=== PATIENT | female | born 1950 | race Caucasian/White ===

== ENCOUNTER → 2018-05-30 14:26 | Outpatient (CLI) | payer MEDICARE, SELFPAY ==
[2016-12-11 09:04] VITALS: BMI 28.8
[2018-05-30 16:33] LABS: AST(SGOT) 27 U/L (15-37); Alanine Aminotransfer ALT/SGPT 48 U/L (13-56); Albumin, Serum 4.3 g/dL (3.2-5.0); Alkaline Phosphatase 61 U/L (45-117); Anion Gap 8 (5-15); BUN 30 mg/dL (7-18); BUN/Creat Ratio 18.9 RATIO (10-20); Bilirubin, Direct 0.14 mg/dL (0.00-0.30); Calcium,Total 9.2 mg/dL (8.5-10.1); Chloride 102 mmol/L (98-107); Cholesterol 240 mg/dL (200); Creatinine, Serum 1.59 mg/dL (0.55-1.02); EST Glomerular Filtration Rate 34 mL/min (>60); Est Glom Filt Rate - Afr Amer 42 mL/min (>60); Globulin 3.6 g/dL (2.2-4.2); Glucose 151 mg/dL (74-106); High Density Lipoprotein 45 mg/dL; Microalbumin:Creatinine Ratio 52.9 mg/g CRE (<30 mg/g CRE); Potassium 4.3 mmol/L (3.5-5.1); Protein, Total 7.9 g/dL (6.4-8.2); Sodium Level 138 mmol/L (136-145); Thyroid Stim Hormone (TSH) 1.03 uIU/mL (0.358-3.74); Triglycerides 389 mg/dL; Very Low Density Lipoprotein 78 mg/dL (5-40)
== END ==
PROVIDERS: Family Provider Family Medicine; PCP Family Medicine; Visit Provider Family Medicine
DX: E11.9 Type 2 diabetes mellitus without complications (principal)
CPT/HCPCS: 36415; 80048; 80061; 80076; 82043; 82570; 84443

== ENCOUNTER → 2018-08-19 | Outpatient (CLI) | payer MEDICARE, SELFPAY ==
--- NOTE | 2018-08-19 09:41 | RAD_ITS ---
STUDY: X-RAY - PELVIS AND RIGHT HIP REASON FOR EXAM: Female, 68 years old. Right hip pain TECHNIQUE: 3 views of the pelvis and hip. COMPARISON: 12/10/2015 FINDINGS: There is a non-specific bowel gas pattern. Normal visualized soft tissue structures. There is narrowing with cortical sclerosis and osteophyte formation of the sacroiliac joint consistent with degenerative osteoarthritic changes. Normal bilateral superior and inferior pubic rami. There are degenerative changes of the pubic symphysis with articular narrowing and sclerosis. Normal bilateral ischial tuberosities. Degenerative changes of the left hip also demonstrated. There are osteoarthritic changes of the femoral head with marginal osteophyte formation. There is osteoarthritic spur formation of the acetabular rim. There is mild articular joint space narrowing of the hip. RAD/HIP, UNI W/ Pelvis 2-3 Views IMPRESSION: Mild osteoarthrosis of the right hip. Degenerative changes of the bilateral sacroiliac joints, pubic symphysis and left hip. Stable exam. Electronically Signed: Dejan Davis MD at 7:28 EDT , Service support ,
== END | disposition home or self-care (01) ==
LOC: MTRAD 09:39
PROVIDERS: Family Provider Family Medicine; PCP Family Medicine; Referring Provider Family Medicine; Visit Provider Family Medicine
DX: M79.604 Pain in right leg (principal)
CPT/HCPCS: 73502

== ENCOUNTER → 2018-10-21 | Outpatient (CLI) | payer MEDICARE, SELFPAY ==
--- NOTE | 2018-10-21 07:02 | BI_ITS ---
MAMMOGRAPHY - BILATERAL SCREENING REASON FOR EXAM: Female, 68 years old. Routine annual screening examination. PERTINENT HISTORY: Non-contributory. Remote right stereotactic breast biopsy. TECHNIQUE: Digital bilateral breast lavon (3D mammographic acquisition) in the CC and MLO projections. 2-D mediolateral oblique (MLO) and craniocaudad (CC) views of both breasts were obtained. CAD: Full Field Digital Mammography with Computer Added Detection was performed. COMPARISON: Comparison is made with prior study dated July 03, 2015 and December 04, 2010. FINDINGS: Breast Composition: The breasts are almost entirely fatty. There are no dominant masses or suspicious calcifications. Once again, a tissue clip marker is seen in the upper midportion of the right breast. Stable appearance of the bilateral axillary lymph nodes. No other significant abnormalities are identified. There has been no significant change since the prior study. BI/SCREEN MAMM (CAD) W/LAVON BILAT IMPRESSION: Stable bilateral screening mammogram. Yearly follow-up mammogram recommended. (A) ASSESSMENT CATEGORY: BIRADS Category 2: Benign. A letter regarding these results will be sent to the patient by the facility within 30 days. Approximately 10% of breast cancers are not detected by mammography. A normal mammogram should not delay biopsy of a clinically suspicious abnormality. [id number] Electronically Signed: Demarcus Reese, at 8:57 EDT , Service support ,
== END | disposition home or self-care (01) ==
LOC: OPBI 07:00
PROVIDERS: Family Provider Family Medicine; PCP Family Medicine; Referring Provider Family Medicine; Visit Provider Family Medicine
DX: Z12.31 Encounter for screening mammogram for malignant neoplasm of breast (principal)
CPT/HCPCS: 77063; 77067

== ENCOUNTER 2019-02-20 10:23 | Observation (INO) | payer MEDICARE, SELFPAY ==
[2019-02-20] VITALS (11 sets, daily range): BP systolic 120–139; BP diastolic 65–111; PULSE 71–105; RESP 14–21; TEMP 36.6–36.8; O2SAT 94–98; BMI 31.4; BMI 32.9
--- NOTE | 2019-02-20 10:41 | RAD_ITS ---
STUDY: X-RAY CHEST REASON FOR EXAM: Female, 69 years old. Chest pain and shortness of breath TECHNIQUE: PA and lateral views of the chest. COMPARISON: None. FINDINGS: The lungs are clear and expanded. There is no demonstrated pleural abnormality. Normal size heart. Normal mediastinum and bryan. Normal visualized pulmonary arteries. Normal visualized aortic arch and descending thoracic aorta. There are diffuse degenerative changes of the visualized thoracic spine. Normal visualized ribs, clavicles, and shoulders. RAD/Chest PA and Lateral IMPRESSION: No visualized acute process Electronically Signed: Tomer Roman MD at 12:44 EST , Service support ,
--- NOTE | 2019-02-20 10:41 | EKG12_ITS ---
Test Reason : CP Blood Pressure : / mmHG Vent. Rate : 084 BPM Atrial Rate : 084 BPM P-R Int : 136 ms QRS Dur : 082 ms QT Int : 358 ms P-R-T Axes : 064 -16 101 degrees QTc Int : 423 ms Normal sinus rhythm Nonspecific T wave abnormality Poor R-Wave Progression Abnormal ECG Confirmed by ALECIA ROMERO, LUANNE ([id number]), video tape editor TRENTON MORALES ([id number]) on 02/22/2019 11:02:19 AM Referred By: Evan Love Confirmed By:LUANNE ALSTON MD
[2019-02-20 11:00] LABS: Absolute Lymphocyte Count 2.38 X10^3/uL (0.83-4.51); Absolute Neutrophil Count 6.9 X10^3/uL (2.0-7.7); Basophil# 0.08 X10^3/uL; Basophil% 0.8 % (0-1); Eosinophil# 0.28 X10^3/uL; Eosinophils% 2.7 % (0-5); Hemoglobin 14.6 g/dL (12.0-15.0); Lymphocyte # 2.38 X10^3/ul (4.0); Lymphocyte % 22.9 % (19-41); Mean Corp Hgb Conc 33.2 g/dL (32-36); Mean Corpuscular Hgb 30.5 pg (27.0-32.0); Mean Corpuscular Volume 92.1 fL (81-99); Mean Platelet Vol. 11.1 fl (6.2-12.0); Monocyte# 0.67 X10^3/uL; Monocyte% 6.4 % (0-10); NRBC Flagged by Analyzer 0 % (0-5); Neutrophil # 6.94 X10^3/uL (2.7-7.7); Neutrophil % 66.8 % (47-70); Platelet Count 236 K/mm3 (150-450); RBC Distribution Width CV 12.3 % (11.6-14.6); RBC Distribution Width SD 42.1 fl (35.1-43.9); Red Blood Count 4.78 M/mm3 (4.2-5.4); White Blood Count 10.4 K/mm3 (4.4-11.0)
[2019-02-20 11:15] LABS: Anion Gap 7 (5-15); BUN 23 mg/dL (7-18); Calcium,Total 9.1 mg/dL (8.5-10.1); Chloride 104 mmol/L (98-107); Creatinine, Serum 1.28 mg/dL (0.55-1.02); EST Glomerular Filtration Rate 44 mL/min (>60); Est Glom Filt Rate - Afr Amer 53 mL/min (>60); Estimated Creatinine Clearance 32.81 ml/min; Glucose 248 mg/dL (74-106); Potassium 4.5 mmol/L (3.5-5.1); Sodium Level 135 mmol/L (136-145)
--- NOTE | 2019-02-20 11:26 | ED.VIS.GEN ---
History of Present Illness Chief Complaint: Chest Pain Informant: Patient Onset: Days Context: Sudden Onset Timing: Intermittent Current Severity: Mild Maximum Severity: Severe Narrative: Patient is a 69-year-old female presenting with a sudden onset of shortness of breath and chest pain. Patient states she was walking to take a shower when she suddenly felt tightness and heaviness in her chest and felt she could not catch her breath. She states symptoms lasted for about 20 minutes. She did have some radiation of pain down her left arm. She states that she only has a mild heaviness in her chest now. She states she used her CPAP with his oxygen for shortness of breath but did help her symptoms. She notes she is never had anything like this before. She did have a cardiac catheterization about 20 years ago and was told that it was normal. She has a history of diabetes and hypertension. She denies any other complaints at this time. She notes yesterday as she was having chills but that is not occurring today. She did have some mild nausea when the episode happened. She denies any swelling of her extremities or history of blood clots. Past Medical History - Allergies and Home Meds Allergies/Adverse Reactions: Allergies cefazolin Allergy (Verified 02/20/19 10:27) Shortness of breath codeine Allergy (Verified 02/20/19 10:27) Shortness of breath morphine Allergy (Verified 02/20/19 10:27) Other naloxone [Naloxone] Allergy (Verified 02/20/19 10:27) Shortness of breath pentazocine Allergy (Verified 02/20/19 10:27) Shortness of breath pentazocine lactate [From Talwin] Allergy (Verified 02/20/19 10:27) Shortness of breath acetaminophen [From Tylenol] Adverse Reaction (Verified 02/20/19 10:27) Nausea Primary Care Physician: Lianet Peters MD [Primary Care Provider] - Past Medical History: - - HTN, DM Surgical History: total knee arthroplasty Smoking Status: Current every day smoker Review of Systems All systems negative except as indicated Cardiovascular: Reports: Chest pain Respiratory: Reports: Dyspnea Physical Exam Vital Signs/Narrative: Vital Signs Temp Pulse Resp BP Pulse Ox 02/20/19 10:24 98 F 91 18 124/111 H 98 Inital Vital Signs reviewed: Yes General: Well nourished, Well developed, No Acute Distress Head: Normocephalic, Atraumatic Eyes: Perrl, EOMI ENT: Moist mucous membranes, No rhinorrhea Neck: Supple, Nontender Cardiovascular: Regular rate, Regular rhythm, No murmurs Respiratory: No distress, CTA bilaterally, Chest nontender. Negative for: Wheezing Abdomen: Soft, Nontender, Nondistended, Normal bowel sounds Back: Nontender, Normal Inspection Extremities: Nontender, No edema Skin: Normal color, No rash Neurological: Alert, Oriented x3, Cranial nerves II-XII grossly intact, Normal Strength, Normal Sensation Psychological: Normal affect, Normal Mood Diagnostic/Tx/Re-eval Chest X-Ray - ED: 2 View, Read by ED Physician, No Acute Disease Laboratory Data 02/20/19 02/20/19 10:30 10:30 WBC 10.4 RBC 4.78 Hgb 14.6 Hct 44.0 MCV 92.1 MCH 30.5 MCHC 33.2 RDW Std Deviation 42.1 RDW Coeff of Dede 12.3 Plt Count 236 MPV 11.1 Immature Gran % (Auto) 0.400 Neut % (Auto) 66.8 Lymph % (Auto) 22.9 [place] % (Auto) 6.4 Eos % (Auto) 2.7 Baso % (Auto) 0.8 Absolute Neuts (auto) 6.9 Absolute Lymphs (auto) 2.38 Nucleated RBC % 0 Sodium 135 L Potassium 4.5 Chloride 104 Carbon Dioxide 24.0 Anion Gap 7 BUN 23 H Creatinine 1.28 H Estim Creat Clear Calc 32.81 Est GFR (MDRD) Af Amer 53 L Est GFR (MDRD) Non-Af 44 L BUN/Creatinine Ratio 18.0 Glucose 248 H Calcium 9.1 Troponin I 0.034 - Rhythm Strip Rhythm Strip: Sinus Rhythm Rate: 84 Ectopy: None - EKG Initial EKG Interpretation: Sinus Rhythm, - - Sinus rhythm at a rate of 84 Normal axis Normal intervals Nonspecific T wave inversion in aVL Compared to prior EKG on 12/09/2016 T wave inversion is new but no other dynamic changes - Medical Decision Making Patient is evaluated for an episode of chest pain and shortness of breath. She does have some cardiac risk factors including age and hypertension as well as nonspecific repolarization in her EKG. Troponin is normal. Patient is given 1 of oral nitroglycerin and does have improvement of her pain. She is given a full dose aspirin in the emergency room. She will be admitted for further cardiac evaluation and likely stress test. She is agreeable to this plan. Discussed with Dr. Love who is agreeable with plan. Patient stable for the PCU at time of disposition. ED Disposition - Plan for ED Patient: Disposition: Home or Assisted Living Diagnosis: Chest pain Referrals: Lianet Peters MD [Primary Care Provider] -
[2019-02-20] MEDS: Aspirin 81 MG TAB.CHEW 324 MG PO (11:50)
[2019-02-20] MEDS: Nitroglycerin SL (ED/IMG/CATH) 0.4 MG TABLET SUBLINGUAL (12:02)
--- NOTE | 2019-02-20 12:20 | NURSING ---
PCU OBS KIEL MENDEZ
--- NOTE | 2019-02-20 12:55 | HP.PCM_ITS ---
History of Present Illness Date of Admission: 02/20/19 Chief Complaint: CP and SOB The patient is a 69 year old F with PMH as below who presents with about a 1 year history of intermittent chest pain. There was really no association with activity over the last year with this chest pain, however today she had a recurrence of this sharp chest pain in the middle of her chest that would radiate down her left arm and it became worse with exertion as she was climbing up the stairs. She thought about using her 's CPAP to see if that would help and it did not really relieve the pain. She presented to the ER where she had a normal EKG and a troponin of 0.034. She has not had this chest pain prior to a year ago but there is been significant stress in her life with health issues in her . She denies any lightheadedness or dizziness but does have significant shortness of breath with these episodes. She states that the chest pain is better but still not gone and she still has some pain going down her left arm. She has had a cardiac cath and stress test years ago and does not remember why. Past Medical History Past Medical History (Chronic Problems): Chronic Problems CAD (coronary artery disease) (Chronic) HTN (hypertension) (Chronic) HLD (hyperlipidemia) (Chronic) GERD (gastroesophageal reflux disease) (Chronic) Type II diabetes mellitus (Chronic) Allergies cefazolin Allergy (Verified 02/20/19 10:27) Shortness of breath codeine Allergy (Verified 02/20/19 10:27) Shortness of breath morphine Allergy (Verified 02/20/19 10:27) Other naloxone [Naloxone] Allergy (Verified 02/20/19 10:27) Shortness of breath pentazocine Allergy (Verified 02/20/19 10:27) Shortness of breath pentazocine lactate [From Talwin] Allergy (Verified 02/20/19 10:27) Shortness of breath acetaminophen [From Tylenol] Adverse Reaction (Verified 02/20/19 10:27) Nausea Home Medications: Ambulatory Orders Medication Instructions Recorded Aspirin E.C. [Ecotrin] 81 mg PO DAILY 12/15/13 Escitalopram Oxalate [Lexapro] 10 mg PO DAILY 02/20/19 Glimepiride 4 mg PO DAILY 02/20/19 Metformin HCl 1,000 mg PO QHS 02/20/19 Quinapril HCl 20 mg PO DAILY 02/20/19 Surgical History: cholecystectomy, total knee arthroplasty, - - Carpal tunnel Lives: Spouse/ Significant Other Smoking Status: Current every day smoker Tobacco Use: Cigarettes Alcohol: None Drugs: None - *Family History Maternal History Items: Dementia Paternal History Items: Cancer Review of Systems Constitutional: Denies: Chills, Fever, Weight Change HEENT: Denies: Head Aches, Sinus Congestion, Sinus Drainage Cardiovascular: Reports: Chest Pain. Denies: Palpitations Respiratory: Reports: Shortness of Breath. Denies: Cough, Shortness of breath at rest, Sputum production Gastrointestinal: Denies: Abdominal Pain, Nausea, Vomiting Genitourinary: Denies: Dysuria Musculoskeletal: Denies: Joint Pain, Joint Tenderness Skin: Denies: Rash, Wounds Neurological: Denies: Numbness, Tingling, Focal weakness Psychiatric: Denies: Anxiety, Depression Hematologic/ Lymphatic: Denies: Easy Bruising, Easy Bleeding VTE Information - Inpt Only VTE Present on Admission: No Patient Problems: Active and Suspected Problems Chest pain (Acute) - Physical Exam Vitals/I&O's: Vital Signs Temp Pulse Resp BP Pulse Ox 98 F 78 21 H 131/73 H 95 02/20/19 10:24 02/20/19 12:08 02/20/19 12:08 02/20/19 12:08 02/20/19 12:08 Oxygen Delivery Method Room Air Weight: 172 lb Body Mass Index (BMI) 31.4 Finger Stick Blood Glucose 275 General: Alert, Oriented x3, Cooperative, No apparent distress HEENT: Atraumatic, PERRLA, EOMI, Normocephalic Oral: Moist Mucosa Neck: Supple, No JVD Lungs: Clear to auscultation, Normal air movement, No rhonchi, No wheeze, No rales Cardiovascular: Regular rate, Regular Rhythm, Normal S1, Normal S2, No murmurs Abdomen: Soft, Non Tender, Non-Distended, No Hepato-splenomegaly Extremities: No edema, Capillary Refill Less than 3 Seconds Skin: No rashes, No breakdown Neurological: Neuro grossly intact, Sensory exam intact to light touch and pain Psych/Mental Status: Normal Affect, Appropriate Laboratory Results 02/20/19 10:30: WBC 10.4, RBC 4.78, Hgb 14.6, Hct 44.0, MCV 92.1, MCH 30.5, MCHC 33.2, RDW Std Deviation 42.1, RDW Coeff of Dede 12.3, Plt Count 236, MPV 11.1, Immature Gran % (Auto) 0.400, Neut % (Auto) 66.8, Lymph % (Auto) 22.9, [place] % (Auto) 6.4, Eos % (Auto) 2.7, Baso % (Auto) 0.8, Absolute Neuts (auto) 6.9, Absolute Lymphs (auto) 2.38, Nucleated RBC % 0 02/20/19 10:30: Sodium 135 L, Potassium 4.5, Chloride 104, Carbon Dioxide 24.0, Anion Gap 7, BUN 23 H, Creatinine 1.28 H, Estim Creat Clear Calc 32.81, Est GFR (MDRD) Af Amer 53 L, Est GFR (MDRD) Non-Af 44 L, BUN/Creatinine Ratio 18.0, Glucose 248 H, Calcium 9.1, Troponin I 0.034 Current Medications Nitroglycerin (Nitrostat) 0.4 mg SUBLINGUAL Q5M PRN PRN Reason: Chest pain Last Admin: 02/20/19 12:02 Dose: 0.4 mg Documented by: Assessment/Plan All Active Problems Chest pain (Acute) 1. Chest pain with shortness of breath/HTN -This is been going on intermittently for a year. Episodes usually last just a few minutes -Initial troponin is 0.034, we will serialized -Obtain a lipid profile in the morning -EKG was unremarkable -Nuclear exercise stress test in the morning -We will continue with quinapril 2. DM 2 -She is on metformin as an outpatient, will hold and start her on sliding scale insulin -Accu-Cheks AC at bedtime 3. Anxiety/depression -Stable, she does have significant stress at home with her 's health issues -Continue with Lexapro DVT: Ambulation since she is an observation status patient Code Visit OBSV E&M: 48659 Initial observation care L2
--- NOTE | 2019-02-20 13:47 | EKG12_ITS ---
Test Reason : Blood Pressure : / mmHG Vent. Rate : 075 BPM Atrial Rate : 075 BPM P-R Int : 140 ms QRS Dur : 080 ms QT Int : 386 ms P-R-T Axes : 059 -15 108 degrees QTc Int : 431 ms Normal sinus rhythm with sinus arrhythmia Nonspecific T wave abnormality Poor R-Wave Progression Abnormal ECG Confirmed by ALECIA ROMERO, LUANNE ([id number]), image editor TRENTON MORALES ([id number]) on 02/22/2019 11:18:02 AM Referred By: Evan Love Confirmed By:LUANNE ALSTON MD
[2019-02-20 14:31] LABS: Bedside Glucose 125 mg/dL (70-110)
[2019-02-20] MEDS: Nitroglycerin (INPATIENT USE) 0.4 MG TAB.SUBL SUBLINGUAL (16:56)
[2019-02-20] MEDS: Insulin Lispro 100 UNIT/ML INSULN.PEN SC ×2 (16:56→22:06)
[2019-02-20 17:00] LABS: Bedside Glucose 261 mg/dL (70-110)
[2019-02-20 23:21] LABS: Bedside Glucose 155 mg/dL (70-110)
[2019-02-21] VITALS (12 sets, daily range): BP systolic 103–161; BP diastolic 64–73; PULSE 81–106; RESP 16–20; TEMP 36.6–36.7; O2SAT 93–97
[2019-02-21] MEDS: Aspirin E.C. 81 MG Tablet PO (05:14)
[2019-02-21] MEDS: Lisinopril 20 MG Tablet PO (05:14)
[2019-02-21] MEDS: 0.9% Saline Lock 10 ML Syringe IV (05:19)
--- NOTE | 2019-02-21 05:55 | EKG12_ITS ---
Test Reason : AM EKG Blood Pressure : / mmHG Vent. Rate : 084 BPM Atrial Rate : 084 BPM P-R Int : 140 ms QRS Dur : 080 ms QT Int : 354 ms P-R-T Axes : 066 -17 107 degrees QTc Int : 418 ms Normal sinus rhythm Possible Left atrial enlargement Nonspecific T wave abnormality Abnormal ECG When compared with ECG of 20-FEB-2019 12:41, MANUAL COMPARISON REQUIRED, DATA IS UNCONFIRMED Confirmed by FELIPE ROMERO, ANTONIO ([id number]), fashion editor SHANNON SOTELO ([id number]) on 02/28/2019 3:13:12 PM Referred By: Evan Love Confirmed By:ANTONIO WANG MD
[2019-02-21 06:12] LABS: Cholesterol 238 mg/dL (200); High Density Lipoprotein 45 mg/dL; Triglycerides 298 mg/dL; Very Low Density Lipoprotein 60 mg/dL (5-40)
[2019-02-21 06:50] LABS: Bedside Glucose 252 mg/dL (70-110)
[2019-02-21] MEDS: Escitalopram Oxalate 10 MG Tablet PO (12:13)
[2019-02-21] MEDS: Insulin Lispro 100 UNIT/ML INSULN.PEN SC ×3 (12:13→21:56)
--- NOTE | 2019-02-21 12:18 | STRESSREP ---
Stress Test Report Date: 02-21-19 Procedure: Pharmacologic stress nuclear imaging study Indications: Pain Consent: Per the patient Procedure: The patient underwent pharmacologic (Regadenoson) evaluation with a peak heart rate of 114 beats per minute (75 %predicted maximal heart rate) and a peak blood pressure of 130/80 mmHg. The baseline ECG demonstrated normal sinus rhythm; poor R wave progression; nonspecific T wave abnormality. The peak pharmacologic ECG demonstrated no obvious ECG changes. There were no cardiac dysrhythmias pretest, during pharmacologic infusion, or recovery. There was no complaint of chest discomfort during pharmacologic infusion or recovery. The examination was discontinued secondary to completion of protocol. Impression: 1. Pharmacologic (Regadenoson) evaluation 2. Peak pharmacologic ECG with no obvious ECG changes. 3. There were no cardiac dysrhythmias pretest, during pharmacologic infusion, or recovery. 4. Nuclear images pending Myocardial perfusion imaging study: Technique: The patient was injected with 12.0 millicuries of technetium 99m Cardiolite and subsequently rest SPECT Cardiolite nuclear imaging was obtained in the horizontal long, vertical long, and short axis views. The patient underwent pharmacologic (Regadenoson) evaluation with a peak heart rate of 114 beats per minute (75 % percent predicted maximal heart rate) and a peak blood pressure of 130/80 mmHg. The patient was injected with 36.0 millicuries of technetium 99m Cardiolite and subsequently stress SPECT Cardiolite nuclear imaging was obtained in the horizontal long, vertical long, and short axis views. A gated Cardiolite study at peak stress was obtained. Interpretation: Rest and stress SPECT Cardiolite nuclear imaging status post realignment, normalization, and attenuation correction demonstrate the appearance of diminished tracer uptake in portions of the distal anterior, anteroseptal, and anterior apical segments which appear to be somewhat more prominent following stress as opposed to rest. There is end systolic thickening and brightening. The gated Cardiolite study demonstrates myocardial thickening and inward wall motion. The reported LVEF is 38 %. Impression: 1. Rest and stress SPECT currently clear imaging demonstrate myocardial perfusion changes potentially compatible with the effects of shifting soft tissue attenuation/artifact although an area of stress-induced myocardial ischemia involving portions of the distal anterior, anteroseptal, anteroapical segments cannot necessarily be excluded. 2. The gated Cardiolite study reports an LVEF of 38 %. This note was generated with Dragon dictation software. It may contain incorrect words, spelling, and punctuation that were not noted in checking the note before signing.
[2019-02-21 12:20] LABS: Bedside Glucose 288 mg/dL (70-110)
--- NOTE | 2019-02-21 12:41 | PN_ITS ---
Patient Problems: Active and Suspected Problems Chest pain (Acute) Subjective: Patient seen and examined. She was admitted with a complaint of chest pain. Troponins x3 were negative. Patient due for stress test today. Vitals/I&O's: Vital Signs Temp Pulse Resp BP Pulse Ox 97.8 F 84 20 H 126/71 H 95 02/21/19 12:26 02/21/19 12:26 02/21/19 12:26 02/21/19 12:26 02/21/19 12:26 Oxygen Delivery Method Room Air Weight: 180 lb 1.883 oz Body Mass Index (BMI) 32.9 Finger Stick Blood Glucose 275 Intake and Output for Last 24 Hours 02/19/19 02/20/19 02/21/19 23:59 23:59 23:59 Intake Total 480 / 880 640 / 640 Balance 480 / 880 640 / 640 General: Alert, Oriented x3, Cooperative, No apparent distress HEENT: Atraumatic, PERRLA, EOMI, Normocephalic Oral: Moist Mucosa Neck: Supple, No JVD, Negative Carotid Bruits Lungs: Clear to auscultation, Normal air movement, No rhonchi, No wheeze, No rales Cardiovascular: Regular rate, Regular Rhythm, Normal S1, Normal S2, No murmurs Abdomen: Bowel Sounds Present, Soft, Non Tender, Non-Distended, No Hepato- splenomegaly Extremities: No clubbing, No cyanosis, No edema, Capillary Refill Less than 3 Seconds Skin: No rashes, No breakdown Musculoskeletal: No Tenderness to Palpation of Joints or Extremities Lymphatic: No Cervical, Supraclavicular, or Inguinal Adenopathy Neurological: Cranial nerves II-XII grossly intact, Neuro grossly intact, Motor Exam 5/5 strength throughout Psych/Mental Status: Normal Affect, Appropriate, Alert and oriented to time, place, person, mood and affect Laboratory Results 02/20/19 13:30: Troponin I 0.044 02/20/19 14:24: POC Glucose 125 H 02/20/19 16:46: Troponin I 0.034 02/20/19 16:49: POC Glucose 261 H 02/20/19 22:05: POC Glucose 155 H 02/21/19 05:25: Triglycerides 298 H, Cholesterol 238 H, LDL Cholesterol 133 H, VLDL Cholesterol 60 H, HDL Cholesterol 45 02/21/19 06:44: POC Glucose 252 H 02/21/19 12:08: POC Glucose 288 H Current [facility]ations [facility] [facility] Admin: 02/21/19 05:14 Dose: 81 mg Documented by: Dextrose (D50w Syringe) 0 gm IV X1 PRN; Protocol PRN Reason: Hypoglycemia Escitalopram Oxalate (Lexapro) 10 mg PO DAILY [facility] Last Admin: 02/21/19 12:13 Dose: 10 mg Documented by: Glucagon () 1 mg IM .X1 PRN PRN Reason: Hypoglycemia Sodium Chloride () 250 mls @ 15 mls/hr IV .[id number] PRN PRN Reason: Saline Flush Insulin Human Lispro (Humalog Kwikpen (Bkc)) 0 unit SC ACHS [facility]; Protocol Last Admin: 02/21/19 12:13 Dose: 6 units Documented by: Lisinopril (Zestril) 20 mg PO DAILY [facility] Last Admin: 02/21/19 05:14 Dose: 20 mg Documented by: Nitroglycerin (Nitrostat) 0.4 mg SUBLINGUAL Q5M PRN PRN Reason: CARDIAC/CHEST PAIN Last Admin: 02/20/19 16:56 Dose: 0.4 mg Documented by: Sodium Chloride () 10 - 40 ml IV UD PRN PRN Reason: SALINE FLUSH Last Admin: 02/21/19 05:19 Dose: 10 ml Documented by: STROKE Vital Signs/Narrative: Vital Signs Temp Pulse Resp BP Pulse Ox 02/21/19 12:26 97.8 F 84 20 H 126/71 H 95 Medical Necessity - Tobacco Use Smoking Status: Current every day smoker Tobacco Use: Cigarettes Assessment/Plan All Active Problems Chest pain (Acute) 1. Chest pain * admitted with a complaint of chest pain; troponin was 0.034, and remained around the same after trending * had stress test today which was abnormal. * cardiology consulted; will await rec's * 2D echo ordered * lipid panel showed cholesterol of 238, triglycerides of 298 and LDL of 133. * will start high intensity statin. * 2. Type 2 diabetes mellitus: metformin on hold. ISS> Accuchecks ACHS 3. Hypertension: on lisinopril 20mg daily. 4. Anxiety and depression: on lexapro DVT prophylaxis: start therapeutic lovenox Code Visit OBSV E&M: 31501 Subsequent observation care L2
--- NOTE | 2019-02-21 12:41 | ECHOCS_ITS ---
Reason For Study: CHEST PAIN Procedure This was a 2D Doppler, Color Flow transthoracic echocardiogram. The study was technically difficult. Contrast injection was performed. Exam performed portable in patient room. Left Ventricle Normal LV size. Mild segmental systolic dysfunction (see wall motion). The estimated ejection fraction is 45 %. Diastolic function is indeterminate. Mid-Anterior : Hypokinetic. Mid- anteroseptal : Hypokinetic. Anterior [place] : Hypokinetic. Right Ventricle Normal RV size. Normal systolic function. Atria Normal left atrium. Normal right atrium. No doppler evidence for ASD. Mitral Valve There is mild mitral annular calcification. Extension of the mitral annular calcification onto the base of the posterior mitral valve leaflet. The mitral valve chordae are thickened and/or calcified. Mild (1+) mitral valve insufficiency. Tricuspid Valve Normal tricuspid valve. Trivial tricuspid valve insufficiency. Right ventricular systolic pressure estimated to be 19 mmHg. Aortic Valve Trisinus/trileaflet aortic valve. Normal aortic valve. Trivial aortic valve insufficiency. Pulmonic Valve The pulmonic valve is not well visualized. Great Vessels Normal sized aortic root. Pericardium/Pleural No pericardial effusion. Medication Diluted definity 2.0ml given slow IV push to enhance endocardial definition. MMode/2D Measurements & Calculations LVIDd: 5.2 cm IVSd: 0.91 cm Ao root diam: 3.4 cm LVIDs: 3.7 cm LVPWd: 0.86 cm RVDd: 2.7 cm FS: 29.6 % LAV(MOD-bp): 37.4 ml EDV(MOD-sp4): 117.7 ml SV(MOD-sp4): 42.8 ml LAV(MOD-bp) Indexed: 20.4 ml/m2 ESV(MOD-sp4): 74.9 ml LAV(MOD-sp2): 41.1 ml EF(MOD-sp4): 36.4 % LAV(MOD-sp4): 32.7 ml LA dimension(2D): 4.0 cm LA A4 area: 13.7 cm2 RA A4 area: 9.3 cm2 Time Measurements MV dec time: 0.25 sec Doppler Measurements & Calculations MV E max wild: 66.5 cm/sec Lat Peak E' Wild: 4.7 cm/sec Med Peak E' Iwld: 5.4 cm/sec MV A max wild: 111.0 cm/sec E/E' lat: 14.1 E/E' med: 12.4 MV E/A: 0.60 Ao V2 max: 141.3 cm/sec LV V1 max: 92.9 cm/sec PA V2 max: 104.7 cm/sec Ao max P.0 mmHg LV V1 max P.5 mmHg TR max wild: 200.4 cm/sec TR max P.1 mmHg Interpretation Summary The study was technically difficult. Contrast injection was performed. Mild segmental systolic dysfunction (see wall motion). The estimated ejection fraction is 45 %. There is mild mitral annular calcification. Extension of the mitral annular calcification onto the base of the posterior mitral valve leaflet. The mitral valve chordae are thickened and/or calcified. Mild (1+) mitral valve insufficiency. Trivial tricuspid valve insufficiency. Trivial aortic valve insufficiency. Right ventricular systolic pressure estimated to be 19 mmHg. Diastolic function is indeterminate. Ordering Physician: Maritza Suresh Referring Physician: BRIANA IBRAHIM Performed By: Didi Burrows, MAKENNA, RVT
[2019-02-21] MEDS: Atorvastatin Calcium 40 MG Tablet PO (15:26)
[2019-02-21 16:45] LABS: Bedside Glucose 298 mg/dL (70-110)
[2019-02-21 18:06] LABS: Bedside Glucose 320 mg/dL (70-110)
--- NOTE | 2019-02-21 18:49 | CON.PCM_ITS ---
Problem List (1) Chest pain Status: Acute (2) Abnormal cardiovascular stress test Status: Acute (3) HLD (hyperlipidemia) Status: Chronic (4) HTN (hypertension) Status: Chronic (5) Type II diabetes mellitus Status: Chronic (6) GERD (gastroesophageal reflux disease) Status: Chronic (7) PAD (peripheral artery disease) Status: Chronic Reason for Consult Date of Consultation: 02/21/19 History of Present Illness: The patient is a 69 year [id number] white female who is referred for evaluation of chest pain and an abnormal stress nuclear imaging study. She states for over a year she has been having episodes of chest pain that lasts for several minutes. She notes she gets a combination of heaviness in her chest as well as sharp discomfort in her chest. It can radiate to her back and her shoulder area. With her chest discomfort she becomes short of breath and dyspneic. This can occur at rest but also with exertion. She does not recall having ongoing nausea, emesis, or diaphoresis. There is been no report of near syncope or syncope. She states she has not undergone cardiovascular testing recently. Based upon her ongoing symptoms she presented to the hospital for further evaluation and care. She had troponin I levels performed which were negative. She had ECGs performed which demonstrated sinus rhythm with nonspecific T wave abnormalities which based on her most recent ECG appeared to be somewhat more prominent in the lateral limb leads. She had a chest x-ray performed which suggested no acute disease process per radiology. She has subsequent undergone evaluation with an exercise tolerance test/imaging study. The results are as noted below. Of note in 2012 she had a transthoracic echocardiogram performed which demonstrated her left ventricle be normal with an LVEF reported 55% and an exercise tolerance test/stress nuclear imaging study which based upon myocardial perfusion was considered to be negative. She states she has never undergone diagnostic cardiac catheterization. However she states she has undergone evaluation of her lower extremities with arterial studies and percutaneous intervention per peripheral vascular surgery. She denies any ongoing symptoms of acute orthopnea or PND. She has not had near syncope or syncope. There is been no ongoing lower extremity peripheral pitting edema. [] Past Medical History Allergies/Adverse Reactions: Allergies cefazolin Allergy (Verified 02/20/19 10:27) Shortness of breath codeine Allergy (Verified 02/20/19 10:27) Shortness of breath morphine Allergy (Verified 02/20/19 10:27) Other naloxone [Naloxone] Allergy (Verified 02/20/19 10:27) Shortness of breath pentazocine Allergy (Verified 02/20/19 10:27) Shortness of breath pentazocine lactate [From Talwin] Allergy (Verified 02/20/19 10:27) Shortness of breath acetaminophen [From Tylenol] Adverse Reaction (Verified 02/20/19 10:27) Nausea Home Medications: Ambulatory Orders Medication Instructions Recorded Aspirin E.C. [Ecotrin] 81 mg PO DAILY 12/15/13 Escitalopram Oxalate [Lexapro] 10 mg PO QHS 02/20/19 Glimepiride 4 mg PO DAILY 02/20/19 Metformin HCl 1,000 mg PO QHS 02/20/19 Quinapril HCl 20 mg PO DAILY 02/20/19 Past Medical History (Chronic Problems): Chronic Problems PAD (peripheral artery disease) (Chronic) CAD (coronary artery disease) (Chronic) HTN (hypertension) (Chronic) HLD (hyperlipidemia) (Chronic) GERD (gastroesophageal reflux disease) (Chronic) Type II diabetes mellitus (Chronic) Surgical History: cholecystectomy, total knee arthroplasty, - - Carpal tunnel - *Family History Maternal History Items: Dementia Paternal History Items: Cancer Lives: Spouse/ Significant Other Smoking Status: Current every day smoker Tobacco Use: Cigarettes Alcohol: None Drugs: None Review of Systems - Review of Systems General: Denies: Fever, Night Sweats, Fatigue Cardiovascular: Reports: Chest Discomfort, Chest Discomfort at Rest, Chest Discomfort with Exertion. Denies: Shortness of Breath, Orthopnea, PND, Peripheral Edema, Palpitations, Lightheadedness, Dizziness, Near Syncope, Syncope Respiratory: Denies: Cough, Sputum Production, Hemoptysis Gastrointestinal: Denies: Hematemesis, Hematochezia, Melena Genitourinary: Denies: Dysuria, Hematuria Skin: Denies: Rash Subjectve: This is a 69-year-old white female who appears to be resting comfortably at the moment in no acute distress. Objective: Vital Signs Temp Pulse Resp BP Pulse Ox 97.8 F 94 20 H 103/69 94 02/21/19 18:26 02/21/19 18:26 02/21/19 18:26 02/21/19 18:26 02/21/19 18:26 Oxygen Delivery Method Room Air Weight: 180 lb 1.883 oz Body Mass Index (BMI) 32.9 Finger Stick Blood Glucose 275 Intake and Output for Last 24 Hours 02/19/19 02/20/19 02/21/19 23:59 23:59 23:59 Intake Total 480 / 880 1000 / 1000 Balance 480 / 880 1000 / 1000 General: Awake, Alert, Oriented x 3, Cooperative, No Acute Distress HEENT: Atraumatic, Normocephalic, PERRL, EOMI, Sclera Non Icteric Oral: Moist Mucosa Neck: Supple, Good ROM, No JVD Lungs: Clear to auscultation Cardiovascular: Regular Rhythm, Normal S1, Normal S2 Vascular: No Carotid Bruits Abdomen: Bowel Sounds Present, Soft, Non Tender Extremities: No edema Neurological: No Focal Motor or Sensory Deficit Psych/Mental Status: Appropriate 02/21/19 05:25: Triglycerides 298 H, Cholesterol 238 H, LDL Cholesterol 133 H, VLDL Cholesterol 60 H, HDL Cholesterol 45 Rhythm: Sinus rhythm EKG: As noted above ECHO: As noted above Stress Test: Stress Test Report Date: 02-21-19 Procedure: Pharmacologic stress nuclear imaging study Indications: Pain Consent: Per the patient Procedure: The patient underwent pharmacologic (Regadenoson) evaluation with a peak heart rate of 114 beats per minute (75 %predicted maximal heart rate) and a peak blood pressure of 130/80 mmHg. The baseline ECG demonstrated normal sinus rhythm; poor R wave progression; nonspecific T wave abnormality. The peak pharmacologic ECG demonstrated no obvious ECG changes. There were no cardiac dysrhythmias pretest, during pharmacologic infusion, or recovery. There was no complaint of chest discomfort during pharmacologic infusion or recovery. The examination was discontinued secondary to completion of protocol. Impression: 1. Pharmacologic (Regadenoson) evaluation 2. Peak pharmacologic ECG with no obvious ECG changes. 3. There were no cardiac dysrhythmias pretest, during pharmacologic infusion, or recovery. 4. Nuclear images pending Myocardial perfusion imaging study: Technique: The patient was injected with 12.0 millicuries of technetium 99m Cardiolite and subsequently rest SPECT Cardiolite nuclear imaging was obtained in the horizontal long, vertical long, and short axis views. The patient underwent pharmacologic (Regadenoson) evaluation with a peak heart rate of 114 beats per minute (75 % percent predicted maximal heart rate) and a peak blood pressure of 130/80 mmHg. The patient was injected with 36.0 millicuries of technetium 99m Cardiolite and subsequently stress SPECT Cardiolite nuclear imaging was obtained in the horizontal long, vertical long, and short axis views. A gated Cardiolite study at peak stress was obtained. Interpretation: Rest and stress SPECT Cardiolite nuclear imaging status post realignment, normalization, and attenuation correction demonstrate the appearance of diminished tracer uptake in portions of the distal anterior, anteroseptal, and anterior apical segments which appear to be somewhat more prominent following stress as opposed to rest. There is end systolic thickening and brightening. The gated Cardiolite study demonstrates myocardial thickening and inward wall motion. The reported LVEF is 38 %. Impression: 1. Rest and stress SPECT currently clear imaging demonstrate myocardial perfusi on changes potentially compatible with the effects of shifting soft tissue attenuation/artifact although an area of stress-induced myocardial ischemia involving portions of the distal anterior, anteroseptal, anteroapical segments cannot necessarily be excluded. 2. The gated Cardiolite study reports an LVEF of 38 %. Peripheral arterial study: 12-14-16 Impression Successfully treated left posterior tibial proximal occlusion with diffuse disease involving the tibioperoneal trunk. I elected not to treat the proximal left superficial femoral artery irregular disease as it appeared to be the infrageniculate disease was flow-limiting. The left anterior tibial cannot be addressed. Attempts to engage the left peroneal were not successful. The right lower extremity demonstrates disease involving the superficial femoral as well as the proximal portion of the right anterior tibial peroneal and posterior tibial. CXR: As noted above Assessment/Plan 1. Chest pain The patient presents with chest pain. She has features that are concerning for angina pectoris and some features that are considered atypical. She is undergone a rule out a protocol which is been negative. She is undergone a pharmacologic stress nuclear imaging study which is raised concerns about the possibility of underlying myocardial ischemia. Thus, at the present time she will continue to be monitored, she will continue medical management deemed appropriate, and she will be referred for further evaluation with diagnostic cardiac catheterization. The procedure and risks were discussed with her. She was agreeable to this approach. 2. Abnormal stress nuclear imaging study She does have an abnormal stress nuclear imaging study as described above. Again it raises concern about the possibility of stress-induced myocardial ischemia. Thus she will continue evaluation care as noted above. 3. Hyperlipidemia Her lipids were evaluated. There are noted to be elevated. She has been placed on lipid-lowering therapy. 4. Hypertension Her blood pressure will be followed. She will continue medical management. 5. Diabetes mellitus She will continue evaluation care per internal medicine. 6. GERD If her cardiovascular evaluation is remarkable and consideration to be given as to whether or not her underlying gastrointestinal disease process is contributing to her symptoms and that she may need further GI evaluation. 7. Peripheral artery disease She has been diagnosed with peripheral artery disease. This increases her risk of having coronary artery disease. She will continue evaluation care as noted above. This note was generated using a voice recognition system and there may be incorrect words, spelling or punctuation that were not noted when reviewing the office note prior to saving.
[2019-02-21] MEDS: TICAGRELOR 90 MG TABLET 180 MG PO (19:46)
[2019-02-21 22:10] LABS: Bedside Glucose 334 mg/dL (70-110)
[2019-02-21] MEDS: Nitroglycerin (INPATIENT USE) 0.4 MG TAB.SUBL SUBLINGUAL ×2 (23:20→23:28)
[2019-02-22] VITALS (10 sets, daily range): BP systolic 121–156; BP diastolic 63–101; PULSE 79–95; RESP 16–18; TEMP 36.4–37; O2SAT 95–97
--- NOTE | 2019-02-22 00:37 | EKG12_ITS ---
Test Reason : CP Blood Pressure : / mmHG Vent. Rate : 090 BPM Atrial Rate : 090 BPM P-R Int : 142 ms QRS Dur : 076 ms QT Int : 376 ms P-R-T Axes : 066 -17 117 degrees QTc Int : 459 ms Normal sinus rhythm Right atrial enlargement T wave abnormality, consider lateral ischemia Abnormal ECG When compared with ECG of 21-FEB-2019 04:06, MANUAL COMPARISON REQUIRED, DATA IS UNCONFIRMED Confirmed by FELIPE ROMERO, ANTONIO ([id number]), publication editor SHANNON SOTELO ([id number]) on 02/28/2019 3:16:17 PM Referred By: Evan Love Confirmed By:ANTONIO WANG MD
[2019-02-22 05:18] LABS: Absolute Lymphocyte Count 1.95 X10^3/uL (0.83-4.51); Absolute Neutrophil Count 5.7 X10^3/uL (2.0-7.7); Basophil# 0.08 X10^3/uL; Basophil% 0.9 % (0-1); Eosinophil# 0.49 X10^3/uL; Eosinophils% 5.4 % (0-5); Hemoglobin 14.5 g/dL (12.0-15.0); Lymphocyte # 1.95 X10^3/ul (4.0); Lymphocyte % 21.6 % (19-41); Mean Corpuscular Volume 90.9 fL (81-99); Mean Platelet Vol. 11.4 fl (6.2-12.0); Monocyte# 0.83 X10^3/uL; Monocyte% 9.2 % (0-10); NRBC Flagged by Analyzer 0 % (0-5); Neutrophil # 5.65 X10^3/uL (2.7-7.7); Neutrophil % 62.6 % (47-70); Platelet Count 230 K/mm3 (150-450); RBC Distribution Width CV 12.5 % (11.6-14.6); RBC Distribution Width SD 41.1 fl (35.1-43.9); Red Blood Count 4.84 M/mm3 (4.2-5.4)
[2019-02-22] MEDS: 0.9% Saline Lock 10 ML Syringe IV (05:19)
[2019-02-22 05:34] LABS: Anion Gap 9 (5-15); BUN 28 mg/dL (7-18); BUN/Creat Ratio 21.1 RATIO (10-20); Calcium,Total 8.8 mg/dL (8.5-10.1); Chloride 105 mmol/L (98-107); Creatinine, Serum 1.33 mg/dL (0.55-1.02); EST Glomerular Filtration Rate 42 mL/min (>60); Est Glom Filt Rate - Afr Amer 51 mL/min (>60); Estimated Creatinine Clearance 31.57 ml/min; Glucose 260 mg/dL (74-106); Potassium 4.2 mmol/L (3.5-5.1); Sodium Level 138 mmol/L (136-145)
[2019-02-22] MEDS: Lisinopril 20 MG Tablet PO (05:47)
[2019-02-22] MEDS: Aspirin E.C. 81 MG Tablet PO (05:47)
[2019-02-22] MEDS: TICAGRELOR 90 MG TABLET PO (05:47)
--- NOTE | 2019-02-22 05:55 | EKG12_ITS ---
Test Reason : AM EKG Blood Pressure : / mmHG Vent. Rate : 076 BPM Atrial Rate : 076 BPM P-R Int : 136 ms QRS Dur : 080 ms QT Int : 394 ms P-R-T Axes : 035 -21 092 degrees QTc Int : 443 ms Normal sinus rhythm Nonspecific T wave abnormality Abnormal ECG When compared with ECG of 21-FEB-2019 22:33, MANUAL COMPARISON REQUIRED, DATA IS UNCONFIRMED Confirmed by FELIPE ROMERO, ANTONIO ([id number]), editorial specialist SHANNON SOTELO ([id number]) on 02/28/2019 3:20:06 PM Referred By: Evan Love Confirmed By:ANTONIO WANG MD
[2019-02-22 06:31] LABS: Bedside Glucose 282 mg/dL (70-110)
--- NOTE | 2019-02-22 08:39 | CASEMGMT ---
According to [facility] website, the following are in-network tertiary facilities: [facility], [place], [facility], [facility], [facility], [facility], [place], [facility], and . Stephen TURNER CM
--- NOTE | 2019-02-22 08:55 | CL.D_ITS ---
Patient Name: KINGSLEY GURROLA Study Date: 02/22/2019 Performing: Gregorio hCeng MD Ht: 62 inches 157 cm : 1950 Wt: 181 lbs 82 kg Age: 69 Gender: female BSA: 1.83 PROCEDURE(S) PERFORMED [id number]/LV CLINICAL PROFILE AND INDICATIONS Indications: Worsening Angina, Suspected CAD Heart Failure: None Stress/Imaging Date: 02/21/2019Stress Test with SPECT MPI: Positive Angina Classification Anginal Classification w/in 2 Weeks: CCS III CAD Presentations: Unstable angina. CONCLUSIONS Elevated Left Ventricular End Diastolic Pressure (mild) Segmented LV systolic dysfunction- Mild LVEF: by LV gram 40 % [place] Multivessel CAD RECOMMENDATIONS Risk factor modification Medical therapy Surgery consult for coronary revascularization DESCRIPTION OF PROCEDURE The patient arrived to the procedure lab. The risks and benefits of the procedure as well as a full d escription of our services here and current unavailability of surgical backup were fully explained to the patient and/or their significant other prior to the catheterization. The Timeout was completed, verifying the correct patient and procedure. The patient's procedural site was prepped and draped in the usual fashion. Local anesthetic was given subcutaneously to right radial region with Lidocaine 2% . Using a modified Seldinger technique, arterial access was obtained via the right radial artery, a 6 Fr sheath was inserted. Left Coronary Artery selective angiography was performed in multiple views u sing a 5 Fr. 4.0 [place] catheter. Right Coronary Artery selective angiography was then performed in mu ltiple views using a 5 Fr. JR 4 catheter. Left Ventriculography was performed in OCONNOR projection using a 5 Fr. Pigtail catheter. LV to AO pullback pressures were then recorded.The arterial sheath was pulled and a TR Band was applied for hemostasis 15cc air inserted CORONARY ANGIOGRAPHY DOMINANCE: Right Dominant LEFT HEART ASSESSMENT Left Ventricular Ejection Fraction: by LV Gram 40 % Anterior Hypokinesis. Apical Hypokinesis Elevated Left Ventricular End Diastolic Pressure LVEDP: 14 mmHg LEFT MAIN: Catherter engagement: arterial wave form: ventricularization, proximal: 50 % Stenosis LEFT ANTERIOR DESCENDING ARTERY: OSTIAL LAD: 90 % Stenosis PROX LAD: 85 % serial Stenosis MID LAD: Mild luminal irregularities, 25 - 50 % Stenosis DIAGONAL 1: Proximal - long: diffuse: 90 % Stenosis CIRCUMFLEX ARTERY: PROX CIRC: hazy: 75 % Stenosis MID CIRC: Mild luminal irregularities RIGHT CORONARY ARTERY: Mild luminal irregularities MID RCA: 50 % Stenosis RT PDA: Ostial - 85 % Stenosis AORTIC ROOT: Angiographically normal COMPLICATIONS No Complications PROCEDURE MEDICATIONS Versed 1 mg IV Versed 1 mg IV Oxygen: 2 L/min via nasal cannula SUMMARY OF HEMODYNAMIC DATA Time AIR REST ECG 07:33:35 AO 113/65 (84) SA 07:53:56 LV 148/-1, 15 08:15:29 LV 141/-1, 14 08:15:35 LV 147/-2, 15 08:16:47 LV 142/0, 12 08:16:53 LVp 144/-2, 14 08:17:00 AOp 145/61 (96) 08:17:05 Signed By Gregorio Cheng MD On 02/22/2019 08:54:53 Gregorio Cheng MD
--- NOTE | 2019-02-22 08:57 | PCM.PN.CARD ---
Subjectve: The patient states that she has had no ongoing chest discomfort at rest throughout the night. Objective: Vital Signs Temp Pulse Resp BP Pulse Ox 97.6 F L 94 18 156/79 H 97 02/22/19 08:45 02/22/19 08:45 02/22/19 08:45 02/22/19 08:45 02/22/19 08:45 Oxygen Delivery Method Room Air Weight: 180 lb 1.883 oz Body Mass Index (BMI) 32.9 Finger Stick Blood Glucose 275 Intake and Output for Last 24 Hours 02/20/19 02/21/19 02/22/19 23:59 23:59 23:59 Intake Total 480 / 880 1240 / 1240 Balance 480 / 880 1240 / 1240 General: Awake, Alert, Oriented x 3, Cooperative, No Acute Distress HEENT: Atraumatic, Normocephalic, PERRL, EOMI, Sclera Non Icteric Oral: Moist Mucosa Neck: Supple, Good ROM, No JVD Lungs: Clear to auscultation Cardiovascular: Regular Rhythm, Normal S1, Normal S2 Vascular: Normal Radial Pulses Abdomen: Bowel Sounds Present, Soft, Non Tender Extremities: No edema Neurological: No Focal Motor or Sensory Deficit Psych/Mental Status: Appropriate 02/22/19 04:50: WBC 9.0, RBC 4.84, Hgb 14.5, Hct 44.0, MCV 90.9, MCH 30.0, MCHC 33.0, Plt Count 230, MPV 11.4, Immature Gran % (Auto) 0.300, Neut % (Auto) 62.6, Lymph % (Auto) 21.6, [place] % (Auto) 9.2, Eos % (Auto) 5.4 H, Baso % (Auto) 0.9, Absolute Neuts (auto) 5.7, Nucleated RBC % 0 02/22/19 04:50: Sodium 138, Potassium 4.2, Chloride 105, Carbon Dioxide 24.0, Anion Gap 9, BUN 28 H, Creatinine 1.33 H, Est GFR (MDRD) Af Amer 51 L, Est GFR (MDRD) Non-Af 42 L, BUN/Creatinine Ratio 21.1 H, Glucose 260 H, Calcium 8.8 Rhythm: Sinus rhythm Medical Necessity - Tobacco Use Smoking Status: Current every day smoker Tobacco Use: Cigarettes Assessment/Plan 1. CAD The patient has undergone further evaluation with diagnostic cardiac catheterization. She has been diagnosed with multivessel CAD. Her left ventricular wall motion/overall function appears to be mildly diminished with an estimated LVEF of 40%. She will need to continue medical therapy. The recommendation has been made for transfer to a tertiary care center for consideration for CABG. 2. Hyperlipidemia Her lipids were evaluated. There are noted to be elevated. She has been placed on lipid-lowering therapy. 3. Hypertension Her blood pressure will be followed. She will continue medical management. 4. Diabetes mellitus She will continue evaluation care per internal medicine. 7. GERD She will need continued evaluation care as deemed appropriate. 7. Peripheral artery disease She has been diagnosed with peripheral artery disease. She will need to continue to follow with her peripheral vascular surgeons as deemed appropriate. This note was generated using a voice recognition system and there may be incorrect words, spelling or punctuation that were not noted when reviewing the office note prior to saving.
[2019-02-22] MEDS: Metoprolol Tartrate 25 MG Tablet PO (09:20)
[2019-02-22] MEDS: Escitalopram Oxalate 10 MG Tablet PO (09:21)
[2019-02-22] MEDS: 0.9% Normal Saline 1,000 ML 75 ML IV (09:30)
--- NOTE | 2019-02-22 10:34 | DS.PCM_ITS ---
Discharge Date and Diagnosis Date of Admission: 02/20/19 Date of Discharge: 02/22/19 - Primary Discharge Diagnosis Active and Suspected Problems Chest pain (Acute) Abnormal cardiovascular stress test (Acute) - Secondary Discharge Diagnosis Chronic Problems PAD (peripheral artery disease) (Chronic) CAD (coronary artery disease) (Chronic) HTN (hypertension) (Chronic) HLD (hyperlipidemia) (Chronic) GERD (gastroesophageal reflux disease) (Chronic) Type II diabetes mellitus (Chronic) Hospital Course and Treatment Imaging Results: Diagnostic Data Chest X-Ray 02/20/19 10:41 IMPRESSION: No visualized acute process Electronically Signed: Tomer Roman MD at 12:44 EST , Service support , cardiology- Dr Cheng Operations: None Procedures: Cardiac catheterization, Stress test Summary of Care Provided: The patient is a 69 year old F with a past medical history as listed. She was admitted through the ED 02/20/2019 with a complaint of chest pain which have been going on for about a year. Chest pain recurred the day before admission and was sharp and retrosternal and worsened with exertion. She came into the ED where EKG was normal but initial troponin was 0.034. Troponins remained around the same level and did not go up after trending. Lipid panel done was abnormal and showed elevated triglycerides, LDL and cholesterol. She was therefore started on high intensity statin. She had a stress test on 02/21/2019 which showed EF of 38% and an area of stress-induced myocardial ischemia involving portions of the distal anterior, anteroseptal and anteroapical segments. Cardiology was consulted and patient had a cardiac cath on 02/22/2019 which showed [place] multivessel CAD and LVEF by LV, 40% as well as elevated left ventricular end- diastolic pressure. Patient would require CABG so decision was made to transfer patient to [facility] for further management. She was transferred to the service of Dr. Esequiel Pettit, hospitalist at [facility] on 02/22/2019. Patient seen and examined prior to discharge, after she had a cardiac cath. She had no complaints and felt well. Review systems otherwise negative. Labs and vitals reviewed. Home medication reviewed and reconciled. o/e: Vital Signs Height 5 ft 2 in Weight: 180 lb 1.883 oz Weight in Pounds 180.1 lbs Pulse Ox 96 Temperature 98.0 F Pulse Rate 85 Respiratory Rate 18 Blood Pressure 135/78 Blood Pressure Position Sitting [] General: Alert, Oriented x3, Cooperative, No apparent distress HEENT: Atraumatic, PERRLA, EOMI, Normocephalic Oral: Moist Mucosa Neck: Supple, No JVD, Negative Carotid Bruits Lungs: Clear to auscultation, Normal air movement, No rhonchi, No wheeze, No rales Cardiovascular: Regular rate, Regular Rhythm, Normal S1, Normal S2, No murmurs Abdomen: Bowel Sounds Present, Soft, Non Tender, Non-Distended, No Hepato- splenomegaly Extremities: No clubbing, No cyanosis, No edema, Capillary Refill Less than 3 Seconds Skin: No rashes, No breakdown Musculoskeletal: No Tenderness to Palpation of Joints or Extremities Lymphatic: No Cervical, Supraclavicular, or Inguinal Adenopathy Neurological: Cranial nerves II-XII grossly intact, Neuro grossly intact, Motor Exam 5/5 strength throughout Psych/Mental Status: Normal Affect, Appropriate, Alert and oriented to time, place, person, mood and affect plan is for transfer to [facility] for CABG. - Physical Exam Vitals/I&O's: Vital Signs Temp Pulse Resp BP Pulse Ox 98.3 F 82 18 121/88 H 97 02/22/19 10:27 02/22/19 10:27 02/22/19 10:27 02/22/19 10:27 02/22/19 10:27 Oxygen Delivery Method Room Air Weight: 180 lb 1.883 oz Body Mass Index (BMI) 32.9 Finger Stick Blood Glucose 275 Intake and Output for Last 24 Hours 02/20/19 02/21/19 02/22/19 23:59 23:59 23:59 Intake Total 480 / 880 1240 / 1240 Balance 480 / 880 1240 / 1240 Laboratory Results 02/21/19 12:08: POC Glucose 288 H 02/21/19 16:41: POC Glucose 298 H 02/21/19 17:54: POC Glucose 320 H 02/21/19 21:54: POC Glucose 334 H 02/22/19 04:50: WBC 9.0, RBC 4.84, Hgb 14.5, Hct 44.0, MCV 90.9, MCH 30.0, MCHC 33.0, RDW Std Deviation 41.1, RDW Coeff of Dede 12.5, Plt Count 230, MPV 11.4, Immature Gran % (Auto) 0.300, Neut % (Auto) 62.6, Lymph % (Auto) 21.6, Fisher % (Auto) 9.2, Eos % (Auto) 5.4 H, Baso % (Auto) 0.9, Absolute Neuts (auto) 5.7, Absolute Lymphs (auto) 1.95, Nucleated RBC % 0 02/22/19 04:50: Sodium 138, Potassium 4.2, Chloride 105, Carbon Dioxide 24.0, Anion Gap 9, BUN 28 H, Creatinine 1.33 H, Estim Creat Clear Calc 31.57, Est GFR (MDRD) Af Amer 51 L, Est GFR (MDRD) Non-Af 42 L, BUN/Creatinine Ratio 21.1 H, Glucose 260 H, Calcium 8.8 02/22/19 06:12: POC Glucose 282 H Current Medications Aspirin (Ecotrin) 81 mg PO DAILYCM [facility] Last Admin: 02/22/19 05:47 Dose: 81 mg Documented by: Atorvastatin Calcium (Lipitor) 40 mg PO QHS [facility] Last Admin: 02/21/19 15:26 Dose: 40 mg Documented by: Dextrose (D50w Syringe) 0 gm IV X1 PRN; Protocol PRN Reason: Hypoglycemia Escitalopram Oxalate (Lexapro) 10 mg PO DAILY [facility] Last Admin: 02/22/19 09:21 Dose: 10 mg Documented by: Glucagon () 1 mg IM .X1 PRN PRN Reason: Hypoglycemia Sodium Chloride () 250 mls @ 15 mls/hr IV .[id number] PRN PRN Reason: Saline Flush Sodium Chloride () 1,000 mls @ 0 mls/hr IV .Q0M GASPER Sodium Chloride () 1,000 mls @ 75 mls/hr IV .[id number] [facility] Stop: 02/22/19 12:39 Last Admin: 02/22/19 09:30 Dose: 75 mls/hr Documented by: Insulin Human Lispro (Humalog Kwikpen (Bkc)) 0 unit SC ACHS [facility]; Protocol Last Admin: 02/22/19 06:51 Dose: Not Given Documented by: Lisinopril (Zestril) 20 mg PO DAILY [facility] Last Admin: 02/22/19 05:47 Dose: 20 mg Documented by: Metoprolol Tartrate (Lopressor (Beta Channing)) 25 mg PO BID [facility] Last Admin: 02/22/19 09:20 Dose: 25 mg Documented by: Nitroglycerin (Nitrostat) 0.4 mg SUBLINGUAL Q5M PRN PRN Reason: CARDIAC/CHEST PAIN Last Admin: 02/21/19 23:28 Dose: 0.4 mg Documented by: Sodium Chloride () 10 - 40 ml IV UD PRN PRN Reason: SALINE FLUSH Last Admin: 02/22/19 05:19 Dose: 10 ml Documented by: Discharge Diet: Low fat/ Low Cholesterol Home Medications: Medications to take at Discharge Aspirin E.C. [Ecotrin] 81 mg PO DAILY 12/15/13 Escitalopram Oxalate [Lexapro] 10 mg PO QHS 02/20/19 Glimepiride 4 mg PO DAILY 02/20/19 Metformin HCl 1,000 mg PO QHS 02/20/19 Quinapril HCl 20 mg PO DAILY 02/20/19 Primary Care Physician: Lianet Peters MD [Primary Care Provider] - Please follow up with your Primary Care Physician in: one week Disposition: Acute care Hospital - [facility] Minutes spent on discharge:: 50 Patient Condition:: Stable Medical Necessity - Tobacco Use Smoking Status: Current every day smoker Tobacco Use: Cigarettes Meaningful Use Info Meaningful Use Diagnoses (Choose all that apply): None applicable Code Visit Inpatient E&M: 44467 Disch Hosp
--- NOTE | 2019-02-22 11:04 | PHA.DC.MR ---
Pharmacy Service has performed discharge medication reconciliation for this patient. Home Medications Aspirin E.C. [Ecotrin] 81 mg PO DAILY 12/15/13 Escitalopram Oxalate [Lexapro] 10 mg PO QHS 02/20/19 Glimepiride 4 mg PO DAILY 02/20/19 Metformin HCl 1,000 mg PO QHS 02/20/19 Quinapril HCl 20 mg PO DAILY 02/20/19 The patient's discharge medication list was reviewed for discrepancies and discrepancies were resolved.
[2019-02-22] MEDS: Insulin Lispro 100 UNIT/ML INSULN.PEN SC (11:36)
[2019-02-22 11:46] LABS: Bedside Glucose 329 mg/dL (70-110)
== END 2019-02-22 10:34 | disposition short-term general hospital (02) ==
LOC: ED 12:22 → PCU 12:33
PROVIDERS: Admitting Provider Family Medicine; Emergency Provider Emergency Medicine; Family Provider Family Medicine; PCP Family Medicine; Referring Provider Family Medicine; Visit Provider Student in an Organized Health Care Education/Training Program
DX: I25.110 Atherosclerotic heart disease of native coronary artery with unstable angina pectoris (principal); R94.39 Abnormal result of other cardiovascular function study; I10 Essential (primary) hypertension; F17.210 Nicotine dependence, cigarettes, uncomplicated; E11.51 Type 2 diabetes mellitus with diabetic peripheral angiopathy without gangrene; E78.5 Hyperlipidemia, unspecified; I08.3 Combined rheumatic disorders of mitral, aortic and tricuspid valves; K21.9 Gastro-esophageal reflux disease without esophagitis; F41.9 Anxiety disorder, unspecified; F32.9 Major depressive disorder, single episode, unspecified; Z79.899 Other long term (current) drug therapy; Z79.84 Long term (current) use of oral hypoglycemic drugs; Z79.82 Long term (current) use of aspirin
CPT/HCPCS: 36415; 71046; 78452; 80048; 80061; 82962; 84484; 85025; 93005; 93017; 93306; 93458; 96360; 96361; 99152; 99153; 99218; 99285; 99406; A9500; J7030; Q9957; Q9967; A4216; C1769; C1894; C8929; G0378; J2785

== ENCOUNTER → 2019-03-28 11:04 | Outpatient (CLI) | payer MEDICARE, SELFPAY ==
[2019-02-20 13:02] VITALS: BMI 32.9
[2019-03-28 13:20] LABS: Anion Gap 5 (5-15); BUN 30 mg/dL (7-18); BUN/Creat Ratio 23.3 RATIO (10-20); Calcium,Total 9.1 mg/dL (8.5-10.1); Chloride 104 mmol/L (98-107); Creatinine, Serum 1.29 mg/dL (0.55-1.02); EST Glomerular Filtration Rate 44 mL/min (>60); Est Glom Filt Rate - Afr Amer 53 mL/min (>60); Glucose 162 mg/dL (74-106); Potassium 3.8 mmol/L (3.5-5.1); Sodium Level 139 mmol/L (136-145)
== END ==
PROVIDERS: Family Provider Family Medicine; PCP Family Medicine; Referring Provider Nurse Practitioner Family; Visit Provider Nurse Practitioner Family
DX: I10 Essential (primary) hypertension (principal); I25.10 Atherosclerotic heart disease of native coronary artery without angina pectoris; R07.9 Chest pain, unspecified
CPT/HCPCS: 36415; 80048

== ENCOUNTER → 2019-04-18 13:33 | Outpatient (CLI) | payer MEDICARE, SELFPAY ==
[2019-03-28 13:37] VITALS: BMI 30.1
--- NOTE | 2019-04-18 13:34 | ECHOCS_ITS ---
Reason For Study: S/P CABG` Procedure This was a 2D Doppler, Color Flow transthoracic echocardiogram. The study was technically difficult. Contrast injection was performed. Exam performed in department. Left Ventricle Normal LV size. Mild segmental systolic dysfunction (see wall motion). The estimated ejection fraction is 50 %. No evidence for diastolic dysfunction. Mid-Anterior : Mildly hypokinetic. Mid- anteroseptal : Mildly hypokinetic. Anterior [place] : Mildly hypokinetic. Right Ventricle Normal RV size. Normal systolic function. Atria Normal left atrium. Normal right atrium. No doppler evidence for ASD. Mitral Valve There is mild mitral annular calcification. Extension of the mitral annular calcification onto the base of the posterior mitral valve leaflet. The mitral valve chordae are thickened and/or calcified. Mild (1+) eccentric mitral valve insufficiency. Tricuspid Valve Normal tricuspid valve. Mild tricuspid valve insufficiency. Right ventricular systolic pressure estimated to be 23 mmHg. Aortic Valve Trisinus/trileaflet aortic valve. Normal aortic valve. Pulmonic Valve The pulmonic valve is not well visualized. Great Vessels Normal sized aortic root. Pericardium/Pleural No pericardial effusion. Medication 22 gauge I.V. with prn adaptor inserted into right arm. Diluted definity 3.0ml given slow IV push to enhance endocardial definition. MMode/2D Measurements & Calculations LVIDd: 4.7 cm IVSd: 1.3 cm Ao root diam: 3.3 cm LVIDs: 3.6 cm LVPWd: 1.2 cm RVDd: 2.4 cm FS: 23.6 % LAV(MOD-bp): 45.8 ml LVAd ap4: 36.1 cm2 SV(MOD-sp4): 59.5 ml LAV(MOD-bp) Indexed: 25.4 ml/m2 EDV(MOD-sp4): 131.4 ml LAV(MOD-sp2): 44.5 ml EDV(sp4-el): 134.3 ml LAV(MOD-sp4): 46.5 ml LVAs ap4: 24.2 cm2 ESV(MOD-sp4): 71.9 ml ESV(sp4-el): 71.0 ml EF(MOD-sp4): 45.3 % EF(sp4-el): 47.2 % SV(sp4-el): 63.3 ml LA A4 area: 16.9 cm2 LA dimension(2D): 3.4 cm RA A4 area: 9.0 cm2 Time Measurements MV dec time: 0.30 sec Doppler Measurements & Calculations MV E max wild: 71.8 cm/sec Lat Peak E' Wild: 8.6 cm/sec Med Peak E' Wild: 6.2 cm/sec MV A max wild: 102.0 cm/sec E/E' lat: 8.4 E/E' med: 11.6 MV E/A: 0.70 Ao V2 max: 133.8 cm/sec LV V1 max: 91.2 cm/sec PA V2 max: 113.0 cm/sec Ao max P.2 mmHg LV V1 max P.3 mmHg TR max wild: 221.1 cm/sec TR max P.6 mmHg Interpretation Summary The study was technically difficult. Contrast injection was performed. Mild segmental systolic dysfunction (see wall motion). The estimated ejection fraction is 50 %. There is mild mitral annular calcification. Extension of the mitral annular calcification onto the base of the posterior mitral valve leaflet. The mitral valve chordae are thickened and/or calcified. Mild (1+) eccentric mitral valve insufficiency. Mild tricuspid valve insufficiency. Right ventricular systolic pressure estimated to be 23 mmHg. No evidence for diastolic dysfunction. Ordering Physician: Gregorio Cheng Referring Physician: BRIANA IBRAHIM Performed By: Didi Burrows RDCS, RVT
== END ==
PROVIDERS: Family Provider Family Medicine; PCP Family Medicine; Referring Provider Internal Medicine Cardiovascular Disease; Visit Provider Internal Medicine Cardiovascular Disease
DX: I25.10 Atherosclerotic heart disease of native coronary artery without angina pectoris (principal); Z95.1 Presence of aortocoronary bypass graft
CPT/HCPCS: 93306; Q9957; A4216; C8929

== ENCOUNTER → 2019-04-25 07:37 | Outpatient (CLI) | payer MEDICARE, SELFPAY ==
[2019-03-28 13:37] VITALS: BMI 30.1
--- NOTE | 2019-04-25 08:15 | CR.HP_ITS ---
CR - History & Physical - General Arrival date:: 04/25/19 Arrival time:: 08:40 Date of Referral:: 02/27/19 Date of CR Evaluation:: 04/25/19 Referring Physician: DR ALSTON Primary Diagnosis: CABG X3 - History of Present Cardiac Event Onset Date: Enter Onset Date of cardiac illnesses in Comment field below Current stable Angina Pectoris:: No Acute Myocardial Infarction within 12 months:: Yes Coronary Artery Bypass Graft:: Yes - CABG X3 Heart valve replacement or repair:: No PTCA or coronary stenting:: No Heart or Heart-Lung Transplant:: No Heart Failure EF <35%:: No - EF 45% Type of Symptoms:: SOB,FEW CHEST PAINS Interventions with present event:: CABG X3 Were there any complications?: NONE - Medications Home Medications: Ambulatory Orders Medication Instructions Recorded Aspirin E.C. [Ecotrin] 81 mg PO DAILY 12/15/13 atorvastatin 80 mg tablet 80 mg PO .every other day tab 03/28/19 escitalopram oxalate 10 mg tablet 10 mg PO DAILY 03/28/19 glimepiride 4 mg tablet 4 mg PO QAM 03/28/19 insulin regular human 100 unit/mL 30 unit SC BID ml 03/28/19 injection solution metoprolol tartrate 25 mg tablet 25 mg PO BID 03/28/19 multivitamin 1 cap PO DAILY 03/28/19 potassium chloride 10 mEq 10 meq PO DAILY PRN #30 tab 03/28/19 tablet,extended release sennosides 8.6 mg tablet 8.6 mg PO BID 03/28/19 furosemide 40 mg tablet 40 mg PO 2XW #30 tab 04/21/19 - Allergies Allergies/Adverse Reactions: Allergies cefazolin Allergy (Verified 02/20/19 10:27) Shortness of breath codeine Allergy (Verified 02/20/19 10:27) Shortness of breath morphine Allergy (Verified 02/20/19 10:27) Other naloxone [Naloxone] Allergy (Verified 02/20/19 10:27) Shortness of breath pentazocine Allergy (Verified 02/20/19 10:27) Shortness of breath pentazocine lactate [From Talwin] Allergy (Verified 02/20/19 10:27) Shortness of breath acetaminophen [From Tylenol] Adverse Reaction (Verified 02/20/19 10:27) Nausea - Sleep Disorder Evaluation Hx of Sleep Apnea: No Do you snore loudly (louder than talking or can be heard through closed doors)?: No Do you often feel tired/ fatigued/ sleepy during daytime?: No Has anyone observed you stop breathing during sleep?: No History of Hypertension (for STOP score): Yes STOP Results: Negative Advanced Directives - Advanced Directives Power of Drapery Supervisor: Yes - I HAVE THEM, JUST NOT ON FILE HERE ASKED TO BRING COPY TO [facility] MED RECORDS Living Will: Yes Advance Directives Information Provided: Yes Advance Directives on File: No DNR Order?:: No Past Medical History - Past Medical Illness Medical History: Past Medical History (Last Updated 03/28/19 @ 12:29 by Lobito Johnson DELIVERY DIRECTOR-C) Atherosclerosis of [place] coronary artery of [place] heart without angina pectoris (Chronic) I25.10 CABG x3 with GIRALDO to LAD, SVG to OM 2, and SVG to PDA of RCA on 02/27/[address] 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 Taylor at [facility]; Status post left heart catheterization (LHC) Onset Date: ~02/22/19 Z98.890 LEFT MAIN: Catherter engagement: arterial wave form: ventricularization, proximal: 50 % Stenosis; LEFT ANTERIOR DESCENDING ARTERY: OSTIAL LAD: 90 % Stenosis, PROX LAD: 85 % serial Stenosis, MID LAD: Mild luminal irregularities, 25 - 50 % Stenosis; DIAGONAL 1: Proximal - long: diffuse: 90 % Stenosis; CIRCUMFLEX ARTERY: PROX CIRC: hazy: 75 % Stenosis, MID CIRC: Mild luminal irregularities; RIGHT CORONARY ARTERY: Mild luminal irregularities, MID RCA: 50 % Stenosis; RT PDA: Ostial - 85 % Stenosis; AORTIC ROOT: Angiographically normal per cath 02/22/19 Surgical History: cholecystectomy, total knee arthroplasty, - - Carpal tunnel Social History - Smoking History Smoking Status: Former smoker Years Smokin Packs Smoked per Day: 1 Hx Smoking Cessation Date: 02/20/18 Hx Tobacco Use: Yes - Alcohol Use Alcohol Usage: Yes - RARE - Substance Abuse Hx Substance Use: No - Occupation Occupation (List type of work in comments):: Retired - Hobbies, Recreation, Social Activities Hobbies: Other - GOES [employer] Recreational Activities: I am able to engage in most, but not all activities Social Environment - Status Marital Status: - Current Living Arrangements Living Environment:: Alone - Children How many children do you have?: 2 Do any of your children live nearby?: Yes - Safety Do you feel safe in your surroundings?: Yes - Assistance Do you need any assistance at home?: NONE Review of Systems - Review of Systems Hints: Right click = Denies (Slash). Left click = Reports ([place]) Review of Present Symptoms: Reports: PVD, Operative Discomfort - SLIGHT POST-OP HEALING DISCOMFORT, Wound Healing - WOUND EDGES WELL APPROXIMATED WITHOUT REDNESS, EDEMA OR DRAINAGE., Fatigue, Appetite - Normal, Sleep - Normal. Denies: Shortness of Breath at Rest, Shortness of Breath with Exertion - NOTICES COMING, Angina, Dizziness/Lightheadedness, Heart Arrhythmia/Irregularities, Appetite - Special Diet - Pain Is Patient Pain Free?: Yes Risk Factor Assessment - Chief Complaint Chief Complaint: CURRENT POST CABG PT HER TODAY FOR CR EVALUATION - Vital Signs Temperature: 98.6 F Respiratory Rate: 16 Pulse Ox: 96 Blood Pressure: 124/70 Nailbeds:: PINK - Pulse Pulse Rate: 85 Pulse Rhythm: Regular - Hypertension How long have you been treated?: SEVERAL YEARS OFF AND ON On medication(s)?: YES Blood Pressure Sitting - Left Arm: 124/70 - Stress Stress: Recent, Long-standing, Home/Family - Diabetes Diabetic History: Type II Nutrition Referral for Diabetes: No - Obesity Height: 5 ft 3 in Weight:: 170 lb Weight in Pounds: 170.0 lbs Weight Source: Stated by Patient Body Mass Index (BMI): 30.1 Nutritional Referral for Obesity: No - Physical Inactivity Physical Inactivity: Recreational activity - Risk Stratification Risk Guidelines: Lowest Risk: Risk Factor for Dyslipidemia, Risk Factor for Depression, Moderate Risk: Risk Factor for Smoking, Risk Factor for Diabetes, Risk Factor for Obesity, Risk Factor for Hypertension, Risk Factor for Sedentary Lifestyle - For Smoking Smoking Risk Guidelines: Smoking Low Risk: None or quit greater than 6 months ago. Smoking Moderate Risk: Smoker or quit 6 months or less ago. Smoking High Risk: Smoker - For Dyslipidemia Dyslipidemia Risk Guidelines: Low Risk: Moderate Risk: High Risk: 15-25% fat 25.1-29% fat >/= 30% fat. <7% sat fat 7-9% sat fat >9% sat fat. <150 mg chol 150-299 mg chol >/= 300 mg chol. LDL <100 LDL 100-129 LDL >/= 130. Chol/HDL ratio <5.0 Chol/HDL ratio 5.0-6.0 Chol/HDL ratio >6.0. Triglycerides <100 Triglycerides 100-149 Triglycerides >/= 150 - For Diabetes Mellitus Diabetes Risk Guidelines: Diabetes Low Risk: HgA1c <6.5% and/or FBG <120. Diabetes Moderate Risk: HgA1c 6.6-7.9% and/or FBG 120-180. Diabetes High Risk: HgA1c >/= 8% and/or FBG >180 - For Obesity/Overweight Obesity/Overweight Risk Guidelines: Obesity Low Risk: BMI <25.0. Obesity Moderate Risk: BMI 25-29.9. Obesity High Risk: BMI >/= 30.0 - For Hypertension Hypertension Risk Guidelines: Hypertension Low Risk: Systolic <120 and Diastolic <80. Hypertension Moderate Risk: Systolic 120-139 and Diastolic 80-89. Hypertension High Risk: Systolic >/= 140 and Diastolic >/= 90 - For Sedentary Lifestyle Sedentary Lifestyle Risk Guidelines: Sedentary Lifestyle Low Risk: >/= 1,500 kcal/week. Sedentary Lifestyle Moderate Risk: 700-1,499 kcal/week. Sedentary Lifestyle High Risk: < 700 kcal/week - For Depression Depression Risk Guidelines: Depression Low Risk: Not clinically depressed. Depression Moderate Risk: Mildly depressed. Depression High Risk: Clinically depressed Motivation - Motivation to Participate On a scale of 1 to 10, how prepared are you to commit to attending program?: 10 What do you see as barriers to successfully being able to complete the program?: [facility], POSSIBLE NEEDS What do you see as the benefits of succesfully completing the program? In other words, what do you hope to get out of participating in the program?: GET BACKTO MY NORMAL Are there issues you are dealing with that will interfere with completing the program?: SP[facility]SE IN CARE CENTER Do you have a spouse or signficant other, family or friends who will help support you to complete the program?: SUPPORTIVE FAMILY
--- NOTE | 2019-04-25 08:15 | PCM.CR.ITP ---
General Information - General Information Admitting Diagnosis: CABG X3 - Education/Goals Barriers to Learning: None Individual Counseling: Initial Assessment: Nicotine/Smoking, High Blood Pressure, Overweight/Obesity, Diabetes, Hypertension, Stress Cardiac Rehabilitation Goals: 1. Maintain the individual as the primary focus of care. 2. To improve the patient's quality of life. 3. Identification of cardiac risk factors and provide cardiac risk factor management. 4. Enhance the psychosocial status of the patient. 5. Reconditioning enough to allow the patient to resume customary activities. 6. Control symptoms of cardiac disease Scale for measuring improvement of personal goals: Enter appropriate number in Comments. 2 = Unchanged. 3 = Slightly Better. 4 = Moderate Improvement. 5 = Met my Goal Personal Goals: Initial Assessment: Improve management of stress and emotions, Improve energy level, Participate in home exercise program, Get back to work, or to resume activities faster, Improve knowledge of cardiac disease, Improve muscle strength and endurance, Improve diet and eating habits (eat healthier), Control risk factors (learn risk factor modification) Exercise - Initial Assessment - Visit Date of Eval: 04/25/19 - Stages of Change Stages of Change:: Action - Stress Test Date: 02/21/19 HR (bpm):: 82 EKG: SINUS RHYTHM Blood Pressure: 130/80 - Physician Prescribed Exercise Modalities: Treadmill, Biodyne, Airdyne, NuStep, SciFit Frequency (days/week): 3x/week for 12 weeks [36 sessions] Intensity: 60-80% age predicted maximum heart rate reserve Target Heart Rate:: 98-128 - Hypertension Do any of the following apply?: Yes, Medication Resting Blood Pressure:: 124/70 - Intervention Home Exercise/Activity Goal:: Sitting Time <3 hrs/day - Education Goals:: Warm-up, RPE WILBERT Scale, S/S, Safe Exercise, Self-Monitoring - Exercise Program Goals Exercise Program Goals: Aerobic Activity >30 min, B/P <130/80 Nutrition - Initial Assessment - Program Goals Nutrition Program Goals: LDL <70. Total Cholesterol <200. HDL >45. Triglycerides <150. HgbA1C <7%. BMI <25 - Visit Date of Assessment:: 04/25/19 - Stages of Change Stages of Change:: Action - Lipids Total Cholesterol (mg/dL) Goal = less than 200 mg/dL: 150 HDL Cholesterol (mg/dL) Goal = less than 45 mg/dL: 45 LDL Cholesterol (mg/dL) Goal = less than 70 mg/dL: 133 Triglycerides (mg/dL) Goal = less than 150 mg/dL: 298 Lipid Medication: ATORVASTATIN - Diabetes Diabetes:: Yes Fasting blood glucose:: 162 Insulin: Yes Do you monitor your blood sugar at home?: Yes - ENCOURAGED TO BRING MONITOR TO CLASS - Weight Management Height: 5 ft 3 in Weight:: 170 lb - Intervention Referral to dietitian:: No - PT WAS OFFERED DIAB CLINIC, WHY WT AND DECLINED AT THIS TIME Referral to Diabetic Clinic:: No Will attend diet classes:: Yes - CR CLASSES - Education Gave educational materials for:: Signs & symptoms of hypoglycemia, Signs & symptoms of hyperglycemia, Relate diabetes to coronary artery disease, Healthy eating Tobacco - Initial Assessment - Program Goals Tobacco Program Goals: Complete smoking cessation. Attend education classes. Improve Knowledge Test score - Stage of Change Stages of Change:: Action - Learning Barriers Learning Barriers: Ready to Learn - Family Support Do you have family support?: Yes - SUPPORTIVE FAMILY - Tobacco Use Tobacco Use: Non-smoker How long ago did you quit using tobacco products?: Less than 6 months ago Years Smokin Do you use smokeless tobacco?: No - Intervention Smoking Cessation Referral:: No Individual Education/Counseling:: No Education Schedule Given:: Yes - CR CLASSES - Education Attended class for:: Treating Heart Disease, How The Heart Works, What it means to have Heart Disease, How Coronary Artery Disease is Diagnosed, Heart Procedures, What Heart Medications Do, Risk Factors & Modifications, Living an Active Life, Nutrition, Emotions & Heart Disease, Stress Management & Relaxation, Sleep Disorders & Heart Disease - PT. WILL ATTED CLASSES PER SCHEDULE Psychosocial - Initial Assess - Target Goals Target Goals: Assess presence or absence of depression. Using a valid screening tool, maximizes coping skills. Positive support system - Stages of Change Stages of Change:: Action - Psychosocial Test Tool Used:: HANDS Depression Questionnaire - Intervention PS - Interventions: Yes Attend Stress Management Classes - CR CLASSES, Yes Uses Stress Management Skills - CR CLASSES, No Referral to Mental Health, No Referral to [facility] Case Management, No Referral to Physician - Education Gave educational materials for:: Coping techniques, Signs & symptoms of depression, Stress management, Relaxation techniques - Patient/Program Goal Preventative Medication(s):: Aspirin, Beta jessica, Statin/lipid - Assistive Devices Assistive Devices:: None Fall Risk Assessed:: Yes Patient Health Questionnaire Initial Assessment 1. Little interest or pleasure in doing things: Several days 2. Feeling down, depressed, or hopeless: Not at all 3. Trouble falling or staying asleep, or sleeping too much: Not at all 4. Feeling tired or having little energy: More than half the days 5. Poor appetite or overeating: Nearly every day 6. Feeling bad about yourself -- or that you are a failure or have let yourself or your family down: More than half the days 7. Trouble concentrating on things, such as reading the newspaper or watching television: Several days 8. Moving or speaking so slowly that other people could have noticed. Or the opposite - being so fidgety or restless that you have been moving around a lot more than usual: Several days 9. Thoughts that you would be better off , or of hurting yourself in some way: Not at all How difficult have these problems made it for you to do your work, take care of things at home, or get along with other people?: Somewhat difficult Total Score: 10 ROSS-Q SV Test - Statements CAD is a disease of the arteries in the heart: False Examples of risk factors for heart disease: True Angina is chest pain or discomfort: False The benefits of resistance training include: False Eating more meat and dairy products: False Anti-platelet medications such as aspirin are important: True The only effective way to manage stress: False An exercise warm-up slowly increases heart rate: False Prepared, processed foods usually have high sodium: True Depression is common after a heart attack: False The statin medications lower cholesterol: True To control blood pressure, lower the amount of sodium: True If someone gets chest discomfort during walking: False Transfats are partially hydrogenated vegetable oils: False Sleep apnea that is not treated increases the risk: False To control cholesterol, one should become a vegetarian: False Someone knows if he/she is exercising at the right level: True Diabetes cannot be prevented with exercise & health eating: False Stress is a large risk for heart attack: True A diet that can help lower blood pressure is rich in: True - Total Score Total Correct Responses: 15 Self-Efficacy Initial Assessment We would like to know how confident you are in doing certain activities. Please select your confidence level for:: Select your confidence level for the following using the scale 1-10 where 1 is not at all confident and 10 is totally confident. Your score is the average of all 6 responses. Fatigue: How confident are you that you can keep the fatigue caused by your disease from interfering with the things you want to do? Select Number: 4 Physical Discomfort or Pain: How confident are you that you can keep the physical discomfort or pain of your disease from interfering with the things you want to do? Select Number: 4 Emotional Distress: How confident are you that you can keep the emotional distress caused by your disease from interfering with the things you want to do? Select Number: 4 Other Symptoms or Health Problems: How confident are you that you can keep other symptoms or health problems from interfering with the things you want to do? Select Number: 5 Different Tasks and Activities: How confident are you that you can do the different tasks and activities needed to manage your health condition so as to reduce your need to see a doctor? Select Number: 6 Medication: How confident are you that you can do things other than just taking medication to reduce how much your illness affects your everyday life? Select Number: 4 Total Score:: 4 Nutrition Survey - Nutrition Survey Instructions Scoring Instructions: Scoring is as follows: Yes = 1 points. No = 0 point. Patient score that is >/=12 is considered to be at potential nutritional risk and could benefit from a referral to a registered dietitian. - Nutrition Survey Initial Have you lost >10 lbs over the past 2 months without trying?: No Are you following a special diet at home for diabetes, low fat, or low salt?: No Are you interested in meeting with a dietitian for help understanding your diet?: No Do you eat less than 3 meals a day?: No Do you eat fatty meats (moeller, sausage, ribs, etc), fried foods, desserts, large amounts of salad dressings, margarine, butter, or cheese most days?: Yes Do you have food allergies? [Enter types in comment field]: No Do you eat in restaurants more than 3 times a week?: No Do you season food with salt, seasoning salt, or garlic salt?: No Do you used canned, boxed, frozen meals, or soups, seasoning packets?: No Total Score:: 1
--- NOTE | 2019-04-25 08:37 | PCM.CR.HP2 ---
CR - History & Physical - History of Present Cardiac Event Onset Date: Enter Onset Date of cardiac illnesses in Comment field below - Medications Home Medications: Ambulatory Orders Medication Instructions Recorded Aspirin E.C. [Ecotrin] 81 mg PO DAILY 12/15/13 atorvastatin 80 mg tablet 80 mg PO .every other day tab 03/28/19 escitalopram oxalate 10 mg tablet 10 mg PO DAILY 03/28/19 glimepiride 4 mg tablet 4 mg PO QAM 03/28/19 insulin regular human 100 unit/mL 30 unit SC BID ml 03/28/19 injection solution metoprolol tartrate 25 mg tablet 25 mg PO BID 03/28/19 multivitamin 1 cap PO DAILY 03/28/19 potassium chloride 10 mEq 10 meq PO DAILY PRN #30 tab 03/28/19 tablet,extended release sennosides 8.6 mg tablet 8.6 mg PO BID 03/28/19 furosemide 40 mg tablet 40 mg PO 2XW #30 tab 04/21/19 - Allergies Allergies/Adverse Reactions: Allergies cefazolin Allergy (Verified 02/20/19 10:27) Shortness of breath codeine Allergy (Verified 02/20/19 10:27) Shortness of breath morphine Allergy (Verified 02/20/19 10:27) Other naloxone [Naloxone] Allergy (Verified 02/20/19 10:27) Shortness of breath pentazocine Allergy (Verified 02/20/19 10:27) Shortness of breath pentazocine lactate [From Talwin] Allergy (Verified 02/20/19 10:27) Shortness of breath acetaminophen [From Tylenol] Adverse Reaction (Verified 02/20/19 10:27) Nausea Past Medical History - Past Medical Illness Medical History: Past Medical History (Last Updated 03/28/19 @ 12:29 by Lobito Johnson [employer]IST[employer]ODUCER-[employer]) Atherosclerosis of [place] coronary artery of [place] heart without angina pectoris (Chronic) I25.10 CABG x3 with GIRALDO to LAD, SVG to OM 2, and SVG to PDA of RCA on 02/27/[address] Taylor at 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 Taylor at [facility]; Status post left heart catheterization (LHC) Onset Date: ~02/22/19 Z98.890 LEFT MAIN: Catherter engagement: arterial wave form: ventricularization, proximal: 50 % Stenosis; LEFT ANTERIOR DESCENDING ARTERY: OSTIAL LAD: 90 % Stenosis, PROX LAD: 85 % serial Stenosis, MID LAD: Mild luminal irregularities, 25 - 50 % Stenosis; DIAGONAL 1: Proximal - long: diffuse: 90 % Stenosis; CIRCUMFLEX ARTERY: PROX CIRC: hazy: 75 % Stenosis, MID CIRC: Mild luminal irregularities; RIGHT CORONARY ARTERY: Mild luminal irregularities, MID RCA: 50 % Stenosis; RT PDA: Ostial - 85 % Stenosis; AORTIC ROOT: Angiographically normal per cath 02/22/19 Surgical History: cholecystectomy, total knee arthroplasty, - - Carpal tunnel
[2019-04-25 08:49] VITALS: BP 124/70; PULSE 85; RESP 16; TEMP 37; O2SAT 96; BMI 30.1
[2019-04-25 09:17] VITALS: BP 124/70; BP 130/80
== END ==
PROVIDERS: Family Provider Family Medicine; PCP Family Medicine; Referring Provider Internal Medicine Cardiovascular Disease; Visit Provider Internal Medicine Cardiovascular Disease
DX: I25.10 Atherosclerotic heart disease of native coronary artery without angina pectoris (principal); I73.9 Peripheral vascular disease, unspecified; I10 Essential (primary) hypertension; E78.5 Hyperlipidemia, unspecified; E11.9 Type 2 diabetes mellitus without complications; Z79.4 Long term (current) use of insulin; Z79.82 Long term (current) use of aspirin; Z79.84 Long term (current) use of oral hypoglycemic drugs; Z79.899 Other long term (current) drug therapy; Z87.891 Personal history of nicotine dependence

== ENCOUNTER → 2019-04-25 09:05 | Outpatient (CLI) | payer MEDICARE, SELFPAY ==
[2019-04-25 08:49] VITALS: BMI 30.1
[2019-04-25 10:08] LABS: AST(SGOT) 23 U/L (15-37); Alanine Aminotransfer ALT/SGPT 34 U/L (13-56); Albumin, Serum 3.8 g/dL (3.2-5.0); Alkaline Phosphatase 79 U/L (45-117); Bilirubin, Direct 0.08 mg/dL (0.00-0.30); Cholesterol 153 mg/dL (200); Globulin 4.7 g/dL (2.2-4.2); High Density Lipoprotein 48 mg/dL; Protein, Total 8.5 g/dL (6.4-8.2); Triglycerides 205 mg/dL; Very Low Density Lipoprotein 41 mg/dL (5-40)
== END ==
PROVIDERS: Family Provider Family Medicine; PCP Family Medicine; Referring Provider Nurse Practitioner Family; Visit Provider Nurse Practitioner Family
DX: I10 Essential (primary) hypertension (principal); E78.5 Hyperlipidemia, unspecified; I25.10 Atherosclerotic heart disease of native coronary artery without angina pectoris
CPT/HCPCS: 36415; 80061; 80076

== ENCOUNTER → 2019-05-16 09:38 | Outpatient (CLI) | payer MEDICARE, SELFPAY ==
[2019-04-25 08:49] VITALS: BMI 30.1
--- NOTE | 2019-05-16 09:42 | ART_ITS ---
Reason For Study: Claudication Procedure A bilateral lower extremity continuous wave Doppler with analog waveform analysis,segmental pressures,and ankle brachial indexes without exercise. Left Segmental Pressures Left brachial= 154mmHg. Left thigh = 134mmHg. Left calf = 79mmHg. Left posterior tibial artery = 71mmHg. Left dorsalis pedis artery = 75mmHg. Left digit = 44 mmHg. The left dorsalis pedis waveforms are monophasic. The left posterior tibial artery waveforms are monophasic. Right Segmental Pressures Right brachial= 147mmHg. Right thigh = >254mmHg. Right calf = 142mmHg. Right posterior tibial artery = 126mmHg. Right dorsalis pedis artery = 119mmHg. Right digit = 75 mmHg. The right dorsalis pedis waveforms are biphasic. The right posterior tibial artery waveforms are biphasic. Indices The right ankle brachial index by the dorsalis pedis is 0.77. The right ankle brachial index by the posterior tibial artery is 0.82. The right digital-brachial index is 0.49. The left ankle brachial index by the dorsalis pedis is 0.49. The left ankle brachial index by the posterior tibial artery is 0.46. The left digital-brachial index is 0.29. Interpretation Summary Moderately severe right lower extremity arterial occlusive disease. Biphasic right posterior tibial and dorsalis pedis Doppler waveforms Abnormal right digital brachial indices Severe or multi segmental disease left lower extremity. Monophasic left posterior tibial and dorsalis pedis Doppler waveforms Significantly abnormal left digital brachial indices Ordering Physician: Marielos Perla Referring Physician: Marielos Perla Performed By: Precious Orozco RVT
== END ==
PROVIDERS: PCP Family Medicine; Referring Provider Family Medicine; Visit Provider Family Medicine
DX: I73.9 Peripheral vascular disease, unspecified (principal); Z98.62 Peripheral vascular angioplasty status
CPT/HCPCS: 93923

== ENCOUNTER 2019-05-19 13:00 | Outpatient (RCR) | payer MEDICARE, SELFPAY ==
[2019-04-25 08:49] VITALS: BMI 30.1
== END 2019-05-19 23:59 ==
LOC: CR 13:00
PROVIDERS: Family Provider Family Medicine; PCP Family Medicine; Referring Provider Internal Medicine Cardiovascular Disease; Visit Provider Internal Medicine Cardiovascular Disease
DX: I25.10 Atherosclerotic heart disease of native coronary artery without angina pectoris (principal); Z95.1 Presence of aortocoronary bypass graft
CPT/HCPCS: 93798

== ENCOUNTER → 2019-06-07 09:04 | Outpatient (CLI) | payer MEDICARE, SELFPAY ==
[2019-05-26 09:36] VITALS: BMI 26.2
[2019-06-05 11:17] VITALS: BMI 26.4
[2019-06-07 10:12] LABS: Anion Gap 7 (5-15); BUN 46 mg/dL (7-18); BUN/Creat Ratio 29.3 RATIO (10-20); Calcium,Total 9.6 mg/dL (8.5-10.1); Chloride 105 mmol/L (98-107); Creatinine, Serum 1.57 mg/dL (0.55-1.02); EST Glomerular Filtration Rate 35 mL/min (>60); Est Glom Filt Rate - Afr Amer 42 mL/min (>60); Glucose 180 mg/dL (74-106); Potassium 4.2 mmol/L (3.5-5.1); Sodium Level 138 mmol/L (136-145)
== END ==
PROVIDERS: PCP Family Medicine; Referring Provider Nurse Practitioner Family; Visit Provider Nurse Practitioner Family
DX: I25.10 Atherosclerotic heart disease of native coronary artery without angina pectoris (principal); Z95.1 Presence of aortocoronary bypass graft; E78.5 Hyperlipidemia, unspecified; I10 Essential (primary) hypertension
CPT/HCPCS: 36415; 80048

== ENCOUNTER → 2019-06-14 11:39 | Outpatient (CLI) | payer MEDICARE, SELFPAY ==
[2019-05-26 09:36] VITALS: BMI 26.2
[2019-06-05 11:17] VITALS: BMI 26.4
[2019-06-14 12:45] LABS: Anion Gap 6 (5-15); BUN 36 mg/dL (7-18); BUN/Creat Ratio 27.1 RATIO (10-20); Calcium,Total 9.7 mg/dL (8.5-10.1); Chloride 105 mmol/L (98-107); Creatinine, Serum 1.33 mg/dL (0.55-1.02); EST Glomerular Filtration Rate 42 mL/min (>60); Est Glom Filt Rate - Afr Amer 51 mL/min (>60); Glucose 145 mg/dL (74-106); Potassium 3.6 mmol/L (3.5-5.1); Sodium Level 138 mmol/L (136-145)
== END ==
PROVIDERS: PCP Family Medicine; Referring Provider Nurse Practitioner Family; Visit Provider Nurse Practitioner Family
DX: I25.10 Atherosclerotic heart disease of native coronary artery without angina pectoris (principal); Z95.1 Presence of aortocoronary bypass graft; I73.9 Peripheral vascular disease, unspecified; I10 Essential (primary) hypertension; E11.9 Type 2 diabetes mellitus without complications; E78.5 Hyperlipidemia, unspecified
CPT/HCPCS: 80048

== ENCOUNTER 2019-06-16 13:00 | Outpatient (RCR) | payer MEDICARE, SELFPAY ==
[2019-04-25 08:49] VITALS: BMI 30.1
--- NOTE | 2019-05-26 09:13 | PCM.CR.ITP ---
Diagnosis - General Information Admitting Diagnosis: S/P CABG Personal Learning Style:: Audio/Visual, Written Barriers to Learning: No Barriers Stage of change r/t lifestyle modifications:: Action Gave educational material for:: Treating Heart Disease, Emotions & Heart Disease, Stress Management & Relaxation, Sleep Disorders & Heart Disease, How The Heart Works, What it means to have Heart Disease, How Coronary Artery Disease is Diagnosed, Heart Procedures, What Heart Medications Do, Risk Factors & Modifications, Living an Active Life, Nutrition - Education/Goals Individual Counseling: Initial Assessment: Abnormal Cholesterol Levels, High Blood Pressure, Overweight/Obesity Cardiac Rehabilitation Goals: 1. Maintain the individual as the primary focus of care. 2. To improve the patient's quality of life. 3. Identification of cardiac risk factors and provide cardiac risk factor management. 4. Enhance the psychosocial status of the patient. 5. Reconditioning enough to allow the patient to resume customary activities. 6. Control symptoms of cardiac disease Personal Goals: Initial Assessment: Improve management of stress and emotions, Improve energy level, Get back to work, or to resume activities faster, Improve knowledge of cardiac disease, Improve diet and eating habits (eat healthier), Control risk factors (learn risk factor modification) Scale for measuring improvement of personal goals: Enter appropriate number in Comments. 2 = Unchanged. 3 = Slightly Better. 4 = Moderate Improvement. 5 = Met my Goal - Diagnosis & Disease Process Outcomes/Goals: Pt IDs own risk factors & lifestyle modifications by Session 10, Verbalizes symptoms of angina & response by session 3., Pt independently manages Plan/Interventions: Assist Pt to ID & engage in lifestyle modification to reduce CVD risk, Instruct on individual risk factors, Review symptoms of angina & emergency actions, Review secondary diagnosis & identify educational needs. 30 day Reassessments:: Progressing Exercise - 30-day Assessment - Visit Date of Eval: 05/26/19 Session #:: 11 - Physician Prescribed Exercise Modalities: Treadmill, Airdyne, NuStep Frequency: 3x/week for 12 weeks [36 sessions] Intensity: 60-80% of age predicted maximum heart rate reserve Current METSs:: 3.5 Target Heart Rate:: 98-128 Current RPE:: 12-13 Maximum Excercise HR:: 106 Resting Blood Pressure: 106/64 Maximum Exercise Blood Pressure: 140/72 EKG Type: NSR TO SINUS TACHYCARDIA WITH OCCAS. PACs Current Physical Activity or Exercising minutes: 30 MIN TWICE DAILY - Outcomes & Goals Goals:: Verbalizes understanding of THR, RPE & goal METS by session 6, Documents in home exercise log/reports 30 min aerobic 5 day/wk by DC, Demonstrates accurate pulse taking by DC - Intervention & Plan Exercise Program Goals: Instruct on personal THR & RPE, Instruct on MET level & personal MET goal, Show patient to take own pulse /validate performance until accurate, Instruct on home exercise - 30-day Reassessments 30 day Reassessments:: Progressing - Physical Activity Home Exercise Physical Activity - Home Exercise: Safe Exercise, Warm-up, Self-monitoring, Cool-Down, Home Exercise > 30 min Daily, Sitting Time <3 hours/daily - Outcomes & Goals Outcomes/Goals: Demonstrates correct Warm-up/exercise Cool-Down (S3) if = 2.5 METs, Verbalizes symptoms of exercise intolerance by Session 3 (S3), Demonstrate safe equipment use (S3) & follows exercise prescrition (6) - Intervention & Plan Plan/Intervention: Instruct warm-up & cool-down if exercising at > 2 METs, Instruct on symptoms of exercise intolerance & actions to take, Instruct & monitor on saf, Assess intial functional capacity & safety risk - 30-day Reassessments 30 day Reassessments:: Progressing Nutrition - 30-Day Assessment - Program Goals Nutrition Program Goals: LDL <100 optimal. 100 - 129 Near optimal. 130 - 159 Borderline High. 160 - 189 High. Total Cholesterol <200 desirable. 200 - 239 Borderline High. >/= 240 High. HDL < 40 Low >/=60 High. Triglycerides <150 desirable. <199 optimal. VlDL 5 - 40. HgbA1C <7%. BMI <25 Patient has diagnosis of Hyperlipidemia (ICD E78)?: Yes - Visit Date of Assessment:: 05/26/19 Session #:: 11 - Cholesterol/Lipids Triglycerides (mg/dL): 298 - 02/21/2019 Total Cholesterol (mg/dL): 238 LDL Cholesterol (mg/dL): 133 HDL Cholesterol (mg/dL): 45 Determine presence & major risk factors that modify LDL goal: Hypertension or hypertensive medication, Age men > 45 years; women >/= 55 years Outcomes/Goals: Pt IDs own risk factors & lifestyle modifications by Session 10, Verbalizes symptoms of angina & response by session 3., Pt independently manages Intervention/Plan: Instruct on personal lipid levels & lipid goals/NCEP guidelines, Instruct on cholesterol Referral to dietitian:: Yes 30-day Reassessments:: Progressing - Diabetes (Other Core Measures) Diabetes Type: Diagnosis Type II ICD-10 E11 Insulin dependent injection/pump?: Yes - REGULAR INSULIN Non-Insulin Dependent?: Yes - GLIMEPIRIDE Referral to Diabetic Clinic:: Yes Outcomes/Goals:: Able to state symptoms of, Able to state, Able to state Intervention/Plan:: Instruct on, Refer to, Instruct on 30-day Reassessments:: Progressing - Weight Mgt (Other Care) Not Applicable: No Height: 5 ft 9 in Weight:: 177 lb 8 oz BMI: 26.2 Diagnosis Overweight/Obesity BMI> 30% ICD-10 E66: No Diagnosis High BMI/Morbid Obesity BMI> 35% ICD-10 Z68: No Outcomes/Goals: Pt sets, maintains & shows weight loss goal & trend during rehab Intervention/Plan: Instruct on ideal BMI & set weight loss goal w/patient, Assist pt to ID & incorporate diet changes for weight loss by S9, Encourage goal of using 250-300dcal per session for weight loss 30 day Reassessments:: Met - Healthy Eating Habits Will attend diet classes:: Yes Outcomes/Goals:: Consume diet rich in vegs,fruits,whole grain/high fiber,fish,lean meat, Limit sat/trans fats,cholesterol & added salts & sugars Intervention/Plan:: Assess current eating habits 30-day Reassessments:: Progressing - Education Gave educational materials for:: Healthy eating Medical- 30-Day Assessment - Visit Date of Eval: 05/26/19 - Medication Compliance Preventative Medication(s):: Aspirin, Statin/lipid, Beta jessica H/O mental health issues: depression, anxiety, or addiction?: No Doesn?t believe in the benefits of treatment?: No Believes medications are unnecessary or harmful?: No Has a concern about medication side effects?: No Expresses concern over the cost of medications?: No Outcomes/Goals: Verbalizes medications,desired effect & common side effects @ DC, Pt self-reports following medication regimen, Keeps card in wallet w/medications listed by DC Interventions/plans: Instruct on medication effects & side effects, Review medication list w/patient every two weeks, Instruct importance of taking meds as ordered & assist problem solving 30-day Reassessments:: Progressing - Tobacco Use Tobacco Use: Non-smoker - Hypertension Resting Blood Pressure:: 106/64 [place] [employer] Hypertension Guidelines: [place] [employer] Hypertension Guidelines. Normal BP Less than 120/80. Elevated BP 120/80. Hypertension Stage 1: BP 130-139/80-89. Hypertesnion Stage 2: BP 140 or higher/90 or higher. Hypertension Crisis: BP higher than 180/120 Peak Exercise Blood Pressure:: 140/72 Outcomes/Goals: Able to verbalize/achieve optimal blood pressure <130/80, Incorporates diet changes & exercise for blood pressure control by DC Interventions/plan: Instruct on optimal blood pressure, hypertension & medications, Instruct on effects of sodium, alcohol, stress, exercise &hypertension 30 day Reassessments:: Progressing - Tobacco Cessation Referral Smoking Cessation Referral:: No Individual Education/Counseling:: No Education Schedule Given:: Yes Psychosocial - 30-Day Assess - VIsit Date of Eval: 05/26/19 Session #:: 11 Not Applicable: No History of previous Mental disease:: No - Target Goals Target Goals: Assess presence or absence of depression. Using a valid screening tool, maximizes coping skills. Positive support system - Psychosocial Test Tool Used:: [employer] Interactive QOL Cardiac, PHQ-9 Questionnaire phq-9 Severity: Severity. 1-4 Minimal Depression. 5-9 Mild Depression. 10-14 Moderate Depression. 15-19 Moderately Sever Depression. 20-27 Severe Depression. Rule: Total Score:: 10 - MODERATE DEPRESSION PER PHQ-9 SCORE - Referral to Behavioral Health PS - Interventions: Yes Referral to Behavioral Health if PHQ-9 score >9:, Yes Referral to Physician if PHQ-9 if score is 5-9: - PATIENT COULD BENEFIT FROM COUNSELING, Yes Attend Stress Management Classes, No Referral to [facility] - Outcomes/Goals: See list Psychosocial Outcomes/Goals:: ID's personal stressors & 2 strategies to manage stress by discharge - Intervention/Plan: See List Interventions/Plan:: Assess stressors,coping strategies & signs of derpression on admission, Instruct/assist pt to develop coping & personal stress Mgt strategies, Instruct patient to recognize signs & symptoms of depression, Instruct patient to recog - 30-day Reassessments: 30 day Reassessments:: Progressing Patient Health Questionnaire 30-Day Re-eval Assessment 1. Little interest or pleasure in doing things: Several days 2. Feeling down, depressed, or hopeless: Not at all 3. Trouble falling or staying asleep, or sleeping too much: Not at all 4. Feeling tired or having little energy: More than half the days 5. Poor appetite or overeating: Nearly every day 6. Feeling bad about yourself -- or that you are a failure or have let yourself or your family down: More than half the days 7. Trouble concentrating on things, such as reading the newspaper or watching television: Several days 8. Moving or speaking so slowly that other people could have noticed. Or the opposite - being so fidgety or restless that you have been moving around a lot more than usual: Several days 9. Thoughts that you would be better off , or of hurting yourself in some way: Not at all How difficult have these problems made it for you to do your work, take care of things at home, or get along with other people?: Somewhat difficult Total Score: 10 Self-Efficacy 30-Day Re-eval Assessment We would like to know how confident you are in doing certain activities. Please select your confidence level for:: Select your confidence level for the following using the scale 1-10 where 1 is not at all confident and 10 is totally confident. Your score is the average of all 6 responses. Fatigue: How confident are you that you can keep the fatigue caused by your disease from interfering with the things you want to do? Select Number: 4 Physical Discomfort or Pain: How confident are you that you can keep the physical discomfort or pain of your disease from interfering with the things you want to do? Select Number: 4 Emotional Distress: How confident are you that you can keep the emotional distress caused by your disease from interfering with the things you want to do? Select Number: 4 Other Symptoms or Health Problems: How confident are you that you can keep other symptoms or health problems from interfering with the things you want to do? Select Number: 5 Different Tasks and Activities: How confident are you that you can do the different tasks and activities needed to manage your health condition so as to reduce your need to see a doctor? Select Number: 6 Medication: How confident are you that you can do things other than just taking medication to reduce how much your illness affects your everyday life? Select Number: 4 - VERY DOWN AND DEPRESSED, POOR POSITIVE OUTLOOK Total Score:: 4
[2019-05-26 09:36] VITALS: BP 106/64; BP 140/72; BMI 26.2
== END 2019-06-17 23:59 ==
LOC: CR 13:00
PROVIDERS: Family Provider Family Medicine; PCP Family Medicine; Referring Provider Internal Medicine Cardiovascular Disease; Visit Provider Internal Medicine Cardiovascular Disease
DX: I25.10 Atherosclerotic heart disease of native coronary artery without angina pectoris (principal); Z95.1 Presence of aortocoronary bypass graft
CPT/HCPCS: 93798

== ENCOUNTER → 2019-06-20 08:29 | Outpatient (CLI) | payer MEDICARE, SELFPAY ==
[2019-05-26 09:36] VITALS: BMI 26.2
[2019-06-05 11:17] VITALS: BMI 26.4
--- NOTE | 2019-06-20 08:30 | AAVD_ITS ---
Reason For Study: aortic atherosclerosis, iliac stenosis Aorta Measurements Aorta Doppler Measurements Proximal aorta measures.9 x 1.02cm. in cross- Peak systolic flow velocities within the proximal sectional axis. aorta measure 68.8 cm/sec. Proximal aorta measures1.0cm. in longitudinal Peak systolic flow velocities within the mid aorta axis. measure 77.8 cm/sec. Mid aorta measures.97 x .94cm. in cross-sectional Peak systolic flow velocities within the distal axis. aorta measure 72.3 cm/sec. Mid aorta measures1.01cm. in longitudinal axis. Distal aorta measures1.08 x 1.06cm. in cross- sectional axis. Distal aorta measures1.08cm. in longitudinal axis. Left Iliac Artery Left iliac artery measures .74 x .83 cm. in the cross-sectional axis. Left iliac artery measures .72 cm. in the longitudinal axis. Peak systolic velocity in the left iliac artery measures 97.9 cm/sec. Right Iliac Artery Right iliac artery measures .63 x .83 cm. in the cross-sectional axis. Right iliac artery measures .76 cm. in the longitudinal axis. Peak systolic velocity in the right iliac artery measures 107 cm/sec. Procedure The exam was diagnostic. Exam performed in department. Interpretation Summary 1. no aortoiliac stenosis or aneurysm seen. Ordering Physician: Moose Singh Performed By: Suresh Arredondo RVT
--- NOTE | 2019-06-20 08:31 | ART_ITS ---
Reason For Study: atherosclerosis with claudication Procedure A bilateral lower extremity continuous wave Doppler with analog waveform analysis and ankle brachial indexes. Left Segmental Pressures Left brachial= 169mmHg. Left posterior tibial artery = 98mmHg. Left dorsalis pedis artery = 96mmHg. Left digit = 52 mmHg. The left dorsalis pedis waveforms are monophasic. The left posterior tibial artery waveforms are monophasic. Right Segmental Pressures Right brachial= 166mmHg. Right posterior tibial artery = 146mmHg. Right dorsalis pedis artery = 156mmHg. Right digit = 103 mmHg. The right dorsalis pedis waveforms are biphasic. The right posterior tibial artery waveforms are biphasic. Indices The right ankle brachial index by the dorsalis pedis is .92. The right ankle brachial index by the posterior tibial artery is .86. The right digital-brachial index is .61. The left ankle brachial index by the dorsalis pedis is .57. The left ankle brachial index by the posterior tibial artery is .58. The left digital-brachial index is .31. Interpretation Summary 1. righ normal at rest with triphasic flow and ISIDRO 0.92 2. Left moderate occlussive disease and ISIDRO 0.58. Ordering Physician: Moose Singh Performed By: KAYDEN MARCOS Santos
--- NOTE | 2019-06-20 08:31 | ADU_ITS ---
Reason For Study: atherosclerosis with claudication Right Velocities Left Velocities Ext. Iliac Artery, dist = 130.8 cm./sec. Ext Iliac Artery, dist = 113.4 cm./sec. Common Femoral Artery, mid = 108.8 cm./sec. Common Femoral Artery, mid = 99.8 cm./sec. Supf Femoral Artery, prox = 441.6 cm./sec. Supf. Femoral Artery, prox = 351.4 cm./sec. Supf Femoral Artery, mid = 144.1 cm./sec. Flow could not be demonstrated in the Prox/Mid to Supf Femoral Artery, dist. = 92.3 cm./sec. Mid SFA. Profunda Femoral Artery = 59.7 cm./sec. Supf. Femoral Artery, dist = 86.9 cm./sec. Popliteal Artery, prox. = 81.9 cm./sec. Profunda Femoral Artery = 163.7 cm./sec. Popliteal Artery, mid = 52.4 cm./sec. Popliteal Artery, proximal, = 46.2 cm./sec. Popliteal Artery, dist = 67.1 cm./sec. Popliteal Artery, mid = 52.3 cm./sec. Post. Tibial Artery, prox = 59.8 cm./sec. Popliteal Artery, distal = 31.4 cm./sec. Post. Tibial Artery, mid = 61.0 cm./sec. Post. Tibial Artery, prox = 35.1 cm./sec. Post. Tibial Artery, dist = 63.4 cm./sec. Post Tibial Artery, mid = 38.8 cm./sec. Peroneal Artery, prox = 24.1 cm./sec. Post Tibial Artery, dist. = 38.8 cm./sec. Peroneal Artery, mid = 31.5 cm./sec. Peroneal Artery, prox = 23.2 cm./sec. Peroneal Artery,dist = 19.2 cm./sec. Peroneal Artery, mid = 23.2 cm./sec. Ant. Tibial Artery, prox = 57.3 cm./sec. Peroneal Artery,dist. = 23.2 cm./sec. Ant. Tibial Artery, mid = 52.3 cm./sec. Ant.Tibial Artery, prox = 66.6 cm./sec. Ant. Tibial Artery, dist = 70.7 cm./sec. Ant Tibial Artery, mid = 24.8 cm./sec. Ant. Tibial Artery, distal = 15.4 cm./sec. Interpretation Summary 1. right leg severe SFa stenosis and triphasic flow through anterior tibial. 2. Left SFA occluded. Ordering Physician: Moose Singh Performed By: Suresh Arredondo RVT
== END ==
PROVIDERS: PCP Family Medicine; Referring Provider Surgery Vascular Surgery; Visit Provider Surgery Vascular Surgery
DX: I70.0 Atherosclerosis of aorta (principal); I77.1 Stricture of artery; I70.213 Atherosclerosis of native arteries of extremities with intermittent claudication, bilateral legs
CPT/HCPCS: 93922; 93925; 93978

== ENCOUNTER 2019-07-03 13:00 | Outpatient (RCR) | payer MEDICARE, SELFPAY ==
[2019-05-26 09:36] VITALS: BMI 26.2
[2019-06-05 11:17] VITALS: BMI 26.4
[2019-06-18 00:48] VITALS: BP 106/64; BP 140/72
--- NOTE | 2019-06-23 10:34 | CR.ITP_ITS ---
Diagnosis - General Information Admitting Diagnosis: S/P CABG Personal Learning Style:: Audio/Visual, Written Barriers to Learning: No Barriers Stage of change r/t lifestyle modifications:: Action Gave educational material for:: Treating Heart Disease, Emotions & Heart Disease, Stress Management & Relaxation, Sleep Disorders & Heart Disease, How The Heart Works, What it means to have Heart Disease, How Coronary Artery Disease is Diagnosed, Heart Procedures, What Heart Medications Do, Risk Factors & Modifications, Living an Active Life, Nutrition - Education/Goals Individual Counseling: Initial Assessment: Abnormal Cholesterol Levels, High Blood Pressure, Overweight/Obesity Cardiac Rehabilitation Goals: 1. Maintain the individual as the primary focus of care. 2. To improve the patient's quality of life. 3. Identification of cardiac risk factors and provide cardiac risk factor management. 4. Enhance the psychosocial status of the patient. 5. Reconditioning enough to allow the patient to resume customary activities. 6. Control symptoms of cardiac disease Personal Goals: Initial Assessment: Improve management of stress and emotions - 4, Improve energy level - 4, Get back to work, or to resume activities faster - 4, Improve knowledge of cardiac disease, Improve diet and eating habits (eat healthier) - 4, Control risk factors (learn risk factor modification) Scale for measuring improvement of personal goals: Enter appropriate number in Comments. 2 = Unchanged. 3 = Slightly Better. 4 = Moderate Improvement. 5 = Met my Goal - Diagnosis & Disease Process Outcomes/Goals: Pt IDs own risk factors & lifestyle modifications by Session 10, Verbalizes symptoms of angina & response by session 3., Pt independently manages Plan/Interventions: Assist Pt to ID & engage in lifestyle modification to reduce CVD risk, Instruct on individual risk factors, Review symptoms of angina & emergency actions, Review secondary diagnosis & identify educational needs. 30 day Reassessments:: Progressing 30 day Reassessments:: Progressing - Safety Referral to Physical Therapy: No Referral to [facility] Case Management: No Fall Risk Assessed:: Yes Assistive Devices:: None Exercise - 60-day Assessment - Visit Date of Eval: 06/23/19 Session #:: 22 - Physician Prescribed Exercise Modalities: Treadmill - No incline per Dr. Singh.Yogi NuStep Frequency: 3x/week for 12 weeks [36 sessions] Intensity: 60-80% of age predicted maximum heart rate reserve Current METSs:: 3.5 Target Heart Rate:: 98-128 Current RPE:: 12-13 Maximum Excercise HR:: 111 Resting Blood Pressure: 114/78 Maximum Exercise Blood Pressure: 162/82 EKG Type: SR/T-wave inversion to sinus tachycardia with rare PACs. - Outcomes & Goals Goals:: Verbalizes understanding of THR, RPE & goal METS by session 6, Documents in home exercise log/reports 30 min aerobic 5 day/wk by DC, Demonstrates accurate pulse taking by DC - Intervention & Plan Exercise Program Goals: Instruct on personal THR & RPE, Instruct on MET level & personal MET goal, Show patient to take own pulse /validate performance until accurate, Instruct on home exercise - 30-day Reassessments 30 day Reassessments:: Progressing - Physical Activity Home Exercise Physical Activity - Home Exercise: Safe Exercise, Warm-up, Self-monitoring, Cool-Down, Home Exercise > 30 min Daily, Sitting Time <3 hours/daily - Outcomes & Goals Outcomes/Goals: Demonstrates correct Warm-up/exercise Cool-Down (S3) if = 2.5 METs, Verbalizes symptoms of exercise intolerance by Session 3 (S3), Demonstrate safe equipment use (S3) & follows exercise prescrition (6) - Intervention & Plan Plan/Intervention: Instruct warm-up & cool-down if exercising at > 2 METs, Instruct on symptoms of exercise intolerance & actions to take, Instruct & monitor on saf - 30-day Reassessments 30 day Reassessments:: Progressing Nutrition - 60-Day Assessment - Program Goals Nutrition Program Goals: LDL <100 optimal. 100 - 129 Near optimal. 130 - 159 Borderline High. 160 - 189 High. Total Cholesterol <200 desirable. 200 - 239 Borderline High. >/= 240 High. HDL < 40 Low >/=60 High. Triglycerides <150 desirable. <199 optimal. VlDL 5 - 40. HgbA1C <7%. BMI <25 Patient has diagnosis of Hyperlipidemia (ICD E78)?: Yes - Visit Date of Assessment:: 06/23/19 Session #:: 22 - Cholesterol/Lipids Triglycerides (mg/dL): 298 - 02/21/2019 Total Cholesterol (mg/dL): 238 LDL Cholesterol (mg/dL): 133 HDL Cholesterol (mg/dL): 45 Lipid Medication: yes Determine presence & major risk factors that modify LDL goal: Hypertension or hy pertensive medication, Low HDL cholesterol <40 mg/dL*, Age men > 45 years; women >/= 55 years Outcomes/Goals: Pt IDs own risk factors & lifestyle modifications by Session 10, Verbalizes symptoms of angina & response by session 3., Pt independently manages Intervention/Plan: Instruct on personal lipid levels & lipid goals/NCEP guidelines, Instruct on cholesterol Referral to dietitian:: Yes - Medical Nutrition therapy 30-day Reassessments:: Progressing - Diabetes (Other Core Measures) Diabetes Type: Diagnosis Type II ICD-10 E11 Insulin dependent injection/pump?: Yes Non-Insulin Dependent?: Yes Do you monitor your blood sugar at home?: Yes Referral to Diabetic Clinic:: Yes Outcomes/Goals:: Able to state symptoms of, Able to state, Able to state Intervention/Plan:: Instruct on, Refer to, Instruct on 30-day Reassessments:: Progressing - Weight Mgt (Other Care) Not Applicable: No Height: 5 ft 3 in Weight:: 179 lb BMI: 31.6 Diagnosis Overweight/Obesity BMI> 30% ICD-10 E66: Yes Diagnosis High BMI/Morbid Obesity BMI> 35% ICD-10 Z68: No Outcomes/Goals: Pt sets, maintains & shows weight loss goal & trend during rehab Intervention/Plan: Instruct on ideal BMI & set weight loss goal w/patient, Assist pt to ID & incorporate diet changes for weight loss by S9, Refer to Structured Weight Loss program as appropriate, Encourage goal of using 250- 300dcal per session for weight loss 30 day Reassessments:: Progressing - Healthy Eating Habits Will attend diet classes:: Yes Outcomes/Goals:: Consume diet rich in vegs,fruits,whole grain/high fiber,fish,lean meat, Limit sat/trans fats,cholesterol & added salts & sugars Intervention/Plan:: Assess current eating habits 30-day Reassessments:: Progressing - Education Gave educational materials for:: Signs & symptoms of hypoglycemia, Signs & symptoms of hyperglycemia, Relate diabetes to coronary artery disease, Healthy eating Medical- 60-Day Assessment - Visit Date of Eval: 06/23/19 Session #:: 22 - Medication Compliance Preventative Medication(s):: Aspirin H/O mental health issues: depression, anxiety, or addiction?: No Doesn?t believe in the benefits of treatment?: No Believes medications are unnecessary or harmful?: No Has a concern about medication side effects?: No Expresses concern over the cost of medications?: No Outcomes/Goals: Verbalizes medications,desired effect & common side effects @ DC, Pt self-reports following medication regimen, Keeps card in wallet w/medications listed by DC Interventions/plans: Instruct on medication effects & side effects, Review medication list w/patient every two weeks, Instruct importance of taking meds as ordered & assist problem solving 30-day Reassessments:: Progressing - Tobacco Use Tobacco Use: Cigarettes How many cigarettes do you smoke per day?: 20 Do you use smokeless tobacco?: No Outcomes/Goals: Smoking cessation achieved or maintained by discharge, Identify aids/strategies for achieving smoking cessation by session 6 Interventions/plan: Instruct on effects of smoking & provide smoking cessation resource, Assist pt to set quit date & provide encouragement, Assist pt to develop strategies to achieve/maintain quit date, Assist pt w/nicotine replacement & medication for cessation success 30-day Reassessments:: Not Met - Hypertension Hypertension Diagnosis:: Hypertension ICD-10 I10 Resting Blood Pressure:: 114/78 [place] [employer] Hypertension Guidelines: [place] [employer] Hypertension Guidelines. Normal BP Less than 120/80. Elevated BP 120/80. Hypertension Stage 1: BP 130-139/80-89. Hypertesnion Stage 2: BP 140 or higher/90 or higher. Hypertension Crisis: BP higher than 180/120 Peak Exercise Blood Pressure:: 162/82 Outcomes/Goals: Able to verbalize/achieve optimal blood pressure <130/80, Incorporates diet changes & exercise for blood pressure control by DC Interventions/plan: Instruct on optimal blood pressure, hypertension & medications, Instruct on effects of sodium, alcohol, stress, exercise &hypertension 30 day Reassessments:: Progressing - Tobacco Cessation Referral Smoking Cessation Referral:: Yes Individual Education/Counseling:: Yes Education Schedule Given:: Yes Psychosocial - 60-Day Assess - VIsit Date of Eval: 06/23/19 Session #:: 22 Not Applicable: Yes History of previous Mental disease:: No - Target Goals Target Goals: Assess presence or absence of depression. Using a valid screening tool, maximizes coping skills. Positive support system - Psychosocial Test Tool Used:: [place] Treadwell QOL Cardiac, PHQ-9 Questionnaire phq-9 Severity: Severity. 1-4 Minimal Depression. 5-9 Mild Depression. 10-14 Moderate Depression. 15-19 Moderately Sever Depression. 20-27 Severe Depression. Rule: - Intervention/Plan: See List Interventions/Plan:: Assess stressors,coping strategies & signs of derpression on admission, Instruct/assist pt to develop coping & personal stress Mgt strategies, Instruct patient to recognize signs & symptoms of depression, Instruct patient to recog - 30-day Reassessments: 30 day Reassessments:: Progressing Patient Health Questionnaire 60-Day Re-eval Assessment 1. Little interest or pleasure in doing things: Several days 2. Feeling down, depressed, or hopeless: Not at all 3. Trouble falling or staying asleep, or sleeping too much: Not at all 4. Feeling tired or having little energy: Several days 5. Poor appetite or overeating: More than half the days 6. Feeling bad about yourself -- or that you are a failure or have let yourself or your family down: Several days 7. Trouble concentrating on things, such as reading the newspaper or watching television: Not at all 8. Moving or speaking so slowly that other people could have noticed. Or the opposite - being so fidgety or restless that you have been moving around a lot more than usual: Not at all 9. Thoughts that you would be better off , or of hurting yourself in some way: Not at all How difficult have these problems made it for you to do your work, take care of things at home, or get along with other people?: Somewhat difficult Total Score: 5 Self-Efficacy 60-Day Re-eval Assessment We would like to know how confident you are in doing certain activities. Please select your confidence level for:: Select your confidence level for the following using the scale 1-10 where 1 is not at all confident and 10 is totally confident. Your score is the average of all 6 responses. Fatigue: How confident are you that you can keep the fatigue caused by your disease from interfering with the things you want to do? Select Number: 5 Physical Discomfort or Pain: How confident are you that you can keep the physical discomfort or pain of your disease from interfering with the things you want to do? Select Number: 5 Emotional Distress: How confident are you that you can keep the emotional distress caused by your disease from interfering with the things you want to do? Select Number: 5 Other Symptoms or Health Problems: How confident are you that you can keep other symptoms or health problems from interfering with the things you want to do? Select Number: 6 Different Tasks and Activities: How confident are you that you can do the different tasks and activities needed to manage your health condition so as to reduce your need to see a doctor? Select Number: 7 Medication: How confident are you that you can do things other than just taking medication to reduce how much your illness affects your everyday life? Select Number: 5 Total Score:: 5
[2019-06-23 10:52] VITALS: BP 114/78; BP 162/82; BMI 31.6
== END 2019-07-18 23:59 ==
LOC: CR 13:00
PROVIDERS: Family Provider Family Medicine; PCP Family Medicine; Referring Provider Internal Medicine Cardiovascular Disease; Visit Provider Internal Medicine Cardiovascular Disease
DX: I25.10 Atherosclerotic heart disease of native coronary artery without angina pectoris (principal); Z95.1 Presence of aortocoronary bypass graft
CPT/HCPCS: 93798

== ENCOUNTER → 2019-10-03 08:44 | Outpatient (CLI) | payer MEDICARE, SELFPAY ==
[2019-06-23 10:52] VITALS: BMI 31.6
[2019-08-03 11:03] VITALS: BMI 26.4
[2019-10-03 09:26] LABS: Hematocrit 43.1 % (37-47); Hemoglobin 13.7 g/dL (12.0-15.0); Mean Corp Hgb Conc 31.8 g/dL (32-36); Mean Corpuscular Volume 94.5 fL (81-99); Mean Platelet Vol. 10.8 fl (6.2-12.0); Platelet Count 239 K/mm3 (150-450); RBC Distribution Width CV 13.3 % (11.6-14.6); RBC Distribution Width SD 45.4 fl (35.1-43.9); Red Blood Count 4.56 M/mm3 (4.2-5.4); White Blood Count 8.6 K/mm3 (4.4-11.0)
[2019-10-03 10:09] LABS: AST(SGOT) 29 U/L (15-37); Alanine Aminotransfer ALT/SGPT 31 U/L (13-56); Albumin, Serum 3.5 g/dL (3.2-5.0); Alkaline Phosphatase 63 U/L (45-117); Anion Gap 10 (5-15); BUN 33 mg/dL (7-18); BUN/Creat Ratio 22.8 RATIO (10-20); Bilirubin, Direct 0.13 mg/dL (0.00-0.30); Chloride 101 mmol/L (98-107); Cholesterol 139 mg/dL (200); Creatinine, Serum 1.45 mg/dL (0.55-1.02); EST Glomerular Filtration Rate 38 mL/min (>60); Est Glom Filt Rate - Afr Amer 46 mL/min (>60); Globulin 4.1 g/dL (2.2-4.2); Glucose 275 mg/dL (74-106); High Density Lipoprotein 41 mg/dL; Potassium 4.6 mmol/L (3.5-5.1); Protein, Total 7.6 g/dL (6.4-8.2); Sodium Level 136 mmol/L (136-145); T4 Total, Thyroxin 7.7 ug/dL (4.8-13.9); Triglycerides 245 mg/dL; Very Low Density Lipoprotein 49 mg/dL (5-40)
== END ==
PROVIDERS: PCP Family Medicine; Referring Provider Nurse Practitioner Family; Visit Provider Nurse Practitioner Family
DX: I10 Essential (primary) hypertension (principal); I25.10 Atherosclerotic heart disease of native coronary artery without angina pectoris; E11.9 Type 2 diabetes mellitus without complications; E78.5 Hyperlipidemia, unspecified; I73.9 Peripheral vascular disease, unspecified; R53.83 Other fatigue; Z95.1 Presence of aortocoronary bypass graft
CPT/HCPCS: 36415; 80048; 80061; 80076; 84436; 84443; 85027

== ENCOUNTER → 2019-11-24 08:12 | Outpatient (CLI) | payer MEDICARE, SELFPAY ==
[2019-11-14 08:38] VITALS: BMI 31.6
[2019-11-24 08:11] VITALS: BMI 26.4
--- NOTE | 2019-11-24 08:12 | RAD_ITS ---
STUDY: X-RAY - LEFT KNEE REASON FOR EXAM: Female, 69 years old. knee pain TECHNIQUE: 4 view(s) of the knee. COMPARISON: None. FINDINGS: Normal visualized distal femur. Normal visualized proximal tibia and fibula. Normal proximal tibiofibular articulation. Status post medial compartment arthroplasty. Normal lateral femorotibial compartment. Normal patellofemoral articulation. There is a soft tissue prominence in the suprapatellar region suggesting a small volume joint effusion. The soft tissue structures are unremarkable. RAD/Knee 4 or More Views IMPRESSION: Effusion, as described above. Electronically Signed: Raghav Arciniega MD at 7:20 EDT Tel , Service support ,
== END ==
PROVIDERS: PCP Family Medicine; Referring Provider Orthopaedic Surgery; Visit Provider Orthopaedic Surgery
DX: M25.562 Pain in left knee (principal); Z96.659 Presence of unspecified artificial knee joint
CPT/HCPCS: 73564

== ENCOUNTER → 2019-12-04 09:54 | Outpatient (CLI) | payer MEDICARE, SELFPAY ==
[2019-11-14 08:38] VITALS: BMI 31.6
[2019-11-24 08:11] VITALS: BMI 26.4
--- NOTE | 2019-12-04 09:56 | NM_ITS ---
CLINICAL: 69-year-old female with reported history of painful partial left knee arthroplasty operated approximately 10 years previous. LIMITED 99m Tc MDP THREE PHASE BONE SCINTIGRAPHY COMPARISON: Plain film radiograph report left knee 11/24/2019 FINDINGS: Following the intravenous administration of 26.0 mCi of 99m Tc MDP, three-phase bone acquisitions of the knee articulations reveal: 1. The flow and immediate static blood pool acquisitions demonstrate symmetric-normal arterial phase distribution of the radiopharmaceutical to the bilateral visualized lower extremities. There is venous hyperemia defined in the region of the medial compartment of the left knee to include the anatomic distributions of the femoral and tibial components of the left knee hemiarthroplasty. 2. Delayed images depict persistent relatively intense increased tracer uptake noted in the femoral and tibial components of the symptomatic left knee tip-prosthesis. 3. Facilitated uptake is noted in the patellofemoral compartments of both knees, medial tibial compartment of the right knee. 4. The remaining limited skeletal structures are scintigraphically unremarkable. NM/Bone Scan Three Phase IMPRESSION: 1. The increase in radiopharmaceutical concentration identified in the femoral-tibial components of the symptomatic left knee hemiarthroplasty is consistent with a high likelihood of loosening in the setting of operative intervention > 2 years prior to the current presentation. If an infectious etiology is a diagnostic consideration correlation with labeled leukocyte imaging is recommended. 2. Degenerative arthritis appears expressed in the patellofemoral compartments of the bilateral knees and medial tibial compartment of the right knee. Electronically Signed: Raghav Grider DO at 22:48 EDT Tel , Service support ,
== END ==
PROVIDERS: PCP Family Medicine; Referring Provider Orthopaedic Surgery; Visit Provider Orthopaedic Surgery
DX: Z96.659 Presence of unspecified artificial knee joint (principal)
CPT/HCPCS: 78315

== ENCOUNTER → 2019-12-06 09:24 | Outpatient (CLI) | payer MEDICARE, SELFPAY ==
[2019-11-14 08:38] VITALS: BMI 31.6
[2019-12-06 07:54] VITALS: BMI 26.4
[2019-12-06 10:18] LABS: Erythrocyte Sedimentation Rate 21 mm/hr (0-30)
[2019-12-06 10:20] LABS: Absolute Lymphocyte Count 1.86 X10^3/uL (0.83-4.51); Absolute Neutrophil Count 7.4 X10^3/uL (2.0-7.7); Basophil# 0.05 X10^3/uL; Basophil% 0.5 % (0-1); Eosinophil# 0.32 X10^3/uL; Eosinophils% 3.1 % (0-5); Hematocrit 44.6 % (37-47); Hemoglobin 14.4 g/dL (12.0-15.0); Lymphocyte # 1.86 X10^3/ul (4.0); Lymphocyte % 17.8 % (19-41); Mean Corp Hgb Conc 32.3 g/dL (32-36); Mean Corpuscular Hgb 30.1 pg (27.0-32.0); Mean Corpuscular Volume 93.3 fL (81-99); Mean Platelet Vol. 10.8 fl (6.2-12.0); Monocyte# 0.84 X10^3/uL; NRBC Flagged by Analyzer 0 % (0-5); Neutrophil # 7.35 X10^3/uL (2.7-7.7); Neutrophil % 70.1 % (47-70); Platelet Count 278 K/mm3 (150-450); RBC Distribution Width CV 12.1 % (11.6-14.6); RBC Distribution Width SD 42.1 fl (35.1-43.9); Red Blood Count 4.78 M/mm3 (4.2-5.4); White Blood Count 10.5 K/mm3 (4.4-11.0)
== END ==
PROVIDERS: PCP Family Medicine; Referring Provider Orthopaedic Surgery; Visit Provider Orthopaedic Surgery
DX: I25.10 Atherosclerotic heart disease of native coronary artery without angina pectoris (principal); M13.162 Monoarthritis, not elsewhere classified, left knee
CPT/HCPCS: 36415; 85025; 85652; 86140; 87070; 87205

== ENCOUNTER → 2020-01-29 10:44 | Outpatient (CLI) | payer MEDICARE, SELFPAY ==
[2019-11-14 08:38] VITALS: BMI 31.6
[2020-01-08 11:21] VITALS: BMI 33.9
--- NOTE | 2020-01-29 10:47 | ART_ITS ---
Reason For Study: Atherosclerosis w/ claudication Procedure A bilateral lower extremity continuous wave Doppler with analog waveform analysis and ankle brachial indexes. Left Segmental Pressures Left brachial= 158mmHg. Left posterior tibial artery = 83mmHg. Left dorsalis pedis artery = 83mmHg. Left digit = 55 mmHg. The left dorsalis pedis waveforms are monophasic. The left posterior tibial artery waveforms are monophasic. Right Segmental Pressures Right brachial= 161mmHg. Right posterior tibial artery = 122mmHg. Right dorsalis pedis artery = 146mmHg. Right digit = 75 mmHg. The right dorsalis pedis waveforms are biphasic. The right posterior tibial artery waveforms are monophasic. Indices The right ankle brachial index by the dorsalis pedis is 0.91. The right ankle brachial index by the posterior tibial artery is 0.76. The right digital-brachial index is 0.47. The left ankle brachial index by the dorsalis pedis is 0.52. The left ankle brachial index by the posterior tibial artery is 0.52. The left digital-brachial index is 0.34. Interpretation Summary Right leg mild occlussive disease with biphasic flow and ISIDRO 0.91. Left leg moderate disease with more monophasic flow and ISIDRO 0.52. DBI 0.47 and 0.34. Ordering Physician: Moose Singh Referring Physician: Marielos Perla Performed By: Precious Orozco RVT and Student
== END ==
PROVIDERS: PCP Family Medicine; Referring Provider Surgery Vascular Surgery; Visit Provider Surgery Vascular Surgery
DX: I70.213 Atherosclerosis of native arteries of extremities with intermittent claudication, bilateral legs (principal)
CPT/HCPCS: 93922

== ENCOUNTER 2020-06-20 16:33 | Outpatient (RCR) | payer MEDICARE, SELFPAY ==
[2019-11-14 08:38] VITALS: BMI 31.6
[2020-05-08 09:43] VITALS: BMI 34.7
[2020-06-20] MEDS: COVID-19 VACC, MRNA(PFIZER)/PF 30 MCG/0.3 ML SYRINGE IM (11:08)
[2020-07-11] MEDS: COVID-19 VACC, MRNA(PFIZER)/PF 30 MCG/0.3 ML SYRINGE IM (10:31)
== END 2020-06-20 23:59 ==
LOC: IMMUN 16:33
PROVIDERS: PCP Family Medicine; Visit Provider Family Medicine
DX: Z23 Encounter for immunization (principal)
CPT/HCPCS: 0001A; 0002A

== ENCOUNTER → 2020-07-02 10:05 | Outpatient (CLI) | payer MEDICARE, SELFPAY ==
[2019-11-14 08:38] VITALS: BMI 31.6
[2020-05-08 09:43] VITALS: BMI 34.7
[2020-07-02 12:39] LABS: Erythrocyte Sedimentation Rate 8 mm/hr (0-30)
[2020-07-02 12:48] LABS: Absolute Lymphocyte Count 1.74 X10^3/uL (0.83-4.51); Absolute Neutrophil Count 5.8 X10^3/uL (2.0-7.7); Basophil# 0.07 X10^3/uL; Basophil% 0.8 % (0-1); Eosinophil# 0.47 X10^3/uL; Eosinophils% 5.4 % (0-5); Hematocrit 46.5 % (37-47); Lymphocyte # 1.74 X10^3/ul (4.0); Lymphocyte % 19.9 % (19-41); Mean Corp Hgb Conc 32.3 g/dL (32-36); Mean Corpuscular Hgb 30.2 pg (27.0-32.0); Mean Corpuscular Volume 93.6 fL (81-99); Mean Platelet Vol. 11.4 fl (6.2-12.0); NRBC Flagged by Analyzer 0 % (0-5); Neutrophil # 5.75 X10^3/uL (2.7-7.7); Neutrophil % 65.6 % (47-70); Platelet Count 236 K/mm3 (150-450); Red Blood Count 4.97 M/mm3 (4.2-5.4); White Blood Count 8.8 K/mm3 (4.4-11.0)
[2020-07-02 13:33] LABS: ALB/GLOB Ratio 0.9 RATIO (0.9-2.4); AST(SGOT) 33 U/L (15-37); Alanine Aminotransfer ALT/SGPT 30 U/L (13-56); Albumin, Serum 3.7 g/dL (3.2-5.0); Alkaline Phosphatase 62 U/L (45-117); Anion Gap 6 (5-15); BUN 32 mg/dL (7-18); BUN/Creat Ratio 22.5 RATIO (10-20); Bilirubin, Direct 0.09 mg/dL (0.00-0.30); CRP 6.03 mg/L (0.0-3.0); Calcium,Total 9.1 mg/dL (8.5-10.1); Chloride 101 mmol/L (98-107); Cholesterol 154 mg/dL (200); Creatinine, Serum 1.42 mg/dL (0.55-1.02); EST Glomerular Filtration Rate 39 mL/min (>60); Est Glom Filt Rate - Afr Amer 47 mL/min (>60); Globulin 4.2 g/dL (2.2-4.2); Glucose 307 mg/dL (74-106); High Density Lipoprotein 44 mg/dL; Potassium 4.9 mmol/L (3.5-5.1); Protein, Total 7.9 g/dL (6.4-8.2); Sodium Level 133 mmol/L (136-145); Thyroid Stim Hormone (TSH) 1.03 uIU/mL (0.358-3.74); Triglycerides 359 mg/dL; Very Low Density Lipoprotein 72 mg/dL (5-40)
[2020-07-02 13:54] LABS: Microalbumin:Creatinine Ratio 136.5 mg/g CRE (<30 mg/g CRE)
== END ==
PROVIDERS: PCP Family Medicine; Referring Provider Nurse Practitioner Family; Visit Provider Nurse Practitioner Family
DX: E78.5 Hyperlipidemia, unspecified (principal); I25.10 Atherosclerotic heart disease of native coronary artery without angina pectoris; E11.9 Type 2 diabetes mellitus without complications
CPT/HCPCS: 36415; 80053; 80061; 82043; 82248; 82570; 84443; 85025; 85652; 86140

== ENCOUNTER 2020-07-09 14:35 | Emergency (ER) | payer MEDICARE, SELFPAY ==
[2019-11-14 08:38] VITALS: BMI 31.6
[2020-05-08 09:43] VITALS: BMI 34.7
[2020-07-09 14:36] VITALS: BP 190/92; PULSE 89; RESP 18; TEMP 36.1; O2SAT 98; BMI 34.7
--- NOTE | 2020-07-09 14:50 | RAD_ITS ---
STUDY: X-RAY - LEFT WRIST REASON FOR EXAM: Female, 70 years old. Pain. TECHNIQUE: 300 view(s) of the wrist were obtained. COMPARISON: None. FINDINGS: Mild spurring of the distal radius. There is cyst of the ulnar styloid. Normal radiocarpal articulation. Normal distal radioulnar articulation. Normal carpal bones. There is degenerative arthrosis of the carpal articulations. There is degenerative arthrosis of the carpometacarpal articulation of the thumb. Normal second through fifth carpometacarpal articulations. Normal visualized metacarpal bones. There is soft tissue swelling on the ulnar aspect. There is no demonstrated acute fracture. RAD/Wrist min 3 Views IMPRESSION: Arthritic change. Soft tissue swelling. Electronically Signed: Hosea Blackburn MD at 15:42 EDT , Service support ,
--- NOTE | 2020-07-09 14:50 | RAD_ITS ---
STUDY: X-RAY - LEFT SHOULDER REASON FOR EXAM: Female, 70 years old. Pain, fall TECHNIQUE: 4 view(s) of the shoulder. COMPARISON: None. FINDINGS: There is mild degenerative arthrosis of the glenohumeral articulation. There is degenerative arthrosis of the acromioclavicular joint without inferior osseous spur formation. Normal acromion. There is demineralization of the humerus and visualized osseous structures. The soft tissue structures are unremarkable. There is no demonstrated fracture. Normal visualized pulmonary apex. RAD/Shoulder min 2 Views IMPRESSION: Degenerative change. No fracture. Electronically Signed: Hosea Blackburn MD at 15:43 EDT , Service support ,
--- NOTE | 2020-07-09 14:54 | ED.DCSUM_ITS ---
- ER Visit Summary Date of Service: 07/09/20 Chief Complaint: [Fall] History of Present Illness: The patient is a 70 F [presents to the emergency department after sustaining a fall this afternoon approximately 2:20 PM. Patient states that she was going to her doctor's appointment and realize she had forgotten her mask in her vehicle and she got in a hurry and tripped over the curb injuring her left wrist and left shoulder and left chest. Patient denies striking her head or loss of consciousness. She is not anticoagulated. She denies any neck pain. She denies any dyspnea. She denies abdominal pain. She has been ambulatory and drove her self to the ER today. Patient unsure of her last tetanus. She is right-hand dominant.] Physical Examination: [HEENT-PERRLA, EOMI. Cranial nerves II through XII grossly intact. TMs clear. Mucous membranes moist. No adenopathy. Cardiovascular-regular rate and rhythm without murmur or ectopy. Chest wall- patient does have tenderness palpation over the left breast and left anterior chest wall that seems to reproduce her pain. There is no crepitus or subcu emphysema noted. Lungs-clear to auscultation, chest wall stable without crepitus or subcu emphysema Abdomen-normoactive bowel sounds, soft, nontender, no rebound or rigidity, no peritoneal signs. Extremities-intact ?4, normal range of motion, normal pulses. Left knee-patient has superficial abrasions to the knee without any bony tenderness on exam. She is a normal range of motion is painless. Left shoulder-no obvious deformity. She does have tenderness palpation over the proximal humerus and pain with range of motion. Left wrist-patient has some diffuse tenderness over the radial aspect of the wrist without obvious deformity noted. She is neurovascular intact distally with normal range of motion of all digits.] Test Results: [4 view x-rays of the left shoulder obtained interpreted by myself as no acute fractures or dislocations. Patient was noted to have some degenerative changes. X-rays 3 views of the left wrist obtained showed no fractures or dislocations as interpreted by myself. Patient also had 4 view x- ray of left ribs and chest which showed no evidence of rib fractures and no evidence of pneumothorax as interpreted by myself. Patient was noted to have prior thoracostomy/CABG wires in place.] Emergency Department Course and Treatment: [Patient was given a left wrist s plint and was ordered a sling. Patient received Adacel tetanus booster.] Treatment Plan: [Patient to follow-up with her primary care physician in 5 to 7 days.] Disposition: [Discharged home in stable condition] Impression: [Mechanical fall Chest contusion Abrasions-superficial Contusion/sprain left shoulder Left wrist sprain] This note was generated with [employer] dictation software. It may contain incorrect words, spelling, and punctuation that were not noted in review of the chart prior to signing ED Disposition - Plan for ED Patient: Referrals: Marielos Perla DO [Primary Care Provider] -
--- NOTE | 2020-07-09 15:10 | RAD_ITS ---
STUDY: X-RAY - UNILATERAL RIBS ( LEFT ) WITH CHEST REASON FOR EXAM: Female, 70 years old. Pain, fall TECHNIQUE - RIBS: 4 view(s) of the ribs. TECHNIQUE - CHEST: Single frontal view of the chest. COMPARISON: None. FINDINGS - RIBS: Normal visualized ribs without a demonstrated fracture. FINDINGS - CHEST: The lungs are clear and expanded. There is no demonstrated pleural abnormality. Sternal cerclage wires are present from a prior sternotomy. Normal mediastinum and bryan. Normal visualized pulmonary arteries. Normal visualized aortic arch and descending thoracic aorta. There are diffuse degenerative changes of the visualized thoracic spine. Normal visualized ribs, clavicles, and shoulders. There is no demonstrated abnormality of the visualized soft tissue structures of the upper abdomen. RAD/Ribs Uni Min 3V w/PA Chest IMPRESSION: RIBS: Normal x-ray examination of the ribs. CHEST: Degenerative changes, as described above. No demonstrated acute cardiopulmonary process. Electronically Signed: Hosea Blackburn MD at 15:46 EDT , Service support ,
--- NOTE | 2020-07-09 15:38 | ED.DEP ---
ED Disposition - Plan for ED Patient: Instructions: ED Mechanical Fall, ED Wrist Sprain, ED Shoulder Sprain, ED Chest Wall Contusion Referrals: Marielos Perla DO [Primary Care Provider] - 5-7 Days
[2020-07-09] MEDS: Diphth,Pertuss(Acell),Tet Vac 0.5 ML Vial IM (15:48)
== END 2020-07-09 16:06 | disposition home or self-care (01) ==
LOC: ED 15:36
PROVIDERS: Emergency Provider Emergency Medicine; PCP Family Medicine
DX: S43.402A Unspecified sprain of left shoulder joint, initial encounter (principal); S63.502A Unspecified sprain of left wrist, initial encounter; S20.219A Contusion of unspecified front wall of thorax, initial encounter; S80.212A Abrasion, left knee, initial encounter; W18.09XA Striking against other object with subsequent fall, initial encounter; Y93.9 Activity, unspecified; Y92.9 Unspecified place or not applicable; Y99.9 Unspecified external cause status; I25.10 Atherosclerotic heart disease of native coronary artery without angina pectoris; E11.9 Type 2 diabetes mellitus without complications; I10 Essential (primary) hypertension; I73.9 Peripheral vascular disease, unspecified; K21.9 Gastro-esophageal reflux disease without esophagitis; Z72.0 Tobacco use
CPT/HCPCS: 71101; 73030; 73110; 90715; 99282

== ENCOUNTER → 2021-01-15 10:09 | Outpatient (CLI) | payer MEDICARE, SELFPAY ==
[2019-11-14 08:38] VITALS: BMI 31.6
[2021-01-15 12:30] LABS: Absolute Lymphocyte Count 2.23 X10^3/uL (0.83-4.51); Absolute Neutrophil Count 6.2 X10^3/uL (2.0-7.7); Basophil# 0.07 X10^3/uL; Basophil% 0.7 % (0-1); Eosinophil# 0.48 X10^3/uL; Hematocrit 48.6 % (37-47); Hemoglobin 15.8 g/dL (12.0-15.0); Lymphocyte # 2.23 X10^3/ul (0.83-4.51); Lymphocyte % 23.1 % (19-41); Mean Corp Hgb Conc 32.5 g/dL (32-36); Mean Corpuscular Hgb 30.2 pg (27.0-32.0); Mean Corpuscular Volume 92.9 fL (81-99); Mean Platelet Vol. 11.3 fl (6.2-12.0); Monocyte# 0.67 X10^3/uL; Monocyte% 6.9 % (0-10); NRBC Flagged by Analyzer 0 % (0-5); Neutrophil # 6.18 X10^3/uL (2.7-7.7); Neutrophil % 63.9 % (47-70); Platelet Count 249 K/mm3 (150-450); RBC Distribution Width CV 12.9 % (11.6-14.6); RBC Distribution Width SD 44.2 fl (35.1-43.9); Red Blood Count 5.23 M/mm3 (4.2-5.4); White Blood Count 9.7 K/mm3 (4.4-11.0)
[2021-01-15 12:51] LABS: ALB/GLOB Ratio 0.8 RATIO (0.9-2.4); AST(SGOT) 33 U/L (15-37); Alanine Aminotransfer ALT/SGPT 32 U/L (13-56); Albumin, Serum 3.6 g/dL (3.2-5.0); Alkaline Phosphatase 59 U/L (45-117); Anion Gap 8 (5-15); BUN 31 mg/dL (7-18); Calcium,Total 9.4 mg/dL (8.5-10.1); Chloride 100 mmol/L (98-107); Creatinine, Serum 1.41 mg/dL (0.55-1.02); EST Glomerular Filtration Rate 39 mL/min (>60); Est Glom Filt Rate - Afr Amer 47 mL/min (>60); Globulin 4.4 g/dL (2.2-4.2); Glucose 157 mg/dL (74-106); Potassium 4.8 mmol/L (3.5-5.1); Sodium Level 136 mmol/L (136-145); Troponin-I HS 14 pg/mL (3.0-54.0)
== END ==
PROVIDERS: PCP Family Medicine; Referring Provider Family Medicine; Visit Provider Family Medicine
DX: I25.10 Atherosclerotic heart disease of native coronary artery without angina pectoris (principal); R06.00 Dyspnea, unspecified
CPT/HCPCS: 36415; 80053; 84484; 85025

== ENCOUNTER → 2021-02-12 06:18 | Outpatient (CLI) | payer MEDICARE, SELFPAY ==
[2019-11-14 08:38] VITALS: BMI 31.6
--- NOTE | 2021-02-12 06:20 | CDU_ITS ---
Reason For Study: dizziness Rt. Velocities/BP Lt. Velocities/BP Prox CCA 116.4/14.7 cm/sec. Prox CCA 107.3/17.3 cm/sec. Mid CCA 112.5/14.7 cm/sec. Mid CCA 93.0/13.4 cm/sec. Dist CCA 87.8/14.7 cm/sec. Dist CCA 95.6/14.7 cm/sec. Prox ICA 96.9/13.4 cm/sec. Prox ICA 98.6/18.8 cm/sec. Mid ICA 96.9/20.0 cm/sec. Mid ICA 94.9/12.6 cm/sec. Dist ICA 83.8/14.7 cm/sec. Dist ICA 90.0/24.9 cm/sec. Rt. ICA/CCA = .9. Lt. ICA/CCA = 1.1. Prox ECA 119.1/6.9 cm/sec. Prox ECA 112.0/13.3 cm/sec. Rt. Vert. 53.9/6.9 cm/sec. Lt. Vert. 87.6/15.1 cm/sec. Right Extracranial There is intimal thickening but no significant atherosclerotic plaque noted in the right common carotid artery. There is heterogeneous, irregular atherosclerotic plaque noted in the right internal carotid artery. The right internal carotid artery is not well visualized. There is intimal thickening but no significant atherosclerotic plaque noted in the right external carotid artery. The right external carotid artery is not well visualized. Antegrade flow is noted in the right vertebral artery. Left Extracranial There is intimal thickening but no significant atherosclerotic plaque noted in the left common carotid artery. There is homogeneous, smooth atherosclerotic plaque noted in the left internal carotid artery. There is intimal thickening but no significant atherosclerotic plaque noted in the left external carotid artery. Antegrade flow is noted in the left vertebral artery. Procedure Carotid Duplex 35368. This is a Carotid Duplex examination using B-mode, color flow and specral Doppler. The exam was diagnostic. Exam performed in department. VL/Carotid Duplex Ultrasound Interpretation Summary Irregular plaque at the proximal right internal carotid artery with a poorly vi sualized vessel though less than 50% stenosis based upon velocity evaluation Less than 50% stenosis right external carotid artery Homogeneous partially calcific smooth plaque at the origin of left internal car otid artery with less than 50% stenosis Less than 50% stenosis left external carotid artery Patent and antegrade vertebral arteries bilaterally Ordering Physician: Lobito Johnson Performed By: Suresh Arredondo RVSantos
--- NOTE | 2021-02-12 09:52 | STRESSREP ---
Stress Test Report Date: 02-12-2021 Procedure: Pharmacologic stress nuclear imaging study Indications: Chest pain; CAD; CABG Consent: Per the patient Procedure: The patient underwent pharmacologic (Regadenoson 0.4mg ) evaluation with a peak heart rate of 112 beats per minute (80%predicted maximal heart rate) and a peak blood pressure of 152/84 mmHg. The baseline ECG demonstrated sinus rhythm; nonspecific ST/T wave abnormality. The peak pharmacologic ECG demonstrated no obvious ECG changes. There were no cardiac dysrhythmias pretest, during pharmacologic infusion, or recovery. There was no complaint of chest discomfort during pharmacologic infusion or recovery. The examination was discontinued secondary to completion of protocol. Impression: 1. Pharmacologic (Regadenoson) evaluation 2. Peak pharmacologic ECG with continued nonspecific ST/T wave abnormality. 3. There were no cardiac dysrhythmias pretest, during pharmacologic infusion, or recovery. 4. Nuclear images pending Myocardial perfusion imaging study: Technique: The patient was injected with 11.3 millicuries of technetium 99m Cardiolite and subsequently rest SPECT Cardiolite nuclear imaging was obtained in the horizontal long, vertical long, and short axis views. The patient underwent pharmacologic (Regadenoson) evaluation with a peak heart rate of 112 beats per minute (80% percent predicted maximal heart rate) and a peak blood pressure of 152/84 mmHg. The patient was injected with 33.3 millicuries of technetium 99m Cardiolite and subsequently stress SPECT Cardiolite nuclear imaging was obtained in the horizontal long, vertical long, and short axis views. A gated Cardiolite study at peak stress was obtained. Interpretation: Rest and stress SPECT Cardiolite nuclear imaging status post realignment, normalization, and attenuation correction demonstrate relative uniform tracer uptake and myocardial perfusion appearing within normal limits. There is end systolic thickening and brightening. The gated Cardiolite study demonstrates myocardial thickening and inward wall motion. The reported LVEF is 49%. Impression: 1. Rest and stress SPECT Cardiolite nuclear imaging demonstrate relative uniform tracer uptake and myocardial perfusion appearing within normal limits. 2. The gated Cardiolite study reports an LVEF of 49%. This note was generated with [employer] software. It may contain incorrect words, spelling, and punctuation that were not noted in checking the note before signing.
== END ==
PROVIDERS: PCP Family Medicine; Referring Provider Nurse Practitioner Family; Visit Provider Nurse Practitioner Family
DX: R07.9 Chest pain, unspecified (principal); I65.22 Occlusion and stenosis of left carotid artery; I25.10 Atherosclerotic heart disease of native coronary artery without angina pectoris; E11.9 Type 2 diabetes mellitus without complications; I10 Essential (primary) hypertension; E78.5 Hyperlipidemia, unspecified; R42 Dizziness and giddiness; Z95.1 Presence of aortocoronary bypass graft
CPT/HCPCS: 78452; 93017; 93880; A9500; A4216; J2785

== ENCOUNTER → 2021-03-06 11:05 | Outpatient (CLI) | payer MEDICARE, SELFPAY ==
[2019-11-14 08:38] VITALS: BMI 31.6
--- NOTE | 2021-03-06 11:15 | RAD_ITS ---
STUDY: X-RAY CHEST REASON FOR EXAM: Female, 71 years old. Worsening shortness of breath TECHNIQUE: PA and lateral views of the chest. COMPARISON: None. FINDINGS: The lungs are clear and expanded. There is no demonstrated pleural abnormality. Sternal cerclage wires and vascular clips are present from a prior sternotomy and coronary artery bypass graft procedure (CABG). Normal mediastinum and bryan. Normal visualized pulmonary arteries. Normal visualized aortic arch and descending thoracic aorta. There are diffuse degenerative changes of the visualized thoracic spine. Normal visualized ribs, clavicles, and shoulders. There is no demonstrated abnormality of the visualized soft tissue structures of the upper abdomen. RAD/Chest PA and Lateral IMPRESSION: No acute pulmonary process Electronically Signed: Davey Stone MD at 16:54 EST , Service support ,
[2021-03-06 12:44] LABS: Anion Gap 5 (5-15); BNP,B-Type NATRIURETIC PEPTIDE 72.9 pg/mL (0-100); BUN 39 mg/dL (7-18); BUN/Creat Ratio 26.5 RATIO (10-20); Calcium,Total 10.2 mg/dL (8.5-10.1); Chloride 104 mmol/L (98-107); Creatinine, Serum 1.47 mg/dL (0.55-1.02); EST Glomerular Filtration Rate 37 mL/min (>60); Est Glom Filt Rate - Afr Amer 45 mL/min (>60); Glucose 231 mg/dL (74-106); Potassium 4.9 mmol/L (3.5-5.1); Sodium Level 135 mmol/L (136-145)
== END ==
PROVIDERS: PCP Family Medicine; Referring Provider Nurse Practitioner Family; Visit Provider Nurse Practitioner Family
DX: R06.00 Dyspnea, unspecified (principal); I25.10 Atherosclerotic heart disease of native coronary artery without angina pectoris; E11.9 Type 2 diabetes mellitus without complications; Z95.1 Presence of aortocoronary bypass graft
CPT/HCPCS: 36415; 71046; 80048; 83880

== ENCOUNTER → 2021-04-08 | Outpatient (CLI) | payer MEDICARE, SELFPAY ==
[2019-11-14 08:38] VITALS: BMI 31.6
== END | disposition home or self-care (01) ==
LOC: LABSPEC 13:45
PROVIDERS: PCP Family Medicine; Visit Provider Family Medicine
DX: Z20.828 Contact with and (suspected) exposure to other viral communicable diseases (principal)
CPT/HCPCS: 87633; 87635; U0005; U0003

== ENCOUNTER 2021-06-03 08:10 | Day surgery (SDC) | payer MEDICARE, SELFPAY ==
[2019-11-14 08:38] VITALS: BMI 31.6
--- NOTE | 2021-05-27 09:13 | RAD_ITS ---
STUDY: X-RAY CHEST REASON FOR EXAM: Female, 71 years old. Chest pain TECHNIQUE: PA and lateral views of the chest. COMPARISON: No prior studies available for comparison at this time. FINDINGS: The lungs are clear and expanded. There is no demonstrated pleural abnormality. Sternal cerclage wires and vascular clips are present from a prior sternotomy and coronary artery bypass graft procedure (CABG). Normal mediastinum and bryan. Normal visualized pulmonary arteries. Normal visualized aortic arch and descending thoracic aorta. There are diffuse degenerative changes of the visualized thoracic spine. Normal visualized ribs, clavicles, and shoulders. There is no demonstrated abnormality of the visualized soft tissue structures of the upper abdomen. RAD/Chest PA and Lateral IMPRESSION: No acute abnormality is seen. Electronically Signed: Demarcus Reese MD at 9:29 EST ,
[2021-05-27 09:18] LABS: Absolute Lymphocyte Count 2.21 X10^3/uL (0.83-4.51); Absolute Neutrophil Count 6.3 X10^3/uL (2.0-7.7); Basophil# 0.07 X10^3/uL; Basophil% 0.7 % (0-1); Eosinophil# 0.46 X10^3/uL; Eosinophils% 4.7 % (0-5); Hemoglobin 15.3 g/dL (12.0-15.0); Lymphocyte # 2.21 X10^3/ul (0.83-4.51); Lymphocyte % 22.4 % (19-41); Mean Corp Hgb Conc 31.9 g/dL (32-36); Mean Corpuscular Hgb 29.8 pg (27.0-32.0); Mean Corpuscular Volume 93.4 fL (81-99); Mean Platelet Vol. 10.7 fl (6.2-12.0); Monocyte# 0.74 X10^3/uL; Monocyte% 7.5 % (0-10); NRBC Flagged by Analyzer 0 % (0-5); Neutrophil # 6.33 X10^3/uL (2.7-7.7); Neutrophil % 64.3 % (47-70); Platelet Count 240 K/mm3 (150-450); RBC Distribution Width CV 13.1 % (11.6-14.6); RBC Distribution Width SD 44.8 fl (35.1-43.9); Red Blood Count 5.14 M/mm3 (4.2-5.4); White Blood Count 9.9 K/mm3 (4.4-11.0)
[2021-05-27 09:43] LABS: Anion Gap 9 (5-15); BUN 45 mg/dL (7-18); BUN/Creat Ratio 27.6 RATIO (10-20); Calcium,Total 9.1 mg/dL (8.5-10.1); Chloride 100 mmol/L (98-107); Creatinine, Serum 1.63 mg/dL (0.55-1.02); EST Glomerular Filtration Rate 33 mL/min (>60); Est Glom Filt Rate - Afr Amer 40 mL/min (>60); Glucose 285 mg/dL (74-106); Potassium 4.6 mmol/L (3.5-5.1); Sodium Level 135 mmol/L (136-145)
[2021-06-02 08:09] VITALS: BMI 36.0
--- NOTE | 2021-06-02 17:05 | HP.PCM_ITS ---
History and Physical Date of Admission: 06/03/21 [facility] [id number] [place], [place] [id number] OFFICE VISITDate of Service: 05/26/21 MR#:[id number]:[id number]: KINGSLEY GURROLA [facility] #:[id number]:1950 Provider:Dr. Gregorio Cheng, MDAge/Sex: 71/F [facility] HPI HPI History of Present Illness Surgical H&P: Yes Details: This is a 71-year-old white female who presents today for outpatient cardiovascular follow-up with history of underlying CAD status post CABG ([facility]: 02-27-2019: GIRALDO to the LAD, SVG to OM 2, and SVG to RCA/PDA), ischemic mediated cardiomyopathy, hyperlipidemia, hypertension, and peripheral arterial occlusive disease (especially lower extremities for which she follows with Dr. Singh of peripheral vascular surgery). The patient continues with concerns of chest discomfort. She states she will have left-sided chest heaviness/pressure that will then radiate to her back/left shoulder. Also at times she feels a knifelike sensation in her chest. She notes that being on isosorbide/Imdur therapy has helped but she continues with her discomfort. She notes this can occur approximately 3 times a week. She will have to stop and rest. She also notes that she feels short of breath and dyspneic with exertional activity. She denies orthopnea or PND or peripheral pitting edema. There is been no ongoing palpitation or rapid heart rate. There is been no near-syncope or syncope. She had an ECG in the office today. She was noted to be in sinus rhythm with no acute ECG changes. She has undergone previous noninvasive and invasive studies. Her study results are noted below. Intake Vital Signs 05/26/21 13:55 Height 5 ft 2 in Weight: 197 lb 9 oz BP 116/68 Blood Pressure Location Lt brachial Position Sitting Respiration 18 Pulse 76 Pulse Source Auscultation Intake Visit Reasons: 10 MO F/U Deputy K 9 Required: No Accompanied by: Self Allergies cefazolin Allergy (Verified 05/26/21 13:59) Shortness of breath codeine Allergy (Verified 05/26/21 13:59) Shortness of breath morphine Allergy (Verified 05/26/21 13:59) Other naloxone [Naloxone] Allergy (Verified 05/26/21 13:59) Shortness of breath pentazocine Allergy (Verified 05/26/21 13:59) Shortness of breath pentazocine lactate [From Talwin] Allergy (Verified 05/26/21 13:59) Shortness of breath atorvastatin Adverse Reaction (Severe, Verified 05/26/21 13:59) Severe myalgias acetaminophen [From Tylenol] Adverse Reaction (Verified 05/26/21 13:59) Nausea Medications aspirin 81 mg PO DAILY 12/15/13 [History Confirmed 05/26/21] escitalopram oxalate 10 mg tablet 10 mg PO DAILY 03/28/19 [History Confirmed 05/26/21] multivitamin 1 cap PO DAILY 03/28/19 [History Confirmed 05/26/21] glimepiride 4 mg tablet 8 mg PO QAM tablet 07/15/20 [History Confirmed 05/26/21] metoprolol tartrate 25 mg tablet 25 mg PO BID #180 tablet 07/29/20 [Rx Confirmed 05/26/21] potassium chloride 10 mEq tablet,extended release 20 meq PO DAILY #180 tab 12/09/20 [Rx Confirmed 05/26/21] insulin regular human 100 unit/mL injection solution 32 unit SC BID ml 01/16/21 [History Confirmed 05/26/21] furosemide 40 mg tablet 40 mg PO Q OTHER DAY #45 tablet 02/20/21 [Rx Confirmed 05/26/21] isosorbide mononitrate 30 mg tablet,extended release 24 hr 30 mg PO BID #60 tab 03/19/21 [Rx Confirmed 05/26/21] rosuvastatin 10 mg tablet See Rx Instructions .ROUTE .COMPLEX #90 tablet 05/08/21 [Rx Confirmed 05/26/21] nitroglycerin 0.4 mg sublingual tablet 0.4 mg SUBLINGUAL Q5-15M PRN #90 tab 05/26/21 [Rx Confirmed 05/26/21] [facility] Medical History Atherosclerosis of [place] coronary artery of [place] heart without angina pectoris Essential hypertension HLD (hyperlipidemia) Mechanical loosening of prosthetic knee PAD (peripheral artery disease) Type II diabetes mellitus Surgical History History of coronary artery bypass graft x 3 (~02/27/19) History of prosthetic unicompartmental arthroplasty of left knee Status post left heart catheterization (LHC) (~02/22/19) Family History Mother Heart disease Social History Smoking Status: Former smoker how long ago did patient quit smokin years ago alcohol intake: current alcohol intake frequency: holidays/special occasions only substance use type: does not use caffeine: Yes Type: coffee Number of servings: 2 ROS Const Const: Positive for fatigue (increased); Negative for weakness, frequent falls, excessive sweating, weight gain or weight loss Eyes Eyes: Negative for transient loss of vision, blurry vision or change in vision ENT ENT: Negative for dizziness or balance problems Cardio Chest Pain: Yes Character: other (heaviness ltside with sharp radiating pain into back) Onset: at rest and exercise Location: left chest Duration: minutes and brief Relieving: rest Palpitations: Yes (occasional) feels like its: fast Edema: None Muscle aches with walking: None Resp Respiratory: Positive for SOB with activity (slightly increased); Negative for SOB at rest GI GI: Negative vomiting or vomiting blood/hematemesis : Negative for hematuria Musc Musc: Negative for muscle aches/ myalgia, muscle weakness, joint pain or balance problems Skin Skin: Negative non-healing lesions or rash Neuro Neuro: Negative for dizziness, lightheadedness, orthostatic symptoms, frequent f alls, weakness or blurry vision Pravin Hematologic/Lymphatic: Negative for easy bleeding Endo Endo: Positive for fatigue (increased); Negative for excessive sweating Psych Psych: Negative for anxiety or depression Allergy Allergy/Immunology: Negative for hives and Negative for rash Cardiology Exam Const Appearance: cooperative, healthy appearing, comfortable and no acute distress Nutritional Appearance: well nourished and obese Orientation: alert, awake and oriented x3 Head Head: normal to inspection Ears: hearing grossly normal bilaterally Nose: external nose normal Face and Sinus: face symmetric Mouth: oral mucosae normal Eyes General: appearance normal, both eyes and all related structures Eyelids: eyelids normal EOM: EOM intact bilaterally Neck Neck: normal visual inspection and no JVD Carotids: normal carotid upstroke Chest Chest inspection: normal inspection of the chest, symmetric chest movement and normal respiratory effort; Negative cough Auscultation: Bilateral: Diminished Lung Sounds and Inspiratory Wheezes Cardio Rate: regular rate Rhythm: regular rhythm Heart sounds: S1 normal and S2 normal; Negative rub, gallop or murmur GI GI: normal to inspection and obese Neuro General: patient alert, patient awake, patient oriented x3 and CN's II-XI intact bilaterally Skin Skin: no rashes or lesions noted Extremities Pulses: Normal: Right Posterior Tibial Pulse, Left Posterior Tibial Pulse, Right Radial Pulse and Left Radial Pulse Lower Extremity Edema: None: Bilateral Psych Psychological: normal affect Supplemental Info Supplemental Information Echocardiogram from 04/18/2019: Interpretation Summary The study was technically difficult. Contrast injection was performed. Mild segmental systolic dysfunction (see wall motion). The estimated ejection fraction is 50 %. There is mild mitral annular calcification. Extension of the mitral annular calcification onto the base of the posterior mitral valve leaflet. The mitral valve chordae are thickened and/or calcified. Mild (1+) eccentric mitral valve insufficiency. Mild tricuspid valve insufficiency. Right ventricular systolic pressure estimated to be 23 mmHg. No evidence for diastolic dysfunction. Stress Test Report Date: 02-12-2021 Procedure: Pharmacologic stress nuclear imaging study Indications: Chest pain; CAD; CABG Consent: Per the patient Procedure: The patient underwent pharmacologic (Regadenoson 0.4mg ) evaluation with a peak heart rate of 112 beats per minute (80%predicted maximal heart rate) and a peak blood pressure of 152/84 mmHg. The baseline ECG demonstrated sinus rhythm; nonspecific ST/T wave abnormality. The peak pharmacologic ECG demonstrated no obvious ECG changes. There were no cardiac dysrhythmias pretest, during pharmacologic infusion, or recovery. There was no complaint of chest discomfort during pharmacologic infusion or recovery. The examination was discontinued secondary to completion of protocol. Impression: 1. Pharmacologic (Regadenoson) evaluation 2. Peak pharmacologic ECG with continued nonspecific ST/T wave abnormality. 3. There were no cardiac dysrhythmias pretest, during pharmacologic infusion, or recovery. 4. Nuclear images pending Myocardial perfusion imaging study: Technique: The patient was injected with 11.3 millicuries of technetium 99m Cardiolite and subsequently rest SPECT Cardiolite nuclear imaging was obtained in the horizontal long, vertical long, and short axis views. The patient underwent pharmacologic (Regadenoson) evaluation with a peak heart rate of 112 beats per minute (80% percent predicted maximal heart rate) and a peak blood pressure of 152/84 mmHg. The patient was injected with 33.3 millicuries of technetium 99m Cardiolite and subsequently stress SPECT Cardiolite nuclear imaging was obtained in the horizontal long, vertical long, and short axis views. A gated Cardiolite study at peak stress was obtained. Interpretation: Rest and stress SPECT Cardiolite nuclear imaging status post realignment, normalization, and attenuation correction demonstrate relative uniform tracer uptake and myocardial perfusion appearing within normal limits. There is end systolic thickening and brightening. The gated Cardiolite study demonstrates myocardial thickening and inward wall motion. The reported LVEF is 49%. Impression: 1. Rest and stress SPECT Cardiolite nuclear imaging demonstrate relative uniform tracer uptake and myocardial perfusion appearing within normal limits. 2. The gated Cardiolite study reports an LVEF of 49%. Heart catheterization 02/22/2019: CONCLUSIONS Elevated Left Ventricular End Diastolic Pressure (mild) Segmented LV systolic dysfunction- Mild LVEF: by LV gram 40 % [facility] Multivessel CAD RECOMMENDATIONS Risk factor modification Medical therapy Surgery consult for coronary revascularization CORONARY ANGIOGRAPHY DOMINANCE: Right Dominant LEFT HEART ASSESSMENT Left Ventricular Ejection Fraction: by LV Gram 40 % Anterior Hypokinesis. Apical Hypokinesis Elevated Left Ventricular End Diastolic Pressure LVEDP: 14 mmHg LEFT MAIN: Catheter engagement: arterial wave form: ventricularization, proximal: 50 % Stenosis LEFT ANTERIOR DESCENDING ARTERY: OSTIAL LAD: 90 % Stenosis PROX LAD: 85 % serial Stenosis MID LAD: Mild luminal irregularities, 25 - 50 % Stenosis DIAGONAL 1: Proximal - long: diffuse: 90 % Stenosis CIRCUMFLEX ARTERY: PROX CIRC: hazy: 75 % Stenosis MID CIRC: Mild luminal irregularities RIGHT CORONARY ARTERY: Mild luminal irregularities MID RCA: 50 % Stenosis RT PDA: Ostial - 85 % Stenosis AORTIC ROOT: Angiographically normal CT surgery: 02-27-19: [facility]: GIRALDO to the LAD, SVG to the OM, SVG to the PDA Carotid duplex ultrasound from 2021-02-12: Interpretation Summary Irregular plaque at the proximal right internal carotid artery with a poorly visualized vessel though less than 50% stenosis based upon velocity evaluation Less than 50% stenosis right external carotid artery Homogeneous partially calcific smooth plaque at the origin of left internal carotid artery with less than 50% stenosis Less than 50% stenosis left external carotid artery Patent and antegrade vertebral arteries bilaterally Abdominal aorta ultrasound: 06-20-2019: Negative for abdominal aortic aneurysm. Extremity arterial study: 05-16-2019 Interpretation Summary Moderately severe right lower extremity arterial occlusive disease. Biphasic right posterior tibial and dorsalis pedis Doppler waveforms Abnormal right digital brachial indices Severe or multi segmental disease left lower extremity. Monophasic left posterior tibial and dorsalis pedis Doppler waveforms Significantly abnormal left digital brachial indices Vascular Study: 06/21/2019 Interpretation Summary 1. right leg severe SFa stenosis and triphasic flow through anterior tibial. 2. Left SFA occluded. Ankle-brachial index: 01-29-2020 Interpretation Summary Right leg mild occlussive disease with biphasic flow and ISIDRO 0.91. Left leg moderate disease with more monophasic flow and ISIDRO 0.52. DBI 0.47 and 0.34. Labs: LDL Cholesterol 38 mg/dL (0-130) HDL Cholesterol 44 mg/dL (40-) Triglycerides 359 mg/dL (-199) H VLDL Cholesterol 72 mg/dL (5-40) H Diagnostics: Electrocardiogram Echocardiogram Stress Test NM Stress Test Cardiac Catheterization Abdomen US Chest X-Ray Pulmonary: No Data to Display Assessment and Plan Assessment and Plan (1) Atherosclerosis of [place] coronary artery of [place] heart without angina pectoris: Status: Chronic Comment: CABG x3 with GIRALDO to LAD, SVG to OM 2, and SVG to PDA of RCA on 02/27/[address] Taylor at [facility]; Orders: Orders: 12 Lead EKG performed by BMS Today Left Heart Cath w/Grafts Today Basic Metabolic Profile (BMP) Today Partial Thromboplast Time Today Prothrombin Time w/INR Today Echo Complete Today CBC W/Diff, Automated Today Chest PA and Lateral Today Plan - Dr. Gregorio Cheng MD: She does have a history of CAD. She has undergone CABG. She continues with symptoms that are concerning for angina pectoris. At the present time since she has been on multiple medications, has undergone noninvasive studies, and continues with her symptoms, it was felt reasonable that she be considered for repeat diagnostic cardiac catheterization to look for progression of disease including graft vessel disease that may require not only medical therapy but percutaneous intervention. Based upon her history of CABG and her of her history of peripheral arterial occlusive disease especially in the lower extremities this procedure may have to be attempted via a left radial artery approach. The above was discussed with her including the procedure and risks. She was agreeable to this approach. (2) History of coronary artery bypass graft x 3: Status: Acute Comment: CABG x3 with GIRALDO to LAD, SVG to OM 2, and SVG to PDA of RCA on 02/27/[address] Taylor at [facility]; Orders: Orders: 12 Lead EKG performed by BMS Today Left Heart Cath w/Grafts Today Basic Metabolic Profile (BMP) Today Partial Thromboplast Time Today Prothrombin Time w/INR Today Echo Complete Today CBC W/Diff, Automated Today Chest PA and Lateral Today Plan - Dr. Gregorio Cheng MD: As noted above, she has undergone CABG. She continues with symptoms concerning for angina pectoris. She will continue medical therapy and further evaluation as described. (3) Chest pain: Status: Acute Orders: Orders: Left Heart Cath w/Grafts Today Basic Metabolic Profile (BMP) Today Partial Thromboplast Time Today Prothrombin Time w/INR Today Echo Complete Today CBC W/Diff, Automated Today Chest PA and Lateral Today Plan - Dr. Gregorio Cheng MD: She has chest pain which appears to be compatible with angina pectoris as well as her shortness of breath and dyspnea on exertion being compatible with angina pectoris. She will continue medical management and follow-up. (4) HLD (hyperlipidemia): Status: Chronic Qualifiers: Hyperlipidemia type: unspecified Qualified Code(s): E78.5 - Hyperlipidemia, unspecified Orders: Orders: Basic Metabolic Profile (BMP) Today Partial Thromboplast Time Today Prothrombin Time w/INR Today Echo Complete Today CBC W/Diff, Automated Today Chest PA and Lateral Today Plan - Dr. Gregorio Cheng MD: She will continue risk factor evaluation and care/medical therapy. (5) Essential hypertension: Status: Acute Orders: Orders: Basic Metabolic Profile (BMP) Today Partial Thromboplast Time Today Prothrombin Time w/INR Today Echo Complete Today CBC W/Diff, Automated Today Chest PA and Lateral Today Plan - Dr. Gregorio Cheng MD: Her blood pressures can be followed with adjustment of medications as deemed accordingly. (6) PAD (peripheral artery disease): Status: Chronic Comment: Right lower extremity arterial occlusive disease consistent with right superficial femoral artery 01/09/2017; Orders: Orders: Basic Metabolic Profile (BMP) Today Partial Thromboplast Time Today Prothrombin Time w/INR Today Echo Complete Today CBC W/Diff, Automated Today Chest PA and Lateral Today Plan - Dr. Gregorio Cheng MD: She does have a history of PAD for which she follows with Dr. Singh peripheral vascular surgery. Her peripheral vascular reports involving her lower extremity vasculature is noted. This may be challenging to perform a cardiac catheterization via the lower extremity approach. Thus an attempt will be made from the left upper ex tremity approach. This was discussed with the patient. Plan Details Other Medications: New: nitroglycerin do not exceed 3 doses per episode 0.4 mg sublingual Q5-15M PRN 90 tabs 6RF chest pain Additional Comments: Thank you for allowing me to participate in the care of your patient. Please don't hesitate to call if any issues arise. This note was generated using a voice recognition system and there may be incorrect words, spelling or punctuation that were not noted when reviewing the office note prior to saving. Follow Up: 3 Months (PFM ) COVID (Procedure Consent) Procedure Criteria Procedure Criteria: Yes Elective The surgeon/proceduralist and patient have discussed in detail the risk of exposure to and/or potential harm posed by the COVID-19 virus with having a surgery/procedure at this time versus the risk of delaying the surgery/procedure. It is not possible to know either the risk of delaying the surgery or procedure or chance of getting an infection with perfect accuracy, but a joint decision was made between the patient and the surgeon/proceduralist to proceed at this time with the scheduled surgery/procedure as indicated on the consent form. Coding Level of Care Code Off vis,est,level 5 Diagnoses Atherosclerosis of [place] coronary artery of [place] heart without angina pectoris I25.10 History of coronary artery bypass graft x 3 Z95.1 Chest pain R07.9 HLD (hyperlipidemia) E78.5 Hyperlipidemia type: unspecified Essential hypertension I10 PAD (peripheral artery disease) I73.9 Coding Level of Care Code Off vis,est,level 5 Diagnoses Atherosclerosis of [place] coronary artery of [place] heart without angina pectoris I25.10 History of coronary artery bypass graft x 3 Z95.1 Chest pain R07.9 HLD (hyperlipidemia) E78.5 Hyperlipidemia type: unspecified Essential hypertension I10 PAD (peripheral artery disease) I73.9 05/26/21 1447<Electronically signed by Gregorio Cheng MD>Date Gregorio Benjamin Signature:Date (if applicable) CC: Dr. Marielos Perla, DO ~ Assessment & Plan Addt'l Comments I have re-examined the patient. There are no clinical changes since date of exam
--- NOTE | 2021-06-03 15:53 | CL.D_ITS ---
Patient Name: KINGSLEY GURROLA Study Date: 06/03/2021 Performing: Gregorio Cheng MD Ht: 62 inches 157 cm : 1950 Wt: 196.5 lbs 89 kg Age: 71 Gender: female BSA: 1.89 PROCEDURE(S) PERFORMED DC03-(43814)LHC/COR/LV/CABG DC11-([id number])AO ROOT ANGIO WITH HEART CATH CLINICAL PROFILE AND INDICATIONS Indications: Worsening Angina, Suspected CAD Heart Failure: None Stress/Imaging Date: 02/12/2022tress Test with SPECT MPI: Negative Angina Classification Anginal Classification w/in 2 Weeks: CCS III CAD Presentations: Other: worsening angina CONCLUSIONS Elevated Left Ventricular End Diastolic Pressure Segmented LV systolic dysfunction- Mild LVEF: by LV gram 50 % [place] Multivessel CAD GIRALDO to LAD: patent SVG to OM2: occluded SVG to RPDA: patent Left to Left Collateral Flow RECOMMENDATIONS Risk factor modification Medical therapy DESCRIPTION OF PROCEDURE The patient arrived to the procedure lab. The risks and benefits of the procedure as well as a full d escription of our services here and current unavailability of surgical backup were fully explained to the patient and/or their significant other prior to the catheterization. The Timeout was completed, verifying the correct patient and procedure. The patient's procedural site was prepped and draped in the usual fashion. Local anesthetic was given subcutaneously to left radial region with Lidocaine 2%. Using a modified Seldinger technique, arterial access was obtained via the left radial artery, a 6Fr sheath was inserted. Left Coronary Artery selective angiography was performed in multiple views usi ng a 5 Fr. JL3.5 catheter. Saphenous Vein graft to the RPDA selective angiography was performed in mu ltiple views using a 5 Fr. JR 4 catheter. Left Ventriculography was performed in OCONNOR projection using a 5 Fr. Pigtail catheter. LV to AO pullback pressures were then recorded. Left internal mammary artery graft to the LAD selective angiography was performed in multiple views using a 5 Fr. I M catheter.The arterial sheath was pulled and a TR Band was applied for hemostasis-14 cc air CORONARY ANGIOGRAPHY DOMINANCE: Right Dominant LEFT HEART ASSESSMENT Left Ventricular Ejection Fraction: by LV Gram 50 % Inferior Mid Hypokinesis Elevated Left Ventricular End Diastolic Pressure LVEDP: 25 mmHg LEFT MAIN: Mild luminal irregularities LEFT ANTERIOR DESCENDING ARTERY: PROX LAD: Mild calcification, long: diffuse: 90 % Stenosis DIAGONAL 1: Proximal - small caliber vessel: long: diffuse: 90 % Stenosis CIRCUMFLEX ARTERY: PROX CIRC: long: diffuse: 25 % Stenosis MID CIRC: Mild luminal irregularities OM 2: Distal - is occluded and fills partially from left to left collateral flow RIGHT CORONARY ARTERY: Unable to be selectively engaged and injection despite attempts with multiple coronary catheters GRAFTS: GIRALDO graft to the Mid LAD is patent with no angiographically significant disease distal to the graft attachment Saphenous Vein graft to the 2nd OM is totally occluded Saphenous Vein graft to the RPDA is patent with no angiographically significant disease distal to the graft attachment COLLATERAL FLOW: Collateral flow from Left to Left AORTIC ROOT: Angiographically normal COMPLICATIONS No Complications PROCEDURE MEDICATIONS Versed 1 mg IV Fentanyl 50 mcg IV Oxygen: 2 L/min via nasal cannula Heparin given IA 06/03/2021 11:30:25 Verapamil 2.5mg, Ntg 100mcgs, 3000 units of Heparin given IA 06/03/2021 11:30:25 SUMMARY OF HEMODYNAMIC DATA Time AIR REST ECG 08:24:24 AO 152/64 (96) SA 11:42:02 LV 164/-4, 0 12:09:08 LV 177/-9, 25 12:09:17 LV 165/-9, 23 12:10:26 LVp 177/-10, 32 12:10:35 AOp 165/67 (106) 12:10:41 AO 155/75 (107) 12:28:35 ECG 13:25:27 Signed By Gregorio Cheng MD On 06/03/2021 3:52:40 PM Gregorio Cheng MD
== END 2021-06-03 23:59 | disposition home or self-care (01) ==
LOC: CLSP 08:12
PROVIDERS: PCP Family Medicine; Referring Provider Internal Medicine Cardiovascular Disease; Visit Provider Internal Medicine Cardiovascular Disease
DX: I25.119 Atherosclerotic heart disease of native coronary artery with unspecified angina pectoris (principal); E11.51 Type 2 diabetes mellitus with diabetic peripheral angiopathy without gangrene; Z79.4 Long term (current) use of insulin; I25.5 Ischemic cardiomyopathy; Z87.891 Personal history of nicotine dependence; R00.2 Palpitations; I10 Essential (primary) hypertension; E78.5 Hyperlipidemia, unspecified; Z95.1 Presence of aortocoronary bypass graft
CPT/HCPCS: 36415; 71046; 80048; 85025; 85610; 85730; 93459; 93567; 99152; 99153; C1894; J7040; Q9967; C1769

== ENCOUNTER 2021-06-11 13:39 | Outpatient (CLI) | payer MEDICARE, SELFPAY ==
[2019-11-14 08:38] VITALS: BMI 31.6
--- NOTE | 2021-06-11 13:51 | ECHOCS_ITS ---
Reason For Study: s/p CABG Procedure This was a 2D Doppler, Color Flow transthoracic echocardiogram. The study was technically difficult. Contrast injection was performed. Exam performed in department. Left Ventricle Based upon the 2D echocardiographic and contrast enhanced images obtained there appears to be grossly normal left ventricular size, wall motion, and systolic function. The estimated ejection fraction is 55 %. Diastolic function is indeterminate. Right Ventricle Normal RV size. Normal systolic function. Atria Normal left atrium. Normal right atrium. No doppler evidence for ASD. Mitral Valve There is mild mitral annular calcification. Extension the mitral annular calcification on the base of the posterior mitral leaflet. Mild (1+) mitral valve insufficiency. Tricuspid Valve Normal tricuspid valve. Trivial tricuspid valve insufficiency. Right ventricular systolic pressure estimated to be 25 mmHg. Aortic Valve Trisinus/trileaflet aortic valve. Normal aortic valve. Mild (1+) aortic valve insufficiency. Pulmonic Valve The pulmonic valve is not well visualized. Great Vessels Normal sized aortic root. Pericardium/Pleural No pericardial effusion. Medication Diluted definity 2ml given slow IV push to enhance endocardial definition. MMode/2D Measurements & Calculations LVIDd: 4.7 cm IVSd: 1.1 cm Ao root diam: 3.2 cm LVIDs: 3.1 cm LVPWd: 1.2 cm RVDd: 2.8 cm FS: 32.7 % LAV(MOD-bp): 42.0 ml LA A4 area: 15.2 cm2 LA dimension(2D): 4.3 cm LAV(MOD-bp) Indexed: 22.3 ml/m2 LAV(MOD-sp2): 47.9 ml LAV(MOD-sp4): 37.0 ml RA A4 area: 8.9 cm2 Doppler Measurements & Calculations MV E max wild: 67.6 cm/sec Lat Peak E' Wild: 6.5 cm/sec Med Peak E' Wild: 4.7 cm/sec MV A max wild: 97.3 cm/sec E/E' lat: 10.5 E/E' med: 14.3 MV E/A: 0.69 Ao V2 max: 144.3 cm/sec LV V1 max: 113.6 cm/sec PA V2 max: 113.9 cm/sec Ao max P.3 mmHg LV V1 max P.2 mmHg Ao V2 mean: 103.3 cm/sec Ao mean P.6 mmHg Ao V2 VTI: 25.8 cm TR max wild: 232.4 cm/sec TR max P.6 mmHg ECHO/Echo Complete W/ Contrast Interpretation Summary The study was technically difficult. Contrast injection was performed. Based upon the 2D echocardiographic and contrast enhanced images obtained there appears to be grossly normal left ventricular size, wall motion, and systolic function. The estimated ejection fraction is 55 %. There is mild mitral annular calcification. Extension the mitral annular calcification on the base of the posterior mitral leaflet. Mild (1+) mitral valve insufficiency. Trivial tricuspid valve insufficiency. Mild (1+) aortic valve insufficiency. Right ventricular systolic pressure estimated to be 25 mmHg. Diastolic function is indeterminate. Ordering Physician: Gregorio Cheng Referring Physician: Marielos Perla Performed By: Rand Johnson, MAKENNA, RVT
== END 2021-06-11 23:59 | disposition home or self-care (01) ==
LOC: CVS 13:40
PROVIDERS: PCP Family Medicine; Referring Provider Internal Medicine Cardiovascular Disease; Visit Provider Internal Medicine Cardiovascular Disease
DX: R07.9 Chest pain, unspecified (principal); I73.9 Peripheral vascular disease, unspecified; I25.10 Atherosclerotic heart disease of native coronary artery without angina pectoris; E78.5 Hyperlipidemia, unspecified; I10 Essential (primary) hypertension; Z95.1 Presence of aortocoronary bypass graft
CPT/HCPCS: 93306; Q9957; A4216; C8929

== ENCOUNTER 2021-06-19 13:37 | Outpatient (CLI) | payer MEDICARE, SELFPAY ==
[2019-11-14 08:38] VITALS: BMI 31.6
--- NOTE | 2021-06-19 13:47 | ART_ITS ---
Reason For Study: Atherosclerosis Procedure A bilateral lower extremity continuous wave Doppler with analog waveform analysis and ankle brachial indexes. Left Segmental Pressures Left brachial= 154mmHg. Left posterior tibial artery = 96mmHg. Left dorsalis pedis artery = 84mmHg. Left digit = 58 mmHg. The left dorsalis pedis waveforms are monophasic. The left posterior tibial artery waveforms are monophasic. Right Segmental Pressures Right brachial= 145mmHg. Right posterior tibial artery = 116mmHg. Right dorsalis pedis artery = 124mmHg. Right digit = 71 mmHg. The right dorsalis pedis waveforms are biphasic. The right posterior tibial artery waveforms are biphasic. Indices The right ankle brachial index by the dorsalis pedis is 0.81. The right ankle brachial index by the posterior tibial artery is 0.75. The right digital-brachial index is 0.46. The left ankle brachial index by the dorsalis pedis is 0.55. The left ankle brachial index by the posterior tibial artery is 0.62. The left digital-brachial index is 0.38. VL/Ankle Brachial Index Interpretation Summary Right lower extremity biphasic flow and mild occlusive disease with an ISIDRO 0.81 . Left lower extremity with moderate occlusive disease and monophasic flow and an ISIDRO 0.62. Digit brachial index of 0.46 and 0.38. Ordering Physician: Moose Singh Referring Physician: Marielos Perla Performed By: Precious Orozco RVT
== END 2021-06-19 23:59 | disposition home or self-care (01) ==
LOC: CVS 13:38
PROVIDERS: PCP Family Medicine; Referring Provider Surgery Vascular Surgery; Visit Provider Surgery Vascular Surgery
DX: I70.213 Atherosclerosis of native arteries of extremities with intermittent claudication, bilateral legs (principal); E11.51 Type 2 diabetes mellitus with diabetic peripheral angiopathy without gangrene; F32.9 Major depressive disorder, single episode, unspecified; E78.70 Disorder of bile acid and cholesterol metabolism, unspecified; I11.9 Hypertensive heart disease without heart failure
CPT/HCPCS: 93922

== ENCOUNTER → 2021-09-29 | Outpatient (CLI) | payer MEDICARE, SELFPAY ==
[2019-11-14 08:38] VITALS: BMI 31.6
[2021-09-29 09:11] LABS: AST(SGOT) 20 U/L (15-37); Alanine Aminotransfer ALT/SGPT 22 U/L (13-56); Albumin, Serum 3.4 g/dL (3.2-5.0); Alkaline Phosphatase 79 U/L (45-117); Bilirubin, Direct 0.07 mg/dL (0.00-0.30); Cholesterol 151 mg/dL (200); Globulin 4.2 g/dL (2.2-4.2); High Density Lipoprotein 47 mg/dL; Protein, Total 7.6 g/dL (6.4-8.2); Triglycerides 233 mg/dL; Very Low Density Lipoprotein 47 mg/dL (5-40)
== END | disposition home or self-care (01) ==
LOC: LAB 08:24
PROVIDERS: PCP Family Medicine; Referring Provider Nurse Practitioner Family; Visit Provider Nurse Practitioner Family
DX: E78.5 Hyperlipidemia, unspecified (principal)
CPT/HCPCS: 36415; 80061; 80076

== ENCOUNTER → 2022-02-25 | Outpatient (CLI) | payer MEDICARE, SELFPAY ==
[2019-11-14 08:38] VITALS: BMI 31.6
[2022-02-25 11:00] LABS: AST(SGOT) 18 U/L (15-37); Alanine Aminotransfer ALT/SGPT 26 U/L (13-56); Albumin, Serum 3.2 g/dL (3.2-5.0); Alkaline Phosphatase 57 U/L (45-117); Bilirubin, Direct 0.11 mg/dL (0.00-0.30); Cholesterol 156 mg/dL (200); Globulin 3.5 g/dL (2.2-4.2); High Density Lipoprotein 50 mg/dL; Protein, Total 6.7 g/dL (6.4-8.2); Triglycerides 213 mg/dL; Very Low Density Lipoprotein 43 mg/dL (5-40)
== END | disposition home or self-care (01) ==
LOC: LAB 09:48
PROVIDERS: PCP Family Medicine; Referring Provider Nurse Practitioner Family; Visit Provider Nurse Practitioner Family
DX: E78.5 Hyperlipidemia, unspecified (principal)
CPT/HCPCS: 36415; 80061; 80076

== ENCOUNTER 2022-03-29 17:27 | Emergency (ER) | payer MEDICARE, SELFPAY ==
[2019-11-14 08:38] VITALS: BMI 31.6
[2022-03-29 17:27] VITALS: PULSE 120; RESP 16; TEMP 36.4; O2SAT 98; BMI 33.8
--- NOTE | 2022-03-29 17:34 | EDS_ITS ---
HPI <SKYLER Klein - Last Filed: 03/29/22 18:50> HPI - Fall History of Present Illness Chief Complaint: Fall Narrative Narrative: Prior to arrival patient was taking out the trash and slipped on the wet grass causing her to fall. She hit her left knee and then fell onto her right side striking her shoulder. No head injury or LOC. She was able to stand and ambulate but presents for evaluation of the right shoulder and left knee pain. [facility] <SKYLER Klein - Last Filed: 03/29/22 18:50> [facility] Medical History (Updated 03/29/22 @ 18:32 by SKYLER Klein) Atherosclerosis of [place] coronary artery of [place] heart without angina pectoris Carpal tunnel syndrome on both sides Essential hypertension FHx: cholecystectomy History of left heart catheterization (LHC) (~06/03/21) HLD (hyperlipidemia) Mechanical loosening of prosthetic knee PAD (peripheral artery disease) Trigger finger of both hands Type II diabetes mellitus Home Medications aspirin 81 mg tablet,delayed release 81 mg PO DAILY heart health 12/15/13 [History Last Taken 06/03/21] multivitamin 1 cap PO DAILY 03/28/19 [History Last Taken Unknown] glimepiride 4 mg tablet 8 mg PO QAM 07/15/20 [History Last Taken Unknown] potassium chloride 10 mEq tablet,extended release 20 meq PO DAILY When taking Lasix #180 tabs 12/09/20 [Rx Last Taken Unknown] insulin regular human 100 unit/mL injection solution 32 unit subcut BID 01/16/21 [History Last Taken Unknown] nitroglycerin 0.4 mg sublingual tablet 0.4 mg sublingual Q5-15M PRN chest pain #90 tabs 05/26/21 [Rx Last Taken Unknown] isosorbide mononitrate 60 mg tablet,extended release 24 hr 60 mg PO BID #60 tabs 06/04/21 [Rx Last Taken Unknown] metoprolol tartrate 25 mg tablet 25 mg PO BID #180 tabs 08/05/21 [Rx Last Taken Unknown] cilostazol 100 mg tablet 100 mg PO BID #60 tabs 09/25/21 [Rx Last Taken Unknown] duloxetine 20 mg capsule,delayed release 20 mg PO BID 09/25/21 [History Last Taken Unknown] furosemide 40 mg tablet (Lasix) 40 mg PO Q OTHER DAY PRN edema 03/29/22 [History Last Taken Unknown] oxycodone-acetaminophen 5 mg-325 mg tablet (Percocet) 1 tab PO Q8H PRN pain 3 days #9 tabs 03/29/22 [Rx Last Taken Unknown] rosuvastatin 10 mg tablet 10 mg PO DAILY 03/29/22 [History Last Taken Unknown] Allergy/AdvReac Type Severity Reaction Status Date / Time cefazolin Allergy Shortness Verified 03/29/22 17:30 of breath codeine Allergy Shortness Verified 03/29/22 17:30 of breath morphine Allergy Other Verified 03/29/22 17:30 naloxone [Naloxone] Allergy Shortness Verified 03/29/22 17:30 of breath pentazocine Allergy Shortness Verified 03/29/22 17:30 of breath pentazocine lactate Allergy Shortness Verified 03/29/22 17:30 [From Talwin] of breath atorvastatin AdvReac Severe Severe Verified 03/29/22 17:30 myalgias acetaminophen [From Tylenol] AdvReac Nausea Verified 03/29/22 17:30 Family History (Reviewed 09/25/21 @ 13:48 by Lobito Johnson AIRLINE MANAGERIAL SUPERVISOR, AIRLINE MANAGERIAL SUPERVISOR-C) Mother Heart disease Surgical History History of coronary artery bypass graft x 3 (~02/27/19) History of prosthetic unicompartmental arthroplasty of left knee Status post left heart catheterization (LHC) (~02/22/19) Social History Smoking Status: Former smoker how long ago did patient quit smokin years ago alcohol intake: current alcohol intake frequency: holidays/special occasions only substance use type: does not use caffeine: Yes Type: coffee Number of servings: 2 ROS <SKYLER Klein - Last Filed: 03/29/22 18:50> ROS ED ROS Narrative Constitutional: Negative for fever, chills, malaise. Eyes: Negative for visual change. ENT: Negative for sore throat, ear pain, rhinorrhea. CVS: Negative for palpitations, chest pain, syncope. Respiratory: Negative for shortness of breath, cough, orthopnea. GI: Negative for abdominal pain, nausea, vomiting. : Negative for dysuria, hematuria or frequency. Neuro: Negative for headache, motor/sensory dysfunction. Skin: Negative for rash, abscess, or wound. Musc: Positive for right shoulder and left knee for pain, swelling, trauma. Heme: Negative for easy bruising, bleeding, lymphadenopathy. EXAM <SKYLER Klein - Last Filed: 03/29/22 18:50> Physical Exam Narrative Exam Narrative: CONST: Patient sitting in no acute distress. EYES: Normal inspection. ENT: Normal inspection, moist mucous membranes. NECK: Normal inspection. No midline spinal tenderness, no step off or crepitus. RESP: No respiratory distress, CTAB. No chest wall tenderness. CVS: Regular rate and rhythm, no murmur, no gallop. ABD: Soft and nontender, no guarding or rebound, nondistended. Back: Normal inspection, no midline spinal tenderness, no step off or crepitus. SKIN: Color normal, no rash, warm, dry, intact. EXTREMITIES: Normal appearance, tenderness over anterior shoulder and proximal humerus, no deformity or crepitus. Limited shoulder ROM secondary to pain. No tenderness of the elbow forearm or hand. No tenderness of left arm NEURO: Oriented x4. Tender PSYCH: Normal affect. Const Vital Signs: 03/29/22 17:27 03/29/22 17:47 Temperature 97.5 F L Temperature Source Temporal Pulse Rate 120 H Respiratory Rate 16 Respiratory Effort Normal Non-Labored Respiratory Depth Normal Respiratory Pattern Normal Pulse Ox 98 Oxygen Delivery Method Room Air Room Air <Dr. Keith Varner MD - Last Filed: 03/29/22 17:53> Physical Exam Const Vital Signs: 03/29/22 17:27 03/29/22 17:47 Temperature 97.5 F L Temperature Source Temporal Pulse Rate 120 H Respiratory Rate 16 Respiratory Effort Normal Non-Labored Respiratory Depth Normal Respiratory Pattern Normal Pulse Ox 98 Oxygen Delivery Method Room Air Room Air MDM <SKYLER Klein - Last Filed: 03/29/22 18:50> [facility] MDM Narrative Medical decision making narrative: Patient had a mechanical fall on wet grass injuring her right shoulder and left knee. There was no head injury. She is able to stand and ambulate. She has tenderness of her right anterior shoulder and limited range of motion due to pain. Distally neurovascularly intact. She also has left knee abrasions with no significant bony tenderness. Normal extension. Exam otherwise negative for traumatic injuries. X-rays of right shoulder and left knee are negative. I prescribed Percocet for pain and left knee abrasions were cleansed and dressed with bacitracin and a bandage. I discussed if her shoulder is not improving after 1 week to follow-up with her primary care doctor and she was discharged in stable condition. Radiography Diagnostic Testing: Clinical Impression(s) from Imaging Studies Knee X-Ray 03/29/22 18:00 IMPRESSION: 1. No acute fracture or dislocation. 2. Status post medial compartment arthroplasty. 3. Small joint effusion. Electronically Signed: Raghav Arciniega MD at 18:19 EST , Shoulder X-Ray 03/29/22 18:00 IMPRESSION: 1. No acute fracture or dislocation. 2. Mild acromioclavicular joint arthrosis. Electronically Signed: Raghav Arciniega MD at 18:17 EST , ED attending interpretation of right shoulder shows no acute fracture dislocation, significant arthritic changes. ED attending interpretation of left knee shows arthroplasty intact, no acute fracture or dislocation. <Dr. Keith Varner MD - Last Filed: 03/29/22 17:53> MDM Radiography Diagnostic Testing: Clinical Impression(s) from Imaging Studies Knee X-Ray 03/29/22 18:00 IMPRESSION: 1. No acute fracture or dislocation. 2. Status post medial compartment arthroplasty. 3. Small joint effusion. Electronically Signed: Raghav Arciniega MD at 18:19 EST , Shoulder X-Ray 03/29/22 18:00 IMPRESSION: 1. No acute fracture or dislocation. 2. Mild acromioclavicular joint arthrosis. Electronically Signed: Raghav Arciniega MD at 18:17 EST , Treatment and Re-Evaluation Narrative: I have personally performed a face to face assessment of the patient and have reviewed the ALEJANDRA Note. I performed a substantive portion of the visit including all aspects of the following. My leblanc findings include: History: Patient was taking out the garbage by dragging it through the grass. She slipped in the grass. Her shoe came off. This caused her to fall to the ground. She landed on her left knee and her right shoulder. She states she never hit her head or lost consciousness. This was mechanical fall and not syncope. She needs a little help getting up but after that she has been able to walk and bear weight. The left knee is a little sore but not much. She mostly has pain in the anterior portion of the right shoulder. Not short of breath. Does not hurt to breathe. It does hurt to lift her right arm. She is on aspirin but no other anticoagulation. She is acting normally per family. Exam: Patient awake alert no acute distress. No sign of head trauma. There is some tenderness really to the anterior portion of her right shoulder. Clavicle does not seem tender. I do not see any bruising or contusion or abrasion developing there at this time. No tenderness further down the humerus elbow forearm or hand. Left arm is not involved. I am not getting chest wall tenderness. Breath sounds are equal bilaterally and no indication of discomfort with breathing. There is no cervical thoracic or lumbar spine tenderness. No pain with motion of her hips. She does have some abrasion on the anterior lateral aspect of her left knee and left upper leg/tib-fib area. No real swelling. No deformity. Extensor mechanism is intact. No laceration. Distal pulses are normal x4. Medical Decision Making: We will start with x-rays of her shoulder and knee. If there is new areas that develop of discomfort we will expand work-up at that point. Discharge Plan Triage Chief Complaint: Fall ED Midlevel Provider: Marielos Davenport ED Provider: Keith Varner Dx/Rx/DC Orders Clinical Impression: Contusion of right shoulder, Abrasion of knee, left Instructions: Bruises (Contusions), ED Abrasion Prescriptions: New oxycodone-acetaminophen [Percocet] 5-325 mg tablet 1 tab PO Q8H PRN (Reason: pain) 3 Days Qty: 9 0RF No Action multivitamin capsule capsule 1 cap PO DAILY glimepiride 4 mg tablet 8 mg PO QAM Rx Instructions: 2 tabs qAM insulin regular human 100 unit/mL solution 32 unit SC BID Rx Instructions: 70/30 46 units and 48 qpm nitroglycerin 0.4 mg tablet, sublingual 0.4 mg sublingual Q5-15M PRN (Reason: chest pain) Qty: 90 6RF Rx Instructions: do not exceed 3 doses per episode duloxetine 20 mg capsule,delayed release(DR/EC) 20 mg PO BID cilostazol 100 mg tablet 100 mg PO BID Qty: 60 11RF aspirin 81 MG tablet 81 mg PO DAILY furosemide [Lasix] 40 mg tablet 40 mg PO Q OTHER DAY PRN (Reason: edema) rosuvastatin 10 mg tablet 10 mg PO DAILY Rx Instructions: TAKE 1 TABLET BY MOUTH EVERY DAY potassium chloride 10 mEq tablet extended release 20 meq PO DAILY Qty: 180 3RF Rx Instructions: Take when taking Lasix. isosorbide mononitrate 60 mg tablet extended release 24 hr 60 mg PO BID Qty: 60 12RF metoprolol tartrate 25 mg tablet 25 mg PO BID Qty: 180 4RF Primary Care Provider: Marielos Perla Referrals: Marielos Perla DO [Primary Care Provider] - Activity Restrictions/Additional Instructions: X-rays of your shoulder knee showed no broken bones. Rest, ice, and use the Percocet as needed. After that you can take Tylenol or Motrin. If symptoms are not improving in 1 week please see your primary care doctor for reevaluation. Disposition Disposition: Home, Self Care
--- NOTE | 2022-03-29 18:00 | RAD_ITS ---
STUDY: X-RAY - RIGHT SHOULDER REASON FOR EXAM: Female, 72 years old. Injury/Pain TECHNIQUE: 2 view(s) of the shoulder. COMPARISON: None. FINDINGS: Normal glenohumeral articulation. There is degenerative arthrosis of the acromioclavicular joint without inferior osseous spur formation. Normal acromion. Normal humeral head and visualized proximal humerus. The soft tissue structures are unremarkable. Normal visualized pulmonary apex. RAD/Shoulder min 2 Views IMPRESSION: 1. No acute fracture or dislocation. 2. Mild acromioclavicular joint arthrosis. Electronically Signed: Raghav Arciniega MD at 18:17 EST ,
--- NOTE | 2022-03-29 18:00 | RAD_ITS ---
STUDY: X-RAY - LEFT KNEE REASON FOR EXAM: Female, 72 years old. Injury/Pain TECHNIQUE: 2 view(s) of the knee. COMPARISON: 11/24/2019 FINDINGS: Normal visualized distal femur. Normal visualized proximal tibia and fibula. Normal proximal tibiofibular articulation. Status post medial compartment arthroplasty. There is mild degenerative arthrosis of the lateral femorotibial compartment. There is mild degenerative arthrosis of the patellofemoral articulation. There is a soft tissue prominence in the suprapatellar region suggesting a small volume joint effusion. The soft tissue structures are unremarkable. RAD/Knee 1 or 2 Views IMPRESSION: 1. No acute fracture or dislocation. 2. Status post medial compartment arthroplasty. 3. Small joint effusion. Electronically Signed: Raghav Arciniega MD at 18:19 EST ,
[2022-03-29] MEDS: oxyCODONE 5 MG Tablet PO (18:05)
[2022-03-29 18:34] VITALS: BP 125/85; PULSE 74; RESP 18; TEMP 36.8; O2SAT 99
== END 2022-03-29 18:57 | disposition home or self-care (01) ==
PROVIDERS: Emergency Provider Emergency Medicine; PCP Family Medicine; Visit Provider Emergency Medicine
DX: S40.011A Contusion of right shoulder, initial encounter (principal); Z79.4 Long term (current) use of insulin; E11.9 Type 2 diabetes mellitus without complications; S80.212A Abrasion, left knee, initial encounter; I10 Essential (primary) hypertension; I25.10 Atherosclerotic heart disease of native coronary artery without angina pectoris; E78.5 Hyperlipidemia, unspecified; Z95.1 Presence of aortocoronary bypass graft; Z79.82 Long term (current) use of aspirin; Z79.899 Other long term (current) drug therapy; Z79.84 Long term (current) use of oral hypoglycemic drugs; W01.0XXA Fall on same level from slipping, tripping and stumbling without subsequent striking against object, initial encounter; Z87.891 Personal history of nicotine dependence
CPT/HCPCS: 73030; 73560; 99283

== ENCOUNTER → 2022-05-23 | Outpatient (CLI) | payer MEDICARE, SELFPAY ==
[2019-11-14 08:38] VITALS: BMI 31.6
--- NOTE | 2022-05-23 13:55 | MRI_ITS ---
EXAM: MR RIGHT UPPER EXTREMITY WITHOUT INTRAVENOUS CONTRAST, SHOULDER CLINICAL INDICATION: RT SHOULDER RCT TECHNIQUE: Multiplanar and multisequence MR images of the right shoulder without intravenous contrast. This report was created using [employer] report [employer] technology. COMPARISON: None. FINDINGS: TENDONS: SUPRASPINATUS: Full-thickness fullwidth tearing of the supraspinatus tendon with medial retraction of torn tendon fibers to the joint line. INFRASPINATUS: Full-thickness fullwidth tearing of the infraspinatus tendon with medial retraction of the torn tendon fibers to the joint line. SUBSCAPULARIS: Full-thickness partial width tearing of the subscapularis tendon involving the superior to middle fibers with medial retraction of the torn tendon fibers to the joint line. TERES MINOR: Unremarkable. Intact. BICEPS BRACHII, LONG HEAD: Tearing and retraction of the long head of the biceps tendon which is not seen within the bicipital groove. LIGAMENTS: GLENOHUMERAL: Unremarkable. Intact. MUSCLES: Moderate feathery edema involving the infraspinatus musculotendinous junction indicating a moderate grade strain injury. No rotator cuff muscle atrophy. FLUID: Large glenohumeral joint effusion with synovitis. This extends across the full thickness rotator cuff defects into the subacromial/subdeltoid bursa. CARTILAGE: Unremarkable. Articular cartilage intact. GLENOID LABRUM: Unremarkable. Normal variant absence of the anterior superior labrum with thickening of the middle glenohumeral ligament (Roger complex). No definite superior labral tear. BONES/JOINTS: Moderate hypertrophic degenerative changes acromioclavicular joint. Type I acromion with flat undersurface. No subacromial enthesophyte or os acromiale. OTHER SOFT TISSUES: Unremarkable. No rotator interval edema. MRI/Upper Ext Joint Only(Routine) IMPRESSION: 1. Full-thickness fullwidth tearing of the supraspinatus tendon with medial retraction of torn tendon fibers to the joint line. 2. Full-thickness fullwidth tearing of the infraspinatus tendon with medial retraction of the torn tendon fibers to the joint line. 3. Full-thickness partial width tearing of the subscapularis tendon involving the superior to middle fibers with medial retraction of the torn tendon fibers to the joint line. 4. Moderate feathery edema involving the infraspinatus musculotendinous junction indicating a moderate grade strain injury. 5. Tearing and retraction of the long head of the biceps tendon which is not seen within the bicipital groove. Electronically Signed: Timmy Woo MD at 1:25 EST ,
== END | disposition home or self-care (01) ==
LOC: MRI 05-26 09:12
PROVIDERS: PCP Family Medicine; Referring Provider Family Medicine; Visit Provider Family Medicine
DX: M75.101 Unspecified rotator cuff tear or rupture of right shoulder, not specified as traumatic (principal); M12.811 Other specific arthropathies, not elsewhere classified, right shoulder
CPT/HCPCS: 73221

== ENCOUNTER 2022-06-16 10:10 | Outpatient (RCR) | payer MEDICARE, SELFPAY ==
[2019-11-14 08:38] VITALS: BMI 31.6
--- NOTE | 2022-06-16 11:46 | HP.PTEVAL ---
Patient's Visit Information KINGSLEY GURROLA is a 72 year old F referred to Physical Therapy by Dr. Bruce Dubon MD with a diagnosis of Right Shoulder Pain. Date of Evaluation: 06/16/22 Physical Therapist: Nakia De La Garza DPT - Visit Plan Frequency: 2x /Week Duration: 4 Weeks Plan: Focus on UE ROM and scapular s/s. HEP Given IE: Posture, 6 way isometric, shoulder flexion and abduction with lift off wall wash - Subjective Right shoulder for about 2 months- she fell and now has tears in the shoulder. She has no issues with the shoulder before the fall- she landed on that side. Dr. Dubon who reported she needed therapy- she would need a complete replacement. She has had both an x-ray and MRI. No injection-her PCP put her on oxycodone-acetaminophen to control the pain but she doesn't take it unless she needs. Dull all the time- but is having soreness in the forearm. Worst: 3/10 Agg: raising the arm Eases: heat Best: 1/10. Pain is located in the anterior shoulder and grinds. Today was the first day she was able to curl her hair but she had to rest in-between curls. She is right hand dominate. Sleep: not disturbed. She is not very active- she has PAD in her legs and can only walk so far- she has also had open heart surgery- spends most of her day sitting at the shelter with her . 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 No neck pain, blurred vision or dizziness. PMHx/Meds: no changes since ortho - Objective Posture: FH, RS- can correct with tactile cues but does not maintain. Gait: fair arm swing and trunk rotation. Palpation: tender along bicipital groove and deltoid. ROM: Cervical: WFL, Shoulder: 160 degrees with discomfort, Abd: 150 degrees, IR: to belt line, ER: 40 degrees, Elbow/Wrist/Hand: WFL. 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, Scap: poor - Special Tests R Shoulder Lift Off Test - Subscapular Tear: Positive R Shoulder Drop Sign - IS Test: Positive R Shoulder Empty Can - SS: Positive R Shoulder Belly Press - SupScap: Positive R Shoulder Neer - Impingement: Positive R Shoulder Melgar Morro - Impingement: Positive - Balance/Special Test Scores Quick DASH Score: 38.6350 - Goals Goal 1:: Patient will be I with HEP and progression Goal Time Frame: 4-6 Weeks Goal 2:: Patient will demo full AROM of the right shoulder Goal Time Frame: 4-6 Weeks Goal 3:: Patient will maintain proper posture to demo increased scap s/s Goal Time Frame: 4-6 Weeks Goal 4:: Patient will report 80% improvement Goal Time Frame: 4-6 Weeks - Rehabilitation Potential Physical Therapy Diagnosis: Patient presents with hypomobility- she has decreased UE and scapular s/s, ROM and muscular endurance leading to poor posture and increased pain with ADL's Rehabilitation Potential: Fair - Anticipated Interventions Patient/Client Instruction: Educate patient on: Benefits of Fitness Program Therapeutic Exercise to Include: Strength training, Endurance training, Balance training, Body mechanics, Postural training, Flexibilty training, Neuromotor development, Passive ROM, Active ROM, Dynamic Lumbar Stabilization, Scapular Strength/Stabilization For the Purpose of:: To improve muscle performance and motor function TENS: Yes Cryotherapy (ice pack, ice massage): Yes Thermo therapy (hot pack): Yes Ultrasound (thermal/non thermal): Yes Thank you for the opportunity to evaluate your patient. For Medicare and Medicare HMO plans, please review the plan of care and approve it. It will need to be FAXED BACK to us at [phone] for Medicare purposes. For Medicare only, by signing this I certify the plan of care. Please let me know if there are questions or concerns regarding this plan of care. Physician Signature: Date:
--- NOTE | 2022-11-02 12:42 | HP.PT.NRP ---
Patient Information Patient Information: KINGSLEY GURROLA was seen in my office for initial evaluation on 06/16/22. The following Plan of Care was established for this patient: POC Established Initial Frequency: 2x /Week Initial Duration: 4 Weeks Anticipated Interventions Patient/Client Instruction: Educate patient on: Benefits of Fitness Program Therapeutic Exercise to Include: Strength training, Endurance training, Balance training, Body mechanics, Postural training, Flexibilty training, Neuromotor development, Passive ROM, Active ROM, Dynamic Lumbar Stabilization and Scapular Strength/Stabilization For the Purpose of:: To improve muscle performance and motor function TENS: Yes Cryotherapy (ice pack, ice massage): Yes Thermo therapy (hot pack): Yes Ultrasound (thermal/non thermal): Yes Last Seen Last Seen: This patient was last seen in our office . Pertinent comments regarding their Physical therapy will appear below: Patient has not returned to PT since IE- appropriate to return to MD for further evaluation. At this point I will be discontinuing this patient from physical therapy. I would be happy to see this patient again in the future if found appropriate by the physician. Thank you! Nakia De La Garza DPT Balance/Gait/Functional tests Balance/Special Test Scores Quick DASH Score: [phone]
== END 2022-06-16 19:00 | disposition home or self-care (01) ==
LOC: PT 10:10
PROVIDERS: PCP Family Medicine; Referring Provider Orthopaedic Surgery Sports Medicine; Visit Provider Orthopaedic Surgery Sports Medicine
DX: M75.101 Unspecified rotator cuff tear or rupture of right shoulder, not specified as traumatic (principal)
CPT/HCPCS: 97110; 97162

== ENCOUNTER → 2022-07-08 | Outpatient (CLI) | payer MEDICARE, SELFPAY ==
[2019-11-14 08:38] VITALS: BMI 31.6
--- NOTE | 2022-07-08 13:57 | ART_ITS ---
Reason For Study: PVD Procedure A bilateral lower extremity continuous wave Doppler with analog waveform analysis and ankle brachial indexes. Left Segmental Pressures Left brachial= 126mmHg. Left posterior tibial artery = 55mmHg. Left dorsalis pedis artery = 73mmHg. Left digit = 37 mmHg. The left dorsalis pedis waveforms are monophasic. The left posterior tibial artery waveforms are monophasic. Right Segmental Pressures Right brachial= 126mmHg. Right posterior tibial artery = 108mmHg. Right dorsalis pedis artery = 133mmHg. The right dorsalis pedis waveforms are biphasic. The right posterior tibial artery waveforms are biphasic. Indices The right ankle brachial index by the dorsalis pedis is 1.06. The right ankle brachial index by the posterior tibial artery is 0.86. The right digital-brachial index is 0.58. The left ankle brachial index by the dorsalis pedis is 0.58. The left ankle brachial index by the posterior tibial artery is 0.44. The left digital-brachial index is 0.29. VL/Ankle Brachial Index Interpretation Summary Right biphasic no ISIDRO 1.06. Left moderate disease with monophasic and ISIDRO 0.58. DBI 0.58/0.44. Ordering Physician: Moose Singh Referring Physician: Marielos Perla Performed By: Precious Orozco RVT
== END | disposition home or self-care (01) ==
LOC: CVS 13:56
PROVIDERS: PCP Family Medicine; Visit Provider Surgery Vascular Surgery
DX: I73.9 Peripheral vascular disease, unspecified (principal)
CPT/HCPCS: 93922

== ENCOUNTER → 2022-08-14 | Outpatient (CLI) | payer MEDICARE, SELFPAY ==
[2019-11-14 08:38] VITALS: BMI 31.6
[2022-08-14 14:03] LABS: Hematocrit 49.8 % (37-47); Hemoglobin 15.9 g/dL (12.0-15.0); Mean Corp Hgb Conc 31.9 g/dL (32-36); Mean Corpuscular Hgb 30.4 pg (27.0-32.0); Mean Corpuscular Volume 95.2 fL (81-99); Mean Platelet Vol. 10.5 fl (6.2-12.0); Platelet Count 309 K/mm3 (150-450); RBC Distribution Width CV 13.8 % (11.6-14.6); RBC Distribution Width SD 48.3 fl (35.1-43.9); Red Blood Count 5.23 M/mm3 (4.2-5.4)
[2022-08-14 14:27] LABS: BNP,B-Type NATRIURETIC PEPTIDE 336.8 pg/mL (0-100)
[2022-08-14 14:32] LABS: AST(SGOT) 24 U/L (15-37); Alanine Aminotransfer ALT/SGPT 25 U/L (13-56); Albumin, Serum 3.3 g/dL (3.2-5.0); Alkaline Phosphatase 68 U/L (45-117); Anion Gap 4 (5-15); BUN 26 mg/dL (7-18); Bilirubin, Direct 0.08 mg/dL (0.00-0.30); Calcium,Total 9.3 mg/dL (8.5-10.1); Chloride 109 mmol/L (98-107); Cholesterol 185 mg/dL (200); Creatinine, Serum 1.37 mg/dL (0.55-1.02); EST Glomerular Filtration Rate 40 mL/min (>60); Est Glom Filt Rate - Afr Amer 49 mL/min (>60); Glucose 70 mg/dL (74-106); High Density Lipoprotein 48 mg/dL; Potassium 4.2 mmol/L (3.5-5.1); Protein, Total 7.3 g/dL (6.4-8.2); Sodium Level 141 mmol/L (136-145); Triglycerides 360 mg/dL; Very Low Density Lipoprotein 72 mg/dL (5-40)
== END | disposition home or self-care (01) ==
LOC: LAB 13:17
PROVIDERS: PCP Family Medicine; Referring Provider Nurse Practitioner Family; Visit Provider Nurse Practitioner Family
DX: R06.02 Shortness of breath (principal); I25.10 Atherosclerotic heart disease of native coronary artery without angina pectoris; E78.00 Pure hypercholesterolemia, unspecified
CPT/HCPCS: 36415; 80048; 80061; 80076; 83880; 85027

== ENCOUNTER → 2022-11-23 | Outpatient (CLI) | payer MEDICARE, SELFPAY ==
[2019-11-14 08:38] VITALS: BMI 31.6
[2022-11-23 12:13] LABS: Absolute Lymphocyte Count 2.13 X10^3/uL (0.83-4.51); Absolute Neutrophil Count 4.6 X10^3/uL (2.0-7.7); Basophil# 0.07 X10^3/uL; Basophil% 0.9 % (0-1); Eosinophil# 0.62 X10^3/uL; Eosinophils% 7.6 % (0-5); Hemoglobin 15.5 g/dL (12.0-15.0); Lymphocyte # 2.13 X10^3/ul (0.83-4.51); Lymphocyte % 26.2 % (19-41); Mean Corp Hgb Conc 33.7 g/dL (32-36); Mean Corpuscular Hgb 31.2 pg (27.0-32.0); Mean Corpuscular Volume 92.6 fL (81-99); Mean Platelet Vol. 11.1 fl (6.2-12.0); Monocyte# 0.73 X10^3/uL; NRBC Flagged by Analyzer 0 % (0-5); Neutrophil # 4.56 X10^3/uL (2.7-7.7); Neutrophil % 55.9 % (47-70); Platelet Count 228 K/mm3 (150-450); RBC Distribution Width CV 13.5 % (11.6-14.6); RBC Distribution Width SD 45.6 fl (35.1-43.9); Red Blood Count 4.97 M/mm3 (4.2-5.4); White Blood Count 8.1 K/mm3 (4.4-11.0)
[2022-11-23 13:09] LABS: ALB/GLOB Ratio 0.9 RATIO (0.9-2.4); AST(SGOT) 24 U/L (15-37); Alanine Aminotransfer ALT/SGPT 29 U/L (13-56); Albumin, Serum 3.6 g/dL (3.2-5.0); Alkaline Phosphatase 65 U/L (45-117); Anion Gap 5 (5-15); BUN 27 mg/dL (7-18); Calcium,Total 9.1 mg/dL (8.5-10.1); Chloride 106 mmol/L (98-107); Cholesterol 165 mg/dL (200); EST Glomerular Filtration Rate 36 mL/min (>60); Est Glom Filt Rate - Afr Amer 44 mL/min (>60); Globulin 3.9 g/dL (2.2-4.2); Glucose 183 mg/dL (74-106); High Density Lipoprotein 51 mg/dL; Potassium 4.3 mmol/L (3.5-5.1); Protein, Total 7.5 g/dL (6.4-8.2); Sodium Level 138 mmol/L (136-145); Triglycerides 241 mg/dL; Very Low Density Lipoprotein 48 mg/dL (5-40)
[2022-11-23 13:22] LABS: Microalbumin:Creatinine Ratio 1038.3 mg/g CRE (<30 mg/g CRE)
== END | disposition home or self-care (01) ==
LOC: BFHLAB 09:15
PROVIDERS: PCP Family Medicine; Referring Provider Family Medicine; Visit Provider Family Medicine
DX: E11.65 Type 2 diabetes mellitus with hyperglycemia (principal); E78.1 Pure hyperglyceridemia; Z51.81 Encounter for therapeutic drug level monitoring
CPT/HCPCS: 36415; 80053; 80061; 82043; 82570; 85025

== ENCOUNTER → 2022-11-25 | Outpatient (CLI) | payer MEDICARE, SELFPAY ==
[2019-11-14 08:38] VITALS: BMI 31.6
== END | disposition home or self-care (01) ==
LOC: PSN 12:19
PROVIDERS: PCP Family Medicine; Referring Provider Physician Assistant Medical; Visit Provider Physician Assistant Medical
DX: I10 Essential (primary) hypertension (principal); I73.9 Peripheral vascular disease, unspecified; E78.5 Hyperlipidemia, unspecified; R00.2 Palpitations; Z95.1 Presence of aortocoronary bypass graft
CPT/HCPCS: 93225; 93226

== ENCOUNTER → 2023-06-14 | Outpatient (CLI) | payer MEDICARE, SELFPAY ==
[2019-11-14 08:38] VITALS: BMI 31.6
--- NOTE | 2023-06-14 15:50 | CT_ITS ---
EXAM: CT ANGIOGRAPHY HEAD AND NECK WITH INTRAVENOUS CONTRAST, WITHOUT AND WITH INTRA-ARTICULAR CONTRAST CLINICAL INDICATION: HEADACHES TECHNIQUE: [facility] [place] [facility] [place]/head and neck CT angiography protocol performed with intravenous contrast, without and with intra-articular contrast. This CT exam was performed using one or more of the following dose reduction techniques: automated exposure control, adjustment of the mA and/or kV according to patient size, and/or use of iterative reconstruction technique. MIP reconstructed images were created and reviewed. CONTRAST: IV 100mL [id number] COMPARISON: No relevant prior studies available. FINDINGS: HEAD: RIGHT ANTERIOR CEREBRAL ARTERY: No significant abnormality. No occlusion or significant stenosis. Anterior communicating artery is present. No aneurysm. RIGHT MIDDLE CEREBRAL ARTERY: No significant abnormality. No occlusion or significant stenosis. No aneurysm. RIGHT POSTERIOR CEREBRAL ARTERY: There is a small right posterior communicating artery. No occlusion or significant stenosis. No aneurysm. RIGHT INTRACRANIAL INTERNAL CAROTID ARTERY: Arteriosclerosis of the cavernous and supracavernous right internal carotid artery with at least mild stenosis. No dissection or occlusion. RIGHT INTRACRANIAL VERTEBRAL ARTERY: No significant abnormality. No significant stenosis. No dissection or occlusion. LEFT ANTERIOR CEREBRAL ARTERY: No significant abnormality. No occlusion or significant stenosis. No aneurysm. LEFT MIDDLE CEREBRAL ARTERY: No significant abnormality. No occlusion or significant stenosis. No aneurysm. LEFT POSTERIOR CEREBRAL ARTERY: No significant abnormality. No occlusion or significant stenosis. No aneurysm. LEFT INTRACRANIAL INTERNAL CAROTID ARTERY: Arteriosclerosis of the cavernous and supracavernous left internal carotid artery with at least mild stenosis. No dissection or occlusion. LEFT INTRACRANIAL VERTEBRAL ARTERY: Arteriosclerosis of the V4 intradural segment of the left vertebral artery with at least mild stenosis. No dissection or occlusion. BASILAR ARTERY: No significant abnormality. No occlusion or significant stenosis. No aneurysm. OTHER VASCULATURE: No vascular malformation. BRAIN AND EXTRA-AXIAL SPACES: There is non-specific periventricular hypoattenuation which is most commonly related to chronic microvascular ischemic disease in a patient of this age. There is no mass, mass-effect, or shift of the midline structures. No evidence of acute infarct or acute intracranial hemorrhage. There is no evidence of pathologic extra-axial fluid. There is no hydrocephalus. Patent basal cisterns. Posterior fossa structures are unremarkable. SINUSES: Normal as visualized. Clear. MASTOID AIR CELLS: Normal as visualized. Clear. ORBITS: Visualized globes, extraocular muscles, optic nerves and retrobulbar fat appear unremarkable. NECK: RIGHT COMMON CAROTID ARTERY: No significant abnormality. No significant stenosis. No dissection or occlusion. RIGHT EXTRACRANIAL INTERNAL CAROTID ARTERY: Atherosclerosis of the right carotid bifurcation and carotid bulb with less than 50% stenosis of the right internal carotid artery by NASCET criteria. No dissection or occlusion. RIGHT EXTERNAL CAROTID ARTERY: No significant abnormality. No occlusion. RIGHT EXTRACRANIAL VERTEBRAL ARTERY: No significant abnormality. No significant stenosis. No dissection or occlusion. LEFT COMMON CAROTID ARTERY: No significant abnormality. No significant stenosis. No dissection or occlusion. LEFT EXTRACRANIAL INTERNAL CAROTID ARTERY: Atherosclerosis of the left carotid bifurcation and carotid bulb with less than 50% stenosis of the left internal carotid artery by NASCET criteria. No dissection or occlusion. LEFT EXTERNAL CAROTID ARTERY: No significant abnormality. No occlusion. LEFT EXTRACRANIAL VERTEBRAL ARTERY: No significant abnormality. No significant stenosis. No dissection or occlusion. THYROID: Multinodular thyroid goiter with largest nodule measuring approximately 1.4 cm. BRACHIOCEPHALIC AND SUBCLAVIAN ARTERIES: Left subclavian artery atheroma at its origin without significant stenosis. AORTA: Mild atherosclerosis of the aorta without dissection or aneurysm identified. LUNG APICES: Normal as visualized. HEART: Likely status post CABG. HEAD and NECK: BONES/JOINTS: Median sternotomy. Bilateral TMJ arthrosis. Degenerative changes in the cervical spine. No discrete lytic or blastic abnormalities. SOFT TISSUES: No significant abnormality. CAROTID STENOSIS REFERENCE USING NASCET CRITERIA: % ICA stenosis = (1 - narrowest ICA diameter/diameter of distal cervical ICA) x 100. Mild - <50% stenosis. Moderate - 50-69% stenosis. Severe - 70-94% stenosis. Near occlusion - 95-99% stenosis. Occluded - 100% stenosis. CT/CTA Head AND Neck W/ Contrast IMPRESSION: 1. Multinodular thyroid goiter with largest nodule measuring approximately 1.4 cm. ACR White Paper guidelines (Birch JK, et al. JACR 2015;12(2):143-50) suggest no follow-up is necessary. 2. No large vessel occlusion or critical intracranial arterial stenosis. Arteriosclerosis of the cavernous and supracavernous internal carotid arteries with at least mild stenosis. 3. No critical arterial stenosis in the neck. Electronically Signed: Anthony Campuzano DO at 0:08 EST ,
[2023-06-14 16:16] LABS: CREATININE FINGERSTICK 1.4 mg/dL (0.55-1.02)
--- OUTSIDE RECORDS SUMMARY | 2023-06-14 23:54 | XMS RPT_ITS | CCD ---
Author Name Unknown Address [address] [place] [address] [address] [place] [id number] Organization [facility] Care Team Providers Care Log Yard Manager Name Role Phone Lianet Peters Primary Care Provider [phone] Allergies Allergy Classification Reported Allergen(s) Allergy Type Date of Onset Reaction(s) Facility (1 source) ceFAZolin Drug Allergy 02-22-2019 Hives, [facility]ness [facility] Breath [facility] [place] (1 source) Codeine Drug Allergy 02-22-2019 Hives, Shortness Of Breath [facility], [place] (1 source) Morphine Drug Allergy 02-22-2019 Hives, Shortness Of Breath [facility], [place] (1 source) Naloxone Drug Allergy 02-22-2019 Hives, [facility]ness [facility] Breath [facility] [place] ([facility] source) Pentazocine Drug Allergy 02-22-2019 Hives, Shortness Of Breath [facility] [place] Medications Current Medications Medication Drug Class(es) Dates Sig (Normalized) Sig (Original) acetaminophen 500 mg oral tablet (1 source) Start: 02-27-2019 take 500 mg by mouth every four hours as needed for pain, then take 4000 mg by mouth every twenty-four hours as needed for pain 500 mg, Oral, EVERY 4 HOURS PRN, Pain Mild (1-3), Fever, Fever >100.5 F (38 C), Starting 02/27/19 at 1635 Maximum dose of acetaminophen is 4000 mg from all sources in 24 hours. Post-op acetaminophen 325 mg / oxyCODONE hydrochloride 5 mg oral tablet (2 sources) Opioid Agonist Start: 03-03-2019 End: 03-10-2019 take 1 tablet by mouth every six hours as needed for pain oxyCODONE-acetamino phen (PERCOCET) 5-325 MG per tablet Indications: CAD in [place] artery , S/P CABG x 3 Take 1 tablet by mouth every 6 hours as needed for Pain for up to 7 days. 28 tablet 0 03/03/2019 03/10/2019 Active Completed/Discontinued Medications Medication Drug Class(es) Dates Sig (Normalized) Sig (Original) albuterol 1 mg/ml inhalant solution (1 source) beta2-Adrenergic Agonist Start: 02-28-2019 End: 02-28-2019 albuterol (PROVENTIL) nebulizer solution 10 mg calcium gluconate 2 g in sodium chloride 0.9 % 100 mL IVPB (1 source) Start: 02-27-2019 2 g, Intravenous, PRN, Starting Wed02/27/19 at 1635, Until Discontinued Via central line. Repeat serum ionized calcium 2 hours after infusion completed. Post-op chlorhexidine gluconate 1.2 mg/ml mouthwash (2 sources) Start: 02-27-2019 End: 03-01-2019 take 15 mL by mouth twice daily 15 mL, Mouth/Throat, 2 TIMES DAILY, First dose on Wed02/27/19 at 2100, For 7 days Rinse and spit. Do not swallow. Post-op Problems Problem Classification Problem Date Documented Date Episodic/Chronic Congestive heart failure; nonhypertensive (2 sources) Systolic heart failure; Translations: [HFrEF (heart failure with reduced ejection fraction)] 02-23-2019 Chronic Coronary atherosclerosis and other heart disease (2 sources) Coronary arteriosclerosis in [place] artery; Translations: [CAD in [place] artery] Onset: 02-22-2019 03-03-2019 Chronic Coronary atherosclerosis and other heart disease (2 sources) History of coronary artery bypass grafting; Translations: [S/P CABG x 3] Onset: 03-03-2019 03-03-2019 Episodic Diabetes mellitus without complication (3 sources) Type 2 diabetes mellitus; Translations: [Diabetes mellitus] 02-23-2019 Chronic Essential hypertension (2 sources) Hypertensive disorder; Translations: [Hypertension] 02-23-2019 Chronic Fluid and electrolyte disorders (2 sources) Hyperkalemia; Translations: [Hyperkalemia] 03-03-2019 Episodic Results Test Name Value Interpretation Reference Range Facil ity Vital Signs Date Time Vital Sign Value Performing Clinician Porter troncoso 03-03-2019 15:30-0500 BP Diastolic 55 mm[Hg] [facility] [place] 03-03-2019 15:30-0500 BP Systolic 124 mm[Hg] Mil Ashley [facility] , [facility] 03-03-2019 15:30-0500 Pulse (Heart Rate) 83 /min [facility] 03-03-2019 15:30-0500 Pulse Oximetry 96 % Mil Ashley [facility] 03-03-2019 15:30-0500 Respiratory Rate 18 /min Mil Ashley [facility], [facility] 03-03-2019 11:51-0500 Body Temperature 97.81 [degF] Mil Ashley [facility], [facility] 03-03-2019 00:00-0500 BMI (Body Mass Index) 34.14 kg/m2 Mil Ashley [facility], [facility] 03-03-2019 00:00-0500 Body weight 81.97 kg Mil Ashley [facility] 02-28-2019 12:00-0500 Height 154.9 cm Mil Ashley [place], [place] Encounters Encounter Date Encounter Type Care Provider Facility Start: 02-22-2019 End: 03-03-2019 Evaluation and management of inpatient Mil Pettit Work Phone: [facility] Procedures Date Procedure Procedure Detail Performing Clinician Start: 03-03-2019 End: 03-03-2019 Gluc bld gluc mntr dev cleared fda spec home use Grant A Taylor Work Phone: Start: 03-03-2019 Radiologic exam ches t single view Grant A Taylor Work Phone: Start: 03-03-2019 Basic metabolic pane l calcium total Grant A Taylor Work Phone: Start: 03-03-2019 Blood count complete automated Grant A Taylor Work Phone: Start: 03-02-2019 Gluc bld gluc mntr d ev cleared fda spec home use Grant A Taylor Work Phone: Start: 03-02-2019 Gluc bld gluc mntr d ev cleared fda spec home use Grant A Taylor Work Phone: Start: 03-02-2019 Gluc bld gluc mntr d ev cleared fda spec home use Grant A Taylor Work Phone: Start: 03-02-2019 Gluc bld gluc mntr d ev cleared fda spec home use Grant A Taylor Work Phone: Start: 03-02-2019 Radiologic exam ches t single view Grant A Taylor Work Phone: Start: 03-02-2019 Basic metabolic pane l calcium total Grant A Taylor Work Phone: Start: 03-02-2019 Blood count complete automated Grant A Taylor Work Phone: Start: 03-01-2019 Gluc bld gluc mntr d ev cleared fda spec home use Grant A Taylor Work Phone: Start: 03-01-2019 Gluc bld gluc mntr d ev cleared fda spec home use Grant A Taylor Work Phone: Start: 03-01-2019 Basic metabolic pane l calcium total Oren SparksAvatrip Work Phone: Start: 03-01-2019 Gluc bld gluc mntr d ev cleared fda spec home use Grant A Taylor Work Phone: Start: 03-01-2019 End: 03-01-2019 Gluc bld gluc mntr dev cleared fda spec home use Grant A Taylor Work Phone: Start: 03-01-2019 End: 03-01-2019 Gluc bld gluc mntr dev cleared fda spec home use Grant A Taylor Work Phone: Start: 03-01-2019 Ecg routine ecg w/le ast 12 lds w/i&r Grant A Taylor Work Phone: Start: 03-01-2019 Radiologic exam ches t single view Grant A Taylor Work Phone: Start: 03-01-2019 End: 03-01-2019 Gluc bld gluc mntr dev cleared fda spec home use Mil Pettit Work Phone: Start: 03-01-2019 Potassium serum plas ma/whole blood Michael Enrique Work Phone: Start: 03-01-2019 End: 03-01-2019 Gluc bld gluc mntr dev cleared fda spec home use Grant A Taylor Work Phone: Start: 03-01-2019 End: 03-01-2019 Gluc bld gluc mntr dev cleared fda spec home use Grant A Taylor Work Phone: Start: 03-01-2019 Assay of magnesium Grant A Taylor Work Phone: Start: 03-01-2019 Blood count complete automated Grant A Taylor Work Phone: Start: 02-28-2019 Gluc bld gluc mntr d ev cleared fda spec home use Grant A Taylor Work Phone: Start: 02-28-2019 End: 02-28-2019 Gluc bld gluc mntr dev cleared fda spec home use Grant A Taylor Work Phone: Start: 02-28-2019 Gluc bld gluc mntr d ev cleared fda spec home use Grant A Taylor Work Phone: Start: 02-28-2019 End: 02-28-2019 Gluc bld gluc mntr dev cleared fda spec home use Mil Pettit Work Phone: Start: 02-28-2019 Gluc bld gluc mntr d ev cleared fda spec home use Grant A Taylor Work Phone: Start: 02-28-2019 Gluc bld gluc mntr d ev cleared fda spec home use Grant A Taylor Work Phone: Start: 02-28-2019 End: 02-28-2019 Gluc bld gluc mntr dev cleared fda spec home use Grant A Taylor Work Phone: Start: 02-28-2019 Gluc bld gluc mntr d ev cleared fda spec home use Grant A Taylor Work Phone: Start: 02-28-2019 End: 02-28-2019 Gluc bld gluc mntr dev cleared fda spec home use Grant A Taylor Work Phone: Start: 02-28-2019 OPERATIVE REPORT 3m Sca nning Start: 02-28-2019 End: 02-28-2019 Gluc bld gluc mntr dev cleared fda spec home use Grant A Taylor Work Phone: Start: 02-28-2019 Gluc bld gluc mntr d ev cleared fda spec home use Grant A Taylor Work Phone: Start: 02-28-2019 Potassium serum plas ma/whole blood Lukas Jose Maria Work Phone: Start: 02-28-2019 End: 02-28-2019 Gluc bld gluc mntr dev cleared fda spec home use Grant A Taylor Work Phone: Start: 02-28-2019 Ecg routine ecg w/le ast 12 lds w/i&r Grant A Taylor Work Phone: Start: 02-28-2019 Radiologic exam ches t single view Grant A Taylor Work Phone: Start: 02-28-2019 End: 03-01-2019 Basic metabolic panel calcium total Grant A Taylor Work Phone: Start: 02-28-2019 Blood count complete automated Grant A Taylor Work Phone: Start: 02-28-2019 End: 02-28-2019 Gluc bld gluc mntr dev cleared fda spec home use Grant A Taylor Work Phone: Start: 02-28-2019 End: 03-01-2019 Gluc bld gluc mntr dev cleared fda spec home use Grant A Taylor Work Phone: Start: 02-27-2019 End: 02-27-2019 Gluc bld gluc mntr dev cleared fda spec home use Grant A Taylor Work Phone: Start: 02-27-2019 Gluc bld gluc mntr d ev cleared fda spec home use Grant A Taylor Work Phone: Start: 02-27-2019 End: 02-27-2019 Gluc bld gluc mntr dev cleared fda spec home use Grant A Taylor Work Phone: Start: 02-27-2019 End: 02-27-2019 Gluc bld gluc mntr dev cleared fda spec home use Mil Pettit Work Phone: Start: 02-27-2019 SPEAKING VALVE Chantell pastor Work Phone: Start: 02-27-2019 Radiologic exam ches t single view Grant A Taylor Work Phone: Start: 02-27-2019 Gluc bld gluc mntr d ev cleared fda spec home use Mil Pettit Work Phone: Start: 02-27-2019 End: 02-27-2019 Assay of magnesium Mil Pettit Work Phone: Start: 02-27-2019 Assay of phosphorus inorganic Mil Pettit Work Phone: Start: 02-27-2019 End: 02-27-2019 Basic metabolic panel calcium total Mil Pettit Work Phone: Start: 02-27-2019 End: 02-27-2019 Blood count complete automated Mil Pettit Work Phone: Start: 02-27-2019 BLOOD GAS, ARTERIAL Allan jose Pettit Work Phone: Start: 02-27-2019 Calcium ionized Mil Pettit Work Phone: Start: 02-27-2019 PROTIME/INR & PTT Jean-Claude Pettit Work Phone: Start: 02-27-2019 ECHOCARDIOGRAM TRANSESOPHAGEAL Ronda Mcdonald Work Phone: Start: 02-27-2019 Gluc bld gluc mntr d ev cleared fda spec home use Mil Pettit Work Phone: Start: 02-27-2019 End: 02-28-2019 Gluc bld gluc mntr dev cleared fda spec home use Mil Pettit Work Phone: Start: 02-27-2019 BASIC METABOLIC PANE L W/ REFLEX TO MG FOR LOW K Jayson Metzger Work Phone: Start: 02-26-2019 Gluc bld gluc mntr d ev cleared fda spec home use Mil Pettit Work Phone: Start: 02-26-2019 Gluc bld gluc mntr d ev cleared fda spec home use Mil Pettit Work Phone: Start: 02-26-2019 Urnls dip stick/tabl et rgnt auto w/o microscopy Ronda Dalalrell Work Phone: Start: 02-26-2019 Blood typing serologic abo Ronda E Harry Work Phone: Start: 02-26-2019 Prothrombin time Ronda E Harry Work Phone: Start: 02-26-2019 Gluc bld gluc mntr d ev cleared fda spec home use Mil Pettit Work Phone: Start: 02-26-2019 Gluc bld gluc mntr d ev cleared fda spec home use Mil Pettit Work Phone: Start: 02-26-2019 BASIC METABOLIC PANE L W/ REFLEX TO MG FOR LOW K Jayson Rina Metzger Work Phone: Start: 02-26-2019 Blood count complete automated Jayson Lordaniel Work Phone: Start: 02-25-2019 Gluc bld gluc mntr d ev cleared fda spec home use Mil Pettit Work Phone: Start: 02-25-2019 Gluc bld gluc mntr d ev cleared fda spec home use Mil Pettit Work Phone: Start: 02-25-2019 Gluc bld gluc mntr d ev cleared fda spec home use Mil Pettit Work Phone: Start: 02-25-2019 Non-invasive physiol ogic study extremity 3 cecilia Basilio Work Phone: Start: 02-25-2019 Dup-scan xtr veins unilateral/limited study Mauricio Encinas Work Phone: Start: 02-25-2019 Duplex scan extracra nial art compl bi study Mauricio Encinas Work Phone: Start: 02-25-2019 Cul prsmptv pthgnc o rganism scrn w/[place] estimj Jess Karlene Start: 02-25-2019 Ecg routine ecg w/le ast 12 lds w/i&r Lukas Jose Maria Work Phone: Start: 02-25-2019 Gluc bld gluc mntr d ev cleared fda spec home use Mil Pettit Work Phone: Start: 02-25-2019 Urnls dip stick/tabl et rgnt auto w/o microscopy Lukas Moise Work Phone: Start: 02-25-2019 Hemoglobin glycosylated a1c Lukas Moise Work Phone: Start: 02-24-2019 Gluc bld gluc mntr d ev cleared fda spec home use Mil Pettit Work Phone: Start: 02-24-2019 Gluc bld gluc mntr d ev cleared fda spec home use Mil Pettit Work Phone: Start: 02-24-2019 Gluc bld gluc mntr d ev cleared fda spec home use Mil Pettit Work Phone: Start: 02-24-2019 Gluc bld gluc mntr d ev cleared fda spec home use Mil Pettit Work Phone: Start: 02-23-2019 Gluc bld gluc mntr d ev cleared fda spec home use Mil Pettit Work Phone: Start: 02-23-2019 Radiologic exam ches t single view Mauricio Huang Work Phone: Start: 02-23-2019 BEDSIDE SPIROMETRY Andr kaylee Huang Work Phone: Start: 02-23-2019 Gluc bld gluc mntr d ev cleared fda spec home use Mil Pettit Work Phone: Start: 02-23-2019 End: 02-23-2019 Gluc bld gluc mntr dev cleared fda spec home use Mil Pettit Work Phone: Start: 02-23-2019 Blood count complete auto&auto difrntl wbc Hazeldaya Conrad Work Phone: Start: 02-23-2019 Blood count complete automated Brigido Conrad Work Phone: Start: 02-22-2019 Gluc bld gluc mntr d ev cleared fda spec home use Mil Pettit Work Phone: Start: 02-22-2019 Gluc bld gluc mntr d ev cleared fda spec home use Mil Pettit Work Phone: Plan of Treatment Date Care Activity Detail Author Start: 02-24-2020 Creatinine monitoring Creatinine monitoring [place], [place] Start: 02-24-2020 Potassium monitoring Potassium monitoring [place], [place] Start: 03-14-2019 End: 03-14-2019 Office Visit 03/14/2019 Office Visit Cardiothoracic Surgery Ronda Mcdonald, ADMISSION NURSE - DESIGN/ANIMATION INSTRUCTOR [address] [place] [address] [phone] [facility] Start: 02-24-2019 Annual Wellness Visit (AWV) Annual Wellness Visit (AWV) [place], [place] Start: 12-18-2018 Influenza vaccination Flu vaccine (#1) [place], [place] Start: 2015 DEXA (modify frequency per FRAX score) DEXA (modify frequency per FRAX score) [place], [place] Start: 2015 Pneumococcal 65+ years Vaccine (1 of 1 - PPSV23) Pneumococcal 65+ years Vaccine (1 of 1 - PPSV23) [place], [place] Start: 01-31-2000 Breast cancer screen Breast cancer screen [place], [place] Start: 01-31-2000 Colon cancer screen colonoscopy Colon cancer screen colonoscopy [place], [place] Start: 01-31-2000 Shingles Vaccine (1 of 2) Shingles Vaccine (1 of 2) [place], [place] Start: 01-31-1968 Diabetic microalbuminuria test Diabetic microalbuminuria test [place], [place] Start: 1961 DTaP/Tdap/Td vaccine (1 - Tdap) DTaP/Tdap/Td vaccine (1 - Tdap) [place], [place] Start: 01-31-1960 [object Object] Diabetic foot exam [place], [place] Start: 01-31-1960 A1C test (Diabetic or Prediabetic) A1C test (Diabetic or Prediabetic) [place], [place] Start: 01-31-1960 Diabetic retinal exam Diabetic retinal exam [place], [place] Start: 01-31-1960 Lipid screen Lipid screen [place], [place] Start: 1950 Hepatitis C screen Hepatitis C screen Gabi [facility] Acapella Acapella Respira tory Care Routine Every 2hr while awake until discontinued starting 02/27/2019 [facility] Payers Date Payer Category Payer Medicare HUMANA MEDICARE HUMANA CHOICE-PPO MEDICARE xxxxxxxxx 2018-Present [address] [address] [place] [address] xxxxxxxxx [id number] Social History Date Type Detail Facility Start: 02-23-2019 Tobacco smoking stat us IDIS Unknown if ever smoked [facility] Sex Assigned At Not on file [facility] Medical Equipment Procedure Code Equipment Code Equipment Origin al Text Equipment Identifier Dates Test three times a day & as needed for symptoms of irregular blood glucose. [id number] Start: 03-03-2019 Discharge Instructions * Discharge Instr - Lab* Yamilet Nogueira RN - 03/02/2019 3:13 PM EST Your physician has ordered skilled home care services for you. Your home care will be provided by: [facility] [phone] * Additional Instructions* Lukas Moise, ADMISSION NURSE - DESIGN/ANIMATION INSTRUCTOR - 03/03/2019 When to call the surgeon: If any symptoms concern you, call us: -Dr. Taylor/Dr. Medina's office -Phone number [phone] [address] [place] Notify us if the following occur: -Increased tenderness,redness, or swelling of your incisions. -Any drainage from the chest incision (clear or pink drainage from the leg incision or chest tube site is common). -Angina symptoms like those you had before surgery -Sharp pain in chest, neck or shoulder that is worse when taking a deep breath -Persistent fever greater than 100 degrees F or 38 degrees C -Flu-like symptoms-chills, aches, fever, increased fatigue -Heart rate faster than 150 beats/minute with shortness of breath or new irregular heart rate. -Any unusual bleeding -Shortness of breath not relieved by rest -Weight gain of three pounds in one day or five pounds over one week Activity Instructions: -Sternal Precautions for 6 weeks -Do not lift,push, or pull anything heavier than 10 pounds for 6 weeks( a gallon of milk weighs 8 pounds) -Do not drive for 3-4 weeks, until permission by your surgeon and until you are off pain medication -It is ok to sleep on your side if you prop pillows to support your back. Do not sleep on your stomach. -Walk at least 4 times a day, start with 5 minute intervals, increase minutes walked each day. Do not walk on a treadmill -Balance rest and activity during your recovery -Use the stairs,but go slowly,Use the handrail for balance but do not pull yourself up with your arms. -Shower daily. Do not take your heart medication right before you shower. You could become lightheaded from your blood pressure and heart medication. Always have someone near by to assist you when you shower for the first week you are home. -Do not take a tub bath or use a hot tub until all incision are completely healed (no scab). -Put akil hose on in AM and remove at bedtime. Elevate your feet above level of heart when you are sitting. -Cough and deep breath and use incentive spirometer every hour(10x/hour while awake for two weeks. Other Instructions: -Weigh yourself daily at the same time (after you urinate but before breakfast) -Keep a record of your daily weight, and bring to your first post op office visit -Take all medications as prescribed. Bring all your medication bottles to the first post op office visit Incision Care -Wash your sternal incision with mild soap and warm water. Pat dry, and leave open to air. Do not use any lotions, or powders, or ointments. * Attachments The following attachments cannot be sent through Care Everywhere. * Coronary Artery Bypass Graft: Post-op (Chinese) documented in this encounter History of Present Illness * Lukas Moise APRN - CNS - 03/03/2019 12:45 PM EST Cardiothoracic Interval Progress Note 1. Talked with patient and her daughter in law and reviewed discharge education 2. Epicardial wires discontinued (cut) after skin retracted. Tolerated well 3. Will use meds to beds for pt to see what cost of medications would be and if reasonable with [facility] if not then will redo med/rec for discharge to pt's home pharmacy * Lukas Moise APRN - CNS - 03/03/2019 6:33 AM EST Cardiothoracic Surgery Progress Note 03/03/2019 Subjective: Admit Date: 02/22/2019 Interval History: S/P CABG x3 on 02/27/19 POD#4- no issues over night Subjective: Resting in bed. No complaints. States yes when asked if ready to go home today Objective: Vitals: Temp (24hrs), Av.8 F (36.6 C), Min:97.3 F (36.3 C), Max:98.2 F (36.8 C) BP 135/60 Pulse 87 Temp 97.8 F (36.6 C) (Oral) Resp 18 Ht 5' 1 (1.549 m) Wt 180 lb 11.2 oz (82 kg) SpO2 94% BMI 34.14 kg/m I/O: Date 03/03/19 0000 - 03/03/19 2359 Shift 2134-8303 8118-1945 1745-1944 24 Hour Total INTAKE P.O. 120 120 Shift Total(mL/kg) 120(1.5) 120(1.5) OUTPUT Urine(mL/kg/hr) 600(0.9) 600 Shift Total(mL/kg) 600(7.3) 600(7.3) Weight (kg) 82 82 82 82 Weights: Patient Vitals for the past 96 hrs (Last 3 readings): Weight 03/03/19 0000 180 lb 11.2 oz (82 kg) 03/02/19 0415 181 lb 8 oz (82.3 kg) 03/01/19 0600 182 lb 11.2 oz (82.9 kg) Labs: BMP: Recent Labs 03/01/19 1621 03/02/19 0105 03/03/19 0020 NA 132* 135 138 K 5.5* 5.0 4.6 CL 102 104 102 CO2 20* 22 25 BUN 33* 32* 28* CREATININE 1.40* 1.24 1.21 GLUCOSE 293* 253* 170* . CBC: Recent Labs 03/02/19 0105 03/03/19 0020 WBC 18.8* 16.2* HGB 11.0* 10.6* PLT 169 201 Hepatic: No results for input(s): AST, ALT, ALB, BILITOT, ALKPHOS in the last 72 hours. INR: Lab Results Component Value Date PROTIME 13.5 02/27/2019 INR 1.3 02/27/2019 Films: CXR portable: Reviewed Physical Exam: Physical Exam Constitutional: General: She is not in acute distress. Appearance: She is well-developed and well-nourished. She is not diaphoretic. HENT: Head: Normocephalic and atraumatic. Eyes: Pupils: Pupils are equal, round, and reactive to light. Neck: Musculoskeletal: Normal range of motion and neck supple. Vascular: No JVD. Cardiovascular: Rate and Rhythm: Normal rate and regular rhythm. Pulses: Intact distal pulses. Pulses are palpable. Heart sounds: Normal heart sounds, S1 normal and S2 normal. No murmur. No friction rub. No gallop. Pulmonary: Effort: Pulmonary effort is normal. No respiratory distress. Breath sounds: Normal breath sounds. No stridor. Abdominal: General: Bowel sounds are normal. There is no distension. Palpations: Abdomen is soft. Tenderness: There is no tenderness. Musculoskeletal: Normal range of motion. General: No tenderness or edema. Skin: General: Skin is warm and dry. Capillary Refill: Capillary refill takes less than 2 seconds. Comments: Mid sternal chest incision intact with no signs of infection. . Neurological: Mental Status: She is alert and oriented to person, place, and time. Cranial Nerves: No cranial nerve deficit. Psychiatric: Mood and Affect: Mood and affect normal. Behavior: Behavior normal. Thought Content: Thought content normal. Judgment: Judgment normal. Medications: Scheduled Meds: ipratropium-albuterol 1 ampule Inhalation Q4H insulin lispro 10 Units Subcutaneous TID WC insulin glargine 60 Units Subcutaneous Daily heparin (porcine) 5,000 Units Subcutaneous BID insulin lispro 0-12 Units Subcutaneous TID WC metoprolol tartrate 25 mg Oral BID pantoprazole 40 mg Oral QAM AC FLUoxetine 20 mg Oral Daily sodium chloride flush 10 mL Intravenous 2 times per day sennosides-docusate sodium 1 tablet Oral BID polyethylene glycol 17 g Oral Daily mupirocin Nasal BID atorvastatin 80 mg Oral Nightly aspirin 81 mg Oral Daily Continuous Infusions: dextrose Home Meds: Prior to Admission medications Medication Sig Start Date End Date Taking? Authorizing Provider aspirin 81 MG tablet Take 1 tablet by mouth daily 02/16/06 Yes Historical Provider, quinapril (ACCUPRIL) 20 MG tablet Take 1 tablet by mouth daily 06/15/06 Yes Historical Provider, FLUoxetine (PROZAC) 20 MG capsule Take 1 capsule by mouth daily 02/16/06 Historical Provider, metFORMIN (GLUCOPHAGE) 500 MG tablet Take 1 tablet by mouth nightly 06/30/06 Historical Provider, Diet: Dietary Nutrition Supplements: Diabetic Oral Supplement DIET CARDIAC; Carb Control: 4 carb choices (60 gms)/meal Problem List: Principal Problem: CAD in [place] artery Active Problems: S/P CABG x 3 Hyperkalemia Diabetes mellitus (HCC) Hypertension HFrEF (heart failure with reduced ejection fraction) ([facility]) Resolved Problems: * No resolved hospital problems. * Assessment and Plan: 1. Multivessel CAD: Status post CABG x 3: GIRALDO to LAD, V to OM2, V to PDA of RCA; EVH; DONNELL on 02/27/19 -EF 35-40% % on DONNELL -Core Medication: [x]ASA [x]BB [x] Statin [] ACEi/ARB no r/t WILLARD -Anticoagulation: n/a 2. Resp Insufficiency: (normal post operative course) On RA-. CXR: Reviewed by Dr. Medina who is covering for Dr. Taylor during rounds today. Continue C&DB, Enc use of IS. 3. Hypertension: SBP 110-140's. Controlled on BB. 4. WILLARD: Creatinine 1.21 today. Resolved. 5. Blood loss Anemia: Hgb: 10.4 Stable. No s/s bleeding. 6. Leukocytosis: WBC:16.2 trending down Probable reactive. Afebrile. 7. DM/Stress Hyperglycemia: Insulin per endocrine will need recommendations for home prior to discharge. If new to insulin will need diabetic insulin education 8. HxDepression: Home prozac 9. Post op pain: Continue prn's with relief 10. GI/DVT prophylaxis: PPI/Teds 11. Disposition: Plan discharge home later today with follow up in [place] office in 7-10 days Blood Conservation Initiative Log: - none to date * Clint Gresham - 03/02/2019 3:28 PM EST Physical Therapy Facility/Department: [facility] Daily Treatment Note NAME: Christy Gurrola : 1950 Date of Service: 03/02/2019 Discharge Recommendations: Home independently Assessment Body structures, Functions, Activity limitations: Decreased functional mobility ;Decreased strength;Decreased endurance;Decreased balance Assessment: pt was able to perform ex's with no increase pain but fatiuged quickly during ex's. pt needed extended breaks at a shorter amount of time. pt should progress to Home post Disch Specific instructions for Next Treatment: functional strength/endurance training. Prognosis: Good Decision Making: Medium Complexity PT Education: PT Role;Plan of Care;Home Exercise Program;Goals REQUIRES PT FOLLOW UP: Yes Activity Tolerance Activity Tolerance: Patient limited by fatigue;Patient limited by endurance Activity Tolerance: pt rated exertion at 13/20 post gait. Patient Diagnosis(es): There were no encounter diagnoses. has a past medical history of Arthritis, Blood circulation, collateral, CAD in [place] artery, Diabetes mellitus (HCC), HFrEF (heart failure with reduced ejection fraction) ([facility]LY [facility]), and Hypertension. has a past surgical history that includes joint replacement and Cholecystectomy. Restrictions Restrictions/Precautions Restrictions/Precautions: Fall Risk Required Braces or Orthoses?: No Position Activity Restriction Sternal Precautions: No Pushing, No Pulling, 10# Lifting Restrictions Sternal Precautions: yes Other position/activity restrictions: telemetry; 2LO2 NC Subjective General Chart Reviewed: Yes Response To Previous Treatment: Patient with no complaints from previous session. Family / Caregiver Present: No Subjective Subjective: pt in chair, agreeable to PT. nsg cleared pt for PT. Pain Screening Patient Currently in Pain: No Pain Assessment Clinical Progression: Not changed POSS Score (Patient Ctrl Analgesia): 1 Vital Signs Patient Currently in Pain: No Orientation Orientation Overall Orientation Status: Within Normal Limits Cognition Objective Transfers Sit to Stand: Minimal Assistance(x2 ) Stand to sit: Contact guard assistance Comment: x1 from chair; x1 from toilet; good compliance w/ sternal precautions. Ambulation Ambulation?: Yes WB Status: sternal precautions. More Ambulation?: Yes Ambulation 1 Surface: level tile Device: Rollator Other Apparatus: O2 Assistance: Stand by assistance Quality of Gait: slow but steady bonnie. Gait Deviations: Slow Bonnie;Decreased step length Distance: 100' x4 Comments: x4 standing rest breaks d/t fatigue Ambulation 2 Surface - 2: level tile Device 2: No device Assistance 2: Stand by assistance Quality of Gait 2: decrease weight shifting, decrease step length and height. Distance: 14' + 10' Comments: seated break on toilet Balance Posture: Good Sitting - Static: Good Sitting - Dynamic: Fair Standing - Static: Fair Standing - Dynamic: Fair Exercises Upper Extremity: P&C Ex x 10 reps each Comments: Patient fatigued during P&C ex's needing verbal cues from PT to complete ex's. G-Code OutComes Score AM-PAC Score Goals Short term goals Time Frame for Short term goals: 2 weeks Short term goal 1: Ambulate 200 feet x1 independently; PROGRESSING Short term goal 2: Transfers independently ; PROGRESSING Short term goal 3: Ascend/descend 2 steps independently ; PROGRESSING Short term goal 4: Perform walking program and P&C exercises independently ; PROGRESSING Patient Goals Patient goals : to get home Plan Plan Times per week: 5-7 Plan weeks: 2 weeks Specific instructions for Next Treatment: functional strength/endurance training. Current Treatment Recommendations: Strengthening, Transfer Training, Endurance Training, Patient/Caregiver Education & Training, Equipment Evaluation, Education, & procurement, Home Exercise Program, Functional Mobility Training, Balance Training, ROM, Safety Education & Training Plan Comment: Cont PT POC Safety Devices Type of devices: All fall risk precautions in place, Call light within reach, Gait belt, Left in chair Therapy Time Individual Concurrent Group Co-treatment Time In 1406 Time Out 1433 Minutes 27 Timed Code Treatment Minutes: 27 Minutes(FAx1, GA x1 ) DIEGO Gutierres PTA * Oren Adams MD - 03/02/2019 9:21 AM EST Critical Care Progress Note 03/02/2019 9:21 AM Subjective: Admit Date: 02/22/2019 PCP: LIANET PETERS No chief complaint on file. Interval History: 69 yo f with CAD s/p 3-CABG, hyperkalemia, DM2, anemia, leukocytosis, CKD3, HFrEF. Extubated 02/27 uneventfully, on 2 LPM O2 03/01, recovering well. Review of Systems Pain well controlled, is OOB to chair, eating, able to stand, walked in HLU today. No dyspnea, minimal cough productive of clear sputum, extubation 02/27, is on 2 LPM O2. No h/o COPD at baseline, but is an active smoker and requesting something for congestion. Cough is weak due to pain. Adding nebulized bronchodilators today. Diet:Dietary Nutrition Supplements: Diabetic Oral Supplement DIET CARDIAC; Medications: Scheduled Meds: ipratropium-albuterol 1 ampule Inhalation Q4H heparin (porcine) 5,000 Units Subcutaneous BID insulin glargine 45 Units Subcutaneous Daily insulin lispro 6 Units Subcutaneous TID WC insulin lispro 0-12 Units Subcutaneous TID WC metoprolol tartrate 25 mg Oral BID pantoprazole 40 mg Oral QAM AC FLUoxetine 20 mg Oral Daily sodium chloride flush 10 mL Intravenous 2 times per day sennosides-docusate sodium 1 tablet Oral BID polyethylene glycol 17 g Oral Daily mupirocin Nasal BID atorvastatin 80 mg Oral Nightly aspirin 81 mg Oral Daily Continuous Infusions: dextrose is on metformin alone at home for her diabetes. Objective: Vitals: Temp (24hrs), Av F (36.7 C), Min:97.6 F (36.4 C), Max:98.5 F (36.9 C) BP 132/68 Pulse 101 Temp 97.6 F (36.4 C) (Oral) Resp 16 Ht 5' 1 (1.549 m) Wt 181 lb 8 oz(82.3 kg) SpO2 94% BMI 34.29 kg/m I/O: 03/01 0701 - 03/02 0700 In: - Out: 1500 [Urine:1500] CVP: CVP (Mean): 10 mmHg Invasive Lines: RIJ swan introducer (swan out), last readings 02/27; 2 mediastinal and L chest tubes drained 257cc total past 24h Ventilator Settings: on 02/27, extubated 02/28, now on 2 LPM O2. Physical Exam General Appearance: []WDWN [x]Obese []Cachectic []Thin []ill Skin: Temperature [x]Warm []Cool / Rash []Yes []No / Tattoo(s) []Yes []No Heent: Pupils round and react [x]Yes []No Sclera []Icteric []Non-Icteric Conjunctiva []Injected [x]Non-Injected / Pinnae []Normal []Other/ Dentitian []Anvik Teeth []Dentures Oral Mucosa []Davie [x]Moist []Dry/ Oral ETT []Present [x]Absent Neck: Trachea midline [x]Yes []No/ Thyromegaly []Yes [x]No/ Crepitus []Present [x]Absent /Jvd []Present [x]Absent Lungs: []Clear []Crackles [x]Wheezes []Rhonchi / Respiratory effort []Labored [x]Non-Labored Heart: [x]RRR []Irregularly Irregular []murmur present []murmur absent/ Peripheral Edema [x]Absent []Present Abdomen: []Soft Bowel Sounds [x]Present []Absent []Diminished []Hyperactive []Hypoactive []Tender []Non-Tender []Distended [x]Non-distended / Hernia []Present []Absent / Organomegaly [x]Absent []Present/ []Scar Extremities: Cyanosis []Present [x]Absent/ FERGUSON ([]RUE []RLE []LUE []LLE) Neurologic: [place] []Yes [x]No Corneal reflexes []Present []Absent / Plantar reflexes []Up [x]Down []Absent / Withdraws to tactile [x]Yes []No/ Follows Commands [x]Yes []No []Unresponsive to verbal Psych: Alert [x]yes []no Oriented []x0 []x1 []x2 [x]x3 / Affect []Normal []Flat []Agitated [x]Calm []Sedated [x]NAD BMP: Recent Labs 02/27/19 1545 03/01/19 0015 03/01/19 1621 03/02/19 0105 NA 140 < > 140 -- 132* 135 K 4.2 < > 5.7* < > 5.5* 5.0 CL 110* < > 108* -- 102 104 CO2 19* < > 22 -- 20* 22 BUN 25* < > 32* -- 33* 32* CREATININE 1.17 < > 1.63* -- 1.40* 1.24 GLUCOSE 160* < > 90 -- 293* 253* PHOS 3.3 -- -- -- -- -- < > = values in this interval not displayed. . Ionized Calcium: Lab Results Component Value Date IONCA 5.50 02/27/2019 Hepatic: No results for input(s): AST, ALT, ALB, BILITOT, ALKPHOS in the last 72 hours. Troponin: No results for input(s): TROPONINI in the last 72 hours. Lactate: No results found for: LACTA ABG: Recent Labs 02/27/19 1545 PHART 7.274* [id number] 46.0* PO2ART 270.6* [id number] 98.8 CBC: Recent Labs 03/01/19 0015 03/02/19 0105 WBC 17.8* 18.8* HGB 11.1* 11.0* PLT 151 169 CK: No results for input(s): CKTOTAL in the last 72 hours. BNP: No results for input(s): NTPROBNP in the last 72 hours. INR: Recent Labs 02/27/19 1545 INR 1.3* CORTISOL: No results for input(s): CORTISOL in the last 72 hours. TSH: No results for input(s): TSH in the last 72 hours. PROCALCITONIN: No results for input(s): PROCAL in the last 72 hours. LIPIDS: No results for input(s): CHOL, HDL in the last 72 hours. Invalid input(s): LDLCALCU UA: No results for input(s): NITRITE, COLORU, PHUR, LABCAST, WBCUA, RBCUA, MUCUS, TRICHOMONAS, YEAST, BACTERIA, CLARITYU, SPECGRAV, LEUKOCYTESUR, UROBILINOGEN, BILIRUBINUR, BLOODU, GLUCOSEU, AMORPHOUS inthe last 72 hours. Invalid input(s): KETONESU Cultures: No results for input(s): LABURIN in the last 72 hours. No results for input(s): BC in the last 72 hours. No results for input(s): BLOODCULT2 in the last 72 hours. No results for input(s): CULTRESP in the last 72 hours. No results for input(s): CXCATHTIP in the last 72 hours. No results for input(s): LEGUR in the last 72 hours. Invalid input(s): STREPPNEUMAGU No results for input(s): LABGRAM in the last 72 hours. Films: CXR portable: Results for orders placed during the hospital encounter of 02/22/19 XR CHEST PORTABLE Narrative Patient Name: CHRISTY GURROLA ---Diagnostic Radiology--- Exam Date/Time 03/01/2019 07:10:13 EST Exam CR Chest Portable Ordering Physician GRANT TAYLOR Accession Number [id number] CPT4 Codes 19316 () Reason For Exam sob Report CLINICAL INFORMATION: Shortness of breath. Status post open heart surgery. CHEST X-RAY, PORTABLE, 0537 hours: An AP portable view is compared to the prior examination of previous day. There is no change in the mediastinal or left lower hemithorax chest tubes or right internal jugular Milliken-Jose introducer sheath. There is stable slightly limited lung volumes. No pneumothorax or other acute process or interval change identified. Report Dictated on --- Final --- Dictated: 03/01/2019 7:23 am Dictating Physician: MD JIMENEZ HARLAN Signed Date and Time: 03/01/2019 7:25 am Signed by: MD JIMENEZ HARLAN Transcribed Date and Time: 03/01/2019 7:23 Assessment and Plan: 1. S/P CABG X 3, doing well, ASA, statin, Metoprolol. 1. Chest tube mgmt per CTS 2. Respiratory: off vent 02/27, complains of chest congestion, was actively smoking prior to admission. CXR is stable. Cough is non-productive, patient actively ambulating moderate distances. 1. Add Duoneb QID 2. Continue ambulation, activity, IS. 3. Bronchopulmonary hygiene. 3. Hyperkalemia improved 1. Monitor; give kayexelate if increased later today due to rising BUN/cr 2. Alberts out 3. DM2: glucoses are higher (300s) 4. Mgmt per endocrinology, insulin drip is off now 4. Anemia: acute blood loss 1. H/h stable 5. Leukocytosis: stress response, would recommend hematology consult if no improvement in next few days - surveillance cultures recommended if temp > 100.4F. 6. CKD stage 3, Cr has normalized 1. Monitor, maintain MAP >65-70, avoid intravascular fluid depletion Case discussed with CLINICAL DATA SPECIALIST from [facility], (Mauricio) Critical care will sign off for now. Patient is telemetry status. Pls call if additional input is needed; thanks for the consult. Prophylaxis: Stress ulcer: [x] PPI Agent [] H2RA [] Sucralfate [] Other: VTE: [] Enoxaparin [x] SC Heparin [] SCD Full Code Excluding procedures, the total critical care time caring for this patient with lifethreatening, unstable organ failure, including direct patient contact, review of medical record, management of lifesupport systems, review of data including imaging and labs, discussions with other team members, patient'sfamily and physicians at least 35 minutes so far today. * Mauricio Encinas, ADMISSION NURSE - ANALYTICS DIRECTOR - 03/02/2019 4:05 AM EST Cardiothoracic Surgery Progress Note 03/02/2019 Subjective: Admit Date: 02/22/2019 PCP: LIANET PETERS Interval History: Hyperkalemia improved: 5.0 today; still with leukocytosis afebrile-no signs of infections noted. 02/27-CABGx3 Subjective: Up in chair. Had a good night. No BM today but feels as though she is going to go. POD 3 today. SCr decreasing. Breathing better since chest tubes are out. Concerned about SOB she has been having with walking. Currently of O2. Just returned from walking and is sating 93%. Will review CXR this morning. Objective: Vitals: Temp (24hrs), Av.3 F (36.8 C), Min:97.7 F (36.5 C), Max:98.8 F (37.1 C) BP (!) 136/121 Pulse 110 Temp 97.7 F (36.5 C) (Oral) Resp 18 Ht 5' 1 (1.549 m) Wt 182 lb11.2 oz (82.9 kg) SpO2 97% BMI 34.52 kg/m I/O: Patient Vitals for the past 96 hrs (Last 3 readings): Weight 03/01/19 0600 182 lb 11.2 oz (82.9 kg) 02/27/19 0610 176 lb (79.8 kg) Labs: BMP: Recent Labs 03/01/19 0015 03/01/19 1621 03/02/19 0105 NA 140 -- 132* 135 K 5.7* < > 5.5* 5.0 CL 108* -- 102 104 CO2 22 -- 20* 22 BUN 32* -- 33* 32* CREATININE 1.63* -- 1.40* 1.24 GLUCOSE 90 -- 293* 253* < > = values in this interval not displayed. CBC: Recent Labs 03/01/19 0015 03/02/19 0105 WBC 17.8* 18.8* HGB 11.1* 11.0* PLT 151 169 Physical Exam Vitals signs and nursing note reviewed. Constitutional: Appearance: Normal appearance. She is not diaphoretic. Interventions: Nasal cannula in place. HENT: Head: Normocephalic and atraumatic. Eyes: Pupils: Pupils are equal, round, and reactive to light. Cardiovascular: Rate and Rhythm: Normal rate and regular rhythm. Pulses: Radial pulses are 2+ on the right side and 2+ on the left side. Dorsalis pedis pulses are 2+ on the right side and 2+ on the left side. Heart sounds: Normal heart sounds, S1 normal and S2 normal. No murmur. No S3 or S4 sounds. Pulmonary: Effort: Pulmonary effort is normal. Breath sounds: Decreased breath sounds present. No wheezing, rhonchi or rales. Comments: Coarse breath sounds clears with coughing Chest: Chest wall: No tenderness. Abdominal: General: Bowel sounds are normal. There is no distension. Palpations: Abdomen is soft. Abdomen is not rigid. There is no shifting dullness or mass. Tenderness: There is no tenderness. There is no guarding or rebound. Skin: General: Skin is warm and dry. Capillary Refill: Capillary refill takes less than 2 seconds. Coloration: Skin is not pale. Findings: No erythema or rash. Comments: Midsternal Incision: surgical dressing clean dry with no drainage noted. Surrounding skinno redness, warmth, or signs of infection noted. Chest Tube Sites: dry occlusive dressing in place, no warmth, redness, or signs of infection noted. Neurological: Mental Status: She is alert. Psychiatric: Behavior: Behavior is cooperative. Medications: Scheduled Meds: heparin (porcine) 5,000 Units Subcutaneous BID insulin glargine 45 Units Subcutaneous Daily insulin lispro 6 Units Subcutaneous TID WC insulin lispro 0-12 Units Subcutaneous TID WC metoprolol tartrate 25 mg Oral BID pantoprazole 40 mg Oral QAM AC FLUoxetine 20 mg Oral Daily sodium chloride flush 10 mL Intravenous 2 times per day sennosides-docusate sodium 1 tablet Oral BID polyethylene glycol 17 g Oral Daily mupirocin Nasal BID atorvastatin 80 mg Oral Nightly aspirin 81 mg Oral Daily Continuous Infusions: dextrose sodium chloride 20 mL/hr at 02/28/19 0730 Home Meds: Prior to Admission medications Medication Sig Start Date End Date Taking? Authorizing Provider aspirin 81 MG tablet Take 1 tablet by mouth daily 02/16/06 Yes Historical Provider, quinapril (ACCUPRIL) 20 MG tablet Take 1 tablet by mouth daily 06/15/06 Yes Historical Provider, FLUoxetine (PROZAC) 20 MG capsule Take 1 capsule by mouth daily 02/16/06 Historical Provider, metFORMIN (GLUCOPHAGE) 500 MG tablet Take 1 tablet by mouth nightly 06/30/06 Historical Provider, Diet: Dietary Nutrition Supplements: Diabetic Oral Supplement DIET CARDIAC; Assessment and Plan: CAD/HTN-S/P CABGx3 (GIRALDO to LAD, V to OM2, V to PDA of RCA) EVH and DONNELL on 02/27/19: Negative fluid balance for stay weight up 6lbs- await CXR may add gentle diuresis; WILLARD improving; no BM discussed MOM/mag citrate will hold off for now. EF: 45% [facility]; intraop DONNELL pending-02/27 POD # 3 Core Medication: ASA, statin, BB, no ACEi currently WILLARD Invasive Lines: Central Line: Day #3 DVT prohy: SCDs/TEDs heparin sq Acute Post-operative Pulmonary Management: [x] Normal Post-operative course: Increase activity, Encourage pulmonary hygiene: Acapella,IS, C&DB. WILLARD: Scr baseline ~1.05 from labs-1.24 today down from high of 1.63; avoid nephrotoxic agents. UO last 24hrs-->800 + unmeasured void; Continue to monitor avoid hypotensive events. DM type II/Stress hyperglycemia: HgA1C 10.3: Insulin management per Endocrinology Current inpatient regimen: subcutaneous insulin Current discharge recommendations: TBD: likely home on insulin pens Depression: on prozac; continue to monitor. Discharge planning: telemetry status PT/OT recs: home with home health Planned Disposition: patient from [facility]; home when medically stable [x] Home with home health Initial Post op RBC Transfusion (Blood conservation log): none noted to date DIANA Dial CNP * Heather Zhang, OT - 03/01/2019 3:07 PM EST Occupational Therapy Occupational Therapy Initial Assessment Date: 03/01/2019 Patient Name: Christy Gurrola : 1950 Date of Service: 03/01/2019 Discharge Recommendations: Home with assist PRN Assessment Performance deficits / Impairments: Decreased functional mobility ;Decreased balance;Decreased ADL status;Decreased strength;Decreased endurance Assessment: OT eval completed. Pt currently requires min assist for sit to stand transitions, but supv for ambulation. Pt reports that she has a lift chair, hospital bed, and toilet riser at home. She will also have family assist as needed. Recommend discharge home with family assist as needed at discharge. Prognosis: Good Decision Making: Low Complexity REQUIRES OT FOLLOW UP: Yes Activity Tolerance Activity Tolerance: Patient Tolerated treatment well Safety Devices Safety Devices in place: Yes Type of devices: All fall risk precautions in place Restraints Initially in place: No Patient Diagnosis(es): There were no encounter diagnoses. has a past medical history of Arthritis, Blood circulation, collateral, CAD in [place] artery, Diabetes mellitus (HCC), HFrEF (heart failure with reduced ejection fraction) ([facility]LY [facility]), and Hypertension. has a past surgical history that includes joint replacement and Cholecystectomy. Restrictions Restrictions/Precautions Restrictions/Precautions: ( (3 chest tubes, catheter, IV, telemetry )) Required Braces or Orthoses?: No Position Activity Restriction Sternal Precautions: No Pushing, No Pulling, 10# Lifting Restrictions Sternal Precautions: yes Other position/activity restrictions: telemetry; 2LO2 NC Subjective General Chart Reviewed: Yes Patient assessed for rehabilitation services?: Yes Family / Caregiver Present: No Diagnosis: Pt admitted with CAD; now s/p CABG X 3 Subjective Subjective: Pt sitting up in bedside chair; agreeable to OT. Reports feeling a bit better today. Patient Currently in Pain: No(Pt did not complain of pain during session) Social/Functional History Social/Functional History Lives With: Spouse Type of Home: House Home Layout: One level Home Access: Stairs to enter with rails Entrance Stairs - Number of Steps: 2 Entrance Stairs - Rails: Both Bathroom Shower/Tub: Tub/Shower unit Bathroom Toilet: Standard Bathroom Equipment: Grab bars in shower, Shower chair, Grab bars around toilet Bathroom Accessibility: Accessible Receives Help From: Family ADL Assistance: Independent Homemaking Assistance: Independent Homemaking Responsibilities: Yes Ambulation Assistance: Independent Transfer Assistance: Independent Active Chief Growth Officer: Yes Mode of Transportation: Car 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 [employer] Leisure & Hobbies: making candies, breads Objective Vision: Within Functional Limits Hearing: Within functional limits Orientation Overall Orientation Status: Within Normal Limits Observation/Palpation Posture: Fair Balance Standing Balance: Supervision Functional Mobility Activity: To/from bathroom Assist Level: Supervision Toilet Transfers Equipment Used: Standard toilet Toilet Transfer: Supervision ADL LE Dressing: Minimal assistance Toileting: Supervision Tone RUE RUE Tone: Normotonic Tone LUE LUE Tone: Normotonic Coordination Movements Are Fluid And Coordinated: Yes Transfers Sit to stand: Minimal assistance Stand to sit: Minimal assistance Cognition Overall Cognitive Status: WNL Sensation Overall Sensation Status: WNL LUE AROM (degrees) LUE AROM : WFL LUE General AROM: within sternal precautions RUE AROM (degrees) RUE AROM : WFL RUE General AROM: within sternal precautions LUE Strength LUE Strength Comment: good hand molder strength RUE Strength RUE Strength Comment: good hand molder strength Plan Plan Times per week: 3-5 times per week Plan weeks: 2 weeks Current Treatment Recommendations: Strengthening, Endurance Training, Patient/Caregiver Education & Training, Self-Care / ADL, Equipment Evaluation, Education, & procurement, Balance Training, Functional Mobility Training, Safety Education & Training Plan Comment: Pt follows sternal precautions without reminders. AM-PAC Score AM-PAC Inpatient Daily Activity Raw Score: 21 (03/01/19 144) AM-PAC Inpatient ADL T-Scale Score : 44.27 (03/01/19 144) ADL Inpatient CMS 0-100% Score: 32.79 (03/01/19 144) ADL Inpatient CMS G-Code Modifier : CJ (03/01/191444) Goals Short term goals Time Frame for Short term goals: 2 weeks Short term goal 1: Toilet transfer modified indep Short term goal 2: Toileting modified indep Short term goal 3: Upper and lower body ADLs at modified indep level Short term goal 4: Dynamic standing balance X 2-3 mins during functional task at modified indep level Patient Goals Patient goals : to return home at discharge Therapy Time Individual Concurrent Group Co-treatment Time In 1420 Time Out 1435 Minutes 15 Patient's Occupational Therapy Plan of Care supervision is transferred to [facility] Occupational Therapist. Goals and/or treatment plan was established in collaboration with patient/family/other representatives. Heather Zhang, OTR/L * Jos Baker, FUEL TANK SEALER AND TESTER - 03/01/2019 1:48 PM EST Physical Therapy Facility/Department: [facility] Daily Treatment Note NAME: Christy Gurrola : 1950 Date of Service: 03/01/2019 Discharge Recommendations: Home independently PT Equipment Recommendations Other: tbd Assessment Body structures, Functions, Activity limitations: Decreased functional mobility ;Decreased strength;Decreased endurance;Decreased balance Assessment: pt limited by decreased functional strength/endurance and impaired dynamic balance w/o device. pt able to perform ther ex w/ no c/o increased pain today. pt able to increase overall gait distance using rollator today; x4 stand rest breaks d/t fatigue. pt should progress to Home post Disch. Specific instructions for Next Treatment: functional strength/endurance training. Prognosis: Good Decision Making: Medium Complexity REQUIRES PT FOLLOW UP: Yes Activity Tolerance Activity Tolerance: Patient limited by fatigue;Patient limited by endurance Activity Tolerance: pt rated exertion at 16/20 post gait/stair trial. Patient Diagnosis(es): There were no encounter diagnoses. has a past medical history of Arthritis, Blood circulation, collateral, CAD in [place] [place] artery, Diabetes mellitus (HCC), HFrEF (heart failure with reduced ejection fraction) ([facility]), and Hypertension. has a past surgical history that includes joint replacement and Cholecystectomy. Restrictions Restrictions/Precautions Restrictions/Precautions: (3 chest tubes, catheter, IV, telemetry ) Required Braces or Orthoses?: No Position Activity Restriction Sternal Precautions: No Pushing, No Pulling, 10# Lifting Restrictions Sternal Precautions: yes Other position/activity restrictions: telemetry; 2LO2 NC Subjective General Chart Reviewed: Yes Response To Previous Treatment: Patient with no complaints from previous session. Family / Caregiver Present: Yes Subjective Subjective: pt in chair, agreeable to PT. nsg cleared pt for PT. Pain Screening Patient Currently in Pain: No(pt had no c/o pain pre or post Rx. ) Pain Assessment Clinical Progression: Not changed Vital Signs Patient Currently in Pain: No(pt had no c/o pain pre or post Rx. ) Orientation Orientation Overall Orientation Status: Within Normal Limits Cognition Objective Transfers Sit to Stand: Minimal Assistance Stand to sit: Contact guard assistance Comment: x1 from chair; good compliance w/ sternal precautions. Ambulation Ambulation?: Yes WB Status: sternal precautions. More Ambulation?: No Ambulation 1 Surface: level tile Device: Rollator Other Apparatus: O2 Assistance: Stand by assistance Quality of Gait: slow but steady bonnie. Gait Deviations: Slow Bonnie;Decreased step length Distance: 120' x4 Comments: x4 stand rest break d/t fatigue. Stairs/Curb Stairs?: Yes Stairs # Steps : 4 Stairs Height: 6 Rails: Left ascending Device: No Device Assistance: Contact guard assistance Comment: step-to gait pattern ascend/descend Exercises Knee Long Arc Quad: x5 rep ea LE Ankle Pumps: x15 rep BLE Upper Extremity: P&C Ex #1-9 x5 rep ea Comments: pt encoruaged to perform Ex on own throughout day. G-Code OutComes Score AM-[facility] Score [facility] Inpatient Mobility Raw Score : 15 (03/01/191346) [facility] Inpatient T-Scale Score : 39.45 (03/01/191346) Mobility Inpatient CMS 0-100% Score: 57.7 (03/01/191346) Mobility Inpatient [facility] G-Code Modifier : CK (03/01/191346) Goals Short term goals Time Frame for Short term goals: 2 weeks Short term goal 1: Ambulate 200 feet x1 independently; PROGRESSING Short term goal 2: Transfers independently ; PROGRESSING Short term goal 3: Ascend/descend 2 steps independently ; PROGRESSING Short term goal 4: Perform walking program and P&C exercises independently ; PROGRESSING Patient Goals Patient goals : to get home Plan Plan Times per week: 5-7 Plan weeks: 2 weeks Specific instructions for Next Treatment: functional strength/endurance training. Current Treatment Recommendations: Strengthening, Transfer Training, Endurance Training, Patient/Caregiver Education & Training, Equipment Evaluation, Education, & procurement, Home Exercise Program, Functional Mobility Training, Balance Training, ROM, Safety Education & Training Plan Comment: Cont PT POC Safety Devices Type of devices: All fall risk precautions in place, Call light within reach, Gait belt, Left in chair, Nurse notified Therapy Time Individual Concurrent Group Co-treatment Time In 1158 Time Out 1222 Minutes 24 Timed Code Treatment Minutes: 24 Minutes(FA x1; GT x1) Jos Baker PTA * Chantell Conrad MD - 03/01/2019 10:53 AM EST [facility] [address] [id number] Dept: [phone] Loc: [phone] Visit Date: 03/01/2019 HPI: Christy Gurrola is a 69 y.o. female who presents today for: No chief complaint on file. HPI: Chief complaint: cp reason for consult: dm Poor appetite No sob No chest pain Soreness post surgery No nausea No abd pain Took metformin at home but does know how to give insulin injections via pen Past Medical History: Diagnosis Date Arthritis Blood circulation, collateral CAD in [place] artery 02/22/2019 Diabetes mellitus (HCC) HFrEF (heart failure with reduced ejection fraction) (HCC) Hypertension Past Surgical History: Procedure Laterality Date CHOLECYSTECTOMY JOINT REPLACEMENT Current Facility-Administered Medications Medication Dose Route Frequency Provider Last Rate Last Dose heparin (porcine) injection 5,000 Units 5,000 Units Subcutaneous BID DIANA Dial ANALYTICS DIRECTOR 5,000 Units at 03/01/19 0856 metoprolol tartrate (LOPRESSOR) tablet 25 mg 25 mg Oral BID Lukas DIANA Moise DESIGN/ANIMATION INSTRUCTOR 25 mg at 856 pantoprazole (PROTONIX) tablet 40 mg 40 mg Oral QAM AC DIANA Moore DESIGN/ANIMATION INSTRUCTOR 40 mg at 03/01/19 0709 FLUoxetine (PROZAC) capsule 20 mg 20 mg Oral Daily Lukas DIANA Moise 20 mg at 03/01/19 0856 0.45 % sodium chloride infusion Intravenous Continuous Grant Taylor MD 20 mL/hr at 02/28/19 0730 sodium chloride flush 0.9 % injection 10 mL 10 mL Intravenous 2 times per day Grant Taylor MD 10mL at 03/01/19 0856 sodium chloride flush 0.9 % injection 10 mL 10 mL Intravenous PRN Grant Taylor MD magnesium sulfate 2 g in 50 mL IVPB premix 2 g Intravenous PRN Grant Taylor MD calcium gluconate 2 g in sodium chloride 0.9 % 100 mL IVPB 2 g Intravenous PRN Grant Taylor MD acetaminophen (TYLENOL) tablet 500 mg 500 mg Oral Q4H PRN Grant Taylor MD 500 mg at 02/28/19 1521 oxyCODONE-acetaminophen (PERCOCET) 5-325 MG per tablet 1 tablet 1 tablet Oral Q6H PRN Grant Taylor MD 1 tablet at 02/28/19 1104 Or oxyCODONE-acetaminophen (PERCOCET) 5-325 MG per tablet 2 tablet 2 tablet Oral Q6H PRN Grant Taylor MD 2 tablet at 03/01/19 0856 sennosides-docusate sodium (SENOKOT-S) 8.6-50 MG tablet 1 tablet 1 tablet Oral BID Grant Taylor MD 1 tablet at 03/01/19 0856 polyethylene glycol (GLYCOLAX) packet 17 g 17 g Oral Daily Grant Taylor MD 17 g at 03/01/19 0856 bisacodyl (DULCOLAX) suppository 10 mg 10 mg Rectal Daily PRN Grant Taylor MD ondansetron (ZOFRAN) injection 4 mg 4 mg Intravenous Q8H PRN Grant Taylor MD mupirocin (BACTROBAN) 2 % ointment Nasal BID Grant Taylor MD atorvastatin (LIPITOR) tablet 80 mg 80 mg Oral Nightly Grant Taylor MD 80 mg at 02/28/19 2018 aspirin EC tablet 81 mg 81 mg Oral Daily Grant Taylor MD 81 mg at 03/01/19 0856 insulin regular (HUMULIN R;NOVOLIN R) 100 Units in sodium chloride 0.9 % 100 mL infusion 1 Units/hrIntravenous Continuous Grant Taylor MD 4.5 mL/hr at 03/01/19 1005 4.5 Units/hr at 03/01/19 1005 glucose (GLUTOSE) 40 % oral gel 15 g 15 g Oral PRN Grant Taylor MD dextrose 50 % IV solution 12.5 g Intravenous PRN Grant Taylor MD glucagon (rDNA) injection 1 mg 1 mg Intramuscular PRN Grant Taylor MD dextrose 5 % solution 100 mL/hr Intravenous PRN Grant Taylor MD HYDROmorphone (DILAUDID) injection 0.5 mg 0.5 mg Intravenous Q4H PRN Grant Taylor MD 0.5 mg at 02/28/19 1315 insulin regular (HUMULIN R;NOVOLIN R) injection 4 Units 4 Units Subcutaneous PRN Grant Taylor MD4 Units at 02/28/197 propylene glycol-glycerin (artificial tears) 1-0.3 % ophthalmic solution SOLN 1 drop 1 drop Both Eyes Q2H PRN Grant Taylor MD 1 drop at 02/27/19 2348 Allergies Allergen Reactions Cefazolin Hives and Shortness Of Breath Codeine Hives and Shortness Of Breath Morphine Hives and Shortness Of Breath Naloxone Hives and Shortness Of Breath Talwin [Pentazocine] Hives and Shortness Of Breath No family history on file. Social History Tobacco Use Smoking status: Not on file Substance Use Topics Alcohol use: Not on file Subjective: Review of Systems Constitutional: Positive for activity change (improving), appetite change (poor) and fatigue. Respiratory: Negative for cough, shortness of breath and wheezing. Cardiovascular: Negative for palpitations. Gastrointestinal: Negative for abdominal pain, nausea and vomiting. Objective: BP 123/63 Pulse 97 Temp 98.8 F (37.1 C) (Oral) Resp 19 Ht 5' 1 (1.549 m) Wt 182 lb 11.2 oz (82.9 kg) SpO2 94% BMI 34.52 kg/m Physical Exam Constitutional: Appearance: She is well-developed and well-nourished. HENT: Head: Normocephalic and atraumatic. Cardiovascular: Rate and Rhythm: Normal rate and regular rhythm. Heart sounds: S1 normal and S2 normal. No murmur. No friction rub. Pulmonary: Effort: Pulmonary effort is normal. No respiratory distress. Breath sounds: Normal breath sounds. No stridor. No wheezing or rales. Diagnostic Workup: Results for CHRISTY GURROLA ( ) as of 03/01/2019 10:54 Ref. Range 03/01/2019 06:02 03/01/2019 07:12 03/01/2019 07:38 03/01/2019 09:05 03/01/2019 10:01 POC Glucose Latest Ref Range: 70 - 100 mg/dL 165 (H) 153 (H) 149 (H) 111 (H) 95 Results for CHRITSY GURROLA ( ) as of 03/01/2019 10:54 Ref. Range 03/01/2019 00:15 Creatinine Latest Ref Range: 0.52 - 1.25 mg/dL 1.63 (H) Results for CHRISTY GURROLA ( ) as of 03/01/2019 10:54 Ref. Range 02/25/2019 06:03 Hemoglobin A1C Latest Ref Range: 4.0 - 5.7 % 10.3 (H) Assessment: Type 2 DM with hyperglycemia with fci insulin use s/p cabg 02/27 Will likely need insulin therapy for home given current needs elevvated creatinine and A1c Plan: Explained all of recommendations below to patient/care team, reviewed all of labs above with them as well: Discussed with patient sources of variability in blood glucose levels Discussed with patient detection, monitoring, management, and prevention of hypoglycemia Discussed with patient diet modification and approach to diabetes management Encourage intake Discussed with patient challenges of inpatient care of diabetes Discussed with patient inpatient guidelines and goals for diabetes treatment Discussed with patient potential side effects metformin Switch to subcutaneous insulin now, anticipate home on insulin pens Time spent with patient 30 minutes with more than 51% of that time in direct face to face counseling as documented in note. I have reviewed previous notes, referral note, andprevious workup. No follow-ups on file. Chantell Conrad MD * Mauricio Encinas, ADMISSION NURSE - ANALYTICS DIRECTOR - 03/01/2019 9:51 AM EST Cardiothoracic Surgery Interval Note 03/01/2019 9:51 AM Intervention Significant Event Patient:Christy Gurrola/1950,(69 y.o.), female Vitals: Pulse: 97 Pulse: [89-98] BP: 123/63 Temp: 98.8 F (37.1 C) Resp: 19 SpO2: 94 % Intervention/Significant Event -Chest tubes assessed: no air leak, subcutaneous air noted. Chest tubes removed without difficulty and dressing applied. Patient tolerated well. Patient and nurse educated on possible complications to observe for. Will continue to monitor. * Oren Adams MD - 03/01/2019 8:56 AM EST Critical Care Progress Note 03/01/2019 8:57 AM Subjective: Admit Date: 02/22/2019 PCP: LIANET PETERS No chief complaint on file. Interval History: 69 yo f with CAD s/p 3-CABG, hyperkalemia, DM2, anemia, leukocytosis, CKD3, HFrEF. Extubated 02/27 uneventfully, on 2 LPM O2 03/01, recovering well. Review of Systems Pain well controlled, is OOB to chair, eating, able to stand, walked 2 laps in [facility] yesterday. No dyspnea, minimal cough productive of clear sputum, voice is recovering after extubation 02/27, is on 2 LPM O2. No h/o COPD at baseline. Diet:DIET FULL LIQUID; Dietary Nutrition Supplements: Diabetic Oral Supplement Medications: Scheduled Meds: heparin (porcine) 5,000 Units Subcutaneous BID metoprolol tartrate 25 mg Oral BID pantoprazole 40 mg Oral QAM AC FLUoxetine 20 mg Oral Daily sodium chloride flush 10 mL Intravenous 2 times per day sennosides-docusate sodium 1 tablet Oral BID polyethylene glycol 17 g Oral Daily mupirocin Nasal BID atorvastatin 80 mg Oral Nightly aspirin 81 mg Oral Daily Continuous Infusions: sodium chloride 20 mL/hr at 02/28/19 0730 insulin 5.5 Units/hr (03/01/19 0713) dextrose is on metformin alone at home for her diabetes. Objective: Vitals: Temp (24hrs), Av.1 F (36.7 C), Min:97.5 F (36.4 C), Max:98.8 F (37.1 C) BP 123/63 Pulse 97 Temp 98.8 F (37.1 C) (Oral) Resp 19 Ht 5' 1 (1.549 m) Wt 182 lb 11.2 oz (82.9 kg) SpO2 94% BMI 34.52 kg/m I/O: 02/28 0701 - 03/01 0700 In: 1352 [I.V.:1352] Out: 2167 [Urine:1910] CVP: CVP (Mean): 10 mmHg Invasive Lines: RIJ swan introducer (swan out), last readings 02/27; 2 mediastinal and L chest tubes drained 257cc total past 24h Ventilator Settings: on 02/27, extubated 02/28, now on 2 LPM O2. Vent Mode: PS Rate Set: 14 bmp Vt Ordered: 500 mL Pressure Support: 0 cmH20 PEEP/CPAP: 8 FiO2 : 50 % Physical Exam General Appearance: []WDWN [x]Obese []Cachectic []Thin []ill Skin: Temperature [x]Warm []Cool / Rash []Yes []No / Tattoo(s) []Yes []No Heent: Pupils round and react [x]Yes []No Sclera []Icteric []Non-Icteric Conjunctiva []Injected [x]Non-Injected / Pinnae []Normal []Other/ Dentitian []Anvik Teeth []Dentures Oral Mucosa []Davie [x]Moist []Dry/ Oral ETT []Present [x]Absent Neck: Trachea midline [x]Yes []No/ Thyromegaly []Yes [x]No/ Crepitus []Present [x]Absent /Jvd []Present [x]Absent Lungs: []Clear [x]Crackles few, R base; IS 500cc []Wheezes []Rhonchi / Respiratory effort []Labored [x]Non-Labored Heart: [x]RRR []Irregularly Irregular []murmur present []murmur absent/ Peripheral Edema [x]Absent []Present Abdomen: [x]Soft Bowel Sounds [x]Present []Absent []Diminished []Hyperactive []Hypoactive []Tender [x]Non-Tender []Distended [x]Non-distended / Hernia []Present []Absent / Organomegaly [x]Absent []Present/ []Scar Extremities: Cyanosis []Present [x]Absent/ FERG[place] ([]RUE []RLE []LUE []LLE) Neurologic: [place] []Yes [x]No Corneal reflexes []Present []Absent / Plantar reflexes []Up [x]Down []Absent / Withdraws to tactile [x]Yes []No/ Follows Commands [x]Yes []No []Unresponsive to verbal Psych: Alert [x]yes []no Oriented []x0 []x1 []x2 [x]x3 / Affect []Normal []Flat []Aggitated [x]Calm []Sedated [x]NAD BMP: Recent Labs 02/27/19 1545 02/28/19 0500 02/28/19 1207 03/01/19 0015 03/01/19 0437 NA 140 < > 139 -- 141 140 -- K 4.2 < > 7.0* < > 4.7 5.7* 5.4* CL 110* < > 110* -- 109* 108* -- CO2 19* < > 21* -- 18* 22 -- BUN 25* < > 25* -- 25* 32* -- CREATININE 1.17 < > 1.18 -- 1.35* 1.63* -- GLUCOSE 160* < > 115* -- 127* 90 -- PHOS 3.3 -- -- -- -- -- -- < > = values in this interval not displayed. . Ionized Calcium: Lab Results Component Value Date IONCA 5.50 02/27/2019 Hepatic: No results for input(s): AST, ALT, ALB, BILITOT, ALKPHOS in the last 72 hours. Troponin: No results for input(s): TROPONINI in the last 72 hours. Lactate: No results found for: LACTA ABG: Recent Labs 02/27/19 1545 PHART 7.274* UGO7ZUN 46.0* PO2ART 270.6* T1ATYXWS 98.8 CBC: Recent Labs 02/28/19 0404 03/01/19 0015 WBC 18.8* 17.8* HGB 11.4* 11.1* PLT 160 151 CK: No results for input(s): CKTOTAL in the last 72 hours. BNP: No results for input(s): NTPROBNP in the last 72 hours. INR: Recent Labs 02/26/19 1242 02/27/19 1545 INR 1.0 1.3* CORTISOL: No results for input(s): CORTISOL in the last 72 hours. TSH: No results for input(s): TSH in the last 72 hours. PROCALCITONIN: No results for input(s): PROCAL in the last 72 hours. LIPIDS: No results for input(s): CHOL, HDL in the last 72 hours. Invalid input(s): LDLCALCU UA: Recent Labs 02/26/19 1251 COLORU Light-Yellow WBCUA 0-2 RBCUA 0-2 BACTERIA Negative LEUKOCYTESUR 25 UROBILINOGEN Normal BILIRUBINUR Negative GLUCOSEU 300 Cultures: No results for input(s): LABURIN in the last 72 hours. No results for input(s): BC in the last 72 hours. No results for input(s): BLOODCULT2 in the last 72 hours. No results for input(s): CULTRESP in the last 72 hours. No results for input(s): CXCATHTIP in the last 72 hours. No results for input(s): LEGUR in the last 72 hours. Invalid input(s): STREPPNEUMAGU No results for input(s): LABGRAM in the last 72 hours. Films: CXR portable: Results for orders placed during the hospital encounter of 02/22/19 XR CHEST PORTABLE Narrative Patient Name: CHRISTY GURROLA ---Diagnostic Radiology--- Exam Date/Time 03/01/2019 07:10:13 EST Exam CR Chest Portable Ordering Physician GRANT TAYLOR Accession Number [id number] CPT4 Codes 81528 () Reason For Exam sob Report CLINICAL INFORMATION: Shortness of breath. Status post open heart surgery. CHEST X-RAY, PORTABLE, 0537 hours: An AP portable view is compared to the prior examination of previous day. There is no change in the mediastinal or left lower hemithorax chest tubes or right internal jugular Milliken-Jose introducer sheath. There is stable slightly limited lung volumes. No pneumothorax or other acute process or interval change identified. Report Dictated on --- Final --- Dictated: 03/01/2019 7:23 am Dictating Physician: MD JIMENEZ HARLAN Signed Date and Time: 03/01/2019 7:25 am Signed by: MD JIMENEZ HARLAN Transcribed Date and Time: 03/01/2019 7:23 Assessment and Plan: 1. S/P CABG X 3, doing well, ASA, statin, Metoprolol. 1. Chest tube mgmt per CTS 2. Respiratory: off vent 02/27, now on 2 LPM nasal O2, doing well, slightly low lung volumes on CXR 1. increase activity, IS. 3. Hyperkalemia improved 1. Monitor; give kayexelate if increased later today due to rising BUN/cr 2. Alberts out 4. DMII: insulin dose decreasing 1. Mgmt per endocrinology, now at 5 U/hr 5. Anemia: acute blood loss 1. H/h stable 6. Leukocytosis: stress response, improving, now 17 7. CKD stage 3, BUN/cr rising 1. Monitor, maintain MAP >65-70, avoid intravascular fluid depletion Critical care will sign off for now. Patient is telemetry status. Pls call if additional input is needed; thanks for the consult. Prophylaxis: Stress ulcer: [x] PPI Agent [] H2RA [] Sucralfate [] Other: VTE: [] Enoxaparin [x] SC Heparin [] SCD Full Code Excluding procedures, the total critical care time caring for this patient with lifethreatening, unstable organ failure, including direct patient contact, review of medical record, management of lifesupport systems, review of data including imaging and labs, discussions with other team members, patient'sfamily and physicians at least 35 minutes so far today. * Mauricio Encinas, ADMISSION NURSE - ANALYTICS DIRECTOR - 03/01/2019 4:54 AM EST Cardiothoracic Surgery Progress Note 03/01/2019 Subjective: Admit Date: 02/22/2019 PCP: LIANET PETERS Interval History: adequate UO->30cc/40cc an hour per nsg. Hyperkalemia-->treated with D5 and insulin. Repeat lab sent awaiting results. No ectopy; VSS. On 2LNC. 02/27-CABGx3 Subjective: Overall doing good denies any chest pain currently. Up in bed alert oriented. Throat is a little itchy and sore and she is having a productive cough with sputum production (patient has been swallowing). No issues or concerns at this time. Tolerating liquids; no appetite just yet. Objective: Vitals: Temp (24hrs), Av.9 F (36.6 C), Min:97.5 F (36.4 C), Max:98.2 F (36.8 C) BP 112/67 Pulse 93 Temp 98 F (36.7 C) (Oral) Resp 19 Ht 5' 1 (1.549 m) Wt 176 lb (79.8 kg) SpO2 97% BMI 33.25 kg/m I/O: Date 03/01/19 0000 - 03/01/19 2359 Shift 0498-8075 3836-0767 0967-5290 24 Hour Total INTAKE Shift Total(mL/kg) OUTPUT Urine(mL/kg/hr) 210 210 Chest Tube 12 12 Shift Total(mL/kg) 222(2.8) 222(2.8) Weight (kg) 79.8 79.8 79.8 79.8 Patient Vitals for the past 96 hrs (Last 3 readings): Weight 02/27/19 0610 176 lb (79.8 kg) 02/26/19 0322 177 lb 1.6 oz (80.3 kg) 02/25/19 0609 176 lb 1.6 oz (79.9 kg) Labs: BMP: Recent Labs 02/28/19 0500 02/28/19 1207 03/01/19 0015 NA 139 -- 141 140 K 7.0* < > 4.7 5.7* CL 110* -- 109* 108* CO2 21* -- 18* 22 BUN 25* -- 25* 32* CREATININE 1.18 -- 1.35* 1.63* GLUCOSE 115* -- 127* 90 < > = values in this interval not displayed. CBC: Recent Labs 02/28/19 0404 03/01/19 0015 WBC 18.8* 17.8* HGB 11.4* 11.1* PLT 160 151 INR: Lab Results Component Value Date PROTIME 13.5 02/27/2019 INR 1.3 02/27/2019 Physical Exam Vitals signs and nursing note reviewed. Constitutional: Appearance: Normal appearance. She is not diaphoretic. Interventions: Nasal cannula in place. HENT: Head: Normocephalic and atraumatic. Eyes: Pupils: Pupils are equal, round, and reactive to light. Cardiovascular: Rate and Rhythm: Normal rate and regular rhythm. Pulses: Radial pulses are 2+ on the right side and 2+ on the left side. Dorsalis pedis pulses are 2+ on the right side and 2+ on the left side. Heart sounds: Normal heart sounds, S1 normal and S2 normal. No murmur. No S3 or S4 sounds. Pulmonary: Effort: Pulmonary effort is normal. Breath sounds: Examination of the left-upper field reveals wheezing. Examination of the left-middlefield reveals wheezing. Examination of the right-lower field reveals decreased breath sounds. Examination of the left-lower field reveals decreased breath sounds. Decreased breath sounds, wheezing (expiratory) and rhonchi present. No rales. Chest: Chest wall: No tenderness. Abdominal: General: Bowel sounds are decreased. There is no distension. Palpations: Abdomen is soft. Abdomen is not rigid. There is no shifting dullness or mass. Tenderness: There is no tenderness. There is no guarding or rebound. Genitourinary: Comments: Alberts to straight drain Skin: General: Skin is warm and dry. Capillary Refill: Capillary refill takes less than 2 seconds. Coloration: Skin is not pale. Findings: No erythema or rash. Comments: Midsternal Incision: surgical dressing clean dry with no drainage noted. Surrounding skinno redness, warmth, or signs of infection noted. Chest Tube Sites: dry occlusive dressing in place, no warmth, redness, or signs of infection noted. Neurological: Mental Status: She is alert. Psychiatric: Behavior: Behavior is cooperative. Medications: Scheduled Meds: metoprolol tartrate 25 mg Oral BID pantoprazole 40 mg Oral QAM AC FLUoxetine 20 mg Oral Daily sodium chloride flush 10 mL Intravenous 2 times per day sennosides-docusate sodium 1 tablet Oral BID polyethylene glycol 17 g Oral Daily mupirocin Nasal BID atorvastatin 80 mg Oral Nightly aspirin 81 mg Oral Daily Continuous Infusions: sodium chloride 20 mL/hr at 02/28/19 0730 insulin 2.5 Units/hr (03/01/19 0309) dextrose Home Meds: Prior to Admission medications Medication Sig Start Date End Date Taking? Authorizing Provider aspirin 81 MG tablet Take 1 tablet by mouth daily 02/16/06 Yes Historical Provider, quinapril (ACCUPRIL) 20 MG tablet Take 1 tablet by mouth daily 06/15/06 Yes Historical Provider, FLUoxetine (PROZAC) 20 MG capsule Take 1 capsule by mouth daily 02/16/06 Historical Provider, metFORMIN (GLUCOPHAGE) 500 MG tablet Take 1 tablet by mouth nightly 06/30/06 Historical Provider, Diet: DIET FULL LIQUID; Dietary Nutrition Supplements: Diabetic Oral Supplement Assessment and Plan: CAD/HTN-S/P CABGx3 (GIRALDO to LAD, V to OM2, V to PDA of RCA) EVH and DONNELL on 02/27/19: -hemodynamically stable on current medications. Hyperkalemia-->f/u repeat lab this am. -4L for stay; 1.8L UO/24hrs; diuresised yesterday morning x2 dose of lasix 40mg in am. Bump in SCr noted. Reviewed meds. Slightly higher HR 90's. Likely some pain component. SBP range 112-130; monitor this morning may increase BB. EF: 45% [facility]; intraop DONNELL pending-02/27 POD # 2 Chest Tubes: waterseal: 1-60cc 2-102cc 3-79cc/24hrs: no air leak or fluctuation noted. Likely d/c today. Core Medication: ASA, statin, BB, no ACEi currently WILLARD Invasive Lines: Central Line: Day #2 Alberts: Day #2 DVT prohy: SCDs/TEDs heparin sq Acute Post-operative Pulmonary Management: [x] Normal Post-operative course: Increase activity, Encourage pulmonary hygiene: Acapella,IS, C&DB. On 2LNC continue to wean as able. WILLARD: Scr baseline ~1.05 from labs-1.63 today; avoid nephrotoxic agents. UO last 24hrs-->Continueto monitor avoid hypotensive events. DM type II/Stress hyperglycemia: HgA1C 10.3: Insulin management per Endocrinology Current inpatient regimen: insulin gtt Current discharge recommendations: TBD Depression: on prozac; continue to monitor. Discharge planning: PT/OT recs: home with home health Planned Disposition: patient from [facility]; home when medically stable [x] Home with home health Initial Post op RBC Transfusion (Blood conservation log): none noted to date DIANA Dial CNP * Padma Webster, DIANA Stokes CNP - 02/28/2019 2:12 PM EST INTERVENTIONAL CARDIOLOGY PROGRESS NOTE Chart and interval events reviewed. Reason for Visit CAD s/p CABG SUBJECTIVE: Christy Gurrola states her midsternal CP is improving. States pain meds working. Denies SOB, PND, orthopnea, palpitations, dizziness, bleeding, or edema. Sitting up in chair. SCHEDULEDMEDICATIONS: metoprolol tartrate 25 mg Oral BID [START ON 03/01/2019] pantoprazole 40 mg Oral QAM AC FLUoxetine 20 mg Oral Daily chlorhexidine Topical See Admin Instructions sodium chloride flush 10 mL Intravenous 2 times per day sennosides-docusate sodium 1 tablet Oral BID polyethylene glycol 17 g Oral Daily chlorhexidine 15 mL Mouth/Throat BID mupirocin Nasal BID atorvastatin 80 mg Oral Nightly aspirin 81 mg Oral Daily Active Problems: CAD in [place] artery Diabetes mellitus (HCC) Hypertension HFrEF (heart failure with reduced ejection fraction) ([facility]LY [facility]) Resolved Problems: * No resolved hospital problems. * Review of Systems: Review of Systems Constitutional: Negative for chills, diaphoresis and fever. HENT: Negative for nosebleeds. Eyes: Negative for visual disturbance. Respiratory: Negative for cough, shortness of breath and wheezing. Cardiovascular: Positive for chest pain (midsternal improving with meds). Negative for palpitationsand leg swelling. Gastrointestinal: Negative for abdominal pain, blood in stool, constipation, diarrhea, nausea and vomiting. Genitourinary: Negative for hematuria. Musculoskeletal: Negative for myalgias. Skin: Negative for rash. Neurological: Negative for dizziness and syncope. Hematological: Does not bruise/bleed easily. Psychiatric/Behavioral: Negative for dysphoric mood and suicidal ideas. Denies Depression SIGNS: Vitals: 02/28/19 1000 02/28/19 1100 02/28/19 1200 02/28/19 1300 BP: (!) 144/60 134/65 129/63 104/61 Pulse: 119 114 104 91 Resp: 30 24 23 Temp: 97.9 F (36.6 C) TempSrc: Oral SpO2: 98% 95% 97% 97% Weight: Height: 5' 1 (1.549 m) Intake/Output Summary (Last 24 hours) at 02/28/2019 1412 Last data filed at 02/28/2019 1100 Gross per 24 hour Intake 2220 ml Output 2594 ml Net -374 ml Patient Vitals for the past 96 hrs (Last 3 readings): Weight 02/27/19 0610 176 lb (79.8 kg) 02/26/19 0322 177 lb 1.6 oz (80.3 kg) 02/25/19 0609 176 lb 1.6 oz (79.9 kg) Physical Exam: Physical Exam Constitutional: General: She is not in acute distress. Appearance: Normal appearance. She is well-developed and well-nourished. She is not diaphoretic. HENT: Mouth/Throat: Pharynx: No oropharyngeal exudate. Eyes: General: No scleral icterus. Right eye: No discharge. Left eye: No discharge. Neck: Thyroid: No thyromegaly. Vascular: No JVD. Cardiovascular: Rate and Rhythm: Normal rate and regular rhythm. Chest Wall: PMI is not displaced. Pulses: Normal pulses. Heart sounds: Normal heart sounds. No murmur. No gallop. Pulmonary: Effort: No accessory muscle usage or respiratory distress. Breath sounds: Normal breath sounds. Comments: Midsternal incision D&I CT sites D&I Abdominal: General: Bowel sounds are normal. There is no distension or abdominal bruit. Palpations: Abdomen is soft. There is no shifting dullness or hepatomegaly. Tenderness: There is no tenderness. Musculoskeletal: Normal range of motion. General: No edema. Skin: General: Skin is warm, dry and intact. Neurological: Mental Status: She is alert and oriented to person, place, and time. Data: Scheduled Meds:Reviewed Continuous Infusions: sodium chloride 20 mL/hr at 02/28/19 0730 propofol Stopped (02/27/19 181) phenylephrine (AL-SYNEPHRINE) 50mg/250mL infusion nitroprusside (NIPRIDE) 50 mg in D5W infusion Stopped (02/28/19 0145) insulin 8.5 Units/hr (02/28/19 1107) dextrose CBC: Recent Labs 02/27/19 2100 02/28/19 0404 WBC 16.7* 18.8* HGB 11.2* 11.4* HCT 34.0* 34.8* PLT 143 160 BMP: Recent Labs 02/28/19 0500 02/28/19 0734 02/28/19 1207 NA 139 -- 141 K 7.0* 6.7* 4.7 CL 110* -- 109* CO2 21* -- 18* BUN 25* -- 25* CREATININE 1.18 -- 1.35* INR: Recent Labs 02/26/19 1242 02/27/19 1545 INR 1.0 1.3* EKG: See Report Telemetry Reviewed: SR-ST 90-120s DONNELL: In process Last Echo: [facility] LVEF 45%. Mild MAC with mild MR Last stress test: [facility] NST Stress Induced Ischemia involving portions of the distal anterior, anteroseptal, anteroapical segments Last cardiac catheterization: Multivessel CAD involving prox LAD/LCX and PDA IMPRESSIONS/RECOMMENDATIONS: 1. CAD s/p CABG x 3: GIRALDO to LAD, V to OM2, V to PDA of RCA on 02/27/19 - Stable. Denies angina. Reports midsternal CP improved with prn pain meds. CT in place. Continue ASA, statin, BB, and PPI. Wason ACEi at home, consider add prior to discharge if stable. 2. HTN - BP stable. BB added today per CTS. 3. Hyperkalemia - K+ 7, received lasix, repeat was 6.7, received albuterol and lasix, repeat was 4.7. Per CTS and CCM. 4. Resp insufficiency - Stable. Encourage IS. Chest tube to waterseal per CTS. 5. LV dysfunction/EF 45% - Stable. Denies SOB. Received lasix x 1 today. Continue BB. Recommend resume home ACEi prior to discharge if stable. 6. Tobacco use - Recommend cessation. 7. PAD - PVRs showed mod arterial insufficiency on left. 8. Dispo - Pt lives in [place] and states she intends to follow up with Dr. Anderson or Dr. Cheng upon discharge. Will d/w Dr. Basilio. * Rosanne Wilson RD, LD - 02/28/2019 1:16 PM EST Nutrition Assessment Type and Reason for Visit: Initial, Consult(post open heart failure) Nutrition Recommendations: 1. Advance diet as tolerated. Recommend goal of Cardiac, CHO Control diet. If po intake is >50% at meals consider further restricted CHO Control-3 choices (45g/meal) diet for more appropriate kcal/CHO allotment 2. Per MNT protocol, will provide Ensure HP BID to promote po intake (160kcal and 16g protein per 8oz servign) 3. RD provided education materials on heart healthy diet and diabetes diet and explained contents of each. RD contact information was also provided. Will assess for further education needs at follow up prior to discharge 4. RD will continue to monitor and follow up weekly Nutrition Assessment: Pt presents from [place] for evaluation for PCI vs CABG after presenting to [place] ED with chest pressure and having abnormal stress test and LHC showing severe MV CAD. PMH of DM, HFrEF, HTN, CAD. Now POD #1 CABG x3, extubated without event, full liquid diet ordered. Pt reports poor appetite, has had only orange juice yet, denies N/V. She is receptive to ONS. Prior to admission, pt follows a general diet and admits to poor understanding of diabetes diet and is receptive to education. Heart healthy diet and diabetes diet handouts were provided for review. Malnutrition Assessment: Malnutrition Status: At risk for malnutrition Context: Acute illness or injury Nutrition Risk Level: High Nutrient Needs: Estimated Daily Total Kcal: 6192-0000 Estimated Daily Protein (g): 48-57 Estimated Daily Total Fluid (ml/day): 1190ml or per MD Nutrition Diagnosis: Problem: Food and nutrition-related knowledge deficit, Predicted suboptimal energy intake Etiology: related to Lack of prior nutrition-related education(poor appetite) ? Signs and symptoms: as evidenced by (pt statements of poor diet understanding and report of poor appetite) Objective Information: Nutrition-Focused Physical Findings: -I/O. No edema. Hypoactive bowel sounds. Asaf=19. Chest tubex3. Labs noted: ^BUN-25, ^potassium-7.0-->6.7, [id number], HgA1C on 02/25-10.3% Wound Type: Surgical Wound Current Nutrition Therapies: Oral Diet Orders: Full Liquid Oral Diet intake: Unable to assess(reports poor appetite, has had only OJ) Oral Nutrition Supplement (ONS) Orders: None Anthropometric Measures: Ht: 5' 1 (154.9 cm) Current Body Wt: 176 lb (79.8 kg)(standing scale) Usual Body Wt: 160 lb (72.6 kg) % Weight Change: , Weight is increased from pt's reported UBW, no weight hx per EPIC to confirm weight change, will continue to monitor [place] Body Wt: 105 lb (47.6 kg), % [place] Body 168% BMI Classification: BMI 30.0 - 34.9 Obese Class I Nutrition Interventions: Continue current diet, Start ONS Continued Inpatient Monitoring, Education Initiated Nutrition Evaluation: Evaluation: Goals set Goals: Pt to consume ONS and demonstrate understanding of recommended diet through dietary choices Monitoring: Nutrition Progression, Meal Intake, Supplement Intake, Diet Tolerance, Skin Integrity, Wound Healing, I&O, Weight, Pertinent Labs, Patient/Family Education, Monitor Hemodynamic Status, Monitor Bowel Function Contact Number: pager [phone] * Mil Reddy, PT - 02/28/2019 12:03 PM EST Physical Therapy Facility/Department: [facility] Initial Assessment NAME: Christy Gurrola : 1950 Date of Service: 02/28/2019 Discharge Recommendations: Home independently Assessment Body structures, Functions, Activity limitations: Decreased strength;Decreased endurance;Decreased functional mobility ;Decreased safe awareness;Decreased balance Assessment: Pt admitted for Pod#1 CABG x 3. Pt [employer] TE[employer] was living alone independently. Pt this date wasbetween SBA x1-min assist x1 for sit to stand transfers. Will recommend home independently Prognosis: Good Decision Making: Medium Complexity PT Education: PT Role;Plan of Care;Home Exercise Program;Goals REQUIRES PT FOLLOW UP: Yes Activity Tolerance Activity Tolerance: Patient limited by fatigue Patient Diagnosis(es): There were no encounter diagnoses. has a past medical history of Arthritis, Blood circulation, collateral, CAD in [place] artery, Diabetes mellitus (HCC), HFrEF (heart failure with reduced ejection fraction) ([facility]LY [facility]), and Hypertension. has a past surgical history that includes joint replacement and Cholecystectomy. Restrictions Restrictions/Precautions Restrictions/Precautions: (3 chest tubes, catheter, IV, telemetry ) Position Activity Restriction Sternal Precautions: No Pushing, No Pulling, 10# Lifting Restrictions Vision/Hearing Vision: Within Functional Limits Hearing: Within functional limits Subjective General Chart Reviewed: Yes Patient assessed for rehabilitation services?: Yes Family / Caregiver Present: No Diagnosis: CABG x 3: 02/27 Follows Commands: Within Functional Limits Other (Comment): RN (miracle) ok'd evaluation Subjective Subjective: Pt agreeable for therapy. Pt reports feeling shaky but overall good (noted mild shakiness) Pain Screening Patient Currently in Pain: Denies Vital Signs Patient Currently in Pain: Denies Orientation Orientation Overall Orientation Status: Within Normal Limits Social/Functional History Social/Functional History Lives With: Spouse Type of Home: House Home Layout: One level Home Access: Stairs to enter with rails Entrance Stairs - Number of Steps: 2 Entrance Stairs - Rails: Both Bathroom Shower/Tub: Tub/Shower unit Bathroom Toilet: Standard Bathroom Equipment: Grab bars in shower, Shower chair, Grab bars around toilet Bathroom Accessibility: Accessible Receives Help From: Family ADL Assistance: Independent Homemaking Assistance: Independent Homemaking Responsibilities: Yes Ambulation Assistance: Independent Transfer Assistance: Independent Active Chief Growth Officer: Yes Mode of Transportation: Car 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 [employer] Leisure & Hobbies: making candies, breads Cognition Cognition Overall Cognitive Status: WFL Objective Observation/Palpation Observation: sternal incision intact AROM RLE (degrees) RLE AROM: WFL AROM LLE (degrees) LLE AROM : WFL AROM RUE (degrees) RUE AROM : WFL AROM LUE (degrees) LUE AROM : WFL Strength RLE Comment: 4/5 Strength LLE Comment: 4/5 Tone RLE RLE Tone: Normotonic Tone LLE LLE Tone: Normotonic Motor Control Gross Motor?: WNL Sensation Overall Sensation Status: (Denies N/Ting) Transfers Stand to sit: Minimal Assistance Bed to Chair: Stand by assistance Ambulation Ambulation?: Yes Ambulation 1 Surface: level tile Device: (nezzie) Assistance: Stand by assistance Quality of Gait: slow bonnie Gait Deviations: Decreased step length Distance: 125 feet x1 Stairs/Curb Stairs?: No Balance Sitting - Static: Good Sitting - Dynamic: Fair Standing - Static: Fair Standing - Dynamic: Fair Exercises Comments: Performed P&C exercises for 1 set of 10 reps; encouraged to perform 3- 4x per day Plan Plan Times per week: 5-7 Plan weeks: 2 weeks Current Treatment Recommendations: Strengthening, Transfer Training, Endurance Training, Patient/Caregiver Education & Training, Equipment Evaluation, Education, & procurement, Home Exercise Program, Functional Mobility Training, Balance Training, ROM, Safety Education & Training Plan Comment: Chest PT Safety Devices Type of devices: Call light within reach, Patient at risk for falls, All fall risk precautions in place, Gait belt, Left in chair G-Code OutComes Score [facility] Score [facility] Inpatient Mobility Raw Score : 15 (02/28/19 115) [facility] Inpatient T-Scale Score : 39.45 (02/28/19 1155) Mobility Inpatient CMS 0-100% Score: 57.7 (02/28/19 1155) Mobility Inpatient CMS G-Code Modifier : CK (02/28/19 115) Goals Short term goals Time Frame for Short term goals: 2 weeks Short term goal 1: Ambulate 200 feet x1 independently Short term goal 2: Transfers independently Short term goal 3: Ascend/descend 2 steps independently Short term goal 4: Perform walking program and P&C exercises independently Patient Goals Patient goals : to get home Therapy Time Individual Concurrent Group Co-treatment Time In 1101 Time Out 1135 Minutes 34 Timed Code Treatment Minutes: 11 Minutes(1 unit of TP) Transfer Plan of care over to [facility] Physical Therapy staff. Goals and/or treatment plan was established in collaboration with patient/family/other (specify). Mil Reddy PT * Liz Diaz, ADMISSION NURSE - ANALYTICS DIRECTOR - 02/28/2019 11:20 AM EST ENDOCRINOLOGY PROGRESS NOTE Patient: Christy Gurrola Unit/Bed:[id number] Date of : 1950 Admit date: 02/22/2019 Subjective: The patient is being followed for: type 2 DM Duration: diagnosed with DM around age 59 yo Course since yesterday: patient feels fine s/p CABG. Walking unit today with PT. She is tolerating meals. BG readings improving mid to low 100s. No hypoglycemia. Insulin gtt is currently at 8.5 cc/hr. Discussed with patient having Denisse Rodriguez come and see her to teach her about using the insulin pens at home. Severity: uncontrolled Associated with: CAD, HFrEF, HTN Aggravated by: lack of exercise as outpatient; stress from cardiac problems Relieved by: insulin given by nurses as inpatient; administered insulin doses are reviewed Patient is tolerating meals: [x] Yes [] No Diet: DIET FULL LIQUID; Review of Systems: Chest pain [] Yes [x] No Shortness of breath [] Yes [x] No Nausea [] Yes [x] No Vomiting [] Yes [x] No Past Medical/Surgical, Family, and Social History are reviewed and unchanged from current admission. Medications: Scheduled Meds: metoprolol tartrate 25 mg Oral BID [START ON 03/01/2019] pantoprazole 40 mg Oral QAM AC FLUoxetine 20 mg Oral Daily chlorhexidine Topical See Admin Instructions sodium chloride flush 10 mL Intravenous 2 times per day sennosides-docusate sodium 1 tablet Oral BID polyethylene glycol 17 g Oral Daily chlorhexidine 15 mL Mouth/Throat BID mupirocin Nasal BID atorvastatin 80 mg Oral Nightly aspirin 81 mg Oral Daily Continuous Infusions: sodium chloride 20 mL/hr at 02/28/19 0730 propofol Stopped (02/27/19 181) phenylephrine (AL-SYNEPHRINE) 50mg/250mL infusion nitroprusside (NIPRIDE) 50 mg in D5W infusion Stopped (02/28/19 0145) insulin 7.5 Units/hr (02/28/19 1027) dextrose PRN Meds:sodium chloride flush, potassium chloride, magnesium sulfate, calcium gluconate IVPB, acetaminophen, oxyCODONE-acetaminophen OR oxyCODONE- acetaminophen, bisacodyl, ondansetron, potassiumchloride, albumin human, sodium chloride, phenylephrine (AL-SYNEPHRINE) 50mg/250mL infusion, nitroprusside (NIPRIDE) 50 mg in D5W infusion, glucose, dextrose, glucagon (rDNA), dextrose, HYDROmorphone OR HYDROmorphone, insulin regular, propylene glycol-glycerin Objective: HgbA1C: No results for input(s): LABA1C in the last 72 hours. BMP: Recent Labs 02/27/19 1545 02/27/19 2100 02/28/19 0500 02/28/19 0734 NA 140 141 139 -- K 4.2 4.0 7.0* 6.7* CL 110* 110* 110* -- CO2 19* 18* 21* -- BUN 25* 24* 25* -- CREATININE 1.17 1.13 1.18 -- GLUCOSE 160* 164* 115* -- Glucose: Recent Labs 02/28/19 0413 02/28/19 0500 02/28/19 0620 02/28/19 0658 02/28/19 0804 02/28/19 0907 02/28/19 1004 02/28/19 1107 POCGLU 104* 110* 143* 155* 134* 135* 115* 133* Physical Exam: Vitals: BP (!) 144/60 Pulse 119 Temp 97.8 F (36.6 C) (Oral) Resp 30 Ht 5' 1 (1.549 m) Wt176 lb (79.8 kg) SpO2 98% BMI 33.25 kg/m 24hour intake/output: Intake/Output Summary (Last 24 hours) at 02/28/2019 1121 Last data filed at 02/28/2019 1000 Gross per 24 hour Intake 2220 ml Output 2277 ml Net -57 ml Physical Exam Vitals signs reviewed. Constitutional: Well developed. Up in chair. 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 Lab Results Component Value Date LABA1C 10.3 (H) 02/25/2019 Multivessel CAD with Angina - LHC on 02/22 concerning for multivessel disease - S/p CABG yesterday Plan: As outpatient prior to this admission: Stem Sizer: None Diabetes Medications/regimen: Metformin 500 mg daily Recommendations/Changes As inpatient now: Continue insulin gtt per protocol for now Home going Diabetes regimen: (if there are any concerns regarding this plan please call Endocrinology team to discuss): Unless otherwise indicated in this note, then when patient is ready for discharge, please dischargepatient on the same insulin types and doses patient is on as inpatient at time of discharge Counseling: Patient is counseled about symptoms of hypoglycemia and about importance of informing the RN if patient starts having such symptoms as inpatient Patient is counseled about plan Patient is counseled about blood sugar target Patient is counseled about effects of stress on blood sugar She is counseled about need for insulin drip after open heart surgery Follow up as outpatient after discharge: With ALBA Stewart in 2-4 weeks after discharge Time spent with patient 25 minutes with more than 51% of that time spent in direct face to face counseling as documented in note. I have reviewed previous note, referral note and previous work up. Associated attestation - Chantell Conrad MD - 02/28/2019 3:31 PM EST Attending Supervising Physician s Attestation Statement I saw and evaluated the patient. I discussed the findings and plans with nurse practitioner and agree as documented in her note Time spent with patient 25 minutes with more than 51% of that time spent in direct face to face counseling as documented in note. I have reviewed previous note, referral note and previous work up. Discussed with patient detection, monitoring, management, and prevention of hypoglycemia Discussed with patient sources of variability in blood glucose levels Discussed with patient diet modification and approach to diabetes management Discussed with patient illness and elevation of blood glucose levels, etiology and approach Discussed with patient challenges of inpatient care of diabetes Discussed with patient inpatient guidelines and goals for diabetes treatment Continue current insulin drip given very high rate Adjust to subcutaneous insulin when rate lower * Chantell Jones MD - 02/28/2019 11:11 AM EST ICU Progress Note 02/28/2019 11:11 AM Subjective: Admit Date: 02/22/2019 PCP: LIANET PETERS Interval History: Pt doing well post op. Extubated without event last evening. Reports adequate pain control. Potassium elevated this AM but no EKG changes noted. Diet: DIET FULL LIQUID; Medications: Scheduled Meds: metoprolol tartrate 25 mg Oral BID [START ON 03/01/2019] pantoprazole 40 mg Oral QAM AC FLUoxetine 20 mg Oral Daily chlorhexidine Topical See Admin Instructions sodium chloride flush 10 mL Intravenous 2 times per day sennosides-docusate sodium 1 tablet Oral BID polyethylene glycol 17 g Oral Daily chlorhexidine 15 mL Mouth/Throat BID mupirocin Nasal BID atorvastatin 80 mg Oral Nightly aspirin 81 mg Oral Daily Continuous Infusions: sodium chloride 20 mL/hr at 02/28/19 0730 propofol Stopped (02/27/19 1814) phenylephrine (AL-SYNEPHRINE) 50mg/250mL infusion nitroprusside (NIPRIDE) 50 mg in D5W infusion Stopped (02/28/19 0145) insulin 7.5 Units/hr (02/28/19 1027) dextrose CBC: Recent Labs 02/27/19 1545 02/27/19 2100 02/28/19 0404 WBC 16.4* 16.7* 18.8* HGB 9.8* 11.2* 11.4* PLT 144 143 160 BMP: Recent Labs 02/27/19 1545 02/27/19 2100 02/28/19 0500 02/28/19 0734 NA 140 141 139 -- K 4.2 4.0 7.0* 6.7* CL 110* 110* 110* -- CO2 19* 18* 21* -- BUN 25* 24* 25* -- CREATININE 1.17 1.13 1.18 -- GLUCOSE 160* 164* 115* -- INR: Recent Labs 02/26/19 1242 02/27/19 1545 INR 1.0 1.3* Objective: Vitals: BP (!) 144/60 Pulse 119 Temp 97.8 F (36.6 C) (Oral) Resp 30 Ht 5' 1 (1.549 m) Wt176 lb (79.8 kg) SpO2 98% BMI 33.25 kg/m Physical Exam: General Appearance: []WDWN [x]Obese []Cachectic []Thin []ill Skin: Temperature [x]Warm []Cool Rash []Yes [x]No Tattoo(s) []Yes []No HEENT: Pupils round and react [x]Yes []No Sclera []Icteric [x]Non-Icteric Conjunctiva []Injected [x]Non-Injected Pinnae [x]Normal []Other Oral Mucosa [x][place]ie [x]Moist []Dry Oral ETT []Present [x]Absent Neck: Trachea midline [x]Yes []No Thyromegaly []Yes [x]No Crepitus []Present [x]Absent Jvd []Present [x]Absent Lungs: [x]Clear []Crackles []Wheezes []Rhonchi Respiratory effort []Labored [x]Non-Labored Heart: Rate []Regular []Irregular [x]Tachycardia []Bradycardia Rhythm [x]Regular []Irregular Murmur []Present [x]Absent Peripheral Edema [x]Present []Absent Abdomen: [x]Soft Bowel Sounds [x]Present []Absent []Diminished []Tender [x]Non-Tender []Distended [x]Non-distended Hernia []Present []Absent Organomegaly []Present []Absent []Unable to assess due to size []Scar Extremities: Cyanosis []Present [x]Absent [place] ([x]RUE [x]RLE [x]LUE [x]LLE) Neurologic: [place] []Yes [x]No Corneal reflexes []Present []Absent Plantar reflexes []Up []Down []Absent Withdraws to tactile []Yes []No Follows Commands [x]Yes []No []Unresponsive to verbal [x]Cranial nerves grossly intact [x]Sensation grossly intact Psych: Alert [x]yes []no Oriented []x0 []x1 []x2 [x]x3 Affect []Normal []Flat []Agitated []Anxious []Calm []Sedated [x]NAD Assessment and Plan: 1. S/P CABG X 3, doing well with good cardiac output, ASA, statin, Metoprolol. 2. Post op ventilatory management; extubated, increase activity, IS. 3. Hyperkalemia: will give albuterol high dose to treat, pt also received lasix 4. DMII: on insulin per endocrinology 5. Anemia: acute blood loss 6. Leukocytosis: stress response 7. CKD stage 3, Cr about at baseline 8. DVT/GI prophylaxis Patient Active Problem List: CAD in [place] artery Diabetes mellitus (HCC) Hypertension HFrEF (heart failure with reduced ejection fraction) ([facility]) CHANTELL JONES MD * Lukas Moise APRN - CNS - 02/28/2019 9:15 AM EST Cardiothoracic Interval Progress Note 1. Repeat K+ level 6.7. 2. D/w Dr. Jones will add albuterol aerosol for hyperkalemia protocol 3. Lasix 40 mg IVP x1 4. Repeat BMP at noon today * Lukas Moise APRN - CNS - 02/28/2019 6:15 AM EST Cardiothoracic Surgery Progress Note 02/28/2019 Subjective: Admit Date: 02/22/2019 Interval History: S/P CABG x3 on 02/27/19 POD#1 potassium level 7.0 early am. Getting I Subjective: Resting in bed. States pain medication working doing okay Objective: Vitals: Temp (24hrs), Av.8 F (36.6 C), Min:97.3 F (36.3 C), Max:98.2 F (36.8 C) BP (!) 144/60 Pulse 119 Temp 97.8 F (36.6 C) (Oral) Resp 30 Ht 5' 1 (1.549 m) Wt 176 lb (79.8 kg) SpO2 98% BMI 33.25 kg/m I/O: Date 02/28/19 - 02/28/19 2359 Shift 4607-7022 8293-9270 6482-7800 24 Hour Total INTAKE I.V.(mL/kg/hr) 2220(3.5) 2220 Shift Total(mL/kg) 2220(27.8) 2220(27.8) OUTPUT Urine(mL/kg/hr) 455(0.7) 960 1415 Chest Tube 195 137 332 Shift Total(mL/kg) 650(8.1) 1097(13.7) 1747(21.9) Weight (kg) 79.8 79.8 79.8 79.8 Weights: Patient Vitals for the past 96 hrs (Last 3 readings): Weight 02/27/19 0610 176 lb (79.8 kg) 02/26/19 0322 177 lb 1.6 oz (80.3 kg) 02/25/19 0609 176 lb 1.6 oz (79.9 kg) Labs: BMP: Recent Labs 02/27/19 1545 02/27/19 2100 02/28/19 0500 02/28/19 0734 NA 140 141 139 -- K 4.2 4.0 7.0* 6.7* CL 110* 110* 110* -- CO2 19* 18* 21* -- BUN 25* 24* 25* -- CREATININE 1.17 1.13 1.18 -- GLUCOSE 160* 164* 115* -- . CBC: Recent Labs 02/27/19 2100 02/28/19 0404 WBC 16.7* 18.8* HGB 11.2* 11.4* PLT 143 160 Hepatic: No results for input(s): AST, ALT, ALB, BILITOT, ALKPHOS in the last 72 hours. INR: Lab Results Component Value Date PROTIME 13.5 02/27/2019 INR 1.3 02/27/2019 Films: CXR portable: Reviewed Physical Exam: Physical Exam Constitutional: General: She is not in acute distress. Appearance: She is well-developed and well-nourished. She is not diaphoretic. HENT: Head: Normocephalic and atraumatic. Eyes: Pupils: Pupils are equal, round, and reactive to light. Neck: Musculoskeletal: Normal range of motion and neck supple. Vascular: No JVD. Cardiovascular: Rate and Rhythm: Normal rate and regular rhythm. Pulses: Intact distal pulses. Pulses are palpable. Heart sounds: Normal heart sounds, S1 normal and S2 normal. No murmur. No friction rub. No gallop. Pulmonary: Effort: Pulmonary effort is normal. No respiratory distress. Breath sounds: Normal breath sounds. No stridor. Abdominal: General: Bowel sounds are normal. There is no distension. Palpations: Abdomen is soft. Tenderness: There is no tenderness. Musculoskeletal: Normal range of motion. General: No tenderness or edema. Skin: General: Skin is warm and dry. Capillary Refill: Capillary refill takes less than 2 seconds. Comments: Mid sternal chest incision intact with no signs of infection. Epicardial wires to temp pacer (off) Chest tube to -20 cm suction, serosang drainage. No air leaks. Alberts to SD with clear brett urine. Neurological: Mental Status: She is alert and oriented to person, place, and time. Cranial Nerves: No cranial nerve deficit. Psychiatric: Mood and Affect: Mood and affect normal. Behavior: Behavior normal. Thought Content: Thought content normal. Judgment: Judgment normal. Medications: Scheduled Meds: chlorhexidine Topical See Admin Instructions sodium chloride flush 10 mL Intravenous 2 times per day sennosides-docusate sodium 1 tablet Oral BID polyethylene glycol 17 g Oral Daily pantoprazole 40 mg Intravenous Daily And sodium chloride (PF) 10 mL Intravenous Daily chlorhexidine 15 mL Mouth/Throat BID mupirocin Nasal BID atorvastatin 80 mg Oral Nightly aspirin 81 mg Oral Daily Continuous Infusions: sodium chloride 20 mL/hr at 02/28/19 0730 propofol Stopped (02/27/19 1814) phenylephrine (AL-SYNEPHRINE) 50mg/250mL infusion nitroprusside (NIPRIDE) 50 mg in D5W infusion Stopped (02/28/19 0145) insulin 7.5 Units/hr (02/28/19 1027) dextrose Home Meds: Prior to Admission medications Medication Sig Start Date End Date Taking? Authorizing Provider aspirin 81 MG tablet Take 1 tablet by mouth daily 02/16/06 Yes Historical Provider, quinapril (ACCUPRIL) 20 MG tablet Take 1 tablet by mouth daily 06/15/06 Yes Historical Provider, FLUoxetine (PROZAC) 20 MG capsule Take 1 capsule by mouth daily 02/16/06 Historical Provider, metFORMIN (GLUCOPHAGE) 500 MG tablet Take 1 tablet by mouth nightly 06/30/06 Historical Provider, Diet: DIET FULL LIQUID; Problem List: Active Problems: CAD in [place] artery Diabetes mellitus (HCC) Hypertension HFrEF (heart failure with reduced ejection fraction) ([facility]LY [facility]) Resolved Problems: * No resolved hospital problems. * Assessment and Plan: 1. Multivessel CAD: Status post CABG x 3: GIRALDO to LAD, V to OM2, V to PDA of RCA; EVH; DONNELL on 02/27/19 -EF ? % on (DONNELL in process) -Core Medication: [x]ASA [x]BB added today [x] Statin [] ACEi/ARB (off home accupril) -Anticoagulation: n/a -Invasive Lines:Central Line: Day #1 -Alberts: Day# 1 2. Resp Insufficiency: (normal post operative course) On . CXR: Reviewed by Dr. Taylor during rounds today. Continue C&DB, Enc use of IS. CT output 225ml /last shift 295 ml last 24 hours. Maintain chest tubes to waterseal today 3. Hyperkalemia: K+7.0 getting IV lasix, will repeat level today. No ectopy. Continue to monitor tel. Plan to give additional lasix if still elevated and albuterol aerosol then repeat BMP later today 4. Hypertension: SBP 120-140's. Off nipride. BB added today. Art line out already 5. Hemodynamics: CO/CI 5.9/3.3 swan and art line out already per nsg protocol 6. Blood loss Anemia: Hgb: 11.4 Stable. No s/s bleeding. Continue to monitor CBC 7. Leukocytosis: WBC:18.3 Probable reactive. Afebrile. Continue to monitor labs 8. DM/Stress Hyperglycemia: Insulin per endocrine 9. HxDepression: Home prozac restarted 10. Post op pain: Continue prn's with relief 11. GI/DVT prophylaxis: PPI/SCD/Teds 12. Disposition: Continue progressive care in [facility] Blood Conservation Initiative Log: - none to date * Alma Lepe RCP - 02/27/2019 10:06 PM EST The patient is now extubated and on a 4L nasal cannula and breathing well. Alma Hernandez [employer]ICAL RECORD [employer] TEACHER - 02/27/2019 9:44 PM EST Patient stayed on SBT for 55 minutes with weaning parameters done before placing her back on previous settings. Pt with a VC of 856/ NIF of -21/ VT of 509/ MV of 8.7/ RR 20/ RSBI 77. * Steven Vidal MD - 02/27/2019 10:49 AM EST Hospitalist Progress Note 02/27/2019 10:49 AM [phone]: Please page me for patient care issues. [phone]: Please page [facility] night Hospitalist for any issues. Subjective: Admit Date: 02/22/2019 PCP: LIANET PETERS Room#: 1522/1522A Interval History: Patient waiting to go down for surgery. No chest pain or sob currently. No new complaints and denies any needs. Family at bedside. Diet NPO Time Specified Patient Vitals for the past 96 hrs (Last 3 readings): Weight 02/27/19 0610 176 lb (79.8 kg) 02/26/19 0322 177 lb 1.6 oz (80.3 kg) 02/25/19 0609 176 lb 1.6 oz (79.9 kg) Medications: dextrose insulin glargine 35 Units Subcutaneous Nightly insulin lispro 0-12 Units Subcutaneous TID WC atorvastatin 80 mg Oral Nightly sodium chloride flush 10 mL Intravenous 2 times per day escitalopram 10 mg Oral Daily LABS: CBC: Recent Labs 02/26/19 0613 WBC 8.3 RBC 4.88 HGB 14.9 HCT 44.0 MCV 90.3 RDW 13.1 PLT 205 BMP: Recent Labs 02/26/19 0613 02/27/19 0018 NA 136 138 K 5.1 4.7 CL 105 103 CO2 21* 24 BUN 30* 32* CREATININE 1.14 1.05 GLUCOSE 317* 233* CALCIUM 9.2 9.6 ANIONGAP 10 12 LIVER PROFILE:No results for input(s): AST, ALT, BILITOT, ALKPHOS, LABALBU, PROT in the last 72 hours. PT/INR: Recent Labs 02/26/19 1242 PROTIME 10.9 INR 1.0 CARDIAC ENZYMES: No results for input(s): TROPONINI in the last 72 hours. Procalcitonin: No results found for: PROCAL Objective: Vitals: BP 114/71 Pulse 65 Temp 97.3 F (36.3 C) (Temporal) Resp 16 Ht 5' 1 (1.549 m) Wt 176 lb (79.8 kg) SpO2 94% BMI 33.25 kg/m Pulse Ox: SpO2 Av.5 % Min: 92 % Max: 96 % Supplemental O2: General appearance: No apparent distress, appears stated age and cooperative with exam HEENT: Eyes: No scleral icterus Oral: Tongue is semi-moist Cardiovascular: S1S2 heard, RRR Respiratory: Clear to auscultation bilaterally Abdomen: Soft, non-tender, non-distended with normal bowel sounds. Musculoskeletal: No obvious deformities seen Skin: No visible rashes or lesions. Assessment Multivessel CAD with stable symptoms now - plan is for CABG today at noon -Hold ACEI and LMWH per CTS Diabetes still not controlled - insulin adjustment per endocrinology Dyslipidemia - continue statin therapy Hypertension overall controlled - continue current regimen except hold ACEI per CTS COPD - Final read on bedside spirometry pending, preliminary reading looks like moderate disease with FEV1 63% Plan For CABG at noon. Advance Directive: Full Code Discharge planning: PRISCILLA VIDAL DO Division of Hospitalist Medicine Inpatient Medical Services PAGER: [phone] * Sixto Salamanca MD - 02/26/2019 1:31 PM EST ENDOCRINOLOGY PROGRESS NOTE Patient: Christy Gurrola Unit/Bed:1522/1522A Date of : 1950 Admit date: 02/22/2019 Subjective: The patient is being followed for: type 2 DM Duration: diagnosed with DM around age 59 yo Course since yesterday: patient feels ok and she reports plan for CABG tomorrow. She is tolerating meals. BS readings improving but still in 200s-300s despite titrating insulin doses up. No hypoglycemia Severity: uncontrolled Associated with: CAD, HFrEF, HTN Aggravated by: lack of exercise as outpatient; stress from cardiac problems Relieved by: insulin given by nurses as inpatient; administered insulin doses are reviewed Patient is tolerating meals: [x] Yes [] No Diet: DIET CARB CONTROL; Diet NPO Time Specified Review of Systems: Chest pain [] Yes [x] No Shortness of breath [] Yes [x] No Nausea [] Yes [x] No Vomiting [] Yes [x] No Past Medical/Surgical, Family, and Social History are reviewed and unchanged from current admission. Medications: Scheduled Meds: mupirocin Nasal BID chlorhexidine 15 mL Mouth/Throat BID insulin glargine 25 Units Subcutaneous Nightly insulin lispro 10 Units Subcutaneous TID WC insulin lispro 0-12 Units Subcutaneous TID WC atorvastatin 80 mg Oral Nightly sodium chloride flush 10 mL Intravenous 2 times per day escitalopram 10 mg Oral Daily metoprolol tartrate 25 mg Oral BID Continuous Infusions: dextrose PRN Meds:dextromethorphan-guaiFENesin, sodium chloride flush, magnesium hydroxide, ondansetron, nitroGLYCERIN, glucose, dextrose, glucagon (rDNA), dextrose Objective: HgbA1C: Recent Labs 02/25/19 0603 LABA1C 10.3* BMP: Recent Labs 02/26/19 0613 NA 136 K 5.1 CL 105 CO2 21* BUN 30* CREATININE 1.14 GLUCOSE 317* Glucose: Recent Labs 02/24/19 1738 02/24/19 2212 02/25/19 0655 02/25/19 1405 02/25/19 1713 02/25/19 2118 02/26/19 0704 02/26/19 1122 POCGLU 285* 272* 338* 219* 266* 280* 316* 245* Physical Exam: Vitals: BP 121/69 Pulse 66 Temp 97.1 F (36.2 C) (Temporal) Resp 16 Ht 5' 1 (1.549 m) Wt 177 lb 1.6 oz (80.3 kg) SpO2 93% BMI 33.46 kg/m 24hour intake/output: Intake/Output Summary (Last 24 hours) at 02/26/2019 1331 Last data filed at 02/26/2019 1247 Gross per 24 hour Intake 2200 ml Output 2500 ml Net -300 ml Physical Exam Vitals signs reviewed. Constitutional: Well developed. 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 Lab Results Component Value Date LABA1C 10.3 (H) 02/25/2019 Multivessel CAD with Angina - [facility] on 02/22 concerning for multivessel disease - Planning for possible CABG on Wednesday Plan: As outpatient prior to this admission: Stem Sizer: None Diabetes Medications/regimen: Metformin 500 mg daily Recommendations/Changes As inpatient now: Increase Lantus dose from 25units to 35 units at bedtime Increase Humalog dose from 10 units to 16 units AC meals Continue Humalog medium dose SSI Home going Diabetes regimen: (if there are any concerns regarding this plan please call Endocrinology team to discuss): Unless otherwise indicated in this note, then when patient is ready for discharge, please dischargepatient on the same insulin types and doses patient is on as inpatient at time of discharge Patient is counseled that she needs insulin after discharge and thus needs DM ed and insulin pen teaching after surgery Counseling: Patient is counseled about symptoms of hypoglycemia and about importance of informing the RN if patient starts having such symptoms as inpatient Patient is counseled about plan Patient is counseled about blood sugar target Patient is counseled about effects of stress on blood sugar She is counseled about need for insulin drip after open heart surgery Follow up as outpatient after discharge: With ALBA Stewart in 2-4 weeks after discharge * Ronda Mcdonald, ADMISSION NURSE - DESIGN/ANIMATION INSTRUCTOR - 02/26/2019 11:23 AM EST Cardiothoracic Surgery Progress Note 02/26/2019 Subjective: Admit Date: 02/22/2019 Interval History: Transferred from [place](see consult note) Multivessel CAD plan for CABG surgery Wednesday-> second case with Dr Taylor Subjective: Resting in bed sleeping when undisturbed. Denies chest pain, shortness of breath and palpitations Objective: Vitals: Temp (24hrs), Av.1 F (36.7 C), Min:97 F (36.1 C), Max:99.2 F (37.3 C) BP 107/64 Pulse 76 Temp 97.3 F (36.3 C) (Temporal) Resp 16 Ht 5' 1 (1.549 m) Wt 177 lb 1.6 oz (80.3 kg) SpO2 92% BMI 33.46 kg/m I/O: Date 02/26/19 0000 - 02/26/19 2359 Shift 6644-5857 9324-3736 1616-1924 24 Hour Total INTAKE P.O. 240 240 Shift Total(mL/kg) 240(3) 240(3) OUTPUT Urine(mL/kg/hr) 900(1.4) 800 1700 Shift Total(mL/kg) 900(11.2) 800(10) 1700(21.2) Weight (kg) 80.3 80.3 80.3 80.3 Weights: Patient Vitals for the past 96 hrs (Last 3 readings): Weight 02/26/19 0322 177 lb 1.6 oz (80.3 kg) 02/25/19 0609 176 lb 1.6 oz (79.9 kg) 02/24/19 0512 176 lb 8 oz (80.1 kg) Labs: BMP: Recent Labs 02/26/19 0613 NA 136 K 5.1 CL 105 CO2 21* BUN 30* CREATININE 1.14 GLUCOSE 317* . CBC: Recent Labs 02/26/19 0613 WBC 8.3 HGB 14.9 PLT 205 Hepatic: No results for input(s): AST, ALT, ALB, BILITOT, ALKPHOS in the last 72 hours. INR: No results found for: PROTIME, INR Films: CXR portable: Reviewed Physical Exam: Medications: Scheduled Meds: mupirocin Nasal BID chlorhexidine 15 mL Mouth/Throat BID insulin glargine 25 Units Subcutaneous Nightly insulin lispro 10 Units Subcutaneous TID WC insulin lispro 0-12 Units Subcutaneous TID WC atorvastatin 80 mg Oral Nightly sodium chloride flush 10 mL Intravenous 2 times per day escitalopram 10 mg Oral Daily metoprolol tartrate 25 mg Oral BID Continuous Infusions: dextrose Home Meds: Prior to Admission medications Medication Sig Start Date End Date Taking? Authorizing Provider aspirin 81 MG tablet Take 1 tablet by mouth daily 02/16/06 Yes Historical Provider, quinapril (ACCUPRIL) 20 MG tablet Take 1 tablet by mouth daily 06/15/06 Yes Historical Provider, FLUoxetine (PROZAC) 20 MG capsule Take 1 capsule by mouth daily 02/16/06 Historical Provider, metFORMIN (GLUCOPHAGE) 500 MG tablet Take 1 tablet by mouth nightly 06/30/06 Historical Provider, Diet: DIET CARB CONTROL; Diet NPO Time Specified Problem List: Active Problems: CAD in [place] artery Diabetes mellitus (HCC) Hypertension HFrEF (heart failure with reduced ejection fraction) ([facility]) Resolved Problems: * No resolved hospital problems. * Assessment and Plan: 1. Multivessel CAD: Plan for CABG surgery this Wednesday02/27/[address] Taylor. HoldingASA and BB after today's dose 2. HxHypertension: SBP 120-140's. Controlled. metoprolol 25 mg BID. REESE D/c'd today 3. DM: off home metformin. On schedule insulin and SSI, Hgb A!C 10.3 4. On prophylaxis DVT lovenox dced today. 5. U/a results reviewed within normal limits, Hgb A1C+ 10.3. Vein mapping and carotids done and Dr Taylor has reviewed 6. Pre op orders placed, d/w nurse, answered all patient's questions and concerns. * Jayson Metzger MD - 02/26/2019 10:14 AM EST Hospitalist Progress Note 02/26/2019 10:14 AM Subjective: Admit Date: 02/22/2019 PCP: LIANET PETERS Advance Directive: Full Code Interval History: Feels same, twinges of chest discomfort no better/no worse, no new symptoms DIET CARB CONTROL; Intake/Output Summary (Last 24 hours) at 02/26/2019 1014 Last data filed at 02/26/2019 0855 Gross per 24 hour Intake 1240 ml Output 2100 ml Net -860 ml Medications: Cefazolin; Codeine; Morphine; Naloxone; and Talwin [pentazocine] Current Facility-Administered Medications: dextromethorphan-guaiFENesin (MUCINEX DM) 30-600 MG per extended release tablet 1 tablet, 1 tablet,Oral, Q12H PRN, Ronda Mcdonald, ADMISSION NURSE - DESIGN/ANIMATION INSTRUCTOR, 1 tablet at 02/25/19 1613 insulin glargine (LANTUS) injection vial 25 Units, 25 Units, Subcutaneous, Nightly, Sixto Salamanca MD, 25 Units at 02/25/19 2120 insulin lispro (HUMALOG) injection vial 10 Units, 10 Units, Subcutaneous, TID , Sixto Salamanca MD, 10 Units at 02/26/19 0721 insulin lispro (HUMALOG) injection vial 0-12 Units, 0-12 Units, Subcutaneous, TID WC, Mil Pettit MD, 8 Units at 02/26/19 07 atorvastatin (LIPITOR) tablet 80 mg, 80 mg, Oral, Nightly, Timmy Basilio MD, 80 mg at 02/25/19 211 sodium chloride flush 0.9 % injection 10 mL, 10 mL, Intravenous, 2 times per day, Brigido Conrad MD, 10 mL at 02/26/19 0809 sodium chloride flush 0.9 % injection 10 mL, 10 mL, Intravenous, PRN, Brigido Conrad MD magnesium hydroxide (MILK OF MAGNESIA) 400 MG/5ML suspension 30 mL, 30 mL, Oral, Daily PRN, Brigido Conrad MD ondansetron (ZOFRAN) injection 4 mg, 4 mg, Intravenous, Q6H PRN, Brigido Conrad MD [Held by provider] enoxaparin (LOVENOX) injection 40 mg, 40 mg, Subcutaneous, Daily, Brigido Conard MD, Stopped at 02/26/19 0730 aspirin chewable tablet 81 mg, 81 mg, Oral, Daily, Brigido Conrad MD, 81 mg at 02/26/19 08 escitalopram (LEXAPRO) tablet 10 mg, 10 mg, Oral, Daily, Brigido Conrad MD, 10 mg at 02/26/19 08 metoprolol tartrate (LOPRESSOR) tablet 25 mg, 25 mg, Oral, BID, Brigido Conrad MD, 25 mg at 02/26/19 0801 [Held by provider] lisinopril (PRINIVIL;ZESTRIL) tablet 10 mg, 10 mg, Oral, Daily, Brigido Conrad MD, Stopped at 02/26/19 0729 nitroGLYCERIN (NITROSTAT) SL tablet 0.4 mg, 0.4 mg, Sublingual, Q5 Min PRN, Brigido Conrad MD glucose (GLUTOSE) 40 % oral gel 15 g, 15 g, Oral, PRN, Brigido Conrad MD dextrose 50 % IV solution, 12.5 g, Intravenous, PRN, Brigido Conrad MD glucagon (rDNA) injection 1 mg, 1 mg, Intramuscular, PRN, Brigido Conrad MD dextrose 5 % solution, 100 mL/hr, Intravenous, PRN, Brigido Conrad MD LABS: Recent Labs 02/26/19 0613 WBC 8.3 HGB 14.9 PLT 205 Recent Labs 02/26/19 0613 NA 136 K 5.1 CL 105 CO2 21* BUN 30* CREATININE 1.14 GLUCOSE 317* No results for input(s): INR in the last 72 hours. Invalid input(s): PT No results for input(s): TROPONINI in the last 72 hours. Objective: Vitals: BP 107/64 Pulse 76 Temp 97.3 F (36.3 C) (Temporal) Resp 16 Ht 5' 1 (1.549 m) Wt 177 lb 1.6 oz (80.3 kg) SpO2 92% BMI 33.46 kg/m General appearance: alert and cooperative with exam HEENT: mucous membranes are moist, neck supple Lungs: clear today with good air exchange bilaterally, no wheezing currently Heart:: Regular rate and rhythm with no murmurs or gallops Abdomen: Soft, non-tender with no guarding or rebound, no palpable masses Extremities: Good ROM all 4 extremities, no edema, distal pulses intact Neurologic: No obvious focal neurologic deficits. Psychologic: Alert and Oriented to Person, Place, and Time Skin: No rashes Assessment/Plan: Multivessel CAD with stable symptoms now - plan is for CABG Wednesday -Hold ACEI and LMWH per CTS Diabetes still not controlled - insulin adjustment per endocrinology Dyslipidemia - continue statin therapy Hypertension overall controlled - continue current regimen except hold ACEI per CTS COPD - Final read on bedside spirometry pending, preliminary reading looks like moderate disease with FEV1 63% Discharge planning: TBD Jayson Metzger MD * Sixto Salamanca MD - 02/25/2019 4:29 PM EST ENDOCRINOLOGY PROGRESS NOTE Patient: Christy Gurrola Unit/Bed:1522/1522A Date of : 1950 Admit date: 02/22/2019 Subjective: The patient is being followed for: type 2 DM Duration: diagnosed with DM around age 59 yo Course since yesterday: patient feels ok and she reports plan for CABG the day after tomorrow. She is tolerating meals. BS readings improving but still in 200s. No hypoglycemia Severity: uncontrolled Associated with: CAD, HFrEF, HTN Aggravated by: lack of exercise as outpatient; stress from cardiac problems Relieved by: insulin given by nurses as inpatient; administered insulin doses are reviewed Patient is tolerating meals: [x] Yes [] No Diet: DIET CARB CONTROL; Review of Systems: Chest pain [] Yes [x] No Shortness of breath [] Yes [x] No Nausea [] Yes [x] No Vomiting [] Yes [x] No Past Medical/Surgical, Family, and Social History are reviewed and unchanged from current admission. Medications: Scheduled Meds: insulin lispro 0.08 Units/kg Subcutaneous TID WC insulin glargine 16 Units Subcutaneous Nightly insulin lispro 0-12 Units Subcutaneous TID WC atorvastatin 80 mg Oral Nightly sodium chloride flush 10 mL Intravenous 2 times per day enoxaparin 40 mg Subcutaneous Daily aspirin 81 mg Oral Daily escitalopram 10 mg Oral Daily metoprolol tartrate 25 mg Oral BID lisinopril 10 mg Oral Daily Continuous Infusions: dextrose PRN Meds:dextromethorphan-guaiFENesin, sodium chloride flush, magnesium hydroxide, ondansetron, nitroGLYCERIN, glucose, dextrose, glucagon (rDNA), dextrose Objective: HgbA1C: Recent Labs 02/25/19 0603 LABA1C 10.3* BMP: Recent Labs 02/23/19 0625 NA 136 K 4.8 CL 106 CO2 21* BUN 24* CREATININE 1.03 GLUCOSE 288* Glucose: Recent Labs 02/23/19 1705 02/23/19 2100 02/24/19 0804 02/24/19 1141 02/24/19 1738 02/24/19 2212 02/25/19 0655 02/25/19 1405 POCGLU 328* 296* 302* 290* 285* 272* 338* 219* Physical Exam: Vitals: BP (!) 110/54 Pulse 82 Temp 98 F (36.7 C) (Temporal) Resp 18 Ht 5' 1 (1.549 m) Wt 176 lb 1.6 oz (79.9 kg) SpO2 95% BMI 33.27 kg/m 24hour intake/output: Intake/Output Summary (Last 24 hours) at 02/25/2019 1633 Last data filed at 02/25/2019 1624 Gross per 24 hour Intake 1450 ml Output 3100 ml Net -1650 ml Physical Exam Vitals signs reviewed. Constitutional: Well developed Eyes: Conjunctiva clear, Pupils equal Neck: Nomasses, No thyromegaly Respiratory: No respiratory distress, Chest Clear to auscultation, symmetrical expansion, No deformity Cardiovascular System: Regular rate and rhythm, No murmurs, No rubs, No lower extremity edema Abdomen: soft, lax, non-tender, bowel sounds positive Psychiatric: Conscious, alert, oriented to time, place and person Assessment: Type 2 DM with hyperglycemia with fci insulin use Lab Results Component Value Date LABA1C 10.3 (H) 02/25/2019 Multivessel CAD with Angina - [facility] on 02/22 concerning for multivessel disease - Planning for possible CABG on Wednesday Plan: As outpatient prior to this admission: Stem Sizer: None Diabetes Medications/regimen: Metformin 500 mg daily Recommendations/Changes As inpatient now: Increase Lantus dose from 16 units to 25 units at bedtime Increase Humalog dose from 6 units to 10 units AC meals Continue Humalog medium dose SSI Home going Diabetes regimen: (if there are any concerns regarding this plan please call Endocrinology team to discuss): Unless otherwise indicated in this note, then when patient is ready for discharge, please dischargepatient on the same insulin types and doses patient is on as inpatient at time of discharge Patient is counseled that she needs insulin after discharge and thus needs DM ed and insulin pen teaching after surgery Counseling: Patient is counseled about symptoms of hypoglycemia and about importance of informing the RN if patient starts having such symptoms as inpatient Patient is counseled about plan Patient is counseled about blood sugar target Patient is counseled about effects of stress on blood sugar She is counseled about need for insulin drip after open heart surgery Follow up as outpatient after discharge: With ANALYTICS DIRECTOR Jolynn Stewart in 2-4 weeks after discharge * Harry Ronda E, ADMISSION NURSE - DESIGN/ANIMATION INSTRUCTOR - 02/25/2019 10:52 AM EST Cardiothoracic Surgery Progress Note 02/25/2019 Subjective: Admit Date: 02/22/2019 Interval History: Transferred from [place](see consult note) Multivessel CAD plan for CABG surgery Wednesday-> second case with Dr Taylor Subjective: Resting in bed sleeping when undisturbed. Denies chest pain, shortness of breath and palpitations Objective: Vitals: Temp (24hrs), Av.8 F (36.6 C), Min:97 F (36.1 C), Max:98.7 F (37.1 C) BP (!) 142/74 Pulse 76 Temp 97 F (36.1 C) (Temporal) Resp 18 Ht 5' 1 (1.549 m) Wt 176 lb1.6 oz (79.9 kg) SpO2 94% BMI 33.27 kg/m I/O: Date 02/25/19 - 02/25/192358 Shift 1404-2710 8275-4119 7123-2173 24 Hour Total INTAKE P.O. 200 300 500 Shift Total(mL/kg) 200(2.5) 300(3.8) 500(6.3) OUTPUT Urine(mL/kg/hr) 1000(1.6) 400 1400 Shift Total(mL/kg) 1000(12.5) 400(5) 1400(17.5) Weight (kg) 79.9 79.9 79.9 79.9 Weights: Patient Vitals for the past 96 hrs (Last 3 readings): Weight 02/25/19 0609 176 lb 1.6 oz (79.9 kg) 02/24/19 0512 176 lb 8 oz (80.1 kg) 02/23/19 0625 175 lb 5 oz (79.5 kg) Labs: BMP: Recent Labs 02/23/19 0625 NA 136 K 4.8 CL 106 CO2 21* BUN 24* CREATININE 1.03 GLUCOSE 288* . CBC: Recent Labs 02/23/19 0625 WBC 8.6 HGB 15.1 PLT 212 Hepatic: Recent Labs 02/23/19 0625 AST 49* ALT 53 BILITOT 0.5 ALKPHOS 57 INR: No results found for: PROTIME, INR Films: CXR portable: Reviewed Physical Exam: Medications: Scheduled Meds: insulin lispro 0.08 Units/kg Subcutaneous TID WC insulin glargine 16 Units Subcutaneous Nightly insulin lispro 0-12 Units Subcutaneous TID WC atorvastatin 80 mg Oral Nightly sodium chloride flush 10 mL Intravenous 2 times per day enoxaparin 40 mg Subcutaneous Daily aspirin 81 mg Oral Daily escitalopram 10 mg Oral Daily metoprolol tartrate 25 mg Oral BID lisinopril 10 mg Oral Daily Continuous Infusions: dextrose Home Meds: Prior to Admission medications Medication Sig Start Date End Date Taking? Authorizing Provider aspirin 81 MG tablet Take 1 tablet by mouth daily 02/16/06 Yes Historical Provider, quinapril (ACCUPRIL) 20 MG tablet Take 1 tablet by mouth daily 06/15/06 Yes Historical Provider, FLUoxetine (PROZAC) 20 MG capsule Take 1 capsule by mouth daily 02/16/06 Historical Provider, metFORMIN (GLUCOPHAGE) 500 MG tablet Take 1 tablet by mouth nightly 06/30/06 Historical Provider, Diet: DIET CARB CONTROL; Problem List: Active Problems: CAD in [place] artery Diabetes mellitus (HCC) Hypertension HFrEF (heart failure with reduced ejection fraction) ([facility]) Resolved Problems: * No resolved hospital problems. * Assessment and Plan: 1. Multivessel CAD: Plan for CABG surgery this Wednesday02/27/[address] Taylor. Continue ASA, BB, Statin 2. HxHypertension: SBP 120-140's. Controlled. On lisinopril 10 mg daily, metoprolol 25 mg BID. REESE will need d/c'd on Wednesday. 3. DM: off home metformin. On schedule insulin and SSI, Hgb A!C 10.3 4. On prophylaxis DVT lovenox. Needs discontinued on Wednesday. 5. U/a results reviewed within normal limits, Hgb A1C+ 10.3. Vein mapping and carotids ordered on 02/23/19 but still not obtained, d/w nurse and she will call to department and f/u. * Jayson Metzger MD - 02/25/2019 10:30 AM EST Hospitalist Progress Note 02/25/2019 10:30 AM Subjective: Admit Date: 02/22/2019 PCP: LIANET PETERS Advance Directive: Full Code Interval History: She states gets occasional twinge of chest pain no change DIET CARB CONTROL; Intake/Output Summary (Last 24 hours) at 02/25/2019 1030 Last data filed at 02/25/2019 0852 Gross per 24 hour Intake 1010 ml Output 3300 ml Net -2290 ml Medications: Cefazolin; Codeine; Morphine; Naloxone; and Talwin [pentazocine] Current Facility-Administered Medications: insulin lispro (HUMALOG) injection vial 6 Units, 0.08 Units/kg, Subcutaneous, TID Mil DRAKE MD, 6 Units at 02/24/19 1746 insulin glargine (LANTUS) injection vial 16 Units, 16 Units, Subcutaneous, Nightly, Shreyas Shaw DO, 16 Units at 02/24/19 2213 insulin lispro (HUMALOG) injection vial 0-12 Units, 0-12 Units, Subcutaneous, TID Mil DRAKE MD, 6 Units at 02/24/19 1748 atorvastatin (LIPITOR) tablet 80 mg, 80 mg, Oral, Nightly, Timmy Basilio MD, 80 mg at 02/24/191958 sodium chloride flush 0.9 % injection 10 mL, 10 mL, Intravenous, 2 times per day, Brigido Conrad MD, 10 mL at 02/25/19 0844 sodium chloride flush 0.9 % injection 10 mL, 10 mL, Intravenous, PRN, Brigido Conrad MD magnesium hydroxide (MILK OF MAGNESIA) 400 MG/5ML suspension 30 mL, 30 mL, Oral, Daily PRN, Brigido Conrad MD ondansetron (ZOFRAN) injection 4 mg, 4 mg, Intravenous, Q6H PRN, Brigido Conrad MD enoxaparin (LOVENOX) injection 40 mg, 40 mg, Subcutaneous, Daily, Brigido Conrad MD, 40 mg at 02/25/19 0843 aspirin chewable tablet 81 mg, 81 mg, Oral, Daily, Brigido Conrad MD, 81 mg at 02/25/19 0842 escitalopram (LEXAPRO) tablet 10 mg, 10 mg, Oral, Daily, Brigido Conrad MD, 10 mg at 02/25/19 0842 metoprolol tartrate (LOPRESSOR) tablet 25 mg, 25 mg, Oral, BID, Brigido Conrad MD, 25 mg at 02/25/19 0842 lisinopril (PRINIVIL;ZESTRIL) tablet 10 mg, 10 mg, Oral, Daily, Brigido Conrad MD, 10 mg at 02/25/19 0842 nitroGLYCERIN (NITROSTAT) SL tablet 0.4 mg, 0.4 mg, Sublingual, Q5 Min PRN, Brigido Conrad MD glucose (GLUTOSE) 40 % oral gel 15 g, 15 g, Oral, PRN, Brigido Conrad MD dextrose 50 % IV solution, 12.5 g, Intravenous, PRN, Brigido Conrad MD glucagon (rDNA) injection 1 mg, 1 mg, Intramuscular, PRN, Brigido Conrad MD dextrose 5 % solution, 100 mL/hr, Intravenous, PRN, Brigido Conrad MD LABS: Recent Labs 02/23/19 0625 WBC 8.6 HGB 15.1 PLT 212 Recent Labs 02/23/19 0625 NA 136 K 4.8 CL 106 CO2 21* BUN 24* CREATININE 1.03 GLUCOSE 288* No results for input(s): INR in the last 72 hours. Invalid input(s): PT No results for input(s): TROPONINI in the last 72 hours. Objective: Vitals: BP (!) 142/74 Pulse 76 Temp 97 F (36.1 C) (Temporal) Resp 18 Ht 5' 1 (1.549 m) Wt 176 lb 1.6 oz (79.9 kg) SpO2 94% BMI 33.27 kg/m General appearance: alert and cooperative with exam HEENT: mucous membranes are moist, neck supple Lungs: Occasional wheeze, otherwise clear Heart:: Regular rate and rhythm with no murmurs or gallops Abdomen: Soft, non-tender with no guarding or rebound, no palpable masses Extremities: Good ROM all 4 extremities, no edema, distal pulses intact Neurologic: No obvious focal neurologic deficits. Psychologic: Alert and Oriented to Person, Place, and Time Skin: No rashes Assessment/Plan: Multivessel CAD with stable symptoms now - plan is for CABG Wednesday Diabetes not controlled - insulin adjustment per endocrinology Dyslipidemia - continue statin therapy Hypertension overall controlled - continue current regimen; to hold ACEI tomorrow per CTS COPD - Final read on bedside spirometry pending, preliminary reading looks like moderate disease with FEV1 63% Discharge planning: TBD Jayson Metzger MD * Lukas Moise APRN - DESIGN/ANIMATION INSTRUCTOR - 02/24/2019 2:54 PM EST Cardiothoracic Surgery Progress Note 02/24/2019 Subjective: Admit Date: 02/22/2019 Interval History: Transferred from [place](see consult note) Multivessel CAD plan for CABG surgery Wednesday Subjective: Resting in bed sleeping when undisturbed. Denies chest pain, shortness of breath and palpitations Objective: Vitals: Temp (24hrs), Av.1 F (36.7 C), Min:97.5 F (36.4 C), Max:98.5 F (36.9 C) BP 127/64 Pulse 77 Temp 98 F (36.7 C) (Temporal) Resp 18 Ht 5' 1 (1.549 m) Wt 176 lb 8 oz (80.1 kg) SpO2 94% BMI 33.35 kg/m I/O: Date 02/24/19 - 02/24/19 235 Shift 9402-3398 4890-2602 6117-3614 24 Hour Total INTAKE P.O. 763 681 8671 Shift Total(mL/kg) 400(5) 720(9) 1120(14) OUTPUT Urine(mL/kg/hr) 900(1.4) 900 Shift Total(mL/kg) 900(11.2) 900(11.2) Weight (kg) 80.1 80.1 80.1 80.1 Weights: Patient Vitals for the past 96 hrs (Last 3 readings): Weight 02/24/19 0512 176 lb 8 oz (80.1 kg) 02/23/19 0625 175 lb 5 oz (79.5 kg) 02/22/19 1300 176 lb 4.8 oz (80 kg) Labs: BMP: Recent Labs 02/23/19 0625 NA 136 K 4.8 CL 106 CO2 21* BUN 24* CREATININE 1.03 GLUCOSE 288* . CBC: Recent Labs 02/23/19624 WBC 8.6 HGB 15.1 PLT 212 Hepatic: Recent Labs 02/23/19624 AST 49* ALT 53 BILITOT 0.5 ALKPHOS 57 INR: No results found for: PROTIME, INR Films: CXR portable: Reviewed Physical Exam: Physical Exam Constitutional: She is oriented to person, place, and time. She appears well- developed and well-nourished. No distress. HENT: Head: Normocephalic and atraumatic. Eyes: Pupils are equal, round, and reactive to light. Neck: Normal range of motion. Neck supple. No JVD present. Cardiovascular: Normal rate, regular rhythm, normal heart sounds and intact distal pulses. Exam reveals no gallop and no friction rub. No murmur heard. Pulmonary/Chest: Effort normal and breath sounds normal. No stridor. No respiratory distress. Abdominal: Soft. Bowel sounds are normal. She exhibits no distension. There is no tenderness. Musculoskeletal: Normal range of motion. She exhibits no edema or tenderness. Neurological: She is alert and oriented to person, place, and time. Skin: Skin is warm and dry. She is not diaphoretic. Psychiatric: She has a normal mood and affect. Her behavior is normal. Judgment and thought contentnormal. Medications: Scheduled Meds: insulin glargine 0.25 Units/kg Subcutaneous Nightly insulin lispro 0.08 Units/kg Subcutaneous TID WC insulin lispro 0-12 Units Subcutaneous TID WC insulin lispro 0-6 Units Subcutaneous Nightly atorvastatin 80 mg Oral Nightly sodium chloride flush 10 mL Intravenous 2 times per day enoxaparin 40 mg Subcutaneous Daily aspirin 81 mg Oral Daily escitalopram 10 mg Oral Daily metoprolol tartrate 25 mg Oral BID lisinopril 10 mg Oral Daily Continuous Infusions: dextrose Home Meds: Prior to Admission medications Medication Sig Start Date End Date Taking? Authorizing Provider aspirin 81 MG tablet Take 1 tablet by mouth daily 02/16/06 Yes Historical Provider, quinapril (ACCUPRIL) 20 MG tablet Take 1 tablet by mouth daily 06/15/06 Yes Historical Provider, FLUoxetine (PROZAC) 20 MG capsule Take 1 capsule by mouth daily 02/16/06 Historical Provider, metFORMIN (GLUCOPHAGE) 500 MG tablet Take 1 tablet by mouth nightly 06/30/06 Historical Provider, Diet: DIET CARB CONTROL; Problem List: Active Problems: CAD in [place] artery Diabetes mellitus (HCC) Hypertension HFrEF (heart failure with reduced ejection fraction) ([facility]) Resolved Problems: * No resolved hospital problems. * Assessment and Plan: 1. Multivessel CAD: Plan for CABG surgery this Wednesday02/27/19 at [address] Taylor. Continue ASA, BB, Statin 2. Reviewed heart surgery education with patient 3. HxHypertension: SBP 120-130's. Controlled. On lisinopril 10 mg daily, metoprolol 25 mg BID. REESE will need d/c'd on Wednesday. 4. DM: off home metformin. On schedule insulin and SSI 5. On prophylaxis DVT lovenox. Needs discontinued on Wednesday. 6. Will order nasal culture, bedside spirometry and u/a, A1C. Vein mapping and carotids already ordered. * Mil Pettit MD - 02/24/2019 10:54 AM EST Hospitalist Progress Note 02/24/2019 10:54 AM Subjective: Admit Date: 02/22/2019 PCP: LIANET PETERS Interval History: pt feels ok Some sore throat No overnight issues. Deniesabdominal pain, nausea, vomiting, diarrhea, constipation, fevers, or chills. DIET CARB CONTROL; Date 02/24/19 0000 - 02/24/19 2359 Shift [id number] 7308-9762 7513-7157 24 Hour Total INTAKE P.O.(mL/kg/hr) 400(0.6) 400 Shift Total(mL/kg) 400(5) 400(5) OUTPUT Urine(mL/kg/hr) 900(1.4) 900 Shift Total(mL/kg) 900(11.2) 900(11.2) Weight (kg) 80.1 80.1 80.1 80.1 Patient Vitals for the past 96 hrs (Last 3 readings): Weight 02/24/19 0512 176 lb 8 oz (80.1 kg) 02/23/19 0625 175 lb 5 oz (79.5 kg) 02/22/19 1300 176 lb 4.8 oz (80 kg) Medications: dextrose insulin lispro 0-12 Units Subcutaneous TID WC insulin lispro 0-6 Units Subcutaneous Nightly atorvastatin 80 mg Oral Nightly sodium chloride flush 10 mL Intravenous 2 times per day enoxaparin 40 mg Subcutaneous Daily aspirin 81 mg Oral Daily escitalopram 10 mg Oral Daily metoprolol tartrate 25 mg Oral BID lisinopril 10 mg Oral Daily Recent Labs 02/23/19 0625 WBC 8.6 HGB 15.1 PLT 212 Recent Labs 02/23/19 0625 NA 136 K 4.8 CL 106 CO2 21* BUN 24* CREATININE 1.03 GLUCOSE 288* Recent Labs 02/23/19 0625 AST 49* ALT 53 BILITOT 0.5 ALKPHOS 57 No results found for: TRIG, HDL, LDLCALC, CHOL No results for input(s): INR in the last 72 hours. No results for input(s): CKTOTAL, CKMB, TROPONINI in the last 72 hours. Objective: Vitals: BP 112/73 Pulse 90 Temp 97.7 F (36.5 C) (Temporal) Resp 18 Ht 5' 1 (1.549 m) Wt 176 lb 8 oz (80.1 kg) SpO2 94% BMI 33.35 kg/m Pulse Ox: SpO2 Av % Min: 92 % Max: 99 % Supplemental O2: General appearance: Alert and cooperative with exam Lungs: clear to auscultation bilaterally Heart: regular rate and rhythm, S1, S2 normal, no murmur, click, rub or gallop Abdomen: soft, non-tender; bowel sounds normal; no masses, no organomegaly Extremities: extremities normal, atraumatic, no cyanosis or edema Neurologic: No obvious focal neurologic deficits. Assessment Active Problems: CAD in [place] artery Diabetes mellitus (HCC) Hypertension HFrEF (heart failure with reduced ejection fraction) ([facility]) Resolved Problems: * No resolved hospital problems. * Await CTS and cards review of images, surgical planning--tentative Wednesday CABG PFT read P Increase insulin--her glucose readings seem too high to just be on metformin at home. Will ask endoto see, start scheduled insulin Check A1c Supportive care otherwise See orders, continue POC Advance Directive: Full Code Suzan Trevino Hospitalist * Keren Banks - 02/24/2019 8:47 AM EST Nutrition rescreen completed. Chart reviewed. Patient to be monitored and followed by the diet pathological technician. Keren Banks DT * Mil Pettit MD - 02/23/2019 9:52 AM EST Hospitalist Progress Note 02/23/2019 9:52 AM Subjective: Admit Date: 02/22/2019 PCP: LIANET PETERS Interval History: pt feels ok Some sore throat No overnight issues. Deniesabdominal pain, nausea, vomiting, diarrhea, constipation, fevers, or chills. DIET CARB CONTROL; Date 02/23/19 0000 - 02/23/19 2359 Shift [id number] 7926-5539 1573-5443 24 Hour Total INTAKE Shift Total(mL/kg) OUTPUT Urine(mL/kg/hr) 600(0.9) 600 Shift Total(mL/kg) 600(7.5) 600(7.5) Weight (kg) 79.5 79.5 79.5 79.5 Patient Vitals for the past 96 hrs (Last 3 readings): Weight 02/23/19 0625 175 lb 5 oz (79.5 kg) 02/22/19 1300 176 lb 4.8 oz (80 kg) Medications: dextrose sodium chloride flush 10 mL Intravenous 2 times per day enoxaparin 40 mg Subcutaneous Daily aspirin 81 mg Oral Daily [Held by provider] clopidogrel 75 mg Oral Daily insulin lispro 0-6 Units Subcutaneous TID WC insulin lispro 0-3 Units Subcutaneous Nightly escitalopram 10 mg Oral Daily atorvastatin 40 mg Oral Nightly metoprolol tartrate 25 mg Oral BID lisinopril 10 mg Oral Daily Recent Labs 02/23/19 0625 WBC 8.6 HGB 15.1 PLT 212 Recent Labs 02/23/19 0625 NA 136 K 4.8 CL 106 CO2 21* BUN 24* CREATININE 1.03 GLUCOSE 288* Recent Labs 02/23/19 0625 AST 49* ALT 53 BILITOT 0.5 ALKPHOS 57 No results found for: TRIG, HDL, LDLCALC, CHOL No results for input(s): INR in the last 72 hours. No results for input(s): CKTOTAL, CKMB, TROPONINI in the last 72 hours. Objective: Vitals: BP 126/67 Pulse 82 Temp 97.9 F (36.6 C) (Temporal) Resp 16 Ht 5' 1 (1.549 m) Wt 175 lb 5 oz (79.5 kg) SpO2 92% BMI 33.13 kg/m Pulse Ox: SpO2 Av % Min: 92 % Max: 96 % Supplemental O2: General appearance: Alert and cooperative with exam Lungs: clear to auscultation bilaterally Heart: regular rate and rhythm, S1, S2 normal, no murmur, click, rub or gallop Abdomen: soft, non-tender; bowel sounds normal; no masses, no organomegaly Extremities: extremities normal, atraumatic, no cyanosis or edema Neurologic: No obvious focal neurologic deficits. Assessment Active Problems: CAD in [place] artery Diabetes mellitus (HCC) Hypertension HFrEF (heart failure with reduced ejection fraction) ([facility]) Resolved Problems: * No resolved hospital problems. 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, with long-term current use of insulin ([facility]) Diabetes mellitus ([facility]) Type II or unspecified type diabetes mellitus without mention of complication, not stated as uncontrolled Hypertension Unspecified essential hypertension HFrEF (heart failure with reduced ejection fraction) (HCC) Hyperkalemia Hyperpotassemia Advance Directives No Advanced Directives Records FoundDocuments on File Type Date Recorded 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 This clinical summary was aggregated from multiple sources. Caution should be exercised in using it in the provision of clinical care. This summary normalizes information from multiple sources, and as a consequence, information in this document may materially change the coding, format and clinical context of patient data. In addition, data may be omitted in some cases. CLINICAL DECISIONS SHOULD BE BASED ON THE PRIMARY CLINICAL RECORDS. [employer] provides no warranty or guarantee of the accuracy or completeness of information in this document.
== END | disposition home or self-care (01) ==
LOC: CT 15:46
PROVIDERS: PCP Family Medicine; Referring Provider Family Medicine; Visit Provider Family Medicine
DX: I99.9 Unspecified disorder of circulatory system (principal); E11.9 Type 2 diabetes mellitus without complications; R20.0 Anesthesia of skin; R26.81 Unsteadiness on feet; R51.9 Headache, unspecified; I10 Essential (primary) hypertension; Z79.84 Long term (current) use of oral hypoglycemic drugs
CPT/HCPCS: 70496; 70498; Q9967

== ENCOUNTER → 2023-07-19 | Outpatient (CLI) | payer MEDICARE, SELFPAY ==
[2019-11-14 08:38] VITALS: BMI 31.6
--- NOTE | 2023-07-19 11:17 | RAD_ITS ---
INDICATION: LOW BACK PAIN EXAMINATION/TECHNIQUE: X-RAY - XR Spine Lumbar Min 4 Views COMPARISON: No relevant prior comparison study available FINDINGS: VERTEBRAE: Preserved vertebral body height. No fracture. Minimal anterolisthesis of L4 over L5. Preservation of the normal lumbar lordosis. No substantial scoliosis. DISCS: Vacuum disc at the level of L2-L3. The disc spaces are within normal limits. Endplate spondylosis at multiple levels largest on the right side of the level of L2-L3. INCLUDED ABDOMEN: Atherosclerotic calcifications of the abdominal aorta. RAD/L/S Spine Min 4 Views IMPRESSION: Degenerative changes of the lumbar spine as described above Electronically Signed: Liborio Hook MD at 12:48 EDT ,
--- NOTE | 2023-07-19 11:20 | RAD_ITS ---
STUDY: X-RAY - PELVIS AND RIGHT HIP REASON FOR EXAM: Female, 73 years old. Pain. TECHNIQUE: 3 views of the pelvis and right hip. COMPARISON: None. FINDINGS: There is a non-specific bowel gas pattern. There are atherosclerotic vascular calcifications of the pelvic and femoral arteries. Normal bilateral iliac wings, sacroiliac joints and visualized sacrum. Normal bilateral superior and inferior pubic rami. Normal pubic symphysis. Normal bilateral ischial tuberosities. There are mild osteoarthritic changes of the femoral head with marginal osteophyte formation. There is mild osteoarthritic spur formation of the acetabular rim. Intact hip joints, with no acute fracture. RAD/HIP, UNI W/ Pelvis 2-3 Views IMPRESSION: Mild degenerative arthrosis of the hip joints bilaterally. No acute fracture. Electronically Signed: Benitez Lott MD at 13:51 EDT ,
== END | disposition home or self-care (01) ==
PROVIDERS: PCP Family Medicine; Referring Provider Nurse Practitioner Family; Visit Provider Nurse Practitioner Family
DX: M54.50 Low back pain, unspecified (principal); M25.551 Pain in right hip
CPT/HCPCS: 72110; 73502

== ENCOUNTER 2023-10-01 14:43 | Emergency (ER) | payer MEDICARE, SELFPAY ==
[2019-11-14 08:38] VITALS: BMI 31.6
[2023-10-01 14:45] VITALS: BP 131/85; PULSE 109; RESP 18; TEMP 35.6; O2SAT 97; BMI 34.4
--- NOTE | 2023-10-01 15:11 | EX.ED.DYSGE1 ---
HPI History of Present Illness Chief Complaint: Lower Extremity Injury Informant: patient Onset/Context/Timing Onset: Days (4 days) Context: Gradual Onset Narrative Narrative: Patient presents secondary to right knee pain for the past 4 to 5 days. She has been fighting bronchitis and was recently prescribed her third round of Zithromax along with prednisone. She started that late last week and by Wednesday noted what she thought was a gout flare causing pain to her right knee and right ankle. She was seen by her doctor on Wednesday and told to stop the prednisone. She was seen by her vascular doctor today who recommended she be seen by a doctor because she had redness over her anterior right knee. She has not had any significant swelling. She has had no fever or chills. She has had left knee surgery but no prior surgery or injections on the right knee. [facility] Medical History Palpitations Right rotator cuff tear Trigger finger of both hands Carpal tunnel syndrome on both sides FHx: cholecystectomy History of left heart catheterization (LHC) (~06/03/21) Essential hypertension Mechanical loosening of prosthetic knee Atherosclerosis of [place] coronary artery of [place] heart without angina pectoris PAD (peripheral artery disease) HLD (hyperlipidemia) Type II diabetes mellitus Home Medications ?Medication ?Instructions ?Recorded ?Last Taken ?Type aspirin 81 mg tablet,delayed 81 mg PO DAILY heart health 12/15/13 06/03/21 History release potassium chloride 10 mEq 20 meq (2 x 10 mEq) PO DAILY When 12/09/20 Unknown Rx tablet,extended release taking Lasix #180 tabs nitroglycerin 0.4 mg sublingual 0.4 mg sublingual Q5-15M PRN chest 05/26/21 Unknown Rx tablet pain #90 tabs oxycodone-acetaminophen 5 mg-325 1 tab PO Q8H PRN pain 3 days #9 03/29/22 Unknown Rx mg tablet (Percocet) tabs colchicine 0.6 mg tablet 0.6 mg PO DAILY 08/20/22 Unknown History duloxetine 60 mg capsule,delayed 60 mg PO DAILY 08/20/22 Unknown History release glimepiride 4 mg tablet 4 mg PO BID 08/20/22 Unknown History insulin aspar prot-insulin aspart 60 unit subcut QAM 08/20/22 Unknown History 100 unit/mL (70-30) subcutaneous pen (Novolog Mix 70-30FlexPen U-100) insulin aspar prt-insulin aspart 65 unit subcut QPM 08/20/22 Unknown History 100 unit/mL (70-30) subcutaneous soln (Novolog Mix 70-30 U-100 Insuln) metoprolol tartrate 50 mg tablet 50 mg PO BID This is a dose 12/03/22 Unknown Rx increase #180 tabs rosuvastatin 10 mg tablet See Rx Instructions .Route 04/06/23 Unknown Rx .COMPLEX #90 TABLETS furosemide 40 mg tablet 40 mg PO DAILY #90 TABLETS 08/02/23 Unknown Rx isosorbide mononitrate 60 mg 60 mg PO BID #180 TABLETS 09/22/23 Unknown Rx tablet,extended release 24 hr doxycycline monohydrate 100 mg 100 mg PO BID #20 CAPSULES 10/01/23 Unknown Rx capsule Allergy/AdvReac Type Severity Reaction Status Date / Time cefazolin Allergy Shortness Verified 10/01/23 14:44 of breath codeine Allergy Shortness Verified 10/01/23 14:44 of breath morphine Allergy Other Verified 10/01/23 14:44 naloxone (Naloxone) Allergy Shortness Verified 10/01/23 14:44 of breath pentazocine Allergy Shortness Verified 10/01/23 14:44 of breath pentazocine lactate (From Allergy Shortness Verified 10/01/23 14:44 Tal[place]) of breath atorvastatin AdvReac Severe Severe Verified 10/01/23 14:44 myalgias acetaminophen (From Tylenol) AdvReac Nausea Verified 10/01/23 14:44 Family History Mother Heart disease Surgical History History of coronary artery bypass graft x 3 (~02/27/19) History of prosthetic unicompartmental arthroplasty of left knee Status post left heart catheterization (LHC) (~02/22/19) Social History Smoking Status: Former smoker how long ago did patient quit smokin years ago alcohol intake: current alcohol intake frequency: holidays/special occasions only substance use type: does not use caffeine: Yes Type: coffee Number of servings: 2 ROS ROS ED Constitutional Constitutional ED: Denies chills or fever(s) ENT ENT ED: Denies rhinorrhea or sore throat Cardiovascular Cardiovascular: Denies chest pain Respiratory/Chest Respiratory/Chest: Reports cough; Denies dyspnea Gastrointestinal Gastrointestinal: Denies abdominal pain, nausea or vomiting Musculoskeletal Musculoskeletal: Reports extremity pain; Denies back pain Integumentary Reports rash; Denies Abrasions Neurologic Neurologic: Denies headache(s) or weakness Psychiatric Psychiatric: Denies anxiety or depression Allergic/Immunologic Allergic/Immunologic ED: Denies lip swelling or urticaria EXAM Physical Exam Const Vital Signs: 10/01/23 14:45 Temperature 96.1 F L Temperature Source Temporal Pulse Rate 109 H Respiratory Rate 18 Blood Pressure 131/85 H Blood Pressure Mean 100 Pulse Ox 97 Oxygen Delivery Method Room Air Positive well nourished and well developed General Appearance ED: well developed HEENT Reports moist mucous membranes Eyes EOMs intact bilaterally Chest Wall inspection of chest normal and palpation of chest normal Resp normal respiratory effort and clear to auscultation bilaterally Cardio regular rate and regular rhythm GI non-tender Palpation: soft Extremity Extremity Narrative: Round area of erythema measuring approximately 6 cm in diameter over the anterior right knee. Skin is slightly warm to the touch. Knee is not edematous. She is able to flex her knee to sit her heel on the bed without difficulty. Ligaments are tight on testing. Neuro oriented x3 and no sensory deficits noted Motor Exam: strength 5/5 throughout Psych mental status grossly normal MDM MDM MDM Narrative Medical decision making narrative: Right knee x-rays obtained to evaluate for any acute bony destruction or injury. Radiography Diagnostic Testing: Clinical Impression(s) from Imaging Studies Knee X-Ray 10/01/23 15:15 IMPRESSION: No fracture or dislocation in the right knee. Mild degenerative change. Electronically Signed: Mil Castañeda MD at 15:46 EDT , Treatment and Re-Evaluation :: Right knee x-rays per my interpretation reveal no acute bony changes. Radiology interpretation reviewed and agrees. Test results discussed with the patient. I do feel that she has a focal cellulitis over the skin on the anterior knee. She does not have evidence of a joint infection. I will switch her antibiotics to doxycycline which will cover both the bronchitis as well as the skin infection. She does have an allergy listed to cephalosporins. Area of erythema is outlined with a surgical marker for her to monitor at home. Return instructions provided. Discharge Plan Triage Chief Complaint: Lower Extremity Injury ED Provider: Keren Cordova Dx/Rx/DC Orders Clinical Impression: Cellulitis, Bronchitis Instructions: ED Upper Resp Infec Abx Tx, ED Cellulitis Prescriptions: New doxycycline monohydrate 100 mg capsule 100 mg PO BID Qty: 20 0RF No Action glimepiride 4 mg tablet 4 mg PO BID nitroglycerin 0.4 mg tablet, sublingual 0.4 mg sublingual Q5-15M PRN (Reason: chest pain) Qty: 90 6RF Rx Instructions: do not exceed 3 doses per episode colchicine 0.6 mg tablet 0.6 mg PO DAILY insulin asp prt-insulin aspart [Novolog Mix 70-30FlexPen U-100] 100 unit/mL (70-30) insulin pen 60 unit subcut QAM insulin asp prt-insulin aspart [Novolog Mix 70-30 U-100 Insuln] 100 unit/mL (70-30) solution 65 unit subcut QPM duloxetine 60 mg capsule,delayed release(DR/EC) 60 mg PO DAILY aspirin 81 MG tablet 81 mg PO DAILY oxycodone-acetaminophen [Percocet] 5-325 mg tablet 1 tab PO Q8H PRN (Reason: pain) 3 Days Qty: 9 0RF potassium chloride 10 mEq tablet extended release 20 meq PO DAILY Qty: 180 3RF Rx Instructions: Take when taking Lasix. metoprolol tartrate 50 mg tablet 50 mg PO BID Qty: 180 3RF rosuvastatin 10 mg tablet See Rx Instructions .ROUTE .COMPLEX Qty: 90 3RF Dose Instruction: TAKE 1 TABLET BY MOUTH EVERY DAY Rx Instructions: TAKE 1 TABLET BY MOUTH EVERY DAY furosemide 40 mg tablet 40 mg PO DAILY Qty: 90 3RF isosorbide mononitrate 60 mg tablet extended release 24 hr 60 mg PO BID Qty: 180 3RF Primary Care Provider: Marielos Perla Referrals: Marielos Perla DO [Primary Care Provider] - 1-2 Weeks Print Language: Sami Disposition Disposition: Home, Self Care
--- NOTE | 2023-10-01 15:15 | RAD_ITS ---
STUDY: X-RAY - RIGHT KNEE REASON FOR EXAM: Female, 73 years old. Pain TECHNIQUE: 4 view(s) of the knee. COMPARISON: None. FINDINGS: There is no evidence of fracture or dislocation. There are mild degenerative changes. There are vascular calcifications noted. There are no radiodense foreign bodies. RAD/Knee 4 or More Views IMPRESSION: No fracture or dislocation in the right knee. Mild degenerative change. Electronically Signed: Mil Castañeda MD at 15:46 EDT ,
[2023-10-01 15:59] VITALS: BP 129/66; PULSE 89; RESP 16; TEMP 36.1; O2SAT 97
[2023-10-01] MEDS: Doxycycline 100 MG CAPSULE PO (15:59)
== END 2023-10-01 16:00 | disposition home or self-care (01) ==
PROVIDERS: Emergency Provider Emergency Medicine; PCP Family Medicine; Visit Provider Emergency Medicine
DX: L03.115 Cellulitis of right lower limb (principal); E11.51 Type 2 diabetes mellitus with diabetic peripheral angiopathy without gangrene; J40 Bronchitis, not specified as acute or chronic; I10 Essential (primary) hypertension; I25.10 Atherosclerotic heart disease of native coronary artery without angina pectoris; E78.5 Hyperlipidemia, unspecified; Z79.82 Long term (current) use of aspirin; Z79.84 Long term (current) use of oral hypoglycemic drugs; Z79.899 Other long term (current) drug therapy; Z87.891 Personal history of nicotine dependence; Z88.1 Allergy status to other antibiotic agents
CPT/HCPCS: 73564; 99282

== ENCOUNTER → 2023-10-01 | Outpatient (CLI) | payer MEDICARE, SELFPAY ==
[2019-11-14 08:38] VITALS: BMI 31.6
--- NOTE | 2023-10-01 13:44 | ART_ITS ---
Reason For Study: PVD Procedure A bilateral lower extremity continuous wave Doppler with analog waveform analysis and ankle brachial indexes. Left Segmental Pressures Left brachial= 143mmHg. Left posterior tibial artery = 80mmHg. Left dorsalis pedis artery = 65mmHg. Left digit = 41 mmHg. The left posterior tibial artery waveforms are monophasic. The left dorsalis pedis waveforms are biphasic. Right Segmental Pressures Right brachial= 137mmHg. Right posterior tibial artery = 79mmHg. Right dorsalis pedis artery = 102mmHg. Right digit = 57 mmHg. The right posterior tibial artery waveforms are monophasic. The right dorsalis pedis waveforms are monophasic. Indices The right resting ankle brachial index is 0.71. The right ankle brachial index by the posterior tibial artery is 0.55. The right ankle brachial index by the dorsalis pedis is 0.71. The right digital-brachial index is 0.40. The left resting ankle brachial index is 0.56. The left ankle brachial index by the posterior tibial artery is 0.56. The left ankle brachial index by the dorsalis pedis is 0.45. The left digital-brachial index is 0.29. VL/Ankle Brachial Index Interpretation Summary The right resting ankle-brachial index appears mildly abnormal. The left restin g ankle-brachial index appears moderately abnormal. Ordering Physician: Moose Singh Referring Physician: Marielos Perla Performed By: Sylvia Gutierrez RVT, RDCS and Student
== END | disposition home or self-care (01) ==
LOC: CVS 13:42
PROVIDERS: PCP Family Medicine; Referring Provider Surgery Vascular Surgery; Visit Provider Surgery Vascular Surgery
DX: I73.9 Peripheral vascular disease, unspecified (principal)
CPT/HCPCS: 93922

== ENCOUNTER → 2023-10-11 | Outpatient (CLI) | payer MEDICARE, SELFPAY ==
[2019-11-14 08:38] VITALS: BMI 31.6
== END | disposition home or self-care (01) ==
LOC: BFHLAB 13:40
PROVIDERS: PCP Family Medicine; Referring Provider Family Medicine; Visit Provider Family Medicine
DX: Z51.81 Encounter for therapeutic drug level monitoring (principal); M10.9 Gout, unspecified
CPT/HCPCS: 36415; 80053; 84550

== ENCOUNTER → 2023-10-12 | Outpatient (CLI) | payer MEDICARE, SELFPAY ==
[2019-11-14 08:38] VITALS: BMI 31.6
[2023-10-12 12:43] LABS: ALB/GLOB Ratio 0.7 RATIO (0.9-2.4); AST(SGOT) 15 U/L (15-37); Alanine Aminotransfer ALT/SGPT 22 U/L (13-56); Alkaline Phosphatase 88 U/L (45-117); Anion Gap 6 (5-15); BUN 36 mg/dL (7-18); BUN/Creat Ratio 23.7 RATIO (10-20); Calcium,Total 9.5 mg/dL (8.5-10.1); Chloride 105 mmol/L (98-107); Creatinine, Serum 1.52 mg/dL (0.55-1.02); EST Glomerular Filtration Rate 36 mL/min (>60); Est Glom Filt Rate - Afr Amer 43 mL/min (>60); Globulin 4.5 g/dL (2.2-4.2); Glucose 148 mg/dL (74-106); Potassium 3.5 mmol/L (3.5-5.1); Protein, Total 7.5 g/dL (6.4-8.2); Sodium Level 139 mmol/L (136-145)
== END | disposition home or self-care (01) ==
LOC: BFHLAB 10:59
PROVIDERS: PCP Family Medicine; Referring Provider Family Medicine; Visit Provider Family Medicine
DX: Z51.81 Encounter for therapeutic drug level monitoring (principal); M10.9 Gout, unspecified
CPT/HCPCS: 36415; 80053

== ENCOUNTER → 2023-11-15 | Outpatient (CLI) | payer MEDICARE, SELFPAY ==
[2019-11-14 08:38] VITALS: BMI 31.6
--- NOTE | 2023-11-15 14:14 | RAD_ITS ---
INDICATION: PAIN EXAMINATION/TECHNIQUE: X-RAY - RIGHT XR Foot Min 3 Views 3 VIEWS COMPARISON: No relevant prior comparison study available FINDINGS: SOFT TISSUES: No soft tissue swelling or gas. No radiopaque foreign body. BONES/JOINTS: No acute fracture or subluxation.. Posterior and plantar calcaneal spurs. Mild narrowing with marginal degenerative spurs of the first metatarsophalangeal joint. No sclerotic or destructive changes observed. 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 Calcaneal spurs. Electronically Signed: Liborio Hook MD at 9:33 EDT ,
--- NOTE | 2023-11-15 14:14 | RAD_ITS ---
INDICATION: PAIN EXAMINATION/TECHNIQUE: X-RAY - LEFT XR Foot Min 3 Views 3 VIEWS COMPARISON: Prior study dated: 01/23/2008 FINDINGS: SOFT TISSUES: No soft tissue swelling or gas. No radiopaque foreign body. BONES/JOINTS: No acute fracture or subluxation.. Plantar and posterior calcaneal spurs. Moderate degenerative arthrosis of the first metatarsophalangeal joint with marginal degenerative spurs. No sclerotic or destructive changes observed. RAD/Foot min 3 Views IMPRESSION: Degenerative arthrosis. Electronically Signed: Liborio Hook MD at 9:32 EDT ,
--- NOTE | 2023-11-15 14:14 | RAD_ITS ---
INDICATION: PAIN EXAMINATION/TECHNIQUE: X-RAY - RIGHT XR Ankle Min 3 Views 3 VIEWS COMPARISON: No relevant prior comparison study available FINDINGS: SOFT TISSUES: Soft tissue swelling of the lateral aspect of the ankle. No radiopaque foreign body. BONES/JOINTS: No acute fracture or subluxation.. Posterior calcaneal spur. Mild cystic changes of the navicular bone. No sclerotic or destructive changes observed. RAD/Ankle min 3 Views IMPRESSION: Mild degenerative changes Electronically Signed: Liborio Hook MD at 9:36 EDT ,
--- NOTE | 2023-11-15 14:15 | RAD_ITS ---
INDICATION: PAIN EXAMINATION/TECHNIQUE: X-RAY - LEFT XR Ankle Min 3 Views 3 VIEWS COMPARISON: No relevant prior comparison study available FINDINGS: SOFT TISSUES: No soft tissue swelling or gas. No radiopaque foreign body. BONES/JOINTS: No acute fracture or subluxation.. Plantar posterior calcaneal spurs. Preservation of the joint space.. No sclerotic or destructive changes observed. RAD/Ankle min 3 Views IMPRESSION: Calcaneal spurs. Electronically Signed: Liborio Hook MD at 9:34 EDT ,
[2023-11-15 18:11] LABS: ALB/GLOB Ratio 0.6 RATIO (0.9-2.4); AST(SGOT) 19 U/L (15-37); Alanine Aminotransfer ALT/SGPT 21 U/L (13-56); Albumin, Serum 3.1 g/dL (3.2-5.0); Alkaline Phosphatase 94 U/L (45-117); Anion Gap 6 (5-15); BUN 19 mg/dL (7-18); BUN/Creat Ratio 15.3 RATIO (10-20); Calcium,Total 9.8 mg/dL (8.5-10.1); Chloride 99 mmol/L (98-107); Creatinine, Serum 1.24 mg/dL (0.55-1.02); EST Glomerular Filtration Rate 45 mL/min (>60); Est Glom Filt Rate - Afr Amer 54 mL/min (>60); Glucose 177 mg/dL (74-106); Potassium 3.5 mmol/L (3.5-5.1); Protein, Total 8.1 g/dL (6.4-8.2); Sodium Level 134 mmol/L (136-145); Uric Acid 2.8 mg/dL (2.6-6.0)
== END | disposition home or self-care (01) ==
PROVIDERS: PCP Family Medicine; Referring Provider Family Medicine; Visit Provider Family Medicine
DX: M10.9 Gout, unspecified (principal); M25.579 Pain in unspecified ankle and joints of unspecified foot; M79.671 Pain in right foot; M79.672 Pain in left foot; Z51.81 Encounter for therapeutic drug level monitoring
CPT/HCPCS: 36415; 73610; 73630; 80053; 84550

== ENCOUNTER → 2024-01-27 | Outpatient (CLI) | payer MEDICARE, SELFPAY ==
[2019-11-14 08:38] VITALS: BMI 31.6
[2024-01-27 12:19] LABS: Absolute Lymphocyte Count 1.72 X10^3/uL (0.83-4.51); Basophil# 0.05 X10^3/uL; Basophil% 0.6 % (0-1); Eosinophil# 1.08 X10^3/uL; Eosinophils% 12.8 % (0-5); Hematocrit 43.8 % (37-47); Hemoglobin 13.8 g/dL (12.0-15.0); Lymphocyte # 1.72 X10^3/ul (0.83-4.51); Lymphocyte % 20.3 % (19-41); Mean Corp Hgb Conc 31.5 g/dL (32-36); Mean Corpuscular Hgb 29.7 pg (27.0-32.0); Mean Corpuscular Volume 94.4 fL (81-99); Mean Platelet Vol. 11.1 fl (6.2-12.0); Monocyte% 7.1 % (0-10); NRBC Flagged by Analyzer 0 % (0-5); Neutrophil # 4.97 X10^3/uL (2.7-7.7); Neutrophil % 58.7 % (47-70); Platelet Count 296 K/mm3 (150-450); RBC Distribution Width CV 15.8 % (11.6-14.6); RBC Distribution Width SD 54.3 fl (35.1-43.9); Red Blood Count 4.64 M/mm3 (4.2-5.4); White Blood Count 8.5 K/mm3 (4.4-11.0)
[2024-01-27 13:01] LABS: ALB/GLOB Ratio 0.8 RATIO (0.9-2.4); AST(SGOT) 20 U/L (15-37); Alanine Aminotransfer ALT/SGPT 18 U/L (13-56); Albumin, Serum 3.2 g/dL (3.2-5.0); Alkaline Phosphatase 84 U/L (45-117); Anion Gap 6 (5-15); BUN 33 mg/dL (7-18); BUN/Creat Ratio 23.6 RATIO (10-20); Calcium,Total 9.3 mg/dL (8.5-10.1); Chloride 106 mmol/L (98-107); Cholesterol 135 mg/dL (200); EST Glomerular Filtration Rate 39 mL/min (>60); Est Glom Filt Rate - Afr Amer 47 mL/min (>60); Globulin 4.1 g/dL (2.2-4.2); Glucose 168 mg/dL (74-106); High Density Lipoprotein 48 mg/dL; Potassium 3.4 mmol/L (3.5-5.1); Protein, Total 7.3 g/dL (6.4-8.2); Sodium Level 139 mmol/L (136-145); Triglycerides 180 mg/dL; Very Low Density Lipoprotein 36 mg/dL (5-40)
[2024-01-27 13:16] LABS: Microalbumin:Creatinine Ratio 901.9 mg/g CRE (<30 mg/g CRE)
== END | disposition home or self-care (01) ==
LOC: BFHLAB 09:42
PROVIDERS: PCP Family Medicine; Referring Provider Family Medicine; Visit Provider Family Medicine
DX: E11.65 Type 2 diabetes mellitus with hyperglycemia (principal); Z51.81 Encounter for therapeutic drug level monitoring; Z78.1 Physical restraint status
CPT/HCPCS: 36415; 80053; 80061; 82043; 82570; 85025

== ENCOUNTER 2024-02-19 14:06 | Observation (INO) | payer MEDICARE, SELFPAY ==
[2019-11-14 08:38] VITALS: BMI 31.6
[2024-02-19] VITALS (10 sets, daily range): BP systolic 123–151; BP diastolic 54–128; PULSE 91–106; RESP 18–23; TEMP 36.4–36.8; O2SAT 92–96; BMI 34.5; BMI 34.7
--- NOTE | 2024-02-19 14:16 | EKG12_ITS ---
Test Reason : CP Blood Pressure : */* mmHG Vent. Rate : 111 BPM Atrial Rate : 111 BPM P-R Int : 142 ms QRS Dur : 74 ms QT Int : 350 ms P-R-T Axes : 50 23 95 degrees QTcB Int : 476 ms Sinus tachycardia Nonspecific ST and T wave abnormality Abnormal ECG Confirmed by FELIPE ROMERO, ANTONIO ([id number]), mapping editor SHILPA VALENZUELA ([id number]) on 02/21/2024 9:44:03 AM Referred By: Confirmed By: ANTONIO WANG MD
--- NOTE | 2024-02-19 14:20 | RAD_ITS ---
EXAM: XR CHEST, 1 VIEW CLINICAL INDICATION: chest pain TECHNIQUE: Frontal view of the chest. COMPARISON: XR Chest dated 05/27/2021 FINDINGS: LUNGS AND PLEURAL SPACES: Normal. No consolidation or edema. No pneumothorax. No effusion. HEART: Surgical changes of coronary artery bypass graft (CABG). Normal heart size. MEDIASTINUM: No mediastinal or hilar mass. BONES/JOINTS: No acute abnormality. RAD/Chest 1 View (Portable) IMPRESSION: No acute cardiopulmonary abnormality. No interval change. Electronically Signed: Cirilo Ybarra MD at 15:14 EDT ,
[2024-02-19 14:26] LABS: Absolute Lymphocyte Count 1.79 X10^3/uL (0.83-4.51); Absolute Neutrophil Count 7.8 X10^3/uL (2.0-7.7); Basophil# 0.07 X10^3/uL; Basophil% 0.6 % (0-1); Eosinophil# 0.88 X10^3/uL; Eosinophils% 7.8 % (0-5); Hematocrit 44.1 % (37-47); Hemoglobin 14.8 g/dL (12.0-15.0); Lymphocyte # 1.79 X10^3/ul (0.83-4.51); Lymphocyte % 15.8 % (19-41); Mean Corp Hgb Conc 33.6 g/dL (32-36); Mean Corpuscular Hgb 30.6 pg (27.0-32.0); Mean Corpuscular Volume 91.3 fL (81-99); Monocyte# 0.77 X10^3/uL; Monocyte% 6.8 % (0-10); NRBC Flagged by Analyzer 0 % (0-5); Neutrophil # 7.77 X10^3/uL (2.7-7.7); Neutrophil % 68.6 % (47-70); Platelet Count 276 K/mm3 (150-450); RBC Distribution Width CV 15.4 % (11.6-14.6); RBC Distribution Width SD 51.3 fl (35.1-43.9); Red Blood Count 4.83 M/mm3 (4.2-5.4); White Blood Count 11.3 K/mm3 (4.4-11.0)
[2024-02-19 14:43] LABS: Anion Gap 7 (5-15); BUN 19 mg/dL (7-18); BUN/Creat Ratio 11.9 RATIO (10-20); Calcium,Total 9.2 mg/dL (8.5-10.1); Chloride 104 mmol/L (98-107); EST Glomerular Filtration Rate 34 mL/min (>60); Est Glom Filt Rate - Afr Amer 41 mL/min (>60); Estimated Creatinine Clearance 31.34 ml/min; Glucose 203 mg/dL (74-106); Potassium 3.8 mmol/L (3.5-5.1); Sodium Level 139 mmol/L (136-145); Troponin-I HS (w/2H Reflex) 19 pg/mL (3.0-54.0)
[2024-02-19 14:47] LABS: International Normalized Ratio 1.1
--- NOTE | 2024-02-19 15:15 | EDS_ITS ---
HPI History of Present Illness Chief Complaint: Chest Pain Informant: patient Onset/Context/Timing Onset: Today, Yesterday and Hours Activity at onset: gradual Timing: Continuous Quality: Positive for Aching and Heaviness Location: Left Chest Current Severity: Mild Maximum Severity: Mild Worsened By: Exertion Relieved By: Nothing Associated Symptoms: Positive for Nausea and Dyspnea Narrative Narrative: 74-year-old female history of CAD, PAD, diabetes and prior triple bypass in 2019 5 years ago. States she has had chest discomfort since yesterday. Left side of her chest radiates to her left arm feels like a heaviness. Associated shortness of breath. No history of DVT or PE risk factors. She is having exertional dyspnea. Denies any leg swelling or hemoptysis. Prior Similar Symptoms: No Recent Illness/Hospitalization: No CVD Risk Factors: Positive for Diabetes PE Risk Factors: Negative for Recent Travel/Surgery, Recent Immobilization, Prior DVT or PE, Cancer or OCP + Smoking + >/=35 TAD Risk Factors: Positive for Marfan's Syndrome PFSH PFS Medical History Palpitations Right rotator cuff tear Trigger finger of both hands Carpal tunnel syndrome on both sides FHx: cholecystectomy History of left heart catheterization (LHC) (~06/03/21) Essential hypertension Mechanical loosening of prosthetic knee Atherosclerosis of [place] coronary artery of [place] heart without angina pectoris PAD (peripheral artery disease) HLD (hyperlipidemia) Type II diabetes mellitus Home Medications ?Medication ?Instructions ?Recorded ?Last Taken ?Type aspirin 81 mg tablet,delayed 81 mg PO DAILY heart health 12/15/13 06/03/21 History release nitroglycerin 0.4 mg sublingual 0.4 mg sublingual Q5-15M PRN chest 05/26/21 Unknown Rx tablet pain #90 tabs oxycodone-acetaminophen 5 mg-325 1 tab PO Q8H PRN pain 3 days #9 03/29/22 Unknown Rx mg tablet (Percocet) tabs duloxetine 60 mg capsule,delayed 60 mg PO DAILY 08/20/22 Unknown History release glimepiride 4 mg tablet 4 mg PO BID 08/20/22 Unknown History insulin aspar prot-insulin aspart 60 unit subcut QAM 08/20/22 Unknown History 100 unit/mL (70-30) subcutaneous pen (Novolog Mix 70-30FlexPen U-100) insulin aspar prt-insulin aspart 65 unit subcut QPM 08/20/22 Unknown History 100 unit/mL (70-30) subcutaneous soln (Novolog Mix 70-30 U-100 Insuln) rosuvastatin 10 mg tablet See Rx Instructions .Route 04/06/23 Unknown Rx .COMPLEX #90 TABLETS furosemide 40 mg tablet 40 mg PO DAILY #90 TABLETS 08/02/23 Unknown Rx isosorbide mononitrate 60 mg 60 mg PO BID #180 TABLETS 09/22/23 Unknown Rx tablet,extended release 24 hr allopurinol 300 mg tablet 300 mg PO BID 11/05/23 Unknown History cilostazol 100 mg tablet 100 mg PO BID 11/05/23 Unknown History metoprolol tartrate 50 mg tablet 50 mg PO BID This is a dose 12/13/23 Unknown Rx increase #180 tabs Allergy/AdvReac Type Severity Reaction Status Date / Time cefazolin Allergy Shortness Verified 11/05/23 11:31 of breath codeine Allergy Shortness Verified 11/05/23 11:31 of breath morphine Allergy Other Verified 11/05/23 11:31 naloxone (Naloxone) Allergy Shortness Verified 11/05/23 11:31 of breath pentazocine Allergy Shortness Verified 11/05/23 11:31 of breath pentazocine lactate (From Allergy Shortness Verified 11/05/23 11:31 [place]) of breath atorvastatin AdvReac Severe Severe Verified 11/05/23 11:31 myalgias acetaminophen (From Tylenol) AdvReac Nausea Verified 11/05/23 11:31 Family History Mother Heart disease Surgical History History of coronary artery bypass graft x 3 (~02/27/19) History of prosthetic unicompartmental arthroplasty of left knee Status post left heart catheterization (LHC) (~02/22/19) Social History Smoking Status: Former smoker how long ago did patient quit smokin years ago alcohol intake: current alcohol intake frequency: holidays/special occasions only substance use type: does not use caffeine: Yes Type: coffee Number of servings: 2 ROS ROS ED ROS Narrative Chest pain. Exertional dyspnea. Constitutional Constitutional ED: Denies chills or fever(s) Eyes Eyes: Reports none ENT ENT ED: Denies ear pain Cardiovascular Cardiovascular: Reports as per HPI and chest pain Respiratory/Chest Respiratory/Chest: Reports dyspnea and dyspnea on exertion; Denies cough Gastrointestinal Gastrointestinal: Denies abdominal pain Genitourinary Genitourinary ED: Denies dysuria or hematuria Musculoskeletal Musculoskeletal: Denies arthralgias Integumentary Denies abscess or Abrasions Neurologic Neurologic: Denies headache(s) Psychiatric Psychiatric: Denies anxiety or depression Hematologic/Lymphatic Hematologic/Lymphatic: Denies easy bleeding or easy bruising Allergic/Immunologic Allergic/Immunologic ED: Denies mouth swelling, tongue swelling or urticaria EXAM Physical Exam Narrative Exam Narrative: Well-appearing 74-year-old female para vital signs are stable. She is afebrile. She does not look septic or toxic. Pulse ox 95% room air no hypoxia. H EENT exam unremarkable. Neck nontender. No JVD. Lungs clear to auscultation bilaterally. Heart regular rhythm rate about 105 no murmur. Chest wall has mild tenderness and not the same pain she is discussing. Prior sternotomy. Well-healed. Abdomen soft, nontender, nondistended normal bowel sounds without peritoneal signs. Moving all 4 extremities. Equal symmetrical radial pulses. Calves are nontender without edema or cords. Neurologically she is awake and alert no focal motor deficits. Answer questions following commands Const Vital Signs: 02/19/24 14:07 02/19/24 14:17 02/19/24 15:08 Temperature 98.3 F Temperature Source Oral Pulse Rate 106 H 97 Respiratory Rate 18 19 H Blood Pressure 129/54 H Blood Pressure Mean 79 Pulse Ox 95 96 Oxygen Delivery Method Room Air Room Air 02/19/24 16:26 02/19/24 17:02 Temperature Temperature Source Pulse Rate 97 92 Respiratory Rate 18 22 H Blood Pressure 132/62 H 147/71 H Blood Pressure Mean 85 96 Pulse Ox 95 95 Oxygen Delivery Method Positive well nourished and well developed; Negative for cachectic, contractures or unkempt General Appearance ED: well developed and NAD; Negative for unkempt, cachectic, contractures or pallor Nutritional Appearance: Negative for cachectic HEENT Reports moist mucous membranes normocephalic and atraumatic; Negative for trauma or tenderness Eyes PERRL and EOMs intact bilaterally General Eye ED: Negative for pale conjunctiva or scleral icterus Neck no lymphadenopathy, supple and no JVD General: Negative for tenderness Chest Wall inspection of chest normal and palpation of chest normal Chest: Negative for tenderness Resp normal respiratory effort and clear to auscultation bilaterally Effort and Inspection: Negative for respiratory distress Auscultation: Negative for rales, rhonchi or diminished lung sounds Cardio regular rhythm, S1 normal heart sound, S2 normal heart sound and no murmurs; Negative for regular rate Rate: tachycardic GI normal to inspection, nondistended, normoactive bowel sounds, soft to palpation, non-tender, non-distended and no masses Back/Spine no CVA tenderness and no thoracic nor lumbar tenderness General Back: Negative for CVA tenderness Cervical Spine: Negative for cervical spine tenderness Extremity normal to inspection General Extremety ED: Negative for edema, pulses abnormal or tenderness General Extremity: Negative for edema or pulses abnormal Neuro oriented x3 and CN's II-XII intact bilaterally Sensorium / Orientation: awake, alert, oriented to person, oriented to place and oriented to time; Negative for confused, lethargic or stuporous Motor Exam: strength 5/5 throughout Psych mental status grossly normal Appearance: Negative for unkempt Attitude: No agitated Mood & Affect: Negative for depressed, anxious or tearful Skin no rashes or lesions noted and no wounds General Skin Exam: Negative for jaundice or pallor Rashes: No rashes noted Trauma: Negative for abrasion, laceration or puncture Heart Score History: Moderately Suspicious ECG: Normal Age: >/= 65 years Risk Factors: >/= 3 Risk Factors or History of CAD Troponin: </= Normal Limit Score: 5 MDM MDM MDM Narrative Medical decision making narrative: 74-year-old female with prior CABG 5 years ago. No heart cath the last several years. Planing of chest pain with exertional dyspnea. Exam benign. Repeat exam unchanged. With her exertional symptoms and her cardiac history and last heart cath I spoke to the hospitalist she will be admitted for further evaluation workup. History & Record Review Discussion w/independent historian: Patient and Family Additional record(s) reviewed:: Prior inpatient record, Prior outpatient record, Prior ED visit and Prior labs Lab Data Attestation: I reviewed the patient's lab results. Lab results narrative: CBC white count 11.3. H&H 14 and 44. Platelets 276. PT/INR 14 1. Electrolytes show gap 7. BUN and creatinine 19 and 1.6 she has a history of renal insufficiency. Glucose 203. Initial troponin 19. 2-hour troponin is 20. Labs: Laboratory Results - last 24 hr 02/19/24 02/19/24 14:13 16:19 WBC 11.3 H RBC 4.83 Hgb 14.8 Hct 44.1 MCV 91.3 MCH 30.6 MCHC 33.6 RDW Std Deviation 51.3 H RDW Coeff of Dede 15.4 H Plt Count 276 MPV 11.0 Immature Gran % (Auto) 0.400 Neut % (Auto) 68.6 Lymph % (Auto) 15.8 L [place] % (Auto) 6.8 Eos % (Auto) 7.8 H Baso % (Auto) 0.6 Absolute Neuts (auto) 7.8 H Absolute Lymphs (auto) 1.79 Nucleated RBC % 0 PT 14.0 INR 1.1 Sodium 139 Potassium 3.8 Chloride 104 Carbon Dioxide 28.0 Anion Gap 7 BUN 19 H Creatinine 1.60 H Estim Creat Clear Calc 31.34 Est GFR (MDRD) Af Amer 41 L Est GFR (MDRD) Non-Af 34 L BUN/Creatinine Ratio 11.9 Glucose 203 H Calcium 9.2 Troponin I High Sens 19 20 Radiography Chest X-Ray - ED: 1 View, Read by ED Physician, Heart, Lungs, Mediastinum, Bony Structures, No Acute Disease and Chronic Changes Diagnostic Testing: Clinical Impression(s) from Imaging Studies Chest X-Ray 02/19/24 14:20 IMPRESSION: No acute cardiopulmonary abnormality. No interval change. Electronically Signed: Cirilo Ybarra MD at 15:14 EDT , Chest x-ray, portable, single view interpreted by myself shows normal cardiac silhouette. Prior sternotomy. No acute findings. Lungs are unremarkable. Chronic changes. Rhythm Strip Rhythm Strip: Sinus Tach Rate: 111 Ectopy: None EKG Initial EKG: Attestation: I personally reviewed and interpreted this EKG as follows: Interpretation: No Acute Injury Pattern and Sinus Tachycardia Comments: Sinus tachycardia rate of 111 no acute signs of UT or ischemia. Nonspecific ST-T wave changes laterally. Discharge Plan Triage Chief Complaint: Chest Pain ED Provider: Moris Watson Dx/Rx/DC Orders Clinical Impression: Chest pain, Type II diabetes mellitus, Exertional dyspnea, Hx of CABG Prescriptions: No Action glimepiride 4 mg tablet 4 mg PO BID nitroglycerin 0.4 mg tablet, sublingual 0.4 mg sublingual Q5-15M PRN (Reason: chest pain) Qty: 90 6RF Rx Instructions: do not exceed 3 doses per episode insulin asp prt-insulin aspart [Novolog Mix 70-30FlexPen U-100] 100 unit/mL (70-30) insulin pen 60 unit subcut QAM insulin asp prt-insulin aspart [Novolog Mix 70-30 U-100 Insuln] 100 unit/mL (70-30) solution 65 unit subcut QPM duloxetine 60 mg capsule,delayed release(DR/EC) 60 mg PO DAILY cilostazol 100 mg tablet 100 mg PO BID allopurinol 300 mg tablet 300 mg PO BID aspirin 81 MG tablet 81 mg PO DAILY oxycodone-acetaminophen [Percocet] 5-325 mg tablet 1 tab PO Q8H PRN (Reason: pain) 3 Days Qty: 9 0RF rosuvastatin 10 mg tablet See Rx Instructions .ROUTE .COMPLEX Qty: 90 3RF Dose Instruction: TAKE 1 TABLET BY MOUTH EVERY DAY Rx Instructions: TAKE 1 TABLET BY MOUTH EVERY DAY furosemide 40 mg tablet 40 mg PO DAILY Qty: 90 3RF isosorbide mononitrate 60 mg tablet extended release 24 hr 60 mg PO BID Qty: 180 3RF metoprolol tartrate 50 mg tablet 50 mg PO BID Qty: 180 3RF Primary Care Provider: Marielos Perla Referrals: Marielos Perla DO [Primary Care Provider] - Print Language: Pashto Disposition Disposition: Acute Care Hospital [facility]
[2024-02-19 16:23] LABS: Reflex Troponin-HS? (from REC) Y
[2024-02-19 16:46] LABS: Troponin-I HS 20 pg/mL (3.0-54.0)
--- NOTE | 2024-02-19 17:32 | PCM.HP.STD ---
HPI - General General Date of Service: 02/19/24 Chief Complaint: chest pain HPI Narrative KINGSLEY GURROLA, is a 74 F with history of coronary artery disease and peripheral arterial disease who presents with 2-day history of chest pain as left-sided, radiating to her left arm as well as exertional chest pain. Was rather mild yesterday but increased intensity today. Symptoms nahed when she stops. Patient's [id number] is in the room and states the patient has been short of breath for quite some time. Patient does have a history of a CABG but was not having chest pain at that time just dyspnea. So she presented to the emergency room and her workup here in the hospital was unremarkable, however, patient's story is very concerning for this being cardiac in the hospital service was contacted. FORMERLY [facility], [facility] Medical History Palpitations Right rotator cuff tear Trigger finger of both hands Carpal tunnel syndrome on both sides FHx: cholecystectomy History of left heart catheterization (LHC) (~06/03/21) Essential hypertension Mechanical loosening of prosthetic knee Atherosclerosis of [place] coronary artery of [place] heart without angina pectoris PAD (peripheral artery disease) HLD (hyperlipidemia) Type II diabetes mellitus Home Medications ?Medication ?Instructions ?Recorded ?Last Taken ?Type aspirin 81 mg tablet,delayed 81 mg PO DAILY heart health 12/15/13 06/03/21 History release nitroglycerin 0.4 mg sublingual 0.4 mg sublingual Q5-15M PRN chest 05/26/21 Unknown Rx tablet pain #90 tabs oxycodone-acetaminophen 5 mg-325 1 tab PO Q8H PRN pain 3 days #9 03/29/22 Unknown Rx mg tablet (Percocet) tabs duloxetine 60 mg capsule,delayed 60 mg PO DAILY 08/20/22 Unknown History release glimepiride 4 mg tablet 4 mg PO BID 08/20/22 Unknown History insulin aspar prot-insulin aspart 60 unit subcut QAM 08/20/22 Unknown History 100 unit/mL (70-30) subcutaneous pen (Novolog Mix 70-30FlexPen U-100) insulin aspar prt-insulin aspart 65 unit subcut QPM 08/20/22 Unknown History 100 unit/mL (70-30) subcutaneous soln (Novolog Mix 70-30 U-100 Insuln) rosuvastatin 10 mg tablet See Rx Instructions .Route 04/06/23 Unknown Rx .COMPLEX #90 TABLETS furosemide 40 mg tablet 40 mg PO DAILY #90 TABLETS 08/02/23 Unknown Rx isosorbide mononitrate 60 mg 60 mg PO BID #180 TABLETS 09/22/23 Unknown Rx tablet,extended release 24 hr allopurinol 300 mg tablet 300 mg PO BID 11/05/23 Unknown History cilostazol 100 mg tablet 100 mg PO BID 11/05/23 Unknown History metoprolol tartrate 50 mg tablet 50 mg PO BID This is a dose 12/13/23 Unknown Rx increase #180 tabs Allergy/AdvReac Type Severity Reaction Status Date / Time cefazolin Allergy Shortness Verified 11/05/23 11:31 of breath codeine Allergy Shortness Verified 11/05/23 11:31 of breath morphine Allergy Other Verified 11/05/23 11:31 naloxone (Naloxone) Allergy Shortness Verified 11/05/23 11:31 of breath pentazocine Allergy Shortness Verified 11/05/23 11:31 of breath pentazocine lactate (From Allergy Shortness Verified 11/05/23 11:31 Flakita) of breath atorvastatin AdvReac Severe Severe Verified 11/05/23 11:31 myalgias acetaminophen (From Tylenol) AdvReac Nausea Verified 11/05/23 11:31 Family History Mother Heart disease Surgical History History of coronary artery bypass graft x 3 (~02/27/19) History of prosthetic unicompartmental arthroplasty of left knee Status post left heart catheterization (LHC) (~02/22/19) Social History Smoking Status: Former smoker how long ago did patient quit smokin years ago alcohol intake: current alcohol intake frequency: holidays/special occasions only substance use type: does not use caffeine: Yes Type: coffee Number of servings: 2 ROS ROS Narrative States that she did have some nausea and has been diaphoretic with these episodes. All review of systems were negative except as mentioned above in the history of present illness and the other review of systems. Vital Signs Vital Signs Vital Signs: 02/19/24 14:07 02/19/24 14:17 02/19/24 15:08 Temperature 36.8 C Temperature Source Oral Pulse Rate 106 H 97 Respiratory Rate 18 19 H Blood Pressure 129/54 H Blood Pressure Mean 79 Pulse Ox 95 96 Oxygen Delivery Method Room Air Room Air 02/19/24 16:26 02/19/24 17:02 Temperature Temperature Source Pulse Rate 97 92 Respiratory Rate 18 22 H Blood Pressure 132/62 H 147/71 H Blood Pressure Mean 85 96 Pulse Ox 95 95 Oxygen Delivery Method Weight Weight: 85.729 kg Body Mass Index (BMI) 34.5 Physical Exam Const alert and no apparent distress HEENT normocephalic and head/scalp atraumatic Resp normal respiratory effort, no retractions, no use of accessory muscles and clear to auscultation bilaterally Cardio regular rate, regular rhythm, S1 normal heart sound and S2 normal heart sound GI normal to inspection, nondistended, normoactive bowel sounds, soft to palpation, non-tender and non-distended Extremity normal to inspection and full ROM Neuro Sensorium / Orientation: awake and alert Psych affect normal Results Lab / Micro Data Attestation: I reviewed the patient's lab results. 02/19/24 14:13 02/19/24 14:13 Labs: Laboratory Results - last 24 hr 02/19/24 14:13: WBC 11.3 H, RBC 4.83, Hgb 14.8, Hct 44.1, MCV 91.3, MCH 30.6, MCHC 33.6, RDW Std Deviation 51.3 H, RDW Coeff of Dede 15.4 H, Plt Count 276, MPV 11.0, Immature Gran % (Auto) 0.400, Neut % (Auto) 68.6, Lymph % (Auto) 15.8 L, [place] % (Auto) 6.8, Eos % (Auto) 7.8 H, Baso % (Auto) 0.6, Absolute Neuts (auto) 7.8 H, Absolute Lymphs (auto) 1.79, Nucleated RBC % 0, PT 14.0, INR 1.1, Sodium 139, Potassium 3.8, Chloride 104, Carbon Dioxide 28.0, Anion Gap 7, BUN 19 H, Creatinine 1.60 H, Estim Creat Clear Calc 31.34, Est GFR (MDRD) Af Amer 41 L, Est GFR (MDRD) Non-Af 34 L, BUN/Creatinine Ratio 11.9, Glucose 203 H, Calcium 9.2, Troponin I High Sens 19 02/19/24 16:19: Troponin I High Sens 20 Rhythm Strip Rhythm Strip: Sinus Tach Rate: 111 Ectopy: None EKG Initial EKG: Attestation: I personally reviewed and interpreted this EKG as follows: Prior EKG tracings: available for review EKG Rhythm Intrepretation: Sinus Tachycardia Imaging Radiology Impression Chest X-Ray 02/19/24 14:20 IMPRESSION: No acute cardiopulmonary abnormality. No interval change. Electronically Signed: Cirilo Ybarra MD at 15:14 EDT , Assessment & Plan Assessment/Plan (1) Chest pain: PLAN: Concern for worsening stable angina. Workup here is thus far unremarkable. Plan is to continue with her statin, aspirin. Will check a stress test. Additionally though the patient does not have any risk factors for DVT, will check a D-dimer. If D-dimer is abnormal for her age, check a CT angiogram of the chest. If patient does require having a CTA of the chest, would advise giving her a liter of fluids because she does have chronic kidney disease. PLAN: Plan Chronic conditions Diabetes mellitus type 2: Insulin-dependent. Continue with her 7030 dosing. Add sliding scale. Check an A1c Depression: Continue duloxetine Gout: Not in exacerbation at this time. Continue with allopurinol VTE prophylaxis: Low risk given observation status currently. CODE STATUS: Addressed with the patient. Patient wishes to be full code. Patient advised that a stress test would not be able to be performed until this coming Wednesday. I strongly advised the patient, given her symptoms, to stay until that could be done. Discussed with the patient's [id number] at bedside. Charges/Coding Visit Charges Inpatient E&M: 97189 Init Hosp L2
[2024-02-19 18:09] LABS: D-Dimer Quantitative (DVT/PE) 1.08 FEU/ug/m (0.27-0.49)
[2024-02-19 19:51] LABS: Troponin-I HS 19 pg/mL (3.0-54.0)
--- NOTE | 2024-02-19 20:06 | CT_ITS ---
STUDY: CTA CHEST REASON FOR EXAM: Female, 74 years old. Chest Pain RADIATION DOSAGE (If Supplied By Facility): CTDIvol = ( 13.80 ) mGy, DLP = ( 503.00 ) mGycm TECHNIQUE: The examination was performed with the intravenous administration of 100mL Isovue-370. Post-processing of the angiographic images was performed, with multiplanar reformation and 3D reconstruction. Individualized dose optimization techniques were used for this CT. COMPARISON: None. FINDINGS: Normal enhancement of the main pulmonary artery and right and left pulmonary arteries. Normal enhancement of the bilateral peripheral pulmonary arteries. There is no demonstrated pulmonary embolism. Normal thoracic aorta and visualized great vessels. There is no demonstrated aortic dissection. Normal heart and pericardium. CABG. Normal mediastinum. Normal hilar regions. There are no pulmonary infiltrates. There are no pleural effusions. Multinodular goiter. No acute or aggressive abnormality. No acute findings in the upper abdomen. CT/CTA Chest W/WO Contrast IMPRESSION: Normal CTA chest examination, without a demonstrated pulmonary embolism or arterial dissection. No acute pulmonary findings. Multinodular goiter. If not previously evaluated, consider routine follow-up thyroid ultrasound. Electronically Signed: Stoney Gatica MD at 22:28 EDT ,
--- NOTE | 2024-02-19 20:28 | EKG12_ITS ---
Test Reason : AM EKG Blood Pressure : */* mmHG Vent. Rate : 88 BPM Atrial Rate : 88 BPM P-R Int : 152 ms QRS Dur : 80 ms QT Int : 386 ms P-R-T Axes : 65 -1 90 degrees QTcB Int : 467 ms Normal sinus rhythm Nonspecific T wave abnormality Abnormal ECG Confirmed by Jos Chandra [id number]), editorial project manager SHILPA VALENZUELA ([id number]) on 02/22/2024 9:25:47 AM Referred By: Confirmed By: Jos Chandra
[2024-02-19] MEDS: 0.9% Normal Saline (1000mL) 1,000 ML 150 ML IV (21:05)
[2024-02-19] MEDS: Cilostazol 50 MG Tablet 100 MG PO (21:12)
[2024-02-19] MEDS: Glimepiride 4 MG Tablet PO (21:12)
[2024-02-19] MEDS: Insulin Lispro 100 UNIT/ML INSULN.PEN SC (21:12)
[2024-02-19] MEDS: Metoprolol Tartrate 50 MG Tablet PO (21:13)
[2024-02-19] MEDS: Isosorbide Mononitrate 60 MG Tablet PO (21:13)
[2024-02-19] MEDS: Rosuvastatin Calcium 5 MG Tablet 10 MG PO (21:14)
[2024-02-19 22:12] LABS: Bedside Glucose 309 mg/dL (74-106)
[2024-02-20] VITALS (8 sets, daily range): BP systolic 142–165; BP diastolic 55–79; PULSE 69–98; RESP 18; TEMP 36.2–36.6; O2SAT 90–95
[2024-02-20 06:23] LABS: Anion Gap 6 (5-15); BUN 22 mg/dL (7-18); BUN/Creat Ratio 16.1 RATIO (10-20); Calcium,Total 8.4 mg/dL (8.5-10.1); Chloride 107 mmol/L (98-107); Creatinine, Serum 1.37 mg/dL (0.55-1.02); EST Glomerular Filtration Rate 40 mL/min (>60); Est Glom Filt Rate - Afr Amer 49 mL/min (>60); Estimated Creatinine Clearance 36.71 ml/min; Glucose 358 mg/dL (74-106); Potassium 3.9 mmol/L (3.5-5.1); Sodium Level 136 mmol/L (136-145); Thyroid Stim Hormone (TSH) 0.994 uIU/mL (0.358-3.740)
[2024-02-20 08:06] LABS: Hemoglobin A1c 9.8 % (3.8-5.6)
[2024-02-20 08:13] LABS: Bedside Glucose 391 mg/dL (74-106)
[2024-02-20] MEDS: Insulin Human 75/25 Kwickpen 60 UNIT SC (08:23)
[2024-02-20] MEDS: Insulin Lispro 100 UNIT/ML INSULN.PEN SC ×3 (08:25→17:05)
--- NOTE | 2024-02-20 08:28 | PCM.PN.HOSP ---
Reason for Visit Reason for Visit: Diagnoses Chest pain, unspecified (02/19/24) Subjective Subjective Patient is a 74-year-old lady with significant past cardiac history presenting with chest pain Objective Data Objective Data Vital Signs: Vital Signs Temp Pulse Resp BP Pulse Ox O2 Del Method O2 Flow Rate 97.1 F L 98 18 156/77 H 94 Nasal Cannula 2 02/20/24 03:10 02/20/24 03:10 02/20/24 03:10 02/20/24 03:10 02/20/24 03:10 02/20/24 07:48 02/20/24 07:48 Oxygen Flow Rate (L/min) 2 Oxygen Delivery Method Nasal Cannula Weight: 86.2 kg Body Mass Index (BMI) 34.7 Intake & Output: Intake and Output for Last 24 Hours 02/18/24 02/19/24 02/20/24 23:59 23:59 22:59 Intake Total 982.5 / 982.5 Balance 982.5 / 982.5 Lab / Micro Data 02/19/24 14:13 02/20/24 05:20 Labs: Laboratory Results - last 24 hr 02/19/24 14:13: WBC 11.3 H, RBC 4.83, Hgb 14.8, Hct 44.1, MCV 91.3, MCH 30.6, MCHC 33.6, RDW Std Deviation 51.3 H, RDW Coeff of Dede 15.4 H, Plt Count 276, MPV 11.0, Immature Gran % (Auto) 0.400, Neut % (Auto) 68.6, Lymph % (Auto) 15.8 L, [place] % (Auto) 6.8, Eos % (Auto) 7.8 H, Baso % (Auto) 0.6, Absolute Neuts (auto) 7.8 H, Absolute Lymphs (auto) 1.79, Nucleated RBC % 0, PT 14.0, INR 1.1, D-Dimer Quant (PE/DVT) 1.08 H*, Sodium 139, Potassium 3.8, Chloride 104, Carbon Dioxide 28.0, Anion Gap 7, BUN 19 H, Creatinine 1.60 H, Estim Creat Clear Calc 31.34, Est GFR (MDRD) Af Amer 41 L, Est GFR (MDRD) Non-Af 34 L, BUN/Creatinine Ratio 11.9, Glucose 203 H, Calcium 9.2, Troponin I High Sens 19 02/19/24 16:19: Troponin I High Sens 20 02/19/24 19:10: Troponin I High Sens 19 02/19/24 21:01: POC Glucose 309 H 02/20/24 05:20: Sodium 136, Potassium 3.9, Chloride 107, Carbon Dioxide 24.0, Anion Gap 6, BUN 22 H, Creatinine 1.37 H, Estim Creat Clear Calc 36.71, Est GFR (MDRD) Af Amer 49 L, Est GFR (MDRD) Non-Af 40 L, BUN/Creatinine Ratio 16.1, Glucose 358 H, Hemoglobin A1c 9.8 H, Calcium 8.4 L, TSH 0.994 02/20/24 07:54: POC Glucose 391 H Radiography Diagnostic Testing: Radiology Impression Chest X-Ray 02/19/24 14:20 IMPRESSION: No acute cardiopulmonary abnormality. No interval change. Electronically Signed: Cirilo Ybarra MD at 15:14 EDT , Chest CTA 02/19/24 20:06 IMPRESSION: Normal CTA chest examination, without a demonstrated pulmonary embolism or arterial dissection. No acute pulmonary findings. Multinodular goiter. If not previously evaluated, consider routine follow-up thyroid ultrasound. Electronically Signed: Stoney Gatica MD at 22:28 EDT , Rhythm Strip Rhythm Strip: Sinus Tach Rate: 111 Ectopy: None Physical Exam Narrative GENERAL: cooperative HEENT: Atraumatic; normocephalic EYES; Anicteric, Normal Conjunctiva NECK; supple, normal thyroid, RESPIRATORY: Diminished to auscultation CARDIOVASCULAR: Regular S1 S2, GI: soft, normoactive bowel sounds, : No Renal angle tenderness; EXTREMITIES: No edema, no clubbing, MUSCULOSKELETAL: no muscle wasting NEURO: Awake; no lateralizing signs. SKIN: No Rash PSYCH; Flat affect Assessment & Plan Assessment/Plan (1) Chest pain: PLAN: Plan Patient is a 74-year-old lady with significant past cardiac history presenting with chest pain 1. Chest Pain: Patient placed on a monitored bed [place] had so far been ruled out with serial cardiac enzymes. Nuclear stress test has been ordered for 02/21/2024. Patient has significant cardiac history including previous CABG and is seen by Dr. Anderson. Patient requested a consultation, consult subsequently placed 2. Coronary artery disease ? Status post CABG x3 with GIRALDO to LAD, SVG to OM 2, and SVG to PDA of RCA on 02/27/2019. Patient is on guideline directed medical therapy did continue 3. Diabetes mellitus type II -Patient blood glucose control not optimal glucose level this a.m. 391. Patient's oral hypoglycemics held. Adjusted patient's long acting insulin, also placed Accu-Cheks a.c. and at bedtime and covered with sliding scale insulin 4. Dyslipidemia ?Patient is on statin therapy, continued at home dose 5. Peripheral arterial disease ? With known history of occlusive disease involving the right SFA patient is on statin therapy, cilostazol as well as aspirin 6. Hypertension ? Blood pressure controlled, home medications continued with dose adjustment as needed 7. Class I obesity with BMI of 34.8 ? Complicating care weight loss advised 8. Gout ? Patient is on allopurinol did continue 9. Depression ? Patient is on duloxetine did continue 10. Chronic kidney disease stage III ? Kidney function at baseline 11. DVT prophylaxis ? On enoxaparin Time spent in the patient's overall evaluation,decision-making process, review of diagnostic data, adjustment of management, discussion with other providers, nursing nursing and ancillary staff involved in patient's care documentation, 50 Minutes Charges/Coding Visit Charges Inpatient E&M: 27725 [facility] Hosp L3
[2024-02-20] MEDS: Glimepiride 4 MG Tablet PO (08:29)
[2024-02-20] MEDS: Furosemide 40 MG Tablet PO (08:29)
[2024-02-20] MEDS: Aspirin E.C. 81 MG Tablet PO (08:30)
[2024-02-20] MEDS: Cilostazol 50 MG Tablet 100 MG PO ×2 (08:30→22:58)
[2024-02-20] MEDS: DULoxetine Hcl 60 MG Capsule PO (08:30)
[2024-02-20] MEDS: Allopurinol 300 MG Tablet PO ×2 (08:30→17:06)
[2024-02-20] MEDS: Metoprolol Tartrate 50 MG Tablet PO ×2 (08:30→22:58)
[2024-02-20] MEDS: Isosorbide Mononitrate 60 MG Tablet PO ×2 (08:31→22:58)
--- NOTE | 2024-02-20 10:12 | CON.PCM.CA_ITS ---
Assessment & Plan Assessment/Plan (1) Exertional dyspnea: PLAN: She does have some exertional dyspnea the etiology is unclear I would recommend that we obtain a pharmacologic myocardial perfusion stress test and depending on the findings further recommendations will be made. I would also recommend that we obtain a natruretic peptide level. The addition of an ROSY inhibitor may not be a bad idea especially as she has diabetes mellitus. (2) Hx of CABG: PLAN: She is status post coronary bypass surgery. She had a cardiac catheterization 2 years ago which demonstrated occlusion of one of her grafts. This will be reevaluated with a myocardial perfusion scan. I will have her evaluated to see whether she is a candidate for the precedent D trial (3) HLD (hyperlipidemia): QUALIFIERS: Hyperlipidemia type: unspecified Qualified Code(s): E 78.5 - Hyperlipidemia, unspecified PLAN: She does have a history of hyperlipidemia and she should continue with her aggressive risk factor modification. (4) PAD (peripheral artery disease): PLAN: She does have peripheral vascular disease which does not appear to be worse at this particular time we will continue with the current medical therapy. (5) Essential hypertension: PLAN: Her blood pressure appears to be under fair control we will reevaluate the above and also look for any diastolic dysfunction on her echocardiogram. HPI Consult Data Date of Consult: 02/20/24 HPI Narrative HPI Narrative: KINGSLEY GURROLA, is a 74 F who presents to the emergency room with left shoulder discomfort as well as shortness of breath with activity. She was concerned about this because it had been going on for few days and so presented to the emergency room. In the emergency room she was evaluated EKG was noted to be normal and cardiac enzymes were noted to be normal.. She has a history of underlying CAD status post CABG ([facility]: 02-27-2019: GIRALDO to the LAD, SVG to OM 2, and SVG to RCA/PDA), hyperlipidemia, hypertension, and peripheral arterial occlusive disease (especially lower extremities for which she follows with Dr. Singh of peripheral vascular surgery). She had undergone a cardiac catheterization 2 years ago which demonstrated a patent GIRALDO to the LAD, and occluded saphenous vein graft to the obtuse marginal branch and a patent saphenous vein graft to the right coronary artery. Collateral circulation was also noted. It was felt that cardiology should see during this admission. [facility] Medical History Palpitations Right rotator cuff tear Trigger finger of both hands Carpal tunnel syndrome on both sides FHx: cholecystectomy History of left heart catheterization (LHC) (~06/03/21) Essential hypertension Mechanical loosening of prosthetic knee Atherosclerosis of seminole coronary artery of seminole heart without angina pectoris PAD (peripheral artery disease) HLD (hyperlipidemia) Type II diabetes mellitus Home Medications ?Medication ?Instructions ?Recorded ?Last Taken ?Type aspirin 81 mg tablet,delayed 81 mg PO DAILY heart health 12/15/13 06/03/21 History release nitroglycerin 0.4 mg sublingual 0.4 mg sublingual Q5-15M PRN chest 05/26/21 Unknown Rx tablet pain #90 tabs duloxetine 60 mg capsule,delayed 60 mg PO DAILY 08/20/22 Unknown History release glimepiride 4 mg tablet 4 mg PO BID 08/20/22 Unknown History insulin aspar prot-insulin aspart 60 unit subcut QAM 08/20/22 Unknown History 100 unit/mL (70-30) subcutaneous pen (Novolog Mix 70-30FlexPen U-100) insulin aspar prt-insulin aspart 65 unit subcut QPM 08/20/22 Unknown History 100 unit/mL (70-30) subcutaneous soln (Novolog Mix 70-30 U-100 Insuln) rosuvastatin 10 mg tablet See Rx Instructions .Route 04/06/23 Unknown Rx .COMPLEX #90 TABLETS furosemide 40 mg tablet 40 mg PO DAILY #90 TABLETS 08/02/23 Unknown Rx isosorbide mononitrate 60 mg 60 mg PO BID #180 TABLETS 09/22/23 Unknown Rx tablet,extended release 24 hr allopurinol 300 mg tablet 300 mg PO BID 11/05/23 Unknown History cilostazol 100 mg tablet 100 mg PO BID 11/05/23 Unknown History metoprolol tartrate 50 mg tablet 50 mg PO BID This is a dose 12/13/23 Unknown Rx increase #180 tabs oxycodone-acetaminophen 5 mg-325 1 tab PO TID PRN PRN pain 02/19/24 02/03/24 History mg tablet Allergy/AdvReac Type Severity Reaction Status Date / Time cefazolin Allergy Shortness Verified 11/05/23 11:31 of breath codeine Allergy Shortness Verified 11/05/23 11:31 of breath morphine Allergy Other Verified 11/05/23 11:31 naloxone (Naloxone) Allergy Shortness Verified 11/05/23 11:31 of breath pentazocine Allergy Shortness Verified 11/05/23 11:31 of breath pentazocine lactate (From Allergy Shortness Verified 11/05/23 11:31 Flakita) of breath atorvastatin AdvReac Severe Severe Verified 11/05/23 11:31 myalgias acetaminophen (From Tylenol) AdvReac Nausea Verified 11/05/23 11:31 Family History Mother Heart disease Surgical History History of coronary artery bypass graft x 3 (~02/27/19) History of prosthetic unicompartmental arthroplasty of left knee Status post left heart catheterization (LHC) (~02/22/19) Social History Smoking Status: Light Smoker (<10/day) how long ago did patient quit smokin years ago alcohol intake: current alcohol intake frequency: holidays/special occasions only substance use type: does not use caffeine: Yes Type: coffee Number of servings: 2 ROS Constitutional Constitutional: Denies fever(s) or weight loss Eyes Eyes: Reports systems reviewed and no addt'l complaints, except as documented ENT HEENT: Reports systems reviewed and no addt'l complaints, except as documented Cardiovascular Cardiovascular: Denies chest pain at rest, chest pain with activity, dyspnea at rest, dyspnea on exertion, edema, palpitations or paroxysmal nocturnal dyspnea Respiratory/Chest Respiratory/Chest: Denies dyspnea on exertion, productive cough, shortness of breath at rest or shortness of breath with exertion Gastrointestinal Gastrointestinal: Denies change in bowel habits, nausea, vomiting or weight changes Genitourinary Genitourinary: Denies difficulty urinating Musculoskeletal Musculoskeletal: Denies joint stiffness or muscle weakness Integumentary Integumentary: Denies lesions Neurologic Neurologic: Denies dizziness or syncope Psychiatric Psychiatric: Denies anxiety Endocrine Endocrinology: Denies excessive sweating or fatigue Hematologic/Lymphatic Hematologic/Lymphatic: Denies anemia Allergic/Immunologic Allergic/Immunologic: Denies seasonal rhinorrhea Physical Exam Const alert, oriented x3 and no apparent distress General Appearance: cooperative HEENT hearing grossly normal bilaterally Head and Scalp: atraumatic Eyes EOMs intact bilaterally Neck General: normal visual inspection Chest inspection of chest normal and palpation of chest normal Resp normal respiratory effort Auscultation: clear to auscultation bilaterally Cardio regular rate, regular rhythm, S1 normal heart sound and S2 normal heart sound Jugular Venous Distention: JVD GI normal to inspection, nondistended, normoactive bowel sounds Extremity normal capillary refill and no pedal edema Peripheral Pulses: Yes pulses 2+ throughout and femoral pulses present Skin no rashes or lesions noted Neuro oriented x3 and CN's II-XII intact bilaterally Psych Appearance: grossly normal and appropriate Risk Stratification Risk Stratification Applicable: Yes Age >/= 65: Yes >/= 3 CAD Risk Factors (HTN, HLD, DM, family hx of CAD, or current smoker): Yes Aspirin Use in the Past 7 Days: Yes Severe Angina (>/= episodes in 24 hours): No EKG ST Changes >/= 0.5mm: No Positive Cardiac Marker: No LINK Risk Stratification Score: 3 LINK % Risk: 13% Risk Objective Data Vital Signs: Vital Signs Temp Pulse Resp BP Pulse Ox O2 Del Method O2 Flow Rate 97.9 F 74 18 142/55 H 94 Nasal Cannula 2 02/20/24 09:10 02/20/24 09:10 02/20/24 09:10 02/20/24 09:10 02/20/24 09:10 02/20/24 09:10 02/20/24 09:10 Oxygen Flow Rate (L/min) 2 Oxygen Delivery Method Nasal Cannula Weight: 190 lb 0.615 oz Body Mass Index (BMI) 34.7 Intake & Output: Intake and Output for Last 24 Hours 02/18/24 02/19/24 02/20/24 23:59 23:59 22:59 Intake Total 982.5 / 982.5 Balance 982.5 / 982.5 Lab / Micro Data 02/19/24 14:13 02/20/24 05:20 Labs: Laboratory Results - last 24 hr 02/19/24 14:13: WBC 11.3 H, RBC 4.83, Hgb 14.8, Hct 44.1, MCV 91.3, MCH 30.6, MCHC 33.6, RDW Std Deviation 51.3 H, RDW Coeff of Dede 15.4 H, Plt Count 276, MPV 11.0, Immature Gran % (Auto) 0.400, Neut % (Auto) 68.6, Lymph % (Auto) 15.8 L, [place] % (Auto) 6.8, Eos % (Auto) 7.8 H, Baso % (Auto) 0.6, Absolute Neuts (auto) 7.8 H, Absolute Lymphs (auto) 1.79, Nucleated RBC % 0, PT 14.0, INR 1.1, D-Dimer Quant (PE/DVT) 1.08 H*, Sodium 139, Potassium 3.8, Chloride 104, Carbon Dioxide 28.0, Anion Gap 7, BUN 19 H, Creatinine 1.60 H, Estim Creat Clear Calc 31.34, E st GFR (MDRD) Af Amer 41 L, Est GFR (MDRD) Non-Af 34 L, BUN/Creatinine Ratio 11.9, Glucose 203 H, Calcium 9.2, Troponin I High Sens 19 02/19/24 16:19: Troponin I High Sens 20 02/19/24 19:10: Troponin I High Sens 19 02/19/24 21:01: POC Glucose 309 H 02/20/24 05:20: Sodium 136, Potassium 3.9, Chloride 107, Carbon Dioxide 24.0, Anion Gap 6, BUN 22 H, Creatinine 1.37 H, Estim Creat Clear Calc 36.71, Est GFR (MDRD) Af Amer 49 L, Est GFR (MDRD) Non-Af 40 L, BUN/Creatinine Ratio 16.1, G lucose 358 H, Hemoglobin A1c 9.8 H, Calcium 8.4 L, TSH 0.994 02/20/24 07:54: POC Glucose 391 H Rhythm Strip Rhythm Strip: Sinus Tach Rate: 111 Ectopy: None Cardiology Labs/Tests 02/19/24 14:13: WBC 11.3 H, RBC 4.83, Hgb 14.8, Hct 44.1, MCV 91.3, MCH 30.6, MCHC 33.6, Plt Count 276, MPV 11.0, Immature Gran % (Auto) 0.400, Neut % (Auto) 68.6, Lymph % (Auto) 15.[address] L, [place] % (Auto) 6.8, Eos % (Auto) 7.8 H, Baso % (Auto) 0.6, Absolute Neuts (auto) 7.8 H, Nucleated RBC % 0, PT 14.0, INR 1.1, D- Dimer Quant (PE/DVT) 1.08 H*, Sodium 139, Potassium 3.8, Chloride 104, Carbon Dioxide 28.0, Anion Gap 7, BUN 19 H, Creatinine 1.60 H, Est GFR (MDRD) Af Amer 41 L, Est GFR (MDRD) Non-Af 34 L, BUN/Creatinine Ratio 11.9, Glucose 203 H, Calcium 9.2 02/20/24 05:20: Sodium 136, Potassium 3.9, Chloride 107, Carbon Dioxide 24.0, Anion Gap 6, BUN 22 H, Creatinine 1.37 H, Est GFR (MDRD) Af Amer 49 L, Est GFR (MDRD) Non-Af 40 L, BUN/Creatinine Ratio 16.1, Glucose 358 H, Hemoglobin A1c 9.8 H, Calcium 8.4 L Rhythm: EKG: ECHO: Stress Test: Cardiac Cath: PCI: CT Surgery: Holter monitor: EPS: PPM: CXR: Chest CT Scan: Radiography Diagnostic Testing: Radiology Impression Chest X-Ray 02/19/24 14:20 IMPRESSION: No acute cardiopulmonary abnormality. No interval change. Electronically Signed: Cirilo Ybarra MD at 15:14 EDT , Chest CTA 02/19/24 20:06 IMPRESSION: Normal CTA chest examination, without a demonstrated pulmonary embolism or arterial dissection. No acute pulmonary findings. Multinodular goiter. If not previously evaluated, consider routine follow-up thyroid ultrasound. Electronically Signed: Stoney Gatica MD at 22:28 EDT ,
[2024-02-20] MEDS: Enoxaparin 40 MG/0.4 ML Syringe SC (10:21)
[2024-02-20 11:57] LABS: Bedside Glucose 366 mg/dL (74-106)
--- NOTE | 2024-02-20 12:39 | ECHOD_ITS ---
Reason For Study: DYSPNEA Procedure This was a 2D Doppler, Color Flow transthoracic echocardiogram. Exam performed in department. Left Ventricle Normal LV size. Severe concentric left ventricular hypertrophy. The left ventricular ejection fraction is 60 %. Stage 1 diastolic dysfunction. No regional wall motion abnormalities noted. Right Ventricle Normal RV size. Normal systolic function. Atria Normal left atrium. Normal right atrium. Mitral Valve Normal mitral valve. Tricuspid Valve Normal tricuspid valve. Aortic Valve Trisinus/trileaflet aortic valve. Pulmonic Valve Normal pulmonic valve. Great Vessels Normal aortic root. The pulmonary artery is normal size. Inferior vena cava collapse with respiration. Pericardium/Pleural No pericardial effusion. MMode/2D Measurements & Calculations LVIDd: 3.9 cm IVSd: 1.8 cm Ao root diam: 3.2 cm LVIDs: 2.6 cm LVPWd: 1.5 cm FS: 33.1 % LAV(MOD-bp): 28.5 ml LVAd ap4: 19.7 cm2 SV(MOD-sp4): 26.7 ml LAV(MOD-bp) Indexed: 15.3 ml/m2 LVLd ap4: 7.0 cm SI(MOD-sp4): 14.3 ml/m2 LAV(MOD-sp2): 17.0 ml EDV(MOD-sp4): 48.6 ml LAV(MOD-sp4): 30.7 ml EDV(sp4-el): 47.2 ml LVAs ap4: 11.7 cm2 LVLs ap4: 6.0 cm ESV(MOD-sp4): 21.8 ml ESV(sp4-el): 19.5 ml EF(MOD-sp4): 55.1 % EF(sp4-el): 58.7 % SV(sp4-el): 27.7 ml LA A4 area: 13.3 cm2 LA dimension(2D): 3.5 cm RA A4 area: 8.2 cm2 Time Measurements MV dec time: 0.17 sec Doppler Measurements & Calculations MV E max wild: 63.8 cm/sec Lat Peak E' Wild: 7.2 cm/sec Med Peak E' Wild: 5.0 cm/sec MV A max wild: 90.3 cm/sec E/E' lat: 8.9 E/E' med: 12.7 MV E/A: 0.71 MV V2 max: 88.5 cm/sec Ao V2 max: 137.7 cm/sec MV max P.1 mmHg MV dec slope: 370.7 cm/sec2 Ao max P.6 mmHg MV V2 mean: 55.5 cm/sec Ao V2 mean: 90.3 cm/sec MV mean P.4 mmHg Ao mean P.8 mmHg MV V2 VTI: 20.2 cm Ao V2 VTI: 22.4 cm AV (velocity ratio): 0.84 LV V1 max: 105.6 cm/sec PA V2 max: 128.2 cm/sec LV V1 max P.5 mmHg PA V2 mean: 82.6 cm/sec LV V1 mean P.1 mmHg LV V1 mean: 66.1 cm/sec LV V1 VTI: 18.9 cm ECHO/Echo Complete Interpretation Summary Normal LV size. Severe concentric left ventricular hypertrophy. The left ventricular ejection fraction is 60 %. Stage 1 diastolic dysfunction. Ordering Physician: Jorge Anderson Referring Physician: SHELLEY GALDAMEZ Performed By: Crystal Kaplan RCS
[2024-02-20 13:09] LABS: BNP,B-Type NATRIURETIC PEPTIDE 20.3 pg/mL (0-100)
[2024-02-20 16:52] LABS: Bedside Glucose 178 mg/dL (74-106)
[2024-02-20] MEDS: Insulin Human 75/25 Kwickpen 80 UNIT SC (17:02)
[2024-02-20] MEDS: Rosuvastatin Calcium 5 MG Tablet 10 MG PO (22:58)
[2024-02-20 23:22] LABS: Bedside Glucose 129 mg/dL (74-106)
[2024-02-21 04:40] VITALS: BP 172/78; PULSE 91; RESP 18; TEMP 36.7; O2SAT 96
[2024-02-21 05:22] VITALS: BP 172/78; PULSE 91
[2024-02-21] MEDS: hydrALAZINE 20 MG/ML Vial 10 MG IV (05:22)
--- NOTE | 2024-02-21 05:55 | EKG12_ITS ---
Test Reason : CP Blood Pressure : */* mmHG Vent. Rate : 105 BPM Atrial Rate : 105 BPM P-R Int : 150 ms QRS Dur : 76 ms QT Int : 398 ms P-R-T Axes : 41 9 93 degrees QTcB Int : 526 ms Sinus tachycardia with occasional Premature ventricular complexes Nonspecific T wave abnormality Abnormal ECG When compared with ECG of 19-Feb-2024 14:12, MANUAL COMPARISON REQUIRED DATA IS UNCONFIRMED Confirmed by Jos Chandra ([id number]), manuscript editor SHILPA VALENZUELA ([id number]) on 02/22/2024 9:27:09 AM Referred By: Confirmed By: Jos Chandra
[2024-02-21 06:07] LABS: Absolute Lymphocyte Count 1.89 X10^3/uL (0.83-4.51); Absolute Neutrophil Count 5.7 X10^3/uL (2.0-7.7); Basophil# 0.07 X10^3/uL; Basophil% 0.7 % (0-1); Eosinophil# 1.45 X10^3/uL; Eosinophils% 14.5 % (0-5); Hematocrit 42.2 % (37-47); Hemoglobin 13.8 g/dL (12.0-15.0); Lymphocyte # 1.89 X10^3/ul (0.83-4.51); Lymphocyte % 18.9 % (19-41); Mean Corp Hgb Conc 32.7 g/dL (32-36); Mean Corpuscular Hgb 30.1 pg (27.0-32.0); Mean Corpuscular Volume 91.9 fL (81-99); Mean Platelet Vol. 11.1 fl (6.2-12.0); Monocyte# 0.84 X10^3/uL; Monocyte% 8.4 % (0-10); NRBC Flagged by Analyzer 0 % (0-5); Neutrophil # 5.71 X10^3/uL (2.7-7.7); Neutrophil % 57.2 % (47-70); Platelet Count 260 K/mm3 (150-450); RBC Distribution Width CV 15.1 % (11.6-14.6); RBC Distribution Width SD 50.9 fl (35.1-43.9); Red Blood Count 4.59 M/mm3 (4.2-5.4)
[2024-02-21 06:15] VITALS: BP 144/71; PULSE 87; RESP 18; TEMP 36.6; O2SAT 95
[2024-02-21] MEDS: Aspirin E.C. 81 MG Tablet PO (06:22)
[2024-02-21] MEDS: Losartan Potassium 25 MG Tablet PO (06:23)
[2024-02-21 06:42] LABS: Bedside Glucose 180 mg/dL (74-106)
[2024-02-21 06:48] LABS: Anion Gap 7 (5-15); BUN 21 mg/dL (7-18); BUN/Creat Ratio 17.9 RATIO (10-20); Calcium,Total 8.9 mg/dL (8.5-10.1); Chloride 107 mmol/L (98-107); Creatinine, Serum 1.17 mg/dL (0.55-1.02); EST Glomerular Filtration Rate 48 mL/min (>60); Est Glom Filt Rate - Afr Amer 58 mL/min (>60); Estimated Creatinine Clearance 42.98 ml/min; Glucose 131 mg/dL (74-106); Phosphorus 4.4 mg/dL (2.5-4.9); Potassium 3.6 mmol/L (3.5-5.1); Sodium Level 138 mmol/L (136-145)
--- NOTE | 2024-02-21 07:34 | PCM.PN.HOSP ---
Reason for Visit Reason for Visit: Diagnoses Hyperlipidemia, unspecified (02/19/24) Essential (primary) hypertension (02/19/24) Peripheral vascular disease, unspecified (02/19/24) Other forms of dyspnea (02/19/24) Chest pain, unspecified (02/19/24) Presence of aortocoronary bypass graft (02/19/24) Subjective Subjective Patient cardiac enzymes so far negative to date. Scheduled to undergo nuclear stress test this a.m. Objective Data Objective Data Vital Signs: Vital Signs Temp Pulse Resp BP Pulse Ox O2 Del Method O2 Flow Rate 97.8 F 87 18 144/71 H 95 Room Air 2 02/21/24 06:15 02/21/24 06:15 02/21/24 06:15 02/21/24 06:15 02/21/24 06:15 02/21/24 06:15 02/20/24 15:11 Oxygen Flow Rate (L/min) 2 Oxygen Delivery Method Room Air Weight: 86.2 kg Body Mass Index (BMI) 34.7 Intake & Output: Intake and Output for Last 24 Hours 02/19/24 02/20/24 02/21/24 23:59 22:59 23:59 Intake Total 1702.5 / 1702.5 Balance 1702.5 / 1702.5 Lab / Micro Data 02/21/24 05:20 02/21/24 05:20 Labs: Laboratory Results - last 24 hr 02/20/24 05:20: Hemoglobin A1c 9.8 H, B-Natriuretic Peptide 20.3 02/20/24 07:54: POC Glucose 391 H 02/20/24 11:25: POC Glucose 366 H 02/20/24 16:31: POC Glucose 178 H 02/20/24 22:54: POC Glucose 129 H 02/21/24 05:20: WBC 10.0, RBC 4.59, Hgb 13.8, Hct 42.2, MCV 91.9, MCH 30.1, MCHC 32.7, RDW Std Deviation 50.9 H, RDW Coeff of Dede 15.1 H, Plt Count 260, MPV 11.1, Immature Gran % (Auto) 0.300, Neut % (Auto) 57.2, Lymph % (Auto) 18.9 L, Esmeralda % (Auto) 8.4, Eos % (Auto) 14.5 H, Baso % (Auto) 0.7, Absolute Neuts (auto) 5.7, Absolute Lymphs (auto) 1.89, Nucleated RBC % 0, Sodium 138, Potassium 3.6, Chloride 107, Carbon Dioxide 25.0, Anion Gap 7, BUN 21 H, Creatinine 1.17 H, Estim Creat Clear Calc 42.98, Est GFR (MDRD) Af Amer 58 L, Est GFR (MDRD) Non-Af 48 L, BUN/Creatinine Ratio 17.9, Glucose 131 H, Calcium 8.9, Phosphorus 4.4, Magnesium 2.0 02/21/24 06:20: POC Glucose 180 H Rhythm Strip Rhythm Strip: Sinus Tach Rate: 111 Ectopy: None Physical Exam Narrative GENERAL: cooperative HEENT: Atraumatic; normocephalic EYES; Anicteric, Normal Conjunctiva NECK; supple, normal thyroid, RESPIRATORY: Diminished to auscultation CARDIOVASCULAR: Regular S1 S2, GI: soft, normoactive bowel sounds, : No Renal angle tenderness; EXTREMITIES: No edema, no clubbing, MUSCULOSKELETAL: no muscle wasting NEURO: Awake; no lateralizing signs. SKIN: No Rash PSYCH; Flat affect Assessment & Plan Assessment/Plan (1) Chest pain: PLAN: Plan Patient is a 74-year-old lady with significant past cardiac history presenting with chest pain 1. Chest Pain: Patient placed on a monitored bed PR had so far been ruled out with serial cardiac enzymes. Nuclear stress test has been ordered for 02/21/2024. Patient has significant cardiac history including previous CABG and is seen by Dr. Anderson. Patient requested a consultation, consult subsequently placed ? 02/21/2024; scheduled to undergo nuclear stress test 2. Coronary artery disease ? Status post CABG x3 with GIRALDO to LAD, SVG to OM 2, and SVG to PDA of RCA on 02/27/2019. Patient is on guideline directed medical therapy did continue 3. Diabetes mellitus type II -Patient blood glucose control not optimal glucose level this a.m. 391. Patient's oral hypoglycemics held. Adjusted patient's long acting insulin, also placed Accu-Cheks a.c. and at bedtime and covered with sliding scale insulin 4. Dyslipidemia ?Patient is on statin therapy, continued at home dose 5. Peripheral arterial disease ? With known history of occlusive disease involving the right SFA patient is on statin therapy, cilostazol as well as aspirin 6. Hypertension ? Blood pressure controlled, home medications continued with dose adjustment as needed 7. Class I obesity with BMI of 34.8 ? Complicating care weight loss advised 8. Gout ? Patient is on allopurinol did continue 9. Depression ? Patient is on duloxetine did continue 10. Chronic kidney disease stage III ? Kidney function at baseline 11. DVT prophylaxis ? On enoxaparin Time spent in the patient's overall evaluation,decision-making process, review of diagnostic data, adjustment of management, discussion with other providers, nursing nursing and ancillary staff involved in patient's care documentation, 36 minutes
--- NOTE | 2024-02-21 10:42 | STRESSREP ---
Stress Test Report Pharmacologic myocardial perfusion stress test. 74-year-old lady with a history of chest pain and previous coronary bypass surgery. Resting EKG demonstrates sinus rhythm with a rate of 88 bpm. Resting blood pressure is 122/84 mmHg. 0.4 mg of regadenoson was infused per usual protocol followed by rapid intravenous saline flush injection. Continuous EKG monitoring was performed. The maximum heart rate was 104 bpm which was 71% of max impacted heart rate the maximum workload was 1 metabolic equivalent. At rest there were no ST or T wave changes noted to suggest ischemia and at peak infusion nonspecific ST changes were noted which did not meet the criteria for ischemia. No clinical angina is noted. The final blood pressure was 124/80 mmHg. Myocardial perfusion protocol. 8.0 mCi of technetium 99m sestamibi was injected at rest. 0.4 mg of regadenoson was infused per usual protocol. At peak infusion 26.1 mCi of technetium 99m sestamibi was injected stress images were obtained stress and rest images were reconstructed and compared in the short axis vertical long and horizontal long axis. Gated images were also obtained. Perfusion SPECT analysis: Review of the stress images demonstrate normal uptake of tracer noted in all areas of the myocardium. The resting images similar demonstrated normal uptake of tracer noted in all areas of the myocardium. No areas of reversibility are noted to suggest ischemia and no previous infarct is noted. Gated SPECT analysis: The gated ejection fraction is 68%. Conclusion: Normal pharmacologic myocardial perfusion stress test. Preserved ejection fraction.
[2024-02-21 10:58] VITALS: BP 134/73; PULSE 93; RESP 18; TEMP 36.6; O2SAT 95
[2024-02-21] MEDS: Cilostazol 50 MG Tablet 100 MG PO (11:01)
[2024-02-21] MEDS: Isosorbide Mononitrate 60 MG Tablet PO (11:01)
[2024-02-21] MEDS: DULoxetine Hcl 60 MG Capsule PO (11:01)
[2024-02-21 11:02] VITALS: BP 134/73; PULSE 93
[2024-02-21] MEDS: Metoprolol Tartrate 50 MG Tablet PO (11:02)
[2024-02-21] MEDS: Furosemide 40 MG Tablet PO (11:02)
[2024-02-21] MEDS: Insulin Lispro 100 UNIT/ML INSULN.PEN SC (11:11)
--- NOTE | 2024-02-21 11:31 | PN.CARD_ITS ---
Subjective Subjective Patient seen and evaluated. Appears to be doing well this morning. Objective Data Vital Signs: Vital Signs Temp Pulse Resp BP Pulse Ox O2 Del Method O2 Flow Rate 97.9 F 93 18 134/73 H 95 Room Air 2 02/21/24 10:58 02/21/24 11:02 02/21/24 10:58 02/21/24 11:02 02/21/24 10:58 02/21/24 10:58 02/20/24 15:11 Oxygen Flow Rate (L/min) 2 Oxygen Delivery Method Room Air Weight: 190 lb 0.615 oz Body Mass Index (BMI) 34.7 Intake & Output: Intake and Output for Last 24 Hours 02/19/24 02/20/24 02/21/24 23:59 22:59 23:59 Intake Total 1702.5 / 1702.5 Balance 1702.5 / 1702.5 Lab / Micro Data 02/21/24 05:20 02/21/24 05:20 Labs: Laboratory Results - last 24 hr 02/20/24 05:20: B-Natriuretic Peptide 20.3 02/20/24 11:25: POC Glucose 366 H 02/20/24 16:31: POC Glucose 178 H 02/20/24 22:54: POC Glucose 129 H 02/21/24 05:20: WBC 10.0, RBC 4.59, Hgb 13.8, Hct 42.2, MCV 91.9, MCH 30.1, MCHC 32.7, RDW Std Deviation 50.9 H, RDW Coeff of Dede 15.1 H, Plt Count 260, MPV 11.1, Immature Gran % (Auto) 0.300, Neut % (Auto) 57.2, Lymph % (Auto) 18.9 L, [place] % (Auto) 8.4, Eos % (Auto) 14.5 H, Baso % (Auto) 0.7, Absolute Neuts (auto) 5.7, Absolute Lymphs (auto) 1.89, Nucleated RBC % 0, Sodium 138, Potassium 3.6, Chloride 107, Carbon Dioxide 25.0, Anion Gap 7, BUN 21 H, Creatinine 1.17 H, Estim Creat Clear Calc 42.98, Est GFR (MDRD) Af Amer 58 L, Est GFR (MDRD) Non-Af 48 L, BUN/Creatinine Ratio 17.9, Glucose 131 H, Calcium 8.9, Phosphorus 4.4, Magnesium 2.0 02/21/24 06:20: POC Glucose 180 H Rhythm Strip Rhythm Strip: Sinus Tach Rate: 111 Ectopy: None Cardiology Labs/Tests 02/20/24 05:20: B-Natriuretic Peptide 20.3 02/21/24 05:20: WBC 10.0, RBC 4.59, Hgb 13.8, Hct 42.2, MCV 91.9, MCH 30.1, MCHC 32.7, Plt Count 260, MPV 11.1, Immature Gran % (Auto) 0.300, Neut % (Auto) 57.2, Lymph % (Auto) 18.9 L, [place] % (Auto) 8.4, Eos % (Auto) 14.5 H, Baso % (Auto) 0.7, Absolute Neuts (auto) 5.7, Nucleated RBC % 0, Sodium 138, Potassium 3.6, Chloride 107, Carbon Dioxide 25.0, Anion Gap 7, BUN 21 H, Creatinine 1.17 H, Est GFR (MDRD) Af Amer 58 L, Est GFR (MDRD) Non-Af 48 L, BUN/Creatinine Ratio 17.9, Glucose 131 H, Calcium 8.9, Phosphorus 4.4, Magnesium 2.0 Rhythm: EKG: ECHO: Stress Test: Cardiac Cath: PCI: CT Surgery: Holter monitor: EPS: PPM: CXR: Chest CT Scan: Physical Exam Const alert, oriented x3 and no apparent distress General Appearance: cooperative HEENT hearing grossly normal bilaterally Head and Scalp: atraumatic Eyes EOMs intact bilaterally Neck General: normal visual inspection Chest inspection of chest normal and palpation of chest normal Resp normal respiratory effort Auscultation: clear to auscultation bilaterally Cardio regular rate, regular rhythm, S1 normal heart sound and S2 normal heart sound Jugular Venous Distention: JVD GI normal to inspection, nondistended, normoactive bowel sounds Extremity normal capillary refill and no pedal edema Peripheral Pulses: Yes pulses 2+ throughout and femoral pulses present Skin no rashes or lesions noted Neuro oriented x3 and CN's II-XII intact bilaterally Psych Appearance: grossly normal and appropriate Assessment & Plan Assessment/Plan (1) Exertional dyspnea: PLAN: She does have some exertional dyspnea. I suspect the above is on the basis of diastolic dysfunction. Echocardiogram performed today demonstrates preserved ejection fraction with severe concentric left ventricular hypertrophy present. * Myocardial perfusion stress test demonstrated no evidence of ischemia * Will recommend addition of ROSY inhibitor * Outpatient cardiovascular follow-up (2) Hx of CABG: PLAN: She is status post coronary bypass surgery. She had a cardiac catheterization 2 years ago which demonstrated occlusion of one of her grafts. This was reevaluated with a myocardial perfusion scan and demonstrates no evidence of ischemia. I will have her evaluated to see whether she is a candidate for the precedent D trial (3) HLD (hyperlipidemia): QUALIFIERS: Hyperlipidemia type: unspecified Qualified Code(s): E 78.5 - Hyperlipidemia, unspecified PLAN: She does have a history of hyperlipidemia and she should continue with her aggressive risk factor modification. (4) PAD (peripheral artery disease): PLAN: She does have peripheral vascular disease which does not appear to be worse at this particular time we will continue with the current medical therapy. (5) Essential hypertension: PLAN: Her blood pressure appears to be under fair control we will reevaluate the above and also look for any diastolic dysfunction on her echocardiogram.
[2024-02-21 11:34] LABS: Bedside Glucose 204 mg/dL (74-106)
--- NOTE | 2024-02-21 11:53 | DS.PCM_ITS ---
Providers Date of Admission: 02/19/24 Date of Discharge: 02/21/24 Primary Care Physician: Dr. Marielos Galdamez, DO Consultations 02/20/24 08:50 Consult: Cardiology Routine Consulting Provider: Jorge Anderson Reason for Consult: Chest Pain EMERGENT Consult: No MD Notified: Yes Date Notified: 02/20/24 Time Notified: 08:50 Method of Notification: Text Reason For Visit: CHEST PAIN Diagnosis Discharge Diagnosis (1) Chest pain: Status: Acute Code(s): R07.9 - Chest pain, unspecified Plan Patient is a 74-year-old lady with significant past cardiac history presenting with chest pain 1. Chest Pain: Patient placed on a monitored bed [place] had so far been ruled out with serial cardiac enzymes. Nuclear stress test has been ordered for 02/21/2024. Patient has significant cardiac history including previous CABG and is seen by Dr. Anderson. Patient requested a consultation, consult subsequently placed ? 02/21/2024; scheduled to undergo nuclear stress test ? Patient nuclear stress test was negative for stress-induced ischemia discharged with plans for patient to follow-up with cardiology as outpatient 2. Coronary artery disease ? Status post CABG x3 with GIRALDO to LAD, SVG to OM 2, and SVG to PDA of RCA on 02/27/2019. Patient is on guideline directed medical therapy did continue 3. Diabetes mellitus type II -Patient blood glucose control not optimal glucose level this a.m. 391. Patient's oral hypoglycemics held. Adjusted patient's long acting insulin, also placed Accu-Cheks a.c. and at bedtime and covered with sliding scale insulin 4. Dyslipidemia ?Patient is on statin therapy, continued at home dose 5. Peripheral arterial disease ? With known history of occlusive disease involving the right SFA patient is on statin therapy, cilostazol as well as aspirin 6. Hypertension ? Blood pressure controlled, home medications continued with dose adjustment as needed ? Losartan added to patient medication regimen 7. Class I obesity with BMI of 34.8 ? Complicating care weight loss advised 8. Gout ? Patient is on allopurinol did continue 9. Depression ? Patient is on duloxetine did continue 10. Chronic kidney disease stage III ? Kidney function at baseline 11. DVT prophylaxis ? On enoxaparin Time spent in the patient's overall evaluation,decision-making process, review of diagnostic data, adjustment of management, discussion with other providers, nursing nursing and ancillary staff involved in patient's care documentation, 36 minutes Medications at Discharge Home Medications aspirin 81 mg tablet,delayed release 81 mg PO DAILY heart health 12/15/13 nitroglycerin 0.4 mg sublingual tablet 0.4 mg sublingual Q5-15M PRN chest pain #90 tabs 05/26/21 duloxetine 60 mg capsule,delayed release 60 mg PO DAILY 08/20/22 insulin aspar prot-insulin aspart 100 unit/mL (70-30) subcutaneous pen (Novolog Mix 70-30FlexPen U-100) 60 unit subcut QAM 08/20/22 insulin aspar prt-insulin aspart 100 unit/mL (70-30) subcutaneous soln (Novolog Mix 70-30 U-100 Insuln) 65 unit subcut QPM 08/20/22 rosuvastatin 10 mg tablet See Rx Instructions .Route .COMPLEX #90 TABLETS 04/06/23 furosemide 40 mg tablet 40 mg PO DAILY #90 TABLETS 08/02/23 isosorbide mononitrate 60 mg tablet,extended release 24 hr 60 mg PO BID #180 TABLETS 09/22/23 allopurinol 300 mg tablet 300 mg PO BID 11/05/23 cilostazol 100 mg tablet 100 mg PO BID 11/05/23 metoprolol tartrate 50 mg tablet 50 mg PO BID This is a dose increase #180 tabs 12/13/23 oxycodone-acetaminophen 5 mg-325 mg tablet 1 tab PO TID PRN PRN pain 02/19/24 losartan 25 mg tablet 25 mg PO DAILY #90 tabs 02/21/24 Physical Exam Narrative GENERAL: cooperative HEENT: Atraumatic; normocephalic EYES; Anicteric, Normal Conjunctiva NECK; supple, normal thyroid, RESPIRATORY: Diminished to auscultation CARDIOVASCULAR: Regular S1 S2, GI: soft, normoactive bowel sounds, : No Renal angle tenderness; EXTREMITIES: No edema, no clubbing, MUSCULOSKELETAL: no muscle wasting NEURO: Awake; no lateralizing signs. SKIN: No Rash PSYCH; Flat affect Weight / BMI Weight Weight: 86.2 kg Body Mass Index (BMI) 34.7 ABG / Lab / Microbiology Data 02/21/24 05:20 02/21/24 05:20 Laboratory: Laboratory Results - last 24 hr 02/20/24 05:20: B-Natriuretic Peptide 20.3 02/20/24 11:25: POC Glucose 366 H 02/20/24 16:31: POC Glucose 178 H 02/20/24 22:54: POC Glucose 129 H 02/21/24 05:20: WBC 10.0, RBC 4.59, Hgb 13.8, Hct 42.2, MCV 91.9, MCH 30.1, MCHC 32.7, RDW Std Deviation 50.9 H, RDW Coeff of Dede 15.1 H, Plt Count 260, MPV 11.1, Immature Gran % (Auto) 0.300, Neut % (Auto) 57.2, Lymph % (Auto) 18.9 L, [place] % (Auto) 8.4, Eos % (Auto) 14.5 H, Baso % (Auto) 0.7, Absolute Neuts (auto) 5.7, Absolute Lymphs (auto) 1.89, Nucleated RBC % 0, Sodium 138, Potassium 3.6, Chloride 107, Carbon Dioxide 25.0, Anion Gap 7, BUN 21 H, Creatinine 1.17 H, Estim Creat Clear Calc 42.98, Est GFR (MDRD) Af Amer 58 L, Est GFR (MDRD) Non-Af 48 L, BUN/Creatinine Ratio 17.9, Glucose 131 H, Calcium 8.9, Phosphorus 4.4, Magnesium 2.0 02/21/24 06:20: POC Glucose 180 H 02/21/24 11:10: POC Glucose 204 H Radiography Diagnostic Testing: Radiology Impression Echocardiogram 02/20/24 12:39 Interpretation Summary Normal LV size. Severe concentric left ventricular hypertrophy. The left ventricular ejection fraction is 60 %. Stage 1 diastolic dysfunction. Ordering Physician: Jorge Anderson Referring Physician: MARIELOS GALDAMEZ Performed By: Crystal Kaplan RCS D/C Instructions Discharge Diet: Low fat / Low cholesterol and 1800 Calorie Control Diet Discharge Activity: Return to Normal Activity Call your doctor if you observe: Fever of 101 or Higher, Shortness of breath, Fainting spells and Chest pain Meaningful Use Info Meaningful Use Meaningful Use Diagnoses (Choose all that apply): None applicable Ischemic Stroke Statin Dosing Therapy Reference: STATIN DOSE THERAPY REFERENCE: * Patients > 75 years receive moderate or high dose statin therapy. * Patients 75 years or YOUNGER should receive HIGH intensity statin dose unless contraindicated. You will be required to document reason for non-treatment if statin daily dose does not meet guidelines. HIGH DOSE STATIN THERAPY DAILY Atorvastatin > than or = to 40 mg Rosuvastatin > than or = to 20 mg Amlodipine + Atorvastatin > than or = to 2.5/40 mg Ezetimibe + Simvastatin 10/80 mg Simvastatin 80mg Discharge Plan Admission Admit Date/Time: 02/19/24 17:24 Attending Provider: Kaushik Castro Primary Care Provider: Marielos Galdamez Consulting Providers: Galo Castelan; Jorge Anderson Discharge Orders/Prescriptions Prescriptions: New losartan 25 mg Tablet 25 mg PO DAILY Qty: 90 0RF Continued nitroglycerin 0.4 mg tablet, sublingual 0.4 mg sublingual Q5-15M PRN (Reason: chest pain) Qty: 90 6RF Rx Instructions: do not exceed 3 doses per episode insulin asp prt-insulin aspart [Novolog Mix 70-30FlexPen U-100] 100 unit/mL (70-30) insulin pen 60 unit subcut QAM insulin asp prt-insulin aspart [Novolog Mix 70-30 U-100 Insuln] 100 unit/mL (70-30) solution 65 unit subcut QPM duloxetine 60 mg capsule,delayed release(DR/EC) 60 mg PO DAILY cilostazol 100 mg tablet 100 mg PO BID allopurinol 300 mg tablet 300 mg PO BID aspirin 81 MG tablet 81 mg PO DAILY oxycodone-acetaminophen 5-325 mg tablet 1 tab PO TID PRN PRN (Reason: pain) rosuvastatin 10 mg tablet See Rx Instructions .ROUTE .COMPLEX Qty: 90 3RF Dose Instruction: TAKE 1 TABLET BY MOUTH EVERY DAY Rx Instructions: TAKE 1 TABLET BY MOUTH EVERY DAY furosemide 40 mg tablet 40 mg PO DAILY Qty: 90 3RF isosorbide mononitrate 60 mg tablet extended release 24 hr 60 mg PO BID Qty: 180 3RF metoprolol tartrate 50 mg tablet 50 mg PO BID Qty: 180 3RF Discontinued glimepiride 4 mg tablet 4 mg PO BID Referrals / Follow Up: Jorge Anderson MD [Med Staff - Active Staff] - Within 2 Weeks Marielos Galdamez DO [Primary Care Provider] - Within 2 Weeks Disposition Disposition (needs filled in before D/C Order can be placed): Home, Self Care Charges/Coding Visit Charges Inpatient E&M: 12015 Disch Hosp >30min
[2024-02-21] MEDS: Insulin Human 75/25 Kwickpen 80 UNIT SC (12:07)
--- NOTE | 2024-02-21 12:25 | CASEMGMT ---
Met with patient to complete BALTAZAR form. BALTAZAR form explained to patient who voiced understanding and signed form. Original form placed in pt?s chart and copy provided to patient. Sima Dhillon, Discharge Planning Asst
--- NOTE | 2024-02-21 13:23 | CASEMGMT ---
Patient has order for discharge. RN CM in to discuss needs at discharge, daughter in law at bedside. Patient denies needs or help at discharge. Patient had no further questions or concerns.
== END 2024-02-21 12:00 | disposition home or self-care (01) ==
LOC: ED 17:14 → PCU 17:34
PROVIDERS: Internal Medicine Cardiovascular Disease; Emergency Provider Emergency Medicine; PCP Family Medicine; Visit Provider Internal Medicine
DX: R07.89 Other chest pain (principal); E11.51 Type 2 diabetes mellitus with diabetic peripheral angiopathy without gangrene; Z79.4 Long term (current) use of insulin; N18.30 Chronic kidney disease, stage 3 unspecified; R06.02 Shortness of breath; Z87.891 Personal history of nicotine dependence; Q87.40 Marfan syndrome, unspecified; I12.9 Hypertensive chronic kidney disease with stage 1 through stage 4 chronic kidney disease, or unspecified chronic kidney disease; Z79.84 Long term (current) use of oral hypoglycemic drugs; I25.10 Atherosclerotic heart disease of native coronary artery without angina pectoris; Z95.1 Presence of aortocoronary bypass graft; Z98.2 Presence of cerebrospinal fluid drainage device; Z79.899 Other long term (current) drug therapy; M10.9 Gout, unspecified; E66.811 Obesity, class 1; Z68.34 Body mass index [BMI] 34.0-34.9, adult; F32.A Depression, unspecified
CPT/HCPCS: 36415; 71045; 71275; 78452; 80048; 82962; 83036; 83735; 83880; 84100; 84443; 84484; 85025; 85379; 85610; 93005; 93017; 93306; 96361; 96372; 96374; 99221; 99285; 99406; A9500; J7030; Q9967; A4216; G0378; J2785

== ENCOUNTER → 2024-09-18 | Outpatient (CLI) | payer MEDICARE, SELFPAY ==
[2019-11-14 08:38] VITALS: BMI 31.6
--- NOTE | 2024-09-18 12:33 | RAD_ITS ---
PROCEDURE: L/S SPINE MIN 4 VIEWS 09/18/2024 REASON FOR EXAM: PAIN, SCIATICA TECHNIQUE: Four views of the lumbar spine COMPARISON: None FINDINGS: There are 5 [id number] lumbar-type vertebral bodies. The pars are not well visualized due to patient positioning. There is no definite evidence of a pars defect. Grade 1 anterolisthesis of L4 on L5. Vertebral body heights are maintained. Prominent lateral osteophyte formation at L2-3. Multilevel disc height loss with facet arthrosis which is worst at L5-S1. Dense aortic atherosclerosis. RAD/L/S Spine Min 4 Views IMPRESSION: Moderate multilevel degenerative changes of the lumbar spine, worst at L5-S1. Grade 1 anterolisthesis of L4 on L5 is likely degenerative. Reading Location: [facility]
== END | disposition home or self-care (01) ==
LOC: MTRAD 12:31
PROVIDERS: PCP Family Medicine; Referring Provider Nurse Practitioner Family; Visit Provider Nurse Practitioner Family
DX: M54.41 Lumbago with sciatica, right side (principal)
CPT/HCPCS: 72110

== ENCOUNTER → 2024-11-02 | Outpatient (CLI) | payer MEDICARE, SELFPAY ==
[2019-11-14 08:38] VITALS: BMI 31.6
[2024-11-02 12:28] LABS: Anion Gap 15 (5-15); BUN 36 mg/dL (4-19); BUN/Creat Ratio 20.1 RATIO (10-20); Calcium,Total 9.9 mg/dL (7.6-11.0); Carbon Dioxide 23.7 mmol/L (21.0-32.0); Chloride 98 mmol/L (98-108); Glucose 127 mg/dL (70-99); Potassium 4.8 mmol/L (3.3-5.1)
--- OUTSIDE RECORDS SUMMARY | 2024-11-02 19:19 | XMS RPT_ITS | CCD ---
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 Marielos Perla Primary Care Provider Dr. Marielos Perla Referring Provider MD Bruce Dubon Attending Provider [phone] Dr. Marielos Perla Primary Care Provider Dr. Marielos Perla Referring Provider Huy TECHNICAL MARKETING CONSULTANT, TECHNICAL MARKETING CONSULTANT-C Kaley Attending Provider Lynn HOLLAND, [place] Jennifer Wright Attending Provider Dr. Marielos Perla DO Primary Care Provider Dr. Marielos Perla DO Referring Provider Elizabeth TECHNICAL MARKETING CONSULTANT-CCharlie Attending Provider [phone] Mike TECHNICAL MARKETING CONSULTANT-CRand Attending Provider Mike TECHNICAL MARKETING CONSULTANT-CRand Referring Provider Malys, Marielos Attending Unavailable Malys, Marielos Primary Care Unavailable Malys, Marielos Referring Unavailable Malys, Marielos Primary Care Unavailable Malys, Marielos Referring Unavailable Malys, Marielos Attending Unavailable Jopperi, Grant Attending Unavailable Jopperi, Grant Consulting Unavailable Malys, Marielos Primary Care Unavailable Joppgeovanna, Grant Admitting Unavailable Kaushik Castro Attending Unavailable Monica, [place] Consulting Unavailable Kaushik Castro Consulting Unavailable Monica, [place] Attending Unavailable Roof TECHNICAL MARKETING CONSULTANT, Charlie Cobos Attending Unavailable Malys, Marielos Referring Unavailable Malys, Marielos Primary Care Unavailable Roof TECHNICAL MARKETING CONSULTANT, Charlie Cobos Attending Unavailable Malys, Marielos Primary Care Unavailable Malys, Marielos Referring Unavailable Malys, Marielos Primary Care Unavailable Malys, Marielos Referring Unavailable Monica, Jorge Attending Unavailable Malys, Marielos Primary Care Unavailable Malys, Marielos Referring Unavailable Monica, [place] Attending Unavailable Malys, Marielos Attending Unavailable Malys, Marielos Primary Care Unavailable Malys, Marielos Referring Unavailable Malys, Marielos Primary Care Unavailable Keren Cordova Attending Unavailable Malys, Marielos Primary Care Unavailable Singh, Moose A Referring Unavailable Singh, Moose A Attending Unavailable Mike, Rand Referring Unavailable Mike, Rand Attending Unavailable Malys, Marielos Primary Care Unavailable Jopperi, Grant Consulting Unavailable Malys, Marielos Primary Care Unavailable Kaushik Castro Attending Unavailable Jopperi, Grant Admitting Unavailable Monica, [place] Consulting Unavailable Malys, Marielos Primary Care Unavailable Malys, Marielos Referring Unavailable Malys, Marielos Attending Unavailable Malys , Dr. Arceo Primary Care Provider [phone]. Marielos Perla DO Referring Provider Jennifer Thakkar Attending Provider [phone] Allergies Allergy Classification Reported Allergen(s) Allergy Type Date of Onset Reaction(s) Facility (13 sources) ceFAZolin Drug Allergy 9 Hives, Shortness Of Breath [place] (13 sources) Codeine Drug Allergy 9 Hives, Shortness Of Breath [place] (13 sources) Morphine Drug Allergy 9 Hives, Shortness Of Breath [place] (13 sources) Naloxone Drug Allergy 9 Hives, Shortness Of Breath [place] (13 sources) Pentazocine Drug Allergy 9 Hives, Shortness Of Breath [place] (12 sources) Acetaminophen Drug Allergy 2 Nausea [facility] (12 sources) atorvastatin Drug Allergy 2 Severe myalgias [facility] (13 sources) Pentazocine; Translations: [pentazocine lactate] Drug Allergy 2 Shortness of breath [facility] (1 source) Acetaminophen Drug Allergy 5 [facility] (1 source) atorvastatin Drug Allergy 5 [facility] (1 source) ceFAZolin Drug Allergy 5 [facility] (1 source) Codeine Drug Allergy 5 [facility] (1 source) Morphine Drug Allergy 5 [facility] (1 source) Naloxone Drug Allergy 5 [facility] (1 source) Pentazocine Drug Allergy 5 [facility] Medications Current Medications Medication Drug Class(es) Dates [...] / oxyCODONE hydrochloride 5 mg oral tablet (20 sources) Opioid Agonist Start: 02-19-2024 Oxycodone-Acetamino phen 5-325 mg tablet Active 1 {tbl} PO 3 TIMES DAILY NEEDED as needed for pain February 19, 2024 12:00am Start: 03-29-2022 End: 02-19-2024 Oxycodone-Acetaminophen (Per cocet) 5-325 mg tablet Discontinued 1 {tbl} PO Q8H as needed for pain 9 3 0 March 29, 2022 February 19, 2024 6:02pm Contusion of right shoulder Contusion of right shoulder, initial encounter Start: 03-28-2019 End: 03-28-2019 Oxycodone-Acetaminophen (Per cocet) 5-325 mg tablet Discontinued 1 {tbl} PO EVERY 6 HOURS as needed for pain 0 March 28, 2019 1:00am March 28, 2019 2:40pm Start: 03-03-2019 End: 03-10-2019 take 1 tablet by mouth every six hours as needed for pain oxyCODONE-acetaminophen (PERCOCET) 5-325 MG per tablet Indications: 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 28 tablet 0 03/03/2019 03/10/2019 Active Start: 02-27-2019 oxyCODONE-acet aminophen (PERCOCET) 5-325 MG per tablet 1 tablet albuterol 0.833 mg/ml / ipratropium bromide 0.167 mg/ml inhalant solution (2 sources) Anticholinergic, beta2-Adrenergic Agonist Start: 03-02-2019 ipratropium-albuterol (DUONEB) nebulizer solution 1 ampule Start: 02-27-2019 End: 02-28-2019 1 ampule, Inhalation, EVERY 4 HOURS WHILE AWAKE, First dose on 02/27/19 at 2000 allopurinol 300 mg oral tablet (2 sources) Xanthine Oxidase Inhibitor Start: 11-05-2023 take 1 tablet by mouth twice daily Allopurinol 300 mg tablet Active 300 mg PO TWICE A DAY November 05, 2023 12:00am gout aspirin 81 mg delayed release oral tablet (15 sources) Platelet Aggregation Inhibitor, Nonsteroidal Anti-inflammatory Drug Start: 02-22-2019 End: 02-26-2019 aspirin chewable tablet 81 mg Start: 12-15-2013 take 1 tablet by mouth once da rupert Aspirin 81 MG tablet Active 81 mg PO DAILY December 15, 2013 12:00am heart [employer] Start: 02-16-2006 take 1 tablet by mouth once da rupert aspirin 81 MG tablet Take 1 tablet by mouth daily 0 02/16/2006 Active bisacodyl 10 mg rectal suppository (1 source) Stimulant Laxative Start: 02-27-2019 take 10 mg rectal route once daily as needed for constipation 10 mg, Rectal, DAILY PRN, Constipation, Starting Wed02/27/19 at 1635 Second line therapy for constipation, After 24 hours, if no result from first line PRN therapy, give second line therapy in combination with first line therapy. Post-op cilostazol 100 mg oral tablet (14 sources) Phosphodiesterase 3 Inhibitor Start: 11-05-2023 take 1 tablet by mouth twice daily Cilostazol 100 mg tablet Active 100 mg PO TWICE A DAY November 05, 2023 12:00am anti platelet Start: 09-25-2021 End: 08-20-2022 take 1 tablet by mouth twice daily Cilostazol 100 mg tablet Discontinued 100 mg PO TWICE A DAY September 25, 2021 12:00am August 20, 2022 10:00am docusate sodium 50 mg / sennosides, nursing home 8.6 mg oral tablet (2 sources) Start: 02-27-2019 take 1 tablet by mouth twice daily sennosides-docusate sodium (SENOKOT-S) 8.6-50 MG tablet Take 1 tablet by mouth 2 times daily For stool softener 0 03/03/2019 Active DULoxetine 60 mg delayed release oral capsule (19 sources) Serotonin and Norepinephrine Reuptake Inhibitor Start: 08-20-2022 take 1 capsule by mouth once daily Duloxetine 60 mg capsule,delayed release(DR/EC) Active 60 mg PO DAILY August 20, 2022 12:00am mental health Start: 09-25-2021 End: 08-20-2022 take 1 capsule by mouth twice daily Duloxetine 20 mg capsule,delayed release(DR/EC) Discontinued 20 mg PO TWICE A DAY September 25, 2021 12:00am August 20, 2022 9:56am FLUoxetine 20 mg oral capsule (2 sources) Serotonin Reuptake Inhibitor Start: 02-16-2006 FLUoxetine (PROZAC) capsule 20 mg glimepiride 4 mg oral tablet (20 sources) Sulfonylurea Start: 11-02-2024 take 1 tablet by mouth twice daily Glimepiride 4 mg tablet Active 4 mg PO TWICE A DAY November 02, 2024 12:00am Start: 08-20-2022 End: 02-21-2024 take 1 tablet by mouth twice daily Glimepiride 4 mg tablet Discontinued 4 mg PO TWICE A DAY August 20, 2022 9:55am February 21, 2024 12:59pm Start: 07-15-2020 End: 08-20-2022 take 2 tablets by mouth once daily in the morning Glimepiride Discontinued 8 MG PO EVERY MORNING July 15, 2020 10:03am August 20, 2022 10:00am 2 tabs qAM Start: 06-05-2019 End: 08-20-2022 take 2 tablets by mouth once daily in the morning Glimepiride 4 mg tablet Discontinued 8 mg PO EVERY MORNING July 15, 2020 10:03am August 20, 2022 10:00am 2 tabs qAM Start: 02-20-2019 End: 06-05-2019 take 1 tablet by mouth once daily in the morning Glimepiride 4 mg tablet Discontinued 4 mg PO EVERY MORNING March 28, 2019 1:00am June 05, 2019 12:22pm glucagon (rdna) 1 mg injection (1 source) Antihypoglycemic Agent Start: 03-01-2019 glucago n (rDNA) injection 1 mg 150 ml glucose 50 mg/ml injection (4 sources) Start: 03-01-2019 dextrose 5 % s olution Start: 03-01-2019 glucose (GLUTO SE) 40 % oral gel 15 g Start: 03-01-2019 End: 03-01-2019 dextrose 50 % IV solution glucose monitoring kit (FREESTYLE) monitoring kit (1 source) Start: 03-03-2019 glucose monito ring kit (FREESTYLE) monitoring kit 1 kit by Does not apply route daily 1 kit 0 03/03/2019 Active glycerin 3 mg/ml / propylene glycol 10 mg/ml ophthalmic solution (1 source) Non-Standardized Chemical Allergen Start: 02-27-2019 propylene glycol-glycerin (artificial tears) 1-0.3 % ophthalmic solution SOLN 1 drop 1 ml heparin sodium, porcine 5000 unt/ml prefilled syringe (1 source) Unfractionated Heparin, Anti-coagulant Start: 03-01-2019 heparin (porcine) injection 5,000 Units insulin aspart protamine, human 70 unt/ml / insulin aspart, human 30 unt/ml injectable suspension (19 sources) Insulin Analog Start: 11-02-2024 Insulin Asp Prt-Insulin Aspart (Novolog Mix 70-30 U-100 Insuln) 100 unit/mL (70-30) solution Active 20 U SC EVERY MORNING November 02, 2024 10:21am diabetes Start: 03-09-2024 End: 11-02-2024 Insulin Asp Prt-Insulin Aspa rt (Novolog Mix 70-30 U-100 Insuln) 100 unit/mL (70-30) solution Discontinued 70 U SC EVERY EVENING March 09, 2024 2:19pm November 02, 2024 10:25am diabetes Start: 03-09-2024 End: 11-02-2024 Insulin Asp Prt-Insulin Aspa rt (Novolog Mix 70-30flexpen U-100) 100 unit/mL (70-30) insulin pen Discontinued 70 U SC EVERY MORNING March 09, 2024 2:18pm November 02, 2024 10:23am diabetes Start: 08-20-2022 End: 03-09-2024 Insulin Asp Prt-Insulin Aspa rt (Novolog Mix 70-30 U-100 Insuln) 100 unit/mL (70-30) solution Discontinued 65 U SC EVERY EVENING August 20, 2022 12:00am March 09, 2024 2:21pm diabetes Start: 08-20-2022 End: 03-09-2024 Insulin Asp Prt-Insulin Aspa rt (Novolog Mix 70-30flexpen U-100) 100 unit/mL (70-30) insulin pen Discontinued 60 U SC EVERY MORNING August 20, 2022 12:00am March 09, 2024 2:21pm diabetes insulin glargine 100 unt/ml injectable solution (6 sources) Insulin Analog Start: 03-03-2019 insulin glargi ne (LANTUS) injection vial 60 Units Start: 03-02-2019 End: 03-02-2019 insulin glargine (LANTUS) in jection vial 15 Units Start: 03-01-2019 End: 03-02-2019 insulin glargine (LANTUS) in jection vial 45 Units Start: 02-26-2019 End: 02-27-2019 insulin glargine (LANTUS) in jection vial 35 Units Start: 02-25-2019 End: 02-26-2019 insulin glargine (LANTUS) in jection vial 25 Units Start: 02-24-2019 End: 02-25-2019 insulin glargine (LANTUS) in jection vial 16 Units insulin lispro 100 unt/ml injectable solution (11 sources) Insulin Analog Start: 03-03-2019 insulin lispro (HUMALOG) injection vial 12 Units Start: 03-02-2019 End: 03-03-2019 insulin lispro (HUMALOG) inj ection vial 10 Units Start: 03-01-2019 insulin lispro (HUMALOG) injection vial 0-12 Units Start: 03-01-2019 End: 03-02-2019 insulin lispro (HUMALOG) inj ection vial 6 Units Start: 02-26-2019 End: 02-26-2019 insulin lispro (HUMALOG) inj ection vial 16 Units Start: 02-25-2019 End: 02-26-2019 insulin lispro (HUMALOG) inj ection vial 10 Units Start: 02-24-2019 End: 02-25-2019 insulin lispro (HUMALOG) inj ection vial 6 Units Start: 02-22-2019 End: 02-27-2019 insulin lispro (HUMALOG) inj ection vial 0-6 Units insulin, isophane (2 sources) Start: 03-03-2019 insulin NPH (N OVOLIN N) 100 UNIT/ML injection vial Inject 30 Units into the skin 2 times daily (before meals) 1 vial 3 03/03/2019 Active Start: 03-03-2019 End: 03-03-2019 insulin NPH (NOVOLIN N) 100 UNIT/ML injection vial Inject 30 Units into the skin 2 times daily (before meals) 1 vial 3 03/03/2019 03/03/2019 Discontinued (REORDER) 50 ml magnesium sulfate 40 mg/ml injection (1 source) Start: 02-27-2019 2 g, Intravenous, at 25 mL/h r, Administer over 2 Hours, PRN, Other, hypomagnesemia, Starting 02/27/19 at 1635 Via central line - If patient has acute/chronic renal failure do not initiate protocol, call MD for management. Mag level Dose Less than or equal to 1.0 Give 2 grams at 1 gm/hr. Call MD. Monitor BP and EKG. Repeat Magnesium level 60 minutes post infusion. 1.1 - 1.5 &nbsp ; & nbsp; &nb sp; Give 2 grams at 1 gm/hr. Repeat Magnesium level 60 minutes post infusion 1.6 - 1.9 & nbsp; &nb sp; &nb sp; Give 2 grams at 1 gm/hr. Repeat Magnesium level 60 minutes post infusion Greater than 1.9 &nbsp ; No coverage Post-op metoprolol tartrate 50 mg oral tablet (20 sources) b e t a - A d r e n e r g i c B l o c k e r Start: 12-03-2022 End: 12-13-2023 t rina k e 1 t a b l e t b y m o u t h t w i c e d a i l y Metoprolol Tartrate 50 mg tablet Active 50 mg PO TWICE A DAY 180 3 December 13, 2023 9:03am blood pressure Start: 03-28-2019 End: 12-03-2022 take 1 tablet by mouth twice daily Metoprolol Tartrate 25 mg tablet Discontinued 25 mg PO TWICE A DAY 180 4 August 20, 2022 3:00pm December 03, 2022 2:10pm Start: 02-22-2019 metoprolol tar trate (LOPRESSOR) tablet 25 mg mupirocin 0.02 mg/mg topical ointment (2 sources) RNA Synthetase Inhibitor Antibacterial Start: 02-26-2019 End: 03-03-2019 Nasal, 2 TIMES DAILY, First dose on Wed02/27/19 at 2100, For 4 days, Post-op nitroglycerin 0.4 mg sublingual tablet (13 sources) Nitrate Vasodilator Start: 05-26-2021 End: 11-02-2024 Nitroglycerin 0.4 mg tablet, sublingual Active 0.4 mg SL every 5 to 15 minutes as needed for chest pain 25 November 02, 2024 10:53am do not exceed 3 doses per episode Start: 05-26-2021 Nitroglycerin Active 0.4 MG SL every 5 to 15 minutes May 26, 2021 1:00am do not exceed 3 doses per episode 2 ml ondansetron 2 mg/ml injection (1 source) Serotonin-3 Receptor Antagonist Start: 02-27-2019 4 mg, Intravenous, EVERY 8 HOURS PRN, Nausea, Starting Wed02/27/19 at 1635, Post-op Tirzepatide (Mounjaro) 10 mg/0.5 mL pen injector (1 source) Start: 11-02-2024 Tirzepatide (M ounjaro) 10 mg/0.5 mL pen injector Active 10 mg SC .every week November 02, 2024 12:00am Completed/Discontinued Medications Medication Drug Class(es) Dates Sig (Normalized) Sig (Original) albuterol 1 mg/ml inhalant solution (1 source) beta2-Adrenergic Agonist Start: 02-28-2019 End: 02-28-2019 albuterol (PROVENTIL) nebulizer solution 10 mg atorvastatin 80 mg oral tablet (20 sources) HMG-CoA Reductase Inhibitor Start: 03-28-2019 End: 07-06-2019 take 1 tablet by mouth every other day Atorvastatin (Lipitor) 80 mg tablet Discontinued 80 mg PO .every other day March 28, 2019 2:52pm July 06, 2019 11:49am Start: 02-28-2019 take 1 tablet by kenrick th once daily atorvastatin (LIPITOR) 80 MG tablet Take 1 tablet by mouth nightly 30 tablet 3 03/03/2019 Active Start: 02-23-2019 End: 02-27-2019 atorvastatin (LIPITOR) table t 80 mg Start: 02-22-2019 End: 02-23-2019 atorvastatin (LIPITOR) table t 40 mg calcium gluconate 2 g in sodium chloride 0.9 % 100 mL IVPB (1 source) Start: 02-27-2019 2 g, Intraveno us, PRN, Starting Wed02/27/19 at 1635, Until Discontinued Via central line. Repeat serum ionized calcium 2 hours after infusion completed. Post-op chlorhexidine gluconate 1.2 mg/ml mouthwash (2 sources) Start: 02-27-2019 End: 03-01-2019 take 15 mL by mouth twice daily 15 mL, Mouth/Throat, 2 TIMES DAILY, First dose on Wed02/27/19 at 2100, For 7 days Rinse and spit. Do not swallow. Post-op Start: 02-26-2019 End: 02-27-2019 chlorhexidine (PERIDEX) 0.12 % solution 15 mL clopidogrel 75 mg oral tablet (1 source) P2Y12 Platelet Inhibitor Start: 02-22-2019 End: 02-23-2019 clopidogrel (PLAVIX) tablet 75 mg colchicine 0.6 mg oral tablet (7 sources) Start: 08-20-2022 End: 11-05-2023 take 1 tablet by mouth once daily Colchicine 0.6 mg tablet Discontinued 0.6 mg PO DAILY August 20, 2022 12:00am November 05, 2023 11:35am 12 hr dextromethorphan hydrobromide 30 mg / guaiFENesin 600 mg extended release oral tablet (1 source) Uncompetitive O-bvbmzf-I-asparta te Receptor Antagonist, Sigma-1 Agonist Start: 02-25-2019 End: 02-27-2019 dextromethorphan -guaiFENesin (MUCINEX DM) 30-600 MG per extended release tablet 1 tablet doxycycline monohydrate 100 mg oral capsule (2 sources) Tetracycline-class Drug Start: 10-01-2023 End: 11-05-2023 take 1 capsule by mouth twice daily Doxycycline Monohydrate 100 mg capsule Discontinued 100 mg PO TWICE A DAY October 01, 2023 12:00am November 05, 2023 11:35am 0.4 ml enoxaparin sodium 100 mg/ml prefilled syringe (1 source) Low Molecular Weight Heparin Start: 02-22-2019 End: 02-26-2019 inject 40 mg by subcutaneous injection once daily 40 mg, Subcutaneous, DAILY, First dose on Wed02/22/19 at 1530 escitalopram 10 mg oral tablet (20 sources) Serotonin Reuptake Inhibitor Start: 02-20-2019 End: 09-25-2021 take 1 tablet by mouth once daily Escitalopram Oxalate (Lexapro) 10 mg tablet Discontinued 10 mg PO DAILY March 28, 2019 1:00am September 25, 2021 1:00pm furosemide 40 mg oral tablet (20 sources) Loop Diuretic Start: 08-20-2022 End: 06-19-2024 take 1 tablet by mouth once daily Furosemide 40 mg tablet Discontinued 40 mg PO DAILY 90 3 August 02, 2023 11:27am June 19, 2024 11:48am diuretic Start: 07-15-2020 End: 08-20-2022 take 1 tablet by mouth every other day Furosemide 40 mg tablet Discontinued 0 .ROUTE .COMPLEX 45 4 July 02, 2022 11:08am August 20, 2022 10:02am TAKE 1 TABLET BY MOUTH EVERY OTHER DAY FOR SHORTNESS OF BREATH Start: 12-05-2019 End: 07-15-2020 take 1 tablet by mouth once daily Furosemide (Lasix) 40 mg tablet Discontinued 40 mg PO DAILY 45 4 December 05, 2019 11:02am July 15, 2020 10:18am SOB Start: 08-03-2019 End: 12-05-2019 take 1 tablet by mouth every other day Furosemide (Lasix) 40 mg tablet Discontinued 40 mg PO .every other day 45 4 August 03, 2019 10:24am December 05, 2019 11:02am SOB Start: 06-05-2019 End: 08-03-2019 take 1 tablet by mouth once daily Furosemide (Lasix) 40 mg tablet Discontinued 40 mg PO DAILY 90 4 June 27, 2019 8:52am August 03, 2019 10:27am SOB Start: 06-05-2019 End: 06-05-2019 take 1 tablet by mouth twice daily Furosemide (Lasix) 40 mg tablet Discontinued 40 mg PO TWICE A DAY June 05, 2019 12:21pm June 05, 2019 12:49pm SOB Start: 04-21-2019 End: 06-05-2019 take 1 tablet by mouth two times weekly Furosemide (Lasix) 40 mg tablet Discontinued 40 mg PO TWICE A WEEK 30 April 21, 2019 6:16pm June 05, 2019 12:22pm SOB Start: 03-28-2019 End: 04-21-2019 take 1 tablet by mouth once daily as needed Furosemide (Lasix) 40 mg tablet Discontinued 40 mg PO DAILY as needed for SOB 30 2 March 28, 2019 1:00am April 21, 2019 6:17pm Start: 02-28-2019 End: 02-28-2019 furosemide (LASIX) injection 40 mg Start: 02-28-2019 End: 02-28-2019 furosemide (LASIX) injection 40 mg Start: 02-28-2019 End: 02-28-2019 furosemide (LASIX) 10 MG/ML injection insulin regular (HUMULIN R;NOVOLIN R) 100 Units in sodium chloride 0.9 % 100 mL infusion (1 source) Start: 02-27-2019 End: 03-01-2019 take 1 [IU] intravenous route every hour 1 Units/hr (1 mL/hr), Intravenous, at 1 mL/hr, CONTINUOUS, Starting Wed02/27/19 at 1700 Target glucose 90-120mg/dl; if glucose <40 or >500 draw confirmation and send to lab; While on insulin drip follow hypoglycemic orders as outlined below. o Blood Glucose Initial Administration Rate/Additional IV Insulin Bolus protocol > 90-120mg/dl - 1 unit/hr 121-150mg/dl - 2 units/hr 150-180mg/dl - 2.5 units/hr 181- 240mg/dl - 3.5 units/hr + 4 unit bolus 241-300mg/dl - 5 units/hr + 6 unit bolus 301-360mg/dl - 6.5 units/hr + 8 unit bolus > 360mg/dl - 8 units/hr + 10 unit bolus o Glucose by finger stick 30 minutes after infusion has started, then per Floor Blood Glucose guidelines below o When BGT is between 90-120mg/dl with < 15mg/dl change and insulin rate remains unchanged x 3 hours, then may test every 2 hours. o Adjust insulin infusion rate in response to blood glucose levels as follows: o < 60mg/dl: BGT check in 30 minutes: 1. Stop infusion. 2. Give 25ml dextrose 50% IVP, recheck BG in 30 mins When BG is > 80 and < 120mg/dl, restart drip at 50% of the previous rate, recheck in 30 minutes. If BG > 120, restart drip at 75% of the previous rate, recheck in 30 minutes o 60-69mg/dl: BGT check in 30 minutes: 1. Stop infusion. If previous BG > 100mg/dl give 25ml dextrose 50% IVP, recheck BG in 30 minutes. When BG > 80 and < 120mg/dl, restart drip at 50% of previous rate, recheck BG in 30 minutes. If BG > 120mg/dl or more restart drip at 75% of the previous rate, recheck BG in 30 minutes. o 70-89mg/dl: BGT check every 1 hour. Has BG dropped > 10mg/dl from the last BG? Yes: Decrease rate by 50% Has BG dropped from the last BG < 10mg/dl or = to 10mg/dl? Yes: decrease the rate by 0.5units/hr. If BG greater than or equal to the last test, maintain same rate. o 90-120mg/dl: BGT check in 1 hour. TITRATE DRIP RATE TO MAINTAIN THIS RANGE Has BG increased > 10mg/dl from the last BG? Yes: increase rate by 0.5units/hr. Has BG dropped from the last BG by more than 10mg/dl? Yes: decrease the rate by 0.5 units/hr: No: Same rate. o 121-150mg/dl: BGT check in 1 hour Has BG dropped 20-50mg/dl from last BG? Yes: Same rate. Has BG increased from last BG by > 20mg/dl? Yes: increase rate by 1.5 units/hr. Has BG dropped by more than 50mg/dl? Yes: decrease rate by 50%. Is BG within 20mg/dl of the last test? Yes: increase rate by 1 unit/hr. o 151-180mg/dl: BGT check every 1 hour Has BG dropped > 30mg/dl? Yes: same rate Has BG dropped from last BG by < 30 mg/dl OR is BG higher than the last test? Yes: increase rate by 1.5 units/hr. o 181-240mg/dl: BGT check in 1 hour Is BG 50-100mg/dl lower from the last BG? Yes: continue at the same rate. Is BG lower than the last BG by >100mg/dl? Yes: decrease rate by 25%. Is BG lower than the last BG by < 50mg/dl OR higher than the last test? Yes: bolus with 4 units insulin IV and increase rate by 2 units/hr. Note: If BG 181-240mg/dl and has not dropped after 3 consecutive increases in insulin, then bolus with 4 units and double the insulin rate. o > 240mg/dl: BGT check in 30 minutes Has BG dropped > 100mg/dl from last BG? Yes: same rate Is BG lower than the last test by < 100mg/dl OR higher than the last test? Yes: IV Bolus with regular insulin as per IV infusion Bolus dosage scale and double insulin drip rate. o > 300mg/dl: Continue to follow the appropriate interventions based on BGT and call the Provider Relations Manager. o Maximum insulin infusion drip rate may not exceed 30 units/hr; Insulin drip may NOT be discontinued unless approved by Provider Relations Manager. Discontinue all subcutaneous Insulin orders (if patient is on subcutaneous insulin). Post-op 24 hr isosorbide mononitrate 60 mg extended release oral tablet (20 sources) Nitrate Vasodilator Start: 06-04-2021 End: 11-02-2024 take 1 tablet by mouth twice daily, then take 1 tablet by mouth every twenty-four hours Isosorbide Mononitrate 60 mg tablet extended release 24 hr Discontinued 60 mg PO TWICE A DAY 180 3 September 25, 2024 8:42am November 02, 2024 10:23am heart Start: 03-19-2021 End: 06-04-2021 take 1 tablet by mouth twice daily, then take 1 tablet by mouth every twenty-four hours Isosorbide Mononitrate 30 mg tablet extended release 24 hr Discontinued 30 mg PO TWICE A DAY 60 March 19, 2021 6:27pm June 04, 2021 9:40am this is a dose increase Start: 03-06-2021 End: 03-19-2021 take 1 tablet by mouth once daily, then take 1 tablet by mouth every twenty-four hours Isosorbide Mononitrate 30 mg tablet extended release 24 hr Discontinued 30 mg PO DAILY 30 March 06, 2021 1:00am March 19, 2021 6:28pm linagliptin 5 mg oral tablet (12 sources) Dipeptidyl Peptidase 4 Inhibitor Start: 07-15-2020 End: 01-16-2021 take 1 tablet by mouth once daily Linagliptin 5 mg tablet Discontinued 5 mg PO DAILY July 15, 2020 12:00am January 16, 2021 10:25am lisinopril 5 mg oral tablet (1 source) Angiotensin Converting Enzyme Inhibitor Start: 02-22-2019 End: 02-26-2019 lisinopril (PRINIVIL;ZESTRIL) tablet 10 mg losartan potassium 25 mg oral tablet (4 sources) Angiotensin 2 Receptor [place] Start: 02-21-2024 End: 11-02-2024 take 1 tablet by mouth once daily Losartan 25 mg tablet Discontinued 25 mg PO DAILY 90 May 15, 2024 11:17am November 02, 2024 10:23am metFORMIN hydrochloride 1000 mg oral tablet (13 sources) Biguanide Start: 02-20-2019 End: 03-28-2019 take 1 tablet by mouth at bedtime Metformin 1000 MG tablet Discontinued 1000 mg PO AT BEDTIME February 20, 2019 1:00am March 28, 2019 1:35pm Diabetes Start: 06-30-2006 End: 03-03-2019 take 1 tablet by mouth once daily metFORMIN (GLUCOPHAGE) 500 MG tablet Take 1 tablet by mouth nightly 0 06/30/2006 03/03/2019 Discontinued (Stop Taking at Discharge) multivitamin capsule (10 sources) Start: 03-28-2019 End: 08-20-2022 take 1 capsule by mouth once daily multivitamin capsule Discontinued 1 CAP PO DAILY March 28, 2019 12:00am August 20, 2022 9:00am Start: 03-28-2019 End: 08-20-2022 take 1 capsule by mouth once daily multivitamin capsule Discontinued 1 CAP PO DAILY March 28, 2019 1:00am August 20, 2022 10:00am Start: 03-28-2019 take 1 capsule by [facility] once daily multivitamin capsule Active 1 CAP PO DAILY March 28, 2019 1:00am Start: 03-28-2019 take 1 capsule by mo [facility] once daily multivitamin capsule Active 1 CAP PO DAILY March 28, 2019 12:00am Multivitamin capsule (2 sources) Start: 03-28-2019 End: 08-20-2022 Multivitamin capsule Discontinued 1 NMA PO DAILY March 28, 2019 1:00am August 20, 2022 10:00am nitroPRUSSide (NIPRIDE) 50 mg in dextrose 5 % 250 mL infusion (1 source) Start: 02-27-2019 End: 03-01-2019 0.1 mcg/kg/min 79.8 kg (2.394 mL/hr, rounded to 2.4 mL/hr), Intravenous, at 2.4 mL/hr, CONTINUOUS PRN, Initiate if SBP greater 130 mmHg, Starting Wed02/27/19 at 1635 Initial rate: 0.1 mcg/kg/min Ma x rate: 2 mcg/kg/min Ti trate by 0.25 mcg/kg/min no faster than 15 minutes to maintain goal SBP less than 130 mmHg but greater than 90 mmHg Infusion Titrations: If SBP falls below 90 mmHg, wean drip by 0.25 mcg/kg/min no faster than 15 minutes to achieve hemodynamic goals (SBP greater than 90 but less than 130). May titrate outside of defined titration parameters (increments and frequency) under direction of provider. If hemodynamic goal unattained at instructed max dose, notify provider. Post-op pantoprazole 40 mg delayed release oral tablet (14 sources) Proton Pump Inhibitor Start: 03-01-2019 End: 04-03-2019 take 1 tablet by mouth once daily Pantoprazole (Protonix) 40 mg tablet,delayed release (DR/EC) Discontinued 40 mg PO DAILY March 28, 2019 1:00am March 28, 2019 2:41pm polyethylene glycol 3350 37199 mg powder for oral solution (14 sources) Osmotic Laxative Start: 02-27-2019 End: 04-03-2019 Polyethylene Glycol 3350 (Glycolax) 17 gram/dose powder Discontinued 17 g PO DAILY as needed for constipation March 28, 2019 1:00am March 28, 2019 2:41pm potassium chloride 10 meq extended release oral tablet (20 sources) Start: 06-20-2019 End: 11-05-2023 take 2 tablets by mouth once daily Potassium Chloride 10 mEq tablet extended release Discontinued 20 meq PO DAILY 180 3 December 09, 2020 11:24am November 05, 2023 11:35am When taking Lasix Take when taking Lasix. Start: 06-20-2019 End: 12-09-2020 take 20 mEq by mouth once daily Potassium Chloride Dis continued 20 MEQ PO DAILY 180 June 27, 2019 8:52am January 08, 2020 11:25am Take when taking Lasix. Start: 06-05-2019 End: 06-05-2019 take 1 tablet by mouth twice daily Potassium Chloride 10 mEq tablet extended release Discontinued 10 meq PO TWICE A DAY June 05, 2019 12:21pm June 05, 2019 12:49pm When taking Lasix Take when taking Lasix. Start: 03-28-2019 End: 06-20-2019 take 1 tablet by mouth once daily Potassium Chloride 10 mEq tablet extended release Discontinued 10 meq PO DAILY 90 3 June 05, 2019 12:48pm June 20, 2019 4:23pm When taking Lasix Take when taking Lasix. Start: 02-27-2019 End: 02-28-2019 20 mEq, Intravenous, at 50 m L/hr, Administer over 60 Minutes, PRN, Other, hypokalemia, Starting Wed02/27/19 at 1635 Via central line - do not use if urine output below 30 mL/hr or if patient is on peritoneal or hemodialysis. Potassium level Dose Less than or equal to 3.5 &nb sp; &nb sp; &nb sp; &nb sp; &nb sp; &nb sp; &nb sp; &nb sp; Give 20mEq x 3 doses 3.6 - 4.0 &nb sp; &nb sp; &nb sp; &nb sp; &nb sp; &nb sp; &nb sp; &nb sp; &nb sp; &nb sp; &nb sp; &nb sp; &nb sp;Give 20 mEq x 2 doses 4.1 - 4.5 &nb sp; &nb sp; &nb sp; &nb sp; &nb sp; &nb sp; &nb sp; &nb sp; &nb sp; &nb sp; &nb sp; &nb sp; &nb sp;Give 20mEq x 1 dose 4.6 - 5.9 &nb sp; &nb sp; &nb sp; &nb sp; &nb sp; &nb sp; &nb sp; &nb sp; &nb sp; &nb sp; &nb sp; &nb sp; &nb sp;No coverage Less than or equal to 2 or Greater than or equal to 6 &nbsp ; Call surgeon. Repeat potassium level 1 hour post-infusion and follow protocol as indicated. Post-op 100 ml propofol 10 mg/ml injection (1 source) General Anesthetic Start: 02-27-2019 End: 03-01-2019 10 mcg/kg/min 79.8 kg (4.788 mL/hr, rounded to 4.8 mL/hr), Intravenous, at 4.8 mL/hr, CONTINUOUS, Starting Wed02/27/19 at 1700 For sedation, titrate to RASS +1 to -1 Dose Range: 5 to 50 mcg/kg/min Max dose: 50 mcg/kg/min Contact physician if max dose does not achieve desired response If RASS 1 point below goal - decrease rate by 5mcg/kg/min no faster than every 5 min If RASS 2 points below goal- decrease rate by 10mcg/kg/min no faster than every 5 min If RASS at goal, continue current rate If RASS 2 or more points above goal - increase rate by 10mcg/kg/min no faster than every 5 min If RASS 1 point above goal - increase rate by 5mcg/kg/min no faster than every 5 min If after titration rate change patient exhibits adverse hemodynamic response, next titration rate change may be adjusted by one-half of the previous rate change If patient fails sedation interruption, resume propofol titration at 50% of previous rate Do not administer through the same I.V. catheter with blood or plasma. Tubing and any unused portions of propofol vials should be discarded after 12 hours. Post-op quinapril 20 mg oral tablet (13 sources) Angiotensin Converting Enzyme Inhibitor Start: 06-15-2006 End: 03-28-2019 take 1 tablet by mouth once daily Quinapril 20 MG tablet Discontinued 20 mg PO DAILY February 20, 2019 1:00am March 28, 2019 1:35pm blood pressure insulin, regular, human 100 unt/ml injectable solution (20 sources) Insulin Start: 01-16-2021 End: 08-20-2022 Insulin Regular Human 100 unit/mL solution Discontinued 32 U SC TWICE A DAY January 16, 2021 10:25am August 20, 2022 9:59am 70/30 46 units and 48 qpm Start: 07-15-2020 End: 01-16-2021 Insulin Regular Human 100 un it/mL solution Discontinued 32 U SC TWICE A DAY July 15, 2020 12:00am January 16, 2021 10:26am Start: 06-05-2019 End: 05-08-2020 Insulin Regular Human (Novol in R Regular U-100 Insuln) 100 unit/mL solution Discontinued 20 U SC TWICE A DAY June 05, 2019 12:22pm May 08, 2020 10:46am Start: 03-28-2019 End: 06-05-2019 Insulin Regular Human (Novol in R Regular U-100 Insuln) 100 unit/mL solution Discontinued 30 U SC TWICE A DAY March 28, 2019 1:00am June 05, 2019 12:22pm Start: 03-28-2019 End: 03-28-2019 Insulin Regular Human (Novol in R Regular U-100 Insuln) 100 unit/mL solution Discontinued 12 U SC THREE TIMES A DAY March 28, 2019 1:00am March 28, 2019 2:40pm Start: 03-03-2019 End: 03-03-2019 insulin regular (NOVOLIN R) 100 UNIT/ML injection Inject 12 Units into the skin 3 times daily (before meals) 1 vial 3 03/03/2019 Active Start: 03-01-2019 insulin regula r (HUMULIN R;NOVOLIN R) injection 10 Units Start: 02-27-2019 insulin regula r (HUMULIN R;NOVOLIN R) injection 4 Units Start: 02-27-2019 End: 03-02-2019 inject 2 [IU] by subcutaneous injection once as needed 4 Units, Subcutaneous, PRN, High Blood Sugar, Insulin Bolus per Post op Open Heart Insulin drip, Starting 02/27/19 at 1635 Post Open Heart Insulin Drip To be used as outlined in protocol for Blood Sugar Range between 181-240: If patient's blood sugar is 50-100 mg/dl lower from previous blood sugar then continue same rate. If blood sugar is lower than last blood sugar by greater than 100 then decrease rate by 25%; if blood sugar is lower than previous blood sugar by less than 50 mg/dl or higher than last blood sugar then initiate PRN bolus and bolus with 4 units IV and increase rate by 2 units/hr. Intervention to be used only when patient is on insulin drip for post op open heart surgery. When insulin drip discontinued, order no longer valid. rosuvastatin calcium 10 mg oral tablet (20 sources) HMG-CoA Reductase Inhibitor Start: 07-06-2019 End: 04-17-2024 take 1 tablet by mouth once daily Rosuvastatin 10 mg tablet Discontinued 0 .ROUTE .COMPLEX 90 3 April 06, 2023 12:31pm April 17, 2024 1:14pm cholesterol TAKE 1 TABLET BY MOUTH EVERY DAY sennosides, nursing home 8.6 mg oral tablet (20 sources) Start: 07-09-2020 End: 05-26-2021 take 1 tablet by mouth twice daily Sennosides 8.6 MG tablet Discontinued 8.6 mg PO TWICE A DAY July 09, 2020 12:00am May 26, 2021 2:59pm Start: 03-28-2019 End: 05-08-2020 take 1 tablet by mouth twice daily Sennosides (Senokot) 8.6 mg tablet Discontinued 8.6 mg PO TWICE A DAY March 28, 2019 1:00am May 08, 2020 10:46am SITagliptin 50 mg oral tablet (12 sources) Dipeptidyl Peptidase 4 Inhibitor Start: 01-08-2020 End: 05-08-2020 take 1 tablet by mouth once daily Sitagliptin Phosphate (Januvia) 50 mg tablet Discontinued 50 mg PO DAILY January 08, 2020 12:00am May 08, 2020 10:46am 50 ml sodium chloride 9 mg/ml injection (5 sources) Start: 02-28-2019 End: 02-28-2019 0.9 % sodium chloride bolus Start: 02-27-2019 take 10 mL intravenous route o nce 10 mL, Intravenous, PRN, Line Care, Starting Wed02/27/19 at 1635 After every IV line use Post-op Start: 02-27-2019 End: 03-02-2019 Intravenous, at 20 mL/hr, CONTINUOUS, Starting Wed02/27/19 at 1700 20 ml/hr to SP(introducer) and WT on Wetmore Jose Catheter; once [place] discontinued run at 20 ml/hr through SP(introducer) Post-op Start: 02-22-2019 End: 02-27-2019 10 mL, Intravenous, EVERY 12 HOURS SCHEDULED (2 times per day), First dose on Wed02/27/19 at 2100, Post-op Tirzepatide (Mounjaro) 2.5 mg/0.5 mL pen injector (2 sources) Start: 06-05-2024 End: 11-02-2024 Tirzepatide (Mounjaro) 2.5 mg/0.5 mL pen injector Discontinued 2.5 mg SC EVERY WEEK June 05, 2024 1:00am November 02, 2024 10:24am Start: 06-05-2024 Tirzepatide (M ounjaro) 2.5 mg/0.5 mL pen injector Active 2.5 mg SC EVERY WEEK June 05, 2024 1:00am 200 ml vancomycin 5 mg/ml injection (1 source) Glycopeptide Antibacterial Start: 02-27-2019 End: 02-28-2019 1,000 mg (12.5 mg/kg), Intravenous, at 200 mL/hr, Administer over 60 Minutes, EVERY 12 HOURS, First dose on Wed02/27/19 at 1700, For 2 doses Problems Active Problems Problem Classification Problem Date Documented Date Episodic/Chronic Cardiac dysrhythmias (8 sources) Palpitations; Translations: [Palpitations] 11-18-2022 Episodic Chronic obstructive pulmonary disease and bronchiectasis (2 sources) Bronchitis; Translations: [Bronchitis, not specified as acute or chronic] 10-09-2023 Episodic Complication of device; implant or graft (12 sources) Loosening of knee joint prosthesis; Translations: [Mechanical loosening of other internal prosthetic joint, initial encounter] 05-19-2021 Episodic Conditions associated with dizziness or vertigo (12 sources) Dizziness; Translations: [Dizziness and giddiness] 01-16-2021 Episodic Congestive heart failure; nonhypertensive (2 sources) Systolic heart failure; Translations: [HFrEF (heart failure with reduced ejection fraction)] 02-23-2019 Chronic Coronary atherosclerosis and other heart disease (14 sources) Coronary arteriosclerosis in knik artery; Translations: [Coronary atherosclerosis] Onset: 02-22-2019 03-03-2019 Chronic Comment on above: CABG x3 with GIRALDO to LAD, SVG to OM 2, and SVG to PDA of RCA on 02/27/[address] Taylor at [facility]; Diabetes mellitus with complications (1 source) Type 2 diabetes mellitus with hyperglycemia; Translations: [Type 2 diabetes mellitus with hyperglycemia] Onset: 02-20-2024 Chronic Diabetes mellitus without complication (15 sources) Type 2 diabetes mellitus; Translations: [Diabetes mellitus] 02-23-2019 Chronic Disorders of lipid metabolism (20 sources) Hyperlipidemia; Translations: [Hyperlipidemia, unspecified] Onset: 03-02-2024 03-28-2019 Chronic Esophageal disorders (12 sources) Gastroesophageal reflux disease; Translations: [Gastro-esophageal reflux disease without esophagitis] 02-21-2019 Chronic Essential hypertension (20 sources) Hypertensive disorder; Translations: [Essential hypertension] Onset: 03-02-2024 02-23-2019 Chronic Fluid and electrolyte disorders (2 sources) Hyperkalemia; Translations: [Hyperkalemia] 03-03-2019 Episodic Gout and other crystal arthropathies (1 source) Gout, unspecified; Translations: [Gout, unspecified] Onset: 12-07-2023 Chronic Nonspecific chest pain (19 sources) Chest pain; Translations: [Chest pain, unspecified] Onset: 03-02-2024 02-21-2019 Episodic Other and ill-defined heart disease (2 sources) Left ventricular systolic dysfunction; Translations: [Other ill-defined heart diseases] 11-02-2024 Chronic Other connective tissue disease (12 sources) History of prosthetic unicompartmental arthroplasty of left knee; Translations: [Presence of left artificial knee joint] 05-19-2021 Chronic Other connective tissue disease (7 sources) Unspecified rotator cuff tear or rupture of right shoulder, not specified as traumatic; Translations: [Tear of right rotator cuff] 06-09-2022 Episodic Other connective tissue disease (4 sources) Tear of right rotator cuff; Translations: [Unspecified rotator cuff tear or rupture of right shoulder, not specified as traumatic] 06-09-2022 Episodic Other lower respiratory disease (14 sources) Dyspnea on exertion; Translations: [Other forms of dyspnea] 01-16-2021 Episodic Other lower respiratory disease (9 sources) Dyspnea; Translations: [Shortness of breath] 08-14-2022 Episodic Other screening for suspected conditions (not mental disorders or infectious disease) (12 sources) Cardiovascular stress test abnormal; Translations: [Abnormal result of other cardiovascular function study] 02-21-2019 Episodic Peripheral and visceral atherosclerosis (20 sources) Peripheral vascular disease, unspecified; Translations: [Peripheral arterial disease] Onset: 10-11-2023 03-28-2019 Chronic Comment on above: Right lower extremit y arterial occlusive disease consistent with right superficial femoral artery 01/09/2017; Skin and subcutaneous tissue infections (2 sources) Cellulitis; Translations: [Cellulitis, unspecified] 10-09-2023 Episodic Spondylosis; intervertebral disc disorders; other back problems (1 source) Lumbago with sciatica, right side; Translations: [Lumbago with sciatica, right side] Onset: 09-23-2024 Episodic Superficial injury; contusion (20 sources) Contusion of shoulder region; Translations: [Contusion of right shoulder, initial encounter] 04-06-2022 Episodic Past or Other Problems Problem Classification Problem Date Documented Date Episodic/Chronic Coronary atherosclerosis and other heart disease (8 sources) History of coronary artery bypass grafting; Translations: [Presence of aortocoronary bypass graft] Onset: 02-17-2019 03-03-2019 Episodic Other aftercare (1 source) Encounter for therapeutic drug level monitoring; Translations: [Encounter for therapeutic drug level monitoring] Onset: 10-18-2023 Episodic Other lower respiratory disease (1 source) Other forms of dyspnea; Translations: [Other forms of dyspnea] Onset: 03-02-2024 Episodic Other non-traumatic joint disorders (1 source) Pain in right knee; Translations: [Pain in right knee] Onset: 10-04-2023 Episodic Residual codes; unclassified (12 sources) History of cardiac catheterization; Translations: [Other specified postprocedural states] Onset: 05-20-2021 06-03-2021 Episodic Comment on above: LEFT MAIN: Mild laurence nal irregularities; LEFT ANTERIOR DESCENDING ARTERY:PROX LAD: Mild calcification, long: diffuse: 90 % Stenosis; DIAGONAL 1: Proximal - small caliber vessel: long: diffuse: 90 % Stenosis; CIRCUMFLEX ARTERY: PROX CIRC: long: diffuse: 25 % Stenosis; MID CIRC: Mild luminal irregularities; OM 2: Distal - is occluded and fills partially from left to left collateral flow; RIGHT CORONARY ARTERY: Unable to be selectively engaged and injection despite attempts with multiple coronary catheters; GRAFTS: GIRALDO graft to the Mid LAD is patent with no angiographically significant disease distal to the graft attachment; Saphenous Vein graft to the 2nd OM is totally occluded; Saphenous Vein graft to the RPDA is patent with no angiographically significant disease distal to the graft attachment; COLLATERAL FLOW: Collateral flow from Left to Left; AORTIC ROOT: Angiographically normal per cardiac cath 06/03/21; LEFT MAIN: Catherter engagement: arterial wave form: ventricularization, proximal: 50 % Stenosis; LEFT ANTERIOR DESCENDING ARTERY: OSTIAL LAD: 90 % Stenosis, PROX LAD: 85 % serial Stenosis, MID LAD: Mild luminal irregularities, 25 - 50 % Stenosis; DIAGONAL 1: Proximal - long: diffuse: 90 % Stenosis; CIRCUMFLEX ARTERY: PROX CIRC: hazy: 75 % Stenosis, MID CIRC: Mild luminal irregularities; RIGHT CORONARY ARTERY: Mild luminal irregularities, MID RCA: 50 % Stenosis; RT PDA: Ostial - 85 % Stenosis; AORTIC ROOT: Angiographically normal per cath 02/22/19 Results Test Name Value Interpretation Reference Range Facility L/S Spine Min 4 Viewson 06-0 -2024 L/S Spine Min 4 Views [facility] Imaging Services [address] [place] [address] (378) L/S Spine Min 4 Views MR#: [id number] Acct: [id number] Name: CHRISTY FRANCIS Rep #: [id number] : 1950 F 74 From: Bryce Serrano MD PCP: Dr. Marielos Perla, DO Status: REG CLI Study: L/S Spine Min 4 Views Date of Exam: 09/18/24 Exam# [id number] Ordering Dr: Rand Mckeon PROCEDURE: L/S SPINE MIN 4 VIEWS 09/18/2024 REASON FOR EXAM: PAIN, SCIATICA TECHNIQUE: Four views of the lumbar spine COMPARISON: None FINDINGS: There are 5 [id number] lumbar-type vertebral bodies. The pars are not well visualized due to patient positioning. There is no definite evidence of a pars defect. Grade 1 anterolisthesis of L4 on L5. Vertebral body heights are maintained. Prominent lateral osteophyte formation at L2-3. Multilevel disc height loss with facet arthrosis which is worst at L5-S1. Dense aortic atherosclerosis. RAD/L/S Spine Min 4 Views IMPRESSION: Moderate multilevel degenerative changes of the lumbar spine, worst at L5-S1. Grade 1 anterolisthesis of L4 on L5 is likely degenerative. Reading Location: [facility] CC: JOHNATHON Mckeon; Dr. 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 [place] [address] OFFICE VISIT Date of Service: 06/05/24 MR#: [id number] Acct: [id number] Name: CHRISTY FRANCIS Rep #: [id number] : 1950 Provider: JOHNATHON olivas Age/Sex: 74/F Location[place] [facility] [place] Status: Signed HPI HPI History of Present Illness Details: This is a 74-year-old white female who presents today for outpatient cardiovascular follow-up visit. She has a history of underlying CAD status post CABG ([facility]: 02-27-2019: GIRALDO to the LAD, SVG to OM 2, and SVG to RCA/PDA), ischemic mediated cardiomyopathy, hyperlipidemia, hypertension, and peripheral arterial occlusive disease (especially lower extremities for which she follows with Dr. Singh of peripheral vascular surgery). She denies chest, arm, jaw, or neck discomfort. She denies palpitations. She denies bilateral lower extremity edema. She denies claudication. She states shortness of breath with activity such as going up steps. She denies shortness of breath at rest, orthopnea, or PND. She denies chronic cough. She denies significant, sudden weight gain. She denies lightheadedness, dizziness, near- syncope, or syncope. She denies blood in urine, blood in stool, or epistaxis. He denies fever with chills. She denies myalgia. She denies fatigue. Her exercise level has remained stable. 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: No Is patient in pain?: No Allergies cefazolin Allergy (Verified 06/05/24 10:59) Shortness of breath codeine Allergy (Verified 06/05/24 10:59) Shortness of breath morphine Allergy (Verified 06/05/24 10:59) Other naloxone (Naloxone) Allergy (Verified 06/05/24 10:59) Shortness of breath pentazocine Allergy (Verified 06/05/24 10:59) Shortness of breath pentazocine lactate (From Talwin) Allergy (Verified 03/09/24 13:16) Shortness of breath atorvastatin Adverse Reaction (Severe, Verified 06/05/24 10:59) Severe myalgias acetaminophen (From Tylenol) Adverse Reaction (Verified 06/05/24 10:59) Nausea Medications ???Medication ???Instructions ???Recorded ???Confirmed ???Type aspirin 81 mg tablet,delayed 81 mg PO DAILY heart health 06/05/24 History release nitroglycerin 0.4 mg sublingual 0.4 mg sublingual Q5-15M PRN chest 05/26/21 06/05/24 Rx tablet pain #90 tabs duloxetine 60 mg capsule,delayed 60 mg PO DAILY mental health 08/2006/05/24 History release furosemide 40 mg tablet 40 mg PO DAILY diuretic #90 TABLET S 08/02/23 06/05/24 Rx isosorbide mononitrate 60 mg 60 mg PO BID heart #180 TABLETS 06/05/24 Rx tablet,extended release 24 hr allopurinol 300 mg tablet 300 mg PO BID gout 11/05/23 History cilostazol 100 mg tablet 100 mg PO BID anti platelet 06/05/24 History metoprolol tartrate 50 mg tablet 50 mg PO BID blood pressure #180 0 12/13/23 06/05/24 Rx tabs oxycodone-acetaminophen 5 mg-325 1 tab PO TID PRN PRN pain 02/19/24 06/05/24 History mg tablet insulin aspar prot-insulin aspart 70 unit subcut QAM diabetes 03/0906/05/24 History 100 unit/mL (70-30) subcutaneous pen (Novolog Mix 70-30FlexPen U-100) insulin aspar prt-insulin aspart 70 unit subcut QPM diabetes 06/05/24 History 100 unit/mL (70-30) subcutaneous soln (Novolog Mix 70-30 U-100 Insuln) rosuvastatin 10 mg tablet See Rx Instructions .Route 4 06/05/24 Rx .COMPLEX cholesterol #90 TABLETS losartan 25 mg tablet 25 mg PO DAILY #90 tabs 05/15/24 0 06/05/24 Rx tirzepatide 2.5 mg/0.5 mL 2.5 mg subcut QWEEK 06/05/2406/05 History subcutaneous pen injector (May) Ejection fraction %: 60 Have you fallen in the past year?: No PFSH Medical History Palpitations Right rotator cuff tear Trigger finger of both hands Carpal tunnel syndrome on both sides FHx: cholecystectomy History of left heart catheterization (LHC) ( 06/03/21) Essential hypertension Mechanical loosening of prosthetic knee Atherosclerosis of knik coronary artery of knik heart without angina pectoris PAD (peripheral artery disease) HLD (hyperlipidemia) Type II diabetes mellitus Surgical History (Updated 06/05/24 @ 11:25 by Charlie Johnson TECHNICAL MARKETING CONSULTANT, TECHNICAL MARKETING CONSULTANT-C) History of coronary artery bypass graft x 3 ( 02/27/19) History of prosthetic unicompartmental arthroplasty of left knee Family History Mother Heart disease So (more content not included)... Normal [facility] Cardiology Visit Reporton Cardiology Visit Report [facility] [address] [place] [address] OFFICE VISIT Date of Service: 03/09/24 MR#: [id number] Acct: [id number] Name: CHRISTY FRANCIS Rep #: [id number] : 1950 Provider: JOHNATHON olivas Age/Sex: 74/F Location: [facility] [place] Status: Signed HPI HPI History of Present Illness Details: This is a 74-year-old white female who presents today for outpatient cardiovascular follow-up visit. She has a history of underlying CAD status post CABG ([facility]: 02-27-2019: GIRALDO to the LAD, SVG to OM 2, and SVG to RCA/PDA), ischemic mediated cardiomyopathy, hyperlipidemia, hypertension, and peripheral arterial occlusive disease (especially lower extremities for which she follows with Dr. Singh of peripheral vascular surgery). She denies chest, arm, jaw, or neck discomfort. She denies palpitations. She denies bilateral lower extremity edema. She denies claudication. She states shortness of breath with activity such as going up steps. She denies shortness of breath at rest, orthopnea, or PND. She denies chronic cough. She denies significant, sudden weight gain. She denies lightheadedness, dizziness, near- syncope, or syncope. She denies blood in urine, blood in stool, or epistaxis. He denies fever with chills. She denies myalgia. She denies fatigue. Her exercise level has remained stable. Intake Vital Signs 02/19/24 18:05 03/09/24 13:11 Height 5 ft 2 in 5 ft 2 in Weight: 188 lb BMI 34.4 BP 104/66 Blood Pressure Location Lt brachial Position Sitting Respiration 16 Pulse 89 Pulse Source NIBP Intake Visit Reasons: S/P 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 Is patient in pain?: No Allergies cefazolin Allergy (Verified 03/09/24 13:16) Shortness of breath codeine Allergy (Verified 03/09/24 13:16) Shortness of breath morphine Allergy (Verified 03/09/24 13:16) Other naloxone (Naloxone) Allergy (Verified 03/09/24 13:16) Shortness of breath pentazocine Allergy (Verified 03/09/24 13:16) Shortness of breath pentazocine lactate (From Talwin) Allergy (Verified 03/09/24 13:16) Shortness of breath atorvastatin Adverse Reaction (Severe, Verified 03/09/24 13:16) Severe myalgias acetaminophen (From Tylenol) Adverse Reaction (Verified 03/09/24 13:16) Nausea Medications ???Medication ???Instructions ???Recorded ???Confirmed ???Type aspirin 81 mg tablet,delayed 81 mg PO DAILY heart health 12/15/13 03/09/24 History release nitroglycerin 0.4 mg sublingual 0.4 mg sublingual Q5-15M PRN chest 05/26/21 03/09/24 Rx tablet pain #90 tabs duloxetine 60 mg capsule,delayed 60 mg PO DAILY mental health 08/20/22 03/09/24 History release rosuvastatin 10 mg tablet See Rx Instructions .Route 04/06/23 03/09/24 Rx .COMPLEX cholesterol #90 TABLETS furosemide 40 mg tablet 40 mg PO DAILY diuretic #90 TABLETS 08/02/23 03/09/24 Rx isosorbide mononitrate 60 mg 60 mg PO BID heart #180 TABLETS 09/22/23 03/09/24 Rx tablet,extended release 24 hr allopurinol 300 mg tablet 300 mg PO BID gout 11/05/23 03/09/24 History cilostazol 100 mg tablet 100 mg PO BID anti platelet 11/05/23 03/09/24 History metoprolol tartrate 50 mg tablet 50 mg PO BID blood pressure #180 12/13/23 03/09/24 Rx tabs oxycodone-acetaminophen 5 mg-325 1 tab PO TID PRN PRN pain 02/19/24 03/09/24 History mg tablet losartan 25 mg tablet 25 mg PO DAILY #90 tabs 02/21/24 03/09/24 Rx insulin aspar prot-insulin aspart 70 unit subcut QAM diabetes 03/09/24 03/09/24 History 100 unit/mL (70-30) subcutaneous pen (Novolog Mix 70-30FlexPen U-100) insulin aspar prt-insulin aspart 70 unit subcut QPM diabetes 03/09/24 03/09/24 History 100 unit/mL (70-30) subcutaneous soln (Novolog Mix 70-30 U-100 Insuln) Ejection fraction %: 60 Have you fallen in the past year?: No PFSH Medical History Palpitations Right rotator cuff tear Trigger finger of both hands Carpal tunnel syndrome on both sides FHx: cholecystectomy History of left heart catheterization (LHC) ( 06/03/21) Essential hypertension Mechanical loosening of prosthetic knee Atherosclerosis of knik coronary artery of knik heart without angina pectoris PAD (peripheral artery disease) HLD (hyperlipidemia) Type II diabetes mellitus Surgical History History of coronary artery bypass graft x 3 ( 02/27/19) History of prosthetic unicompartmental arthroplasty of left knee Status post left heart catheterization (LHC) ( 02/22/19) Family History Mother Heart disease Social History (Updated 03/09/24 @ 13:23 by Minoo Ramos) Smoking Status: Light Smoker (<10/day) alcohol intake: current alcohol intake frequency: holidays/ (more content not included)... Normal [facility] Basic Metabolic Profile (BMP )on 02-23-2024 BUN Normal 7-18 [facility] Comment on above: Result Comment: Canc elled via OM: Order cancelled - Patient discharged Performed By: #### L 500.4050 #### [facility] [address] [place], [address] BUN/CRE Normal 10-20 [facility] Comment on above: Result Comment: Canc elled via OM: Order cancelled - Patient discharged Performed By: #### L 500.4050 #### [facility] [address] [place], [address] CA,Total Normal 8.5-10.1 [facility] Comment on above: Result Comment: Canc elled via OM: Order cancelled - Patient discharged Performed By: #### L 500.4050 #### [facility] [address] [place], [address] CL Normal 98-107 [facility] Comment on above: Result Comment: Canc elled via OM: Order cancelled - Patient discharged Performed By: #### L 500.4050 #### [facility] [address] [place], [address] CO2 Normal 21.0-32.0 [facility] Comment on above: Result Comment: Canc elled via OM: Order cancelled - Patient discharged Performed By: #### L 500.4050 #### [facility] [address] [place], [address] CREAT,SERUM Normal 0.55-1.02 [facility] Comment on above: Result Comment: Canc elled via OM: Order cancelled - Patient discharged Performed By: #### L 500.4050 #### [facility] [address] [place], [address] EST GFR Normal >60 [facility] Comment on above: Result Comment: Canc elled via OM: Order cancelled - Patient discharged Performed By: #### L 500.4050 #### [facility] [address] [place], [address] EST GFR - AA Normal >60 [facility] Comment on above: Result Comment: Canc elled via OM: Order cancelled - Patient discharged Performed By: #### L 500.4050 #### [facility] [address] [place], [address] GAP Normal 5-15 [facility] Comment on above: Result Comment: Canc elled via OM: Order cancelled - Patient discharged Performed By: #### L 500.4050 #### [facility] [address] [place], [address] GLU Normal 74-106 [facility] Comment on above: Result Comment: Canc elled via OM: Order cancelled - Patient discharged Performed By: #### L 500.4050 #### [facility] [address] [place], [address] Potassium Normal 3.5-5.1 [facility] Comment on above: Result Comment: Canc elled via OM: Order cancelled - Patient discharged Performed By: #### L 500.4050 #### [facility] [address] [place], [address] Basic Metabolic Profile (BMP) Normal 136-145 [facility] Comment on above: Result Comment: Canc elled via OM: Order cancelled - Patient discharged Performed By: #### L 500.4050 #### [facility] [address] [place], [address] CBC W/Diff, Automatedon 11-0 -2023 Absolute Neut Normal 2.0-7.7 [facility] Comment on above: Result Comment: Canc elled via OM: Order cancelled - Patient discharged Performed By: #### L 500.4050 #### [facility] [address] [place], [address] HCT Normal 37-47 [facility] Comment on above: Result Comment: Canc elled via OM: Order cancelled - Patient discharged Performed By: #### L 500.4050 #### [facility] [address] [place], [address] HGB Normal 12.0-15.0 [facility] Comment on above: Result Comment: Canc elled via OM: Order cancelled - Patient discharged Performed By: #### L 500.4050 #### [facility] [address] [place], [address] MCH Normal 27.0-32.0 [facility] Comment on above: Result Comment: Canc elled via OM: Order cancelled - Patient discharged Performed By: #### L 500.4050 #### [facility] [address] [place], [address] MCHC Normal 32-36 [facility] Comment on above: Result Comment: Canc elled via OM: Order cancelled - Patient discharged Performed By: #### L 500.4050 #### [facility] [address] [place], [address] MCV Normal 81-99 [facility] Comment on above: Result Comment: Canc elled via OM: Order cancelled - Patient discharged Performed By: #### L 500.4050 #### [facility] [address] [place], [address] NEUT% Normal 47-70 [facility] Comment on above: Result Comment: Canc elled via OM: Order cancelled - Patient discharged Performed By: #### L 500.4050 #### [facility] [address] [place], [address] PLT Normal 150-450 [facility] Comment on above: Result Comment: Canc elled via OM: Order cancelled - Patient discharged Performed By: #### L 500.4050 #### [facility] [address] [place], [address] RBC Normal 4.2-5.4 [facility] Comment on above: Result Comment: Canc elled via OM: Order cancelled - Patient discharged Performed By: #### L 500.4050 #### [facility] [address] [place], [address] RDW CV Normal 11.6-14.6 [facility] Comment on above: Result Comment: Canc elled via OM: Order cancelled - Patient discharged Performed By: #### L 500.4050 #### [facility] [address] [place], [address] RDW SD Normal 35.1-43.9 [facility] Comment on above: Result Comment: Canc elled via OM: Order cancelled - Patient discharged Performed By: #### L 500.4050 #### [facility] [address] [place], [address] WBC Normal 4.4-11.0 [facility] Comment on above: Result Comment: Canc elled via OM: Order cancelled - Patient discharged Performed By: #### L 500.4050 #### [facility] [address] [place], [address] Basic Metabolic Profile (BMP )on 02-22-2024 BUN Normal 7-18 [facility] Comment on above: Result Comment: Canc elled via OM: Order cancelled - Patient discharged Performed By: #### L 500.2500, L100.0100 ####[facility] [address] [place], [address] BUN/CRE Normal 10-20 [facility] Comment on above: Result Comment: Canc elled via OM: Order cancelled - Patient discharged Performed By: #### L 500.2500, L100.0100 ####[facility] [address] [place], [address] CA,Total Normal 8.5-10.1 [facility] Comment on above: Result Comment: Canc elled via OM: Order cancelled - Patient discharged Performed By: #### L 500.2500, L100.0100 ####[facility] [address] [place], [address] CL Normal 98-107 [facility] Comment on above: Result Comment: Canc elled via OM: Order cancelled - Patient discharged Performed By: #### L 500.2500, L100.0100 ####[facility] [address] [place], [address] CO2 Normal 21.0-32.0 [facility] Comment on above: Result Comment: Canc elled via OM: Order cancelled - Patient discharged Performed By: #### L 500.2500, L100.0100 ####[facility] [address] [place], [address] CREAT,SERUM Normal 0.55-1.02 [facility] Comment on above: Result Comment: Canc elled via OM: Order cancelled - Patient discharged Performed By: #### L 500.2500, L100.0100 ####[facility] [address] [place], [address] EST GFR Normal >60 [facility] Comment on above: Result Comment: Canc elled via OM: Order cancelled - Patient discharged Performed By: #### L 500.2500, L100.0100 ####[facility] [address] [place], [address] EST GFR - AA Normal >60 [facility] Comment on above: Result Comment: Canc elled via OM: Order cancelled - Patient discharged Performed By: #### L 500.2500, L100.0100 ####[facility] [address] [place], [address] GAP Normal 5-15 [facility] Comment on above: Result Comment: Canc elled via OM: Order cancelled - Patient discharged Performed By: #### L 500.2500, L100.0100 ####[facility] [address] [place], [address] GLU Normal 74-106 [facility] Comment on above: Result Comment: Canc elled via OM: Order cancelled - Patient discharged Performed By: #### L 500.2500, L100.0100 ####[facility] [address] [place], [address] Potassium Normal 3.5-5.1 [facility] Comment on above: Result Comment: Canc elled via OM: Order cancelled - Patient discharged Performed By: #### L 500.2500, L100.0100 ####[facility] [address] [place], [address] Basic Metabolic Profile (BMP) Normal 136-145 [facility] Comment on above: Result Comment: Canc elled via OM: Order cancelled - Patient discharged Performed By: #### L 500.2500, L100.0100 ####[facility] [address] [place], [address] CBC W/Diff, Automatedon 11-0 -2023 Absolute Neut Normal 2.0-7.7 [facility] Comment on above: Result Comment: Canc elled via OM: Order cancelled - Patient discharged Performed By: #### L 500.2500, L100.0100 ####[facility] [address] [place], [address] HCT Normal 37-47 [facility] Comment on above: Result Comment: Canc elled via OM: Order cancelled - Patient discharged Performed By: #### L 500.2500, L100.0100 ####[facility] [address] [place], [address] HGB Normal 12.0-15.0 [facility] Comment on above: Result Comment: Canc elled via OM: Order cancelled - Patient discharged Performed By: #### L 500.2500, L100.0100 ####[facility] [address] [place], [address] MCH Normal 27.0-32.0 [facility] Comment on above: Result Comment: Canc elled via OM: Order cancelled - Patient discharged Performed By: #### L 500.2500, L100.0100 ####[facility] [address] [place], [address] MCHC Normal 32-36 [facility] Comment on above: Result Comment: Canc elled via OM: Order cancelled - Patient discharged Performed By: #### L 500.2500, L100.0100 ####[facility] [address] [place], [address] MCV Normal 81-99 [facility] Comment on above: Result Comment: Canc elled via OM: Order cancelled - Patient discharged Performed By: #### L 500.2500, L100.0100 ####[facility] [address] [place], [address] NEUT% Normal 47-70 [facility] Comment on above: Result Comment: Canc elled via OM: Order cancelled - Patient discharged Performed By: #### L 500.2500, L100.0100 ####[facility] [address] [place], [address] PLT Normal 150-450 [facility] Comment on above: Result Comment: Canc elled via OM: Order cancelled - Patient discharged Performed By: #### L 500.2500, L100.0100 ####[facility] [address] [place], [address] RBC Normal 4.2-5.4 [facility] Comment on above: Result Comment: Canc elled via OM: Order cancelled - Patient discharged Performed By: #### L 500.2500, L100.0100 ####[facility] [address] [place], [address] RDW CV Normal 11.6-14.6 [facility] Comment on above: Result Comment: Canc elled via OM: Order cancelled - Patient discharged Performed By: #### L 500.2500, L100.0100 ####[facility] [address] [place], [address] RDW SD Normal 35.1-43.9 [facility] Comment on above: Result Comment: Canc elled via OM: Order cancelled - Patient discharged Performed By: #### L 500.2500, L100.0100 ####[facility] [address] [place], [address] WBC Normal 4.4-11.0 [facility] Comment on above: Result Comment: Canc elled via OM: Order cancelled - Patient discharged Performed By: #### L 500.2500, L100.0100 ####[facility] [address] [place], [place], [address] 12 Lead EKGon 02-21-2024 12 Lead EKG [facility] Cardiovascular Services [address] [place] [address] 12 Lead EKG 02/19/242009 MR#: [id number] Acct: [id number] Name: CHRISTY FRANCIS Rep #: [id number] : 1950 74 From: Jos Chandra MD Attending Dr: Dr. Kaushik Castro MD Status: DIS BRIAN Ordering Dr: Grant Castelan DO Date: 02/21/24 Location: [facility] Sex: F C Admitted: 02/19/24 Test Reason : CP Blood Pressure : */* mmHG Vent. Rate : 105 BPM Atrial Rate : 105 BPM P-R Int : 150 ms QRS Dur : 76 ms QT Int : 398 ms P-R-T Axes : 41 9 93 degrees QTcB Int : 526 ms Sinus tachycardia with occasional Premature ventricular complexes Nonspecific T wave abnormality Abnormal ECG When compared with ECG of 19-Feb-2024 14:12, MANUAL COMPARISON REQUIRED DATA IS UNCONFIRMED Confirmed by Jos Chandra ([id number]), editorial director SHILPA VALENZUELA ([id number]) on 02/22/2024 9:27:09 AM Referred By: Confirmed By: Jos Chandra 02/22/24 0927 Date Jos Chandra MD CC: Dr. Kaushik Castro MD; Dr. Grant Castelan DO; Dr. Marielso Perla DO Signed Normal [facility] Basic Metabolic Profile (BMP )on 02-21-2024 BUN/CRE 17.9 RATIO Normal - [facility] Comment on above: Performed By: #### L 501.080 #### [facility] [address] [place], [address] CA,Total 8.9 mg/dL Normal 8.5-10.1 [facility] Comment on above: Performed By: #### L 501.080 #### [facility] [address] [place], [address] Chloride [Moles/Vol] 107 mmol/L Normal 98-107 [facility] Comment on above: Performed By: #### L 501.080 #### [facility] [address] [place], [address] CO2 [Moles/Vol] 25.0 mmol/L Normal 21.0-32.0 [facility] Comment on above: Performed By: #### L 501.080 #### [facility] [address] [place], [address] Creatinine [Mass/Vol] 1.17 mg/dL High 0.55-1.02 [facility] Comment on above: Result Comment: The validity of the calculated GFR GFRAA in patients over 70 years has not been determined. Clinical correlation is essential. Performed By: #### L 501.080 #### [facility] [address] [place], [address] ECRCL 42.98 ml/min Normal [facility] Comment on above: Performed By: #### L 501.080 #### [facility] [address] [place], [address] EST GFR - AA 58 mL/min Low >60 [facility] Comment on above: Result Comment: Afri can [place] GFR Calc Performed By: #### L 501.080 #### [facility] [address] [place], [address] GAP 7 Normal 5-15 [facility] Comment on above: Performed By: #### L 501.080 #### [facility] [address] [place], [address] GFR/1.73 sq M.predicted among non-blacks MDRD (S/P/Bld) [Vol rate/Area] 48 mL/min/{1.73_m2} Low >60 [facility] Comment on above: Result Comment: Non- GFR Calc Performed By: #### L 501.080 #### [facility] [address] [place], [address] Glucose [Mass/Vol] 131 mg/dL High 74-106 [facility] Comment on above: Result Comment: Fast ing Glucose result greater than or equal to 126 mg/dL suggests DIABETES MELLITUS per A.D.A. criteria. Performed By: #### L 501.080 #### [facility] [address] [place], [address] Potassium [Moles/Vol] 3.6 mmol/L Normal 3.5-5.1 [facility] Comment on above: Performed By: #### L 501.080 #### [facility] [address] [place], [address] Sodium [Moles/Vol] 138 mmol/L Normal 136-145 [facility] Comment on above: Performed By: #### L 501.080 #### [facility] [address] [place], [address] Urea nitrogen [Mass/Vol] 21 mg/dL High 7-18 [facility] Comment on above: Performed By: #### L 501.080 #### [facility] [address] [place], [address] Bedside Glucoseon 02-21-2024 FINGERSTICK GLU 204 mg/dL High 74-106 [facility] Comment on above: Result Comment: GENARO DANG OF PATIENT CARE PER NURSING PROTOCOL Performed By: #### L 500.4050 #### [facility] [address] [place], [address] FINGERSTICK GLU 180 mg/dL High 74-106 [facility] Comment on above: Result Comment: GENARO DANG OF PATIENT CARE PER NURSING PROTOCOL Performed By: #### L 501.080 #### [facility] [address] [place], [address] CBC W/Diff, Automatedon 11-0 -2023 Absolute Lymph 1.89 X10 3/uL Normal 0.83-4.51 [facility] Comment on above: Performed By: #### L 500.4050 #### [facility] [address] [place], [address] Absolute Neut 5.7 X10 3/uL Normal 2.0-7.7 [facility] Comment on above: Performed By: #### L 500.4050 #### [facility] [address] [place], [address] Basophils/100 WBC (Bld) 0.7 % Normal 0-1 [facility] Comment on above: Performed By: #### L 500.4050 #### [facility] [address] [place], [address] Eosinophils/100 WBC (Bld) 14.5 % High 0-5 [facility] Comment on above: Performed By: #### L 500.4050 #### [facility] [address] [place], [address] Erythrocyte distribution width (RBC) [Ratio] 15.1 % High 11.6-14.6 [facility] Comment on above: Performed By: #### L 500.4050 #### [facility] [address] [place], [address] Hematocrit (Bld) [Volume fraction] 42.2 % Normal 37-47 [facility] Comment on above: Performed By: #### L 500.4050 #### [facility] [address] [place], [address] Hemoglobin (Bld) [Mass/Vol] 13.8 g/dL Normal 12.0-15.0 [facility] Comment on above: Performed By: #### L 500.4050 #### [facility] [address] [place], [address] IG% 0.300 Normal 0.0-0.9 [facility] Comment on above: Result Comment: IG% - Immature Granulocytes (promyelocytes, myelocytes and metamyelocytes) > 1% indicates that a LEFT SHIFT is Present. Performed By: #### L 500.4050 #### [facility] [address] [place], [address] Lymphocytes/100 WBC (Bld) 18.9 % Low 19-41 [facility] Comment on above: Performed By: #### L 500.4050 #### [facility] [address] [place], [address] MCH (RBC) [Entitic mass] 30.1 pg Normal 27.0-32.0 [facility] Comment on above: Performed By: #### L 500.4050 #### [facility] [address] [place], [address] MCHC (RBC) [Mass/Vol] 32.7 g/dL Normal 32-36 [facility] Comment on above: Performed By: #### L [id number] #### [facility] [address] [place], [address] MCV (RBC) [Entitic vol] 91.9 fL Normal 81-99 [facility] Comment on above: Performed By: #### L [id number] #### [facility] [address] [place], [address] Monocytes/100 WBC (Bld) 8.4 % Normal 0-10 [facility] Comment on above: Performed By: #### L [id number] #### [facility] [address] [place], [address] Neutrophils/100 WBC (Bld) 57.2 % Normal 47-70 [facility] Comment on above: Performed By: #### L [id number] #### [facility] [address] [place], [address] Nucleated RBC (Bld) [#/Vol] 0 10*3/uL Normal 0-5 [facility] Comment on above: Performed By: #### [id number] #### [facility] [address] [place], [address] Platelet mean volume (Bld) [Entitic vol] 11.1 fL Normal 6.2-12.0 [facility] Comment on above: Performed By: #### [id number] #### [facility] [address] [place], [address] Platelets (Bld) [#/Vol] 260 10*3/uL Normal 150-450 [facility] Comment on above: Performed By: #### [id number] #### [facility] [address] [place], [address] RBC (Bld) [#/Vol] 4.59 10*6/uL Normal 4.2-5.4 [facility] Comment on above: Performed By: #### L [id number] #### [facility] [address] [place], [address] RDW SD 50.9 fl High 35.1-43.9 [facility] Comment on above: Performed By: #### L [id number] #### [facility] [address] [place], [address] WBC (Bld) [#/Vol] 10.0 10*3/uL Normal 4.4-11.0 [facility] Comment on above: Performed By: #### L [id number] #### [facility] [address] [place], [address] Magnesiumon 02-21-2024 Magnesium [Mass/Vol] 2.0 mg/dL Normal 1.6-2.6 [facility] Comment on above: Performed By: #### L 501.080 #### [facility] [address] [place], [place], [address] Phosphoruson 02-21-2024 Phosphate [Mass/Vol] 4.4 mg/dL Normal 2.5-4.9 [facility] Comment on above: Performed By: #### L 501.080 #### [facility] [address] [place], [place], [address] Stress Reporton 02-21-2024 Stress Report [facility] Cardiovascular Services [address] [place] [address] MR#: [id number] Acct: [id number] Name: CHRISTY FRANCIS Rep #: [id number] : 1950 74 From: Jorge Anderson MD Primary Care: Dr. Marielos Perla, DO Status: A DM BRIAN Referring Dr: Sex: F C Stress Test Report Pharmacologic myocardial perfusion stress test. 74-year-old lady with a history of chest pain and previous coronary bypass surgery. Resting EKG demonstrates sinus rhythm with a rate of 88 bpm. Resting blood pressure is 122/84 mmHg. 0.4 mg of regadenoson was infused per usual protocol followed by rapid intravenous saline flush injection. Continuous EKG monitoring was performed. The maximum heart rate was 104 bpm which was 71% of max impacted heart rate the maximum workload was 1 metabolic equivalent. At rest there were no ST or T wave changes noted to suggest ischemia and at peak infusion nonspecific ST changes were noted which did not meet the criteria for ischemia. No clinical angina is noted. The final blood pressure was 124/80 mmHg. Myocardial perfusion protocol. 8.0 mCi of technetium 99m sestamibi was injected at rest. 0.4 mg of regadenoson was infused per usual protocol. At peak infusion 26.1 mCi of technetium 99m sestamibi was injected stress images were obtained stress and rest images were reconstructed and compared in the short axis vertical long and horizontal long axis. Gated images were also obtained. Perfusion SPECT analysis: Review of the stress images demonstrate normal uptake of tracer noted in all areas of the myocardium. The resting images similar demonstrated normal uptake of tracer noted in all areas of the myocardium. No areas of reversibility are noted to suggest ischemia and no previous infarct is noted. Gated SPECT analysis: The gated ejection fraction is 68%. Conclusion: Normal pharmacologic myocardial perfusion stress test. Preserved ejection fraction. 02/21/241042 Date Jorge Anderson MD CC: Dr. Kaushik Castro MD; Dr. Grant Castelan DO; Dr. Moris Watson MD; Dr. Marielos Perla DO Date Dictated: 02/21/241041 Date Transcribed: 02/21/241041 Motor Runner: CO Signed Normal [facility] BNP,B-Type NATRIURETIC PEPTI Regino 02-20-2024 Natriuretic peptide B (Bld) [Mass/Vol] 20.3 pg/mL Normal 0-100 [facility] Comment on above: Performed By: #### L 503.6620 #### [facility] [address] [place], [place], [address] Basic Metabolic Profile (BMP )on 02-20-2024 BUN/CRE 16.1 RATIO Normal 10-20 [facility] Comment on above: Performed By: #### L [id number] #### [facility] [address] [place], [place], [address] CA,Total 8.4 mg/dL Low 8.5-10.1 [facility] Comment on above: Performed By: #### L [id number] #### [facility] [address] [place], [place], [address] Chloride [Moles/Vol] 107 mmol/L Normal 98-107 [facility] Comment on above: Performed By: #### L [id number] #### [facility] [address] [place], [address] CO2 [Moles/Vol] 24.0 mmol/L Normal 21.0-32.0 [facility] Comment on above: Performed By: #### L 500.4050 #### [facility] [address] [place], [address] Creatinine [Mass/Vol] 1.37 mg/dL High 0.55-1.02 [facility] Comment on above: Result Comment: The validity of the calculated GFR GFRAA in patients over 70 years has not been determined. Clinical correlation is essential. Performed By: #### L 500.4050 #### [facility] [address] [place], [address] ECRCL 36.71 ml/min Normal [facility] Comment on above: Performed By: #### L 500.4050 #### [facility] [address] [place], [address] EST GFR - AA 49 mL/min Low >60 [facility] Comment on above: Result Comment: Afri can Comoran GFR Calc Performed By: #### L 500.4050 #### [facility] [address] [place], [address] GAP 6 Normal 5-15 [facility] Comment on above: Performed By: #### L [id number] #### [facility] [address] [place], [address] GFR/1.73 sq M.predicted among non-blacks MDRD (S/P/Bld) [Vol rate/Area] 40 mL/min/{1.73_m2} Low >60 [facility] Comment on above: Result Comment: Non- GFR Calc Performed By: #### L 500.4050 #### [facility] [address] [place], [address] Glucose [Mass/Vol] 358 mg/dL High 74-106 [facility] Comment on above: Result Comment: Gluc ose result greater than or equal to 200 mg/dL suggests DIABETES MELLITUS per A.D.A. criteria. Performed By: #### L 500.4050 #### [facility] [address] [place], [address] Potassium [Moles/Vol] 3.9 mmol/L Normal 3.5-5.1 [facility] Comment on above: Performed By: #### L 500.4050 #### [facility] [address] [place], [address] Sodium [Moles/Vol] 136 mmol/L Normal 136-145 [facility] Comment on above: Performed By: #### L [id number] #### [facility] [address] [place], [address] Urea nitrogen [Mass/Vol] 22 mg/dL High 7-18 [facility] Comment on above: Performed By: #### L [id number] #### [facility] [address] [place], [address] Bedside Glucoseon 02-20-2024 FINGERSTICK GLU 129 mg/dL High 74-106 [facility] Comment on above: Result Comment: GENARO GEMENT OF PATIENT CARE PER NURSING PROTOCOL Performed By: #### L 501.080 #### [facility] [address] [place], [address] FINGERSTICK GLU 178 mg/dL High 74-106 [facility] Comment on above: Result Comment: GENARO GEMENT OF PATIENT CARE PER NURSING PROTOCOL Performed By: #### L 501.080 ####[facility] [address] [place], [address] FINGERSTICK GLU 366 mg/dL High 74-106 [facility] Comment on above: Result Comment: GENARO GEMENT OF PATIENT CARE PER NURSING PROTOCOL Performed By: #### L 501.080 #### [facility] [address] [place], [address] FINGERSTICK GLU 391 mg/dL High 74-106 [facility] Comment on above: Result Comment: GENARO DANG OF PATIENT CARE PER NURSING PROTOCOL Performed By: #### L 501.080 ####[facility] [address] [place], [address] Consultation - Cardiologyon 02-20-2024 Consultation - Cardiology [facility] Medical Records Department [address] [place] [address] Consultation - Cardiology 02/20/24 1012 MR#: [id number] Acct: [id number] Name: CHRISTY FRANCIS Rep #: [id number] : 1950 74 From: Jorge Anderson MD PCP: Dr. Marielos Perla, DO Status:ADM BRIAN Location: [place] [address] Assessment Plan Assessment/Plan (1) Exertional dyspnea: PLAN: She does have some exertional dyspnea the etiology is unclear I would recommend that we obtain a pharmacologic myocardial perfusion stress test and depending on the findings further recommendations will be made. I would also recommend that we obtain a natruretic peptide level. The addition of an ROSY inhibitor may not be a bad idea especially as she has diabetes mellitus. (2) Hx of CABG: PLAN: She is status post coronary bypass surgery. She had a cardiac catheterization 2 years ago which demonstrated occlusion of one of her grafts. This will be reevaluated with a myocardial perfusion scan. I will have her evaluated to see whether she is a candidate for the precedent D trial (3) HLD (hyperlipidemia): QUALIFIERS: Hyperlipidemia type: unspecified Qualified Code(s): E78.5 - Hyperlipidemia, unspecified PLAN: She does have a history of hyperlipidemia and she should continue with her aggressive risk factor modification. (4) PAD (peripheral artery disease): PLAN: She does have peripheral vascular disease which does not appear to be worse at this particular time we will continue with the current medical therapy. (5) Essential hypertension: PLAN: Her blood pressure appears to be under fair control we will reevaluate the above and also look for any diastolic dysfunction on her echocardiogram. HPI Consult Data Date of Consult: 02/20/24 HPI Narrative HPI Narrative: CHRISTY FRANCIS, is a 74 F who presents to the emergency room with left shoulder discomfort as well as shortness of breath with activity. She was concerned about this because it had been going on for few days and so presented to the emergency room. In the emergency room she was evaluated EKG was noted to be normal and cardiac enzymes were noted to be normal.. She has a history of underlying CAD status post CABG ([facility]: 02-27-2019: GIRALDO to the LAD, SVG to OM 2, and SVG to RCA/PDA), hyperlipidemia, hypertension, and peripheral arterial occlusive disease (especially lower extremities for which she follows with Dr. Singh of peripheral vascular surgery). She had undergone a cardiac catheterization 2 years ago which demonstrated a patent GIRALDO to the LAD, and occluded saphenous vein graft to the obtuse marginal branch and a patent saphenous vein graft to the right coronary artery. Collateral circulation was also noted. It was felt that cardiology should see during this admission. [facility] Medical History Palpitations Right rotator cuff tear Trigger finger of both hands Carpal tunnel syndrome on both sides FHx: cholecystectomy History of left heart catheterization (LHC) ( 06/03/21) Essential hypertension Mechanical loosening of prosthetic knee Atherosclerosis of knik coronary artery of knik heart without angina pectoris PAD (peripheral artery disease) HLD (hyperlipidemia) Type II diabetes mellitus Home Medications ???Medication ???Instructions ???Recorded ???Last Taken ???Type aspirin 81 mg tablet,delayed 81 mg PO DAILY heart health 12/15/13 06/03/21 History release nitroglycerin 0.4 mg sublingual 0.4 mg sublingual Q5-15M PRN chest 05/26/21 Unknown Rx tablet pain #90 tabs duloxetine 60 mg capsule,delayed 60 mg PO DAILY 08/20/22 Unknown History release glimepiride 4 mg tablet 4 mg PO BID 08/20/22 Unknown History insulin aspar prot-insulin aspart 60 unit subcut QAM 08/20/22 Unknown History 100 unit/mL (70-30) subcutaneous pen (Novolog Mix 70-30FlexPen U-100) insulin aspar prt-insulin aspart 65 unit subcut QPM 08/20/22 Unknown History 100 unit/mL (70-30) subcutaneous soln (Novolog Mix 70-30 U-100 Insuln) rosuvastatin 10 mg tablet See Rx Instructions .Route 04/06/23 Unknown Rx .COMPLEX #90 TABLETS furosemide 40 mg tablet 40 mg PO DAILY #90 TABLETS 08/02/23 Unknown Rx isosorbide mononitrate 60 mg 60 mg PO BID #180 TABLETS 09/22/23 Unknown Rx tablet,extended release 24 hr allopurinol 300 mg tablet 300 mg PO BID 11/05/23 Unknown History cilostazol 100 mg tablet 100 mg PO BID 11/05/23 Unknown History metoprolol tartrate 50 mg tablet 50 mg PO BID This is a dose 12/13/23 Unknown Rx increase #180 tabs oxycodone-acetaminophen 5 mg-325 1 tab PO TID PRN PRN pain 02/19/24 02/03/24 History mg tablet Allergy/AdvReac Type Severity Reaction Status Date / Time cefazolin Allergy Shortness Verified 11/05/23 11:31 of breath codeine Allergy Shortness Verified 11/05/23 11:3 (more content not included)... Normal [facility] Echo Completeon 02-20-2024 Echo Complete [facility] [address] [place] [address] Echo Complete 02/21/24 1022 MR#: [id number] Acct: [id number] Name: CHRISTY FRANCIS Rep #: [id number] : 1950 74 From: Jorge Anderson MD Attending Dr: Dr. Kaushik Castro MD Status: ADM BRIAN Ordering Dr: Jorge Anderson MD Date: 02/20/24 Location: U Sex: F C Admitted: 02/19/24 Reason For Study: DYSPNEA Procedure This was a 2D Doppler, Color Flow transthoracic echocardiogram. Exam performed in department. Left Ventricle Normal LV size. Severe concentric left ventricular hypertrophy. The left ventricular ejection fraction is 60 %. Stage 1 diastolic dysfunction. No regional wall motion abnormalities noted. Right Ventricle Normal RV size. Normal systolic function. Atria Normal left atrium. Normal right atrium. Mitral Valve Normal mitral valve. Tricuspid Valve Normal tricuspid valve. Aortic Valve Trisinus/trileaflet aortic valve. Pulmonic Valve Normal pulmonic valve. Great Vessels Normal aortic root. The pulmonary artery is normal size. Inferior vena cava collapse with respiration. Pericardium/Pleural No pericardial effusion. MMode/2D Measurements Calculations LVIDd: 3.9 cm IVSd: 1.8 cm Ao root diam: 3.2 cm LVIDs: 2.6 cm LVPWd: 1.5 cm FS: 33.1 % LAV(MOD-bp): 28.5 ml LVAd ap4: 19.7 cm2 SV(MOD-sp4): 26.7 ml LAV(MOD-bp) Indexed: 15.3 ml/m2 LVLd ap4: 7.0 cm SI(MOD-sp4): 14.3 ml/m2 LAV(MOD-sp2): 17.0 ml EDV(MOD-sp4): 48.6 ml LAV(MOD-sp4): 30.7 ml EDV(sp4-el): 47.2 ml LVAs ap4: 11.7 cm2 LVLs ap4: 6.0 cm ESV(MOD-sp4): 21.8 ml ESV(sp4-el): 19.5 ml EF(MOD-sp4): 55.1 % EF(sp4-el): 58.7 % SV(sp4-el): 27.7 ml LA A4 area: 13.3 cm2 LA dimension(2D): 3.5 cm RA A4 area: 8.2 cm2 Time Measurements MV dec time: 0.17 sec Doppler Measurements Calculations MV E max butch: 63.8 cm/sec Lat Peak E' Butch: 7.2 cm/sec Med Peak E' Butch: 5.0 cm/sec MV A max butch: 90.3 cm/sec E/E' lat: 8.9 E/E' med: 12.7 MV E/A: 0.71 MV V2 max: 88.5 cm/sec Ao V2 max: 137.7 cm/sec MV max P.1 mmHg MV dec slope: 370.7 cm/sec2 Ao max P.6 mmHg MV V2 mean: 55.5 cm/sec Ao V2 mean: 90.3 cm/sec MV mean P.4 mmHg Ao mean P.8 mmHg MV V2 VTI: 20.2 cm Ao V2 VTI: 22.4 cm AV (velocity ratio): 0.84 LV V1 max: 105.6 cm/sec PA V2 max: 128.2 cm/sec LV V1 max P.5 mmHg PA V2 mean: 82.6 cm/sec LV V1 mean P.1 mmHg LV V1 mean: 66.1 cm/sec LV V1 VTI: 18.9 cm ECHO/Echo Complete Interpretation Summary Normal LV size. Severe concentric left ventricular hypertrophy. The left ventricular ejection fraction is 60 %. Stage 1 diastolic dysfunction. ___ Ordering Physician: Jorge Anderson Referring Physician: MARIELOS PERLA Performed By: Crystal Kaplan RCS 02/21/24 1131 Date Jorge Anderson MD CC: Dr. Jorge Anderson MD; Dr. Kaushik Castro MD; Dr. Marielos Perla, Date Dictated: 02/21/24 1022 Date Transcribed: 02/21/24 1131 Motor Runner: Signed Normal [facility] Hemoglobin A1con 02-20-2024 HbA1c (Bld) [Mass fraction] 9.8 % High 3.8-5.6 [facility] Comment on above: Result Comment: Norm al < 5.7 % Prediabetic 5.7 - 6.4 % Diabetic >or= 6.5 % Please note range changes. Performed By: #### L 500.4050 #### [facility] [address] [facility] [place], [place], [address] Thyroid Stim Hormone (TSH)on 02-20-2024 TSH 0.994 uIU/mL Normal 0.358-3.740 [facility] Comment on above: Performed By: #### L 500.4050 #### [facility] [address] [place], [place], [address] 12 Lead EKGon 02-19-2024 12 Lead EKG [facility] Cardiovascular Services [address] [place] [address] 12 Lead EKG 02/21/24 0552 MR#: [id number] Acct: [id number] Name: CHRISTY FRANCIS Charis Rep #: [id number] : 1950 74 From: Jos Chandra MD Attending Dr: Dr. Kaushik Castro MD Status: DIS BRIAN Ordering Dr: Grant Castelan DO Date: 02/19/24 Location: [facility] Sex: F C Admitted: 02/19/24 Test Reason : AM EKG Blood Pressure : */* mmHG Vent. Rate : 88 BPM Atrial Rate : 88 BPM P-R Int : 152 ms QRS Dur : 80 ms QT Int : 386 ms P-R-T Axes : 65 -1 90 degrees QTcB Int : 467 ms Normal sinus rhythm Nonspecific T wave abnormality Abnormal ECG Confirmed by Jos Chandra ([id number]), editorial director SHILPA VALENZUELA ([id number]) on 02/22/2024 9:25:47 AM Referred By: Confirmed By: Jos Chandra 02/22/24924 Date Jos Chandra MD CC: Dr. Kaushik Castro MD; Dr. Grant Castelan DO; Dr. Marielos Perla DO Signed Normal [facility] 12 Lead EKG [facility] Cardiovascular Services [address] [place] [address] 12 Lead EKG 02/19/24 1412 MR#: [id number] Acct: [id number] Name: CHRISTY FRANCIS Rep #: [id number] : 1950 74 From: Jorge Anderson MD Attending Dr: Dr. Kaushik Castro MD Status: ADM BRIAN Ordering Dr: Moris Watson MD Date: 02/19/24 Location: [facility] Sex: F C Admitted: 02/19/24 Test Reason : CP Blood Pressure : */* mmHG Vent. Rate : 111 BPM Atrial Rate : 111 BPM P-R Int : 142 ms QRS Dur : 74 ms QT Int : 350 ms P-R-T Axes : 50 23 95 degrees QTcB Int : 476 ms Sinus tachycardia Nonspecific ST and T wave abnormality Abnormal ECG Confirmed by MONIAC ROMERO, JORGE ([id number]), editorial director SHILPA VALENZUELA ([id number]) on 02/21/2024 9:44:03 AM Referred By: Confirmed By: JORGE ANDERSON MD 02/21/24 0944 Date Jorge Anderson MD CC: Dr. Kaushik Castro MD; Dr. Moris Watson MD; Dr. Marielos Perla DO Signed Normal [facility] Basic Metabolic Profile (BMP )on 02-19-2024 BUN/CRE 11.9 RATIO Normal 10-20 [facility] Comment on above: Order Comment: 1Y Performed By: #### L 501.080 #### [facility] [address] [place], [address] CA,Total 9.2 mg/dL Normal 8.5-10.1 [facility] Comment on above: Order Comment: 1Y Performed By: #### L 501.080 #### [facility] [address] [place], [address] Chloride [Moles/Vol] 104 mmol/L Normal 98-107 [facility] Comment on above: Order Comment: 1Y Performed By: #### L 501.080 #### [facility] [address] [place], [address] CO2 [Moles/Vol] 28.0 mmol/L Normal 21.0-32.0 [facility] Comment on above: Order Comment: 1Y Performed By: #### L 501.080 #### [facility] [address] [place], [address] Creatinine [Mass/Vol] 1.60 mg/dL High 0.55-1.02 [facility] Comment on above: Order Comment: 1Y Result Comment: The validity of the calculated GFR GFRAA in patients over 70 years has not been determined. Clinical correlation is essential. Performed By: #### L 501.080 #### [facility] [address] [place], [address] ECRCL 31.34 ml/min Normal [facility] Comment on above: Order Comment: 1Y Performed By: #### L 501.080 #### [facility] [address] [place], [address] EST GFR - AA 41 mL/min Low >60 [facility] Comment on above: Order Comment: 1Y Result Comment: Afri can [place]an GFR Calc Performed By: #### L 501.080 #### [facility] [address] [place], [address] GAP 7 Normal 5-15 [facility] Comment on above: Order Comment: 1Y Performed By: #### L 501.080 #### [facility] [address] [place], [address] GFR/1.73 sq M.predicted among non-blacks MDRD (S/P/Bld) [Vol rate/Area] 34 mL/min/{1.73_m2} Low >60 [facility] Comment on above: Order Comment: 1Y Result Comment: Non- GFR Calc Performed By: #### L 501.080 #### [facility] [address] [place], [address] Glucose [Mass/Vol] 203 mg/dL High 74-106 [facility] Comment on above: Order Comment: 1Y Result Comment: Gluc ose result greater than or equal to 200 mg/dL suggests DIABETES MELLITUS per A.D.A. criteria. Performed By: #### L 501.080 #### [facility] [address] [place], [address] Potassium [Moles/Vol] 3.8 mmol/L Normal 3.5-5.1 [facility] Comment on above: Order Comment: 1Y Performed By: #### L 501.080 #### [facility] [address] [place], [address] Sodium [Moles/Vol] 139 mmol/L Normal 136-145 [facility] Comment on above: Order Comment: 1Y Performed By: #### L 501.080 #### [facility] [address] [place], [address] Urea nitrogen [Mass/Vol] 19 mg/dL High 7-18 [facility] Comment on above: Order Comment: 1Y Performed By: #### L 501.080 #### [facility] [address] [place], [address] Bedside Glucoseon 02-19-2024 FINGERSTICK GLU 309 mg/dL High 74-106 [facility] Comment on above: Result Comment: GENARO DANG OF PATIENT CARE PER NURSING PROTOCOL Performed By: #### L 500.4050 #### [facility] [address] [place], [address] CBC W/Diff, Automatedon 11- Absolute Lymph 1.79 X10 3/uL Normal 0.83-4.51 [facility] Comment on above: Performed By: #### L 501.080 #### [facility] [address] [place], [address] Absolute Neut 7.8 X10 3/uL High 2.0-7.7 [facility] Comment on above: Performed By: #### L 501.080 #### [facility] [address] [place], [address] Basophils/100 WBC (Bld) 0.6 % Normal 0-1 [facility] Comment on above: Performed By: #### L 501.080 #### [facility] [address] [place], [address] Eosinophils/100 WBC (Bld) 7.8 % High 0-5 [facility] [facility] Comment on above: Performed By: #### L 501.080 #### [facility] [address] [place], [address] Erythrocyte distribution width (RBC) [Ratio] 15.4 % High 11.6-14.6 [facility] Comment on above: Performed By: #### L 501.080 #### [facility] [address] [place], [address] Hematocrit (Bld) [Volume fraction] 44.1 % Normal 37-47 [facility] Comment on above: Performed By: #### L 501.080 #### [facility] [address] [place], [address] Hemoglobin (Bld) [Mass/Vol] 14.8 g/dL Normal 12.0-15.0 [facility] Comment on above: Performed By: #### L 501.080 #### [facility] [address] [place], [address] IG% 0.400 Normal 0.0-0.9 [facility] Comment on above: Result Comment: IG% - Immature Granulocytes (promyelocytes, myelocytes and metamyelocytes) > 1% indicates that a LEFT SHIFT is Present. Performed By: #### L 501.080 #### [facility] [address] [place], [address] Lymphocytes/100 WBC (Bld) 15.8 % Low 19-41 [facility] Comment on above: Performed By: #### L 501.080 #### [facility] [address] [place], [address] MCH (RBC) [Entitic mass] 30.6 pg Normal 27.0-32.0 [facility] Comment on above: Performed By: #### L 501.080 #### [facility] [address] [place], [address] MCHC (RBC) [Mass/Vol] 33.6 g/dL Normal 32-36 [facility] Comment on above: Performed By: #### L 501.080 #### [facility] [address] [place], [address] MCV (RBC) [Entitic vol] 91.3 fL Normal 81-99 [facility] Comment on above: Performed By: #### L 501.080 #### [facility] [address] [place], [address] Monocytes/100 WBC (Bld) 6.8 % Normal 0-10 [facility] Comment on above: Performed By: #### L 501.080 #### [facility] [address] [place], [address] Neutrophils/100 WBC (Bld) 68.6 % Normal 47-70 [facility] Comment on above: Performed By: #### L 501.080 #### [facility] [address] [place], [address] Nucleated RBC (Bld) [#/Vol] 0 10*3/uL Normal 0-5 [facility] Comment on above: Performed By: #### L 501.080 #### [facility] [address] [place], [address] Platelet mean volume (Bld) [Entitic vol] 11.0 fL Normal 6.2-12.0 [facility] Comment on above: Performed By: #### L 501.080 #### [facility] [address] [place], [address] Platelets (Bld) [#/Vol] 276 10*3/uL Normal 150-450 [facility] Comment on above: Performed By: #### L 501.080 #### [facility] [address] [place], [address] RBC (Bld) [#/Vol] 4.83 10*6/uL Normal 4.2-5.4 [facility] Comment on above: Performed By: #### L 501.080 #### [facility] [address] [place], [address] RDW SD 51.3 fl High 35.1-43.9 [facility] Comment on above: Performed By: #### L 501.080 #### [facility] [address] [place], [address] WBC (Bld) [#/Vol] 11.3 10*3/uL High 4.4-11.0 [facility] Comment on above: Performed By: #### L 501.080 #### [facility] [address] [place], [address] CTA Chest W/WO Contraston CTA Chest W/WO Contrast [facility] Imaging Services [address] [place] [address] CTA Chest W/WO Contrast MR#: [id number] Acct: [id number] Name: CHRISTY FRANCIS Rep #: [id number] : 1950 F 74 From: Stoney Gatica MD PCP: Dr. Marielos Perla DO Status: ADM BRIAN Study: CTA Chest W/WO Contrast Date of Exam: 02/19/24 Exam# [id number] Ordering Dr: Grant Castelan DO [id number] STUDY: CTA CHEST REASON FOR EXAM: Female, 74 years old. Chest Pain RADIATION DOSAGE (If Supplied By Facility): CTDIvol = ( 13.80 ) mGy, DLP = ( 503.00 ) mGycm TECHNIQUE: The examination was performed with the intravenous administration of 100mL Isovue-370. Post-processing of the angiographic images was performed, with multiplanar reformation and 3D reconstruction. Individualized dose optimization techniques were used for this CT. COMPARISON: None. FINDINGS: Normal enhancement of the main pulmonary artery and right and left pulmonary arteries. Normal enhancement of the bilateral peripheral pulmonary arteries. There is no demonstrated pulmonary embolism. Normal thoracic aorta and visualized great vessels. There is no demonstrated aortic dissection. Normal heart and pericardium. CABG. Normal mediastinum. Normal hilar regions. There are no pulmonary infiltrates. There are no pleural effusions. Multinodular goiter. No acute or aggressive abnormality. No acute findings in the upper abdomen. CT/CTA Chest W/WO Contrast IMPRESSION: Normal CTA chest examination, without a demonstrated pulmonary embolism or arterial dissection. No acute pulmonary findings. Multinodular goiter. If not previously evaluated, consider routine follow-up thyroid ultrasound. Electronically Signed: Stoney Gatica MD at 22:28 EDT Reading Location ID and State: [facility] [place] Tel , Service support , CC: Dr. Grant Castelan DO; Dr. Marielos Perla DO Motor Runner: Signed Normal [facility] Chest 1 View (Portable)on Chest 1 View (Portable) [facility] Imaging Services [address] [place] [address] Chest 1 View (Portable) MR#: [id number] Acct: [id number] Name: CHRISTY FRANCIS Rep #: [id number] : 1950 F 74 From: Cirilo Ybarra MD PCP: Dr. Marielos Perla DO Status: PRE ER Study: Chest 1 View (Portable) Date of Exam: 02/19/24 Exam# [id number] Ordering Dr: Moris Watson MD [id number] EXAM: XR CHEST, 1 VIEW CLINICAL INDICATION: chest pain TECHNIQUE: Frontal view of the chest. COMPARISON: XR Chest dated 05/27/2021 FINDINGS: LUNGS AND PLEURAL SPACES: Normal. No consolidation or edema. No pneumothorax. No effusion. HEART: Surgical changes of coronary artery bypass graft (CABG). Normal heart size. MEDIASTINUM: No mediastinal or hilar mass. BONES/JOINTS: No acute abnormality. RAD/Chest 1 View (Portable) IMPRESSION: No acute cardiopulmonary abnormality. No interval change. Electronically Signed: Cirilo Ybarra MD at 15:14 EDT , CC: Dr. Moris Watson MD; Dr. Marielos Perla DO Motor Runner: Signed Normal [facility] D-Dimer Quantitative (DVT/PE )on 02-19-2024 D-DIMER QUANT 1.08 FEU/ug/m Invalid Interpretation Code 0.27-0.49 [facility] Comment on above: Result Comment: D-Di concepción ELEVATED (>0.49): Additional studies and clinical assessments are indicated to conclude diagnosis of: Deep Vein Thrombosis (DVT) or Pulmonary Embolism (PE) CRITICAL VALUE CALLED TO PILY 02/19/24 1809 Michelle Tovar. RESULTS READ BACK BY SAME. Performed By: #### L 500.4050 #### [facility] [address] [facility] [place], [address] Emergency Department Summary on 02-19-2024 Emergency Department Summary [facility] Medical Records Department [address] [place] [address] Emergency Department Summary 02/19/24 MR#: [id number] Acct: [id number] Name: CHRISTY FRANCIS Rep #: [id number] : 1950 74 From: Moris Watson MD PCP: Dr. Marielos Perla DO Status:REG ER Location: ED HPI History of Present Illness Chief Complaint: Chest Pain Informant: patient Onset/Context/Timing Onset: Today, Yesterday and Hours Activity at onset: gradual Timing: Continuous Quality: Positive for Aching and Heaviness Location: Left Chest Current Severity: Mild Maximum Severity: Mild Worsened By: Exertion Relieved By: Nothing Associated Symptoms: Positive for Nausea and Dyspnea Narrative Narrative: 74-year-old female history of CAD, PAD, diabetes and prior triple bypass in 2019 5 years ago. States she has had chest discomfort since yesterday. Left side of her chest radiates to her left arm feels like a heaviness. Associated shortness of breath. No history of DVT or PE risk factors. She is having exertional dyspnea. Denies any leg swelling or hemoptysis. Prior Similar Symptoms: No Recent Illness/Hospitalization: No CVD Risk Factors: Positive for Diabetes PE Risk Factors: Negative for Recent Travel/Surgery, Recent Immobilization, Prior DVT or PE, Cancer or OCP + Smoking + >/=35 TAD Risk Factors: Positive for Marfan's Syndrome PFSH PFS Medical History Palpitations Right rotator cuff tear Trigger finger of both hands Carpal tunnel syndrome on both sides FHx: cholecystectomy History of left heart catheterization (LHC) ( 06/03/21) Essential hypertension Mechanical loosening of prosthetic knee Atherosclerosis of knik coronary artery of knik heart without angina pectoris PAD (peripheral artery disease) HLD (hyperlipidemia) Type II diabetes mellitus Home Medications ???Medication ???Instructions ???Recorded ???Last Taken ???Type aspirin 81 mg tablet,delayed 81 mg PO DAILY heart health 12/15/13 06/03/21 History release nitroglycerin 0.4 mg sublingual 0.4 mg sublingual Q5-15M PRN chest 05/26/21 Unknown Rx tablet pain #90 tabs oxycodone-acetaminophen 5 mg-325 1 tab PO Q8H PRN pain 3 days #9 03/29/22 Unknown Rx mg tablet (Percocet) tabs duloxetine 60 mg capsule,delayed 60 mg PO DAILY 08/20/22 Unknown History release glimepiride 4 mg tablet 4 mg PO BID 08/20/22 Unknown History insulin aspar prot-insulin aspart 60 unit subcut QAM 08/20/22 Unknown History 100 unit/mL (70-30) subcutaneous pen (Novolog Mix 70-30FlexPen U-100) insulin aspar prt-insulin aspart 65 unit subcut QPM 08/20/22 Unknown History 100 unit/mL (70-30) subcutaneous soln (Novolog Mix 70-30 U-100 Insuln) rosuvastatin 10 mg tablet See Rx Instructions .Route 04/06/23 Unknown Rx .COMPLEX #90 TABLETS furosemide 40 mg tablet 40 mg PO DAILY #90 TABLETS 08/02/23 Unknown Rx isosorbide mononitrate 60 mg 60 mg PO BID #180 TABLETS 09/22/23 Unknown Rx tablet,extended release 24 hr allopurinol 300 mg tablet 300 mg PO BID 11/05/23 Unknown History cilostazol 100 mg tablet 100 mg PO BID 11/05/23 Unknown History metoprolol tartrate 50 mg tablet 50 mg PO BID This is a dose 12/13/23 Unknown Rx increase #180 tabs Allergy/AdvReac Type Severity Reaction Status Date / Time cefazolin Allergy Shortness Verified 11/05/23 11:31 of breath codeine Allergy Shortness Verified 11/05/23 11:31 of breath morphine Allergy Other Verified 11/05/23 11:31 naloxone (Naloxone) Allergy Shortness Verified 11/05/23 11:31 of breath pentazocine Allergy Shortness Verified 11/05/23 11:31 of breath pentazocine lactate (From Allergy Shortness Verified 11/05/23 11:31 Talwin) of breath atorvastatin AdvReac Severe Severe Verified 11/05/23 11:31 myalgias acetaminophen (From Tylenol) AdvReac Nausea Verified 11/05/23 11:31 Family History Mother Heart disease Surgical History History of coronary artery bypass graft x 3 ( 02/27/19) History of prosthetic unicompartmental arthroplasty of left knee Status post left heart catheterization (LHC) ( 02/22/19) Social History Smoking Status: Former smoker how long ago did patient quit smokin years ago alcohol intake: current alcohol intake frequency: holidays/special occasions only substance use type: does not use caffeine: Yes Type: coffee Number of servings: 2 ROS ROS ED ROS Narrative Chest pain. Exertional dyspnea. Constitutional Constitutional ED: Denies chills or fever(s) Eyes Eyes: Reports none ENT ENT ED: Denies ear pain Cardiovascular Cardiovascular: Reports as per HPI and chest (more content not included)... Normal [facility] H AND P Exam - Hospitaliston 02-19-2024 H&P Exam - Hospitalist [facility] Medical Records Department [address] [place] [address] H P Exam - Hospitalist 02/19/24 1732 MR#: [id number] Acct: [id number] Name: CHRISTY FRANCIS Rep #: [id number] : 1950 74 From: Grant Castelan DO PCP: Dr. Marielos Perla DO Status:ADM BRIAN Location: [place] [address] HPI - General General Date of Service: 02/19/24 Chief Complaint: chest pain HPI Narrative CHRISTY FRANCIS, is a 74 F with history of coronary artery disease and peripheral arterial disease who presents with 2-day history of chest pain as left-sided, radiating to her left arm as well as exertional chest pain. Was rather mild yesterday but increased intensity today. Symptoms nahed when she stops. Patient's [id number] is in the room and states the patient has been short of breath for quite some time. Patient does have a history of a CABG but was not having chest pain at that time just dyspnea. So she presented to the emergency room and her workup here in the hospital was unremarkable, however, patient's story is very concerning for this being cardiac in the hospital service was contacted. [facility] Medical History Palpitations Right rotator cuff tear Trigger finger of both hands Carpal tunnel syndrome on both sides FHx: cholecystectomy History of left heart catheterization (LHC) ( 06/03/21) Essential hypertension Mechanical loosening of prosthetic knee Atherosclerosis of knik coronary artery of knik heart without angina pectoris PAD (peripheral artery disease) HLD (hyperlipidemia) Type II diabetes mellitus Home Medications ???Medication ???Instructions ???Recorded ???Last Taken ???Type aspirin 81 mg tablet,delayed 81 mg PO DAILY heart health 12/15/13 06/03/21 History release nitroglycerin 0.4 mg sublingual 0.4 mg sublingual Q5-15M PRN chest 05/26/21 Unknown Rx tablet pain #90 tabs oxycodone-acetaminophen 5 mg-325 1 tab PO Q8H PRN pain 3 days #9 03/29/22 Unknown Rx mg tablet (Percocet) tabs duloxetine 60 mg capsule,delayed 60 mg PO DAILY 08/20/22 Unknown History release glimepiride 4 mg tablet 4 mg PO BID 08/20/22 Unknown History insulin aspar prot-insulin aspart 60 unit subcut QAM 08/20/22 Unknown History 100 unit/mL (70-30) subcutaneous pen (Novolog Mix 70-30FlexPen U-100) insulin aspar prt-insulin aspart 65 unit subcut QPM 08/20/22 Unknown History 100 unit/mL (70-30) subcutaneous soln (Novolog Mix 70-30 U-100 Insuln) rosuvastatin 10 mg tablet See Rx Instructions .Route 04/06/23 Unknown Rx .COMPLEX #90 TABLETS furosemide 40 mg tablet 40 mg PO DAILY #90 TABLETS 08/02/23 Unknown Rx isosorbide mononitrate 60 mg 60 mg PO BID #180 TABLETS 09/22/23 Unknown Rx tablet,extended release 24 hr allopurinol 300 mg tablet 300 mg PO BID 11/05/23 Unknown History cilostazol 100 mg tablet 100 mg PO BID 11/05/23 Unknown History metoprolol tartrate 50 mg tablet 50 mg PO BID This is a dose 12/13/23 Unknown Rx increase #180 tabs Allergy/AdvReac Type Severity Reaction Status Date / Time cefazolin Allergy Shortness Verified 11/05/23 11:31 of breath codeine Allergy Shortness Verified 11/05/23 11:31 of breath morphine Allergy Other Verified 11/05/23 11:31 naloxone (Naloxone) Allergy Shortness Verified 11/05/23 11:31 of breath pentazocine Allergy Shortness Verified 11/05/23 11:31 of breath pentazocine lactate (From Allergy Shortness Verified 11/05/23 11:31 Flakita) of breath atorvastatin AdvReac Severe Severe Verified 11/05/23 11:31 myalgias acetaminophen (From Tylenol) AdvReac Nausea Verified 11/05/23 11:31 Family History Mother Heart disease Surgical History History of coronary artery bypass graft x 3 ( 02/27/19) History of prosthetic unicompartmental arthroplasty of left knee Status post left heart catheterization (LHC) ( 02/22/19) Social History Smoking Status: Former smoker how long ago did patient quit smokin years ago alcohol intake: current alcohol intake frequency: holidays/special occasions only substance use type: does not use caffeine: Yes Type: coffee Number of servings: 2 ROS RANJITH Garcia States that she did have some nausea and has been diaphoretic with these episodes. All review of systems were negative except as mentioned above in the history of present illness and the other review of systems. Vital Signs Vital Signs Vital Signs: 02/19/24 14:07 02/19/24 14:17 02/19/24 15:08 Temperature 36.8 C Temperature Source Oral Pulse Rate 106 H 97 Respiratory Rate 18 19 H Blood Pressure 129/54 H Blood Pressure Mean 79 Pulse O (more content not included)... Normal [facility] L501.4020on 02-19-2024 TROPONIN-I HS 19 pg/mL Normal 3.0-54.0 [facility] Comment on above: Order Comment: Comme nts: SPECIMEN #3'TROP' Serial specimen #1, #2 or #3: 3 Result Comment: Dajuan sood Note: New Test Units and Gender Specific Reference Ranges. For more information see Policy Stat Procedure [place] High Sensitivity Troponin (TNIH) and attachments. Performed By: #### L 501.080 #### [facility] [address] [facility]. [place], [place], [address] TROPONIN-I HS 20 pg/mL Normal 3.0-54.0 [facility] Comment on above: Result Comment: Plerina sood Note: New Test Units and Gender Specific Reference Ranges. For more information see Policy Stat Procedure [place] High Sensitivity Troponin (TNIH) and attachments. Performed By: #### L 501.080 #### [facility] [address] [facility] [place], [address] L501.5425on 02-19-2024 TROPONIN-I HS 19 pg/mL Normal 3.0-54.0 [facility] Comment on above: Order Comment: 1Y Result Comment: Plerina se Note: New Test Units and Gender Specific Reference Ranges. For more information see Policy Stat Procedure [place] High Sensitivity Troponin (TNIH) and attachments. Performed By: #### L 501.080 #### [facility] [address] [place], [address] Prothrombin Time w/INRon INR Coag (PPP) [Relative time] 1.1 {INR} Normal [facility] Comment on above: Performed By: #### L 501.080 #### [facility] [address] [place], [address] PT Coag (PPP) [Time] 14.0 s Normal 11.7-14.9 [facility] Comment on above: Performed By: #### L 501.080 #### [facility] [address] [place], [address] CBC W/Diff, Automatedon 01-17 Absolute Lymph 1.72 X10 3/uL Normal 0.83-4.51 [facility] Comment on above: Performed By: #### L 503.6620 #### [facility] [address] [place], [address] Absolute Neut 5.0 X10 3/uL Normal 2.0-7.7 [facility] Comment on above: Performed By: #### L 503.6620 #### [facility] [address] [place], [address] Basophils/100 WBC (Bld) 0.6 % Normal 0-1 [facility] Comment on above: Performed By: #### L 503.6620 #### [facility] [address] [place], [address] Eosinophils/100 WBC (Bld) 12.8 % High 0-5 [facility] Comment on above: Performed By: #### L 503.6620 #### [facility] [address] [place], [address] Erythrocyte distribution width (RBC) [Ratio] 15.8 % High 11.6-14.6 [facility] Comment on above: Performed By: #### L 503.6620 #### [facility] [address] [place], [address] Hematocrit (Bld) [Volume fraction] 43.8 % Normal 37-47 [facility] Comment on above: Performed By: #### L 503.6620 #### [facility] [address] [place], [address] Hemoglobin (Bld) [Mass/Vol] 13.8 g/dL Normal 12.0-15.0 [facility] Comment on above: Performed By: #### L 503.6620 #### [facility] [address] [place], [address] IG% 0.500 Normal 0.0-0.9 [facility] Comment on above: Result Comment: IG% - Immature Granulocytes (promyelocytes, myelocytes and metamyelocytes) > 1% indicates that a LEFT SHIFT is Present. Performed By: #### L 503.20 #### [facility] [address] [place], [address] Lymphocytes/100 WBC (Bld) 20.3 % Normal 19-41 [facility] Comment on above: Performed By: #### L 503.20 #### [facility] [address] [place], [address] MCH (RBC) [Entitic mass] 29.7 pg Normal 27.0-32.0 [facility] Comment on above: Performed By: #### L 503.6620 #### [facility] [address] [place], [address] MCHC (RBC) [Mass/Vol] 31.5 g/dL Low 32-36 [facility] Comment on above: Performed By: #### L 503.6620 #### [facility] [address] [place], [address] MCV (RBC) [Entitic vol] 94.4 fL Normal 81-99 [facility] Comment on above: Performed By: #### L 503 #### [facility] [address] [place], [address] Monocytes/100 WBC (Bld) 7.1 % Normal 0-10 [facility] Comment on above: Performed By: #### L 503.6619 #### [facility] [address] [place], [address] Neutrophils/100 WBC (Bld) 58.7 % Normal 47-70 [facility] Comment on above: Performed By: #### L 503 #### [facility] [address] [place], [address] Nucleated RBC (Bld) [#/Vol] 0 10*3/uL Normal 0-5 [facility] Comment on above: Performed By: #### L 503 #### [facility] [address] [place], [address] Platelet mean volume (Bld) [Entitic vol] 11.1 fL Normal 6.2-12.0 [facility] Comment on above: Performed By: #### L 50320 #### [facility] [address] [place], [address] Platelets (Bld) [#/Vol] 296 10*3/uL Normal 150-450 [facility] Comment on above: Performed By: #### L 503.20 #### [facility] [address] [place], [address] RBC (Bld) [#/Vol] 4.64 10*6/uL Normal 4.2-5.4 [facility] Comment on above: Performed By: #### L 503 #### [facility] [address] [place], [address] RDW SD 54.3 fl High 35.1-43.9 [facility] Comment on above: Performed By: #### L 503.6620 #### [facility] [address] [place], [address] WBC (Bld) [#/Vol] 8.5 10*3/uL Normal 4.4-11.0 [facility] Comment on above: Performed By: #### L 503.20 #### [facility] [address] [place], [address] Comprehensive Metabolic Prof ilon 01-27-2024 Albumin [Mass/Vol] 3.2 g/dL Normal 3.2-5.0 [facility] Comment on above: Performed By: #### L 503.20 #### [facility] [address] [place], [address] Albumin/Globulin [Mass ratio] 0.8 {ratio} Low 0.9-2.4 [facility] Comment on above: Performed By: #### L 503.20 #### [facility] [address] [place], [address] ALK P 84 U/L Normal 45-117 [facility] Comment on above: Performed By: #### L 503.20 #### [facility] [address] [place], [address] ALT [Catalytic activity/Vol] 18 U/L Normal 13-56 [facility] Comment on above: Performed By: #### L 503.20 #### [facility] [address] [place], [address] AST [Catalytic activity/Vol] 20 U/L Normal 15-37 [facility] Comment on above: Performed By: #### L 503.20 #### [facility] [address] [place], [address] Bilirubin [Mass/Vol] 0.30 mg/dL Normal 0.20-1.00 [facility] Comment on above: Result Comment: For patients on eltrombopag therapy, use of Dimension [place] TBIL is not recommended. Performed By: #### L 503.20 #### [facility] [address] [place], [address] BUN/CRE 23.6 RATIO High 10-20 [facility] Comment on above: Performed By: #### L 456.20 #### [facility] Laboratory [address] [place], [address] CA,Total 9.3 mg/dL Normal 8.5-10.1 [facility] Comment on above: Performed By: #### L 749.20 #### [facility] Laboratory [address] [place], [address] Chloride [Moles/Vol] 106 mmol/L Normal 98-107 [facility] Comment on above: Performed By: #### L 922.20 #### [facility] Laboratory [address] [place], [address] CO2 [Moles/Vol] 27.0 mmol/L Normal 21.0-32.0 [facility] Comment on above: Performed By: #### L 821.20 #### [facility] Laboratory [address] [place], [address] Creatinine [Mass/Vol] 1.40 mg/dL High 0.55-1.02 [facility] Comment on above: Result Comment: The validity of the calculated GFR GFRAA in patients over 70 years has not been determined. Clinical correlation is essential. Performed By: #### L 311.20 #### [facility] Laboratory [address] [place], [address] EST GFR - AA 47 mL/min Low >60 [facility] Comment on above: Result Comment: Afri can [place] GFR Calc Performed By: #### L 563.20 #### [facility] Laboratory [address] [place], [address] GAP 6 Normal 5-15 [facility] Comment on above: Performed By: #### L 503.6620 #### [facility] Laboratory [address] [place], [address] GFR/1.73 sq M.predicted among non-blacks MDRD (S/P/Bld) [Vol rate/Area] 39 mL/min/{1.73_m2} Low >60 [facility] Comment on above: Result Comment: Non- GFR Calc Performed By: #### L 503.20 #### [facility] Laboratory [address] [place], [address] Globulin (S) [Mass/Vol] 4.1 g/dL Normal 2.2-4.2 [facility] Comment on above: Performed By: #### L 503.20 #### [facility] Laboratory [address] [place], [address] Glucose [Mass/Vol] 168 mg/dL High 74-106 [facility] Comment on above: Result Comment: Fast ing Glucose result greater than or equal to 126 mg/dL suggests DIABETES MELLITUS per A.D.A. criteria. Performed By: #### L 503.6620 #### [facility] Laboratory [address] [place], [address] Potassium [Moles/Vol] 3.4 mmol/L Low 3.5-5.1 [facility] Comment on above: Performed By: #### L 503.20 #### [facility] Laboratory [address] [place], [address] Sodium [Moles/Vol] 139 mmol/L Normal 136-145 [facility] Comment on above: Performed By: #### L 503.20 #### [facility] Laboratory [address] [place], [address] T PROT 7.3 g/dL Normal 6.4-8.2 [facility] Comment on above: Performed By: #### L 503.6620 #### [facility] Laboratory [address] [place], [address] Urea nitrogen [Mass/Vol] 33 mg/dL High 7-18 [facility] Comment on above: Performed By: #### L 503.6620 #### [facility] Laboratory [address] [place], [address] Lipid Profileon 01-27-2024 Cholesterol [Mass/Vol] 135 mg/dL Normal 200 [facility] Comment on above: Result Comment: <200 mg/dL Desirable 200-240 mg/dL Borderline >240 mg/dL High Risk Performed By: #### L 503.6620 #### [facility] Laboratory [address] [place], [address] Cholesterol in HDL [Mass/Vol] 48 mg/dL Normal [facility] Comment on above: Result Comment: The drugs N-Acetylcysteine and Metamizole may falsely depress this assay. Reference Range HDL <40 mg/dL Low HDL Cholesterol HDL >or= 60 mg/dL High HDL Cholesterol Performed By: #### L 503.6620 #### [facility] Laboratory [address] [place], [address] Cholesterol in LDL [Mass/Vol] 51 mg/dL Normal 0-130 [facility] Comment on above: Performed By: #### L 503.6620 #### [facility] Laboratory [address] [place], [address] Cholesterol in VLDL [Mass/Vol] 36 mg/dL Normal 5-40 [facility] Comment on above: Performed By: #### L 503.6620 #### [facility] Laboratory [address] [place], [address] Triglyceride [Mass/Vol] 180 mg/dL Normal [facility] Comment on above: Result Comment: The drugs N-Acetylcysteine and Metamizole may falsely depress this assay. Serum Triglycerides Reference Interval Normal <150 mg/dL Borderline high 150 - 199 mg/dL High 200 - 499 mg/dL Very High > or = 500 mg/dL Performed By: #### L 503.6620 #### [facility] Laboratory [address] [place], [address] Microalb:Creat Ratio,Random URon 01-27-2024 Creatinine [Mass/Vol] 104.00 mg/dL Normal NO RAN GE EST. [facility] Comment on above: Performed By: #### L 503.6620 #### [facility] Laboratory [address] [place], [address] MALB:CRE 901.9 mg/g CRE High <30 mg/g CRE [facility] Comment on above: Performed By: #### L 503.6620 #### [facility] Laboratory [address] [place], [address] MICROALBUMIN,UR 938.0 mg/L Normal NO RANGE EST. [facility] Comment on above: Performed By: #### L 503.6620 #### [facility] Laboratory [address] [place], [address] Ankle min 3 Viewson 11-15-19 Ankle min 3 Views [facility] Imaging Services [address] [place] [address] Ankle min 3 Views MR#: [id number] Acct: [id number] Name: CHRISTY FRANCIS Rep #: [id number] : 1950 F 73 From: Liborio Mendez PCP: Dr. Marielos Perla DO Status: REG CLI Study: Ankle min 3 Views Date of Exam: 11/15/23 Exam# [id number] Ordering Dr: Marielos Perla DO [id number] INDICATION: PAIN EXAMINATION/TECHNIQUE: X-RAY - LEFT XR Ankle Min 3 Views 3 VIEWS COMPARISON: No relevant prior comparison study available FINDINGS: SOFT TISSUES: No soft tissue swelling or gas. No radiopaque foreign body. BONES/JOINTS: No acute fracture or subluxation.. Plantar posterior calcaneal spurs. Preservation of the joint space.. No sclerotic or destructive changes observed. RAD/Ankle min 3 Views IMPRESSION: Calcaneal spurs. Electronically Signed: Liborio Hook MD at 9:34 EDT , CC: Dr. Marielos Perla DO Motor Runner: Signed Normal [facility] Ankle min 3 Views [facility] Imaging Services [address] [place] [address] Ankle min 3 Views MR#: [id number] Acct: [id number] Name: CHRISTY FRANCIS Rep #: [id number] : 1950 F 73 From: Liborio Mendez PCP: Dr. Marielos Perla DO Status: REG CLI Study: Ankle min 3 Views Date of Exam: 11/15/23 Exam# [id number] Ordering Dr: Marielos Perla DO [id number] INDICATION: PAIN EXAMINATION/TECHNIQUE: X-RAY - RIGHT XR Ankle Min 3 Views 3 VIEWS COMPARISON: No relevant prior comparison study available FINDINGS: SOFT TISSUES: Soft tissue swelling of the lateral aspect of the ankle. No radiopaque foreign body. BONES/JOINTS: No acute fracture or subluxation.. Posterior calcaneal spur. Mild cystic changes of the navicular bone. No sclerotic or destructive changes observed. RAD/Ankle min 3 Views IMPRESSION: Mild degenerative changes Electronically Signed: Liborio Hook MD at 9:36 EDT , CC: Dr. Marielos Perla, Motor Runner: Signed Normal [facility] Comprehensive Metabolic Prof ilon 11-15-2023 Albumin [Mass/Vol] 3.1 g/dL Low 3.2-5.0 [facility] Comment on above: Performed By: #### L 501.1400, L500.4050 #### [facility] Laboratory [address] [place], [address] Albumin/Globulin [Mass ratio] 0.6 {ratio} Low 0.9-2.4 [facility] Comment on above: Performed By: #### L 501.1400, L500.4050 #### [facility] Laboratory [address] [place], [address] ALK P 94 U/L Normal 45-117 [facility] Comment on above: Performed By: #### L 501.1400, L500.4050 #### [facility] Laboratory [address] [place], [address] ALT [Catalytic activity/Vol] 21 U/L Normal 13-56 [facility] Comment on above: Performed By: #### L 501.1400, L500.4050 #### [facility] Laboratory [address] [place], [address] AST [Catalytic activity/Vol] 19 U/L Normal 15-37 [facility] Comment on above: Performed By: #### L 501.1400, L500.4050 #### [facility] Laboratory [address] [place], [address] Bilirubin [Mass/Vol] 0.40 mg/dL Normal 0.20-1.00 [facility] Comment on above: Result Comment: For patients on eltrombopag therapy, use of Dimension [place] TBIL is not recommended. Performed By: #### L 501.1400, L500.4050 #### [facility] Laboratory [address] [place], [address] BUN/CRE 15.3 RATIO Normal 10-20 [facility] Comment on above: Performed By: #### L 501.1400, L500.4050 #### [facility] Laboratory [address] [place], [address] CA,Total 9.8 mg/dL Normal 8.5-10.1 [facility] Comment on above: Performed By: #### L 501.1400, L500.4050 #### [facility] Laboratory [address] [place], [address] Chloride [Moles/Vol] 99 mmol/L Normal 98-107 [facility] Comment on above: Performed By: #### L 501.1400, L500.4050 #### [facility] Laboratory [address] [place], [address] CO2 [Moles/Vol] 29.0 mmol/L Normal 21.0-32.0 [facility] Comment on above: Performed By: #### L 501.1400, L500.4050 #### [facility] Laboratory [address] [place], [address] Creatinine [Mass/Vol] 1.24 mg/dL High 0.55-1.02 [facility] Comment on above: Result Comment: The validity of the calculated GFR GFRAA in patients over 70 years has not been determined. Clinical correlation is essential. Performed By: #### L 501.1400, L500.4050 #### [facility] Laboratory [address] [place], [address] EST GFR - AA 54 mL/min Low >60 [facility] Comment on above: Result Comment: Afri can [place] GFR Calc Performed By: #### L 501.1400, L500.4050 #### [facility] Laboratory [address] [place], [address] GAP 6 Normal 5-15 [facility] Comment on above: Performed By: #### L 501.1400, L500.4050 #### [facility] Laboratory [address] [place], [address] GFR/1.73 sq M.predicted among non-blacks MDRD (S/P/Bld) [Vol rate/Area] 45 mL/min/{1.73_m2} Low >60 [facility] Comment on above: Result Comment: Non- GFR Calc Performed By: #### L 501.1400, L500.4050 #### [facility] Laboratory [address] [place], [address] Globulin (S) [Mass/Vol] 5.0 g/dL High 2.2-4.2 [facility] Comment on above: Performed By: #### L 501.1400, L500.4050 #### [facility] Laboratory [address] [place], [address] Glucose [Mass/Vol] 177 mg/dL High 74-106 [facility] Comment on above: Result Comment: Fast ing Glucose result greater than or equal to 126 mg/dL suggests DIABETES MELLITUS per A.D.A. criteria. Performed By: #### L 501.1400, L500.4050 #### [facility] Laboratory [address] [place], [address] Potassium [Moles/Vol] 3.5 mmol/L Normal 3.5-5.1 [facility] Comment on above: Performed By: #### L 501.1400, L500.4050 #### [facility] Laboratory [address] [place], [address] Sodium [Moles/Vol] 134 mmol/L Low 136-145 [facility] Comment on above: Performed By: #### L 501.1400, L500.4050 #### [facility] Laboratory [address] [place], [address] T PROT 8.1 g/dL Normal 6.4-8.2 [facility] Comment on above: Performed By: #### L 501.1400, L500.4050 #### [facility] Laboratory [address] [place], [address] Urea nitrogen [Mass/Vol] 19 mg/dL High 7-18 [facility] Comment on above: Performed By: #### L 501.1400, L500.4050 #### [facility] Laboratory [address] [place], [address] Foot min 3 Viewson 4 Foot min 3 Views [facility] Imaging Services [address] [place] [address] Foot min 3 Views MR#: [id number] Acct: [id number] Name: CHRISTY FRANCIS Rep #: [id number] : 1950 F 73 From: Liborio Mendez PCP: Dr. Marielos Perla DO Status: REG CLI Study: Foot min 3 Views Date of Exam: 11/15/23 Exam# [id number] Ordering Dr: Marielos Perla DO [id number] INDICATION: PAIN EXAMINATION/TECHNIQUE: X-RAY - RIGHT XR Foot Min 3 Views 3 VIEWS COMPARISON: No relevant prior comparison study available FINDINGS: SOFT TISSUES: No soft tissue swelling or gas. No radiopaque foreign body. BONES/JOINTS: No acute fracture or subluxation.. Posterior and plantar calcaneal spurs. Mild narrowing with marginal degenerative spurs of the first metatarsophalangeal joint. No sclerotic or destructive changes observed. 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 Calcaneal spurs. Electronically Signed: Liborio Hook MD at 9:33 EDT , CC: Dr. Marielos Perla DO Motor Runner: Signed Normal [facility] Foot min 3 Views [facility] Imaging Services [address], [place] [address] Foot min 3 Views MR#: [id number] Acct: [id number] Name: CHRISTY FRANCIS Rep #: [id number] : 1950 F 73 From: Liborio Mendez PCP: Dr. Marielos Perla DO Status: REG CLI Study: Foot min 3 Views Date of Exam: 11/15/23 Exam# [id number] Ordering Dr: Marielos Perla DO [id number] INDICATION: PAIN EXAMINATION/TECHNIQUE: X-RAY - LEFT XR Foot Min 3 Views 3 VIEWS COMPARISON: Prior study dated: 01/23/2008 FINDINGS: SOFT TISSUES: No soft tissue swelling or gas. No radiopaque foreign body. BONES/JOINTS: No acute fracture or subluxation.. Plantar and posterior calcaneal spurs. Moderate degenerative arthrosis of the first metatarsophalangeal joint with marginal degenerative spurs. No sclerotic or destructive changes observed. RAD/Foot min 3 Views IMPRESSION: Degenerative arthrosis. Electronically Signed: Liborio Hook MD at 9:32 EDT , CC: Dr. Marielos Perla DO Motor Runner: Signed Normal [facility] Uric Acidon 11-15-2023 URIC 2.8 mg/dL Normal 2.6-6.0 [facility] Comment on above: Result Comment: The drugs N-Acetylcysteine and Metamizole may falsely depress this assay. Performed By: #### L 501.1400, L500.4050 #### [facility] Laboratory [address] [place], [address] Cardiology Visit Reporton Cardiology Visit Report [facility] [address] [place] [address] OFFICE VISIT Date of Service: 11/05/23 MR#: [id number] Acct: [id number] Name: CHRISTY FRANCIS Rep #: [id number] : 1950 Provider: Dr. Jorge Anderson MD Age/Sex: 73/F Location[place] [facility] [place] Status: Signed HPI HPI History of Present Illness Details: This is a 73-year-old white female who presents today for outpatient cardiovascular follow-up visit. She has a history of underlying CAD status post CABG ([facility]: 02-27-2019: GIRALDO to the LAD, SVG to OM 2, and SVG to RCA/PDA), ischemic mediated cardiomyopathy, hyperlipidemia, hypertension, and peripheral arterial occlusive disease (especially lower extremities for which she follows with Dr. Singh of peripheral vascular surgery). She does feel that her HR is beating faster than it should be. This occurs a few times a week. It can last a up to a minute. She is also more tired. She does not have any chest pain but still does have discomfort around her GIRADLO graft. She does not have any worsening SOB. She does follow with Dr. Singh. She does have symptoms of claudication, this is similar. 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 Required: No Accompanied by: Self Is patient in pain?: No Allergies cefazolin Allergy (Verified 11/05/23 11:31) Shortness of breath codeine Allergy (Verified 11/05/23 11:31) Shortness of breath morphine Allergy (Verified 11/05/23 11:31) Other naloxone (Naloxone) Allergy (Verified 11/05/23 11:31) Shortness of breath pentazocine Allergy (Verified 11/05/23 11:31) Shortness of breath pentazocine lactate (From Talwin) Allergy (Verified 11/05/23 11:31) Shortness of breath atorvastatin Adverse Reaction (Severe, Verified 11/05/23 11:31) Severe myalgias acetaminophen (From Tylenol) Adverse Reaction (Verified 11/05/23 11:31) Nausea Medications ???Medication ???Instructions ???Recorded ???Confirmed ???Type aspirin 81 mg tablet,delayed 81 mg PO DAILY heart health 12/15/13 11/05/23 History release nitroglycerin 0.4 mg sublingual 0.4 mg sublingual Q5-15M PRN chest 05/26/21 11/05/23 Rx tablet pain #90 tabs oxycodone-acetaminophen 5 mg-325 1 tab PO Q8H PRN pain 3 days #9 03/29/22 11/05/23 Rx mg tablet (Percocet) tabs duloxetine 60 mg capsule,delayed 60 mg PO DAILY 08/20/22 11/05/23 History release glimepiride 4 mg tablet 4 mg PO BID 08/20/22 11/05/23 History insulin aspar prot-insulin aspart 60 unit subcut QAM 08/20/22 11/05/23 History 100 unit/mL (70-30) subcutaneous pen (Novolog Mix 70-30FlexPen U-100) insulin aspar prt-insulin aspart 65 unit subcut QPM 08/20/22 11/05/23 History 100 unit/mL (70-30) subcutaneous soln (Novolog Mix 70-30 U-100 Insuln) metoprolol tartrate 50 mg tablet 50 mg PO BID This is a dose 12/03/22 11/05/23 Rx increase #180 tabs rosuvastatin 10 mg tablet See Rx Instructions .Route 04/06/23 11/05/23 Rx .COMPLEX #90 TABLETS furosemide 40 mg tablet 40 mg PO DAILY #90 TABLETS 08/02/23 11/05/23 Rx isosorbide mononitrate 60 mg 60 mg PO BID #180 TABLETS 06/05/24 07/19/24 Rx tablet,extended release 24 hr allopurinol 300 mg tablet 300 mg PO BID 11/05/23 11/05/23 History cilostazol 100 mg tablet 100 mg PO BID 11/05/23 11/05/23 History Have you fallen in the past year?: No PFSH Medical History Palpitations Right rotator cuff tear Trigger finger of both hands Carpal tunnel syndrome on both sides FHx: cholecystectomy History of left heart catheterization (LHC) ( 06/03/21) Essential hypertension Mechanical loosening of prosthetic knee Atherosclerosis of knik coronary artery of knik heart without angina pectoris PAD (peripheral artery disease) HLD (hyperlipidemia) Type II diabetes mellitus Surgical History History of coronary artery bypass graft x 3 ( 02/27/19) History of prosthetic unicompartmental arthroplasty of left knee Status post left heart catheterization (LHC) ( 02/22/19) Family History Mother Heart disease Social History Smoking Status: Former smoker how long ago did patient quit smokin years ago alcohol intake: current alcohol intake frequency: holidays/special occasions only substance use type: does not use caffeine: Yes Type: coffee Number of servings: 2 ROS Const Const: Positive for fatigue and daytime sleepiness; Neg (more content not included)... Normal [facility] Comprehensive Metabolic Prof uton 10-12-2023 Albumin [Mass/Vol] 3.0 g/dL Low 3.2-5.0 [facility] Comment on above: Performed By: #### L 500.8650 #### [facility] Laboratory [address] [place], [place], [address] Albumin/Globulin [Mass ratio] 0.7 {ratio} Low 0.9-2.4 [facility] Comment on above: Performed By: #### L 500.3580 #### [facility] Laboratory [address] [place], [address] ALK P 88 U/L Normal 45-117 [facility] Comment on above: Performed By: #### L 500.4050 #### [facility] Laboratory [address] [place], [address] ALT [Catalytic activity/Vol] 22 U/L Normal 13-56 [facility] Comment on above: Performed By: #### L 500.4050 #### [facility] Laboratory [address] [place], [address] AST [Catalytic activity/Vol] 15 U/L Normal 15-37 [facility] Comment on above: Performed By: #### L 500.4050 #### [facility] Laboratory [address] [place], [address] Bilirubin [Mass/Vol] 0.30 mg/dL Normal 0.20-1.00 [facility] Comment on above: Result Comment: For patients on eltrombopag therapy, use of Dimension [place] TBIL is not recommended. Performed By: #### L 500.4050 #### [facility] Laboratory [address] [place], [address] BUN/CRE 23.7 RATIO High 10-20 [facility] Comment on above: Performed By: #### L 500.4050 #### [facility] Laboratory [address] [place], [address] CA,Total 9.5 mg/dL Normal 8.5-10.1 [facility] Comment on above: Performed By: #### L 500.4050 #### [facility] Laboratory [address] [place], [address] Chloride [Moles/Vol] 105 mmol/L Normal 98-107 [facility] Comment on above: Performed By: #### L 500.4050 #### [facility] Laboratory [address] [place], [address] CO2 [Moles/Vol] 28.0 mmol/L Normal 21.0-32.0 [facility] Comment on above: Performed By: #### L 500.4050 #### [facility] Laboratory [address] [place], [address] Creatinine [Mass/Vol] 1.52 mg/dL High 0.55-1.02 [facility] Comment on above: Result Comment: The validity of the calculated GFR GFRAA in patients over 70 years has not been determined. Clinical correlation is essential. Performed By: #### L 500.4050 #### [facility] Laboratory [address] [place], [address] EST GFR - AA 43 mL/min Low >60 [facility] Comment on above: Result Comment: Afri can [place] GFR Calc Performed By: #### L 500.4050 #### [facility] Laboratory [address] [place], [address] GAP 6 Normal 5-15 [facility] Comment on above: Performed By: #### L 500.4050 #### [facility] Laboratory [address] [place], [address] GFR/1.73 sq M.predicted among non-blacks MDRD (S/P/Bld) [Vol rate/Area] 36 mL/min/{1.73_m2} Low >60 [facility] Comment on above: Result Comment: Non- GFR Calc Performed By: #### L 500.4050 #### [facility] Laboratory [address] [place], [address] Globulin (S) [Mass/Vol] 4.5 g/dL High 2.2-4.2 [facility] Comment on above: Performed By: #### L 500.4050 #### [facility] Laboratory [address] [place], [address] Glucose [Mass/Vol] 148 mg/dL High 74-106 [facility] Comment on above: Result Comment: Fast ing Glucose result greater than or equal to 126 mg/dL suggests DIABETES MELLITUS per A.D.A. criteria. Performed By: #### L 500.4050 #### [facility] Laboratory [address] [place], [address] Potassium [Moles/Vol] 3.5 mmol/L Normal 3.5-5.1 [facility] Comment on above: Performed By: #### L 500.4050 #### [facility] Laboratory [address] [place], [address] Sodium [Moles/Vol] 139 mmol/L Normal 136-145 [facility] Comment on above: Performed By: #### L 500.4050 #### [facility] Laboratory [address] [place], [address] T PROT 7.5 g/dL Normal 6.4-8.2 [facility] Comment on above: Performed By: #### L 500.4050 #### [facility] Laboratory [address] [place], [address] Urea nitrogen [Mass/Vol] 36 mg/dL High 7-18 [facility] Comment on above: Performed By: #### L 500.4050 #### [facility] Laboratory [address] [place], [address] Comprehensive Metabolic Prof ilon 10-11-2023 ALB Normal 3.2-5.0 [facility] Comment on above: Result Comment: This specimen has been REJECTED due to Laboratory criteria: MisHandled. LAB has been notified of need of recollection. 10/11/23 1801 Aida Meng Performed By: #### L 500.4050 #### [facility] [address] [place], [address] ALK P Normal 45-117 [facility] Comment on above: Result Comment: This specimen has been REJECTED due to Laboratory criteria: MisHandled. LAB has been notified of need of recollection. 10/11/231800 Aida Clapper Performed By: #### L 500.4050 #### [facility] [address] [place], [address] ALT Normal 13-56 [facility] Comment on above: Result Comment: This specimen has been REJECTED due to Laboratory criteria: MisHandled. LAB has been notified of need of recollection. 10/11/231800 Aida Clapper Performed By: #### L 500.4050 #### [facility] [address] [place], [address] AST Normal 15-37 [facility] Comment on above: Result Comment: This specimen has been REJECTED due to Laboratory criteria: MisHandled. LAB has been notified of need of recollection. 10/11/231800 Aida Clapper Performed By: #### L 500.4050 #### [facility] [address] [place], [address] BUN Normal 7-18 [facility] Comment on above: Result Comment: This specimen has been REJECTED due to Laboratory criteria: MisHandled. LAB has been notified of need of recollection. 10/11/231800 Aida Clapper Performed By: #### L [id number] #### [facility] [address] [place], [address] BUN/CRE Normal 10-20 [facility] Comment on above: Result Comment: This specimen has been REJECTED due to Laboratory criteria: MisHandled. LAB has been notified of need of recollection. 10/11/231800 Aida Clapper Performed By: #### L [id number] #### [facility] [address] [place], [address] CA,Total Normal 8.5-10.1 [facility] Comment on above: Result Comment: This specimen has been REJECTED due to Laboratory criteria: MisHandled. LAB has been notified of need of recollection. 10/11/231800 Aida Clapper Performed By: #### L 500.4050 #### [facility] [address] [place], [address] CL Normal 98-107 [facility] Comment on above: Result Comment: This specimen has been REJECTED due to Laboratory criteria: MisHandled. LAB has been notified of need of recollection. 10/11/23 180 Aida Clapper Performed By: #### L [id number] #### [facility] [address] [place], [address] CO2 Normal 21.0-32.0 [facility] Comment on above: Result Comment: This specimen has been REJECTED due to Laboratory criteria: MisHandled. LAB has been notified of need of recollection. 10/11/231800 Aida Clapper Performed By: #### L [id number] #### [facility] [address] [place], [address] CREAT,SERUM Normal 0.55-1.02 [facility] Comment on above: Result Comment: This specimen has been REJECTED due to Laboratory criteria: MisHandled. LAB has been notified of need of recollection. 10/11/231800 Aida Clapper Performed By: #### L 500.4050 #### [facility] [address] [place], [address] EST GFR Normal >60 [facility] Comment on above: Result Comment: This specimen has been REJECTED due to Laboratory criteria: MisHandled. LAB has been notified of need of recollection. 10/11/23 180 Aida Clapper Performed By: #### L [id number] #### [facility] [address] [place], [address] EST GFR - AA Normal >60 [facility] Comment on above: Result Comment: This specimen has been REJECTED due to Laboratory criteria: MisHandled. LAB has been notified of need of recollection. 10/11/23 180 Aida Clapper Performed By: #### L [id number] #### [facility] [address] [place], [address] GAP Normal 5-15 [facility] Comment on above: Result Comment: This specimen has been REJECTED due to Laboratory criteria: MisHandled. LAB has been notified of need of recollection. 10/11/23 180 Aida Clapper Performed By: #### L [id number] #### [facility] [address] [place], [address] GLU Normal 74-106 [facility] Comment on above: Result Comment: This specimen has been REJECTED due to Laboratory criteria: MisHandled. LAB has been notified of need of recollection. 10/11/231800 Aida Clapper Performed By: #### L [id number] #### [facility] [address] [facility] [address] Potassium Normal 3.5-5.1 [facility] Comment on above: Result Comment: This specimen has been REJECTED due to Laboratory criteria: MisHandled. LAB has been notified of need of recollection. 10/11/231800 Aida Clapper Performed By: #### L [id number] #### [facility] [address] [place], [address] T BILI Normal 0.20-1.00 [facility] Comment on above: Result Comment: This specimen has been REJECTED due to Laboratory criteria: MisHandled. LAB has been notified of need of recollection. 10/11/231800 Aida Clapper Performed By: #### L 500.4050 #### [facility] [address] [place], [address] T PROT Normal 6.4-8.2 [facility] Comment on above: Result Comment: This specimen has been REJECTED due to Laboratory criteria: MisHandled. LAB has been notified of need of recollection. 10/11/23 1801 Aida Clapper Performed By: #### L [id number] #### [facility] [address] [place], [address] Comprehensive Metabolic Profil Normal 136-145 [facility] Comment on above: Result Comment: This specimen has been REJECTED due to Laboratory criteria: MisHandled. LAB has been notified of need of recollection. 10/11/23 1801 Aida Clapper Performed By: #### L [id number] #### [facility] [address] [place], [address] Ankle Brachial Indexon 09-30 Ankle Brachial Index [facility] Cardiovascular Services [address] [place] [address] Ankle Brachial Index 10/01/23 1356 MR#: [id number] Acct: [id number] Name: CHRISTY FRANCIS Rep #: [id number] : 1950 73 From: Moose Singh MD Attending Dr: Dr. Moose Singh MD Status: DE P CLI Ordering Dr: Moose Singh MD Date: 10/01/23 Location: [facility] Sex: F C Admitted: Reason For Study: PVD Procedure A bilateral lower extremity continuous wave Doppler with analog waveform analysis and ankle brachial indexes. Left Segmental Pressures Left brachial= 143mmHg. Left posterior tibial artery = 80mmHg. Left dorsalis pedis artery = 65mmHg. Left digit = 41 mmHg. The left posterior tibial artery waveforms are monophasic. The left dorsalis pedis waveforms are biphasic. Right Segmental Pressures Right brachial= 137mmHg. Right posterior tibial artery = 79mmHg. Right dorsalis pedis artery = 102mmHg. Right digit = 57 mmHg. The right posterior tibial artery waveforms are monophasic. The right dorsalis pedis waveforms are monophasic. Indices The right resting ankle brachial index is 0.71. The right ankle brachial index by the posterior tibial artery is 0.55. The right ankle brachial index by the dorsalis pedis is 0.71. The right digital-brachial index is 0.40. The left resting ankle brachial index is 0.56. The left ankle brachial index by the posterior tibial artery is 0.56. The left ankle brachial index by the dorsalis pedis is 0.45. The left digital-brachial index is 0.29. VL/Ankle Brachial Index Interpretation Summary The right resting ankle-brachial index appears mildly abnormal. The left resting ankle-brachial index appears moderately abnormal. ___ Ordering Physician: Moose Singh Referring Physician: Marielos Perla Performed By: Sylvia Gutierrez RVT, RDCS and Student 11/10/231957 Date Moose Singh MD CC: Dr. Moose Singh MD; Dr. Marielos Perla DO Date Dictated: 10/01/23 1356 Date Transcribed: 11/10/231957 Motor Runner: Signed Trey [facility] Emergency Department Summary on 10-01-2023 Emergency Department Summary [facility] Medical Records Department [address] [place] [id number] Emergency Department Summary 10/01/23 MR#: [id number] Acct: [id number] Name: CHRISTY FRANCIS Rep #: [id number] : 1950 73 From: Keren Cordova MD PCP: Dr. Marielos Perla DO Status:[facility] ER Location: ED HPI History of Present Illness Chief Complaint: Lower Extremity Injury Informant: patient Onset/Context/Timing Onset: Days (4 days) Context: Gradual Onset Narrative Narrative: Patient presents secondary to right knee pain for the past 4 to 5 days. She has been fighting bronchitis and was recently prescribed her third round of Zithromax along with prednisone. She started that late last week and by Wednesday noted what she thought was a gout flare causing pain to her right knee and right ankle. She was seen by her doctor on Wednesday and told to stop the prednisone. She was seen by her vascular doctor today who recommended she be seen by a doctor because she had redness over her anterior right knee. She has not had any significant swelling. She has had no fever or chills. She has had left knee surgery but no prior surgery or injections on the right knee. [facility] Medical History Palpitations Right rotator cuff tear Trigger finger of both hands Carpal tunnel syndrome on both sides FHx: cholecystectomy History of left heart catheterization (LHC) ( 06/03/21) Essential hypertension Mechanical loosening of prosthetic knee Atherosclerosis of knik coronary artery of knik heart without angina pectoris PAD (peripheral artery disease) HLD (hyperlipidemia) Type II diabetes mellitus Home Medications ???Medication ???Instructions ???Recorded ???Last Taken ???Type aspirin 81 mg tablet,delayed 81 mg PO DAILY heart health 12/15/13 06/03/21 History release potassium chloride 10 mEq 20 meq (2 x 10 mEq) PO DAILY When 12/09/20 Unknown Rx tablet,extended release taking Lasix #180 tabs nitroglycerin 0.4 mg sublingual 0.4 mg sublingual Q5-15M PRN chest 05/26/21 Unknown Rx tablet pain #90 tabs oxycodone-acetaminophen 5 mg-325 1 tab PO Q8H PRN pain 3 days #9 03/29/22 Unknown Rx mg tablet (Percocet) tabs colchicine 0.6 mg tablet 0.6 mg PO DAILY 08/20/22 Unknown History duloxetine 60 mg capsule,delayed 60 mg PO DAILY 08/20/22 Unknown History release glimepiride 4 mg tablet 4 mg PO BID 08/20/22 Unknown History insulin aspar prot-insulin aspart 60 unit subcut QAM 08/20/22 Unknown History 100 unit/mL (70-30) subcutaneous pen (Novolog Mix 70-30FlexPen U-100) insulin aspar prt-insulin aspart 65 unit subcut QPM 08/20/22 Unknown History 100 unit/mL (70-30) subcutaneous soln (Novolog Mix 70-30 U-100 Insuln) metoprolol tartrate 50 mg tablet 50 mg PO BID This is a dose 12/03/22 Unknown Rx increase #180 tabs rosuvastatin 10 mg tablet See Rx Instructions .Route 04/06/23 Unknown Rx .COMPLEX #90 TABLETS furosemide 40 mg tablet 40 mg PO DAILY #90 TABLETS 08/02/23 Unknown Rx isosorbide mononitrate 60 mg 60 mg PO BID #180 TABLETS 09/22/23 Unknown Rx tablet,extended release 24 hr doxycycline monohydrate 100 mg 100 mg PO BID #20 CAPSULES 10/01/23 Unknown Rx capsule Allergy/AdvReac Type Severity Reaction Status Date / Time cefazolin Allergy Shortness Verified 10/01/23 14:44 of breath codeine Allergy Shortness Verified 10/01/23 14:44 of breath morphine Allergy Other Verified 10/01/23 14:44 naloxone (Naloxone) Allergy Shortness Verified 10/01/23 14:44 of breath pentazocine Allergy Shortness Verified 10/01/23 14:44 of breath pentazocine lactate (From Allergy Shortness Verified 10/01/23 14:44 Talwin) of breath atorvastatin AdvReac Severe Severe Verified 10/01/23 14:44 myalgias acetaminophen (From Tylenol) AdvReac Nausea Verified 10/01/23 14:44 Family History Mother Heart disease Surgical History History of coronary artery bypass graft x 3 ( 02/27/19) History of prosthetic unicompartmental arthroplasty of left knee Status post left heart catheterization (LHC) ( 02/22/19) Social History Smoking Status: Former smoker how long ago did patient quit smokin years ago alcohol intake: current alcohol intake frequency: holidays/special occasions only substance use type: does not use caffeine: Yes Type: coffee Number of servings: 2 ROS ROS ED Constitutional Constitutional ED: Denies chills or fever(s) ENT ENT ED: Denies rhinorrhea or sore throat Cardiovascular Cardiovascular: Denies chest pain Respiratory/Chest Respiratory/Chest: Reports cough; Denies dyspnea Gastrointestinal Ga (more content not included)... Normal [facility] Knee 4 or More Viewson 09-30 Knee 4 or More Views [facility] Imaging Services [address] [place], [place] [address] Knee 4 or More Views MR#: [id number] Acct: [id number] Name: CHRISTY FRANCIS Rep #: [id number] : 1950 F 73 From: Mil Castañeda MD PCP: Dr. Marielos Perla DO Status: REG ER Study: Knee 4 or More Views Date of Exam: 10/01/23 Exam# [id number] Ordering Dr: Keren Cordova MD [id number] STUDY: X-RAY - RIGHT KNEE REASON FOR EXAM: Female, 73 years old. Pain TECHNIQUE: 4 view(s) of the knee. COMPARISON: None. FINDINGS: There is no evidence of fracture or dislocation. There are mild degenerative changes. There are vascular calcifications noted. There are no radiodense foreign bodies. RAD/Knee 4 or More Views IMPRESSION: No fracture or dislocation in the right knee. Mild degenerative change. Electronically Signed: Mil Castañeda MD at 15:46 EDT , CC: Dr. Keren Cordova MD; Dr. Marielos Perla DO Motor Runner: Signed Normal [facility] Basophil percentageOrdered B y: Marielos Perla on 06-14-2023 Creatinine [Mass/Vol] 1.4 mg/dL 0.55-1.02 [facility] Laboratory - Chemistry and C hemistry - challengeOrdered By: Marielos Perla on 06-14-2023 GFR/1.73 sq M.predicted among non-blacks MDRD (S/P/Bld) [Vol rate/Area] 40.0000 mL/min/{1.73_m2} >60 [facility] Absolute lymphocyte countOrd ered By: Marielos Perla on 11-23-2022 Lymphocytes Auto (Unsp spec) [#/Vol] 2.13 10*3/uL 0.83-4.51 [facility] Basophil percentageOrdered B y: Marielos Perla on 11-23-2022 Basophils/100 WBC (Bld) 0.9 % 0-1 [facility] Bilirubin [Mass/Vol] 0.40 mg/dL 0.20-1.00 [facility] Comment on above: For patients on eltr ombopag therapy, use of Dimension [place] TBIL is not recommended. Chloride [Moles/Vol] 106 mmol/L 98-107 [facility] Cholesterol [Mass/Vol] 165 mg/dL <200 [facility] Comment on above: <200 mg/dL Desirable 200-240 mg/dL Borderline >240 mg/dL High Risk Eosinophils/100 WBC (Bld) 7.6 % 0-5 [facility] Glucose [Mass/Vol] 183 mg/dL 74-106 [facility] Comment on above: Fasting Glucose resu lt greater than or equal to 126 mg/dL suggests DIABETES MELLITUS per A.D.A. criteria. Neutrophils (Bld) [#/Vol] 4.6 10*3/uL 2.0-7.7 [facility] Neutrophils/100 WBC (Bld) 55.9 % 47-70 [facility] Potassium [Moles/Vol] 4.3 mmol/L 3.5-5.1 [facility] Protein [Mass/Vol] 7.5 g/dL 6.4-8.2 [facility] Sodium [Moles/Vol] 138 mmol/L 136-145 [facility] Triglyceride [Mass/Vol] 241 mg/dL <199 [facility] Comment on above: The drugs N-Acetylcy steine and Metamizole may falsely depress this assay.Serum Triglycerides Reference Interval Normal <150 mg/dL Borderline high 150 - 199 mg/dL High 200 - 499 mg/dL Very High > or = 500 mg/dL WBC (Bld) [#/Vol] 8.1 10*3/uL 4.4-11.0 [facility] Blood erythrocytes count (nu mber/volume)Ordered By: Marielos Perla on 11-23-2022 RBC (Bld) [#/Vol] 4.97 10*6/uL 4.2-5.4 [facility] Blood hemoglobin measurement (mass/volume)Ordered By: Marielos Perla on 11-23-2022 Hemoglobin (Bld) [Mass/Vol] 15.5 g/dL 12.0-15.0 [facility] Blood lymphocytes/100 leukoc ytesOrdered By: Marielos Perla on 11-23-2022 Lymphocytes/100 WBC (Bld) 26.2 % 19-41 [facility] Blood monocytes/100 leukocyt esOrdered By: Marielos Perla on 11-23-2022 Monocytes/100 WBC (Bld) 9.0 % 0-10 [facility] Blood platelet mean volumeOr dered By: Marielos Perla on 11-23-2022 Platelet mean volume (Bld) [Entitic vol] 11.1 fL 6.2-12.0 [facility] Determination of erythrocyte mean corpuscular volume (MCV)Ordered By: Marielos Perla on 11-23-2022 MCV (RBC) [Entitic vol] 92.6 fL 81-99 [facility] Hematocrit Auto (Bld) [Volum e fraction]Ordered By: Marielos Perla on 11-23-2022 Hematocrit (Bld) [Volume fraction] 46.0 % 37-47 [facility] Laboratory - Chemistry and C hemistry - challengeOrdered By: Marielos Perla on 11-23-2022 ALP [Catalytic activity/Vol] 65 U/L 45-117 [facility] ALT [Catalytic activity/Vol] 29 U/L 13-56 [facility] CO2 [Moles/Vol] 27.0 mmol/L 21.0-32.0 [facility] Globulin (S) [Mass/Vol] 3.9 g/dL 2.2-4.2 [facility] Urea nitrogen/Creatinine [Mass ratio] 18.0 mg/mg 10-20 [facility] Laboratory - Hematology and Cell countsOrdered By: Marielos Perla on 11-23-2022 Erythrocyte distribution width (RBC) [Entitic vol] 45.6 fL 35.1-43.9 [facility] Erythrocyte distribution width (RBC) [Ratio] 13.5 % 11.6-14.6 [facility] Immature granulocytes/100 WBC (Bld) 0.400 % 0.0-0.9 [facility] Comment on above: IG% - Immature Granu locytes (promyelocytes, myelocytes and metamyelocytes) > 1% indicates that a LEFT SHIFT is Present. MCH (RBC) [Entitic mass] 31.2 pg 27.0-32.0 [facility] Nucleated RBC/100 WBC (Bld) [Ratio] 0 % 0-5 [facility] MCHC Auto (RBC) [Mass/Vol]Or dered By: Marielos Perla on 11-23-2022 MCHC (RBC) [Mass/Vol] 33.7 g/dL 32-36 [facility] No Panel InformationOrdered By: Marielos Perla on 11-23-2022 Estimated GFR (MDRD) Amer 44 mL/min >60 [facility] Comment on above: GFR Calc Estimated GFR (MDRD) Non-Af Amer 36 mL/min >60 [facility] Comment on above: Non- GFR Calc Urine Microalbumin/Creatini ne Ratio 1038.3 mg/g CRE <30 [facility] Platelets bldOrdered By: Mariposa Perla on 11-23-2022 Platelets (Bld) [#/Vol] 228 10*3/uL 150-450 [facility] Serum or plasma albumin shannon urement (mass/volume)Ordered By: Marielos Perla on 11-23-2022 Albumin [Mass/Vol] 3.6 g/dL 3.2-5.0 [facility] Serum or plasma albumin/glob ulin mass ratioOrdered By: Marielos Perla on 11-23-2022 Albumin/Globulin [Mass ratio] 0.9 {ratio} 0.9-2.4 [facility] Serum or plasma calcium shannon urement (mass/volume)Ordered By: Marielos Perla on 11-23-2022 Calcium [Mass/Vol] 9.1 mg/dL 8.5-10.1 [facility] Serum or plasma cholesterol in HDL measurement (mass/volume)Ordered By: Marielos Perla on 11-23-2022 Cholesterol in HDL [Mass/Vol] 51 mg/dL >40 [facility] Comment on above: The drugs N-Acetylcy steine and Metamizole may falsely depress this assay. Reference Range HDL <40 mg/dL Low HDL Cholesterol HDL >or= 60 mg/dL High HDL Cholesterol Serum or plasma cholesterol in VLDL measurement (mass/volume)Ordered By: Marielos Perla on 11-23-2022 Cholesterol in VLDL [Mass/Vol] 48 mg/dL 5-40 [facility] Serum or plasma creatinine m easurement (mass/volume)Ordered By: Marielos Perla on 11-23-2022 Creatinine [Mass/Vol] 1.50 mg/dL 0.55-1.02 [facility] Comment on above: The validity of the calculated GFR & GFRAA in patients over 70 years has not been determined. Clinical correlation is essential. Serum or plasma low density lipoprotein (LDL) cholesterol measurement (mass/volume)Ordered By: Marielos Perla on 11-23-2022 Cholesterol in LDL [Mass/Vol] 66 mg/dL 0-130 [facility] Serum or plasma urea nitroge n measurement (mass/volume)Ordered By: Marielos Perla on 11-23-2022 Urea nitrogen [Mass/Vol] 27 mg/dL 7-18 [facility] Thin prep Papanicolaou smear with manual screeningOrdered By: Marielos Perla on 11-23-2022 Thin prep Papanicolaou smear with manual screening 24 U/L 15-37 [facility] Thin prep Papanicolaou smear with manual screening 5 5-15 [facility] Thin prep Papanicolaou smear with manual screening 325.0 mg/L NO RANGE EST. [facility] Urine creatinine measurement (mass/volume)Ordered By: Marielos Perla on 11-23-2022 Creatinine (U) [Mass/Vol] 31.30 mg/dL NO RANGE EST. [facility] Basophil percentageOrdered B y: Charlie Johnson on 08-14-2022 Bilirubin [Mass/Vol] 0.30 mg/dL 0.20-1.00 [facility] Comment on above: For patients on eltr ombopag therapy, use of Dimension [place] TBIL is not recommended. Chloride [Moles/Vol] 109 mmol/L 98-107 [facility] Cholesterol [Mass/Vol] 185 mg/dL <200 [facility] Comment on above: <200 mg/dL Desirable 200-240 mg/dL Borderline >240 mg/dL High Risk Glucose [Mass/Vol] 70 mg/dL 74-106 [facility] Potassium [Moles/Vol] 4.2 mmol/L 3.5-5.1 [facility] Protein [Mass/Vol] 7.3 g/dL 6.4-8.2 [facility] Sodium [Moles/Vol] 141 mmol/L 136-145 [facility] Triglyceride [Mass/Vol] 360 mg/dL <199 [facility] Comment on above: The drugs N-Acetylcy steine and Metamizole may falsely depress this assay.Serum Triglycerides Reference Interval Normal <150 mg/dL Borderline high 150 - 199 mg/dL High 200 - 499 mg/dL Very High > or = 500 mg/dL WBC (Bld) [#/Vol] 10.0 10*3/uL 4.4-11.0 [facility] Blood erythrocytes count (nu mber/volume)Ordered By: Charlie Johnson on 08-14-2022 RBC (Bld) [#/Vol] 5.23 10*6/uL 4.2-5.4 [facility] Blood hemoglobin measurement (mass/volume)Ordered By: Charlie Johnson on 08-14-2022 Hemoglobin (Bld) [Mass/Vol] 15.9 g/dL 12.0-15.0 [facility] Blood platelet mean volumeOr dered By: Charlie Johnson on 08-14-2022 Platelet mean volume (Bld) [Entitic vol] 10.5 fL 6.2-12.0 [facility] Determination of erythrocyte mean corpuscular volume (MCV)Ordered By: Charlie Johnson on 08-14-2022 MCV (RBC) [Entitic vol] 95.2 fL 81-99 [facility] Direct bilirubinOrdered By: Charlie Johnson on 08-14-2022 Bilirubin.direct [Mass/Vol] 0.08 mg/dL 0.00-0.30 [facility] Hematocrit Auto (Bld) [Volum e fraction]Ordered By: Charlie Johnson on 08-14-2022 Hematocrit (Bld) [Volume fraction] 49.8 % 37-47 [facility] Laboratory - Chemistry and C hemistry - challengeOrdered By: Charlie Johnson on 08-14-2022 ALP [Catalytic activity/Vol] 68 U/L 45-117 [facility] ALT [Catalytic activity/Vol] 25 U/L 13-56 [facility] CO2 [Moles/Vol] 28.0 mmol/L 21.0-32.0 [facility] Globulin (S) [Mass/Vol] 4.0 g/dL 2.2-4.2 [facility] Natriuretic peptide B (Bld) [Mass/Vol] 336.8 pg/mL 0-100 [facility] Urea nitrogen/Creatinine [Mass ratio] 19.0 mg/mg 10-20 [facility] Laboratory - Hematology and Cell countsOrdered By: Charlie Johnson on 08-14-2022 Erythrocyte distribution width (RBC) [Entitic vol] 48.3 fL 35.1-43.9 [facility] Erythrocyte distribution width (RBC) [Ratio] 13.8 % 11.6-14.6 [facility] MCH (RBC) [Entitic mass] 30.4 pg 27.0-32.0 [facility] MCHC Auto (RBC) [Mass/Vol]Or dered By: Charlie Johnson on 08-14-2022 MCHC (RBC) [Mass/Vol] 31.9 g/dL 32-36 [facility] No Panel InformationOrdered By: Charlie Johnson on 08-14-2022 Estimated GFR (MDRD) Amer 49 mL/min >60 [facility] Comment on above: GFR Calc Estimated GFR (MDRD) Non-Af Amer 40 mL/min >60 [facility] Comment on above: Non- GFR Calc Platelets bldOrdered By: Liban Johnson on 08-14-2022 Platelets (Bld) [#/Vol] 309 10*3/uL 150-450 [facility] Serum or plasma albumin shannon urement (mass/volume)Ordered By: Charlie Johnson on 08-14-2022 Albumin [Mass/Vol] 3.3 g/dL 3.2-5.0 [facility] Serum or plasma calcium shannon urement (mass/volume)Ordered By: Charlie Johnson on 08-14-2022 Calcium [Mass/Vol] 9.3 mg/dL 8.5-10.1 [facility] Serum or plasma cholesterol in HDL measurement (mass/volume)Ordered By: Charlie Johnson on 08-14-2022 Cholesterol in HDL [Mass/Vol] 48 mg/dL >40 [facility] Comment on above: The drugs N-Acetylcy steine and Metamizole may falsely depress this assay. Reference Range HDL <40 mg/dL Low HDL Cholesterol HDL >or= 60 mg/dL High HDL Cholesterol Serum or plasma cholesterol in VLDL measurement (mass/volume)Ordered By: Charlie Johnson on 08-14-2022 Cholesterol in VLDL [Mass/Vol] 72 mg/dL 5-40 [facility] Serum or plasma creatinine m easurement (mass/volume)Ordered By: Charlie Johnson on 08-14-2022 Creatinine [Mass/Vol] 1.37 mg/dL 0.55-1.02 [facility] Comment on above: The validity of the calculated GFR & GFRAA in patients over 70 years has not been determined. Clinical correlation is essential. Serum or plasma low density lipoprotein (LDL) cholesterol measurement (mass/volume)Ordered By: Charlie Johnson on 08-14-2022 Cholesterol in LDL [Mass/Vol] 65 mg/dL 0-130 [facility] Serum or plasma urea nitroge n measurement (mass/volume)Ordered By: Charlie Johnson on 08-14-2022 Urea nitrogen [Mass/Vol] 26 mg/dL 7-18 [facility] Thin prep Papanicolaou smear with manual screeningOrdered By: Charlie Johnson on 08-14-2022 Thin prep Papanicolaou smear with manual screening 24 U/L 15-37 [facility] Thin prep Papanicolaou smear with manual screening 4 5-15 [facility] Basophil percentageOrdered B y: Charlie Johnson on 02-25-2022 Bilirubin [Mass/Vol] 0.30 mg/dL 0.20-1.00 [facility] Comment on above: For patients on eltr ombopag therapy, use of Dimension [place] TBIL is not recommended. Cholesterol [Mass/Vol] 156 mg/dL <200 [facility] Comment on above: <200 mg/dL Desirable 200-240 mg/dL Borderline >240 mg/dL High Risk Protein [Mass/Vol] 6.7 g/dL 6.4-8.2 [facility] Triglyceride [Mass/Vol] 213 mg/dL <199 [facility] Comment on above: The drugs N-Acetylcy steine and Metamizole may falsely depress this assay.Serum Triglycerides Reference Interval Normal <150 mg/dL Borderline high 150 - 199 mg/dL High 200 - 499 mg/dL Very High > or = 500 mg/dL Direct bilirubinOrdered By: Charlie Johnson on 02-25-2022 Bilirubin.direct [Mass/Vol] 0.11 mg/dL 0.00-0.30 [facility] Laboratory - Chemistry and C hemistry - challengeOrdered By: Charlie Johnson on 02-25-2022 ALP [Catalytic activity/Vol] 57 U/L 45-117 [facility] ALT [Catalytic activity/Vol] 26 U/L 13-56 [facility] Globulin (S) [Mass/Vol] 3.5 g/dL 2.2-4.2 [facility] Serum or plasma albumin shannon urement (mass/volume)Ordered By: Charlie Johnson on 02-25-2022 Albumin [Mass/Vol] 3.2 g/dL 3.2-5.0 [facility] Serum or plasma cholesterol in HDL measurement (mass/volume)Ordered By: Charlie Johnson on 02-25-2022 Cholesterol in HDL [Mass/Vol] 50 mg/dL >40 [facility] Comment on above: The drugs N-Acetylcy steine and Metamizole may falsely depress this assay. Reference Range HDL <40 mg/dL Low HDL Cholesterol HDL >or= 60 mg/dL High HDL Cholesterol Serum or plasma cholesterol in VLDL measurement (mass/volume)Ordered By: Charlie Johnson on 02-25-2022 Cholesterol in VLDL [Mass/Vol] 43 mg/dL 5-40 [facility] Serum or plasma low density lipoprotein (LDL) cholesterol measurement (mass/volume)Ordered By: Charlie Johnson on 02-25-2022 Cholesterol in LDL [Mass/Vol] 63 mg/dL 0-130 [facility] Thin prep Papanicolaou smear with manual screeningOrdered By: Charlie Johnson on 02-25-2022 Thin prep Papanicolaou smear with manual screening 18 U/L 15-37 [facility] Basic Metabolic Panelon 02-17 Calcium [Mass/Vol] 9.2 mg/dL Normal 8.4-10.4 [facility] Comment on above: Performed By: #### B GLU #### [facility] [address] [place], [place] Glucose [Mass/Vol] 170 mg/dL High 70-100 [facility] Comment on above: Performed By: #### B GLU #### [facility] [address] [place], [place] Anion gap [Moles/Vol] 11 Normal [facility] Comment on above: Performed By: #### B GLU #### [facility] [address] [place], [place] CO2 [Moles/Vol] 25 mmol/L Normal 22-30 [facility] Comment on above: Performed By: #### B GLU #### [place] [address] [place], [place] Creatinine [Mass/Vol] 1.21 mg/dL Normal 0.52-1.25 [facility] Comment on above: Performed By: #### B GLU #### [place] [address] [place], [place] GFR/1.73 sq M predicted among blacks MDRD (S/P/Bld) [Vol rate/Area] 53.5 mL/min/{1.73_m2} Normal >60 [facility] Comment on above: Performed By: #### B GLU #### [place] [address] [place], [place] GFR/1.73 sq M predicted among non-blacks MDRD (S/P/Bld) [Vol rate/Area] 44.1 mL/min/{1.73_m2} Normal >60 [facility] Comment on above: Result Comment: Sour ce- MDRD equation with creatinine calibration to IDMS(NKDEP) eGFR not recommended for drug dose adjustment Performed By: #### B GLU #### [facility] [address] [place], [place] Urea nitrogen [Mass/Vol] 28 mg/dL High 7-20 [facility] Comment on above: Performed By: #### B GLU #### [place] [address] [place] [address] Chloride [Moles/Vol] 102 mmol/L Normal 98-107 [facility] Comment on above: Performed By: #### B GLU #### [place] [address] [place], [place] Potassium [Moles/Vol] 4.6 mmol/L Normal 3.5-5.1 [facility] Comment on above: Performed By: #### B GLU #### [place] [address] [place], [place] Sodium [Moles/Vol] 138 mmol/L Normal 135-145 [facility] Comment on above: Performed By: #### B GLU #### [place] [address] [place], [place] Anion gap [Moles/Vol] 11 mmol/L [place], [place] Calcium [Mass/Vol] 9.2 mg/dL 8.4 - 10. 4 mg/dL [place] Chloride [Moles/Vol] 102 mmol/L 98 - 10 7 mmol/L [place] CO2 [Moles/Vol] 25 mmol/L 22 - 30 mmol/L [place] Creatinine [Mass/Vol] 1.21 mg/dL 0.52 - 1.25 mg/dL [place] EGFR IF NonAfrican [place] 44.1 mL/min >60 [place] Comment on above: Source- MDRD equatio n with creatinine calibration to IDMS(NKDEP) eGFR not recommended for drug dose adjustment GFR/1.73 sq M predicted among blacks MDRD (S/P/Bld) [Vol rate/Area] 53.5 mL/min/{1.73_m2} >60 [place] Glucose [Mass/Vol] 170 mg/dL High 70 - 100 mg/dL [place] Interpretation and review of laboratory results Abnormal [place] Potassium [Moles/Vol] 4.6 mmol/L 3.5 - 5.1 mmol/L [place] Sodium [Moles/Vol] 138 mmol/L 135 - 145 mmol/L [place] Urea nitrogen [Mass/Vol] 28 mg/dL High 7 - 20 mg/dL [place] Test Performed by [facility], [address] [place] [id number] [place], [place] CBCon 03-03-2019 Erythrocyte distribution width (RBC) [Ratio] 13.1 % 11.5 - 14.5 % [place] Hematocrit (Bld) [Volume fraction] 32.0 % Low 35 - 47 % [place] Hemoglobin (Bld) [Mass/Vol] 10.6 g/dL Low 11.7 - 16 g/dL [place] Interpretation and review of laboratory results Abnormal [place] MCH (RBC) [Entitic mass] 30.4 pg 26 - 34 pg [place] MCHC (RBC) [Mass/Vol] 33.1 % 32 - 36 % [place] MCV (RBC) [Entitic vol] 91.7 fL 79 - 98 fL [place] Platelet mean volume (Bld) [Entitic vol] 9.4 fL 7.4 - 10.4 fL [place] Platelets (Bld) [#/Vol] 201 10*3/uL 140 - 440 10*3/uL [place] RBC (Bld) [#/Vol] 3.49 10*6/uL Low 3.8 - 5.2 10*6/uL [place] WBC (Bld) [#/Vol] 16.2 10*3/uL High 3.6 - 10.7 10*3/uL [place] Test Performed by [facility], [address] [place] [address] [place] CR Chest Portableon 03-03-20 19 CR Chest Portable Patient Name: CHRISTY FRANCIS Diagnostic Radiology Exam Date/Time 03/03/2019 05:56:23 EST Exam CR Chest Portable Ordering Physician GRANT TAYLOR Accession Number [id number] CPT4 Codes 97104 () Reason For Exam POST OP OPEN HEART SOB Report CHEST - PORTABLE: CLINICAL INDICATION: Follow-up for surgery TECHNIQUE: Portable AP COMPARISON: One day ago FINDINGS: Life support devices: Endotracheal tube, nasogastric tube and right central venous catheter in adequate position Heart/Mediastinum: Unchanged Lungs/Pleura: Atelectasis is noted at the left lung base. There is no other consolidation or pneumothorax. Costophrenic angles are sharp. IMPRESSION: Atelectasis of left lung base. No new abnormality. Report Dictated on Workstation: [id number] Final Dictated: 03/03/2019 6:46 am Dictating Physician: MD SOLORZANO JEFFREY Signed Date and Time: 03/03/2019 6:46 am Signed by: MD SOLORZANO JEFFREY Transcribed Date and Time: 03/03/2019 6:46 Normal [facility] Glucose,Bedsideon 03-03-2019 Glucose [Mass/Vol] 220 mg/dL High 70-100 [facility] Comment on above: Result Comment: Test performed by glucose meter. Results may be 10%-15% lower than serum/plasma values. (CLIA ID [id number]) Performed By: #### B GLU #### [facility] [address] [place], [place] Glucose [Mass/Vol] 224 mg/dL High 70-100 [facility] Comment on above: Result Comment: Test performed by glucose meter. Results may be 10%-15% lower than serum/plasma values. (CLIA ID [id number]) Performed By: #### B GLU #### [facility] [address] [place], [place] Hemogramon 03-03-2019 Erythrocyte distribution width (RBC) [Ratio] 13.1 % Normal 11.5-14.5 [facility] Comment on above: Performed By: #### B GLU #### [facility] [address] [place], [place] Hematocrit (Bld) [Volume fraction] 32.0 % Low 35.0-47.0 [facility] Comment on above: Performed By: #### B GLU #### [place] [address] [place], [place] Hemoglobin (Bld) [Mass/Vol] 10.6 g/dL Low 11.7-16.0 [facility] Comment on above: Performed By: #### B GLU #### [facility] [address] [place], [place] MCH (RBC) [Entitic mass] 30.4 pg Normal 26.0-34.0 [facility] Comment on above: Performed By: #### B GLU #### [facility] [address] [place], [place] MCHC (RBC) [Mass/Vol] 33.1 % Normal 32.0-36.0 [facility] Comment on above: Performed By: #### B GLU #### [facility] [address] [place], [place] MCV (RBC) [Entitic vol] 91.7 fL Normal 79.0-98.0 [facility] Comment on above: Performed By: #### B GLU #### [place] [address] [place], [place] Platelet mean volume (Bld) [Entitic vol] 9.4 fL Normal 7.4-10.4 [facility] Comment on above: Performed By: #### B GLU #### [facility] [address] [place], [place] Platelets (Bld) [#/Vol] 201 10*3/uL Normal 140-440 [facility] Comment on above: Performed By: #### B GLU #### [facility] [address] [place], [place] RBC (Bld) [#/Vol] 3.49 10*6/uL Low 3.80-5.20 [facility] Comment on above: Performed By: #### B GLU #### [facility] [address] [place], [place] WBC (Bld) [#/Vol] 16.2 10*3/uL High 3.6-10.7 [facility] Comment on above: Performed By: #### B GLU #### [facility] [address] [place], [place] POCT Glucoseon 03-03-2019 Glucose [Mass/Vol] 220 mg/dL High 70 - 100 mg/dL [facility] Comment on above: Test performed by gl ucose meter. Results may be 10%-15% lower than serum/plasma values. (CLIA ID [id number]) Interpretation and review of laboratory results Abnormal [facility] [employer] [place], [facility] Test Performed by [facility], [address], [place] [address] [facility] Glucose [Mass/Vol] 224 mg/dL High 70 - 100 mg/dL [facility] Comment on above: Test performed by gl ucose meter. Results may be 10%-15% lower than serum/plasma values. (CLIA ID [id number]) Interpretation and review of laboratory results Abnormal [facility] Test Performed by [facility], [address] [place] [address] [place], [place] XR CHEST PORTABLEon 03-03-20 [facility], [facility] Incoming Radiology Results From [facility] - 03/03/2019 6:48 AM EST Patient Name: CHRISTY FRANCIS ---Diagnostic Radiology--- Exam Date/Time 03/03/2019 05:56:23 EST Exam CR Chest Portable Ordering Physician GRANT TAYLOR Accession Number [id number] CPT4 Codes 57377 () Reason For Exam POST OP OPEN HEART SOB Report CHEST - PORTABLE: CLINICAL INDICATION: Follow-up for surgery TECHNIQUE: Portable AP COMPARISON: One day ago FINDINGS: Life support devices: Endotracheal tube, nasogastric tube and right central venous catheter in adequate position Heart/Mediastinum: Unchanged Lungs/Pleura: Atelectasis is noted at the left lung base. There is no other consolidation or pneumothorax. Costophrenic angles are sharp. IMPRESSION: Atelectasis of left lung base. No new abnormality. Report Dictated on Workstation: [id number] --- Final --- Dictated: 03/03/2019 6:46 am Dictating Physician: MD SOLORZANO JEFFREY Signed Date and Time: 03/03/2019 6:46 am Signed by: MD SOLORZANO JEFFREY Transcribed Date and Time: 03/03/2019 6:46 [facility] Patient Name: CHRISTY FRANCIS ---Diagnostic Radiology--- Exam Date/Time 03/03/2019 05:56:23 EST Exam CR Chest Portable Ordering Physician GRANT TAYLOR Accession Number [id number] CPT4 Codes 36118 () Reason For Exam POST OP OPEN HEART SOB Report CHEST - PORTABLE: CLINICAL INDICATION: Follow-up for surgery TECHNIQUE: Portable AP COMPARISON: One day ago FINDINGS: Life support devices: Endotracheal tube, nasogastric tube and right central venous catheter in adequate position Heart/Mediastinum: Unchanged Lungs/Pleura: Atelectasis is noted at the left lung base. There is no other consolidation or pneumothorax. Costophrenic angles are sharp. IMPRESSION: Atelectasis of left lung base. No new abnormality. Report Dictated on Workstation: [id number] --- Final --- Dictated: 03/03/2019 6:46 am Dictating Physician: MD SOLORZANO JEFFREY Signed Date and Time: 03/03/2019 6:46 am Signed by: MD SOLORZANO JEFFREY Transcribed Date and Time: 03/03/2019 6:46 [place] Basic Metabolic Panelon 02-17 Calcium [Mass/Vol] 9.3 mg/dL Normal 8.4-10.4 [facility] Comment on above: Performed By: #### B GLU #### [address] [place], [place] Anion gap [Moles/Vol] 10 Normal [facility] Comment on above: Performed By: #### B GLU #### [facility] [address] [place], [place] CO2 [Moles/Vol] 22 mmol/L Normal 22-30 [facility] Comment on above: Performed By: #### B GLU #### [facility] [address] [place], [place] Creatinine [Mass/Vol] 1.24 mg/dL Normal 0.52-1.25 [facility] Comment on above: Performed By: #### B GLU #### [facility] [address] [place], [place] GFR/1.73 sq M predicted among blacks MDRD (S/P/Bld) [Vol rate/Area] 52.0 mL/min/{1.73_m2} Normal >60 [facility] Comment on above: Performed By: #### B GLU #### [facility] [address] [place] [address] GFR/1.73 sq M predicted among non-blacks MDRD (S/P/Bld) [Vol rate/Area] 42.9 mL/min/{1.73_m2} Normal >60 [facility] Comment on above: Result Comment: Sour ce- MDRD equation with creatinine calibration to IDMS(NKDEP) eGFR not recommended for drug dose adjustment Performed By: #### B GLU #### [place] [address] [place], [place] Glucose [Mass/Vol] 253 mg/dL High 70-100 [facility] Comment on above: Performed By: #### B GLU #### [place] [address] [place], [place] Urea nitrogen [Mass/Vol] 32 mg/dL High 7-20 [facility] Comment on above: Performed By: #### B GLU #### [place] [address] [place], [place] Chloride [Moles/Vol] 104 mmol/L Normal 98-107 [facility] Comment on above: Performed By: #### B GLU #### [place] [address] [place] [address] Potassium [Moles/Vol] 5.0 mmol/L Normal 3.5-5.1 [facility] Comment on above: Performed By: #### B GLU #### [place] [address] [place], [place] Sodium [Moles/Vol] 135 mmol/L Normal 135-145 [facility] Comment on above: Performed By: #### B GLU #### [place] [address] [place], [place] Anion gap [Moles/Vol] 10 mmol/L [facility] [place], [place] Calcium [Mass/Vol] 9.3 mg/dL 8.4 - 10. 4 mg/dL [facility], [place] Chloride [Moles/Vol] 104 mmol/L 98 - 10 7 mmol/L [place] CO2 [Moles/Vol] 22 mmol/L 22 - 30 mmol/L [place] Creatinine [Mass/Vol] 1.24 mg/dL 0.52 - 1.25 mg/dL [place] EGFR IF NonAfrican [place] 42.9 mL/min >60 [place] Comment on above: Source- MDRD equatio n with creatinine calibration to IDMS(NKDEP) eGFR not recommended for drug dose adjustment GFR/1.73 sq M predicted among blacks MDRD (S/P/Bld) [Vol rate/Area] 52.0 mL/min/{1.73_m2} >60 [place] Glucose [Mass/Vol] 253 mg/dL High 70 - 100 mg/dL [place] Interpretation and review of laboratory results Abnormal [place] Potassium [Moles/Vol] 5.0 mmol/L 3.5 - 5.1 mmol/L [place] Sodium [Moles/Vol] 135 mmol/L 135 - 145 mmol/L [place] Urea nitrogen [Mass/Vol] 32 mg/dL High 7 - 20 mg/dL [place] Test Performed by [facility], [address] [place] [id number] [place] [address] CBCon 03-02-2019 Erythrocyte distribution width (RBC) [Ratio] 13.2 % 11.5 - 14.5 % [place] Hematocrit (Bld) [Volume fraction] 33.8 % Low 35 - 47 % [place] Hemoglobin (Bld) [Mass/Vol] 11.0 g/dL Low 11.7 - 16 g/dL [place] Interpretation and review of laboratory results Abnormal [place] MCH (RBC) [Entitic mass] 30.3 pg 26 - 34 pg [place] MCHC (RBC) [Mass/Vol] 32.6 % 32 - 36 % [place] MCV (RBC) [Entitic vol] 92.7 fL 79 - 98 fL [place] Platelet mean volume (Bld) [Entitic vol] 10.7 fL High 7.4 - 10.4 fL [place] Platelets (Bld) [#/Vol] 169 10*3/uL 140 - 440 10*3/uL [place] RBC (Bld) [#/Vol] 3.65 10*6/uL Low 3.8 - 5.2 10*6/uL [place] WBC (Bld) [#/Vol] 18.8 10*3/uL High 3.6 - 10.7 10*3/uL [place] Test Performed by [facility], [address] [place] [address] [place] CR Chest Portableon 03-02-20 19 CR Chest Portable Patient Name: CHRISTY FRANCIS Diagnostic Radiology Exam Date/Time 03/02/2019 06:07:22 EST Exam CR Chest Portable Ordering Physician GRANT TAYLOR Accession Number [id number] CPT4 Codes 66734 () Reason For Exam POST OP OPEN HEART SOB Report CHEST - PORTABLE: CLINICAL INDICATION: Respiratory distress for follow up TECHNIQUE: Portable AP COMPARISON: One day ago FINDINGS: Life support devices: Right jugular venous sheath is again noted. Left chest tube has been removed and mediastinal drains have been removed Heart/Mediastinum: Unchanged Lungs/Pleura: No new consolidation identified. Left basilar atelectasis is noted. Costophrenic angles are sharp. IMPRESSION: Atelectasis at the left lung base. Report Dictated on Workstation: [id number] Final Dictated: 03/02/2019 6:14 am Dictating Physician: MD SOLORZANO JEFFREY Signed Date and Time: 03/02/2019 6:16 am Signed by: MD SOLORZANO JEFFREY Transcribed Date and Time: 03/02/2019 6:14 Normal [facility] Echocardiogram transesophage pedro pablo 03-02-2019 Brian, [facility] Incoming Cardiology Results From [facility] - 03/02/2019 8:47 AM EST TRANSESOPHAGEAL ECHOCARDIOGRAM Intraoperative-Pre Pump Only PATIENT: Christy Francis STUDY DATE: 02/27/2019 : 1950 AGE: 69 HT/WT: 154.9 cm (61 80 kg in) (176 lb) GENDER: F BP: 98 / 57 LOCATION: [facility] PATIENT Inpatient [facility] STATUS: *ORDERING PHYSICIAN: * Ronda Carmona *READING PHYSICIAN: * Michi Dewitt, *CANVAS CUTTER: * Janice Trivedi MD [facility] INDICATIONS: CABG. CONCLUSIONS SUMMARY: 1. Left ventricle: Systolic function is moderately decreased. The estimated ejection fraction is 35-40%. 2. No significant valvular abnormalities. STUDY DATA: Operative transesophageal echocardiogram. Procedure: The procedure was performed with the patient intubated under general anesthesia on the operating table. A complete pre-operative DONNELL was performed. Image quality was good. A transesophageal probe was inserted by the anesthesiologistwithout difficulty. Complete 2D, complete spectral Doppler, and color flow Doppler images were acquired and archived for permanent storage and are available for subsequent review. Study status: Routine. Patient status: Inpatient. Location: Procedure room. Administered medications: General anesthesia given with Isoflurane. FINDINGS LEFT VENTRICLE: The cavity size is normal. Wall thickness is moderately increased. Systolic function is moderately decreased. The estimated ejection fraction is 35-40%. RIGHT VENTRICLE: The cavity size is normal. Systolic function is normal. VENTRICULAR SEPTUM: There is no evidence of a ventricular septal defect. LEFT ATRIUM: The atrium is normal in size. There is no evidence of a thrombus in the atrial cavity or appendage. No spontaneous echo contrast is observed. The appendage is of normal size. Emptying velocity is normal. RIGHT ATRIUM: The atrium is normal in size. ATRIAL SEPTUM: No evidence of patent foramen ovale or atrial septal defect by color flow doppler. MITRAL VALVE: Mildly thickened leaflets. Leaflet separation is normal. Doppler: There is mild, 1+ regurgitation. AORTIC VALVE: Structurally normal valve. Trileaflet. Cusp separation is normal. Doppler: There is no stenosis. There is no significant regurgitation. TRICUSPID VALVE: Structurally normal valve. Leaflet separation is normal. Doppler: There is trivial, less than 1+ regurgitation. PULMONIC VALVE: No thickening. Cusp separation is normal. Doppler: There is no regurgitation. AORTA: The aortic root and ascending aorta are normal in size. The visualized portions of the arch and descending aorta are normal in size. The aorta is moderately diseased. There is no evidence for aneurysm. There is no evidence for dissection. Aortic root: The aortic root is not dilated. PULMONARY ARTERY: The main pulmonary artery is normal in size. PERICARDIUM: There is no pericardial effusion. Electronically signed by Michi Dewitt MD 03/02/2019 08:46 Prior Signatures: [facility], [place] TRANSESOPHAGEAL ECHOCARDIOGRAM Intraoperative-Pre Pump Only PATIENT: Christy Francis STUDY DATE: 02/27/2019 : 1950 AGE: 69 HT/WT: 154.9 cm (61 80 kg in) (176 lb) GENDER: F BP: 98 / 57 LOCATION: [facility] PATIENT Inpatient [facility] STATUS: *ORDERING PHYSICIAN: * Ronda Carmona *READING PHYSICIAN: * Michi Dewitt, *CANVAS CUTTER: * Janice Trivedi MD [facility] INDICATIONS: CABG. CONCLUSIONS SUMMARY: 1. Left ventricle: Systolic function is moderately decreased. The estimated ejection fraction is 35-40%. 2. No significant valvular abnormalities. STUDY DATA: Operative transesophageal echocardiogram. Procedure: The procedure was performed with the patient intubated under general anesthesia on the operating table. A complete pre-operative DONNELL was performed. Image quality was good. A transesophageal probe was inserted by the anesthesiologistwithout difficulty. Complete 2D, complete spectral Doppler, and color flow Doppler images were acquired and archived for permanent storage and are available for subsequent review. Study status: Routine. Patient status: Inpatient. Location: Procedure room. Administered medications: General anesthesia given with Isoflurane. FINDINGS LEFT VENTRICLE: The cavity size is normal. Wall thickness is moderately increased. Systolic function is moderately decreased. The estimated ejection fraction is 35-40%. RIGHT VENTRICLE: The cavity size is normal. Systolic function is normal. VENTRICULAR SEPTUM: There is no evidence of a ventricular septal defect. LEFT ATRIUM: The atrium is normal in size. There is no evidence of a thrombus in the atrial cavity or appendage. No spontaneous echo contrast is observed. The appendage is of normal size. Emptying velocity is normal. RIGHT ATRIUM: The atrium is normal in size. ATRIAL SEPTUM: No evidence of patent foramen ovale or atrial septal defect by color flow doppler. MITRAL VALVE: Mildly thickened leaflets. Leaflet separation is normal. Doppler: There is mild, 1+ regurgitation. AORTIC VALVE: Structurally normal valve. Trileaflet. Cusp separation is normal. Doppler: There is no stenosis. There is no significant regurgitation. TRICUSPID VALVE: Structurally normal valve. Leaflet separation is normal. Doppler: There is trivial, less than 1+ regurgitation. PULMONIC VALVE: No thickening. Cusp separation is normal. Doppler: There is no regurgitation. AORTA: The aortic root and ascending aorta are normal in size. The visualized portions of the arch and descending aorta are normal in size. The aorta is moderately diseased. There is no evidence for aneurysm. There is no evidence for dissection. Aortic root: The aortic root is not dilated. PULMONARY ARTERY: The main pulmonary artery is normal in size. PERICARDIUM: There is no pericardial effusion. Electronically signed by Michi Dewitt MD 03/02/2019 08:46 Prior Signatures: [place], [place] Glucose,Bedsideon 03-02-2019 Glucose [Mass/Vol] 168 mg/dL High 70-100 [facility] Comment on above: Result Comment: Test performed by glucose meter. Results may be 10%-15% lower than serum/plasma values. (CLIA ID [id number]) Performed By: #### B GLU #### [address] [place] [address] Glucose [Mass/Vol] 249 mg/dL High 70-100 [facility] Comment on above: Result Comment: Test performed by glucose meter. Results may be 10%-15% lower than serum/plasma values. (CLIA ID [id number]) Performed By: #### B GLU #### [address] [place] [address] Glucose [Mass/Vol] 324 mg/dL High 70-100 [facility] Comment on above: Result Comment: Test performed by glucose meter. Results may be 10%-15% lower than serum/plasma values. (CLIA ID [id number]) Performed By: #### B GLU #### [facility] [address] [place], [place] Glucose [Mass/Vol] 347 mg/dL High 70-100 [facility] Comment on above: Result Comment: Test performed by glucose meter. Results may be 10%-15% lower than serum/plasma values. (CLIA ID [id number]) Performed By: #### B GLU #### [address] [place], [place] Hemogramon 03-02-2019 Erythrocyte distribution width (RBC) [Ratio] 13.2 % Normal 11.5-14.5 [facility] Comment on above: Performed By: #### B GLU #### [address] [place], [place] Hematocrit (Bld) [Volume fraction] 33.8 % Low 35.0-47.0 [facility] Comment on above: Performed By: #### B GLU #### [address] [place], [place] Hemoglobin (Bld) [Mass/Vol] 11.0 g/dL Low 11.7-16.0 [facility] Comment on above: Performed By: #### B GLU #### [address] [place], [place] MCH (RBC) [Entitic mass] 30.3 pg Normal 26.0-34.0 [facility] Comment on above: Performed By: #### B GLU #### [address] [place], [place] MCHC (RBC) [Mass/Vol] 32.6 % Normal 32.0-36.0 [facility] Comment on above: Performed By: #### B GLU #### [address] MCV (RBC) [Entitic vol] 92.7 fL Normal 79.0-98.0 [facility] Comment on above: Performed By: #### B GLU #### [address] [place], [place] Platelet mean volume (Bld) [Entitic vol] 10.7 fL High 7.4-10.4 [facility] Comment on above: Performed By: #### B GLU #### [facility] [address] [place], [place] Platelets (Bld) [#/Vol] 169 10*3/uL Normal 140-440 [facility] Comment on above: Performed By: #### B GLU #### [facility] [address] [place], [place] RBC (Bld) [#/Vol] 3.65 10*6/uL Low 3.80-5.20 [facility] Comment on above: Performed By: #### B GLU #### [facility] [address] [place], [place] WBC (Bld) [#/Vol] 18.8 10*3/uL High 3.6-10.7 [facility] Comment on above: Performed By: #### B GLU #### [facility] [address] [place], [place] POCT Glucoseon 03-02-2019 Glucose [Mass/Vol] 168 mg/dL High 70 - 100 mg/dL [place] Comment on above: Test performed by gl ucose meter. Results may be 10%-15% lower than serum/plasma values. (CLIA ID [id number]) Interpretation and review of laboratory results Abnormal [facility] [place] [place] Test Performed by [facility], [place] [address] [place], [place] Glucose [Mass/Vol] 249 mg/dL High 70 - 100 mg/dL [place] Comment on above: Test performed by gl ucose meter. Results may be 10%-15% lower than serum/plasma values. (CLIA ID [id number]) Interpretation and review of laboratory results Abnormal [facility] [place] Test Performed by [facility], [place] [address] [place] Glucose [Mass/Vol] 324 mg/dL High 70 - 100 mg/dL [place] Comment on above: Test performed by gl ucose meter. Results may be 10%-15% lower than serum/plasma values. (CLIA ID [id number]) Interpretation and review of laboratory results Abnormal [facility] Test Performed by [employer] [facility], [address] [place] [facility] [place] [address] [facility] Glucose [Mass/Vol] 347 mg/dL High 70 - 100 mg/dL [facility] Comment on above: Test performed by gl ucose meter. Results may be 10%-15% lower than serum/plasma values. (CLIA ID [id number]) Interpretation and review of laboratory results Abnormal [facility] [employer], CEM Test Performed by [facility], [address] [place] [address] [place] XR CHEST PORTABLEon 03-02-20 [facility] Incoming Radiology Results From [facility] - 03/02/2019 6:17 AM EST Patient Name: CHRISTY FRANCIS ---Diagnostic Radiology--- Exam Date/Time 03/02/2019 06:07:22 EST Exam CR Chest Portable Ordering Physician GRANT TAYLOR Accession Number [id number] CPT4 Codes 36491 () Reason For Exam POST OP OPEN HEART SOB Report CHEST - PORTABLE: CLINICAL INDICATION: Respiratory distress for follow up TECHNIQUE: Portable AP COMPARISON: One day ago FINDINGS: Life support devices: Right jugular venous sheath is again noted. Left chest tube has been removed and mediastinal drains have been removed Heart/Mediastinum: Unchanged Lungs/Pleura: No new consolidation identified. Left basilar atelectasis is noted. Costophrenic angles are sharp. IMPRESSION: Atelectasis at the left lung base. Report Dictated on Workstation: [id number] --- Final --- Dictated: 03/02/2019 6:14 am Dictating Physician: MD SOLORZANO JEFFREY Signed Date and Time: 03/02/2019 6:16 am Signed by: MD SOLORZANO JEFFREY Transcribed Date and Time: 03/02/2019 6:14 [facility] CEM Patient Name: CHRISTY FRANCIS ---Diagnostic Radiology--- Exam Date/Time 03/02/2019 06:07:22 EST Exam CR Chest Portable Ordering Physician TAYLORMARY ANNE POZOIC Accession Number [id number] CPT4 Codes 13344 () Reason For Exam POST OP OPEN HEART SOB Report CHEST - PORTABLE: CLINICAL INDICATION: Respiratory distress for follow up TECHNIQUE: Portable AP COMPARISON: One day ago FINDINGS: Life support devices: Right jugular venous sheath is again noted. Left chest tube has been removed and mediastinal drains have been removed Heart/Mediastinum: Unchanged Lungs/Pleura: No new consolidation identified. Left basilar atelectasis is noted. Costophrenic angles are sharp. IMPRESSION: Atelectasis at the left lung base. Report Dictated on Workstation: [id number] --- Final --- Dictated: 03/02/2019 6:14 am Dictating Physician: MD SOLORZANO JEFFREY Signed Date and Time: 03/02/2019 6:16 am Signed by: MD SOLORZANO JEFFREY Transcribed Date and Time: 03/02/2019 6:14 [place], [place] Basic Metabolic Panelon 11- Calcium [Mass/Vol] 8.9 mg/dL Normal 8.4-10.4 [facility] Comment on above: Performed By: #### B GLU #### [address] [place], [place] Glucose [Mass/Vol] 293 mg/dL High 70-100 [facility] Comment on above: Performed By: #### B GLU #### [address] [place], [place] Anion gap [Moles/Vol] 11 Normal [facility] Comment on above: Performed By: #### B GLU #### [facility] [address] [place], [place] CO2 [Moles/Vol] 20 mmol/L Low 22-30 [facility] Comment on above: Performed By: #### B GLU #### [address] [place], [place] Creatinine [Mass/Vol] 1.40 mg/dL High 0.52-1.25 [facility] Comment on above: Performed By: #### B GLU #### [address] [place], [place] GFR/1.73 sq M predicted among blacks MDRD (S/P/Bld) [Vol rate/Area] 45.2 mL/min/{1.73_m2} Normal >60 [facility] Comment on above: Performed By: #### B GLU #### [address] [place], [place] GFR/1.73 sq M predicted among non-blacks MDRD (S/P/Bld) [Vol rate/Area] 37.3 mL/min/{1.73_m2} Normal >60 [facility] Comment on above: Result Comment: Sour ce- MDRD equation with creatinine calibration to IDMS(NKDEP) eGFR not recommended for drug dose adjustment Performed By: #### B GLU #### [address] [place], [place] Urea nitrogen [Mass/Vol] 33 mg/dL High 7-20 [facility] Comment on above: Performed By: #### B GLU #### [address] [place], [place] Chloride [Moles/Vol] 102 mmol/L Normal 98-107 [facility] Comment on above: Performed By: #### B GLU #### [address] [place], [place] Potassium [Moles/Vol] 5.5 mmol/L High 3.5-5.1 [facility] Comment on above: Performed By: #### B GLU #### [address] [place], [place] Sodium [Moles/Vol] 132 mmol/L Low 135-145 [facility] Comment on above: Performed By: #### B GLU #### [address] [place], [place] Anion gap [Moles/Vol] 11 mmol/L [facility], [place] Calcium [Mass/Vol] 8.9 mg/dL 8.4 - 10. 4 mg/dL [facility], [place] Chloride [Moles/Vol] 102 mmol/L 98 - 10 7 mmol/L [facility], [place] CO2 [Moles/Vol] 20 mmol/L Low 22 - 30 mmol/L [place] Creatinine [Mass/Vol] 1.4 mg/dL High 0.52 - 1.25 mg/dL [place] EGFR IF NonAfrican [place] 37.3 mL/min >60 [place] Comment on above: Source- MDRD equatio n with creatinine calibration to IDMS(NKDEP) eGFR not recommended for drug dose adjustment GFR/1.73 sq M predicted among blacks MDRD (S/P/Bld) [Vol rate/Area] 45.2 mL/min/{1.73_m2} >60 [place] Glucose [Mass/Vol] 293 mg/dL High 70 - 100 mg/dL [place] Interpretation and review of laboratory results Abnormal [place] Potassium [Moles/Vol] 5.5 mmol/L High 3.5 - 5.1 mmol/L [place] Sodium [Moles/Vol] 132 mmol/L Low 135 - 145 mmol/L [place] Urea nitrogen [Mass/Vol] 33 mg/dL High 7 - 20 mg/dL [place] Test Performed by [facility], [address] [place] [address] [place] Calcium [Mass/Vol] 9.1 mg/dL Normal 8.4-10.4 [facility] Comment on above: Performed By: #### H EMONicole, BMP3, MG3 ####[facility] [place] [address] Anion gap [Moles/Vol] 10 Normal [facility] Comment on above: Performed By: #### H EMOG, BMP3, MG3 ####[address] [place] [address] CO2 [Moles/Vol] 22 mmol/L Normal 22-30 [facility] Comment on above: Performed By: #### H EMOG, BMP3, MG3 ####[address] [place] [address] Creatinine [Mass/Vol] 1.63 mg/dL High 0.52-1.25 [facility] Comment on above: Performed By: #### H AUSTIN BMP3, MG3 ####[address] [place] [address] GFR/1.73 sq M predicted among blacks MDRD (S/P/Bld) [Vol rate/Area] 37.9 mL/min/{1.73_m2} Normal >60 [facility] Comment on above: Performed By: #### H AUSTIN BMP3, MG3 ####[address] [place] [address] GFR/1.73 sq M predicted among non-blacks MDRD (S/P/Bld) [Vol rate/Area] 31.3 mL/min/{1.73_m2} Normal >60 [facility] Comment on above: Result Comment: Sour ce- MDRD equation with creatinine calibration to IDMS(NKDEP) eGFR not recommended for drug dose adjustment Performed By: #### H AUSTIN BMP3, MG3 ####[address] [place], [place] Glucose [Mass/Vol] 90 mg/dL Normal 70-100 [facility] Comment on above: Performed By: #### Papito AVILA BMP3, MG3 ####[address] [place] [address] Urea nitrogen [Mass/Vol] 32 mg/dL High 7-20 [facility] Comment on above: Performed By: #### Papito AVILA BMP3, MG3 ####[facility] [address] [place] [address] Chloride [Moles/Vol] 108 mmol/L High 98-107 [facility] Comment on above: Performed By: #### H AUSTIN BMP3, MG3 ####[address] [place] [address] Potassium [Moles/Vol] 5.7 mmol/L High 3.5-5.1 [facility] Comment on above: Performed By: #### Papito AVILA BMP3, MG3 ####[address] [place] [address] Sodium [Moles/Vol] 140 mmol/L Normal 135-145 [facility] Comment on above: Performed By: #### H SANGEETA AVILA3, MG3 ####[facility] [place] [address] Anion gap [Moles/Vol] 10 mmol/L [place] Calcium [Mass/Vol] 9.1 mg/dL 8.4 - 10. 4 mg/dL [place] Chloride [Moles/Vol] 108 mmol/L High 98 - 10 7 mmol/L [place] CO2 [Moles/Vol] 22 mmol/L 22 - 30 mmol/L [place] Creatinine [Mass/Vol] 1.63 mg/dL High 0.52 - 1.25 mg/dL [place] EGFR IF NonAfrican [place] 31.3 mL/min >60 [place] Comment on above: Source- MDRD equatio n with creatinine calibration to IDMS(NKDEP) eGFR not recommended for drug dose adjustment GFR/1.73 sq M predicted among blacks MDRD (S/P/Bld) [Vol rate/Area] 37.9 mL/min/{1.73_m2} >60 [place] Glucose [Mass/Vol] 90 mg/dL 70 - 100 mg/dL [place] Interpretation and review of laboratory results Abnormal [place] Potassium [Moles/Vol] 5.7 mmol/L High 3.5 - 5.1 mmol/L [place] Sodium [Moles/Vol] 140 mmol/L 135 - 145 mmol/L [place] Urea nitrogen [Mass/Vol] 32 mg/dL High 7 - 20 mg/dL [place] CBCon 03-01-2019 Erythrocyte distribution width (RBC) [Ratio] 13.5 % 11.5 - 14.5 % [place] Hematocrit (Bld) [Volume fraction] 34.2 % Low 35 - 47 % [place] Hemoglobin (Bld) [Mass/Vol] 11.1 g/dL Low 11.7 - 16 g/dL [place] Interpretation and review of laboratory results Abnormal [place] MCH (RBC) [Entitic mass] 30.1 pg 26 - 34 pg [place] MCHC (RBC) [Mass/Vol] 32.4 % 32 - 36 % [place] MCV (RBC) [Entitic vol] 92.9 fL 79 - 98 fL [place] Platelet mean volume (Bld) [Entitic vol] 9.8 fL 7.4 - 10.4 fL [place] Platelets (Bld) [#/Vol] 151 10*3/uL 140 - 440 10*3/uL [place] RBC (Bld) [#/Vol] 3.68 10*6/uL Low 3.8 - 5.2 10*6/uL [place] WBC (Bld) [#/Vol] 17.8 10*3/uL High 3.6 - 10.7 10*3/uL [place] CR Chest Portableon 03-01-20 19 CR Chest Portable Patient Name: CHRISTY FRANCIS Diagnostic Radiology Exam Date/Time 03/01/2019 07:10:13 EST Exam CR Chest Portable Ordering Physician GRANT TAYLOR Accession Number [id number] CPT4 Codes 11977 () Reason For Exam sob Report CLINICAL INFORMATION: Shortness of breath. Status post open heart surgery. CHEST X-RAY, PORTABLE, 0537 hours: An AP portable view is compared to the prior examination of previous day. There is no change in the mediastinal or left lower hemithorax chest tubes or right internal jugular [place] introducer sheath. There is stable slightly limited lung volumes. No pneumothorax or other acute process or interval change identified. Report Dictated on Final Dictated: 03/01/2019 7:23 am Dictating Physician: MD JIMENEZ HARLAN Signed Date and Time: 03/01/2019 7:25 am Signed by: MD JIMENEZ HARLAN Transcribed Date and Time: 03/01/2019 7:23 Normal [facility] EKG 12 leadon 03-01-2019 [facility] Test Date: 2019-03-01 Pat Name: Christy Francis Department: 1[facility] Gender: F Chief Crna: MISAEL : 1950 Requested By: GRANT TAYLOR Order Number: [id number] Reading MD: Saray Yates Measurements Intervals [place] Rate: 97 P: 62 TN: 139 QRS: 28 QRSD: 67 T: 83 QT: 327 QTc: 416 Interpretive Statements Sinus rhythm Inferior infarct, acute Electronically Signed On 03-01-2019 9:20:04 EST by [facility], CEM Brian, [facility] Incoming Cardiology Results From [facility] - 03/01/2019 9:21 AM EST [facility] Test Date: 2019-03-01 Pat Name: Christy Francis Department: 1[facility] Room: [facility] Gender: F Chief Crna: MISAEL : 1950 Requested By: GRANT TAYLOR Order Number: [id number] Reading MD: Saray Yates Measurements Intervals [place] Rate: 97 P: 62 TN: 139 QRS: 28 QRSD: 67 T: 83 QT: 327 QTc: 416 Interpretive Statements Sinus rhythm Inferior infarct, acute Electronically Signed On 03-01-2019 9:20:04 EST [facility] Glucose,Bedsideon 03-01-2019 Glucose [Mass/Vol] 334 mg/dL High 70-100 [facility] Comment on above: Result Comment: Test performed by glucose meter. Results may be 10%-15% lower than serum/plasma values. (CLIA ID [id number]) Performed By: #### B GLU #### [facility] [address] [place] [address] Glucose [Mass/Vol] 357 mg/dL High 70-100 [facility] Comment on above: Result Comment: Test performed by glucose meter. Results may be 10%-15% lower than serum/plasma values. (CLIA ID [id number]) Performed By: #### B GLU #### [employer] [address] [place] [address] Glucose [Mass/Vol] 92 mg/dL Normal 70-100 [facility] Comment on above: Result Comment: Test performed by glucose meter. Results may be 10%-15% lower than serum/plasma values. (CLIA ID [id number]) Performed By: #### B GLU ####[address] [place] [address] Glucose [Mass/Vol] 85 mg/dL Normal 70-100 [facility] Comment on above: Result Comment: Test performed by glucose meter. Results may be 10%-15% lower than serum/plasma values. (CLIA ID [id number]) Performed By: #### B GLU #### [facility] [address] [place] [address] Glucose [Mass/Vol] 95 mg/dL Normal 70-100 [facility] Comment on above: Result Comment: Test performed by glucose meter. Results may be 10%-15% lower than serum/plasma values. (CLIA ID [id number]) Performed By: #### B GLU #### [facility] [address] [facility] [place] [address] Glucose [Mass/Vol] 111 mg/dL High 70-100 [facility] Comment on above: Result Comment: Test performed by glucose meter. Results may be 10%-15% lower than serum/plasma values. (CLIA ID [id number]) Performed By: #### B GLU #### [facility] [address] [place] [address] Glucose [Mass/Vol] 149 mg/dL High 70-100 [facility] Comment on above: Result Comment: Test performed by glucose meter. Results may be 10%-15% lower than serum/plasma values. (CLIA ID [id number]) Performed By: #### B GLU #### [facility] [address] [facility] [place] [address] Glucose [Mass/Vol] 153 mg/dL High 70-100 [facility] Comment on above: Result Comment: Test performed by glucose meter. Results may be 10%-15% lower than serum/plasma values. (CLIA ID [id number]) Performed By: #### B GLU #### [facility] [address] [facility] [place] [address] Glucose [Mass/Vol] 165 mg/dL High 70-100 [facility] Comment on above: Result Comment: Test performed by glucose meter. Results may be 10%-15% lower than serum/plasma values. (CLIA ID [id number]) Performed By: #### B GLU #### [facility] [address] [facility] [place] [address] Glucose [Mass/Vol] 150 mg/dL High 70-100 [facility] Comment on above: Result Comment: Test performed by glucose meter. Results may be 10%-15% lower than serum/plasma values. (CLIA ID [id number]) Performed By: #### B GLU #### [facility] [address] [facility] [place] [address] Glucose [Mass/Vol] 172 mg/dL High 70-100 [facility] Comment on above: Result Comment: Test performed by glucose meter. Results may be 10%-15% lower than serum/plasma values. (CLIA ID [id number]) Performed By: #### B GLU #### [facility] [address] [facility] [place] [address] Glucose [Mass/Vol] 112 mg/dL High 70-100 [facility] Comment on above: Result Comment: Test performed by glucose meter. Results may be 10%-15% lower than serum/plasma values. (CLIA ID [id number]) Performed By: #### B GLU ####[facility] [id number] [place] [address] Glucose [Mass/Vol] 96 mg/dL Normal 70-100 [facility] Comment on above: Result Comment: Test performed by glucose meter. Results may be 10%-15% lower than serum/plasma values. (CLIA ID [id number]) Performed By: #### B GLU ####[address] [facility] [address] Glucose [Mass/Vol] 95 mg/dL Normal 70-100 [facility] Comment on above: Result Comment: Test performed by glucose meter. Results may be 10%-15% lower than serum/plasma values. (CLIA ID [id number]) Performed By: #### B GLU ####[facility] [address] [place], [place] Glucose [Mass/Vol] 136 mg/dL High 70-100 [facility] Comment on above: Result Comment: Test performed by glucose meter. Results may be 10%-15% lower than serum/plasma values. (CLIA ID [id number]) Performed By: #### B GLU ####[facility] [address] [place], [place] Glucose [Mass/Vol] 162 mg/dL High 70-100 [facility] Comment on above: Result Comment: Test performed by glucose meter. Results may be 10%-15% lower than serum/plasma values. (CLIA ID [id number]) Performed By: #### B GLU ####[facility] [address] [place], [place] Hematologyon 03-01-2019 ABO and Rh group Nom (Bld) 6200 [place], [place] Hemogramon 03-01-2019 Erythrocyte distribution width (RBC) [Ratio] 13.5 % Normal 11.5-14.5 [facility] Comment on above: Performed By: #### H EMOG, BMP3, MG3 ####[facility] [id number] [place], [place] Hematocrit (Bld) [Volume fraction] 34.2 % Low 35.0-47.0 [facility] Comment on above: Performed By: #### H EMOG, BMP3, MG3 ####[employer] [place], [place] Hemoglobin (Bld) [Mass/Vol] 11.1 g/dL Low 11.7-16.0 [facility] Comment on above: Performed By: #### H EMOG, BMP3, MG3 ####[facility] [id number] [place], [place] MCH (RBC) [Entitic mass] 30.1 pg Normal 26.0-34.0 [facility] Comment on above: Performed By: #### H AUSTIN BMP3, MG3 ####[address] MCHC (RBC) [Mass/Vol] 32.4 % Normal 32.0-36.0 [facility] Comment on above: Performed By: #### Papito AVILA BMP3, MG3 ####[address] MCV (RBC) [Entitic vol] 92.9 fL Normal 79.0-98.0 [facility] Comment on above: Performed By: #### H AUSTIN BMP3, MG3 ####[address] Platelet mean volume (Bld) [Entitic vol] 9.8 fL Normal 7.4-10.4 [facility] Comment on above: Performed By: #### Papito AVILA BMP3, MG3 ####[address] Platelets (Bld) [#/Vol] 151 10*3/uL Normal 140-440 [facility] Comment on above: Performed By: #### Papito AVILA BMP3, MG3 ####[address] RBC (Bld) [#/Vol] 3.68 10*6/uL Low 3.80-5.20 [facility] Comment on above: Performed By: #### H AUSTIN BMP3, MG3 ####[address] [address] WBC (Bld) [#/Vol] 17.8 10*3/uL High 3.6-10.7 [facility] Comment on above: Performed By: #### Papito EMONicole, BMP3, MG3 ####[address] Leukodepleted Red Cellson Leukodepleted Red Cells Leukodepleted Red Cells: [id number] released 03/01/19 07:45 JMV Unit Blood Type: A Unit Blood Rh: POS Blood Product Code: AS1 Unit Number: [id number] Unit Status: released Barcoded Unit Number: =[id number] Barcoded Product Code: = Barcoded ABO/Rh: =%6200 Unit Expiration: Leukodepleted Red Cells: [id number] released 03/01/19 07:45 JMV Unit Blood Type: A Unit Blood Rh: POS Blood Product Code: AS1 Unit Number: [id number] Unit Status: released Barcoded Unit Number: =[id number] Barcoded Product Code: = Barcoded ABO/Rh: =%6200 Unit Expiration: Normal [facility] Comment on above: Performed By: #### H EMOG, CMP3M #### [facility] [address] [place] [address] Magnesiumon 03-01-2019 Magnesium [Mass/Vol] 2.1 mg/dL Normal 1.6-2.3 [facility] Comment on above: Performed By: #### H EMOG, BMP3, MG3 ####[facility] [place] [address] Magnesium [Mass/Vol] 2.1 mg/dL 1.6 - 2 .3 mg/dL [place] Metabolic Panelon 03-01-2019 Sodium [Moles/Vol] [id number] [place] Sodium [Moles/Vol] [id number] mmol/L [place] Sodium [Moles/Vol] released [place] Otheron 03-01-2019 Test Performed by [id number] [place] [address] Test Performed by [id number] [place] [address] POCT Glucoseon 03-01-2019 Glucose [Mass/Vol] 334 mg/dL High 70 - 100 mg/dL [place] Comment on above: Test performed by ucose meter. Results may be 10%-15% lower than serum/plasma values. (CLIA ID [id number]) Interpretation and review of laboratory results Abnormal [facility] Test Performed by [facility], [address] [place] [address] [facility] Glucose [Mass/Vol] 357 mg/dL High 70 - 100 mg/dL [facility] [place] Comment on above: Test performed by gl ucose meter. Results may be 10%-15% lower than serum/plasma values. (CLIA ID [id number]) Interpretation and review of laboratory results Abnormal [facility] Test Performed by [facility], [address] [place] [address] [facility] Glucose [Mass/Vol] 85 mg/dL 70 - 100 mg/dL [facility] Comment on above: Test performed by gl ucose meter. Results may be 10%-15% lower than serum/plasma values. (CLIA ID [id number]) Test Performed by [employer] [facility], [address] [place] [address] [facility] Glucose [Mass/Vol] 95 mg/dL 70 - 100 mg/dL [facility] [place] Comment on above: Test performed by gl ucose meter. Results may be 10%-15% lower than serum/plasma values. (CLIA ID [id number]) Test Performed by [employer] [facility], [address] [place] [place] [address] [facility] Glucose [Mass/Vol] 111 mg/dL High 70 - 100 mg/dL [facility] Comment on above: Test performed by gl ucose meter. Results may be 10%-15% lower than serum/plasma values. (CLIA ID [id number]) Interpretation and review of laboratory results Abnormal [facility] Test Performed by [employer] [facility], [address] [place] [address] [facility] [place] Glucose [Mass/Vol] 149 mg/dL High 70 - 100 mg/dL [facility] [place] Comment on above: Test performed by gl ucose meter. Results may be 10%-15% lower than serum/plasma values. (CLIA ID [id number]) Interpretation and review of laboratory results Abnormal [facility] [place] Test Performed by [employer] [facility], [address] [place] [address] [facility] [place] Glucose [Mass/Vol] 153 mg/dL High 70 - 100 mg/dL [facility] [place] Comment on above: Test performed by gl ucose meter. Results may be 10%-15% lower than serum/plasma values. (CLIA ID [id number]) Interpretation and review of laboratory results Abnormal [facility] [place] Test Performed by [employer] [facility], [address] [place] [place] [address] [facility] [place] Glucose [Mass/Vol] 165 mg/dL High 70 - 100 mg/dL [facility] [place] Comment on above: Test performed by gl ucose meter. Results may be 10%-15% lower than serum/plasma values. (CLIA ID [id number]) Interpretation and review of laboratory results Abnormal [facility] Test Performed by [facility] [facility], [address] [place] [place] [address] [facility] [place] Glucose [Mass/Vol] 150 mg/dL High 70 - 100 mg/dL [facility] [place] Comment on above: Test performed by gl ucose meter. Results may be 10%-15% lower than serum/plasma values. (CLIA ID [id number]) Interpretation and review of laboratory results Abnormal [facility] [place] Test Performed by [employer] [facility], [address] [place] [place] [address] [facility] [place] Glucose [Mass/Vol] 172 mg/dL High 70 - 100 mg/dL [facility] [place] Comment on above: Test performed by gl ucose meter. Results may be 10%-15% lower than serum/plasma values. (CLIA ID [id number]) Interpretation and review of laboratory results Abnormal [facility] [place] Test Performed by [employer] [facility], [address] [place] [address] [facility] [place] Glucose [Mass/Vol] 112 mg/dL High 70 - 100 mg/dL [facility] [place] Comment on above: Test performed by gl ucose meter. Results may be 10%-15% lower than serum/plasma values. (CLIA ID [id number]) Interpretation and review of laboratory results Abnormal [place] Test Performed by [facility], [facility] [place], [place] [id number] [place] [address] Glucose [Mass/Vol] 96 mg/dL 70 - 100 mg/dL [place] Comment on above: Test performed by gl ucose meter. Results may be 10%-15% lower than serum/plasma values. (CLIA ID [id number]) Test Performed by [facility], [facility] [address] Glucose [Mass/Vol] 95 mg/dL 70 - 100 mg/dL [place] Comment on above: Test performed by gl ucose meter. Results may be 10%-15% lower than serum/plasma values. (CLIA ID [id number]) Test Performed by [facility], [address] [place] [address] PREPARE RBC (CROSSMATCH), 2 Unitson 03-01-2019 Blood product unit ID (Dose) [#] [id number] [place] Blood product unit ID (Dose) [#] [id number] [place] Potassiumon 03-01-2019 Potassium [Moles/Vol] 5.4 mmol/L High 3.5-5.1 [facility] Comment on above: Performed By: #### B GLU #### [address] [place] [address] Interpretation and review of laboratory results Abnormal [place] Potassium [Moles/Vol] 5.4 mmol/L High 3.5 - 5.1 mmol/L [place] Test Performed by [facility], [facility] [place], [place] [address] [place] [address] XR CHEST PORTABLEon 03-01-20 Patient Name: CHRISTY FRANCIS [facility]: [id number] ---Diagnostic Radiology--- Exam Date/Time 03/01/2019 07:10:13 EST Exam CR Chest Portable Ordering Physician GRANT TAYLOR Accession Number [id number] CPT4 Codes 91110 () Reason For Exam sob Report CLINICAL INFORMATION: Shortness of breath. Status post open heart surgery. CHEST X-RAY, PORTABLE, 0537 hours: An AP portable view is compared to the prior examination of previous day. There is no change in the mediastinal or left lower hemithorax chest tubes or right internal jugular Wetmore-Jose introducer sheath. There is stable slightly limited lung volumes. No pneumothorax or other acute process or interval change identified. Report Dictated on --- Final --- Dictated: 03/01/2019 7:23 am Dictating Physician: MD JIMENEZ HARLAN Signed Date and Time: 03/01/2019 7:25 am Signed by: MD JIMENEZ HARLAN Transcribed Date and Time: 03/01/2019 7:23 [place], [place], [facility] Incoming Radiology Results From [facility] - 03/01/2019 7:26 AM EST Patient Name: CHRISTY FRANCIS ---Diagnostic Radiology--- Exam Date/Time 03/01/2019 07:10:13 EST Exam CR Chest Portable Ordering Physician GRANT TAYLOR Accession Number [id number] CPT4 Codes 53519 () Reason For Exam sob Report CLINICAL INFORMATION: Shortness of breath. Status post open heart surgery. CHEST X-RAY, PORTABLE, 0537 hours: An AP portable view is compared to the prior examination of previous day. There is no change in the mediastinal or left lower hemithorax chest tubes or right internal jugular Wetmore-Jose introducer sheath. There is stable slightly limited lung volumes. No pneumothorax or other acute process or interval change identified. Report Dictated on --- Final --- Dictated: 03/01/2019 7:23 am Dictating Physician: MD JIMENEZ HARLAN Signed Date and Time: 03/01/2019 7:25 am Signed by: MD JIMENEZ HARLAN Transcribed Date and Time: 03/01/2019 7:23 [facility], [place] Basic Metabolic Panelon 11- Calcium [Mass/Vol] 9.3 mg/dL Normal 8.4-10.4 [facility] Comment on above: Performed By: #### B GLU #### [facility] [address] [place], [place] Anion gap [Moles/Vol] 14 Normal [facility] Comment on above: Performed By: #### B GLU #### [facility] [address] [place], [place] CO2 [Moles/Vol] 18 mmol/L Low 22-30 [facility] Comment on above: Performed By: #### B GLU #### [address] [place], [place] Creatinine [Mass/Vol] 1.35 mg/dL High 0.52-1.25 [facility] Comment on above: Performed By: #### B GLU #### [facility] [address] [place], [place] GFR/1.73 sq M predicted among blacks MDRD (S/P/Bld) [Vol rate/Area] 47.1 mL/min/{1.73_m2} Normal >60 [facility] Comment on above: Performed By: #### B GLU #### [facility] [address] [place], [place] GFR/1.73 sq M predicted among non-blacks MDRD (S/P/Bld) [Vol rate/Area] 38.9 mL/min/{1.73_m2} Normal >60 [facility] Comment on above: Result Comment: Sour ce- MDRD equation with creatinine calibration to IDMS(NKDEP) eGFR not recommended for drug dose adjustment Performed By: #### B GLU #### [facility] [address] [place], [place] Glucose [Mass/Vol] 127 mg/dL High 70-100 [facility] Comment on above: Performed By: #### B GLU #### [facility] [address] [place], [place] Urea nitrogen [Mass/Vol] 25 mg/dL High 7-20 [facility] Comment on above: Performed By: #### B GLU #### [facility] [address] [place] [address] Chloride [Moles/Vol] 109 mmol/L High 98-107 [facility] Comment on above: Performed By: #### B GLU #### [facility] [address] [place] [address] Potassium [Moles/Vol] 4.7 mmol/L Normal 3.5-5.1 [facility] Comment on above: Performed By: #### B GLU #### [facility] [address] [place] [address] Sodium [Moles/Vol] 141 mmol/L Normal 135-145 [facility] Comment on above: Performed By: #### B GLU #### [facility] [address] [place] [address] Anion gap [Moles/Vol] 14 mmol/L [place] Calcium [Mass/Vol] 9.3 mg/dL 8.4 - 10. 4 mg/dL [place] Chloride [Moles/Vol] 109 mmol/L High 98 - 10 7 mmol/L [place] CO2 [Moles/Vol] 18 mmol/L Low 22 - 30 mmol/L [place] Creatinine [Mass/Vol] 1.35 mg/dL High 0.52 - 1.25 mg/dL [place] EGFR IF NonAfrican [place] 38.9 mL/min >60 [place] Comment on above: Source- MDRD equatio n with creatinine calibration to IDMS(NKDEP) eGFR not recommended for drug dose adjustment GFR/1.73 sq M predicted among blacks MDRD (S/P/Bld) [Vol rate/Area] 47.1 mL/min/{1.73_m2} >60 [place] Glucose [Mass/Vol] 127 mg/dL High 70 - 100 mg/dL [place] Potassium [Moles/Vol] 4.7 mmol/L 3.5 - 5.1 mmol/L [place] Sodium [Moles/Vol] 141 mmol/L 135 - 145 mmol/L [facility] [place] Urea nitrogen [Mass/Vol] 25 mg/dL High 7 - 20 mg/dL [place] Test Performed by [facility], [address], [place] [address] [place] Potassium [Moles/Vol] 7.0 mmol/L Critically high 3.5-5.1 [facility] Comment on above: Result Comment: repe ated Performed By: #### B GLU #### [facility] [address] [place] [address] Calcium [Mass/Vol] 9.2 mg/dL Normal 8.4-10.4 [facility] Comment on above: Performed By: #### B GLU #### [address] [place], [place] Glucose [Mass/Vol] 115 mg/dL High 70-100 [facility] Comment on above: Performed By: #### B GLU #### [address] [place] [address] Anion gap [Moles/Vol] 9 Normal [facility] Comment on above: Performed By: #### B GLU #### [address] [place], [place] CO2 [Moles/Vol] 21 mmol/L Low 22-30 [facility] Comment on above: Performed By: #### B GLU #### [address] [place] [address] Creatinine [Mass/Vol] 1.18 mg/dL Normal 0.52-1.25 [facility] Comment on above: Performed By: #### B GLU #### [address] [place] [address] GFR/1.73 sq M predicted among blacks MDRD (S/P/Bld) [Vol rate/Area] 55.0 mL/min/{1.73_m2} Normal >60 [facility] Comment on above: Performed By: #### B GLU #### [facility] [address] [place] [address] GFR/1.73 sq M predicted among non-blacks MDRD (S/P/Bld) [Vol rate/Area] 45.4 mL/min/{1.73_m2} Normal >60 [facility] Comment on above: Result Comment: Sour ce- MDRD equation with creatinine calibration to IDMS(NKDEP) eGFR not recommended for drug dose adjustment Performed By: #### B GLU #### [facility] [address] [place] [address] Urea nitrogen [Mass/Vol] 25 mg/dL High 7-20 [facility] Comment on above: Performed By: #### B GLU #### [facility] [address] [place] [address] Chloride [Moles/Vol] 110 mmol/L High 98-107 [facility] Comment on above: Performed By: #### B GLU #### [facility] [address] [place] [address] Sodium [Moles/Vol] 139 mmol/L Normal 135-145 [facility] Comment on above: Performed By: #### B GLU #### [facility] [address] [place] [address] Anion gap [Moles/Vol] 9 mmol/L [facility], [place] Calcium [Mass/Vol] 9.2 mg/dL 8.4 - 10. 4 mg/dL [place] Chloride [Moles/Vol] 110 mmol/L High 98 - 10 7 mmol/L [place] CO2 [Moles/Vol] 21 mmol/L Low 22 - 30 mmol/L [place] Creatinine [Mass/Vol] 1.18 mg/dL 0.52 - 1.25 mg/dL [place] EGFR IF NonAfrican [place] 45.4 mL/min >60 [place] Comment on above: Source- MDRD equatio n with creatinine calibration to IDMS(NKDEP) eGFR not recommended for drug dose adjustment GFR/1.73 sq M predicted among blacks MDRD (S/P/Bld) [Vol rate/Area] 55.0 mL/min/{1.73_m2} >60 [facility], [place] Glucose [Mass/Vol] 115 mg/dL High 70 - 100 mg/dL [place] Interpretation and review of laboratory results Abnormal [place] Potassium [Moles/Vol] 7.0 mmol/L Critically high 3.5 - 5.1 mmol/L [place] Comment on above: repeated Sodium [Moles/Vol] 139 mmol/L 135 - 145 mmol/L [place] Urea nitrogen [Mass/Vol] 25 mg/dL High 7 - 20 mg/dL [place] Test Performed by [facility], [facility] [place] [place] [address] [place], [place] CBCon 02-28-2019 Erythrocyte distribution width (RBC) [Ratio] 13.1 % 11.5 - 14.5 % [place] Hematocrit (Bld) [Volume fraction] 34.8 % Low 35 - 47 % [place] Hemoglobin (Bld) [Mass/Vol] 11.4 g/dL Low 11.7 - 16 g/dL [place] Interpretation and review of laboratory results Abnormal [place] MCH (RBC) [Entitic mass] 30.3 pg 26 - 34 pg [place] MCHC (RBC) [Mass/Vol] 32.8 % 32 - 36 % [place] MCV (RBC) [Entitic vol] 92.3 fL 79 - 98 fL [place] Platelet mean volume (Bld) [Entitic vol] 10.1 fL 7.4 - 10.4 fL [place] Platelets (Bld) [#/Vol] 160 10*3/uL 140 - 440 10*3/uL [place] RBC (Bld) [#/Vol] 3.78 10*6/uL Low 3.8 - 5.2 10*6/uL [place] WBC (Bld) [#/Vol] 18.8 10*3/uL High 3.6 - 10.7 10*3/uL [place] Test Performed by [facility], [facility] [place] [place] [address] [place], [place] CR Chest Portableon 02-29-20 19 CR Chest Portable Patient Name: CHRSITY FRANCIS Diagnostic Radiology Exam Date/Time 02/28/2019 07:24:40 EST Exam CR Chest Portable Ordering Physician GRANT TAYLOR Accession Number [id number] CPT4 Codes 83301 () Reason For Exam POST OPEN HEART Report CHEST - PORTABLE: CLINICAL INDICATION: Respiratory distress for follow up TECHNIQUE: Portable AP COMPARISON: One day ago FINDINGS: Life support devices: Right jugular venous sheath is noted. The Wetmore-Jose catheter has been removed. Endotracheal tube and nasogastric tube have been removed. Mediastinal drain remains in place along with left chest tube Heart/Mediastinum: Unchanged Lungs/Pleura: Previously noted atelectasis in the right upper lobe identified on the examination from one day ago is resolved. There is no other consolidation. Right costophrenic angle is sharp. IMPRESSION: Resolved atelectasis in the right upper lobe. No other consolidation. Report Dictated on Workstation: [id number] Final Dictated: 02/28/2019 6:53 am Dictating Physician: MD SOLORZANO JEFFREY Signed Date and Time: 02/28/2019 6:54 am Signed by: MD SOLORZANO JEFFREY Transcribed Date and Time: 02/28/2019 6:53 Normal [facility] EKG 12 leadon 02-28-2019 [facility] Test Date: 2019-02-28 Pat Name: Christy Francis Department: [facility] Room: [facility] Gender: F Chief Crna: SIAN : 1950 Requested By: Order Number: [id number] Reading MD: Bryce Hayden Measurements Intervals [place] Rate: 95 P: 61 TN: 146 QRS: 11 QRSD: 85 T: 93 QT: 321 QTc: 404 Interpretive Statements Sinus rhythm Left atrial enlargement Nonspecific T abnormalities, lateral leads Electronically Signed On 02-28-2019 12:56:39 EST by Bryce Hayden [facility], [facility] Incoming Cardiology Results From [facility] - 02/28/2019 12:57 PM EST [facility] Test Date: 2019-02-28 Pat Name: Christy Franics Department: [facility] Room: [facility] Gender: F Chief Crna: SINA : 1950 Requested By: Order Number: [id number] Reading MD: Bryce Hayden Measurements Intervals [place] Rate: 95 P: 61 TN: 146 QRS: 11 QRSD: 85 T: 93 QT: 321 QTc: 404 Interpretive Statements Sinus rhythm Left atrial enlargement Nonspecific T abnormalities, lateral leads Electronically Signed On 02-28-2019 12:56:39 EST by Bryce Hayden [facility], [place] Glucose,Bedsideon 02-28-2019 Glucose [Mass/Vol] 214 mg/dL High [address] Comment on above: Result Comment: Test performed by glucose meter. Results may be 10%-15% lower than serum/plasma values. (CLIA ID [id number]) Performed By: #### B GLU ####[address] [place] [address] Glucose [Mass/Vol] 196 mg/dL High [address] Comment on above: Result Comment: Test performed by glucose meter. Results may be 10%-15% lower than serum/plasma values. (CLIA ID [id number]) Performed By: #### B GLU #### [address] [place] [address] Glucose [Mass/Vol] 135 mg/dL High [address] Comment on above: Result Comment: Test performed by glucose meter. Results may be 10%-15% lower than serum/plasma values. (CLIA ID [id number]) Performed By: #### B GLU #### [address] [place] [address] Glucose [Mass/Vol] 121 mg/dL High [address] Comment on above: Result Comment: Test performed by glucose meter. Results may be 10%-15% lower than serum/plasma values. (CLIA ID [id number]) Performed By: #### B GLU #### [address] [place] [address] Glucose [Mass/Vol] 76 mg/dL Normal [address] [place] [address] Comment on above: Result Comment: Test performed by glucose meter. Results may be 10%-15% lower than serum/plasma values. (CLIA ID [id number]) Performed By: #### B GLU #### [facility] [address] [facility] [place] [address] Glucose [Mass/Vol] 76 mg/dL Normal 70-100 [facility] Comment on above: Result Comment: Test performed by glucose meter. Results may be 10%-15% lower than serum/plasma values. (CLIA ID [id number]) Performed By: #### B GLU #### [facility] [address] [facility] [place] [address] Glucose [Mass/Vol] 90 mg/dL Normal 70-100 [facility] Comment on above: Result Comment: Test performed by glucose meter. Results may be 10%-15% lower than serum/plasma values. (CLIA ID [id number]) Performed By: #### B GLU #### [facility] [address] [facility] [place] [address] Glucose [Mass/Vol] 97 mg/dL Normal 70-100 [facility] Comment on above: Result Comment: Test performed by glucose meter. Results may be 10%-15% lower than serum/plasma values. (CLIA ID [id number]) Performed By: #### B GLU #### [facility] [address] [facility] [place] [address] Glucose [Mass/Vol] 123 mg/dL High 70-100 [facility] Comment on above: Result Comment: Test performed by glucose meter. Results may be 10%-15% lower than serum/plasma values. (CLIA ID [id number]) Performed By: #### B GLU #### [facility] [address] [facility] [place] [address] Glucose [Mass/Vol] 133 mg/dL High 70-100 [facility] Comment on above: Result Comment: Test performed by glucose meter. Results may be 10%-15% lower than serum/plasma values. (CLIA ID [id number]) Performed By: #### B GLU #### [facility] [address] [facility] [place] [address] Glucose [Mass/Vol] 115 mg/dL High 70-100 [facility] Comment on above: Result Comment: Test performed by glucose meter. Results may be 10%-15% lower than serum/plasma values. (CLIA ID [id number]) Performed By: #### B GLU #### [facility] [address] [place] [address] Glucose [Mass/Vol] 138 mg/dL High 70-100 [place] Comment on above: Test performed by gl ucose meter. Results may be 10%-15% lower than serum/plasma values. (CLIA ID [id number]) Result Comment: Test performed by glucose meter. Results may be 10%-15% lower than serum/plasma values. (CLIA ID [id number]) Performed By: #### B GLU #### [facility] [address] [place] [address] Glucose [Mass/Vol] 135 mg/dL High 70-100 [facility] Comment on above: Result Comment: Test performed by glucose meter. Results may be 10%-15% lower than serum/plasma values. (CLIA ID [id number]) Performed By: #### B GLU #### [facility] [address] [place] [address] Glucose [Mass/Vol] 134 mg/dL High 70-100 [facility] Comment on above: Result Comment: Test performed by glucose meter. Results may be 10%-15% lower than serum/plasma values. (CLIA ID [id number]) Performed By: #### B GLU #### [facility] [address] [place] [address] Glucose [Mass/Vol] 143 mg/dL High 70-100 [facility] Comment on above: Result Comment: Test performed by glucose meter. Results may be 10%-15% lower than serum/plasma values. (CLIA ID [id number]) Performed By: #### B GLU #### [facility] [address] [place] [address] Glucose [Mass/Vol] 110 mg/dL High 70-100 [facility] Comment on above: Result Comment: Test performed by glucose meter. Results may be 10%-15% lower than serum/plasma values. (CLIA ID [id number]) Performed By: #### B GLU #### [address] [place] [address] Glucose [Mass/Vol] 155 mg/dL High 70-100 [facility], [place] Comment on above: Test performed by gl ucose meter. Results may be 10%-15% lower than serum/plasma values. (CLIA ID [id number]) Result Comment: Test performed by glucose meter. Results may be 10%-15% lower than serum/plasma values. (CLIA ID [id number]) Performed By: #### B GLU #### [facility] [address] [place] [address] Glucose [Mass/Vol] 104 mg/dL High 70-100 [facility] Comment on above: Result Comment: Test performed by glucose meter. Results may be 10%-15% lower than serum/plasma values. (CLIA ID [id number]) Performed By: #### B GLU #### [address] [place] [address] Glucose [Mass/Vol] 82 mg/dL Normal 70-100 [facility] Comment on above: Result Comment: Test performed by glucose meter. Results may be 10%-15% lower than serum/plasma values. (CLIA ID [id number]) Performed By: #### B GLU #### [address] [place] [address] Glucose [Mass/Vol] 92 mg/dL Normal 70-100 [place] Comment on above: Test performed by gl ucose meter. Results may be 10%-15% lower than serum/plasma values. (CLIA ID [id number]) Result Comment: Test performed by glucose meter. Results may be 10%-15% lower than serum/plasma values. (CLIA ID [id number]) Performed By: #### B GLU #### [address] [facility] [address] [place] [address] Glucose [Mass/Vol] 110 mg/dL High 70-100 [facility] Comment on above: Result Comment: Test performed by glucose meter. Results may be 10%-15% lower than serum/plasma values. (CLIA ID [id number]) Performed By: #### B GLU #### [place] [address] [place], [place] Glucose [Mass/Vol] 122 mg/dL High 70-100 [facility] Comment on above: Result Comment: Test performed by glucose meter. Results may be 10%-15% lower than serum/plasma values. (CLIA ID [id number]) Performed By: #### B GLU #### [place] [address] [place], [place] Glucose [Mass/Vol] 152 mg/dL High 70-100 [facility] Comment on above: Result Comment: Test performed by glucose meter. Results may be 10%-15% lower than serum/plasma values. (CLIA ID [id number]) Performed By: #### B GLU #### [place] [address] [place], [place] Glucose [Mass/Vol] 156 mg/dL High 70-100 [facility] Comment on above: Result Comment: Test performed by glucose meter. Results may be 10%-15% lower than serum/plasma values. (CLIA ID [id number]) Performed By: #### B GLU #### [place] [address] [place], [place] Hemogramon 02-28-2019 Erythrocyte distribution width (RBC) [Ratio] 13.1 % Normal 11.5-14.5 [facility] Comment on above: Performed By: #### B GLU #### [place] [address] [place], [place] Hematocrit (Bld) [Volume fraction] 34.8 % Low 35.0-47.0 [facility] Comment on above: Performed By: #### B GLU #### [place] [address] [place], [place] Hemoglobin (Bld) [Mass/Vol] 11.4 g/dL Low 11.7-16.0 [facility] Comment on above: Performed By: #### B GLU #### [place] [address] [place], [place] MCH (RBC) [Entitic mass] 30.3 pg Normal 26.0-34.0 [facility] Comment on above: Performed By: #### B GLU #### [facility] [address] [place], [place] MCHC (RBC) [Mass/Vol] 32.8 % Normal 32.0-36.0 [facility] Comment on above: Performed By: #### B GLU #### [place] [address] [place], [place] MCV (RBC) [Entitic vol] 92.3 fL Normal 79.0-98.0 [facility] Comment on above: Performed By: #### B GLU #### [place] [address] [place], [place] Platelet mean volume (Bld) [Entitic vol] 10.1 fL Normal 7.4-10.4 [facility] Comment on above: Performed By: #### B GLU #### [place] [address] [place], [place] Platelets (Bld) [#/Vol] 160 10*3/uL Normal 140-440 [facility] Comment on above: Performed By: #### B GLU #### [place] [address] [place], [place] RBC (Bld) [#/Vol] 3.78 10*6/uL Low 3.80-5.20 [facility] Comment on above: Performed By: #### B GLU #### [place] [address] [place], [place] WBC (Bld) [#/Vol] 18.8 10*3/uL High 3.6-10.7 [facility] Comment on above: Performed By: #### B GLU #### [place] [address] [place], [place] Otheron 02-28-2019 Interpretation and review of laboratory results Abnormal [place] POCT Glucoseon 02-28-2019 Glucose [Mass/Vol] 136 mg/dL High 70 - 100 mg/dL [facility] [place] Comment on above: Test performed by gl ucose meter. Results may be 10%-15% lower than serum/plasma values. (CLIA ID [id number]) Interpretation and review of laboratory results Abnormal [facility] [place] Test Performed by [employer] [facility], [address] [place] [address] [facility] [place] Glucose [Mass/Vol] 162 mg/dL High 70 - 100 mg/dL [facility] [place] Comment on above: Test performed by gl ucose meter. Results may be 10%-15% lower than serum/plasma values. (CLIA ID [id number]) Interpretation and review of laboratory results Abnormal [facility] [place] Test Performed by [employer] [facility], [address] [place] [address] [facility] [place] Glucose [Mass/Vol] 214 mg/dL High 70 - 100 mg/dL [facility] [place] Comment on above: Test performed by gl ucose meter. Results may be 10%-15% lower than serum/plasma values. (CLIA ID [id number]) Interpretation and review of laboratory results Abnormal [facility] [place] Test Performed by [employer] [facility], [address] [place] [address] [facility] [place] Glucose [Mass/Vol] 196 mg/dL High 70 - 100 mg/dL [facility] [place] Comment on above: Test performed by gl ucose meter. Results may be 10%-15% lower than serum/plasma values. (CLIA ID [id number]) Interpretation and review of laboratory results Abnormal [facility] [place] Test Performed by [facility] [facility], [address] [place] [address] [facility] [place] Glucose [Mass/Vol] 135 mg/dL High 70 - 100 mg/dL [facility] [place] Comment on above: Test performed by gl ucose meter. Results may be 10%-15% lower than serum/plasma values. (CLIA ID [id number]) Interpretation and review of laboratory results Abnormal [facility] [place] Test Performed by [facility], [address] [place] [address] [facility] [place] Glucose [Mass/Vol] 121 mg/dL High 70 - 100 mg/dL [facility], [place] Comment on above: Test performed by gl ucose meter. Results may be 10%-15% lower than serum/plasma values. (CLIA ID [id number]) Interpretation and review of laboratory results Abnormal [place] Test Performed by [facility], [address] [place] [address] [facility], [place] Glucose [Mass/Vol] 76 mg/dL 70 - 100 mg/dL [facility], [place] Comment on above: Test performed by gl ucose meter. Results may be 10%-15% lower than serum/plasma values. (CLIA ID [id number]) Test Performed by [facility], [address] [place] [address] [facility], [place] Glucose [Mass/Vol] 76 mg/dL 70 - 100 mg/dL [facility], [place] Comment on above: Test performed by gl ucose meter. Results may be 10%-15% lower than serum/plasma values. (CLIA ID [id number]) Test Performed by [facility], [address] [place] [address] [facility], [place] Glucose [Mass/Vol] 90 mg/dL 70 - 100 mg/dL [facility], [place] Comment on above: Test performed by gl ucose meter. Results may be 10%-15% lower than serum/plasma values. (CLIA ID [id number]) Test Performed by [facility], [address] [place] [address] [facility], [place] Glucose [Mass/Vol] 97 mg/dL 70 - 100 mg/dL [facility], [place] Comment on above: Test performed by gl ucose meter. Results may be 10%-15% lower than serum/plasma values. (CLIA ID [id number]) Test Performed by [facility], [address] [place] [address] [facility], [place] Glucose [Mass/Vol] 123 mg/dL High 70 - 100 mg/dL [facility], [place] Comment on above: Test performed by gl ucose meter. Results may be 10%-15% lower than serum/plasma values. (CLIA ID [id number]) Interpretation and review of laboratory results Abnormal [facility] [place] Test Performed by [employer] [facility], [address], [place] [address] [facility] [place] Glucose [Mass/Vol] 133 mg/dL High 70 - 100 mg/dL [facility] [place] Comment on above: Test performed by gl ucose meter. Results may be 10%-15% lower than serum/plasma values. (CLIA ID [id number]) Interpretation and review of laboratory results Abnormal [facility] [place] Test Performed by [employer] [facility], [address], [place] [address] [facility] [place] Glucose [Mass/Vol] 115 mg/dL High 70 - 100 mg/dL [facility] [place] Comment on above: Test performed by gl ucose meter. Results may be 10%-15% lower than serum/plasma values. (CLIA ID [id number]) Interpretation and review of laboratory results Abnormal [facility] [place] Test Performed by [facility], [address], [place] [address] [facility] [place] Glucose [Mass/Vol] 135 mg/dL High 70 - 100 mg/dL [facility] [place] Comment on above: Test performed by gl ucose meter. Results may be 10%-15% lower than serum/plasma values. (CLIA ID [id number]) Interpretation and review of laboratory results Abnormal [facility] [place] Test Performed by [facility], [address] [place] [address] [facility] [place] Glucose [Mass/Vol] 134 mg/dL High 70 - 100 mg/dL [facility] [place] Comment on above: Test performed by gl ucose meter. Results may be 10%-15% lower than serum/plasma values. (CLIA ID [id number]) Interpretation and review of laboratory results Abnormal [facility] [place] Test Performed by [employer] [facility], [address] [place] [address] [facility] [place] Glucose [Mass/Vol] 143 mg/dL High 70 - 100 mg/dL [facility] [place] Comment on above: Test performed by gl ucose meter. Results may be 10%-15% lower than serum/plasma values. (CLIA ID [id number]) Interpretation and review of laboratory results Abnormal [facility] [place] Test Performed by [facility], [address] [place] [address] [facility] [place] Glucose [Mass/Vol] 110 mg/dL High 70 - 100 mg/dL [facility] [place] Comment on above: Test performed by gl ucose meter. Results may be 10%-15% lower than serum/plasma values. (CLIA ID [id number]) Interpretation and review of laboratory results Abnormal [facility] [place] Test Performed by [facility], [address] [place] [address] [facility] [place] Glucose [Mass/Vol] 104 mg/dL High 70 - 100 mg/dL [facility] [place] Comment on above: Test performed by gl ucose meter. Results may be 10%-15% lower than serum/plasma values. (CLIA ID [id number]) Interpretation and review of laboratory results Abnormal [facility] [place] Test Performed by [facility], [address] [place] [address] [facility] [place] Glucose [Mass/Vol] 82 mg/dL 70 - 100 mg/dL [facility] [place] Comment on above: Test performed by gl ucose meter. Results may be 10%-15% lower than serum/plasma values. (CLIA ID [id number]) Test Performed by [facility], [address] [place] [address] [facility] [place] Test Performed by [facility], [address] [place] [address] [facility] [place] Glucose [Mass/Vol] 110 mg/dL High 70 - 100 mg/dL [facility] [place] Comment on above: Test performed by gl ucose meter. Results may be 10%-15% lower than serum/plasma values. (CLIA ID [id number]) Interpretation and review of laboratory results Abnormal [facility] [place] Test Performed by [facility], [address] [place] [address] [facility] [place] Glucose [Mass/Vol] 122 mg/dL High 70 - 100 mg/dL [place] Comment on above: Test performed by gl ucose meter. Results may be 10%-15% lower than serum/plasma values. (CLIA ID [id number]) Interpretation and review of laboratory results Abnormal [place] Test Performed by [facility], [address] [place] [id number] [place] [address] Potassiumon 02-28-2019 Potassium [Moles/Vol] 6.7 mmol/L Critically high 3.5-5.1 [facility] Comment on above: Result Comment: Repe ated Performed By: #### B GLU #### [address] [address] Interpretation and review of laboratory results Abnormal [place] Potassium [Moles/Vol] 6.7 mmol/L Critically high 3.5 - 5.1 mmol/L [place] Comment on above: Repeated Test Performed by [facility], [address] [place] [id number] [place] [address] XR CHEST PORTABLEon 02-29-20 Patient Name: CHRISTY FRANCIS ---Diagnostic Radiology--- Exam Date/Time 02/28/2019 07:24:40 EST Exam CR Chest Portable Ordering Physician GRANT TAYLOR Accession Number [id number] CPT4 Codes 94942 () Reason For Exam POST OPEN HEART Report CHEST - PORTABLE: CLINICAL INDICATION: Respiratory distress for follow up TECHNIQUE: Portable AP COMPARISON: One day ago FINDINGS: Life support devices: Right jugular venous sheath is noted. The [place]-Jose catheter has been removed. Endotracheal tube and nasogastric tube have been removed. Mediastinal drain remains in place along with left chest tube Heart/Mediastinum: Unchanged Lungs/Pleura: Previously noted atelectasis in the right upper lobe identified on the examination from one day ago is resolved. There is no other consolidation. Right costophrenic angle is sharp. IMPRESSION: Resolved atelectasis in the right upper lobe. No other consolidation. Report Dictated on Workstation: [id number] --- Final --- Dictated: 02/28/2019 6:53 am Dictating Physician: MD SOLORZANO JEFFREY Signed Date and Time: 02/28/2019 6:54 am Signed by: MD SOLORZANO JEFFREY Transcribed Date and Time: 02/28/2019 6:53 [place], [place] Kathie Torres Incoming Radiology Results From [facility] - 02/28/2019 7:25 AM EST Patient Name: CHRISTY FRANCIS ---Diagnostic Radiology--- Exam Date/Time 02/28/2019 07:24:40 EST Exam CR Chest Portable Ordering Physician GRANT TAYLOR Accession Number [id number] CPT4 Codes 82167 () Reason For Exam POST OPEN HEART Report CHEST - PORTABLE: CLINICAL INDICATION: Respiratory distress for follow up TECHNIQUE: Portable AP COMPARISON: One day ago FINDINGS: Life support devices: Right jugular venous sheath is noted. The [place] catheter has been removed. Endotracheal tube and nasogastric tube have been removed. Mediastinal drain remains in place along with left chest tube Heart/Mediastinum: Unchanged Lungs/Pleura: Previously noted atelectasis in the right upper lobe identified on the examination from one day ago is resolved. There is no other consolidation. Right costophrenic angle is sharp. IMPRESSION: Resolved atelectasis in the right upper lobe. No other consolidation. Report Dictated on Workstation: [id number] --- Final --- Dictated: 02/28/2019 6:53 am Dictating Physician: MD SOLORZANO JEFFREY Signed Date and Time: 02/28/2019 6:54 am Signed by: MD SOLORZANO JEFFREY Transcribed Date and Time: 02/28/2019 6:53 [facility] CEM Arterial Blood Gaseson 02-27 CO2 [Moles/Vol] 22.3 mmol/L Low 23.0-27.0 [facility] Comment on above: Performed By: #### H BHARGAVI AVILAM #### [facility] [address] [address] HCO3 (Bld) [Moles/Vol] 20.8 mmol/L Low 21.0-25.0 [facility] Comment on above: Performed By: #### H EMOG, CMP3M #### [facility] [address] [place], [place] Hemoglobin (Bld) [Mass/Vol] 10.4 g/dL Normal ScreenOnly [facility] Comment on above: Performed By: #### H AUSTIN CMP3M #### [place] [address] [place], [place] Oxygen (Bld) [Partial pressure] 270.6 mm[Hg] High 80.0-100.0 [facility] Comment on above: Performed By: #### H AUSTIN CMP3M #### [place] [address] [place], [place] Oxygen saturation in Blood 98.8 % Normal 95.0-100.0 [facility] Comment on above: Performed By: #### H AUSTIN CMP3M #### [place] [address] [place], [place] pCO2 46.0 mm[Hg] High 35.0-45.0 [facility] Comment on above: Performed By: #### H AUSTIN CMP3M #### [facility] [address] [place], [place] pH (Bld) 7.274 Low 7.350-7.450 [facility] Comment on above: Performed By: #### H AUSTIN CMP3M #### [place] [address] [place], [place] Std Base Excess -5.8 mmol/L Low -3.0-3.0 [facility] Comment on above: Performed By: #### H AUSTIN CMP3M #### [facility] [place] [address] [place], [place] FIO2 100% Normal [facility] Comment on above: Performed By: #### H EMONicole CMP3M #### [facility] [address] Basic Metabolic Panelon 02-17 Calcium [Mass/Vol] 9.7 mg/dL Normal 8.4-10.4 [facility] Comment on above: Performed By: #### B GLU #### [facility] [address] [place], [place] Glucose [Mass/Vol] 164 mg/dL High 70-100 [facility] Comment on above: Performed By: #### B GLU #### [facility] [address] [place], [place] Anion gap [Moles/Vol] 13 Normal [facility] Comment on above: Performed By: #### B GLU #### [facility] [address] [place], [place] CO2 [Moles/Vol] 18 mmol/L Low 22-30 [facility] Comment on above: Performed By: #### B GLU #### [place] [address] [place], [place] Creatinine [Mass/Vol] 1.13 mg/dL Normal 0.52-1.25 [facility] Comment on above: Performed By: #### B GLU #### [facility] [address] [place], [place] GFR/1.73 sq M predicted among blacks MDRD (S/P/Bld) [Vol rate/Area] 57.9 mL/min/{1.73_m2} Normal >60 [facility] Comment on above: Performed By: #### B GLU #### [facility] [address] [place], [place] GFR/1.73 sq M predicted among non-blacks MDRD (S/P/Bld) [Vol rate/Area] 47.7 mL/min/{1.73_m2} Normal >60 [facility] Comment on above: Result Comment: Sour ce- MDRD equation with creatinine calibration to IDMS(NKDEP) eGFR not recommended for drug dose adjustment Performed By: #### B GLU #### [facility] [address] [place], [place] Urea nitrogen [Mass/Vol] 24 mg/dL High 7-20 [facility] Comment on above: Performed By: #### B GLU #### [facility] [address] [place], [place] Chloride [Moles/Vol] 110 mmol/L High 98-107 [facility] Comment on above: Performed By: #### B GLU #### [facility] [address] [place] [address] Potassium [Moles/Vol] 4.0 mmol/L Normal 3.5-5.1 [facility] Comment on above: Performed By: #### B GLU #### [facility] [address] [place] [address] Sodium [Moles/Vol] 141 mmol/L Normal 135-145 [facility] Comment on above: Performed By: #### B GLU #### [facility] [address] [place] [address] Anion gap [Moles/Vol] 13 mmol/L [place], [place] Calcium [Mass/Vol] 9.7 mg/dL 8.4 - 10. 4 mg/dL [place] Chloride [Moles/Vol] 110 mmol/L High 98 - 10 7 mmol/L [place] CO2 [Moles/Vol] 18 mmol/L Low 22 - 30 mmol/L [place] Creatinine [Mass/Vol] 1.13 mg/dL 0.52 - 1.25 mg/dL [place] EGFR IF NonAfrican [place] 47.7 mL/min >60 [place] Comment on above: Source- MDRD equatio n with creatinine calibration to IDMS(NKDEP) eGFR not recommended for drug dose adjustment GFR/1.73 sq M predicted among blacks MDRD (S/P/Bld) [Vol rate/Area] 57.9 mL/min/{1.73_m2} >60 [place] Glucose [Mass/Vol] 164 mg/dL High 70 - 100 mg/dL [place] Potassium [Moles/Vol] 4.0 mmol/L 3.5 - 5.1 mmol/L [place] Sodium [Moles/Vol] 141 mmol/L 135 - 145 mmol/L [place] Urea nitrogen [Mass/Vol] 24 mg/dL High 7 - 20 mg/dL [place] Calcium [Mass/Vol] 10.7 mg/dL High 8.4-10.4 [facility] Comment on above: Performed By: #### B GLU #### [facility] [address] [place], [place] Glucose [Mass/Vol] 160 mg/dL High 70-100 [facility] Comment on above: Performed By: #### B GLU #### [facility] [address] [place], [place] Urea nitrogen [Mass/Vol] 25 mg/dL High 7-20 [facility] Comment on above: Performed By: #### B GLU #### [place] [address] [place], [place] Anion gap [Moles/Vol] 12 Normal [facility] Comment on above: Performed By: #### B GLU #### [place] [address] [place], [place] CO2 [Moles/Vol] 19 mmol/L Low 22-30 [facility] Comment on above: Performed By: #### B GLU #### [place] [address] [place], [place] Creatinine [Mass/Vol] 1.17 mg/dL Normal 0.52-1.25 [facility] Comment on above: Performed By: #### B GLU #### [place] [address] [place], [place] GFR/1.73 sq M predicted among blacks MDRD (S/P/Bld) [Vol rate/Area] 55.6 mL/min/{1.73_m2} Normal >60 [facility] Comment on above: Performed By: #### B GLU #### [facility] [address] [place], [place] GFR/1.73 sq M predicted among non-blacks MDRD (S/P/Bld) [Vol rate/Area] 45.9 mL/min/{1.73_m2} Normal >60 [facility] Comment on above: Result Comment: Sour ce- MDRD equation with creatinine calibration to IDMS(NKDEP) eGFR not recommended for drug dose adjustment Performed By: #### B GLU #### [place] [address] [place], [place] Chloride [Moles/Vol] 110 mmol/L High 98-107 [facility] Comment on above: Performed By: #### B GLU #### [facility] [address] [place], [place] Potassium [Moles/Vol] 4.2 mmol/L Normal 3.5-5.1 [facility] Comment on above: Performed By: #### B GLU #### [facility] [address] [place], [place] Sodium [Moles/Vol] 140 mmol/L Normal 135-145 [facility] Comment on above: Performed By: #### B GLU #### [facility] [address] [place], [place] Anion gap [Moles/Vol] 12 mmol/L [place] Calcium [Mass/Vol] 10.7 mg/dL High 8.4 - 10. 4 mg/dL [place] Chloride [Moles/Vol] 110 mmol/L High 98 - 10 7 mmol/L [place] CO2 [Moles/Vol] 19 mmol/L Low 22 - 30 mmol/L [place] Creatinine [Mass/Vol] 1.17 mg/dL 0.52 - 1.25 mg/dL [place] EGFR IF NonAfrican [place] 45.9 mL/min >60 [place] Comment on above: Source- MDRD equatio n with creatinine calibration to IDMS(NKDEP) eGFR not recommended for drug dose adjustment GFR/1.73 sq M predicted among blacks MDRD (S/P/Bld) [Vol rate/Area] 55.6 mL/min/{1.73_m2} >60 [place] Glucose [Mass/Vol] 160 mg/dL High 70 - 100 mg/dL [place] Potassium [Moles/Vol] 4.2 mmol/L 3.5 - 5.1 mmol/L [place] Sodium [Moles/Vol] 140 mmol/L 135 - 145 mmol/L [place] Urea nitrogen [Mass/Vol] 25 mg/dL High 7 - 20 mg/dL [place] Calcium [Mass/Vol] 9.6 mg/dL Normal 8.4-10.4 [facility] Comment on above: Performed By: #### Papito AVILA CMP3M #### [facility] [address] [place], [place] Glucose [Mass/Vol] 233 mg/dL High 70-100 [facility] Comment on above: Performed By: #### Papito AVILA CMP3M #### [facility] [address] [place], [place] Urea nitrogen [Mass/Vol] 32 mg/dL High 7-20 [facility] Comment on above: Performed By: #### Papito AVILA CMP3M #### [place] [address] [place], [place] Anion gap [Moles/Vol] 12 Normal [facility] Comment on above: Performed By: #### Papito AVILA CMP3M #### [facility] [address] [place], [place] CO2 [Moles/Vol] 24 mmol/L Normal 22-30 [facility] Comment on above: Performed By: #### Papito AVILA CMP3M #### [facility] [address] [place], [place] Creatinine [Mass/Vol] 1.05 mg/dL Normal 0.52-1.25 [facility] Comment on above: Performed By: #### Papito AVILA CMP3M #### [facility] [address] [place], [place] GFR/1.73 sq M predicted among blacks MDRD (S/P/Bld) [Vol rate/Area] mL/min/{1.73_m2} Normal >60 [facility] Comment on above: Performed By: #### Papito AVILA CMP3M #### [facility] [address] [place], [place] GFR/1.73 sq M predicted among non-blacks MDRD (S/P/Bld) [Vol rate/Area] 52.0 mL/min/{1.73_m2} Normal >60 [facility] Comment on above: Result Comment: Sour ce- MDRD equation with creatinine calibration to IDMS(NKDEP) eGFR not recommended for drug dose adjustment Performed By: #### H MEGHNA AVILA3M #### [facility] [address] [place] [address] Chloride [Moles/Vol] 103 mmol/L Normal 98-107 [facility] Comment on above: Performed By: #### H MEGHNA AVILA3M #### [facility] [address] [place] [address] Potassium [Moles/Vol] 4.7 mmol/L Normal 3.5-5.1 [facility] Comment on above: Performed By: #### H MEGHNA AVILA3M #### [facility] [address] [place] [address] Sodium [Moles/Vol] 138 mmol/L Normal 135-145 [facility] Comment on above: Performed By: #### Papito AVILA CMP3M #### [facility] [address] [place] [address] Basic Metabolic Panel w/ Ref oneil to MGon 02-27-2019 Anion gap [Moles/Vol] 12 mmol/L [place], [place] Calcium [Mass/Vol] 9.6 mg/dL 8.4 - 10. 4 mg/dL [place] Chloride [Moles/Vol] 103 mmol/L 98 - 10 7 mmol/L [place] CO2 [Moles/Vol] 24 mmol/L 22 - 30 mmol/L [place] Creatinine [Mass/Vol] 1.05 mg/dL 0.52 - 1.25 mg/dL [place] EGFR IF NonAfrican [place] 52.0 mL/min >60 [place] Comment on above: Source- MDRD equatio n with creatinine calibration to IDMS(NKDEP) eGFR not recommended for drug dose adjustment GFR/1.73 sq M predicted among blacks MDRD (S/P/Bld) [Vol rate/Area] mL/min/{1.73_m2} >60 mL/min [place] Glucose [Mass/Vol] 233 mg/dL High 70 - 100 mg/dL [place] Interpretation and review of laboratory results Abnormal [place] Potassium [Moles/Vol] 4.7 mmol/L 3.5 - 5.1 mmol/L [place] Sodium [Moles/Vol] 138 mmol/L 135 - 145 mmol/L [place] Urea nitrogen [Mass/Vol] 32 mg/dL High 7 - 20 mg/dL [place] Test Performed by [address] [place] [address] [place] Blood Gas, Arterialon 2018 Base Excess, Arterial -5.8 mmol/L Low -3 - 3 mmol/L [place] HCO3, Arterial 20.8 mmol/L Low 21 - 25 mmol/L [place] Hemoglobin (Bld) [Mass/Vol] 10.4 g/dL ScreenOnly [place] Oxygen saturation in Blood 98.8 % 95 - 100 % [place] pCO2, Arterial 46.0 mm[Hg] High 35 - 45 mm[Hg] [place] pH, Arterial 7.274 Low [place] pO2, Arterial 270.6 mm[Hg] High 80 - 100 mm[Hg] [place] Sodium [Moles/Vol] 100% [place] TCO2, Arterial 22.3 mmol/L Low 23 - 27 mmol/L [place] CBCon 02-27-2019 Erythrocyte distribution width (RBC) [Ratio] 13.0 % 11.5 - 14.5 % [place] Hematocrit (Bld) [Volume fraction] 34.0 % Low 35 - 47 % [place] Hemoglobin (Bld) [Mass/Vol] 11.2 g/dL Low 11.7 - 16 g/dL [place] Interpretation and review of laboratory results Abnormal [place] MCH (RBC) [Entitic mass] 30.3 pg 26 - 34 pg [place] MCHC (RBC) [Mass/Vol] 32.9 % 32 - 36 % [place] MCV (RBC) [Entitic vol] 92.1 fL 79 - 98 fL [place] Platelet mean volume (Bld) [Entitic vol] 9.9 fL 7.4 - 10.4 fL [place] Platelets (Bld) [#/Vol] 143 10*3/uL 140 - 440 10*3/uL [place] RBC (Bld) [#/Vol] 3.69 10*6/uL Low 3.8 - 5.2 10*6/uL [place] WBC (Bld) [#/Vol] 16.7 10*3/uL High 3.6 - 10.7 10*3/uL [place] Test Performed by [address] [address] [place] Erythrocyte distribution width (RBC) [Ratio] 12.9 % 11.5 - 14.5 % [place] Hematocrit (Bld) [Volume fraction] 29.0 % Low 35 - 47 % [place] Hemoglobin (Bld) [Mass/Vol] 9.8 g/dL Low 11.7 - 16 g/dL [place] Interpretation and review of laboratory results Abnormal [place] MCH (RBC) [Entitic mass] 31.1 pg 26 - 34 pg [place] MCHC (RBC) [Mass/Vol] 33.8 % 32 - 36 % [place] MCV (RBC) [Entitic vol] 91.9 fL 79 - 98 fL [place] Platelet mean volume (Bld) [Entitic vol] 9.7 fL 7.4 - 10.4 fL [place] Platelets (Bld) [#/Vol] 144 10*3/uL 140 - 440 10*3/uL [place] RBC (Bld) [#/Vol] 3.15 10*6/uL Low 3.8 - 5.2 10*6/uL [place] WBC (Bld) [#/Vol] 16.4 10*3/uL High 3.6 - 10.7 10*3/uL [place] Test Performed by [facility], [address] [place] [address] [facility], [place] CR Chest Portableon 02-28-20 19 CR Chest Portable Patient Name: CHRISTY FRANCIS Diagnostic Radiology Exam Date/Time 02/27/2019 16:56:34 EST Exam CR Chest Portable Ordering Physician GRANT TAYLOR Accession Number [id number] CPT4 Codes 79953 () Reason For Exam ETT placement Report CHEST PORTABLE: Indication: Inpatient; endotracheal tube placement Views: Portable frontal Comparison: 02/23/2019 Time: 16:42 on 02/27/2019 FINDINGS: Interval intubation with the endotracheal tube at the az, recommend repositioning and retraction. New right upper lung atelectasis/collapse. An enteric tube is in place with distal tip below the hemidiaphragm but excluded from [id number]. Interval placement of a right internal jugular Wetmore-Jose catheter with tip overlying the right main pulmonary artery. There are new median sternotomy wires and clips with a left chest tube and mediastinal drains. The costophrenic angles are sharp. There is no sizable pneumothorax or pleural effusion. IMPRESSION: The endotracheal tube is at the az with new right upper lung atelectasis/collapse. Recommend repositioning. Support devices, as above. CTR: I discussed the findings with the patient's nurse Bruce around 17:59 on 02/27/2019. Bruce states the endotracheal tube has been retracted. Report Dictated on Final Dictated: 02/27/2019 5:56 pm Dictating Physician: MD BURDICK JENNIFER R Signed Date and Time: 02/27/2019 6:02 pm Signed by: MD BURDICK JENNIFER R Transcribed Date and Time: 02/27/2019 5:56 Normal [facility] CULTURE STAPH AUREUSon 02-27 CULTURE STAPH AUREUS CULTURE STAPH AUREU S --> Status: F No Staphylococcus aureus isolated. Normal [facility] Comment on above: Order Comment: Speci men Source Comment:Nasal Performed By: #### H MEGHNA AVILA3M #### [address] [address] CULTURE, STAPH AUREUSon 02-17 CULTURE, STAPHYLOCOCCUS SCREEN No Staphylococcus aureus isolated. [facility] Test Performed by [facility], [address] [place] [id number] Specimen Source Comment:Nasal [facility] Calcium, Ionizedon 9 Ionized Ca 5.50 mg/dL High 4.3 - 5.2 mg/dL [facility] CEM pH (Bld) 7.27 [pH] Low [facility] Calcium,Ionizedon 02-27-2019 Ionized Ca,Measured 5.50 mg/dL High 4.30-5.20 [facility] Comment on above: Performed By: #### H MEGHNA AVILA3M #### [address] pH, Ionized Calcium 7.27 Low 7.31-7.46 [facility] Comment on above: Performed By: #### H MEGHNA AVILA3M #### [address] Echo 2D/3D DONNELL w/wo Contrast on 02-27-2019 Echo 2D/3D DONNELL w/wo Contrast Patient Name: CHRISTY FRANCIS Ultrasound Exam Date/Time 02/27/2019 13:12:30 EST Exam Echo 2D/3D DONNELL w/wo Contrast Ordering Physician CITLALY CARMONA ELLEN E Accession Number [id number] Reason For Exam Surgery Report TRANSESOPHAGEAL ECHOCARDIOGRAM Intraoperative-Pre Pump Only PATIENT: Christy Francis STUDY DATE: 02/27/2019 : 1950 AGE: 69 HT/WT: 154.9 cm (61 80 kg in) (176 lb) GENDER: F BP: 98 / 57 LOCATION: [facility] PATIENT Inpatient [facility] STATUS: *ORDERING PHYSICIAN: * Ronda Carmona *READING PHYSICIAN: * Michi Dewitt, *CANVAS CUTTER: * Janice Trivedi MD [facility] INDICATIONS: CABG. CONCLUSIONS SUMMARY: 1. Left ventricle: Systolic function is moderately decreased. The estimated ejection fraction is 35-40%. 2. No significant valvular abnormalities. STUDY DATA: Operative transesophageal echocardiogram. Procedure: The procedure was performed with the patient intubated under general anesthesia on the operating table. A complete pre-operative DONNELL was performed. Image quality was good. A transesophageal probe was inserted by the anesthesiologistwithout difficulty. Complete 2D, complete spectral Doppler, and color flow Doppler images were acquired and archived for permanent storage and are available for subsequent review. Study status: Routine. Patient status: Inpatient. Location: Procedure room. Administered medications: General anesthesia given with Isoflurane. FINDINGS LEFT VENTRICLE: The cavity size is normal. Wall thickness is moderately increased. Systolic function is moderately decreased. The estimated ejection fraction is 35-40%. RIGHT VENTRICLE: The cavity size is normal. Systolic function is normal. VENTRICULAR SEPTUM: There is no evidence of a ventricular septal defect. LEFT ATRIUM: The atrium is normal in size. There is no evidence of a thrombus in the atrial cavity or appendage. No spontaneous echo contrast is observed. The appendage is of normal size. Emptying velocity is normal. RIGHT ATRIUM: The atrium is normal in size. ATRIAL SEPTUM: No evidence of patent foramen ovale or atrial septal defect by color flow doppler. MITRAL VALVE: Mildly thickened leaflets. Leaflet separation is normal. Doppler: There is mild, 1+ regurgitation. AORTIC VALVE: Structurally normal valve. Trileaflet. Cusp separation is normal. Doppler: There is no stenosis. There is no significant regurgitation. TRICUSPID VALVE: Structurally normal valve. Leaflet separation is normal. Doppler: There is trivial, less than 1+ regurgitation. PULMONIC VALVE: No thickening. Cusp separation is normal. Doppler: There is no regurgitation. AORTA: The aortic root and ascending aorta are normal in size. The visualized portions of the arch and descending aorta are normal in size. The aorta is moderately diseased. There is no evidence for aneurysm. There is no evidence for dissection. Aortic root: The aortic root is not dilated. PULMONARY ARTERY: The main pulmonary artery is normal in size. PERICARDIUM: There is no pericardial effusion. Electronically signed by Michi Dewitt MD 03/02/2019 08:46 Prior Signatures: Final Dictated: 03/02/2019 8:47 am Dictating Physician: MICHI DEWITT Signed Date and Time: 03/02/2019 8:47 am Signed by: MICHI DEWITT Normal [facility] Glucose,Bedsideon 02-27-2019 Glucose [Mass/Vol] 180 mg/dL High 70-100 [facility] Comment on above: Result Comment: Test performed by glucose meter. Results may be 10%-15% lower than serum/plasma values. (CLIA ID [id number]) Performed By: #### B GLU #### [address] [address] Glucose [Mass/Vol] 181 mg/dL High 70-100 [facility] Comment on above: Result Comment: Test performed by glucose meter. Results may be 10%-15% lower than serum/plasma values. (CLIA ID [id number]) Performed By: #### B GLU #### [facility] [address] [place] [address] Glucose [Mass/Vol] 179 mg/dL High 70-100 [facility] Comment on above: Result Comment: Test performed by glucose meter. Results may be 10%-15% lower than serum/plasma values. (CLIA ID [id number]) Performed By: #### B GLU #### [facility] [address] [place] [address] Glucose [Mass/Vol] 148 mg/dL High 70-100 [facility] Comment on above: Result Comment: Test performed by glucose meter. Results may be 10%-15% lower than serum/plasma values. (CLIA ID [id number]) Performed By: #### B GLU #### [employer] [facility] [address] [place] [address] Glucose [Mass/Vol] 139 mg/dL High 70-100 [facility] Comment on above: Result Comment: Test performed by glucose meter. Results may be 10%-15% lower than serum/plasma values. (CLIA ID [id number]) Performed By: #### B GLU #### [facility] [place] [address] [place] [address] Glucose [Mass/Vol] 233 mg/dL High 70-100 [facility] Comment on above: Result Comment: Test performed by glucose meter. Results may be 10%-15% lower than serum/plasma values. (CLIA ID [id number]) Performed By: #### H AUSTIN CMP3M #### [address] [place] [address] Glucose [Mass/Vol] 299 mg/dL High 70-100 [facility] Comment on above: Result Comment: Test performed by glucose meter. Results may be 10%-15% lower than serum/plasma values. (CLIA ID [id number]) Performed By: #### H AUSTIN CMP3M #### [address] [facility] [address] [place] [address] Hemogramon 02-27-2019 Erythrocyte distribution width (RBC) [Ratio] 13.0 % Normal 11.5-14.5 [facility] Comment on above: Performed By: #### B GLU #### [facility] [address] [place] [address] Hematocrit (Bld) [Volume fraction] 34.0 % Low 35.0-47.0 [facility] Comment on above: Performed By: #### B GLU #### [facility] [address], [place] Hemoglobin (Bld) [Mass/Vol] 11.2 g/dL Low 11.7-16.0 [facility] Comment on above: Performed By: #### B GLU #### [facility] [address], [place] MCH (RBC) [Entitic mass] 30.3 pg Normal 26.0-34.0 [facility] Comment on above: Performed By: #### B GLU #### [facility] [address], [place] MCHC (RBC) [Mass/Vol] 32.9 % Normal 32.0-36.0 [facility] Comment on above: Performed By: #### B GLU #### [facility] [address], [place] MCV (RBC) [Entitic vol] 92.1 fL Normal 79.0-98.0 [facility] Comment on above: Performed By: #### B GLU #### [facility] [address], [place] Platelet mean volume (Bld) [Entitic vol] 9.9 fL Normal 7.4-10.4 [facility] Comment on above: Performed By: #### B GLU #### [facility] [address], [place] Platelets (Bld) [#/Vol] 143 10*3/uL Normal 140-440 [facility] Comment on above: Performed By: #### B GLU #### [facility] [address], [place] RBC (Bld) [#/Vol] 3.69 10*6/uL Low 3.80-5.20 [facility] Comment on above: Performed By: #### B GLU #### [facility] [address], [place] WBC (Bld) [#/Vol] 16.7 10*3/uL High 3.6-10.7 [facility] Comment on above: Performed By: #### B GLU #### [address] Erythrocyte distribution width (RBC) [Ratio] 12.9 % Normal 11.5-14.5 [facility] Comment on above: Performed By: #### H AUSTIN CMP3M #### [address] [address] [place], [place] Hematocrit (Bld) [Volume fraction] 29.0 % Low 35.0-47.0 [facility] Comment on above: Performed By: #### H AUSTIN CMP3M #### [address] Hemoglobin (Bld) [Mass/Vol] 9.8 g/dL Low 11.7-16.0 [facility] Comment on above: Performed By: #### Papito AVILA CMP3M #### [address] MCH (RBC) [Entitic mass] 31.1 pg Normal 26.0-34.0 [facility] Comment on above: Performed By: #### H AUSTIN CMP3M #### [address] MCHC (RBC) [Mass/Vol] 33.8 % Normal 32.0-36.0 [facility] Comment on above: Performed By: #### H AUSTIN CMP3M #### [address] MCV (RBC) [Entitic vol] 91.9 fL Normal 79.0-98.0 [facility] Comment on above: Performed By: #### H AUSTIN CMP3M #### [address] Platelet mean volume (Bld) [Entitic vol] 9.7 fL Normal 7.4-10.4 [facility] Comment on above: Performed By: #### Papito AVILA CMP3M #### [address] Platelets (Bld) [#/Vol] 144 10*3/uL Normal 140-440 [facility] Comment on above: Performed By: #### H MEGHNA AVILA3M #### [facility] [address], [place] RBC (Bld) [#/Vol] 3.15 10*6/uL Low 3.80-5.20 [facility] Comment on above: Performed By: #### H MEGHNA AVILA3M #### [facility] [address], [place] WBC (Bld) [#/Vol] 16.4 10*3/uL High 3.6-10.7 [facility] Comment on above: Performed By: #### Papito AVILA CMP3M #### [place] [address], [place] Magnesiumon 02-27-2019 Magnesium [Mass/Vol] 2.4 mg/dL High 1.6-2.3 [facility] Comment on above: Performed By: #### B GLU #### [place] [place], [place] Magnesium [Mass/Vol] 2.4 mg/dL High 1.6 - 2 .3 mg/dL [facility], [place] Magnesium [Mass/Vol] 3.2 mg/dL High 1.6-2.3 [facility] Comment on above: Performed By: #### B GLU #### [place] [place], [place] Magnesium [Mass/Vol] 3.2 mg/dL High 1.6 - 2 .3 mg/dL [facility], [place] Otheron 02-27-2019 Interpretation and review of laboratory results Abnormal [facility] [place] Test Performed by [address] [address] [place] [address] [facility] [place] Interpretation and review of laboratory results Abnormal [facility] [place] Test Performed by [address] [address] [place] [facility] [place] [address] [facility] [place] Interpretation and review of laboratory results Abnormal [facility] [place] Test Performed by [facility], [address] [place] [address] [facility] [place] POCT Glucoseon 02-27-2019 Glucose [Mass/Vol] 152 mg/dL High 70 - 100 mg/dL [facility] [place] Comment on above: Test performed by gl ucose meter. Results may be 10%-15% lower than serum/plasma values. (CLIA ID [id number]) Interpretation and review of laboratory results Abnormal [facility] [place] Test Performed by [facility], [address] [place] [address] [facility] [place] Glucose [Mass/Vol] 156 mg/dL High 70 - 100 mg/dL [facility] [place] Comment on above: Test performed by gl ucose meter. Results may be 10%-15% lower than serum/plasma values. (CLIA ID [id number]) Interpretation and review of laboratory results Abnormal [facility] [place] Test Performed by [facility], [address] [place] [address] [facility] [place] Glucose [Mass/Vol] 180 mg/dL High 70 - 100 mg/dL [facility] [place] Comment on above: Test performed by gl ucose meter. Results may be 10%-15% lower than serum/plasma values. (CLIA ID [id number]) Interpretation and review of laboratory results Abnormal [facility] [place] Test Performed by [facility], [address] [place] [address] [facility] [place] Glucose [Mass/Vol] 181 mg/dL High 70 - 100 mg/dL [facility] [place] Comment on above: Test performed by gl ucose meter. Results may be 10%-15% lower than serum/plasma values. (CLIA ID [id number]) Interpretation and review of laboratory results Abnormal [facility] [place] Test Performed by [employer] [facility], [address] [place] [address] [facility] [place] Glucose [Mass/Vol] 179 mg/dL High 70 - 100 mg/dL [facility] [place] Comment on above: Test performed by gl ucose meter. Results may be 10%-15% lower than serum/plasma values. (CLIA ID [id number]) Interpretation and review of laboratory results Abnormal [facility] [place] Test Performed by [facility], [address] [place] [address] [facility] [place] Glucose [Mass/Vol] 148 mg/dL High 70 - 100 mg/dL [facility] [place] Comment on above: Test performed by gl ucose meter. Results may be 10%-15% lower than serum/plasma values. (CLIA ID [id number]) Interpretation and review of laboratory results Abnormal [facility] [place] Test Performed by [facility], [address] [place] [address] [facility] [place] Glucose [Mass/Vol] 139 mg/dL High 70 - 100 mg/dL [facility] [place] Comment on above: Test performed by gl ucose meter. Results may be 10%-15% lower than serum/plasma values. (CLIA ID [id number]) Interpretation and review of laboratory results Abnormal [facility] [place] Test Performed by [employer], [address] [place] [address] [facility] [place] Glucose [Mass/Vol] 233 mg/dL High 70 - 100 mg/dL [facility] [place] Comment on above: Test performed by gl ucose meter. Results may be 10%-15% lower than serum/plasma values. (CLIA ID [id number]) Interpretation and review of laboratory results Abnormal [facility] [place] Test Performed by [employer], [address] [place] [address] [facility] [place] Glucose [Mass/Vol] 299 mg/dL High 70 - 100 mg/dL [facility] [place] Comment on above: Test performed by gl ucose meter. Results may be 10%-15% lower than serum/plasma values. (CLIA ID [id number]) Interpretation and review of laboratory results Abnormal [facility] [place] Test Performed by [facility], [address] [place] [address] [facility] [place] Phosphoruson 02-27-2019 Phosphate [Mass/Vol] 3.3 mg/dL Normal 2.5-4.5 [facility] Comment on above: Performed By: #### B GLU #### [place] [place], [place] Phosphate [Mass/Vol] 3.3 mg/dL 2.5 - 4 .5 mg/dL [place] Protime AND APTTon 9 INR Coag (PPP) [Relative time] 1.3 High 0.9-1.1 [facility] Comment on above: Result Comment: Gael mmended Anticoagulant Therapy: SEE BELOW ----- INR of 2.0 - 3.0 : - Prophylaxis of Venous Thrombosis (high-risk surgery) - Treatment of Venous Thrombosis - Treatment of Pulmonary Embolism (Includes tissue heart valves, Acute Myocardial Infarction to prevent systemic embolism, Valvular Heart Disease, and Atrial Fibrillation) ----- INR of 2.5 - 3.5 : - Mechanical Prosthetic Valves (high risk) - If oral anticoagulant therapy is used to prevent Myocardial Infarction Performed By: #### Papito AVILA CMP3M #### [address] [place] [place], [place] PT Coag (PPP) [Time] 13.5 s High 9.0-12.0 [facility] Comment on above: Result Comment: . Performed By: #### Papito AVILA CMP3M #### [facility] [address], [place] aPTT Coag (Bld) [Time] 21.2 s Normal 20.0-30.5 [facility] Comment on above: Result Comment: NOTE : The therapeutic time for Heparin anticoagulation, based on Xa activity inhibition, is an APTT of 46-80 seconds. Performed By: #### Papito AVILA CMP3M #### [facility] [address], [place] Protime/INR & PTTon 02-28-20 19 aPTT Coag (Bld) [Time] 21.2 s 20 - 30.5 s [place] Comment on above: NOTE: The therapeuti c time for Heparin anticoagulation, based on Xa activity inhibition, is an APTT of 46-80 seconds. INR Coag (PPP) [Relative time] 1.3 {INR} High [place] Comment on above: Recommended Anticoag ulant Therapy: SEE BELOW ----- INR of 2.0 - 3.0 : - Prophylaxis of Venous Thrombosis (high-risk surgery) - Treatment of Venous Thrombosis - Treatment of Pulmonary Embolism (Includes tissue heart valves, Acute Myocardial Infarction to prevent systemic embolism, Valvular Heart Disease, and Atrial Fibrillation) ----- INR of 2.5 - 3.5 : - Mechanical Prosthetic Valves (high risk) - If oral anticoagulant therapy is used to prevent Myocardial Infarction Interpretation and review of laboratory results Abnormal [place] PT Coag (PPP) [Time] 13.5 s High 9 - 12 s [place] Comment on above: . Test Performed by [address] [address] [place] XR CHEST PORTABLEon 02-28-20 Patient Name: CHRISTY FRANCIS ---Diagnostic Radiology--- Exam Date/Time 02/27/2019 16:56:34 EST Exam CR Chest Portable Ordering Physician GRANT TAYLOR Accession Number [id number] CPT4 Codes 91154 () Reason For Exam ETT placement Report CHEST PORTABLE: Indication: Inpatient; endotracheal tube placement Views: Portable frontal Comparison: 02/23/2019 Time: 16:42 on 02/27/2019 FINDINGS: Interval intubation with the endotracheal tube at the az, recommend repositioning and retraction. New right upper lung atelectasis/collapse. An enteric tube is in place with distal tip below the hemidiaphragm but excluded from [id number]. Interval placement of a right internal jugular Wet[place]-Jose catheter with tip overlying the right main pulmonary artery. There are new median sternotomy wires and clips with a left chest tube and mediastinal drains. The costophrenic angles are sharp. There is no sizable pneumothorax or pleural effusion. IMPRESSION: The endotracheal tube is at the az with new right upper lung atelectasis/collapse. Recommend repositioning. Support devices, as above. CTR: I discussed the findings with the patient's nurse Bruce around 17:59 on 02/27/2019. Bruce states the endotracheal tube has been retracted. Report Dictated on --- Final --- Dictated: 02/27/2019 5:56 pm Dictating Physician: MD BURDICK JENNIFER R Signed Date and Time: 02/27/2019 6:02 pm Signed by: MD BURDICK JENNIFER R Transcribed Date and Time: 02/27/2019 5:56 [facility], [place] Brian, [facility] Incoming Radiology Results From [facility] - 02/27/2019 6:03 PM EST Patient Name: CHRISTY FRANCIS ---Diagnostic Radiology--- Exam Date/Time 02/27/2019 16:56:34 EST Exam CR Chest Portable Ordering Physician GRANT TAYLOR Accession Number [id number] CPT4 Codes 28448 () Reason For Exam ETT placement Report CHEST PORTABLE: Indication: Inpatient; endotracheal tube placement Views: Portable frontal Comparison: 02/23/2019 Time: 16:42 on 02/27/2019 FINDINGS: Interval intubation with the endotracheal tube at the az, recommend repositioning and retraction. New right upper lung atelectasis/collapse. An enteric tube is in place with distal tip below the hemidiaphragm but excluded from [id number]. Interval placement of a right internal jugular Wetmore-Jose catheter with tip overlying the right main pulmonary artery. There are new median sternotomy wires and clips with a left chest tube and mediastinal drains. The costophrenic angles are sharp. There is no sizable pneumothorax or pleural effusion. IMPRESSION: The endotracheal tube is at the az with new right upper lung atelectasis/collapse. Recommend repositioning. Support devices, as above. CTR: I discussed the findings with the patient's nurse Bruce around 17:59 on 02/27/2019. Bruce states the endotracheal tube has been retracted. Report Dictated on --- Final --- Dictated: 02/27/2019 5:56 pm Dictating Physician: MD BURDICK JENNIFER R Signed Date and Time: 02/27/2019 6:02 pm Signed by: MD BURDICK JENNIFER R Transcribed Date and Time: 02/27/2019 5:56 [facility], [place] Basic Metabolic Panelon 02-17 Calcium [Mass/Vol] 9.2 mg/dL Normal 8.4-10.4 [facility] Comment on above: Performed By: #### Papito AVILA CMP3M #### [facility] [address], [place] Glucose [Mass/Vol] 317 mg/dL High 70-100 [facility] Comment on above: Performed By: #### H AUSTIN CMP3M #### [facility] [address], [place] Anion gap [Moles/Vol] 10 Normal [facility] Comment on above: Performed By: #### H AUSTIN CMP3M #### [facility] [address], [place] CO2 [Moles/Vol] 21 mmol/L Low 22-30 [facility] Comment on above: Performed By: #### Papito AVILA CMP3M #### [place] [address], [place] Creatinine [Mass/Vol] 1.14 mg/dL Normal 0.52-1.25 [facility] Comment on above: Performed By: #### Papito AVILA CMP3M #### [place] [address], [place] GFR/1.73 sq M predicted among blacks MDRD (S/P/Bld) [Vol rate/Area] 57.3 mL/min/{1.73_m2} Normal >60 [facility] Comment on above: Performed By: #### H AUSTIN CMP3M #### [facility] [address], [place] GFR/1.73 sq M predicted among non-blacks MDRD (S/P/Bld) [Vol rate/Area] 47.2 mL/min/{1.73_m2} Normal >60 [facility] Comment on above: Result Comment: Sour ce- MDRD equation with creatinine calibration to IDMS(NKDEP) eGFR not recommended for drug dose adjustment Performed By: #### H AUSTIN CMP3M #### [facility] [address], [place] Urea nitrogen [Mass/Vol] 30 mg/dL High 7-20 [facility] Comment on above: Performed By: #### H AUSTIN CMP3M #### [facility] [address], [place] Chloride [Moles/Vol] 105 mmol/L Normal 98-107 [facility] Comment on above: Performed By: #### H AUSTIN CMP3M #### [facility] [address], [place] Potassium [Moles/Vol] 5.1 mmol/L Normal 3.5-5.1 [facility] Comment on above: Performed By: #### H AUSTIN CMP3M #### [facility] [address], [place] Sodium [Moles/Vol] 136 mmol/L Normal 135-145 [facility] Comment on above: Performed By: #### H AUSTIN CMP3M #### [facility] [address], [place] Basic Metabolic Panel w/ Ref oneil to MGon 02-26-2019 Anion gap [Moles/Vol] 10 mmol/L [place], [place] Calcium [Mass/Vol] 9.2 mg/dL 8.4 - 10. 4 mg/dL [place] Chloride [Moles/Vol] 105 mmol/L 98 - 10 7 mmol/L [place] CO2 [Moles/Vol] 21 mmol/L Low 22 - 30 mmol/L [place] Creatinine [Mass/Vol] 1.14 mg/dL 0.52 - 1.25 mg/dL [place] EGFR IF NonAfrican [place] 47.2 mL/min >60 [place] Comment on above: Source- MDRD equatio n with creatinine calibration to IDMS(NKDEP) eGFR not recommended for drug dose adjustment GFR/1.73 sq M predicted among blacks MDRD (S/P/Bld) [Vol rate/Area] 57.3 mL/min/{1.73_m2} >60 [place] Glucose [Mass/Vol] 317 mg/dL High 70 - 100 mg/dL [place] Interpretation and review of laboratory results Abnormal [place] Potassium [Moles/Vol] 5.1 mmol/L 3.5 - 5.1 mmol/L [place] Sodium [Moles/Vol] 136 mmol/L 135 - 145 mmol/L [place] Urea nitrogen [Mass/Vol] 30 mg/dL High 7 - 20 mg/dL [place] Test Performed by [facility], [address] [place] [id number] [place], [place] CBCon 02-26-2019 Erythrocyte distribution width (RBC) [Ratio] 13.1 % 11.5 - 14.5 % [place] Hematocrit (Bld) [Volume fraction] 44.0 % 35 - 47 % [place] Hemoglobin (Bld) [Mass/Vol] 14.9 g/dL 11.7 - 16 g/dL [place] MCH (RBC) [Entitic mass] 30.6 pg 26 - 34 pg [place] MCHC (RBC) [Mass/Vol] 33.9 % 32 - 36 % [place], [place] MCV (RBC) [Entitic vol] 90.3 fL 79 - 98 fL [place] Platelet mean volume (Bld) [Entitic vol] 9.9 fL 7.4 - 10.4 fL [place] Platelets (Bld) [#/Vol] 205 10*3/uL 140 - 440 10*3/uL [place] RBC (Bld) [#/Vol] 4.88 10*6/uL 3.8 - 5.2 10*6/uL [place] WBC (Bld) [#/Vol] 8.3 10*3/uL 3.6 - 10.7 10*3/uL [place] Test Performed by [facility], [address] [place] [id number] [place] [address] Complete Urinalysison 2018 Appearance (U) Clear Normal Clear [facility] Comment on above: Performed By: #### H MEGHNA AVILA3 #### [place] [id number] Bacteria LM.HPF (Urine sed) [#/Area] Negative Normal Negative [facility] Comment on above: Performed By: #### Papito AVILA CMP3M #### [facility] [address], [place] Bilirubin,Urine Negative Normal Negative [facility] Comment on above: Performed By: #### H AUSTIN CMP3M #### [place] [address], [place] Cast, Hyaline Negative Normal Negative [facility] Comment on above: Performed By: #### H AUSTIN CMP3M #### [place] [address], [place] Color (U) Light-Yellow Normal Lt. Yellow [facility] Comment on above: Performed By: #### Papito AVILA CMP3M #### [place] [address], [place] Glucose Ql (U) 300 mg/dL Normal Normal (<70) [facility] Comment on above: Performed By: #### H AUSTIN CMP3M #### [place] [address], [place] Ketone,Urine Negative Normal Negative [facility] Comment on above: Performed By: #### H AUSTIN CMP3M #### [place] [address], [place] Leukocytes,Urine 25 Michael/uL Normal Negative [facility] Comment on above: Performed By: #### Papito AVILA CMP3M #### [facility] [address], [place] Mucous Threads Few Normal Negative [facility] Comment on above: Performed By: #### H AUSTIN CMP3M #### [place] [address], [place] Nitrites,Urine Negative Normal Negative [facility] Comment on above: Performed By: #### H AUSTIN CMP3M #### [place] [address], [place] Occult Blood,Urine 0.03 mg/dL Normal Negative [facility] Comment on above: Performed By: #### Papito AVILA CMP3M #### [facility] [address], [place] pH (U) 5.0 Normal 5.0-8.0 [facility] Comment on above: Performed By: #### H AUSTIN CMP3M #### [facility] [address], [place] Protein (U) [Mass/Vol] Negative Normal Negative [facility] Comment on above: Performed By: #### H AUSTIN CMP3M #### [facility] [address], [place] RBC LM.HPF (Urine sed) [#/Area] 0 - 2 Normal 0-2 [facility] Comment on above: Performed By: #### Papito AVILA CMP3M #### [facility] [address], [place] Specific Cross,Urine 1.015 Normal 1.005-1.030 [facility] Comment on above: Performed By: #### Papito AVILA CMP3M #### [facility] [address], [place] Squamous Epithelial 0 - 2 Normal 3-5 [facility] Comment on above: Performed By: #### Papito AVILA CMP3M #### [facility] [address], [place] Urobilinogen,Urine Normal Normal Normal (0-1) [facility] Comment on above: Performed By: #### Papito AVILA CMP3M #### [facility] [address], [place] WBC LM.HPF (Urine sed) [#/Area] 0 - 2 Normal 0-5 [facility] Comment on above: Performed By: #### Papito AVILA CMP3M #### [facility] [address], [place] EKG 12 Leadon 02-26-2019 [facility] Incoming Cardiology Results From Merge/Epiphany - 02/26/2019 9:23 AM EST [facility] Test Date: 2019-02-25 Pat Name: Christy Francis Department: 1A5W Room: 1522 Gender: F Chief Crna: MARIE : 1950 Requested By: Order Number: [id number] Reading MD: Keith Ngo Measurements Intervals [place] Rate: 78 P: 52 TN: 150 QRS: -10 QRSD: 86 T: 122 QT: 386 QTc: 440 Interpretive Statements Sinus rhythm LAE, consider biatrial enlargement LVH with secondary repolarization abnormality Electronically Signed On 02-26-2019 9:22:41 EST by Keith [facility] Test Date: 2019-02-25 Pat Name: Christy Francis Department: 1A5W Room: 1522 Gender: F Chief Crna: MARIE : 1950 Requested By: Order Number: [id number] Reading MD: Keith Ngo Measurements Intervals [place] Rate: 78 P: 52 TN: 150 QRS: -10 QRSD: 86 T: 122 QT: 386 QTc: 440 Interpretive Statements Sinus rhythm LAE, consider biatrial enlargement LVH with secondary repolarization abnormality Electronically Signed On 02-26-2019 9:22:41 EST by Keith [employer] [facility], [place] Glucose,Bedsideon 02-26-2019 Glucose [Mass/Vol] 257 mg/dL [address] Comment on above: Result Comment: Test performed by glucose meter. Results may be 10%-15% lower than serum/plasma values. (CLIA ID [id number]) Performed By: #### Papito AVILA CMP3M #### [address] [place] [address] Glucose [Mass/Vol] 270 mg/dL [address] Comment on above: Result Comment: Test performed by glucose meter. Results may be 10%-15% lower than serum/plasma values. (CLIA ID [id number]) Performed By: #### H AUSTIN CMP3M #### [address] [place] [address] Glucose [Mass/Vol] 245 mg/dL [address] Comment on above: Result Comment: Test performed by glucose meter. Results may be 10%-15% lower than serum/plasma values. (CLIA ID [id number]) Performed By: #### H MEGHNA AVILA3M #### [facility] [address], [place] Glucose [Mass/Vol] 316 mg/dL High 70-100 [facility] Comment on above: Result Comment: Test performed by glucose meter. Results may be 10%-15% lower than serum/plasma values. (CLIA ID [id number]) Performed By: #### H MEGHNA AVILA3M #### [facility] [address], [place] Hemogramon 02-26-2019 Erythrocyte distribution width (RBC) [Ratio] 13.1 % Normal 11.5-14.5 [facility] Comment on above: Performed By: #### B GLU #### [place] [address], [place] Hematocrit (Bld) [Volume fraction] 44.0 % Normal 35.0-47.0 [facility] Comment on above: Performed By: #### B GLU #### [place] [address], [place] Hemoglobin (Bld) [Mass/Vol] 14.9 g/dL Normal 11.7-16.0 [facility] Comment on above: Performed By: #### B GLU #### [place] [address], [place] MCH (RBC) [Entitic mass] 30.6 pg Normal 26.0-34.0 [facility] Comment on above: Performed By: #### B GLU #### [facility] [address], [place] MCHC (RBC) [Mass/Vol] 33.9 % Normal 32.0-36.0 [facility] Comment on above: Performed By: #### B GLU #### [facility] [address], [place] MCV (RBC) [Entitic vol] 90.3 fL Normal 79.0-98.0 [facility] Comment on above: Performed By: #### B GLU #### [facility] [address] [place] [address] Platelet mean volume (Bld) [Entitic vol] 9.9 fL Normal 7.4-10.4 [facility] Comment on above: Performed By: #### B GLU #### [facility] [address] [place] [address] Platelets (Bld) [#/Vol] 205 10*3/uL Normal 140-440 [facility] Comment on above: Performed By: #### B GLU #### [facility] [address] [place] [address] RBC (Bld) [#/Vol] 4.88 10*6/uL Normal 3.80-5.20 [facility] Comment on above: Performed By: #### B GLU #### [facility] [address] [place] [address] WBC (Bld) [#/Vol] 8.3 10*3/uL Normal 3.6-10.7 [facility] Comment on above: Performed By: #### B GLU #### [facility] [address] [place] [address] POCT Glucoseon 02-26-2019 Glucose [Mass/Vol] 257 mg/dL High 70 - 100 mg/dL [place] Comment on above: Test performed by gl ucose meter. Results may be 10%-15% lower than serum/plasma values. (CLIA ID [id number]) Interpretation and review of laboratory results Abnormal [facility] [place], [place] Test Performed by [facility], [place] [address] [facility], [place] Glucose [Mass/Vol] 270 mg/dL High 70 - 100 mg/dL [facility] [place], [place] Comment on above: Test performed by gl ucose meter. Results may be 10%-15% lower than serum/plasma values. (CLIA ID [id number]) Interpretation and review of laboratory results Abnormal [facility] [place], [place] Test Performed by [facility], [place] [address] [facility], [place] Glucose [Mass/Vol] 245 mg/dL High 70 - 100 mg/dL [place] Comment on above: Test performed by gl ucose meter. Results may be 10%-15% lower than serum/plasma values. (CLIA ID [id number]) Interpretation and review of laboratory results Abnormal [place] Test Performed by [facility], [facility] [place], [place] [id number] [place] [address] Glucose [Mass/Vol] 316 mg/dL High 70 - 100 mg/dL [place] Comment on above: Test performed by gl ucose meter. Results may be 10%-15% lower than serum/plasma values. (CLIA ID [id number]) Interpretation and review of laboratory results Abnormal [place] Test Performed by [facility], [address] [place] [id number] [place] [address] Prothrombin Timeon 9 INR Coag (PPP) [Relative time] 1.0 Normal 0.9-1.1 [facility] Comment on above: Result Comment: Gael mmended Anticoagulant Therapy: SEE BELOW ----- INR of 2.0 - 3.0 : - Prophylaxis of Venous Thrombosis (high-risk surgery) - Treatment of Venous Thrombosis - Treatment of Pulmonary Embolism (Includes tissue heart valves, Acute Myocardial Infarction to prevent systemic embolism, Valvular Heart Disease, and Atrial Fibrillation) ----- INR of 2.5 - 3.5 : - Mechanical Prosthetic Valves (high risk) - If oral anticoagulant therapy is used to prevent Myocardial Infarction Performed By: #### H MEGHNA AVILA3Adriana #### [facility] [address] [place] [address] PT Coag (PPP) [Time] 10.9 s Normal 9.0-12.0 [facility] [facility] Comment on above: Result Comment: . Performed By: #### H MEGHNA AVILA3M #### [facility] [address] [place] [address] Protime-INRon 02-26-2019 INR Coag (PPP) [Relative time] 1.0 {INR} [place], [place] Comment on above: Recommended Anticoag ulant Therapy: SEE BELOW ----- INR of 2.0 - 3.0 : - Prophylaxis of Venous Thrombosis (high-risk surgery) - Treatment of Venous Thrombosis - Treatment of Pulmonary Embolism (Includes tissue heart valves, Acute Myocardial Infarction to prevent systemic embolism, Valvular Heart Disease, and Atrial Fibrillation) ----- INR of 2.5 - 3.5 : - Mechanical Prosthetic Valves (high risk) - If oral anticoagulant therapy is used to prevent Myocardial Infarction PT Coag (PPP) [Time] 10.9 s 9 - 12 s [place], [place] Comment on above: . Test Performed by [facility], [address] [place] [id number] [place] TS GELon 02-26-2019 TS GEL ABO Group: A Rh, Gel: POS Antibody Screen Gel: NEG Normal [facility] Comment on above: Performed By: #### H [facility]ES [facility] #### [address] [address] TYPE AND SCREENon 02-26-2019 Sodium [Moles/Vol] Positive [place] Comment on above: Test Performed by [facility], [address] [place] [address] Sodium [Moles/Vol] A [place] Sodium [Moles/Vol] Negative [place] Comment on above: Test Performed by [facility], [address] [place] [id number] Test Performed by [facility], [address] [place] [address] [place] Urinalysison 02-26-2019 Appearance (U) Clear Clear NA [place] Bacteria, UA Negative Negative /[HPF] [place] Bilirubin Urine Negative Negative mg/dL [place] Color (U) Light-Yellow Lt. Yellow NA [place] Glucose, Ur 300 mg/dL Normal (<70) [place] Hyaline Casts, UA Negative Negative /[LPF] [place] Ketones Ql (U) Negative Negative mg/dL [place] LEUKOCYTES, UA 25 Negative Michael/uL [place] Mucous Threads Few Negative /[LPF] [facility] [place], [place] Nitrite, Urine Negative Negative NA [facility] [place] Occult Blood,Urine 0.03 mg/dL Negative [facility] [place] pH (U) 5.0 [pH] [facility] [place], [place] Protein (U) [Mass/Vol] Negative Negative mg/dL [facility], [place] RBC (U) [#/Vol] 0-2 0 - 2 /[HPF] [facility] [place], [place] Specific Cross, Urine 1.015 [facility], [place] Squam Epithel, UA 0-2 3 - 5 /[HPF] [facility], [place] Urobilinogen, Urine Normal Normal ( 0-1) mg/dL [facility], [place] WBC, UA 0-2 0 - 5 /[HPF] [facility], [place] Test Performed by [facility], [address] [place] [id number] [facility], [place] VL ARTERIAL PVR LOWER WO EXE RCISEon 02-26-2019 [facility] Multilevel Lower Extremity Arterial Evaluation Report Ordering Physician: Timmy Basilio MD Director Supplier Quality: Yamilet Cortes RVT Interpreting Physician: Charlie Solano MD Location: [facility] Indications: PVD. Conclusions 1. Left resting ISIDRO is 0.64. These findings show moderate arterial insufficiency. Segmental pressures and waveforms show moderate arterial insufficiency due to femoralpopliteal disease. PVR waveforms appear diminished in the left ankle, left 1st toe, left 2nd toe, left 3rd toe, left 4th toe, and left 5th toe. 2. There appears to be a abnormal toe index involving the left great toe. 3. PVR waveforms of the left ankle appear diminished. 4. Normal flow to the ankle with small vessel disease present on the right. 5. There appears to be a abnormal toe index involving the right great toe. 6. Right resting ISIDRO is 0.93. This is within the normal range. 7. PVR waveforms of the right leg appear normal at rest. History: Risk factors: Current tobacco use. Hypertension. Diabetes mellitus. Obese. Hyperlipidemia. Study data: Lower extremity multilevel physiologic evaluation. Pressure measurement and pulse volume recording. Location: Vascular laboratory. Procedure: A vascular evaluation was performed with the patient in the supine position. Images were obtained using a [employer] 2100 vascular ultrasound machine. Arterial pressure indices: + + -----+ + +Location +Pressure (REST)*+Index (REST)+ + + -----+ + +R brachial +120 + + + + -----+ + +R high thigh+142 +1.18 + + + -----+ + +R low thigh +145 +1.21 + + + -----+ + +R calf +136 +1.13 + + + -----+ + +R DP +107 +0.89 + + + -----+ + +R PT +112 +0.93 + + + -----+ + +R great toe +67 +0.56 + + + -----+ + +L high thigh+151 +1.26 + + + -----+ + +L low thigh +113 +0.94 + + + -----+ + +L calf +78 +0.65 + + + -----+ + +L DP +77 +0.64 + + + -----+ + +L PT +65 +0.54 + + + -----+ + +L great toe +40 +0.33 + + + -----+ + Prepared and electronically signed by Charlie Solano MD 02/26/2019 09:13 [facility] [place], [place] [facility] Incoming Cardiology Results From Vera/Brooke - 02/26/2019 9:13 AM EST [facility] Multilevel Lower Extremity Arterial Evaluation Report Ordering Physician: Timmy Basilio MD Director Supplier Quality: Yamilet Cortes RVT Interpreting Physician: Charlie Solano MD Location: [facility] Indications: PVD. Conclusions 1. Left resting ISIDRO is 0.64. These findings show moderate arterial insufficiency. Segmental pressures and waveforms show moderate arterial insufficiency due to femoralpopliteal disease. PVR waveforms appear diminished in the left ankle, left 1st toe, left 2nd toe, left 3rd toe, left 4th toe, and left 5th toe. 2. There appears to be a abnormal toe index involving the left great toe. 3. PVR waveforms of the left ankle appear diminished. 4. Normal flow to the ankle with small vessel disease present on the right. 5. There appears to be a abnormal toe index involving the right great toe. 6. Right resting ISIDRO is 0.93. This is within the normal range. 7. PVR waveforms of the right leg appear normal at rest. History: Risk factors: Current tobacco use. Hypertension. Diabetes mellitus. Obese. Hyperlipidemia. Study data: Lower extremity multilevel physiologic evaluation. Pressure measurement and pulse volume recording. Location: Vascular laboratory. Procedure: A vascular evaluation was performed with the patient in the supine position. Images were obtained using a [employer] 2100 vascular ultrasound machine. Arterial pressure indices: + + -----+ + +Location +Pressure (REST)*+Index (REST)+ + + -----+ + +R brachial +120 + + + + -----+ + +R high thigh+142 +1.18 + + + -----+ + +R low thigh +145 +1.21 + + + -----+ + +R calf +136 +1.13 + + + -----+ + +R DP +107 +0.89 + + + -----+ + +R PT +112 +0.93 + + + -----+ + +R great toe +67 +0.56 + + + -----+ + +L high thigh+151 +1.26 + + + -----+ + +L low thigh +113 +0.94 + + + -----+ + +L calf +78 +0.65 + + + -----+ + +L DP +77 +0.64 + + + -----+ + +L PT +65 +0.54 + + + -----+ + +L great toe +40 +0.33 + + + -----+ + Prepared and electronically signed by Charlie Solano MD 02/26/2019 09:13 [facility] [place], [place] LYON DUP CAROTID BILATERALon 1 1-10-2019 [facility] Cardiology Results From Vera/Brooke - 02/26/2019 9:08 AM EST [facility] Carotid Duplex Report Ordering Physician: Minoo Encinas Director Supplier Quality: Yamilet Cortes Santos Interpreting Physician: Charlie Solano MD Location: [facility] Indications: Carotid stenosis. Conclusions 1. Mild carotid disease present with less than 50% stenosis involving the left internal carotid artery. 2. Normal study involving the left internal carotid artery. 3. Antegrade flow noted in the left vertebral artery. 4. Normal antegrade flow involving the right vertebral artery. History: Risk factors: Hypertension. Diabetes mellitus. Study data: Complete carotid duplex study. Grayscale 2D imaging, color Doppler imaging, and spectral Doppler analysis. Location: Vascular laboratory. Findings Carotid/vertebral arteries: Right common carotid: The vessel is normal; it has no evidence of disease. Right internal carotid: The vessel has minimalmixed plaque. Right external carotid: The vessel is normal; it has no evidence of disease. Right vertebral: The arterial flow direction is antegrade. Left vertebral: The arterial flow direction is antegrade. Left common carotid: The vessel is normal; it has no evidence of disease. Left internal carotid: The vessel is normal; it has no evidence of disease. Left external carotid: The vessel is normal; it has no evidence of disease. Arterial flow: + +--------- --+ + +Location +PSV(cm/sec)+EDV(cm/sec)+ + +--------- --+ + +R CCA , prox +72 +12 + + +--------- --+ + +R CCA , mid +43 +12 + + +--------- --+ + +R ICA , prox +65 +18 + + +--------- --+ + +R ICA , mid +66 +18 + + +--------- --+ + +R ICA , distal+42 +11 + + +--------- --+ + +R ECA +78 +9 + + +--------- --+ + +R vertebral +38 +9 + + +--------- --+ + +L CCA , prox +87 +20 + + +--------- --+ + +L CCA , mid +55 +15 + + +--------- --+ + +L ICA , prox +75 +22 + + +--------- --+ + +L ICA , mid +66 +23 + + +--------- --+ + +L ICA , distal+56 +22 + + +--------- --+ + +L ECA +57 +9 + + +--------- --+ + +L vertebral +54 +16 + + +--------- --+ + Velocity ratios: + + -------+------+ + +Right .+Left .+ + + -------+------+ +Max ICA / Mid CCA Ratio+1.54 +1.37 + + + -------+------+ Prepared and electronically signed by Charlie Solano MD 02/26/2019 09:08 [facility], [facility] Carotid Duplex Report Ordering Physician: Minoo Encinas Director Supplier Quality: Yamilet Cortes RVT Interpreting Physician: Charlie Solano MD Location: [facility] Indications: Carotid stenosis. Conclusions 1. Mild carotid disease present with less than 50% stenosis involving the left internal carotid artery. 2. Normal study involving the left internal carotid artery. 3. Antegrade flow noted in the left vertebral artery. 4. Normal antegrade flow involving the right vertebral artery. History: Risk factors: Hypertension. Diabetes mellitus. Study data: Complete carotid duplex study. Grayscale 2D imaging, color Doppler imaging, and spectral Doppler analysis. Location: Vascular laboratory. Findings Carotid/vertebral arteries: Right common carotid: The vessel is normal; it has no evidence of disease. Right internal carotid: The vessel has minimalmixed plaque. Right external carotid: The vessel is normal; it has no evidence of disease. Right vertebral: The arterial flow direction is antegrade. Left vertebral: The arterial flow direction is antegrade. Left common carotid: The vessel is normal; it has no evidence of disease. Left internal carotid: The vessel is normal; it has no evidence of disease. Left external carotid: The vessel is normal; it has no evidence of disease. Arterial flow: + +--------- --+ + +Location +PSV(cm/sec)+EDV(cm/sec)+ + +--------- --+ + +R CCA , prox +72 +12 + + +--------- --+ + +R CCA , mid +43 +12 + + +--------- --+ + +R ICA , prox +65 +18 + + +--------- --+ + +R ICA , mid +66 +18 + + +--------- --+ + +R ICA , distal+42 +11 + + +--------- --+ + +R ECA +78 +9 + + +--------- --+ + +R vertebral +38 +9 + + +--------- --+ + +L CCA , prox +87 +20 + + +--------- --+ + +L CCA , mid +55 +15 + + +--------- --+ + +L ICA , prox +75 +22 + + +--------- --+ + +L ICA , mid +66 +23 + + +--------- --+ + +L ICA , distal+56 +22 + + +--------- --+ + +L ECA +57 +9 + + +--------- --+ + +L vertebral +54 +16 + + +--------- --+ + Velocity ratios: + + -------+------+ + +Right .+Left .+ + + -------+------+ +Max ICA / Mid CCA Ratio+1.54 +1.37 + + + -------+------+ Prepared and electronically signed by Charlie Solano MD 02/26/2019 09:08 [facility]- [place], [place] VL Pre Op Vein Mappingon [facility] Bilateral LE Vein Mapping For Bypass Report Ordering Physician: Minoo Encinas Director Supplier Quality: Yamilet Cortes RVT Interpreting Physician: Charlie Solano MD Location: [facility] Indications: Pre-op bypass. Conclusions 1. The right great saphenous vein and left great saphenous veinappears patent. 2. Vein sizes as noted below. Study data: Bilateral lower extremity vein mapping. Grayscale 2D imaging. Location: Vascular laboratory. Procedure: A vascular evaluation was performed with the patient in the supine position. Images were obtained using a [email or web address] E9 vascular ultrasound machine. Vein mapping: + +--------- ---+ +Location +Diameter AP*+ + +--------- ---+ +R saph-femoral junction - prox. (thigh)+2.78 mm + + +--------- ---+ +L saph-femoral junction - prox. (thigh)+3.95 mm + + +--------- ---+ +R GSV - distal (thigh) +3.26 mm + + +--------- ---+ +R GSV - mid (thigh) +2.86 mm + + +--------- ---+ +R GSV - prox. (thigh) +3.22 mm + + +--------- ---+ +R GSV - distal (knee) +4.55 mm + + +--------- ---+ +R GSV - distal (calf) +1.90 mm + + +--------- ---+ +R GSV - mid (calf) +2.31 mm + + +--------- ---+ +R GSV - prox. (calf) +3.33 mm + + +--------- ---+ +L GSV - distal (thigh) +3.08 mm + + +--------- ---+ +L GSV - mid (thigh) +3.74 mm + + +--------- ---+ +L GSV - prox. (thigh) +3.59 mm + + +--------- ---+ +L GSV - distal (knee) +1.91 mm + + +--------- ---+ +L GSV - distal (calf) +1.83 mm + + +--------- ---+ +L GSV - mid (calf) +2.38 mm + + +--------- ---+ +L GSV - prox. (calf) +2.79 mm + + +--------- ---+ *Length measurements, e.g. diameters, are expressed in mm Prepared and electronically signed by Charlie Solano MD 02/26/2019 09:10 [facility], Kathie Mathis Incoming Cardiology Results From [facility] - 02/26/2019 9:10 AM EST [facility] Bilateral LE Vein Mapping For Bypass Report Ordering Physician: Minoo Encinas Director Supplier Quality: Yamilet Cortes RVT Interpreting Physician: Charlie Solano MD Location: [facility] Indications: Pre-op bypass. Conclusions 1. The right great saphenous vein and left great saphenous veinappears patent. 2. Vein sizes as noted below. Study data: Bilateral lower extremity vein mapping. Grayscale 2D imaging. Location: Vascular laboratory. Procedure: A vascular evaluation was performed with the patient in the supine position. Images were obtained using a [email or web address] E9 vascular ultrasound machine. Vein mapping: + +--------- ---+ +Location +Diameter AP*+ + +--------- ---+ +R saph-femoral junction - prox. (thigh)+2.78 mm + + +--------- ---+ +L saph-femoral junction - prox. (thigh)+3.95 mm + + +--------- ---+ +R GSV - distal (thigh) +3.26 mm + + +--------- ---+ +R GSV - mid (thigh) +2.86 mm + + +--------- ---+ +R GSV - prox. (thigh) +3.22 mm + + +--------- ---+ +R GSV - distal (knee) +4.55 mm + + +--------- ---+ +R GSV - distal (calf) +1.90 mm + + +--------- ---+ +R GSV - mid (calf) +2.31 mm + + +--------- ---+ +R GSV - prox. (calf) +3.33 mm + + +--------- ---+ +L GSV - distal (thigh) +3.08 mm + + +--------- ---+ +L GSV - mid (thigh) +3.74 mm + + +--------- ---+ +L GSV - prox. (thigh) +3.59 mm + + +--------- ---+ +L GSV - distal (knee) +1.91 mm + + +--------- ---+ +L GSV - distal (calf) +1.83 mm + + +--------- ---+ +L GSV - mid (calf) +2.38 mm + + +--------- ---+ +L GSV - prox. (calf) +2.79 mm + + +--------- ---+ *Length measurements, e.g. diameters, are expressed in mm Prepared and electronically signed by Charlie Solano MD 02/26/2019 09:10 [facility], [place] Complete Urinalysison 2018 Appearance (U) Clear Normal Clear [facility] Comment on above: Performed By: #### B GLU #### [facility] [address], [place] Bacteria LM.HPF (Urine sed) [#/Area] Few Normal Negative [facility] Comment on above: Performed By: #### B GLU #### [facility] [address], [place] Bilirubin,Urine Negative Normal Negative [facility] Comment on above: Performed By: #### B GLU #### [facility] [address] [place] [address] Color (U) Colorless Normal Lt. Yellow [facility] Comment on above: Performed By: #### B GLU #### [facility] [address], [place] Glucose Ql (U) 300 mg/dL Normal Normal (<70) [facility] Comment on above: Performed By: #### B GLU #### [place] [address], [place] Ketone,Urine Negative Normal Negative [facility] Comment on above: Performed By: #### B GLU #### [place] [address] [place], [place] Leukocytes,Urine 75 Michael/uL Normal Negative [facility] Comment on above: Performed By: #### B GLU #### [place] [address] [place], [place] Nitrites,Urine Negative Normal Negative [facility] Comment on above: Performed By: #### B GLU #### [place] [address] [place], [place] Occult Blood,Urine Negative Normal Negative [facility] Comment on above: Performed By: #### B GLU #### [place] [address] [place], [place] pH (U) 5.0 Normal 5.0-8.0 [facility] Comment on above: Performed By: #### B GLU #### [place] [address] [place], [place] Protein (U) [Mass/Vol] Negative Normal Negative [facility] Comment on above: Performed By: #### B GLU #### [place] [address] [place], [place] Specific Cross,Urine 1.009 Normal 1.005-1.030 [facility] Comment on above: Performed By: #### B GLU #### [place] [address] [place], [place] Squamous Epithelial 0 - 2 Normal 3-5 [facility] Comment on above: Performed By: #### B GLU #### [place] [address] [place], [place] Urobilinogen,Urine Normal Normal Normal (0-1) [facility] Comment on above: Performed By: #### B GLU #### [facility] [address] [place] [address] WBC LM.HPF (Urine sed) [#/Area] 6 - 10 Normal 0-5 [facility] Comment on above: Performed By: #### B GLU #### [facility] [address] [place] [address] Glucose,Bedsideon 02-25-2019 Glucose [Mass/Vol] 280 mg/dL High 70-100 [facility] Comment on above: Result Comment: Test performed by glucose meter. Results may be 10%-15% lower than serum/plasma values. (CLIA ID [id number]) Performed By: #### B GLU #### [facility] [address] [place] [address] Glucose [Mass/Vol] 266 mg/dL High 70-100 [facility] Comment on above: Result Comment: Test performed by glucose meter. Results may be 10%-15% lower than serum/plasma values. (CLIA ID [id number]) Performed By: #### B GLU #### [facility] [address] [place] [address] Glucose [Mass/Vol] 219 mg/dL High 70-100 [facility] Comment on above: Result Comment: Test performed by glucose meter. Results may be 10%-15% lower than serum/plasma values. (CLIA ID [id number]) Performed By: #### B GLU #### [facility] [address] [place] [address] Glucose [Mass/Vol] 338 mg/dL High 70-100 [facility] Comment on above: Result Comment: Test performed by glucose meter. Results may be 10%-15% lower than serum/plasma values. (CLIA ID [id number]) Performed By: #### B GLU #### [facility] [address] [place] [address] Glucose [Mass/Vol] 272 mg/dL High 70-100 [facility] Comment on above: Result Comment: Test performed by glucose meter. Results may be 10%-15% lower than serum/plasma values. (CLIA ID [id number]) Performed By: #### B GLU #### [facility] [address] [place] [address] Hemoglobin A1Con 02-25-2019 HbA1c (Bld) [Mass fraction] 249 mg/dL Normal [facility] Comment on above: Performed By: #### B GLU #### [facility] [address] [place] [address] HbA1c (Bld) [Mass fraction] 10.3 % High 4.0-5.7 [facility] Comment on above: Result Comment: --Hg bA1C levels may not be accurate in patients who have renal disease, received recent blood transfusions, are anemic, or who have dyshemoglobinemia. Performed By: #### B GLU #### [facility] [address] [place] [address] Hemoglobin A1con 02-25-2019 eAG 249 mg/dL [place], [place] HbA1c (Bld) [Mass fraction] 10.3 % High 4 - 5.7 % [place], [place] Comment on above: --HgbA1C levels may not be accurate in patients who have renal disease, received recent blood transfusions, are anemic, or who have dyshemoglobinemia. Interpretation and review of laboratory results Abnormal [facility] Test Performed by [address] [address] [place], [place] POCT Glucoseon 02-25-2019 Glucose [Mass/Vol] 280 mg/dL High 70 - 100 mg/dL [place] Comment on above: Test performed by gl ucose meter. Results may be 10%-15% lower than serum/plasma values. (CLIA ID [id number]) Interpretation and review of laboratory results Abnormal [facility] Test Performed by [facility], [place] [address] [place], [place] Glucose [Mass/Vol] 266 mg/dL High 70 - 100 mg/dL [place] Comment on above: Test performed by gl ucose meter. Results may be 10%-15% lower than serum/plasma values. (CLIA ID [id number]) Interpretation and review of laboratory results Abnormal [facility] Test Performed by [facility], [place] [address] [facility], [place] Glucose [Mass/Vol] 219 mg/dL High 70 - 100 mg/dL [facility], [place] Comment on above: Test performed by gl ucose meter. Results may be 10%-15% lower than serum/plasma values. (CLIA ID [id number]) Interpretation and review of laboratory results Abnormal [facility] [employer] [place] Test Performed by [facility], [place] [address] [facility], [place] Glucose [Mass/Vol] 338 mg/dL High 70 - 100 mg/dL [facility], [place] Comment on above: Test performed by gl ucose meter. Results may be 10%-15% lower than serum/plasma values. (CLIA ID [id number]) Interpretation and review of laboratory results Abnormal [facility] [employer] [place] Test Performed by [facility], [place] [address] [facility], [place] Urinalysison 02-25-2019 Appearance (U) Clear Clear NA [place], [place] Bacteria, UA Few Negative /[HPF] [place] Bilirubin Urine Negative Negative mg/dL [place] Color (U) Colorless Lt. Yellow NA [place] Glucose, Ur 300 mg/dL Normal (<70) [place] Ketones Ql (U) Negative Negative mg/dL [facility], [place] LEUKOCYTES, UA 75 Negative Michael/uL [place] Nitrite, Urine Negative Negative NA [place] Occult Blood,Urine Negative Negative mg/dL [facility], [place] pH (U) 5.0 [pH] [facility], [place] Protein (U) [Mass/Vol] Negative Negative mg/dL [place], [place] Specific Cross, Urine 1.009 [facility], [place] Squam Epithel, UA 0-2 3 - 5 /[HPF] [facility], [place] Urobilinogen, Urine Normal Normal ( 0-1) mg/dL [facility], [place] WBC, UA 6-10 0 - 5 /[HPF] [place], [place] Test Performed by [facility], [address] [place] [id number] [facility] Carotid Duplex Ultrasound Completeon 02-25-2019 VL Carotid Duplex Ultrasound Complete Patient Name: CRHISTY FRANCIS Ultrasound Exam Date/Time 02/25/2019 13:56:07 EST Exam VL Carotid Duplex Ultrasound Complete Ordering Physician RICHY ENCINAS, MINOO Rivera Accession Number [id number] CPT4 Codes 83638 () Reason For Exam preop CABG Report [facility] Carotid Duplex Report Ordering Physician: Minoo Encinas Director Supplier Quality: Yamilet Cortes RVT Interpreting Physician: Charlie Solano MD Location: [facility] Indications: Carotid stenosis. Conclusions 1. Mild carotid disease present with less than 50% stenosis involving the left internal carotid artery. 2. Normal study involving the left internal carotid artery. 3. Antegrade flow noted in the left vertebral artery. 4. Normal antegrade flow involving the right vertebral artery. History: Risk factors: Hypertension. Diabetes mellitus. Study data: Complete carotid duplex study. Grayscale 2D imaging, color Doppler imaging, and spectral Doppler analysis. Location: Vascular laboratory. Findings Carotid/vertebral arteries: Right common carotid: The vessel is normal; it has no evidence of disease. Right internal carotid: The vessel has minimalmixed plaque. Right external carotid: The vessel is normal; it has no evidence of disease. Right vertebral: The arterial flow direction is antegrade. Left vertebral: The arterial flow direction is antegrade. Left common carotid: The vessel is normal; it has no evidence of disease. Left internal carotid: The vessel is normal; it has no evidence of disease. Left external carotid: The vessel is normal; it has no evidence of disease. Arterial flow: + +--------- --+ + +Location +PSV(cm/sec)+EDV(cm/sec)+ + +--------- --+ + +R CCA , prox +72 +12 + + +--------- --+ + +R CCA , mid +43 +12 + + +--------- --+ + +R ICA , prox +65 +18 + + +--------- --+ + +R ICA , mid +66 +18 + + +--------- --+ + +R ICA , distal+42 +11 + + +--------- --+ + +R ECA +78 +9 + + +--------- --+ + +R vertebral +38 +9 + + +--------- --+ + +L CCA , prox +87 +20 + + +--------- --+ + +L CCA , mid +55 +15 + + +--------- --+ + +L ICA , prox +75 +22 + + +--------- --+ + +L ICA , mid +66 +23 + + +--------- --+ + +L ICA , distal+56 +22 + + +--------- --+ + +L ECA +57 +9 + + +--------- --+ + +L vertebral +54 +16 + + +--------- --+ + Velocity ratios: + + -------+------+ + +Right .+Left .+ + + -------+------+ +Max ICA / Mid CCA Ratio+1.54 +1.37 + + + -------+------+ Prepared and electronically signed by Charlie Solano MD 02/26/2019 09:08 Final Dictated: 02/26/2019 9:08 am Dictating Physician: CHARLIE SOLANO Signed Date and Time: 02/26/2019 9:08 am Signed by: CHARLIE SOLANO Normal [facility] VL PVR Arterial Doppler Lwr w/o Exerciseon 02-25-2019 VL PVR Arterial Doppler Lwr w/o Exercise Patient Name: CHRISTY FRANCIS Ultrasound Exam Date/Time 02/25/2019 13:56:47 EST Exam VL PVR Arterial Doppler Lwr w/o Exercise Ordering Physician MD BASILIO JUSTIN Accession Number [id number] CPT4 Codes 10305 () Reason For Exam PVD preop CABG Report [facility] Multilevel Lower Extremity Arterial Evaluation Report Ordering Physician: iTmmy Basilio MD Director Supplier Quality: Yamilet Cortes RVT Interpreting Physician: Charlie Solano MD Location: [facility] Indications: PVD. Conclusions 1. Left resting ISIDRO is 0.64. These findings show moderate arterial insufficiency. Segmental pressures and waveforms show moderate arterial insufficiency due to femoralpopliteal disease. PVR waveforms appear diminished in the left ankle, left 1st toe, left 2nd toe, left 3rd toe, left 4th toe, and left 5th toe. 2. There appears to be a abnormal toe index involving the left great toe. 3. PVR waveforms of the left ankle appear diminished. 4. Normal flow to the ankle with small vessel disease present on the right. 5. There appears to be a abnormal toe index involving the right great toe. 6. Right resting ISIDRO is 0.93. This is within the normal range. 7. PVR waveforms of the right leg appear normal at rest. History: Risk factors: Current tobacco use. Hypertension. Diabetes mellitus. Obese. Hyperlipidemia. Study data: Lower extremity multilevel physiologic evaluation. Pressure measurement and pulse volume recording. Location: Vascular laboratory. Procedure: A vascular evaluation was performed with the patient in the supine position. Images were obtained using a [employer] 2100 vascular ultrasound machine. Arterial pressure indices: + + -----+ + +Location +Pressure (REST)*+Index (REST)+ + + -----+ + +R brachial +120 + + + + -----+ + +R high thigh+142 +1.18 + + + -----+ + +R low thigh +145 +1.21 + + + -----+ + +R calf +136 +1.13 + + + -----+ + +R DP +107 +0.89 + + + -----+ + +R PT +112 +0.93 + + + -----+ + +R great toe +67 +0.56 + + + -----+ + +L high thigh+151 +1.26 + + + -----+ + +L low thigh +113 +0.94 + + + -----+ + +L calf +78 +0.65 + + + -----+ + +L DP +77 +0.64 + + + -----+ + +L PT +65 +0.54 + + + -----+ + +L great toe +40 +0.33 + + + -----+ + Prepared and electronically signed by Charlie Solano MD 02/26/2019 09:13 Final Dictated: 02/26/2019 9:13 am Dictating Physician: CHARLIE SOLANO Signed Date and Time: 02/26/2019 9:13 am Signed by: CHARLIE SOLANO [facility] VL Vein Map for Preop Bypass [place] 02-25-2019 VL Vein Map for Preop Bypass Lower Ext Patient Name: CHRISTY FRANCIS Ultrasound Exam Date/Time 02/25/2019 13:56:27 EST Exam VL Vein Map for Preop Bypass Lower Ext Ordering Physician RICHY ENCINAS, MINOO Rivera Accession Number [id number] CPT4 Codes 63239 () Reason For Exam pre op CABG please mauricio legs Report [facility] Bilateral LE Vein Mapping For Bypass Report Ordering Physician: Minoo Encinas Director Supplier Quality: Yamilet Cortes RVT Interpreting Physician: Charlie Solano MD Location: [facility] Indications: Pre-op bypass. Conclusions 1. The right great saphenous vein and left great saphenous veinappears patent. 2. Vein sizes as noted below. Study data: Bilateral lower extremity vein mapping. Grayscale 2D imaging. Location: Vascular laboratory. Procedure: A vascular evaluation was performed with the patient in the supine position. Images were obtained using a [email or web address] E9 vascular ultrasound machine. Vein mapping: + +--------- ---+ +Location +Diameter AP*+ + +--------- ---+ +R saph-femoral junction - prox. (thigh)+2.78 mm + + +--------- ---+ +L saph-femoral junction - prox. (thigh)+3.95 mm + + +--------- ---+ +R GSV - distal (thigh) +3.26 mm + + +--------- ---+ +R GSV - mid (thigh) +2.86 mm + + +--------- ---+ +R GSV - prox. (thigh) +3.22 mm + + +--------- ---+ +R GSV - distal (knee) +4.55 mm + + +--------- ---+ +R GSV - distal (calf) +1.90 mm + + +--------- ---+ +R GSV - mid (calf) +2.31 mm + + +--------- ---+ +R GSV - prox. (calf) +3.33 mm + + +--------- ---+ +L GSV - distal (thigh) +3.08 mm + + +--------- ---+ +L GSV - mid (thigh) +3.74 mm + + +--------- ---+ +L GSV - prox. (thigh) +3.59 mm + + +--------- ---+ +L GSV - distal (knee) +1.91 mm + + +--------- ---+ +L GSV - distal (calf) +1.83 mm + + +--------- ---+ +L GSV - mid (calf) +2.38 mm + + +--------- ---+ +L GSV - prox. (calf) +2.79 mm + + +--------- ---+ *Length measurements, e.g. diameters, are expressed in mm Prepared and electronically signed by Charlie Solano MD 02/26/2019 09:10 Final Dictated: 02/26/2019 9:10 am Dictating Physician: CHARLIE SOLANO Signed Date and Time: 02/26/2019 9:10 am Signed by: CHARLIE SOLANO Normal [facility] Glucose,Bedsideon 02-24-2019 Glucose [Mass/Vol] 285 mg/dL [facility] [address] Comment on above: Result Comment: Test performed by glucose meter. Results may be 10%-15% lower than serum/plasma values. (CLIA ID [id number]) Performed By: #### B GLU #### [address] [place] [address] Glucose [Mass/Vol] 290 mg/dL High 70-100 [facility] Comment on above: Result Comment: Test performed by glucose meter. Results may be 10%-15% lower than serum/plasma values. (CLIA ID [id number]) Performed By: #### B GLU #### [address] [place] [address] Glucose [Mass/Vol] 302 mg/dL High 70-100 [facility] Comment on above: Result Comment: Test performed by glucose meter. Results may be 10%-15% lower than serum/plasma values. (CLIA ID [id number]) Performed By: #### B GLU #### [facility] [address] [place] [address] POCT Glucoseon 02-24-2019 Glucose [Mass/Vol] 272 mg/dL High 70 - 100 mg/dL [facility] [place], [place] Comment on above: Test performed by gl ucose meter. Results may be 10%-15% lower than serum/plasma values. (CLIA ID [id number]) Interpretation and review of laboratory results Abnormal [facility] [place] Test Performed by [facility], [address] [place] [address] [facility] [place], [place] Glucose [Mass/Vol] 285 mg/dL High 70 - 100 mg/dL [facility] [place] Comment on above: Test performed by gl ucose meter. Results may be 10%-15% lower than serum/plasma values. (CLIA ID [id number]) Interpretation and review of laboratory results Abnormal [facility] Test Performed by [facility], [address] [facility] [place] [address] [facility] [place] Glucose [Mass/Vol] 290 mg/dL High 70 - 100 mg/dL [facility] [place] Comment on above: Test performed by gl ucose meter. Results may be 10%-15% lower than serum/plasma values. (CLIA ID [id number]) Interpretation and review of laboratory results Abnormal [facility]- [place], [place] Test Performed by [facility], [address] [place] [address] [facility] [place], [place] Glucose [Mass/Vol] 302 mg/dL High 70 - 100 mg/dL [facility] [place], [place] Comment on above: Test performed by gl ucose meter. Results may be 10%-15% lower than serum/plasma values. (CLIA ID [id number]) Interpretation and review of laboratory results Abnormal [facility] [place], [place] Test Performed by [facility], [address] [place] [address] [facility]- [place], [place] Bedside spirometryon [address] [facility] Incoming Cardiology Results From Vera/Brooke - 02/28/2019 12:48 PM EST Name: CHRISTY FRANCIS PatientID: [id number] Gender: Female Birthdate: 1950 Study Date: 02/23/2019 3:15:42 P Age: 69 Race: Other Race Height: 62.0 in, 157.5 cm Weight: 176.0 lbs, 80.0 kg Smoke Status: Smokes Pack Years: 26.Tbco Prod: Cigarettes Ordering Physician: [id number] Interpreting Physician: [id number] Chief Crna: Jennifer Testing Location: [facility] Diagnosis: CAD, HFrEF, pre-surgical values Spirometry Units Pred PreDrug Pre%Pred Post Post%Pred %Change FVC L,btps 2.79 1.80 64. FEV1 L,btps 2.11 1.33 63. FEV1/FVC (%) % 76. 74. 97. MME05-78% L/s 1.83 1.01 55. FEFmax L/s 5.42 2.87 53. MVV in,btps 80.45 Lung Volumes (Body Box) Units Pred PreDrug Pre%Pred TLC L,btps 4.74 VC L,btps 2.79 IC L,btps 2.15 FRC L,btps 2.60 ERV L,btps 0.64 RV L,btps 1.95 RV/TLC (%) % 41. VTG L,btps RAW H2O/L/s 1.48 SGaw cmH2O/L 0.26 Diffusion (DLCO) Units Pred PreDrug Pre%Pred DLCO ml/min/mmHg,stpd 21.06 DLCOHb ml/min/mmHg,stpd 21.06 VAsb L,btps 4.62 D/VAsb ml/min/mmHg/L,stpd 4.56 D/VAsbHb ml/min/mmHg/L,stpd 4.56 VInsp L Hgb g/dl COHb % Lung Mechanics Units Pred PreDrug Pre%Pred PImax /MIP cmH2O -68.81 PEmax /MEP cmH2O 90.11 HIRED HELP NOTES Calibration check passed with acceptable system performance. Spirometry best effort, met acceptability and repeatability guidelines. Pt sitting upright in bedside chair with both feet on ground. [address]- WILBER Tests to perform: RT17 - BEDSIDE SPIROMETRY PHYSICIAN INTERPRETATION Forced expiration spirometry demonstrates no large airways obstructive ventilatory defect. Spirograms are good quality plateau gradually at a forced vital capacity of 64% of predicted. This suggests restriction. Lung jessica are necessary to confirm restriction. The flow volume loop reveals decreased FEF 25?75 at 55% predicted and concave sloping of the terminal portion of flow volume loop consistent with small airways obstruction. The FEV1 is 1.33 L or 63% of predicted. FEV1 to FVC ratio 74. The FEF 25?75 is 55% of predicted. Impression: #1. Possible moderate restriction #2. Small airways obstruction [place], [place] Name: CHRISTY FRANCIS PatientID: [id number] Gender: Female Birthdate: 1950 Study Date: 02/23/2019 3:15:42 P Age: 69 Race: Other Race Height: 62.0 in, 157.5 cm Weight: 176.0 lbs, 80.0 kg Smoke Status: Smokes Pack Years: 26.Tbco Prod: Cigarettes Ordering Physician: [id number] Interpreting Physician: [id number] Chief Crna: Jennifer Testing Location: [facility] Diagnosis: CAD, HFrEF, pre-surgical values Spirometry Units Pred PreDrug Pre%Pred Post Post%Pred %Change FVC L,btps 2.79 1.80 64. FEV1 L,btps 2.11 1.33 63. FEV1/FVC (%) % 76. 74. 97. MSR42-00% L/s 1.83 1.01 55. FEFmax L/s 5.42 2.87 53. MVV in,btps 80.45 Lung Volumes (Body Box) Units Pred PreDrug Pre%Pred TLC L,btps 4.74 VC L,btps 2.79 IC L,btps 2.15 FRC L,btps 2.60 ERV L,btps 0.64 RV L,btps 1.95 RV/TLC (%) % 41. VTG L,btps RAW H2O/L/s 1.48 SGaw cmH2O/L 0.26 Diffusion (DLCO) Units Pred PreDrug Pre%Pred DLCO ml/min/mmHg,stpd 21.06 DLCOHb ml/min/mmHg,stpd 21.06 VAsb L,btps 4.62 D/VAsb ml/min/mmHg/L,stpd 4.56 D/VAsbHb ml/min/mmHg/L,stpd 4.56 VInsp L Hgb g/dl COHb % Lung Mechanics Units Pred PreDrug Pre%Pred PImax /MIP cmH2O -68.81 PEmax /MEP cmH2O 90.11 HIRED HELP NOTES Calibration check passed with acceptable system performance. Spirometry best effort, met acceptability and repeatability guidelines. Pt sitting upright in bedside chair with both feet on ground. [address]- WILBER Tests to perform: RT17 - BEDSIDE SPIROMETRY PHYSICIAN INTERPRETATION Forced expiration spirometry demonstrates no large airways obstructive ventilatory defect. Spirograms are good quality plateau gradually at a forced vital capacity of 64% of predicted. This suggests restriction. Lung jessica are necessary to confirm restriction. The flow volume loop reveals decreased FEF 25?75 at 55% predicted and concave sloping of the terminal portion of flow volume loop consistent with small airways obstruction. The FEV1 is 1.33 L or 63% of predicted. FEV1 to FVC ratio 74. The FEF 25?75 is 55% of predicted. Impression: #1. Possible moderate restriction #2. Small airways obstruction [place], [place] CBCon 02-23-2019 Erythrocyte distribution width (RBC) [Ratio] 13.1 % 11.5 - 14.5 % [place] Hematocrit (Bld) [Volume fraction] 44.3 % 35 - 47 % [place] Hemoglobin (Bld) [Mass/Vol] 15.1 g/dL 11.7 - 16 g/dL [place] MCH (RBC) [Entitic mass] 30.8 pg 26 - 34 pg [place] MCHC (RBC) [Mass/Vol] 34.0 % 32 - 36 % [place] MCV (RBC) [Entitic vol] 90.3 fL 79 - 98 fL [place] Platelet mean volume (Bld) [Entitic vol] 9.4 fL 7.4 - 10.4 fL [place] Platelets (Bld) [#/Vol] 212 10*3/uL 140 - 440 10*3/uL [place] RBC (Bld) [#/Vol] 4.90 10*6/uL 3.8 - 5.2 10*6/uL [place] WBC (Bld) [#/Vol] 8.6 10*3/uL 3.6 - 10.7 10*3/uL [facility] Test Performed by [facility], [address] [place] [address] [facility] CR Chest Portableon 02-24-20 19 CR Chest Portable Patient Name: CHRISTY FRANCIS Diagnostic Radiology Exam Date/Time 02/23/2019 17:30:22 EST Exam CR Chest Portable Ordering Physician RICHY ENCINAS, MINOO Rivera Accession Number [id number] CPT4 Codes 14295 () Reason For Exam preop CABG Report PORTABLE CHEST: INDICATION: Preop COMPARISON: No previous studies are available for comparison. Obtained at 1635 hours. A single portable AP radiograph of the chest was obtained. The heart is normal in size. The mediastinal silhouette is normal. The lungs are clear. There are no effusions or infiltrates. There is no pleural thickening. Arthritic changes of the spine and shoulders are present. IMPRESSION: Chronic interstitial changes are present. Report Dictated on Final Dictated: 02/23/2019 9:18 pm Dictating Physician: DO MAN ALFRED Signed Date and Time: 02/23/2019 9:18 pm Signed by: DO MAN ALFRED Transcribed Date and Time: 02/23/2019 9:18 Normal [facility] Comp Panel with Mg Reflexon 02-23-2019 Calcium [Mass/Vol] 9.1 mg/dL Normal 8.4-10.4 [facility] Comment on above: Performed By: #### H AUSTIN CMP3M #### [facility] [address], [place] ALP [Catalytic activity/Vol] 57 U/L Normal 38-126 [facility] Comment on above: Performed By: #### H AUSTIN CMP3M #### [facility] [address], [place] ALT [Catalytic activity/Vol] 53 U/L Normal 13-69 [facility] Comment on above: Performed By: #### Papito AVILA CMP3M #### [facility] [address], [place] Anion gap [Moles/Vol] 8 Normal [facility] Comment on above: Performed By: #### H AUSTIN CMP3M #### [facility] [address], [place] AST [Catalytic activity/Vol] 49 U/L High 15-46 [facility] Comment on above: Performed By: #### H AUSTIN CMP3M #### [facility] [address], [place] Bilirubin [Mass/Vol] 0.5 mg/dL Normal 0.2-1.3 [facility] Comment on above: Performed By: #### Papito AVILA CMP3M #### [facility] [address], [place] CO2 [Moles/Vol] 21 mmol/L Low 22-30 [facility] Comment on above: Performed By: #### Papito AVILA CMP3M #### [facility] [address], [place] Glucose [Mass/Vol] 288 mg/dL High 70-100 [facility] Comment on above: Performed By: #### Papito AVILA CMP3M #### [facility] [address], [place] Protein [Mass/Vol] 7.0 g/dL Normal 6.3-8.2 [facility] Comment on above: Performed By: #### Papito AVILA CMP3M #### [facility] [address], [place] Urea nitrogen [Mass/Vol] 24 mg/dL High 7-20 [facility] Comment on above: Performed By: #### Papito AVLIA CMP3M #### [facility] [address], [place] Creatinine [Mass/Vol] 1.03 mg/dL Normal 0.52-1.25 [facility] Comment on above: Performed By: #### H EMOG, CMP3M #### [facility] [address], [place] GFR/1.73 sq M predicted among blacks MDRD (S/P/Bld) [Vol rate/Area] mL/min/{1.73_m2} Normal >60 [facility] Comment on above: Performed By: #### Papito AVILA CMP3M #### [facility] [address], [place] GFR/1.73 sq M predicted among non-blacks MDRD (S/P/Bld) [Vol rate/Area] 53.1 mL/min/{1.73_m2} Normal >60 [facility] Comment on above: Result Comment: Sour ce- MDRD equation with creatinine calibration to IDMS(NKDEP) eGFR not recommended for drug dose adjustment Performed By: #### Papito AVILA CMP3M #### [place] [address], [place] Albumin [Mass/Vol] 3.9 g/dL Normal 3.5-5.0 [facility] Comment on above: Performed By: #### Papito AVILA CMP3M #### [place] [address], [place] Chloride [Moles/Vol] 106 mmol/L Normal 98-107 [facility] Comment on above: Performed By: #### Papito AVILA CMP3M #### [place] [address], [place] Potassium [Moles/Vol] 4.8 mmol/L Normal 3.5-5.1 [facility] Comment on above: Performed By: #### Papito AVILA CMP3M #### [facility] [address], [place] Sodium [Moles/Vol] 136 mmol/L Normal 135-145 [facility] Comment on above: Performed By: #### Papito AVILA CMP3M #### [facility] [address], [place] Comprehensive Metabolic Pane l w/ Reflex to MGon 02-23-2019 Albumin [Mass/Vol] 3.9 g/dL 3.5 - 5 g/dL [place] ALP [Catalytic activity/Vol] 57 U/L 38 - 126 U/L [place] ALT [Catalytic activity/Vol] 53 U/L 13 - 69 U/L [place] Anion gap [Moles/Vol] 8 mmol/L [place], [place] AST [Catalytic activity/Vol] 49 U/L High 15 - 46 U/L [place] Bilirubin Ql (U) 0.5 mg/dL 0.2 - 1.3 mg/dL [place] Calcium [Mass/Vol] 9.1 mg/dL 8.4 - 10. 4 mg/dL [place] Chloride [Moles/Vol] 106 mmol/L 98 - 10 7 mmol/L [place] CO2 [Moles/Vol] 21 mmol/L Low 22 - 30 mmol/L [place] Creatinine [Mass/Vol] 1.03 mg/dL 0.52 - 1.25 mg/dL [place] EGFR IF NonAfrican [place] 53.1 mL/min >60 [place] Comment on above: Source- MDRD equatio n with creatinine calibration to IDMS(NKDEP) eGFR not recommended for drug dose adjustment GFR/1.73 sq M predicted among blacks MDRD (S/P/Bld) [Vol rate/Area] mL/min/{1.73_m2} >60 mL/min [place] Glucose [Mass/Vol] 288 mg/dL High 70 - 100 mg/dL [place] Interpretation and review of laboratory results Abnormal [place] Potassium [Moles/Vol] 4.8 mmol/L 3.5 - 5.1 mmol/L [place] Protein [Mass/Vol] 7.0 g/dL 6.3 - 8.2 g/dL [place] Sodium [Moles/Vol] 136 mmol/L 135 - 145 mmol/L [place] Urea nitrogen [Mass/Vol] 24 mg/dL High 7 - 20 mg/dL [place] Test Performed by [address] [place] [address] [place] Glucose,Bedsideon 02-23-2019 Glucose [Mass/Vol] 296 mg/dL High 70-100 [place] Comment on above: Test performed by gl ucose meter. Results may be 10%-15% lower than serum/plasma values. (CLIA ID [id number]) Result Comment: Test performed by glucose meter. Results may be 10%-15% lower than serum/plasma values. (CLIA ID [id number]) Performed By: #### B GLU #### [place] [address] [place] [address] Glucose [Mass/Vol] 328 mg/dL High 70-100 [facility] Comment on above: Result Comment: Test performed by glucose meter. Results may be 10%-15% lower than serum/plasma values. (CLIA ID [id number]) Performed By: #### B GLU #### [place] [address] [place] [address] Glucose [Mass/Vol] 348 mg/dL High 70-100 [facility] Comment on above: Result Comment: Test performed by glucose meter. Results may be 10%-15% lower than serum/plasma values. (CLIA ID [id number]) Performed By: #### B GLU #### [place] [address] [place] [address] Glucose [Mass/Vol] 315 mg/dL High 70-100 [facility] Comment on above: Result Comment: Test performed by glucose meter. Results may be 10%-15% lower than serum/plasma values. (CLIA ID [id number]) Performed By: #### B GLU #### [place] [address] [place] [address] Hemogramon 02-23-2019 Erythrocyte distribution width (RBC) [Ratio] 13.1 % Normal 11.5-14.5 [facility] Comment on above: Performed By: #### H EMOG, CMP3M #### [place] [address] [place] [address] Hematocrit (Bld) [Volume fraction] 44.3 % Normal 35.0-47.0 [facility] Comment on above: Performed By: #### Papito AVILA CMP3M #### [place] [address], [place] Hemoglobin (Bld) [Mass/Vol] 15.1 g/dL Normal 11.7-16.0 [facility] Comment on above: Performed By: #### Papito AVILA CMP3M #### [place] [address], [place] MCH (RBC) [Entitic mass] 30.8 pg Normal 26.0-34.0 [facility] Comment on above: Performed By: #### Papito AVILA CMP3M #### [place] [address], [place] MCHC (RBC) [Mass/Vol] 34.0 % Normal 32.0-36.0 [facility] Comment on above: Performed By: #### Papito AVILA CMP3M #### [place] [address], [place] MCV (RBC) [Entitic vol] 90.3 fL Normal 79.0-98.0 [facility] Comment on above: Performed By: #### Papito AVILA CMP3M #### [place] [address], [place] Platelet mean volume (Bld) [Entitic vol] 9.4 fL Normal 7.4-10.4 [facility] Comment on above: Performed By: #### Papito AVILA CMP3M #### [place] [address], [place] Platelets (Bld) [#/Vol] 212 10*3/uL Normal 140-440 [facility] Comment on above: Performed By: #### Papito AVILA CMP3M #### [place] [address] [place], [place] RBC (Bld) [#/Vol] 4.90 10*6/uL Normal 3.80-5.20 [facility] Comment on above: Performed By: #### Papito AVILA CMP3M #### [place] [address] [place] [address] WBC (Bld) [#/Vol] 8.6 10*3/uL Normal 3.6-10.7 [facility] Comment on above: Performed By: #### H AUSTIN CMP3M #### [facility] [address] [place] [address] POCT Glucoseon 02-23-2019 Interpretation and review of laboratory results Abnormal [facility] Test Performed by [facility], [place] [address] [facility] Glucose [Mass/Vol] 328 mg/dL High 70 - 100 mg/dL [facility] Comment on above: Test performed by gl ucose meter. Results may be 10%-15% lower than serum/plasma values. (CLIA ID [id number]) Interpretation and review of laboratory results Abnormal [facility] Test Performed by [facility], [place] [address] [facility] Glucose [Mass/Vol] 348 mg/dL High 70 - 100 mg/dL [facility] Comment on above: Test performed by gl ucose meter. Results may be 10%-15% lower than serum/plasma values. (CLIA ID [id number]) Interpretation and review of laboratory results Abnormal [facility] Test Performed by [facility], [place] [address] [facility] Glucose [Mass/Vol] 315 mg/dL High 70 - 100 mg/dL [facility] Comment on above: Test performed by gl ucose meter. Results may be 10%-15% lower than serum/plasma values. (CLIA ID [id number]) Interpretation and review of laboratory results Abnormal [facility] Test Performed by [facility], [place] [address] [facility] XR CHEST PORTABLEon 02-24-20 19 Patient Name: CHRISTY FRANCIS ---Diagnostic Radiology--- Exam Date/Time 02/23/2019 17:30:22 EST Exam CR Chest Portable Ordering Physician RICHY ENCINAS ANDREW G Accession Number [id number] CPT4 Codes 26824 () Reason For Exam preop CABG Report PORTABLE CHEST: INDICATION: Preop COMPARISON: No previous studies are available for comparison. Obtained at 1635 hours. A single portable AP radiograph of the chest was obtained. The heart is normal in size. The mediastinal silhouette is normal. The lungs are clear. There are no effusions or infiltrates. There is no pleural thickening. Arthritic changes of the spine and shoulders are present. IMPRESSION: Chronic interstitial changes are present. Report Dictated on --- Final --- Dictated: 02/23/2019 9:18 pm Dictating Physician: DO MAN ALFRED Signed Date and Time: 02/23/2019 9:18 pm Signed by: DO MAN ALFRED Transcribed Date and Time: 02/23/2019 9:18 [facility], [place] [facility] Incoming Radiology Results From [facility] - 02/23/2019 9:20 PM EST Patient Name: CHRISTY FRANCIS ---Diagnostic Radiology--- Exam Date/Time 02/23/2019 17:30:22 EST Exam CR Chest Portable Ordering Physician RICHY ENCINAS ANDREW G Accession Number [id number] CPT4 Codes 71698 () Reason For Exam preop CABG Report PORTABLE CHEST: INDICATION: Preop COMPARISON: No previous studies are available for comparison. Obtained at 1635 hours. A single portable AP radiograph of the chest was obtained. The heart is normal in size. The mediastinal silhouette is normal. The lungs are clear. There are no effusions or infiltrates. There is no pleural thickening. Arthritic changes of the spine and shoulders are present. IMPRESSION: Chronic interstitial changes are present. Report Dictated on --- Final --- Dictated: 02/23/2019 9:18 pm Dictating Physician: DO MAN ALFRED Signed Date and Time: 02/23/2019 9:18 pm Signed by: DO MAN ALFRED Transcribed Date and Time: 02/23/2019 9:18 [facility] Glucose,Bedsideon 02-22-2019 Glucose [Mass/Vol] 283 mg/dL High 70-100 [facility] Comment on above: Result Comment: Test performed by glucose meter. Results may be 10%-15% lower than serum/plasma values. (CLIA ID [id number]) Performed By: #### B GLU #### [facility] [address] [place] [address] Glucose [Mass/Vol] 200 mg/dL High 70-100 [facility] Comment on above: Result Comment: Test performed by glucose meter. Results may be 10%-15% lower than serum/plasma values. (CLIA ID [id number]) Performed By: #### B GLU #### [facility] [address] [place] [address] POCT Glucoseon 02-22-2019 Glucose [Mass/Vol] 283 mg/dL High 70 - 100 mg/dL [place] Comment on above: Test performed by gl ucose meter. Results may be 10%-15% lower than serum/plasma values. (CLIA ID [id number]) Interpretation and review of laboratory results Abnormal [facility] Test Performed by [facility] [place] [address] [place] Glucose [Mass/Vol] 200 mg/dL High 70 - 100 mg/dL [place] Comment on above: Test performed by gl ucose meter. Results may be 10%-15% lower than serum/plasma values. (CLIA ID [id number]) Interpretation and review of laboratory results Abnormal [facility] Test Performed by [facility] [place] [address] [place] Vital Signs Date Time Vital Sign Value Performing Clinician Facility 11-02-2024 10:040 Body height 157.[address] Marielos Perla DO Work Phone: [facility] 11-02-2024 10:17-0400 Body mass index (BMI) [Ratio] 30.5 kg/m2 Dr. Marielos Perla DO Work Phone: [facility] 11-02-2024 10:17-0400 Body weight 75.[address] Marielos Perla DO Work Phone: [facility] 11-02-2024 10:17-0400 Diastolic blood pressure 65 mm[Hg] Dr. Marielos Perla DO Work Phone: [facility] 11-02-2024 10:17-0400 Respiratory rate 18 /min Dr. Marielos Perla DO Work Phone: [facility] 11-02-2024 10:17-0400 Systolic blood pressure 112 mm[Hg] Dr. Marielos Perla DO Work Phone: [facility] 06-05-2024 10:52-0500 Body height 157.[address] Marielos Perla DO Work Phone: [facility] 06-05-2024 10:52-0500 Body mass index (BMI) [Ratio] 34.2 kg/m2 Dr. Marielos Perla DO Work Phone: [facility] 06-05-2024 10:52-0500 Body weight 84.[address] Marielos Perla DO Work Phone: [facility] 06-05-2024 10:52-0500 Diastolic blood pressure 73 mm[Hg] Dr. Marielos Perla DO Work Phone: [facility] 06-05-2024 10:52-0500 Heart rate 98 /min Dr. Marielos Perla DO Work Phone: [facility] 06-05-2024 10:52-0500 Respiratory rate 18 /min Dr. Marielos Perla DO Work Phone: [facility] 06-05-2024 10:52-0500 Systolic blood pressure 119 mm[Hg] Dr. Marielos Perla DO Work Phone: [facility] 11-18-2022 13:38-0400 Body height 157.[address] Marielos Perla Work Phone: [facility] 11-18-2022 13:38-0400 Body mass index (BMI) [Ratio] 35.8 kg/m2 Dr. Marielos Perla Work Phone: [facility] 11-18-2022 13:38-0400 Body weight 88.[address] Marielos Perla Work Phone: [facility] 11-18-2022 13:38-0400 Diastolic blood pressure 80 mm[Hg] Dr. Marielos Perla Work Phone: [facility] 11-18-2022 13:38-0400 Heart rate 93 /min Dr. Marielos Perla Work Phone: [facility] 11-18-2022 13:38-0400 Respiratory rate 18 /min Dr. Marielos Perla Work Phone: [facility] 11-18-2022 13:38-0400 SaO2% (BldA) [Mass fraction] 95 % Dr. Marielos Perla Work Phone: [facility] 11-18-2022 13:38-0400 Systolic blood pressure 146 mm[Hg] Dr. Marielos Perla Work Phone: [facility] 08-20-2022 09:54-0400 Body height 157.[address] Marielos Perla Work Phone: [facility] 08-20-2022 09:54-0400 Body mass index (BMI) [Ratio] 35.3 kg/m2 Dr. Marielos Perla Work Phone: [facility] 08-20-2022 09:54-0400 Body weight 87.[address] Marielos Perla Work Phone: [facility] 08-20-2022 09:54-0400 Diastolic blood pressure 79 mm[Hg] Dr. Marielos Perla Work Phone: [facility] 08-20-2022 09:54-0400 Heart rate 76 /min Dr. Marielos Perla Work Phone: [facility] 08-20-2022 09:54-0400 Respiratory rate 18 /min Dr. Marielos Perla Work Phone: [facility] 08-20-2022 09:54-0400 Systolic blood pressure 139 mm[Hg] Dr. Marielos Perla Work Phone: [facility] 03-29-2022 18:34-0500 Body temperature 98.3 [degF] [facility] 03-29-2022 18:34-0500 Diastolic blood pressure 85 mm[Hg] [facility] 03-29-2022 18:34-0500 Heart rate 74 /min [facility] 03-29-2022 18:34-0500 Respiratory rate 18 /min [facility] 03-29-2022 18:34-0500 SaO2% (BldA) [Mass fraction] 99 % [facility] 03-29-2022 18:34-0500 Systolic blood pressure 125 mm[Hg] [facility] 03-29-2022 17:27-0500 Body height 157.48 cm [facility] 03-29-2022 17:27-0500 Body mass index (BMI) [Ratio] 33.8 kg/m2 [facility] 03-29-2022 17:27-0500 Body weight 83.91 kg [facility] 03-03-2019 15:30-0500 BP Diastolic 55 mm[Hg] [place] 03-03-2019 15:30-0500 BP Systolic 124 mm[Hg] [place] 03-03-2019 15:30-0500 Pulse (Heart Rate) 83 /min [place], [place] 03-03-2019 15:30-0500 Pulse Oximetry 96 % [place] 03-03-2019 15:30-0500 Respiratory Rate 18 /min [place] 03-03-2019 11:51-0500 Body Temperature 97.81 [degF] [place] 03-03-2019 00:00-0500 BMI (Body Mass Index) 34.14 kg/m2 Mil Pettit [facility], [place] 03-03-2019 00:00-0500 Body weight 81.97 kg Mil Pettit [facility] , [place] 02-28-2019 12:00-0500 Height 154.9 cm Mil Pettit [facility] , [place] Encounters Encounter Date Encounter Type Care Provider Facility Start: 11-02-2024 End: 11-02-[address] Marielos Perla DO Work Phone: -[facility] Start: 11-02-2024 End: 11-02-2024 Patient encounter procedure Jennifer HOLLAND -[facility] Work Phone: Start: 09-18-2024 End: 09-18-[address] Marielos Perla DO Work Phone: [facility] Work Phone: Start: 09-18-2024 End: 09-18-2024 Patient encounter procedure Rand Mckeon TECHNICAL MARKETING CONSULTANT-C -[facility] Work Phone: Start: 09-18-2024 End: 09-18-2024 ambulatory Rand Mckeon Facility:[facility] Start: 06-05-2024 End: 06-05-2024 Patient encounter procedure Charlie Johnson TECHNICAL MARKETING CONSULTANT-C -[facility] Work Phone: Start: 06-05-2024 End: 06-05-2024 ambulatory Charlie Johnson TECHNICAL MARKETING CONSULTANT Facility:[facility] Start: 03-09-2024 End: 03-09-2024 ambulatory Charlie Johnson NP Facility:[facility] Start: 02-19-2024 End: 02-21-2024 ambulatory Grant Castelan Facility:[facility] Start: 01-27-2024 End: 01-27-2024 [facility] Start: 11-15-2023 End: 11-15-2023 ambulatory Marielos Malys Facility:[facility] Start: 11-05-2023 End: 11-05-2023 ambulatory Marielos Malys Facility:[facility] Start: 10-28-2023 ambulatory Marielos Malys Facility:[facility] Start: 10-12-2023 End: 10-12-2023 ambulatory Marielos Perla Facility:[facility] Start: 10-11-2023 End: 10-11-2023 [facility] Start: 10-01-2023 End: 10-01-2023 Emergency department patient visit Marielos Perla Facility:[facility] Start: 10-01-2023 End: 10-01-2023 ambulatory Marielos Perla Facility:[facility] Start: 07-19-2023 End: 07-19-2023 ambulatory [facility] Work Phone: Start: 07-19-2023 End: 07-19-2023 Patient encounter procedure [facility]-Radiology, [place] Work Phone: Start: 06-14-2023 End: 06-14-2023 ambulatory [facility] Work Phone: Start: 06-14-2023 End: 06-14-2023 Patient encounter procedure [facility]-Cat Scan, [facility] Work Phone: Start: 11-25-2022 End: 11-25-[address] Marielos Perla Work Phone: [facility] Work Phone: Start: 11-25-2022 End: 11-25-[address] Marielos Perla Work Phone: [facility]-Pulmonary Services/Neurology Work Phone: Start: 11-23-2022 End: 11-23-[address] Marielos Perla Work Phone: [facility] Work Phone: Start: 11-23-2022 End: 11-23-[address] Marielos Perla Work Phone: [facility] Start: 11-18-2022 End: 11-18-[address] Marielos Perla Work Phone: [facility] Work Phone: Start: 08-20-2022 End: 08-20-[address] Marielos Perla Work Phone: [facility] Work Phone: Start: 08-14-2022 End: 08-14-[address] Marielos Perla Work Phone: [facility] Work Phone: Start: 08-14-2022 End: 08-14-[address] Marielos Perla Work Phone: [facility]-Laboratory Start: 07-08-2022 End: 07-08-[address] Marielos Perla Work Phone: [facility] Work Phone: Start: 07-08-2022 End: 07-08-[address] Marielos Perla Work Phone: [facility]-Cardiovascular Services Start: 06-16-[address] Marielos Perla Work Phone: [facility]-Physical Therapy Start: 06-09-2022 End: 06-09-[address] Marielos Perla Work Phone: [facility] Start: 05-23-2022 End: 05-23-2022 ambulatory [facility] Work Phone: Start: 05-23-2022 End: 05-23-2022 Patient encounter procedure [facility] Start: 03-29-2022 End: 03-29-2022 Emergency department patient visit [facility]-Emergency Department Start: 02-25-2022 End: 02-25-2022 ambulatory [facility] Work Phone: Start: 02-25-2022 End: 02-25-2022 Patient encounter procedure [facility]-Laboratory Start: 02-22-2019 End: 03-03-2019 Evaluation and management of inpatient Mil Pettit Work Phone: [facility] Comment on above: CAD in knik artery (Primary Dx); S/P CABG x 3; Type 2 diabetes mellitus with other circulatory complication, with long-term current use of insulin (HCC) Procedures Date Procedure Procedure Detail Performing Clinician Start: 09-18-2024 X-ray of lumbosacral spine Dr. Marielos Perla DO Work Phone: Start: 07-19-2023 Plain x-ray of pelvi s and lower extremity Start: 07-19-2023 X-ray of lumbosacral spine Start: 06-14-2023 CT angiography of he ad and neck Start: 05-23-2022 MRI of joint of lowe r extremity Start: 03-29-2022 Plain X-ray of shoulder Start: 03-29-2022 Radiologic examinati on of knee Start: 03-03-2019 End: 03-03-2019 Gluc bld gluc [...] Basic metabolic pane l calcium total Oren Adams Work Phone: Start: 03-01-2019 Gluc bld gluc [...] Pettit Work Phone: Start: 03-01-2019 Potassium serum plasma/whole blood Michael Enrique Work Phone: Start: 03-01-2019 [...] mntr dev cleared fda spec home use iMl Pettit Work Phone: Start: 02-28-2019 Gluc bld [...] Taylor Work Phone: Start: 02-28-2019 Potassium serum plasma/whole blood Lukas Moise Work Phone: Start: 02-28-2019 End: 02-28-2019 Gluc [...] Phone: Start: 02-27-2019 BLOOD GAS, ARTERIAL Allan Pettit Work Phone: Start: 02-27-2019 Calcium ionized Mil Pettit Work Phone: Start: 02-27-2019 PROTIME/INR & PTT Jean-Claude Pettit Work Phone: Start: 02-27-2019 ECHOCARDIOGRAM TRANSESOPHAGEAL Ronda Carmona Work Phone: Start: 02-27-2019 Gluc bld gluc [...] stick/tabl et rgnt auto w/o microscopy Ronda Carmona Work Phone: Start: 02-26-2019 Blood typing serologic abo Ronda Mia Carmona Work Phone: Start: 02-26-2019 Prothrombin time Ronda Carmona Work Phone: Start: 02-26-2019 Gluc bld gluc mntr d ev cleared fda spec home use Mil Pettit Work Phone: Start: 02-26-2019 Gluc bld gluc mntr d ev cleared fda spec home use Mil Pettit Work Phone: Start: 02-26-2019 BASIC METABOLIC PANE L W/ REFLEX TO MG FOR LOW K Jayson Rina Metzger Work Phone: Start: 02-26-2019 Blood count complete automated Jayson Flynn Domenica Work Phone: Start: 02-25-2019 Gluc bld gluc [...] Start: 02-25-2019 Dup-scan xtr veins unilateral/limited study Minoo Encinas Work Phone: Start: 02-25-2019 Duplex scan extracra nial art compl bi study Minoo Encinas Work Phone: Start: 02-25-2019 Cul prsmptv pthgnc organism scrn w/colony estimj Jess Karlene Start: 02-25-2019 Ecg routine ecg w/le ast 12 lds w/i&r Lukas Moise Work Phone: Start: 02-25-2019 Gluc bld gluc mntr d ev cleared fda spec home use Mil Pettit Work Phone: Start: 02-25-2019 Urnls dip stick/tabl et rgnt auto w/o microscopy Lkuas Moise Work Phone: Start: 02-25-2019 Hemoglobin glycosyla akil a1c Lukas Mosie Work Phone: Start: 02-24-2019 Gluc bld gluc [...] 02-23-2019 Radiologic exam ches t single view Minoo Encinas Work Phone: Start: 02-23-2019 BEDSIDE SPIROMETRY Andr kaylee Encinas Work Phone: Start: 02-23-2019 Gluc bld gluc mntr d ev cleared fda spec home use Mil Pettit Work Phone: Start: 02-23-2019 End: 02-23-2019 Gluc bld gluc mntr dev cleared fda spec home use Mil Pettit Work Phone: Start: 02-23-2019 Blood count complete auto&auto difrntl wbc Brigido Conrad Work Phone: Start: 02-23-2019 Blood count complete automated Brigido Conrad Work Phone: Start: 02-22-2019 Gluc bld gluc mntr d ev cleared fda spec home use Mil Pettit Work Phone: Start: 02-22-2019 Gluc bld gluc mntr d ev cleared fda spec home use Mil Pettit Work Phone: Start: 02-17-2019 History of coronary artery bypass grafting History of coronary artery bypass graft x 3 Charlie Johnson TECHNICAL MARKETING CONSULTANT-C Comment on above: CABG x3 with GIRALDO to LAD, SVG to OM 2, and SVG to PDA of RCA on 02/27/[address] Taylor at [facility]; Plan of Treatment Date Care Activity Detail Author Start: 06-09-2022 Patient referral [facility] Work Phone: Start: 02-24-2020 Creatinine monitoring Creatinine mon itoring [place] Start: 02-24-2020 Potassium monitoring Potassium monit [place]ing [place] Start: 03-14-2019 End: 03-14-2019 Office Visit 03/14/2019 Office Visit Cardiothoracic Surgery Ronda Carmona, FUEL ISLAND ATTENDANT - DIGITAL ACCOUNT DIRECTOR [address] [place], [place] [id number] [facility] Start: 02-24-2019 Annual Wellness Visi t (AWV) Annual Wellness Visit (AWV) [place] Start: 12-18-2018 Influenza vaccination Flu vaccine (# 1) [place] Start: 2015 DEXA (modify frequen cy per FRAX score) DEXA (modify frequency per FRAX score) [place] Start: 2015 Pneumococcal 65+ yea rs Vaccine (1 of 1 - PPSV23) Pneumococcal 65+ years Vaccine (1 of 1 - PPSV23) [place] Start: 01-31-2000 Breast cancer screen Breast cancer s creen [place] Start: 01-31-2000 Colon cancer screen colonoscopy Colon cancer screen colonoscopy [place] Start: 01-31-2000 Shingles Vaccine (1 of 2) Shingles V accine (1 of 2) [place] Start: 01-31-1968 Diabetic microalbumi ximena test Diabetic microalbuminuria test [place] Start: 1961 DTaP/Tdap/Td vaccine (1 - Tdap) DTaP/Tdap/Td vaccine (1 - Tdap) [place] Start: 01-31-1960 [object Object] Diabetic foot exam [place] Start: 01-31-1960 A1C test (Diabetic o r Prediabetic) A1C test (Diabetic or Prediabetic) [place] Start: 01-31-1960 Diabetic retinal exam Diabetic retin al exam [place] Start: 01-31-1960 Lipid screen Lipid screen [place], [place] Start: 1950 Hepatitis C screen Hepatitis C scree n [place] Acapella Acapella Respira tory Care Routine Every 2hr while awake until discontinued starting 02/27/2019 [place] Comment on above: Every 2hr while awak e until discontinued starting 02/27/2019 Basic metabolic 2000 panel Basic Metabolic Panel Lab Routine Daily until discontinued starting 02/27/2019, 4 completed [place] Comment on above: Daily until disconti nued starting 02/27/2019, 4 completed Basic metabolic 2008 panel with ionized calcium - Serum or Plasma [facility] Blood chemistry [facility] CBC CBC Lab Routine Daily until discontinued starting 02/27/2019, 5 completed [place] Comment on above: Daily until disconti nued starting 02/27/2019, 5 completed HHN Treatment [place] Comment on above: 0800, 1200, 1600, 20 00 (respiratory use only) until discontinued starting 02/27/2019 Every 4hr until disc ontinued starting 03/02/2019 Incentive spirometry Incentive s pirometry Respiratory Care Routine Every 1hr while awake until discontinued starting 02/27/2019 [place] Comment on above: Every 1hr while awak e until discontinued starting 02/27/2019 Initiate Oxygen Ther apy Protocol Initiate Oxygen Therapy Protocol Respiratory Care Routine Daily until discontinued starting 02/27/2019 [place] Comment on above: Daily until disconti nued starting 02/27/2019 Patient Education Bruises (Contu sions) ED Abrasion [facility] Work Phone: [facility] referral [facility] Work Phone: [facility] Comment on above: 4X Daily (AC & HS) u ntil discontinued starting 03/01/2019 As Needed until disc ontinued starting 03/01/2019 End: 02-23-2019 Urinalysis Urinalysis Lab Routine One Time for 1 Occurrences starting 02/23/2019 until 02/23/2019 [place] Comment on above: One Time for 1 Occur rences starting 02/23/2019 until 02/23/2019 Urinalysis Urinalysis Lab R outine 02/23/2019 6:49 PM EST [facility] XR CHEST PORTABLE XR CHEST MIHIR BLE Imaging Routine Daily until discontinued starting 02/28/2019, 4 completed [place] Comment on above: Daily until disconti nued starting 02/28/2019, 4 completed Immunizations Immunization Date Immunization Notes Care Provider Fa hanna 01-18-2024 influenza, high dose seasonal, preservative-free Dr. Marielos Perla DO Work Phone: [facility] 07-11-2020 Covid (Pfizer) [facility] 07-09-2020 tetanus toxoid, redu deejay diphtheria toxoid, and acellular pertussis vaccine, adsorbed [facility] 06-20-2020 Covid (Pfizer) [facility] 02-01-2019 Influenza virus vaccine [facility] Payers Date Payer Category Payer Medicare [id number] 2022 Self-pay [id number] 2022 Unknown [id number] 2018 Medicare HUMANA MEDICARE HUMANA CHOICE-PPO MEDICARE xxxxxxxxx 2018-Present [address] [address] [place] [address] xxxxxxxxx [id number] Medicare [id number] Medicare MEDICARE PART A B [id number] Unknown [id number] Unknown [id number] Unknown [id number] Unknown [id number] Unknown [id number] [id number] Unknown [id number] [id number] Unknown [id number] [id number] Unknown [id number] [id number] Unknown [id number] [id number] Unknown [id number] [id number] Unknown [id number] [id number] Unknown [id number] [id number] Unknown [id number] [id number] Unknown [id number] [id number] Unknown [id number] [id number] Unknown [id number] [id number] Unknown [id number] Social History Date Type Detail Facility Start: 02-23-2019 End: 11-18-2022 Tobacco smoking status TNIS Unknown if ever smoked [facility] Sex Assigned At Not on file [place] Start: 01-15-2021 None [facility] Start: 01-15-2021 Homeless [facility] Start: 01-15-2021 Cigarettes [facility] Start: 1950 Sex Assigned At Female W [facility] Start: 03-09-2024 Tobacco smoking stat us NHIS Current Light tobacco smoker [facility] Medical Equipment Procedure Code Equipment Code Equipment Origin al Text Equipment Identifier Dates Test three times a day & as needed for symptoms of irregular blood glucose. [id number] Start: 03-03-2019 Radiology Diagnostic study note 09-18-2024 Note Date & Type Note Facility 09-18-2024 Radiology Diagnostic study note [facility] Imaging Services [address], [place] [address] L/S Spine Min 4 Views MR#: [id number] Acct: [id number] Name: CHRISTY FRANCIS Rep #: [id number] : 1950 F 74 From: Adrianna Serrano MD PCP: Dr. Marielos Perla DO Status: REG CLI Study:L/S Spine Min 4 Views Date of Exam: 09/18/24 Exam# [id number] Ordering Dr: Ra javier Mckeon NP-Sweetie PROCEDURE: L/S SPINE MIN 4 VIEWS 09/18/2024 REASON FOR EXAM: PAIN, SCIATICA TECHNIQUE: Four views of the lumbar spine COMPARISON: None FINDINGS: There are 5 [id number] lumbar-type vertebral bodies. The pars are not wellvisualized due to patient positioning. There is no definite evidence of a pars defect. Grade 1 anterolisthesis of L4 on L5. Vertebral body heights are maintained. Prominent lateral osteophyte formation at L2-3. Multilevel disc height loss with facet arthrosis which is worst at L5-S1. Dense aortic atherosclerosis. RAD/L/S Spine Min 4 Views IMPRESSION: Moderate multilevel degenerative changes of the lumbar spine, worst at L5-S1. Grade 1 anterolisthesis of L4 on L5 is likely degenerative. Reading Location: [id number] CC: TECHNICAL MARKETING CONSULTANT-C Rand Mckeon; Dr. Marielos Perla DO ~ Motor Runner: Signed [facility] Evaluation note 06-05-2024 Note Date & Type Note Facility 06-05-2024 Evaluation note Diagnosis Onset Date Resolution Essential hypertension chronic June 05, 2024 10:41am History of coronary artery bypass graft x 3 February, chronic June 05, 2024 10:41am HLD (hyperlipidemia) chronic June 05, 2024 10:41am PAD (peripheral artery disease) chronic June 05, 2024 10:41am Shortness of breath chronic Febru kristine 2024 10:41am [facility] Work Phone: Discharge summary note 02-21-2024 Note Date & Type Note Facility 02-21-2024 Note [facility] Medical Records Department [address] [place] [address] Discharge Summary 02/21/24 1153 MR#: [id number] Acct: [id number] Name: CHRISTY FRANCIS Rep #: [id number] : 1950 74 From: Kaushik Castro MD PCP: Dr. Marielos Perla, Status:ADM BRIAN [id number] Providers Date of Admission: 02/19/24 Date of Discharge: 02/21/24 Primary Care Physician: Dr. Marielos Perla DO Consultations 02/20/24 08:50 Consult: Cardiology Routine Consulting Provider: Jorge Anderson Reason for Consult: Chest Pain EMERGENT Consult: No MD Notified: Yes Date Notified: 02/20/24 Time Notified: 08:50 Method of Notification: Text Reason For Visit: CHEST PAIN Diagnosis Discharge Diagnosis (1) Chest pain: Status: Acute Code(s): R07.9 - Chest pain, unspecified Plan Patient is a 74-year-old lady with significant past cardiac history presenting with chest pain 1. Chest Pain: Patient placed on a monitored bed ME had so far been ruled out with serial cardiac enzymes. Nuclear stress test has been ordered for 02/21/2024. Patient has significant cardiac history including previous CABG and is seen by Dr. Anderson. Patient requested a consultation, consult subsequently placed ??? 02/21/2024; scheduled to undergo nuclear stress test ??? Patient nuclear stress test was negative for stress-induced ischemia discharged with plans for patient to follow-up with cardiology as outpatient 2. Coronary artery disease ??? Status post CABG x3 with GIRALDO to LAD, SVG to OM 2, and SVG to PDA of RCA on 02/27/2019. Patient is on guideline directed medical therapy did continue 3. Diabetes mellitus type II -Patient blood glucose control not optimal glucose level this a.m. 391. Patient's oral hypoglycemics held. Adjusted patient's long acting insulin, also placed Accu-Cheks a.c. and at bedtime and covered with sliding scale insulin 4. Dyslipidemia ???Patient is on statin therapy, continued at home dose 5. Peripheral arterial disease ??? With known history of occlusive disease involving the right SFA patient is on statin therapy, cilostazol as well as aspirin 6. Hypertension ??? Blood pressure controlled, home medications continued with dose adjustment as needed ??? Losartan added to patient medication regimen 7. Class I obesity with BMI of 34.8 ??? Complicating care weight loss advised 8. Gout ??? Patient is on allopurinol did continue 9. Depression ??? Patient is on duloxetine did continue 10. Chronic kidney disease stage III ??? Kidney function at baseline 11. DVT prophylaxis ??? On enoxaparin Time spent in the patient's overall evaluation,decision-making process, review of diagnostic data, adjustment of management, discussion with other providers, nursing nursing and ancillary staff involved in patient's care documentation, 36 minutes Medications at Discharge Home Medications aspirin 81 mg tablet,delayed release 81 mg PO DAILY heart [facility] 12/15/13 nitroglycerin 0.4 mg sublingual tablet 0.4 mg sublingual Q5-15M PRN chest pain #90 tabs 05/26/21 duloxetine 60 mg capsule,delayed release 60 mg PO DAILY 08/20/22 insulin aspar prot-insulin aspart 100 unit/mL (70-30) subcutaneous pen (Novolog Mix 70-30FlexPen U- 100) 60 unit subcut QAM 08/20/22 insulin aspar prt-insulin aspart 100 unit/mL (70-30) subcutaneous soln (Novolog Mix 70-30 U-100 Insuln) 65 unit subcut QPM 08/20/22 rosuvastatin 10 mg tablet See Rx Instructions .Route .COMPLEX #90 TABLETS 04/06/23 furosemide 40 mg tablet 40 mg PO DAILY #90 TABLETS 08/02/23 isosorbide mononitrate 60 mg tablet,extended release 24 hr 60 mg PO BID #180 TABLETS 09/22/23 allopurinol 300 mg tablet 300 mg PO BID 11/05/23 cilostazol 100 mg tablet 100 mg PO BID 11/05/23 metoprolol tartrate 50 mg tablet 50 mg PO BID This is a dose increase #180 tabs 12/13/23 oxycodone-acetaminophen 5 mg-325 mg tablet 1 tab PO TID PRN PRN pain 02/19/24 losartan 25 mg tablet 25 mg PO DAILY #90 tabs 02/21/24 Physical Exam Narrative GENERAL: cooperative HEENT: Atraumatic; normocephalic EYES; Anicteric, Normal Conjunctiva NECK; supple, normal thyroid, RESPIRATORY: Diminished to auscultation CARDIOVASCULAR: Regular S1 S2, GI: soft, normoactive bowel sounds, : No Renal angle tenderness; EXTREMITIES: No edema, no clubbing, MUSCULOSKELETAL: no muscle wasting NEURO: Awake; no lateralizing signs. SKIN: No Rash PSYCH; Flat affect Weight / BMI Weight Weight: 86.2 kg Body Mass Index (BMI) 34.7 ABG / Lab / Microbiology Data 02/21/24 05:20 02/21/24 05:20 Laboratory: Laboratory Results - last 24 hr 02/20/24 05:20: B-Natriuretic Peptide 20.3 02/20/24 11:25: POC Glucose 366 H 02/20/24 16:31: POC Glucose 178 H 02/20/24 22:54: POC Glucose 129 H 02/21/24 05:20: WBC 10.0, RBC 4.59, Hgb 13.8, Hct 42.2, MCV 91.9, MCH 30.1, MCHC 32.7, RDW (more content not included)... [facility] Evaluation note 02-17-2019 Note Date & Type Note Facility 02-17-2019 Evaluation note Diagnosis Onset Date Chest pain acute Essential hypertension acute History of coronary artery bypass graft x February, acute HLD (hyperlipidemia) chronic PAD (peripheral artery disease) chronic [facility] Work Phone: Evaluation note 02-17-2019 Note Date & Type Note Facility 02-17-2019 Evaluation note Diagnosis Onset Date Chest pain acute Essential hypertension acute History of coronary artery bypass graft x February, acute HLD (hyperlipidemia) chronic PAD (peripheral artery disease) chronic Essential hypertension acute History of coronary artery bypass graft x February, acute Palpitations acute HLD (hyperlipidemia) chronic PAD (peripheral artery disease) chronic [facility] Work Phone: Evaluation note 02-17-2019 Note Date & Type Note Facility 02-17-2019 Evaluation note Diagnosis Onset Date Resolution Severe left ventricular systolic dysfunction (LVSD) acute November 02 10:11am Essential hypertension chronic November 02, 2024 10:11am History of coronary artery bypass graft x February, chronic November 02, 2024 10:11am HLD (hyperlipidemia) chronic November 02, 2024 10:11am PAD (peripheral artery disease) chronic November 02, 2024 10:11am [facility] Work Phone: Evaluation note Note Date & Type Note Facility Evaluation note No assessment information availa ble [facility] Work Phone: Evaluation note Note Date & Type Note Facility Evaluation note Diagnosis Onset Date Right rotator cuff tear acut e [facility] Work Phone: Hospital Discharge instructions Note Date & Type Note Facility Hospital Discharge instructions Additional Instructions X-rays of your shoulder knee showed no broken bones. Rest, ice, and use the Percocet as needed. After that you can take Tylenol or Motrin. If symptoms are not improving in 1 week please see your primary care doctor for reevaluation. [facility] Work Phone: Reason for referral (narrative) Note Date & Type Note Facility Reason for referral (narrative) No reason for referral information available [facility] Work Phone: Discharge Instructions * Discharge Instr - Lab* Yamilet Nogueira RN - 03/02/2019 3:13 PM EST Your physician has ordered skilled home care services for you. Your home care will be provided by: [facility] [phone] * Additional Instructions* Lukas Moise, FUEL ISLAND ATTENDANT - DIGITAL ACCOUNT DIRECTOR - 03/03/2019 When to call the surgeon: If any symptoms concern you, call us: -Dr. Taylor/Dr. Medina's office -Phone number [phone] Notify us if the following occur: -Increased [...] Everywhere. * Coronary Artery Bypass Graft: Post-op ([place]) documented in this encounter History of Present [...] medications would be and if reasonable with [facility] if not then will redo med/rec for discharge to pt's home pharmacy * Lukas Moise APRN - DIGITAL ACCOUNT DIRECTOR - 03/03/2019 6:33 AM EST Cardiothoracic Surgery [...] Date 03/03/19 0000 - 03/03/19 2359 Shift [id number] 24 Hour Total INTAKE P.O. 120 120 [...] gms)/meal Problem List: Principal Problem: CAD in knik artery Active Problems: S/P CABG x 3 Hyperkalemia Diabetes mellitus (HCC) Hypertension HFrEF (heart failure with reduced ejection fraction) ([facility]) Resolved Problems: * No resolved hospital problems. [...] 03/02/2019 3:28 PM EST Physical Therapy Facility/Department: [facility] HEART [facility] LUNG Daily Treatment Note NAME: Christy Francis : 1950 Date of Service: 03/02/2019 Discharge [...] of Arthritis, Blood circulation, collateral, CAD in knik artery, Diabetes mellitus ([facility]), HFrEF (heart failure with reduced ejection fraction) ([facility]), and Hypertension. has a past surgical history [...] []Injected [x]Non-Injected / Pinnae []Normal []Other/ Dentitian []Upper [place] Teeth []Dentures Oral Mucosa []Pala [x]Moist []Dry/ Oral ETT []Present [x]Absent Neck: [...] [x]Absent/ FERGUSON ([]RUE []RLE []LUE []LLE) Neurologic: JACKSON []Yes [x]No Corneal reflexes []Present []Absent / [...] ABG: Recent Labs 02/27/19 1545 PHART 7.274* PPT4EBF 46.0* PO2ART 270.6* [id number] 98.8 CBC: Recent Labs 03/01/19 0015 03/02/19 [...] XR CHEST PORTABLE Narrative Patient Name: CHRISTY FRANCIS ---Diagnostic Radiology--- Exam Date/Time 03/01/2019 07:10:13 EST Exam CR Chest Portable Ordering Physician GRANT TAYLOR Accession Number [id number] CPT4 Codes 18437 () Reason For Exam sob Report CLINICAL INFORMATION: Shortness of breath. Status post open heart surgery. CHEST X-RAY, PORTABLE, 0537 hours: An AP portable view is compared to the prior examination of previous day. There is no change in the mediastinal or left lower hemithorax chest tubes or right internal jugular [place]-Jose introducer sheath. There is stable slightly limited [...] avoid intravascular fluid depletion Case discussed with TECHNICAL MARKETING CONSULTANT from [facility], ([place]) Critical care will sign off for now. [...] least 35 minutes so far today. * Minoo Encinas, [place] ATTENDANT - MORPHOLOGY TEACHER - 03/02/2019 4:05 AM EST Cardiothoracic Surgery [...] will hold off for now. [facility]op DONNELL pending-02/27 POD # 3 [...] with home health Planned Disposition: patient from [facility]; home when medically stable [x] Home with home health Initial Post op RBC Transfusion (Blood conservation log): none noted to date DIANA Dial CNP * Heather Zhang, OT - 03/01/2019 3:07 PM EST Occupational Therapy Occupational Therapy Initial Assessment Date: 03/01/2019 Patient Name: Christy Francis : 1950 Date of Service: 03/01/2019 Discharge [...] of Arthritis, Blood circulation, collateral, CAD in knik artery, Diabetes mellitus (HCC), HFrEF (heart failure with reduced ejection fraction) ([facility]), and Hypertension. 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 [employer] Leisure & Hobbies: making candies, breads Objective [...] precautions LUE Strength LUE Strength Comment: good credit and collections analyst strength RUE Strength RUE Strength Comment: good credit and collections analyst strength Plan Plan Times per week: 3-5 times per week Plan weeks: 2 weeks Current Treatment Recommendations: Strengthening, Endurance Training, Patient/Caregiver Education & Training, Self-Care / ADL, Equipment Evaluation, Education, & procurement, Balance Training, Functional Mobility Training, Safety Education & Training Plan Comment: Pt follows sternal precautions without reminders. AM-PAC Score AM-PAC Inpatient Daily Activity Raw Score: 21 (03/01/19 1445) AM-PAC Inpatient ADL T-Scale Score : 44.27 (03/01/19 1445) ADL Inpatient CMS 0-100% Score: 32.79 (03/01/19 1445) ADL Inpatient [facility] G-Code Modifier : CJ (03/01/191444) Goals Short [...] Plan of Care supervision is transferred to [facility] Occupational Therapist. Goals and/or treatment plan was established in collaboration with patient/family/other representatives. Heather Zhang OTR/L * Jos Baker, AUTO DISMANTLER - 03/01/2019 1:48 PM EST Physical Therapy Facility/Department: [facility] Daily Treatment Note NAME: Christy Francis : 1950 Date of Service: 03/01/2019 Discharge [...] of Arthritis, Blood circulation, collateral, CAD in knik artery, Diabetes mellitus (HCC), HFrEF (heart failure with reduced ejection fraction) ([facility]), and Hypertension. has a past surgical history [...] on own throughout day. G-Code OutComes Score AM-PAC Score AM-PAC Inpatient Mobility Raw Score : 15 (03/01/191346) AM-PAC Inpatient T-Scale Score : 39.45 (03/01/191346) Mobility Inpatient CMS 0-100% Score: 57.7 (03/01/191346) Mobility Inpatient CMS G-Code Modifier : CK (11/13/19 1347) Goals Short term goals Time Frame for [...] Conrad MD - 03/01/2019 10:53 AM EST [facility] [address] [place] [address] Dept: [phone] Loc: [phone] Visit Date: 03/01/2019 HPI: Christy Francis is a 69 y.o. female who presents today for: No chief complaint on file. HPI: Chief complaint: cp reason for consult: dm Poor appetite No sob No chest pain Soreness post surgery No nausea No abd pain Took metformin at home but does know how to give insulin injections via pen Past Medical History: Diagnosis Date Arthritis Blood circulation, collateral CAD in knik artery 02/22/2019 Diabetes mellitus (HCC) HFrEF (heart failure with reduced ejection fraction) (HCC) Hypertension Past Surgical History: Procedure Laterality Date CHOLECYSTECTOMY JOINT REPLACEMENT Current Facility-Administered Medications Medication Dose Route Frequency Provider Last Rate Last Dose heparin (porcine) injection 5,000 Units 5,000 Units Subcutaneous BID DIANA Dial MORPHOLOGY TEACHER 5,000 Units at 03/01/19 0856 metoprolol tartrate (LOPRESSOR) tablet 25 mg 25 mg Oral BID DIANA Moore DIGITAL ACCOUNT DIRECTOR 25 mg at 856 pantoprazole (PROTONIX) tablet 40 mg 40 mg Oral QAM AC Lukas DIANA Moise DIGITAL ACCOUNT DIRECTOR 40 mg at 03/01/19 0709 FLUoxetine (PROZAC) capsule 20 mg 20 mg Oral Daily Lukas MoiseDIANA DIGITAL ACCOUNT DIRECTOR 20 mg at 03/01/19 0856 0.45 % [...] Nightly Grant Taylor MD 80 mg at 02/28/192017 aspirin EC tablet 81 mg 81 mg [...] Subcutaneous PRN Grant Taylor MD4 Units at 02/28/19 2117 propylene glycol-glycerin (artificial tears) 1-0.3 % ophthalmic [...] or rales. Diagnostic Workup: Results for CHRISTY FRANCIS ( ) as of 03/01/2019 10:54 Ref. Range 03/01/2019 06:02 03/01/2019 07:12 03/01/2019 07:38 03/01/2019 09:05 03/01/2019 10:01 POC Glucose Latest Ref Range: 70 - 100 mg/dL 165 (H) 153 (H) 149 (H) 111 (H) 95 Results for CHRISTY FRANCIS ( ) as of 03/01/2019 10:54 Ref. Range 03/01/2019 00:15 Creatinine Latest Ref Range: 0.52 - 1.25 mg/dL 1.63 (H) Results for CHRISTY FRANCIS ( ) as of 03/01/2019 10:54 Ref. 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 Chantell Conrad MD * Minoo Encinas APRN - CNP - 03/01/2019 9:51 AM EST Cardiothoracic Surgery Interval Note 03/01/2019 9:51 AM Intervention Significant Event Patient:Christy Francis/1950,(69 y.o.), female Vitals: Pulse: 97 Pulse: [89-98] [...] at 02/28/19 0730 insulin 5.5 Units/hr (03/01/19 07) dextrose is on metformin alone at home [...] []Injected [x]Non-Injected / Pinnae []Normal []Other/ Dentitian []Upper [place] Teeth []Dentures Oral Mucosa []Pala [x]Moist []Dry/ Oral ETT []Present [x]Absent Neck: [...] [x]Absent/ FERGUSON ([]RUE []RLE []LUE []LLE) Neurologic: JACKSON []Yes [x]No Corneal reflexes []Present []Absent / [...] ABG: Recent Labs 02/27/19 1545 PHART 7.274* ICC6NHH 46.0* PO2ART 270.6* C3IAYLRD 98.8 CBC: Recent Labs 02/28/19 0404 03/01/19 [...] XR CHEST PORTABLE Narrative Patient Name: CHRISTY FRANCIS ---Diagnostic Radiology--- Exam Date/Time 03/01/2019 07:10:13 EST Exam CR Chest Portable Ordering Physician GRANT TAYLOR Accession Number [id number] CPT4 Codes 73769 () Reason For Exam sob Report CLINICAL INFORMATION: Shortness of breath. Status post open heart surgery. CHEST X-RAY, PORTABLE, 0537 hours: An AP portable view is compared to the prior examination of previous day. There is no change in the mediastinal or left lower hemithorax chest tubes or right internal jugular Wetmore-Jose introducer sheath. There is stable slightly limited [...] least 35 minutes so far today. * Minoo Encinas, [place] ATTENDANT - MORPHOLOGY TEACHER - 03/01/2019 4:54 AM EST Cardiothoracic Surgery [...] Date 03/01/19 0000 - 03/01/19 2359 Shift 9127-6423 5300-0380 3457-9224 24 Hour Total INTAKE Shift Total(mL/kg) OUTPUT [...] this morning may increase BB. [facility]; intraop DONNELL pending-02/27 POD # 2 [...] with home health Planned Disposition: patient from [facility]; home when medically stable [x] Home with home health Initial Post op RBC Transfusion (Blood conservation log): none noted to date DIANA Dial CNP * Padma Webster APRN - CNP - 02/28/2019 2:12 PM EST INTERVENTIONAL CARDIOLOGY PROGRESS NOTE Chart and interval events reviewed. Reason for Visit CAD s/p CABG SUBJECTIVE: Christy Francis states her midsternal CP is improving. States [...] mg Oral Daily Active Problems: CAD in knik artery Diabetes mellitus (HCC) Hypertension HFrEF (heart failure with reduced ejection fraction) ([facility]) Resolved Problems: * No resolved hospital problems. [...] SR-ST 90-120s DONNELL: In process Last Echo: [facility] LVEF 45%. Mild MAC with mild MR Last stress test: [facility] NST Stress Induced Ischemia involving portions [...] left. 8. Dispo - Pt lives in [place] and states she intends to follow up [...] up weekly Nutrition Assessment: Pt presents from [place] for evaluation for PCI vs CABG after presenting to [place] ED with chest pressure and having abnormal [...] High Nutrient Needs: Estimated Daily Total Kcal: 4561-1640 Estimated Daily Protein (g): 48-57 Estimated Daily [...] Asaf=19. Chest tubex3. Labs noted: ^BUN-25, ^potassium-7.0-->6.7, mhtzrhl-[id number], HgA1C on 02/25-10.3% Wound Type: Surgical Wound [...] confirm weight change, will continue to monitor [place] Body Wt: 105 lb (47.6 kg), % [place] Body 168% BMI Classification: BMI 30.0 - [...] 02/28/2019 12:03 PM EST Physical Therapy Facility/Department: [facility] HE[facility]UNG Initial Assessment NAME: Christy Francis : 1950 Date of Service: 02/28/2019 Discharge Recommendations: Home independently Assessment Body structures, Functions, Activity limitations: Decreased strength;Decreased endurance;Decreased functional mobility ;Decreased safe awareness;Decreased balance Assessment: Pt admitted for Pod#1 CABG x 3. Pt AUTO DISMANTLER was living alone independently. Pt this date [...] of Arthritis, Blood circulation, collateral, CAD in knik artery, Diabetes mellitus (HCC), HFrEF (heart failure with reduced ejection fraction) ([facility]), and Hypertension. 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 Goals and/or treatment plan was established in collaboration with patient/family/other (specify). Mil Reddy, PT * Liz Diaz, [place] ATTENDANT - MORPHOLOGY TEACHER - 02/28/2019 11:20 AM EST ENDOCRINOLOGY PROGRESS NOTE Patient: Christy Francis Unit/Bed:[id number] Date of : 1950 Admit date: 02/22/2019 [...] Assessment: Type 2 DM with hyperglycemia with mcc insulin use Lab Results Component Value Date LABA1C 10.3 (H) 02/25/2019 Multivessel CAD with Angina - [facility] on 02/22 concerning for multivessel disease - S/p CABG yesterday Plan: As outpatient prior to this admission: Provider Relations Manager: None Diabetes Medications/regimen: Metformin 500 mg daily [...] subcutaneous insulin when rate lower * Chantell Álvarez MD - 02/28/2019 11:11 AM EST ICU [...] []Injected [x]Non-Injected Pinnae [x]Normal []Other Oral Mucosa [x]Pala [x]Moist []Dry Oral ETT []Present [x]Absent Neck: [...] [x]Absent FERGUSON ([x]RUE [x]RLE [x]LUE [x]LLE) Neurologic: JACKSON []Yes [x]No Corneal reflexes []Present []Absent Plantar [...] prophylaxis Patient Active Problem List: CAD in knik artery Diabetes mellitus ([facility]) Hypertension HFrEF (heart failure with reduced ejection fraction) ([facility]) CHANTELL ÁLVAREZ MD * Lukas Moise APRN - CNS - 02/28/2019 9:15 AM EST Cardiothoracic Interval Progress Note 1. Repeat K+ level 6.7. 2. D/w Dr. Álvarez will add albuterol aerosol for hyperkalemia protocol 3. Lasix 40 mg IVP x1 4. Repeat BMP at noon today Lukas Chandler APRN - CNS - 02/28/2019 6:15 AM [...] 98% BMI 33.25 kg/m I/O: Date 02/28/19 0000 - 02/28/19 2359 Shift 0049-3890 4866-3877 7134-8589 24 Hour Total INTAKE I.V.(mL/kg/hr) 2220(3.5) 2220 [...] 20 mL/hr at 02/28/19 0730 propofol Stopped (02/27/191813) phenylephrine (AL-SYNEPHRINE) 50mg/250mL infusion nitroprusside (NIPRIDE) 50 [...] LIQUID; Problem List: Active Problems: CAD in knik artery Diabetes mellitus (HCC) Hypertension HFrEF (heart failure with reduced ejection fraction) ([facility]) Resolved Problems: * No resolved hospital problems. [...] PPI/SCD/Teds 12. Disposition: Continue progressive care in U Blood Conservation Initiative Log: - none to date * Alma Lepe RCP - 02/27/2019 10:06 PM EST The patient is now extubated and on a 4L nasal cannula and breathing well. * Alma Lepe RCP - 02/27/2019 9:44 PM EST Patient stayed on SBT for 55 minutes with weaning parameters done before placing her back on previous settings. Pt with a VC of 856/ NIF of -21/ VT of 509/ MV of 8.7/ RR 20/ RSBI 77. * Steven Vidal MD - 02/27/2019 10:49 AM EST Hospitalist Progress Note 02/27/2019 10:49 AM [phone]: Please page me for patient care issues. [phone]: Please page [facility] Hospitalist for any issues. 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 Lab Results Component Value Date LABA1C 10.3 (H) 02/25/2019 Multivessel CAD with Angina - [facility] on 02/22 concerning for multivessel disease - Planning for possible CABG on Wednesday Plan: As outpatient prior to this admission: Provider Relations Manager: None Diabetes Medications/regimen: Metformin 500 mg daily [...] in 2-4 weeks after discharge * Ronda Carmona, [place] ATTENDANT - DIGITAL ACCOUNT DIRECTOR - 02/26/2019 11:23 AM EST Cardiothoracic Surgery Progress Note 02/26/2019 Subjective: Admit Date: 02/22/2019 Interval History: Transferred from [place](see consult note) Multivessel CAD plan for CABG [...] Date 02/26/19 0000 - 02/26/19 2359 Shift 4390-4951 3144-9674 5287-6283 24 Hour Total INTAKE P.O. 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 * Assessment and Plan: 1. Multivessel CAD: Plan for CABG surgery this Wednesday02/27/[address] Taylor. HoldingASA and BB after today's dose 2. HxHypertension: SBP 120-140's. Controlled. metoprolol 25 mg BID. ROSY D/c'd today 3. DM: off home metformin. [...] 1 tablet, 1 tablet,Oral, Q12H PRN, Ronda Carmona, [place] ATTENDANT - DIGITAL ACCOUNT DIRECTOR, 1 tablet at 02/25/19 1613 insulin glargine (LANTUS) injection vial 25 Units, 25 Units, Subcutaneous, Nightly, Sixto Salamanca MD, 25 Units at 02/25/19 2120 insulin lispro (HUMALOG) injection vial 10 Units, 10 Units, Subcutaneous, TID , Sixto Salamanca MD, 10 Units at 02/26/19 0721 insulin lispro (HUMALOG) injection vial 0-12 Units, 0-12 Units, Subcutaneous, TID , Mil Pettit MD, 8 Units at 02/26/19 0722 atorvastatin (LIPITOR) tablet 80 mg, 80 mg, Oral, Nightly, Timmy Basilio MD, 80 mg at 02/25/19 2119 sodium chloride flush 0.9 % injection 10 [...] 40 mg, Subcutaneous, Daily, Brigido Conrad MD, Stopped at 02/26/19 0730 aspirin chewable tablet 81 mg, 81 mg, Oral, Daily, Brigido Conrad MD, 81 mg at 02/26/19 08 escitalopram (LEXAPRO) tablet 10 mg, 10 mg, Oral, Daily, Brigido Conrad MD, 10 mg at 02/26/19 08 metoprolol tartrate (LOPRESSOR) tablet 25 mg, 25 mg, Oral, BID, Brigido Conrad MD, 25 mg at 02/26/19 08 [Held by provider] lisinopril (PRINIVIL;ZESTRIL) tablet 10 [...] PM EST ENDOCRINOLOGY PROGRESS NOTE Patient: Christy Francis Unit/Bed:1522/1522A Date of : 1950 Admit date: [...] Assessment: 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 Lab Results Component Value Date LABA1C 10.3 (H) 02/25/2019 Multivessel CAD with Angina - [facility] on 02/22 concerning for multivessel disease - Planning for possible CABG on Wednesday Plan: As outpatient prior to this admission: Provider Relations Manager: None Diabetes Medications/regimen: Metformin 500 mg daily [...] in 2-4 weeks after discharge * Ronda Carmona, [place] ATTENDANT - DIGITAL ACCOUNT DIRECTOR - 02/25/2019 10:52 AM EST Cardiothoracic Surgery Progress Note 02/25/2019 Subjective: Admit Date: 02/22/2019 Interval History: Transferred from [place](see consult note) Multivessel CAD plan for CABG [...] 94% BMI 33.27 kg/m I/O: Date 02/25/19 0000 - 02/25/19 2359 Shift 2083-0622 8849-9142 7387-5070 24 Hour Total INTAKE P.O. 200 300 [...] GLUCOSE 288* . 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 * Assessment and Plan: 1. Multivessel CAD: Plan for CABG surgery this Wednesday02/27/[address] at [address] Taylor. Continue ASA, BB, Statin 2. HxHypertension: SBP 120-140's. Controlled. On lisinopril 10 mg daily, metoprolol 25 mg BID. ROSY will need d/c'd on Wednesday. 3. DM: [...] vial 6 Units, 0.08 Units/kg, Subcutaneous, TID WC, Mil Pettit MD, 6 Units at 02/24/19 1746 insulin glargine (LANTUS) injection vial 16 Units, 16 Units, Subcutaneous, Nightly, Shreyas Shaw DO, 16 Units at 02/24/19 2213 insulin lispro (HUMALOG) injection vial 0-12 Units, 0-12 Units, Subcutaneous, TID WC, Mil Pettit MD, 6 Units at 02/24/19 174 atorvastatin (LIPITOR) tablet 80 mg, 80 mg, Oral, Nightly, Timmy Basilio MD, 80 mg at 02/24/191958 sodium chloride flush 0.9 % injection 10 mL, 10 mL, Intravenous, 2 times per day, Brigido Conrad MD, 10 mL at 02/25/19 08 sodium chloride flush 0.9 % injection 10 [...] Metzger MD * Lukas Moise APRN - DIGITAL ACCOUNT DIRECTOR - 02/24/2019 2:54 PM EST Cardiothoracic Surgery Progress Note 02/24/2019 Subjective: Admit Date: 02/22/2019 Interval History: Transferred from [place](see consult note) Multivessel CAD plan for CABG [...] 94% BMI 33.35 kg/m I/O: Date 02/24/19 0000 - 02/24/19 2359 Shift 0670-8555 5065-1238 5443-3978 24 Hour Total INTAKE P.O. 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 * Assessment and Plan: 1. Multivessel CAD: Plan for CABG surgery this Wednesday02/27/[address] Taylor. Continue ASA, BB, Statin 2. Reviewed heart surgery education with patient 3. HxHypertension: SBP 120-130's. Controlled. On lisinopril 10 mg daily, metoprolol 25 mg BID. ROSY will need d/c'd on Wednesday. 4. DM: [...] Date 02/24/19 0000 - 02/24/19 2359 Shift 7658-9522 6363-3169 8860-2293 24 Hour Total INTAKE P.O.(mL/kg/hr) 400(0.6) 400 [...] neurologic deficits. 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 [...] be monitored and followed by the diet helicopter technician. Keren Banks DT * Mil Pettit MD - 02/23/2019 9:52 AM EST Hospitalist Progress Note 02/23/2019 9:52 AM Subjective: Admit Date: 02/22/2019 PCP: LIANET PETERS Interval History: pt feels ok Some sore throat No overnight issues. Deniesabdominal pain, nausea, vomiting, diarrhea, constipation, fevers, or chills. DIET CARB CONTROL; Date 02/23/19 0000 - 02/23/19 2359 Shift 9563-7969 6223-7746 8053-3343 24 Hour Total INTAKE Shift Total(mL/kg) OUTPUT [...] neurologic deficits. 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 * Await CTS and cards review of images, surgical planning Increase insulin Supportive care otherwise See orders, continue POC Advance Directive: Full Code Suzan Trevino Hospitalist documented in this encounter Assessments Diagnosis CAD in knik artery- Primary Coronary atherosclerosis of knik coronary artery S/P CABG x 3 Postsurgical aortocoronary bypass status Type 2 diabetes mellitus with other circulatory complication, with long-term current use of insulin (HCC) Diabetes mellitus (HCC) Type II or unspecified type diabetes mellitus without mention of complication, not stated as uncontrolled Hypertension Unspecified essential hypertension HFrEF (heart failure with reduced ejection fraction) (HCC) Hyperkalemia Hyperpotassemia Advance Directives Documents on File Type Date Recorded 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 Advance Directives and Living Will Power of Body Trimmer Upholsterer Latest Code Status on File Code Status Date Activated Date Inactivated Comments Full Code 02/27/2019 4:35 PM Full Code 02/22/2019 3:10 PM 02/27/2019 4:35 PM Advance Directive Response Recorded Date/ Time Advance Directives Yes May 8:25am Living Will Yes June 03 8:25am Power of Body Trimmer Upholsterer Yes June 03, 2021 8:25am Advance Directive Response Recorded Date/ Time Advance Directives Yes May 8:25am Living Will No March 29 5:45pm Power of Body Trimmer Upholsterer No March 29, 2022 5:45pm Advance Directive Response Recorded Date/ Time Advance Directives Yes May 9:25am Living Will No March 29 6:45pm Power of Body Trimmer Upholsterer No March 29, 2022 6:45pm Advance Directive Response Recorded Date/ Time Advance Directives Yes May 9:25am Advance Directive Response Recorded Date/ Time Living Will No October 01, 2023 2:53pm Do you have a Healthcare Power of Body Trimmer Upholsterer? No October 01, 2023 2:53pm Advance Directives Yes May 9:25am Summary Purpose Family History Relationship Condition Age at Onset Recorded Date/T desiree mother Cardiac disease Unknown Chief Complaint and Reason for Visit Chief Complaint E ORDERS Chief Complaint E ORDERS FALL Chief Complaint E ORDERS FALL RIGHT SHOULDER TEAR Chief Complaint FALL RIGHT SHOULDER TEAR RIGHT SHOULDER RT SHOULDER. RX HERE Peripheral vascular disease, unspecified Reason for Visit Right rotator cuff t ear Chief Complaint RIGHT SHOULDER TEAR RIGHT SHOULDER RT SHOULDER. RX HERE Peripheral vascular disease, unspecified E ORDER Reason for Visit Right rotator cuff t ear Chief Complaint E ORDER CHF: see clinical note 08/14/22 L.L. Reason for Visit Chest pain Essential hypertension History of coronary artery bypass graft x 3 HLD (hyperlipidemia) PAD (peripheral artery disease) Chief Complaint E ORDER CHF: see clinical note 08/14/22 L.L. 1 Y FU PALP Reason for Visit Chest pain Essential hypertension History of coronary artery bypass graft x 3 HLD (hyperlipidemia) PAD (peripheral artery disease) Essential hypertension History of coronary artery bypass graft x 3 Palpitations HLD (hyperlipidemia) PAD (peripheral artery disease) Chief Complaint HEADACHES Chief Complaint Admit Date 3 M FU June 05, 2024 10:41am BACK PAIN September 18, 2024 12:30 pm Reason for Visit Admit Date Essential hypertension June 05 10:41am History of coronary artery bypass graft x 3 June 05, 2024 10:41am HLD (hyperlipidemia) June 05, 2024 10:41am PAD (peripheral artery disease) June 05, 2024 10:41am Shortness of breath June 05, 2024 10:41am Chief Complaint Admit Date BACK PAIN September 18, 2024 12:30 pm 1 Y FU November 02, 2024 10:1 1am Reason for Visit Admit Date Severe left ventricular systolic dysfunc tion (LVSD) November 02, 2024 10:11am Essential hypertension November 02, 2024 1 0:11am History of coronary artery bypass graft x 3 November 02, 2024 10:11am HLD (hyperlipidemia) November 02, 2024 10: 11am PAD (peripheral artery disease) October 10:11am Additional Source Comments INFORMATION SOURCE (unrecogn ized section and content) DATE CREATED AUTHOR 05/04/2019 [facility] DATE CREATED AUTHOR AUTHOR'S KADY ATION 09/24/2024 [facility] Goals (unrecognized section and content) Goals may be documented in a n alternate sectionGoals may be documented in an alternate sectionGoals may be documented in an alternate sectionGoals may be documented in an alternate sectionGoals may be documented in an alternate sectionGoals may be documented in an alternate sectionGoals may be documented in an alternate sectionGoals may be documented in an alternate sectionGoals may be documented in an alternate sectionGoals may be documented in an alternate sectionGoals may be documented in an alternate sectionGoals may be documented in an alternate section Care Teams (unrecognized sec tion and content) Team Status: Active Member Role Status Dates Dr. Lianet Peters MD Family Provider Active Dr. Marielos Perla DO Primary Care Provider Active Team Status: Inactive Member Role Status Dates Dr. Marielos Perla DO Primary Care Provider Active Charlie Johnson TECHNICAL MARKETING CONSULTANT, TECHNICAL MARKETING CONSULTANT-C Attending Provider, Referring Pro vider Active Team Status: Inactive Member Role Status Dates Dr. Marielos Perla DO Primary Care Provider Active Dr. Keith Varner MD Attending Provider, Emergency Provider Active Team Status: Inactive Member Role Status Dates Dr. Marielos Perla DO Primary Care Provide r, Attending Provider, Referring Provider Active Team Status: Inactive Member Role Status Dates Dr. Marielos Perla DO Primary Care Provider, Referring P rovider Active Bruce Dubon MD Attending Provider Active Team Status: Active Member Role Status Dates Dr. Marielos Perla DO Primary Care Provider Active Bruce Dubon MD Attending Provider, Referring Prov ider Active Team Status: Inactive Member Role Status Dates Dr. Marielos Perla DO Primary Care Provider Active Dr. Moose Singh MD Attending Provider Active Team Status: Inactive Member Role Status Dates Dr. Marielos Perla DO Primary Care Provider, Referring P rovider Active Kaley Son TECHNICAL MARKETING CONSULTANT, TECHNICAL MARKETING CONSULTANT-C Attending Provider Active Team Status: Inactive Member Role Status Dates Dr. Marielos Perla DO Primary Care Provider, Referring P rovider Active Jennifer Bailey PA, PA Attending Provider Active Team Status: Active Member Role Status Dates Dr. Marielos Perla DO Primary Care Provider Active Jennifer Bailey PA, PA Attending Provider, Referr ing Provider Active Team Status: Inactive Member Role Status Dates Dr. Marielos Perla DO Primary Care Provider Active Jennifer Bailey PA, PA Attending Provider, Referr ing Provider Active Team Status: Inactive Member Role Status Dates Dr. Marielos Perla DO Primary Care Provider Active Rand Mckeon NP-C Attending Provider, Referring Prov ider Active Team Status: Inactive Member Role Status Dates Dr. Marielos Perla DO Primary Care Provider Active Start: June 05, 2024 End: June 05, 2024 Dr. Marielos Perla DO Referring Provider Active St art: June 05, 2024 End: June 05, 2024 Charlie Johnson NP, TECHNICAL MARKETING CONSULTANT-C Attending Provider Active S tart: June 05, 2024 End: June 05, 2024 Team Status: Inactive Member Role Status Dates Dr. Marielos Perla DO Primary Care Provider Active Start: September 18, 2024 End: September 18, 2024 Rand Mckeon TECHNICAL MARKETING CONSULTANT-C Attending Provider Active St art: September 18, 2024 End: September 18, 2024 Rand Mckeon TECHNICAL MARKETING CONSULTANT-C Referring Provider Active St art: September 18, 2024 End: September 18, 2024 Team Status: Active Member Role/Relationship Status Dates Dr. Marielos Perla DO Primary Care Provider Active Team Status: Inactive Member Role/Relationship Status Dates Dr. Marielos Prela DO Primary Care Provider Active Start: September 18, 2024 End: September 18, 2024 Rand Mckeon TECHNICAL MARKETING CONSULTANT-C Attending Provider Active St art: September 18, 2024 End: September 18, 2024 Rand Mckeon TECHNICAL MARKETING CONSULTANT-C Referring Provider Active St art: September 18, 2024 End: September 18, 2024 Team Status: Inactive Member Role/Relationship Status Dates Dr. Marielos Perla DO Primary Care Provider Active Start: November 02, 2024 End: November 02, 2024 Dr. Marielos Perla DO Referring Provider Active St art: November 02, 2024 End: November 02, 2024 Jennifer HOLLAND, PA Attending Provider Active Start: November 02, 2024 End: November 02, 2024 FOR RECORDS PERTAINING TO PATIENTS WHO ARE [...] BE BASED ON THE PRIMARY CLINICAL RECORDS. [facility] [employer] provides no warranty or guarantee of the accuracy or completeness of information in this document.
== END | disposition home or self-care (01) ==
PROVIDERS: PCP Family Medicine; Referring Provider Physician Assistant Medical; Visit Provider Physician Assistant Medical
DX: I51.89 Other ill-defined heart diseases (principal); Z95.1 Presence of aortocoronary bypass graft
CPT/HCPCS: 36415; 80048

== ENCOUNTER → 2024-11-29 | Outpatient (CLI) | payer MEDICARE, SELFPAY ==
[2019-11-14 08:38] VITALS: BMI 31.6
--- NOTE | 2024-11-29 08:41 | US_ITS ---
PROCEDURE: PELVIC W/ TRANSVAGINAL REASON FOR EXAM: PAIN RLQ TECHNIQUE: PELVIC W/ TRANSVAGINAL COMPARISON: None FINDINGS: Measurements: Uterus: 8.1 cm x 5.2 cm x 3.6 cm with a volume of 77.26 mL Endometrial Thickness: 6.6 mm. This is thickened for the patient's postmenopausal state. Right Ovary: Nonvisualized. Left Ovary: Nonvisualized. TRANSABDOMINAL: Uterus: There is a 1.4 cm 1.6 cm 1.6 cm fundal fibroid. Endometrium: Endometrium is thickened measuring 6.6 mm for the patient's postmenopausal phase. Clinical correlation recommended. Right ovary: Not visualized. Left ovary: Not visualized. Other: No large pelvic mass identified. Transvaginal sonography was performed to better visualize the endometrium. TRANSVAGINAL: Uterus: Anteverted. 1.4 cm x 1.6 cm 1.6 cm fundal fibroid. Endometrium: Endometrium is thickened measuring 6.6 mm. Further evaluation recommended. Right ovary: Not visualized. Left ovary: Not visualized. Other adnexal findings: Cul-de-sac: No free intraperitoneal fluid identified. Tenderness: No tenderness US/Pelvic w/ Transvaginal IMPRESSION: Endometrial thickening. Clinical correlation recommended. Reading Location: [facility]
== END | disposition home or self-care (01) ==
PROVIDERS: PCP Family Medicine; Referring Provider Family Medicine; Visit Provider Family Medicine
DX: R10.2 Pelvic and perineal pain (principal); R10.31 Right lower quadrant pain
CPT/HCPCS: 76830; 76856

== ENCOUNTER → 2024-12-06 | Outpatient (CLI) | payer MEDICARE, SELFPAY ==
[2019-11-14 08:38] VITALS: BMI 31.6
[2024-12-06 11:05] LABS: Anion Gap 14 (5-15); BUN 32 mg/dL (4-19); BUN/Creat Ratio 22.5 RATIO (10-20); Calcium,Total 9.5 mg/dL (7.6-11.0); Carbon Dioxide 26.5 mmol/L (21.0-32.0); Chloride 98 mmol/L (98-108); Glucose 169 mg/dL (70-99); Potassium 4.2 mmol/L (3.3-5.1)
== END | disposition home or self-care (01) ==
LOC: MTLAB 09:06
PROVIDERS: PCP Family Medicine; Referring Provider Physician Assistant Medical; Visit Provider Physician Assistant Medical
DX: I51.89 Other ill-defined heart diseases (principal)
CPT/HCPCS: 36415; 80048

== ENCOUNTER → 2024-12-22 | Outpatient (CLI) | payer MEDICARE, SELFPAY ==
[2019-11-14 08:38] VITALS: BMI 31.6
--- NOTE | 2024-12-22 09:30 | RAD_ITS ---
EXAM: XR Lumbosacral Spine, 2 or 3 Views CLINICAL INDICATION: LLE WEAKNESS, NEUROPATHY TECHNIQUE: Frontal and lateral views of the lumbar spine and sacrum. COMPARISON: No relevant prior studies available. FINDINGS: VERTEBRAE: Degenerative facet arthropathy throughout the lumbar spine, most prominent in the lower lumbar spine. Normal alignment. No acute fracture. SACRUM/COCCYX: Unremarkable as visualized. No acute fracture. DISC SPACES: Degenerative disc disease throughout the lumbar spine. SOFT TISSUES: Unremarkable. VASCULATURE: Scattered calcified atherosclerotic disease of aorta. RAD/Lumbar Spine 2 or 3 Views IMPRESSION: 1. No acute fracture. 2. If symptoms persist, further evaluation with MRI is recommended. 3. Degenerative changes lumbar spine as described. Reading Location: [id number]
--- NOTE | 2024-12-22 09:30 | ART_ITS ---
Reason For Study Reason For Study: Claudication Procedure A bilateral lower extremity continuous wave Doppler with analog waveform analysis,segmental pressures,and ankle brachial indexes with exercise. Left Segmental Pressures Left brachial= 138mmHg. Left high thigh = 144mmHg. Left low thigh = 134mmHg. Left calf = 84mmHg. Left posterior tibial artery = 85mmHg. Left dorsalis pedis artery = 82mmHg. Left digit = 52 mmHg. Right Segmental Pressures Right brachial= 136mmHg. Right high thigh = 181mmHg. Right low thigh = 187mmHg. Right calf = 181mmHg. Right posterior tibial artery = 99mmHg. Right dorsalis pedis artery = 106mmHg. Right digit = 55 mmHg. Indices The right ankle brachial index by the posterior tibial artery is 0.72. The right ankle brachial index by the dorsalis pedis is 0.77. The right digital-brachial index is 0.40. The right post exercise ankle brachial index is 0.64. The left ankle brachial index by the posterior tibial artery is 0.62. The left ankle brachial index by the dorsalis pedis is 0.59. The left digital-brachial index is 0.38. The left post exercise ankle brachial index is 0.30. VL/Lower Ext Art Exam w/ Exercise Interpretation Summary Right ISIDRO 0.77, moderate arterial insufficiency. Doppler/PVR waveforms and segm ental pressures reveal infrapoplital disease. Right lower extremity exhibits no change response to exercise Left ISIDRO 0.62, moderate arterial insufficiency. Doppler/PVR waveforms and segme ntal pressures reveal distal SFA/popliteal disease. Left lower extremity with abnormal response to exercise and post exercise ISIDRO i n the severe category. Ordering Physician: Ava Young Referring Physician: Marielos Perla Performed By: Rand Johnson RDCS/RVT
== END | disposition home or self-care (01) ==
LOC: CVS 09:27
PROVIDERS: PCP Family Medicine; Referring Provider Physician Assistant; Visit Provider Physician Assistant
DX: I73.9 Peripheral vascular disease, unspecified (principal); G62.9 Polyneuropathy, unspecified; R29.898 Other symptoms and signs involving the musculoskeletal system
CPT/HCPCS: 72100; 93924

== ENCOUNTER 2025-01-07 12:22 | Observation (INO) | payer MEDICARE, SELFPAY ==
[2019-11-14 08:38] VITALS: BMI 31.6
[2025-01-07] VITALS (9 sets, daily range): BP systolic 103–129; BP diastolic 55–98; PULSE 87–106; RESP 16–24; TEMP 36.3–36.9; O2SAT 93–98; BMI 30.6; BMI 30.2
--- NOTE | 2025-01-07 12:40 | RAD_ITS ---
PROCEDURE: CHEST PA AND LATERAL 01/07/2025 REASON FOR EXAM: CHEST PAIN TECHNIQUE: Procedure Code: RADCXR Modality: DX Procedure: CHEST PA AND LATERAL COMPARISON: 02/19/2024 FINDINGS: LUNGS AND PLEURA: The lungs are clear. No pleural effusion or pneumothorax. HEART AND MEDIASTINUM: The cardiac silhouette is mildly enlarged. The mediastinal contour is normal. Evidence of prior CABG with sternal wires in place. AORTA: Calcified thoracic aorta. BONES: No acute osseous abnormality. RAD/Chest PA and Lateral IMPRESSION: NO ACUTE FINDINGS. Reading Location: [id number]
--- NOTE | 2025-01-07 12:41 | ED.VIS.CHEST ---
HPI History of Present Illness Chief Complaint: Chest Pain Narrative Narrative: Patient is a 74-year-old female presenting to the emergency department for chest pain that started around 9 AM this morning. Patient has a past medical history of a CABG in 2019 at [facility], palpitations, hypertension, hyperlipidemia, type 2 diabetes and peripheral artery disease. Patient states that she has been having indigestion for the past few weeks. States that today at 9 AM she developed left-sided chest pressure and a sharp pain in her left shoulder blade. She states the pain goes down her left arm. She endorses some mild shortness of breath and nausea associated with it. Denies any diaphoresis. Denies any fever, chills, cough, abdominal pain, vomiting. Denies any history of PE or DVT. Denies any recent travel, hospitalizations or surgeries. She is not on any oral anticoagulation. She did take her baby aspirin this morning prior to coming. [facility] Medical History Severe left ventricular systolic dysfunction (LVSD) Palpitations Right rotator cuff tear Trigger finger of both hands Carpal tunnel syndrome on both sides FHx: cholecystectomy History of left heart catheterization (LHC) (~06/03/21) Essential hypertension Mechanical loosening of prosthetic knee Atherosclerosis of [place] coronary artery of [place] heart without angina pectoris PAD (peripheral artery disease) HLD (hyperlipidemia) Type II diabetes mellitus Home Medications ?Medication ?Instructions ?Recorded ?Last Taken ?Type aspirin 81 mg tablet,delayed 81 mg PO DAILY heart health 12/15/13 06/03/21 History release duloxetine 60 mg capsule,delayed 60 mg PO DAILY mental health 08/20/22 Unknown History release allopurinol 300 mg tablet 300 mg PO BID gout 11/05/23 Unknown History cilostazol 100 mg tablet 100 mg PO BID anti platelet 11/05/23 Unknown History oxycodone-acetaminophen 5 mg-325 1 tab PO TID PRN PRN pain 02/19/24 02/03/24 History mg tablet rosuvastatin 10 mg tablet See Rx Instructions .Route 04/17/24 Unknown Rx .COMPLEX cholesterol #90 TABLETS furosemide 40 mg tablet 40 mg PO DAILY diuretic #90 TABLETS 06/19/24 Unknown Rx glimepiride 4 mg tablet 4 mg PO BID 11/02/24 Unknown History insulin aspar prt-insulin aspart 20 unit subcut QAM diabetes 11/02/24 Unknown History 100 unit/mL (70-30) subcutaneous soln (Novolog Mix 70-30 U-100 Insuln) nitroglycerin 0.4 mg sublingual 0.4 mg sublingual Q5-15M PRN chest 11/02/24 Unknown Rx tablet pain #25 tabs tirzepatide 10 mg/0.5 mL 10 mg subcut .every week 11/02/24 Unknown History subcutaneous pen injector (Mounjasonro) metoprolol tartrate 50 mg tablet 50 mg PO BID blood pressure #180 12/11/24 Unknown Rx tabs Allergy/AdvReac Type Severity Reaction Status Date / Time cefazolin Allergy Shortness Verified 01/07/25 12:23 of breath codeine Allergy Shortness Verified 01/07/25 12:23 of breath morphine Allergy Other Verified 01/07/25 12:23 naloxone (Naloxone) Allergy Shortness Verified 01/07/25 12:23 of breath pentazocine Allergy Shortness Verified 01/07/25 12:23 of breath pentazocine lactate (From Allergy Shortness Verified 01/07/25 12:23 Talwin) of breath atorvastatin AdvReac Severe Severe Verified 01/07/25 12:23 myalgias acetaminophen (From Tylenol) AdvReac Nausea Verified 01/07/25 12:23 Family History Mother Heart disease Surgical History History of cholecystectomy History of coronary artery bypass graft x 3 (~02/27/19) History of prosthetic unicompartmental arthroplasty of left knee Social History Smoking Status: Light Smoker (<10/day) alcohol intake: current alcohol intake frequency: holidays/special occasions only substance use type: does not use caffeine: Yes Type: coffee Number of servings: 3 ROS ROS ED ROS Narrative see HPI EXAM Physical Exam Narrative Exam Narrative: Vital signs: Reviewed General: Alert and oriented x 3. No acute distress HEENT: Head is normocephalic and atraumatic, sinuses nontender, pupils equal round and reactive. Nares are patent. Oropharynx and throat exams normal. Neck: Supple without lymphadenopathy nontender Cardiovascular: Regular rate and rhythm, no murmurs. No rubs or gallops. Normal S1 and S2. Equal and symmetric 2+ pulses radial and DP PT Respiratory: Clear to auscultation bilaterally. No wheezes, rales, rhonchi Abdominal: Soft and nontender. Normal bowel sounds. No guarding or rebound. Nonsurgical abdomen Extremities: No tenderness. No bruising. Normal range of motion. Normal sensation. Skin: No rash or redness. Neurological: Cranial nerves II through XII are grossly intact. Normal strength and sensation. Normal cerebellar function The rest of the physical exam is unremarkable Const Vital Signs: 01/07/25 12:23 01/07/25 13:04 01/07/25 13:06 Temperature 97.3 F L Temperature Source Temporal Pulse Rate 106 H 100 Respiratory Rate 18 21 H Respiratory Effort Short of Breath Blood Pressure 128/98 H 121/57 H Blood Pressure Mean 108 76 Pulse Ox 98 96 Oxygen Delivery Method Room Air 01/07/25 14:00 Temperature Temperature Source Pulse Rate 97 Respiratory Rate 24 H Respiratory Effort Blood Pressure 116/61 Blood Pressure Mean 78 Pulse Ox 98 Oxygen Delivery Method MDM MDM MDM Narrative Medical decision making narrative: Patient is a 74-year-old female presenting to the emergency department for chest pain that started at 9 AM this morning. Patient was seen and examined. Vitals are stable. Patient resting in bed comfortably in no acute distress. Last stress test was in 03/12 and was normal with preserved EF. Last ECHO was 03/12 and shows severe concentric left ventricular hypertrophy with EF of 60%. With normal LV size and stage 1 diastolic dysfunction. Differential includes but is not limited to: ACS, pneumonia, less likely aortic pathology or PE EKG shows normal sinus rhythm with no ischemic changes. No dysrhythmia. 243 mg aspirin given here. She took 1 baby aspirin this morning. Nitro ordered however patient's diastolic blood pressure was slightly low and nurse did not feel comfortable giving at that time. CBC with mild leukocytosis of 11.9 and normal hemoglobin. BMP with baseline mild CKD otherwise no significant abnormalities. D-dimer elevated at 0.83, CT of the chest ordered to rule out pulmonary embolism. CT shows no significant abnormality. Initial troponin elevated at 27. Reflex pending. Discussed patient with Dr. Anderson who states if I am concerned about cardiac cause of the patients chest pain to start on heparin drip and admit to hospitalist for ECHO. Discussed with patient. She has no contraindications for heparin. Heparin drip started. Patient admitted to Dr. Suresh for further management. Clinical impression NSTEMI History & Record Review Discussion w/independent historian: Patient and Family Lab Data Attestation: I reviewed the patient's lab results. Labs: Laboratory Results - last 24 hr 01/07/25 12:32 WBC 11.9 H RBC 4.22 Hgb 13.4 Hct 40.1 MCV 95.0 MCH 31.8 MCHC 33.4 RDW Std Deviation 53.1 H RDW Coeff of Dede 15.2 H Plt Count 312 MPV 11.0 Immature Gran % (Auto) 0.300 Neut % (Auto) 70.0 Lymph % (Auto) 14.8 L Harnett % (Auto) 9.1 Eos % (Auto) 5.2 H Baso % (Auto) 0.6 Absolute Neuts (auto) 8.4 H Absolute Lymphs (auto) 1.76 Nucleated RBC % 0 D-Dimer Quant (PE/DVT) 0.83 H* Sodium 138 Potassium 4.0 Chloride 99 Carbon Dioxide 25.3 Anion Gap 13 BUN 29 H Creatinine 1.26 H Estim Creat Clear Calc 37.37 L Est GFR (MDRD) Non-Af 45 L BUN/Creatinine Ratio 22.7 H Glucose 186 H Calcium 9.5 Troponin T High Sens 27 H Radiography Diagnostic Testing: Clinical Impression(s) from Imaging Studies Chest X-Ray 01/07/25 12:40 IMPRESSION: NO ACUTE FINDINGS. Reading Location: [facility] Chest CTA 01/07/25 13:24 IMPRESSION: No significant abnormality Reading [facility] Discharge Plan Triage Chief Complaint: Chest Pain ED Provider: Elena Bill Dx/Rx/DC Orders Prescriptions: No Action duloxetine 60 mg capsule,delayed release(DR/EC) 60 mg PO DAILY insulin asp prt-insulin aspart [Novolog Mix 70-30 U-100 Insuln] 100 unit/mL (70-30) solution 20 unit subcut QAM Patient Comments: 20-25 cilostazol 100 mg tablet 100 mg PO BID allopurinol 300 mg tablet 300 mg PO BID glimepiride 4 mg tablet 4 mg PO BID Mounjaro 10 mg/0.5 mL pen injector 10 mg subcut .every week Patient Comments: [NO ORIGINAL SIG] nitroglycerin 0.4 mg tablet, sublingual 0.4 mg sublingual Q5-15M PRN (Reason: chest pain) Qty: 25 3RF Rx Instructions: do not exceed 3 doses per episode aspirin 81 MG tablet 81 mg PO DAILY oxycodone-acetaminophen 5-325 mg tablet 1 tab PO TID PRN PRN (Reason: pain) rosuvastatin 10 mg tablet See Rx Instructions .ROUTE .COMPLEX Qty: 90 3RF Dose Instruction: TAKE 1 TABLET BY MOUTH EVERY DAY Rx Instructions: TAKE 1 TABLET BY MOUTH EVERY DAY furosemide 40 mg tablet 40 mg PO DAILY Qty: 90 3RF metoprolol tartrate 50 mg tablet 50 mg PO BID Qty: 180 3RF Primary Care Provider: Marielos Perla Referrals: Marielos Perla DO [Primary Care Provider, Family Practice] Print Language: Romanian
--- NOTE | 2025-01-07 12:45 | EKG12_ITS ---
Test Reason : AR/ER Blood Pressure : */* mmHG Vent. Rate : 99 BPM Atrial Rate : 99 BPM P-R Int : 152 ms QRS Dur : 72 ms QT Int : 332 ms P-R-T Axes : 59 -4 83 degrees QTcB Int : 426 ms Normal sinus rhythm Normal ECG Confirmed by ANTONIO WANG MD ([id number]), supervising editor trailer SHILPA VALENZUELA ([id number]) on 01/08/2025 7:56:38 AM Referred By: Confirmed By: ANTONIO WANG MD
--- OUTSIDE RECORDS SUMMARY | 2025-01-07 12:57 | XMS RPT_ITS | CCD ---
Author Organization [facility] CliniSynj Care Team Providers Care Patient Resource Specialist Name Role Phone Lianet Peters Primary Care Provider Dr. Marielos Perla Primary Care Provider Dr. Marielos Perla Referring Provider MD Bruce Dubon Attending Provider [phone] Marielos Perla Primary Care Provider Dr. Marielos Perla Referring Provider Huy ADJUNCT FACULTY FOR MEDICAL TERMINOLOGY, ADJUNCT FACULTY FOR MEDICAL TERMINOLOGY-C Kaley Attending Provider SKYLER Thakkar Attending Provider Dr. Marielos Perla DO Primary Care Provider Dr. Marielos Perla DO Referring Provider [phone] Elizabeth LOCKHART-CCharlie Attending Provider Mike ADJUNCT FACULTY FOR MEDICAL TERMINOLOGY-CRand Attending Provider Mike ADJUNCT FACULTY FOR MEDICAL TERMINOLOGY-CRand Referring Provider [phone] Marielos Perla DO Primary Care Provider Dr. Marielos Perla DO Referring Provider [phone] Jennifer Thakkar Attending Provider Jennifer Thakkar Referring Provider Dr. Marielos Perla DO Attending Provider [phone] Ava Walker Attending Provider Ava Walker Referring Provider Brian ROMERO, Dr. Rosenthal Attending Provider [phone] Marielos Perla DO Primary Care Physician Mike ADJUNCT FACULTY FOR MEDICAL TERMINOLOGY-C, Rand Attending Physician Jennifer Thakkar Attending Physician Pan LYLE, Dr. Arceo Attending Physician Ava Walker Attending Physician Brian ROMERO, Dr. Rosenthal Attending Physician Malys, Marielos Referring Unavailable Malys, Marielos Primary Care Unavailable Jarod ADJUNCT FACULTY FOR MEDICAL TERMINOLOGYLamar Attending Unavailable Jopperi, Grant Admitting Unavailable Jopperi, Grant Attending Unavailable Jopperi, Grant Consulting Unavailable Malys, Marielos Primary Care Unavailable Grant Torres Attending Unavailable Malys, Marielos Primary Care Unavailable Malys, Marielos Attending Unavailable Malys, Marielos Primary Care Unavailable Malys, Marielos Referring Unavailable Kaushik Castro Attending Unavailable Monica, Jorge Consulting Unavailable Kaushik Castro Consulting Unavailable Monica, Jorge Attending Unavailable Malys, Marielos Primary Care Unavailable Young, Ava Referring Unavailable Young, Ava Attending Unavailable Mike, Rand Referring Unavailable Mike, Rand Attending Unavailable Malys, Marielos Primary Care Unavailable Malys, Marielos Primary Care Unavailable Jennifer Thakkar Referring Unavail able Jennifer Thakkar Attending Unavail able Malys, Marielos Primary Care Unavailable Malys, Amrielos Referring Unavailable Jennifer Thakkar Attending Unavail able Jopperi, Gratn Admitting Unavailable Jopperi, Grant Consulting Unavailable Malys, Marielos Primary Care Unavailable Kaushik Castro Attending Unavailable Monica, Jorge Consulting Unavailable Malys, Marielos Primary Care Unavailable Malys, Marielos Attending Unavailable Malys, Marielos Referring Unavailable Malys, Marielos Primary Care Unavailable Jennifer Thakkar Referring Unavail able Jennifer Thakkar Attending Unavail able Malys, Marielos Primary Care Unavailable Young, Ava Referring Unavailable Young, Ava Attending Unavailable Malys, Marielos Primary Care Unavailable Malys, Marielos Referring Unavailable Young, Ava Attending Unavailable Malys, Marielos Primary Care Unavailable Malys, Marielos Referring Unavailable Young, Ava Attending Unavailable Charlie Johnson Attending Unavailable Malys, Marielos Primary Care Unavailable Malys, Marielos Referring Unavailable Charlie Johnson Attending Unavailable Marielos Perla Primary Care Unavailable Marielos Perla Referring Unavailable Allergies Allergy Classification Reported Allergen(s) Allergy Type Date of Onset Reaction(s) Facility (19 sources) ceFAZolin Drug Allergy 9 Hives, Shortness Of Breath [place] (19 sources) Codeine Drug Allergy 9 Hives, Shortness Of Breath [place] (19 sources) Morphine Drug Allergy 9 Hives, Shortness Of Breath [place] (19 sources) Naloxone Drug Allergy 9 Hives, Shortness Of Breath [place] (19 sources) Pentazocine Drug Allergy 9 Hives, Shortness Of Breath [place] (18 sources) Acetaminophen Drug Allergy 2 Nausea [facility] (18 sources) atorvastatin Drug Allergy 2 Severe myalgias [facility] (19 sources) Pentazocine; Translations: [pentazocine lactate] Drug Allergy 2 Shortness of breath [facility] (1 source) Acetaminophen Drug Allergy 5 [facility] (1 source) atorvastatin Drug Allergy 5 [facility] (1 source) ceFAZolin Drug Allergy 5 [facility] (1 source) Codeine Drug Allergy 5 [facility] (1 source) Morphine Drug Allergy 5 [facility] (1 source) Naloxone Drug Allergy 5 [facility] (1 source) Pentazocine Drug Allergy 5 [facility] Medications Current Medications Medication Drug [...] needed for pain February 19, 2024 12:00am Complies with drug therapy Start: 03-29-2022 End: 02-19-2024 Oxycodone-Acetaminophen (Per cocet) [...] 5-325 MG per tablet Indications: CAD in [place] artery , S/P CABG x 3 Take [...] at 2000 allopurinol 300 mg oral tablet (8 sources) Xanthine Oxidase Inhibitor Start: 11-05-2023 take 1 tablet by mouth twice daily Allopurinol 300 mg tablet Active 300 mg PO TWICE A DAY November 05, 2023 12:00am gout Complies with drug therapy aspirin 81 mg delayed release oral tablet (20 sources) Platelet Aggregation Inhibitor, Nonsteroidal Anti-inflammatory Drug Start: 02-22-2019 End: 02-26-2019 aspirin chewable tablet 81 mg Start: 12-15-2013 take 1 tablet by mouth once da rupert Aspirin 81 MG tablet Active 81 mg PO DAILY December 15, 2013 12:00am [facility] Complies with drug therapy Start: 02-16-2006 take 1 tablet by mouth once da rupert aspirin 81 MG tablet Take 1 tablet by mouth daily 0 02/16/2006 Active bisacodyl 10 mg rectal suppository (1 source) Stimulant Laxative Start: 02-27-2019 take 10 mg rectal route once daily as needed for constipation 10 mg, Rectal, DAILY PRN, Constipation, Starting 02/27/19 at 1635 Second line therapy for constipation, After 24 hours, if no result from first line PRN therapy, give second line therapy in combination with first line therapy. Post-op cilostazol 100 mg oral tablet (20 sources) Phosphodiesterase 3 Inhibitor Start: 11-05-2023 take 1 tablet by mouth twice daily Cilostazol 100 mg tablet Active 100 mg PO TWICE A DAY November 05, 2023 12:00am anti platelet Complies with drug therapy Start: 09-25-2021 End: 08-20-2022 take 1 tablet by mouth twice daily Cilostazol 100 mg tablet Discontinued 100 mg PO TWICE A DAY 60 September 25, 2021 12:00am August 20, 2022 10:00am docusate sodium 50 mg / sennosides, group home 8.6 mg oral tablet (2 sources) Start: 02-27-2019 take 1 tablet by mouth twice daily sennosides-docusate sodium (SENOKOT-S) 8.6-50 MG tablet Take 1 tablet by mouth 2 times daily For stool softener 0 03/03/2019 Active DULoxetine 60 mg delayed release oral capsule (20 sources) Serotonin and Norepinephrine Reuptake Inhibitor Start: 08-20-2022 take 1 capsule by mouth once daily Duloxetine 60 mg capsule,delayed release(DR/EC) Active 60 mg PO DAILY August 20, 2022 12:00am [facility] Complies with drug therapy Start: 09-25-2021 End: 08-20-2022 take 1 capsule [...] TWICE A DAY November 02, 2024 12:00am Complies with drug therapy Start: 08-20-2022 End: 02-21-2024 take 1 tablet [...] insulin aspart, human 30 unt/ml injectable suspension (20 sources) Insulin Analog Start: 11-02-2024 Insulin Asp Prt-Insulin Aspart (Novolog Mix 70-30 U-100 Insuln) 100 unit/mL (70-30) solution Active 20 U SC EVERY MORNING November 02, 2024 10:21am diabetes Complies with drug therapy Start: 03-09-2024 End: 11-02-2024 Insulin Asp Prt-Insulin [...] than 1.9 &nbsp ; No coverage Post-op mupirocin 0.02 mg/mg topical ointment (2 sources) R N A S y n t h e t a s e I n h i b i t o r A n t i b a c t e r i a l Start: 02-26-2019 End: 03-03-2019 Nasal, 2 TIMES DAILY, First dose on Wed02/27/19 at 2100, For 4 days, Post-op nitroglyce rin 0.4 mg sublingual tablet (20 sources) N i t r a t e V a s o d i l a t o r Start: 05-26-2021 End: 11-02-2024 Nitroglycerin 0.4 mg tablet, sublingual Active 0.4 mg SL every 5 to 15 minutes as needed for chest pain 25 3 November 02, 2024 10:53am do not exceed 3 doses per episode Complies with drug therapy Start: 05-26-2021 Nitroglycerin Active 0.4 MG SL every 5 to 15 minutes 90 May 26, 2021 1:00am do not exceed 3 doses per episode 2 ml ondansetron 2 mg/ml injection (1 source) Serotonin-3 Receptor Antagonist Start: 02-27-2019 4 mg, Intravenous, EVERY 8 HOURS PRN, Nausea, Starting Wed02/27/19 at 1635, Post-op Tirzepatide (1 source) Start: 11-02-2024 Tirzepatide (Adriana ervin) 10 mg/0.5 mL pen injector Active 10 mg SC .every week November 02, 2024 12:00am Complies with drug therapy Tirzepatide (May) 10 mg/0.5 mL pen injector (6 sources) Start: 11-02-2024 Tirzepatide (M aziza) 10 mg/0.5 mL pen injector Active 10 [...] 75 mg colchicine 0.6 mg oral tablet (13 sources) Start: 08-20-2022 End: 11-05-2023 take 1 tablet by mouth once daily Colchicine 0.6 mg tablet Discontinued 0.6 mg PO DAILY August 20, 2022 12:00am November 05, 2023 11:35am 12 hr dextromethorphan hydrobromide 30 mg / guaiFENesin 600 mg extended release oral tablet (1 source) Uncompetitive I-xpjspz-J-asparta te Receptor Antagonist, Sigma-1 Agonist Start: 02-25-2019 End: 02-27-2019 dextromethorphan -guaiFENesin (MUCINEX DM) 30-600 MG per extended release tablet 1 tablet doxycycline monohydrate 100 mg oral capsule (8 sources) Tetracycline-class Drug Start: 10-01-2023 End: 11-05-2023 take 1 capsule by mouth twice daily Doxycycline Monohydrate 100 mg capsule Discontinued 100 mg PO TWICE A DAY 20 October 01, 2023 12:00am November 05, 2023 [...] tablet Discontinued 40 mg PO DAILY 90 June 27, 2019 8:52am August 03, 2019 [...] PO DAILY as needed for SOB 30 March 28, 2019 1:00am April 21, 2019 [...] mL/hr), Intravenous, at 1 mL/hr, CONTINUOUS, Starting 02/27/19 at 1700 Target glucose 90-120mg/dl; if glucose [...] interventions based on BGT and call the Temporary Staff Accountant. o Maximum insulin infusion drip rate may not exceed 30 units/hr; Insulin drip may NOT be discontinued unless approved by Temporary Staff Accountant. Discontinue all subcutaneous Insulin orders (if patient is on subcutaneous insulin). Post-op 24 hr isosorbide mononitrate 60 mg extended release oral tablet (20 sources) Nitrate Vasodilator Start: 06-04-2021 End: 11-02-2024 take 1 tablet by mouth twice daily, then take 1 tablet by mouth every twenty-four hours Isosorbide Mononitrate 60 mg tablet extended release 24 hr Discontinued 60 mg PO TWICE A DAY 180 September 25, 2024 8:42am November 02, 2024 [...] 2021 6:28pm linagliptin 5 mg oral tablet (18 sources) Dipeptidyl Peptidase 4 Inhibitor Start: 07-15-2020 End: 01-16-2021 take 1 tablet by mouth once daily Linagliptin 5 mg tablet Discontinued 5 mg PO DAILY July 15, 2020 12:00am January 16, 2021 10:25am lisinopril 5 mg oral tablet (1 source) Angiotensin Converting Enzyme Inhibitor Start: 02-22-2019 End: 02-26-2019 lisinopril (PRINIVIL;ZESTRIL) tablet 10 mg losartan potassium 25 mg oral tablet (16 sources) Angiotensin 2 Receptor Channing Start: 02-21-2024 End: 11-02-2024 take 1 tablet by mouth once daily Losartan 25 mg tablet Discontinued 25 mg PO DAILY 90 3 May 15, 2024 11:17am November 02, 2024 10:23am metFORMIN hydrochloride 1000 mg oral tablet (19 sources) Biguanide Start: 02-20-2019 End: 03-28-2019 take 1 tablet by mouth at bedtime Metformin 1000 MG tablet Discontinued 1000 mg PO AT BEDTIME February 20, 2019 1:00am March 28, 2019 1:35pm Diabetes Start: 06-30-2006 End: 03-03-2019 take 1 tablet by mouth once daily metFORMIN (GLUCOPHAGE) 500 MG tablet Take 1 tablet by mouth nightly 0 06/30/2006 03/03/2019 Discontinued (Stop Taking at Discharge) metoprolol tartrate 50 mg oral tablet (20 sources) beta-Adrenergic Channing Start: 12-03-2022 End: 12-11-2024 take 1 tablet by mouth twice daily Metoprolol Tartrate 50 mg tablet Discontinued 50 mg PO TWICE A DAY 180 3 December 13, 2023 9:03am December 11, 2024 3:04pm blood pressure Start: 03-28-2019 End: 12-03-2022 take 1 tablet by mouth twice daily Metoprolol Tartrate 25 mg tablet Discontinued 25 mg PO TWICE A DAY 180 August 20, 2022 3:00pm December 03, 2022 2:10pm Start: 02-22-2019 metoprolol tar trate (LOPRESSOR) tablet 25 mg multivitamin capsule (10 sources) Start: 03-28-2019 End: 08-20-2022 take 1 capsule by mouth once daily multivitamin capsule Discontinued 1 CAP PO DAILY March 28, 2019 12:00am August 20, 2022 9:00am Start: 03-28-2019 End: 08-20-2022 take 1 capsule by mouth once daily multivitamin capsule Discontinued 1 CAP PO DAILY March 28, 2019 1:00am August 20, 2022 10:00am Start: 03-28-2019 take 1 capsule by mo ut once daily multivitamin capsule Active 1 CAP PO DAILY March 28, 2019 1:00am Start: 03-28-2019 take 1 capsule by mo ut once daily multivitamin capsule Active 1 CAP PO DAILY March 28, 2019 12:00am Multivitamin capsule (8 sources) Start: 03-28-2019 End: 08-20-2022 Multivitamin capsule [...] pantoprazole 40 mg delayed release oral tablet (20 sources) Proton Pump Inhibitor Start: 03-01-2019 End: 04-03-2019 take 1 tablet by mouth once daily Pantoprazole (Protonix) 40 mg tablet,delayed release (DR/EC) Discontinued 40 mg PO DAILY March 28, 2019 1:00am March 28, 2019 2:41pm polyethylene glycol 3350 32163 mg powder for oral solution (20 sources) Osmotic Laxative Start: 02-27-2019 End: 04-03-2019 [...] hours. Post-op quinapril 20 mg oral tablet (19 sources) Angiotensin Converting Enzyme Inhibitor Start: 06-15-2006 [...] 1 TABLET BY MOUTH EVERY DAY sennosides, group home 8.6 mg oral tablet (20 sources) [...] 2020 10:46am SITagliptin 50 mg oral tablet (18 sources) Dipeptidyl Peptidase 4 Inhibitor Start: 01-08-2020 [...] 10 mL, Intravenous, PRN, Line Care, Starting 02/27/19 at 1635 After every IV line use Post-op Start: 02-27-2019 End: 03-02-2019 Intravenous, at 20 mL/hr, CONTINUOUS, Starting Wed02/27/19 at 1700 20 ml/hr to SP(introducer) and WT on [place] Jose Catheter; once [place] discontinued run at 20 ml/hr through SP(introducer) Post-op Start: 02-22-2019 End: 02-27-2019 10 mL, Intravenous, EVERY 12 HOURS SCHEDULED (2 times per day), First dose on Wed02/27/19 at 2100, Post-op Tirzepatide (1 source) Start: 06-05-2024 End: 11-02-2024 Tirzepatide (Mounjaro) 2.5 mg/0.5 mL pen injector Discontinued 2.5 mg SC EVERY WEEK June 05, 2024 1:00am November 02, 2024 10:24am Tirzepatide (Mounjaro) 2.5 mg/0.5 mL pen injector (7 sources) Start: 06-05-2024 End: 11-02-2024 Tirzepatide (Mounjaro) [...] Problem Classification Problem Date Documented Date Episodic/Chronic Abdominal pain (1 source) Pelvic and perineal pain; Translations: [Pelvic and perineal pain] Onset: 12-05-2024 Episodic Cardiac dysrhythmias (14 sources) Palpitations; Translations: [Palpitations] 11-18-2022 Episodic Chronic obstructive pulmonary disease and bronchiectasis (8 sources) Bronchitis; Translations: [Bronchitis, not specified as acute or chronic] 10-09-2023 Episodic Complication of device; implant or graft (18 sources) Loosening of knee joint prosthesis; Translations: [Mechanical loosening of other internal prosthetic joint, initial encounter] 05-19-2021 Episodic Conditions associated with dizziness or vertigo (18 sources) Dizziness; Translations: [Dizziness and giddiness] 01-16-2021 Episodic Congestive heart failure; nonhypertensive (2 sources) Systolic heart failure; Translations: [HFrEF (heart failure with reduced ejection fraction)] 02-23-2019 Chronic Coronary atherosclerosis and other heart disease (20 sources) Coronary arteriosclerosis in [place] artery; Translations: [Coronary atherosclerosis] Onset: 02-22-2019 03-03-2019 Chronic Comment on above: CABG x3 with GIRALDO to LAD, SVG to OM 2, and SVG to PDA of RCA on 02/27/[address] Taylor at [facility]; Coronary atherosclerosis and other heart disease (9 sources) History of coronary artery bypass grafting; Translations: [Presence of aortocoronary bypass graft] Onset: 02-17-2019 03-03-2019 Episodic Diabetes mellitus with complications (1 source) Type 2 diabetes mellitus with hyperglycemia; Translations: [Type 2 diabetes mellitus with hyperglycemia] Onset: 02-20-2024 Chronic Diabetes mellitus without complication (20 sources) Type 2 diabetes mellitus; Translations: [Diabetes mellitus] 02-23-2019 Chronic Disorders of lipid metabolism (20 sources) Hyperlipidemia; Translations: [Hyperlipidemia, unspecified] Onset: 03-02-2024 03-28-2019 Chronic Esophageal disorders (18 sources) Gastroesophageal reflux disease; Translations: [Gastro-esophageal reflux disease without esophagitis] 02-21-2019 Chronic Essential hypertension (20 sources) Hypertensive disorder; Translations: [Essential hypertension] Onset: 03-02-2024 02-23-2019 Chronic Fluid and electrolyte disorders (2 sources) Hyperkalemia; Translations: [Hyperkalemia] 03-03-2019 Episodic Other and ill-defined heart disease (12 sources) Left ventricular systolic dysfunction; Translations: [Other ill-defined heart diseases] 11-02-2024 Chronic Other and ill-defined heart disease (2 sources) Severe left ventricular systolic dysfunction; Translations: [Other ill-defined heart diseases] 11-02-2024 Chronic Other and ill-defined heart disease (1 source) Other ill-defined heart diseases; Translations: [Other ill-defined heart diseases] Onset: 12-13-2024 Chronic Other connective tissue disease (18 sources) History of prosthetic unicompartmental arthroplasty of left knee; Translations: [Presence of left artificial knee joint] 05-19-2021 Chronic Other connective tissue disease (7 sources) Unspecified rotator cuff tear or rupture of right shoulder, not specified as traumatic; Translations: [Tear of right rotator cuff] 06-09-2022 Episodic Other connective tissue disease (10 sources) Tear of right rotator cuff; Translations: [Unspecified rotator cuff tear or rupture of right shoulder, not specified as traumatic] 06-09-2022 Episodic Other lower respiratory disease (20 sources) Dyspnea on exertion; Translations: [Other forms of dyspnea] 01-16-2021 Episodic Other lower respiratory disease (15 sources) Dyspnea; Translations: [Shortness of breath] 08-14-2022 Episodic Other nervous system disorders (6 sources) Neuropathy of lower limb; Translations: [Unspecified mononeuropathy of unspecified lower limb] 12-12-2024 Chronic Other screening for suspected conditions (not mental disorders or infectious disease) (18 sources) Cardiovascular stress test abnormal; Translations: [Abnormal result of other cardiovascular function study] 02-21-2019 Episodic Peripheral and visceral atherosclerosis (20 sources) Peripheral vascular disease, unspecified; Translations: [Peripheral arterial disease] Onset: 01-02-2025 03-28-2019 Chronic Comment on above: Right lower extremit y arterial occlusive disease consistent with right superficial femoral artery 01/09/2017; Skin and subcutaneous tissue infections (8 sources) Cellulitis; Translations: [Cellulitis, unspecified] 10-09-2023 Episodic Superficial injury; contusion (20 sources) Contusion of shoulder region; Translations: [Contusion of right shoulder, initial encounter] 04-06-2022 Episodic Past or Other Problems Problem Classification Problem Date Documented Date Episodic/Chronic Nonspecific chest pain (20 sources) Chest pain; Translations: [Chest pain, unspecified] Onset: 03-02-2024 02-21-2019 Episodic Other lower respiratory disease (1 source) Other forms of dyspnea; Translations: [Other forms of dyspnea] Onset: 03-02-2024 Episodic Residual codes; unclassified (18 sources) History of cardiac catheterization; Translations: [Other [...] AORTIC ROOT: Angiographically normal per cath 02/22/19 Spondylosis; intervertebral disc disorders; other back problems (1 source) Lumbago with sciatica, right side; Translations: [Lumbago with sciatica, right side] Onset: 09-23-2024 Episodic Results Test Name Value Interpretation Reference Range Facility Arterial study reportOrdered By: Grant Torres on 12-25-2024 Noninvasive arteriosclerosis study report [facility] [address] [place] [address] Lower Ext Art Exam w/ Exercise 12/22/24 0956 MR#: [id number] Acct: [id number] Name: CHRISTY FRANCIS Rep #:[id number] : 1950 74 From: Grant Mendez Attending Dr: SKYLER Watson Stat us: REG CLI Ordering Dr: Ava Young Date: Location: [facility] Sex: F C Admitted: Reason For Study Reason For Study: Claudication Procedure A bilateral lower extremity continuous wave Doppler with analog waveform analysis,segmental pressures,and ankle brachial indexes with exercise. Left Segmental Pressures Left brachial= 138mmHg. Left high thigh = 144mmHg. Left low thigh = 134mmHg. Left calf = 84mmHg. Left posterior tibial artery = 85mmHg. Left dorsalis pedis artery = 82mmHg. Left digit = 52 mmHg. Right Segmental Pressures Right brachial= 136mmHg. Right high thigh = 181mmHg. Right low thigh = 187mmHg. Right calf = 181mmHg. Right posterior tibial artery = 99mmHg. Right dorsalis pedis artery = 106mmHg. Right digit = 55 mmHg. Indices The right ankle brachial index by the posterior tibial artery is 0.72. The rightankle brachial index by the dorsalis pedis is 0.77. The right digital-brachial index is 0.40. The right post exerciseankle brachial index is 0.64. The left ankle brachial index by the posterior tibial artery is 0.62. The left ankle brachial index by the dorsalis pedis is 0.59. The left digital-brachial index is 0.38. The left post exercise ankle brachial index is 0.30. VL/Lower Ext Art Exam w/ Exercise Interpretation Summary Right ISIDRO 0.77, moderate arterial insufficiency. Doppler/PVR waveforms and segmental pressures reveal infrapoplital disease. Right lower extremity exhibits no change response to exercise Left ISIDRO 0.62, moderate arterial insufficiency. Doppler/PVR waveforms and segmental pressures reveal distal SFA/popliteal disease. Left lower extremity with abnormal response to exercise and post exercise ISIDRO inthe severe category. ___ Ordering Physician: Ava Young Referring Physician: Marielos Perla Performed By: Rand Johnson RDCS/RVT 12/25/24 1238 Date _ Grant Torres MD CC: SKYLER Watson; Dr. Marielos Perla DO ~ Date Dictated: 12/22/24955 Date Transcribed: 12/25/24 1238 Hay Sorter: Signed [facility] Work Phone: Lower Ext Art Exam w/ Exerci mai 12-22-2024 Lower Ext Art Exam w/ Exercise [facility] [address] [place] [address] Lower Ext Art Exam w/ Exercise 12/22/24955 MR#: [id number] Acct: [id number] Name: CHRISTY FRANCIS Rep #: [id number] : 1950 74 From: Grant Torres MD Attending Dr: SKYLER Watson Status: REG CLI Ordering Dr: Ava Young Date: 12/22/24 Location: [facility] Sex: F C Admitted: Reason For Study Reason For Study: Claudication Procedure A bilateral lower extremity continuous wave Doppler with analog waveform analysis,segmental pressures,and ankle brachial indexes with exercise. Left Segmental Pressures Left brachial= 138mmHg. Left high thigh = 144mmHg. Left low thigh = 134mmHg. Left calf = 84mmHg. Left posterior tibial artery = 85mmHg. Left dorsalis pedis artery = 82mmHg. Left digit = 52 mmHg. Right Segmental Pressures Right brachial= 136mmHg. Right high thigh = 181mmHg. Right low thigh = 187mmHg. Right calf = 181mmHg. Right posterior tibial artery = 99mmHg. Right dorsalis pedis artery = 106mmHg. Right digit = 55 mmHg. Indices The right ankle brachial index by the posterior tibial artery is 0.72. The right ankle brachial index by the dorsalis pedis is 0.77. The right digital-brachial index is 0.40. The right post exercise ankle brachial index is 0.64. The left ankle brachial index by the posterior tibial artery is 0.62. The left ankle brachial index by the dorsalis pedis is 0.59. The left digital-brachial index is 0.38. The left post exercise ankle brachial index is 0.30. VL/Lower Ext Art Exam w/ Exercise Interpretation Summary Right ISIDRO 0.77, moderate arterial insufficiency. Doppler/PVR waveforms and segmental pressures reveal infrapoplital disease. Right lower extremity exhibits no change response to exercise Left ISIDRO 0.62, moderate arterial insufficiency. Doppler/PVR waveforms and segmental pressures reveal distal SFA/popliteal disease. Left lower extremity with abnormal response to exercise and post exercise ISIDRO in the severe category. ___ Ordering Physician: Ava Young Referring Physician: Marielos Perla Performed By: Rand Johnson RDCS/RVT 12/25/24 1238 Date Grant Torres MD CC: SKYLER Watson; Dr. Marielos Perla, Date Dictated: 12/22/2456 Date Transcribed: 12/25/24 1238 Hay Sorter: Signed [facility] Lumbar Spine 2 or 3 Viewson 12-22-2024 Lumbar Spine 2 or 3 Views [facility] Imaging Services [address] [place] [address] Lumbar Spine 2 or 3 Views MR#: [id number] Acct: [id number] Name: CHRISTY FRANCIS Rep #: [id number] : 1950 F 74 From: Ted Bullock MD PCP: Dr. Marielos Perla, Status: REG CLI Study: Lumbar Spine 2 or 3 Views Date of Exam: Exam# [id number] Ordering Dr: Ava Young EXAM: XR Lumbosacral Spine, 2 or 3 Views CLINICAL INDICATION: LLE WEAKNESS, NEUROPATHY TECHNIQUE: Frontal and lateral views of the lumbar spine and sacrum. COMPARISON: No relevant prior studies available. FINDINGS: VERTEBRAE: Degenerative facet arthropathy throughout the lumbar spine, most prominent in the lower lumbar spine. Normal alignment. No acute fracture. SACRUM/COCCYX: Unremarkable as visualized. No acute fracture. DISC SPACES: Degenerative disc disease throughout the lumbar spine. SOFT TISSUES: Unremarkable. VASCULATURE: Scattered calcified atherosclerotic disease of aorta. RAD/Lumbar Spine 2 or 3 Views IMPRESSION: 1. No acute fracture. 2. If symptoms persist, further evaluation with MRI is recommended. 3. Degenerative changes lumbar spine as described. Reading Location: [id number] CC: SKYLER Watson; Dr. Marielos Perla DO Hay Sorter: Signed [facility] MR/BMS.BVSon 12-12-2024 MR/BMS.BVS [facility] Vascular Surgery [address] [place] [address] OFFICE VISIT Date of Service: 12/12/24 MR#: [id number] Acct: [id number] Name: CHRISTY FRANCIS Rep #: [id number] : 1950 Provider: SKYLER Watson Age/Sex: 74/F Location: [facility] Status: Signed Intake Vital Signs 11/02/24 10:17 12/12/24 10:53 Height 5 ft 2 in Weight: 168 lb BP 126/78 H Blood Pressure Location Rt brachial Position Sitting Respiration 18 Pulse 112 H Pulse Source Monitor Temp 97.7 F L Temp Source Temporal Pulse Oximetry (%) 98 Oxygen Delivery Method room air Intake Visit Reasons: PAD Chief Complaint: right shoulder Is patient in pain?: Yes Allergies cefazolin Allergy (Verified 12/12/24 10:41) Shortness of breath codeine Allergy (Verified 12/12/24 10:41) Shortness of breath morphine Allergy (Verified 12/12/24 10:41) Other naloxone (Naloxone) Allergy (Verified 12/12/24 10:41) Shortness of breath pentazocine Allergy (Verified 12/12/24 10:41) Shortness of breath pentazocine lactate (From Talwin) Allergy (Verified 12/12/24 10:41) Shortness of breath atorvastatin Adverse Reaction (Severe, Verified 12/12/24 10:41) Severe myalgias acetaminophen (From Tylenol) Adverse Reaction (Verified 12/12/24 10:41) Nausea Medications ???Medication ???Instructions ???Recorded ???Confirmed ???Type aspirin 81 mg tablet,delayed 81 mg PO DAILY heart health 12/12/24 History release duloxetine 60 mg capsule,delayed 60 mg PO DAILY mental health 08/2012/12/24 History release allopurinol 300 mg tablet 300 mg PO BID gout 11/05/23 History cilostazol 100 mg tablet 100 mg PO BID anti platelet 12/12/24 History oxycodone-acetaminophen 5 mg-325 1 tab PO TID PRN PRN pain 02/19/24 12/12/24 History mg tablet rosuvastatin 10 mg tablet See Rx Instructions .Route 4 12/12/24 Rx .COMPLEX cholesterol #90 TABLETS furosemide 40 mg tablet 40 mg PO DAILY diuretic #90 TABLET S 06/19/24 12/12/24 Rx glimepiride 4 mg tablet 4 mg PO BID 11/02/24 12/12/24 Hist ory insulin aspar prt-insulin aspart 20 unit subcut QAM diabetes 12/12/24 History 100 unit/mL (70-30) subcutaneous soln (Novolog Mix 70-30 U-100 Insuln) nitroglycerin 0.4 mg sublingual 0.4 mg sublingual Q5-15M PRN chest 11/02/24 12/12/24 Rx tablet pain #25 tabs tirzepatide 10 mg/0.5 mL 10 mg subcut .every week 11/02/24 12/12/24 History subcutaneous pen injector (May) metoprolol tartrate 50 mg tablet 50 mg PO BID blood pressure #180 0 12/11/24 12/12/24 Rx tabs Is last menstrual period known: No Post menopausal: Yes Patient : No Have you fallen in the past year?: No PFSH Medical History Severe left ventricular systolic dysfunction (LVSD) Palpitations Right rotator cuff tear Trigger finger of both hands Carpal tunnel syndrome on both sides FHx: cholecystectomy History of left heart catheterization (LHC) ( 06/03/21) Essential hypertension Mechanical loosening of prosthetic knee Atherosclerosis of [place] coronary artery of [place] heart without angina pectoris PAD (peripheral artery disease) HLD (hyperlipidemia) Type II diabetes mellitus Surgical History History of cholecystectomy History of coronary artery bypass graft x 3 ( 02/27/19) History of prosthetic unicompartmental arthroplasty of left knee Family History Mother Heart disease Social History Smoking Status: Light Smoker (<10/day) alcohol intake: current alcohol intake frequency: holidays/special occasions only substance use type: does not use caffeine: Yes Type: coffee Number of servings: 3 HPI HPI HPI: CHRISTY FRANCIS, is a 74 F who presents to the office today to establish ongoing care for her PAD for which she has previously followed with Dr. Singh. She is accompanied to her appointment today by her qhibtjyr-op-wlc Lynda who is an RN and helps with her medical care. Her most recent arterial testing here was 10/01/23 showing R ISIDRO 0.71 with monophasic waveforms and L ISIDRO 0.56 with mono/biphasic waveforms. In review of studies dating back to 2019 this has been fairly stable, slow downward trend. Arterial duplex in 2020 suggested L SFA occlusion and severe R SFA stenosis. She reports no lower extremity revascularization procedures. She is diabetic. She does smoke; she has quit before but restarted when her and a niece passed recently. Her primary complaint is numbness and progressive weakness in her left leg. She reports numbness from her toes up to just below her k (more content not included)... [facility] Anion gap in Serum or Plasma Ordered By: Jennifer Bailey on 12-06-2024 Anion gap [Moles/Vol] 14 mmol/L 08-31 [facility] BUN/creatinine ratioOrdered By: Jennifer Bailey on 12-06-2024 Urea nitrogen/Creatinine [Mass ratio] 22.5 mg/mg High 02-05 [facility] Basic Metabolic Profile (BMP )on 12-06-2024 BUN/CRE 22.5 RATIO High 02-05 [facility] Comment on above: Performed By: #### L 501.080 #### [facility] [address] [place], [address] Calcium [Mass/Vol] 9.5 mg/dL Normal 7.6-11.0 [facility] Comment on above: Performed By: #### L 501.080 #### [facility] [address] [place], [address] Chloride [Moles/Vol] 98 mmol/L Normal 98-108 [facility] Comment on above: Performed By: #### L 501.080 #### [facility] [address] [place], [address] CO2 [Moles/Vol] 26.5 mmol/L Normal 21.0-32.0 [facility] Comment on above: Performed By: #### L 501.080 #### [facility] [address] [place], [address] Creatinine [Mass/Vol] 1.42 mg/dL High 0.70-1.20 [facility] Comment on above: Performed By: #### L 501.080 #### [facility] [address] [place], [address] GAP 14 Normal 5-15 [facility] Comment on above: Performed By: #### L 501.080 #### [facility] [address] [place], [address] GFR/1.73 sq M.predicted among non-blacks MDRD (S/P/Bld) [Vol rate/Area] 39 mL/min/{1.73_m2} Low >60 [facility] Comment on above: Result Comment: mL/m in/1.73m2 CKD-EPI Creatinine Equation (2020) Performed By: #### L 501.080 #### [facility] [address] [place], [id number] Glucose [Mass/Vol] 169 mg/dL High 70-99 [facility] Comment on above: Performed By: #### L 501.080 #### [facility] [address] [place], [id number] Potassium [Moles/Vol] 4.2 mmol/L Normal 3.3-5.1 [facility] Comment on above: Performed By: #### L 501.080 #### [facility] [address] [place], [id number] Sodium [Moles/Vol] 138 mmol/L Normal 133-145 [facility] Comment on above: Performed By: #### L 501.080 #### [facility] [address] [place], [id number] Urea nitrogen [Mass/Vol] 32 mg/dL High 4-19 [facility] Comment on above: Performed By: #### L 501.080 #### [facility] [address] [place], [id number] Carbon dioxide, total [Moles /volume] in Central venous bloodOrdered By: Jennifer Bailey on 12-06-2024 CO2 [Moles/Vol] 26.5 mmol/L 21.0-32.0 [facility] Chloride assayOrdered By: Shantell Bailey on 12-06-2024 Chloride [Moles/Vol] 98 mmol/L 98-108 [facility] Glomerular filtration rate ( GFR) estimation/1.73 sq m using serum, plasma, or whole bOrdered By: Jennifer Bailey on 12-06-2024 GFR/1.73 sq M.predicted among non-blacks MDRD (S/P/Bld) [Vol rate/Area] 39 mL/min/{1.73_m2} Low >60 [facility] Comment on above: mL/min/1.73m2 CKD-EP I Creatinine Equation (2020) Potassium measurement (mass/ volume)Ordered By: Jennifer Bailey on 12-06-2024 Potassium (Unsp spec) [Mass/Vol] 4.2 mmol/L 3.3-5.1 [facility] Serum creatinine measurement (mass/volume)Ordered By: Jennifer Bailey on 12-06-2024 Creatinine [Mass/Vol] 1.42 mg/dL High 0.70-1.20 [facility] Serum glucose measurement (m ass/volume)Ordered By: Jennifer Bailey on 12-06-2024 Glucose [Mass/Vol] 169 mg/dL High 70-99 [facility] Serum or plasma calcium shannon urement (mass/volume)Ordered By: Jennifer Bailey on 12-06-2024 Calcium [Mass/Vol] 9.5 mg/dL 7.6-11.0 [facility] Serum or plasma urea nitroge n measurement (mass/volume)Ordered By: Jennifer Bailey on 12-06-2024 Urea nitrogen [Mass/Vol] 32 mg/dL High 4-19 [facility] Sodium levelOrdered By: Estiven Bailey on 12-06-2024 Sodium [Moles/Vol] 138 mmol/L 133-145 [facility] Pelvic w/ Transvaginalon Pelvic w/ Transvaginal [facility] Imaging Services [address] [place], [place] [address] Pelvic w/ Transvaginal MR#: [id number] Acct: [id number] Name: CHRISTY FRANCIS Rep #: [id number] : 1950 F 74 From: Demarcus dominguez MD PCP: Dr. Marielos Perla DO Status: REG CLI Study: Pelvic w/ Transvaginal Date of Exam: 11/29/24 Exam# [id number] Ordering Dr: Marielos Perla DO PROCEDURE: PELVIC W/ TRANSVAGINAL REASON FOR EXAM: PAIN RLQ TECHNIQUE: PELVIC W/ TRANSVAGINAL COMPARISON: None FINDINGS: Measurements: Uterus: 8.1 cm x 5.2 cm x 3.6 cm with a volume of 77.26 mL Endometrial Thickness: 6.6 mm. This is thickened for the patient's postmenopausal state. Right Ovary: Nonvisualized. Left Ovary: Nonvisualized. TRANSABDOMINAL: Uterus: There is a 1.4 cm 1.6 cm 1.6 cm fundal fibroid. Endometrium: Endometrium is thickened measuring 6.6 mm for the patient's postmenopausal phase. Clinical correlation recommended. Right ovary: Not visualized. Left ovary: Not visualized. Other: No large pelvic mass identified. Transvaginal sonography was performed to better visualize the endometrium. TRANSVAGINAL: Uterus: Anteverted. 1.4 cm x 1.6 cm 1.6 cm fundal fibroid. Endometrium: Endometrium is thickened measuring 6.6 mm. Further evaluation recommended. Right ovary: Not visualized. Left ovary: Not visualized. Other adnexal findings: Cul-de-sac: No free intraperitoneal fluid identified. Tenderness: No tenderness US/Pelvic w/ Transvaginal IMPRESSION: Endometrial thickening. Clinical correlation recommended. Reading Location: [id number] CC: Dr. Marielos Perla DO Hay Sorter: Signed [facility] Anion gap in Serum or Plasma Ordered By: Jennifer Bailey on 11-02-2024 Anion gap [Moles/Vol] 15 mmol/L - [facility] BUN/creatinine ratioOrdered By: Jennifer Bailey on 11-02-2024 Urea nitrogen/Creatinine [Mass ratio] 20.1 mg/mg High - [facility] Basic Metabolic Profile (BMP )on 11-02-2024 BUN/CRE 20.1 RATIO High 02-05 [facility] Comment on above: Performed By: #### L 502.0250, L500.4100, L500.4050, L100.0100 #### [facility] [address] [place], [address] Calcium [Mass/Vol] 9.9 mg/dL Normal 7.6-11.0 [facility] Comment on above: Performed By: #### L 502.0250, L500.4100, L500.4050, L100.0100 #### [facility] [address] [place], [address] Chloride [Moles/Vol] 98 mmol/L Normal 98-108 [facility] Comment on above: Performed By: #### L 502.0250, L500.4100, L500.4050, L100.0100 #### [facility] [address] [place], [address] CO2 [Moles/Vol] 23.7 mmol/L Normal 21.0-32.0 [facility] Comment on above: Performed By: #### L 502.0250, L500.4100, L500.4050, L100.0100 #### [facility] [address] [place], [address] Creatinine [Mass/Vol] 1.77 mg/dL High 0.70-1.20 [facility] Comment on above: Performed By: #### L 502.0250, L500.4100, L500.4050, L100.0100 #### [facility] [address] [place], [address] GAP 15 Normal 5-15 [facility] Comment on above: Performed By: #### L 502.0250, L500.4100, L500.4050, L100.0100 #### [facility] [address] [place], [address] GFR/1.73 sq M.predicted among non-blacks MDRD (S/P/Bld) [Vol rate/Area] 30 mL/min/{1.73_m2} Low >60 [facility] Comment on above: Result Comment: mL/m in/1.73m2 CKD-EPI Creatinine Equation (2020) Performed By: #### L 502.0250, L500.4100, L500.4050, L100.0100 #### [facility] [address] [place], [address] Glucose [Mass/Vol] 127 mg/dL High 70-99 [facility] Comment on above: Performed By: #### L 502.0250, L500.4100, L500.4050, L100.0100 #### [facility] [address] [place], [address] Potassium [Moles/Vol] 4.8 mmol/L Normal 3.3-5.1 [facility] Comment on above: Performed By: #### L 502.0250, L500.4100, L500.4050, L100.0100 #### [facility] [address] [place], [address] Sodium [Moles/Vol] 137 mmol/L Normal 133-145 [facility] Comment on above: Performed By: #### L 502.0250, L500.4100, L500.4050, L100.0100 #### [facility] [address] [place], [address] Urea nitrogen [Mass/Vol] 36 mg/dL High 4-19 [facility] Comment on above: Performed By: #### L 502.0250, L500.4100, L500.4050, L100.0100 #### [facility] [address] [place], [address] Carbon dioxide, total [Moles /volume] in Central venous bloodOrdered By: Jennifer Bailey on 11-02-2024 CO2 [Moles/Vol] 23.7 mmol/L 21.0-32.0 [facility] Cardiology Visit Reporton Cardiology Visit Report [facility] [address] [place] [address] OFFICE VISIT Date of Service: 11/02/24 MR#: [id number] Acct: [id number] Name: CHRISTY FRANCIS Rep #: [id number] : 1950 Provider: SKYLER Low Age/Sex: 74/F Location: [facility] Status: Signed HPI HPI History of Present [...] with Dr. Singh of peripheral vascular surgery). Echocardiogram from 02/26/2024 demonstrated an ejection fraction of 60%, severe LVH, stage I diastolic dysfunction. LVH is a newer finding. Stress test at that time was negative for ischemia. This was a pharmacologic stress test. She does still occasionally have chest heaviness. This comes and goes. It is not concerning for her. She does not have any worsening SOB. She does need to take an extra lasix every 2-3 days. She does this when her legs are swollen. This has been going on over the last 3 months. She has lost 20 lbs. She is changing her diet. She is exercising routinely. She is on a GLP1. Intake Vital Signs 11/05/23 11:29 06/05/24 10:52 11/02/24 10:17 Height 5 ft 2.5 in 5 ft 2 in 5 ft 2 in Weight: 167 lb BMI 30.5 BP 112/65 Blood Pressure Location Rt brachial Position Sitting Respiration 18 Pulse Source Monitor Intake Visit Reasons: 1 Y FU Boat Officer Required: No Accompanied by: Self Is patient in pain?: No Allergies cefazolin Allergy (Verified 11/02/24 10:20) Shortness of breath codeine Allergy (Verified 11/02/24 10:20) Shortness of breath morphine Allergy (Verified 11/02/24 10:20) Other naloxone (Naloxone) Allergy (Verified 11/02/24 10:20) Shortness of breath pentazocine Allergy (Verified 11/02/24 10:20) Shortness of breath pentazocine lactate (From Talwin) Allergy (Verified 11/02/24 10:20) Shortness of breath atorvastatin Adverse Reaction (Severe, Verified 11/02/24 10:20) Severe myalgias acetaminophen (From Tylenol) Adverse Reaction (Verified 11/02/24 10:20) Nausea Medications ???Medication ???Instructions ???Recorded ???Confirmed ???Type aspirin 81 mg tablet,delayed 81 mg PO DAILY heart health 11/02/24 History release duloxetine 60 mg capsule,delayed 60 mg PO DAILY mental health 08/2011/02/24 History release allopurinol 300 mg tablet 300 mg PO BID gout 11/05/23 History cilostazol 100 mg tablet 100 mg PO BID anti platelet 11/02/24 History metoprolol tartrate 50 mg tablet 50 mg PO BID blood pressure #180 0 12/13/23 11/02/24 Rx tabs oxycodone-acetaminophen 5 mg-325 1 tab PO TID PRN PRN pain 02/19/24 11/02/24 History mg tablet rosuvastatin 10 mg tablet See Rx Instructions .Route 4 11/02/24 Rx .COMPLEX cholesterol #90 TABLETS furosemide 40 mg tablet 40 mg PO DAILY diuretic #90 TABLET S 06/19/24 11/02/24 Rx glimepiride 4 mg tablet 4 mg PO BID 11/02/24 11/02/24 Hist ory insulin aspar prt-insulin aspart 20 unit subcut QAM diabetes 11/02/24 History 100 unit/mL (70-30) subcutaneous soln (Novolog Mix 70-30 U-100 Insuln) nitroglycerin 0.4 mg sublingual 0.4 mg sublingual Q5-15M PRN chest 11/02/24 11/02/24 Rx tablet pain #25 tabs tirzepatide 10 mg/0.5 mL 10 mg subcut .every week 11/02/24 11/02/24 History subcutaneous pen injector (Mounjasonro) Ejection fraction %: 60 Have you fallen in the past year?: Yes (stumbled on treadmill) [facility] Medical History (Updated 11/02/24 @ 10:44 by Jennifer Bailey PA, PA) Severe left ventricular systolic dysfunction (LVSD) Palpitations Right rotator cuff tear Trigger finger of both hands Carpal tunnel syndrome on both sides FHx: cholecystectomy History of left heart catheterization (LHC) ( 06/03/21) Essential hypertension Mechanical loosening of prosthetic knee Atherosclerosis of [place] coronary artery of [place] heart without angina pectoris PAD (peripheral artery disease) HLD (hyperlipidemia) Type II diabetes mellitus Surgical History History of coronary artery bypass graft x 3 ( 02/27/19) History of prosthetic unicompartmental arthroplasty of left knee Family History Mother Heart disease Social History Smoking Status: Light Smoker (<10/day) alcohol intake: current alcohol intake frequency: ho (more content not included)... [facility] Chloride assayOrdered By: Shantell Bailey on 11-02-2024 Chloride [Moles/Vol] 98 mmol/L 98-108 [facility] Glomerular filtration rate ( GFR) estimation/1.73 sq m using serum, plasma, or whole bOrdered By: Jennifer Bailey on 11-02-2024 GFR/1.73 sq M.predicted among non-blacks MDRD (S/P/Bld) [Vol rate/Area] 30 mL/min/{1.73_m2} Low >60 [facility] Comment on above: mL/min/1.73m2 CKD-EP I Creatinine Equation (2020) Potassium measurement (mass/ volume)Ordered By: Jennifer Bailey on 11-02-2024 Potassium (Unsp spec) [Mass/Vol] 4.8 mmol/L 3.3-5.1 [facility] Serum creatinine measurement (mass/volume)Ordered By: Jennifer Bailey on 11-02-2024 Creatinine [Mass/Vol] 1.77 mg/dL High 0.70-1.20 [facility] Serum glucose measurement (m ass/volume)Ordered By: Jennifer Bailey on 11-02-2024 Glucose [Mass/Vol] 127 mg/dL High 70-99 [facility] Serum or plasma calcium shannon urement (mass/volume)Ordered By: Jennifer Bailey on 11-02-2024 Calcium [Mass/Vol] 9.9 mg/dL 7.6-11.0 [facility] Serum or plasma urea nitroge n measurement (mass/volume)Ordered By: Jennifer Bailey on 11-02-2024 Urea nitrogen [Mass/Vol] 36 mg/dL High 4-19 [facility] Sodium levelOrdered By: Estiven Bailey on 11-02-2024 Sodium [Moles/Vol] 137 mmol/L 133-145 [facility] L/S Spine Min 4 Viewson L/S Spine Min 4 Views [facility] Imaging Services [address] [place] [address] L/S Spine Min 4 Views MR#: [id number] Acct: [id number] Name: CHRISTY FRANCIS Rep #: [id number] : 1950 F 74 From: Bryce Serrano MD PCP: Dr. Marielos Perla DO Status: REG CLI Study: L/S Spine Min 4 Views Date of Exam: 09/18/24 Exam# [id number] Ordering Dr: Rand Mckeon PROCEDURE: L/S SPINE MIN 4 VIEWS 09/18/2024 REASON FOR EXAM: PAIN, SCIATICA TECHNIQUE: Four views of the lumbar spine COMPARISON: None FINDINGS: There are 5 sax-flq-vlukvnv lumbar-type vertebral bodies. The pars are not [...] is likely degenerative. Reading Location: [facility] CC: [facility] [employer]-Sweetie Mckeon; Dr. Marielos Perla DO Hay Sorter: Signed [facility] Cardiology Visit Reporton Cardiology Visit Report [facility] [address] [place] [address] OFFICE VISIT Date of Service: 06/05/24 MR#: [id number] Acct: [id number] Name: CHRISTY FRANCIS Rep #: [id number] : 1950 Provider: JOHNATHON olivas Age/Sex: 74/F Location: [facility] Status: Signed HPI HPI History of Present [...] NIBP Intake Visit Reasons: 3 M FU Boat Officer Required: No Is patient in pain?: No [...] 10 mg tablet See Rx Instructions .Route 04/17/ 4 06/05/24 Rx .COMPLEX cholesterol #90 TABLETS [...] Mechanical loosening of prosthetic knee Atherosclerosis of [place] coronary artery of [place] heart without angina pectoris PAD (peripheral artery disease) HLD (hyperlipidemia) Type II diabetes mellitus Surgical History (Updated 06/05/24 @ 11:25 by Charlie Johnson NP, JOHNATHON) History of coronary artery bypass graft x 3 ( 02/27/19) History of prosthetic unicompartmental arthroplasty of left knee Family History Mother Heart disease So (more content not included)... [facility] Cardiology Visit Reporton Cardiology Visit Report [facility] [place] [address] OFFICE VISIT Date of Service: 03/09/24 MR#: [id number] Acct: [id number] Name: CHRISTY FRANCIS Rep #: [id number] : 1950 Provider: JOHNATHON loivas Age/Sex: 74/F Location: [facility] Status: Signed HPI HPI History of Present [...] Pulse Source NIBP Intake Visit Reasons: S/P [facility] 02/20 Boat Officer Required: No Is patient in pain?: No [...] Mechanical loosening of prosthetic knee Atherosclerosis of [place] coronary artery of [place] heart without angina pectoris PAD (peripheral artery [...] frequency: holidays/ (more content not included)... [facility] Basic Metabolic Profile (BMP )on 02-23-2024 BUN Normal 7-18 [facility] Comment on above: Result Comment: Canc elled via OM: Order cancelled - Patient discharged Performed By: #### L 501.080 #### [facility] [address] [place], [address] BUN/CRE Normal 10-20 [facility] Comment on above: Result Comment: Canc elled via OM: Order cancelled - Patient discharged Performed By: #### L 501.080 #### [facility] [address] [place], [address] CA,Total Normal 8.5-10.1 [facility] Comment on above: Result Comment: Canc elled via OM: Order cancelled - Patient discharged Performed By: #### L 501.080 #### [facility] [address] [place], [address] CL Normal 98-107 [facility] Comment on above: Result Comment: Canc elled via OM: Order cancelled - Patient discharged Performed By: #### L 501.080 #### [facility] [address] [place], [address] CO2 Normal 21.0-32.0 [facility] Comment on above: Result Comment: Canc elled via OM: Order cancelled - Patient discharged Performed By: #### L 501.080 #### [facility] [address] [place], [address] CREAT,SERUM Normal 0.55-1.02 [facility] Comment on above: Result Comment: Canc elled via OM: Order cancelled - Patient discharged Performed By: #### L 501.080 #### [facility] [address] [place], [address] EST GFR Normal >60 [facility] Comment on above: Result Comment: Canc elled via OM: Order cancelled - Patient discharged Performed By: #### L 501.080 #### [facility] [address] [place], [address] EST GFR - AA Normal >60 [facility] Comment on above: Result Comment: Canc elled via OM: Order cancelled - Patient discharged Performed By: #### L 501.080 #### [facility] [address] [place], [address] GAP Normal 5-15 [facility] Comment on above: Result Comment: Canc elled via OM: Order cancelled - Patient discharged Performed By: #### L 501.080 #### [facility] [address] [place], [address] GLU Normal 74-106 [facility] Comment on above: Result Comment: Canc elled via OM: Order cancelled - Patient discharged Performed By: #### L 501.080 #### [facility] [address] [place], [address] Potassium Normal 3.5-5.1 [facility] Comment on above: Result Comment: Canc elled via OM: Order cancelled - Patient discharged Performed By: #### L 501.080 #### [facility] [address] [place], [address] Basic Metabolic Profile (BMP) Normal 136-145 [facility] Comment on above: Result Comment: Canc elled via OM: Order cancelled - Patient discharged Performed By: #### L 501.080 #### [facility] [address] [place], [address] CBC W/Diff, Automatedon 11-0 Absolute Neut Normal 2.0-7.7 [facility] Comment on above: Result Comment: Canc elled via OM: Order cancelled - Patient discharged Performed By: #### L 501.080 #### [facility] [address] [place], [address] HCT Normal 37-47 [facility] Comment on above: Result Comment: Canc elled via OM: Order cancelled - Patient discharged Performed By: #### L 501.080 #### [facility] [address] [place], [address] HGB Normal 12.0-15.0 [facility] Comment on above: Result Comment: Canc elled via OM: Order cancelled - Patient discharged Performed By: #### L 501.080 #### [facility] [address] [place], [address] MCH Normal 27.0-32.0 [facility] Comment on above: Result Comment: Canc elled via OM: Order cancelled - Patient discharged Performed By: #### L 501.080 #### [facility] [address] [place], [address] MCHC Normal 32-36 [facility] Comment on above: Result Comment: Canc elled via OM: Order cancelled - Patient discharged Performed By: #### L 501.080 #### [facility] [address] [place], [address] MCV Normal 81-99 [facility] Comment on above: Result Comment: Canc elled via OM: Order cancelled - Patient discharged Performed By: #### L 501.080 #### [facility] [address] [place], [address] NEUT% Normal 47-70 [facility] Comment on above: Result Comment: Canc elled via OM: Order cancelled - Patient discharged Performed By: #### L 501.080 #### [facility] [address] [place], [address] PLT Normal 150-450 [facility] Comment on above: Result Comment: Canc elled via OM: Order cancelled - Patient discharged Performed By: #### L 501.080 #### [facility] [address] [place], [address] RBC Normal 4.2-5.4 [facility] Comment on above: Result Comment: Canc elled via OM: Order cancelled - Patient discharged Performed By: #### L 501.080 #### [facility] [address] [place], [address] RDW CV Normal 11.6-14.6 [facility] Comment on above: Result Comment: Canc elled via OM: Order cancelled - Patient discharged Performed By: #### L 501.080 #### [facility] [address] [place], [address] RDW SD Normal 35.1-43.9 [facility] Comment on above: Result Comment: Canc elled via OM: Order cancelled - Patient discharged Performed By: #### L 501.080 #### [facility] [address] [place], [address] WBC Normal 4.4-11.0 [facility] Comment on above: Result Comment: Canc elled via OM: Order cancelled - Patient discharged Performed By: #### L 501.080 #### [facility] [address] [place], [address] Basic Metabolic Profile (BMP )on 02-22-2024 BUN Normal 7-18 [facility] Comment on above: Result Comment: Canc elled via OM: Order cancelled - Patient discharged Performed By: #### L 502.0250, L500.4100, L500.4050, L100.0100 #### [facility] [address] [place], [address] BUN/CRE Normal 10-20 [facility] Comment on above: Result Comment: Canc elled via OM: Order cancelled - Patient discharged Performed By: #### L 502.0250, L500.4100, L500.4050, L100.0100 #### [facility] [address] [place], [address] CA,Total Normal 8.5-10.1 [facility] Comment on above: Result Comment: Canc elled via OM: Order cancelled - Patient discharged Performed By: #### L 502.0250, L500.4100, L500.4050, L100.0100 #### [facility] [address] [place], [address] CL Normal 98-107 [facility] Comment on above: Result Comment: Canc elled via OM: Order cancelled - Patient discharged Performed By: #### L 502.0250, L500.4100, L500.4050, L100.0100 #### [facility] [address] [place], [address] CO2 Normal 21.0-32.0 [facility] Comment on above: Result Comment: Canc elled via OM: Order cancelled - Patient discharged Performed By: #### L 502.0250, L500.4100, L500.4050, L100.0100 #### [facility] [address] [place], [address] CREAT,SERUM Normal 0.55-1.02 [facility] Comment on above: Result Comment: Canc elled via OM: Order cancelled - Patient discharged Performed By: #### L 502.0250, L500.4100, L500.4050, L100.0100 #### [facility] [address] [place], [address] EST GFR Normal >60 [facility] Comment on above: Result Comment: Canc elled via OM: Order cancelled - Patient discharged Performed By: #### L 502.0250, L500.4100, L500.4050, L100.0100 #### [facility] [address] [place], [address] EST GFR - AA Normal >60 [facility] Comment on above: Result Comment: Canc elled via OM: Order cancelled - Patient discharged Performed By: #### L 502.0250, L500.4100, L500.4050, L100.0100 #### [facility] [address] [place], [address] GAP Normal 5-15 [facility] Comment on above: Result Comment: Canc elled via OM: Order cancelled - Patient discharged Performed By: #### L 502.0250, L500.4100, L500.4050, L100.0100 #### [facility] [address] [place], [address] GLU Normal 74-106 [facility] Comment on above: Result Comment: Canc elled via OM: Order cancelled - Patient discharged Performed By: #### L 502.0250, L500.4100, L500.4050, L100.0100 #### [facility] [address] [place], [address] Potassium Normal 3.5-5.1 [facility] Comment on above: Result Comment: Canc elled via OM: Order cancelled - Patient discharged Performed By: #### L 502.0250, L500.4100, L500.4050, L100.0100 #### [facility] [address] [place], [address] Basic Metabolic Profile (BMP) Normal 136-145 [facility] Comment on above: Result Comment: Canc elled via OM: Order cancelled - Patient discharged Performed By: #### L 502.0250, L500.4100, L500.4050, L100.0100 #### [facility] [address] [place], [address] CBC W/Diff, Automatedon 11-0 Absolute Neut Normal 2.0-7.7 [facility] Comment on above: Result Comment: Canc elled via OM: Order cancelled - Patient discharged Performed By: #### L 502.0250, L500.4100, L500.4050, L100.0100 #### [facility] [address] [place], [address] HCT Normal 37-47 [facility] Comment on above: Result Comment: Canc elled via OM: Order cancelled - Patient discharged Performed By: #### L 502.0250, L500.4100, L500.4050, L100.0100 #### [facility] [address] [place], [address] HGB Normal 12.0-15.0 [facility] Comment on above: Result Comment: Canc elled via OM: Order cancelled - Patient discharged Performed By: #### L 502.0250, L500.4100, L500.4050, L100.0100 #### [facility] [address] [place], [address] MCH Normal 27.0-32.0 [facility] Comment on above: Result Comment: Canc elled via OM: Order cancelled - Patient discharged Performed By: #### L 502.0250, L500.4100, L500.4050, L100.0100 #### [facility] [address] [place], [address] MCHC Normal 32-36 [facility] Comment on above: Result Comment: Canc elled via OM: Order cancelled - Patient discharged Performed By: #### L 502.0250, L500.4100, L500.4050, L100.0100 #### [facility] [address] [place], [address] MCV Normal 81-99 [facility] Comment on above: Result Comment: Canc elled via OM: Order cancelled - Patient discharged Performed By: #### L 502.0250, L500.4100, L500.4050, L100.0100 #### [facility] [address] [place], [address] NEUT% Normal 47-70 [facility] Comment on above: Result Comment: Canc elled via OM: Order cancelled - Patient discharged Performed By: #### L 502.0250, L500.4100, L500.4050, L100.0100 #### [facility] [address] [place], [address] PLT Normal 150-450 [facility] Comment on above: Result Comment: Canc elled via OM: Order cancelled - Patient discharged Performed By: #### L 502.0250, L500.4100, L500.4050, L100.0100 #### [facility] [address] [place], [address] RBC Normal 4.2-5.4 [facility] Comment on above: Result Comment: Canc elled via OM: Order cancelled - Patient discharged Performed By: #### L 502.0250, L500.4100, L500.4050, L100.0100 #### [facility] [address] [place], [address] RDW CV Normal 11.6-14.6 [facility] Comment on above: Result Comment: Canc elled via OM: Order cancelled - Patient discharged Performed By: #### L 502.0250, L500.4100, L500.4050, L100.0100 #### [facility] [address] [place], [address] RDW SD Normal 35.1-43.9 [facility] Comment on above: Result Comment: Canc elled via OM: Order cancelled - Patient discharged Performed By: #### L 502.0250, L500.4100, L500.4050, L100.0100 #### [facility] [address] [place], [address] WBC Normal 4.4-11.0 [facility] Comment on above: Result Comment: Canc elled via OM: Order cancelled - Patient discharged Performed By: #### L 502.0250, L500.4100, L500.4050, L100.0100 #### [facility] [address] [place], [address] 12 Lead EKGon 02-21-2024 12 Lead EKG [facility] [address] [place] [address] 12 Lead EKG 02/19/242009 MR#: [id number] Acct: [id number] Name: CHRISTY FRANCIS Rep #: [id number] : 1950 74 From: Jos Chandra MD Attending Dr: Dr. Kaushik Castro MD Status: DIS BRIAN Ordering Dr: Grant Castelan DO Date: 02/21/24 Location: [facility] Sex: F C Admitted: 02/19/24 Test Reason [...] DATA IS UNCONFIRMED Confirmed by Jos Chandra ([id number]), production editor SHILPA VALENZUELA ([id number]) on 02/22/2024 9:27:09 AM Referred By: Confirmed By: Jos Chandra 02/22/24 0927 Date Jos Chandra MD CC: Dr. Kaushik Castro MD; Dr. Grant Castelan DO; Dr. Marielos Perla DO Signed Normal [facility] Basic Metabolic Profile (BMP )on 02-21-2024 BUN/CRE 17.9 RATIO Normal 02-05 [facility] Comment on above: Performed By: #### L 502.0250, L500.4100, L500.4050, L100.0100 #### [facility] [address] [place], [address] CA,Total 8.9 mg/dL Normal 8.5-10.1 [facility] Comment on above: Performed By: #### L 502.0250, L500.4100, L500.4050, L100.0100 #### [facility] [address] [place], [address] Chloride [Moles/Vol] 107 mmol/L Normal 98-107 [facility] Comment on above: Performed By: #### L 502.0250, L500.4100, L500.4050, L100.0100 #### [facility] [address] [place], [address] CO2 [Moles/Vol] 25.0 mmol/L Normal 21.0-32.0 [facility] Comment on above: Performed By: #### L 502.0250, L500.4100, L500.4050, L100.0100 #### [facility] [address] [place], [address] Creatinine [Mass/Vol] 1.17 mg/dL High 0.55-1.02 [facility] Comment on above: Result Comment: The validity of the calculated GFR GFRAA in patients over 70 years has not been determined. Clinical correlation is essential. Performed By: #### L 502.0250, L500.4100, L500.4050, L100.0100 #### [facility] [address] [place], [address] ECRCL 42.98 ml/min Normal [facility] Comment on above: Performed By: #### L 502.0250, L500.4100, L500.4050, L100.0100 #### [facility] [address] [place], [address] EST GFR - AA 58 mL/min Low >60 [facility] Comment on above: Result Comment: Afri can Argentine GFR Calc Performed By: #### L 502.0250, L500.4100, L500.4050, L100.0100 #### [facility] [address] [place], [address] GAP 7 Normal 5-15 [facility] Comment on above: Performed By: #### L 502.0250, L500.4100, L500.4050, L100.0100 #### [facility] [address] [place], [address] GFR/1.73 sq M.predicted among non-blacks MDRD (S/P/Bld) [Vol rate/Area] 48 mL/min/{1.73_m2} Low >60 [facility] Comment on above: Result Comment: Non- GFR Calc Performed By: #### L 502.0250, L500.4100, L500.4050, L100.0100 #### [facility] [address] [place], [address] Glucose [Mass/Vol] 131 mg/dL High 74-106 [facility] Comment on above: Result Comment: Fast ing Glucose result greater than or equal to 126 mg/dL suggests DIABETES MELLITUS per A.D.A. criteria. Performed By: #### L 502.0250, L500.4100, L500.4050, L100.0100 #### [facility] [address] [place], [address] Potassium [Moles/Vol] 3.6 mmol/L Normal 3.5-5.1 [facility] Comment on above: Performed By: #### L 502.0250, L500.4100, L500.4050, L100.0100 #### [facility] [address] [place], [address] Sodium [Moles/Vol] 138 mmol/L Normal 136-145 [facility] Comment on above: Performed By: #### L 502.0250, L500.4100, L500.4050, L100.0100 #### [facility] [address] [place], [address] Urea nitrogen [Mass/Vol] 21 mg/dL High 7-18 [facility] Comment on above: Performed By: #### L 502.0250, L500.4100, L500.4050, L100.0100 #### [facility] [address] [place], [address] Bedside Glucoseon 02-21-2024 FINGERSTICK GLU 204 mg/dL High 74-106 [facility] Comment on above: Result Comment: GENARO GEMENT OF PATIENT CARE PER NURSING PROTOCOL Performed By: #### L 501.080 #### [facility] [address] [place], [address] FINGERSTICK GLU 180 mg/dL High 74-106 [facility] Comment on above: Result Comment: GENARO GEMENT OF PATIENT CARE PER NURSING PROTOCOL Performed By: #### L 501.080 #### [facility] [address] [place], [address] CBC W/Diff, Automatedon 11- Absolute Lymph 1.89 X10 3/uL Normal 0.83-4.51 [facility] Comment on above: Performed By: #### L 100.0100, L501.5200, L500.2500, L501.2300 #### [facility] [address] [place], [address] Absolute Neut 5.7 X10 3/uL Normal 2.0-7.7 [facility] Comment on above: Performed By: #### L 100.0100, L501.5200, L500.2500, L501.2300 #### [facility] [address] [place], [address] Basophils/100 WBC (Bld) 0.7 % Normal 0-1 [facility] Comment on above: Performed By: #### L 100.0100, L501.5200, L500.2500, L501.2300 #### [facility] [address] [place], [address] Eosinophils/100 WBC (Bld) 14.5 % High 0-5 [facility] Comment on above: Performed By: #### L 100.0100, L501.5200, L500.2500, L501.2300 #### [facility] [address] [place], [address] Erythrocyte distribution width (RBC) [Ratio] 15.1 % High 11.6-14.6 [facility] Comment on above: Performed By: #### L 100.0100, L501.5200, L500.2500, L501.2300 #### [facility] [address] [place], [address] Hematocrit (Bld) [Volume fraction] 42.2 % Normal 37-47 [facility] Comment on above: Performed By: #### L 100.0100, L501.5200, L500.2500, L501.2300 #### [facility] [address] [place], [address] Hemoglobin (Bld) [Mass/Vol] 13.8 g/dL Normal 12.0-15.0 [facility] Comment on above: Performed By: #### L 100.0100, L501.5200, L500.2500, L501.2300 #### [facility] [address] [place], [address] IG% 0.300 Normal 0.0-0.9 [facility] Comment on above: Result Comment: IG% - Immature Granulocytes (promyelocytes, myelocytes and metamyelocytes) > 1% indicates that a LEFT SHIFT is Present. Performed By: #### L 100.0100, L501.5200, L500.2500, L501.2300 #### [facility] [address] [place], [address] Lymphocytes/100 WBC (Bld) 18.9 % Low 19-41 [facility] Comment on above: Performed By: #### L 100.0100, L501.5200, L500.2500, L501.2300 #### [facility] [address] [place], [address] MCH (RBC) [Entitic mass] 30.1 pg Normal 27.0-32.0 [facility] Comment on above: Performed By: #### L 100.0100, L501.5200, L500.2500, L501.2300 #### [facility] [address] [place], [address] MCHC (RBC) [Mass/Vol] 32.7 g/dL Normal 32-36 [facility] Comment on above: Performed By: #### L 100.0100, L501.5200, L500.2500, L501.2300 #### [facility] [address] [place], [address] MCV (RBC) [Entitic vol] 91.9 fL Normal 81-99 [facility] Comment on above: Performed By: #### L 100.0100, L501.5200, L500.2500, L501.2300 #### [facility] [address] [place], [address] Monocytes/100 WBC (Bld) 8.4 % Normal 0-10 [facility] Comment on above: Performed By: #### L 100.0100, L501.5200, L500.2500, L501.2300 #### [facility] [address] [place], [address] Neutrophils/100 WBC (Bld) 57.2 % Normal 47-70 [facility] Comment on above: Performed By: #### L 100.0100, L501.5200, L500.2500, L501.2300 #### [facility] [address] [place], [address] Nucleated RBC (Bld) [#/Vol] 0 10*3/uL Normal 0-5 [facility] Comment on above: Performed By: #### L 100.0100, L501.5200, L500.2500, L501.2300 #### [facility] [address] [place], [address] Platelet mean volume (Bld) [Entitic vol] 11.1 fL Normal 6.2-12.0 [facility] Comment on above: Performed By: #### L 100.0100, L501.5200, L500.2500, L501.2300 #### [facility] [address] [place], [address] Platelets (Bld) [#/Vol] 260 10*3/uL Normal 150-450 [facility] Comment on above: Performed By: #### L 100.0100, L501.5200, L500.2500, L501.2300 #### [facility] [address] [place], [address] RBC (Bld) [#/Vol] 4.59 10*6/uL Normal 4.2-5.4 [facility] Comment on above: Performed By: #### L 100.0100, L501.5200, L500.2500, L501.2300 #### [facility] [address] [place], [address] RDW SD 50.9 fl High 35.1-43.9 [facility] Comment on above: Performed By: #### L 100.0100, L501.5200, L500.2500, L501.2300 #### [facility] [address] [place], [address] WBC (Bld) [#/Vol] 10.0 10*3/uL Normal 4.4-11.0 [facility] Comment on above: Performed By: #### L 100.0100, L501.5200, L500.2500, L501.2300 #### [facility] [address] [place], [address] Magnesiumon 02-21-2024 Magnesium [Mass/Vol] 2.0 mg/dL Normal 1.6-2.6 [facility] Comment on above: Performed By: #### L 502.0250, L500.4100, L500.4050, L100.0100 #### [facility] [address] [place], [address] Phosphoruson 02-21-2024 Phosphate [Mass/Vol] 4.4 mg/dL Normal 2.5-4.9 [facility] Comment on above: Performed By: #### L 502.0250, L500.4100, L500.4050, L100.0100 #### [facility] [address] [place] [place], [address] Stress Reporton 02-21-2024 Stress Report [facility] [address] [place] [address] MR#: [id number] Acct: [id number] Name: CHRISTY FRANCIS Rep #: [id number] : 1950 74 From: Jorge Anderson MD [...] DO Date Dictated: 02/21/241041 Date Transcribed: 02/21/241041 Hay Sorter: [place] Signed Normal [facility] BNP,B-Type NATRIURETIC PEPTI Regino 02-20-2024 Natriuretic peptide B (Bld) [Mass/Vol] 20.3 pg/mL Normal 0-100 [facility] Comment on above: Performed By: #### L 503.6620 #### [facility] [address] [place], [address] Basic Metabolic Profile (BMP )on 02-20-2024 BUN/CRE 16.1 RATIO Normal 10-20 [facility] Comment on above: Performed By: #### L 501.080 #### [facility] [address] [place], [address] CA,Total 8.4 mg/dL Low 8.5-10.1 [facility] Comment on above: Performed By: #### L 501.080 #### [facility] [address] [place], [address] Chloride [Moles/Vol] 107 mmol/L Normal 98-107 [facility] Comment on above: Performed By: #### L 501.080 #### [facility] [address] [place], [address] CO2 [Moles/Vol] 24.0 mmol/L Normal 21.0-32.0 [facility] Comment on above: Performed By: #### L 501.080 #### [facility] [address] [place], [address] Creatinine [Mass/Vol] 1.37 mg/dL High 0.55-1.02 [facility] Comment on above: Result Comment: The validity of the calculated GFR GFRAA in patients over 70 years has not been determined. Clinical correlation is essential. Performed By: #### L 501.080 #### [facility] [address] [place], [address] ECRCL 36.71 ml/min Normal [facility] Comment on above: Performed By: #### L 501.080 #### [facility] [address] [place], [address] EST GFR - AA 49 mL/min Low >60 [facility] Comment on above: Result Comment: Afri can Argentine GFR Calc Performed By: #### L 501.080 #### [facility] [address] [place], [address] GAP 6 Normal 5-15 [facility] Comment on above: Performed By: #### L 501.080 #### [facility] [address] [place], [address] GFR/1.73 sq M.predicted among non-blacks MDRD (S/P/Bld) [Vol rate/Area] 40 mL/min/{1.73_m2} Low >60 [facility] Comment on above: Result Comment: Non- GFR Calc Performed By: #### L 501.080 #### [facility] [address] [place], [address] Glucose [Mass/Vol] 358 mg/dL High 74-106 [facility] Comment on above: Result Comment: Gluc ose result greater than or equal to 200 mg/dL suggests DIABETES MELLITUS per A.D.A. criteria. Performed By: #### L 501.080 #### [facility] [address] [place], [address] Potassium [Moles/Vol] 3.9 mmol/L Normal 3.5-5.1 [facility] Comment on above: Performed By: #### L 501.080 #### [facility] [address] [place], [address] Sodium [Moles/Vol] 136 mmol/L Normal 136-145 [facility] Comment on above: Performed By: #### L 501.080 #### [facility] [address] [place], [address] Urea nitrogen [Mass/Vol] 22 mg/dL High 7-18 [facility] Comment on above: Performed By: #### L 501.080 #### [facility] [address] [place], [address] Bedside Glucoseon 02-20-2024 FINGERSTICK GLU 129 mg/dL High 74-106 [facility] Comment on above: Result Comment: GENARO ALTON OF PATIENT CARE PER NURSING PROTOCOL Performed By: #### L 501.080 #### [facility] [address] [place], [address] FINGERSTICK GLU 178 mg/dL High 74-106 [facility] Comment on above: Result Comment: GENARO GEMENT OF PATIENT CARE PER NURSING PROTOCOL Performed By: #### L 502.0250, L500.4100, L500.4050, L100.0100 #### [facility] [address] [place], [address] FINGERSTICK GLU 366 mg/dL High 74-106 [facility] Comment on above: Result Comment: GENARO GEMENT OF PATIENT CARE PER NURSING PROTOCOL Performed By: #### L 501.080 #### [facility] [address] [place], [address] FINGERSTICK GLU 391 mg/dL High 74-106 [facility] Comment on above: Result Comment: GENARO GEMENT OF PATIENT CARE PER NURSING PROTOCOL Performed By: #### L 501.080 #### [facility] [address] [place], [address] Consultation - Cardiologyon 02-20-2024 Consultation - Cardiology [facility] Medical Records Department [address] [place] [address] Consultation - Cardiology 02/20/24 1012 MR#: [id number] Acct: [id number] Name: CHRISTY FRANCIS Rep #: [id number] : 1950 74 From: Jorge Anderson MD PCP: Dr. Marielos Perla, DO Status:ADM BRIAN Location: [place] [address] Assessment Plan Assessment/Plan (1) Exertional dyspnea: PLAN: [...] that cardiology should see during this admission. [facility] Medical History Palpitations Right rotator cuff tear Trigger finger of both hands Carpal tunnel syndrome on both sides FHx: cholecystectomy History of left heart catheterization (LHC) ( 06/03/21) Essential hypertension Mechanical loosening of prosthetic knee Atherosclerosis of [place] coronary artery of [place] heart without angina pectoris PAD (peripheral artery disease) HLD (hyperlipidemia) Type II diabetes mellitus Home Medications ???Medication ???Instructions ???Recorded ???Last Taken ???Type aspirin 81 mg tablet,delayed 81 mg PO DAILY [facility] 12/15/13 06/03/21 History release nitroglycerin 0.4 mg [...] 11/05/23 11:3 (more content not included)... [facility] Echo Completeon 02-20-2024 Echo Complete [facility] Cardi[facility] Services [address] [place] [address] Echo Complete 02/21/24 1022 MR#: [id number] Acct: [id number] Name: CHRISTY FRANCIS Rep #: [id number] : 1950 74 From: Jorge Anderson MD Attending Dr: Dr. Kaushik Castro MD Status: ADM BRIAN Ordering Dr: Jorge Anderson MD Date: 02/20/24 Location: [facility] Sex: F C Admitted: 02/19/24 Reason For [...] MD; Dr. Kaushik Castro MD; Dr. Marielos Perla DO Date Dictated: 02/21/24 1022 Date Transcribed: 02/21/24 1131 Hay Sorter: Signed Normal [facility] Hemoglobin A1con 02-20-2024 HbA1c (Bld) [Mass fraction] 9.8 % High 3.8-5.6 [facility] Comment on above: Result Comment: Norm al < 5.7 % Prediabetic 5.7 - 6.4 % Diabetic >or= 6.5 % Please note range changes. Performed By: #### L 501.080 #### [facility] [address] [place], [place], [address] Thyroid Stim Hormone (TSH)on 02-20-2024 TSH 0.994 uIU/mL Normal 0.358-3.740 [facility] Comment on above: Performed By: #### L 501.080 #### [facility] [address] [place], [id number] 12 Lead EKGon 02-19-2024 12 Lead EKG [facility] Cardiovascular Services [address] [place] [id number] 12 Lead EKG 02/21/24 0552 MR#: [id number] Acct: [id number] Name: CHRISTY FRANCIS Rep #: [id number] : 1950 74 From: Jos Chandra MD Attending Dr: Dr. Kaushik Castro MD Status: DIS BRIAN Ordering Dr: Grant Castelan DO Date: 02/19/24 Location: [facility] Sex: F C Admitted: 02/19/24 Test Reason [...] abnormality Abnormal ECG Confirmed by Jos Chandra ([id number]), production editor SHILPA VALENZUELA ([id number]) on 02/22/2024 9:25:47 AM Referred By: Confirmed By: Jos Chandra 02/22/24924 Date Jos Chandra MD CC: Dr. Kaushik Castro MD; Dr. Grant Castelan DO; Dr. Marielos Perla DO Signed Normal [facility] 12 Lead EKG [facility] Cardiovascular Services [address] [place] [address] 12 Lead EKG 02/19/24 1412 MR#: [id number] Acct: [id number] Name: GALILEOCHRISTY S Rep #: [id number] : 1950 74 From: Jorge Anderson MD Attending Dr: Dr. Kaushik Castro MD Status: ADM BRIAN Ordering Dr: Moris Watson MD Date: 02/19/24 Location: [facility] Sex: F C Admitted: 02/19/24 Test Reason : CP Blood Pressure : */* mmHG Vent. Rate : 111 BPM Atrial Rate : 111 BPM P-R Int : 142 ms QRS Dur : 74 ms QT Int : 350 ms P-R-T Axes : 50 23 95 degrees QTcB Int : 476 ms Sinus tachycardia Nonspecific ST and T wave abnormality Abnormal ECG Confirmed by MONICA ROMERO, JORGE ([id number]), production editor SHILPA VALENZUELA ([id number]) on 02/21/2024 9:44:03 AM Referred By: Confirmed By: JORGE ANDERSON MD 02/21/24 0944 Date Jorge Anderson MD CC: Dr. Kaushik Castro MD; Dr. Moris Watson MD; Dr. Marielos Perla, Signed Normal [facility] Basic Metabolic Profile (BMP )on 02-19-2024 BUN/CRE 11.9 RATIO Normal 10-20 [facility] Comment on above: Order Comment: 1Y Performed By: #### L 502.0250, L500.4100, L500.4050, L100.0100 #### [facility] [address] [place], [address] CA,Total 9.2 mg/dL Normal 8.5-10.1 [facility] Comment on above: Order Comment: 1Y Performed By: #### L 502.0250, L500.4100, L500.4050, L100.0100 #### [facility] [address] [place], [address] Chloride [Moles/Vol] 104 mmol/L Normal 98-107 [facility] Comment on above: Order Comment: 1Y Performed By: #### L 502.0250, L500.4100, L500.4050, L100.0100 #### [facility] [address] [place], [address] CO2 [Moles/Vol] 28.0 mmol/L Normal 21.0-32.0 [facility] Comment on above: Order Comment: 1Y Performed By: #### L 502.0250, L500.4100, L500.4050, L100.0100 #### [facility] [address] [place], [address] Creatinine [Mass/Vol] 1.60 mg/dL High 0.55-1.02 [facility] Comment on above: Order Comment: 1Y Result Comment: The validity of the calculated GFR GFRAA in patients over 70 years has not been determined. Clinical correlation is essential. Performed By: #### L 502.0250, L500.4100, L500.4050, L100.0100 #### [facility] [address] [place], [address] ECRCL 31.34 ml/min Normal [facility] Comment on above: Order Comment: 1Y Performed By: #### L 502.0250, L500.4100, L500.4050, L100.0100 #### [facility] [address] [place], [address] EST GFR - AA 41 mL/min Low >60 [facility] Comment on above: Order Comment: 1Y Result Comment: Afri can Argentine GFR Calc Performed By: #### L 502.0250, L500.4100, L500.4050, L100.0100 #### [facility] [address] [place], [address] GAP 7 Normal 5-15 [facility] Comment on above: Order Comment: 1Y Performed By: #### L 502.0250, L500.4100, L500.4050, L100.0100 #### [facility] [address] [place], [address] GFR/1.73 sq M.predicted among non-blacks MDRD (S/P/Bld) [Vol rate/Area] 34 mL/min/{1.73_m2} Low >60 [facility] Comment on above: Order Comment: 1Y Result Comment: Non- GFR Calc Performed By: #### L 502.0250, L500.4100, L500.4050, L100.0100 #### [facility] [address] [place], [address] Glucose [Mass/Vol] 203 mg/dL High 74-106 [facility] Comment on above: Order Comment: 1Y Result Comment: Gluc ose result greater than or equal to 200 mg/dL suggests DIABETES MELLITUS per A.D.A. criteria. Performed By: #### L 502.0250, L500.4100, L500.4050, L100.0100 #### [facility] [address] [place], [address] Potassium [Moles/Vol] 3.8 mmol/L Normal 3.5-5.1 [facility] Comment on above: Order Comment: 1Y Performed By: #### L 502.0250, L500.4100, L500.4050, L100.0100 #### [facility] [address] [place], [address] Sodium [Moles/Vol] 139 mmol/L Normal 136-145 [facility] Comment on above: Order Comment: 1Y Performed By: #### L 502.0250, L500.4100, L500.4050, L100.0100 #### [facility] [address] [place], [address] Urea nitrogen [Mass/Vol] 19 mg/dL High 7-18 [facility] Comment on above: Order Comment: 1Y Performed By: #### L 502.0250, L500.4100, L500.4050, L100.0100 #### [facility] [address] [place], [address] Bedside Glucoseon 02-19-2024 FINGERSTICK GLU 309 mg/dL High 74-106 [facility] Comment on above: Result Comment: GENARO DANG OF PATIENT CARE PER NURSING PROTOCOL Performed By: #### L 501.080 #### [facility] [address] [place], [address] CBC W/Diff, Automatedon 11- Absolute Lymph 1.79 X10 3/uL Normal 0.83-4.51 [facility] Comment on above: Performed By: #### L 502.0250, L500.4100, L500.4050, L100.0100 #### [facility] [address] [place], [address] Absolute Neut 7.8 X10 3/uL High 2.0-7.7 [facility] Comment on above: Performed By: #### L 502.0250, L500.4100, L500.4050, L100.0100 #### [facility] [address] [place], [address] Basophils/100 WBC (Bld) 0.6 % Normal 0-1 [facility] Comment on above: Performed By: #### L 502.0250, L500.4100, L500.4050, L100.0100 #### [facility] [address] [place], [address] Eosinophils/100 WBC (Bld) 7.8 % High 0-5 [facility] Comment on above: Performed By: #### L 502.0250, L500.4100, L500.4050, L100.0100 #### [facility] [address] [place], [address] Erythrocyte distribution width (RBC) [Ratio] 15.4 % High 11.6-14.6 [facility] Comment on above: Performed By: #### L 502.0250, L500.4100, L500.4050, L100.0100 #### [facility] [address] [place], [address] Hematocrit (Bld) [Volume fraction] 44.1 % Normal 37-47 [facility] Comment on above: Performed By: #### L 502.0250, L500.4100, L500.4050, L100.0100 #### [facility] [address], [address] Hemoglobin (Bld) [Mass/Vol] 14.8 g/dL Normal 12.0-15.0 [facility] Comment on above: Performed By: #### L 502.0250, L500.4100, L500.4050, L100.0100 #### [facility] [address], [address] IG% 0.400 Normal 0.0-0.9 [facility] Comment on above: Result Comment: IG% - Immature Granulocytes (promyelocytes, myelocytes and metamyelocytes) > 1% indicates that a LEFT SHIFT is Present. Performed By: #### L 502.0250, L500.4100, L500.4050, L100.0100 #### [facility] [address] [place], [address] Lymphocytes/100 WBC (Bld) 15.8 % Low 19-41 [facility] Comment on above: Performed By: #### L 502.0250, L500.4100, L500.4050, L100.0100 #### [facility] [address] [place], [address] MCH (RBC) [Entitic mass] 30.6 pg Normal 27.0-32.0 [facility] Comment on above: Performed By: #### L 502.0250, L500.4100, L500.4050, L100.0100 #### [facility] [address] [place], [address] MCHC (RBC) [Mass/Vol] 33.6 g/dL Normal 32-36 [facility] Comment on above: Performed By: #### L 502.0250, L500.4100, L500.4050, L100.0100 #### [facility] [address] [place], [address] MCV (RBC) [Entitic vol] 91.3 fL Normal 81-99 [facility] Comment on above: Performed By: #### L 502.0250, L500.4100, L500.4050, L100.0100 #### [facility] [address] [place], [address] Monocytes/100 WBC (Bld) 6.8 % Normal 0-10 [facility] Comment on above: Performed By: #### L 502.0250, L500.4100, L500.4050, L100.0100 #### [facility] [address] [place], [address] Neutrophils/100 WBC (Bld) 68.6 % Normal 47-70 [facility] Comment on above: Performed By: #### L 502.0250, L500.4100, L500.4050, L100.0100 #### [facility] [address] [place], [address] Nucleated RBC (Bld) [#/Vol] 0 10*3/uL Normal 0-5 [facility] Comment on above: Performed By: #### L 502.0250, L500.4100, L500.4050, L100.0100 #### [facility] [address] [place], [address] Platelet mean volume (Bld) [Entitic vol] 11.0 fL Normal 6.2-12.0 [facility] Comment on above: Performed By: #### L 502.0250, L500.4100, L500.4050, L100.0100 #### [facility] [address] [place], [address] Platelets (Bld) [#/Vol] 276 10*3/uL Normal 150-450 [facility] Comment on above: Performed By: #### L 502.0250, L500.4100, L500.4050, L100.0100 #### [facility] [address] [place], [address] RBC (Bld) [#/Vol] 4.83 10*6/uL Normal 4.2-5.4 [facility] Comment on above: Performed By: #### L 502.0250, L500.4100, L500.4050, L100.0100 #### [facility] [address] [place], [address] RDW SD 51.3 fl High 35.1-43.9 [facility] Comment on above: Performed By: #### L 502.0250, L500.4100, L500.4050, L100.0100 #### [facility] [address] [place], [address] WBC (Bld) [#/Vol] 11.3 10*3/uL High 4.4-11.0 [facility] Comment on above: Performed By: #### L 502.0250, L500.4100, L500.4050, L100.0100 #### [facility] [address] [place], [address] CTA Chest W/WO Contraston CTA Chest W/WO Contrast [facility] Imaging Services [address] [place] [address] CTA Chest W/WO Contrast MR#: [id number] Acct: [id number] Name: CHRISTY FRANCIS Rep #: [id number] : 1950 F 74 From: Stoney Gatica MD PCP: Dr. Marielos Perla DO Status: ADM BRIAN Study: CTA Chest W/WO Contrast Date of Exam: 02/19/24 Exam# [id number] Ordering Dr: Grant Castelan DO [id number] STUDY: CTA CHEST REASON FOR EXAM: Female, [...] Signed: Stoney Gatica MD at 22:28 EDT , CC: Dr. Grant Castelan DO; Dr. Marielos Perla DO Hay Sorter: Signed Normal [facility] Chest 1 View (Portable)on Chest 1 View (Portable) [facility] Imaging Services [address] [place] [address] Chest 1 View (Portable) MR#: [id number] Acct: [id number] Name: CHRISTY FRANCIS Rep #: [id number] : 1950 F 74 From: Cirilo Ybarra MD PCP: Dr. Marielos Perla DO Status: PRE ER Study: Chest 1 View (Portable) Date of Exam: 02/19/24 Exam# [id number] Ordering Dr: Moris Watson MD [id number] EXAM: XR CHEST, 1 VIEW CLINICAL INDICATION: [...] Signed: Cirilo Ybarra MD at 15:14 EDT Reading Location ID and State: [facility] Tel , Service support , CC: Dr. Moris Watson MD; Dr. Marielos Perla DO Hay Sorter: Signed Normal [facility] D-Dimer Quantitative (DVT/PE )on 02-19-2024 D-DIMER QUANT 1.08 FEU/ug/m Invalid Interpretation Code 0.27-0.49 [facility] Comment on above: Result Comment: D-Di nubia ELEVATED (>0.49): Additional studies and clinical assessments are indicated to conclude diagnosis of: Deep Vein Thrombosis (DVT) or Pulmonary Embolism (PE) CRITICAL VALUE CALLED TO PILY 02/19/24 1809 Michelle Tovar. RESULTS READ BACK BY SAME. Performed By: #### L 501.080 #### [facility] [address] [place], [address] Emergency Department Summary on 02-19-2024 Emergency Department Summary [facility] Medical Records Department [address] [place] [address] Emergency Department Summary 02/19/24 MR#: [id number] Acct: [id number] Name: CHRISTY FRANCIS Rep #: [id number] : 1950 74 From: Moris Watson MD PCP: Dr. Marielos Perla, DO Status:REG ER Location: ED HPI History [...] Mechanical loosening of prosthetic knee Atherosclerosis of [place] coronary artery of [place] heart without angina pectoris PAD (peripheral artery [...] and chest (more content not included)... [facility] H AND P Exam - Hospital[place] 02-19-2024 H&P Exam - Hospitalist [facility] Medical Records Department [address] [place] [address] H P Exam - Hospitalist 02/19/24 1732 MR#: [id number] Acct: [id number] Name: CHRISTY FRANCIS Rep #: [id number] : 1950 74 From: Grant Castelan DO PCP: Dr. Marielos Perla DO Status:ADM BRIAN Location: [place] [address] HPI - General General Date of Service: [...] today. Symptoms nahed when she stops. Patient's bnkcrhrx-eo-sov is in the room and states the [...] cardiac in the hospital service was contacted. [facility] Medical History Palpitations Right rotator cuff tear Trigger finger of both hands Carpal tunnel syndrome on both sides FHx: cholecystectomy History of left heart catheterization (LHC) ( 06/03/21) Essential hypertension Mechanical loosening of prosthetic knee Atherosclerosis of [place] coronary artery of [place] heart without angina pectoris PAD (peripheral artery [...] coffee Number of servings: 2 ROS ROS Narrative States that she did have some nausea [...] Pulse O (more content not included)... [facility] L501.4020on 02-19-2024 TROPONIN-I HS 19 pg/mL Normal 3.0-54.0 [facility] Comment on above: Order Comment: Comme nts: SPECIMEN #3'TROP' Serial specimen #1, #2 or #3: 3 Result Comment: Plea se Note: New Test Units and Gender Specific Reference Ranges. For more information see Policy Stat Procedure [place] High Sensitivity Troponin (TNIH) and attachments. Performed By: #### L 502.0250, L500.4100, L500.4050, L100.0100 #### [facility] [address] [place], [address] TROPONIN-I HS 20 pg/mL Normal 3.0-54.0 [facility] Comment on above: Result Comment: Plea se Note: New Test Units and Gender Specific Reference Ranges. For more information see Policy Stat Procedure [place] High Sensitivity Troponin (TNIH) and attachments. Performed By: #### L 501.4020 ####[facility] [address] [place], [address] L501.5425on 02-19-2024 TROPONIN-I HS 19 pg/mL Normal 3.0-54.0 [facility] Comment on above: Order Comment: 1Y Result Comment: Plea se Note: New Test Units and Gender Specific Reference Ranges. For more information see Policy Stat Procedure [place] High Sensitivity Troponin (TNIH) and attachments. Performed By: #### L 502.0250, L500.4100, L500.4050, L100.0100 #### [facility] [address] [place], [address] Prothrombin Time w/INRon INR Coag (PPP) [Relative time] 1.1 {INR} Normal [facility] Comment on above: Performed By: #### L 502.0250, L500.4100, L500.4050, L100.0100 #### [facility] [address] [place], [address] PT Coag (PPP) [Time] 14.0 s Normal 11.7-14.9 [facility] Comment on above: Performed By: #### L 502.0250, L500.4100, L500.4050, L100.0100 #### [facility] [address] [place], [address] CBC W/Diff, Automatedon 10-1 0-4 Absolute Lymph 1.72 X10 3/uL Normal 0.83-4.51 [facility] Comment on above: Performed By: #### L 502.0250, L500.4100, L500.4050, L100.0100 #### [facility] [address] [place], [address] Absolute Neut 5.0 X10 3/uL Normal 2.0-7.7 [facility] Comment on above: Performed By: #### L 502.0250, L500.4100, L500.4050, L100.0100 #### [facility] [address] [place], [address] Basophils/100 WBC (Bld) 0.6 % Normal 0-1 [facility] Comment on above: Performed By: #### L 502.0250, L500.4100, L500.4050, L100.0100 #### [facility] [address] [place], [address] Eosinophils/100 WBC (Bld) 12.8 % High 0-5 [facility] Comment on above: Performed By: #### L 502.0250, L500.4100, L500.4050, L100.0100 #### [facility] [address] [place], [address] Erythrocyte distribution width (RBC) [Ratio] 15.8 % High 11.6-14.6 [facility] Comment on above: Performed By: #### L 502.0250, L500.4100, L500.4050, L100.0100 #### [facility] [address] [place], [address] Hematocrit (Bld) [Volume fraction] 43.8 % Normal 37-47 [facility] Comment on above: Performed By: #### L 502.0250, L500.4100, L500.4050, L100.0100 #### [facility] [address] [place], [address] Hemoglobin (Bld) [Mass/Vol] 13.8 g/dL Normal 12.0-15.0 [facility] Comment on above: Performed By: #### L 502.0250, L500.4100, L500.4050, L100.0100 #### [facility] [address], [address] IG% 0.500 Normal 0.0-0.9 [facility] Comment on above: Result Comment: IG% - Immature Granulocytes (promyelocytes, myelocytes and metamyelocytes) > 1% indicates that a LEFT SHIFT is Present. Performed By: #### L 502.0250, L500.4100, L500.4050, L100.0100 #### [facility] [address] [place], [address] Lymphocytes/100 WBC (Bld) 20.3 % Normal 19-41 [facility] Comment on above: Performed By: #### L 502.0250, L500.4100, L500.4050, L100.0100 #### [facility] [address] [place], [address] MCH (RBC) [Entitic mass] 29.7 pg Normal 27.0-32.0 [facility] Comment on above: Performed By: #### L 502.0250, L500.4100, L500.4050, L100.0100 #### [facility] [address] [place], [address] MCHC (RBC) [Mass/Vol] 31.5 g/dL Low 32-36 [facility] Comment on above: Performed By: #### L 502.0250, L500.4100, L500.4050, L100.0100 #### [facility] [address] [place], [address] MCV (RBC) [Entitic vol] 94.4 fL Normal 81-99 [facility] Comment on above: Performed By: #### L 502.0250, L500.4100, L500.4050, L100.0100 #### [facility] [address] [place], [address] Monocytes/100 WBC (Bld) 7.1 % Normal 0-10 [facility] Comment on above: Performed By: #### L 502.0250, L500.4100, L500.4050, L100.0100 #### [facility] [address] [place], [address] Neutrophils/100 WBC (Bld) 58.7 % Normal 47-70 [facility] Comment on above: Performed By: #### L 502.0250, L500.4100, L500.4050, L100.0100 #### [facility] [address] [place], [address] Nucleated RBC (Bld) [#/Vol] 0 10*3/uL Normal 0-5 [facility] Comment on above: Performed By: #### L 502.0250, L500.4100, L500.4050, L100.0100 #### [facility] [address] [place], [address] Platelet mean volume (Bld) [Entitic vol] 11.1 fL Normal 6.2-12.0 [facility] Comment on above: Performed By: #### L 502.0250, L500.4100, L500.4050, L100.0100 #### [facility] [address] [place], [address] Platelets (Bld) [#/Vol] 296 10*3/uL Normal 150-450 [facility] Comment on above: Performed By: #### L 502.0250, L500.4100, L500.4050, L100.0100 #### [facility] [address] [place], [address] RBC (Bld) [#/Vol] 4.64 10*6/uL Normal 4.2-5.4 [facility] Comment on above: Performed By: #### L 502.0250, L500.4100, L500.4050, L100.0100 #### [facility] [address] [place], [address] RDW SD 54.3 fl High 35.1-43.9 [facility] Comment on above: Performed By: #### L 502.0250, L500.4100, L500.4050, L100.0100 #### [facility] [address] [place], [address] WBC (Bld) [#/Vol] 8.5 10*3/uL Normal 4.4-11.0 [facility] Comment on above: Performed By: #### L 502.0250, L500.4100, L500.4050, L100.0100 #### [facility] [address] [place], [address] Comprehensive Metabolic [facility] 01-27-2024 Albumin [Mass/Vol] 3.2 g/dL Normal 3.2-5.0 [facility] Comment on above: Performed By: #### L 502.0250, L500.4100, L500.4050, L100.0100 #### [facility] [address] [place], [address] Albumin/Globulin [Mass ratio] 0.8 {ratio} Low 0.9-2.4 [facility] Comment on above: Performed By: #### L 502.0250, L500.4100, L500.4050, L100.0100 #### [facility] [address] [place], [address] ALK P 84 U/L Normal 45-117 [facility] Comment on above: Performed By: #### L 502.0250, L500.4100, L500.4050, L100.0100 #### [facility] [address] [place], [address] ALT [Catalytic activity/Vol] 18 U/L Normal 13-56 [facility] Comment on above: Performed By: #### L 502.0250, L500.4100, L500.4050, L100.0100 #### [facility] [address] [place], [address] AST [Catalytic activity/Vol] 20 U/L Normal 15-37 [facility] Comment on above: Performed By: #### L 502.0250, L500.4100, L500.4050, L100.0100 #### [facility] [address] [place], [address] Bilirubin [Mass/Vol] 0.30 mg/dL Normal 0.20-1.00 [facility] Comment on above: Result Comment: For patients on eltrombopag therapy, use of Dimension [place] TBIL is not recommended. Performed By: #### L 502.0250, L500.4100, L500.4050, L100.0100 #### [facility] [address] [place], [address] BUN/CRE 23.6 RATIO High 10-20 [facility] Comment on above: Performed By: #### L 502.0250, L500.4100, L500.4050, L100.0100 #### [facility] [address] [place], [address] CA,Total 9.3 mg/dL Normal 8.5-10.1 [facility] Comment on above: Performed By: #### L 502.0250, L500.4100, L500.4050, L100.0100 #### [facility] [address] [place], [address] Chloride [Moles/Vol] 106 mmol/L Normal 98-107 [facility] Comment on above: Performed By: #### L 502.0250, L500.4100, L500.4050, L100.0100 #### [facility] [address] [place], [address] CO2 [Moles/Vol] 27.0 mmol/L Normal 21.0-32.0 [facility] Comment on above: Performed By: #### L 502.0250, L500.4100, L500.4050, L100.0100 #### [facility] [address] [place], [address] Creatinine [Mass/Vol] 1.40 mg/dL High 0.55-1.02 [facility] Comment on above: Result Comment: The validity of the calculated GFR GFRAA in patients over 70 years has not been determined. Clinical correlation is essential. Performed By: #### L 502.0250, L500.4100, L500.4050, L100.0100 #### [facility] [address] [place], [address] EST GFR - AA 47 mL/min Low >60 [facility] Comment on above: Result Comment: Afri can [place] GFR Calc Performed By: #### L 502.0250, L500.4100, L500.4050, L100.0100 #### [facility] [address] [place], [address] GAP 6 Normal 5-15 [facility] Comment on above: Performed By: #### L 502.0250, L500.4100, L500.4050, L100.0100 #### [facility] [address] [place], [address] GFR/1.73 sq M.predicted among non-blacks MDRD (S/P/Bld) [Vol rate/Area] 39 mL/min/{1.73_m2} Low >60 [facility] Comment on above: Result Comment: Non- GFR Calc Performed By: #### L 502.0250, L500.4100, L500.4050, L100.0100 #### [facility] [address] [place], [address] Globulin (S) [Mass/Vol] 4.1 g/dL Normal 2.2-4.2 [facility] Comment on above: Performed By: #### L 502.0250, L500.4100, L500.4050, L100.0100 #### [facility] [address] [place], [address] Glucose [Mass/Vol] 168 mg/dL High 74-106 [facility] Comment on above: Result Comment: Fast ing Glucose result greater than or equal to 126 mg/dL suggests DIABETES MELLITUS per A.D.A. criteria. Performed By: #### L 502.0250, L500.4100, L500.4050, L100.0100 #### [facility] [address] [place], [address] Potassium [Moles/Vol] 3.4 mmol/L Low 3.5-5.1 [facility] Comment on above: Performed By: #### L 502.0250, L500.4100, L500.4050, L100.0100 #### [facility] [address] [place], [address] Sodium [Moles/Vol] 139 mmol/L Normal 136-145 [facility] Comment on above: Performed By: #### L 502.0250, L500.4100, L500.4050, L100.0100 #### [facility] [address] [place], [address] T PROT 7.3 g/dL Normal 6.4-8.2 [facility] Comment on above: Performed By: #### L 502.0250, L500.4100, L500.4050, L100.0100 #### [facility] [address] [place], [address] Urea nitrogen [Mass/Vol] 33 mg/dL High 7-18 [facility] Comment on above: Performed By: #### L 502.0250, L500.4100, L500.4050, L100.0100 #### [facility] [address] [place], [address] Lipid Profileon 01-27-2024 Cholesterol [Mass/Vol] 135 mg/dL Normal 200 [facility] Comment on above: Result Comment: <200 mg/dL Desirable 200-240 mg/dL Borderline >240 mg/dL High Risk Performed By: #### L 502.0250, L500.4100, L500.4050, L100.0100 #### [facility] [address] [place], [address] Cholesterol in HDL [Mass/Vol] 48 mg/dL Normal [facility] Comment on above: Result Comment: The drugs N-Acetylcysteine and Metamizole may falsely depress this assay. Reference Range HDL <40 mg/dL Low HDL Cholesterol HDL >or= 60 mg/dL High HDL Cholesterol Performed By: #### L 502.0250, L500.4100, L500.4050, L100.0100 #### [facility] [address] [place], [address] Cholesterol in LDL [Mass/Vol] 51 mg/dL Normal 0-130 [facility] Comment on above: Performed By: #### L 502.0250, L500.4100, L500.4050, L100.0100 #### [facility] [address] [place], [address] Cholesterol in VLDL [Mass/Vol] 36 mg/dL Normal 5-40 [facility] Comment on above: Performed By: #### L 502.0250, L500.4100, L500.4050, L100.0100 #### [facility] [address] [place], [address] Triglyceride [Mass/Vol] 180 mg/dL Normal [facility] Comment on above: Result Comment: The drugs N-Acetylcysteine and Metamizole may falsely depress this assay. Serum Triglycerides Reference Interval Normal <150 mg/dL Borderline high 150 - 199 mg/dL High 200 - 499 mg/dL Very High > or = 500 mg/dL Performed By: #### L 502.0250, L500.4100, L500.4050, L100.0100 #### [facility] [address] [place], [address] Microalb:Creat Ratio,Random URon 01-27-2024 Creatinine [Mass/Vol] 104.00 mg/dL Normal NO RAN GE EST. [facility] Comment on above: Performed By: #### L 502.0250, L500.4100, L500.4050, L100.0100 #### [facility] [address] [place], [address] MALB:CRE 901.9 mg/g CRE High <30 mg/g CRE [facility] Comment on above: Performed By: #### L 502.0250, L500.4100, L500.4050, L100.0100 #### [facility] [address] [place], [address] MICROALBUMIN,UR 938.0 mg/L Normal NO RANGE EST. [facility] Comment on above: Performed By: #### L 502.0250, L500.4100, L500.4050, L100.0100 #### [facility] [address] [place], [address] Basophil percentageOrdered B y: Marielos Perla on 06-14-2023 Creatinine [Mass/Vol] 1.4 mg/dL 0.55-1.02 [facility] - Chemistry and C hemistry - challengeOrdered By: Marielos Perla on 06-14-2023 GFR/1.73 sq M.predicted among non-blacks MDRD (S/P/Bld) [Vol rate/Area] 40.0000 mL/min/{1.73_m2} >60 [facility] Absolute lymphocyte countOrd ered By: Marielos Perla on 11-23-2022 Lymphocytes Auto (Unsp spec) [#/Vol] 2.13 10*3/uL 0.83-4.51 [facility] Basophil percentageOrdered B y: Marielos Perla on 11-23-2022 Basophils/100 WBC (Bld) 0.9 % 0-1 [facility] Bilirubin [Mass/Vol] 0.40 mg/dL 0.20-1.00 [facility] Comment on above: For patients on eltr ombopag therapy, use of Dimension [place] TBIL is not recommended. Chloride [Moles/Vol] 106 mmol/L 98-107 [facility] Cholesterol [Mass/Vol] 165 mg/dL <200 [facility] Comment on above: <200 mg/dL Desirable 200-240 mg/dL Borderline >240 mg/dL High Risk Eosinophils/100 WBC (Bld) 7.6 % 0-5 [facility] Glucose [Mass/Vol] 183 mg/dL 74-106 [facility] Comment on above: Fasting Glucose resu lt greater than or equal to 126 mg/dL suggests DIABETES MELLITUS per A.D.A. criteria. Neutrophils (Bld) [#/Vol] 4.6 10*3/uL 2.0-7.7 [facility] Neutrophils/100 WBC (Bld) 55.9 % 47-70 [facility] Potassium [Moles/Vol] 4.3 mmol/L 3.5-5.1 [facility] Protein [Mass/Vol] 7.5 g/dL 6.4-8.2 [facility] Sodium [Moles/Vol] 138 mmol/L 136-145 [facility] Triglyceride [Mass/Vol] 241 mg/dL <199 [facility] Comment on above: The drugs N-Acetylcy steine and Metamizole may falsely depress this assay.Serum Triglycerides Reference Interval Normal <150 mg/dL Borderline high 150 - 199 mg/dL High 200 - 499 mg/dL Very High > or = 500 mg/dL WBC (Bld) [#/Vol] 8.1 10*3/uL 4.4-11.0 [facility] Blood erythrocytes count (nu mber/volume)Ordered By: Marielos Perla on 11-23-2022 RBC (Bld) [#/Vol] 4.97 10*6/uL 4.2-5.4 [facility] Blood hemoglobin measurement (mass/volume)Ordered By: Marielos Perla on 11-23-2022 Hemoglobin (Bld) [Mass/Vol] 15.5 g/dL 12.0-15.0 [facility] Blood lymphocytes/100 leukoc ytesOrdered By: Marielos Perla on 11-23-2022 Lymphocytes/100 WBC (Bld) 26.2 % 19-41 [facility] Blood monocytes/100 leukocyt esOrdered By: Marielos Perla on 11-23-2022 Monocytes/100 WBC (Bld) 9.0 % 0-10 [facility] Blood platelet mean volumeOr dered By: Marielos Perla on 11-23-2022 Platelet mean volume (Bld) [Entitic vol] 11.1 fL 6.2-12.0 [facility] Determination of erythrocyte mean corpuscular volume (MCV)Ordered By: Marielos Perla on 11-23-2022 MCV (RBC) [Entitic vol] 92.6 fL 81-99 [facility] Hematocrit Auto (Bld) [Volum e fraction]Ordered By: Marielos Perla on 11-23-2022 Hematocrit (Bld) [Volume fraction] 46.0 % 37-47 [facility] - Chemistry and C hemistry - challengeOrdered By: Marielos Perla on 11-23-2022 ALP [Catalytic activity/Vol] 65 U/L 45-117 [facility] ALT [Catalytic activity/Vol] 29 U/L 13-56 [facility] CO2 [Moles/Vol] 27.0 mmol/L 21.0-32.0 [facility] Globulin (S) [Mass/Vol] 3.9 g/dL 2.2-4.2 [facility] Urea nitrogen/Creatinine [Mass ratio] 18.0 mg/mg 10-20 [facility] - Hematology and Cell countsOrdered By: Marielos Perla on 11-23-2022 Erythrocyte distribution width (RBC) [Entitic vol] 45.6 fL 35.1-43.9 [facility] Erythrocyte distribution width (RBC) [Ratio] 13.5 % 11.6-14.6 [facility] Immature granulocytes/100 WBC (Bld) 0.400 % 0.0-0.9 [facility] Comment on above: IG% - Immature Granu locytes (promyelocytes, myelocytes and metamyelocytes) > 1% indicates that a LEFT SHIFT is Present. MCH (RBC) [Entitic mass] 31.2 pg 27.0-32.0 [facility] Nucleated RBC/100 WBC (Bld) [Ratio] 0 % 0-5 [facility] MCHC Auto (RBC) [Mass/Vol]Or dered By: Marielos Perla on 11-23-2022 MCHC (RBC) [Mass/Vol] 33.7 g/dL 32-36 [facility] No Panel InformationOrdered By: Marielos Perla on 11-23-2022 Estimated GFR (MDRD) Amer 44 mL/min >60 [facility] Comment on above: GFR Calc Estimated GFR (MDRD) Non-Af Amer 36 mL/min >60 [facility] Comment on above: Non- GFR Calc Urine Microalbumin/Creatini ne Ratio 1038.3 mg/g CRE <30 [facility] Platelets bldOrdered By: Mariposa Perla on 11-23-2022 Platelets (Bld) [#/Vol] 228 10*3/uL 150-450 [facility] Serum or plasma albumin shannon urement (mass/volume)Ordered By: Marielos Perla on 11-23-2022 Albumin [Mass/Vol] 3.6 g/dL 3.2-5.0 [facility] Serum or plasma albumin/glob ulin mass ratioOrdered By: Marielos Perla on 11-23-2022 Albumin/Globulin [Mass ratio] 0.9 {ratio} 0.9-2.4 [facility] Serum or plasma calcium shannon urement (mass/volume)Ordered By: Marielos Perla on 11-23-2022 Calcium [Mass/Vol] 9.1 mg/dL 8.5-10.1 [facility] Serum or plasma cholesterol in HDL measurement (mass/volume)Ordered By: Marielos Perla on 11-23-2022 Cholesterol in HDL [Mass/Vol] 51 mg/dL >40 [facility] Comment on above: The drugs N-Acetylcy steine and Metamizole may falsely depress this assay. Reference Range HDL <40 mg/dL Low HDL Cholesterol HDL >or= 60 mg/dL High HDL Cholesterol Serum or plasma cholesterol in VLDL measurement (mass/volume)Ordered By: Marielos Perla on 11-23-2022 Cholesterol in VLDL [Mass/Vol] 48 mg/dL 5-40 [facility] Serum or plasma creatinine m easurement (mass/volume)Ordered By: Marielos Perla on 11-23-2022 Creatinine [Mass/Vol] 1.50 mg/dL 0.55-1.02 [facility] Comment on above: The validity of the calculated GFR & GFRAA in patients over 70 years has not been determined. Clinical correlation is essential. Serum or plasma low density lipoprotein (LDL) cholesterol measurement (mass/volume)Ordered By: Marielos Perla on 11-23-2022 Cholesterol in LDL [Mass/Vol] 66 mg/dL 0-130 [facility] Serum or plasma urea nitroge n measurement (mass/volume)Ordered By: Marielos Perla on 11-23-2022 Urea nitrogen [Mass/Vol] 27 mg/dL 7-18 [facility] Thin prep Papanicolaou smear with manual screeningOrdered By: Marielos Perla on 11-23-2022 Thin prep Papanicolaou smear with manual screening 24 U/L 15-37 [facility] Thin prep Papanicolaou smear with manual screening 5 5-15 [facility] Thin prep Papanicolaou smear with manual screening 325.0 mg/L NO RANGE EST. [facility] Urine creatinine measurement (mass/volume)Ordered By: Marielos Perla on 11-23-2022 Creatinine (U) [Mass/Vol] 31.30 mg/dL NO RANGE EST. [facility] Basophil percentageOrdered B y: Charlie Johnson on 08-14-2022 Bilirubin [Mass/Vol] 0.30 mg/dL 0.20-1.00 [facility] Comment on above: For patients on eltr ombopag therapy, use of Dimension [place] TBIL is not recommended. Chloride [Moles/Vol] 109 mmol/L 98-107 [facility] Cholesterol [Mass/Vol] 185 mg/dL <200 [facility] Comment on above: <200 mg/dL Desirable 200-240 mg/dL Borderline >240 mg/dL High Risk Glucose [Mass/Vol] 70 mg/dL 74-106 [facility] Potassium [Moles/Vol] 4.2 mmol/L 3.5-5.1 [facility] Protein [Mass/Vol] 7.3 g/dL 6.4-8.2 [facility] Sodium [Moles/Vol] 141 mmol/L 136-145 [facility] Triglyceride [Mass/Vol] 360 mg/dL <199 [facility] Comment on above: The drugs N-Acetylcy steine and Metamizole may falsely depress this assay.Serum Triglycerides Reference Interval Normal <150 mg/dL Borderline high 150 - 199 mg/dL High 200 - 499 mg/dL Very High > or = 500 mg/dL WBC (Bld) [#/Vol] 10.0 10*3/uL 4.4-11.0 [facility] Blood erythrocytes count (nu mber/volume)Ordered By: Charlie Johnson on 08-14-2022 RBC (Bld) [#/Vol] 5.23 10*6/uL 4.2-5.4 [facility] Blood hemoglobin measurement (mass/volume)Ordered By: Charlie Johnson on 08-14-2022 Hemoglobin (Bld) [Mass/Vol] 15.9 g/dL 12.0-15.0 [facility] Blood platelet mean volumeOr dered By: Charlie Johnson on 08-14-2022 Platelet mean volume (Bld) [Entitic vol] 10.5 fL 6.2-12.0 [facility] Determination of erythrocyte mean corpuscular volume (MCV)Ordered By: Charlie Johnson on 08-14-2022 MCV (RBC) [Entitic vol] 95.2 fL 81-99 [facility] Direct bilirubinOrdered By: Charlie Johnson on 08-14-2022 Bilirubin.direct [Mass/Vol] 0.08 mg/dL 0.00-0.30 [facility] Hematocrit Auto (Bld) [Volum e fraction]Ordered By: Charlie Johnson on 08-14-2022 Hematocrit (Bld) [Volume fraction] 49.8 % 37-47 [facility] - Chemistry and C hemistry - challengeOrdered By: Charlie Johnson on 08-14-2022 ALP [Catalytic activity/Vol] 68 U/L 45-117 [facility] ALT [Catalytic activity/Vol] 25 U/L 13-56 [facility] CO2 [Moles/Vol] 28.0 mmol/L 21.0-32.0 [facility] Globulin (S) [Mass/Vol] 4.0 g/dL 2.2-4.2 [facility] Natriuretic peptide B (Bld) [Mass/Vol] 336.8 pg/mL 0-100 [facility] Urea nitrogen/Creatinine [Mass ratio] 19.0 mg/mg 10-20 [facility] - Hematology and Cell countsOrdered By: Charlie Johnson on 08-14-2022 Erythrocyte distribution width (RBC) [Entitic vol] 48.3 fL 35.1-43.9 [facility] Erythrocyte distribution width (RBC) [Ratio] 13.8 % 11.6-14.6 [facility] MCH (RBC) [Entitic mass] 30.4 pg 27.0-32.0 [facility] MCHC Auto (RBC) [Mass/Vol]Or dered By: Charlie Johnson on 08-14-2022 MCHC (RBC) [Mass/Vol] 31.9 g/dL 32-36 [facility] No Panel InformationOrdered By: Charlie Johnson on 08-14-2022 Estimated GFR (MDRD) Amer 49 mL/min >60 [facility] Comment on above: GFR Calc Estimated GFR (MDRD) Non-Af Amer 40 mL/min >60 [facility] Comment on above: Non- GFR Calc Platelets bldOrdered By: Liban Johnson on 08-14-2022 Platelets (Bld) [#/Vol] 309 10*3/uL 150-450 [facility] Serum or plasma albumin shannon urement (mass/volume)Ordered By: Charlie Johnson on 08-14-2022 Albumin [Mass/Vol] 3.3 g/dL 3.2-5.0 [facility] Serum or plasma calcium shannon urement (mass/volume)Ordered By: Charlie Johnson on 08-14-2022 Calcium [Mass/Vol] 9.3 mg/dL 8.5-10.1 [facility] Serum or plasma cholesterol in HDL measurement (mass/volume)Ordered By: Charlie Johnson on 08-14-2022 Cholesterol in HDL [Mass/Vol] 48 mg/dL >40 [facility] Comment on above: The drugs N-Acetylcy steine and Metamizole may falsely depress this assay. Reference Range HDL <40 mg/dL Low HDL Cholesterol HDL >or= 60 mg/dL High HDL Cholesterol Serum or plasma cholesterol in VLDL measurement (mass/volume)Ordered By: Charlie Johnson on 08-14-2022 Cholesterol in VLDL [Mass/Vol] 72 mg/dL 5-40 [facility] Serum or plasma creatinine m easurement (mass/volume)Ordered By: Charlie Johnson on 08-14-2022 Creatinine [Mass/Vol] 1.37 mg/dL 0.55-1.02 [facility] Comment on above: The validity of the calculated GFR & GFRAA in patients over 70 years has not been determined. Clinical correlation is essential. Serum or plasma low density lipoprotein (LDL) cholesterol measurement (mass/volume)Ordered By: Charlie Johnson on 08-14-2022 Cholesterol in LDL [Mass/Vol] 65 mg/dL 0-130 [facility] Serum or plasma urea nitroge n measurement (mass/volume)Ordered By: Charlie Johnson on 08-14-2022 Urea nitrogen [Mass/Vol] 26 mg/dL 7-18 [facility] Thin prep Papanicolaou smear with manual screeningOrdered By: Charlie Johnson on 08-14-2022 Thin prep Papanicolaou smear with manual screening 24 U/L 15-37 [facility] Thin prep Papanicolaou smear with manual screening 4 5-15 [facility] Basophil percentageOrdered B y: Charlie Johnson on 02-25-2022 Bilirubin [Mass/Vol] 0.30 mg/dL 0.20-1.00 [facility] Comment on above: For patients on eltr ombopag therapy, use of Dimension [place] TBIL is not recommended. Cholesterol [Mass/Vol] 156 mg/dL <200 [facility] Comment on above: <200 mg/dL Desirable 200-240 mg/dL Borderline >240 mg/dL High Risk Protein [Mass/Vol] 6.7 g/dL 6.4-8.2 [facility] Triglyceride [Mass/Vol] 213 mg/dL <199 [facility] Comment on above: The drugs N-Acetylcy steine and Metamizole may falsely depress this assay.Serum Triglycerides Reference Interval Normal <150 mg/dL Borderline high 150 - 199 mg/dL High 200 - 499 mg/dL Very High > or = 500 mg/dL Direct bilirubinOrdered By: Charlie Johnson on 02-25-2022 Bilirubin.direct [Mass/Vol] 0.11 mg/dL 0.00-0.30 [facility] - Chemistry and C hemistry - challengeOrdered By: Charlie Johnson on 02-25-2022 ALP [Catalytic activity/Vol] 57 U/L 45-117 [facility] ALT [Catalytic activity/Vol] 26 U/L 13-56 [facility] Globulin (S) [Mass/Vol] 3.5 g/dL 2.2-4.2 [facility] Serum or plasma albumin shannon urement (mass/volume)Ordered By: Charlie Johnson on 02-25-2022 Albumin [Mass/Vol] 3.2 g/dL 3.2-5.0 [facility] Serum or plasma cholesterol in HDL measurement (mass/volume)Ordered By: Charlie Johnson on 02-25-2022 Cholesterol in HDL [Mass/Vol] 50 mg/dL >40 [facility] Comment on above: The drugs N-Acetylcy steine and Metamizole may falsely depress this assay. Reference Range HDL <40 mg/dL Low HDL Cholesterol HDL >or= 60 mg/dL High HDL Cholesterol Serum or plasma cholesterol in VLDL measurement (mass/volume)Ordered By: Charlie Johnson on 02-25-2022 Cholesterol in VLDL [Mass/Vol] 43 mg/dL 5-40 [facility] Serum or plasma low density lipoprotein (LDL) cholesterol measurement (mass/volume)Ordered By: Charlie Johnson on 11-09-2022 Cholesterol in LDL [Mass/Vol] 63 mg/dL 0-130 [facility] Thin prep Papanicolaou smear with manual screeningOrdered By: Charlie Johnson on 02-25-2022 Thin prep Papanicolaou smear with manual screening 18 U/L 15-37 [facility] Basic Metabolic Panelon 02-17 Calcium [Mass/Vol] 9.2 mg/dL Normal 8.4-10.4 [facility] Comment on above: Performed By: #### B GLU #### [facility] [address] [place], [place] Glucose [Mass/Vol] 170 mg/dL High 70-100 [facility] Comment on above: Performed By: #### B GLU #### [facility] [address] [place], [place] Anion gap [Moles/Vol] 11 Normal [facility] Comment on above: Performed By: #### B GLU #### [facility] [address] [place], [place] CO2 [Moles/Vol] 25 mmol/L Normal 22-30 [facility] Comment on above: Performed By: #### B GLU #### [facility] [address] [place], [place] Creatinine [Mass/Vol] 1.21 mg/dL Normal 0.52-1.25 [facility] Comment on above: Performed By: #### B GLU #### [facility] [address] [place], [place] GFR/1.73 sq M predicted among blacks MDRD (S/P/Bld) [Vol rate/Area] 53.5 mL/min/{1.73_m2} Normal >60 [facility] Comment on above: Performed By: #### B GLU #### [facility] [address] [place], [place] GFR/1.73 sq M predicted among non-blacks MDRD (S/P/Bld) [Vol rate/Area] 44.1 mL/min/{1.73_m2} Normal >60 [facility] Comment on above: Result Comment: Sour ce- MDRD equation with creatinine calibration to IDMS(NKDEP) eGFR not recommended for drug dose adjustment Performed By: #### B GLU #### [facility] [address] [place] [address] Urea nitrogen [Mass/Vol] 28 mg/dL High 7-20 [facility] Comment on above: Performed By: #### B GLU #### [facility] [address] [place] [address] Chloride [Moles/Vol] 102 mmol/L Normal 98-107 [facility] Comment on above: Performed By: #### B GLU #### [facility] [address] [place] [address] Potassium [Moles/Vol] 4.6 mmol/L Normal 3.5-5.1 [facility] Comment on above: Performed By: #### B GLU #### [facility] [address] [place] [address] Sodium [Moles/Vol] 138 mmol/L Normal 135-145 [facility] Comment on above: Performed By: #### B GLU #### [facility] [address] [place] [address] Anion gap [Moles/Vol] 11 mmol/L [place], [place] Calcium [Mass/Vol] 9.2 mg/dL 8.4 - 10. 4 mg/dL [place], [place] Chloride [Moles/Vol] 102 mmol/L 98 - 10 7 mmol/L [place] CO2 [Moles/Vol] 25 mmol/L 22 - 30 mmol/L [place] Creatinine [Mass/Vol] 1.21 mg/dL 0.52 - 1.25 mg/dL [place], [place] EGFR IF NonAfrican Argentine 44.1 mL/min >60 [place], [place] Comment on above: Source- MDRD equatio n with creatinine calibration to IDMS(NKDEP) eGFR not recommended for drug dose adjustment GFR/1.73 sq M predicted among blacks MDRD (S/P/Bld) [Vol rate/Area] 53.5 mL/min/{1.73_m2} >60 [place], [place] Glucose [Mass/Vol] 170 mg/dL High 70 - 100 mg/dL [place] Interpretation and review of laboratory results Abnormal [place] Potassium [Moles/Vol] 4.6 mmol/L 3.5 - 5.1 mmol/L [place] Sodium [Moles/Vol] 138 mmol/L 135 - 145 mmol/L [place] Urea nitrogen [Mass/Vol] 28 mg/dL High 7 - 20 mg/dL [place] Test Performed by [facility], [address] [place] [address] [place], [place] CBCon 03-03-2019 Erythrocyte distribution width (RBC) [Ratio] 13.1 % 11.5 - 14.5 % [place] Hematocrit (Bld) [Volume fraction] 32.0 % Low 35 - 47 % [place] Hemoglobin (Bld) [Mass/Vol] 10.6 g/dL Low 11.7 - 16 g/dL [place] Interpretation and review of laboratory results Abnormal [place] MCH (RBC) [Entitic mass] 30.4 pg 26 - 34 pg [place] MCHC (RBC) [Mass/Vol] 33.1 % 32 - 36 % [place] MCV (RBC) [Entitic vol] 91.7 fL 79 - 98 fL [place] Platelet mean volume (Bld) [Entitic vol] 9.4 fL 7.4 - 10.4 fL [place] Platelets (Bld) [#/Vol] 201 10*3/uL 140 - 440 10*3/uL [place] RBC (Bld) [#/Vol] 3.49 10*6/uL Low 3.8 - 5.2 10*6/uL [place] WBC (Bld) [#/Vol] 16.2 10*3/uL High 3.6 - 10.7 10*3/uL [place] Test Performed by [facility], [address] [place] [address] [place], [place] CR Chest Portableon 03-03-20 19 CR Chest Portable Patient Name: CHRISTY FRANCIS Diagnostic Radiology Exam Date/Time 03/03/2019 05:56:23 EST Exam CR Chest Portable Ordering Physician TAYLOR GRANT Accession Number [id number] CPT4 Codes 97944 () Reason For Exam POST OP OPEN [...] Transcribed Date and Time: 03/03/2019 6:46 Normal [facility] Glucose,Bedsideon 03-03-2019 Glucose [Mass/Vol] 220 mg/dL High 70-100 [facility] Comment on above: Result Comment: Test performed by glucose meter. Results may be 10%-15% lower than serum/plasma values. (CLIA ID [id number]) Performed By: #### B GLU #### [address] Glucose [Mass/Vol] 224 mg/dL High 70-100 [facility] Comment on above: Result Comment: Test performed by glucose meter. Results may be 10%-15% lower than serum/plasma values. (CLIA ID [id number]) Performed By: #### B GLU #### [facility] [address] [place], [place] Hemogramon 03-03-2019 Erythrocyte distribution width (RBC) [Ratio] 13.1 % Normal 11.5-14.5 [facility] Comment on above: Performed By: #### B GLU #### [facility] [address] [place], [place] Hematocrit (Bld) [Volume fraction] 32.0 % Low 35.0-47.0 [facility] Comment on above: Performed By: #### B GLU #### [facility] [address], [place] Hemoglobin (Bld) [Mass/Vol] 10.6 g/dL Low 11.7-16.0 [facility] Comment on above: Performed By: #### B GLU #### [facility] [address] [place], [place] MCH (RBC) [Entitic mass] 30.4 pg Normal 26.0-34.0 [facility] Comment on above: Performed By: #### B GLU #### [address] [place], [place] MCHC (RBC) [Mass/Vol] 33.1 % Normal 32.0-36.0 [facility] Comment on above: Performed By: #### B GLU #### [address] [place], [place] MCV (RBC) [Entitic vol] 91.7 fL Normal 79.0-98.0 [facility] Comment on above: Performed By: #### B GLU #### [address] [place] Platelet mean volume (Bld) [Entitic vol] 9.4 fL Normal 7.4-10.4 [facility] Comment on above: Performed By: #### B GLU #### [address] [place], [place] Platelets (Bld) [#/Vol] 201 10*3/uL Normal 140-440 [facility] Comment on above: Performed By: #### B GLU #### [address] [place], [place] RBC (Bld) [#/Vol] 3.49 10*6/uL Low 3.80-5.20 [facility] Comment on above: Performed By: #### B GLU #### [address] [place], [place] WBC (Bld) [#/Vol] 16.2 10*3/uL High 3.6-10.7 [facility] Comment on above: Performed By: #### B GLU #### [address] [address] [place] [address] POCT Glucoseon 03-03-2019 Glucose [Mass/Vol] 220 mg/dL High 70 - 100 mg/dL [facility] [place] Comment on above: Test performed by gl ucose meter. Results may be 10%-15% lower than serum/plasma values. (CLIA ID [id number]) Interpretation and review of laboratory results Abnormal [address] [place], [place] Test Performed by [facility], [address] [place] [address] [facility], [place] Glucose [Mass/Vol] 224 mg/dL High 70 - 100 mg/dL [facility] [place] Comment on above: Test performed by gl ucose meter. Results may be 10%-15% lower than serum/plasma values. (CLIA ID [id number]) Interpretation and review of laboratory results Abnormal [employer], [place] Test Performed by [facility], [address] [place] [address] [facility], [place] XR CHEST PORTABLEon 03-03-20 19 [facility] Incoming Radiology Results From [facility] - 03/03/2019 6:48 AM EST Patient Name: CHRISTY FRANCIS ---Diagnostic Radiology--- Exam Date/Time 03/03/2019 05:56:23 EST Exam CR Chest Portable Ordering Physician GRANT TAYLOR Accession Number [id number] CPT4 Codes 32115 () Reason For Exam POST OP OPEN [...] No new abnormality. Report Dictated on Workstation: [id number] --- Final --- Dictated: 03/03/2019 6:46 am Dictating Physician: MD SOLORZANO JEFFREY Signed Date and Time: 03/03/2019 6:46 am Signed by: MD SOLORZANO JEFFREY Transcribed Date and Time: 03/03/2019 6:46 [place] Patient Name: CHRISTY FRANCIS ---Diagnostic Radiology--- Exam Date/Time 03/03/2019 05:56:23 EST Exam CR Chest Portable Ordering Physician GRANT TAYLOR Accession Number [id number] CPT4 Codes 71352 () Reason For Exam POST OP OPEN [...] JEFFREY Transcribed Date and Time: 03/03/2019 6:46 [place], [place] Basic Metabolic Panelon 11- Calcium [Mass/Vol] 9.3 mg/dL Normal 8.4-10.4 [facility] Comment on above: Performed By: #### B GLU #### [facility] [address], [place] Anion gap [Moles/Vol] 10 Normal [facility] Comment on above: Performed By: #### B GLU #### [facility] [address], [place] CO2 [Moles/Vol] 22 mmol/L Normal 22-30 [facility] Comment on above: Performed By: #### B GLU #### [facility] [address], [place] Creatinine [Mass/Vol] 1.24 mg/dL Normal 0.52-1.25 [facility] Comment on above: Performed By: #### B GLU #### [address] [place] [address] GFR/1.73 sq M predicted among blacks MDRD (S/P/Bld) [Vol rate/Area] 52.0 mL/min/{1.73_m2} Normal >60 [facility] Comment on above: Performed By: #### B GLU #### [address] [place] GFR/1.73 sq M predicted among non-blacks MDRD (S/P/Bld) [Vol rate/Area] 42.9 mL/min/{1.73_m2} Normal >60 [facility] Comment on above: Result Comment: Sour ce- MDRD equation with creatinine calibration to IDMS(NKDEP) eGFR not recommended for drug dose adjustment Performed By: #### B GLU #### [address] [place] Glucose [Mass/Vol] 253 mg/dL High 70-100 [facility] Comment on above: Performed By: #### B GLU #### [address] [place] Urea nitrogen [Mass/Vol] 32 mg/dL High 7-20 [facility] Comment on above: Performed By: #### B GLU #### [address] [place] Chloride [Moles/Vol] 104 mmol/L Normal 98-107 [facility] Comment on above: Performed By: #### B GLU #### [address] [place] Potassium [Moles/Vol] 5.0 mmol/L Normal 3.5-5.1 [facility] Comment on above: Performed By: #### B GLU #### [address] [place] Sodium [Moles/Vol] 135 mmol/L Normal 135-145 [facility] Comment on above: Performed By: #### B GLU #### [address] [address] Anion gap [Moles/Vol] 10 mmol/L [place] Calcium [Mass/Vol] 9.3 mg/dL 8.4 - 10. 4 mg/dL [place] Chloride [Moles/Vol] 104 mmol/L 98 - 10 7 mmol/L [place] CO2 [Moles/Vol] 22 mmol/L 22 - 30 mmol/L [place] Creatinine [Mass/Vol] 1.24 mg/dL 0.52 - 1.25 mg/dL [place] EGFR IF NonAfrican [place] 42.9 mL/min >60 [place] Comment on above: Source- MDRD equatio n with creatinine calibration to IDMS(NKDEP) eGFR not recommended for drug dose adjustment GFR/1.73 sq M predicted among blacks MDRD (S/P/Bld) [Vol rate/Area] 52.0 mL/min/{1.73_m2} >60 [place] Glucose [Mass/Vol] 253 mg/dL High 70 - 100 mg/dL [place] Interpretation and review of laboratory results Abnormal [place] Potassium [Moles/Vol] 5.0 mmol/L 3.5 - 5.1 mmol/L [place] Sodium [Moles/Vol] 135 mmol/L 135 - 145 mmol/L [place] Urea nitrogen [Mass/Vol] 32 mg/dL High 7 - 20 mg/dL [place] Test Performed by [facility], [address] [place] [address] [place] CBCon 03-02-2019 Erythrocyte distribution width (RBC) [Ratio] 13.2 % 11.5 - 14.5 % [place] Hematocrit (Bld) [Volume fraction] 33.8 % Low 35 - 47 % [place] Hemoglobin (Bld) [Mass/Vol] 11.0 g/dL Low 11.7 - 16 g/dL [place] Interpretation and review of laboratory results Abnormal [place] MCH (RBC) [Entitic mass] 30.3 pg 26 - 34 pg [place] MCHC (RBC) [Mass/Vol] 32.6 % 32 - 36 % [place] MCV (RBC) [Entitic vol] 92.7 fL 79 - 98 fL [place] Platelet mean volume (Bld) [Entitic vol] 10.7 fL High 7.4 - 10.4 fL [place] Platelets (Bld) [#/Vol] 169 10*3/uL 140 - 440 10*3/uL [place] RBC (Bld) [#/Vol] 3.65 10*6/uL Low 3.8 - 5.2 10*6/uL [place] WBC (Bld) [#/Vol] 18.8 10*3/uL High 3.6 - 10.7 10*3/uL [place] Test Performed by [id number] [place] [address] CR Chest Portableon 03-02-20 19 CR Chest Portable Patient Name: CHRISTY FRANCIS Diagnostic Radiology Exam Date/Time 03/02/2019 06:07:22 EST Exam CR Chest Portable Ordering Physician GRANT TAYLOR Accession Number [id number] CPT4 Codes 01699 () Reason For Exam POST OP OPEN [...] lung base. Report Dictated on Workstation: [id number] Final Dictated: 03/02/2019 6:14 am Dictating Physician: MD SOLORZANO JEFFREY Signed Date and Time: 03/02/2019 6:16 am Signed by: MD SOLORZANO JEFFREY Transcribed Date and Time: 03/02/2019 6:14 Normal [facility] Echocardiogram transesophage pedro pablo 03-02-2019 Brian, [facility] Incoming Cardiology Results From [facility] - 03/02/2019 8:47 AM EST TRANSESOPHAGEAL ECHOCARDIOGRAM Intraoperative-Pre Pump Only PATIENT: Christy Francis STUDY DATE: 02/27/2019 : 1950 AGE: 69 HT/WT: 154.9 cm (61 80 kg in) (176 lb) GENDER: F BP: 98 / 57 LOCATION: [facility] PATIENT Inpatient [facility] STATUS: *ORDERING PHYSICIAN: * Ronda Carmona *READING PHYSICIAN: * Michi Dewitt, *BUSINESS PLANNING MANAGER: * Janice Trivedi MD [facility] INDICATIONS: CABG. CONCLUSIONS SUMMARY: 1. Left [...] Michi Dewitt MD 03/02/2019 08:46 Prior Signatures: [facility] [place] TRANSESOPHAGEAL ECHOCARDIOGRAM Intraoperative-Pre Pump Only PATIENT: Christy Francis STUDY DATE: 02/27/2019 : 1950 AGE: 69 HT/WT: 154.9 cm (61 80 kg in) (176 lb) GENDER: F BP: 98 / 57 LOCATION: [facility] PATIENT Inpatient [facility] STATUS: *ORDERING PHYSICIAN: * Ronda Carmona *READING PHYSICIAN: * Michi Dewitt, *BUSINESS PLANNING MANAGER: * Janice Trivedi MD [facility] INDICATIONS: CABG. CONCLUSIONS SUMMARY: 1. Left [...] Michi Dewitt MD 03/02/2019 08:46 Prior Signatures: [place] Glucose,Bedsideon 03-02-2019 Glucose [Mass/Vol] 168 mg/dL High 70-100 [facility] [place] Comment on above: Result Comment: Test performed by glucose meter. Results may be 10%-15% lower than serum/plasma values. (CLIA ID [id number]) Performed By: #### B GLU #### [facility] [address] [place] [address] Glucose [Mass/Vol] 249 mg/dL High 70-100 [facility] Comment on above: Result Comment: Test performed by glucose meter. Results may be 10%-15% lower than serum/plasma values. (CLIA ID [id number]) Performed By: #### B GLU #### [facility] [address] [place], [place] Glucose [Mass/Vol] 324 mg/dL High 70-100 [facility] Comment on above: Result Comment: Test performed by glucose meter. Results may be 10%-15% lower than serum/plasma values. (CLIA ID [id number]) Performed By: #### B GLU #### [facility] [address] [place], [place] Glucose [Mass/Vol] 347 mg/dL High 70-100 [facility] Comment on above: Result Comment: Test performed by glucose meter. Results may be 10%-15% lower than serum/plasma values. (CLIA ID [id number]) Performed By: #### B GLU #### [address] [place], [place] Hemogramon 03-02-2019 Erythrocyte distribution width (RBC) [Ratio] 13.2 % Normal 11.5-14.5 [facility] Comment on above: Performed By: #### B GLU #### [address] [place] Hematocrit (Bld) [Volume fraction] 33.8 % Low 35.0-47.0 [facility] Comment on above: Performed By: #### B GLU #### [address] [place] Hemoglobin (Bld) [Mass/Vol] 11.0 g/dL Low 11.7-16.0 [facility] Comment on above: Performed By: #### B GLU #### [address] [place], [place] MCH (RBC) [Entitic mass] 30.3 pg Normal 26.0-34.0 [facility] Comment on above: Performed By: #### B GLU #### [facility] [address] [place], [place] MCHC (RBC) [Mass/Vol] 32.6 % Normal 32.0-36.0 [facility] Comment on above: Performed By: #### B GLU #### [address] [place] MCV (RBC) [Entitic vol] 92.7 fL Normal 79.0-98.0 [facility] Comment on above: Performed By: #### B GLU #### [facility] [address] [place], [place] Platelet mean volume (Bld) [Entitic vol] 10.7 fL High 7.4-10.4 [facility] Comment on above: Performed By: #### B GLU #### [address] [place], [place] Platelets (Bld) [#/Vol] 169 10*3/uL Normal 140-440 [facility] Comment on above: Performed By: #### B GLU #### [address] [address] [place], [place] RBC (Bld) [#/Vol] 3.65 10*6/uL Low 3.80-5.20 [facility] Comment on above: Performed By: #### B GLU #### [address] [place] WBC (Bld) [#/Vol] 18.8 10*3/uL High 3.6-10.7 [facility] Comment on above: Performed By: #### B GLU #### [address] [place], [place] POCT Glucoseon 03-02-2019 Glucose [Mass/Vol] 168 mg/dL High 70 - 100 mg/dL [place] Comment on above: Test performed by gl ucose meter. Results may be 10%-15% lower than serum/plasma values. (CLIA ID [id number]) Interpretation and review of laboratory results Abnormal [place] Test Performed by [facility], [address] [place], [place] Glucose [Mass/Vol] 249 mg/dL High 70 - 100 mg/dL [place] Comment on above: Test performed by gl ucose meter. Results may be 10%-15% lower than serum/plasma values. (CLIA ID [id number]) Interpretation and review of laboratory results Abnormal [facility] [place] Test Performed by [facility], [address] [place] [address] [employer]- [place], [place] Glucose [Mass/Vol] 324 mg/dL High 70 - 100 mg/dL [facility] [place], [place] Comment on above: Test performed by gl ucose meter. Results may be 10%-15% lower than serum/plasma values. (CLIA ID [id number]) Interpretation and review of laboratory results Abnormal [facility] [place], [place] Test Performed by [facility], [address] [place] [address] [facility] [place] Glucose [Mass/Vol] 347 mg/dL High 70 - 100 mg/dL [facility] [place] Comment on above: Test performed by gl ucose meter. Results may be 10%-15% lower than serum/plasma values. (CLIA ID [id number]) Interpretation and review of laboratory results Abnormal [employer] Test Performed by [facility], [address] [place] [address] [facility], [place] XR CHEST PORTABLEon 03-02-20 19 Brian, [facility] Incoming Radiology Results From [facility] - 03/02/2019 6:17 AM EST Patient Name: CHRISTY FRANCIS ---Diagnostic Radiology--- Exam Date/Time 03/02/2019 06:07:22 EST Exam CR Chest Portable Ordering Physician GRANT TAYLOR Accession Number [id number] CPT4 Codes 06149 () Reason For Exam POST OP OPEN [...] JEFFREY Transcribed Date and Time: 03/02/2019 6:14 [place] Patient Name: CHRISTY FRANCIS ---Diagnostic Radiology--- Exam Date/Time 03/02/2019 06:07:22 EST Exam CR Chest Portable Ordering Physician GRANT TAYLOR Accession Number [id number] CPT4 Codes 71981 () Reason For Exam POST OP OPEN [...] JEFFREY Transcribed Date and Time: 03/02/2019 6:14 [place] Basic Metabolic Panelon 11- Calcium [Mass/Vol] 8.9 mg/dL Normal 8.4-10.4 [facility] Comment on above: Performed By: #### B GLU #### [facility] [address] [place], [place] Glucose [Mass/Vol] 293 mg/dL High 70-100 [facility] Comment on above: Performed By: #### B GLU #### [facility] [address] [place], [place] Anion gap [Moles/Vol] 11 Normal [facility] Comment on above: Performed By: #### B GLU #### [facility] [address] [place], [place] CO2 [Moles/Vol] 20 mmol/L Low 22-30 [facility] Comment on above: Performed By: #### B GLU #### [facility] [address] [place], [place] Creatinine [Mass/Vol] 1.40 mg/dL High 0.52-1.25 [facility] Comment on above: Performed By: #### B GLU #### [facility] [address] [place] [address] GFR/1.73 sq M predicted among blacks MDRD (S/P/Bld) [Vol rate/Area] 45.2 mL/min/{1.73_m2} Normal >60 [facility] Comment on above: Performed By: #### B GLU #### [address] [place] GFR/1.73 sq M predicted among non-blacks MDRD (S/P/Bld) [Vol rate/Area] 37.3 mL/min/{1.73_m2} Normal >60 [facility] Comment on above: Result Comment: Sour ce- MDRD equation with creatinine calibration to IDMS(NKDEP) eGFR not recommended for drug dose adjustment Performed By: #### B GLU #### [address] [place] Urea nitrogen [Mass/Vol] 33 mg/dL High 7-20 [facility] Comment on above: Performed By: #### B GLU #### [address] [place] Chloride [Moles/Vol] 102 mmol/L Normal 98-107 [facility] Comment on above: Performed By: #### B GLU #### [address] [place] Potassium [Moles/Vol] 5.5 mmol/L High 3.5-5.1 [facility] Comment on above: Performed By: #### B GLU #### [address] [place] Sodium [Moles/Vol] 132 mmol/L Low 135-145 [facility] Comment on above: Performed By: #### B GLU #### [address] [place] [address] Anion gap [Moles/Vol] 11 mmol/L [place] Calcium [Mass/Vol] 8.9 mg/dL 8.4 - 10. 4 mg/dL [place] Chloride [Moles/Vol] 102 mmol/L 98 - 10 7 mmol/L [place] CO2 [Moles/Vol] 20 mmol/L Low 22 - 30 mmol/L [place] Creatinine [Mass/Vol] 1.4 mg/dL High 0.52 - 1.25 mg/dL [place] EGFR IF NonAfrican [place] 37.3 mL/min >60 [place] Comment on above: Source- MDRD equatio n with creatinine calibration to IDMS(NKDEP) eGFR not recommended for drug dose adjustment GFR/1.73 sq M predicted among blacks MDRD (S/P/Bld) [Vol rate/Area] 45.2 mL/min/{1.73_m2} >60 [place] Glucose [Mass/Vol] 293 mg/dL High 70 - 100 mg/dL [place] Interpretation and review of laboratory results Abnormal [place] Potassium [Moles/Vol] 5.5 mmol/L High 3.5 - 5.1 mmol/L [place] Sodium [Moles/Vol] 132 mmol/L Low 135 - 145 mmol/L [place] Urea nitrogen [Mass/Vol] 33 mg/dL High 7 - 20 mg/dL [place] Test Performed by [facility], [facility] [place] [address] [place] Calcium [Mass/Vol] 9.1 mg/dL Normal 8.4-10.4 [facility] Comment on above: Performed By: #### H CHASTITY AVILA MG3 ####[id number] [place] [address] Anion gap [Moles/Vol] 10 Normal [facility] Comment on above: Performed By: #### H SANGEETA AVILA3, MG3 ####[address] [place] [address] CO2 [Moles/Vol] 22 mmol/L Normal 22-30 [facility] Comment on above: Performed By: #### H SANGEETA AVILA3, MG3 ####[facility] [id number] [place] [address] Creatinine [Mass/Vol] 1.63 mg/dL High 0.52-1.25 [facility] Comment on above: Performed By: #### H SANGEETA AVILA3, MG3 ####[facility] [id number] [place] [address] GFR/1.73 sq M predicted among blacks MDRD (S/P/Bld) [Vol rate/Area] 37.9 mL/min/{1.73_m2} Normal >60 [facility] Comment on above: Performed By: #### H SANGEETA AVILA3, MG3 ####[facility] [id number] [place] [address] GFR/1.73 sq M predicted among non-blacks MDRD (S/P/Bld) [Vol rate/Area] 31.3 mL/min/{1.73_m2} Normal >60 [facility] Comment on above: Result Comment: Sour ce- MDRD equation with creatinine calibration to IDMS(NKDEP) eGFR not recommended for drug dose adjustment Performed By: #### H SANGEETA AVILA3, MG3 ####[facility] [id number] [place] [address] Glucose [Mass/Vol] 90 mg/dL Normal 70-100 [facility] Comment on above: Performed By: #### H SANGEETA AVILA3, MG3 ####[facility] [id number] [place] [address] Urea nitrogen [Mass/Vol] 32 mg/dL High 7-20 [facility] Comment on above: Performed By: #### H SANGEETA AVILA3, MG3 ####[facility] [id number] [place] [address] Chloride [Moles/Vol] 108 mmol/L High 98-107 [facility] Comment on above: Performed By: #### H SANGEETA AVILA3, MG3 ####[facility] [place] [address] Potassium [Moles/Vol] 5.7 mmol/L High 3.5-5.1 [facility] Comment on above: Performed By: #### H EMOG, BMP3, MG3 ####[facility] [place] [address] Sodium [Moles/Vol] 140 mmol/L Normal 135-145 [facility] Comment on above: Performed By: #### H EMOG, BMP3, MG3 ####[facility] [id number] [place] [address] Anion gap [Moles/Vol] 10 mmol/L [place] Calcium [Mass/Vol] 9.1 mg/dL 8.4 - 10. 4 mg/dL [place] Chloride [Moles/Vol] 108 mmol/L High 98 - 10 7 mmol/L [place] CO2 [Moles/Vol] 22 mmol/L 22 - 30 mmol/L [place] Creatinine [Mass/Vol] 1.63 mg/dL High 0.52 - 1.25 mg/dL [place] EGFR IF NonAfrican [place] 31.3 mL/min >60 [place] Comment on above: Source- MDRD equatio n with creatinine calibration to IDMS(NKDEP) eGFR not recommended for drug dose adjustment GFR/1.73 sq M predicted among blacks MDRD (S/P/Bld) [Vol rate/Area] 37.9 mL/min/{1.73_m2} >60 [place] Glucose [Mass/Vol] 90 mg/dL 70 - 100 mg/dL [place] Interpretation and review of laboratory results Abnormal [place] Potassium [Moles/Vol] 5.7 mmol/L High 3.5 - 5.1 mmol/L [place] Sodium [Moles/Vol] 140 mmol/L 135 - 145 mmol/L [place] Urea nitrogen [Mass/Vol] 32 mg/dL High 7 - 20 mg/dL [place] CBCon 03-01-2019 Erythrocyte distribution width (RBC) [Ratio] 13.5 % 11.5 - 14.5 % [place] Hematocrit (Bld) [Volume fraction] 34.2 % Low 35 - 47 % [place] Hemoglobin (Bld) [Mass/Vol] 11.1 g/dL Low 11.7 - 16 g/dL [place] Interpretation and review of laboratory results Abnormal [place] MCH (RBC) [Entitic mass] 30.1 pg 26 - 34 pg [place] MCHC (RBC) [Mass/Vol] 32.4 % 32 - 36 % [place] MCV (RBC) [Entitic vol] 92.9 fL 79 - 98 fL [place] Platelet mean volume (Bld) [Entitic vol] 9.8 fL 7.4 - 10.4 fL [place] Platelets (Bld) [#/Vol] 151 10*3/uL 140 - 440 10*3/uL [place] RBC (Bld) [#/Vol] 3.68 10*6/uL Low 3.8 - 5.2 10*6/uL [place] WBC (Bld) [#/Vol] 17.8 10*3/uL High 3.6 - 10.7 10*3/uL [place] CR Chest Portableon 03-01-20 19 CR Chest Portable Patient Name: CHRISTY FRANCIS Diagnostic Radiology Exam Date/Time 03/01/2019 07:10:13 EST Exam CR Chest Portable Ordering Physician GRANT TAYLOR Accession Number [id number] CPT4 Codes 21655 () Reason For Exam sob Report CLINICAL INFORMATION: Shortness of breath. Status post open heart surgery. CHEST X-RAY, PORTABLE, 0537 hours: An AP portable view is compared to the prior examination of previous day. There is no change in the mediastinal or left lower hemithorax chest tubes or right internal jugular [place]-Jose introducer sheath. There is stable slightly limited lung volumes. No pneumothorax or other acute process or interval change identified. Report Dictated on Final Dictated: 03/01/2019 7:23 am Dictating Physician: MD JIMENEZ HARLAN Signed Date and Time: 03/01/2019 7:25 am Signed by: MD JIMENEZ HARLAN Transcribed Date and Time: 03/01/2019 7:23 Normal [facility] EKG 12 leadon 03-01-2019 [facility] Test Date: 2019-03-01 Pat Name: Christy Francis Department: 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 Results may be 10%-15% lower than serum/plasma values. (CLIA ID [id number]) Performed By: #### B GLU #### [address] [address] Glucose [Mass/Vol] 357 mg/dL High 70-100 [facility] Comment on above: Result Comment: Test performed by glucose meter. Results may be 10%-15% lower than serum/plasma values. (CLIA ID [id number]) Performed By: #### B GLU #### [facility] [address] [place] [address] Glucose [Mass/Vol] 92 mg/dL Normal 70-100 [facility] Comment on above: Result Comment: Test performed by glucose meter. Results may be 10%-15% lower than serum/plasma values. (CLIA ID [id number]) Performed By: #### B GLU ####[facility] [address] [place] [address] Glucose [Mass/Vol] 85 mg/dL Normal 70-100 [facility] Comment on above: Result Comment: Test performed by glucose meter. Results may be 10%-15% lower than serum/plasma values. (CLIA ID [id number]) Performed By: #### B GLU #### [facility] [address] [place] [address] Glucose [Mass/Vol] 95 mg/dL Normal 70-100 [facility] Comment on above: Result Comment: Test performed by glucose meter. Results may be 10%-15% lower than serum/plasma values. (CLIA ID [id number]) Performed By: #### B GLU #### [facility] [address] [place] [address] Glucose [Mass/Vol] 111 mg/dL High 70-100 [facility] Comment on above: Result Comment: Test performed by glucose meter. Results may be 10%-15% lower than serum/plasma values. (CLIA ID [id number]) Performed By: #### B GLU #### [facility] [address] [place] [address] Glucose [Mass/Vol] 149 mg/dL High 70-100 [facility] Comment on above: Result Comment: Test performed by glucose meter. Results may be 10%-15% lower than serum/plasma values. (CLIA ID [id number]) Performed By: #### B GLU #### [facility] [address] [place] [address] Glucose [Mass/Vol] 153 mg/dL High 70-100 [facility] Comment on above: Result Comment: Test performed by glucose meter. Results may be 10%-15% lower than serum/plasma values. (CLIA ID [id number]) Performed By: #### B GLU #### [facility] [address] [place] [place] [address] Glucose [Mass/Vol] 165 mg/dL High 70-100 [facility] Comment on above: Result Comment: Test performed by glucose meter. Results may be 10%-15% lower than serum/plasma values. (CLIA ID [id number]) Performed By: #### B GLU #### [facility] [address] [place] [address] Glucose [Mass/Vol] 150 mg/dL High 70-100 [facility] Comment on above: Result Comment: Test performed by glucose meter. Results may be 10%-15% lower than serum/plasma values. (CLIA ID [id number]) Performed By: #### B GLU #### [facility] [address] [place] [address] Glucose [Mass/Vol] 172 mg/dL High 70-100 [facility] Comment on above: Result Comment: Test performed by glucose meter. Results may be 10%-15% lower than serum/plasma values. (CLIA ID [id number]) Performed By: #### B GLU #### [facility] [address] [place] [place] [address] Glucose [Mass/Vol] 112 mg/dL High 70-100 [facility] Comment on above: Result Comment: Test performed by glucose meter. Results may be 10%-15% lower than serum/plasma values. (CLIA ID [id number]) Performed By: #### B GLU ####[facility] [address] [place] [address] Glucose [Mass/Vol] 96 mg/dL Normal 70-100 [facility] Comment on above: Result Comment: Test performed by glucose meter. Results may be 10%-15% lower than serum/plasma values. (CLIA ID [id number]) Performed By: #### B GLU ####[facility] [address] [place], [place] Glucose [Mass/Vol] 95 mg/dL Normal 70-100 [facility] Comment on above: Result Comment: Test performed by glucose meter. Results may be 10%-15% lower than serum/plasma values. (CLIA ID [id number]) Performed By: #### B GLU ####[facility] [address] [place], [place] Glucose [Mass/Vol] 136 mg/dL High 70-100 [facility] Comment on above: Result Comment: Test performed by glucose meter. Results may be 10%-15% lower than serum/plasma values. (CLIA ID [id number]) Performed By: #### B GLU ####[address] [place], [place] Glucose [Mass/Vol] 162 mg/dL High 70-100 [facility] Comment on above: Result Comment: Test performed by glucose meter. Results may be 10%-15% lower than serum/plasma values. (CLIA ID [id number]) Performed By: #### B GLU ####[facility] [address] [place], [place] Hematologyon 03-01-2019 ABO and Rh group Nom (Bld) [address] [place], [place] Hemogramon 03-01-2019 Erythrocyte distribution width (RBC) [Ratio] 13.5 % Normal 11.5-14.5 [facility] Comment on above: Performed By: #### H EMOG, BMP3, MG3 ####[facility] [address] [place], [place] Hematocrit (Bld) [Volume fraction] 34.2 % Low 35.0-47.0 [facility] Comment on above: Performed By: #### H EMOG, BMP3, MG3 ####[facility] [address] [place], [place] Hemoglobin (Bld) [Mass/Vol] 11.1 g/dL Low 11.7-16.0 [facility] Comment on above: Performed By: #### H EMONicole, BMP3, MG3 ####[address] MCH (RBC) [Entitic mass] 30.1 pg Normal 26.0-34.0 [facility] Comment on above: Performed By: #### H EMONicole, BMP3, MG3 ####[address] MCHC (RBC) [Mass/Vol] 32.4 % Normal 32.0-36.0 [facility] Comment on above: Performed By: #### H EMONicole, BMP3, MG3 ####[address] MCV (RBC) [Entitic vol] 92.9 fL Normal 79.0-98.0 [facility] Comment on above: Performed By: #### H EMOG, BMP3, MG3 ####[address] Platelet mean volume (Bld) [Entitic vol] 9.8 fL Normal 7.4-10.4 [facility] Comment on above: Performed By: #### H EMOG, BMP3, MG3 ####[address] Platelets (Bld) [#/Vol] 151 10*3/uL Normal 140-440 [facility] Comment on above: Performed By: #### H EMOG, BMP3, MG3 ####[address] RBC (Bld) [#/Vol] 3.68 10*6/uL Low 3.80-5.20 [facility] Comment on above: Performed By: #### H EMOG, BMP3, MG3 ####[address] WBC (Bld) [#/Vol] 17.8 10*3/uL High 3.6-10.7 [facility] Comment on above: Performed By: #### H AUSTIN BMP3, MG3 ####[address] [place] [address] Leukodepleted Red Cellson Leukodepleted Red Cells Leukodepleted Red Cells: [id number] released 03/01/19 07:45 JMV Unit Blood Type: A Unit Blood Rh: POS Blood Product Code: AS1 Unit Number: [id number] Unit Status: released Barcoded Unit Number: =[id number] Barcoded Product Code: = Barcoded ABO/Rh: =%6200 Unit Expiration: [id number] Leukodepleted Red Cells: [id number] released 03/01/19 07:45 JMV Unit Blood Type: A Unit Blood Rh: POS Blood Product Code: AS1 Unit Number: [id number] Unit Status: released Barcoded Unit Number: =[id number] Barcoded Product Code: = Barcoded ABO/Rh: =%6200 Unit Expiration: [id number] Normal [facility] Comment on above: Performed By: #### H AUSTIN CMP3M #### [address] [address] Magnesiumon 03-01-2019 Magnesium [Mass/Vol] 2.1 mg/dL Normal 1.6-2.3 [facility] Comment on above: Performed By: #### H AUSTIN BMP3, MG3 ####[address] [place] [address] Magnesium [Mass/Vol] 2.1 mg/dL 1.6 - 2 .3 mg/dL [place], [place] Metabolic Panelon 03-01-2019 Sodium [Moles/Vol] [id number] [place], [place] Sodium [Moles/Vol] [id number] mmol/L [place] Sodium [Moles/Vol] released [place] Otheron 03-01-2019 Test Performed by [address] [address] [facility] [place] Test Performed by [facility], [address] [place] [address] [facility] [place] POCT Glucoseon 03-01-2019 Glucose [Mass/Vol] 334 mg/dL High 70 - 100 mg/dL [facility] [place] Comment on above: Test performed by gl ucose meter. Results may be 10%-15% lower than serum/plasma values. (CLIA ID [id number]) Interpretation and review of laboratory results Abnormal [facility] [place] Test Performed by [facility], [address] [place] [address] [facility] [place] Glucose [Mass/Vol] 357 mg/dL High 70 - 100 mg/dL [facility] [place] Comment on above: Test performed by gl ucose meter. Results may be 10%-15% lower than serum/plasma values. (CLIA ID [id number]) Interpretation and review of laboratory results Abnormal [facility] [place] Test Performed by [facility], [address] [place] [address] [facility] [place] Glucose [Mass/Vol] 85 mg/dL 70 - 100 mg/dL [facility] [place] Comment on above: Test performed by gl ucose meter. Results may be 10%-15% lower than serum/plasma values. (CLIA ID [id number]) Test Performed by [facility], [address] [place] [address] [facility] [place] Glucose [Mass/Vol] 95 mg/dL 70 - 100 mg/dL [facility], [place] Comment on above: Test performed by gl ucose meter. Results may be 10%-15% lower than serum/plasma values. (CLIA ID [id number]) Test Performed by [facility], [address] [place] [address] [facility] [place] Glucose [Mass/Vol] 111 mg/dL High 70 - 100 mg/dL [facility] [place] Comment on above: Test performed by gl ucose meter. Results may be 10%-15% lower than serum/plasma values. (CLIA ID [id number]) Interpretation and review of laboratory results Abnormal [facility] [place] Test Performed by [facility], [address] [place] [address] [facility] [place] Glucose [Mass/Vol] 149 mg/dL High 70 - 100 mg/dL [facility] [place] Comment on above: Test performed by gl ucose meter. Results may be 10%-15% lower than serum/plasma values. (CLIA ID [id number]) Interpretation and review of laboratory results Abnormal [facility] [place] Test Performed by [facility], [address] [place] [address] [facility] [place] Glucose [Mass/Vol] 153 mg/dL High 70 - 100 mg/dL [facility] [place] Comment on above: Test performed by gl ucose meter. Results may be 10%-15% lower than serum/plasma values. (CLIA ID [id number]) Interpretation and review of laboratory results Abnormal [facility] [place] Test Performed by [facility], [address] [place] [address] [facility] [place] Glucose [Mass/Vol] 165 mg/dL High 70 - 100 mg/dL [facility] [place] Comment on above: Test performed by gl ucose meter. Results may be 10%-15% lower than serum/plasma values. (CLIA ID [id number]) Interpretation and review of laboratory results Abnormal [facility] [place] Test Performed by [facility], [address] [place] [address] [facility] [place] Glucose [Mass/Vol] 150 mg/dL High 70 - 100 mg/dL [facility] [place] Comment on above: Test performed by gl ucose meter. Results may be 10%-15% lower than serum/plasma values. (CLIA ID [id number]) Interpretation and review of laboratory results Abnormal [facility] [place] Test Performed by [facility], [address] [place] [address] [facility] [place] Glucose [Mass/Vol] 172 mg/dL High 70 - 100 mg/dL [facility] [place] Comment on above: Test performed by gl ucose meter. Results may be 10%-15% lower than serum/plasma values. (CLIA ID [id number]) Interpretation and review of laboratory results Abnormal [facility], [place] Test Performed by [facility], [address] [place] [address] [place], [place] Glucose [Mass/Vol] 112 mg/dL High 70 - 100 mg/dL [place] Comment on above: Test performed by gl ucose meter. Results may be 10%-15% lower than serum/plasma values. (CLIA ID [id number]) Interpretation and review of laboratory results Abnormal [facility], [place] Test Performed by [facility], [address] [place] [address] [place], [place] Glucose [Mass/Vol] 96 mg/dL 70 - 100 mg/dL [place] Comment on above: Test performed by gl ucose meter. Results may be 10%-15% lower than serum/plasma values. (CLIA ID [id number]) Test Performed by [facility], [facility] [address] [place] [id number] [place] [address] Glucose [Mass/Vol] 95 mg/dL 70 - 100 mg/dL [place] Comment on above: Test performed by gl ucose meter. Results may be 10%-15% lower than serum/plasma values. (CLIA ID [id number]) Test Performed by [facility], [address] [place] [address] [place] PREPARE RBC (CROSSMATCH), 2 Unitson 03-01-2019 Blood product unit ID (Dose) [#] [id number] [place], [place] Blood product unit ID (Dose) [#] [id number] [facility], [place] Potassiumon 03-01-2019 Potassium [Moles/Vol] 5.4 mmol/L High 3.5-5.1 [facility] Comment on above: Performed By: #### B GLU #### [facility] [address] [place] [address] Interpretation and review of laboratory results Abnormal [place], [place] Potassium [Moles/Vol] 5.4 mmol/L High 3.5 - 5.1 mmol/L [place] Test Performed by [facility], [address] [place] [address] [place], [place] XR CHEST PORTABLEon 03-01-20 Patient Name: CHRISTY FRANCIS ---Diagnostic Radiology--- Exam Date/Time 03/01/2019 07:10:13 EST Exam CR Chest Portable Ordering Physician GRANT TAYLOR Accession Number [id number] CPT4 Codes 07720 () Reason For Exam sob Report CLINICAL INFORMATION: Shortness of breath. Status post open heart surgery. CHEST X-RAY, PORTABLE, 0537 hours: An AP portable view is compared to the prior examination of previous day. There is no change in the mediastinal or left lower hemithorax chest tubes or right internal jugular [place]-Jose introducer sheath. There is stable slightly limited lung volumes. No pneumothorax or other acute process or interval change identified. Report Dictated on --- Final --- Dictated: 03/01/2019 7:23 am Dictating Physician: MD JIMENEZ HARLAN Signed Date and Time: 03/01/2019 7:25 am Signed by: MD JIMENEZ HARLAN Transcribed Date and Time: 03/01/2019 7:23 [place], [place] Kathie Torres Incoming Radiology Results From [facility] - 03/01/2019 7:26 AM EST Patient Name: CHRISTY FRANCIS ---Diagnostic Radiology--- Exam Date/Time 03/01/2019 07:10:13 EST Exam CR Chest Portable Ordering Physician GRANT TAYLOR Accession Number [id number] CPT4 Codes 12186 () Reason For Exam sob Report CLINICAL INFORMATION: Shortness of breath. Status post open heart surgery. CHEST X-RAY, PORTABLE, 0537 hours: An AP portable view is compared to the prior examination of previous day. There is no change in the mediastinal or left lower hemithorax chest tubes or right internal jugular [place]-Jose introducer sheath. There is stable slightly limited lung volumes. No pneumothorax or other acute process or interval change identified. Report Dictated on --- Final --- Dictated: 03/01/2019 7:23 am Dictating Physician: MD JIMENEZ HARLAN Signed Date and Time: 03/01/2019 7:25 am Signed by: MD JIMENEZ HARLAN Transcribed Date and Time: 03/01/2019 7:23 [facility], [place] Basic Metabolic Panelon 11 Calcium [Mass/Vol] 9.3 mg/dL Normal 8.4-10.4 [facility] Comment on above: Performed By: #### B GLU #### [address] [place], [place] Anion gap [Moles/Vol] 14 Normal [facility] Comment on above: Performed By: #### B GLU #### [address] [place], [place] CO2 [Moles/Vol] 18 mmol/L Low 22-30 [facility] Comment on above: Performed By: #### B GLU #### [address] [place] Creatinine [Mass/Vol] 1.35 mg/dL High 0.52-1.25 [facility] Comment on above: Performed By: #### B GLU #### [address] [place], [place] GFR/1.73 sq M predicted among blacks MDRD (S/P/Bld) [Vol rate/Area] 47.1 mL/min/{1.73_m2} Normal >60 [facility] Comment on above: Performed By: #### B GLU #### [address] [place] GFR/1.73 sq M predicted among non-blacks MDRD (S/P/Bld) [Vol rate/Area] 38.9 mL/min/{1.73_m2} Normal >60 [facility] Comment on above: Result Comment: Sour ce- MDRD equation with creatinine calibration to IDMS(NKDEP) eGFR not recommended for drug dose adjustment Performed By: #### B GLU #### [address] [place] [address] Glucose [Mass/Vol] 127 mg/dL High 70-100 [facility] Comment on above: Performed By: #### B GLU #### [facility] [address] [place] [address] Urea nitrogen [Mass/Vol] 25 mg/dL High 7-20 [facility] Comment on above: Performed By: #### B GLU #### [facility] [address] [place] [address] Chloride [Moles/Vol] 109 mmol/L High 98-107 [facility] Comment on above: Performed By: #### B GLU #### [facility] [address] [place] [address] Potassium [Moles/Vol] 4.7 mmol/L Normal 3.5-5.1 [facility] Comment on above: Performed By: #### B GLU #### [facility] [address] [place], [place] Sodium [Moles/Vol] 141 mmol/L Normal 135-145 [facility] Comment on above: Performed By: #### B GLU #### [facility] [address] [place], [place] Anion gap [Moles/Vol] 14 mmol/L [place], [place] Calcium [Mass/Vol] 9.3 mg/dL 8.4 - 10. 4 mg/dL [place], [place] Chloride [Moles/Vol] 109 mmol/L High 98 - 10 7 mmol/L [place] CO2 [Moles/Vol] 18 mmol/L Low 22 - 30 mmol/L [place] Creatinine [Mass/Vol] 1.35 mg/dL High 0.52 - 1.25 mg/dL [place], [place] EGFR IF NonAfrican [place] 38.9 mL/min >60 [place] Comment on above: Source- MDRD equatio n with creatinine calibration to IDMS(NKDEP) eGFR not recommended for drug dose adjustment GFR/1.73 sq M predicted among blacks MDRD (S/P/Bld) [Vol rate/Area] 47.1 mL/min/{1.73_m2} >60 [place], [place] Glucose [Mass/Vol] 127 mg/dL High 70 - 100 mg/dL [place] Potassium [Moles/Vol] 4.7 mmol/L 3.5 - 5.1 mmol/L [place] Sodium [Moles/Vol] 141 mmol/L 135 - 145 mmol/L [place] Urea nitrogen [Mass/Vol] 25 mg/dL High 7 - 20 mg/dL [place] Test Performed by [facility], [address], [place] Potassium [Moles/Vol] 7.0 mmol/L Critically high 3.5-5.1 [facility] Comment on above: Result Comment: repe ated Performed By: #### B GLU #### [address] [place], [place] Calcium [Mass/Vol] 9.2 mg/dL Normal 8.4-10.4 [facility] Comment on above: Performed By: #### B GLU #### [address] [place] Glucose [Mass/Vol] 115 mg/dL High 70-100 [facility] Comment on above: Performed By: #### B GLU #### [address] [place], [place] Anion gap [Moles/Vol] 9 Normal [facility] Comment on above: Performed By: #### B GLU #### [address] [place], [place] CO2 [Moles/Vol] 21 mmol/L Low 22-30 [facility] Comment on above: Performed By: #### B GLU #### [address] [place], [place] Creatinine [Mass/Vol] 1.18 mg/dL Normal 0.52-1.25 [facility] Comment on above: Performed By: #### B GLU #### [address] [place] GFR/1.73 sq M predicted among blacks MDRD (S/P/Bld) [Vol rate/Area] 55.0 mL/min/{1.73_m2} Normal >60 [facility] Comment on above: Performed By: #### B GLU #### [facility] [address] [place] [address] GFR/1.73 sq M predicted among non-blacks MDRD (S/P/Bld) [Vol rate/Area] 45.4 mL/min/{1.73_m2} Normal >60 [facility] Comment on above: Result Comment: Sour ce- MDRD equation with creatinine calibration to IDMS(NKDEP) eGFR not recommended for drug dose adjustment Performed By: #### B GLU #### [address] [place] [address] Urea nitrogen [Mass/Vol] 25 mg/dL High 7-20 [facility] Comment on above: Performed By: #### B GLU #### [address] [place] [address] Chloride [Moles/Vol] 110 mmol/L High 98-107 [facility] Comment on above: Performed By: #### B GLU #### [address] [place] [address] Sodium [Moles/Vol] 139 mmol/L Normal 135-145 [facility] Comment on above: Performed By: #### B GLU #### [address] [place] [address] Anion gap [Moles/Vol] 9 mmol/L [place] Calcium [Mass/Vol] 9.2 mg/dL 8.4 - 10. 4 mg/dL [place] Chloride [Moles/Vol] 110 mmol/L High 98 - 10 7 mmol/L [place] CO2 [Moles/Vol] 21 mmol/L Low 22 - 30 mmol/L [place] Creatinine [Mass/Vol] 1.18 mg/dL 0.52 - 1.25 mg/dL [place] EGFR IF NonAfrican [place] 45.4 mL/min >60 [place] Comment on above: Source- MDRD equatio n with creatinine calibration to IDMS(NKDEP) eGFR not recommended for drug dose adjustment GFR/1.73 sq M predicted among blacks MDRD (S/P/Bld) [Vol rate/Area] 55.0 mL/min/{1.73_m2} >60 [place] Glucose [Mass/Vol] 115 mg/dL High 70 - 100 mg/dL [place] Interpretation and review of laboratory results Abnormal [place] Potassium [Moles/Vol] 7.0 mmol/L Critically high 3.5 - 5.1 mmol/L [place] Comment on above: repeated Sodium [Moles/Vol] 139 mmol/L 135 - 145 mmol/L [place] Urea nitrogen [Mass/Vol] 25 mg/dL High 7 - 20 mg/dL [place] Test Performed by [facility], [address] [place] [address] [place], [place] CBCon 02-28-2019 Erythrocyte distribution width (RBC) [Ratio] 13.1 % 11.5 - 14.5 % [place] Hematocrit (Bld) [Volume fraction] 34.8 % Low 35 - 47 % [place] Hemoglobin (Bld) [Mass/Vol] 11.4 g/dL Low 11.7 - 16 g/dL [place] Interpretation and review of laboratory results Abnormal [place] MCH (RBC) [Entitic mass] 30.3 pg 26 - 34 pg [place] MCHC (RBC) [Mass/Vol] 32.8 % 32 - 36 % [place] MCV (RBC) [Entitic vol] 92.3 fL 79 - 98 fL [place] Platelet mean volume (Bld) [Entitic vol] 10.1 fL 7.4 - 10.4 fL [place] Platelets (Bld) [#/Vol] 160 10*3/uL 140 - 440 10*3/uL [place] RBC (Bld) [#/Vol] 3.78 10*6/uL Low 3.8 - 5.2 10*6/uL [place] WBC (Bld) [#/Vol] 18.8 10*3/uL High 3.6 - 10.7 10*3/uL [place] Test Performed by [facility], [address] [place] [address] [place], [place] CR Chest Portableon 02-29-20 19 CR Chest Portable Patient Name: CHRISTY FRANCIS Diagnostic Radiology Exam Date/Time 02/28/2019 07:24:40 EST Exam CR Chest Portable Ordering Physician GRANT TAYLOR Accession Number [id number] CPT4 Codes 03637 () Reason For Exam POST OPEN HEART Report CHEST - PORTABLE: CLINICAL INDICATION: Respiratory distress for follow up TECHNIQUE: Portable AP COMPARISON: One day ago FINDINGS: Life support devices: Right jugular venous sheath is noted. The [place]-Jose catheter has been removed. 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1950 Requested By: Order Number: [id number] Reading MD: Bryce Hayden Measurements Intervals [place] Rate: 95 P: 61 FL: 146 QRS: 11 QRSD: 85 T: 93 QT: 321 QTc: 404 Interpretive Statements Sinus rhythm Left atrial enlargement Nonspecific T abnormalities, lateral leads Electronically Signed On 02-28-2019 12:56:39 EST by Bryce Hayden [place], [place] Brian, [facility] Incoming Cardiology Results From [facility] - 02/28/2019 12:57 PM EST [facility] Test Date: 2019-02-28 Pat Name: Christy Francis Department: 1[facility] Room: [facility] 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 Results may be 10%-15% lower than serum/plasma values. (CLIA ID [id number]) Performed By: #### B GLU ####[facility] [address] [place] [address] Glucose [Mass/Vol] 196 mg/dL High [address] Comment on above: Result Comment: Test performed by glucose meter. Results may be 10%-15% lower than serum/plasma values. (CLIA ID [id number]) Performed By: #### B GLU #### [facility] [address] [place] [address] Glucose [Mass/Vol] 135 mg/dL High 70-100 [facility] Comment on above: Result Comment: Test performed by glucose meter. Results may be 10%-15% lower than serum/plasma values. (CLIA ID [id number]) Performed By: #### B GLU #### [facility] [address] [place] [address] Glucose [Mass/Vol] 121 mg/dL High [address] [facility] Comment on above: Result Comment: Test performed by glucose meter. Results may be 10%-15% lower than serum/plasma values. (CLIA ID [id number]) Performed By: #### B GLU #### [facility] [address] [place] [place] [address] Glucose [Mass/Vol] 76 mg/dL Normal 70-100 [facility] Comment on above: Result Comment: Test performed by glucose meter. Results may be 10%-15% lower than serum/plasma values. (CLIA ID [id number]) Performed By: #### B GLU #### [facility] [address] [place] [facility] [address] Glucose [Mass/Vol] 76 mg/dL Normal 70-100 [facility] Comment on above: Result Comment: Test performed by glucose meter. Results may be 10%-15% lower than serum/plasma values. (CLIA ID [id number]) Performed By: #### B GLU #### [facility] [address] [place] [place] [place] [address] Glucose [Mass/Vol] 90 mg/dL Normal 70-100 [facility] Comment on above: Result Comment: Test performed by glucose meter. Results may be 10%-15% lower than serum/plasma values. (CLIA ID [id number]) Performed By: #### B GLU #### [facility] [address] [place] [place] [address] Glucose [Mass/Vol] 97 mg/dL Normal 70-100 [facility] Comment on above: Result Comment: Test performed by glucose meter. Results may be 10%-15% lower than serum/plasma values. (CLIA ID [id number]) Performed By: #### B GLU #### [facility] [address] [place] [place] [address] Glucose [Mass/Vol] 123 mg/dL High 70-100 [facility] Comment on above: Result Comment: Test performed by glucose meter. Results may be 10%-15% lower than serum/plasma values. (CLIA ID [id number]) Performed By: #### B GLU #### [facility] [address] [place] [place] [address] Glucose [Mass/Vol] 133 mg/dL High 70-100 [facility] Comment on above: Result Comment: Test performed by glucose meter. Results may be 10%-15% lower than serum/plasma values. (CLIA ID [id number]) Performed By: #### B GLU #### [facility] [address] [place] [address] Glucose [Mass/Vol] 115 mg/dL High 70-100 [facility] Comment on above: Result Comment: Test performed by glucose meter. Results may be 10%-15% lower than serum/plasma values. (CLIA ID [id number]) Performed By: #### B GLU #### [facility] [address] [place] [address] Glucose [Mass/Vol] 138 mg/dL High 70-100 [place] Comment on above: Test performed by gl ucose meter. Results may be 10%-15% lower than serum/plasma values. (CLIA ID [id number]) Result Comment: Test performed by glucose meter. Results may be 10%-15% lower than serum/plasma values. (CLIA ID [id number]) Performed By: #### B GLU #### [facility] [address] [place] [address] Glucose [Mass/Vol] 135 mg/dL High 70-100 [facility] Comment on above: Result Comment: Test performed by glucose meter. Results may be 10%-15% lower than serum/plasma values. (CLIA ID [id number]) Performed By: #### B GLU #### [facility] [address] [place] [address] Glucose [Mass/Vol] 134 mg/dL High 70-100 [facility] Comment on above: Result Comment: Test performed by glucose meter. Results may be 10%-15% lower than serum/plasma values. (CLIA ID [id number]) Performed By: #### B GLU #### [facility] [address] [place] [address] Glucose [Mass/Vol] 143 mg/dL High 70-100 [facility] Comment on above: Result Comment: Test performed by glucose meter. Results may be 10%-15% lower than serum/plasma values. (CLIA ID [id number]) Performed By: #### B GLU #### [facility] [address] [place] [address] Glucose [Mass/Vol] 110 mg/dL High 70-100 [facility] Comment on above: Result Comment: Test performed by glucose meter. Results may be 10%-15% lower than serum/plasma values. (CLIA ID [id number]) Performed By: #### B GLU #### [facility] [address] [place] [address] Glucose [Mass/Vol] 155 mg/dL High 70-100 [facility] [place] Comment on above: Test performed by gl ucose meter. Results may be 10%-15% lower than serum/plasma values. (CLIA ID [id number]) Result Comment: Test performed by glucose meter. Results may be 10%-15% lower than serum/plasma values. (CLIA ID [id number]) Performed By: #### B GLU #### [facility] [address] [place] [address] Glucose [Mass/Vol] 104 mg/dL High 70-100 [facility] Comment on above: Result Comment: Test performed by glucose meter. Results may be 10%-15% lower than serum/plasma values. (CLIA ID [id number]) Performed By: #### B GLU #### [facility] [address] [place] [address] Glucose [Mass/Vol] 82 mg/dL Normal 70-100 [facility] Comment on above: Result Comment: Test performed by glucose meter. Results may be 10%-15% lower than serum/plasma values. (CLIA ID [id number]) Performed By: #### B GLU #### [facility] [address] [place] [address] Glucose [Mass/Vol] 92 mg/dL Normal 70-100 [facility], [place] Comment on above: Test performed by gl ucose meter. Results may be 10%-15% lower than serum/plasma values. (CLIA ID [id number]) Result Comment: Test performed by glucose meter. Results may be 10%-15% lower than serum/plasma values. (CLIA ID [id number]) Performed By: #### B GLU #### [facility] [address] [place] [address] Glucose [Mass/Vol] 110 mg/dL High 70-100 [facility] Comment on above: Result Comment: Test performed by glucose meter. Results may be 10%-15% lower than serum/plasma values. (CLIA ID [id number]) Performed By: #### B GLU #### [facility] [address] [place] [address] Glucose [Mass/Vol] 122 mg/dL High 70-100 [facility] Comment on above: Result Comment: Test performed by glucose meter. Results may be 10%-15% lower than serum/plasma values. (CLIA ID [id number]) Performed By: #### B GLU #### [facility] [address] [place] [address] Glucose [Mass/Vol] 152 mg/dL High 70-100 [facility] Comment on above: Result Comment: Test performed by glucose meter. Results may be 10%-15% lower than serum/plasma values. (CLIA ID [id number]) Performed By: #### B GLU #### [address] [place] [place] Glucose [Mass/Vol] 156 mg/dL High 70-100 [facility] Comment on above: Result Comment: Test performed by glucose meter. Results may be 10%-15% lower than serum/plasma values. (CLIA ID [id number]) Performed By: #### B GLU #### [facility] [address] [place] [address] Hemogramon 02-28-2019 Erythrocyte distribution width (RBC) [Ratio] 13.1 % Normal 11.5-14.5 [facility] Comment on above: Performed By: #### B GLU #### [facility] [address] [place] [address] Hematocrit (Bld) [Volume fraction] 34.8 % Low 35.0-47.0 [facility] Comment on above: Performed By: #### B GLU #### [facility] [address] [place], [place] Hemoglobin (Bld) [Mass/Vol] 11.4 g/dL Low 11.7-16.0 [facility] Comment on above: Performed By: #### B GLU #### [facility] [address] [place], [place] MCH (RBC) [Entitic mass] 30.3 pg Normal 26.0-34.0 [facility] Comment on above: Performed By: #### B GLU #### [address] [place] MCHC (RBC) [Mass/Vol] 32.8 % Normal 32.0-36.0 [facility] Comment on above: Performed By: #### B GLU #### [address] [place] MCV (RBC) [Entitic vol] 92.3 fL Normal 79.0-98.0 [facility] Comment on above: Performed By: #### B GLU #### [address] [place] Platelet mean volume (Bld) [Entitic vol] 10.1 fL Normal 7.4-10.4 [facility] Comment on above: Performed By: #### B GLU #### [address] [place] Platelets (Bld) [#/Vol] 160 10*3/uL Normal 140-440 [facility] Comment on above: Performed By: #### B GLU #### [address] [place] RBC (Bld) [#/Vol] 3.78 10*6/uL Low 3.80-5.20 [facility] Comment on above: Performed By: #### B GLU #### [address] [place], [place] WBC (Bld) [#/Vol] 18.8 10*3/uL High 3.6-10.7 [facility] Comment on above: Performed By: #### B GLU #### [facility] [address] [place] [address] Otheron 02-28-2019 Interpretation and review of laboratory results Abnormal [facility] [place] POCT Glucoseon 02-28-2019 Glucose [Mass/Vol] 136 mg/dL High 70 - 100 mg/dL [facility] [place] Comment on above: Test performed by gl ucose meter. Results may be 10%-15% lower than serum/plasma values. (CLIA ID [id number]) Interpretation and review of laboratory results Abnormal [facility] [place] Test Performed by [facility], [address] [place] [address] [facility] [place] Glucose [Mass/Vol] 162 mg/dL High 70 - 100 mg/dL [facility] [place] Comment on above: Test performed by gl ucose meter. Results may be 10%-15% lower than serum/plasma values. (CLIA ID [id number]) Interpretation and review of laboratory results Abnormal [facility] [place] Test Performed by [facility], [facility] [place] [address] [facility] [place] Glucose [Mass/Vol] 214 mg/dL High 70 - 100 mg/dL [facility] [place] Comment on above: Test performed by gl ucose meter. Results may be 10%-15% lower than serum/plasma values. (CLIA ID [id number]) Interpretation and review of laboratory results Abnormal [facility] [place] Test Performed by [facility], [facility] [place] [address] [facility] [place] Glucose [Mass/Vol] 196 mg/dL High 70 - 100 mg/dL [facility] [place] Comment on above: Test performed by gl ucose meter. Results may be 10%-15% lower than serum/plasma values. (CLIA ID [id number]) Interpretation and review of laboratory results Abnormal [facility] [place] Test Performed by [facility], [address] [place] [address] [facility] [place] Glucose [Mass/Vol] 135 mg/dL High 70 - 100 mg/dL [facility] [place] Comment on above: Test performed by gl ucose meter. Results may be 10%-15% lower than serum/plasma values. (CLIA ID [id number]) Interpretation and review of laboratory results Abnormal [facility] [place] Test Performed by [facility], [address] [place] [address] [facility], [place] Glucose [Mass/Vol] 121 mg/dL High 70 - 100 mg/dL [facility], [place] Comment on above: Test performed by gl ucose meter. Results may be 10%-15% lower than serum/plasma values. (CLIA ID [id number]) Interpretation and review of laboratory results Abnormal [facility] [place] Test Performed by [facility], [address] [place] [address] [facility] [place] Glucose [Mass/Vol] 76 mg/dL 70 - 100 mg/dL [facility], [place] Comment on above: Test performed by gl ucose meter. Results may be 10%-15% lower than serum/plasma values. (CLIA ID [id number]) Test Performed by [facility], [address] [place] [address] [facility], [place] Glucose [Mass/Vol] 76 mg/dL 70 - 100 mg/dL [place] Comment on above: Test performed by gl ucose meter. Results may be 10%-15% lower than serum/plasma values. (CLIA ID [id number]) Test Performed by [facility], [address] [place] [address] [facility], [place] Glucose [Mass/Vol] 90 mg/dL 70 - 100 mg/dL [facility], [place] Comment on above: Test performed by gl ucose meter. Results may be 10%-15% lower than serum/plasma values. (CLIA ID [id number]) Test Performed by [facility], [address] [place] [address] [facility] [place] Glucose [Mass/Vol] 97 mg/dL 70 - 100 mg/dL [facility], [place] Comment on above: Test performed by gl ucose meter. Results may be 10%-15% lower than serum/plasma values. (CLIA ID [id number]) Test Performed by [facility], [address] [place] [address] [facility] [place] Glucose [Mass/Vol] 123 mg/dL High 70 - 100 mg/dL [facility] [place] Comment on above: Test performed by gl ucose meter. Results may be 10%-15% lower than serum/plasma values. (CLIA ID [id number]) Interpretation and review of laboratory results Abnormal [facility] [place] Test Performed by [facility], [address] [place] [address] [facility] [place] Glucose [Mass/Vol] 133 mg/dL High 70 - 100 mg/dL [facility] [place] Comment on above: Test performed by gl ucose meter. Results may be 10%-15% lower than serum/plasma values. (CLIA ID [id number]) Interpretation and review of laboratory results Abnormal [facility] [place] Test Performed by [facility], [address] [place] [address] [facility] [place] Glucose [Mass/Vol] 115 mg/dL High 70 - 100 mg/dL [facility] [place] Comment on above: Test performed by gl ucose meter. Results may be 10%-15% lower than serum/plasma values. (CLIA ID [id number]) Interpretation and review of laboratory results Abnormal [facility] [place] Test Performed by [facility], [address] [place] [address] [facility] [place] Glucose [Mass/Vol] 135 mg/dL High 70 - 100 mg/dL [facility] [place] Comment on above: Test performed by gl ucose meter. Results may be 10%-15% lower than serum/plasma values. (CLIA ID [id number]) Interpretation and review of laboratory results Abnormal [facility] [place] Test Performed by [facility], [address] [place] [address] [facility] [place] Glucose [Mass/Vol] 134 mg/dL High 70 - 100 mg/dL [facility] [place] Comment on above: Test performed by gl ucose meter. Results may be 10%-15% lower than serum/plasma values. (CLIA ID [id number]) Interpretation and review of laboratory results Abnormal [facility] [place] Test Performed by [facility], [address] [place] [address] [facility] [place] Glucose [Mass/Vol] 143 mg/dL High 70 - 100 mg/dL [facility] [place] Comment on above: Test performed by gl ucose meter. Results may be 10%-15% lower than serum/plasma values. (CLIA ID [id number]) Interpretation and review of laboratory results Abnormal [facility] [place] Test Performed by [facility], [address] [place] [address] [facility] [place] Glucose [Mass/Vol] 110 mg/dL High 70 - 100 mg/dL [facility] [place] Comment on above: Test performed by gl ucose meter. Results may be 10%-15% lower than serum/plasma values. (CLIA ID [id number]) Interpretation and review of laboratory results Abnormal [facility] [place] Test Performed by [facility], [address], [place] [address] [facility] [place] Glucose [Mass/Vol] 104 mg/dL High 70 - 100 mg/dL [facility] [place] Comment on above: Test performed by gl ucose meter. Results may be 10%-15% lower than serum/plasma values. (CLIA ID [id number]) Interpretation and review of laboratory results Abnormal [facility] [place] Test Performed by [facility], [address] [place] [address] [facility] [place] Glucose [Mass/Vol] 82 mg/dL 70 - 100 mg/dL [facility] [place] Comment on above: Test performed by gl ucose meter. Results may be 10%-15% lower than serum/plasma values. (CLIA ID [id number]) Test Performed by [facility], [address] [place] [address] [facility] [place] Test Performed by [facility], [address] [place] [address] [facility] [place] Glucose [Mass/Vol] 110 mg/dL High 70 - 100 mg/dL [facility] [place] Comment on above: Test performed by gl ucose meter. Results may be 10%-15% lower than serum/plasma values. (CLIA ID [id number]) Interpretation and review of laboratory results Abnormal [place] Test Performed by [facility], [address] [place] [address] [place] Glucose [Mass/Vol] 122 mg/dL High 70 - 100 mg/dL [place] Comment on above: Test performed by gl ucose meter. Results may be 10%-15% lower than serum/plasma values. (CLIA ID [id number]) Interpretation and review of laboratory results Abnormal [place] Test Performed by [facility], [facility] [place], [place] [address] [place] [address] Potassiumon 02-28-2019 Potassium [Moles/Vol] 6.7 mmol/L Critically high 3.5-5.1 [facility] Comment on above: Result Comment: Repe ated Performed By: #### B GLU #### [address] [address] [place] [address] Interpretation and review of laboratory results Abnormal [place] Potassium [Moles/Vol] 6.7 mmol/L Critically high 3.5 - 5.1 mmol/L [place] Comment on above: Repeated Test Performed by [facility], [facility] [place] [address] [place] XR CHEST PORTABLEon 02-29-20 19 Patient Name: CHRISTY FRANCIS ---Diagnostic Radiology--- Exam Date/Time 02/28/2019 07:24:40 EST Exam CR Chest Portable Ordering Physician GRANT TAYLOR Accession Number [id number] CPT4 Codes 25619 () Reason For Exam POST OPEN HEART Report CHEST - PORTABLE: CLINICAL INDICATION: Respiratory distress for follow up TECHNIQUE: Portable AP COMPARISON: One day ago FINDINGS: Life support devices: Right jugular venous sheath is noted. The [place]-Jose catheter has been removed. Endotracheal tube and [...] JEFFREY Transcribed Date and Time: 02/28/2019 6:53 [facility] Incoming Radiology Results From [facility] - 02/28/2019 7:25 AM EST Patient Name: CHRISTY FRANCIS ---Diagnostic Radiology--- Exam Date/Time 02/28/2019 07:24:40 EST Exam CR Chest Portable Ordering Physician GRANT TAYLOR Accession Number [id number] CPT4 Codes 37648 () Reason For Exam POST OPEN HEART Report CHEST - PORTABLE: CLINICAL INDICATION: Respiratory distress for follow up TECHNIQUE: Portable AP COMPARISON: One day ago FINDINGS: Life support devices: Right jugular venous sheath is noted. The [place]-Jose catheter has been removed. Endotracheal tube and [...] JEFFREY Transcribed Date and Time: 02/28/2019 6:53 [facility], [facility] Arterial Blood Gaseson 02-27 CO2 [Moles/Vol] 22.3 mmol/L Low 23.0-27.0 [facility] Comment on above: Performed By: #### H AUSTIN CMP3M #### [facility] [address] [place], [place] HCO3 (Bld) [Moles/Vol] 20.8 mmol/L Low 21.0-25.0 [facility] Comment on above: Performed By: #### H AUSTIN CMP3M #### [address] [place] Hemoglobin (Bld) [Mass/Vol] 10.4 g/dL Normal ScreenOnly [facility] Comment on above: Performed By: #### H AUSTIN CMP3M #### [address] [place] Oxygen (Bld) [Partial pressure] 270.6 mm[Hg] High 80.0-100.0 [facility] Comment on above: Performed By: #### Papito AVILA CMP3M #### [address] [place] Oxygen saturation in Blood 98.8 % Normal 95.0-100.0 [facility] Comment on above: Performed By: #### [place] [place] CMP3M #### [address] [place], [place] pCO2 46.0 mm[Hg] High 35.0-45.0 [facility] Comment on above: Performed By: #### Papito AV[place] CMP3M #### [place] [address] [place], [place] pH (Bld) 7.274 Low 7.350-7.450 [facility] Comment on above: Performed By: #### H AUSTIN CMP3M #### [place] [address] [place], [place] Std Base Excess -5.8 mmol/L Low -3.0-3.0 [facility] Comment on above: Performed By: #### Papito AVILA CMP3M #### [address] [address] [place], [place] FIO2 100% Normal [facility] Comment on above: Performed By: #### Papito AVILA CMP3M #### [facility] [address] [place], [place] Basic Metabolic Panelon 11- Calcium [Mass/Vol] 9.7 mg/dL Normal 8.4-10.4 [facility] Comment on above: Performed By: #### B GLU #### [address] [place] Glucose [Mass/Vol] 164 mg/dL High 70-100 [facility] Comment on above: Performed By: #### B GLU #### [address] [place], [place] Anion gap [Moles/Vol] 13 Normal [facility] Comment on above: Performed By: #### B GLU #### [address] [address] [place], [place] CO2 [Moles/Vol] 18 mmol/L Low 22-30 [facility] Comment on above: Performed By: #### B GLU #### [address] [place] Creatinine [Mass/Vol] 1.13 mg/dL Normal 0.52-1.25 [facility] Comment on above: Performed By: #### B GLU #### [address] [place], [place] GFR/1.73 sq M predicted among blacks MDRD (S/P/Bld) [Vol rate/Area] 57.9 mL/min/{1.73_m2} Normal >60 [facility] [facility] Comment on above: Performed By: #### B GLU #### [address] [place], [place] GFR/1.73 sq M predicted among non-blacks MDRD (S/P/Bld) [Vol rate/Area] 47.7 mL/min/{1.73_m2} Normal >60 [facility] Comment on above: Result Comment: Sour ce- MDRD equation with creatinine calibration to IDMS(NKDEP) eGFR not recommended for drug dose adjustment Performed By: #### B GLU #### [address] [address], [place] Urea nitrogen [Mass/Vol] 24 mg/dL High 7-20 [facility] Comment on above: Performed By: #### B GLU #### [facility] [address] [place], [place] Chloride [Moles/Vol] 110 mmol/L High 98-107 [facility] Comment on above: Performed By: #### B GLU #### [facility] [address] [place], [place] Potassium [Moles/Vol] 4.0 mmol/L Normal 3.5-5.1 [facility] Comment on above: Performed By: #### B GLU #### [facility] [address] [place], [place] Sodium [Moles/Vol] 141 mmol/L Normal 135-145 [facility] Comment on above: Performed By: #### B GLU #### [facility] [address] [place], [place] Anion gap [Moles/Vol] 13 mmol/L [place], [place] Calcium [Mass/Vol] 9.7 mg/dL 8.4 - 10. 4 mg/dL [place], [place] Chloride [Moles/Vol] 110 mmol/L High 98 - 10 7 mmol/L [place] CO2 [Moles/Vol] 18 mmol/L Low 22 - 30 mmol/L [place] Creatinine [Mass/Vol] 1.13 mg/dL 0.52 - 1.25 mg/dL [place] EGFR IF NonAfrican [place] 47.7 mL/min >60 [place] Comment on above: Source- MDRD equatio n with creatinine calibration to IDMS(NKDEP) eGFR not recommended for drug dose adjustment GFR/1.73 sq M predicted among blacks MDRD (S/P/Bld) [Vol rate/Area] 57.9 mL/min/{1.73_m2} >60 [place] Glucose [Mass/Vol] 164 mg/dL High 70 - 100 mg/dL [place] Potassium [Moles/Vol] 4.0 mmol/L 3.5 - 5.1 mmol/L [facility], [place] Sodium [Moles/Vol] 141 mmol/L 135 - 145 mmol/L [facility], [place] Urea nitrogen [Mass/Vol] 24 mg/dL High 7 - 20 mg/dL [facility], [place] Calcium [Mass/Vol] 10.7 mg/dL High 8.4-10.4 [facility] Comment on above: Performed By: #### B GLU #### [facility] [address] [place], [place] Glucose [Mass/Vol] 160 mg/dL High 70-100 [facility] Comment on above: Performed By: #### B GLU #### [address] [address] [place], [place] Urea nitrogen [Mass/Vol] 25 mg/dL High 7-20 [facility] Comment on above: Performed By: #### B GLU #### [address] [place], [place] Anion gap [Moles/Vol] 12 Normal [facility] Comment on above: Performed By: #### B GLU #### [place] [address] [place] CO2 [Moles/Vol] 19 mmol/L Low 22-30 [facility] Comment on above: Performed By: #### B GLU #### [address] [place] Creatinine [Mass/Vol] 1.17 mg/dL Normal 0.52-1.25 [facility] Comment on above: Performed By: #### B GLU #### [facility] [address] [place], [place] GFR/1.73 sq M predicted among blacks MDRD (S/P/Bld) [Vol rate/Area] 55.6 mL/min/{1.73_m2} Normal >60 [facility] Comment on above: Performed By: #### B GLU #### [address] [place] [address] GFR/1.73 sq M predicted among non-blacks MDRD (S/P/Bld) [Vol rate/Area] 45.9 mL/min/{1.73_m2} Normal >60 [facility] Comment on above: Result Comment: Sour ce- MDRD equation with creatinine calibration to IDMS(NKDEP) eGFR not recommended for drug dose adjustment Performed By: #### B GLU #### [facility] [address] [place] [address] Chloride [Moles/Vol] 110 mmol/L High 98-107 [facility] Comment on above: Performed By: #### B GLU #### [facility] [address], [place] Potassium [Moles/Vol] 4.2 mmol/L Normal 3.5-5.1 [facility] Comment on above: Performed By: #### B GLU #### [facility] [address] [place], [place] Sodium [Moles/Vol] 140 mmol/L Normal 135-145 [facility] Comment on above: Performed By: #### B GLU #### [facility] [address] [place], [place] Anion gap [Moles/Vol] 12 mmol/L [facility] [place] Calcium [Mass/Vol] 10.7 mg/dL High 8.4 - 10. 4 mg/dL [facility], [place] Chloride [Moles/Vol] 110 mmol/L High 98 - 10 7 mmol/L [facility], [place] CO2 [Moles/Vol] 19 mmol/L Low 22 - 30 mmol/L [place] Creatinine [Mass/Vol] 1.17 mg/dL 0.52 - 1.25 mg/dL [facility], [place] EGFR IF NonAfrican [place] 45.9 mL/min >60 [place] Comment on above: Source- MDRD equatio n with creatinine calibration to IDMS(NKDEP) eGFR not recommended for drug dose adjustment GFR/1.73 sq M predicted among blacks MDRD (S/P/Bld) [Vol rate/Area] 55.6 mL/min/{1.73_m2} >60 [facility], [place] Glucose [Mass/Vol] 160 mg/dL High 70 - 100 mg/dL [facility], [place] Potassium [Moles/Vol] 4.2 mmol/L 3.5 - 5.1 mmol/L [place] Sodium [Moles/Vol] 140 mmol/L 135 - 145 mmol/L [place] Urea nitrogen [Mass/Vol] 25 mg/dL High 7 - 20 mg/dL [place] Calcium [Mass/Vol] 9.6 mg/dL Normal 8.4-10.4 [facility] Comment on above: Performed By: #### Papito AVILA CMP3M #### [facility] [address] [place], [place] Glucose [Mass/Vol] 233 mg/dL High 70-100 [facility] Comment on above: Performed By: #### Papito AVILA CMP3M #### [address] [address] [place], [place] Urea nitrogen [Mass/Vol] 32 mg/dL High 7-20 [facility] Comment on above: Performed By: #### Papito AVILA CMP3M #### [place] [address] Anion gap [Moles/Vol] 12 Normal [facility] Comment on above: Performed By: #### Papiot AVILA CMP3M #### [place] CO2 [Moles/Vol] 24 mmol/L Normal 22-30 [facility] Comment on above: Performed By: #### Papito AVILA CMP3M #### [place] [address] [place] Creatinine [Mass/Vol] 1.05 mg/dL Normal 0.52-1.25 [facility] Comment on above: Performed By: #### Papito AVILA CMP3M #### [place] [address] [place] GFR/1.73 sq M predicted among blacks MDRD (S/P/Bld) [Vol rate/Area] mL/min/{1.73_m2} Normal >60 [facility] Comment on above: Performed By: #### Papito AVILA CMP3M #### [facility] [address] [place] [address] GFR/1.73 sq M predicted among non-blacks MDRD (S/P/Bld) [Vol rate/Area] 52.0 mL/min/{1.73_m2} Normal >60 [facility] Comment on above: Result Comment: Sour ce- MDRD equation with creatinine calibration to IDMS(NKDEP) eGFR not recommended for drug dose adjustment Performed By: #### Papito AVILA CMP3M #### [facility] [address] [place] [address] Chloride [Moles/Vol] 103 mmol/L Normal 98-107 [facility] Comment on above: Performed By: #### Papito AVILA CMP3M #### [address] [place] [address] Potassium [Moles/Vol] 4.7 mmol/L Normal 3.5-5.1 [facility] Comment on above: Performed By: #### Papito AVILA CMP3M #### [address] [place] [address] Sodium [Moles/Vol] 138 mmol/L Normal 135-145 [facility] Comment on above: Performed By: #### Papito AVILA CMP3M #### [address] [address] [place] [address] Basic Metabolic Panel w/ Ref oneil to MGon 02-27-2019 Anion gap [Moles/Vol] 12 mmol/L [place] Calcium [Mass/Vol] 9.6 mg/dL 8.4 - 10. 4 mg/dL [place] Chloride [Moles/Vol] 103 mmol/L 98 - 10 7 mmol/L [place] CO2 [Moles/Vol] 24 mmol/L 22 - 30 mmol/L [place] Creatinine [Mass/Vol] 1.05 mg/dL 0.52 - 1.25 mg/dL [place] EGFR IF NonAfrican [place] 52.0 mL/min >60 [place] Comment on above: Source- MDRD equatio n with creatinine calibration to IDMS(NKDEP) eGFR not recommended for drug dose adjustment GFR/1.73 sq M predicted among blacks MDRD (S/P/Bld) [Vol rate/Area] mL/min/{1.73_m2} >60 mL/min [place] Glucose [Mass/Vol] 233 mg/dL High 70 - 100 mg/dL [place] Interpretation and review of laboratory results Abnormal [place] Potassium [Moles/Vol] 4.7 mmol/L 3.5 - 5.1 mmol/L [place] Sodium [Moles/Vol] 138 mmol/L 135 - 145 mmol/L [place] Urea nitrogen [Mass/Vol] 32 mg/dL High 7 - 20 mg/dL [place] Test Performed by [address] [address] [place] Blood Gas, Arterialon 2018 Base Excess, Arterial -5.8 mmol/L Low -3 - 3 mmol/L [place] HCO3, Arterial 20.8 mmol/L Low 21 - 25 mmol/L [place] Hemoglobin (Bld) [Mass/Vol] 10.4 g/dL ScreenOnly [place] Oxygen saturation in Blood 98.8 % 95 - 100 % [place] pCO2, Arterial 46.0 mm[Hg] High 35 - 45 mm[Hg] [place] pH, Arterial 7.274 Low [place] pO2, Arterial 270.6 mm[Hg] High 80 - 100 mm[Hg] [place] Sodium [Moles/Vol] 100% [place] TCO2, Arterial 22.3 mmol/L Low 23 - 27 mmol/L [place] CBCon 02-27-2019 Erythrocyte distribution width (RBC) [Ratio] 13.0 % 11.5 - 14.5 % [place] Hematocrit (Bld) [Volume fraction] 34.0 % Low 35 - 47 % [place] Hemoglobin (Bld) [Mass/Vol] 11.2 g/dL Low 11.7 - 16 g/dL [place] Interpretation and review of laboratory results Abnormal [place] MCH (RBC) [Entitic mass] 30.3 pg 26 - 34 pg [place] MCHC (RBC) [Mass/Vol] 32.9 % 32 - 36 % [place] MCV (RBC) [Entitic vol] 92.1 fL 79 - 98 fL [place] Platelet mean volume (Bld) [Entitic vol] 9.9 fL 7.4 - 10.4 fL [place] Platelets (Bld) [#/Vol] 143 10*3/uL 140 - 440 10*3/uL [place] RBC (Bld) [#/Vol] 3.69 10*6/uL Low 3.8 - 5.2 10*6/uL [place] WBC (Bld) [#/Vol] 16.7 10*3/uL High 3.6 - 10.7 10*3/uL [place] Test Performed by [facility], [address] [place] [address] [place] Erythrocyte distribution width (RBC) [Ratio] 12.9 % 11.5 - 14.5 % [place] Hematocrit (Bld) [Volume fraction] 29.0 % Low 35 - 47 % [place] Hemoglobin (Bld) [Mass/Vol] 9.8 g/dL Low 11.7 - 16 g/dL [place] Interpretation and review of laboratory results Abnormal [place] MCH (RBC) [Entitic mass] 31.1 pg 26 - 34 pg [place] MCHC (RBC) [Mass/Vol] 33.8 % 32 - 36 % [place] MCV (RBC) [Entitic vol] 91.9 fL 79 - 98 fL [place] Platelet mean volume (Bld) [Entitic vol] 9.7 fL 7.4 - 10.4 fL [place] Platelets (Bld) [#/Vol] 144 10*3/uL 140 - 440 10*3/uL [facility] [place] RBC (Bld) [#/Vol] 3.15 10*6/uL Low 3.8 - 5.2 10*6/uL [facility], [place] WBC (Bld) [#/Vol] 16.4 10*3/uL High 3.6 - 10.7 10*3/uL [facility], [place] Test Performed by [facility], [address] [place] [address] [facility], [place] CR Chest Portableon 02-28-20 19 CR Chest Portable Patient Name: CHRISTY FRANCIS Diagnostic Radiology Exam Date/Time 02/27/2019 16:56:34 EST Exam CR Chest Portable Ordering Physician GRANT TAYLOR Accession Number [id number] CPT4 Codes 94391 () Reason For Exam ETT placement Report CHEST PORTABLE: Indication: Inpatient; endotracheal tube placement Views: Portable frontal Comparison: 02/23/2019 Time: 16:42 on 02/27/2019 FINDINGS: Interval intubation with the endotracheal tube at the az, recommend repositioning and retraction. New right upper lung atelectasis/collapse. An enteric tube is in place with distal tip below the hemidiaphragm but excluded from [id number]. Interval placement of a right internal jugular [place]-Jose catheter with tip overlying the right main [...] Transcribed Date and Time: 02/27/2019 5:56 Normal [facility] CULTURE STAPH AUREUSon 02-27 CULTURE STAPH AUREUS CULTURE STAPH AUREU S --> Status: F No Staphylococcus aureus isolated. Normal [facility] Comment on above: Order Comment: Speci men Source Comment:Nasal Performed By: #### H MEGHNA AVILA3M #### [facility] [address] [place] [address] CULTURE, STAPH AUREUSon 02-17 CULTURE, STAPHYLOCOCCUS SCREEN No Staphylococcus aureus isolated. [facility] Test Performed by [facility], [address] [place] [address] Specimen Source Comment:Nasal [facility], [facility] Calcium, Ionizedon 9 Ionized Ca 5.50 mg/dL High 4.3 - 5.2 mg/dL [email or web address] [place] pH (Bld) 7.27 [pH] Low [email or web address] [place] Calcium,Ionizedon 02-27-2019 Ionized Ca,Measured 5.50 mg/dL High 4.30-5.20 [facility] Comment on above: Performed By: #### H MEGHNA AVILA3M #### [facility] [address] [place] [address] pH, Ionized Calcium 7.27 Low 7.31-7.46 [facility] Comment on above: Performed By: #### H MEGHNA AVILA3M #### [address] [address] Echo 2D/3D DONNELL w/wo Contrast on 02-27-2019 Echo 2D/3D DONNELL w/wo Contrast Patient Name: CHRISTY FRANCIS Ultrasound Exam Date/Time 02/27/2019 13:12:30 EST Exam Echo 2D/3D DONNELL w/wo Contrast Ordering Physician CITLALY CARMONA ELLEN E Accession Number [id number] Reason For Exam Surgery Report TRANSESOPHAGEAL ECHOCARDIOGRAM Intraoperative-Pre Pump Only PATIENT: Christy Francis STUDY DATE: 02/27/2019 : 1950 AGE: 69 HT/WT: 154.9 cm (61 80 kg in) (176 lb) GENDER: F BP: 98 / 57 LOCATION: [facility] PATIENT Inpatient [facility] STATUS: *ORDERING PHYSICIAN: * Ronda Carmona *READING PHYSICIAN: * Michi Dewitt, *BUSINESS PLANNING MANAGER: * Janice Trivedi MD [facility] INDICATIONS: CABG. CONCLUSIONS SUMMARY: 1. Left [...] 8:47 am Signed by: MICHI DEWITT Normal [facility] Glucose,Bedsideon 02-27-2019 Glucose [Mass/Vol] 180 mg/dL High 70-100 [facility] Comment on above: Result Comment: Test performed by glucose meter. Results may be 10%-15% lower than serum/plasma values. (CLIA ID [id number]) Performed By: #### B GLU #### [address] [address] Glucose [Mass/Vol] 181 mg/dL High 70-100 [facility] Comment on above: Result Comment: Test performed by glucose meter. Results may be 10%-15% lower than serum/plasma values. (CLIA ID [id number]) Performed By: #### B GLU #### [facility] [address] [place] [address] Glucose [Mass/Vol] 179 mg/dL High [address] Comment on above: Result Comment: Test performed by glucose meter. Results may be 10%-15% lower than serum/plasma values. (CLIA ID [id number]) Performed By: #### B GLU #### [address] [address] [place] [address] Glucose [Mass/Vol] 148 mg/dL High 70-100 [facility] Comment on above: Result Comment: Test performed by glucose meter. Results may be 10%-15% lower than serum/plasma values. (CLIA ID [id number]) Performed By: #### B GLU #### [address] [place] [address] Glucose [Mass/Vol] 139 mg/dL High [address] Comment on above: Result Comment: Test performed by glucose meter. Results may be 10%-15% lower than serum/plasma values. (CLIA ID [id number]) Performed By: #### B GLU #### [facility] [place] [address] [place] [address] Glucose [Mass/Vol] 233 mg/dL High [address] Comment on above: Result Comment: Test performed by glucose meter. Results may be 10%-15% lower than serum/plasma values. (CLIA ID [id number]) Performed By: #### H EMOG CMP3M #### [facility] [place] [address] [place] [address] Glucose [Mass/Vol] 299 mg/dL High [address] Comment on above: Result Comment: Test performed by glucose meter. Results may be 10%-15% lower than serum/plasma values. (CLIA ID [id number]) Performed By: #### H EMOG CMP3M #### [facility] [place] [address] [place] [address] Hemogramon 02-27-2019 Erythrocyte distribution width (RBC) [Ratio] 13.0 % Normal 11.5-14.5 [facility] Comment on above: Performed By: #### B GLU #### [facility] [address], [place] Hematocrit (Bld) [Volume fraction] 34.0 % Low 35.0-47.0 [facility] Comment on above: Performed By: #### B GLU #### [place] [place] Hemoglobin (Bld) [Mass/Vol] 11.2 g/dL Low 11.7-16.0 [facility] Comment on above: Performed By: #### B GLU #### [place] [address] [place] MCH (RBC) [Entitic mass] 30.3 pg Normal 26.0-34.0 [facility] Comment on above: Performed By: #### B GLU #### [place] [place] MCHC (RBC) [Mass/Vol] 32.9 % Normal 32.0-36.0 [facility] Comment on above: Performed By: #### B GLU #### [place] [place] MCV (RBC) [Entitic vol] 92.1 fL Normal 79.0-98.0 [facility] Comment on above: Performed By: #### B GLU #### [place] [address] [place] Platelet mean volume (Bld) [Entitic vol] 9.9 fL Normal 7.4-10.4 [facility] Comment on above: Performed By: #### B GLU #### [place] [place] Platelets (Bld) [#/Vol] 143 10*3/uL Normal 140-440 [facility] Comment on above: Performed By: #### B GLU #### [place] [address] [place] RBC (Bld) [#/Vol] 3.69 10*6/uL Low 3.80-5.20 [facility] Comment on above: Performed By: #### B GLU #### [address] WBC (Bld) [#/Vol] 16.7 10*3/uL High 3.6-10.7 [facility] Comment on above: Performed By: #### B GLU #### [address] [address] [place] Erythrocyte distribution width (RBC) [Ratio] 12.9 % Normal 11.5-14.5 [facility] Comment on above: Performed By: #### Papito AVILA CMP3M #### [address] Hematocrit (Bld) [Volume fraction] 29.0 % Low 35.0-47.0 [facility] Comment on above: Performed By: #### Papito AVILA CMP3M #### [address] [address] [address] [place], [place] Hemoglobin (Bld) [Mass/Vol] 9.8 g/dL Low 11.7-16.0 [facility] Comment on above: Performed By: #### Papito AVILA CMP3M #### [address] MCH (RBC) [Entitic mass] 31.1 pg Normal 26.0-34.0 [facility] Comment on above: Performed By: #### Papito AVILA CMP3M #### [place] [address] [place] MCHC (RBC) [Mass/Vol] 33.8 % Normal 32.0-36.0 [facility] Comment on above: Performed By: #### Papito AVILA CMP3M #### [address] MCV (RBC) [Entitic vol] 91.9 fL Normal 79.0-98.0 [facility] Comment on above: Performed By: #### Papito AVILA CMP3M #### [place] [place] Platelet mean volume (Bld) [Entitic vol] 9.7 fL Normal 7.4-10.4 [facility] Comment on above: Performed By: #### H AUSTIN CMP3M #### [place] [place] Platelets (Bld) [#/Vol] 144 10*3/uL Normal 140-440 [facility] Comment on above: Performed By: #### H AUSTIN CMP3M #### [place] [address] [place] RBC (Bld) [#/Vol] 3.15 10*6/uL Low 3.80-5.20 [facility] Comment on above: Performed By: #### H AUSTIN CMP3M #### [place] [place] WBC (Bld) [#/Vol] 16.4 10*3/uL High 3.6-10.7 [facility] Comment on above: Performed By: #### Papito AVILA CMP3M #### [place] [place] Magnesiumon 02-27-2019 Magnesium [Mass/Vol] 2.4 mg/dL High 1.6-2.3 [facility] Comment on above: Performed By: #### B GLU #### [place] [address] [place] Magnesium [Mass/Vol] 2.4 mg/dL High 1.6 - 2 .3 mg/dL [place] Magnesium [Mass/Vol] 3.2 mg/dL High 1.6-2.3 [facility] Comment on above: Performed By: #### B GLU #### [place] [place] Magnesium [Mass/Vol] 3.2 mg/dL High 1.6 - 2 .3 mg/dL [place] Otheron 02-27-2019 Interpretation and review of laboratory results Abnormal [place] Test Performed by [place] [address] [place] [address] [facility] Interpretation and review of laboratory results Abnormal [facility] [place] Test Performed by [facility], [address] [place] [address] [facility] Interpretation and review of laboratory results Abnormal [facility] [place] Test Performed by [facility], [address] [place] [address] [facility] [place] POCT Glucoseon 02-27-2019 Glucose [Mass/Vol] 152 mg/dL High 70 - 100 mg/dL [facility] [place] Comment on above: Test performed by gl ucose meter. Results may be 10%-15% lower than serum/plasma values. (CLIA ID [id number]) Interpretation and review of laboratory results Abnormal [facility] [place] Test Performed by [facility], [address] [place] [address] [facility] [place] Glucose [Mass/Vol] 156 mg/dL High 70 - 100 mg/dL [facility] [place] Comment on above: Test performed by gl ucose meter. Results may be 10%-15% lower than serum/plasma values. (CLIA ID [id number]) Interpretation and review of laboratory results Abnormal [facility] [place] Test Performed by [facility], [address] [place] [address] [facility] [place] Glucose [Mass/Vol] 180 mg/dL High 70 - 100 mg/dL [facility] [place] Comment on above: Test performed by gl ucose meter. Results may be 10%-15% lower than serum/plasma values. (CLIA ID [id number]) Interpretation and review of laboratory results Abnormal [facility] [place] Test Performed by [facility], [address] [place] [address] [facility] Glucose [Mass/Vol] 181 mg/dL High 70 - 100 mg/dL [facility] [place] Comment on above: Test performed by gl ucose meter. Results may be 10%-15% lower than serum/plasma values. (CLIA ID [id number]) Interpretation and review of laboratory results Abnormal [facility] [place] Test Performed by [facility], [address] [place] [address] [facility] [place] Glucose [Mass/Vol] 179 mg/dL High 70 - 100 mg/dL [facility] [place] Comment on above: Test performed by gl ucose meter. Results may be 10%-15% lower than serum/plasma values. (CLIA ID [id number]) Interpretation and review of laboratory results Abnormal [facility] [place] Test Performed by [facility], [address] [place] [address] [facility] [place] Glucose [Mass/Vol] 148 mg/dL High 70 - 100 mg/dL [facility] [place] Comment on above: Test performed by gl ucose meter. Results may be 10%-15% lower than serum/plasma values. (CLIA ID [id number]) Interpretation and review of laboratory results Abnormal [facility] [place] Test Performed by [facility], [address] [place] [address] [facility] [place] Glucose [Mass/Vol] 139 mg/dL High 70 - 100 mg/dL [facility] [place] Comment on above: Test performed by gl ucose meter. Results may be 10%-15% lower than serum/plasma values. (CLIA ID [id number]) Interpretation and review of laboratory results Abnormal [facility] [place] Test Performed by [facility], [address] [place] [address] [facility] [place] Glucose [Mass/Vol] 233 mg/dL High 70 - 100 mg/dL [facility] [place] Comment on above: Test performed by gl ucose meter. Results may be 10%-15% lower than serum/plasma values. (CLIA ID [id number]) Interpretation and review of laboratory results Abnormal [facility] [place] Test Performed by [facility], [address] [place] [address] [facility] [place] Glucose [Mass/Vol] 299 mg/dL High 70 - 100 mg/dL [facility] [place] Comment on above: Test performed by gl ucose meter. Results may be 10%-15% lower than serum/plasma values. (CLIA ID [id number]) Interpretation and review of laboratory results Abnormal [place] Test Performed by [facility], [address] [place] [address] [place] Phosphoruson 02-27-2019 Phosphate [Mass/Vol] 3.3 mg/dL Normal 2.5-4.5 [facility] Comment on above: Performed By: #### B GLU #### [address] [address] Phosphate [Mass/Vol] 3.3 mg/dL 2.5 - 4 .5 mg/dL [place] Protime AND APTTon 9 INR Coag (PPP) [Relative time] 1.3 High 0.9-1.1 [facility] Comment on above: Result Comment: Gael mmended [...] Performed By: #### Papito AVILA CMP3M #### [address] [address] PT Coag (PPP) [Time] 13.5 s High 9.0-12.0 [facility] Comment on above: Result Comment: . Performed By: #### Papito AVILA CMP3M #### [address] [address] aPTT Coag (Bld) [Time] 21.2 s Normal 20.0-30.5 [facility] Comment on above: Result Comment: NOTE : The therapeutic time for Heparin anticoagulation, based on Xa activity inhibition, is an APTT of 46-80 seconds. Performed By: #### Papito AVILA CMP3M #### [place] [address] [place] [address] Protime/INR & PTTon 02-28-20 aPTT Coag (Bld) [Time] 21.2 s 20 - 30.5 s [place], [place] Comment on above: NOTE: The therapeuti c time for Heparin anticoagulation, based on Xa activity inhibition, is an APTT of 46-80 seconds. INR Coag (PPP) [Relative time] 1.3 {INR} [place], [place] Comment on above: Recommended Anticoag ulant [...] Interpretation and review of laboratory results Abnormal [place], [place] PT Coag (PPP) [Time] 13.5 s High 9 - 12 s [place], [place] Comment on above: . Test Performed by [address] [address] [place], [place] XR CHEST PORTABLEon 02-28-20 Patient Name: CHRISTY FRANCIS ---Diagnostic Radiology--- Exam Date/Time 02/27/2019 16:56:34 EST Exam CR Chest Portable Ordering Physician GRANT TAYLOR Accession Number [id number] CPT4 Codes 64132 () Reason For Exam ETT placement Report CHEST PORTABLE: Indication: Inpatient; endotracheal tube placement Views: Portable frontal Comparison: 02/23/2019 Time: 16:42 on 02/27/2019 FINDINGS: Interval intubation with the endotracheal tube at the az, recommend repositioning and retraction. New right upper lung atelectasis/collapse. An enteric tube is in place with distal tip below the hemidiaphragm but excluded from heljy-jo-tarm. Interval placement of a right internal jugular Vancouver-Jose catheter with tip overlying the right main [...] Dictated: 02/27/2019 5:56 pm Dictating Physician: MD BURIDCK JENNIFER R Signed Date and Time: 02/27/2019 6:02 pm Signed by: MD BURDICK JENNIFER R Transcribed Date and Time: 02/27/2019 5:56 [facility], [place], [facility] Incoming Radiology Results From [facility] - 02/27/2019 6:03 PM EST Patient Name: CHRISTY FRANCIS ---Diagnostic Radiology--- Exam Date/Time 02/27/2019 16:56:34 EST Exam CR Chest Portable Ordering Physician GRANT TAYLOR Accession Number [id number] CPT4 Codes 35978 () Reason For Exam ETT placement Report CHEST PORTABLE: Indication: Inpatient; endotracheal tube placement Views: Portable frontal Comparison: 02/23/2019 Time: 16:42 on 02/27/2019 FINDINGS: Interval intubation with the endotracheal tube at the az, recommend repositioning and retraction. New right upper lung atelectasis/collapse. An enteric tube is in place with distal tip below the hemidiaphragm but excluded from zxhee-ep-ihac. Interval placement of a right internal jugular Vancouver-Jose catheter with tip overlying the right main [...] R Transcribed Date and Time: 02/27/2019 5:56 [facility], [place] Basic Metabolic Panelon 02-17 Calcium [Mass/Vol] 9.2 mg/dL Normal 8.4-10.4 [facility] Comment on above: Performed By: #### Papito AVILA CMP3M #### [facility] [address], [place] Glucose [Mass/Vol] 317 mg/dL High 70-100 [facility] Comment on above: Performed By: #### H AUSTIN CMP3M #### [facility] [address], [place] Anion gap [Moles/Vol] 10 Normal [facility] Comment on above: Performed By: #### Papito AVILA CMP3M #### [facility] [address], [place] CO2 [Moles/Vol] 21 mmol/L Low 22-30 [facility] Comment on above: Performed By: #### H AUSTIN CMP3M #### [facility] [address], [place] Creatinine [Mass/Vol] 1.14 mg/dL Normal 0.52-1.25 [facility] Comment on above: Performed By: #### Papito AVILA CMP3M #### [facility] [address] [place], [place] GFR/1.73 sq M predicted among blacks MDRD (S/P/Bld) [Vol rate/Area] 57.3 mL/min/{1.73_m2} Normal >60 [facility] Comment on above: Performed By: #### H AUSTIN CMP3M #### [facility] [address], [place] GFR/1.73 sq M predicted among non-blacks MDRD (S/P/Bld) [Vol rate/Area] 47.2 mL/min/{1.73_m2} Normal >60 [facility] Comment on above: Result Comment: Sour ce- MDRD equation with creatinine calibration to IDMS(NKDEP) eGFR not recommended for drug dose adjustment Performed By: #### Papito AVILA CMP3M #### [facility] [address] [place] [address] Urea nitrogen [Mass/Vol] 30 mg/dL High 7-20 [facility] Comment on above: Performed By: #### Papito AVILA CMP3M #### [facility] [address] [place] [address] Chloride [Moles/Vol] 105 mmol/L Normal 98-107 [facility] Comment on above: Performed By: #### Papito AVILA CMP3M #### [place] [address] [place] [address] Potassium [Moles/Vol] 5.1 mmol/L Normal 3.5-5.1 [facility] Comment on above: Performed By: #### Papito AVILA CMP3M #### [facility] [address] [place] [address] Sodium [Moles/Vol] 136 mmol/L Normal 135-145 [facility] Comment on above: Performed By: #### Papito AVILA CMP3M #### [address] [place] [address] Basic Metabolic Panel w/ Ref oneil to MGon 02-26-2019 Anion gap [Moles/Vol] 10 mmol/L [place], [place] Calcium [Mass/Vol] 9.2 mg/dL 8.4 - 10. 4 mg/dL [place] Chloride [Moles/Vol] 105 mmol/L 98 - 10 7 mmol/L [place] CO2 [Moles/Vol] 21 mmol/L Low 22 - 30 mmol/L [place] Creatinine [Mass/Vol] 1.14 mg/dL 0.52 - 1.25 mg/dL [place] EGFR IF NonAfrican Argentine 47.2 mL/min >60 [place] Comment on above: Source- MDRD equatio n with creatinine calibration to IDMS(NKDEP) eGFR not recommended for drug dose adjustment GFR/1.73 sq M predicted among blacks MDRD (S/P/Bld) [Vol rate/Area] 57.3 mL/min/{1.73_m2} >60 [place] Glucose [Mass/Vol] 317 mg/dL High 70 - 100 mg/dL [place] Interpretation and review of laboratory results Abnormal [place] Potassium [Moles/Vol] 5.1 mmol/L 3.5 - 5.1 mmol/L [place] Sodium [Moles/Vol] 136 mmol/L 135 - 145 mmol/L [place] Urea nitrogen [Mass/Vol] 30 mg/dL High 7 - 20 mg/dL [place] Test Performed by [facility], [address] [place] [address] [place], [place] CBCon 02-26-2019 Erythrocyte distribution width (RBC) [Ratio] 13.1 % 11.5 - 14.5 % [place] Hematocrit (Bld) [Volume fraction] 44.0 % 35 - 47 % [place] Hemoglobin (Bld) [Mass/Vol] 14.9 g/dL 11.7 - 16 g/dL [place] MCH (RBC) [Entitic mass] 30.6 pg 26 - 34 pg [place] MCHC (RBC) [Mass/Vol] 33.9 % 32 - 36 % [place] MCV (RBC) [Entitic vol] 90.3 fL 79 - 98 fL [place], [place] Platelet mean volume (Bld) [Entitic vol] 9.9 fL 7.4 - 10.4 fL [place] Platelets (Bld) [#/Vol] 205 10*3/uL 140 - 440 10*3/uL [place] RBC (Bld) [#/Vol] 4.88 10*6/uL 3.8 - 5.2 10*6/uL [place] WBC (Bld) [#/Vol] 8.3 10*3/uL 3.6 - 10.7 10*3/uL [facility] [place], [place] Test Performed by [facility], [address] [facility] [place] [address] [facility] [place], [place] Complete Urinalysison 2018 Appearance (U) Clear Normal Clear [facility] Comment on above: Performed By: #### Papito AVILA CMP3M #### [address] Bacteria LM.HPF (Urine sed) [#/Area] Negative Normal Negative [facility] Comment on above: Performed By: #### Papito AVILA CMP3M #### [address] [address] [place], [place] Bilirubin,Urine Negative Normal Negative [facility] Comment on above: Performed By: #### Papito AVILA CMP3M #### [address] Cast, Hyaline Negative Normal Negative [facility] Comment on above: Performed By: #### Papito AVILA CMP3M #### [address] Color (U) Light-Yellow Normal Lt. Yellow [facility] Comment on above: Performed By: #### Papito AVILA CMP3M #### [address] Glucose Ql (U) 300 mg/dL Normal Normal (<70) [facility] Comment on above: Performed By: #### Papito AVILA CMP3M #### [address] [address] [place], [place] Ketone,Urine Negative Normal Negative [facility] Comment on above: Performed By: #### H AUSTIN CMP3M #### [address] Leukocytes,Urine 25 Michael/uL Normal Negative [facility] Comment on above: Performed By: #### Papito AVILA CMP3M #### [address] Mucous Threads Few Normal Negative [facility] Comment on above: Performed By: #### Papito AVILA CMP3M #### [address] [address] [place] Nitrites,Urine Negative Normal Negative [facility] Comment on above: Performed By: #### Papito AVILA CMP3M #### [address] [place] Occult Blood,Urine 0.03 mg/dL Normal Negative [facility] Comment on above: Performed By: #### Papito AVILA CMP3M #### [address] [address], [place] pH (U) 5.0 Normal 5.0-8.0 [facility] Comment on above: Performed By: #### H AUSTIN CMP3M #### [address] [address] [place], [place] Protein (U) [Mass/Vol] Negative Normal Negative [facility] Comment on above: Performed By: #### Papito AVILA CMP3M #### [place] [address] [place], [place] RBC LM.HPF (Urine sed) [#/Area] 0 - 2 Normal 0-2 [facility] Comment on above: Performed By: #### H AUSTIN CMP3M #### [address] [address] [place], [place] Specific Cameron,Urine 1.015 Normal 1.005-1.030 [facility] Comment on above: Performed By: #### H AUSTIN CMP3M #### [address] [address] [place], [place] Squamous Epithelial 0 - 2 Normal 3-5 [facility] Comment on above: Performed By: #### H AUSTIN CMP3M #### [address] Urobilinogen,Urine Normal Normal Normal (0-1) [facility] Comment on above: Performed By: #### H EMONicole CMP3M #### [address] [address] [place], [place] WBC LM.HPF (Urine sed) [#/Area] 0 - 2 Normal 0-5 [facility] Comment on above: Performed By: #### H MEGHNA AVILA3Adriana #### [facility] [address] [place] [address] EKG 12 Leadon 02-26-2019 [facility] Incoming Cardiology Results From [facility] - 02/26/2019 9:23 AM EST [facility] Test Date: 2019-02-25 Pat Name: Christy Francis Department: 1A5 Room: [facility] 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1950 Requested By: Order Number: [id number] Reading MD: Keith Ngo Measurements Intervals [place] Rate: 78 P: 52 FL: 150 QRS: -10 QRSD: 86 T: 122 QT: 386 QTc: 440 Interpretive Statements Sinus rhythm LAE, consider biatrial enlargement LVH with secondary repolarization abnormality Electronically Signed On 02-26-2019 9:22:41 EST by Keith Ngo [facility] Test Date: 2019-02-25 Pat Name: Christy Francis Department: 1A5 Room: 1522 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1950 Requested By: Order Number: [id number] Reading MD: Keith Ngo Measurements Intervals [place] Rate: 78 P: 52 FL: 150 QRS: -10 QRSD: 86 T: 122 QT: 386 QTc: 440 Interpretive Statements Sinus rhythm LAE, consider biatrial enlargement LVH with secondary repolarization abnormality Electronically Signed On 02-26-2019 9:22:41 EST by Keith MahanMusic [facility] [place], [place] Glucose,Bedsideon 02-26-2019 Glucose [Mass/Vol] 257 mg/dL High 70-100 [facility] Comment on above: Result Comment: Test performed by glucose meter. Results may be 10%-15% lower than serum/plasma values. (CLIA ID [id number]) Performed By: #### H ANGELY AVILA #### [facility] [address] [place] [address] Glucose [Mass/Vol] 270 mg/dL High 70-100 [facility] Comment on above: Result Comment: Test performed by glucose meter. Results may be 10%-15% lower than serum/plasma values. (CLIA ID [id number]) Performed By: #### H MEGHNA AVILA3M #### [address] Glucose [Mass/Vol] 245 mg/dL High 70-100 [facility] Comment on above: Result Comment: Test performed by glucose meter. Results may be 10%-15% lower than serum/plasma values. (CLIA ID [id number]) Performed By: #### H MEGHNA AVILA3M #### [address] Glucose [Mass/Vol] 316 mg/dL High 70-100 [facility] Comment on above: Result Comment: Test performed by glucose meter. Results may be 10%-15% lower than serum/plasma values. (CLIA ID [id number]) Performed By: #### H MEGHNA AVILA3M #### [address], [place] Hemogramon 02-26-2019 Erythrocyte distribution width (RBC) [Ratio] 13.1 % Normal 11.5-14.5 [facility] Comment on above: Performed By: #### B GLU #### [address] [address] [place] Hematocrit (Bld) [Volume fraction] 44.0 % Normal 35.0-47.0 [facility] Comment on above: Performed By: #### B GLU #### [address] Hemoglobin (Bld) [Mass/Vol] 14.9 g/dL Normal 11.7-16.0 [facility] Comment on above: Performed By: #### B GLU #### [address] [place] MCH (RBC) [Entitic mass] 30.6 pg Normal 26.0-34.0 [facility] Comment on above: Performed By: #### B GLU #### [address] [place] MCHC (RBC) [Mass/Vol] 33.9 % Normal 32.0-36.0 [facility] Comment on above: Performed By: #### B GLU #### [facility] [address], [place] MCV (RBC) [Entitic vol] 90.3 fL Normal 79.0-98.0 [facility] Comment on above: Performed By: #### B GLU #### [facility] [address], [place] Platelet mean volume (Bld) [Entitic vol] 9.9 fL Normal 7.4-10.4 [facility] Comment on above: Performed By: #### B GLU #### [address] [address] [place], [place] Platelets (Bld) [#/Vol] 205 10*3/uL Normal 140-440 [facility] Comment on above: Performed By: #### B GLU #### [address] [address], [place] RBC (Bld) [#/Vol] 4.88 10*6/uL Normal 3.80-5.20 [facility] Comment on above: Performed By: #### B GLU #### [address], [place] WBC (Bld) [#/Vol] 8.3 10*3/uL Normal 3.6-10.7 [facility] Comment on above: Performed By: #### B GLU #### [address], [place] POCT Glucoseon 02-26-2019 Glucose [Mass/Vol] 257 mg/dL High 70 - 100 mg/dL [place] Comment on above: Test performed by ucose meter. Results may be 10%-15% lower than serum/plasma values. (CLIA ID [id number]) Interpretation and review of laboratory results Abnormal [facility], [place] Test Performed by [facility], [address] [place] [address] [facility], [place] Glucose [Mass/Vol] 270 mg/dL High 70 - 100 mg/dL [place], [place] Comment on above: Test performed by gl ucose meter. Results may be 10%-15% lower than serum/plasma values. (CLIA ID [id number]) Interpretation and review of laboratory results Abnormal [employer] [place] Test Performed by [facility], [facility] [place] [address] [facility] [place], [place] Glucose [Mass/Vol] 245 mg/dL High 70 - 100 mg/dL [facility], [place] Comment on above: Test performed by gl ucose meter. Results may be 10%-15% lower than serum/plasma values. (CLIA ID [id number]) Interpretation and review of laboratory results Abnormal [facility] [place], [place] Test Performed by [facility], [facility] [place] [address] [facility] [place], [place] Glucose [Mass/Vol] 316 mg/dL High 70 - 100 mg/dL [facility], [place] Comment on above: Test performed by gl ucose meter. Results may be 10%-15% lower than serum/plasma values. (CLIA ID [id number]) Interpretation and review of laboratory results Abnormal [employer] [place] Test Performed by [facility], [facility] [place] [address] [facility], [place] Prothrombin Timeon 02-26- 9 INR Coag (PPP) [Relative time] 1.0 Normal 0.9-1.1 [facility] Comment on above: Result Comment: Gael mmended [...] prevent Myocardial Infarction Performed By: #### H AUSTIN, CMP3M #### [facility] [address] [place] [address] PT Coag (PPP) [Time] 10.9 s Normal 9.0-12.0 [facility] Comment on above: Result Comment: . Performed By: #### H AUSTIN CMP3M #### [address] [address] Protime-INRon 02-26-2019 INR Coag (PPP) [Relative time] 1.0 {INR} [place] Comment on above: Recommended Anticoag ulant [...] [Time] 10.9 s 9 - 12 s [place] Comment on above: . Test Performed by [facility], [address] [place] [address] TS GELon 02-26-2019 TS GEL ABO Group: A Rh, Gel: POS Antibody Screen Gel: NEG Normal [facility] Comment on above: Performed By: #### H AUSTIN [facility] #### [address] [address] TYPE AND SCREENon 02-26-2019 Sodium [Moles/Vol] Positive [place] Comment on above: Test Performed by [facility], [address] [place] [address] Sodium [Moles/Vol] A [place] Sodium [Moles/Vol] Negative [place] Comment on above: Test Performed by [facility], [address] [place] [address] Test Performed by [id number] [place] [address] Urinalysison 02-26-2019 Appearance (U) Clear Clear NA [place] Bacteria, UA Negative Negative /[HPF] [place] Bilirubin Urine Negative Negative mg/dL [place] Color (U) Light-Yellow Lt. Yellow NA [place] Glucose, Ur 300 mg/dL Normal (<70) [place] Hyaline Casts, UA Negative Negative /[LPF] [place] Ketones Ql (U) Negative Negative mg/dL [place] LEUKOCYTES, UA 25 Negative Michael/uL [place] Mucous Threads Few Negative /[LPF] [place] Nitrite, Urine Negative Negative NA [place] Occult Blood,Urine 0.03 mg/dL Negative [place] pH (U) 5.0 [pH] [place] Protein (U) [Mass/Vol] Negative Negative mg/dL [place] RBC (U) [#/Vol] 0-2 0 - 2 /[HPF] [place] Specific Cameron, Urine 1.015 [place] Squam Epithel, UA 0-2 3 - 5 /[HPF] [place] Urobilinogen, Urine Normal Normal ( 0-1) mg/dL [place] WBC, UA 0-2 0 - 5 /[HPF] [place] Test Performed by [facility], [address] [place] [address] [place] VL ARTERIAL PVR LOWER WO EXE RCISEon 02-26-2019 [facility] Multilevel Lower Extremity Arterial Evaluation Report Ordering Physician: Timmy Basilio MD Technology Administrator: Yamilet Cortes RVT Interpreting Physician: Charlie Solano MD Location: [facility] Indications: PVD. Conclusions 1. Left resting ISIDRO [...] supine position. Images were obtained using a [employer] 2100 vascular ultrasound machine. Arterial pressure indices: [...] signed by Charlie Solano MD 02/26/2019 09:13 [facility]- GABRIEL, Kathie Mathis Incoming Cardiology Results From Vera/Brooke - 02/26/2019 9:13 AM EST [facility] Multilevel Lower Extremity Arterial Evaluation Report Ordering Physician: Timmy Basilio MD Technology Administrator: Yamilet Cortes RVT Interpreting Physician: Charlie Solano MD Location: [facility] Indications: PVD. Conclusions 1. Left resting ISIDRO [...] supine position. Images were obtained using a [employer] 2100 vascular ultrasound machine. Arterial pressure indices: [...] signed by Charlie Solano MD 02/26/2019 09:13 [facility] VL DUP CAROTID BILATERALon 1 04-28-2018 [facility] Cardiology Results From Vera/Brooke - 02/26/2019 9:08 AM EST [facility] Carotid Duplex Report Ordering Physician: Minoo Encinas Technology Administrator: Yamilet Cortes RVT Interpreting Physician: Charlie Solano MD Location: [facility] Indications: Carotid stenosis. Conclusions 1. Mild carotid [...] signed by Charlie Solano MD 02/26/2019 09:08 [employer] [facility]- [place], [facility] Carotid Duplex Report Ordering Physician: Minoo Encinasographer: Yamilet Cortes RVT Interpreting Physician: Charlie Solano MD Location: [facility] Indications: Carotid stenosis. Conclusions 1. Mild carotid [...] signed by Charlie Solano MD 02/26/2019 09:08 [facility] [place], [facility] Pre Op Vein Mappingon [facility] [place] [facility] Bilateral LE Vein Mapping For Bypass Report Ordering Physician: Minoo En[employer] Technology Administrator: Yamilet Cortes RVT Interpreting Physician: Charlie Solano MD Location: [facility] Indications: Pre-op bypass. Conclusions 1. The right great saphenous vein and left great saphenous veinappears patent. 2. Vein sizes as noted below. Study data: Bilateral lower extremity vein mapping. [employer] 2D imaging. Location: Vascular laboratory. Procedure: A vascular evaluation was performed with the patient in the supine position. Images were obtained using a [employer] E9 vascular ultrasound machine. Vein mapping: + [...] signed by Charlie Solano MD 02/26/2019 09:10 [facility], [facility] Incoming Cardiology Results From [facility] - 02/26/2019 9:10 AM EST [facility] Bilateral LE Vein Mapping For Bypass Report Ordering Physician: Minoo En[employer] Technology Administrator: Yamilet Cortes RVT Interpreting Physician: Charlie Solano MD Location: [facility] Indications: Pre-op bypass. Conclusions 1. The right great saphenous vein and left great saphenous veinappears patent. 2. Vein sizes as noted below. Study data: Bilateral lower extremity vein mapping. [employer] 2D imaging. Location: Vascular laboratory. Procedure: A vascular evaluation was performed with the patient in the supine position. Images were obtained using a [employer] E9 vascular ultrasound machine. Vein mapping: + [...] signed by Charlie Solano MD 02/26/2019 09:10 [facility] [place], [place] Complete Urinalysison 2018 Appearance (U) Clear Normal Clear [facility] Comment on above: Performed By: #### B GLU #### [facility] [address] [place] [address] Bacteria LM.HPF (Urine sed) [#/Area] Few Normal Negative [facility] Comment on above: Performed By: #### B GLU #### [facility] [address], [place] Bilirubin,Urine Negative Normal Negative [facility] Comment on above: Performed By: #### B GLU #### [facility] [address], [place] Color (U) Colorless Normal Lt. Yellow [facility] Comment on above: Performed By: #### B GLU #### [facility] [address], [place] Glucose Ql (U) 300 mg/dL Normal Normal (<70) [facility] Comment on above: Performed By: #### B GLU #### [address] [address] [address] [place], [place] Ketone,Urine Negative Normal Negative [facility] Comment on above: Performed By: #### B GLU #### [address] [address] [address] [place], [place] Leukocytes,Urine 75 Michael/uL Normal Negative [facility] Comment on above: Performed By: #### B GLU #### [address] [address] [address] [place], [place] Nitrites,Urine Negative Normal Negative [facility] Comment on above: Performed By: #### B GLU #### [address] [address] [address] [place] Occult Blood,Urine Negative Normal Negative [facility] Comment on above: Performed By: #### B GLU #### [address] [address] [address] [place], [place] pH (U) 5.0 Normal 5.0-8.0 [facility] Comment on above: Performed By: #### B GLU #### [address] [address] [address] [place], [place] Protein (U) [Mass/Vol] Negative Normal Negative [facility] Comment on above: Performed By: #### B GLU #### [address] [address] [address] [place], [place] Specific Cameron,Urine 1.009 Normal 1.005-1.030 [facility] Comment on above: Performed By: #### B GLU #### [facility] [address] [place], [place] Squamous Epithelial 0 - 2 Normal 3-5 [facility] Comment on above: Performed By: #### B GLU #### [facility] [address] [place] [address] Urobilinogen,Urine Normal Normal Normal (0-1) [facility] Comment on above: Performed By: #### B GLU #### [facility] [address] [place], [place] WBC LM.HPF (Urine sed) [#/Area] 6 - 10 Normal 0-5 [facility] Comment on above: Performed By: #### B GLU #### [facility] [address] [place], [place] Glucose,Bedsideon 02-25-2019 Glucose [Mass/Vol] 280 mg/dL High 70-100 [facility] Comment on above: Result Comment: Test performed by glucose meter. Results may be 10%-15% lower than serum/plasma values. (CLIA ID [id number]) Performed By: #### B GLU #### [facility] [address] [place], [place] Glucose [Mass/Vol] 266 mg/dL High 70-100 [facility] Comment on above: Result Comment: Test performed by glucose meter. Results may be 10%-15% lower than serum/plasma values. (CLIA ID [id number]) Performed By: #### B GLU #### [facility] [address], [place] Glucose [Mass/Vol] 219 mg/dL High 70-100 [facility] Comment on above: Result Comment: Test performed by glucose meter. Results may be 10%-15% lower than serum/plasma values. (CLIA ID [id number]) Performed By: #### B GLU #### [facility] [address] [place] [address] Glucose [Mass/Vol] 338 mg/dL High 70-100 [facility] Comment on above: Result Comment: Test performed by glucose meter. Results may be 10%-15% lower than serum/plasma values. (CLIA ID [id number]) Performed By: #### B GLU #### [facility] [address] [place] [address] Glucose [Mass/Vol] 272 mg/dL High 70-100 [facility] Comment on above: Result Comment: Test performed by glucose meter. Results may be 10%-15% lower than serum/plasma values. (CLIA ID [id number]) Performed By: #### B GLU #### [facility] [address] [place] [address] Hemoglobin A1Con 02-25-2019 HbA1c (Bld) [Mass fraction] 249 mg/dL Normal [facility] Comment on above: Performed By: #### B GLU #### [address] [address] [place] [address] HbA1c (Bld) [Mass fraction] 10.3 % High 4.0-5.7 [facility] Comment on above: Result Comment: --Hg bA1C levels may not be accurate in patients who have renal disease, received recent blood transfusions, are anemic, or who have dyshemoglobinemia. Performed By: #### B GLU #### [facility] [address] [address] [place] [address] Hemoglobin A1con 02-25-2019 eAG 249 mg/dL [facility] HbA1c (Bld) [Mass fraction] 10.3 % High 4 - 5.7 % [facility] Comment on above: --HgbA1C levels may not be accurate in patients who have renal disease, received recent blood transfusions, are anemic, or who have dyshemoglobinemia. Interpretation and review of laboratory results Abnormal [email or web address] Test Performed by [facility], [facility] [place] [address] [facility] POCT Glucoseon 02-25-2019 Glucose [Mass/Vol] 280 mg/dL High 70 - 100 mg/dL [facility] Comment on above: Test performed by gl ucose meter. Results may be 10%-15% lower than serum/plasma values. (CLIA ID [id number]) Interpretation and review of laboratory results Abnormal [facility] [place] Test Performed by [facility], [facility] [place] [address] [facility] [place] Glucose [Mass/Vol] 266 mg/dL High 70 - 100 mg/dL [facility] [place] Comment on above: Test performed by gl ucose meter. Results may be 10%-15% lower than serum/plasma values. (CLIA ID [id number]) Interpretation and review of laboratory results Abnormal [facility] [place] Test Performed by [facility], [facility] [place] [address] [facility] [place], [place] Glucose [Mass/Vol] 219 mg/dL High 70 - 100 mg/dL [facility] [place] Comment on above: Test performed by gl ucose meter. Results may be 10%-15% lower than serum/plasma values. (CLIA ID [id number]) Interpretation and review of laboratory results Abnormal [facility] [place] Test Performed by [facility], [facility] [place] [address] [facility], [place] Glucose [Mass/Vol] 338 mg/dL High 70 - 100 mg/dL [facility] [place] Comment on above: Test performed by gl ucose meter. Results may be 10%-15% lower than serum/plasma values. (CLIA ID [id number]) Interpretation and review of laboratory results Abnormal [facility] [place] Test Performed by [facility], [place] [address] [facility], [place] Urinalysison 02-25-2019 Appearance (U) Clear Clear NA [facility] [place] Bacteria, UA Few Negative /[HPF] [facility] [place] Bilirubin Urine Negative Negative mg/dL [facility] [place] Color (U) Colorless Lt. Yellow NA [facility] [place] Glucose, Ur 300 mg/dL Normal (<70) [facility] [place] Ketones Ql (U) Negative Negative mg/dL [facility] [place] LEUKOCYTES, UA 75 Negative Michael/uL [facility], [place] Nitrite, Urine Negative Negative NA [facility] [place] Occult Blood,Urine Negative Negative mg/dL [facility] [place] pH (U) 5.0 [pH] [place], [place] Protein (U) [Mass/Vol] Negative Negative mg/dL [place] Specific Cameron, Urine 1.009 [place] Squam Epithel, UA 0-2 3 - 5 /[HPF] [place] Urobilinogen, Urine Normal Normal ( 0-1) mg/dL [place] WBC, UA 6-10 0 - 5 /[HPF] [place] Test Performed by [address] [address] [place] VL Carotid Duplex Ultrasound Completeon 02-25-2019 VL Carotid Duplex Ultrasound Complete Patient Name: CHRISTY FRANCIS Ultrasound Exam Date/Time 02/25/2019 13:56:07 EST Exam VL Carotid Duplex Ultrasound Complete Ordering Physician RICHY ENCINAS, MINOO Rivera Accession Number [id number] CPT4 Codes 33149 () Reason For Exam preop CABG Report [facility] Carotid Duplex Report Ordering Physician: Minoo [employer] Administrator: Yamilet Cortes RVT Interpreting Physician: Charlie Solano MD Location: [facility] Indications: Carotid stenosis. Conclusions 1. Mild carotid [...] 02/26/2019 9:08 am Signed by: CHARLIE SOLANO [facility] VL PVR Arterial Doppler Lwr w/o Exerciseon 02-25-2019 VL PVR Arterial Doppler Lwr w/o Exercise Patient Name: CHRISTY FRANCIS Ultrasound Exam Date/Time 02/25/2019 13:56:47 EST Exam VL PVR Arterial Doppler Lwr w/o Exercise Ordering Physician MD CIRILO, TIMMY Accession Number [id number] CPT4 Codes 39613 () Reason For Exam PVD preop CABG Report [facility] Multilevel Lower Extremity Arterial Evaluation Report Ordering Physician: Timmy Basilio MD Technology Administrator: Yamilet Cortes Santos Interpreting Physician: Charlie Solano MD Location: [facility] Indications: PVD. Conclusions 1. Left resting ISIDRO [...] supine position. Images were obtained using a [employer] 2100 vascular ultrasound machine. Arterial pressure indices: [...] 02/26/2019 9:13 am Signed by: CHARLIE SOLANO [facility] VL Vein Map for Preop Bypass [place] 02-25-2019 VL Vein Map for Preop Bypass Lower Ext Patient Name: CHRISTY FRANCIS Ultrasound Exam Date/Time 02/25/2019 13:56:27 EST Exam VL Vein Map for Preop Bypass Lower Ext Ordering Physician RICHY ENCINAS, MINOO Rivera Accession Number [id number] CPT4 Codes 70170 () Reason For Exam pre op CABG please ted legs Report [facility] Bilateral LE Vein Mapping For Bypass Report Ordering Physician: Minoo [employer] Administrator: Yamilet Cortes RVT Interpreting Physician: Charlie Solano MD Location: [facility] Indications: Pre-op bypass. Conclusions 1. The right great saphenous vein and left great saphenous veinappears patent. 2. Vein sizes as noted below. Study data: Bilateral lower extremity vein mapping. Grayscale 2D imaging. Location: Vascular laboratory. Procedure: A vascular evaluation was performed with the patient in the supine position. Images were obtained using a [employer] E9 vascular ultrasound machine. Vein mapping: + [...] 9:10 am Signed by: CHARLIE SOLANO [facility] Glucose,Bedsideon 02-24-2019 Glucose [Mass/Vol] 285 mg/dL High 70-100 [facility] Comment on above: Result Comment: Test performed by glucose meter. Results may be 10%-15% lower than serum/plasma values. (CLIA ID [id number]) Performed By: #### B GLU #### [facility] [address] [place] [address] Glucose [Mass/Vol] 290 mg/dL High 70-100 [facility] Comment on above: Result Comment: Test performed by glucose meter. Results may be 10%-15% lower than serum/plasma values. (CLIA ID [id number]) Performed By: #### B GLU #### [facility] [address] [place] [address] Glucose [Mass/Vol] 302 mg/dL High 70-100 [facility] Comment on above: Result Comment: Test performed by glucose meter. Results may be 10%-15% lower than serum/plasma values. (CLIA ID [id number]) Performed By: #### B GLU #### [facility] [address] [place] [address] POCT Glucoseon 02-24-2019 Glucose [Mass/Vol] 272 mg/dL High 70 - 100 mg/dL [facility] Comment on above: Test performed by gl ucose meter. Results may be 10%-15% lower than serum/plasma values. (CLIA ID [id number]) Interpretation and review of laboratory results Abnormal [facility] Test Performed by [facility], [place] [address] [facility] Glucose [Mass/Vol] 285 mg/dL High 70 - 100 mg/dL [facility] Comment on above: Test performed by gl ucose meter. Results may be 10%-15% lower than serum/plasma values. (CLIA ID [id number]) Interpretation and review of laboratory results Abnormal [facility] Test Performed by [facility], [address] [place] [address] [facility] Glucose [Mass/Vol] 290 mg/dL High 70 - 100 mg/dL [facility] [place] Comment on above: Test performed by gl ucose meter. Results may be 10%-15% lower than serum/plasma values. (CLIA ID [id number]) Interpretation and review of laboratory results Abnormal [facility] [place] Test Performed by [facility], [address] [place] [address] [facility] [place] Glucose [Mass/Vol] 302 mg/dL High 70 - 100 mg/dL [facility] [place] Comment on above: Test performed by gl ucose meter. Results may be 10%-15% lower than serum/plasma values. (CLIA ID [id number]) Interpretation and review of laboratory results Abnormal [place] Test Performed by [facility], [address] [place] [address] [place] Bedside spirometryon [address] [place] [address] Cardiology Results From [facility] - 02/28/2019 12:48 PM EST Name: CHRISTY FRANCIS PatientID: [id number] Gender: Female Birthdate: 1950 Study Date: 02/23/2019 3:15:42 P Age: 69 Race: Other Race Height: 62.0 in, 157.5 cm Weight: 176.0 lbs, 80.0 kg Smoke Status: Smokes Pack Years: 26.Tbco Prod: Cigarettes Ordering Physician: [id number] Interpreting Physician: [id number] Contour Band Saw Operator Vertical: Jennifer Testing Location: [facility] Diagnosis: CAD, HFrEF, pre-surgical values Spirometry Units Pred PreDrug Pre%Pred Post Post%Pred %Change FVC L,btps 2.79 1.80 64. FEV1 L,btps 2.11 1.33 63. FEV1/FVC (%) % 76. 74. 97. GHR20-50% L/s 1.83 1.01 55. FEFmax L/s 5.42 [...] /MIP cmH2O -68.81 PEmax /MEP cmH2O 90.11 NURSES AIDE NOTES Calibration check passed with acceptable system performance. Spirometry best effort, met acceptability and repeatability guidelines. Pt sitting upright in bedside chair with both feet on ground. [address] [place] Tests to perform: RT17 - BEDSIDE [...] Possible moderate restriction #2. Small airways obstruction [place] Name: CHRISTY FRANCIS PatientID: [id number] Gender: Female Birthdate: 1950 Study Date: 02/23/2019 3:15:42 P Age: 69 Race: Other Race Height: 62.0 in, 157.5 cm Weight: 176.0 lbs, 80.0 kg Smoke Status: Smokes Pack Years: 26.Tbco Prod: Cigarettes Ordering Physician: [id number] Interpreting Physician: [id number] Contour Band Saw Operator Vertical: Jennifer Testing Location: [facility] Diagnosis: CAD, HFrEF, pre-surgical values Spirometry Units Pred PreDrug Pre%Pred Post Post%Pred %Change FVC L,btps 2.79 1.80 64. FEV1 L,btps 2.11 1.33 63. FEV1/FVC (%) % 76. 74. 97. UXC08-15% L/s 1.83 1.01 55. FEFmax L/s 5.42 [...] /MIP cmH2O -68.81 PEmax /MEP cmH2O 90.11 NURSES AIDE NOTES Calibration check passed with acceptable system performance. Spirometry best effort, met acceptability and repeatability guidelines. Pt sitting upright in bedside chair with both feet on ground. [address]- [place] Tests to perform: RT17 - BEDSIDE [...] Possible moderate restriction #2. Small airways obstruction [place], [place] CBCon 02-23-2019 Erythrocyte distribution width (RBC) [Ratio] 13.1 % 11.5 - 14.5 % [place] Hematocrit (Bld) [Volume fraction] 44.3 % 35 - 47 % [place] Hemoglobin (Bld) [Mass/Vol] 15.1 g/dL 11.7 - 16 g/dL [place] MCH (RBC) [Entitic mass] 30.8 pg 26 - 34 pg [place] MCHC (RBC) [Mass/Vol] 34.0 % 32 - 36 % [place] MCV (RBC) [Entitic vol] 90.3 fL 79 - 98 fL [place] Platelet mean volume (Bld) [Entitic vol] 9.4 fL 7.4 - 10.4 fL [place] Platelets (Bld) [#/Vol] 212 10*3/uL 140 - 440 10*3/uL [place] RBC (Bld) [#/Vol] 4.90 10*6/uL 3.8 - 5.2 10*6/uL [place] WBC (Bld) [#/Vol] 8.6 10*3/uL 3.6 - 10.7 10*3/uL [place] Test Performed by [facility], [address] [place] [id number] [place] [address] CR Chest Portableon 02-24-20 19 CR Chest Portable Patient Name: CHRISTY FRANCIS Diagnostic Radiology Exam Date/Time 02/23/2019 17:30:22 EST Exam CR Chest Portable Ordering Physician RICHY ENCINAS, MINOO Rivera Accession Number [id number] CPT4 Codes 33403 () Reason For Exam preop CABG Report [...] Transcribed Date and Time: 02/23/2019 9:18 Normal [facility] Comp Panel with Mg Reflexon 02-23-2019 Calcium [Mass/Vol] 9.1 mg/dL Normal 8.4-10.4 [facility] Comment on above: Performed By: #### H MEGHNA AVILA3M #### [address] [address] [place], [place] ALP [Catalytic activity/Vol] 57 U/L Normal 38-126 [facility] Comment on above: Performed By: #### H AUSTIN CMP3M #### [facility] [address] [place], [place] ALT [Catalytic activity/Vol] 53 U/L Normal 13-69 [facility] Comment on above: Performed By: #### H AUSTIN CMP3M #### [facility] [address] [place], [place] Anion gap [Moles/Vol] 8 Normal [facility] Comment on above: Performed By: #### H AUSTIN CMP3M #### [facility] [address] [place], [place] AST [Catalytic activity/Vol] 49 U/L High 15-46 [facility] Comment on above: Performed By: #### H AUSTIN CMP3M #### [facility] [address] [place], [place] Bilirubin [Mass/Vol] 0.5 mg/dL Normal 0.2-1.3 [facility] Comment on above: Performed By: #### H AUSTIN CMP3M #### [facility] [address] [place], [place] CO2 [Moles/Vol] 21 mmol/L Low 22-30 [facility] Comment on above: Performed By: #### H AUSTIN CMP3M #### [facility] [address] [place], [place] Glucose [Mass/Vol] 288 mg/dL High 70-100 [facility] Comment on above: Performed By: #### H AUSTIN CMP3M #### [facility] [address] [place], [place] Protein [Mass/Vol] 7.0 g/dL Normal 6.3-8.2 [facility] Comment on above: Performed By: #### H AUSTIN CMP3M #### [facility] [address] [place], [place] Urea nitrogen [Mass/Vol] 24 mg/dL High 7-20 [facility] Comment on above: Performed By: #### Papito AVILA CMP3M #### [facility] [address] [place], [place] Creatinine [Mass/Vol] 1.03 mg/dL Normal 0.52-1.25 [facility] Comment on above: Performed By: #### Papito AVILA CMP3M #### [facility] [address] [place] [address] GFR/1.73 sq M predicted among blacks MDRD (S/P/Bld) [Vol rate/Area] mL/min/{1.73_m2} Normal >60 [facility] Comment on above: Performed By: #### Papito AVILA CMP3M #### [address] [address] [address] GFR/1.73 sq M predicted among non-blacks MDRD (S/P/Bld) [Vol rate/Area] 53.1 mL/min/{1.73_m2} Normal >60 [facility] Comment on above: Result Comment: Sour ce- MDRD equation with creatinine calibration to IDMS(NKDEP) eGFR not recommended for drug dose adjustment Performed By: #### Papito AVILA CMP3M #### [address] [address] [address], [place] Albumin [Mass/Vol] 3.9 g/dL Normal 3.5-5.0 [facility] Comment on above: Performed By: #### Papito AVILA CMP3M #### [address] [address] Chloride [Moles/Vol] 106 mmol/L Normal 98-107 [facility] Comment on above: Performed By: #### Papito VAILA CMP3M #### [address] [address] [address], [place] Potassium [Moles/Vol] 4.8 mmol/L Normal 3.5-5.1 [facility] Comment on above: Performed By: #### Papito AVILA CMP3M #### [address] [address] Sodium [Moles/Vol] 136 mmol/L Normal 135-145 [facility] Comment on above: Performed By: #### H [facility], CMP3M #### [facility] [address] [place] [address] Comprehensive Metabolic Pane l w/ Reflex to MGon 02-23-2019 Albumin [Mass/Vol] 3.9 g/dL 3.5 - 5 g/dL [place] ALP [Catalytic activity/Vol] 57 U/L 38 - 126 U/L [place] ALT [Catalytic activity/Vol] 53 U/L 13 - 69 U/L [place] Anion gap [Moles/Vol] 8 mmol/L [place] AST [Catalytic activity/Vol] 49 U/L High 15 - 46 U/L [place] Bilirubin Ql (U) 0.5 mg/dL 0.2 - 1.3 mg/dL [place] Calcium [Mass/Vol] 9.1 mg/dL 8.4 - 10. 4 mg/dL [place] Chloride [Moles/Vol] 106 mmol/L 98 - 10 7 mmol/L [place] CO2 [Moles/Vol] 21 mmol/L Low 22 - 30 mmol/L [place] Creatinine [Mass/Vol] 1.03 mg/dL 0.52 - 1.25 mg/dL [place] EGFR IF NonAfrican [place] 53.1 mL/min >60 [place] Comment on above: Source- MDRD equatio n with creatinine calibration to IDVT(NKDEP) eGFR not recommended for drug dose adjustment GFR/1.73 sq M predicted among blacks MDRD (S/P/Bld) [Vol rate/Area] mL/min/{1.73_m2} >60 mL/min [place] Glucose [Mass/Vol] 288 mg/dL High 70 - 100 mg/dL [place] Interpretation and review of laboratory results Abnormal [place] Potassium [Moles/Vol] 4.8 mmol/L 3.5 - 5.1 mmol/L [place] Protein [Mass/Vol] 7.0 g/dL 6.3 - 8.2 g/dL [place] Sodium [Moles/Vol] 136 mmol/L 135 - 145 mmol/L [place] Urea nitrogen [Mass/Vol] 24 mg/dL High 7 - 20 mg/dL [place] Test Performed by [facility], [address] [place] [address] [place], [place] Glucose,Bedsideon 02-23-2019 Glucose [Mass/Vol] 296 mg/dL High 70-100 [place] Comment on above: Test performed by gl ucose meter. Results may be 10%-15% lower than serum/plasma values. (CLIA ID [id number]) Result Comment: Test performed by glucose meter. Results may be 10%-15% lower than serum/plasma values. (CLIA ID [id number]) Performed By: #### B GLU #### [address] [address] [place] [address] Glucose [Mass/Vol] 328 mg/dL [facility] [address] Comment on above: Result Comment: Test performed by glucose meter. Results may be 10%-15% lower than serum/plasma values. (CLIA ID [id number]) Performed By: #### B GLU #### [address] [place] [address] Glucose [Mass/Vol] 348 mg/dL [address] Comment on above: Result Comment: Test performed by glucose meter. Results may be 10%-15% lower than serum/plasma values. (CLIA ID [id number]) Performed By: #### B GLU #### [facility] [address] [place] [address] Glucose [Mass/Vol] 315 mg/dL [facility] [address] Comment on above: Result Comment: Test performed by glucose meter. Results may be 10%-15% lower than serum/plasma values. (CLIA ID [id number]) Performed By: #### B GLU #### [facility] [address] [place] [address] Hemogramon 02-23-2019 Erythrocyte distribution width (RBC) [Ratio] 13.1 % Normal 11.5-14.5 [facility] Comment on above: Performed By: #### Papito AVILA CMP3M #### [address] [address] [place] [place] Hematocrit (Bld) [Volume fraction] 44.3 % Normal 35.0-47.0 [facility] Comment on above: Performed By: #### Papito AVILA CMP3M #### [address] [address] [address] [place] Hemoglobin (Bld) [Mass/Vol] 15.1 g/dL Normal 11.7-16.0 [facility] Comment on above: Performed By: #### Papito AVILA CMP3M #### [address] [address] [address] [place] MCH (RBC) [Entitic mass] 30.8 pg Normal 26.0-34.0 [facility] Comment on above: Performed By: #### Papito AVILA CMP3M #### [address] [address] [address] [place] MCHC (RBC) [Mass/Vol] 34.0 % Normal 32.0-36.0 [facility] Comment on above: Performed By: #### Papito AVILA CMP3M #### [address] [address] [address] [place] MCV (RBC) [Entitic vol] 90.3 fL Normal 79.0-98.0 [facility] Comment on above: Performed By: #### Papito AVILA CMP3M #### [address] [address] [place] Platelet mean volume (Bld) [Entitic vol] 9.4 fL Normal 7.4-10.4 [facility] Comment on above: Performed By: #### Papito AVILA CMP3M #### [address] [address] [place], [place] Platelets (Bld) [#/Vol] 212 10*3/uL Normal 140-440 [facility] Comment on above: Performed By: #### Papito AVILA CMP3M #### [facility] [address] [place] [address] RBC (Bld) [#/Vol] 4.90 10*6/uL Normal 3.80-5.20 [facility] Comment on above: Performed By: #### H EMOG, CMP3M #### [facility] [address] [place] [address] WBC (Bld) [#/Vol] 8.6 10*3/uL Normal 3.6-10.7 [facility] Comment on above: Performed By: #### H EMOG, CMP3M #### [facility] [address] [place] [address] POCT Glucoseon 02-23-2019 Interpretation and review of laboratory results Abnormal [facility] Test Performed by [facility], [place] [address] [facility] [place] Glucose [Mass/Vol] 328 mg/dL High 70 - 100 mg/dL [facility] [place] Comment on above: Test performed by gl ucose meter. Results may be 10%-15% lower than serum/plasma values. (CLIA ID [id number]) Interpretation and review of laboratory results Abnormal [facility] [place] Test Performed by [facility], [facility] [place] [address] [facility] [place] Glucose [Mass/Vol] 348 mg/dL High 70 - 100 mg/dL [facility] [place] Comment on above: Test performed by gl ucose meter. Results may be 10%-15% lower than serum/plasma values. (CLIA ID [id number]) Interpretation and review of laboratory results Abnormal [facility] Test Performed by [facility], [place] [address] [facility] Glucose [Mass/Vol] 315 mg/dL High 70 - 100 mg/dL [facility] [place] Comment on above: Test performed by gl ucose meter. Results may be 10%-15% lower than serum/plasma values. (CLIA ID [id number]) Interpretation and review of laboratory results Abnormal [facility] [place] Test Performed by [facility], [address] [place] [address] [place] XR CHEST PORTABLEon 02-24-20 Patient Name: CHRISTY FRANCIS ---Diagnostic Radiology--- Exam Date/Time 02/23/2019 17:30:22 EST Exam CR Chest Portable Ordering Physician RICHY ENCINAS ANDREW G Accession Number [id number] CPT4 Codes 67262 () Reason For Exam preop CABG Report [...] ALFRED Transcribed Date and Time: 02/23/2019 9:18 [place], [place] Kathie Torres Incoming Radiology Results From [facility] - 02/23/2019 9:20 PM EST Patient Name: CHRISTY FRANCIS ---Diagnostic Radiology--- Exam Date/Time 02/23/2019 17:30:22 EST Exam CR Chest Portable Ordering Physician RICHY ENCINAS, MINOO Rivera Accession Number [id number] CPT4 Codes 14451 () Reason For Exam preop CABG Report [...] ALFRED Transcribed Date and Time: 02/23/2019 9:18 [facility], [place] Glucose,Bedsideon 02-22-2019 Glucose [Mass/Vol] 283 mg/dL High 70-100 [facility] Comment on above: Result Comment: Test performed by glucose meter. Results may be 10%-15% lower than serum/plasma values. (CLIA ID [id number]) Performed By: #### B GLU #### [facility] [address] [place] [address] Glucose [Mass/Vol] 200 mg/dL High 70-100 [facility] Comment on above: Result Comment: Test performed by glucose meter. Results may be 10%-15% lower than serum/plasma values. (CLIA ID [id number]) Performed By: #### B GLU #### [facility] [address] [place] [address] POCT Glucoseon 02-22-2019 Glucose [Mass/Vol] 283 mg/dL High 70 - 100 mg/dL [place], [place] Comment on above: Test performed by gl ucose meter. Results may be 10%-15% lower than serum/plasma values. (CLIA ID [id number]) Interpretation and review of laboratory results Abnormal [employer], [place] Test Performed by [facility] Diplopia [facility], [facility] [place] [address] [facility], [place] Glucose [Mass/Vol] 200 mg/dL High 70 - 100 mg/dL [facility], [place] Comment on above: Test performed by gl ucose meter. Results may be 10%-15% lower than serum/plasma values. (CLIA ID [id number]) Interpretation and review of laboratory results Abnormal [facility] [place], [place] Test Performed by [facility], [facility] [place] [address] [facility], [place] Vital Signs Date Time Vital Sign Value Performing Clinician Facility 01-03-2025 09:30-0400 Body temperature 97.7 [degF] Dr. Marielos Perla DO Work Phone: [facility] 01-03-2025 09:30-0400 Body weight 74.[address] Marielos Perla DO Work Phone: [facility] 01-03-2025 09:30-0400 Diastolic blood pressure 64 mm[Hg] Dr. Marielos Perla DO Work Phone: [facility] 01-03-2025 09:30-0400 Heart rate 106 /min Dr. Marielos Perla DO Work Phone: [facility] 01-03-2025 09:30-0400 Respiratory rate 16 /min Dr. Marielos Perla DO Work Phone: [facility] 01-03-2025 09:30-0400 SaO2% (BldA) [Mass fraction] 97 % Dr. Marielos Perla DO Work Phone: [facility] 01-03-2025 09:30-0400 Systolic blood pressure 108 mm[Hg] Dr. Marielos Perla DO Work Phone: [facility] 12-12-2024 10:53-0400 Body temperature 97.7 [degF] Dr. Marielos Perla DO Work Phone: [facility] 12-12-2024 10:53-0400 Body weight 76.[address] Marielos Perla DO Work Phone: [facility] 12-12-2024 10:53-0400 Diastolic blood pressure 78 mm[Hg] Dr. Marielos Perla DO Work Phone: [facility] 12-12-2024 10:53-0400 Heart rate 112 /min Dr. Marielos Perla DO Work Phone: [facility] 12-12-2024 10:53-0400 Respiratory rate 18 /min Dr. Marielos Perla DO Work Phone: [facility] 12-12-2024 10:53-0400 SaO2% (BldA) [Mass fraction] 98 % Dr. Marielos Perla DO Work Phone: [facility] 12-12-2024 10:53-0400 Systolic blood pressure 126 mm[Hg] Dr. Marielos Perla DO Work Phone: [facility] 11-02-2024 10:17-0400 Body height 157.[address] Marielos Perla DO Work Phone: [facility] 11-02-2024 10:17-0400 Body mass index (BMI) [Ratio] 30.5 kg/m2 Dr. Marielos Perla DO Work Phone: [facility] 11-02-2024 10:17-0400 Body weight 75.[address] Marielos Perla DO Work Phone: [facility] 11-02-2024 10:17-0400 Diastolic blood pressure 65 mm[Hg] Dr. Marielos Perla DO Work Phone: [facility] 11-02-2024 10:17-0400 Respiratory rate 18 /min Dr. Marielos Perla DO Work Phone: [facility] 11-02-2024 10:17-0400 Systolic blood pressure 112 mm[Hg] Dr. Marielos Perla DO Work Phone: [facility] 06-05-2024 10:52-0500 Body height 157.[address] Marielos Perla DO Work Phone: [facility] 06-05-2024 10:52-0500 Body mass index (BMI) [Ratio] 34.2 kg/m2 Dr. Marielos Perla DO Work Phone: [facility] 06-05-2024 10:52-0500 Body weight 84.[address] Marielos Perla DO Work Phone: [facility] 06-05-2024 10:52-0500 Diastolic blood pressure 73 mm[Hg] Dr. Marielos Perla DO Work Phone: [facility] 06-05-2024 10:52-0500 Heart rate 98 /min Dr. Marielos Perla DO Work Phone: [facility] 06-05-2024 10:52-0500 Respiratory rate 18 /min Dr. Marieols Perla DO Work Phone: [facility] 06-05-2024 10:52-0500 Systolic blood pressure 119 mm[Hg] Dr. Marielos Perla DO Work Phone: [facility] 11-18-2022 13:38-0400 Body height 157.[address] Marielos Perla Work Phone: [facility] 11-18-2022 13:38-0400 Body mass index (BMI) [Ratio] 35.8 kg/m2 Dr. Marielos Perla Work Phone: [facility] 11-18-2022 13:38-0400 Body weight 88.[address] Marielos Perla Work Phone: [facility] 11-18-2022 13:38-0400 Diastolic blood pressure 80 mm[Hg] Dr. Marielos Perla Work Phone: [facility] 11-18-2022 13:38-0400 Heart rate 93 /min Dr. Marielos Perla Work Phone: [facility] 11-18-2022 13:38-0400 Respiratory rate 18 /min Dr. Marielos Perla Work Phone: [facility] 11-18-2022 13:38-0400 SaO2% (BldA) [Mass fraction] 95 % Dr. Marielos Perla Work Phone: [facility] 11-18-2022 13:38-0400 Systolic blood pressure 146 mm[Hg] Dr. Marielos Perla Work Phone: [facility] 08-20-2022 09:54-0400 Body height 157.[address] Marielos Perla Work Phone: [facility] 08-20-2022 09:54-0400 Body mass index (BMI) [Ratio] 35.3 kg/m2 Dr. Marielos Perla Work Phone: [facility] 08-20-2022 09:54-0400 Body weight 87.[address] Marielos Perla Work Phone: [facility] 08-20-2022 09:54-0400 Diastolic blood pressure 79 mm[Hg] Dr. Marielos Perla Work Phone: [facility] 08-20-2022 09:54-0400 Heart rate 76 /min Dr. Marielos Perla Work Phone: [facility] 08-20-2022 09:54-0400 Respiratory rate 18 /min Dr. Marielos Perla Work Phone: [facility] 08-20-2022 09:54-0400 Systolic blood pressure 139 mm[Hg] Dr. Marielos Perla Work Phone: [facility] 03-29-2022 18:34-0500 Body temperature 98.3 [degF] [facility] 03-29-2022 18:34-0500 Diastolic blood pressure 85 mm[Hg] [facility] 03-29-2022 18:34-0500 Heart rate 74 /min [facility] 03-29-2022 18:34-0500 Respiratory rate 18 /min [facility] 03-29-2022 18:34-0500 SaO2% (BldA) [Mass fraction] 99 % [facility] 03-29-2022 18:34-0500 Systolic blood pressure 125 mm[Hg] [facility] 03-29-2022 17:27-0500 Body height 157.48 cm [facility] 03-29-2022 17:27-0500 Body mass index (BMI) [Ratio] 33.8 kg/m2 [facility] 03-29-2022 17:27-0500 Body weight 83.91 kg [facility] 03-03-2019 15:30-0500 BP Diastolic 55 mm[Hg] Mil Pettit [facility] , [place] 03-03-2019 15:30-0500 BP Systolic 124 mm[Hg] Mil Pettit [facility] , [place] 03-03-2019 15:30-0500 Pulse (Heart Rate) 83 /min Mil Pettit [facility] 03-03-2019 15:30-0500 Pulse Oximetry 96 % Mil [facility] , [place] 03-03-2019 15:30-0500 Respiratory Rate 18 /min Mil Pettit [facility] 03-03-2019 11:51-0500 Body Temperature 97.81 [degF] Mil [facility] 03-03-2019 00:00-0500 BMI (Body Mass Index) 34.14 kg/m2 Mil Ashley [facility] 03-03-2019 00:00-0500 Body weight 81.[address] [facility] [place] 02-28-2019 12:00-0500 Height 154.[address] [facility] , [place] Encounters Encounter Date Encounter Type Care Provider Facility Start: 01-18-2025 ambulatory Marielos Perla Facility:[facility] Start: 01-10-2025 ambulatory Marielos Perla Facility:[facility] Start: 01-03-2025 End: 01-03-2025 Patient encounter procedure Ava HOLLAND -[facility] Work Phone: Start: 01-03-2025 End: 01-03-[address] Marielos Perla DO Work Phone: -[facility] Start: 12-22-2024 Non-patient / Non-visit Dr. Grant coburn MD -[facility] Start: 12-22-2024 End: 12-22-[address] Marielos Perla DO Work Phone: -Cardiovascular Services Start: 12-22-2024 End: 12-22-2024 Patient encounter procedure Ava HOLLAND -Card[facility] Services Work Phone: Start: 12-22-2024 End: 12-22-2024 ambulatory Marielos Perla Facility:[facility] Start: 12-12-2024 End: 12-12-2024 Patient encounter procedure Ava HOLLAND -[facility] Work Phone: Start: 12-12-2024 End: 12-12-[address] Marielos Perla DO Work Phone: -[facility] Start: 12-06-2024 End: 12-06-[address] Marielos Perla DO Work Phone: -[facility] Start: 12-06-2024 End: 12-06-2024 Patient encounter procedure Jennifer HOLLAND -[facility] Work Phone: Start: 12-06-2024 End: 12-06-2024 ambulatory [facility] Facility:[facility] Start: 11-29-2024 End: 11-29-[address] Marielos Perla DO Work Phone: -[facility] Start: 11-29-2024 End: 11-29-[address] Marielos Perla DO -[facility] Work Phone: Start: 11-29-2024 End: 11-29-2024 ambulatory Marielos Perla Facility:[facility] Start: 11-02-2024 End: 11-02-2024 Patient encounter procedure Jennifer HOLLAND -[facility] Work Phone: Start: 11-02-2024 End: 11-02-[address] Marielos Perla DO Work Phone: -[facility] Start: 11-02-2024 End: 11-02-2024 ambulatory [facility] Facility:[facility] Start: 09-18-2024 End: 09-18-[address] Marielos Perla DO Work Phone: [facility] Work Phone: Start: 09-18-2024 End: 09-18-2024 Patient encounter procedure Rand Mckeon [employer] [facility] -[facility] [place] Work Phone: Start: 09-18-2024 End: 09-18-2024 ambulatory Rand Mckeon Facility:[facility] Start: 06-05-2024 End: 06-05-2024 Patient encounter procedure Charlie Johnson [employer]AC[employer] FOR MEDICAL TERMINOLOGY-C -[facility] Work Phone: Start: 06-05-2024 End: 06-05-2024 ambulatory Charlie Johnson Facility:[facility] Start: 03-09-2024 End: 03-09-2024 ambulatory Charlie Johnson Facility:[facility] Start: 02-19-2024 End: 02-21-2024 ambulatory Grant Castelan Facility:[facility] Start: 01-27-2024 End: 01-27-2024 ambulatory Marielos Perla Facility:[facility] Start: 07-19-2023 End: 07-19-2023 ambulatory [facility] Work Phone: Start: 07-19-2023 End: 07-19-2023 Patient encounter procedure [facility]-Radiology, [place] Work Phone: Start: 06-14-2023 End: 06-14-2023 ambulatory [facility] Work Phone: Start: 06-14-2023 End: 06-14-2023 Patient encounter procedure [facility]-Cat Scan, [facility] Work Phone: Start: 11-25-2022 End: 11-25-[address] Marielos Perla Work Phone: [facility] Work Phone: Start: 11-25-2022 End: 11-25-[address] Marielos Perla Work Phone: [facility]-Pulmonary Services/Neurology Work Phone: Start: 11-23-2022 End: 11-23-[address] Marielos Perla Work Phone: [facility] Work Phone: Start: 11-23-2022 End: 11-23-[address] Marielos Perla Work Phone: [facility]-Laboratory, [facility] Start: 11-18-2022 End: 11-18-[address] Marielos Perla Work Phone: [facility] Work Phone: Start: 08-20-2022 End: 08-20-[address] Marielos Perla Work Phone: [facility] Work Phone: Start: 08-14-2022 End: 08-14-[address] Marielos Perla Work Phone: [facility] Work Phone: Start: 08-14-2022 End: 08-14-[address] Marielos Perla Work Phone: [facility]-Laboratory Start: 07-08-2022 End: 07-08-[address] Marielos Perla Work Phone: [facility] Work Phone: Start: 07-08-2022 End: 07-08-[address] Marielos Perla Work Phone: [facility]-Cardiovascular Services Start: 06-16-[address] Marielos Perla Work Phone: [facility]-Physical Therapy Start: 06-09-2022 End: 06-09-[address] Marielos Perla Work Phone: [facility] Start: 05-23-2022 End: 05-23-2022 ambulatory [facility] Work Phone: Start: 05-23-2022 End: 05-23-2022 Patient encounter procedure [facility] Start: 03-29-2022 End: 03-29-2022 Emergency department patient visit [facility]-Emergency Department Start: 02-25-2022 End: 02-25-2022 ambulatory [facility] Work Phone: Start: 02-25-2022 End: 02-25-2022 Patient encounter procedure [facility]-Laboratory Start: 02-22-2019 End: 03-03-2019 Evaluation and management of inpatient Mil Pettit Work Phone: [facility] Comment on above: CAD in [place] artery (Primary Dx); S/P CABG x 3; Type 2 diabetes mellitus with other circulatory complication, with long-term current use of insulin (HCC) Procedures Date Procedure Procedure Detail Performing Clinician Start: 12-22-2024 X-ray of lumbar spin e, two or three views Dr. Marielos Perla DO Work Phone: Start: 11-29-[address] Darcie Perla DO Work Phone: Start: 09-18-2024 X-ray of lumbosacral spine Dr. [...] Basic metabolic pane l calcium total Oren Joel Plored Work Phone: Start: 03-01-2019 Gluc bld gluc [...] Start: 03-01-2019 Potassium serum plasma/whole blood Michael Nunez Work Phone: Start: 03-01-2019 End: 03-01-2019 Gluc [...] Start: 02-26-2019 Blood typing serologic abo Ronda Carmona Work Phone: Start: 02-26-2019 Prothrombin time [...] K Jayson Metzger Work Phone: Start: 02-26-2019 Blood count complete automated Jayson Metzger Work Phone: Start: 02-25-2019 Gluc bld gluc [...] ecg w/le ast 12 lds w/i&r [facility] [employer] Work Phone: Start: 02-25-2019 Gluc bld gluc mntr d ev cleared fda spec home use [employer] Work Phone: Start: 02-25-2019 Urnls dip stick/tabl et rgnt auto w/o microscopy [employer] Work Phone: Start: 02-25-2019 Hemoglobin glycosyla akil a1c [facility] [employer] Work Phone: Start: 02-24-2019 Gluc bld gluc mntr d ev cleared fda spec home use [employer] Work Phone: Start: 02-24-2019 Gluc bld gluc mntr d ev cleared fda spec home use [employer] Work Phone: Start: 02-24-2019 Gluc bld gluc mntr d ev cleared fda spec home use [employer] Work Phone: Start: 02-24-2019 Gluc bld gluc mntr d ev cleared fda spec home use [employer] Work Phone: Start: 02-23-2019 Gluc bld gluc mntr d ev cleared fda spec home use [employer] Work Phone: Start: 02-23-2019 Radiologic exam ches t single view Minoo Encinas Work Phone: Start: 02-23-2019 BEDSIDE SPIROMETRY Andr kaylee Encinas Work Phone: Start: 02-23-2019 Gluc bld gluc mntr d ev cleared fda spec home use [employer] Work Phone: Start: 02-23-2019 End: 02-23-2019 Gluc bld gluc mntr dev cleared fda spec home use [employer] Work Phone: Start: 02-23-2019 Blood count complete [...] artery bypass graft x 3 Charlie Johnson [employer] [facility] [facility]MINOLOGY-[facility] Comment on above: CABG x3 with GIRALDO to LAD, SVG to OM 2, and SVG to PDA of RCA on 02/27/[address] Taylor at [facility]; Plan of Treatment Date Care Activity Detail Author Start: 06-09-2022 Patient referral [facility] Work Phone: Start: 02-24-2020 Creatinine monitoring Creatinine mon itoring [place], [place] Start: 02-24-2020 Potassium monitoring Potassium monit [place]ing [place] Start: 03-14-2019 End: 03-14-2019 Office Visit 03/14/2019 Office Visit Cardiothoracic Surgery Ronda Carmona, CELL REPAIRER - [employer] SUPERVISOR [address] [place] [address] [phone] CT [facility] Start: 02-24-2019 Annual Wellness Visi t (AWV) Annual Wellness Visit (AWV) [place], [place] Start: 12-18-2018 Influenza vaccination Flu vaccine (# 1) [place] Start: 2015 DEXA (modify frequen cy per FRAX score) DEXA (modify frequency per FRAX score) [place] Start: 2015 Pneumococcal 65+ yea rs Vaccine (1 of 1 - PPSV23) Pneumococcal 65+ years Vaccine (1 of 1 - PPSV23) [place] Start: 01-31-2000 Breast cancer screen Breast cancer s [place], [place] Start: 01-31-2000 Colon cancer screen colonoscopy Colon cancer screen colonoscopy [place], [place] Start: 01-31-2000 Shingles Vaccine (1 of 2) Shingles V accine (1 of 2) [place] Start: 01-31-1968 Diabetic microalbumi ximena test Diabetic microalbuminuria test [place] Start: 1961 DTaP/Tdap/Td vaccine (1 - Tdap) DTaP/Tdap/Td vaccine (1 - Tdap) [place] Start: 01-31-1960 [object Object] Diabetic foot exam [place], [place] Start: 01-31-1960 A1C test (Diabetic o r Prediabetic) A1C test (Diabetic or Prediabetic) [place] Start: 01-31-1960 Diabetic retinal exam Diabetic retin al exam [place] Start: 01-31-1960 Lipid screen Lipid screen [place], [place] Start: 1950 Hepatitis C screen Hepatitis C scree n [place] Acapella Acapella Respira tory Care Routine Every 2hr while awake until discontinued starting 02/27/2019 [place] Comment on above: Every 2hr while awak e until discontinued starting 02/27/2019 Ankle brachial press ure index [facility] Basic metabolic 2000 panel Basic Metabolic Panel Lab Routine Daily until discontinued starting 02/27/2019, 4 completed [place] Comment on above: Daily until disconti nued starting 02/27/2019, 4 completed Basic metabolic 2008 panel with ionized calcium - Serum or Plasma [facility] Blood chemistry [facility] CBC CBC Lab Routine Daily until discontinued starting 02/27/2019, 5 completed [place] Comment on above: Daily until disconti nued starting 02/27/2019, 5 completed [facility] Treatment [place] Comment on above: 0800, 1200, 1600, 20 00 (respiratory use only) until discontinued starting 02/27/2019 Every 4hr until disc ontinued starting 03/02/2019 Incentive spirometry Incentive s pirometry Respiratory Care Routine Every 1hr while awake until discontinued starting 02/27/2019 [place] Comment on above: Every 1hr while awak e until discontinued starting 02/27/2019 Initiate Oxygen Ther apy Protocol Initiate Oxygen Therapy Protocol Respiratory Care Routine Daily until discontinued starting 02/27/2019 [place] Comment on above: Daily until disconti nued starting 02/27/2019 Patient Education Bruises (Contu sions) ED Abrasion [facility] Work Phone: Patient referral [facility] Work Phone: POCT glucose [facility] [employer] Comment on above: 4X Daily (AC & HS) u ntil discontinued starting 03/01/2019 As Needed until disc ontinued starting 03/01/2019 End: 02-23-2019 Urinalysis Urinalysis Lab Routine One Time for 1 Occurrences starting 02/23/2019 until 02/23/2019 [place] Comment on above: One Time for 1 Occur rences starting 02/23/2019 until 02/23/2019 Urinalysis Urinalysis Lab R outine 02/23/2019 6:49 PM EST [place] US Heart [facility] XR CHEST PORTABLE XR CHEST MIHIR BLE Imaging Routine Daily until discontinued starting 02/28/2019, 4 completed [place] Comment on above: Daily until disconti nued starting 02/28/2019, 4 completed XR Lumbar spine 2 or 3 Views [facility] Immunizations Immunization Date Immunization Notes Care Provider Sher ferreira 01-18-2024 influenza, high dose seasonal, preservative-free Dr. Marielos Perla DO Work Phone: [facility] 07-11-2020 Covid (Pfizer) [facility] 07-09-2020 tetanus toxoid, redu deejay diphtheria toxoid, and acellular pertussis vaccine, adsorbed [facility] 06-20-2020 Covid (Pfizer) [facility] 02-01-2019 Influenza virus vaccine [facility] Payers Date Payer Category Payer Medicare [id number] 2023 Self-pay [id number] 2023 Unknown [id number] 2018 Medicare HUMANA MEDICARE HUMANA CHOICE-PPO MEDICARE xxxxxxxxx 2018-Present [address] [address] [place] [address] xxxxxxxxx [id number] Medicare [id number] Medicare MEDICARE PART A B [id number] Unknown [id number] Unknown [id number] [id number] Unknown [id number] 2.16.840.1.511136.3.579.2.462 Unknown [id number] 2.16.840.1.795551.3.579.2.462 Unknown [id number] 2.16.840.1.148294.3.579.2.462 Unknown [id number] 2.16.840.1.200840.3.579.2.462 Unknown [id number] 2.16.840.1.981950.3.579.2.462 Unknown [id number] 2.16.840.1.581552.3.579.2.462 Unknown [id number] 2.16.840.1.405245.3.579.2.462 Unknown [id number] 2.16.840.1.110320.3.579.2.462 Unknown [id number] 2.16.840.1.115542.3.579.2.462 Unknown [id number] 2.16.840.1.951886.3.579.2.462 Unknown [id number] 2.16.840.1.048215.3.579.2.462 Unknown [id number] 2.16.840.1.496903.3.579.2.462 Unknown [id number] 2.16.840.1.386382.3.579.2.462 Unknown [id number] 2.16.840.1.279149.3.579.2.462 Unknown [id number] 2.16.840.1.832527.3.579.2.462 Unknown [id number] 2.16.840.1.972405.3.579.2.462 Unknown [id number] 2.16.840.1.156392.3.579.2.462 Unknown [id number] [id number]2 Social History Date Type Detail Facility Start: 02-23-2019 End: 11-18-2022 Tobacco smoking status NHIS Unknown if ever smoked [facility] Sex Assigned At Not on file [place] Start: 01-15-2021 None [facility] Start: 01-15-2021 Homeless [facility] Start: 01-15-2021 Cigarettes [facility] Start: 1950 Sex Assigned At Female [facility] Start: 03-09-2024 Tobacco smoking stat RUSTIS Current Light tobacco smoker [facility] Sex Female [facility] Medical Equipment Procedure Code Equipment Code Equipment Origin al Text Equipment Identifier Dates Test three times a day & as needed for symptoms of irregular blood glucose. [id number] Start: 03-03-2019 Clinical Notes 02-17-2019 to 12-23-2024 Note Date & Type Note Facility 12-23-2024 Radiology Diagnostic study note [facility] Imaging Services [address] [place], [place] [address] Lumbar Spine 2 or 3 Views MR#: [id number] Acct: [id number] Name: CHRISTY FRANCIS Rep #: [id number] : 1950 F 74 From: Pamela Bullock MD PCP: Dr. Marielos Perla, DO Status: REG CLI Study:Lumbar Spine 2 or 3 Views Date of Exam: 12/22/24 Exam# [id number] Ordering Dr: Rio Young EXAM: XR Lumbosacral Spine, 2 or 3 Views CLINICAL INDICATION: LLE WEAKNESS, NEUROPATHY TECHNIQUE: Frontal and lateral views of the lumbar spine and sacrum. COMPARISON: No relevant prior studies available. FINDINGS: VERTEBRAE: Degenerative facet arthropathy throughout the lumbar spine, most prominent in the lower lumbar spine. Normal alignment. No acute fracture. SACRUM/COCCYX: Unremarkable as visualized. No acute fracture. DISC SPACES: Degenerative disc disease throughout the lumbar spine. SOFT TISSUES: Unremarkable. VASCULATURE: Scattered calcified atherosclerotic disease of aorta. RAD/Lumbar Spine 2 or 3 Views IMPRESSION: 1. No acute fracture. 2. If symptoms persist, further evaluation with MRI is recommended. 3. Degenerative changes lumbar spine as described. Reading Location: [facility] CC: SKYLER Watson; Dr. Marielos Perla DO ~ Hay Sorter: Signed [facility] 11-29-2024 Radiology Diagnostic study note [facility] Imaging Services [address] [place] [address] [id number] Pelvic w/ Transvaginal MR#: [id number] Acct: [id number] Name: CHRISTY FRANCIS Rep #: [id number] : 1950 F 74 From: Randy Reese MD PCP: Dr. Marielos Perla DO Status: REG CLI Study:Pelvic w/ Transvaginal Date of Exam: 11/29/24 Exam# [id number] Ordering Dr: Tresa Perla sa, DO PROCEDURE: PELVIC W/ TRANSVAGINAL REASON FOR EXAM: PAIN RLQ TECHNIQUE: PELVIC W/ TRANSVAGINAL COMPARISON: None FINDINGS: Measurements: Uterus: 8.1 cm x 5.2 cm x 3.6 cm with a volume of 77.26 mL Endometrial Thickness: 6.6 mm. This is thickened for the patient's postmenopausal state. Right Ovary: Nonvisualized. Left Ovary: Nonvisualized. TRANSABDOMINAL: Uterus: There is a 1.4 cm 1.6 cm 1.6 cm fundal fibroid. Endometrium: Endometrium is thickened measuring 6.6 mm for the patient's postmenopausal phase. Clinical correlation recommended. Right ovary: Not visualized. Left ovary: Not visualized. Other: No large pelvic mass identified. Transvaginal sonography was performed to better visualize the endometrium. TRANSVAGINAL: Uterus: Anteverted. 1.4 cm x 1.6 cm 1.6 cm fundal fibroid. Endometrium: Endometrium is thickened measuring 6.6 mm. Further evaluation recommended. Right ovary: Not visualized. Left ovary: Not visualized. Other adnexal findings: Cul-de-sac: No free intraperitoneal fluid identified. Tenderness: No tenderness US/Pelvic w/ Transvaginal IMPRESSION: Endometrial thickening. Clinical correlation recommended. Reading Location: [id number] CC: Dr. Marielos Perla, DO ~ Hay Sorter: Signed [facility] 11-02-2024 Evaluation note Diagnosis Onset Date Resolution Severe left ventricular systolic dysfunction (LVSD) acute November 02 10:11am Essential hypertension chronic November 02, 2024 10:11am History of coronary artery bypass graft x February, chronic November 02, 2024 10:11am HLD (hyperlipidemia) chronic November 02, 2024 10:11am PAD (peripheral artery disease) chronic November 02, 2024 10:11am [facility] Work Phone: 1(958) 907-166407-17-2025 Evaluation note* Diagnosis Onset Date Resolution Status Admit Date Severe left ventricular systolic dysfunction (LVSD) acute November 02, 2024 10:11am Essential hypertension chronic 2024 10:11am History of coronary artery bypass graft x February, chronic November 02, 2024 10:11am HLD (hyperlipidemia) chronic November 02, 2024 10:11am PAD (peripheral artery disease) chronic November 02, 2024 10:11am Lower extremity neuropathy acute December 12, 2024 10:37am PAD (peripheral artery disease) chronic December 12 10:37am [facility] Work Phone: 1(489) 250-319006-02-2025 Radiology Diagnostic study note [facility] Imaging Services [address] [place] [address] L/S Spine Min 4 Views MR#: [id number] Acct: [id number] Name: CHRISTY FRANCIS Rep #: [id number] : 1950 F 74 From: Adrianna Serrano MD PCP: Dr. Marielos Perla DO Status: REG CLI Study:L/S Spine Min 4 Views Date of Exam: 09/18/24 Exam# [id number] Ordering Dr: Ra javier Mckeon PROCEDURE: L/S SPINE MIN 4 VIEWS 09/18/2024 REASON FOR EXAM: PAIN, SCIATICA TECHNIQUE: Four views of the lumbar spine COMPARISON: None FINDINGS: There are 5 vkb-lct-asfmwji lumbar-type vertebral bodies. The pars are not [...] on L5 is likely degenerative. Reading Location: [id number] CC: JOHNATHON Mckeon; Dr. Marielos Perla DO ~ Hay Sorter: Signed [facility]02-17-2025 Evaluation note* Diagnosis Onset Date Resolution Status Admit Date Essential hypertension chronic Fe bruary 2024 10:41am History of coronary artery bypass graft x 3 February, chronic June 05, 2024 10:41am HLD (hyperlipidemia) chronic Febr uary 2024 10:41am PAD (peripheral artery disease) chronic June 05, 025 10:41am Shortness of breath chronic Febru kristine 2024 10:41am [facility] Work Phone: 1(466) 529-912411-04-[address] [facility] Medical Records Department [address] [place] [address] Discharge Summary 02/21/24 1153 MR#: [id number] Acct: [id number] Name: CHRISTY FRANCIS Rep #: [id number] : 1950 74 From: Kaushik Castro MD PCP: Dr. Marielos Perla, DO Status:ADM BRIAN Location: [place] [address] Providers Date of Admission: 02/19/24 Date of Discharge: 02/21/24 Primary Care Physician: Dr. Marielos Perla, DO Consultations 02/20/24 08:50 Consult: Cardiology Routine [...] Pain: Patient placed on a monitored bed [place] had so far been ruled out with serial cardiac enzymes. Nuclear stress test has been ordered for 02/21/2024. Patient has significant cardiac history including previous CABG and is seen by Dr. Anedrson. Patient requested a consultation, consult subsequently placed [...] Adjusted patient's long acting insulin, also placed Accu- Cheks a.c. and at bedtime and covered with [...] tablet,delayed release 81 mg PO DAILY heart health 12/15/13 nitroglycerin 0.4 mg sublingual tablet 0.4 [...] 30.1, MCHC 32.7, RDW (more content not included)...[facility]11-01-2019 Evaluation note* Diagnosis Onset Date Resolution Status Chest pain acute Essential hypertension acute History of coronary artery bypass graft x February, acute HLD (hyperlipidemia) chronic PAD (peripheral artery disease) chronic [facility] Work Phone: 1(811) 871-841011-01-2019 Evaluation note* Diagnosis Onset Date Resolution Status Chest pain acute Essential hypertension acute History of coronary artery bypass graft x February, acute HLD (hyperlipidemia) chronic PAD (peripheral artery disease) chronic Essential hypertension acute History of coronary artery bypass graft x February, acute Palpitations acute HLD (hyperlipidemia) chronic PAD (peripheral artery disease) [facility] Work Phone: 1(932) 384-513611-01-2019 Evaluation note* Diagnosis Onset Date Resolution Status Admit Date Severe left ventricular systolic dysfunction (LVSD) acute November 02, 2024 10:11am Essential hypertension chronic Ju 2024 10:11am History of coronary artery bypass graft x February, chronic November 02, 2024 10:11am HLD (hyperlipidemia) chronic November 02, 2024 10:11am PAD (peripheral artery disease) chronic November 02, 2024 10:11am [facility] Work Phone: Evaluation noteNo assessment information available [facility] Work Phone: Evaluation note* Diagnosis Onset Date Resolution Status Right rotator cuff tear acut e [facility] Work Phone: Hospital Discharge instructions Additional Instructions X-rays of your shoulder knee showed no broken bones. Rest, ice, and use the Percocet as needed. After that you can take Tylenol or Motrin. If symptoms are not improving in 1 week please see your primary care doctor for reevaluation.[facility] Work Phone: Reason for referral (narrative)No reason for referral information available[facility] Work Phone: Discharge Instructions * Discharge Instr - Lab* Yamilet Nogueira RN - 03/02/2019 3:13 PM EST Your physician has ordered skilled home care services for you. Your home care will be provided by: [facility] [phone] * Additional Instructions* Lukas Moise, CELL REPAIRER - MOLD MAKING PLASTICS SHEETS SUPERVISOR - 03/03/2019 When to call the surgeon: If any symptoms concern you, call us: -Dr. Taylor/Dr. Medina's office -Phone number [phone] -[address] [address] [place] Notify us if the following occur: [...] Everywhere. * Coronary Artery Bypass Graft: Post-op (Serbian) documented in this encounter History of Present [...] medications would be and if reasonable with [facility] if not then will redo [...] Date 03/03/19 0000 - 03/03/19 2359 Shift 0374-7089 0340-6117 2892-1064 24 Hour Total INTAKE P.O. 120 120 [...] gms)/meal Problem List: Principal Problem: CAD in [place] artery Active Problems: S/P CABG x 3 Hyperkalemia Diabetes mellitus (HCC) Hypertension HFrEF (heart failure with reduced ejection fraction) ([facility]) Resolved Problems: * No resolved hospital problems. [...] 03/02/2019 3:28 PM EST Physical Therapy Facility/Department: [facility] Daily Treatment Note [...] of Arthritis, Blood circulation, collateral, CAD in [place] artery, Diabetes mellitus (HCC), HFrEF (heart failure with reduced ejection fraction) ([facility]), and Hypertension. has a past surgical history [...] Treatment Minutes: 27 Minutes(FAx1, GA x1 ) Clint Gresham, SPTA Seun Baker, FELTING MACHINE OPERATOR * Oren Adams MD - 03/02/2019 9:21 [...] []Injected [x]Non-Injected / Pinnae []Normal []Other/ Dentitian [][place] Teeth []Dentures Oral Mucosa [][place] [x]Moist []Dry/ Oral ETT []Present [x]Absent Neck: [...] [x]Absent/ [place] ([]RUE []RLE []LUE []LLE) Neurologic: RUBY []Yes [x]No Corneal reflexes []Present []Absent / [...] ABG: Recent Labs 02/27/19 1545 PHART 7.274* [id number] 46.0* PO2ART 270.6* [id number] 98.8 CBC: Recent Labs 03/01/19 0015 03/02/19 [...] Portable Ordering Physician GRANT TAYLOR Accession Number [id number] CPT4 Codes 04028 () Reason For Exam sob Report CLINICAL INFORMATION: Shortness of breath. Status post open heart surgery. CHEST X-RAY, PORTABLE, 0537 hours: An AP portable view is compared to the prior examination of previous day. There is no change in the mediastinal or left lower hemithorax chest tubes or right internal jugular [place] introducer sheath. There is stable slightly limited [...] avoid intravascular fluid depletion Case discussed with [employer] [facility]MINOLOG[facility] from [facility], ([place]) Critical care will sign off for [...] minutes so far today. * Minoo Encinas, CELL REPAIRER - SUPERVISOR CONTINUOUS WELD PIPE MILL - 03/02/2019 4:05 AM EST Cardiothoracic Surgery [...] Daily insulin lispro 6 Units Subcutaneous TID insulin lispro 0-12 Units Subcutaneous TID metoprolol tartrate 25 mg Oral BID pantoprazole [...] will hold off for now. EF: 45% [facility]; intraop DONNELL pending-02/27 POD # 3 Core [...] with home health Planned Disposition: patient from [facility]; home when medically stable [x] Home with [...] of Arthritis, Blood circulation, collateral, CAD in [place] artery, Diabetes mellitus (HCC), HFrEF (heart failure with reduced ejection fraction) ([facility]), and Hypertension. 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 AM-PAC Score [facility] Inpatient Daily Activity Raw Score: 21 (03/01/19 1445) [facility] Inpatient ADL T-Scale Score : 44.27 (03/01/19 1445) ADL Inpatient [facility] 0-100% Score: 32.79 (03/01/19 1445) ADL Inpatient [facility] G-Code Modifier : CJ (03/01/191444) Goals Short [...] Plan of Care supervision is transferred to [facility] Occupational Therapist. Goals and/or treatment plan was established in collaboration with patient/family/other representatives. Heather Zhang OTR/L * Jos Baker, FELTING MACHINE OPERATOR - 03/01/2019 1:48 PM EST Physical Therapy Facility/Department: [facility] Daily Treatment Note [...] of Arthritis, Blood circulation, collateral, CAD in [place] artery, Diabetes mellitus (HCC), HFrEF (heart failure with reduced ejection fraction) ([facility]), and Hypertension. has a past surgical history [...] on own throughout day. G-Code OutComes Score [facility] Score [facility] Inpatient Mobility Raw Score : 15 (03/01/191346) [facility] Inpatient T-Scale Score : 39.45 (03/01/191346) Mobility Inpatient CMS 0-100% Score: 57.7 (03/01/191346) Mobility Inpatient CMS G-Code Modifier : CK (03/01/191346) Goals Short [...] Conrad MD - 03/01/2019 10:53 AM EST [facility] [address] [address] Dept: [phone] Loc: [phone] Visit Date: 03/01/2019 HPI: Christy Francis is [...] Date Arthritis Blood circulation, collateral CAD in [place] artery 02/22/2019 Diabetes mellitus (HCC) HFrEF (heart failure with reduced ejection fraction) (HCC) Hypertension Past Surgical History: Procedure Laterality Date CHOLECYSTECTOMY JOINT REPLACEMENT Current Facility-Administered Medications Medication Dose Route Frequency Provider Last Rate Last Dose heparin (porcine) injection 5,000 Units 5,000 Units Subcutaneous BID DIANA Dial SUPERVISOR CONTINUOUS WELD PIPE MILL 5,000 Units at 03/01/19 0856 metoprolol tartrate (LOPRESSOR) tablet 25 mg 25 mg Oral BID Lukas DIANA Moise - MOLD MAKING PLASTICS SHEETS SUPERVISOR 25 mg at 856 pantoprazole (PROTONIX) tablet 40 mg 40 mg Oral QAM AC Lukas Moise APRN - MOLD MAKING PLASTICS SHEETS SUPERVISOR 40 mg at 03/01/19 0709 FLUoxetine (PROZAC) capsule 20 mg 20 mg Oral Daily DIANA Moore MOLD MAKING PLASTICS SHEETS SUPERVISOR 20 mg at 03/01/19 0856 0.45 % [...] Grant Taylor MD 1 drop at 02/27/19 3263 Allergies Allergen Reactions Cefazolin Hives and Shortness [...] Assessment: Type 2 DM with hyperglycemia with retirement insulin use s/p cabg 02/27 Will likely [...] []Injected [x]Non-Injected / Pinnae []Normal []Other/ Dentitian [][place] Teeth []Dentures Oral Mucosa [][place] [x]Moist []Dry/ Oral ETT []Present [x]Absent Neck: [...] [x]Absent/ [place] ([]RUE []RLE []LUE []LLE) Neurologic: RUBY []Yes [x]No Corneal reflexes []Present []Absent / [...] ABG: Recent Labs 02/27/19 1545 PHART 7.274* [id number] 46.0* PO2ART 270.6* T9SDNEVP 98.8 CBC: Recent Labs 02/28/19 0404 03/01/19 [...] Portable Ordering Physician GRANT TAYLOR Accession Number [id number] CPT4 Codes 50802 () Reason For Exam sob Report CLINICAL INFORMATION: Shortness of breath. Status post open heart surgery. CHEST X-RAY, PORTABLE, 0537 hours: An AP portable view is compared to the prior examination of previous day. There is no change in the mediastinal or left lower hemithorax chest tubes or right internal jugular [place] introducer sheath. There is stable slightly limited [...] minutes so far today. * Minoo Encinas, CELL REPAIRER - SUPERVISOR CONTINUOUS WELD PIPE MILL - 03/01/2019 4:54 AM EST Cardiothoracic Surgery [...] kg/m I/O: Date 03/01/19 0000 - 03/01/19 235 Shift 2603-0400 5458-6973 9567-7423 24 Hour Total INTAKE Shift Total(mL/kg) OUTPUT [...] this morning may increase BB. EF: 45% [facility]; intraop DONNELL pending-02/27 POD # 2 Chest [...] with home health Planned Disposition: patient from [facility]; home when medically stable [x] Home with [...] mg Oral Daily Active Problems: CAD in [place] artery Diabetes mellitus (HCC) Hypertension HFrEF (heart failure with reduced ejection fraction) ([facility]) Resolved Problems: * No resolved hospital problems. [...] SR-ST 90-120s DONNELL: In process Last Echo: [facility] LVEF 45%. Mild MAC with mild MR Last stress test: [facility] NST Stress Induced Ischemia involving portions of [...] left. 8. Dispo - Pt lives in [place] and states she intends to follow up [...] up weekly Nutrition Assessment: Pt presents from [place] for evaluation for PCI vs CABG after presenting to [place] ED with chest pressure and having abnormal [...] High Nutrient Needs: Estimated Daily Total Kcal: 7631-8056 Estimated Daily Protein (g): 48-57 Estimated Daily [...] Asaf=19. Chest tubex3. Labs noted: ^BUN-25, ^potassium-7.0-->6.7, wohnqfi-12-537, HgA1C on 02/25-10.3% Wound Type: Surgical Wound [...] confirm weight change, will continue to monitor [place] Body Wt: 105 lb (47.6 kg), % [place] Body 168% BMI Classification: BMI 30.0 - [...] 02/28/2019 12:03 PM EST Physical Therapy Facility/Department: [facility] Initial Assessment NAME: Christy Francis : 1950 Date of Service: 02/28/2019 Discharge Recommendations: Home independently Assessment Body structures, Functions, Activity limitations: Decreased strength;Decreased endurance;Decreased functional mobility ;Decreased safe awareness;Decreased balance Assessment: Pt admitted for Pod#1 CABG x 3. 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 Pt this date [...] of Arthritis, Blood circulation, collateral, CAD in [place] artery, Diabetes mellitus (HCC), HFrEF (heart failure with reduced ejection fraction) ([facility]), and Hypertension. 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 Goals and/or treatment plan was established in collaboration with patient/family/other (specify). Mil Reddy PT * Liz Diaz, CELL REPAIRER - SUPERVISOR CONTINUOUS WELD PIPE MILL - 02/28/2019 11:20 AM EST ENDOCRINOLOGY PROGRESS NOTE Patient: Christy Francis Unit/Bed:[id number]/1HLU04 Date of : 1950 Admit date: 02/22/2019 [...] Assessment: Type 2 DM with hyperglycemia with manager long term care insulin use Lab Results Component Value Date LABA1C 10.3 (H) 02/25/2019 Multivessel CAD with Angina - [facility] on 02/22 concerning for multivessel disease - S/p CABG yesterday Plan: As outpatient prior to this admission: Temporary Staff Accountant: None Diabetes Medications/regimen: Metformin 500 mg daily [...] to subcutaneous insulin when rate lower * Chantlel Álvarez MD - 02/28/2019 11:11 AM EST [...] []Injected [x]Non-Injected Pinnae [x]Normal []Other Oral Mucosa [x][place] [x]Moist []Dry Oral ETT []Present [x]Absent Neck: [...] [x]Absent [place] ([x]RUE [x]RLE [x]LUE [x]LLE) Neurologic: RUBY []Yes [x]No Corneal reflexes []Present []Absent Plantar [...] prophylaxis Patient Active Problem List: CAD in [place] artery Diabetes mellitus (HCC) Hypertension HFrEF (heart failure with reduced ejection fraction) ([facility]) CHANTELL ÁLVAREZ MD * Lukas Moise APRN [...] Date 02/28/19 0000 - 02/28/19 2359 Shift 5705-4503 9486-4282 0248-3083 24 Hour Total INTAKE I.V.(mL/kg/hr) 2220(3.5) 2220 [...] LIQUID; Problem List: Active Problems: CAD in [place] artery Diabetes mellitus (HCC) Hypertension HFrEF (heart failure with reduced ejection fraction) ([facility]) Resolved Problems: * No resolved hospital problems. [...] EST Hospitalist Progress Note 02/27/2019 10:49 AM [phone]: Please page me for patient care issues. [phone]: Please page IMS night Hospitalist for any issues. Subjective: Admit [...] of Hospitalist Medicine Inpatient Medical Services PAGER: [phone] * Sixto Salamanca MD - 02/26/2019 1:31 [...] Assessment: Type 2 DM with hyperglycemia with retirement insulin use Lab Results Component Value Date LABA1C 10.3 (H) 02/25/2019 Multivessel CAD with Angina - [facility] on 02/22 concerning for multivessel disease - Planning for possible CABG on Wednesday Plan: As outpatient prior to this admission: Temporary Staff Accountant: None Diabetes Medications/regimen: Metformin 500 mg daily [...] 2-4 weeks after discharge * Ronda Carmona, CELL REPAIRER - MOLD MAKING PLASTICS SHEETS SUPERVISOR - 02/26/2019 11:23 AM EST Cardiothoracic Surgery Progress Note 02/26/2019 Subjective: Admit Date: 02/22/2019 Interval History: Transferred from [place](see consult note) Multivessel CAD plan for CABG [...] Date 02/26/19 0000 - 02/26/19 2359 Shift 8738-6853 1643-2631 7012-1033 24 Hour Total INTAKE P.O. 240 240 [...] WC insulin lispro 0-12 Units Subcutaneous TID atorvastatin 80 mg Oral Nightly sodium chloride [...] Specified Problem List: Active Problems: CAD in [place] artery Diabetes mellitus (HCC) Hypertension HFrEF (heart failure with reduced ejection fraction) ([facility]) Resolved Problems: * No resolved hospital problems. [...] tablet 1 tablet, 1 tablet,Oral, Q12H PRN, DIANA Terrell, 1 tablet at 02/25/19 1613 insulin glargine (LANTUS) injection vial 25 Units, 25 Units, Subcutaneous, Nightly, Sixto Salamanca MD, 25 Units at 02/25/192119 insulin lispro (HUMALOG) injection vial 10 Units, 10 Units, Subcutaneous, TID , Sixto Salamanca MD, 10 Units at 02/26/19 0721 insulin lispro (HUMALOG) injection vial 0-12 Units, 0-12 Units, Subcutaneous, TID , Mil Pettit MD, 8 Units at 02/26/19 07 atorvastatin (LIPITOR) tablet 80 mg, 80 mg, Oral, Nightly, Timmy Basilio MD, 80 mg at 02/25/192118 sodium chloride flush 0.9 % injection 10 mL, 10 mL, Intravenous, 2 times per day, Brigido Conrad MD, 10 mL at 02/26/19 08 sodium chloride flush 0.9 % injection [...] Assessment: Type 2 DM with hyperglycemia with manager long term care insulin use Lab Results Component Value Date LABA1C 10.3 (H) 02/25/2019 Multivessel CAD with Angina - [facility] on 02/22 concerning for multivessel disease - Planning for possible CABG on Wednesday Plan: As outpatient prior to this admission: Temporary Staff Accountant: None Diabetes Medications/regimen: Metformin 500 mg daily [...] 2-4 weeks after discharge * Harry Ronda Mia, CELL REPAIRER - MOLD MAKING PLASTICS SHEETS SUPERVISOR - 02/25/2019 10:52 AM EST Cardiothoracic Surgery Progress Note 02/25/2019 Subjective: Admit Date: 02/22/2019 Interval History: Transferred from [place](see consult note) Multivessel CAD plan for CABG [...] Date 02/25/19 0000 - 02/25/19 2359 Shift 2354-7410 8529-4197 0267-9689 24 Hour Total INTAKE P.O. 200 300 [...] CONTROL; Problem List: Active Problems: CAD in [place] artery Diabetes mellitus (HCC) Hypertension HFrEF (heart failure with reduced ejection fraction) ([facility]) Resolved Problems: * No resolved hospital problems. [...] AM Subjective: Admit Date: 02/22/2019 PCP: LIANET PEETRS Advance Directive: Full Code Interval History: She [...] vial 6 Units, 0.08 Units/kg, Subcutaneous, TID , Mil Pettit MD, 6 Units at 02/24/19 1746 insulin glargine (LANTUS) injection vial 16 Units, 16 Units, Subcutaneous, Nightly, Shreyas Shaw DO, 16 Units at 02/24/19 2213 insulin lispro (HUMALOG) injection vial 0-12 Units, 0-12 Units, Subcutaneous, TID , Mil Pettit MD, 6 Units at 02/24/19 1748 atorvastatin (LIPITOR) tablet 80 mg, 80 mg, Oral, Nightly, Timmy Basilio MD, 80 mg at 02/24/19 1959 sodium chloride flush 0.9 % injection 10 [...] planning: TBD Jayson Metzger MD * Lukas Moise, CELL REPAIRER - MOLD MAKING PLASTICS SHEETS SUPERVISOR - 02/24/2019 2:54 PM EST Cardiothoracic Surgery Progress Note 02/24/2019 Subjective: Admit Date: 02/22/2019 Interval History: Transferred from [place](see consult note) Multivessel CAD plan for CABG [...] BMI 33.35 kg/m I/O: Date 02/24/19 - 02/24/192358 Shift 2615-0545 8561-8999 8544-8953 24 Hour Total INTAKE P.O. 720 783 0379 Shift Total(mL/kg) 400(5) 720(9) 1120(14) OUTPUT Urine(mL/kg/hr) [...] CONTROL; Problem List: Active Problems: CAD in [place] artery Diabetes mellitus (HCC) Hypertension HFrEF (heart failure with reduced ejection fraction) ([facility]) Resolved Problems: * No resolved hospital problems. [...] Date 02/24/19 0000 - 02/24/19 2359 Shift [id number] 24 Hour Total INTAKE P.O.(mL/kg/hr) 400(0.6) 400 [...] 10 mg Oral Daily Recent Labs 02/23/19 06 WBC 8.6 HGB 15.1 PLT 212 Recent Labs 02/23/19 06 NA 136 K 4.8 CL 106 CO2 21* BUN 24* CREATININE 1.03 GLUCOSE 288* Recent Labs 02/23/19624 AST 49* ALT 53 [...] neurologic deficits. Assessment Active Problems: CAD in [place] artery Diabetes mellitus (HCC) Hypertension HFrEF (heart failure with reduced ejection fraction) ([facility]) Resolved Problems: * No resolved hospital problems. [...] be monitored and followed by the diet x ray service technician. Keren Banks DT * Mil Pettit MD - 02/23/2019 9:52 AM EST Hospitalist Progress Note 02/23/2019 9:52 AM Subjective: Admit Date: 02/22/2019 PCP: LIANET PETERS Interval History: pt feels ok Some sore throat No overnight issues. Deniesabdominal pain, nausea, vomiting, diarrhea, constipation, fevers, or chills. DIET CARB CONTROL; Date 02/23/19 0000 - 02/23/19 2359 Shift [id number] [id number] [id number] 24 Hour Total INTAKE Shift Total(mL/kg) OUTPUT [...] HGB 15.1 PLT 212 Recent Labs 02/23/19 06 NA 136 K 4.8 CL 106 CO2 [...] neurologic deficits. Assessment Active Problems: CAD in [place] artery Diabetes mellitus ([facility]) Hypertension HFrEF (heart failure with reduced ejection fraction) ([facility]) Resolved Problems: * No resolved hospital problems. * Await CTS and cards review of images, surgical planning Increase insulin Supportive care otherwise See orders, continue POC Advance Directive: Full Code Suzan Trevino Hospitalist documented in this encounter Assessments Diagnosis CAD in [place] artery- Primary Coronary atherosclerosis of [place] coronary artery S/P CABG x 3 Postsurgical aortocoronary bypass status Type 2 diabetes mellitus with other circulatory complication, with long-term current use of insulin ([facility]) Diabetes mellitus ([facility]) Type II or unspecified type diabetes mellitus without mention of complication, not stated as uncontrolled Hypertension Unspecified essential hypertension HFrEF (heart failure with reduced ejection fraction) ([facility]) Hyperkalemia Hyperpotassemia Advance Directives No Advanced Directives Records FoundDocuments on File Type Date Recorded Patient Glove Examiner Expl anation Advance Directives and Living Will Power of Operations Superintendent Latest Code Status on File Code Status Date Activated Date Inactivated Comments Full Code 02/27/2019 4:35 PM Full Code 02/22/2019 3:10 PM 02/27/2019 4:35 PM Advance Directive Response Recorded Date/ Time Advance Directives Yes May 8:25am Living Will Yes June 03 8:25am Power of Operations Superintendent Yes June 03, 2021 8:25am Advance Directive Response Recorded Date/ Time Advance Directives Yes May 8:25am Living Will No March 29 5:45pm Power of Operations Superintendent No March 29, 2022 5:45pm Advance Directive Response Recorded Date/ Time Advance Directives Yes May 9:25am Living Will No March 29 6:45pm Power of Operations Superintendent No March 29, 2022 6:45pm Advance Directive Response Recorded Date/ Time Advance Directives Yes May 9:25am Advance Directive Response Recorded Date/ Time Living Will No October 01, 2023 2:53pm Do you have a Healthcare Power of Operations Superintendent? No October 01, 2023 2:53pm Advance Directives Yes May 9:25am Summary Purpose Family History No Family History Records Found Relationship Condition Age at Onset Recorded Date/T [...] Reason for Visit Admit Date Essential hypertension February 17th, 20 25 10:41am History of coronary artery bypass graft [...] 11am PAD (peripheral artery disease) October 10:11am Chief Complaint Admit Date BACK PAIN September 18, 2024 12:30 pm 1 Y FU November 02, 2024 10:1 1am PELVIC PAIN, RLQ November 29, 2024 8: 38am Chief Complaint Admit Date BACK PAIN September 18, 2024 12:30 pm 1 Y FU November 02, 2024 10:1 1am PELVIC PAIN, RLQ November 29, 2024 8: 38am EORDER December 06, 2024 9: 05am PAD December 12, 2024 10 :37am Reason for Visit Admit Date Severe left ventricular systolic dysfunc tion (LVSD) November 02, 2024 10:11am Essential hypertension November 02, 2024 1 0:11am History of coronary artery bypass graft x 3 November 02, 2024 10:11am HLD (hyperlipidemia) November 02, 2024 10: 11am PAD (peripheral artery disease) October 10:11am Lower extremity neuropathy December 12, 2024 10:37am PAD (peripheral artery disease) November 182024 10:37am Chief Complaint Admit Date BACK PAIN September 18, 2024 12:30 pm 1 Y FU November 02, 2024 10:1 1am PELVIC PAIN, RLQ November 29, 2024 8: 38am EORDER December 06, 2024 9: 05am PAD December 12, 2024 10 :37am CLAUDICATION December 22, 2024 9:26am Chief Complaint Admit Date BACK PAIN September 18, 2024 12:30 pm 1 Y FU November 02, 2024 10:1 1am PELVIC PAIN, RLQ November 29, 2024 8: 38am EORDER December 06, 2024 9: 05am PAD December 12, 2024 10 :37am CLAUDICATION December 22, 2024 9:26am Discuss Results January 03, 2025 9:20am Additional Source Comments INFORMATION SOURCE (unrecogn ized section and content) DATE CREATED AUTHOR 05/04/2019 [employer] DATE CREATED AUTHOR AUTHOR'S ORGANIZ ATION 01/06/2025 [facility] Goals (unrecognized section and content) Goals [...] DO Primary Care Provider Active Charlie Johnson [employer], [employer]-C Attending Provider, Referring Pro vider Active Team [...] Perla DO Primary Care Provider, Referring P cayetano Active Bruce Dubon MD Attending Provider Active Team Status: Active Member Role Status Dates Dr. Marielos Perla , DO Primary Care Provider Active Bruce Dubon MD Attending Provider, Referring Prov ider Active Team Status: Inactive Member Role Status Dates Dr. Marielos Perla DO Primary Care Provider Active Dr. Moose Singh MD Attending Provider Active Team Status: Inactive Member Role Status Dates Dr. Marielos Perla DO Primary Care Provider, Referring P rovider Active Kaley Son [employer], [employer]MIN[employer]-C Attending Provider Active Team Status: Inactive Member [...] Marielos Perla DO Primary Care Provider Active JOHNATHON Jordan Attending Provider, Referring Prov ider Active Team Status: Inactive Member Role Status Dates Dr. Marielos Perla DO Primary Care Provider Active Start: June 05, 2024 End: June 05, 2024 Dr. Marielos Perla DO Referring Provider Active St art: June 05, 2024 End: June 05, 2024 Charlie Johnson [employer], [employer]MIN[employer]Y-C Attending Provider Active S tart: June 05, 2024 End: June 05, 2024 Team Status: Inactive Member Role Status Dates Dr. Marielos Perla DO Primary Care Provider Active Start: September 18, 2024 End: September 18, 2024 JOHNATHON Jordan Attending Provider Active St art: September 18, 2024 End: September 18, 2024 JOHNATHON Jordan Referring Provider Active St art: September 18, 2024 End: September 18, 2024 Team Status: Active Member Role/Relationship Status Dates Dr. Marielos Perla DO Primary Care Provider Active Team Status: Inactive Member Role/Relationship Status Dates Dr. Marielos Perla DO Primary Care Provider Active Start: September 18, 2024 End: September 18, 2024 JOHNATHON Jordan Attending Provider Active St art: September 18, 2024 End: September 18, 2024 Rand Mike , [employer]-C Referring Provider Active St art: September 18, [...] November 02, 2024 End: November 02, 2024 Team Status: Inactive Member Role/Relationship Status Dates Dr. Marielos Perla DO Primary Care Provider Active Start: November 02, 2024 End: November 02, 2024 Jennifer HOLLAND, PA Attending Provider Active Start: November 02, 2024 End: November 02, 2024 Jennifer HOLLAND, PA Referring Provider Active Start: November 02, 2024 End: November 02, 2024 Team Status: Inactive Member Role/Relationship Status Dates Dr. Marielos Perla DO Primary Care Provider Active Start: November 29, 2024 End: November 29, 2024 Dr. Marielos Perla DO Attending Provider Active St art: November 29, 2024 End: November 29, 2024 Dr. Marielos ePrla DO Referring Provider Active St art: November 29, 2024 End: November 29, 2024 Team Status: Active Member Role/Relationship Status Dates Dr. Marielos Perla DO Primary Care Provider Active Start: December 06, 2024 Jennifer HOLLAND, PA Attending Provider Active Start: December 06, 2024 Jennifer HOLLAND, PA Referring Provider Active Start: December 06, 2024 Team Status: Inactive Member Role/Relationship Status Dates Dr. Marielos Perla DO Primary Care Provider Active Start: December 12, 2024 End: December 12, 2024 Dr. Marielos Perla DO Referring Provider Active St art: December 12, 2024 End: December 12, 2024 SKYLER Watson Attending Provider Active Star t: December 12, 2024 End: December 12, 2024 Team Status: Inactive Member Role/Relationship Status Dates Dr. Marielos Perla DO Primary Care Provider Active Start: December 06, 2024 End: December 06, 2024 SKYLER Clarke Attending Provider Active Start: December 06, 2024 End: December 06, 2024 SKYLER Clarke Referring Provider Active Start: December 06, 2024 End: December 06, 2024 Team Status: Inactive Member Role/Relationship Status Dates Dr. Marielos Perla DO Primary Care Provider Active Start: December 22, 2024 End: December 22, 2024 SKYLER Watson Attending Provider Active Star t: December 22, 2024 End: December 22, 2024 SKYLER Watson Referring Provider Active Star t: December 22, 2024 End: December 22, 2024 Team Status: Active Member Role/Relationship Status Dates Dr. Marielos Perla DO Primary Care Provider Active Start: December 22, 2024 Dr. Grant Torres MD Attending Provider Active S tart: December 22, 2024 Team Status: Active Member Role/Relationship Status Dates Dr. Marielos Peral DO Primary care physician Active Team Status: Inactive Member Role/Relationship Status Dates Dr. Marielos Perla DO Primary care physician Active Start: September 18, 2024 End: September 18, 2024 JOHNATHON Jordan Attending physician Active S tart: September 18, 2024 End: September 18, 2024 JOHNATHON Jordan Referring Provider Active St art: September 18, 2024 End: September 18, 2024 Team Status: Inactive Member Role/Relationship Status Dates Dr. Marielos Perla DO Primary care physician Active Start: November 02, 2024 End: November 02, 2024 Dr. Marielos Perla DO Referring Provider Active St art: November 02, 2024 End: November 02, 2024 SKYLER Clarke Attending physician Active Start: November 02, 2024 End: November 02, 2024 Team Status: Inactive Member Role/Relationship Status Dates Dr. Marielos Perla DO Primary care physician Active Start: November 02, 2024 End: November 02, 2024 SKYLER Clarke Attending physician Active Start: November 02, 2024 End: November 02, 2024 Jennifer HOLLAND PA Referring Provider Active Start: November 02, 2024 End: November 02, 2024 Team Status: Inactive Member Role/Relationship Status Dates Dr. Marielos Perla DO Primary care physician Active Start: November 29, 2024 End: November 29, 2024 Dr. Marielos Perla DO Attending physician Active S tart: November 29, 2024 End: November 29, 2024 Dr. Marielos Perla DO Referring Provider Active St art: November 29, 2024 End: November 29, 2024 Team Status: Inactive Member Role/Relationship Status Dates Dr. Marielos Perla DO Primary care physician Active Start: December 06, 2024 End: December 06, 2024 Jennifer HOLLAND PA Attending physician Active Start: December 06, 2024 End: December 06, 2024 Jennifer HOLLAND, PA Referring Provider Active Start: December 06, 2024 End: December 06, 2024 Team Status: Inactive Member Role/Relationship Status Dates Dr. Marielos Perla DO Primary care physician Active Start: December 12, 2024 End: December 12, 2024 Dr. Marielos Perla DO Referring Provider Active St art: December 12, 2024 End: December 12, 2024 SKYLER Watson Attending physician Active Sta rt: December 12, 2024 End: December 12, 2024 Team Status: Inactive Member Role/Relationship Status Dates Dr. Marielos Perla DO Primary care physician Active Start: December 22, 2024 End: December 22, 2024 SKYLER Watson Attending physician Active Sta rt: December 22, 2024 End: December 22, 2024 SKYLER Watson Referring Provider Active Star t: December 22, 2024 End: December 22, 2024 Team Status: Active Member Role/Relationship Status Dates Dr. Marielos Perla DO Primary care physician Active Start: December 22, 2024 Dr. Grant Torres MD Attending physician Active Start: December 22, 2024 Team Status: Inactive Member Role/Relationship Status Dates Dr. Marielos Perla DO Primary care physician Active Start: January 03, 2025 End: January 03, 2025 Dr. Marielos Perla DO Referring Provider Active St art: January 03, 2025 End: January 03, 2025 SKYLER Watson Attending physician Active Sta rt: January 03, 2025 End: January 03, 2025 FOR RECORDS PERTAINING TO PATIENTS WHO ARE [...] BE BASED ON THE PRIMARY CLINICAL RECORDS. [facility]. provides no warranty or guarantee of the accuracy or completeness of information in this document.
[2025-01-07 12:58] LABS: Hematocrit 40.1 % (37-47); Hemoglobin 13.4 g/dL (12.0-15.0); Immature Granulocytes Count 0.040 X10^3/uL (0.0-0.0); Mean Corp Hgb Conc 33.4 g/dL (32-36); Mean Corpuscular Volume 95.0 fL (81-99); Mean Platelet Vol. 11.0 fl (6.2-12.0); NRBC Flagged by Analyzer 0 % (0-5); Platelet Count 312 K/mm3 (150-450); RBC Distribution Width CV 15.2 % (11.6-14.6); RBC Distribution Width SD 53.1 fl (35.1-43.9); Red Blood Count 4.22 M/mm3 (4.2-5.4); White Blood Count 11.9 K/mm3 (4.4-11.0)
[2025-01-07 13:22] LABS: Anion Gap 13 (5-15); BUN 29 mg/dL (4-19); BUN/Creat Ratio 22.7 RATIO (10-20); Calcium,Total 9.5 mg/dL (7.6-11.0); Carbon Dioxide 25.3 mmol/L (21.0-32.0); Chloride 99 mmol/L (98-108); D-Dimer Quantitative (DVT/PE) 0.83 FEU/ug/m (0.27-0.49); Estimated Creatinine Clearance 37.37 ml/min (50-250); Glucose 186 mg/dL (70-99); Potassium 4.0 mmol/L (3.3-5.1); Troponin T High Sensitivity 27 ng/L (<=14)
--- NOTE | 2025-01-07 13:24 | CT_ITS ---
PROCEDURE: CTA CHEST W/WO CONTRAST 01/07/2025 REASON FOR EXAM: ELEVATED DDIMER, CP, SOB TECHNIQUE: Procedure Code: [id number] Modality: CT Procedure: CTA CHEST W/WO CONTRAST Multiplanar Sagittal and Coronal images were obtained. 3D reconstructions CONTRAST: Isovue 370 VOLUME: 100 mL One or more dose reduction techniques were used (e.g., Automated exposure control, adjustment of the mA and/or kV according to patient size, use of iterative reconstruction technique). RADIATION DOSE SUMMARY: CTDlvol: 20 mGy DLP: 415 mGycm FINDINGS: Normal aortic arch. No filling defects in the pulmonary arterial tree. Images of the upper abdomen unremarkable. No pericardial fluid. No thoracic aneurysm. Mild coronary artery calcification. No dissection. Although lung windows were not supplied, no masses or consolidation are noted. CT/CTA Chest W/WO Contrast IMPRESSION: No significant abnormality Reading Location[facility]
--- NOTE | 2025-01-07 14:36 | PCM.HP.STD ---
HPI - General General Date of Admission: 01/07/25 Date of Service: 01/07/25 Chief Complaint: chest pain HPI Narrative KINGSLEY GURROLA, is a 74 F with an extensive PMH as outlined who presents via the ED on 01/07/2025 with a complaint of chest pain. The chest pain started at around 9 AM on the morning of admission. Her past medical history includes a history of CABG in 2019 at [facility] as well as peripheral artery disease, hyperlipidemia and type 2 diabetes mellitus. She also admitted to [facility] for several weeks prior to admission. She denied shortness of breath, nausea, vomiting or any other symptoms. Review of systems otherwise negative. She is on baby aspirin and took it on the day of admission. Vitals in the ED were blood pressure 116/61, pulse rate of 97, respiratory rate of 14 and she was saturating at 98% on room air. CBC showed hemoglobin of 13.4, WBC of 11.9 and platelets of 312. D-dimer was elevated at 0.83. Chemistry showed sodium of 138 with potassium of 4 and bicarb of 25.3. Anion gap was 13. Creatinine was 1.26. EKG showed no acute ST changes. CTA of the chest showed no evidence of PE. Chest x-ray showed no acute cardiopulmonary findings. Initial troponin was 27. She has been admitted to be managed for chest pain rule out ACS. [facility] Medical History Severe left ventricular systolic dysfunction (LVSD) Palpitations Right rotator cuff tear Trigger finger of both hands Carpal tunnel syndrome on both sides FHx: cholecystectomy History of left heart catheterization (LHC) (~06/03/21) Essential hypertension Mechanical loosening of prosthetic knee Atherosclerosis of [place] coronary artery of [place] heart without angina pectoris PAD (peripheral artery disease) HLD (hyperlipidemia) Type II diabetes mellitus Home Medications ?Medication ?Instructions ?Recorded ?Last Taken ?Type aspirin 81 mg tablet,delayed 81 mg PO DAILY heart health 12/15/13 06/03/21 History release duloxetine 60 mg capsule,delayed 60 mg PO DAILY mental health 08/20/22 Unknown History release allopurinol 300 mg tablet 300 mg PO BID gout 11/05/23 Unknown History cilostazol 100 mg tablet 100 mg PO BID anti platelet 11/05/23 Unknown History oxycodone-acetaminophen 5 mg-325 1 tab PO TID PRN PRN pain 02/19/24 02/03/24 History mg tablet rosuvastatin 10 mg tablet See Rx Instructions .Route 04/17/24 Unknown Rx .COMPLEX cholesterol #90 TABLETS furosemide 40 mg tablet 40 mg PO DAILY diuretic #90 TABLETS 06/19/24 Unknown Rx glimepiride 4 mg tablet 4 mg PO BID 11/02/24 Unknown History insulin aspar prt-insulin aspart 20 unit subcut QAM diabetes 11/02/24 Unknown History 100 unit/mL (70-30) subcutaneous soln (Novolog Mix 70-30 U-100 Insuln) nitroglycerin 0.4 mg sublingual 0.4 mg sublingual Q5-15M PRN chest 11/02/24 Unknown Rx tablet pain #25 tabs tirzepatide 10 mg/0.5 mL 10 mg subcut .every week 11/02/24 Unknown History subcutaneous pen injector (May) metoprolol tartrate 50 mg tablet 50 mg PO BID blood pressure #180 12/11/24 Unknown Rx tabs isosorbide mononitrate 60 mg 60 mg PO BID 01/07/25 Unknown History tablet,extended release 24 hr losartan 25 mg tablet 25 mg PO DAILY 01/07/25 Unknown History omeprazole 20 mg capsule,delayed 20 mg PO DAILY 01/07/25 Unknown History release Allergy/AdvReac Type Severity Reaction Status Date / Time cefazolin Allergy Shortness Verified 01/07/25 12:23 of breath codeine Allergy Shortness Verified 01/07/25 12:23 of breath morphine Allergy Other Verified 01/07/25 12:23 naloxone (Naloxone) Allergy Shortness Verified 01/07/25 12:23 of breath pentazocine Allergy Shortness Verified 01/07/25 12:23 of breath pentazocine lactate (From Allergy Shortness Verified 01/07/25 12:23 Tal[place]) of breath atorvastatin AdvReac Severe Severe Verified 01/07/25 12:23 myalgias acetaminophen (From Tylenol) AdvReac Nausea Verified 01/07/25 12:23 Family History Mother Heart disease Surgical History History of cholecystectomy History of coronary artery bypass graft x 3 (~02/27/19) History of prosthetic unicompartmental arthroplasty of left knee Social History Smoking Status: Light Smoker (<10/day) alcohol intake: current alcohol intake frequency: holidays/special occasions only substance use type: does not use caffeine: Yes Type: coffee Number of servings: 3 ROS Constitutional Constitutional: Reports fatigue, malaise and weakness; Denies anorexia, chills or fever(s) Eyes Eyes: Denies change in vision ENT HEENT: Denies dysphagia or headache(s) Cardiovascular Cardiovascular: Reports chest pain; Denies claudication, dyspnea on exertion, edema, lightheadedness, orthopnea, palpitations, paroxysmal nocturnal dyspnea, rapid heart rate or syncope Respiratory/Chest Respiratory/Chest: Denies cough, excessive phlegm production, productive cough, shortness of breath at rest or shortness of breath with exertion Gastrointestinal Gastrointestinal: Denies abdominal pain, diarrhea, nausea or vomiting Genitourinary Genitourinary: Denies difficulty urinating Neurologic Neurologic: Denies confusion, dizziness, focal weakness, headache(s), numbness, seizures or syncope Psychiatric Psychiatric: Denies anxiety or depression Vital Signs Vital Signs Vital Signs: 01/07/25 12:23 01/07/25 13:04 01/07/25 13:06 Temperature 97.3 F L Temperature Source Temporal Pulse Rate 106 H 100 Respiratory Rate 18 21 H Respiratory Effort Short of Breath Blood Pressure 128/98 H 121/57 H Blood Pressure Mean 108 76 Pulse Ox 98 96 Oxygen Delivery Method Room Air 01/07/25 14:00 Temperature Temperature Source Pulse Rate 97 Respiratory Rate 24 H Respiratory Effort Blood Pressure 116/61 Blood Pressure Mean 78 Pulse Ox 98 Oxygen Delivery Method Weight Weight: 167 lb 6.4 oz Body Mass Index (BMI) 30.6 Physical Exam Const alert, oriented x3 and no apparent distress General Appearance: cooperative HEENT normocephalic, head/scalp atraumatic, moist oral mucous membranes and oropharynx normal Mouth: oral and palatal mucosa normal Neck No supple Resp Resp Narrative: mildly diminished breath sounds bibasally, no wheezes or crackles. On room air. Cardio regular rate, regular rhythm, S1 normal heart sound, S2 normal heart sound and no murmurs GI normal to inspection, nondistended, normoactive bowel sounds, soft to palpation, non-tender and non-distended Extremity normal to inspection, full ROM and no clubbing, cyanosis or edema Neuro oriented x3, CN's II-XII intact bilaterally, moves all extremities and no focal motor deficits Sensorium / Orientation: awake and alert Motor Exam: strength 5/5 throughout Psych affect normal Results Lab / Micro Data 01/07/25 12:32 01/07/25 12:32 Labs: Laboratory Results - last 24 hr 01/07/25 12:32: WBC 11.9 H, RBC 4.22, Hgb 13.4, Hct 40.1, MCV 95.0, MCH 31.8, MCHC 33.4, RDW Std Deviation 53.1 H, RDW Coeff of Dede 15.2 H, Plt Count 312, MPV 11.0, Immature Gran % (Auto) 0.300, Neut % (Auto) 70.0, Lymph % (Auto) 14.8 L, [place] % (Auto) 9.1, Eos % (Auto) 5.2 H, Baso % (Auto) 0.6, Absolute Neuts (auto) 8.4 H, Absolute Lymphs (auto) 1.76, Nucleated RBC % 0, D-Dimer Quant (PE/DVT) 0.83 H*, Sodium 138, Potassium 4.0, Chloride 99, Carbon Dioxide 25.3, Anion Gap 13, BUN 29 H, Creatinine 1.26 H, Estim Creat Clear Calc 37.37 L, Est GFR (MDRD) Non-Af 45 L, BUN/Creatinine Ratio 22.7 H, Glucose 186 H, Calcium 9.5, Troponin T High Sens 27 H Imaging Radiology Impression Chest X-Ray 01/07/25 12:40 IMPRESSION: NO ACUTE FINDINGS. Reading Location: [id number] Assessment & Plan Assessment/Plan (1) Chest pain: PLAN: Plan #Chest pain to rule out ACS admit to PCU with telemetry admitted with a complaint of chest pain. Initial troponin was 2026. Repeat is pending. EKG showed no acute ST changes. She does have a history of CAD s/p CABG back in 2019 On aspirin and high intensity statin. Started on heparin drip per cardiology. For stress test tomorrow per cardiology. #CAD s/p CABG x 3: On aspirin and high intensity statin. Also on Imdur and metoprolol as well as cilostazol #GERD: On PPI #Benign essential hypertension: On metoprolol #Hyperlipidemia: On statin #Type 2 diabetes mellitus: Hold oral meds. Insulin sliding scale. Accu-Cheks ACHS. Also on tirzepatide. I will hold. Nicotine dependence: Patient says she quit smoking but recently had a in the family and active tobacco smoking. She smokes about 5 cigarettes a day. Counseled to quit. Nicotine patch 14 g daily as needed DVT prophylaxis: lovenox Code status: full code Patient counseled extensively about different types of CODE STATUS including full code, DNR CCA and DNR CCA. She initial did not want to have CPR or intubation but after she was counseled that it did not mean she would be kept on machines forever, she was finally agreeable to being full code. This was all done in presence of her [id number] Lynda Gurrola who is a nurse in the hospital. Patient elects to be full code. Total [id number] time 16 minutes. Charges/Coding Visit Charges Inpatient E&M: 49241 Init Hosp L3 Procedures Hospitalists Procedures: 54694 Advncd Care Plan 30 Min
[2025-01-07] MEDS: Heparin Injection (Vial) 5,000 UNIT/ML VIAL 4000 UNIT IV (14:40)
[2025-01-07] MEDS: HEPARIN/D5w 25,000 UNITS 25,000 UNITS/250 ML IV.SOLN. 9.1 UNITS CONT INF (14:43)
--- NOTE | 2025-01-07 15:28 | CASEMGMT ---
Care Management Face to Face with patient for initial transition planning/care coordination assessment in the ED.? This medical underwriter introduced self and role at [facility]. Patient alert and oriented. Patient willing to participate in assessment and is able to answer all questions appropriately.? Care providers, pharmacy, and demographics verified. Patient?s [id number], Lynda, was also present which patient provided consent for and was also the identified individual patient expressed a preference for communication to go through. Admitting Diagnosis: Chest pain Other diagnosis history: Including but not limited to: Severe left ventricular systolic dysfunction, palpitations, right rotator cuff tear, carpal tunnel syndrome on both sides, history of heart catheterization, essential hypertension, mechanical loosening of prosthetic knee, peripheral artery disease, hyperlipidemia, type 2 diabetes mellitus and atherosclerosis of [place] coronary artery of [place] heart without angina pectoris. PCP: Dr. Marielos Perla Specialists: Cardio: Dr. Anderson and Vascular: Dr. Torres Preferred Pharmacy: [facility] Insurance: Medicare Prescription Benefit: No however patient gets $80 on an [id number] card once every 3 months. Patient may benefit from a prescription discount drug card. Living Will/HPOA: ?Patient indicated she has advanced care directives and stated they should be in [facility]?s medical records, however none is currently showing. Please request. LNOK: Patient is a and has 2 living sons; Matias, of [place] and Jean-Claude, of [place]. Living Arrangements: Patient lives alone in a one-story home with a basement. Patient stated there are 4 steps total leading in/out of her house with a handrail and 12-13 from the first floor to the basement, also with a handrail. Washer and dryer are located in the basement. Patient denied any difficulty ambulating the stairs and also denied any overall environmental barriers. Transportation: Patient drives. DME: Shower chair, grab bars in the shower, grab bars by the toilet, HHS, 2 lift chairs, and the following which member stated she has that used to belong to her but doesn?t use: rollator, manual wheelchair, standard cane, and a lead press operator. HHC: Patient stated she has received PT and OT before through [facility]. SNF/Rehab: Denied. Community Resources: Denied. Behavioral Health History: Denied. Patient goals: Patient wishes to discharge home, denies need for home health care at this time. Patient denies any further needs or concerns at this time. Disposition Plan: admission to acute; RN CM/SW to follow for discharge planning needs that may arise. Keren Myles, DATA TRANSCRIBER, GARMENT FORM ASSEMBLER
[2025-01-07 15:38] LABS: Troponin T High Sens 2 HR 28 ng/L (<=14)
[2025-01-07 16:48] LABS: Troponin T High Sens 4 HR 27 ng/L (<=14)
--- OUTSIDE RECORDS SUMMARY | 2025-01-07 16:56 | XMS RPT_ITS | CCD ---
Author Organization [facility] CliniSyin Care Team Providers Care Conservation Enforcement Officer Name Role Phone Lianet Peters Primary Care Provider Dr. Marielos Perla Primary Care Provider Dr. Marielos Perla Referring Provider MD Bruce Dubon Attending Provider [phone] Marielos Perla Primary Care Provider Dr. Marielos Perla Referring Provider Huy MEDICAL GENETICIST, MEDICAL GENETICIST-C Kaley Attending Provider SKYLER Thakkar Attending Provider Dr. Marielos Perla DO Primary Care Provider Dr. Marielos Perla DO Referring Provider [phone] Elizabeth LOCKHART-CCharlie Attending Provider Mike MEDICAL GENETICIST-CRand Attending Provider Mike MEDICAL GENETICIST-CRand Referring Provider [phone] Marielos Perla DO Primary Care Provider Dr. Marielos Perla DO Referring Provider [phone] Jennifer Thakkar Attending Provider Jennifer Thakkar Referring Provider Dr. Marielos Perla DO Attending Provider [phone] Ava Walker Attending Provider Ava Walker Referring Provider Brian ROMERO, Dr. Rosenthal Attending Provider [phone] Marielos Perla DO Primary Care Physician Mike MEDICAL GENETICIST-C, Rand Attending Physician Jennifer Thakkar Attending Physician [phone] Pan LYLE, Dr. Arceo Attending Physician Ava Walker Attending Physician Brian ROMERO, Dr. Rosenthal Attending Physician Malys, Marielos Referring Unavailable Malys, Marielos Primary Care Unavailable Jarod MEDICAL GENETICISTLamar Attending Unavailable Jopperi, Grant Admitting Unavailable Jopperi, [...] able Malys, Marielos Primary Care Unavailable Malys, Marielos Referring Unavailable Jennifer Thakkar Attending Unavail able Jopperi, Grant Admitting Unavailable Jopperi, Grant Consulting Unavailable Malys, [...] Drug Allergy 9 Hives, Shortness Of Breath [place], [place] (19 sources) Codeine Drug Allergy 9 Hives, Shortness Of Breath [place] (19 sources) Morphine Drug Allergy 9 Hives, Shortness Of Breath [place] (19 sources) Naloxone Drug Allergy 9 Hives, Shortness Of Breath [place] (19 sources) Pentazocine Drug Allergy 9 Hives, Shortness Of Breath [place] (18 sources) Acetaminophen Drug Allergy 2 Nausea [facility] (18 sources) atorvastatin Drug Allergy 2 Severe myalgias [facility] (19 sources) Pentazocine; Translations: [pentazocine lactate] Drug Allergy 2 Shortness of breath [facility] (1 source) Acetaminophen Drug Allergy 5 [facility]ository (1 source) atorvastatin Drug Allergy 5 [facility] (1 source) ceFAZolin Drug Allergy 5 [facility] (1 source) Codeine Drug Allergy 5 [facility] (1 source) Morphine Drug Allergy 5 [facility] (1 source) Naloxone Drug Allergy 5 [facility] (1 source) Pentazocine Drug Allergy 5 [facility]ository Medications Current Medications Medication Drug [...] 5-325 MG per tablet Indications: CAD in [place] artery , S/P CABG x 3 Take [...] mg PO DAILY December 15, 2013 12:00am [facility] Complies with drug therapy Start: 02-16-2006 take [...] 10:00am docusate sodium 50 mg / sennosides, skilled nursing 8.6 mg oral tablet (2 sources) Start: [...] mg PO DAILY August 20, 2022 12:00am [facility] Complies with drug therapy Start: 09-25-2021 End: [...] extended release oral tablet (1 source) Uncompetitive V-vpdulk-V-asparta te Receptor Antagonist, Sigma-1 Agonist Start: 02-25-2019 [...] interventions based on BGT and call the Manager Of Change. o Maximum insulin infusion drip rate may not exceed 30 units/hr; Insulin drip may NOT be discontinued unless approved by Manager Of Change. Discontinue all subcutaneous Insulin orders (if patient [...] March 28, 2019 2:41pm polyethylene glycol 3350 18897 mg powder for oral solution (20 sources) [...] 1 TABLET BY MOUTH EVERY DAY sennosides, skilled nursing 8.6 mg oral tablet (20 sources) Start: [...] 20 ml/hr to SP(introducer) and WT on Pitcairn Jose Catheter; once [place] discontinued run at 20 ml/hr through SP(introducer) [...] heart disease (20 sources) Coronary arteriosclerosis in [place] artery; Translations: [Coronary atherosclerosis] Onset: 02-22-2019 03-03-2019 Chronic Comment on above: CABG x3 with GIRALDO to LAD, SVG to OM 2, and SVG to PDA of RCA on 02/27/[address] Taylor at [facility]; Coronary atherosclerosis and other heart disease [...] Torres on 12-25-2024 Noninvasive arteriosclerosis study report [facility] [address] [place] [address] Lower Ext Art Exam w/ Exercise 12/22/24 0956 MR#: [id number] Acct: [id number] Name: CHRISTY FRANCIS Rep #:[id number] : 1950 74 From: Grant Mendez Attending Dr: SKYLER Watson Stat us: REG CLI Ordering Dr: Ava Young Date: Location: [facility] Sex: F C Admitted: Reason For Study [...] Date Dictated: 12/22/24955 Date Transcribed: 12/25/24 1238 Plane Captain: Signed [facility] Work Phone: Lower Ext Art Exam w/ Exerci mai 12-22-2024 Lower Ext Art Exam w/ Exercise [facility] [address] [place] [address] Lower Ext Art Exam w/ Exercise 12/22/24955 MR#: [id number] Acct: [id number] Name: CHRISTY FRANCIS Rep #: [id number] : 1950 74 From: Grant Torres MD Attending Dr: SKYLER Watson Status: REG CLI Ordering Dr: Ava Young Date: 12/22/24 Location: [facility] Sex: F C Admitted: Reason For Study [...] Date Dictated: 12/22/2456 Date Transcribed: 12/25/24 1238 Plane Captain: Signed Normal [facility] Lumbar Spine 2 or 3 Viewson 12-22-2024 Lumbar Spine 2 or 3 Views [facility] Imaging Services [address] [place] [address] Lumbar Spine 2 or 3 Views MR#: [id number] Acct: [id number] Name: CHRISTY FRANCIS Rep #: [id number] : 1950 F 74 From: Ted Bullock MD PCP: Dr. Marielos Perla, Status: REG CLI Study: Lumbar Spine 2 or 3 Views Date of Exam: Exam# [id number] Ordering Dr: Ava Young EXAM: XR Lumbosacral [...] changes lumbar spine as described. Reading Location: [facility] CC: SKYLER Watson; Dr. Marielos Perla DO Plane Captain: Signed Normal [facility] MR/BMS.BVSon 12-12-2024 MR/BMS.BVS [facility] [address] [place] [address] OFFICE VISIT Date of Service: 12/12/24 MR#: [id number] Acct: [id number] Name: CHRISTY FRANCIS Rep #: [id number] : 1950 Provider: SKYLER Watson Age/Sex: 74/F Location: [facility] Status: Signed Intake Vital Signs 11/02/24 10:17 [...] Mechanical loosening of prosthetic knee Atherosclerosis of [place] coronary artery of [place] heart without angina pectoris PAD (peripheral artery [...] accompanied to her appointment today by her ucegnphy-rb-kxy Lynda who is an RN and helps [...] her k (more content not included)... Normal [facility] Anion gap in Serum or Plasma Ordered By: Jennifer Bailey on 12-06-2024 Anion gap [Moles/Vol] 14 mmol/L 08-31 [facility] BUN/creatinine ratioOrdered By: Jennifer Bailey on 12-06-2024 Urea nitrogen/Creatinine [Mass ratio] 22.5 mg/mg High 02-05 [facility] Basic Metabolic Profile (BMP )on 12-06-2024 BUN/CRE 22.5 RATIO High 02-05 [facility] Comment on above: Performed By: #### L 501.080 #### [facility] [address] [place], [address] Calcium [Mass/Vol] 9.5 mg/dL Normal 7.6-11.0 [facility] Comment on above: Performed By: #### L 501.080 #### [facility] [address] [place], [address] Chloride [Moles/Vol] 98 mmol/L Normal 98-108 [facility] Comment on above: Performed By: #### L 501.080 #### [facility] [address] [place], [address] CO2 [Moles/Vol] 26.5 mmol/L Normal 21.0-32.0 [facility] Comment on above: Performed By: #### L 501.080 #### [facility] [address] [place], [address] Creatinine [Mass/Vol] 1.42 mg/dL High 0.70-1.20 [facility] Comment on above: Performed By: #### L 501.080 #### [facility] [address] [place], [address] GAP 14 Normal 5-15 [facility] Comment on above: Performed By: #### L 501.080 #### [facility] [address] [place], [address] GFR/1.73 sq M.predicted among non-blacks MDRD (S/P/Bld) [Vol rate/Area] 39 mL/min/{1.73_m2} Low >60 [facility] Comment on above: Result Comment: mL/m in/1.73m2 CKD-EPI Creatinine Equation (2020) Performed By: #### L 501.080 #### [facility] [address] [place], [address] Glucose [Mass/Vol] 169 mg/dL High 70-99 [facility] Comment on above: Performed By: #### L 501.080 #### [facility] [address] [place], [address] Potassium [Moles/Vol] 4.2 mmol/L Normal 3.3-5.1 [facility] Comment on above: Performed By: #### L 501.080 #### [facility] [address] [place], [address] Sodium [Moles/Vol] 138 mmol/L Normal 133-145 [facility] Comment on above: Performed By: #### L 501.080 #### [facility] [address] [place], [address] Urea nitrogen [Mass/Vol] 32 mg/dL High 4-19 [facility] Comment on above: Performed By: #### L 501.080 #### [facility] [address] [place], [address] Carbon dioxide, total [Moles /volume] in Central venous bloodOrdered By: Jennifer Bailey on 12-06-2024 CO2 [Moles/Vol] 26.5 mmol/L 21.0-32.0 [facility] Chloride assayOrdered By: Shantell Bailey on 12-06-2024 Chloride [Moles/Vol] 98 mmol/L 98-108 [facility] Glomerular filtration rate ( GFR) estimation/1.73 sq m using serum, plasma, or whole bOrdered By: Jennifer Bailey on 12-06-2024 GFR/1.73 sq M.predicted among non-blacks MDRD (S/P/Bld) [Vol rate/Area] 39 mL/min/{1.73_m2} Low >60 [facility] Comment on above: mL/min/1.73m2 CKD-EP I Creatinine Equation (2020) Potassium measurement (mass/ volume)Ordered By: Jennifer Bailey on 12-06-2024 Potassium (Unsp spec) [Mass/Vol] 4.2 mmol/L 3.3-5.1 [facility] Serum creatinine measurement (mass/volume)Ordered By: Jennifer Bailey on 12-06-2024 Creatinine [Mass/Vol] 1.42 mg/dL High 0.70-1.20 [facility] Serum glucose measurement (m ass/volume)Ordered By: Jennifer Bailey on 12-06-2024 Glucose [Mass/Vol] 169 mg/dL High 70-99 [facility] Serum or plasma calcium shannon urement (mass/volume)Ordered By: Jennifer Bailey on 12-06-2024 Calcium [Mass/Vol] 9.5 mg/dL 7.6-11.0 [facility] Serum or plasma urea nitroge n measurement (mass/volume)Ordered By: Jennifer Bailey on 12-06-2024 Urea nitrogen [Mass/Vol] 32 mg/dL High 4-19 [facility] Sodium levelOrdered By: Estiven Bailey on 12-06-2024 Sodium [Moles/Vol] 138 mmol/L 133-145 [facility] Pelvic w/ Transvaginalon Pelvic w/ Transvaginal [facility] Imaging Services [address] [place], [place] [address] Pelvic w/ Transvaginal MR#: [id number] Acct: [id number] Name: CHRISTY FRANCIS Rep #: [id number] : 1950 F 74 From: Demarcus dominguez MD PCP: Dr. Marielos Perla DO Status: REG CLI Study: Pelvic w/ Transvaginal Date of Exam: 11/29/24 Exam# [id number] Ordering Dr: Marielos Perla DO PROCEDURE: PELVIC [...] Endometrial thickening. Clinical correlation recommended. Reading Location: [id number] CC: Dr. Marielos Perla DO Plane Captain: Signed Normal [facility] Anion gap in Serum or Plasma Ordered By: Jennifer Bailey on 11-02-2024 Anion gap [Moles/Vol] 15 mmol/L - [facility] BUN/creatinine ratioOrdered By: Jennifer Bailey on 11-02-2024 Urea nitrogen/Creatinine [Mass ratio] 20.1 mg/mg High - [facility] Basic Metabolic Profile (BMP )on 11-02-2024 BUN/CRE 20.1 RATIO High 02-05 [facility] Comment on above: Performed By: #### L 502.0250, L500.4100, L500.4050, L100.0100 #### [facility] [address] [place], [address] Calcium [Mass/Vol] 9.9 mg/dL Normal 7.6-11.0 [facility] Comment on above: Performed By: #### L 502.0250, L500.4100, L500.4050, L100.0100 #### [facility] [address] [place], [address] Chloride [Moles/Vol] 98 mmol/L Normal 98-108 [facility] Comment on above: Performed By: #### L 502.0250, L500.4100, L500.4050, L100.0100 #### [facility] [address] [place], [address] CO2 [Moles/Vol] 23.7 mmol/L Normal 21.0-32.0 [facility] Comment on above: Performed By: #### L 502.0250, L500.4100, L500.4050, L100.0100 #### [facility] [address] [place], [address] Creatinine [Mass/Vol] 1.77 mg/dL High 0.70-1.20 [facility] Comment on above: Performed By: #### L 502.0250, L500.4100, L500.4050, L100.0100 #### [facility] [address] [place], [address] GAP 15 Normal 5-15 [facility] Comment on above: Performed By: #### L 502.0250, L500.4100, L500.4050, L100.0100 #### [facility] [address] [place], [address] GFR/1.73 sq M.predicted among non-blacks MDRD (S/P/Bld) [Vol rate/Area] 30 mL/min/{1.73_m2} Low >60 [facility] Comment on above: Result Comment: mL/m in/1.73m2 CKD-EPI Creatinine Equation (2020) Performed By: #### L 502.0250, L500.4100, L500.4050, L100.0100 #### [facility] [address] [place], [address] Glucose [Mass/Vol] 127 mg/dL High 70-99 [facility] Comment on above: Performed By: #### L 502.0250, L500.4100, L500.4050, L100.0100 #### [facility] [address] [place], [address] Potassium [Moles/Vol] 4.8 mmol/L Normal 3.3-5.1 [facility] Comment on above: Performed By: #### L 502.0250, L500.4100, L500.4050, L100.0100 #### [facility] [address] [place], [address] Sodium [Moles/Vol] 137 mmol/L Normal 133-145 [facility] Comment on above: Performed By: #### L 502.0250, L500.4100, L500.4050, L100.0100 #### [facility] [address] [place], [address] Urea nitrogen [Mass/Vol] 36 mg/dL High 4-19 [facility] Comment on above: Performed By: #### L 502.0250, L500.4100, L500.4050, L100.0100 #### [facility] [address] [place], [address] Carbon dioxide, total [Moles /volume] in Central venous bloodOrdered By: Jennifer Bailey on 11-02-2024 CO2 [Moles/Vol] 23.7 mmol/L 21.0-32.0 [facility] Cardiology Visit Reporton Cardiology Visit Report [facility] [address] [place] [address] OFFICE VISIT Date of Service: 11/02/24 MR#: [id number] Acct: [id number] Name: CHRISTY FRANCIS Rep #: [id number] : 1950 Provider: SKYLER Low Age/Sex: 74/F Location: [facility] Status: Signed HPI HPI History of Present Illness Details: This is a 74-year-old white female who presents today for outpatient cardiovascular follow-up visit. She has a history of underlying CAD status post CABG ([facility]: 02-27-2019: GIRALDO to the LAD, SVG [...] Monitor Intake Visit Reasons: 1 Y FU Program Support Clerk Required: No Accompanied by: Self Is patient [...] the past year?: Yes (stumbled on treadmill) [facility] Medical History (Updated 11/02/24 @ 10:44 by Jennifer Bailey PA, PA) Severe left ventricular systolic dysfunction (LVSD) Palpitations Right rotator cuff tear Trigger finger of both hands Carpal tunnel syndrome on both sides FHx: cholecystectomy History of left heart catheterization (LHC) ( 06/03/21) Essential hypertension Mechanical loosening of prosthetic knee Atherosclerosis of [place] coronary artery of [place] heart without angina pectoris PAD (peripheral artery disease) HLD (hyperlipidemia) Type II diabetes mellitus Surgical History History of coronary artery bypass graft x 3 ( 02/27/19) History of prosthetic unicompartmental arthroplasty of left knee Family History Mother Heart disease Social History Smoking Status: Light Smoker (<10/day) alcohol intake: current alcohol intake frequency: ho (more content not included)... Normal [facility] Chloride assayOrdered By: Shantell Bailey on 11-02-2024 Chloride [Moles/Vol] 98 mmol/L 98-108 [facility] Glomerular filtration rate ( GFR) estimation/1.73 sq m using serum, plasma, or whole bOrdered By: Jennifer Bailey on 11-02-2024 GFR/1.73 sq M.predicted among non-blacks MDRD (S/P/Bld) [Vol rate/Area] 30 mL/min/{1.73_m2} Low >60 [facility] Comment on above: mL/min/1.73m2 CKD-EP I Creatinine Equation (2020) Potassium measurement (mass/ volume)Ordered By: Jennifer Bailey on 11-02-2024 Potassium (Unsp spec) [Mass/Vol] 4.8 mmol/L 3.3-5.1 [facility] Serum creatinine measurement (mass/volume)Ordered By: Jennifer Bailey on 11-02-2024 Creatinine [Mass/Vol] 1.77 mg/dL High 0.70-1.20 [facility] Serum glucose measurement (m ass/volume)Ordered By: Jennifer Bailey on 11-02-2024 Glucose [Mass/Vol] 127 mg/dL High 70-99 [facility] Serum or plasma calcium shannon urement (mass/volume)Ordered By: Jennifer Bailey on 11-02-2024 Calcium [Mass/Vol] 9.9 mg/dL 7.6-11.0 [facility] Serum or plasma urea nitroge n measurement (mass/volume)Ordered By: Jennifer Bailey on 11-02-2024 Urea nitrogen [Mass/Vol] 36 mg/dL High 4-19 [facility] Sodium levelOrdered By: Estiven Bailey on 11-02-2024 Sodium [Moles/Vol] 137 mmol/L 133-145 [facility] L/S Spine Min 4 Viewson L/S Spine Min 4 Views [facility] Imaging Services [address] [place] [address] L/S Spine Min 4 Views MR#: [id number] Acct: [id number] Name: CHRISTY FRANCIS Rep #: [id number] : 1950 F 74 From: Bryce Serrano MD PCP: Dr. Marielos Perla DO Status: REG CLI Study: L/S Spine Min 4 Views Date of Exam: 09/18/24 Exam# [id number] Ordering Dr: Rand Mckeon PROCEDURE: L/S SPINE MIN 4 VIEWS 09/18/2024 REASON FOR EXAM: PAIN, SCIATICA TECHNIQUE: Four views of the lumbar spine COMPARISON: None FINDINGS: There are 5 ula-nwj-kkrnzla lumbar-type vertebral bodies. The pars are not [...] is likely degenerative. Reading Location: [facility] CC: MEDICAL GENETICIST-Sweetie Mckeon; Dr. Marielos Perla DO Plane Captain: Signed Normal [facility] Cardiology Visit Reporton Cardiology Visit Report [facility] [address] [place] [address] OFFICE VISIT Date of Service: 06/05/24 MR#: [id number] Acct: [id number] Name: CHRISTY FRANCIS Rep #: [id number] : 1950 Provider: JOHNATHON olivas Age/Sex: 74/F Location: [facility] Status: Signed HPI HPI History of Present Illness Details: This is a 74-year-old white female who presents today for outpatient cardiovascular follow-up visit. She has a history of underlying CAD status post CABG ([facility]: 02-27-2019: GIRALDO to the LAD, SVG [...] NIBP Intake Visit Reasons: 3 M FU Program Support Clerk Required: No Is patient in pain?: No [...] Mechanical loosening of prosthetic knee Atherosclerosis of [place] coronary artery of [place] heart without angina pectoris PAD (peripheral artery disease) HLD (hyperlipidemia) Type II diabetes mellitus Surgical History (Updated 06/05/24 @ 11:25 by Charlie Johnson NP, JOHNATHON) History of coronary artery bypass graft x 3 ( 02/27/19) History of prosthetic unicompartmental arthroplasty of left knee Family History Mother Heart disease So (more content not included)... Normal [facility] Cardiology Visit Reporton Cardiology Visit Report [facility] [place] [address] OFFICE VISIT Date of Service: 03/09/24 MR#: [id number] Acct: [id number] Name: CHRISTY FRANCIS Rep #: [id number] : 1950 Provider: JOHNATHON olivas Age/Sex: 74/F Location: [facility] Status: Signed HPI HPI History of Present Illness Details: This is a 74-year-old white female who presents today for outpatient cardiovascular follow-up visit. She has a history of underlying CAD status post CABG ([facility]: 02-27-2019: GIRALDO to the LAD, SVG [...] Pulse Source NIBP Intake Visit Reasons: S/P [facility] 02/20 Program Support Clerk Required: No Is patient in pain?: No [...] Mechanical loosening of prosthetic knee Atherosclerosis of [place] coronary artery of [place] heart without angina pectoris PAD (peripheral artery [...] frequency: holidays/ (more content not included)... Normal [facility] Basic Metabolic Profile (BMP )on 02-23-2024 BUN Normal 7-18 [facility] Comment on above: Result Comment: Canc elled via OM: Order cancelled - Patient discharged Performed By: #### L 501.080 #### [facility] [address] [place], [address] BUN/CRE Normal 10-20 [facility] Comment on above: Result Comment: Canc elled via OM: Order cancelled - Patient discharged Performed By: #### L 501.080 #### [facility] [address] [place], [address] CA,Total Normal 8.5-10.1 [facility] Comment on above: Result Comment: Canc elled via OM: Order cancelled - Patient discharged Performed By: #### L 501.080 #### [facility] [address] [place], [address] CL Normal 98-107 [facility] Comment on above: Result Comment: Canc elled via OM: Order cancelled - Patient discharged Performed By: #### L 501.080 #### [facility] [address] [place], [address] CO2 Normal 21.0-32.0 [facility] Comment on above: Result Comment: Canc elled via OM: Order cancelled - Patient discharged Performed By: #### L 501.080 #### [facility] [address] [place], [address] CREAT,SERUM Normal 0.55-1.02 [facility] Comment on above: Result Comment: Canc elled via OM: Order cancelled - Patient discharged Performed By: #### L 501.080 #### [facility] [address] [place], [address] EST GFR Normal >60 [facility] Comment on above: Result Comment: Canc elled via OM: Order cancelled - Patient discharged Performed By: #### L 501.080 #### [facility] [address] [place], [address] EST GFR - AA Normal >60 [facility] Comment on above: Result Comment: Canc elled via OM: Order cancelled - Patient discharged Performed By: #### L 501.080 #### [facility] [address] [place], [address] GAP Normal 5-15 [facility] Comment on above: Result Comment: Canc elled via OM: Order cancelled - Patient discharged Performed By: #### L 501.080 #### [facility] [address] [place], [address] GLU Normal 74-106 [facility] Comment on above: Result Comment: Canc elled via OM: Order cancelled - Patient discharged Performed By: #### L 501.080 #### [facility] [address] [place], [address] Potassium Normal 3.5-5.1 [facility] Comment on above: Result Comment: Canc elled via OM: Order cancelled - Patient discharged Performed By: #### L 501.080 #### [facility] [address] [place], [address] Basic Metabolic Profile (BMP) Normal 136-145 [facility] Comment on above: Result Comment: Canc elled via OM: Order cancelled - Patient discharged Performed By: #### L 501.080 #### [facility] [address] [place], [address] CBC W/Diff, Automatedon 11-0 Absolute Neut Normal 2.0-7.7 [facility] [facility] Comment on above: Result Comment: Canc elled via OM: Order cancelled - Patient discharged Performed By: #### L 501.080 #### [facility] [address] [place], [address] HCT Normal 37-47 [facility] Comment on above: Result Comment: Canc elled via OM: Order cancelled - Patient discharged Performed By: #### L 501.080 #### [facility] [address] [place], [address] HGB Normal 12.0-15.0 [facility] Comment on above: Result Comment: Canc elled via OM: Order cancelled - Patient discharged Performed By: #### L 501.080 #### [facility] [address] [place], [address] MCH Normal 27.0-32.0 [facility] Comment on above: Result Comment: Canc elled via OM: Order cancelled - Patient discharged Performed By: #### L 501.080 #### [facility] [address] [place], [address] MCHC Normal 32-36 [facility] Comment on above: Result Comment: Canc elled via OM: Order cancelled - Patient discharged Performed By: #### L 501.080 #### [facility] [address] [place], [address] MCV Normal 81-99 [facility] Comment on above: Result Comment: Canc elled via OM: Order cancelled - Patient discharged Performed By: #### L 501.080 #### [facility] [address] [place], [address] NEUT% Normal 47-70 [facility] Comment on above: Result Comment: Canc elled via OM: Order cancelled - Patient discharged Performed By: #### L 501.080 #### [facility] [address] [place], [address] PLT Normal 150-450 [facility] Comment on above: Result Comment: Canc elled via OM: Order cancelled - Patient discharged Performed By: #### L 501.080 #### [facility] [address] [place], [address] RBC Normal 4.2-5.4 [facility] Comment on above: Result Comment: Canc elled via OM: Order cancelled - Patient discharged Performed By: #### L 501.080 #### [facility] [address] [place], [address] RDW CV Normal 11.6-14.6 [facility] Comment on above: Result Comment: Canc elled via OM: Order cancelled - Patient discharged Performed By: #### L 501.080 #### [facility] [address] [place], [address] RDW SD Normal 35.1-43.9 [facility] Comment on above: Result Comment: Canc elled via OM: Order cancelled - Patient discharged Performed By: #### L 501.080 #### [facility] [address] [place], [address] WBC Normal 4.4-11.0 [facility] Comment on above: Result Comment: Canc elled via OM: Order cancelled - Patient discharged Performed By: #### L 501.080 #### [facility] [address] [place], [address] Basic Metabolic Profile (BMP )on 02-22-2024 BUN Normal 7-18 [facility] Comment on above: Result Comment: Canc elled via OM: Order cancelled - Patient discharged Performed By: #### L 502.0250, L500.4100, L500.4050, L100.0100 #### [facility] [address] [place], [address] BUN/CRE Normal 10-20 [facility] Comment on above: Result Comment: Canc elled via OM: Order cancelled - Patient discharged Performed By: #### L 502.0250, L500.4100, L500.4050, L100.0100 #### [facility] [address] [place], [address] CA,Total Normal 8.5-10.1 [facility] Comment on above: Result Comment: Canc elled via OM: Order cancelled - Patient discharged Performed By: #### L 502.0250, L500.4100, L500.4050, L100.0100 #### [facility] [address] [place], [address] CL Normal 98-107 [facility] Comment on above: Result Comment: Canc elled via OM: Order cancelled - Patient discharged Performed By: #### L 502.0250, L500.4100, L500.4050, L100.0100 #### [facility] [address] [place], [address] CO2 Normal 21.0-32.0 [facility] Comment on above: Result Comment: Canc elled via OM: Order cancelled - Patient discharged Performed By: #### L 502.0250, L500.4100, L500.4050, L100.0100 #### [facility] [address] [place], [address] CREAT,SERUM Normal 0.55-1.02 [facility] Comment on above: Result Comment: Canc elled via OM: Order cancelled - Patient discharged Performed By: #### L 502.0250, L500.4100, L500.4050, L100.0100 #### [facility] [address] [place], [address] EST GFR Normal >60 [facility] Comment on above: Result Comment: Canc elled via OM: Order cancelled - Patient discharged Performed By: #### L 502.0250, L500.4100, L500.4050, L100.0100 #### [facility] [address] [place], [address] EST GFR - AA Normal >60 [facility] Comment on above: Result Comment: Canc elled via OM: Order cancelled - Patient discharged Performed By: #### L 502.0250, L500.4100, L500.4050, L100.0100 #### [facility] [address] [place], [address] GAP Normal 5-15 [facility] Comment on above: Result Comment: Canc elled via OM: Order cancelled - Patient discharged Performed By: #### L 502.0250, L500.4100, L500.4050, L100.0100 #### [facility] [address] [place], [address] GLU Normal 74-106 [facility] Comment on above: Result Comment: Canc elled via OM: Order cancelled - Patient discharged Performed By: #### L 502.0250, L500.4100, L500.4050, L100.0100 #### [facility] [address] [place], [address] Potassium Normal 3.5-5.1 [facility] Comment on above: Result Comment: Canc elled via OM: Order cancelled - Patient discharged Performed By: #### L 502.0250, L500.4100, L500.4050, L100.0100 #### [facility] [address] [place], [address] Basic Metabolic Profile (BMP) Normal 136-145 [facility] Comment on above: Result Comment: Canc elled via OM: Order cancelled - Patient discharged Performed By: #### L 502.0250, L500.4100, L500.4050, L100.0100 #### [facility] [address] [place], [address] CBC W/Diff, Automatedon 11-0 Absolute Neut Normal 2.0-7.7 [facility] Comment on above: Result Comment: Canc elled via OM: Order cancelled - Patient discharged Performed By: #### L 502.0250, L500.4100, L500.4050, L100.0100 #### [facility] [address] [place], [address] HCT Normal 37-47 [facility] Comment on above: Result Comment: Canc elled via OM: Order cancelled - Patient discharged Performed By: #### L 502.0250, L500.4100, L500.4050, L100.0100 #### [facility] [address] [place], [address] HGB Normal 12.0-15.0 [facility] Comment on above: Result Comment: Canc elled via OM: Order cancelled - Patient discharged Performed By: #### L 502.0250, L500.4100, L500.4050, L100.0100 #### [facility] [address] [place], [address] MCH Normal 27.0-32.0 [facility] Comment on above: Result Comment: Canc elled via OM: Order cancelled - Patient discharged Performed By: #### L 502.0250, L500.4100, L500.4050, L100.0100 #### [facility] [address] [place], [address] MCHC Normal 32-36 [facility] Comment on above: Result Comment: Canc elled via OM: Order cancelled - Patient discharged Performed By: #### L 502.0250, L500.4100, L500.4050, L100.0100 #### [facility] [address] [place], [address] MCV Normal 81-99 [facility] Comment on above: Result Comment: Canc elled via OM: Order cancelled - Patient discharged Performed By: #### L 502.0250, L500.4100, L500.4050, L100.0100 #### [facility] [address] [place], [address] NEUT% Normal 47-70 [facility] Comment on above: Result Comment: Canc elled via OM: Order cancelled - Patient discharged Performed By: #### L 502.0250, L500.4100, L500.4050, L100.0100 #### [facility] [address] [place], [address] PLT Normal 150-450 [facility] Comment on above: Result Comment: Canc elled via OM: Order cancelled - Patient discharged Performed By: #### L 502.0250, L500.4100, L500.4050, L100.0100 #### [facility] [address] [place], [address] RBC Normal 4.2-5.4 [facility] Comment on above: Result Comment: Canc elled via OM: Order cancelled - Patient discharged Performed By: #### L 502.0250, L500.4100, L500.4050, L100.0100 #### [facility] [address] [place], [address] RDW CV Normal 11.6-14.6 [facility] Comment on above: Result Comment: Canc elled via OM: Order cancelled - Patient discharged Performed By: #### L 502.0250, L500.4100, L500.4050, L100.0100 #### [facility] [address] [place], [address] RDW SD Normal 35.1-43.9 [facility] Comment on above: Result Comment: Canc elled via OM: Order cancelled - Patient discharged Performed By: #### L 502.0250, L500.4100, L500.4050, L100.0100 #### [facility] [address] [place], [address] WBC Normal 4.4-11.0 [facility] Comment on above: Result Comment: Canc elled via OM: Order cancelled - Patient discharged Performed By: #### L 502.0250, L500.4100, L500.4050, L100.0100 #### [facility] [address] [place], [address] 12 Lead EKGon 02-21-2024 12 Lead EKG [facility] [address] [place] [address] 12 Lead EKG 02/19/242009 MR#: [id number] Acct: [id number] Name: CHRISTY FRANCIS Rep #: [id number] : 1950 74 From: Jos Chandra MD Attending Dr: Dr. Kaushik Castro MD Status: DIS BRIAN Ordering Dr: Grant Castelan DO Date: 02/21/24 Location: [facility] Sex: F C Admitted: 02/19/24 Test Reason [...] DATA IS UNCONFIRMED Confirmed by Jos Chandra ([id number]), society editor SHILPA VALENZUELA ([id number]) on 02/22/2024 9:27:09 AM Referred By: Confirmed By: Jos Chandra 02/22/24 0927 Date Jos Chandra MD CC: Dr. Kaushik Castro MD; Dr. Grant Castelan DO; Dr. Marielos Perla DO Signed Normal [facility] Basic Metabolic Profile (BMP )on 02-21-2024 BUN/CRE 17.9 RATIO Normal 02-05 [facility] Comment on above: Performed By: #### L 502.0250, L500.4100, L500.4050, L100.0100 #### [facility] [address] [place], [address] CA,Total 8.9 mg/dL Normal 8.5-10.1 [facility] Comment on above: Performed By: #### L 502.0250, L500.4100, L500.4050, L100.0100 #### [facility] [address] [place], [address] Chloride [Moles/Vol] 107 mmol/L Normal 98-107 [facility] Comment on above: Performed By: #### L 502.0250, L500.4100, L500.4050, L100.0100 #### [facility] [address] [place], [address] CO2 [Moles/Vol] 25.0 mmol/L Normal 21.0-32.0 [facility] Comment on above: Performed By: #### L 502.0250, L500.4100, L500.4050, L100.0100 #### [facility] [address] [place], [address] Creatinine [Mass/Vol] 1.17 mg/dL High 0.55-1.02 [facility] Comment on above: Result Comment: The validity of the calculated GFR GFRAA in patients over 70 years has not been determined. Clinical correlation is essential. Performed By: #### L 502.0250, L500.4100, L500.4050, L100.0100 #### [facility] [address] [place], [address] ECRCL 42.98 ml/min Normal [facility] Comment on above: Performed By: #### L 502.0250, L500.4100, L500.4050, L100.0100 #### [facility] [address] [place], [address] EST GFR - AA 58 mL/min Low >60 [facility] Comment on above: Result Comment: Afri can Bruneian GFR Calc Performed By: #### L 502.0250, L500.4100, L500.4050, L100.0100 #### [facility] [address] [place], [address] GAP 7 Normal 5-15 [facility] Comment on above: Performed By: #### L 502.0250, L500.4100, L500.4050, L100.0100 #### [facility] [address] [place], [address] GFR/1.73 sq M.predicted among non-blacks MDRD (S/P/Bld) [Vol rate/Area] 48 mL/min/{1.73_m2} Low >60 [facility] Comment on above: Result Comment: Non- GFR Calc Performed By: #### L 502.0250, L500.4100, L500.4050, L100.0100 #### [facility] [address] [place], [address] Glucose [Mass/Vol] 131 mg/dL High 74-106 [facility] Comment on above: Result Comment: Fast ing Glucose result greater than or equal to 126 mg/dL suggests DIABETES MELLITUS per A.D.A. criteria. Performed By: #### L 502.0250, L500.4100, L500.4050, L100.0100 #### [facility] [address] [place], [address] Potassium [Moles/Vol] 3.6 mmol/L Normal 3.5-5.1 [facility] Comment on above: Performed By: #### L 502.0250, L500.4100, L500.4050, L100.0100 #### [facility] [address] [place], [address] Sodium [Moles/Vol] 138 mmol/L Normal 136-145 [facility] Comment on above: Performed By: #### L 502.0250, L500.4100, L500.4050, L100.0100 #### [facility] [address] [place], [address] Urea nitrogen [Mass/Vol] 21 mg/dL High 7-18 [facility] Comment on above: Performed By: #### L 502.0250, L500.4100, L500.4050, L100.0100 #### [facility] [address] [place], [address] Bedside Glucoseon 02-21-2024 FINGERSTICK GLU 204 mg/dL High 74-106 [facility] Comment on above: Result Comment: GENARO GEMENT OF PATIENT CARE PER NURSING PROTOCOL Performed By: #### L 501.080 #### [facility] [address] [place], [address] FINGERSTICK GLU 180 mg/dL High 74-106 [facility] Comment on above: Result Comment: GENARO GEMENT OF PATIENT CARE PER NURSING PROTOCOL Performed By: #### L 501.080 #### [facility] [address] [place], [address] CBC W/Diff, Automatedon 11- Absolute Lymph 1.89 X10 3/uL Normal 0.83-4.51 [facility] Comment on above: Performed By: #### L 100.0100, L501.5200, L500.2500, L501.2300 #### [facility] [address] [place], [address] Absolute Neut 5.7 X10 3/uL Normal 2.0-7.7 [facility] Comment on above: Performed By: #### L 100.0100, L501.5200, L500.2500, L501.2300 #### [facility] [address] [place], [address] Basophils/100 WBC (Bld) 0.7 % Normal 0-1 [facility] Comment on above: Performed By: #### L 100.0100, L501.5200, L500.2500, L501.2300 #### [facility] [address] [place], [address] Eosinophils/100 WBC (Bld) 14.5 % High 0-5 [facility] Comment on above: Performed By: #### L 100.0100, L501.5200, L500.2500, L501.2300 #### [facility] [address] [place], [address] Erythrocyte distribution width (RBC) [Ratio] 15.1 % High 11.6-14.6 [facility] Comment on above: Performed By: #### L 100.0100, L501.5200, L500.2500, L501.2300 #### [facility] [address] [place], [address] Hematocrit (Bld) [Volume fraction] 42.2 % Normal 37-47 [facility] Comment on above: Performed By: #### L 100.0100, L501.5200, L500.2500, L501.2300 #### [facility] [address] [place], [address] Hemoglobin (Bld) [Mass/Vol] 13.8 g/dL Normal 12.0-15.0 [facility] Comment on above: Performed By: #### L 100.0100, L501.5200, L500.2500, L501.2300 #### [facility] [address] [place], [address] IG% 0.300 Normal 0.0-0.9 [facility] Comment on above: Result Comment: IG% - Immature Granulocytes (promyelocytes, myelocytes and metamyelocytes) > 1% indicates that a LEFT SHIFT is Present. Performed By: #### L 100.0100, L501.5200, L500.2500, L501.2300 #### [facility] [address] [place], [address] Lymphocytes/100 WBC (Bld) 18.9 % Low 19-41 [facility] Comment on above: Performed By: #### L 100.0100, L501.5200, L500.2500, L501.2300 #### [facility] [address] [place], [address] MCH (RBC) [Entitic mass] 30.1 pg Normal 27.0-32.0 [facility] Comment on above: Performed By: #### L 100.0100, L501.5200, L500.2500, L501.2300 #### [facility] [address] [place], [address] MCHC (RBC) [Mass/Vol] 32.7 g/dL Normal 32-36 [facility] Comment on above: Performed By: #### L 100.0100, L501.5200, L500.2500, L501.2300 #### [facility] [address] [place], [address] MCV (RBC) [Entitic vol] 91.9 fL Normal 81-99 [facility] Comment on above: Performed By: #### L 100.0100, L501.5200, L500.2500, L501.2300 #### [facility] [address] [place], [address] Monocytes/100 WBC (Bld) 8.4 % Normal 0-10 [facility] Comment on above: Performed By: #### L 100.0100, L501.5200, L500.2500, L501.2300 #### [facility] [address] [place], [address] Neutrophils/100 WBC (Bld) 57.2 % Normal 47-70 [facility] Comment on above: Performed By: #### L 100.0100, L501.5200, L500.2500, L501.2300 #### [facility] [address] [place], [address] Nucleated RBC (Bld) [#/Vol] 0 10*3/uL Normal 0-5 [facility] Comment on above: Performed By: #### L 100.0100, L501.5200, L500.2500, L501.2300 #### [facility] [address] [place], [address] Platelet mean volume (Bld) [Entitic vol] 11.1 fL Normal 6.2-12.0 [facility] Comment on above: Performed By: #### L 100.0100, L501.5200, L500.2500, L501.2300 #### [facility] [address] [place], [address] Platelets (Bld) [#/Vol] 260 10*3/uL Normal 150-450 [facility] Comment on above: Performed By: #### L 100.0100, L501.5200, L500.2500, L501.2300 #### [facility] [address] [place], [address] RBC (Bld) [#/Vol] 4.59 10*6/uL Normal 4.2-5.4 [facility] Comment on above: Performed By: #### L 100.0100, L501.5200, L500.2500, L501.2300 #### [facility] [address] [place], [address] RDW SD 50.9 fl High 35.1-43.9 [facility] Comment on above: Performed By: #### L 100.0100, L501.5200, L500.2500, L501.2300 #### [facility] [address] [place], [address] WBC (Bld) [#/Vol] 10.0 10*3/uL Normal 4.4-11.0 [facility] Comment on above: Performed By: #### L 100.0100, L501.5200, L500.2500, L501.2300 #### [facility] [address] [place], [address] Magnesiumon 02-21-2024 Magnesium [Mass/Vol] 2.0 mg/dL Normal 1.6-2.6 [facility] Comment on above: Performed By: #### L 502.0250, L500.4100, L500.4050, L100.0100 #### [facility] [address] [place], [address] Phosphoruson 02-21-2024 Phosphate [Mass/Vol] 4.4 mg/dL Normal 2.5-4.9 [facility] Comment on above: Performed By: #### L 502.0250, L500.4100, L500.4050, L100.0100 #### [facility] [address] [place], [address] Stress Reporton 02-21-2024 Stress Report [facility] [address] [place] [address] MR#: [id number] Acct: [id number] Name: CHRISTY FRANCIS Rep #: [id number] : 1950 74 From: Jorge Anderson MD [...] DO Date Dictated: 02/21/241041 Date Transcribed: 02/21/241041 Plane Captain: [place] Signed Normal [facility] BNP,B-Type NATRIURETIC PEPTI Regino 02-20-2024 Natriuretic peptide B (Bld) [Mass/Vol] 20.3 pg/mL Normal 0-100 [facility] Comment on above: Performed By: #### L 503.6620 #### [facility] [address] [place], [address] Basic Metabolic Profile (BMP )on 02-20-2024 BUN/CRE 16.1 RATIO Normal 10-20 [facility] Comment on above: Performed By: #### L 501.080 #### [facility] [address] [place], [address] CA,Total 8.4 mg/dL Low 8.5-10.1 [facility] Comment on above: Performed By: #### L 501.080 #### [facility] [address] [place], [address] Chloride [Moles/Vol] 107 mmol/L Normal 98-107 [facility] Comment on above: Performed By: #### L 501.080 #### [facility] [address] [place], [address] CO2 [Moles/Vol] 24.0 mmol/L Normal 21.0-32.0 [facility] Comment on above: Performed By: #### L 501.080 #### [facility] [address] [place], [address] Creatinine [Mass/Vol] 1.37 mg/dL High 0.55-1.02 [facility] Comment on above: Result Comment: The validity of the calculated GFR GFRAA in patients over 70 years has not been determined. Clinical correlation is essential. Performed By: #### L 501.080 #### [facility] [address] [place], [address] ECRCL 36.71 ml/min Normal [facility] Comment on above: Performed By: #### L 501.080 #### [facility] [address] [place], [address] EST GFR - AA 49 mL/min Low >60 [facility] Comment on above: Result Comment: Afri can Br[place]ian GFR Calc Performed By: #### L 501.080 #### [facility] [address] [place], [address] GAP 6 Normal 5-15 [facility] Comment on above: Performed By: #### L 501.080 #### [facility] [address] [place], [address] GFR/1.73 sq M.predicted among non-blacks MDRD (S/P/Bld) [Vol rate/Area] 40 mL/min/{1.73_m2} Low >60 [facility] Comment on above: Result Comment: Non- GFR Calc Performed By: #### L 501.080 #### [facility] [address] [place], [address] Glucose [Mass/Vol] 358 mg/dL High 74-106 [facility] Comment on above: Result Comment: Gluc ose result greater than or equal to 200 mg/dL suggests DIABETES MELLITUS per A.D.A. criteria. Performed By: #### L 501.080 #### [facility] [address] [place], [address] Potassium [Moles/Vol] 3.9 mmol/L Normal 3.5-5.1 [facility] Comment on above: Performed By: #### L 501.080 #### [facility] [address] [place], [address] Sodium [Moles/Vol] 136 mmol/L Normal 136-145 [facility] Comment on above: Performed By: #### L 501.080 #### [facility] [address] [place], [address] Urea nitrogen [Mass/Vol] 22 mg/dL High 7-18 [facility] Comment on above: Performed By: #### L 501.080 #### [facility] [address] [place], [address] Bedside Glucoseon 02-20-2024 FINGERSTICK GLU 129 mg/dL High 74-106 [facility] Comment on above: Result Comment: GENARO ALTON OF PATIENT CARE PER NURSING PROTOCOL Performed By: #### L 501.080 #### [facility] [address] [place], [address] FINGERSTICK GLU 178 mg/dL High 74-106 [facility] Comment on above: Result Comment: GENARO GEMENT OF PATIENT CARE PER NURSING PROTOCOL Performed By: #### L 502.0250, L500.4100, L500.4050, L100.0100 #### [facility] [address] [place], [address] FINGERSTICK GLU 366 mg/dL High 74-106 [facility] Comment on above: Result Comment: GENARO GEMENT OF PATIENT CARE PER NURSING PROTOCOL Performed By: #### L 501.080 #### [facility] [address] [place] [place], [address] FINGERSTICK GLU 391 mg/dL High 74-106 [facility] Comment on above: Result Comment: GENARO GEMENT OF PATIENT CARE PER NURSING PROTOCOL Performed By: #### L 501.080 #### [facility] [address] [place], [address] Consultation - Cardiologyon 02-20-2024 Consultation - Cardiology [facility] Medical Records Department [address] [place] [address] Consultation - Cardiology 02/20/24 1012 MR#: [id number] Acct: [id number] Name: CHRISTY FRANCIS Rep #: [id number] : 1950 74 From: Jorge Anderson MD PCP: Dr. Marielos Perla, DO Status:ADM BRIAN Location: [place] [address] Assessment Plan Assessment/Plan (1) Exertional dyspnea: PLAN: [...] history of underlying CAD status post CABG ([facility]: 02-27-2019: GIRALDO to the LAD, SVG [...] that cardiology should see during this admission. [facility] Medical History Palpitations Right rotator cuff tear Trigger finger of both hands Carpal tunnel syndrome on both sides FHx: cholecystectomy History of left heart catheterization (LHC) ( 06/03/21) Essential hypertension Mechanical loosening of prosthetic knee Atherosclerosis of [place] coronary artery of [place] heart without angina pectoris PAD (peripheral artery disease) HLD (hyperlipidemia) Type II diabetes mellitus Home Medications ???Medication ???Instructions ???Recorded ???Last Taken ???Type aspirin 81 mg tablet,delayed 81 mg PO DAILY [facility] 12/15/13 06/03/21 History release nitroglycerin 0.4 mg [...] 11/05/23 11:3 (more content not included)... Normal [facility] Echo Completeon 02-20-2024 Echo Complete [facility] [address] [place] [address] Echo Complete 02/21/24 1022 MR#: [id number] Acct: [id number] Name: CHRISTY FRANCIS Rep #: [id number] : 1950 74 From: Jorge Anderson MD Attending Dr: Dr. Kaushik Castro MD Status: ADM BRIAN Ordering Dr: Jorge Anderson MD Date: 02/20/24 Location: [facility] Sex: F C Admitted: 02/19/24 Reason For [...] Dictated: 02/21/24 1022 Date Transcribed: 02/21/24 1131 Plane Captain: Signed Normal [facility] Hemoglobin A1con 02-20-2024 HbA1c (Bld) [Mass fraction] 9.8 % High 3.8-5.6 [facility] Comment on above: Result Comment: Norm al < 5.7 % Prediabetic 5.7 - 6.4 % Diabetic >or= 6.5 % Please note range changes. Performed By: #### L 501.080 #### [facility] [address] [place], [place], [address] Thyroid Stim Hormone (TSH)on 02-20-2024 TSH 0.994 uIU/mL Normal 0.358-3.740 [facility] Comment on above: Performed By: #### L 501.080 #### [facility] [address] [place], [address] 12 Lead EKGon 02-19-2024 12 Lead EKG [facility] Cardiovascular Services [address] [place] [address] 12 Lead EKG 02/21/24 0552 MR#: [id number] Acct: [id number] Name: CHRISTY FRANCIS Rep #: [id number] : 1950 74 From: Jos Chandra MD Attending Dr: Dr. Kaushik Castro MD Status: DIS BRIAN Ordering Dr: Grant Castelan DO Date: 02/19/24 Location: [facility] Sex: F C Admitted: 02/19/24 Test Reason [...] abnormality Abnormal ECG Confirmed by Jos Chandra ([id number]), society editor SHILPA VALENZUELA ([id number]) on 02/22/2024 9:25:47 AM Referred By: Confirmed By: Jos Chandra 02/22/24924 Date Jos Chandra MD CC: Dr. Kaushik Castro MD; Dr. Grant Castelan DO; Dr. Marielos Perla DO Signed Normal [facility] 12 Lead EKG [facility] Cardiovascular Services [address] [place] [address] 12 Lead EKG 02/19/24 1412 MR#: [id number] Acct: [id number] Name: GALILEOCHRISTY S Rep #: [id number] : 1950 74 From: Jorge Anderson MD Attending Dr: Dr. Kaushik Castro MD Status: ADM BRIAN Ordering Dr: Moris Watson MD Date: 02/19/24 Location: [facility] Sex: F C Admitted: 02/19/24 Test Reason [...] ECG Confirmed by MONICA ROMERO, JORGE ([id number]), society editor SHILPA VALENZUELA ([id number]) on 02/21/2024 9:44:03 AM Referred By: Confirmed By: JORGE ANDERSON MD 02/21/24 0944 Date Jorge Anderson MD CC: Dr. Kaushik Castro MD; Dr. Moris Watson MD; Dr. Marielos Perla, Signed Normal [facility] Basic Metabolic Profile (BMP )on 02-19-2024 BUN/CRE 11.9 RATIO Normal 10-20 [facility] Comment on above: Order Comment: 1Y Performed By: #### L 502.0250, L500.4100, L500.4050, L100.0100 #### [facility] [address] [place], [address] CA,Total 9.2 mg/dL Normal 8.5-10.1 [facility] Comment on above: Order Comment: 1Y Performed By: #### L 502.0250, L500.4100, L500.4050, L100.0100 #### [facility] [address] [place], [address] Chloride [Moles/Vol] 104 mmol/L Normal 98-107 [facility] Comment on above: Order Comment: 1Y Performed By: #### L 502.0250, L500.4100, L500.4050, L100.0100 #### [facility] [address] [place], [address] CO2 [Moles/Vol] 28.0 mmol/L Normal 21.0-32.0 [facility] Comment on above: Order Comment: 1Y Performed By: #### L 502.0250, L500.4100, L500.4050, L100.0100 #### [facility] [address] [place], [address] Creatinine [Mass/Vol] 1.60 mg/dL High 0.55-1.02 [facility] Comment on above: Order Comment: 1Y Result Comment: The validity of the calculated GFR GFRAA in patients over 70 years has not been determined. Clinical correlation is essential. Performed By: #### L 502.0250, L500.4100, L500.4050, L100.0100 #### [facility] [address] [place], [address] ECRCL 31.34 ml/min Normal [facility] Comment on above: Order Comment: 1Y Performed By: #### L 502.0250, L500.4100, L500.4050, L100.0100 #### [facility] [address] [place], [address] EST GFR - AA 41 mL/min Low >60 [facility] Comment on above: Order Comment: 1Y Result Comment: Afri can Bruneian GFR Calc Performed By: #### L 502.0250, L500.4100, L500.4050, L100.0100 #### [facility] [address] [place], [address] GAP 7 Normal 5-15 [facility] Comment on above: Order Comment: 1Y Performed By: #### L 502.0250, L500.4100, L500.4050, L100.0100 #### [facility] [address] [place], [address] GFR/1.73 sq M.predicted among non-blacks MDRD (S/P/Bld) [Vol rate/Area] 34 mL/min/{1.73_m2} Low >60 [facility] Comment on above: Order Comment: 1Y Result Comment: Non- GFR Calc Performed By: #### L 502.0250, L500.4100, L500.4050, L100.0100 #### [facility] [address] [place], [address] Glucose [Mass/Vol] 203 mg/dL High 74-106 [facility] Comment on above: Order Comment: 1Y Result Comment: Gluc ose result greater than or equal to 200 mg/dL suggests DIABETES MELLITUS per A.D.A. criteria. Performed By: #### L 502.0250, L500.4100, L500.4050, L100.0100 #### [facility] [address] [place], [address] Potassium [Moles/Vol] 3.8 mmol/L Normal 3.5-5.1 [facility] Comment on above: Order Comment: 1Y Performed By: #### L 502.0250, L500.4100, L500.4050, L100.0100 #### [facility] [address] [place], [address] Sodium [Moles/Vol] 139 mmol/L Normal 136-145 [facility] Comment on above: Order Comment: 1Y Performed By: #### L 502.0250, L500.4100, L500.4050, L100.0100 #### [facility] [address] [place], [address] Urea nitrogen [Mass/Vol] 19 mg/dL High 7-18 [facility] Comment on above: Order Comment: 1Y Performed By: #### L 502.0250, L500.4100, L500.4050, L100.0100 #### [facility] [address] [place], [address] Bedside Glucoseon 02-19-2024 FINGERSTICK GLU 309 mg/dL High 74-106 [facility] Comment on above: Result Comment: GENARO DANG OF PATIENT CARE PER NURSING PROTOCOL Performed By: #### L 501.080 #### [facility] [address] [place], [address] CBC W/Diff, Automatedon 11- Absolute Lymph 1.79 X10 3/uL Normal 0.83-4.51 [facility] Comment on above: Performed By: #### L 502.0250, L500.4100, L500.4050, L100.0100 #### [facility] [address] [place], [address] Absolute Neut 7.8 X10 3/uL High 2.0-7.7 [facility] Comment on above: Performed By: #### L 502.0250, L500.4100, L500.4050, L100.0100 #### [facility] [address] [place], [address] Basophils/100 WBC (Bld) 0.6 % Normal 0-1 [facility] Comment on above: Performed By: #### L 502.0250, L500.4100, L500.4050, L100.0100 #### [facility] [address] [place], [address] Eosinophils/100 WBC (Bld) 7.8 % High 0-5 [facility] Comment on above: Performed By: #### L 502.0250, L500.4100, L500.4050, L100.0100 #### [facility] [address] [place], [address] Erythrocyte distribution width (RBC) [Ratio] 15.4 % High 11.6-14.6 [facility] Comment on above: Performed By: #### L 502.0250, L500.4100, L500.4050, L100.0100 #### [facility] [address] [place], [address] Hematocrit (Bld) [Volume fraction] 44.1 % Normal 37-47 [facility] Comment on above: Performed By: #### L 502.0250, L500.4100, L500.4050, L100.0100 #### [facility] [address], [address] Hemoglobin (Bld) [Mass/Vol] 14.8 g/dL Normal 12.0-15.0 [facility] Comment on above: Performed By: #### L 502.0250, L500.4100, L500.4050, L100.0100 #### [facility] [address], [address] IG% 0.400 Normal 0.0-0.9 [facility] Comment on above: Result Comment: IG% - Immature Granulocytes (promyelocytes, myelocytes and metamyelocytes) > 1% indicates that a LEFT SHIFT is Present. Performed By: #### L 502.0250, L500.4100, L500.4050, L100.0100 #### [facility] [address] [place], [address] Lymphocytes/100 WBC (Bld) 15.8 % Low 19-41 [facility] Comment on above: Performed By: #### L 502.0250, L500.4100, L500.4050, L100.0100 #### [facility] [address] [place], [address] MCH (RBC) [Entitic mass] 30.6 pg Normal 27.0-32.0 [facility] Comment on above: Performed By: #### L 502.0250, L500.4100, L500.4050, L100.0100 #### [facility] [address] [place], [address] MCHC (RBC) [Mass/Vol] 33.6 g/dL Normal 32-36 [facility] Comment on above: Performed By: #### L 502.0250, L500.4100, L500.4050, L100.0100 #### [facility] [address] [place], [address] MCV (RBC) [Entitic vol] 91.3 fL Normal 81-99 [facility] Comment on above: Performed By: #### L 502.0250, L500.4100, L500.4050, L100.0100 #### [facility] [address] [place], [address] Monocytes/100 WBC (Bld) 6.8 % Normal 0-10 [facility] Comment on above: Performed By: #### L 502.0250, L500.4100, L500.4050, L100.0100 #### [facility] [address] [place], [address] Neutrophils/100 WBC (Bld) 68.6 % Normal 47-70 [facility] Comment on above: Performed By: #### L 502.0250, L500.4100, L500.4050, L100.0100 #### [facility] [address] [place], [address] Nucleated RBC (Bld) [#/Vol] 0 10*3/uL Normal 0-5 [facility] Comment on above: Performed By: #### L 502.0250, L500.4100, L500.4050, L100.0100 #### [facility] [address] [place], [address] Platelet mean volume (Bld) [Entitic vol] 11.0 fL Normal 6.2-12.0 [facility] Comment on above: Performed By: #### L 502.0250, L500.4100, L500.4050, L100.0100 #### [facility] [address] [place], [address] Platelets (Bld) [#/Vol] 276 10*3/uL Normal 150-450 [facility] Comment on above: Performed By: #### L 502.0250, L500.4100, L500.4050, L100.0100 #### [facility] [address] [place], [address] RBC (Bld) [#/Vol] 4.83 10*6/uL Normal 4.2-5.4 [facility] Comment on above: Performed By: #### L 502.0250, L500.4100, L500.4050, L100.0100 #### [facility] [address] [place], [address] RDW SD 51.3 fl High 35.1-43.9 [facility] Comment on above: Performed By: #### L 502.0250, L500.4100, L500.4050, L100.0100 #### [facility] [address] [place], [address] WBC (Bld) [#/Vol] 11.3 10*3/uL High 4.4-11.0 [facility] Comment on above: Performed By: #### L 502.0250, L500.4100, L500.4050, L100.0100 #### [facility] [address] [place], [address] CTA Chest W/WO Contraston CTA Chest W/WO Contrast [facility] Imaging Services [address] [place] [address] CTA Chest W/WO Contrast MR#: [id number] Acct: [id number] Name: CHRISTY FRANCIS Rep #: [id number] : 1950 F 74 From: Stoney Gatica MD PCP: Dr. Marielos Perla DO Status: ADM BRIAN Study: CTA Chest W/WO Contrast Date of Exam: 02/19/24 Exam# [id number] Ordering Dr: Grant Castelan DO [id number] STUDY: CTA CHEST REASON FOR EXAM: Female, [...] Grant Castelan DO; Dr. Marielos Perla DO Plane Captain: Signed Normal [facility] Chest 1 View (Portable)on Chest 1 View (Portable) [facility] Imaging Services [address] [place] [address] Chest 1 View (Portable) MR#: [id number] Acct: [id number] Name: CHRISTY FRANCIS Rep #: [id number] : 1950 F 74 From: Cirilo Ybarra MD PCP: Dr. Marielos Perla DO Status: PRE ER Study: Chest 1 View (Portable) Date of Exam: 02/19/24 Exam# [id number] Ordering Dr: Moris Watson MD [id number] EXAM: XR CHEST, 1 VIEW CLINICAL INDICATION: [...] 15:14 EDT Reading Location ID and State: [facility] / [place] Tel , Service support , CC: Dr. Moris Watson MD; Dr. Marielos Perla DO Plane Captain: Signed Normal [facility] D-Dimer Quantitative (DVT/PE )on 02-19-2024 D-DIMER QUANT 1.08 FEU/ug/m Invalid Interpretation Code 0.27-0.49 [facility] Comment on above: Result Comment: D-Di nubia ELEVATED (>0.49): Additional studies and clinical assessments are indicated to conclude diagnosis of: Deep Vein Thrombosis (DVT) or Pulmonary Embolism (PE) CRITICAL VALUE CALLED TO PILY 02/19/24 1809 Michelle Tovar. RESULTS READ BACK BY SAME. Performed By: #### L 501.080 #### [facility] [address] [place], [address] Emergency Department Summary on 02-19-2024 Emergency Department Summary [facility] Medical Records Department [address] [place] [address] Emergency Department Summary 02/19/24 MR#: [id number] Acct: [id number] Name: CHRISTY FRANCIS Rep #: [id number] : 1950 74 From: Moris Watson MD [...] Mechanical loosening of prosthetic knee Atherosclerosis of [place] coronary artery of [place] heart without angina pectoris PAD (peripheral artery [...] and chest (more content not included)... Normal [facility] H AND P Exam - Hospitaliston 02-19-2024 H&P Exam - Hospitalist [facility] Medical Records Department [address] [place] [address] H P Exam - Hospitalist 02/19/24 1732 MR#: [id number] Acct: [id number] Name: CHRISTY FRANCIS Rep #: [id number] : 1950 74 From: Grant Castelan DO PCP: Dr. Marielos Perla DO Status:ADM BRIAN Location: [place] [address] HPI - General General Date of Service: 02/19/24 Chief Complaint: chest pain HPI Narrative CHRISTY FRANCIS, is a 74 F with history of coronary artery disease and peripheral arterial disease who presents with 2-day history of chest pain as left-sided, radiating to her left arm as well as exertional chest pain. Was rather mild yesterday but increased intensity today. Symptoms naehd when she stops. Patient's phosxull-rl-zab is in the room and states the [...] cardiac in the hospital service was contacted. [facility] Medical History Palpitations Right rotator cuff tear Trigger finger of both hands Carpal tunnel syndrome on both sides FHx: cholecystectomy History of left heart catheterization (LHC) ( 06/03/21) Essential hypertension Mechanical loosening of prosthetic knee Atherosclerosis of [place] coronary artery of [place] heart without angina pectoris PAD (peripheral artery [...] Pulse O (more content not included)... Normal [facility] L501.4020on 02-19-2024 TROPONIN-I HS 19 pg/mL Normal 3.0-54.0 [facility] Comment on above: Order Comment: Comme nts: SPECIMEN #3'TROP' Serial specimen #1, #2 or #3: 3 Result Comment: Plea se Note: New Test Units and Gender Specific Reference Ranges. For more information see Policy Stat Procedure [place] High Sensitivity Troponin (TNIH) and attachments. Performed By: #### L 502.0250, L500.4100, L500.4050, L100.0100 #### [facility] [address] [place], [address] TROPONIN-I HS 20 pg/mL Normal 3.0-54.0 [facility] Comment on above: Result Comment: Plea se Note: New Test Units and Gender Specific Reference Ranges. For more information see Policy Stat Procedure [place] High Sensitivity Troponin (TNIH) and attachments. Performed By: #### L 501.4020 ####[facility] [address] [place], [address] L501.5425on 02-19-2024 TROPONIN-I HS 19 pg/mL Normal 3.0-54.0 [facility] Comment on above: Order Comment: 1Y Result Comment: Plea se Note: New Test Units and Gender Specific Reference Ranges. For more information see Policy Stat Procedure [place] High Sensitivity Troponin (TNIH) and attachments. Performed By: #### L 502.0250, L500.4100, L500.4050, L100.0100 #### [facility] [address] [place], [address] Prothrombin Time w/INRon INR Coag (PPP) [Relative time] 1.1 {INR} Normal [facility] Comment on above: Performed By: #### L 502.0250, L500.4100, L500.4050, L100.0100 #### [facility] [address] [place], [address] PT Coag (PPP) [Time] 14.0 s Normal 11.7-14.9 [facility] Comment on above: Performed By: #### L 502.0250, L500.4100, L500.4050, L100.0100 #### [facility] [address] [place], [address] CBC W/Diff, Automatedon 10-1 0-4 Absolute Lymph 1.72 X10 3/uL Normal 0.83-4.51 [facility] Comment on above: Performed By: #### L 502.0250, L500.4100, L500.4050, L100.0100 #### [facility] [address] [place], [address] Absolute Neut 5.0 X10 3/uL Normal 2.0-7.7 [facility] Comment on above: Performed By: #### L 502.0250, L500.4100, L500.4050, L100.0100 #### [facility] [address] [place], [address] Basophils/100 WBC (Bld) 0.6 % Normal 0-1 [facility] Comment on above: Performed By: #### L 502.0250, L500.4100, L500.4050, L100.0100 #### [facility] [address] [place], [address] Eosinophils/100 WBC (Bld) 12.8 % High 0-5 [facility] Comment on above: Performed By: #### L 502.0250, L500.4100, L500.4050, L100.0100 #### [facility] [address] [place], [address] Erythrocyte distribution width (RBC) [Ratio] 15.8 % High 11.6-14.6 [facility] Comment on above: Performed By: #### L 502.0250, L500.4100, L500.4050, L100.0100 #### [facility] [address] [place], [address] Hematocrit (Bld) [Volume fraction] 43.8 % Normal 37-47 [facility] Comment on above: Performed By: #### L 502.0250, L500.4100, L500.4050, L100.0100 #### [facility] [address] [place], [address] Hemoglobin (Bld) [Mass/Vol] 13.8 g/dL Normal 12.0-15.0 [facility] Comment on above: Performed By: #### L 502.0250, L500.4100, L500.4050, L100.0100 #### [facility] [address] [place], [address] IG% 0.500 Normal 0.0-0.9 [facility] Comment on above: Result Comment: IG% - Immature Granulocytes (promyelocytes, myelocytes and metamyelocytes) > 1% indicates that a LEFT SHIFT is Present. Performed By: #### L 502.0250, L500.4100, L500.4050, L100.0100 #### [facility] [address] [place], [address] Lymphocytes/100 WBC (Bld) 20.3 % Normal 19-41 [facility] Comment on above: Performed By: #### L 502.0250, L500.4100, L500.4050, L100.0100 #### [facility] [address], [address] MCH (RBC) [Entitic mass] 29.7 pg Normal 27.0-32.0 [facility] Comment on above: Performed By: #### L 502.0250, L500.4100, L500.4050, L100.0100 #### [facility] [address] [place], [address] MCHC (RBC) [Mass/Vol] 31.5 g/dL Low 32-36 [facility] Comment on above: Performed By: #### L 502.0250, L500.4100, L500.4050, L100.0100 #### [facility] [address] [place], [address] MCV (RBC) [Entitic vol] 94.4 fL Normal 81-99 [facility] Comment on above: Performed By: #### L 502.0250, L500.4100, L500.4050, L100.0100 #### [facility] [address] [place], [address] Monocytes/100 WBC (Bld) 7.1 % Normal 0-10 [facility] Comment on above: Performed By: #### L 502.0250, L500.4100, L500.4050, L100.0100 #### [facility] [address] [place], [address] Neutrophils/100 WBC (Bld) 58.7 % Normal 47-70 [facility] Comment on above: Performed By: #### L 502.0250, L500.4100, L500.4050, L100.0100 #### [facility] [address] [place], [address] Nucleated RBC (Bld) [#/Vol] 0 10*3/uL Normal 0-5 [facility] Comment on above: Performed By: #### L 502.0250, L500.4100, L500.4050, L100.0100 #### [facility] [address] [place], [address] Platelet mean volume (Bld) [Entitic vol] 11.1 fL Normal 6.2-12.0 [facility] Comment on above: Performed By: #### L 502.0250, L500.4100, L500.4050, L100.0100 #### [facility] [address] [place], [address] Platelets (Bld) [#/Vol] 296 10*3/uL Normal 150-450 [facility] Comment on above: Performed By: #### L 502.0250, L500.4100, L500.4050, L100.0100 #### [facility] [address] [place], [address] RBC (Bld) [#/Vol] 4.64 10*6/uL Normal 4.2-5.4 [facility] Comment on above: Performed By: #### L 502.0250, L500.4100, L500.4050, L100.0100 #### [facility] [address] [place], [address] RDW SD 54.3 fl High 35.1-43.9 [facility] Comment on above: Performed By: #### L 502.0250, L500.4100, L500.4050, L100.0100 #### [facility] [address] [place], [address] WBC (Bld) [#/Vol] 8.5 10*3/uL Normal 4.4-11.0 [facility] Comment on above: Performed By: #### L 502.0250, L500.4100, L500.4050, L100.0100 #### [facility] [address] [place], [address] Comprehensive Metabolic [facility] 01-27-2024 Albumin [Mass/Vol] 3.2 g/dL Normal 3.2-5.0 [facility] Comment on above: Performed By: #### L 502.0250, L500.4100, L500.4050, L100.0100 #### [facility] [address] [place], [address] Albumin/Globulin [Mass ratio] 0.8 {ratio} Low 0.9-2.4 [facility] Comment on above: Performed By: #### L 502.0250, L500.4100, L500.4050, L100.0100 #### [facility] [address] [place], [address] ALK P 84 U/L Normal 45-117 [facility] Comment on above: Performed By: #### L 502.0250, L500.4100, L500.4050, L100.0100 #### [facility] [address] [place], [address] ALT [Catalytic activity/Vol] 18 U/L Normal 13-56 [facility] Comment on above: Performed By: #### L 502.0250, L500.4100, L500.4050, L100.0100 #### [facility] [address] [place], [address] AST [Catalytic activity/Vol] 20 U/L Normal 15-37 [facility] Comment on above: Performed By: #### L 502.0250, L500.4100, L500.4050, L100.0100 #### [facility] [address] [place], [address] Bilirubin [Mass/Vol] 0.30 mg/dL Normal 0.20-1.00 [facility] Comment on above: Result Comment: For patients on eltrombopag therapy, use of Dimension Climax TBIL is not recommended. Performed By: #### L 502.0250, L500.4100, L500.4050, L100.0100 #### [facility] [address] [place], [address] BUN/CRE 23.6 RATIO High 10-20 [facility] Comment on above: Performed By: #### L 502.0250, L500.4100, L500.4050, L100.0100 #### [facility] [address] [place], [address] CA,Total 9.3 mg/dL Normal 8.5-10.1 [facility] Comment on above: Performed By: #### L 502.0250, L500.4100, L500.4050, L100.0100 #### [facility] [address] [place], [address] Chloride [Moles/Vol] 106 mmol/L Normal 98-107 [facility] Comment on above: Performed By: #### L 502.0250, L500.4100, L500.4050, L100.0100 #### [facility] [address] [place], [address] CO2 [Moles/Vol] 27.0 mmol/L Normal 21.0-32.0 [facility] Comment on above: Performed By: #### L 502.0250, L500.4100, L500.4050, L100.0100 #### [facility] [address] [place], [address] Creatinine [Mass/Vol] 1.40 mg/dL High 0.55-1.02 [facility] Comment on above: Result Comment: The validity of the calculated GFR GFRAA in patients over 70 years has not been determined. Clinical correlation is essential. Performed By: #### L 502.0250, L500.4100, L500.4050, L100.0100 #### [facility] [address] [place], [address] EST GFR - AA 47 mL/min Low >60 [facility] Comment on above: Result Comment: Afri can Brune[place] GFR Calc Performed By: #### L 502.0250, L500.4100, L500.4050, L100.0100 #### [facility] [address] [place], [address] GAP 6 Normal 5-15 [facility] Comment on above: Performed By: #### L 502.0250, L500.4100, L500.4050, L100.0100 #### [facility] [address] [place], [address] GFR/1.73 sq M.predicted among non-blacks MDRD (S/P/Bld) [Vol rate/Area] 39 mL/min/{1.73_m2} Low >60 [facility] Comment on above: Result Comment: Non- GFR Calc Performed By: #### L 502.0250, L500.4100, L500.4050, L100.0100 #### [facility] [address] [place], [address] Globulin (S) [Mass/Vol] 4.1 g/dL Normal 2.2-4.2 [facility] Comment on above: Performed By: #### L 502.0250, L500.4100, L500.4050, L100.0100 #### [facility] [address], [address] Glucose [Mass/Vol] 168 mg/dL High 74-106 [facility] Comment on above: Result Comment: Fast ing Glucose result greater than or equal to 126 mg/dL suggests DIABETES MELLITUS per A.D.A. criteria. Performed By: #### L 502.0250, L500.4100, L500.4050, L100.0100 #### [facility] [address] [place], [address] Potassium [Moles/Vol] 3.4 mmol/L Low 3.5-5.1 [facility] Comment on above: Performed By: #### L 502.0250, L500.4100, L500.4050, L100.0100 #### [facility] [address] [place], [address] Sodium [Moles/Vol] 139 mmol/L Normal 136-145 [facility] Comment on above: Performed By: #### L 502.0250, L500.4100, L500.4050, L100.0100 #### [facility] [address] [place], [address] T PROT 7.3 g/dL Normal 6.4-8.2 [facility] Comment on above: Performed By: #### L 502.0250, L500.4100, L500.4050, L100.0100 #### [facility] [address] [place], [address] Urea nitrogen [Mass/Vol] 33 mg/dL High 7-18 [facility] Comment on above: Performed By: #### L 502.0250, L500.4100, L500.4050, L100.0100 #### [facility] [address] [place], [address] Lipid Profileon 01-27-2024 Cholesterol [Mass/Vol] 135 mg/dL Normal 200 [facility] Comment on above: Result Comment: <200 mg/dL Desirable 200-240 mg/dL Borderline >240 mg/dL High Risk Performed By: #### L 502.0250, L500.4100, L500.4050, L100.0100 #### [facility] [address] [place], [address] Cholesterol in HDL [Mass/Vol] 48 mg/dL Normal [facility] Comment on above: Result Comment: The drugs N-Acetylcysteine and Metamizole may falsely depress this assay. Reference Range HDL <40 mg/dL Low HDL Cholesterol HDL >or= 60 mg/dL High HDL Cholesterol Performed By: #### L 502.0250, L500.4100, L500.4050, L100.0100 #### [facility] [address] [place], [address] Cholesterol in LDL [Mass/Vol] 51 mg/dL Normal 0-130 [facility] Comment on above: Performed By: #### L 502.0250, L500.4100, L500.4050, L100.0100 #### [facility] [address] [place], [address] Cholesterol in VLDL [Mass/Vol] 36 mg/dL Normal 5-40 [facility] Comment on above: Performed By: #### L 502.0250, L500.4100, L500.4050, L100.0100 #### [facility] [address] [place], [address] Triglyceride [Mass/Vol] 180 mg/dL Normal [facility] Comment on above: Result Comment: The drugs N-Acetylcysteine and Metamizole may falsely depress this assay. Serum Triglycerides Reference Interval Normal <150 mg/dL Borderline high 150 - 199 mg/dL High 200 - 499 mg/dL Very High > or = 500 mg/dL Performed By: #### L 502.0250, L500.4100, L500.4050, L100.0100 #### [facility] [address] [place], [address] Microalb:Creat Ratio,Random URon 01-27-2024 Creatinine [Mass/Vol] 104.00 mg/dL Normal NO RAN GE EST. [facility] Comment on above: Performed By: #### L 502.0250, L500.4100, L500.4050, L100.0100 #### [facility] [address] [place], [address] MALB:CRE 901.9 mg/g CRE High <30 mg/g CRE [facility] Comment on above: Performed By: #### L 502.0250, L500.4100, L500.4050, L100.0100 #### [facility] [address] [place], [address] MICROALBUMIN,UR 938.0 mg/L Normal NO RANGE EST. [facility] Comment on above: Performed By: #### L 502.0250, L500.4100, L500.4050, L100.0100 #### [facility] [address] [place], [address] Basophil percentageOrdered B y: Marielos Perla on 06-14-2023 Creatinine [Mass/Vol] 1.4 mg/dL 0.55-1.02 [facility] - Chemistry and C hemistry - challengeOrdered By: Marielos Perla on 06-14-2023 GFR/1.73 sq M.predicted among non-blacks MDRD (S/P/Bld) [Vol rate/Area] 40.0000 mL/min/{1.73_m2} >60 [facility] Absolute lymphocyte countOrd ered By: Marielos Perla on 11-23-2022 Lymphocytes Auto (Unsp spec) [#/Vol] 2.13 10*3/uL 0.83-4.51 [facility] Basophil percentageOrdered B y: Marielos Perla on 11-23-2022 Basophils/100 WBC (Bld) 0.9 % 0-1 [facility] Bilirubin [Mass/Vol] 0.40 mg/dL 0.20-1.00 [facility] Comment on above: For patients on eltr ombopag therapy, use of Dimension Climax TBIL is not recommended. Chloride [Moles/Vol] 106 mmol/L 98-107 [facility] Cholesterol [Mass/Vol] 165 mg/dL <200 [facility] Comment on above: <200 mg/dL Desirable 200-240 mg/dL Borderline >240 mg/dL High Risk Eosinophils/100 WBC (Bld) 7.6 % 0-5 [facility] Glucose [Mass/Vol] 183 mg/dL 74-106 [facility] Comment on above: Fasting Glucose resu lt greater than or equal to 126 mg/dL suggests DIABETES MELLITUS per A.D.A. criteria. Neutrophils (Bld) [#/Vol] 4.6 10*3/uL 2.0-7.7 [facility] Neutrophils/100 WBC (Bld) 55.9 % 47-70 [facility] Potassium [Moles/Vol] 4.3 mmol/L 3.5-5.1 [facility] Protein [Mass/Vol] 7.5 g/dL 6.4-8.2 [facility] Sodium [Moles/Vol] 138 mmol/L 136-145 [facility] Triglyceride [Mass/Vol] 241 mg/dL <199 [facility] Comment on above: The drugs N-Acetylcy steine and Metamizole may falsely depress this assay.Serum Triglycerides Reference Interval Normal <150 mg/dL Borderline high 150 - 199 mg/dL High 200 - 499 mg/dL Very High > or = 500 mg/dL WBC (Bld) [#/Vol] 8.1 10*3/uL 4.4-11.0 [facility] Blood erythrocytes count (nu mber/volume)Ordered By: Marielos Perla on 11-23-2022 RBC (Bld) [#/Vol] 4.97 10*6/uL 4.2-5.4 [facility] Blood hemoglobin measurement (mass/volume)Ordered By: Marielos Perla on 11-23-2022 Hemoglobin (Bld) [Mass/Vol] 15.5 g/dL 12.0-15.0 [facility] Blood lymphocytes/100 leukoc ytesOrdered By: Marielos Perla on 11-23-2022 Lymphocytes/100 WBC (Bld) 26.2 % 19-41 [facility] Blood monocytes/100 leukocyt esOrdered By: Marielos Perla on 11-23-2022 Monocytes/100 WBC (Bld) 9.0 % 0-10 [facility] Blood platelet mean volumeOr dered By: Marielos Perla on 11-23-2022 Platelet mean volume (Bld) [Entitic vol] 11.1 fL 6.2-12.0 [facility] Determination of erythrocyte mean corpuscular volume (MCV)Ordered By: Marielos Perla on 11-23-2022 MCV (RBC) [Entitic vol] 92.6 fL 81-99 [facility] Hematocrit Auto (Bld) [Volum e fraction]Ordered By: Marielos Perla on 11-23-2022 Hematocrit (Bld) [Volume fraction] 46.0 % 37-47 [facility] - Chemistry and C hemistry - challengeOrdered By: Marielos Perla on 11-23-2022 ALP [Catalytic activity/Vol] 65 U/L 45-117 [facility] ALT [Catalytic activity/Vol] 29 U/L 13-56 [facility] CO2 [Moles/Vol] 27.0 mmol/L 21.0-32.0 [facility] Globulin (S) [Mass/Vol] 3.9 g/dL 2.2-4.2 [facility] Urea nitrogen/Creatinine [Mass ratio] 18.0 mg/mg 10-20 [facility] - Hematology and Cell countsOrdered By: Marielos Perla on 11-23-2022 Erythrocyte distribution width (RBC) [Entitic vol] 45.6 fL 35.1-43.9 [facility] Erythrocyte distribution width (RBC) [Ratio] 13.5 % 11.6-14.6 [facility] Immature granulocytes/100 WBC (Bld) 0.400 % 0.0-0.9 [facility] Comment on above: IG% - Immature Granu locytes (promyelocytes, myelocytes and metamyelocytes) > 1% indicates that a LEFT SHIFT is Present. MCH (RBC) [Entitic mass] 31.2 pg 27.0-32.0 [facility] Nucleated RBC/100 WBC (Bld) [Ratio] 0 % 0-5 [facility] MCHC Auto (RBC) [Mass/Vol]Or dered By: Marielos Perla on 11-23-2022 MCHC (RBC) [Mass/Vol] 33.7 g/dL 32-36 [facility] No Panel InformationOrdered By: Marielos Perla on 11-23-2022 Estimated GFR (MDRD) Amer 44 mL/min >60 [facility] Comment on above: GFR Calc Estimated GFR (MDRD) Non-Af Amer 36 mL/min >60 [facility] Comment on above: Non- GFR Calc Urine Microalbumin/Creatini ne Ratio 1038.3 mg/g CRE <30 [facility] Platelets bldOrdered By: Mariposa Perla on 11-23-2022 Platelets (Bld) [#/Vol] 228 10*3/uL 150-450 [facility] Serum or plasma albumin shannon urement (mass/volume)Ordered By: Marielos Perla on 11-23-2022 Albumin [Mass/Vol] 3.6 g/dL 3.2-5.0 [facility] Serum or plasma albumin/glob ulin mass ratioOrdered By: Marielos Perla on 11-23-2022 Albumin/Globulin [Mass ratio] 0.9 {ratio} 0.9-2.4 [facility] Serum or plasma calcium shannon urement (mass/volume)Ordered By: Marielos Perla on 11-23-2022 Calcium [Mass/Vol] 9.1 mg/dL 8.5-10.1 [facility] Serum or plasma cholesterol in HDL measurement (mass/volume)Ordered By: Marielos Perla on 11-23-2022 Cholesterol in HDL [Mass/Vol] 51 mg/dL >40 [facility] Comment on above: The drugs N-Acetylcy steine and Metamizole may falsely depress this assay. Reference Range HDL <40 mg/dL Low HDL Cholesterol HDL >or= 60 mg/dL High HDL Cholesterol Serum or plasma cholesterol in VLDL measurement (mass/volume)Ordered By: Marielos Perla on 11-23-2022 Cholesterol in VLDL [Mass/Vol] 48 mg/dL 5-40 [facility] Serum or plasma creatinine m easurement (mass/volume)Ordered By: Marielos Perla on 11-23-2022 Creatinine [Mass/Vol] 1.50 mg/dL 0.55-1.02 [facility] Comment on above: The validity of the calculated GFR & GFRAA in patients over 70 years has not been determined. Clinical correlation is essential. Serum or plasma low density lipoprotein (LDL) cholesterol measurement (mass/volume)Ordered By: Marielos Perla on 11-23-2022 Cholesterol in LDL [Mass/Vol] 66 mg/dL 0-130 [facility] Serum or plasma urea nitroge n measurement (mass/volume)Ordered By: Marielos Perla on 11-23-2022 Urea nitrogen [Mass/Vol] 27 mg/dL 7-18 [facility] Thin prep Papanicolaou smear with manual screeningOrdered By: Marielos Perla on 11-23-2022 Thin prep Papanicolaou smear with manual screening 24 U/L 15-37 [facility] Thin prep Papanicolaou smear with manual screening 5 5-15 [facility] Thin prep Papanicolaou smear with manual screening 325.0 mg/L NO RANGE EST. [facility] Urine creatinine measurement (mass/volume)Ordered By: Marielos Perla on 11-23-2022 Creatinine (U) [Mass/Vol] 31.30 mg/dL NO RANGE EST. [facility] Basophil percentageOrdered B y: Charlie Johnson on 08-14-2022 Bilirubin [Mass/Vol] 0.30 mg/dL 0.20-1.00 [facility] Comment on above: For patients on eltr ombopag therapy, use of Dimension Climax TBIL is not recommended. Chloride [Moles/Vol] 109 mmol/L 98-107 [facility] Cholesterol [Mass/Vol] 185 mg/dL <200 [facility] Comment on above: <200 mg/dL Desirable 200-240 mg/dL Borderline >240 mg/dL High Risk Glucose [Mass/Vol] 70 mg/dL 74-106 [facility] Potassium [Moles/Vol] 4.2 mmol/L 3.5-5.1 [facility] Protein [Mass/Vol] 7.3 g/dL 6.4-8.2 [facility] Sodium [Moles/Vol] 141 mmol/L 136-145 [facility] Triglyceride [Mass/Vol] 360 mg/dL <199 [facility] Comment on above: The drugs N-Acetylcy steine and Metamizole may falsely depress this assay.Serum Triglycerides Reference Interval Normal <150 mg/dL Borderline high 150 - 199 mg/dL High 200 - 499 mg/dL Very High > or = 500 mg/dL WBC (Bld) [#/Vol] 10.0 10*3/uL 4.4-11.0 [facility] Blood erythrocytes count (nu mber/volume)Ordered By: Charlie Johnson on 08-14-2022 RBC (Bld) [#/Vol] 5.23 10*6/uL 4.2-5.4 [facility] Blood hemoglobin measurement (mass/volume)Ordered By: Charlie Johnson on 08-14-2022 Hemoglobin (Bld) [Mass/Vol] 15.9 g/dL 12.0-15.0 [facility] Blood platelet mean volumeOr dered By: Charlie Johnson on 08-14-2022 Platelet mean volume (Bld) [Entitic vol] 10.5 fL 6.2-12.0 [facility] Determination of erythrocyte mean corpuscular volume (MCV)Ordered By: Charlie Johnson on 08-14-2022 MCV (RBC) [Entitic vol] 95.2 fL 81-99 [facility] Direct bilirubinOrdered By: Charlie Johnson on 08-14-2022 Bilirubin.direct [Mass/Vol] 0.08 mg/dL 0.00-0.30 [facility] Hematocrit Auto (Bld) [Volum e fraction]Ordered By: Charlie Johnson on 08-14-2022 Hematocrit (Bld) [Volume fraction] 49.8 % 37-47 [facility] - Chemistry and C hemistry - challengeOrdered By: Charlie Johnson on 08-14-2022 ALP [Catalytic activity/Vol] 68 U/L 45-117 [facility] ALT [Catalytic activity/Vol] 25 U/L 13-56 [facility] CO2 [Moles/Vol] 28.0 mmol/L 21.0-32.0 [facility] Globulin (S) [Mass/Vol] 4.0 g/dL 2.2-4.2 [facility] Natriuretic peptide B (Bld) [Mass/Vol] 336.8 pg/mL 0-100 [facility] Urea nitrogen/Creatinine [Mass ratio] 19.0 mg/mg 10-20 [facility] - Hematology and Cell countsOrdered By: Charlie Johnson on 08-14-2022 Erythrocyte distribution width (RBC) [Entitic vol] 48.3 fL 35.1-43.9 [facility] Erythrocyte distribution width (RBC) [Ratio] 13.8 % 11.6-14.6 [facility] MCH (RBC) [Entitic mass] 30.4 pg 27.0-32.0 [facility] MCHC Auto (RBC) [Mass/Vol]Or dered By: Charlie Johnson on 08-14-2022 MCHC (RBC) [Mass/Vol] 31.9 g/dL 32-36 [facility] No Panel InformationOrdered By: Charlie Johnson on 08-14-2022 Estimated GFR (MDRD) Amer 49 mL/min >60 [facility] Comment on above: GFR Calc Estimated GFR (MDRD) Non-Af Amer 40 mL/min >60 [facility] Comment on above: Non- GFR Calc Platelets bldOrdered By: Liban Johnson on 08-14-2022 Platelets (Bld) [#/Vol] 309 10*3/uL 150-450 [facility] Serum or plasma albumin shannon urement (mass/volume)Ordered By: Charlie Johnson on 08-14-2022 Albumin [Mass/Vol] 3.3 g/dL 3.2-5.0 [facility] Serum or plasma calcium shannon urement (mass/volume)Ordered By: Charlie Johnson on 08-14-2022 Calcium [Mass/Vol] 9.3 mg/dL 8.5-10.1 [facility] Serum or plasma cholesterol in HDL measurement (mass/volume)Ordered By: Charlie Johnson on 08-14-2022 Cholesterol in HDL [Mass/Vol] 48 mg/dL >40 [facility] Comment on above: The drugs N-Acetylcy steine and Metamizole may falsely depress this assay. Reference Range HDL <40 mg/dL Low HDL Cholesterol HDL >or= 60 mg/dL High HDL Cholesterol Serum or plasma cholesterol in VLDL measurement (mass/volume)Ordered By: Charlie Johnson on 08-14-2022 Cholesterol in VLDL [Mass/Vol] 72 mg/dL 5-40 [facility] Serum or plasma creatinine m easurement (mass/volume)Ordered By: Charlie Johnson on 08-14-2022 Creatinine [Mass/Vol] 1.37 mg/dL 0.55-1.02 [facility] Comment on above: The validity of the calculated GFR & GFRAA in patients over 70 years has not been determined. Clinical correlation is essential. Serum or plasma low density lipoprotein (LDL) cholesterol measurement (mass/volume)Ordered By: Charlie Johnson on 08-14-2022 Cholesterol in LDL [Mass/Vol] 65 mg/dL 0-130 [facility] Serum or plasma urea nitroge n measurement (mass/volume)Ordered By: Charlie Johnson on 08-14-2022 Urea nitrogen [Mass/Vol] 26 mg/dL 7-18 [facility] Thin prep Papanicolaou smear with manual screeningOrdered By: Charlie Johnson on 08-14-2022 Thin prep Papanicolaou smear with manual screening 24 U/L 15-37 [facility] Thin prep Papanicolaou smear with manual screening 4 5-15 [facility] Basophil percentageOrdered B y: Charlie Johnson on 02-25-2022 Bilirubin [Mass/Vol] 0.30 mg/dL 0.20-1.00 [facility] Comment on above: For patients on eltr ombopag therapy, use of Dimension Climax TBIL is not recommended. Cholesterol [Mass/Vol] 156 mg/dL <200 [facility] Comment on above: <200 mg/dL Desirable 200-240 mg/dL Borderline >240 mg/dL High Risk Protein [Mass/Vol] 6.7 g/dL 6.4-8.2 [facility] Triglyceride [Mass/Vol] 213 mg/dL <199 [facility] Comment on above: The drugs N-Acetylcy steine and Metamizole may falsely depress this assay.Serum Triglycerides Reference Interval Normal <150 mg/dL Borderline high 150 - 199 mg/dL High 200 - 499 mg/dL Very High > or = 500 mg/dL Direct bilirubinOrdered By: Charlie Johnson on 02-25-2022 Bilirubin.direct [Mass/Vol] 0.11 mg/dL 0.00-0.30 [facility] - Chemistry and C hemistry - challengeOrdered By: Charlie Johnson on 02-25-2022 ALP [Catalytic activity/Vol] 57 U/L 45-117 [facility] ALT [Catalytic activity/Vol] 26 U/L 13-56 [facility] Globulin (S) [Mass/Vol] 3.5 g/dL 2.2-4.2 [facility] Serum or plasma albumin hsannon urement (mass/volume)Ordered By: Charlie Johnson on 02-25-2022 Albumin [Mass/Vol] 3.2 g/dL 3.2-5.0 [facility] Serum or plasma cholesterol in HDL measurement (mass/volume)Ordered By: Charlie Johnson on 02-25-2022 Cholesterol in HDL [Mass/Vol] 50 mg/dL >40 [facility] Comment on above: The drugs N-Acetylcy steine and Metamizole may falsely depress this assay. Reference Range HDL <40 mg/dL Low HDL Cholesterol HDL >or= 60 mg/dL High HDL Cholesterol Serum or plasma cholesterol in VLDL measurement (mass/volume)Ordered By: hCarlie Johnson on 02-25-2022 Cholesterol in VLDL [Mass/Vol] 43 mg/dL 5-40 [facility] Serum or plasma low density lipoprotein (LDL) cholesterol measurement (mass/volume)Ordered By: Charlie Johnson on 11-09-2022 Cholesterol in LDL [Mass/Vol] 63 mg/dL 0-130 [facility] Thin prep Papanicolaou smear with manual screeningOrdered By: Charlie Johnson on 02-25-2022 Thin prep Papanicolaou smear with manual screening 18 U/L 15-37 [facility] Basic Metabolic Panelon 02-17 Calcium [Mass/Vol] 9.2 mg/dL Normal 8.4-10.4 [facility] Comment on above: Performed By: #### B GLU #### [facility] [address], [place] Glucose [Mass/Vol] 170 mg/dL High 70-100 [facility] Comment on above: Performed By: #### B GLU #### [facility] [address], [place] Anion gap [Moles/Vol] 11 Normal [facility] Comment on above: Performed By: #### B GLU #### [facility] [address], [place] CO2 [Moles/Vol] 25 mmol/L Normal 22-30 [facility] Comment on above: Performed By: #### B GLU #### [facility] [address], [place] Creatinine [Mass/Vol] 1.21 mg/dL Normal 0.52-1.25 [facility] Comment on above: Performed By: #### B GLU #### [facility] [address], [place] GFR/1.73 sq M predicted among blacks MDRD (S/P/Bld) [Vol rate/Area] 53.5 mL/min/{1.73_m2} Normal >60 [facility] Comment on above: Performed By: #### B GLU #### [facility] [address], [place] GFR/1.73 sq M predicted among non-blacks MDRD (S/P/Bld) [Vol rate/Area] 44.1 mL/min/{1.73_m2} Normal >60 [facility] Comment on above: Result Comment: Sour ce- MDRD equation with creatinine calibration to IDMS(NKDEP) eGFR not recommended for drug dose adjustment Performed By: #### B GLU #### [facility] [address] [place] [address] Urea nitrogen [Mass/Vol] 28 mg/dL High 7-20 [facility] Comment on above: Performed By: #### B GLU #### [facility] [address] [place] [address] Chloride [Moles/Vol] 102 mmol/L Normal 98-107 [facility] Comment on above: Performed By: #### B GLU #### [facility] [address] [place] [address] Potassium [Moles/Vol] 4.6 mmol/L Normal 3.5-5.1 [facility] Comment on above: Performed By: #### B GLU #### [facility] [address] [place] [address] Sodium [Moles/Vol] 138 mmol/L Normal 135-145 [facility] Comment on above: Performed By: #### B GLU #### [facility] [address] [place] [address] Anion gap [Moles/Vol] 11 mmol/L [place], [place] Calcium [Mass/Vol] 9.2 mg/dL 8.4 - 10. 4 mg/dL [place] Chloride [Moles/Vol] 102 mmol/L 98 - 10 7 mmol/L [place] CO2 [Moles/Vol] 25 mmol/L 22 - 30 mmol/L [place] Creatinine [Mass/Vol] 1.21 mg/dL 0.52 - 1.25 mg/dL [place] EGFR IF NonAfrican [place] 44.1 mL/min >60 [place] Comment on above: Source- MDRD equatio n with creatinine calibration to IDMS(NKDEP) eGFR not recommended for drug dose adjustment GFR/1.73 sq M predicted among blacks MDRD (S/P/Bld) [Vol rate/Area] 53.5 mL/min/{1.73_m2} >60 [place] Glucose [Mass/Vol] 170 mg/dL High 70 - 100 mg/dL [place] Interpretation and review of laboratory results Abnormal [place] Potassium [Moles/Vol] 4.6 mmol/L 3.5 - 5.1 mmol/L [place] Sodium [Moles/Vol] 138 mmol/L 135 - 145 mmol/L [place] Urea nitrogen [Mass/Vol] 28 mg/dL High 7 - 20 mg/dL [place] Test Performed by [facility], [address] [place] [id number] [place], [place] [facility]Con 03-03-2019 Erythrocyte distribution width (RBC) [Ratio] 13.1 % 11.5 - 14.5 % [place] Hematocrit (Bld) [Volume fraction] 32.0 % Low 35 - 47 % [place] Hemoglobin (Bld) [Mass/Vol] 10.6 g/dL Low 11.7 - 16 g/dL [place] Interpretation and review of laboratory results Abnormal [place] MCH (RBC) [Entitic mass] 30.4 pg 26 - 34 pg [place] MCHC (RBC) [Mass/Vol] 33.1 % 32 - 36 % [place] MCV (RBC) [Entitic vol] 91.7 fL 79 - 98 fL [place] Platelet mean volume (Bld) [Entitic vol] 9.4 fL 7.4 - 10.4 fL [place] Platelets (Bld) [#/Vol] 201 10*3/uL 140 - 440 10*3/uL [place] RBC (Bld) [#/Vol] 3.49 10*6/uL Low 3.8 - 5.2 10*6/uL [place] WBC (Bld) [#/Vol] 16.2 10*3/uL High 3.6 - 10.7 10*3/uL [place], [place] Test Performed by [facility], [address] [place] [address] [place], [place] CR Chest Portableon 03-03-20 19 CR Chest Portable Patient Name: CHRISTY FRANCIS Diagnostic Radiology Exam Date/Time 03/03/2019 05:56:23 EST Exam CR Chest Portable Ordering Physician TAYLOR GRANT Accession Number [id number] CPT4 Codes 53037 () Reason For Exam POST OP OPEN [...] Transcribed Date and Time: 03/03/2019 6:46 Normal [facility] Glucose,Bedsideon 03-03-2019 Glucose [Mass/Vol] 220 mg/dL High 70-100 [facility] Comment on above: Result Comment: Test performed by glucose meter. Results may be 10%-15% lower than serum/plasma values. (CLIA ID [id number]) Performed By: #### B GLU #### [address] Glucose [Mass/Vol] 224 mg/dL High 70-100 [facility] Comment on above: Result Comment: Test performed by glucose meter. Results may be 10%-15% lower than serum/plasma values. (CLIA ID [id number]) Performed By: #### B GLU #### [facility] [address], [place] Hemogramon 03-03-2019 Erythrocyte distribution width (RBC) [Ratio] 13.1 % Normal 11.5-14.5 [facility] Comment on above: Performed By: #### B GLU #### [facility] [address] [place], [place] Hematocrit (Bld) [Volume fraction] 32.0 % Low 35.0-47.0 [facility] Comment on above: Performed By: #### B GLU #### [facility] [address], [place] Hemoglobin (Bld) [Mass/Vol] 10.6 g/dL Low 11.7-16.0 [facility] Comment on above: Performed By: #### B GLU #### [facility] [address] [place], [place] MCH (RBC) [Entitic mass] 30.4 pg Normal 26.0-34.0 [facility] Comment on above: Performed By: #### B GLU #### [address] [place], [place] MCHC (RBC) [Mass/Vol] 33.1 % Normal 32.0-36.0 [facility] Comment on above: Performed By: #### B GLU #### [address] [place], [place] MCV (RBC) [Entitic vol] 91.7 fL Normal 79.0-98.0 [facility] Comment on above: Performed By: #### B GLU #### [address] [place], [place] Platelet mean volume (Bld) [Entitic vol] 9.4 fL Normal 7.4-10.4 [facility] Comment on above: Performed By: #### B GLU #### [address] [place], [place] Platelets (Bld) [#/Vol] 201 10*3/uL Normal 140-440 [facility] Comment on above: Performed By: #### B GLU #### [address] [place], [place] RBC (Bld) [#/Vol] 3.49 10*6/uL Low 3.80-5.20 [facility] Comment on above: Performed By: #### B GLU #### [address] [place], [place] WBC (Bld) [#/Vol] 16.2 10*3/uL High 3.6-10.7 [facility] Comment on above: Performed By: #### B GLU #### [address] [place] [address] POCT Glucoseon 03-03-2019 Glucose [Mass/Vol] 220 mg/dL High 70 - 100 mg/dL [facility] [place] Comment on above: Test performed by gl ucose meter. Results may be 10%-15% lower than serum/plasma values. (CLIA ID [id number]) Interpretation and review of laboratory results Abnormal [place], [place] Test Performed by [facility], [address] [place] [address] [facility] [place] Glucose [Mass/Vol] 224 mg/dL High 70 - 100 mg/dL [facility] [place] Comment on above: Test performed by gl ucose meter. Results may be 10%-15% lower than serum/plasma values. (CLIA ID [id number]) Interpretation and review of laboratory results Abnormal [place], [place] Test Performed by [facility], [address] [place] [address] [facility] [place] XR CHEST PORTABLEon 03-03-20 19 [facility] Incoming Radiology [facility] - 03/03/2019 6:48 AM EST Patient Name: CHRISTY FRANCIS ---Diagnostic Radiology--- Exam Date/Time 03/03/2019 05:56:23 EST Exam CR Chest Portable Ordering Physician GRANT TAYLOR Accession Number [id number] CPT4 Codes 75482 () Reason For Exam POST OP OPEN [...] JEFFREY Transcribed Date and Time: 03/03/2019 6:46 [place], [place] Patient Name: CHRISTY FRANCIS ---Diagnostic Radiology--- Exam Date/Time 03/03/2019 05:56:23 EST Exam CR Chest Portable Ordering Physician GRANT TAYLOR Accession Number [id number] CPT4 Codes 85953 () Reason For Exam POST OP OPEN [...] JEFFREY Transcribed Date and Time: 03/03/2019 6:46 [place], [place] Basic Metabolic Panelon 11- Calcium [Mass/Vol] 9.3 mg/dL Normal 8.4-10.4 [facility] Comment on above: Performed By: #### B GLU #### [facility] [address], [place] Anion gap [Moles/Vol] 10 Normal [facility] Comment on above: Performed By: #### B GLU #### [facility] [address], [place] CO2 [Moles/Vol] 22 mmol/L Normal 22-30 [facility] Comment on above: Performed By: #### B GLU #### [facility] [address], [place] Creatinine [Mass/Vol] 1.24 mg/dL Normal 0.52-1.25 [facility] Comment on above: Performed By: #### B GLU #### [address] [place] [address] GFR/1.73 sq M predicted among blacks MDRD (S/P/Bld) [Vol rate/Area] 52.0 mL/min/{1.73_m2} Normal >60 [facility] Comment on above: Performed By: #### B GLU #### [address] [place], [place] GFR/1.73 sq M predicted among non-blacks MDRD (S/P/Bld) [Vol rate/Area] 42.9 mL/min/{1.73_m2} Normal >60 [facility] Comment on above: Result Comment: Sour ce- MDRD equation with creatinine calibration to IDMS(NKDEP) eGFR not recommended for drug dose adjustment Performed By: #### B GLU #### [address] [place], [place] Glucose [Mass/Vol] 253 mg/dL High 70-100 [facility] Comment on above: Performed By: #### B GLU #### [address] [place], [place] Urea nitrogen [Mass/Vol] 32 mg/dL High 7-20 [facility] Comment on above: Performed By: #### B GLU #### [address] [place], [place] Chloride [Moles/Vol] 104 mmol/L Normal 98-107 [facility] Comment on above: Performed By: #### B GLU #### [address] [place], [place] Potassium [Moles/Vol] 5.0 mmol/L Normal 3.5-5.1 [facility] Comment on above: Performed By: #### B GLU #### [address] [place] [place], [place] Sodium [Moles/Vol] 135 mmol/L Normal 135-145 [facility] Comment on above: Performed By: #### B GLU #### [address] [address] Anion gap [Moles/Vol] 10 mmol/L [place], [place] Calcium [Mass/Vol] 9.3 mg/dL 8.4 - 10. 4 mg/dL [place], [place] Chloride [Moles/Vol] 104 mmol/L 98 - 10 7 mmol/L [place], [place] CO2 [Moles/Vol] 22 mmol/L 22 - 30 mmol/L [place], [place] Creatinine [Mass/Vol] 1.24 mg/dL 0.52 - 1.25 mg/dL [place], [place] EGFR IF NonAfrican [place] 42.9 mL/min >60 [place], [place] Comment on above: Source- MDRD equatio n with creatinine calibration to IDMS(NKDEP) eGFR not recommended for drug dose adjustment GFR/1.73 sq M predicted among blacks MDRD (S/P/Bld) [Vol rate/Area] 52.0 mL/min/{1.73_m2} >60 [place], [place] Glucose [Mass/Vol] 253 mg/dL High 70 - 100 mg/dL [place], [place] Interpretation and review of laboratory results Abnormal [place], [place] Potassium [Moles/Vol] 5.0 mmol/L 3.5 - 5.1 mmol/L [place], [place] Sodium [Moles/Vol] 135 mmol/L 135 - 145 mmol/L [place], [place] Urea nitrogen [Mass/Vol] 32 mg/dL High 7 - 20 mg/dL [place], [place] Test Performed by [facility], [address] [place] [address] [place], [place] CBCon 03-02-2019 Erythrocyte distribution width (RBC) [Ratio] 13.2 % 11.5 - 14.5 % [place] Hematocrit (Bld) [Volume fraction] 33.8 % Low 35 - 47 % [place] Hemoglobin (Bld) [Mass/Vol] 11.0 g/dL Low 11.7 - 16 g/dL [place], [place] Interpretation and review of laboratory results Abnormal [place], [place] MCH (RBC) [Entitic mass] 30.3 pg 26 - 34 pg [place] MCHC (RBC) [Mass/Vol] 32.6 % 32 - 36 % [place] MCV (RBC) [Entitic vol] 92.7 fL 79 - 98 fL [place], [place] Platelet mean volume (Bld) [Entitic vol] 10.7 fL High 7.4 - 10.4 fL [place], [place] Platelets (Bld) [#/Vol] 169 10*3/uL 140 - 440 10*3/uL [place] RBC (Bld) [#/Vol] 3.65 10*6/uL Low 3.8 - 5.2 10*6/uL [place], [place] WBC (Bld) [#/Vol] 18.8 10*3/uL High 3.6 - 10.7 10*3/uL [place], [place] Test Performed by [id number] [place] [address] CR Chest Portableon 03-02-20 19 CR Chest Portable Patient Name: CHRISTY FRANCIS Diagnostic Radiology Exam Date/Time 03/02/2019 06:07:22 EST Exam CR Chest Portable Ordering Physician GRANT TAYLOR Accession Number [id number] CPT4 Codes 54516 () Reason For Exam POST OP OPEN [...] Transcribed Date and Time: 03/02/2019 6:14 Normal [facility] Echocardiogram transesophage pedro pablo 03-02-2019 Brian, [facility] Incoming Cardiology Results From [facility] - 03/02/2019 8:47 AM EST TRANSESOPHAGEAL ECHOCARDIOGRAM Intraoperative-Pre Pump Only PATIENT: Christy Francis STUDY DATE: 02/27/2019 : 1950 AGE: 69 HT/WT: 154.9 cm (61 80 kg in) (176 lb) GENDER: F BP: 98 / 57 LOCATION: [facility] PATIENT Inpatient [facility] STATUS: *ORDERING PHYSICIAN: * Ronda Carmona *READING PHYSICIAN: * Michi Dewitt, *ASSISTANT TRACK AND FIELD COACH: * Janice Trivedi MD [facility] INDICATIONS: CABG. CONCLUSIONS SUMMARY: 1. Left ventricle: [...] Michi Dewitt MD 03/02/2019 08:46 Prior Signatures: [facility] [place] TRANSESOPHAGEAL ECHOCARDIOGRAM Intraoperative-Pre Pump Only PATIENT: Christy Francis STUDY DATE: 02/27/2019 : 1950 AGE: 69 HT/WT: 154.9 cm (61 80 kg in) (176 lb) GENDER: F BP: 98 / 57 LOCATION: [facility] PATIENT Inpatient [facility] STATUS: *ORDERING PHYSICIAN: * Ronda Carmona *READING PHYSICIAN: * Michi Dewitt, *ASSISTANT TRACK AND FIELD COACH: * Janice Trivedi MD [facility] INDICATIONS: CABG. CONCLUSIONS SUMMARY: 1. Left ventricle: [...] Michi Dewitt MD 03/02/2019 08:46 Prior Signatures: [place], [place] Glucose,Bedsideon 03-02-2019 Glucose [Mass/Vol] 168 mg/dL High 70-100 [email or web address] Comment on above: Result Comment: Test performed by glucose meter. Results may be 10%-15% lower than serum/plasma values. (CLIA ID [id number]) Performed By: #### B GLU #### [employer] [address] [place] [address] Glucose [Mass/Vol] 249 mg/dL High 70-100 [email or web address] Comment on above: Result Comment: Test performed by glucose meter. Results may be 10%-15% lower than serum/plasma values. (CLIA ID [id number]) Performed By: #### B GLU #### [facility] [address], [place] Glucose [Mass/Vol] 324 mg/dL High 70-100 [facility] Comment on above: Result Comment: Test performed by glucose meter. Results may be 10%-15% lower than serum/plasma values. (CLIA ID [id number]) Performed By: #### B GLU #### [facility] [address], [place] Glucose [Mass/Vol] 347 mg/dL High 70-100 [facility] Comment on above: Result Comment: Test performed by glucose meter. Results may be 10%-15% lower than serum/plasma values. (CLIA ID [id number]) Performed By: #### B GLU #### [address] [place], [place] Hemogramon 03-02-2019 Erythrocyte distribution width (RBC) [Ratio] 13.2 % Normal 11.5-14.5 [facility] Comment on above: Performed By: #### B GLU #### [address] [place], [place] Hematocrit (Bld) [Volume fraction] 33.8 % Low 35.0-47.0 [facility] Comment on above: Performed By: #### B GLU #### [address] [place] [place], [place] Hemoglobin (Bld) [Mass/Vol] 11.0 g/dL Low 11.7-16.0 [facility] Comment on above: Performed By: #### B GLU #### [address] [place], [place] MCH (RBC) [Entitic mass] 30.3 pg Normal 26.0-34.0 [facility] Comment on above: Performed By: #### B GLU #### [facility] [address], [place] MCHC (RBC) [Mass/Vol] 32.6 % Normal 32.0-36.0 [facility] Comment on above: Performed By: #### B GLU #### [address] [place], [place] MCV (RBC) [Entitic vol] 92.7 fL Normal 79.0-98.0 [facility] Comment on above: Performed By: #### B GLU #### [facility] [address], [place] Platelet mean volume (Bld) [Entitic vol] 10.7 fL High 7.4-10.4 [facility] Comment on above: Performed By: #### B GLU #### [address] [place], [place] Platelets (Bld) [#/Vol] 169 10*3/uL Normal 140-440 [facility] Comment on above: Performed By: #### B GLU #### [address] [place], [place] RBC (Bld) [#/Vol] 3.65 10*6/uL Low 3.80-5.20 [facility] Comment on above: Performed By: #### B GLU #### [address] [place] [place], [place] WBC (Bld) [#/Vol] 18.8 10*3/uL High 3.6-10.7 [facility] Comment on above: Performed By: #### B GLU #### [address] [place], [place] POCT Glucoseon 03-02-2019 Glucose [Mass/Vol] 168 mg/dL High 70 - 100 mg/dL [place] Comment on above: Test performed by gl ucose meter. Results may be 10%-15% lower than serum/plasma values. (CLIA ID [id number]) Interpretation and review of laboratory results Abnormal [place], [place] Test Performed by [facility], [address] [place] Glucose [Mass/Vol] 249 mg/dL High 70 - 100 mg/dL [place] Comment on above: Test performed by gl ucose meter. Results may be 10%-15% lower than serum/plasma values. (CLIA ID [id number]) Interpretation and review of laboratory results Abnormal [facility] [place] Test Performed by [facility], [address] [place] [address] [employer] [place], [place] Glucose [Mass/Vol] 324 mg/dL High 70 - 100 mg/dL [facility] [place] Comment on above: Test performed by gl ucose meter. Results may be 10%-15% lower than serum/plasma values. (CLIA ID [id number]) Interpretation and review of laboratory results Abnormal [facility] [place], [place] Test Performed by [employer] [facility], [address] [place] [address] [facility] [place] [place] Glucose [Mass/Vol] 347 mg/dL High 70 - 100 mg/dL [facility] [place] Comment on above: Test performed by gl ucose meter. Results may be 10%-15% lower than serum/plasma values. (CLIA ID [id number]) Interpretation and review of laboratory results Abnormal [employer] [place] Test Performed by [employer] [facility], [address] [place] [address] [facility] [place] XR CHEST PORTABLEon 03-02-20 19 Brian, [facility] Incoming Radiology [facility] - 03/02/2019 6:17 AM EST Patient Name: CHRISTY FRANCIS ---Diagnostic Radiology--- Exam Date/Time 03/02/2019 06:07:22 EST Exam CR Chest Portable Ordering Physician GRANT TAYLOR Accession Number [id number] CPT4 Codes 09200 () Reason For Exam POST OP OPEN [...] JEFFREY Transcribed Date and Time: 03/02/2019 6:14 [place], [place] Patient Name: CHRISTY FRANCIS ---Diagnostic Radiology--- Exam Date/Time 03/02/2019 06:07:22 EST Exam CR Chest Portable Ordering Physician GRANT TAYLOR Accession Number [id number] CPT4 Codes 63445 () Reason For Exam POST OP OPEN [...] JEFFREY Transcribed Date and Time: 03/02/2019 6:14 [place], [place] Basic Metabolic Panelon 11- Calcium [Mass/Vol] 8.9 mg/dL Normal 8.4-10.4 [facility] Comment on above: Performed By: #### B GLU #### [facility] [address], [place] Glucose [Mass/Vol] 293 mg/dL High 70-100 [facility] Comment on above: Performed By: #### B GLU #### [facility] [address], [place] Anion gap [Moles/Vol] 11 Normal [facility] Comment on above: Performed By: #### B GLU #### [facility] [address], [place] CO2 [Moles/Vol] 20 mmol/L Low 22-30 [facility] Comment on above: Performed By: #### B GLU #### [facility] [address], [place] Creatinine [Mass/Vol] 1.40 mg/dL High 0.52-1.25 [facility] Comment on above: Performed By: #### B GLU #### [facility] [address] [place] [address] GFR/1.73 sq M predicted among blacks MDRD (S/P/Bld) [Vol rate/Area] 45.2 mL/min/{1.73_m2} Normal >60 [facility] Comment on above: Performed By: #### B GLU #### [address] [place], [place] GFR/1.73 sq M predicted among non-blacks MDRD (S/P/Bld) [Vol rate/Area] 37.3 mL/min/{1.73_m2} Normal >60 [facility] Comment on above: Result Comment: Sour ce- MDRD equation with creatinine calibration to IDMS(NKDEP) eGFR not recommended for drug dose adjustment Performed By: #### B GLU #### [address] [place], [place] Urea nitrogen [Mass/Vol] 33 mg/dL High 7-20 [facility] Comment on above: Performed By: #### B GLU #### [address] [place], [place] Chloride [Moles/Vol] 102 mmol/L Normal 98-107 [facility] Comment on above: Performed By: #### B GLU #### [address] [place], [place] Potassium [Moles/Vol] 5.5 mmol/L High 3.5-5.1 [facility] Comment on above: Performed By: #### B GLU #### [address] [place], [place] Sodium [Moles/Vol] 132 mmol/L Low 135-145 [facility] Comment on above: Performed By: #### B GLU #### [address] [place] [address] Anion gap [Moles/Vol] 11 mmol/L [place], [place] Calcium [Mass/Vol] 8.9 mg/dL 8.4 - 10. 4 mg/dL [place], [place] Chloride [Moles/Vol] 102 mmol/L 98 - 10 7 mmol/L [place] CO2 [Moles/Vol] 20 mmol/L Low 22 - 30 mmol/L [place] Creatinine [Mass/Vol] 1.4 mg/dL High 0.52 - 1.25 mg/dL [place], [place] EGFR IF NonAfrican [place] 37.3 mL/min >60 [place] Comment on above: Source- MDRD equatio n with creatinine calibration to IDMS(NKDEP) eGFR not recommended for drug dose adjustment GFR/1.73 sq M predicted among blacks MDRD (S/P/Bld) [Vol rate/Area] 45.2 mL/min/{1.73_m2} >60 [place], [place] Glucose [Mass/Vol] 293 mg/dL High 70 - 100 mg/dL [place], [place] Interpretation and review of laboratory results Abnormal [place], [place] Potassium [Moles/Vol] 5.5 mmol/L High 3.5 - 5.1 mmol/L [place] Sodium [Moles/Vol] 132 mmol/L Low 135 - 145 mmol/L [place] Urea nitrogen [Mass/Vol] 33 mg/dL High 7 - 20 mg/dL [place], [place] Test Performed by [facility], [facility] [place] [address] [place], [place] Calcium [Mass/Vol] 9.1 mg/dL Normal 8.4-10.4 [facility] Comment on above: Performed By: #### H CHASTITY AVILA MG3 ####[id number] [place] [address] Anion gap [Moles/Vol] 10 Normal [facility] Comment on above: Performed By: #### H SANGEETA AVILA3, MG3 ####[address] [place] [address] CO2 [Moles/Vol] 22 mmol/L Normal 22-30 [facility] Comment on above: Performed By: #### H SANGEETA AVILA3, MG3 ####[facility] [email or web address] [id number] [place] [address] Creatinine [Mass/Vol] 1.63 mg/dL High 0.52-1.25 [facility] Comment on above: Performed By: #### H SANGEETA AVILA3, MG3 ####[facility] [email or web address] [id number] [place] [address] GFR/1.73 sq M predicted among blacks MDRD (S/P/Bld) [Vol rate/Area] 37.9 mL/min/{1.73_m2} Normal >60 [facility] Comment on above: Performed By: #### H SANGEETA AVILA3, MG3 ####[facility] [email or web address] [id number] [place] [address] GFR/1.73 sq M predicted among non-blacks MDRD (S/P/Bld) [Vol rate/Area] 31.3 mL/min/{1.73_m2} Normal >60 [facility] Comment on above: Result Comment: Sour ce- MDRD equation with creatinine calibration to IDMS(NKDEP) eGFR not recommended for drug dose adjustment Performed By: #### H SANGEETA AVILA3, MG3 ####[facility] [email or web address] [id number] [place] [address] Glucose [Mass/Vol] 90 mg/dL Normal 70-100 [facility] Comment on above: Performed By: #### H SANGEETA AVILA3, MG3 ####[facility] [email or web address] [id number] [place] [address] Urea nitrogen [Mass/Vol] 32 mg/dL High 7-20 [facility] Comment on above: Performed By: #### H SANGEETA AVILA3, MG3 ####[facility] [email or web address] [id number] [place] [address] Chloride [Moles/Vol] 108 mmol/L High 98-107 [facility] Comment on above: Performed By: #### H SANGEETA AVILA3, MG3 ####[facility] [facility] [place] [address] Potassium [Moles/Vol] 5.7 mmol/L High 3.5-5.1 [facility] Comment on above: Performed By: #### H EMOG, BMP3, MG3 ####[facility] [place] [address] Sodium [Moles/Vol] 140 mmol/L Normal 135-145 [facility] Comment on above: Performed By: #### H EMOG, BMP3, MG3 ####[facility] [email or web address] [id number] [place] [address] Anion gap [Moles/Vol] 10 mmol/L [place] Calcium [Mass/Vol] 9.1 mg/dL 8.4 - 10. 4 mg/dL [place] Chloride [Moles/Vol] 108 mmol/L High 98 - 10 7 mmol/L [place] CO2 [Moles/Vol] 22 mmol/L 22 - 30 mmol/L [place] Creatinine [Mass/Vol] 1.63 mg/dL High 0.52 - 1.25 mg/dL [place] EGFR IF NonAfrican [place] 31.3 mL/min >60 [place] Comment on above: Source- MDRD equatio n with creatinine calibration to IDMS(NKDEP) eGFR not recommended for drug dose adjustment GFR/1.73 sq M predicted among blacks MDRD (S/P/Bld) [Vol rate/Area] 37.9 mL/min/{1.73_m2} >60 [place] Glucose [Mass/Vol] 90 mg/dL 70 - 100 mg/dL [place] Interpretation and review of laboratory results Abnormal [place] Potassium [Moles/Vol] 5.7 mmol/L High 3.5 - 5.1 mmol/L [place] Sodium [Moles/Vol] 140 mmol/L 135 - 145 mmol/L [place] Urea nitrogen [Mass/Vol] 32 mg/dL High 7 - 20 mg/dL [place] CBCon 03-01-2019 Erythrocyte distribution width (RBC) [Ratio] 13.5 % 11.5 - 14.5 % [place] Hematocrit (Bld) [Volume fraction] 34.2 % Low 35 - 47 % [place] Hemoglobin (Bld) [Mass/Vol] 11.1 g/dL Low 11.7 - 16 g/dL [place] Interpretation and review of laboratory results Abnormal [place] MCH (RBC) [Entitic mass] 30.1 pg 26 - 34 pg [place] MCHC (RBC) [Mass/Vol] 32.4 % 32 - 36 % [place] MCV (RBC) [Entitic vol] 92.9 fL 79 - 98 fL [place] Platelet mean volume (Bld) [Entitic vol] 9.8 fL 7.4 - 10.4 fL [place] Platelets (Bld) [#/Vol] 151 10*3/uL 140 - 440 10*3/uL [place] RBC (Bld) [#/Vol] 3.68 10*6/uL Low 3.8 - 5.2 10*6/uL [place] WBC (Bld) [#/Vol] 17.8 10*3/uL High 3.6 - 10.7 10*3/uL [place] CR Chest Portableon 03-01-20 19 CR Chest Portable Patient Name: CHRISTY FRANCIS Diagnostic Radiology Exam Date/Time 03/01/2019 07:10:13 EST Exam CR Chest Portable Ordering Physician GRANT TAYLOR Accession Number [id number] CPT4 Codes 32426 () Reason For Exam sob Report CLINICAL INFORMATION: Shortness of breath. Status post open heart surgery. CHEST X-RAY, PORTABLE, 0537 hours: An AP portable view is compared to the prior examination of previous day. There is no change in the mediastinal or left lower hemithorax chest tubes or right internal jugular [place] introducer sheath. There is stable slightly limited lung volumes. No pneumothorax or other acute process or interval change identified. 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: MISAEL : 1950 Requested By: GRANT TAYLOR A Order Number: [id number] Reading MD: Saray Yates Measurements Intervals [place] Rate: 97 P: 62 LA: 139 QRS: 28 QRSD: 67 T: 83 QT: 327 QTc: 416 Interpretive Statements Sinus rhythm Inferior infarct, acute Electronically Signed On 03-01-2019 9:20:04 EST by [facility] [place] Brian, [facility] Incoming Cardiology Results From [facility] - 03/01/2019 9:21 AM EST [facility] Test Date: 2019-03-01 Pat Name: Christy Francis Department: [facility] Room: [facility] Gender: F 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 Results may be 10%-15% lower than serum/plasma values. (CLIA ID [id number]) Performed By: #### B GLU #### [address] [address] Glucose [Mass/Vol] 357 mg/dL High 70-100 [facility] Comment on above: Result Comment: Test performed by glucose meter. Results may be 10%-15% lower than serum/plasma values. (CLIA ID [id number]) Performed By: #### B GLU #### [facility] [address] [place] [address] Glucose [Mass/Vol] 92 mg/dL Normal 70-100 [facility] Comment on above: Result Comment: Test performed by glucose meter. Results may be 10%-15% lower than serum/plasma values. (CLIA ID [id number]) Performed By: #### B GLU ####[facility] [address] [place] [address] Glucose [Mass/Vol] 85 mg/dL Normal 70-100 [facility] Comment on above: Result Comment: Test performed by glucose meter. Results may be 10%-15% lower than serum/plasma values. (CLIA ID [id number]) Performed By: #### B GLU #### [facility] [email or web address] [address] [place] [address] Glucose [Mass/Vol] 95 mg/dL Normal 70-100 [facility] Comment on above: Result Comment: Test performed by glucose meter. Results may be 10%-15% lower than serum/plasma values. (CLIA ID [id number]) Performed By: #### B GLU #### [email or web address] [address] [place] [address] Glucose [Mass/Vol] 111 mg/dL High 70-100 [facility] Comment on above: Result Comment: Test performed by glucose meter. Results may be 10%-15% lower than serum/plasma values. (CLIA ID [id number]) Performed By: #### B GLU #### [facility] [address] [place] [address] Glucose [Mass/Vol] 149 mg/dL High 70-100 [facility] Comment on above: Result Comment: Test performed by glucose meter. Results may be 10%-15% lower than serum/plasma values. (CLIA ID [id number]) Performed By: #### B GLU #### [email or web address] [address] [place] [address] Glucose [Mass/Vol] 153 mg/dL High 70-100 [facility] Comment on above: Result Comment: Test performed by glucose meter. Results may be 10%-15% lower than serum/plasma values. (CLIA ID [id number]) Performed By: #### B GLU #### [facility] [email or web address] [facility] [address] [place] [facility] [place] [address] Glucose [Mass/Vol] 165 mg/dL High 70-100 [facility] Comment on above: Result Comment: Test performed by glucose meter. Results may be 10%-15% lower than serum/plasma values. (CLIA ID [id number]) Performed By: #### B GLU #### [facility] [address] [place] [address] Glucose [Mass/Vol] 150 mg/dL High 70-100 [facility] Comment on above: Result Comment: Test performed by glucose meter. Results may be 10%-15% lower than serum/plasma values. (CLIA ID [id number]) Performed By: #### B GLU #### [facility] [email or web address] [facility] [address] [place] [address] Glucose [Mass/Vol] 172 mg/dL High 70-100 [facility] Comment on above: Result Comment: Test performed by glucose meter. Results may be 10%-15% lower than serum/plasma values. (CLIA ID [id number]) Performed By: #### B GLU #### [email or web address] [email or web address] [facility] [address] [place] [facility] [place] [address] Glucose [Mass/Vol] 112 mg/dL High 70-100 [facility] Comment on above: Result Comment: Test performed by glucose meter. Results may be 10%-15% lower than serum/plasma values. (CLIA ID [id number]) Performed By: #### B GLU ####[facility] [address] [place] [address] Glucose [Mass/Vol] 96 mg/dL Normal 70-100 [facility] Comment on above: Result Comment: Test performed by glucose meter. Results may be 10%-15% lower than serum/plasma values. (CLIA ID [id number]) Performed By: #### B GLU ####[facility] [email or web address] [id number] [place], [place] Glucose [Mass/Vol] 95 mg/dL Normal 70-100 [facility] Comment on above: Result Comment: Test performed by glucose meter. Results may be 10%-15% lower than serum/plasma values. (CLIA ID [id number]) Performed By: #### B GLU ####[facility] [email or web address] [id number] [place], [place] Glucose [Mass/Vol] 136 mg/dL High 70-100 [facility] Comment on above: Result Comment: Test performed by glucose meter. Results may be 10%-15% lower than serum/plasma values. (CLIA ID [id number]) Performed By: #### B GLU ####[address] [place], [place] Glucose [Mass/Vol] 162 mg/dL High 70-100 [facility] Comment on above: Result Comment: Test performed by glucose meter. Results may be 10%-15% lower than serum/plasma values. (CLIA ID [id number]) Performed By: #### B GLU ####[facility] [email or web address] [id number] [place], [place] Hematologyon 03-01-2019 ABO and Rh group Nom (Bld) 6200 [place], [place] Hemogramon 03-01-2019 Erythrocyte distribution width (RBC) [Ratio] 13.5 % Normal 11.5-14.5 [facility] Comment on above: Performed By: #### H EMOG, BMP3, MG3 ####[facility] [email or web address] [id number] [place], [place] Hematocrit (Bld) [Volume fraction] 34.2 % Low 35.0-47.0 [facility] Comment on above: Performed By: #### H EMOG, BMP3, MG3 ####[facility] [email or web address] [id number] [place], [place] Hemoglobin (Bld) [Mass/Vol] 11.1 g/dL Low 11.7-16.0 [facility] Comment on above: Performed By: #### H EMONicole, BMP3, MG3 ####[address] MCH (RBC) [Entitic mass] 30.1 pg Normal 26.0-34.0 [facility] Comment on above: Performed By: #### H EMONicole, BMP3, MG3 ####[address] MCHC (RBC) [Mass/Vol] 32.4 % Normal 32.0-36.0 [facility] Comment on above: Performed By: #### H EMONicole, BMP3, MG3 ####[address] MCV (RBC) [Entitic vol] 92.9 fL Normal 79.0-98.0 [facility] Comment on above: Performed By: #### H EMOG, BMP3, MG3 ####[address] Platelet mean volume (Bld) [Entitic vol] 9.8 fL Normal 7.4-10.4 [facility] Comment on above: Performed By: #### H EMOG, BMP3, MG3 ####[address] Platelets (Bld) [#/Vol] 151 10*3/uL Normal 140-440 [facility] Comment on above: Performed By: #### H EMOG, BMP3, MG3 ####[address] RBC (Bld) [#/Vol] 3.68 10*6/uL Low 3.80-5.20 [facility] Comment on above: Performed By: #### H EMOG, BMP3, MG3 ####[address] WBC (Bld) [#/Vol] 17.8 10*3/uL High 3.6-10.7 [facility] Comment on above: Performed By: #### H AUSTIN BMP3, MG3 ####[address] [place] [address] Leukodepleted Red Cellson Leukodepleted Red Cells Leukodepleted Red Cells: [id number] released 03/01/19 07:45 JMV Unit Blood Type: A Unit Blood Rh: POS Blood Product Code: AS1 Unit Number: [id number] Unit Status: released Barcoded Unit Number: =[id number] Barcoded Product Code: = Barcoded ABO/Rh: =%6200 Unit Expiration: [id number] Leukodepleted Red Cells: [id number] released 03/01/19 07:45 JMV Unit Blood Type: A Unit Blood Rh: POS Blood Product Code: AS1 Unit Number: [id number] Unit Status: released Barcoded Unit Number: =[id number] Barcoded Product Code: = Barcoded ABO/Rh: =%6200 Unit Expiration: [id number] Normal [facility] Comment on above: Performed By: #### H AUSTIN CMP3M #### [address] [address] Magnesiumon 03-01-2019 Magnesium [Mass/Vol] 2.1 mg/dL Normal 1.6-2.3 [facility] Comment on above: Performed By: #### H AUSTIN BMP3, MG3 ####[address] [place] [address] Magnesium [Mass/Vol] 2.1 mg/dL 1.6 - 2 .3 mg/dL [place], [place] Metabolic Panelon 03-01-2019 Sodium [Moles/Vol] [id number] [place], [place] Sodium [Moles/Vol] [id number] mmol/L [place] Sodium [Moles/Vol] released [place], [place] Otheron 03-01-2019 Test Performed by [address] [address] [facility] [place] Test Performed by [facility], [address] [place] [address] [facility] [place], [place] POCT Glucoseon 03-01-2019 Glucose [Mass/Vol] 334 mg/dL High 70 - 100 mg/dL [facility] [place] Comment on above: Test performed by gl ucose meter. Results may be 10%-15% lower than serum/plasma values. (CLIA ID [id number]) Interpretation and review of laboratory results Abnormal [facility] [place] Test Performed by [facility], [address] [place] [address] [facility] [place], [place] Glucose [Mass/Vol] 357 mg/dL High 70 - 100 mg/dL [facility] [place] Comment on above: Test performed by gl ucose meter. Results may be 10%-15% lower than serum/plasma values. (CLIA ID [id number]) Interpretation and review of laboratory results Abnormal [facility] [place] Test Performed by [facility], [address] [place] [address] [facility] [place] Glucose [Mass/Vol] 85 mg/dL 70 - 100 mg/dL [facility] [place] Comment on above: Test performed by gl ucose meter. Results may be 10%-15% lower than serum/plasma values. (CLIA ID [id number]) Test Performed by [facility], [address] [place] [address] [facility] [place] Glucose [Mass/Vol] 95 mg/dL 70 - 100 mg/dL [facility], [place] Comment on above: Test performed by gl ucose meter. Results may be 10%-15% lower than serum/plasma values. (CLIA ID [id number]) Test Performed by [facility], [address] [place] [address] [facility] Glucose [Mass/Vol] 111 mg/dL High 70 - 100 mg/dL [facility] [place] Comment on above: Test performed by gl ucose meter. Results may be 10%-15% lower than serum/plasma values. (CLIA ID [id number]) Interpretation and review of laboratory results Abnormal [facility] [place] Test Performed by [facility], [address] [place] [address] [facility] [place] Glucose [Mass/Vol] 149 mg/dL High 70 - 100 mg/dL [facility] [place] Comment on above: Test performed by gl ucose meter. Results may be 10%-15% lower than serum/plasma values. (CLIA ID [id number]) Interpretation and review of laboratory results Abnormal [facility] [place] Test Performed by [facility], [address] [place] [address] [facility] [place] Glucose [Mass/Vol] 153 mg/dL High 70 - 100 mg/dL [facility] [place] Comment on above: Test performed by gl ucose meter. Results may be 10%-15% lower than serum/plasma values. (CLIA ID [id number]) Interpretation and review of laboratory results Abnormal [facility] [place] Test Performed by [facility], [address] [place] [address] [facility] [place] Glucose [Mass/Vol] 165 mg/dL High 70 - 100 mg/dL [facility] [place] Comment on above: Test performed by gl ucose meter. Results may be 10%-15% lower than serum/plasma values. (CLIA ID [id number]) Interpretation and review of laboratory results Abnormal [facility] [place] Test Performed by [facility], [address] [place] [address] [facility] [place] Glucose [Mass/Vol] 150 mg/dL High 70 - 100 mg/dL [facility] [place] Comment on above: Test performed by gl ucose meter. Results may be 10%-15% lower than serum/plasma values. (CLIA ID [id number]) Interpretation and review of laboratory results Abnormal [facility] [place] Test Performed by [facility], [address] [place] [address] [facility] [place] Glucose [Mass/Vol] 172 mg/dL High 70 - 100 mg/dL [facility] [place] Comment on above: Test performed by gl ucose meter. Results may be 10%-15% lower than serum/plasma values. (CLIA ID [id number]) Interpretation and review of laboratory results Abnormal [facility], [place] Test Performed by [facility], [address] [place] [address] [place], [place] Glucose [Mass/Vol] 112 mg/dL High 70 - 100 mg/dL [place], [place] Comment on above: Test performed by gl ucose meter. Results may be 10%-15% lower than serum/plasma values. (CLIA ID [id number]) Interpretation and review of laboratory results Abnormal [facility], [place] Test Performed by [facility], [address] [place] [address] [place], [place] Glucose [Mass/Vol] 96 mg/dL 70 - 100 mg/dL [place], [place] Comment on above: Test performed by gl ucose meter. Results may be 10%-15% lower than serum/plasma values. (CLIA ID [id number]) Test Performed by [facility], [facility] [address], [place] [address] [place] [address] Glucose [Mass/Vol] 95 mg/dL 70 - 100 mg/dL [place], [place] Comment on above: Test performed by gl ucose meter. Results may be 10%-15% lower than serum/plasma values. (CLIA ID [id number]) Test Performed by [facility], [address] [place] [address] [place], [place] PREPARE RBC (CROSSMATCH), 2 Unitson 03-01-2019 Blood product unit ID (Dose) [#] [id number] [place], [place] Blood product unit ID (Dose) [#] [id number] [facility], [place], [place] Potassiumon 03-01-2019 Potassium [Moles/Vol] 5.4 mmol/L High 3.5-5.1 [facility] Comment on above: Performed By: #### B GLU #### [facility] [address] [place] [address] Interpretation and review of laboratory results Abnormal [place], [place] Potassium [Moles/Vol] 5.4 mmol/L High 3.5 - 5.1 mmol/L [place] Test Performed by [facility], [address] [place] [address] [place], [place] XR CHEST PORTABLEon 03-01-20 Patient Name: CHRISTY FRANCIS ---Diagnostic Radiology--- Exam Date/Time 03/01/2019 07:10:13 EST Exam CR Chest Portable Ordering Physician GRANT TAYLOR Accession Number [id number] CPT4 Codes 99735 () Reason For Exam sob Report CLINICAL INFORMATION: Shortness of breath. Status post open heart surgery. CHEST X-RAY, PORTABLE, 0537 hours: An AP portable view is compared to the prior examination of previous day. There is no change in the mediastinal or left lower hemithorax chest tubes or right internal jugular Pitcairn-Jose introducer sheath. There is stable slightly limited lung volumes. No pneumothorax or other acute process or interval change identified. Report Dictated on --- Final --- Dictated: 03/01/2019 7:23 am Dictating Physician: MD JIMENEZ HARLAN Signed Date and Time: 03/01/2019 7:25 am Signed by: MD JIMENEZ HARLAN Transcribed Date and Time: 03/01/2019 7:23 [place], [place] Kathie Torres Incoming Radiology Results From [facility] - 03/01/2019 7:26 AM EST Patient Name: CHRISTY FRANCIS ---Diagnostic Radiology--- Exam Date/Time 03/01/2019 07:10:13 EST Exam CR Chest Portable Ordering Physician GRANT TAYLOR Accession Number [id number] CPT4 Codes 37404 () Reason For Exam sob Report CLINICAL INFORMATION: Shortness of breath. Status post open heart surgery. CHEST X-RAY, PORTABLE, 0537 hours: An AP portable view is compared to the prior examination of previous day. There is no change in the mediastinal or left lower hemithorax chest tubes or right internal jugular Pitcairn-Jose introducer sheath. There is stable slightly limited lung volumes. No pneumothorax or other acute process or interval change identified. Report Dictated on --- Final --- Dictated: 03/01/2019 7:23 am Dictating Physician: MD JIMENEZ HARLAN Signed Date and Time: 03/01/2019 7:25 am Signed by: MD JIMENEZ HARLAN Transcribed Date and Time: 03/01/2019 7:23 [facility], [place] Basic Metabolic Panelon 11 Calcium [Mass/Vol] 9.3 mg/dL Normal 8.4-10.4 [facility] Comment on above: Performed By: #### B GLU #### [address] [place], [place] Anion gap [Moles/Vol] 14 Normal [facility] Comment on above: Performed By: #### B GLU #### [address] [place], [place] CO2 [Moles/Vol] 18 mmol/L Low 22-30 [facility] Comment on above: Performed By: #### B GLU #### [address] [place], [place] Creatinine [Mass/Vol] 1.35 mg/dL High 0.52-1.25 [facility] Comment on above: Performed By: #### B GLU #### [address] [place], [place] GFR/1.73 sq M predicted among blacks MDRD (S/P/Bld) [Vol rate/Area] 47.1 mL/min/{1.73_m2} Normal >60 [facility] Comment on above: Performed By: #### B GLU #### [address] [place], [place] GFR/1.73 sq M predicted among non-blacks MDRD (S/P/Bld) [Vol rate/Area] 38.9 mL/min/{1.73_m2} Normal >60 [facility] Comment on above: Result Comment: Sour ce- MDRD equation with creatinine calibration to IDMS(NKDEP) eGFR not recommended for drug dose adjustment Performed By: #### B GLU #### [address] [place] [address] Glucose [Mass/Vol] 127 mg/dL High 70-100 [facility] Comment on above: Performed By: #### B GLU #### [facility] [address] [place] [address] Urea nitrogen [Mass/Vol] 25 mg/dL High 7-20 [facility] Comment on above: Performed By: #### B GLU #### [facility] [address] [place] [address] Chloride [Moles/Vol] 109 mmol/L High 98-107 [facility] Comment on above: Performed By: #### B GLU #### [facility] [address] [place] [address] Potassium [Moles/Vol] 4.7 mmol/L Normal 3.5-5.1 [facility] Comment on above: Performed By: #### B GLU #### [facility] [address] [place], [place] Sodium [Moles/Vol] 141 mmol/L Normal 135-145 [facility] Comment on above: Performed By: #### B GLU #### [facility] [address] [place], [place] Anion gap [Moles/Vol] 14 mmol/L [place], [place] Calcium [Mass/Vol] 9.3 mg/dL 8.4 - 10. 4 mg/dL [place], [place] Chloride [Moles/Vol] 109 mmol/L High 98 - 10 7 mmol/L [place], [place] CO2 [Moles/Vol] 18 mmol/L Low 22 - 30 mmol/L [place] Creatinine [Mass/Vol] 1.35 mg/dL High 0.52 - 1.25 mg/dL [place], [place] EGFR IF NonAfrican [place]ian 38.9 mL/min >60 [place], [place] Comment on above: Source- MDRD equatio n with creatinine calibration to IDMS(NKDEP) eGFR not recommended for drug dose adjustment GFR/1.73 sq M predicted among blacks MDRD (S/P/Bld) [Vol rate/Area] 47.1 mL/min/{1.73_m2} >60 [place], [place] Glucose [Mass/Vol] 127 mg/dL High 70 - 100 mg/dL [place], [place] Potassium [Moles/Vol] 4.7 mmol/L 3.5 - 5.1 mmol/L [place], [place] Sodium [Moles/Vol] 141 mmol/L 135 - 145 mmol/L [place], [place] Urea nitrogen [Mass/Vol] 25 mg/dL High 7 - 20 mg/dL [place] Test Performed by [facility], [address], [place] Potassium [Moles/Vol] 7.0 mmol/L Critically high 3.5-5.1 [facility] Comment on above: Result Comment: repe ated Performed By: #### B GLU #### [address] [place] Calcium [Mass/Vol] 9.2 mg/dL Normal 8.4-10.4 [facility] Comment on above: Performed By: #### B GLU #### [address] [place], [place] Glucose [Mass/Vol] 115 mg/dL High 70-100 [facility] Comment on above: Performed By: #### B GLU #### [address] [place] Anion gap [Moles/Vol] 9 Normal [facility] Comment on above: Performed By: #### B GLU #### [address] [place] CO2 [Moles/Vol] 21 mmol/L Low 22-30 [facility] Comment on above: Performed By: #### B GLU #### [address] [place] Creatinine [Mass/Vol] 1.18 mg/dL Normal 0.52-1.25 [facility] Comment on above: Performed By: #### B GLU #### [address] [place], [place] GFR/1.73 sq M predicted among blacks MDRD (S/P/Bld) [Vol rate/Area] 55.0 mL/min/{1.73_m2} Normal >60 [facility] Comment on above: Performed By: #### B GLU #### [facility] [address] [place] [address] GFR/1.73 sq M predicted among non-blacks MDRD (S/P/Bld) [Vol rate/Area] 45.4 mL/min/{1.73_m2} Normal >60 [facility] Comment on above: Result Comment: Sour ce- MDRD equation with creatinine calibration to IDMS(NKDEP) eGFR not recommended for drug dose adjustment Performed By: #### B GLU #### [address] [place] [address] Urea nitrogen [Mass/Vol] 25 mg/dL High 7-20 [facility] Comment on above: Performed By: #### B GLU #### [address] [place] [address] Chloride [Moles/Vol] 110 mmol/L High 98-107 [facility] Comment on above: Performed By: #### B GLU #### [address] [place] [address] Sodium [Moles/Vol] 139 mmol/L Normal 135-145 [facility] Comment on above: Performed By: #### B GLU #### [address] [place] [address] Anion gap [Moles/Vol] 9 mmol/L [place], [place] Calcium [Mass/Vol] 9.2 mg/dL 8.4 - 10. 4 mg/dL [place] Chloride [Moles/Vol] 110 mmol/L High 98 - 10 7 mmol/L [place] CO2 [Moles/Vol] 21 mmol/L Low 22 - 30 mmol/L [place] Creatinine [Mass/Vol] 1.18 mg/dL 0.52 - 1.25 mg/dL [place], [place] EGFR IF NonAfrican [place]uneian 45.4 mL/min >60 [place] Comment on above: Source- MDRD equatio n with creatinine calibration to IDMS(NKDEP) eGFR not recommended for drug dose adjustment GFR/1.73 sq M predicted among blacks MDRD (S/P/Bld) [Vol rate/Area] 55.0 mL/min/{1.73_m2} >60 [place], [place] Glucose [Mass/Vol] 115 mg/dL High 70 - 100 mg/dL [place] Interpretation and review of laboratory results Abnormal [place], [place] Potassium [Moles/Vol] 7.0 mmol/L Critically high 3.5 - 5.1 mmol/L [place], [place] Comment on above: repeated Sodium [Moles/Vol] 139 mmol/L 135 - 145 mmol/L [place], [place] Urea nitrogen [Mass/Vol] 25 mg/dL High 7 - 20 mg/dL [place] Test Performed by [facility], [address] [place] [address] [place], [place] CBCon 02-28-2019 Erythrocyte distribution width (RBC) [Ratio] 13.1 % 11.5 - 14.5 % [place] Hematocrit (Bld) [Volume fraction] 34.8 % Low 35 - 47 % [place] Hemoglobin (Bld) [Mass/Vol] 11.4 g/dL Low 11.7 - 16 g/dL [place], [place] Interpretation and review of laboratory results Abnormal [place], [place] MCH (RBC) [Entitic mass] 30.3 pg 26 - 34 pg [place] MCHC (RBC) [Mass/Vol] 32.8 % 32 - 36 % [place] MCV (RBC) [Entitic vol] 92.3 fL 79 - 98 fL [place], [place] Platelet mean volume (Bld) [Entitic vol] 10.1 fL 7.4 - 10.4 fL [place] Platelets (Bld) [#/Vol] 160 10*3/uL 140 - 440 10*3/uL [place] RBC (Bld) [#/Vol] 3.78 10*6/uL Low 3.8 - 5.2 10*6/uL [place] WBC (Bld) [#/Vol] 18.8 10*3/uL High 3.6 - 10.7 10*3/uL [place] Test Performed by [facility], [address] [place] [address] [place], [place] CR Chest Portableon 02-29-20 19 CR Chest Portable Patient Name: CHRISTY FRANCIS Diagnostic Radiology Exam Date/Time 02/28/2019 07:24:40 EST Exam CR Chest Portable Ordering Physician GRANT TAYLOR Accession Number [id number] CPT4 Codes 57533 () Reason For Exam POST OPEN HEART Report CHEST - PORTABLE: CLINICAL INDICATION: Respiratory distress for follow up TECHNIQUE: Portable AP COMPARISON: One day ago FINDINGS: Life support devices: Right jugular venous sheath is noted. The Pitcairn-Jose catheter has been removed. 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 : 1950 Requested By: Order Number: [id number] Reading MD: Bryce Hayden Measurements Intervals [place] Rate: 95 P: 61 LA: 146 QRS: 11 QRSD: 85 T: 93 QT: 321 QTc: 404 Interpretive Statements Sinus rhythm Left atrial enlargement Nonspecific T abnormalities, lateral leads Electronically Signed On 02-28-2019 12:56:39 EST by Bryce Hayden [place], [place] Brian, [facility] Incoming Cardiology Results From Merge[facility]Ep[facility]any - 02/28/2019 12:57 PM EST [facility] Test Date: 2019-02-28 Pat Name: Christy Francis Department: 1AHLU Room: [facility] Gender: F 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100 [facility] Comment on above: Result Comment: Test performed by glucose meter. Results may be 10%-15% lower than serum/plasma values. (CLIA ID [id number]) Performed By: #### B GLU ####[facility] [address] [place] [address] Glucose [Mass/Vol] 196 mg/dL High [address] Comment on above: Result Comment: Test performed by glucose meter. Results may be 10%-15% lower than serum/plasma values. (CLIA ID [id number]) Performed By: #### B GLU #### [facility] [address] [place] [address] Glucose [Mass/Vol] 135 mg/dL High 70-100 [facility] Comment on above: Result Comment: Test performed by glucose meter. Results may be 10%-15% lower than serum/plasma values. (CLIA ID [id number]) Performed By: #### B GLU #### [facility] [address] [place] [address] Glucose [Mass/Vol] 121 mg/dL High [address] [facility] Comment on above: Result Comment: Test performed by glucose meter. Results may be 10%-15% lower than serum/plasma values. (CLIA ID [id number]) Performed By: #### B GLU #### [email or web address] [facility] [address] [place] [place] [address] Glucose [Mass/Vol] 76 mg/dL Normal 70-100 [facility] Comment on above: Result Comment: Test performed by glucose meter. Results may be 10%-15% lower than serum/plasma values. (CLIA ID [id number]) Performed By: #### B GLU #### [facility] [address] [place] [place] [address] Glucose [Mass/Vol] 76 mg/dL Normal 70-100 [facility] Comment on above: Result Comment: Test performed by glucose meter. Results may be 10%-15% lower than serum/plasma values. (CLIA ID [id number]) Performed By: #### B GLU #### [facility] [address] [place] [place] [address] Glucose [Mass/Vol] 90 mg/dL Normal 70-100 [facility] Comment on above: Result Comment: Test performed by glucose meter. Results may be 10%-15% lower than serum/plasma values. (CLIA ID [id number]) Performed By: #### B GLU #### [facility] [email or web address] [address] [place] [place] [address] Glucose [Mass/Vol] 97 mg/dL Normal 70-100 [facility] Comment on above: Result Comment: Test performed by glucose meter. Results may be 10%-15% lower than serum/plasma values. (CLIA ID [id number]) Performed By: #### B GLU #### [email or web address] [address] [place] [place] [address] Glucose [Mass/Vol] 123 mg/dL High 70-100 [facility] Comment on above: Result Comment: Test performed by glucose meter. Results may be 10%-15% lower than serum/plasma values. (CLIA ID [id number]) Performed By: #### B GLU #### [facility] [address] [place] [place] [address] Glucose [Mass/Vol] 133 mg/dL High 70-100 [facility] Comment on above: Result Comment: Test performed by glucose meter. Results may be 10%-15% lower than serum/plasma values. (CLIA ID [id number]) Performed By: #### B GLU #### [facility] [address] [place] [address] Glucose [Mass/Vol] 115 mg/dL High 70-100 [facility] Comment on above: Result Comment: Test performed by glucose meter. Results may be 10%-15% lower than serum/plasma values. (CLIA ID [id number]) Performed By: #### B GLU #### [facility] [address] [place] [address] Glucose [Mass/Vol] 138 mg/dL High 70-100 [place] Comment on above: Test performed by gl ucose meter. Results may be 10%-15% lower than serum/plasma values. (CLIA ID [id number]) Result Comment: Test performed by glucose meter. Results may be 10%-15% lower than serum/plasma values. (CLIA ID [id number]) Performed By: #### B GLU #### [facility] [address] [place] [address] Glucose [Mass/Vol] 135 mg/dL High 70-100 [facility] Comment on above: Result Comment: Test performed by glucose meter. Results may be 10%-15% lower than serum/plasma values. (CLIA ID [id number]) Performed By: #### B GLU #### [facility] [address] [place] [address] Glucose [Mass/Vol] 134 mg/dL High 70-100 [facility] Comment on above: Result Comment: Test performed by glucose meter. Results may be 10%-15% lower than serum/plasma values. (CLIA ID [id number]) Performed By: #### B GLU #### [facility] [address] [place] [address] Glucose [Mass/Vol] 143 mg/dL High 70-100 [facility] Comment on above: Result Comment: Test performed by glucose meter. Results may be 10%-15% lower than serum/plasma values. (CLIA ID [id number]) Performed By: #### B GLU #### [facility] [address] [place] [address] Glucose [Mass/Vol] 110 mg/dL High 70-100 [facility] Comment on above: Result Comment: Test performed by glucose meter. Results may be 10%-15% lower than serum/plasma values. (CLIA ID [id number]) Performed By: #### B GLU #### [facility] [address] [place] [address] Glucose [Mass/Vol] 155 mg/dL High 70-100 [facility], [place] Comment on above: Test performed by gl ucose meter. Results may be 10%-15% lower than serum/plasma values. (CLIA ID [id number]) Result Comment: Test performed by glucose meter. Results may be 10%-15% lower than serum/plasma values. (CLIA ID [id number]) Performed By: #### B GLU #### [facility] [address] [place] [address] Glucose [Mass/Vol] 104 mg/dL High 70-100 [facility] Comment on above: Result Comment: Test performed by glucose meter. Results may be 10%-15% lower than serum/plasma values. (CLIA ID [id number]) Performed By: #### B GLU #### [facility] [address] [place] [address] Glucose [Mass/Vol] 82 mg/dL Normal 70-100 [facility] Comment on above: Result Comment: Test performed by glucose meter. Results may be 10%-15% lower than serum/plasma values. (CLIA ID [id number]) Performed By: #### B GLU #### [facility] [address] [place] [address] Glucose [Mass/Vol] 92 mg/dL Normal 70-100 [facility], [place] Comment on above: Test performed by gl ucose meter. Results may be 10%-15% lower than serum/plasma values. (CLIA ID [id number]) Result Comment: Test performed by glucose meter. Results may be 10%-15% lower than serum/plasma values. (CLIA ID [id number]) Performed By: #### B GLU #### [email or web address] [address] [place] [address] Glucose [Mass/Vol] 110 mg/dL High 70-100 [facility] Comment on above: Result Comment: Test performed by glucose meter. Results may be 10%-15% lower than serum/plasma values. (CLIA ID [id number]) Performed By: #### B GLU #### [facility] [address] [place] [address] Glucose [Mass/Vol] 122 mg/dL High 70-100 [facility] Comment on above: Result Comment: Test performed by glucose meter. Results may be 10%-15% lower than serum/plasma values. (CLIA ID [id number]) Performed By: #### B GLU #### [facility] [address] [place] [address] Glucose [Mass/Vol] 152 mg/dL High 70-100 [facility] Comment on above: Result Comment: Test performed by glucose meter. Results may be 10%-15% lower than serum/plasma values. (CLIA ID [id number]) Performed By: #### B GLU #### [facility] [address] [place], [place] Glucose [Mass/Vol] 156 mg/dL High 70-100 [facility] Comment on above: Result Comment: Test performed by glucose meter. Results may be 10%-15% lower than serum/plasma values. (CLIA ID [id number]) Performed By: #### B GLU #### [email or web address] [address] [place] [address] Hemogramon 02-28-2019 Erythrocyte distribution width (RBC) [Ratio] 13.1 % Normal 11.5-14.5 [facility] Comment on above: Performed By: #### B GLU #### [facility] [address] [place] [address] Hematocrit (Bld) [Volume fraction] 34.8 % Low 35.0-47.0 [facility] Comment on above: Performed By: #### B GLU #### [facility] [address] [place], [place] Hemoglobin (Bld) [Mass/Vol] 11.4 g/dL Low 11.7-16.0 [facility] Comment on above: Performed By: #### B GLU #### [facility] [address] [place], [place] MCH (RBC) [Entitic mass] 30.3 pg Normal 26.0-34.0 [facility] Comment on above: Performed By: #### B GLU #### [facility] [address] [place], [place] MCHC (RBC) [Mass/Vol] 32.8 % Normal 32.0-36.0 [facility] Comment on above: Performed By: #### B GLU #### [facility] [address] [place], [place] MCV (RBC) [Entitic vol] 92.3 fL Normal 79.0-98.0 [facility] Comment on above: Performed By: #### B GLU #### [facility] [address] [address] [place], [place] Platelet mean volume (Bld) [Entitic vol] 10.1 fL Normal 7.4-10.4 [facility] Comment on above: Performed By: #### B GLU #### [facility] [address] [place], [place] Platelets (Bld) [#/Vol] 160 10*3/uL Normal 140-440 [facility] Comment on above: Performed By: #### B GLU #### [facility] [address] [address] [place], [place] RBC (Bld) [#/Vol] 3.78 10*6/uL Low 3.80-5.20 [facility] Comment on above: Performed By: #### B GLU #### [facility] [address] [address] [place], [place] WBC (Bld) [#/Vol] 18.8 10*3/uL High 3.6-10.7 [facility] Comment on above: Performed By: #### B GLU #### [facility] [address] [place] [address] Otheron 02-28-2019 Interpretation and review of laboratory results Abnormal [facility] [place] POCT Glucoseon 02-28-2019 Glucose [Mass/Vol] 136 mg/dL High 70 - 100 mg/dL [facility] [place] Comment on above: Test performed by gl ucose meter. Results may be 10%-15% lower than serum/plasma values. (CLIA ID [id number]) Interpretation and review of laboratory results Abnormal [facility] [place] Test Performed by [facility], [address] [place] [address] [facility] [place] Glucose [Mass/Vol] 162 mg/dL High 70 - 100 mg/dL [facility] [place] Comment on above: Test performed by gl ucose meter. Results may be 10%-15% lower than serum/plasma values. (CLIA ID [id number]) Interpretation and review of laboratory results Abnormal [facility] [place] Test Performed by [facility], [facility] [place] [place] [address] [facility] [place] Glucose [Mass/Vol] 214 mg/dL High 70 - 100 mg/dL [facility] [place] Comment on above: Test performed by gl ucose meter. Results may be 10%-15% lower than serum/plasma values. (CLIA ID [id number]) Interpretation and review of laboratory results Abnormal [facility] [place] Test Performed by [employer] [facility], [facility] [place] [facility] [place] [address] [facility] [place] Glucose [Mass/Vol] 196 mg/dL High 70 - 100 mg/dL [facility] [place] Comment on above: Test performed by gl ucose meter. Results may be 10%-15% lower than serum/plasma values. (CLIA ID [id number]) Interpretation and review of laboratory results Abnormal [facility] [place] Test Performed by [employer] [facility], [address] [place] [address] [facility] [place] Glucose [Mass/Vol] 135 mg/dL High 70 - 100 mg/dL [facility] [place] Comment on above: Test performed by gl ucose meter. Results may be 10%-15% lower than serum/plasma values. (CLIA ID [id number]) Interpretation and review of laboratory results Abnormal [facility] [place] Test Performed by [facility], [address] [place] [address] [facility], [place] Glucose [Mass/Vol] 121 mg/dL High 70 - 100 mg/dL [facility], [place] Comment on above: Test performed by gl ucose meter. Results may be 10%-15% lower than serum/plasma values. (CLIA ID [id number]) Interpretation and review of laboratory results Abnormal [facility] [place] Test Performed by [facility], [address] [place] [address] [facility] [place] Glucose [Mass/Vol] 76 mg/dL 70 - 100 mg/dL [facility], [place] Comment on above: Test performed by gl ucose meter. Results may be 10%-15% lower than serum/plasma values. (CLIA ID [id number]) Test Performed by [facility], [address] [place] [address] [facility], [place] Glucose [Mass/Vol] 76 mg/dL 70 - 100 mg/dL [place] Comment on above: Test performed by gl ucose meter. Results may be 10%-15% lower than serum/plasma values. (CLIA ID [id number]) Test Performed by [facility], [address] [place] [place] [address] [facility], [place] Glucose [Mass/Vol] 90 mg/dL 70 - 100 mg/dL [facility], [place] Comment on above: Test performed by gl ucose meter. Results may be 10%-15% lower than serum/plasma values. (CLIA ID [id number]) Test Performed by [facility], [address] [place] [address] [facility] [place] Glucose [Mass/Vol] 97 mg/dL 70 - 100 mg/dL [facility], [place] Comment on above: Test performed by gl ucose meter. Results may be 10%-15% lower than serum/plasma values. (CLIA ID [id number]) Test Performed by [facility], [address] [place] [address] [facility] [place] Glucose [Mass/Vol] 123 mg/dL High 70 - 100 mg/dL [facility] [place] Comment on above: Test performed by gl ucose meter. Results may be 10%-15% lower than serum/plasma values. (CLIA ID [id number]) Interpretation and review of laboratory results Abnormal [facility] [place] Test Performed by [facility], [address] [place] [address] [facility] [place] Glucose [Mass/Vol] 133 mg/dL High 70 - 100 mg/dL [facility] [place] Comment on above: Test performed by gl ucose meter. Results may be 10%-15% lower than serum/plasma values. (CLIA ID [id number]) Interpretation and review of laboratory results Abnormal [facility] [place] Test Performed by [facility], [address] [place] [address] [facility] [place] Glucose [Mass/Vol] 115 mg/dL High 70 - 100 mg/dL [facility] [place] Comment on above: Test performed by gl ucose meter. Results may be 10%-15% lower than serum/plasma values. (CLIA ID [id number]) Interpretation and review of laboratory results Abnormal [facility] [place] Test Performed by [facility], [address] [place] [address] [facility] [place] Glucose [Mass/Vol] 135 mg/dL High 70 - 100 mg/dL [facility] [place] Comment on above: Test performed by gl ucose meter. Results may be 10%-15% lower than serum/plasma values. (CLIA ID [id number]) Interpretation and review of laboratory results Abnormal [facility] [place] Test Performed by [facility], [address] [place] [address] [facility] [place] Glucose [Mass/Vol] 134 mg/dL High 70 - 100 mg/dL [facility] [place] Comment on above: Test performed by gl ucose meter. Results may be 10%-15% lower than serum/plasma values. (CLIA ID [id number]) Interpretation and review of laboratory results Abnormal [facility] [place] Test Performed by [facility], [address] [place] [address] [facility] [place] Glucose [Mass/Vol] 143 mg/dL High 70 - 100 mg/dL [facility] [place] Comment on above: Test performed by gl ucose meter. Results may be 10%-15% lower than serum/plasma values. (CLIA ID [id number]) Interpretation and review of laboratory results Abnormal [facility] [place] Test Performed by [facility], [address] [place] [address] [facility] [place] Glucose [Mass/Vol] 110 mg/dL High 70 - 100 mg/dL [facility] [place] Comment on above: Test performed by gl ucose meter. Results may be 10%-15% lower than serum/plasma values. (CLIA ID [id number]) Interpretation and review of laboratory results Abnormal [facility] [place] Test Performed by [employer] [facility], [address], [place] [address] [facility] [place] Glucose [Mass/Vol] 104 mg/dL High 70 - 100 mg/dL [facility] [place] Comment on above: Test performed by gl ucose meter. Results may be 10%-15% lower than serum/plasma values. (CLIA ID [id number]) Interpretation and review of laboratory results Abnormal [facility] [place] Test Performed by [employer] [facility], [address] [place] [address] [facility] [place] Glucose [Mass/Vol] 82 mg/dL 70 - 100 mg/dL [facility] [place] Comment on above: Test performed by gl ucose meter. Results may be 10%-15% lower than serum/plasma values. (CLIA ID [id number]) Test Performed by [employer] [facility], [address] [place] [address] [facility] [place] Test Performed by [facility], [address] [place] [address] [facility] [place] Glucose [Mass/Vol] 110 mg/dL High 70 - 100 mg/dL [facility] [place] Comment on above: Test performed by gl ucose meter. Results may be 10%-15% lower than serum/plasma values. (CLIA ID [id number]) Interpretation and review of laboratory results Abnormal [place] Test Performed by [facility], [address] [place] [address] [place] Glucose [Mass/Vol] 122 mg/dL High 70 - 100 mg/dL [place] Comment on above: Test performed by gl ucose meter. Results may be 10%-15% lower than serum/plasma values. (CLIA ID [id number]) Interpretation and review of laboratory results Abnormal [place] Test Performed by [facility], [facility] [place], [place] [address] [place] [address] Potassiumon 02-28-2019 Potassium [Moles/Vol] 6.7 mmol/L Critically high 3.5-5.1 [facility] Comment on above: Result Comment: Repe ated Performed By: #### B GLU #### [address] [place] [address] Interpretation and review of laboratory results Abnormal [place] Potassium [Moles/Vol] 6.7 mmol/L Critically high 3.5 - 5.1 mmol/L [place] Comment on above: Repeated Test Performed by [facility], [facility] [place] [address] [place] XR CHEST PORTABLEon 02-29-20 19 Patient Name: CHRISTY FRANCIS ---Diagnostic Radiology--- Exam Date/Time 02/28/2019 07:24:40 EST Exam CR Chest Portable Ordering Physician GRANT TAYLOR Accession Number [id number] CPT4 Codes 47613 () Reason For Exam POST OPEN HEART Report CHEST - PORTABLE: CLINICAL INDICATION: Respiratory distress for follow up TECHNIQUE: Portable AP COMPARISON: One day ago FINDINGS: Life support devices: Right jugular venous sheath is noted. The [place] catheter has been removed. Endotracheal tube and [...] JEFFREY Transcribed Date and Time: 02/28/2019 6:53 [facility] - 02/28/2019 7:25 AM EST Patient Name: CHRISTY FRANCIS ---Diagnostic Radiology--- Exam Date/Time 02/28/2019 07:24:40 EST Exam CR Chest Portable Ordering Physician GRANT TAYLOR Accession Number [id number] CPT4 Codes 70937 () Reason For Exam POST OPEN HEART Report CHEST - PORTABLE: CLINICAL INDICATION: Respiratory distress for follow up TECHNIQUE: Portable AP COMPARISON: One day ago FINDINGS: Life support devices: Right jugular venous sheath is noted. The [place] catheter has been removed. Endotracheal tube and [...] JEFFREY Transcribed Date and Time: 02/28/2019 6:53 GERS [facility], [place] Arterial Blood Gaseson 02-27 CO2 [Moles/Vol] 22.3 mmol/L Low 23.0-27.0 [facility] Comment on above: Performed By: #### H AUSTIN CMP3M #### [facility] [address] [place], [place] HCO3 (Bld) [Moles/Vol] 20.8 mmol/L Low 21.0-25.0 [facility] Comment on above: Performed By: #### H [place] CMP3M #### [address] [place], [place] Hemoglobin (Bld) [Mass/Vol] 10.4 g/dL Normal ScreenOnly [facility] Comment on above: Performed By: #### H [place]UST[place] CMP3M #### [address] [place], [place] Oxygen (Bld) [Partial pressure] 270.6 mm[Hg] High 80.0-100.0 [facility] Comment on above: Performed By: #### Pap[place] AVILA CMP3M #### [address] [place], [place] Oxygen saturation in Blood 98.8 % Normal 95.0-100.0 [facility] Comment on above: Performed By: #### Papito AVILA CMP3M #### [address] [place], [place] pCO2 46.0 mm[Hg] High 35.0-45.0 [facility] Comment on above: Performed By: #### Papito AVILA CMP3M #### [address] [place], [place] pH (Bld) 7.274 Low 7.350-7.450 [facility] Comment on above: Performed By: #### H AUST[place] CMP3M #### [address] [place], [place] Std Base Excess -5.8 mmol/L Low -3.0-3.0 [facility] Comment on above: Performed By: #### Papito AVILA CMP3M #### [address] [place], [place] FIO2 100% Normal [facility] Comment on above: Performed By: #### Papito AVILA CMP3M #### [facility] [address] [place], [place] Basic Metabolic Panelon 11- Calcium [Mass/Vol] 9.7 mg/dL Normal 8.4-10.4 [facility] Comment on above: Performed By: #### B GLU #### [address] [place], [place] Glucose [Mass/Vol] 164 mg/dL High 70-100 [facility] Comment on above: Performed By: #### B GLU #### [address] [place], [place] Anion gap [Moles/Vol] 13 Normal [facility] Comment on above: Performed By: #### B GLU #### [address] [place], [place] CO2 [Moles/Vol] 18 mmol/L Low 22-30 [facility] Comment on above: Performed By: #### B GLU #### [address] [place], [place] Creatinine [Mass/Vol] 1.13 mg/dL Normal 0.52-1.25 [facility] Comment on above: Performed By: #### B GLU #### [address] [place], [place] GFR/1.73 sq M predicted among blacks MDRD (S/P/Bld) [Vol rate/Area] 57.9 mL/min/{1.73_m2} Normal >60 [facility] Comment on above: Performed By: #### B GLU #### [address] [place], [place] GFR/1.73 sq M predicted among non-blacks MDRD (S/P/Bld) [Vol rate/Area] 47.7 mL/min/{1.73_m2} Normal >60 [facility] Comment on above: Result Comment: Sour ce- MDRD equation with creatinine calibration to IDMS(NKDEP) eGFR not recommended for drug dose adjustment Performed By: #### B GLU #### [address] [place], [place] Urea nitrogen [Mass/Vol] 24 mg/dL High 7-20 [facility] Comment on above: Performed By: #### B GLU #### [facility] [address] [place], [place] Chloride [Moles/Vol] 110 mmol/L High 98-107 [facility] [facility] Comment on above: Performed By: #### B GLU #### [facility] [address], [place] Potassium [Moles/Vol] 4.0 mmol/L Normal 3.5-5.1 [facility] Comment on above: Performed By: #### B GLU #### [facility] [address], [place] Sodium [Moles/Vol] 141 mmol/L Normal 135-145 [facility] Comment on above: Performed By: #### B GLU #### [facility] [address], [place] Anion gap [Moles/Vol] 13 mmol/L [place], [place] Calcium [Mass/Vol] 9.7 mg/dL 8.4 - 10. 4 mg/dL [place] Chloride [Moles/Vol] 110 mmol/L High 98 - 10 7 mmol/L [place] CO2 [Moles/Vol] 18 mmol/L Low 22 - 30 mmol/L [place] Creatinine [Mass/Vol] 1.13 mg/dL 0.52 - 1.25 mg/dL [place] EGFR IF NonAfrican [place] 47.7 mL/min >60 [place] Comment on above: Source- MDRD equatio n with creatinine calibration to IDMS(NKDEP) eGFR not recommended for drug dose adjustment GFR/1.73 sq M predicted among blacks MDRD (S/P/Bld) [Vol rate/Area] 57.9 mL/min/{1.73_m2} >60 [place] Glucose [Mass/Vol] 164 mg/dL High 70 - 100 mg/dL [place] Potassium [Moles/Vol] 4.0 mmol/L 3.5 - 5.1 mmol/L [facility], [place] Sodium [Moles/Vol] 141 mmol/L 135 - 145 mmol/L [facility], [place] Urea nitrogen [Mass/Vol] 24 mg/dL High 7 - 20 mg/dL [facility], [place] Calcium [Mass/Vol] 10.7 mg/dL High 8.4-10.4 [facility] Comment on above: Performed By: #### B GLU #### [facility] [address], [place] Glucose [Mass/Vol] 160 mg/dL High 70-100 [facility] Comment on above: Performed By: #### B GLU #### [place] [address], [place] Urea nitrogen [Mass/Vol] 25 mg/dL High 7-20 [facility] Comment on above: Performed By: #### B GLU #### [place] [address], [place] Anion gap [Moles/Vol] 12 Normal [facility] Comment on above: Performed By: #### B GLU #### [place] [address], [place] CO2 [Moles/Vol] 19 mmol/L Low 22-30 [facility] Comment on above: Performed By: #### B GLU #### [place] [address], [place] Creatinine [Mass/Vol] 1.17 mg/dL Normal 0.52-1.25 [facility] Comment on above: Performed By: #### B GLU #### [facility] [address], [place] GFR/1.73 sq M predicted among blacks MDRD (S/P/Bld) [Vol rate/Area] 55.6 mL/min/{1.73_m2} Normal >60 [facility] Comment on above: Performed By: #### B GLU #### [place] [address] [place] [address] GFR/1.73 sq M predicted among non-blacks MDRD (S/P/Bld) [Vol rate/Area] 45.9 mL/min/{1.73_m2} Normal >60 [facility] Comment on above: Result Comment: Sour ce- MDRD equation with creatinine calibration to IDMS(NKDEP) eGFR not recommended for drug dose adjustment Performed By: #### B GLU #### [facility] [address] [place] [address] Chloride [Moles/Vol] 110 mmol/L High 98-107 [facility] Comment on above: Performed By: #### B GLU #### [facility] [address], [place] Potassium [Moles/Vol] 4.2 mmol/L Normal 3.5-5.1 [facility] Comment on above: Performed By: #### B GLU #### [facility] [address], [place] Sodium [Moles/Vol] 140 mmol/L Normal 135-145 [facility] Comment on above: Performed By: #### B GLU #### [facility] [address], [place] Anion gap [Moles/Vol] 12 mmol/L [email or web address] [place] Calcium [Mass/Vol] 10.7 mg/dL High 8.4 - 10. 4 mg/dL [facility], [place] Chloride [Moles/Vol] 110 mmol/L High 98 - 10 7 mmol/L [facility], [place] CO2 [Moles/Vol] 19 mmol/L Low 22 - 30 mmol/L [place] Creatinine [Mass/Vol] 1.17 mg/dL 0.52 - 1.25 mg/dL [facility], [place] EGFR IF NonAfrican [place]ian 45.9 mL/min >60 [place] Comment on above: Source- MDRD equatio n with creatinine calibration to IDMS(NKDEP) eGFR not recommended for drug dose adjustment GFR/1.73 sq M predicted among blacks MDRD (S/P/Bld) [Vol rate/Area] 55.6 mL/min/{1.73_m2} >60 [email or web address] [place] Glucose [Mass/Vol] 160 mg/dL High 70 - 100 mg/dL [facility], [place] Potassium [Moles/Vol] 4.2 mmol/L 3.5 - 5.1 mmol/L [place] Sodium [Moles/Vol] 140 mmol/L 135 - 145 mmol/L [place] Urea nitrogen [Mass/Vol] 25 mg/dL High 7 - 20 mg/dL [place] Calcium [Mass/Vol] 9.6 mg/dL Normal 8.4-10.4 [facility] Comment on above: Performed By: #### Papito AVILA CMP3M #### [facility] [address], [place] Glucose [Mass/Vol] 233 mg/dL High 70-100 [facility] Comment on above: Performed By: #### Papito AVILA CMP3M #### [place] [address] [place], [place] Urea nitrogen [Mass/Vol] 32 mg/dL High 7-20 [facility] Comment on above: Performed By: #### Papito AVILA CMP3M #### [place] [address], [place] Anion gap [Moles/Vol] 12 Normal [facility] Comment on above: Performed By: #### Papito AVILA CMP3M #### [place] [address], [place] CO2 [Moles/Vol] 24 mmol/L Normal 22-30 [facility] Comment on above: Performed By: #### Papito AVILA CMP3M #### [place] [address], [place] Creatinine [Mass/Vol] 1.05 mg/dL Normal 0.52-1.25 [facility] Comment on above: Performed By: #### Papito AVILA CMP3M #### [place] [address], [place] GFR/1.73 sq M predicted among blacks MDRD (S/P/Bld) [Vol rate/Area] mL/min/{1.73_m2} Normal >60 [facility] Comment on above: Performed By: #### Papito AVILA CMP3M #### [facility] [address] [place] [address] GFR/1.73 sq M predicted among non-blacks MDRD (S/P/Bld) [Vol rate/Area] 52.0 mL/min/{1.73_m2} Normal >60 [facility] Comment on above: Result Comment: Sour ce- MDRD equation with creatinine calibration to IDMS(NKDEP) eGFR not recommended for drug dose adjustment Performed By: #### Papito AVILA CMP3M #### [facility] [address] [place] [address] Chloride [Moles/Vol] 103 mmol/L Normal 98-107 [facility] Comment on above: Performed By: #### Papito AVILA CMP3M #### [place] [address] [place] [address] Potassium [Moles/Vol] 4.7 mmol/L Normal 3.5-5.1 [facility] Comment on above: Performed By: #### Papito AVILA CMP3M #### [place] [address] [place] [address] Sodium [Moles/Vol] 138 mmol/L Normal 135-145 [facility] Comment on above: Performed By: #### Papito AVILA CMP3M #### [place] [address] [place] [address] Basic Metabolic Panel w/ Ref oneil to MGon 02-27-2019 Anion gap [Moles/Vol] 12 mmol/L [place] Calcium [Mass/Vol] 9.6 mg/dL 8.4 - 10. 4 mg/dL [place] Chloride [Moles/Vol] 103 mmol/L 98 - 10 7 mmol/L [place] CO2 [Moles/Vol] 24 mmol/L 22 - 30 mmol/L [place] Creatinine [Mass/Vol] 1.05 mg/dL 0.52 - 1.25 mg/dL [place] EGFR IF NonAfrican [place] 52.0 mL/min >60 [place] Comment on above: Source- MDRD equatio n with creatinine calibration to IDMS(NKDEP) eGFR not recommended for drug dose adjustment GFR/1.73 sq M predicted among blacks MDRD (S/P/Bld) [Vol rate/Area] mL/min/{1.73_m2} >60 mL/min [place] Glucose [Mass/Vol] 233 mg/dL High 70 - 100 mg/dL [place] Interpretation and review of laboratory results Abnormal [place] Potassium [Moles/Vol] 4.7 mmol/L 3.5 - 5.1 mmol/L [place] Sodium [Moles/Vol] 138 mmol/L 135 - 145 mmol/L [place] Urea nitrogen [Mass/Vol] 32 mg/dL High 7 - 20 mg/dL [place] Test Performed by [address] [address] [place] Blood Gas, Arterialon 2018 Base Excess, Arterial -5.8 mmol/L Low -3 - 3 mmol/L [place] HCO3, Arterial 20.8 mmol/L Low 21 - 25 mmol/L [place] Hemoglobin (Bld) [Mass/Vol] 10.4 g/dL [facility] [place], [place] Oxygen saturation in Blood 98.8 % 95 - 100 % [place] pCO2, Arterial 46.0 mm[Hg] High 35 - 45 mm[Hg] [place] pH, Arterial 7.274 Low [place] pO2, Arterial 270.6 mm[Hg] High 80 - 100 mm[Hg] [place] Sodium [Moles/Vol] 100% [place] TCO2, Arterial 22.3 mmol/L Low 23 - 27 mmol/L [place] CBCon 02-27-2019 Erythrocyte distribution width (RBC) [Ratio] 13.0 % 11.5 - 14.5 % [place] Hematocrit (Bld) [Volume fraction] 34.0 % Low 35 - 47 % [place] Hemoglobin (Bld) [Mass/Vol] 11.2 g/dL Low 11.7 - 16 g/dL [place] Interpretation and review of laboratory results Abnormal [place] MCH (RBC) [Entitic mass] 30.3 pg 26 - 34 pg [place] MCHC (RBC) [Mass/Vol] 32.9 % 32 - 36 % [place] MCV (RBC) [Entitic vol] 92.1 fL 79 - 98 fL [place] Platelet mean volume (Bld) [Entitic vol] 9.9 fL 7.4 - 10.4 fL [place] Platelets (Bld) [#/Vol] 143 10*3/uL 140 - 440 10*3/uL [place] RBC (Bld) [#/Vol] 3.69 10*6/uL Low 3.8 - 5.2 10*6/uL [place] WBC (Bld) [#/Vol] 16.7 10*3/uL High 3.6 - 10.7 10*3/uL [place] Test Performed by [facility], [address] [place] [address] [place] Erythrocyte distribution width (RBC) [Ratio] 12.9 % 11.5 - 14.5 % [place] Hematocrit (Bld) [Volume fraction] 29.0 % Low 35 - 47 % [place] Hemoglobin (Bld) [Mass/Vol] 9.8 g/dL Low 11.7 - 16 g/dL [place] Interpretation and review of laboratory results Abnormal [place] MCH (RBC) [Entitic mass] 31.1 pg 26 - 34 pg [place] MCHC (RBC) [Mass/Vol] 33.8 % 32 - 36 % [place] MCV (RBC) [Entitic vol] 91.9 fL 79 - 98 fL [place] Platelet mean volume (Bld) [Entitic vol] 9.7 fL 7.4 - 10.4 fL [place] Platelets (Bld) [#/Vol] 144 10*3/uL 140 - 440 10*3/uL [facility] [place] RBC (Bld) [#/Vol] 3.15 10*6/uL Low 3.8 - 5.2 10*6/uL [facility], [place] WBC (Bld) [#/Vol] 16.4 10*3/uL High 3.6 - 10.7 10*3/uL [facility], [place] Test Performed by [facility], [address] [place] [address] [facility], [place] CR Chest Portableon 02-28-20 19 CR Chest Portable Patient Name: CHRISTY FRANCIS Diagnostic Radiology Exam Date/Time 02/27/2019 16:56:34 EST Exam CR Chest Portable Ordering Physician GRANT TAYLOR Accession Number [id number] CPT4 Codes 36057 () Reason For Exam ETT placement Report CHEST PORTABLE: Indication: Inpatient; endotracheal tube placement Views: Portable frontal Comparison: 02/23/2019 Time: 16:42 on 02/27/2019 FINDINGS: Interval intubation with the endotracheal tube at the az, recommend repositioning and retraction. New right upper lung atelectasis/collapse. An enteric tube is in place with distal tip below the hemidiaphragm but excluded from [id number]. Interval placement of a right internal jugular [place]-Jose catheter with tip overlying the right main [...] Transcribed Date and Time: 02/27/2019 5:56 Normal [facility] CULTURE STAPH AUREUSon 02-27 CULTURE STAPH AUREUS CULTURE STAPH AUREU S --> Status: F No Staphylococcus aureus isolated. Normal [facility] Comment on above: Order Comment: Speci men Source Comment:Nasal Performed By: #### H MEGHNA AVILA3M #### [facility] [address] [place] [address] CULTURE, STAPH AUREUSon 02-17 CULTURE, STAPHYLOCOCCUS SCREEN No Staphylococcus aureus isolated. [email or web address] Test Performed by [facility], [address] [place] [address] Specimen Source Comment:Nasal [facility] [employer], [facility] Calcium, Ionizedon 9 Ionized Ca 5.50 mg/dL High 4.3 - 5.2 mg/dL [email or web address] [place] pH (Bld) 7.27 [pH] Low [facility] [place] Calcium,Ionizedon 02-27-2019 Ionized Ca,Measured 5.50 mg/dL High 4.30-5.20 [facility] Comment on above: Performed By: #### H MEGHNA AVILA3M #### [facility] [address] [place] [address] pH, Ionized Calcium 7.27 Low 7.31-7.46 [facility] Comment on above: Performed By: #### H MEGHNA AVILA3M #### [address] [address] Echo 2D/3D DONNELL w/wo Contrast on 02-27-2019 Echo 2D/3D DONNELL w/wo Contrast Patient Name: CHRISTY FRANCIS Ultrasound Exam Date/Time 02/27/2019 13:12:30 EST Exam Echo 2D/3D DONNELL w/wo Contrast Ordering Physician CITLALY CARMONA ELLEN E Accession Number [id number] Reason For Exam Surgery Report TRANSESOPHAGEAL ECHOCARDIOGRAM Intraoperative-Pre Pump Only PATIENT: Christy Francis STUDY DATE: 02/27/2019 : 1950 AGE: 69 HT/WT: 154.9 cm (61 80 kg in) (176 lb) GENDER: F BP: 98 / 57 LOCATION: [facility] PATIENT Inpatient [facility] STATUS: *ORDERING PHYSICIAN: * Ronda Carmona *READING PHYSICIAN: * Michi Dewitt, *ASSISTANT TRACK AND FIELD COACH: * Janice Trivedi MD [facility] INDICATIONS: CABG. CONCLUSIONS SUMMARY: 1. Left ventricle: [...] 8:47 am Signed by: MICHI DEWITT Normal [facility] Glucose,Bedsideon 02-27-2019 Glucose [Mass/Vol] 180 mg/dL High 70-100 [facility] Comment on above: Result Comment: Test performed by glucose meter. Results may be 10%-15% lower than serum/plasma values. (CLIA ID [id number]) Performed By: #### B GLU #### [address] [address] Glucose [Mass/Vol] 181 mg/dL High 70-100 [facility] Comment on above: Result Comment: Test performed by glucose meter. Results may be 10%-15% lower than serum/plasma values. (CLIA ID [id number]) Performed By: #### B GLU #### [facility] [email or web address] [facility] [address] [place] [address] Glucose [Mass/Vol] 179 mg/dL High [address] Comment on above: Result Comment: Test performed by glucose meter. Results may be 10%-15% lower than serum/plasma values. (CLIA ID [id number]) Performed By: #### B GLU #### [place] [address] [place] [address] Glucose [Mass/Vol] 148 mg/dL High 70-100 [facility] Comment on above: Result Comment: Test performed by glucose meter. Results may be 10%-15% lower than serum/plasma values. (CLIA ID [id number]) Performed By: #### B GLU #### [place] [address] [place] [address] Glucose [Mass/Vol] 139 mg/dL High [address] Comment on above: Result Comment: Test performed by glucose meter. Results may be 10%-15% lower than serum/plasma values. (CLIA ID [id number]) Performed By: #### B GLU #### [facility] [email or web address] [place] [address] [place] [address] Glucose [Mass/Vol] 233 mg/dL High [address] Comment on above: Result Comment: Test performed by glucose meter. Results may be 10%-15% lower than serum/plasma values. (CLIA ID [id number]) Performed By: #### H EMOG CMP3M #### [place] [address] [place] [address] Glucose [Mass/Vol] 299 mg/dL High [address] Comment on above: Result Comment: Test performed by glucose meter. Results may be 10%-15% lower than serum/plasma values. (CLIA ID [id number]) Performed By: #### H EMOG CMP3M #### [facility] [place] [address] [place] [address] Hemogramon 02-27-2019 Erythrocyte distribution width (RBC) [Ratio] 13.0 % Normal 11.5-14.5 [facility] Comment on above: Performed By: #### B GLU #### [facility] [address], [place] Hematocrit (Bld) [Volume fraction] 34.0 % Low 35.0-47.0 [facility] Comment on above: Performed By: #### B GLU #### [place] [address], [place] Hemoglobin (Bld) [Mass/Vol] 11.2 g/dL Low 11.7-16.0 [facility] Comment on above: Performed By: #### B GLU #### [place] [address], [place] MCH (RBC) [Entitic mass] 30.3 pg Normal 26.0-34.0 [facility] Comment on above: Performed By: #### B GLU #### [place] [address], [place] MCHC (RBC) [Mass/Vol] 32.9 % Normal 32.0-36.0 [facility] Comment on above: Performed By: #### B GLU #### [place] [address], [place] MCV (RBC) [Entitic vol] 92.1 fL Normal 79.0-98.0 [facility] Comment on above: Performed By: #### B GLU #### [place] [address], [place] Platelet mean volume (Bld) [Entitic vol] 9.9 fL Normal 7.4-10.4 [facility] Comment on above: Performed By: #### B GLU #### [place] [address], [place] Platelets (Bld) [#/Vol] 143 10*3/uL Normal 140-440 [facility] Comment on above: Performed By: #### B GLU #### [place] [address], [place] RBC (Bld) [#/Vol] 3.69 10*6/uL Low 3.80-5.20 [facility] Comment on above: Performed By: #### B GLU #### [address] WBC (Bld) [#/Vol] 16.7 10*3/uL High 3.6-10.7 [facility] Comment on above: Performed By: #### B GLU #### [place] [address] [place] Erythrocyte distribution width (RBC) [Ratio] 12.9 % Normal 11.5-14.5 [facility] Comment on above: Performed By: #### Papito AVILA CMP3M #### [address] Hematocrit (Bld) [Volume fraction] 29.0 % Low 35.0-47.0 [facility] Comment on above: Performed By: #### Papito AVILA CMP3M #### [place] [address] [place], [place] Hemoglobin (Bld) [Mass/Vol] 9.8 g/dL Low 11.7-16.0 [facility] Comment on above: Performed By: #### Papito AVILA CMP3M #### [address] MCH (RBC) [Entitic mass] 31.1 pg Normal 26.0-34.0 [facility] Comment on above: Performed By: #### Papito AVILA CMP3M #### [place] [address] [place] MCHC (RBC) [Mass/Vol] 33.8 % Normal 32.0-36.0 [facility] Comment on above: Performed By: #### Papito AVILA CMP3M #### [address] MCV (RBC) [Entitic vol] 91.9 fL Normal 79.0-98.0 [facility] Comment on above: Performed By: #### Papito AVILA CMP3M #### [place] [address] [place], [place] Platelet mean volume (Bld) [Entitic vol] 9.7 fL Normal 7.4-10.4 [facility] Comment on above: Performed By: #### H AUSTIN CMP3M #### [place] [address], [place] Platelets (Bld) [#/Vol] 144 10*3/uL Normal 140-440 [facility] Comment on above: Performed By: #### H AUSTIN CMP3M #### [place] [address] [place], [place] RBC (Bld) [#/Vol] 3.15 10*6/uL Low 3.80-5.20 [facility] Comment on above: Performed By: #### H AUSTIN CMP3M #### [place] [address] [place], [place] WBC (Bld) [#/Vol] 16.4 10*3/uL High 3.6-10.7 [facility] Comment on above: Performed By: #### Papito AVILA CMP3M #### [place] [address], [place] Magnesiumon 02-27-2019 Magnesium [Mass/Vol] 2.4 mg/dL High 1.6-2.3 [facility] Comment on above: Performed By: #### B GLU #### [place] [address] [place], [place] Magnesium [Mass/Vol] 2.4 mg/dL High 1.6 - 2 .3 mg/dL [place] Magnesium [Mass/Vol] 3.2 mg/dL High 1.6-2.3 [facility] Comment on above: Performed By: #### B GLU #### [place] [address] [place], [place] Magnesium [Mass/Vol] 3.2 mg/dL High 1.6 - 2 .3 mg/dL [place] Otheron 02-27-2019 Interpretation and review of laboratory results Abnormal [place] Test Performed by [place] [address] [place] [address] [facility] [place] Interpretation and review of laboratory results Abnormal [facility] [place] Test Performed by [facility], [address] [place] [address] [facility] [place] Interpretation and review of laboratory results Abnormal [facility] [place] Test Performed by [facility], [address] [place] [address] [facility] [place] POCT Glucoseon 02-27-2019 Glucose [Mass/Vol] 152 mg/dL High 70 - 100 mg/dL [facility] [place] Comment on above: Test performed by gl ucose meter. Results may be 10%-15% lower than serum/plasma values. (CLIA ID [id number]) Interpretation and review of laboratory results Abnormal [facility] [place] Test Performed by [facility], [address] [place] [address] [facility] [place] Glucose [Mass/Vol] 156 mg/dL High 70 - 100 mg/dL [facility] [place] Comment on above: Test performed by gl ucose meter. Results may be 10%-15% lower than serum/plasma values. (CLIA ID [id number]) Interpretation and review of laboratory results Abnormal [facility] [place] Test Performed by [facility], [address] [place] [address] [facility] [place] Glucose [Mass/Vol] 180 mg/dL High 70 - 100 mg/dL [facility] [place] Comment on above: Test performed by gl ucose meter. Results may be 10%-15% lower than serum/plasma values. (CLIA ID [id number]) Interpretation and review of laboratory results Abnormal [facility] [place] Test Performed by [facility], [address] [place] [address] [facility] [place] Glucose [Mass/Vol] 181 mg/dL High 70 - 100 mg/dL [facility] [place] Comment on above: Test performed by gl ucose meter. Results may be 10%-15% lower than serum/plasma values. (CLIA ID [id number]) Interpretation and review of laboratory results Abnormal [facility] [place] Test Performed by [facility], [address] [place] [address] [facility] [place] Glucose [Mass/Vol] 179 mg/dL High 70 - 100 mg/dL [facility] [place] Comment on above: Test performed by gl ucose meter. Results may be 10%-15% lower than serum/plasma values. (CLIA ID [id number]) Interpretation and review of laboratory results Abnormal [facility] [place] Test Performed by [facility], [address] [place] [address] [facility] [place] Glucose [Mass/Vol] 148 mg/dL High 70 - 100 mg/dL [facility] [place] Comment on above: Test performed by gl ucose meter. Results may be 10%-15% lower than serum/plasma values. (CLIA ID [id number]) Interpretation and review of laboratory results Abnormal [facility] [place] Test Performed by [facility], [address] [place] [address] [facility] [place] Glucose [Mass/Vol] 139 mg/dL High 70 - 100 mg/dL [facility] [place] Comment on above: Test performed by gl ucose meter. Results may be 10%-15% lower than serum/plasma values. (CLIA ID [id number]) Interpretation and review of laboratory results Abnormal [facility] [place] Test Performed by [facility], [address] [place] [address] [facility] [place] Glucose [Mass/Vol] 233 mg/dL High 70 - 100 mg/dL [facility] [place] Comment on above: Test performed by gl ucose meter. Results may be 10%-15% lower than serum/plasma values. (CLIA ID [id number]) Interpretation and review of laboratory results Abnormal [facility] [place] Test Performed by [facility], [address] [place] [address] [facility] [place] Glucose [Mass/Vol] 299 mg/dL High 70 - 100 mg/dL [facility] [place] Comment on above: Test performed by gl ucose meter. Results may be 10%-15% lower than serum/plasma values. (CLIA ID [id number]) Interpretation and review of laboratory results Abnormal [place] Test Performed by [facility], [address] [place] [address] [place] Phosphoruson 02-27-2019 Phosphate [Mass/Vol] 3.3 mg/dL Normal 2.5-4.5 [facility] Comment on above: Performed By: #### B GLU #### [address] [address] Phosphate [Mass/Vol] 3.3 mg/dL 2.5 - 4 .5 mg/dL [place] Protime AND APTTon 9 INR Coag (PPP) [Relative time] 1.3 High 0.9-1.1 [facility] Comment on above: Result Comment: Gael [...] Performed By: #### Papito AVILA CMP3M #### [address] [address] PT Coag (PPP) [Time] 13.5 s High 9.0-12.0 [facility] Comment on above: Result Comment: . Performed By: #### Papito AVILA CMP3M #### [address] [address] aPTT Coag (Bld) [Time] 21.2 s Normal 20.0-30.5 [facility] Comment on above: Result Comment: NOTE : The therapeutic time for Heparin anticoagulation, based on Xa activity inhibition, is an APTT of 46-80 seconds. Performed By: #### Papito AVILA CMP3M #### [place] [address] [place] [address] Protime/INR & PTTon 02-28-20 aPTT Coag (Bld) [Time] 21.2 s 20 - 30.5 s [place] Comment on above: NOTE: The therapeuti c time for Heparin anticoagulation, based on Xa activity inhibition, is an APTT of 46-80 seconds. INR Coag (PPP) [Relative time] 1.3 {INR} [place] Comment on above: Recommended Anticoag ulant [...] Interpretation and review of laboratory results Abnormal [place] PT Coag (PPP) [Time] 13.5 s High 9 - 12 s [place], [place] Comment on above: . Test Performed by [address] [address] [place], [place] XR CHEST PORTABLEon 02-28-20 Patient Name: CHRISTY FRANCIS ---Diagnostic Radiology--- Exam Date/Time 02/27/2019 16:56:34 EST Exam CR Chest Portable Ordering Physician GRANT TAYLOR Accession Number [id number] CPT4 Codes 36285 () Reason For Exam ETT placement Report CHEST PORTABLE: Indication: Inpatient; endotracheal tube placement Views: Portable frontal Comparison: 02/23/2019 Time: 16:42 on 02/27/2019 FINDINGS: Interval intubation with the endotracheal tube at the az, recommend repositioning and retraction. New right upper lung atelectasis/collapse. An enteric tube is in place with distal tip below the hemidiaphragm but excluded from [id number]. Interval placement of a right internal jugular [place]cairn-Jose catheter with tip overlying the right main [...] R Transcribed Date and Time: 02/27/2019 5:56 [facility], [place], [facility] Incoming [facility] - 02/27/2019 6:03 PM EST Patient Name: CHRITSY FRANCIS ---Diagnostic Radiology--- Exam Date/Time 02/27/2019 16:56:34 EST Exam CR Chest Portable Ordering Physician GRANT TAYLOR Accession Number [id number] CPT4 Codes 05262 () Reason For Exam ETT placement Report CHEST PORTABLE: Indication: Inpatient; endotracheal tube placement Views: Portable frontal Comparison: 02/23/2019 Time: 16:42 on 02/27/2019 FINDINGS: Interval intubation with the endotracheal tube at the az, recommend repositioning and retraction. New right upper lung atelectasis/collapse. An enteric tube is in place with distal tip below the hemidiaphragm but excluded from [id number]. Interval placement of a right internal jugular [place]n-Jose catheter with tip overlying the right main [...] R Transcribed Date and Time: 02/27/2019 5:56 [facility], [place] Basic Metabolic Panelon 02-17 Calcium [Mass/Vol] 9.2 mg/dL Normal 8.4-10.4 [facility] Comment on above: Performed By: #### Papito AVILA CMP3M #### [facility] [address], [place] Glucose [Mass/Vol] 317 mg/dL High 70-100 [facility] Comment on above: Performed By: #### H AUSTIN CMP3M #### [facility] [address], [place] Anion gap [Moles/Vol] 10 Normal [facility] Comment on above: Performed By: #### Papito AVILA CMP3M #### [facility] [address], [place] CO2 [Moles/Vol] 21 mmol/L Low 22-30 [facility] Comment on above: Performed By: #### H AUSTIN CMP3M #### [facility] [address], [place] Creatinine [Mass/Vol] 1.14 mg/dL Normal 0.52-1.25 [facility] Comment on above: Performed By: #### Papito AVILA CMP3M #### [facility] [address], [place] GFR/1.73 sq M predicted among blacks MDRD (S/P/Bld) [Vol rate/Area] 57.3 mL/min/{1.73_m2} Normal >60 [facility] Comment on above: Performed By: #### H AUSTIN CMP3M #### [facility] [address], [place] GFR/1.73 sq M predicted among non-blacks MDRD (S/P/Bld) [Vol rate/Area] 47.2 mL/min/{1.73_m2} Normal >60 [facility] Comment on above: Result Comment: Sour ce- MDRD equation with creatinine calibration to IDMS(NKDEP) eGFR not recommended for drug dose adjustment Performed By: #### Papito AVILA CMP3M #### [facility] [address] [place] [address] Urea nitrogen [Mass/Vol] 30 mg/dL High 7-20 [facility] Comment on above: Performed By: #### Papito AVILA CMP3M #### [facility] [address] [place] [address] Chloride [Moles/Vol] 105 mmol/L Normal 98-107 [facility] Comment on above: Performed By: #### Papito AVILA CMP3M #### [address] [place] [address] Potassium [Moles/Vol] 5.1 mmol/L Normal 3.5-5.1 [facility] Comment on above: Performed By: #### Papito AVILA CMP3M #### [facility] [address] [place] [address] Sodium [Moles/Vol] 136 mmol/L Normal 135-145 [facility] Comment on above: Performed By: #### Papito AVILA CMP3M #### [address] [place] [address] Basic Metabolic Panel w/ Ref oneil to MGon 02-26-2019 Anion gap [Moles/Vol] 10 mmol/L [place], [place] Calcium [Mass/Vol] 9.2 mg/dL 8.4 - 10. 4 mg/dL [place] Chloride [Moles/Vol] 105 mmol/L 98 - 10 7 mmol/L [place] CO2 [Moles/Vol] 21 mmol/L Low 22 - 30 mmol/L [place] Creatinine [Mass/Vol] 1.14 mg/dL 0.52 - 1.25 mg/dL [place] EGFR IF NonAfrican [place] 47.2 mL/min >60 [place] Comment on above: Source- MDRD equatio n with creatinine calibration to IDMS(NKDEP) eGFR not recommended for drug dose adjustment GFR/1.73 sq M predicted among blacks MDRD (S/P/Bld) [Vol rate/Area] 57.3 mL/min/{1.73_m2} >60 [place], [place] Glucose [Mass/Vol] 317 mg/dL High 70 - 100 mg/dL [place] Interpretation and review of laboratory results Abnormal [place] Potassium [Moles/Vol] 5.1 mmol/L 3.5 - 5.1 mmol/L [place] Sodium [Moles/Vol] 136 mmol/L 135 - 145 mmol/L [place] Urea nitrogen [Mass/Vol] 30 mg/dL High 7 - 20 mg/dL [place] Test Performed by [facility], [address] [place] [address] [place], [place] CBCon 02-26-2019 Erythrocyte distribution width (RBC) [Ratio] 13.1 % 11.5 - 14.5 % [place] Hematocrit (Bld) [Volume fraction] 44.0 % 35 - 47 % [place] Hemoglobin (Bld) [Mass/Vol] 14.9 g/dL 11.7 - 16 g/dL [place] MCH (RBC) [Entitic mass] 30.6 pg 26 - 34 pg [place] MCHC (RBC) [Mass/Vol] 33.9 % 32 - 36 % [place] MCV (RBC) [Entitic vol] 90.3 fL 79 - 98 fL [place], [place] Platelet mean volume (Bld) [Entitic vol] 9.9 fL 7.4 - 10.4 fL [place] Platelets (Bld) [#/Vol] 205 10*3/uL 140 - 440 10*3/uL [place] RBC (Bld) [#/Vol] 4.88 10*6/uL 3.8 - 5.2 10*6/uL [place] WBC (Bld) [#/Vol] 8.3 10*3/uL 3.6 - 10.7 10*3/uL [facility] [place], [place] Test Performed by [facility], [address] [facility] [place] [address] [facility] [place], [place] Complete Urinalysison 2018 Appearance (U) Clear Normal Clear [facility] Comment on above: Performed By: #### Papito AVILA CMP3M #### [address] Bacteria LM.HPF (Urine sed) [#/Area] Negative Normal Negative [facility] Comment on above: Performed By: #### Papito AVILA CMP3M #### [address] [address] [place], [place] Bilirubin,Urine Negative Normal Negative [facility] Comment on above: Performed By: #### Papito AVILA CMP3M #### [address] Cast, Hyaline Negative Normal Negative [facility] Comment on above: Performed By: #### Papito AVILA CMP3M #### [address] Color (U) Light-Yellow Normal Lt. Yellow [facility] Comment on above: Performed By: #### Papito AVILA CMP3M #### [address] Glucose Ql (U) 300 mg/dL Normal Normal (<70) [facility] Comment on above: Performed By: #### Papito AVILA CMP3M #### [address] [address] [place], [place] Ketone,Urine Negative Normal Negative [facility] Comment on above: Performed By: #### H AUSTIN CMP3M #### [address] Leukocytes,Urine 25 Michael/uL Normal Negative [facility] Comment on above: Performed By: #### Papito AVILA CMP3M #### [address] Mucous Threads Few Normal Negative [facility] Comment on above: Performed By: #### Papito AVILA CMP3M #### [address], [place] Nitrites,Urine Negative Normal Negative [facility] Comment on above: Performed By: #### Papito AVILA CMP3M #### [address], [place] Occult Blood,Urine 0.03 mg/dL Normal Negative [facility] Comment on above: Performed By: #### Papito AVILA CMP3M #### [address], [place] pH (U) 5.0 Normal 5.0-8.0 [facility] Comment on above: Performed By: #### H AUSTIN CMP3M #### [address] [address] [place], [place] Protein (U) [Mass/Vol] Negative Normal Negative [facility] Comment on above: Performed By: #### Papito AVILA CMP3M #### [address], [place] RBC LM.HPF (Urine sed) [#/Area] 0 - 2 Normal 0-2 [facility] Comment on above: Performed By: #### H AUSTIN CMP3M #### [address] [address] [place], [place] Specific [place],Urine 1.015 Normal 1.005-1.030 [facility] Comment on above: Performed By: #### H AUSTIN CMP3M #### [address] [address] [place], [place] Squamous Epithelial 0 - 2 Normal 3-5 [facility] Comment on above: Performed By: #### H AUSTIN CMP3M #### [address] Urobilinogen,Urine Normal Normal Normal (0-1) [facility] Comment on above: Performed By: #### H EMONicole CMP3M #### [address] [address] [place], [place] WBC LM.HPF (Urine sed) [#/Area] 0 - 2 Normal 0-5 [facility] Comment on above: Performed By: #### H MEGHNA AVILA3Adriana #### [facility] [address] [place] [address] EKG 12 Leadon 02-26-2019 [facility], [facility] Incoming Cardiology Results From Merge/Epiphany - 02/26/2019 9:23 AM EST [facility] Test Date: 2019-02-25 Pat Name: Christy Francis Department: 1A5 Room: [facility] Gender: F Aoc Director Intelligence Officer: MARIE : 1950 Requested By: Order Number: [id number] Reading MD: Keith Ngo Measurements Intervals Rhodes Rate: 78 P: 52 LA: 150 QRS: -10 QRSD: 86 T: 122 QT: 386 QTc: 440 Interpretive Statements Sinus rhythm LAE, consider biatrial enlargement LVH with secondary repolarization abnormality Electronically Signed On 02-26-2019 9:22:41 EST by Keith Ngo [facility] [email or web address] [facility] Test Date: 2019-02-25 Pat Name: Christy Francis Department: 1A5 Room: 1522 Gender: F Aoc Director Intelligence Officer: MARIE : 1950 Requested By: Order Number: [id number] Reading MD: Keith Ngo Measurements Intervals Rhodes Rate: 78 P: 52 LA: 150 QRS: -10 QRSD: 86 T: 122 QT: 386 QTc: 440 Interpretive Statements Sinus rhythm LAE, consider biatrial enlargement LVH with secondary repolarization abnormality Electronically Signed On 02-26-2019 9:22:41 EST by Keith MahanFirst Rate Medical Transportationchema [facility] [place] [place] Glucose,Bedsideon 02-26-2019 Glucose [Mass/Vol] 257 mg/dL High 70-100 [facility] [email or web address] [facility] Comment on above: Result Comment: Test performed by glucose meter. Results may be 10%-15% lower than serum/plasma values. (CLIA ID [id number]) Performed By: #### H ANGELY AVILA #### [facility] [address] [place] [address] Glucose [Mass/Vol] 270 mg/dL High 70-100 [facility] [email or web address] [facility] Comment on above: Result Comment: Test performed by glucose meter. Results may be 10%-15% lower than serum/plasma values. (CLIA ID [id number]) Performed By: #### H MEGHNA AVILA3M #### [address], [place] Glucose [Mass/Vol] 245 mg/dL High 70-100 [facility] Comment on above: Result Comment: Test performed by glucose meter. Results may be 10%-15% lower than serum/plasma values. (CLIA ID [id number]) Performed By: #### H MEGHNA AVILA3M #### [address], [place] Glucose [Mass/Vol] 316 mg/dL High 70-100 [facility] Comment on above: Result Comment: Test performed by glucose meter. Results may be 10%-15% lower than serum/plasma values. (CLIA ID [id number]) Performed By: #### H MEGHNA AVILA3M #### [address], [place] Hemogramon 02-26-2019 Erythrocyte distribution width (RBC) [Ratio] 13.1 % Normal 11.5-14.5 [facility] Comment on above: Performed By: #### B GLU #### [address], [place] Hematocrit (Bld) [Volume fraction] 44.0 % Normal 35.0-47.0 [facility] Comment on above: Performed By: #### B GLU #### [address], [place] Hemoglobin (Bld) [Mass/Vol] 14.9 g/dL Normal 11.7-16.0 [facility] Comment on above: Performed By: #### B GLU #### [address], [place] MCH (RBC) [Entitic mass] 30.6 pg Normal 26.0-34.0 [facility] Comment on above: Performed By: #### B GLU #### [address], [place] MCHC (RBC) [Mass/Vol] 33.9 % Normal 32.0-36.0 [facility] Comment on above: Performed By: #### B GLU #### [facility] [address], [place] MCV (RBC) [Entitic vol] 90.3 fL Normal 79.0-98.0 [facility] Comment on above: Performed By: #### B GLU #### [facility] [address], [place] Platelet mean volume (Bld) [Entitic vol] 9.9 fL Normal 7.4-10.4 [facility] Comment on above: Performed By: #### B GLU #### [address] [address], [place] Platelets (Bld) [#/Vol] 205 10*3/uL Normal 140-440 [facility] Comment on above: Performed By: #### B GLU #### [address] [address], [place] RBC (Bld) [#/Vol] 4.88 10*6/uL Normal 3.80-5.20 [facility] Comment on above: Performed By: #### B GLU #### [address], [place] WBC (Bld) [#/Vol] 8.3 10*3/uL Normal 3.6-10.7 [facility] Comment on above: Performed By: #### B GLU #### [address] [address], [place] POCT Glucoseon 02-26-2019 Glucose [Mass/Vol] 257 mg/dL High 70 - 100 mg/dL [place], [place] Comment on above: Test performed by ucose meter. Results may be 10%-15% lower than serum/plasma values. (CLIA ID [id number]) Interpretation and review of laboratory results Abnormal [facility], [place] Test Performed by [facility], [address] [place] [address] [facility], [place] Glucose [Mass/Vol] 270 mg/dL High 70 - 100 mg/dL [place], [place] Comment on above: Test performed by gl ucose meter. Results may be 10%-15% lower than serum/plasma values. (CLIA ID [id number]) Interpretation and review of laboratory results Abnormal [employer] [place], [place] Test Performed by [facility], [facility] [place] [address] [facility] [place], [place] Glucose [Mass/Vol] 245 mg/dL High 70 - 100 mg/dL [facility], [place] Comment on above: Test performed by gl ucose meter. Results may be 10%-15% lower than serum/plasma values. (CLIA ID [id number]) Interpretation and review of laboratory results Abnormal [facility] [place] Test Performed by [employer] [facility], [facility] [place] [address] [facility] [place], [place] Glucose [Mass/Vol] 316 mg/dL High 70 - 100 mg/dL [facility], [place] Comment on above: Test performed by gl ucose meter. Results may be 10%-15% lower than serum/plasma values. (CLIA ID [id number]) Interpretation and review of laboratory results Abnormal [employer] [place] Test Performed by [employer] [facility], [facility] [place] [address] [facility], [place] Prothrombin Timeon 02-26- 9 INR Coag (PPP) [Relative time] 1.0 Normal 0.9-1.1 [facility] Comment on above: Result Comment: Gael [...] Performed By: #### H AUSTIN, CMP3M #### [facility] [address] [place] [address] PT Coag (PPP) [Time] 10.9 s Normal 9.0-12.0 [facility] Comment on above: Result Comment: . Performed By: #### H AUSTIN CMP3M #### [address] [address] Protime-INRon 02-26-2019 INR Coag (PPP) [Relative time] 1.0 {INR} [place] Comment on above: Recommended Anticoag ulant [...] [Time] 10.9 s 9 - 12 s [place] Comment on above: . Test Performed by [facility], [address] [place] [address] TS GELon 02-26-2019 TS GEL ABO Group: A Rh, Gel: POS Antibody Screen Gel: NEG Normal [facility] Comment on above: Performed By: #### H AUSTIN [facility] #### [address] [address] TYPE AND SCREENon 02-26-2019 Sodium [Moles/Vol] Positive [place] Comment on above: Test Performed by [facility], [address] [place] [address] Sodium [Moles/Vol] A [place] Sodium [Moles/Vol] Negative [place] Comment on above: Test Performed by [facility], [address] [place] [address] Test Performed by [id number] [place] [address] Urinalysison 02-26-2019 Appearance (U) Clear Clear NA [place] Bacteria, UA Negative Negative /[HPF] [place] Bilirubin Urine Negative Negative mg/dL [place] Color (U) Light-Yellow Lt. Yellow NA [place] Glucose, Ur 300 mg/dL Normal (<70) [place] Hyaline Casts, UA Negative Negative /[LPF] [place] Ketones Ql (U) Negative Negative mg/dL [place] LEUKOCYTES, UA 25 Negative Michael/uL [place] Mucous Threads Few Negative /[LPF] [place] Nitrite, Urine Negative Negative NA [place] Occult Blood,Urine 0.03 mg/dL Negative [place] pH (U) 5.0 [pH] [place] Protein (U) [Mass/Vol] Negative Negative mg/dL [place] RBC (U) [#/Vol] 0-2 0 - 2 /[HPF] [place], [place] Specific [place], Urine 1.015 [place] Squam Epithel, UA 0-2 3 - 5 /[HPF] [place] Urobilinogen, Urine Normal Normal ( 0-1) mg/dL [place] WBC, UA 0-2 0 - 5 /[HPF] [place] Test Performed by [facility], [address] [place] [address] [place] VL ARTERIAL PVR LOWER WO EXE RCISEon 02-26-2019 [facility] Multilevel Lower Extremity Arterial Evaluation Report Ordering Physician: Timmy Basilio MD Security Checker: Yamilet Cortes RVT Interpreting Physician: Charlie Solano MD Location: [facility] Indications: PVD. Conclusions 1. [...] supine position. Images were obtained using a [employer] 2100 vascular ultrasound machine. Arterial pressure indices: [...] Charlie Solano MD 02/26/2019 09:13 [facility] [email or web address]- GABRIEL, Kathie Mathis Incoming Cardiology Results From Vera/Brooke - 02/26/2019 9:13 AM EST [facility] Multilevel Lower Extremity Arterial Evaluation Report Ordering Physician: Timmy Basilio MD Security Checker: Yamilet Cortes RVT Interpreting Physician: Charlie Solano MD Location: [facility] Indications: PVD. Conclusions 1. [...] supine position. Images were obtained using a [employer] 2100 vascular ultrasound machine. Arterial pressure indices: [...] signed by Charlie Solano MD 02/26/2019 09:13 [facility] VL DUP CAROTID BILATERALon 1 04-28-2018 [facility] Cardiology Results From Vera/Brooke - 02/26/2019 9:08 AM EST [facility] Carotid Duplex Report Ordering Physician: Minoo Encinas Security Checker: Yamilet Cortes RVT Interpreting Physician: Charlie Solano MD Location: [facility] Indications: Carotid stenosis. Conclusions [...] signed by Charlie Solano MD 02/26/2019 09:08 [facility] [email or web address]- [place], [facility] Carotid Duplex Report Ordering Physician: Minoo Encinasographer: Yamilet Cortes RVT Interpreting Physician: Charlie Solano MD Location: [facility] Indications: Carotid stenosis. Conclusions [...] signed by Charlie Solano MD 02/26/2019 09:08 [facility]- [place], [facility] Pre Op Vein Mappingon [facility] Bilateral LE Vein Mapping For Bypass Report Ordering Physician: Minoo Encinas Security Checker: Yamilet Cortes RVT Interpreting Physician: Charlie Solano MD Location: [facility] Indications: Pre-op bypass. Conclusions 1. The right great saphenous vein and left great saphenous veinappears patent. 2. Vein sizes as noted below. Study data: Bilateral lower extremity vein mapping. [employer] 2D imaging. Location: Vascular laboratory. Procedure: A vascular evaluation was performed with the patient in the supine position. Images were obtained using a [employer] E9 vascular ultrasound machine. Vein mapping: + [...] signed by Charlie Solano MD 02/26/2019 09:10 [facility], [facility] Incoming Cardiology Results From Merge/Epiphany - 02/26/2019 9:10 AM EST [facility] Bilateral LE Vein Mapping For Bypass Report Ordering Physician: Minoo Encinas Security Checker: Yamilet Cortes RVT Interpreting Physician: Charlie Solano MD Location: [facility] Indications: Pre-op bypass. Conclusions 1. The right great saphenous vein and left great saphenous veinappears patent. 2. Vein sizes as noted below. Study data: Bilateral lower extremity vein mapping. [employer] 2D imaging. Location: Vascular laboratory. Procedure: A vascular evaluation was performed with the patient in the supine position. Images were obtained using a [employer] E9 vascular ultrasound machine. Vein mapping: + [...] signed by Charlie Solano MD 02/26/2019 09:10 [facility]- [place], [place] Complete Urinalysison 2018 Appearance (U) Clear Normal Clear [facility] Comment on above: Performed By: #### B GLU #### [facility] [address] [place] [address] Bacteria LM.HPF (Urine sed) [#/Area] Few Normal Negative [email or web address] [facility] Comment on above: Performed By: #### B GLU #### [facility] [address], [place] Bilirubin,Urine Negative Normal Negative [facility] Comment on above: Performed By: #### B GLU #### [facility] [address], [place] Color (U) Colorless Normal Lt. Yellow [facility] Comment on above: Performed By: #### B GLU #### [facility] [address], [place] Glucose Ql (U) 300 mg/dL Normal Normal (<70) [facility] Comment on above: Performed By: #### B GLU #### [address] [address] [place], [place] Ketone,Urine Negative Normal Negative [facility] Comment on above: Performed By: #### B GLU #### [address] [address] [place], [place] Leukocytes,Urine 75 Michael/uL Normal Negative [facility] Comment on above: Performed By: #### B GLU #### [address] [place], [place] Nitrites,Urine Negative Normal Negative [facility] Comment on above: Performed By: #### B GLU #### [address] [place], [place] Occult Blood,Urine Negative Normal Negative [facility] Comment on above: Performed By: #### B GLU #### [address] [place], [place] pH (U) 5.0 Normal 5.0-8.0 [facility] Comment on above: Performed By: #### B GLU #### [address] [place], [place] Protein (U) [Mass/Vol] Negative Normal Negative [facility] Comment on above: Performed By: #### B GLU #### [address] [place], [place] Specific [place],Urine 1.009 Normal 1.005-1.030 [facility] Comment on above: Performed By: #### B GLU #### [facility] [address], [place] Squamous Epithelial 0 - 2 Normal 3-5 [facility] Comment on above: Performed By: #### B GLU #### [facility] [address] [place] [address] Urobilinogen,Urine Normal Normal Normal (0-1) [facility] Comment on above: Performed By: #### B GLU #### [facility] [address], [place] WBC LM.HPF (Urine sed) [#/Area] 6 - 10 Normal 0-5 [facility] Comment on above: Performed By: #### B GLU #### [facility] [address], [place] Glucose,Bedsideon 02-25-2019 Glucose [Mass/Vol] 280 mg/dL High 70-100 [facility] Comment on above: Result Comment: Test performed by glucose meter. Results may be 10%-15% lower than serum/plasma values. (CLIA ID [id number]) Performed By: #### B GLU #### [facility] [facility] [address], [place] Glucose [Mass/Vol] 266 mg/dL High 70-100 [facility] Comment on above: Result Comment: Test performed by glucose meter. Results may be 10%-15% lower than serum/plasma values. (CLIA ID [id number]) Performed By: #### B GLU #### [facility] [address], [place] Glucose [Mass/Vol] 219 mg/dL High 70-100 [facility] Comment on above: Result Comment: Test performed by glucose meter. Results may be 10%-15% lower than serum/plasma values. (CLIA ID [id number]) Performed By: #### B GLU #### [facility] [address] [place] [address] Glucose [Mass/Vol] 338 mg/dL High 70-100 [facility] Comment on above: Result Comment: Test performed by glucose meter. Results may be 10%-15% lower than serum/plasma values. (CLIA ID [id number]) Performed By: #### B GLU #### [facility] [address] [place] [address] Glucose [Mass/Vol] 272 mg/dL High 70-100 [facility] Comment on above: Result Comment: Test performed by glucose meter. Results may be 10%-15% lower than serum/plasma values. (CLIA ID [id number]) Performed By: #### B GLU #### [facility] [address] [place] [address] Hemoglobin A1Con 02-25-2019 HbA1c (Bld) [Mass fraction] 249 mg/dL Normal [facility] Comment on above: Performed By: #### B GLU #### [address] [address] [place] [address] HbA1c (Bld) [Mass fraction] 10.3 % High 4.0-5.7 [facility] Comment on above: Result Comment: --Hg bA1C levels may not be accurate in patients who have renal disease, received recent blood transfusions, are anemic, or who have dyshemoglobinemia. Performed By: #### B GLU #### [facility] [address] [address] [place] [address] Hemoglobin A1con 02-25-2019 eAG 249 mg/dL [facility] HbA1c (Bld) [Mass fraction] 10.3 % High 4 - 5.7 % [facility] Comment on above: --HgbA1C levels may not be accurate in patients who have renal disease, received recent blood transfusions, are anemic, or who have dyshemoglobinemia. Interpretation and review of laboratory results Abnormal [employer] Test Performed by [employer], [facility] [place] [address] [facility] POCT Glucoseon 02-25-2019 Glucose [Mass/Vol] 280 mg/dL High 70 - 100 mg/dL [facility] Comment on above: Test performed by gl ucose meter. Results may be 10%-15% lower than serum/plasma values. (CLIA ID [id number]) Interpretation and review of laboratory results Abnormal [facility] [place] Test Performed by [facility], [facility] [place] [address] [facility] [place] Glucose [Mass/Vol] 266 mg/dL High 70 - 100 mg/dL [facility] [place] Comment on above: Test performed by gl ucose meter. Results may be 10%-15% lower than serum/plasma values. (CLIA ID [id number]) Interpretation and review of laboratory results Abnormal [facility] Test Performed by [facility], [facility] [place] [address] [facility] [place], [place] Glucose [Mass/Vol] 219 mg/dL High 70 - 100 mg/dL [facility] [place] Comment on above: Test performed by gl ucose meter. Results may be 10%-15% lower than serum/plasma values. (CLIA ID [id number]) Interpretation and review of laboratory results Abnormal [facility] [employer]- [place] Test Performed by [facility], [facility] [place] [address] [facility], [place] Glucose [Mass/Vol] 338 mg/dL High 70 - 100 mg/dL [facility] [place] Comment on above: Test performed by gl ucose meter. Results may be 10%-15% lower than serum/plasma values. (CLIA ID [id number]) Interpretation and review of laboratory results Abnormal [facility] Test Performed by [facility], [facility] [place] [address] [facility], [place] Urinalysison 02-25-2019 Appearance (U) Clear Clear NA [facility] [employer] Bacteria, UA Few Negative /[HPF] [facility] [place] Bilirubin Urine Negative Negative mg/dL [facility] [place] Color (U) Colorless Lt. Yellow NA [facility] [employer] Glucose, Ur 300 mg/dL Normal (<70) [facility] [place] Ketones Ql (U) Negative Negative mg/dL [facility] [place] LEUKOCYTES, UA 75 Negative Michael/uL [facility], [place] Nitrite, Urine Negative Negative NA [facility] [place] Occult Blood,Urine Negative Negative mg/dL [facility] [place] pH (U) 5.0 [pH] [place], [place] Protein (U) [Mass/Vol] Negative Negative mg/dL [place] Specific [place], Urine 1.009 [place] Squam Epithel, UA 0-2 3 - 5 /[HPF] [place] Urobilinogen, Urine Normal Normal ( 0-1) mg/dL [place] WBC, UA 6-10 0 - 5 /[HPF] [place] Test Performed by [address] [address] [place] VL Carotid Duplex Ultrasound Completeon 02-25-2019 VL Carotid Duplex Ultrasound Complete Patient Name: CHRISTY FRANCIS Ultrasound Exam Date/Time 02/25/2019 13:56:07 EST Exam VL Carotid Duplex Ultrasound Complete Ordering Physician RICHY ENCINAS, MINOO Rivera Accession Number [id number] CPT4 Codes 95807 () Reason For Exam preop CABG Report [facility] Carotid Duplex Report Ordering Physician: Minoo Encinas Security Checker: Yamilet Cortes RVT Interpreting Physician: Charlie Solano MD Location: [facility] Indications: Carotid stenosis. Conclusions [...] 02/26/2019 9:08 am Signed by: CHARLIE SOLANO [facility] VL PVR Arterial Doppler Lwr w/o Exerciseon 02-25-2019 VL PVR Arterial Doppler Lwr w/o Exercise Patient Name: CHRISTY FRANCIS Ultrasound Exam Date/Time 02/25/2019 13:56:47 EST Exam VL PVR Arterial Doppler Lwr w/o Exercise Ordering Physician MD CIRILO, TIMMY Accession Number [id number] CPT4 Codes 47774 () Reason For Exam PVD preop CABG Report [facility] Multilevel Lower Extremity Arterial Evaluation Report Ordering Physician: Timmy Basilio MD Security Checker: Yamilet Cortes Santos Interpreting Physician: Charlie Solano MD Location: [facility] Indications: PVD. Conclusions 1. [...] supine position. Images were obtained using a [employer] 2100 vascular ultrasound machine. Arterial pressure indices: [...] 02/26/2019 9:13 am Signed by: CHARLIE SOLANO [facility] VL Vein Map for Preop Bypass [place] 02-25-2019 VL Vein Map for Preop Bypass Lower Ext Patient Name: CHRISTY FRANCIS Ultrasound Exam Date/Time 02/25/2019 13:56:27 EST Exam VL Vein Map for Preop Bypass Lower Ext Ordering Physician RICHY ENCINAS, MINOO Rivera Accession Number [id number] CPT4 Codes 04810 () Reason For Exam pre op CABG please ted legs Report [facility] Bilateral LE Vein Mapping For Bypass Report Ordering Physician: Minoo Encinas Security Checker: Yamilet Cortes RVT Interpreting Physician: Charlie Solano MD Location: [facility] Indications: Pre-op bypass. Conclusions 1. The right great saphenous vein and left great saphenous veinappears patent. 2. Vein sizes as noted below. Study data: Bilateral lower extremity vein mapping. [employer] 2D imaging. Location: Vascular laboratory. Procedure: A vascular evaluation was performed with the patient in the supine position. Images were obtained using a [employer] E9 vascular ultrasound machine. Vein mapping: + [...] 9:10 am Signed by: CHARLIE SOLANO Normal [facility] Glucose,Bedsideon 02-24-2019 Glucose [Mass/Vol] 285 mg/dL High 70-100 [facility] Comment on above: Result Comment: Test performed by glucose meter. Results may be 10%-15% lower than serum/plasma values. (CLIA ID [id number]) Performed By: #### B GLU #### [facility] [address] [place] [address] Glucose [Mass/Vol] 290 mg/dL High 70-100 [facility] Comment on above: Result Comment: Test performed by glucose meter. Results may be 10%-15% lower than serum/plasma values. (CLIA ID [id number]) Performed By: #### B GLU #### [facility] [address] [place] [address] Glucose [Mass/Vol] 302 mg/dL High 70-100 [facility] Comment on above: Result Comment: Test performed by glucose meter. Results may be 10%-15% lower than serum/plasma values. (CLIA ID [id number]) Performed By: #### B GLU #### [facility] [address] [place] [address] POCT Glucoseon 02-24-2019 Glucose [Mass/Vol] 272 mg/dL High 70 - 100 mg/dL [facility] [place] Comment on above: Test performed by gl ucose meter. Results may be 10%-15% lower than serum/plasma values. (CLIA ID [id number]) Interpretation and review of laboratory results Abnormal [facility] Test Performed by [facility], [facility] [place] [address] [facility] [place] Glucose [Mass/Vol] 285 mg/dL High 70 - 100 mg/dL [facility] [place] Comment on above: Test performed by gl ucose meter. Results may be 10%-15% lower than serum/plasma values. (CLIA ID [id number]) Interpretation and review of laboratory results Abnormal [facility] [place] Test Performed by [facility], [address] [place] [address] [facility] [place] Glucose [Mass/Vol] 290 mg/dL High 70 - 100 mg/dL [facility] [place] Comment on above: Test performed by gl ucose meter. Results may be 10%-15% lower than serum/plasma values. (CLIA ID [id number]) Interpretation and review of laboratory results Abnormal [facility] [place] Test Performed by [facility] [facility], [address] [place] [address] [facility]- [place] Glucose [Mass/Vol] 302 mg/dL High 70 - 100 mg/dL [facility] [place] Comment on above: Test performed by gl ucose meter. Results may be 10%-15% lower than serum/plasma values. (CLIA ID [id number]) Interpretation and review of laboratory results Abnormal [place] Test Performed by [facility], [address] [place] [address] [place], [place] Bedside spirometryon [address] [place] [address] Cardiology Results From [employer] - 02/28/2019 12:48 PM EST Name: CHRISTY FRANCIS PatientID: [id number] Gender: Female Birthdate: 1950 Study Date: 02/23/2019 3:15:42 P Age: 69 Race: Other Race Height: 62.0 in, 157.5 cm Weight: 176.0 lbs, 80.0 kg Smoke Status: Smokes Pack Years: 26.Tbco Prod: Cigarettes Ordering Physician: [id number] Interpreting Physician: [id number] Aoc Director Intelligence Officer: Jennifer Testing Location: [facility] Diagnosis: CAD, HFrEF, pre-surgical values Spirometry Units Pred PreDrug Pre%Pred Post Post%Pred %Change FVC L,btps 2.79 1.80 64. FEV1 L,btps 2.11 1.33 63. FEV1/FVC (%) % 76. 74. 97. RUC92-03% L/s 1.83 1.01 55. FEFmax L/s 5.42 [...] /MIP cmH2O -68.81 PEmax /MEP cmH2O 90.11 RANGE EXAMINER NOTES Calibration check passed with acceptable system performance. Spirometry best effort, met acceptability and repeatability guidelines. Pt sitting upright in bedside chair with both feet on ground. [address] [place] Tests to perform: RT17 - BEDSIDE [...] Possible moderate restriction #2. Small airways obstruction [place], [place] Name: CHRISTY FRANCIS PatientID: [id number] Gender: Female Birthdate: 1950 Study Date: 02/23/2019 3:15:42 P Age: 69 Race: Other Race Height: 62.0 in, 157.5 cm Weight: 176.0 lbs, 80.0 kg Smoke Status: Smokes Pack Years: 26.Tbco Prod: Cigarettes Ordering Physician: [id number] Interpreting Physician: [id number] Aoc Director Intelligence Officer: Jennifer Testing Location: [facility] Diagnosis: CAD, HFrEF, pre-surgical values Spirometry Units Pred PreDrug Pre%Pred Post Post%Pred %Change FVC L,btps 2.79 1.80 64. FEV1 L,btps 2.11 1.33 63. FEV1/FVC (%) % 76. 74. 97. WBQ99-12% L/s 1.83 1.01 55. FEFmax L/s 5.42 [...] /MIP cmH2O -68.81 PEmax /MEP cmH2O 90.11 RANGE EXAMINER NOTES Calibration check passed with acceptable system performance. Spirometry best effort, met acceptability and repeatability guidelines. Pt sitting upright in bedside chair with both feet on ground. [address]- [place] Tests to perform: RT17 - BEDSIDE [...] Possible moderate restriction #2. Small airways obstruction [place], [place] CBCon 02-23-2019 Erythrocyte distribution width (RBC) [Ratio] 13.1 % 11.5 - 14.5 % [place] Hematocrit (Bld) [Volume fraction] 44.3 % 35 - 47 % [place] Hemoglobin (Bld) [Mass/Vol] 15.1 g/dL 11.7 - 16 g/dL [place] MCH (RBC) [Entitic mass] 30.8 pg 26 - 34 pg [place] MCHC (RBC) [Mass/Vol] 34.0 % 32 - 36 % [place], [place] MCV (RBC) [Entitic vol] 90.3 fL 79 - 98 fL [place], [place] Platelet mean volume (Bld) [Entitic vol] 9.4 fL 7.4 - 10.4 fL [place], [place] Platelets (Bld) [#/Vol] 212 10*3/uL 140 - 440 10*3/uL [place] RBC (Bld) [#/Vol] 4.90 10*6/uL 3.8 - 5.2 10*6/uL [place] WBC (Bld) [#/Vol] 8.6 10*3/uL 3.6 - 10.7 10*3/uL [place] Test Performed by [facility], [address] [place] [id number] [place] [address] CR Chest Portableon 02-24-20 19 CR Chest Portable Patient Name: CHRISTY FRANCIS Diagnostic Radiology Exam Date/Time 02/23/2019 17:30:22 EST Exam CR Chest Portable Ordering Physician RICHY ENCINAS, MINOO Rivera Accession Number [id number] CPT4 Codes 18055 () Reason For Exam preop CABG Report [...] Transcribed Date and Time: 02/23/2019 9:18 Normal [facility] Comp Panel with Mg Reflexon 02-23-2019 Calcium [Mass/Vol] 9.1 mg/dL Normal 8.4-10.4 [facility] Comment on above: Performed By: #### H MEGHNA AVILA3M #### [address] [address] [place], [place] ALP [Catalytic activity/Vol] 57 U/L Normal 38-126 [facility] Comment on above: Performed By: #### H AUSTIN CMP3M #### [facility] [address], [place] ALT [Catalytic activity/Vol] 53 U/L Normal 13-69 [facility] Comment on above: Performed By: #### H AUSTIN CMP3M #### [facility] [address], [place] Anion gap [Moles/Vol] 8 Normal [facility] Comment on above: Performed By: #### H AUSTIN CMP3M #### [facility] [address], [place] AST [Catalytic activity/Vol] 49 U/L High 15-46 [facility] Comment on above: Performed By: #### H AUSTIN CMP3M #### [facility] [address], [place] Bilirubin [Mass/Vol] 0.5 mg/dL Normal 0.2-1.3 [facility] Comment on above: Performed By: #### H AUSTIN CMP3M #### [facility] [address], [place] CO2 [Moles/Vol] 21 mmol/L Low 22-30 [facility] Comment on above: Performed By: #### H AUSTIN CMP3M #### [facility] [address], [place] Glucose [Mass/Vol] 288 mg/dL High 70-100 [facility] Comment on above: Performed By: #### H AUSTIN CMP3M #### [facility] [address], [place] Protein [Mass/Vol] 7.0 g/dL Normal 6.3-8.2 [facility] Comment on above: Performed By: #### H AUSTIN CMP3M #### [facility] [address], [place] Urea nitrogen [Mass/Vol] 24 mg/dL High 7-20 [facility] Comment on above: Performed By: #### Papito AVILA CMP3M #### [facility] [address], [place] Creatinine [Mass/Vol] 1.03 mg/dL Normal 0.52-1.25 [facility] Comment on above: Performed By: #### Papito AVILA CMP3M #### [facility] [address] [place] [address] GFR/1.73 sq M predicted among blacks MDRD (S/P/Bld) [Vol rate/Area] mL/min/{1.73_m2} Normal >60 [facility] Comment on above: Performed By: #### Papito AV[employer]A CMP3M #### [address] [address], [place] GFR/1.73 sq M predicted among non-blacks MDRD (S/P/Bld) [Vol rate/Area] 53.1 mL/min/{1.73_m2} Normal >60 [facility] Comment on above: Result Comment: Sour ce- MDRD equation with creatinine calibration to IDMS(NKDEP) eGFR not recommended for drug dose adjustment Performed By: #### Papito AVILA CMP3M #### [address] [address], [place] Albumin [Mass/Vol] 3.9 g/dL Normal 3.5-5.0 [facility] Comment on above: Performed By: #### Papito AVILA CMP3M #### [address] [address], [place] Chloride [Moles/Vol] 106 mmol/L Normal 98-107 [facility] Comment on above: Performed By: #### Papito AVILA CMP3M #### [address] [address], [place] Potassium [Moles/Vol] 4.8 mmol/L Normal 3.5-5.1 [facility] Comment on above: Performed By: #### Papito AVILA CMP3M #### [address] [address], [place] Sodium [Moles/Vol] 136 mmol/L Normal 135-145 [facility] Comment on above: Performed By: #### H [facility], CMP3M #### [facility] [address] [place] [address] Comprehensive Metabolic Pane l w/ Reflex to MGon 02-23-2019 Albumin [Mass/Vol] 3.9 g/dL 3.5 - 5 g/dL [place] ALP [Catalytic activity/Vol] 57 U/L 38 - 126 U/L [place] ALT [Catalytic activity/Vol] 53 U/L 13 - 69 U/L [place] Anion gap [Moles/Vol] 8 mmol/L [place], [place] AST [Catalytic activity/Vol] 49 U/L High 15 - 46 U/L [place] Bilirubin Ql (U) 0.5 mg/dL 0.2 - 1.3 mg/dL [place] Calcium [Mass/Vol] 9.1 mg/dL 8.4 - 10. 4 mg/dL [place] Chloride [Moles/Vol] 106 mmol/L 98 - 10 7 mmol/L [place] CO2 [Moles/Vol] 21 mmol/L Low 22 - 30 mmol/L [place] Creatinine [Mass/Vol] 1.03 mg/dL 0.52 - 1.25 mg/dL [place] EGFR IF NonAfrican [place] 53.1 mL/min >60 [place] Comment on above: Source- MDRD equatio n with creatinine calibration to IDCA(NKDEP) eGFR not recommended for drug dose adjustment GFR/1.73 sq M predicted among blacks MDRD (S/P/Bld) [Vol rate/Area] mL/min/{1.73_m2} >60 mL/min [place], [place] Glucose [Mass/Vol] 288 mg/dL High 70 - 100 mg/dL [place] Interpretation and review of laboratory results Abnormal [place], [place] Potassium [Moles/Vol] 4.8 mmol/L 3.5 - 5.1 mmol/L [place] Protein [Mass/Vol] 7.0 g/dL 6.3 - 8.2 g/dL [place] Sodium [Moles/Vol] 136 mmol/L 135 - 145 mmol/L [place], [place] Urea nitrogen [Mass/Vol] 24 mg/dL High 7 - 20 mg/dL [place] Test Performed by [facility], [address] [place] [address] [place], [place] Glucose,Bedsideon 02-23-2019 Glucose [Mass/Vol] 296 mg/dL High 70-100 [place] Comment on above: Test performed by gl ucose meter. Results may be 10%-15% lower than serum/plasma values. (CLIA ID [id number]) Result Comment: Test performed by glucose meter. Results may be 10%-15% lower than serum/plasma values. (CLIA ID [id number]) Performed By: #### B GLU #### [address] [address] [place] [address] Glucose [Mass/Vol] 328 mg/dL [facility] [address] Comment on above: Result Comment: Test performed by glucose meter. Results may be 10%-15% lower than serum/plasma values. (CLIA ID [id number]) Performed By: #### B GLU #### [address] [place] [address] Glucose [Mass/Vol] 348 mg/dL [address] Comment on above: Result Comment: Test performed by glucose meter. Results may be 10%-15% lower than serum/plasma values. (CLIA ID [id number]) Performed By: #### B GLU #### [facility] [address] [place] [address] Glucose [Mass/Vol] 315 mg/dL [facility] [address] Comment on above: Result Comment: Test performed by glucose meter. Results may be 10%-15% lower than serum/plasma values. (CLIA ID [id number]) Performed By: #### B GLU #### [facility] [address] [place] [address] Hemogramon 02-23-2019 Erythrocyte distribution width (RBC) [Ratio] 13.1 % Normal 11.5-14.5 [facility] Comment on above: Performed By: #### Papito AVILA CMP3M #### [address] [address], [place] Hematocrit (Bld) [Volume fraction] 44.3 % Normal 35.0-47.0 [facility] Comment on above: Performed By: #### Papito AVILA CMP3M #### [address] [address], [place] Hemoglobin (Bld) [Mass/Vol] 15.1 g/dL Normal 11.7-16.0 [facility] Comment on above: Performed By: #### Papito AVILA CMP3M #### [address] [address] [place], [place] MCH (RBC) [Entitic mass] 30.8 pg Normal 26.0-34.0 [facility] Comment on above: Performed By: #### Papito AVILA CMP3M #### [address] [address] [address] [place], [place] MCHC (RBC) [Mass/Vol] 34.0 % Normal 32.0-36.0 [facility] Comment on above: Performed By: #### Papito AVILA CMP3M #### [address] [address] [place], [place] MCV (RBC) [Entitic vol] 90.3 fL Normal 79.0-98.0 [facility] Comment on above: Performed By: #### Papito AVILA CMP3M #### [address] [address], [place] Platelet mean volume (Bld) [Entitic vol] 9.4 fL Normal 7.4-10.4 [facility] Comment on above: Performed By: #### Papito AVILA CMP3M #### [address] [address] [place] Platelets (Bld) [#/Vol] 212 10*3/uL Normal 140-440 [facility] Comment on above: Performed By: #### Papito AVILA CMP3M #### [facility] [address] [place] [address] RBC (Bld) [#/Vol] 4.90 10*6/uL Normal 3.80-5.20 [facility] Comment on above: Performed By: #### H EMOG, CMP3M #### [facility] [address] [place] [address] WBC (Bld) [#/Vol] 8.6 10*3/uL Normal 3.6-10.7 [facility] Comment on above: Performed By: #### H EMOG, CMP3M #### [facility] [address] [place] [address] POCT Glucoseon 02-23-2019 Interpretation and review of laboratory results Abnormal [facility] Test Performed by [facility], [facility] [place] [address] [facility] Glucose [Mass/Vol] 328 mg/dL High 70 - 100 mg/dL [facility] [place] Comment on above: Test performed by gl ucose meter. Results may be 10%-15% lower than serum/plasma values. (CLIA ID [id number]) Interpretation and review of laboratory results Abnormal [facility] Test Performed by [employer] [facility], [facility] [place] [address] [facility] Glucose [Mass/Vol] 348 mg/dL High 70 - 100 mg/dL [facility] [place] Comment on above: Test performed by gl ucose meter. Results may be 10%-15% lower than serum/plasma values. (CLIA ID [id number]) Interpretation and review of laboratory results Abnormal [facility] Test Performed by [employer] [facility], [facility] [place] [address] [facility] Glucose [Mass/Vol] 315 mg/dL High 70 - 100 mg/dL [facility] [place] Comment on above: Test performed by gl ucose meter. Results may be 10%-15% lower than serum/plasma values. (CLIA ID [id number]) Interpretation and review of laboratory results Abnormal [facility] Test Performed by [facility], [address] [place] [address] [place], [place] XR CHEST PORTABLEon 02-24-20 Patient Name: CHRISTY FRANCIS ---Diagnostic Radiology--- Exam Date/Time 02/23/2019 17:30:22 EST Exam CR Chest Portable Ordering Physician RICHY ENCINAS ANDREW G Accession Number [id number] CPT4 Codes 77962 () Reason For Exam preop CABG Report [...] ALFRED Transcribed Date and Time: 02/23/2019 9:18 [place], [place] Kathie Torres Incoming Radiology Results From [employer] - 02/23/2019 9:20 PM EST Patient Name: CHRISTY FRANCIS ---Diagnostic Radiology--- Exam Date/Time 02/23/2019 17:30:22 EST Exam CR Chest Portable Ordering Physician RICHY ENCINAS, MINOO Rivera Accession Number [id number] CPT4 Codes 03865 () Reason For Exam preop CABG Report [...] ALFRED Transcribed Date and Time: 02/23/2019 9:18 [facility], [place] Glucose,Bedsideon 02-22-2019 Glucose [Mass/Vol] 283 mg/dL High 70-100 [facility] Comment on above: Result Comment: Test performed by glucose meter. Results may be 10%-15% lower than serum/plasma values. (CLIA ID [id number]) Performed By: #### B GLU #### [facility] [address] [place] [address] Glucose [Mass/Vol] 200 mg/dL High 70-100 [facility] Comment on above: Result Comment: Test performed by glucose meter. Results may be 10%-15% lower than serum/plasma values. (CLIA ID [id number]) Performed By: #### B GLU #### [facility] [address] [place] [address] POCT Glucoseon 02-22-2019 Glucose [Mass/Vol] 283 mg/dL High 70 - 100 mg/dL [place], [place] Comment on above: Test performed by gl ucose meter. Results may be 10%-15% lower than serum/plasma values. (CLIA ID [id number]) Interpretation and review of laboratory results Abnormal [place], [place] Test Performed by [facility] [email or web address] [facility], [facility] [place] [address] [facility], [place] Glucose [Mass/Vol] 200 mg/dL High 70 - 100 mg/dL [facility], [place] Comment on above: Test performed by gl ucose meter. Results may be 10%-15% lower than serum/plasma values. (CLIA ID [id number]) Interpretation and review of laboratory results Abnormal [facility] [place] [place] Test Performed by [employer] [facility], [facility] [place] [address] [facility], [place] Vital Signs Date Time Vital Sign Value Performing Clinician Facility 01-03-2025 09:30-0400 Body temperature 97.7 [degF] Dr. Marielos Perla DO Work Phone: [facility] 01-03-2025 09:30-0400 Body weight 74.[address] Marielos Perla DO Work Phone: [facility] 01-03-2025 09:30-0400 Diastolic blood pressure 64 mm[Hg] Dr. Marielos Perla DO Work Phone: [facility] 01-03-2025 09:30-0400 Heart rate 106 /min Dr. Marielos Perla DO Work Phone: [facility] 01-03-2025 09:30-0400 Respiratory rate 16 /min Dr. Marielos Perla DO Work Phone: [facility] 01-03-2025 09:30-0400 SaO2% (BldA) [Mass fraction] 97 % Dr. Marielos Perla DO Work Phone: [facility] 01-03-2025 09:30-0400 Systolic blood pressure 108 mm[Hg] Dr. Marielos Perla DO Work Phone: [facility] 12-12-2024 10:53-0400 Body temperature 97.7 [degF] Dr. Marielos Perla DO Work Phone: [facility] 12-12-2024 10:53-0400 Body weight 76.[address] Marielos Perla DO Work Phone: [facility] 12-12-2024 10:53-0400 Diastolic blood pressure 78 mm[Hg] Dr. Marielos Perla DO Work Phone: [facility] 12-12-2024 10:53-0400 Heart rate 112 /min Dr. Marielos Perla DO Work Phone: [facility] 12-12-2024 10:53-0400 Respiratory rate 18 /min Dr. Marielos Perla DO Work Phone: [facility] 12-12-2024 10:53-0400 SaO2% (BldA) [Mass fraction] 98 % Dr. Marielos Perla DO Work Phone: [facility] 12-12-2024 10:53-0400 Systolic blood pressure 126 mm[Hg] Dr. Marielos Perla DO Work Phone: [facility] 11-02-2024 10:17-0400 Body height 157.[address] Marielos Perla DO Work Phone: [facility] 11-02-2024 10:17-0400 Body mass index (BMI) [Ratio] 30.5 kg/m2 Dr. Marielos Perla DO Work Phone: [facility] 11-02-2024 10:17-0400 Body weight 75.[address] Marielos Perla DO Work Phone: [facility] 11-02-2024 10:17-0400 Diastolic blood pressure 65 mm[Hg] Dr. Marielos Perla DO Work Phone: [facility] 11-02-2024 10:17-0400 Respiratory rate 18 /min Dr. Marielos Perla DO Work Phone: [facility] 11-02-2024 10:17-0400 Systolic blood pressure 112 mm[Hg] Dr. Marielos Perla DO Work Phone: [facility] 06-05-2024 10:52-0500 Body height 157.[address] Marielos Perla DO Work Phone: [facility] 06-05-2024 10:52-0500 Body mass index (BMI) [Ratio] 34.2 kg/m2 Dr. Marielos Perla DO Work Phone: [facility] 06-05-2024 10:52-0500 Body weight 84.[address] Marielos Perla DO Work Phone: [facility] 06-05-2024 10:52-0500 Diastolic blood pressure 73 mm[Hg] Dr. Marielos Perla DO Work Phone: [facility] 06-05-2024 10:52-0500 Heart rate 98 /min Dr. Marielos Perla DO Work Phone: [facility] 06-05-2024 10:52-0500 Respiratory rate 18 /min Dr. Marielos Perla DO Work Phone: [facility] 06-05-2024 10:52-0500 Systolic blood pressure 119 mm[Hg] Dr. Marielos Perla DO Work Phone: [facility] 11-18-2022 13:38-0400 Body height 157.[address] Marielos Perla Work Phone: [facility] 11-18-2022 13:38-0400 Body mass index (BMI) [Ratio] 35.8 kg/m2 Dr. Marielos Perla Work Phone: [facility] 11-18-2022 13:38-0400 Body weight 88.[address] Marielos Perla Work Phone: [facility] 11-18-2022 13:38-0400 Diastolic blood pressure 80 mm[Hg] Dr. Marielos Perla Work Phone: [facility] 11-18-2022 13:38-0400 Heart rate 93 /min Dr. Marielos Perla Work Phone: [facility] 11-18-2022 13:38-0400 Respiratory rate 18 /min Dr. Marielos Perla Work Phone: [facility] 11-18-2022 13:38-0400 SaO2% (BldA) [Mass fraction] 95 % Dr. Marielos Perla Work Phone: [facility] 11-18-2022 13:38-0400 Systolic blood pressure 146 mm[Hg] Dr. Marielos Perla Work Phone: [facility] 08-20-2022 09:54-0400 Body height 157.[address] Marielos Perla Work Phone: [facility] 08-20-2022 09:54-0400 Body mass index (BMI) [Ratio] 35.3 kg/m2 Dr. Marielos Perla Work Phone: [facility] 08-20-2022 09:54-0400 Body weight 87.[address] Marielos Perla Work Phone: [facility] 08-20-2022 09:54-0400 Diastolic blood pressure 79 mm[Hg] Dr. Marielos Perla Work Phone: [facility] 08-20-2022 09:54-0400 Heart rate 76 /min Dr. Marielos Perla Work Phone: [facility] 08-20-2022 09:54-0400 Respiratory rate 18 /min Dr. Marielos Perla Work Phone: [facility] 08-20-2022 09:54-0400 Systolic blood pressure 139 mm[Hg] Dr. Marielos Perla Work Phone: [facility] 03-29-2022 18:34-0500 Body temperature 98.3 [degF] [facility] 03-29-2022 18:34-0500 Diastolic blood pressure 85 mm[Hg] [facility] 03-29-2022 18:34-0500 Heart rate 74 /min [facility] 03-29-2022 18:34-0500 Respiratory rate 18 /min [facility] 03-29-2022 18:34-0500 SaO2% (BldA) [Mass fraction] 99 % [facility] 03-29-2022 18:34-0500 Systolic blood pressure 125 mm[Hg] [facility] 03-29-2022 17:27-0500 Body height 157.48 cm [facility] 03-29-2022 17:27-0500 Body mass index (BMI) [Ratio] 33.8 kg/m2 [facility] 03-29-2022 17:27-0500 Body weight 83.91 kg [facility] 03-03-2019 15:30-0500 BP Diastolic 55 mm[Hg] Mil Pettit [facility] , [place] 03-03-2019 15:30-0500 BP Systolic 124 mm[Hg] Mil Pettit [facility] , [place] 03-03-2019 15:30-0500 Pulse (Heart Rate) 83 /min Mil Pettit [facility], [place] 03-03-2019 15:30-0500 Pulse Oximetry 96 % Mil [facility] , [place] 03-03-2019 15:30-0500 Respiratory Rate 18 /min Mil Pettit [facility], [place] 03-03-2019 11:51-0500 Body Temperature 97.81 [degF] Mil [facility], [place] 03-03-2019 00:00-0500 BMI (Body Mass Index) 34.14 kg/m2 Mil Ashley [facility], [place] 03-03-2019 00:00-0500 Body weight 81.97 kg Mil [facility] , [place] 02-28-2019 12:00-0500 Height 154.9 cm Mil [facility] , [place] Encounters Encounter Date Encounter Type Care Provider Facility Start: 01-18-2025 ambulatory Marielos Perla Facility:[facility] Start: 01-10-2025 ambulatory Marielos Perla Facility:[facility] Start: 01-03-2025 End: 01-03-2025 Patient encounter procedure Ava HOLLAND -[facility] Work Phone: Start: 01-03-2025 End: 01-03-[address] Marielos Perla DO Work Phone: -[facility] Start: 12-22-2024 Non-patient / Non-visit Dr. Grant coburn MD -[facility] Start: 12-22-2024 End: 12-22-[address] Marielos Perla DO Work Phone: -Cardiovascular Services Start: 12-22-2024 End: 12-22-2024 Patient encounter procedure Ava HOLLAND -[facility] Work Phone: Start: 12-22-2024 End: 12-22-2024 ambulatory Marielos Perla Facility:[facility] Start: 12-12-2024 End: 12-12-2024 Patient encounter procedure Ava HOLLAND -[facility] Work Phone: Start: 12-12-2024 End: 12-12-[address] Marielos Perla DO Work Phone: -[facility] Start: 12-06-2024 End: 12-06-[address] Marielos Perla DO Work Phone: -[facility] Start: 12-06-2024 End: 12-06-2024 Patient encounter procedure Jennifer HOLLAND -[facility] Work Phone: Start: 12-06-2024 End: 12-06-2024 [facility] Start: 11-29-2024 End: 11-29-[address] Marielos Perla DO Work Phone: -[facility] Start: 11-29-2024 End: 11-29-[address] Marielos Perla DO -[facility] Work Phone: Start: 11-29-2024 End: 11-29-2024 ambulatory Marielos Perla Facility:[facility] Start: 11-02-2024 End: 11-02-2024 Patient encounter procedure Jennifer HOLLAND -[facility] Work Phone: Start: 11-02-2024 End: 11-02-[address] Marielos Perla DO Work Phone: -[facility] Start: 11-02-2024 End: 11-02-2024 [facility] Start: 09-18-2024 End: 09-18-[address] Marielos Perla DO Work Phone: [facility] Work Phone: Start: 09-18-2024 End: 09-18-2024 Patient encounter procedure Rand Mckeon MEDICAL GENETICIST-C -[facility] [place] Work Phone: Start: 09-18-2024 End: 09-18-2024 ambulatory Rand Mckeon Facility:[facility] Start: 06-05-2024 End: 06-05-2024 Patient encounter procedure Charlie Johnson MEDICAL GENETICIST-C -[facility] Work Phone: Start: 06-05-2024 End: 06-05-2024 ambulatory Charlie Johnson Facility:[facility] Start: 03-09-2024 End: 03-09-2024 ambulatory Charlie Johnson Facility:[facility] Start: 02-19-2024 End: 02-21-2024 ambulatory Grant Castelan Facility:[facility] Start: 01-27-2024 End: 01-27-2024 ambulatory Marielos Perla Facility:[facility] Start: 07-19-2023 End: 07-19-2023 ambulatory [facility] Work Phone: Start: 07-19-2023 End: 07-19-2023 Patient encounter procedure [facility]iology, [place] Work Phone: Start: 06-14-2023 End: 06-14-2023 ambulatory [facility] Work Phone: Start: 06-14-2023 End: 06-14-2023 Patient encounter procedure [facility]-Cat Scan, [facility] Work Phone: Start: 11-25-2022 End: 11-25-[address] Marielos Perla Work Phone: [facility] Work Phone: Start: 11-25-2022 End: 11-25-[address] Marielos Perla Work Phone: [facility]-Pulmonary Services/Neurology Work Phone: Start: 11-23-2022 End: 11-23-[address] Marielos Perla Work Phone: [facility] Work Phone: Start: 11-23-2022 End: 11-23-[address] Marielos Perla Work Phone: [facility]-Laboratory, [facility]ibode[facility] Start: 11-18-2022 End: 11-18-[address] Marielos Perla Work Phone: [facility] Work Phone: Start: 08-20-2022 End: 08-20-[address] Marielos Perla Work Phone: [facility] Work Phone: Start: 08-14-2022 End: 08-14-[address] Marielos Perla Work Phone: [facility] Work Phone: Start: 08-14-2022 End: 08-14-[address] Marielos Perla Work Phone: [facility]-Laboratory Start: 07-08-2022 End: 07-08-[address] Marielos Perla Work Phone: [facility] Work Phone: Start: 07-08-2022 End: 07-08-[address] Marielos Perla Work Phone: [facility]-Cardiovascular Services Start: 06-16-[address] Marielos Perla Work Phone: [facility]-Physical Therapy Start: 06-09-2022 End: 06-09-[address] Marielos Perla Work Phone: [facility] Start: 05-23-2022 End: 05-23-2022 ambulatory [facility] Work Phone: Start: 05-23-2022 End: 05-23-2022 Patient encounter procedure [facility] Start: 03-29-2022 End: 03-29-2022 Emergency department patient visit [facility]-Emergency Department Start: 02-25-2022 End: 02-25-2022 ambulatory [facility] Work Phone: Start: 02-25-2022 End: 02-25-2022 Patient encounter procedure [facility]-Laboratory Start: 02-22-2019 End: 03-03-2019 Evaluation and management of inpatient Mil Pettit Work Phone: [facility] Comment on above: CAD in [place] artery (Primary Dx); S/P CABG x 3; [...] metabolic pane l calcium total [facility] [employer] Work Phone: Start: 03-01-2019 Gluc bld gluc [...] ecg w/le ast 12 lds w/i&r [facility] Work Phone: Start: 02-25-2019 Gluc bld gluc mntr d ev cleared fda spec home use [employer] Work Phone: Start: 02-25-2019 Urnls dip stick/tabl et rgnt auto w/o microscopy [employer] Work Phone: Start: 02-25-2019 Hemoglobin glycosyla akil a1c [facility] Work Phone: Start: 02-24-2019 Gluc bld gluc mntr d ev cleared fda spec home use [employer] Work Phone: Start: 02-24-2019 Gluc bld gluc mntr d ev cleared fda spec home use [employer] Work Phone: Start: 02-24-2019 Gluc bld gluc mntr d ev cleared fda spec home use [employer] Work Phone: Start: 02-24-2019 Gluc bld gluc mntr d ev cleared fda spec home use [employer] Work Phone: Start: 02-23-2019 Gluc bld gluc mntr d ev cleared fda spec home use [employer] Work Phone: Start: 02-23-2019 Radiologic exam ches t single view [facility] [employer] Work Phone: Start: 02-23-2019 BEDSIDE SPIROMETRY Andr kaylee [employer] Work Phone: Start: 02-23-2019 Gluc bld gluc mntr d ev cleared fda spec home use [employer] Work Phone: Start: 02-23-2019 End: 02-23-2019 Gluc bld gluc mntr dev cleared fda spec home use [employer] Work Phone: Start: 02-23-2019 Blood count complete [...] artery bypass graft x 3 Charlie Johnson MEDICAL GENETICIST-C Comment on above: CABG x3 with GIRALDO to LAD, SVG to OM 2, and SVG to PDA of RCA on 02/27/[address] Taylor at [facility]; Plan of Treatment Date Care Activity Detail Author Start: 06-09-2022 Patient referral [facility] Work Phone: Start: 02-24-2020 Creatinine monitoring Creatinine mon [place]oring [place] Start: 02-24-2020 Potassium monitoring Potassium monit [place]ing [place] Start: 03-14-2019 End: 03-14-2019 Office Visit 03/14/2019 Office Visit Cardiothoracic Surgery Ronda Carmona, SUPERVISORY HISTORIAN - VAT HOUSE SUPERVISOR [address] [place] [address] [phone] [facility] Start: 02-24-2019 Annual Wellness Visi t (AWV) Annual Wellness Visit (AWV) [place] Start: 12-18-2018 Influenza vaccination Flu vaccine (# 1) [place] Start: 2015 DEXA (modify frequen cy per FRAX score) DEXA (modify frequency per FRAX score) [place] Start: 2015 Pneumococcal 65+ yea rs Vaccine (1 of 1 - PPSV23) Pneumococcal 65+ years Vaccine (1 of 1 - PPSV23) [place] Start: 01-31-2000 Breast cancer screen Breast cancer s [place], [place] Start: 01-31-2000 Colon cancer screen colonoscopy Colon cancer screen colonoscopy [place] Start: 01-31-2000 Shingles Vaccine (1 of 2) Shingles V accine (1 of 2) [place] Start: 01-31-1968 Diabetic microalbumi ximena test Diabetic microalbuminuria test [place], [place] Start: 1961 DTaP/Tdap/Td vaccine (1 - Tdap) DTaP/Tdap/Td vaccine (1 - Tdap) [place] Start: 01-31-1960 [object Object] Diabetic foot exam M [place], [place] Start: 01-31-1960 A1C test (Diabetic o r Prediabetic) A1C test (Diabetic or Prediabetic) [place] Start: 01-31-1960 Diabetic retinal exam Diabetic retin al exam [place] Start: 01-31-1960 Lipid screen Lipid screen [place], [place] Start: 1950 Hepatitis C screen Hepatitis C scree n [place] Acapella Acapella Respira tory Care Routine Every 2hr while awake until discontinued starting 02/27/2019 [place] Comment on above: Every 2hr while awak e until discontinued starting 02/27/2019 Ankle brachial press ure index [facility] Basic metabolic 2000 panel Basic Metabolic Panel Lab Routine Daily until discontinued starting 02/27/2019, 4 completed [place] Comment on above: Daily until disconti nued starting 02/27/2019, 4 completed Basic metabolic 2008 panel with ionized calcium - Serum or Plasma [facility] Blood chemistry [facility] CBC CBC Lab Routine Daily until discontinued starting 02/27/2019, 5 completed [place] Comment on above: Daily until disconti nued starting 02/27/2019, 5 completed [facility] Treatment [place] Comment on above: 0800, 1200, 1600, 20 00 (respiratory use only) until discontinued starting 02/27/2019 Every 4hr until disc ontinued starting 03/02/2019 Incentive spirometry Incentive s pirometry Respiratory Care Routine Every 1hr while awake until discontinued starting 02/27/2019 [place] Comment on above: Every 1hr while awak e until discontinued starting 02/27/2019 Initiate Oxygen Ther apy Protocol Initiate Oxygen Therapy Protocol Respiratory Care Routine Daily until discontinued starting 02/27/2019 [place] Comment on above: Daily until disconti nued starting 02/27/2019 Patient Education Bruises (Contu sions) ED Abrasion [facility] Work Phone: Patient referral [facility] Work Phone: POCT glucose [facility] Comment on above: 4X Daily (AC & HS) u ntil discontinued starting 03/01/2019 As Needed until disc ontinued starting 03/01/2019 End: 02-23-2019 Urinalysis Urinalysis Lab Routine One Time for 1 Occurrences starting 02/23/2019 until 02/23/2019 [place] Comment on above: One Time for 1 Occur rences starting 02/23/2019 until 02/23/2019 Urinalysis Urinalysis Lab R outine 02/23/2019 6:49 PM EST [place] US Heart [facility] XR CHEST PORTABLE XR CHEST MIHIR BLE Imaging Routine Daily until discontinued starting 02/28/2019, 4 completed [place] Comment on above: Daily until disconti nued starting 02/28/2019, 4 completed XR Lumbar spine 2 or 3 Views [facility] Immunizations Immunization Date Immunization Notes Care Provider Sher ferreira 01-18-2024 influenza, high dose seasonal, preservative-free Dr. Marielos Perla DO Work Phone: [facility] 07-11-2020 Covid (Pfizer) [facility] 07-09-2020 tetanus toxoid, redu deejay diphtheria toxoid, and acellular pertussis vaccine, adsorbed [facility] 06-20-2020 Covid (Pfizer) [facility] 02-01-2019 Influenza virus vaccine [facility] Payers Date Payer Category Payer Medicare [id number] 2023 Self-pay [id number] 2023 Unknown [id number] 2018 Medicare HUMANA MEDICARE HUMANA CHOICE-PPO MEDICARE xxxxxxxxx 2018-Present [address] [address] [place] [address] xxxxxxxxx [id number] Medicare [id number] Medicare MEDICARE PART A B [id number] Unknown [id number] Unknown [id number] 2.16.840.1.099392.3.579.2.462 Unknown [id number] 2.16.840.1.329153.3.579.2.462 Unknown [id number] 2.16.840.1.717424.3.579.2.462 Unknown [id number] 2.16.840.1.699672.3.579.2.462 Unknown [id number] 2.16.840.1.021899.3.579.2.462 Unknown [id number] 2.16.840.1.090418.3.579.2.462 Unknown [id number] 2.16.840.1.801217.3.579.2.462 Unknown [id number] 2.16.840.1.064944.3.579.2.462 Unknown [id number] 2.16.840.1.029879.3.579.2.462 Unknown [id number] 2.16.840.1.137388.3.579.2.462 Unknown [id number] 2.16.840.1.006660.3.579.2.462 Unknown [id number] 2.16.840.1.391009.3.579.2.462 Unknown [id number] 2.16.840.1.124998.3.579.2.462 Unknown [id number] 2.16.840.1.463965.3.579.2.462 Unknown [id number] 2.16.840.1.678172.3.579.2.462 Unknown [id number] 2.16.840.1.653091.3.579.2.462 Unknown [id number] 2.16.840.1.276405.3.579.2.462 Unknown [id number] 2.16.840.1.513666.3.579.2.462 Unknown [id number] 2.16.840.1.790571.3.579.2.462 Social History Date Type Detail Facility Start: 02-23-2019 End: 11-18-2022 Tobacco smoking status NHIS Unknown if ever smoked [facility] Sex Assigned At Not on file [place] Start: 01-15-2021 None [facility] Start: 01-15-2021 Homeless [facility] Start: 01-15-2021 Cigarettes [facility] Start: 1950 Sex Assigned At Female [facility] Start: 03-09-2024 [facility] sm[facility] Sex Female [facility] Medical Equipment Procedure Code Equipment Code Equipment Origin al Text Equipment Identifier Dates Test three times a day & as needed for symptoms of irregular blood glucose. [id number] Start: 03-03-2019 Clinical Notes 02-17-2019 to 12-23-2024 Note Date & Type Note Facility 12-23-2024 Radiology Diagnostic study note [facility] Imaging Services [address] [place], [place] [address] Lumbar Spine 2 or 3 Views MR#: [id number] Acct: [id number] Name: CHRISTY FRANCIS Rep #: [id number] : 1950 F 74 From: Pamela Bullock MD PCP: Dr. Marielos Perla, DO Status: REG CLI Study:Lumbar Spine 2 or 3 Views Date of Exam: 12/22/24 Exam# [id number] Ordering Dr: Rio Young EXAM: XR Lumbosacral [...] changes lumbar spine as described. Reading Location: [id number] CC: SKYLER Watson; Dr. Marielos Perla DO ~ Plane Captain: Signed [facility] 11-29-2024 Radiology Diagnostic study note [facility] Imaging Services [address] [place] [id number] Pelvic w/ Transvaginal MR#: [id number] Acct: [id number] Name: CHRISTY FRANCIS Rep #: [id number] : 1950 F 74 From: Randy Reese MD PCP: Dr. Marielos Perla DO Status: REG CLI Study:Pelvic w/ Transvaginal Date of Exam: 11/29/24 Exam# [id number] Ordering Dr: Tresa Perla sa, DO PROCEDURE: [...] Endometrial thickening. Clinical correlation recommended. Reading Location: [id number] CC: Dr. Marielos Perla, DO ~ Plane Captain: Signed [facility] 11-02-2024 Evaluation note Diagnosis Onset Date Resolution Severe left ventricular systolic dysfunction (LVSD) acute November 02 10:11am Essential hypertension chronic November 02, 2024 10:11am History of coronary artery bypass graft x February, chronic November 02, 2024 10:11am HLD (hyperlipidemia) chronic November 02, 2024 10:11am PAD (peripheral artery disease) chronic November 02, 2024 10:11am [facility] Work Phone: 1(442) 270-291007-17-2025 Evaluation note* Diagnosis Onset Date Resolution Status [...] (peripheral artery disease) chronic December 12 10:37am [facility] Work Phone: 1(105) 358-981506-02-2025 Radiology Diagnostic study note [facility] Imaging Services [address] [place] [address] L/S Spine Min 4 Views MR#: [id number] Acct: [id number] Name: CHRISTY FRANCIS Rep #: [id number] : 1950 F 74 From: Adrianna Serrano MD PCP: Dr. Marielos Perla DO Status: REG CLI Study:L/S Spine Min 4 Views Date of Exam: 09/18/24 Exam# [id number] Ordering Dr: Ra javier Mckeon PROCEDURE: L/S SPINE MIN 4 VIEWS 09/18/2024 REASON FOR EXAM: PAIN, SCIATICA TECHNIQUE: Four views of the lumbar spine COMPARISON: None FINDINGS: There are 5 [id number] lumbar-type vertebral bodies. The pars are not [...] on L5 is likely degenerative. Reading Location: [id number] CC: JOHNATHON Mckeon; Dr. Marielos Perla DO ~ Plane Captain: Signed [facility]02-17-2025 Evaluation note* Diagnosis Onset Date Resolution Status Admit Date Essential hypertension chronic Fe bruary 2024 10:41am History of coronary artery bypass graft x 3 February, chronic June 05, 2024 10:41am HLD (hyperlipidemia) chronic Febr uary 2024 10:41am PAD (peripheral artery disease) chronic June 05, 025 10:41am Shortness of breath chronic Febru kristine 2024 10:41am [facility] Work Phone: 1(110) 116-447711-04-2024 [facility] Medical Records Department [address] [place] [address] Discharge Summary 02/21/24 1153 MR#: [id number] Acct: [id number] Name: CHRISTY FRANCIS Rep #: [id number] : 1950 74 From: Kaushik Castro MD PCP: Dr. Marielos Perla, DO Status:ADM BRIAN Location: [place] [address] Providers Date of Admission: 02/19/24 Date of [...] Pain: Patient placed on a monitored bed ID had so far been ruled out with [...] 30.1, MCHC 32.7, RDW (more content not included)...[facility]11-01-2019 Evaluation note* Diagnosis Onset Date Resolution Status Chest pain acute Essential hypertension acute History of coronary artery bypass graft x February, acute HLD (hyperlipidemia) chronic PAD (peripheral artery disease) chronic [facility] Work Phone: 1(945) 448-609011-01-2019 Evaluation note* Diagnosis Onset Date Resolution Status Chest pain acute Essential hypertension acute History of coronary artery bypass graft x February, acute HLD (hyperlipidemia) chronic PAD (peripheral artery disease) chronic Essential hypertension acute History of coronary artery bypass graft x February, acute Palpitations acute HLD (hyperlipidemia) chronic PAD (peripheral artery disease) [facility] Work Phone: 1(722) 191-257111-01-2019 Evaluation note* Diagnosis Onset Date Resolution Status Admit Date Severe left ventricular systolic dysfunction (LVSD) acute November 02, 2024 10:11am Essential hypertension chronic Ju 2024 10:11am History of coronary artery bypass graft x February, chronic November 02, 2024 10:11am HLD (hyperlipidemia) chronic November 02, 2024 10:11am PAD (peripheral artery disease) chronic November 02, 2024 10:11am [facility] Work Phone: Evaluation noteNo assessment information available [facility] Work Phone: Evaluation note* Diagnosis Onset Date Resolution Status Right rotator cuff tear acut e [facility] Work Phone: Hospital Discharge instructions Additional Instructions X-rays of your shoulder knee showed no broken bones. Rest, ice, and use the Percocet as needed. After that you can take Tylenol or Motrin. If symptoms are not improving in 1 week please see your primary care doctor for reevaluation.[facility] Work Phone: Reason for referral (narrative)No reason for referral information [facility] Work Phone: Discharge Instructions * Discharge Instr - Lab* Yamilet Nogueira RN - 03/02/2019 3:13 PM EST Your physician has ordered skilled home care services for you. Your home care will be provided by: [facility] [phone] * Additional Instructions* Lukas Moise, SUPERVISORY HISTORIAN - VAT HOUSE SUPERVISOR - 03/03/2019 When to call the surgeon: If any symptoms concern you, call us: -Dr. Taylor/Dr. Medina's office -Phone number [phone] [address] [place] [address] [place] Notify us if the following occur: [...] Everywhere. * Coronary Artery Bypass Graft: Post-op ([place] Islander) documented in this encounter History of Present [...] medications would be and if reasonable with [facility] if not then will redo [...] Date 03/03/19 0000 - 03/03/19 2359 Shift 4903-0798 0841-1917 5065-4686 24 Hour Total INTAKE P.O. 120 120 [...] gms)/meal Problem List: Principal Problem: CAD in [place] artery Active Problems: S/P CABG x 3 Hyperkalemia Diabetes mellitus (HCC) Hypertension HFrEF (heart failure with reduced ejection fraction) ([facility]) Resolved Problems: * No resolved hospital [...] 03/02/2019 3:28 PM EST Physical Therapy Facility/Department: [facility] Daily Treatment [...] of Arthritis, Blood circulation, collateral, CAD in [place] artery, Diabetes mellitus (HCC), HFrEF (heart failure with reduced ejection fraction) ([facility]), and Hypertension. has a past surgical [...] x1 ) Clint Gresham, SPTA Seun Baker, MARINE ENGINE MACHINIST * Oren Admas MD - 03/02/2019 9:21 AM EST Critical [...] []Injected [x]Non-Injected / Pinnae []Normal []Other/ Dentitian [][place] Teeth []Dentures Oral Mucosa [][place] [x]Moist []Dry/ Oral ETT []Present [x]Absent Neck: [...] [x]Absent/ FER[place] ([]RUE []RLE []LUE []LLE) Neurologic: ILIAMNA []Yes [x]No Corneal reflexes []Present []Absent / [...] ABG: Recent Labs 02/27/19 1545 PHART 7.274* [id number] 46.0* PO2ART 270.6* Q2FBAXDE 98.8 CBC: Recent Labs 03/01/19 0015 03/02/19 [...] Portable Ordering Physician GRANT TAYLOR Accession Number [id number] CPT4 Codes 39403 () Reason For Exam sob Report CLINICAL INFORMATION: Shortness of breath. Status post open heart surgery. CHEST X-RAY, PORTABLE, 0537 hours: An AP portable view is compared to the prior examination of previous day. There is no change in the mediastinal or left lower hemithorax chest tubes or right internal jugular [place]-Jose introducer sheath. There is stable slightly limited [...] avoid intravascular fluid depletion Case discussed with MEDICAL GENETICIST from CTS, (Minoo) Critical care will sign [...] minutes so far today. * Minoo Encinas, SUPERVISORY HISTORIAN - UNDERGROUND TRUCK OPERATOR - 03/02/2019 4:05 AM EST Cardiothoracic Surgery [...] will hold off for now. EF: 45% [facility]; intraop DONNELL pending-02/27 POD # 3 [...] with home health Planned Disposition: patient from [facility]; home when medically stable [x] Home with [...] of Arthritis, Blood circulation, collateral, CAD in [place] artery, Diabetes mellitus (HCC), HFrEF (heart failure with reduced ejection fraction) ([facility]), and Hypertension. 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 [employer] Leisure & Hobbies: making candies, breads Objective [...] precautions LUE Strength LUE Strength Comment: good polishing machine operator helper strength RUE Strength RUE Strength Comment: good polishing machine operator helper strength Plan Plan Times per week: 3-5 times per week Plan weeks: 2 weeks Current Treatment Recommendations: Strengthening, Endurance Training, Patient/Caregiver Education & Training, Self-Care / ADL, Equipment Evaluation, Education, & procurement, Balance Training, Functional Mobility Training, Safety Education & Training Plan Comment: Pt follows sternal precautions without reminders. AM-PAC Score AM-[facility] Inpatient Daily Activity Raw Score: 21 (03/01/19 1445) [facility] Inpatient ADL T-Scale Score : 44.27 (03/01/19 1445) ADL Inpatient [facility] 0-100% Score: 32.79 (03/01/19 1445) ADL Inpatient [facility] G-Code Modifier : CJ (03/01/191444) Goals [...] Plan of Care supervision is transferred to [facility] Occupational Therapist. Goals and/or treatment plan was established in collaboration with patient/family/other representatives. Heather Zhang OTR/L * Jos Baker, MARINE ENGINE MACHINIST - 03/01/2019 1:48 PM EST Physical Therapy Facility/Department: [facility] Daily Treatment [...] of Arthritis, Blood circulation, collateral, CAD in [place] artery, Diabetes mellitus (HCC), HFrEF (heart failure with reduced ejection fraction) ([facility]), and Hypertension. has a past surgical [...] on own throughout day. G-Code OutComes Score AM-[facility] Score [facility] Inpatient Mobility Raw Score : 15 (03/01/191346) [facility] Inpatient T-Scale Score : 39.45 (03/01/191346) Mobility [...] Conrad MD - 03/01/2019 10:53 AM EST [facility] [address] [address] Dept: [phone] Loc: [phone] Visit Date: 03/01/2019 HPI: Christy Francis is [...] Date Arthritis Blood circulation, collateral CAD in [place] artery 02/22/2019 Diabetes mellitus (HCC) HFrEF (heart failure with reduced ejection fraction) (HCC) Hypertension Past Surgical History: Procedure Laterality Date CHOLECYSTECTOMY JOINT REPLACEMENT Current Facility-Administered Medications Medication Dose Route Frequency Provider Last Rate Last Dose heparin (porcine) injection 5,000 Units 5,000 Units Subcutaneous BID DIANA Dial UNDERGROUND TRUCK OPERATOR 5,000 Units at 03/01/19 0856 metoprolol tartrate (LOPRESSOR) tablet 25 mg 25 mg Oral BID Lukas DIANA Moise - VAT HOUSE SUPERVISOR 25 mg at 856 pantoprazole (PROTONIX) tablet 40 mg 40 mg Oral QAM AC Lukas Moise APRN - VAT HOUSE SUPERVISOR 40 mg at 03/01/19 0709 FLUoxetine (PROZAC) capsule 20 mg 20 mg Oral Daily DIANA Moore VAT HOUSE SUPERVISOR 20 mg at 03/01/19 0856 0.45 [...] Grant Taylor MD 1 drop at 02/27/19 7553 Allergies Allergen Reactions Cefazolin Hives and Shortness [...] Assessment: Type 2 DM with hyperglycemia with fpc insulin use s/p cabg 02/27 Will likely [...] []Injected [x]Non-Injected / Pinnae []Normal []Other/ Dentitian [][place]eth []Dentures Oral Mucosa [][place] [x]Moist []Dry/ Oral ETT []Present [x]Absent Neck: [...] [x]Absent/ FERGUSON ([]RUE []RLE []LUE []LLE) Neurologic: ILIAMNA []Yes [x]No Corneal reflexes []Present []Absent / [...] ABG: Recent Labs 02/27/19 1545 PHART 7.274* UVU1NPC 46.0* PO2ART 270.6* K4MQANTE 98.8 CBC: Recent Labs 02/28/19 0404 03/01/19 [...] Portable Ordering Physician GRANT TAYLOR Accession Number [id number] CPT4 Codes 22875 () Reason For Exam sob Report CLINICAL INFORMATION: Shortness of breath. Status post open heart surgery. CHEST X-RAY, PORTABLE, 0537 hours: An AP portable view is compared to the prior examination of previous day. There is no change in the mediastinal or left lower hemithorax chest tubes or right internal jugular [place]n-Jose introducer sheath. There is stable slightly limited [...] minutes so far today. * Minoo Encinas, SUPERVISORY HISTORIAN - UNDERGROUND TRUCK OPERATOR - 03/01/2019 4:54 AM EST Cardiothoracic Surgery [...] Date 03/01/19 0000 - 03/01/19 235 Shift 6467-9068 1125-1820 4282-8353 24 Hour Total INTAKE Shift Total(mL/kg) OUTPUT [...] this morning may increase BB. EF: 45% [facility]; intraop DONNELL pending-02/27 POD # 2 [...] with home health Planned Disposition: patient from [facility]; home when medically stable [x] Home with [...] mg Oral Daily Active Problems: CAD in [place] artery Diabetes mellitus (HCC) Hypertension HFrEF (heart failure with reduced ejection fraction) ([facility]) Resolved Problems: * No resolved hospital [...] SR-ST 90-120s DONNELL: In process Last Echo: [facility] LVEF 45%. Mild MAC with mild MR Last stress test: [facility] NST Stress Induced Ischemia involving portions [...] left. 8. Dispo - Pt lives in [place] and states she intends to follow up [...] up weekly Nutrition Assessment: Pt presents from [place] for evaluation for PCI vs CABG after presenting to [place] ED with chest pressure and having abnormal [...] High Nutrient Needs: Estimated Daily Total Kcal: 2358-8660 Estimated Daily Protein (g): 48-57 Estimated Daily [...] Asaf=19. Chest tubex3. Labs noted: ^BUN-25, ^potassium-7.0-->6.7, jrplzew-72-137, HgA1C on 02/25-10.3% Wound Type: Surgical Wound [...] confirm weight change, will continue to monitor [place] Body Wt: 105 lb (47.6 kg), % [place] Body 168% BMI Classification: BMI 30.0 - [...] 02/28/2019 12:03 PM EST Physical Therapy Facility/Department: [facility] Initial Assessment NAME: Christy Francis : 1950 Date of Service: 02/28/2019 Discharge Recommendations: Home independently Assessment Body structures, Functions, Activity limitations: Decreased strength;Decreased endurance;Decreased functional mobility ;Decreased safe awareness;Decreased balance Assessment: Pt admitted for Pod#1 CABG x 3. 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 Pt this date [...] of Arthritis, Blood circulation, collateral, CAD in [place] artery, Diabetes mellitus (HCC), HFrEF (heart failure with reduced ejection fraction) ([facility]), and Hypertension. 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 Goals and/or treatment plan was established in collaboration with patient/family/other (specify). Mil Reddy PT * Liz Diaz, SUPERVISORY HISTORIAN - UNDERGROUND TRUCK OPERATOR - 02/28/2019 11:20 AM EST ENDOCRINOLOGY PROGRESS NOTE Patient: Christy Francis Unit/Bed:[id number] Date of : 1950 Admit date: 02/22/2019 [...] Assessment: Type 2 DM with hyperglycemia with terminal carman insulin use Lab Results Component Value Date LABA1C 10.3 (H) 02/25/2019 Multivessel CAD with Angina - [facility] on 02/22 concerning for multivessel disease - S/p CABG yesterday Plan: As outpatient prior to this admission: Manager Of Change: None Diabetes Medications/regimen: Metformin 500 mg daily [...] []Injected [x]Non-Injected Pinnae [x]Normal []Other Oral Mucosa [x][place] [x]Moist []Dry Oral ETT []Present [x]Absent Neck: [...] [x]Absent FERGUSON ([x]RUE [x]RLE [x]LUE [x]LLE) Neurologic: ILIAMNA []Yes [x]No Corneal reflexes []Present []Absent Plantar [...] prophylaxis Patient Active Problem List: CAD in [place] artery Diabetes mellitus (HCC) Hypertension HFrEF (heart failure with reduced ejection fraction) ([facility]) CHANTELL ÁLVAREZ MD * Lukas Moise [...] Date 02/28/19 0000 - 02/28/19 2359 Shift 0480-9677 9411-1048 5699-6625 24 Hour Total INTAKE I.V.(mL/kg/hr) 2220(3.5) 2220 [...] LIQUID; Problem List: Active Problems: CAD in [place] artery Diabetes mellitus (HCC) Hypertension HFrEF (heart failure with reduced ejection fraction) ([facility]) Resolved Problems: * No resolved hospital [...] EST Hospitalist Progress Note 02/27/2019 10:49 AM [phone]: Please page me for patient care issues. [phone]: Please page IMS night Hospitalist for any [...] of Hospitalist Medicine Inpatient Medical Services PAGER: [phone] * Sixto Salamanca MD - 02/26/2019 1:31 [...] Assessment: Type 2 DM with hyperglycemia with fpc insulin use Lab Results Component Value Date LABA1C 10.3 (H) 02/25/2019 Multivessel CAD with Angina - [facility] on 02/22 concerning for multivessel disease - Planning for possible CABG on Wednesday Plan: As outpatient prior to this admission: Manager Of Change: None Diabetes Medications/regimen: Metformin 500 mg daily [...] 2-4 weeks after discharge * Ronda Carmona, SUPERVISORY HISTORIAN - VAT HOUSE SUPERVISOR - 02/26/2019 11:23 AM EST Cardiothoracic Surgery Progress Note 02/26/2019 Subjective: Admit Date: 02/22/2019 Interval History: Transferred from [place](see consult note) Multivessel CAD plan for CABG [...] Date 02/26/19 0000 - 02/26/19 2359 Shift 9592-7706 4236-2038 0916-3530 24 Hour Total INTAKE P.O. 240 240 [...] Specified Problem List: Active Problems: CAD in [place] artery Diabetes mellitus (HCC) Hypertension HFrEF (heart failure with reduced ejection fraction) ([facility]) Resolved Problems: * No resolved hospital [...] Assessment: Type 2 DM with hyperglycemia with terminal carman insulin use Lab Results Component Value Date LABA1C 10.3 (H) 02/25/2019 Multivessel CAD with Angina - [facility] on 02/22 concerning for multivessel disease - Planning for possible CABG on Wednesday Plan: As outpatient prior to this admission: Manager Of Change: None Diabetes Medications/regimen: Metformin 500 mg daily [...] weeks after discharge * Harry Ronda Mia, SUPERVISORY HISTORIAN - VAT HOUSE SUPERVISOR - 02/25/2019 10:52 AM EST Cardiothoracic Surgery Progress Note 02/25/2019 Subjective: Admit Date: 02/22/2019 Interval History: Transferred from [place](see consult note) Multivessel CAD plan for CABG [...] Date 02/25/19 0000 - 02/25/19 2359 Shift 9094-6943 1767-3633 7248-3627 24 Hour Total INTAKE P.O. 200 300 [...] CONTROL; Problem List: Active Problems: CAD in [place] artery Diabetes mellitus (HCC) Hypertension HFrEF (heart failure with reduced ejection fraction) ([facility]) Resolved Problems: * No resolved hospital [...] TBD Jayson Metzger MD * Lukas Moise, SUPERVISORY HISTORIAN - VAT HOUSE SUPERVISOR - 02/24/2019 2:54 PM EST Cardiothoracic Surgery Progress Note 02/24/2019 Subjective: Admit Date: 02/22/2019 Interval History: Transferred from [place](see consult note) Multivessel CAD plan for CABG [...] kg/m I/O: Date 02/24/19 - 02/24/192358 Shift 4192-5636 2391-4261 8586-9217 24 Hour Total INTAKE P.O. 287 360 7908 Shift Total(mL/kg) 400(5) 720(9) 1120(14) OUTPUT Urine(mL/kg/hr) [...] CONTROL; Problem List: Active Problems: CAD in [place] artery Diabetes mellitus (HCC) Hypertension HFrEF (heart failure with reduced ejection fraction) ([facility]) Resolved Problems: * No resolved hospital [...] Date 02/24/19 0000 - 02/24/19 2359 Shift 5486-9247 0444-4041 0778-1284 24 Hour Total INTAKE P.O.(mL/kg/hr) 400(0.6) 400 [...] neurologic deficits. Assessment Active Problems: CAD in [place] artery Diabetes mellitus (HCC) Hypertension HFrEF (heart failure with reduced ejection fraction) ([facility]) Resolved Problems: * No resolved hospital [...] be monitored and followed by the diet library acquisitions technician. Keren Banks DT * Mil Pettit MD - 02/23/2019 9:52 AM EST Hospitalist Progress Note 02/23/2019 9:52 AM Subjective: Admit Date: 02/22/2019 PCP: LIANET PETERS Interval History: pt feels ok Some sore throat No overnight issues. Deniesabdominal pain, nausea, vomiting, diarrhea, constipation, fevers, or chills. DIET CARB CONTROL; Date 02/23/19 0000 - 02/23/19 2359 Shift 7922-2645 2128-5649 9625-3353 24 Hour Total INTAKE Shift Total(mL/kg) OUTPUT [...] neurologic deficits. Assessment Active Problems: CAD in [place] artery Diabetes mellitus ([facility]) Hypertension HFrEF (heart failure with reduced ejection fraction) ([facility]) Resolved Problems: * No resolved hospital problems. * Await CTS and cards review of images, surgical planning Increase insulin Supportive care otherwise See orders, continue POC Advance Directive: Full Code Suzan Trevino Hospitalist documented in this encounter Assessments Diagnosis CAD in [place] artery- Primary Coronary atherosclerosis of [place] coronary artery S/P CABG x 3 Postsurgical aortocoronary bypass status Type 2 diabetes mellitus with other circulatory complication, with long-term current use of insulin ([facility]) Diabetes mellitus ([facility]) Type II or unspecified type diabetes mellitus without mention of complication, not stated as uncontrolled Hypertension Unspecified essential hypertension HFrEF (heart failure with reduced ejection fraction) ([facility]) Hyperkalemia Hyperpotassemia Advance Directives No Advanced Directives Records FoundDocuments on File Type Date Recorded Patient Hand Rigger Expl anation Advance Directives and Living Will Power of Funeral Pre Arrangement Counselor Latest Code Status on File Code Status Date Activated Date Inactivated Comments Full Code 02/27/2019 4:35 PM Full Code 02/22/2019 3:10 PM 02/27/2019 4:35 PM Advance Directive Response Recorded Date/ Time Advance Directives Yes May 8:25am Living Will Yes June 03 8:25am Power of Funeral Pre Arrangement Counselor Yes June 03, 2021 8:25am Advance Directive Response Recorded Date/ Time Advance Directives Yes May 8:25am Living Will No March 29 5:45pm Power of Funeral Pre Arrangement Counselor No March 29, 2022 5:45pm Advance Directive Response Recorded Date/ Time Advance Directives Yes May 9:25am Living Will No March 29 6:45pm Power of Funeral Pre Arrangement Counselor No March 29, 2022 6:45pm Advance Directive Response Recorded Date/ Time Advance Directives Yes May 9:25am Advance Directive Response Recorded Date/ Time Living Will No October 01, 2023 2:53pm Do you have a Healthcare Power of Funeral Pre Arrangement Counselor? No October 01, 2023 2:53pm Advance Directives [...] section and content) DATE CREATED AUTHOR 05/04/2019 [employer] DATE CREATED AUTHOR AUTHOR'S ORGANIZ ATION 01/06/[address] [facility] Goals (unrecognized section and content) Goals [...] DO Primary Care Provider Active Charlie Johnson MEDICAL GENETICIST, MEDICAL GENETICIST-C Attending Provider, Referring Pro vider Active Team [...] Provider, Referring P rovider Active Kaley Son MEDICAL GENETICIST, MEDICAL GENETICIST-C Attending Provider Active Team Status: Inactive Member Role Status Dates Dr. Marielos Perla DO Primary Care Provider, Referring P rovider Active Jennifer Bailey PA, PA Attending Provider Active Team Status: Active Member Role Status Dates Dr. Marielos Perla DO Primary Care Provider Active Jennifer aBiley PA, PA Attending Provider, Referr ing Provider [...] 2024 End: June 05, 2024 Charlie Johnson MEDICAL GENETICIST, MEDICAL GENETICIST-C Attending Provider Active S tart: June 05, [...] End: September 18, 2024 Rand Mike , MEDICAL GENETICIST-C Referring Provider Active St art: September 18, [...] Marielos Perla DO Primary care physician Active Team Status: [...] BE BASED ON THE PRIMARY CLINICAL RECORDS. [facility] [employer] [facility]. provides no warranty or guarantee of the accuracy or completeness of information in this document.
[2025-01-07] MEDS: 0.9% Saline Lock 10 ML Syringe IV (17:18)
[2025-01-07 17:53] LABS: Prothrombin Time (Protime)PT. 14.2 SECONDS (11.7-14.9)
[2025-01-07 17:54] LABS: Partial Thromboplast Time 26.9 Seconds (24.1-36.2)
--- NOTE | 2025-01-07 17:56 | EKG12_ITS ---
Test Reason : ADM EKG Blood Pressure : */* mmHG Vent. Rate : 88 BPM Atrial Rate : 88 BPM P-R Int : 162 ms QRS Dur : 76 ms QT Int : 382 ms P-R-T Axes : 40 -5 58 degrees QTcB Int : 462 ms Normal sinus rhythm Normal ECG When compared with ECG of 07-Jan-2025 12:34, MANUAL COMPARISON REQUIRED DATA IS UNCONFIRMED Confirmed by FELIPE ROMERO, ANTONIO ([id number]), international editorial producer SHILPA VALENZUELA ([id number]) on 01/08/2025 10:32:10 AM Referred By: SATHYA Confirmed By: ANTONIO WANG MD
[2025-01-08] VITALS (15 sets, daily range): BP systolic 82–143; BP diastolic 44–105; PULSE 79–94; RESP 14–18; TEMP 36.3–36.8; O2SAT 92–97
[2025-01-08 05:45] LABS: Hematocrit 37.3 % (37-47); Hemoglobin 12.2 g/dL (12.0-15.0); Immature Granulocytes Count 0.050 X10^3/uL (0.0-0.0); Mean Corp Hgb Conc 32.7 g/dL (32-36); Mean Corpuscular Volume 93.5 fL (81-99); Mean Platelet Vol. 11.0 fl (6.2-12.0); NRBC Flagged by Analyzer 0 % (0-5); Platelet Count 282 K/mm3 (150-450); RBC Distribution Width CV 15.0 % (11.6-14.6); RBC Distribution Width SD 51.2 fl (35.1-43.9); Red Blood Count 3.99 M/mm3 (4.2-5.4); White Blood Count 10.4 K/mm3 (4.4-11.0)
--- NOTE | 2025-01-08 05:55 | EKG12_ITS ---
Test Reason : AM EKG Blood Pressure : */* mmHG Vent. Rate : 91 BPM Atrial Rate : 91 BPM P-R Int : 166 ms QRS Dur : 78 ms QT Int : 334 ms P-R-T Axes : 62 -6 82 degrees QTcB Int : 410 ms Normal sinus rhythm Possible Left atrial enlargement Borderline ECG When compared with ECG of 07-Jan-2025 16:23, MANUAL COMPARISON REQUIRED DATA IS UNCONFIRMED Confirmed by FELIPE ROMERO, ANTONIO ([id number]), news editor SHILPA VALENZUELA ([id number]) on 01/08/2025 10:31:37 AM Referred By: Confirmed By: ANTONIO WANG MD
[2025-01-08] MEDS: Aspirin E.C. 81 MG Tablet PO (06:05)
--- NOTE | 2025-01-08 06:52 | PCM.CONS.C ---
Assessment & Plan Assessment/Plan (1) Chest pain: PLAN: She presents with chest discomfort which is suggestive of unstable angina. My recommendation at this time especially with her last stress test within the last year is to proceed with a left heart catheterization. Depending on the findings further recommendations will be made. (2) History of coronary artery bypass graft x 3: PLAN: She is status post coronary bypass surgery x 3 with a known occlusion of the saphenous vein graft to the obtuse marginal branch. Will reevaluate the others for further therapeutic measures. (3) Essential hypertension: PLAN: She does have a history of hypertension her blood pressure appears to be well-controlled at this time. (4) HLD (hyperlipidemia): QUALIFIERS: Hyperlipidemia type: unspecified Qualified Code(s): E78.5 - Hyperlipidemia, unspecified PLAN: Her lipid profile is excellent at this particular time. (5) PAD (peripheral artery disease): PLAN: She does have peripheral vascular disease but is not experiencing any claudication symptoms at this particular time. Will review her medications. HPI Consult Data Date of Consult: 01/08/25 HPI Narrative HPI Narrative: KINGSLEY GURROLA, is a 74 F who presents to the emergency room with chest discomfort. She says that this has been described as tightness across her chest. She had experienced similar symptoms when she was seen in our office. However she tells me that the above symptomatology appears to be getting worse and more frequent and she is having some of it at rest. In the emergency room her EKG demonstrated sinus rhythm with no acute changes. Cardiac enzymes were minimally elevated. She has a history of coronary artery bypass surgery with a GIRALDO to the LAD saphenous vein graft to obtuse marginal branch, and saphenous vein graft to the right coronary artery. In addition she has hyperlipidemia hypertension peripheral vascular disease. She did undergo a stress test in February 2024 which demonstrated no evidence of ischemia. She has lost some weight on her GLP-1 she unfortunately continues to use some tobacco products albeit less than she was doing before. Her last catheterization in 2021 demonstrated the patent GIRALDO to the LAD and the saphenous vein graft to the posterior descending artery. The graft to the obtuse marginal branch was occluded. [facility] Medical History Severe left ventricular systolic dysfunction (LVSD) Palpitations Right rotator cuff tear Trigger finger of both hands Carpal tunnel syndrome on both sides FHx: cholecystectomy History of left heart catheterization (LHC) (~06/03/21) Essential hypertension Mechanical loosening of prosthetic knee Atherosclerosis of rampart coronary artery of rampart heart without angina pectoris PAD (peripheral artery disease) HLD (hyperlipidemia) Type II diabetes mellitus Home Medications ?Medication ?Instructions ?Recorded ?Last Taken ?Type aspirin 81 mg tablet,delayed 81 mg PO DAILY heart health 12/15/13 01/07/25 History release duloxetine 60 mg capsule,delayed 60 mg PO DAILY mental health 08/20/22 01/07/25 History release allopurinol 300 mg tablet 300 mg PO BID gout 11/05/23 01/07/25 History cilostazol 100 mg tablet 100 mg PO BID anti platelet 11/05/23 01/07/25 History oxycodone-acetaminophen 5 mg-325 1 tab PO TID PRN PRN pain 02/19/24 02/03/24 History mg tablet rosuvastatin 10 mg tablet See Rx Instructions .Route 04/17/24 01/06/25 Rx .COMPLEX cholesterol #90 TABLETS furosemide 40 mg tablet 40 mg PO DAILY diuretic #90 TABLETS 06/19/24 01/07/25 Rx glimepiride 4 mg tablet 4 mg PO BID 11/02/24 01/07/25 History insulin aspar prt-insulin aspart 20 unit subcut QAM diabetes 11/02/24 01/07/25 History 100 unit/mL (70-30) subcutaneous soln (Novolog Mix 70-30 U-100 Insuln) nitroglycerin 0.4 mg sublingual 0.4 mg sublingual Q5-15M PRN chest 11/02/24 Unknown Rx tablet pain #25 tabs tirzepatide 10 mg/0.5 mL 10 mg subcut .every week 11/02/24 Unknown History subcutaneous pen injector (May) metoprolol tartrate 50 mg tablet 50 mg PO BID blood pressure #180 12/11/24 01/07/25 Rx tabs isosorbide mononitrate 60 mg 60 mg PO BID 01/07/25 01/07/25 History tablet,extended release 24 hr losartan 25 mg tablet 25 mg PO DAILY 01/07/25 01/07/25 History omeprazole 20 mg capsule,delayed 20 mg PO DAILY 01/07/25 01/07/25 History release Allergy/AdvReac Type Severity Reaction Status Date / Time cefazolin Allergy Shortness Verified 01/07/25 12:23 of breath codeine Allergy Shortness Verified 01/07/25 12:23 of breath morphine Allergy Other Verified 01/07/25 12:23 naloxone (Naloxone) Allergy Shortness Verified 01/07/25 12:23 of breath pentazocine Allergy Shortness Verified 01/07/25 12:23 of breath pentazocine lactate (From Allergy Shortness Verified 01/07/25 12:23 Vaibhavwin) of breath atorvastatin AdvReac Severe Severe Verified 01/07/25 12:23 myalgias acetaminophen (From Tylenol) AdvReac Nausea Verified 01/07/25 12:23 Family History Mother Heart disease Surgical History History of cholecystectomy History of coronary artery bypass graft x 3 (~02/27/19) History of prosthetic unicompartmental arthroplasty of left knee Social History Smoking Status: Light Smoker (<10/day) alcohol intake: current alcohol intake frequency: holidays/special occasions only substance use type: does not use caffeine: Yes Type: coffee Number of servings: 3 ROS Constitutional Constitutional: Reports fatigue, malaise and weakness; Denies anorexia, chills or fever(s) Eyes Eyes: Denies change in vision ENT HEENT: Denies dysphagia or headache(s) Cardiovascular Cardiovascular: Reports chest pain; Denies claudication, dyspnea on exertion, edema, lightheadedness, orthopnea, palpitations, paroxysmal nocturnal dyspnea, rapid heart rate or syncope Respiratory/Chest Respiratory/Chest: Denies cough, excessive phlegm production, productive cough, shortness of breath at rest or shortness of breath with exertion Gastrointestinal Gastrointestinal: Denies abdominal pain, diarrhea, nausea or vomiting Genitourinary Genitourinary: Denies difficulty urinating Neurologic Neurologic: Denies confusion, dizziness, focal weakness, headache(s), numbness, seizures or syncope Psychiatric Psychiatric: Denies anxiety or depression Physical Exam Const alert, oriented x3 and no apparent distress General Appearance: cooperative HEENT hearing grossly normal bilaterally Head and Scalp: atraumatic Eyes EOMs intact bilaterally Neck General: normal visual inspection Chest inspection of chest normal and palpation of chest normal Resp normal respiratory effort Auscultation: clear to auscultation bilaterally Cardio regular rate, regular rhythm, S1 normal heart sound and S2 normal heart sound Jugular Venous Distention: JVD GI normal to inspection, nondistended, normoactive bowel sounds Extremity normal capillary refill and no pedal edema Peripheral Pulses: Yes pulses 2+ throughout and femoral pulses present Skin no rashes or lesions noted Neuro oriented x3 and CN's II-XII intact bilaterally Psych Appearance: grossly normal and appropriate Objective Data Vital Signs: Vital Signs Temp Pulse Resp BP Pulse Ox O2 Del Method 98.3 F 90 16 143/69 H 94 Room Air 01/08/25 03:50 01/08/25 06:03 01/08/25 03:50 01/08/25 06:03 01/08/25 03:50 01/08/25 03:50 Oxygen Delivery Method Room Air Weight: 165 lb 9.074 oz Body Mass Index (BMI) 30.2 Intake & Output: Intake and Output for Last 24 Hours 01/06/25 01/07/25 01/08/25 23:59 23:59 23:59 Intake Total 23.51 / 23.51 Balance 23.51 / 23.51 Lab / Micro Data 01/08/25 04:49 01/07/25 12:32 Labs: Laboratory Results - last 24 hr 01/07/25 12:32: WBC 11.9 H 01/07/25 12:32: WBC Cancelled, Corrected WBC Cancelled, RBC 4.22 01/07/25 12:32: RBC Cancelled, Hgb 13.4 01/07/25 12:32: Hgb Cancelled, Hct 40.1 01/07/25 12:32: Hct Cancelled, MCV 95.0 01/07/25 12:32: MCV Cancelled, MCH 31.8 01/07/25 12:32: MCH Cancelled, MCHC 33.4 01/07/25 12:32: MCHC Cancelled, RDW Std Deviation 53.1 H 01/07/25 12:32: RDW Std Deviation Cancelled, RDW Coeff of Dede 15.2 H 01/07/25 12:32: RDW Coeff of Dede Cancelled, Plt Count 312 01/07/25 12:32: Plt Count Cancelled, MPV 11.0 01/07/25 12:32: MPV Cancelled, Immature Gran % (Auto) 0.300 01/07/25 12:32: Immature Gran % (Auto) Cancelled, Neut % (Auto) 70.0 01/07/25 12:32: Neut % (Auto) Cancelled, Lymph % (Auto) 14.8 L 01/07/25 12:32: Lymph % (Auto) Cancelled, [place] % (Auto) 9.1 01/07/25 12:32: [place] % (Auto) Cancelled, Eos % (Auto) 5.2 H 01/07/25 12:32: Eos % (Auto) Cancelled, Baso % (Auto) 0.6 01/07/25 12:32: Baso % (Auto) Cancelled, Absolute Neuts (auto) 8.4 H 01/07/25 12:32: Absolute Neuts (auto) Cancelled, Absolute Lymphs (auto) 1.76 01/07/25 12:32: Absolute Lymphs (auto) Cancelled, Total Counted Cancelled, Neutrophils % (Manual) Cancelled, Band Neutrophils % Cancelled, Lymphocytes % (Manual) Cancelled, Monocytes % (Manual) Cancelled, Eosinophils % (Manual) Cancelled, Basophils % (Manual) Cancelled, Metamyelocytes % Cancelled, Myelocytes % Cancelled, Promyelocytes % Cancelled, Blast Cells % Cancelled, Plasma Cell % (Manual) Cancelled, Other Cells % Cancelled, Nucleated RBC % 0 01/07/25 12:32: Nucleated RBC % Cancelled, Nucleated RBCs/100 WBC Cancelled, Differential Comment Cancelled, Diff Path Review Cancelled, Hypersegmented Neuts Cancelled, Atypical Lymphocytes Cancelled, Reactive Lymphocytes Cancelled, Smudge Cells Cancelled, Toxic Granulation Cancelled, Toxic Vacuolation Cancelled, Dohle Bodies Cancelled, Isatu Rods Cancelled, Platelet Estimate Cancelled, Plt Morphology Comment Cancelled, RBC Morphology Cancelled 01/07/25 12:32: RBC Morphology Cancelled, Polychromasia Cancelled, Hypochromasia Cancelled, Basophilic Stippling Cancelled, Anisocytosis Cancelled, Microcytosis Cancelled, Macrocytosis Cancelled, Spherocytes Cancelled, Sickle Cells Cancelled, Target Cells Cancelled, Tear Drop Cells Cancelled, Ovalocytes Cancelled, Stomatocytes Cancelled, Johnson-[place] Bodies Cancelled, Johan Cells Cancelled, Bite Cells Cancelled, Crenated Cell Cancelled, Acanthocytes (Spur) Cancelled, Rouleaux Cancelled, Schistocytes Cancelled, D-Dimer Quant (PE/DVT) 0.83 H*, Sodium 138, Potassium 4.0, Chloride 99, Carbon Dioxide 25.3, Anion Gap 13, BUN 29 H, Creatinine 1.26 H, Estim Creat Clear Calc 37.37 L, Est GFR (MDRD) Non-Af 45 L, BUN/Creatinine Ratio 22.7 H, Glucose 186 H, Calcium 9.5, Troponin T High Sens 27 H 01/07/25 14:31: PT 14.2, INR 1.1, APTT 26.9, Troponin T Hi Sens 2 Hr 28 H 01/07/25 16:20: Troponin T Hi Sens 4Hr 27 H 01/07/25 21:57: POC Glucose 194 H 01/08/25 04:49: WBC 10.4, RBC 3.99 L, Hgb 12.2, Hct 37.3, MCV 93.5, MCH 30.6, MCHC 32.7, RDW Std Deviation 51.2 H, RDW Coeff of Dede 15.0 H, Plt Count 282, MPV 11.0, Immature Gran % (Auto) 0.500, Neut % (Auto) 68.5, Lymph % (Auto) 13.2 L, [place] % (Auto) 10.8 H, Eos % (Auto) 6.3 H, Baso % (Auto) 0.7, Absolute Neuts (auto) 7.1, Absolute Lymphs (auto) 1.37, Nucleated RBC % 0 Cardiology Labs/Tests 01/07/25 12:32: WBC 11.9 H 01/07/25 12:32: WBC Cancelled, Corrected WBC Cancelled, RBC 4.22 01/07/25 12:32: RBC Cancelled, Hgb 13.4 01/07/25 12:32: Hgb Cancelled, Hct 40.1 01/07/25 12:32: Hct Cancelled, MCV 95.0 01/07/25 12:32: MCV Cancelled, MCH 31.8 01/07/25 12:32: MCH Cancelled, MCHC 33.4 01/07/25 12:32: MCHC Cancelled, Plt Count 312 01/07/25 12:32: Plt Count Cancelled, MPV 11.0 01/07/25 12:32: MPV Cancelled, Immature Gran % (Auto) 0.300 01/07/25 12:32: Immature Gran % (Auto) Cancelled, Neut % (Auto) 70.0 01/07/25 12:32: Neut % (Auto) Cancelled, Lymph % (Auto) 14.8 L 01/07/25 12:32: Lymph % (Auto) Cancelled, [place] % (Auto) 9.1 01/07/25 12:32: [place] % (Auto) Cancelled, Eos % (Auto) 5.2 H 01/07/25 12:32: Eos % (Auto) Cancelled, Baso % (Auto) 0.6 01/07/25 12:32: Baso % (Auto) Cancelled, Absolute Neuts (auto) 8.4 H 01/07/25 12:32: Absolute Neuts (auto) Cancelled, Total Counted Cancelled, Neutrophils % (Manual) Cancelled, Band Neutrophils % Cancelled, Lymphocytes % (Manual) Cancelled, Monocytes % (Manual) Cancelled, Eosinophils % (Manual) Cancelled, Basophils % (Manual) Cancelled, Metamyelocytes % Cancelled, Myelocytes % Cancelled, Promyelocytes % Cancelled, Blast Cells % Cancelled, Plasma Cell % (Manual) Cancelled, Other Cells % Cancelled, Nucleated RBC % 0 01/07/25 12:32: Nucleated RBC % Cancelled, D-Dimer Quant (PE/DVT) 0.83 H*, Sodium 138, Potassium 4.0, Chloride 99, Carbon Dioxide 25.3, Anion Gap 13, BUN 29 H, Creatinine 1.26 H, Est GFR (MDRD) Non-Af 45 L, BUN/Creatinine Ratio 22.7 H, Glucose 186 H, Calcium 9.5 01/07/25 14:31: PT 14.2, INR 1.1, APTT 26.9 01/08/25 04:49: WBC 10.4, RBC 3.99 L, Hgb 12.2, Hct 37.3, MCV 93.5, MCH 30.6, MCHC 32.7, Plt Count 282, MPV 11.0, Immature Gran % (Auto) 0.500, Neut % (Auto) 68.5, Lymph % (Auto) 13.2 L, [place] % (Auto) 10.8 H, Eos % (Auto) 6.3 H, Baso % (Auto) 0.7, Absolute Neuts (auto) 7.1, Nucleated RBC % 0 Rhythm: EKG: ECHO: Stress Test: Cardiac Cath: PCI: CT Surgery: Holter monitor: EPS: PPM: CXR: Chest CT Scan: Radiography Diagnostic Testing: Radiology Impression Chest X-Ray 01/07/25 12:40 IMPRESSION: NO ACUTE FINDINGS. Reading Location: [id number] Chest CTA 01/07/25 13:24 IMPRESSION: No significant abnormality Reading [facility] Risk Score for UA/STEMI Assesmment (YES = 1) Risk Stratification Applicable: Yes Age > or = 65: Yes > or = 3 CAD risk factors (HTN, Hypercholesterolemia, Diabetes, family hx, current smoker): Yes Known CAD (Stenosis > or = 50%): Yes ASA used in past 7 days: Yes Severe angina (> or = 2 episodes in 24 hrs): Yes EKG ST change > or = 0.5mm: No Positive cardiac markers: Yes Score LINK Risk Score of mortality/ recurrent ischemic event over the next 14 days: 6-7 = 40.9% - HIGH RISK
--- NOTE | 2025-01-08 12:50 | PN.CARD_ITS ---
Subjective Subjective Patient seen and evaluated. Underwent cardiac catheterization today Objective Data Vital Signs: Vital Signs Temp Pulse Resp BP Pulse Ox O2 Del Method 97.4 F L 79 18 105/64 92 Room Air 01/08/25 07:45 01/08/25 07:47 01/08/25 07:45 01/08/25 07:45 01/08/25 07:45 01/08/25 07:56 Oxygen Delivery Method Room Air Weight: 165 lb 9.074 oz Body Mass Index (BMI) 30.2 Intake & Output: Intake and Output for Last 24 Hours 01/06/25 01/07/25 01/08/25 23:59 23:59 23:59 Intake Total 23.51 / 23.51 Balance 23.51 / 23.51 Lab / Micro Data 01/08/25 04:49 01/07/25 12:32 Labs: Laboratory Results - last 24 hr 01/07/25 12:32: WBC 11.9 H 01/07/25 12:32: WBC Cancelled, Corrected WBC Cancelled, RBC 4.22 01/07/25 12:32: RBC Cancelled, Hgb 13.4 01/07/25 12:32: Hgb Cancelled, Hct 40.1 01/07/25 12:32: Hct Cancelled, MCV 95.0 01/07/25 12:32: MCV Cancelled, MCH 31.8 01/07/25 12:32: MCH Cancelled, MCHC 33.4 01/07/25 12:32: MCHC Cancelled, RDW Std Deviation 53.1 H 01/07/25 12:32: RDW Std Deviation Cancelled, RDW Coeff of Dede 15.2 H 01/07/25 12:32: RDW Coeff of Dede Cancelled, Plt Count 312 01/07/25 12:32: Plt Count Cancelled, MPV 11.0 01/07/25 12:32: MPV Cancelled, Immature Gran % (Auto) 0.300 01/07/25 12:32: Immature Gran % (Auto) Cancelled, Neut % (Auto) 70.0 01/07/25 12:32: Neut % (Auto) Cancelled, Lymph % (Auto) 14.8 L 01/07/25 12:32: Lymph % (Auto) Cancelled, [place] % (Auto) 9.1 01/07/25 12:32: [place] % (Auto) Cancelled, Eos % (Auto) 5.2 H 01/07/25 12:32: Eos % (Auto) Cancelled, Baso % (Auto) 0.6 01/07/25 12:32: Baso % (Auto) Cancelled, Absolute Neuts (auto) 8.4 H 01/07/25 12:32: Absolute Neuts (auto) Cancelled, Absolute Lymphs (auto) 1.76 01/07/25 12:32: Absolute Lymphs (auto) Cancelled, Total Counted Cancelled, Neutrophils % (Manual) Cancelled, Band Neutrophils % Cancelled, Lymphocytes % (Manual) Cancelled, Monocytes % (Manual) Cancelled, Eosinophils % (Manual) Cancelled, Basophils % (Manual) Cancelled, Metamyelocytes % Cancelled, Myelocytes % Cancelled, Promyelocytes % Cancelled, Blast Cells % Cancelled, Plasma Cell % (Manual) Cancelled, Other Cells % Cancelled, Nucleated RBC % 0 01/07/25 12:32: Nucleated RBC % Cancelled, Nucleated RBCs/100 WBC Cancelled, Differential Comment Cancelled, Diff Path Review Cancelled, Hypersegmented Neuts Cancelled, Atypical Lymphocytes Cancelled, Reactive Lymphocytes Cancelled, Smudge Cells Cancelled, Toxic Granulation Cancelled, Toxic Vacuolation Cancelled, Dohle Bodies Cancelled, Isatu Rods Cancelled, Platelet Estimate Cancelled, Plt Morphology Comment Cancelled, RBC Morphology Cancelled 01/07/25 12:32: RBC Morphology Cancelled, Polychromasia Cancelled, Hypochromasia Cancelled, Basophilic Stippling Cancelled, Anisocytosis Cancelled, Microcytosis Cancelled, Macrocytosis Cancelled, Spherocytes Cancelled, Sickle Cells Cancelled, Target Cells Cancelled, Tear Drop Cells Cancelled, Ovalocytes Cancelled, Stomatocytes Cancelled, Johnson-[place] Bodies Cancelled, Johan Cells Cancelled, Bite Cells Cancelled, Crenated Cell Cancelled, Acanthocytes (Spur) Cancelled, Rouleaux Cancelled, Schistocytes Cancelled, D-Dimer Quant (PE/DVT) 0.83 H*, Sodium 138, Potassium 4.0, Chloride 99, Carbon Dioxide 25.3, Anion Gap 13, BUN 29 H, Creatinine 1.26 H, Estim Creat Clear Calc 37.37 L, Est GFR (MDRD) Non-Af 45 L, BUN/Creatinine Ratio 22.7 H, Glucose 186 H, Calcium 9.5, Troponin T High Sens 27 H 01/07/25 14:31: PT 14.2, INR 1.1, APTT 26.9, Troponin T Hi Sens 2 Hr 28 H 01/07/25 16:20: Troponin T Hi Sens 4Hr 27 H 01/07/25 21:57: POC Glucose 194 H 01/08/25 04:49: WBC 10.4, RBC 3.99 L, Hgb 12.2, Hct 37.3, MCV 93.5, MCH 30.6, MCHC 32.7, RDW Std Deviation 51.2 H, RDW Coeff of Dede 15.0 H, Plt Count 282, MPV 11.0, Immature Gran % (Auto) 0.500, Neut % (Auto) 68.5, Lymph % (Auto) 13.2 L, M tori % (Auto) 10.8 H, Eos % (Auto) 6.3 H, Baso % (Auto) 0.7, Absolute Neuts (auto) 7.1, Absolute Lymphs (auto) 1.37, Nucleated RBC % 0 01/08/25 06:41: POC Glucose 189 H 01/08/25 11:17: POC Glucose 169 H Cardiology Labs/Tests 01/07/25 12:32: WBC 11.9 H 01/07/25 12:32: WBC Cancelled, Corrected WBC Cancelled, RBC 4.22 01/07/25 12:32: RBC Cancelled, Hgb 13.4 01/07/25 12:32: Hgb Cancelled, Hct 40.1 01/07/25 12:32: Hct Cancelled, MCV 95.0 01/07/25 12:32: MCV Cancelled, MCH 31.8 01/07/25 12:32: MCH Cancelled, MCHC 33.4 01/07/25 12:32: MCHC Cancelled, Plt Count 312 01/07/25 12:32: Plt Count Cancelled, MPV 11.0 01/07/25 12:32: MPV Cancelled, Immature Gran % (Auto) 0.300 01/07/25 12:32: Immature Gran % (Auto) Cancelled, Neut % (Auto) 70.0 01/07/25 12:32: Neut % (Auto) Cancelled, Lymph % (Auto) 14.8 L 01/07/25 12:32: Lymph % (Auto) Cancelled, [place] % (Auto) 9.1 01/07/25 12:32: [place] % (Auto) Cancelled, Eos % (Auto) 5.2 H 01/07/25 12:32: Eos % (Auto) Cancelled, Baso % (Auto) 0.6 01/07/25 12:32: Baso % (Auto) Cancelled, Absolute Neuts (auto) 8.4 H 01/07/25 12:32: Absolute Neuts (auto) Cancelled, Total Counted Cancelled, Neutrophils % (Manual) Cancelled, Band Neutrophils % Cancelled, Lymphocytes % (Manual) Cancelled, Monocytes % (Manual) Cancelled, Eosinophils % (Manual) Cancelled, Basophils % (Manual) Cancelled, Metamyelocytes % Cancelled, Myelocytes % Cancelled, Promyelocytes % Cancelled, Blast Cells % Cancelled, Plasma Cell % (Manual) Cancelled, Other Cells % Cancelled, Nucleated RBC % 0 01/07/25 12:32: Nucleated RBC % Cancelled, D-Dimer Quant (PE/DVT) 0.83 H*, Sodium 138, Potassium 4.0, Chloride 99, Carbon Dioxide 25.3, Anion Gap 13, BUN 29 H, Creatinine 1.26 H, Est GFR (MDRD) Non-Af 45 L, BUN/Creatinine Ratio 22.7 H , Glucose 186 H, Calcium 9.5 01/07/25 14:31: PT 14.2, INR 1.1, APTT 26.9 01/08/25 04:49: WBC 10.4, RBC 3.99 L, Hgb 12.2, Hct 37.3, MCV 93.5, MCH 30.6, MCHC 32.7, Plt Count 282, MPV 11.0, Immature Gran % (Auto) 0.500, Neut % (Auto) 68.5, Lymph % (Auto) 13.2 L, [place] % (Auto) 10.8 H, Eos % (Auto) 6.3 H, Baso % (Auto) 0.7, Absolute Neuts (auto) 7.1, Nucleated RBC % 0 Rhythm: EKG: ECHO: Stress Test: Cardiac Cath: PCI: CT Surgery: Holter monitor: EPS: PPM: CXR: Chest CT Scan: Radiography Diagnostic Testing: Radiology Impression Chest X-Ray 01/07/25 12:40 IMPRESSION: NO ACUTE FINDINGS. Reading Location: [facility] Chest CTA 01/07/25 13:24 IMPRESSION: No significant abnormality Reading Location: [facility] Physical Exam Const alert, oriented x3 and no apparent distress General Appearance: cooperative HEENT hearing grossly normal bilaterally Head and Scalp: atraumatic Eyes EOMs intact bilaterally Neck General: normal visual inspection Chest inspection of chest normal and palpation of chest normal Resp normal respiratory effort Auscultation: clear to auscultation bilaterally Cardio regular rate, regular rhythm, S1 normal heart sound and S2 normal heart sound Jugular Venous Distention: JVD GI normal to inspection, nondistended, normoactive bowel sounds Extremity normal capillary refill and no pedal edema Peripheral Pulses: Yes pulses 2+ throughout and femoral pulses present Skin no rashes or lesions noted Neuro oriented x3 and CN's II-XII intact bilaterally Psych Appearance: grossly normal and appropriate Assessment & Plan Assessment/Plan (1) Chest pain: PLAN: She presents with chest discomfort which is suggestive of unstable angina. my recommendation at this time especially with her last stress test within the last year is to proceed with a left heart catheterization. Depending on the findings further recommendations will be made. Addendum: Cardiac catheterization demonstrated the following: GIRALDO to the LAD is patent. Saphenous vein graft to the posterior descending artery is patent. Saphenous vein graft to obtuse marginal branch is occluded previously. Ostial left main coronary artery disease is noted. Left circumflex artery system appears to be stable compared to the previous. My recommendation at this time would be aggressive medical therapy, smoking cessation. No cardiac intervention to be undertaken at this time. (2) History of coronary artery bypass graft x 3: PLAN: She is status post coronary bypass surgery x 3 with a known occlusion of the saphenous vein graft to the obtuse marginal branch. Will reevaluate the others for further therapeutic measures. (3) Essential hypertension: PLAN: She does have a history of hypertension her blood pressure appears to be well-controlled at this time. (4) HLD (hyperlipidemia): QUALIFIERS: Hyperlipidemia type: unspecified Qualified Code(s): E 78.5 - Hyperlipidemia, unspecified PLAN: Her lipid profile is excellent at this particular time. (5) PAD (peripheral artery disease): PLAN: She does have peripheral vascular disease but is not experiencing any claudication symptoms at this particular time. Will review her medications.
--- NOTE | 2025-01-08 13:07 | CL.D_ITS ---
Patient Name: KINGSLEY GURROLA Study Date: 01/08/2025 Performing: Jorge Anderson MD Ht: 62 inches 157.48 cm : 1950 Wt: 165.8 lbs 75.1 kg Age: 74 Gender: female BSA: 1.76 PROCEDURE(S) PERFORMED DC04-([id number])LHC/COR/CABG CLINICAL PROFILE AND INDICATIONS Indications: Worsening Angina Heart Failure: None Stress/Imaging Stress/Image Study Performed: No CAD Presentations: Unstable angina. CONCLUSIONS Coronary artery disease with patent GIRALDO to the LAD, saphenous vein graft to posterior descending artery, diffusely diseased circumflex artery with obtuse marginal to the circumflex artery territory occluded. This was previously known. RECOMMENDATIONS Medical therapy DESCRIPTION OF PROCEDURE The patient arrived to the procedure lab. The risks and benefits of the procedure as well as a full description of our services here and current unavailability of surgical backup were fully explained to the patient and/or their significant other prior to the catheterization. The Timeout was completed, verifying the correct patient and procedure. The patient's procedural site was prepped and draped in the usual fashion. Local anesthetic was given subcutaneously to left radial region with Lidocaine 2%. Using a modified Seldinger technique, arterial access was obtained via the left radial artery, a 6Fr sheath was inserted. Left internal mammary artery graft to the LAD selective angiography was performed in multiple views using a 5 Fr. IM catheter. Left Coronary Artery selective angiography was performed in multiple views using a 5 Fr. JL4 catheter. Saphenous Vein graft to the RCA selective angiography was performed in multiple views using a 5 Fr. AR MOD catheter.The arterial sheath was pulled and a TR Band was applied for hemostasis w/ 10ml CORONARY ANGIOGRAPHY DOMINANCE: Right Dominant LEFT HEART ASSESSMENT Left Ventricular Ejection Fraction: by Echo 60 % NormalLeft Ventricular systolic function LEFT MAIN: Ostial 40% stenosis. Mild calcification present LEFT ANTERIOR DESCENDING ARTERY: This vessel gave her for first diagonal branch which is diffusely diseased and then in the midsegment appears to be totally occluded. CIRCUMFLEX ARTERY: Diffusely diseased vessel. 1st and 2nd obtuse marginal branch and diffusely diseased these are smaller vessels at the large obtuse marginal branches patent with no significant stenosis and an AV groove branch has mild diffuse 30 to 40% stenosis. RIGHT CORONARY ARTERY: is occluded GRAFTS: GIRALDO graft to the Mid LAD is patent Saphenous Vein graft to the RPDA is patent Saphenous Vein graft to the 2nd OM is totally occluded COLLATERAL FLOW: Collateral flow from Left to Right COMPLICATIONS No Complications PROCEDURE MEDICATIONS Versed 1 mg IV Fentanyl 50 mcg IV Versed 1 mg IV Oxygen: 2 L/min via nasal cannula Heparin given IA 01/08/2025 12:28:35 Verapamil 2.5mg, Ntg 100mcgs, 3000 units of Heparin given IA 01/08/2025 12:28:35 SUMMARY OF HEMODYNAMIC DATA Time AIR REST ECG 12:12:36 AO 93/48 (70) SA 12:34:50 Signed By Jorge Anderson MD On 01/08/2025 13:06:28 Jorge Anderson MD
--- NOTE | 2025-01-08 13:57 | PCM.DC.SUM ---
Providers Date of Admission: 01/07/25 Date of Discharge: 01/08/25 Primary Care Physician: Dr. Marielos Perla, Consultations 01/07/25 17:56 Consult: Cardiology Routine Consulting Provider: Jorge Anderson Reason for Consult: chest pain EMERGENT Consult: No MD Notified: Yes Date Notified: 01/07/25 Time Notified: 17:56 Method of Notification: Text Reason For Visit: CHEST PAIN Diagnosis Discharge Diagnosis (1) Chest pain: Status: Acute Code(s): R07.9 - Chest pain, unspecified (2) History of coronary artery bypass graft x 3: Status: Chronic Code(s): Z95.1 - Presence of aortocoronary bypass graft (3) Essential hypertension: Status: Chronic Code(s): I10 - Essential (primary) hypertension (4) HLD (hyperlipidemia): Status: Chronic Code(s): E78.5 - Hyperlipidemia, unspecified Qualifiers: Hyperlipidemia type: unspecified Qualified Code(s): E78.5 - Hyperlipidemia, unspecified (5) PAD (peripheral artery disease): Status: Chronic Code(s): I73.9 - Peripheral vascular disease, unspecified Medications at Discharge Home Medications aspirin 81 mg tablet,delayed release 81 mg PO DAILY heart health 12/15/13 duloxetine 60 mg capsule,delayed release 60 mg PO DAILY mental health 08/20/22 allopurinol 300 mg tablet 300 mg PO BID gout 11/05/23 cilostazol 100 mg tablet 100 mg PO BID anti platelet 11/05/23 oxycodone-acetaminophen 5 mg-325 mg tablet 1 tab PO TID PRN PRN pain 02/19/24 rosuvastatin 10 mg tablet See Rx Instructions .Route .COMPLEX cholesterol #90 TABLETS 04/17/24 furosemide 40 mg tablet 40 mg PO DAILY diuretic #90 TABLETS 06/19/24 glimepiride 4 mg tablet 4 mg PO BID 11/02/24 insulin aspar prt-insulin aspart 100 unit/mL (70-30) subcutaneous soln (Novolog Mix 70-30 U-100 Insuln) 20 unit subcut QAM diabetes 11/02/24 nitroglycerin 0.4 mg sublingual tablet 0.4 mg sublingual Q5-15M PRN chest pain #25 tabs 11/02/24 tirzepatide 10 mg/0.5 mL subcutaneous pen injector (Mounjaro) 10 mg subcut .every week 11/02/24 isosorbide mononitrate 60 mg tablet,extended release 24 hr 60 mg PO BID 01/07/25 omeprazole 20 mg capsule,delayed release 20 mg PO DAILY 01/07/25 losartan 25 mg tablet 12.5 mg (1/2 x 25 mg) PO DAILY #15 tabs 01/08/25 metoprolol tartrate 50 mg tablet 75 mg (1.5 x 50 mg) PO BID blood pressure #180 tabs 01/08/25 ranolazine 500 mg tablet,extended release,12 hr 500 mg PO BID #60 tabs 01/08/25 Hospital Course Operations None Procedures Cardiac catheterization, EKG and - (Chest x-ray/CTA chest) Summary of Care Provided Minutes Spent on Discharge: 37 Hospital Course: Mrs. Francis is a 74-year-old white female who presented to the emergency department at [facility] on 01/07/2025 with a chief complaint of chest pain. She has an extensive cardiac history with previous CABG in 2019 at [facility] as well as PVD, HTN/HPL, and DM-2. She complained of indigestion several weeks prior to admission and had chest pain that started around 9 AM on the morning of admission. She denied any concomitant shortness of breath, nausea, diaphoresis, or vomiting. She had been compliant with all of her home medications. Vital signs on presentation showed a temperature of 97.3, heart rate 116, respiratory was 18, blood pressure was 128/98, and pulse ox was 98% on room air. CBC showed a mild leukocytosis white count 11.9 but an unremarkable differential. Chemistry panel showed normal electrolytes with a BUN of 29 and a serum creatinine of 1.26. A D-dimer was obtained and found to be elevated at 0.83 and her initial troponin was 27. Follow-up troponin was found to be 28 on delta and a 4-hour troponin of 27. EKG was unremarkable for any acute ST-T wave changes concerning for acute ischemia. Chest x-ray showed no acute findings. CTA of her chest showed no significant abnormalities. She was admitted under observation status with consultation to cardiology. Cardiology evaluated patient and given her history and symptoms was taken for cardiac catheterization. Cardiac catheterization revealed GIRALDO to LAD being patent, SVG to the PDA was patent, and SVG to the obtuse marginal branch was occluded which appears to be chronic, ostial left main coronary artery disease was noted as well as left circumflex but both were stable compared to previous. Aggressive medical therapy was recommended and she is to continue home medication with addition of Ranexa for symptoms. Patient did report she is having intermittent tachycardia with heart rates in the 115's at home. Given this we increased her beta-jessica from 50 to 75 mg p.o. twice daily and decreased her losartan from 25 to 12.5 mg p.o. twice daily. I do feel she needs to continue her ARB given her diabetes for renal protection and this is why we did not discontinue this medication completely and made adjustments. I have asked her to follow-up with her primary care physician within the next week and with cardiology within the next month. Prescriptions for her increased dose of metoprolol, decrease dose of losartan, and Ranexa were sent to local pharmacy prior to discharge. Patient was discharged home on 01/08/2025 in stable condition. Discharge diagnoses: Chest pain-resolved Elevated troponin secondary to decreased renal clearance CKD stage IIIb Leukocytosis-resolved Chronic eosinophilia Essential hypertension Hyperlipidemia DM-2 PVD History of gout GERD HFrEF-recovered LV Osteoarthritis Obesity Tobacco abuse Physical Exam Const alert, oriented x3, no apparent distress, no limitations and well nourished; Negative for average body habitus or healthy appearing Constitutional Narrative: Very pleasant, older, white female, sitting up in bed, daughter at bedside, appears comfortable, nontoxic, very pleasant General Appearance: cooperative, comfortable, well kempt and well developed Exam Limitations: no limitations Nutritional Appearance: obese HEENT normocephalic, head/scalp atraumatic, hearing grossly normal bilaterally and moist oral mucous membranes HEENT Narrative: Mallampati 3-4, no thrush Eyes conjunctivae normal Eyes Narrative: No scleral icterus Neck supple Neck Narrative: Neck is short thick, trachea midline Resp normal respiratory effort, no retractions, no use of accessory muscles and clear to auscultation bilaterally Resp Narrative: Diffusely diminished but clear Auscultation: Negative for rales, rhonchi or wheezes Cardio regular rate, regular rhythm, S1 normal heart sound, S2 normal heart sound, no murmurs, no rub and no gallops GI normal to inspection, nondistended, normoactive bowel sounds, soft to palpation and non-tender Extremity no clubbing, cyanosis or edema Extremity Narrative: 1+ pedal pulses, 2+ left radial pulse, compression device right radial artery status postcardiac catheterization Skin skin turgor normal, no jaundice, no petechiae and no mottling Neuro oriented x3, moves all extremities and no focal motor deficits Speech: speech normal Psych affect normal Psych Narrative: Very pleasant, eye contact is good and patient interacts appropriately Weight / BMI Weight Weight: 75.1 kg Body Mass Index (BMI) 30.2 ABG / Lab / Microbiology Data 01/08/25 04:49 01/07/25 12:32 Laboratory: Laboratory Results - last 24 hr 01/07/25 12:32: WBC Cancelled, Corrected WBC Cancelled, RBC Cancelled, Hgb Cancelled, Hct Cancelled, MCV Cancelled, MCH Cancelled, MCHC Cancelled, RDW Std Deviation Cancelled, RDW Coeff of Dede Cancelled, Plt Count Cancelled, MPV Cancelled, Immature Gran % (Auto) Cancelled, Neut % (Auto) Cancelled, Lymph % (Auto) Cancelled, [place] % (Auto) Cancelled, Eos % (Auto) Cancelled, Baso % (Auto) Cancelled, Absolute Neuts (auto) Cancelled, Absolute Lymphs (auto) Cancelled, Total Counted Cancelled, Neutrophils % (Manual) Cancelled, Band Neutrophils % Cancelled, Lymphocytes % (Manual) Cancelled, Monocytes % (Manual) Cancelled, Eosinophils % (Manual) Cancelled, Basophils % (Manual) Cancelled, Metamyelocytes % Cancelled, Myelocytes % Cancelled, Promyelocytes % Cancelled, Blast Cells % Cancelled, Plasma Cell % (Manual) Cancelled, Other Cells % Cancelled, Nucleated RBC % Cancelled, Nucleated RBCs/100 WBC Cancelled, Differential Comment Cancelled, Diff Path Review Cancelled, Hypersegmented Neuts Cancelled, Atypical Lymphocytes Cancelled, Reactive Lymphocytes Cancelled, Smudge Cells Cancelled, Toxic Granulation Cancelled, Toxic Vacuolation Cancelled, Dohle Bodies Cancelled, Isatu Rods Cancelled, Platelet Estimate Cancelled, Plt Morphology Comment Cancelled, RBC Morphology Cancelled 01/07/25 12:32: RBC Morphology Cancelled, Polychromasia Cancelled, Hypochromasia Cancelled, Basophilic Stippling Cancelled, Anisocytosis Cancelled, Microcytosis Cancelled, Macrocytosis Cancelled, Spherocytes Cancelled, Sickle Cells Cancelled, Target Cells Cancelled, Tear Drop Cells Cancelled, Ovalocytes Cancelled, Stomatocytes Cancelled, Johnson-Narciso Pena Bodies Cancelled, Johan Cells Cancelled, Bite Cells Cancelled, Crenated Cell Cancelled, Acanthocytes (Spur) Cancelled, Rouleaux Cancelled, Schistocytes Cancelled 01/07/25 14:31: PT 14.2, INR 1.1, APTT 26.9, Troponin T Hi Sens 2 Hr 28 H 01/07/25 16:20: Troponin T Hi Sens 4Hr 27 H 01/07/25 21:57: POC Glucose 194 H 01/08/25 04:49: WBC 10.4, RBC 3.99 L, Hgb 12.2, Hct 37.3, MCV 93.5, MCH 30.6, MCHC 32.7, RDW Std Deviation 51.2 H, RDW Coeff of Dede 15.0 H, Plt Count 282, MPV 11.0, Immature Gran % (Auto) 0.500, Neut % (Auto) 68.5, Lymph % (Auto) 13.2 L, [place] % (Auto) 10.8 H, Eos % (Auto) 6.3 H, Baso % (Auto) 0.7, Absolute Neuts (auto) 7.1, Absolute Lymphs (auto) 1.37, Nucleated RBC % 0 01/08/25 06:41: POC Glucose 189 H 01/08/25 11:17: POC Glucose 169 H Radiography Diagnostic Testing: Radiology Impression Chest CTA 01/07/25 13:24 IMPRESSION: No significant abnormality Reading [facility] Instructions Discharge Activity: Return to Normal Activity Lifting Restrictions: Avoid lifting greater than 10 pounds with the right hand for the next 72 hr DC O2, CPAP, BIPAP Needs Home O2 Discharge instructions: No Meaningful Use Info Meaningful Use Meaningful Use Diagnoses (Choose all that apply): None applicable Discharge Plan Admission Admit Date/Time: 01/07/25 15:00 Primary Reason for Your Visit: Chest pain Attending Provider: Rupali Lott Primary Care Provider: Marielos Perla Consulting Providers: Jorge Anderson; Maritza Suresh Instructions Additional Instructions / Restrictions: 1. Please notice the changes in your blood pressure medicine with a decrease in your losartan from 25 mg to 12.5 mg and an increase in your metoprolol from 50 mg to 75 mg. I did this to make sure your blood pressure does not drop too low and hopefully help with your heart rate. Discharge Orders/Prescriptions Prescriptions: New ranolazine 500 mg Tablet Extended Release 12 Hr 500 mg PO BID Qty: 60 1RF Continued duloxetine 60 mg capsule,delayed release(DR/EC) 60 mg PO DAILY insulin asp prt-insulin aspart [Novolog Mix 70-30 U-100 Insuln] 100 unit/mL (70-30) solution 20 unit subcut QAM Patient Comments: 20-25 cilostazol 100 mg tablet 100 mg PO BID allopurinol 300 mg tablet 300 mg PO BID glimepiride 4 mg tablet 4 mg PO BID Mounjaro 10 mg/0.5 mL pen injector 10 mg subcut .every week Patient Comments: [NO ORIGINAL SIG] nitroglycerin 0.4 mg tablet, sublingual 0.4 mg sublingual Q5-15M PRN (Reason: chest pain) Qty: 25 3RF Rx Instructions: do not exceed 3 doses per episode aspirin 81 MG tablet 81 mg PO DAILY isosorbide mononitrate 60 mg tablet extended release 24 hr 60 mg PO BID omeprazole 20 mg capsule,delayed release(DR/EC) 20 mg PO DAILY oxycodone-acetaminophen 5-325 mg tablet 1 tab PO TID PRN PRN (Reason: pain) rosuvastatin 10 mg tablet See Rx Instructions .ROUTE .COMPLEX Qty: 90 3RF Dose Instruction: TAKE 1 TABLET BY MOUTH EVERY DAY Rx Instructions: TAKE 1 TABLET BY MOUTH EVERY DAY furosemide 40 mg tablet 40 mg PO DAILY Qty: 90 3RF Changed losartan 25 mg tablet 12.5 mg PO DAILY Qty: 15 0RF metoprolol tartrate 50 mg tablet 75 mg PO BID Qty: 180 1RF Referrals / Follow Up: Jorge Anderson MD [Med Staff - Active Staff, Cardiology] - Within 1 Month Marielos Perla DO [Primary Care Provider, Family Practice] - Within 1 Week Disposition Disposition (needs filled in before D/C Order can be placed): Home, Self Care Charges/Coding Visit Charges Inpatient E&M: 08412 Disch Hosp >30min
--- NOTE | 2025-01-08 15:09 | CASEMGMT ---
Patient has order for discharge. RN CM in to discuss needs at discharge. Patient denies needs or help at discharge. Patient had no further questions or concerns.
--- NOTE | 2025-01-08 15:15 | PHA.DC_ITS ---
Pharmacy [facility] Counseling Pharmacy Service has performed discharge medication reconciliation and counseling for this patient. 1. RANOLAZINE 500MG PO BID 2. LOSARTAN AND METOPROLOL DOSE CHANGES The patient's discharge medication list was reviewed for discrepancies and discrepancies were resolved. The patient was counseled on the following discharge medications and changes in medications for homegoing were reviewed. The Reason for Use, instructions for use, and potential side effects were reviewed for all new medications. The patient's questions regarding all of their medications were answered. The patient was able to verbally demonstrate an understanding of their discharge medications. Medications at Discharge Home Medications aspirin 81 mg tablet,delayed release 81 mg PO DAILY heart health 12/15/13 duloxetine 60 mg capsule,delayed release 60 mg PO DAILY mental health 08/20/22 allopurinol 300 mg tablet 300 mg PO BID gout 11/05/23 cilostazol 100 mg tablet 100 mg PO BID anti platelet 11/05/23 oxycodone-acetaminophen 5 mg-325 mg tablet 1 tab PO TID PRN PRN pain 02/19/24 rosuvastatin 10 mg tablet See Rx Instructions .Route .COMPLEX cholesterol #90 TABLETS 04/17/24 furosemide 40 mg tablet 40 mg PO DAILY diuretic #90 TABLETS 06/19/24 glimepiride 4 mg tablet 4 mg PO BID diabetes 11/02/24 insulin aspar prt-insulin aspart 100 unit/mL (70-30) subcutaneous soln (Novolog Mix 70-30 U-100 Insuln) 20 unit subcut QAM diabetes 11/02/24 nitroglycerin 0.4 mg sublingual tablet 0.4 mg sublingual Q5-15M PRN chest pain #25 tabs 11/02/24 tirzepatide 10 mg/0.5 mL subcutaneous pen injector (Mounjaro) 10 mg subcut .every week diabetes 11/02/24 isosorbide mononitrate 60 mg tablet,extended release 24 hr 60 mg PO BID heart 01/07/25 omeprazole 20 mg capsule,delayed release 20 mg PO DAILY reflux 01/07/25 losartan 25 mg tablet 12.5 mg (1/2 x 25 mg) PO DAILY #15 tabs 01/08/25 metoprolol tartrate 50 mg tablet 75 mg (1.5 x 50 mg) PO BID blood pressure #180 tabs 01/08/25 ranolazine 500 mg tablet,extended release,12 hr 500 mg PO BID #60 tabs 01/08/25
== END 2025-01-08 16:48 | disposition home or self-care (01) ==
LOC: ED 15:06 → PCU 15:28
PROVIDERS: Admitting Provider Student in an Organized Health Care Education/Training Program; Emergency Provider Student in an Organized Health Care Education/Training Program; PCP Family Medicine; Visit Provider Internal Medicine
DX: I25.110 Atherosclerotic heart disease of native coronary artery with unstable angina pectoris (principal); I13.0 Hypertensive heart and chronic kidney disease with heart failure and stage 1 through stage 4 chronic kidney disease, or unspecified chronic kidney disease; I50.22 Chronic systolic (congestive) heart failure; I24.0 Acute coronary thrombosis not resulting in myocardial infarction; E11.51 Type 2 diabetes mellitus with diabetic peripheral angiopathy without gangrene; E11.22 Type 2 diabetes mellitus with diabetic chronic kidney disease; N18.32 Chronic kidney disease, stage 3b; K21.9 Gastro-esophageal reflux disease without esophagitis; M10.9 Gout, unspecified; E78.5 Hyperlipidemia, unspecified; Z79.899 Other long term (current) drug therapy; D72.10 Eosinophilia, unspecified; Z79.84 Long term (current) use of oral hypoglycemic drugs; Z79.02 Long term (current) use of antithrombotics/antiplatelets; F17.210 Nicotine dependence, cigarettes, uncomplicated; Z79.85 Long-term (current) use of injectable non-insulin antidiabetic drugs; Z82.49 Family history of ischemic heart disease and other diseases of the circulatory system; Z95.1 Presence of aortocoronary bypass graft; Z79.82 Long term (current) use of aspirin; R79.89 Other specified abnormal findings of blood chemistry; E66.9 Obesity, unspecified; Z68.30 Body mass index [BMI] 30.0-30.9, adult
CPT/HCPCS: 36415; 71046; 71275; 80048; 82962; 84484; 85025; 85379; 85610; 85730; 93005; 93455; 96365; 96366; 96376; 99152; 99153; 99221; 99285; C1894; Q9967; A4216; C1769; G0378

== ENCOUNTER → 2025-01-10 | Outpatient (CLI) | payer MEDICARE, SELFPAY ==
[2019-11-14 08:38] VITALS: BMI 31.6
--- NOTE | 2025-01-10 | EMB_PTH ---
PATIENT: KINGSLEY GURROLA [id number] AGE/SX: 74/F ROOM: RE01/10/[address]: JOHNATHON Dos Santos : 1950 BED: DIS: 01/10/2025 SPEC #: [id number] RECD: 01/10/25 12:09 STATUS: LISBETH RELinda #: [id number] BETO: 01/10/25 00:[address]: Lamar Olivera NP DEPT: SURGICAL PATHOLOGY RECD BY: Gustavo Sarabia ENTERED: 01/10/25 14:29 SP TYPE: ENDOM BX/C KOBI DR: Dr. Marielos Perla, DO Tissues: A - Endometrium, NOS Procedures: Surgery Specimen Level IV HEADER OPERATION: Endometrial biopsy PRE-OP DIAGNOSIS: Post menopausal bleeding TISSUE SUBMITTED: A- Endometrial lining MICROSCOPIC DIAGNOSIS A. Endometrium, biopsy: * Fragments of mature, well glycogenated, benign squamous mucosa. * Fragments of inflamed endocervical mucosa. * No endometrium is observed. MICROSCOPIC DESCRIPTION Slides are reviewed. GROSS DESCRIPTION A. Received in formalin labeled the patient's name and date of is a 2.7 x 1.0 x 0.2 cm aggregate of mucoid material and flecks of pink-red tissue. Entirely submitted in 1 cassette. VT 01/10/2025 CPT:92562
== END | disposition home or self-care (01) ==
LOC: LABSPEC 11:51
PROVIDERS: PCP Family Medicine; Visit Provider Nurse Practitioner Women's Health
DX: N95.0 Postmenopausal bleeding (principal)
CPT/HCPCS: 88305

== ENCOUNTER → 2025-01-22 | Outpatient (CLI) | payer MEDICARE, SELFPAY ==
[2019-11-14 08:38] VITALS: BMI 31.6
--- NOTE | 2025-01-22 07:08 | CT_ITS ---
PROCEDURE: CTA ABD W/RUNOFF W/WO CONTRAST 01/22/2025 REASON FOR EXAM: PAD WITH CLAUDICATION/REST PAIN TECHNIQUE: Procedure Code: [id number] Modality: CT Procedure: CTA ABD W/RUNOFF W/WO CONTRAST One or more dose reduction techniques were used (e.g., Automated exposure control, adjustment of the mA and/or kV according to patient size, use of iterative reconstruction technique). Multiplanar Sagittal and Coronal images were obtained. 3D and or MIPS post processing was performed CONTRAST: Isovue 370 VOLUME: 100 mL RADIATION DOSE SUMMARY: CTDlvol: 25 mGy DLP: 1454 mGycm COMPARISON: None FINDINGS: Aorta: The timing and quality of the contrast bolus is diagnostic. There is no evidence of aortic rupture, dissection or aneurysm. Severe calcified atherosclerotic plaque is seen. Thoracoabdominal aorta 23 mm; infrarenal aorta 17 mm. Distal aorta 17 mm. Iliac Arteries: No aneurysm or dissection. Heavy atherosclerotic plaque is present. There is possibly very short segment flow limitation just proximal to the takeoff of the deep iliac on the right. Celiac: Mild plaque of the origin. No stenosis. SMA: Mild plaque of the origin. No stenosis. EJSÚS : Patent Right Renal: Less than 50% stenosis Left Renal: Less than 50% stenosis Lower Extremity Runoff (Bilateral): Common Femoral Arteries: Atherosclerotic. Superficial Femoral Arteries: Patent on the right with short segment flow- limiting stenosis in the proximal right SFA. Complete thrombosis of the left SFA with partial reconstitution within Johny's canal. Profunda Femoris Arteries: Patent bilaterally Popliteal Arteries: At least 50% stenosis bilaterally; the plaque is very irregular and very short segment stenoses may be present.. Tibial and Peroneal Arteries: Short segment stenosis proximal left anterior tibial. Marked irregularity of the proximal peroneal is bilaterally. Very short segment stenoses may be present. Distal Runoff: Very small caliber. Extravascular Findings: The liver, adrenals, spleen, pancreas, kidneys are unremarkable. Gallbladder is not seen and may be surgically absent. Stomach, small bowel and colon are unremarkable. No free fluid, free air or lymphadenopathy. Incidental note is made of a retroaortic left renal vein, a normal variant. Bladder, uterus and adnexa are unremarkable. CT/CTA Abd w/Runoff W/WO Contrast IMPRESSION: 1. Advanced atherosclerotic plaque of the aorta without aneurysm, dissection o r rupture. 2. Short segment stenosis distal right common iliac artery just proximal to th e takeoff of the deep iliac. 3. Short segment stenosis proximal right SFA. Complete thrombosis left SFA wi th reconstitution at Johny's canal. 4. Very irregular plaque at the popliteal arteries, proximal peroneal arteries . Short segment stenosis proximal left anterior tibial. Reading Location: [id number]
--- OUTSIDE RECORDS SUMMARY | 2025-01-22 07:16 | XMS RPT_ITS | CCD ---
Author Organization [facility] Care Team Providers Care Pig Conveyor Operator Name Role Phone Lianet Peters Primary Care Provider Dr. Marielos Perla Primary Care Provider Dr. Marielos Perla Referring Provider MD Bruce Dubon Attending Provider [phone] Marielos Perla Primary Care Provider Dr. Marielos Perla Referring Provider Huy FIELD TRAINING MANAGER, FIELD TRAINING MANAGER-C Kaley Attending Provider SKYLER Thakkar Attending Provider Dr. Marielos Perla DO Primary Care Provider Dr. Marielos Perla DO Referring Provider [phone] Elizabeth LOCKHART-CCharlie Attending Provider Mike FIELD TRAINING MANAGER-CRand Attending Provider Mike FIELD TRAINING MANAGER-CRnad Referring Provider [phone] Marielos Perla DO Primary Care Provider Dr. Marielos Perla DO Referring Provider [phone] Jennifer Thakkar Attending Provider Jennifer Thakkar Referring Provider Dr. Marielos Perla DO Attending Provider [phone] Ava Walker Attending Provider Ava Walker Referring Provider Brian ROMERO, Dr. Rosenthal Attending Provider [phone] Marielos Perla DO Primary Care Physician Mike FIELD TRAINING MANAGER-C, Rand Attending Physician Jennifer Thakkar Attending Physician Pan LYLE, Dr. Arceo Attending Physician Ava Walker Attending Physician Brian ROMERO, Dr. Rosenthal Attending Physician Landy ROMERO, Dr. Parker Emergency Department Physici an Unavailable Sathya ROMERO, Dr. Maritza Kelly Admitting Physician Sathya ROMERO, Dr. Maritza Kelly Nurse Practitioner Monica ROMERO, Dr. Patel Nurse Practitioner Oren LYLE, Dr. Zapien Attending Physician Monica ROMERO, Dr. Patel Attending Physician Oren LYLE, Dr. Zapien Nurse Practitioner Jarod FIELD TRAINING MANAGER-C, Lamar Attending Physician Pan LYLE, Dr. Arceo Primary Care Physician Lidia Fleming Attending Physician Malys, Marielos Attending Unavailable Malys, Marielos Primary Care Unavailable Malys, Marielos Referring Unavailable Lamar Olivera Attending Unavailable Malys, Marielos Primary Care Unavailable Rupali Lott Attending Unavailable Koram, Maritza Leticia Admitting Unavailable Malys, Marielos Primary Care Unavailable Monica, Boise Consulting Unavailable Koram, Maritza Leticia Consulting Unavailable Young, Ava Attending Unavailable Malys, Marielos Primary Care Unavailable Malys, Marielos Referring Unavailable Malys, Marielos Primary Care Unavailable Young, Ava Attending Unavailable Malys, Marielos Referring Unavailable Malys, Marielos Referring Unavailable Malys, Marielos Primary Care Unavailable Lidia Santiago Attending Unavailable Jarod, Lamar Attending Unavailable Malys, Marielos Referring Unavailable Malys, Marielos Primary Care Unavailable Jopperi, Grant Consulting Unavailable Malys, Marielos Primary Care Unavailable Jopperi, Grant Admitting Unavailable Monica, Boise Attending Unavailable Monica, Boise Consulting Unavailable Kittoe, Kaushik Consulting Unavailable Jopperi, Grant Consulting Unavailable Jopperi, Grant Admitting Unavailable Kittoe, Kaushik Attending Unavailable Malys, Marielos Primary Care Unavailable Monica, Jorge Consulting Unavailable Jarod, Lamar Referring Unavailable Belton, Lamar Attending Unavailable Malys, Marielos Primary Care Unavailable Belton, Lamar Attending Unavailable Belton, Lamar Referring Unavailable Jack, Lidia Consulting Unavailable Malys, Marielos Primary Care Unavailable Koram, Maritza Leticia Admitting Unavailable Malys, Marielos Primary Care Unavailable Monica, Jorge Attending Unavailable Monica, Jorge Consulting Unavailable Koram, Maritza Leticia Consulting Unavailable Oren, Rupali Consulting Unavailable Koram, Maritza Leticia Attending Unavailable Oren, Rupali Attending Unavailable Malys, Marielos Primary Care Unavailable Monica, Jorge Attending Unavailable Young, Ava Attending Unavailable Young, Ava Referring Unavailable Malys, Marielos Primary Care Unavailable Jennifer Bailey Referring Unavailabl e Malys, Marielos Primary Care Unavailable Jennifer Bailey Attending Unavailabl e BaileyJennifer Referring Unavailabl e BaileyJennifer Attending Unavailabl e Malys, Marielos Primary Care Unavailable Malys, Marielos Primary Care Unavailable Mike, Rand Attending Unavailable Mike, Rand Referring Unavailable Malys, Marielos Primary Care Unavailable Malys, Marielos Attending Unavailable Malys, Marielos Referring Unavailable Malys, Marielos Primary Care Unavailable Roof FIELD TRAINING MANAGER, Charlie Cobos Attending Unavailable Malys, Marielos Referring Unavailable KitcharleseKaushik Attending Unavailable Young, Ava Referring Unavailable Malys, Marielos Primary Care Unavailable BrianGrant Attending Unavailable Roof FIELD TRAINING MANAGER, Charlie Cobos Attending Unavailable Malys, Marielos Primary Care Unavailable Malys, Marielos Referring Unavailable BaileyJennifer garcia Attending Unavailabl e Malys, Marielos Primary Care Unavailable Malys, Marielos Referring Unavailable Jopperi, Grant Attending Unavailable Young, Ava Attending Unavailable Young, Ava Referring Unavailable Malys, Marielos Primary Care Unavailable Allergies Allergy Classification Reported Allergen(s) Allergy Type Date of Onset Reaction(s) Facility (20 sources) ceFAZolin Drug Allergy 9 Hives, Shortness Of Breath [place] (20 sources) Codeine Drug Allergy 9 Hives, Shortness Of Breath [place] (20 sources) Morphine Drug Allergy 9 Hives, Shortness Of Breath [place] (20 sources) Naloxone Drug Allergy 9 Hives, Shortness Of Breath [place] (20 sources) Pentazocine Drug Allergy 9 Hives, Shortness Of Breath [place] (20 sources) Acetaminophen Drug Allergy 2 Nausea [facility] (20 sources) atorvastatin Drug Allergy 2 Severe myalgias [facility] (20 sources) Pentazocine; Translations: [pentazocine lactate] Drug Allergy 2 Shortness of breath [facility] (1 source) Acetaminophen Drug Allergy 5 [facility] (1 source) atorvastatin Drug Allergy 5 [facility] (1 source) ceFAZolin Drug Allergy 5 [facility] (1 source) Codeine Drug Allergy 5 [facility] (1 source) Morphine Drug Allergy 5 [facility] (1 source) Naloxone Drug Allergy 5 [facility] (1 source) Pentazocine Drug Allergy 5 [facility] Medications Current Medications Medication Drug Class(es) [...] from all sources in 24 hours. Post-op albuterol 0.833 mg/ml / ipratropium bromide 0.167 mg/ml inhalant solution (2 sources) Anticholinergic, beta2-Adrenergic Agonist Start: 03-02-2019 ipratropium-albuter ol (DUONEB) nebulizer solution 1 ampule Start: 02-27-2019 End: 02-28-2019 1 ampule, Inhalation, EVERY 4 HOURS WHILE AWAKE, First dose on Wed02/27/19 at 2000 allopurinol 300 mg oral tablet (14 sources) Xanthine Oxidase Inhibitor Start: 11-05-2023 take 1 tablet by mouth twice daily aspirin 81 mg delayed release oral tablet (20 sources) Platelet Aggregation Inhibitor, Nonsteroidal Anti-inflammatory Drug Start: 02-22-2019 End: 02-26-2019 aspirin chewable tablet 81 mg Start: 12-15-2013 take 1 tablet by mouth once da rupert Start: 02-16-2006 take 1 tablet by mouth [...] take 1 tablet by mouth twice daily Start: 09-25-2021 End: 08-20-2022 take 1 tablet by mouth twice daily Cilostazol 100 mg tablet Discontinued 100 mg PO TWICE A DAY 60 September 25, 2021 12:00am August 20, 2022 10:00am docusate sodium 50 mg / sennosides, prison 8.6 mg oral tablet (2 sources) Start: 02-27-2019 take 1 tablet by mouth twice daily sennosides-docusate sodium (SENOKOT-S) 8.6-50 MG tablet Take 1 tablet by mouth 2 times daily For stool softener 0 03/03/2019 Active DULoxetine 60 mg delayed release oral capsule (20 sources) Serotonin and Norepinephrine Reuptake Inhibitor Start: 08-20-2022 take 1 capsule by mouth once daily Start: 09-25-2021 End: 08-20-2022 take 1 capsule [...] take 1 tablet by mouth twice daily Start: 08-20-2022 End: 02-21-2024 take 1 tablet [...] suspension (20 sources) Insulin Analog Start: 11-02-2024 Start: 03-09-2024 End: 11-02-2024 Insulin Asp Prt-Insulin [...] 1 vial 3 03/03/2019 03/03/2019 Discontinued (REORDER) 24 hr isosorbide mononitrate 60 mg extended release oral tablet (20 sources) Nitrate Vasodilator Start: 01-07-2025 take 1 tablet by kenrick th twice daily, then take 1 tablet by mouth every twenty-four hours Start: 06-04-2021 End: 11-02-2024 take 1 tablet [...] 06, 2021 1:00am March 19, 2021 6:28pm losartan potassium 25 mg ora l tablet (20 sources) Angiotensin 2 Receptor Jessica Start: 01-08-2025 End: 01-08-2025 Start: 01-07-2025 End: 01-08-2025 take 1 tablet by mouth once daily Losartan 25 mg tablet Discontinued 25 mg PO DAILY January 07, 2025 12:00am January 08, 2025 2:05pm Start: 02-21-2024 End: 11-02-2024 take 1 tablet by mouth once daily Losartan 25 mg tablet Discontinued 25 mg PO DAILY 90 May 15, 2024 11:17am November 02, 2024 10:23am 50 ml magnesium sulfate 40 mg/ml injection (1 source) Start: 02-27-2019 2 g, Intravenous, at 25 mL/h r, Administer over 2 Hours, PRN, Other, hypomagnesemia, Starting Wed02/27/19 at 1635 Via central line - If [...] l o c k e r Start: 01-08-2025 End: 01-08-2025 Start: 12-03-2022 End: 01-08-2025 take 1 tablet by mouth twice daily Metoprolol Tartrate 50 mg tablet Discontinued 50 mg PO TWICE A DAY 180 3 December 11, 2024 3:04pm January 08, 2025 2:05pm blood pressure Start: 03-28-2019 End: 12-03-2022 take [...] days, Post-op nitroglycerin 0.4 mg sublingual tablet (20 sources) Nitrate Vasodilator Start: 05-26-2021 End: 11-02-2024 Start: 05-26-2021 Nitroglycerin Active 0.4 MG SL every 5 to 15 minutes 90 May 26, 2021 1:00am do not exceed 3 doses per episode omeprazole 20 mg delayed release oral capsule (6 sources) Proton Pump Inhibitor Start: 01-07-2025 take 1 capsule by mouth once daily 2 ml ondansetron 2 mg/ml injection (1 source) Serotonin-3 Receptor Antagonist Start: 02-27-2019 4 mg, Intravenous, EVERY 8 HOURS PRN, Nausea, Starting Wed02/27/19 at 1635, Post-op 12 hr ranolazine 500 mg extended release oral tablet (6 sources) Anti-anginal Start: 01-08-2025 take 1 tablet by mouth twice daily Tirzepatide (7 sources) Start: 11-02-2024 Start: 11-02-2024 Tirzepatide (M ounjaro) 10 mg/0.5 mL pen injector Active 10 mg SC .every week November 02, 2024 12:00am Complies with drug therapy Tirzepatide (Mounjaro) 10 mg /0.5 mL pen injector (6 sources) Start: 11-02-2024 Tirzepatide (M ounjaro) 10 mg/0.5 mL pen injector Active 10 mg SC .every week November 02, 2024 12:00am Completed/Discontinued Medications Medication Drug Class(es) Dates Sig (Normalized) Sig (Original) acetaminophen 325 mg / oxyCODONE hydrochloride 5 mg oral tablet (20 sources) Opioid Agonist Start: 02-19-2024 End: 01-18-2025 Oxycodone-Acetamino phen 5-325 mg tablet Discontinued 1 {tbl} PO 3 TIMES DAILY NEEDED as needed for pain February 19, 2024 12:00am January 18, 2025 9:31am Start: 03-29-2022 End: 02-19-2024 Oxycodone-Acetaminophen (Per cocet) [...] 5-325 MG per tablet Indications: CAD in [place] artery , S/P CABG x 3 Take 1 tablet by mouth every 6 hours as needed for Pain for up to 7 days. 28 tablet 0 03/03/2019 03/10/2019 Active Start: 02-27-2019 oxyCODONE-acet aminophen (PERCOCET) 5-325 MG per tablet 1 tablet albuterol 1 mg/ml inhalant solution (1 source) [...] Start: 02-28-2019 take 1 tablet by kenrick once daily atorvastatin (LIPITOR) 80 MG tablet [...] 75 mg colchicine 0.6 mg oral tablet (19 sources) Start: 08-20-2022 End: 11-05-2023 take 1 tablet by mouth once daily Colchicine 0.6 mg tablet Discontinued 0.6 mg PO DAILY August 20, 2022 12:00am November 05, 2023 11:35am 12 hr dextromethorphan hydrobromide 30 mg / guaiFENesin 600 mg extended release oral tablet (1 source) Uncompetitive F-yaeqrv-V-asparta te Receptor Antagonist, Sigma-1 Agonist Start: 02-25-2019 End: 02-27-2019 dextromethorphan -guaiFENesin (MUCINEX DM) 30-600 MG per extended release tablet 1 tablet doxycycline monohydrate 100 mg oral capsule (14 sources) Tetracycline-class Drug Start: 10-01-2023 End: 11-05-2023 take 1 capsule by mouth twice daily Doxycycline Monohydrate 100 mg capsule Discontinued 100 mg PO TWICE A DAY October 01, 2023 12:00am Elizabeth 19th, 2024 11:35am 0.4 ml enoxaparin sodium 100 mg/ml [...] Discontinued 40 mg PO TWICE A WEEK April 21, 2019 6:16pm June 05, 2019 [...] interventions based on BGT and call the [employer]. o Maximum insulin infusion drip rate may not exceed 30 units/hr; Insulin drip may NOT be discontinued unless approved by [employer]. Discontinue all subcutaneous Insulin orders (if patient is on subcutaneous insulin). Post-op linagliptin 5 mg oral tablet (20 sources) Dipeptidyl Peptidase 4 Inhibitor Start: 07-15-2020 End: 01-16-2021 take 1 tablet by mouth once daily Linagliptin 5 mg tablet Discontinued 5 mg PO DAILY July 15, 2020 12:00am January 16, 2021 10:25am lisinopril 5 mg oral tablet (1 source) Angiotensin Converting Enzyme Inhibitor Start: 02-22-2019 End: 02-26-2019 lisinopril (PRINIVIL;ZESTRIL) tablet 10 mg metFORMIN hydrochloride 1000 mg oral tablet (20 sources) Biguanide Start: 02-20-2019 End: 03-28-2019 take [...] DAILY March 28, 2019 12:00am Multivitamin capsule (14 sources) Start: 03-28-2019 End: 08-20-2022 Multivitamin capsule Discontinued 1 NMA PO DAILY March 28, 2019 1:00am August 20, 2022 10:00am nitroPRUSSide (NIPRIDE) 50 mg in dextrose 5 % 250 mL infusion (1 source) Start: 02-27-2019 End: 03-01-2019 0.1 mcg/kg/min 79.8 kg (2.394 mL/hr, rounded to 2.4 mL/hr), Intravenous, at 2.4 mL/hr, CONTINUOUS PRN, Initiate if SBP greater 130 mmHg, Starting 02/27/19 at 1635 Initial rate: 0.1 mcg/kg/min Ma [...] March 28, 2019 2:41pm polyethylene glycol 3350 [id number] mg powder for oral solution (20 sources) [...] over 60 Minutes, PRN, Other, hypokalemia, Starting 02/27/19 at 1635 Via central line - do [...] mL/hr), Intravenous, at 4.8 mL/hr, CONTINUOUS, Starting 02/27/19 at 1700 For sedation, titrate to RASS [...] hours. Post-op quinapril 20 mg oral tablet (20 sources) Angiotensin Converting Enzyme Inhibitor Start: 06-15-2006 [...] 1 TABLET BY MOUTH EVERY DAY sennosides, prison 8.6 mg oral tablet (20 sources) Start: [...] 2020 10:46am SITagliptin 50 mg oral tablet (20 sources) Dipeptidyl Peptidase 4 Inhibitor Start: 01-08-2020 [...] 20 ml/hr to SP(introducer) and WT on [place] Jose Catheter; once [place] discontinued run at 20 ml/hr through SP(introducer) Post-op Start: 02-22-2019 End: 02-27-2019 10 mL, Intravenous, EVERY 12 HOURS SCHEDULED (2 times per day), First dose on Wed02/27/19 at 2100, Post-op Tirzepatide (7 sources) Start: 06-05-2024 End: 11-02-2024 Tirzepatide [...] perineal pain] Onset: 12-05-2024 Episodic Cardiac dysrhythmias (20 sources) Palpitations; Translations: [Palpitations] 11-18-2022 Episodic Chronic obstructive pulmonary disease and bronchiectasis (14 sources) Bronchitis; Translations: [Bronchitis, not specified as acute or chronic] 10-09-2023 Episodic Complication of device; implant or graft (20 sources) Loosening of knee joint prosthesis; Translations: [Mechanical loosening of other internal prosthetic joint, initial encounter] 05-19-2021 Episodic Conditions associated with dizziness or vertigo (20 sources) Dizziness; Translations: [Dizziness and giddiness] 01-16-2021 Episodic Congestive heart failure; nonhypertensive (2 sources) Systolic heart failure; Translations: [HFrEF (heart failure with reduced ejection fraction)] 02-23-2019 Chronic Coronary atherosclerosis and other heart disease (20 sources) Coronary arteriosclerosis in [place] artery; Translations: [Coronary atherosclerosis] Onset: 02-22-2019 03-03-2019 Chronic Comment on above: CABG x3 with GIARLDO to LAD, SVG to OM 2, and SVG to PDA of RCA on 02/27/[address] Taylor at [facility]; Coronary atherosclerosis and other heart disease (9 [...] (20 sources) Hyperlipidemia; Translations: [Hyperlipidemia, unspecified] Onset: 01-19-2025 03-28-2019 Chronic Esophageal disorders (20 sources) Gastroesophageal reflux disease; Translations: [Gastro-esophageal reflux disease without esophagitis] 02-21-2019 Chronic Essential hypertension (20 sources) Hypertensive disorder; Translations: [Essential hypertension] Onset: 01-19-2025 02-23-2019 Chronic Fluid and electrolyte disorders (2 sources) Hyperkalemia; Translations: [Hyperkalemia] 03-03-2019 Episodic Menopausal disorders (1 source) Postmenopausal bleeding; Translations: [Postmenopausal bleeding] Onset: 01-16-2025 Chronic Nonspecific chest pain (20 sources) Chest pain; Translations: [Chest pain, unspecified] Onset: 01-19-2025 02-21-2019 Episodic Other acquired deformities (2 sources) Lumbar spondylolisthesis; Translations: [Spondylolisthesis, lumbar region] 01-18-2025 Episodic Other acquired deformities (1 source) Spondylolisthesis, thoracolumbar region; Translations: [Spondylolisthesis, thoracolumbar region] Onset: 01-19-2025 Episodic Other and ill-defined heart disease (12 sources) Left ventricular systolic dysfunction; Translations: [Other ill-defined heart diseases] 11-02-2024 Chronic Other and ill-defined heart disease (14 sources) Severe left ventricular systolic dysfunction; Translations: [Other ill-defined heart diseases] 11-02-2024 Chronic Other and ill-defined heart disease (1 source) Other ill-defined heart diseases; Translations: [Other ill-defined heart diseases] Onset: 12-13-2024 Chronic Other connective tissue disease (20 sources) History of prosthetic unicompartmental arthroplasty of left knee; Translations: [Presence of left artificial knee joint] 05-19-2021 Chronic Other connective tissue disease (7 sources) Unspecified rotator cuff tear or rupture of right shoulder, not specified as traumatic; Translations: [Tear of right rotator cuff] 06-09-2022 Episodic Other connective tissue disease (16 sources) Tear of right rotator cuff; Translations: [Unspecified rotator cuff tear or rupture of right shoulder, not specified as traumatic] 06-09-2022 Episodic Other lower respiratory disease (20 sources) Dyspnea on exertion; Translations: [Other forms of dyspnea] 01-16-2021 Episodic Other lower respiratory disease (20 sources) Dyspnea; Translations: [Shortness of breath] 08-14-2022 Episodic Other nervous system disorders (20 sources) Neuropathy of lower limb; Translations: [Unspecified mononeuropathy of unspecified lower limb] 12-12-2024 Chronic Other screening for suspected conditions (not mental disorders or infectious disease) (14 sources) Endometrium thickened; Translations: [Abnormal findings on diagnostic imaging of other specified body structures] Onset: 01-10-2025 01-10-2025 Chronic Comment on above: 6.6mm. no vag bleedi ng. EMB pending Other screening for suspected conditions (not mental disorders or infectious disease) (20 sources) Cardiovascular stress test abnormal; Translations: [Abnormal result of other cardiovascular function study] Onset: 01-18-2025 02-21-2019 Episodic Peripheral and visceral atherosclerosis (20 sources) Peripheral vascular disease, unspecified; Translations: [Peripheral arterial disease] Onset: 01-02-2025 03-28-2019 Chronic Comment on above: Right lower extremit y arterial occlusive disease consistent with right superficial femoral artery 01/09/2017; Right lower extremit y arterial occlusive disease consistent with right superficial femoral artery 01/09/2017 Skin and subcutaneous tissue infections (14 sources) Cellulitis; Translations: [Cellulitis, unspecified] 10-09-2023 Episodic Spondylosis; intervertebral disc disorders; other back problems (12 sources) Degeneration of lumbar intervertebral disc; Translations: [Degenerative disc disease (DDD) of lumbar region with discogenic back pain and leg pa] Chronic Spondylosis; intervertebral disc disorders; other back problems (5 sources) Spinal stenosis of lumbar region; Translations: [Spinal stenosis, lumbar region with neurogenic claudication] Onset: 09-23-2024 01-18-2025 Episodic Superficial injury; contusion (20 sources) Contusion of shoulder region; Translations: [Contusion of right shoulder, initial encounter] 04-06-2022 Episodic Unclassified (6 sources) G57.90 - Unspecified mononeuropathy of unspecified lower limb,M51.362 - Other intervertebral disc degeneration, lumbar region with discogenic back pain and lower extremity pain Unclassified (1 source) Other intervertebral disc degeneration, lumbar region with discogenic back pain and lower extremity pain; Translations: [Other intervertebral disc degeneration, lumbar region with discogenic back pain and lower extremity pain] Onset: 01-19-2025 Past or Other Problems Problem Classification Problem Date Documented Date Episodic/Chronic Other lower respiratory disease (1 source) Other forms of dyspnea; Translations: [Other forms of dyspnea] Onset: 03-02-2024 Episodic Residual codes; unclassified (20 sources) History of cardiac catheterization; Translations: [Other [...] Test Name Value Interpretation Reference Range Facility Orthopedic Visit Reporton Orthopedic Visit Report [facility] [address] [place] [address] OFFICE VISIT Date of Service: 01/18/25 MR#: [id number] Acct: [id number] Name: CHRISTY FRANCIS Rep #: [id number] : 1950 Provider: SKYLER Vance Age/Sex: 74/F Location: [facility] Status: Signed Intake Vital Signs 01/07/25 16:04 01/10/25 10:46 01/18/25 09:28 Height 5 ft 2 in 5 ft 2 in 5 ft 2 in Weight: 167 lb 164 lb BMI 30.5 29.9 BP 125/74 H Blood Pressure Location Rt brachial Position Sitting Pulse 98 Pulse Source Monitor Intake Visit Reasons: LUMBAR SPINE Chief Complaint: Lumbar spine pain Accompanied by: Self Is patient in pain?: Yes Pain scale (1-10): 3 Allergies cefazolin Allergy (Verified 01/18/25 09:31) Shortness of breath codeine Allergy (Verified 01/18/25 09:31) Shortness of breath morphine Allergy (Verified 01/18/25 09:31) Other naloxone (Naloxone) Allergy (Verified 01/18/25 09:31) Shortness of breath pentazocine Allergy (Verified 01/18/25 09:31) Shortness of breath pentazocine lactate (From Talwin) Allergy (Verified 01/18/25 09:31) Shortness of breath atorvastatin Adverse Reaction (Severe, Verified 01/18/25 09:31) Severe myalgias acetaminophen (From Tylenol) Adverse Reaction (Verified 01/18/25 09:31) Nausea Medications ???Medication ???Instructions ???Recorded ???Confirmed ???Type aspirin 81 mg tablet,delayed 81 mg PO DAILY heart health 01/18/25 History release duloxetine 60 mg capsule,delayed 60 mg PO DAILY mental health 08/2001/18/25 History release allopurinol 300 mg tablet 300 mg PO BID gout 11/05/23 History cilostazol 100 mg tablet 100 mg PO BID anti platelet 01/18/25 History rosuvastatin 10 mg tablet See Rx Instructions .Route 4 01/18/25 Rx .COMPLEX cholesterol #90 TABLETS furosemide 40 mg tablet 40 mg PO DAILY diuretic #90 TABLET S 06/19/24 01/18/25 Rx glimepiride 4 mg tablet 4 mg PO BID diabetes 11/02/2406/13 History insulin aspar prt-insulin aspart 20 unit subcut QAM diabetes 01/18/25 History 100 unit/mL (70-30) subcutaneous soln (Novolog Mix 70-30 U-100 Insuln) nitroglycerin 0.4 mg sublingual 0.4 mg sublingual Q5-15M PRN chest 11/02/24 01/18/25 Rx tablet pain #25 tabs tirzepatide 10 mg/0.5 mL 10 mg subcut .every week diabetes 11/02/24 01/18/25 History subcutaneous pen injector (May) isosorbide mononitrate 60 mg 60 mg PO BID heart 01/07/25 History tablet,extended release 24 hr omeprazole 20 mg capsule,delayed 20 mg PO DAILY reflux 01/07/2506/13 History release losartan 25 mg tablet 12.5 mg (1/2 x 25 mg) PO DAILY #15 01/08/25 01/18/25 Rx tabs metoprolol tartrate 50 mg tablet 75 mg (1.5 x 50 mg) PO BID blood 0 01/08/25 01/18/25 Rx pressure #180 tabs ranolazine 500 mg tablet,extended 500 mg PO BID #60 tabs 01/08/25 1 Rx release,12 hr Have you fallen in the past year?: No PFSH Medical History Severe left ventricular systolic dysfunction (LVSD) Palpitations Right rotator cuff tear Trigger finger of both hands Carpal tunnel syndrome on both sides FHx: cholecystectomy History of left heart catheterization (LHC) ( 06/03/21) Essential hypertension Mechanical loosening of prosthetic knee Atherosclerosis of [place] coronary artery of [place] heart without angina pectoris PAD (peripheral artery disease) HLD (hyperlipidemia) Type II diabetes mellitus Surgical History History of cholecystectomy History of coronary artery bypass graft x 3 ( 02/27/19) History of prosthetic unicompartmental arthroplasty of left knee Family History Mother Heart disease Social History current occupational status: retired current occupation: Retired. [employer]. Smoking Status: Light Smoker (<10/day) alcohol intake: current alcohol intake frequency: holidays/special occasions only substance use type: does not use caffeine: Yes Type: coffee Number of servings: 3 do you feel safe at home: Yes additional social history: . HPI LUMBAR SPINE Details: This documentation accurately reflects the service provided and the decisions made by me, SKYLER Vance 01/18/25926. Part of today???s visit was documented by Char Avila MA, acting as scribe. CHRISTY FRANCIS is a 74 year old F here today for lumbar spine. Patient states that her pain is a 3 today. She states that she is having pain in her lower back. Says that she has had chronic low back pain for many years. Patient had rhianna (more content not included)... Normal [facility] Surgical pathology reportOrd ered By: Tammy Simmons on 01-12-2025 Surgical pathology study [facility] Senior Quality Control Technician Office Visit Reporton 01-10-2025 Senior Quality Control Technician Office Visit Report [facility]'s [address], [address] [place] [address] OFFICE VISIT Date of Service: 01/10/25 MR#: [id number] Acct: [id number] Name: CHRISTY FRANCIS Rep #: [id number] : 1950 Provider: JOHNATHON haro Age/Sex: 74/F Location: [facility] Status: Signed Intake Vital Signs 11/02/24 10:17 01/07/25 16:04 01/10/25 10:46 Height 5 ft 2 in 5 ft 2 in 5 ft 2 in Weight: 167 lb BMI 30.5 BP 125/74 H Blood Pressure Location Rt brachial Position Sitting Pulse 98 Pulse Source Monitor Intake Visit Reasons: NU (CLAIRE) 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 Required: No Accompanied by: Self Is patient in pain?: No Allergies cefazolin Allergy (Verified 01/10/25 11:00) Shortness of breath codeine Allergy (Verified 01/10/25 11:00) Shortness of breath morphine Allergy (Verified 01/10/25 11:00) Other naloxone (Naloxone) Allergy (Verified 01/10/25 11:00) Shortness of breath pentazocine Allergy (Verified 01/10/25 11:00) Shortness of breath pentazocine lactate (From Talwin) Allergy (Verified 01/10/25 11:00) Shortness of breath atorvastatin Adverse Reaction (Severe, Verified 01/10/25 11:00) Severe myalgias acetaminophen (From Tylenol) Adverse Reaction (Verified 01/10/25 11:00) Nausea Medications ???Medication ???Instructions ???Recorded ???Confirmed ???Type aspirin 81 mg tablet,delayed 81 mg PO DAILY heart health 01/10/25 History release duloxetine 60 mg capsule,delayed 60 mg PO DAILY mental health 08/2001/10/25 History release allopurinol 300 mg tablet 300 mg PO BID gout 11/05/23 History cilostazol 100 mg tablet 100 mg PO BID anti platelet 01/10/25 History oxycodone-acetaminophen 5 mg-325 1 tab PO TID PRN PRN pain 02/19/24 01/10/25 History mg tablet rosuvastatin 10 mg tablet See Rx Instructions .Route 4 01/10/25 Rx .COMPLEX cholesterol #90 TABLETS furosemide 40 mg tablet 40 mg PO DAILY diuretic #90 TABLET S 06/19/24 01/10/25 Rx glimepiride 4 mg tablet 4 mg PO BID diabetes 11/02/2412/19 History insulin aspar prt-insulin aspart 20 unit subcut QAM diabetes 01/10/25 History 100 unit/mL (70-30) subcutaneous soln (Novolog Mix 70-30 U-100 Insuln) nitroglycerin 0.4 mg sublingual 0.4 mg sublingual Q5-15M PRN chest 11/02/24 01/10/25 Rx tablet pain #25 tabs tirzepatide 10 mg/0.5 mL 10 mg subcut .every week diabetes 11/02/24 01/10/25 History subcutaneous pen injector (May) isosorbide mononitrate 60 mg 60 mg PO BID heart 01/07/25 History tablet,extended release 24 hr omeprazole 20 mg capsule,delayed 20 mg PO DAILY reflux 01/07/25 History release losartan 25 mg tablet 12.5 mg (1/2 x 25 mg) PO DAILY #15 01/08/25 01/10/25 Rx tabs metoprolol tartrate 50 mg tablet 75 mg (1.5 x 50 mg) PO BID blood 0 01/08/25 01/10/25 Rx pressure #180 tabs ranolazine 500 mg tablet,extended 500 mg PO BID #60 tabs 01/08/25 0 01/10/25 Rx release,12 hr Post menopausal: Yes PFSH PFSH Medical History Severe left ventricular systolic dysfunction (LVSD) Palpitations Right rotator cuff tear Trigger finger of both hands Carpal tunnel syndrome on both sides FHx: cholecystectomy History of left heart catheterization (LHC) ( 06/03/21) Essential hypertension Mechanical loosening of prosthetic knee Atherosclerosis of [place] coronary artery of [place] heart without angina pectoris PAD (peripheral artery disease) HLD (hyperlipidemia) Type II diabetes mellitus Surgical History History of cholecystectomy History of coronary artery bypass graft x 3 ( 02/27/19) History of prosthetic unicompartmental arthroplasty of left knee Family History Mother Heart disease Social History (Updated 01/10/25 @ 10:53 by Kaylen Medrano) current occupational status: retired current occupation: Retired. [employer]. Smoking Status: Light Smoker (<10/day) alcohol intake: current alcohol intake frequency: holidays/special occasions only substance use type: does not use caffeine: Yes Type: coffee Number of servings: 3 do you feel safe at home: Yes additional social history: . History 2 Elective abortions Hx Para 2 Spontaneous abortions Hx # Term Pregnancies Ectopic pregnancies Hx # Pregnancies Multiple births # of living children Past Pregnancies Del. Date Name GA/Weeks Outcome Route Bth Weight Infant Gen Labor Lgth Anesthesia Del Locatn Provider FOB 09/27/70 Germán 10/11/73 Jean-Claude [facility] ([facility]) Details: CHRISTY FRACNIS is a 74 year old who (more content not included)... Normal [facility] Surgery Specimen Level Anthony 01-10-2025 Surgery Specimen Level IV Patient Age/Sex Location Account Attending Physician GALILEOCHRISTY Marquita 74/F LABSPEC [id number] JOHNATHON [place] Specimen: [id number] Received: 01/10/25 Status: LISBETH Sepulveda Num: [id number] Spec Type: ENDOM BX/C Subm Dr: JOHNATHON [place] HEADER OPERATION: Endometrial biopsy PRE-OP DIAGNOSIS: Post menopausal bleeding TISSUE SUBMITTED: A- Endometrial lining MICROSCOPIC DIAGNOSIS A. Endometrium, biopsy: * Fragments of mature, well glycogenated, benign squamous mucosa. * Fragments of inflamed endocervical mucosa. * No endometrium is observed. MICROSCOPIC DESCRIPTION Slides are reviewed. GROSS DESCRIPTION A. Received in formalin labeled the patient's name and date of is a 2.7 x 1.0 x 0.2 cm aggregate of mucoid material and flecks of pink-red tissue. Entirely submitted in 1 cassette. PR 01/10/2025 CPT:16572 Patient Age/Sex Location Account Attending Physician CHRISTY FRANCIS 74/F LABSPEC [id number] JOHNATHON [place] Signed (signature on file) Dr. Tammy Simmons MD 01/12/25 1526 Normal [facility] Comment on above: Performed By: #### P SUIV ####[facility] [address] [place], [address] 12 Lead EKGon 01-08-2025 12 Lead EKG [facility] Cardiovascular Services [address] [place] [address] 12 Lead EKG 01/08/25 0542 MR#: [id number] Acct: [id number] Name: CHRISTY FRANCIS Rep #: [id number] : 1950 74 From: Jorge Anderson MD Attending Dr: Dr. Rupali Lott, DO Status: ADM I NO Ordering Dr: Maritza Suresh MD Date: 01/08/25 Location: [facility] Sex: F C Admitted: 01/07/25 Test Reason : AM EKG Blood Pressure : */* mmHG Vent. Rate : 91 BPM Atrial Rate : 91 BPM P-R Int : 166 ms QRS Dur : 78 ms QT Int : 334 ms P-R-T Axes : 62 -6 82 degrees QTcB Int : 410 ms Normal sinus rhythm Possible Left atrial enlargement Borderline ECG When compared with ECG of 07-Jan-2025 16:23, MANUAL COMPARISON REQUIRED DATA IS UNCONFIRMED Confirmed by MONICA ROMERO, JORGE ([id number]), video news editor SHILPA VALENZUELA ([id number]) on 01/08/2025 10:31:37 AM Referred By: Confirmed By: JORGE ANDERSON MD 01/08/25 103 Date Jorge Anderson MD CC: Dr. Rupali Lott DO; Dr. Marielos Perla DO; Dr. Maritza Suresh MD Signed Normal [facility] Absolute lymphocyte countOrd ered By: Elena Bill on 01-08-2025 Lymphocytes Auto (Unsp spec) [#/Vol] 1.37 10*3/uL 0.83-4.51 [facility] Absolute neutrophil countOrd ered By: Elena Bill on 01-08-2025 Neutrophils (Bld) [#/Vol] 7.1 10*3/uL 2.0-7.7 [facility] Automated lymphocyte count a s percentage of total leukocytesOrdered By: Elena Multanier on 01-08-2025 Lymphocytes/100 WBC Auto (Unsp spec) 13.2 % Low 19-41 [facility] Basophil percentageOrdered B y: Elena Bill on 01-08-2025 Basophils/100 WBC (Bld) 0.7 % 0-1 [facility] Bedside Glucoseon 01-08-2025 FINGERSTICK GLU 169 mg/dL High 74-106 [facility] Comment on above: Result Comment: GENARO GEMENT OF PATIENT CARE PER NURSING PROTOCOL Performed By: #### L 501.080 ####[facility] [address] [place], [place], [address] FINGERSTICK GLU 189 mg/dL High 74-106 [facility] Comment on above: Result Comment: GENARO GEMENT OF PATIENT CARE PER NURSING PROTOCOL Performed By: #### L 501.080 #### [facility] [address] [place], [place], [id number] CBC W/Diff, Automatedon 12-19 Absolute Lymph 1.37 X10 3/uL Normal 0.83-4.51 [facility] Comment on above: Performed By: #### L 501.080 #### [facility] [address] [place], [address] Absolute Neut 7.1 X10 3/uL Normal 2.0-7.7 [facility] Comment on above: Performed By: #### L 501.080 #### [facility] [address] [place], [address] Basophils/100 WBC (Bld) 0.7 % Normal 0-1 [facility] Comment on above: Performed By: #### L 501.080 #### [facility] [address] [place], [address] Eosinophils/100 WBC (Bld) 6.3 % High 0-5 [facility] Comment on above: Performed By: #### L 501.080 #### [facility] [address] [place], [address] Erythrocyte distribution width (RBC) [Ratio] 15.0 % High 11.6-14.6 [facility] Comment on above: Performed By: #### L 501.080 #### [facility] [address] [place], [address] Hematocrit (Bld) [Volume fraction] 37.3 % Normal 37-47 [facility] Comment on above: Performed By: #### L 501.080 #### [facility] [address] [place], [address] Hemoglobin (Bld) [Mass/Vol] 12.2 g/dL Normal 12.0-15.0 [facility] Comment on above: Performed By: #### L 501.080 #### [facility] [address] [place], [address] IG% 0.500 Normal 0.0-0.9 [facility] Comment on above: Result Comment: IG% - Immature Granulocytes (promyelocytes, myelocytes and metamyelocytes) > 1% indicates that a LEFT SHIFT is Present. Performed By: #### L 501.080 #### [facility] [address] [place], [address] Lymphocytes/100 WBC (Bld) 13.2 % Low 19-41 [facility] Comment on above: Performed By: #### L 501.080 #### [facility] [address] [place], [address] MCH (RBC) [Entitic mass] 30.6 pg Normal 27.0-32.0 [facility] Comment on above: Performed By: #### L 501.080 #### [facility] [address] [place], [address] MCHC (RBC) [Mass/Vol] 32.7 g/dL Normal 32-36 [facility] Comment on above: Performed By: #### L 501.080 #### [facility] [address] [place], [address] MCV (RBC) [Entitic vol] 93.5 fL Normal 81-99 [facility] Comment on above: Performed By: #### L 501.080 #### [facility] [address] [place], [address] Monocytes/100 WBC (Bld) 10.8 % High 0-10 [facility] Comment on above: Performed By: #### L 501.080 #### [facility] [address] [place], [address] Neutrophils/100 WBC (Bld) 68.5 % Normal 47-70 [facility] Comment on above: Performed By: #### L 501.080 #### [facility] [address] [place], [address] Nucleated RBC (Bld) [#/Vol] 0 10*3/uL Normal 0-5 [facility] Comment on above: Performed By: #### L 501.080 #### [facility] [address] [place], [address] Platelet mean volume (Bld) [Entitic vol] 11.0 fL Normal 6.2-12.0 [facility] Comment on above: Performed By: #### L 501.080 #### [facility] [address] [place], [address] Platelets (Bld) [#/Vol] 282 10*3/uL Normal 150-450 [facility] Comment on above: Performed By: #### L 501.080 #### [facility] [address] [place], [address] RBC (Bld) [#/Vol] 3.99 10*6/uL Low 4.2-5.4 [facility] Comment on above: Performed By: #### L 501.080 #### [facility] [address] [place], [address] RDW SD 51.2 fl High 35.1-43.9 [facility] Comment on above: Performed By: #### L 501.080 #### [facility] [address] [place], [address] WBC (Bld) [#/Vol] 10.4 10*3/uL Normal 4.4-11.0 [facility] Comment on above: Performed By: #### L 501.080 #### [facility] [address] [place], [address] Cardiac Cath Diagnosticon Cardiac Cath Diagnostic [facility] Imaging Services [address] [place] [address] Cardiac Cath Diagnostic MR#: [id number] Acct: [id number] Name: CHRISTY FRANCIS Rep #: [id number] : 1950 74 From: Jorge Anderson MD PCP: Dr. Marielos Perla, DO Status:ADM BRIAN Patient Name: CHRISTY FRANCIS Study Date: 01/08/2025 Performing: Jorge Anderson MD Ht: 62 inches 157.48 cm : 1950 Wt: 165.8 lbs 75.1 kg Age: 74 Gender: female BSA: 1.76 PROCEDURE(S) PERFORMED DC04-(76536)LHC/COR/CABG CLINICAL PROFILE AND INDICATIONS Indications: Worsening Angina Heart Failure: None Stress/Imaging Stress/Image Study Performed: No CAD Presentations: Unstable angina. CONCLUSIONS Coronary artery disease with patent GIRALDO to the LAD, saphenous vein graft to posterior descending artery, diffusely diseased circumflex artery with obtuse marginal to the circumflex artery territory occluded. This was previously known. RECOMMENDATIONS Medical therapy DESCRIPTION OF PROCEDURE The patient arrived to the procedure lab. The risks and benefits of the procedure as well as a full description of our services here and current unavailability of surgical backup were fully explained to the patient and/or their significant other prior to the catheterization. The Timeout was completed, verifying the correct patient and procedure. The patient's procedural site was prepped and draped in the usual fashion. Local anesthetic was given subcutaneously to left radial region with Lidocaine 2%. Using a modified Seldinger technique, arterial access was obtained via the left radial artery, a 6Fr sheath was inserted. Left internal mammary artery graft to the LAD selective angiography was performed in multiple views using a 5 Fr. IM catheter. Left Coronary Artery selective angiography was performed in multiple views using a 5 Fr. JL4 catheter. Saphenous Vein graft to the RCA selective angiography was performed in multiple views using a 5 Fr. AR MOD catheter.The arterial sheath was pulled and a TR Band was applied for hemostasis w/ 10ml CORONARY ANGIOGRAPHY DOMINANCE: Right Dominant LEFT HEART ASSESSMENT Left Ventricular Ejection Fraction: by Echo 60 % NormalLeft Ventricular systolic function LEFT MAIN: Ostial 40% stenosis. Mild calcification present LEFT ANTERIOR DESCENDING ARTERY: This vessel gave her for first diagonal branch which is diffusely diseased and then in the midsegment appears to be totally occluded. CIRCUMFLEX ARTERY: Diffusely diseased vessel. 1st and 2nd obtuse marginal branch and diffusely diseased these are smaller vessels at the large obtuse marginal branches patent with no significant stenosis and an AV groove branch has mild diffuse 30 to 40% stenosis. RIGHT CORONARY ARTERY: is occluded GRAFTS: GIRALDO graft to the Mid LAD is patent Saphenous Vein graft to the RPDA is patent Saphenous Vein graft to the 2nd OM is totally occluded COLLATERAL FLOW: Collateral flow from Left to Right COMPLICATIONS No Complications PROCEDURE MEDICATIONS Versed 1 mg IV Fentanyl 50 mcg IV Versed 1 mg IV Oxygen: 2 L/min via nasal cannula Heparin given IA 01/08/2025 12:28:35 Verapamil 2.5mg, Ntg 100mcgs, 3000 units of Heparin given IA 01/08/2025 12:28:35 SUMMARY OF HEMODYNAMIC DATA Time AIR REST ECG 12:12:36 AO 93/48 (70) SA 12:34:50 Signed By Jorge Anderson MD On 01/08/2025 13:06:28 Jorge Anderson MD 01/08/25 1307 Date Jorge Anderson MD Cosigner Signature: Date (if indicated) CC: Dr. Jorge Anderson MD; Dr. Rupali Lott DO; Dr. Marielos Perla DO Date Dictated: 01/08/25 1222 Date Transcribed: 01/08/25 1306 Avian Keeper: [place] Signed Normal [facility] Cardiac catheterization repo rtOrdered By: Jorge Anderson on 01-08-2025 Cardiac catheterization study [facility] Imaging Services [address] [place] [address] Cardiac Cath Diagnostic MR#: [id number] Acct: [id number] Name: CHRISTY FRANCIS Rep #:[id number] : 1950 74 From: Jorge Anderson MD PCP: Dr. Marielos Perla DO Status:ADM BRIAN Patient Name: CHRISTY FRANCIS Study Date: 01/08/2025 Performing: Jorge Anderson MD Ht: 62 inches 157.48 cm : 1950 Wt: 165.8 lbs 75.1 kg Age: 74 Gender: female BSA: 1.76 PROCEDURE(S) PERFORMED DC04-(90096)LHC/COR/CABG CLINICAL PROFILE AND INDICATIONS Indications: Worsening Angina Heart Failure: None Stress/Imaging Stress/Image Study Performed: No CAD Presentations: Unstable angina. CONCLUSIONS Coronary artery disease with patent GIRALDO to the LAD, saphenous vein graft to posterior descending artery, diffusely diseased circumflex artery with obtuse marginal to the circumflex artery territory occluded. This was previously known. RECOMMENDATIONS Medical therapy DESCRIPTION OF PROCEDURE The patient arrived to the procedure lab. The risks and benefits of the procedure as well as a full description of our services here and current unavailability of surgical backup were fully explained to the patient and/or their significant other prior to the catheterization. The Timeout was completed, verifying the correct patient and procedure. The patient's procedural site was prepped and draped in the usual fashion. Local anesthetic was given subcutaneously to left radial region with Lidocaine 2%. Using a modified Seldinger technique, arterial access was obtained via the left radial artery, a 6Fr sheath was inserted. Left internal mammary artery graft to the LAD selective angiography was performed in multiple views using a 5 Fr. IM catheter. Left Coronary Artery selective angiography was performed in multiple views using a 5 Fr. JL4 catheter. Saphenous Vein graft to the RCA selective angiography was performed in multiple views using a 5 Fr. AR MOD catheter.The arterial sheath was pulled and a TR Band was applied for hemostasis w/ 10ml CORONARY ANGIOGRAPHY DOMINANCE: Right Dominant LEFT HEART ASSESSMENT Left Ventricular Ejection Fraction: by Echo 60 % NormalLeft Ventricular systolic function LEFT MAIN: Ostial 40% stenosis. Mild calcification present LEFT ANTERIOR DESCENDING ARTERY: This vessel gave her for first diagonal branch which is diffusely diseased and then in the midsegment appears to be totally occluded. CIRCUMFLEX ARTERY: Diffusely diseased vessel. 1st and 2nd obtuse marginal branch and diffusely diseased these are smaller vessels at the large obtuse marginal branches patent with no significant stenosis and an AV groove branch has mild diffuse 30 to 40% stenosis. RIGHT CORONARY ARTERY: is occluded GRAFTS: GIRALDO graft to the Mid LAD is patent Saphenous Vein graft to the RPDA is patent Saphenous Vein graft to the 2nd OM is totally occluded COLLATERAL FLOW: Collateral flow from Left to Right COMPLICATIONS No Complications PROCEDURE MEDICATIONS Versed 1 mg IV Fentanyl 50 mcg IV Versed 1 mg IV Oxygen: 2 L/min via nasal cannula Heparin given IA 01/08/2025 12:28:35 Verapamil 2.5mg, Ntg 100mcgs, 3000 units of Heparin given IA 01/08/2025 12:28:35 SUMMARY OF HEMODYNAMIC DATA Time AIR REST ECG 12:12:36 AO 93/48 (70) SA 12:34:50 Signed By Jorge Anderson MD On 01/08/2025 13:06:28 Jorge Anderson MD 01/08/25 1307 Date _ Jorge Anderson MD Cosigner Signature: Date (if indicated) CC: Dr. Jorge Anderson MD; Dr. Rupali Lott DO; Dr. Marielos Perla DO ~ Date Dictated: 01/08/25 1222 Date Transcribed: 01/08/25 1306 Avian Keeper: [place] Signed [facility] Work Phone: Consultation - Cardiologyon 01-08-2025 Consultation - Cardiology [facility] Medical Records Department [address] [place] [address] [place] [address] Consultation - Cardiology 01/08/25 0652 MR#: [id number] Acct: [id number] Name: CHRISTY FRANCIS Rep #: [id number] : 1950 74 From: Jorge Anderson MD PCP: Dr. Marielos Perla DO Status:DIS BRIAN Location: [place] [address] Assessment Plan Assessment/Plan (1) Chest pain: PLAN: She presents with chest discomfort which is suggestive of unstable angina. My recommendation at this time especially with her last stress test within the last year is to proceed with a left heart catheterization. Depending on the findings further recommendations will be made. (2) History of coronary artery bypass graft x 3: PLAN: She is status post coronary bypass surgery x 3 with a known occlusion of the saphenous vein graft to the obtuse marginal branch. Will reevaluate the others for further therapeutic measures. (3) Essential hypertension: PLAN: She does have a history of hypertension her blood pressure appears to be well-controlled at this time. (4) HLD (hyperlipidemia): QUALIFIERS: Hyperlipidemia type: unspecified Qualified Code(s): E78.5 - Hyperlipidemia, unspecified PLAN: Her lipid profile is excellent at this particular time. (5) PAD (peripheral artery disease): PLAN: She does have peripheral vascular disease but is not experiencing any claudication symptoms at this particular time. Will review her medications. HPI Consult Data Date of Consult: 01/08/25 HPI Narrative HPI Narrative: CHRISTY FRANCIS, is a 74 F who presents to the emergency room with chest discomfort. She says that this has been described as tightness across her chest. She had experienced similar symptoms when she was seen in our office. However she tells me that the above symptomatology appears to be getting worse and more frequent and she is having some of it at rest. In the emergency room her EKG demonstrated sinus rhythm with no acute changes. Cardiac enzymes were minimally elevated. She has a history of coronary artery bypass surgery with a GIRALDO to the LAD saphenous vein graft to obtuse marginal branch, and saphenous vein graft to the right coronary artery. In addition she has hyperlipidemia hypertension peripheral vascular disease. She did undergo a stress test in February 2024 which demonstrated no evidence of ischemia. She has lost some weight on her GLP-1 she unfortunately continues to use some tobacco products albeit less than she was doing before. Her last catheterization in 2021 demonstrated the patent GIRALDO to the LAD and the saphenous vein graft to the posterior descending artery. The graft to the obtuse marginal branch was occluded. [facility] Medical History Severe left ventricular systolic dysfunction (LVSD) Palpitations Right rotator cuff tear Trigger finger of both hands Carpal tunnel syndrome on both sides FHx: cholecystectomy History of left heart catheterization (LHC) ( 06/03/21) Essential hypertension Mechanical loosening of prosthetic knee Atherosclerosis of [place] coronary artery of [place] heart without angina pectoris PAD (peripheral artery disease) HLD (hyperlipidemia) Type II diabetes mellitus Home Medications ???Medication ???Instructions ???Recorded ???Last Taken ???Type aspirin 81 mg tablet,delayed 81 mg PO DAILY heart health 01/07/25 History release duloxetine 60 mg capsule,delayed 60 mg PO DAILY mental health 08/2001/07/25 History release allopurinol 300 mg tablet 300 mg PO BID gout 11/05/23 History cilostazol 100 mg tablet 100 mg PO BID anti platelet 01/07/25 History oxycodone-acetaminophen 5 mg-325 1 tab PO TID PRN PRN pain 02/19/24 02/03/24 History mg tablet rosuvastatin 10 mg tablet See Rx Instructions .Route 4 01/06/25 Rx .COMPLEX cholesterol #90 TABLETS furosemide 40 mg tablet 40 mg PO DAILY diuretic #90 TABLET S 06/19/24 01/07/25 Rx glimepiride 4 mg tablet 4 mg PO BID 11/02/24 01/07/25 Hist ory insulin aspar prt-insulin aspart 20 unit subcut QAM diabetes 01/07/25 History 100 unit/mL (70-30) subcutaneous soln (Novolog Mix 70-30 U-100 Insuln) nitroglycerin 0.4 mg sublingual 0.4 mg sublingual Q5-15M PRN chest 11/02/24 Unknown Rx tablet pain #25 tabs tirzepatide 10 mg/0.5 mL 10 mg subcut .every week 11/02/24 Unknown History subcutaneous pen injector (May) metoprolol tartrate 50 mg tablet 50 mg PO BID blood pressure #180 0 12/11/24 01/07/25 Rx tabs isosorbide mononitrate 60 mg 60 mg PO BID 01/07/25 01/07/25 His tory tablet,extended release 24 hr losartan 25 mg tablet 25 mg PO DAILY 09/21/25 09/21/25 H istory omeprazole 20 mg capsule,delayed 20 mg PO DAILY 01/07/25 01/07/25 H istory release Allergy/AdvReac Type Severity Reaction Status D (more content not included)... Normal [facility] Electrocardiogram reportOrde red By: Jorge Anderson on 01-08-2025 EKG study [facility] [address] [place] [address] 12 Lead EKG 01/07/25 1623 MR#: [id number] Acct: [id number] Name: CHRISTY FRANCIS Rep #:[id number] : 1950 74 From: Jorge Anderson MD Attending Dr: Dr. Rupali Lott DO S tatus: ADM BRIAN Ordering Dr: Maritza Suresh MD Date: 01/07/25 Location: [facility] Sex: F C Admitted: 01/07/25 Test Reason : ADM EKG Blood Pressure : */* mmHG Vent. Rate : 88 BPM Atrial Rate : 88 BPM P-R Int : 162 ms QRS Dur : 76 ms QT Int : 382 ms P-R-T Axes : 40 -5 58 degrees QTcB Int : 462 ms Normal sinus rhythm Normal ECG When compared with ECG of 07-Jan-2025 12:34, MANUAL COMPARISON REQUIRED DATA IS UNCONFIRMED Confirmed by JORGE ANDERSON MD ([id number]), video news editor SHILPA VALENZUELA ([id number]) on 01/08/2025 10:32:10 AM Referred By: SATHYA Confirmed By: JORGE ANDERSON MD 01/08/25 1032 Date _ Jorge Anderson MD CC: Dr. Rupali Lott DO; Dr. Marielos Perla DO; Dr. Maritza Suresh MD ~ Signed [facility] Work Phone: EKG study [facility] Cardi[facility] Services [address] [place] [address] 12 Lead EKG 01/08/25 0542 MR#: [id number] Acct: [id number] Name: CHIRSTY FRANCIS Rep #:[id number] : 1950 74 From: Jorge Anderson MD Attending Dr: DO Marquita Ernandez tatus: ADM BRIAN Ordering Dr: Maritza Suresh MD Date: 01/08/25 Location: U Sex: F C Admitted: 01/07/25 Test Reason : AM EKG Blood Pressure : */* mmHG Vent. Rate : 91 BPM Atrial Rate : 91 BPM P-R Int : 166 ms QRS Dur : 78 ms QT Int : 334 ms P-R-T Axes : 62 -6 82 degrees QTcB Int : 410 ms Normal sinus rhythm Possible Left atrial enlargement Borderline ECG When compared with ECG of 07-Jan-2025 16:23, MANUAL COMPARISON REQUIRED DATA IS UNCONFIRMED Confirmed by MONICA ROMERO, JORGE ([id number]), video news editor SHILPA VALENZUELA ([id number]) on 01/08/2025 10:31:37 AM Referred By: Confirmed By: JORGE ANDERSON MD 01/08/25 1031 Date _ Jorge Anderson MD CC: Dr. Rupali Lott DO; Dr. Marielos Perla DO; Dr. Maritza Suresh MD ~ Signed [facility] Work Phone: EKG study [facility] Cardi[facility] Services [address] [place] [address] 12 Lead EKG 01/07/25 1234 MR#: [id number] Acct: [id number] Name: CHRISTY FRANCIS Rep #:[id number] : 1950 74 From: Jorge Anderson MD Attending Dr: DO Marquita Ernandez tatus: ADM BRIAN Ordering Dr: Elena Bill MD Date: Location: U Sex: F C Admitted: 01/07/25 Test Reason : AR/ER Blood Pressure : */* mmHG Vent. Rate : 99 BPM Atrial Rate : 99 BPM P-R Int : 152 ms QRS Dur : 72 ms QT Int : 332 ms P-R-T Axes : 59 -4 83 degrees QTcB Int : 426 ms Normal sinus rhythm Normal ECG Confirmed by JORGE ANDERSON MD ([id number]), video news editor SHILPA VALENZUELA ([id number]) on 01/08/2025 7:56:38 AM Referred By: Confirmed By: JORGE ANDERSON MD 01/08/25 0756 Date _ Jorge Anderson MD CC: Dr. Elena Bill MD; Dr. Rupali Lott DO; Dr. Marielos Perla DO ~ Signed [facility] Work Phone: Eosinophil percentageOrdered By: Elena Bill on 01-08-2025 Eosinophils/100 WBC (Bld) 6.3 % High 0-5 [facility] Erythrocyte distribution wid th ratioOrdered By: Elena Bill on 01-08-2025 Erythrocyte distribution width (RBC) [Ratio] 15.0 % High 11.6-14.6 [facility] Erythrocyte distribution wid th standard deviationOrdered By: Elena Bill on 01-08-2025 Erythrocyte distribution width (RBC) [Ratio] 51.2 fl High 35.1-43.9 [facility] Gl[facility] at [facility] deOrdered By: Rupali Lott on 01-08-2025 Glucose [Mass/Vol] 169 mg/dL High 74-106 [facility] Comment on above: MANAGEMENT OF PATIEN T CARE PER NURSING PROTOCOL Hematocrit Auto (Bld) [Volum e fraction]Ordered By: Elena Bill on 01-08-2025 Hematocrit (Bld) [Volume fraction] 37.3 % 37-47 [facility] Hemoglobin measurementOrdere d By: Elena Bill on 01-08-2025 Hemoglobin (Bld) [Mass/Vol] 12.2 g/dL 12.0-15.0 [facility] Immature granulocytes/100 WB C Auto (Bld)Ordered By: Elena Bill on 01-08-2025 Immature granulocytes/100 WBC (Bld) 0.500 % 0.0-0.9 [facility] Comment on above: IG% - Immature Granu locytes (promyelocytes, myelocytes and metamyelocytes) > 1% indicates that a LEFT SHIFT is Present. MCV (mean corpuscular volume ) determinationOrdered By: Elena Bill on 01-08-2025 MCV (RBC) [Entitic vol] 93.5 fL 81-99 [facility] Mean corpuscular hemoglobin (MCH) determinationOrdered By: Elena Bill on 01-08-2025 MCH (RBC) [Entitic mass] 30.6 pg 27.0-32.0 [facility] Mean corpuscular hemoglobin concentration (MCHC) determinationOrdered By: Elena Bill on 01-08-2025 MCHC (RBC) [Mass/Vol] 32.7 g/dL 32-36 [facility] Mean platelet volume determi nationOrdered By: Elena Bill on 01-08-2025 Platelet mean volume (Bld) [Entitic vol] 11.0 fL 6.2-12.0 [facility] Monocyte percentageOrdered B y: Elena Bill on 01-08-2025 Monocytes/100 WBC (Bld) 10.8 % High 0-10 [facility] Neutrophil percentageOrdered By: Elenaomar Bill on 01-08-2025 Neutrophils/100 WBC (Bld) 68.5 % 47-70 [facility] Nucleated red blood cell per centageOrdered By: Elena Bill on 01-08-2025 Nucleated RBC/100 WBC (Bld) [Ratio] 0 % 0-5 [facility] Platelet countOrdered By: Tomasz Bill on 01-08-2025 Platelets (Bld) [#/Vol] 282 10*3/uL 150-450 [facility] RBC Auto (Bld) [#/Vol]Ordere d By: Elena Bill on 01-08-2025 RBC (Bld) [#/Vol] 3.99 10*6/uL Low 4.2-5.4 [facility] White blood cell (WBC) count Ordered By: Elena Blil on 01-08-2025 WBC (Bld) [#/Vol] 10.4 10*3/uL 4.4-11.0 [facility] 12 Lead EKGon 01-07-2025 12 Lead EKG [facility] Cardi[facility] Services [address] [place] [address] 12 Lead EKG 01/07/25 1623 MR#: [id number] Acct: [id number] Name: CHRISTY FRANCIS Rep #: [id number] : 1950 74 From: Jorge Anderson MD Attending Dr: Dr. Rupali Lott DO Status: ADM I NO Ordering Dr: Maritza Suresh MD Date: 01/07/25 Location: [facility] Sex: F C Admitted: 01/07/25 Test Reason : ADM EKG Blood Pressure : */* mmHG Vent. Rate : 88 BPM Atrial Rate : 88 BPM P-R Int : 162 ms QRS Dur : 76 ms QT Int : 382 ms P-R-T Axes : 40 -5 58 degrees QTcB Int : 462 ms Normal sinus rhythm Normal ECG When compared with ECG of 07-Jan-2025 12:34, MANUAL COMPARISON REQUIRED DATA IS UNCONFIRMED Confirmed by MONICA ROMERO, JORGE ([id number]), video news editor SHILPA VALENZUELA ([id number]) on 01/08/2025 10:32:10 AM Referred By: SATHYA Confirmed By: JORGE ANDERSON MD 01/08/25 103 Date Jorge Anderson MD CC: Dr. Rupali Lott DO; Dr. Marielos Perla DO; Dr. Maritza Suresh MD Signed Normal [facility] 12 Lead EKG [facility] [address] [place] [address] 12 Lead EKG 01/07/25 1234 MR#: [id number] Acct: [id number] Name: CHRISTY FRANCIS Rep #: [id number] : 1950 74 From: Jorge Anderson MD Attending Dr: Dr. Rupali Lott DO Status: ADM I NO Ordering Dr: Elena Bill MD Date: 01/07/25 Location: U Sex: F C Admitted: 01/07/25 Test Reason : AR/ER Blood Pressure : */* mmHG Vent. Rate : 99 BPM Atrial Rate : 99 BPM P-R Int : 152 ms QRS Dur : 72 ms QT Int : 332 ms P-R-T Axes : 59 -4 83 degrees QTcB Int : 426 ms Normal sinus rhythm Normal ECG Confirmed by MONICA ROMERO, JORGE ([id number]), video news editor SHILPA VALENZUELA ([id number]) on 01/08/2025 7:56:38 AM Referred By: Confirmed By: JORGE ANDERSON MD 01/08/25 0756 Date Jorge Anderson MD CC: Dr. Elena Bill MD; Dr. Rupali Lott DO; Dr. Marielos Perla DO Signed Normal [facility] Activated partial thrombopla stin time (aPTT) in platelet poor plasma by coagulation aOrdered By: Elena Bill on 01-07-2025 aPTT Coag (PPP) [Time] 26.9 s 24.1-36.2 [facility] Anion gap in Serum or Plasma Ordered By: Elena Bill on 01-07-2025 Anion gap [Moles/Vol] 13 mmol/L - [facility] BUN/creatinine ratioOrdered By: Elena Bill on 01-07-2025 Urea nitrogen/Creatinine [Mass ratio] 22.7 mg/mg High 02-05 [facility] Basic Metabolic Profile (BMP )on 01-07-2025 BUN/CRE 22.7 RATIO High 02-05 [facility] Comment on above: Performed By: #### L 501.080 #### [facility] [address] [place], [place], [address] Calcium [Mass/Vol] 9.5 mg/dL Normal 7.6-11.0 [facility] Comment on above: Performed By: #### L 501.080 #### [facility] [address] [place], [address] Chloride [Moles/Vol] 99 mmol/L Normal 98-108 [facility] Comment on above: Performed By: #### L 501.080 #### [facility] [address] [place], [address] CO2 [Moles/Vol] 25.3 mmol/L Normal 21.0-32.0 [facility] Comment on above: Performed By: #### L 501.080 #### [facility] [address] [place], [address] Creatinine [Mass/Vol] 1.26 mg/dL High 0.70-1.20 [facility] Comment on above: Performed By: #### L 501.080 #### [facility] [address] [place], [address] ECRCL 37.37 ml/min Low 50-250 [facility] Comment on above: Performed By: #### L 501.080 #### [facility] [address] [place], [address] GAP 13 Normal 5-15 [facility] Comment on above: Performed By: #### L 501.080 #### [facility] [address] [place], [address] GFR/1.73 sq M.predicted among non-blacks MDRD (S/P/Bld) [Vol rate/Area] 45 mL/min/{1.73_m2} Low >60 [facility] Comment on above: Result Comment: mL/m in/1.73m2 CKD-EPI Creatinine Equation (2020) Performed By: #### L 501.080 #### [facility] [address] [place], [address] Glucose [Mass/Vol] 186 mg/dL High 70-99 [facility] Comment on above: Performed By: #### L 501.080 #### [facility] [address] [place], [address] Potassium [Moles/Vol] 4.0 mmol/L Normal 3.3-5.1 [facility] Comment on above: Performed By: #### L 501.080 #### [facility] [address] [place], [address] Sodium [Moles/Vol] 138 mmol/L Normal 133-145 [facility] Comment on above: Performed By: #### L 501.080 #### [facility] [address] [place], [address] Urea nitrogen [Mass/Vol] 29 mg/dL High 4-19 [facility] Comment on above: Performed By: #### L 501.080 #### [facility] [address] [place], [address] Bedside Glucoseon 01-07-2025 FINGERSTICK GLU 194 mg/dL High 74-106 [facility] Comment on above: Result Comment: GENARO DANG OF PATIENT CARE PER NURSING PROTOCOL Performed By: #### L 501.080 #### [facility] [address] [place], [address] CBC W/Diff, Automatedon 12-19 Absolute Lymph 1.76 X10 3/uL Normal 0.83-4.51 [facility] Comment on above: Performed By: #### L 501.080 #### [facility] [address] [place], [address] Absolute Neut 8.4 X10 3/uL High 2.0-7.7 [facility] Comment on above: Performed By: #### L 501.080 #### [facility] [address] [place], [address] Basophils/100 WBC (Bld) 0.6 % Normal 0-1 [facility] Comment on above: Performed By: #### L 501.080 #### [facility] [address] [place], [address] Eosinophils/100 WBC (Bld) 5.2 % High 0-5 [facility] Comment on above: Performed By: #### L 501.080 #### [facility] [address] [place], [address] Erythrocyte distribution width (RBC) [Ratio] 15.2 % High 11.6-14.6 [facility] Comment on above: Performed By: #### L 501.080 #### [facility] [address] [place], [address] Hematocrit (Bld) [Volume fraction] 40.1 % Normal 37-47 [facility] Comment on above: Performed By: #### L 501.080 #### [facility] [address] [place], [address] Hemoglobin (Bld) [Mass/Vol] 13.4 g/dL Normal 12.0-15.0 [facility] Comment on above: Performed By: #### L 501.080 #### [facility] [address] [place], [address] IG% 0.300 Normal 0.0-0.9 [facility] Comment on above: Result Comment: IG% - Immature Granulocytes (promyelocytes, myelocytes and metamyelocytes) > 1% indicates that a LEFT SHIFT is Present. Performed By: #### L 501.080 #### [facility] [address] [place], [address] Lymphocytes/100 WBC (Bld) 14.8 % Low 19-41 [facility] Comment on above: Performed By: #### L 501.080 #### [facility] [address] [place], [address] MCH (RBC) [Entitic mass] 31.8 pg Normal 27.0-32.0 [facility] Comment on above: Performed By: #### L 501.080 #### [facility] [address] [place], [address] MCHC (RBC) [Mass/Vol] 33.4 g/dL Normal 32-36 [facility] Comment on above: Performed By: #### L 501.080 #### [facility] [address] [place], [address] MCV (RBC) [Entitic vol] 95.0 fL Normal 81-99 [facility] Comment on above: Performed By: #### L 501.080 #### [facility] [address] [place], [address] Monocytes/100 WBC (Bld) 9.1 % Normal 0-10 [facility] Comment on above: Performed By: #### L 501.080 #### [facility] [address] [place], [address] Neutrophils/100 WBC (Bld) 70.0 % Normal 47-70 [facility] Comment on above: Performed By: #### L 501.080 #### [facility] [address] [place], [address] Nucleated RBC (Bld) [#/Vol] 0 10*3/uL Normal 0-5 [facility] Comment on above: Performed By: #### L 501.080 #### [facility] [address] [place], [address] Platelet mean volume (Bld) [Entitic vol] 11.0 fL Normal 6.2-12.0 [facility] Comment on above: Performed By: #### L 501.080 #### [facility] [address] [place], [address] Platelets (Bld) [#/Vol] 312 10*3/uL Normal 150-450 [facility] Comment on above: Performed By: #### L 501.080 #### [facility] [address] [place], [address] RBC (Bld) [#/Vol] 4.22 10*6/uL Normal 4.2-5.4 [facility] Comment on above: Performed By: #### L 501.080 #### [facility] [address] [place], [address] RDW SD 53.1 fl High 35.1-43.9 [facility] Comment on above: Performed By: #### L 501.080 #### [facility] [address] [place], [address] WBC (Bld) [#/Vol] 11.9 10*3/uL High 4.4-11.0 [facility] Comment on above: Performed By: #### L 501.080 #### [facility] [address] [place], [address] Absolute Neut Normal 2.0-7.7 [facility] Comment on above: Order Comment: Comme nts: If not done in prior 24 hours Result Comment: DUPL ICATE ORDER. Performed By: #### L 501.080 #### [facility] [address] [place], [address] HCT Normal 37-47 [facility] Comment on above: Order Comment: Comme nts: If not done in prior 24 hours Result Comment: DUPL ICATE ORDER. Performed By: #### L 501.080 #### [facility] [address] [place], [address] HGB Normal 12.0-15.0 [facility] Comment on above: Order Comment: Comme nts: If not done in prior 24 hours Result Comment: DUPL ICATE ORDER. Performed By: #### L 501.080 #### [facility] [address] [place], [address] MCH Normal 27.0-32.0 [facility] Comment on above: Order Comment: Comme nts: If not done in prior 24 hours Result Comment: DUPL ICATE ORDER. Performed By: #### L 501.080 #### [facility] [address] [place], [address] MCHC Normal 32-36 [facility] Comment on above: Order Comment: Comme nts: If not done in prior 24 hours Result Comment: DUPL ICATE ORDER. Performed By: #### L 501.080 #### [facility] [address] [place], [address] MCV Normal 81-99 [facility] Comment on above: Order Comment: Comme nts: If not done in prior 24 hours Result Comment: DUPL ICATE ORDER. Performed By: #### L 501.080 #### [facility] [address] [place], [address] NEUT% Normal 47-70 [facility] Comment on above: Order Comment: Comme nts: If not done in prior 24 hours Result Comment: DUPL ICATE ORDER. Performed By: #### L 501.080 #### [facility] [address] [place], [address] PLT Normal 150-450 [facility] Comment on above: Order Comment: Comme nts: If not done in prior 24 hours Result Comment: DUPL ICATE ORDER. Performed By: #### L 501.080 #### [facility] [address] [place], [address] RBC Normal 4.2-5.4 [facility] Comment on above: Order Comment: Comme nts: If not done in prior 24 hours Result Comment: DUPL ICATE ORDER. Performed By: #### L 501.080 #### [facility] [address] [place], [address] RDW CV Normal 11.6-14.6 [facility] Comment on above: Order Comment: Comme nts: If not done in prior 24 hours Result Comment: DUPL ICATE ORDER. Performed By: #### L 501.080 #### [facility] [address] [place], [address] RDW SD Normal 35.1-43.9 [facility] Comment on above: Order Comment: Comme nts: If not done in prior 24 hours Result Comment: DUPL ICATE ORDER. Performed By: #### L 501.080 #### [facility] [address] [place], [address] WBC Normal 4.4-11.0 [facility] Comment on above: Order Comment: Comme nts: If not done in prior 24 hours Result Comment: DUPL ICATE ORDER. Performed By: #### L 501.080 #### [facility] [address] [place], [address] CTA Chest W/WO Contraston CTA Chest W/WO Contrast [facility] Imaging Services [address] [place] [address] CTA Chest W/WO Contrast MR#: [id number] Acct: [id number] Name: CHRISTY FRANCIS Rep #: [id number] : 1950 F 74 From: Thee Ignacio MD PCP: Dr. Marielos Perla, DO Status: [facility] ER Study: CTA Chest W/WO Contrast Date of Exam: 01/07/25 Exam# [id number] Ordering Dr: Elena Bill MD PROCEDURE: CTA CHEST W/WO CONTRAST 01/07/2025 REASON FOR EXAM: ELEVATED DDIMER, CP, SOB TECHNIQUE: Procedure Code: CTCTACHWW Modality: CT Procedure: CTA CHEST W/WO CONTRAST Multiplanar Sagittal and Coronal images were obtained. 3D reconstructions CONTRAST: Isovue 370 VOLUME: 100 mL One or more dose reduction techniques were used (e.g., Automated exposure control, adjustment of the mA and/or kV according to patient size, use of iterative reconstruction technique). RADIATION DOSE SUMMARY: CTDlvol: 20 mGy DLP: 415 mGycm FINDINGS: Normal aortic arch. No filling defects in the pulmonary arterial tree. Images of the upper abdomen unremarkable. No pericardial fluid. No thoracic aneurysm. Mild coronary artery calcification. No dissection. Although lung windows were not supplied, no masses or consolidation are noted. CT/CTA Chest W/WO Contrast IMPRESSION: No significant abnormality Reading [facility] CC: Dr. Elena Bill MD; Dr. Marielos Perla DO Avian Keeper: Signed Normal [facility] Carbon dioxide, total [Moles /volume] in Central venous bloodOrdered By: Elena Bill on 01-07-2025 CO2 [Moles/Vol] 25.3 mmol/L 21.0-32.0 [facility] Chest PA and Lateralon 01-07 Chest PA and Lateral [facility] Imaging Services [address] [place] [address] [id number] Chest PA and Lateral MR#: [id number] Acct: [id number] Name: CHRISTY FRANCIS Rep #: [id number] : 1950 F 74 From: Felisa Haines MD PCP: Dr. Marielos Perla DO Status: REG ER Study: Chest PA and Lateral Date of Exam: 01/07/25 Exam# [id number] Ordering Dr: Elena Bill MD PROCEDURE: CHEST PA AND LATERAL 01/07/2025 REASON FOR EXAM: CHEST PAIN TECHNIQUE: Procedure Code: RADCXR Modality: DX Procedure: CHEST PA AND LATERAL COMPARISON: 02/19/2024 FINDINGS: LUNGS AND PLEURA: The lungs are clear. No pleural effusion or pneumothorax. HEART AND MEDIASTINUM: The cardiac silhouette is mildly enlarged. The mediastinal contour is normal. Evidence of prior CABG with sternal wires in place. AORTA: Calcified thoracic aorta. BONES: No acute osseous abnormality. RAD/Chest PA and Lateral IMPRESSION: NO ACUTE FINDINGS. Reading Location: [facility] CC: Dr. Elena Bill MD; Dr. Marielos Perla DO Avian Keeper: Signed Normal [facility] Chloride assayOrdered By: Tomasz Bill on 01-07-2025 Chloride [Moles/Vol] 99 mmol/L 98-108 [facility] D-Dimer Quantitative (DVT/PE )on 01-07-2025 D-DIMER QUANT 0.83 FEU/ug/m Invalid Interpretation Code 0.27-0.49 [facility] Comment on above: Result Comment: CRIT ICAL VALUE CALLED TO Dedra DIXON 01/07/25 1321 Lalita Temple. RESULTS READ BACK BY SAME. D-Dimer ELEVATED (>0.49): Additional studies and clinical assessments are indicated to conclude diagnosis of: Deep Vein Thrombosis (DVT) or Pulmonary Embolism (PE) Performed By: #### L 300.8000 ####[facility] [id number] [place], [address] Emergency Department Summary on 01-07-2025 Emergency Department Summary [facility] Medical Records Department [address] [place] [address] Emergency Department Summary 01/07/25 MR#: [id number] Acct: [id number] Name: CHRISTY FRANCIS Rep #: [id number] : 1950 74 From: Elena Bill MD PCP: Dr. Marielos Perla DO Status:REG ER Location: ED HPI History of Present Illness Chief Complaint: Chest Pain Narrative Narrative: Patient is a 74-year-old female presenting to the emergency department for chest pain that started around 9 AM this morning. Patient has a past medical history of a CABG in 2019 at [facility], palpitations, hypertension, hyperlipidemia, type 2 diabetes and peripheral artery disease. Patient states that she has been having indigestion for the past few weeks. States that today at 9 AM she developed left-sided chest pressure and a sharp pain in her left shoulder blade. She states the pain goes down her left arm. She endorses some mild shortness of breath and nausea associated with it. Denies any diaphoresis. Denies any fever, chills, cough, abdominal pain, vomiting. Denies any history of PE or DVT. Denies any recent travel, hospitalizations or surgeries. She is not on any oral anticoagulation. She did take her baby aspirin this morning prior to coming. [facility] Medical History Severe left ventricular systolic dysfunction (LVSD) Palpitations Right rotator cuff tear Trigger finger of both hands Carpal tunnel syndrome on both sides FHx: cholecystectomy History of left heart catheterization (LHC) ( 06/03/21) Essential hypertension Mechanical loosening of prosthetic knee Atherosclerosis of [place] coronary artery of [place] heart without angina pectoris PAD (peripheral artery disease) HLD (hyperlipidemia) Type II diabetes mellitus Home Medications ???Medication ???Instructions ???Recorded ???Last Taken ???Type aspirin 81 mg tablet,delayed 81 mg PO DAILY heart health 06/03/21 History release duloxetine 60 mg capsule,delayed 60 mg PO DAILY mental health 08/20 Unknown History release allopurinol 300 mg tablet 300 mg PO BID gout 11/05/23 Unknow n History cilostazol 100 mg tablet 100 mg PO BID anti platelet Unknown History oxycodone-acetaminophen 5 mg-325 1 tab PO TID PRN PRN pain 02/19/24 02/03/24 History mg tablet rosuvastatin 10 mg tablet See Rx Instructions .Route 4 Unknown Rx .COMPLEX cholesterol #90 TABLETS furosemide 40 mg tablet 40 mg PO DAILY diuretic #90 TABLET S 06/19/24 Unknown Rx glimepiride 4 mg tablet 4 mg PO BID 11/02/24 Unknown Histo ry insulin aspar prt-insulin aspart 20 unit subcut QAM diabetes Unknown History 100 unit/mL (70-30) subcutaneous soln (Novolog Mix 70-30 U-100 Insuln) nitroglycerin 0.4 mg sublingual 0.4 mg sublingual Q5-15M PRN chest 11/02/24 Unknown Rx tablet pain #25 tabs tirzepatide 10 mg/0.5 mL 10 mg subcut .every week 11/02/24 Unknown History subcutaneous pen injector (Aldounrocky) metoprolol tartrate 50 mg tablet 50 mg PO BID blood pressure #180 0 12/11/24 Unknown Rx tabs Allergy/AdvReac Type Severity Reaction Status Date / Time cefazolin Allergy Shortness Verified 01/07/25 12:23 of breath codeine Allergy Shortness Verified 01/07/25 12:23 of breath morphine Allergy Other Verified 01/07/25 12:23 naloxone (Naloxone) Allergy Shortness Verified 01/07/25 12:23 of breath pentazocine Allergy Shortness Verified 01/07/25 12:23 of breath pentazocine lactate (From Allergy Shortness Verified 01/07/25 12:23 Flakita) of breath atorvastatin AdvReac Severe Severe Verified 01/07/25 12:23 myalgias acetaminophen (From Tylenol) AdvReac Nausea Verified 01/07/25 12:23 Family History Mother Heart disease Surgical History History of cholecystectomy History of coronary artery bypass graft x 3 ( 02/27/19) History of prosthetic unicompartmental arthroplasty of left knee Social History Smoking Status: Light Smoker (<10/day) alcohol intake: current alcohol intake frequency: holidays/special occasions only substance use type: does not use caffeine: Yes Type: coffee Number of servings: 3 ROS ROS ED ROS Narrative see HPI EXAM Physical Exam Narrative Exam Narrative: Vital signs: Reviewed General: Alert and oriented x 3. No acute distress HEENT: Head is normocephalic and atraumatic, sinuses nontender, pupils equal round and reactive. Nares are patent. Oropharynx and throat exams normal. Neck: Supple without lymphadenopathy nontender Cardiovascular: Regular rate and rhythm, no murmurs. No rubs or gallops. Normal S1 and S2. Equal and sym (more content not included)... Normal [facility] Glomerular filtration rate ( GFR) estimation/1.73 sq m using serum, plasma, or whole bOrdered By: Elena Bill on 01-07-2025 GFR/1.73 sq M.predicted among non-blacks MDRD (S/P/Bld) [Vol rate/Area] 45 mL/min/{1.73_m2} Low >60 [facility] Comment on above: mL/min/1.73m2 CKD-EP I Creatinine Equation (2020) H AND P Exam - [facility] 01-07-2025 H&P Exam - Hospitalist [facility] Medical Records Department [address] [place] [address] H P Exam - Hospitalist 01/07/25 1436 MR#: [id number] Acct: [id number] Name: CHRISTY FRANCIS Rep #: [id number] : 1950 74 From: Maritza Suresh MD PCP: Dr. Marielos Perla, DO Status:ADM BRIAN Location: [place] [address] HPI - General General Date of Admission: 01/07/25 Date of Service: 01/07/25 Chief Complaint: chest pain HPI Narrative CHRISTY FRANCIS, is a 74 F with an extensive PMH as outlined who presents via the ED on 01/07/2025 with a complaint of chest pain. The chest pain started at around 9 AM on the morning of admission. Her past medical history includes a history of CABG in 2019 at [facility] as well as peripheral artery disease, hyperlipidemia and type 2 diabetes mellitus. [facility] prior to admission. She denied shortness of breath, nausea, vomiting or any other symptoms. Review of systems otherwise negative. She is on baby aspirin and took it on the day of admission. Vitals in the ED were blood pressure 116/61, pulse rate of 97, respiratory rate of 14 and she was saturating at 98% on room air. CBC showed hemoglobin of 13.4, WBC of 11.9 and platelets of 312. D- dimer was elevated at 0.83. Chemistry showed sodium of 138 with potassium of 4 and bicarb of 25.3. Anion gap was 13. Creatinine was 1.26. EKG showed no acute ST changes. CTA of the chest showed no evidence of PE. Chest x-ray showed no acute cardiopulmonary findings. Initial troponin was 27. She has been admitted to be managed for chest pain rule out ACS. [facility] Medical History Severe left ventricular systolic dysfunction (LVSD) Palpitations Right rotator cuff tear Trigger finger of both hands Carpal tunnel syndrome on both sides FHx: cholecystectomy History of left heart catheterization (LHC) ( 06/03/21) Essential hypertension Mechanical loosening of prosthetic knee Atherosclerosis of [place] coronary artery of [place] heart without angina pectoris PAD (peripheral artery disease) HLD (hyperlipidemia) Type II diabetes mellitus Home Medications ???Medication ???Instructions ???Recorded ???Last Taken ???Type aspirin 81 mg tablet,delayed 81 mg PO DAILY heart health 06/03/21 History release duloxetine 60 mg capsule,delayed 60 mg PO DAILY mental health 08/20 Unknown History release allopurinol 300 mg tablet 300 mg PO BID gout 11/05/23 Unknow n History cilostazol 100 mg tablet 100 mg PO BID anti platelet Unknown History oxycodone-acetaminophen 5 mg-325 1 tab PO TID PRN PRN pain 02/19/24 02/03/24 History mg tablet rosuvastatin 10 mg tablet See Rx Instructions .Route 4 Unknown Rx .COMPLEX cholesterol #90 TABLETS furosemide 40 mg tablet 40 mg PO DAILY diuretic #90 TABLET S 06/19/24 Unknown Rx glimepiride 4 mg tablet 4 mg PO BID 11/02/24 Unknown Histo ry insulin aspar prt-insulin aspart 20 unit subcut QAM diabetes Unknown History 100 unit/mL (70-30) subcutaneous soln (Novolog Mix 70-30 U-100 Insuln) nitroglycerin 0.4 mg sublingual 0.4 mg sublingual Q5-15M PRN chest 11/02/24 Unknown Rx tablet pain #25 tabs tirzepatide 10 mg/0.5 mL 10 mg subcut .every week 11/02/24 Unknown History subcutaneous pen injector (May) metoprolol tartrate 50 mg tablet 50 mg PO BID blood pressure #180 0 12/11/24 Unknown Rx tabs isosorbide mononitrate 60 mg 60 mg PO BID 01/07/25 Unknown Hist ory tablet,extended release 24 hr losartan 25 mg tablet 25 mg PO DAILY 01/07/25 Unknown Hi story omeprazole 20 mg capsule,delayed 20 mg PO DAILY 01/07/25 Unknown Hi story release Allergy/AdvReac Type Severity Reaction Status Date / Time cefazolin Allergy Shortness Verified 01/07/25 12:23 of breath codeine Allergy Shortness Verified 01/07/25 12:23 of breath morphine Allergy Other Verified 01/07/25 12:23 naloxone (Naloxone) Allergy Shortness Verified 01/07/25 12:23 of breath pentazocine Allergy Shortness Verified 01/07/25 12:23 of breath pentazocine lactate (From Allergy Shortness Verified 01/07/25 12:23 Talwin) of breath atorvastatin AdvReac Severe Severe Verified 01/07/25 12:23 myalgias acetaminophen (From Tylenol) AdvReac Nausea Verified 01/07/25 12:23 Family History Mother Heart disease Surgical History History of cholecystectomy History of coronary artery bypass graft x 3 ( 02/27/19) History of prosthetic unicompartmental arthroplasty of left knee Social History Smoking Status: Light Smoker (<10/day) alcohol intake: current alcohol intake frequency: hol (more content not included)... Normal [facility] International normalized rat io (INR) calculationOrdered By: Elena Bill on 01-07-2025 INR Coag (Bld) [Relative time] 1.1 {INR} [facility] L501.4021on 01-07-2025 Trop T High Sen 27 ng/L High <=14 [facility] Comment on above: Performed By: #### L 501.080 #### [facility] [address] [place], [address] Partial Thromboplast Timeon 01-07-2025 aPTT Coag (Bld) [Time] 26.9 s Normal 24.1-36.2 [facility] Comment on above: Order Comment: Comme nts: If not done in prior 24 hours Performed By: #### L 501.080 #### [facility] [address], [place], [id number] Potassium measurement (mass/ volume)Ordered By: Elena Bill on 01-07-2025 Potassium (Unsp spec) [Mass/Vol] 4.0 mmol/L 3.3-5.1 [facility] Prothrombin Time w/INRon INR Coag (PPP) [Relative time] 1.1 {INR} Normal [facility] Comment on above: Order Comment: Comme nts: If not done in prior 24 hours Performed By: #### L 501.080 #### [facility] [address] [place], [address] PT Coag (PPP) [Time] 14.2 s Normal 11.7-14.9 [facility] Comment on above: Order Comment: Comme nts: If not done in prior 24 hours Performed By: #### L 501.080 #### [facility] [address] [place], [address] Prothrombin timeOrdered By: Elena Bill on 01-07-2025 PT Coag (PPP) [Time] 14.2 s 11.7-14.9 [facility] Serum creatinine measurement (mass/volume)Ordered By: Elena Bill on 01-07-2025 Creatinine [Mass/Vol] 1.26 mg/dL High 0.70-1.20 [facility] Serum glucose measurement (m ass/volume)Ordered By: Elena Bill on 01-07-2025 Glucose [Mass/Vol] 186 mg/dL High 70-99 [facility] Serum or plasma calcium shannon urement (mass/volume)Ordered By: Elena Bill on 01-07-2025 Calcium [Mass/Vol] 9.5 mg/dL 7.6-11.0 [facility] Serum or plasma urea nitroge n measurement (mass/volume)Ordered By: Elena Bill on 01-07-2025 Urea nitrogen [Mass/Vol] 29 mg/dL High 4-19 [facility] Sodium levelOrdered By: Grant Bill on 01-07-2025 Sodium [Moles/Vol] 138 mmol/L 133-145 [facility] Troponin T HS 2 HRon 025 Trop T High Sen 28 ng/L High <=14 [facility] Comment on above: Performed By: #### L 501.080 #### [facility] [address] [place], [address] Troponin T HS 4 HRon 025 Trop T High Sen 27 ng/L High <=14 [facility] Comment on above: Performed By: #### L 501.080 #### [facility] [address] [place], [address] Troponin T.cardiac [Mass/vol ume] in Serum or Plasma by High sensitivity methodOrdered By: Elena Bill on 01-07-2025 Troponin T.cardiac High sensitivity method [Mass/Vol] 27 ng/L High <14 [facility] Troponin T.cardiac High sensitivity method [Mass/Vol] 28 ng/L High <14 [facility] Troponin T.cardiac High sensitivity method [Mass/Vol] 27 ng/L High <14 [facility] MR/BMS.BVSon 01-03-2025 MR/BMS.BVS [facility] Vascular Surgery [address] [place] [address] OFFICE VISIT Date of Service: 01/03/25 MR#: [id number] Acct: [id number] Name: CHRISTY FRANCIS Rep #: [id number] : 1950 Provider: SKYLER Watson Age/Sex: 74/F Location: [facility] Status: Signed Intake Vital Signs 11/02/24 10:17 01/03/25 09:30 Height 5 ft 2 in Weight: 164 lb BP 108/64 Blood Pressure Location Lt radial Position Sitting Respiration 16 Pulse 106 H Pulse Source Monitor Temp 97.7 F L Temp Source Temporal Pulse Oximetry (%) 97 Oxygen Delivery Method room air Intake Visit Reasons: Discuss Results Is patient in pain?: Yes Allergies cefazolin Allergy (Verified 01/03/25 09:32) Shortness of breath codeine Allergy (Verified 01/03/25 09:32) Shortness of breath morphine Allergy (Verified 01/03/25 09:32) Other naloxone (Naloxone) Allergy (Verified 01/03/25 09:32) Shortness of breath pentazocine Allergy (Verified 01/03/25 09:32) Shortness of breath pentazocine lactate (From Talwin) Allergy (Verified 01/03/25 09:32) Shortness of breath atorvastatin Adverse Reaction (Severe, Verified 01/03/25 09:32) Severe myalgias acetaminophen (From Tylenol) Adverse Reaction (Verified 01/03/25 09:32) Nausea Medications ???Medication ???Instructions ???Recorded ???Confirmed ???Type aspirin 81 mg tablet,delayed 81 mg PO DAILY heart health 01/03/25 History release duloxetine 60 mg capsule,delayed 60 mg PO DAILY mental health 08/2001/03/25 History release allopurinol 300 mg tablet 300 mg PO BID gout 11/05/23 History cilostazol 100 mg tablet 100 mg PO BID anti platelet 01/03/25 History oxycodone-acetaminophen 5 mg-325 1 tab PO TID PRN PRN pain 02/19/24 01/03/25 History mg tablet rosuvastatin 10 mg tablet See Rx Instructions .Route 4 01/03/25 Rx .COMPLEX cholesterol #90 TABLETS furosemide 40 mg tablet 40 mg PO DAILY diuretic #90 TABLET S 06/19/24 01/03/25 Rx glimepiride 4 mg tablet 4 mg PO BID 11/02/24 01/03/25 Hist ory insulin aspar prt-insulin aspart 20 unit subcut QAM diabetes 01/03/25 History 100 unit/mL (70-30) subcutaneous soln (Novolog Mix 70-30 U-100 Insuln) nitroglycerin 0.4 mg sublingual 0.4 mg sublingual Q5-15M PRN chest 11/02/24 01/03/25 Rx tablet pain #25 tabs tirzepatide 10 mg/0.5 mL 10 mg subcut .every week 11/02/24 01/03/25 History subcutaneous pen injector (May) metoprolol tartrate 50 mg tablet 50 mg PO BID blood pressure #180 0 12/11/24 01/03/25 Rx tabs Is last menstrual period known: [...] Mechanical loosening of prosthetic knee Atherosclerosis of [place] coronary artery of [place] heart without angina pectoris PAD (peripheral artery [...] F who presents to the office today for follow-up after updated LEAS and lumbar XR. Recall that prior arterial testing here 10/01/23 showed R ISIDRO 0.71 with monophasic waveforms and L ISIDRO 0.56 with mono/biphasic waveforms. In review of studies dating back to 2019 this has been fairly stable, slow downward trend. Arterial duplex in 2020 suggested L SFA occlusion and severe R SFA stenosis. She reports no lower extremity revascularization procedures. She is diabetic. She does smoke. Her primary complaint is numbness and progressive weakness in her left leg. She reports numbness from her toes up to just below her knee and reports that after walking for a few minutes her L foot sometimes will drag a bit due to weakness. Since her last OV she has had more burning pain in her shins, occurring even at rest. She also has numbness in her R foot, but does not note the same level of we (more content not included)... Normal [facility] Arterial study reportOrdered By: Grant Torres on 12-25-2024 Noninvasive arteriosclerosis study report [facility] Cardi[facility] [place] [address] Lower Ext Art Exam w/ Exercise 12/22/24 0956 MR#: [id number] Acct: [id number] Name: CHRISTY FRANCIS Rep #:[id number] : 1950 74 From: Grant Mendez Attending Dr: SKYLER Watson Stat us: REG CLI Ordering Dr: Ava Young Date: Location: [facility] Sex: F C Admitted: Reason [...] Young Referring Physician: Marielos Perla Performed By: Roof, Rand RDCS/RVT 12/25/24 1238 Date _ Grant Torres MD CC: SKYLER Watson; Dr. Marielos Perla, DO ~ Date Dictated: 12/22/24955 Date Transcribed: 12/25/24 123 Avian Keeper: Signed [facility] Work Phone: Lower Ext Art Exam w/ Exerci mai 12-22-2024 Lower Ext Art Exam w/ Exercise [facility] Cardiovascular Services [address] [place] [address] Lower Ext Art Exam w/ Exercise 12/22/24955 MR#: [id number] Acct: [id number] Name: CHRISTY FRANCIS Rep #: [id number] : 1950 74 From: Grant Torres MD Attending Dr: SKYLER Watson Status: REG CLI Ordering Dr: Ava Young Date: 12/22/24 Location: [facility] Sex: F C Admitted: Reason [...] CC: SKYLER Watson; Dr. Marielos Perla DO Date Dictated: 12/22/2456 Date Transcribed: 12/25/24 1238 Avian Keeper: Signed Normal [facility] Lumbar Spine 2 or 3 Viewson 12-22-2024 Lumbar Spine 2 or 3 Views [facility] Imaging Services [address] [place] [address] Lumbar Spine 2 or 3 Views MR#: [id number] Acct: [id number] Name: CHRISTY FRANCIS Rep #: [id number] : 1950 F 74 From: Ted Bullock MD PCP: Dr. Marielos Perla DO Status: REG CLI Study: Lumbar Spine 2 or 3 Views Date of Exam: Exam# [id number] Ordering Dr: Ava Young EXAM: XR Lumbosacral [...] changes lumbar spine as described. Reading Location: [facility] CC: SKYLER Watson; Dr. Marielos Perla DO Avian Keeper: Signed Normal [facility] MR/BMS.BVSon 12-12-2024 MR/BMS.BVS [facility] Vascular Surgery [address] [place] [address] OFFICE VISIT Date of Service: 12/12/24 MR#: [id number] Acct: [id number] Name: CHRISTY FRANCIS Rep #: [id number] : 1950 Provider: SKYLER Watson Age/Sex: 74/F Location: [facility] Status: Signed Intake Vital Signs [...] tablet See Rx Instructions .Route 04/17/ 4 12/12/24 Rx .COMPLEX cholesterol #90 TABLETS [...] you fallen in the past year?: No [facility] History Severe left ventricular systolic dysfunction (LVSD) Palpitations Right rotator cuff tear Trigger finger of both hands Carpal tunnel syndrome on both sides FHx: cholecystectomy History of left heart catheterization (LHC) ( 06/03/21) Essential hypertension Mechanical loosening of prosthetic knee Atherosclerosis of [place] coronary artery of [place] heart without angina pectoris PAD (peripheral artery [...] accompanied to her appointment today by her [id number] Lynda who is an RN and helps [...] her k (more content not included)... Normal [facility] Anion gap in Serum or Plasma Ordered By: Jennifer Bailey on 12-06-2024 Anion gap [Moles/Vol] 14 mmol/L 08-31 [facility] BUN/creatinine ratioOrdered By: Jennifer Bailey on 12-06-2024 Urea nitrogen/Creatinine [Mass ratio] 22.5 mg/mg High 02-05 [facility] Basic Metabolic Profile (BMP )on 12-06-2024 BUN/CRE 22.5 RATIO High 02-05 [facility] Comment on above: Performed By: #### L 501.080 #### [facility] [address] [place], [address] Calcium [Mass/Vol] 9.5 mg/dL Normal 7.6-11.0 [facility] Comment on above: Performed By: #### L 501.080 #### [facility] [address] [place], [address] Chloride [Moles/Vol] 98 mmol/L Normal 98-108 [facility] Comment on above: Performed By: #### L 501.080 #### [facility] [address] [place], [address] CO2 [Moles/Vol] 26.5 mmol/L Normal 21.0-32.0 [facility] Comment on above: Performed By: #### L 501.080 #### [facility] [address] [place], [address] Creatinine [Mass/Vol] 1.42 mg/dL High 0.70-1.20 [facility] Comment on above: Performed By: #### L 501.080 #### [facility] [address] [place], [address] GAP 14 Normal 5-15 [facility] Comment on above: Performed By: #### L 501.080 #### [facility] [address] [place], [address] GFR/1.73 sq M.predicted among non-blacks MDRD (S/P/Bld) [Vol rate/Area] 39 mL/min/{1.73_m2} Low >60 [facility] Comment on above: Result Comment: mL/m in/1.73m2 CKD-EPI Creatinine Equation (2020) Performed By: #### L 501.080 #### [facility] [address] [place], [address] Glucose [Mass/Vol] 169 mg/dL High 70-99 [facility] Comment on above: Performed By: #### L 501.080 #### [facility] [address] [place], [address] Potassium [Moles/Vol] 4.2 mmol/L Normal 3.3-5.1 [facility] Comment on above: Performed By: #### L 501.080 #### [facility] [address] [place], [address] Sodium [Moles/Vol] 138 mmol/L Normal 133-145 [facility] Comment on above: Performed By: #### L 501.080 #### [facility] [address] [place], [address] Urea nitrogen [Mass/Vol] 32 mg/dL High 4-19 [facility] Comment on above: Performed By: #### L 501.080 #### [facility] [address] [place], [address] Carbon dioxide, total [Moles /volume] in Central venous bloodOrdered By: Jennifer Bailey on 12-06-2024 CO2 [Moles/Vol] 26.5 mmol/L 21.0-32.0 [facility] Chloride assayOrdered By: Shantell Bailey on 12-06-2024 Chloride [Moles/Vol] 98 mmol/L 98-108 [facility] Glomerular filtration rate ( GFR) estimation/1.73 sq m using serum, plasma, or whole bOrdered By: Jennifer Bailey on 12-06-2024 GFR/1.73 sq M.predicted among non-blacks MDRD (S/P/Bld) [Vol rate/Area] 39 mL/min/{1.73_m2} Low >60 [facility] Comment on above: mL/min/1.73m2 CKD-EP I Creatinine Equation (2020) Potassium measurement (mass/ volume)Ordered By: Jennifer Bailey on 12-06-2024 Potassium (Unsp spec) [Mass/Vol] 4.2 mmol/L 3.3-5.1 [facility] Serum creatinine measurement (mass/volume)Ordered By: Jennifer Bailey on 12-06-2024 Creatinine [Mass/Vol] 1.42 mg/dL High 0.70-1.20 [facility] Serum glucose measurement (m ass/volume)Ordered By: Jennifer Bailey on 12-06-2024 Glucose [Mass/Vol] 169 mg/dL High 70-99 [facility] Serum or plasma calcium shannon urement (mass/volume)Ordered By: Jennifer Bailey on 12-06-2024 Calcium [Mass/Vol] 9.5 mg/dL 7.6-11.0 [facility] Serum or plasma urea nitroge n measurement (mass/volume)Ordered By: Jennifer Bailey on 12-06-2024 Urea nitrogen [Mass/Vol] 32 mg/dL High 4-19 [facility] Sodium levelOrdered By: Estiven Bailey on 12-06-2024 Sodium [Moles/Vol] 138 mmol/L 133-145 [facility] Pelvic w/ Transvaginalon Pelvic w/ Transvaginal [facility] Imaging Services [address] [place], [place] [id number] Pelvic w/ Transvaginal MR#: [id number] Acct: [id number] Name: CHRISTY FRANCIS Rep #: [id number] : 1950 F 74 From: Demarcus dominguez MD PCP: Dr. Marielos Perla DO Status: REG CLI Study: Pelvic w/ Transvaginal Date of Exam: 11/29/24 Exam# [id number] Ordering Dr: Marielos Perla DO PROCEDURE: PELVIC [...] Endometrial thickening. Clinical correlation recommended. Reading Location: [id number] CC: Dr. Marielos Perla DO Avian Keeper: Signed Normal [facility] Anion gap in Serum or Plasma Ordered By: Jennifer Bailey on 11-02-2024 Anion gap [Moles/Vol] 15 mmol/L 5-15 [facility] BUN/creatinine ratioOrdered By: Jennifer Bailey on 11-02-2024 Urea nitrogen/Creatinine [Mass ratio] 20.1 mg/mg High - [facility] Basic Metabolic Profile (BMP )on 11-02-2024 BUN/CRE 20.1 RATIO High 02-05 [facility] Comment on above: Performed By: #### L 501.080 #### [facility] [place], [address] Calcium [Mass/Vol] 9.9 mg/dL Normal 7.6-11.0 [facility] Comment on above: Performed By: #### L 501.080 #### [facility] [address] [place], [address] Chloride [Moles/Vol] 98 mmol/L Normal 98-108 [facility] Comment on above: Performed By: #### L 501.080 #### [facility] [address] [place], [address] CO2 [Moles/Vol] 23.7 mmol/L Normal 21.0-32.0 [facility] Comment on above: Performed By: #### L 501.080 #### [facility] [address] [place], [address] Creatinine [Mass/Vol] 1.77 mg/dL High 0.70-1.20 [facility] Comment on above: Performed By: #### L 501.080 #### [facility] [address] [place], [address] GAP 15 Normal 5-15 [facility] Comment on above: Performed By: #### L 501.080 #### [facility] [address] [place], [address] GFR/1.73 sq M.predicted among non-blacks MDRD (S/P/Bld) [Vol rate/Area] 30 mL/min/{1.73_m2} Low >60 [facility] Comment on above: Result Comment: mL/m in/1.73m2 CKD-EPI Creatinine Equation (2020) Performed By: #### L 501.080 #### [facility] [address] [place], [address] Glucose [Mass/Vol] 127 mg/dL High 70-99 [facility] Comment on above: Performed By: #### L 501.080 #### [facility] [address] [place], [address] Potassium [Moles/Vol] 4.8 mmol/L Normal 3.3-5.1 [facility] Comment on above: Performed By: #### L 501.080 #### [facility] [address] [place], [address] Sodium [Moles/Vol] 137 mmol/L Normal 133-145 [facility] Comment on above: Performed By: #### L 501.080 #### [facility] [address] [place], [address] Urea nitrogen [Mass/Vol] 36 mg/dL High 4-19 [facility] Comment on above: Performed By: #### L 501.080 #### [facility] [address] [place], [address] Carbon dioxide, total [Moles /volume] in Central venous bloodOrdered By: Jennifer Bailey on 11-02-2024 CO2 [Moles/Vol] 23.7 mmol/L 21.0-32.0 [facility] Cardiology Visit Reporton Cardiology Visit Report [facility] [place] [facility] [address] [place], [place] [address] OFFICE VISIT Date of Service: 11/02/24 MR#: [id number] Acct: [id number] Name: CHRISTY FRANCIS Rep #: [id number] : 1950 Provider: SKYLER Low Age/Sex: 74/F Location: [facility] Status: Signed HPI HPI History of Present Illness Details: This is a 74-year-old white female who presents today for outpatient cardiovascular follow-up visit. She has a history of underlying CAD status post CABG ([facility]: 02-27-2019: GIRALDO to the LAD, SVG to [...] Monitor Intake Visit Reasons: 1 Y FU 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 Required: No Accompanied by: Self Is [...] week 11/02/24 11/02/24 History subcutaneous pen injector (Aldounjaro) Ejection fraction %: 60 Have you fallen in the past year?: Yes (stumbled on treadmill) [facility] Medical History (Updated 11/02/24 @ 10:44 by Jennifer Bailey PA, PA) Severe left ventricular systolic dysfunction (LVSD) Palpitations Right rotator cuff tear Trigger finger of both hands Carpal tunnel syndrome on both sides FHx: cholecystectomy History of left heart catheterization (LHC) ( 06/03/21) Essential hypertension Mechanical loosening of prosthetic knee Atherosclerosis of [place] coronary artery of [place] heart without angina pectoris PAD (peripheral artery disease) HLD (hyperlipidemia) Type II diabetes mellitus Surgical History History of coronary artery bypass graft x 3 ( 02/27/19) History of prosthetic unicompartmental arthroplasty of left knee Family History Mother Heart disease Social History Smoking Status: Light Smoker (<10/day) alcohol intake: current alcohol intake frequency: ho (more content not included)... Normal [facility] Chloride assayOrdered By: Shantell Bailey on 11-02-2024 Chloride [Moles/Vol] 98 mmol/L 98-108 [facility] Glomerular filtration rate ( GFR) estimation/1.73 sq m using serum, plasma, or whole bOrdered By: Jennifer Bailey on 11-02-2024 GFR/1.73 sq M.predicted among non-blacks MDRD (S/P/Bld) [Vol rate/Area] 30 mL/min/{1.73_m2} Low >60 [facility] Comment on above: mL/min/1.73m2 CKD-EP I Creatinine Equation (2020) Potassium measurement (mass/ volume)Ordered By: Jennifer Bailey on 11-02-2024 Potassium (Unsp spec) [Mass/Vol] 4.8 mmol/L 3.3-5.1 [facility] Serum creatinine measurement (mass/volume)Ordered By: Jennifer Bailey on 11-02-2024 Creatinine [Mass/Vol] 1.77 mg/dL High 0.70-1.20 [facility] Serum glucose measurement (m ass/volume)Ordered By: Jennifer Bailey on 11-02-2024 Glucose [Mass/Vol] 127 mg/dL High 70-99 [facility] Serum or plasma calcium shannon urement (mass/volume)Ordered By: Jennifer Bailey on 11-02-2024 Calcium [Mass/Vol] 9.9 mg/dL 7.6-11.0 [facility] Serum or plasma urea nitroge n measurement (mass/volume)Ordered By: Jennifer Bailey on 11-02-2024 Urea nitrogen [Mass/Vol] 36 mg/dL High 4-19 [facility] Sodium levelOrdered By: Estiven Bailey on 11-02-2024 Sodium [Moles/Vol] 137 mmol/L 133-145 [facility] L/S Spine Min 4 Viewson 06- L/S Spine Min 4 Views [facility] Services [address] [place] [address] L/S Spine Min 4 Views MR#: [id number] Acct: [id number] Name: CHRISTY FRANCIS Rep #: [id number] : 1950 F 74 From: Bryce Serrano MD PCP: Dr. Marielos Perla DO Status: REG CLI Study: L/S Spine Min 4 Views Date of Exam: 09/18/24 Exam# [id number] Ordering Dr: Rand Mckeon PROCEDURE: L/S SPINE MIN 4 VIEWS 09/18/2024 REASON FOR EXAM: PAIN, SCIATICA TECHNIQUE: Four views of the lumbar spine COMPARISON: None FINDINGS: There are 5 [id number] lumbar-type vertebral bodies. The pars are not [...] on L5 is likely degenerative. Reading Location: [id number] CC: JOHNATHON Mckeon; Dr. Marielos Perla DO Avian Keeper: Signed Normal [facility] Cardiology Visit Reporton Cardiology Visit Report [facility] [address] [place] [address] OFFICE VISIT Date of Service: 06/05/24 MR#: [id number] Acct: [id number] Name: CHRISTY FRANCIS Rep #: [id number] : 1950 Provider: JOHNATHON olivas Age/Sex: 74/F Location: [facility] Status: Signed HPI HPI History of Present Illness Details: This is a 74-year-old white female who presents today for outpatient cardiovascular follow-up visit. She has a history of underlying CAD status post CABG ([facility]: 02-27-2019: GIRALDO to the LAD, SVG to [...] NIBP Intake Visit Reasons: 3 M FU 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 Required: No Is patient in pain?: [...] subcut QWEEK 06/05/2406/05 History subcutaneous pen injector (Mounjasonro) Ejection fraction %: 60 Have you fallen in the past year?: No [facility] Medical History Palpitations Right rotator cuff tear Trigger finger of both hands Carpal tunnel syndrome on both sides FHx: cholecystectomy History of left heart catheterization (LHC) ( 06/03/21) Essential hypertension Mechanical loosening of prosthetic knee Atherosclerosis of [place] coronary artery of [place] heart without angina pectoris PAD (peripheral artery disease) HLD (hyperlipidemia) Type II diabetes mellitus Surgical History (Updated 06/05/24 @ 11:25 by Charlie Johnson FIELD TRAINING MANAGER, FIELD TRAINING MANAGER-C) History of coronary artery bypass graft x 3 ( 02/27/19) History of prosthetic unicompartmental arthroplasty of left knee Family History Mother Heart disease So (more content not included)... Normal [facility] Cardiology Visit Reporton Cardiology Visit Report [facility] [place] [facility] [address] [place] [address] OFFICE VISIT Date of Service: 03/09/24 MR#: [id number] Acct: [id number] Name: CHRISTY FRANCIS Rep #: [id number] : 1950 Provider: JOHNATHON olivas Age/Sex: 74/F Location: [facility] Status: Signed HPI HPI History of Present Illness Details: This is a 74-year-old white female who presents today for outpatient cardiovascular follow-up visit. She has a history of underlying CAD status post CABG ([facility]: 02-27-2019: GIRALDO to the LAD, SVG to [...] Pulse Source NIBP Intake Visit Reasons: S/P [facility] 02/20 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 Required: No Is patient in pain?: [...] Mechanical loosening of prosthetic knee Atherosclerosis of [place] coronary artery of [place] heart without angina pectoris PAD (peripheral artery [...] frequency: holidays/ (more content not included)... Normal [facility] Basic Metabolic Profile (BMP )on 02-23-2024 BUN Normal - [facility] Comment on above: Result Comment: Canc elled via OM: Order cancelled - Patient discharged Performed By: #### L 501.080 #### [facility] [address] [place], [place], [address] BUN/CRE Normal - [facility] Comment on above: Result Comment: Canc elled via OM: Order cancelled - Patient discharged Performed By: #### L 501.080 #### [facility] [address] [place], [address] CA,Total Normal 8.5-10.1 [facility] Comment on above: Result Comment: Canc elled via OM: Order cancelled - Patient discharged Performed By: #### L 501.080 #### [facility] [address] [place], [address] CL Normal 98-107 [facility] Comment on above: Result Comment: Canc elled via OM: Order cancelled - Patient discharged Performed By: #### L 501.080 #### [facility] [address] [place], [address] CO2 Normal 21.0-32.0 [facility] Comment on above: Result Comment: Canc elled via OM: Order cancelled - Patient discharged Performed By: #### L 501.080 #### [facility] [address] [place], [address] CREAT,SERUM Normal 0.55-1.02 [facility] Comment on above: Result Comment: Canc elled via OM: Order cancelled - Patient discharged Performed By: #### L 501.080 #### [facility] [address] [place], [address] EST GFR Normal >60 [facility] Comment on above: Result Comment: Canc elled via OM: Order cancelled - Patient discharged Performed By: #### L 501.080 #### [facility] [address] [place], [address] EST GFR - AA Normal >60 [facility] Comment on above: Result Comment: Canc elled via OM: Order cancelled - Patient discharged Performed By: #### L 501.080 #### [facility] [address] [place], [address] GAP Normal 5-15 [facility] Comment on above: Result Comment: Canc elled via OM: Order cancelled - Patient discharged Performed By: #### L 501.080 #### [facility] [address] [place], [address] GLU Normal 74-106 [facility] Comment on above: Result Comment: Canc elled via OM: Order cancelled - Patient discharged Performed By: #### L 501.080 #### [facility] [address] [place], [address] Potassium Normal 3.5-5.1 [facility] Comment on above: Result Comment: Canc elled via OM: Order cancelled - Patient discharged Performed By: #### L 501.080 #### [facility] [address] [place], [address] Basic Metabolic Profile (BMP) Normal 136-145 [facility] Comment on above: Result Comment: Canc elled via OM: Order cancelled - Patient discharged Performed By: #### L 501.080 #### [facility] [address] [place], [address] CBC W/Diff, Automatedon 11-0 -2023 Absolute Neut Normal 2.0-7.7 [facility] Comment on above: Result Comment: Canc elled via OM: Order cancelled - Patient discharged Performed By: #### L 501.080 #### [facility] [address] [place], [address] HCT Normal 37-47 [facility] Comment on above: Result Comment: Canc elled via OM: Order cancelled - Patient discharged Performed By: #### L 501.080 #### [facility] [address] [place], [address] HGB Normal 12.0-15.0 [facility] Comment on above: Result Comment: Canc elled via OM: Order cancelled - Patient discharged Performed By: #### L 501.080 #### [facility] [address] [place], [address] MCH Normal 27.0-32.0 [facility] Comment on above: Result Comment: Canc elled via OM: Order cancelled - Patient discharged Performed By: #### L 501.080 #### [facility] [address] [place], [address] MCHC Normal 32-36 [facility] Comment on above: Result Comment: Canc elled via OM: Order cancelled - Patient discharged Performed By: #### L 501.080 #### [facility] [address] [place], [address] MCV Normal 81-99 [facility] Comment on above: Result Comment: Canc elled via OM: Order cancelled - Patient discharged Performed By: #### L 501.080 #### [facility] [address] [place], [address] NEUT% Normal 47-70 [facility] Comment on above: Result Comment: Canc elled via OM: Order cancelled - Patient discharged Performed By: #### L 501.080 #### [facility] [address] [place], [address] PLT Normal 150-450 [facility] Comment on above: Result Comment: Canc elled via OM: Order cancelled - Patient discharged Performed By: #### L 501.080 #### [facility] [address] [place], [address] RBC Normal 4.2-5.4 [facility] Comment on above: Result Comment: Canc elled via OM: Order cancelled - Patient discharged Performed By: #### L 501.080 #### [facility] [address] [place], [address] RDW CV Normal 11.6-14.6 [facility] Comment on above: Result Comment: Canc elled via OM: Order cancelled - Patient discharged Performed By: #### L 501.080 #### [facility] [address] [place], [address] RDW SD Normal 35.1-43.9 [facility] Comment on above: Result Comment: Canc elled via OM: Order cancelled - Patient discharged Performed By: #### L 501.080 #### [facility] [address] [place], [address] WBC Normal 4.4-11.0 [facility] Comment on above: Result Comment: Canc elled via OM: Order cancelled - Patient discharged Performed By: #### L 501.080 #### [facility] [address] [place], [address] Basic Metabolic Profile (BMP )on 02-22-2024 BUN Normal 7-18 [facility] Comment on above: Result Comment: Canc elled via OM: Order cancelled - Patient discharged Performed By: #### L 500.2500, L100.0100 ####[facility] [address] [place], [address] BUN/CRE Normal 10-20 [facility] Comment on above: Result Comment: Canc elled via OM: Order cancelled - Patient discharged Performed By: #### L 500.2500, L100.0100 ####[facility] [address] [place], [address] CA,Total Normal 8.5-10.1 [facility] Comment on above: Result Comment: Canc elled via OM: Order cancelled - Patient discharged Performed By: #### L 500.2500, L100.0100 ####[facility] [address] [place], [address] CL Normal 98-107 [facility] Comment on above: Result Comment: Canc elled via OM: Order cancelled - Patient discharged Performed By: #### L 500.2500, L100.0100 ####[facility] [address] [place], [address] CO2 Normal 21.0-32.0 [facility] Comment on above: Result Comment: Canc elled via OM: Order cancelled - Patient discharged Performed By: #### L 500.2500, L100.0100 ####[facility] [address] [place], [address] CREAT,SERUM Normal 0.55-1.02 [facility] Comment on above: Result Comment: Canc elled via OM: Order cancelled - Patient discharged Performed By: #### L 500.2500, L100.0100 ####[facility] [address] [place], [address] EST GFR Normal >60 [facility] Comment on above: Result Comment: Canc elled via OM: Order cancelled - Patient discharged Performed By: #### L 500.2500, L100.0100 ####[facility] [address] [place], [address] EST GFR - AA Normal >60 [facility] Comment on above: Result Comment: Canc elled via OM: Order cancelled - Patient discharged Performed By: #### L 500.2500, L100.0100 ####[facility] [address] [place], [address] GAP Normal 5-15 [facility] Comment on above: Result Comment: Canc elled via OM: Order cancelled - Patient discharged Performed By: #### L 500.2500, L100.0100 ####[facility] [address] [place], [address] GLU Normal 74-106 [facility] Comment on above: Result Comment: Canc elled via OM: Order cancelled - Patient discharged Performed By: #### L 500.2500, L100.0100 ####[facility] [address] [place], [address] Potassium Normal 3.5-5.1 [facility] Comment on above: Result Comment: Canc elled via OM: Order cancelled - Patient discharged Performed By: #### L 500.2500, L100.0100 ####[facility] [address] [place], [address] Basic Metabolic Profile (BMP) Normal 136-145 [facility] Comment on above: Result Comment: Canc elled via OM: Order cancelled - Patient discharged Performed By: #### L 500.2500, L100.0100 ####[facility] [address] [place], [address] CBC W/Diff, Automatedon 11-0 -2023 Absolute Neut Normal 2.0-7.7 [facility] Comment on above: Result Comment: Canc elled via OM: Order cancelled - Patient discharged Performed By: #### L 500.2500, L100.0100 ####[facility] [address] [place], [address] HCT Normal 37-47 [facility] Comment on above: Result Comment: Canc elled via OM: Order cancelled - Patient discharged Performed By: #### L 500.2500, L100.0100 ####[facility] [address] [place], [address] HGB Normal 12.0-15.0 [facility] Comment on above: Result Comment: Canc elled via OM: Order cancelled - Patient discharged Performed By: #### L 500.2500, L100.0100 ####[facility] [address] [place], [address] MCH Normal 27.0-32.0 [facility] Comment on above: Result Comment: Canc elled via OM: Order cancelled - Patient discharged Performed By: #### L 500.2500, L100.0100 ####[facility] [address] [place], [address] MCHC Normal 32-36 [facility] Comment on above: Result Comment: Canc elled via OM: Order cancelled - Patient discharged Performed By: #### L 500.2500, L100.0100 ####[facility] [address] [place], [address] MCV Normal 81-99 [facility] Comment on above: Result Comment: Canc elled via OM: Order cancelled - Patient discharged Performed By: #### L 500.2500, L100.0100 ####[facility] [address] [place], [address] NEUT% Normal 47-70 [facility] Comment on above: Result Comment: Canc elled via OM: Order cancelled - Patient discharged Performed By: #### L 500.2500, L100.0100 ####[facility] [address] [place], [address] PLT Normal 150-450 [facility] Comment on above: Result Comment: Canc elled via OM: Order cancelled - Patient discharged Performed By: #### L 500.2500, L100.0100 ####[facility] [address] [place], [address] RBC Normal 4.2-5.4 [facility] Comment on above: Result Comment: Canc elled via OM: Order cancelled - Patient discharged Performed By: #### L 500.2500, L100.0100 ####[facility] [address] [place], [address] RDW CV Normal 11.6-14.6 [facility] Comment on above: Result Comment: Canc elled via OM: Order cancelled - Patient discharged Performed By: #### L 500.2500, L100.0100 ####[facility] [address] [place], [address] RDW SD Normal 35.1-43.9 [facility] Comment on above: Result Comment: Canc elled via OM: Order cancelled - Patient discharged Performed By: #### L 500.2500, L100.0100 ####[facility] [address] [place], [address] WBC Normal 4.4-11.0 [facility] Comment on above: Result Comment: Canc elled via OM: Order cancelled - Patient discharged Performed By: #### L 500.2500, L100.0100 ####[facility] [address] [place], [address] 12 Lead EKGon 02-21-2024 12 Lead EKG [facility] [address] [place] [address] 12 Lead EKG 02/19/242009 MR#: [id number] Acct: [id number] Name: CHRISTY FRANCIS Rep #: [id number] : 1950 74 From: Jos Chandra MD Attending Dr: Dr. Kaushik Castro MD Status: DIS BRIAN Ordering Dr: Grant Castelan DO Date: 02/21/24 Location: [facility] Sex: F C Admitted: 02/19/24 Test [...] DATA IS UNCONFIRMED Confirmed by Jos Chandra ([id number]), video news editor SHILPA VALENZUELA ([id number]) on 02/22/2024 9:27:09 AM Referred By: Confirmed By: Jos Chandra 02/22/2427 Date Jos Chandra MD CC: Dr. Kaushik Castro MD; Dr. Grant Castelan DO; Dr. Marielos Perla DO Signed Normal [facility] Basic Metabolic Profile (BMP )on 02-21-2024 BUN/CRE 17.9 RATIO Normal 02-05 [facility] Comment on above: Performed By: #### L 501.080 #### [facility] [address] [place], [address] CA,Total 8.9 mg/dL Normal 8.5-10.1 [facility] Comment on above: Performed By: #### L 501.080 #### [facility] [address] [place], [address] Chloride [Moles/Vol] 107 mmol/L Normal 98-107 [facility] Comment on above: Performed By: #### L 501.080 #### [facility] [address] [place], [address] CO2 [Moles/Vol] 25.0 mmol/L Normal 21.0-32.0 [facility] Comment on above: Performed By: #### L 501.080 #### [facility] [address] [place], [address] Creatinine [Mass/Vol] 1.17 mg/dL High 0.55-1.02 [facility] Comment on above: Result Comment: The validity of the calculated GFR GFRAA in patients over 70 years has not been determined. Clinical correlation is essential. Performed By: #### L 501.080 #### [facility] [address] [place], [address] ECRCL 42.98 ml/min Normal [facility] Comment on above: Performed By: #### L 501.080 #### [facility] [address] [place], [address] EST GFR - AA 58 mL/min Low >60 [facility] Comment on above: Result Comment: Afri can Hungarian GFR Calc Performed By: #### L 501.080 #### [facility] [address] [place], [address] GAP 7 Normal 5-15 [facility] Comment on above: Performed By: #### L 501.080 #### [facility] [address] [place], [address] GFR/1.73 sq M.predicted among non-blacks MDRD (S/P/Bld) [Vol rate/Area] 48 mL/min/{1.73_m2} Low >60 [facility] Comment on above: Result Comment: Non- GFR Calc Performed By: #### L 501.080 #### [facility] [address] [place], [address] Glucose [Mass/Vol] 131 mg/dL High 74-106 [facility] Comment on above: Result Comment: Fast ing Glucose result greater than or equal to 126 mg/dL suggests DIABETES MELLITUS per A.D.A. criteria. Performed By: #### L 501.080 #### [facility] [address] [place], [address] Potassium [Moles/Vol] 3.6 mmol/L Normal 3.5-5.1 [facility] Comment on above: Performed By: #### L 501.080 #### [facility] [address] [place], [address] Sodium [Moles/Vol] 138 mmol/L Normal 136-145 [facility] Comment on above: Performed By: #### L 501.080 #### [facility] [address] [place], [address] Urea nitrogen [Mass/Vol] 21 mg/dL High 7-18 [facility] [facility] Comment on above: Performed By: #### L 501.080 #### [facility] [address] [place], [address] Bedside Glucoseon 02-21-2024 FINGERSTICK GLU 204 mg/dL High 74-106 [facility] Comment on above: Result Comment: GENARO DANG OF PATIENT CARE PER NURSING PROTOCOL Performed By: #### L 501.080 #### [facility] [address] [place], [address] FINGERSTICK GLU 180 mg/dL High 74-106 [facility] Comment on above: Result Comment: GENARO DANG OF PATIENT CARE PER NURSING PROTOCOL Performed By: #### L 501.080 #### [facility] [address] [place], [address] CBC W/Diff, Automatedon 11-0 4-2023 Absolute Lymph 1.89 X10 3/uL Normal 0.83-4.51 [facility] Comment on above: Performed By: #### L 501.080 #### [facility] [address] [place], [address] Absolute Neut 5.7 X10 3/uL Normal 2.0-7.7 [facility] Comment on above: Performed By: #### L 501.080 #### [facility] [address] [place], [address] Basophils/100 WBC (Bld) 0.7 % Normal 0-1 [facility] Comment on above: Performed By: #### L 501.080 #### [facility] [address] [place], [address] Eosinophils/100 WBC (Bld) 14.5 % High 0-5 [facility] Comment on above: Performed By: #### L 501.080 #### [facility] [address] [place], [address] Erythrocyte distribution width (RBC) [Ratio] 15.1 % High 11.6-14.6 [facility] Comment on above: Performed By: #### L 501.080 #### [facility] [address] [place], [address] Hematocrit (Bld) [Volume fraction] 42.2 % Normal 37-47 [facility] Comment on above: Performed By: #### L 501.080 #### [facility] [address] [place], [address] Hemoglobin (Bld) [Mass/Vol] 13.8 g/dL Normal 12.0-15.0 [facility] Comment on above: Performed By: #### L 501.080 #### [facility] [address] [place], [address] IG% 0.300 Normal 0.0-0.9 [facility] Comment on above: Result Comment: IG% - Immature Granulocytes (promyelocytes, myelocytes and metamyelocytes) > 1% indicates that a LEFT SHIFT is Present. Performed By: #### L 501.080 #### [facility] [address] [place], [address] Lymphocytes/100 WBC (Bld) 18.9 % Low 19-41 [facility] Comment on above: Performed By: #### L 501.080 #### [facility] [address] [place], [address] MCH (RBC) [Entitic mass] 30.1 pg Normal 27.0-32.0 [facility] Comment on above: Performed By: #### L 501.080 #### [facility] [address] [place], [address] MCHC (RBC) [Mass/Vol] 32.7 g/dL Normal 32-36 [facility] Comment on above: Performed By: #### L 501.080 #### [facility] [address] [place], [address] MCV (RBC) [Entitic vol] 91.9 fL Normal 81-99 [facility] Comment on above: Performed By: #### L 501.080 #### [facility] [address] [place], [address] Monocytes/100 WBC (Bld) 8.4 % Normal 0-10 [facility] Comment on above: Performed By: #### L 501.080 #### [facility] [address] [place], [address] Neutrophils/100 WBC (Bld) 57.2 % Normal 47-70 [facility] Comment on above: Performed By: #### L 501.080 #### [facility] [address] [place], [address] Nucleated RBC (Bld) [#/Vol] 0 10*3/uL Normal 0-5 [facility] Comment on above: Performed By: #### L 501.080 #### [facility] [address] [place], [address] Platelet mean volume (Bld) [Entitic vol] 11.1 fL Normal 6.2-12.0 [facility] Comment on above: Performed By: #### L 501.080 #### [facility] [address] [place], [address] Platelets (Bld) [#/Vol] 260 10*3/uL Normal 150-450 [facility] Comment on above: Performed By: #### L 501.080 #### [facility] [address] [place], [address] RBC (Bld) [#/Vol] 4.59 10*6/uL Normal 4.2-5.4 [facility] Comment on above: Performed By: #### L 501.080 #### [facility] [address] [place], [address] RDW SD 50.9 fl High 35.1-43.9 [facility] Comment on above: Performed By: #### L 501.080 #### [facility] [address] [place], [address] WBC (Bld) [#/Vol] 10.0 10*3/uL Normal 4.4-11.0 [facility] Comment on above: Performed By: #### L 501.080 #### [facility] [address] [place], [address] Magnesiumon 02-21-2024 Magnesium [Mass/Vol] 2.0 mg/dL Normal 1.6-2.6 [facility] Comment on above: Performed By: #### L 501.080 #### [facility] [address] [place], [address] Phosphoruson 02-21-2024 Phosphate [Mass/Vol] 4.4 mg/dL Normal 2.5-4.9 [facility] Comment on above: Performed By: #### L 501.080 #### [facility] [address] [place], [address] Stress Reporton 02-21-2024 Stress Report [facility] [address] [place] [address] MR#: [id number] Acct: [id number] Name: CHRISTY FRANCIS Rep #: [id number] : 1950 74 From: Jorge Anderson MD [...] myocardial perfusion stress test. Preserved ejection fraction. 02/21/243 Date Jorge Anderson MD CC: Dr. Kaushik Castro MD; Dr. Grant Castelan DO; Dr. Moris Watson MD; Dr. Marielos Perla DO Date Dictated: 02/21/241041 Date Transcribed: 02/21/241041 Avian Keeper: [place] Signed Normal [facility] BNP,B-Type NATRIURETIC PEPTI Regino 02-20-2024 Natriuretic peptide B (Bld) [Mass/Vol] 20.3 pg/mL Normal 0-100 [facility] Comment on above: Performed By: #### L 501.080 #### [facility] [address] [place], [address] Basic Metabolic Profile (BMP )on 02-20-2024 BUN/CRE 16.1 RATIO Normal 10-20 [facility] Comment on above: Performed By: #### L 501.9520, L500.2500, L501.9985 #### [facility] [address] [place], [address] CA,Total 8.4 mg/dL Low 8.5-10.1 [facility] Comment on above: Performed By: #### L 501.9520, L500.2500, L501.9985 #### [facility] [address] [place], [address] Chloride [Moles/Vol] 107 mmol/L Normal 98-107 [facility] Comment on above: Performed By: #### L 501.9520, L500.2500, L501.9985 #### [facility] [address] [place], [address] CO2 [Moles/Vol] 24.0 mmol/L Normal 21.0-32.0 [facility] Comment on above: Performed By: #### L 501.9520, L500.2500, L501.9985 #### [facility] [address] [place], [address] Creatinine [Mass/Vol] 1.37 mg/dL High 0.55-1.02 [facility] Comment on above: Result Comment: The validity of the calculated GFR GFRAA in patients over 70 years has not been determined. Clinical correlation is essential. Performed By: #### L 501.9520, L500.2500, L501.9985 #### [facility] [address] [place], [address] ECRCL 36.71 ml/min Normal [facility] Comment on above: Performed By: #### L 501.9520, L500.2500, L501.9985 #### [facility] [address] [place], [address] EST GFR - AA 49 mL/min Low >60 [facility] Comment on above: Result Comment: Afri can Hungarian GFR Calc Performed By: #### L 501.9520, L500.2500, L501.9985 #### [facility] [address] [place], [address] GAP 6 Normal 5-15 [facility] Comment on above: Performed By: #### L 501.9520, L500.2500, L501.9985 #### [facility] [address] [place], [address] GFR/1.73 sq M.predicted among non-blacks MDRD (S/P/Bld) [Vol rate/Area] 40 mL/min/{1.73_m2} Low >60 [facility] Comment on above: Result Comment: Non- GFR Calc Performed By: #### L 501.9520, L500.2500, L501.9985 #### [facility] [address] [place], [address] Glucose [Mass/Vol] 358 mg/dL High 74-106 [facility] Comment on above: Result Comment: Gluc ose result greater than or equal to 200 mg/dL suggests DIABETES MELLITUS per A.D.A. criteria. Performed By: #### L 501.9520, L500.2500, L501.9985 #### [facility] [address] [place], [address] Potassium [Moles/Vol] 3.9 mmol/L Normal 3.5-5.1 [facility] Comment on above: Performed By: #### L 501.9520, L500.2500, L501.9985 #### [facility] [address] [place], [address] Sodium [Moles/Vol] 136 mmol/L Normal 136-145 [facility] Comment on above: Performed By: #### L 501.9520, L500.2500, L501.9985 #### [facility] [address] [place], [address] Urea nitrogen [Mass/Vol] 22 mg/dL High 7-18 [facility] Comment on above: Performed By: #### L 501.9520, L500.2500, L501.9985 #### [facility] [address] [place], [address] Bedside Glucoseon 02-20-2024 FINGERSTICK GLU 129 mg/dL High 74-106 [facility] Comment on above: Result Comment: GENARO GEMENT OF PATIENT CARE PER NURSING PROTOCOL Performed By: #### L 501.080 #### [facility] [address] [place], [address] FINGERSTICK GLU 178 mg/dL High 74-106 [facility] Comment on above: Result Comment: GENARO GEMENT OF PATIENT CARE PER NURSING PROTOCOL Performed By: #### L 501.080 #### [facility] [address] [place], [address] FINGERSTICK GLU 366 mg/dL High 74-106 [facility] Comment on above: Result Comment: GENARO GEMENT OF PATIENT CARE PER NURSING PROTOCOL Performed By: #### L 501.080 #### [facility] [address] [place], [address] FINGERSTICK GLU 391 mg/dL High 74-106 [facility] Comment on above: Result Comment: GENARO GEMENT OF PATIENT CARE PER NURSING PROTOCOL Performed By: #### L 501.080 #### [facility] [address] [place], [address] Consultation - Cardiologyon 02-20-2024 Consultation - Cardiology [facility] Records Department [address] [place] [address] Consultation - Cardiology 02/20/24 1012 MR#: [id number] Acct: [id number] Name: CHRISTY FRANCIS Rep #: [id number] : 1950 74 From: Jorge Anderson MD PCP: Dr. Marielos Perla, DO Status:ADM BRIAN Location: [place] [address] Assessment Plan Assessment/Plan (1) Exertional dyspnea: PLAN: [...] history of underlying CAD status post CABG ([facility]: 02-27-2019: GIRALDO to the LAD, SVG to [...] that cardiology should see during this admission. [facility] Medical History Palpitations Right rotator cuff tear Trigger finger of both hands Carpal tunnel syndrome on both sides FHx: cholecystectomy History of left heart catheterization (LHC) ( 06/03/21) Essential hypertension Mechanical loosening of prosthetic knee Atherosclerosis of [place] coronary artery of [place] heart without angina pectoris PAD (peripheral artery [...] 11/05/23 11:3 (more content not included)... Normal [facility] Echo Completeon 02-20-2024 Echo Complete [facility] [address] [place] [address] Echo Complete 02/21/24 1022 MR#: [id number] Acct: [id number] Name: FRANCIS,CHRISTY Marquita Rep #: [id number] : 1950 74 From: Jorge Anderson MD Attending Dr: Dr. Kaushik Castro MD Status: ADM BRIAN Ordering Dr: Jorge Anderson MD Date: 02/20/24 Location: [facility] Sex: F C Admitted: 02/19/24 Reason For [...] Dictated: 02/21/24 1022 Date Transcribed: 02/21/24 1131 Avian Keeper: Signed Normal [facility] Hemoglobin A1con 02-20-2024 HbA1c (Bld) [Mass fraction] 9.8 % High 3.8-5.6 [facility] Comment on above: Result Comment: Norm al < 5.7 % Prediabetic 5.7 - 6.4 % Diabetic >or= 6.5 % Please note range changes. Performed By: #### L 501.9520, L500.2500, L501.9985 #### [facility] [address] [place], [address] Thyroid Stim Hormone (TSH)on 02-20-2024 TSH 0.994 uIU/mL Normal 0.358-3.740 [facility] Comment on above: Performed By: #### L 501.9520, L500.2500, L501.9985 #### [facility] [address] [place], [address] 12 Lead EKGon 02-19-2024 12 Lead EKG [facility] [address] [place] [address] 12 Lead EKG 02/21/24 0552 MR#: [id number] Acct: [id number] Name: CHRISTY FRANCIS Rep #: [id number] : 1950 74 From: Jos Chandra MD Attending Dr: Dr. Kaushik Castro MD Status: DIS BRIAN Ordering Dr: Grant Castelan DO Date: 02/19/24 Location: [facility] Sex: F C Admitted: 02/19/24 Test [...] abnormality Abnormal ECG Confirmed by Jos Chandra ([id number]), video news editor SHILPA VALENZUELA ([id number]) on 02/22/2024 9:25:47 AM Referred By: Confirmed By: Jos Chandra 02/22/24 0925 Date Jos Chandra MD CC: Dr. Kaushik Castro MD; Dr. Grant Castelan DO; Dr. Marielos Perla DO Signed Normal [facility] 12 Lead EKG [facility] [address] [facility] [place] [address] 12 Lead EKG 02/19/24 1412 MR#: [id number] Acct: [id number] Name: CHRISTY FRANCIS Rep #: [id number] : 1950 74 From: Jorge Anderson MD Attending Dr: Dr. Kaushik Castro MD Status: ADM BRIAN Ordering Dr: Moris Watson MD Date: 02/19/24 Location: [facility] Sex: F C Admitted: 02/19/24 Test [...] T wave abnormality Abnormal ECG Confirmed by JORGE ANDERSON MD ([id number]), video news editor SHILPA VALENZUELA ([id number]) on 02/21/2024 9:44:03 AM Referred By: Confirmed By: JORGE ANDERSON MD 02/21/24 0944 Date Jorge Anderson MD CC: Dr. Kaushik Castro MD; Dr. Moris Watson MD; Dr. Marielos Perla DO Signed Normal [facility] Basic Metabolic Profile (BMP )on 02-19-2024 BUN/CRE 11.9 RATIO Normal 10-20 [facility] Comment on above: Order Comment: 1Y Performed By: #### L 300.3900, L100.0100, L501.5425, L500.2500 ####[facility] [address] [place], [address] CA,Total 9.2 mg/dL Normal 8.5-10.1 [facility] Comment on above: Order Comment: 1Y Performed By: #### L 300.3900, L100.0100, L501.5425, L500.2500 ####[facility] [address] [place], [address] Chloride [Moles/Vol] 104 mmol/L Normal 98-107 [facility] Comment on above: Order Comment: 1Y Performed By: #### L 300.3900, L100.0100, L501.5425, L500.2500 ####[facility] [address] [place], [address] CO2 [Moles/Vol] 28.0 mmol/L Normal 21.0-32.0 [facility] Comment on above: Order Comment: 1Y Performed By: #### L 300.3900, L100.0100, L501.5425, L500.2500 ####[facility] [address] [place], [address] Creatinine [Mass/Vol] 1.60 mg/dL High 0.55-1.02 [facility] Comment on above: Order Comment: 1Y Result Comment: The validity of the calculated GFR GFRAA in patients over 70 years has not been determined. Clinical correlation is essential. Performed By: #### L 300.3900, L100.0100, L501.5425, L500.2500 ####[facility] [address] [place], [address] ECRCL 31.34 ml/min Normal [facility] Comment on above: Order Comment: 1Y Performed By: #### L 300.3900, L100.0100, L501.5425, L500.2500 ####[facility] [address] [place], [address] EST GFR - AA 41 mL/min Low >60 [facility] Comment on above: Order Comment: 1Y Result Comment: Afri can Hungarian GFR Calc Performed By: #### L 300.3900, L100.0100, L501.5425, L500.2500 ####[facility] [address] [place], [address] GAP 7 Normal 5-15 [facility] Comment on above: Order Comment: 1Y Performed By: #### L 300.3900, L100.0100, L501.5425, L500.2500 ####[facility] [address] [place], [address] GFR/1.73 sq M.predicted among non-blacks MDRD (S/P/Bld) [Vol rate/Area] 34 mL/min/{1.73_m2} Low >60 [facility] Comment on above: Order Comment: 1Y Result Comment: Non- GFR Calc Performed By: #### L 300.3900, L100.0100, L501.5425, L500.2500 ####[facility] [address] [place], [address] Glucose [Mass/Vol] 203 mg/dL High 74-106 [facility] Comment on above: Order Comment: 1Y Result Comment: Gluc ose result greater than or equal to 200 mg/dL suggests DIABETES MELLITUS per A.D.A. criteria. Performed By: #### L 300.3900, L100.0100, L501.5425, L500.2500 ####[facility] [address] [place], [address] Potassium [Moles/Vol] 3.8 mmol/L Normal 3.5-5.1 [facility] Comment on above: Order Comment: 1Y Performed By: #### L 300.3900, L100.0100, L501.5425, L500.2500 ####[facility] [address] [place], [address] Sodium [Moles/Vol] 139 mmol/L Normal 136-145 [facility] Comment on above: Order Comment: 1Y Performed By: #### L 300.3900, L100.0100, L501.5425, L500.2500 ####[facility] [address] [place], [address] Urea nitrogen [Mass/Vol] 19 mg/dL High 7-18 [facility] Comment on above: Order Comment: 1Y Performed By: #### L 300.3900, L100.0100, L501.5425, L500.2500 ####[facility] [address] [place], [address] Bedside Glucoseon 02-19-2024 FINGERSTICK GLU 309 mg/dL High 74-106 [facility] Comment on above: Result Comment: GENARO DANG OF PATIENT CARE PER NURSING PROTOCOL Performed By: #### L 501.080 #### [facility] [address] [place], [address] CBC W/Diff, Automatedon Absolute Lymph 1.79 X10 3/uL Normal 0.83-4.51 [facility] Comment on above: Performed By: #### L 300.3900, L100.0100, L501.5425, L500.2500 ####[facility] [address] [place], [address] Absolute Neut 7.8 X10 3/uL High 2.0-7.7 [facility] Comment on above: Performed By: #### L 300.3900, L100.0100, L501.5425, L500.2500 ####[facility] [address] [place], [address] Basophils/100 WBC (Bld) 0.6 % Normal 0-1 [facility] Comment on above: Performed By: #### L 300.3900, L100.0100, L501.5425, L500.2500 ####[facility] [address] [place], [address] Eosinophils/100 WBC (Bld) 7.8 % High 0-5 [facility] Comment on above: Performed By: #### L 300.3900, L100.0100, L501.5425, L500.2500 ####[facility] [address] [place], [address] Erythrocyte distribution width (RBC) [Ratio] 15.4 % High 11.6-14.6 [facility] Comment on above: Performed By: #### L 300.3900, L100.0100, L501.5425, L500.2500 ####[facility] [address] [place], [address] Hematocrit (Bld) [Volume fraction] 44.1 % Normal 37-47 [facility] Comment on above: Performed By: #### L 300.3900, L100.0100, L501.5425, L500.2500 ####[facility] [address] [place], [address] Hemoglobin (Bld) [Mass/Vol] 14.8 g/dL Normal 12.0-15.0 [facility] Comment on above: Performed By: #### L 300.3900, L100.0100, L501.5425, L500.2500 ####[facility] [address] [place], [address] IG% 0.400 Normal 0.0-0.9 [facility] Comment on above: Result Comment: IG% - Immature Granulocytes (promyelocytes, myelocytes and metamyelocytes) > 1% indicates that a LEFT SHIFT is Present. Performed By: #### L 300.3900, L100.0100, L501.5425, L500.2500 ####[facility] [address] [place], [address] Lymphocytes/100 WBC (Bld) 15.8 % Low 19-41 [facility] Comment on above: Performed By: #### L 300.3900, L100.0100, L501.5425, L500.2500 ####[facility] [address] [place], [address] MCH (RBC) [Entitic mass] 30.6 pg Normal 27.0-32.0 [facility] Comment on above: Performed By: #### L 300.3900, L100.0100, L501.5425, L500.2500 ####[facility] [address] [place], [address] MCHC (RBC) [Mass/Vol] 33.6 g/dL Normal 32-36 [facility] Comment on above: Performed By: #### L 300.3900, L100.0100, L501.5425, L500.2500 ####[facility] [address] [place], [address] MCV (RBC) [Entitic vol] 91.3 fL Normal 81-99 [facility] Comment on above: Performed By: #### L 300.3900, L100.0100, L501.5425, L500.2500 ####[facility] [address] [place], [address] Monocytes/100 WBC (Bld) 6.8 % Normal 0-10 [facility] Comment on above: Performed By: #### L 300.3900, L100.0100, L501.5425, L500.2500 ####[facility] [address] [place], [address] Neutrophils/100 WBC (Bld) 68.6 % Normal 47-70 [facility] Comment on above: Performed By: #### L 300.3900, L100.0100, L501.5425, L500.2500 ####[facility] [address] [place], [address] Nucleated RBC (Bld) [#/Vol] 0 10*3/uL Normal 0-5 [facility] Comment on above: Performed By: #### L 300.3900, L100.0100, L501.5425, L500.2500 ####[facility] [address] [place], [address] Platelet mean volume (Bld) [Entitic vol] 11.0 fL Normal 6.2-12.0 [facility] Comment on above: Performed By: #### L 300.3900, L100.0100, L501.5425, L500.2500 ####[facility] [address] [place], [address] Platelets (Bld) [#/Vol] 276 10*3/uL Normal 150-450 [facility] Comment on above: Performed By: #### L 300.3900, L100.0100, L501.5425, L500.2500 ####[facility] [address] [place], [address] RBC (Bld) [#/Vol] 4.83 10*6/uL Normal 4.2-5.4 [facility] Comment on above: Performed By: #### L 300.3900, L100.0100, L501.5425, L500.2500 ####[facility] [address] [place], [address] RDW SD 51.3 fl High 35.1-43.9 [facility] Comment on above: Performed By: #### L 300.3900, L100.0100, L501.5425, L500.2500 ####[facility] [address] [place], [address] WBC (Bld) [#/Vol] 11.3 10*3/uL High 4.4-11.0 [facility] Comment on above: Performed By: #### L 300.3900, L100.0100, L501.5425, L500.2500 ####[facility] [address] [place], [address] CTA Chest W/WO Contraston CTA Chest W/WO Contrast [facility] Imaging Services [address] [place] [address] CTA Chest W/WO Contrast MR#: [id number] Acct: [id number] Name: CHRISTY FRANCIS Rep #: [id number] : 1950 F 74 From: Stoney Gatica MD PCP: Dr. Marielos Perla DO Status: ADM BRIAN Study: CTA Chest W/WO Contrast Date of Exam: 02/19/24 Exam# [id number] Ordering Dr: Grant Castelan DO [id number] STUDY: CTA CHEST REASON FOR EXAM: Female, [...] 22:28 EDT Reading Location ID and State: [facility] / [place] Tel , Service support , CC: Dr. Grant Castelan DO; Dr. Marielos Perla DO Avian Keeper: Signed Normal [facility] Chest 1 View (Portable)on Chest 1 View (Portable) [facility] Imaging Services [address] [place], [place] [address] Chest 1 View (Portable) MR#: [id number] Acct: [id number] Name: CHRISTY FRANCIS Rep #: [id number] : 1950 F 74 From: Cirilo Ybarra MD PCP: Dr. Marielos Perla DO Status: PRE ER Study: Chest 1 View (Portable) Date of Exam: 02/19/24 Exam# [id number] Ordering Dr: Moris Watson MD [id number] EXAM: XR CHEST, 1 VIEW CLINICAL INDICATION: [...] 15:14 EDT Reading Location ID and State: [facility] / [place] Tel , Service support , CC: Dr. Moris Watson MD; Dr. Marielos Perla DO Avian Keeper: Signed Normal [facility] D-Dimer Quantitative (DVT/PE )on 02-19-2024 D-DIMER QUANT 1.08 FEU/ug/m Invalid Interpretation Code 0.27-0.49 [facility] Comment on above: Result Comment: D-Di nubia ELEVATED (>0.49): Additional studies and clinical assessments are indicated to conclude diagnosis of: Deep Vein Thrombosis (DVT) or Pulmonary Embolism (PE) CRITICAL VALUE CALLED TO PILY 02/19/24 1809 Michelle Tovar. RESULTS READ BACK BY SAME. Performed By: #### L [id number] ####[facility] [address] [place], [address] Emergency Department Summary on 02-19-2024 Emergency Department Summary [facility] Medical Records Department [address] [place] [address] Emergency Department Summary 02/19/24 MR#: [id number] Acct: [id number] Name: CHRISTY FRANCIS Rep #: [id number] : 1950 74 From: Moris Watson MD [...] Risk Factors: Positive for Marfan's Syndrome PFSH PFSH Medical History Palpitations Right rotator cuff tear Trigger finger of both hands Carpal tunnel syndrome on both sides FHx: cholecystectomy History of left heart catheterization (LHC) ( 06/03/21) Essential hypertension Mechanical loosening of prosthetic knee Atherosclerosis of [place] coronary artery of [place] heart without angina pectoris PAD (peripheral artery [...] and chest (more content not included)... Normal [facility] H AND P Exam - Hospitaliston 02-19-2024 H&P Exam - Hospitalist [facility] Medical Records Department [address] [place] [address] H P Exam - Hospitalist 02/19/24 1732 MR#: [id number] Acct: [id number] Name: CHRISTY FRANCIS Rep #: [id number] : 1950 74 From: Grant Castelan DO PCP: Dr. Marielos Perla DO Status:ADM BRIAN Location: [place] [address] HPI - General General Date of Service: [...] today. Symptoms nahed when she stops. Patient's uanjmkqe-ug-emb is in the room and states the [...] cardiac in the hospital service was contacted. [facility] Medical History Palpitations Right rotator cuff tear Trigger finger of both hands Carpal tunnel syndrome on both sides FHx: cholecystectomy History of left heart catheterization (LHC) ( 06/03/21) Essential hypertension Mechanical loosening of prosthetic knee Atherosclerosis of [place] coronary artery of [place] heart without angina pectoris PAD (peripheral artery [...] Pulse O (more content not included)... Normal [facility] L501.4020on 02-19-2024 TROPONIN-I HS 19 pg/mL Normal 3.0-54.0 [facility] Comment on above: Order Comment: Comme nts: SPECIMEN #3'TROP' Serial specimen #1, #2 or #3: 3 Result Comment: Plea se Note: New Test Units and Gender Specific Reference Ranges. For more information see Policy Stat Procedure [place] High Sensitivity Troponin (TNIH) and attachments. Performed By: #### L 501.4020 ####[facility] [address] [place], [address] TROPONIN-I HS 20 pg/mL Normal 3.0-54.0 [facility] Comment on above: Result Comment: Plea se Note: New Test Units and Gender Specific Reference Ranges. For more information see Policy Stat Procedure [place] High Sensitivity Troponin (TNIH) and attachments. Performed By: #### L 501.4020 ####[facility] [address] [place], [address] L501.5425on 02-19-2024 TROPONIN-I HS 19 pg/mL Normal 3.0-54.0 [facility] Comment on above: Order Comment: 1Y Result Comment: Plea se Note: New Test Units and Gender Specific Reference Ranges. For more information see Policy Stat Procedure [place] High Sensitivity Troponin (TNIH) and attachments. Performed By: #### L 300.3900, L100.0100, L501.5425, L500.2500 ####[facility] [address] [facility] [address] Prothrombin Time w/INRon INR Coag (PPP) [Relative time] 1.1 {INR} Normal [facility] Comment on above: Performed By: #### L 300.3900, L100.0100, L501.5425, L500.2500 ####[facility] [address] [place], [address] PT Coag (PPP) [Time] 14.0 s Normal 11.7-14.9 [facility] Comment on above: Performed By: #### L 300.3900, L100.0100, L501.5425, L500.2500 ####[facility] [address] [place], [address] CBC W/Diff, Automatedon 10-1 0-2024 Absolute Lymph 1.72 X10 3/uL Normal 0.83-4.51 [facility] Comment on above: Performed By: #### L 501.080 #### [facility] [address] [place], [address] Absolute Neut 5.0 X10 3/uL Normal 2.0-7.7 [facility] Comment on above: Performed By: #### L 501.080 #### [facility] [address] [place], [address] Basophils/100 WBC (Bld) 0.6 % Normal 0-1 [facility] Comment on above: Performed By: #### L 501.080 #### [facility] [address] [place], [address] Eosinophils/100 WBC (Bld) 12.8 % High 0-5 [facility] Comment on above: Performed By: #### L 501.080 #### [facility] [address] [place], [address] Erythrocyte distribution width (RBC) [Ratio] 15.8 % High 11.6-14.6 [facility] Comment on above: Performed By: #### L 501.080 #### [facility] [address] [place], [address] Hematocrit (Bld) [Volume fraction] 43.8 % Normal 37-47 [facility] Comment on above: Performed By: #### L 501.080 #### [facility] [address] [place], [address] Hemoglobin (Bld) [Mass/Vol] 13.8 g/dL Normal 12.0-15.0 [facility] Comment on above: Performed By: #### L 501.080 #### [facility] [address] [place], [address] IG% 0.500 Normal 0.0-0.9 [facility] Comment on above: Result Comment: IG% - Immature Granulocytes (promyelocytes, myelocytes and metamyelocytes) > 1% indicates that a LEFT SHIFT is Present. Performed By: #### L 501.080 #### [facility] [address] [place], [id number] Lymphocytes/100 WBC (Bld) 20.3 % Normal 19-41 [facility] Comment on above: Performed By: #### L 501.080 #### [facility] [address] [place], [id number] MCH (RBC) [Entitic mass] 29.7 pg Normal 27.0-32.0 [facility] Comment on above: Performed By: #### L 501.080 #### [facility] [address] [place], [address] MCHC (RBC) [Mass/Vol] 31.5 g/dL Low 32-36 [facility] Comment on above: Performed By: #### L 501.080 #### [facility] [address] [place], [id number] MCV (RBC) [Entitic vol] 94.4 fL Normal 81-99 [facility] Comment on above: Performed By: #### L 501.080 #### [facility] [address] [place], [address] Monocytes/100 WBC (Bld) 7.1 % Normal 0-10 [facility] Comment on above: Performed By: #### L 501.080 #### [facility] [address] [place], [id number] Neutrophils/100 WBC (Bld) 58.7 % Normal 47-70 [facility] Comment on above: Performed By: #### L 501.080 #### [facility] [address] [place], [address] Nucleated RBC (Bld) [#/Vol] 0 10*3/uL Normal 0-5 [facility] Comment on above: Performed By: #### L 501.080 #### [facility] [address] [place], [address] Platelet mean volume (Bld) [Entitic vol] 11.1 fL Normal 6.2-12.0 [facility] Comment on above: Performed By: #### L 501.080 #### [facility] [address] [place], [address] Platelets (Bld) [#/Vol] 296 10*3/uL Normal 150-450 [facility] Comment on above: Performed By: #### L 501.080 #### [facility] [address] [place], [address] RBC (Bld) [#/Vol] 4.64 10*6/uL Normal 4.2-5.4 [facility] Comment on above: Performed By: #### L 501.080 #### [facility] [address] [place], [address] RDW SD 54.3 fl High 35.1-43.9 [facility] Comment on above: Performed By: #### L 501.080 #### [facility] [address] [place], [address] WBC (Bld) [#/Vol] 8.5 10*3/uL Normal 4.4-11.0 [facility] Comment on above: Performed By: #### L 501.080 #### [facility] [address] [place], [address] Comprehensive Metabolic Prof ilon 01-27-2024 Albumin [Mass/Vol] 3.2 g/dL Normal 3.2-5.0 [facility] Comment on above: Performed By: #### L 501.080 #### [facility] [address] [place], [address] Albumin/Globulin [Mass ratio] 0.8 {ratio} Low 0.9-2.4 [facility] Comment on above: Performed By: #### L 501.080 #### [facility] [address] [place], [address] ALK P 84 U/L Normal 45-117 [facility] Comment on above: Performed By: #### L 501.080 #### [facility] [address] [place], [address] ALT [Catalytic activity/Vol] 18 U/L Normal 13-56 [facility] Comment on above: Performed By: #### L 501.080 #### [facility] [address] [place], [address] AST [Catalytic activity/Vol] 20 U/L Normal 15-37 [facility] Comment on above: Performed By: #### L 501.080 #### [facility] [address] [place], [address] Bilirubin [Mass/Vol] 0.30 mg/dL Normal 0.20-1.00 [facility] Comment on above: Result Comment: For patients on eltrombopag therapy, use of Dimension [place] TBIL is not recommended. Performed By: #### L 501.080 #### [facility] [address] [place], [address] BUN/CRE 23.6 RATIO High 10-20 [facility] Comment on above: Performed By: #### L 501.080 #### [facility] [address] [place], [address] CA,Total 9.3 mg/dL Normal 8.5-10.1 [facility] Comment on above: Performed By: #### L 501.080 #### [facility] [address] [place], [address] Chloride [Moles/Vol] 106 mmol/L Normal 98-107 [facility] Comment on above: Performed By: #### L 501.080 #### [facility] [address] [place], [address] CO2 [Moles/Vol] 27.0 mmol/L Normal 21.0-32.0 [facility] Comment on above: Performed By: #### L 501.080 #### [facility] [address] [place], [address] Creatinine [Mass/Vol] 1.40 mg/dL High 0.55-1.02 [facility] Comment on above: Result Comment: The validity of the calculated GFR GFRAA in patients over 70 years has not been determined. Clinical correlation is essential. Performed By: #### L 501.080 #### [facility] [address] [place], [address] EST GFR - AA 47 mL/min Low >60 [facility] Comment on above: Result Comment: Afri can Hungarian GFR Calc Performed By: #### L 501.080 #### [facility] [address] [place], [address] GAP 6 Normal 5-15 [facility] Comment on above: Performed By: #### L 501.080 #### [facility] [address] [place], [address] GFR/1.73 sq M.predicted among non-blacks MDRD (S/P/Bld) [Vol rate/Area] 39 mL/min/{1.73_m2} Low >60 [facility] Comment on above: Result Comment: Non- GFR Calc Performed By: #### L 501.080 #### [facility] [address] [place], [address] Globulin (S) [Mass/Vol] 4.1 g/dL Normal 2.2-4.2 [facility] Comment on above: Performed By: #### L 501.080 #### [facility] [address] [place], [address] Glucose [Mass/Vol] 168 mg/dL High 74-106 [facility] Comment on above: Result Comment: Fast ing Glucose result greater than or equal to 126 mg/dL suggests DIABETES MELLITUS per A.D.A. criteria. Performed By: #### L 501.080 #### [facility] [address] [place], [address] Potassium [Moles/Vol] 3.4 mmol/L Low 3.5-5.1 [facility] Comment on above: Performed By: #### L 501.080 #### [facility] [address] [place], [address] Sodium [Moles/Vol] 139 mmol/L Normal 136-145 [facility] Comment on above: Performed By: #### L 501.080 #### [facility] [address] [place], [address] T PROT 7.3 g/dL Normal 6.4-8.2 [facility] Comment on above: Performed By: #### L 501.080 #### [facility] [address] [place], [address] Urea nitrogen [Mass/Vol] 33 mg/dL High 7-18 [facility] Comment on above: Performed By: #### L 501.080 #### [facility] [address] [place], [address] Lipid Profileon 01-27-2024 Cholesterol [Mass/Vol] 135 mg/dL Normal 200 [facility] Comment on above: Result Comment: <200 mg/dL Desirable 200-240 mg/dL Borderline >240 mg/dL High Risk Performed By: #### L 501.080 #### [facility] [address] [place], [address] Cholesterol in HDL [Mass/Vol] 48 mg/dL Normal [facility] Comment on above: Result Comment: The drugs N-Acetylcysteine and Metamizole may falsely depress this assay. Reference Range HDL <40 mg/dL Low HDL Cholesterol HDL >or= 60 mg/dL High HDL Cholesterol Performed By: #### L 501.080 #### [facility] [address] [place], [address] Cholesterol in LDL [Mass/Vol] 51 mg/dL Normal 0-130 [facility] Comment on above: Performed By: #### L 501.080 #### [facility] [address] [place], [address] Cholesterol in VLDL [Mass/Vol] 36 mg/dL Normal 5-40 [facility] Comment on above: Performed By: #### L 501.080 #### [facility] [address] [place], [address] Triglyceride [Mass/Vol] 180 mg/dL Normal [facility] Comment on above: Result Comment: The drugs N-Acetylcysteine and Metamizole may falsely depress this assay. Serum Triglycerides Reference Interval Normal <150 mg/dL Borderline high 150 - 199 mg/dL High 200 - 499 mg/dL Very High > or = 500 mg/dL Performed By: #### L 501.080 #### [facility] [address] [place], [address] Microalb:Creat Ratio,Random URon 01-27-2024 Creatinine [Mass/Vol] 104.00 mg/dL Normal NO RAN GE EST. [facility] Comment on above: Performed By: #### L 501.080 #### [facility] [address] [place], [address] MALB:CRE 901.9 mg/g CRE High <30 mg/g CRE [facility] Comment on above: Performed By: #### L 501.080 #### [facility] [address] [place], [place], [id number] MICROALBUMIN,UR 938.0 mg/L Normal NO RANGE EST. [facility] Comment on above: Performed By: #### L 501.080 #### [facility] [address] [place], [place], [id number] Basophil percentageOrdered B y: Marielos Perla on 06-14-2023 Creatinine [Mass/Vol] 1.4 mg/dL 0.55-1.02 [facility] - Chemistry and C hemistry - challengeOrdered By: Marielos Perla on 06-14-2023 GFR/1.73 sq M.predicted among non-blacks MDRD (S/P/Bld) [Vol rate/Area] 40.0000 mL/min/{1.73_m2} >60 [facility] Absolute lymphocyte countOrd ered By: Marielos Perla on 11-23-2022 Lymphocytes Auto (Unsp spec) [#/Vol] 2.13 10*3/uL 0.83-4.51 [facility] Basophil percentageOrdered B y: Marielos Perla on 11-23-2022 Basophils/100 WBC (Bld) 0.9 % 0-1 [facility] Bilirubin [Mass/Vol] 0.40 mg/dL 0.20-1.00 [facility] Comment on above: For patients on eltr ombopag therapy, use of Dimension [place] TBIL is not recommended. Chloride [Moles/Vol] 106 mmol/L 98-107 [facility] Cholesterol [Mass/Vol] 165 mg/dL <200 [facility] Comment on above: <200 mg/dL Desirable 200-240 mg/dL Borderline >240 mg/dL High Risk Eosinophils/100 WBC (Bld) 7.6 % 0-5 [facility] Glucose [Mass/Vol] 183 mg/dL 74-106 [facility] Comment on above: Fasting Glucose resu lt greater than or equal to 126 mg/dL suggests DIABETES MELLITUS per A.D.A. criteria. Neutrophils (Bld) [#/Vol] 4.6 10*3/uL 2.0-7.7 [facility] Neutrophils/100 WBC (Bld) 55.9 % 47-70 [facility] Potassium [Moles/Vol] 4.3 mmol/L 3.5-5.1 [facility] Protein [Mass/Vol] 7.5 g/dL 6.4-8.2 [facility] Sodium [Moles/Vol] 138 mmol/L 136-145 [facility] Triglyceride [Mass/Vol] 241 mg/dL <199 [facility] Comment on above: The drugs N-Acetylcy steine and Metamizole may falsely depress this assay.Serum Triglycerides Reference Interval Normal <150 mg/dL Borderline high 150 - 199 mg/dL High 200 - 499 mg/dL Very High > or = 500 mg/dL WBC (Bld) [#/Vol] 8.1 10*3/uL 4.4-11.0 [facility] Blood erythrocytes count (nu mber/volume)Ordered By: Marielos Prela on 11-23-2022 RBC (Bld) [#/Vol] 4.97 10*6/uL 4.2-5.4 [facility] Blood hemoglobin measurement (mass/volume)Ordered By: Marielos Perla on 11-23-2022 Hemoglobin (Bld) [Mass/Vol] 15.5 g/dL 12.0-15.0 [facility] Blood lymphocytes/100 leukoc ytesOrdered By: Marielos Perla on 11-23-2022 Lymphocytes/100 WBC (Bld) 26.2 % 19-41 [facility] Blood monocytes/100 leukocyt esOrdered By: Marielos Perla on 11-23-2022 Monocytes/100 WBC (Bld) 9.0 % 0-10 [facility] Blood platelet mean volumeOr dered By: Marielos Perla on 11-23-2022 Platelet mean volume (Bld) [Entitic vol] 11.1 fL 6.2-12.0 [facility] Determination of erythrocyte mean corpuscular volume (MCV)Ordered By: Marielos Perla on 11-23-2022 MCV (RBC) [Entitic vol] 92.6 fL 81-99 [facility] Hematocrit Auto (Bld) [Volum e fraction]Ordered By: Marielos Perla on 11-23-2022 Hematocrit (Bld) [Volume fraction] 46.0 % 37-47 [facility] - Chemistry and C hemistry - challengeOrdered By: Marielos Perla on 11-23-2022 ALP [Catalytic activity/Vol] 65 U/L 45-117 [facility] ALT [Catalytic activity/Vol] 29 U/L 13-56 [facility] CO2 [Moles/Vol] 27.0 mmol/L 21.0-32.0 [facility] Globulin (S) [Mass/Vol] 3.9 g/dL 2.2-4.2 [facility] Urea nitrogen/Creatinine [Mass ratio] 18.0 mg/mg 10-20 [facility] - Hematology and Cell countsOrdered By: Marielos Perla on 11-23-2022 Erythrocyte distribution width (RBC) [Entitic vol] 45.6 fL 35.1-43.9 [facility] Erythrocyte distribution width (RBC) [Ratio] 13.5 % 11.6-14.6 [facility] Immature granulocytes/100 WBC (Bld) 0.400 % 0.0-0.9 [facility] Comment on above: IG% - Immature Granu locytes (promyelocytes, myelocytes and metamyelocytes) > 1% indicates that a LEFT SHIFT is Present. MCH (RBC) [Entitic mass] 31.2 pg 27.0-32.0 [facility] Nucleated RBC/100 WBC (Bld) [Ratio] 0 % 0-5 [facility] MCHC Auto (RBC) [Mass/Vol]Or dered By: Marielos Perla on 11-23-2022 MCHC (RBC) [Mass/Vol] 33.7 g/dL 32-36 [facility] No Panel InformationOrdered By: Marielos Perla on 11-23-2022 Estimated GFR (MDRD) Amer 44 mL/min >60 [facility] Comment on above: GFR Calc Estimated GFR (MDRD) Non-Af Amer 36 mL/min >60 [facility] Comment on above: Non- GFR Calc Urine Microalbumin/Creatinin e Ratio 1038.3 mg/g CRE <30 [facility] Platelets bldOrdered By: Mariposa Perla on 11-23-2022 Platelets (Bld) [#/Vol] 228 10*3/uL 150-450 [facility] Serum or plasma albumin shannon urement (mass/volume)Ordered By: Marielos Perla on 11-23-2022 Albumin [Mass/Vol] 3.6 g/dL 3.2-5.0 [facility] Serum or plasma albumin/glob ulin mass ratioOrdered By: Marielos Perla on 11-23-2022 Albumin/Globulin [Mass ratio] 0.9 {ratio} 0.9-2.4 [facility] Serum or plasma calcium shannon urement (mass/volume)Ordered By: Marielos Perla on 11-23-2022 Calcium [Mass/Vol] 9.1 mg/dL 8.5-10.1 [facility] Serum or plasma cholesterol in HDL measurement (mass/volume)Ordered By: Marielos Perla on 11-23-2022 Cholesterol in HDL [Mass/Vol] 51 mg/dL >40 [facility] Comment on above: The drugs N-Acetylcy steine and Metamizole may falsely depress this assay. Reference Range HDL <40 mg/dL Low HDL Cholesterol HDL >or= 60 mg/dL High HDL Cholesterol Serum or plasma cholesterol in VLDL measurement (mass/volume)Ordered By: Marielos Perla on 11-23-2022 Cholesterol in VLDL [Mass/Vol] 48 mg/dL 5-40 [facility] Serum or plasma creatinine m easurement (mass/volume)Ordered By: Marielos Perla on 11-23-2022 Creatinine [Mass/Vol] 1.50 mg/dL 0.55-1.02 [facility] Comment on above: The validity of the calculated GFR & GFRAA in patients over 70 years has not been determined. Clinical correlation is essential. Serum or plasma low density lipoprotein (LDL) cholesterol measurement (mass/volume)Ordered By: Marielos Perla on 11-23-2022 Cholesterol in LDL [Mass/Vol] 66 mg/dL 0-130 [facility] Serum or plasma urea nitroge n measurement (mass/volume)Ordered By: Marielos Perla on 11-23-2022 Urea nitrogen [Mass/Vol] 27 mg/dL 7-18 [facility] Thin prep Papanicolaou smear with manual screeningOrdered By: Marielos Perla on 11-23-2022 Thin prep Papanicolaou smear with manual screening 24 U/L 15-37 [facility] Thin prep Papanicolaou smear with manual screening 5 5-15 [facility] Thin prep Papanicolaou smear with manual screening 325.0 mg/L NO RANGE EST. [facility] Urine creatinine measurement (mass/volume)Ordered By: Marielos Perla on 11-23-2022 Creatinine (U) [Mass/Vol] 31.30 mg/dL NO RANGE EST. [facility] Basophil percentageOrdered B y: Charlie Johnson on 08-14-2022 Bilirubin [Mass/Vol] 0.30 mg/dL 0.20-1.00 [facility] Comment on above: For patients on eltr ombopag therapy, use of Dimension [place] TBIL is not recommended. Chloride [Moles/Vol] 109 mmol/L 98-107 [facility] Cholesterol [Mass/Vol] 185 mg/dL <200 [facility] Comment on above: <200 mg/dL Desirable 200-240 mg/dL Borderline >240 mg/dL High Risk Glucose [Mass/Vol] 70 mg/dL 74-106 [facility] Potassium [Moles/Vol] 4.2 mmol/L 3.5-5.1 [facility] Protein [Mass/Vol] 7.3 g/dL 6.4-8.2 [facility] Sodium [Moles/Vol] 141 mmol/L 136-145 [facility] Triglyceride [Mass/Vol] 360 mg/dL <199 [facility] Comment on above: The drugs N-Acetylcy steine and Metamizole may falsely depress this assay.Serum Triglycerides Reference Interval Normal <150 mg/dL Borderline high 150 - 199 mg/dL High 200 - 499 mg/dL Very High > or = 500 mg/dL WBC (Bld) [#/Vol] 10.0 10*3/uL 4.4-11.0 [facility] Blood erythrocytes count (nu mber/volume)Ordered By: Charlie Johnson on 08-14-2022 RBC (Bld) [#/Vol] 5.23 10*6/uL 4.2-5.4 [facility] Blood hemoglobin measurement (mass/volume)Ordered By: Charlie Johnson on 08-14-2022 Hemoglobin (Bld) [Mass/Vol] 15.9 g/dL 12.0-15.0 [facility] Blood platelet mean volumeOr dered By: Charlie Johnson on 08-14-2022 Platelet mean volume (Bld) [Entitic vol] 10.5 fL 6.2-12.0 [facility] Determination of erythrocyte mean corpuscular volume (MCV)Ordered By: Charlie Johnson on 08-14-2022 MCV (RBC) [Entitic vol] 95.2 fL 81-99 [facility] Direct bilirubinOrdered By: Charlie Johnson on 08-14-2022 Bilirubin.direct [Mass/Vol] 0.08 mg/dL 0.00-0.30 [facility] Hematocrit Auto (Bld) [Volum e fraction]Ordered By: Charlie Johnson on 08-14-2022 Hematocrit (Bld) [Volume fraction] 49.8 % 37-47 [facility] Laboratory - Chemistry and C hemistry - challengeOrdered By: Charlie Johnson on 08-14-2022 ALP [Catalytic activity/Vol] 68 U/L 45-117 [facility] ALT [Catalytic activity/Vol] 25 U/L 13-56 [facility] CO2 [Moles/Vol] 28.0 mmol/L 21.0-32.0 [facility] Globulin (S) [Mass/Vol] 4.0 g/dL 2.2-4.2 [facility] Natriuretic peptide B (Bld) [Mass/Vol] 336.8 pg/mL 0-100 [facility] Urea nitrogen/Creatinine [Mass ratio] 19.0 mg/mg 10-20 [facility] Laboratory - Hematology and Cell countsOrdered By: Charlie Johnson on 08-14-2022 Erythrocyte distribution width (RBC) [Entitic vol] 48.3 fL 35.1-43.9 [facility] Erythrocyte distribution width (RBC) [Ratio] 13.8 % 11.6-14.6 [facility] MCH (RBC) [Entitic mass] 30.4 pg 27.0-32.0 [facility] MCHC Auto (RBC) [Mass/Vol]Or dered By: Charlie Johnson on 08-14-2022 MCHC (RBC) [Mass/Vol] 31.9 g/dL 32-36 [facility] No Panel InformationOrdered By: Charlie Johnson on 08-14-2022 Estimated GFR (MDRD) Amer 49 mL/min >60 [facility] Comment on above: GFR Calc Estimated GFR (MDRD) Non-Af Amer 40 mL/min >60 [facility] Comment on above: Non- GFR Calc Platelets bldOrdered By: Liban Johnson on 08-14-2022 Platelets (Bld) [#/Vol] 309 10*3/uL 150-450 [facility] Serum or plasma albumin shannon urement (mass/volume)Ordered By: Charlie Johnson on 08-14-2022 Albumin [Mass/Vol] 3.3 g/dL 3.2-5.0 [facility] Serum or plasma calcium shannon urement (mass/volume)Ordered By: Charlie Johnson on 08-14-2022 Calcium [Mass/Vol] 9.3 mg/dL 8.5-10.1 [facility] Serum or plasma cholesterol in HDL measurement (mass/volume)Ordered By: Charlie Johnson on 08-14-2022 Cholesterol in HDL [Mass/Vol] 48 mg/dL >40 [facility] Comment on above: The drugs N-Acetylcy steine and Metamizole may falsely depress this assay. Reference Range HDL <40 mg/dL Low HDL Cholesterol HDL >or= 60 mg/dL High HDL Cholesterol Serum or plasma cholesterol in VLDL measurement (mass/volume)Ordered By: Charlie Johnson on 08-14-2022 Cholesterol in VLDL [Mass/Vol] 72 mg/dL 5-40 [facility] Serum or plasma creatinine m easurement (mass/volume)Ordered By: Charlie Johnson on 08-14-2022 Creatinine [Mass/Vol] 1.37 mg/dL 0.55-1.02 [facility] Comment on above: The validity of the calculated GFR & GFRAA in patients over 70 years has not been determined. Clinical correlation is essential. Serum or plasma low density lipoprotein (LDL) cholesterol measurement (mass/volume)Ordered By: Charlie Johnson on 08-14-2022 Cholesterol in LDL [Mass/Vol] 65 mg/dL 0-130 [facility] Serum or plasma urea nitroge n measurement (mass/volume)Ordered By: Charlie Johnson on 08-14-2022 Urea nitrogen [Mass/Vol] 26 mg/dL 7-18 [facility] Thin prep Papanicolaou smear with manual screeningOrdered By: Charlie Johnson on 08-14-2022 Thin prep Papanicolaou smear with manual screening 24 U/L 15-37 [facility] Thin prep Papanicolaou smear with manual screening 4 5-15 [facility] Basophil percentageOrdered B y: Charlie Johnson on 02-25-2022 Bilirubin [Mass/Vol] 0.30 mg/dL 0.20-1.00 [facility] Comment on above: For patients on eltr ombopag therapy, use of Dimension [place] TBIL is not recommended. Cholesterol [Mass/Vol] 156 mg/dL <200 [facility] Comment on above: <200 mg/dL Desirable 200-240 mg/dL Borderline >240 mg/dL High Risk Protein [Mass/Vol] 6.7 g/dL 6.4-8.2 [facility] Triglyceride [Mass/Vol] 213 mg/dL <199 [facility] Comment on above: The drugs N-Acetylcy steine and Metamizole may falsely depress this assay.Serum Triglycerides Reference Interval Normal <150 mg/dL Borderline high 150 - 199 mg/dL High 200 - 499 mg/dL Very High > or = 500 mg/dL Direct bilirubinOrdered By: Charlie Johnson on 02-25-2022 Bilirubin.direct [Mass/Vol] 0.11 mg/dL 0.00-0.30 [facility] Laboratory - Chemistry and C hemistry - challengeOrdered By: Charlie Johnson on 02-25-2022 ALP [Catalytic activity/Vol] 57 U/L 45-117 [facility] ALT [Catalytic activity/Vol] 26 U/L 13-56 [facility] Globulin (S) [Mass/Vol] 3.5 g/dL 2.2-4.2 [facility] Serum or plasma albumin shannon urement (mass/volume)Ordered By: Charlie Johnson on 02-25-2022 Albumin [Mass/Vol] 3.2 g/dL 3.2-5.0 [facility] Serum or plasma cholesterol in HDL measurement (mass/volume)Ordered By: Charlie Johnson on 02-25-2022 Cholesterol in HDL [Mass/Vol] 50 mg/dL >40 [facility] Comment on above: The drugs N-Acetylcy steine and Metamizole may falsely depress this assay. Reference Range HDL <40 mg/dL Low HDL Cholesterol HDL >or= 60 mg/dL High HDL Cholesterol Serum or plasma cholesterol in VLDL measurement (mass/volume)Ordered By: Charlie Johnson on 02-25-2022 Cholesterol in VLDL [Mass/Vol] 43 mg/dL 5-40 [facility] Serum or plasma low density lipoprotein (LDL) cholesterol measurement (mass/volume)Ordered By: Charlie Johnson on 02-25-2022 Cholesterol in LDL [Mass/Vol] 63 mg/dL 0-130 [facility] Thin prep Papanicolaou smear with manual screeningOrdered By: Charlie Johnson on 02-25-2022 Thin prep Papanicolaou smear with manual screening 18 U/L 15-37 [facility] Basic Metabolic Panelon 02-17 Calcium [Mass/Vol] 9.2 mg/dL Normal 8.4-10.4 [facility] Comment on above: Performed By: #### B GLU #### [facility] [address] [place], [place] Glucose [Mass/Vol] 170 mg/dL High 70-100 [facility] Comment on above: Performed By: #### B GLU #### [facility] [address] [place], [place] Anion gap [Moles/Vol] 11 Normal [facility] Comment on above: Performed By: #### B GLU #### [facility] [address] [place], [place] CO2 [Moles/Vol] 25 mmol/L Normal 22-30 [facility] Comment on above: Performed By: #### B GLU #### [facility] [address] [place], [place] Creatinine [Mass/Vol] 1.21 mg/dL Normal 0.52-1.25 [facility] Comment on above: Performed By: #### B GLU #### [address] [address] [address] [place], [place] GFR/1.73 sq M predicted among blacks MDRD (S/P/Bld) [Vol rate/Area] 53.5 mL/min/{1.73_m2} Normal >60 [facility] Comment on above: Performed By: #### B GLU #### [facility] [address] [place], [place] GFR/1.73 sq M predicted among non-blacks MDRD (S/P/Bld) [Vol rate/Area] 44.1 mL/min/{1.73_m2} Normal >60 [facility] Comment on above: Result Comment: Sour ce- MDRD equation with creatinine calibration to IDMS(NKDEP) eGFR not recommended for drug dose adjustment Performed By: #### B GLU #### [address] [address] [address] [place], [place] Urea nitrogen [Mass/Vol] 28 mg/dL High 7-20 [facility] Comment on above: Performed By: #### B GLU #### [address] [address] [address] [place], [place] Chloride [Moles/Vol] 102 mmol/L Normal 98-107 [facility] Comment on above: Performed By: #### B GLU #### [address] [address] [address] [place], [place] Potassium [Moles/Vol] 4.6 mmol/L Normal 3.5-5.1 [facility] Comment on above: Performed By: #### B GLU #### [address] [address] [address] [place], [place] Sodium [Moles/Vol] 138 mmol/L Normal 135-145 [facility] Comment on above: Performed By: #### B GLU #### [address] [address] [address] [place], [place] Anion gap [Moles/Vol] 11 mmol/L [facility], [place] Calcium [Mass/Vol] 9.2 mg/dL 8.4 - 10. 4 mg/dL [place], [place] Chloride [Moles/Vol] 102 mmol/L 98 - 10 7 mmol/L [place] CO2 [Moles/Vol] 25 mmol/L 22 - 30 mmol/L [place] Creatinine [Mass/Vol] 1.21 mg/dL 0.52 - 1.25 mg/dL [place] EGFR IF NonAfrican [place] 44.1 mL/min >60 [place] Comment on above: Source- MDRD equatio n with creatinine calibration to IDMS(NKDEP) eGFR not recommended for drug dose adjustment GFR/1.73 sq M predicted among blacks MDRD (S/P/Bld) [Vol rate/Area] 53.5 mL/min/{1.73_m2} >60 [place] Glucose [Mass/Vol] 170 mg/dL High 70 - 100 mg/dL [place] Interpretation and review of laboratory results Abnormal [place] Potassium [Moles/Vol] 4.6 mmol/L 3.5 - 5.1 mmol/L [place] Sodium [Moles/Vol] 138 mmol/L 135 - 145 mmol/L [place] Urea nitrogen [Mass/Vol] 28 mg/dL High 7 - 20 mg/dL [place] Test Performed by [address] [address] [place] CBCon 03-03-2019 Erythrocyte distribution width (RBC) [Ratio] 13.1 % 11.5 - 14.5 % [place] Hematocrit (Bld) [Volume fraction] 32.0 % Low 35 - 47 % [place] Hemoglobin (Bld) [Mass/Vol] 10.6 g/dL Low 11.7 - 16 g/dL [place] Interpretation and review of laboratory results Abnormal [place] MCH (RBC) [Entitic mass] 30.4 pg 26 - 34 pg [place] MCHC (RBC) [Mass/Vol] 33.1 % 32 - 36 % [place] MCV (RBC) [Entitic vol] 91.7 fL 79 - 98 fL [place] Platelet mean volume (Bld) [Entitic vol] 9.4 fL 7.4 - 10.4 fL [place] Platelets (Bld) [#/Vol] 201 10*3/uL 140 - 440 10*3/uL [place] RBC (Bld) [#/Vol] 3.49 10*6/uL Low 3.8 - 5.2 10*6/uL [place] WBC (Bld) [#/Vol] 16.2 10*3/uL High 3.6 - 10.7 10*3/uL [place] Test Performed by [facility], [address] [place] [address] [place] CR Chest Portableon 03-03-20 19 CR Chest Portable Patient Name: CHRISTY FRANCIS Diagnostic Radiology Exam Date/Time 03/03/2019 05:56:23 EST Exam CR Chest Portable Ordering Physician GRANT TAYLOR Accession Number [id number] CPT4 Codes 16532 () Reason For Exam POST OP OPEN [...] Transcribed Date and Time: 03/03/2019 6:46 Normal [facility] Glucose,Bedsideon 03-03-2019 Glucose [Mass/Vol] 220 mg/dL High 70-100 [facility] Comment on above: Result Comment: Test performed by glucose meter. Results may be 10%-15% lower than serum/plasma values. (CLIA ID [id number]) Performed By: #### B GLU #### [address] [place] [address] [place] [address] Glucose [Mass/Vol] 224 mg/dL High 70-100 [facility] Comment on above: Result Comment: Test performed by glucose meter. Results may be 10%-15% lower than serum/plasma values. (CLIA ID [id number]) Performed By: #### B GLU #### [address] [place], [place] Hemogramon 03-03-2019 Erythrocyte distribution width (RBC) [Ratio] 13.1 % Normal 11.5-14.5 [facility] Comment on above: Performed By: #### B GLU #### [address] [address] [address] [place], [place] Hematocrit (Bld) [Volume fraction] 32.0 % Low 35.0-47.0 [facility] Comment on above: Performed By: #### B GLU #### [address] [address] [address] [place], [place] Hemoglobin (Bld) [Mass/Vol] 10.6 g/dL Low 11.7-16.0 [facility] Comment on above: Performed By: #### B GLU #### [address] [place] [address] [address] [place], [place] MCH (RBC) [Entitic mass] 30.4 pg Normal 26.0-34.0 [facility] Comment on above: Performed By: #### B GLU #### [address] [address] [address] [place], [place] MCHC (RBC) [Mass/Vol] 33.1 % Normal 32.0-36.0 [facility] Comment on above: Performed By: #### B GLU #### [address] [address] [address] [place], [place] MCV (RBC) [Entitic vol] 91.7 fL Normal 79.0-98.0 [facility] Comment on above: Performed By: #### B GLU #### [address] Platelet mean volume (Bld) [Entitic vol] 9.4 fL Normal 7.4-10.4 [facility] Comment on above: Performed By: #### B GLU #### [address] Platelets (Bld) [#/Vol] 201 10*3/uL Normal 140-440 [facility] Comment on above: Performed By: #### B GLU #### [facility] [address] [place], [place] RBC (Bld) [#/Vol] 3.49 10*6/uL Low 3.80-5.20 [facility] Comment on above: Performed By: #### B GLU #### [facility] [address] [place], [place] WBC (Bld) [#/Vol] 16.2 10*3/uL High 3.6-10.7 [facility] Comment on above: Performed By: #### B GLU #### [facility] [address] [place], [place] POCT Glucoseon 03-03-2019 Glucose [Mass/Vol] 220 mg/dL High 70 - 100 mg/dL [place] Comment on above: Test performed by gl ucose meter. Results may be 10%-15% lower than serum/plasma values. (CLIA ID [id number]) Interpretation and review of laboratory results Abnormal [facility] [place] Test Performed by [facility], [address] [place] [address] [place] Glucose [Mass/Vol] 224 mg/dL High 70 - 100 mg/dL [place] Comment on above: Test performed by gl ucose meter. Results may be 10%-15% lower than serum/plasma values. (CLIA ID [id number]) Interpretation and review of laboratory results Abnormal [facility] [place] Test Performed by [facility], [address] [place] [address] [place] XR CHEST PORTABLEon 03-03-20 19 Brian, [facility] - 03/03/2019 6:48 AM EST Patient Name: CHRISTY FRANCIS ---Diagnostic Radiology--- Exam Date/Time 03/03/2019 05:56:23 EST Exam CR Chest Portable Ordering Physician GRANT TAYLOR Accession Number [id number] CPT4 Codes 17405 () Reason For Exam POST OP OPEN [...] JEFFREY Transcribed Date and Time: 03/03/2019 6:46 [place] Patient Name: CHRISTY FRANCIS ---Diagnostic Radiology--- Exam Date/Time 03/03/2019 05:56:23 EST Exam CR Chest Portable Ordering Physician GRANT TAYLOR Accession Number [id number] CPT4 Codes 50368 () Reason For Exam POST OP OPEN [...] No new abnormality. Report Dictated on Workstation: [id number] --- Final --- Dictated: 03/03/2019 6:46 am Dictating Physician: MD SOLORZANO JEFFREY Signed Date and Time: 03/03/2019 6:46 am Signed by: MD SOLORZANO JEFFREY Transcribed Date and Time: 03/03/2019 6:46 [place] Basic Metabolic Panelon 02-17 Calcium [Mass/Vol] 9.3 mg/dL Normal 8.4-10.4 [facility] Comment on above: Performed By: #### B GLU #### [facility] [address] [place], [place] Anion gap [Moles/Vol] 10 Normal [facility] Comment on above: Performed By: #### B GLU #### [facility] [address] [place], [place] CO2 [Moles/Vol] 22 mmol/L Normal 22-30 [facility] Comment on above: Performed By: #### B GLU #### [address] [address] [address] [place], [place] Creatinine [Mass/Vol] 1.24 mg/dL Normal 0.52-1.25 [facility] Comment on above: Performed By: #### B GLU #### [address] [address] [address] [place], [place] GFR/1.73 sq M predicted among blacks MDRD (S/P/Bld) [Vol rate/Area] 52.0 mL/min/{1.73_m2} Normal >60 [facility] Comment on above: Performed By: #### B GLU #### [address] [address] [address] [place], [place] GFR/1.73 sq M predicted among non-blacks MDRD (S/P/Bld) [Vol rate/Area] 42.9 mL/min/{1.73_m2} Normal >60 [facility] Comment on above: Result Comment: Sour ce- MDRD equation with creatinine calibration to IDMS(NKDEP) eGFR not recommended for drug dose adjustment Performed By: #### B GLU #### [facility] [address] [place], [place] Glucose [Mass/Vol] 253 mg/dL High 70-100 [facility] Comment on above: Performed By: #### B GLU #### [address] [address] [address] [place], [place] Urea nitrogen [Mass/Vol] 32 mg/dL High 7-20 [facility] Comment on above: Performed By: #### B GLU #### [address] [address] [address] [place], [place] Chloride [Moles/Vol] 104 mmol/L Normal 98-107 [facility] Comment on above: Performed By: #### B GLU #### [facility] [address] [place] [address] Potassium [Moles/Vol] 5.0 mmol/L Normal 3.5-5.1 [facility] Comment on above: Performed By: #### B GLU #### [facility] [address] [place] [address] Sodium [Moles/Vol] 135 mmol/L Normal 135-145 [facility] Comment on above: Performed By: #### B GLU #### [facility] [address] [place] [address] Anion gap [Moles/Vol] 10 mmol/L [place], [place] Calcium [Mass/Vol] 9.3 mg/dL 8.4 - 10. 4 mg/dL [place] Chloride [Moles/Vol] 104 mmol/L 98 - 10 7 mmol/L [place] CO2 [Moles/Vol] 22 mmol/L 22 - 30 mmol/L [place] Creatinine [Mass/Vol] 1.24 mg/dL 0.52 - 1.25 mg/dL [place] EGFR IF NonAfrican [place] 42.9 mL/min >60 [place] Comment on above: Source- MDRD equatio n with creatinine calibration to IDMS(NKDEP) eGFR not recommended for drug dose adjustment GFR/1.73 sq M predicted among blacks MDRD (S/P/Bld) [Vol rate/Area] 52.0 mL/min/{1.73_m2} >60 [place] Glucose [Mass/Vol] 253 mg/dL High 70 - 100 mg/dL [place] Interpretation and review of laboratory results Abnormal [place] Potassium [Moles/Vol] 5.0 mmol/L 3.5 - 5.1 mmol/L [place] Sodium [Moles/Vol] 135 mmol/L 135 - 145 mmol/L [place] Urea nitrogen [Mass/Vol] 32 mg/dL High 7 - 20 mg/dL [place] Test Performed by [facility], [address] [place] [address] [place] CBCon 03-02-2019 Erythrocyte distribution width (RBC) [Ratio] 13.2 % 11.5 - 14.5 % [place] Hematocrit (Bld) [Volume fraction] 33.8 % Low 35 - 47 % [place] Hemoglobin (Bld) [Mass/Vol] 11.0 g/dL Low 11.7 - 16 g/dL [place] Interpretation and review of laboratory results Abnormal [place] MCH (RBC) [Entitic mass] 30.3 pg 26 - 34 pg [place] MCHC (RBC) [Mass/Vol] 32.6 % 32 - 36 % [place] MCV (RBC) [Entitic vol] 92.7 fL 79 - 98 fL [place] Platelet mean volume (Bld) [Entitic vol] 10.7 fL High 7.4 - 10.4 fL [place] Platelets (Bld) [#/Vol] 169 10*3/uL 140 - 440 10*3/uL [place] RBC (Bld) [#/Vol] 3.65 10*6/uL Low 3.8 - 5.2 10*6/uL [place] WBC (Bld) [#/Vol] 18.8 10*3/uL High 3.6 - 10.7 10*3/uL [place] Test Performed by [address] [address] [place] CR Chest Portableon 03-02-20 19 CR Chest Portable Patient Name: CHRISTY FRANCIS Diagnostic Radiology Exam Date/Time 03/02/2019 06:07:22 EST Exam CR Chest Portable Ordering Physician GRANT TAYLOR Accession Number [id number] CPT4 Codes 63581 () Reason For Exam POST OP OPEN [...] Dictated: 03/02/2019 6:14 am Dictating Physician: MD SOLOZRANO JEFFREY Signed Date and Time: 03/02/2019 6:16 am Signed by: MD SOLORZANO JEFFREY Transcribed Date and Time: 03/02/2019 6:14 Normal [facility] Echocardiogram transesophage pedro pablo 03-02-2019 Brian, [facility] Incoming Cardiology Results From [facility] - 03/02/2019 8:47 AM EST TRANSESOPHAGEAL ECHOCARDIOGRAM Intraoperative-Pre Pump Only PATIENT: Christy Francis STUDY DATE: 02/27/2019 : 1950 AGE: 69 HT/WT: 154.9 cm (61 80 kg in) (176 lb) GENDER: F BP: 98 / 57 LOCATION: [facility] PATIENT Inpatient [facility] STATUS: *ORDERING PHYSICIAN: * oRnda Carmona *READING PHYSICIAN: * Michi Dewitt, *SOLAR INSTALLER: Janice Austin MD [facility] INDICATIONS: CABG. CONCLUSIONS SUMMARY: 1. [...] Michi Dewitt MD 03/02/2019 08:46 Prior Signatures: [facility] [place], [place] TRANSESOPHAGEAL ECHOCARDIOGRAM Intraoperative-Pre Pump Only PATIENT: Christy Francis STUDY DATE: 02/27/2019 : 1950 AGE: 69 HT/WT: 154.9 cm (61 80 kg in) (176 lb) GENDER: F BP: 98 / 57 LOCATION: [facility] PATIENT Inpatient [facility] STATUS: *ORDERING PHYSICIAN: * Ronda Carmona *READING PHYSICIAN: * Michi Dewitt, *SOLAR INSTALLER: * Janice Trivedi MD [facility] INDICATIONS: CABG. CONCLUSIONS SUMMARY: 1. [...] Michi Dewitt MD 03/02/2019 08:46 Prior Signatures: [facility], [place] Glucose,Bedsideon 03-02-2019 Glucose [Mass/Vol] 168 mg/dL High 70-100 [facility] Comment on above: Result Comment: Test performed by glucose meter. Results may be 10%-15% lower than serum/plasma values. (CLIA ID [id number]) Performed By: #### B GLU #### [address] [address] [address] [place], [place] Glucose [Mass/Vol] 249 mg/dL High 70-100 [facility] Comment on above: Result Comment: Test performed by glucose meter. Results may be 10%-15% lower than serum/plasma values. (CLIA ID [id number]) Performed By: #### B GLU #### [address] [address] [place], [place] Glucose [Mass/Vol] 324 mg/dL High 70-100 [facility] Comment on above: Result Comment: Test performed by glucose meter. Results may be 10%-15% lower than serum/plasma values. (CLIA ID [id number]) Performed By: #### B GLU #### [address] [place], [place] Glucose [Mass/Vol] 347 mg/dL High 70-100 [facility] Comment on above: Result Comment: Test performed by glucose meter. Results may be 10%-15% lower than serum/plasma values. (CLIA ID [id number]) Performed By: #### B GLU #### [address] [place], [place] Hemogramon 03-02-2019 Erythrocyte distribution width (RBC) [Ratio] 13.2 % Normal 11.5-14.5 [facility] Comment on above: Performed By: #### B GLU #### [address] [address] [place], [place] Hematocrit (Bld) [Volume fraction] 33.8 % Low 35.0-47.0 [facility] Comment on above: Performed By: #### B GLU #### [address] [place], [place] Hemoglobin (Bld) [Mass/Vol] 11.0 g/dL Low 11.7-16.0 [facility] Comment on above: Performed By: #### B GLU #### [address] [address] [place], [place] MCH (RBC) [Entitic mass] 30.3 pg Normal 26.0-34.0 [facility] Comment on above: Performed By: #### B GLU #### [facility] [address] [place], [place] MCHC (RBC) [Mass/Vol] 32.6 % Normal 32.0-36.0 [facility] Comment on above: Performed By: #### B GLU #### [facility] [address] [place], [place] MCV (RBC) [Entitic vol] 92.7 fL Normal 79.0-98.0 [facility] Comment on above: Performed By: #### B GLU #### [address] [place], [place] Platelet mean volume (Bld) [Entitic vol] 10.7 fL High 7.4-10.4 [facility] Comment on above: Performed By: #### B GLU #### [address] [place] [place], [place] Platelets (Bld) [#/Vol] 169 10*3/uL Normal 140-440 [facility] Comment on above: Performed By: #### B GLU #### [address] [address] [place], [place] RBC (Bld) [#/Vol] 3.65 10*6/uL Low 3.80-5.20 [facility] Comment on above: Performed By: #### B GLU #### [address] [place], [place] WBC (Bld) [#/Vol] 18.8 10*3/uL High 3.6-10.7 [facility] Comment on above: Performed By: #### B GLU #### [address] [place] [address] [place], [place] POCT Glucoseon 03-02-2019 Glucose [Mass/Vol] 168 mg/dL High 70 - 100 mg/dL [facility], [place] Comment on above: Test performed by ucose meter. Results may be 10%-15% lower than serum/plasma values. (CLIA ID [id number]) Interpretation and review of laboratory results Abnormal [facility] [place] Test Performed by [facility], [address] [facility] [place] [address] [facility] [place] Glucose [Mass/Vol] 249 mg/dL High 70 - 100 mg/dL [facility] [place] Comment on above: Test performed by gl ucose meter. Results may be 10%-15% lower than serum/plasma values. (CLIA ID [id number]) Interpretation and review of laboratory results Abnormal [facility] [place] Test Performed by [facility], [address] [place] [place] [address] [facility] [place] Glucose [Mass/Vol] 324 mg/dL High 70 - 100 mg/dL [facility] [place] Comment on above: Test performed by gl ucose meter. Results may be 10%-15% lower than serum/plasma values. (CLIA ID [id number]) Interpretation and review of laboratory results Abnormal [facility] [place] Test Performed by [facility] [facility], [address] [facility] [place] [place] [address] [facility] [place] Glucose [Mass/Vol] 347 mg/dL High 70 - 100 mg/dL [facility] [place] Comment on above: Test performed by gl ucose meter. Results may be 10%-15% lower than serum/plasma values. (CLIA ID [id number]) Interpretation and review of laboratory results Abnormal [facility] [place] Test Performed by [facility], [address] [place] [address] [facility] [place] XR CHEST PORTABLEon 03-02-20 19 Brian, [facility] Incoming Radiology Results From [facility] - 03/02/2019 6:17 AM EST Patient Name: CHRISTY FRANCIS ---Diagnostic Radiology--- Exam Date/Time 03/02/2019 06:07:22 EST Exam CR Chest Portable Ordering Physician GRANT TAYLOR Accession Number [id number] CPT4 Codes 40610 () Reason For Exam POST OP OPEN [...] JEFFREY Transcribed Date and Time: 03/02/2019 6:14 [place] Patient Name: CHRISTY FRANCIS ---Diagnostic Radiology--- Exam Date/Time 03/02/2019 06:07:22 EST Exam CR Chest Portable Ordering Physician GRANT TAYLOR Accession Number [id number] CPT4 Codes 95278 () Reason For Exam POST OP OPEN [...] JEFFREY Transcribed Date and Time: 03/02/2019 6:14 [place] Basic Metabolic Panelon 02-17 Calcium [Mass/Vol] 8.9 mg/dL Normal 8.4-10.4 [facility] Comment on above: Performed By: #### B GLU #### [address] [address] Glucose [Mass/Vol] 293 mg/dL High 70-100 [facility] Comment on above: Performed By: #### B GLU #### [facility] [address] [place], [place] Anion gap [Moles/Vol] 11 Normal [facility] Comment on above: Performed By: #### B GLU #### [facility] [address] [place] [place], [place] CO2 [Moles/Vol] 20 mmol/L Low 22-30 [facility] Comment on above: Performed By: #### B GLU #### [place] [address] [address] [place], [place] Creatinine [Mass/Vol] 1.40 mg/dL High 0.52-1.25 [facility] Comment on above: Performed By: #### B GLU #### [place] [address] [address] [place], [place] GFR/1.73 sq M predicted among blacks MDRD (S/P/Bld) [Vol rate/Area] 45.2 mL/min/{1.73_m2} Normal >60 [facility] Comment on above: Performed By: #### B GLU #### [place] [address] [address] [place], [place] GFR/1.73 sq M predicted among non-blacks MDRD (S/P/Bld) [Vol rate/Area] 37.3 mL/min/{1.73_m2} Normal >60 [facility] Comment on above: Result Comment: Sour ce- MDRD equation with creatinine calibration to IDMS(NKDEP) eGFR not recommended for drug dose adjustment Performed By: #### B GLU #### [facility] [address] [place], [place] Urea nitrogen [Mass/Vol] 33 mg/dL High 7-20 [facility] Comment on above: Performed By: #### B GLU #### [facility] [address] [place], [place] Chloride [Moles/Vol] 102 mmol/L Normal 98-107 [facility] Comment on above: Performed By: #### B GLU #### [place] [address] [address] [place], [place] Potassium [Moles/Vol] 5.5 mmol/L High 3.5-5.1 [facility] Comment on above: Performed By: #### B GLU #### [facility] [address] [place], [place] Sodium [Moles/Vol] 132 mmol/L Low 135-145 [facility] Comment on above: Performed By: #### B GLU #### [facility] [address] [place], [place] Anion gap [Moles/Vol] 11 mmol/L [facility], [place] Calcium [Mass/Vol] 8.9 mg/dL 8.4 - 10. 4 mg/dL [place], [place] Chloride [Moles/Vol] 102 mmol/L 98 - 10 7 mmol/L [facility], [place] CO2 [Moles/Vol] 20 mmol/L Low 22 - 30 mmol/L [place], [place] Creatinine [Mass/Vol] 1.4 mg/dL High 0.52 - 1.25 mg/dL [facility], [place] EGFR IF NonAfrican Hungarian 37.3 mL/min >60 [place] Comment on above: Source- MDRD equatio n with creatinine calibration to IDMS(NKDEP) eGFR not recommended for drug dose adjustment GFR/1.73 sq M predicted among blacks MDRD (S/P/Bld) [Vol rate/Area] 45.2 mL/min/{1.73_m2} >60 [facility], [place] Glucose [Mass/Vol] 293 mg/dL High 70 - 100 mg/dL [place], [place] Interpretation and review of laboratory results Abnormal [place] Potassium [Moles/Vol] 5.5 mmol/L High 3.5 - 5.1 mmol/L [facility], [place] Sodium [Moles/Vol] 132 mmol/L Low 135 - 145 mmol/L [facility], [place] Urea nitrogen [Mass/Vol] 33 mg/dL High 7 - 20 mg/dL [place], [place] Test Performed by [facility], [address], [place], [place] Calcium [Mass/Vol] 9.1 mg/dL Normal 8.4-10.4 [facility] Comment on above: Performed By: #### H AUSTIN BMP3, MG3 ####[email or web address] [place] [place] Anion gap [Moles/Vol] 10 Normal [facility] Comment on above: Performed By: #### H AUSTIN BMP3, MG3 ####[facility] [id number] [place] CO2 [Moles/Vol] 22 mmol/L Normal 22-30 [facility] Comment on above: Performed By: #### H AUSTIN BMP3, MG3 ####[email or web address] [place] Creatinine [Mass/Vol] 1.63 mg/dL High 0.52-1.25 [facility] Comment on above: Performed By: #### H AUSTIN BMP3, MG3 ####[email or web address] [place] GFR/1.73 sq M predicted among blacks MDRD (S/P/Bld) [Vol rate/Area] 37.9 mL/min/{1.73_m2} Normal >60 [facility] Comment on above: Performed By: #### H AUSTIN BMP3, MG3 ####[email or web address] [place] GFR/1.73 sq M predicted among non-blacks MDRD (S/P/Bld) [Vol rate/Area] 31.3 mL/min/{1.73_m2} Normal >60 [facility] Comment on above: Result Comment: Sour ce- MDRD equation with creatinine calibration to IDMS(NKDEP) eGFR not recommended for drug dose adjustment Performed By: #### H AUSTIN, BMP3, MG3 ####[email or web address] [place], [place] Glucose [Mass/Vol] 90 mg/dL Normal 70-100 [facility] Comment on above: Performed By: #### H AUSTIN BMP3, MG3 ####[facility] [place] [address] Urea nitrogen [Mass/Vol] 32 mg/dL High 7-20 [facility] Comment on above: Performed By: #### H SANGEETA AVILA3, MG3 ####[facility] [place] [address] Chloride [Moles/Vol] 108 mmol/L High 98-107 [facility] Comment on above: Performed By: #### H SANGEETA AVILA3, MG3 ####[facility] [place] [address] Potassium [Moles/Vol] 5.7 mmol/L High 3.5-5.1 [facility] Comment on above: Performed By: #### H SANGEETA AVILA3, MG3 ####[facility] [place] [address] Sodium [Moles/Vol] 140 mmol/L Normal 135-145 [facility] Comment on above: Performed By: #### H SANGEETA AVILA3, MG3 ####[facility] [place] [address] Anion gap [Moles/Vol] 10 mmol/L [place], [place] Calcium [Mass/Vol] 9.1 mg/dL 8.4 - 10. 4 mg/dL [place] Chloride [Moles/Vol] 108 mmol/L High 98 - 10 7 mmol/L [place] CO2 [Moles/Vol] 22 mmol/L 22 - 30 mmol/L [place] Creatinine [Mass/Vol] 1.63 mg/dL High 0.52 - 1.25 mg/dL [place] EGFR IF NonAfrican Hungarian 31.3 mL/min >60 [place] Comment on above: Source- MDRD equatio n with creatinine calibration to IDMS(NKDEP) eGFR not recommended for drug dose adjustment GFR/1.73 sq M predicted among blacks MDRD (S/P/Bld) [Vol rate/Area] 37.9 mL/min/{1.73_m2} >60 [place] Glucose [Mass/Vol] 90 mg/dL 70 - 100 mg/dL [place] Interpretation and review of laboratory results Abnormal [place] Potassium [Moles/Vol] 5.7 mmol/L High 3.5 - 5.1 mmol/L [place] Sodium [Moles/Vol] 140 mmol/L 135 - 145 mmol/L [place] Urea nitrogen [Mass/Vol] 32 mg/dL High 7 - 20 mg/dL [place] CBCon 03-01-2019 Erythrocyte distribution width (RBC) [Ratio] 13.5 % 11.5 - 14.5 % [place] Hematocrit (Bld) [Volume fraction] 34.2 % Low 35 - 47 % [place] Hemoglobin (Bld) [Mass/Vol] 11.1 g/dL Low 11.7 - 16 g/dL [place] Interpretation and review of laboratory results Abnormal [place] MCH (RBC) [Entitic mass] 30.1 pg 26 - 34 pg [place] MCHC (RBC) [Mass/Vol] 32.4 % 32 - 36 % [place], [place] MCV (RBC) [Entitic vol] 92.9 fL 79 - 98 fL [place], [place] Platelet mean volume (Bld) [Entitic vol] 9.8 fL 7.4 - 10.4 fL [place], [place] Platelets (Bld) [#/Vol] 151 10*3/uL 140 - 440 10*3/uL [place] RBC (Bld) [#/Vol] 3.68 10*6/uL Low 3.8 - 5.2 10*6/uL [place] WBC (Bld) [#/Vol] 17.8 10*3/uL High 3.6 - 10.7 10*3/uL [place], [place] CR Chest Portableon 03-01-20 19 CR Chest Portable Patient Name: CHRISTY FRANCIS Diagnostic Radiology Exam Date/Time 03/01/2019 07:10:13 EST Exam CR Chest Portable Ordering Physician GRANT TAYLOR Accession Number [id number] CPT4 Codes 88397 () Reason For Exam sob Report CLINICAL INFORMATION: Shortness of breath. Status post open heart surgery. CHEST X-RAY, PORTABLE, 0537 hours: An AP portable view is compared to the prior examination of previous day. There is no change in the mediastinal or left lower hemithorax chest tubes or right internal jugular Os[place]-Jose introducer sheath. There is stable slightly limited lung volumes. No pneumothorax or other acute process or interval change identified. 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 : 1950 Requested By: GRANT TAYLOR A Order Number: [id number] Reading MD: Saray Yates Measurements Intervals [place] Rate: 97 P: 62 SC: 139 QRS: 28 QRSD: 67 T: 83 QT: 327 QTc: 416 Interpretive Statements Sinus rhythm Inferior infarct, acute Electronically Signed On 03-01-2019 9:20:04 EST by [facility] Incoming Cardiology Results From [facility] - 03/01/2019 9:21 AM EST [facility] Test Date: 2019-03-01 Pat Name: Christy Francis Department: [facility] Room: [id number] Gender: F Wrapper Leaf Inspector: MG : 1950 Requested By: GRANT TAYLOR A Order Number: [id number] Reading MD: Saray Yates Measurements Intervals [place] Rate: 97 P: 62 SC: 139 QRS: 28 QRSD: 67 T: 83 QT: 327 QTc: 416 Interpretive Statements Sinus rhythm Inferior infarct, acute Electronically Signed On 03-01-2019 9:20:04 EST by [facility] [place], [place] Glucose,Bedsideon 03-01-2019 Glucose [Mass/Vol] 334 mg/dL High 70-100 [facility] Comment on above: Result Comment: Test performed by glucose meter. Results may be 10%-15% lower than serum/plasma values. (CLIA ID [id number]) Performed By: #### B GLU #### [facility] [address] [place] [address] Glucose [Mass/Vol] 357 mg/dL High 70-100 [facility] Comment on above: Result Comment: Test performed by glucose meter. Results may be 10%-15% lower than serum/plasma values. (CLIA ID [id number]) Performed By: #### B GLU #### [facility] [address] [place] [address] Glucose [Mass/Vol] 92 mg/dL Normal 70-100 [facility] Comment on above: Result Comment: Test performed by glucose meter. Results may be 10%-15% lower than serum/plasma values. (CLIA ID [id number]) Performed By: #### B GLU ####[facility] [address] [place] [address] Glucose [Mass/Vol] 85 mg/dL Normal 70-100 [facility] Comment on above: Result Comment: Test performed by glucose meter. Results may be 10%-15% lower than serum/plasma values. (CLIA ID [id number]) Performed By: #### B GLU #### [facility] [address] [place] [address] Glucose [Mass/Vol] 95 mg/dL Normal 70-100 [facility] Comment on above: Result Comment: Test performed by glucose meter. Results may be 10%-15% lower than serum/plasma values. (CLIA ID [id number]) Performed By: #### B GLU #### [facility] [address] [place] [address] Glucose [Mass/Vol] 111 mg/dL High 70-100 [facility] Comment on above: Result Comment: Test performed by glucose meter. Results may be 10%-15% lower than serum/plasma values. (CLIA ID [id number]) Performed By: #### B GLU #### [facility] [address] [place] [address] Glucose [Mass/Vol] 149 mg/dL High 70-100 [facility] Comment on above: Result Comment: Test performed by glucose meter. Results may be 10%-15% lower than serum/plasma values. (CLIA ID [id number]) Performed By: #### B GLU #### [facility] [address] [place] [address] Glucose [Mass/Vol] 153 mg/dL High 70-100 [facility] Comment on above: Result Comment: Test performed by glucose meter. Results may be 10%-15% lower than serum/plasma values. (CLIA ID [id number]) Performed By: #### B GLU #### [place] [address] [place] [address] Glucose [Mass/Vol] 165 mg/dL High 70-100 [facility] Comment on above: Result Comment: Test performed by glucose meter. Results may be 10%-15% lower than serum/plasma values. (CLIA ID [id number]) Performed By: #### B GLU #### [place] [address] [place] [address] Glucose [Mass/Vol] 150 mg/dL High 70-100 [facility] Comment on above: Result Comment: Test performed by glucose meter. Results may be 10%-15% lower than serum/plasma values. (CLIA ID [id number]) Performed By: #### B GLU #### [facility] [address] [place] [address] Glucose [Mass/Vol] 172 mg/dL High 70-100 [facility] Comment on above: Result Comment: Test performed by glucose meter. Results may be 10%-15% lower than serum/plasma values. (CLIA ID [id number]) Performed By: #### B GLU #### [facility] [address] [place] [address] Glucose [Mass/Vol] 112 mg/dL High 70-100 [facility] Comment on above: Result Comment: Test performed by glucose meter. Results may be 10%-15% lower than serum/plasma values. (CLIA ID [id number]) Performed By: #### B GLU ####[facility] [address] [place] [address] Glucose [Mass/Vol] 96 mg/dL Normal 70-100 [facility] Comment on above: Result Comment: Test performed by glucose meter. Results may be 10%-15% lower than serum/plasma values. (CLIA ID [id number]) Performed By: #### B GLU ####[facility] [address] [place] [address] Glucose [Mass/Vol] 95 mg/dL Normal 70-100 [facility] Comment on above: Result Comment: Test performed by glucose meter. Results may be 10%-15% lower than serum/plasma values. (CLIA ID [id number]) Performed By: #### B GLU ####[email or web address] [place] [address] Glucose [Mass/Vol] 136 mg/dL High 70-100 [facility] Comment on above: Result Comment: Test performed by glucose meter. Results may be 10%-15% lower than serum/plasma values. (CLIA ID [id number]) Performed By: #### B GLU ####[facility] [address] [place] [address] Glucose [Mass/Vol] 162 mg/dL High 70-100 [facility] Comment on above: Result Comment: Test performed by glucose meter. Results may be 10%-15% lower than serum/plasma values. (CLIA ID [id number]) Performed By: #### B GLU ####[facility] [address] [place] [address] Hematologyon 03-01-2019 ABO and Rh group Nom (Bld) [address] [facility] [place], [place] Hemogramon 03-01-2019 Erythrocyte distribution width (RBC) [Ratio] 13.5 % Normal 11.5-14.5 [facility] Comment on above: Performed By: #### H EMOG, BMP3, MG3 ####[address] Hematocrit (Bld) [Volume fraction] 34.2 % Low 35.0-47.0 [facility] Comment on above: Performed By: #### H EMOG, BMP3, MG3 ####[address] Hemoglobin (Bld) [Mass/Vol] 11.1 g/dL Low 11.7-16.0 [facility] Comment on above: Performed By: #### H EMONicole, BMP3, MG3 ####[address] MCH (RBC) [Entitic mass] 30.1 pg Normal 26.0-34.0 [facility] Comment on above: Performed By: #### H EMONicole, BMP3, MG3 ####[address] MCHC (RBC) [Mass/Vol] 32.4 % Normal 32.0-36.0 [facility] Comment on above: Performed By: #### H EMONicole, BMP3, MG3 ####[address] MCV (RBC) [Entitic vol] 92.9 fL Normal 79.0-98.0 [facility] Comment on above: Performed By: #### H EMOG, BMP3, MG3 ####[address] Platelet mean volume (Bld) [Entitic vol] 9.8 fL Normal 7.4-10.4 [facility] Comment on above: Performed By: #### H EMOG, BMP3, MG3 ####[address] Platelets (Bld) [#/Vol] 151 10*3/uL Normal 140-440 [facility] Comment on above: Performed By: #### H EMOG, BMP3, MG3 ####[facility] [place], [place] RBC (Bld) [#/Vol] 3.68 10*6/uL Low 3.80-5.20 [facility] Comment on above: Performed By: #### H EMOG, BMP3, MG3 ####[facility] [place], [place] WBC (Bld) [#/Vol] 17.8 10*3/uL High 3.6-10.7 [facility] Comment on above: Performed By: #### H EMOG, BMP3, MG3 ####[place] [address] [place], [place] Leukodepleted Red Cellson Leukodepleted Red Cells Leukodepleted Red Cells: [id number] released 03/01/19 07:45 JMV Unit Blood Type: A Unit Blood Rh: POS Blood Product Code: AS1 Unit Number: [id number] Unit Status: released Barcoded Unit Number: =[id number] Barcoded Product Code: = Barcoded ABO/Rh: =%6200 Unit Expiration: Leukodepleted Red Cells: [id number] released 03/01/19 07:45 JMV Unit Blood Type: A Unit Blood Rh: POS Blood Product Code: AS1 Unit Number: [id number] Unit Status: released Barcoded Unit Number: =[id number] Barcoded Product Code: = Barcoded ABO/Rh: =%6200 Unit Expiration: Normal [facility] Comment on above: Performed By: #### H EMOG, CMP3M #### [facility] [address] [place], [place] Magnesiumon 03-01-2019 Magnesium [Mass/Vol] 2.1 mg/dL Normal 1.6-2.3 [facility] Comment on above: Performed By: #### H EMOG, BMP3, MG3 ####[facility] [place], [place] Magnesium [Mass/Vol] 2.1 mg/dL 1.6 - 2 .3 mg/dL [place], [place] Metabolic Panelon 03-01-2019 Sodium [Moles/Vol] [id number] [place], [place] Sodium [Moles/Vol] [id number] mmol/L [place], [place] Sodium [Moles/Vol] released [place], [place] Otheron 03-01-2019 Test Performed by [facility], [facility] [address] [place], [place] [address] [place] [address] Test Performed by [facility], [address] [place], [place] [address] [place] [address] POCT Glucoseon 03-01-2019 Glucose [Mass/Vol] 334 mg/dL High 70 - 100 mg/dL [place], [place] Comment on above: Test performed by gl ucose meter. Results may be 10%-15% lower than serum/plasma values. (CLIA ID [id number]) Interpretation and review of laboratory results Abnormal [place], [place] Test Performed by [facility], [facility] [address] [place], [place] [address] [place] [address] Glucose [Mass/Vol] 357 mg/dL High 70 - 100 mg/dL [place], [place] Comment on above: Test performed by gl ucose meter. Results may be 10%-15% lower than serum/plasma values. (CLIA ID [id number]) Interpretation and review of laboratory results Abnormal [place] Test Performed by [facility], [facility] [address] [place], [place] [address] [place] [address] Glucose [Mass/Vol] 85 mg/dL 70 - 100 mg/dL [place], [place] Comment on above: Test performed by gl ucose meter. Results may be 10%-15% lower than serum/plasma values. (CLIA ID [id number]) Test Performed by [facility], [address], [place] [address] [place] [address] Glucose [Mass/Vol] 95 mg/dL 70 - 100 mg/dL [place], [place] Comment on above: Test performed by gl ucose meter. Results may be 10%-15% lower than serum/plasma values. (CLIA ID [id number]) Test Performed by [facility], [address] [place] [address] [facility] [place] Glucose [Mass/Vol] 111 mg/dL High 70 - 100 mg/dL [facility] [place] Comment on above: Test performed by gl ucose meter. Results may be 10%-15% lower than serum/plasma values. (CLIA ID [id number]) Interpretation and review of laboratory results Abnormal [facility] [place] Test Performed by [facility], [address] [place] [address] [facility] Glucose [Mass/Vol] 149 mg/dL High 70 - 100 mg/dL [facility] [place] Comment on above: Test performed by gl ucose meter. Results may be 10%-15% lower than serum/plasma values. (CLIA ID [id number]) Interpretation and review of laboratory results Abnormal [facility] [place] Test Performed by [facility], [address] [place] [address] [facility] [place] Glucose [Mass/Vol] 153 mg/dL High 70 - 100 mg/dL [facility] [place] Comment on above: Test performed by gl ucose meter. Results may be 10%-15% lower than serum/plasma values. (CLIA ID [id number]) Interpretation and review of laboratory results Abnormal [facility] [place] Test Performed by [facility], [address] [place] [address] [facility] [place] Glucose [Mass/Vol] 165 mg/dL High 70 - 100 mg/dL [facility] [place] Comment on above: Test performed by gl ucose meter. Results may be 10%-15% lower than serum/plasma values. (CLIA ID [id number]) Interpretation and review of laboratory results Abnormal [facility] [place] Test Performed by [facility], [address] [place] [address] [facility] [place] Glucose [Mass/Vol] 150 mg/dL High 70 - 100 mg/dL [facility] [place] Comment on above: Test performed by gl ucose meter. Results may be 10%-15% lower than serum/plasma values. (CLIA ID [id number]) Interpretation and review of laboratory results Abnormal [facility] [place] Test Performed by [facility] [place] [address] [facility], [place] Glucose [Mass/Vol] 172 mg/dL High 70 - 100 mg/dL [place] Comment on above: Test performed by gl ucose meter. Results may be 10%-15% lower than serum/plasma values. (CLIA ID [id number]) Interpretation and review of laboratory results Abnormal [facility] [place] Test Performed by [facility] [address] [place], [place] [address] [place] [address] Glucose [Mass/Vol] 112 mg/dL High 70 - 100 mg/dL [place] Comment on above: Test performed by gl ucose meter. Results may be 10%-15% lower than serum/plasma values. (CLIA ID [id number]) Interpretation and review of laboratory results Abnormal [facility] [place] Test Performed by [facility] [address] [place], [place] [address] [place] [address] Glucose [Mass/Vol] 96 mg/dL 70 - 100 mg/dL [place] Comment on above: Test performed by gl ucose meter. Results may be 10%-15% lower than serum/plasma values. (CLIA ID [id number]) Test Performed by [facility], [facility] [address] [place], [place] [address] [place] [address] Glucose [Mass/Vol] 95 mg/dL 70 - 100 mg/dL [place], [place] Comment on above: Test performed by gl ucose meter. Results may be 10%-15% lower than serum/plasma values. (CLIA ID [id number]) Test Performed by [facility], [address], [place] [address] [place] [address] PREPARE RBC (CROSSMATCH), 2 Unitson 03-01-2019 Blood product unit ID (Dose) [#] [id number] [place] Blood product unit ID (Dose) [#] [id number] [facility] Potassiumon 03-01-2019 Potassium [Moles/Vol] 5.4 mmol/L High 3.5-5.1 [facility] Comment on above: Performed By: #### B GLU #### [address] [address] Interpretation and review of laboratory results Abnormal [facility] Potassium [Moles/Vol] 5.4 mmol/L High 3.5 - 5.1 mmol/L [facility], [facility] Test Performed by [facility], [address] [place] [address] [facility], [place] XR CHEST PORTABLEon 03-01-20 Patient Name: CHRISTY FRANCIS ---Diagnostic Radiology--- Exam Date/Time 03/01/2019 07:10:13 EST Exam CR Chest Portable Ordering Physician GRANT TAYLOR Accession Number [id number] CPT4 Codes 78425 () Reason For Exam sob Report CLINICAL INFORMATION: Shortness of breath. Status post open heart surgery. CHEST X-RAY, PORTABLE, 0537 hours: An AP portable view is compared to the prior examination of previous day. There is no change in the mediastinal or left lower hemithorax chest tubes or right internal jugular [place]-Jose introducer sheath. There is stable slightly limited lung volumes. No pneumothorax or other acute process or interval change identified. Report Dictated on --- Final --- Dictated: 03/01/2019 7:23 am Dictating Physician: MD JIMENEZ HARLAN Signed Date and Time: 03/01/2019 7:25 am Signed by: MD JIMENEZ HARLAN Transcribed Date and Time: 03/01/2019 7:23 [facility] Kathie Torres Incoming Radiology Results From [facility] - 03/01/2019 7:26 AM EST Patient Name: CHRISTY FRANCIS ---Diagnostic Radiology--- Exam Date/Time 03/01/2019 07:10:13 EST Exam CR Chest Portable Ordering Physician GRANT TAYLOR Accession Number [id number] CPT4 Codes 24545 () Reason For Exam sob Report CLINICAL INFORMATION: Shortness of breath. Status post open heart surgery. CHEST X-RAY, PORTABLE, 0537 hours: An AP portable view is compared to the prior examination of previous day. There is no change in the mediastinal or left lower hemithorax chest tubes or right internal jugular [place]-Jose introducer sheath. There is stable slightly limited lung volumes. No pneumothorax or other acute process or interval change identified. Report Dictated on --- Final --- Dictated: 03/01/2019 7:23 am Dictating Physician: MD JIMENEZ HARLAN Signed Date and Time: 03/01/2019 7:25 am Signed by: MD JIMENEZ HARLAN Transcribed Date and Time: 03/01/2019 7:23 [place], [place] Basic Metabolic Panelon 11 Calcium [Mass/Vol] 9.3 mg/dL Normal 8.4-10.4 [facility] Comment on above: Performed By: #### B GLU #### [address] [place] [address] [place], [place] Anion gap [Moles/Vol] 14 Normal [facility] Comment on above: Performed By: #### B GLU #### [address] CO2 [Moles/Vol] 18 mmol/L Low 22-30 [facility] Comment on above: Performed By: #### B GLU #### [place] [address] [place], [place] Creatinine [Mass/Vol] 1.35 mg/dL High 0.52-1.25 [facility] Comment on above: Performed By: #### B GLU #### [place] [address] [place], [place] GFR/1.73 sq M predicted among blacks MDRD (S/P/Bld) [Vol rate/Area] 47.1 mL/min/{1.73_m2} Normal >60 [facility] Comment on above: Performed By: #### B GLU #### [place] [address] [place], [place] GFR/1.73 sq M predicted among non-blacks MDRD (S/P/Bld) [Vol rate/Area] 38.9 mL/min/{1.73_m2} Normal >60 [facility] Comment on above: Result Comment: Sour ce- MDRD equation with creatinine calibration to IDMS(NKDEP) eGFR not recommended for drug dose adjustment Performed By: #### B GLU #### [facility] [address] [place], [place] Glucose [Mass/Vol] 127 mg/dL High 70-100 [facility] Comment on above: Performed By: #### B GLU #### [place] [address] [address] [place], [place] Urea nitrogen [Mass/Vol] 25 mg/dL High 7-20 [facility] Comment on above: Performed By: #### B GLU #### [place] [address] [place], [place] Chloride [Moles/Vol] 109 mmol/L High 98-107 [facility] Comment on above: Performed By: #### B GLU #### [place] [address] [place], [place] Potassium [Moles/Vol] 4.7 mmol/L Normal 3.5-5.1 [facility] Comment on above: Performed By: #### B GLU #### [place] [address] [place], [place] Sodium [Moles/Vol] 141 mmol/L Normal 135-145 [facility] Comment on above: Performed By: #### B GLU #### [place] [address] [place], [place] Anion gap [Moles/Vol] 14 mmol/L [facility] [place], [place] Calcium [Mass/Vol] 9.3 mg/dL 8.4 - 10. 4 mg/dL [facility], [place] Chloride [Moles/Vol] 109 mmol/L High 98 - 10 7 mmol/L [facility], [place] CO2 [Moles/Vol] 18 mmol/L Low 22 - 30 mmol/L [facility], [place] Creatinine [Mass/Vol] 1.35 mg/dL High 0.52 - 1.25 mg/dL [place], [place] EGFR IF NonAfrican Hungarian 38.9 mL/min >60 [place] Comment on above: Source- MDRD equatio n with creatinine calibration to IDMS(NKDEP) eGFR not recommended for drug dose adjustment GFR/1.73 sq M predicted among blacks MDRD (S/P/Bld) [Vol rate/Area] 47.1 mL/min/{1.73_m2} >60 [place] Glucose [Mass/Vol] 127 mg/dL High 70 - 100 mg/dL [place] Potassium [Moles/Vol] 4.7 mmol/L 3.5 - 5.1 mmol/L [place] Sodium [Moles/Vol] 141 mmol/L 135 - 145 mmol/L [place] Urea nitrogen [Mass/Vol] 25 mg/dL High 7 - 20 mg/dL [place] Test Performed by [facility], [address] [place] [address] [place], [place] Potassium [Moles/Vol] 7.0 mmol/L Critically high 3.5-5.1 [facility] Comment on above: Result Comment: repe ated Performed By: #### B GLU #### [place] [address] [place], [place] Calcium [Mass/Vol] 9.2 mg/dL Normal 8.4-10.4 [facility] Comment on above: Performed By: #### B GLU #### [place] [address] [place] Glucose [Mass/Vol] 115 mg/dL High 70-100 [facility] Comment on above: Performed By: #### B GLU #### [place] [address] [place] Anion gap [Moles/Vol] 9 Normal [facility] Comment on above: Performed By: #### B GLU #### [place] [address] [place] CO2 [Moles/Vol] 21 mmol/L Low 22-30 [facility] Comment on above: Performed By: #### B GLU #### [place] [address] [place] [address] Creatinine [Mass/Vol] 1.18 mg/dL Normal 0.52-1.25 [facility] Comment on above: Performed By: #### B GLU #### [facility] [address] [place] [address] GFR/1.73 sq M predicted among blacks MDRD (S/P/Bld) [Vol rate/Area] 55.0 mL/min/{1.73_m2} Normal >60 [facility] Comment on above: Performed By: #### B GLU #### [place] [address] [place] [address] GFR/1.73 sq M predicted among non-blacks MDRD (S/P/Bld) [Vol rate/Area] 45.4 mL/min/{1.73_m2} Normal >60 [facility] Comment on above: Result Comment: Sour ce- MDRD equation with creatinine calibration to IDMS(NKDEP) eGFR not recommended for drug dose adjustment Performed By: #### B GLU #### [place] [address] [place], [place] Urea nitrogen [Mass/Vol] 25 mg/dL High 7-20 [facility] Comment on above: Performed By: #### B GLU #### [place] [address] [place] Chloride [Moles/Vol] 110 mmol/L High 98-107 [facility] Comment on above: Performed By: #### B GLU #### [place] [address] [place], [place] Sodium [Moles/Vol] 139 mmol/L Normal 135-145 [facility] Comment on above: Performed By: #### B GLU #### [place] [address] [place], [place] Anion gap [Moles/Vol] 9 mmol/L [facility], [place] Calcium [Mass/Vol] 9.2 mg/dL 8.4 - 10. 4 mg/dL [facility], [place] Chloride [Moles/Vol] 110 mmol/L High 98 - 10 7 mmol/L [place] CO2 [Moles/Vol] 21 mmol/L Low 22 - 30 mmol/L [place] Creatinine [Mass/Vol] 1.18 mg/dL 0.52 - 1.25 mg/dL [place] EGFR IF NonAfrican [place] 45.4 mL/min >60 [place] Comment on above: Source- MDRD equatio n with creatinine calibration to IDMS(NKDEP) eGFR not recommended for drug dose adjustment GFR/1.73 sq M predicted among blacks MDRD (S/P/Bld) [Vol rate/Area] 55.0 mL/min/{1.73_m2} >60 [place] Glucose [Mass/Vol] 115 mg/dL High 70 - 100 mg/dL [place] Interpretation and review of laboratory results Abnormal [place] Potassium [Moles/Vol] 7.0 mmol/L Critically high 3.5 - 5.1 mmol/L [place] Comment on above: repeated Sodium [Moles/Vol] 139 mmol/L 135 - 145 mmol/L [place] Urea nitrogen [Mass/Vol] 25 mg/dL High 7 - 20 mg/dL [place] Test Performed by [facility], [address] [place] [address] [place], [place] CBCon 02-28-2019 Erythrocyte distribution width (RBC) [Ratio] 13.1 % 11.5 - 14.5 % [place] Hematocrit (Bld) [Volume fraction] 34.8 % Low 35 - 47 % [place] Hemoglobin (Bld) [Mass/Vol] 11.4 g/dL Low 11.7 - 16 g/dL [place] Interpretation and review of laboratory results Abnormal [place] MCH (RBC) [Entitic mass] 30.3 pg 26 - 34 pg [place] MCHC (RBC) [Mass/Vol] 32.8 % 32 - 36 % [place], [place] MCV (RBC) [Entitic vol] 92.3 fL 79 - 98 fL [place], [place] Platelet mean volume (Bld) [Entitic vol] 10.1 fL 7.4 - 10.4 fL [place] Platelets (Bld) [#/Vol] 160 10*3/uL 140 - 440 10*3/uL [place] RBC (Bld) [#/Vol] 3.78 10*6/uL Low 3.8 - 5.2 10*6/uL [place] WBC (Bld) [#/Vol] 18.8 10*3/uL High 3.6 - 10.7 10*3/uL [place] Test Performed by [id number] [place] [address] CR Chest Portableon 02-29-20 19 CR Chest Portable Patient Name: CHRISTY FRANCIS Diagnostic Radiology Exam Date/Time 02/28/2019 07:24:40 EST Exam CR Chest Portable Ordering Physician GRANT TAYLOR Accession Number [id number] CPT4 Codes 17417 () Reason For Exam POST OPEN HEART Report CHEST - PORTABLE: CLINICAL INDICATION: Respiratory distress for follow up TECHNIQUE: Portable AP COMPARISON: One day ago FINDINGS: Life support devices: Right jugular venous sheath is noted. The [place] catheter has been removed. 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 : 1950 Requested By: Order Number: [id number] Reading MD: Bryce Hayden Measurements Intervals [place] Rate: 95 P: 61 SC: 146 QRS: 11 QRSD: 85 T: 93 QT: 321 QTc: 404 Interpretive Statements Sinus rhythm Left atrial enlargement Nonspecific T abnormalities, lateral leads Electronically Signed On 02-28-2019 12:56:39 EST by Bryce [employer] [facility], [facility] Incoming Cardiology Results From [employer] - 02/28/2019 12:57 PM EST [facility] Test Date: 2019-02-28 Pat Name: Christy Francis Department: 1AHLU Room: 1H04 Gender: F 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 Results may be 10%-15% lower than serum/plasma values. (CLIA ID [id number]) Performed By: #### B GLU ####[facility] [address] [place] [address] Glucose [Mass/Vol] 196 mg/dL [facility] [address] Comment on above: Result Comment: Test performed by glucose meter. Results may be 10%-15% lower than serum/plasma values. (CLIA ID [id number]) Performed By: #### B GLU #### [facility] [address] [place] [address] Glucose [Mass/Vol] 135 mg/dL High [address] [facility] Comment on above: Result Comment: Test performed by glucose meter. Results may be 10%-15% lower than serum/plasma values. (CLIA ID [id number]) Performed By: #### B GLU #### [facility] [address] [place] [address] Glucose [Mass/Vol] 121 mg/dL High 70-100 [facility] Comment on above: Result Comment: Test performed by glucose meter. Results may be 10%-15% lower than serum/plasma values. (CLIA ID [id number]) Performed By: #### B GLU #### [facility] [address] [place] [facility] [address] Glucose [Mass/Vol] 76 mg/dL Normal 70-100 [facility] Comment on above: Result Comment: Test performed by glucose meter. Results may be 10%-15% lower than serum/plasma values. (CLIA ID [id number]) Performed By: #### B GLU #### [place] [address] [place] [facility] [address] Glucose [Mass/Vol] 76 mg/dL Normal 70-100 [facility] Comment on above: Result Comment: Test performed by glucose meter. Results may be 10%-15% lower than serum/plasma values. (CLIA ID [id number]) Performed By: #### B GLU #### [place] [address] [place] [address] Glucose [Mass/Vol] 90 mg/dL Normal 70-100 [facility] Comment on above: Result Comment: Test performed by glucose meter. Results may be 10%-15% lower than serum/plasma values. (CLIA ID [id number]) Performed By: #### B GLU #### [facility] [address] [place] [address] Glucose [Mass/Vol] 97 mg/dL Normal 70-100 [facility] Comment on above: Result Comment: Test performed by glucose meter. Results may be 10%-15% lower than serum/plasma values. (CLIA ID [id number]) Performed By: #### B GLU #### [facility] [address] [place] [place] [address] Glucose [Mass/Vol] 123 mg/dL High 70-100 [facility] Comment on above: Result Comment: Test performed by glucose meter. Results may be 10%-15% lower than serum/plasma values. (CLIA ID [id number]) Performed By: #### B GLU #### [facility] [address] [place] [address] Glucose [Mass/Vol] 133 mg/dL High 70-100 [facility] Comment on above: Result Comment: Test performed by glucose meter. Results may be 10%-15% lower than serum/plasma values. (CLIA ID [id number]) Performed By: #### B GLU #### [facility] [address] [place] [address] Glucose [Mass/Vol] 115 mg/dL High 70-100 [facility] Comment on above: Result Comment: Test performed by glucose meter. Results may be 10%-15% lower than serum/plasma values. (CLIA ID [id number]) Performed By: #### B GLU #### [facility] [address] [place] [address] Glucose [Mass/Vol] 138 mg/dL High 70-100 [place] Comment on above: Test performed by gl ucose meter. Results may be 10%-15% lower than serum/plasma values. (CLIA ID [id number]) Result Comment: Test performed by glucose meter. Results may be 10%-15% lower than serum/plasma values. (CLIA ID [id number]) Performed By: #### B GLU #### [facility] [address] [place] [address] Glucose [Mass/Vol] 135 mg/dL High 70-100 [facility] Comment on above: Result Comment: Test performed by glucose meter. Results may be 10%-15% lower than serum/plasma values. (CLIA ID [id number]) Performed By: #### B GLU #### [facility] [address] [place] [address] Glucose [Mass/Vol] 134 mg/dL High 70-100 [facility] Comment on above: Result Comment: Test performed by glucose meter. Results may be 10%-15% lower than serum/plasma values. (CLIA ID [id number]) Performed By: #### B GLU #### [facility] [address] [place] [address] Glucose [Mass/Vol] 143 mg/dL High 70-100 [facility] Comment on above: Result Comment: Test performed by glucose meter. Results may be 10%-15% lower than serum/plasma values. (CLIA ID [id number]) Performed By: #### B GLU #### [facility] [address] [place] [address] Glucose [Mass/Vol] 110 mg/dL High 70-100 [facility] Comment on above: Result Comment: Test performed by glucose meter. Results may be 10%-15% lower than serum/plasma values. (CLIA ID [id number]) Performed By: #### B GLU #### [facility] [address] [place] [address] Glucose [Mass/Vol] 155 mg/dL High 70-100 [place] Comment on above: Test performed by gl ucose meter. Results may be 10%-15% lower than serum/plasma values. (CLIA ID [id number]) Result Comment: Test performed by glucose meter. Results may be 10%-15% lower than serum/plasma values. (CLIA ID [id number]) Performed By: #### B GLU #### [facility] [address] [place] [address] Glucose [Mass/Vol] 104 mg/dL High 70-100 [facility] Comment on above: Result Comment: Test performed by glucose meter. Results may be 10%-15% lower than serum/plasma values. (CLIA ID [id number]) Performed By: #### B GLU #### [facility] [address] [place] [address] Glucose [Mass/Vol] 82 mg/dL Normal 70-100 [facility] Comment on above: Result Comment: Test performed by glucose meter. Results may be 10%-15% lower than serum/plasma values. (CLIA ID [id number]) Performed By: #### B GLU #### [facility] [address] [place] [address] Glucose [Mass/Vol] 92 mg/dL Normal 70-100 [facility], [place] Comment on above: Test performed by gl ucose meter. Results may be 10%-15% lower than serum/plasma values. (CLIA ID [id number]) Result Comment: Test performed by glucose meter. Results may be 10%-15% lower than serum/plasma values. (CLIA ID [id number]) Performed By: #### B GLU #### [facility] [address] [place] [address] Glucose [Mass/Vol] 110 mg/dL High 70-100 [facility] Comment on above: Result Comment: Test performed by glucose meter. Results may be 10%-15% lower than serum/plasma values. (CLIA ID [id number]) Performed By: #### B GLU #### [facility] [address] [place] [address] Glucose [Mass/Vol] 122 mg/dL High 70-100 [facility] Comment on above: Result Comment: Test performed by glucose meter. Results may be 10%-15% lower than serum/plasma values. (CLIA ID [id number]) Performed By: #### B GLU #### [facility] [address] [place] [address] Glucose [Mass/Vol] 152 mg/dL High 70-100 [facility] Comment on above: Result Comment: Test performed by glucose meter. Results may be 10%-15% lower than serum/plasma values. (CLIA ID [id number]) Performed By: #### B GLU #### [facility] [address] [place] [address] Glucose [Mass/Vol] 156 mg/dL High 70-100 [facility] Comment on above: Result Comment: Test performed by glucose meter. Results may be 10%-15% lower than serum/plasma values. (CLIA ID [id number]) Performed By: #### B GLU #### [facility] [address] [place] [address] Hemogramon 02-28-2019 Erythrocyte distribution width (RBC) [Ratio] 13.1 % Normal 11.5-14.5 [facility] Comment on above: Performed By: #### B GLU #### [place] [address] [place] [address] Hematocrit (Bld) [Volume fraction] 34.8 % Low 35.0-47.0 [facility] Comment on above: Performed By: #### B GLU #### [place] [address] [place] [address] Hemoglobin (Bld) [Mass/Vol] 11.4 g/dL Low 11.7-16.0 [facility] Comment on above: Performed By: #### B GLU #### [place] [address] [place], [place] MCH (RBC) [Entitic mass] 30.3 pg Normal 26.0-34.0 [facility] Comment on above: Performed By: #### B GLU #### [place] [address] [place] MCHC (RBC) [Mass/Vol] 32.8 % Normal 32.0-36.0 [facility] Comment on above: Performed By: #### B GLU #### [place] [address] [place], [place] MCV (RBC) [Entitic vol] 92.3 fL Normal 79.0-98.0 [facility] Comment on above: Performed By: #### B GLU #### [place] [address] [place], [place] Platelet mean volume (Bld) [Entitic vol] 10.1 fL Normal 7.4-10.4 [facility] Comment on above: Performed By: #### B GLU #### [address] [place], [place] Platelets (Bld) [#/Vol] 160 10*3/uL Normal 140-440 [facility] Comment on above: Performed By: #### B GLU #### [place] [address] [place], [place] RBC (Bld) [#/Vol] 3.78 10*6/uL Low 3.80-5.20 [facility] Comment on above: Performed By: #### B GLU #### [facility] [address] [place], [place] WBC (Bld) [#/Vol] 18.8 10*3/uL High 3.6-10.7 [facility] Comment on above: Performed By: #### B GLU #### [facility] [address] [place] [address] Otheron 02-28-2019 Interpretation and review of laboratory results Abnormal [employer], [place] POCT Glucoseon 02-28-2019 Glucose [Mass/Vol] 136 mg/dL High 70 - 100 mg/dL [facility] [place] Comment on above: Test performed by gl ucose meter. Results may be 10%-15% lower than serum/plasma values. (CLIA ID [id number]) Interpretation and review of laboratory results Abnormal [facility] Test Performed by [employer] [facility], [facility] [place] [address] [employer] Glucose [Mass/Vol] 162 mg/dL High 70 - 100 mg/dL [facility] [place], [place] Comment on above: Test performed by gl ucose meter. Results may be 10%-15% lower than serum/plasma values. (CLIA ID [id number]) Interpretation and review of laboratory results Abnormal [employer] Test Performed by [facility], [facility] [place] [address] [employer] Glucose [Mass/Vol] 214 mg/dL High 70 - 100 mg/dL [facility] [place] Comment on above: Test performed by gl ucose meter. Results may be 10%-15% lower than serum/plasma values. (CLIA ID [id number]) Interpretation and review of laboratory results Abnormal [facility] Test Performed by [facility], [address] [place] [address] [employer] Glucose [Mass/Vol] 196 mg/dL High 70 - 100 mg/dL [facility] [place] Comment on above: Test performed by gl ucose meter. Results may be 10%-15% lower than serum/plasma values. (CLIA ID [id number]) Interpretation and review of laboratory results Abnormal [facility] [place] Test Performed by [facility], [address] [place] [address] [facility] [place] Glucose [Mass/Vol] 135 mg/dL High 70 - 100 mg/dL [facility] [place] Comment on above: Test performed by gl ucose meter. Results may be 10%-15% lower than serum/plasma values. (CLIA ID [id number]) Interpretation and review of laboratory results Abnormal [facility] [place] Test Performed by [facility], [address] [place] [address] [facility] [place] Glucose [Mass/Vol] 121 mg/dL High 70 - 100 mg/dL [facility] [place] Comment on above: Test performed by gl ucose meter. Results may be 10%-15% lower than serum/plasma values. (CLIA ID [id number]) Interpretation and review of laboratory results Abnormal [facility] [place] Test Performed by [facility], [address] [place] [address] [facility] [place] Glucose [Mass/Vol] 76 mg/dL 70 - 100 mg/dL [facility] [place] Comment on above: Test performed by gl ucose meter. Results may be 10%-15% lower than serum/plasma values. (CLIA ID [id number]) Test Performed by [facility], [address] [place] [address] [facility] [place] Glucose [Mass/Vol] 76 mg/dL 70 - 100 mg/dL [facility] [place] Comment on above: Test performed by gl ucose meter. Results may be 10%-15% lower than serum/plasma values. (CLIA ID [id number]) Test Performed by [facility], [address] [place] [address] [facility] [place] Glucose [Mass/Vol] 90 mg/dL 70 - 100 mg/dL [facility] [place] Comment on above: Test performed by gl ucose meter. Results may be 10%-15% lower than serum/plasma values. (CLIA ID [id number]) Test Performed by [facility], [address] [place] [address] [facility] [place] Glucose [Mass/Vol] 97 mg/dL 70 - 100 mg/dL [facility] [place] Comment on above: Test performed by gl ucose meter. Results may be 10%-15% lower than serum/plasma values. (CLIA ID [id number]) Test Performed by [facility], [address] [place] [address] [facility] [place] Glucose [Mass/Vol] 123 mg/dL High 70 - 100 mg/dL [facility] [place] Comment on above: Test performed by gl ucose meter. Results may be 10%-15% lower than serum/plasma values. (CLIA ID [id number]) Interpretation and review of laboratory results Abnormal [facility] [place] Test Performed by [employer] [facility], [address] [place] [address] [facility] [place] Glucose [Mass/Vol] 133 mg/dL High 70 - 100 mg/dL [facility] [place] Comment on above: Test performed by gl ucose meter. Results may be 10%-15% lower than serum/plasma values. (CLIA ID [id number]) Interpretation and review of laboratory results Abnormal [facility] [place] Test Performed by [employer] [facility], [address] [place] [address] [facility] [place] Glucose [Mass/Vol] 115 mg/dL High 70 - 100 mg/dL [facility] [place] Comment on above: Test performed by gl ucose meter. Results may be 10%-15% lower than serum/plasma values. (CLIA ID [id number]) Interpretation and review of laboratory results Abnormal [facility] [place] Test Performed by [employer] [facility], [address] [place] [address] [facility] [place] Glucose [Mass/Vol] 135 mg/dL High 70 - 100 mg/dL [facility] [place] Comment on above: Test performed by gl ucose meter. Results may be 10%-15% lower than serum/plasma values. (CLIA ID [id number]) Interpretation and review of laboratory results Abnormal [facility] Test Performed by [employer] [facility], [address] [place] [address] [facility] [place] Glucose [Mass/Vol] 134 mg/dL High 70 - 100 mg/dL [facility] [place] Comment on above: Test performed by gl ucose meter. Results may be 10%-15% lower than serum/plasma values. (CLIA ID [id number]) Interpretation and review of laboratory results Abnormal [facility] Test Performed by [employer] [facility], [address] [place] [address] [facility] [place] Glucose [Mass/Vol] 143 mg/dL High 70 - 100 mg/dL [facility] [place] Comment on above: Test performed by gl ucose meter. Results may be 10%-15% lower than serum/plasma values. (CLIA ID [id number]) Interpretation and review of laboratory results Abnormal [facility] [place] Test Performed by [employer] [facility], [address] [place] [address] [facility] [place] Glucose [Mass/Vol] 110 mg/dL High 70 - 100 mg/dL [facility] [place] Comment on above: Test performed by gl ucose meter. Results may be 10%-15% lower than serum/plasma values. (CLIA ID [id number]) Interpretation and review of laboratory results Abnormal [facility] [place] Test Performed by [employer] [facility], [address] [place] [address] [facility] [place] Glucose [Mass/Vol] 104 mg/dL High 70 - 100 mg/dL [facility] [place] Comment on above: Test performed by gl ucose meter. Results may be 10%-15% lower than serum/plasma values. (CLIA ID [id number]) Interpretation and review of laboratory results Abnormal [facility] [place] Test Performed by [facility], [address] [place] [address] [facility] [place] Glucose [Mass/Vol] 82 mg/dL 70 - 100 mg/dL [facility] [place], [place] Comment on above: Test performed by gl ucose meter. Results may be 10%-15% lower than serum/plasma values. (CLIA ID [id number]) Test Performed by [facility], [address] [place] [address] [facility] [place], [place] Test Performed by [facility], [facility] [place] [address] [facility] Glucose [Mass/Vol] 110 mg/dL High 70 - 100 mg/dL [facility] [place], [place] Comment on above: Test performed by gl ucose meter. Results may be 10%-15% lower than serum/plasma values. (CLIA ID [id number]) Interpretation and review of laboratory results Abnormal [facility], [place] Test Performed by [facility], [facility] [place] [address] [facility], [place] Glucose [Mass/Vol] 122 mg/dL High 70 - 100 mg/dL [facility], [place] Comment on above: Test performed by gl ucose meter. Results may be 10%-15% lower than serum/plasma values. (CLIA ID [id number]) Interpretation and review of laboratory results Abnormal [facility] [place], [place] Test Performed by [facility], [facility] [place] [address] [facility], [place] Potassiumon 02-28-2019 Potassium [Moles/Vol] 6.7 mmol/L Critically high 3.5-5.1 [facility] Comment on above: Result Comment: Repe ated Performed By: #### B GLU #### [place] [address] [place] [address] Interpretation and review of laboratory results Abnormal [facility], [place] Potassium [Moles/Vol] 6.7 mmol/L Critically high 3.5 - 5.1 mmol/L [place], [place] Comment on above: Repeated Test Performed by [facility], [address] [place] [address] [facility], [place] XR CHEST PORTABLEon 02-29-20 Patient Name: CHRISTY FRANCIS [facility]: [id number] ---Diagnostic Radiology--- Exam Date/Time 02/28/2019 07:24:40 EST Exam CR Chest Portable Ordering Physician GRANT TAYLOR Accession Number [id number] CPT4 Codes 63408 () Reason For Exam POST OPEN HEART Report CHEST - PORTABLE: CLINICAL INDICATION: Respiratory distress for follow up TECHNIQUE: Portable AP COMPARISON: One day ago FINDINGS: Life support devices: Right jugular venous sheath is noted. The [place]-Jose catheter has been removed. Endotracheal tube and [...] No other consolidation. Report Dictated on Workstation: [email or web address] --- Final --- Dictated: 02/28/2019 6:53 am Dictating Physician: MD SOLORZANO JEFFREY Signed Date and Time: 02/28/2019 6:54 am Signed by: MD SOLORZANO JEFFREY Transcribed Date and Time: 02/28/2019 6:53 [facility], [place] Brian, [facility] Incoming Radiology Results From [facility] - 02/28/2019 7:25 AM EST Patient Name: CHRISTY FRANCIS ---Diagnostic Radiology--- Exam Date/Time 02/28/2019 07:24:40 EST Exam CR Chest Portable Ordering Physician GRANT TAYLOR Accession Number [id number] CPT4 Codes 34238 () Reason For Exam POST OPEN HEART Report CHEST - PORTABLE: CLINICAL INDICATION: Respiratory distress for follow up TECHNIQUE: Portable AP COMPARISON: One day ago FINDINGS: Life support devices: Right jugular venous sheath is noted. The [place]-Jose catheter has been removed. Endotracheal tube and [...] No other consolidation. Report Dictated on Workstation: [id number] --- Final --- Dictated: 02/28/2019 6:53 am Dictating Physician: MD SOLORZANO JEFFREY Signed Date and Time: 02/28/2019 6:54 am Signed by: MD SOLORZANO JEFFREY Transcribed Date and Time: 02/28/2019 6:[address] [facility] [place], [place] Arterial Blood Gaseson 02-27 CO2 [Moles/Vol] 22.3 mmol/L Low 23.0-27.0 [facility] Comment on above: Performed By: #### H EMONicole CMP3M #### [facility] [address], [place] HCO3 (Bld) [Moles/Vol] 20.8 mmol/L Low 21.0-25.0 [facility] Comment on above: Performed By: #### H EMONicole CMP3M #### [facility] [address], [place] Hemoglobin (Bld) [Mass/Vol] 10.4 g/dL Normal ScreenOnly [facility] Comment on above: Performed By: #### H EMONicole CMP3M #### [facility] [address], [place] Oxygen (Bld) [Partial pressure] 270.6 mm[Hg] High 80.0-100.0 [facility] Comment on above: Performed By: #### H EMOG CMP3M #### [facility] [address], [place] Oxygen saturation in Blood 98.8 % Normal 95.0-100.0 [facility] Comment on above: Performed By: #### H EMOG CMP3M #### [facility] [address], [place] pCO2 46.0 mm[Hg] High 35.0-45.0 [facility] Comment on above: Performed By: #### H EMOG CMP3M #### [facility] [address], [place] pH (Bld) 7.274 Low 7.350-7.450 [facility] Comment on above: Performed By: #### H MEGHNA AVILA3M #### [facility] [address], [place] Std Base Excess -5.8 mmol/L Low -3.0-3.0 [facility] Comment on above: Performed By: #### H AUSTIN CMP3M #### [facility] [address], [place] FIO2 100% Normal [facility] Comment on above: Performed By: #### H AUSTIN CMP3M #### [facility] [address], [place] Basic Metabolic Panelon 11- Calcium [Mass/Vol] 9.7 mg/dL Normal 8.4-10.4 [facility] Comment on above: Performed By: #### B GLU #### [address] [place] [address] [address] [place], [place] Glucose [Mass/Vol] 164 mg/dL High 70-100 [facility] Comment on above: Performed By: #### B GLU #### [address] [place] [address] [place], [place] Anion gap [Moles/Vol] 13 Normal [facility] Comment on above: Performed By: #### B GLU #### [address] [place] [address] [place], [place] CO2 [Moles/Vol] 18 mmol/L Low 22-30 [facility] Comment on above: Performed By: #### B GLU #### [address] [place] [place], [place] Creatinine [Mass/Vol] 1.13 mg/dL Normal 0.52-1.25 [facility] Comment on above: Performed By: #### B GLU #### [address] [place] [place], [place] GFR/1.73 sq M predicted among blacks MDRD (S/P/Bld) [Vol rate/Area] 57.9 mL/min/{1.73_m2} Normal >60 [facility] Comment on above: Performed By: #### B GLU #### [address] [place], [place] GFR/1.73 sq M predicted among non-blacks MDRD (S/P/Bld) [Vol rate/Area] 47.7 mL/min/{1.73_m2} Normal >60 [facility] Comment on above: Result Comment: Sour ce- MDRD equation with creatinine calibration to IDMS(NKDEP) eGFR not recommended for drug dose adjustment Performed By: #### B GLU #### [address] [place] [address] [place], [place] Urea nitrogen [Mass/Vol] 24 mg/dL High 7-20 [facility] Comment on above: Performed By: #### B GLU #### [address] [place] [place], [place] Chloride [Moles/Vol] 110 mmol/L High 98-107 [facility] Comment on above: Performed By: #### B GLU #### [address] [place] [address] [place], [place] Potassium [Moles/Vol] 4.0 mmol/L Normal 3.5-5.1 [facility] Comment on above: Performed By: #### B GLU #### [address] [place] [address] [place], [place] Sodium [Moles/Vol] 141 mmol/L Normal 135-145 [facility] Comment on above: Performed By: #### B GLU #### [address] [place] [place], [place] Anion gap [Moles/Vol] 13 mmol/L [place], [place] Calcium [Mass/Vol] 9.7 mg/dL 8.4 - 10. 4 mg/dL [place], [place] Chloride [Moles/Vol] 110 mmol/L High 98 - 10 7 mmol/L [place], [place] CO2 [Moles/Vol] 18 mmol/L Low 22 - 30 mmol/L [place] Creatinine [Mass/Vol] 1.13 mg/dL 0.52 - 1.25 mg/dL [place], [place] EGFR IF NonAfrican Hungarian 47.7 mL/min >60 [place], [place] Comment on above: Source- MDRD equatio n with creatinine calibration to IDMS(NKDEP) eGFR not recommended for drug dose adjustment GFR/1.73 sq M predicted among blacks MDRD (S/P/Bld) [Vol rate/Area] 57.9 mL/min/{1.73_m2} >60 [place], [place] Glucose [Mass/Vol] 164 mg/dL High 70 - 100 mg/dL [facility], [place] Potassium [Moles/Vol] 4.0 mmol/L 3.5 - 5.1 mmol/L [facility], [place] Sodium [Moles/Vol] 141 mmol/L 135 - 145 mmol/L [place], [place] Urea nitrogen [Mass/Vol] 24 mg/dL High 7 - 20 mg/dL [place] Calcium [Mass/Vol] 10.7 mg/dL High 8.4-10.4 [facility] Comment on above: Performed By: #### B GLU #### [address] [place] [address] [place], [place] Glucose [Mass/Vol] 160 mg/dL High 70-100 [facility] Comment on above: Performed By: #### B GLU #### [place] [address] [place], [place] Urea nitrogen [Mass/Vol] 25 mg/dL High 7-20 [facility] Comment on above: Performed By: #### B GLU #### [address] [place] [place], [place] Anion gap [Moles/Vol] 12 Normal [facility] Comment on above: Performed By: #### B GLU #### [place] [address] [place], [place] CO2 [Moles/Vol] 19 mmol/L Low 22-30 [facility] Comment on above: Performed By: #### B GLU #### [address] [place] [place], [place] Creatinine [Mass/Vol] 1.17 mg/dL Normal 0.52-1.25 [facility] Comment on above: Performed By: #### B GLU #### [address] [place] [place], [place] GFR/1.73 sq M predicted among blacks MDRD (S/P/Bld) [Vol rate/Area] 55.6 mL/min/{1.73_m2} Normal >60 [facility] Comment on above: Performed By: #### B GLU #### [facility] [address], [place] GFR/1.73 sq M predicted among non-blacks MDRD (S/P/Bld) [Vol rate/Area] 45.9 mL/min/{1.73_m2} Normal >60 [facility] Comment on above: Result Comment: Sour ce- MDRD equation with creatinine calibration to IDMS(NKDEP) eGFR not recommended for drug dose adjustment Performed By: #### B GLU #### [address] [place] [place], [place] Chloride [Moles/Vol] 110 mmol/L High 98-107 [facility] Comment on above: Performed By: #### B GLU #### [address] [place] [place], [place] Potassium [Moles/Vol] 4.2 mmol/L Normal 3.5-5.1 [facility] Comment on above: Performed By: #### B GLU #### [address] [place] [place], [place] Sodium [Moles/Vol] 140 mmol/L Normal 135-145 [facility] Comment on above: Performed By: #### B GLU #### [address] [place] [place], [place] Anion gap [Moles/Vol] 12 mmol/L [facility], [place] Calcium [Mass/Vol] 10.7 mg/dL High 8.4 - 10. 4 mg/dL [facility], [place] Chloride [Moles/Vol] 110 mmol/L High 98 - 10 7 mmol/L [facility], [place] CO2 [Moles/Vol] 19 mmol/L Low 22 - 30 mmol/L [facility], [place] Creatinine [Mass/Vol] 1.17 mg/dL 0.52 - 1.25 mg/dL [place], [place] EGFR IF NonAfrican Hungarian 45.9 mL/min >60 [place] Comment on above: Source- MDRD equatio n with creatinine calibration to IDMS(NKDEP) eGFR not recommended for drug dose adjustment GFR/1.73 sq M predicted among blacks MDRD (S/P/Bld) [Vol rate/Area] 55.6 mL/min/{1.73_m2} >60 [place] Glucose [Mass/Vol] 160 mg/dL High 70 - 100 mg/dL [place] Potassium [Moles/Vol] 4.2 mmol/L 3.5 - 5.1 mmol/L [place] Sodium [Moles/Vol] 140 mmol/L 135 - 145 mmol/L [place] Urea nitrogen [Mass/Vol] 25 mg/dL High 7 - 20 mg/dL [place] Calcium [Mass/Vol] 9.6 mg/dL Normal 8.4-10.4 [facility] Comment on above: Performed By: #### Papito AVILA CMP3M #### [facility] [address], [place] Glucose [Mass/Vol] 233 mg/dL High 70-100 [facility] Comment on above: Performed By: #### Papito AVILA CMP3M #### [address] [place] [place], [place] Urea nitrogen [Mass/Vol] 32 mg/dL High 7-20 [facility] Comment on above: Performed By: #### Papito AVILA CMP3M #### [facility] [address] [place], [place] Anion gap [Moles/Vol] 12 Normal [facility] Comment on above: Performed By: #### Papito AVILA CMP3M #### [facility] [address] [place], [place] CO2 [Moles/Vol] 24 mmol/L Normal 22-30 [facility] Comment on above: Performed By: #### Papito AVILA CMP3M #### [facility] [address] [place], [place] Creatinine [Mass/Vol] 1.05 mg/dL Normal 0.52-1.25 [facility] Comment on above: Performed By: #### Papito AVILA CMP3M #### [address] [place] [place], [place] GFR/1.73 sq M predicted among blacks MDRD (S/P/Bld) [Vol rate/Area] mL/min/{1.73_m2} Normal >60 [facility] Comment on above: Performed By: #### Papito AVILA CMP3M #### [address] [place] [address] [place], [place] GFR/1.73 sq M predicted among non-blacks MDRD (S/P/Bld) [Vol rate/Area] 52.0 mL/min/{1.73_m2} Normal >60 [facility] Comment on above: Result Comment: Sour ce- MDRD equation with creatinine calibration to IDMS(NKDEP) eGFR not recommended for drug dose adjustment Performed By: #### Papito AVILA CMP3M #### [place] [address] [place], [place] Chloride [Moles/Vol] 103 mmol/L Normal 98-107 [facility] Comment on above: Performed By: #### Papito AVILA CMP3M #### [place] [address] [place], [place] Potassium [Moles/Vol] 4.7 mmol/L Normal 3.5-5.1 [facility] Comment on above: Performed By: #### Papito AVILA CMP3Adriana #### [place] [place], [place] Sodium [Moles/Vol] 138 mmol/L Normal 135-145 [facility] Comment on above: Performed By: #### Papito AVILA CMP3M #### [address] [place] [place], [place] Basic Metabolic Panel w/ Ref oneil to MGon 02-27-2019 Anion gap [Moles/Vol] 12 mmol/L [facility], [place] Calcium [Mass/Vol] 9.6 mg/dL 8.4 - 10. 4 mg/dL [place], [place] Chloride [Moles/Vol] 103 mmol/L 98 - 10 7 mmol/L [place] CO2 [Moles/Vol] 24 mmol/L 22 - 30 mmol/L [place] Creatinine [Mass/Vol] 1.05 mg/dL 0.52 - 1.25 mg/dL [place], [place] EGFR IF NonAfrican Hungarian 52.0 mL/min >60 [place] Comment on above: Source- MDRD equatio n with creatinine calibration to IDMS(NKDEP) eGFR not recommended for drug dose adjustment GFR/1.73 sq M predicted among blacks MDRD (S/P/Bld) [Vol rate/Area] mL/min/{1.73_m2} >60 mL/min [place], [place] Glucose [Mass/Vol] 233 mg/dL High 70 - 100 mg/dL [place] Interpretation and review of laboratory results Abnormal [place] Potassium [Moles/Vol] 4.7 mmol/L 3.5 - 5.1 mmol/L [place] Sodium [Moles/Vol] 138 mmol/L 135 - 145 mmol/L [place] Urea nitrogen [Mass/Vol] 32 mg/dL High 7 - 20 mg/dL [place] Test Performed by [address] [address] [place], [place] Blood Gas, Arterialon 2018 Base Excess, Arterial -5.8 mmol/L Low -3 - 3 mmol/L [place] HCO3, Arterial 20.8 mmol/L Low 21 - 25 mmol/L [place], [place] Hemoglobin (Bld) [Mass/Vol] 10.4 g/dL ScreenOnly [place], [place] Oxygen saturation in Blood 98.8 % 95 - 100 % [place] pCO2, Arterial 46.0 mm[Hg] High 35 - 45 mm[Hg] [place], [place] pH, Arterial 7.274 Low [place], [place] pO2, Arterial 270.6 mm[Hg] High 80 - 100 mm[Hg] [place] Sodium [Moles/Vol] 100% [place] TCO2, Arterial 22.3 mmol/L Low 23 - 27 mmol/L [place], [place] CBCon 02-27-2019 Erythrocyte distribution width (RBC) [Ratio] 13.0 % 11.5 - 14.5 % [place] Hematocrit (Bld) [Volume fraction] 34.0 % Low 35 - 47 % [place] Hemoglobin (Bld) [Mass/Vol] 11.2 g/dL Low 11.7 - 16 g/dL [place], [place] Interpretation and review of laboratory results Abnormal [place], [place] MCH (RBC) [Entitic mass] 30.3 pg 26 - 34 pg [place] MCHC (RBC) [Mass/Vol] 32.9 % 32 - 36 % [place], [place] MCV (RBC) [Entitic vol] 92.1 fL 79 - 98 fL [place], [place] Platelet mean volume (Bld) [Entitic vol] 9.9 fL 7.4 - 10.4 fL [place] Platelets (Bld) [#/Vol] 143 10*3/uL 140 - 440 10*3/uL [place] RBC (Bld) [#/Vol] 3.69 10*6/uL Low 3.8 - 5.2 10*6/uL [place] WBC (Bld) [#/Vol] 16.7 10*3/uL High 3.6 - 10.7 10*3/uL [place] Test Performed by [address] [address] [place] Erythrocyte distribution width (RBC) [Ratio] 12.9 % 11.5 - 14.5 % [place] Hematocrit (Bld) [Volume fraction] 29.0 % Low 35 - 47 % [place] Hemoglobin (Bld) [Mass/Vol] 9.8 g/dL Low 11.7 - 16 g/dL [place] Interpretation and review of laboratory results Abnormal [place] MCH (RBC) [Entitic mass] 31.1 pg 26 - 34 pg [place] MCHC (RBC) [Mass/Vol] 33.8 % 32 - 36 % [place], [place] MCV (RBC) [Entitic vol] 91.9 fL 79 - 98 fL [place], [place] Platelet mean volume (Bld) [Entitic vol] 9.7 fL 7.4 - 10.4 fL [place], [place] Platelets (Bld) [#/Vol] 144 10*3/uL 140 - 440 10*3/uL [place] RBC (Bld) [#/Vol] 3.15 10*6/uL Low 3.8 - 5.2 10*6/uL [place] WBC (Bld) [#/Vol] 16.4 10*3/uL High 3.6 - 10.7 10*3/uL [place] Test Performed by [facility], [address] [place] [id number] [place] [address] CR Chest Portableon 02-28-20 19 CR Chest Portable Patient Name: CHRISTY FRANCIS Diagnostic Radiology Exam Date/Time 02/27/2019 16:56:34 EST Exam CR Chest Portable Ordering Physician GRANT TAYLOR Accession Number [id number] CPT4 Codes 44836 () Reason For Exam ETT placement Report CHEST PORTABLE: Indication: Inpatient; endotracheal tube placement Views: Portable frontal Comparison: 02/23/2019 Time: 16:42 on 02/27/2019 FINDINGS: Interval intubation with the endotracheal tube at the az, recommend repositioning and retraction. New right upper lung atelectasis/collapse. An enteric tube is in place with distal tip below the hemidiaphragm but excluded from [id number]. Interval placement of a right internal jugular Os[place]-Jose catheter with tip overlying the right main [...] Transcribed Date and Time: 02/27/2019 5:56 Normal [facility] CULTURE STAPH AUREUSon 02-27 CULTURE STAPH AUREUS CULTURE STAPH AUREU S --> Status: F No Staphylococcus aureus isolated. Normal [facility] Comment on above: Order Comment: Speci men Source Comment:Nasal Performed By: #### H MEGHNA AVILA3M #### [address] [address] CULTURE, STAPH AUREUSon 02-17 CULTURE, STAPHYLOCOCCUS SCREEN No Staphylococcus aureus isolated. [place], [place] Test Performed by [facility], [address] [place] [id number] Specimen Source Comment:[facility]al [facility] [place] Calcium, Ionizedon 9 Ionized Ca 5.50 mg/dL High 4.3 - 5.2 mg/dL [place], [place] pH (Bld) 7.27 [pH] Low [place] Calcium,Ionizedon 02-27-2019 Ionized Ca,Measured 5.50 mg/dL High 4.30-5.20 [facility] Comment on above: Performed By: #### H MEGHNA AVILA3M #### [address] [address] pH, Ionized Calcium 7.27 Low 7.31-7.46 [facility] Comment on above: Performed By: #### H MEGHNA AVILA3M #### [address] [address] Echo 2D/3D DONNELL w/wo Contrast on 02-27-2019 Echo 2D/3D DONNELL w/wo Contrast Patient Name: CHRISTY FRANCIS Ultrasound Exam Date/Time 02/27/2019 13:12:30 EST Exam Echo 2D/3D DONNELL w/wo Contrast Ordering Physician CITLALY CARMONA ELLEN E Accession Number [id number] Reason For Exam Surgery Report TRANSESOPHAGEAL ECHOCARDIOGRAM Intraoperative-Pre Pump Only PATIENT: Christy Francis STUDY DATE: 02/27/2019 : 1950 AGE: 69 HT/WT: 154.9 cm (61 80 kg in) (176 lb) GENDER: F BP: 98 / 57 LOCATION: [facility] PATIENT Inpatient [facility] STATUS: *ORDERING PHYSICIAN: * Ronda Carmona *READING PHYSICIAN: * Michi Dewitt, *SOLAR INSTALLER: Janice Austin MD [facility] INDICATIONS: CABG. CONCLUSIONS SUMMARY: 1. [...] 03/02/2019 8:47 am Signed by: MICHI DEWITT [facility] Glucose,Bedsideon 02-27-2019 Glucose [Mass/Vol] 180 mg/dL High 70-100 [facility] Comment on above: Result Comment: Test performed by glucose meter. Results may be 10%-15% lower than serum/plasma values. (CLIA ID [id number]) Performed By: #### B GLU #### [facility] [address] [place] [address] Glucose [Mass/Vol] 181 mg/dL High 70-100 [facility] Comment on above: Result Comment: Test performed by glucose meter. Results may be 10%-15% lower than serum/plasma values. (CLIA ID [id number]) Performed By: #### B GLU #### [facility] [address] [place] [address] Glucose [Mass/Vol] 179 mg/dL High 70-100 [facility] Comment on above: Result Comment: Test performed by glucose meter. Results may be 10%-15% lower than serum/plasma values. (CLIA ID [id number]) Performed By: #### B GLU #### [facility] [address] [place] [address] Glucose [Mass/Vol] 148 mg/dL High 70-100 [facility] Comment on above: Result Comment: Test performed by glucose meter. Results may be 10%-15% lower than serum/plasma values. (CLIA ID [id number]) Performed By: #### B GLU #### [facility] [address] [place] [place] [address] Glucose [Mass/Vol] 139 mg/dL High 70-[address] [place] [address] Comment on above: Result Comment: Test performed by glucose meter. Results may be 10%-15% lower than serum/plasma values. (CLIA ID [id number]) Performed By: #### B GLU #### [facility] [address] [place] [address] Glucose [Mass/Vol] 233 mg/dL High 70-100 [facility] Comment on above: Result Comment: Test performed by glucose meter. Results may be 10%-15% lower than serum/plasma values. (CLIA ID [id number]) Performed By: #### H MEGHNA AVILA3M #### [facility] [address] [place], [place] Glucose [Mass/Vol] 299 mg/dL High 70-100 [facility] Comment on above: Result Comment: Test performed by glucose meter. Results may be 10%-15% lower than serum/plasma values. (CLIA ID [id number]) Performed By: #### H MEGHNA AVILA3M #### [address] [address] [place], [place] Hemogramon 02-27-2019 Erythrocyte distribution width (RBC) [Ratio] 13.0 % Normal 11.5-14.5 [facility] Comment on above: Performed By: #### B GLU #### [address] [place] [address] [place] Hematocrit (Bld) [Volume fraction] 34.0 % Low 35.0-47.0 [facility] Comment on above: Performed By: #### B GLU #### [address] [place] [address] [place], [place] Hemoglobin (Bld) [Mass/Vol] 11.2 g/dL Low 11.7-16.0 [facility] Comment on above: Performed By: #### B GLU #### [address] [place] [address] [place], [place] MCH (RBC) [Entitic mass] 30.3 pg Normal 26.0-34.0 [facility] Comment on above: Performed By: #### B GLU #### [address] [place] [address] [place], [place] MCHC (RBC) [Mass/Vol] 32.9 % Normal 32.0-36.0 [facility] Comment on above: Performed By: #### B GLU #### [address] MCV (RBC) [Entitic vol] 92.1 fL Normal 79.0-98.0 [facility] Comment on above: Performed By: #### B GLU #### [place] [address] [place], [place] Platelet mean volume (Bld) [Entitic vol] 9.9 fL Normal 7.4-10.4 [facility] Comment on above: Performed By: #### B GLU #### [address] [place] [address] [place], [place] Platelets (Bld) [#/Vol] 143 10*3/uL Normal 140-440 [facility] Comment on above: Performed By: #### B GLU #### [address] [place] [address] [place], [place] RBC (Bld) [#/Vol] 3.69 10*6/uL Low 3.80-5.20 [facility] Comment on above: Performed By: #### B GLU #### [address] [place] [address] [place], [place] WBC (Bld) [#/Vol] 16.7 10*3/uL High 3.6-10.7 [facility] Comment on above: Performed By: #### B GLU #### [address] [address] [place], [place] Erythrocyte distribution width (RBC) [Ratio] 12.9 % Normal 11.5-14.5 [facility] Comment on above: Performed By: #### H AUSTIN CMP3M #### [address] [place] [address] [place], [place] Hematocrit (Bld) [Volume fraction] 29.0 % Low 35.0-47.0 [facility] Comment on above: Performed By: #### H AUSTIN CMP3M #### [address] [place] [address] [place], [place] Hemoglobin (Bld) [Mass/Vol] 9.8 g/dL Low 11.7-16.0 [facility] Comment on above: Performed By: #### H AUSTIN CMP3M #### [address] [place] [place], [place] MCH (RBC) [Entitic mass] 31.1 pg Normal 26.0-34.0 [facility] Comment on above: Performed By: #### H AUSTIN CMP3M #### [address] [place] [address] [place], [place] MCHC (RBC) [Mass/Vol] 33.8 % Normal 32.0-36.0 [facility] Comment on above: Performed By: #### Papito AVILA CMP3M #### [facility] [address] [place], [place] MCV (RBC) [Entitic vol] 91.9 fL Normal 79.0-98.0 [facility] Comment on above: Performed By: #### Papito AVILA CMP3M #### [address] [address] [address] [place], [place] Platelet mean volume (Bld) [Entitic vol] 9.7 fL Normal 7.4-10.4 [facility] Comment on above: Performed By: #### Papito AVILA CMP3M #### [address] [place] [address] [place], [place] Platelets (Bld) [#/Vol] 144 10*3/uL Normal 140-440 [facility] Comment on above: Performed By: #### Papito AVILA CMP3M #### [address] [address] [place], [place] RBC (Bld) [#/Vol] 3.15 10*6/uL Low 3.80-5.20 [facility] Comment on above: Performed By: #### Papito AVILA CMP3M #### [address] [address] [place], [place] WBC (Bld) [#/Vol] 16.4 10*3/uL High 3.6-10.7 [facility] Comment on above: Performed By: #### Papito AVILA CMP3M #### [address] [address] [address] [place], [place] Magnesiumon 02-27-2019 Magnesium [Mass/Vol] 2.4 mg/dL High 1.6-2.3 [facility] Comment on above: Performed By: #### B GLU #### [address] [place] [address] [address] [place], [place] Magnesium [Mass/Vol] 2.4 mg/dL High 1.6 - 2 .3 mg/dL [facility] [place] Magnesium [Mass/Vol] 3.2 mg/dL High 1.6-2.3 [facility] Comment on above: Performed By: #### B GLU #### [facility] [address] [place] [address] Magnesium [Mass/Vol] 3.2 mg/dL High 1.6 - 2 .3 mg/dL [facility] [place], [place] Otheron 02-27-2019 Interpretation and review of laboratory results Abnormal [facility] [place] Test Performed by [facility], [address] [place] [address] [facility] [place], [place] Interpretation and review of laboratory results Abnormal [facility] [facility] [place] Test Performed by [facility], [facility] [place] [place] [address] [facility] [place] Interpretation and review of laboratory results Abnormal [facility] [place] Test Performed by [facility], [facility] [place] [address] [facility] [place] POCT Glucoseon 02-27-2019 Glucose [Mass/Vol] 152 mg/dL High 70 - 100 mg/dL [facility] Comment on above: Test performed by gl ucose meter. Results may be 10%-15% lower than serum/plasma values. (CLIA ID [id number]) Interpretation and review of laboratory results Abnormal [facility] Test Performed by [facility], [facility] [place] [address] [facility] [place] Glucose [Mass/Vol] 156 mg/dL High 70 - 100 mg/dL [facility] Comment on above: Test performed by gl ucose meter. Results may be 10%-15% lower than serum/plasma values. (CLIA ID [id number]) Interpretation and review of laboratory results Abnormal [facility] Test Performed by [facility], [address] [place] [address] [facility] [place] Glucose [Mass/Vol] 180 mg/dL High 70 - 100 mg/dL [facility] Comment on above: Test performed by gl ucose meter. Results may be 10%-15% lower than serum/plasma values. (CLIA ID [id number]) Interpretation and review of laboratory results Abnormal [facility] [place] Test Performed by [facility], [address] [place] [address] [facility] [place] Glucose [Mass/Vol] 181 mg/dL High 70 - 100 mg/dL [facility] [place] Comment on above: Test performed by gl ucose meter. Results may be 10%-15% lower than serum/plasma values. (CLIA ID [id number]) Interpretation and review of laboratory results Abnormal [facility] [place] Test Performed by [employer] [facility], [address] [place] [address] [facility] [place] Glucose [Mass/Vol] 179 mg/dL High 70 - 100 mg/dL [facility] [place] Comment on above: Test performed by gl ucose meter. Results may be 10%-15% lower than serum/plasma values. (CLIA ID [id number]) Interpretation and review of laboratory results Abnormal [facility] [place] Test Performed by [facility] [facility], [address] [place] [address] [facility] [place] Glucose [Mass/Vol] 148 mg/dL High 70 - 100 mg/dL [facility] [place] Comment on above: Test performed by gl ucose meter. Results may be 10%-15% lower than serum/plasma values. (CLIA ID [id number]) Interpretation and review of laboratory results Abnormal [facility] [place] Test Performed by [facility] [facility], [address] [place] [address] [facility] [place] Glucose [Mass/Vol] 139 mg/dL High 70 - 100 mg/dL [facility] [place] Comment on above: Test performed by gl ucose meter. Results may be 10%-15% lower than serum/plasma values. (CLIA ID [id number]) Interpretation and review of laboratory results Abnormal [facility] [place] Test Performed by [facility], [address] [place] [address] [facility] [place] Glucose [Mass/Vol] 233 mg/dL High 70 - 100 mg/dL [facility] [place] Comment on above: Test performed by gl ucose meter. Results may be 10%-15% lower than serum/plasma values. (CLIA ID [id number]) Interpretation and review of laboratory results Abnormal [place] Test Performed by [facility], [address] [place] [address] [place], [place] Glucose [Mass/Vol] 299 mg/dL High 70 - 100 mg/dL [place] Comment on above: Test performed by gl ucose meter. Results may be 10%-15% lower than serum/plasma values. (CLIA ID [id number]) Interpretation and review of laboratory results Abnormal [place] Test Performed by [facility], [address] [place] [id number] [place] [address] Phosphoruson 02-27-2019 Phosphate [Mass/Vol] 3.3 mg/dL Normal 2.5-4.5 [facility] Comment on above: Performed By: #### B GLU #### [address] Phosphate [Mass/Vol] 3.3 mg/dL 2.5 - 4 .5 mg/dL [place], [place] Protime AND APTTon 9 INR Coag (PPP) [Relative time] 1.3 High 0.9-1.1 [facility] Comment on above: Result Comment: Gael [...] Myocardial Infarction Performed By: #### H MEGHNA AVILA3M #### [facility] [address] [address] [place] [address] PT Coag (PPP) [Time] 13.5 s High 9.0-12.0 [facility] Comment on above: Result Comment: . Performed By: #### H MEGHNA AVILA3M #### [address] [address] aPTT Coag (Bld) [Time] 21.2 s Normal 20.0-30.5 [facility] Comment on above: Result Comment: NOTE : The therapeutic time for Heparin anticoagulation, based on Xa activity inhibition, is an APTT of 46-80 seconds. Performed By: #### H AUSTIN, CMP3M #### [address] [address] Protime/INR & PTTon 02-28-20 aPTT Coag (Bld) [Time] 21.2 s 20 - 30.5 s [place], [place] Comment on above: NOTE: The therapeuti c time for Heparin anticoagulation, based on Xa activity inhibition, is an APTT of 46-80 seconds. INR Coag (PPP) [Relative time] 1.3 {INR} [place] Comment on above: Recommended Anticoag ulant [...] Interpretation and review of laboratory results Abnormal [place], [place] PT Coag (PPP) [Time] 13.5 s High 9 - 12 s [place], [place] Comment on above: . Test Performed by [facility], [address] [place] [address] [place], [place] XR CHEST PORTABLEon 02-28-20 Patient Name: CHRISTY FRANCIS ---Diagnostic Radiology--- Exam Date/Time 02/27/2019 16:56:34 EST Exam CR Chest Portable Ordering Physician GRANT TAYLOR Accession Number [id number] CPT4 Codes 64388 () Reason For Exam ETT placement Report CHEST PORTABLE: Indication: Inpatient; endotracheal tube placement Views: Portable frontal Comparison: 02/23/2019 Time: 16:42 on 02/27/2019 FINDINGS: Interval intubation with the endotracheal tube at the az, recommend repositioning and retraction. New right upper lung atelectasis/collapse. An enteric tube is in place with distal tip below the hemidiaphragm but excluded from [id number]. Interval placement of a right internal jugular Osceola-Jose catheter with tip overlying the right main [...] R Transcribed Date and Time: 02/27/2019 5:56 [facility], [place] Brian, [facility] Incoming Radiology Results From [facility] - 02/27/2019 6:03 PM EST Patient Name: CHRISTY FRANCIS ---Diagnostic Radiology--- Exam Date/Time 02/27/2019 16:56:34 EST Exam CR Chest Portable Ordering Physician GRANT TAYLOR Accession Number [id number] CPT4 Codes 19936 () Reason For Exam ETT placement Report CHEST PORTABLE: Indication: Inpatient; endotracheal tube placement Views: Portable frontal Comparison: 02/23/2019 Time: 16:42 on 02/27/2019 FINDINGS: Interval intubation with the endotracheal tube at the az, recommend repositioning and retraction. New right upper lung atelectasis/collapse. An enteric tube is in place with distal tip below the hemidiaphragm but excluded from [id number]. Interval placement of a right internal jugular Osceola-Jose catheter with tip overlying the right main [...] R Transcribed Date and Time: 02/27/2019 5:56 [place], [place] Basic Metabolic Panelon - Calcium [Mass/Vol] 9.2 mg/dL Normal 8.4-10.4 [facility] Comment on above: Performed By: #### Papito AVILA CMP3M #### [facility] [address] [place], [place] Glucose [Mass/Vol] 317 mg/dL High 70-100 [facility] Comment on above: Performed By: #### Papito AVILA CMP3M #### [facility] [address], [place] Anion gap [Moles/Vol] 10 Normal [facility] Comment on above: Performed By: #### Papito AVILA CMP3M #### [facility] [address], [place] CO2 [Moles/Vol] 21 mmol/L Low 22-30 [facility] Comment on above: Performed By: #### Papito AVILA CMP3M #### [facility] [address], [place] Creatinine [Mass/Vol] 1.14 mg/dL Normal 0.52-1.25 [facility] Comment on above: Performed By: #### Papito AVILA CMP3M #### [facility] [address], [place] GFR/1.73 sq M predicted among blacks MDRD (S/P/Bld) [Vol rate/Area] 57.3 mL/min/{1.73_m2} Normal >60 [facility] Comment on above: Performed By: #### Papito AVILA CMP3M #### [address] [address] [address] [place], [place] GFR/1.73 sq M predicted among non-blacks MDRD (S/P/Bld) [Vol rate/Area] 47.2 mL/min/{1.73_m2} Normal >60 [facility] Comment on above: Result Comment: Sour ce- MDRD equation with creatinine calibration to IDMS(NKDEP) eGFR not recommended for drug dose adjustment Performed By: #### Papito AVILA CMP3M #### [address] [address] [address] [place], [place] Urea nitrogen [Mass/Vol] 30 mg/dL High 7-20 [facility] Comment on above: Performed By: #### Papito AVILA CMP3M #### [address] [address] [address] [place], [place] Chloride [Moles/Vol] 105 mmol/L Normal 98-107 [facility] Comment on above: Performed By: #### Papito AVILA CMP3M #### [address] [place] [address] [address] [place], [place] Potassium [Moles/Vol] 5.1 mmol/L Normal 3.5-5.1 [facility] Comment on above: Performed By: #### Papito AVILA CMP3M #### [address] [place] [address] [address] [place], [place] Sodium [Moles/Vol] 136 mmol/L Normal 135-145 [facility] Comment on above: Performed By: #### Papito AVILA CMP3Adriana #### [address] [address] [address] [place], [place] Basic Metabolic Panel w/ Ref oneil to MGon 02-26-2019 Anion gap [Moles/Vol] 10 mmol/L [facility], [place] Calcium [Mass/Vol] 9.2 mg/dL 8.4 - 10. 4 mg/dL [facility], [place] Chloride [Moles/Vol] 105 mmol/L 98 - 10 7 mmol/L [place], [place] CO2 [Moles/Vol] 21 mmol/L Low 22 - 30 mmol/L [place] Creatinine [Mass/Vol] 1.14 mg/dL 0.52 - 1.25 mg/dL [place], [place] EGFR IF NonAfrican Hungarian 47.2 mL/min >60 [place], [place] Comment on above: Source- MDRD equatio n with creatinine calibration to IDMS(NKDEP) eGFR not recommended for drug dose adjustment GFR/1.73 sq M predicted among blacks MDRD (S/P/Bld) [Vol rate/Area] 57.3 mL/min/{1.73_m2} >60 [place], [place] Glucose [Mass/Vol] 317 mg/dL High 70 - 100 mg/dL [place], [place] Interpretation and review of laboratory results Abnormal [place], [place] Potassium [Moles/Vol] 5.1 mmol/L 3.5 - 5.1 mmol/L [place], [place] Sodium [Moles/Vol] 136 mmol/L 135 - 145 mmol/L [place], [place] Urea nitrogen [Mass/Vol] 30 mg/dL High 7 - 20 mg/dL [place] Test Performed by [facility], [address] [place] [address] [place], [place] CBCon 02-26-2019 Erythrocyte distribution width (RBC) [Ratio] 13.1 % 11.5 - 14.5 % [place], [place] Hematocrit (Bld) [Volume fraction] 44.0 % 35 - 47 % [place], [place] Hemoglobin (Bld) [Mass/Vol] 14.9 g/dL 11.7 - 16 g/dL [place], [place] MCH (RBC) [Entitic mass] 30.6 pg 26 - 34 pg [place], [place] MCHC (RBC) [Mass/Vol] 33.9 % 32 - 36 % [place] MCV (RBC) [Entitic vol] 90.3 fL 79 - 98 fL [place], [place] Platelet mean volume (Bld) [Entitic vol] 9.9 fL 7.4 - 10.4 fL [place], [place] Platelets (Bld) [#/Vol] 205 10*3/uL 140 - 440 10*3/uL [place] RBC (Bld) [#/Vol] 4.88 10*6/uL 3.8 - 5.2 10*6/uL [place] WBC (Bld) [#/Vol] 8.3 10*3/uL 3.6 - 10.7 10*3/uL [place] Test Performed by [facility], [address] [place], [place] [id number] [place] [address] Complete Urinalysison 2018 Appearance (U) Clear Normal Clear [facility] Comment on above: Performed By: #### Papito AVILA CMP3M #### [address] Bacteria LM.HPF (Urine sed) [#/Area] Negative Normal Negative [facility] Comment on above: Performed By: #### Papito AVILA CMP3M #### [address] Bilirubin,Urine Negative Normal Negative [facility] Comment on above: Performed By: #### Papito AVILA CMP3M #### [address] Cast, Hyaline Negative Normal Negative [facility] Comment on above: Performed By: #### Papito AVILA CMP3M #### [address] Color (U) Light-Yellow Normal Lt. Yellow [facility] Comment on above: Performed By: #### Papito AVILA CMP3M #### [address] Glucose Ql (U) 300 mg/dL Normal Normal (<70) [facility] Comment on above: Performed By: #### H AUSTIN CMP3M #### [address] Ketone,Urine Negative Normal Negative [facility] Comment on above: Performed By: #### H AUSTIN CMP3M #### [facility] [address], [place] Leukocytes,Urine 25 Michael/uL Normal Negative [facility] Comment on above: Performed By: #### H AUSTIN CMP3M #### [facility] [address], [place] Mucous Threads Few Normal Negative [facility] Comment on above: Performed By: #### H AUSTIN CMP3M #### [address] [address] [address] [place], [place] Nitrites,Urine Negative Normal Negative [facility] Comment on above: Performed By: #### H AUSTIN CMP3M #### [address] [address] [address] [place], [place] Occult Blood,Urine 0.03 mg/dL Normal Negative [facility] Comment on above: Performed By: #### H AUSTIN CMP3M #### [address] [address] [address] [place], [place] pH (U) 5.0 Normal 5.0-8.0 [facility] Comment on above: Performed By: #### H AUSTIN CMP3M #### [address] [address] [address] [place], [place] Protein (U) [Mass/Vol] Negative Normal Negative [facility] Comment on above: Performed By: #### H AUSTIN CMP3M #### [address] [address] [address] [place], [place] RBC LM.HPF (Urine sed) [#/Area] 0 - 2 Normal 0-2 [facility] Comment on above: Performed By: #### H AUSTIN CMP3M #### [address] [address] [address] [place], [place] Specific [place],Urine 1.015 Normal 1.005-1.030 [facility] Comment on above: Performed By: #### H AUSTIN CMP3M #### [address] [address] [place], [place] Squamous Epithelial 0 - 2 Normal 3-5 [facility] Comment on above: Performed By: #### H EMOG CMP3M #### [facility] [address] [place] [address] Urobilinogen,Urine Normal Normal Normal (0-1) [facility] Comment on above: Performed By: #### H EMOG, CMP3M #### [facility] [address] [place] [address] WBC LM.HPF (Urine sed) [#/Area] 0 - 2 Normal 0-5 [facility] Comment on above: Performed By: #### H EMOG CMP3M #### [facility] [address] 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: MARIE : 1950 Requested By: Order Number: [id number] Reading MD: Keith Ngo Measurements Intervals [place] Rate: 78 P: 52 SC: 150 QRS: -10 QRSD: 86 T: 122 QT: 386 QTc: 440 Interpretive Statements Sinus rhythm LAE, consider biatrial enlargement LVH with secondary repolarization abnormality Electronically Signed On 02-26-2019 9:22:41 EST by Keith Ngo [facility] Test Date: 2019-02-25 Pat Name: Christy Thomasan Department: 1A5 Room: [facility] Gender: F Wrapper Leaf Inspector: MARIE : 1950 Requested By: Order Number: [id number] Reading MD: Keith Ngo Measurements Intervals [place] Rate: 78 P: 52 SC: 150 QRS: -10 QRSD: 86 T: 122 QT: 386 QTc: 440 Interpretive Statements Sinus rhythm LAE, consider biatrial enlargement LVH with secondary repolarization abnormality Electronically Signed On 02-26-2019 9:22:41 EST by Keith Ngo [facility], [place] Glucose,Bedsideon 02-26-2019 Glucose [Mass/Vol] 257 mg/dL High 70-100 [facility] Comment on above: Result Comment: Test performed by glucose meter. Results may be 10%-15% lower than serum/plasma values. (CLIA ID [id number]) Performed By: #### H AUSTIN CMP3M #### [employer] [facility] [address] [place] [address] Glucose [Mass/Vol] 270 mg/dL High 70-100 [facility] Comment on above: Result Comment: Test performed by glucose meter. Results may be 10%-15% lower than serum/plasma values. (CLIA ID [id number]) Performed By: #### H AUSTIN CMP3M #### [employer] [facility] [address], [place] Glucose [Mass/Vol] 245 mg/dL High 70-100 [facility] Comment on above: Result Comment: Test performed by glucose meter. Results may be 10%-15% lower than serum/plasma values. (CLIA ID [id number]) Performed By: #### H AUSTIN CMP3M #### [employer] [address] [address] [address] [place], [place] Glucose [Mass/Vol] 316 mg/dL High 70-100 [facility] Comment on above: Result Comment: Test performed by glucose meter. Results may be 10%-15% lower than serum/plasma values. (CLIA ID [id number]) Performed By: #### H AUSTIN CMP3M #### [facility] [address], [place] Hemogramon 02-26-2019 Erythrocyte distribution width (RBC) [Ratio] 13.1 % Normal 11.5-14.5 [facility] Comment on above: Performed By: #### B GLU #### [facility] [address] [place], [place] Hematocrit (Bld) [Volume fraction] 44.0 % Normal 35.0-47.0 [facility] Comment on above: Performed By: #### B GLU #### [facility] [address] [place] [address] [address] [place], [place] Hemoglobin (Bld) [Mass/Vol] 14.9 g/dL Normal 11.7-16.0 [facility] Comment on above: Performed By: #### B GLU #### [facility] [address], [place] MCH (RBC) [Entitic mass] 30.6 pg Normal 26.0-34.0 [facility] Comment on above: Performed By: #### B GLU #### [facility] [address], [place] MCHC (RBC) [Mass/Vol] 33.9 % Normal 32.0-36.0 [facility] Comment on above: Performed By: #### B GLU #### [facility] [address], [place] MCV (RBC) [Entitic vol] 90.3 fL Normal 79.0-98.0 [facility] Comment on above: Performed By: #### B GLU #### [address] [address] [address] [place], [place] Platelet mean volume (Bld) [Entitic vol] 9.9 fL Normal 7.4-10.4 [facility] Comment on above: Performed By: #### B GLU #### [facility] [address] [place], [place] Platelets (Bld) [#/Vol] 205 10*3/uL Normal 140-440 [facility] Comment on above: Performed By: #### B GLU #### [facility] [address] [place], [place] RBC (Bld) [#/Vol] 4.88 10*6/uL Normal 3.80-5.20 [facility] Comment on above: Performed By: #### B GLU #### [facility] [address], [place] WBC (Bld) [#/Vol] 8.3 10*3/uL Normal 3.6-10.7 [facility] Comment on above: Performed By: #### B GLU #### [facility] [address], [place] POCT Glucoseon 02-26-2019 Glucose [Mass/Vol] 257 mg/dL High 70 - 100 mg/dL [facility] [place] Comment on above: Test performed by gl ucose meter. Results may be 10%-15% lower than serum/plasma values. (CLIA ID [id number]) Interpretation and review of laboratory results Abnormal [facility] [place] Test Performed by [employer] [facility], [address] [place] [address] [facility] [place] Glucose [Mass/Vol] 270 mg/dL High 70 - 100 mg/dL [facility] [place] Comment on above: Test performed by gl ucose meter. Results may be 10%-15% lower than serum/plasma values. (CLIA ID [id number]) Interpretation and review of laboratory results Abnormal [facility] [place] Test Performed by [employer] [facility], [address] [place] [address] [facility] [place] Glucose [Mass/Vol] 245 mg/dL High 70 - 100 mg/dL [facility] [place] Comment on above: Test performed by gl ucose meter. Results may be 10%-15% lower than serum/plasma values. (CLIA ID [id number]) Interpretation and review of laboratory results Abnormal [facility] [place] Test Performed by [employer] [facility], [address] [place] [address] [facility] [place] Glucose [Mass/Vol] 316 mg/dL High 70 - 100 mg/dL [facility] [place] Comment on above: Test performed by gl ucose meter. Results may be 10%-15% lower than serum/plasma values. (CLIA ID [id number]) Interpretation and review of laboratory results Abnormal [facility] [place] Test Performed by [employer] [facility], [address] [place] [address] [facility] [place] Prothrombin Timeon 11-10-201 9 INR Coag (PPP) [Relative time] 1.0 Normal 0.9-1.1 [facility] Comment on above: Result Comment: Gael [...] Performed By: #### Papito AVILA CMP3M #### [facility] [address] [place] [address] PT Coag (PPP) [Time] 10.9 s Normal 9.0-12.0 [facility] Comment on above: Result Comment: . Performed By: #### Papito AVILA CMP3M #### [address] [place] [address] [place] [address] Protime-INRon 02-26-2019 INR Coag (PPP) [Relative time] 1.0 {INR} [place], [place] Comment on above: Recommended Anticoag ulant [...] [Time] 10.9 s 9 - 12 s [place], [place] Comment on above: . Test Performed by [facility], [address] [place] [id number] [place] [address] TS GELon 02-26-2019 TS GEL ABO Group: A Rh, Gel: POS Antibody Screen Gel: NEG Normal [facility] Comment on above: Performed By: #### H MEGHNA AVILA3M #### [address] [place] [address] [place] [address] TYPE AND SCREENon 02-26-2019 Sodium [Moles/Vol] Positive [place], [place] Comment on above: Test Performed by [facility], [facility] [place] [address] Sodium [Moles/Vol] A [place], [place] Sodium [Moles/Vol] Negative [place] Comment on above: Test Performed by [facility], [facility] [place] [address] Test Performed by [facility], [address] [place] [address] [facility], [place] Urinalysison 02-26-2019 Appearance (U) Clear Clear NA [place] Bacteria, UA Negative Negative /[HPF] [place] Bilirubin Urine Negative Negative mg/dL [place] Color (U) Light-Yellow Lt. Yellow NA [place], [place] Glucose, Ur 300 mg/dL Normal (<70) [place], [place] Hyaline Casts, UA Negative Negative /[LPF] [place] Ketones Ql (U) Negative Negative mg/dL [place] LEUKOCYTES, UA 25 Negative Michael/uL [place] Mucous Threads Few Negative /[LPF] [place] Nitrite, Urine Negative Negative NA [place], [place] Occult Blood,Urine 0.03 mg/dL Negative [place] pH (U) 5.0 [pH] [place], [place] Protein (U) [Mass/Vol] Negative Negat johnny mg/dL [place], [place] RBC (U) [#/Vol] 0-2 0 - 2 /[HPF] [place], [place] Specific [place], Urine 1.015 [place], [place] Squam Epithel, UA 0-2 3 - 5 /[HPF] [place] Urobilinogen, Urine Normal Normal ( 0-1) mg/dL [place], [place] WBC, UA 0-2 0 - 5 /[HPF] [place] Test Performed by [facility], [address] [place] [address] [place] VL ARTERIAL PVR LOWER WO EXE RCISEon 02-26-2019 [facility] Multilevel Lower Extremity Arterial Evaluation Report Ordering Physician: Timmy Basilio MD Cleaner Wall: Yamilet Cortes RVT Interpreting Physician: Charlie Solano [...] supine position. Images were obtained using a [employer] 2100 vascular ultrasound machine. Arterial pressure indices: [...] signed by Charlie Solano MD 02/26/2019 09:13 [facility] Incoming Cardiology Results From [facility] - 02/26/2019 9:13 AM EST [facility] Multilevel Lower Extremity Arterial Evaluation Report Ordering Physician: Timmy Basilio MD Cleaner Wall: Yamilet Cortes RVT Interpreting Physician: Charlie Solano [...] supine position. Images were obtained using a [employer] 2100 vascular ultrasound machine. Arterial pressure [...] signed by Charlie Solano MD 02/26/2019 09:[address] [facility] VL DUP CAROTID BILATERALon 1 04-28-2018 [facility] Cardiology Results From [facility] - 02/26/2019 9:08 AM EST [facility] Carotid Duplex Report Ordering Physician: Minoo Encinas Cleaner Wall: Yamilet oCrtes RVT Interpreting Physician: Charlie Solano MD Location: [...] signed by Charlie Solano MD 02/26/2019 09:[address] [facility]- [place], [facility] Carotid Duplex Report Ordering Physician: Minoo Encinas Cleaner Wall: Yamilet Cortes RVT Interpreting Physician: Charlie Solano [...] signed by Charlie Solano MD 02/26/2019 09:[address] [facility]- [place], [place] Pre Op Vein Mappingon [facility] Bilateral LE Vein Mapping For Bypass Report Ordering Physician: Minoo Ecninas Cleaner Wall: Yamilet Cortes RVT Interpreting Physician: Charlie Solano [...] supine position. Images were obtained using a [employer] E9 vascular ultrasound machine. Vein mapping: + [...] signed by Charlie Solano MD 02/26/2019 09:10 [facility], [facility] Incoming Cardiology Results From [facility] - 02/26/2019 9:10 AM EST [facility] Bilateral LE Vein Mapping For Bypass Report Ordering Physician: Minoo Encinas Cleaner Wall: Yamilet Cortes RVT Interpreting Physician: Charlie Solano [...] supine position. Images were obtained using a [employer] E9 vascular ultrasound machine. Vein mapping: + [...] signed by Charlie Solano MD 02/26/2019 09:10 [facility], [place] Complete Urinalysison 2018 Appearance (U) Clear Normal Clear [facility] Comment on above: Performed By: #### B GLU #### [facility] [address] [place], [place] Bacteria LM.HPF (Urine sed) [#/Area] Few Normal Negative [facility] Comment on above: Performed By: #### B GLU #### [facility] [address] [place], [place] Bilirubin,Urine Negative Normal Negative [facility] Comment on above: Performed By: #### B GLU #### [facility] [address] [place], [place] Color (U) Colorless Normal Lt. Yellow [facility] Comment on above: Performed By: #### B GLU #### [place] [address] [address] [place], [place] Glucose Ql (U) 300 mg/dL Normal Normal (<70) [facility] Comment on above: Performed By: #### B GLU #### [place] [address] [address] [place], [place] Ketone,Urine Negative Normal Negative [facility] Comment on above: Performed By: #### B GLU #### [place] [address] [address] [place], [place] Leukocytes,Urine 75 Michael/uL Normal Negative [facility] Comment on above: Performed By: #### B GLU #### [facility] [address] [place], [place] Nitrites,Urine Negative Normal Negative [facility] Comment on above: Performed By: #### B GLU #### [place] [address] [address] [place], [place] Occult Blood,Urine Negative Normal Negative [facility] Comment on above: Performed By: #### B GLU #### [place] [address] [address] [place], [place] pH (U) 5.0 Normal 5.0-8.0 [facility] Comment on above: Performed By: #### B GLU #### [facility] [address] [place], [place] Protein (U) [Mass/Vol] Negative Normal Negative [facility] Comment on above: Performed By: #### B GLU #### [facility] [address] [facility], [place] Specific [place],Urine 1.009 Normal 1.005-1.030 [facility] Comment on above: Performed By: #### B GLU #### [facility] [address] [facility], [place] Squamous Epithelial 0 - 2 Normal 3-5 [facility] Comment on above: Performed By: #### B GLU #### [facility] [address] [place], [place] Urobilinogen,Urine Normal Normal Normal (0-1) [facility] Comment on above: Performed By: #### B GLU #### [facility] [address] [place], [place] WBC LM.HPF (Urine sed) [#/Area] 6 - 10 Normal 0-5 [facility] Comment on above: Performed By: #### B GLU #### [facility] [address] [facility], [place] Glucose,Bedsideon 02-25-2019 Glucose [Mass/Vol] 280 mg/dL High 70-100 [facility] Comment on above: Result Comment: Test performed by glucose meter. Results may be 10%-15% lower than serum/plasma values. (CLIA ID [id number]) Performed By: #### B GLU #### [facility] [address] [place] [address] Glucose [Mass/Vol] 266 mg/dL High 70-100 [facility] Comment on above: Result Comment: Test performed by glucose meter. Results may be 10%-15% lower than serum/plasma values. (CLIA ID [id number]) Performed By: #### B GLU #### [facility] [address] [facility], [place] Glucose [Mass/Vol] 219 mg/dL High 70-100 [facility] Comment on above: Result Comment: Test performed by glucose meter. Results may be 10%-15% lower than serum/plasma values. (CLIA ID [id number]) Performed By: #### B GLU #### [facility] [address] [place] [address] Glucose [Mass/Vol] 338 mg/dL High 70-100 [facility] Comment on above: Result Comment: Test performed by glucose meter. Results may be 10%-15% lower than serum/plasma values. (CLIA ID [id number]) Performed By: #### B GLU #### [facility] [address] [place] [address] Glucose [Mass/Vol] 272 mg/dL High 70-100 [facility] Comment on above: Result Comment: Test performed by glucose meter. Results may be 10%-15% lower than serum/plasma values. (CLIA ID [id number]) Performed By: #### B GLU #### [facility] [address] [place] [address] Hemoglobin A1Con 02-25-2019 HbA1c (Bld) [Mass fraction] 249 mg/dL Normal [facility] Comment on above: Performed By: #### B GLU #### [facility] [address] [place] [address] HbA1c (Bld) [Mass fraction] 10.3 % High 4.0-5.7 [facility] Comment on above: Result Comment: --Hg bA1C levels may not be accurate in patients who have renal disease, received recent blood transfusions, are anemic, or who have dyshemoglobinemia. Performed By: #### B GLU #### [facility] [address] [place] [address] Hemoglobin A1con 02-25-2019 eAG 249 mg/dL [place], [place] HbA1c (Bld) [Mass fraction] 10.3 % High 4 - 5.7 % [place] Comment on above: --HgbA1C levels may not be accurate in patients who have renal disease, received recent blood transfusions, are anemic, or who have dyshemoglobinemia. Interpretation and review of laboratory results Abnormal [facility] Test Performed by [facility], [address] [place] [address] [facility]- [place], [place] POCT Glucoseon 02-25-2019 Glucose [Mass/Vol] 280 mg/dL High 70 - 100 mg/dL [facility] [place] Comment on above: Test performed by gl ucose meter. Results may be 10%-15% lower than serum/plasma values. (CLIA ID [id number]) Interpretation and review of laboratory results Abnormal [facility] [place] Test Performed by [facility] [facility], [address] [place] [address] [facility] [place] Glucose [Mass/Vol] 266 mg/dL High 70 - 100 mg/dL [facility] [place] Comment on above: Test performed by gl ucose meter. Results may be 10%-15% lower than serum/plasma values. (CLIA ID [id number]) Interpretation and review of laboratory results Abnormal [facility] Test Performed by [facility], [address] [place] [address] [facility] [place] Glucose [Mass/Vol] 219 mg/dL High 70 - 100 mg/dL [facility]- [place] Comment on above: Test performed by gl ucose meter. Results may be 10%-15% lower than serum/plasma values. (CLIA ID [id number]) Interpretation and review of laboratory results Abnormal [facility] Test Performed by [facility] [facility], [address] [place] [address] [facility] [place] Glucose [Mass/Vol] 338 mg/dL High 70 - 100 mg/dL [facility]- [place] Comment on above: Test performed by gl ucose meter. Results may be 10%-15% lower than serum/plasma values. (CLIA ID [id number]) Interpretation and review of laboratory results Abnormal [facility] Test Performed by [facility] [facility], [address] [place] [address] [facility] Urinalysison 02-25-2019 Appearance (U) Clear Clear NA [facility] [place] Bacteria, UA Few Negative /[HPF] [facility] [place] Bilirubin Urine Negative Negative mg/dL [place], [place] Color (U) Colorless Lt. Yellow NA [place] Glucose, Ur 300 mg/dL Normal (<70) [place] Ketones Ql (U) Negative Negative mg/dL [place], [place] LEUKOCYTES, UA 75 Negative Michael/uL [place] Nitrite, Urine Negative Negative NA [place] Occult Blood,Urine Negative Negative mg/dL [place] pH (U) 5.0 [pH] [place] Protein (U) [Mass/Vol] Negative Negat johnny mg/dL [place] Specific [place], Urine 1.009 [place], [place] Squam Epithel, UA 0-2 3 - 5 /[HPF] [place] Urobilinogen, Urine Normal Normal ( 0-1) mg/dL [place] WBC, UA 6-10 0 - 5 /[HPF] [place] Test Performed by [facility], [address] [place] [address] [place] VL Carotid Duplex Ultrasound Completeon 02-25-2019 VL Carotid Duplex Ultrasound Complete Patient Name: CHRISTY FRANCIS Ultrasound Exam Date/Time 02/25/2019 13:56:07 EST Exam VL Carotid Duplex Ultrasound Complete Ordering Physician RICHY ENCINAS, MINOO Rivera Accession Number [id number] CPT4 Codes 20636 () Reason For Exam preop CABG Report [facility] Carotid Duplex Report Ordering Physician: Minoo Encinas Cleaner Wall: Yamilet Cortes RVT Interpreting Physician: Charlie Solano [...] 02/26/2019 9:08 am Signed by: CHARLIE SOLANO [facility] VL PVR Arterial Doppler Lwr w/o Exerciseon 02-25-2019 VL PVR Arterial Doppler Lwr w/o Exercise Patient Name: CHRISTY FRANCIS Ultrasound Exam Date/Time 02/25/2019 13:56:47 EST Exam VL PVR Arterial Doppler Lwr w/o Exercise Ordering Physician MD BASILIO JUSTIN Accession Number [id number] CPT4 Codes 25272 () Reason For Exam PVD preop CABG Report [facility] Multilevel Lower Extremity Arterial Evaluation Report Ordering Physician: Timmy Basilio MD Cleaner Wall: Yamilet Cortes RVT Interpreting Physician: Charlie Solano [...] supine position. Images were obtained using a [employer] 2100 vascular ultrasound machine. Arterial pressure indices: [...] 02/26/2019 9:13 am Signed by: CHARLIE SOLANO [facility] VL Vein Map for Preop Bypass Lower [place] 02-25-2019 VL Vein Map for Preop Bypass Lower Ext Patient Name: CHRISTY FRANCIS Ultrasound Exam Date/Time 02/25/2019 13:56:27 EST Exam VL Vein Map for Preop Bypass Lower Ext Ordering Physician RICHY ENCINAS, MINOO Rivera Accession Number [id number] CPT4 Codes 09501 () Reason For Exam pre op CABG please ted legs Report [facility] Bilateral LE Vein Mapping For Bypass Report Ordering Physician: Minoo Encinas Cleaner Wall: Yamilet Cortes RVT Interpreting Physician: Charlie Solano [...] supine position. Images were obtained using a [employer] E9 vascular ultrasound machine. Vein mapping: + [...] 02/26/2019 9:10 am Signed by: CHARLIE SOLANO [facility] Glucose,Bedsideon 02-24-2019 Glucose [Mass/Vol] 285 mg/dL High 70-100 [facility] Comment on above: Result Comment: Test performed by glucose meter. Results may be 10%-15% lower than serum/plasma values. (CLIA ID [id number]) Performed By: #### B GLU #### [facility] [address] [place] [address] Glucose [Mass/Vol] 290 mg/dL High 70-100 [facility] Comment on above: Result Comment: Test performed by glucose meter. Results may be 10%-15% lower than serum/plasma values. (CLIA ID [id number]) Performed By: #### B GLU #### [facility] [address] [place] [address] Glucose [Mass/Vol] 302 mg/dL High 70-100 [facility] Comment on above: Result Comment: Test performed by glucose meter. Results may be 10%-15% lower than serum/plasma values. (CLIA ID [id number]) Performed By: #### B GLU #### [facility] [address] [place] [address] POCT Glucoseon 02-24-2019 Glucose [Mass/Vol] 272 mg/dL High 70 - 100 mg/dL [place] Comment on above: Test performed by gl ucose meter. Results may be 10%-15% lower than serum/plasma values. (CLIA ID [id number]) Interpretation and review of laboratory results Abnormal [facility] [place] Test Performed by [facility], [facility] [place] [address] [place], [place] Glucose [Mass/Vol] 285 mg/dL High 70 - 100 mg/dL [place] Comment on above: Test performed by gl ucose meter. Results may be 10%-15% lower than serum/plasma values. (CLIA ID [id number]) Interpretation and review of laboratory results Abnormal [facility] [place] Test Performed by [facility], [address] [place] [address] [facility], [place] Glucose [Mass/Vol] 290 mg/dL High 70 - 100 mg/dL [facility] Comment on above: Test performed by gl ucose meter. Results may be 10%-15% lower than serum/plasma values. (CLIA ID [id number]) Interpretation and review of laboratory results Abnormal [facility] [place], [place] Test Performed by [facility], [address] [place] [address] [facility], [place] Glucose [Mass/Vol] 302 mg/dL High 70 - 100 mg/dL [facility], [place] Comment on above: Test performed by gl ucose meter. Results may be 10%-15% lower than serum/plasma values. (CLIA ID [id number]) Interpretation and review of laboratory results Abnormal [facility] Test Performed by [facility], [address] [place] [address] [facility] Bedside spirometryon [address] [place] [address] Incoming Cardiology Results From [facility] - 02/28/2019 12:48 PM EST Name: CHRISTY FRANCIS PatientID: [id number] Gender: Female Birthdate: 1950 Study Date: 02/23/2019 3:15:42 P Age: 69 Race: Other Race Height: 62.0 in, 157.5 cm Weight: 176.0 lbs, 80.0 kg Smoke Status: Smokes Pack Years: 26.Tbco Prod: Cigarettes Ordering Physician: [id number] Interpreting Physician: [id number] Wrapper Leaf Inspector: Jennifer Testing Location: [facility] Diagnosis: CAD, HFrEF, pre-surgical values Spirometry Units Pred PreDrug Pre%Pred Post Post%Pred %Change FVC L,btps 2.79 1.80 64. FEV1 L,btps 2.11 1.33 63. FEV1/FVC (%) % 76. 74. 97. TJY17-65% L/s 1.83 1.01 55. 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 Spirometry best effort, met acceptability and repeatability guidelines. Pt sitting upright in bedside chair with both feet on ground. [address]- WILBER Tests to perform: RT17 - BEDSIDE [...] Possible moderate restriction #2. Small airways obstruction [place], [place] Name: CHRISTY FRANCIS PatientID: [id number] Gender: Female Birthdate: 1950 Study Date: 02/23/2019 3:15:42 P Age: 69 Race: Other Race Height: 62.0 in, 157.5 cm Weight: 176.0 lbs, 80.0 kg Smoke Status: Smokes Pack Years: 26.Tbco Prod: Cigarettes Ordering Physician: [id number] Interpreting Physician: [id number] Wrapper Leaf Inspector: Jennifer Testing Location: [facility] Diagnosis: CAD, HFrEF, pre-surgical values Spirometry Units Pred PreDrug Pre%Pred Post Post%Pred %Change FVC L,btps 2.79 1.80 64. FEV1 L,btps 2.11 1.33 63. FEV1/FVC (%) % 76. 74. 97. RBT07-07% L/s 1.83 1.01 55. 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 Spirometry best effort, met acceptability and repeatability guidelines. Pt sitting upright in bedside chair with both feet on ground. [address]- WILBER Tests to perform: RT17 - BEDSIDE [...] Possible moderate restriction #2. Small airways obstruction [place], [place] CBCon 02-23-2019 Erythrocyte distribution width (RBC) [Ratio] 13.1 % 11.5 - 14.5 % [place] Hematocrit (Bld) [Volume fraction] 44.3 % 35 - 47 % [place] Hemoglobin (Bld) [Mass/Vol] 15.1 g/dL 11.7 - 16 g/dL [place], [place] MCH (RBC) [Entitic mass] 30.8 pg 26 - 34 pg [place], [place] MCHC (RBC) [Mass/Vol] 34.0 % 32 - 36 % [place], [place] MCV (RBC) [Entitic vol] 90.3 fL 79 - 98 fL [place], [place] Platelet mean volume (Bld) [Entitic vol] 9.4 fL 7.4 - 10.4 fL [place], [place] Platelets (Bld) [#/Vol] 212 10*3/uL 140 - 440 10*3/uL [place], [place] RBC (Bld) [#/Vol] 4.90 10*6/uL 3.8 - 5.2 10*6/uL [place], [place] WBC (Bld) [#/Vol] 8.6 10*3/uL 3.6 - 10.7 10*3/uL [place] Test Performed by [facility], [address] [place] [id number] [place] [address] CR Chest Portableon 02-24-20 19 CR Chest Portable Patient Name: CHRISTY FRANCIS Diagnostic Radiology Exam Date/Time 02/23/2019 17:30:22 EST Exam CR Chest Portable Ordering Physician RICHY ENCINAS, MINOO Rivera Accession Number [id number] CPT4 Codes 07147 () Reason For Exam preop CABG Report [...] Transcribed Date and Time: 02/23/2019 9:18 Normal [facility] Comp Panel with Mg Reflexon 02-23-2019 Calcium [Mass/Vol] 9.1 mg/dL Normal 8.4-10.4 [facility] Comment on above: Performed By: #### H AUSTIN CMP3M #### [facility] [address] [place], [place] ALP [Catalytic activity/Vol] 57 U/L Normal 38-126 [facility] Comment on above: Performed By: #### H AUSTIN CMP3M #### [facility] [address] [place], [place] ALT [Catalytic activity/Vol] 53 U/L Normal 13-69 [facility] Comment on above: Performed By: #### H AUSTIN CMP3M #### [facility] [address] [place], [place] Anion gap [Moles/Vol] 8 Normal [facility] Comment on above: Performed By: #### H AUSTIN CMP3M #### [facility] [address] [place], [place] AST [Catalytic activity/Vol] 49 U/L High 15-46 [facility] Comment on above: Performed By: #### Papito AVILA CMP3M #### [facility] [address] [place], [place] Bilirubin [Mass/Vol] 0.5 mg/dL Normal 0.2-1.3 [facility] Comment on above: Performed By: #### H AUSTIN CMP3M #### [facility] [address] [place], [place] CO2 [Moles/Vol] 21 mmol/L Low 22-30 [facility] Comment on above: Performed By: #### H AUSTIN CMP3M #### [facility] [address] [place], [place] Glucose [Mass/Vol] 288 mg/dL High 70-100 [facility] Comment on above: Performed By: #### H AUSTIN CMP3M #### [facility] [address] [place], [place] Protein [Mass/Vol] 7.0 g/dL Normal 6.3-8.2 [facility] Comment on above: Performed By: #### H AUSTIN CMP3M #### [facility] [address] [place], [place] Urea nitrogen [Mass/Vol] 24 mg/dL High 7-20 [facility] Comment on above: Performed By: #### H AUSTIN CMP3M #### [place] [address] [address] [place], [place] Creatinine [Mass/Vol] 1.03 mg/dL Normal 0.52-1.25 [facility] Comment on above: Performed By: #### Papito AVILA CMP3M #### [place] [address] [place], [place] GFR/1.73 sq M predicted among blacks MDRD (S/P/Bld) [Vol rate/Area] mL/min/{1.73_m2} Normal >60 [facility] Comment on above: Performed By: #### Papito AVILA CMP3M #### [facility] [address] [place], [place] GFR/1.73 sq M predicted among non-blacks MDRD (S/P/Bld) [Vol rate/Area] 53.1 mL/min/{1.73_m2} Normal >60 [facility] Comment on above: Result Comment: Sour ce- MDRD equation with creatinine calibration to IDMS(NKDEP) eGFR not recommended for drug dose adjustment Performed By: #### Papito AVILA CMP3M #### [facility] [address] [place], [place] Albumin [Mass/Vol] 3.9 g/dL Normal 3.5-5.0 [facility] Comment on above: Performed By: #### Papito AVILA CMP3M #### [facility] [address] [place], [place] Chloride [Moles/Vol] 106 mmol/L Normal 98-107 [facility] Comment on above: Performed By: #### H MEGHNA AVILA3M #### [facility] [address] [place], [place] Potassium [Moles/Vol] 4.8 mmol/L Normal 3.5-5.1 [facility] Comment on above: Performed By: #### H AUSTIN CMP3M #### [facility] [address] [place], [place] Sodium [Moles/Vol] 136 mmol/L Normal 135-145 [facility] Comment on above: Performed By: #### H MEGHNA AVILA3M #### [facility] [address] [place], [place] Comprehensive Metabolic Pane l w/ Reflex to MGon 02-23-2019 Albumin [Mass/Vol] 3.9 g/dL 3.5 - 5 g/dL [place], [place] ALP [Catalytic activity/Vol] 57 U/L 38 - 126 U/L [place], [place] ALT [Catalytic activity/Vol] 53 U/L 13 - 69 U/L [place] Anion gap [Moles/Vol] 8 mmol/L [place], [place] AST [Catalytic activity/Vol] 49 U/L High 15 - 46 U/L [place], [place] Bilirubin Ql (U) 0.5 mg/dL 0.2 - 1.3 mg/dL [place] Calcium [Mass/Vol] 9.1 mg/dL 8.4 - 10. 4 mg/dL [place], [place] Chloride [Moles/Vol] 106 mmol/L 98 - 10 7 mmol/L [place] CO2 [Moles/Vol] 21 mmol/L Low 22 - 30 mmol/L [place] Creatinine [Mass/Vol] 1.03 mg/dL 0.52 - 1.25 mg/dL [place], [place] EGFR IF NonAfrican Hungarian 53.1 mL/min >60 [place], [place] Comment on above: Source- MDRD equatio n with creatinine calibration to IDMS(NKDEP) eGFR not recommended for drug dose adjustment GFR/1.73 sq M predicted among blacks MDRD (S/P/Bld) [Vol rate/Area] mL/min/{1.73_m2} >60 mL/min [place], [place] Glucose [Mass/Vol] 288 mg/dL High 70 - 100 mg/dL [place], [place] Interpretation and review of laboratory results Abnormal [place], [place] Potassium [Moles/Vol] 4.8 mmol/L 3.5 - 5.1 mmol/L [place], [place] Protein [Mass/Vol] 7.0 g/dL 6.3 - 8.2 g/dL [place], [place] Sodium [Moles/Vol] 136 mmol/L 135 - 145 mmol/L [place], [place] Urea nitrogen [Mass/Vol] 24 mg/dL High 7 - 20 mg/dL [place] Test Performed by [facility], [address] [place] [address] [place], [place] Glucose,Bedsideon 02-23-2019 Glucose [Mass/Vol] 296 mg/dL High 70-100 [place], [place] Comment on above: Test performed by gl ucose meter. Results may be 10%-15% lower than serum/plasma values. (CLIA ID [id number]) Result Comment: Test performed by glucose meter. Results may be 10%-15% lower than serum/plasma values. (CLIA ID [id number]) Performed By: #### B GLU #### [place] [address] [place] [address] Glucose [Mass/Vol] 328 mg/dL High 70-100 [facility] Comment on above: Result Comment: Test performed by glucose meter. Results may be 10%-15% lower than serum/plasma values. (CLIA ID [id number]) Performed By: #### B GLU #### [facility] [address] [place] [address] Glucose [Mass/Vol] 348 mg/dL High 70-100 [facility] Comment on above: Result Comment: Test performed by glucose meter. Results may be 10%-15% lower than serum/plasma values. (CLIA ID [id number]) Performed By: #### B GLU #### [place] [address] [address] [place], [place] Glucose [Mass/Vol] 315 mg/dL High 70-100 [facility] Comment on above: Result Comment: Test performed by glucose meter. Results may be 10%-15% lower than serum/plasma values. (CLIA ID [id number]) Performed By: #### B GLU #### [place] [address] [address] [place], [place] Hemogramon 02-23-2019 Erythrocyte distribution width (RBC) [Ratio] 13.1 % Normal 11.5-14.5 [facility] Comment on above: Performed By: #### Papito AVILA CMP3M #### [place] [address] [place], [place] Hematocrit (Bld) [Volume fraction] 44.3 % Normal 35.0-47.0 [facility] Comment on above: Performed By: #### Papito AVILA CMP3M #### [place] [address] [place], [place] Hemoglobin (Bld) [Mass/Vol] 15.1 g/dL Normal 11.7-16.0 [facility] Comment on above: Performed By: #### Papito AVILA CMP3M #### [place] [address] [place], [place] MCH (RBC) [Entitic mass] 30.8 pg Normal 26.0-34.0 [facility] Comment on above: Performed By: #### Papito AVILA CMP3M #### [place] [address] [address] [place], [place] MCHC (RBC) [Mass/Vol] 34.0 % Normal 32.0-36.0 [facility] Comment on above: Performed By: #### Papito AVILA CMP3M #### [address] [place], [place] MCV (RBC) [Entitic vol] 90.3 fL Normal 79.0-98.0 [facility] Comment on above: Performed By: #### Papito AVILA CMP3M #### [facility] [address] [place] [address] Platelet mean volume (Bld) [Entitic vol] 9.4 fL Normal 7.4-10.4 [facility] Comment on above: Performed By: #### H EMOG, CMP3M #### [facility] [address] [place] [address] Platelets (Bld) [#/Vol] 212 10*3/uL Normal 140-440 [facility] Comment on above: Performed By: #### H EMOG, CMP3M #### [facility] [address] [place] [address] RBC (Bld) [#/Vol] 4.90 10*6/uL Normal 3.80-5.20 [facility] Comment on above: Performed By: #### H EMOG CMP3M #### [facility] [address] [place] [address] WBC (Bld) [#/Vol] 8.6 10*3/uL Normal 3.6-10.7 [facility] Comment on above: Performed By: #### H EMOG CMP3M #### [facility] [address] [place] [address] POCT Glucoseon 02-23-2019 Interpretation and review of laboratory results Abnormal [facility] [place] Test Performed by [facility], [facility] [place] [address] [place], [place] Glucose [Mass/Vol] 328 mg/dL High 70 - 100 mg/dL [place] Comment on above: Test performed by gl ucose meter. Results may be 10%-15% lower than serum/plasma values. (CLIA ID [id number]) Interpretation and review of laboratory results Abnormal [employer], [place] Test Performed by [facility] [place], [facility] [place] [address] [facility], [place] Glucose [Mass/Vol] 348 mg/dL High 70 - 100 mg/dL [place], [place] Comment on above: Test performed by gl ucose meter. Results may be 10%-15% lower than serum/plasma values. (CLIA ID [id number]) Interpretation and review of laboratory results Abnormal [facility] [employer] CEM Test Performed by [facility] [place], [address] [place] [address] [facility] Glucose [Mass/Vol] 315 mg/dL High 70 - 100 mg/dL [facility] [employer] CEM Comment on above: Test performed by gl ucose meter. Results may be 10%-15% lower than serum/plasma values. (CLIA ID [id number]) Interpretation and review of laboratory results Abnormal [facility] [employer] CEM Test Performed by [employer] [facility], [address] [place] [address] [facility] [place] XR CHEST PORTABLEon 02-24-20 Patient Name: CHRISTY FRANCIS ---Diagnostic Radiology--- Exam Date/Time 02/23/2019 17:30:22 EST Exam CR Chest Portable Ordering Physician RICHY ENCINAS, MINOO Rivera Accession Number [id number] CPT4 Codes 23305 () Reason For Exam preop CABG Report [...] ALFRED Transcribed Date and Time: 02/23/2019 9:18 [facility] IDAdiana Kathie Torres [facility] 9:20 PM EST Patient Name: CHRISTY FRANCIS ---Diagnostic Radiology--- Exam Date/Time 02/23/2019 17:30:22 EST Exam CR Chest Portable Ordering Physician RICHY ENCINAS, MINOO Rivera Accession Number [id number] CPT4 Codes 28334 () Reason For Exam preop CABG Report [...] ALFRED Transcribed Date and Time: 02/23/2019 9:18 [place], [place] Glucose,Bedsideon 02-22-2019 Glucose [Mass/Vol] 283 mg/dL High 70-100 [facility] Comment on above: Result Comment: Test performed by glucose meter. Results may be 10%-15% lower than serum/plasma values. (CLIA ID [id number]) Performed By: #### B GLU #### [address] [address] Glucose [Mass/Vol] 200 mg/dL High 70-100 [facility] Comment on above: Result Comment: Test performed by glucose meter. Results may be 10%-15% lower than serum/plasma values. (CLIA ID [id number]) Performed By: #### B GLU #### [address] [address] [place] [address] POCT Glucoseon 02-22-2019 Glucose [Mass/Vol] 283 mg/dL High 70 - 100 mg/dL [place], [place] Comment on above: Test performed by gl ucose meter. Results may be 10%-15% lower than serum/plasma values. (CLIA ID [id number]) Interpretation and review of laboratory results Abnormal [place], [place] Test Performed by [facility], [address] [place] [id number] [place] Glucose [Mass/Vol] 200 mg/dL High 70 - 100 mg/dL [place] Comment on above: Test performed by gl ucose meter. Results may be 10%-15% lower than serum/plasma values. (CLIA ID [id number]) Interpretation and review of laboratory results Abnormal [place], [place] Test Performed by [facility] [place], [address] [place] [address] [place], [place] Vital Signs Date Time Vital Sign Value Performing Clinician Facility 01-18-2025 09:28-0400 Body height 157.[address] Marielos Perla DO Work Phone: [facility] 01-18-2025 09:28-0400 Body mass index (BMI) [Ratio] 29.9 kg/m2 Dr. Marielos Perla DO Work Phone: [facility] 01-18-2025 09:28-0400 Body weight 74.[address] Marielos Perla DO Work Phone: [facility] 01-10-2025 10:46-0400 Body height 157.[address] Marielos Perla DO Work Phone: [facility] 01-10-2025 10:46-0400 Body mass index (BMI) [Ratio] 30.5 kg/m2 Dr. Marielos Perla DO Work Phone: [facility] 01-10-2025 10:46-0400 Body weight 75.[address] Marielos Perla DO Work Phone: [facility] 01-10-2025 10:46-0400 Diastolic blood pressure 74 mm[Hg] Dr. Marieols Perla DO Work Phone: [facility] 01-10-2025 10:46-0400 Heart rate 98 /min Dr. Marielos Perla DO Work Phone: [facility] 01-10-2025 10:46-0400 Systolic blood pressure 125 mm[Hg] Dr. Marielos Perla DO Work Phone: [facility] 01-08-2025 16:00-0400 Diastolic blood pressure 105 mm[Hg] Dr. Marielos Perla DO Work Phone: [facility] 01-08-2025 16:00-0400 Heart rate 89 /min Dr. Marielos Perla DO Work Phone: [facility] 01-08-2025 16:00-0400 Respiratory rate 14 /min Dr. Marielos Perla DO Work Phone: [facility] 01-08-2025 16:00-0400 SaO2% (BldA) [Mass fraction] 92 % Dr. Marielos Perla DO Work Phone: [facility] 01-08-2025 16:00-0400 Systolic blood pressure 122 mm[Hg] Dr. Marielos Perla DO Work Phone: [facility] 01-08-2025 07:45-0400 Body temperature 97.4 [degF] Dr. Marielos Perla DO Work Phone: [facility] 01-07-2025 16:04-0400 Body mass index (BMI) [Ratio] 30.2 kg/m2 Dr. Marielos Perla DO Work Phone: [facility] 01-07-2025 16:04-0400 Body weight 75.[address] Marielos Perla DO Work Phone: [facility] 01-03-2025 09:30-0400 Body temperature 97.7 [degF] Dr. Marielos Perla DO Work Phone: [facility] 01-03-2025 09:30-0400 Body weight 74.[address] Marielos Perla DO Work Phone: [facility] 01-03-2025 09:30-0400 Diastolic blood pressure 64 mm[Hg] Dr. Marielos Perla DO Work Phone: [facility] 01-03-2025 09:30-0400 Heart rate 106 /min Dr. Marielos Perla DO Work Phone: [facility] 01-03-2025 09:30-0400 Respiratory rate 16 /min Dr. Marielos Perla DO Work Phone: [facility] 01-03-2025 09:30-0400 SaO2% (BldA) [Mass fraction] 97 % Dr. Marielos Perla DO Work Phone: [facility] 01-03-2025 09:30-0400 Systolic blood pressure 108 mm[Hg] Dr. Marielos Perla DO Work Phone: [facility] 12-12-2024 10:53-0400 Body temperature 97.7 [degF] Dr. Marielos Perla DO Work Phone: [facility] 12-12-2024 10:53-0400 Body weight 76.[address] Marielos Perla DO Work Phone: [facility] 12-12-2024 10:53-0400 Diastolic blood pressure 78 mm[Hg] Dr. Marielos Perla DO Work Phone: [facility] 12-12-2024 10:53-0400 Heart rate 112 /min Dr. Marielos Perla DO Work Phone: [facility] 12-12-2024 10:53-0400 Respiratory rate 18 /min Dr. Marielos Perla DO Work Phone: [facility] 12-12-2024 10:53-0400 SaO2% (BldA) [Mass fraction] 98 % Dr. Marielos Perla DO Work Phone: [facility] 12-12-2024 10:53-0400 Systolic blood pressure 126 mm[Hg] Dr. Marielos Perla DO Work Phone: [facility] 11-02-2024 10:17-0400 Body height 157.[address] Marielos Perla DO Work Phone: [facility] 11-02-2024 10:17-0400 Body mass index (BMI) [Ratio] 30.5 kg/m2 Dr. Marielos Perla DO Work Phone: [facility] 11-02-2024 10:17-0400 Body weight 75.[address] Marielos Perla DO Work Phone: [facility] 11-02-2024 10:17-0400 Diastolic blood pressure 65 mm[Hg] Dr. Marielos Perla DO Work Phone: [facility] 11-02-2024 10:17-0400 Respiratory rate 18 /min Dr. Marielos Perla DO Work Phone: [facility] 11-02-2024 10:17-0400 Systolic blood pressure 112 mm[Hg] Dr. Marielos Perla DO Work Phone: [facility] 06-05-2024 10:52-0500 Body height 157.[address] Marielos Perla DO Work Phone: [facility] 06-05-2024 10:52-0500 Body mass index (BMI) [Ratio] 34.2 kg/m2 Dr. Marielos Perla DO Work Phone: [facility] 06-05-2024 10:52-0500 Body weight 84.[address] Marielos Perla DO Work Phone: [facility] 06-05-2024 10:52-0500 Diastolic blood pressure 73 mm[Hg] Dr. Marielos Perla DO Work Phone: [facility] 06-05-2024 10:52-0500 Heart rate 98 /min Dr. Marielos Perla DO Work Phone: [facility] 06-05-2024 10:52-0500 Respiratory rate 18 /min Dr. Marielos Perla DO Work Phone: [facility] 06-05-2024 10:52-0500 Systolic blood pressure 119 mm[Hg] Dr. Marielos Perla DO Work Phone: [facility] 11-18-2022 13:38-0400 Body height 157.[address] Marielos Perla Work Phone: [facility] 11-18-2022 13:38-0400 Body mass index (BMI) [Ratio] 35.8 kg/m2 Dr. Marielos Perla Work Phone: [facility] 11-18-2022 13:38-0400 Body weight 88.[address] Marielos Perla Work Phone: [facility] 11-18-2022 13:38-0400 Diastolic blood pressure 80 mm[Hg] Dr. Marielos Perla Work Phone: [facility] 11-18-2022 13:38-0400 Heart rate 93 /min Dr. Marielos Perla Work Phone: [facility] 11-18-2022 13:38-0400 Respiratory rate 18 /min Dr. Marielos Perla Work Phone: [facility] 11-18-2022 13:38-0400 SaO2% (BldA) [Mass fraction] 95 % Dr. Marielos Perla Work Phone: [facility] 11-18-2022 13:38-0400 Systolic blood pressure 146 mm[Hg] Dr. Marielos Perla Work Phone: [facility] 08-20-2022 09:54-0400 Body height 157.[address] Marielos Perla Work Phone: [facility] 08-20-2022 09:54-0400 Body mass index (BMI) [Ratio] 35.3 kg/m2 Dr. Marielos Perla Work Phone: [facility] 08-20-2022 09:54-0400 Body weight 87.[address] Marielos Perla Work Phone: [facility] 08-20-2022 09:54-0400 Diastolic blood pressure 79 mm[Hg] Dr. Marielos Perla Work Phone: [facility] 08-20-2022 09:54-0400 Heart rate 76 /min Dr. Marielos Perla Work Phone: [facility] 08-20-2022 09:54-0400 Respiratory rate 18 /min Dr. Marielos Perla Work Phone: [facility] 08-20-2022 09:54-0400 Systolic blood pressure 139 mm[Hg] Dr. Marielos Perla Work Phone: [facility] 03-29-2022 18:34-0500 Body temperature 98.3 [degF] [facility] 03-29-2022 18:34-0500 Diastolic blood pressure 85 mm[Hg] [facility] 03-29-2022 18:34-0500 Heart rate 74 /min [facility] 03-29-2022 18:34-0500 Respiratory rate 18 /min [facility] 03-29-2022 18:34-0500 SaO2% (BldA) [Mass fraction] 99 % [facility] 03-29-2022 18:34-0500 Systolic blood pressure 125 mm[Hg] [facility] 03-29-2022 17:27-0500 Body height 157.[address] [facility] 03-29-2022 17:27-0500 Body mass index (BMI) [Ratio] 33.8 kg/m2 [facility] 03-29-2022 17:27-0500 Body weight 83.[address] [facility] 03-03-2019 15:30-0500 BP Diastolic 55 mm[Hg] [place], [place] 03-03-2019 15:30-0500 BP Systolic 124 mm[Hg] [place] 03-03-2019 15:30-0500 Pulse (Heart Rate) 83 /min [place], [place] 03-03-2019 15:30-0500 Pulse Oximetry 96 % [place], [place] 03-03-2019 15:30-0500 Respiratory Rate 18 /min [facility] [place] 03-03-2019 11:51-0500 Body Temperature 97.81 [degF] Mil Ashley [facility], [place] 03-03-2019 00:00-0500 BMI (Body Mass Index) 34.14 kg/m2 Mil Ashley [facility], [place] 03-03-2019 00:00-0500 Body weight 81.97 kg Mil Pettit [facility] [place] 02-28-2019 12:00-0500 Height 154.9 cm Mil Pettit [facility] , [place] Encounters Encounter Date Encounter Type Care Provider Facility Start: 02-13-2025 ambulatory [facility] Facility :[facility] Start: 01-29-2025 ambulatory [facility] Facility :[facility] Start: 01-22-2025 [facility] Start: 01-18-2025 End: 01-18-2025 Patient encounter procedure Lidia HOLLAND -[facility] Work Phone: Start: 01-18-2025 End: 01-18-[address] Marielos Perla DO Work Phone: -[facility] Start: 01-10-2025 End: 01-10-[address] Marielos Perla DO Work Phone: -[facility] Start: 01-10-2025 End: 01-10-2025 Patient encounter procedure Lamar Olivera FIELD TRAINING MANAGER-C -[facility] Work Phone: Start: 01-10-2025 End: 01-10-2025 Patient encounter procedure Lamar Olivera FIELD TRAINING MANAGER-C -[facility] Work Phone: Start: 01-10-2025 End: 01-10-[address] Marielos Perla DO Work Phone: -[facility] Start: 01-10-2025 End: 01-10-2025 ambulatory [facility] Facility:[facility] Start: 01-08-2025 Non-patient / Non-visit Dr. Rupali Lott DO -[facility] Work Phone: Start: 01-08-2025 Non-patient / Non-visit Dr. Fred ROMERO -[facility] Start: 01-07-2025 End: 01-08-2025 ambulatory Rupali Lott Facility:[facility] Start: 01-07-2025 End: 01-08-2025 Evaluation and management of inpatient Dr. Rupali Lott DO -[facility] Work Phone: Start: 01-07-2025 End: 01-08-[address] Marielos Perla DO Work Phone: -[facility] Start: 01-03-2025 End: 01-03-2025 Patient encounter procedure Ava Young [place] -[facility] Work Phone: Start: 01-03-2025 End: 01-03-[address] Marielos Perla DO Work Phone: -[facility] Start: 12-22-2024 Non-patient / Non-visit Dr. Grant coburn MD -[facility] Start: 12-22-2024 End: 12-22-[address] Marielos Perla DO Work Phone: -Cardiovascular Services Start: 12-22-2024 End: 12-22-2024 Patient encounter procedure Ava HOLLAND -[facility] Work Phone: Start: 12-22-2024 End: 12-22-2024 ambulatory Ava Young Facility:[facility] Start: 12-12-2024 End: 12-12-2024 Patient encounter procedure Ava Young [facility] Work Phone: Start: 12-12-2024 End: 12-12-[address] Marielos Perla DO Work Phone: -[facility] Start: 12-06-2024 End: 12-06-[address] Marielos Perla DO Work Phone: -[facility] Start: 12-06-2024 End: 12-06-2024 Patient encounter procedure Jennifer Bailey PA -[facility] [place] Work Phone: Start: 12-06-2024 End: 12-06-2024 ambulatory Jennifer Bailey Facility:[facility] Start: 11-29-2024 End: 11-29-[address] Marielos Perla DO Work Phone: -[facility] Start: 11-29-2024 End: 11-29-[address] Marielos Perla DO -[facility] Work Phone: Start: 11-29-2024 End: 11-29-2024 ambulatory Marielos Perla Facility:[facility] Start: 11-02-2024 End: 11-02-2024 Patient encounter procedure Jennifer Bailey PA -[facility] Work Phone: Start: 11-02-2024 End: 11-02-[address] Marielos Perla DO Work Phone: -[facility] Start: 11-02-2024 End: 11-02-2024 ambulatory Jennifer Bailey Facility:[facility] Start: 09-18-2024 End: 09-18-[address] Marielos Perla DO Work Phone: [facility] Work Phone: Start: 09-18-2024 End: 09-18-2024 Patient encounter procedure Rand Mckeon FIELD TRAINING MANAGER-C -[facility] [place] Work Phone: Start: 09-18-2024 End: 09-18-2024 ambulatory Marielos Perla Facility:[facility] Start: 06-05-2024 End: 06-05-2024 Patient encounter procedure Charlie Johnson FIELD TRAINING MANAGERJessica -[facility] Work Phone: Start: 06-05-2024 End: 06-05-2024 ambulatory Marielos Perla Facility:[facility] Start: 03-09-2024 End: 03-09-2024 ambulatory Charlie Johnson NP Facility:[facility] Start: 02-19-2024 End: 02-21-2024 ambulatory Grant Castelan Facility:[facility] Start: 01-27-2024 End: 01-27-2024 ambulatory Marielos Perla Facility:[facility] Start: 07-19-2023 End: 07-19-2023 ambulatory [facility] Work Phone: Start: 07-19-2023 End: 07-19-2023 Patient encounter procedure [facility]-Radiology, [place] Work Phone: Start: 06-14-2023 End: 06-14-2023 ambulatory [facility] Work Phone: Start: 06-14-2023 End: 06-14-2023 Patient encounter procedure [facility]-Cat Scan, [facility] Work Phone: Start: 11-25-2022 End: 11-25-[address] Marielos Perla Work Phone: [facility] Work Phone: Start: 11-25-2022 End: 11-25-[address] Marielos Perla Work Phone: [facility]-Pulmonary Services/Neurology Work Phone: Start: 11-23-2022 End: 11-23-[address] Marielos Perla Work Phone: [facility] Work Phone: Start: 11-23-2022 End: 11-23-[address] Marielos Perla Work Phone: [facility] Start: 11-18-2022 End: 11-18-[address] Marielos Perla Work Phone: [facility] Work Phone: Start: 08-20-2022 End: 08-20-[address] Marielos Perla Work Phone: [facility] Work Phone: Start: 08-14-2022 End: 08-14-[address] Marielos Perla Work Phone: [facility] Work Phone: Start: 08-14-2022 End: 08-14-[address] Marielos Perla Work Phone: [facility]-Laboratory Start: 07-08-2022 End: 07-08-[address] Marielos Perla Work Phone: [facility] Work Phone: Start: 07-08-2022 End: 07-08-[address] Marielos Perla Work Phone: [facility]-Cardiovascular Services Start: 06-16-[address] Marielos Perla Work Phone: [facility]-Physical Therapy Start: 06-09-2022 End: 06-09-[address] Marielos Perla Work Phone: [facility] Start: 05-23-2022 End: 05-23-2022 ambulatory [facility] Work Phone: Start: 05-23-2022 End: 05-23-2022 Patient encounter procedure [facility] Start: 03-29-2022 End: 03-29-2022 Emergency department patient visit [facility]-Emergency Department Start: 02-25-2022 End: 02-25-2022 ambulatory [facility] Work Phone: Start: 02-25-2022 End: 02-25-2022 Patient encounter procedure [facility]-Laboratory Start: 02-22-2019 End: 03-03-2019 Evaluation and management of inpatient Mil Pettit Work Phone: [facility] Comment on above: CAD in [place] artery (Primary Dx); S/P CABG x 3; Type 2 diabetes mellitus with other circulatory complication, with long-term current use of insulin (HCC) Procedures Date Procedure Procedure Detail Performing Clinician Start: 01-07-2025 CT angiography of ch est with contrast Dr. Marielos Perla DO Work Phone: Start: 01-07-2025 Radiologic exam chest [address] Marielos Perla DO Work Phone: Start: 01-07-2025 D-dimer assay, quantitative Dr. Marielos Perla DO Work Phone: Comment on above: CRITICAL VALUE DELACRUZ D TO H. ORR01/07/25 1321 Lalita Temple.RESULTS READ BACK BY SAME. D-Dimer ELEVATED (>0.49): Additional studies and clinicalassessments are indicated to conclude diagnosis of:Deep Vein Thrombosis (DVT) or Pulmonary Embolism (PE) Start: 01-07-[address] Marielos Perla DO Work Phone: Start: 12-22-2024 X-ray of lumbar spin e, [...] 03-01-2019 Basic metabolic pane l calcium total Stephanie Willtt Work Phone: Start: 03-01-2019 Gluc bld gluc [...] 03-01-2019 Potassium serum plas ma/whole blood Michael Nunez Work Phone: Start: 03-01-2019 [...] 02-28-2019 Potassium serum plas ma/whole blood Lukas Moise Work Phone: Start: 02-28-2019 [...] Work Phone: Start: 02-27-2019 SPEAKING VALVE Chantell pateaixa Work Phone: Start: 02-27-2019 Radiologic exam ches t single view Grant A Atylor Work Phone: Start: 02-27-2019 Gluc bld gluc mntr d ev cleared fda spec home use Mil Wilver Work Phone: Start: 02-27-2019 End: 02-27-2019 Assay of magnesium Mil Pettit Work Phone: Start: 02-27-2019 Assay of phosphorus inorganic Mil Pettit Work Phone: Start: 02-27-2019 End: 02-27-2019 Basic metabolic panel calcium total Mil Pettit Work Phone: Start: 02-27-2019 End: 02-27-2019 Blood count complete automated Mil Pettit Work Phone: Start: 02-27-2019 BLOOD GAS, ARTERIAL Allan garcia Wilver Work Phone: Start: 02-27-2019 Calcium ionized Mil Wilver Work Phone: Start: 02-27-2019 PROTIME/INR & PTT Jean-Claude Pettit Work Phone: Start: 02-27-2019 ECHOCARDIOGRAM TRANSESOPHAGEAL Ronda Carmona Work Phone: Start: 02-27-2019 Gluc bld gluc mntr d ev cleared fda spec home use Milelaine Pettit Work Phone: Start: 02-27-2019 End: 02-28-2019 [...] Non-invasive physiol ogic study extremity 3 cecilia Wright Chetna Work Phone: Start: 02-25-2019 Dup-scan xtr veins [...] d ev cleared fda spec home use [employer] Work Phone: Start: 02-25-2019 Urnls dip stick/tabl et rgnt auto w/o microscopy Lukas Moise Work Phone: Start: 02-25-2019 Hemoglobin glycosylated a1c Lukas Moise Work Phone: Start: 02-24-2019 Gluc bld gluc mntr d ev cleared fda spec home use [employer] Work Phone: Start: 02-24-2019 Gluc bld gluc mntr d ev cleared fda spec home use [employer] Work Phone: Start: 02-24-2019 Gluc bld gluc mntr d ev cleared fda spec home use [employer] Work Phone: Start: 02-24-2019 Gluc bld gluc mntr d ev cleared fda spec home use [employer] Work Phone: Start: 02-23-2019 Gluc bld gluc mntr d ev cleared fda spec home use [employer] Work Phone: Start: 02-23-2019 Radiologic exam ches [...] artery bypass graft x 3 Charlie Johnson FIELD TRAINING MANAGER-C Comment on above: CABG x3 with GIRALDO to LAD, SVG to OM 2, and SVG to PDA of RCA on 02/27/[address] Taylor at [facility]; Plan of Treatment Date Care Activity Detail Author Start: 01-29-2025 MG Breast - bilatera l Screening [facility] Start: 01-18-2025 X-ray of lumbosacral spine L/S Spine Bending Flex/Ext [facility] Start: 01-18-2025 XR Spine Lumbar and Sacrum Views [facility] Start: 01-08-2025 Patient discharge [facility] Start: 01-08-2025 Notification of physician [facility] Start: 01-08-2025 Patient education [facility] Start: 01-08-2025 Provision of activit y privileges [facility] Start: 01-08-2025 Pulse taking [facility] Start: 01-08-2025 Taking patient vital signs [facility] Start: 01-08-2025 Wound care [facility] Start: 01-08-2025 [facility] Start: 01-08-2025 Catheterization of vein [facility] Start: 01-08-2025 Notification of physician [facility] Start: 01-08-2025 Preoperative care [facility] Start: 01-08-2025 [facility] Start: 01-07-2025 End: 01-07-2025 [facility] Start: 01-07-2025 Care regimes management [facility] Start: 01-07-2025 Notification of physician [facility] Start: 01-07-2025 Referral to guillotine trimmer [facility] Start: 01-07-2025 End: 01-07-2025 [facility] Start: 01-07-2025 Assessment of risk o f venous thromboembolism [facility] Start: 01-07-2025 Insertion of cathete r into peripheral vein [facility] Start: 01-07-2025 Measuring intake and output [facility] Start: 01-07-2025 Providing care accor ding to standard [facility] Start: 01-07-2025 Provision of activit y privileges [facility] Start: 01-07-2025 Referral for physica l therapy [facility] Start: 01-07-2025 Referral to occupati onal therapist [facility] Start: 01-07-2025 Following clinical pathway protocol [facility] Start: 01-07-2025 Admission procedure [facility] Start: 01-07-2025 [facility] Start: 01-03-2025 CT of abdominal aort a with contrast [facility] Start: 06-09-2022 Patient referral [facility] Work Phone: Start: 02-24-2020 Creatinine monitoring Creatinine mon itoring [place], [place] Start: 02-24-2020 Potassium monitoring Potassium monit [place]ing [place] Start: 03-14-2019 End: 03-14-2019 Office Visit 03/14/2019 Office Visit Cardiothoracic Surgery Ronda Carmona, [employer]OVER - [employer]VERTER SKIMMER [address] [place] [address] [phone] [facility] Start: 02-24-2019 Annual Wellness Visi t (AWV) Annual Wellness Visit (AWV) [place], [place] Start: 12-18-2018 Influenza vaccination Flu vaccine (# 1) [place], [place] Start: 2015 DEXA (modify frequen cy per FRAX score) DEXA (modify frequency per FRAX score) [place] Start: 2015 Pneumococcal 65+ yea rs Vaccine (1 of 1 - PPSV23) Pneumococcal 65+ years Vaccine (1 of 1 - PPSV23) [place] Start: 01-31-2000 Breast cancer screen Breast cancer s creen [place] Start: 01-31-2000 Colon cancer screen colonoscopy Colon cancer screen colonoscopy [place] Start: 01-31-2000 Shingles Vaccine (1 of 2) Shingles V accine (1 of 2) [place] Start: 01-31-1968 Diabetic microalbumi ximena test Diabetic microalbuminuria test [place] Start: 1961 DTaP/Tdap/Td vaccine (1 - Tdap) DTaP/Tdap/Td vaccine (1 - Tdap) [place] Start: 01-31-1960 [object Object] Diabetic foot exam [place], [place] Start: 01-31-1960 A1C test (Diabetic o r Prediabetic) A1C test (Diabetic or Prediabetic) [place] Start: 01-31-1960 Diabetic retinal exam Diabetic retin [place] exam [place] Start: 01-31-1960 Lipid screen Lipid screen [place], [place] Start: 1950 Hepatitis C screen Hepatitis C scree [place] Acapella Acapella Respira tory Care Routine Every 2hr while awake until discontinued starting 02/27/2019 [place] Comment on above: Every 2hr while awak e until discontinued starting 02/27/2019 Ankle brachial press ure index [facility] Basic metabolic 2000 panel Basic Metabolic Panel Lab Routine Daily until discontinued starting 02/27/2019, 4 completed [place] Comment on above: Daily until disconti nued starting 02/27/2019, 4 completed Basic metabolic 2008 panel with ionized calcium - Serum or Plasma [facility] Blood chemistry [facility] CBC CBC Lab Routine Daily until discontinued starting 02/27/2019, 5 completed [place] Comment on above: Daily until disconti nued starting 02/27/2019, 5 completed [facility] Comment on above: 0800, 1200, 1600, 20 00 (respiratory use only) until discontinued starting 02/27/2019 Every 4hr until disc ontinued starting 03/02/2019 Incentive spirometry Incentive s pirometry Respiratory Care Routine Every 1hr while awake until discontinued starting 02/27/2019 [facility] Comment on above: Every 1hr while awak e until discontinued starting 02/27/2019 Initiate Oxygen Ther apy Protocol Initiate Oxygen Therapy Protocol Respiratory Care Routine Daily until discontinued starting 02/27/2019 [facility] Comment on above: Daily until disconti nued starting 02/27/2019 MR Lumbar spine [facility] Patient Education Bruises (Contu sions) ED Abrasion [facility] Work Phone: Patient referral [facility] Work Phone: POCT glucose [facility] [place] Comment on above: 4X Daily (AC & HS) u ntil discontinued starting 03/01/2019 As Needed until disc ontinued starting 03/01/2019 End: 02-23-2019 Urinalysis Urinalysis Lab Routine One Time for 1 Occurrences starting 02/23/2019 until 02/23/2019 [facility] Comment on above: One Time for 1 Occur rences starting 02/23/2019 until 02/23/2019 Urinalysis Urinalysis Lab R outine 02/23/2019 6:49 PM EST [facility] US [facility] XR CHEST PORTABLE XR CHEST MIHIR BLE Imaging Routine Daily until discontinued starting 02/28/2019, 4 completed [place] Comment on above: Daily until disconti nued starting 02/28/2019, 4 completed XR Lumbar spine 2 or 3 Views [facility] Immunizations Immunization Date Immunization Notes Care Provider Sher ferreira 01-18-2024 influenza, high dose seasonal, preservative-free Dr. Marielos Perla DO Work Phone: [facility] 07-11-2020 Covid (Pfizer) [facility] 07-09-2020 tetanus toxoid, redu deejay diphtheria toxoid, and acellular pertussis vaccine, adsorbed [facility] 06-20-2020 Covid (Pfizer) [facility] 02-01-2019 Influenza virus vaccine [facility] Payers Date Payer Category Payer Medicare [id number] 2023 Self-pay [id number] 2023 Unknown [id number] 2018 Medicare HUMANA MEDICARE HUMANA CHOICE-PPO MEDICARE xxxxxxxxx 2018-Present [address] [address] [place] [address] xxxxxxxxx [id number] Medicare [id number] Medicare MEDICARE PART A B [id number] Unknown [id number] [id number]2 Unknown [id number] 2.16840.1.192215.3.579.2.462 Unknown [id number] 2.16840.1.567260.3.579.2.462 Unknown [id number] 2.840.1.890042.3.579.2.462 Unknown [id number] 2.16.840.1.738039.3.579.2.462 Unknown [id number] 2.16.840.1.593744.3.579.2.462 Unknown [id number] 2.16.840.1.360956.3.579.2.462 Unknown [id number] 2.16840.1.406464.3.579.2.462 Unknown [id number] 2.16840.1.875337.3.579.2.462 Unknown [id number] 2.16.840.1.587573.3.579.2.462 Unknown [id number] 2.16.840.1.056079.3.579.2.462 Unknown [id number] 2.16.840.1.977704.3.579.2.462 Unknown [id number] 2.16.840.1.328860.3.579.2.462 Unknown [id number] 2.16.840.1.481015.3.579.2.462 Unknown [id number] 2.16.840.1.052808.3.579.2.462 Unknown [id number] 2.840.1.153271.3.579.2.462 Unknown [id number] 2.840.1.788276.3.579.2.462 Unknown [id number] 2.840.1.622516.3.579.2.462 Unknown [id number] 2.840.1.273778.3.579.2.462 Unknown [id number] 2.840.1.606447.3.579.2.462 Unknown [id number] 2.840.1.441638.3.579.2.462 Unknown [id number] 2.840.1.707454.3.579.2.462 Unknown [id number] 2.840.1.895150.3.579.2.462 Unknown [id number] 2.840.1.540947.3.579.2.462 Unknown [id number] 2.16.840.1.299897.3.579.2.462 Unknown [id number] 2.16.840.1.971141.3.579.2.462 Unknown [id number] 2.16840.1.696004.3.579.2.462 Unknown [id number] 2.840.1.352141.3.579.2.462 Unknown [id number] 2.16.840.1.925632.3.579.2.462 Social History Date Type Detail Facility Start: 02-23-2019 End: 11-18-2022 Tobacco smoking status NHIS Unknown if ever smoked [facility] Sex Assigned At Not on file [place] Start: 01-15-2021 None [facility] Start: 01-15-2021 Homeless [facility] Start: 01-15-2021 Cigarettes [facility] Start: 1950 Sex Assigned At Female [facility] Start: 03-09-2024 End: 01-10-2025 Tobacco smoking status NHIS Current Light tobacco smoker [facility] Sex Female [facility] Medical Equipment Procedure Code Equipment Code Equipment Origin al Text Equipment Identifier Dates Test three times a day & as needed for symptoms of irregular blood glucose. [id number] Start: 03-03-2019 Goals Date Patient Goal Desired Activity /State Functional Status Date Assessment Result Facility 01-08-2025 Functional status Ambulates [facility] Work Phone: Mental Status Date Assessment Result Facility 01-08-2025 Cognitive function Voice/Name [facility] Work Phone: Clinical Notes 02-17-2019 to 01-10-2025 Note Date & Type Note Facility 01-10-2025 Progress note [facility] 01-08-2025 Consult note [facility] 01-08-2025 Discharge summary Note Date/Time January 08, 2025 2:20pm [facility] Medical Records Department [address] [place] [address] Discharge Summary 01/08/25 1357 MR#: [id number] Acct: [id number] Name: CHRISTY FRANCIS Rep #:[id number] : 1950 74 From: Rupali Lott DO PCP: Dr. Marielos Perla DO Status:ADM BRIAN Location: [place] [address] Providers Date of Admission: 01/07/25 Date of Discharge: 01/08/25 Primary Care Physician: Dr. Marielos Perla DO Consultations 01/07/25 17:56 Consult: Cardiology Routine Consulting Provider: Jorge Anderson Reason for Consult: chest pain EMERGENT Consult: No MD Notified: Yes Date Notified: 01/07/25 Time Notified: 17:56 Method of Notification: Text Reason For Visit: CHEST PAIN Diagnosis Discharge Diagnosis (1) Chest pain: Status: Acute Code(s): R07.9 - Chest pain, unspecified (2) History of coronary artery bypass graft x 3: Status: Chronic Code(s): Z95.1 - Presence of aortocoronary bypass graft (3) Essential hypertension: Status: Chronic Code(s): I10 - Essential (primary) hypertension (4) HLD (hyperlipidemia): Status: Chronic Code(s): E78.5 - Hyperlipidemia, unspecified Qualifiers: Hyperlipidemia type: unspecified Qualified Code(s): E78.5 - Hyperlipidemia, unspecified (5) PAD (peripheral artery disease): Status: Chronic Code(s): I73.9 - Peripheral vascular disease, unspecified Medications at Discharge Home Medications aspirin 81 mg tablet,delayed release 81 mg PO DAILY heart health 12/15/13 duloxetine 60 mg capsule,delayed release 60 mg PO DAILY mental health 08/20/22 allopurinol 300 mg tablet 300 mg PO BID gout 11/05/23 cilostazol 100 mg tablet 100 mg PO BID anti platelet 11/05/23 oxycodone-acetaminophen 5 mg-325 mg tablet 1 tab PO TID PRN PRN pain 02/19/24 rosuvastatin 10 mg tablet See Rx Instructions .Route .COMPLEX cholesterol #90 TABLETS 04/17/24 furosemide 40 mg tablet 40 mg PO DAILY diuretic #90 TABLETS 06/19/24 glimepiride 4 mg tablet 4 mg PO BID 11/02/24 insulin aspar prt-insulin aspart 100 unit/mL (70-30) subcutaneous soln (Novolog Mix 70-30 U-100 Insuln) 20 unit subcut QAM diabetes 11/02/24 nitroglycerin 0.4 mg sublingual tablet 0.4 mg sublingual Q5-15M PRN chest pain #25 tabs 11/02/24 tirzepatide 10 mg/0.5 mL subcutaneous pen injector (Mounjaro) 10 mg subcut .every week 11/02/24 isosorbide mononitrate 60 mg tablet,extended release 24 hr 60 mg PO BID 01/07/25 omeprazole 20 mg capsule,delayed release 20 mg PO DAILY 01/07/25 losartan 25 mg tablet 12.5 mg (1/2 x 25 mg) PO DAILY #15 tabs 01/08/25 metoprolol tartrate 50 mg tablet 75 mg (1.5 x 50 mg) PO BID blood pressure #180 tabs 01/08/25 ranolazine 500 mg tablet,extended release,12 hr 500 mg PO BID #60 tabs 01/08/25 Hospital Course Operations None Procedures Cardiac catheterization, EKG and - (Chest x-ray/CTA chest) Summary of Care Provided Minutes Spent on Discharge: 37 Hospital Course: Mrs. Francis is a 74-year-old white female who presented to the emergency department at [facility] on 01/07/2025 with a chief complaint of chest pain. She has an extensive cardiac history with previous CABG in 2019 at [facility] as well as PVD, HTN/HPL, and DM-2. She complained of indigestion several weeks prior to admission and had chest pain that started around 9 AM on the morning of admission. She denied any concomitant shortness of breath, nausea, diaphoresis, or vomiting. She had been compliant with all of her home medications. Vital signs on presentation showed a temperature of 97.3, heart rate 116, respiratory was 18, blood pressure was 128/98, and pulse ox was 98% onroom air. CBC showed a mild leukocytosis white count 11.9 but an unremarkable differential. Chemistry panel showed normal electrolytes with a BUN of 29 and aserum creatinine of 1.26. A D-dimer was obtained and found to be elevated at 0.83 and her initial troponin was 27. Follow-up troponin was found to be 28 on delta and a 4-hour troponin of 27. EKG was unremarkable for any acute ST-T wavechanges concerning for acute ischemia. Chest x-ray showed no acute findings. CTA of her chest showed no significant abnormalities. She was admitted under observation status with consultation to cardiology. Cardiology evaluated patient and given her history and symptoms was taken for cardiac catheterization. Cardiac catheterization revealed GIRALDO to LAD being patent, SVGto the PDA was patent, and SVG to the obtuse marginal branch was occluded which appears to be chronic, ostial left main coronary artery disease was noted as well as left circumflex but both were stable compared to previous. Aggressive medical therapy was recommended and she is to continue home medication with addition of Ranexa for symptoms. Patient did report she is having intermittent tachycardia with heart rates in the 115's at home. Given this we increased her beta-jessica from 50 to 75 mg p.o. twice daily and decreased her losartan from 25 to 12.5 mg p.o. twice daily. I do feel she needs to continue her ARB given her diabetes for renal protection and this is why we did not discontinue this medication completely and made adjustments. I have asked her to follow-up with her primary care physician within the next week and with cardiology within the next month. Prescriptions for her increased dose of metoprolol, decrease dose of losartan, and Ranexa were sent to local pharmacy prior to discharge. Patientwas discharged home on 01/08/2025 in stable condition. Discharge diagnoses: Chest pain-resolved Elevated troponin secondary to decreased renal clearance CKD stage IIIb Leukocytosis-resolved Chronic eosinophilia Essential hypertension Hyperlipidemia DM-2 PVD History of gout GERD HFrEF-recovered LV Osteoarthritis Obesity Tobacco abuse Physical Exam Const alert, oriented x3, no apparent distress, no limitations and well nourished; Negative for average body habitus or healthy appearing Constitutional Narrative: Very pleasant, older, white female, sitting up in bed, daughter at bedside, appears comfortable, nontoxic, very pleasant General Appearance: cooperative, comfortable, well kempt and well developed Exam Limitations: no limitations Nutritional Appearance: obese HEENT normocephalic, head/scalp atraumatic, hearing grossly normal bilaterally and moist oral mucous membranes HEENT Narrative: Mallampati 3-4, no thrush Eyes conjunctivae normal Eyes Narrative: No scleral icterus Neck supple Neck Narrative: Neck is short thick, trachea midline Resp normal respiratory effort, no retractions, no use of accessory muscles and clearto auscultation bilaterally Resp Narrative: Diffusely diminished but clear Auscultation: Negative for rales, rhonchi or wheezes Cardio regular rate, regular rhythm, S1 normal heart sound, S2 normal heart sound, no murmurs, no rub and no gallops GI normal to inspection, nondistended, normoactive bowel sounds, soft to palpation and non-tender Extremity no clubbing, cyanosis or edema Extremity Narrative: 1+ pedal pulses, 2+ left radial pulse, compression device right radial artery status postcardiac catheterization Skin skin turgor normal, no jaundice, no petechiae and no mottling Neuro oriented x3, moves all extremities and no focal motor deficits Speech: speech normal Psych affect normal Psych Narrative: Very pleasant, eye contact is good and patient interacts appropriately Weight / BMI Weight Weight: 75.1 kg Body Mass Index (BMI) 30.2 ABG / Lab / Microbiology Data 01/08/25 04:49 01/07/25 12:32 Laboratory: Laboratory Results - last 24 hr 01/07/25 12:32: WBC Cancelled, Corrected WBC Cancelled, RBC Cancelled, Hgb Cancelled, Hct Cancelled, MCV Cancelled, MCH Cancelled, MCHC Cancelled, RDW Std Deviation Cancelled, RDW Coeff of Dede Cancelled, Plt Count Cancelled, MPV Cancelled, Immature Gran % (Auto) Cancelled, Neut % (Auto) Cancelled, Lymph % (Auto) Cancelled, Drew % (Auto) Cancelled, Eos % (Auto) Cancelled, Baso % (Auto)Cancelled, Absolute Neuts (auto) Cancelled, Absolute Lymphs (auto) Cancelled, Total Counted Cancelled, Neutrophils % (Manual) Cancelled, Band Neutrophils % Cancelled, Lymphocytes % (Manual) Cancelled, Monocytes % (Manual) Cancelled, Eosinophils % (Manual) Cancelled, Basophils % (Manual) Cancelled, Metamyelocytes% Cancelled, Myelocytes % Cancelled, Promyelocytes % Cancelled, Blast Cells % Cancelled, Plasma Cell % (Manual) Cancelled, Other Cells % Cancelled, Nucleated RBC % Cancelled, Nucleated RBCs/100 WBC Cancelled, Differential Comment Cancelled, Diff Path Review Cancelled, Hypersegmented Neuts Cancelled, Atypical Lymphocytes Cancelled, Reactive Lymphocytes Cancelled, Smudge Cells Cancelled, Toxic Granulation Cancelled, Toxic Vacuolation Cancelled, Dohle Bodies Cancelled, Isatu Rods Cancelled, Platelet Estimate Cancelled, Plt Morphology Comment Cancelled, RBC Morphology Cancelled 01/07/25 12:32: RBC Morphology Cancelled, Polychromasia Cancelled, HypochromasiaCancelled, Basophilic Stippling Cancelled, Anisocytosis Cancelled, Microcytosis Cancelled, Macrocytosis Cancelled, Spherocytes Cancelled, Sickle Cells Cancelled, Target Cells Cancelled, Tear Drop Cells Cancelled, Ovalocytes Cancelled, Stomatocytes Cancelled, [place] Bodies Cancelled, Johan Cells Cancelled, Bite Cells Cancelled, Crenated Cell Cancelled, Acanthocytes (Spur) Cancelled, Rouleaux Cancelled, Schistocytes Cancelled 01/07/25 14:31: PT 14.2, INR 1.1, APTT 26.9, Troponin T Hi Sens 2 Hr 28 H 01/07/25 16:20: Troponin T Hi Sens 4Hr 27 H 01/07/25 21:57: POC Glucose 194 H 01/08/25 04:49: WBC 10.4, RBC 3.99 L, Hgb 12.2, Hct 37.3, MCV 93.5, MCH 30.6, MCHC 32.7, RDW Std Deviation 51.2 H, RDW Coeff of Dede 15.0 H, Plt Count 282, MPV11.0, Immature Gran % (Auto) 0.500, Neut % (Auto) 68.5, Lymph % (Auto) 13.2 L, Drew % (Auto) 10.8 H, Eos % (Auto) 6.3 H, Baso % (Auto) 0.7, Absolute Neuts (auto) 7.1, Absolute Lymphs (auto) 1.37, Nucleated RBC % 0 01/08/25 06:41: POC Glucose 189 H 01/08/25 11:17: POC Glucose 169 H Radiography Diagnostic Testing: Radiology Impression Chest CTA 01/07/25 13:24 IMPRESSION: No significant abnormality Reading Location: [facility] D/C Instructions Discharge Activity: Return to Normal Activity Lifting Restrictions: Avoid lifting greater than 10 pounds with the right hand for the next 72 hr DC O2, CPAP, BIPAP Needs Home O2 Discharge instructions: No Meaningful Use Info Meaningful Use Meaningful Use Diagnoses (Choose all that apply): None applicable Discharge Plan Admission Admit Date/Time: 01/07/25 15:00 Primary Reason for Your Visit: Chest pain Attending Provider: Rupali Lott Primary Care Provider: Marielos Perla Consulting Providers: Jorge Anderson; Maritza Suresh Instructions Additional Instructions / Restrictions: 1. Please notice the changes in your blood pressure medicine with a decrease inyour losartan from 25 mg to 12.5 mg and an increase in your metoprolol from 50 mg to 75 mg. I did this to make sure your blood pressure does not drop too low and hopefully help with your heart rate. Discharge Orders/Prescriptions Prescriptions: New ranolazine 500 mg Tablet Extended Release 12 Hr 500 mg PO BID Qty: 60 1RF Continued duloxetine 60 mg capsule,delayed release(DR/EC) 60 mg PO DAILY insulin asp prt-insulin aspart [Novolog Mix 70-30 U-100 Insuln] 100 unit/mL (70-30) solution 20 unit subcut QAM Patient Comments: 20-25 cilostazol 100 mg tablet 100 mg PO BID allopurinol 300 mg tablet 300 mg PO BID glimepiride 4 mg tablet 4 mg PO BID Mounjaro 10 mg/0.5 mL pen injector 10 mg subcut .every week Patient Comments: [NO ORIGINAL SIG] nitroglycerin 0.4 mg tablet, sublingual 0.4 mg sublingual Q5-15M PRN (Reason: chest pain) Qty: 25 3RF Rx Instructions: do not exceed 3 doses per episode aspirin 81 MG tablet 81 mg PO DAILY isosorbide mononitrate 60 mg tablet extended release 24 hr 60 mg PO BID omeprazole 20 mg capsule,delayed release(DR/EC) 20 mg PO DAILY oxycodone-acetaminophen 5-325 mg tablet 1 tab PO TID PRN PRN (Reason: pain) rosuvastatin 10 mg tablet See Rx Instructions .ROUTE .COMPLEX Qty: 90 3RF Dose Instruction: TAKE 1 TABLET BY MOUTH EVERY DAY Rx Instructions: TAKE 1 TABLET BY MOUTH EVERY DAY furosemide 40 mg tablet 40 mg PO DAILY Qty: 90 3RF Changed losartan 25 mg tablet 12.5 mg PO DAILY Qty: 15 0RF metoprolol tartrate 50 mg tablet 75 mg PO BID Qty: 180 1RF Referrals / Follow Up: Jorge Anderson MD [Med Staff - Active Staff, Cardiology] - Within 1 Month Marielos Perla DO [Primary Care Provider, Family Practice] - Within 1 Week Disposition Disposition (needs filled in before D/C Order can be placed): Home, Self Care Charges/Coding Visit Charges Inpatient E&M: 35713 Disch Hosp >30min 01/08/25 1420 <Electronically signed by Rupali Lott DO> Cosigner Signature (if applicable): CC: Dr. Jorge Andesron MD; Dr. Rupali Lott, DO; Dr. Marielos Perla, DO~ Signed [facility] Work Phone: 1(620) 729-552709-22-2025 Consult note [facility] Medical Records Department [address] [place] [address] Counseling Note - Pharmacy 01/08/25 7435 MR#: [id number] Acct: [id number] Name: CHRISTY FRANCIS Rep #:[id number] : 1950 74 From: Cecy Cheatham PCP: Dr. Marielos Perla DO Status:ADM BRIAN Y Location: [place] [address] Pharmacy [facility] Counseling Pharmacy Service has performed discharge medication reconciliation and counseling for this patient. 1. RANOLAZINE 500MG PO BID 2. LOSARTAN AND METOPROLOL DOSE CHANGES The patient's discharge medication list was reviewed for discrepancies and discrepancies were resolved. The patient was counseled on the following discharge medications and changes in medications for homegoing were reviewed. The Reason for Use, instructions for use, and potential side effects were reviewed for all new medications. The patient's questions regarding all of their medications were answered. The patient was able to verbally demonstrate an understanding of their dischargemedications. Medications at Discharge Home Medications aspirin 81 mg tablet,delayed release 81 mg PO DAILY heart health 12/15/13 duloxetine 60 mg capsule,delayed release 60 mg PO DAILY mental health 08/20/22 allopurinol 300 mg tablet 300 mg PO BID gout 11/05/23 cilostazol 100 mg tablet 100 mg PO BID anti platelet 11/05/23 oxycodone-acetaminophen 5 mg-325 mg tablet 1 tab PO TID PRN PRN pain 02/19/24 rosuvastatin 10 mg tablet See Rx Instructions .Route .COMPLEX cholesterol #90 TABLETS 04/17/24 furosemide 40 mg tablet 40 mg PO DAILY diuretic #90 TABLETS 06/19/24 glimepiride 4 mg tablet 4 mg PO BID diabetes 11/02/24 insulin aspar prt-insulin aspart 100 unit/mL (70-30) subcutaneous soln (Novolog Mix 70-30 U-100 Insuln) 20 unit subcut QAM diabetes 11/02/24 nitroglycerin 0.4 mg sublingual tablet 0.4 mg sublingual Q5-15M PRN chest pain #25 tabs 11/02/24 tirzepatide 10 mg/0.5 mL subcutaneous pen injector (Mounjaro) 10 mg subcut .every week diabetes 11/02/24 isosorbide mononitrate 60 mg tablet,extended release 24 hr 60 mg PO BID heart 01/07/25 omeprazole 20 mg capsule,delayed release 20 mg PO DAILY reflux 01/07/25 losartan 25 mg tablet 12.5 mg (1/2 x 25 mg) PO DAILY #15 tabs 01/08/25 metoprolol tartrate 50 mg tablet 75 mg (1.5 x 50 mg) PO BID blood pressure #180 tabs 01/08/25 ranolazine 500 mg tablet,extended release,12 hr 500 mg PO BID #60 tabs 01/08/25 01/08/25 1516 Date _ Cecy Benjamin Signature (if applicable): Date CC: ~ Signed [facility]09-22-2025 Progress note Author Jorge Anderson [facility] Note Date/Time January 08, 2025 12:53pm [facility] Medical Records Department [address] [place] [id number] Progress Note - Cardiology 01/08/25 1250 MR#: [id number] Acct: [id number] Name: CHRISTY FRANCIS Rep #:[id number] : 1950 74 From: Jorge Anderson MD PCP: Dr. Marielos Perla, DO Status:ADM BRIAN Location: [place] [address] Subjective Subjective Patient seen and evaluated. Underwent cardiac catheterization today Objective Data Vital Signs: Vital Signs Temp Pulse Resp BP Pulse Ox O2 Del Method 97.4 F L 79 18 105/64 92 Room Air 01/08/25 07:45 01/08/25 07:47 01/08/25 07:45 01/08/25 07:45 01/08/25 07:45 01/08/25 07:56 Oxygen Delivery Method Room Air Weight: 165 lb 9.074 oz Body Mass Index (BMI) 30.2 Intake & Output: Intake and Output for Last 24 Hours 01/06/25 01/07/25 01/08/25 23:59 23:59 23:59 Intake Total 23.51 / 23.51 Balance 23.51 / 23.51 Lab / Micro Data 01/08/25 04:49 01/07/25 12:32 Labs: Laboratory Results - last 24 hr 01/07/25 12:32: WBC 11.9 H 01/07/25 12:32: WBC Cancelled, Corrected WBC Cancelled, RBC 4.22 01/07/25 12:32: RBC Cancelled, Hgb 13.4 01/07/25 12:32: Hgb Cancelled, Hct 40.1 01/07/25 12:32: Hct Cancelled, MCV 95.0 01/07/25 12:32: MCV Cancelled, MCH 31.8 01/07/25 12:32: MCH Cancelled, MCHC 33.4 01/07/25 12:32: MCHC Cancelled, RDW Std Deviation 53.1 H 01/07/25 12:32: RDW Std Deviation Cancelled, RDW Coeff of Dede 15.2 H 01/07/25 12:32: RDW Coeff of Dede Cancelled, Plt Count 312 01/07/25 12:32: Plt Count Cancelled, MPV 11.0 01/07/25 12:32: MPV Cancelled, Immature Gran % (Auto) 0.300 01/07/25 12:32: Immature Gran % (Auto) Cancelled, Neut % (Auto) 70.0 01/07/25 12:32: Neut % (Auto) Cancelled, Lymph % (Auto) 14.8 L 01/07/25 12:32: Lymph % (Auto) Cancelled, Drew % (Auto) 9.1 01/07/25 12:32: Drew % (Auto) Cancelled, Eos % (Auto) 5.2 H 01/07/25 12:32: Eos % (Auto) Cancelled, Baso % (Auto) 0.6 01/07/25 12:32: Baso % (Auto) Cancelled, Absolute Neuts (auto) 8.4 H 01/07/25 12:32: Absolute Neuts (auto) Cancelled, Absolute Lymphs (auto) 1.76 01/07/25 12:32: Absolute Lymphs (auto) Cancelled, Total Counted Cancelled, Neutrophils % (Manual) Cancelled, Band Neutrophils % Cancelled, Lymphocytes % (Manual) Cancelled, Monocytes % (Manual) Cancelled, Eosinophils % (Manual) Cancelled, Basophils % (Manual) Cancelled, Metamyelocytes % Cancelled, Myelocytes % Cancelled, Promyelocytes % Cancelled, Blast Cells % Cancelled, Plasma Cell % (Manual) Cancelled, Other Cells % Cancelled, Nucleated RBC % 0 01/07/25 12:32: Nucleated RBC % Cancelled, Nucleated RBCs/100 WBC Cancelled, Differential Comment Cancelled, Diff Path Review Cancelled, Hypersegmented NeutsCancelled, Atypical Lymphocytes Cancelled, Reactive Lymphocytes Cancelled, Smudge Cells Cancelled, Toxic Granulation Cancelled, Toxic Vacuolation Cancelled, Dohle Bodies Cancelled, Isatu Rods Cancelled, Platelet Estimate Cancelled, Plt Morphology Comment Cancelled, RBC Morphology Cancelled 01/07/25 12:32: RBC Morphology Cancelled, Polychromasia Cancelled, HypochromasiaCancelled, Basophilic Stippling Cancelled, Anisocytosis Cancelled, Microcytosis Cancelled, Macrocytosis Cancelled, Spherocytes Cancelled, Sickle Cells Cancelled, Target Cells Cancelled, Tear Drop Cells Cancelled, Ovalocytes Cancelled, Stomatocytes Cancelled, [place] Bodies Cancelled, Johan Cells Cancelled, Bite Cells Cancelled, Crenated Cell Cancelled, Acanthocytes (Spur) Cancelled, Rouleaux Cancelled, Schistocytes Cancelled, D-Dimer Quant (PE/DVT) 0.83 H*, Sodium 138, Potassium 4.0, Chloride 99, Carbon Dioxide 25.3, Anion Gap 13, BUN 29 H, Creatinine 1.26 H, Estim Creat Clear Calc 37.37 L, Est GFR (MDRD) Non-Af 45 L, BUN/Creatinine Ratio 22.7 H, Glucose 186 H, Calcium 9.5, Troponin THigh Sens 27 H 01/07/25 14:31: PT 14.2, INR 1.1, APTT 26.9, Troponin T Hi Sens 2 Hr 28 H 01/07/25 16:20: Troponin T Hi Sens 4Hr 27 H 01/07/25 21:57: POC Glucose 194 H 01/08/25 04:49: WBC 10.4, RBC 3.99 L, Hgb 12.2, Hct 37.3, MCV 93.5, MCH 30.6, MCHC 32.7, RDW Std Deviation 51.2 H, RDW Coeff of Dede 15.0 H, Plt Count 282, MPV11.0, Immature Gran % (Auto) 0.500, Neut % (Auto) 68.5, Lymph % (Auto) 13.2 L, Drew % (Auto) 10.8 H, Eos % (Auto) 6.3 H, Baso % (Auto) 0.7, Absolute Neuts (auto) 7.1, Absolute Lymphs (auto) 1.37, Nucleated RBC % 0 01/08/25 06:41: POC Glucose 189 H 01/08/25 11:17: POC Glucose 169 H Cardiology Labs/Tests 01/07/25 12:32: WBC 11.9 H 01/07/25 12:32: WBC Cancelled, Corrected WBC Cancelled, RBC 4.22 01/07/25 12:32: RBC Cancelled, Hgb 13.4 01/07/25 12:32: Hgb Cancelled, Hct 40.1 01/07/25 12:32: Hct Cancelled, MCV 95.0 01/07/25 12:32: MCV Cancelled, MCH 31.8 01/07/25 12:32: MCH Cancelled, MCHC 33.4 01/07/25 12:32: MCHC Cancelled, Plt Count 312 01/07/25 12:32: Plt Count Cancelled, MPV 11.0 01/07/25 12:32: MPV Cancelled, Immature Gran % (Auto) 0.300 01/07/25 12:32: Immature Gran % (Auto) Cancelled, Neut % (Auto) 70.0 01/07/25 12:32: Neut % (Auto) Cancelled, Lymph % (Auto) 14.8 L 01/07/25 12:32: Lymph % (Auto) Cancelled, Drew % (Auto) 9.1 01/07/25 12:32: Drew % (Auto) Cancelled, Eos % (Auto) 5.2 H 01/07/25 12:32: Eos % (Auto) Cancelled, Baso % (Auto) 0.6 01/07/25 12:32: Baso % (Auto) Cancelled, Absolute Neuts (auto) 8.4 H 01/07/25 12:32: Absolute Neuts (auto) Cancelled, Total Counted Cancelled, Neutrophils % (Manual) Cancelled, Band Neutrophils % Cancelled, Lymphocytes % (Manual) Cancelled, Monocytes % (Manual) Cancelled, Eosinophils % (Manual) Cancelled, Basophils % (Manual) Cancelled, Metamyelocytes % Cancelled, Myelocytes % Cancelled, Promyelocytes % Cancelled, Blast Cells % Cancelled, Plasma Cell % (Manual) Cancelled, Other Cells % Cancelled, Nucleated RBC % 0 01/07/25 12:32: Nucleated RBC % Cancelled, D-Dimer Quant (PE/DVT) 0.83 H*, Sodium 138, Potassium 4.0, Chloride 99, Carbon Dioxide 25.3, Anion Gap 13, BUN 29 H, Creatinine 1.26 H, Est GFR (MDRD) Non-Af 45 L, BUN/Creatinine Ratio 22.7 H, Glucose 186 H, Calcium 9.5 01/07/25 14:31: PT 14.2, INR 1.1, APTT 26.9 01/08/25 04:49: WBC 10.4, RBC 3.99 L, Hgb 12.2, Hct 37.3, MCV 93.5, MCH 30.6, MCHC 32.7, Plt Count 282, MPV 11.0, Immature Gran % (Auto) 0.500, Neut % (Auto) 68.5, Lymph % (Auto) 13.2 L, Drew % (Auto) 10.8 H, Eos % (Auto) 6.3 H, Baso % (Auto) 0.7, Absolute Neuts (auto) 7.1, Nucleated RBC % 0 Rhythm: EKG: ECHO: Stress Test: Cardiac Cath: PCI: CT Surgery: Holter monitor: EPS: PPM: CXR: Chest CT Scan: Radiography Diagnostic Testing: Radiology Impression Chest X-Ray 01/07/25 12:40 IMPRESSION: NO ACUTE FINDINGS. Reading Location: [facility] Chest CTA 01/07/25 13:24 IMPRESSION: No significant abnormality Reading Location: [facility] Physical Exam Const alert, oriented x3 and no apparent distress General Appearance: cooperative HEENT hearing grossly normal bilaterally Head and Scalp: atraumatic Eyes EOMs intact bilaterally Neck General: normal visual inspection Chest inspection of chest normal and palpation of chest normal Resp normal respiratory effort Auscultation: clear to auscultation bilaterally Cardio regular rate, regular rhythm, S1 normal heart sound and S2 normal heart sound Jugular Venous Distention: JVD GI normal to inspection, nondistended, normoactive bowel sounds Extremity normal capillary refill and no pedal edema Peripheral Pulses: Yes pulses 2+ throughout and femoral pulses present Skin no rashes or lesions noted Neuro oriented x3 and CN's II-XII intact bilaterally Psych Appearance: grossly normal and appropriate Assessment & Plan Assessment/Plan (1) Chest pain: PLAN: She presents with chest discomfort which is suggestive of unstable angina. my recommendation at this time especially with her last stress test within the last year is to proceed with a left heart catheterization. Depending on the findings further recommendations will be made. Addendum: Cardiac catheterization demonstrated the following: GIRALDO to the LAD is patent. Saphenous vein graft to the posterior descending artery is patent. Saphenous vein graft to obtuse marginal branch is occluded previously. Ostial left main coronary artery disease is noted. Left circumflex artery system appears to be stable compared to the previous. My recommendation at this time would be aggressive medical therapy, smoking cessation. No cardiac intervention to be undertaken at this time. (2) History of coronary artery bypass graft x 3: PLAN: She is status post coronary bypass surgery x 3 with a known occlusion of the saphenous vein graft to the obtuse marginal branch. Will reevaluate the others for further therapeutic measures. (3) Essential hypertension: PLAN: She does have a history of hypertension her blood pressure appears to be well-controlled at this time. (4) HLD (hyperlipidemia): QUALIFIERS: Hyperlipidemia type: unspecified Qualified Code(s): E78.5 - Hyperlipidemia, unspecified PLAN: Her lipid profile is excellent at this particular time. (5) PAD (peripheral artery disease): PLAN: She does have peripheral vascular disease but is not experiencing any claudication symptoms at this particular time. Will review her medications. 01/08/25 1253 <Electronically signed by Jorge Anderson MD> Cosigner Signature (if applicable): CC: ~ Signed [facility] Work Phone: 1(985) 532-671409-22-2025 Discharge summary [facility] Medical Records Department [address] [place] [address] Discharge Summary 01/08/25 [id number] MR#: [id number] Acct: [id number] Name: CHRISTY FRANCIS Rep #:[id number] : 1950 74 From: Rupali Lott DO PCP: Dr. Marielos Perla DO Status:ADM BRIAN Location: [place] [address] Providers Date of Admission: 01/07/25 Date of Discharge: 01/08/25 Primary Care Physician: Dr. Marielos Perla DO Consultations 01/07/25 17:56 Consult: Cardiology Routine Consulting Provider: Jorge Anderson Reason for Consult: chest pain EMERGENT Consult: No MD Notified: Yes Date Notified: 01/07/25 Time Notified: 17:56 Method of Notification: Text Reason For Visit: CHEST PAIN Diagnosis Discharge Diagnosis (1) Chest pain: Status: Acute Code(s): R07.9 - Chest pain, unspecified (2) History of coronary artery bypass graft x 3: Status: Chronic Code(s): Z95.1 - Presence of aortocoronary bypass graft (3) Essential hypertension: Status: Chronic Code(s): I10 - Essential (primary) hypertension (4) HLD (hyperlipidemia): Status: Chronic Code(s): E78.5 - Hyperlipidemia, unspecified Qualifiers: Hyperlipidemia type: unspecified Qualified Code(s): E78.5 - Hyperlipidemia, unspecified (5) PAD (peripheral artery disease): Status: Chronic Code(s): I73.9 - Peripheral vascular disease, unspecified Medications at Discharge Home Medications aspirin 81 mg tablet,delayed release 81 mg PO DAILY heart health 12/15/13 duloxetine 60 mg capsule,delayed release 60 mg PO DAILY mental health 08/20/22 allopurinol 300 mg tablet 300 mg PO BID gout 11/05/23 cilostazol 100 mg tablet 100 mg PO BID anti platelet 11/05/23 oxycodone-acetaminophen 5 mg-325 mg tablet 1 tab PO TID PRN PRN pain 02/19/24 rosuvastatin 10 mg tablet See Rx Instructions .Route .COMPLEX cholesterol #90 TABLETS 04/17/24 furosemide 40 mg tablet 40 mg PO DAILY diuretic #90 TABLETS 06/19/24 glimepiride 4 mg tablet 4 mg PO BID 11/02/24 insulin aspar prt-insulin aspart 100 unit/mL (70-30) subcutaneous soln (Novolog Mix 70-30 U-100 Insuln) 20 unit subcut QAM diabetes 11/02/24 nitroglycerin 0.4 mg sublingual tablet 0.4 mg sublingual Q5-15M PRN chest pain #25 tabs 11/02/24 tirzepatide 10 mg/0.5 mL subcutaneous pen injector (Mounjaro) 10 mg subcut .every week 11/02/24 isosorbide mononitrate 60 mg tablet,extended release 24 hr 60 mg PO BID 01/07/25 omeprazole 20 mg capsule,delayed release 20 mg PO DAILY 01/07/25 losartan 25 mg tablet 12.5 mg (1/2 x 25 mg) PO DAILY #15 tabs 01/08/25 metoprolol tartrate 50 mg tablet 75 mg (1.5 x 50 mg) PO BID blood pressure #180 tabs 01/08/25 ranolazine 500 mg tablet,extended release,12 hr 500 mg PO BID #60 tabs 01/08/25 Hospital Course Operations None Procedures Cardiac catheterization, EKG and - (Chest x-ray/CTA chest) Summary of Care Provided Minutes Spent on Discharge: 37 Hospital Course: Mrs. Francis is a 74-year-old white female who presented to the emergency department at [facility] on 01/07/2025 with a chief complaint of chest pain. She has an extensive cardiac history with previous CABG in 2019 at [facility] as well as PVD, HTN/HPL, and DM-2. She complained of indigestion several weeks prior to admission and had chest pain that started around 9 AM on the morning of admission. She denied any concomitant shortness of breath, nausea, diaphoresis, or vomiting. She had been compliant with all of her home medications. Vital signs on presentation showed a temperature of 97.3, heart rate 116, respiratory was 18, blood pressure was 128/98, and pulse ox was 98% onroom air. CBC showed a mild leukocytosis white count 11.9 but an unremarkable differential. Chemistry panel showed normal electrolytes with a BUN of 29 and aserum creatinine of 1.26. A D-dimer was obtained and found to be elevated at 0.83 and her initial troponin was 27. Follow-up troponin was found to be 28 on delta and a 4-hour troponin of 27. EKG was unremarkable for any acute ST-T wavechanges concerning for acute ischemia. Chest x-ray showed no acute findings. CTA of her chest showed no significant abnormalities. She was admitted under observation status with consultation to cardiology. Cardiologyevaluated patient and given her history and symptoms was taken for cardiac catheterization. Cardiaccatheterization revealed GIRALDO to LAD being patent, SVGto the PDA was patent, and SVG to the obtuse marginal branch was occluded which appears to be chronic, ostial left main coronary artery disease was noted as well as left circumflex but both were stable compared to previous. Aggressive medical therapy was recommended and she is to continue home medication with addition of Ranexa for symptoms. Patient did report she is having intermittent tachycardia with heart rates in the 115's at home. Given this we increased her beta-jessica from 50 to 75 mg p.o. twice daily and decreased her losartan from 25 to 12.5 mg p.o. twice daily. I do feel she needs to continue her ARB given her diabetes for mireya al protection and this is why we did not discontinue this medication completely and made adjustments. I have asked her to follow-up with her primary care physician within the next week and with cardiology within the next month. Prescriptions for her increased dose of metoprolol, decrease dose of losartan, and Ranexa were sent to local pharmacy prior to discharge. Patientwas discharged home on 01/08/2025 in stable condition. Discharge diagnoses: Chest pain-resolved Elevated troponin secondary to decreased renal clearance CKD stage IIIb Leukocytosis-resolved Chronic eosinophilia Essential hypertension Hyperlipidemia DM-2 PVD History of gout GERD HFrEF-recovered LV Osteoarthritis Obesity Tobacco abuse Physical Exam Const alert, oriented x3, no apparent distress, no limitations and well nourished; Negative for average body habitus or healthy appearing Constitutional Narrative: Very pleasant, older, white female, sitting up in bed, daughter at bedside, appears comfortable, nontoxic, very pleasant General Appearance: cooperative, comfortable, well kempt and well developed Exam Limitations: no limitations Nutritional Appearance: obese HEENT normocephalic, head/scalp atraumatic, hearing grossly normal bilaterally and moist oral mucous membranes HEENT Narrative: Mallampati 3-4, no thrush Eyes conjunctivae normal Eyes Narrative: No scleral icterus Neck supple Neck Narrative: Neck is short thick, trachea midline Resp normal respiratory effort, no retractions, no use of accessory muscles and clearto auscultation bilaterally Resp Narrative: Diffusely diminished but clear Auscultation: Negative for rales, rhonchi or wheezes Cardio regular rate, regular rhythm, S1 normal heart sound, S2 normal heart sound, no murmurs, no rub and no gallops GI normal to inspection, nondistended, normoactive bowel sounds, soft to palpation and non-tender Extremity no clubbing, cyanosis or edema Extremity Narrative: 1+ pedal pulses, 2+ left radial pulse, compression device right radial artery status postcardiac catheterization Skin skin turgor normal, no jaundice, no petechiae and no mottling Neuro oriented x3, moves all extremities and no focal motor deficits Speech: speech normal Psych affect normal Psych Narrative: Very pleasant, eye contact is good and patient interacts appropriately Weight / BMI Weight Weight: 75.1 kg Body Mass Index (BMI) 30.2 ABG / Lab / Microbiology Data 01/08/25 04:49 01/07/25 12:32 Laboratory: Laboratory Results - last 24 hr 01/07/25 12:32: WBC Cancelled, Corrected WBC Cancelled, RBC Cancelled, Hgb Cancelled, Hct Cancelled, MCV Cancelled, MCH Cancelled, MCHC Cancelled, RDW Std Deviation Cancelled, RDW Coeff of Dede Cancelled, Plt Count Cancelled, MPV Cancelled, Immature Gran % (Auto) Cancelled, Neut % (Auto) Cancelled, Lymph % (Auto) Cancelled, Drew % (Auto) Cancelled, Eos % (Auto) Cancelled, Baso % (Auto)Cancelled, Absolute Neuts (auto) Cancelled, Absolute Lymphs (auto) Cancelled, Total Counted Cancelled, Neutrophils % (Manual) Cancelled, Band Neutrophils % Cancelled, Lymphocytes % (Manual) Cancelled, Monocytes %(Manual) Cancelled, Eosinophils % (Manual) Cancelled, Basophils % (Manual) Cancelled, Metamyelocytes% Cancelled, Myelocytes % Cancelled, Promyelocytes % Cancelled, Blast Cells % Cancelled, Plasma Cell % (Manual) Cancelled, Other Cells % Cancelled, Nucleated RBC % Cancelled, Nucleated RBCs/100 WBC Cancelled, Differential Comment Cancelled, Diff Path Review Cancelled, Hypersegmented Neuts Cancelled, Atypical Lymphocytes Cancelled, Reactive Lymphocytes Cancelled, Smudge Cells Cancelled, Toxic Granulation Cancelled, Toxic Vacuolation Cancelled, Dohle Bodies Cancelled, Isatu Rods Cancelled, Platelet Estimate Cancelled, Plt Morphology Comment Cancelled, RBC Morphology Cancelled 01/07/25 12:32: RBC Morphology Cancelled, Polychromasia Cancelled, HypochromasiaCancelled, Basophilic Stippling Cancelled, Anisocytosis Cancelled, Microcytosis Cancelled, Macrocytosis Cancelled, Spherocytes Cancelled, Sickle Cells Cancelled, Target Cells Cancelled, Tear Drop Cells Cancelled, Ovalocytes Cancelled, Stomatocytes Cancelled, [place] Bodies Cancelled, Johan Cells Cancelled, Bite Cells Cancelled, Crenated Cell Cancelled, Acanthocytes (Spur) Cancelled, Rouleaux Cancelled, Schistocytes Cancelled 01/07/25 14:31: PT 14.2, INR 1.1, APTT 26.9, Troponin T Hi Sens 2 Hr 28 H 01/07/25 16:20: Troponin T Hi Sens 4Hr 27 H 01/07/25 21:57: POC Glucose 194 H 01/08/25 04:49: WBC 10.4, RBC 3.99 L, Hgb 12.2, Hct 37.3, MCV 93.5, MCH 30.6, MCHC 32.7, RDW Std Deviation 51.2 H, RDW Coeff of Dede 15.0 H, Plt Count 282, MPV11.0, Immature Gran % (Auto) 0.500, Neut % (Auto) 68.5, Lymph % (Auto) 13.2 L, Drew % (Auto) 10.8 H, Eos % (Auto) 6.3 H, Baso % (Auto) 0.7, Absolute Neuts (auto) 7.1, Absolute Lymphs (auto) 1.37, Nucleated RBC % 0 01/08/25 06:41: POC Glucose 189 H 01/08/25 11:17: POC Glucose 169 H Radiography Diagnostic Testing: Radiology Impression Chest CTA 01/07/25 13:24 IMPRESSION: No significant abnormality Reading Location: [facility] D/C Instructions Discharge Activity: Return to Normal Activity Lifting Restrictions: Avoid lifting greater than 10 pounds with the right hand for the next 72 hr DC O2, CPAP, BIPAP Needs Home O2 Discharge instructions: No Meaningful Use Info Meaningful Use Meaningful Use Diagnoses (Choose all that apply): None applicable Discharge Plan Admission Admit Date/Time: 01/07/25 15:00 Primary Reason for Your Visit: Chest pain Attending Provider: Rupali Lott Primary Care Provider: Marielos Perla Consulting Providers: Jorge Anderson; Maritza Suresh Instructions Additional Instructions / Restrictions: 1. Please notice the changes in your blood pressure medicine with a decrease inyour losartan from 25 mg to 12.5 mg and an increase in your metoprolol from 50 mg to 75 mg. I did this to make sure yourblood pressure does not drop too low and hopefully help with your heart rate. Discharge Orders/Prescriptions Prescriptions: New ranolazine 500 mg Tablet Extended Release 12 Hr 500 mg PO BID Qty: 60 1RF Continued duloxetine 60 mg capsule,delayed release(DR/EC) 60 mg PO DAILY insulin asp prt-insulin aspart [Novolog Mix 70-30 U-100 Insuln] 100 unit/mL (70- 30) solution 20 unit subcut QAM Patient Comments: 20-25 cilostazol 100 mg tablet 100 mg PO BID allopurinol 300 mg tablet 300 mg PO BID glimepiride 4 mg tablet 4 mg PO BID Mounjaro 10 mg/0.5 mL pen injector 10 mg subcut .every week Patient Comments: [NO ORIGINAL SIG] nitroglycerin 0.4 mg tablet, sublingual 0.4 mg sublingual Q5-15M PRN (Reason: chest pain) Qty: 25 3RF Rx Instructions: do not exceed 3 doses per episode aspirin 81 MG tablet 81 mg PO DAILY isosorbide mononitrate 60 mg tablet extended release 24 hr 60 mg PO BID omeprazole 20 mg capsule,delayed release(DR/EC) 20 mg PO DAILY oxycodone-acetaminophen 5-325 mg tablet 1 tab PO TID PRN PRN (Reason: pain) rosuvastatin 10 mg tablet See Rx Instructions .ROUTE .COMPLEX Qty: 90 3RF Dose Instruction: TAKE 1 TABLET BY MOUTH EVERY DAY Rx Instructions: TAKE 1 TABLET BY MOUTH EVERY DAY furosemide 40 mg tablet 40 mg PO DAILY Qty: 90 3RF Changed losartan 25 mg tablet 12.5 mg PO DAILY Qty: 15 0RF metoprolol tartrate 50 mg tablet 75 mg PO BID Qty: 180 1RF Referrals / Follow Up: Jorge Anderson MD [Med Staff - Active Staff, Cardiology] - Within 1 Month Marielos Perla DO [Primary Care Provider, Family Practice] - Within 1 Week Disposition Disposition (needs filled in before D/C Order can be placed): Home, Self Care Charges/Coding Visit Charges Inpatient E&M: 61335 Disch Hosp >30min 01/08/25 1420 Cosigner Signature (if applicable): CC: Dr. Jorge Anderson MD; Dr. Rupali Lott DO; Dr. Marielos Perla DO~ Signed [facility]09-22-2025 Hospital Discharge instructionsAdditional Instructions 1. Please notice the changes in your blood pressure medicine with a decrease in your losartan from 25 mg to 12.5 mg and an increase in your metoprolol from 50 mg to 75 mg. I did this to make sure your blood pressure does not drop too low and hopefully help with your heart rate. Date of Discharge: 01/08/25[facility] Work Phone: 1(585) 239-223909-22-2025 [facility] Medical Records Department [address] [place] [id number] Discharge Summary 01/08/25 1357 MR#: [id number] Acct: [id number] Name: CHRISTY FRANCIS Rep #: [id number] : 1950 74 From: Rupali Lott DO PCP: Dr. Marielos Perla DO Status:ADM BRIAN Location: [place] [address] Providers Date of Admission: 01/07/25 Date of Discharge: 01/08/25 Primary Care Physician: Dr. Marielos Perla DO Consultations 01/07/25 17:56 Consult: Cardiology Routine Consulting Provider: Jorge Anderson Reason for Consult: chest pain EMERGENT Consult: No MD Notified: Yes Date Notified: 01/07/25 Time Notified: 17:56 Method of Notification: Text Reason For Visit: CHEST PAIN Diagnosis Discharge Diagnosis (1) Chest pain: Status: Acute Code(s): R07.9 - Chest pain, unspecified (2) History of coronary artery bypass graft x 3: Status: Chronic Code(s): Z95.1 - Presence of aortocoronary bypass graft (3) Essential hypertension: Status: Chronic Code(s): I10 - Essential (primary) hypertension (4) HLD (hyperlipidemia): Status: Chronic Code(s): E78.5 - Hyperlipidemia, unspecified Qualifiers: Hyperlipidemia type: unspecified Qualified Code(s): E78.5 - Hyperlipidemia, unspecified (5) PAD (peripheral artery disease): Status: Chronic Code(s): I73.9 - Peripheral vascular disease, unspecified Medications at Discharge Home Medications aspirin 81 mg tablet,delayed release 81 mg PO DAILY heart health 12/15/13 duloxetine 60 mg capsule,delayed release 60 mg PO DAILY mental health 08/20/22 allopurinol 300 mg tablet 300 mg PO BID gout 11/05/23 cilostazol 100 mg tablet 100 mg PO BID anti platelet 11/05/23 oxycodone-acetaminophen 5 mg-325 mg tablet 1 tab PO TID PRN PRN pain 02/19/24 rosuvastatin 10 mg tablet See Rx Instructions .Route .COMPLEX cholesterol #90 TABLETS 04/17/24 furosemide 40 mg tablet 40 mg PO DAILY diuretic #90 TABLETS 06/19/24 glimepiride 4 mg tablet 4 mg PO BID 11/02/24 insulin aspar prt-insulin aspart 100 unit/mL (70-30) subcutaneous soln (Novolog Mix 70-30 U-100 Insuln) 20 unit subcut QAM diabetes 11/02/24 nitroglycerin 0.4 mg sublingual tablet 0.4 mg sublingual Q5-15M PRN chest pain #25 tabs 11/02/24 tirzepatide 10 mg/0.5 mL subcutaneous pen injector (Mounjaro) 10 mg subcut .every week 11/02/24 isosorbide mononitrate 60 mg tablet,extended release 24 hr 60 mg PO BID 01/07/25 omeprazole 20 mg capsule,delayed release 20 mg PO DAILY 01/07/25 losartan 25 mg tablet 12.5 mg (1/2 x 25 mg) PO DAILY #15 tabs 01/08/25 metoprolol tartrate 50 mg tablet 75 mg (1.5 x 50 mg) PO BID blood pressure #180 tabs 01/08/25 ranolazine 500 mg tablet,extended release,12 hr 500 mg PO BID #60 tabs 01/08/25 Hospital Course Operations None Procedures Cardiac catheterization, EKG and - (Chest x-ray/CTA chest) Summary of Care Provided Minutes Spent on Discharge: 37 Hospital Course: Mrs. Francis is a 74-year-old white female who presented to the emergency department at [facility] on 01/07/2025 with a chief complaint of chest pain. She has an extensive cardiac history with previous CABG in 2019 at [facility] as well as PVD, HTN/HPL, and DM-2. She complained of indigestion several weeks prior to admission and had chest pain that started around 9 AM on the morning of admission. She denied any concomitant shortness of breath, nausea, diaphoresis, or vomiting. She had been compliant with all of her home medications. Vital signs on presentation showed a temperature of 97.3, heart rate 116, respiratory was 18, blood pressure was 128/98, and pulse ox was 98% on room air. CBC showed a mild leukocytosis white count 11.9 but an unremarkable differential. Chemistry panel showed normal electrolytes with a BUN of 29 and a serum creatinine of 1.26. A D-dimer was obtained and found to be elevated at 0.83 and her initial troponin was 27. Follow-up troponin was found to be 28 on delta and a 4-hour troponin of 27. EKG was unremarkable for any acute ST-T wave changes concerning for acute ischemia. Chest x-ray showed no acute findings. CTA of her chest showed no significant abnormalities. She was admitted under observation status with consultation to cardiology. Cardiology evaluated patient and given her history and symptoms was taken for cardiac catheterization. Cardiac catheterization revealed GIRALDO to LAD being patent, SVG to the PDA was patent, and SVG to the obtuse marginal branch was occluded which appears to be chronic, ostial left main coronary artery disease was noted as well as left circumflex but both were stable compared to previous. Aggressive medical therapy was recommended and she is to continue home medication with addition of Ranexa for symptoms. Patient did report she is having intermittent tachycardia with heart rates in the 115's at home. Given this we increased her beta- jessica from 50 to 75 mg p.o. twice daily and (more content not included)... [facility]09-22-2025 Progress note [facility] Medical Records Department [address] [place] [address] Progress Note - Cardiology 01/08/25 1250 MR#: [id number] Acct: [id number] Name: CHRISTY FRANCIS Rep #:[id number] : 1950 74 From: Jorge Anderson MD PCP: Dr. Marielos Perla, DO Status:ADM BRIAN Location: [place] [address] Subjective Subjective Patient seen and evaluated. Underwent cardiac catheterization today Objective Data Vital Signs: Vital Signs Temp Pulse Resp BP Pulse Ox O2 Del Method 97.4 F L 79 18 105/64 92 Room Air 01/08/25 07:45 01/08/25 07:47 01/08/25 07:45 01/08/25 07:45 01/08/25 07:45 01/08/25 07:56 Oxygen Delivery Method Room Air Weight: 165 lb 9.074 oz Body Mass Index (BMI) 30.2 Intake & Output: Intake and Output for Last 24 Hours 01/06/25 01/07/25 01/08/25 23:59 23:59 23:59 Intake Total 23.51 / 23.51 Balance 23.51 / 23.51 Lab / Micro Data 01/08/25 04:49 01/07/25 12:32 Labs: Laboratory Results - last 24 hr 01/07/25 12:32: WBC 11.9 H 01/07/25 12:32: WBC Cancelled, Corrected WBC Cancelled, RBC 4.22 01/07/25 12:32: RBC Cancelled, Hgb 13.4 01/07/25 12:32: Hgb Cancelled, Hct 40.1 01/07/25 12:32: Hct Cancelled, MCV 95.0 01/07/25 12:32: MCV Cancelled, MCH 31.8 01/07/25 12:32: MCH Cancelled, MCHC 33.4 01/07/25 12:32: MCHC Cancelled, RDW Std Deviation 53.1 H 01/07/25 12:32: RDW Std Deviation Cancelled, RDW Coeff of Dede 15.2 H 01/07/25 12:32: RDW Coeff of Dede Cancelled, Plt Count 312 01/07/25 12:32: Plt Count Cancelled, MPV 11.0 01/07/25 12:32: MPV Cancelled, Immature Gran % (Auto) 0.300 01/07/25 12:32: Immature Gran % (Auto) Cancelled, Neut % (Auto) 70.0 01/07/25 12:32: Neut % (Auto) Cancelled, Lymph % (Auto) 14.8 L 01/07/25 12:32: Lymph % (Auto) Cancelled, Drew % (Auto) 9.1 01/07/25 12:32: Drew % (Auto) Cancelled, Eos % (Auto) 5.2 H 01/07/25 12:32: Eos % (Auto) Cancelled, Baso % (Auto) 0.6 01/07/25 12:32: Baso % (Auto) Cancelled, Absolute Neuts (auto) 8.4 H 01/07/25 12:32: Absolute Neuts (auto) Cancelled, Absolute Lymphs (auto) 1.76 01/07/25 12:32: Absolute Lymphs (auto) Cancelled, Total Counted Cancelled, Neutrophils % (Manual) Cancelled, Band Neutrophils % Cancelled, Lymphocytes % (Manual) Cancelled, Monocytes % (Manual) Cancelled, Eosinophils % (Manual) Cancelled, Basophils % (Manual) Cancelled, Metamyelocytes % Cancelled, M yelocytes % Cancelled, Promyelocytes % Cancelled, Blast Cells % Cancelled, Plasma Cell % (Manual) Cancelled, Other Cells % Cancelled, Nucleated RBC % 0 01/07/25 12:32: Nucleated RBC % Cancelled, Nucleated RBCs/100 WBC Cancelled, Differential Comment Cancelled, Diff Path Review Cancelled, Hypersegmented NeutsCancelled, Atypical Lymphocytes Cancelled,Reactive Lymphocytes Cancelled, Smudge Cells Cancelled, Toxic Granulation Cancelled, Toxic Vacuolation Cancelled, Dohle Bodies Cancelled, Isatu Rods Cancelled, Platelet Estimate Cancelled, Plt Morphology Comment Cancelled, RBC Morphology Cancelled 01/07/25 12:32: RBC Morphology Cancelled, Polychromasia Cancelled, HypochromasiaCancelled, Basophilic Stippling Cancelled, Anisocytosis Cancelled, Microcytosis Cancelled, Macrocytosis Cancelled, Spherocytes Cancelled, Sickle Cells Cancelled, Target Cells Cancelled, Tear Drop Cells Cancelled, Ovalocytes Cancelled, Stomatocytes Cancelled, [place] Bodies Cancelled, Johan Cells Cancelled, Bite Cells Cancelled, Crenated Cell Cancelled, Acanthocytes (Spur) Cancelled, Rouleaux Cancelled, Schistocytes Cancelled, D-Dimer Quant (PE/DVT) 0.83 H*, Sodium 138, Potassium 4.0, Chloride 99, Carbon Dioxide 25.3, Anion Gap 13, BUN 29 H, Creatinine 1.26 H, Estim Creat Clear Calc 37.37 L, Est GFR (MDRD) Non-Af 45 L, BUN/Creatinine Ratio 22.7 H, Glucose 186 H, Calcium 9.5, Troponin THigh Sens 27 H 01/07/25 14:31: PT 14.2, INR 1.1, APTT 26.9, Troponin T Hi Sens 2 Hr 28 H 01/07/25 16:20: Troponin T Hi Sens 4Hr 27 H 01/07/25 21:57: POC Glucose 194 H 01/08/25 04:49: WBC 10.4, RBC 3.99 L, Hgb 12.2, Hct 37.3, MCV 93.5, MCH 30.6, MCHC 32.7, RDW Std Deviation 51.2 H, RDW Coeff of Dede 15.0 H, Plt Count 282, MPV11.0, Immature Gran % (Auto) 0.500, Neut % (Auto) 68.5, Lymph % (Auto) 13.2 L, Drew % (Auto) 10.8 H, Eos % (Auto) 6.3 H, Baso % (Auto) 0.7, Absolute Neuts (auto) 7.1, Absolute Lymphs (auto) 1.37, Nucleated RBC % 0 01/08/25 06:41: POC Glucose 189 H 01/08/25 11:17: POC Glucose 169 H Cardiology Labs/Tests 01/07/25 12:32: WBC 11.9 H 01/07/25 12:32: WBC Cancelled, Corrected WBC Cancelled, RBC 4.22 01/07/25 12:32: RBC Cancelled, Hgb 13.4 01/07/25 12:32: Hgb Cancelled, Hct 40.1 01/07/25 12:32: Hct Cancelled, MCV 95.0 01/07/25 12:32: MCV Cancelled, MCH 31.8 01/07/25 12:32: MCH Cancelled, MCHC 33.4 01/07/25 12:32: MCHC Cancelled, Plt Count 312 01/07/25 12:32: Plt Count Cancelled, MPV 11.0 01/07/25 12:32: MPV Cancelled, Immature Gran % (Auto) 0.300 01/07/25 12:32: Immature Gran % (Auto) Cancelled, Neut % (Auto) 70.0 01/07/25 12:32: Neut % (Auto) Cancelled, Lymph % (Auto) 14.8 L 01/07/25 12:32: Lymph % (Auto) Cancelled, Drew % (Auto) 9.1 01/07/25 12:32: Drew % (Auto) Cancelled, Eos % (Auto) 5.2 H 01/07/25 12:32: Eos % (Auto) Cancelled, Baso % (Auto) 0.6 01/07/25 12:32: Baso % (Auto) Cancelled, Absolute Neuts (auto) 8.4 H 01/07/25 12:32: Absolute Neuts (auto) Cancelled, Total Counted Cancelled, Neutrophils % (Manual) Cancelled, Band Neutrophils % Cancelled, Lymphocytes % (Manual) Cancelled, Monocytes % (Manual) Cancelled, Eosinophils % (Manual) Cancelled, Basophils % (Manual) Cancelled, Metamyelocytes % Cancelled, My elocytes % Cancelled, Promyelocytes % Cancelled, Blast Cells % Cancelled, Plasma Cell % (Manual) Cancelled, Other Cells % Cancelled, Nucleated RBC % 0 01/07/25 12:32: Nucleated RBC % Cancelled, D-Dimer Quant (PE/DVT) 0.83 H*, Sodium 138, Potassium 4.0, Chloride 99, Carbon Dioxide 25.3, Anion Gap 13, BUN 29 H, Creatinine 1.26 H, Est GFR (MDRD) Non-Af 45 L, BUN/Creatinine Ratio 22.7 H, Glucose 186 H, Calcium 9.5 01/07/25 14:31: PT 14.2, INR 1.1, APTT 26.9 01/08/25 04:49: WBC 10.4, RBC 3.99 L, Hgb 12.2, Hct 37.3, MCV 93.5, MCH 30.6, MCHC 32.7, Plt Count 282, MPV 11.0, Immature Gran % (Auto) 0.500, Neut % (Auto) 68.5, Lymph % (Auto) 13.2 L, Drew % (Auto) 10.8 H, Eos % (Auto) 6.3 H, Baso % (Auto) 0.7, Absolute Neuts (auto) 7.1, Nucleated RBC % 0 Rhythm: EKG: ECHO: Stress Test: Cardiac Cath: PCI: CT Surgery: Holter monitor: EPS: PPM: CXR: Chest CT Scan: Radiography Diagnostic Testing: Radiology Impression Chest X-Ray 01/07/25 12:40 IMPRESSION: NO ACUTE FINDINGS. Reading Location: [facility] Chest CTA 01/07/25 13:24 IMPRESSION: No significant abnormality Reading Location: [facility] Physical Exam Const alert, oriented x3 and no apparent distress General Appearance: cooperative HEENT hearing grossly normal bilaterally Head and Scalp: atraumatic Eyes EOMs intact bilaterally Neck General: normal visual inspection Chest inspection of chest normal and palpation of chest normal Resp normal respiratory effort Auscultation: clear to auscultation bilaterally Cardio regular rate, regular rhythm, S1 normal heart sound and S2 normal heart sound Jugular Venous Distention: JVD GI normal to inspection, nondistended, normoactive bowel sounds Extremity normal capillary refill and no pedal edema Peripheral Pulses: Yes pulses 2+ throughout and femoral pulses present Skin no rashes or lesions noted Neuro oriented x3 and CN's II-XII intact bilaterally Psych Appearance: grossly normal and appropriate Assessment & Plan Assessment/Plan (1) Chest pain: PLAN: She presents with chest discomfort which is suggestive of unstable angina. my recommendation at this time especially with her last stress test within the last year is to proceed with a left heart catheterization. Depending on the findings further recommendations will be made. Addendum: Cardiac catheterization demonstrated the following: GIRALDO to the LAD is patent. Saphenous vein graft to the posterior descending artery is patent. Saphenous vein graft to obtuse marginal branch is occluded previously. Ostial left main coronary artery disease is noted. Left circumflex artery system appears to be stable compared to the previous. My recommendation at this time would be aggressive medical therapy, smoking cessation. No cardiac intervention to be undertaken at this time. (2) History of coronary artery bypass graft x 3: PLAN: She is status post coronary bypass surgery x 3 with a known occlusion of the saphenous vein graft to the obtuse marginal branch. Will reevaluate the others for further therapeutic measures. (3) Essential hypertension: PLAN: She does have a history of hypertension her blood pressure appears to be well-controlled at this time. (4) HLD (hyperlipidemia): QUALIFIERS: Hyperlipidemia type: unspecified Qualified Code(s): E78.5 - Hyperlipidemia, unspecified PLAN: Her lipid profile is excellent at this particular time. (5) PAD (peripheral artery disease): PLAN: She does have peripheral vascular disease but is not experiencing any claudication symptoms at this particular time. Will review her medications. 01/08/25 1253 Cosigner Signature (if applicable): CC: ~ Signed [facility]09-22-2025 Consult note Author Jorge Anderson [facility] Note Date/Time January 08, 2025 4:48pm [facility] Medical Records Department [address] [place] [id number] Consultation - Cardiology 01/08/25 0652 MR#: [id number] Acct: [id number] Name: CHRISTY FRANCIS Rep #:[id number] : 1950 74 From: Jorge Anderson MD PCP: Dr. Marielos Perla, DO Status:DIS BRIAN Location: [place] [address]- Assessment & Plan Assessment/Plan (1) Chest pain: PLAN: She presents with chest discomfort which is suggestive of unstable angina. My recommendation at this time especially with her last stress test within the last year is to proceed with a left heart catheterization. Depending on the findings further recommendations will be made. (2) History of coronary artery bypass graft x 3: PLAN: She is status post coronary bypass surgery x 3 with a known occlusion of the saphenous vein graft to the obtuse marginal branch. Will reevaluate the others for further therapeutic measures. (3) Essential hypertension: PLAN: She does have a history of hypertension her blood pressure appears to be well-controlled at this time. (4) HLD (hyperlipidemia): QUALIFIERS: Hyperlipidemia type: unspecified Qualified Code(s): E78.5 - Hyperlipidemia, unspecified PLAN: Her lipid profile is excellent at this particular time. (5) PAD (peripheral artery disease): PLAN: She does have peripheral vascular disease but is not experiencing any claudication symptoms at this particular time. Will review her medications. HPI Consult Data Date of Consult: 01/08/25 HPI Narrative HPI Narrative: CHRISTY FRANCIS, is a 74 F who presents to the emergency room with chest discomfort. She says that this has been described as tightness across her chest. She had experienced similar symptoms when she was seen in our office. However she tellsme that the above symptomatology appears to be getting worse and more frequent and she is having some of it at rest. In the emergency room her EKG demonstrated sinus rhythm with no acute changes. Cardiac enzymes were minimallyelevated. She has a history of coronary artery bypass surgery with a GIRALDO to the LAD saphenous vein graft to obtuse marginal branch, and saphenous vein graftto the right coronary artery. In addition she has hyperlipidemia hypertension peripheral vascular disease. She did undergo a stress test in February 2024 which demonstrated no evidence of ischemia. She has lost some weight on her GLP-1 she unfortunately continues to use some tobacco products albeit less than she was doing before. Her last catheterization in 2021 demonstrated the patent GIRALDO to the LAD and the saphenous vein graft to the posterior descending artery. The graft to the obtuse marginal branch was occluded. [facility] Medical History Severe left ventricular systolic dysfunction (LVSD) Palpitations Right rotator cuff tear Trigger finger of both hands Carpal tunnel syndrome on both sides FHx: cholecystectomy History of left heart catheterization (LHC) (~06/03/21) Essential hypertension Mechanical loosening of prosthetic knee Atherosclerosis of [place] coronary artery of [place] heart without angina pectoris PAD (peripheral artery disease) HLD (hyperlipidemia) Type II diabetes mellitus Home Medications ?Medication ?Instructions ?Recorded ?Last Taken ?Type aspirin 81 mg tablet,delayed 81 mg PO DAILY heart heal th 12/15/13 01/07/25 History release duloxetine 60 mg capsule,delayed 60 mg PO DAILY mental health 08/20/22 01/07/25 History release allopurinol 300 mg tablet 300 mg PO BID gout 11/05/23 01/07/25 History cilostazol 100 mg tablet 100 mg PO BID anti platelet 11/05/23 01/07/25 History oxycodone-acetaminophen 5 mg-325 1 tab PO TID PRN PRN pain 02/19/24 02/03/24 History mg tablet rosuvastatin 10 mg tablet See Rx Instructions .Route 1 01/06/25 Rx .COMPLEX cholesterol #90 TABLETS furosemide 40 mg tablet 40 mg PO DAILY diuretic #90 TABLETS 06/19/24 01/07/25 Rx glimepiride 4 mg tablet 4 mg PO BID 11/02/24 5 History insulin aspar prt-insulin aspart 20 unit subcut QAM di abetes 11/02/24 01/07/25 History 100 unit/mL (70-30) subcutaneous soln (Novolog Mix 70-30 U-100 Insuln) nitroglycerin 0.4 mg sublingual 0.4 mg sublingual Q5-1 5M PRN chest 11/02/24 Unknown Rx tablet pain #25 tabs tirzepatide 10 mg/0.5 mL 10 mg subcut .every week Unknown History subcutaneous pen injector (May) metoprolol tartrate 50 mg tablet 50 mg PO BID blood pr essure #180 12/11/24 01/07/25 Rx tabs isosorbide mononitrate 60 mg 60 mg PO BID 01/07/25 History tablet,extended release 24 hr losartan 25 mg tablet 25 mg PO DAILY 01/07/2512/19 History omeprazole 20 mg capsule,delayed 20 mg PO DAILY 01/07/25 History release Allergy/AdvReac Type Severity Reaction Status Date / Time cefazolin Allergy Shortness Verified 01/07/25 12:23 of breath codeine Allergy Shortness Verified 01/07/25 12:23 of breath morphine Allergy Other Verified 01/07/25 12:23 naloxone (Naloxone) Allergy Shortness Verified 01/07/25 12:23 of breath pentazocine Allergy Shortness Verified 01/07/25 12:23 of breath pentazocine lactate (From Allergy Shortness Verified 01/07/25 12:23 Flakita) of breath atorvastatin AdvReac Severe Severe Verified 01/07/25 12:23 myalgias acetaminophen (From Tylenol) AdvReac Nausea Verified 01/07/25 12:23 Family History Mother Heart disease Surgical History History of cholecystectomy History of coronary artery bypass graft x 3 (~02/27/19) History of prosthetic unicompartmental arthroplasty of left knee Social History Smoking Status: Light Smoker (<10/day) alcohol intake: current alcohol intake frequency: holidays/special occasions only substance use type: does not use caffeine: Yes Type: coffee Number of servings: 3 ROS Constitutional Constitutional: Reports fatigue, malaise and weakness; Denies anorexia, chills or fever(s) Eyes Eyes: Denies change in vision ENT HEENT: Denies dysphagia or headache(s) Cardiovascular Cardiovascular: Reports chest pain; Denies claudication, dyspnea on exertion, edema, lightheadedness, orthopnea, palpitations, paroxysmal nocturnal dyspnea, rapid heart rate or syncope Respiratory/Chest Respiratory/Chest: Denies cough, excessive phlegm production, productive cough, shortness of breath at rest or shortness of breath with exertion Gastrointestinal Gastrointestinal: Denies abdominal pain, diarrhea, nausea or vomiting Genitourinary Genitourinary: Denies difficulty urinating Neurologic Neurologic: Denies confusion, dizziness, focal weakness, headache(s), numbness, seizures or syncope Psychiatric Psychiatric: Denies anxiety or depression Physical Exam Const alert, oriented x3 and no apparent distress General Appearance: cooperative HEENT hearing grossly normal bilaterally Head and Scalp: atraumatic Eyes EOMs intact bilaterally Neck General: normal visual inspection Chest inspection of chest normal and palpation of chest normal Resp normal respiratory effort Auscultation: clear to auscultation bilaterally Cardio regular rate, regular rhythm, S1 normal heart sound and S2 normal heart sound Jugular Venous Distention: JVD GI normal to inspection, nondistended, normoactive bowel sounds Extremity normal capillary refill and no pedal edema Peripheral Pulses: Yes pulses 2+ throughout and femoral pulses present Skin no rashes or lesions noted Neuro oriented x3 and CN's II-XII intact bilaterally Psych Appearance: grossly normal and appropriate Objective Data Vital Signs: Vital Signs Temp Pulse Resp BP Pulse Ox O2 Del Method 98.3 F 90 16 143/69 H 94 Room Air 01/08/25 03:50 01/08/25 06:03 01/08/25 03:50 01/08/25 06:03 01/08/25 03:50 01/08/25 03:50 Oxygen Delivery Method Room Air Weight: 165 lb 9.074 oz Body Mass Index (BMI) 30.2 Intake & Output: Intake and Output for Last 24 Hours 01/06/25 01/07/25 01/08/25 23:59 23:59 23:59 Intake Total 23.51 / 23.51 Balance 23.51 / 23.51 Lab / Micro Data 01/08/25 04:49 01/07/25 12:32 Labs: Laboratory Results - last 24 hr 01/07/25 12:32: WBC 11.9 H 01/07/25 12:32: WBC Cancelled, Corrected WBC Cancelled, RBC 4.22 01/07/25 12:32: RBC Cancelled, Hgb 13.4 01/07/25 12:32: Hgb Cancelled, Hct 40.1 01/07/25 12:32: Hct Cancelled, MCV 95.0 01/07/25 12:32: MCV Cancelled, MCH 31.8 01/07/25 12:32: MCH Cancelled, MCHC 33.4 01/07/25 12:32: MCHC Cancelled, RDW Std Deviation 53.1 H 01/07/25 12:32: RDW Std Deviation Cancelled, RDW Coeff of Dede 15.2 H 01/07/25 12:32: RDW Coeff of Dede Cancelled, Plt Count 312 01/07/25 12:32: Plt Count Cancelled, MPV 11.0 01/07/25 12:32: MPV Cancelled, Immature Gran % (Auto) 0.300 01/07/25 12:32: Immature Gran % (Auto) Cancelled, Neut % (Auto) 70.0 01/07/25 12:32: Neut % (Auto) Cancelled, Lymph % (Auto) 14.8 L 01/07/25 12:32: Lymph % (Auto) Cancelled, Drew % (Auto) 9.1 01/07/25 12:32: Drew % (Auto) Cancelled, Eos % (Auto) 5.2 H 01/07/25 12:32: Eos % (Auto) Cancelled, Baso % (Auto) 0.6 01/07/25 12:32: Baso % (Auto) Cancelled, Absolute Neuts (auto) 8.4 H 01/07/25 12:32: Absolute Neuts (auto) Cancelled, Absolute Lymphs (auto) 1.76 01/07/25 12:32: Absolute Lymphs (auto) Cancelled, Total Counted Cancelled, Neutrophils % (Manual) Cancelled, Band Neutrophils % Cancelled, Lymphocytes % (Manual) Cancelled, Monocytes % (Manual) Cancelled, Eosinophils % (Manual) Cancelled, Basophils % (Manual) Cancelled, Metamyelocytes % Cancelled, Myelocytes % Cancelled, Promyelocytes % Cancelled, Blast Cells % Cancelled, Plasma Cell % (Manual) Cancelled, Other Cells % Cancelled, Nucleated RBC % 0 01/07/25 12:32: Nucleated RBC % Cancelled, Nucleated RBCs/100 WBC Cancelled, Differential Comment Cancelled, Diff Path Review Cancelled, Hypersegmented NeutsCancelled, Atypical Lymphocytes Cancelled, Reactive Lymphocytes Cancelled, Smudge Cells Cancelled, Toxic Granulation Cancelled, Toxic Vacuolation Cancelled, Dohle Bodies Cancelled, Isatu Rods Cancelled, Platelet Estimate Cancelled, Plt Morphology Comment Cancelled, RBC Morphology Cancelled 01/07/25 12:32: RBC Morphology Cancelled, Polychromasia Cancelled, HypochromasiaCancelled, Basophilic Stippling Cancelled, Anisocytosis Cancelled, Microcytosis Cancelled, Macrocytosis Cancelled, Spherocytes Cancelled, Sickle Cells Cancelled, Target Cells Cancelled, Tear Drop Cells Cancelled, Ovalocytes Cancelled, Stomatocytes Cancelled, [place] Bodies Cancelled, Johan Cells Cancelled, Bite Cells Cancelled, Crenated Cell Cancelled, Acanthocytes (Spur) Cancelled, Rouleaux Cancelled, Schistocytes Cancelled, D-Dimer Quant (PE/DVT) 0.83 H*, Sodium 138, Potassium 4.0, Chloride 99, Carbon Dioxide 25.3, Anion Gap 13, BUN 29 H, Creatinine 1.26 H, Estim Creat Clear Calc 37.37 L, Est GFR (MDRD) Non-Af 45 L, BUN/Creatinine Ratio 22.7 H, Glucose 186 H, Calcium 9.5, Troponin THigh Sens 27 H 01/07/25 14:31: PT 14.2, INR 1.1, APTT 26.9, Troponin T Hi Sens 2 Hr 28 H 01/07/25 16:20: Troponin T Hi Sens 4Hr 27 H 01/07/25 21:57: POC Glucose 194 H 01/08/25 04:49: WBC 10.4, RBC 3.99 L, Hgb 12.2, Hct 37.3, MCV 93.5, MCH 30.6, MCHC 32.7, RDW Std Deviation 51.2 H, RDW Coeff of Dede 15.0 H, Plt Count 282, MPV11.0, Immature Gran % (Auto) 0.500, Neut % (Auto) 68.5, Lymph % (Auto) 13.2 L, Drew % (Auto) 10.8 H, Eos % (Auto) 6.3 H, Baso % (Auto) 0.7, Absolute Neuts (auto) 7.1, Absolute Lymphs (auto) 1.37, Nucleated RBC % 0 Cardiology Labs/Tests 01/07/25 12:32: WBC 11.9 H 01/07/25 12:32: WBC Cancelled, Corrected WBC Cancelled, RBC 4.22 01/07/25 12:32: RBC Cancelled, Hgb 13.4 01/07/25 12:32: Hgb Cancelled, Hct 40.1 01/07/25 12:32: Hct Cancelled, MCV 95.0 01/07/25 12:32: MCV Cancelled, MCH 31.8 01/07/25 12:32: MCH Cancelled, MCHC 33.4 01/07/25 12:32: MCHC Cancelled, Plt Count 312 01/07/25 12:32: Plt Count Cancelled, MPV 11.0 01/07/25 12:32: MPV Cancelled, Immature Gran % (Auto) 0.300 01/07/25 12:32: Immature Gran % (Auto) Cancelled, Neut % (Auto) 70.0 01/07/25 12:32: Neut % (Auto) Cancelled, Lymph % (Auto) 14.8 L 01/07/25 12:32: Lymph % (Auto) Cancelled, Drew % (Auto) 9.1 01/07/25 12:32: Drew % (Auto) Cancelled, Eos % (Auto) 5.2 H 01/07/25 12:32: Eos % (Auto) Cancelled, Baso % (Auto) 0.6 01/07/25 12:32: Baso % (Auto) Cancelled, Absolute Neuts (auto) 8.4 H 01/07/25 12:32: Absolute Neuts (auto) Cancelled, Total Counted Cancelled, Neutrophils % (Manual) Cancelled, Band Neutrophils % Cancelled, Lymphocytes % (Manual) Cancelled, Monocytes % (Manual) Cancelled, Eosinophils % (Manual) Cancelled, Basophils % (Manual) Cancelled, Metamyelocytes % Cancelled, Myelocytes % Cancelled, Promyelocytes % Cancelled, Blast Cells % Cancelled, Plasma Cell % (Manual) Cancelled, Other Cells % Cancelled, Nucleated RBC % 0 01/07/25 12:32: Nucleated RBC % Cancelled, D-Dimer Quant (PE/DVT) 0.83 H*, Sodium 138, Potassium 4.0, Chloride 99, Carbon Dioxide 25.3, Anion Gap 13, BUN 29 H, Creatinine 1.26 H, Est GFR (MDRD) Non-Af 45 L, BUN/Creatinine Ratio 22.7 H, Glucose 186 H, Calcium 9.5 01/07/25 14:31: PT 14.2, INR 1.1, APTT 26.9 01/08/25 04:49: WBC 10.4, RBC 3.99 L, Hgb 12.2, Hct 37.3, MCV 93.5, MCH 30.6, MCHC 32.7, Plt Count 282, MPV 11.0, Immature Gran % (Auto) 0.500, Neut % (Auto) 68.5, Lymph % (Auto) 13.2 L, Drew % (Auto) 10.8 H, Eos % (Auto) 6.3 H, Baso % (Auto) 0.7, Absolute Neuts (auto) 7.1, Nucleated RBC % 0 Rhythm: EKG: ECHO: Stress Test: Cardiac Cath: PCI: CT Surgery: Holter monitor: EPS: PPM: CXR: Chest CT Scan: Radiography Diagnostic Testing: Radiology Impression Chest X-Ray 01/07/25 12:40 IMPRESSION: NO ACUTE FINDINGS. Reading Location: [facility] Chest CTA 01/07/25 13:24 IMPRESSION: No significant abnormality Reading Location: [facility] LINK Risk Score for UA/STEMI Assesmment (YES = 1) Risk Stratification Applicable: Yes Age > or = 65: Yes > or = 3 CAD risk factors (HTN, Hypercholesterolemia, Diabetes, family hx, current smoker): Yes Known CAD (Stenosis > or = 50%): Yes ASA used in past 7 days: Yes Severe angina (> or = 2 episodes in 24 hrs): Yes EKG ST change > or = 0.5mm: No Positive cardiac markers: Yes Score LINK Risk Score of mortality/ recurrent ischemic event over the next 14 days: 6- 7 = 40.9% - HIGH RISK 01/09/25 0635 <Electronically signed by Jorge Anderson MD> Cosigner Signature (if applicable): CC: Dr. Marielos Perla, DO~ Signed [facility] Work Phone: 1(443) 171-302009-21-2025 History and physical note Author [facility]itza [facility] Note Date/Time January 07, 2025 5:21pm [facility] Medical Records Department [address] [place] [address] H&P Exam - Hospitalist 01/07/25 1436 MR#: [id number] Acct: [id number] Name: CHRISTY FRANCIS Rep #:[id number] : 1950 74 From: Maritza Suresh MD PCP: Dr. Marielos Perla, Status:ADM BRIAN Location: [place] [id number]- HPI - General General Date of Admission: 01/07/25 Date of Service: 01/07/25 Chief Complaint: chest pain HPI Narrative CHRISTY FRANCIS, is a 74 F with an extensive PMH as outlined who presents via the ED on 01/07/2025 with a complaint of chest pain. The chest pain started at around 9 AM on the morning of admission. Her past medical history includes a history of CABG in 2019 at [facility] as well as peripheral artery disease, hyperlipidemia and type 2 diabetes mellitus. She also admitted to [facility] for several weeks prior to admission. She denied shortness of breath, nausea, vomiting or any other symptoms. Review of systems otherwise negative. She is on baby aspirin and took it on the day of admission. Vitals in the ED were blood pressure 116/61, pulse rate of 97, respiratory rate of 14 and she was saturating at 98% on room air. CBC showed hemoglobin of 13.4,WBC of 11.9 and platelets of 312. D-dimer was elevated at 0.83. Chemistry showed sodium of 138 with potassium of 4 and bicarb of 25.3. Anion gap was 13. Creatinine was 1.26. EKG showed no acute ST changes. CTA of the chest showed no evidence of PE. Chest x- ray showed no acute cardiopulmonary findings. Initial troponin was 27. She has been admitted to be managed for chest pain rule out ACS. [facility] Medical History Severe left ventricular systolic dysfunction (LVSD) Palpitations Right rotator cuff tear Trigger finger of both hands Carpal tunnel syndrome on both sides FHx: cholecystectomy History of left heart catheterization (LHC) (~06/03/21) Essential hypertension Mechanical loosening of prosthetic knee Atherosclerosis of [place] coronary artery of [place] heart without angina pectoris PAD (peripheral artery disease) HLD (hyperlipidemia) Type II diabetes mellitus Home Medications ?Medication ?Instructions ?Recorded ?Last Taken ?Type aspirin 81 mg tablet,delayed 81 mg PO DAILY heart heal 12/15/13 06/03/21 History release duloxetine 60 mg capsule,delayed 60 mg PO DAILY mental health 08/20/22 Unknown History release allopurinol 300 mg tablet 300 mg PO BID gout 11/05/23 Unknown History cilostazol 100 mg tablet 100 mg PO BID anti platelet 11/05/23 Unknown History oxycodone-acetaminophen 5 mg-325 1 tab PO TID PRN PRN pain 02/19/24 02/03/24 History mg tablet rosuvastatin 10 mg tablet See Rx Instructions .Route 1 Unknown Rx .COMPLEX cholesterol #90 TABLETS furosemide 40 mg tablet 40 mg PO DAILY diuretic #90 TABLETS 06/19/24 Unknown Rx glimepiride 4 mg tablet 4 mg PO BID 11/02/24 Unknown History insulin aspar prt-insulin aspart 20 unit subcut QAM di abetes 11/02/24 Unknown History 100 unit/mL (70-30) subcutaneous soln (Novolog Mix 70-30 U-100 Insuln) nitroglycerin 0.4 mg sublingual 0.4 mg sublingual Q5-1 5M PRN chest 11/02/24 Unknown Rx tablet pain #25 tabs tirzepatide 10 mg/0.5 mL 10 mg subcut .every week Unknown History subcutaneous pen injector (May) metoprolol tartrate 50 mg tablet 50 mg PO BID blood pr essure #180 12/11/24 Unknown Rx tabs isosorbide mononitrate 60 mg 60 mg PO BID 01/07/25 Unk nown History tablet,extended release 24 hr losartan 25 mg tablet 25 mg PO DAILY 01/07/25 Unkn own History omeprazole 20 mg capsule,delayed 20 mg PO DAILY Unknown History release Allergy/AdvReac Type Severity Reaction Status Date / Time cefazolin Allergy Shortness Verified 01/07/25 12:23 of breath codeine Allergy Shortness Verified 01/07/25 12:23 of breath morphine Allergy Other Verified 01/07/25 12:23 naloxone (Naloxone) Allergy Shortness Verified 01/07/25 12:23 of breath pentazocine Allergy Shortness Verified 01/07/25 12:23 of breath pentazocine lactate (From Allergy Shortness Verified 01/07/25 12:23 Flakita) of breath atorvastatin AdvReac Severe Severe Verified 01/07/25 12:23 myalgias acetaminophen (From Tylenol) AdvReac Nausea Verified 01/07/25 12:23 Family History Mother Heart disease Surgical History History of cholecystectomy History of coronary artery bypass graft x 3 (~02/27/19) History of prosthetic unicompartmental arthroplasty of left knee Social History Smoking Status: Light Smoker (<10/day) alcohol intake: current alcohol intake frequency: holidays/special occasions only substance use type: does not use caffeine: Yes Type: coffee Number of servings: 3 ROS Constitutional Constitutional: Reports fatigue, malaise and weakness; Denies anorexia, chills or fever(s) Eyes Eyes: Denies change in vision ENT HEENT: Denies dysphagia or headache(s) Cardiovascular Cardiovascular: Reports chest pain; Denies claudication, dyspnea on exertion, edema, lightheadedness, orthopnea, palpitations, paroxysmal nocturnal dyspnea, rapid heart rate or syncope Respiratory/Chest Respiratory/Chest: Denies cough, excessive phlegm production, productive cough, shortness of breath at rest or shortness of breath with exertion Gastrointestinal Gastrointestinal: Denies abdominal pain, diarrhea, nausea or vomiting Genitourinary Genitourinary: Denies difficulty urinating Neurologic Neurologic: Denies confusion, dizziness, focal weakness, headache(s), numbness, seizures or syncope Psychiatric Psychiatric: Denies anxiety or depression Vital Signs Vital Signs Vital Signs: 01/07/25 12:23 01/07/25 13:04 01/07/25 13:06 Temperature 97.3 F L Temperature Source Temporal Pulse Rate 106 H 100 Respiratory Rate 18 21 H Respiratory Effort Short of Breath Blood Pressure 128/98 H 121/57 H Blood Pressure Mean 108 76 Pulse Ox 98 96 Oxygen Delivery Method Room Air 01/07/25 14:00 Temperature Temperature Source Pulse Rate 97 Respiratory Rate 24 H Respiratory Effort Blood Pressure 116/61 Blood Pressure Mean 78 Pulse Ox 98 Oxygen Delivery Method Weight Weight: 167 lb 6.4 oz Body Mass Index (BMI) 30.6 Physical Exam Const alert, oriented x3 and no apparent distress General Appearance: cooperative HEENT normocephalic, head/scalp atraumatic, moist oral mucous membranes and oropharynxnormal Mouth: oral and palatal mucosa normal Neck No supple Resp Resp Narrative: mildly diminished breath sounds bibasally, no wheezes or crackles. On room air. Cardio regular rate, regular rhythm, S1 normal heart sound, S2 normal heart sound and no murmurs GI normal to inspection, nondistended, normoactive bowel sounds, soft to palpation,non-tender and non-distended Extremity normal to inspection, full ROM and no clubbing, cyanosis or edema Neuro oriented x3, CN's II-XII intact bilaterally, moves all extremities and no focal motor deficits Sensorium / Orientation: awake and alert Motor Exam: strength 5/5 throughout Psych affect normal Results Lab / Micro Data 01/07/25 12:32 01/07/25 12:32 Labs: Laboratory Results - last 24 hr 01/07/25 12:32: WBC 11.9 H, RBC 4.22, Hgb 13.4, Hct 40.1, MCV 95.0, MCH 31.8, MCHC 33.4, RDW Std Deviation 53.1 H, RDW Coeff of Dede 15.2 H, Plt Count 312, MPV11.0, Immature Gran % (Auto) 0.300, Neut % (Auto) 70.0, Lymph % (Auto) 14.8 L, Drew % (Auto) 9.1, Eos % (Auto) 5.2 H, Baso % (Auto) 0.6, Absolute Neuts (auto) 8.4 H, Absolute Lymphs (auto) 1.76, Nucleated RBC % 0, D-Dimer Quant (PE/DVT) 0.83 H*, Sodium 138, Potassium 4.0, Chloride 99, Carbon Dioxide 25.3, Anion Gap 13, BUN 29 H, Creatinine 1.26 H, Estim Creat Clear Calc 37.37 L, Est GFR (MDRD) Non-Af 45 L, BUN/Creatinine Ratio 22.7 H, Glucose 186 H, Calcium 9.5, Troponin THigh Sens 27 H Imaging Radiology Impression Chest X-Ray 01/07/25 12:40 IMPRESSION: NO ACUTE FINDINGS. Reading Location: [facility] Assessment & Plan Assessment/Plan (1) Chest pain: PLAN: Plan #Chest pain to rule out ACS * admit to PCU with telemetry * admitted with a complaint of chest pain. * Initial troponin was 2026. Repeat is pending. EKG showed no acute ST changes. * She does have a history of CAD s/p CABG back in 2019 * On aspirin and high intensity statin. Started on heparin drip per cardiology. * For stress test tomorrow per cardiology. #CAD s/p CABG x 3: On aspirin and high intensity statin. Also on Imdur and metoprolol as well as cilostazol #GERD: On PPI #Benign essential hypertension: On metoprolol #Hyperlipidemia: On statin #Type 2 diabetes mellitus: Hold oral meds. Insulin sliding scale. Accu-Cheks ACHS. Also on tirzepatide. I will hold. Nicotine dependence: Patient says she quit smoking but recently had a in the family and active tobacco smoking. She smokes about 5 cigarettes a day. Counseled to quit. Nicotine patch 14 g daily as needed DVT prophylaxis: lovenox Code status: full code * Patient counseled extensively about different types of CODE STATUS including full code, DNR CCA and DNR CCA. She initial did not want to have CPR or intubation but after she was counseled that it did not mean she would be kept on machines forever, she was finally agreeable to being full code. This was all done in presence of her tayokcca-ke-ssj Lynda Francis who is a nurse in the hospital. * Patient elects to be full code. * Total cyrs-kh-ncin time 16 minutes. Charges/Coding Visit Charges Inpatient E&M: 50201 Init Hosp L3 Procedures Hospitalists Procedures: 47965 Advncd Care Plan 30 Min 01/07/25 1721 <Electronically signed by Maritza Suresh MD> Cosigner Signature (if applicable): CC: Dr. Marielos Perla DO; Dr. Maritza Suresh MD~ Signed [facility] Work Phone: 1(771) 540-812309-21-2025 History and physical note [facility] Medical Records Department [address] [place] [address] H&P Exam - Hospitalist 01/07/25 1436 MR#: [id number] Acct: [id number] Name: CHRISTY FRANCIS Rep #:[id number] : 1950 74 From: Maritza Suresh MD PCP: Dr. Marielos Perla DO Status:ADM BRIAN Location: [place] [address] HPI - General General Date of Admission: 01/07/25 Date of Service: 01/07/25 Chief Complaint: chest pain HPI Narrative CHRISTY FRANCIS, is a 74 F with an extensive PMH as outlined who presents via the ED on 01/07/2025 with a complaint of chest pain. The chest pain started at around 9 AM on the morning of admission. Her past medical history includes a history of CABG in 2019 at [facility] as well as peripheral artery disease,hyperlipidemia and type 2 diabetes mellitus. [facility] to [facility]. She denied shortness of breath, nausea, vomiting or any other symptoms. Review of systems otherwise negative. She is on baby aspirin and took it on the day of admission. Vitals in the ED were blood pressure 116/61, pulse rate of 97, respiratory rate of 14 and she was saturating at 98% on room air. CBC showed hemoglobin of 13.4,WBC of 11.9 and platelets of 312. D-dimer was elevated at 0.83. Chemistry showed sodium of 138 with potassium of 4 and bicarb of 25.3. Aniongap was 13. Creatinine was 1.26. EKG showed no acute ST changes. CTA of the chest showed no evidence of PE. Chest x-ray showed no acute cardiopulmonary findings. Initial troponin was 27. She has beenadmitted to be managed for chest pain rule out ACS. [facility] Medical History Severe left ventricular systolic dysfunction (LVSD) Palpitations Right rotator cuff tear Trigger finger of both hands Carpal tunnel syndrome on both sides FHx: cholecystectomy History of left heart catheterization (LHC) (~06/03/21) Essential hypertension Mechanical loosening of prosthetic knee Atherosclerosis of [place] coronary artery of [place] heart without angina pectoris PAD (peripheral artery disease) HLD (hyperlipidemia) Type II diabetes mellitus Home Medications ?Medication ?Instructions ?Recorded ?Last Taken ?Type aspirin 81 mg tablet,delayed 81 mg PO DAILY heart heal th 12/15/13 06/03/21 History release duloxetine 60 mg capsule,delayed 60 mg PO DAILY mental health 08/20/22 Unknown History release allopurinol 300 mg tablet 300 mg PO BID gout 11/05/23 Unknown History cilostazol 100 mg tablet 100 mg PO BID anti platelet 11/05/23 Unknown History oxycodone-acetaminophen 5 mg-325 1 tab PO TID PRN PRN pain 02/19/24 02/03/24 History mg tablet rosuvastatin 10 mg tablet See Rx Instructions .Route 1 Unknown Rx .COMPLEX cholesterol #90 TABLETS furosemide 40 mg tablet 40 mg PO DAILY diuretic #90 TABLETS 06/19/24 Unknown Rx glimepiride 4 mg tablet 4 mg PO BID 11/02/24 Unknown History insulin aspar prt-insulin aspart 20 unit subcut QAM di abetes 11/02/24 Unknown History 100 unit/mL (70-30) subcutaneous soln (Novolog Mix 70-30 U-100 Insuln) nitroglycerin 0.4 mg sublingual 0.4 mg sublingual Q5-1 5M PRN chest 11/02/24 Unknown Rx tablet pain #25 tabs tirzepatide 10 mg/0.5 mL 10 mg subcut .every week Unknown History subcutaneous pen injector (May) metoprolol tartrate 50 mg tablet 50 mg PO BID blood pr essure #180 12/11/24 Unknown Rx tabs isosorbide mononitrate 60 mg 60 mg PO BID 01/07/25 Unk nown History tablet,extended release 24 hr losartan 25 mg tablet 25 mg PO DAILY 01/07/25 Unkn own History omeprazole 20 mg capsule,delayed 20 mg PO DAILY Unknown History release Allergy/AdvReac Type Severity Reaction Status Date / Time cefazolin Allergy Shortness Verified 01/07/25 12:23 of breath codeine Allergy Shortness Verified 01/07/25 12:23 of breath morphine Allergy Other Verified 01/07/25 12:23 naloxone (Naloxone) Allergy Shortness Verified 01/07/25 12:23 of breath pentazocine Allergy Shortness Verified 01/07/25 12:23 of breath pentazocine lactate (From Allergy Shortness Verified 01/07/25 12:23 Talwin) of breath atorvastatin AdvReac Severe Severe Verified 01/07/25 12:23 myalgias acetaminophen (From Tylenol) AdvReac Nausea Verified 01/07/25 12:23 Family History Mother Heart disease Surgical History History of cholecystectomy History of coronary artery bypass graft x 3 (~02/27/19) History of prosthetic unicompartmental arthroplasty of left knee Social History Smoking Status: Light Smoker (<10/day) alcohol intake: current alcohol intake frequency: holidays/special occasions only substance use type: does not use caffeine: Yes Type: coffee Number of servings: 3 ROS Constitutional Constitutional: Reports fatigue, malaise and weakness; Denies anorexia, chills or fever(s) Eyes Eyes: Denies change in vision ENT HEENT: Denies dysphagia or headache(s) Cardiovascular Cardiovascular: Reports chest pain; Denies claudication, dyspnea on exertion, edema, lightheadedness, orthopnea, palpitations, paroxysmal nocturnal dyspnea, rapid heart rate or syncope Respiratory/Chest Respiratory/Chest: Denies cough, excessive phlegm production, productive cough, shortness of breathat rest or shortness of breath with exertion Gastrointestinal Gastrointestinal: Denies abdominal pain, diarrhea, nausea or vomiting Genitourinary Genitourinary: Denies difficulty urinating Neurologic Neurologic: Denies confusion, dizziness, focal weakness, headache(s), numbness, seizures or syncope Psychiatric Psychiatric: Denies anxiety or depression Vital Signs Vital Signs Vital Signs: 01/07/25 12:23 01/07/25 13:04 01/07/25 13:06 Temperature 97.3 F L Temperature Source Temporal Pulse Rate 106 H 100 Respiratory Rate 18 21 H Respiratory Effort Short of Breath Blood Pressure 128/98 H 121/57 H Blood Pressure Mean 108 76 Pulse Ox 98 96 Oxygen Delivery Method Room Air 01/07/25 14:00 Temperature Temperature Source Pulse Rate 97 Respiratory Rate 24 H Respiratory Effort Blood Pressure 116/61 Blood Pressure Mean 78 Pulse Ox 98 Oxygen Delivery Method Weight Weight: 167 lb 6.4 oz Body Mass Index (BMI) 30.6 Physical Exam Const alert, oriented x3 and no apparent distress General Appearance: cooperative HEENT normocephalic, head/scalp atraumatic, moist oral mucous membranes and oropharynxnormal Mouth: oral and palatal mucosa normal Neck No supple Resp Resp Narrative: mildly diminished breath sounds bibasally, no wheezes or crackles. On room air. Cardio regular rate, regular rhythm, S1 normal heart sound, S2 normal heart sound and no murmurs GI normal to inspection, nondistended, normoactive bowel sounds, soft to palpation,non-tender and non-distended Extremity normal to inspection, full ROM and no clubbing, cyanosis or edema Neuro oriented x3, CN's II-XII intact bilaterally, moves all extremities and no focal motor deficits Sensorium / Orientation: awake and alert Motor Exam: strength 5/5 throughout Psych affect normal Results Lab / Micro Data 01/07/25 12:32 01/07/25 12:32 Labs: Laboratory Results - last 24 hr 01/07/25 12:32: WBC 11.9 H, RBC 4.22, Hgb 13.4, Hct 40.1, MCV 95.0, MCH 31.8, MCHC 33.4, RDW Std Deviation 53.1 H, RDW Coeff of Dede 15.2 H, Plt Count 312, MPV11.0, Immature Gran % (Auto) 0.300, Neut % (Auto) 70.0, Lymph % (Auto) 14.8 L, Drew % (Auto) 9.1, Eos % (Auto) 5.2 H, Baso % (Auto) 0.6, Absolute Neuts (auto) 8.4 H, Absolute Lymphs (auto) 1.76, Nucleated RBC % 0, D-Dimer Quant (PE/DVT) 0.83H*, Sodium 138, Potassium 4.0, Chloride 99, Carbon Dioxide 25.3, Anion Gap 13, BUN 29 H, Creatinine1.26 H, Estim Creat Clear Calc 37.37 L, Est GFR (MDRD) Non-Af 45 L, BUN/Creatinine Ratio 22.7 H, Glucose 186 H, Calcium 9.5, Troponin THigh Sens 27 H Imaging Radiology Impression Chest X-Ray 01/07/25 12:40 IMPRESSION: NO ACUTE FINDINGS. Reading Location: [id number] Assessment & Plan Assessment/Plan (1) Chest pain: PLAN: Plan #Chest pain to rule out ACS * admit to PCU with telemetry * admitted with a complaint of chest pain. * Initial troponin was 2026. Repeat is pending. EKG showed no acute ST changes. * She does have a history of CAD s/p CABG back in 2019 * On aspirin and high intensity statin. Started on heparin drip per cardiology. * For stress test tomorrow per cardiology. #CAD s/p CABG x 3: On aspirin and high intensity statin. Also on Imdur and metoprolol as well as cilostazol #GERD: On PPI #Benign essential hypertension: On metoprolol #Hyperlipidemia: On statin #Type 2 diabetes mellitus: Hold oral meds. Insulin sliding scale. Accu-Cheks ACHS. Also on tirzepatide. I will hold. Nicotine dependence: Patient says she quit smoking but recently had a in the family and active tobacco smoking. She smokes about 5 cigarettes a day. Counseled to quit. Nicotine patch 14 g dailyas needed DVT prophylaxis: lovenox Code status: full code * Patient counseled extensively about different types of CODE STATUS including full code, DNR CCA and DNR CCA. She initial did not want to have CPR or intubation but after she was counseled that it did not mean she would be kept on machines forever, she was finally agreeable to being full code. This was all done in presence of her bavaqncu-cb-dwc Lynda Francis who is a nurse in the hospital. * Patient elects to be full code. * Total ekpj-aq-bmzs time 16 minutes. Charges/Coding Visit Charges Inpatient E&M: 40176 Init Hosp L3 Procedures Hospitalists Procedures: 21048 Advncd Care Plan 30 Min 01/07/25 1721 Cosigner Signature (if applicable): CC: Dr. Marielos Perla DO; Dr. Maritza Suresh MD~ Signed [facility]09-21-2025 Discharge summary Author Elena Bill [facility] Note Date/Time January 07, 2025 2:51pm [facility] Medical Records Department [address] [place] [address] Emergency Department Summary 01/07/25 MR#: [id number] Acct: [id number] Name: CHRITSY FRANCIS Rep #:[id number] : 1950 74 From: Elena Bill MD PCP: Dr. Marielos Perla DO Status:REG ER Location: ED HPI History of Present Illness Chief Complaint: Chest Pain Narrative Narrative: Patient is a 74-year-old female presenting to the emergency department for chestpain that started around 9 AM this morning. Patient has a past medical history of a CABG in 2019 at [facility], palpitations, hypertension, hyperlipidemia, type 2 diabetes and peripheral artery disease. Patient states that she has been havingindigestion for the past few weeks. States that today at 9 AM she developed left-sided chest pressure and a sharp pain in her left shoulder blade. She states the pain goes down her left arm. She endorses some mild shortness of breath and nausea associated with it. Denies any diaphoresis. Denies any fever, chills, cough, abdominal pain, vomiting. Denies any history of PE or DVT. Denies any recent travel, hospitalizations or surgeries. She is not on any oral anticoagulation. She did take her baby aspirin this morning prior to coming. [facility] Medical History Severe left ventricular systolic dysfunction (LVSD) Palpitations Right rotator cuff tear Trigger finger of both hands Carpal tunnel syndrome on both sides FHx: cholecystectomy History of left heart catheterization (LHC) (~06/03/21) Essential hypertension Mechanical loosening of prosthetic knee Atherosclerosis of [place] coronary artery of [place] heart without angina pectoris PAD (peripheral artery disease) HLD (hyperlipidemia) Type II diabetes mellitus Home Medications ?Medication ?Instructions ?Recorded ?Last Taken ?Type aspirin 81 mg tablet,delayed 81 mg PO DAILY heart heal th 12/15/13 06/03/21 History release duloxetine 60 mg capsule,delayed 60 mg PO DAILY mental health 08/20/22 Unknown History release allopurinol 300 mg tablet 300 mg PO BID gout 11/05/23 Unknown History cilostazol 100 mg tablet 100 mg PO BID anti platelet 11/05/23 Unknown History oxycodone-acetaminophen 5 mg-325 1 tab PO TID PRN PRN pain 02/19/24 02/03/24 History mg tablet rosuvastatin 10 mg tablet See Rx Instructions .Route 1 Unknown Rx .COMPLEX cholesterol #90 TABLETS furosemide 40 mg tablet 40 mg PO DAILY diuretic #90 TABLETS 06/19/24 Unknown Rx glimepiride 4 mg tablet 4 mg PO BID 11/02/24 Unknown History insulin aspar prt-insulin aspart 20 unit subcut QAM di abetes 11/02/24 Unknown History 100 unit/mL (70-30) subcutaneous soln (Novolog Mix 70-30 U-100 Insuln) nitroglycerin 0.4 mg sublingual 0.4 mg sublingual Q5-1 5M PRN chest 11/02/24 Unknown Rx tablet pain #25 tabs tirzepatide 10 mg/0.5 mL 10 mg subcut .every week Unknown History subcutaneous pen injector (May) metoprolol tartrate 50 mg tablet 50 mg PO BID blood pr essure #180 12/11/24 Unknown Rx tabs Allergy/AdvReac Type Severity Reaction Status Date / Time cefazolin Allergy Shortness Verified 01/07/25 12:23 of breath codeine Allergy Shortness Verified 01/07/25 12:23 of breath morphine Allergy Other Verified 01/07/25 12:23 naloxone (Naloxone) Allergy Shortness Verified 01/07/25 12:23 of breath pentazocine Allergy Shortness Verified 01/07/25 12:23 of breath pentazocine lactate (From Allergy Shortness Verified 01/07/25 12:23 Talwin) of breath atorvastatin AdvReac Severe Severe Verified 01/07/25 12:23 myalgias acetaminophen (From Tylenol) AdvReac Nausea Verified 01/07/25 12:23 Family History Mother Heart disease Surgical History History of cholecystectomy History of coronary artery bypass graft x 3 (~02/27/19) History of prosthetic unicompartmental arthroplasty of left knee Social History Smoking Status: Light Smoker (<10/day) alcohol intake: current alcohol intake frequency: holidays/special occasions only substance use type: does not use caffeine: Yes Type: coffee Number of servings: 3 ROS ROS ED ROS Narrative see HPI EXAM Physical Exam Narrative Exam Narrative: Vital signs: Reviewed General: Alert and oriented x 3. No acute distress HEENT: Head is normocephalic and atraumatic, sinuses nontender, pupils equal round and reactive. Nares are patent. Oropharynx and throat exams normal. Neck: Supple without lymphadenopathy nontender Cardiovascular: Regular rate and rhythm, no murmurs. No rubs or gallops. Normal S1 and S2. Equal and symmetric 2+ pulses radial and DP PT Respiratory: Clear to auscultation bilaterally. No wheezes, rales, rhonchi Abdominal: Soft and nontender. Normal bowel sounds. No guarding or rebound. Nonsurgical abdomen Extremities: No tenderness. No bruising. Normal range of motion. Normal sensation. Skin: No rash or redness. Neurological: Cranial nerves II through XII are grossly intact. Normal strengthand sensation. Normal cerebellar function The rest of the physical exam is unremarkable Const Vital Signs: 01/07/25 12:23 01/07/25 13:04 01/07/25 13:06 Temperature 97.3 F L Temperature Source Temporal Pulse Rate 106 H 100 Respiratory Rate 18 21 H Respiratory Effort Short of Breath Blood Pressure 128/98 H 121/57 H Blood Pressure Mean 108 76 Pulse Ox 98 96 Oxygen Delivery Method Room Air 01/07/25 14:00 Temperature Temperature Source Pulse Rate 97 Respiratory Rate 24 H Respiratory Effort Blood Pressure 116/61 Blood Pressure Mean 78 Pulse Ox 98 Oxygen Delivery Method MDM MDM MDM Narrative Medical decision making narrative: Patient is a 74-year-old female presenting to the emergency department for chestpain that started at 9 AM this morning. Patient was seen and examined. Vitals are stable. Patient resting in bed comfortably in no acute distress. Last stress test was in 03/12 and was normal with preserved EF. Last ECHO was 03/12 and shows severe concentric left ventricular hypertrophy with EF of 60%. With normal LV size and stage 1 diastolic dysfunction. Differential includes but is not limited to: ACS, pneumonia, less likely aortic pathology or PE EKG shows normal sinus rhythm with no ischemic changes. No dysrhythmia. 243 mg aspirin given here. She took 1 baby aspirin this morning. Nitro ordered however patient's diastolic blood pressure was slightly low and nurse did not feel comfortable giving at that time. CBC with mild leukocytosis of 11.9 and normal hemoglobin. BMP with baseline mild CKD otherwise no significant abnormalities. D-dimer elevated at 0.83, CT of the chest ordered to rule out pulmonary embolism. CT shows no significant abnormality. Initial troponin elevated at 27. Reflex pending. Discussed patient with Dr. Anderson who states if Serge concerned about cardiac cause of the patients chest pain to start on heparin drip and admit to hospitalist for ECHO. Discussed with patient. She has no contraindications for heparin. Heparin drip started. Patient admitted to Dr. Suresh for further management. Clinical impression NSTEMI History & Record Review Discussion w/independent historian: Patient and Family Lab Data Attestation: I reviewed the patient's lab results. Labs: Laboratory Results - last 24 hr 01/07/25 12:32 WBC 11.9 H RBC 4.22 Hgb 13.4 Hct 40.1 MCV 95.0 MCH 31.8 MCHC 33.4 RDW Std Deviation 53.1 H RDW Coeff of Dede 15.2 H Plt Count 312 MPV 11.0 Immature Gran % (Auto) 0.300 Neut % (Auto) 70.0 Lymph % (Auto) 14.8 L Drew % (Auto) 9.1 Eos % (Auto) 5.2 H Baso % (Auto) 0.6 Absolute Neuts (auto) 8.4 H Absolute Lymphs (auto) 1.76 Nucleated RBC % 0 D-Dimer Quant (PE/DVT) 0.83 H* Sodium 138 Potassium 4.0 Chloride 99 Carbon Dioxide 25.3 Anion Gap 13 BUN 29 H Creatinine 1.26 H Estim Creat Clear Calc 37.37 L Est GFR (MDRD) Non-Af 45 L BUN/Creatinine Ratio 22.7 H Glucose 186 H Calcium 9.5 Troponin T High Sens 27 H Radiography Diagnostic Testing: Clinical Impression(s) from Imaging Studies Chest X-Ray 01/07/25 12:40 IMPRESSION: NO ACUTE FINDINGS. Reading Location: [facility] Chest CTA 01/07/25 13:24 IMPRESSION: No significant abnormality Reading Location: [facility] Discharge Plan Triage Chief Complaint: Chest Pain ED Provider: Elena Bill Dx/Rx/DC Orders Prescriptions: No Action duloxetine 60 mg capsule,delayed release(DR/EC) 60 mg PO DAILY insulin asp prt-insulin aspart [Novolog Mix 70-30 U-100 Insuln] 100 unit/mL (70- 30) solution 20 unit subcut QAM Patient Comments: 20-25 cilostazol 100 mg tablet 100 mg PO BID allopurinol 300 mg tablet 300 mg PO BID glimepiride 4 mg tablet 4 mg PO BID Mounjaro 10 mg/0.5 mL pen injector 10 mg subcut .every week Patient Comments: [NO ORIGINAL SIG] nitroglycerin 0.4 mg tablet, sublingual 0.4 mg sublingual Q5-15M PRN (Reason: chest pain) Qty: 25 3RF Rx Instructions: do not exceed 3 doses per episode aspirin 81 MG tablet 81 mg PO DAILY oxycodone-acetaminophen 5-325 mg tablet 1 tab PO TID PRN PRN (Reason: pain) rosuvastatin 10 mg tablet See Rx Instructions .ROUTE .COMPLEX Qty: 90 3RF Dose Instruction: TAKE 1 TABLET BY MOUTH EVERY DAY Rx Instructions: TAKE 1 TABLET BY MOUTH EVERY DAY furosemide 40 mg tablet 40 mg PO DAILY Qty: 90 3RF metoprolol tartrate 50 mg tablet 50 mg PO BID Qty: 180 3RF Primary Care Provider: Marielos Perla Referrals: Marielos Perla DO [Primary Care Provider, Family Practice] Print Language: Algerian What to do if you have Problems For any increased pain, shortness of breath, bleeding, nausea or vomiting, chestpain, or any unexpected problems, contact your Primary Care Provider. Call [facility] ([phone]) or report to the closest Emergency Room. Call 911 if necessary. 01/07/25 1455 <Electronically signed by Elena Bill MD> Cosigner Signature (if applicable): CC: Dr. Marielos Perla DO ~ Signed [facility] Work Phone: 1(895) 515-455909-21-2025 Discharge summary [facility] Medical Records Department [address] [place] [address] Emergency Department Summary 01/07/25 MR#: [id number] Acct: [id number] Name: CHRISTY FRANCIS Rep #:[id number] : 1950 74 From: Elena Bill MD PCP: Dr. Marielos Perla DO Status:REG ER Location: ED HPI History of Present Illness Chief Complaint: Chest Pain Narrative Narrative: Patient is a 74-year-old female presenting to the emergency department for chestpain that started around 9 AM this morning. Patient has a past medical history of a CABG in 2019 at [facility], palpitations, hypertension, hyperlipidemia, type 2 diabetes and peripheral artery disease. Patient states that she has been havingindigestion for the past few weeks. States that today at 9 AM she developed left-sided chest pressure and a sharp pain in her left shoulder blade. She states the pain goes down herleft arm. She endorses some mild shortness of breath and nausea associated with it. Denies any diaphoresis. Denies any fever, chills, cough, abdominal pain, vomiting. Denies any history of PE or DVT.Denies any recent travel, hospitalizations or surgeries. She is not on any oral anticoagulation. She did take her baby aspirin this morning prior to coming. [facility] Medical History Severe left ventricular systolic dysfunction (LVSD) Palpitations Right rotator cuff tear Trigger finger of both hands Carpal tunnel syndrome on both sides FHx: cholecystectomy History of left heart catheterization (LHC) (~06/03/21) Essential hypertension Mechanical loosening of prosthetic knee Atherosclerosis of [place] coronary artery of [place] heart without angina pectoris PAD (peripheral artery disease) HLD (hyperlipidemia) Type II diabetes mellitus Home Medications ?Medication ?Instructions ?Recorded ?Last Taken ?Type aspirin 81 mg tablet,delayed 81 mg PO DAILY heart heal th 12/15/13 06/03/21 History release duloxetine 60 mg capsule,delayed 60 mg PO DAILY mental health 08/20/22 Unknown History release allopurinol 300 mg tablet 300 mg PO BID gout 11/05/23 Unknown History cilostazol 100 mg tablet 100 mg PO BID anti platelet 11/05/23 Unknown History oxycodone-acetaminophen 5 mg-325 1 tab PO TID PRN PRN pain 02/19/24 02/03/24 History mg tablet rosuvastatin 10 mg tablet See Rx Instructions .Route 1 Unknown Rx .COMPLEX cholesterol #90 TABLETS furosemide 40 mg tablet 40 mg PO DAILY diuretic #90 TABLETS 06/19/24 Unknown Rx glimepiride 4 mg tablet 4 mg PO BID 11/02/24 Unknown History insulin aspar prt-insulin aspart 20 unit subcut QAM di abetes 11/02/24 Unknown History 100 unit/mL (70-30) subcutaneous soln (Novolog Mix 70-30 U-100 Insuln) nitroglycerin 0.4 mg sublingual 0.4 mg sublingual Q5-1 5M PRN chest 11/02/24 Unknown Rx tablet pain #25 tabs tirzepatide 10 mg/0.5 mL 10 mg subcut .every week Unknown History subcutaneous pen injector (Aldounrcoky) metoprolol tartrate 50 mg tablet 50 mg PO BID blood pr essure #180 12/11/24 Unknown Rx tabs Allergy/AdvReac Type Severity Reaction Status Date / Time cefazolin Allergy Shortness Verified 01/07/25 12:23 of breath codeine Allergy Shortness Verified 01/07/25 12:23 of breath morphine Allergy Other Verified 01/07/25 12:23 naloxone (Naloxone) Allergy Shortness Verified 01/07/25 12:23 of breath pentazocine Allergy Shortness Verified 01/07/25 12:23 of breath pentazocine lactate (From Allergy Shortness Verified 01/07/25 12:23 Talwin) of breath atorvastatin AdvReac Severe Severe Verified 01/07/25 12:23 myalgias acetaminophen (From Tylenol) AdvReac Nausea Verified 01/07/25 12:23 Family History Mother Heart disease Surgical History History of cholecystectomy History of coronary artery bypass graft x 3 (~02/27/19) History of prosthetic unicompartmental arthroplasty of left knee Social History Smoking Status: Light Smoker (<10/day) alcohol intake: current alcohol intake frequency: holidays/special occasions only substance use type: does not use caffeine: Yes Type: coffee Number of servings: 3 ROS ROS ED ROS Narrative see HPI EXAM Physical Exam Narrative Exam Narrative: Vital signs: Reviewed General: Alert and oriented x 3. No acute distress HEENT: Head is normocephalic and atraumatic, sinuses nontender, pupils equal round and reactive. Nares are patent. Oropharynx and throat exams normal. Neck: Supple without lymphadenopathy nontender Cardiovascular: Regular rate and rhythm, no murmurs. No rubs or gallops. Normal S1 and S2. Equal and symmetric 2+ pulses radial and DP PT Respiratory: Clear to auscultation bilaterally. No wheezes, rales, rhonchi Abdominal: Soft and nontender. Normal bowel sounds. No guarding or rebound. Nonsurgical abdomen Extremities: No tenderness. No bruising. Normal range of motion. Normal sensation. Skin: No rash or redness. Neurological: Cranial nerves II through XII are grossly intact. Normal strengthand sensation. Normal cerebellar function The rest of the physical exam is unremarkable Const Vital Signs: 01/07/25 12:23 01/07/25 13:04 01/07/25 13:06 Temperature 97.3 F L Temperature Source Temporal Pulse Rate 106 H 100 Respiratory Rate 18 21 H Respiratory Effort Short of Breath Blood Pressure 128/98 H 121/57 H Blood Pressure Mean 108 76 Pulse Ox 98 96 Oxygen Delivery Method Room Air 01/07/25 14:00 Temperature Temperature Source Pulse Rate 97 Respiratory Rate 24 H Respiratory Effort Blood Pressure 116/61 Blood Pressure Mean 78 Pulse Ox 98 Oxygen Delivery Method MDM MDM MDM Narrative Medical decision making narrative: Patient is a 74-year-old female presenting to the emergency department for chestpain that started at 9 AM this morning. Patient was seen and examined. Vitals are stable. Patient resting in bed comfortably in no acute distress. Last stress test was in 03/12 and was normal with preserved EF. Last ECHO was 03/12 and shows severe concentric left ventricular hypertrophy with EF of 60%. With normal LV size and stage 1 diastolic dysfunction. Differential includes but is not limited to: ACS, pneumonia, less likely aortic pathology or PE EKG shows normal sinus rhythm with no ischemic changes. No dysrhythmia. 243 mg aspirin given here. She took 1 baby aspirin this morning. Nitro ordered however patient's diastolic blood pressure was slightly low and nurse did not feel comfortable giving at that time. CBC with mild leukocytosis of 11.9 and normal hemoglobin. BMP with baseline mild CKD otherwise no significant abnormalities. D-dimerelevated at 0.83, CT of the chest ordered to rule out pulmonary embolism. CT shows no significant abnormality. Initial troponin elevated at 27. Reflex pending. Discussed patient with Dr. Anderson who states if Serge concerned about cardiac cause of the patients chest pain to start on heparin drip and admit to hospitalist for ECHO. Discussed with patient. She has no contraindications for heparin. Heparin drip started. Patient admitted to Dr. Suresh for further management. Clinical impression NSTEMI History & Record Review Discussion w/independent historian: Patient and Family Lab Data Attestation: I reviewed the patient's lab results. Labs: Laboratory Results - last 24 hr 01/07/25 12:32 WBC 11.9 H RBC 4.22 Hgb 13.4 Hct 40.1 MCV 95.0 MCH 31.8 MCHC 33.4 RDW Std Deviation 53.1 H RDW Coeff of Dede 15.2 H Plt Count 312 MPV 11.0 Immature Gran % (Auto) 0.300 Neut % (Auto) 70.0 Lymph % (Auto) 14.8 L Drew % (Auto) 9.1 Eos % (Auto) 5.2 H Baso % (Auto) 0.6 Absolute Neuts (auto) 8.4 H Absolute Lymphs (auto) 1.76 Nucleated RBC % 0 D-Dimer Quant (PE/DVT) 0.83 H* Sodium 138 Potassium 4.0 Chloride 99 Carbon Dioxide 25.3 Anion Gap 13 BUN 29 H Creatinine 1.26 H Estim Creat Clear Calc 37.37 L Est GFR (MDRD) Non-Af 45 L BUN/Creatinine Ratio 22.7 H Glucose 186 H Calcium 9.5 Troponin T High Sens 27 H Radiography Diagnostic Testing: Clinical Impression(s) from Imaging Studies Chest X-Ray 01/07/25 12:40 IMPRESSION: NO ACUTE FINDINGS. Reading Location: [facility] Chest CTA 01/07/25 13:24 IMPRESSION: No significant abnormality Reading [facility] Discharge Plan Triage Chief Complaint: Chest Pain ED Provider: lEena Bill Dx/Rx/DC Orders Prescriptions: No Action duloxetine 60 mg capsule,delayed release(DR/EC) 60 mg PO DAILY insulin asp prt-insulin aspart [Novolog Mix 70-30 U-100 Insuln] 100 unit/mL (70- 30) solution 20 unit subcut QAM Patient Comments: 20-25 cilostazol 100 mg tablet 100 mg PO BID allopurinol 300 mg tablet 300 mg PO BID glimepiride 4 mg tablet 4 mg PO BID Mounjaro 10 mg/0.5 mL pen injector 10 mg subcut .every week Patient Comments: [NO ORIGINAL SIG] nitroglycerin 0.4 mg tablet, sublingual 0.4 mg sublingual Q5-15M PRN (Reason: chest pain) Qty: 25 3RF Rx Instructions: do not exceed 3 doses per episode aspirin 81 MG tablet 81 mg PO DAILY oxycodone-acetaminophen 5-325 mg tablet 1 tab PO TID PRN PRN (Reason: pain) rosuvastatin 10 mg tablet See Rx Instructions .ROUTE .COMPLEX Qty: 90 3RF Dose Instruction: TAKE 1 TABLET BY MOUTH EVERY DAY Rx Instructions: TAKE 1 TABLET BY MOUTH EVERY DAY furosemide 40 mg tablet 40 mg PO DAILY Qty: 90 3RF metoprolol tartrate 50 mg tablet 50 mg PO BID Qty: 180 3RF Primary Care Provider: Marielos Perla Referrals: Marielos Perla DO [Primary Care Provider, Family Practice] Print Language: Algerian What to do if you have Problems For any increased pain, shortness of breath, bleeding, nausea or vomiting, chestpain, or any unexpected problems, contact your Primary Care Provider. Call [facility] ([phone]) or report tothe closest Emergency Room. Call 911 if necessary. 01/07/25 1451 Cosigner Signature (if applicable): CC: Dr. Marielos Perla DO ~ Signed [facility]09-21-2025 Radiology Diagnostic study note [facility] Imaging Services [address], [place] [address] CTA Chest W/WO Contrast MR#: [id number] Acct: [id number] Name: CHRISTY FRANCIS Rep #: [id number] : 1950 F 74 From: Michael Ignacio MD PCP: Dr. Marielos Perla DO Status: REG ER Study:CTA Chest W/WO Contrast Date of Exam: 01/07/25 Exam# [id number] Ordering Dr: Tomasz Bill MD PROCEDURE: CTA CHEST W/WO CONTRAST 01/07/2025 REASON FOR EXAM: ELEVATED DDIMER, CP, SOB TECHNIQUE: Procedure Code: CTCTACHWW Modality: CT Procedure: CTA CHEST W/WO CONTRAST Multiplanar Sagittal and Coronal images were obtained. 3D reconstructions CONTRAST: Isovue 370 VOLUME: 100 mL One or more dose reduction techniques were used (e.g., Automated exposure control, adjustment of the mA and/or kV according to patient size, use of iterative reconstruction technique). RADIATION DOSE SUMMARY: CTDlvol: 20 mGy DLP: 415 mGycm FINDINGS: Normal aortic arch. No filling defects in the pulmonary arterial tree. Images of the upper abdomen unremarkable. No pericardial fluid. No thoracic aneurysm. Mild coronary artery calcification. No dissection. Although lung windows were not supplied, no masses or consolidation are noted. CT/CTA Chest W/WO Contrast IMPRESSION: No significant abnormality Reading Location: [facility] CC: Dr. Elena Bill MD; Dr. Marielos Perla DO ~ Avian Keeper: Signed [facility]09-21-2025 Radiology Diagnostic study note [facility] Imaging Services [address] [place] [address] Chest PA and Lateral MR#: [id number] Acct: [id number] Name: CHRISTY FRANCIS Rep #: [id number] : 1950 F 74 From: Suhail Haines MD PCP: Dr. Marielos Perla DO Status: REG ER Study:Chest PA and Lateral Date of Exam: 01/07/25 Exam# [id number] Ordering Dr: Tomasz Bill MD PROCEDURE: CHEST PA AND LATERAL 01/07/2025 REASON FOR EXAM: CHEST PAIN TECHNIQUE: Procedure Code: RADCXR Modality: DX Procedure: CHEST PA AND LATERAL COMPARISON: 02/19/2024 FINDINGS: LUNGS AND PLEURA: The lungs are clear. No pleural effusion or pneumothorax. HEART AND MEDIASTINUM: The cardiac silhouette is mildly enlarged. The mediastinal contour is normal. Evidence of prior CABG with sternal wires in place. AORTA: Calcified thoracic aorta. BONES: No acute osseous abnormality. RAD/Chest PA and Lateral IMPRESSION: NO ACUTE FINDINGS. Reading Location: [id number] CC: Dr. Elena Bill MD; Dr. Marielos Perla DO ~ Avian Keeper: Signed [facility]09-06-2025 Radiology Diagnostic study note [facility] Imaging Services [address], [place] [address] Lumbar Spine 2 or 3 Views MR#: [id number] Acct: [id number] Name: CHRISTY FRANCIS Rep #: [id number] : 1950 74 From: Pamela Bullock MD PCP: Dr. Marielos Perla DO Status: REG CLI Study:Lumbar Spine 2 or 3 Views Date of Exam: 12/22/24 Exam# [id number] Ordering Dr: Rio Young PA EXAM: XR Lumbosacral Spine, 2 or 3 [...] changes lumbar spine as described. Reading Location: [facility] CC: SKYLER Watson; Dr. Marielos Perla DO ~ Avian Keeper: Signed [facility]08-13-2025 Radiology Diagnostic study note [facility] Imaging Services [address] [place] [id number] Pelvic w/ Transvaginal MR#: [id number] Acct: [id number] Name: CHRISTY FRANCIS Rep #: [id number] : 1950 74 From: Randy Reese MD PCP: Dr. Marielos Perla DO Status: REG CLI Study:Pelvic w/ Transvaginal Date of Exam: 11/29/24 Exam# [id number] Ordering Dr: Tresa Perla sa, DO PROCEDURE: [...] Endometrial thickening. Clinical correlation recommended. Reading Location: [id number] CC: Dr. Marielos Perla, DO ~ Avian Keeper: Signed [facility]07-17-2025 Evaluation note* Diagnosis Onset Date Resolution Status Admit Date Severe left ventricular systolic dysfunction (LVSD) acute November 02, 2024 10:11am Essential hypertension [facility] 2024 10:11am History of coronary artery bypass graft x February, chronic November 02, 2024 10:11am HLD (hyperlipidemia) chronic November 02, 2024 10:11am PAD (peripheral artery disease) chronic November 02, 2024 10:11am [facility] Work Phone: 1(990) 148-676707-17-2025 Evaluation note* Diagnosis Onset Date Resolution Status Admit Date Severe left ventricular systolic dysfunction (LVSD) acute November 02, 2024 10:11am Essential hypertension chronic ly 2024 10:11am History of coronary artery bypass graft x February, chronic November 02, 2024 10:11am HLD (hyperlipidemia) chronic November 02, 2024 10:11am PAD (peripheral artery disease) chronic November 02, 2024 10:11am Lower extremity neuropathy acute December 12, 2024 10:37am PAD (peripheral artery disease) chronic December 12 10:37am [facility] Work Phone: 1(343) 424-357607-17-2025 Evaluation note* Diagnosis Onset Date Resolution Status Admit Date Severe left ventricular systolic dysfunction (LVSD) acute November 02, 2024 10:11am Essential hypertension inactive Ju 2024 10:11am History of coronary artery bypass graft x 3 February, inactive November 02, 2024 10:11am HLD (hyperlipidemia) inactive November 02, 2024 10:11am PAD (peripheral artery disease) inactive November 02, 2024 10:11am Lower extremity neuropathy acute December 12, 2024 10:37am PAD (peripheral artery disease) inactive December 12 10:37am Lower extremity neuropathy acute January 03, 2025 9:20am PAD (peripheral artery disease) inactive January 03, 2025 9:20am Chest pain resolved December 3:00pm Essential hypertension inactive Se pt2024 3:00pm History of coronary artery bypass graft x 3 February, inactive January 07, 2025 3:00pm HLD (hyperlipidemia) inactive Dec 3:00pm PAD (peripheral artery disease) inactive January 07, 2025 3:00pm Thickened endometrium acute Sep 2024 10:45am [facility] Work Phone: 1(408) 942-313706-02-2025 Radiology Diagnostic study note [facility] Imaging Services [address], [place] [address] L/S Spine Min 4 Views MR#: [id number] Acct: [id number] Name: CHRISTY FRANCIS Rep #: [id number] : 1950 F 74 From: Adrianna Serrano MD PCP: Dr. Marielos Perla, Status: REG CLI Study:L/S Spine Min 4 Views Date of Exam: 09/18/24 Exam# [id number] Ordering Dr: Ra javier Mckeon [employer]NAGER-C PROCEDURE: L/S SPINE MIN 4 VIEWS 09/18/2024 REASON FOR EXAM: PAIN, SCIATICA TECHNIQUE: Four views of the lumbar spine COMPARISON: None FINDINGS: There are 5 [id number] lumbar-type vertebral bodies. The pars are not [...] JOHNATHON Mckeon; Dr. Marielos Perla DO ~ Avian Keeper: Signed [facility]02-17-2025 Evaluation note* Diagnosis Onset Date Resolution Status Admit Date Essential hypertension chronic Fe bruary 2024 10:41am History of coronary artery bypass graft x 3 February, chronic June 05, 2024 10:41am HLD (hyperlipidemia) chronic Febr uary 2024 10:41am PAD (peripheral artery disease) chronic June 05, 025 10:41am Shortness of breath chronic u kristine2024 10:41am [facility] Work Phone: 1(878) 469-298211-04-2024 [facility] Medical Records Department [address] [place] [address] Discharge Summary 02/21/24 1153 MR#: [id number] Acct: [id number] Name: CHRISTY FRANCIS Rep #: [id number] : 1950 74 From: Kaushik Castro MD PCP: Dr. Marielos Perla DO Status:ADM BRIAN Location: [place] [id number] Providers Date of Admission: 02/19/24 Date of [...] Pain: Patient placed on a monitored bed [place] had so far been ruled out with [...] mg tablet,delayed release 81 mg PO DAILY [facility] nitroglycerin 0.4 mg sublingual tablet [...] 30.1, MCHC 32.7, RDW (more content not included)...[facility]11-01-2019 Evaluation note* Diagnosis Onset Date Resolution Status Chest pain acute Essential hypertension acute History of coronary artery bypass graft x February, acute HLD (hyperlipidemia) chronic PAD (peripheral artery disease) [place] Work Phone: 1(770) 292-619311-01-2019 Evaluation note* Diagnosis Onset Date Resolution Status Chest pain acute Essential hypertension acute History of coronary artery bypass graft x February, acute HLD (hyperlipidemia) chronic PAD (peripheral artery disease) chronic Essential hypertension acute History of coronary artery bypass graft x February, acute Palpitations acute HLD (hyperlipidemia) chronic PAD (peripheral artery disease) [place] Work Phone: 1(384) 550-477111-01-2019 Evaluation note* Diagnosis Onset Date Resolution Status Admit Date Severe left ventricular systolic dysfunction (LVSD) acute November 02, 2024 10:11am Essential hypertension chronic Ju 2024 10:11am History of coronary artery bypass graft x February, chronic November 02, 2024 10:11am HLD (hyperlipidemia) chronic November 02, 2024 10:11am PAD (peripheral artery disease) chronic November 02, 2024 10:11am [facility] Work Phone: Consult note Author Jorge Anderson [facility] Note Date/Time January 08, 2025 4:48pm [facility] Medical Records Department [address] [place] [address] Consultation - Cardiology 01/08/25 0652 MR#: [id number] Acct: [id number] Name: CHRISTY FRANCIS Rep #:[id number] : 1950 74 From: Jorge Anderson MD PCP: Dr. Marielos Perla, DO Status:DIS BRIAN Location: [place] [address] Assessment & Plan Assessment/Plan (1) Chest pain: PLAN: She presents with chest discomfort which is suggestive of unstable angina. My recommendation at this time especially with her last stress test within the last year is to proceed with a left heart catheterization. Depending on the findings further recommendations will be made. (2) History of coronary artery bypass graft x 3: PLAN: She is status post coronary bypass surgery x 3 with a known occlusion of the saphenous vein graft to the obtuse marginal branch. Will reevaluate the others for further therapeutic measures. (3) Essential hypertension: PLAN: She does have a history of hypertension her blood pressure appears to be well-controlled at this time. (4) HLD (hyperlipidemia): QUALIFIERS: Hyperlipidemia type: unspecified Qualified Code(s): E78.5 - Hyperlipidemia, unspecified PLAN: Her lipid profile is excellent at this particular time. (5) PAD (peripheral artery disease): PLAN: She does have peripheral vascular disease but is not experiencing any claudication symptoms at this particular time. Will review her medications. HPI Consult Data Date of Consult: 01/08/25 HPI Narrative HPI Narrative: CHRISTY FRANCIS, is a 74 F who presents to the emergency room with chest discomfort. She says that this has been described as tightness across her chest. She had experienced similar symptoms when she was seen in our office. However she tellsme that the above symptomatology appears to be getting worse and more frequent and she is having some of it at rest. In the emergency room her EKG demonstrated sinus rhythm with no acute changes. Cardiac enzymes were minimallyelevated. She has a history of coronary artery bypass surgery with a GIRALDO to the LAD saphenous vein graft to obtuse marginal branch, and saphenous vein graftto the right coronary artery. In addition she has hyperlipidemia hypertension peripheral vascular disease. She did undergo a stress test in February 2024 which demonstrated no evidence of ischemia. She has lost some weight on her GLP-1 she unfortunately continues to use some tobacco products albeit less than she was doing before. Her last catheterization in 2021 demonstrated the patent GIRALDO to the LAD and the saphenous vein graft to the posterior descending artery. The graft to the obtuse marginal branch was occluded. [facility] Medical History Severe left ventricular systolic dysfunction (LVSD) Palpitations Right rotator cuff tear Trigger finger of both hands Carpal tunnel syndrome on both sides FHx: cholecystectomy History of left heart catheterization (LHC) (~06/03/21) Essential hypertension Mechanical loosening of prosthetic knee Atherosclerosis of [place] coronary artery of [place] heart without angina pectoris PAD (peripheral artery disease) HLD (hyperlipidemia) Type II diabetes mellitus Home Medications ?Medication ?Instructions ?Recorded ?Last Taken ?Type aspirin 81 mg tablet,delayed 81 mg PO DAILY heart heal th 12/15/13 01/07/25 History release duloxetine 60 mg capsule,delayed 60 mg PO DAILY mental health 08/20/22 01/07/25 History release allopurinol 300 mg tablet 300 mg PO BID gout 11/05/23 01/07/25 History cilostazol 100 mg tablet 100 mg PO BID anti platelet 11/05/23 01/07/25 History oxycodone-acetaminophen 5 mg-325 1 tab PO TID PRN PRN pain 02/19/24 02/03/24 History mg tablet rosuvastatin 10 mg tablet See Rx Instructions .Route 1 01/06/25 Rx .COMPLEX cholesterol #90 TABLETS furosemide 40 mg tablet 40 mg PO DAILY diuretic #90 TABLETS 06/19/24 01/07/25 Rx glimepiride 4 mg tablet 4 mg PO BID 11/02/24 5 History insulin aspar prt-insulin aspart 20 unit subcut QAM di abetes 11/02/24 01/07/25 History 100 unit/mL (70-30) subcutaneous soln (Novolog Mix 70-30 U-100 Insuln) nitroglycerin 0.4 mg sublingual 0.4 mg sublingual Q5-1 5M PRN chest 11/02/24 Unknown Rx tablet pain #25 tabs tirzepatide 10 mg/0.5 mL 10 mg subcut .every week Unknown History subcutaneous pen injector (May) metoprolol tartrate 50 mg tablet 50 mg PO BID blood pr essure #180 12/11/24 01/07/25 Rx tabs isosorbide mononitrate 60 mg 60 mg PO BID 01/07/25 History tablet,extended release 24 hr losartan 25 mg tablet 25 mg PO DAILY 01/07/2512/19 History omeprazole 20 mg capsule,delayed 20 mg PO DAILY 01/07/25 History release Allergy/AdvReac Type Severity Reaction Status Date / Time cefazolin Allergy Shortness Verified 01/07/25 12:23 of breath codeine Allergy Shortness Verified 01/07/25 12:23 of breath morphine Allergy Other Verified 01/07/25 12:23 naloxone (Naloxone) Allergy Shortness Verified 01/07/25 12:23 of breath pentazocine Allergy Shortness Verified 01/07/25 12:23 of breath pentazocine lactate (From Allergy Shortness Verified 01/07/25 12:23 Talwin) of breath atorvastatin AdvReac Severe Severe Verified 01/07/25 12:23 myalgias acetaminophen (From Tylenol) AdvReac Nausea Verified 01/07/25 12:23 Family History Mother Heart disease Surgical History History of cholecystectomy History of coronary artery bypass graft x 3 (~02/27/19) History of prosthetic unicompartmental arthroplasty of left knee Social History Smoking Status: Light Smoker (<10/day) alcohol intake: current alcohol intake frequency: holidays/special occasions only substance use type: does not use caffeine: Yes Type: coffee Number of servings: 3 ROS Constitutional Constitutional: Reports fatigue, malaise and weakness; Denies anorexia, chills or fever(s) Eyes Eyes: Denies change in vision ENT HEENT: Denies dysphagia or headache(s) Cardiovascular Cardiovascular: Reports chest pain; Denies claudication, dyspnea on exertion, edema, lightheadedness, orthopnea, palpitations, paroxysmal nocturnal dyspnea, rapid heart rate or syncope Respiratory/Chest Respiratory/Chest: Denies cough, excessive phlegm production, productive cough, shortness of breath at rest or shortness of breath with exertion Gastrointestinal Gastrointestinal: Denies abdominal pain, diarrhea, nausea or vomiting Genitourinary Genitourinary: Denies difficulty urinating Neurologic Neurologic: Denies confusion, dizziness, focal weakness, headache(s), numbness, seizures or syncope Psychiatric Psychiatric: Denies anxiety or depression Physical Exam Const alert, oriented x3 and no apparent distress General Appearance: cooperative HEENT hearing grossly normal bilaterally Head and Scalp: atraumatic Eyes EOMs intact bilaterally Neck General: normal visual inspection Chest inspection of chest normal and palpation of chest normal Resp normal respiratory effort Auscultation: clear to auscultation bilaterally Cardio regular rate, regular rhythm, S1 normal heart sound and S2 normal heart sound Jugular Venous Distention: JVD GI normal to inspection, nondistended, normoactive bowel sounds Extremity normal capillary refill and no pedal edema Peripheral Pulses: Yes pulses 2+ throughout and femoral pulses present Skin no rashes or lesions noted Neuro oriented x3 and CN's II-XII intact bilaterally Psych Appearance: grossly normal and appropriate Objective Data Vital Signs: Vital Signs Temp Pulse Resp BP Pulse Ox O2 Del Method 98.3 F 90 16 143/69 H 94 Room Air 01/08/25 03:50 01/08/25 06:03 01/08/25 03:50 01/08/25 06:03 01/08/25 03:50 01/08/25 03:50 Oxygen Delivery Method Room Air Weight: 165 lb 9.074 oz Body Mass Index (BMI) 30.2 Intake & Output: Intake and Output for Last 24 Hours 01/06/25 01/07/25 01/08/25 23:59 23:59 23:59 Intake Total 23.51 / 23.51 Balance 23.51 / 23.51 Lab / Micro Data 01/08/25 04:49 01/07/25 12:32 Labs: Laboratory Results - last 24 hr 01/07/25 12:32: WBC 11.9 H 01/07/25 12:32: WBC Cancelled, Corrected WBC Cancelled, RBC 4.22 01/07/25 12:32: RBC Cancelled, Hgb 13.4 01/07/25 12:32: Hgb Cancelled, Hct 40.1 01/07/25 12:32: Hct Cancelled, MCV 95.0 01/07/25 12:32: MCV Cancelled, MCH 31.8 01/07/25 12:32: MCH Cancelled, MCHC 33.4 01/07/25 12:32: MCHC Cancelled, RDW Std Deviation 53.1 H 01/07/25 12:32: RDW Std Deviation Cancelled, RDW Coeff of Dede 15.2 H 01/07/25 12:32: RDW Coeff of Dede Cancelled, Plt Count 312 01/07/25 12:32: Plt Count Cancelled, MPV 11.0 01/07/25 12:32: MPV Cancelled, Immature Gran % (Auto) 0.300 01/07/25 12:32: Immature Gran % (Auto) Cancelled, Neut % (Auto) 70.0 01/07/25 12:32: Neut % (Auto) Cancelled, Lymph % (Auto) 14.8 L 01/07/25 12:32: Lymph % (Auto) Cancelled, Drew % (Auto) 9.1 01/07/25 12:32: Drew % (Auto) Cancelled, Eos % (Auto) 5.2 H 01/07/25 12:32: Eos % (Auto) Cancelled, Baso % (Auto) 0.6 01/07/25 12:32: Baso % (Auto) Cancelled, Absolute Neuts (auto) 8.4 H 01/07/25 12:32: Absolute Neuts (auto) Cancelled, Absolute Lymphs (auto) 1.76 01/07/25 12:32: Absolute Lymphs (auto) Cancelled, Total Counted Cancelled, Neutrophils % (Manual) Cancelled, Band Neutrophils % Cancelled, Lymphocytes % (Manual) Cancelled, Monocytes % (Manual) Cancelled, Eosinophils % (Manual) Cancelled, Basophils % (Manual) Cancelled, Metamyelocytes % Cancelled, Myelocytes % Cancelled, Promyelocytes % Cancelled, Blast Cells % Cancelled, Plasma Cell % (Manual) Cancelled, Other Cells % Cancelled, Nucleated RBC % 0 01/07/25 12:32: Nucleated RBC % Cancelled, Nucleated RBCs/100 WBC Cancelled, Differential Comment Cancelled, Diff Path Review Cancelled, Hypersegmented NeutsCancelled, Atypical Lymphocytes Cancelled, Reactive Lymphocytes Cancelled, Smudge Cells Cancelled, Toxic Granulation Cancelled, Toxic Vacuolation Cancelled, Dohle Bodies Cancelled, Isatu Rods Cancelled, Platelet Estimate Cancelled, Plt Morphology Comment Cancelled, RBC Morphology Cancelled 01/07/25 12:32: RBC Morphology Cancelled, Polychromasia Cancelled, HypochromasiaCancelled, Basophilic Stippling Cancelled, Anisocytosis Cancelled, Microcytosis Cancelled, Macrocytosis Cancelled, Spherocytes Cancelled, Sickle Cells Cancelled, Target Cells Cancelled, Tear Drop Cells Cancelled, Ovalocytes Cancelled, Stomatocytes Cancelled, [place] Bodies Cancelled, Johan Cells Cancelled, Bite Cells Cancelled, Crenated Cell Cancelled, Acanthocytes (Spur) Cancelled, Rouleaux Cancelled, Schistocytes Cancelled, D-Dimer Quant (PE/DVT) 0.83 H*, Sodium 138, Potassium 4.0, Chloride 99, Carbon Dioxide 25.3, Anion Gap 13, BUN 29 H, Creatinine 1.26 H, Estim Creat Clear Calc 37.37 L, Est GFR (MDRD) Non-Af 45 L, BUN/Creatinine Ratio 22.7 H, Glucose 186 H, Calcium 9.5, Troponin THigh Sens 27 H 01/07/25 14:31: PT 14.2, INR 1.1, APTT 26.9, Troponin T Hi Sens 2 Hr 28 H 01/07/25 16:20: Troponin T Hi Sens 4Hr 27 H 01/07/25 21:57: POC Glucose 194 H 01/08/25 04:49: WBC 10.4, RBC 3.99 L, Hgb 12.2, Hct 37.3, MCV 93.5, MCH 30.6, MCHC 32.7, RDW Std Deviation 51.2 H, RDW Coeff of Dede 15.0 H, Plt Count 282, MPV11.0, Immature Gran % (Auto) 0.500, Neut % (Auto) 68.5, Lymph % (Auto) 13.2 L, Drew % (Auto) 10.8 H, Eos % (Auto) 6.3 H, Baso % (Auto) 0.7, Absolute Neuts (auto) 7.1, Absolute Lymphs (auto) 1.37, Nucleated RBC % 0 Cardiology Labs/Tests 01/07/25 12:32: WBC 11.9 H 01/07/25 12:32: WBC Cancelled, Corrected WBC Cancelled, RBC 4.22 01/07/25 12:32: RBC Cancelled, Hgb 13.4 01/07/25 12:32: Hgb Cancelled, Hct 40.1 01/07/25 12:32: Hct Cancelled, MCV 95.0 01/07/25 12:32: MCV Cancelled, MCH 31.8 01/07/25 12:32: MCH Cancelled, MCHC 33.4 01/07/25 12:32: MCHC Cancelled, Plt Count 312 01/07/25 12:32: Plt Count Cancelled, MPV 11.0 01/07/25 12:32: MPV Cancelled, Immature Gran % (Auto) 0.300 01/07/25 12:32: Immature Gran % (Auto) Cancelled, Neut % (Auto) 70.0 01/07/25 12:32: Neut % (Auto) Cancelled, Lymph % (Auto) 14.8 L 01/07/25 12:32: Lymph % (Auto) Cancelled, Drew % (Auto) 9.1 01/07/25 12:32: Drew % (Auto) Cancelled, Eos % (Auto) 5.2 H 01/07/25 12:32: Eos % (Auto) Cancelled, Baso % (Auto) 0.6 01/07/25 12:32: Baso % (Auto) Cancelled, Absolute Neuts (auto) 8.4 H 01/07/25 12:32: Absolute Neuts (auto) Cancelled, Total Counted Cancelled, Neutrophils % (Manual) Cancelled, Band Neutrophils % Cancelled, Lymphocytes % (Manual) Cancelled, Monocytes % (Manual) Cancelled, Eosinophils % (Manual) Cancelled, Basophils % (Manual) Cancelled, Metamyelocytes % Cancelled, Myelocytes % Cancelled, Promyelocytes % Cancelled, Blast Cells % Cancelled, Plasma Cell % (Manual) Cancelled, Other Cells % Cancelled, Nucleated RBC % 0 01/07/25 12:32: Nucleated RBC % Cancelled, D-Dimer Quant (PE/DVT) 0.83 H*, Sodium 138, Potassium 4.0, Chloride 99, Carbon Dioxide 25.3, Anion Gap 13, BUN 29 H, Creatinine 1.26 H, Est GFR (MDRD) Non-Af 45 L, BUN/Creatinine Ratio 22.7 H, Glucose 186 H, Calcium 9.5 01/07/25 14:31: PT 14.2, INR 1.1, APTT 26.9 01/08/25 04:49: WBC 10.4, RBC 3.99 L, Hgb 12.2, Hct 37.3, MCV 93.5, MCH 30.6, MCHC 32.7, Plt Count 282, MPV 11.0, Immature Gran % (Auto) 0.500, Neut % (Auto) 68.5, Lymph % (Auto) 13.2 L, Drew % (Auto) 10.8 H, Eos % (Auto) 6.3 H, Baso % (Auto) 0.7, Absolute Neuts (auto) 7.1, Nucleated RBC % 0 Rhythm: EKG: ECHO: Stress Test: Cardiac Cath: PCI: CT Surgery: Holter monitor: EPS: PPM: CXR: Chest CT Scan: Radiography Diagnostic Testing: Radiology Impression Chest X-Ray 01/07/25 12:40 IMPRESSION: NO ACUTE FINDINGS. Reading Location: [facility] Chest CTA 01/07/25 13:24 IMPRESSION: No significant abnormality Reading Location: [facility] LINK Risk Score for UA/STEMI Assesmment (YES = 1) Risk Stratification Applicable: Yes Age > or = 65: Yes > or = 3 CAD risk factors (HTN, Hypercholesterolemia, Diabetes, family hx, current smoker): Yes Known CAD (Stenosis > or = 50%): Yes ASA used in past 7 days: Yes Severe angina (> or = 2 episodes in 24 hrs): Yes EKG ST change > or = 0.5mm: No Positive cardiac markers: Yes Score LINK Risk Score of mortality/ recurrent ischemic event over the next 14 days: 6- 7 = 40.9% - HIGH RISK 01/09/25 0635 <Electronically signed by Jorge Anderson MD> Cosigner Signature (if applicable): CC: Dr. Marielos Perla, DO~ Signed [facility] Work Phone: Consult note Author Cecy Cheatham [facility] Note Date/Time January 08, 2025 3:16pm [facility] Medical Records Department [address] [place] [address] Counseling Note - Pharmacy 01/08/25 4846 MR#: [id number] Acct: [id number] Name: CHRISTY FRANCIS Rep #:[id number] : 1950 74 From: Cecy Cheatahm PCP: Dr. Marielos Perla DO Status:ADM BRIAN Y Location: [place] [address] Pharmacy [facility] Counseling Pharmacy Service has performed discharge medication reconciliation and counseling for this patient. 1. RANOLAZINE 500MG PO BID 2. LOSARTAN AND METOPROLOL DOSE CHANGES The patient's discharge medication list was reviewed for discrepancies and discrepancies were resolved. The patient was counseled on the following discharge medications and changes in medications for homegoing were reviewed. The Reason for Use, instructions for use, and potential side effects were reviewed for all new medications. The patient's questions regarding all of their medications were answered. The patient was able to verbally demonstrate an understanding of their dischargemedications. Medications at Discharge Home Medications aspirin 81 mg tablet,delayed release 81 mg PO DAILY heart health 12/15/13 duloxetine 60 mg capsule,delayed release 60 mg PO DAILY mental health 08/20/22 allopurinol 300 mg tablet 300 mg PO BID gout 11/05/23 cilostazol 100 mg tablet 100 mg PO BID anti platelet 11/05/23 oxycodone-acetaminophen 5 mg-325 mg tablet 1 tab PO TID PRN PRN pain 02/19/24 rosuvastatin 10 mg tablet See Rx Instructions .Route .COMPLEX cholesterol #90 TABLETS 04/17/24 furosemide 40 mg tablet 40 mg PO DAILY diuretic #90 TABLETS 06/19/24 glimepiride 4 mg tablet 4 mg PO BID diabetes 11/02/24 insulin aspar prt-insulin aspart 100 unit/mL (70-30) subcutaneous soln (Novolog Mix 70-30 U-100 Insuln) 20 unit subcut QAM diabetes 11/02/24 nitroglycerin 0.4 mg sublingual tablet 0.4 mg sublingual Q5-15M PRN chest pain #25 tabs 11/02/24 tirzepatide 10 mg/0.5 mL subcutaneous pen injector (Mounjaro) 10 mg subcut .every week diabetes 11/02/24 isosorbide mononitrate 60 mg tablet,extended release 24 hr 60 mg PO BID heart 01/07/25 omeprazole 20 mg capsule,delayed release 20 mg PO DAILY reflux 01/07/25 losartan 25 mg tablet 12.5 mg (1/2 x 25 mg) PO DAILY #15 tabs 01/08/25 metoprolol tartrate 50 mg tablet 75 mg (1.5 x 50 mg) PO BID blood pressure #180 tabs 01/08/25 ranolazine 500 mg tablet,extended release,12 hr 500 mg PO BID #60 tabs 01/08/25 01/08/25 1516 <Electronically signed by Cecy Cheatham> Date _ Cecy Cheatham Cosigner Signature (if applicable): Date CC: ~ Signed [facility] Work Phone: Discharge summary Author Rupali Lott [facility] Note Date/Time January 08, 2025 2:20pm [facility] Medical Records Department [address] [place] [id number] Discharge Summary 01/08/25 1357 MR#: [id number] Acct: [id number] Name: CHRISTY FRANCIS Rep #:[id number] : 1950 74 From: Rupali Lott DO PCP: Dr. Marielos Perla DO Status:ADM BRIAN Location: [place] [address] Providers Date of Admission: 01/07/25 Date of Discharge: 01/08/25 Primary Care Physician: Dr. Marielos Perla DO Consultations 01/07/25 17:56 Consult: Cardiology Routine Consulting Provider: Jorge Anderson Reason for Consult: chest pain EMERGENT Consult: No MD Notified: Yes Date Notified: 01/07/25 Time Notified: 17:56 Method of Notification: Text Reason For Visit: CHEST PAIN Diagnosis Discharge Diagnosis (1) Chest pain: Status: Acute Code(s): R07.9 - Chest pain, unspecified (2) History of coronary artery bypass graft x 3: Status: Chronic Code(s): Z95.1 - Presence of aortocoronary bypass graft (3) Essential hypertension: Status: Chronic Code(s): I10 - Essential (primary) hypertension (4) HLD (hyperlipidemia): Status: Chronic Code(s): E78.5 - Hyperlipidemia, unspecified Qualifiers: Hyperlipidemia type: unspecified Qualified Code(s): E78.5 - Hyperlipidemia, unspecified (5) PAD (peripheral artery disease): Status: Chronic Code(s): I73.9 - Peripheral vascular disease, unspecified Medications at Discharge Home Medications aspirin 81 mg tablet,delayed release 81 mg PO DAILY heart health 12/15/13 duloxetine 60 mg capsule,delayed release 60 mg PO DAILY mental health 08/20/22 allopurinol 300 mg tablet 300 mg PO BID gout 11/05/23 cilostazol 100 mg tablet 100 mg PO BID anti platelet 11/05/23 oxycodone-acetaminophen 5 mg-325 mg tablet 1 tab PO TID PRN PRN pain 02/19/24 rosuvastatin 10 mg tablet See Rx Instructions .Route .COMPLEX cholesterol #90 TABLETS 04/17/24 furosemide 40 mg tablet 40 mg PO DAILY diuretic #90 TABLETS 06/19/24 glimepiride 4 mg tablet 4 mg PO BID 11/02/24 insulin aspar prt-insulin aspart 100 unit/mL (70-30) subcutaneous soln (Novolog Mix 70-30 U-100 Insuln) 20 unit subcut QAM diabetes 11/02/24 nitroglycerin 0.4 mg sublingual tablet 0.4 mg sublingual Q5-15M PRN chest pain #25 tabs 11/02/24 tirzepatide 10 mg/0.5 mL subcutaneous pen injector (Mounjaro) 10 mg subcut .every week 11/02/24 isosorbide mononitrate 60 mg tablet,extended release 24 hr 60 mg PO BID 01/07/25 omeprazole 20 mg capsule,delayed release 20 mg PO DAILY 01/07/25 losartan 25 mg tablet 12.5 mg (1/2 x 25 mg) PO DAILY #15 tabs 01/08/25 metoprolol tartrate 50 mg tablet 75 mg (1.5 x 50 mg) PO BID blood pressure #180 tabs 01/08/25 ranolazine 500 mg tablet,extended release,12 hr 500 mg PO BID #60 tabs 01/08/25 Hospital Course Operations None Procedures Cardiac catheterization, EKG and - (Chest x-ray/CTA chest) Summary of Care Provided Minutes Spent on Discharge: 37 Hospital Course: Mrs. Francis is a 74-year-old white female who presented to the emergency department at [facility] on 01/07/2025 with a chief complaint of chest pain. She has an extensive cardiac history with previous CABG in 2019 at [facility] as well as PVD, HTN/HPL, and DM-2. She complained of indigestion several weeks prior to admission and had chest pain that started around 9 AM on the morning of admission. She denied any concomitant shortness of breath, nausea, diaphoresis, or vomiting. She had been compliant with all of her home medications. Vital signs on presentation showed a temperature of 97.3, heart rate 116, respiratory was 18, blood pressure was 128/98, and pulse ox was 98% onroom air. CBC showed a mild leukocytosis white count 11.9 but an unremarkable differential. Chemistry panel showed normal electrolytes with a BUN of 29 and aserum creatinine of 1.26. A D-dimer was obtained and found to be elevated at 0.83 and her initial troponin was 27. Follow-up troponin was found to be 28 on delta and a 4-hour troponin of 27. EKG was unremarkable for any acute ST-T wavechanges concerning for acute ischemia. Chest x-ray showed no acute findings. CTA of her chest showed no significant abnormalities. She was admitted under observation status with consultation to cardiology. Cardiology evaluated patient and given her history and symptoms was taken for cardiac catheterization. Cardiac catheterization revealed GIRALDO to LAD being patent, SVGto the PDA was patent, and SVG to the obtuse marginal branch was occluded which appears to be chronic, ostial left main coronary artery disease was noted as well as left circumflex but both were stable compared to previous. Aggressive medical therapy was recommended and she is to continue home medication with addition of Ranexa for symptoms. Patient did report she is having intermittent tachycardia with heart rates in the 115's at home. Given this we increased her beta-jessica from 50 to 75 mg p.o. twice daily and decreased her losartan from 25 to 12.5 mg p.o. twice daily. I do feel she needs to continue her ARB given her diabetes for renal protection and this is why we did not discontinue this medication completely and made adjustments. I have asked her to follow-up with her primary care physician within the next week and with cardiology within the next month. Prescriptions for her increased dose of metoprolol, decrease dose of losartan, and Ranexa were sent to local pharmacy prior to discharge. Patientwas discharged home on 01/08/2025 in stable condition. Discharge diagnoses: Chest pain-resolved Elevated troponin secondary to decreased renal clearance CKD stage IIIb Leukocytosis-resolved Chronic eosinophilia Essential hypertension Hyperlipidemia DM-2 PVD History of gout GERD HFrEF-recovered LV Osteoarthritis Obesity Tobacco abuse Physical Exam Const alert, oriented x3, no apparent distress, no limitations and well nourished; Negative for average body habitus or healthy appearing Constitutional Narrative: Very pleasant, older, white female, sitting up in bed, daughter at bedside, appears comfortable, nontoxic, very pleasant General Appearance: cooperative, comfortable, well kempt and well developed Exam Limitations: no limitations Nutritional Appearance: obese HEENT normocephalic, head/scalp atraumatic, hearing grossly normal bilaterally and moist oral mucous membranes HEENT Narrative: Mallampati 3-4, no thrush Eyes conjunctivae normal Eyes Narrative: No scleral icterus Neck supple Neck Narrative: Neck is short thick, trachea midline Resp normal respiratory effort, no retractions, no use of accessory muscles and clearto auscultation bilaterally Resp Narrative: Diffusely diminished but clear Auscultation: Negative for rales, rhonchi or wheezes Cardio regular rate, regular rhythm, S1 normal heart sound, S2 normal heart sound, no murmurs, no rub and no gallops GI normal to inspection, nondistended, normoactive bowel sounds, soft to palpation and non-tender Extremity no clubbing, cyanosis or edema Extremity Narrative: 1+ pedal pulses, 2+ left radial pulse, compression device right radial artery status postcardiac catheterization Skin skin turgor normal, no jaundice, no petechiae and no mottling Neuro oriented x3, moves all extremities and no focal motor deficits Speech: speech normal Psych affect normal Psych Narrative: Very pleasant, eye contact is good and patient interacts appropriately Weight / BMI Weight Weight: 75.1 kg Body Mass Index (BMI) 30.2 ABG / Lab / Microbiology Data 01/08/25 04:49 01/07/25 12:32 Laboratory: Laboratory Results - last 24 hr 01/07/25 12:32: WBC Cancelled, Corrected WBC Cancelled, RBC Cancelled, Hgb Cancelled, Hct Cancelled, MCV Cancelled, MCH Cancelled, MCHC Cancelled, RDW Std Deviation Cancelled, RDW Coeff of Dede Cancelled, Plt Count Cancelled, MPV Cancelled, Immature Gran % (Auto) Cancelled, Neut % (Auto) Cancelled, Lymph % (Auto) Cancelled, Drew % (Auto) Cancelled, Eos % (Auto) Cancelled, Baso % (Auto)Cancelled, Absolute Neuts (auto) Cancelled, Absolute Lymphs (auto) Cancelled, Total Counted Cancelled, Neutrophils % (Manual) Cancelled, Band Neutrophils % Cancelled, Lymphocytes % (Manual) Cancelled, Monocytes % (Manual) Cancelled, Eosinophils % (Manual) Cancelled, Basophils % (Manual) Cancelled, Metamyelocytes% Cancelled, Myelocytes % Cancelled, Promyelocytes % Cancelled, Blast Cells % Cancelled, Plasma Cell % (Manual) Cancelled, Other Cells % Cancelled, Nucleated RBC % Cancelled, Nucleated RBCs/100 WBC Cancelled, Differential Comment Cancelled, Diff Path Review Cancelled, Hypersegmented Neuts Cancelled, Atypical Lymphocytes Cancelled, Reactive Lymphocytes Cancelled, Smudge Cells Cancelled, Toxic Granulation Cancelled, Toxic Vacuolation Cancelled, Dohle Bodies Cancelled, Isatu Rods Cancelled, Platelet Estimate Cancelled, Plt Morphology Comment Cancelled, RBC Morphology Cancelled 01/07/25 12:32: RBC Morphology Cancelled, Polychromasia Cancelled, HypochromasiaCancelled, Basophilic Stippling Cancelled, Anisocytosis Cancelled, Microcytosis Cancelled, Macrocytosis Cancelled, Spherocytes Cancelled, Sickle Cells Cancelled, Target Cells Cancelled, Tear Drop Cells Cancelled, Ovalocytes Cancelled, Stomatocytes Cancelled, [place] Bodies Cancelled, Johan Cells Cancelled, Bite Cells Cancelled, Crenated Cell Cancelled, Acanthocytes (Spur) Cancelled, Rouleaux Cancelled, Schistocytes Cancelled 01/07/25 14:31: PT 14.2, INR 1.1, APTT 26.9, Troponin T Hi Sens 2 Hr 28 H 01/07/25 16:20: Troponin T Hi Sens 4Hr 27 H 01/07/25 21:57: POC Glucose 194 H 01/08/25 04:49: WBC 10.4, RBC 3.99 L, Hgb 12.2, Hct 37.3, MCV 93.5, MCH 30.6, MCHC 32.7, RDW Std Deviation 51.2 H, RDW Coeff of Dede 15.0 H, Plt Count 282, MPV11.0, Immature Gran % (Auto) 0.500, Neut % (Auto) 68.5, Lymph % (Auto) 13.2 L, Drew % (Auto) 10.8 H, Eos % (Auto) 6.3 H, Baso % (Auto) 0.7, Absolute Neuts (auto) 7.1, Absolute Lymphs (auto) 1.37, Nucleated RBC % 0 01/08/25 06:41: POC Glucose 189 H 01/08/25 11:17: POC Glucose 169 H Radiography Diagnostic Testing: Radiology Impression Chest CTA 01/07/25 13:24 IMPRESSION: No significant abnormality Reading Location: [facility] D/C Instructions Discharge Activity: Return to Normal Activity Lifting Restrictions: Avoid lifting greater than 10 pounds with the right hand for the next 72 hr DC O2, CPAP, BIPAP Needs Home O2 Discharge instructions: No Meaningful Use Info Meaningful Use Meaningful Use Diagnoses (Choose all that apply): None applicable Discharge Plan Admission Admit Date/Time: 01/07/25 15:00 Primary Reason for Your Visit: Chest pain Attending Provider: Rupali Lott Primary Care Provider: Marielos Perla Consulting Providers: Jorge Anderson; Maritza Suresh Instructions Additional Instructions / Restrictions: 1. Please notice the changes in your blood pressure medicine with a decrease inyour losartan from 25 mg to 12.5 mg and an increase in your metoprolol from 50 mg to 75 mg. I did this to make sure your blood pressure does not drop too low and hopefully help with your heart rate. Discharge Orders/Prescriptions Prescriptions: New ranolazine 500 mg Tablet Extended Release 12 Hr 500 mg PO BID Qty: 60 1RF Continued duloxetine 60 mg capsule,delayed release(DR/EC) 60 mg PO DAILY insulin asp prt-insulin aspart [Novolog Mix 70-30 U-100 Insuln] 100 unit/mL (70- 30) solution 20 unit subcut QAM Patient Comments: 20-25 cilostazol 100 mg tablet 100 mg PO BID allopurinol 300 mg tablet 300 mg PO BID glimepiride 4 mg tablet 4 mg PO BID Mounjaro 10 mg/0.5 mL pen injector 10 mg subcut .every week Patient Comments: [NO ORIGINAL SIG] nitroglycerin 0.4 mg tablet, sublingual 0.4 mg sublingual Q5-15M PRN (Reason: chest pain) Qty: 25 3RF Rx Instructions: do not exceed 3 doses per episode aspirin 81 MG tablet 81 mg PO DAILY isosorbide mononitrate 60 mg tablet extended release 24 hr 60 mg PO BID omeprazole 20 mg capsule,delayed release(DR/EC) 20 mg PO DAILY oxycodone-acetaminophen 5-325 mg tablet 1 tab PO TID PRN PRN (Reason: pain) rosuvastatin 10 mg tablet See Rx Instructions .ROUTE .COMPLEX Qty: 90 3RF Dose Instruction: TAKE 1 TABLET BY MOUTH EVERY DAY Rx Instructions: TAKE 1 TABLET BY MOUTH EVERY DAY furosemide 40 mg tablet 40 mg PO DAILY Qty: 90 3RF Changed losartan 25 mg tablet 12.5 mg PO DAILY Qty: 15 0RF metoprolol tartrate 50 mg tablet 75 mg PO BID Qty: 180 1RF Referrals / Follow Up: Jorge Anderson MD [Med Staff - Active Staff, Cardiology] - Within 1 Month Marielos Perla DO [Primary Care Provider, Family Practice] - Within 1 Week Disposition Disposition (needs filled in before D/C Order can be placed): Home, Self Care Charges/Coding Visit Charges Inpatient E&M: 18090 Disch Hosp >30min 01/08/25 1420 <Electronically signed by Rupali Lott DO> Cosigner Signature (if applicable): CC: Dr. Jorge Anderson MD; Dr. Rupali Lott DO; Dr. Marielos Perla DO~ Signed [facility] Work Phone: Evaluation noteNo assessment information available [facility] Work Phone: Evaluation note* Diagnosis Onset Date Resolution Status Right rotator cuff tear acut e [facility] Work Phone: History and physical note Author Maritza Suresh [facility] Note Date/Time January 07, 2025 5:21pm [facility] Medical Records Department [address] [place] [address] H&P Exam - Hospitalist 01/07/25 1436 MR#: [id number] Acct: [id number] Name: CHRISTY FRANCIS Rep #:[id number] : 1950 74 From: Maritza Suresh MD PCP: Dr. Marielos Perla, DO Status:ADM BRIAN Location: [place] [address] HPI - General General Date of Admission: 01/07/25 Date of Service: 01/07/25 Chief Complaint: chest pain HPI Narrative CHRISTY FRANCIS, is a 74 F with an extensive PMH as outlined who presents via the ED on 01/07/2025 with a complaint of chest pain. The chest pain started at around 9 AM on the morning of admission. Her past medical history includes a history of CABG in 2019 at [facility] as well as peripheral artery disease, hyperlipidemia and type 2 diabetes mellitus. She also admitted to [facility] for several weeks prior to admission. She denied shortness of breath, nausea, vomiting or any other symptoms. Review of systems otherwise negative. She is on baby aspirin and took it on the day of admission. Vitals in the ED were blood pressure 116/61, pulse rate of 97, respiratory rate of 14 and she was saturating at 98% on room air. CBC showed hemoglobin of 13.4,WBC of 11.9 and platelets of 312. D-dimer was elevated at 0.83. Chemistry showed sodium of 138 with potassium of 4 and bicarb of 25.3. Anion gap was 13. Creatinine was 1.26. EKG showed no acute ST changes. CTA of the chest showed no evidence of PE. Chest x- ray showed no acute cardiopulmonary findings. Initial troponin was 27. She has been admitted to be managed for chest pain rule out ACS. [facility] Medical History Severe left ventricular systolic dysfunction (LVSD) Palpitations Right rotator cuff tear Trigger finger of both hands Carpal tunnel syndrome on both sides FHx: cholecystectomy History of left heart catheterization (LHC) (~06/03/21) Essential hypertension Mechanical loosening of prosthetic knee Atherosclerosis of [place] coronary artery of [place] heart without angina pectoris PAD (peripheral artery disease) HLD (hyperlipidemia) Type II diabetes mellitus Home Medications ?Medication ?Instructions ?Recorded ?Last Taken ?Type aspirin 81 mg tablet,delayed 81 mg PO DAILY heart heal th 12/15/13 06/03/21 History release duloxetine 60 mg capsule,delayed 60 mg PO DAILY mental health 08/20/22 Unknown History release allopurinol 300 mg tablet 300 mg PO BID gout 11/05/23 Unknown History cilostazol 100 mg tablet 100 mg PO BID anti platelet 11/05/23 Unknown History oxycodone-acetaminophen 5 mg-325 1 tab PO TID PRN PRN pain 02/19/24 02/03/24 History mg tablet rosuvastatin 10 mg tablet See Rx Instructions .Route 1 Unknown Rx .COMPLEX cholesterol #90 TABLETS furosemide 40 mg tablet 40 mg PO DAILY diuretic #90 TABLETS 06/19/24 Unknown Rx glimepiride 4 mg tablet 4 mg PO BID 11/02/24 Unknown History insulin aspar prt-insulin aspart 20 unit subcut QAM di abetes 11/02/24 Unknown History 100 unit/mL (70-30) subcutaneous soln (Novolog Mix 70-30 U-100 Insuln) nitroglycerin 0.4 mg sublingual 0.4 mg sublingual Q5-1 5M PRN chest 11/02/24 Unknown Rx tablet pain #25 tabs tirzepatide 10 mg/0.5 mL 10 mg subcut .every week Unknown History subcutaneous pen injector (May) metoprolol tartrate 50 mg tablet 50 mg PO BID blood pr essure #180 12/11/24 Unknown Rx tabs isosorbide mononitrate 60 mg 60 mg PO BID 01/07/25 Unk nown History tablet,extended release 24 hr losartan 25 mg tablet 25 mg PO DAILY 01/07/25 Unkn own History omeprazole 20 mg capsule,delayed 20 mg PO DAILY Unknown History release Allergy/AdvReac Type Severity Reaction Status Date / Time cefazolin Allergy Shortness Verified 01/07/25 12:23 of breath codeine Allergy Shortness Verified 01/07/25 12:23 of breath morphine Allergy Other Verified 01/07/25 12:23 naloxone (Naloxone) Allergy Shortness Verified 01/07/25 12:23 of breath pentazocine Allergy Shortness Verified 01/07/25 12:23 of breath pentazocine lactate (From Allergy Shortness Verified 01/07/25 12:23 Flakita) of breath atorvastatin AdvReac Severe Severe Verified 01/07/25 12:23 myalgias acetaminophen (From Tylenol) AdvReac Nausea Verified 01/07/25 12:23 Family History Mother Heart disease Surgical History History of cholecystectomy History of coronary artery bypass graft x 3 (~02/27/19) History of prosthetic unicompartmental arthroplasty of left knee Social History Smoking Status: Light Smoker (<10/day) alcohol intake: current alcohol intake frequency: holidays/special occasions only substance use type: does not use caffeine: Yes Type: coffee Number of servings: 3 ROS Constitutional Constitutional: Reports fatigue, malaise and weakness; Denies anorexia, chills or fever(s) Eyes Eyes: Denies change in vision ENT HEENT: Denies dysphagia or headache(s) Cardiovascular Cardiovascular: Reports chest pain; Denies claudication, dyspnea on exertion, edema, lightheadedness, orthopnea, palpitations, paroxysmal nocturnal dyspnea, rapid heart rate or syncope Respiratory/Chest Respiratory/Chest: Denies cough, excessive phlegm production, productive cough, shortness of breath at rest or shortness of breath with exertion Gastrointestinal Gastrointestinal: Denies abdominal pain, diarrhea, nausea or vomiting Genitourinary Genitourinary: Denies difficulty urinating Neurologic Neurologic: Denies confusion, dizziness, focal weakness, headache(s), numbness, seizures or syncope Psychiatric Psychiatric: Denies anxiety or depression Vital Signs Vital Signs Vital Signs: 01/07/25 12:23 01/07/25 13:04 01/07/25 13:06 Temperature 97.3 F L Temperature Source Temporal Pulse Rate 106 H 100 Respiratory Rate 18 21 H Respiratory Effort Short of Breath Blood Pressure 128/98 H 121/57 H Blood Pressure Mean 108 76 Pulse Ox 98 96 Oxygen Delivery Method Room Air 01/07/25 14:00 Temperature Temperature Source Pulse Rate 97 Respiratory Rate 24 H Respiratory Effort Blood Pressure 116/61 Blood Pressure Mean 78 Pulse Ox 98 Oxygen Delivery Method Weight Weight: 167 lb 6.4 oz Body Mass Index (BMI) 30.6 Physical Exam Const alert, oriented x3 and no apparent distress General Appearance: cooperative HEENT normocephalic, head/scalp atraumatic, moist oral mucous membranes and oropharynxnormal Mouth: oral and palatal mucosa normal Neck No supple Resp Resp Narrative: mildly diminished breath sounds bibasally, no wheezes or crackles. On room air. Cardio regular rate, regular rhythm, S1 normal heart sound, S2 normal heart sound and no murmurs GI normal to inspection, nondistended, normoactive bowel sounds, soft to palpation,non-tender and non-distended Extremity normal to inspection, full ROM and no clubbing, cyanosis or edema Neuro oriented x3, CN's II-XII intact bilaterally, moves all extremities and no focal motor deficits Sensorium / Orientation: awake and alert Motor Exam: strength 5/5 throughout Psych affect normal Results Lab / Micro Data 01/07/25 12:32 01/07/25 12:32 Labs: Laboratory Results - last 24 hr 01/07/25 12:32: WBC 11.9 H, RBC 4.22, Hgb 13.4, Hct 40.1, MCV 95.0, MCH 31.8, MCHC 33.4, RDW Std Deviation 53.1 H, RDW Coeff of Dede 15.2 H, Plt Count 312, MPV11.0, Immature Gran % (Auto) 0.300, Neut % (Auto) 70.0, Lymph % (Auto) 14.8 L, Drew % (Auto) 9.1, Eos % (Auto) 5.2 H, Baso % (Auto) 0.6, Absolute Neuts (auto) 8.4 H, Absolute Lymphs (auto) 1.76, Nucleated RBC % 0, D-Dimer Quant (PE/DVT) 0.83 H*, Sodium 138, Potassium 4.0, Chloride 99, Carbon Dioxide 25.3, Anion Gap 13, BUN 29 H, Creatinine 1.26 H, Estim Creat Clear Calc 37.37 L, Est GFR (MDRD) Non-Af 45 L, BUN/Creatinine Ratio 22.7 H, Glucose 186 H, Calcium 9.5, Troponin THigh Sens 27 H Imaging Radiology Impression Chest X-Ray 01/07/25 12:40 IMPRESSION: NO ACUTE FINDINGS. Reading Location: [facility] Assessment & Plan Assessment/Plan (1) Chest pain: PLAN: Plan #Chest pain to rule out ACS * admit to PCU with telemetry * admitted with a complaint of chest pain. * Initial troponin was 2026. Repeat is pending. EKG showed no acute ST changes. * She does have a history of CAD s/p CABG back in 2019 * On aspirin and high intensity statin. Started on heparin drip per cardiology. * For stress test tomorrow per cardiology. #CAD s/p CABG x 3: On aspirin and high intensity statin. Also on Imdur and metoprolol as well as cilostazol #GERD: On PPI #Benign essential hypertension: On metoprolol #Hyperlipidemia: On statin #Type 2 diabetes mellitus: Hold oral meds. Insulin sliding scale. Accu-Cheks ACHS. Also on tirzepatide. I will hold. Nicotine dependence: Patient says she quit smoking but recently had a in the family and active tobacco smoking. She smokes about 5 cigarettes a day. Counseled to quit. Nicotine patch 14 g daily as needed DVT prophylaxis: lovenox Code status: full code * Patient counseled extensively about different types of CODE STATUS including full code, DNR CCA and DNR CCA. She initial did not want to have CPR or intubation but after she was counseled that it did not mean she would be kept on machines forever, she was finally agreeable to being full code. This was all done in presence of her [id number] Lynda Francis who is a nurse in the hospital. * Patient elects to be full code. * Total [id number] time 16 minutes. Charges/Coding Visit Charges Inpatient E&M: 00431 Init Hosp L3 Procedures Hospitalists Procedures: 99707 Advncd Care Plan 30 Min 01/07/25 1721 <Electronically signed by Maritza Suresh MD> Cosigner Signature (if applicable): CC: Dr. Marielos Perla DO; Dr. Maritza Suresh MD~ Signed [facility] Work Phone: Hospital Discharge instructions Additional Instructions X-rays of your shoulder knee showed no broken bones. Rest, ice, and use the Percocet as needed. After that you can take Tylenol or Motrin. If symptoms are not improving in 1 week please see your primary care doctor for reevaluation.[facility] Work Phone: Hospital Discharge instructionsAdditional Instructions 1. Please notice the changes in your blood pressure medicine with a decrease in your losartan from 25 mg to 12.5 mg and an increase in your metoprolol from 50 mg to 75 mg. I did this to make sure your blood pressure does not drop too low and hopefully help with your heart rate. [facility]: [facility] note Author Jorge Anderson [facility] Note Date/Time January 08, 2025 12:53pm [facility] Medical Records Department [address] [place] [address] Progress Note - Cardiology 01/08/25 1250 MR#: [id number] Acct: [id number] Name: CRHISTY FRANCIS Rep #:[id number] : 1950 74 From: Jorge Anderson MD PCP: Dr. Marielos Perla, DO Status:ADM BRIAN Location: [place] [address] Subjective Subjective Patient seen and evaluated. Underwent cardiac catheterization today Objective Data Vital Signs: Vital Signs Temp Pulse Resp BP Pulse Ox O2 Del Method 97.4 F L 79 18 105/64 92 Room Air 01/08/25 07:45 01/08/25 07:47 01/08/25 07:45 01/08/25 07:45 01/08/25 07:45 01/08/25 07:56 Oxygen Delivery Method Room Air Weight: 165 lb 9.074 oz Body Mass Index (BMI) 30.2 Intake & Output: Intake and Output for Last 24 Hours 01/06/25 01/07/25 01/08/25 23:59 23:59 23:59 Intake Total 23.51 / 23.51 Balance 23.51 / 23.51 Lab / Micro Data 01/08/25 04:49 01/07/25 12:32 Labs: Laboratory Results - last 24 hr 01/07/25 12:32: WBC 11.9 H 01/07/25 12:32: WBC Cancelled, Corrected WBC Cancelled, RBC 4.22 01/07/25 12:32: RBC Cancelled, Hgb 13.4 01/07/25 12:32: Hgb Cancelled, Hct 40.1 01/07/25 12:32: Hct Cancelled, MCV 95.0 01/07/25 12:32: MCV Cancelled, MCH 31.8 01/07/25 12:32: MCH Cancelled, MCHC 33.4 01/07/25 12:32: MCHC Cancelled, RDW Std Deviation 53.1 H 01/07/25 12:32: RDW Std Deviation Cancelled, RDW Coeff of Dede 15.2 H 01/07/25 12:32: RDW Coeff of Dede Cancelled, Plt Count 312 01/07/25 12:32: Plt Count Cancelled, MPV 11.0 01/07/25 12:32: MPV Cancelled, Immature Gran % (Auto) 0.300 01/07/25 12:32: Immature Gran % (Auto) Cancelled, Neut % (Auto) 70.0 01/07/25 12:32: Neut % (Auto) Cancelled, Lymph % (Auto) 14.8 L 01/07/25 12:32: Lymph % (Auto) Cancelled, Drew % (Auto) 9.1 01/07/25 12:32: Drew % (Auto) Cancelled, Eos % (Auto) 5.2 H 01/07/25 12:32: Eos % (Auto) Cancelled, Baso % (Auto) 0.6 01/07/25 12:32: Baso % (Auto) Cancelled, Absolute Neuts (auto) 8.4 H 01/07/25 12:32: Absolute Neuts (auto) Cancelled, Absolute Lymphs (auto) 1.76 01/07/25 12:32: Absolute Lymphs (auto) Cancelled, Total Counted Cancelled, Neutrophils % (Manual) Cancelled, Band Neutrophils % Cancelled, Lymphocytes % (Manual) Cancelled, Monocytes % (Manual) Cancelled, Eosinophils % (Manual) Cancelled, Basophils % (Manual) Cancelled, Metamyelocytes % Cancelled, Myelocytes % Cancelled, Promyelocytes % Cancelled, Blast Cells % Cancelled, Plasma Cell % (Manual) Cancelled, Other Cells % Cancelled, Nucleated RBC % 0 01/07/25 12:32: Nucleated RBC % Cancelled, Nucleated RBCs/100 WBC Cancelled, Differential Comment Cancelled, Diff Path Review Cancelled, Hypersegmented NeutsCancelled, Atypical Lymphocytes Cancelled, Reactive Lymphocytes Cancelled, Smudge Cells Cancelled, Toxic Granulation Cancelled, Toxic Vacuolation Cancelled, Dohle Bodies Cancelled, Isatu Rods Cancelled, Platelet Estimate Cancelled, Plt Morphology Comment Cancelled, RBC Morphology Cancelled 01/07/25 12:32: RBC Morphology Cancelled, Polychromasia Cancelled, HypochromasiaCancelled, Basophilic Stippling Cancelled, Anisocytosis Cancelled, Microcytosis Cancelled, Macrocytosis Cancelled, Spherocytes Cancelled, Sickle Cells Cancelled, Target Cells Cancelled, Tear Drop Cells Cancelled, Ovalocytes Cancelled, Stomatocytes Cancelled, [place] Bodies Cancelled, Edwards Cells Cancelled, Bite Cells Cancelled, Crenated Cell Cancelled, Acanthocytes (Spur) Cancelled, Rouleaux Cancelled, Schistocytes Cancelled, D-Dimer Quant (PE/DVT) 0.83 H*, Sodium 138, Potassium 4.0, Chloride 99, Carbon Dioxide 25.3, Anion Gap 13, BUN 29 H, Creatinine 1.26 H, Estim Creat Clear Calc 37.37 L, Est GFR (MDRD) Non-Af 45 L, BUN/Creatinine Ratio 22.7 H, Glucose 186 H, Calcium 9.5, Troponin THigh Sens 27 H 01/07/25 14:31: PT 14.2, INR 1.1, APTT 26.9, Troponin T Hi Sens 2 Hr 28 H 01/07/25 16:20: Troponin T Hi Sens 4Hr 27 H 01/07/25 21:57: POC Glucose 194 H 01/08/25 04:49: WBC 10.4, RBC 3.99 L, Hgb 12.2, Hct 37.3, MCV 93.5, MCH 30.6, MCHC 32.7, RDW Std Deviation 51.2 H, RDW Coeff of Dede 15.0 H, Plt Count 282, MPV11.0, Immature Gran % (Auto) 0.500, Neut % (Auto) 68.5, Lymph % (Auto) 13.2 L, Drew % (Auto) 10.8 H, Eos % (Auto) 6.3 H, Baso % (Auto) 0.7, Absolute Neuts (auto) 7.1, Absolute Lymphs (auto) 1.37, Nucleated RBC % 0 01/08/25 06:41: POC Glucose 189 H 01/08/25 11:17: POC Glucose 169 H Cardiology Labs/Tests 01/07/25 12:32: WBC 11.9 H 01/07/25 12:32: WBC Cancelled, Corrected WBC Cancelled, RBC 4.22 01/07/25 12:32: RBC Cancelled, Hgb 13.4 01/07/25 12:32: Hgb Cancelled, Hct 40.1 01/07/25 12:32: Hct Cancelled, MCV 95.0 01/07/25 12:32: MCV Cancelled, MCH 31.8 01/07/25 12:32: MCH Cancelled, MCHC 33.4 01/07/25 12:32: MCHC Cancelled, Plt Count 312 01/07/25 12:32: Plt Count Cancelled, MPV 11.0 01/07/25 12:32: MPV Cancelled, Immature Gran % (Auto) 0.300 01/07/25 12:32: Immature Gran % (Auto) Cancelled, Neut % (Auto) 70.0 01/07/25 12:32: Neut % (Auto) Cancelled, Lymph % (Auto) 14.8 L 01/07/25 12:32: Lymph % (Auto) Cancelled, Drew % (Auto) 9.1 01/07/25 12:32: Drew % (Auto) Cancelled, Eos % (Auto) 5.2 H 01/07/25 12:32: Eos % (Auto) Cancelled, Baso % (Auto) 0.6 01/07/25 12:32: Baso % (Auto) Cancelled, Absolute Neuts (auto) 8.4 H 01/07/25 12:32: Absolute Neuts (auto) Cancelled, Total Counted Cancelled, Neutrophils % (Manual) Cancelled, Band Neutrophils % Cancelled, Lymphocytes % (Manual) Cancelled, Monocytes % (Manual) Cancelled, Eosinophils % (Manual) Cancelled, Basophils % (Manual) Cancelled, Metamyelocytes % Cancelled, Myelocytes % Cancelled, Promyelocytes % Cancelled, Blast Cells % Cancelled, Plasma Cell % (Manual) Cancelled, Other Cells % Cancelled, Nucleated RBC % 0 01/07/25 12:32: Nucleated RBC % Cancelled, D-Dimer Quant (PE/DVT) 0.83 H*, Sodium 138, Potassium 4.0, Chloride 99, Carbon Dioxide 25.3, Anion Gap 13, BUN 29 H, Creatinine 1.26 H, Est GFR (MDRD) Non-Af 45 L, BUN/Creatinine Ratio 22.7 H, Glucose 186 H, Calcium 9.5 01/07/25 14:31: PT 14.2, INR 1.1, APTT 26.9 01/08/25 04:49: WBC 10.4, RBC 3.99 L, Hgb 12.2, Hct 37.3, MCV 93.5, MCH 30.6, MCHC 32.7, Plt Count 282, MPV 11.0, Immature Gran % (Auto) 0.500, Neut % (Auto) 68.5, Lymph % (Auto) 13.2 L, Drew % (Auto) 10.8 H, Eos % (Auto) 6.3 H, Baso % (Auto) 0.7, Absolute Neuts (auto) 7.1, Nucleated RBC % 0 Rhythm: EKG: ECHO: Stress Test: Cardiac Cath: PCI: CT Surgery: Holter monitor: EPS: PPM: CXR: Chest CT Scan: Radiography Diagnostic Testing: Radiology Impression Chest X-Ray 01/07/25 12:40 IMPRESSION: NO ACUTE FINDINGS. Reading Location: [facility] Chest CTA 01/07/25 13:24 IMPRESSION: No significant abnormality Reading Location: [facility] Physical Exam Const alert, oriented x3 and no apparent distress General Appearance: cooperative HEENT hearing grossly normal bilaterally Head and Scalp: atraumatic Eyes EOMs intact bilaterally Neck General: normal visual inspection Chest inspection of chest normal and palpation of chest normal Resp normal respiratory effort Auscultation: clear to auscultation bilaterally Cardio regular rate, regular rhythm, S1 normal heart sound and S2 normal heart sound Jugular Venous Distention: JVD GI normal to inspection, nondistended, normoactive bowel sounds Extremity normal capillary refill and no pedal edema Peripheral Pulses: Yes pulses 2+ throughout and femoral pulses present Skin no rashes or lesions noted Neuro oriented x3 and CN's II-XII intact bilaterally Psych Appearance: grossly normal and appropriate Assessment & Plan Assessment/Plan (1) Chest pain: PLAN: She presents with chest discomfort which is suggestive of unstable angina. my recommendation at this time especially with her last stress test within the last year is to proceed with a left heart catheterization. Depending on the findings further recommendations will be made. Addendum: Cardiac catheterization demonstrated the following: GIRALDO to the LAD is patent. Saphenous vein graft to the posterior descending artery is patent. Saphenous vein graft to obtuse marginal branch is occluded previously. Ostial left main coronary artery disease is noted. Left circumflex artery system appears to be stable compared to the previous. My recommendation at this time would be aggressive medical therapy, smoking cessation. No cardiac intervention to be undertaken at this time. (2) History of coronary artery bypass graft x 3: PLAN: She is status post coronary bypass surgery x 3 with a known occlusion of the saphenous vein graft to the obtuse marginal branch. Will reevaluate the others for further therapeutic measures. (3) Essential hypertension: PLAN: She does have a history of hypertension her blood pressure appears to be well-controlled at this time. (4) HLD (hyperlipidemia): QUALIFIERS: Hyperlipidemia type: unspecified Qualified Code(s): E78.5 - Hyperlipidemia, unspecified PLAN: Her lipid profile is excellent at this particular time. (5) PAD (peripheral artery disease): PLAN: She does have peripheral vascular disease but is not experiencing any claudication symptoms at this particular time. Will review her medications. 01/08/25 9494 <Electronically signed by Jorge Anderson MD> Cosigner Signature (if applicable): CC: ~ Signed [facility] Work Phone: Progress note Author Lamar Olivera [facility] Note Date/Time January 10, 2025 11:16am [facility]'s [address], [address] [place] [address] OFFICE VISIT Date of Service: 01/10/25 MR#: [id number] Acct: [id number] Name: CHRISTY FRANCIS Rep #: [id number] : 1950 Provider: JOHNATHON Olivera Age/Sex: 74/F Location: [facility] Status: Signed Intake Vital Signs 11/02/24 10:17 01/07/25 16:04 01/10/25 10:46 Height 5 ft 2 in 5 ft 2 in 5 ft 2 in Weight: 167 lb BMI 30.5 BP 125/74 H Blood Pressure Location Rt brachial Position Sitting Pulse 98 Pulse Source Monitor Intake Visit Reasons: NU (CLAIRE) 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 Required: No Accompanied by: Self Is patient in pain?: No Allergies cefazolin Allergy (Verified 01/10/25 11:00) Shortness of breath codeine Allergy (Verified 01/10/25 11:00) Shortness of breath morphine Allergy (Verified 01/10/25 11:00) Other naloxone (Naloxone) Allergy (Verified 01/10/25 11:00) Shortness of breath pentazocine Allergy (Verified 01/10/25 11:00) Shortness of breath pentazocine lactate (From Talwin) Allergy (Verified 01/10/25 11:00) Shortness of breath atorvastatin Adverse Reaction (Severe, Verified 01/10/25 11:00) Severe myalgias acetaminophen (From Tylenol) Adverse Reaction (Verified 01/10/25 11:00) Nausea Medications ?Medication ?Instructions ?Recorded ?Confirmed ?Type aspirin 81 mg tablet,delayed 81 mg PO DAILY heart heal th 12/15/13 01/10/25 History release duloxetine 60 mg capsule,delayed 60 mg PO DAILY mental health 08/20/22 01/10/25 History release allopurinol 300 mg tablet 300 mg PO BID gout 11/05/23 01/10/25 History cilostazol 100 mg tablet 100 mg PO BID anti platelet 11/05/23 01/10/25 History oxycodone-acetaminophen 5 mg-325 1 tab PO TID PRN PRN pain 02/19/24 01/10/25 History mg tablet rosuvastatin 10 mg tablet See Rx Instructions .Route 1 01/10/25 Rx .COMPLEX cholesterol #90 TABLETS furosemide 40 mg tablet 40 mg PO DAILY diuretic #90 TABLETS 06/19/24 01/10/25 Rx glimepiride 4 mg tablet 4 mg PO BID diabetes 5 01/10/25 History insulin aspar prt-insulin aspart 20 unit subcut QAM di abetes 11/02/24 01/10/25 History 100 unit/mL (70-30) subcutaneous soln (Novolog Mix 70-30 U-100 Insuln) nitroglycerin 0.4 mg sublingual 0.4 mg sublingual Q5-1 5M PRN chest 11/02/24 01/10/25 Rx tablet pain #25 tabs tirzepatide 10 mg/0.5 mL 10 mg subcut .every week anabela betes 11/02/24 01/10/25 History subcutaneous pen injector (May) isosorbide mononitrate 60 mg 60 mg PO BID heart 01/08/25 History tablet,extended release 24 hr omeprazole 20 mg capsule,delayed 20 mg PO DAILY reflux 01/07/25 01/10/25 History release losartan 25 mg tablet 12.5 mg (1/2 x 25 mg) PO GAYE LY #15 01/08/25 01/10/25 Rx tabs metoprolol tartrate 50 mg tablet 75 mg (1.5 x 50 mg) P O BID blood 01/08/25 01/10/25 Rx pressure #180 tabs ranolazine 500 mg tablet,extended 500 mg PO BID #60 ta bs 01/08/25 01/10/25 Rx release,12 hr Post menopausal: Yes PFSH PFSH Medical History Severe left ventricular systolic dysfunction (LVSD) Palpitations Right rotator cuff tear Trigger finger of both hands Carpal tunnel syndrome on both sides FHx: cholecystectomy History of left heart catheterization (LHC) (~06/03/21) Essential hypertension Mechanical loosening of prosthetic knee Atherosclerosis of [place] coronary artery of [place] heart without angina pectoris PAD (peripheral artery disease) HLD (hyperlipidemia) Type II diabetes mellitus Surgical History History of cholecystectomy History of coronary artery bypass graft x 3 (~02/27/19) History of prosthetic unicompartmental arthroplasty of left knee Family History Mother Heart disease Social History (Updated 01/10/25 @ 10:53 by Kaylen Medrano) current occupational status: retired current occupation: Retired. [employer]riela[employer]arqu[employer]. Smoking Status: Light Smoker (<10/day) alcohol intake: current alcohol intake frequency: holidays/special occasions only substance use type: does not use caffeine: Yes Type: coffee Number of servings: 3 do you feel safe at home: Yes additional social history: . History 2 Elective abortions Hx Para 2 Spontaneous abortions Hx # Term Pregnancies Ectopic pregnancies Hx # Pregnancies Multiple births # of living children Past Pregnancies Del. Date Name GA/Weeks Outcome Route Bth Weight Gen Labor Lgth Anesthesia Del Locatn Provider FOB 09/27/70 Germán 10/11/73 Jean-Claude [facility] HPI EMB (BEECH BOTTOM) Details: CHRISTY FRANCIS is a 74 year old who presents for new patient discussion of thickened endometrial lining found on ultrasound of 6.6mm. She has had no vaginal bleeding. She was having lower right pelvic pain but has resolved. Sheis . Not sexually active. ROS Const Constitutional: Reports system reviewed and no additional complaints, except as documented Eyes Eyes: Reports system reviewed and no additional complaints, except as documented GI GI: Denies abdominal pain or change in bowel habits : Reports as per HPI Exam Const General: cooperative and no acute distress Orientation: oriented x3 General: bladder normal to palpation External Female Exam: normal external appearance and normal appearance of the urethra Urethra: normal appearance of the urethra Speculum Exam - Vagina: normal vaginal discharge, vagina atrophic, no lesions and nontender Speculum Exam - Cervix: normal appearance of the cervix Bimanual Exam- Vagina & Uterus: normal bimanual exam, uterine size normal, bladder normal to palpation, uterine shape normal, uterine mobility normal and non- tender Bimanual Exam- Adnexa, other: normal adnexae, no masses and non-tender Office Procedures Endometrial Biopsy Endometrial Biopsy Test: Yes Not Applicable Consent Signed: Yes Time out checklist: patient, procedure, site marked/identified, positioning of patient, supplies available, allergies confirmed and team agrees on procedure Time out time: 11:03 tenaculum used: Yes dilator used: No Details: Cervix prepped with betadine and pipelle inserted 7cm into uterus without complication. Specimen obtained and sent to lab for analysis. All instruments removed from vagina without complications. Excellent hemostasis noted. Coding Level of Care Code Attention Barry Diagnoses Thickened endometrium R93.89 CPT Codes Endometrial Biopsy (79495) Assessment and Plan Assessment and Plan (1) Thickened endometrium: Status: Acute Comment: 6.6mm. no vag bleeding. EMB pending Orders: Orders Endometrial Biopsy Today SCRN MAMM (CAD)W/LAVON BILAT Today Plan Reviewed S&S infection Call pathology If normal than can just monitor Mammogram ordered 01/10/25 1116 <Electronically signed by Lamar juárez FIELD TRAINING MANAGER FIELD TRAINING MANAGER-C> Date _ Lamar Olivera FIELD TRAINING MANAGER FIELD TRAINING MANAGER-C Cosigner Signature: Date (if applicable) CC: Dr. Marielos Perla, DO ~ [facility] Work Phone: Reason for referral (narrative)No reason for referral information availableWMarietta Osteopathic Clinic Work Phone: Discharge Instructions * Discharge Instr - Lab* Yamilet Nogueira, YUE - 03/02/2019 3:13 PM EST Your physician has ordered skilled home care services for you. Your home care will be provided by: [facility] [phone] * Additional Instructions* Jose Maria Lukas, GIZZARD SKIN REMOVER - CONVERTER SKIMMER - 03/03/2019 When to call the surgeon: If any symptoms concern you, call us: -Dr. Taylor/Dr. Medina's office -Phone number [phone] -[address] Notify us if the following occur: [...] Everywhere. * Coronary Artery Bypass Graft: Post-op (Algerian) documented in this encounter History of Present [...] medications would be and if reasonable with [facility] if not then will [...] Date 03/03/19 0000 - 03/03/19 2359 Shift 1923-9507 1554-8193 7439-5622 24 Hour Total INTAKE P.O. 120 120 [...] gms)/meal Problem List: Principal Problem: CAD in [place] artery Active Problems: S/P CABG x 3 Hyperkalemia Diabetes mellitus (HCC) Hypertension HFrEF (heart failure with reduced ejection fraction) (HCC) Resolved Problems: * No resolved hospital problems. [...] 03/02/2019 3:28 PM EST Physical Therapy Facility/Department: [facility] Daily Treatment Note [...] of Arthritis, Blood circulation, collateral, CAD in [place] artery, Diabetes mellitus ([facility]), HFrEF (heart failure with reduced ejection fraction) ([facility]), and Hypertension. has a past surgical history [...] Minutes: 27 Minutes(FAx1, GA x1 ) Clint Gresham SPTRina Baker, MINIATURE MODEL MAKER * Oren Adams MD - 03/02/2019 9:21 [...] []Injected [x]Non-Injected / Pinnae []Normal []Other/ Dentitian [][place] Teeth []Dentures Oral Mucosa [][place] [x]Moist []Dry/ Oral ETT []Present [x]Absent Neck: [...] [x]Absent/ FERGUSON ([]RUE []RLE []LUE []LLE) Neurologic: NOORVIK []Yes [x]No Corneal reflexes []Present []Absent / [...] ABG: Recent Labs 02/27/19 1545 PHART 7.274* [id number] 46.0* PO2ART 270.6* [id number] 98.8 CBC: Recent Labs 03/01/19 0015 03/02/19 [...] Portable Ordering Physician GRANT TAYLOR Accession Number [id number] CPT4 Codes 28416 () Reason For Exam sob Report CLINICAL INFORMATION: Shortness of breath. Status post open heart surgery. CHEST X-RAY, PORTABLE, 0537 hours: An AP portable view is compared to the prior examination of previous day. There is no change in the mediastinal or left lower hemithorax chest tubes or right internal jugular [place]ce[place]-Jose introducer sheath. There is stable slightly limited [...] avoid intravascular fluid depletion Case discussed with FIELD TRAINING MANAGER from [facility], (Minoo) Critical care will sign [...] minutes so far today. * Minoo Encinas, GIZZARD SKIN REMOVER - WINDOWS DESKTOP SUPPORT - 03/02/2019 4:05 AM EST Cardiothoracic Surgery [...] with home health Planned Disposition: patient from [facility]; home when medically stable [x] Home with [...] of Arthritis, Blood circulation, collateral, CAD in [place] artery, Diabetes mellitus (HCC), HFrEF (heart failure with reduced ejection fraction) ([facility]), and Hypertension. 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 Goals and/or treatment plan was established in collaboration with patient/family/other representatives. Heather Zhang OTR/L * oJs Baker, MINIATURE MODEL MAKER - 03/01/2019 1:48 PM EST Physical Therapy Facility/Department: [facility] Daily Treatment Note [...] of Arthritis, Blood circulation, collateral, CAD in [place] artery, Diabetes mellitus (HCC), HFrEF (heart failure with reduced ejection fraction) (HCC), and Hypertension. has a past surgical history [...] on own throughout day. G-Code OutComes Score -[facility] Score -[facility] Inpatient Mobility Raw Score : 15 (03/01/191346) [facility] Inpatient T-Scale Score : 39.45 (03/01/191346) [...] Conrad MD - 03/01/2019 10:53 AM EST [facility] [address] [place] [address] Dept: [phone] Loc: [phone] Visit Date: 03/01/2019 HPI: Christy Francis is [...] Date Arthritis Blood circulation, collateral CAD in [place] artery 02/22/2019 Diabetes mellitus (HCC) HFrEF (heart failure with reduced ejection fraction) (HCC) Hypertension Past Surgical History: Procedure Laterality Date CHOLECYSTECTOMY JOINT REPLACEMENT Current Facility-Administered Medications Medication Dose Route Frequency Provider Last Rate Last Dose heparin (porcine) injection 5,000 Units 5,000 Units Subcutaneous BID DIANA Dial CNP 5,000 Units at 03/01/19 0856 metoprolol tartrate (LOPRESSOR) tablet 25 mg 25 mg Oral BID Apr DIANA Moise CONVERTER SKIMMER 25 mg at 856 pantoprazole (PROTONIX) tablet 40 mg 40 mg Oral QAM AC Apr DIANA Moise - CONVERTER SKIMMER 40 mg at 03/01/19 0709 FLUoxetine (PROZAC) capsule 20 mg 20 mg Oral Daily Apr DIANA Moise CONVERTER SKIMMER 20 mg at 03/01/19 0856 0.45 % [...] Assessment: Type 2 DM with hyperglycemia with security system sales consultant insulin use s/p cabg 02/27 Will likely [...] Conrad MD * Minoo Encinas APRN - WINDOWS DESKTOP SUPPORT - 03/01/2019 9:51 AM EST Cardiothoracic Surgery [...] []Injected [x]Non-Injected / Pinnae []Normal []Other/ Dentitian [][place] Teeth []Dentures Oral Mucosa [][place] [x]Moist []Dry/ Oral ETT []Present [x]Absent Neck: [...] [x]Absent/ FERGUSON ([]RUE []RLE []LUE []LLE) Neurologic: NOORVIK []Yes [x]No Corneal reflexes []Present []Absent / [...] ABG: Recent Labs 02/27/19 1545 PHART 7.274* [id number] 46.0* PO2ART 270.6* L5DPCSLD 98.8 CBC: Recent Labs 02/28/19 0404 03/01/19 [...] Portable Ordering Physician GRANT TAYLOR Accession Number [id number] CPT4 Codes 88764 () Reason For Exam sob Report CLINICAL INFORMATION: Shortness of breath. Status post open heart surgery. CHEST X-RAY, PORTABLE, 0537 hours: An AP portable view is compared to the prior examination of previous day. There is no change in the mediastinal or left lower hemithorax chest tubes or right internal jugular Osce[place]-Jose introducer sheath. There is stable slightly limited [...] 35 minutes so far today. * Minoo Encinas APRN - WINDOWS DESKTOP SUPPORT - 03/01/2019 4:54 AM EST Cardiothoracic Surgery [...] Date 03/01/19 0000 - 03/01/19 2359 Shift 9736-0514 1199-8730 6469-9612 24 Hour Total INTAKE Shift Total(mL/kg) OUTPUT [...] with home health Planned Disposition: patient from [facility]; home when medically stable [x] Home with [...] mg Oral Daily Active Problems: CAD in [place] artery Diabetes mellitus (HCC) Hypertension HFrEF (heart failure with reduced ejection fraction) ([facility]) Resolved Problems: * No resolved hospital problems. [...] SR-ST 90-120s DONNELL: In process Last Echo: [facility] LVEF 45%. Mild MAC with mild MR Last stress test: [facility] NST Stress Induced Ischemia involving portions of [...] left. 8. Dispo - Pt lives in [place] and states she intends to follow up [...] up weekly Nutrition Assessment: Pt presents from [place] for evaluation for PCI vs CABG after presenting to [place] ED with chest pressure and having abnormal [...] High Nutrient Needs: Estimated Daily Total Kcal: 3484-9656 Estimated Daily Protein (g): 48-57 Estimated Daily [...] Asaf=19. Chest tubex3. Labs noted: ^BUN-25, ^potassium-7.0-->6.7, lejmomq-03-650, HgA1C on 02/25-10.3% Wound Type: Surgical Wound [...] confirm weight change, will continue to monitor [place] Body Wt: 105 lb (47.6 kg), % [place] Body 168% BMI Classification: BMI 30.0 - [...] 02/28/2019 12:03 PM EST Physical Therapy Facility/Department: [facility] Initial Assessment NAME: Christy Francis : 1950 Date of Service: 02/28/2019 Discharge Recommendations: Home independently Assessment Body structures, Functions, Activity limitations: Decreased strength;Decreased endurance;Decreased functional mobility ;Decreased safe awareness;Decreased balance Assessment: Pt admitted for Pod#1 CABG x 3. 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 Pt this date [...] of Arthritis, Blood circulation, collateral, CAD in [place] artery, Diabetes mellitus (HCC), HFrEF (heart failure with reduced ejection fraction) (HCC), and Hypertension. 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 Goals and/or treatment plan was established in collaboration with patient/family/other (specify). Mil Reddy PT * Liz Diaz, GIZZARD SKIN REMOVER - WINDOWS DESKTOP SUPPORT - 02/28/2019 11:20 AM EST ENDOCRINOLOGY PROGRESS NOTE Patient: Christy Francis Unit/Bed:[id number]/1HLU04 Date of : 1950 Admit date: 02/22/2019 [...] Assessment: Type 2 DM with hyperglycemia with security system sales consultant insulin use Lab Results Component Value Date LABA1C 10.3 (H) 02/25/2019 Multivessel CAD with Angina - [facility] on 02/22 concerning for multivessel disease - S/p CABG yesterday Plan: As outpatient prior to this admission: Veneer Stock Layer: None Diabetes Medications/regimen: Metformin 500 mg daily [...] []Injected [x]Non-Injected Pinnae [x]Normal []Other Oral Mucosa [x][place] [x]Moist []Dry Oral ETT []Present [x]Absent Neck: [...] [x]Absent FERGUSON ([x]RUE [x]RLE [x]LUE [x]LLE) Neurologic: NOORVIK []Yes [x]No Corneal reflexes []Present []Absent Plantar [...] prophylaxis Patient Active Problem List: CAD in [place] artery Diabetes mellitus (HCC) Hypertension HFrEF (heart failure with reduced ejection fraction) ([facility]) CHANTELL ÁLVAREZ MD * Lukas Moise APRN [...] I/O: Date 02/28/19 - 02/28/19 2359 Shift 9893-2282 0282-8616 6163-4831 24 Hour Total INTAKE I.V.(mL/kg/hr) 2220(3.5) 2220 [...] LIQUID; Problem List: Active Problems: CAD in [place] artery Diabetes mellitus (HCC) Hypertension HFrEF (heart failure with reduced ejection fraction) ([facility]) Resolved Problems: * No resolved hospital problems. [...] Initiative Log: - none to date * RoberthAlma ríos, QUOTER - 02/27/2019 10:06 PM EST The patient [...] EST Hospitalist Progress Note 02/27/2019 10:49 AM [phone]: Please page me for patient care issues. [phone]: Please page IMS night Hospitalist for any [...] mg Oral Daily LABS: CBC: Recent Labs 02/26/1913 WBC 8.3 RBC 4.88 HGB 14.9 HCT 44.0 MCV 90.3 RDW 13.1 PLT 205 BMP: Recent Labs 02/26/1913 02/27/19 0018 NA 136 138 K 5.1 [...] noon. Advance Directive: Full Code Discharge planning: PRICSILLA VIDAL DO Division of Hospitalist Medicine Inpatient Medical Services PAGER: [phone] * Sixto Salamanca MD - 02/26/2019 1:31 [...] Assessment: Type 2 DM with hyperglycemia with custodial insulin use Lab Results Component Value Date LABA1C 10.3 (H) 02/25/2019 Multivessel CAD with Angina - [facility] on 02/22 concerning for multivessel disease - Planning for possible CABG on Wednesday Plan: As outpatient prior to this admission: Veneer Stock Layer: None Diabetes Medications/regimen: Metformin 500 mg daily [...] 2-4 weeks after discharge * Ronda Carmona, DIANA - CONVERTER SKIMMER - 02/26/2019 11:23 AM EST Cardiothoracic Surgery Progress Note 02/26/2019 Subjective: Admit Date: 02/22/2019 Interval History: Transferred from [place](see consult note) Multivessel CAD plan for CABG [...] 33.46 kg/m I/O: Date 02/26/19 0000 - 02/26/192358 Shift 8515-1983 6322-3093 5940-0532 24 Hour Total INTAKE P.O. 240 240 [...] Specified Problem List: Active Problems: CAD in [place] artery Diabetes mellitus (HCC) Hypertension HFrEF (heart failure with reduced ejection fraction) ([facility]) Resolved Problems: * No resolved hospital problems. [...] tablet, 1 tablet,Oral, Q12H PRN, Ronda Carmona, GIZZARD SKIN REMOVER - CONVERTER SKIMMER, 1 tablet at 02/25/19 1613 insulin glargine (LANTUS) injection vial 25 Units, 25 Units, Subcutaneous, Nightly, Sixto Salamanca MD, 25 Units at 02/25/19 2120 insulin lispro (HUMALOG) injection vial 10 Units, 10 Units, Subcutaneous, TID WC, Sixto Salamanca MD, 10 Units at 02/26/19 0721 insulin lispro (HUMALOG) injection vial 0-12 Units, 0-12 Units, Subcutaneous, TID , Mil Pettit MD, 8 Units at 02/26/19 0722 atorvastatin (LIPITOR) tablet 80 mg, 80 mg, Oral, Nightly, Timmy Basilio MD, 80 mg at 02/25/19 211 sodium chloride flush 0.9 % injection 10 mL, 10 mL, Intravenous, 2 times per day, Brigido Conard MD, 10 mL at 02/26/19 0809 sodium [...] Brigido Conrad MD, 81 mg at 02/26/19 0801 escitalopram (LEXAPRO) tablet 10 mg, 10 mg, [...] Meds: insulin lispro 0.08 Units/kg Subcutaneous TID insulin glargine 16 Units Subcutaneous Nightly insulin [...] Assessment: Type 2 DM with hyperglycemia with custodial insulin use Lab Results Component Value Date LABA1C 10.3 (H) 02/25/2019 Multivessel CAD with Angina - [facility] on 02/22 concerning for multivessel disease - Planning for possible CABG on Wednesday Plan: As outpatient prior to this admission: Veneer Stock Layer: None Diabetes Medications/regimen: Metformin 500 mg daily [...] Follow up as outpatient after discharge: With WINDOWS DESKTOP SUPPORT Jolynn Stewart in 2-4 weeks after discharge * Ronda Carmona, GIZZARD SKIN REMOVER - CONVERTER SKIMMER - 02/25/2019 10:52 AM EST Cardiothoracic Surgery Progress Note 02/25/2019 Subjective: Admit Date: 02/22/2019 Interval History: Transferred from [place](see consult note) Multivessel CAD plan for CABG [...] BMI 33.27 kg/m I/O: Date 02/25/19 - 02/25/19 2359 Shift 6745-1507 3994-6951 6057-3851 24 Hour Total INTAKE P.O. 200 300 500 Shift Total(mL/kg) 200(2.5) 300(3.8) 500(6.3) OUTPUT Urine(mL/kg/hr) 1000(1.6) 400 1400 Shift Total(mL/kg) 1000(12.5) 400(5) 1400(17.5) Weight (kg) 79.9 79.9 79.9 79.9 Weights: Patient Vitals for the past 96 hrs (Last 3 readings): Weight 11/09/19 0609 176 lb 1.6 oz (79.9 kg) 02/24/19 0512 176 lb 8 oz (80.1 kg) 02/23/19 0625 175 lb 5 oz (79.5 kg) Labs: BMP: Recent Labs 02/23/19 06 NA 136 K 4.8 CL 106 CO2 21* BUN 24* CREATININE 1.03 GLUCOSE 288* . CBC: Recent Labs 02/23/19 06 WBC 8.6 HGB 15.1 PLT 212 Hepatic: Recent Labs 02/23/19 06 AST 49* ALT 53 BILITOT 0.5 ALKPHOS [...] CONTROL; Problem List: Active Problems: CAD in [place] artery Diabetes mellitus (HCC) Hypertension HFrEF (heart failure with reduced ejection fraction) ([facility]) Resolved Problems: * No resolved hospital problems. [...] 6 Units, 0.08 Units/kg, Subcutaneous, TID Mil MD, 6 Units at 02/24/19 1746 insulin glargine (LANTUS) injection vial 16 Units, 16 Units, Subcutaneous, Nightly, Shreyas Shaw DO, 16 Units at 02/24/19 2213 insulin lispro (HUMALOG) injection vial 0-12 Units, 0-12 Units, Subcutaneous, TID NOELLE, Mil Pettit MD, 6 Units at 02/24/19 1748 atorvastatin (LIPITOR) tablet 80 mg, 80 mg, Oral, Nightly, Timmy Basilio MD, 80 mg at 02/24/19 195 sodium chloride flush 0.9 % injection 10 [...] TBD Jayson Metzger MD * Lukas Moise, GIZZARD SKIN REMOVER - CONVERTER SKIMMER - 02/24/2019 2:54 PM EST Cardiothoracic Surgery Progress Note 02/24/2019 Subjective: Admit Date: 02/22/2019 Interval History: Transferred from [place](see consult note) Multivessel CAD plan for CABG [...] Date 02/24/19 0000 - 02/24/19 2359 Shift [id number] [id number] [id number] 24 Hour Total INTAKE P.O. 457 756 4399 Shift Total(mL/kg) 400(5) 720(9) 1120(14) OUTPUT Urine(mL/kg/hr) [...] CONTROL; Problem List: Active Problems: CAD in [place] artery Diabetes mellitus (HCC) Hypertension HFrEF (heart failure with reduced ejection fraction) ([facility]) Resolved Problems: * No resolved hospital problems. [...] Date 02/24/19 0000 - 02/24/19 2359 Shift [id number] [id number] 24 Hour Total INTAKE P.O.(mL/kg/hr) 400(0.6) 400 [...] neurologic deficits. Assessment Active Problems: CAD in [place] artery Diabetes mellitus (HCC) Hypertension HFrEF (heart failure with reduced ejection fraction) ([facility]) Resolved Problems: * No resolved hospital problems. [...] be monitored and followed by the diet laboratory technician. Keren Banks DT * Mil Pettit MD - 02/23/2019 9:52 AM EST Hospitalist Progress Note 02/23/2019 9:52 AM Subjective: Admit Date: 02/22/2019 PCP: LIANET PETERS Interval History: pt feels ok Some sore throat No overnight issues. Deniesabdominal pain, nausea, vomiting, diarrhea, constipation, fevers, or chills. DIET CARB CONTROL; Date 02/23/19 0000 - 02/23/19 2359 Shift [id number] [id number] [id number] 24 Hour Total INTAKE Shift Total(mL/kg) OUTPUT [...] neurologic deficits. Assessment Active Problems: CAD in [place] artery Diabetes mellitus (HCC) Hypertension HFrEF (heart failure with reduced ejection fraction) ([facility]) Resolved Problems: * No resolved hospital problems. 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 Advance Directives and Living Will Power of Geography Head Latest Code Status on File Code Status Date Activated Date Inactivated Comments Full Code 02/27/2019 4:35 PM Full Code 02/22/2019 3:10 PM 02/27/2019 4:35 PM Advance Directive Response Recorded Date/ Time Advance Directives Yes May 8:25am Living Will Yes June 03 8:25am Power of Geography Head Yes June 03, 2021 8:25am Advance Directive Response Recorded Date/ Time Advance Directives Yes May 8:25am Living Will No March 29 5:45pm Power of Geography Head No March 29, 2022 5:45pm Advance Directive Response Recorded Date/ Time Advance Directives Yes May 9:25am Living Will No March 29 6:45pm Power of Geography Head No March 29, 2022 6:45pm Advance Directive Response Recorded Date/ Time Advance Directives Yes May 9:25am Advance Directive Response Recorded Date/ Time Living Will No October 01, 2023 2:53pm Do you have a Healthcare Power of Geography Head? No October 01, 2023 2:53pm Advance Directives Yes May 9:25am Advance Directive Response Recorded Date/ Time Living Will No October 01, 2023 2:53pm Do you have a Healthcare Pow er of Geography Head? No October 01, 2023 2:53pm Do you have a Healthcare Pow er of Geography Head? Yes January 07, 2025 4:04pm Name of Medical Power of Geography Head Lynda Francis, [email or web address] January 07, 2025 4:04p m Advance Directives Yes May 9:25am Summary Purpose [...] 9:26am Discuss Results January 03, 2025 9:20am Chief Complaint Admit Date BACK PAIN September 18, 2024 12:30 pm 1 Y FU November 02, 2024 10:1 1am PELVIC PAIN, RLQ November 29, 2024 8: 38am EORDER December 06, 2024 9: 05am PAD December 12, 2024 10 :37am CLAUDICATION December 22, 2024 9:26am Discuss Results January 03, 2025 9:20am CHEST PAIN January 07, 2025 3:00pm CHEST PAIN January 08, 2025 12:50pm CHEST PAIN January 08, 2025 1:57pm EMB ([place]) January 10, 2025 10:45am Reason for Visit Admit Date Severe left ventricular systolic dysfunc tion (LVSD) November 02, 2024 10:11am Essential hypertension November 02, 2024 1 0:11am History of coronary artery bypass graft x 3 November 02, 2024 10:11am HLD (hyperlipidemia) November 02, 2024 10: 11am PAD (peripheral artery disease) October 10:11am Lower extremity neuropathy December 12, 2024 10:37am PAD (peripheral artery disease) November 182024 10:37am Lower extremity neuropathy December 9:20am [facility] (per[facility] artery disease[facility] Chest pain January 07, 2025 3:00pm Essential hypertension January 07, 2 025 3:00pm History of coronary artery bypass graft x 3 January 07, 2025 3:00pm HLD (hyperlipidemia) January 07 3:00pm PAD (peripheral artery disease) [facility] r 2024 3:00pm Thickened endometrium January 10 10:45am Chief Complaint Admit Date 1 Y FU November 02, 2024 10:1 1am PELVIC PAIN, RLQ November 29, 2024 8: 38am EORDER December 06, 2024 9: 05am PAD December 12, 2024 10 :37am CLAUDICATION December 22, 2024 9:26am Discuss Results January 03, 2025 9:20am CHEST PAIN January 07, 2025 3:00pm CHEST PAIN January 08, 2025 12:50pm CHEST PAIN January 08, 2025 1:57pm EMB ([place]) January 10, 2025 10:45am Chief Complaint Admit Date 1 Y FU November 02, 2024 10:1 1am PELVIC PAIN, RLQ November 29, 2024 8: 38am EORDER December 06, 2024 9: 05am PAD December 12, 2024 10 :37am CLAUDICATION December 22, 2024 9:26am Discuss Results January 03, 2025 9:20am CHEST PAIN January 07, 2025 3:00pm CHEST PAIN January 08, 2025 12:50pm CHEST PAIN January 08, 2025 1:57pm EMB ([place]) January 10, 2025 10:45am LUMBAR SPINE January 18, 2025 9: 21am Room 1 January 18, 2025 9: 36am Additional Source Comments INFORMATION SOURCE (unrecogn ized section and content) DATE CREATED AUTHOR 05/04/2019 [facility] tem DATE CREATED AUTHOR AUTHOR'S ORGANIZ ATION [facility]/2025 [facility] Goals (unrecognized section and content) Goals [...] DO Primary Care Provider Active Charlie Johnson FIELD TRAINING MANAGER, FIELD TRAINING MANAGER-C Attending Provider, Referring Pro vider Active Team [...] Provider, Referring P rovider Active Kaley Son FIELD TRAINING MANAGER, FIELD TRAINING MANAGER-C Attending Provider Active Team Status: Inactive Member Role Status Dates Dr. Marielos Perla DO Primary Care Provider, Referring P rovider Active Jennifer Bailey PA, PA Attending Provider Active Team Status: Active Member Role Status Dates Dr. Marielos Perla DO Primary Care Provider Active Jennifer HOLLAND PA Attending Provider, Referr ing Provider Active Team Status: Inactive Member Role Status Dates Dr. Marielos Perla DO Primary Care Provider Active Jennifer HOLLAND PA Attending Provider, Referr ing Provider Active Team Status: Inactive Member Role Status Dates Dr. Marielos Perla DO Primary Care Provider Active Rand Mckeon FIELD TRAINING MANAGER-C Attending Provider, Referring Prov ider Active Team Status: Inactive Member Role Status Dates Dr. Marielos Pelra DO Primary Care Provider Active Start: June 05, 2024 End: June 05, 2024 Dr. Marielos Perla DO Referring Provider Active St art: June 05, 2024 End: June 05, 2024 Charlie Johnson NP, FIELD TRAINING MANAGER-C Attending Provider Active S tart: June 05, 2024 End: June 05, 2024 Team Status: Inactive Member Role Status Dates Dr. Marielos Perla DO Primary Care Provider Active Start: September 18, 2024 End: September 18, 2024 Rand Mckeon FIELD TRAINING MANAGER-C Attending Provider Active St art: September 18, 2024 End: September 18, 2024 Rand Mckeon FIELD TRAINING MANAGER-C Referring Provider Active St art: September 18, 2024 End: September 18, 2024 Team Status: Active Member Role/Relationship Status Dates Dr. Marielos Perla DO Primary Care Provider Active Team Status: Inactive Member Role/Relationship Status Dates Dr. Marielos Perla DO Primary Care Provider Active Start: September 18, 2024 End: September 18, 2024 Rand Mckeon FIELD TRAINING MANAGER-C Attending Provider Active St art: September 18, 2024 End: September 18, 2024 Rand Mckeon FIELD TRAINING MANAGER-C Referring Provider Active St art: September 18, 2024 End: September 18, 2024 Team Status: Inactive Member Role/Relationship Status Dates Dr. Marielos Perla DO Primary Care Provider Active Start: November 02, 2024 End: November 02, 2024 Dr. Marielos Perla DO Referring Provider Active St art: November 02, 2024 End: November 02, 2024 Jennifer HOLLAND PA Attending Provider Active Start: November 02, 2024 End: November 02, 2024 Team Status: Inactive Member Role/Relationship Status Dates Dr. Marielos Perla DO Primary Care Provider Active Start: November 02, 2024 End: November 02, 2024 Jennifer HOLLAND PA Attending Provider Active Start: November 02, [...] Provider Active Start: December 06, 2024 Jennifer HOLLAND PA Attending Provider Active Start: December 06, [...] December 06, 2024 Jennifer HOLLAND PA Attending Provider Active Start: December 06, [...] End: November 02, 2024 Jennifer HOLLAND PA Attending physician Active Start: November 02, 2024 End: November 02, 2024 Team Status: Inactive Member Role/Relationship Status Dates Dr. Marielos Perla DO Primary care physician Active Start: November 02, 2024 End: November 02, 2024 Jennifer HOLLAND PA Attending physician Active Start: November 02, 2024 [...] End: December 06, 2024 SKYLER Clarke Attending physician Active Start: December 06, 2024 [...] January 03, 2025 End: January 03, 2025 Team Status: Active Member Role/Relationship Status Dates Dr. Marielos Perla DO Primary care physician Active Start: December 22, 2024 Dr. Grant Torres MD Attending physician Active Start: December 22, 2024 SKYLER Watson Referring Provider Active Star t: December 22, 2024 Team Status: Inactive Member Role/Relationship Status Dates Dr. Marielos Perla DO Primary care physician Active Start: January 07, 2025 End: January 08, 2025 Dr. Elena Bill MD Emergency Departmen t Physician Active Start: January 07, 2025 End: January 08, 2025 Dr. Maritza Suresh MD Admitting physician Active Start: January 07, 2025 End: January 08, 2025 Dr. Maritza Suresh MD Nurse Practitioner Active Start: January 07, 2025 End: January 08, 2025 Dr. Jorge Anderson MD Nurse Practitioner Active S tart: January 07, 2025 End: January 08, 2025 Dr. Rupali Lott DO Attending physician Active Start: January 07, 2025 End: January 08, 2025 Team Status: Active Member Role/Relationship Status Dates Dr. Marielos Perla DO Primary care physician Active Start: January 08, 2025 Dr. [facility] Active Start: January 08, 2025 Dr. Maritza Suresh MD Admitting physician Active Start: January 08, 2025 Dr. Maritza Suresh MD Nurse Practitioner Active Start: January 08, 2025 Dr. Jorge Anderson MD Attending physician Active Start: January 08, 2025 Dr. Jorge Anderson MD Nurse Practitioner Active S tart: January 08, 2025 Dr. Rupali Lott DO Nurse Practitioner Active S tart: January 08, 2025 Team Status: Active Member Role/Relationship Status Dates Dr. Marielos Perla DO Primary care physician Active Start: January 08, 2025 Dr. Elena [facility] Active Start: January 08, 2025 Dr. Maritza Suresh MD Admitting physician Active Start: January 08, 2025 Dr. Maritza Suresh MD Nurse Practitioner Active Start: January 08, 2025 Dr. Jorge Anderson MD Nurse Practitioner Active S tart: January 08, 2025 Dr. Rupali Lott DO Attending physician Active Start: January 08, 2025 Dr. Rupali Lott DO Nurse Practitioner Active S tart: January 08, 2025 Team Status: Inactive Member Role/Relationship Status Dates Dr. Marielos Perla DO Primary care physician Active Start: January 10, 2025 End: January 10, 2025 Dr. Marielos Perla DO Referring Provider Active St art: January 10, 2025 End: January 10, 2025 Lamar Olivera FIELD TRAINING MANAGER, FIELD TRAINING MANAGER-C Attending physician Active Start: January 10, 2025 End: January 10, 2025 Team Status: Inactive Member Role/Relationship Status Dates Dr. Marielos Perla DO Primary care physician Active Start: January 10, 2025 End: January 10, 2025 Lamar Olivera FIELD TRAINING MANAGER, FIELD TRAINING MANAGER-C Attending physician Active Start: January 10, 2025 End: January 10, 2025 Team Status: Inactive Member Role/Relationship Status Dates Dr. Marielos Perla DO Primary care physician Active Start: November 02, 2024 End: November 02, 2024 Dr. Marielos Perla DO Referring Provider Active St art: November 02, 2024 End: November 02, 2024 Jennifer HOLLAND PA Attending physician Active Start: November 02, 2024 End: November 02, 2024 Team Status: Inactive Member Role/Relationship Status Dates Dr. Marielos Perla DO Primary care physician Active Start: November 02, 2024 End: November 02, 2024 Jennifer HOLLAND PA Attending physician Active Start: November 02, 2024 [...] End: December 06, 2024 Jennifer HOLLAND, PA Attending physician Active Start: December 06, [...] Attending physician Active Start: December 22, 2024 SKYLER Watson Referring Provider Active Star t: December 22, 2024 Team Status: Inactive Member Role/Relationship Status Dates Dr. Marielos Perla DO Primary care physician Active Start: January 03, 2025 End: January 03, 2025 Dr. Marielos Perla DO Referring Provider Active St art: January 03, 2025 End: January 03, 2025 SKYLER Watson Attending physician Active Sta rt: January 03, 2025 End: January 03, 2025 Team Status: Inactive Member Role/Relationship Status Dates Dr. Marielos Perla DO Primary care physician Active Start: January 07, 2025 End: January 08, 2025 Dr. Elena Bill MD Emergency Departmen t Physician Active Start: January 07, 2025 End: January 08, 2025 Dr. Maritza Suresh MD Admitting physician Active Start: January 07, 2025 End: January 08, 2025 Dr. Maritza Suresh MD Nurse Practitioner Active Start: January 07, 2025 End: January 08, 2025 Dr. Jorge Anderson MD Nurse Practitioner Active S tart: January 07, 2025 End: January 08, 2025 Dr. Rupali Lott DO Attending physician Active Start: January 07, 2025 End: January 08, 2025 Team Status: Active Member Role/Relationship Status Dates Dr. Marielos Perla DO Primary care physician Active Start: January 08, 2025 Dr. Elena Bill MD Emergency Departmen t Physician Active Start: January 08, 2025 Dr. Maritza Suresh MD Admitting physician Active Start: January 08, 2025 Dr. Maritza Suresh MD Nurse Practitioner Active Start: January 08, 2025 Dr. Jorge Anderson MD Attending physician Active Start: January 08, 2025 Dr. Jorge Anderson MD Nurse Practitioner Active S tart: January 08, 2025 Dr. Rupali Lott DO Nurse Practitioner Active S tart: January 08, 2025 Team Status: Active Member Role/Relationship Status Dates Dr. Marielos Perla DO Primary care physician Active Start: January 08, 2025 Dr. Elena Bill MD Emergency Departmen t Physician Active Start: January 08, 2025 Dr. Maritza Suresh MD Admitting physician Active Start: January 08, 2025 Dr. Maritza Suresh MD Nurse Practitioner Active Start: January 08, 2025 Dr. Jorge Anderson MD Nurse Practitioner Active S tart: January 08, 2025 Dr. Rupali Lott DO Attending physician Active Start: January 08, 2025 Dr. Rupali Lott DO Nurse Practitioner Active S tart: January 08, 2025 Team Status: Inactive Member Role/Relationship Status Dates Dr. Marielos Perla DO Primary care physician Active Start: January 10, 2025 End: January 10, 2025 Dr. Marielos Perla DO Referring Provider Active St art: January 10, 2025 End: January 10, 2025 Lamar Olivera NP, FIELD TRAINING MANAGER-C Attending physician Active Start: January 10, 2025 End: January 10, 2025 Team Status: Inactive Member Role/Relationship Status Dates Dr. Marielos Perla DO Primary care physician Active Start: January 10, 2025 End: January 10, 2025 Lamar Olivera NP, FIELD TRAINING MANAGER-C Attending physician Active Start: January 10, 2025 End: January 10, 2025 Team Status: Inactive Member Role/Relationship Status Dates Dr. Marielos Perla DO Primary care physician Active Start: January 18, 2025 End: January 18, 2025 Dr. Marielos Perla DO Referring Provider Active St art: January 18, 2025 End: January 18, 2025 SKYLER Vance Attending physician Active Sta rt: January 18, 2025 End: January 18, 2025 Team Status: Inactive Member Role/Relationship Status Dates Dr. Marielos Perla DO Primary care physician Active Start: January 18, 2025 End: January 18, 2025 Dr. Jorge Anderson MD Attending physician Active Start: January 18, 2025 End: January 18, 2025 FOR RECORDS PERTAINING TO PATIENTS WHO [...] BASED ON THE PRIMARY CLINICAL RECORDS. [facility] [employer] [facility]. provides no warranty or guarantee of the accuracy or completeness of information in this document.
--- OUTSIDE RECORDS SUMMARY | 2025-01-22 07:16 | XMS RPT_ITS | CCD ---
Author Organization [facility] CliniSyga Care Team Providers Care Frame Wirer Name Role Phone Lianet Peters Primary Care Provider Dr. Marielos Perla Primary Care Provider Dr. Marielos Perla Referring Provider MD Bruce Dubon Attending Provider [phone] Marielos Perla Primary Care Provider Dr. Marielos Perla Referring Provider Huy FRAMER, FRAMER-C Kaley Attending Provider SKYLER Thakkar Attending Provider Dr. Marielos Perla DO Primary Care Provider Dr. Marielos Perla DO Referring Provider [phone] Elizabeth LOCKHART-CCharlie Attending Provider Mike FRAMER-CRand Attending Provider Mike FRAMER-CRand Referring Provider [phone] Marielos Perla DO Primary Care Provider Dr. Marielos Perla DO Referring Provider [phone] Jennifer Thakkar Attending Provider Jennifer Thakkar Referring Provider Dr. Marielos Perla DO Attending Provider [phone] Ava Walker Attending Provider Ava Walker Referring Provider Brian ROMERO, Dr. Rosenthal Attending Provider [phone] Marielos Perla DO Primary Care Physician Mike FRAMER-C, Rand Attending Physician Jennifer Thakkar Attending Physician [...] Physician Monica ROMERO, Dr. Patel Attending Physician rOen LYLE, Dr. Zapien Nurse Practitioner Jarod FRAMER-C, Lamar Attending Physician Pan LYLE, Dr. Arceo Primary Care Physician Lidia Fleming Attending Physician Malys, Marielos Attending Unavailable Malys, Marielos Primary Care Unavailable Malys, Marielos Referring Unavailable Lamar Olivera Attending Unavailable Malys, Marielos Primary Care Unavailable Rupali Lott Attending Unavailable Koram, Maritza Leticia Admitting Unavailable Malys, Marielos Primary Care Unavailable Monica, [place] Consulting Unavailable Koram, Marizta Leticia Consulting Unavailable Young, Ava Attending Unavailable [...] Care Unavailable Jopperi, Grant Admitting Unavailable Monica, [place] Attending Unavailable Monica, [place] Consulting Unavailable Kittoe, Kaushik Consulting Unavailable Jopperi, Grant Consulting Unavailable Jopperi, Grant Admitting Unavailable Kittoe, Kaushik Attending Unavailable Malys, Marielos Primary Care Unavailable Monica, Jorge Consulting Unavailable Jarod, Lamar Referring Unavailable Guy, Lamar Attending Unavailable Malys, Marielos Primary Care Unavailable Guy, Lamar Attending Unavailable Guy, Lamar Referring Unavailable Jack, Lidia Consulting Unavailable [...] Unavailable Malys, Marielos Primary Care Unavailable Roof FRAMER, Charlie Cobos Attending Unavailable Malys, Marielos Referring Unavailable KitcharleseKaushik Attending Unavailable Young, Ava Referring Unavailable Malys, Marielos Primary Care Unavailable BrianGrant Attending Unavailable Roof FRAMER, Charlie Cobos Attending Unavailable Malys, Marielos Primary Care Unavailable Malys, Marieols Referring Unavailable BaileyJennifer garcia Attending Unavailabl e Malys, Marielos Primary Care Unavailable Malys, Marielos Referring Unavailable Jopperi, Grant Attending Unavailable Young, Ava Attending Unavailable Young, Ava Referring Unavailable Malys, Marielos Primary Care Unavailable Allergies Allergy Classification Reported Allergen(s) Allergy Type Date of Onset Reaction(s) Facility (20 sources) ceFAZolin Drug Allergy 9 Hives, Shortness Of Breath [place], [place] (20 sources) Codeine Drug Allergy 9 Hives, Shortness Of Breath [place], [place] (20 sources) Morphine Drug Allergy 9 Hives, Shortness Of Breath [place] (20 sources) Naloxone Drug Allergy 9 Hives, Shortness Of Breath [place], [place] (20 sources) Pentazocine Drug Allergy 9 Hives, Shortness Of Breath [place], [place] (20 sources) Acetaminophen Drug Allergy 2 Nausea [facility] (20 sources) atorvastatin Drug Allergy 2 Severe myalgias [facility] (20 sources) Pentazocine; Translations: [pentazocine lactate] Drug Allergy 2 Shortness of breath [facility] (1 source) Acetaminophen Drug Allergy 5 [facility] (1 source) atorvastatin Drug Allergy 5 [facility] (1 source) ceFAZolin Drug Allergy 5 [facility] (1 source) Codeine Drug Allergy 5 [facility] (1 source) Morphine Drug Allergy 5 [facility] (1 source) Naloxone Drug Allergy 5 [facility] (1 source) Pentazocine Drug Allergy 5 [facility] Medications Current Medications Medication Drug [...] 10:00am docusate sodium 50 mg / sennosides, half-way 8.6 mg oral tablet (2 sources) Start: [...] 5-325 MG per tablet Indications: CAD in [place] artery , S/P CABG x 3 Take [...] extended release oral tablet (1 source) Uncompetitive N-hkwdqn-N-asparta te Receptor Antagonist, Sigma-1 Agonist Start: 02-25-2019 [...] interventions based on BGT and call the Boat Motor Mechanic. o Maximum insulin infusion drip rate may not exceed 30 units/hr; Insulin drip may NOT be discontinued unless approved by Boat Motor Mechanic. Discontinue all subcutaneous Insulin orders (if patient [...] March 28, 2019 2:41pm polyethylene glycol 3350 55613 mg powder for oral solution (20 sources) [...] 1 TABLET BY MOUTH EVERY DAY sennosides, half-way 8.6 mg oral tablet (20 sources) Start: [...] 20 ml/hr to SP(introducer) and WT on Anderson Jose Catheter; once Anderson discontinued run at 20 ml/hr through SP(introducer) [...] heart disease (20 sources) Coronary arteriosclerosis in [place] artery; Translations: [Coronary atherosclerosis] Onset: 02-22-2019 03-03-2019 Chronic Comment on above: CABG x3 with GIRALDO to LAD, SVG to OM 2, and SVG to PDA of RCA on 02/27/[address] Taylor at [facility]; Coronary atherosclerosis and other heart disease [...] Facility Orthopedic Visit Reporton Orthopedic Visit Report [facility] [address] [place] [address] OFFICE VISIT Date of Service: 01/18/25 MR#: [id number] Acct: [id number] Name: CHRISTY FRANCIS Rep #: [id number] : 1950 Provider: SKYLER Vance Age/Sex: 74/F Location: [facility] Status: Signed Intake Vital Signs 01/07/25 16:04 [...] Mechanical loosening of prosthetic knee Atherosclerosis of [place] coronary artery of [place] heart without angina pectoris PAD (peripheral artery [...] had rhianna (more content not included)... [facility] Surgical pathology reportOrd ered By: Tammy Simmons on 01-12-2025 Surgical pathology study [facility] Rn Diabetes Office Visit Reporton 01-10-2025 Rn Diabetes Office Visit Report [facility] [address], [address] [place] [address] OFFICE VISIT Date of Service: 01/10/25 MR#: [id number] Acct: [id number] Name: CHRISTY FRANCIS Rep #: [id number] : 1950 Provider: JOHNATHON haro Age/Sex: 74/F Location: [facility] Status: Signed Intake Vital Signs 11/02/24 10:17 01/07/25 16:04 01/10/25 10:46 Height 5 ft 2 in 5 ft 2 in 5 ft 2 in Weight: 167 lb BMI 30.5 BP 125/74 H Blood Pressure Location Rt brachial Position Sitting Pulse 98 Pulse Source Monitor Intake Visit Reasons: NU (CLAIRE) Anesthesiology Tech Required: No Accompanied by: Self Is patient [...] Mechanical loosening of prosthetic knee Atherosclerosis of [place] coronary artery of [place] heart without angina pectoris PAD (peripheral artery disease) HLD (hyperlipidemia) Type II diabetes mellitus Surgical History History of cholecystectomy History of coronary artery bypass graft x 3 ( 02/27/19) History of prosthetic unicompartmental arthroplasty of left knee Family History Mother Heart disease Social History (Updated 01/10/25 @ 10:53 by Kaylen Medrano) current occupational status: retired current occupation: Retired. [employer]. Smoking Status: Light Smoker (<10/day) alcohol [...] Locatn Provider FOB [birth year] Germán [birth year] Jean-Claude [facility] Details: CHRISTY FRANCIS is a 74 year old who (more content not included)... [facility] Surgery Specimen Level Anthony 01-10-2025 Surgery Specimen Level IV Patient Age/Sex Location Account Attending Physician GALILEOCHRISTY Marquita 74/F LABSPEC [id number] JOHNATHON Dos Santos Specimen: [id number] Received: 01/10/25 Status: LISBETH Sepulveda Num: [id number] Spec Type: ENDOM BX/C Subm Dr: JOHNATHON [...] pink-red tissue. Entirely submitted in 1 cassette. [place] 01/10/2025 CPT:84970 Patient Age/Sex Location Account Attending Physician CHRISTY FRANCIS 74/F LABSPEC [id number] JOHNATHON Dos Santos Signed (signature on file) Dr. Tammy Simmons MD 01/12/25 1526 [facility] Comment on above: Performed By: #### P SUIV ####[facility] [address] [place], [address] 12 Lead EKGon 01-08-2025 12 Lead EKG [facility] [address] [place] [address] 12 Lead EKG 01/08/25 0542 MR#: [id number] Acct: [id number] Name: CHRISTY FRANCIS Rep #: [id number] : 1950 74 From: Jorge Anderson MD Attending Dr: Dr. Rupali Lott, DO Status: ADM I NO Ordering Dr: Maritza Suresh MD Date: 01/08/25 Location: [facility] Sex: F C Admitted: 01/07/25 Test Reason [...] IS UNCONFIRMED Confirmed by MONICA ROMERO, JORGE ([id number]), make up editor SHILPA VALENZUELA ([id number]) on 01/08/2025 10:31:37 AM Referred By: Confirmed By: JORGE ANDERSON MD 01/08/25 103 Date Jorge Anderson MD CC: Dr. Rupali Lott DO; Dr. Marielos Perla DO; Dr. Maritza Suresh MD Signed [facility] Absolute lymphocyte countOrd ered By: Elena Bill on 01-08-2025 Lymphocytes Auto (Unsp spec) [#/Vol] 1.37 10*3/uL 0.83-4.51 [facility] Absolute neutrophil countOrd ered By: Elena Bill on 01-08-2025 Neutrophils (Bld) [#/Vol] 7.1 10*3/uL 2.0-7.7 [facility] Automated lymphocyte count a s percentage of total leukocytesOrdered By: Elena Multanier on 01-08-2025 Lymphocytes/100 WBC Auto (Unsp spec) 13.2 % Low 19-41 [facility] Basophil percentageOrdered B y: Elena Bill on 01-08-2025 Basophils/100 WBC (Bld) 0.7 % 0-1 [facility] Bedside Glucoseon 01-08-2025 FINGERSTICK GLU 169 mg/dL High 74-106 [facility] Comment on above: Result Comment: GENARO GEMENT OF PATIENT CARE PER NURSING PROTOCOL Performed By: #### L 501.080 ####[facility] [address] [place], [place], [address] FINGERSTICK GLU 189 mg/dL High 74-106 [facility] Comment on above: Result Comment: GENARO GEMENT OF PATIENT CARE PER NURSING PROTOCOL Performed By: #### L 501.080 #### [facility] [address] [place], [place], [address] CBC W/Diff, Automatedon 12-19 Absolute Lymph 1.37 X10 3/uL Normal 0.83-4.51 [facility] Comment on above: Performed By: #### L 501.080 #### [facility] [address] [place], [address] Absolute Neut 7.1 X10 3/uL Normal 2.0-7.7 [facility] Comment on above: Performed By: #### L 501.080 #### [facility] [address] [place], [address] Basophils/100 WBC (Bld) 0.7 % Normal 0-1 [facility] Comment on above: Performed By: #### L 501.080 #### [facility] [address] [place], [address] Eosinophils/100 WBC (Bld) 6.3 % High 0-5 [facility] Comment on above: Performed By: #### L 501.080 #### [facility] [address] [place], [address] Erythrocyte distribution width (RBC) [Ratio] 15.0 % High 11.6-14.6 [facility] Comment on above: Performed By: #### L 501.080 #### [facility] [address] [place], [address] Hematocrit (Bld) [Volume fraction] 37.3 % Normal 37-47 [facility] Comment on above: Performed By: #### L 501.080 #### [facility] [address] [place], [address] Hemoglobin (Bld) [Mass/Vol] 12.2 g/dL Normal 12.0-15.0 [facility] Comment on above: Performed By: #### L 501.080 #### [facility] [address] [place], [address] IG% 0.500 Normal 0.0-0.9 [facility] Comment on above: Result Comment: IG% - Immature Granulocytes (promyelocytes, myelocytes and metamyelocytes) > 1% indicates that a LEFT SHIFT is Present. Performed By: #### L 501.080 #### [facility] [address] [place], [address] Lymphocytes/100 WBC (Bld) 13.2 % Low 19-41 [facility] Comment on above: Performed By: #### L 501.080 #### [facility] [address] [place], [address] MCH (RBC) [Entitic mass] 30.6 pg Normal 27.0-32.0 [facility] Comment on above: Performed By: #### L 501.080 #### [facility] [address] [place], [address] MCHC (RBC) [Mass/Vol] 32.7 g/dL Normal 32-36 [facility] Comment on above: Performed By: #### L 501.080 #### [facility] [address] [place], [address] MCV (RBC) [Entitic vol] 93.5 fL Normal 81-99 [facility] Comment on above: Performed By: #### L 501.080 #### [facility] [address] [place], [address] Monocytes/100 WBC (Bld) 10.8 % High 0-10 [facility] Comment on above: Performed By: #### L 501.080 #### [facility] [address] [place], [address] Neutrophils/100 WBC (Bld) 68.5 % Normal 47-70 [facility] Comment on above: Performed By: #### L 501.080 #### [facility] [address] [place], [address] Nucleated RBC (Bld) [#/Vol] 0 10*3/uL Normal 0-5 [facility] Comment on above: Performed By: #### L 501.080 #### [facility] [address] [place], [address] Platelet mean volume (Bld) [Entitic vol] 11.0 fL Normal 6.2-12.0 [facility] Comment on above: Performed By: #### L 501.080 #### [facility] [address] [place], [address] Platelets (Bld) [#/Vol] 282 10*3/uL Normal 150-450 [facility] Comment on above: Performed By: #### L 501.080 #### [facility] [address] [place], [address] RBC (Bld) [#/Vol] 3.99 10*6/uL Low 4.2-5.4 [facility] Comment on above: Performed By: #### L 501.080 #### [facility] [address] [place], [address] RDW SD 51.2 fl High 35.1-43.9 [facility] Comment on above: Performed By: #### L 501.080 #### [facility] [address] [place], [address] WBC (Bld) [#/Vol] 10.4 10*3/uL Normal 4.4-11.0 [facility] Comment on above: Performed By: #### L 501.080 #### [facility] [address] [place], [address] Cardiac Cath Diagnosticon Cardiac Cath Diagnostic [facility] Imaging Services [address] [place] [address] Cardiac Cath Diagnostic MR#: [id number] Acct: [id number] Name: CHRISTY FRANCIS Rep #: [id number] : 1950 74 From: Jorge Anderson MD PCP: Dr. Marielos Perla, DO Status:ADM BRIAN Patient Name: CHRISTY FRANCIS Study Date: 01/08/2025 Performing: Jorge Anderson MD Ht: 62 inches 157.48 cm : 1950 Wt: 165.8 lbs 75.1 kg Age: 74 Gender: female BSA: 1.76 PROCEDURE(S) PERFORMED DC04-(58613)LHC/COR/CABG CLINICAL PROFILE AND INDICATIONS Indications: Worsening Angina [...] Dictated: 01/08/25 1222 Date Transcribed: 01/08/25 1306 Manager Play: CO Signed [facility] Cardiac catheterization repo rtOrdered By: Jorge Anderson on 01-08-2025 Cardiac catheterization study [facility] Imaging Services [address] [place] [address] Cardiac Cath Diagnostic MR#: [id number] Acct: [id number] Name: CHRISTY FRANCIS Rep #:[id number] : 1950 74 From: Jorge Anderson MD PCP: Dr. Marielos Perla DO Status:ADM BRIAN Patient Name: CHRISTY FRANCIS Study Date: 01/08/2025 Performing: Jorge Anderson MD Ht: 62 inches 157.48 cm : 1950 Wt: 165.8 lbs 75.1 kg Age: 74 Gender: female BSA: 1.76 PROCEDURE(S) PERFORMED DC04-(42722)LHC/COR/CABG CLINICAL PROFILE AND INDICATIONS Indications: Worsening Angina [...] Dictated: 01/08/25 1222 Date Transcribed: 01/08/25 1306 Manager Play: CO Signed [facility] Work Phone: Consultation - Cardiologyon 01-08-2025 Consultation - Cardiology [facility] Medical Records Department [address] [place] [address] [place] [address] Consultation - Cardiology 01/08/25 0652 MR#: [id number] Acct: [id number] Name: CHRISTY FRANCIS Rep #: [id number] : 1950 74 From: Jorge Anderson MD PCP: Dr. Marielos Perla DO Status:DIS BRIAN Location: [place] [address] Assessment Plan Assessment/Plan (1) Chest pain: PLAN: [...] to the obtuse marginal branch was occluded. [facility] Medical History Severe left ventricular systolic dysfunction (LVSD) Palpitations Right rotator cuff tear Trigger finger of both hands Carpal tunnel syndrome on both sides FHx: cholecystectomy History of left heart catheterization (LHC) ( 06/03/21) Essential hypertension Mechanical loosening of prosthetic knee Atherosclerosis of [place] coronary artery of [place] heart without angina pectoris PAD (peripheral artery [...] Status D (more content not included)... [facility] Electrocardiogram reportOrde red By: Jorge Anderson on 01-08-2025 EKG study [facility] [address] [place] [address] 12 Lead EKG 01/07/25 1623 MR#: [id number] Acct: [id number] Name: CHRISTY FRANCIS Rep #:[id number] : 1950 74 From: Jorge Anderson MD Attending Dr: Dr. Rupali Lott DO S tatus: ADM BRIAN Ordering Dr: Maritza Suresh MD Date: 01/07/25 Location: [facility] Sex: F C Admitted: 01/07/25 Test Reason [...] IS UNCONFIRMED Confirmed by JORGE ANDERSON MD ([id number]), make up editor SHILPA VALENZUELA ([id number]) on 01/08/2025 10:32:10 AM Referred By: SATHYA Confirmed By: JORGE ANDERSON MD 01/08/25 1032 Date _ Jorge Anderson MD CC: Dr. Rupali Lott DO; Dr. Marielos Perla DO; Dr. Maritza Suresh MD ~ Signed [facility] Work Phone: EKG study [facility] [address] [place] [address] 12 Lead EKG 01/08/25 0542 MR#: [id number] Acct: [id number] Name: CHRISTY FRANCIS Rep #:[id number] : 1950 74 From: Jorge Anderson MD [...] UNCONFIRMED Confirmed by MONICA ROMERO, JORGE ([id number]), make up editor SHILPA VALENZUELA ([id number]) on 01/08/2025 10:31:37 AM Referred By: Confirmed By: JORGE ANDERSON MD 01/08/25 1031 Date _ Jorge Anderson MD CC: Dr. Rupali Lott DO; Dr. Marielos Perla DO; Dr. Maritza Suresh MD ~ Signed [facility] Work Phone: EKG study [facility] [address] [place] [address] 12 Lead EKG 01/07/25 1234 MR#: [id number] Acct: [id number] Name: CHRISTY FRANCIS Rep #:[id number] : 1950 74 From: Jorge Anderson MD [...] Normal sinus rhythm Normal ECG Confirmed by OJRGE ANDERSON MD ([id number]), make up editor SHILPA VALENZUELA ([id number]) on 01/08/2025 7:56:38 AM Referred By: Confirmed By: JORGE ANDERSON MD 01/08/25 0756 Date _ Jorge Anderson MD CC: Dr. Elena Bill MD; Dr. Rupali Lott DO; Dr. Marielos Perla DO ~ Signed [facility] Work Phone: Eosinophil percentageOrdered By: Elena Bill on 01-08-2025 Eosinophils/100 WBC (Bld) 6.3 % High 0-5 [facility] Erythrocyte distribution wid th ratioOrdered By: Elena Bill on 01-08-2025 Erythrocyte distribution width (RBC) [Ratio] 15.0 % High 11.6-14.6 [facility] Erythrocyte distribution wid th standard deviationOrdered By: Elena Bill on 01-08-2025 Erythrocyte distribution width (RBC) [Ratio] 51.2 fl High 35.1-43.9 [facility] deOrdered By: Rupali Lott on 01-08-2025 Glucose [Mass/Vol] 169 mg/dL High 74-106 [facility] Comment on above: MANAGEMENT OF PATIEN T CARE PER NURSING PROTOCOL Hematocrit Auto (Bld) [Volum e fraction]Ordered By: Elena Bill on 01-08-2025 Hematocrit (Bld) [Volume fraction] 37.3 % 37-47 [facility] Hemoglobin measurementOrdere d By: Elena Bill on 01-08-2025 Hemoglobin (Bld) [Mass/Vol] 12.2 g/dL 12.0-15.0 [facility] Immature granulocytes/100 WB C Auto (Bld)Ordered By: Elena Bill on 01-08-2025 Immature granulocytes/100 WBC (Bld) 0.500 % 0.0-0.9 [facility] Comment on above: IG% - Immature Granu locytes (promyelocytes, myelocytes and metamyelocytes) > 1% indicates that a LEFT SHIFT is Present. MCV (mean corpuscular volume ) determinationOrdered By: Elena Bill on 01-08-2025 MCV (RBC) [Entitic vol] 93.5 fL 81-99 [facility] Mean corpuscular hemoglobin (MCH) determinationOrdered By: Elena Bill on 01-08-2025 MCH (RBC) [Entitic mass] 30.6 pg 27.0-32.0 [facility] Mean corpuscular hemoglobin concentration (MCHC) determinationOrdered By: Elena Bill on 01-08-2025 MCHC (RBC) [Mass/Vol] 32.7 g/dL 32-36 [facility] Mean platelet volume determi nationOrdered By: Elena Bill on 01-08-2025 Platelet mean volume (Bld) [Entitic vol] 11.0 fL 6.2-12.0 [facility] Monocyte percentageOrdered B y: Elena Bill on 01-08-2025 Monocytes/100 WBC (Bld) 10.8 % High 0-10 [facility] Neutrophil percentageOrdered By: Elenaomar Bill on 01-08-2025 Neutrophils/100 WBC (Bld) 68.5 % 47-70 [facility] Nucleated red blood cell per centageOrdered By: Elena Bill on 01-08-2025 Nucleated RBC/100 WBC (Bld) [Ratio] 0 % 0-5 [facility] Platelet countOrdered By: Tomasz Bill on 01-08-2025 Platelets (Bld) [#/Vol] 282 10*3/uL 150-450 [facility] RBC Auto (Bld) [#/Vol]Ordere d By: Elena Bill on 01-08-2025 RBC (Bld) [#/Vol] 3.99 10*6/uL Low 4.2-5.4 [facility] White blood cell (WBC) count Ordered By: Elena Bill on 01-08-2025 WBC (Bld) [#/Vol] 10.4 10*3/uL 4.4-11.0 [facility] 12 Lead EKGon 01-07-2025 12 Lead EKG [facility] [address] [place] [address] 12 Lead EKG 01/07/25 1623 MR#: [id number] Acct: [id number] Name: CHRISTY FRANCIS Rep #: [id number] : 1950 74 From: Jorge Anderson MD Attending Dr: Dr. Rupali Lott DO Status: ADM I NO Ordering Dr: Maritza Suresh MD Date: 01/07/25 Location: [facility] Sex: F C Admitted: 01/07/25 Test Reason [...] UNCONFIRMED Confirmed by MONICA ROMERO, JORGE ([id number]), make up editor SHILPA VALENZUELA ([id number]) on 01/08/2025 10:32:10 AM Referred By: SATHYA Confirmed By: JORGE ANDERSON MD 01/08/25 103 Date Jorge Anderson MD CC: Dr. Rupali Lott DO; Dr. Marielos Perla DO; Dr. Maritza Suresh MD Signed [facility] 12 Lead EKG [facility] [address] [place] [address] 12 Lead EKG 01/07/25 1234 MR#: [id number] Acct: [id number] Name: CHRISTY FRANCIS Rep #: [id number] : 1950 74 From: Jorge Anderson MD [...] Normal ECG Confirmed by MONICA ROMERO, JORGE ([id number]), make up editor SHILPA VALENZUELA ([id number]) on 01/08/2025 7:56:38 AM Referred By: Confirmed By: JORGE ANDERSON MD 01/08/25 0756 Date Jorge Anderson MD CC: Dr. Elena Bill MD; Dr. Rupali Lott DO; Dr. Marielos Perla DO Signed [facility] Activated partial thrombopla stin time (aPTT) in platelet poor plasma by coagulation aOrdered By: Elena Bill on 01-07-2025 aPTT Coag (PPP) [Time] 26.9 s 24.1-36.2 [facility] Anion gap in Serum or Plasma Ordered By: Elena Bill on 01-07-2025 Anion gap [Moles/Vol] 13 mmol/L - [facility] BUN/creatinine ratioOrdered By: Elena Bill on 01-07-2025 Urea nitrogen/Creatinine [Mass ratio] 22.7 mg/mg High 02-05 [facility] Basic Metabolic Profile (BMP )on 01-07-2025 BUN/CRE 22.7 RATIO High 02-05 [facility] Comment on above: Performed By: #### L 501.080 #### [facility] [address] [place], [place], [address] Calcium [Mass/Vol] 9.5 mg/dL Normal 7.6-11.0 [facility] Comment on above: Performed By: #### L 501.080 #### [facility] [address] [place], [address] Chloride [Moles/Vol] 99 mmol/L Normal 98-108 [facility] Comment on above: Performed By: #### L 501.080 #### [facility] [address] [place], [address] CO2 [Moles/Vol] 25.3 mmol/L Normal 21.0-32.0 [facility] Comment on above: Performed By: #### L 501.080 #### [facility] [address] [place], [place], [address] Creatinine [Mass/Vol] 1.26 mg/dL High 0.70-1.20 [facility] Comment on above: Performed By: #### L 501.080 #### [facility] [address] [place], [address] ECRCL 37.37 ml/min Low 50-250 [facility] Comment on above: Performed By: #### L 501.080 #### [facility] [address] [place], [address] GAP 13 Normal 5-15 [facility] Comment on above: Performed By: #### L 501.080 #### [facility] [address] [place], [address] GFR/1.73 sq M.predicted among non-blacks MDRD (S/P/Bld) [Vol rate/Area] 45 mL/min/{1.73_m2} Low >60 [facility] Comment on above: Result Comment: mL/m in/1.73m2 CKD-EPI Creatinine Equation (2020) Performed By: #### L 501.080 #### [facility] [address] [place], [address] Glucose [Mass/Vol] 186 mg/dL High 70-99 [facility] Comment on above: Performed By: #### L 501.080 #### [facility] [address] [place], [address] Potassium [Moles/Vol] 4.0 mmol/L Normal 3.3-5.1 [facility] Comment on above: Performed By: #### L 501.080 #### [facility] [address] [place], [address] Sodium [Moles/Vol] 138 mmol/L Normal 133-145 [facility] Comment on above: Performed By: #### L 501.080 #### [facility] [address] [place], [address] Urea nitrogen [Mass/Vol] 29 mg/dL High 4-19 [facility] Comment on above: Performed By: #### L 501.080 #### [facility] [address] [place], [address] Bedside Glucoseon 01-07-2025 FINGERSTICK GLU 194 mg/dL High 74-106 [facility] Comment on above: Result Comment: GENARO DANG OF PATIENT CARE PER NURSING PROTOCOL Performed By: #### L 501.080 #### [facility] [address] [place], [address] CBC W/Diff, Automatedon 12-19 Absolute Lymph 1.76 X10 3/uL Normal 0.83-4.51 [facility] Comment on above: Performed By: #### L 501.080 #### [facility] [address] [place], [address] Absolute Neut 8.4 X10 3/uL High 2.0-7.7 [facility] Comment on above: Performed By: #### L 501.080 #### [facility] [address] [place], [address] Basophils/100 WBC (Bld) 0.6 % Normal 0-1 [facility] Comment on above: Performed By: #### L 501.080 #### [facility] [address] [place], [address] Eosinophils/100 WBC (Bld) 5.2 % High 0-5 [facility] Comment on above: Performed By: #### L 501.080 #### [facility] [address] [place], [address] Erythrocyte distribution width (RBC) [Ratio] 15.2 % High 11.6-14.6 [facility] Comment on above: Performed By: #### L 501.080 #### [facility] [address] [place], [address] Hematocrit (Bld) [Volume fraction] 40.1 % Normal 37-47 [facility] Comment on above: Performed By: #### L 501.080 #### [facility] [address] [place], [address] Hemoglobin (Bld) [Mass/Vol] 13.4 g/dL Normal 12.0-15.0 [facility] Comment on above: Performed By: #### L 501.080 #### [facility] [address] [facility] [facility] [place], [address] IG% 0.300 Normal 0.0-0.9 [facility] Comment on above: Result Comment: IG% - Immature Granulocytes (promyelocytes, myelocytes and metamyelocytes) > 1% indicates that a LEFT SHIFT is Present. Performed By: #### L 501.080 #### [facility] [address] [place], [address] Lymphocytes/100 WBC (Bld) 14.8 % Low 19-41 [facility] Comment on above: Performed By: #### L 501.080 #### [facility] [address] [place], [address] MCH (RBC) [Entitic mass] 31.8 pg Normal 27.0-32.0 [facility] Comment on above: Performed By: #### L 501.080 #### [facility] [address] [place], [address] MCHC (RBC) [Mass/Vol] 33.4 g/dL Normal 32-36 [facility] Comment on above: Performed By: #### L 501.080 #### [facility] [address] [place], [address] MCV (RBC) [Entitic vol] 95.0 fL Normal 81-99 [facility] Comment on above: Performed By: #### L 501.080 #### [facility] [address] [place], [address] Monocytes/100 WBC (Bld) 9.1 % Normal 0-10 [facility] Comment on above: Performed By: #### L 501.080 #### [facility] [address] [place], [address] Neutrophils/100 WBC (Bld) 70.0 % Normal 47-70 [facility] Comment on above: Performed By: #### L 501.080 #### [facility] [address] [place], [address] Nucleated RBC (Bld) [#/Vol] 0 10*3/uL Normal 0-5 [facility] Comment on above: Performed By: #### L 501.080 #### [facility] [address] [place], [address] Platelet mean volume (Bld) [Entitic vol] 11.0 fL Normal 6.2-12.0 [facility] Comment on above: Performed By: #### L 501.080 #### [facility] [address] [place], [address] Platelets (Bld) [#/Vol] 312 10*3/uL Normal 150-450 [facility] Comment on above: Performed By: #### L 501.080 #### [facility] [address] [place], [address] RBC (Bld) [#/Vol] 4.22 10*6/uL Normal 4.2-5.4 [facility] Comment on above: Performed By: #### L 501.080 #### [facility] [address] [place], [address] RDW SD 53.1 fl High 35.1-43.9 [facility] Comment on above: Performed By: #### L 501.080 #### [facility] [address] [place], [address] WBC (Bld) [#/Vol] 11.9 10*3/uL High 4.4-11.0 [facility] Comment on above: Performed By: #### L 501.080 #### [facility] [address] [place], [address] Absolute Neut Normal 2.0-7.7 [facility] Comment on above: Order Comment: Comme nts: If not done in prior 24 hours Result Comment: DUPL ICATE ORDER. Performed By: #### L 501.080 #### [facility] [address] [place], [address] HCT Normal 37-47 [facility] Comment on above: Order Comment: Comme nts: If not done in prior 24 hours Result Comment: DUPL ICATE ORDER. Performed By: #### L 501.080 #### [facility] [address] [place], [address] HGB Normal 12.0-15.0 [facility] Comment on above: Order Comment: Comme nts: If not done in prior 24 hours Result Comment: DUPL ICATE ORDER. Performed By: #### L 501.080 #### [facility] [address] [place], [address] MCH Normal 27.0-32.0 [facility] Comment on above: Order Comment: Comme nts: If not done in prior 24 hours Result Comment: DUPL ICATE ORDER. Performed By: #### L 501.080 #### [facility] [address] [place], [address] MCHC Normal 32-36 [facility] Comment on above: Order Comment: Comme nts: If not done in prior 24 hours Result Comment: DUPL ICATE ORDER. Performed By: #### L 501.080 #### [facility] [address] [place], [address] MCV Normal 81-99 [facility] Comment on above: Order Comment: Comme nts: If not done in prior 24 hours Result Comment: DUPL ICATE ORDER. Performed By: #### L 501.080 #### [facility] [address] [place], [address] NEUT% Normal 47-70 [facility] Comment on above: Order Comment: Comme nts: If not done in prior 24 hours Result Comment: DUPL ICATE ORDER. Performed By: #### L 501.080 #### [facility] [address] [place], [address] PLT Normal 150-450 [facility] Comment on above: Order Comment: Comme nts: If not done in prior 24 hours Result Comment: DUPL ICATE ORDER. Performed By: #### L 501.080 #### [facility] [address] [place], [address] RBC Normal 4.2-5.4 [facility] Comment on above: Order Comment: Comme nts: If not done in prior 24 hours Result Comment: DUPL ICATE ORDER. Performed By: #### L 501.080 #### [facility] [address] [place], [address] RDW CV Normal 11.6-14.6 [facility] Comment on above: Order Comment: Comme nts: If not done in prior 24 hours Result Comment: DUPL ICATE ORDER. Performed By: #### L 501.080 #### [facility] [address] [place], [address] RDW SD Normal 35.1-43.9 [facility] Comment on above: Order Comment: Comme nts: If not done in prior 24 hours Result Comment: DUPL ICATE ORDER. Performed By: #### L 501.080 #### [facility] [address] [place], [address] WBC Normal 4.4-11.0 [facility] Comment on above: Order Comment: Comme nts: If not done in prior 24 hours Result Comment: DUPL ICATE ORDER. Performed By: #### L 501.080 #### [facility] [address] [place], [address] CTA Chest W/WO Contraston CTA Chest W/WO Contrast [facility] Imaging Services [address] [place] [address] CTA Chest W/WO Contrast MR#: [id number] Acct: [id number] Name: CHRISTY FRANCIS Rep #: [id number] : 1950 F 74 From: Thee Ignacio MD PCP: Dr. Marielos Perla, DO Status: [facility] ER Study: CTA Chest W/WO Contrast Date of Exam: 01/07/25 Exam# [id number] Ordering Dr: Elena Bill MD PROCEDURE: CTA [...] Contrast IMPRESSION: No significant abnormality [facility] CC: Dr. Elena Bill MD; Dr. Marielos Perla DO Manager Play: Signed Normal [facility] Carbon dioxide, total [Moles /volume] in Central venous bloodOrdered By: Elena Bill on 01-07-2025 CO2 [Moles/Vol] 25.3 mmol/L 21.0-32.0 [facility] Chest PA and Lateralon 01-07 Chest PA and Lateral [facility] Imaging Services [address] [place] [id number] Chest PA and Lateral MR#: [id number] Acct: [id number] Name: CHRISTY FRANCIS Rep #: [id number] : 1950 F 74 From: Felisa Haines MD PCP: Dr. Marielos Perla DO Status: REG ER Study: Chest PA and Lateral Date of Exam: 01/07/25 Exam# [id number] Ordering Dr: Elena Bill MD PROCEDURE: CHEST [...] Elena Bill MD; Dr. Marielos Perla DO Manager Play: Signed [facility] Chloride assayOrdered By: Tomasz Bill on 01-07-2025 Chloride [Moles/Vol] 99 mmol/L 98-108 [facility] D-Dimer Quantitative (DVT/PE )on 01-07-2025 D-DIMER QUANT 0.83 FEU/ug/m Invalid Interpretation Code 0.27-0.49 [facility] Comment on above: Result Comment: CRIT ICAL VALUE CALLED TO Dedra DIXON 01/07/25 1321 Lalita Temple. RESULTS READ BACK BY SAME. D-Dimer ELEVATED (>0.49): Additional studies and clinical assessments are indicated to conclude diagnosis of: Deep Vein Thrombosis (DVT) or Pulmonary Embolism (PE) Performed By: #### L 300.8000 ####[facility] [id number] [facility] [place], [address] Emergency Department Summary on 01-07-2025 Emergency Department Summary [facility] Medical Records Department [address] [place] [address] Emergency Department Summary 01/07/25 MR#: [id number] Acct: [id number] Name: CHRISTY FRANCIS Rep #: [id number] : 1950 74 From: Elena Bill MD PCP: Dr. Marielos Perla DO Status:REG ER Location: ED HPI History of Present Illness Chief Complaint: Chest Pain Narrative Narrative: Patient is a 74-year-old female presenting to the emergency department for chest pain that started around 9 AM this morning. Patient has a past medical history of a CABG in 2019 at [facility], palpitations, hypertension, hyperlipidemia, type 2 diabetes [...] baby aspirin this morning prior to coming. [facility] Medical History Severe left ventricular systolic dysfunction (LVSD) Palpitations Right rotator cuff tear Trigger finger of both hands Carpal tunnel syndrome on both sides FHx: cholecystectomy History of left heart catheterization (LHC) ( 06/03/21) Essential hypertension Mechanical loosening of prosthetic knee Atherosclerosis of [place] coronary artery of [place] heart without angina pectoris PAD (peripheral artery [...] and sym (more content not included)... Normal [facility] Glomerular filtration rate ( GFR) estimation/1.73 sq m using serum, plasma, or whole bOrdered By: Elena Bill on 01-07-2025 GFR/1.73 sq M.predicted among non-blacks MDRD (S/P/Bld) [Vol rate/Area] 45 mL/min/{1.73_m2} Low >60 [facility] Comment on above: mL/min/1.73m2 CKD-EP I Creatinine Equation (2020) H AND P Exam - [facility] 01-07-2025 H&P Exam - Hospitalist [facility] Medical Records Department [address] [place] [address] H P Exam - Hospitalist 01/07/25 1436 MR#: [id number] Acct: [id number] Name: CHRISTY FRANCIS Rep #: [id number] : 1950 74 From: Maritza Suresh MD PCP: Dr. Marielos Perla, DO Status:ADM BRIAN Location: [place] [address] HPI - General General Date of Admission: [...] a history of CABG in [address] [facility] as well as peripheral artery disease, hyperlipidemia and type 2 diabetes mellitus. She also admitted to [facility] for several weeks prior to [...] managed for chest pain rule out ACS. [facility] Medical History Severe left ventricular systolic dysfunction (LVSD) Palpitations Right rotator cuff tear Trigger finger of both hands Carpal tunnel syndrome on both sides FHx: cholecystectomy History of left heart catheterization (LHC) ( 06/03/21) Essential hypertension Mechanical loosening of prosthetic knee Atherosclerosis of [place] coronary artery of [place] heart without angina pectoris PAD (peripheral artery [...] frequency: hol (more content not included)... Normal [facility] [employer] normalized rat io (INR) calculationOrdered By: Elena Bill on 01-07-2025 INR Coag (Bld) [Relative time] 1.1 {INR} [facility] L501.4021on 01-07-2025 Trop T High Sen 27 ng/L High <=14 [facility] Comment on above: Performed By: #### L 501.080 #### [facility] [address] [place], [address] Partial Thromboplast Timeon 01-07-2025 aPTT Coag (Bld) [Time] 26.9 s Normal 24.1-36.2 [facility] Comment on above: Order Comment: Comme nts: If not done in prior 24 hours Performed By: #### L 501.080 #### [facility] [address] [place], [place], [address] Potassium measurement (mass/ volume)Ordered By: Elena Bill on 01-07-2025 Potassium (Unsp spec) [Mass/Vol] 4.0 mmol/L 3.3-5.1 [facility] Prothrombin Time w/INRon INR Coag (PPP) [Relative time] 1.1 {INR} Normal [facility] Comment on above: Order Comment: Comme nts: If not done in prior 24 hours Performed By: #### L 501.080 #### [facility] [address] [place], [address] PT Coag (PPP) [Time] 14.2 s Normal 11.7-14.9 [facility] Comment on above: Order Comment: Comme nts: If not done in prior 24 hours Performed By: #### L 501.080 #### [facility] [address] [place], [address] Prothrombin timeOrdered By: Elena Bill on 01-07-2025 PT Coag (PPP) [Time] 14.2 s 11.7-14.9 [facility] Serum creatinine measurement (mass/volume)Ordered By: Elena Bill on 01-07-2025 Creatinine [Mass/Vol] 1.26 mg/dL High 0.70-1.20 [facility] Serum glucose measurement (m ass/volume)Ordered By: Elena Bill on 01-07-2025 Glucose [Mass/Vol] 186 mg/dL High 70-99 [facility] Serum or plasma calcium shannon urement (mass/volume)Ordered By: Elena Bill on 01-07-2025 Calcium [Mass/Vol] 9.5 mg/dL 7.6-11.0 [facility] Serum or plasma urea nitroge n measurement (mass/volume)Ordered By: Elena Bill on 01-07-2025 Urea nitrogen [Mass/Vol] 29 mg/dL High 4-19 [facility] Sodium levelOrdered By: Grant Bill on 01-07-2025 Sodium [Moles/Vol] 138 mmol/L 133-145 [facility] Troponin T HS 2 HRon 025 Trop T High Sen 28 ng/L High <=14 [facility] Comment on above: Performed By: #### L 501.080 #### [facility] [address] [place], [address] Troponin T HS 4 HRon 025 Trop T High Sen 27 ng/L High <=14 [facility] Comment on above: Performed By: #### L 501.080 #### [facility] [address] [place], [address] Troponin T.cardiac [Mass/vol ume] in Serum or Plasma by High sensitivity methodOrdered By: Elena Bill on 01-07-2025 Troponin T.cardiac High sensitivity method [Mass/Vol] 27 ng/L High <14 [facility] Troponin T.cardiac High sensitivity method [Mass/Vol] 28 ng/L High <14 [facility] Troponin T.cardiac High sensitivity method [Mass/Vol] 27 ng/L High <14 [facility] MR/BMS.BVSon 01-03-2025 MR/BMS.BVS [facility] [address] [place] [address] OFFICE VISIT Date of Service: 01/03/25 MR#: [id number] Acct: [id number] Name: CHRISTY FRANCIS Rep #: [id number] : 1950 Provider: SKYLER Watson Age/Sex: 74/F Location: [facility] Status: Signed Intake Vital Signs 11/02/24 [...] Mechanical loosening of prosthetic knee Atherosclerosis of [place] coronary artery of [place] heart without angina pectoris PAD (peripheral artery [...] of we (more content not included)... [facility] Arterial study reportOrdered By: Grant Torres on 12-25-2024 Noninvasive arteriosclerosis study report [facility] [place] [address] Lower Ext Art Exam w/ Exercise 12/22/24 0956 MR#: [id number] Acct: [id number] Name: CHRISTY FRANCIS Rep #:[id number] : 1950 74 From: Grant Mendez Attending Dr: SKYLER Watson Stat us: REG CLI Ordering Dr: Ava Young Date: Location: [facility] Sex: F C Admitted: Reason For Study [...] Date Dictated: 12/22/24955 Date Transcribed: 12/25/24 123 Manager Play: Signed [facility] Work Phone: Lower Ext Art Exam w/ Exerci mai 12-22-2024 Lower Ext Art Exam w/ Exercise [facility] [address] [place] [address] Lower Ext Art Exam w/ Exercise 12/22/24955 MR#: [id number] Acct: [id number] Name: CHRISTY FRANCIS Rep #: [id number] : 1950 74 From: Grant Torres MD Attending Dr: SKYLER Watson Status: REG CLI Ordering Dr: Ava Young Date: 12/22/24 Location: [facility] Sex: F C Admitted: Reason For Study [...] Date Dictated: 12/22/2456 Date Transcribed: 12/25/24 1238 Manager Play: Signed [facility] Lumbar Spine 2 or 3 Viewson 12-22-2024 Lumbar Spine 2 or 3 Views [facility] Imaging Services [address] [place] [address] Lumbar Spine 2 or 3 Views MR#: [id number] Acct: [id number] Name: CHRISTY FRANCIS Rep #: [id number] : 1950 F 74 From: Ted Bullock MD PCP: Dr. Marielos Perla DO Status: REG CLI Study: Lumbar Spine 2 or 3 Views Date of Exam: Exam# [id number] Ordering Dr: Ava Young EXAM: XR Lumbosacral [...] changes lumbar spine as described. Reading Location: [facility] CC: SKYLER Watson; Dr. Marielos Perla DO Manager Play: Signed Normal [facility] MR/BMS.BVSon 12-12-2024 MR/BMS.BVS [facility] Surgery [address] [place] [address] OFFICE VISIT Date of Service: 12/12/24 MR#: [id number] Acct: [id number] Name: CHRISTY FRANCIS Rep #: [id number] : 1950 Provider: SKYLER Watson Age/Sex: 74/F Location: [facility] Status: Signed Intake Vital Signs 11/02/24 [...] you fallen in the past year?: No [facility] History Severe left ventricular systolic dysfunction (LVSD) Palpitations Right rotator cuff tear Trigger finger of both hands Carpal tunnel syndrome on both sides FHx: cholecystectomy History of left heart catheterization (LHC) ( 06/03/21) Essential hypertension Mechanical loosening of prosthetic knee Atherosclerosis of [place] coronary artery of [place] heart without angina pectoris PAD (peripheral artery [...] accompanied to her appointment today by her xrxwesgo-ac-sad Lynda who is an RN and helps [...] her k (more content not included)... [facility] Anion gap in Serum or Plasma Ordered By: Jennifer Bailey on 12-06-2024 Anion gap [Moles/Vol] 14 mmol[facility]L 08-[facility] BUN/creatinine ratioOrdered By: Jennifer Bailey on 12-06-2024 Urea nitrogen/Creatinine [Mass ratio] 22.5 mg/mg High 02-05 [facility] Basic Metabolic Profile (BMP )on 12-06-2024 BUN/CRE 22.5 RATIO High 02-05 [facility] Comment on above: Performed By: #### L 501.080 #### [facility] [address] [place], [address] Calcium [Mass/Vol] 9.5 mg/dL Normal 7.6-11.0 [facility] Comment on above: Performed By: #### L 501.080 #### [facility] [address] [place], [address] Chloride [Moles/Vol] 98 mmol/L Normal 98-108 [facility] Comment on above: Performed By: #### L 501.080 #### [facility] [address] [place], [address] CO2 [Moles/Vol] 26.5 mmol/L Normal 21.0-32.0 [facility] Comment on above: Performed By: #### L 501.080 #### [facility] [address] [place], [address] Creatinine [Mass/Vol] 1.42 mg/dL High 0.70-1.20 [facility] Comment on above: Performed By: #### L 501.080 #### [facility] [address] [place], [address] GAP 14 Normal 5-15 [facility] Comment on above: Performed By: #### L 501.080 #### [facility] [address] [place], [address] GFR/1.73 sq M.predicted among non-blacks MDRD (S/P/Bld) [Vol rate/Area] 39 mL/min/{1.73_m2} Low >60 [facility] Comment on above: Result Comment: mL/m in/1.73m2 CKD-EPI Creatinine Equation (2020) Performed By: #### L 501.080 #### [facility] [address] [place], [address] Glucose [Mass/Vol] 169 mg/dL High 70-99 [facility] Comment on above: Performed By: #### L 501.080 #### [facility] [address] [place], [address] Potassium [Moles/Vol] 4.2 mmol/L Normal 3.3-5.1 [facility] Comment on above: Performed By: #### L 501.080 #### [facility] [address] [place], [address] Sodium [Moles/Vol] 138 mmol/L Normal 133-145 [facility] Comment on above: Performed By: #### L 501.080 #### [facility] [address] [place], [address] Urea nitrogen [Mass/Vol] 32 mg/dL High 4-19 [facility] Comment on above: Performed By: #### L 501.080 #### [facility] [address] [place], [address] Carbon dioxide, total [Moles /volume] in Central venous bloodOrdered By: Jennifer Bailey on 12-06-2024 CO2 [Moles/Vol] 26.5 mmol/L 21.0-32.0 [facility] Chloride assayOrdered By: Shantell Bailey on 12-06-2024 Chloride [Moles/Vol] 98 mmol/L 98-108 [facility] Glomerular filtration rate ( GFR) estimation/1.73 sq m using serum, plasma, or whole bOrdered By: Jennifer Bailey on 12-06-2024 GFR/1.73 sq M.predicted among non-blacks MDRD (S/P/Bld) [Vol rate/Area] 39 mL/min/{1.73_m2} Low >60 [facility] Comment on above: mL/min/1.73m2 CKD-EP I Creatinine Equation (2020) Potassium measurement (mass/ volume)Ordered By: Jennifer Bailey on 12-06-2024 Potassium (Unsp spec) [Mass/Vol] 4.2 mmol/L 3.3-5.1 [facility] Serum creatinine measurement (mass/volume)Ordered By: Jennifer Bailey on 12-06-2024 Creatinine [Mass/Vol] 1.42 mg/dL High 0.70-1.20 [facility] Serum glucose measurement (m ass/volume)Ordered By: Jennifer Bailey on 12-06-2024 Glucose [Mass/Vol] 169 mg/dL High 70-99 [facility] Serum or plasma calcium shannon urement (mass/volume)Ordered By: Jennifer Bailey on 12-06-2024 Calcium [Mass/Vol] 9.5 mg/dL 7.6-11.0 [facility] Serum or plasma urea nitroge n measurement (mass/volume)Ordered By: Jennifer Bailey on 12-06-2024 Urea nitrogen [Mass/Vol] 32 mg/dL High 4-19 [facility] Sodium levelOrdered By: Estiven Bailey on 12-06-2024 Sodium [Moles/Vol] 138 mmol/L 133-145 [facility] Pelvic w/ Transvaginalon Pelvic w/ Transvaginal [facility] [address] [place], [place] [id number] Pelvic w/ Transvaginal MR#: [id number] Acct: [id number] Name: CHRISTY FRANCIS Rep #: [id number] : 1950 F 74 From: Demarcus dominguez MD PCP: Dr. Marielos Perla DO Status: REG CLI Study: Pelvic w/ Transvaginal Date of Exam: 11/29/24 Exam# [id number] Ordering Dr: Marielos Perla DO PROCEDURE: PELVIC [...] Endometrial thickening. Clinical correlation recommended. Reading Location: [id number] CC: Dr. Marielos Perla DO Manager Play: Signed Normal [facility] Anion gap in Serum or Plasma Ordered By: Jennifer Bailey on 11-02-2024 Anion gap [Moles/Vol] 15 mmol/L 5-15 [facility] BUN/creatinine ratioOrdered By: Jennifer Bailey on 11-02-2024 Urea nitrogen/Creatinine [Mass ratio] 20.1 mg/mg High - [facility] Basic Metabolic Profile (BMP )on 11-02-2024 BUN/CRE 20.1 RATIO High 02-05 [facility] Comment on above: Performed By: #### L 501.080 #### [facility] [place], [address] Calcium [Mass/Vol] 9.9 mg/dL Normal 7.6-11.0 [facility] Comment on above: Performed By: #### L 501.080 #### [facility] [address] [place], [address] Chloride [Moles/Vol] 98 mmol/L Normal 98-108 [facility] Comment on above: Performed By: #### L 501.080 #### [facility] [address] [place], [address] CO2 [Moles/Vol] 23.7 mmol/L Normal 21.0-32.0 [facility] Comment on above: Performed By: #### L 501.080 #### [facility] [address] [place], [address] Creatinine [Mass/Vol] 1.77 mg/dL High 0.70-1.20 [facility] Comment on above: Performed By: #### L 501.080 #### [facility] [address] [place], [address] GAP 15 Normal 5-15 [facility] Comment on above: Performed By: #### L 501.080 #### [facility] [address] [place], [address] GFR/1.73 sq M.predicted among non-blacks MDRD (S/P/Bld) [Vol rate/Area] 30 mL/min/{1.73_m2} Low >60 [facility] Comment on above: Result Comment: mL/m in/1.73m2 CKD-EPI Creatinine Equation (2020) Performed By: #### L 501.080 #### [facility] [address] [place], [address] Glucose [Mass/Vol] 127 mg/dL High 70-99 [facility] Comment on above: Performed By: #### L 501.080 #### [facility] [address] [place], [address] Potassium [Moles/Vol] 4.8 mmol/L Normal 3.3-5.1 [facility] Comment on above: Performed By: #### L 501.080 #### [facility] [address] [place], [address] Sodium [Moles/Vol] 137 mmol/L Normal 133-145 [facility] Comment on above: Performed By: #### L 501.080 #### [facility] [address] [place], [address] Urea nitrogen [Mass/Vol] 36 mg/dL High 4-19 [facility] Comment on above: Performed By: #### L 501.080 #### [facility] [address] [place], [address] Carbon dioxide, total [Moles /volume] in Central venous bloodOrdered By: Jennifer Bailey on 11-02-2024 CO2 [Moles/Vol] 23.7 mmol/L 21.0-32.0 [facility] Cardiology Visit Reporton Cardiology Visit Report [facility] [place] [facility] [address] [place], [place] [address] OFFICE VISIT Date of Service: 11/02/24 MR#: [id number] Acct: [id number] Name: CHRISTY FRANCIS Rep #: [id number] : 1950 Provider: SKYLER Low Age/Sex: 74/F Location: [facility] Status: Signed HPI HPI History of Present Illness Details: This is a 74-year-old white female who presents today for outpatient cardiovascular follow-up visit. She has a history of underlying CAD status post CABG ([facility]: 02-27-2019: GIRALDO to the LAD, SVG [...] Monitor Intake Visit Reasons: 1 Y FU Anesthesiology Tech Required: No Accompanied by: Self Is patient [...] Mechanical loosening of prosthetic knee Atherosclerosis of [place] coronary artery of [place] heart without angina pectoris PAD (peripheral artery disease) HLD (hyperlipidemia) Type II diabetes mellitus Surgical History History of coronary artery bypass graft x 3 ( 02/27/19) History of prosthetic unicompartmental arthroplasty of left knee Family History Mother Heart disease Social History Smoking Status: Light Smoker (<10/day) alcohol intake: current alcohol intake frequency: ho (more content not included)... Normal [facility] Chloride assayOrdered By: Shantell Bailey on 11-02-2024 Chloride [Moles/Vol] 98 mmol/L 98-108 [facility] Glomerular filtration rate ( GFR) estimation/1.73 sq m using serum, plasma, or whole bOrdered By: Jennifer Bailey on 11-02-2024 GFR/1.73 sq M.predicted among non-blacks MDRD (S/P/Bld) [Vol rate/Area] 30 mL/min/{1.73_m2} Low >60 [facility] Comment on above: mL/min/1.73m2 CKD-EP I Creatinine Equation (2020) Potassium measurement (mass/ volume)Ordered By: Jennifer Bailey on 11-02-2024 Potassium (Unsp spec) [Mass/Vol] 4.8 mmol/L 3.3-5.1 [facility] Serum creatinine measurement (mass/volume)Ordered By: Jennifer aBiley on 11-02-2024 Creatinine [Mass/Vol] 1.77 mg/dL High 0.70-1.20 [facility] Serum glucose measurement (m ass/volume)Ordered By: Jennifer Bailey on 11-02-2024 Glucose [Mass/Vol] 127 mg/dL High 70-99 [facility] Serum or plasma calcium shannon urement (mass/volume)Ordered By: Jennifer Bailey on 11-02-2024 Calcium [Mass/Vol] 9.9 mg/dL 7.6-11.0 [facility] Serum or plasma urea nitroge n measurement (mass/volume)Ordered By: Jennifer Bailey on 11-02-2024 Urea nitrogen [Mass/Vol] 36 mg/dL High 4-19 [facility] Sodium levelOrdered By: Estiven Bailey on 11-02-2024 Sodium [Moles/Vol] 137 mmol/L 133-145 [facility] L/S Spine Min 4 Viewson 06- L/S Spine Min 4 Views [facility] [address] [place] [address] L/S Spine Min 4 Views MR#: [id number] Acct: [id number] Name: CHRISTY FRANCIS Rep #: [id number] : 1950 F 74 From: Bryce Serrano MD PCP: Dr. Marielos Perla DO Status: REG CLI Study: L/S Spine Min 4 Views Date of Exam: 09/18/24 Exam# [id number] Ordering Dr: Rand Mckeon PROCEDURE: L/S SPINE MIN 4 VIEWS 09/18/2024 REASON FOR EXAM: PAIN, SCIATICA TECHNIQUE: Four views of the lumbar spine COMPARISON: None FINDINGS: There are 5 [id number] lumbar-type vertebral bodies. The pars are not [...] on L5 is likely degenerative. Reading Location: [id number] CC: JOHNATHON Mckeon; Dr. Marielos Perla DO Manager Play: Signed Normal [facility] Cardiology Visit Reporton Cardiology Visit Report [facility] [address] [facility] [place] [address] OFFICE VISIT Date of Service: 06/05/24 MR#: [id number] Acct: [id number] Name: CHRISTY FRANCIS Rep #: [id number] : 1950 Provider: JOHNATHON olivas Age/Sex: 74/F Location: [facility] Status: Signed HPI HPI History of Present Illness Details: This is a 74-year-old white female who presents today for outpatient cardiovascular follow-up visit. She has a history of underlying CAD status post CABG ([facility]: 02-27-2019: GIRALDO to the LAD, SVG [...] NIBP Intake Visit Reasons: 3 M FU Anesthesiology Tech Required: No Is patient in pain?: No [...] Mechanical loosening of prosthetic knee Atherosclerosis of [place] coronary artery of [place] heart without angina pectoris PAD (peripheral artery disease) HLD (hyperlipidemia) Type II diabetes mellitus Surgical History (Updated 06/05/24 @ 11:25 by Charlie Johnson FRAMER, FRAMER-C) History of coronary artery bypass graft x 3 ( 02/27/19) History of prosthetic unicompartmental arthroplasty of left knee Family History Mother Heart disease So (more content not included)... Normal [facility] Cardiology Visit Reporton Cardiology Visit Report [facility] [address] [place] [address] OFFICE VISIT Date of Service: 03/09/24 MR#: [id number] Acct: [id number] Name: CHRISTY FRANCIS Rep #: [id number] : 1950 Provider: JOHNATHON olivas Age/Sex: 74/F Location: [facility] Status: Signed HPI HPI History of Present Illness Details: This is a 74-year-old white female who presents today for outpatient cardiovascular follow-up visit. She has a history of underlying CAD status post CABG ([facility]: 02-27-2019: GIRALDO to the LAD, SVG [...] Pulse Source NIBP Intake Visit Reasons: S/P [facility] 02/20 Anesthesiology Tech Required: No Is patient in pain?: No [...] Mechanical loosening of prosthetic knee Atherosclerosis of [place] coronary artery of [place] heart without angina pectoris PAD (peripheral artery [...] frequency: holidays/ (more content not included)... Normal [facility] Basic Metabolic Profile (BMP )on 02-23-2024 BUN Normal - [facility] Comment on above: Result Comment: Canc elled via OM: Order cancelled - Patient discharged Performed By: #### L 501.080 #### [facility] [address] [place], [place], [id number] BUN/CRE Normal - [facility] Comment on above: Result Comment: Canc elled via OM: Order cancelled - Patient discharged Performed By: #### L 501.080 #### [facility] [address] [place], [address] CA,Total Normal 8.5-10.1 [facility] Comment on above: Result Comment: Canc elled via OM: Order cancelled - Patient discharged Performed By: #### L 501.080 #### [facility] [address] [place], [address] CL Normal 98-107 [facility] Comment on above: Result Comment: Canc elled via OM: Order cancelled - Patient discharged Performed By: #### L 501.080 #### [facility] [address] [place], [address] CO2 Normal 21.0-32.0 [facility] Comment on above: Result Comment: Canc elled via OM: Order cancelled - Patient discharged Performed By: #### L 501.080 #### [facility] [address] [place], [address] CREAT,SERUM Normal 0.55-1.02 [facility] Comment on above: Result Comment: Canc elled via OM: Order cancelled - Patient discharged Performed By: #### L 501.080 #### [facility] [address] [place], [address] EST GFR Normal >60 [facility] Comment on above: Result Comment: Canc elled via OM: Order cancelled - Patient discharged Performed By: #### L 501.080 #### [facility] [address] [place], [address] EST GFR - AA Normal >60 [facility] Comment on above: Result Comment: Canc elled via OM: Order cancelled - Patient discharged Performed By: #### L 501.080 #### [facility] [address] [place], [address] GAP Normal 5-15 [facility] Comment on above: Result Comment: Canc elled via OM: Order cancelled - Patient discharged Performed By: #### L 501.080 #### [facility] [address] [place], [address] GLU Normal 74-106 [facility] Comment on above: Result Comment: Canc elled via OM: Order cancelled - Patient discharged Performed By: #### L 501.080 #### [facility] [address] [place], [address] Potassium Normal 3.5-5.1 [facility] Comment on above: Result Comment: Canc elled via OM: Order cancelled - Patient discharged Performed By: #### L 501.080 #### [facility] [address] [place], [address] Basic Metabolic Profile (BMP) Normal 136-145 [facility] Comment on above: Result Comment: Canc elled via OM: Order cancelled - Patient discharged Performed By: #### L 501.080 #### [facility] [address] [place], [address] CBC W/Diff, Automatedon 11-0 -2023 Absolute Neut Normal 2.0-7.7 [facility] Comment on above: Result Comment: Canc elled via OM: Order cancelled - Patient discharged Performed By: #### L 501.080 #### [facility] [address] [place], [address] HCT Normal 37-47 [facility] Comment on above: Result Comment: Canc elled via OM: Order cancelled - Patient discharged Performed By: #### L 501.080 #### [facility] [address] [place], [address] HGB Normal 12.0-15.0 [facility] Comment on above: Result Comment: Canc elled via OM: Order cancelled - Patient discharged Performed By: #### L 501.080 #### [facility] [address] [place], [address] MCH Normal 27.0-32.0 [facility] Comment on above: Result Comment: Canc elled via OM: Order cancelled - Patient discharged Performed By: #### L 501.080 #### [facility] [address] [place], [address] MCHC Normal 32-36 [facility] Comment on above: Result Comment: Canc elled via OM: Order cancelled - Patient discharged Performed By: #### L 501.080 #### [facility] [address] [place], [address] MCV Normal 81-99 [facility] Comment on above: Result Comment: Canc elled via OM: Order cancelled - Patient discharged Performed By: #### L 501.080 #### [facility] [address] [place], [address] NEUT% Normal 47-70 [facility] Comment on above: Result Comment: Canc elled via OM: Order cancelled - Patient discharged Performed By: #### L 501.080 #### [facility] [address] [place], [address] PLT Normal 150-450 [facility] Comment on above: Result Comment: Canc elled via OM: Order cancelled - Patient discharged Performed By: #### L 501.080 #### [facility] [address] [place], [address] RBC Normal 4.2-5.4 [facility] Comment on above: Result Comment: Canc elled via OM: Order cancelled - Patient discharged Performed By: #### L 501.080 #### [facility] [address] [place], [address] RDW CV Normal 11.6-14.6 [facility] Comment on above: Result Comment: Canc elled via OM: Order cancelled - Patient discharged Performed By: #### L 501.080 #### [facility] [address] [place], [address] RDW SD Normal 35.1-43.9 [facility] Comment on above: Result Comment: Canc elled via OM: Order cancelled - Patient discharged Performed By: #### L 501.080 #### [facility] [address] [place], [address] WBC Normal 4.4-11.0 [facility] Comment on above: Result Comment: Canc elled via OM: Order cancelled - Patient discharged Performed By: #### L 501.080 #### [facility] [address] [place], [address] Basic Metabolic Profile (BMP )on 02-22-2024 BUN Normal 7-18 [facility] Comment on above: Result Comment: Canc elled via OM: Order cancelled - Patient discharged Performed By: #### L 500.2500, L100.0100 ####[facility] [address] [place], [address] BUN/CRE Normal 10-20 [facility] Comment on above: Result Comment: Canc elled via OM: Order cancelled - Patient discharged Performed By: #### L 500.2500, L100.0100 ####[facility] [address] [place], [address] CA,Total Normal 8.5-10.1 [facility] Comment on above: Result Comment: Canc elled via OM: Order cancelled - Patient discharged Performed By: #### L 500.2500, L100.0100 ####[facility] [address] [place], [address] CL Normal 98-107 [facility] Comment on above: Result Comment: Canc elled via OM: Order cancelled - Patient discharged Performed By: #### L 500.2500, L100.0100 ####[facility] [address] [place], [address] CO2 Normal 21.0-32.0 [facility] Comment on above: Result Comment: Canc elled via OM: Order cancelled - Patient discharged Performed By: #### L 500.2500, L100.0100 ####[facility] [address] [place], [address] CREAT,SERUM Normal 0.55-1.02 [facility] Comment on above: Result Comment: Canc elled via OM: Order cancelled - Patient discharged Performed By: #### L 500.2500, L100.0100 ####[facility] [address] [place], [address] EST GFR Normal >60 [facility] Comment on above: Result Comment: Canc elled via OM: Order cancelled - Patient discharged Performed By: #### L 500.2500, L100.0100 ####[facility] [address] [place], [address] EST GFR - AA Normal >60 [facility] Comment on above: Result Comment: Canc elled via OM: Order cancelled - Patient discharged Performed By: #### L 500.2500, L100.0100 ####[facility] [address] [place], [address] GAP Normal 5-15 [facility] Comment on above: Result Comment: Canc elled via OM: Order cancelled - Patient discharged Performed By: #### L 500.2500, L100.0100 ####[facility] [address] [place], [address] GLU Normal 74-106 [facility] Comment on above: Result Comment: Canc elled via OM: Order cancelled - Patient discharged Performed By: #### L 500.2500, L100.0100 ####[facility] [address] [place], [address] Potassium Normal 3.5-5.1 [facility] Comment on above: Result Comment: Canc elled via OM: Order cancelled - Patient discharged Performed By: #### L 500.2500, L100.0100 ####[facility] [address] [place], [address] Basic Metabolic Profile (BMP) Normal 136-145 [facility] Comment on above: Result Comment: Canc elled via OM: Order cancelled - Patient discharged Performed By: #### L 500.2500, L100.0100 ####[facility] [address] [place], [address] CBC W/Diff, Automatedon 11-0 -2023 Absolute Neut Normal 2.0-7.7 [facility] Comment on above: Result Comment: Canc elled via OM: Order cancelled - Patient discharged Performed By: #### L 500.2500, L100.0100 ####[facility] [address] [place], [address] HCT Normal 37-47 [facility] Comment on above: Result Comment: Canc elled via OM: Order cancelled - Patient discharged Performed By: #### L 500.2500, L100.0100 ####[facility] [address] [place], [address] HGB Normal 12.0-15.0 [facility] Comment on above: Result Comment: Canc elled via OM: Order cancelled - Patient discharged Performed By: #### L 500.2500, L100.0100 ####[facility] [address] [place], [address] MCH Normal 27.0-32.0 [facility] Comment on above: Result Comment: Canc elled via OM: Order cancelled - Patient discharged Performed By: #### L 500.2500, L100.0100 ####[facility] [address] [place], [address] MCHC Normal 32-36 [facility] Comment on above: Result Comment: Canc elled via OM: Order cancelled - Patient discharged Performed By: #### L 500.2500, L100.0100 ####[facility] [address], [address] MCV Normal 81-99 [facility] Comment on above: Result Comment: Canc elled via OM: Order cancelled - Patient discharged Performed By: #### L 500.2500, L100.0100 ####[facility] [address], [address] NEUT% Normal 47-70 [facility] Comment on above: Result Comment: Canc elled via OM: Order cancelled - Patient discharged Performed By: #### L 500.2500, L100.0100 ####[facility] [address] [place], [address] PLT Normal 150-450 [facility] Comment on above: Result Comment: Canc elled via OM: Order cancelled - Patient discharged Performed By: #### L 500.2500, L100.0100 ####[facility] [address] [place], [address] RBC Normal 4.2-5.4 [facility] Comment on above: Result Comment: Canc elled via OM: Order cancelled - Patient discharged Performed By: #### L 500.2500, L100.0100 ####[facility] [address] [place], [address] RDW CV Normal 11.6-14.6 [facility] Comment on above: Result Comment: Canc elled via OM: Order cancelled - Patient discharged Performed By: #### L 500.2500, L100.0100 ####[facility] [address] [place], [address] RDW SD Normal 35.1-43.9 [facility] Comment on above: Result Comment: Canc elled via OM: Order cancelled - Patient discharged Performed By: #### L 500.2500, L100.0100 ####[facility] [address] [place], [address] WBC Normal 4.4-11.0 [facility] Comment on above: Result Comment: Canc elled via OM: Order cancelled - Patient discharged Performed By: #### L 500.2500, L100.0100 ####[facility] [address], [address] 12 Lead EKGon 02-21-2024 12 Lead EKG [facility] [address] [place] [address] 12 Lead EKG 02/19/242009 MR#: [id number] Acct: [id number] Name: CHRISTY FRANCIS Rep #: [id number] : 1950 74 From: Jos Chandra MD Attending Dr: Dr. Kaushik Castro MD Status: DIS BRIAN Ordering Dr: Grant Castelan DO Date: 02/21/24 Location: [facility] Sex: F C Admitted: 02/19/24 [...] DATA IS UNCONFIRMED Confirmed by Jos Chandra ([id number]), make up editor SHILPA VALENZUELA ([id number]) on 02/22/2024 9:27:09 AM Referred By: Confirmed By: Jos Chandra 02/22/2427 Date Jos Chandra MD CC: Dr. Kaushik Castro MD; Dr. Grant Castelan DO; Dr. Marielos Perla DO Signed Normal [facility] Basic Metabolic Profile (BMP )on 02-21-2024 BUN/CRE 17.9 RATIO Normal 02-05 [facility] Comment on above: Performed By: #### L 501.080 #### [facility] [address] [place], [address] CA,Total 8.9 mg/dL Normal 8.5-10.1 [facility] Comment on above: Performed By: #### L 501.080 #### [facility] [address] [place], [address] Chloride [Moles/Vol] 107 mmol/L Normal 98-107 [facility] Comment on above: Performed By: #### L 501.080 #### [facility] [address] [place], [address] CO2 [Moles/Vol] 25.0 mmol/L Normal 21.0-32.0 [facility] Comment on above: Performed By: #### L 501.080 #### [facility] [address] [place], [address] Creatinine [Mass/Vol] 1.17 mg/dL High 0.55-1.02 [facility] Comment on above: Result Comment: The validity of the calculated GFR GFRAA in patients over 70 years has not been determined. Clinical correlation is essential. Performed By: #### L 501.080 #### [facility] [address] [place], [address] ECRCL 42.98 ml/min Normal [facility] Comment on above: Performed By: #### L 501.080 #### [facility] [address] [place], [address] EST GFR - AA 58 mL/min Low >60 [facility] Comment on above: Result Comment: Afri can [place] GFR Calc Performed By: #### L 501.080 #### [facility] [address] [place], [address] GAP 7 Normal 5-15 [facility] Comment on above: Performed By: #### L 501.080 #### [facility] [address] [place], [address] GFR/1.73 sq M.predicted among non-blacks MDRD (S/P/Bld) [Vol rate/Area] 48 mL/min/{1.73_m2} Low >60 [facility] Comment on above: Result Comment: Non- GFR Calc Performed By: #### L 501.080 #### [facility] [address] [place], [address] Glucose [Mass/Vol] 131 mg/dL High 74-106 [facility] Comment on above: Result Comment: Fast ing Glucose result greater than or equal to 126 mg/dL suggests DIABETES MELLITUS per A.D.A. criteria. Performed By: #### L 501.080 #### [facility] [address] [place], [address] Potassium [Moles/Vol] 3.6 mmol/L Normal 3.5-5.1 [facility] Comment on above: Performed By: #### L 501.080 #### [facility] [address] [place], [address] Sodium [Moles/Vol] 138 mmol/L Normal 136-145 [facility] Comment on above: Performed By: #### L 501.080 #### [facility] [address] [place], [address] Urea nitrogen [Mass/Vol] 21 mg/dL High 7-18 [facility] Comment on above: Performed By: #### L 501.080 #### [facility] [address] [place], [address] Bedside Glucoseon 02-21-2024 FINGERSTICK GLU 204 mg/dL High 74-106 [facility] Comment on above: Result Comment: GENARO DANG OF PATIENT CARE PER NURSING PROTOCOL Performed By: #### L 501.080 #### [facility] [address] [place], [address] FINGERSTICK GLU 180 mg/dL High 74-106 [facility] Comment on above: Result Comment: GENARO DANG OF PATIENT CARE PER NURSING PROTOCOL Performed By: #### L 501.080 #### [facility] [address] [place], [address] CBC W/Diff, Automatedon 11-0 4-2023 Absolute Lymph 1.89 X10 3/uL Normal 0.83-4.51 [facility] Comment on above: Performed By: #### L 501.080 #### [facility] [address] [place], [address] Absolute Neut 5.7 X10 3/uL Normal 2.0-7.7 [facility] Comment on above: Performed By: #### L 501.080 #### [facility] [address] [place], [address] Basophils/100 WBC (Bld) 0.7 % Normal 0-1 [facility] Comment on above: Performed By: #### L 501.080 #### [facility] [address] [place], [address] Eosinophils/100 WBC (Bld) 14.5 % High 0-5 [facility] Comment on above: Performed By: #### L 501.080 #### [facility] [address] [place], [address] Erythrocyte distribution width (RBC) [Ratio] 15.1 % High 11.6-14.6 [facility] Comment on above: Performed By: #### L 501.080 #### [facility] [address] [place], [address] Hematocrit (Bld) [Volume fraction] 42.2 % Normal 37-47 [facility] Comment on above: Performed By: #### L 501.080 #### [facility] [address] [place], [address] Hemoglobin (Bld) [Mass/Vol] 13.8 g/dL Normal 12.0-15.0 [facility] Comment on above: Performed By: #### L 501.080 #### [facility] [address] [place], [address] IG% 0.300 Normal 0.0-0.9 [facility] Comment on above: Result Comment: IG% - Immature Granulocytes (promyelocytes, myelocytes and metamyelocytes) > 1% indicates that a LEFT SHIFT is Present. Performed By: #### L 501.080 #### [facility] [address] [place], [address] Lymphocytes/100 WBC (Bld) 18.9 % Low 19-41 [facility] Comment on above: Performed By: #### L 501.080 #### [facility] [address] [place], [address] MCH (RBC) [Entitic mass] 30.1 pg Normal 27.0-32.0 [facility] Comment on above: Performed By: #### L 501.080 #### [facility] [address] [place], [address] MCHC (RBC) [Mass/Vol] 32.7 g/dL Normal 32-36 [facility] Comment on above: Performed By: #### L 501.080 #### [facility] [address] [place], [address] MCV (RBC) [Entitic vol] 91.9 fL Normal 81-99 [facility] Comment on above: Performed By: #### L 501.080 #### [facility] [address] [place], [address] Monocytes/100 WBC (Bld) 8.4 % Normal 0-10 [facility] Comment on above: Performed By: #### L 501.080 #### [facility] [address] [place], [address] Neutrophils/100 WBC (Bld) 57.2 % Normal 47-70 [facility] Comment on above: Performed By: #### L 501.080 #### [facility] [address] [place], [address] Nucleated RBC (Bld) [#/Vol] 0 10*3/uL Normal 0-5 [facility] Comment on above: Performed By: #### L 501.080 #### [facility] [address] [place], [address] Platelet mean volume (Bld) [Entitic vol] 11.1 fL Normal 6.2-12.0 [facility] Comment on above: Performed By: #### L 501.080 #### [facility] [address] [place], [address] Platelets (Bld) [#/Vol] 260 10*3/uL Normal 150-450 [facility] Comment on above: Performed By: #### L 501.080 #### [facility] [address] [place], [address] RBC (Bld) [#/Vol] 4.59 10*6/uL Normal 4.2-5.4 [facility] Comment on above: Performed By: #### L 501.080 #### [facility] [address] [place], [address] RDW SD 50.9 fl High 35.1-43.9 [facility] Comment on above: Performed By: #### L 501.080 #### [facility] [address] [place], [address] WBC (Bld) [#/Vol] 10.0 10*3/uL Normal 4.4-11.0 [facility] Comment on above: Performed By: #### L 501.080 #### [facility] [address] [place], [address] Magnesiumon 02-21-2024 Magnesium [Mass/Vol] 2.0 mg/dL Normal 1.6-2.6 [facility] [place] Comment on above: Performed By: #### L 501.080 #### [facility] [address] [place], [address] Phosphoruson 02-21-2024 Phosphate [Mass/Vol] 4.4 mg/dL Normal 2.5-4.9 [facility] Comment on above: Performed By: #### L 501.080 #### [facility] [address] [place], [address] Stress Reporton 02-21-2024 Stress Report [facility] [address] [place] [address] MR#: [id number] Acct: [id number] Name: CHRISTY FRANCIS Rep #: [id number] : 1950 74 From: Jorge Anderson MD [...] DO Date Dictated: 02/21/241041 Date Transcribed: 02/21/241041 Manager Play: [place] Signed Normal [facility] BNP,B-Type NATRIURETIC PEPTI Regino 02-20-2024 Natriuretic peptide B (Bld) [Mass/Vol] 20.3 pg/mL Normal 0-100 [facility] Comment on above: Performed By: #### L 501.080 #### [facility] [address] [place], [address] Basic Metabolic Profile (BMP )on 02-20-2024 BUN/CRE 16.1 RATIO Normal 10-20 [facility] Comment on above: Performed By: #### L 501.9520, L500.2500, L501.9985 #### [facility] [address] [place], [address] CA,Total 8.4 mg/dL Low 8.5-10.1 [facility] Comment on above: Performed By: #### L 501.9520, L500.2500, L501.9985 #### [facility] [address] [place], [address] Chloride [Moles/Vol] 107 mmol/L Normal 98-107 [facility] Comment on above: Performed By: #### L 501.9520, L500.2500, L501.9985 #### [facility] [address] [place], [address] CO2 [Moles/Vol] 24.0 mmol/L Normal 21.0-32.0 [facility] Comment on above: Performed By: #### L 501.9520, L500.2500, L501.9985 #### [facility] [address] [place], [address] Creatinine [Mass/Vol] 1.37 mg/dL High 0.55-1.02 [facility] Comment on above: Result Comment: The validity of the calculated GFR GFRAA in patients over 70 years has not been determined. Clinical correlation is essential. Performed By: #### L 501.9520, L500.2500, L501.9985 #### [facility] [address] [place], [address] ECRCL 36.71 ml/min Normal [facility] Comment on above: Performed By: #### L 501.9520, L500.2500, L501.9985 #### [facility] [address] [place], [address] EST GFR - AA 49 mL/min Low >60 [facility] Comment on above: Result Comment: Afri can [place] GFR Calc Performed By: #### L 501.9520, L500.2500, L501.9985 #### [facility] [address] [place], [address] GAP 6 Normal 5-15 [facility] Comment on above: Performed By: #### L 501.9520, L500.2500, L501.9985 #### [facility] [address] [place], [address] GFR/1.73 sq M.predicted among non-blacks MDRD (S/P/Bld) [Vol rate/Area] 40 mL/min/{1.73_m2} Low >60 [facility] Comment on above: Result Comment: Non- GFR Calc Performed By: #### L 501.9520, L500.2500, L501.9985 #### [facility] [address] [place], [address] Glucose [Mass/Vol] 358 mg/dL High 74-106 [facility] Comment on above: Result Comment: Gluc ose result greater than or equal to 200 mg/dL suggests DIABETES MELLITUS per A.D.A. criteria. Performed By: #### L 501.9520, L500.2500, L501.9985 #### [facility] [address] [place], [address] Potassium [Moles/Vol] 3.9 mmol/L Normal 3.5-5.1 [facility] Comment on above: Performed By: #### L 501.9520, L500.2500, L501.9985 #### [facility] [address] [place], [address] Sodium [Moles/Vol] 136 mmol/L Normal 136-145 [facility] Comment on above: Performed By: #### L 501.9520, L500.2500, L501.9985 #### [facility] [address] [place], [address] Urea nitrogen [Mass/Vol] 22 mg/dL High 7-18 [facility] Comment on above: Performed By: #### L 501.9520, L500.2500, L501.9985 #### [facility] [address] [place], [address] Bedside Glucoseon 02-20-2024 FINGERSTICK GLU 129 mg/dL High 74-106 [facility] Comment on above: Result Comment: GENARO GEMENT OF PATIENT CARE PER NURSING PROTOCOL Performed By: #### L 501.080 #### [facility] [address] [place], [address] FINGERSTICK GLU 178 mg/dL High 74-106 [facility] Comment on above: Result Comment: GENARO GEMENT OF PATIENT CARE PER NURSING PROTOCOL Performed By: #### L 501.080 #### [facility] [address] [place], [address] FINGERSTICK GLU 366 mg/dL High 74-106 [facility] Comment on above: Result Comment: GENARO GEMENT OF PATIENT CARE PER NURSING PROTOCOL Performed By: #### L 501.080 #### [facility] [address] [place], [address] FINGERSTICK GLU 391 mg/dL High 74-106 [facility] Comment on above: Result Comment: GENARO GEMENT OF PATIENT CARE PER NURSING PROTOCOL Performed By: #### L 501.080 #### [facility] [address] [place], [address] Consultation - Cardiologyon 02-20-2024 Consultation - Cardiology [facility] [address] [place] [address] Consultation - Cardiology 02/20/24 1012 MR#: [id number] Acct: [id number] Name: CHRISTY FRANCIS Rep #: [id number] : 1950 74 From: Jorge Anderson MD PCP: Dr. Marielos Perla, DO Status:ADM BRIAN Location: [place] [address] Assessment Plan Assessment/Plan (1) Exertional dyspnea: PLAN: [...] of underlying CAD status post CABG ([facility]: 02-27-2019: GIRALDO to the LAD, SVG [...] Mechanical loosening of prosthetic knee Atherosclerosis of [place] coronary artery of [place] heart without angina pectoris PAD (peripheral artery [...] 11/05/23 11:3 (more content not included)... Normal [facility] Echo Completeon 02-20-2024 Echo Complete [facility] [address] [place] [address] Echo Complete 02/21/24 1022 MR#: [id number] Acct: [id number] Name: FRANCIS,CHRISTY Marquita Rep #: [id number] : 1950 74 From: Jorge Anderson MD Attending Dr: Dr. Kaushik Castro MD Status: ADM BRIAN Ordering Dr: Jorge Anderson MD Date: 02/20/24 Location: [facility] Sex: F C Admitted: 02/19/24 [...] Dictated: 02/21/24 1022 Date Transcribed: 02/21/24 1131 Manager Play: Signed Normal [facility] Hemoglobin A1con 02-20-2024 HbA1c (Bld) [Mass fraction] 9.8 % High 3.8-5.6 [facility] Comment on above: Result Comment: Norm al < 5.7 % Prediabetic 5.7 - 6.4 % Diabetic >or= 6.5 % Please note range changes. Performed By: #### L 501.9520, L500.2500, L501.9985 #### [facility] [address] [place], [address] Thyroid Stim Hormone (TSH)on 02-20-2024 TSH 0.994 uIU/mL Normal 0.358-3.740 [facility] Comment on above: Performed By: #### L 501.9520, L500.2500, L501.9985 #### [facility] [address] [place], [address] 12 Lead EKGon 02-19-2024 12 Lead EKG [facility] [address] [place] [address] 12 Lead EKG 02/21/24 0552 MR#: [id number] Acct: [id number] Name: CHRISTY FRANCIS Rep #: [id number] : 1950 74 From: Jos Chandra MD Attending Dr: Dr. Kaushik Castro MD Status: DIS BRIAN Ordering Dr: Grant Castelan DO Date: 02/19/24 Location: [facility] Sex: F C Admitted: 02/19/24 [...] abnormality Abnormal ECG Confirmed by Jos Chandra ([id number]), make up editor SHILPA VALENZUELA ([id number]) on 02/22/2024 9:25:47 AM Referred By: Confirmed By: Jos Chandra 02/22/24 0925 Date Jos Chandra MD CC: Dr. Kuashik Castro MD; Dr. Grant Castelan DO; Dr. Marielos Perla DO Signed Normal [facility] 12 Lead EKG [facility] [address] [facility] [place] [address] 12 Lead EKG 02/19/24 1412 MR#: [id number] Acct: [id number] Name: CHRISTY FRANCIS Rep #: [id number] : 1950 74 From: Jorge Anderson MD Attending Dr: Dr. Kaushik Castro MD Status: ADM BRIAN Ordering Dr: Moris Watson MD Date: 02/19/24 Location: [facility] Sex: F C Admitted: 02/19/24 [...] Abnormal ECG Confirmed by JORGE ANDERSON MD ([id number]), make up editor SHILPA VALENZUELA ([id number]) on 02/21/2024 9:44:03 AM Referred By: Confirmed By: JORGE ANDERSON MD 02/21/24 0944 Date Jorge Anderson MD CC: Dr. Kaushik Castro MD; Dr. Moris Watson MD; Dr. Marielos Perla DO Signed Normal [facility] Basic Metabolic Profile (BMP )on 02-19-2024 BUN/CRE 11.9 RATIO Normal 10-20 [facility] Comment on above: Order Comment: 1Y Performed By: #### L 300.3900, L100.0100, L501.5425, L500.2500 ####[facility] [address] [place], [address] CA,Total 9.2 mg/dL Normal 8.5-10.1 [facility] Comment on above: Order Comment: 1Y Performed By: #### L 300.3900, L100.0100, L501.5425, L500.2500 ####[facility] [address] [place], [address] Chloride [Moles/Vol] 104 mmol/L Normal 98-107 [facility] Comment on above: Order Comment: 1Y Performed By: #### L 300.3900, L100.0100, L501.5425, L500.2500 ####[facility] [address] [place], [address] CO2 [Moles/Vol] 28.0 mmol/L Normal 21.0-32.0 [facility] Comment on above: Order Comment: 1Y Performed By: #### L 300.3900, L100.0100, L501.5425, L500.2500 ####[facility] [address] [place], [address] Creatinine [Mass/Vol] 1.60 mg/dL High 0.55-1.02 [facility] Comment on above: Order Comment: 1Y Result Comment: The validity of the calculated GFR GFRAA in patients over 70 years has not been determined. Clinical correlation is essential. Performed By: #### L 300.3900, L100.0100, L501.5425, L500.2500 ####[facility] [address] [place], [address] ECRCL 31.34 ml/min Normal [facility] Comment on above: Order Comment: 1Y Performed By: #### L 300.3900, L100.0100, L501.5425, L500.2500 ####[facility] [address] [place], [address] EST GFR - AA 41 mL/min Low >60 [facility] Comment on above: Order Comment: 1Y Result Comment: Afri can [place] GFR Calc Performed By: #### L 300.3900, L100.0100, L501.5425, L500.2500 ####[facility] [address] [place], [address] GAP 7 Normal 5-15 [facility] Comment on above: Order Comment: 1Y Performed By: #### L 300.3900, L100.0100, L501.5425, L500.2500 ####[facility] [address] [place], [address] GFR/1.73 sq M.predicted among non-blacks MDRD (S/P/Bld) [Vol rate/Area] 34 mL/min/{1.73_m2} Low >60 [facility] Comment on above: Order Comment: 1Y Result Comment: Non- GFR Calc Performed By: #### L 300.3900, L100.0100, L501.5425, L500.2500 ####[facility] [address] [place], [address] Glucose [Mass/Vol] 203 mg/dL High 74-106 [facility] Comment on above: Order Comment: 1Y Result Comment: Gluc ose result greater than or equal to 200 mg/dL suggests DIABETES MELLITUS per A.D.A. criteria. Performed By: #### L 300.3900, L100.0100, L501.5425, L500.2500 ####[facility] [address] [place], [address] Potassium [Moles/Vol] 3.8 mmol/L Normal 3.5-5.1 [facility] Comment on above: Order Comment: 1Y Performed By: #### L 300.3900, L100.0100, L501.5425, L500.2500 ####[facility] [address] [place], [address] Sodium [Moles/Vol] 139 mmol/L Normal 136-145 [facility] Comment on above: Order Comment: 1Y Performed By: #### L 300.3900, L100.0100, L501.5425, L500.2500 ####[facility] [address] [place], [address] Urea nitrogen [Mass/Vol] 19 mg/dL High 7-18 [facility] Comment on above: Order Comment: 1Y Performed By: #### L 300.3900, L100.0100, L501.5425, L500.2500 ####[facility] [address] [place], [address] Bedside Glucoseon 02-19-2024 FINGERSTICK GLU 309 mg/dL High 74-106 [facility] Comment on above: Result Comment: GENARO DANG OF PATIENT CARE PER NURSING PROTOCOL Performed By: #### L 501.080 #### [facility] [address] [place], [address] CBC W/Diff, Automatedon Absolute Lymph 1.79 X10 3/uL Normal 0.83-4.51 [facility] Comment on above: Performed By: #### L 300.3900, L100.0100, L501.5425, L500.2500 ####[facility] [address] [place], [address] Absolute Neut 7.8 X10 3/uL High 2.0-7.7 [facility] Comment on above: Performed By: #### L 300.3900, L100.0100, L501.5425, L500.2500 ####[facility] [address] [place], [address] Basophils/100 WBC (Bld) 0.6 % Normal 0-1 [facility] Comment on above: Performed By: #### L 300.3900, L100.0100, L501.5425, L500.2500 ####[facility] [address] [place], [address] Eosinophils/100 WBC (Bld) 7.8 % High 0-5 [facility] Comment on above: Performed By: #### L 300.3900, L100.0100, L501.5425, L500.2500 ####[facility] [address] [place], [address] Erythrocyte distribution width (RBC) [Ratio] 15.4 % High 11.6-14.6 [facility] Comment on above: Performed By: #### L 300.3900, L100.0100, L501.5425, L500.2500 ####[facility] [address] [place], [address] Hematocrit (Bld) [Volume fraction] 44.1 % Normal 37-47 [facility] Comment on above: Performed By: #### L 300.3900, L100.0100, L501.5425, L500.2500 ####[facility] [address] [place], [address] Hemoglobin (Bld) [Mass/Vol] 14.8 g/dL Normal 12.0-15.0 [facility] Comment on above: Performed By: #### L 300.3900, L100.0100, L501.5425, L500.2500 ####[facility] [address] [place], [address] IG% 0.400 Normal 0.0-0.9 [facility] Comment on above: Result Comment: IG% - Immature Granulocytes (promyelocytes, myelocytes and metamyelocytes) > 1% indicates that a LEFT SHIFT is Present. Performed By: #### L 300.3900, L100.0100, L501.5425, L500.2500 ####[facility] [address] [place], [address] Lymphocytes/100 WBC (Bld) 15.8 % Low 19-41 [facility] Comment on above: Performed By: #### L 300.3900, L100.0100, L501.5425, L500.2500 ####[facility] [address] [place], [address] MCH (RBC) [Entitic mass] 30.6 pg Normal 27.0-32.0 [facility] Comment on above: Performed By: #### L 300.3900, L100.0100, L501.5425, L500.2500 ####[facility] [address] [place], [address] MCHC (RBC) [Mass/Vol] 33.6 g/dL Normal 32-36 [facility] Comment on above: Performed By: #### L 300.3900, L100.0100, L501.5425, L500.2500 ####[facility] [address] [place], [address] MCV (RBC) [Entitic vol] 91.3 fL Normal 81-99 [facility] Comment on above: Performed By: #### L 300.3900, L100.0100, L501.5425, L500.2500 ####[facility] [address] [place], [address] Monocytes/100 WBC (Bld) 6.8 % Normal 0-10 [facility] Comment on above: Performed By: #### L 300.3900, L100.0100, L501.5425, L500.2500 ####[facility] [address] [place], [address] Neutrophils/100 WBC (Bld) 68.6 % Normal 47-70 [facility] Comment on above: Performed By: #### L 300.3900, L100.0100, L501.5425, L500.2500 ####[facility] [address] [place], [address] Nucleated RBC (Bld) [#/Vol] 0 10*3/uL Normal 0-5 [facility] Comment on above: Performed By: #### L 300.3900, L100.0100, L501.5425, L500.2500 ####[facility] [address] [place], [address] Platelet mean volume (Bld) [Entitic vol] 11.0 fL Normal 6.2-12.0 [facility] Comment on above: Performed By: #### L 300.3900, L100.0100, L501.5425, L500.2500 ####[facility] [address] [place], [address] Platelets (Bld) [#/Vol] 276 10*3/uL Normal 150-450 [facility] Comment on above: Performed By: #### L 300.3900, L100.0100, L501.5425, L500.2500 ####[facility] [address] [place], [address] RBC (Bld) [#/Vol] 4.83 10*6/uL Normal 4.2-5.4 [facility] Comment on above: Performed By: #### L 300.3900, L100.0100, L501.5425, L500.2500 ####[facility] [address] [place], [address] RDW SD 51.3 fl High 35.1-43.9 [facility] Comment on above: Performed By: #### L 300.3900, L100.0100, L501.5425, L500.2500 ####[facility] [address] [place], [address] WBC (Bld) [#/Vol] 11.3 10*3/uL High 4.4-11.0 [facility] Comment on above: Performed By: #### L 300.3900, L100.0100, L501.5425, L500.2500 ####[facility] [address] [place], [address] CTA Chest W/WO Contraston CTA Chest W/WO Contrast [facility] Services [address] [place] [address] CTA Chest W/WO Contrast MR#: [id number] Acct: [id number] Name: CHRISTY FRANCIS Rep #: [id number] : 1950 F 74 From: Stoney Gatica MD PCP: Dr. Marielos Perla DO Status: ADM BRIAN Study: CTA Chest W/WO Contrast Date of Exam: 02/19/24 Exam# [id number] Ordering Dr: Grant Castelan DO [id number] STUDY: CTA CHEST REASON FOR EXAM: Female, [...] 22:28 EDT Reading Location ID and State: [facility] / [place] Tel , Service support , CC: Dr. Grant Castelan DO; Dr. Marielos Perla DO Manager Play: Signed Normal [facility] Chest 1 View (Portable)on Chest 1 View (Portable) [facility] Services [address] [place], [place] [address] Chest 1 View (Portable) MR#: [id number] Acct: [id number] Name: CHRISTY FRANCIS Rep #: [id number] : 1950 F 74 From: Cirilo Ybarra MD PCP: Dr. Marielos Perla DO Status: PRE ER Study: Chest 1 View (Portable) Date of Exam: 02/19/24 Exam# [id number] Ordering Dr: Moris Watson MD [id number] EXAM: XR CHEST, 1 VIEW CLINICAL INDICATION: [...] 15:14 EDT Reading Location ID and State: [facility] / [place] Tel , Service support , CC: Dr. Moris Watson MD; Dr. Marielos Perla DO Manager Play: Signed [facility] D-Dimer Quantitative (DVT/PE )on 02-19-2024 D-DIMER QUANT 1.08 FEU/ug/m Invalid Interpretation Code 0.27-0.49 [facility] Comment on above: Result Comment: D-Di nubia ELEVATED (>0.49): Additional studies and clinical assessments are indicated to conclude diagnosis of: Deep Vein Thrombosis (DVT) or Pulmonary Embolism (PE) CRITICAL VALUE CALLED TO PILY 02/19/24 1809 Michelle Tovar. RESULTS READ BACK BY SAME. Performed By: #### L [id number] ####[facility] [address] [place], [address] Emergency Department Summary on 02-19-2024 Emergency Department Summary [facility] Medical Records Department [address] [place] [address] Emergency Department Summary 02/19/24 MR#: [id number] Acct: [id number] Name: CHRISTY FRANCIS Rep #: [id number] : 1950 74 From: Moris Watson MD [...] Mechanical loosening of prosthetic knee Atherosclerosis of [place] coronary artery of [place] heart without angina pectoris PAD (peripheral artery [...] and chest (more content not included)... [facility] H AND P Exam - Hospitaliston 02-19-2024 H&P Exam - Hospitalist [facility] Medical Records Department [address] [place] [address] H P Exam - Hospitalist 02/19/24 1732 MR#: [id number] Acct: [id number] Name: CHRISTY FRANCIS Rep #: [id number] : 1950 74 From: Grant Castelan DO PCP: Dr. Marielos Perla DO Status:ADM BRIAN Location: [place] [address] HPI - General General Date of Service: [...] today. Symptoms nahed when she stops. Patient's dkeummbp-om-ybt is in the room and states the [...] Mechanical loosening of prosthetic knee Atherosclerosis of [place] coronary artery of [place] heart without angina pectoris PAD (peripheral artery [...] Pulse O (more content not included)... [facility] L501.4020on 02-19-2024 TROPONIN-I HS 19 pg/mL Normal 3.0-54.0 [facility] Comment on above: Order Comment: Comme nts: SPECIMEN #3'TROP' Serial specimen #1, #2 or #3: 3 Result Comment: Plea se Note: New Test Units and Gender Specific Reference Ranges. For more information see Policy Stat Procedure Sells High Sensitivity Troponin (TNIH) and attachments. Performed By: #### L 501.4020 ####[facility] [address] [place], [address] TROPONIN-I HS 20 pg/mL Normal 3.0-54.0 [facility] Comment on above: Result Comment: Plea se Note: New Test Units and Gender Specific Reference Ranges. For more information see Policy Stat Procedure Sells High Sensitivity Troponin (TNIH) and attachments. Performed By: #### L 501.4020 ####[facility] [address] [place], [address] L501.5425on 02-19-2024 TROPONIN-I HS 19 pg/mL Normal 3.0-54.0 [facility] Comment on above: Order Comment: 1Y Result Comment: Plea se Note: New Test Units and Gender Specific Reference Ranges. For more information see Policy Stat Procedure Sells High Sensitivity Troponin (TNIH) and attachments. Performed By: #### L 300.3900, L100.0100, L501.5425, L500.2500 ####[facility] [address] [facility] [address] Prothrombin Time w/INRon INR Coag (PPP) [Relative time] 1.1 {INR} Normal [facility] Comment on above: Performed By: #### L 300.3900, L100.0100, L501.5425, L500.2500 ####[facility] [address] [place], [address] PT Coag (PPP) [Time] 14.0 s Normal 11.7-14.9 [facility] Comment on above: Performed By: #### L 300.3900, L100.0100, L501.5425, L500.2500 ####[facility] [address] [place], [address] CBC W/Diff, Automatedon 10-1 0-2024 Absolute Lymph 1.72 X10 3/uL Normal 0.83-4.51 [facility] Comment on above: Performed By: #### L 501.080 #### [facility] [address] [place], [address] Absolute Neut 5.0 X10 3/uL Normal 2.0-7.7 [facility] Comment on above: Performed By: #### L 501.080 #### [facility] [address] [place], [address] Basophils/100 WBC (Bld) 0.6 % Normal 0-1 [facility] Comment on above: Performed By: #### L 501.080 #### [facility] [address] [place], [address] Eosinophils/100 WBC (Bld) 12.8 % High 0-5 [facility] Comment on above: Performed By: #### L 501.080 #### [facility] [address] [place], [address] Erythrocyte distribution width (RBC) [Ratio] 15.8 % High 11.6-14.6 [facility] Comment on above: Performed By: #### L 501.080 #### [facility] [address] [place], [address] Hematocrit (Bld) [Volume fraction] 43.8 % Normal 37-47 [facility] Comment on above: Performed By: #### L 501.080 #### [facility] [address] [place], [address] Hemoglobin (Bld) [Mass/Vol] 13.8 g/dL Normal 12.0-15.0 [facility] Comment on above: Performed By: #### L 501.080 #### [facility] [address] [place], [address] IG% 0.500 Normal 0.0-0.9 [facility] Comment on above: Result Comment: IG% - Immature Granulocytes (promyelocytes, myelocytes and metamyelocytes) > 1% indicates that a LEFT SHIFT is Present. Performed By: #### L 501.080 #### [facility] [address] [place], [address] Lymphocytes/100 WBC (Bld) 20.3 % Normal 19-41 [facility] Comment on above: Performed By: #### L 501.080 #### [facility] [address] [place], [address] MCH (RBC) [Entitic mass] 29.7 pg Normal 27.0-32.0 [facility] Comment on above: Performed By: #### L 501.080 #### [facility] [address] [place], [address] MCHC (RBC) [Mass/Vol] 31.5 g/dL Low 32-36 [facility] Comment on above: Performed By: #### L 501.080 #### [facility] [address] [place], [address] MCV (RBC) [Entitic vol] 94.4 fL Normal 81-99 [facility] Comment on above: Performed By: #### L 501.080 #### [facility] [address] [place], [address] Monocytes/100 WBC (Bld) 7.1 % Normal 0-10 [facility] Comment on above: Performed By: #### L 501.080 #### [facility] [address] [place], [address] Neutrophils/100 WBC (Bld) 58.7 % Normal 47-70 [facility] Comment on above: Performed By: #### L 501.080 #### [facility] [address] [place], [address] Nucleated RBC (Bld) [#/Vol] 0 10*3/uL Normal 0-5 [facility] Comment on above: Performed By: #### L 501.080 #### [facility] [address] [place], [address] Platelet mean volume (Bld) [Entitic vol] 11.1 fL Normal 6.2-12.0 [facility] Comment on above: Performed By: #### L 501.080 #### [facility] [address] [place], [address] Platelets (Bld) [#/Vol] 296 10*3/uL Normal 150-450 [facility] Comment on above: Performed By: #### L 501.080 #### [facility] [address] [place], [address] RBC (Bld) [#/Vol] 4.64 10*6/uL Normal 4.2-5.4 [facility] Comment on above: Performed By: #### L 501.080 #### [facility] [address] [place], [address] RDW SD 54.3 fl High 35.1-43.9 [facility] Comment on above: Performed By: #### L 501.080 #### [facility] [address] [place], [address] WBC (Bld) [#/Vol] 8.5 10*3/uL Normal 4.4-11.0 [facility] Comment on above: Performed By: #### L 501.080 #### [facility] [address] [place], [address] Comprehensive Metabolic Prof ilon 01-27-2024 Albumin [Mass/Vol] 3.2 g/dL Normal 3.2-5.0 [facility] Comment on above: Performed By: #### L 501.080 #### [facility] [address] [place], [address] Albumin/Globulin [Mass ratio] 0.8 {ratio} Low 0.9-2.4 [facility] Comment on above: Performed By: #### L 501.080 #### [facility] [address] [place], [address] ALK P 84 U/L Normal 45-117 [facility] Comment on above: Performed By: #### L 501.080 #### [facility] [address] [place], [address] ALT [Catalytic activity/Vol] 18 U/L Normal 13-56 [facility] Comment on above: Performed By: #### L 501.080 #### [facility] [address] [place], [address] AST [Catalytic activity/Vol] 20 U/L Normal 15-37 [facility] Comment on above: Performed By: #### L 501.080 #### [facility] [address] [place], [address] Bilirubin [Mass/Vol] 0.30 mg/dL Normal 0.20-1.00 [facility] Comment on above: Result Comment: For patients on eltrombopag therapy, use of Dimension Sells TBIL is not recommended. Performed By: #### L 501.080 #### [facility] [address] [place], [address] BUN/CRE 23.6 RATIO High 10-20 [facility] Comment on above: Performed By: #### L 501.080 #### [facility] [address] [place], [address] CA,Total 9.3 mg/dL Normal 8.5-10.1 [facility] Comment on above: Performed By: #### L 501.080 #### [facility] [address] [place], [address] Chloride [Moles/Vol] 106 mmol/L Normal 98-107 [facility] Comment on above: Performed By: #### L 501.080 #### [facility] [address] [place], [address] CO2 [Moles/Vol] 27.0 mmol/L Normal 21.0-32.0 [facility] Comment on above: Performed By: #### L 501.080 #### [facility] [address] [place], [address] Creatinine [Mass/Vol] 1.40 mg/dL High 0.55-1.02 [facility] Comment on above: Result Comment: The validity of the calculated GFR GFRAA in patients over 70 years has not been determined. Clinical correlation is essential. Performed By: #### L 501.080 #### [facility] [address] [place], [address] EST GFR - AA 47 mL/min Low >60 [facility] Comment on above: Result Comment: Afri can [place] GFR Calc Performed By: #### L 501.080 #### [facility] [address] [place], [address] GAP 6 Normal 5-15 [facility] Comment on above: Performed By: #### L 501.080 #### [facility] [address] [place], [address] GFR/1.73 sq M.predicted among non-blacks MDRD (S/P/Bld) [Vol rate/Area] 39 mL/min/{1.73_m2} Low >60 [facility] Comment on above: Result Comment: Non- GFR Calc Performed By: #### L 501.080 #### [facility] [address] [place], [address] Globulin (S) [Mass/Vol] 4.1 g/dL Normal 2.2-4.2 [facility] Comment on above: Performed By: #### L 501.080 #### [facility] [address] [place], [address] Glucose [Mass/Vol] 168 mg/dL High 74-106 [facility] Comment on above: Result Comment: Fast ing Glucose result greater than or equal to 126 mg/dL suggests DIABETES MELLITUS per A.D.A. criteria. Performed By: #### L 501.080 #### [facility] [address] [place], [address] Potassium [Moles/Vol] 3.4 mmol/L Low 3.5-5.1 [facility] Comment on above: Performed By: #### L 501.080 #### [facility] [address] [place], [address] Sodium [Moles/Vol] 139 mmol/L Normal 136-145 [facility] Comment on above: Performed By: #### L 501.080 #### [facility] [address] [place], [address] T PROT 7.3 g/dL Normal 6.4-8.2 [facility] Comment on above: Performed By: #### L 501.080 #### [facility] [address] [place], [address] Urea nitrogen [Mass/Vol] 33 mg/dL High 7-18 [facility] Comment on above: Performed By: #### L 501.080 #### [facility] [address] [place], [address] Lipid Profileon 01-27-2024 Cholesterol [Mass/Vol] 135 mg/dL Normal 200 [facility] Comment on above: Result Comment: <200 mg/dL Desirable 200-240 mg/dL Borderline >240 mg/dL High Risk Performed By: #### L 501.080 #### [facility] [address] [place], [address] Cholesterol in HDL [Mass/Vol] 48 mg/dL Normal [facility] Comment on above: Result Comment: The drugs N-Acetylcysteine and Metamizole may falsely depress this assay. Reference Range HDL <40 mg/dL Low HDL Cholesterol HDL >or= 60 mg/dL High HDL Cholesterol Performed By: #### L 501.080 #### [facility] [address] [place], [address] Cholesterol in LDL [Mass/Vol] 51 mg/dL Normal 0-130 [facility] Comment on above: Performed By: #### L 501.080 #### [facility] [address] [place], [address] Cholesterol in VLDL [Mass/Vol] 36 mg/dL Normal 5-40 [facility] Comment on above: Performed By: #### L 501.080 #### [facility] [address] [place], [address] Triglyceride [Mass/Vol] 180 mg/dL Normal [facility] Comment on above: Result Comment: The drugs N-Acetylcysteine and Metamizole may falsely depress this assay. Serum Triglycerides Reference Interval Normal <150 mg/dL Borderline high 150 - 199 mg/dL High 200 - 499 mg/dL Very High > or = 500 mg/dL Performed By: #### L 501.080 #### [facility] [address] [place], [address] Microalb:Creat Ratio,Random URon 01-27-2024 Creatinine [Mass/Vol] 104.00 mg/dL Normal NO RAN GE EST. [facility] Comment on above: Performed By: #### L 501.080 #### [facility] [address] [place], [address] MALB:CRE 901.9 mg/g CRE High <30 mg/g CRE [facility] Comment on above: Performed By: #### L 501.080 #### [facility] [address] [place], [place], [address] MICROALBUMIN,UR 938.0 mg/L Normal NO RANGE EST. [facility] Comment on above: Performed By: #### L 501.080 #### [facility] [address] [place], [place], [address] Basophil percentageOrdered B y: Marielos Perla on 06-14-2023 Creatinine [Mass/Vol] 1.4 mg/dL 0.55-1.02 [facility] - Chemistry and C hemistry - challengeOrdered By: Marielos Perla on 06-14-2023 GFR/1.73 sq M.predicted among non-blacks MDRD (S/P/Bld) [Vol rate/Area] 40.0000 mL/min/{1.73_m2} >60 [facility] Absolute lymphocyte countOrd ered By: Marielos Perla on 11-23-2022 Lymphocytes Auto (Unsp spec) [#/Vol] 2.13 10*3/uL 0.83-4.51 [facility] Basophil percentageOrdered B y: Marielos Perla on 11-23-2022 Basophils/100 WBC (Bld) 0.9 % 0-1 [facility] Bilirubin [Mass/Vol] 0.40 mg/dL 0.20-1.00 [facility] Comment on above: For patients on eltr ombopag therapy, use of Dimension Sells TBIL is not recommended. Chloride [Moles/Vol] 106 mmol/L 98-107 [facility] Cholesterol [Mass/Vol] 165 mg/dL <200 [facility] Comment on above: <200 mg/dL Desirable 200-240 mg/dL Borderline >240 mg/dL High Risk Eosinophils/100 WBC (Bld) 7.6 % 0-5 [facility] Glucose [Mass/Vol] 183 mg/dL 74-106 [facility] Comment on above: Fasting Glucose resu lt greater than or equal to 126 mg/dL suggests DIABETES MELLITUS per A.D.A. criteria. Neutrophils (Bld) [#/Vol] 4.6 10*3/uL 2.0-7.7 [facility] Neutrophils/100 WBC (Bld) 55.9 % 47-70 [facility] Potassium [Moles/Vol] 4.3 mmol/L 3.5-5.1 [facility] Protein [Mass/Vol] 7.5 g/dL 6.4-8.2 [facility] Sodium [Moles/Vol] 138 mmol/L 136-145 [facility] Triglyceride [Mass/Vol] 241 mg/dL <199 [facility] Comment on above: The drugs N-Acetylcy steine and Metamizole may falsely depress this assay.Serum Triglycerides Reference Interval Normal <150 mg/dL Borderline high 150 - 199 mg/dL High 200 - 499 mg/dL Very High > or = 500 mg/dL WBC (Bld) [#/Vol] 8.1 10*3/uL 4.4-11.0 [facility] Blood erythrocytes count (nu mber/volume)Ordered By: Marielos Perla on 11-23-2022 RBC (Bld) [#/Vol] 4.97 10*6/uL 4.2-5.4 [facility] Blood hemoglobin measurement (mass/volume)Ordered By: Marielos Perla on 11-23-2022 Hemoglobin (Bld) [Mass/Vol] 15.5 g/dL 12.0-15.0 [facility] Blood lymphocytes/100 leukoc ytesOrdered By: Marielos Perla on 11-23-2022 Lymphocytes/100 WBC (Bld) 26.2 % 19-41 [facility] Blood monocytes/100 leukocyt esOrdered By: Marielos Perla on 11-23-2022 Monocytes/100 WBC (Bld) 9.0 % 0-10 [facility] Blood platelet mean volumeOr dered By: Marielos Perla on 11-23-2022 Platelet mean volume (Bld) [Entitic vol] 11.1 fL 6.2-12.0 [facility] Determination of erythrocyte mean corpuscular volume (MCV)Ordered By: Marielos Perla on 11-23-2022 MCV (RBC) [Entitic vol] 92.6 fL 81-99 [facility] Hematocrit Auto (Bld) [Volum e fraction]Ordered By: Marielos Perla on 11-23-2022 Hematocrit (Bld) [Volume fraction] 46.0 % 37-47 [facility] - Chemistry and C hemistry - challengeOrdered By: Marielos Perla on 11-23-2022 ALP [Catalytic activity/Vol] 65 U/L 45-117 [facility] ALT [Catalytic activity/Vol] 29 U/L 13-56 [facility] CO2 [Moles/Vol] 27.0 mmol/L 21.0-32.0 [facility] Globulin (S) [Mass/Vol] 3.9 g/dL 2.2-4.2 [facility] Urea nitrogen/Creatinine [Mass ratio] 18.0 mg/mg 10-20 [facility] - Hematology and Cell countsOrdered By: Marielos Perla on 11-23-2022 Erythrocyte distribution width (RBC) [Entitic vol] 45.6 fL 35.1-43.9 [facility] Erythrocyte distribution width (RBC) [Ratio] 13.5 % 11.6-14.6 [facility] Immature granulocytes/100 WBC (Bld) 0.400 % 0.0-0.9 [facility] Comment on above: IG% - Immature Granu locytes (promyelocytes, myelocytes and metamyelocytes) > 1% indicates that a LEFT SHIFT is Present. MCH (RBC) [Entitic mass] 31.2 pg 27.0-32.0 [facility] Nucleated RBC/100 WBC (Bld) [Ratio] 0 % 0-5 [facility] MCHC Auto (RBC) [Mass/Vol]Or dered By: Marielos Perla on 11-23-2022 MCHC (RBC) [Mass/Vol] 33.7 g/dL 32-36 [facility] No Panel InformationOrdered By: Marielos Perla on 11-23-2022 Estimated GFR (MDRD) Amer 44 mL/min >60 [facility] Comment on above: GFR Calc Estimated GFR (MDRD) Non-Af Amer 36 mL/min >60 [facility] Comment on above: Non- GFR Calc Urine Microalbumin/Creatinin e Ratio 1038.3 mg/g CRE <30 [facility] Platelets bldOrdered By: Mariposa Perla on 11-23-2022 Platelets (Bld) [#/Vol] 228 10*3/uL 150-450 [facility] Serum or plasma albumin shannon urement (mass/volume)Ordered By: Marielos Perla on 11-23-2022 Albumin [Mass/Vol] 3.6 g/dL 3.2-5.0 [facility] Serum or plasma albumin/glob ulin mass ratioOrdered By: Marielos Perla on 11-23-2022 Albumin/Globulin [Mass ratio] 0.9 {ratio} 0.9-2.4 [facility] Serum or plasma calcium shannon urement (mass/volume)Ordered By: Marielos Perla on 11-23-2022 Calcium [Mass/Vol] 9.1 mg/dL 8.5-10.1 [facility] Serum or plasma cholesterol in HDL measurement (mass/volume)Ordered By: Marielos Perla on 11-23-2022 Cholesterol in HDL [Mass/Vol] 51 mg/dL >40 [facility] Comment on above: The drugs N-Acetylcy steine and Metamizole may falsely depress this assay. Reference Range HDL <40 mg/dL Low HDL Cholesterol HDL >or= 60 mg/dL High HDL Cholesterol Serum or plasma cholesterol in VLDL measurement (mass/volume)Ordered By: Marielos Perla on 11-23-2022 Cholesterol in VLDL [Mass/Vol] 48 mg/dL 5-40 [facility] Serum or plasma creatinine m easurement (mass/volume)Ordered By: Marielos Perla on 11-23-2022 Creatinine [Mass/Vol] 1.50 mg/dL 0.55-1.02 [facility] Comment on above: The validity of the calculated GFR & GFRAA in patients over 70 years has not been determined. Clinical correlation is essential. Serum or plasma low density lipoprotein (LDL) cholesterol measurement (mass/volume)Ordered By: Marielos Perla on 11-23-2022 Cholesterol in LDL [Mass/Vol] 66 mg/dL 0-130 [facility] Serum or plasma urea nitroge n measurement (mass/volume)Ordered By: Marielos Perla on 11-23-2022 Urea nitrogen [Mass/Vol] 27 mg/dL 7-18 [facility] Thin prep Papanicolaou smear with manual screeningOrdered By: Marielos Perla on 11-23-2022 Thin prep Papanicolaou smear with manual screening 24 U/L 15-37 [facility] Thin prep Papanicolaou smear with manual screening 5 5-15 [facility] Thin prep Papanicolaou smear with manual screening 325.0 mg/L NO RANGE EST. [facility] Urine creatinine measurement (mass/volume)Ordered By: Marielos Perla on 11-23-2022 Creatinine (U) [Mass/Vol] 31.30 mg/dL NO RANGE EST. [facility] Basophil percentageOrdered B y: Charlie Johnson on 08-14-2022 Bilirubin [Mass/Vol] 0.30 mg/dL 0.20-1.00 [facility] Comment on above: For patients on eltr ombopag therapy, use of Dimension Sells TBIL is not recommended. Chloride [Moles/Vol] 109 mmol/L 98-107 [facility] Cholesterol [Mass/Vol] 185 mg/dL <200 [facility] Comment on above: <200 mg/dL Desirable 200-240 mg/dL Borderline >240 mg/dL High Risk Glucose [Mass/Vol] 70 mg/dL 74-106 [facility] Potassium [Moles/Vol] 4.2 mmol/L 3.5-5.1 [facility] Protein [Mass/Vol] 7.3 g/dL 6.4-8.2 [facility] Sodium [Moles/Vol] 141 mmol/L 136-145 [facility] Triglyceride [Mass/Vol] 360 mg/dL <199 [facility] Comment on above: The drugs N-Acetylcy steine and Metamizole may falsely depress this assay.Serum Triglycerides Reference Interval Normal <150 mg/dL Borderline high 150 - 199 mg/dL High 200 - 499 mg/dL Very High > or = 500 mg/dL WBC (Bld) [#/Vol] 10.0 10*3/uL 4.4-11.0 [facility] Blood erythrocytes count (nu mber/volume)Ordered By: Charlie Johnson on 08-14-2022 RBC (Bld) [#/Vol] 5.23 10*6/uL 4.2-5.4 [facility] Blood hemoglobin measurement (mass/volume)Ordered By: Charlie Johnson on 08-14-2022 Hemoglobin (Bld) [Mass/Vol] 15.9 g/dL 12.0-15.0 [facility] Blood platelet mean volumeOr dered By: Charlie Johnson on 08-14-2022 Platelet mean volume (Bld) [Entitic vol] 10.5 fL 6.2-12.0 [facility] Determination of erythrocyte mean corpuscular volume (MCV)Ordered By: Charlie Johnson on 08-14-2022 MCV (RBC) [Entitic vol] 95.2 fL 81-99 [facility] Direct bilirubinOrdered By: Charlie Johnson on 08-14-2022 Bilirubin.direct [Mass/Vol] 0.08 mg/dL 0.00-0.30 [facility] Hematocrit Auto (Bld) [Volum e fraction]Ordered By: Charlie Johnson on 08-14-2022 Hematocrit (Bld) [Volume fraction] 49.8 % 37-47 [facility] - Chemistry and C hemistry - challengeOrdered By: Charlie Johnson on 08-14-2022 ALP [Catalytic activity/Vol] 68 U/L 45-117 [facility] ALT [Catalytic activity/Vol] 25 U/L 13-56 [facility] CO2 [Moles/Vol] 28.0 mmol/L 21.0-32.0 [facility] Globulin (S) [Mass/Vol] 4.0 g/dL 2.2-4.2 [facility] Natriuretic peptide B (Bld) [Mass/Vol] 336.8 pg/mL 0-100 [facility] Urea nitrogen/Creatinine [Mass ratio] 19.0 mg/mg 10-20 [facility] - Hematology and Cell countsOrdered By: Charlie Johnson on 08-14-2022 Erythrocyte distribution width (RBC) [Entitic vol] 48.3 fL 35.1-43.9 [facility] Erythrocyte distribution width (RBC) [Ratio] 13.8 % 11.6-14.6 [facility] MCH (RBC) [Entitic mass] 30.4 pg 27.0-32.0 [facility] MCHC Auto (RBC) [Mass/Vol]Or dered By: Charlie Johnson on 08-14-2022 MCHC (RBC) [Mass/Vol] 31.9 g/dL 32-36 [facility] [place] No Panel InformationOrdered By: Charlie Johnson on 08-14-2022 Estimated GFR (MDRD) Amer 49 mL/min >60 [facility] Comment on above: GFR Calc Estimated GFR (MDRD) Non-Af Amer 40 mL/min >60 [facility] Comment on above: Non- GFR Calc Platelets bldOrdered By: Liban Johnson on 08-14-2022 Platelets (Bld) [#/Vol] 309 10*3/uL 150-450 [facility] Serum or plasma albumin shannon urement (mass/volume)Ordered By: Charlie Johnson on 08-14-2022 Albumin [Mass/Vol] 3.3 g/dL 3.2-5.0 [facility] Serum or plasma calcium shannon urement (mass/volume)Ordered By: Charlie Johnson on 08-14-2022 Calcium [Mass/Vol] 9.3 mg/dL 8.5-10.1 [facility] Serum or plasma cholesterol in HDL measurement (mass/volume)Ordered By: Charlie Johnson on 08-14-2022 Cholesterol in HDL [Mass/Vol] 48 mg/dL >40 [facility] Comment on above: The drugs N-Acetylcy steine and Metamizole may falsely depress this assay. Reference Range HDL <40 mg/dL Low HDL Cholesterol HDL >or= 60 mg/dL High HDL Cholesterol Serum or plasma cholesterol in VLDL measurement (mass/volume)Ordered By: Charlie Johnson on 08-14-2022 Cholesterol in VLDL [Mass/Vol] 72 mg/dL 5-40 [facility] Serum or plasma creatinine m easurement (mass/volume)Ordered By: Charlie Johnson on 08-14-2022 Creatinine [Mass/Vol] 1.37 mg/dL 0.55-1.02 [facility] [place] Comment on above: The validity of the calculated GFR & GFRAA in patients over 70 years has not been determined. Clinical correlation is essential. Serum or plasma low density lipoprotein (LDL) cholesterol measurement (mass/volume)Ordered By: Charlie Johnson on 08-14-2022 Cholesterol in LDL [Mass/Vol] 65 mg/dL 0-130 [facility] Serum or plasma urea nitroge n measurement (mass/volume)Ordered By: Charlie Johnson on 08-14-2022 Urea nitrogen [Mass/Vol] 26 mg/dL 7-18 [facility] Thin prep Papanicolaou smear with manual screeningOrdered By: Charlie Johnson on 08-14-2022 Thin prep Papanicolaou smear with manual screening 24 U/L 15-37 [facility] Thin prep Papanicolaou smear with manual screening 4 5-15 [facility] Basophil percentageOrdered B y: Charlie Johnson on 02-25-2022 Bilirubin [Mass/Vol] 0.30 mg/dL 0.20-1.00 [facility] [place] Comment on above: For patients on eltr ombopag therapy, use of [employer] TBIL is not recommended. Cholesterol [Mass/Vol] 156 mg/dL <200 [facility] Comment on above: <200 mg/dL Desirable 200-240 mg/dL Borderline >240 mg/dL High Risk Protein [Mass/Vol] 6.7 g/dL 6.4-8.2 [facility] Triglyceride [Mass/Vol] 213 mg/dL <199 [facility] Comment on above: The drugs N-Acetylcy steine and Metamizole may falsely depress this assay.Serum Triglycerides Reference Interval Normal <150 mg/dL Borderline high 150 - 199 mg/dL High 200 - 499 mg/dL Very High > or = 500 mg/dL Direct bilirubinOrdered By: Charlie Johnson on 02-25-2022 Bilirubin.direct [Mass/Vol] 0.11 mg/dL 0.00-0.30 [facility] Laboratory - Chemistry and C hemistry - challengeOrdered By: Charlie Johnson on 02-25-2022 ALP [Catalytic activity/Vol] 57 U/L 45-117 [facility] ALT [Catalytic activity/Vol] 26 U/L 13-56 [facility] Globulin (S) [Mass/Vol] 3.5 g/dL 2.2-4.2 [facility] Serum or plasma albumin shannon urement (mass/volume)Ordered By: Charlie Johnson on 02-25-2022 Albumin [Mass/Vol] 3.2 g/dL 3.2-5.0 [facility] Serum or plasma cholesterol in HDL measurement (mass/volume)Ordered By: Charlie Johnson on 02-25-2022 Cholesterol in HDL [Mass/Vol] 50 mg/dL >40 [facility] Comment on above: The drugs N-Acetylcy steine and Metamizole may falsely depress this assay. Reference Range HDL <40 mg/dL Low HDL Cholesterol HDL >or= 60 mg/dL High HDL Cholesterol Serum or plasma cholesterol in VLDL measurement (mass/volume)Ordered By: Charlie Johnson on 02-25-2022 Cholesterol in VLDL [Mass/Vol] 43 mg/dL 5-40 [facility] Serum or plasma low density lipoprotein (LDL) cholesterol measurement (mass/volume)Ordered By: Charlie Johnson on 02-25-2022 Cholesterol in LDL [Mass/Vol] 63 mg/dL 0-130 [facility] Thin prep Papanicolaou smear with manual screeningOrdered By: Charlie Johnson on 02-25-2022 Thin prep Papanicolaou smear with manual screening 18 U/L 15-37 [facility] Basic Metabolic Panelon 02-17 Calcium [Mass/Vol] 9.2 mg/dL Normal 8.4-10.4 [facility] Comment on above: Performed By: #### B GLU #### [facility] [address] [place], [place] Glucose [Mass/Vol] 170 mg/dL High 70-100 [facility] Comment on above: Performed By: #### B GLU #### [facility] [address] [place], [place] Anion gap [Moles/Vol] 11 Normal [facility] Comment on above: Performed By: #### B GLU #### [facility] [address] [place], [place] CO2 [Moles/Vol] 25 mmol/L Normal 22-30 [facility] Comment on above: Performed By: #### B GLU #### [facility] [address] [place], [place] Creatinine [Mass/Vol] 1.21 mg/dL Normal 0.52-1.25 [facility] Comment on above: Performed By: #### B GLU #### [address] [place], [place] GFR/1.73 sq M predicted among blacks MDRD (S/P/Bld) [Vol rate/Area] 53.5 mL/min/{1.73_m2} Normal >60 [facility] Comment on above: Performed By: #### B GLU #### [facility] [address] [place], [place] GFR/1.73 sq M predicted among non-blacks MDRD (S/P/Bld) [Vol rate/Area] 44.1 mL/min/{1.73_m2} Normal >60 [facility] Comment on above: Result Comment: Sour ce- MDRD equation with creatinine calibration to IDMS(NKDEP) eGFR not recommended for drug dose adjustment Performed By: #### B GLU #### [address] [place], [place] Urea nitrogen [Mass/Vol] 28 mg/dL High 7-20 [facility] Comment on above: Performed By: #### B GLU #### [address] [place], [place] Chloride [Moles/Vol] 102 mmol/L Normal 98-107 [facility] Comment on above: Performed By: #### B GLU #### [address] [place], [place] Potassium [Moles/Vol] 4.6 mmol/L Normal 3.5-5.1 [facility] Comment on above: Performed By: #### B GLU #### [address] [place], [place] Sodium [Moles/Vol] 138 mmol/L Normal 135-145 [facility] Comment on above: Performed By: #### B GLU #### [address] [place], [place] Anion gap [Moles/Vol] 11 mmol/L [facility], [place] Calcium [Mass/Vol] 9.2 mg/dL 8.4 - 10. 4 mg/dL [place], [place] Chloride [Moles/Vol] 102 mmol/L 98 - 10 7 mmol/L [place] CO2 [Moles/Vol] 25 mmol/L 22 - 30 mmol/L [place] Creatinine [Mass/Vol] 1.21 mg/dL 0.52 - 1.25 mg/dL [place] EGFR IF NonAfrican [place] 44.1 mL/min >60 [place] Comment on above: Source- MDRD equatio n with creatinine calibration to IDMS(NKDEP) eGFR not recommended for drug dose adjustment GFR/1.73 sq M predicted among blacks MDRD (S/P/Bld) [Vol rate/Area] 53.5 mL/min/{1.73_m2} >60 [place] Glucose [Mass/Vol] 170 mg/dL High 70 - 100 mg/dL [place] Interpretation and review of laboratory results Abnormal [place] Potassium [Moles/Vol] 4.6 mmol/L 3.5 - 5.1 mmol/L [place] Sodium [Moles/Vol] 138 mmol/L 135 - 145 mmol/L [place] Urea nitrogen [Mass/Vol] 28 mg/dL High 7 - 20 mg/dL [place] Test Performed by [address] [address] [place], [place] CBCon 03-03-2019 Erythrocyte distribution width (RBC) [Ratio] 13.1 % 11.5 - 14.5 % [place] Hematocrit (Bld) [Volume fraction] 32.0 % Low 35 - 47 % [place] Hemoglobin (Bld) [Mass/Vol] 10.6 g/dL Low 11.7 - 16 g/dL [place] Interpretation and review of laboratory results Abnormal [place] MCH (RBC) [Entitic mass] 30.4 pg 26 - 34 pg [place] MCHC (RBC) [Mass/Vol] 33.1 % 32 - 36 % [place], [place] MCV (RBC) [Entitic vol] 91.7 fL 79 - 98 fL [place] Platelet mean volume (Bld) [Entitic vol] 9.4 fL 7.4 - 10.4 fL [place] Platelets (Bld) [#/Vol] 201 10*3/uL 140 - 440 10*3/uL [place] RBC (Bld) [#/Vol] 3.49 10*6/uL Low 3.8 - 5.2 10*6/uL [place] WBC (Bld) [#/Vol] 16.2 10*3/uL High 3.6 - 10.7 10*3/uL [place] Test Performed by [facility], [address] [place] [address] [place], [place] CR Chest Portableon 03-03-20 19 CR Chest Portable Patient Name: CHRISTY FRANCIS Diagnostic Radiology Exam Date/Time 03/03/2019 05:56:23 EST Exam CR Chest Portable Ordering Physician GRANT TAYLOR Accession Number [id number] CPT4 Codes 90396 () Reason For Exam POST OP OPEN [...] Transcribed Date and Time: 03/03/2019 6:46 Normal [facility] Glucose,Bedsideon 03-03-2019 Glucose [Mass/Vol] 220 mg/dL High 70-100 [facility] Comment on above: Result Comment: Test performed by glucose meter. Results may be 10%-15% lower than serum/plasma values. (CLIA ID [id number]) Performed By: #### B GLU #### [address] [place] [address] Glucose [Mass/Vol] 224 mg/dL High 70-100 [facility] Comment on above: Result Comment: Test performed by glucose meter. Results may be 10%-15% lower than serum/plasma values. (CLIA ID [id number]) Performed By: #### B GLU #### [address] [place], [place] Hemogramon 03-03-2019 Erythrocyte distribution width (RBC) [Ratio] 13.1 % Normal 11.5-14.5 [facility] Comment on above: Performed By: #### B GLU #### [address] [place], [place] Hematocrit (Bld) [Volume fraction] 32.0 % Low 35.0-47.0 [facility] Comment on above: Performed By: #### B GLU #### [address] [place], [place] Hemoglobin (Bld) [Mass/Vol] 10.6 g/dL Low 11.7-16.0 [facility] Comment on above: Performed By: #### B GLU #### [address] [place], [place] MCH (RBC) [Entitic mass] 30.4 pg Normal 26.0-34.0 [facility] Comment on above: Performed By: #### B GLU #### [address] [place], [place] MCHC (RBC) [Mass/Vol] 33.1 % Normal 32.0-36.0 [facility] Comment on above: Performed By: #### B GLU #### [address] [place], [place] MCV (RBC) [Entitic vol] 91.7 fL Normal 79.0-98.0 [facility] Comment on above: Performed By: #### B GLU #### [address] Platelet mean volume (Bld) [Entitic vol] 9.4 fL Normal 7.4-10.4 [facility] Comment on above: Performed By: #### B GLU #### [address] Platelets (Bld) [#/Vol] 201 10*3/uL Normal 140-440 [facility] Comment on above: Performed By: #### B GLU #### [facility] [address] [place], [place] RBC (Bld) [#/Vol] 3.49 10*6/uL Low 3.80-5.20 [facility] Comment on above: Performed By: #### B GLU #### [facility] [address] [place], [place] WBC (Bld) [#/Vol] 16.2 10*3/uL High 3.6-10.7 [facility] Comment on above: Performed By: #### B GLU #### [facility] [address] [place], [place] POCT Glucoseon 03-03-2019 Glucose [Mass/Vol] 220 mg/dL High 70 - 100 mg/dL [place] Comment on above: Test performed by gl ucose meter. Results may be 10%-15% lower than serum/plasma values. (CLIA ID [id number]) Interpretation and review of laboratory results [facility]normal [facility] [place] Test Performed by [facility], [address] [place] [address] [place], [place] Glucose [Mass/Vol] 224 mg/dL High 70 - 100 mg/dL [place] Comment on above: Test performed by gl ucose meter. Results may be 10%-15% lower than serum/plasma values. (CLIA ID [id number]) Interpretation and review of laboratory results Abnormal [facility] [place] Test Performed by [facility], [address] [place] [address] [place], [place] XR CHEST PORTABLEon 03-03-20 19 Brian, [facility] Incoming [facility] - 03/03/2019 6:48 AM EST Patient Name: CHRISTY FRANCIS ---Diagnostic Radiology--- Exam Date/Time 03/03/2019 05:56:23 EST Exam CR Chest Portable Ordering Physician GRANT TAYLOR Accession Number [id number] CPT4 Codes 42974 () Reason For Exam POST OP OPEN [...] JEFFREY Transcribed Date and Time: 03/03/2019 6:46 [place], [place] Patient Name: CHRISTY FRANCIS ---Diagnostic Radiology--- Exam Date/Time 03/03/2019 05:56:23 EST Exam CR Chest Portable Ordering Physician GRANT TAYLOR Accession Number [id number] CPT4 Codes 01935 () Reason For Exam POST OP OPEN [...] JEFFREY Transcribed Date and Time: 03/03/2019 6:46 [place], [place] Basic Metabolic Panelon 02-17 Calcium [Mass/Vol] 9.3 mg/dL Normal 8.4-10.4 [facility] Comment on above: Performed By: #### B GLU #### [facility] [address] [place], [place] Anion gap [Moles/Vol] 10 Normal [facility] Comment on above: Performed By: #### B GLU #### [facility] [address] [place], [place] CO2 [Moles/Vol] 22 mmol/L Normal 22-30 [facility] Comment on above: Performed By: #### B GLU #### [address] [place], [place] Creatinine [Mass/Vol] 1.24 mg/dL Normal 0.52-1.25 [facility] Comment on above: Performed By: #### B GLU #### [address] [place], [place] GFR/1.73 sq M predicted among blacks MDRD (S/P/Bld) [Vol rate/Area] 52.0 mL/min/{1.73_m2} Normal >60 [facility] Comment on above: Performed By: #### B GLU #### [address] [place], [place] GFR/1.73 sq M predicted among non-blacks MDRD (S/P/Bld) [Vol rate/Area] 42.9 mL/min/{1.73_m2} Normal >60 [facility] Comment on above: Result Comment: Sour ce- MDRD equation with creatinine calibration to IDMS(NKDEP) eGFR not recommended for drug dose adjustment Performed By: #### B GLU #### [facility] [address] [place], [place] Glucose [Mass/Vol] 253 mg/dL High 70-100 [facility] Comment on above: Performed By: #### B GLU #### [address] [place], [place] Urea nitrogen [Mass/Vol] 32 mg/dL High 7-20 [facility] Comment on above: Performed By: #### B GLU #### [address] [place], [place] Chloride [Moles/Vol] 104 mmol/L Normal 98-107 [facility] Comment on above: Performed By: #### B GLU #### [facility] [address] [place] [address] Potassium [Moles/Vol] 5.0 mmol/L Normal 3.5-5.1 [facility] Comment on above: Performed By: #### B GLU #### [facility] [address] [place] [address] Sodium [Moles/Vol] 135 mmol/L Normal 135-145 [facility] Comment on above: Performed By: #### B GLU #### [facility] [address] [place] [address] Anion gap [Moles/Vol] 10 mmol/L [place] Calcium [Mass/Vol] 9.3 mg/dL 8.4 - 10. 4 mg/dL [place] Chloride [Moles/Vol] 104 mmol/L 98 - 10 7 mmol/L [place] CO2 [Moles/Vol] 22 mmol/L 22 - 30 mmol/L [place] Creatinine [Mass/Vol] 1.24 mg/dL 0.52 - 1.25 mg/dL [place] EGFR IF NonAfrican [place] 42.9 mL/min >60 [place] Comment on above: Source- MDRD equatio n with creatinine calibration to IDMS(NKDEP) eGFR not recommended for drug dose adjustment GFR/1.73 sq M predicted among blacks MDRD (S/P/Bld) [Vol rate/Area] 52.0 mL/min/{1.73_m2} >60 [place] Glucose [Mass/Vol] 253 mg/dL High 70 - 100 mg/dL [place] Interpretation and review of laboratory results Abnormal [place] Potassium [Moles/Vol] 5.0 mmol/L 3.5 - 5.1 mmol/L [place] Sodium [Moles/Vol] 135 mmol/L 135 - 145 mmol/L [place] Urea nitrogen [Mass/Vol] 32 mg/dL High 7 - 20 mg/dL [place] Test Performed by [facility], [address] [place] [address] [place] CBCon 03-02-2019 Erythrocyte distribution width (RBC) [Ratio] 13.2 % 11.5 - 14.5 % [place] Hematocrit (Bld) [Volume fraction] 33.8 % Low 35 - 47 % [place] Hemoglobin (Bld) [Mass/Vol] 11.0 g/dL Low 11.7 - 16 g/dL [place] Interpretation and review of laboratory results Abnormal [place] MCH (RBC) [Entitic mass] 30.3 pg 26 - 34 pg [place] MCHC (RBC) [Mass/Vol] 32.6 % 32 - 36 % [place] MCV (RBC) [Entitic vol] 92.7 fL 79 - 98 fL [place] Platelet mean volume (Bld) [Entitic vol] 10.7 fL High 7.4 - 10.4 fL [place] Platelets (Bld) [#/Vol] 169 10*3/uL 140 - 440 10*3/uL [place] RBC (Bld) [#/Vol] 3.65 10*6/uL Low 3.8 - 5.2 10*6/uL [place] WBC (Bld) [#/Vol] 18.8 10*3/uL High 3.6 - 10.7 10*3/uL [place] Test Performed by [address] [address] [place], [place] CR Chest Portableon 03-02-20 19 CR Chest Portable Patient Name: CHRISTY FRANCIS Diagnostic Radiology Exam Date/Time 03/02/2019 06:07:22 EST Exam CR Chest Portable Ordering Physician GRANT TAYLOR Accession Number [id number] CPT4 Codes 98992 () Reason For Exam POST OP OPEN [...] Transcribed Date and Time: 03/02/2019 6:14 Normal [facility] Echocardiogram transesophage pedro pablo 03-02-2019 Brian, [facility] Incoming Cardiology Results From [facility] - 03/02/2019 8:47 AM EST TRANSESOPHAGEAL ECHOCARDIOGRAM Intraoperative-Pre Pump Only PATIENT: Christy Francis STUDY DATE: 02/27/2019 : 1950 AGE: 69 HT/WT: 154.9 cm (61 80 kg in) (176 lb) GENDER: F BP: 98 / 57 LOCATION: [facility] PATIENT Inpatient [facility] STATUS: *ORDERING PHYSICIAN: * Ronda Carmona *READING PHYSICIAN: * Michi Dewitt, *[employer]OMAT[employer]N GR[employer]ER OPERATOR: Janice Austin MD [facility] INDICATIONS: CABG. CONCLUSIONS SUMMARY: 1. [...] Michi Dewitt MD 03/02/2019 08:46 Prior Signatures: [employer] [facility] [place], [place] TRANSESOPHAGEAL ECHOCARDIOGRAM Intraoperative-Pre Pump Only PATIENT: Christy Francis STUDY DATE: 02/27/2019 : 1950 AGE: 69 HT/WT: 154.9 cm (61 80 kg in) (176 lb) GENDER: F BP: 98 / 57 LOCATION: [facility] PATIENT Inpatient [facility] STATUS: *ORDERING PHYSICIAN: * Ronda Carmona *READING PHYSICIAN: * Michi Dewitt, *AUTOMATIC CORN GRINDER OPERATOR: * Janice Trivedi MD [facility] INDICATIONS: CABG. CONCLUSIONS SUMMARY: 1. [...] Michi Dewitt MD 03/02/2019 08:46 Prior Signatures: [facility], [place] Glucose,Bedsideon 03-02-2019 Glucose [Mass/Vol] 168 mg/dL High 70-100 [facility] [employer] [facility] Comment on above: Result Comment: Test performed by glucose meter. Results may be 10%-15% lower than serum/plasma values. (CLIA ID [id number]) Performed By: #### B GLU #### [address] [place], [place] Glucose [Mass/Vol] 249 mg/dL High 70-100 [facility] Comment on above: Result Comment: Test performed by glucose meter. Results may be 10%-15% lower than serum/plasma values. (CLIA ID [id number]) Performed By: #### B GLU #### [address] [place], [place] Glucose [Mass/Vol] 324 mg/dL High 70-100 [facility] Comment on above: Result Comment: Test performed by glucose meter. Results may be 10%-15% lower than serum/plasma values. (CLIA ID [id number]) Performed By: #### B GLU #### [address] [place], [place] Glucose [Mass/Vol] 347 mg/dL High 70-100 [facility] Comment on above: Result Comment: Test performed by glucose meter. Results may be 10%-15% lower than serum/plasma values. (CLIA ID [id number]) Performed By: #### B GLU #### [address] [place], [place] Hemogramon 03-02-2019 Erythrocyte distribution width (RBC) [Ratio] 13.2 % Normal 11.5-14.5 [facility] Comment on above: Performed By: #### B GLU #### [address] [place], [place] Hematocrit (Bld) [Volume fraction] 33.8 % Low 35.0-47.0 [facility] Comment on above: Performed By: #### B GLU #### [address] [place], [place] Hemoglobin (Bld) [Mass/Vol] 11.0 g/dL Low 11.7-16.0 [facility] Comment on above: Performed By: #### B GLU #### [address] [place], [place] MCH (RBC) [Entitic mass] 30.3 pg Normal 26.0-34.0 [facility] Comment on above: Performed By: #### B GLU #### [facility] [address] [place], [place] MCHC (RBC) [Mass/Vol] 32.6 % Normal 32.0-36.0 [facility] Comment on above: Performed By: #### B GLU #### [facility] [address] [place], [place] MCV (RBC) [Entitic vol] 92.7 fL Normal 79.0-98.0 [facility] Comment on above: Performed By: #### B GLU #### [address] [place], [place] Platelet mean volume (Bld) [Entitic vol] 10.7 fL High 7.4-10.4 [facility] Comment on above: Performed By: #### B GLU #### [address] [place], [place] Platelets (Bld) [#/Vol] 169 10*3/uL Normal 140-440 [facility] Comment on above: Performed By: #### B GLU #### [address] [place], [place] RBC (Bld) [#/Vol] 3.65 10*6/uL Low 3.80-5.20 [facility] Comment on above: Performed By: #### B GLU #### [address] [place], [place] WBC (Bld) [#/Vol] 18.8 10*3/uL High 3.6-10.7 [facility] Comment on above: Performed By: #### B GLU #### [address] [place], [place] POCT Glucoseon 03-02-2019 Glucose [Mass/Vol] 168 mg/dL High 70 - 100 mg/dL [facility] [place] Comment on above: Test performed by ucose meter. Results may be 10%-15% lower than serum/plasma values. (CLIA ID [id number]) Interpretation and review of laboratory results Abnormal [facility] [place], [place] Test Performed by [facility], [address] [facility] [place] [address] [facility] [place] Glucose [Mass/Vol] 249 mg/dL High 70 - 100 mg/dL [facility] [place] Comment on above: Test performed by gl ucose meter. Results may be 10%-15% lower than serum/plasma values. (CLIA ID [id number]) Interpretation and review of laboratory results Abnormal [facility] [place] Test Performed by [employer] [facility], [address] [place] [place] [address] [facility] [place] Glucose [Mass/Vol] 324 mg/dL High 70 - 100 mg/dL [facility] [place] Comment on above: Test performed by gl ucose meter. Results may be 10%-15% lower than serum/plasma values. (CLIA ID [id number]) Interpretation and review of laboratory results Abnormal [facility] [place] Test Performed by [employer] [facility], [address] [facility] [place] [address] [facility] [place] Glucose [Mass/Vol] 347 mg/dL High 70 - 100 mg/dL [facility] [place] Comment on above: Test performed by gl ucose meter. Results may be 10%-15% lower than serum/plasma values. (CLIA ID [id number]) Interpretation and review of laboratory results Abnormal [facility] [place] Test Performed by [employer] [facility], [address] [place] [address] [facility] [place], [place] XR CHEST PORTABLEon 03-02-20 19 Brian, [facility] Incoming Radiology Results From [facility] - 03/02/2019 6:17 AM EST Patient Name: CHRISTY FRANCIS ---Diagnostic Radiology--- Exam Date/Time 03/02/2019 06:07:22 EST Exam CR Chest Portable Ordering Physician GRANT TAYLOR Accession Number [id number] CPT4 Codes 95074 () Reason For Exam POST OP OPEN [...] JEFFREY Transcribed Date and Time: 03/02/2019 6:14 [place], [place] Patient Name: CHRISTY FRANCIS ---Diagnostic Radiology--- Exam Date/Time 03/02/2019 06:07:22 EST Exam CR Chest Portable Ordering Physician GRANT TAYLOR Accession Number [id number] CPT4 Codes 23510 () Reason For Exam POST OP OPEN [...] JEFFREY Transcribed Date and Time: 03/02/2019 6:14 [place], [place] Basic Metabolic Panelon 02-17 Calcium [Mass/Vol] 8.9 mg/dL Normal 8.4-10.4 [facility] Comment on above: Performed By: #### B GLU #### [address] [address] Glucose [Mass/Vol] 293 mg/dL High 70-100 [facility] Comment on above: Performed By: #### B GLU #### [facility] [address] [place], [place] Anion gap [Moles/Vol] 11 Normal [facility] Comment on above: Performed By: #### B GLU #### [facility] [address], [place] CO2 [Moles/Vol] 20 mmol/L Low 22-30 [facility] Comment on above: Performed By: #### B GLU #### [place] [address], [place] Creatinine [Mass/Vol] 1.40 mg/dL High 0.52-1.25 [facility] Comment on above: Performed By: #### B GLU #### [place] [address], [place] GFR/1.73 sq M predicted among blacks MDRD (S/P/Bld) [Vol rate/Area] 45.2 mL/min/{1.73_m2} Normal >60 [facility] Comment on above: Performed By: #### B GLU #### [place] [address], [place] GFR/1.73 sq M predicted among non-blacks MDRD (S/P/Bld) [Vol rate/Area] 37.3 mL/min/{1.73_m2} Normal >60 [facility] Comment on above: Result Comment: Sour ce- MDRD equation with creatinine calibration to IDMS(NKDEP) eGFR not recommended for drug dose adjustment Performed By: #### B GLU #### [facility] [address], [place] Urea nitrogen [Mass/Vol] 33 mg/dL High 7-20 [facility] Comment on above: Performed By: #### B GLU #### [facility] [address], [place] Chloride [Moles/Vol] 102 mmol/L Normal 98-107 [facility] Comment on above: Performed By: #### B GLU #### [place] [address] [place], [place] Potassium [Moles/Vol] 5.5 mmol/L High 3.5-5.1 [facility] Comment on above: Performed By: #### B GLU #### [facility] [address], [place] Sodium [Moles/Vol] 132 mmol/L Low 135-145 [facility] Comment on above: Performed By: #### B GLU #### [facility] [address], [place] Anion gap [Moles/Vol] 11 mmol/L [facility], [place] Calcium [Mass/Vol] 8.9 mg/dL 8.4 - 10. 4 mg/dL [place], [place] Chloride [Moles/Vol] 102 mmol/L 98 - 10 7 mmol/L [facility], [place] CO2 [Moles/Vol] 20 mmol/L Low 22 - 30 mmol/L [place], [place] Creatinine [Mass/Vol] 1.4 mg/dL High 0.52 - 1.25 mg/dL [facility], [place] EGFR IF NonAfrican [place] 37.3 mL/min >60 [place], [place] Comment on above: Source- MDRD equatio n with creatinine calibration to IDMS(NKDEP) eGFR not recommended for drug dose adjustment GFR/1.73 sq M predicted among blacks MDRD (S/P/Bld) [Vol rate/Area] 45.2 mL/min/{1.73_m2} >60 [facility], [place] Glucose [Mass/Vol] 293 mg/dL High 70 - 100 mg/dL [place], [place] Interpretation and review of laboratory results Abnormal [place], [place] Potassium [Moles/Vol] 5.5 mmol/L High 3.5 - 5.1 mmol/L [facility], [place] Sodium [Moles/Vol] 132 mmol/L Low 135 - 145 mmol/L [facility], [place] Urea nitrogen [Mass/Vol] 33 mg/dL High 7 - 20 mg/dL [place], [place] Test Performed by [facility], [address], [place], [place] Calcium [Mass/Vol] 9.1 mg/dL Normal 8.4-10.4 [facility] Comment on above: Performed By: #### H AUSTIN BMP3, MG3 ####[employer] [place] [place] Anion gap [Moles/Vol] 10 Normal [facility] Comment on above: Performed By: #### H AUSTIN BMP3, MG3 ####[facility] [employer] [id number] [place] [place] CO2 [Moles/Vol] 22 mmol/L Normal 22-30 [facility] Comment on above: Performed By: #### H AUSTIN BMP3, MG3 ####[employer] [place] Creatinine [Mass/Vol] 1.63 mg/dL High 0.52-1.25 [facility] Comment on above: Performed By: #### H AUSTIN BMP3, MG3 ####[employer] [place] GFR/1.73 sq M predicted among blacks MDRD (S/P/Bld) [Vol rate/Area] 37.9 mL/min/{1.73_m2} Normal >60 [facility] Comment on above: Performed By: #### H AUSTIN BMP3, MG3 ####[employer] [place] [place] GFR/1.73 sq M predicted among non-blacks MDRD (S/P/Bld) [Vol rate/Area] 31.3 mL/min/{1.73_m2} Normal >60 [facility] Comment on above: Result Comment: Sour ce- MDRD equation with creatinine calibration to IDMS(NKDEP) eGFR not recommended for drug dose adjustment Performed By: #### H AUSTIN, BMP3, MG3 ####[employer] [place], [place] Glucose [Mass/Vol] 90 mg/dL Normal 70-100 [facility] Comment on above: Performed By: #### H AUSTIN BMP3, MG3 ####[facility] [place] [place] [address] Urea nitrogen [Mass/Vol] 32 mg/dL High 7-20 [facility] Comment on above: Performed By: #### H SANGEETA AVILA3, MG3 ####[facility] [place] [address] Chloride [Moles/Vol] 108 mmol/L High 98-107 [facility] Comment on above: Performed By: #### H SANGEETA AVILA3, MG3 ####[facility] [place] [address] Potassium [Moles/Vol] 5.7 mmol/L High 3.5-5.1 [facility] Comment on above: Performed By: #### H SANGEETA AVILA3, MG3 ####[facility] [place] [address] Sodium [Moles/Vol] 140 mmol/L Normal 135-145 [facility] Comment on above: Performed By: #### H SANGEETA AVILA3, MG3 ####[facility] [place] [address] Anion gap [Moles/Vol] 10 mmol/L [place], [place] Calcium [Mass/Vol] 9.1 mg/dL 8.4 - 10. 4 mg/dL [place], [place] Chloride [Moles/Vol] 108 mmol/L High 98 - 10 7 mmol/L [place] CO2 [Moles/Vol] 22 mmol/L 22 - 30 mmol/L [place] Creatinine [Mass/Vol] 1.63 mg/dL High 0.52 - 1.25 mg/dL [place], [place] EGFR IF NonAfrican [place] 31.3 mL/min >60 [place] Comment on above: Source- MDRD equatio n with creatinine calibration to IDMS(NKDEP) eGFR not recommended for drug dose adjustment GFR/1.73 sq M predicted among blacks MDRD (S/P/Bld) [Vol rate/Area] 37.9 mL/min/{1.73_m2} >60 [place], [place] Glucose [Mass/Vol] 90 mg/dL 70 - 100 mg/dL [place] Interpretation and review of laboratory results Abnormal [place] Potassium [Moles/Vol] 5.7 mmol/L High 3.5 - 5.1 mmol/L [place] Sodium [Moles/Vol] 140 mmol/L 135 - 145 mmol/L [place], [place] Urea nitrogen [Mass/Vol] 32 mg/dL High 7 - 20 mg/dL [place] CBCon 03-01-2019 Erythrocyte distribution width (RBC) [Ratio] 13.5 % 11.5 - 14.5 % [place], [place] Hematocrit (Bld) [Volume fraction] 34.2 % Low 35 - 47 % [place], [place] Hemoglobin (Bld) [Mass/Vol] 11.1 g/dL Low 11.7 - 16 g/dL [place] Interpretation and review of laboratory results Abnormal [place] MCH (RBC) [Entitic mass] 30.1 pg 26 - 34 pg [place] MCHC (RBC) [Mass/Vol] 32.4 % 32 - 36 % [place], [place] MCV (RBC) [Entitic vol] 92.9 fL 79 - 98 fL [place], [place] Platelet mean volume (Bld) [Entitic vol] 9.8 fL 7.4 - 10.4 fL [place], [place] Platelets (Bld) [#/Vol] 151 10*3/uL 140 - 440 10*3/uL [place] RBC (Bld) [#/Vol] 3.68 10*6/uL Low 3.8 - 5.2 10*6/uL [place] WBC (Bld) [#/Vol] 17.8 10*3/uL High 3.6 - 10.7 10*3/uL [place], [place] CR Chest Portableon 03-01-20 19 CR Chest Portable Patient Name: CHRISTY FRANCIS Diagnostic Radiology Exam Date/Time 03/01/2019 07:10:13 EST Exam CR Chest Portable Ordering Physician GRANT TAYLOR Accession Number [id number] CPT4 Codes 35687 () Reason For Exam sob Report CLINICAL INFORMATION: Shortness of breath. Status post open heart surgery. CHEST X-RAY, PORTABLE, 0537 hours: An AP portable view is compared to the prior examination of previous day. There is no change in the mediastinal or left lower hemithorax chest tubes or right internal jugular Anderson-Jose introducer sheath. There is stable slightly limited lung volumes. No pneumothorax or other acute process or interval change identified. Report Dictated on Final Dictated: 03/01/2019 7:23 am Dictating Physician: MD JIMENEZ HARLAN Signed Date and Time: 03/01/2019 7:25 am Signed by: MD JIMENEZ HARLAN Transcribed Date and Time: 03/01/2019 7:23 Normal [facility] EKG 12 leadon 03-01-2019 [facility] Test Date: 2019-03-01 Pat Name: Christy Francis Department: [facility] Room: [facility] Gender: F Cow Puncher: MISAEL : 1950 Requested By: GRANT TAYLOR A Order Number: [id number] Reading MD: Saray Yates Measurements Intervals Musella Rate: 97 P: 62 AR: 139 QRS: 28 QRSD: 67 T: 83 QT: 327 QTc: 416 Interpretive Statements Sinus rhythm Inferior infarct, acute Electronically Signed On 03-01-2019 9:20:04 EST by [facility] Incoming Cardiology Results From [facility] - 03/01/2019 9:21 AM EST [facility] Test Date: 2019-03-01 Pat Name: Christy Francis Department: [facility] Room: [id number] Gender: F Cow Puncher: MG : 1950 Requested By: GRANT TAYLOR A Order Number: [id number] Reading MD: Saray Yates Measurements Intervals Musella Rate: 97 P: 62 AR: 139 QRS: 28 QRSD: 67 T: 83 QT: 327 QTc: 416 Interpretive Statements Sinus rhythm Inferior infarct, acute Electronically Signed On 03-01-2019 9:20:04 EST by [facility] [place], [place] Glucose,Bedsideon 03-01-2019 Glucose [Mass/Vol] 334 mg/dL High 70-100 [facility] Comment on above: Result Comment: Test performed by glucose meter. Results may be 10%-15% lower than serum/plasma values. (CLIA ID [id number]) Performed By: #### B GLU #### [facility] [address] [place] [address] Glucose [Mass/Vol] 357 mg/dL High 70-100 [facility] Comment on above: Result Comment: Test performed by glucose meter. Results may be 10%-15% lower than serum/plasma values. (CLIA ID [id number]) Performed By: #### B GLU #### [facility] [address] [place] [address] Glucose [Mass/Vol] 92 mg/dL Normal 70-100 [facility] Comment on above: Result Comment: Test performed by glucose meter. Results may be 10%-15% lower than serum/plasma values. (CLIA ID [id number]) Performed By: #### B GLU ####[facility] [address] [place] [address] Glucose [Mass/Vol] 85 mg/dL Normal 70-100 [facility] Comment on above: Result Comment: Test performed by glucose meter. Results may be 10%-15% lower than serum/plasma values. (CLIA ID [id number]) Performed By: #### B GLU #### [facility] [address] [place] [address] Glucose [Mass/Vol] 95 mg/dL Normal 70-100 [facility] Comment on above: Result Comment: Test performed by glucose meter. Results may be 10%-15% lower than serum/plasma values. (CLIA ID [id number]) Performed By: #### B GLU #### [employer] [facility] [address] [place] [address] Glucose [Mass/Vol] 111 mg/dL High 70-100 [facility] Comment on above: Result Comment: Test performed by glucose meter. Results may be 10%-15% lower than serum/plasma values. (CLIA ID [id number]) Performed By: #### B GLU #### [facility] [address] [place] [address] Glucose [Mass/Vol] 149 mg/dL High 70-100 [facility] Comment on above: Result Comment: Test performed by glucose meter. Results may be 10%-15% lower than serum/plasma values. (CLIA ID [id number]) Performed By: #### B GLU #### [facility] [address] [place] [address] Glucose [Mass/Vol] 153 mg/dL High 70-100 [facility] Comment on above: Result Comment: Test performed by glucose meter. Results may be 10%-15% lower than serum/plasma values. (CLIA ID [id number]) Performed By: #### B GLU #### [place] [address] [place] [address] Glucose [Mass/Vol] 165 mg/dL High 70-100 [facility] Comment on above: Result Comment: Test performed by glucose meter. Results may be 10%-15% lower than serum/plasma values. (CLIA ID [id number]) Performed By: #### B GLU #### [place] [address] [place] [address] Glucose [Mass/Vol] 150 mg/dL High 70-100 [facility] Comment on above: Result Comment: Test performed by glucose meter. Results may be 10%-15% lower than serum/plasma values. (CLIA ID [id number]) Performed By: #### B GLU #### [facility] [address] [place] [address] Glucose [Mass/Vol] 172 mg/dL High 70-100 [facility] Comment on above: Result Comment: Test performed by glucose meter. Results may be 10%-15% lower than serum/plasma values. (CLIA ID [id number]) Performed By: #### B GLU #### [facility] [address] [place] [address] Glucose [Mass/Vol] 112 mg/dL High 70-100 [facility] Comment on above: Result Comment: Test performed by glucose meter. Results may be 10%-15% lower than serum/plasma values. (CLIA ID [id number]) Performed By: #### B GLU ####[employer] [address] [place] [address] Glucose [Mass/Vol] 96 mg/dL Normal 70-100 [facility] Comment on above: Result Comment: Test performed by glucose meter. Results may be 10%-15% lower than serum/plasma values. (CLIA ID [id number]) Performed By: #### B GLU ####[facility] [employer] [address] [place] [address] Glucose [Mass/Vol] 95 mg/dL Normal 70-100 [facility] Comment on above: Result Comment: Test performed by glucose meter. Results may be 10%-15% lower than serum/plasma values. (CLIA ID [id number]) Performed By: #### B GLU ####[employer] [place] [address] Glucose [Mass/Vol] 136 mg/dL High 70-100 [facility] Comment on above: Result Comment: Test performed by glucose meter. Results may be 10%-15% lower than serum/plasma values. (CLIA ID [id number]) Performed By: #### B GLU ####[facility] [employer] [address] [place] [address] Glucose [Mass/Vol] 162 mg/dL High 70-100 [facility] Comment on above: Result Comment: Test performed by glucose meter. Results may be 10%-15% lower than serum/plasma values. (CLIA ID [id number]) Performed By: #### B GLU ####[facility] [address] [place] [address] Hematologyon 03-01-2019 ABO and Rh group Nom (Bld) [address] [facility]- [place], [place] Hemogramon 03-01-2019 Erythrocyte distribution width (RBC) [Ratio] 13.5 % Normal 11.5-14.5 [facility] Comment on above: Performed By: #### H EMOG, BMP3, MG3 ####[address] Hematocrit (Bld) [Volume fraction] 34.2 % Low 35.0-47.0 [facility] Comment on above: Performed By: #### H EMOG, BMP3, MG3 ####[address] Hemoglobin (Bld) [Mass/Vol] 11.1 g/dL Low 11.7-16.0 [facility] Comment on above: Performed By: #### H EMONicole, BMP3, MG3 ####[address] MCH (RBC) [Entitic mass] 30.1 pg Normal 26.0-34.0 [facility] Comment on above: Performed By: #### H EMONicole, BMP3, MG3 ####[address] MCHC (RBC) [Mass/Vol] 32.4 % Normal 32.0-36.0 [facility] Comment on above: Performed By: #### H EMONicole, BMP3, MG3 ####[address] MCV (RBC) [Entitic vol] 92.9 fL Normal 79.0-98.0 [facility] Comment on above: Performed By: #### H EMOG, BMP3, MG3 ####[address] Platelet mean volume (Bld) [Entitic vol] 9.8 fL Normal 7.4-10.4 [facility] Comment on above: Performed By: #### H EMOG, BMP3, MG3 ####[address] Platelets (Bld) [#/Vol] 151 10*3/uL Normal 140-440 [facility] Comment on above: Performed By: #### H EMOG, BMP3, MG3 ####[facility] [place], [place] RBC (Bld) [#/Vol] 3.68 10*6/uL Low 3.80-5.20 [facility] Comment on above: Performed By: #### H EMOG, BMP3, MG3 ####[facility] [place], [place] WBC (Bld) [#/Vol] 17.8 10*3/uL High 3.6-10.7 [facility] Comment on above: Performed By: #### H EMOG, BMP3, MG3 ####[place] [address] [place], [place] Leukodepleted Red Cellson Leukodepleted Red Cells Leukodepleted Red Cells: [id number] released 03/01/19 07:45 JMV Unit Blood Type: A Unit Blood Rh: POS Blood Product Code: AS1 Unit Number: [id number] Unit Status: released Barcoded Unit Number: =[id number] Barcoded Product Code: = Barcoded ABO/Rh: =%6200 Unit Expiration: Leukodepleted Red Cells: [id number] released 03/01/19 07:45 JMV Unit Blood Type: A Unit Blood Rh: POS Blood Product Code: AS1 Unit Number: [id number] Unit Status: released Barcoded Unit Number: =[id number] Barcoded Product Code: = Barcoded ABO/Rh: =%6200 Unit Expiration: Normal [facility] Comment on above: Performed By: #### H EMOG, CMP3M #### [facility] [address], [place] Magnesiumon 03-01-2019 Magnesium [Mass/Vol] 2.1 mg/dL Normal 1.6-2.3 [facility] Comment on above: Performed By: #### H EMOG, BMP3, MG3 ####[facility] [place], [place] Magnesium [Mass/Vol] 2.1 mg/dL 1.6 - 2 .3 mg/dL [place], [place] Metabolic Panelon 03-01-2019 Sodium [Moles/Vol] [id number] [place], [place] Sodium [Moles/Vol] [id number] mmol/L [place], [place] Sodium [Moles/Vol] released [place], [place] Otheron 03-01-2019 Test Performed by [facility], [facility] [address] [place], [place] [address] [place] [address] Test Performed by [facility], [address] [place], [place] [address] [place] [address] POCT Glucoseon 03-01-2019 Glucose [Mass/Vol] 334 mg/dL High 70 - 100 mg/dL [place], [place] Comment on above: Test performed by gl ucose meter. Results may be 10%-15% lower than serum/plasma values. (CLIA ID [id number]) Interpretation and review of laboratory results Abnormal [place], [place] Test Performed by [facility], [facility] [address] [place], [place] [address] [place] [address] Glucose [Mass/Vol] 357 mg/dL High 70 - 100 mg/dL [place], [place] Comment on above: Test performed by gl ucose meter. Results may be 10%-15% lower than serum/plasma values. (CLIA ID [id number]) Interpretation and review of laboratory results Abnormal [place], [place] Test Performed by [facility], [facility] [address] [place], [place] [address] [place] [address] Glucose [Mass/Vol] 85 mg/dL 70 - 100 mg/dL [place], [place] Comment on above: Test performed by gl ucose meter. Results may be 10%-15% lower than serum/plasma values. (CLIA ID [id number]) Test Performed by [facility], [address], [place] [address] [place] [address] Glucose [Mass/Vol] 95 mg/dL 70 - 100 mg/dL [place], [place] Comment on above: Test performed by gl ucose meter. Results may be 10%-15% lower than serum/plasma values. (CLIA ID [id number]) Test Performed by [facility], [address] [place] [address] [facility] [place], [place] Glucose [Mass/Vol] 111 mg/dL High 70 - 100 mg/dL [facility] [place] Comment on above: Test performed by gl ucose meter. Results may be 10%-15% lower than serum/plasma values. (CLIA ID [id number]) Interpretation and review of laboratory results Abnormal [facility] Test Performed by [facility], [address] [place] [address] [facility] Glucose [Mass/Vol] 149 mg/dL High 70 - 100 mg/dL [facility] [place] Comment on above: Test performed by gl ucose meter. Results may be 10%-15% lower than serum/plasma values. (CLIA ID [id number]) Interpretation and review of laboratory results Abnormal [facility] [place] Test Performed by [facility], [address] [place] [address] [facility] Glucose [Mass/Vol] 153 mg/dL High 70 - 100 mg/dL [facility] [place] Comment on above: Test performed by gl ucose meter. Results may be 10%-15% lower than serum/plasma values. (CLIA ID [id number]) Interpretation and review of laboratory results Abnormal [facility] [place] Test Performed by [facility], [address] [place] [address] [facility] Glucose [Mass/Vol] 165 mg/dL High 70 - 100 mg/dL [facility] [place] Comment on above: Test performed by gl ucose meter. Results may be 10%-15% lower than serum/plasma values. (CLIA ID [id number]) Interpretation and review of laboratory results Abnormal [facility] Test Performed by [facility], [address] [place] [address] [facility] Glucose [Mass/Vol] 150 mg/dL High 70 - 100 mg/dL [facility] Comment on above: Test performed by gl ucose meter. Results may be 10%-15% lower than serum/plasma values. (CLIA ID [id number]) Interpretation and review of laboratory results Abnormal [facility] [place] [place] Test Performed by [facility], [facility] [place] [address] [facility], [place] Glucose [Mass/Vol] 172 mg/dL High 70 - 100 mg/dL [place], [place] Comment on above: Test performed by gl ucose meter. Results may be 10%-15% lower than serum/plasma values. (CLIA ID [id number]) Interpretation and review of laboratory results Abnormal [facility] [place] Test Performed by [facility], [facility] [address] [place], [place] [address] [place] [address] Glucose [Mass/Vol] 112 mg/dL High 70 - 100 mg/dL [place] Comment on above: Test performed by gl ucose meter. Results may be 10%-15% lower than serum/plasma values. (CLIA ID [id number]) Interpretation and review of laboratory results Abnormal [facility] [place] Test Performed by [facility], [facility] [address] [place], [place] [address] [place] [address] Glucose [Mass/Vol] 96 mg/dL 70 - 100 mg/dL [place] Comment on above: Test performed by gl ucose meter. Results may be 10%-15% lower than serum/plasma values. (CLIA ID [id number]) Test Performed by [facility], [facility] [address] [place], [place] [address] [place] [address] Glucose [Mass/Vol] 95 mg/dL 70 - 100 mg/dL [place] Comment on above: Test performed by gl ucose meter. Results may be 10%-15% lower than serum/plasma values. (CLIA ID [id number]) Test Performed by [facility], [address], [place] [address] [place] [address] PREPARE RBC (CROSSMATCH), 2 Unitson 03-01-2019 Blood product unit ID (Dose) [#] [id number] [place], [place] Blood product unit ID (Dose) [#] [id number] [facility] Potassiumon 03-01-2019 Potassium [Moles/Vol] 5.4 mmol/L High 3.5-5.1 [facility] Comment on above: Performed By: #### B GLU #### [address] [address] Interpretation and review of laboratory results Abnormal [facility] Potassium [Moles/Vol] 5.4 mmol/L High 3.5 - 5.1 mmol/L [facility] Test Performed by [facility], [address] [place] [address] [address] [facility], [place] XR CHEST PORTABLEon 03-01-20 Patient Name: CHRISTY FRANCIS ---Diagnostic Radiology--- Exam Date/Time 03/01/2019 07:10:13 EST Exam CR Chest Portable Ordering Physician GRANT TAYLOR Accession Number [id number] CPT4 Codes 55664 () Reason For Exam sob Report CLINICAL INFORMATION: Shortness of breath. Status post open heart surgery. CHEST X-RAY, PORTABLE, 0537 hours: An AP portable view is compared to the prior examination of previous day. There is no change in the mediastinal or left lower hemithorax chest tubes or right internal jugular Anderson-Jose introducer sheath. There is stable slightly limited lung volumes. No pneumothorax or other acute process or interval change identified. Report Dictated on --- Final --- Dictated: 03/01/2019 7:23 am Dictating Physician: MD JIMENEZ HARLAN Signed Date and Time: 03/01/2019 7:25 am Signed by: MD JIMENEZ HARLAN Transcribed Date and Time: 03/01/2019 7:23 [facility] Kathie Torres Incoming Radiology Results From [facility] - 03/01/2019 7:26 AM EST Patient Name: CHRISTY FRANCIS ---Diagnostic Radiology--- Exam Date/Time 03/01/2019 07:10:13 EST Exam CR Chest Portable Ordering Physician GRANT TAYLOR Accession Number [id number] CPT4 Codes 53310 () Reason For Exam sob Report CLINICAL INFORMATION: Shortness of breath. Status post open heart surgery. CHEST X-RAY, PORTABLE, 0537 hours: An AP portable view is compared to the prior examination of previous day. There is no change in the mediastinal or left lower hemithorax chest tubes or right internal jugular Anderson-Jose introducer sheath. There is stable slightly limited lung volumes. No pneumothorax or other acute process or interval change identified. Report Dictated on --- Final --- Dictated: 03/01/2019 7:23 am Dictating Physician: MD JIMENEZ HARLAN Signed Date and Time: 03/01/2019 7:25 am Signed by: MD JIMENEZ HARLAN Transcribed Date and Time: 03/01/2019 7:23 [place], [place] Basic Metabolic Panelon 11 Calcium [Mass/Vol] 9.3 mg/dL Normal 8.4-10.4 [facility] Comment on above: Performed By: #### B GLU #### [address] [address] [place], [place] Anion gap [Moles/Vol] 14 Normal [facility] Comment on above: Performed By: #### B GLU #### [address] CO2 [Moles/Vol] 18 mmol/L Low 22-30 [facility] Comment on above: Performed By: #### B GLU #### [address] [address] [place], [place] Creatinine [Mass/Vol] 1.35 mg/dL High 0.52-1.25 [facility] Comment on above: Performed By: #### B GLU #### [address] [address] [place], [place] GFR/1.73 sq M predicted among blacks MDRD (S/P/Bld) [Vol rate/Area] 47.1 mL/min/{1.73_m2} Normal >60 [facility] Comment on above: Performed By: #### B GLU #### [address] [address] [place], [place] GFR/1.73 sq M predicted among non-blacks MDRD (S/P/Bld) [Vol rate/Area] 38.9 mL/min/{1.73_m2} Normal >60 [facility] Comment on above: Result Comment: Sour ce- MDRD equation with creatinine calibration to IDMS(NKDEP) eGFR not recommended for drug dose adjustment Performed By: #### B GLU #### [facility] [address] [place], [place] Glucose [Mass/Vol] 127 mg/dL High 70-100 [facility] Comment on above: Performed By: #### B GLU #### [address] [address] [address] [place], [place] Urea nitrogen [Mass/Vol] 25 mg/dL High 7-20 [facility] Comment on above: Performed By: #### B GLU #### [address] [address] [address] [place], [place] Chloride [Moles/Vol] 109 mmol/L High 98-107 [facility] Comment on above: Performed By: #### B GLU #### [address] [address] [address] [place], [place] Potassium [Moles/Vol] 4.7 mmol/L Normal 3.5-5.1 [facility] Comment on above: Performed By: #### B GLU #### [address] [address] [address] [place], [place] Sodium [Moles/Vol] 141 mmol/L Normal 135-145 [facility] Comment on above: Performed By: #### B GLU #### [address] [address] [address] [place], [place] Anion gap [Moles/Vol] 14 mmol/L [facility] [place], [place] Calcium [Mass/Vol] 9.3 mg/dL 8.4 - 10. 4 mg/dL [facility], [place] Chloride [Moles/Vol] 109 mmol/L High 98 - 10 7 mmol/L [facility], [place] CO2 [Moles/Vol] 18 mmol/L Low 22 - 30 mmol/L [facility], [place] Creatinine [Mass/Vol] 1.35 mg/dL High 0.52 - 1.25 mg/dL [place], [place] EGFR IF NonAfrican [place] 38.9 mL/min >60 [place], [place] Comment on above: Source- MDRD equatio n with creatinine calibration to IDMS(NKDEP) eGFR not recommended for drug dose adjustment GFR/1.73 sq M predicted among blacks MDRD (S/P/Bld) [Vol rate/Area] 47.1 mL/min/{1.73_m2} >60 [place], [place] Glucose [Mass/Vol] 127 mg/dL High 70 - 100 mg/dL [place] Potassium [Moles/Vol] 4.7 mmol/L 3.5 - 5.1 mmol/L [place] Sodium [Moles/Vol] 141 mmol/L 135 - 145 mmol/L [place] Urea nitrogen [Mass/Vol] 25 mg/dL High 7 - 20 mg/dL [place] Test Performed by [facility], [address] [place] [address] [place], [place] Potassium [Moles/Vol] 7.0 mmol/L Critically high 3.5-5.1 [facility] Comment on above: Result Comment: repe ated Performed By: #### B GLU #### [address] [address] [place], [place] Calcium [Mass/Vol] 9.2 mg/dL Normal 8.4-10.4 [facility] Comment on above: Performed By: #### B GLU #### [address] [address] [place], [place] Glucose [Mass/Vol] 115 mg/dL High 70-100 [facility] Comment on above: Performed By: #### B GLU #### [address] [address] [place], [place] Anion gap [Moles/Vol] 9 Normal [facility] Comment on above: Performed By: #### B GLU #### [address] [address] [place], [place] CO2 [Moles/Vol] 21 mmol/L Low 22-30 [facility] Comment on above: Performed By: #### B GLU #### [address] [address] [place] [address] Creatinine [Mass/Vol] 1.18 mg/dL Normal 0.52-1.25 [facility] Comment on above: Performed By: #### B GLU #### [facility] [address] [place] [address] GFR/1.73 sq M predicted among blacks MDRD (S/P/Bld) [Vol rate/Area] 55.0 mL/min/{1.73_m2} Normal >60 [facility] Comment on above: Performed By: #### B GLU #### [address] [address] [place] [address] GFR/1.73 sq M predicted among non-blacks MDRD (S/P/Bld) [Vol rate/Area] 45.4 mL/min/{1.73_m2} Normal >60 [facility] Comment on above: Result Comment: Sour ce- MDRD equation with creatinine calibration to IDMS(NKDEP) eGFR not recommended for drug dose adjustment Performed By: #### B GLU #### [address] [address] [address] [place], [place] Urea nitrogen [Mass/Vol] 25 mg/dL High 7-20 [facility] Comment on above: Performed By: #### B GLU #### [address] [address] [address] [place], [place] Chloride [Moles/Vol] 110 mmol/L High 98-107 [facility] Comment on above: Performed By: #### B GLU #### [address] [address] [address] [place], [place] Sodium [Moles/Vol] 139 mmol/L Normal 135-145 [facility] Comment on above: Performed By: #### B GLU #### [address] [address] [address] [place], [place] Anion gap [Moles/Vol] 9 mmol/L [facility], [place] Calcium [Mass/Vol] 9.2 mg/dL 8.4 - 10. 4 mg/dL [facility], [place] Chloride [Moles/Vol] 110 mmol/L High 98 - 10 7 mmol/L [place] CO2 [Moles/Vol] 21 mmol/L Low 22 - 30 mmol/L [place] Creatinine [Mass/Vol] 1.18 mg/dL 0.52 - 1.25 mg/dL [place], [place] EGFR IF NonAfrican [place] 45.4 mL/min >60 [place] Comment on above: Source- MDRD equatio n with creatinine calibration to IDMS(NKDEP) eGFR not recommended for drug dose adjustment GFR/1.73 sq M predicted among blacks MDRD (S/P/Bld) [Vol rate/Area] 55.0 mL/min/{1.73_m2} >60 [place], [place] Glucose [Mass/Vol] 115 mg/dL High 70 - 100 mg/dL [place] Interpretation and review of laboratory results Abnormal [place] Potassium [Moles/Vol] 7.0 mmol/L Critically high 3.5 - 5.1 mmol/L [place], [place] Comment on above: repeated Sodium [Moles/Vol] 139 mmol/L 135 - 145 mmol/L [place] Urea nitrogen [Mass/Vol] 25 mg/dL High 7 - 20 mg/dL [place] Test Performed by [facility], [address] [place] [id number] [place], [place] CBCon 02-28-2019 Erythrocyte distribution width (RBC) [Ratio] 13.1 % 11.5 - 14.5 % [place], [place] Hematocrit (Bld) [Volume fraction] 34.8 % Low 35 - 47 % [place] Hemoglobin (Bld) [Mass/Vol] 11.4 g/dL Low 11.7 - 16 g/dL [place] Interpretation and review of laboratory results Abnormal [place] MCH (RBC) [Entitic mass] 30.3 pg 26 - 34 pg [place] MCHC (RBC) [Mass/Vol] 32.8 % 32 - 36 % [place], [place] MCV (RBC) [Entitic vol] 92.3 fL 79 - 98 fL [place], [place] Platelet mean volume (Bld) [Entitic vol] 10.1 fL 7.4 - 10.4 fL [place], [place] Platelets (Bld) [#/Vol] 160 10*3/uL 140 - 440 10*3/uL [place] RBC (Bld) [#/Vol] 3.78 10*6/uL Low 3.8 - 5.2 10*6/uL [place] WBC (Bld) [#/Vol] 18.8 10*3/uL High 3.6 - 10.7 10*3/uL [place] Test Performed by [id number] [place] [address] CR Chest Portableon 02-29-20 19 CR Chest Portable Patient Name: CHRISTY FRANCIS Diagnostic Radiology Exam Date/Time 02/28/2019 07:24:40 EST Exam CR Chest Portable Ordering Physician GRANT TAYLOR Accession Number [id number] CPT4 Codes 60041 () Reason For Exam POST OPEN HEART Report CHEST - PORTABLE: CLINICAL INDICATION: Respiratory distress for follow up TECHNIQUE: Portable AP COMPARISON: One day ago FINDINGS: Life support devices: Right jugular venous sheath is noted. The Anderson-Jose catheter has been removed. Endotracheal tube and [...] Transcribed Date and Time: 02/28/2019 6:53 Normal [facility] EKG 12 leadon 02-28-2019 [facility] Test Date: 2019-02-28 Pat Name: Christy Francis Department: 1AHLU Room: [id number] Gender: F Cow Puncher: SINA : 1950 Requested By: Order Number: [id number] Reading MD: Bryce Hayden Measurements Intervals Musella Rate: 95 P: 61 AR: 146 QRS: 11 QRSD: 85 T: 93 QT: 321 QTc: 404 Interpretive Statements Sinus rhythm Left atrial enlargement Nonspecific T abnormalities, lateral leads Electronically Signed On 02-28-2019 12:56:[address], [facility] Incoming Cardiology Results From [employer] - 02/28/2019 12:57 PM EST [facility] Test Date: 2019-02-28 Pat Name: Christy Francis Department: 1AHLU Room: 1H04 Gender: F Cow Puncher: SINA : 1950 Requested By: Order Number: [id number] Reading MD: Bryce Hayden Measurements Intervals Musella Rate: 95 P: 61 AR: 146 QRS: 11 QRSD: 85 T: 93 QT: 321 QTc: 404 Interpretive Statements Sinus rhythm Left atrial enlargement Nonspecific T abnormalities, lateral leads Electronically Signed On 02-28-2019 12:56:[address] [facility] Glucose,Bedsideon 02-28-2019 Glucose [Mass/Vol] 214 mg/dL [address] Comment on above: Result Comment: Test performed by glucose meter. Results may be 10%-15% lower than serum/plasma values. (CLIA ID [id number]) Performed By: #### B GLU ####[facility] [address] [place] [address] Glucose [Mass/Vol] 196 mg/dL [facility] [address] Comment on above: Result Comment: Test performed by glucose meter. Results may be 10%-15% lower than serum/plasma values. (CLIA ID [id number]) Performed By: #### B GLU #### [facility] [address] [place] [address] Glucose [Mass/Vol] 135 mg/dL High [address] [facility] Comment on above: Result Comment: Test performed by glucose meter. Results may be 10%-15% lower than serum/plasma values. (CLIA ID [id number]) Performed By: #### B GLU #### [facility] [address] [place] [address] Glucose [Mass/Vol] 121 mg/dL High 70-100 [facility] Comment on above: Result Comment: Test performed by glucose meter. Results may be 10%-15% lower than serum/plasma values. (CLIA ID [id number]) Performed By: #### B GLU #### [facility] [address] [facility] [place] [address] Glucose [Mass/Vol] 76 mg/dL Normal 70-100 [facility] Comment on above: Result Comment: Test performed by glucose meter. Results may be 10%-15% lower than serum/plasma values. (CLIA ID [id number]) Performed By: #### B GLU #### [address] [facility] [place] [address] Glucose [Mass/Vol] 76 mg/dL Normal 70-100 [facility] Comment on above: Result Comment: Test performed by glucose meter. Results may be 10%-15% lower than serum/plasma values. (CLIA ID [id number]) Performed By: #### B GLU #### [address] [place] [address] Glucose [Mass/Vol] 90 mg/dL Normal 70-100 [facility] Comment on above: Result Comment: Test performed by glucose meter. Results may be 10%-15% lower than serum/plasma values. (CLIA ID [id number]) Performed By: #### B GLU #### [facility] [address] [facility] [place] [address] Glucose [Mass/Vol] 97 mg/dL Normal 70-100 [facility] Comment on above: Result Comment: Test performed by glucose meter. Results may be 10%-15% lower than serum/plasma values. (CLIA ID [id number]) Performed By: #### B GLU #### [facility] [address] [facility] [place] [address] Glucose [Mass/Vol] 123 mg/dL High 70-100 [facility] Comment on above: Result Comment: Test performed by glucose meter. Results may be 10%-15% lower than serum/plasma values. (CLIA ID [id number]) Performed By: #### B GLU #### [facility] [address] [place] [address] Glucose [Mass/Vol] 133 mg/dL High 70-100 [facility] Comment on above: Result Comment: Test performed by glucose meter. Results may be 10%-15% lower than serum/plasma values. (CLIA ID [id number]) Performed By: #### B GLU #### [facility] [address] [place] [address] Glucose [Mass/Vol] 115 mg/dL High 70-100 [facility] Comment on above: Result Comment: Test performed by glucose meter. Results may be 10%-15% lower than serum/plasma values. (CLIA ID [id number]) Performed By: #### B GLU #### [facility] [address] [place] [address] Glucose [Mass/Vol] 138 mg/dL High 70-100 [place] Comment on above: Test performed by gl ucose meter. Results may be 10%-15% lower than serum/plasma values. (CLIA ID [id number]) Result Comment: Test performed by glucose meter. Results may be 10%-15% lower than serum/plasma values. (CLIA ID [id number]) Performed By: #### B GLU #### [facility] [address] [place] [address] Glucose [Mass/Vol] 135 mg/dL High 70-100 [facility] Comment on above: Result Comment: Test performed by glucose meter. Results may be 10%-15% lower than serum/plasma values. (CLIA ID [id number]) Performed By: #### B GLU #### [facility] [address] [place] [address] Glucose [Mass/Vol] 134 mg/dL High 70-100 [facility] Comment on above: Result Comment: Test performed by glucose meter. Results may be 10%-15% lower than serum/plasma values. (CLIA ID [id number]) Performed By: #### B GLU #### [facility] [address] [place] [address] Glucose [Mass/Vol] 143 mg/dL High 70-100 [facility] Comment on above: Result Comment: Test performed by glucose meter. Results may be 10%-15% lower than serum/plasma values. (CLIA ID [id number]) Performed By: #### B GLU #### [facility] [address] [place] [address] Glucose [Mass/Vol] 110 mg/dL High 70-100 [facility] Comment on above: Result Comment: Test performed by glucose meter. Results may be 10%-15% lower than serum/plasma values. (CLIA ID [id number]) Performed By: #### B GLU #### [facility] [address] [place] [address] Glucose [Mass/Vol] 155 mg/dL High 70-100 [place] Comment on above: Test performed by gl ucose meter. Results may be 10%-15% lower than serum/plasma values. (CLIA ID [id number]) Result Comment: Test performed by glucose meter. Results may be 10%-15% lower than serum/plasma values. (CLIA ID [id number]) Performed By: #### B GLU #### [facility] [address] [place] [address] Glucose [Mass/Vol] 104 mg/dL High 70-100 [facility] Comment on above: Result Comment: Test performed by glucose meter. Results may be 10%-15% lower than serum/plasma values. (CLIA ID [id number]) Performed By: #### B GLU #### [facility] [address] [place] [address] Glucose [Mass/Vol] 82 mg/dL Normal 70-100 [facility] Comment on above: Result Comment: Test performed by glucose meter. Results may be 10%-15% lower than serum/plasma values. (CLIA ID [id number]) Performed By: #### B GLU #### [facility] [address] [place] [address] Glucose [Mass/Vol] 92 mg/dL Normal 70-100 [facility] [place] Comment on above: Test performed by gl ucose meter. Results may be 10%-15% lower than serum/plasma values. (CLIA ID [id number]) Result Comment: Test performed by glucose meter. Results may be 10%-15% lower than serum/plasma values. (CLIA ID [id number]) Performed By: #### B GLU #### [facility] [address] [place] [address] Glucose [Mass/Vol] 110 mg/dL High 70-100 [facility] Comment on above: Result Comment: Test performed by glucose meter. Results may be 10%-15% lower than serum/plasma values. (CLIA ID [id number]) Performed By: #### B GLU #### [facility] [address] [place] [address] Glucose [Mass/Vol] 122 mg/dL High 70-100 [facility] Comment on above: Result Comment: Test performed by glucose meter. Results may be 10%-15% lower than serum/plasma values. (CLIA ID [id number]) Performed By: #### B GLU #### [facility] [address] [place] [address] Glucose [Mass/Vol] 152 mg/dL High 70-100 [facility] Comment on above: Result Comment: Test performed by glucose meter. Results may be 10%-15% lower than serum/plasma values. (CLIA ID [id number]) Performed By: #### B GLU #### [facility] [address] [place] [address] Glucose [Mass/Vol] 156 mg/dL High 70-100 [facility] Comment on above: Result Comment: Test performed by glucose meter. Results may be 10%-15% lower than serum/plasma values. (CLIA ID [id number]) Performed By: #### B GLU #### [facility] [address] [place] [address] Hemogramon 02-28-2019 Erythrocyte distribution width (RBC) [Ratio] 13.1 % Normal 11.5-14.5 [facility] Comment on above: Performed By: #### B GLU #### [address] [place] [address] Hematocrit (Bld) [Volume fraction] 34.8 % Low 35.0-47.0 [facility] Comment on above: Performed By: #### B GLU #### [address] [place] [address] Hemoglobin (Bld) [Mass/Vol] 11.4 g/dL Low 11.7-16.0 [facility] Comment on above: Performed By: #### B GLU #### [address] [place], [place] MCH (RBC) [Entitic mass] 30.3 pg Normal 26.0-34.0 [facility] Comment on above: Performed By: #### B GLU #### [address] [place], [place] MCHC (RBC) [Mass/Vol] 32.8 % Normal 32.0-36.0 [facility] Comment on above: Performed By: #### B GLU #### [address] [place], [place] MCV (RBC) [Entitic vol] 92.3 fL Normal 79.0-98.0 [facility] Comment on above: Performed By: #### B GLU #### [address] [place], [place] Platelet mean volume (Bld) [Entitic vol] 10.1 fL Normal 7.4-10.4 [facility] Comment on above: Performed By: #### B GLU #### [address] [place], [place] Platelets (Bld) [#/Vol] 160 10*3/uL Normal 140-440 [facility] Comment on above: Performed By: #### B GLU #### [address] [place], [place] RBC (Bld) [#/Vol] 3.78 10*6/uL Low 3.80-5.20 [facility] Comment on above: Performed By: #### B GLU #### [facility] [address] [place], [place] WBC (Bld) [#/Vol] 18.8 10*3/uL High 3.6-10.7 [facility] Comment on above: Performed By: #### B GLU #### [facility] [address] [place] [address] Otheron 02-28-2019 Interpretation and review of laboratory results Abnormal [facility], [place] POCT Glucoseon 02-28-2019 Glucose [Mass/Vol] 136 mg/dL High 70 - 100 mg/dL [facility] [place] [place] Comment on above: Test performed by gl ucose meter. Results may be 10%-15% lower than serum/plasma values. (CLIA ID [id number]) Interpretation and review of laboratory results Abnormal [facility] [place] Test Performed by [facility], [facility] [place] [address] [facility] Glucose [Mass/Vol] 162 mg/dL High 70 - 100 mg/dL [facility] [place] [place] Comment on above: Test performed by gl ucose meter. Results may be 10%-15% lower than serum/plasma values. (CLIA ID [id number]) Interpretation and review of laboratory results Abnormal [facility] Test Performed by [facility], [facility] [place] [address] [facility] Glucose [Mass/Vol] 214 mg/dL High 70 - 100 mg/dL [email or web address] [place], [place] Comment on above: Test performed by gl ucose meter. Results may be 10%-15% lower than serum/plasma values. (CLIA ID [id number]) Interpretation and review of laboratory results Abnormal [facility] [place] Test Performed by [facility], [address] [place] [address] [facility] Glucose [Mass/Vol] 196 mg/dL High 70 - 100 mg/dL [facility] [place] Comment on above: Test performed by gl ucose meter. Results may be 10%-15% lower than serum/plasma values. (CLIA ID [id number]) Interpretation and review of laboratory results Abnormal [facility] [place] Test Performed by [facility], [address] [place] [address] [facility] [place] Glucose [Mass/Vol] 135 mg/dL High 70 - 100 mg/dL [facility] [place] Comment on above: Test performed by gl ucose meter. Results may be 10%-15% lower than serum/plasma values. (CLIA ID [id number]) Interpretation and review of laboratory results Abnormal [facility] [place] Test Performed by [facility], [address] [place] [address] [facility] [place] Glucose [Mass/Vol] 121 mg/dL High 70 - 100 mg/dL [facility] [place] Comment on above: Test performed by gl ucose meter. Results may be 10%-15% lower than serum/plasma values. (CLIA ID [id number]) Interpretation and review of laboratory results Abnormal [facility] [place] Test Performed by [facility], [address] [place] [address] [facility] Glucose [Mass/Vol] 76 mg/dL 70 - 100 mg/dL [facility] [place] Comment on above: Test performed by gl ucose meter. Results may be 10%-15% lower than serum/plasma values. (CLIA ID [id number]) Test Performed by [facility], [address] [place] [address] [facility] Glucose [Mass/Vol] 76 mg/dL 70 - 100 mg/dL [facility] [place] Comment on above: Test performed by gl ucose meter. Results may be 10%-15% lower than serum/plasma values. (CLIA ID [id number]) Test Performed by [facility], [address] [place] [address] [facility] [place] Glucose [Mass/Vol] 90 mg/dL 70 - 100 mg/dL [facility] Comment on above: Test performed by gl ucose meter. Results may be 10%-15% lower than serum/plasma values. (CLIA ID [id number]) Test Performed by [facility], [address] [place] [address] [facility] [place] Glucose [Mass/Vol] 97 mg/dL 70 - 100 mg/dL [facility] [place] Comment on above: Test performed by gl ucose meter. Results may be 10%-15% lower than serum/plasma values. (CLIA ID [id number]) Test Performed by [facility], [address] [place] [address] [facility] Glucose [Mass/Vol] 123 mg/dL High 70 - 100 mg/dL [facility] [place] Comment on above: Test performed by gl ucose meter. Results may be 10%-15% lower than serum/plasma values. (CLIA ID [id number]) Interpretation and review of laboratory results Abnormal [facility] [place] Test Performed by [facility], [address] [place] [address] [facility] [place] Glucose [Mass/Vol] 133 mg/dL High 70 - 100 mg/dL [facility] [place] Comment on above: Test performed by gl ucose meter. Results may be 10%-15% lower than serum/plasma values. (CLIA ID [id number]) Interpretation and review of laboratory results Abnormal [facility] [place] Test Performed by [facility], [address] [place] [address] [facility] [place] Glucose [Mass/Vol] 115 mg/dL High 70 - 100 mg/dL [facility] [place] Comment on above: Test performed by gl ucose meter. Results may be 10%-15% lower than serum/plasma values. (CLIA ID [id number]) Interpretation and review of laboratory results Abnormal [facility] [place] Test Performed by [facility], [address] [place] [address] [facility] [place] Glucose [Mass/Vol] 135 mg/dL High 70 - 100 mg/dL [facility] [place] Comment on above: Test performed by gl ucose meter. Results may be 10%-15% lower than serum/plasma values. (CLIA ID [id number]) Interpretation and review of laboratory results Abnormal [facility] [place] Test Performed by [facility], [address] [place] [address] [facility] [place] Glucose [Mass/Vol] 134 mg/dL High 70 - 100 mg/dL [facility] [place] Comment on above: Test performed by gl ucose meter. Results may be 10%-15% lower than serum/plasma values. (CLIA ID [id number]) Interpretation and review of laboratory results Abnormal [facility] [place] Test Performed by [facility], [address] [place] [address] [facility] [place] Glucose [Mass/Vol] 143 mg/dL High 70 - 100 mg/dL [facility] [place] Comment on above: Test performed by gl ucose meter. Results may be 10%-15% lower than serum/plasma values. (CLIA ID [id number]) Interpretation and review of laboratory results Abnormal [facility] [place] Test Performed by [facility] [facility], [address] [place] [address] [facility] [place] Glucose [Mass/Vol] 110 mg/dL High 70 - 100 mg/dL [facility] [place] Comment on above: Test performed by gl ucose meter. Results may be 10%-15% lower than serum/plasma values. (CLIA ID [id number]) Interpretation and review of laboratory results Abnormal [facility] [place] Test Performed by [facility], [address] [place] [address] [facility] [place] Glucose [Mass/Vol] 104 mg/dL High 70 - 100 mg/dL [facility] [place] Comment on above: Test performed by gl ucose meter. Results may be 10%-15% lower than serum/plasma values. (CLIA ID [id number]) Interpretation and review of laboratory results Abnormal [facility] [place] Test Performed by [facility], [address] [place] [address] [facility] [place] Glucose [Mass/Vol] 82 mg/dL 70 - 100 mg/dL [facility] [place] Comment on above: Test performed by gl ucose meter. Results may be 10%-15% lower than serum/plasma values. (CLIA ID [id number]) Test Performed by [facility], [address] [place] [address] [facility] [place] Test Performed by [facility], [facility] [place] [address] [facility] Glucose [Mass/Vol] 110 mg/dL High 70 - 100 mg/dL [facility] [place], [place] Comment on above: Test performed by gl ucose meter. Results may be 10%-15% lower than serum/plasma values. (CLIA ID [id number]) Interpretation and review of laboratory results Abnormal [facility] [employer] [place] Test Performed by [facility], [facility] [place] [address] [facility], [place] Glucose [Mass/Vol] 122 mg/dL High 70 - 100 mg/dL [facility], [place] Comment on above: Test performed by gl ucose meter. Results may be 10%-15% lower than serum/plasma values. (CLIA ID [id number]) Interpretation and review of laboratory results Abnormal [facility] [place], [place] Test Performed by [facility], [facility] [place] [address] [facility], [place] Potassiumon 02-28-2019 Potassium [Moles/Vol] 6.7 mmol/L Critically high 3.5-5.1 [facility] Comment on above: Result Comment: Repe ated Performed By: #### B GLU #### [address] [place] [address] Interpretation and review of laboratory results Abnormal [facility], [place] Potassium [Moles/Vol] 6.7 mmol/L Critically high 3.5 - 5.1 mmol/L [place], [place] Comment on above: Repeated Test Performed by [facility], [address] [place] [address] [facility], [place] XR CHEST PORTABLEon 02-29-20 Patient Name: CHRISTY FRANCIS [facility]: [id number] ---Diagnostic Radiology--- Exam Date/Time 02/28/2019 07:24:40 EST Exam CR Chest Portable Ordering Physician GRANT TAYLOR Accession Number [id number] CPT4 Codes 96713 () Reason For Exam POST OPEN HEART Report CHEST - PORTABLE: CLINICAL INDICATION: Respiratory distress for follow up TECHNIQUE: Portable AP COMPARISON: One day ago FINDINGS: Life support devices: Right jugular venous sheath is noted. The Anderson-Jose catheter has been removed. Endotracheal tube and [...] No other consolidation. Report Dictated on Workstation: [employer] --- Final --- Dictated: 02/28/2019 6:53 am Dictating Physician: MD SOLORZANO JEFFREY Signed Date and Time: 02/28/2019 6:54 am Signed by: MD SOLORZANO JEFFREY Transcribed Date and Time: 02/28/2019 6:53 [facility], [place] Brian, [facility] Incoming Radiology Results From [facility] - 02/28/2019 7:25 AM EST Patient Name: CHRISTY FRANCIS ---Diagnostic Radiology--- Exam Date/Time 02/28/2019 07:24:40 EST Exam CR Chest Portable Ordering Physician GRANT TAYLOR Accession Number [id number] CPT4 Codes 86829 () Reason For Exam POST OPEN HEART Report CHEST - PORTABLE: CLINICAL INDICATION: Respiratory distress for follow up TECHNIQUE: Portable AP COMPARISON: One day ago FINDINGS: Life support devices: Right jugular venous sheath is noted. The Anderson-Jose catheter has been removed. Endotracheal tube and [...] No other consolidation. Report Dictated on Workstation: [id number] --- Final --- Dictated: 02/28/2019 6:53 am Dictating Physician: MD SOLORZANO JEFFREY Signed Date and Time: 02/28/2019 6:54 am Signed by: MD SOLORZANO JEFFREY Transcribed Date and Time: 02/28/2019 6:53 [facility] [place] Arterial Blood Gaseson 02-27 CO2 [Moles/Vol] 22.3 mmol/L Low 23.0-27.0 [facility] Comment on above: Performed By: #### H EMONicole CMP3M #### [facility] [address] [place], [place] HCO3 (Bld) [Moles/Vol] 20.8 mmol/L Low 21.0-25.0 S [facility] Comment on above: Performed By: #### H EMONicole CMP3M #### [facility] [address] [place], [place] Hemoglobin (Bld) [Mass/Vol] 10.4 g/dL Normal ScreenOnly [facility] Comment on above: Performed By: #### H EMONicole CMP3M #### [facility] [address] [place], [place] Oxygen (Bld) [Partial pressure] 270.6 mm[Hg] High 80.0-100.0 [facility] Comment on above: Performed By: #### H EMOG CMP3M #### [facility] [address] [place], [place] Oxygen saturation in Blood 98.8 % Normal 95.0-100.0 [facility] Comment on above: Performed By: #### H EMOG CMP3M #### [facility] [address] [place], [place] pCO2 46.0 mm[Hg] High 35.0-45.0 [facility] Comment on above: Performed By: #### H EMOG CMP3M #### [facility] [address] [place], [place] pH (Bld) 7.274 Low 7.350-7.450 [facility] Comment on above: Performed By: #### H MEGHNA AVILA3M #### [facility] [address] [place], [place] Std Base Excess -5.8 mmol/L Low -3.0-3.0 [facility] Comment on above: Performed By: #### H AUSTIN CMP3M #### [facility] [address] [place], [place] FIO2 100% Normal [facility] Comment on above: Performed By: #### H AUSTIN CMP3M #### [facility] [address] [place], [place] Basic Metabolic Panelon 11- Calcium [Mass/Vol] 9.7 mg/dL Normal 8.4-10.4 [facility] Comment on above: Performed By: #### B GLU #### [place] [address] [place], [place] Glucose [Mass/Vol] 164 mg/dL High 70-100 [facility] Comment on above: Performed By: #### B GLU #### [address] [place], [place] Anion gap [Moles/Vol] 13 Normal [facility] Comment on above: Performed By: #### B GLU #### [address] [place], [place] CO2 [Moles/Vol] 18 mmol/L Low 22-30 [facility] Comment on above: Performed By: #### B GLU #### [address] [place], [place] Creatinine [Mass/Vol] 1.13 mg/dL Normal 0.52-1.25 [facility] Comment on above: Performed By: #### B GLU #### [address] [place], [place] GFR/1.73 sq M predicted among blacks MDRD (S/P/Bld) [Vol rate/Area] 57.9 mL/min/{1.73_m2} Normal >60 [facility] Comment on above: Performed By: #### B GLU #### [address] [place], [place] GFR/1.73 sq M predicted among non-blacks MDRD (S/P/Bld) [Vol rate/Area] 47.7 mL/min/{1.73_m2} Normal >60 [facility] Comment on above: Result Comment: Sour ce- MDRD equation with creatinine calibration to IDMS(NKDEP) eGFR not recommended for drug dose adjustment Performed By: #### B GLU #### [address] [place], [place] Urea nitrogen [Mass/Vol] 24 mg/dL High 7-20 [facility] Comment on above: Performed By: #### B GLU #### [address] [place], [place] Chloride [Moles/Vol] 110 mmol/L High 98-107 [facility] Comment on above: Performed By: #### B GLU #### [address] [place], [place] Potassium [Moles/Vol] 4.0 mmol/L Normal 3.5-5.1 [facility] Comment on above: Performed By: #### B GLU #### [address] [place], [place] Sodium [Moles/Vol] 141 mmol/L Normal 135-145 [facility] Comment on above: Performed By: #### B GLU #### [address] [place], [place] Anion gap [Moles/Vol] 13 mmol/L [place], [place] Calcium [Mass/Vol] 9.7 mg/dL 8.4 - 10. 4 mg/dL [place], [place] Chloride [Moles/Vol] 110 mmol/L High 98 - 10 7 mmol/L [place], [place] CO2 [Moles/Vol] 18 mmol/L Low 22 - 30 mmol/L [place] Creatinine [Mass/Vol] 1.13 mg/dL 0.52 - 1.25 mg/dL [place], [place] EGFR IF NonAfrican [place] 47.7 mL/min >60 [place], [place] Comment on above: Source- MDRD equatio n with creatinine calibration to IDMS(NKDEP) eGFR not recommended for drug dose adjustment GFR/1.73 sq M predicted among blacks MDRD (S/P/Bld) [Vol rate/Area] 57.9 mL/min/{1.73_m2} >60 [place], [place] Glucose [Mass/Vol] 164 mg/dL High 70 - 100 mg/dL [facility], [place] Potassium [Moles/Vol] 4.0 mmol/L 3.5 - 5.1 mmol/L [facility], [place] Sodium [Moles/Vol] 141 mmol/L 135 - 145 mmol/L [place], [place] Urea nitrogen [Mass/Vol] 24 mg/dL High 7 - 20 mg/dL [place], [place] Calcium [Mass/Vol] 10.7 mg/dL High 8.4-10.4 [facility] Comment on above: Performed By: #### B GLU #### [address] [place], [place] Glucose [Mass/Vol] 160 mg/dL High 70-100 [facility] Comment on above: Performed By: #### B GLU #### [address] [place], [place] Urea nitrogen [Mass/Vol] 25 mg/dL High 7-20 [facility] Comment on above: Performed By: #### B GLU #### [address] [place], [place] Anion gap [Moles/Vol] 12 Normal [facility] Comment on above: Performed By: #### B GLU #### [address] [place], [place] CO2 [Moles/Vol] 19 mmol/L Low 22-30 [facility] Comment on above: Performed By: #### B GLU #### [address] [place], [place] Creatinine [Mass/Vol] 1.17 mg/dL Normal 0.52-1.25 [facility] Comment on above: Performed By: #### B GLU #### [address] [place], [place] GFR/1.73 sq M predicted among blacks MDRD (S/P/Bld) [Vol rate/Area] 55.6 mL/min/{1.73_m2} Normal >60 [facility] Comment on above: Performed By: #### B GLU #### [facility] [address] [place], [place] GFR/1.73 sq M predicted among non-blacks MDRD (S/P/Bld) [Vol rate/Area] 45.9 mL/min/{1.73_m2} Normal >60 [facility] Comment on above: Result Comment: Sour ce- MDRD equation with creatinine calibration to IDMS(NKDEP) eGFR not recommended for drug dose adjustment Performed By: #### B GLU #### [address] [place], [place] Chloride [Moles/Vol] 110 mmol/L High 98-107 [facility] Comment on above: Performed By: #### B GLU #### [address] [place], [place] Potassium [Moles/Vol] 4.2 mmol/L Normal 3.5-5.1 [facility] Comment on above: Performed By: #### B GLU #### [address] [place], [place] Sodium [Moles/Vol] 140 mmol/L Normal 135-145 [facility] Comment on above: Performed By: #### B GLU #### [address] [place], [place] Anion gap [Moles/Vol] 12 mmol/L [facility], [place] Calcium [Mass/Vol] 10.7 mg/dL High 8.4 - 10. 4 mg/dL [facility], [place] Chloride [Moles/Vol] 110 mmol/L High 98 - 10 7 mmol/L [facility] CO2 [Moles/Vol] 19 mmol/L Low 22 - 30 mmol/L [facility], [place] Creatinine [Mass/Vol] 1.17 mg/dL 0.52 - 1.25 mg/dL [place], [place] EGFR IF NonAfrican [place] 45.9 mL/min >60 [place], [place] Comment on above: Source- MDRD equatio n with creatinine calibration to IDMS(NKDEP) eGFR not recommended for drug dose adjustment GFR/1.73 sq M predicted among blacks MDRD (S/P/Bld) [Vol rate/Area] 55.6 mL/min/{1.73_m2} >60 [place] Glucose [Mass/Vol] 160 mg/dL High 70 - 100 mg/dL [place] Potassium [Moles/Vol] 4.2 mmol/L 3.5 - 5.1 mmol/L [place] Sodium [Moles/Vol] 140 mmol/L 135 - 145 mmol/L [place] Urea nitrogen [Mass/Vol] 25 mg/dL High 7 - 20 mg/dL [place] Calcium [Mass/Vol] 9.6 mg/dL Normal 8.4-10.4 [facility] Comment on above: Performed By: #### Papito AVILA CMP3M #### [facility] [address] [place], [place] Glucose [Mass/Vol] 233 mg/dL High 70-100 [facility] Comment on above: Performed By: #### Papito AVILA CMP3M #### [address] [place], [place] Urea nitrogen [Mass/Vol] 32 mg/dL High 7-20 [facility] Comment on above: Performed By: #### Papito AVILA CMP3M #### [facility] [address] [place], [place] Anion gap [Moles/Vol] 12 Normal [facility] Comment on above: Performed By: #### Papito AVILA CMP3M #### [facility] [address] [place], [place] CO2 [Moles/Vol] 24 mmol/L Normal 22-30 [facility] Comment on above: Performed By: #### Papito AVILA CMP3M #### [facility] [address] [place], [place] Creatinine [Mass/Vol] 1.05 mg/dL Normal 0.52-1.25 [facility] Comment on above: Performed By: #### Papito AVILA CMP3M #### [address] [place], [place] GFR/1.73 sq M predicted among blacks MDRD (S/P/Bld) [Vol rate/Area] mL/min/{1.73_m2} Normal >60 [facility] Comment on above: Performed By: #### Papito AVILA CMP3M #### [address] [place], [place] GFR/1.73 sq M predicted among non-blacks MDRD (S/P/Bld) [Vol rate/Area] 52.0 mL/min/{1.73_m2} Normal >60 [facility] Comment on above: Result Comment: Sour ce- MDRD equation with creatinine calibration to IDMS(NKDEP) eGFR not recommended for drug dose adjustment Performed By: #### Papito AVILA CMP3M #### [address] [place], [place] Chloride [Moles/Vol] 103 mmol/L Normal 98-107 [facility] Comment on above: Performed By: #### Papito AVILA CMP3M #### [address] [place], [place] Potassium [Moles/Vol] 4.7 mmol/L Normal 3.5-5.1 [facility] Comment on above: Performed By: #### Papito AVILA CMP3Adriana #### [address] [place], [place] Sodium [Moles/Vol] 138 mmol/L Normal 135-145 [facility] Comment on above: Performed By: #### Papito AVILA CMP3M #### [address] [place], [place] Basic Metabolic Panel w/ Ref oneil to MGon 02-27-2019 Anion gap [Moles/Vol] 12 mmol/L [facility], [place] Calcium [Mass/Vol] 9.6 mg/dL 8.4 - 10. 4 mg/dL [place], [place] Chloride [Moles/Vol] 103 mmol/L 98 - 10 7 mmol/L [place] CO2 [Moles/Vol] 24 mmol/L 22 - 30 mmol/L [place] Creatinine [Mass/Vol] 1.05 mg/dL 0.52 - 1.25 mg/dL [place], [place] EGFR IF NonAfrican [place] 52.0 mL/min >60 [place], [place] Comment on above: Source- MDRD equatio n with creatinine calibration to IDMS(NKDEP) eGFR not recommended for drug dose adjustment GFR/1.73 sq M predicted among blacks MDRD (S/P/Bld) [Vol rate/Area] mL/min/{1.73_m2} >60 mL/min [place], [place] Glucose [Mass/Vol] 233 mg/dL High 70 - 100 mg/dL [place] Interpretation and review of laboratory results Abnormal [place] Potassium [Moles/Vol] 4.7 mmol/L 3.5 - 5.1 mmol/L [place] Sodium [Moles/Vol] 138 mmol/L 135 - 145 mmol/L [place] Urea nitrogen [Mass/Vol] 32 mg/dL High 7 - 20 mg/dL [place] Test Performed by [address] [address] [place], [place] Blood Gas, Arterialon 2018 Base Excess, Arterial -5.8 mmol/L Low -3 - 3 mmol/L [place] HCO3, Arterial 20.8 mmol/L Low 21 - 25 mmol/L [place] Hemoglobin (Bld) [Mass/Vol] 10.4 g/dL ScreenOnly [place], [place] Oxygen saturation in Blood 98.8 % 95 - 100 % [place] pCO2, Arterial 46.0 mm[Hg] High 35 - 45 mm[Hg] [place], [place] pH, Arterial 7.274 Low [place] pO2, Arterial 270.6 mm[Hg] High 80 - 100 mm[Hg] [place] Sodium [Moles/Vol] 100% [place] TCO2, Arterial 22.3 mmol/L Low 23 - 27 mmol/L [place], [place] CBCon 02-27-2019 Erythrocyte distribution width (RBC) [Ratio] 13.0 % 11.5 - 14.5 % [place] Hematocrit (Bld) [Volume fraction] 34.0 % Low 35 - 47 % [place] Hemoglobin (Bld) [Mass/Vol] 11.2 g/dL Low 11.7 - 16 g/dL [place] Interpretation and review of laboratory results Abnormal [place] MCH (RBC) [Entitic mass] 30.3 pg 26 - 34 pg [place] MCHC (RBC) [Mass/Vol] 32.9 % 32 - 36 % [place], [place] MCV (RBC) [Entitic vol] 92.1 fL 79 - 98 fL [place], [place] Platelet mean volume (Bld) [Entitic vol] 9.9 fL 7.4 - 10.4 fL [place] Platelets (Bld) [#/Vol] 143 10*3/uL 140 - 440 10*3/uL [place] RBC (Bld) [#/Vol] 3.69 10*6/uL Low 3.8 - 5.2 10*6/uL [place] WBC (Bld) [#/Vol] 16.7 10*3/uL High 3.6 - 10.7 10*3/uL [place] Test Performed by [address] [address] [place] Erythrocyte distribution width (RBC) [Ratio] 12.9 % 11.5 - 14.5 % [place] Hematocrit (Bld) [Volume fraction] 29.0 % Low 35 - 47 % [place] Hemoglobin (Bld) [Mass/Vol] 9.8 g/dL Low 11.7 - 16 g/dL [place] Interpretation and review of laboratory results Abnormal [place] MCH (RBC) [Entitic mass] 31.1 pg 26 - 34 pg [place] MCHC (RBC) [Mass/Vol] 33.8 % 32 - 36 % [place] MCV (RBC) [Entitic vol] 91.9 fL 79 - 98 fL [place] Platelet mean volume (Bld) [Entitic vol] 9.7 fL 7.4 - 10.4 fL [place] Platelets (Bld) [#/Vol] 144 10*3/uL 140 - 440 10*3/uL [place] RBC (Bld) [#/Vol] 3.15 10*6/uL Low 3.8 - 5.2 10*6/uL [place] WBC (Bld) [#/Vol] 16.4 10*3/uL High 3.6 - 10.7 10*3/uL [place] Test Performed by [facility], [address] [place] [id number] [place] [address] CR Chest Portableon 02-28-20 19 CR Chest Portable Patient Name: CHRISTY FRANCIS Diagnostic Radiology Exam Date/Time 02/27/2019 16:56:34 EST Exam CR Chest Portable Ordering Physician GRANT TAYLOR Accession Number [id number] CPT4 Codes 41781 () Reason For Exam ETT placement Report CHEST PORTABLE: Indication: Inpatient; endotracheal tube placement Views: Portable frontal Comparison: 02/23/2019 Time: 16:42 on 02/27/2019 FINDINGS: Interval intubation with the endotracheal tube at the az, recommend repositioning and retraction. New right upper lung atelectasis/collapse. An enteric tube is in place with distal tip below the hemidiaphragm but excluded from [id number]. Interval placement of a right internal jugular Anderson-Jose catheter with tip overlying the right main [...] Transcribed Date and Time: 02/27/2019 5:56 Normal [facility] CULTURE STAPH AUREUSon 02-27 CULTURE STAPH AUREUS CULTURE STAPH AUREU S --> Status: F No Staphylococcus aureus isolated. Normal [facility] Comment on above: Order Comment: Speci men Source Comment:Nasal Performed By: #### H MEGHNA AVILA3M #### [address] [address] CULTURE, STAPH AUREUSon 02-17 CULTURE, STAPHYLOCOCCUS SCREEN No Staphylococcus aureus isolated. [place], [place] Test Performed by [facility], [address] [place] [id number] Specimen Source Comment:[facility]al [facility] [place] Calcium, Ionizedon 9 Ionized Ca 5.50 mg/dL High 4.3 - 5.2 mg/dL [place], [place] pH (Bld) 7.27 [pH] Low [place] Calcium,Ionizedon 02-27-2019 Ionized Ca,Measured 5.50 mg/dL High 4.30-5.20 [facility] Comment on above: Performed By: #### H MEGHNA AVILA3M #### [address] [address] pH, Ionized Calcium 7.27 Low 7.31-7.46 [facility] Comment on above: Performed By: #### H MEGHNA AVILA3M #### [address] [address] Echo 2D/3D DONNELL w/wo Contrast on 02-27-2019 Echo 2D/3D DONNELL w/wo Contrast Patient Name: CHRISTY FRANCIS Ultrasound Exam Date/Time 02/27/2019 13:12:30 EST Exam Echo 2D/3D DONNELL w/wo Contrast Ordering Physician CITLALY CARMONA ELLEN E Accession Number [id number] Reason For Exam Surgery Report TRANSESOPHAGEAL ECHOCARDIOGRAM Intraoperative-Pre Pump Only PATIENT: Christy Francis STUDY DATE: 02/27/2019 : 1950 AGE: 69 HT/WT: 154.9 cm (61 80 kg in) (176 lb) GENDER: F BP: 98 / 57 LOCATION: [facility] PATIENT Inpatient [facility] STATUS: *ORDERING PHYSICIAN: * Ronda Carmona *READING PHYSICIAN: * Michi Dewitt, *AUTOMATIC CORN GRINDER OPERATOR: Janice Austin MD [facility] INDICATIONS: CABG. CONCLUSIONS SUMMARY: 1. [...] 03/02/2019 8:47 am Signed by: MICHI DEWITT [facility] Glucose,Bedsideon 02-27-2019 Glucose [Mass/Vol] 180 mg/dL High 70-100 [facility] Comment on above: Result Comment: Test performed by glucose meter. Results may be 10%-15% lower than serum/plasma values. (CLIA ID [id number]) Performed By: #### B GLU #### [facility] [employer] [address] [place] [address] Glucose [Mass/Vol] 181 mg/dL High 70-100 [facility] Comment on above: Result Comment: Test performed by glucose meter. Results may be 10%-15% lower than serum/plasma values. (CLIA ID [id number]) Performed By: #### B GLU #### [facility] [employer] [facility] [address] [place] [address] Glucose [Mass/Vol] 179 mg/dL High 70-100 [facility] Comment on above: Result Comment: Test performed by glucose meter. Results may be 10%-15% lower than serum/plasma values. (CLIA ID [id number]) Performed By: #### B GLU #### [facility] [employer] [facility] [address] [place] [address] Glucose [Mass/Vol] 148 mg/dL High 70-100 [facility] Comment on above: Result Comment: Test performed by glucose meter. Results may be 10%-15% lower than serum/plasma values. (CLIA ID [id number]) Performed By: #### B GLU #### [facility] [employer] [place] [address] [place] [address] Glucose [Mass/Vol] 139 mg/dL High 70-[address] [place] [address] Comment on above: Result Comment: Test performed by glucose meter. Results may be 10%-15% lower than serum/plasma values. (CLIA ID [id number]) Performed By: #### B GLU #### [facility] [employer] [facility] [address] [place] [address] Glucose [Mass/Vol] 233 mg/dL High 70-100 [facility] Comment on above: Result Comment: Test performed by glucose meter. Results may be 10%-15% lower than serum/plasma values. (CLIA ID [id number]) Performed By: #### H MEGHNA AVILA3M #### [facility] [address] [place], [place] Glucose [Mass/Vol] 299 mg/dL High 70-100 [facility] Comment on above: Result Comment: Test performed by glucose meter. Results may be 10%-15% lower than serum/plasma values. (CLIA ID [id number]) Performed By: #### H MEGHNA AVILA3M #### [place] [place], [place] Hemogramon 02-27-2019 Erythrocyte distribution width (RBC) [Ratio] 13.0 % Normal 11.5-14.5 [facility] Comment on above: Performed By: #### B GLU #### [address] [address] [place], [place] Hematocrit (Bld) [Volume fraction] 34.0 % Low 35.0-47.0 [facility] Comment on above: Performed By: #### B GLU #### [place] [place], [place] Hemoglobin (Bld) [Mass/Vol] 11.2 g/dL Low 11.7-16.0 [facility] Comment on above: Performed By: #### B GLU #### [address] [place], [place] MCH (RBC) [Entitic mass] 30.3 pg Normal 26.0-34.0 [facility] Comment on above: Performed By: #### B GLU #### [address] [place], [place] MCHC (RBC) [Mass/Vol] 32.9 % Normal 32.0-36.0 [facility] Comment on above: Performed By: #### B GLU #### [address] MCV (RBC) [Entitic vol] 92.1 fL Normal 79.0-98.0 [facility] Comment on above: Performed By: #### B GLU #### [address] [place], [place] Platelet mean volume (Bld) [Entitic vol] 9.9 fL Normal 7.4-10.4 [facility] Comment on above: Performed By: #### B GLU #### [address] [place], [place] Platelets (Bld) [#/Vol] 143 10*3/uL Normal 140-440 [facility] Comment on above: Performed By: #### B GLU #### [address] [place], [place] RBC (Bld) [#/Vol] 3.69 10*6/uL Low 3.80-5.20 [facility] Comment on above: Performed By: #### B GLU #### [address] [place], [place] WBC (Bld) [#/Vol] 16.7 10*3/uL High 3.6-10.7 [facility] Comment on above: Performed By: #### B GLU #### [address] [place], [place] Erythrocyte distribution width (RBC) [Ratio] 12.9 % Normal 11.5-14.5 [facility] Comment on above: Performed By: #### H AUSTIN CMP3M #### [address] [place], [place] Hematocrit (Bld) [Volume fraction] 29.0 % Low 35.0-47.0 [facility] Comment on above: Performed By: #### H AUSTIN CMP3M #### [address] [place], [place] Hemoglobin (Bld) [Mass/Vol] 9.8 g/dL Low 11.7-16.0 [facility] Comment on above: Performed By: #### H AUSTIN CMP3M #### [address] [place], [place] MCH (RBC) [Entitic mass] 31.1 pg Normal 26.0-34.0 [facility] Comment on above: Performed By: #### H AUSTIN CMP3M #### [address] [place], [place] MCHC (RBC) [Mass/Vol] 33.8 % Normal 32.0-36.0 [facility] Comment on above: Performed By: #### Papito AVILA CMP3M #### [facility] [address] [place], [place] MCV (RBC) [Entitic vol] 91.9 fL Normal 79.0-98.0 [facility] Comment on above: Performed By: #### Papito AVILA CMP3M #### [address] [place], [place] Platelet mean volume (Bld) [Entitic vol] 9.7 fL Normal 7.4-10.4 [facility] Comment on above: Performed By: #### Papito AVILA CMP3M #### [address] [place], [place] Platelets (Bld) [#/Vol] 144 10*3/uL Normal 140-440 [facility] Comment on above: Performed By: #### Papito AVILA CMP3M #### [address] [place], [place] RBC (Bld) [#/Vol] 3.15 10*6/uL Low 3.80-5.20 [facility] Comment on above: Performed By: #### Papito AVILA CMP3M #### [address] [place], [place] WBC (Bld) [#/Vol] 16.4 10*3/uL High 3.6-10.7 [facility] Comment on above: Performed By: #### Papito AVILA CMP3M #### [address] [place], [place] Magnesiumon 02-27-2019 Magnesium [Mass/Vol] 2.4 mg/dL High 1.6-2.3 [facility] Comment on above: Performed By: #### B GLU #### [address] [place], [place] Magnesium [Mass/Vol] 2.4 mg/dL High 1.6 - 2 .3 mg/dL [facility] [place] Magnesium [Mass/Vol] 3.2 mg/dL High 1.6-2.3 [facility] Comment on above: Performed By: #### B GLU #### [facility] [address] [place] [address] Magnesium [Mass/Vol] 3.2 mg/dL High 1.6 - 2 .3 mg/dL [facility] [place] Otheron 02-27-2019 Interpretation and review of laboratory results Abnormal [facility] [place] Test Performed by [facility], [address] [place] [address] [facility] Interpretation and review of laboratory results Abnormal [facility] [place] Test Performed by [facility], [facility] [address] [place] [address] [facility] Interpretation and review of laboratory results Abnormal [facility] [place] Test Performed by [facility], [facility] [place] [address] [facility] POCT Glucoseon 02-27-2019 Glucose [Mass/Vol] 152 mg/dL High 70 - 100 mg/dL [facility] Comment on above: Test performed by gl ucose meter. Results may be 10%-15% lower than serum/plasma values. (CLIA ID [id number]) Interpretation and review of laboratory results Abnormal [facility] [place] Test Performed by [facility], [facility] [place] [address] [facility] Glucose [Mass/Vol] 156 mg/dL High 70 - 100 mg/dL [facility] Comment on above: Test performed by gl ucose meter. Results may be 10%-15% lower than serum/plasma values. (CLIA ID [id number]) Interpretation and review of laboratory results Abnormal [facility] [place] Test Performed by [facility], [address] [place] [address] [facility] Glucose [Mass/Vol] 180 mg/dL High 70 - 100 mg/dL [facility] Comment on above: Test performed by gl ucose meter. Results may be 10%-15% lower than serum/plasma values. (CLIA ID [id number]) Interpretation and review of laboratory results Abnormal [facility] [place] Test Performed by [facility], [address] [place] [address] [facility] [place] Glucose [Mass/Vol] 181 mg/dL High 70 - 100 mg/dL [facility] [place] Comment on above: Test performed by gl ucose meter. Results may be 10%-15% lower than serum/plasma values. (CLIA ID [id number]) Interpretation and review of laboratory results Abnormal [facility] [place] Test Performed by [employer] [facility], [address] [place] [address] [facility] [place] Glucose [Mass/Vol] 179 mg/dL High 70 - 100 mg/dL [facility] [place] Comment on above: Test performed by gl ucose meter. Results may be 10%-15% lower than serum/plasma values. (CLIA ID [id number]) Interpretation and review of laboratory results Abnormal [facility] [place] Test Performed by [employer] [facility], [address] [place] [address] [facility] [place] Glucose [Mass/Vol] 148 mg/dL High 70 - 100 mg/dL [facility] [place] Comment on above: Test performed by gl ucose meter. Results may be 10%-15% lower than serum/plasma values. (CLIA ID [id number]) Interpretation and review of laboratory results Abnormal [facility] [place] Test Performed by [employer] [facility], [address] [place] [address] [facility] [place] Glucose [Mass/Vol] 139 mg/dL High 70 - 100 mg/dL [facility] [place] Comment on above: Test performed by gl ucose meter. Results may be 10%-15% lower than serum/plasma values. (CLIA ID [id number]) Interpretation and review of laboratory results Abnormal [facility] [place] Test Performed by [facility], [address] [place] [address] [facility] [place] Glucose [Mass/Vol] 233 mg/dL High 70 - 100 mg/dL [facility] [place] Comment on above: Test performed by gl ucose meter. Results may be 10%-15% lower than serum/plasma values. (CLIA ID [id number]) Interpretation and review of laboratory results Abnormal [place], [place] Test Performed by [facility], [address] [place] [address] [place], [place] Glucose [Mass/Vol] 299 mg/dL High 70 - 100 mg/dL [place] Comment on above: Test performed by gl ucose meter. Results may be 10%-15% lower than serum/plasma values. (CLIA ID [id number]) Interpretation and review of laboratory results Abnormal [place] Test Performed by [facility], [address] [place] [id number] [place] [address] Phosphoruson 02-27-2019 Phosphate [Mass/Vol] 3.3 mg/dL Normal 2.5-4.[address] [facility] [employer] [facility] Comment on above: Performed By: #### B GLU #### [address] Phosphate [Mass/Vol] 3.3 mg/dL 2.5 - 4 .5 mg/dL [place], [place] Protime AND APTTon 9 INR Coag (PPP) [Relative time] 1.3 High 0.9-1.1 [facility] Comment on above: Result Comment: Gael [...] Performed By: #### H MEGHNA AVILA3M #### [facility] [employer] [address] [place] [address] PT Coag (PPP) [Time] 13.5 s High 9.0-12.[address] [facility] [employer] [facility] Comment on above: Result Comment: . Performed By: #### H MEGHNA AVILA3M #### [address] [address] aPTT Coag (Bld) [Time] 21.2 s Normal 20.0-30.5 [facility] Comment on above: Result Comment: NOTE : The therapeutic time for Heparin anticoagulation, based on Xa activity inhibition, is an APTT of 46-80 seconds. Performed By: #### H AUSTIN, CMP3M #### [address] [address] Protime/INR & PTTon 02-28-20 aPTT Coag (Bld) [Time] 21.2 s 20 - 30.5 s [place], [place] Comment on above: NOTE: The therapeuti c time for Heparin anticoagulation, based on Xa activity inhibition, is an APTT of 46-80 seconds. INR Coag (PPP) [Relative time] 1.3 {INR} High [place], [place] Comment on above: Recommended Anticoag ulant [...] Interpretation and review of laboratory results Abnormal [place], [place] PT Coag (PPP) [Time] 13.5 s High 9 - 12 s [place], [place] Comment on above: . Test Performed by [facility], [address] [place] [address] [place], [place] XR CHEST PORTABLEon 02-28-20 Patient Name: CHRISTY FRANCIS ---Diagnostic Radiology--- Exam Date/Time 02/27/2019 16:56:34 EST Exam CR Chest Portable Ordering Physician GRANT TAYLOR Accession Number [id number] CPT4 Codes 11191 () Reason For Exam ETT placement Report CHEST PORTABLE: Indication: Inpatient; endotracheal tube placement Views: Portable frontal Comparison: 02/23/2019 Time: 16:42 on 02/27/2019 FINDINGS: Interval intubation with the endotracheal tube at the az, recommend repositioning and retraction. New right upper lung atelectasis/collapse. An enteric tube is in place with distal tip below the hemidiaphragm but excluded from [id number]. Interval placement of a right internal jugular Anderson-Jose catheter with tip overlying the right main [...] R Transcribed Date and Time: 02/27/2019 5:56 [facility], [place] Brian, [facility] Incoming Radiology Results From [facility] - 02/27/2019 6:03 PM EST Patient Name: CHRISTY FRANCIS ---Diagnostic Radiology--- Exam Date/Time 02/27/2019 16:56:34 EST Exam CR Chest Portable Ordering Physician GRANT TAYLOR Accession Number [id number] CPT4 Codes 42486 () Reason For Exam ETT placement Report CHEST PORTABLE: Indication: Inpatient; endotracheal tube placement Views: Portable frontal Comparison: 02/23/2019 Time: 16:42 on 02/27/2019 FINDINGS: Interval intubation with the endotracheal tube at the az, recommend repositioning and retraction. New right upper lung atelectasis/collapse. An enteric tube is in place with distal tip below the hemidiaphragm but excluded from [id number]. Interval placement of a right internal jugular Anderson-Jose catheter with tip overlying the right main [...] R Transcribed Date and Time: 02/27/2019 5:56 [place], [place] Basic Metabolic Panelon - Calcium [Mass/Vol] 9.2 mg/dL Normal 8.4-10.4 [facility] Comment on above: Performed By: #### Papito AVILA CMP3M #### [facility] [address] [place], [place] Glucose [Mass/Vol] 317 mg/dL High 70-100 [facility] Comment on above: Performed By: #### Papito AVILA CMP3M #### [facility] [address] [place], [place] Anion gap [Moles/Vol] 10 Normal [facility] Comment on above: Performed By: #### Papito AVILA CMP3M #### [facility] [address] [place], [place] CO2 [Moles/Vol] 21 mmol/L Low 22-30 [facility] Comment on above: Performed By: #### Papito AVILA CMP3M #### [facility] [address] [place], [place] Creatinine [Mass/Vol] 1.14 mg/dL Normal 0.52-1.25 [facility] Comment on above: Performed By: #### Papito AVILA CMP3M #### [facility] [address] [place], [place] GFR/1.73 sq M predicted among blacks MDRD (S/P/Bld) [Vol rate/Area] 57.3 mL/min/{1.73_m2} Normal >60 [facility] Comment on above: Performed By: #### Papito AVILA CMP3M #### [address] [place], [place] GFR/1.73 sq M predicted among non-blacks MDRD (S/P/Bld) [Vol rate/Area] 47.2 mL/min/{1.73_m2} Normal >60 [facility] Comment on above: Result Comment: Sour ce- MDRD equation with creatinine calibration to IDMS(NKDEP) eGFR not recommended for drug dose adjustment Performed By: #### Papito AVILA CMP3M #### [address] [place], [place] Urea nitrogen [Mass/Vol] 30 mg/dL High 7-20 [facility] Comment on above: Performed By: #### Papito AVILA CMP3M #### [address] [place], [place] Chloride [Moles/Vol] 105 mmol/L Normal 98-107 [facility] Comment on above: Performed By: #### Papito AVILA CMP3M #### [address] [place], [place] Potassium [Moles/Vol] 5.1 mmol/L Normal 3.5-5.1 [facility] Comment on above: Performed By: #### Papito AVILA CMP3M #### [address] [place], [place] Sodium [Moles/Vol] 136 mmol/L Normal 135-145 [facility] Comment on above: Performed By: #### Papito AVILA CMP3Adriana #### [address] [place], [place] Basic Metabolic Panel w/ Ref oneil to MGon 02-26-2019 Anion gap [Moles/Vol] 10 mmol/L [facility], [place] Calcium [Mass/Vol] 9.2 mg/dL 8.4 - 10. 4 mg/dL [facility], [place] Chloride [Moles/Vol] 105 mmol/L 98 - 10 7 mmol/L [place] CO2 [Moles/Vol] 21 mmol/L Low 22 - 30 mmol/L [place] Creatinine [Mass/Vol] 1.14 mg/dL 0.52 - 1.25 mg/dL [place] EGFR IF NonAfrican [place] 47.2 mL/min >60 [place], [place] Comment on above: Source- MDRD equatio n with creatinine calibration to IDMS(NKDEP) eGFR not recommended for drug dose adjustment GFR/1.73 sq M predicted among blacks MDRD (S/P/Bld) [Vol rate/Area] 57.3 mL/min/{1.73_m2} >60 [place], [place] Glucose [Mass/Vol] 317 mg/dL High 70 - 100 mg/dL [place] Interpretation and review of laboratory results Abnormal [place], [place] Potassium [Moles/Vol] 5.1 mmol/L 3.5 - 5.1 mmol/L [place] Sodium [Moles/Vol] 136 mmol/L 135 - 145 mmol/L [place] Urea nitrogen [Mass/Vol] 30 mg/dL High 7 - 20 mg/dL [place] Test Performed by [facility], [address] [place] [address] [place], [place] CBCon 02-26-2019 Erythrocyte distribution width (RBC) [Ratio] 13.1 % 11.5 - 14.5 % [place] Hematocrit (Bld) [Volume fraction] 44.0 % 35 - 47 % [place] Hemoglobin (Bld) [Mass/Vol] 14.9 g/dL 11.7 - 16 g/dL [place] MCH (RBC) [Entitic mass] 30.6 pg 26 - 34 pg [place] MCHC (RBC) [Mass/Vol] 33.9 % 32 - 36 % [place], [place] MCV (RBC) [Entitic vol] 90.3 fL 79 - 98 fL [place], [place] Platelet mean volume (Bld) [Entitic vol] 9.9 fL 7.4 - 10.4 fL [place] Platelets (Bld) [#/Vol] 205 10*3/uL 140 - 440 10*3/uL [place] RBC (Bld) [#/Vol] 4.88 10*6/uL 3.8 - 5.2 10*6/uL [place] WBC (Bld) [#/Vol] 8.3 10*3/uL 3.6 - 10.7 10*3/uL [place] Test Performed by [facility], [address], [place] [id number] [place] [address] Complete Urinalysison 2018 Appearance (U) Clear Normal Clear [facility] Comment on above: Performed By: #### Papito AVILA CMP3M #### [address] Bacteria LM.HPF (Urine sed) [#/Area] Negative Normal Negative [facility] Comment on above: Performed By: #### Papito AVILA CMP3M #### [address] Bilirubin,Urine Negative Normal Negative [facility] Comment on above: Performed By: #### Papito AVILA CMP3M #### [address] Cast, Hyaline Negative Normal Negative [facility] Comment on above: Performed By: #### Papito AVILA CMP3M #### [address] Color (U) Light-Yellow Normal Lt. Yellow [facility] Comment on above: Performed By: #### Papito AVILA CMP3M #### [address] Glucose Ql (U) 300 mg/dL Normal Normal (<70) [facility] Comment on above: Performed By: #### H AUSTIN CMP3M #### [address] Ketone,Urine Negative Normal Negative [facility] Comment on above: Performed By: #### H AUSTIN CMP3M #### [facility] [address] [place], [place] Leukocytes,Urine 25 Michael/uL Normal Negative [facility] Comment on above: Performed By: #### H AUSTIN CMP3M #### [facility] [address] [place], [place] Mucous Threads Few Normal Negative [facility] Comment on above: Performed By: #### H AUSTIN CMP3M #### [address] [place], [place] Nitrites,Urine Negative Normal Negative [facility] Comment on above: Performed By: #### H AUSTIN CMP3M #### [address] [place], [place] Occult Blood,Urine 0.03 mg/dL Normal Negative [facility] Comment on above: Performed By: #### H AUSTIN CMP3M #### [address] [place], [place] pH (U) 5.0 Normal 5.0-8.0 [facility] Comment on above: Performed By: #### H AUSTIN CMP3M #### [address] [place], [place] Protein (U) [Mass/Vol] Negative Normal Negative [facility] Comment on above: Performed By: #### H AUSTIN CMP3M #### [address] [place], [place] RBC LM.HPF (Urine sed) [#/Area] 0 - 2 Normal 0-2 [facility] Comment on above: Performed By: #### H AUSTIN CMP3M #### [address] [place], [place] Specific Thayer,Urine 1.015 Normal 1.005-1.030 [facility] Comment on above: Performed By: #### H AUSTIN CMP3M #### [address] [address] [place], [place] Squamous Epithelial 0 - 2 Normal 3-5 [facility] Comment on above: Performed By: #### H EMOG CMP3M #### [facility] [employer] [address] [place] [address] Urobilinogen,Urine Normal Normal Normal (0-1) [facility] Comment on above: Performed By: #### H EMOG, CMP3M #### [facility] [employer] [facility] [address] [place] [address] WBC LM.HPF (Urine sed) [#/Area] 0 - 2 Normal 0-5 [facility] Comment on above: Performed By: #### H EMOG CMP3M #### [facility] [employer] [facility] [address] [place] [address] EKG 12 Leadon 02-26-2019 Brian, [facility] Incoming Cardiology Results From [employer] - 02/26/2019 9:23 AM EST [facility] Test Date: 2019-02-25 Pat Name: Christy Francis Department: 1A5 Room: [facility] Gender: F Cow Puncher: MARIE : 1950 Requested By: Order Number: [id number] Reading MD: Keith Ngo Measurements Intervals Musella Rate: 78 P: 52 AR: 150 QRS: -10 QRSD: 86 T: 122 QT: 386 QTc: 440 Interpretive Statements Sinus rhythm LAE, consider biatrial enlargement LVH with secondary repolarization abnormality Electronically Signed On 02-26-2019 9:22:41 EST by Keith Ngo [facility] [employer] [facility] Test Date: 2019-02-25 Pat Name: Christy Thomasan Department: 1A5 Room: [facility] Gender: F Cow Puncher: MARIE : 1950 Requested By: Order Number: [id number] Reading MD: Keith Ngo Measurements Intervals Musella Rate: 78 P: 52 AR: 150 QRS: -10 QRSD: 86 T: 122 QT: 386 QTc: 440 Interpretive Statements Sinus rhythm LAE, consider biatrial enlargement LVH with secondary repolarization abnormality Electronically Signed On 02-26-2019 9:22:41 EST by Keith Ngo [facility], [place] Glucose,Bedsideon 02-26-2019 Glucose [Mass/Vol] 257 mg/dL High 70-100 [facility] Comment on above: Result Comment: Test performed by glucose meter. Results may be 10%-15% lower than serum/plasma values. (CLIA ID [id number]) Performed By: #### H AUSTIN CMP3M #### [employer] [facility] [address] [place] [address] Glucose [Mass/Vol] 270 mg/dL High 70-100 [facility] Comment on above: Result Comment: Test performed by glucose meter. Results may be 10%-15% lower than serum/plasma values. (CLIA ID [id number]) Performed By: #### H AUSTIN CMP3M #### [employer] [facility] [address] [place], [place] Glucose [Mass/Vol] 245 mg/dL High 70-100 [facility] Comment on above: Result Comment: Test performed by glucose meter. Results may be 10%-15% lower than serum/plasma values. (CLIA ID [id number]) Performed By: #### H AUSTIN CMP3M #### [employer] [address] [place], [place] Glucose [Mass/Vol] 316 mg/dL High 70-100 [facility] Comment on above: Result Comment: Test performed by glucose meter. Results may be 10%-15% lower than serum/plasma values. (CLIA ID [id number]) Performed By: #### H AUSTIN CMP3M #### [facility] [employer] [facility] [address], [place] Hemogramon 02-26-2019 Erythrocyte distribution width (RBC) [Ratio] 13.1 % Normal 11.5-14.5 [facility] Comment on above: Performed By: #### B GLU #### [facility] [employer] [facility] [address] [place], [place] Hematocrit (Bld) [Volume fraction] 44.0 % Normal 35.0-47.0 [facility] Comment on above: Performed By: #### B GLU #### [facility] [employer] [address] [address] [place], [place] Hemoglobin (Bld) [Mass/Vol] 14.9 g/dL Normal 11.7-16.0 [facility] Comment on above: Performed By: #### B GLU #### [facility] [address] [place], [place] MCH (RBC) [Entitic mass] 30.6 pg Normal 26.0-34.0 [facility] Comment on above: Performed By: #### B GLU #### [facility] [address] [place], [place] MCHC (RBC) [Mass/Vol] 33.9 % Normal 32.0-36.0 [facility] Comment on above: Performed By: #### B GLU #### [facility] [address] [place], [place] MCV (RBC) [Entitic vol] 90.3 fL Normal 79.0-98.0 [facility] Comment on above: Performed By: #### B GLU #### [address] [place], [place] Platelet mean volume (Bld) [Entitic vol] 9.9 fL Normal 7.4-10.4 [facility] Comment on above: Performed By: #### B GLU #### [facility] [address] [place], [place] Platelets (Bld) [#/Vol] 205 10*3/uL Normal 140-440 [facility] Comment on above: Performed By: #### B GLU #### [facility] [address] [place], [place] RBC (Bld) [#/Vol] 4.88 10*6/uL Normal 3.80-5.20 [facility] Comment on above: Performed By: #### B GLU #### [facility] [address], [place] WBC (Bld) [#/Vol] 8.3 10*3/uL Normal 3.6-10.7 [facility] Comment on above: Performed By: #### B GLU #### [facility] [address], [place] POCT Glucoseon 02-26-2019 Glucose [Mass/Vol] 257 mg/dL High 70 - 100 mg/dL [facility] [place] Comment on above: Test performed by gl ucose meter. Results may be 10%-15% lower than serum/plasma values. (CLIA ID [id number]) Interpretation and review of laboratory results Abnormal [facility] [place] Test Performed by [employer] [facility], [address] [place] [address] [facility] [place] Glucose [Mass/Vol] 270 mg/dL High 70 - 100 mg/dL [facility] [place] Comment on above: Test performed by gl ucose meter. Results may be 10%-15% lower than serum/plasma values. (CLIA ID [id number]) Interpretation and review of laboratory results Abnormal [facility] [place] Test Performed by [employer] [facility], [address] [place] [address] [facility] Glucose [Mass/Vol] 245 mg/dL High 70 - 100 mg/dL [facility] Comment on above: Test performed by gl ucose meter. Results may be 10%-15% lower than serum/plasma values. (CLIA ID [id number]) Interpretation and review of laboratory results Abnormal [facility] Test Performed by triptap [facility], [address] [place] [place] [address] [facility] Glucose [Mass/Vol] 316 mg/dL High 70 - 100 mg/dL [facility] Comment on above: Test performed by gl ucose meter. Results may be 10%-15% lower than serum/plasma values. (CLIA ID [id number]) Interpretation and review of laboratory results Abnormal [facility] Test Performed by Zelaya triptap [facility], [address] [place] [address] [facility] [place] Prothrombin Timeon 11-10-201 9 INR Coag (PPP) [Relative time] 1.0 Normal 0.9-1.1 [facility] Comment on above: Result Comment: Gael [...] Performed By: #### Papito AVILA CMP3M #### [facility] [address] [place] [address] PT Coag (PPP) [Time] 10.9 s Normal 9.0-12.0 [facility] Comment on above: Result Comment: . Performed By: #### Papito AVILA CMP3M #### [place] [address] [place] [address] Protime-INRon 02-26-2019 INR Coag (PPP) [Relative time] 1.0 {INR} [place], [place] Comment on above: Recommended Anticoag ulant [...] [Time] 10.9 s 9 - 12 s [place], [place] Comment on above: . Test Performed by [facility], [address] [place] [id number] [place] [address] TS GELon 02-26-2019 TS GEL ABO Group: A Rh, Gel: POS Antibody Screen Gel: NEG Normal [facility] Comment on above: Performed By: #### H MEGHNA AVILA3M #### [place] [address] [place] [address] TYPE AND SCREENon 02-26-2019 Sodium [Moles/Vol] Positive [place], [place] Comment on above: Test Performed by [facility], [facility] [place] [address] Sodium [Moles/Vol] A [place], [place] Sodium [Moles/Vol] Negative [place] Comment on above: Test Performed by [facility], [facility] [place] [address] Test Performed by [facility], [address] [place] [address] [facility], [place] Urinalysison 02-26-2019 Appearance (U) Clear Clear NA [place], [place] Bacteria, UA Negative Negative /[HPF] [place] Bilirubin Urine Negative Negative mg/dL [place] Color (U) Light-Yellow Lt. Yellow NA [place], [place] Glucose, Ur 300 mg/dL Normal (<70) [place], [place] Hyaline Casts, UA Negative Negative /[LPF] [place], [place] Ketones Ql (U) Negative Negative mg/dL [place] LEUKOCYTES, UA 25 Negative Michael/uL [place], [place] Mucous Threads Few Negative /[LPF] [place] Nitrite, Urine Negative Negative NA [place] Occult Blood,Urine 0.03 mg/dL Negative [place] pH (U) 5.0 [pH] [place] Protein (U) [Mass/Vol] Negative Negat johnny mg/dL [place] RBC (U) [#/Vol] 0-2 0 - 2 /[HPF] [place], [place] Specific Thayer, Urine 1.015 [place], [place] Squam Epithel, UA 0-2 3 - 5 /[HPF] [place], [place] Urobilinogen, Urine Normal Normal ( 0-1) mg/dL [place] WBC, UA 0-2 0 - 5 /[HPF] [place] Test Performed by [facility], [address] [place] [address] [place], [place] VL ARTERIAL PVR LOWER WO EXE RCISEon 02-26-2019 [facility] Multilevel Lower Extremity Arterial Evaluation Report Ordering Physician: Timmy Basilio MD Hardwood Faller: Yamilet Cortes RVT Interpreting Physician: Charlie Solano MD Location: [facility] Indications: PVD. Conclusions 1. Left resting ISIDRO [...] supine position. Images were obtained using a Adeyoh 2100 vascular ultrasound machine. Arterial pressure indices: [...] signed by Charlie Solano MD 02/26/2019 09:13 [facility] Incoming Cardiology Results From Vera/Brooke - 02/26/2019 9:13 AM EST [facility] Multilevel Lower Extremity Arterial Evaluation Report Ordering Physician: Timmy Basilio MD Hardwood Faller: Yamilet Cortes RVT Interpreting Physician: Charlie Solano MD Location: [facility] Indications: PVD. Conclusions 1. Left resting ISIDRO [...] supine position. Images were obtained using a [employer] 2100 vascular ultrasound machine. Arterial pressure [...] signed by Charlie Solano MD 02/26/2019 09:13 [facility] VL DUP CAROTID BILATERALon 1 04-28-2018 [facility] Cardiology Results From Merge/Brooke - 02/26/2019 9:08 AM EST [facility] Carotid Duplex Report Ordering Physician: Minoo Encinas Hardwood Faller: Yamilet Cortes RVT Interpreting Physician: Charlie Solano MD Location: [facility] Indications: Carotid stenosis. Conclusions 1. Mild carotid [...] signed by Charlie Solano MD 02/26/2019 09:08 [facility]- [place], [facility] Carotid Duplex Report Ordering Physician: Minoo Encinas Hardwood Faller: Yamilet Cortes RVT Interpreting Physician: Charlie Solano MD Location: [facility] Indications: Carotid stenosis. Conclusions 1. Mild carotid [...] signed by Charlie Solano MD 02/26/2019 09:08 [facility] Pre Op Vein Mappingon [facility] Bilateral LE Vein Mapping For Bypass Report Ordering Physician: Minoo Encinas Hardwood Faller: Yamilet Cortes RVT Interpreting Physician: Charlie Solano MD Location: [facility] Indications: Pre-op bypass. Conclusions 1. The right great saphenous vein and left great saphenous veinappears patent. 2. Vein sizes as noted below. Study data: Bilateral lower extremity vein mapping. Grayscale 2D imaging. Location: Vascular laboratory. Procedure: A vascular evaluation was performed with the patient in the supine position. Images were obtained using a Ezetap E9 vascular ultrasound machine. Vein mapping: + [...] signed by Charlie Solano MD 02/26/2019 09:10 [facility], [facility] Incoming Cardiology Results From Vera/Epiphany - 02/26/2019 9:10 AM EST [facility] Bilateral LE Vein Mapping For Bypass Report Ordering Physician: Minoo Encinas Hardwood Faller: Yamilet Cortes RVT Interpreting Physician: Charlie Solano MD Location: [facility] Indications: Pre-op bypass. Conclusions 1. The right great saphenous vein and left great saphenous veinappears patent. 2. Vein sizes as noted below. Study data: Bilateral lower extremity vein mapping. Grayscale 2D imaging. Location: Vascular laboratory. Procedure: A vascular evaluation was performed with the patient in the supine position. Images were obtained using a Ezetap E9 vascular ultrasound machine. Vein mapping: + [...] signed by Charlie Solano MD 02/26/2019 09:10 [facility], [place] Complete Urinalysison 2018 Appearance (U) Clear Normal Clear [facility] Comment on above: Performed By: #### B GLU #### [facility] [address], [place] Bacteria LM.HPF (Urine sed) [#/Area] Few Normal Negative [facility] Comment on above: Performed By: #### B GLU #### [facility] [address], [place] Bilirubin,Urine Negative Normal Negative [facility] Comment on above: Performed By: #### B GLU #### [facility] [address], [place] Color (U) Colorless Normal Lt. Yellow [facility] Comment on above: Performed By: #### B GLU #### [place] [address] [place], [place] Glucose Ql (U) 300 mg/dL Normal Normal (<70) [facility] Comment on above: Performed By: #### B GLU #### [place] [place], [place] Ketone,Urine Negative Normal Negative [facility] Comment on above: Performed By: #### B GLU #### [place] [place], [place] Leukocytes,Urine 75 Michael/uL Normal Negative [facility] Comment on above: Performed By: #### B GLU #### [facility] [address], [place] Nitrites,Urine Negative Normal Negative [facility] Comment on above: Performed By: #### B GLU #### [place] [address] [place], [place] Occult Blood,Urine Negative Normal Negative [facility] Comment on above: Performed By: #### B GLU #### [place] [place], [place] pH (U) 5.0 Normal 5.0-8.0 [facility] Comment on above: Performed By: #### B GLU #### [facility] [address], [place] Protein (U) [Mass/Vol] Negative Normal Negative [facility] Comment on above: Performed By: #### B GLU #### [facility] [address] [facility], [place] Specific Thayer,Urine 1.009 Normal 1.005-1.030 S [facility] Comment on above: Performed By: #### B GLU #### [facility] [address] [facility], [place] Squamous Epithelial 0 - 2 Normal 3-5 [facility] Comment on above: Performed By: #### B GLU #### [facility] [address], [place] Urobilinogen,Urine Normal Normal Normal (0-1) [facility] Comment on above: Performed By: #### B GLU #### [facility] [address], [place] WBC LM.HPF (Urine sed) [#/Area] 6 - 10 Normal 0-5 [facility] Comment on above: Performed By: #### B GLU #### [facility] [address] [facility], [place] Glucose,Bedsideon 02-25-2019 Glucose [Mass/Vol] 280 mg/dL High 70-100 [facility] Comment on above: Result Comment: Test performed by glucose meter. Results may be 10%-15% lower than serum/plasma values. (CLIA ID [id number]) Performed By: #### B GLU #### [facility] [address] [place] [address] Glucose [Mass/Vol] 266 mg/dL High 70-100 [facility] Comment on above: Result Comment: Test performed by glucose meter. Results may be 10%-15% lower than serum/plasma values. (CLIA ID [id number]) Performed By: #### B GLU #### [facility] [address] [facility], [place] Glucose [Mass/Vol] 219 mg/dL High 70-100 [facility] Comment on above: Result Comment: Test performed by glucose meter. Results may be 10%-15% lower than serum/plasma values. (CLIA ID [id number]) Performed By: #### B GLU #### [facility] [address] [place] [address] Glucose [Mass/Vol] 338 mg/dL High 70-100 [facility] Comment on above: Result Comment: Test performed by glucose meter. Results may be 10%-15% lower than serum/plasma values. (CLIA ID [id number]) Performed By: #### B GLU #### [facility] [address] [place] [address] Glucose [Mass/Vol] 272 mg/dL High 70-100 [facility] Comment on above: Result Comment: Test performed by glucose meter. Results may be 10%-15% lower than serum/plasma values. (CLIA ID [id number]) Performed By: #### B GLU #### [facility] [address] [place] [address] Hemoglobin A1Con 02-25-2019 HbA1c (Bld) [Mass fraction] 249 mg/dL Normal [facility] Comment on above: Performed By: #### B GLU #### [facility] [address] [place] [address] HbA1c (Bld) [Mass fraction] 10.3 % High 4.0-5.7 [facility] Comment on above: Result Comment: --Hg bA1C levels may not be accurate in patients who have renal disease, received recent blood transfusions, are anemic, or who have dyshemoglobinemia. Performed By: #### B GLU #### [facility] [address] [place] [address] Hemoglobin A1con 02-25-2019 eAG 249 mg/dL [place], [place] HbA1c (Bld) [Mass fraction] 10.3 % High 4 - 5.7 % [place] Comment on above: --HgbA1C levels may not be accurate in patients who have renal disease, received recent blood transfusions, are anemic, or who have dyshemoglobinemia. Interpretation and review of laboratory results Abnormal [facility] Test Performed by [employer] [facility], [address] [place] [address] [facility] [place] POCT Glucoseon 02-25-2019 Glucose [Mass/Vol] 280 mg/dL High 70 - 100 mg/dL [facility] [place] Comment on above: Test performed by gl ucose meter. Results may be 10%-15% lower than serum/plasma values. (CLIA ID [id number]) Interpretation and review of laboratory results Abnormal [facility] [place] Test Performed by [employer] [facility], [address] [place] [address] [facility] [place] Glucose [Mass/Vol] 266 mg/dL High 70 - 100 mg/dL [facility] [place] Comment on above: Test performed by gl ucose meter. Results may be 10%-15% lower than serum/plasma values. (CLIA ID [id number]) Interpretation and review of laboratory results Abnormal [facility] Test Performed by [employer] [facility], [address] [place] [address] [facility] [place] Glucose [Mass/Vol] 219 mg/dL High 70 - 100 mg/dL [facility]- [place] Comment on above: Test performed by gl ucose meter. Results may be 10%-15% lower than serum/plasma values. (CLIA ID [id number]) Interpretation and review of laboratory results Abnormal [facility] Test Performed by [employer] [facility], [address] [place] [address] [facility] [place] Glucose [Mass/Vol] 338 mg/dL High 70 - 100 mg/dL [facility] Comment on above: Test performed by gl ucose meter. Results may be 10%-15% lower than serum/plasma values. (CLIA ID [id number]) Interpretation and review of laboratory results Abnormal [facility] Test Performed by [employer] [facility], [address] [place] [address] [facility] Urinalysison 02-25-2019 Appearance (U) Clear Clear NA [facility] [place] Bacteria, UA Few Negative /[HPF] [facility] [place] Bilirubin Urine Negative Negative mg/dL [place], [place] Color (U) Colorless Lt. Yellow NA [place], [place] Glucose, Ur 300 mg/dL Normal (<70) [place], [place] Ketones Ql (U) Negative Negative mg/dL [place] LEUKOCYTES, UA 75 Negative Michael/uL [place], [place] Nitrite, Urine Negative Negative NA [place], [place] Occult Blood,Urine Negative Negative mg/dL [place] pH (U) 5.0 [pH] [place], [place] Protein (U) [Mass/Vol] Negative Negat johnny mg/dL [place], [place] Specific Thayer, Urine 1.009 [place], [place] Squam Epithel, UA 0-2 3 - 5 /[HPF] [place], [place] Urobilinogen, Urine Normal Normal ( 0-1) mg/dL [place], [place] WBC, UA 6-10 0 - 5 /[HPF] [place] Test Performed by [facility], [address] [place] [address] [place], [place] VL Carotid Duplex Ultrasound Completeon 02-25-2019 VL Carotid Duplex Ultrasound Complete Patient Name: CHRISTY FRANCIS Ultrasound Exam Date/Time 02/25/2019 13:56:07 EST Exam VL Carotid Duplex Ultrasound Complete Ordering Physician RICHY ENCINAS, MINOO Rivera Accession Number [id number] CPT4 Codes 39562 () Reason For Exam preop CABG Report [facility] Carotid Duplex Report Ordering Physician: Minoo Encinas Hardwood Faller: Yamilet Cortes RVT Interpreting Physician: Charlie Solano MD Location: [facility] Indications: Carotid stenosis. Conclusions 1. Mild carotid [...] 02/26/2019 9:08 am Signed by: CHARLIE SOLANO [facility] VL PVR Arterial Doppler Lwr w/o Exerciseon 02-25-2019 VL PVR Arterial Doppler Lwr w/o Exercise Patient Name: CHRISTY FRANCIS Ultrasound Exam Date/Time 02/25/2019 13:56:47 EST Exam VL PVR Arterial Doppler Lwr w/o Exercise Ordering Physician MD BASILIO JUSTIN Accession Number [id number] CPT4 Codes 16262 () Reason For Exam PVD preop CABG Report [facility] Multilevel Lower Extremity Arterial Evaluation Report Ordering Physician: Timmy Basilio MD Hardwood Faller: Yamilet Cortes RVT Interpreting Physician: Charlie Solano MD Location: [facility] Indications: PVD. Conclusions 1. Left resting ISIDRO [...] supine position. Images were obtained using a Adeyoh 2100 vascular ultrasound machine. Arterial pressure indices: [...] 02/26/2019 9:13 am Signed by: CHARLIE SOLANO [facility] VL Vein Map for Preop Bypass [place] 02-25-2019 VL Vein Map for Preop Bypass Lower Ext Patient Name: CHRISTY FRANCIS Ultrasound Exam Date/Time 02/25/2019 13:56:27 EST Exam VL Vein Map for Preop Bypass Lower Ext Ordering Physician RICHY ENCINAS, MINOO Rivera Accession Number [id number] CPT4 Codes 81144 () Reason For Exam pre op CABG please ted legs Report [facility] Bilateral LE Vein Mapping For Bypass Report Ordering Physician: Minoo Encinas Hardwood Faller: Yamilet Cortes RVT Interpreting Physician: Charlie Solano MD Location: [facility] Indications: Pre-op bypass. Conclusions 1. The right great saphenous vein and left great saphenous veinappears patent. 2. Vein sizes as noted below. Study data: Bilateral lower extremity vein mapping. Grayscale 2D imaging. Location: Vascular laboratory. Procedure: A vascular evaluation was performed with the patient in the supine position. Images were obtained using a Ezetap E9 vascular ultrasound machine. Vein mapping: + [...] 02/26/2019 9:10 am Signed by: CHARLIE SOLANO [facility] Glucose,Bedsideon 02-24-2019 Glucose [Mass/Vol] 285 mg/dL High 70-100 [facility] Comment on above: Result Comment: Test performed by glucose meter. Results may be 10%-15% lower than serum/plasma values. (CLIA ID [id number]) Performed By: #### B GLU #### [facility] [address] [place] [address] Glucose [Mass/Vol] 290 mg/dL High 70-100 [facility] Comment on above: Result Comment: Test performed by glucose meter. Results may be 10%-15% lower than serum/plasma values. (CLIA ID [id number]) Performed By: #### B GLU #### [facility] [address] [place] [address] Glucose [Mass/Vol] 302 mg/dL High 70-100 [facility] Comment on above: Result Comment: Test performed by glucose meter. Results may be 10%-15% lower than serum/plasma values. (CLIA ID [id number]) Performed By: #### B GLU #### [facility] [address] [place] [address] POCT Glucoseon 02-24-2019 Glucose [Mass/Vol] 272 mg/dL High 70 - 100 mg/dL [place] Comment on above: Test performed by gl ucose meter. Results may be 10%-15% lower than serum/plasma values. (CLIA ID [id number]) Interpretation and review of laboratory results Abnormal [facility] [place] [place] Test Performed by triptap [facility], [facility] [place] [address] [place], [place] Glucose [Mass/Vol] 285 mg/dL High 70 - 100 mg/dL [place] Comment on above: Test performed by gl ucose meter. Results may be 10%-15% lower than serum/plasma values. (CLIA ID [id number]) Interpretation and review of laboratory results Abnormal [facility] [place] Test Performed by triptap [facility], [address] [place] [address] [facility] [place] Glucose [Mass/Vol] 290 mg/dL High 70 - 100 mg/dL [facility] [employer] Comment on above: Test performed by gl ucose meter. Results may be 10%-15% lower than serum/plasma values. (CLIA ID [id number]) Interpretation and review of laboratory results Abnormal [facility] [place], [place] Test Performed by [facility], [address] [place] [address] [place], [place] Glucose [Mass/Vol] 302 mg/dL High 70 - 100 mg/dL [facility], [place] Comment on above: Test performed by gl ucose meter. Results may be 10%-15% lower than serum/plasma values. (CLIA ID [id number]) Interpretation and review of laboratory results Abnormal [facility] [employer] Test Performed by [facility], [address] [place] [address] [facility] [employer] Bedside spirometryon [address] [place] [address] Incoming Cardiology Results From [facility]/Brooke - 02/28/2019 12:48 PM EST Name: CHRISTY FRANCIS PatientID: [id number] Gender: Female Birthdate: 1950 Study Date: 02/23/2019 3:15:42 P Age: 69 Race: Other Race Height: 62.0 in, 157.5 cm Weight: 176.0 lbs, 80.0 kg Smoke Status: Smokes Pack Years: 26.Tbco Prod: Cigarettes Ordering Physician: [id number] Interpreting Physician: [id number] Cow Puncher: Jennifer Testing Location: [facility] Diagnosis: CAD, HFrEF, pre-surgical values Spirometry Units Pred PreDrug Pre%Pred Post Post%Pred %Change FVC L,btps 2.79 1.80 64. FEV1 L,btps 2.11 1.33 63. FEV1/FVC (%) % 76. 74. 97. HEJ46-67% L/s 1.83 1.01 55. FEFmax L/s 5.42 [...] /MIP cmH2O -68.81 PEmax /MEP cmH2O 90.11 INDIRECT SALES EXEC NOTES Calibration check passed with acceptable system performance. Spirometry best effort, met acceptability and repeatability guidelines. Pt sitting upright in bedside chair with both feet on ground. [address]- WILBER Tests to perform: RT17 - BEDSIDE [...] Possible moderate restriction #2. Small airways obstruction [place], [place] Name: CHRISTY FRANCIS PatientID: [id number] Gender: Female Birthdate: 1950 Study Date: 02/23/2019 3:15:42 P Age: 69 Race: Other Race Height: 62.0 in, 157.5 cm Weight: 176.0 lbs, 80.0 kg Smoke Status: Smokes Pack Years: 26.Tbco Prod: Cigarettes Ordering Physician: [id number] Interpreting Physician: [id number] Cow Puncher: Jennifer Testing Location: [facility] Diagnosis: CAD, HFrEF, pre-surgical values Spirometry Units Pred PreDrug Pre%Pred Post Post%Pred %Change FVC L,btps 2.79 1.80 64. FEV1 L,btps 2.11 1.33 63. FEV1/FVC (%) % 76. 74. 97. [id number]% L/s 1.83 1.01 55. FEFmax L/s 5.42 [...] /MIP cmH2O -68.81 PEmax /MEP cmH2O 90.11 INDIRECT SALES EXEC NOTES Calibration check passed with acceptable system performance. Spirometry best effort, met acceptability and repeatability guidelines. Pt sitting upright in bedside chair with both feet on ground. [address]- WILBER Tests to perform: RT17 - BEDSIDE [...] Possible moderate restriction #2. Small airways obstruction [place], [place] CBCon 02-23-2019 Erythrocyte distribution width (RBC) [Ratio] 13.1 % 11.5 - 14.5 % [place] Hematocrit (Bld) [Volume fraction] 44.3 % 35 - 47 % [place] Hemoglobin (Bld) [Mass/Vol] 15.1 g/dL 11.7 - 16 g/dL [place] MCH (RBC) [Entitic mass] 30.8 pg 26 - 34 pg [place] MCHC (RBC) [Mass/Vol] 34.0 % 32 - 36 % [place], [place] MCV (RBC) [Entitic vol] 90.3 fL 79 - 98 fL [place], [place] Platelet mean volume (Bld) [Entitic vol] 9.4 fL 7.4 - 10.4 fL [place], [place] Platelets (Bld) [#/Vol] 212 10*3/uL 140 - 440 10*3/uL [place] RBC (Bld) [#/Vol] 4.90 10*6/uL 3.8 - 5.2 10*6/uL [place] WBC (Bld) [#/Vol] 8.6 10*3/uL 3.6 - 10.7 10*3/uL [place] Test Performed by [facility], [address] [place] [id number] [place] [address] CR Chest Portableon 02-24-20 19 CR Chest Portable Patient Name: CHRISTY FRANCIS Diagnostic Radiology Exam Date/Time 02/23/2019 17:30:22 EST Exam CR Chest Portable Ordering Physician RICHY ENCINAS, MINOO Rivera Accession Number [id number] CPT4 Codes 68536 () Reason For Exam preop CABG Report [...] Transcribed Date and Time: 02/23/2019 9:18 Normal [facility] [facility] Comp Panel with Mg Reflexon 02-23-2019 Calcium [Mass/Vol] 9.1 mg/dL Normal 8.4-10.4 [facility] Comment on above: Performed By: #### H AUSTIN CMP3M #### [facility] [address] [place], [place] ALP [Catalytic activity/Vol] 57 U/L Normal 38-126 [facility] Comment on above: Performed By: #### H AUSTIN CMP3M #### [facility] [address] [place], [place] ALT [Catalytic activity/Vol] 53 U/L Normal 13-69 [facility] Comment on above: Performed By: #### H AUSTIN CMP3M #### [facility] [address] [place], [place] Anion gap [Moles/Vol] 8 Normal [facility] Comment on above: Performed By: #### H AUSTIN CMP3M #### [facility] [address] [place], [place] AST [Catalytic activity/Vol] 49 U/L High 15-46 [facility] Comment on above: Performed By: #### Papito AVILA CMP3M #### [facility] [address] [place], [place] Bilirubin [Mass/Vol] 0.5 mg/dL Normal 0.2-1.3 [facility] Comment on above: Performed By: #### H AUSTIN CMP3M #### [facility] [address], [place] CO2 [Moles/Vol] 21 mmol/L Low 22-30 [facility] Comment on above: Performed By: #### H AUSTIN CMP3M #### [facility] [address] [place], [place] Glucose [Mass/Vol] 288 mg/dL High 70-100 [facility] Comment on above: Performed By: #### H AUSTIN CMP3M #### [facility] [address] [place], [place] Protein [Mass/Vol] 7.0 g/dL Normal 6.3-8.2 [facility] Comment on above: Performed By: #### H AUSTIN CMP3M #### [facility] [address] [place], [place] Urea nitrogen [Mass/Vol] 24 mg/dL High 7-20 [facility] Comment on above: Performed By: #### H AUSTIN CMP3M #### [place] [address] [place], [place] Creatinine [Mass/Vol] 1.03 mg/dL Normal 0.52-1.25 [facility] Comment on above: Performed By: #### Papito AVILA CMP3M #### [place] [address] [place], [place] GFR/1.73 sq M predicted among blacks MDRD (S/P/Bld) [Vol rate/Area] mL/min/{1.73_m2} Normal >60 [facility] Comment on above: Performed By: #### Papito AVILA CMP3M #### [facility] [address] [place], [place] GFR/1.73 sq M predicted among non-blacks MDRD (S/P/Bld) [Vol rate/Area] 53.1 mL/min/{1.73_m2} Normal >60 [facility] Comment on above: Result Comment: Sour ce- MDRD equation with creatinine calibration to IDMS(NKDEP) eGFR not recommended for drug dose adjustment Performed By: #### Papito AVILA CMP3M #### [facility] [address] [place], [place] Albumin [Mass/Vol] 3.9 g/dL Normal 3.5-5.0 [facility] Comment on above: Performed By: #### Papito AVILA CMP3M #### [facility] [address] [place], [place] Chloride [Moles/Vol] 106 mmol/L Normal 98-107 [facility] Comment on above: Performed By: #### H MEGHNA AVILA3M #### [facility] [address], [place] Potassium [Moles/Vol] 4.8 mmol/L Normal 3.5-5.1 [facility] Comment on above: Performed By: #### H AUSTIN CMP3M #### [facility] [address], [place] Sodium [Moles/Vol] 136 mmol/L Normal 135-145 [facility] Comment on above: Performed By: #### H MEGHNA AVILA3M #### [facility] [address], [place] Comprehensive Metabolic Pane l w/ Reflex to MGon 02-23-2019 Albumin [Mass/Vol] 3.9 g/dL 3.5 - 5 g/dL [place], [place] ALP [Catalytic activity/Vol] 57 U/L 38 - 126 U/L [place], [place] ALT [Catalytic activity/Vol] 53 U/L 13 - 69 U/L [place], [place] Anion gap [Moles/Vol] 8 mmol/L [place], [place] AST [Catalytic activity/Vol] 49 U/L High 15 - 46 U/L [place] Bilirubin Ql (U) 0.5 mg/dL 0.2 - 1.3 mg/dL [place] Calcium [Mass/Vol] 9.1 mg/dL 8.4 - 10. 4 mg/dL [place] Chloride [Moles/Vol] 106 mmol/L 98 - 10 7 mmol/L [place] CO2 [Moles/Vol] 21 mmol/L Low 22 - 30 mmol/L [place] Creatinine [Mass/Vol] 1.03 mg/dL 0.52 - 1.25 mg/dL [place], [place] EGFR IF NonAfrican [place] 53.1 mL/min >60 [place] Comment on above: Source- MDRD equatio n with creatinine calibration to IDMS(NKDEP) eGFR not recommended for drug dose adjustment GFR/1.73 sq M predicted among blacks MDRD (S/P/Bld) [Vol rate/Area] mL/min/{1.73_m2} >60 mL/min [place], [place] Glucose [Mass/Vol] 288 mg/dL High 70 - 100 mg/dL [place] Interpretation and review of laboratory results Abnormal [place] Potassium [Moles/Vol] 4.8 mmol/L 3.5 - 5.1 mmol/L [place] Protein [Mass/Vol] 7.0 g/dL 6.3 - 8.2 g/dL [place] Sodium [Moles/Vol] 136 mmol/L 135 - 145 mmol/L [place] Urea nitrogen [Mass/Vol] 24 mg/dL High 7 - 20 mg/dL [place] Test Performed by [facility], [address] [place] [address] [place], [place] Glucose,Bedsideon 02-23-2019 Glucose [Mass/Vol] 296 mg/dL High 70-100 [place] Comment on above: Test performed by gl ucose meter. Results may be 10%-15% lower than serum/plasma values. (CLIA ID [id number]) Result Comment: Test performed by glucose meter. Results may be 10%-15% lower than serum/plasma values. (CLIA ID [id number]) Performed By: #### B GLU #### [place] [address] [place] [address] Glucose [Mass/Vol] 328 mg/dL High 70-100 [facility] Comment on above: Result Comment: Test performed by glucose meter. Results may be 10%-15% lower than serum/plasma values. (CLIA ID [id number]) Performed By: #### B GLU #### [facility] [address] [place] [address] Glucose [Mass/Vol] 348 mg/dL High 70-100 [facility] Comment on above: Result Comment: Test performed by glucose meter. Results may be 10%-15% lower than serum/plasma values. (CLIA ID [id number]) Performed By: #### B GLU #### [place] [address] [place], [place] Glucose [Mass/Vol] 315 mg/dL High 70-100 [facility] Comment on above: Result Comment: Test performed by glucose meter. Results may be 10%-15% lower than serum/plasma values. (CLIA ID [id number]) Performed By: #### B GLU #### [place] [address] [place], [place] Hemogramon 02-23-2019 Erythrocyte distribution width (RBC) [Ratio] 13.1 % Normal 11.5-14.5 [facility] Comment on above: Performed By: #### Papito AVILA CMP3M #### [place] [address] [place], [place] Hematocrit (Bld) [Volume fraction] 44.3 % Normal 35.0-47.0 [facility] Comment on above: Performed By: #### Papito AVILA CMP3M #### [place] [address] [place], [place] Hemoglobin (Bld) [Mass/Vol] 15.1 g/dL Normal 11.7-16.0 [facility] Comment on above: Performed By: #### Papito AVILA CMP3M #### [place] [address] [place], [place] MCH (RBC) [Entitic mass] 30.8 pg Normal 26.0-34.0 [facility] Comment on above: Performed By: #### Papito AVILA CMP3M #### [place] [address] [place], [place] MCHC (RBC) [Mass/Vol] 34.0 % Normal 32.0-36.0 [facility] Comment on above: Performed By: #### Papito AVILA CMP3M #### [address] [place], [place] MCV (RBC) [Entitic vol] 90.3 fL Normal 79.0-98.0 [facility] Comment on above: Performed By: #### Papito AVILA CMP3M #### [facility] [address] [place] [address] Platelet mean volume (Bld) [Entitic vol] 9.4 fL Normal 7.4-10.4 [facility] Comment on above: Performed By: #### H EMOG, CMP3M #### [facility] [address] [place] [address] Platelets (Bld) [#/Vol] 212 10*3/uL Normal 140-440 [facility] Comment on above: Performed By: #### H EMOG, CMP3M #### [facility] [address] [place] [address] RBC (Bld) [#/Vol] 4.90 10*6/uL Normal 3.80-5.20 [facility] Comment on above: Performed By: #### H EMOG CMP3M #### [facility] [address] [place] [address] WBC (Bld) [#/Vol] 8.6 10*3/uL Normal 3.6-10.7 [facility] Comment on above: Performed By: #### H EMOG CMP3M #### [facility] [address] [place] [address] POCT Glucoseon 02-23-2019 Interpretation and review of laboratory results Abnormal [facility] [place] [place] Test Performed by [facility], [facility] [place] [address] [place], [place] Glucose [Mass/Vol] 328 mg/dL High 70 - 100 mg/dL [place] Comment on above: Test performed by gl ucose meter. Results may be 10%-15% lower than serum/plasma values. (CLIA ID [id number]) Interpretation and review of laboratory results Abnormal [facility], [place] Test Performed by [facility], [facility] [place] [address] [facility], [place] Glucose [Mass/Vol] 348 mg/dL High 70 - 100 mg/dL [place], [place] Comment on above: Test performed by gl ucose meter. Results may be 10%-15% lower than serum/plasma values. (CLIA ID [id number]) Interpretation and review of laboratory results Abnormal [facility] [employer] [place] Test Performed by [facility], [address] [place] [facility] [address] [facility] Glucose [Mass/Vol] 315 mg/dL High 70 - 100 mg/dL [facility] [employer] [place] Comment on above: Test performed by gl ucose meter. Results may be 10%-15% lower than serum/plasma values. (CLIA ID [id number]) Interpretation and review of laboratory results Abnormal [facility] [employer] Test Performed by [facility], [address] [place] [address] [facility] [place] [facility] CHEST PORTABLEon 02-24-20 Patient Name: CHRISTY FRANCIS ---Diagnostic Radiology--- Exam Date/Time 02/23/2019 17:30:22 EST Exam CR Chest Portable Ordering Physician RICHY ENCINAS, MINOO Rivera Accession Number [id number] CPT4 Codes 00412 () Reason For Exam preop CABG Report [...] ALFRED Transcribed Date and Time: 02/23/2019 9:18 [facility] [place] [employer] Kathie Torres [facility] 02/23/2019 9:20 PM EST Patient Name: CHRISTY FRANCIS ---Diagnostic Radiology--- Exam Date/Time 02/23/2019 17:30:22 EST Exam CR Chest Portable Ordering Physician RICHY ENCINAS, MINOO Rivera Accession Number [id number] CPT4 Codes 72674 () Reason For Exam preop CABG Report [...] ALFRED Transcribed Date and Time: 02/23/2019 9:18 [place], [place] Glucose,Bedsideon 02-22-2019 Glucose [Mass/Vol] 283 mg/dL High 70-100 [facility] Comment on above: Result Comment: Test performed by glucose meter. Results may be 10%-15% lower than serum/plasma values. (CLIA ID [id number]) Performed By: #### B GLU #### [address] [address] Glucose [Mass/Vol] 200 mg/dL High 70-100 [facility] Comment on above: Result Comment: Test performed by glucose meter. Results may be 10%-15% lower than serum/plasma values. (CLIA ID [id number]) Performed By: #### B GLU #### [place] [address] [place] [address] POCT Glucoseon 02-22-2019 Glucose [Mass/Vol] 283 mg/dL High 70 - 100 mg/dL [place] Comment on above: Test performed by gl ucose meter. Results may be 10%-15% lower than serum/plasma values. (CLIA ID [id number]) Interpretation and review of laboratory results Abnormal [place], [place] Test Performed by [facility], [address] [place] [address] [place], [place] Glucose [Mass/Vol] 200 mg/dL High 70 - 100 mg/dL [place] Comment on above: Test performed by gl ucose meter. Results may be 10%-15% lower than serum/plasma values. (CLIA ID [id number]) Interpretation and review of laboratory results Abnormal [place], [place] Test Performed by [facility], [address] [place] [address] [place], [place] Vital Signs Date Time Vital Sign Value Performing Clinician Facility 01-18-2025 09:28-0400 Body height 157.[address] Marielos Perla DO Work Phone[facility] 01-18-2025 09:28-0400 Body mass index (BMI) [Ratio] 29.9 kg/m2 Dr. Marielos Perla DO Work Phone: [facility] 01-18-2025 09:28-0400 Body weight 74.[address] Marielos Perla DO Work Phone: [facility] 01-10-2025 10:46-0400 Body height 157.[address] Marielos Perla DO Work Phone: [facility] 01-10-2025 10:46-0400 Body mass index (BMI) [Ratio] 30.5 kg/m2 Dr. Marielos Perla DO Work Phone: [facility] 01-10-2025 10:46-0400 Body weight 75.[address] Marielos Perla DO Work Phone: [facility] 01-10-2025 10:46-0400 Diastolic blood pressure 74 mm[Hg] Dr. Marielos Perla DO Work Phone: [facility] 01-10-2025 10:46-0400 Heart rate 98 /min Dr. Marielos Perla DO Work Phone: [facility] 01-10-2025 10:46-0400 Systolic blood pressure 125 mm[Hg] Dr. Marielos Perla DO Work Phone: [facility] 01-08-2025 16:00-0400 Diastolic blood pressure 105 mm[Hg] Dr. Marielos Perla DO Work Phone: [facility] 01-08-2025 16:00-0400 Heart rate 89 /min Dr. Marielos Perla DO Work Phone: [facility] 01-08-2025 16:00-0400 Respiratory rate 14 /min Dr. Marielos Perla DO Work Phone: [facility] 01-08-2025 16:00-0400 SaO2% (BldA) [Mass fraction] 92 % Dr. Marielos Perla DO Work Phone: [facility] 01-08-2025 16:00-0400 Systolic blood pressure 122 mm[Hg] Dr. Marielos Perla DO Work Phone: [facility] 01-08-2025 07:45-0400 Body temperature 97.4 [degF] Dr. Mraielos Perla DO Work Phone: [facility] 01-07-2025 16:04-0400 Body mass index (BMI) [Ratio] 30.2 kg/m2 Dr. Marielos Perla DO Work Phone: [facility] 01-07-2025 16:04-0400 Body weight 75.[address] Marielos Perla DO Work Phone: [facility] 01-03-2025 09:30-0400 Body temperature 97.7 [degF] Dr. Marielos Perla DO Work Phone: [facility] 01-03-2025 09:30-0400 Body weight 74.[address] Marielos Perla DO Work Phone: [facility] 01-03-2025 09:30-0400 Diastolic blood pressure 64 mm[Hg] Dr. Marielos Perla DO Work Phone: [facility] 01-03-2025 09:30-0400 Heart rate 106 /min Dr. Marielos Perla DO Work Phone: [facility] 01-03-2025 09:30-0400 Respiratory rate 16 /min Dr. Marielos Perla DO Work Phone: [facility] 01-03-2025 09:30-0400 SaO2% (BldA) [Mass fraction] 97 % Dr. Marielos Perla DO Work Phone: [facility] 01-03-2025 09:30-0400 Systolic blood pressure 108 mm[Hg] Dr. Marielos Perla DO Work Phone: [facility] 12-12-2024 10:53-0400 Body temperature 97.7 [degF] Dr. Marielos Perla DO Work Phone: [facility] 12-12-2024 10:53-0400 Body weight 76.[address] Marielos Perla DO Work Phone: [facility] 12-12-2024 10:53-0400 Diastolic blood pressure 78 mm[Hg] Dr. Marielos Perla DO Work Phone: [facility] 12-12-2024 10:53-0400 Heart rate 112 /min Dr. Marielos Perla DO Work Phone: [facility] 12-12-2024 10:53-0400 Respiratory rate 18 /min Dr. Marielos Perla DO Work Phone: [facility] 12-12-2024 10:53-0400 SaO2% (BldA) [Mass fraction] 98 % Dr. Marielos Perla DO Work Phone: [facility] 12-12-2024 10:53-0400 Systolic blood pressure 126 mm[Hg] Dr. Marielos Perla DO Work Phone: [facility] 11-02-2024 10:17-0400 Body height 157.[address] Marielos Perla DO Work Phone: [facility] 11-02-2024 10:17-0400 Body mass index (BMI) [Ratio] 30.5 kg/m2 Dr. Marielos Perla DO Work Phone: [facility] 11-02-2024 10:17-0400 Body weight 75.[address] Marielos Perla DO Work Phone: [facility] 11-02-2024 10:17-0400 Diastolic blood pressure 65 mm[Hg] Dr. Marielos Perla DO Work Phone: [facility] 11-02-2024 10:17-0400 Respiratory rate 18 /min Dr. Marielos Perla DO Work Phone: [facility] 11-02-2024 10:17-0400 Systolic blood pressure 112 mm[Hg] Dr. Marielos Perla DO Work Phone: [facility] 06-05-2024 10:52-0500 Body height 157.[address] Marielos Perla DO Work Phone: [facility] 06-05-2024 10:52-0500 Body mass index (BMI) [Ratio] 34.2 kg/m2 Dr. Marielos Perla DO Work Phone: [facility] 06-05-2024 10:52-0500 Body weight 84.[address] Marielos Perla DO Work Phone: [facility] 06-05-2024 10:52-0500 Diastolic blood pressure 73 mm[Hg] Dr. Marielos Perla DO Work Phone: [facility] 06-05-2024 10:52-0500 Heart rate 98 /min Dr. Marielos Perla DO Work Phone: [facility] 06-05-2024 10:52-0500 Respiratory rate 18 /min Dr. Marielos Perla DO Work Phone: [facility] 06-05-2024 10:52-0500 Systolic blood pressure 119 mm[Hg] Dr. Marielos Perla DO Work Phone: [facility] 11-18-2022 13:38-0400 Body height 157.[address] Marielos Perla Work Phone: [facility] 11-18-2022 13:38-0400 Body mass index (BMI) [Ratio] 35.8 kg/m2 Dr. Marielos Perla Work Phone: [facility] 11-18-2022 13:38-0400 Body weight 88.[address] Marielos Perla Work Phone: [facility] 11-18-2022 13:38-0400 Diastolic blood pressure 80 mm[Hg] Dr. Marielos Perla Work Phone: [facility] 11-18-2022 13:38-0400 Heart rate 93 /min Dr. Marielos Perla Work Phone: [facility] 11-18-2022 13:38-0400 Respiratory rate 18 /min Dr. Marielos Perla Work Phone: [facility] 11-18-2022 13:38-0400 SaO2% (BldA) [Mass fraction] 95 % Dr. Marielos Perla Work Phone: [facility] 11-18-2022 13:38-0400 Systolic blood pressure 146 mm[Hg] Dr. Marielos Perla Work Phone: [facility] 08-20-2022 09:54-0400 Body height 157.[address] Marielos Perla Work Phone: [facility] 08-20-2022 09:54-0400 Body mass index (BMI) [Ratio] 35.3 kg/m2 Dr. Marielos Perla Work Phone: [facility] 08-20-2022 09:54-0400 Body weight 87.[address] Marielos Perla Work Phone: [facility] 08-20-2022 09:54-0400 Diastolic blood pressure 79 mm[Hg] Dr. Marielos Perla Work Phone: [facility] 08-20-2022 09:54-0400 Heart rate 76 /min Dr. Marielos Perla Work Phone: [facility] 08-20-2022 09:54-0400 Respiratory rate 18 /min Dr. Marielos Perla Work Phone: [facility] 08-20-2022 09:54-0400 Systolic blood pressure 139 mm[Hg] Dr. Marielos Perla Work Phone: [facility] 03-29-2022 18:34-0500 Body temperature 98.3 [degF] [facility] 03-29-2022 18:34-0500 Diastolic blood pressure 85 mm[Hg] [facility] 03-29-2022 18:34-0500 Heart rate 74 /min [facility] 03-29-2022 18:34-0500 Respiratory rate 18 /min [facility] 03-29-2022 18:34-0500 SaO2% (BldA) [Mass fraction] 99 % [facility] 03-29-2022 18:34-0500 Systolic blood pressure 125 mm[Hg] [facility] 03-29-2022 17:27-0500 Body height 157.48 cm [facility] 03-29-2022 17:27-0500 Body mass index (BMI) [Ratio] 33.8 kg/m2 [facility] 03-29-2022 17:27-0500 Body weight 83.91 kg [facility] 03-03-2019 15:30-0500 BP Diastolic 55 mm[Hg] [place], [place] 03-03-2019 15:30-0500 BP Systolic 124 mm[Hg] [place], [place] 03-03-2019 15:30-0500 Pulse (Heart Rate) 83 /min [place], [place] 03-03-2019 15:30-0500 Pulse Oximetry 96 % [place], [place] 03-03-2019 15:30-0500 Respiratory Rate 18 /min [facility] [place] 03-03-2019 11:51-0500 Body Temperature 97.81 [degF] Mil Ashley [facility], [place] 03-03-2019 00:00-0500 BMI (Body Mass Index) 34.14 kg/m2 Mil Ashley [facility], [place] 03-03-2019 00:00-0500 Body weight 81.97 kg [facility] [place] 02-28-2019 12:00-0500 Height 154.[address] [facility] , [place] Encounters Encounter Date Encounter Type Care Provider Facility Start: 02-13-2025 ambulatory [facility] Facility [facility] Start: 01-29-2025 ambulatory [facility] Start: 01-22-2025 ambulatory [place] [facility] Start: 01-18-2025 End: 01-18-2025 Patient encounter procedure Lidia HOLLAND -[facility] Work Phone: Start: 01-18-2025 End: 01-18-[address] Marielos Perla DO Work Phone: -[facility] Start: 01-10-2025 End: 01-10-[address] Marielos Perla DO Work Phone: -[facility] Start: 01-10-2025 End: 01-10-2025 Patient encounter procedure Lamar Olivera FRAMER-C -[facility] Work Phone: Start: 01-10-2025 End: 01-10-2025 Patient encounter procedure Lamar Olivera FRAMER-C -[facility] Work Phone: Start: 01-10-2025 End: 01-10-[address] Marielos Perla DO Work Phone: [facility] Start: 01-10-2025 End: 01-10-2025 ambulatory [facility] Facility[facility] Start: 01-08-2025 Non-patient / Non-visit Dr. Rupali Lott DO -[facility] Work Phone: Start: 01-08-2025 Non-patient / Non-visit Dr. Fred ROMERO -[facility] Start: 01-07-2025 End: 01-08-2025 ambulatory Rupali Lott Facility:[facility] Start: 01-07-2025 End: 01-08-2025 Evaluation and management of inpatient Dr. Rupali Lott DO -[facility] Work Phone: Start: 01-07-2025 End: 01-08-[address] Marielos Perla DO Work Phone: -[facility] Start: 01-03-2025 End: 01-03-2025 Patient encounter procedure Ava Yuong MA -[facility] Work Phone: Start: 01-03-2025 End: 01-03-[address] Marielos Perla DO Work Phone: -[facility] Start: 12-22-2024 Non-patient / Non-visit Dr. Grant coburn MD -[facility] Start: 12-22-2024 End: 12-22-[address] Marielos Perla DO Work Phone: -Cardiovascular Services Start: 12-22-2024 End: 12-22-2024 Patient encounter procedure Ava HOLLAND -[facility] Work Phone: Start: 12-22-2024 End: 12-22-2024 ambulatory Ava Young [facility] Start: 12-12-2024 End: 12-12-2024 Patient encounter procedure Ava [facility] Work Phone: Start: 12-12-2024 End: 12-12-[address] Marielso Perla DO Work Phone: -[facility] Start: 12-06-2024 End: 12-06-[address] Marielos Perla DO Work Phone: -[facility] Start: 12-06-2024 End: 12-06-2024 Patient encounter procedure Jennifer Bailey PA -[facility] Work Phone: Start: 12-06-2024 End: 12-06-2024 ambulatory Jennifer Bailey [facility] Start: 11-29-2024 End: 11-29-[address] Marielos Perla DO Work Phone: -[facility] Start: 11-29-2024 End: 11-29-[address] Marielos Perla DO -[facility] Work Phone: Start: 11-29-2024 End: 11-29-2024 ambulatory Marielos Perla Facility:[facility] Start: 11-02-2024 End: 11-02-2024 Patient encounter procedure Jennifer Bailey PA -[facility] Work Phone: Start: 11-02-2024 End: 11-02-[address] Marielos Perla DO Work Phone: -[facility] Start: 11-02-2024 End: 11-02-2024 ambulatory Jennifer Bailey [facility] Start: 09-18-2024 End: 09-18-[address] Marielos Perla DO Work Phone: [facility] Work Phone: Start: 09-18-2024 End: 09-18-2024 Patient encounter procedure Rand Mckeon FRAMER-C -[facility] Work Phone: Start: 09-18-2024 End: 09-18-2024 ambulatory Marielos Perla Facility:[facility] Start: 06-05-2024 End: 06-05-2024 Patient encounter procedure Charlie Johnson FRAMERJessica -[facility] Work Phone: Start: 06-05-2024 End: 06-05-2024 ambulatory Marielos Perla Facility:[facility] Start: 03-09-2024 End: 03-09-2024 ambulatory Charlie Johnson NP Facility:[facility] Start: 02-19-2024 End: 02-21-2024 ambulatory Grant Castelan Facility:[facility] Start: 01-27-2024 End: 01-27-2024 ambulatory Marielos Perla [facility] Start: 07-19-2023 End: 07-19-2023 ambulatory [facility] Work Phone: Start: 07-19-2023 End: 07-19-2023 Patient encounter procedure [facility] Work Phone: Start: 06-14-2023 End: 06-14-2023 ambulatory [facility] Work Phone: Start: 06-14-2023 End: 06-14-2023 Patient encounter procedure [facility], [facility] Work Phone: Start: 11-25-2022 End: 11-25-[address] Marielos Perla Work Phone: [facility] Work Phone: Start: 11-25-2022 End: 11-25-[address] Marielos Perla Work Phone: [facility] Work Phone: Start: 11-23-2022 End: 11-23-[address] Marielos Perla Work Phone: [facility] Work Phone: Start: 11-23-2022 End: 11-23-[address] Marielos Perla Work Phone: [facility] Start: 11-18-2022 End: 11-18-[address] Marielos Perla Work Phone: [facility] Work Phone: Start: 08-20-2022 End: 08-20-[address] Marielos Perla Work Phone: [facility] Work Phone: Start: 08-14-2022 End: 08-14-[address] Marielos Perla Work Phone: [facility] Work Phone: Start: 08-14-2022 End: 08-14-[address] Marielos Perla Work Phone: [facility] Start: 07-08-2022 End: 07-08-[address] Marielos Perla Work Phone: [facility] Work Phone: Start: 07-08-2022 End: 07-08-[address] Marielos Perla Work Phone: [facility] Start: 06-16-[address] Marielos Perla Work Phone: [facility] Start: 06-09-2022 End: 06-09-[address] Marielos Perla Work Phone: [facility] Start: 05-23-2022 End: 05-23-2022 ambulatory [facility] Work Phone: Start: 05-23-2022 End: 05-23-2022 Patient encounter procedure [facility] Start: 03-29-2022 End: 03-29-2022 Emergency department patient visit [facility] Start: 02-25-2022 End: 02-25-2022 ambulatory [facility] Work Phone: Start: 02-25-2022 End: 02-25-2022 Patient encounter procedure [facility] Start: 02-22-2019 End: 03-03-2019 Evaluation and management of inpatient Mil Pettit Work Phone: [facility] Comment on above: CAD in [place] artery (Primary Dx); S/P CABG x 3; [...] mntr dev cleared fda spec home use Rgant A Taylor Work Phone: Start: 03-01-2019 Assay [...] d ev cleared fda spec home use Gimmie Work Phone: Start: 02-25-2019 Urnls dip stick/tabl et rgnt auto w/o microscopy Lukas Moise Work Phone: Start: 02-25-2019 Hemoglobin glycosylated a1c Lukas Moise Work Phone: Start: 02-24-2019 Gluc bld gluc mntr d ev cleared fda spec home use Gimmie Work Phone: Start: 02-24-2019 Gluc bld gluc mntr d ev cleared fda spec home use Gimmie Work Phone: Start: 02-24-2019 Gluc bld gluc mntr d ev cleared fda spec home use Gimmie Work Phone: Start: 02-24-2019 Gluc bld gluc mntr d ev cleared fda spec home use Gimmie Work Phone: Start: 02-23-2019 Gluc bld gluc mntr d ev cleared fda spec home use Gimmie Work Phone: Start: 02-23-2019 Radiologic exam ches [...] artery bypass graft x 3 Charlie Johnson FR[facility]ER-[facility] Comment on above: CABG x3 with GIRALDO to LAD, SVG to OM 2, and SVG to PDA of RCA on 02/27/[address] Taylor at [facility]; Plan of Treatment Date Care Activity Detail Author Start: 01-29-2025 MG Breast - bilatera l Screening [facility] Start: 01-18-2025 X-ray of lumbosacral spine L/S Spine Bending Flex/Ext [facility] Start: 01-18-2025 XR Spine Lumbar and Sacrum Views [facility] Start: 01-08-2025 Patient discharge [facility] Start: 01-08-2025 Notification of physician [facility] Start: 01-08-2025 Patient education [facility] Start: 01-08-2025 Provision of activit y privileges [facility] Start: 01-08-2025 Pulse taking [facility] Start: 01-08-2025 Taking patient vital signs [facility] Start: 01-08-2025 Wound care [facility] Start: 01-08-2025 [facility] Start: 01-08-2025 Catheterization of vein [facility] Start: 01-08-2025 Notification of physician [facility] Start: 01-08-2025 Preoperative care [facility] Start: 01-08-2025 [facility] Start: 01-07-2025 End: 01-07-2025 [facility] Start: 01-07-2025 Care regimes management [facility] Start: 01-07-2025 Notification of physician [facility] Start: 01-07-2025 Referral to windows application packager [facility] Start: 01-07-2025 End: 01-07-2025 [facility] Start: 01-07-2025 Assessment of risk o f venous thromboembolism [facility] Start: 01-07-2025 Insertion of cathete r into peripheral vein [facility] Start: 01-07-2025 Measuring intake and output [facility] Start: 01-07-2025 Providing care accor ding to standard [facility] Start: 01-07-2025 Provision of activit y privileges [facility] Start: 01-07-2025 Referral for physica l therapy [facility] Start: 01-07-2025 Referral to occupati onal therapist [facility] Start: 01-07-2025 Following clinical pathway protocol [facility] Start: 01-07-2025 Admission procedure [facility] Start: 01-07-2025 [facility] Start: 01-03-2025 CT of abdominal aort a with contrast [facility] Start: 06-09-2022 Patient referral [facility] Work Phone: Start: 02-24-2020 Creatinine monitoring Creatinine mon itoring [place], [place] Start: 02-24-2020 Potassium monitoring Potassium monit [place]ing [place] Start: 03-14-2019 End: 03-14-2019 Office Visit 03/14/2019 Office Visit Cardiothoracic Surgery Ronda Carmona, HOIST OPERATOR - [employer] PULLER [address] [place] [address] [phone] [facility] Start: 02-24-2019 Annual Wellness Visi t (AWV) Annual Wellness Visit (AWV) [place], [place] Start: 12-18-2018 Influenza vaccination Flu vaccine (# 1) [place], [place] Start: 2015 DEXA (modify frequen cy per FRAX score) DEXA (modify frequency per FRAX score) [place] Start: 2015 Pneumococcal 65+ yea rs Vaccine (1 of 1 - PPSV23) Pneumococcal 65+ years Vaccine (1 of 1 - PPSV23) [place] Start: 01-31-2000 Breast cancer screen Breast cancer s creen [place], [place] Start: 01-31-2000 Colon cancer screen colonoscopy Colon cancer screen colonoscopy [place] Start: 01-31-2000 Shingles Vaccine (1 of 2) Shingles V accine (1 of 2) [place] Start: 01-31-1968 Diabetic microalbumi ximena test Diabetic microalbuminuria test [place], [place] Start: 1961 DTaP/Tdap/Td vaccine (1 - Tdap) DTaP/Tdap/Td vaccine (1 - Tdap) [place] Start: 01-31-1960 [object Object] Diabetic foot exam [place] Start: 01-31-1960 A1C test (Diabetic o r Prediabetic) A1C test (Diabetic or Prediabetic) [place] Start: 01-31-1960 Diabetic retinal exam Diabetic retin al exam [place] Start: 01-31-1960 Lipid screen Lipid screen [place], [place] Start: 1950 Hepatitis C screen Hepatitis C scree n [place], [place] Acapella Acapella Respira tory Care Routine Every 2hr while awake until discontinued starting 02/27/2019 [place] Comment on above: Every 2hr while awak e until discontinued starting 02/27/2019 Ankle brachial press ure index [facility] Basic metabolic 2000 panel Basic Metabolic Panel Lab Routine Daily until discontinued starting 02/27/2019, 4 completed [place] Comment on above: Daily until disconti nued starting 02/27/2019, 4 completed Basic metabolic 2008 panel with ionized calcium - Serum or Plasma [facility] Blood chemistry [facility] CBC CBC Lab Routine Daily until discontinued starting 02/27/2019, 5 completed [place] Comment on above: Daily until disconti nued starting 02/27/2019, [address] [facility] [place] Comment on above: 0800, 1200, 1600, 20 00 (respiratory use only) until discontinued starting 02/27/2019 Every 4hr until disc ontinued starting 03/02/2019 Incentive spirometry Incentive s pirometry Respiratory Care Routine Every 1hr while awake until discontinued starting 02/27/2019 [facility] [place] Comment on above: Every 1hr while awak e until discontinued starting 02/27/2019 Initiate Oxygen Ther apy Protocol Initiate Oxygen Therapy Protocol Respiratory Care Routine Daily until discontinued starting 02/27/2019 [facility] [place] Comment on above: Daily until disconti nued starting 02/27/2019 MR Lumbar spine [facility] Patient Education Bruises (Contu sions) ED Abrasion [facility] Work Phone: Patient referral [facility] Work Phone: POCT glucose [facility] Comment on above: 4X Daily (AC & HS) u ntil discontinued starting 03/01/2019 As Needed until disc ontinued starting 03/01/2019 End: 02-23-2019 Urinalysis Urinalysis Lab Routine One Time for 1 Occurrences starting 02/23/2019 until 02/23/2019 [facility] [place] Comment on above: One Time for 1 Occur rences starting 02/23/2019 until 02/23/2019 Urinalysis Urinalysis Lab R outine 02/23/2019 6:[address] [facility] [place] [facility] XR CHEST PORTABLE XR CHEST MIHIR BLE Imaging Routine Daily until discontinued starting 02/28/2019, 4 completed [place] Comment on above: Daily until disconti nued starting 02/28/2019, 4 completed XR Lumbar spine 2 or 3 Views [facility] Immunizations Immunization Date Immunization Notes Care Provider Sher ferreira 01-18-2024 influenza, high dose seasonal, preservative-free Dr. Marielos Perla DO Work Phone: [facility] 07-11-2020 Covid (Pfizer) [facility] 07-09-2020 tetanus toxoid, redu deejay diphtheria toxoid, and acellular pertussis vaccine, adsorbed [facility] 06-20-2020 Covid (Pfizer) [facility] 02-01-2019 Influenza virus vaccine [facility] Payers Date Payer Category Payer Medicare [id number] 2023 Self-pay [id number] 2023 Unknown [id number] 2018 Medicare HUMANA MEDICARE HUMANA CHOICE-PPO MEDICARE xxxxxxxxx 2018-Present [address] [address] [place] [address] xxxxxxxxx [id number] Medicare [id number] Medicare MEDICARE PART A B [id number] Unknown [id number] [id number] Unknown [id number] 2.16840.1.369112.3.579.2.462 Unknown [id number] 2.16840.1.438822.3.579.2.462 Unknown [id number] 2.840.1.768348.3.579.2.462 Unknown [id number] 2.16.840.1.164963.3.579.2.462 Unknown [id number] 2.16.840.1.453370.3.579.2.462 Unknown [id number] 2.16.840.1.295933.3.579.2.462 Unknown [id number] 2.16840.1.455347.3.579.2.462 Unknown [id number] 2.16840.1.189170.3.579.2.462 Unknown [id number] 2.16.840.1.335375.3.579.2.462 Unknown [id number] 2.16.840.1.672980.3.579.2.462 Unknown [id number] 2.16.840.1.091311.3.579.2.462 Unknown [id number] 2.16.840.1.663887.3.579.2.462 Unknown [id number] 2.16.840.1.218276.3.579.2.462 Unknown [id number] 2.16.840.1.583934.3.579.2.462 Unknown [id number] 2.840.1.371205.3.579.2.462 Unknown [id number] 2.840.1.829068.3.579.2.462 Unknown [id number] 2.840.1.154038.3.579.2.462 Unknown [id number] 2.840.1.326573.3.579.2.462 Unknown [id number] 2.840.1.250686.3.579.2.462 Unknown [id number] 2.840.1.079463.3.579.2.462 Unknown [id number] 2.840.1.549448.3.579.2.462 Unknown [id number] 2.840.1.292080.3.579.2.462 Unknown [id number] 2.840.1.377144.3.579.2.462 Unknown [id number] 2.16.840.1.128515.3.579.2.462 Unknown [id number] 2.16.840.1.914889.3.579.2.462 Unknown [id number] 2.16840.1.260245.3.579.2.462 Unknown [id number] 2.840.1.508192.3.579.2.462 Unknown [id number] 2.16.840.1.938622.3.579.2.462 Social History Date Type Detail Facility Start: 02-23-2019 End: 11-18-2022 Tobacco smoking status NHIS Unknown if ever smoked [facility] Sex Assigned At Not on file [place] Start: 01-15-2021 None [facility] Start: 01-15-2021 Homeless [facility] Start: 01-15-2021 Cigarettes [facility] Start: 1950 Sex Assigned At Female [facility] Start: 03-09-2024 End: 01-10-2025 Tobacco smoking status NHIS Current Light tobacco smoker [facility] Sex Female [facility] Medical Equipment Procedure Code Equipment Code Equipment Origin al Text Equipment Identifier Dates Test three times a day & as needed for symptoms of irregular blood glucose. [id number] Start: 03-03-2019 Goals Date Patient Goal Desired Activity /State Functional Status Date Assessment Result Facility 01-08-2025 Functional status Ambulates [facility] Work Phone: Mental Status Date Assessment Result Facility 01-08-2025 Cognitive function Voice/Name [facility] Work Phone: Clinical Notes 02-17-2019 to 01-10-2025 Note Date & Type Note Facility 01-10-2025 Progress note [facility] 01-08-2025 Consult note [facility] 01-08-2025 Discharge summary Note Date/Time January 08, 2025 2:20pm [facility] Medical Records Department [address] [facility] [place] [address] Discharge Summary 01/08/25 1357 MR#: [id number] Acct: [id number] Name: CHRISTY FRANCIS Rep #:[id number] : 1950 74 From: Rupali Lott DO PCP: Dr. Marielos Perla DO Status:ADM BRIAN Location: [place] [address] Providers Date of Admission: 01/07/25 Date of [...] who presented to the emergency department at [facility] on 01/07/2025 with a chief complaint of chest pain. She has an extensive cardiac history with previous CABG in 2019 at [facility] as well as PVD, HTN/HPL, and [...] % (Auto) Cancelled, Lymph % (Auto) Cancelled, Loup % (Auto) Cancelled, Eos % (Auto) Cancelled, [...] Drop Cells Cancelled, Ovalocytes Cancelled, Stomatocytes Cancelled, Johnson-Kraemer Bodies Cancelled, Johan Cells Cancelled, Bite Cells [...] (Auto) 68.5, Lymph % (Auto) 13.2 L, Loup % (Auto) 10.8 H, Eos % (Auto) 6.3 H, Baso % (Auto) 0.7, Absolute Neuts (auto) 7.1, Absolute Lymphs (auto) 1.37, Nucleated RBC % 0 01/08/25 06:41: POC Glucose 189 H 01/08/25 11:17: POC Glucose 169 H Radiography Diagnostic Testing: Radiology Impression Chest CTA 01/07/25 13:24 IMPRESSION: No significant abnormality Reading Location: [facility] D/C Instructions Discharge Activity: Return to Normal [...] Self Care Charges/Coding Visit Charges Inpatient E&M: 83746 Disch Hosp >30min 01/08/25 1420 <Electronically signed by Rupali Lott DO> Cosigner Signature (if applicable): CC: Dr. Jorge Anderson MD; Dr. Rupali Lott, DO; Dr. Marielos Perla, DO~ Signed [facility] Work Phone: 1(896) 526-402609-22-2025 Consult note [facility] Medical Records Department [address] [place] [address] Counseling Note - Pharmacy 01/08/25 1655 MR#: [id number] Acct: [id number] Name: CHRISTY FRANCIS Rep #:[id number] : 1950 74 From: Cecy Cheatham PCP: Dr. Marielos Perla DO Status:ADM BRIAN Y Location: [place] [address] Pharmacy [facility] Counseling Pharmacy Service has performed discharge [...] Signature (if applicable): Date CC: ~ Signed [facility]09-22-2025 Progress note Author Jorge Anderson [facility] Note Date/Time January 08, 2025 12:53pm [facility] Medical Records Department [address] [place] [address] Progress Note - Cardiology 01/08/25 1250 MR#: [id number] Acct: [id number] Name: CHRISTY FRANCIS Rep #:[id number] : 1950 74 From: Jorge Anderson MD PCP: Dr. Marielos Perla, DO Status:ADM BRIAN Location: [place] [address] Subjective Subjective Patient seen and evaluated. Underwent [...] L 01/07/25 12:32: Lymph % (Auto) Cancelled, Loup % (Auto) 9.1 01/07/25 12:32: Loup % (Auto) Cancelled, Eos % (Auto) 5.2 [...] Drop Cells Cancelled, Ovalocytes Cancelled, Stomatocytes Cancelled, Johnson-Kraemer Bodies Cancelled, Johan Cells Cancelled, Bite Cells [...] (Auto) 68.5, Lymph % (Auto) 13.2 L, Loup % (Auto) 10.8 H, Eos % (Auto) [...] L 01/07/25 12:32: Lymph % (Auto) Cancelled, Loup % (Auto) 9.1 01/07/25 12:32: Loup % (Auto) Cancelled, Eos % (Auto) 5.2 [...] (Auto) 68.5, Lymph % (Auto) 13.2 L, Loup % (Auto) 10.8 H, Eos % (Auto) 6.3 H, Baso % (Auto) 0.7, Absolute Neuts (auto) 7.1, Nucleated RBC % 0 Rhythm: EKG: ECHO: Stress Test: Cardiac Cath: PCI: CT Surgery: Holter monitor: EPS: PPM: CXR: Chest CT Scan: Radiography Diagnostic Testing: Radiology Impression Chest X-Ray 01/07/25 12:40 IMPRESSION: NO ACUTE FINDINGS. Reading Location: [facility] Chest CTA 01/07/25 13:24 IMPRESSION: No significant abnormality Reading Location: [facility] Physical Exam Const alert, oriented x3 and [...] Cosigner Signature (if applicable): CC: ~ Signed [facility] Work Phone: 1(157) 307-973409-22-2025 Discharge summary [facility] Medical Records Department [address] [place] [address] Discharge Summary 01/08/25 9097 MR#: [id number] Acct: [id number] Name: CHRISTY FRANCIS Rep #:[id number] : 1950 74 From: Rupali Lott DO PCP: Dr. Marielos Perla DO Status:ADM BRIAN Location: [place] [address] Providers Date of Admission: 01/07/25 Date of [...] who presented to the emergency department at [facility] on 01/07/2025 with a chief complaint of chest pain. She has an extensive cardiac history with previous CABG in 2019 at [facility] as well as PVD, HTN/HPL, and [...] % (Auto) Cancelled, Lymph % (Auto) Cancelled, Loup % (Auto) Cancelled, Eos % (Auto) Cancelled, [...] Drop Cells Cancelled, Ovalocytes Cancelled, Stomatocytes Cancelled, Johnson-Kraemer Bodies Cancelled, Johan Cells Cancelled, Bite Cells [...] (Auto) 68.5, Lymph % (Auto) 13.2 L, Loup % (Auto) 10.8 H, Eos % (Auto) 6.3 H, Baso % (Auto) 0.7, Absolute Neuts (auto) 7.1, Absolute Lymphs (auto) 1.37, Nucleated RBC % 0 01/08/25 06:41: POC Glucose 189 H 01/08/25 11:17: POC Glucose 169 H Radiography Diagnostic Testing: Radiology Impression Chest CTA 01/07/25 13:24 IMPRESSION: No significant abnormality Reading Location: [facility] D/C Instructions Discharge Activity: Return to Normal [...] Self Care Charges/Coding Visit Charges Inpatient E&M: 04216 Disch Hosp >30min 01/08/25 1420 Cosigner Signature (if applicable): CC: Dr. Jorge Anderson MD; Dr. Rupali Lott DO; Dr. Marielos Perla DO~ Signed [facility]09-22-2025 Hospital Discharge instructionsAdditional Instructions 1. Please notice the changes in your blood pressure medicine with a decrease in your losartan from 25 mg to 12.5 mg and an increase in your metoprolol from 50 mg to 75 mg. I did this to make sure your blood pressure does not drop too low and hopefully help with your heart rate. Date of Discharge: 01/08/25[facility] Work Phone: 1(687) 905-683109-22-[address] [facility] Medical Records Department [address] [place] [address] Discharge Summary 01/08/25 1357 MR#: [id number] Acct: [id number] Name: CHRISTY FRANCIS Rep #: [id number] : 1950 74 From: Rupali Lott DO PCP: Dr. Marielos Perla DO Status:ADM BRIAN Location: [place] [address] Providers Date of Admission: 01/07/25 Date of [...] who presented to the emergency department at [facility] on 01/07/2025 with a chief complaint of chest pain. She has an extensive cardiac history with previous CABG in 2019 at [facility] as well as PVD, HTN/HPL, and [...] twice daily and (more content not included)... [facility]2025 Progress note [facility] Medical Records Department [address] [place] [address] Progress Note - Cardiology 01/08/25 1250 MR#: [id number] Acct: [id number] Name: CHRISTY FRANCIS Rep #:[id number] : 1950 74 From: Jorge Anderson MD PCP: Dr. Marielos Perla, DO Status:ADM BRIAN Location: [place] [address] Subjective Subjective Patient seen and evaluated. Underwent [...] L 01/07/25 12:32: Lymph % (Auto) Cancelled, Loup % (Auto) 9.1 01/07/25 12:32: Loup % (Auto) Cancelled, Eos % (Auto) 5.2 [...] Drop Cells Cancelled, Ovalocytes Cancelled, Stomatocytes Cancelled, Johnson-Kraemer Bodies Cancelled, Johan Cells Cancelled, Bite Cells [...] (Auto) 68.5, Lymph % (Auto) 13.2 L, Loup % (Auto) 10.8 H, Eos % (Auto) [...] L 01/07/25 12:32: Lymph % (Auto) Cancelled, Loup % (Auto) 9.1 01/07/25 12:32: Loup % (Auto) Cancelled, Eos % (Auto) 5.2 [...] (Auto) 68.5, Lymph % (Auto) 13.2 L, Loup % (Auto) 10.8 H, Eos % (Auto) 6.3 H, Baso % (Auto) 0.7, Absolute Neuts (auto) 7.1, Nucleated RBC % 0 Rhythm: EKG: ECHO: Stress Test: Cardiac Cath: PCI: CT Surgery: Holter monitor: EPS: PPM: CXR: Chest CT Scan: Radiography Diagnostic Testing: Radiology Impression Chest X-Ray 01/07/25 12:40 IMPRESSION: NO ACUTE FINDINGS. Reading Location: [facility] Chest CTA 01/07/25 13:24 IMPRESSION: No significant abnormality Reading Location: [facility] Physical Exam Const alert, oriented x3 and [...] Cosigner Signature (if applicable): CC: ~ Signed [facility]09-22-2025 Consult note Author Jorge Anderson [facility] Note Date/Time January 08, 2025 4:48pm [facility] Medical Records Department [address] [place] [address] Consultation - Cardiology 01/08/25 0652 MR#: [id number] Acct: [id number] Name: CHRISTY FRANCIS Rep #:[id number] : 1950 74 From: Jorge Anderson MD PCP: Dr. Marielos Perla, DO Status:DIS BRIAN Location: [place] [address]- Assessment & Plan Assessment/Plan (1) Chest pain: [...] to the obtuse marginal branch was occluded. [facility] Medical History Severe left ventricular systolic dysfunction (LVSD) Palpitations Right rotator cuff tear Trigger finger of both hands Carpal tunnel syndrome on both sides FHx: cholecystectomy History of left heart catheterization (LHC) (~06/03/21) Essential hypertension Mechanical loosening of prosthetic knee Atherosclerosis of [place] coronary artery of [place] heart without angina pectoris PAD (peripheral artery [...] L 01/07/25 12:32: Lymph % (Auto) Cancelled, Loup % (Auto) 9.1 01/07/25 12:32: Loup % (Auto) Cancelled, Eos % (Auto) 5.2 [...] Drop Cells Cancelled, Ovalocytes Cancelled, Stomatocytes Cancelled, Johnson-Kraemer Bodies Cancelled, Johan Cells Cancelled, Bite Cells [...] (Auto) 68.5, Lymph % (Auto) 13.2 L, Loup % (Auto) 10.8 H, Eos % (Auto) [...] L 01/07/25 12:32: Lymph % (Auto) Cancelled, Loup % (Auto) 9.1 01/07/25 12:32: Loup % (Auto) Cancelled, Eos % (Auto) 5.2 [...] (Auto) 68.5, Lymph % (Auto) 13.2 L, Loup % (Auto) 10.8 H, Eos % (Auto) 6.3 H, Baso % (Auto) 0.7, Absolute Neuts (auto) 7.1, Nucleated RBC % 0 Rhythm: EKG: ECHO: Stress Test: Cardiac Cath: PCI: CT Surgery: Holter monitor: EPS: PPM: CXR: Chest CT Scan: Radiography Diagnostic Testing: Radiology Impression Chest X-Ray 01/07/25 12:40 IMPRESSION: NO ACUTE FINDINGS. Reading Location: [facility] Chest CTA 01/07/25 13:24 IMPRESSION: No significant abnormality Reading Location: [facility] LINK Risk Score for UA/STEMI Assesmment (YES [...] applicable): CC: Dr. Marielos Perla, DO~ Signed [facility] Work Phone: 1(797) 691-894509-21-2025 History and physical note Author [facility] Note Date/Time January 07, 2025 5:21pm [facility] Medical Records Department [address] [place] [address] H&P Exam - Hospitalist 01/07/25 1436 MR#: [id number] Acct: [id number] Name: CHRISTY FRANCIS Rep #:[id number] : 1950 74 From: Maritza Suresh MD PCP: Dr. Marielos Perla, Status:ADM BRIAN Location: [place] [id number]- HPI - General General Date of Admission: [...] a history of CABG in [address] [facility] as well as peripheral artery disease, hyperlipidemia and type 2 diabetes mellitus. She also admitted to [facility] for several weeks prior to admission. She [...] managed for chest pain rule out ACS. [facility] Medical History Severe left ventricular systolic dysfunction (LVSD) Palpitations Right rotator cuff tear Trigger finger of both hands Carpal tunnel syndrome on both sides FHx: cholecystectomy History of left heart catheterization (LHC) (~06/03/21) Essential hypertension Mechanical loosening of prosthetic knee Atherosclerosis of [place] coronary artery of [place] heart without angina pectoris PAD (peripheral artery [...] (Auto) 70.0, Lymph % (Auto) 14.8 L, Loup % (Auto) 9.1, Eos % (Auto) 5.2 [...] 12:40 IMPRESSION: NO ACUTE FINDINGS. Reading Location: [facility] Assessment & Plan Assessment/Plan (1) Chest pain: [...] was all done in presence of her fsglqqke-kj-cfg Lynda Francis who is a nurse in the hospital. * Patient elects to be full code. * Total gmri-ya-byvy time 16 minutes. Charges/Coding Visit Charges Inpatient E&M: 48688 Init Hosp L3 Procedures Hospitalists Procedures: 57810 Advncd Care Plan 30 Min 01/07/25 1721 <Electronically signed by Maritza Suresh MD> Cosigner Signature (if applicable): CC: Dr. Marielos Perla DO; Dr. Maritza Suresh MD~ [facility]igned [facility] Work Phone: 1(846) 394-153709-21-2025 History and physical note [facility] Medical Records Department [address] [place] [address] H&P Exam - Hospitalist 01/07/25 1436 MR#: [id number] Acct: [id number] Name: CHRISTY FRANCIS Rep #:[id number] : 1950 74 From: Maritza Suresh MD PCP: Dr. Marielos Perla DO Status:ADM BRIAN Location: [place] [address] HPI - General General Date of Admission: [...] a history of CABG in [address] [facility] as well as peripheral artery disease,hyperlipidemia and type 2 diabetes mellitus. She also admitted to [facility] for several weeks prior to [...] managed for chest pain rule out ACS. [facility] Medical History Severe left ventricular systolic dysfunction (LVSD) Palpitations Right rotator cuff tear Trigger finger of both hands Carpal tunnel syndrome on both sides FHx: cholecystectomy History of left heart catheterization (LHC) (~06/03/21) Essential hypertension Mechanical loosening of prosthetic knee Atherosclerosis of [place] coronary artery of [place] heart without angina pectoris PAD (peripheral artery [...] (Auto) 70.0, Lymph % (Auto) 14.8 L, Loup % (Auto) 9.1, Eos % (Auto) 5.2 [...] 12:40 IMPRESSION: NO ACUTE FINDINGS. Reading Location: [id number] Assessment & Plan Assessment/Plan (1) Chest pain: [...] was all done in presence of her cmddoazz-tx-puy Lynda Francis who is a nurse in the hospital. * Patient elects to be full code. * Total fzvs-xe-yuhb time 16 minutes. Charges/Coding Visit Charges Inpatient E&M: 43930 Init Hosp L3 Procedures Hospitalists Procedures: 39621 Advncd Care Plan 30 Min 01/07/25 1721 Cosigner Signature (if applicable): CC: Dr. Marielos Perla DO; Dr. Maritza Suresh MD~ Signed [facility]09-21-2025 Discharge summary Author Elena Bill [facility] Note Date/Time January 07, 2025 2:51pm [facility] Medical Records Department [address] [place] [address] Emergency Department Summary 01/07/25 MR#: [id number] Acct: [id number] Name: CHRISTY FRANCIS Rep #:[id number] : 1950 74 From: Elena Bill MD PCP: Dr. Marielos Perla DO Status:REG ER Location: ED HPI History of Present Illness Chief Complaint: Chest Pain Narrative Narrative: Patient is a 74-year-old female presenting to the emergency department for chestpain that started around 9 AM this morning. Patient has a past medical history of a CABG in 2019 at [facility], palpitations, hypertension, hyperlipidemia, type 2 diabetes [...] baby aspirin this morning prior to coming. [facility] Medical History Severe left ventricular systolic dysfunction (LVSD) Palpitations Right rotator cuff tear Trigger finger of both hands Carpal tunnel syndrome on both sides FHx: cholecystectomy History of left heart catheterization (LHC) (~06/03/21) Essential hypertension Mechanical loosening of prosthetic knee Atherosclerosis of [place] coronary artery of [place] heart without angina pectoris PAD (peripheral artery [...] (Auto) 70.0 Lymph % (Auto) 14.8 L Loup % (Auto) 9.1 Eos % (Auto) 5.2 [...] 12:40 IMPRESSION: NO ACUTE FINDINGS. Reading Location: [facility] Chest CTA 01/07/25 13:24 IMPRESSION: No significant abnormality Reading Location: [facility] Discharge Plan Triage Chief Complaint: Chest [...] [Primary Care Provider, Family Practice] Print Language: Tongan What to do if you have Problems For any increased pain, shortness of breath, bleeding, nausea or vomiting, chestpain, or any unexpected problems, contact your Primary Care Provider. Call [facility] ([phone]) or report to the closest Emergency Room. Call 911 if necessary. 01/07/25 1456 <Electronically signed by Elena Bill MD> Cosigner Signature (if applicable): CC: Dr. Marielos Perla DO ~ Signed [facility] Work Phone: 1(377) 562-449309-21-2025 Discharge summary [facility] Medical Records Department [address] [place] [address] Emergency Department Summary 01/07/25 MR#: [id number] Acct: [id number] Name: CHRISTY FRANCIS Rep #:[id number] : 1950 74 From: Elena Bill MD PCP: Dr. Marielos Perla DO Status:REG ER Location: ED HPI History of Present Illness Chief Complaint: Chest Pain Narrative Narrative: Patient is a 74-year-old female presenting to the emergency department for chestpain that started around 9 AM this morning. Patient has a past medical history of a CABG in 2019 at [facility], palpitations, hypertension, hyperlipidemia, type 2 diabetes [...] baby aspirin this morning prior to coming. [facility] Medical History Severe left ventricular systolic dysfunction (LVSD) Palpitations Right rotator cuff tear Trigger finger of both hands Carpal tunnel syndrome on both sides FHx: cholecystectomy History of left heart catheterization (LHC) (~06/03/21) Essential hypertension Mechanical loosening of prosthetic knee Atherosclerosis of [place] coronary artery of [place] heart without angina pectoris PAD (peripheral artery [...] .every week Unknown History subcutaneous pen injector (Aldounrocky) metoprolol [...] (Auto) 70.0 Lymph % (Auto) 14.8 L Loup % (Auto) 9.1 Eos % (Auto) 5.2 [...] 12:40 IMPRESSION: NO ACUTE FINDINGS. Reading Location: [facility] Chest CTA 01/07/25 13:24 IMPRESSION: No significant abnormality Reading [facility] Discharge Plan Triage Chief Complaint: Chest [...] [Primary Care Provider, Family Practice] Print Language: Tongan What to do if you have Problems For any increased pain, shortness of breath, bleeding, nausea or vomiting, chestpain, or any unexpected problems, contact your Primary Care Provider. Call [facility] ([phone]) or report tothe closest Emergency Room. Call 911 if necessary. 01/07/25 1451 Cosigner Signature (if applicable): CC: Dr. Marielos Perla DO ~ Signed [facility]09-21-2025 Radiology Diagnostic study note [facility] Imaging Services [address] [place], [place] [address] CTA Chest W/WO Contrast MR#: [id number] Acct: [id number] Name: CHRISTY FRANCIS Rep #: [id number] : 1950 F 74 From: Michael Ignacio MD PCP: Dr. Marielos Perla DO Status: REG ER Study:CTA Chest W/WO Contrast Date of Exam: 01/07/25 Exam# [id number] Ordering Dr: Tomasz Bill MD PROCEDURE: CTA [...] Contrast IMPRESSION: No significant abnormality Reading Location: [facility] CC: Dr. Elena Bill MD; Dr. Marielos Perla DO ~ Manager Play: Signed [facility]09-21-2025 Radiology Diagnostic study note [facility] Imaging Services [address] [place] [address] Chest PA and Lateral MR#: [id number] Acct: [id number] Name: CHRISTY FRANCIS Rep #: [id number] : 1950 F 74 From: Suhail Haines MD PCP: Dr. Marielos Perla DO Status: REG ER Study:Chest PA and Lateral Date of Exam: 01/07/25 Exam# [id number] Ordering Dr: Tomasz Bill MD PROCEDURE: CHEST [...] Lateral IMPRESSION: NO ACUTE FINDINGS. Reading Location: [id number] CC: Dr. Elena Bill MD; Dr. Marielos Perla DO ~ Manager Play: Signed [facility]09-06-2025 Radiology Diagnostic study note [facility] Imaging Services [address] [place], [place] [address] Lumbar Spine 2 or 3 Views MR#: [id number] Acct: [id number] Name: CHRISTY FRANCIS Rep #: [id number] : 1950 74 From: Pamela Bullock MD PCP: Dr. Marielos Perla DO Status: REG CLI Study:Lumbar Spine 2 or 3 Views Date of Exam: 12/22/24 Exam# [id number] Ordering Dr: Rio Young PA EXAM: XR [...] changes lumbar spine as described. Reading Location: [facility] CC: SKYLER Watson; Dr. Marielos Perla DO ~ Manager Play: Signed [facility]08-13-2025 Radiology Diagnostic study note [facility] Imaging Services [address] [place] [id number] Pelvic w/ Transvaginal MR#: [id number] Acct: [id number] Name: CHRISTY FRANCIS Rep #: [id number] : 1950 74 From: Randy Reese MD PCP: Dr. Marielos Perla DO Status: REG CLI Study:Pelvic w/ Transvaginal Date of Exam: 11/29/24 Exam# [id number] Ordering Dr: Tresa Perla sa, DO PROCEDURE: [...] Endometrial thickening. Clinical correlation recommended. Reading Location: [id number] CC: Dr. Marielos Perla, DO ~ Manager Play: Signed [facility]07-17-2025 Evaluation note* Diagnosis Onset Date Resolution Status Admit Date Severe left ventricular systolic dysfunction (LVSD) acute November 02, 2024 10:11am Essential hypertension [facility] 2024 10:11am History of coronary artery bypass graft x February, chronic November 02, 2024 10:11am HLD (hyperlipidemia) chronic November 02, 2024 10:11am PAD (peripheral artery disease) chronic November 02, 2024 10:11am [facility] Work Phone: 1(146) 677-135407-17-2025 Evaluation note* Diagnosis Onset Date Resolution Status [...] (peripheral artery disease) chronic December 12 10:37am [facility] Work Phone: 1(406) 130-401307-17-2025 Evaluation note* Diagnosis Onset Date Resolution Status [...] 3:00pm Thickened endometrium acute Sep 2024 10:45am [facility] Work Phone: 1(979) 134-883706-02-2025 Radiology Diagnostic study note [facility] Imaging Services [address] [place], [place] [address] L/S Spine Min 4 Views MR#: [id number] Acct: [id number] Name: CHRISTY FRANCIS Rep #: [id number] : 1950 F 74 From: Adrianna Serrano MD PCP: Dr. Marielos Perla, Status: REG CLI Study:L/S Spine Min 4 Views Date of Exam: 09/18/24 Exam# [id number] Ordering Dr: Ra javier Mckeon FRAMER-C PROCEDURE: L/S SPINE MIN 4 VIEWS 09/18/2024 REASON FOR EXAM: PAIN, SCIATICA TECHNIQUE: Four views of the lumbar spine COMPARISON: None FINDINGS: There are 5 jmj-slz-ffqyqjn lumbar-type vertebral bodies. The pars are not [...] JOHNATHON Mckeon; Dr. Marielos Perla DO ~ Manager Play: Signed [facility]02-17-2025 Evaluation note* Diagnosis Onset Date Resolution Status Admit Date Essential hypertension chronic Fe bruary 2024 10:41am History of coronary artery bypass graft x 3 February, chronic June 05, 2024 10:41am HLD (hyperlipidemia) chronic Febr uary 2024 10:41am PAD (peripheral artery disease) chronic June 05, 025 10:41am Shortness of breath chronic u kristine2024 10:41am [facility] Work Phone: 1(955) 334-898511-04-2024 [facility] Medical Records Department [address] [place] [address] Discharge Summary 02/21/24 1153 MR#: [id number] Acct: [id number] Name: CHRISTY FRANCIS Rep #: [id number] : 1950 74 From: Kaushik Castro MD PCP: Dr. Marielos Perla DO Status:ADM BRIAN Location: [place] [id number] Providers Date of Admission: 02/19/24 Date of [...] Pain: Patient placed on a monitored bed ND had so far been ruled out with [...] mg tablet,delayed release 81 mg PO DAILY [facility] 12/15/13 nitroglycerin 0.4 mg sublingual tablet [...] 30.1, MCHC 32.7, RDW (more content not included)...[facility] Evaluation note* Diagnosis Onset Date Resolution Status Chest pain acute Essential hypertension acute History of coronary artery bypass graft x February, acute HLD (hyperlipidemia) chronic PAD (peripheral artery disease) [facility] Work Phone: 1(914) 390-524011-01-2019 Evaluation note* Diagnosis Onset Date Resolution Status Chest pain acute Essential hypertension acute History of coronary artery bypass graft x February, acute HLD (hyperlipidemia) chronic PAD (peripheral artery disease) chronic Essential hypertension acute History of coronary artery bypass graft x February, acute Palpitations acute HLD (hyperlipidemia) chronic PAD (peripheral artery disease) [facility] Work Phone: 1(584) 133-314411-01-2019 Evaluation note* Diagnosis Onset Date Resolution Status Admit Date Severe left ventricular systolic dysfunction (LVSD) acute November 02, 2024 10:11am Essential hypertension chronic Ju 2024 10:11am History of coronary artery bypass graft x February, chronic November 02, 2024 10:11am HLD (hyperlipidemia) chronic November 02, 2024 10:11am PAD (peripheral artery disease) chronic November 02, 2024 10:11am [facility] Work Phone: Consult note Author Jorge Anderson [facility] Note Date/Time January 08, 2025 4:48pm [facility] Medical Records Department [address] [place] [address] Consultation - Cardiology 01/08/25 0652 MR#: [id number] Acct: [id number] Name: CHRISTY FRANCIS Rep #:[id number] : 1950 74 From: Jorge Anderson MD PCP: Dr. Marielos Perla, DO Status:DIS BRIAN Location: [place] [address] Assessment & Plan Assessment/Plan (1) Chest pain: [...] to the obtuse marginal branch was occluded. [facility] Medical History Severe left ventricular systolic dysfunction (LVSD) Palpitations Right rotator cuff tear Trigger finger of both hands Carpal tunnel syndrome on both sides FHx: cholecystectomy History of left heart catheterization (LHC) (~06/03/21) Essential hypertension Mechanical loosening of prosthetic knee Atherosclerosis of [place] coronary artery of [place] heart without angina pectoris PAD (peripheral artery [...] L 01/07/25 12:32: Lymph % (Auto) Cancelled, Loup % (Auto) 9.1 01/07/25 12:32: Loup % (Auto) Cancelled, Eos % (Auto) 5.2 [...] Drop Cells Cancelled, Ovalocytes Cancelled, Stomatocytes Cancelled, Johnson-Kraemer Bodies Cancelled, Johan Cells Cancelled, Bite Cells [...] (Auto) 68.5, Lymph % (Auto) 13.2 L, Loup % (Auto) 10.8 H, Eos % (Auto) [...] L 01/07/25 12:32: Lymph % (Auto) Cancelled, Loup % (Auto) 9.1 01/07/25 12:32: Loup % (Auto) Cancelled, Eos % (Auto) 5.2 [...] (Auto) 68.5, Lymph % (Auto) 13.2 L, Loup % (Auto) 10.8 H, Eos % (Auto) 6.3 H, Baso % (Auto) 0.7, Absolute Neuts (auto) 7.1, Nucleated RBC % 0 Rhythm: EKG: ECHO: Stress Test: Cardiac Cath: PCI: CT Surgery: Holter monitor: EPS: PPM: CXR: Chest CT Scan: Radiography Diagnostic Testing: Radiology Impression Chest X-Ray 01/07/25 12:40 IMPRESSION: NO ACUTE FINDINGS. Reading Location: [facility] Chest CTA 01/07/25 13:24 IMPRESSION: No significant abnormality Reading Location: [facility] LINK Risk Score for UA/STEMI Assesmment (YES [...] applicable): CC: Dr. Marielos Perla, DO~ Signed [facility] Work Phone: Consult note Author Cecy Cheatham [facility] Note Date/Time January 08, 2025 3:16pm [facility] Medical Records Department [address] [place] [address] Counseling Note - Pharmacy 01/08/25 2150 MR#: [id number] Acct: [id number] Name: CHRISTY FRANCIS Rep #:[id number] : 1950 74 From: Cecy Cheatham PCP: Dr. Marielos Perla DO Status:ADM BRIAN Y Location: [place] [address] Pharmacy [facility]acy Service has performed discharge [...] Signature (if applicable): Date CC: ~ Signed [facility] Work Phone: Discharge summary Author Rupali Lott [facility] Note Date/Time January 08, 2025 2:20pm [facility] Medical Records Department [address] [place] [address] Discharge Summary 01/08/25 1357 MR#: [id number] Acct: [id number] Name: CHRISTY FRANCIS Rep #:[id number] : 1950 74 From: Rupali Lott DO PCP: Dr. Marielos Perla DO Status:ADM BRIAN Location: [place] [address] Providers Date of Admission: 01/07/25 Date of [...] who [facility] with a chief complaint of chest pain. She has an extensive cardiac history with previous CABG in 2019 at [facility] as well as PVD, HTN/HPL, and [...] % (Auto) Cancelled, Lymph % (Auto) Cancelled, Loup % (Auto) Cancelled, Eos % (Auto) Cancelled, [...] Drop Cells Cancelled, Ovalocytes Cancelled, Stomatocytes Cancelled, Johnson-Kraemer Bodies Cancelled, Johan Cells Cancelled, Bite Cells [...] (Auto) 68.5, Lymph % (Auto) 13.2 L, Loup % (Auto) 10.8 H, Eos % (Auto) 6.3 H, Baso % (Auto) 0.7, Absolute Neuts (auto) 7.1, Absolute Lymphs (auto) 1.37, Nucleated RBC % 0 01/08/25 06:41: POC Glucose 189 H 01/08/25 11:17: POC Glucose 169 H Radiography Diagnostic Testing: Radiology Impression Chest CTA 01/07/25 13:24 IMPRESSION: No significant abnormality Reading Location: [facility] D/C Instructions Discharge Activity: Return to Normal [...] Self Care Charges/Coding Visit Charges Inpatient E&M: 88855 Disch Hosp >30min 01/08/25 1420 <Electronically signed by Rupali Lott DO> Cosigner Signature (if applicable): CC: Dr. Jorge Anderson MD; Dr. Rupali Lott DO; Dr. Marielos Perla DO~ Signed [facility] Work Phone: Evaluation noteNo assessment information available [facility] Work Phone: Evaluation note* Diagnosis Onset Date Resolution Status Right rotator cuff tear acut e [facility] Work Phone: History and physical note Author Maritza Suresh [facility] Note Date/Time January 07, 2025 5:21pm [facility] Medical Records Department [address] [place] [address] H&P Exam - Hospitalist 01/07/25 1436 MR#: [id number] Acct: [id number] Name: CHRISTY FRANCIS Rep #:[id number] : 1950 74 From: Maritza Suresh MD PCP: Dr. Marielos Perla, DO Status:ADM BRIAN Location: [place] [address] HPI - General General Date of Admission: [...] a history of CABG in [address] [facility] as well as peripheral artery disease, hyperlipidemia and type 2 diabetes mellitus. She also admitted to [facility] for several weeks prior to admission. She [...] managed for chest pain rule out ACS. [facility] Medical History Severe left ventricular systolic dysfunction (LVSD) Palpitations Right rotator cuff tear Trigger finger of both hands Carpal tunnel syndrome on both sides FHx: cholecystectomy History of left heart catheterization (LHC) (~06/03/21) Essential hypertension Mechanical loosening of prosthetic knee Atherosclerosis of [place] coronary artery of [place] heart without angina pectoris PAD (peripheral artery [...] (Auto) 70.0, Lymph % (Auto) 14.8 L, Loup % (Auto) 9.1, Eos % (Auto) 5.2 [...] 12:40 IMPRESSION: NO ACUTE FINDINGS. Reading Location: [facility] Assessment & Plan Assessment/Plan (1) Chest pain: [...] was all done in presence of her aztdmomo-lk-tvb Lynda Francis who is a nurse in the hospital. * Patient elects to be full code. * Total afin-nv-qxsb time 16 minutes. Charges/Coding Visit Charges Inpatient E&M: 04122 Init Hosp L3 Procedures Hospitalists Procedures: 47184 Advncd Care Plan 30 Min 01/07/25 1721 <Electronically signed by Maritza Suresh MD> Cosigner Signature (if applicable): CC: Dr. Marielos Perla DO; Dr. Maritza Suresh MD~ Signed [facility] Work Phone: Hospital Discharge instructions Additional Instructions X-rays of your shoulder knee showed no broken bones. Rest, ice, and use the Percocet as needed. After that you can take Tylenol or Motrin. If symptoms are not improving in 1 week please see your primary care doctor for reevaluation.[facility] Work Phone: Hospital Discharge instructionsAdditional Instructions 1. [...] with your heart rate. [facility]: [facility] Progress note Author Jorge Anderson [facility] Note Date/Time January 08, 2025 12:53pm [facility] Medical Records Department [address] [facility] [place] [address] Progress Note - Cardiology 01/08/25 1250 MR#: [id number] Acct: [id number] Name: CHRISTY FRANCIS Rep #:[id number] : 1950 74 From: Jorge Anderson MD PCP: Dr. Marielos Perla, DO Status:ADM BRIAN Location: [place] [address] Subjective Subjective Patient seen and evaluated. Underwent [...] L 01/07/25 12:32: Lymph % (Auto) Cancelled, Loup % (Auto) 9.1 01/07/25 12:32: Loup % (Auto) Cancelled, Eos % (Auto) 5.2 [...] Drop Cells Cancelled, Ovalocytes Cancelled, Stomatocytes Cancelled, Johnson-Kraemer Bodies Cancelled, Hessmer Cells Cancelled, Bite Cells Cancelled, Crenated Cell [...] (Auto) 68.5, Lymph % (Auto) 13.2 L, Loup % (Auto) 10.8 H, Eos % (Auto) [...] L 01/07/25 12:32: Lymph % (Auto) Cancelled, Loup % (Auto) 9.1 01/07/25 12:32: Loup % (Auto) Cancelled, Eos % (Auto) 5.2 [...] (Auto) 68.5, Lymph % (Auto) 13.2 L, Loup % (Auto) 10.8 H, Eos % (Auto) 6.3 H, Baso % (Auto) 0.7, Absolute Neuts (auto) 7.1, Nucleated RBC % 0 Rhythm: EKG: ECHO: Stress Test: Cardiac Cath: PCI: CT Surgery: Holter monitor: EPS: PPM: CXR: Chest CT Scan: Radiography Diagnostic Testing: Radiology Impression Chest X-Ray 01/07/25 12:40 IMPRESSION: NO ACUTE FINDINGS. Reading Location: [facility] Chest CTA 01/07/25 13:24 IMPRESSION: No significant abnormality Reading Location: [facility] Physical Exam Const alert, oriented x3 and [...] particular time. Will review her medications. 01/08/25 9688 <Electronically signed by Jorge Anderson MD> Cosigner Signature (if applicable): CC: ~ Signed [facility] Work Phone: Progress note Author Lamar Olivera [facility] Note Date/Time January 10, 2025 11:16am [facility] [address], [address] [place] [address] OFFICE VISIT Date of Service: 01/10/25 MR#: [id number] Acct: [id number] Name: CHRISTY FRANCIS Rep #: [id number] : 1950 Provider: JOHNATHON Olivera Age/Sex: 74/F Location: [facility] Status: Signed Intake Vital Signs 11/02/24 10:17 01/07/25 16:04 01/10/25 10:46 Height 5 ft 2 in 5 ft 2 in 5 ft 2 in Weight: 167 lb BMI 30.5 BP 125/74 H Blood Pressure Location Rt brachial Position Sitting Pulse 98 Pulse Source Monitor Intake Visit Reasons: NU (CLAIRE) Anesthesiology Tech Required: No Accompanied by: Self Is patient [...] Mechanical loosening of prosthetic knee Atherosclerosis of [place] coronary artery of [place] heart without angina pectoris PAD (peripheral artery [...] Locatn Provider FOB [birth year] Germán 10[birth year] [facility]ude [facility] HPI EMB ([facility]) Details: CHRISTY FRANCIS is a 74 year [...] Thickened endometrium R93.89 CPT Codes Endometrial Biopsy (72213) Assessment and Plan Assessment and Plan (1) Thickened endometrium: Status: Acute Comment: 6.6mm. no vag bleeding. EMB pending Orders: Orders Endometrial Biopsy Today SCRN MAMM (CAD)W/LAVON BILAT Today Plan Reviewed S&S infection Call pathology If normal than can just monitor Mammogram ordered 01/10/25 1116 <Electronically signed by Lamar juárez FRAMER FRAMER-C> Date _ Lamar Olivera FRAMER FRAMER-C Cosigner Signature: Date (if applicable) CC: Dr. Marielos Perla, DO ~ [facility] Work Phone: Reason for referral (narrative)No reason for referral information availableWAdena [facility] Work Phone: Discharge Instructions * Discharge Instr - Lab* Yamilet Nogueira, YUE - 03/02/2019 3:13 PM EST Your physician has ordered skilled home care services for you. Your home care will be provided by: [facility] [phone] * Additional Instructions* Jose Maria Lukas, HOIST OPERATOR - [employer]AWBONE PULLER - 03/03/2019 When to call the surgeon: If any symptoms concern you, call us: -Dr. Taylor/Dr. Medina's office -Phone number [phone] -[address] Notify us if the following occur: [...] Everywhere. * Coronary Artery Bypass Graft: Post-op (Tongan) documented in this encounter History of Present [...] medications would be and if reasonable with [facility] if not then will [...] Date 03/03/19 0000 - 03/03/19 2359 Shift 6057-1630 3340-8350 7186-4196 24 Hour Total INTAKE P.O. 120 120 [...] gms)/meal Problem List: Principal Problem: CAD in [place] artery Active Problems: S/P CABG x 3 [...] 3:28 PM EST Physical Therapy Facility/Department: [facility] Daily Treatment Note NAME: [...] of Arthritis, Blood circulation, collateral, CAD in [place] artery, Diabetes mellitus ([facility]), HFrEF (heart failure with reduced ejection fraction) ([facility]), and Hypertension. has a past surgical [...] GA x1 ) Clint Gresham SPTRina Baker, DISEASE CONTROL INSPECTOR * Oren Adams MD - 03/02/2019 9:21 [...] []Injected [x]Non-Injected / Pinnae []Normal []Other/ Dentitian [][place] Teeth []Dentures Oral Mucosa [][place] [x]Moist []Dry/ Oral ETT []Present [x]Absent Neck: [...] [x]Absent/ [place] ([]RUE []RLE []LUE []LLE) Neurologic: [place] []Yes [x]No Corneal reflexes []Present []Absent / [...] ABG: Recent Labs 02/27/19 1545 PHART 7.274* [id number] 46.0* PO2ART 270.6* N3NOEUQT 98.8 CBC: Recent Labs 03/01/19 0015 03/02/19 [...] Portable Ordering Physician GRANT TAYLOR Accession Number [id number] CPT4 Codes 12434 () Reason For Exam sob Report CLINICAL INFORMATION: Shortness of breath. Status post open heart surgery. CHEST X-RAY, PORTABLE, 0537 hours: An AP portable view is compared to the prior examination of previous day. There is no change in the mediastinal or left lower hemithorax chest tubes or right internal jugular Anderson-Jose introducer sheath. There is stable slightly limited [...] avoid intravascular fluid depletion Case discussed with FRAMER from [facility], (Minoo) Critical care will sign [...] minutes so far today. * Minoo Encinas, HOIST OPERATOR - TONE ARTIST APPRENTICE - 03/02/2019 4:05 AM EST Cardiothoracic Surgery [...] will hold off for now. EF: 45% [facility]; intraop DONNELL pending-02/27 POD # 3 [...] with home health Planned Disposition: patient from [facility]; home when medically stable [x] Home [...] of Arthritis, Blood circulation, collateral, CAD in [place] artery, Diabetes mellitus (HCC), HFrEF (heart failure with reduced ejection fraction) ([facility]), and Hypertension. 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 Goals and/or treatment plan was established in collaboration with patient/family/other representatives. Heather Zhang OTR/L * Jos Baker, DISEASE CONTROL INSPECTOR - 03/01/2019 1:48 PM EST Physical Therapy Facility/Department: [facility] Daily Treatment Note NAME: [...] of Arthritis, Blood circulation, collateral, CAD in [place] artery, Diabetes mellitus (HCC), HFrEF (heart failure [...] on own throughout day. G-Code OutComes Score [facility] Score [facility] Inpatient Mobility Raw Score : 15 (03/01/191346) [facility] Inpatient T-Scale Score : 39.45 (03/01/191346) [...] Conrad MD - 03/01/2019 10:53 AM EST [facility] [address] [place] [address] Dept: [phone] Loc: [phone] Visit Date: 03/01/2019 HPI: Christy Francis is [...] Date Arthritis Blood circulation, collateral CAD in [place] artery 02/22/2019 Diabetes mellitus (HCC) HFrEF (heart [...] 25 mg Oral BID Apr DIANA Moise JAWBONE PULLER 25 mg at 856 pantoprazole (PROTONIX) tablet 40 mg 40 mg Oral QAM AC Apr DIANA Moise - JAWBONE PULLER 40 mg at 03/01/19 0709 FLUoxetine (PROZAC) capsule 20 mg 20 mg Oral Daily Apr DIANA Moise JAWBONE PULLER 20 mg at 03/01/19 0856 0.45 % sodium chloride infusion Intravenous Continuous Grant Taylro MD 20 mL/hr at 02/28/19 0730 sodium [...] 4 Units 4 Units Subcutaneous PRN Grant aTylor MD4 Units at 02/28/197 propylene glycol-glycerin (artificial [...] Assessment: Type 2 DM with hyperglycemia with press tender long goods insulin use s/p cabg 02/27 Will likely [...] Conrad MD * Minoo Encinas APRN - TONE ARTIST APPRENTICE - 03/01/2019 9:51 AM EST Cardiothoracic Surgery [...] []Injected [x]Non-Injected / Pinnae []Normal []Other/ Dentitian [][place] Teeth []Dentures Oral Mucosa [][place] [x]Moist []Dry/ Oral ETT []Present [x]Absent Neck: [...] [x]Absent/ [place] ([]RUE []RLE []LUE []LLE) Neurologic: [place] []Yes [x]No Corneal reflexes []Present []Absent / [...] ABG: Recent Labs 02/27/19 1545 PHART 7.274* [id number] 46.0* PO2ART 270.6* [id number] 98.8 CBC: Recent Labs 02/28/19 0404 03/01/19 [...] Portable Ordering Physician GRANT TAYLOR Accession Number [id number] CPT4 Codes 30857 () Reason For Exam sob Report CLINICAL INFORMATION: Shortness of breath. Status post open heart surgery. CHEST X-RAY, PORTABLE, 0537 hours: An AP portable view is compared to the prior examination of previous day. There is no change in the mediastinal or left lower hemithorax chest tubes or right internal jugular Anderson-Jose introducer sheath. There is stable slightly limited [...] far today. * Minoo Encinas APRN - TONE ARTIST APPRENTICE - 03/01/2019 4:54 AM EST Cardiothoracic Surgery [...] Date 03/01/19 0000 - 03/01/19 2359 Shift 9114-1458 9925-8196 3632-0930 24 Hour Total INTAKE Shift Total(mL/kg) OUTPUT [...] this morning may increase BB. EF: 45% [facility]; intraop DONNELL pending-02/27 POD # 2 [...] with home health Planned Disposition: patient from [facility]; home when medically stable [x] Home [...] mg Oral Daily Active Problems: CAD in [place] artery Diabetes mellitus (HCC) Hypertension HFrEF (heart failure with reduced ejection fraction) ([facility]) Resolved Problems: * No resolved hospital [...] SR-ST 90-120s DONNELL: In process Last Echo: [facility] LVEF 45%. Mild MAC with mild MR Last stress test: [facility] NST Stress Induced Ischemia involving portions [...] left. 8. Dispo - Pt lives in [place] and states she intends to follow up [...] up weekly Nutrition Assessment: Pt presents from [place] for evaluation for PCI vs CABG after presenting to [place] ED with chest pressure and having abnormal [...] High Nutrient Needs: Estimated Daily Total Kcal: 6476-7371 Estimated Daily Protein (g): 48-57 Estimated Daily [...] Asaf=19. Chest tubex3. Labs noted: ^BUN-25, ^potassium-7.0-->6.7, [id number]-[id number], HgA1C on 02/25-10.3% Wound Type: Surgical Wound [...] confirm weight change, will continue to monitor [place] Body Wt: 105 lb (47.6 kg), % [place] Body 168% BMI Classification: BMI 30.0 - [...] 12:03 PM EST Physical Therapy Facility/Department: [facility] Initial Assessment NAME: Christy Francis : 1950 Date of Service: 02/28/2019 Discharge Recommendations: Home independently Assessment Body structures, Functions, Activity limitations: Decreased strength;Decreased endurance;Decreased functional mobility ;Decreased safe awareness;Decreased balance Assessment: Pt admitted for Pod#1 CABG x 3. Pt DISEASE CONTROL INSPECTOR was living alone independently. 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 Goals and/or treatment plan was established in collaboration with patient/family/other (specify). Mil Reddy PT * Liz Diaz, HOIST OPERATOR - TONE ARTIST APPRENTICE - 02/28/2019 11:20 AM EST ENDOCRINOLOGY PROGRESS NOTE Patient: Christy Francis Unit/Bed:[id number]/[id number] Date of : 1950 Admit date: 02/22/2019 [...] Assessment: Type 2 DM with hyperglycemia with press tender long goods insulin use Lab Results Component Value Date LABA1C 10.3 (H) 02/25/2019 Multivessel CAD with Angina - [facility] on 02/22 concerning for multivessel disease - S/p CABG yesterday Plan: As outpatient prior to this admission: Boat Motor Mechanic: None Diabetes Medications/regimen: Metformin 500 mg daily [...] []Injected [x]Non-Injected Pinnae [x]Normal []Other Oral Mucosa [x][place] [x]Moist []Dry Oral ETT []Present [x]Absent Neck: [...] [x]Absent [place] ([x]RUE [x]RLE [x]LUE [x]LLE) Neurologic: [place] []Yes [x]No Corneal reflexes []Present []Absent Plantar [...] prophylaxis Patient Active Problem List: CAD in [place] artery Diabetes mellitus (HCC) Hypertension HFrEF (heart failure with reduced ejection fraction) ([facility]) CHANTELL ÁLVAREZ MD * Lukas Moise [...] I/O: Date 02/28/19 - 02/28/19 2359 Shift 9579-6162 9263-5733 7542-9276 24 Hour Total INTAKE I.V.(mL/kg/hr) 2220(3.5) 2220 [...] LIQUID; Problem List: Active Problems: CAD in [place] artery Diabetes mellitus (HCC) Hypertension HFrEF (heart failure with reduced ejection fraction) ([facility]) Resolved Problems: * No resolved hospital [...] - none to date * RoberthAlma ríos, LICENSED LOAN OFFICER - 02/27/2019 10:06 PM EST The patient [...] EST Hospitalist Progress Note 02/27/2019 10:49 AM [phone]: Please page me for patient care issues. [phone]: Please page IMS night Hospitalist for any [...] of Hospitalist Medicine Inpatient Medical Services PAGER: [phone] * Sixto Salamanca MD - 02/26/2019 1:31 [...] (H) 02/25/2019 Multivessel CAD with Angina - [facility] on 02/22 concerning for multivessel disease - Planning for possible CABG on Wednesday Plan: As outpatient prior to this admission: Boat Motor Mechanic: None Diabetes Medications/regimen: Metformin 500 mg daily [...] after discharge * Ronda Carmona, DIANA - JAWBONE PULLER - 02/26/2019 11:23 AM EST Cardiothoracic Surgery Progress Note 02/26/2019 Subjective: Admit Date: 02/22/2019 Interval History: Transferred from [place](see consult note) Multivessel CAD plan for CABG [...] I/O: Date 02/26/19 0000 - 02/26/192358 Shift 3730-9812 9165-2522 0785-4444 24 Hour Total INTAKE P.O. 240 240 [...] Specified Problem List: Active Problems: CAD in [place] artery Diabetes mellitus (HCC) Hypertension HFrEF (heart failure with reduced ejection fraction) ([facility]) Resolved Problems: * No resolved hospital [...] tablet, 1 tablet,Oral, Q12H PRN, Ronda Carmona, HOIST OPERATOR - JAWBONE PULLER, 1 tablet at 02/25/19 1613 insulin glargine [...] (H) 02/25/2019 Multivessel CAD with Angina - [facility] on 02/22 concerning for multivessel disease - Planning for possible CABG on Wednesday Plan: As outpatient prior to this admission: Boat Motor Mechanic: None Diabetes Medications/regimen: Metformin 500 mg daily [...] Follow up as outpatient after discharge: With TONE ARTIST APPRENTICE Jolynn Stewart in 2-4 weeks after discharge * Ronda Carmona, HOIST OPERATOR - JAWBONE PULLER - 02/25/2019 10:52 AM EST Cardiothoracic Surgery Progress Note 02/25/2019 Subjective: Admit Date: 02/22/2019 Interval History: Transferred from [place](see consult note) Multivessel CAD plan for CABG [...] I/O: Date 02/25/19 - 02/25/19 2359 Shift 2370-1579 5274-6717 5609-5595 24 Hour Total INTAKE P.O. 200 300 [...] CONTROL; Problem List: Active Problems: CAD in [place] artery Diabetes mellitus (HCC) Hypertension HFrEF (heart failure with reduced ejection fraction) ([facility]) Resolved Problems: * No resolved hospital [...] TBD Jayson Metzger MD * Lukas Moise, HOIST OPERATOR - JAWBONE PULLER - 02/24/2019 2:54 PM EST Cardiothoracic Surgery Progress Note 02/24/2019 Subjective: Admit Date: 02/22/2019 Interval History: Transferred from [place](see consult note) Multivessel CAD plan for CABG [...] Date 02/24/19 0000 - 02/24/19 2359 Shift 2467-8287 7326-0419 3602-8886 24 Hour Total INTAKE P.O. 446 860 2311 Shift Total(mL/kg) 400(5) 720(9) 1120(14) OUTPUT Urine(mL/kg/hr) [...] CONTROL; Problem List: Active Problems: CAD in [place] artery Diabetes mellitus (HCC) Hypertension HFrEF (heart failure with reduced ejection fraction) ([facility]) Resolved Problems: * No resolved hospital [...] Date 02/24/19 0000 - 02/24/19 2359 Shift 1452-4088 4408-6366 5172-9504 24 Hour Total INTAKE P.O.(mL/kg/hr) 400(0.6) 400 [...] neurologic deficits. Assessment Active Problems: CAD in [place] artery Diabetes mellitus (HCC) Hypertension HFrEF (heart failure with reduced ejection fraction) ([facility]) Resolved Problems: * No resolved hospital [...] be monitored and followed by the diet nitriles lab technician. Keren Banks DT * Mil Pettit MD - 02/23/2019 9:52 AM EST Hospitalist Progress Note 02/23/2019 9:52 AM Subjective: Admit Date: 02/22/2019 PCP: LIANET PETERS Interval History: pt feels ok Some sore throat No overnight issues. Deniesabdominal pain, nausea, vomiting, diarrhea, constipation, fevers, or chills. DIET CARB CONTROL; Date 02/23/19 0000 - 02/23/19 2359 Shift 3992-8050 2138-5702 3790-9623 24 Hour Total INTAKE Shift Total(mL/kg) OUTPUT [...] neurologic deficits. Assessment Active Problems: CAD in [place] artery Diabetes mellitus (HCC) Hypertension HFrEF (heart failure with reduced ejection fraction) ([facility]) Resolved Problems: * No resolved hospital problems. * Await CTS and cards review of images, surgical planning Increase insulin Supportive care otherwise See orders, continue POC Advance Directive: Full Code Suzan Trevino Hospitalist documented in this encounter Assessments Diagnosis CAD in [place] artery- Primary Coronary atherosclerosis of [place] coronary artery S/P CABG x 3 Postsurgical [...] FoundDocuments on File Type Date Recorded Patient Roofer Metal Expl anation Advance Directives and Living Will Power of Feeder Operator Automatic Latest Code Status on File Code Status Date Activated Date Inactivated Comments Full Code 02/27/2019 4:35 PM Full Code 02/22/2019 3:10 PM 02/27/2019 4:35 PM Advance Directive Response Recorded Date/ Time Advance Directives Yes May 8:25am Living Will Yes June 03 8:25am Power of Feeder Operator Automatic Yes June 03, 2021 8:25am Advance Directive Response Recorded Date/ Time Advance Directives Yes May 8:25am Living Will No March 29 5:45pm Power of Feeder Operator Automatic No March 29, 2022 5:45pm Advance Directive Response Recorded Date/ Time Advance Directives Yes May 9:25am Living Will No March 29 6:45pm Power of Feeder Operator Automatic No March 29, 2022 6:45pm Advance Directive Response Recorded Date/ Time Advance Directives Yes May 9:25am Advance Directive Response Recorded Date/ Time Living Will No October 01, 2023 2:53pm Do you have a Healthcare Power of Feeder Operator Automatic? No October 01, 2023 2:53pm Advance Directives Yes May 9:25am Advance Directive Response Recorded Date/ Time Living Will No October 01, 2023 2:53pm Do you have a Healthcare Pow er of Feeder Operator Automatic? No October 01, 2023 2:53pm Do you have a Healthcare Pow er of Feeder Operator Automatic? Yes January 07, 2025 4:04pm Name of Medical Power of Feeder Operator Automatic Lynda Francis, [id number] January 07, 2025 4:04p m Advance Directives [...] neuropathy December 9:20am [facility]per[facility]20[facility] Chest pain January [...] section and content) DATE CREATED AUTHOR 05/04/2019 [facility] tem DATE CREATED AUTHOR AUTHOR'S ORGANIZ ATION 01/20/2025 [place] [facility] Goals (unrecognized section and content) Goals [...] DO Primary Care Provider Active Charlie Johnson FRAMER, FRAMER-C Attending Provider, Referring Pro vider Active Team [...] Provider, Referring P rovider Active Kaley Son FRAMER, FRAMER-C Attending Provider Active Team Status: Inactive Member [...] DO Primary Care Provider Active Rand Mckeon FRAMER-C Attending Provider, Referring Prov ider Active Team Status: Inactive Member Role Status Dates Dr. Marielos Perla DO Primary Care Provider Active Start: June 05, 2024 End: June 05, 2024 Dr. Marielos Perla DO Referring Provider Active St art: June 05, 2024 End: June 05, 2024 Charlie Johnson NP, FRAMER-C Attending Provider Active S tart: June 05, 2024 End: June 05, 2024 Team Status: Inactive Member Role Status Dates Dr. Marielos Perla DO Primary Care Provider Active Start: September 18, 2024 End: September 18, 2024 Rand Mckeon FRAMER-C Attending Provider Active St art: September 18, 2024 End: September 18, 2024 Rand Mckeon FRAMER-C Referring Provider Active St art: September 18, 2024 End: September 18, 2024 Team Status: Active Member Role/Relationship Status Dates Dr. Marielos Perla DO Primary Care Provider Active Team Status: Inactive Member Role/Relationship Status Dates Dr. Marielos Perla DO Primary Care Provider Active Start: September 18, 2024 End: September 18, 2024 Rand Mckeon FRAMER-C Attending Provider Active St art: September 18, 2024 End: September 18, 2024 Rand Mckeon FRAMER-C Referring Provider Active St art: September 18, [...] 08, 2025 [facility]. [facility] Active Start: January 08, 2025 [...] 08, 2025 Dr. [facility] Active Start: January 08, 2025 [...] 2025 End: January 10, 2025 Lamar Olivera FRAMER, FRAMER-C Attending physician Active Start: January 10, 2025 End: January 10, 2025 Team Status: Inactive Member Role/Relationship Status Dates Dr. Marielos Perla DO Primary care physician Active Start: January 10, 2025 End: January 10, 2025 Lamar Olivera FRAMER, FRAMER-C Attending physician Active Start: January 10, 2025 [...] End: January 10, 2025 Lamar Olivera NP, FRAMER-C Attending physician Active Start: January 10, 2025 End: January 10, 2025 Team Status: Inactive Member Role/Relationship Status Dates Dr. Marielos Perla DO Primary care physician Active Start: January 10, 2025 End: January 10, 2025 Lamar Olivera NP, FRAMER-C Attending physician Active Start: January 10, 2025 [...] BE BASED ON THE PRIMARY CLINICAL RECORDS. [facility]. provides no warranty or guarantee of the accuracy or completeness of information in this document.
== END | disposition home or self-care (01) ==
LOC: CT 07:03
PROVIDERS: PCP Family Medicine; Referring Provider Physician Assistant; Visit Provider Physician Assistant
DX: I74.3 Embolism and thrombosis of arteries of the lower extremities (principal); I73.9 Peripheral vascular disease, unspecified
CPT/HCPCS: 75635; Q9967

== ENCOUNTER → 2025-01-29 | Outpatient (CLI) | payer MEDICARE, SELFPAY ==
[2019-11-14 08:38] VITALS: BMI 31.6
== END | disposition home or self-care (01) ==
PROVIDERS: PCP Family Medicine; Referring Provider Nurse Practitioner Women's Health; Visit Provider Nurse Practitioner Women's Health
DX: Z12.31 Encounter for screening mammogram for malignant neoplasm of breast (principal)
CPT/HCPCS: 77063; 77067

== ENCOUNTER → 2025-01-30 | Outpatient (CLI) | payer MEDICARE, SELFPAY ==
[2019-11-14 08:38] VITALS: BMI 31.6
[2025-01-30 11:01] LABS: AST(SGOT) 17 U/L (<=31); Alanine Aminotransfer ALT/SGPT 9 U/L (<=34); Albumin, Serum 3.9 g/dL (3.4-4.8); Alkaline Phosphatase 98 U/L (35-104); Bilirubin, Direct 0.12 mg/dL (0.00-0.30); Cholesterol 134 mg/dL (<=200); Globulin 2.8 g/dL (2.2-4.2); Low Density Lipoprotein Calc. 55 mg/dL; Triglycerides 150 mg/dL; Very Low Density Lipoprotein 30 mg/dL (5-40); cholesterol:hdl ratio screen 2.71
== END | disposition home or self-care (01) ==
LOC: LAB 09:57
PROVIDERS: PCP Family Medicine; Referring Provider Student in an Organized Health Care Education/Training Program; Visit Provider Student in an Organized Health Care Education/Training Program
DX: I25.10 Atherosclerotic heart disease of native coronary artery without angina pectoris (principal)
CPT/HCPCS: 36415; 80061; 80076

== ENCOUNTER → 2025-02-13 | Outpatient (CLI) | payer MEDICARE, SELFPAY ==
[2019-11-14 08:38] VITALS: BMI 31.6
--- NOTE | 2025-02-13 11:25 | MRI_ITS ---
PROCEDURE: MRI/Spine Lumbar (Routine)
--- NOTE | 2025-02-13 11:33 | US_ITS ---
PROCEDURE: US/Pelvic w/ Transvaginal
== END | disposition home or self-care (01) ==
LOC: US 11:24
PROVIDERS: PCP Family Medicine; Referring Provider Nurse Practitioner Women's Health; Visit Provider Nurse Practitioner Women's Health
DX: M48.062 Spinal stenosis, lumbar region with neurogenic claudication (principal); M51.362 Other intervertebral disc degeneration, lumbar region with discogenic back pain and lower extremity pain; R93.89 Abnormal findings on diagnostic imaging of other specified body structures; M43.16 Spondylolisthesis, lumbar region; Z78.0 Asymptomatic menopausal state
CPT/HCPCS: 72148; 76830; 76856

== ENCOUNTER → 2025-02-14 | Outpatient (CLI) | payer MEDICARE, SELFPAY ==
[2019-11-14 08:38] VITALS: BMI 31.6
[2025-02-14 17:41] LABS: Creatinine, Urine (random) 68.50 mg/dL (28.00-217.00); Microalbumin,Random Urine 239.0 mg/L (<20 mg/L)
== END | disposition home or self-care (01) ==
LOC: LABSPEC 14:46
PROVIDERS: PCP Family Medicine; Referring Provider Family Medicine; Visit Provider Family Medicine
DX: E11.9 Type 2 diabetes mellitus without complications (principal)
CPT/HCPCS: 82043; 82570

== ENCOUNTER → 2025-03-08 | Outpatient (CLI) | payer MEDICARE, SELFPAY ==
[2019-11-14 08:38] VITALS: BMI 31.6
--- NOTE | 2025-03-08 13:28 | ECHOCS_ITS ---
Reason For Study Reason For Study: Hypertrophic CMP Procedure This was a 2D Doppler, Color Flow transthoracic echocardiogram. Contrast injection was performed. Exam performed in department. Left Ventricle Normal LV size. The left ventricular ejection fraction is 55 %. No regional wall motion abnormalities noted. Right Ventricle Normal RV size. Normal systolic function. Atria Normal left atrium. Normal right atrium. Mitral Valve Normal mitral valve. Mild (1+) eccentric mitral valve insufficiency. Tricuspid Valve Normal tricuspid valve. Aortic Valve Normal aortic valve. Mild (1+) aortic valve insufficiency. Pulmonic Valve Normal pulmonic valve. Great Vessels Normal aortic root. The pulmonary artery is normal size. Inferior vena cava collapse with respiration. Pericardium/Pleural No pericardial effusion. Medication 22 gauge I.V. with prn adaptor inserted into right arm. Diluted definity 1ml given slow IV push to enhance endocardial definition. MMode/2D Measurements & Calculations LVIDd: 4.9 cm IVSd: 1.2 cm Ao root diam: 3.1 cm LVIDs: 3.4 cm LVPWd: 1.1 cm RVDd: 3.4 cm FS: 30.3 % LAV(MOD-bp): 37.9 ml LVAd ap4: 29.8 cm2 LVAd ap2: 30.9 cm2 LAV(MOD-bp) Indexed: 21.4 ml/m2 LVLd ap4: 7.7 cm LVLd ap2: 7.9 cm LAV(MOD-sp2): 37.9 ml EDV(MOD-sp4): 94.0 ml EDV(MOD-sp2): 100.1 ml LAV(MOD-sp4): 37.0 ml EDV(sp4-el): 97.5 ml EDV(sp2-el): 103.0 ml LVAs ap4: 18.6 cm2 LVAs ap2: 21.0 cm2 LVLs ap4: 6.2 cm LVLs ap2: 6.3 cm ESV(MOD-sp4): 46.1 ml ESV(MOD-sp2): 57.8 ml ESV(sp4-el): 47.3 ml ESV(sp2-el): 59.5 ml EF(MOD-sp4): 51.0 % EF(MOD-sp2): 42.3 % EF(sp4-el): 51.4 % SV(MOD-sp4): 47.9 ml SV(MOD-sp2): 42.3 ml SV(sp4-el): 50.2 ml SI(MOD-sp4): 27.1 ml/m2 SI(MOD-sp2): 23.9 ml/m2 LA A4 area: 15.6 cm2 LA dimension(2D): 4.3 cm RA A4 area: 11.6 cm2 TAPSE: 1.0 cm Time Measurements MV dec time: 0.25 sec Doppler Measurements & Calculations MV E max wild: 63.4 cm/sec Lat Peak E' Wild: 10.7 cm/sec Med Peak E' Wild: 5.9 cm/sec MV A max wild: 106.0 cm/sec E/E' lat: 5.9 E/E' med: 10.7 MV E/A: 0.60 MV V2 max: 107.0 cm/sec MV P1/2t max wild: 74.2 cm/sec Ao V2 max: 147.2 cm/sec MV max P.6 mmHg MV P1/2t: 85.3 msec Ao max P.7 mmHg MV V2 mean: 54.0 cm/sec MV dec slope: 254.8 cm/sec2 Ao V2 mean: 101.7 cm/sec MV mean P.4 mmHg MVA(P1/2t): 2.6 cm2 Ao mean P.7 mmHg MV V2 VTI: 26.8 cm Ao V2 VTI: 29.3 cm AV (velocity ratio): 0.63 AI max wild: 413.5 cm/sec LV V1 max: 91.4 cm/sec MR max wild: 490.1 cm/sec AI max P.4 mmHg LV V1 max P.3 mmHg MR max P.1 mmHg LV V1 mean P.7 mmHg AI dec slope: 206.0 cm/sec2 LV V1 mean: 60.8 cm/sec AI P1/2t: 588.0 msec LV V1 VTI: 18.4 cm PA V2 max: 98.5 cm/sec PA V2 mean: 59.2 cm/sec ECHO/Echo Complete W/ Contrast Interpretation Summary The left ventricular ejection fraction is 55 %. Normal LV size. No regional wall motion abnormalities noted. Mild (1+) eccentric mitral valve insufficiency. Contrast injection was performed. Ordering Physician: Jennifer Bailey Referring Physician: Jennifer Bailey Performed By: Matthew Denton RCS
--- OUTSIDE RECORDS SUMMARY | 2025-03-08 18:52 | XMS RPT_ITS | CCD ---
Author Organization [facility] Care Team Providers Care Category Consultant Name Role Phone LorraineLianet Charis Primary Care Provider [phone] Dr. Marielos Perla Primary Care Provider Dr. Marielos Perla Referring Provider 1([facility])[phone] MD Bruce Dubon Attending Provider [phone] Marielos Perla Primary Care Provider 1([facility])[phone] Dr. Marielos Perla Referring Provider 1([facility])[phone] Huy PUMP TECHNICIAN, PUMP TECHNICIAN-C Kaley Attending Provider SKYLER Thakkar Attending Provider Dr. Marielos Prela DO Primary Care Provider 1([facility])[phone] Dr. Marielos Perla DO Referring Provider 1([facility])[phone] Charlie Mcknight Attending Provider Mike PUMP TECHNICIAN-CRand Attending Provider [phone] Mike PUMP TECHNICIAN-CRand Referring Provider 1([facility])[phone] Marielos Perla DO Primary Care Provider [phone] Dr. Marielos Perla DO Referring Provider [phone] Jennifer Thakkar Attending Provider [phone] Jennifer Thakkar Referring Provider Dr. Marielos Perla DO Attending Provider [phone] Ava Walker Attending Provider 1([facility])-[phone] Ava Walker Referring Provider Brian ROMERO, Dr. Rosenthal Attending Provider Pan LYLE, Dr. Arceo Primary Care Physician Mike PUMP TECHNICIAN-CRand Attending Physician [phone] Jennifer Thakkar Attending Physician Pan LYLE, Dr. [...] Oren LYLE, Dr. Zapien Nurse Practitioner Jarod PUMP TECHNICIAN-CLamar Attending Physician Pan LYLE, Dr. Arceo Primary Care Physician Lidia Fleming Attending Physician Monica ROMERO, Dr. Patel Attending Physician Monica ROMERO, Dr. Patel Referring Provider Jarod PUMP TECHNICIAN-CLamar Referring Provider Akin Reynolds Attending Physician Akin Reynolds Referring Provider Jorge Anderson Consulting Unavailable Laurenceam, Maritza Leticia Admitting Unavailable Rupali Lott Attending Unavailable Malys, Marielos Primary Care Unavailable Koram, Maritza Leticia Consulting Unavailable Jennifer Thakkar Attending Unavail able Jennifer Thakkar Referring Unavail able Malys, Marielos Primary Care Unavailable Malys, Marielos Attending Unavailable Malys, Marielos Referring Unavailable Malys, Marielos Primary Care Unavailable [facility] Charlie LOCKHART Attending Unavailable Malys, Marielos Referring Unavailable Malys, Marielos Primary Care Unavailable Malys, Marielos Referring Unavailable Lynn HOLLAND, Jennifer Wright Attending Unavail able Malys, Marielos Primary Care Unavailable Young, Ava Attending Unavailable Malys, Marielos Referring Unavailable Malys, Marielos Primary Care Unavailable Jarod PUMP TECHNICIAN, Lamar Attending Unavailable Malys, Marielos Referring Unavailable Malys, Marielos Primary Care Unavailable Mike, Rand Attending Unavailable Mike, Rand Referring Unavailable Malys, Marielos Primary Care Unavailable Young, Ava Attending Unavailable Young, Ava Referring Unavailable Malys, Marielos Primary Care Unavailable Young, Ava Attending Unavailable Young, Ava Referring Unavailable Malys, Marielos Primary Care Unavailable Young, Ava Attending Unavailable Malys, Marielos Referring Unavailable Malys, Marielos Primary Care Unavailable Jack, Lidia Attending Unavailable Malys, Marielos Referring Unavailable Malys, Marielos Primary Care Unavailable Brian, Grant Attending Unavailable Malys, Marielos Referring Unavailable Malys, Marielos Primary Care Unavailable Demiter, Akin Attending Unavailable Malys, Marielos Referring Unavailable Malys, Marielos Primary Care Unavailable Monica, Jorge Consulting Unavailable Koram, Maritza Leticia Admitting Unavailable Malys, Marielos Primary Care Unavailable Oren, Rupali Attending Unavailable Koram, Maritza Leticia Consulting Unavailable Oren, Rupali Consulting Unavailable Jarod PUMP TECHNICIAN, Lamar Attending Unavailable Lancaster PUMP TECHNICIAN, Lamar Referring Unavailable Malys, Marielos Primary Care Unavailable [place] PUMP TECHNICIAN, Lamar Attending Unavailable Malys, Marielos Primary Care Unavailable Malys, Marielos Referring Unavailable Malys, Marielos Primary Care Unavailable Malys, Marielos Attending Unavailable Demiter, Akin Attending Unavailable Demiter, Akin Referring Unavailable Malys, Marielos Primary Care Unavailable Jack, Lidia Consulting Unavailable Lancaster PUMP TECHNICIAN, Lamar Attending Unavailable Jarod PUMP TECHNICIAN, Lamar Referring Unavailable Malys, Marielos Primary Care Unavailable Monica, Irwin Attending Unavailable Ramsay, Grant Attending Unavailable Young, Ava Referring Unavailable Malys, Marielos Primary Care Unavailable Koram, Maritza Leticia Attending Unavailable Monica, Irwin Attending Unavailable Malys, Marielos Primary Care Unavailable Jack, Lidia Attending Unavailable Malys, Marielos Primary Care Unavailable Malys, Marielos Referring Unavailable Charlie Johnson NP Attending Unavailable Malys, Marielos Referring Unavailable Malys, Marielos Primary Care Unavailable Jennifer Thakkar Referring Unavail able Jennifer Thakkar Attending Unavail able Malys, Marielos Primary Care Unavailable Jennifer Thakkar Referring Unavail able Jennifer Thakkar Attending Unavail able Malys, Marielos Primary Care Unavailable Yaa Stanford Attending Unavailable Malys, Marielos Primary Care Unavailable Allergies Allergy Classification Reported Allergen(s) Allergy Type Date of Onset Reaction(s) Facility (20 sources) ceFAZolin Drug Allergy 9 Hives, Shortness Of Breath [place], [place] (20 sources) Codeine Drug Allergy 9 Hives, Shortness Of Breath [place] (20 sources) Morphine Drug Allergy 9 Hives, Shortness Of Breath [place] (20 sources) Naloxone Drug Allergy 9 Hives, Shortness Of Breath [place] (20 sources) Pentazocine Drug Allergy 9 Hives, Shortness Of Breath [place] (20 sources) Acetaminophen Drug Allergy 2 Nausea [facility] (20 sources) atorvastatin Drug Allergy 2 Severe myalgias [facility] (20 sources) Pentazocine; Translations: [pentazocine lactate] Drug Allergy 2 Shortness of breath [facility] (1 source) Acetaminophen Drug Allergy 5 [facility] Repository (1 source) atorvastatin Drug Allergy 5 [facility] Repository (1 source) ceFAZolin Drug Allergy 5 [facility] Repository (1 source) Codeine Drug Allergy 5 [facility] Repository (1 source) Morphine Drug Allergy 5 [facility] Repository (1 source) Naloxone Drug Allergy 5 [facility] Repository (1 source) Pentazocine Drug Allergy 5 [facility] Repository Medications Current Medications Medication Drug Class(es) Dates Sig (Normalized) Sig (Original) acetaminophen 500 mg oral tablet (1 source) Start: 02-27-2019 take 500 mg by mouth every four hours as needed for pain, then take 4000 mg by mouth every twenty-four hours as needed for pain 500 mg, Oral, EVERY 4 HOURS PRN, Pain Mild (1-3), Fever, Fever >100.5 F (38 C), Starting Wed02/27/19 at 1635 Maximum dose of acetaminophen is 4000 mg from all sources in 24 hours. Post-op albuterol 0.833 mg/ml / ipratropium bromide 0.167 mg/ml inhalant solution (2 sources) Anticholinergic, beta2-Adrenergic Agonist Start: 03-02-2019 ipratropium-albuter ol (DUONEB) nebulizer solution 1 ampule Start: 02-27-2019 End: 02-28-2019 1 ampule, Inhalation, EVERY 4 HOURS WHILE AWAKE, First dose on Wed02/27/19 at 2000 allopurinol 300 mg oral tablet (15 sources) Xanthine Oxidase Inhibitor Start: 11-05-2023 take [...] 10:00am docusate sodium 50 mg / sennosides, mcc 8.6 mg oral tablet (2 sources) Start: [...] omeprazole 20 mg delayed release oral capsule (7 sources) Proton Pump Inhibitor Start: 01-07-2025 take 1 capsule by mouth once daily 2 ml ondansetron 2 mg/ml injection (1 source) Serotonin-3 Receptor Antagonist Start: 02-27-2019 4 mg, Intravenous, EVERY 8 HOURS PRN, Nausea, Starting Wed02/27/19 at 1635, Post-op 12 hr ranolazine 500 mg extended release oral tablet (8 sources) Anti-anginal Start: 01-08-2025 End: 2025 take 1 tablet by mouth twice daily Tirzepatide (8 sources) Start: 11-02-2024 Start: 11-02-2024 Tirzepatide (Adriana leonardoro) 10 mg/0.5 mL pen injector Active 10 [...] 5-325 MG per tablet Indications: CAD in [place] artery , S/P CABG x 3 Take [...] 75 mg colchicine 0.6 mg oral tablet (20 sources) Start: 08-20-2022 End: 11-05-2023 take 1 tablet by mouth once daily Colchicine 0.6 mg tablet Discontinued 0.6 mg PO DAILY August 20, 2022 12:00am November 05, 2023 11:35am 12 hr dextromethorphan hydrobromide 30 mg / guaiFENesin 600 mg extended release oral tablet (1 source) Uncompetitive S-pxeqdu-C-aspart[place] te Receptor Antagonist, Sigma-1 Agonist Start: 02-25-2019 End: 02-27-2019 dextromethorphan -guaiFENesin (MUCINEX DM) 30-600 MG per extended release tablet 1 tablet doxycycline monohydrate 100 mg oral capsule (15 sources) Tetracycline-class Drug Start: 10-01-2023 End: 11-05-2023 [...] interventions based on BGT and call the Road Sign Installer. o Maximum insulin infusion drip rate may not exceed 30 units/hr; Insulin drip may NOT be discontinued unless approved by Road Sign Installer. Discontinue all subcutaneous Insulin orders (if patient [...] Start: 03-28-2019 take 1 capsule by mo uth once daily multivitamin capsule Active 1 CAP PO DAILY March 28, 2019 1:00am Start: 03-28-2019 take 1 capsule by mo uth once daily multivitamin capsule Active 1 CAP PO DAILY March 28, 2019 12:00am Multivitamin capsule (15 sources) Start: 03-28-2019 End: 08-20-2022 Multivitamin capsule [...] March 28, 2019 2:41pm polyethylene glycol 3350 [id number] mg powder for oral solution (20 sources) [...] 1 TABLET BY MOUTH EVERY DAY sennosides, mcc 8.6 mg oral tablet (20 sources) Start: [...] 20 ml/hr to SP(introducer) and WT on Bamberg Jose Catheter; once Bamberg discontinued run at 20 ml/hr through SP(introducer) Post-op Start: 02-22-2019 End: 02-27-2019 10 mL, Intravenous, EVERY 12 HOURS SCHEDULED (2 times per day), First dose on Wed02/27/19 at 2100, Post-op Tirzepatide (8 sources) Start: 06-05-2024 End: 11-02-2024 Tirzepatide (Mounjaro) [...] Episodic Chronic obstructive pulmonary disease and bronchiectasis (15 sources) Bronchitis; Translations: [Bronchitis, not specified as [...] heart disease (20 sources) Coronary arteriosclerosis in [place] artery; Translations: [Coronary atherosclerosis] Onset: 02-22-2019 03-03-2019 Chronic Comment on above: CABG x3 with FOLEY to LAD, SVG to OM 2, and SVG to PDA of RCA on 02/27/[address] Taylor at [facility]; Coronary atherosclerosis and other heart disease (9 sources) History of coronary artery bypass grafting; Translations: [Presence of aortocoronary bypass graft] Onset: 02-17-2019 03-03-2019 Episodic Diabetes mellitus without complication (20 sources) Type 2 diabetes mellitus; Translations: [Diabetes mellitus] Onset: 02-20-2025 02-23-2019 Chronic Disorders of lipid metabolism (20 [...] Onset: 01-19-2025 02-21-2019 Episodic Other acquired deformities (4 sources) Lumbar spondylolisthesis; Translations: [Spondylolisthesis, lumbar region] 01-18-2025 Episodic Other and ill-defined heart disease (12 sources) Left ventricular systolic dysfunction; Translations: [Other ill-defined heart diseases] 11-02-2024 Chronic Other and ill-defined heart disease (16 sources) Severe left ventricular systolic dysfunction; Translations: [Other ill-defined heart diseases] 11-02-2024 Chronic Other and ill-defined heart disease (2 sources) Left ventricular hypertrophy; Translations: [Cardiomegaly] 2025 Chronic Other and ill-defined heart disease (2 sources) Other ill-defined heart diseases; Translations: [Other ill-defined [...] cuff] 06-09-2022 Episodic Other connective tissue disease (17 sources) Tear of right rotator cuff; Translations: [...] conditions (not mental disorders or infectious disease) (15 sources) Endometrium thickened; Translations: [Abnormal findings on diagnostic imaging of other specified body structures] Onset: 01-10-2025 01-10-2025 Chronic Comment on above: 6.6mm. no vag bleedi ng. EMB pending Other screening for suspected conditions (not mental disorders or infectious disease) (20 sources) Cardiovascular stress test abnormal; Translations: [Abnormal result of other cardiovascular function study] Onset: 02-11-2025 02-21-2019 Episodic Ora-; endo-; and myocarditis; cardiomyopathy (except that caused by tuberculosis or sexually transmitted disease) (2 sources) Cardiomyopathy; Translations: [Cardiomyopathy, unspecified] 2025 Chronic Peripheral and visceral atherosclerosis (20 sources) Peripheral vascular disease, unspecified; Translations: [Peripheral arterial disease] Onset: 01-19-2025 03-28-2019 Chronic Comment on above: Right lower extremit y arterial occlusive disease consistent with right superficial femoral artery 01/09/2017; Right lower extremit y arterial occlusive disease consistent with right superficial femoral artery 01/09/2017 Skin and subcutaneous tissue infections (15 sources) Cellulitis; Translations: [Cellulitis, unspecified] 10-09-2023 Episodic Spondylosis; intervertebral disc disorders; other back problems (15 sources) Degeneration of lumbar intervertebral disc; Translations: [Degenerative disc disease (DDD) of lumbar region with discogenic back pain and leg pa] Chronic Spondylosis; intervertebral disc disorders; other back problems (7 sources) Spinal stenosis of lumbar region; Translations: [Spinal stenosis, lumbar region with neurogenic claudication] Onset: 09-23-2024 01-18-2025 Episodic Superficial injury; contusion (20 sources) Contusion of shoulder region; Translations: [Contusion of right shoulder, initial encounter] 04-06-2022 Episodic Unclassified (7 sources) G57.90 - Unspecified mononeuropathy of unspecified lower limb,M51.362 - Other intervertebral disc degeneration, lumbar region with discogenic back pain and lower extremity pain Past or Other Problems Problem Classification Problem Date Documented Date Episodic/Chronic Residual codes; unclassified (20 sources) History of [...] despite attempts with multiple coronary catheters; GRAFTS: FOLEY graft to the Mid LAD is patent [...] Facility Orthopedic Visit Reporton Orthopedic Visit Report [facility] [address] [place] [address] OFFICE VISIT Date of Service: 02/26/25 MR#: [id number] Acct: [id number] Name: CHRISTY FRANCIS Rep #: [id number] : 1950 Provider: SKYLER Vance Age/Sex: 75/F Location: [facility] Status: Signed Intake Vital Signs 02/14/25 14:55 Height 5 ft 2 in BP 109/63 Blood Pressure Location Lt brachial Position Sitting Respiration 16 Pulse 73 Pulse Source NIBP Temp 98.2 F Temp Source Temporal Pulse Oximetry (%) 95 Oxygen Delivery Method room air Intake Visit Reasons: LUMBAR SPINE Chief Complaint: Lumbar MRI Review Accompanied by: Self Is patient in pain?: Yes (lumbar spine ) Pain scale (1-10): 4 Allergies cefazolin Allergy (Verified 02/26/25 11:33) Shortness of breath codeine Allergy (Verified 02/26/25 11:33) Shortness of breath morphine Allergy (Verified 02/26/25 11:33) Other naloxone (Naloxone) Allergy (Verified 02/26/25 11:33) Shortness of breath pentazocine Allergy (Verified 02/26/25 11:33) Shortness of breath pentazocine lactate (From Talwin) Allergy (Verified 02/26/25 11:33) Shortness of breath atorvastatin Adverse Reaction (Severe, Verified 02/26/25 11:33) Severe myalgias acetaminophen (From Tylenol) Adverse Reaction (Verified 02/26/25 11:33) Nausea Medications ???Medication ???Instructions ???Recorded ???Confirmed ???Type aspirin 81 mg tablet,delayed 81 mg PO DAILY heart health 02/26/25 History release duloxetine 60 mg capsule,delayed 60 mg PO DAILY mental health 08/2002/26/25 History release allopurinol 300 mg tablet 300 mg PO BID gout 11/05/23 History cilostazol 100 mg tablet 100 mg PO BID anti platelet 02/26/25 History rosuvastatin 10 mg tablet See Rx Instructions .Route 4 02/26/25 Rx .COMPLEX cholesterol #90 TABLETS furosemide 40 mg tablet 40 mg PO DAILY diuretic #90 TABLET S 06/19/24 02/26/25 Rx insulin aspar prt-insulin aspart 20 unit subcut QAM diabetes 02/26/25 History 100 unit/mL (70-30) subcutaneous soln (Novolog Mix 70-30 U-100 Insuln) nitroglycerin 0.4 mg sublingual 0.4 mg sublingual Q5-15M PRN chest 11/02/24 02/26/25 Rx tablet pain #25 tabs tirzepatide 10 mg/0.5 mL 10 mg subcut .every week diabetes 11/02/24 02/26/25 History subcutaneous pen injector (May) isosorbide mononitrate 60 mg 60 mg PO BID heart 01/07/25 History tablet,extended release 24 hr omeprazole 20 mg capsule,delayed 20 mg PO DAILY reflux 01/07/2502/10 History release losartan 25 mg tablet 12.5 mg (1/2 x 25 mg) PO DAILY #15 01/08/25 02/26/25 Rx tabs metoprolol tartrate 50 mg tablet 75 mg (1.5 x 50 mg) PO BID blood 0 01/08/25 02/26/25 Rx pressure #180 tabs ranolazine 500 mg tablet,extended 500 mg PO BID #180 tabs 01/30/25 02/26/25 Rx release,12 hr Have you fallen in the past year?: No [facility] Medical History Severe left ventricular systolic dysfunction (LVSD) Palpitations Right rotator cuff tear Trigger finger of both hands Carpal tunnel syndrome on both sides FHx: cholecystectomy History of left heart catheterization (LHC) ( 06/03/21) Essential hypertension Mechanical loosening of prosthetic knee Atherosclerosis of [place] coronary artery of [place] heart without angina pectoris PAD (peripheral artery [...] the decisions made by me, SKYLER Vance 02/26/25 1129. Part of today???s visit was documented by Francine Prince RN, acting as scribe. CHRISTY FRANCIS is a 75 year old F here today for lumbar MRI Review. She complains of ongoing bilateral low back pain that extends into her bilateral legs. She states this is worse in the left leg and the pain will go down to her toes. She reports intermittent numbness and tingling into her legs. She denies recent inj (more content not included)... Normal [facility] MR/BMS.Son 02-14-2025 MR/BMS.JOHNNY [facility] [address] [place] [address] OFFICE VISIT Date of Service: 02/14/25 MR#: [id number] Acct: [id number] Name: CHRISTY FRANCIS Rep #: [id number] : 1950 Provider: Dr. Grant Torres MD Age/Sex: 75/F Location[facility] Status: Signed Intake Vital Signs 01/18/25 09:28 01/30/25 07:55 02/14/25 14:55 Height 5 ft 2 in 5 ft 2 in 5 ft 2 in Weight: 167 lb BMI 30.5 BP 131/75 H 109/63 Blood Pressure Location Lt brachial Lt brachial Position Sitting Sitting Respiration 18 16 Pulse 93 73 Pulse Source Monitor NIBP Temp 98.2 F Temp Source Temporal Pulse Oximetry (%) 96 95 Oxygen Delivery Method room air room air Intake Visit Reasons: DISCUSS RESULTS Boat Canvas Maker And Installer Required: No Accompanied by: Self Is patient in pain?: No Allergies cefazolin Allergy (Verified 02/14/25 14:54) Shortness of breath codeine Allergy (Verified 02/14/25 14:54) Shortness of breath morphine Allergy (Verified 02/14/25 14:54) Other naloxone (Naloxone) Allergy (Verified 02/14/25 14:54) Shortness of breath pentazocine Allergy (Verified 02/14/25 14:54) Shortness of breath pentazocine lactate (From Talwin) Allergy (Verified 02/14/25 14:54) Shortness of breath atorvastatin Adverse Reaction (Severe, Verified 02/14/25 14:54) Severe myalgias acetaminophen (From Tylenol) Adverse Reaction (Verified 02/14/25 14:54) Nausea Medications ???Medication ???Instructions ???Recorded ???Confirmed ???Type aspirin 81 mg tablet,delayed 81 mg PO DAILY heart health 02/14/25 History release duloxetine 60 mg capsule,delayed 60 mg PO DAILY mental health 08/2002/14/25 History release allopurinol 300 mg tablet 300 mg PO BID gout 11/05/23 History cilostazol 100 mg tablet 100 mg PO BID anti platelet 02/14/25 History rosuvastatin 10 mg tablet See Rx Instructions .Route 4 02/14/25 Rx .COMPLEX cholesterol #90 TABLETS furosemide 40 mg tablet 40 mg PO DAILY diuretic #90 TABLET S 06/19/24 02/14/25 Rx insulin aspar prt-insulin aspart 20 unit subcut QAM diabetes 02/14/25 History 100 unit/mL (70-30) subcutaneous soln (Novolog Mix 70-30 U-100 Insuln) nitroglycerin 0.4 mg sublingual 0.4 mg sublingual Q5-15M PRN chest 11/02/24 02/14/25 Rx tablet pain #25 tabs tirzepatide 10 mg/0.5 mL 10 mg subcut .every week diabetes 11/02/24 02/14/25 History subcutaneous pen injector (Mounjaro) isosorbide mononitrate 60 mg 60 mg PO BID heart 01/07/25 History tablet,extended release 24 hr omeprazole 20 mg capsule,delayed 20 mg PO DAILY reflux 01/07/25 History release losartan 25 mg tablet 12.5 mg (1/2 x 25 mg) PO DAILY #15 01/08/25 02/14/25 Rx tabs metoprolol tartrate 50 mg tablet 75 mg (1.5 x 50 mg) PO BID blood 0 01/08/25 02/14/25 Rx pressure #180 tabs ranolazine 500 mg tablet,extended 500 mg PO BID #180 tabs 01/30/25 02/14/25 Rx release,12 hr Have you fallen in the past year?: No PFSH Medical History Severe left ventricular systolic dysfunction (LVSD) Palpitations Right rotator cuff tear Trigger finger of both hands Carpal tunnel syndrome on both sides FHx: cholecystectomy History of left heart catheterization (LHC) ( 06/03/21) Essential hypertension Mechanical loosening of prosthetic knee Atherosclerosis of [place] coronary artery of [place] heart without angina pectoris PAD (peripheral artery disease) HLD (hyperlipidemia) Type II diabetes mellitus Surgical History History of cholecystectomy History of coronary artery bypass graft x 3 ( 02/27/19) History of prosthetic unicompartmental arthroplasty of left knee Family History Mother Heart disease Social History current occupational status: retired current occupation: Retired. [employer]. Smoking Status: Light Smoker (<10/day) alcohol intake: current alcohol intake frequency: holidays/special occasions only substance use type: does not use caffeine: Yes Type: coffee Number of servings: 3 do you feel safe at home: Yes additional social history: . HPI HPI HPI: CHRISTY FRANCIS, is a 75 F who presents to the office today for follow up of PAD, bilateral claudication with relative new development of left leg dragging when she walks. Her arterial studies have remained fairly stable over the past several years. Given change in symptoms a CTA was obtained to further device her disease burden and she was referred to [facility]. ROS General General: Yes weight change an (more content not included)... Normal [facility] Microalb:Creat Ratio,Random URon 02-14-2025 Creatinine [Mass/Vol] 68.50 mg/dL Normal 28.00-217.00 [facility] Comment on above: Performed By: #### L 502.0250 #### [facility] Laboratory [address] [place], [address] MALB:CREAT 348.9 mg/g CRE High <30 mg/g CRE [facility] Comment on above: Performed By: #### L 502.0250 #### [facility] [address] [place], [address] MICROALBUMIN,UR 239.0 mg/L Normal <20 mg/L [facility] Comment on above: Performed By: #### L 502.0250 #### [facility] [address] [place], [address] Pelvic w/ Transvaginalon Pelvic w/ Transvaginal [facility] [address] [place] [address] Pelvic w/ Transvaginal MR#: [id number] Acct: [id number] Name: CHRISTY FRANCIS Rep #: [id number] : 1950 F 75 From: Demarcus dominguez MD PCP: Dr. Marielos Perla, DO Status: REG CLI Study: Pelvic w/ Transvaginal Date of Exam: 02/13/25 Exam# [id number] Ordering Dr: Lamar Olivera NP PUMP TECHNICIAN -C PROCEDURE: PELVIC W/ TRANSVAGINAL REASON FOR EXAM: ENDOMETRIAL LINING Patient is postmenopausal. TECHNIQUE: Procedure Code: [id number] Modality: US Procedure: PELVIC W/ TRANSVAGINAL COMPARISON: None FINDINGS: Measurements: Uterus: 7.5 cm x 5.2 cm x 3.1 cm with a volume of 63.4 mL Endometrial Thickness: 8 mm. The endometrium is thickened. Right Ovary: Not visualized. Left Ovary: Not visualized. TRANSABDOMINAL: Uterus: There is a 2.1 cm 2 cm 1.8 cm uterine fibroid. Endometrium: The endometrium is thickened and measures 8 mm. Right ovary: Not visualized. Left ovary: Not visualized. Other: No large pelvic mass identified. Transvaginal sonography was performed to better visualize the endometrium. TRANSVAGINAL: Uterus: Anteverted. 2.1 cm x 2 cm x 1.8 cm fibroid. Endometrium: The endometrium is thickened measuring 8 mm. Right ovary: Not visualized. Left ovary: Not visualized. Other adnexal findings: Cul-de-sac: No free intraperitoneal fluid identified. Tenderness: No tenderness US/Pelvic w/ Transvaginal IMPRESSION: Endometrial thickening. Clinical correlation recommended. 2.1 cm 2 cm 1.8 cm uterine fibroid. Reading Location: [id number] CC: PUMP TECHNICIAN-C Lamar Olivera; Dr. Marielos Perla DO Scarf Gluer: Signed Normal [facility] Spine Lumbar (Routine)on Spine Lumbar (Routine) [facility] Imaging Services [address] [place] [id number] Spine Lumbar (Routine) MR#: [id number] Acct: [id number] Name: CHRISTY FRANCIS Rep #: [id number] : 1950 F 75 From: Thee Ignacio MD PCP: Dr. Marielos Perla DO Status: REG CLI Study: Spine Lumbar (Routine) Date of Exam: 02/13/25 Exam# [id number] Ordering Dr: Lidia Santiago PROCEDURE: SPINE LUMBAR (ROUTINE) 02/13/2025 REASON FOR EXAM: RIGHT SIDE LEG PAIN, STENOSIS, CHRONIC LBP TECHNIQUE: Procedure Code: MRISPL Modality: MR Procedure: SPINE LUMBAR (ROUTINE) FINDINGS: Normal lumbar vertebral body height and alignment with heterogeneous marrow signal and no retroperitoneal mass. L1-2 demonstrates mild canal narrowing from a small central protrusion and a far right lateral osteophyte. At L2-3 mild canal narrowing from ligamentous hypertrophy and mild annular bulging. At L3-4, mild canal narrowing at this level as well with degenerative facet arthrosis and ligamentous hypertrophy. At L4-5, moderate circumferential spinal canal narrowing at this level. Bulging disc comes close to the far left foraminal L4 nerve on sagittal image 5 but without direct impingement. Correlate for left L4 radiculopathy L5-S1 is unremarkable MRI/Spine Lumbar (Routine) IMPRESSION: Moderate spinal stenosis at L4-5. Correlate for left L4 radiculopathy. Mild canal narrowing from L1-L2 through L3-L4 Reading Location: [facility] CC: SKYLER Vance; Dr. Marielos Perla DO Scarf Gluer: Signed Normal [facility] Bilirubin directOrdered By: Akin Jauregui on 2025 Bilirubin.direct [Mass/Vol] 0.12 mg/dL 0.00-0.30 [facility] Bilirubin, totalOrdered By: Akin Jauregui on 2025 Bilirubin [Mass/Vol] 0.20 mg/dL 0.00-1.30 [facility] Calculated very low density lipoprotein (VLDL) cholesterol measurementOrdered By: Akin Jauregui on 2025 Calculated very low density lipoprotein (VLDL) cholesterol measurement 30 mg/dL 5-40 [facility] Cardiology Visit Reporton Cardiology Visit Report [facility] [address] [place] [address] OFFICE VISIT Date of Service: 01/30/25 MR#: [id number] Acct: [id number] Name: CHRISTY FRANCIS Rep #: [id number] : 1950 Provider: SKYLER Gongora Age/Sex: 75/F [place] [facility] Status: Signed HPI HPI History of Present Illness Details: Christy Francis is a 75-year-old female who presents to office today for hospital follow-up. She has a history of coronary artery disease status post CABG receiving FOLEY to her LAD, SVG to the OM 2 and SVG to RCA/PDA in February 2019 at [facility], ischemic mediated cardiomyopathy, hyperlipidemia, hypertension and peripheral arterial occlusive disease following with vascular surgery, Dr. Torres. 01/07/2025 she presented to [facility] ED with complaints of chest pain. She had been experiencing multiple weeks of indigestion prior to this. Troponin was elevated at 27 on arrival. EKG and chest CT in the emergency department demonstrated no acute findings. She was started on a heparin drip and admitted for ACS rule out and catheterization. She underwent cardiac catheterization 01/08/2025 that demonstrated patent foley to the LAD and patent SVG to the posterior descending artery, occluded SVG to the second OM which was previously known. Ejection fraction was reported at 60%. Medical therapy was recommended. While admitted, the hospitalist increased metoprolol to 75mg BID, decreased Losartan to 12.5 BID, and started her on ranolazine 500mg BID for angina. Today she reports significant symptom improvement with the Ranolazine. She states that she continued to have minor chest pain for the first few days out of the hospital, but they dissipated after consistent Ranolazine use. Home blood pressure has been stable around 120/80 with the new medication adjustments. She reports one isolated episode of lightheadedness that occurred in the grocery store 2.5 weeks ago requiring her to rest and stabilize herself on her shopping cart. She states this self-resolved and she felt fatigued for the rest of the day, but did not reoccur. She denies chest pain, palpitations, or pedal edema. She reports quitting smoking 1.5 weeks ago and has been doing well without nicotine. 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 Accompanied by: Self Is patient in pain?: No Allergies cefazolin Allergy (Verified 01/30/25 09:02) Shortness of breath codeine Allergy (Verified 01/30/25 09:02) Shortness of breath morphine Allergy (Verified 01/30/25 09:02) Other naloxone (Naloxone) Allergy (Verified 01/30/25 09:02) Shortness of breath pentazocine Allergy (Verified 01/30/25 09:02) Shortness of breath pentazocine lactate (From Talwin) Allergy (Verified 01/30/25 09:02) Shortness of breath atorvastatin Adverse Reaction (Severe, Verified 01/30/25 09:02) Severe myalgias acetaminophen (From Tylenol) Adverse Reaction (Verified 01/30/25 09:02) Nausea Medications ???Medication ???Instructions ???Recorded ???Confirmed ???Type aspirin 81 mg tablet,delayed 81 mg PO DAILY heart health 01/30/25 History release duloxetine 60 mg capsule,delayed 60 mg PO DAILY mental health 08/2001/30/25 History release allopurinol 300 mg tablet 300 mg PO BID gout 11/05/23 History cilostazol 100 mg tablet 100 mg PO BID anti platelet 01/30/25 History rosuvastatin 10 mg tablet See Rx Instructions .Route 4 01/30/25 Rx .COMPLEX cholesterol #90 TABLETS furosemide 40 mg tablet 40 mg PO DAILY diuretic #90 TABLET S 06/19/24 01/30/25 Rx glimepiride 4 mg tablet 4 mg PO BID diabetes 11/02/2401/17 History insulin aspar prt-insulin aspart 20 unit subcut QAM diabetes 01/30/25 History 100 unit/mL (70-30) subcutaneous soln (Novolog Mix 70-30 U-100 Insuln) nitroglycerin 0.4 mg sublingual 0.4 mg sublingual Q5-15M PRN chest 11/02/24 01/30/25 Rx tablet pain #25 tabs tirzepatide 10 mg/0.5 mL 10 mg subcut .every week diabetes 11/02/24 01/30/25 History subcutaneous pen injector (Aldounrocky) isosorbide mononitrate 60 mg 60 mg PO BID heart 01/07/25 History tablet,extended release 24 hr omeprazole 20 mg capsule,delayed 20 mg PO DAILY reflux 01/07/25 History release losartan 25 mg tablet 12.5 mg (1/2 x 25 mg) PO DAILY #15 01/08/25 01/30/25 Rx tabs metoprolol tartrate 50 mg tablet 75 mg (1.5 x 50 mg) PO BID blood 0 01/08/25 01/30/25 Rx press (more content not included)... Normal [facility] LDL calc ser/plasOrdered By: Akin Jauregui on 2025 Cholesterol in LDL [Mass/Vol] 55 mg/dL [facility] Comment on above: Kbiczaialg=789-983 m g/dL & Higher Dwxq=898 mg/dL or greaterFriedwald Equation for LDL-C Laboratory - Chemistry and C hemistry - challengeOrdered By: Akin Jauregui on 2025 AST [Catalytic activity/Vol] 17 U/L <32 [facility] Lipid Profileon 2025 CHOL:HDL 2.71 Normal [facility] Comment on above: Performed By: #### L 500.4100, L500.3400 #### [facility] Laboratory [address] [place], [place], [id number] Cholesterol [Mass/Vol] 134 mg/dL Normal <=200 [facility] Comment on above: Result Comment: Chol esterol level, Desirable <200 mg/dL Borderline high cholesterol 200-239 mg/dL High cholesterol >=240 mg/dL Recommendations of the NCEP Adult Treatment Panel for the following risk-cutoff thresholds for the [place] population. Performed By: #### L 500.4100, L500.3400 #### [facility] [address] [place], [place], [id number] Cholesterol in HDL [Mass/Vol] 49 mg/dL Normal [facility] Comment on above: Result Comment: Teresita onal Cholesterol Education Program (NCEP) guidelines: <40 mg/dL: Low HDL-cholesterol (major risk factor for CHD) >= 60 mg/dL: High HDL-cholesterol (negative risk factor for CHD) HDL-cholesterol is affected by a number of factors, e.g. smoking, exercise, hormones, sex and age. Performed By: #### L 500.4100, L500.3400 #### [facility] [address] [place], [address] Cholesterol in LDL [Mass/Vol] 55 mg/dL Normal [facility] Comment on above: Result Comment: Bord isngnp=086-893 mg/dL Higher Yhjd=301 mg/dL or greater Friedwald Equation for LDL-C Performed By: #### L 500.4100, L500.3400 #### [facility] [address] [place], [address] Cholesterol in VLDL [Mass/Vol] 30 mg/dL Normal 5-40 [facility] Comment on above: Performed By: #### L 500.4100, L500.3400 #### [facility] [address] [place], [address] Triglyceride [Mass/Vol] 150 mg/dL Normal [facility] Comment on above: Result Comment: The drugs N-Acetylcysteine and Metamizole may falsely depress this assay. Normal range: <150 mg/dL Borderline High: 150-199 mg/dL High: 200-499 mg/dL Very High: >500 mg/dL Performed By: #### L 500.4100, L500.3400 #### [facility] [address] [place], [address] Liver Profileon 2025 Albumin [Mass/Vol] 3.9 g/dL Normal 3.4-4.8 [facility] Comment on above: Performed By: #### L 500.4100, L500.3400 #### [facility] [address] [place], [address] ALK PHOS 98 U/L Normal 35-104 [facility] Comment on above: Performed By: #### L 500.4100, L500.3400 #### [facility] [address] [place], [address] ALT [Catalytic activity/Vol] 9 U/L Normal <=34 [facility] Comment on above: Performed By: #### L 500.4100, L500.3400 #### [facility] [address] [place], [address] AST [Catalytic activity/Vol] 17 U/L Normal <=31 [facility] Comment on above: Performed By: #### L 500.4100, L500.3400 #### [facility] [address] [place], [address] Bilirubin [Mass/Vol] 0.20 mg/dL Normal 0.00-1.30 [facility] Comment on above: Performed By: #### L 500.4100, L500.3400 #### [facility] [address] [place], [address] Bilirubin.direct [Mass/Vol] 0.12 mg/dL Normal 0.00-0.30 [facility] Comment on above: Performed By: #### L 500.4100, L500.3400 #### [facility] [address] [place], [address] Globulin (S) [Mass/Vol] 2.8 g/dL Normal 2.2-4.2 [facility] Comment on above: Performed By: #### L 500.4100, L500.3400 #### [facility] [address] [place], [address] T PROT 6.7 g/dL Normal 5.9-8.4 [facility] Comment on above: Performed By: #### L 500.4100, L500.3400 #### [facility] [place], [address] Screening total cholesterol/ high density lipoprotein (HDL) cholesterol ratioOrdered By: Akin Jauregui on 2025 Cholesterol.total/Chol esterol in HDL [Mass ratio] 2.71 {ratio} [facility] Serum globulin measurementOr dered By: Akin Jauregui on 2025 Globulin (S) [Mass/Vol] 2.8 g/dL 2.2-4.2 [facility] Serum or plasma alanine whitehead otransferase (ALT) measurementOrdered By: Akin Jauregui on 2025 ALT [Catalytic activity/Vol] 9 U/L <35 [facility] Serum or plasma albumin shannon urement (mass/volume)Ordered By: Akin Jauregui on 2025 Albumin [Mass/Vol] 3.9 g/dL 3.4-4.8 [facility] Serum or plasma alkaline diana sphatase measurementOrdered By: Akin Shania on 2025 ALP [Catalytic activity/Vol] 98 U/L 35-104 [facility] Serum or plasma cholesterol in HDL measurement (mass/volume)Ordered By: Akin Jauregui on 2025 Cholesterol in HDL [Mass/Vol] 49 mg/dL >40 [facility] Comment on above: National Cholesterol Education Program (NCEP) guidelines:<40 mg/dL: Low HDL-cholesterol (major risk factor for CHD)>= 60 mg/dL: High HDL-cholesterol (negative risk factor for CHD)HDL-cholesterol is affected by a number of factors, e.g. smoking, exercise, hormones, sex and age. Serum or plasma cholesterol measurement (mass/volume)Ordered By: Akin Jauregui on 2025 Cholesterol [Mass/Vol] 134 mg/dL <201 [facility] Comment on above: Cholesterol level, D esirable <200 mg/dLBorderline high cholesterol 200-239 mg/dLHigh cholesterol >=240 mg/dLRecommendations of the NCEP Adult Treatment Panel for the following risk-cutoff thresholds for the [place] population. Total proteinOrdered By: Jakob Jauregui on 2025 Protein [Mass/Vol] 6.7 g/dL 5.9-8.4 [facility] Triglycerides measurementOrd ered By: Akni Jauregui on 2025 Triglyceride [Mass/Vol] 150 mg/dL <199 [facility] Comment on above: The drugs N-Acetylcy steine and Metamizole may falsely depress this assay. Normal range: <150 mg/dLBorderline High: 150-199 mg/dLHigh: 200-499 mg/dLVery High: >500 mg/dL SCRN MAMM (CAD)W/LAVON BILATo n 01-29-2025 SCRN MAMM (CAD)W/LAVON BILAT [facility] Imaging Services [address] [place], [place] [id number] SCRN MAMM (CAD)W/LAVON BILAT MR#: [id number] Acct: [id number] Name: CHRISTY FRANCIS Rep #: [id number] : 1950 F 74 From: Jyoti Cuenca PCP: Dr. Marielos Perla, DO Status: REG CLI Study: SCRN MAMM (CAD)W/LAVON BILAT Date of Exam: 01/17 07/11 Exam# [id number] Ordering Dr: Lamar Olivera PUMP TECHNICIAN PUMP TECHNICIAN -C EXAM: SCRN MAMM (CAD)W/LAVON BILAT DATE: 01/29/2025 CLINICAL HISTORY: F, Age 74 y/o , SCREEN TECHNIQUE: Procedure Code: [id number] Modality: MG Procedure: SCRN MAMM (CAD)W/LAVON BILAT COMPARISON: Prior exam(s) dated mammogram dated 10/21/2018 and 07/03/2015. FINDINGS: TISSUE DENSITY: There are scattered areas of fibroglandular density. Bilateral Breast Mammographic Findings: No significant masses, calcifications or other abnormalities are identified. Benign-appearing round calcifications are seen in both breasts. Benign vascular calcifications are seen in both breasts. A radiopaque clip is seen in the right breast. The biopsy was benign. Post biopsy site is stable. BI/SCRN MAMM (CAD)W/LAVON BILAT IMPRESSION: Benign screening mammogram OVERALL FINAL ASSESSMENT BI-RADS 2: BENIGN RECOMMENDATION: Routine annual follow-up in 1 Year Additional Recommendation none A letter with findings and recommendations will be mailed to the patient. Reading Location: [id number] CC: JOHNATHON Olivera; Dr. Marielos Perla DO Scarf Gluer: Signed Normal [facility] CTA Abd w/Runoff W/WO Contra ston 01-22-2025 CTA Abd w/Runoff W/WO Contrast [facility] Imaging Services [address] [place], [place] [id number] CTA Abd w/Runoff W/WO Contrast MR#: [id number] Acct: [id number] Name: CHRISTY FRANCIS Rep #: [id number] : 1950 F 74 From: Dannie Olson MD PCP: Dr. Marielos Perla DO Status: REG CLI Study: CTA Abd w/Runoff W/WO Contrast Date of Exam: Exam# [id number] Ordering Dr: Ava Young PROCEDURE: CTA ABD W/RUNOFF W/WO CONTRAST 01/22/2025 REASON FOR EXAM: PAD WITH CLAUDICATION/REST PAIN TECHNIQUE: Procedure Code: [id number] Modality: CT Procedure: CTA ABD W/RUNOFF W/WO CONTRAST One or more dose reduction techniques were used (e.g., Automated exposure control, adjustment of the mA and/or kV according to patient size, use of iterative reconstruction technique). Multiplanar Sagittal and Coronal images were obtained. 3D and or MIPS post processing was performed CONTRAST: Isovue 370 VOLUME: 100 mL RADIATION DOSE SUMMARY: CTDlvol: 25 mGy DLP: 1454 mGycm COMPARISON: None FINDINGS: Aorta: The timing and quality of the contrast bolus is diagnostic. There is no evidence of aortic rupture, dissection or aneurysm. Severe calcified atherosclerotic plaque is seen. Thoracoabdominal aorta 23 mm; infrarenal aorta 17 mm. Distal aorta 17 mm. Iliac Arteries: No aneurysm or dissection. Heavy atherosclerotic plaque is present. There is possibly very short segment flow limitation just proximal to the takeoff of the deep iliac on the right. Celiac: Mild plaque of the origin. No stenosis. SMA: Mild plaque of the origin. No stenosis. JESÚS : Patent Right Renal: Less than 50% stenosis Left Renal: Less than 50% stenosis Lower Extremity Runoff (Bilateral): Common Femoral Arteries: Atherosclerotic. Superficial Femoral Arteries: Patent on the right with short segment flow-limiting stenosis in the proximal right SFA. Complete thrombosis of the left SFA with partial reconstitution within Johny's canal. Profunda Femoris Arteries: Patent bilaterally Popliteal Arteries: At least 50% stenosis bilaterally; the plaque is very irregular and very short segment stenoses may be present.. Tibial and Peroneal Arteries: Short segment stenosis proximal left anterior tibial. Marked irregularity of the proximal peroneal is bilaterally. Very short segment stenoses may be present. Distal Runoff: Very small caliber. Extravascular Findings: The liver, adrenals, spleen, pancreas, kidneys are unremarkable. Gallbladder is not seen and may be surgically absent. Stomach, small bowel and colon are unremarkable. No free fluid, free air or lymphadenopathy. Incidental note is made of a retroaortic left renal vein, a normal variant. Bladder, uterus and adnexa are unremarkable. CT/CTA Abd w/Runoff W/WO Contrast IMPRESSION: 1. Advanced atherosclerotic plaque of the aorta without aneurysm, dissection or rupture. 2. Short segment stenosis distal right common iliac artery just proximal to the takeoff of the deep iliac. 3. Short segment stenosis proximal right SFA. Complete thrombosis left SFA with reconstitution at Johny's canal. 4. Very irregular plaque at the popliteal arteries, proximal peroneal arteries. Short segment stenosis proximal left anterior tibial. Reading Location: [id number] CC: SKYLER Watson; Dr. Marielos Perla DO Scarf Gluer: Signed Normal [facility] L/S Spine Bending Flex/[place] 01-18-2025 L/S Spine Bending Flex/Ext [facility] Imaging Services [address] [place] [address] L/S Spine Bending Flex/Ext MR#: [id number] Acct: [id number] Name: CHRISTY FRANCIS Rep #: [id number] : 1950 F 74 From: Felisa Haines MD PCP: Dr. Marielos Perla DO Status: DEP AMB Study: L/S Spine Bending Flex/Ext Date of Exam: 01/18 Exam# [id number] Ordering Dr: Lidia Santiago PROCEDURE: L/S SPINE BENDING FLEX/EXT 01/18/2025 REASON FOR EXAM: BACK PAIN, CHRONIC TECHNIQUE: Procedure Code: [id number] Modality: DX Procedure: L/S SPINE BENDING FLEX/EXT COMPARISON: 12/22/2024 FINDINGS: BONES: No fracture or focal osseous lesion. Persistent grade 1 anterolisthesis of L4 on L5, which is unchanged with extension compared to 12/22/2024 but minimally increased with flexion. Grade 1 anterolisthesis of L3 on L4 is unchanged with flexion and extension and is stable since the prior study. DISC/DEGENERATIVE CHANGES: The disc spaces are narrowed throughout, greatest at L5-S1. Multilevel vertebral endplate osteophytes greatest at L1-L2. L4-L5 and L5-S1 facet arthropathy. SOFT TISSUES: Scattered vascular calcifications noted. RAD/L/S Spine Bending Flex/Ext IMPRESSION: 1. Grade 1 anterolisthesis at L4-L5 minimally increases with flexion. 2. Degenerative changes of the spine. Reading Location: [id number] CC: SKYLER Vance; Dr. Marielos Perla DO Scarf Gluer: Signed Normal [facility] Orthopedic Visit Reporton Orthopedic Visit Report [facility] [address] [place] [address] OFFICE VISIT Date of Service: 01/18/25 MR#: [id number] Acct: [id number] Name: CHRISTY FRANCIS Rep #: [id number] : 1950 Provider: SKYLER Vance Age/Sex: 74/F Location[place] [facility] Status: Signed Intake Vital Signs 01/07/25 16:04 [...] diabetes 11/02/24 01/18/25 History subcutaneous pen injector (Mounjasonro) isosorbide mononitrate 60 mg 60 mg PO [...] Mechanical loosening of prosthetic knee Atherosclerosis of [place] coronary artery of [place] heart without angina pectoris PAD (peripheral artery disease) HLD (hyperlipidemia) Type II diabetes mellitus Surgical History History of cholecystectomy History of coronary artery bypass graft x 3 ( 02/27/19) History of prosthetic unicompartmental arthroplasty of left knee Family History Mother Heart disease Social History current occupational status: retired current occupation: Retired. [employer]. Smoking Status: Light Smoker (<10/day) alcohol intake: current alcohol intake frequency: holidays/special occasions only substance use type: does not use caffeine: Yes Type: coffee Number of servings: 3 do you feel safe at home: Yes additional social history: . HPI LUMBAR SPINE Details: This documentation accurately reflects the service provided and the decisions made by me, SKLYER Vance 01/18/25 0927. Part of today???s visit was documented by [...] had rhianna (more content not included)... Normal [facility] Surgical pathology reportOrd ered By: Tammy Simmons on 01-12-2025 Surgical pathology study [facility] Policy Services Representative Office Visit Reporton 01-10-2025 Policy Services Representative Office Visit Report [facility]'[address], [address] [place] [address] OFFICE VISIT Date of Service: 01/10/25 MR#: [id number] Acct: [id number] Name: CHRISTY FRANCIS Rep #: [id number] : 1950 Provider: JOHNATHON haro Age/Sex: 74/F [place] [facility] [place]: Signed Intake Vital Signs 11/02/24 10:17 01/07/25 16:04 01/10/25 10:46 Height 5 ft 2 in 5 ft 2 in 5 ft 2 in Weight: 167 lb BMI 30.5 BP 125/74 H Blood Pressure Location Rt brachial Position Sitting Pulse 98 Pulse Source Monitor Intake Visit Reasons: 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 Accompanied by: Self Is patient [...] 10 mg tablet See Rx Instructions .Route 01/10/25 Rx .COMPLEX cholesterol #90 TABLETS furosemide [...] Mechanical loosening of prosthetic knee Atherosclerosis of [place] coronary artery of [place] heart without angina pectoris PAD (peripheral artery disease) HLD (hyperlipidemia) Type II diabetes mellitus Surgical History History of cholecystectomy History of coronary artery bypass graft x 3 ( 02/27/19) History of prosthetic unicompartmental arthroplasty of left knee Family History Mother Heart disease Social History (Updated 01/10/25 @ 10:53 by Kaylen Medrano) current occupational status: retired current occupation: Retired. [employer]. Smoking Status: Light Smoker (<10/day) alcohol [...] Anesthesia Del Locatn Provider FOB [birth year] Germán HENDERSON [birth year] Jean-Claude [facility] ([place]) Details: CHRISTY FRANCIS is a 74 year old who (more content not included)... Normal [facility] Surgery Specimen Level Anthony 01-10-2025 Surgery Specimen Level IV Patient Age/Sex Location Account Attending Physician CHRISTY FRANCIS 74/F LABSPEC [id number] JOHNATHON Dos Santos Specimen: [id number] Received: 01/10/25 Status: LISBETH Sepulveda Num: [id number] Spec Type: ENDOM BX/C Subm Dr: JOHNATHON [...] pink-red tissue. Entirely submitted in 1 cassette. [place] 01/10/2025 CPT:79630 Patient Age/Sex Location Account Attending Physician CHRISTY FRANCIS 74/F LABSPEC [id number] JOHNATHON Dos Santos Signed (signature on file) Dr. Tammy Simmons MD 01/12/25 1526 Normal [facility] Comment on above: Performed By: #### P [place] ####[facility] [address] [place], [place], [id number] 12 Lead EKGon 01-08-2025 12 Lead EKG [facility] Cardiovascular Services [address] [place] [address] 12 Lead EKG 01/08/25 0542 MR#: [id number] Acct: [id number] Name: CHRISTY FRANCIS Rep #: [id number] : 1950 74 From: Jorge Anderson MD Attending Dr: Dr. Rupali Lott DO Status: ADM I NO Ordering Dr: Maritza Suresh MD Date: 01/08/25 Location: [facility] Sex: F C Admitted: 01/07/25 Test [...] UNCONFIRMED Confirmed by MONICA ROMERO, JORGE ([id number]), editor trade journal SHILPA VALENZUELA ([id number]) on 01/08/2025 10:31:37 AM Referred By: Confirmed By: JORGE ANDERSON MD 01/08/25 103 Date Jorge Anderson MD CC: Dr. Rupali Lott DO; Dr. Marielos Perla DO; Dr. Maritza Suresh MD Signed Normal [facility] Absolute lymphocyte countOrd ered By: Elena Bill on 01-08-2025 Lymphocytes Auto (Unsp spec) [#/Vol] 1.37 10*3/uL 0.83-4.51 [facility] Absolute neutrophil countOrd ered By: Elena Bill on 01-08-2025 Neutrophils (Bld) [#/Vol] 7.1 10*3/uL 2.0-7.7 [facility] Automated lymphocyte count a s percentage of total leukocytesOrdered By: Elena Bill on 01-08-2025 Lymphocytes/100 WBC Auto (Unsp spec) 13.2 % Low 19-41 [facility] Basophil percentageOrdered B y: Elena Bill on 01-08-2025 Basophils/100 WBC (Bld) 0.7 % 0-1 [facility] Bedside Glucoseon 01-08-2025 FINGERSTICK GLU 169 mg/dL High 74-106 [facility] Comment on above: Result Comment: GENARO ATKINSENT OF PATIENT CARE PER NURSING PROTOCOL Performed By: #### L 502.0250 #### [facility] Laboratory [address] [place], [address] FINGERSTICK GLU 189 mg/dL High 74-106 [facility] Comment on above: Result Comment: GENARO GEMENT OF PATIENT CARE PER NURSING PROTOCOL Performed By: #### L 501.080 ####[facility] [address] [place], [address] CBC W/Diff, Automatedon 12-19 Absolute Lymph 1.37 X10 3/uL Normal 0.83-4.51 [facility] Comment on above: Performed By: #### L 100.0100 #### [facility] Laboratory [address] [place], [address] Absolute Neut 7.1 X10 3/uL Normal 2.0-7.7 [facility] Comment on above: Performed By: #### L 100.0100 #### [facility] Laboratory [address] [place], [address] Basophils/100 WBC (Bld) 0.7 % Normal 0-1 [facility] Comment on above: Performed By: #### L 100.0100 #### [facility] Laboratory [address] [place], [address] Eosinophils/100 WBC (Bld) 6.3 % High 0-5 [facility] Comment on above: Performed By: #### L 100.0100 #### [facility] Laboratory [address] [place], [address] Erythrocyte distribution width (RBC) [Ratio] 15.0 % High 11.6-14.6 [facility] Comment on above: Performed By: #### L 100.0100 #### [facility] Laboratory [address] [place], [address] Hematocrit (Bld) [Volume fraction] 37.3 % Normal 37-47 [facility] Comment on above: Performed By: #### L 100.0100 #### [facility] Laboratory [address] [place], [address] Hemoglobin (Bld) [Mass/Vol] 12.2 g/dL Normal 12.0-15.0 [facility] Comment on above: Performed By: #### L 100.0100 #### [facility] Laboratory [address], [address] IG% 0.500 Normal 0.0-0.9 [facility] Comment on above: Result Comment: IG% - Immature Granulocytes (promyelocytes, myelocytes and metamyelocytes) > 1% indicates that a LEFT SHIFT is Present. Performed By: #### L 100.0100 #### [facility] Laboratory [address] [place], [address] Lymphocytes/100 WBC (Bld) 13.2 % Low 19-41 [facility] Comment on above: Performed By: #### L 100.0100 #### [facility] Laboratory [address] [place], [address] MCH (RBC) [Entitic mass] 30.6 pg Normal 27.0-32.0 [facility] Comment on above: Performed By: #### L 100.0100 #### [facility] Laboratory [address] [place], [address] MCHC (RBC) [Mass/Vol] 32.7 g/dL Normal 32-36 [facility] Comment on above: Performed By: #### L 100.0100 #### [facility] Laboratory [address] [place], [address] MCV (RBC) [Entitic vol] 93.5 fL Normal 81-99 [facility] Comment on above: Performed By: #### L 100.0100 #### [facility] Laboratory [address] [place], [address] Monocytes/100 WBC (Bld) 10.8 % High 0-10 [facility] Comment on above: Performed By: #### L 100.0100 #### [facility] Laboratory [address] [place], [address] Neutrophils/100 WBC (Bld) 68.5 % Normal 47-70 [facility] Comment on above: Performed By: #### L 100.0100 #### [facility] Laboratory [facility] [place], [address] Nucleated RBC (Bld) [#/Vol] 0 10*3/uL Normal 0-5 [facility] Comment on above: Performed By: #### L 100.0100 #### [facility] Laboratory [address] [place], [address] Platelet mean volume (Bld) [Entitic vol] 11.0 fL Normal 6.2-12.0 [facility] Comment on above: Performed By: #### L 100.0100 #### [facility] Laboratory [address] [place], [address] Platelets (Bld) [#/Vol] 282 10*3/uL Normal 150-450 [facility] Comment on above: Performed By: #### L 100.0100 #### [facility] Laboratory [facility] [place], [address] RBC (Bld) [#/Vol] 3.99 10*6/uL Low 4.2-5.4 [facility] Comment on above: Performed By: #### L 100.0100 #### [facility] Laboratory [address] [place], [address] RDW SD 51.2 fl High 35.1-43.9 [facility] Comment on above: Performed By: #### L 100.0100 #### [facility] Laboratory [address] [place], [address] WBC (Bld) [#/Vol] 10.4 10*3/uL Normal 4.4-11.0 [facility] Comment on above: Performed By: #### L 100.0100 #### [facility] Laboratory [address] [place], [address] Cardiac Cath Diagn[employer]icon Cardiac Cath Diagnostic [facility] Imaging Services [address] [place] [address] Cardiac Cath Diagnostic MR#: [id number] Acct: [id number] Name: CHRISTY FRANCIS Rep #: [id number] : 1950 74 From: Jorge Anderson MD PCP: Dr. Marielos Perla, DO Status:ADM BRIAN Patient Name: CHRISTY FRANCIS Study Date: 01/08/2025 Performing: Jorge Anderson MD Ht: 62 inches 157.48 cm : 1950 Wt: 165.8 lbs 75.1 kg Age: 74 Gender: female BSA: 1.76 PROCEDURE(S) PERFORMED DC04-(83508)LHC/COR/CABG CLINICAL PROFILE AND INDICATIONS Indications: Worsening Angina Heart Failure: None Stress/Imaging Stress/Image Study Performed: No CAD Presentations: Unstable angina. CONCLUSIONS Coronary artery disease with patent FOLEY to the LAD, saphenous vein graft to [...] stenosis. RIGHT CORONARY ARTERY: is occluded GRAFTS: FOLEY graft to the Mid LAD is patent [...] Dictated: 01/08/25 1222 Date Transcribed: 01/08/25 1306 Scarf Gluer: CO Signed Normal [facility] Cardiac catheterization repo rtOrdered By: Jorge Anderson on 01-08-2025 Cardiac catheterization study [facility] Imaging Services [address] [place] [address] Cardiac Cath Diagnostic MR#: [id number] Acct: [id number] Name: CHRISTY FRANCIS Rep #:[id number] : 1950 74 From: Jorge Anderson MD PCP: Dr. Marielos Perla DO Status:ADM BRIAN Patient Name: CHRISTY FRANCIS Study Date: 01/08/2025 Performing: Jorge Anderson MD Ht: 62 inches 157.48 cm : 1950 Wt: 165.8 lbs 75.1 kg Age: 74 Gender: female BSA: 1.76 PROCEDURE(S) PERFORMED DC04-(56207)LHC/COR/CABG CLINICAL PROFILE AND INDICATIONS Indications: Worsening Angina Heart Failure: None Stress/Imaging Stress/Image Study Performed: No CAD Presentations: Unstable angina. CONCLUSIONS Coronary artery disease with patent FOLEY to the LAD, saphenous vein graft to [...] stenosis. RIGHT CORONARY ARTERY: is occluded GRAFTS: FOLEY graft to the Mid LAD is patent [...] Dictated: 01/08/25 1222 Date Transcribed: 01/08/25 1306 Scarf Gluer: CO Signed [facility] Work Phone: Consultation - Cardiologyon 01-08-2025 Consultation - Cardiology [facility] Medical Records Department [address] [place] [address] Consultation - Cardiology 01/08/25 0652 MR#: [id number] Acct: [id number] Name: GALILEOCHRISTY S Rep #: [id number] : 1950 74 From: Jorge Anderson MD PCP: Dr. Marielos Perla DO Status:DIS BRIAN Location: [place] [address] Assessment Plan Assessment/Plan (1) Chest pain: PLAN: [...] of coronary artery bypass surgery with a FOLEY to the LAD saphenous vein graft to [...] last catheterization in 2021 demonstrated the patent FOLEY to the LAD and the saphenous vein graft to the posterior descending artery. The graft to the obtuse marginal branch was occluded. [facility] Medical History Severe left ventricular systolic dysfunction (LVSD) Palpitations Right rotator cuff tear Trigger finger of both hands Carpal tunnel syndrome on both sides FHx: cholecystectomy History of left heart catheterization (LHC) ( 06/03/21) Essential hypertension Mechanical loosening of prosthetic knee Atherosclerosis of [place] coronary artery of [place] heart without angina pectoris PAD (peripheral artery [...] mg tablet 25 mg PO DAILY 01/07/25 01/07/25 H istory omeprazole 20 mg capsule,delayed 20 mg PO DAILY 01/07/25 01/07/25 H istory release Allergy/AdvReac Type Severity Reaction Status D (more content not included)... Normal [facility] Electrocardiogram reportOrde red By: Jorge Anderson on 01-08-2025 EKG study [facility] Cardiovascular Services [address] [place] [address] 12 Lead EKG 01/07/25 1623 MR#: [id number] Acct: [id number] Name: CHRISTY FRANCIS Rep #:[id number] : 1950 74 From: Jorge Anderson MD Attending Dr: DO Charis Ernandez tatus: ADM BRIAN Ordering Dr: Maritza Suresh MD Date: 01/07/25 Location: U Sex: F [...] IS UNCONFIRMED Confirmed by JORGE ANDERSON MD ([id number]), editor trade journal SHILPA VALENZUELA ([id number]) on 01/08/2025 10:32:10 AM Referred By: SATHYA Confirmed By: JORGE ANDERSON MD 01/08/25 103 Date _ Jorge Anderson MD CC: Dr. Rupali Lott DO; Dr. Marielos Perla DO; Dr. Maritza Suresh MD ~ Signed [facility] Work Phone: EKG study [facility] Cardiovascular Services [address] [place] [address] 12 Lead EKG 01/08/25 0542 MR#: [id number] Acct: [id number] Name: CHRISTY FRANCIS Rep #:[id number] : 1950 74 From: Jorge Anderson MD Attending Dr: DO Charis Ernandez tatus: ADM BRIAN Ordering Dr: Maritza Suresh MD Date: 01/08/25 Location: [facility] Sex: F C Admitted: 01/07/25 Test [...] IS UNCONFIRMED Confirmed by JORGE ANDERSON MD ([id number]), editor trade journal SHILPA VALENZUELA ([id number]) on 01/08/2025 10:31:37 AM Referred By: Confirmed By: JORGE ANDERSON MD 01/08/25 1031 Date _ Jorge Anderson MD CC: Dr. Rupali Lott DO; Dr. Marielos Perla DO; Dr. Maritza Suresh MD ~ Signed [facility] Work Phone: EKG study [facility] Cardiovascular Services [address] [place] [address] 12 Lead EKG 01/07/25 1234 MR#: [id number] Acct: [id number] Name: CHRISTY FRANCIS Rep #:[id number] : 1950 74 From: Jorge Anderson MD Attending Dr: Dr. Rupali Lott DO S tatus: ADM BRIAN Ordering Dr: Elena Bill MD Date: Location: [facility] Sex: F C Admitted: 01/07/25 Test Reason : AR/ER Blood Pressure : */* mmHG Vent. Rate : 99 BPM Atrial Rate : 99 BPM P-R Int : 152 ms QRS Dur : 72 ms QT Int : 332 ms P-R-T Axes : 59 -4 83 degrees QTcB Int : 426 ms Normal sinus rhythm Normal ECG Confirmed by MONICA ROMERO, JORGE ([id number]), editor trade journal SHILPA VALENZUELA ([id number]) on 01/08/2025 7:56:38 AM Referred By: Confirmed By: JORGE ANDERSON MD 01/08/25 0756 Date _ Jorge Anderson MD CC: Dr. Elena Bill MD; Dr. Rupali Lott DO; Dr. Marielos Perla DO ~ Signed [facility] Work Phone: [phone] Eosinophil percentageOrdered By: Elena Bill on 01-08-2025 Eosinophils/100 WBC (Bld) 6.3 % High 0-5 [facility] Erythrocyte distribution wid th ratioOrdered By: Elena Bill on 01-08-2025 Erythrocyte distribution width (RBC) [Ratio] 15.0 % High 11.6-14.6 [facility] Erythrocyte distribution wid th standard deviationOrdered By: Elena Bill on 01-08-2025 Erythrocyte distribution width (RBC) [Ratio] 51.2 fl High 35.1-43.9 [facility] Glucose measurement at bedsi deOrdered By: Rupali Lott on 01-08-2025 Glucose [Mass/Vol] 169 mg/dL High 74-106 [facility] Comment on above: MANAGEMENT OF PATIEN T CARE PER NURSING PROTOCOL Hematocrit Auto (Bld) [Volum e fraction]Ordered By: Elena Bill on 01-08-2025 Hematocrit (Bld) [Volume fraction] 37.3 % 37-47 [facility] Hemoglobin measurementOrdere d By: Elena Bill on 01-08-2025 Hemoglobin (Bld) [Mass/Vol] 12.2 g/dL 12.0-15.0 [facility] Immature granulocytes/100 WB C Auto (Bld)Ordered By: Elena Bill on 01-08-2025 Immature granulocytes/100 WBC (Bld) 0.500 % 0.0-0.9 [facility] Comment on above: IG% - Immature Granu locytes (promyelocytes, myelocytes and metamyelocytes) > 1% indicates that a LEFT SHIFT is Present. MCV (mean corpuscular volume ) determinationOrdered By: Elena Bill on 01-08-2025 MCV (RBC) [Entitic vol] 93.5 fL 81-99 [facility] Mean corpuscular hemoglobin (MCH) determinationOrdered By: Elena Bill on 01-08-2025 MCH (RBC) [Entitic mass] 30.6 pg 27.0-32.0 [facility] Mean corpuscular hemoglobin concentration (MCHC) determinationOrdered By: Elena Bill on 01-08-2025 MCHC (RBC) [Mass/Vol] 32.7 g/dL 32-36 [facility] Mean platelet volume determi nationOrdered By: Elena Bill on 01-08-2025 Platelet mean volume (Bld) [Entitic vol] 11.0 fL 6.2-12.0 [facility] Monocyte percentageOrdered B y: Elena Bill on 01-08-2025 Monocytes/100 WBC (Bld) 10.8 % High 0-10 [facility] Neutrophil percentageOrdered By: Elena Bill on 01-08-2025 Neutrophils/100 WBC (Bld) 68.5 % 47-70 [facility] Nucleated red blood cell per centageOrdered By: Elena Bill on 01-08-2025 Nucleated RBC/100 WBC (Bld) [Ratio] 0 % 0-5 [facility] Platelet countOrdered By: Tomasz Bill on 01-08-2025 Platelets (Bld) [#/Vol] 282 10*3/uL 150-450 [facility] RBC Auto (Bld) [#/Vol]Ordere d By: Elena Bill on 01-08-2025 RBC (Bld) [#/Vol] 3.99 10*6/uL Low 4.2-5.4 [facility] White blood cell (WBC) count Ordered By: Elena Bill on 01-08-2025 WBC (Bld) [#/Vol] 10.4 10*3/uL 4.4-11.0 [facility] 12 Lead EKGon 01-07-2025 12 Lead EKG [facility] Cardiovascular Services [address] [place] [address] 12 Lead EKG 01/07/25 1623 MR#: [id number] Acct: [id number] Name: CHRISTY FRANCIS Rep #: [id number] : 1950 74 From: Jorge Anderson MD Attending Dr: Dr. Rupali Lott, DO Status: ADM I NO Ordering Dr: Maritza Suresh MD Date: 01/07/25 Location: [facility] Sex: F C Admitted: 01/07/25 Test [...] UNCONFIRMED Confirmed by MONICA ROMERO, JORGE ([id number]), editor trade journal SHILPA VALENZUELA ([id number]) on 01/08/2025 10:32:10 AM Referred By: SATHYA Confirmed By: JORGE ANDERSON MD 01/08/25 1032 Date Jorge Anderson MD CC: Dr. Rupali Lott DO; Dr. Marielos Perla DO; Dr. Maritza Suresh MD Signed [facility] 12 Lead EKG [facility] Cardiovascular Services [address] [place] [address] 12 Lead EKG 01/07/25 1234 MR#: [id number] Acct: [id number] Name: CHRISTY FRANCIS Rep #: [id number] : 1950 74 From: Jorge Anderson MD Attending Dr: Dr. Rupali Lott DO Status: ADM I NO Ordering Dr: Elena Bill MD Date: 01/07/25 Location: [facility] Sex: F C Admitted: 01/07/25 Test Reason : AR/ER Blood Pressure : */* mmHG Vent. Rate : 99 BPM Atrial Rate : 99 BPM P-R Int : 152 ms QRS Dur : 72 ms QT Int : 332 ms P-R-T Axes : 59 -4 83 degrees QTcB Int : 426 ms Normal sinus rhythm Normal ECG Confirmed by JORGE ANDERSON MD ([id number]), editor trade journal SHILPA VALENZUELA ([id number]) on 01/08/2025 7:56:38 AM Referred By: Confirmed By: JORGE ANDERSON MD 01/08/25 0756 Date Jorge Anderson MD CC: Dr. Elena Bill MD; Dr. Rupali Lott DO; Dr. Marielos Perla DO Signed [facility] Activated partial thrombopla stin time (aPTT) in platelet poor plasma by coagulation aOrdered By: Elena Bill on 01-07-2025 aPTT Coag (PPP) [Time] 26.9 s 24.1-36.2 [facility] Anion gap in Serum or Plasma Ordered By: Elenaomar Bill on 01-07-2025 Anion gap [Moles/Vol] 13 mmol/L 5-15 [facility] BUN/creatinine ratioOrdered By: Elena Bill on 01-07-2025 Urea nitrogen/Creatinine [Mass ratio] 22.7 mg/mg High 10- [facility] Basic Metabolic Profile (BMP )on 01-07-2025 BUN/CRE 22.7 RATIO High - [facility] Comment on above: Performed By: #### L 502.0250 #### [facility] Laboratory [address] [place], [address] Calcium [Mass/Vol] 9.5 mg/dL Normal 7.6-11.0 [facility] Comment on above: Performed By: #### L 502.0250 #### [facility] Laboratory [address] [place], [address] Chloride [Moles/Vol] 99 mmol/L Normal 98-108 [facility] Comment on above: Performed By: #### L 502.0250 #### [facility] Laboratory [address] [place], [address] CO2 [Moles/Vol] 25.3 mmol/L Normal 21.0-32.0 [facility] Comment on above: Performed By: #### L 502.0250 #### [facility] Laboratory [address] [place], [address] Creatinine [Mass/Vol] 1.26 mg/dL High 0.70-1.20 [facility] Comment on above: Performed By: #### L 502.0250 #### [facility] Laboratory [address] [place], [address] ECRCL 37.37 ml/min Low 50-250 [facility] Comment on above: Performed By: #### L 502.0250 #### [facility] Laboratory [address] [place], [address] GAP 13 Normal 5-15 [facility] Comment on above: Performed By: #### L 502.0250 #### [facility] Laboratory [address] [place], [address] GFR/1.73 sq M.predicted among non-blacks MDRD (S/P/Bld) [Vol rate/Area] 45 mL/min/{1.73_m2} Low >60 [facility] Comment on above: Result Comment: mL/m in/1.73m2 CKD-EPI Creatinine Equation (2020) Performed By: #### L 502.0250 #### [facility] Laboratory [address] [place], [address] Glucose [Mass/Vol] 186 mg/dL High 70-99 [facility] Comment on above: Performed By: #### L 502.0250 #### [facility] Laboratory [address] [place], [address] Potassium [Moles/Vol] 4.0 mmol/L Normal 3.3-5.1 [facility] Comment on above: Performed By: #### L 502.0250 #### [facility] Laboratory [address] [place], [address] Sodium [Moles/Vol] 138 mmol/L Normal 133-145 [facility] Comment on above: Performed By: #### L 502.0250 #### [facility] Laboratory [address] [place], [address] Urea nitrogen [Mass/Vol] 29 mg/dL High 4-19 [facility] Comment on above: Performed By: #### L 502.0250 #### [facility] Laboratory [address] [place], [address] Bedside Glucoseon 01-07-2025 FINGERSTICK GLU 194 mg/dL High 74-106 [facility] Comment on above: Result Comment: GENARO DANG OF PATIENT CARE PER NURSING PROTOCOL Performed By: #### L 501.080 ####[facility] [address] [place], [address] CBC W/Diff, Automatedon 09- Absolute Lymph 1.76 X10 3/uL Normal 0.83-4.51 [facility] Comment on above: Performed By: #### L 502.0250 #### [facility] Laboratory [address] [place], [address] Absolute Neut 8.4 X10 3/uL High 2.0-7.7 [facility] Comment on above: Performed By: #### L 502.0250 #### [facility] Laboratory [address] [place], [address] Basophils/100 WBC (Bld) 0.6 % Normal 0-1 [facility] Comment on above: Performed By: #### L 502.0250 #### [facility] Laboratory [address] [place], [address] Eosinophils/100 WBC (Bld) 5.2 % High 0-5 [facility] Comment on above: Performed By: #### L 502.0250 #### [facility] Laboratory [address] [place], [address] Erythrocyte distribution width (RBC) [Ratio] 15.2 % High 11.6-14.6 [facility] Comment on above: Performed By: #### L 502.0250 #### [facility] Laboratory [address] [place], [address] Hematocrit (Bld) [Volume fraction] 40.1 % Normal 37-47 [facility] Comment on above: Performed By: #### L 502.0250 #### [facility] Laboratory [address] [place], [address] Hemoglobin (Bld) [Mass/Vol] 13.4 g/dL Normal 12.0-15.0 [facility] Comment on above: Performed By: #### L 502.0250 #### [facility] Laboratory [address] [place], [address] IG% 0.300 Normal 0.0-0.9 [facility] Comment on above: Result Comment: IG% - Immature Granulocytes (promyelocytes, myelocytes and metamyelocytes) > 1% indicates that a LEFT SHIFT is Present. Performed By: #### L 502.0250 #### [facility] Laboratory [address] [place], [address] Lymphocytes/100 WBC (Bld) 14.8 % Low 19-41 [facility] Comment on above: Performed By: #### L 502.0250 #### [facility] Laboratory [address] [place], [address] MCH (RBC) [Entitic mass] 31.8 pg Normal 27.0-32.0 [facility] Comment on above: Performed By: #### L 502.0250 #### [facility] Laboratory [address] [place], [address] MCHC (RBC) [Mass/Vol] 33.4 g/dL Normal 32-36 [facility] Comment on above: Performed By: #### L 502.0250 #### [facility] Laboratory [address] [place], [address] MCV (RBC) [Entitic vol] 95.0 fL Normal 81-99 [facility] Comment on above: Performed By: #### L 502.0250 #### [facility] [address] [place], [address] Monocytes/100 WBC (Bld) 9.1 % Normal 0-10 [facility] Comment on above: Performed By: #### L 502.0250 #### [facility] [address] [place], [address] Neutrophils/100 WBC (Bld) 70.0 % Normal 47-70 [facility] Comment on above: Performed By: #### L 502.0250 #### [facility] [address] [place], [address] Nucleated RBC (Bld) [#/Vol] 0 10*3/uL Normal 0-5 [facility] Comment on above: Performed By: #### L 502.0250 #### [facility] [address] [place], [address] Platelet mean volume (Bld) [Entitic vol] 11.0 fL Normal 6.2-12.0 [facility] Comment on above: Performed By: #### L 502.0250 #### [facility] [address] [place], [address] Platelets (Bld) [#/Vol] 312 10*3/uL Normal 150-450 [facility] Comment on above: Performed By: #### L 502.0250 #### [facility] [address] [place], [address] RBC (Bld) [#/Vol] 4.22 10*6/uL Normal 4.2-5.4 [facility] Comment on above: Performed By: #### L 502.0250 #### [facility] [address] [place], [address] RDW SD 53.1 fl High 35.1-43.9 [facility] Comment on above: Performed By: #### L 502.0250 #### [facility] [address] [place], [address] WBC (Bld) [#/Vol] 11.9 10*3/uL High 4.4-11.0 [facility] Comment on above: Performed By: #### L 502.0250 #### [facility] [address] [place], [address] Absolute Neut Normal 2.0-7.7 [facility] Comment on above: Order Comment: Comme nts: If not done in prior 24 hours Result Comment: DUPL ICATE ORDER. Performed By: #### L 500.4100, L500.3400 #### [facility] [address] [place], [address] HCT Normal 37-47 [facility] Comment on above: Order Comment: Comme nts: If not done in prior 24 hours Result Comment: DUPL ICATE ORDER. Performed By: #### L 500.4100, L500.3400 #### [facility] [address] [place], [address] HGB Normal 12.0-15.0 [facility] Comment on above: Order Comment: Comme nts: If not done in prior 24 hours Result Comment: DUPL ICATE ORDER. Performed By: #### L 500.4100, L500.3400 #### [facility] [address] [place], [address] MCH Normal 27.0-32.0 [facility] Comment on above: Order Comment: Comme nts: If not done in prior 24 hours Result Comment: DUPL ICATE ORDER. Performed By: #### L 500.4100, L500.3400 #### [facility] [address] [place], [address] MCHC Normal 32-36 [facility] Comment on above: Order Comment: Comme nts: If not done in prior 24 hours Result Comment: DUPL ICATE ORDER. Performed By: #### L 500.4100, L500.3400 #### [facility] [address] [place], [address] MCV Normal 81-99 [facility] Comment on above: Order Comment: Comme nts: If not done in prior 24 hours Result Comment: DUPL ICATE ORDER. Performed By: #### L 500.4100, L500.3400 #### [facility] [address] [place], [address] NEUT% Normal 47-70 [facility] Comment on above: Order Comment: Comme nts: If not done in prior 24 hours Result Comment: DUPL ICATE ORDER. Performed By: #### L 500.4100, L500.3400 #### [facility] [address] [place], [address] PLT Normal 150-450 [facility] Comment on above: Order Comment: Comme nts: If not done in prior 24 hours Result Comment: DUPL ICATE ORDER. Performed By: #### L 500.4100, L500.3400 #### [facility] [address] [place], [address] RBC Normal 4.2-5.4 [facility] Comment on above: Order Comment: Comme nts: If not done in prior 24 hours Result Comment: DUPL ICATE ORDER. Performed By: #### L 500.4100, L500.3400 #### [facility] [address] [place], [address] RDW CV Normal 11.6-14.6 [facility] Comment on above: Order Comment: Comme nts: If not done in prior 24 hours Result Comment: DUPL ICATE ORDER. Performed By: #### L 500.4100, L500.3400 #### [facility] [address] [place], [address] RDW SD Normal 35.1-43.9 [facility] Comment on above: Order Comment: Comme nts: If not done in prior 24 hours Result Comment: DUPL ICATE ORDER. Performed By: #### L 500.4100, L500.3400 #### [facility] [address] [place], [address] WBC Normal 4.4-11.0 [facility] Comment on above: Order Comment: Comme nts: If not done in prior 24 hours Result Comment: DUPL ICATE ORDER. Performed By: #### L 500.4100, L500.3400 #### [facility] [address] [place], [place], [address] CTA Chest W/WO Contraston CTA Chest W/WO Contrast [facility] Imaging Services [address] [place] [address] CTA Chest W/WO Contrast MR#: [id number] Acct: [id number] Name: CHRISTY FRANCIS Rep #: [id number] : 1950 F 74 From: Thee Ignacio MD PCP: Dr. Marielos Perla DO Status: [facility] ER Study: CTA Chest W/WO Contrast Date of Exam: 01/07/25 Exam# [id number] Ordering Dr: Elena Bill MD PROCEDURE: CTA [...] Contrast IMPRESSION: No significant abnormality Reading [facility] CC: Dr. Elena Bill MD; Dr. Marielos Perla DO Scarf Gluer: Signed Normal [facility] Carbon dioxide, total [Moles /volume] in Central venous bloodOrdered By: Elena Bill on 09-21-2025 CO2 [Moles/Vol] 25.3 mmol/L 21.0-32.0 [facility] Chest PA and Lateralon 01-07 Chest PA and Lateral [facility] Imaging Services [address] [place] [address] Chest PA and Lateral MR#: [id number] Acct: [id number] Name: CHRISTY FRANCIS Rep #: [id number] : 1950 F 74 From: Felisa Haines MD PCP: Dr. Marielos Perla DO Status: REG ER Study: Chest PA and Lateral Date of Exam: 01/07/25 Exam# [id number] Ordering Dr: Elena Bill MD PROCEDURE: CHEST [...] Lateral IMPRESSION: NO ACUTE FINDINGS. Reading Location: [facility] CC: Dr. Elena Bill MD; Dr. Marielos Perla DO Scarf Gluer: Signed Normal [facility] Chloride assayOrdered By: Tomasz Bill on 01-07-2025 Chloride [Moles/Vol] 99 mmol/L 98-108 [facility] D-Dimer Quantitative (DVT/PE )on 01-07-2025 D-DIMER QUANT 0.83 FEU/ug/m Invalid Interpretation Code 0.27-0.49 [facility] Comment on above: Result Comment: CRIT ICAL VALUE CALLED TO Dedra DIXON 01/07/25 1321 Lalita Temple. RESULTS READ BACK BY SAME. D-Dimer ELEVATED (>0.49): Additional studies and clinical assessments are indicated to conclude diagnosis of: Deep Vein Thrombosis (DVT) or Pulmonary Embolism (PE) Performed By: #### L 502.0250 #### [facility] [address] [place], [address] Emergency Department Summary on 01-07-2025 Emergency Department Summary [facility] Medical Records Department [address] [place] [address] Emergency Department Summary 01/07/25 MR#: [id number] Acct: [id number] Name: CHRISTY FRANCIS Rep #: [id number] : 1950 74 From: Elena Bill MD PCP: Dr. Marielos Perla, DO Status:REG ER Location: ED HPI History of Present Illness Chief Complaint: Chest Pain Narrative Narrative: Patient is a 74-year-old female presenting to the emergency department for chest pain that started around 9 AM this morning. Patient has a past medical history of a CABG in 2019 at [facility], palpitations, hypertension, hyperlipidemia, type 2 diabetes [...] baby aspirin this morning prior to coming. [facility] Medical History Severe left ventricular systolic dysfunction (LVSD) Palpitations Right rotator cuff tear Trigger finger of both hands Carpal tunnel syndrome on both sides FHx: cholecystectomy History of left heart catheterization (LHC) ( 06/03/21) Essential hypertension Mechanical loosening of prosthetic knee Atherosclerosis of [place] coronary artery of [place] heart without angina pectoris PAD (peripheral artery [...] week 11/02/24 Unknown History subcutaneous pen injector (Mounjaro) metoprolol tartrate 50 mg tablet 50 mg [...] and sym (more content not included)... Normal [facility] Glomerular filtration rate ( GFR) estimation/1.73 sq m using serum, plasma, or whole bOrdered By: Elena Bill on 01-07-2025 GFR/1.73 sq M.predicted among non-blacks MDRD (S/P/Bld) [Vol rate/Area] 45 mL/min/{1.73_m2} Low >60 [facility] Comment on above: mL/min/1.73m2 CKD-EP I Creatinine Equation (2020) H AND P Exam - [facility] 01-07-2025 H&P Exam - Hospitalist [facility] Medical Records Department [address] [place] [address] H P Exam - Hospitalist 01/07/25 1436 MR#: [id number] Acct: [id number] Name: CHRISTY FRANCIS Rep #: [id number] : 1950 74 From: Maritza Suresh MD PCP: Dr. Marielos Perla, DO Status:ADM BRIAN Location: [place] [address] HPI - General General Date of Admission: [...] a history of CABG in 2019 at [facility] as well as peripheral artery disease, hyperlipidemia and type 2 diabetes mellitus. She also admitted to [facility] for several weeks prior to admission. She [...] managed for chest pain rule out ACS. [facility] Medical History Severe left ventricular systolic dysfunction (LVSD) Palpitations Right rotator cuff tear Trigger finger of both hands Carpal tunnel syndrome on both sides FHx: cholecystectomy History of left heart catheterization (LHC) ( 06/03/21) Essential hypertension Mechanical loosening of prosthetic knee Atherosclerosis of [place] coronary artery of [place] heart without angina pectoris PAD (peripheral artery [...] frequency: hol (more content not included)... Normal [facility] International normalized rat io (INR) calculationOrdered By: Elena Bill on 01-07-2025 INR Coag (Bld) [Relative time] 1.1 {INR} [facility] L501.4021on 01-07-2025 Trop T High Sen 27 ng/L High <=14 [facility] Comment on above: Performed By: #### L 500.4100, L500.3400 #### [facility] Laboratory [address] [place], [address] Partial Thromboplast Timeon 01-07-2025 aPTT Coag (Bld) [Time] 26.9 s Normal 24.1-36.2 [facility] Comment on above: Order Comment: Comme nts: If not done in prior 24 hours Performed By: #### L 500.4100, L500.3400 #### [facility] [address] [place], [address] Potassium measurement (mass/ volume)Ordered By: Elena Bill on 01-07-2025 Potassium (Unsp spec) [Mass/Vol] 4.0 mmol/L 3.3-5.1 [facility] Prothrombin Time w/INRon INR Coag (PPP) [Relative time] 1.1 {INR} Normal [facility] Comment on above: Order Comment: Comme nts: If not done in prior 24 hours Performed By: #### L 500.4100, L500.3400 #### [facility] [address] [place], [address] PT Coag (PPP) [Time] 14.2 s Normal 11.7-14.9 [facility] Comment on above: Order Comment: Comme nts: If not done in prior 24 hours Performed By: #### L 500.4100, L500.3400 #### [facility] [address] [place], [place], [address] Prothrombin timeOrdered By: Elena Bill on 01-07-2025 PT Coag (PPP) [Time] 14.2 s 11.7-14.9 [facility] Serum creatinine measurement (mass/volume)Ordered By: Elena Bill on 01-07-2025 Creatinine [Mass/Vol] 1.26 mg/dL High 0.70-1.20 [facility] Serum glucose measurement (m ass/volume)Ordered By: Elena Bill on 01-07-2025 Glucose [Mass/Vol] 186 mg/dL High 70-99 [facility] Serum or plasma calcium shannon urement (mass/volume)Ordered By: Elena Bill on 01-07-2025 Calcium [Mass/Vol] 9.5 mg/dL 7.6-11.0 [facility] Serum or plasma urea nitroge n measurement (mass/volume)Ordered By: Elena Bill on 01-07-2025 Urea nitrogen [Mass/Vol] 29 mg/dL High 4-19 [facility] Sodium levelOrdered By: Grant Bill on 01-07-2025 Sodium [Moles/Vol] 138 mmol/L 133-145 [facility] Troponin T HS 2 HRon 025 Trop T High Sen 28 ng/L High <=14 [facility] Comment on above: Performed By: #### L 499.0042 #### [facility] [address] [place], [place], [address] Troponin T HS 4 HRon 025 Trop T High Sen 27 ng/L High <=14 [facility] Comment on above: Performed By: #### L 500.4100, L500.3400 #### [facility] [address] [place], [place], [address] Troponin T.cardiac [Mass/vol ume] in Serum or Plasma by High sensitivity methodOrdered By: Elena Bill on 01-07-2025 Troponin T.cardiac High sensitivity method [Mass/Vol] 27 ng/L High <14 [facility] Troponin T.cardiac High sensitivity method [Mass/Vol] 28 ng/L High <14 [facility] Troponin T.cardiac High sensitivity method [Mass/Vol] 27 ng/L High <14 [facility] MR/BMS.Son 01-03-2025 MR/BMS.BVS [facility] [place] [facility] [address] [place] [address] OFFICE VISIT Date of Service: 01/03/25 MR#: [id number] Acct: [id number] Name: CHRISTY FRANCIS Rep #: [id number] : 1950 Provider: SKYLER Watson Age/Sex: 74/F Location: [facility] Status: Signed Intake Vital Signs 11/02/24 10:17 [...] tablet See Rx Instructions .Route 04/17/ 4 01/03/25 Rx .COMPLEX cholesterol #90 TABLETS [...] Mechanical loosening of prosthetic knee Atherosclerosis of [place] coronary artery of [place] heart without angina pectoris PAD (peripheral artery [...] stable, slow downward trend. Arterial duplex in 2019 suggested L SFA occlusion and severe R [...] of we (more content not included)... Normal [facility] Arterial study reportOrdered By: Grant Torres on 12-25-2024 Noninvasive arteriosclerosis study report [facility] Cardiovascular Services [address] [place] [address] Lower Ext Art Exam w/ Exercise 12/22/24 0956 MR#: [id number] Acct: [id number] Name: CHRISTY FRANCIS Rep #:[id number] : 1950 74 From: Grant Mendez Attending Dr: SKYLER Watson Stat us: REG CLI Ordering Dr: Ava Young Date: Location: CVS Sex: F C Admitted: Reason For Study [...] MD CC: SKYLER Watson; Dr. Marielos Perla, ~ Date Dictated: 12/22/2456 Date Transcribed: 12/25/24 1238 Scarf Gluer: Signed [facility] Work Phone: Lower Ext Art Exam w/ Exerci mai 12-22-2024 Lower Ext Art Exam w/ Exercise [facility] [place] [address] Lower Ext Art Exam w/ Exercise 12/22/24 0956 MR#: [id number] Acct: [id number] Name: CHRISTY FRANCIS Rep #: [id number] : 1950 74 From: Grant Torres MD Attending Dr: SKYLER Watson Status: REG CLI Ordering Dr: Ava Young Date: 12/22/24 Location: [facility] Sex: F C Admitted: Reason For [...] Date Dictated: 12/22/2456 Date Transcribed: 12/25/24 1238 Scarf Gluer: Signed Normal [facility] Lumbar Spine 2 or 3 Viewson 12-22-2024 Lumbar Spine 2 or 3 Views [facility] Imaging Services [address] [place], [place] [address] Lumbar Spine 2 or 3 Views MR#: [id number] Acct: [id number] Name: CHRISTY FRANCIS Rep #: [id number] : 1950 F 74 From: Ted Bullock MD PCP: Dr. Marielos Perla, Status: REG CLI Study: Lumbar Spine 2 or 3 Views Date of Exam: Exam# [id number] Ordering Dr: Ava Young EXAM: XR Lumbosacral [...] changes lumbar spine as described. Reading Location: [facility] CC: SKYLER Wtason; Dr. Marielos Perla DO Scarf Gluer: Signed Normal [facility] MR/BMS.BVSon 12-12-2024 MR/BMS.BVS [facility] Surgery [address] [place] [address] OFFICE VISIT Date of Service: 12/12/24 MR#: [id number] Acct: [id number] Name: CHRISTY FRANCIS Rep #: [id number] : 1950 Provider: SKYLER Watson Age/Sex: 74/F Location[facility] Status: Signed Intake Vital Signs 11/02/24 10:17 [...] Mechanical loosening of prosthetic knee Atherosclerosis of [place] coronary artery of [place] heart without angina pectoris PAD (peripheral artery [...] accompanied to her appointment today by her [id number] Lynda who is an RN and helps with her medical care. Her most recent arterial testing here was 10/01/23 showing R ISIDRO 0.71 with monophasic waveforms and L ISIDRO 0.56 with mono/biphasic waveforms. In review of studies dating back to 2019 this has been fairly stable, slow downward trend. Arterial duplex in 2019 suggested L SFA occlusion and severe R [...] her k (more content not included)... Normal [facility] Anion gap in Serum or Plasma Ordered By: Jennifer Bailey on 12-06-2024 Anion gap [Moles/Vol] 14 mmol/L 5- [facility] BUN/creatinine ratioOrdered By: Jennifer Bailey on 12-06-2024 Urea nitrogen/Creatinine [Mass ratio] 22.5 mg/mg High 02-05 [facility] Basic Metabolic Profile (BMP )on 12-06-2024 BUN/CRE 22.5 RATIO High 02-05 [facility] Comment on above: Performed By: #### L 500.2500 #### [facility] [address] [place], [address] Calcium [Mass/Vol] 9.5 mg/dL Normal 7.6-11.0 [facility] Comment on above: Performed By: #### L 500.2500 #### [facility] [address] [place], [address] Chloride [Moles/Vol] 98 mmol/L Normal 98-108 [facility] Comment on above: Performed By: #### L 500.2500 #### [facility] [address] [place], [address] CO2 [Moles/Vol] 26.5 mmol/L Normal 21.0-32.0 [facility] Comment on above: Performed By: #### L 500.2500 #### [facility] [address] [place], [address] Creatinine [Mass/Vol] 1.42 mg/dL High 0.70-1.20 [facility] Comment on above: Performed By: #### L 500.2500 #### [facility] [address] [place], [address] GAP 14 Normal 5-15 [facility] Comment on above: Performed By: #### L 500.2500 #### [facility] [address] [place], [address] GFR/1.73 sq M.predicted among non-blacks MDRD (S/P/Bld) [Vol rate/Area] 39 mL/min/{1.73_m2} Low >60 [facility] Comment on above: Result Comment: mL/m in/1.73m2 CKD-EPI Creatinine Equation (2020) Performed By: #### L 500.2500 #### [facility] [address] [place], [address] Glucose [Mass/Vol] 169 mg/dL High 70-99 [facility] Comment on above: Performed By: #### L 500.2500 #### [facility] [address] [place], [address] Potassium [Moles/Vol] 4.2 mmol/L Normal 3.3-5.1 [facility] Comment on above: Performed By: #### L 500.2500 #### [facility] [address] [place], [place], [address] Sodium [Moles/Vol] 138 mmol/L Normal 133-145 [facility] Comment on above: Performed By: #### L 500.2500 #### [facility] [address] [place], [place], [address] Urea nitrogen [Mass/Vol] 32 mg/dL High 4-19 [facility] Comment on above: Performed By: #### L 500.2500 #### [facility] [address] [place], [place], [address] Carbon dioxide, total [Moles /volume] in Central venous bloodOrdered By: Jennifer Bailey on 12-06-2024 CO2 [Moles/Vol] 26.5 mmol/L 21.0-32.0 [facility] Chloride assayOrdered By: Shantell Bailey on 12-06-2024 Chloride [Moles/Vol] 98 mmol/L 98-108 [facility] Glomerular filtration rate ( GFR) estimation/1.73 sq m using serum, plasma, or whole bOrdered By: Jennifer Bailey on 12-06-2024 GFR/1.73 sq M.predicted among non-blacks MDRD (S/P/Bld) [Vol rate/Area] 39 mL/min/{1.73_m2} Low >60 [facility] Comment on above: mL/min/1.73m2 CKD-EP I Creatinine Equation (2020) Potassium measurement (mass/ volume)Ordered By: Jennifer Bailey on 12-06-2024 Potassium (Unsp spec) [Mass/Vol] 4.2 mmol/L 3.3-5.1 [facility] Serum creatinine measurement (mass/volume)Ordered By: Jennifer Bailey on 12-06-2024 Creatinine [Mass/Vol] 1.42 mg/dL High 0.70-1.20 [facility] Serum glucose measurement (m ass/volume)Ordered By: Jennifer Bailey on 12-06-2024 Glucose [Mass/Vol] 169 mg/dL High 70-99 [facility] Serum or plasma calcium shannon urement (mass/volume)Ordered By: Jennifer Bailey on 12-06-2024 Calcium [Mass/Vol] 9.5 mg/dL 7.6-11.0 [facility] Serum or plasma urea nitroge n measurement (mass/volume)Ordered By: Jennifer Bailey on 12-06-2024 Urea nitrogen [Mass/Vol] 32 mg/dL High 4-19 [facility] Sodium levelOrdered By: Estiven trejoe Lynn on 12-06-2024 Sodium [Moles/Vol] 138 mmol/L 133-145 [facility] Pelvic w/ Transvaginalon Pelvic w/ Transvaginal [facility] Imaging Services [address] [place], [place] [address] Pelvic w/ Transvaginal MR#: [id number] Acct: [id number] Name: CHRISTY FRANCIS Rep #: [id number] : 1950 F 74 From: Demarcus dominguez MD PCP: Dr. Marielos Perla DO Status: REG CLI Study: Pelvic w/ Transvaginal Date of Exam: 11/29/24 Exam# [id number] Ordering Dr: Marielos Perla DO PROCEDURE: PELVIC [...] Endometrial thickening. Clinical correlation recommended. Reading Location: [id number] CC: Dr. Marielos Perla, Scarf Gluer: Signed Normal [facility] Anion gap in Serum or Plasma Ordered By: Jennifer Bailey on 11-02-2024 Anion gap [Moles/Vol] 15 mmol/L 5-15 [facility] BUN/creatinine ratioOrdered By: Jennifer Bailey on 11-02-2024 Urea nitrogen/Creatinine [Mass ratio] 20.1 mg/mg High 10-20 [facility] Basic Metabolic Profile (BMP )on 11-02-2024 BUN/CRE 20.1 RATIO High - [facility] Comment on above: Performed By: #### L 500.2500 #### [facility] [address] [place], [address] Calcium [Mass/Vol] 9.9 mg/dL Normal 7.6-11.0 [facility] Comment on above: Performed By: #### L 500.2500 #### [facility] Laboratory [address] [place], [address] Chloride [Moles/Vol] 98 mmol/L Normal 98-108 [facility] Comment on above: Performed By: #### L 500.2500 #### [facility] [address] [facility] [place], [address] CO2 [Moles/Vol] 23.7 mmol/L Normal 21.0-32.0 [facility] Comment on above: Performed By: #### L 500.2500 #### [facility] [address] [place], [address] Creatinine [Mass/Vol] 1.77 mg/dL High 0.70-1.20 [facility] Comment on above: Performed By: #### L 500.2500 #### [facility] [address] [place], [address] GAP 15 Normal 5-15 [facility] Comment on above: Performed By: #### L 500.2500 #### [facility] [address] [place], [address] GFR/1.73 sq M.predicted among non-blacks MDRD (S/P/Bld) [Vol rate/Area] 30 mL/min/{1.73_m2} Low >60 [facility] Comment on above: Result Comment: mL/m in/1.73m2 CKD-EPI Creatinine Equation (2020) Performed By: #### L 500.2500 #### [facility] [address] [place], [address] Glucose [Mass/Vol] 127 mg/dL High 70-99 [facility] Comment on above: Performed By: #### L 500.2500 #### [facility] [address] [place], [address] Potassium [Moles/Vol] 4.8 mmol/L Normal 3.3-5.1 [facility] Comment on above: Performed By: #### L 500.2500 #### [facility] [address] [place], [address] Sodium [Moles/Vol] 137 mmol/L Normal 133-145 [facility] Comment on above: Performed By: #### L 500.2500 #### [facility] [address] [place], [address] Urea nitrogen [Mass/Vol] 36 mg/dL High 4-19 [facility] Comment on above: Performed By: #### L 500.2500 #### [facility] [address] [place], [address] Carbon dioxide, total [Moles /volume] in Central venous bloodOrdered By: Jennifer Bailey on 11-02-2024 CO2 [Moles/Vol] 23.7 mmol/L 21.0-32.0 [facility] Cardiology Visit Reporton Cardiology Visit Report [facility] [address] [place] [address] OFFICE VISIT Date of Service: 11/02/24 MR#: [id number] Acct: [id number] Name: CHRISTY FRANCIS Rep #: [id number] : 1950 Provider: SKYLER Low Age/Sex: 74/F [place] [facility] [place] Status: Signed HPI HPI History of Present Illness Details: This is a 74-year-old white female who presents today for outpatient cardiovascular follow-up visit. She has a history of underlying CAD status post CABG ([facility]: 02-27-2019: FOLEY to the LAD, SVG to OM 2, [...] Intake Visit Reasons: 1 Y FU [employer] Installer Required: No Accompanied by: Self Is patient [...] week 11/02/24 11/02/24 History subcutaneous pen injector (May) Ejection fraction %: 60 Have you fallen in the past year?: Yes (stumbled on treadmill) PFSH Medical History (Updated 11/02/24 @ 10:44 by Jennifer Bailey PA, PA) Severe left ventricular systolic dysfunction (LVSD) Palpitations Right rotator cuff tear Trigger finger of both hands Carpal tunnel syndrome on both sides FHx: cholecystectomy History of left heart catheterization (LHC) ( 06/03/21) Essential hypertension Mechanical loosening of prosthetic knee Atherosclerosis of [place] coronary artery of [place] heart without angina pectoris PAD (peripheral artery disease) HLD (hyperlipidemia) Type II diabetes mellitus Surgical History History of coronary artery bypass graft x 3 ( 02/27/19) History of prosthetic unicompartmental arthroplasty of left knee Family History Mother Heart disease Social History Smoking Status: Light Smoker (<10/day) alcohol intake: current alcohol intake frequency: ho (more content not included)... Normal [facility] Chloride assayOrdered By: Shantell Bailey on 11-02-2024 Chloride [Moles/Vol] 98 mmol/L 98-108 [facility] Glomerular filtration rate ( GFR) estimation/1.73 sq m using serum, plasma, or whole bOrdered By: Jennifer Bailey on 11-02-2024 GFR/1.73 sq M.predicted among non-blacks MDRD (S/P/Bld) [Vol rate/Area] 30 mL/min/{1.73_m2} Low >60 [facility] Comment on above: mL/min/1.73m2 CKD-EP I Creatinine Equation (2020) Potassium measurement (mass/ volume)Ordered By: Jennifer Bailey on 11-02-2024 Potassium (Unsp spec) [Mass/Vol] 4.8 mmol/L 3.3-5.1 [facility] Serum creatinine measurement (mass/volume)Ordered By: Jennifer Bailey on 11-02-2024 Creatinine [Mass/Vol] 1.77 mg/dL High 0.70-1.20 [facility] Serum glucose measurement (m ass/volume)Ordered By: Jennifer Bailey on 11-02-2024 Glucose [Mass/Vol] 127 mg/dL High 70-99 [facility] Serum or plasma calcium shannon urement (mass/volume)Ordered By: Jennifer Bailey on 11-02-2024 Calcium [Mass/Vol] 9.9 mg/dL 7.6-11.0 [facility] Serum or plasma urea nitroge n measurement (mass/volume)Ordered By: Jennifer Bailey on 11-02-2024 Urea nitrogen [Mass/Vol] 36 mg/dL High 4-19 [facility] Sodium levelOrdered By: Estiven Bailey on 11-02-2024 Sodium [Moles/Vol] 137 mmol/L 133-145 [facility] L/S Spine Min 4 Viewson L/S Spine Min 4 Views [facility] [address] [place] [address] L/S Spine Min 4 Views MR#: [id number] Acct: [id number] Name: CHRISTY FRANCIS Rep #: [id number] : 1950 F 74 From: Bryce Serrano MD PCP: Dr. Marielos Perla, Status: REG CLI Study: L/S Spine Min 4 Views Date of Exam: 09/18/24 Exam# [id number] Ordering Dr: Rand Mckeon PUMP TECHNICIAN-Sweetie PROCEDURE: L/S SPINE MIN 4 VIEWS 09/18/2024 REASON FOR EXAM: PAIN, SCIATICA TECHNIQUE: Four views of the lumbar spine COMPARISON: None FINDINGS: There are 5 adj-irc-fadklwj lumbar-type vertebral bodies. The pars are not [...] on L5 is likely degenerative. Reading Location: [id number] CC: JOHNATHON Mckeon; Dr. Marielos Perla DO Scarf Gluer: Signed Normal [facility] Cardiology Visit Reporton Cardiology Visit Report [facility] [place] [id number] [facility] [place] [address] OFFICE VISIT Date of Service: 06/05/24 MR#: [id number] Acct: [id number] Name: CHRISTY FRANCIS Rep #: [id number] : 1950 Provider: JOHNATHON olivas Age/Sex: 74/F Location[place] [facility] Status: Signed HPI HPI History of Present Illness Details: This is a 74-year-old white female who presents today for outpatient cardiovascular follow-up visit. She has a history of underlying CAD status post CABG ([facility]: 02-27-2019: FOLEY to the LAD, SVG to OM 2, [...] Intake Visit Reasons: 3 M FU [employer]er Required: No Is patient in pain?: No [...] Mechanical loosening of prosthetic knee Atherosclerosis of [place] coronary artery of [place] heart without angina pectoris PAD (peripheral artery disease) HLD (hyperlipidemia) Type II diabetes mellitus Surgical History (Updated 06/05/24 @ 11:25 by Charlie Johnson PUMP TECHNICIAN, PUMP TECHNICIAN-C) History of coronary artery bypass graft x 3 ( 02/27/19) History of prosthetic unicompartmental arthroplasty of left knee Family History Mother Heart disease So (more content not included)... Normal [facility] Cardiology Visit Reporton Cardiology Visit Report [facility] [address] [place] [address] OFFICE VISIT Date of Service: 03/09/24 MR#: [id number] Acct: [id number] Name: CHRISTY FRANCIS Rep #: [id number] : 1950 Provider: JOHNATHON olivas Age/Sex: 74/F Location[place] [facility] Status: Signed HPI HPI History of Present Illness Details: This is a 74-year-old white female who presents today for outpatient cardiovascular follow-up visit. 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 Normal [facility] Basophil percentageOrdered B y: Marielos Perla on 06-14-2023 Creatinine [Mass/Vol] 1.4 mg/dL 0.55-1.02 [facility] - Chemistry and C hemistry - challengeOrdered By: Marielos Perla on 06-14-2023 GFR/1.73 sq M.predicted among non-blacks MDRD (S/P/Bld) [Vol rate/Area] 40.0000 mL/min/{1.73_m2} >60 [facility] Absolute lymphocyte countOrd ered By: Marielos Perla on 11-23-2022 Lymphocytes Auto (Unsp spec) [#/Vol] 2.13 10*3/uL 0.83-4.51 [facility] Basophil percentageOrdered B y: Marielos Perla on 11-23-2022 Basophils/100 WBC (Bld) 0.9 % 0-1 [facility] Bilirubin [Mass/Vol] 0.40 mg/dL 0.20-1.00 [facility] Comment on above: For patients on eltr ombopag therapy, use of Dimension [place] TBIL is not recommended. Chloride [Moles/Vol] 106 mmol/L 98-107 [facility] Cholesterol [Mass/Vol] 165 mg/dL <200 [facility] Comment on above: <200 mg/dL Desirable 200-240 mg/dL Borderline >240 mg/dL High Risk Eosinophils/100 WBC (Bld) 7.6 % 0-5 [facility] Glucose [Mass/Vol] 183 mg/dL 74-106 [facility] Comment on above: Fasting Glucose resu lt greater than or equal to 126 mg/dL suggests DIABETES MELLITUS per A.D.A. criteria. Neutrophils (Bld) [#/Vol] 4.6 10*3/uL 2.0-7.7 [facility] Neutrophils/100 WBC (Bld) 55.9 % 47-70 [facility] Potassium [Moles/Vol] 4.3 mmol/L 3.5-5.1 [facility] Protein [Mass/Vol] 7.5 g/dL 6.4-8.2 [facility] Sodium [Moles/Vol] 138 mmol/L 136-145 [facility] Triglyceride [Mass/Vol] 241 mg/dL <199 [facility] Comment on above: The drugs N-Acetylcy steine and Metamizole may falsely depress this assay.Serum Triglycerides Reference Interval Normal <150 mg/dL Borderline high 150 - 199 mg/dL High 200 - 499 mg/dL Very High > or = 500 mg/dL WBC (Bld) [#/Vol] 8.1 10*3/uL 4.4-11.0 [facility] Blood erythrocytes count (nu mber/volume)Ordered By: Marielos Perla on 11-23-2022 RBC (Bld) [#/Vol] 4.97 10*6/uL 4.2-5.4 [facility] Blood hemoglobin measurement (mass/volume)Ordered By: Marielos Perla on 11-23-2022 Hemoglobin (Bld) [Mass/Vol] 15.5 g/dL 12.0-15.0 [facility] Blood lymphocytes/100 leukoc ytesOrdered By: Marielos Perla on 11-23-2022 Lymphocytes/100 WBC (Bld) 26.2 % 19-41 [facility] Blood monocytes/100 leukocyt esOrdered By: Marielos Perla on 11-23-2022 Monocytes/100 WBC (Bld) 9.0 % 0-10 [facility] Blood platelet mean volumeOr dered By: Marielos Perla on 11-23-2022 Platelet mean volume (Bld) [Entitic vol] 11.1 fL 6.2-12.0 [facility] Determination of erythrocyte mean corpuscular volume (MCV)Ordered By: Marielos Perla on 11-23-2022 MCV (RBC) [Entitic vol] 92.6 fL 81-99 [facility] Hematocrit Auto (Bld) [Volum e fraction]Ordered By: Marielos Perla on 11-23-2022 Hematocrit (Bld) [Volume fraction] 46.0 % 37-47 [facility] - Chemistry and C hemistry - challengeOrdered By: Marielos Perla on 11-23-2022 ALP [Catalytic activity/Vol] 65 U/L 45-117 [facility] ALT [Catalytic activity/Vol] 29 U/L 13-56 [facility] CO2 [Moles/Vol] 27.0 mmol/L 21.0-32.0 [facility] Globulin (S) [Mass/Vol] 3.9 g/dL 2.2-4.2 [facility] Urea nitrogen/Creatinine [Mass ratio] 18.0 mg/mg 10-20 [facility] - Hematology and Cell countsOrdered By: Marielos Perla on 11-23-2022 Erythrocyte distribution width (RBC) [Entitic vol] 45.6 fL 35.1-43.9 [facility] Erythrocyte distribution width (RBC) [Ratio] 13.5 % 11.6-14.6 [facility] Immature granulocytes/100 WBC (Bld) 0.400 % 0.0-0.9 [facility] Comment on above: IG% - Immature Granu locytes (promyelocytes, myelocytes and metamyelocytes) > 1% indicates that a LEFT SHIFT is Present. MCH (RBC) [Entitic mass] 31.2 pg 27.0-32.0 [facility] Nucleated RBC/100 WBC (Bld) [Ratio] 0 % 0-5 [facility] MCHC Auto (RBC) [Mass/Vol]Or dered By: Marielos Perla on 11-23-2022 MCHC (RBC) [Mass/Vol] 33.7 g/dL 32-36 [facility] No Panel InformationOrdered By: Marielos Perla on 11-23-2022 Estimated GFR (MDRD) Amer 44 mL/min >60 [facility] Comment on above: GFR Calc Estimated GFR (MDRD) Non-Af Amer 36 mL/min >60 [facility] Comment on above: Non- GFR Calc Urine Microalbumin/Creatinin e Ratio 1038.3 mg/g CRE <30 [facility] Platelets bldOrdered By: Mariposa Perla on 11-23-2022 Platelets (Bld) [#/Vol] 228 10*3/uL 150-450 [facility] Serum or plasma albumin shannon urement (mass/volume)Ordered By: Marielos Perla on 11-23-2022 Albumin [Mass/Vol] 3.6 g/dL 3.2-5.0 [facility] Serum or plasma albumin/glob ulin mass ratioOrdered By: Marielos Perla on 11-23-2022 Albumin/Globulin [Mass ratio] 0.9 {ratio} 0.9-2.4 [facility] Serum or plasma calcium shannon urement (mass/volume)Ordered By: Marielos Perla on 11-23-2022 Calcium [Mass/Vol] 9.1 mg/dL 8.5-10.1 [facility] Serum or plasma cholesterol in HDL measurement (mass/volume)Ordered By: Marielos Perla on 11-23-2022 Cholesterol in HDL [Mass/Vol] 51 mg/dL >40 [facility] Comment on above: The drugs N-Acetylcy steine and Metamizole may falsely depress this assay. Reference Range HDL <40 mg/dL Low HDL Cholesterol HDL >or= 60 mg/dL High HDL Cholesterol Serum or plasma cholesterol in VLDL measurement (mass/volume)Ordered By: Marielos Perla on 11-23-2022 Cholesterol in VLDL [Mass/Vol] 48 mg/dL 5-40 [facility] Serum or plasma creatinine m easurement (mass/volume)Ordered By: Marielos Perla on 11-23-2022 Creatinine [Mass/Vol] 1.50 mg/dL 0.55-1.02 [facility] Comment on above: The validity of the calculated GFR & GFRAA in patients over 70 years has not been determined. Clinical correlation is essential. Serum or plasma low density lipoprotein (LDL) cholesterol measurement (mass/volume)Ordered By: Marielos Perla on 11-23-2022 Cholesterol in LDL [Mass/Vol] 66 mg/dL 0-130 [facility] Serum or plasma urea nitroge n measurement (mass/volume)Ordered By: Marielos Perla on 11-23-2022 Urea nitrogen [Mass/Vol] 27 mg/dL 7-18 [facility] Thin prep Papanicolaou smear with manual screeningOrdered By: Marielos Perla on 11-23-2022 Thin prep Papanicolaou smear with manual screening 24 U/L 15-37 [facility] Thin prep Papanicolaou smear with manual screening 5 5-15 [facility] Thin prep Papanicolaou smear with manual screening 325.0 mg/L NO RANGE EST. [facility] Urine creatinine measurement (mass/volume)Ordered By: Marielos Perla on 11-23-2022 Creatinine (U) [Mass/Vol] 31.30 mg/dL NO RANGE EST. [facility] Basophil percentageOrdered B y: Charlie Johnson on 08-14-2022 Bilirubin [Mass/Vol] 0.30 mg/dL 0.20-1.00 [facility] Comment on above: For patients on eltr ombopag therapy, use of Dimension [place] TBIL is not recommended. Chloride [Moles/Vol] 109 mmol/L 98-107 [facility] Cholesterol [Mass/Vol] 185 mg/dL <200 [facility] Comment on above: <200 mg/dL Desirable 200-240 mg/dL Borderline >240 mg/dL High Risk Glucose [Mass/Vol] 70 mg/dL 74-106 [facility] Potassium [Moles/Vol] 4.2 mmol/L 3.5-5.1 [facility] Protein [Mass/Vol] 7.3 g/dL 6.4-8.2 [facility] Sodium [Moles/Vol] 141 mmol/L 136-145 [facility] Triglyceride [Mass/Vol] 360 mg/dL <199 [facility] Comment on above: The drugs N-Acetylcy steine and Metamizole may falsely depress this assay.Serum Triglycerides Reference Interval Normal <150 mg/dL Borderline high 150 - 199 mg/dL High 200 - 499 mg/dL Very High > or = 500 mg/dL WBC (Bld) [#/Vol] 10.0 10*3/uL 4.4-11.0 [facility] Blood erythrocytes count (nu mber/volume)Ordered By: Charlie Johnson on 08-14-2022 RBC (Bld) [#/Vol] 5.23 10*6/uL 4.2-5.4 [facility] Blood hemoglobin measurement (mass/volume)Ordered By: Charlie Johnson on 08-14-2022 Hemoglobin (Bld) [Mass/Vol] 15.9 g/dL 12.0-15.0 [facility] Blood platelet mean volumeOr dered By: Charlie Johnson on 08-14-2022 Platelet mean volume (Bld) [Entitic vol] 10.5 fL 6.2-12.0 [facility] Determination of erythrocyte mean corpuscular volume (MCV)Ordered By: Charlie Johnson on 08-14-2022 MCV (RBC) [Entitic vol] 95.2 fL 81-99 [facility] Direct bilirubinOrdered By: Charlie Johnson on 08-14-2022 Bilirubin.direct [Mass/Vol] 0.08 mg/dL 0.00-0.30 [facility] Hematocrit Auto (Bld) [Volum e fraction]Ordered By: Charlie Johnson on 08-14-2022 Hematocrit (Bld) [Volume fraction] 49.8 % 37-47 [facility] - Chemistry and C hemistry - challengeOrdered By: Charlie Johnson on 08-14-2022 ALP [Catalytic activity/Vol] 68 U/L 45-117 [facility] ALT [Catalytic activity/Vol] 25 U/L 13-56 [facility] CO2 [Moles/Vol] 28.0 mmol/L 21.0-32.0 [facility] Globulin (S) [Mass/Vol] 4.0 g/dL 2.2-4.2 [facility] Natriuretic peptide B (Bld) [Mass/Vol] 336.8 pg/mL 0-100 [facility] Urea nitrogen/Creatinine [Mass ratio] 19.0 mg/mg 10-20 [facility] - Hematology and Cell countsOrdered By: Charlie Johnson on 08-14-2022 Erythrocyte distribution width (RBC) [Entitic vol] 48.3 fL 35.1-43.9 [facility] Erythrocyte distribution width (RBC) [Ratio] 13.8 % 11.6-14.6 [facility] MCH (RBC) [Entitic mass] 30.4 pg 27.0-32.0 [facility] MCHC Auto (RBC) [Mass/Vol]Or dered By: Charlie Johnson on 08-14-2022 MCHC (RBC) [Mass/Vol] 31.9 g/dL 32-36 [facility] No Panel InformationOrdered By: Charlie Johnson on 08-14-2022 Estimated GFR (MDRD) Amer 49 mL/min >60 [facility] Comment on above: GFR Calc Estimated GFR (MDRD) Non-Af Amer 40 mL/min >60 [facility] Comment on above: Non- GFR Calc Platelets bldOrdered By: Liban Johnson on 08-14-2022 Platelets (Bld) [#/Vol] 309 10*3/uL 150-450 [facility] Serum or plasma albumin shannon urement (mass/volume)Ordered By: Charlie Johnson on 08-14-2022 Albumin [Mass/Vol] 3.3 g/dL 3.2-5.0 [facility] Serum or plasma calcium shannon urement (mass/volume)Ordered By: Charlie Johnson on 08-14-2022 Calcium [Mass/Vol] 9.3 mg/dL 8.5-10.1 [facility] Serum or plasma cholesterol in HDL measurement (mass/volume)Ordered By: Charlie Johnson on 08-14-2022 Cholesterol in HDL [Mass/Vol] 48 mg/dL >40 [facility] Comment on above: The drugs N-Acetylcy steine and Metamizole may falsely depress this assay. Reference Range HDL <40 mg/dL Low HDL Cholesterol HDL >or= 60 mg/dL High HDL Cholesterol Serum or plasma cholesterol in VLDL measurement (mass/volume)Ordered By: Charlie Johnson on 08-14-2022 Cholesterol in VLDL [Mass/Vol] 72 mg/dL 5-40 [facility] Serum or plasma creatinine m easurement (mass/volume)Ordered By: Charlie Johnson on 08-14-2022 Creatinine [Mass/Vol] 1.37 mg/dL 0.55-1.02 [facility] Comment on above: The validity of the calculated GFR & GFRAA in patients over 70 years has not been determined. Clinical correlation is essential. Serum or plasma low density lipoprotein (LDL) cholesterol measurement (mass/volume)Ordered By: Charlie Johnson on 08-14-2022 Cholesterol in LDL [Mass/Vol] 65 mg/dL 0-130 [facility] Serum or plasma urea nitroge n measurement (mass/volume)Ordered By: Charlie Johnson on 08-14-2022 Urea nitrogen [Mass/Vol] 26 mg/dL 7-18 [facility] Thin prep Papanicolaou smear with manual screeningOrdered By: Charlie Johnson on 08-14-2022 Thin prep Papanicolaou smear with manual screening 24 U/L 15-37 [facility] Thin prep Papanicolaou smear with manual screening 4 5-15 [facility] Basophil percentageOrdered B y: Charlie Johnson on 02-25-2022 Bilirubin [Mass/Vol] 0.30 mg/dL 0.20-1.00 [facility] Comment on above: For patients on eltr ombopag therapy, use of Dimension [place] TBIL is not recommended. Cholesterol [Mass/Vol] 156 mg/dL <200 [facility] Comment on above: <200 mg/dL Desirable 200-240 mg/dL Borderline >240 mg/dL High Risk Protein [Mass/Vol] 6.7 g/dL 6.4-8.2 [facility] Triglyceride [Mass/Vol] 213 mg/dL <199 [facility] Comment on above: The drugs N-Acetylcy steine and Metamizole may falsely depress this assay.Serum Triglycerides Reference Interval Normal <150 mg/dL Borderline high 150 - 199 mg/dL High 200 - 499 mg/dL Very High > or = 500 mg/dL Direct bilirubinOrdered By: Charlie Johnson on 02-25-2022 Bilirubin.direct [Mass/Vol] 0.11 mg/dL 0.00-0.30 [facility] Laboratory - Chemistry and C hemistry - challengeOrdered By: Charlie Johnson on 02-25-2022 ALP [Catalytic activity/Vol] 57 U/L 45-117 [facility] ALT [Catalytic activity/Vol] 26 U/L 13-56 [facility] Globulin (S) [Mass/Vol] 3.5 g/dL 2.2-4.2 [facility] Serum or plasma albumin shannon urement (mass/volume)Ordered By: Charlie Johnson on 02-25-2022 Albumin [Mass/Vol] 3.2 g/dL 3.2-5.0 [facility] Serum or plasma cholesterol in HDL measurement (mass/volume)Ordered By: Charlie Johnson on 02-25-2022 Cholesterol in HDL [Mass/Vol] 50 mg/dL >40 [facility] Comment on above: The drugs N-Acetylcy steine and Metamizole may falsely depress this assay. Reference Range HDL <40 mg/dL Low HDL Cholesterol HDL >or= 60 mg/dL High HDL Cholesterol Serum or plasma cholesterol in VLDL measurement (mass/volume)Ordered By: Charlie Johnson on 02-25-2022 Cholesterol in VLDL [Mass/Vol] 43 mg/dL 5-40 [facility] Serum or plasma low density lipoprotein (LDL) cholesterol measurement (mass/volume)Ordered By: Charlie Johnson on 02-25-2022 Cholesterol in LDL [Mass/Vol] 63 mg/dL 0-130 [facility] Thin prep Papanicolaou smear with manual screeningOrdered By: Charlie Johnson on 02-25-2022 Thin prep Papanicolaou smear with manual screening 18 U/L 15-37 [facility] Basic Metabolic Panelon 02-17 Calcium [Mass/Vol] 9.2 mg/dL Normal 8.4-10.4 [facility] Comment on above: Performed By: #### B GLU #### [place] [address] [address], [place] Glucose [Mass/Vol] 170 mg/dL High 70-100 [facility] Comment on above: Performed By: #### B GLU #### [facility] [address], [place] Anion gap [Moles/Vol] 11 Normal [facility] Comment on above: Performed By: #### B GLU #### [facility] [address], [place] CO2 [Moles/Vol] 25 mmol/L Normal 22-30 [facility] Comment on above: Performed By: #### B GLU #### [place] [address] [address] [place], [place] Creatinine [Mass/Vol] 1.21 mg/dL Normal 0.52-1.25 [facility] Comment on above: Performed By: #### B GLU #### [facility] [address] [place] [address] GFR/1.73 sq M predicted among blacks MDRD (S/P/Bld) [Vol rate/Area] 53.5 mL/min/{1.73_m2} Normal >60 [facility] Comment on above: Performed By: #### B GLU #### [address] [place] [address] GFR/1.73 sq M predicted among non-blacks MDRD (S/P/Bld) [Vol rate/Area] 44.1 mL/min/{1.73_m2} Normal >60 [facility] Comment on above: Result Comment: Sour ce- MDRD equation with creatinine calibration to IDMS(NKDEP) eGFR not recommended for drug dose adjustment Performed By: #### B GLU #### [address] [place], [place] Urea nitrogen [Mass/Vol] 28 mg/dL High 7-20 [facility] Comment on above: Performed By: #### B GLU #### [address] [place], [place] Chloride [Moles/Vol] 102 mmol/L Normal 98-107 [facility] Comment on above: Performed By: #### B GLU #### [address] [place], [place] Potassium [Moles/Vol] 4.6 mmol/L Normal 3.5-5.1 [facility] Comment on above: Performed By: #### B GLU #### [address] [place], [place] Sodium [Moles/Vol] 138 mmol/L Normal 135-145 [facility] Comment on above: Performed By: #### B GLU #### [address] [place], [place] Anion gap [Moles/Vol] 11 mmol/L [facility], [place] Calcium [Mass/Vol] 9.2 mg/dL 8.4 - 10. 4 mg/dL [facility], [place] Chloride [Moles/Vol] 102 mmol/L 98 - 10 7 mmol/L [place], [place] CO2 [Moles/Vol] 25 mmol/L 22 - 30 mmol/L [place] Creatinine [Mass/Vol] 1.21 mg/dL 0.52 - 1.25 mg/dL [place] EGFR IF NonAfrican Lithuanian 44.1 mL/min >60 [place] Comment on above: Source- MDRD equatio n with creatinine calibration to IDMS(NKDEP) eGFR not recommended for drug dose adjustment GFR/1.73 sq M predicted among blacks MDRD (S/P/Bld) [Vol rate/Area] 53.5 mL/min/{1.73_m2} >60 [place], [place] Glucose [Mass/Vol] 170 mg/dL High 70 - 100 mg/dL [place] Interpretation and review of laboratory results Abnormal [place] Potassium [Moles/Vol] 4.6 mmol/L 3.5 - 5.1 mmol/L [place] Sodium [Moles/Vol] 138 mmol/L 135 - 145 mmol/L [place] Urea nitrogen [Mass/Vol] 28 mg/dL High 7 - 20 mg/dL [place] Test Performed by [address] [address] [place], [place] CBCon 03-03-2019 Erythrocyte distribution width (RBC) [Ratio] 13.1 % 11.5 - 14.5 % [place] Hematocrit (Bld) [Volume fraction] 32.0 % Low 35 - 47 % [place] Hemoglobin (Bld) [Mass/Vol] 10.6 g/dL Low 11.7 - 16 g/dL [place] Interpretation and review of laboratory results Abnormal [place] MCH (RBC) [Entitic mass] 30.4 pg 26 - 34 pg [place] MCHC (RBC) [Mass/Vol] 33.1 % 32 - 36 % [place] MCV (RBC) [Entitic vol] 91.7 fL 79 - 98 fL [place] Platelet mean volume (Bld) [Entitic vol] 9.4 fL 7.4 - 10.4 fL [place] Platelets (Bld) [#/Vol] 201 10*3/uL 140 - 440 10*3/uL [place] RBC (Bld) [#/Vol] 3.49 10*6/uL Low 3.8 - 5.2 10*6/uL [place] WBC (Bld) [#/Vol] 16.2 10*3/uL High 3.6 - 10.7 10*3/uL [place] Test Performed by [facility], [address] [place] [address] [place], [place] CR Chest Portableon 03-03-20 19 CR Chest Portable Patient Name: CHRISTY FRANCIS Diagnostic Radiology Exam Date/Time 03/03/2019 05:56:23 EST Exam CR Chest Portable Ordering Physician GRANT TAYLOR Accession Number [id number] CPT4 Codes 76893 () Reason For Exam POST OP OPEN [...] Transcribed Date and Time: 03/03/2019 6:46 Normal [facility] Glucose,Bedsideon 03-03-2019 Glucose [Mass/Vol] 220 mg/dL High 70-100 [facility] Comment on above: Result Comment: Test performed by glucose meter. Results may be 10%-15% lower than serum/plasma values. (CLIA ID [id number]) Performed By: #### B GLU #### [facility] [address], [place] Glucose [Mass/Vol] 224 mg/dL High 70-100 [facility] Comment on above: Result Comment: Test performed by glucose meter. Results may be 10%-15% lower than serum/plasma values. (CLIA ID [id number]) Performed By: #### B GLU #### [address] [place], [place] Hemogramon 03-03-2019 Erythrocyte distribution width (RBC) [Ratio] 13.1 % Normal 11.5-14.5 [facility] Comment on above: Performed By: #### B GLU #### [address] [place], [place] Hematocrit (Bld) [Volume fraction] 32.0 % Low 35.0-47.0 [facility] Comment on above: Performed By: #### B GLU #### [address] [place], [place] Hemoglobin (Bld) [Mass/Vol] 10.6 g/dL Low 11.7-16.0 [facility] Comment on above: Performed By: #### B GLU #### [address] [place], [place] MCH (RBC) [Entitic mass] 30.4 pg Normal 26.0-34.0 [facility] Comment on above: Performed By: #### B GLU #### [address] [place], [place] MCHC (RBC) [Mass/Vol] 33.1 % Normal 32.0-36.0 [facility] Comment on above: Performed By: #### B GLU #### [address] [address] [place], [place] MCV (RBC) [Entitic vol] 91.7 fL Normal 79.0-98.0 [facility] Comment on above: Performed By: #### B GLU #### [address] [place], [place] Platelet mean volume (Bld) [Entitic vol] 9.4 fL Normal 7.4-10.4 [facility] Comment on above: Performed By: #### B GLU #### [facility] [address], [place] Platelets (Bld) [#/Vol] 201 10*3/uL Normal 140-440 [facility] Comment on above: Performed By: #### B GLU #### [facility] [address], [place] RBC (Bld) [#/Vol] 3.49 10*6/uL Low 3.80-5.20 [facility] Comment on above: Performed By: #### B GLU #### [facility] [address], [place] WBC (Bld) [#/Vol] 16.2 10*3/uL High 3.6-10.7 [facility] Comment on above: Performed By: #### B GLU #### [facility] [address], [place] POCT Glucoseon 03-03-2019 Glucose [Mass/Vol] 220 mg/dL High 70 - 100 mg/dL [place] Comment on above: Test performed by gl ucose meter. Results may be 10%-15% lower than serum/plasma values. (CLIA ID [id number]) Interpretation and review of laboratory results Abnormal [facility] [place], [place] Test Performed by [facility], [address] [place] [address] [facility] [place] Glucose [Mass/Vol] 224 mg/dL High 70 - 100 mg/dL [place] Comment on above: Test performed by gl ucose meter. Results may be 10%-15% lower than serum/plasma values. (CLIA ID [id number]) Interpretation and review of laboratory results Abnormal [facility] [place] Test Performed by [facility], [address] [place] [address] [facility], [place] XR CHEST PORTABLEon 03-03-20 19 Brian, [facility] Incoming Radiology Results From [facility] - 03/03/2019 6:48 AM EST Patient Name: CHRISTY FRANCIS ---Diagnostic Radiology--- Exam Date/Time 03/03/2019 05:56:23 EST Exam CR Chest Portable Ordering Physician GRANT TAYLOR Accession Number [id number] CPT4 Codes 68763 () Reason For Exam POST OP OPEN [...] No new abnormality. Report Dictated on Workstation: [id number] --- Final --- Dictated: 03/03/2019 6:46 am Dictating Physician: MD SOLORZANO JEFFREY Signed Date and Time: 03/03/2019 6:46 am Signed by: MD SOLORZANO JEFFREY Transcribed Date and Time: 03/03/2019 6:46 [place], [place] Patient Name: CHRISTY FRANCIS ---Diagnostic Radiology--- Exam Date/Time 03/03/2019 05:56:23 EST Exam CR Chest Portable Ordering Physician GRANT TAYLOR Accession Number [id number] CPT4 Codes 37097 () Reason For Exam POST OP OPEN [...] No new abnormality. Report Dictated on Workstation: [id number] --- Final --- Dictated: 03/03/2019 6:46 am Dictating Physician: MD SOLORZANO JEFFREY Signed Date and Time: 03/03/2019 6:46 am Signed by: MD SOLORZANO JEFFREY Transcribed Date and Time: 03/03/2019 6:46 [facility], [place] Basic Metabolic Panelon 02-17 Calcium [Mass/Vol] 9.3 mg/dL Normal 8.4-10.4 [facility] Comment on above: Performed By: #### B GLU #### [facility] [address], [place] Anion gap [Moles/Vol] 10 Normal [facility] Comment on above: Performed By: #### B GLU #### [facility] [address], [place] CO2 [Moles/Vol] 22 mmol/L Normal 22-30 [facility] Comment on above: Performed By: #### B GLU #### [address] [place], [place] Creatinine [Mass/Vol] 1.24 mg/dL Normal 0.52-1.25 [facility] Comment on above: Performed By: #### B GLU #### [facility] [address], [place] GFR/1.73 sq M predicted among blacks MDRD (S/P/Bld) [Vol rate/Area] 52.0 mL/min/{1.73_m2} Normal >60 [facility] Comment on above: Performed By: #### B GLU #### [facility] [address], [place] GFR/1.73 sq M predicted among non-blacks MDRD (S/P/Bld) [Vol rate/Area] 42.9 mL/min/{1.73_m2} Normal >60 [facility] Comment on above: Result Comment: Sour ce- MDRD equation with creatinine calibration to IDMS(NKDEP) eGFR not recommended for drug dose adjustment Performed By: #### B GLU #### [facility] [address], [place] Glucose [Mass/Vol] 253 mg/dL High 70-100 [facility] Comment on above: Performed By: #### B GLU #### [address] [place], [place] Urea nitrogen [Mass/Vol] 32 mg/dL High 7-20 [facility] Comment on above: Performed By: #### B GLU #### [facility] [address] [place] [address] Chloride [Moles/Vol] 104 mmol/L Normal 98-107 [facility] Comment on above: Performed By: #### B GLU #### [facility] [address] [place] [address] Potassium [Moles/Vol] 5.0 mmol/L Normal 3.5-5.1 [facility] Comment on above: Performed By: #### B GLU #### [facility] [address] [place] [address] Sodium [Moles/Vol] 135 mmol/L Normal 135-145 [facility] Comment on above: Performed By: #### B GLU #### [facility] [address] [place] [address] Anion gap [Moles/Vol] 10 mmol/L [place] Calcium [Mass/Vol] 9.3 mg/dL 8.4 - 10. 4 mg/dL [place] Chloride [Moles/Vol] 104 mmol/L 98 - 10 7 mmol/L [place] CO2 [Moles/Vol] 22 mmol/L 22 - 30 mmol/L [place] Creatinine [Mass/Vol] 1.24 mg/dL 0.52 - 1.25 mg/dL [place] EGFR IF NonAfrican Lithuanian 42.9 mL/min >60 [place] Comment on above: Source- MDRD equatio n with creatinine calibration to IDMS(NKDEP) eGFR not recommended for drug dose adjustment GFR/1.73 sq M predicted among blacks MDRD (S/P/Bld) [Vol rate/Area] 52.0 mL/min/{1.73_m2} >60 [place] Glucose [Mass/Vol] 253 mg/dL High 70 - 100 mg/dL [place] Interpretation and review of laboratory results Abnormal [place] Potassium [Moles/Vol] 5.0 mmol/L 3.5 - 5.1 mmol/L [place] Sodium [Moles/Vol] 135 mmol/L 135 - 145 mmol/L [place] Urea nitrogen [Mass/Vol] 32 mg/dL High 7 - 20 mg/dL [place] Test Performed by [facility], [address] [place] [address] [place] CBCon 03-02-2019 Erythrocyte distribution width (RBC) [Ratio] 13.2 % 11.5 - 14.5 % [place] Hematocrit (Bld) [Volume fraction] 33.8 % Low 35 - 47 % [place] Hemoglobin (Bld) [Mass/Vol] 11.0 g/dL Low 11.7 - 16 g/dL [place] Interpretation and review of laboratory results Abnormal [place] MCH (RBC) [Entitic mass] 30.3 pg 26 - 34 pg [place] MCHC (RBC) [Mass/Vol] 32.6 % 32 - 36 % [place] MCV (RBC) [Entitic vol] 92.7 fL 79 - 98 fL [place] Platelet mean volume (Bld) [Entitic vol] 10.7 fL High 7.4 - 10.4 fL [place] Platelets (Bld) [#/Vol] 169 10*3/uL 140 - 440 10*3/uL [place] RBC (Bld) [#/Vol] 3.65 10*6/uL Low 3.8 - 5.2 10*6/uL [place] WBC (Bld) [#/Vol] 18.8 10*3/uL High 3.6 - 10.7 10*3/uL [place] Test Performed by [facility], [address] [place] [address] [place] CR Chest Portableon 03-02-20 19 CR Chest Portable Patient Name: CHRISTY FRANCIS Diagnostic Radiology Exam Date/Time 03/02/2019 06:07:22 EST Exam CR Chest Portable Ordering Physician GRANT TAYLOR Accession Number [id number] CPT4 Codes 30163 () Reason For Exam POST OP OPEN [...] Transcribed Date and Time: 03/02/2019 6:14 Normal [facility] Echocardiogram transesophage pedro pablo 03-02-2019 Brian, [facility] Incoming Cardiology Results From [facility] - 03/02/2019 8:47 AM EST TRANSESOPHAGEAL ECHOCARDIOGRAM Intraoperative-Pre Pump Only PATIENT: Christy Francis STUDY DATE: 02/27/2019 : 1950 AGE: 69 HT/WT: 154.9 cm (61 80 kg in) (176 lb) GENDER: F BP: 98 / 57 LOCATION: [facility] PATIENT Inpatient [facility] STATUS: *ORDERING PHYSICIAN: * Ronda Carmona *READING PHYSICIAN: * Michi Dewitt, *[employer] LEAD WORKER: Janice Austin MD INDICATIONS: CABG. CONCLUSIONS SUMMARY: 1. Left ventricle: [...] Michi Dewitt MD 03/02/2019 08:46 Prior Signatures: [facility] TRANSESOPHAGEAL ECHOCARDIOGRAM Intraoperative-Pre Pump Only PATIENT: Christy Francis STUDY DATE: 02/27/2019 : 1950 AGE: 69 HT/WT: 154.9 cm (61 80 kg in) (176 lb) GENDER: F BP: 98 / 57 LOCATION: [facility] PATIENT Inpatient [facility] STATUS: *ORDERING PHYSICIAN: * Ronda Carmona *READING PHYSICIAN: * Michi Dewitt, *WAFER PRODUCTION LEAD WORKER: * Janice Trivedi MD [facility] INDICATIONS: CABG. CONCLUSIONS SUMMARY: 1. Left [...] Michi Dewitt MD 03/02/2019 08:46 Prior Signatures: [facility] Glucose,Bedsideon 03-02-2019 Glucose [Mass/Vol] 168 mg/dL High 70-100 [facility] Comment on above: Result Comment: Test performed by glucose meter. Results may be 10%-15% lower than serum/plasma values. (CLIA ID [id number]) Performed By: #### B GLU #### [facility] [address], [place] Glucose [Mass/Vol] 249 mg/dL High 70-100 [facility] Comment on above: Result Comment: Test performed by glucose meter. Results may be 10%-15% lower than serum/plasma values. (CLIA ID [id number]) Performed By: #### B GLU #### [facility] [address], [place] Glucose [Mass/Vol] 324 mg/dL High 70-100 [facility] Comment on above: Result Comment: Test performed by glucose meter. Results may be 10%-15% lower than serum/plasma values. (CLIA ID [id number]) Performed By: #### B GLU #### [facility] [address], [place] Glucose [Mass/Vol] 347 mg/dL High 70-100 [facility] Comment on above: Result Comment: Test performed by glucose meter. Results may be 10%-15% lower than serum/plasma values. (CLIA ID [id number]) Performed By: #### B GLU #### [facility] [address], [place] Hemogramon 03-02-2019 Erythrocyte distribution width (RBC) [Ratio] 13.2 % Normal 11.5-14.5 [facility] Comment on above: Performed By: #### B GLU #### [facility] [address], [place] Hematocrit (Bld) [Volume fraction] 33.8 % Low 35.0-47.0 [facility] Comment on above: Performed By: #### B GLU #### [facility] [address], [place] Hemoglobin (Bld) [Mass/Vol] 11.0 g/dL Low 11.7-16.0 [facility] Comment on above: Performed By: #### B GLU #### [address] [place], [place] MCH (RBC) [Entitic mass] 30.3 pg Normal 26.0-34.0 [facility] Comment on above: Performed By: #### B GLU #### [address] [place], [place] MCHC (RBC) [Mass/Vol] 32.6 % Normal 32.0-36.0 [facility] Comment on above: Performed By: #### B GLU #### [address] [place], [place] MCV (RBC) [Entitic vol] 92.7 fL Normal 79.0-98.0 [facility] Comment on above: Performed By: #### B GLU #### [address] [place], [place] Platelet mean volume (Bld) [Entitic vol] 10.7 fL High 7.4-10.4 [facility] Comment on above: Performed By: #### B GLU #### [address] [place], [place] Platelets (Bld) [#/Vol] 169 10*3/uL Normal 140-440 [facility] Comment on above: Performed By: #### B GLU #### [address] [place], [place] RBC (Bld) [#/Vol] 3.65 10*6/uL Low 3.80-5.20 [facility] Comment on above: Performed By: #### B GLU #### [address] [place], [place] WBC (Bld) [#/Vol] 18.8 10*3/uL High 3.6-10.7 [facility] Comment on above: Performed By: #### B GLU #### [address] [place], [place] POCT Glucoseon 11-14-2019 Glucose [Mass/Vol] 168 mg/dL High 70 - 100 mg/dL [facility] [place] Comment on above: Test performed by gl ucose meter. Results may be 10%-15% lower than serum/plasma values. (CLIA ID [id number]) Interpretation and review of laboratory results Abnormal [facility] Test Performed by [facility], [address] [place] [address] [facility] [place] Glucose [Mass/Vol] 249 mg/dL High 70 - 100 mg/dL [facility] [place] Comment on above: Test performed by gl ucose meter. Results may be 10%-15% lower than serum/plasma values. (CLIA ID [id number]) Interpretation and review of laboratory results Abnormal [facility] [place] Test Performed by [facility], [address] [place] [address] [facility] Glucose [Mass/Vol] 324 mg/dL High 70 - 100 mg/dL [facility] [place] Comment on above: Test performed by gl ucose meter. Results may be 10%-15% lower than serum/plasma values. (CLIA ID [id number]) Interpretation and review of laboratory results Abnormal [facility] [place] Test Performed by [facility], [address] [place] [address] [facility] Glucose [Mass/Vol] 347 mg/dL High 70 - 100 mg/dL [facility] [place] Comment on above: Test performed by gl ucose meter. Results may be 10%-15% lower than serum/plasma values. (CLIA ID [id number]) Interpretation and review of laboratory results Abnormal [facility] Test Performed by [facility], [address] [place] [address] [facility] XR CHEST PORTABLEon 03-02-20 19 Brian, [facility] Incoming Radiology Results From [facility] - 03/02/2019 6:17 AM EST Patient Name: CHRISTY FRANCIS ---Diagnostic Radiology--- Exam Date/Time 03/02/2019 06:07:22 EST Exam CR Chest Portable Ordering Physician GRANT TAYLOR Accession Number [id number] CPT4 Codes 19921 () Reason For Exam POST OP OPEN [...] JEFFREY Transcribed Date and Time: 03/02/2019 6:14 [place], [place] Patient Name: CHRISTY FRANCIS ---Diagnostic Radiology--- Exam Date/Time 03/02/2019 06:07:22 EST Exam CR Chest Portable Ordering Physician GRANT TAYLOR Accession Number [id number] CPT4 Codes 39356 () Reason For Exam POST OP OPEN [...] JEFFREY Transcribed Date and Time: 03/02/2019 6:14 [place] Basic Metabolic Panelon - Calcium [Mass/Vol] 8.9 mg/dL Normal 8.4-10.4 [facility] Comment on above: Performed By: #### B GLU #### [facility] [address], [place] Glucose [Mass/Vol] 293 mg/dL High 70-100 [facility] Comment on above: Performed By: #### B GLU #### [facility] [address], [place] Anion gap [Moles/Vol] 11 Normal [facility] Comment on above: Performed By: #### B GLU #### [address] [place], [place] CO2 [Moles/Vol] 20 mmol/L Low 22-30 [facility] Comment on above: Performed By: #### B GLU #### [address] [place], [place] Creatinine [Mass/Vol] 1.40 mg/dL High 0.52-1.25 [facility] Comment on above: Performed By: #### B GLU #### [address] [place], [place] GFR/1.73 sq M predicted among blacks MDRD (S/P/Bld) [Vol rate/Area] 45.2 mL/min/{1.73_m2} Normal >60 [facility] Comment on above: Performed By: #### B GLU #### [address] [place], [place] GFR/1.73 sq M predicted among non-blacks MDRD (S/P/Bld) [Vol rate/Area] 37.3 mL/min/{1.73_m2} Normal >60 [facility] Comment on above: Result Comment: Sour ce- MDRD equation with creatinine calibration to IDMS(NKDEP) eGFR not recommended for drug dose adjustment Performed By: #### B GLU #### [facility] [address], [place] Urea nitrogen [Mass/Vol] 33 mg/dL High 7-20 [facility] Comment on above: Performed By: #### B GLU #### [address] [place], [place] Chloride [Moles/Vol] 102 mmol/L Normal 98-107 [facility] Comment on above: Performed By: #### B GLU #### [facility] [address], [place] Potassium [Moles/Vol] 5.5 mmol/L High 3.5-5.1 [facility] Comment on above: Performed By: #### B GLU #### [facility] [address], [place] Sodium [Moles/Vol] 132 mmol/L Low 135-145 [facility] Comment on above: Performed By: #### B GLU #### [facility] [address], [place] Anion gap [Moles/Vol] 11 mmol/L [place], [place] Calcium [Mass/Vol] 8.9 mg/dL 8.4 - 10. 4 mg/dL [place] Chloride [Moles/Vol] 102 mmol/L 98 - 10 7 mmol/L [place] CO2 [Moles/Vol] 20 mmol/L Low 22 - 30 mmol/L [place] Creatinine [Mass/Vol] 1.4 mg/dL High 0.52 - 1.25 mg/dL [place] EGFR IF NonAfrican Lithuanian 37.3 mL/min >60 [place] Comment on above: Source- MDRD equatio n with creatinine calibration to IDMS(NKDEP) eGFR not recommended for drug dose adjustment GFR/1.73 sq M predicted among blacks MDRD (S/P/Bld) [Vol rate/Area] 45.2 mL/min/{1.73_m2} >60 [place] Glucose [Mass/Vol] 293 mg/dL High 70 - 100 mg/dL [place] Interpretation and review of laboratory results Abnormal [place] Potassium [Moles/Vol] 5.5 mmol/L High 3.5 - 5.1 mmol/L [place] Sodium [Moles/Vol] 132 mmol/L Low 135 - 145 mmol/L [facility] [place] Urea nitrogen [Mass/Vol] 33 mg/dL High 7 - 20 mg/dL [facility], [place] Test Performed by [facility], [address] [place] [address] [place], [place] Calcium [Mass/Vol] 9.1 mg/dL Normal 8.4-10.4 [facility] Comment on above: Performed By: #### H EMOG, BMP3, MG3 ####[facility] [id number] [place], [place] Anion gap [Moles/Vol] 10 Normal [facility] Comment on above: Performed By: #### H EMOG, BMP3, MG3 ####[facility] [id number] [place], [place] CO2 [Moles/Vol] 22 mmol/L Normal 22-30 [facility] Comment on above: Performed By: #### H EMOG, BMP3, MG3 ####[facility] [id number] [place], [place] Creatinine [Mass/Vol] 1.63 mg/dL High 0.52-1.25 [facility] Comment on above: Performed By: #### H EMOG, BMP3, MG3 ####[employer] [id number] [place], [place] GFR/1.73 sq M predicted among blacks MDRD (S/P/Bld) [Vol rate/Area] 37.9 mL/min/{1.73_m2} Normal >60 [facility] Comment on above: Performed By: #### H EMOG, BMP3, MG3 ####[facility] [id number] [place], [place] GFR/1.73 sq M predicted among non-blacks MDRD (S/P/Bld) [Vol rate/Area] 31.3 mL/min/{1.73_m2} Normal >60 [facility] Comment on above: Result Comment: Sour ce- MDRD equation with creatinine calibration to IDMS(NKDEP) eGFR not recommended for drug dose adjustment Performed By: #### H EMOG, BMP3, MG3 ####[address] [place] [address] Glucose [Mass/Vol] 90 mg/dL Normal 70-100 [facility] Comment on above: Performed By: #### H SANGEETA AVILA3, MG3 ####[address] [place] [address] Urea nitrogen [Mass/Vol] 32 mg/dL High 7-20 [facility] Comment on above: Performed By: #### H AUSTIN BMP3, MG3 ####[address] [place] [address] Chloride [Moles/Vol] 108 mmol/L High 98-107 [facility] Comment on above: Performed By: #### H SANGEETA AVILA3, MG3 ####[address] [place] [address] Potassium [Moles/Vol] 5.7 mmol/L High 3.5-5.1 [facility] Comment on above: Performed By: #### H SANGEETA AVILA3, MG3 ####[address] [place] [address] Sodium [Moles/Vol] 140 mmol/L Normal 135-145 [facility] Comment on above: Performed By: #### H SANGEETA AVILA3, MG3 ####[address] [address] Anion gap [Moles/Vol] 10 mmol/L [place] Calcium [Mass/Vol] 9.1 mg/dL 8.4 - 10. 4 mg/dL [place] Chloride [Moles/Vol] 108 mmol/L High 98 - 10 7 mmol/L [place] CO2 [Moles/Vol] 22 mmol/L 22 - 30 mmol/L [place] Creatinine [Mass/Vol] 1.63 mg/dL High 0.52 - 1.25 mg/dL [place] EGFR IF NonAfrican [place]ian 31.3 mL/min >60 [place] Comment on above: Source- MDRD equatio n with creatinine calibration to IDMS(NKDEP) eGFR not recommended for drug dose adjustment GFR/1.73 sq M predicted among blacks MDRD (S/P/Bld) [Vol rate/Area] 37.9 mL/min/{1.73_m2} >60 [place] Glucose [Mass/Vol] 90 mg/dL 70 - 100 mg/dL [place] Interpretation and review of laboratory results Abnormal [place] Potassium [Moles/Vol] 5.7 mmol/L High 3.5 - 5.1 mmol/L [place] Sodium [Moles/Vol] 140 mmol/L 135 - 145 mmol/L [place] Urea nitrogen [Mass/Vol] 32 mg/dL High 7 - 20 mg/dL [place] CBCon 03-01-2019 Erythrocyte distribution width (RBC) [Ratio] 13.5 % 11.5 - 14.5 % [place] Hematocrit (Bld) [Volume fraction] 34.2 % Low 35 - 47 % [place] Hemoglobin (Bld) [Mass/Vol] 11.1 g/dL Low 11.7 - 16 g/dL [place] Interpretation and review of laboratory results Abnormal [place] MCH (RBC) [Entitic mass] 30.1 pg 26 - 34 pg [place] MCHC (RBC) [Mass/Vol] 32.4 % 32 - 36 % [place] MCV (RBC) [Entitic vol] 92.9 fL 79 - 98 fL [place] Platelet mean volume (Bld) [Entitic vol] 9.8 fL 7.4 - 10.4 fL [place] Platelets (Bld) [#/Vol] 151 10*3/uL 140 - 440 10*3/uL [place] RBC (Bld) [#/Vol] 3.68 10*6/uL Low 3.8 - 5.2 10*6/uL [place] WBC (Bld) [#/Vol] 17.8 10*3/uL High 3.6 - 10.7 10*3/uL [place] CR Chest Portableon 03-01-20 19 CR Chest Portable Patient Name: CHRISTY FRANCIS Diagnostic Radiology Exam Date/Time 03/01/2019 07:10:13 EST Exam CR Chest Portable Ordering Physician GRANT TAYLOR Accession Number [id number] CPT4 Codes 79702 () Reason For Exam sob Report CLINICAL INFORMATION: Shortness of breath. Status post open heart surgery. CHEST X-RAY, PORTABLE, 0537 hours: An AP portable view is compared to the prior examination of previous day. There is no change in the mediastinal or left lower hemithorax chest tubes or right internal jugular Bamberg-Jose introducer sheath. There is stable slightly limited lung volumes. No pneumothorax or other acute process or interval change identified. 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1950 Requested By: GRANT TAYLOR A Order Number: [id number] Reading MD: Saray Yates Measurements Intervals [place] Rate: 97 P: 62 OK: 139 QRS: 28 QRSD: 67 T: 83 QT: 327 QTc: 416 Interpretive Statements Sinus rhythm Inferior infarct, acute Electronically Signed On 03-01-2019 9:20:04 EST by Lebronlei [facility] [place] [facility] Incoming Cardiology Results From [facility] - 03/01/2019 9:21 AM EST [facility] Test Date: 2019-03-01 Pat Name: Christy Francis Department: 1AU Room: 1H04 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 Results may be 10%-15% lower than serum/plasma values. (CLIA ID [id number]) Performed By: #### B GLU #### [facility] [address] [place] [address] Glucose [Mass/Vol] 357 mg/dL High 70-100 [facility] Comment on above: Result Comment: Test performed by glucose meter. Results may be 10%-15% lower than serum/plasma values. (CLIA ID [id number]) Performed By: #### B GLU #### [employer] [facility] [address] [place] [address] Glucose [Mass/Vol] 92 mg/dL Normal 70-100 [facility] Comment on above: Result Comment: Test performed by glucose meter. Results may be 10%-15% lower than serum/plasma values. (CLIA ID [id number]) Performed By: #### B GLU ####[employer] [address] [place] [address] Glucose [Mass/Vol] 85 mg/dL Normal 70-100 [facility] Comment on above: Result Comment: Test performed by glucose meter. Results may be 10%-15% lower than serum/plasma values. (CLIA ID [id number]) Performed By: #### B GLU #### [employer] [facility] [address] [place] [address] Glucose [Mass/Vol] 95 mg/dL Normal 70-100 [facility] Comment on above: Result Comment: Test performed by glucose meter. Results may be 10%-15% lower than serum/plasma values. (CLIA ID [id number]) Performed By: #### B GLU #### [facility] [address] [place] [address] Glucose [Mass/Vol] 111 mg/dL High 70-100 [facility] Comment on above: Result Comment: Test performed by glucose meter. Results may be 10%-15% lower than serum/plasma values. (CLIA ID [id number]) Performed By: #### B GLU #### [facility] [address] [facility] [place] [address] Glucose [Mass/Vol] 149 mg/dL High 70-100 [facility] Comment on above: Result Comment: Test performed by glucose meter. Results may be 10%-15% lower than serum/plasma values. (CLIA ID [id number]) Performed By: #### B GLU #### [facility] [address] [place] [address] Glucose [Mass/Vol] 153 mg/dL High 70-100 [facility] Comment on above: Result Comment: Test performed by glucose meter. Results may be 10%-15% lower than serum/plasma values. (CLIA ID [id number]) Performed By: #### B GLU #### [facility] [address] [facility] [place] [address] Glucose [Mass/Vol] 165 mg/dL High 70-100 [facility] Comment on above: Result Comment: Test performed by glucose meter. Results may be 10%-15% lower than serum/plasma values. (CLIA ID [id number]) Performed By: #### B GLU #### [facility] [address] [place] [address] Glucose [Mass/Vol] 150 mg/dL High 70-100 [facility] Comment on above: Result Comment: Test performed by glucose meter. Results may be 10%-15% lower than serum/plasma values. (CLIA ID [id number]) Performed By: #### B GLU #### [facility] [address] [facility] [place] [address] Glucose [Mass/Vol] 172 mg/dL High 70-100 [facility] Comment on above: Result Comment: Test performed by glucose meter. Results may be 10%-15% lower than serum/plasma values. (CLIA ID [id number]) Performed By: #### B GLU #### [employer] [facility] [address] [place] [place] [address] Glucose [Mass/Vol] 112 mg/dL High 70-100 [facility] Comment on above: Result Comment: Test performed by glucose meter. Results may be 10%-15% lower than serum/plasma values. (CLIA ID [id number]) Performed By: #### B GLU ####[employer] [address] [facility] [place] [address] Glucose [Mass/Vol] 96 mg/dL Normal 70-100 [facility] Comment on above: Result Comment: Test performed by glucose meter. Results may be 10%-15% lower than serum/plasma values. (CLIA ID [id number]) Performed By: #### B GLU ####[employer] [address] [place] [address] Glucose [Mass/Vol] 95 mg/dL Normal 70-100 [facility] Comment on above: Result Comment: Test performed by glucose meter. Results may be 10%-15% lower than serum/plasma values. (CLIA ID [id number]) Performed By: #### B GLU ####[employer] [facility] [place] [address] Glucose [Mass/Vol] 136 mg/dL High 70-100 [facility] Comment on above: Result Comment: Test performed by glucose meter. Results may be 10%-15% lower than serum/plasma values. (CLIA ID [id number]) Performed By: #### B GLU ####[employer] [address] [facility] [place] [address] Glucose [Mass/Vol] 162 mg/dL High 70-100 [facility] Comment on above: Result Comment: Test performed by glucose meter. Results may be 10%-15% lower than serum/plasma values. (CLIA ID [id number]) Performed By: #### B GLU ####[employer] [address] [place] [address] Hematologyon 03-01-2019 ABO and Rh group Nom (Bld) 6[address] [facility], [place] Hemogramon 03-01-2019 Erythrocyte distribution width (RBC) [Ratio] 13.5 % Normal 11.5-14.5 [facility] Comment on above: Performed By: #### H SANGEETA AVILA3, MG3 ####[address] [place], [place] Hematocrit (Bld) [Volume fraction] 34.2 % Low 35.0-47.0 [facility] Comment on above: Performed By: #### H AUSTIN BMP3, MG3 ####[address] [place], [place] Hemoglobin (Bld) [Mass/Vol] 11.1 g/dL Low 11.7-16.0 [facility] Comment on above: Performed By: #### Papito AVILA BMP3, MG3 ####[address] MCH (RBC) [Entitic mass] 30.1 pg Normal 26.0-34.0 [facility] Comment on above: Performed By: #### H SANGEETA AVILA3, MG3 ####[address] [place], [place] MCHC (RBC) [Mass/Vol] 32.4 % Normal 32.0-36.0 [facility] Comment on above: Performed By: #### H AUSTIN BMP3, MG3 ####[address] MCV (RBC) [Entitic vol] 92.9 fL Normal 79.0-98.0 [facility] Comment on above: Performed By: #### H AUSTIN BMP3, MG3 ####[address] [place], [place] Platelet mean volume (Bld) [Entitic vol] 9.8 fL Normal 7.4-10.4 [facility] Comment on above: Performed By: #### Papito AVILA BMP3, MG3 ####[address] [place] Platelets (Bld) [#/Vol] 151 10*3/uL Normal 140-440 [facility] Comment on above: Performed By: #### H AUSTIN, BMP3, MG3 ####[facility] [place], [place] RBC (Bld) [#/Vol] 3.68 10*6/uL Low 3.80-5.20 [facility] Comment on above: Performed By: #### H GILLESG, BMP3, MG3 ####[facility] [place], [place] WBC (Bld) [#/Vol] 17.8 10*3/uL High 3.6-10.7 [facility] Comment on above: Performed By: #### H AUSTIN, BMP3, MG3 ####[facility] [place], [place] Leukodepleted Red Cellson Leukodepleted Red Cells Leukodepleted Red Cells: [id number] released 03/01/19 07:45 JMV Unit Blood Type: A Unit Blood Rh: POS Blood Product Code: AS1 Unit Number: [id number] Unit Status: released Barcoded Unit Number: =[id number] Barcoded Product Code: = Barcoded ABO/Rh: =%6200 Unit Expiration: [id number] Leukodepleted Red Cells: [id number] released 03/01/19 07:45 JMV Unit Blood Type: A Unit Blood Rh: POS Blood Product Code: AS1 Unit Number: [id number] Unit Status: released Barcoded Unit Number: =[id number] Barcoded Product Code: = Barcoded ABO/Rh: =%6200 Unit Expiration: [id number] Normal [facility] Comment on above: Performed By: #### H EMOG, CMP3M #### [facility] [address] [place], [place] Magnesiumon 03-01-2019 Magnesium [Mass/Vol] 2.1 mg/dL Normal 1.6-2.3 [facility] Comment on above: Performed By: #### H EMO, BMP3, MG3 ####[facility] [place] [address] Magnesium [Mass/Vol] 2.1 mg/dL 1.6 - 2 .3 mg/dL [place], [place] Metabolic Panelon 03-01-2019 Sodium [Moles/Vol] [id number] [place] Sodium [Moles/Vol] [id number] mmol/L [place], [place] Sodium [Moles/Vol] released [place] Otheron 03-01-2019 Test Performed by [facility], [facility] [address] Test Performed by [facility], [facility] [address] POCT Glucoseon 03-01-2019 Glucose [Mass/Vol] 334 mg/dL High 70 - 100 mg/dL [place] Comment on above: Test performed by gl ucose meter. Results may be 10%-15% lower than serum/plasma values. (CLIA ID [id number]) Interpretation and review of laboratory results Abnormal [place] Test Performed by [facility], [facility] [address] [place], [place] [address] [place] [address] Glucose [Mass/Vol] 357 mg/dL High 70 - 100 mg/dL [place] Comment on above: Test performed by gl ucose meter. Results may be 10%-15% lower than serum/plasma values. (CLIA ID [id number]) Interpretation and review of laboratory results Abnormal [place] Test Performed by [facility], [facility] [address] [place], [place] [address] [place] [address] Glucose [Mass/Vol] 85 mg/dL 70 - 100 mg/dL [place] Comment on above: Test performed by gl ucose meter. Results may be 10%-15% lower than serum/plasma values. (CLIA ID [id number]) Test Performed by [facility], [facility] [address] [place] [address] [facility] [place] Glucose [Mass/Vol] 95 mg/dL 70 - 100 mg/dL [facility] [place] Comment on above: Test performed by gl ucose meter. Results may be 10%-15% lower than serum/plasma values. (CLIA ID [id number]) Test Performed by [facility], [address] [place] [address] [facility] [place] Glucose [Mass/Vol] 111 mg/dL High 70 - 100 mg/dL [facility] [place] Comment on above: Test performed by gl ucose meter. Results may be 10%-15% lower than serum/plasma values. (CLIA ID [id number]) Interpretation and review of laboratory results Abnormal [facility] [place] Test Performed by [facility], [address] [place] [address] [facility] [place] Glucose [Mass/Vol] 149 mg/dL High 70 - 100 mg/dL [facility] [place] Comment on above: Test performed by gl ucose meter. Results may be 10%-15% lower than serum/plasma values. (CLIA ID [id number]) Interpretation and review of laboratory results Abnormal [facility] [place] Test Performed by [facility], [address] [place] [address] [facility] [place] Glucose [Mass/Vol] 153 mg/dL High 70 - 100 mg/dL [facility] [place] Comment on above: Test performed by gl ucose meter. Results may be 10%-15% lower than serum/plasma values. (CLIA ID [id number]) Interpretation and review of laboratory results Abnormal [facility] [place] Test Performed by [facility], [address] [place] [address] [facility] [place] Glucose [Mass/Vol] 165 mg/dL High 70 - 100 mg/dL [facility] [place] Comment on above: Test performed by gl ucose meter. Results may be 10%-15% lower than serum/plasma values. (CLIA ID [id number]) Interpretation and review of laboratory results Abnormal [facility] [place] Test Performed by [employer] [facility], [address] [place] [address] [facility] Glucose [Mass/Vol] 150 mg/dL High 70 - 100 mg/dL [facility] [place] Comment on above: Test performed by gl ucose meter. Results may be 10%-15% lower than serum/plasma values. (CLIA ID [id number]) Interpretation and review of laboratory results Abnormal [facility] [place] Test Performed by [facility], [address] [place] [address] [facility] [place] Glucose [Mass/Vol] 172 mg/dL High 70 - 100 mg/dL [facility] [place] Comment on above: Test performed by gl ucose meter. Results may be 10%-15% lower than serum/plasma values. (CLIA ID [id number]) Interpretation and review of laboratory results Abnormal [facility] [place] Test Performed by [facility], [address] [place] [address] [facility] [place] Glucose [Mass/Vol] 112 mg/dL High 70 - 100 mg/dL [facility] [place] Comment on above: Test performed by gl ucose meter. Results may be 10%-15% lower than serum/plasma values. (CLIA ID [id number]) Interpretation and review of laboratory results Abnormal [facility] [place] Test Performed by [employer] [facility], [address] [place] [address] [facility] [place] Glucose [Mass/Vol] 96 mg/dL 70 - 100 mg/dL [facility] [place] Comment on above: Test performed by gl ucose meter. Results may be 10%-15% lower than serum/plasma values. (CLIA ID [id number]) Test Performed by [employer] [facility], [address] [place] [address] [facility] [place] Glucose [Mass/Vol] 95 mg/dL 70 - 100 mg/dL [facility] [place] Comment on above: Test performed by gl ucose meter. Results may be 10%-15% lower than serum/plasma values. (CLIA ID [id number]) Test Performed by [employer] [facility], [address] [place] [address] [place] PREPARE RBC (CROSSMATCH), 2 Unitson 03-01-2019 Blood product unit ID (Dose) [#] [id number] [place] Blood product unit ID (Dose) [#] [id number] [place] Potassiumon 03-01-2019 Potassium [Moles/Vol] 5.4 mmol/L High 3.5-5.1 [facility] Comment on above: Performed By: #### B GLU #### [facility] [address] [place] [address] Interpretation and review of laboratory results Abnormal [place] Potassium [Moles/Vol] 5.4 mmol/L High 3.5 - 5.1 mmol/L [place] Test Performed by [facility], [facility] [place] [address] [place] XR CHEST PORTABLEon 03-01-20 19 Patient Name: CHRISTY FRANCIS ---Diagnostic Radiology--- Exam Date/Time 03/01/2019 07:10:13 EST Exam CR Chest Portable Ordering Physician GRANT TAYLOR Accession Number [id number] CPT4 Codes 01496 () Reason For Exam sob Report CLINICAL INFORMATION: Shortness of breath. Status post open heart surgery. CHEST X-RAY, PORTABLE, 0537 hours: An AP portable view is compared to the prior examination of previous day. There is no change in the mediastinal or left lower hemithorax chest tubes or right internal jugular Bamberg-Jose introducer sheath. There is stable slightly limited lung volumes. No pneumothorax or other acute process or interval change identified. Report Dictated on --- Final --- Dictated: 03/01/2019 7:23 am Dictating Physician: MD JIMENEZ HARLAN Signed Date and Time: 03/01/2019 7:25 am Signed by: MD JIMENEZ HARLAN Transcribed Date and Time: 03/01/2019 7:23 [place], [place] Kathie Torres Incoming Radiology Results From [facility] - 03/01/2019 7:26 AM EST Patient Name: CHRISTY FRANCIS ---Diagnostic Radiology--- Exam Date/Time 03/01/2019 07:10:13 EST Exam CR Chest Portable Ordering Physician GRANT TAYLOR Accession Number [id number] CPT4 Codes 72985 () Reason For Exam sob Report CLINICAL INFORMATION: Shortness of breath. Status post open heart surgery. CHEST X-RAY, PORTABLE, 0537 hours: An AP portable view is compared to the prior examination of previous day. There is no change in the mediastinal or left lower hemithorax chest tubes or right internal jugular Bamberg-Jose introducer sheath. There is stable slightly limited lung volumes. No pneumothorax or other acute process or interval change identified. Report Dictated on --- Final --- Dictated: 03/01/2019 7:23 am Dictating Physician: MD JIMENEZ HARLAN Signed Date and Time: 03/01/2019 7:25 am Signed by: MD JIMENEZ HARLAN Transcribed Date and Time: 03/01/2019 7:23 [place], [place] Basic Metabolic Panelon 02-17 Calcium [Mass/Vol] 9.3 mg/dL Normal 8.4-10.4 [facility] Comment on above: Performed By: #### B GLU #### [address] [place], [place] Anion gap [Moles/Vol] 14 Normal [facility] Comment on above: Performed By: #### B GLU #### [facility] [address] [place], [place] CO2 [Moles/Vol] 18 mmol/L Low 22-30 [facility] Comment on above: Performed By: #### B GLU #### [facility] [address] [place], [place] Creatinine [Mass/Vol] 1.35 mg/dL High 0.52-1.25 [facility] Comment on above: Performed By: #### B GLU #### [facility] [address] [place], [place] GFR/1.73 sq M predicted among blacks MDRD (S/P/Bld) [Vol rate/Area] 47.1 mL/min/{1.73_m2} Normal >60 [facility] Comment on above: Performed By: #### B GLU #### [facility] [address] [place], [place] GFR/1.73 sq M predicted among non-blacks MDRD (S/P/Bld) [Vol rate/Area] 38.9 mL/min/{1.73_m2} Normal >60 [facility] Comment on above: Result Comment: Sour ce- MDRD equation with creatinine calibration to IDMS(NKDEP) eGFR not recommended for drug dose adjustment Performed By: #### B GLU #### [address] [place], [place] Glucose [Mass/Vol] 127 mg/dL High 70-100 [facility] Comment on above: Performed By: #### B GLU #### [address] [address] [address] [place], [place] Urea nitrogen [Mass/Vol] 25 mg/dL High 7-20 [facility] Comment on above: Performed By: #### B GLU #### [address] [address] [address] [place], [place] Chloride [Moles/Vol] 109 mmol/L High 98-107 [facility] Comment on above: Performed By: #### B GLU #### [address] [address] [address] [place], [place] Potassium [Moles/Vol] 4.7 mmol/L Normal 3.5-5.1 [facility] Comment on above: Performed By: #### B GLU #### [address] [address] [address] [place], [place] Sodium [Moles/Vol] 141 mmol/L Normal 135-145 [facility] Comment on above: Performed By: #### B GLU #### [address] [address] [address] [place], [place] Anion gap [Moles/Vol] 14 mmol/L [facility] [place] Calcium [Mass/Vol] 9.3 mg/dL 8.4 - 10. 4 mg/dL [facility], [place] Chloride [Moles/Vol] 109 mmol/L High 98 - 10 7 mmol/L [place] CO2 [Moles/Vol] 18 mmol/L Low 22 - 30 mmol/L [place] Creatinine [Mass/Vol] 1.35 mg/dL High 0.52 - 1.25 mg/dL [place], [place] EGFR IF NonAfrican Lithuanian 38.9 mL/min >60 [place] Comment on above: Source- MDRD equatio n with creatinine calibration to IDMS(NKDEP) eGFR not recommended for drug dose adjustment GFR/1.73 sq M predicted among blacks MDRD (S/P/Bld) [Vol rate/Area] 47.1 mL/min/{1.73_m2} >60 [place], [place] Glucose [Mass/Vol] 127 mg/dL High 70 - 100 mg/dL [place], [place] Potassium [Moles/Vol] 4.7 mmol/L 3.5 - 5.1 mmol/L [place], [place] Sodium [Moles/Vol] 141 mmol/L 135 - 145 mmol/L [place], [place] Urea nitrogen [Mass/Vol] 25 mg/dL High 7 - 20 mg/dL [place] Test Performed by [address] [address] [place] Potassium [Moles/Vol] 7.0 mmol/L Critically high 3.5-5.1 [facility] Comment on above: Result Comment: repe ated Performed By: #### B GLU #### [address] [address] [place], [place] Calcium [Mass/Vol] 9.2 mg/dL Normal 8.4-10.4 [facility] Comment on above: Performed By: #### B GLU #### [address] Glucose [Mass/Vol] 115 mg/dL High 70-100 [facility] Comment on above: Performed By: #### B GLU #### [address] [address] [place] Anion gap [Moles/Vol] 9 Normal [facility] Comment on above: Performed By: #### B GLU #### [facility] [address] [place] [address] CO2 [Moles/Vol] 21 mmol/L Low 22-30 [facility] Comment on above: Performed By: #### B GLU #### [address] [place] [address] Creatinine [Mass/Vol] 1.18 mg/dL Normal 0.52-1.25 [facility] Comment on above: Performed By: #### B GLU #### [address] [place] [address] GFR/1.73 sq M predicted among blacks MDRD (S/P/Bld) [Vol rate/Area] 55.0 mL/min/{1.73_m2} Normal >60 [facility] Comment on above: Performed By: #### B GLU #### [address] [address] [place], [place] GFR/1.73 sq M predicted among non-blacks MDRD (S/P/Bld) [Vol rate/Area] 45.4 mL/min/{1.73_m2} Normal >60 [facility] Comment on above: Result Comment: Sour ce- MDRD equation with creatinine calibration to IDMS(NKDEP) eGFR not recommended for drug dose adjustment Performed By: #### B GLU #### [address] [address] [address] [place], [place] Urea nitrogen [Mass/Vol] 25 mg/dL High 7-20 [facility] Comment on above: Performed By: #### B GLU #### [address] [address] [address] [place], [place] Chloride [Moles/Vol] 110 mmol/L High 98-107 [facility] Comment on above: Performed By: #### B GLU #### [address] [address] [address] [place], [place] Sodium [Moles/Vol] 139 mmol/L Normal 135-145 [facility] Comment on above: Performed By: #### B GLU #### [address] [address] [place] [address] Anion gap [Moles/Vol] 9 mmol/L [place], [place] Calcium [Mass/Vol] 9.2 mg/dL 8.4 - 10. 4 mg/dL [place] Chloride [Moles/Vol] 110 mmol/L High 98 - 10 7 mmol/L [place] CO2 [Moles/Vol] 21 mmol/L Low 22 - 30 mmol/L [place] Creatinine [Mass/Vol] 1.18 mg/dL 0.52 - 1.25 mg/dL [place] EGFR IF NonAfrican Lithuanian 45.4 mL/min >60 [place] Comment on above: Source- MDRD equatio n with creatinine calibration to IDMS(NKDEP) eGFR not recommended for drug dose adjustment GFR/1.73 sq M predicted among blacks MDRD (S/P/Bld) [Vol rate/Area] 55.0 mL/min/{1.73_m2} >60 [place] Glucose [Mass/Vol] 115 mg/dL High 70 - 100 mg/dL [place] Interpretation and review of laboratory results Abnormal [place] Potassium [Moles/Vol] 7.0 mmol/L Critically high 3.5 - 5.1 mmol/L [place] Comment on above: repeated Sodium [Moles/Vol] 139 mmol/L 135 - 145 mmol/L [place] Urea nitrogen [Mass/Vol] 25 mg/dL High 7 - 20 mg/dL [place] Test Performed by [facility], [address] [place] [address] [place], [place] CBCon 02-28-2019 Erythrocyte distribution width (RBC) [Ratio] 13.1 % 11.5 - 14.5 % [place] Hematocrit (Bld) [Volume fraction] 34.8 % Low 35 - 47 % [place] Hemoglobin (Bld) [Mass/Vol] 11.4 g/dL Low 11.7 - 16 g/dL [place] Interpretation and review of laboratory results Abnormal [place] MCH (RBC) [Entitic mass] 30.3 pg 26 - 34 pg [place] MCHC (RBC) [Mass/Vol] 32.8 % 32 - 36 % [place] MCV (RBC) [Entitic vol] 92.3 fL 79 - 98 fL [place], [place] Platelet mean volume (Bld) [Entitic vol] 10.1 fL 7.4 - 10.4 fL [place] Platelets (Bld) [#/Vol] 160 10*3/uL 140 - 440 10*3/uL [place] RBC (Bld) [#/Vol] 3.78 10*6/uL Low 3.8 - 5.2 10*6/uL [place] WBC (Bld) [#/Vol] 18.8 10*3/uL High 3.6 - 10.7 10*3/uL [place] Test Performed by [id number] [place] [address] CR Chest Portableon 02-29-20 19 CR Chest Portable Patient Name: CHRISTY FRANCIS Diagnostic Radiology Exam Date/Time 02/28/2019 07:24:40 EST Exam CR Chest Portable Ordering Physician GRANT TAYLOR Accession Number [id number] CPT4 Codes 33775 () Reason For Exam POST OPEN HEART Report CHEST - PORTABLE: CLINICAL INDICATION: Respiratory distress for follow up TECHNIQUE: Portable AP COMPARISON: One day ago FINDINGS: Life support devices: Right jugular venous sheath is noted. The Bamberg-Jose catheter has been removed. 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1950 Requested By: Order Number: [id number] Reading MD: Bryce Hayden Measurements Intervals [place] Rate: 95 P: 61 OK: 146 QRS: 11 QRSD: 85 T: 93 QT: 321 QTc: 404 Interpretive Statements Sinus rhythm Left atrial enlargement Nonspecific T abnormalities, lateral leads Electronically Signed On 02-28-2019 12:56:39 EST by [facility]ce [facility] Incoming Cardiology Results From [facility] - 02/28/2019 12:57 PM EST [facility] Test Date: 2019-02-28 Pat Name: Christy Francis Department: [facility] Room: [facility] 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 Results may be 10%-15% lower than serum/plasma values. (CLIA ID [id number]) Performed By: #### B GLU ####[address] [address] Glucose [Mass/Vol] 196 mg/dL High 70-100 [facility] Comment on above: Result Comment: Test performed by glucose meter. Results may be 10%-15% lower than serum/plasma values. (CLIA ID [id number]) Performed By: #### B GLU #### [facility] [address] [place] [address] Glucose [Mass/Vol] 135 mg/dL High 70-100 [facility] Comment on above: Result Comment: Test performed by glucose meter. Results may be 10%-15% lower than serum/plasma values. (CLIA ID [id number]) Performed By: #### B GLU #### [facility] [address] [facility] [place] [address] Glucose [Mass/Vol] 121 mg/dL High 70-100 [facility] Comment on above: Result Comment: Test performed by glucose meter. Results may be 10%-15% lower than serum/plasma values. (CLIA ID [id number]) Performed By: #### B GLU #### [facility] [address] [place] [address] Glucose [Mass/Vol] 76 mg/dL Normal 70-100 [facility] Comment on above: Result Comment: Test performed by glucose meter. Results may be 10%-15% lower than serum/plasma values. (CLIA ID [id number]) Performed By: #### B GLU #### [facility] [address] [facility] [place] [address] Glucose [Mass/Vol] 76 mg/dL Normal 70-100 [facility] Comment on above: Result Comment: Test performed by glucose meter. Results may be 10%-15% lower than serum/plasma values. (CLIA ID [id number]) Performed By: #### B GLU #### [facility] [address] [place] [address] Glucose [Mass/Vol] 90 mg/dL Normal 70-100 [facility] Comment on above: Result Comment: Test performed by glucose meter. Results may be 10%-15% lower than serum/plasma values. (CLIA ID [id number]) Performed By: #### B GLU #### [facility] [address] [place] [address] Glucose [Mass/Vol] 97 mg/dL Normal 70-100 [facility] Comment on above: Result Comment: Test performed by glucose meter. Results may be 10%-15% lower than serum/plasma values. (CLIA ID [id number]) Performed By: #### B GLU #### [facility] [address] [place] [address] Glucose [Mass/Vol] 123 mg/dL High 70-100 [facility] Comment on above: Result Comment: Test performed by glucose meter. Results may be 10%-15% lower than serum/plasma values. (CLIA ID [id number]) Performed By: #### B GLU #### [facility] [address] [place] [address] Glucose [Mass/Vol] 133 mg/dL High 70-100 [facility] Comment on above: Result Comment: Test performed by glucose meter. Results may be 10%-15% lower than serum/plasma values. (CLIA ID [id number]) Performed By: #### B GLU #### [facility] [address] [place] [address] Glucose [Mass/Vol] 115 mg/dL High 70-100 [facility] Comment on above: Result Comment: Test performed by glucose meter. Results may be 10%-15% lower than serum/plasma values. (CLIA ID [id number]) Performed By: #### B GLU #### [facility] [address] [place] [address] Glucose [Mass/Vol] 138 mg/dL High 70-100 [place] Comment on above: Test performed by gl ucose meter. Results may be 10%-15% lower than serum/plasma values. (CLIA ID [id number]) Result Comment: Test performed by glucose meter. Results may be 10%-15% lower than serum/plasma values. (CLIA ID [id number]) Performed By: #### B GLU #### [facility] [address] [place] [address] Glucose [Mass/Vol] 135 mg/dL High 70-100 [facility] Comment on above: Result Comment: Test performed by glucose meter. Results may be 10%-15% lower than serum/plasma values. (CLIA ID [id number]) Performed By: #### B GLU #### [facility] [address] [place] [address] Glucose [Mass/Vol] 134 mg/dL High 70-100 [facility] Comment on above: Result Comment: Test performed by glucose meter. Results may be 10%-15% lower than serum/plasma values. (CLIA ID [id number]) Performed By: #### B GLU #### [facility] [address] [place] [address] Glucose [Mass/Vol] 143 mg/dL High 70-100 [facility] Comment on above: Result Comment: Test performed by glucose meter. Results may be 10%-15% lower than serum/plasma values. (CLIA ID [id number]) Performed By: #### B GLU #### [facility] [address] [place] [address] Glucose [Mass/Vol] 110 mg/dL High 70-100 [facility] Comment on above: Result Comment: Test performed by glucose meter. Results may be 10%-15% lower than serum/plasma values. (CLIA ID [id number]) Performed By: #### B GLU #### [facility] [address] [place] [address] Glucose [Mass/Vol] 155 mg/dL High 70-100 [place] Comment on above: Test performed by gl ucose meter. Results may be 10%-15% lower than serum/plasma values. (CLIA ID [id number]) Result Comment: Test performed by glucose meter. Results may be 10%-15% lower than serum/plasma values. (CLIA ID [id number]) Performed By: #### B GLU #### [facility] [address] [place] [address] Glucose [Mass/Vol] 104 mg/dL High 70-100 [facility] Comment on above: Result Comment: Test performed by glucose meter. Results may be 10%-15% lower than serum/plasma values. (CLIA ID [id number]) Performed By: #### B GLU #### [facility] [address] [place] [address] Glucose [Mass/Vol] 82 mg/dL Normal 70-100 [facility] Comment on above: Result Comment: Test performed by glucose meter. Results may be 10%-15% lower than serum/plasma values. (CLIA ID [id number]) Performed By: #### B GLU #### [facility] [address] [facility] [place] [address] Glucose [Mass/Vol] 92 mg/dL Normal 70-100 [place] Comment on above: Test performed by gl ucose meter. Results may be 10%-15% lower than serum/plasma values. (CLIA ID [id number]) Result Comment: Test performed by glucose meter. Results may be 10%-15% lower than serum/plasma values. (CLIA ID [id number]) Performed By: #### B GLU #### [facility] [address] [place] [address] Glucose [Mass/Vol] 110 mg/dL High 70-100 [facility] Comment on above: Result Comment: Test performed by glucose meter. Results may be 10%-15% lower than serum/plasma values. (CLIA ID [id number]) Performed By: #### B GLU #### [facility] [address] [place] [address] Glucose [Mass/Vol] 122 mg/dL High 70-100 [facility] Comment on above: Result Comment: Test performed by glucose meter. Results may be 10%-15% lower than serum/plasma values. (CLIA ID [id number]) Performed By: #### B GLU #### [facility] [address] [facility] [place] [address] Glucose [Mass/Vol] 152 mg/dL High 70-100 [facility] Comment on above: Result Comment: Test performed by glucose meter. Results may be 10%-15% lower than serum/plasma values. (CLIA ID [id number]) Performed By: #### B GLU #### [facility] [address] [place] [address] Glucose [Mass/Vol] 156 mg/dL High 70-100 [facility] Comment on above: Result Comment: Test performed by glucose meter. Results may be 10%-15% lower than serum/plasma values. (CLIA ID [id number]) Performed By: #### B GLU #### [address] [address] [place], [place] Hemogramon 02-28-2019 Erythrocyte distribution width (RBC) [Ratio] 13.1 % Normal 11.5-14.5 [facility] Comment on above: Performed By: #### B GLU #### [address] [address] [address] [place], [place] Hematocrit (Bld) [Volume fraction] 34.8 % Low 35.0-47.0 [facility] Comment on above: Performed By: #### B GLU #### [address] [address] [address] [place] Hemoglobin (Bld) [Mass/Vol] 11.4 g/dL Low 11.7-16.0 [facility] Comment on above: Performed By: #### B GLU #### [address] [address] [address] [place], [place] MCH (RBC) [Entitic mass] 30.3 pg Normal 26.0-34.0 [facility] Comment on above: Performed By: #### B GLU #### [address] [address] [address] [place] MCHC (RBC) [Mass/Vol] 32.8 % Normal 32.0-36.0 [facility] Comment on above: Performed By: #### B GLU #### [address] MCV (RBC) [Entitic vol] 92.3 fL Normal 79.0-98.0 [facility] Comment on above: Performed By: #### B GLU #### [address] Platelet mean volume (Bld) [Entitic vol] 10.1 fL Normal 7.4-10.4 [facility] Comment on above: Performed By: #### B GLU #### [address] [address] [address] [place], [place] Platelets (Bld) [#/Vol] 160 10*3/uL Normal 140-440 [facility] Comment on above: Performed By: #### B GLU #### [facility] [address] [place], [place] RBC (Bld) [#/Vol] 3.78 10*6/uL Low 3.80-5.20 [facility] Comment on above: Performed By: #### B GLU #### [facility] [address] [place], [place] WBC (Bld) [#/Vol] 18.8 10*3/uL High 3.6-10.7 [facility] Comment on above: Performed By: #### B GLU #### [facility] [address] [place], [place] Otheron 02-28-2019 Interpretation and review of laboratory results Abnormal [facility] [place] [place] PO[facility] Glucoseon 02-28-2019 Glucose [Mass/Vol] 136 mg/dL High 70 - 100 mg/dL [place] Comment on above: Test performed by gl ucose meter. Results may be 10%-15% lower than serum/plasma values. (CLIA ID [id number]) Interpretation and review of laboratory results Abnormal [employer] Test Performed by [facility], [address] [place] [address] [place] Glucose [Mass/Vol] 162 mg/dL High 70 - 100 mg/dL [place] Comment on above: Test performed by gl ucose meter. Results may be 10%-15% lower than serum/plasma values. (CLIA ID [id number]) Interpretation and review of laboratory results Abnormal [employer] Test Performed by [facility], [address] [place] [address] [place] Glucose [Mass/Vol] 214 mg/dL High 70 - 100 mg/dL [place] Comment on above: Test performed by gl ucose meter. Results may be 10%-15% lower than serum/plasma values. (CLIA ID [id number]) Interpretation and review of laboratory results Abnormal [facility] [place] Test Performed by [facility], [address] [place] [address] [facility] [place] Glucose [Mass/Vol] 196 mg/dL High 70 - 100 mg/dL [facility] [place] Comment on above: Test performed by gl ucose meter. Results may be 10%-15% lower than serum/plasma values. (CLIA ID [id number]) Interpretation and review of laboratory results Abnormal [facility] [place] Test Performed by [facility], [address] [place] [address] [facility] [place] Glucose [Mass/Vol] 135 mg/dL High 70 - 100 mg/dL [facility] [place] Comment on above: Test performed by gl ucose meter. Results may be 10%-15% lower than serum/plasma values. (CLIA ID [id number]) Interpretation and review of laboratory results Abnormal [facility] [place] Test Performed by [facility], [address] [place] [address] [facility] [place] Glucose [Mass/Vol] 121 mg/dL High 70 - 100 mg/dL [facility] Comment on above: Test performed by gl ucose meter. Results may be 10%-15% lower than serum/plasma values. (CLIA ID [id number]) Interpretation and review of laboratory results Abnormal [facility] [place] Test Performed by [facility], [address] [place] [address] [facility] [place] Glucose [Mass/Vol] 76 mg/dL 70 - 100 mg/dL [facility] [place] Comment on above: Test performed by gl ucose meter. Results may be 10%-15% lower than serum/plasma values. (CLIA ID [id number]) Test Performed by [facility], [address] [place] [address] [facility] [place] Glucose [Mass/Vol] 76 mg/dL 70 - 100 mg/dL [facility] [place] Comment on above: Test performed by gl ucose meter. Results may be 10%-15% lower than serum/plasma values. (CLIA ID [id number]) Test Performed by [facility], [address] [place] [address] [facility] [place] Glucose [Mass/Vol] 90 mg/dL 70 - 100 mg/dL [facility] [place] Comment on above: Test performed by gl ucose meter. Results may be 10%-15% lower than serum/plasma values. (CLIA ID [id number]) Test Performed by [facility], [address] [place] [address] [facility] [place] Glucose [Mass/Vol] 97 mg/dL 70 - 100 mg/dL [facility] [place] Comment on above: Test performed by gl ucose meter. Results may be 10%-15% lower than serum/plasma values. (CLIA ID [id number]) Test Performed by [facility], [address], [place] [address] [facility] [place] Glucose [Mass/Vol] 123 mg/dL High 70 - 100 mg/dL [facility] [place] Comment on above: Test performed by gl ucose meter. Results may be 10%-15% lower than serum/plasma values. (CLIA ID [id number]) Interpretation and review of laboratory results Abnormal [facility] [place] Test Performed by [facility], [address] [place] [address] [facility] [place] Glucose [Mass/Vol] 133 mg/dL High 70 - 100 mg/dL [facility] [place] Comment on above: Test performed by gl ucose meter. Results may be 10%-15% lower than serum/plasma values. (CLIA ID [id number]) Interpretation and review of laboratory results Abnormal [facility] [place] Test Performed by [facility], [address] [place] [address] [facility] [place] Glucose [Mass/Vol] 115 mg/dL High 70 - 100 mg/dL [facility] [place] Comment on above: Test performed by gl ucose meter. Results may be 10%-15% lower than serum/plasma values. (CLIA ID [id number]) Interpretation and review of laboratory results Abnormal [facility] [place] Test Performed by [facility], [address] [place] [address] [facility] [place] Glucose [Mass/Vol] 135 mg/dL High 70 - 100 mg/dL [facility] [place] Comment on above: Test performed by gl ucose meter. Results may be 10%-15% lower than serum/plasma values. (CLIA ID [id number]) Interpretation and review of laboratory results Abnormal [facility] [place] Test Performed by [facility], [address] [place] [address] [facility] [place] Glucose [Mass/Vol] 134 mg/dL High 70 - 100 mg/dL [facility] [place] Comment on above: Test performed by gl ucose meter. Results may be 10%-15% lower than serum/plasma values. (CLIA ID [id number]) Interpretation and review of laboratory results Abnormal [facility] [place] Test Performed by [facility], [address] [place] [address] [facility] [place] Glucose [Mass/Vol] 143 mg/dL High 70 - 100 mg/dL [facility] [place] Comment on above: Test performed by gl ucose meter. Results may be 10%-15% lower than serum/plasma values. (CLIA ID [id number]) Interpretation and review of laboratory results Abnormal [facility] [place] Test Performed by [employer] [facility], [address] [place] [address] [facility] [place] Glucose [Mass/Vol] 110 mg/dL High 70 - 100 mg/dL [facility] [place] Comment on above: Test performed by gl ucose meter. Results may be 10%-15% lower than serum/plasma values. (CLIA ID [id number]) Interpretation and review of laboratory results Abnormal [facility] [place] Test Performed by [employer] [facility], [address] [place] [address] [facility] [place] Glucose [Mass/Vol] 104 mg/dL High 70 - 100 mg/dL [facility] [place] Comment on above: Test performed by gl ucose meter. Results may be 10%-15% lower than serum/plasma values. (CLIA ID [id number]) Interpretation and review of laboratory results Abnormal [facility] Test Performed by [facility], [facility] [place] [address] [facility] Glucose [Mass/Vol] 82 mg/dL 70 - 100 mg/dL [facility] [place] Comment on above: Test performed by gl ucose meter. Results may be 10%-15% lower than serum/plasma values. (CLIA ID [id number]) Test Performed by [facility], [facility] [place] [address] [facility] Test Performed by [address] [address] [place] [address] [facility] [place] Glucose [Mass/Vol] 110 mg/dL High 70 - 100 mg/dL [facility] [place] Comment on above: Test performed by gl ucose meter. Results may be 10%-15% lower than serum/plasma values. (CLIA ID [id number]) Interpretation and review of laboratory results Abnormal [facility] [place] Test Performed by [employer] [facility], [address] [place] [address] [facility], [place] Glucose [Mass/Vol] 122 mg/dL High 70 - 100 mg/dL [facility], [place] Comment on above: Test performed by gl ucose meter. Results may be 10%-15% lower than serum/plasma values. (CLIA ID [id number]) Interpretation and review of laboratory results Abnormal [facility] [place] Test Performed by [employer] [facility], [address] [place] [address] [facility], [place] Potassiumon 02-28-2019 Potassium [Moles/Vol] 6.7 mmol/L Critically high 3.5-5.1 [facility] Comment on above: Result Comment: Repe ated Performed By: #### B GLU #### [address] [address] Interpretation and review of laboratory results Abnormal [facility] [place] Potassium [Moles/Vol] 6.7 mmol/L Critically high 3.5 - 5.1 mmol/L [place] Comment on above: Repeated Test Performed by [facility], [address] [place] [address] [facility], [place] XR CHEST PORTABLEon 02-29-20 Patient Name: CHRISTY FRANCIS ---Diagnostic Radiology--- Exam Date/Time 02/28/2019 07:24:40 EST Exam CR Chest Portable Ordering Physician GRANT TAYLOR Accession Number [id number] CPT4 Codes 29854 () Reason For Exam POST OPEN HEART Report CHEST - PORTABLE: CLINICAL INDICATION: Respiratory distress for follow up TECHNIQUE: Portable AP COMPARISON: One day ago FINDINGS: Life support devices: Right jugular venous sheath is noted. The Bamberg-Jose catheter has been removed. Endotracheal tube and [...] JEFFREY Transcribed Date and Time: 02/28/2019 6:53 [place], [place] Brian, [facility] Incoming Radiology Results From [facility] - 02/28/2019 7:25 AM EST Patient Name: CHRISTY FRANCIS ---Diagnostic Radiology--- Exam Date/Time 02/28/2019 07:24:40 EST Exam CR Chest Portable Ordering Physician GRANT TAYLOR Accession Number [id number] CPT4 Codes 93507 () Reason For Exam POST OPEN HEART Report CHEST - PORTABLE: CLINICAL INDICATION: Respiratory distress for follow up TECHNIQUE: Portable AP COMPARISON: One day ago FINDINGS: Life support devices: Right jugular venous sheath is noted. The Bamberg-Jose catheter has been removed. Endotracheal tube and [...] JEFFREY Transcribed Date and Time: 02/28/2019 6:53 [place] Arterial Blood Gaseson 02-27 CO2 [Moles/Vol] 22.3 mmol/L Low 23.0-27.0 [facility] Comment on above: Performed By: #### Papito AVILA CMP3M #### [facility] [address], [place] HCO3 (Bld) [Moles/Vol] 20.8 mmol/L Low 21.0-25.0 [facility] Comment on above: Performed By: #### Papito AVILA CMP3M #### [facility] [address], [place] Hemoglobin (Bld) [Mass/Vol] 10.4 g/dL Normal ScreenOnly [facility] Comment on above: Performed By: #### H AUSTIN CMP3M #### [facility] [address], [place] Oxygen (Bld) [Partial pressure] 270.6 mm[Hg] High 80.0-100.0 [facility] Comment on above: Performed By: #### H AUSTIN CMP3M #### [facility] [address], [place] Oxygen saturation in Blood 98.8 % Normal 95.0-100.0 [facility] Comment on above: Performed By: #### Papito AVILA CMP3M #### [facility] [address], [place] pCO2 46.0 mm[Hg] High 35.0-45.0 [facility] Comment on above: Performed By: #### H MEGHNA AVILA3M #### [facility] [address], [place] pH (Bld) 7.274 Low 7.350-7.450 [facility] Comment on above: Performed By: #### H MEGHNA AVILA3M #### [facility] [address], [place] Std Base Excess -5.8 mmol/L Low -3.0-3.0 [facility] Comment on above: Performed By: #### H MEGHNA AVILA3M #### [facility] [address], [place] FIO2 100% Normal [facility] Comment on above: Performed By: #### H MEGHNA AVILA3M #### [facility] [address], [place] Basic Metabolic Panelon 11- Calcium [Mass/Vol] 9.7 mg/dL Normal 8.4-10.4 [facility] Comment on above: Performed By: #### B GLU #### [facility] [address], [place] Glucose [Mass/Vol] 164 mg/dL High 70-100 [facility] Comment on above: Performed By: #### B GLU #### [facility] [address], [place] Anion gap [Moles/Vol] 13 Normal [facility] Comment on above: Performed By: #### B GLU #### [facility] [address], [place] CO2 [Moles/Vol] 18 mmol/L Low 22-30 [facility] Comment on above: Performed By: #### B GLU #### [facility] [address], [place] Creatinine [Mass/Vol] 1.13 mg/dL Normal 0.52-1.25 [facility] Comment on above: Performed By: #### B GLU #### [facility] [address], [place] GFR/1.73 sq M predicted among blacks MDRD (S/P/Bld) [Vol rate/Area] 57.9 mL/min/{1.73_m2} Normal >60 [facility] Comment on above: Performed By: #### B GLU #### [place] [address] [address] [place], [place] GFR/1.73 sq M predicted among non-blacks MDRD (S/P/Bld) [Vol rate/Area] 47.7 mL/min/{1.73_m2} Normal >60 [facility] Comment on above: Result Comment: Sour ce- MDRD equation with creatinine calibration to IDMS(NKDEP) eGFR not recommended for drug dose adjustment Performed By: #### B GLU #### [place] [address] [address], [place] Urea nitrogen [Mass/Vol] 24 mg/dL High 7-20 [facility] Comment on above: Performed By: #### B GLU #### [place] [address], [place] Chloride [Moles/Vol] 110 mmol/L High 98-107 [facility] Comment on above: Performed By: #### B GLU #### [place] [address] [place], [place] Potassium [Moles/Vol] 4.0 mmol/L Normal 3.5-5.1 [facility] Comment on above: Performed By: #### B GLU #### [place] [address], [place] Sodium [Moles/Vol] 141 mmol/L Normal 135-145 [facility] Comment on above: Performed By: #### B GLU #### [place] [address] [place], [place] Anion gap [Moles/Vol] 13 mmol/L [facility], [place] Calcium [Mass/Vol] 9.7 mg/dL 8.4 - 10. 4 mg/dL [facility], [place] Chloride [Moles/Vol] 110 mmol/L High 98 - 10 7 mmol/L [facility], [place] CO2 [Moles/Vol] 18 mmol/L Low 22 - 30 mmol/L [place], [place] Creatinine [Mass/Vol] 1.13 mg/dL 0.52 - 1.25 mg/dL [place] EGFR IF NonAfrican [place]ian 47.7 mL/min >60 [place] Comment on above: Source- MDRD equatio n with creatinine calibration to IDMS(NKDEP) eGFR not recommended for drug dose adjustment GFR/1.73 sq M predicted among blacks MDRD (S/P/Bld) [Vol rate/Area] 57.9 mL/min/{1.73_m2} >60 [place] Glucose [Mass/Vol] 164 mg/dL High 70 - 100 mg/dL [place] Potassium [Moles/Vol] 4.0 mmol/L 3.5 - 5.1 mmol/L [place] Sodium [Moles/Vol] 141 mmol/L 135 - 145 mmol/L [place] Urea nitrogen [Mass/Vol] 24 mg/dL High 7 - 20 mg/dL [place] Calcium [Mass/Vol] 10.7 mg/dL High 8.4-10.4 [facility] Comment on above: Performed By: #### B GLU #### [place] [address] [address] [place], [place] Glucose [Mass/Vol] 160 mg/dL High 70-100 [facility] Comment on above: Performed By: #### B GLU #### [place] [address] [address] [place], [place] Urea nitrogen [Mass/Vol] 25 mg/dL High 7-20 [facility] Comment on above: Performed By: #### B GLU #### [place] [address] [address] [place], [place] Anion gap [Moles/Vol] 12 Normal [facility] Comment on above: Performed By: #### B GLU #### [place] [address] [place], [place] CO2 [Moles/Vol] 19 mmol/L Low 22-30 [facility] Comment on above: Performed By: #### B GLU #### [place] [address], [place] Creatinine [Mass/Vol] 1.17 mg/dL Normal 0.52-1.25 [facility] Comment on above: Performed By: #### B GLU #### [place] [address] [place], [place] GFR/1.73 sq M predicted among blacks MDRD (S/P/Bld) [Vol rate/Area] 55.6 mL/min/{1.73_m2} Normal >60 [facility] Comment on above: Performed By: #### B GLU #### [place] [address] [place], [place] GFR/1.73 sq M predicted among non-blacks MDRD (S/P/Bld) [Vol rate/Area] 45.9 mL/min/{1.73_m2} Normal >60 [facility] Comment on above: Result Comment: Sour ce- MDRD equation with creatinine calibration to IDMS(NKDEP) eGFR not recommended for drug dose adjustment Performed By: #### B GLU #### [place] [address] [address] [place], [place] Chloride [Moles/Vol] 110 mmol/L High 98-107 [facility] Comment on above: Performed By: #### B GLU #### [place] [address] [place], [place] Potassium [Moles/Vol] 4.2 mmol/L Normal 3.5-5.1 [facility] Comment on above: Performed By: #### B GLU #### [place] [address] [address] [place], [place] Sodium [Moles/Vol] 140 mmol/L Normal 135-145 [facility] Comment on above: Performed By: #### B GLU #### [place] [address] [place], [place] Anion gap [Moles/Vol] 12 mmol/L [place], [place] Calcium [Mass/Vol] 10.7 mg/dL High 8.4 - 10. 4 mg/dL [place] Chloride [Moles/Vol] 110 mmol/L High 98 - 10 7 mmol/L [place] CO2 [Moles/Vol] 19 mmol/L Low 22 - 30 mmol/L [place] Creatinine [Mass/Vol] 1.17 mg/dL 0.52 - 1.25 mg/dL [place] EGFR IF NonAfrican [place]ian 45.9 mL/min >60 [place] Comment on above: Source- MDRD equatio n with creatinine calibration to IDMS(NKDEP) eGFR not recommended for drug dose adjustment GFR/1.73 sq M predicted among blacks MDRD (S/P/Bld) [Vol rate/Area] 55.6 mL/min/{1.73_m2} >60 [place] Glucose [Mass/Vol] 160 mg/dL High 70 - 100 mg/dL [place] Potassium [Moles/Vol] 4.2 mmol/L 3.5 - 5.1 mmol/L [place] Sodium [Moles/Vol] 140 mmol/L 135 - 145 mmol/L [place] Urea nitrogen [Mass/Vol] 25 mg/dL High 7 - 20 mg/dL [place] Calcium [Mass/Vol] 9.6 mg/dL Normal 8.4-10.4 [facility] Comment on above: Performed By: #### Papito AVILA CMP3M #### [facility] [address], [place] Glucose [Mass/Vol] 233 mg/dL High 70-100 [facility] Comment on above: Performed By: #### Papito AVILA CMP3M #### [facility] [address], [place] Urea nitrogen [Mass/Vol] 32 mg/dL High 7-20 [facility] Comment on above: Performed By: #### Papito AVILA CMP3M #### [facility] [address], [place] Anion gap [Moles/Vol] 12 Normal [facility] Comment on above: Performed By: #### Papito AVILA CMP3M #### [facility] [address], [place] CO2 [Moles/Vol] 24 mmol/L Normal 22-30 [facility] Comment on above: Performed By: #### Papito AVILA CMP3M #### [place] [address] [address], [place] Creatinine [Mass/Vol] 1.05 mg/dL Normal 0.52-1.25 [facility] Comment on above: Performed By: #### Papito AVILA CMP3M #### [place] [address] [address] [place], [place] GFR/1.73 sq M predicted among blacks MDRD (S/P/Bld) [Vol rate/Area] mL/min/{1.73_m2} Normal >60 [facility] Comment on above: Performed By: #### Papito AVILA CMP3M #### [place] [address], [place] GFR/1.73 sq M predicted among non-blacks MDRD (S/P/Bld) [Vol rate/Area] 52.0 mL/min/{1.73_m2} Normal >60 [facility] Comment on above: Result Comment: Sour ce- MDRD equation with creatinine calibration to IDMS(NKDEP) eGFR not recommended for drug dose adjustment Performed By: #### Papito AVILA CMP3M #### [address] [place], [place] Chloride [Moles/Vol] 103 mmol/L Normal 98-107 [facility] Comment on above: Performed By: #### Papito AVIAL CMP3M #### [place] [address] [address] [place], [place] Potassium [Moles/Vol] 4.7 mmol/L Normal 3.5-5.1 [facility] Comment on above: Performed By: #### Papito AVILA CMP3M #### [place] [address] [place], [place] Sodium [Moles/Vol] 138 mmol/L Normal 135-145 [facility] Comment on above: Performed By: #### Papito AVILA CMP3M #### [place] [address] [address] [place], [place] Basic Metabolic Panel w/ Ref oneil to MGon 02-27-2019 Anion gap [Moles/Vol] 12 mmol/L [place] Calcium [Mass/Vol] 9.6 mg/dL 8.4 - 10. 4 mg/dL [place] Chloride [Moles/Vol] 103 mmol/L 98 - 10 7 mmol/L [place] CO2 [Moles/Vol] 24 mmol/L 22 - 30 mmol/L [place] Creatinine [Mass/Vol] 1.05 mg/dL 0.52 - 1.25 mg/dL [place] EGFR IF NonAfrican [place]ian 52.0 mL/min >60 [place] Comment on above: Source- MDRD equatio n with creatinine calibration to IDMS(NKDEP) eGFR not recommended for drug dose adjustment GFR/1.73 sq M predicted among blacks MDRD (S/P/Bld) [Vol rate/Area] mL/min/{1.73_m2} >60 mL/min [place] Glucose [Mass/Vol] 233 mg/dL High 70 - 100 mg/dL [place] Interpretation and review of laboratory results Abnormal [place] Potassium [Moles/Vol] 4.7 mmol/L 3.5 - 5.1 mmol/L [place] Sodium [Moles/Vol] 138 mmol/L 135 - 145 mmol/L [place] Urea nitrogen [Mass/Vol] 32 mg/dL High 7 - 20 mg/dL [place] Test Performed by [address] [address] [place] Blood Gas, Arterialon 2018 Base Excess, Arterial -5.8 mmol/L Low -3 - 3 mmol/L [place] HCO3, Arterial 20.8 mmol/L Low 21 - 25 mmol/L [place] Hemoglobin (Bld) [Mass/Vol] 10.4 g/dL ScreenOnly [place] Oxygen saturation in Blood 98.8 % 95 - 100 % [place] pCO2, Arterial 46.0 mm[Hg] High 35 - 45 mm[Hg] [place] pH, Arterial 7.274 Low [place] pO2, Arterial 270.6 mm[Hg] High 80 - 100 mm[Hg] [place] Sodium [Moles/Vol] 100% [place] TCO2, Arterial 22.3 mmol/L Low 23 - 27 mmol/L [place] CBCon 02-27-2019 Erythrocyte distribution width (RBC) [Ratio] 13.0 % 11.5 - 14.5 % [place] Hematocrit (Bld) [Volume fraction] 34.0 % Low 35 - 47 % [place] Hemoglobin (Bld) [Mass/Vol] 11.2 g/dL Low 11.7 - 16 g/dL [place] Interpretation and review of laboratory results Abnormal [place] MCH (RBC) [Entitic mass] 30.3 pg 26 - 34 pg [place] MCHC (RBC) [Mass/Vol] 32.9 % 32 - 36 % [place] MCV (RBC) [Entitic vol] 92.1 fL 79 - 98 fL [place] Platelet mean volume (Bld) [Entitic vol] 9.9 fL 7.4 - 10.4 fL [place] Platelets (Bld) [#/Vol] 143 10*3/uL 140 - 440 10*3/uL [place] RBC (Bld) [#/Vol] 3.69 10*6/uL Low 3.8 - 5.2 10*6/uL [place] WBC (Bld) [#/Vol] 16.7 10*3/uL High 3.6 - 10.7 10*3/uL [place] Test Performed by [facility], [address] [place] [address] [place] Erythrocyte distribution width (RBC) [Ratio] 12.9 % 11.5 - 14.5 % [place] Hematocrit (Bld) [Volume fraction] 29.0 % Low 35 - 47 % [place] Hemoglobin (Bld) [Mass/Vol] 9.8 g/dL Low 11.7 - 16 g/dL [place] Interpretation and review of laboratory results Abnormal [place] MCH (RBC) [Entitic mass] 31.1 pg 26 - 34 pg [place] MCHC (RBC) [Mass/Vol] 33.8 % 32 - 36 % [place] MCV (RBC) [Entitic vol] 91.9 fL 79 - 98 fL [place] Platelet mean volume (Bld) [Entitic vol] 9.7 fL 7.4 - 10.4 fL [place] Platelets (Bld) [#/Vol] 144 10*3/uL 140 - 440 10*3/uL [place] RBC (Bld) [#/Vol] 3.15 10*6/uL Low 3.8 - 5.2 10*6/uL [place] WBC (Bld) [#/Vol] 16.4 10*3/uL High 3.6 - 10.7 10*3/uL [place] Test Performed by [facility], [address] [place] [address] [place] CR Chest Portableon 02-28-20 19 CR Chest Portable Patient Name: CHRISTY FRANCIS Diagnostic Radiology Exam Date/Time 02/27/2019 16:56:34 EST Exam CR Chest Portable Ordering Physician GRANT TAYLOR Accession Number [id number] CPT4 Codes 45515 () Reason For Exam ETT placement Report CHEST PORTABLE: Indication: Inpatient; endotracheal tube placement Views: Portable frontal Comparison: 02/23/2019 Time: 16:42 on 02/27/2019 FINDINGS: Interval intubation with the endotracheal tube at the az, recommend repositioning and retraction. New right upper lung atelectasis/collapse. An enteric tube is in place with distal tip below the hemidiaphragm but excluded from [id number]. Interval placement of a right internal jugular Bamberg-Jose catheter with tip overlying the right main [...] Transcribed Date and Time: 02/27/2019 5:56 Normal [facility] CULTURE STAPH AUREUSon 02-27 CULTURE STAPH AUREUS CULTURE STAPH AUREU S --> Status: F No Staphylococcus aureus isolated. Normal [facility] Comment on above: Order Comment: Speci men Source Comment:Nasal Performed By: #### H MEGHNA AVILA3M #### [address] [address] CULTURE, STAPH AUREUSon 02-17 CULTURE, STAPHYLOCOCCUS SCREEN No Staphylococcus aureus isolated. [place] Test Performed by [address] [address] Specimen Source Comment:Nasal [place], [place] Calcium, Ionizedon 9 Ionized Ca 5.50 mg/dL High 4.3 - 5.2 mg/dL [place] pH (Bld) 7.27 [pH] Low [place] Calcium,Ionizedon 02-27-2019 Ionized Ca,Measured 5.50 mg/dL High 4.30-5.20 [facility] Comment on above: Performed By: #### H MEGHNA AVILA3M #### [address] [address] pH, Ionized Calcium 7.27 Low 7.31-7.46 [facility] Comment on above: Performed By: #### H MEGHNA AVILA3M #### [address] [address] Echo 2D/3D DONNELL w/wo Contrast on 02-27-2019 Echo 2D/3D DONNELL w/wo Contrast Patient Name: CHRISTY FRANCIS Ultrasound Exam Date/Time 02/27/2019 13:12:30 EST Exam Echo 2D/3D DONNELL w/wo Contrast Ordering Physician CITLALY CARMONA ELLEN E Accession Number [id number] Reason For Exam Surgery Report TRANSESOPHAGEAL ECHOCARDIOGRAM Intraoperative-Pre Pump Only PATIENT: Christy Francis STUDY DATE: 02/27/2019 : 1950 AGE: 69 HT/WT: 154.9 cm (61 80 kg in) (176 lb) GENDER: F BP: 98 / 57 LOCATION: [facility] PATIENT Inpatient [facility] STATUS: *ORDERING PHYSICIAN: * Ronda Carmona *READING PHYSICIAN: * Michi Dewitt, *WAFER [employer]ODUCTION LEAD WORKER: Janice Austin MD [facility] INDICATIONS: CABG. CONCLUSIONS SUMMARY: 1. Left [...] 8:47 am Signed by: MICHI DEWITT Normal [facility] Glucose,Bedsideon 02-27-2019 Glucose [Mass/Vol] 180 mg/dL High 70-100 [facility] Comment on above: Result Comment: Test performed by glucose meter. Results may be 10%-15% lower than serum/plasma values. (CLIA ID [id number]) Performed By: #### B GLU #### [facility] [address] [place] [address] Glucose [Mass/Vol] 181 mg/dL High 70-100 [facility] Comment on above: Result Comment: Test performed by glucose meter. Results may be 10%-15% lower than serum/plasma values. (CLIA ID [id number]) Performed By: #### B GLU #### [facility] [address] [place] [address] Glucose [Mass/Vol] 179 mg/dL High 70-100 [facility] Comment on above: Result Comment: Test performed by glucose meter. Results may be 10%-15% lower than serum/plasma values. (CLIA ID [id number]) Performed By: #### B GLU #### [facility] [address] [place] [address] Glucose [Mass/Vol] 148 mg/dL High [address] [facility] Comment on above: Result Comment: Test performed by glucose meter. Results may be 10%-15% lower than serum/plasma values. (CLIA ID [id number]) Performed By: #### B GLU #### [facility] [address] [place] [address] Glucose [Mass/Vol] 139 mg/dL High 70-100 [facility] Comment on above: Result Comment: Test performed by glucose meter. Results may be 10%-15% lower than serum/plasma values. (CLIA ID [id number]) Performed By: #### B GLU #### [facility] [address] [place] [address] Glucose [Mass/Vol] 233 mg/dL High 70-100 [facility] Comment on above: Result Comment: Test performed by glucose meter. Results may be 10%-15% lower than serum/plasma values. (CLIA ID [id number]) Performed By: #### H MEGHNA AVILA3M #### [facility] [address], [place] Glucose [Mass/Vol] 299 mg/dL High 70-100 [facility] Comment on above: Result Comment: Test performed by glucose meter. Results may be 10%-15% lower than serum/plasma values. (CLIA ID [id number]) Performed By: #### H MEGHNA AVILA3M #### [place] [address] [address] [place], [place] Hemogramon 02-27-2019 Erythrocyte distribution width (RBC) [Ratio] 13.0 % Normal 11.5-14.5 [facility] Comment on above: Performed By: #### B GLU #### [place] [address] [address] [place], [place] Hematocrit (Bld) [Volume fraction] 34.0 % Low 35.0-47.0 [facility] Comment on above: Performed By: #### B GLU #### [place] [address] [address] [place], [place] Hemoglobin (Bld) [Mass/Vol] 11.2 g/dL Low 11.7-16.0 [facility] Comment on above: Performed By: #### B GLU #### [place] [address] [address] [place], [place] MCH (RBC) [Entitic mass] 30.3 pg Normal 26.0-34.0 [facility] Comment on above: Performed By: #### B GLU #### [place] [address] [address] [place], [place] MCHC (RBC) [Mass/Vol] 32.9 % Normal 32.0-36.0 [facility] Comment on above: Performed By: #### B GLU #### [place] [address] [address] [place] MCV (RBC) [Entitic vol] 92.1 fL Normal 79.0-98.0 [facility] Comment on above: Performed By: #### B GLU #### [place] [address] [address] [place] Platelet mean volume (Bld) [Entitic vol] 9.9 fL Normal 7.4-10.4 [facility] Comment on above: Performed By: #### B GLU #### [place] [address] [address] [place], [place] Platelets (Bld) [#/Vol] 143 10*3/uL Normal 140-440 [facility] Comment on above: Performed By: #### B GLU #### [place] [address] [address] [place], [place] RBC (Bld) [#/Vol] 3.69 10*6/uL Low 3.80-5.20 [facility] Comment on above: Performed By: #### B GLU #### [place] [address] [address] [place], [place] WBC (Bld) [#/Vol] 16.7 10*3/uL High 3.6-10.7 [facility] Comment on above: Performed By: #### B GLU #### [place] [address] [address] [place] Erythrocyte distribution width (RBC) [Ratio] 12.9 % Normal 11.5-14.5 [facility] Comment on above: Performed By: #### H AUSTIN CMP3M #### [place] [address] [address] [place] Hematocrit (Bld) [Volume fraction] 29.0 % Low 35.0-47.0 [facility] Comment on above: Performed By: #### H AUSTIN CMP3M #### [place] [address] [address] [place] Hemoglobin (Bld) [Mass/Vol] 9.8 g/dL Low 11.7-16.0 [facility] Comment on above: Performed By: #### H AUSTIN CMP3M #### [place] [address] [address] [place] MCH (RBC) [Entitic mass] 31.1 pg Normal 26.0-34.0 [facility] Comment on above: Performed By: #### Papito AVILA CMP3M #### [place] [address] [address] [place] MCHC (RBC) [Mass/Vol] 33.8 % Normal 32.0-36.0 [facility] Comment on above: Performed By: #### Papito AVILA CMP3M #### [place] [address] [address] [place] MCV (RBC) [Entitic vol] 91.9 fL Normal 79.0-98.0 [facility] Comment on above: Performed By: #### Papito AVILA CMP3M #### [place] [address] [address] [place] Platelet mean volume (Bld) [Entitic vol] 9.7 fL Normal 7.4-10.4 [facility] Comment on above: Performed By: #### Papito AVILA CMP3M #### [place] [address] [address] [place], [place] Platelets (Bld) [#/Vol] 144 10*3/uL Normal 140-440 [facility] Comment on above: Performed By: #### Papito AVILA CMP3M #### [place] [address] [address] [place] RBC (Bld) [#/Vol] 3.15 10*6/uL Low 3.80-5.20 [facility] Comment on above: Performed By: #### Papito AVILA CMP3M #### [place] [address] [address] [place], [place] WBC (Bld) [#/Vol] 16.4 10*3/uL High 3.6-10.7 [facility] Comment on above: Performed By: #### Papito AVILA CMP3M #### [place] [address] [address] [place], [place] Magnesiumon 02-27-2019 Magnesium [Mass/Vol] 2.4 mg/dL High 1.6-2.3 [facility] Comment on above: Performed By: #### B GLU #### [facility] [address] [place] [address] Magnesium [Mass/Vol] 2.4 mg/dL High 1.6 - 2 .3 mg/dL [facility] Magnesium [Mass/Vol] 3.2 mg/dL High 1.6-2.3 [facility] Comment on above: Performed By: #### B GLU #### [facility] [address] [place] [address] Magnesium [Mass/Vol] 3.2 mg/dL High 1.6 - 2 .3 mg/dL [facility] Otheron 02-27-2019 Interpretation and review of laboratory results Abnormal [facility] Test Performed by [facility], [facility] [address] [facility] [place] [address] [facility] [place] Interpretation and review of laboratory results Abnormal [facility] [place] Test Performed by [facility], [facility] [address] [facility] [place] [address] [facility] Interpretation and review of laboratory results Abnormal [facility] Test Performed by [facility], [facility] [address] [facility] [place] [address] [facility] [place] POCT Glucoseon 02-27-2019 Glucose [Mass/Vol] 152 mg/dL High 70 - 100 mg/dL [facility] [place] Comment on above: Test performed by gl ucose meter. Results may be 10%-15% lower than serum/plasma values. (CLIA ID [id number]) Interpretation and review of laboratory results Abnormal [facility] Test Performed by [facility], [address] [place] [address] [facility] [place] Glucose [Mass/Vol] 156 mg/dL High 70 - 100 mg/dL [facility] [place] Comment on above: Test performed by gl ucose meter. Results may be 10%-15% lower than serum/plasma values. (CLIA ID [id number]) Interpretation and review of laboratory results Abnormal [facility] Test Performed by [facility], [address] [place] [address] [facility] [place] Glucose [Mass/Vol] 180 mg/dL High 70 - 100 mg/dL [facility] [place] Comment on above: Test performed by gl ucose meter. Results may be 10%-15% lower than serum/plasma values. (CLIA ID [id number]) Interpretation and review of laboratory results Abnormal [facility] Test Performed by [facility], [address] [place] [address] [facility] Glucose [Mass/Vol] 181 mg/dL High 70 - 100 mg/dL [facility] [place] Comment on above: Test performed by gl ucose meter. Results may be 10%-15% lower than serum/plasma values. (CLIA ID [id number]) Interpretation and review of laboratory results Abnormal [facility] Test Performed by [facility], [address], [place] [address] [facility] Glucose [Mass/Vol] 179 mg/dL High 70 - 100 mg/dL [facility] [place] Comment on above: Test performed by gl ucose meter. Results may be 10%-15% lower than serum/plasma values. (CLIA ID [id number]) Interpretation and review of laboratory results Abnormal [facility] Test Performed by [facility], [address] [place] [address] [facility] [place] Glucose [Mass/Vol] 148 mg/dL High 70 - 100 mg/dL [facility] [place] Comment on above: Test performed by gl ucose meter. Results may be 10%-15% lower than serum/plasma values. (CLIA ID [id number]) Interpretation and review of laboratory results Abnormal [facility] Test Performed by [employer] [facility], [address] [place] [address] [facility] Glucose [Mass/Vol] 139 mg/dL High 70 - 100 mg/dL [facility] [place] Comment on above: Test performed by gl ucose meter. Results may be 10%-15% lower than serum/plasma values. (CLIA ID [id number]) Interpretation and review of laboratory results Abnormal [facility] Test Performed by [facility], [address] [place] [id number] [place] [address] Glucose [Mass/Vol] 233 mg/dL High 70 - 100 mg/dL [place], [place] Comment on above: Test performed by gl ucose meter. Results may be 10%-15% lower than serum/plasma values. (CLIA ID [id number]) Interpretation and review of laboratory results Abnormal [place] Test Performed by [facility], [facility] [place], [place] [id number] [place] [address] Glucose [Mass/Vol] 299 mg/dL High 70 - 100 mg/dL [place], [place] Comment on above: Test performed by gl ucose meter. Results may be 10%-15% lower than serum/plasma values. (CLIA ID [id number]) Interpretation and review of laboratory results Abnormal [place] Test Performed by [facility], [address] [place] [address] Phosphoruson 02-27-2019 Phosphate [Mass/Vol] 3.3 mg/dL Normal 2.5-4.5 [facility] Comment on above: Performed By: #### B GLU #### [address] Phosphate [Mass/Vol] 3.3 mg/dL 2.5 - 4 .5 mg/dL [place], [place] Protime AND APTTon 9 INR Coag (PPP) [Relative time] 1.3 High 0.9-1.1 [facility] Comment on above: Result Comment: Gael [...] Performed By: #### H AUSTIN, CMP3M #### [address] [address] [place], [place] PT Coag (PPP) [Time] 13.5 s High 9.0-12.0 [facility] Comment on above: Result Comment: . Performed By: #### H MEGHNA AVILA3M #### [facility] [address], [place] aPTT Coag (Bld) [Time] 21.2 s Normal 20.0-30.5 [facility] Comment on above: Result Comment: NOTE : The therapeutic time for Heparin anticoagulation, based on Xa activity inhibition, is an APTT of 46-80 seconds. Performed By: #### H MEGHNA AVILA3M #### [facility] [address], [place] Protime/INR & PTTon 02-28-20 aPTT Coag (Bld) [Time] 21.2 s 20 - 30.5 s [place], [place] Comment on above: NOTE: The therapeuti c time for Heparin anticoagulation, based on Xa activity inhibition, is an APTT of 46-80 seconds. INR Coag (PPP) [Relative time] 1.3 {INR} [place] Comment on above: Recommended Anticoag ulant [...] Interpretation and review of laboratory results Abnormal [place], [place] PT Coag (PPP) [Time] 13.5 s High 9 - 12 s [place], [place] Comment on above: . Test Performed by [facility], [facility] [place], [place], [place] XR CHEST PORTABLEon 02-28-20 Patient Name: CHRISTY FRANCIS ---Diagnostic Radiology--- Exam Date/Time 02/27/2019 16:56:34 EST Exam CR Chest Portable Ordering Physician GRANT TAYLOR Accession Number [id number] CPT4 Codes 61536 () Reason For Exam ETT placement Report CHEST PORTABLE: Indication: Inpatient; endotracheal tube placement Views: Portable frontal Comparison: 02/23/2019 Time: 16:42 on 02/27/2019 FINDINGS: Interval intubation with the endotracheal tube at the az, recommend repositioning and retraction. New right upper lung atelectasis/collapse. An enteric tube is in place with distal tip below the hemidiaphragm but excluded from [id number]. Interval placement of a right internal jugular Bamberg-Jose catheter with tip overlying the right main [...] R Transcribed Date and Time: 02/27/2019 5:56 [place], [place] [facility] Incoming Radiology Results From [facility] - 02/27/2019 6:03 PM EST Patient Name: CHRISTY FRANCIS ---Diagnostic Radiology--- Exam Date/Time 02/27/2019 16:56:34 EST Exam CR Chest Portable Ordering Physician GRANT TAYLOR Accession Number [id number] CPT4 Codes 66997 () Reason For Exam ETT placement Report CHEST PORTABLE: Indication: Inpatient; endotracheal tube placement Views: Portable frontal Comparison: 02/23/2019 Time: 16:42 on 02/27/2019 FINDINGS: Interval intubation with the endotracheal tube at the az, recommend repositioning and retraction. New right upper lung atelectasis/collapse. An enteric tube is in place with distal tip below the hemidiaphragm but excluded from [id number]. Interval placement of a right internal jugular Bamberg-Jose catheter with tip overlying the right main [...] R Transcribed Date and Time: 02/27/2019 5:56 [facility], [place] Basic Metabolic Panelon 11-1 Calcium [Mass/Vol] 9.2 mg/dL Normal 8.4-10.4 [facility] Comment on above: Performed By: #### H MEGHNA AVILA3M #### [facility] [address], [place] Glucose [Mass/Vol] 317 mg/dL High 70-100 [facility] Comment on above: Performed By: #### H MEGHNA AVILA3M #### [facility] [address], [place] Anion gap [Moles/Vol] 10 Normal [facility] Comment on above: Performed By: #### H MEGHNA AVILA3M #### [facility] [address], [place] CO2 [Moles/Vol] 21 mmol/L Low 22-30 [facility] Comment on above: Performed By: #### H MEGHNA AVILA3M #### [facility] [address], [place] Creatinine [Mass/Vol] 1.14 mg/dL Normal 0.52-1.25 [facility] Comment on above: Performed By: #### Ppaito AVILA CMP3M #### [address] [address] [address] [place], [place] GFR/1.73 sq M predicted among blacks MDRD (S/P/Bld) [Vol rate/Area] 57.3 mL/min/{1.73_m2} Normal >60 [facility] Comment on above: Performed By: #### Papito AVILA CMP3M #### [address] [address] [address] [place], [place] GFR/1.73 sq M predicted among non-blacks MDRD (S/P/Bld) [Vol rate/Area] 47.2 mL/min/{1.73_m2} Normal >60 [facility] Comment on above: Result Comment: Sour ce- MDRD equation with creatinine calibration to IDMS(NKDEP) eGFR not recommended for drug dose adjustment Performed By: #### Papito AVILA CMP3M #### [address] [address] [address] [place], [place] Urea nitrogen [Mass/Vol] 30 mg/dL High 7-20 [facility] Comment on above: Performed By: #### Papito AVILA CMP3M #### [address] [address] [place], [place] Chloride [Moles/Vol] 105 mmol/L Normal 98-107 [facility] Comment on above: Performed By: #### Papito AVILA CMP3M #### [address] [place] [address] [address] [place], [place] Potassium [Moles/Vol] 5.1 mmol/L Normal 3.5-5.1 [facility] Comment on above: Performed By: #### Papito AVILA CMP3M #### [address] Sodium [Moles/Vol] 136 mmol/L Normal 135-145 [facility] Comment on above: Performed By: #### Papito AVILA CMP3M #### [address] [place] [address] [address] [place], [place] Basic Metabolic Panel w/ Ref oneil to MGon 11-10-2019 Anion gap [Moles/Vol] 10 mmol/L [place], [place] Calcium [Mass/Vol] 9.2 mg/dL 8.4 - 10. 4 mg/dL [place], [place] Chloride [Moles/Vol] 105 mmol/L 98 - 10 7 mmol/L [place] CO2 [Moles/Vol] 21 mmol/L Low 22 - 30 mmol/L [place] Creatinine [Mass/Vol] 1.14 mg/dL 0.52 - 1.25 mg/dL [place] EGFR IF NonAfrican Lithuanian 47.2 mL/min >60 [place] Comment on above: Source- MDRD equatio n with creatinine calibration to IDMS(NKDEP) eGFR not recommended for drug dose adjustment GFR/1.73 sq M predicted among blacks MDRD (S/P/Bld) [Vol rate/Area] 57.3 mL/min/{1.73_m2} >60 [place] Glucose [Mass/Vol] 317 mg/dL High 70 - 100 mg/dL [place] Interpretation and review of laboratory results Abnormal [place] Potassium [Moles/Vol] 5.1 mmol/L 3.5 - 5.1 mmol/L [place] Sodium [Moles/Vol] 136 mmol/L 135 - 145 mmol/L [place] Urea nitrogen [Mass/Vol] 30 mg/dL High 7 - 20 mg/dL [place] Test Performed by [address] [address] [place], [place] CBCon 02-26-2019 Erythrocyte distribution width (RBC) [Ratio] 13.1 % 11.5 - 14.5 % [place] Hematocrit (Bld) [Volume fraction] 44.0 % 35 - 47 % [place] Hemoglobin (Bld) [Mass/Vol] 14.9 g/dL 11.7 - 16 g/dL [place] MCH (RBC) [Entitic mass] 30.6 pg 26 - 34 pg [place] MCHC (RBC) [Mass/Vol] 33.9 % 32 - 36 % [place] MCV (RBC) [Entitic vol] 90.3 fL 79 - 98 fL [place], [place] Platelet mean volume (Bld) [Entitic vol] 9.9 fL 7.4 - 10.4 fL [place] Platelets (Bld) [#/Vol] 205 10*3/uL 140 - 440 10*3/uL [place] RBC (Bld) [#/Vol] 4.88 10*6/uL 3.8 - 5.2 10*6/uL [place] WBC (Bld) [#/Vol] 8.3 10*3/uL 3.6 - 10.7 10*3/uL [place] Test Performed by [facility], [address] [place] [id number] [place] [address] Complete Urinalysison 2018 Appearance (U) Clear Normal Clear [facility] Comment on above: Performed By: #### Papito AVILA CMP3M #### [address] Bacteria LM.HPF (Urine sed) [#/Area] Negative Normal Negative [facility] Comment on above: Performed By: #### Papito AVILA CMP3M #### [address] Bilirubin,Urine Negative Normal Negative [facility] Comment on above: Performed By: #### Papito AVILA CMP3M #### [address] Cast, Hyaline Negative Normal Negative [facility] Comment on above: Performed By: #### Papito AVILA CMP3M #### [address] Color (U) Light-Yellow Normal Lt. Yellow [facility] Comment on above: Performed By: #### Papito AVILA CMP3M #### [address] Glucose Ql (U) 300 mg/dL Normal Normal (<70) [facility] Comment on above: Performed By: #### H AUSTIN CMP3M #### [facility] [address], [place] Ketone,Urine Negative Normal Negative [facility] Comment on above: Performed By: #### H AUSTIN CMP3M #### [facility] [address], [place] Leukocytes,Urine 25 Michael/uL Normal Negative [facility] Comment on above: Performed By: #### H AUSTIN CMP3M #### [address] [address] [address] [place], [place] Mucous Threads Few Normal Negative [facility] Comment on above: Performed By: #### H AUSTIN CMP3M #### [address] [address] [address] [place], [place] Nitrites,Urine Negative Normal Negative [facility] Comment on above: Performed By: #### Papito AVILA CMP3M #### [address] [address] [address] [place], [place] Occult Blood,Urine 0.03 mg/dL Normal Negative [facility] Comment on above: Performed By: #### H AUSTIN CMP3M #### [address] [address] [address] [place], [place] pH (U) 5.0 Normal 5.0-8.0 [facility] Comment on above: Performed By: #### H AUSTIN CMP3M #### [address] [address] [address] [place], [place] Protein (U) [Mass/Vol] Negative Normal Negative [facility] Comment on above: Performed By: #### H AUSTIN CMP3M #### [address] [address] [address] [place], [place] RBC LM.HPF (Urine sed) [#/Area] 0 - 2 Normal 0-2 [facility] Comment on above: Performed By: #### H AUSTIN CMP3M #### [address] [place] [address] [address] [place], [place] Specific [place],Urine 1.015 Normal 1.005-1.030 [facility] Comment on above: Performed By: #### H EMOG, CMP3M #### [facility] [address] [place] [address] Squamous Epithelial 0 - 2 Normal 3-5 [facility] Comment on above: Performed By: #### H EMOG, CMP3M #### [facility] [address] [place] [address] Urobilinogen,Urine Normal Normal Normal (0-1) [facility] Comment on above: Performed By: #### H EMOG, CMP3M #### [facility] [address] [place] [address] WBC LM.HPF (Urine sed) [#/Area] 0 - 2 Normal 0-5 [facility] Comment on above: Performed By: #### H EMOG, CMP3M #### [facility] [address] 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1950 Requested By: Order Number: [id number] Reading MD: Keith Ngo Measurements Intervals [place] Rate: 78 P: 52 OK: 150 QRS: -10 QRSD: 86 T: 122 QT: 386 QTc: 440 Interpretive Statements Sinus rhythm LAE, consider biatrial enlargement LVH with secondary repolarization abnormality Electronically Signed On 02-26-2019 9:22:41 EST by Keith Ngo [facility], [facility] Test Date: 2019-02-25 Pat Name: Christy Francis Department: 1A5 Room: [facility] 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 Results may be 10%-15% lower than serum/plasma values. (CLIA ID [id number]) Performed By: #### H EMOG CMP3M #### [employer] [address] [place] [address] Glucose [Mass/Vol] 270 mg/dL High 70-100 [facility] Comment on above: Result Comment: Test performed by glucose meter. Results may be 10%-15% lower than serum/plasma values. (CLIA ID [id number]) Performed By: #### H EMOG CMP3M #### [employer] [address] [place] [address] Glucose [Mass/Vol] 245 mg/dL High 70-100 [facility] Comment on above: Result Comment: Test performed by glucose meter. Results may be 10%-15% lower than serum/plasma values. (CLIA ID [id number]) Performed By: #### H EMOG CMP3M #### [employer] [address] [place] [address] Glucose [Mass/Vol] 316 mg/dL High 70-100 [facility] Comment on above: Result Comment: Test performed by glucose meter. Results may be 10%-15% lower than serum/plasma values. (CLIA ID [id number]) Performed By: #### H EMOG CMP3M #### [employer] [address] [place] [address] Hemogramon 02-26-2019 Erythrocyte distribution width (RBC) [Ratio] 13.1 % Normal 11.5-14.5 [facility] Comment on above: Performed By: #### B GLU #### [employer] [facility] [address] [place] [address] Hematocrit (Bld) [Volume fraction] 44.0 % Normal 35.0-47.0 [facility] Comment on above: Performed By: #### B GLU #### [facility] [address], [place] Hemoglobin (Bld) [Mass/Vol] 14.9 g/dL Normal 11.7-16.0 [facility] Comment on above: Performed By: #### B GLU #### [facility] [address], [place] MCH (RBC) [Entitic mass] 30.6 pg Normal 26.0-34.0 [facility] Comment on above: Performed By: #### B GLU #### [facility] [address], [place] MCHC (RBC) [Mass/Vol] 33.9 % Normal 32.0-36.0 [facility] Comment on above: Performed By: #### B GLU #### [address] [address] [address] [place], [place] MCV (RBC) [Entitic vol] 90.3 fL Normal 79.0-98.0 [facility] Comment on above: Performed By: #### B GLU #### [facility] [address], [place] Platelet mean volume (Bld) [Entitic vol] 9.9 fL Normal 7.4-10.4 [facility] Comment on above: Performed By: #### B GLU #### [facility] [address], [place] Platelets (Bld) [#/Vol] 205 10*3/uL Normal 140-440 [facility] Comment on above: Performed By: #### B GLU #### [address] [place] [address] [address] [place], [place] RBC (Bld) [#/Vol] 4.88 10*6/uL Normal 3.80-5.20 [facility] Comment on above: Performed By: #### B GLU #### [address] [place] [address] [address] [place], [place] WBC (Bld) [#/Vol] 8.3 10*3/uL Normal 3.6-10.7 [facility] Comment on above: Performed By: #### B GLU #### [facility] [address] [place] [address] POCT Glucoseon 02-26-2019 Glucose [Mass/Vol] 257 mg/dL High 70 - 100 mg/dL [facility] [place] Comment on above: Test performed by gl ucose meter. Results may be 10%-15% lower than serum/plasma values. (CLIA ID [id number]) Interpretation and review of laboratory results Abnormal [facility] Test Performed by [facility], [address] [place] [address] [facility] [place] Glucose [Mass/Vol] 270 mg/dL High 70 - 100 mg/dL [facility] Comment on above: Test performed by gl ucose meter. Results may be 10%-15% lower than serum/plasma values. (CLIA ID [id number]) Interpretation and review of laboratory results Abnormal [facility] [place] Test Performed by [employer] [facility], [address] [place] [address] [facility] Glucose [Mass/Vol] 245 mg/dL High 70 - 100 mg/dL [facility] Comment on above: Test performed by gl ucose meter. Results may be 10%-15% lower than serum/plasma values. (CLIA ID [id number]) Interpretation and review of laboratory results Abnormal [facility] [place] Test Performed by [employer] [facility], [address] [place] [address] [facility] [place] Glucose [Mass/Vol] 316 mg/dL High 70 - 100 mg/dL [facility] Comment on above: Test performed by gl ucose meter. Results may be 10%-15% lower than serum/plasma values. (CLIA ID [id number]) Interpretation and review of laboratory results Abnormal [facility] Test Performed by [employer] [facility], [address] [place] [address] [facility] Prothrombin Timeon 9 INR Coag (PPP) [Relative time] 1.0 Normal 0.9-1.1 [facility] Comment on above: Result Comment: Gael [...] Performed By: #### Papito AVILA CMP3M #### [facility] [address] [place] [address] PT Coag (PPP) [Time] 10.9 s Normal 9.0-12.0 [facility] Comment on above: Result Comment: . Performed By: #### Papito AVILA CMP3M #### [address] [address] [place] [address] Protime-INRon 02-26-2019 INR Coag (PPP) [Relative time] 1.0 {INR} [place] Comment on above: Recommended Anticoag ulant [...] [Time] 10.9 s 9 - 12 s [place], [place] Comment on above: . Test Performed by [facility], [address] [place] [address] [place], [place] TS GELon 02-26-2019 TS GEL ABO Group: A Rh, Gel: POS Antibody Screen Gel: NEG Normal [facility] Comment on above: Performed By: #### H MEGHNA AVILA3M #### [facility] [address] [place] [address] TYPE AND SCREENon 02-26-2019 Sodium [Moles/Vol] Positive [place] Comment on above: Test Performed by [facility], [address] [place] [address] Sodium [Moles/Vol] A [place] Sodium [Moles/Vol] Negative [place] Comment on above: Test Performed by [facility], [address] [place] [address] Test Performed by [facility], [address] [place] [address] [place] Urinalysison 02-26-2019 Appearance (U) Clear Clear NA [place] Bacteria, UA Negative Negative /[HPF] [place] Bilirubin Urine Negative Negative mg/dL [place] Color (U) Light-Yellow Lt. Yellow NA [place] Glucose, Ur 300 mg/dL Normal (<70) [place] Hyaline Casts, UA Negative Negative /[LPF] [place] Ketones Ql (U) Negative Negative mg/dL [place] LEUKOCYTES, UA 25 Negative Michael/uL [place] Mucous Threads Few Negative /[LPF] [place] Nitrite, Urine Negative Negative NA [place] Occult Blood,Urine 0.03 mg/dL Negative [place] pH (U) 5.0 [pH] [place] Protein (U) [Mass/Vol] Negative Negat johnny mg/dL [place] RBC (U) [#/Vol] 0-2 0 - 2 /[HPF] [place] Specific [place], Urine 1.015 [place] Squam Epithel, UA 0-2 3 - 5 /[HPF] [place] Urobilinogen, Urine Normal Normal ( 0-1) mg/dL [place] WBC, UA 0-2 0 - 5 /[HPF] [place] Test Performed by [facility], [address] [place] [address] [place] VL ARTERIAL PVR LOWER WO EXE RCISEon 02-26-2019 [facility] [place] [facility] Multilevel Lower Extremity Arterial Evaluation Report Ordering Physician: Timmy Basilio MD Administrative Clerk: Yamilet Cortes RVT Interpreting Physician: Charlie Solano MD Location: [facility] Indications: PVD. Conclusions 1. Left resting [...] supine position. Images were obtained using a [employer] 2100 vascular ultrasound machine. Arterial pressure [...] signed by Charlie Solano MD 02/26/2019 09:13 [facility], [facility] Incoming Cardiology Results From Merge/coCommentany - 02/26/2019 9:13 AM EST [facility] Multilevel Lower Extremity Arterial Evaluation Report Ordering Physician: Timmy Basilio MD Administrative Clerk: Yamilet Cortes RVT Interpreting Physician: Charlie Solano MD Location: [facility] Indications: PVD. Conclusions 1. Left resting [...] supine position. Images were obtained using a [employer] [facility] 2100 vascular ultrasound machine. Arterial pressure [...] signed by Charlie Solano MD 02/26/2019 09:13 [facility] [place] VL DUP CAROTID BILATERALon 1 04-28-2018 [facility] Incoming Cardiology Results From Vera/Brooke - 02/26/2019 9:08 AM EST [facility] Carotid Duplex Report Ordering Physician: Minoo Encinas Administrative Clerk: Yamilet Cortes RVT Interpreting Physician: Charlie Solano MD Location: [facility] Indications: Carotid stenosis. Conclusions 1. Mild [...] signed by Charlie Solano MD 02/26/2019 09:08 [facility] [facility] [place] [facility] Carotid Duplex Report Ordering Physician: Minoo Encinas Administrative Clerk: Yamilet Cortes RVT Interpreting Physician: Charlie Solano MD Location: [facility] Indications: Carotid stenosis. Conclusions 1. Mild [...] -------+------+ Prepared and electronically signed by Charlie Soalno MD 02/26/2019 09:08 [facility] VL Pre Op Vein Mappingon [facility] [place] [facility] Bilateral LE Vein Mapping For Bypass Report Ordering Physician: Minoo Encinas Administrative Clerk: Yamilet Cortes RVT Interpreting Physician: Charlie Solano MD Location: [facility] Indications: Pre-op bypass. Conclusions 1. The right great saphenous vein and left great saphenous veinappears patent. 2. Vein sizes as noted below. Study data: Bilateral lower extremity vein mapping. [employer] 2D imaging. Location: Vascular laboratory. Procedure: A vascular evaluation was performed with the patient in the supine position. Images were obtained using a [employer] E9 vascular ultrasound machine. Vein mapping: + [...] signed by Charlie Solano MD 02/26/2019 09:10 [facility], [facility] Incoming Cardiology Results From Merge/Epiphany - 02/26/2019 9:10 AM EST [facility] Bilateral LE Vein Mapping For Bypass Report Ordering Physician: Minoo Encinas Administrative Clerk: Yamilet Cortes RVT Interpreting Physician: Charlie Solano MD Location: [facility] Indications: Pre-op bypass. Conclusions 1. The right great saphenous vein and left great saphenous veinappears patent. 2. Vein sizes as noted below. Study data: Bilateral lower extremity vein mapping. [employer] 2D imaging. Location: Vascular laboratory. Procedure: A vascular evaluation was performed with the patient in the supine position. Images were obtained using a [employer] E9 vascular ultrasound machine. Vein mapping: + [...] signed by Charlie Solano MD 02/26/2019 09:10 [facility] [place] Complete Urinalysison 2018 Appearance (U) Clear Normal Clear [facility] Comment on above: Performed By: #### B GLU #### [facility] [address], [place] Bacteria LM.HPF (Urine sed) [#/Area] Few Normal Negative [facility] Comment on above: Performed By: #### B GLU #### [address] [address], [place] Bilirubin,Urine Negative Normal Negative [facility] Comment on above: Performed By: #### B GLU #### [address] [address] [place], [place] Color (U) Colorless Normal Lt. Yellow [facility] Comment on above: Performed By: #### B GLU #### [address] [address] [place], [place] Glucose Ql (U) 300 mg/dL Normal Normal (<70) [facility] Comment on above: Performed By: #### B GLU #### [facility] [address], [place] Ketone,Urine Negative Normal Negative [facility] Comment on above: Performed By: #### B GLU #### [facility] [address], [place] Leukocytes,Urine 75 Michael/uL Normal Negative [facility] Comment on above: Performed By: #### B GLU #### [address] [address] [address] [place], [place] Nitrites,Urine Negative Normal Negative [facility] Comment on above: Performed By: #### B GLU #### [address] [address] [place], [place] Occult Blood,Urine Negative Normal Negative [facility] Comment on above: Performed By: #### B GLU #### [facility] [address], [place] pH (U) 5.0 Normal 5.0-8.0 [facility] Comment on above: Performed By: #### B GLU #### [facility] [address], [place] Protein (U) [Mass/Vol] Negative Normal Negative [facility] Comment on above: Performed By: #### B GLU #### [facility] [address], [place] Specific [place],Urine 1.009 Normal 1.005-1.030 [facility] Comment on above: Performed By: #### B GLU #### [facility] [address], [place] Squamous Epithelial 0 - 2 Normal 3-5 [facility] Comment on above: Performed By: #### B GLU #### [facility] [address], [place] Urobilinogen,Urine Normal Normal Normal (0-1) [facility] Comment on above: Performed By: #### B GLU #### [facility] [address], [place] WBC LM.HPF (Urine sed) [#/Area] 6 - 10 Normal 0-5 [facility] Comment on above: Performed By: #### B GLU #### [facility] [address], [place] Glucose,Bedsideon 02-25-2019 Glucose [Mass/Vol] 280 mg/dL High 70-100 [facility] Comment on above: Result Comment: Test performed by glucose meter. Results may be 10%-15% lower than serum/plasma values. (CLIA ID [id number]) Performed By: #### B GLU #### [facility] [address], [place] Glucose [Mass/Vol] 266 mg/dL High 70-100 [facility] Comment on above: Result Comment: Test performed by glucose meter. Results may be 10%-15% lower than serum/plasma values. (CLIA ID [id number]) Performed By: #### B GLU #### [facility] [address] [place] [address] Glucose [Mass/Vol] 219 mg/dL High 70-100 [facility] Comment on above: Result Comment: Test performed by glucose meter. Results may be 10%-15% lower than serum/plasma values. (CLIA ID [id number]) Performed By: #### B GLU #### [facility] [address] [place] [address] Glucose [Mass/Vol] 338 mg/dL High 70-100 [facility] Comment on above: Result Comment: Test performed by glucose meter. Results may be 10%-15% lower than serum/plasma values. (CLIA ID [id number]) Performed By: #### B GLU #### [address] [place] [address] Glucose [Mass/Vol] 272 mg/dL High 70-100 [facility] Comment on above: Result Comment: Test performed by glucose meter. Results may be 10%-15% lower than serum/plasma values. (CLIA ID [id number]) Performed By: #### B GLU #### [facility] [address] [place] [address] Hemoglobin A1Con 02-25-2019 HbA1c (Bld) [Mass fraction] 249 mg/dL Normal [facility] Comment on above: Performed By: #### B GLU #### [facility] [address] [place] [address] HbA1c (Bld) [Mass fraction] 10.3 % High 4.0-5.7 [facility] Comment on above: Result Comment: --Hg bA1C levels may not be accurate in patients who have renal disease, received recent blood transfusions, are anemic, or who have dyshemoglobinemia. Performed By: #### B GLU #### [facility] [address] [place] [address] Hemoglobin A1con 02-25-2019 eAG 249 mg/dL [facility], [place] HbA1c (Bld) [Mass fraction] 10.3 % High 4 - 5.7 % [facility] [place] Comment on above: --HgbA1C levels may not be accurate in patients who have renal disease, received recent blood transfusions, are anemic, or who have dyshemoglobinemia. Interpretation and review of laboratory results Abnormal [facility] [place] Test Performed by [facility], [address] [place] [address] [facility] [place] POCT Glucoseon 02-25-2019 Glucose [Mass/Vol] 280 mg/dL High 70 - 100 mg/dL [facility] [place] Comment on above: Test performed by gl ucose meter. Results may be 10%-15% lower than serum/plasma values. (CLIA ID [id number]) Interpretation and review of laboratory results Abnormal [facility] [place] Test Performed by [facility], [address] [place] [address] [facility] [place] Glucose [Mass/Vol] 266 mg/dL High 70 - 100 mg/dL [facility] [place] Comment on above: Test performed by gl ucose meter. Results may be 10%-15% lower than serum/plasma values. (CLIA ID [id number]) Interpretation and review of laboratory results Abnormal [facility] [place] Test Performed by [facility], [address] [place] [address] [facility] [place] Glucose [Mass/Vol] 219 mg/dL High 70 - 100 mg/dL [facility] [place] Comment on above: Test performed by gl ucose meter. Results may be 10%-15% lower than serum/plasma values. (CLIA ID [id number]) Interpretation and review of laboratory results Abnormal [facility] [place] Test Performed by [facility], [address] [place] [address] [facility] [place] Glucose [Mass/Vol] 338 mg/dL High 70 - 100 mg/dL [facility] [place] Comment on above: Test performed by gl ucose meter. Results may be 10%-15% lower than serum/plasma values. (CLIA ID [id number]) Interpretation and review of laboratory results Abnormal [facility] [place] Test Performed by [facility], [address] [place] [address] [place], [place] Urinalysison 02-25-2019 Appearance (U) Clear Clear NA [place] Bacteria, UA Few Negative /[HPF] [place] Bilirubin Urine Negative Negative mg/dL [place] Color (U) Colorless Lt. Yellow NA [place] Glucose, Ur 300 mg/dL Normal (<70) [place] Ketones Ql (U) Negative Negative mg/dL [facility], [place] LEUKOCYTES, UA 75 Negative Michael/uL [place] Nitrite, Urine Negative Negative NA [place] Occult Blood,Urine Negative Negative mg/dL [place] pH (U) 5.0 [pH] [place] Protein (U) [Mass/Vol] Negative Negat johnny mg/dL [place] Specific [place], Urine 1.009 [place] Squam Epithel, UA 0-2 3 - 5 /[HPF] [place] Urobilinogen, Urine Normal Normal ( 0-1) mg/dL [place] WBC, UA 6-10 0 - 5 /[HPF] [place] Test Performed by [facility], [address] [place] [address] [place] VL Carotid Duplex Ultrasound Completeon 02-25-2019 VL Carotid Duplex Ultrasound Complete Patient Name: CHRISTY FRANCIS Ultrasound Exam Date/Time 02/25/2019 13:56:07 EST Exam VL Carotid Duplex Ultrasound Complete Ordering Physician RICHY ENCINAS, MINOO Rivera Accession Number [id number] CPT4 Codes 80746 () Reason For Exam preop CABG Report [facility] Carotid Duplex Report Ordering Physician: Minoo Encinas Administrative Clerk: Yamilet Cortes RVT Interpreting Physician: Charlie Solano MD Location: [facility] Indications: Carotid stenosis. Conclusions 1. Mild [...] 02/26/2019 9:08 am Signed by: CHARLIE SOLANO [facility] VL PVR Arterial Doppler Lwr w/o Exerciseon 02-25-2019 VL PVR Arterial Doppler Lwr w/o Exercise Patient Name: CHRISTY FRANCIS Ultrasound Exam Date/Time 02/25/2019 13:56:47 EST Exam VL PVR Arterial Doppler Lwr w/o Exercise Ordering Physician MD CIRILO, TIMMY Accession Number [id number] CPT4 Codes 30652 () Reason For Exam PVD preop CABG Report [facility] Multilevel Lower Extremity Arterial Evaluation Report Ordering Physician: Timmy Basilio MD Administrative Clerk: Yamilet Cortes RVT Interpreting Physician: Charlie Solano MD Location: [facility] Indications: PVD. Conclusions 1. Left resting [...] supine position. Images were obtained using a [employer] 2100 vascular ultrasound machine. Arterial pressure indices: [...] 02/26/2019 9:13 am Signed by: CHARLIE SOLANO [facility] VL Vein Map for Preop Bypass [place] 02-25-2019 VL Vein Map for Preop Bypass Lower Ext Patient Name: CHRISTY FRANCIS Ultrasound Exam Date/Time 02/25/2019 13:56:27 EST Exam VL Vein Map for Preop Bypass Lower Ext Ordering Physician RICHY ENCINAS, MINOO Rivera Accession Number [id number] CPT4 Codes 88967 () Reason For Exam pre op CABG please ted legs Report [facility] Bilateral LE Vein Mapping For Bypass Report Ordering Physician: Minoo Encinas Administrative Clerk: Yamilet Cortes RVT Interpreting Physician: Charlie Solano MD Location: [facility] Indications: Pre-op bypass. Conclusions 1. The right great saphenous vein and left great saphenous veinappears patent. 2. Vein sizes as noted below. Study data: Bilateral lower extremity vein mapping. Grayscale 2D imaging. Location: Vascular laboratory. Procedure: A vascular evaluation was performed with the patient in the supine position. Images were obtained using a [employer] E9 vascular ultrasound machine. Vein mapping: + [...] 9:10 am Signed by: CHARLIE SOLANO Normal [facility] Glucose,Bedsideon 02-24-2019 Glucose [Mass/Vol] 285 mg/dL High 70-100 [facility] Comment on above: Result Comment: Test performed by glucose meter. Results may be 10%-15% lower than serum/plasma values. (CLIA ID [id number]) Performed By: #### B GLU #### [address] [place] [address] Glucose [Mass/Vol] 290 mg/dL High 70-100 [facility] Comment on above: Result Comment: Test performed by glucose meter. Results may be 10%-15% lower than serum/plasma values. (CLIA ID [id number]) Performed By: #### B GLU #### [facility] [address] [place] [address] Glucose [Mass/Vol] 302 mg/dL High 70-100 [facility] Comment on above: Result Comment: Test performed by glucose meter. Results may be 10%-15% lower than serum/plasma values. (CLIA ID [id number]) Performed By: #### B GLU #### [facility] [address] [place] [address] POCT Glucoseon 02-24-2019 Glucose [Mass/Vol] 272 mg/dL High 70 - 100 mg/dL [place] Comment on above: Test performed by gl ucose meter. Results may be 10%-15% lower than serum/plasma values. (CLIA ID [id number]) Interpretation and review of laboratory results Abnormal [place] Test Performed by [facility], [address] [place] [address] [place] Glucose [Mass/Vol] 285 mg/dL High 70 - 100 mg/dL [place] Comment on above: Test performed by gl ucose meter. Results may be 10%-15% lower than serum/plasma values. (CLIA ID [id number]) Interpretation and review of laboratory results Abnormal [facility] [place] Test Performed by [facility], [address] [place] [address] [facility] [place] Glucose [Mass/Vol] 290 mg/dL High 70 - 100 mg/dL [facility] [place] Comment on above: Test performed by gl ucose meter. Results may be 10%-15% lower than serum/plasma values. (CLIA ID [id number]) Interpretation and review of laboratory results Abnormal [facility] [place] Test Performed by [facility], [address] [place] [address] [facility] [place] Glucose [Mass/Vol] 302 mg/dL High 70 - 100 mg/dL [facility] [place] Comment on above: Test performed by gl ucose meter. Results may be 10%-15% lower than serum/plasma values. (CLIA ID [id number]) Interpretation and review of laboratory results Abnormal [facility] [place] Test Performed by [facility], [address] [place] [address] [facility] [place] Bedside spirometryon [address] [place] [address] Incoming Cardiology Results From [facility] - 02/28/2019 12:48 PM EST Name: CHRISTY FRANCIS PatientID: [id number] Gender: Female Birthdate: 1950 Study Date: 02/23/2019 3:15:42 P Age: 69 Race: Other Race Height: 62.0 in, 157.5 cm Weight: 176.0 lbs, 80.0 kg Smoke Status: Smokes Pack Years: 26.Tbco Prod: Cigarettes Ordering Physician: [id number] Interpreting Physician: [id number] Shot Core Drill Operator Helper: Jennifer Pressley Location: [facility] Diagnosis: CAD, HFrEF, pre-surgical values Spirometry Units Pred PreDrug Pre%Pred Post Post%Pred %Change FVC L,btps 2.79 1.80 64. FEV1 L,btps 2.11 1.33 63. FEV1/FVC (%) % 76. 74. 97. YTY93-37% L/s 1.83 1.01 55. FEFmax L/s 5.42 [...] /MIP cmH2O -68.81 PEmax /MEP cmH2O 90.11 ANALYSIS REPORTING DEVELOPER NOTES Calibration check passed with acceptable system performance. Spirometry best effort, met acceptability and repeatability guidelines. Pt sitting upright in bedside chair with both feet on ground. [address] [place]ILBER Tests to perform: RT17 - BEDSIDE [...] Possible moderate restriction #2. Small airways obstruction [place] Name: CHRISTY FRANCIS PatientID: [id number] Gender: Female Birthdate: 1950 Study Date: 02/23/2019 3:15:42 P Age: 69 Race: Other Race Height: 62.0 in, 157.5 cm Weight: 176.0 lbs, 80.0 kg Smoke Status: Smokes Pack Years: 26.Tbco Prod: Cigarettes Ordering Physician: [id number] Interpreting Physician: [id number] Shot Core Drill Operator Helper: Jennifer Testing Location: [facility] Diagnosis: CAD, HFrEF, pre-surgical values Spirometry Units Pred PreDrug Pre%Pred Post Post%Pred %Change FVC L,btps 2.79 1.80 64. FEV1 L,btps 2.11 1.33 63. FEV1/FVC (%) % 76. 74. 97. YUV42-63% L/s 1.83 1.01 55. FEFmax L/s 5.42 [...] /MIP cmH2O -68.81 PEmax /MEP cmH2O 90.11 ANALYSIS REPORTING DEVELOPER NOTES Calibration check passed with acceptable system performance. Spirometry best effort, met acceptability and repeatability guidelines. Pt sitting upright in bedside chair with both feet on ground. [address]- [place] Tests to perform: RT17 - BEDSIDE [...] Possible moderate restriction #2. Small airways obstruction [place], [place] CBCon 02-23-2019 Erythrocyte distribution width (RBC) [Ratio] 13.1 % 11.5 - 14.5 % [place] Hematocrit (Bld) [Volume fraction] 44.3 % 35 - 47 % [place] Hemoglobin (Bld) [Mass/Vol] 15.1 g/dL 11.7 - 16 g/dL [place] MCH (RBC) [Entitic mass] 30.8 pg 26 - 34 pg [place] MCHC (RBC) [Mass/Vol] 34.0 % 32 - 36 % [place] MCV (RBC) [Entitic vol] 90.3 fL 79 - 98 fL [place], [place] Platelet mean volume (Bld) [Entitic vol] 9.4 fL 7.4 - 10.4 fL [place], [place] Platelets (Bld) [#/Vol] 212 10*3/uL 140 - 440 10*3/uL [place] RBC (Bld) [#/Vol] 4.90 10*6/uL 3.8 - 5.2 10*6/uL [place] WBC (Bld) [#/Vol] 8.6 10*3/uL 3.6 - 10.7 10*3/uL [place] Test Performed by [facility], [address] [place] [address] [place] CR Chest Portableon 02-24-20 19 CR Chest Portable Patient Name: CHRISTY FRANCIS Diagnostic Radiology Exam Date/Time 02/23/2019 17:30:22 EST Exam CR Chest Portable Ordering Physician RICHY ENCINAS, MINOO Rivera Accession Number [id number] CPT4 Codes 45337 () Reason For Exam preop CABG Report [...] Transcribed Date and Time: 02/23/2019 9:18 Normal [facility] Comp Panel with Mg Reflexon 02-23-2019 Calcium [Mass/Vol] 9.1 mg/dL Normal 8.4-10.4 [facility] Comment on above: Performed By: #### Papito AVILA CMP3M #### [facility] [address], [place] ALP [Catalytic activity/Vol] 57 U/L Normal 38-126 [facility] Comment on above: Performed By: #### Papito AVILA CMP3M #### [facility] [address], [place] ALT [Catalytic activity/Vol] 53 U/L Normal 13-69 [facility] Comment on above: Performed By: #### Papito AVILA CMP3M #### [facility] [address], [place] Anion gap [Moles/Vol] 8 Normal [facility] Comment on above: Performed By: #### Papito AVILA CMP3M #### [facility] [address], [place] AST [Catalytic activity/Vol] 49 U/L High 15-46 [facility] Comment on above: Performed By: #### Papito AVILA CMP3M #### [facility] [address], [place] Bilirubin [Mass/Vol] 0.5 mg/dL Normal 0.2-1.3 [facility] Comment on above: Performed By: #### Papito AVILA CMP3M #### [facility] [address], [place] CO2 [Moles/Vol] 21 mmol/L Low 22-30 [facility] Comment on above: Performed By: #### H AUSTIN CMP3M #### [facility] [address], [place] Glucose [Mass/Vol] 288 mg/dL High 70-100 [facility] Comment on above: Performed By: #### H AUSTIN CMP3M #### [facility] [address], [place] Protein [Mass/Vol] 7.0 g/dL Normal 6.3-8.2 [facility] Comment on above: Performed By: #### H AUSTIN CMP3M #### [facility] [address], [place] Urea nitrogen [Mass/Vol] 24 mg/dL High 7-20 [facility] Comment on above: Performed By: #### H AUSTIN CMP3M #### [facility] [address], [place] Creatinine [Mass/Vol] 1.03 mg/dL Normal 0.52-1.25 [facility] Comment on above: Performed By: #### H AUSTIN CMP3M #### [facility] [address], [place] GFR/1.73 sq M predicted among blacks MDRD (S/P/Bld) [Vol rate/Area] mL/min/{1.73_m2} Normal >60 [facility] Comment on above: Performed By: #### H AUSTIN CMP3M #### [facility] [address], [place] GFR/1.73 sq M predicted among non-blacks MDRD (S/P/Bld) [Vol rate/Area] 53.1 mL/min/{1.73_m2} Normal >60 [facility] Comment on above: Result Comment: Sour ce- MDRD equation with creatinine calibration to IDMS(NKDEP) eGFR not recommended for drug dose adjustment Performed By: #### H AUSTIN CMP3M #### [facility] [address], [place] Albumin [Mass/Vol] 3.9 g/dL Normal 3.5-5.0 [facility] Comment on above: Performed By: #### H MEGHNA AVILA3M #### [facility] [address], [place] Chloride [Moles/Vol] 106 mmol/L Normal 98-107 [facility] Comment on above: Performed By: #### H MEGHNA AVILA3M #### [facility] [address], [place] Potassium [Moles/Vol] 4.8 mmol/L Normal 3.5-5.1 [facility] Comment on above: Performed By: #### H MEGHNA AVILA3M #### [facility] [address], [place] Sodium [Moles/Vol] 136 mmol/L Normal 135-145 [facility] Comment on above: Performed By: #### Papito AVILA CMP3M #### [facility] [address], [place] Comprehensive Metabolic Pane l w/ Reflex to MGon 02-23-2019 Albumin [Mass/Vol] 3.9 g/dL 3.5 - 5 g/dL [place] ALP [Catalytic activity/Vol] 57 U/L 38 - 126 U/L [place] ALT [Catalytic activity/Vol] 53 U/L 13 - 69 U/L [place], [place] Anion gap [Moles/Vol] 8 mmol/L [place], [place] AST [Catalytic activity/Vol] 49 U/L High 15 - 46 U/L [place] Bilirubin Ql (U) 0.5 mg/dL 0.2 - 1.3 mg/dL [place] Calcium [Mass/Vol] 9.1 mg/dL 8.4 - 10. 4 mg/dL [place] Chloride [Moles/Vol] 106 mmol/L 98 - 10 7 mmol/L [place] CO2 [Moles/Vol] 21 mmol/L Low 22 - 30 mmol/L [place] Creatinine [Mass/Vol] 1.03 mg/dL 0.52 - 1.25 mg/dL [place] EGFR IF NonAfrican [place]ian 53.1 mL/min >60 [place] Comment on above: Source- MDRD equatio n with creatinine calibration to IDMS(NKDEP) eGFR not recommended for drug dose adjustment GFR/1.73 sq M predicted among blacks MDRD (S/P/Bld) [Vol rate/Area] mL/min/{1.73_m2} >60 mL/min [place], [place] Glucose [Mass/Vol] 288 mg/dL High 70 - 100 mg/dL [place] Interpretation and review of laboratory results Abnormal [place] Potassium [Moles/Vol] 4.8 mmol/L 3.5 - 5.1 mmol/L [place] Protein [Mass/Vol] 7.0 g/dL 6.3 - 8.2 g/dL [place] Sodium [Moles/Vol] 136 mmol/L 135 - 145 mmol/L [place], [place] Urea nitrogen [Mass/Vol] 24 mg/dL High 7 - 20 mg/dL [place] Test Performed by [facility], [address] [place] [id number] [place] [address] Glucose,Bedsideon 02-23-2019 Glucose [Mass/Vol] 296 mg/dL High 70-100 [place] Comment on above: Test performed by gl ucose meter. Results may be 10%-15% lower than serum/plasma values. (CLIA ID [id number]) Result Comment: Test performed by glucose meter. Results may be 10%-15% lower than serum/plasma values. (CLIA ID [id number]) Performed By: #### B GLU #### [address] [address] Glucose [Mass/Vol] 328 mg/dL High 70-100 [facility] Comment on above: Result Comment: Test performed by glucose meter. Results may be 10%-15% lower than serum/plasma values. (CLIA ID [id number]) Performed By: #### B GLU #### [address] [place], [place] Glucose [Mass/Vol] 348 mg/dL High 70-100 [facility] Comment on above: Result Comment: Test performed by glucose meter. Results may be 10%-15% lower than serum/plasma values. (CLIA ID [id number]) Performed By: #### B GLU #### [address], [place] Glucose [Mass/Vol] 315 mg/dL High 70-100 [facility] Comment on above: Result Comment: Test performed by glucose meter. Results may be 10%-15% lower than serum/plasma values. (CLIA ID [id number]) Performed By: #### B GLU #### [address], [place] Hemogramon 02-23-2019 Erythrocyte distribution width (RBC) [Ratio] 13.1 % Normal 11.5-14.5 [facility] Comment on above: Performed By: #### Papito AVILA CMP3M #### [address] [place], [place] Hematocrit (Bld) [Volume fraction] 44.3 % Normal 35.0-47.0 [facility] Comment on above: Performed By: #### Papito AVILA CMP3M #### [address] [place], [place] Hemoglobin (Bld) [Mass/Vol] 15.1 g/dL Normal 11.7-16.0 [facility] Comment on above: Performed By: #### Papito AVILA CMP3M #### [address] [place], [place] MCH (RBC) [Entitic mass] 30.8 pg Normal 26.0-34.0 [facility] Comment on above: Performed By: #### Papito AVILA CMP3M #### [address] [place], [place] MCHC (RBC) [Mass/Vol] 34.0 % Normal 32.0-36.0 [facility] Comment on above: Performed By: #### Papito AVILA CMP3M #### [facility] [address] [place] [address] MCV (RBC) [Entitic vol] 90.3 fL Normal 79.0-98.0 [facility] Comment on above: Performed By: #### H AUSTIN CMP3M #### [facility] [address] [place] [address] Platelet mean volume (Bld) [Entitic vol] 9.4 fL Normal 7.4-10.4 [facility] Comment on above: Performed By: #### H AUSTIN CMP3M #### [address] [place] [address] Platelets (Bld) [#/Vol] 212 10*3/uL Normal 140-440 [facility] Comment on above: Performed By: #### H AUSTIN CMP3M #### [address] [place], [place] RBC (Bld) [#/Vol] 4.90 10*6/uL Normal 3.80-5.20 [facility] Comment on above: Performed By: #### H AUSTIN CMP3M #### [address] [address] [place] [address] WBC (Bld) [#/Vol] 8.6 10*3/uL Normal 3.6-10.7 [facility] Comment on above: Performed By: #### Papito AVILA CMP3M #### [address] [address] [place] [address] POCT Glucoseon 02-23-2019 Interpretation and review of laboratory results Abnormal [employer] [place], [place] Test Performed by [facility], [address] [place] [address] [place], [place] Glucose [Mass/Vol] 328 mg/dL High 70 - 100 mg/dL [facility] Comment on above: Test performed by gl ucose meter. Results may be 10%-15% lower than serum/plasma values. (CLIA ID [id number]) Interpretation and review of laboratory results Abnormal [place], [place] Test Performed by [facility], [facility] [place] [address] [place], [place] Glucose [Mass/Vol] 348 mg/dL High 70 - 100 mg/dL [place], [place] Comment on above: Test performed by gl ucose meter. Results may be 10%-15% lower than serum/plasma values. (CLIA ID [id number]) Interpretation and review of laboratory results Abnormal [facility], [place] Test Performed by [facility], [address] [place] [address] [place], [place] Glucose [Mass/Vol] 315 mg/dL High 70 - 100 mg/dL [place] Comment on above: Test performed by gl ucose meter. Results may be 10%-15% lower than serum/plasma values. (CLIA ID [id number]) Interpretation and review of laboratory results Abnormal [place] Test Performed by [facility], [address] [place] [address] [place] XR CHEST PORTABLEon 02-24-20 Patient Name: CHRISTY FRANCIS ---Diagnostic Radiology--- Exam Date/Time 02/23/2019 17:30:22 EST Exam CR Chest Portable Ordering Physician RICHY ENCINAS, MINOO Rivera Accession Number [id number] CPT4 Codes 82242 () Reason For Exam preop CABG Report [...] ALFRED Transcribed Date and Time: 02/23/2019 9:18 [place], [place] Brian, Kathie Incoming Radiology Results From [facility] - 02/23/2019 9:20 PM EST Patient Name: CHRISTY FRANCIS ---Diagnostic Radiology--- Exam Date/Time 02/23/2019 17:30:22 EST Exam CR Chest Portable Ordering Physician RICHY ENCINAS, MINOO Rivera Accession Number [id number] CPT4 Codes 09550 () Reason For Exam preop CABG Report [...] ALFRED Transcribed Date and Time: 02/23/2019 9:18 [place] Glucose,Bedsideon 02-22-2019 Glucose [Mass/Vol] 283 mg/dL High 70-100 [facility] Comment on above: Result Comment: Test performed by glucose meter. Results may be 10%-15% lower than serum/plasma values. (CLIA ID [id number]) Performed By: #### B GLU #### [facility] [address] [place] [address] Glucose [Mass/Vol] 200 mg/dL High 70-100 [facility] Comment on above: Result Comment: Test performed by glucose meter. Results may be 10%-15% lower than serum/plasma values. (CLIA ID [id number]) Performed By: #### B GLU #### [facility] [address] [place] [address] POCT Glucoseon 02-22-2019 Glucose [Mass/Vol] 283 mg/dL High 70 - 100 mg/dL [place] Comment on above: Test performed by gl ucose meter. Results may be 10%-15% lower than serum/plasma values. (CLIA ID [id number]) Interpretation and review of laboratory results Abnormal [place], [place] Test Performed by Zelaya Storitz, [facility] [place] [address] [employer], [place] Glucose [Mass/Vol] 200 mg/dL High 70 - 100 mg/dL [facility] [place] Comment on above: Test performed by gl ucose meter. Results may be 10%-15% lower than serum/plasma values. (CLIA ID [id number]) Interpretation and review of laboratory results Abnormal [place], [place] Test Performed by Zelaya Storitz, [facility] [place] [address] [facility] [place] [place] Vital Signs Date Time Vital Sign Value Performing Clinician Facility 2025 07:55-0400 Body height 157.[address] Marielos Perla DO Work Phone: [facility] 2025 07:55-0400 Body mass index (BMI) [Ratio] 30.5 kg/m2 Dr. aMrielos Perla DO Work Phone: [facility] 2025 07:55-0400 Body weight 75.[address] Marielos Perla DO Work Phone: [facility] 2025 07:55-0400 Diastolic blood pressure 75 mm[Hg] Dr. Marielos Perla DO Work Phone: [facility] 2025 07:55-0400 Heart rate 93 /min Dr. Marielos Perla DO Work Phone: [facility] 2025 07:55-0400 Respiratory rate 18 /min Dr. Marielos Perla DO Work Phone: [facility] 2025 07:55-0400 SaO2% (BldA) [Mass fraction] 96 % Dr. Marielos Perla DO Work Phone: [facility] 2025 07:55-0400 Systolic blood pressure 131 mm[Hg] Dr. Marielos Perla DO Work Phone: [facility] 01-18-2025 09:28-0400 Body height 157.[address] Marielos Perla DO Work Phone: [facility] 01-18-2025 09:28-0400 Body mass index (BMI) [Ratio] 29.9 kg/m2 Dr. Marielos Perla DO Work Phone: [facility] 01-18-2025 09:28-0400 Body weight 74.[address] Marielos Perla DO Work Phone: [facility] 01-10-2025 10:46-0400 Body height 157.[address] Marielos Perla DO Work Phone: [facility] 01-10-2025 10:46-0400 Body mass index (BMI) [Ratio] 30.5 kg/m2 Dr. Marielos Perla DO Work Phone: [facility] 01-10-2025 10:46-0400 Body weight 75.[address] Marielos Perla DO Work Phone: [facility] 01-10-2025 10:46-0400 Diastolic blood pressure 74 mm[Hg] Dr. Marielos Perla DO Work Phone: [facility] 01-10-2025 10:46-0400 Heart rate 98 /min Dr. Marielos Perla DO Work Phone: [facility] 01-10-2025 10:46-0400 Systolic blood pressure 125 mm[Hg] Dr. Marielos Perla DO Work Phone: [facility] 01-08-2025 16:00-0400 Diastolic blood pressure 105 mm[Hg] Dr. Marielos Perla DO Work Phone: [facility] 01-08-2025 16:00-0400 Heart rate 89 /min Dr. Marielos Perla DO Work Phone: [facility] 01-08-2025 16:00-0400 Respiratory rate 14 /min Dr. Marielos Perla DO Work Phone: [facility] 01-08-2025 16:00-0400 SaO2% (BldA) [Mass fraction] 92 % Dr. Marielos Perla DO Work Phone: [facility] 01-08-2025 16:00-0400 Systolic blood pressure 122 mm[Hg] Dr. Marielos Perla DO Work Phone: [facility] 01-08-2025 07:45-0400 Body temperature 97.4 [degF] Dr. Marielos Perla DO Work Phone: [facility] 01-07-2025 16:04-0400 Body mass index (BMI) [Ratio] 30.2 kg/m2 Dr. Marielos Perla DO Work Phone: [facility] 01-07-2025 16:04-0400 Body weight 75.[address] Marielos Perla DO Work Phone: [facility] 01-03-2025 09:30-0400 Body temperature 97.7 [degF] Dr. Marielos Perla DO Work Phone: [facility] 01-03-2025 09:30-0400 Body weight 74.[address] Marielos Perla DO Work Phone: [facility] 01-03-2025 09:30-0400 Diastolic blood pressure 64 mm[Hg] Dr. Marielos Perla DO Work Phone: [facility] 01-03-2025 09:30-0400 Heart rate 106 /min Dr. Marielos Perla DO Work Phone: [facility] 01-03-2025 09:30-0400 Respiratory rate 16 /min Dr. Marielos Perla DO Work Phone: [facility] 01-03-2025 09:30-0400 SaO2% (BldA) [Mass fraction] 97 % Dr. Marielos Perla DO Work Phone: [facility] 01-03-2025 09:30-0400 Systolic blood pressure 108 mm[Hg] Dr. Marielos Perla DO Work Phone: [facility] 12-12-2024 10:53-0400 Body temperature 97.7 [degF] Dr. Marielos Perla DO Work Phone: [facility] 12-12-2024 10:53-0400 Body weight 76.[address] Marielos Perla DO Work Phone: [facility] 12-12-2024 10:53-0400 Diastolic blood pressure 78 mm[Hg] Dr. Marielos Perla DO Work Phone: [facility] 12-12-2024 10:53-0400 Heart rate 112 /min Dr. Marielos Perla DO Work Phone: [facility] 12-12-2024 10:53-0400 Respiratory rate 18 /min Dr. Marielos Perla DO Work Phone: [facility] 12-12-2024 10:53-0400 SaO2% (BldA) [Mass fraction] 98 % Dr. Marielos Perla DO Work Phone: [facility] 12-12-2024 10:53-0400 Systolic blood pressure 126 mm[Hg] Dr. Marielos Perla DO Work Phone: [facility] 11-02-2024 10:17-0400 Body height 157.[address] Marielos Perla DO Work Phone: [facility] 11-02-2024 10:17-0400 Body mass index (BMI) [Ratio] 30.5 kg/m2 Dr. Marielos Perla DO Work Phone: [facility] 11-02-2024 10:17-0400 Body weight 75.[address] Marielos Perla DO Work Phone: [facility] 11-02-2024 10:17-0400 Diastolic blood pressure 65 mm[Hg] Dr. Marielos Perla DO Work Phone: [facility] 11-02-2024 10:17-0400 Respiratory rate 18 /min Dr. Marielos Perla DO Work Phone: [facility] 11-02-2024 10:17-0400 Systolic blood pressure 112 mm[Hg] Dr. Marielos Perla DO Work Phone: [facility] 06-05-2024 10:52-0500 Body height 157.[address] Marielos Perla DO Work Phone: [facility] 06-05-2024 10:52-0500 Body mass index (BMI) [Ratio] 34.2 kg/m2 Dr. Marielos Perla DO Work Phone: [facility] 06-05-2024 10:52-0500 Body weight 84.[address] Marielos Perla DO Work Phone: [facility] 06-05-2024 10:52-0500 Diastolic blood pressure 73 mm[Hg] Dr. Marielos Perla DO Work Phone: [facility] 06-05-2024 10:52-0500 Heart rate 98 /min Dr. Marielos Perla DO Work Phone: [facility] 06-05-2024 10:52-0500 Respiratory rate 18 /min Dr. Marielos Perla DO Work Phone: [facility] 06-05-2024 10:52-0500 Systolic blood pressure 119 mm[Hg] Dr. Marielos Perla DO Work Phone: [facility] 11-18-2022 13:38-0400 Body height 157.[address] Marielos Perla Work Phone: [facility] 11-18-2022 13:38-0400 Body mass index (BMI) [Ratio] 35.8 kg/m2 Dr. Marielos Perla Work Phone: [facility] 11-18-2022 13:38-0400 Body weight 88.[address] Marielos Perla Work Phone: [facility] 11-18-2022 13:38-0400 Diastolic blood pressure 80 mm[Hg] Dr. Marielos Perla Work Phone: [facility] 11-18-2022 13:38-0400 Heart rate 93 /min Dr. Marielos Perla Work Phone: [facility] 11-18-2022 13:38-0400 Respiratory rate 18 /min Dr. Marielos Perla Work Phone: [facility] 11-18-2022 13:38-0400 SaO2% (BldA) [Mass fraction] 95 % Dr. Marielos Perla Work Phone: [facility] 11-18-2022 13:38-0400 Systolic blood pressure 146 mm[Hg] Dr. Marielos Perla Work Phone: [facility] 08-20-2022 09:54-0400 Body height 157.[address] Marielos Perla Work Phone: [facility] 08-20-2022 09:54-0400 Body mass index (BMI) [Ratio] 35.3 kg/m2 Dr. Marielos Perla Work Phone: [facility] 08-20-2022 09:54-0400 Body weight 87.[address] Marielos Perla Work Phone: [facility] 08-20-2022 09:54-0400 Diastolic blood pressure 79 mm[Hg] Dr. Marielos Perla Work Phone: [facility] 08-20-2022 09:54-0400 Heart rate 76 /min Dr. Marielos Perla Work Phone: [facility] 08-20-2022 09:54-0400 Respiratory rate 18 /min Dr. Marielos Perla Work Phone: [facility] 08-20-2022 09:54-0400 Systolic blood pressure 139 mm[Hg] Dr. Marielos Perla Work Phone: [facility] 03-29-2022 18:34-0500 Body temperature 98.3 [degF] [facility] 03-29-2022 18:34-0500 Diastolic blood pressure 85 mm[Hg] [facility] 03-29-2022 18:34-0500 Heart rate 74 /min [facility] 03-29-2022 18:34-0500 Respiratory rate 18 /min [facility] 03-29-2022 18:34-0500 SaO2% (BldA) [Mass fraction] 99 % [facility] 03-29-2022 18:34-0500 Systolic blood pressure 125 mm[Hg] [facility] 03-29-2022 17:27-0500 Body height 157.48 cm [facility] 03-29-2022 17:27-0500 Body mass index (BMI) [Ratio] 33.8 kg/m2 [facility] 03-29-2022 17:27-0500 Body weight 83.91 kg [facility] 03-03-2019 15:30-0500 BP Diastolic 55 mm[Hg] [facility] [place] [facility] [place] 03-03-2019 15:30-0500 BP Systolic 124 mm[Hg] [facility] [place] 03-03-2019 15:30-0500 Pulse (Heart Rate) 83 /min [place] 03-03-2019 15:30-0500 Pulse Oximetry 96 % [facility] [place] 03-03-2019 15:30-0500 Respiratory Rate 18 /min [facility], [place] 03-03-2019 11:51-0500 Body Temperature 97.81 [degF] [facility], [place] 03-03-2019 00:00-0500 BMI (Body Mass Index) 34.14 kg/m2 [facility], [place] 03-03-2019 00:00-0500 Body weight 81.97 kg Mil [place], [place] 02-28-2019 12:00-0500 Height 154.9 cm [place], [place] Encounters Encounter Date Encounter Type Care Provider Facility Start: 03-22-2025 ambulatory Yaa Buenrostro lity:[facility] Start: 03-08-2025 ambulatory Jennifer HOLLAND Facility:[facility] Start: 02-26-2025 End: 02-26-2025 ambulatory Lidia Santiago [facility] Start: 02-14-2025 End: 02-14-2025 ambulatory Grant Torres Facility:[facility] Start: 02-14-2025 End: 02-14-2025 ambulatory Marielos Perla Facility:[facility] Start: 02-13-2025 End: 02-13-2025 ambulatory Lidia Santiago Facility:[facility] Start: 2025 End: 2025 Patient encounter procedure Akin HOLLAND -Laboratory Work Phone: Start: 2025 End: 2025 Patient encounter procedure Akin HOLLAND -[facility] Work Phone: Start: 2025 End: [address] Marielos Perla DO Work Phone: -[facility] Start: 2025 End: 2025 ambulatory Akin Jauregui Facility:[facility] Start: 01-29-2025 End: 01-29-2025 Patient encounter procedure Lamar Olivera PUMP TECHNICIAN-C -Outpatient [facility] Work Phone: Start: 01-29-2025 End: 01-29-2025 ambulatory Lamar Olivera NP Facility:[facility] Start: 01-22-2025 End: 01-22-2025 Patient encounter procedure Ava Young PA -Cat Scan [facility] Work Phone: Start: 01-22-2025 End: 01-22-2025 ambulatory Ava Young Facility:[facility] Start: 01-18-2025 End: 01-18-2025 Patient encounter procedure Lidia HOLLAND -[facility] Work Phone: Start: 01-18-2025 End: 01-18-[address] Marielos Perla DO Work Phone: -[facility] Start: 01-10-2025 End: 01-10-[address] Marielos Perla DO Work Phone: -[facility]atory [facility] Start: 01-10-2025 End: 01-10-2025 Patient encounter procedure Lamar Olivera PUMP TECHNICIAN-C -Laboratory Specimen Work Phone: Start: 01-10-2025 End: 01-10-2025 Patient encounter procedure Lamar Olivera PUMP TECHNICIAN-C -[facility] Work Phone: Start: 01-10-2025 End: 01-10-[address] Marielos Perla DO Work Phone: -[facility] Start: 01-10-2025 End: 01-10-2025 ambulatory Lamarosiris Olivera PUMP TECHNICIAN Facility:[facility] Start: 01-08-2025 Non-patient / Non-visit Dr. Rupali Lott DO -[facility] Work Phone: Start: 01-08-2025 Non-patient / Non-visit Dr. Fred ROMERO -[facility] Start: 01-07-2025 End: 01-08-2025 ambulatory Jorge Anderson Facility:[facility] Start: 01-07-2025 End: 01-08-2025 Evaluation and management of inpatient Dr. Rupali Lott DO -Progressive Care Unit Work Phone: Start: 01-07-2025 End: 01-08-[address] Marielos Perla DO Work Phone: -Progressive Care Unit Start: 01-03-2025 End: 01-03-2025 Patient encounter procedure Ava HOLLAND -[facility] Work Phone: Start: 01-03-2025 End: 01-03-[address] Marielos Perla DO Work Phone: -[facility] Start: 12-22-2024 Non-patient / Non-visit Dr. Grant coburn MD -[facility] Start: 12-22-2024 End: 12-22-[address] Marielos Perla DO Work Phone: -Cardiovascular Services Start: 12-22-2024 End: 12-22-2024 Patient encounter procedure Ava HOLLAND -Cardiovascular Services Work Phone: Start: 12-22-2024 End: 12-22-2024 ambulatory Ava Young Facility:[facility] Start: 12-12-2024 End: 12-12-2024 Patient encounter procedure Ava HOLLAND -[facility] Work Phone: Start: 12-12-2024 End: 12-12-[address] Marielos Perla DO Work Phone: -[facility] Start: 12-06-2024 End: 12-06-[address] Marielos Perla DO Work Phone: -[facility]atory [place] Start: 12-06-2024 End: 12-06-2024 Patient encounter procedure Jennifer HOLLAND -[facility] Work Phone: Start: 12-06-2024 End: 12-06-2024 ambulatory Jennifer HOLLAND Facility:[facility] Start: 11-29-2024 End: 11-29-[address] Marielos Perla DO Work Phone: -[facility] Start: 11-29-2024 End: 11-29-[address] Marielos Perla DO -[facility] Work Phone: Start: 11-29-2024 End: 11-29-2024 ambulatory Marielos Perla Facility:[facility] Start: 11-02-2024 End: 11-02-2024 Patient encounter procedure Jennifer HOLLAND -[facility] Work Phone: Start: 11-02-2024 End: 11-02-[address] Marielos Perla DO Work Phone: -[facility] Start: 11-02-2024 End: 11-02-2024 ambulatory Jennifer HOLLAND Facility:[facility] Start: 09-18-2024 End: 09-18-[address] Marielos Perla DO Work Phone: [facility] Work Phone: Start: 09-18-2024 End: 09-18-2024 Patient encounter procedure Rand Mckeon PUMP TECHNICIAN-C -Radiology [place] Work Phone: Start: 09-18-2024 End: 09-18-2024 ambulatory Rand Mckeon Facility:[facility] Start: 06-05-2024 End: 06-05-2024 Patient encounter procedure Charlie Johnson PUMP TECHNICIAN-C -[employer] Work Phone: Start: 06-05-2024 End: 06-05-2024 ambulatory Charlie Johnson NP Facility:[facility] Start: 03-09-2024 End: 03-09-2024 ambulatory Charlie Johnson PUMP TECHNICIAN Facility:[facility] Start: 07-19-2023 End: 07-19-2023 ambulatory [facility] Work Phone: Start: 07-19-2023 End: 07-19-2023 Patient encounter procedure [facility]-Radiology, [place] Work Phone: Start: 06-14-2023 End: 06-14-2023 ambulatory [facility] Work Phone: Start: 06-14-2023 End: 06-14-2023 Patient encounter procedure [facility]-Cat Scan, [facility] Work Phone: Start: 11-25-2022 End: 11-25-[address] Marielos Perla Work Phone: [facility] Work Phone: Start: 11-25-2022 End: 11-25-[address] Marielos Perla Work Phone: [facility]-Pulmonary Services/Neurology Work Phone: Start: 11-23-2022 End: 11-23-[address] Marielos Perla Work Phone: [facility] Work Phone: Start: 11-23-2022 End: 11-23-[address] Marielos Perla Work Phone: [facility] Start: 11-18-2022 End: 11-18-[address] Marielos Perla Work Phone: [facility] Work Phone: Start: 08-20-2022 End: 08-20-[address] Marielos Perla Work Phone: [facility] Work Phone: Start: 08-14-2022 End: 08-14-[address] Marielos Perla Work Phone: [facility] Work Phone: Start: 08-14-2022 End: 08-14-[address] Marielos Perla Work Phone: [facility]-Laboratory Start: 07-08-2022 End: 07-08-[address] Marielos Perla Work Phone: [facility] Work Phone: Start: 07-08-2022 End: 07-08-[address] Marielos Perla Work Phone: [facility]-Cardiovascula r Services Start: 06-16-[address] Marielos Perla Work Phone: [facility]-Physical Therapy Start: 06-09-2022 End: 06-09-[address] Marielos Perla Work Phone: [facility] Start: 05-23-2022 End: 05-23-2022 ambulatory [facility] Work Phone: Start: 05-23-2022 End: 05-23-2022 Patient encounter procedure [facility]-MRI - [facility] Start: 03-29-2022 End: 03-29-2022 Emergency department patient visit [facility]-Emergency Department Start: 02-25-2022 End: 02-25-2022 ambulatory [facility] Work Phone: Start: 02-25-2022 End: 02-25-2022 Patient encounter procedure [facility]-Laboratory Start: 02-22-2019 End: 03-03-2019 Evaluation and management of inpatient Mil Pettit Work Phone: [facility] Comment on above: CAD in [place] artery (Primary Dx); S/P CABG x 3; Type 2 diabetes mellitus with other circulatory complication, with long-term current use of insulin (HCC) Procedures Date Procedure Procedure Detail Performing Clinician Start: 01-29-2025 Screening mammography D r. Marielos Perla DO Work Phone: Start: 01-22-2025 CT of abdominal aort a with contrast Dr. Marielos Perla DO Work Phone: Start: 01-18-2025 X-ray of lumbosacral spine Dr. Marielos Perla DO Work Phone: Start: 01-07-2025 CT angiography of ch est with contrast Dr. Marielos Perla DO Work Phone: Start: 01-07-2025 Radiologic exam chest [address] Marielos Perla DO Work Phone: Start: 01-07-2025 D-dimer assay, quantitative Dr. Mareilos Perla DO Work Phone: Comment on above: [...] stick/tabl et rgnt auto w/o microscopy Ronda Mia DalalHarry Work Phone: Start: 02-26-2019 Blood typing serologic abo Ronda Bellamy Harry Work Phone: Start: 02-26-2019 Prothrombin time [...] Start: 02-26-2019 Blood count complete automated Jayson Rina Domenica Work Phone: Start: 02-25-2019 Gluc bld gluc mntr d ev cleared fda spec home use Mil Pettit Work Phone: Start: 02-25-2019 Gluc bld gluc mntr d ev cleared fda spec home use Mil Pettit Work Phone: Start: 02-25-2019 Gluc bld gluc mntr d ev cleared fda spec home use iMl Pettit Work Phone: Start: 02-25-2019 Non-invasive physiol [...] 02-23-2019 Blood count complete auto&auto difrntl wbc Rosymalgorzata Conrad Work Phone: Start: 02-23-2019 Blood count [...] artery bypass graft x 3 Charlie Johnson PUMP TECHNICIAN-C Comment on above: CABG x3 with FOLEY to LAD, SVG to OM 2, and SVG to PDA of RCA on 02/27/[address] Taylor at [facility]; Plan of Treatment Date Care Activity Detail Author Start: 01-29-2025 MG Breast - bilatera l Screening [facility] Start: 01-18-2025 X-ray of lumbosacral spine L/S Spine Bending Flex/Ext [facility] Start: 01-18-2025 XR Spine Lumbar and Sacrum Views [facility] Start: 01-08-2025 Patient discharge [facility] Start: 01-08-2025 Notification of physician [facility] Start: 01-08-2025 Patient education [facility] Start: 01-08-2025 Provision of activit y privileges [facility] Start: 01-08-2025 Pulse taking [facility] Start: 01-08-2025 Taking patient vital signs [facility] Start: 01-08-2025 Wound care [facility] Start: 01-08-2025 [facility] Start: 01-08-2025 Catheterization of vein [facility] Start: 01-08-2025 Notification of physician [facility] Start: 01-08-2025 Preoperative care [facility] Start: 01-08-2025 [facility] Start: 01-07-2025 End: 01-07-2025 [facility] Start: 01-07-2025 Care regimes management [facility] Start: 01-07-2025 Notification of physician [facility] [facility] Start: 01-07-2025 Referral to propeller engineer [facility] Start: 01-07-2025 End: 01-07-2025 [facility] Start: 01-07-2025 Assessment of risk o f venous thromboembolism [facility] Start: 01-07-2025 Insertion of cathete r into peripheral vein [facility] Start: 01-07-2025 Measuring intake and output [facility] Start: 01-07-2025 Providing care accor ding to standard [facility] Start: 01-07-2025 Provision of activit y privileges [facility] Start: 01-07-2025 Referral for physica l therapy [facility] Start: 01-07-2025 Referral to occupati onal therapist [facility] Start: 01-07-2025 Following clinical pathway protocol [facility] Start: 01-07-2025 Admission procedure [facility] Start: 01-07-2025 [facility] Start: 01-03-2025 CT of abdominal aort a with contrast [facility] Start: 06-09-2022 Patient referral [facility] Work Phone: Start: 02-24-2020 Creatinine monitoring Creatinine mon [place]oring [place] Start: 02-24-2020 Potassium monitoring Potassium monit [place]ing [place] Start: 03-14-2019 End: 03-14-2019 Office Visit 03/14/2019 Office Visit Cardiothoracic Surgery Ronda Carmona, PAPER CONE GRADER - PANEL COVERER [address] [place] [address] [phone] [facility] Start: 02-24-2019 Annual Wellness Visi t (AWV) Annual Wellness Visit (AWV) [place] Start: 12-18-2018 Influenza vaccination Flu vaccine (# 1) [place] Start: 2015 DEXA (modify frequen cy per FRAX score) DEXA (modify frequency per FRAX score) [place] Start: 2015 Pneumococcal 65+ yea rs Vaccine (1 of 1 - PPSV23) Pneumococcal 65+ years Vaccine (1 of 1 - PPSV23) [place] Start: 01-31-2000 Breast cancer screen Breast cancer s creen [place] Start: 01-31-2000 Colon cancer screen colonoscopy Colon cancer screen colonoscopy [place] Start: 01-31-2000 Shingles Vaccine (1 of 2) Shingles V accine (1 of 2) [place] Start: 01-31-1968 Diabetic microalbumi ximena test Diabetic microalbuminuria test [place] Start: 1961 DTaP/Tdap/Td vaccine (1 - Tdap) DTaP/Tdap/Td vaccine (1 - Tdap) [place] Start: 01-31-1960 [object Object] Diabetic foot exam [place] Start: 01-31-1960 A1C test (Diabetic o r Prediabetic) A1C test (Diabetic or Prediabetic) [place] Start: 01-31-1960 Diabetic retinal exam Diabetic retin al exam [place] Start: 01-31-1960 Lipid screen Lipid screen [place] Start: 1950 Hepatitis C screen Hepatitis C scree n [place] Acapella Acapella Respira tory Care Routine Every 2hr while awake until discontinued starting 02/27/2019 [place] Comment on above: Every 2hr while awak e until discontinued starting 02/27/2019 Ankle brachial press ure index [facility] Basic metabolic 2000 panel Basic Metabolic Panel Lab Routine Daily until discontinued starting 02/27/2019, 4 completed [place] Comment on above: Daily until disconti nued starting 02/27/2019, 4 completed Basic metabolic 2008 panel with ionized calcium - Serum or Plasma [facility] Blood chemistry [facility] CBC CBC Lab Routine Daily until discontinued starting 02/27/2019, 5 completed [place] Comment on above: Daily until disconti nued starting 02/27/2019, 5 completed [facility] Treatment [place] Comment on above: 0800, 1200, 1600, 20 00 (respiratory use only) until discontinued starting 02/27/2019 Every 4hr until disc ontinued starting 03/02/2019 Incentive spirometry Incentive s pirometry Respiratory Care Routine Every 1hr while awake until discontinued starting 02/27/2019 [place] Comment on above: Every 1hr while awak e until discontinued starting 02/27/2019 Initiate Oxygen Ther apy Protocol Initiate Oxygen Therapy Protocol Respiratory Care Routine Daily until discontinued starting 02/27/2019 [place] Comment on above: Daily until disconti nued starting 02/27/2019 MR Lumbar spine [facility] Patient Education Bruises (Contu sions) ED Abrasion [facility] Work Phone: Patient referral [facility] Work Phone: POCT glucose [facility] [place] Comment on above: 4X Daily (AC & HS) u ntil discontinued starting 03/01/2019 As Needed until disc ontinued starting 03/01/2019 End: 02-23-2019 Urinalysis Urinalysis Lab Routine One Time for 1 Occurrences starting 02/23/2019 until 02/23/2019 [place] Comment on above: One Time for 1 Occur rences starting 02/23/2019 until 02/23/2019 Urinalysis Urinalysis Lab R outine 02/23/2019 6:49 PM EST [facility] XR CHEST PORTABLE XR CHEST MIHIR BLE Imaging Routine Daily until discontinued starting 02/28/2019, 4 completed [place] Comment on above: Daily until disconti nued starting 02/28/2019, 4 completed XR Lumbar spine 2 or 3 Views [facility] Immunizations Immunization Date Immunization Notes Care Provider Sher ferreira 01-18-2024 influenza, high dose seasonal, preservative-free Dr. Marielos Perla DO Work Phone: [facility] 07-11-2020 Covid (Pfizer) [facility] 07-09-2020 tetanus toxoid, redu deejay diphtheria toxoid, and acellular pertussis vaccine, adsorbed [facility] 06-20-2020 Covid (Pfizer) [facility] 02-01-2019 Influenza virus vaccine [facility] Payers Date Payer Category Payer Self-pay [id number] 2024 Unknown [id number] 2023 Medicare [id number] 2018 Medicare HUMANA MEDICARE HUMANA CHOICE-PPO MEDICARE xxxxxxxxx 2018-Present [address] [address] [place] [address] xxxxxxxxx [id number] Medicare [id number] Medicare MEDICARE PART A B [id number] Unknown [id number] [id number]2 Unknown [id number] 2.16.840.1.529285.3.579.2.462 Unknown [id number] 2.16.840.1.989646.3.579.2.462 Unknown [id number] 2.16.840.1.307349.3.579.2.462 Unknown [id number] 2.16.840.1.043848.3.579.2.462 Unknown [id number] 2.16.840.1.347373.3.579.2.462 Unknown [id number] 2.16.840.1.218066.3.579.2.462 Unknown [id number] 2.16.840.1.955119.3.579.2.462 Unknown [id number] 2.16.840.1.729804.3.579.2.462 Unknown [id number] 2.16.840.1.159048.3.579.2.462 Unknown [id number] 2.16.840.1.244874.3.579.2.462 Unknown [id number] 2.16.840.1.640344.3.579.2.462 Unknown [id number] 2.16.840.1.042241.3.579.2.462 Unknown [id number] 2.16.840.1.138184.3.579.2.462 Unknown [id number] 2.16.840.1.340804.3.579.2.462 Unknown [id number] 2.16.840.1.768132.3.579.2.462 Unknown [id number] 2.16.840.1.567357.3.579.2.462 Unknown [id number] 2.16.840.1.813208.3.579.2.462 Unknown [id number] 2.16.840.1.758275.3.579.2.462 Unknown [id number] 2.16.840.1.791372.3.579.2.462 Unknown [id number] 2.16.840.1.800187.3.579.2.462 Unknown [id number] 2.16.840.1.235087.3.579.2.462 Unknown [id number] 2.16.840.1.058578.3.579.2.462 Unknown [id number] 2.16.840.1.058640.3.579.2.462 Unknown [id number] 2.16.840.1.726362.3.579.2.462 Unknown [id number] 2.16.840.1.332176.3.579.2.462 Unknown [id number] 2.16.840.1.126285.3.579.2.462 Unknown [id number] 2.16.840.1.177395.3.579.2.462 Unknown [id number] 2.16.840.1.208955.3.579.2.462 Social History Date Type Detail Facility Start: 02-23-2019 End: 11-18-2022 Tobacco smoking status AZIS Unknown if ever smoked [facility] Sex Assigned At Not on file [place] Start: 01-15-2021 None [facility] Start: 01-15-2021 Homeless [facility] Start: 01-15-2021 Cigarettes [facility] Start: 1950 Sex Assigned At Female [facility] Start: 03-09-2024 End: 01-10-2025 Tobacco smoking status NHIS Current Light tobacco smoker [facility] Sex Female [facility] Medical Equipment Procedure Code Equipment Code Equipment Origin al Text Equipment Identifier Dates Test three times a day & as needed for symptoms of irregular blood glucose. [id number] Start: 03-03-2019 Goals Date Patient Goal Desired Activity /State Functional Status Date Assessment Result Facility 01-08-2025 Functional status Ambulates [facility] Work Phone: Mental Status Date Assessment Result Facility 01-08-2025 Cognitive function Voice/Name [facility] Work Phone: Clinical Notes 02-17-2019 to 2025 Note Date & Type Note Facility 2025 Progress note [facility] 01-10-2025 Progress note [facility] 01-08-2025 Consult note [facility] 01-08-2025 Discharge summary Note Date/Time January 08, 2025 2:20pm [facility] Medical Records Department [address] [place] [address] Discharge Summary 01/08/25 1357 MR#: [id number] Acct: [id number] Name: CHRISTY FRANCIS Rep #:[id number] : 1950 74 From: Rupali Lott DO PCP: Dr. Marielos Perla DO Status:ADM BRIAN Location: [place] [address] Providers Date of Admission: 01/07/25 Date of [...] who presented to the emergency department at [facility] on 01/07/2025 with a chief complaint of chest pain. She has an extensive cardiac history with previous CABG in 2019 at [facility] as well as PVD, HTN/HPL, and [...] taken for cardiac catheterization. Cardiac catheterization revealed FOLEY to LAD being patent, SVGto the PDA [...] % (Auto) Cancelled, Lymph % (Auto) Cancelled, [place] % (Auto) Cancelled, Eos % (Auto) Cancelled, [...] Drop Cells Cancelled, Ovalocytes Cancelled, Stomatocytes Cancelled, Jonhson-Kenesaw Bodies Cancelled, [place] Cells Cancelled, Bite Cells Cancelled, Crenated Cell [...] (Auto) 68.5, Lymph % (Auto) 13.2 L, [place] % (Auto) 10.8 H, Eos % (Auto) 6.3 H, Baso % (Auto) 0.7, Absolute Neuts (auto) 7.1, Absolute Lymphs (auto) 1.37, Nucleated RBC % 0 01/08/25 06:41: POC Glucose 189 H 01/08/25 11:17: POC Glucose 169 H Radiography Diagnostic Testing: Radiology Impression Chest CTA 01/07/25 13:24 IMPRESSION: No significant abnormality Reading Location: [facility] D/C Instructions Discharge Activity: Return to [...] Self Care Charges/Coding Visit Charges Inpatient E&M: 93861 Disch Hosp >30min 01/08/25 1420 <Electronically signed by Rupali Lott DO> Cosigner Signature (if applicable): CC: Dr. Jorge Anderson MD; Dr. Rupali Lott DO; Dr. Marielos Perla DO~ Signed [facility] Work Phone: 1(115) 342-770909-22-2025 Consult note [facility] Medical Records Department [address] [place] [address] Counseling Note - Pharmacy 01/08/25 1515 MR#: [id number] Acct: [id number] Name: CHRISTY FRANCIS Rep #:[id number] : 1950 74 From: Cecy Cheatham PCP: Dr. Marielos Perla DO Status:ADM BRIAN Y Location: [place] [address] Pharmacy [facility] Counseling Pharmacy Service has performed discharge [...] tabs 01/08/25 01/08/25 1516 Date _ Cecy Julianigner Signature (if applicable): Date CC: ~ Signed [facility]09-22-2025 Progress note Author Jorge Anderson [facility] Note Date/Time January 08, 2025 12:53pm [facility] Medical Records Department [address] [place] [address] Progress Note - Cardiology 01/08/25 1250 MR#: [id number] Acct: [id number] Name: CHRISTY FRANCIS Rep #:[id number] : 1950 74 From: Jorge Anderson MD PCP: Dr. Marielos Perla, DO Status:ADM BRIAN Location: [place] [address] Subjective Subjective Patient seen and evaluated. Underwent [...] L 01/07/25 12:32: Lymph % (Auto) Cancelled, [place] % (Auto) 9.1 01/07/25 12:32: [place] % (Auto) Cancelled, Eos % (Auto) 5.2 [...] Drop Cells Cancelled, Ovalocytes Cancelled, Stomatocytes Cancelled, Johnson-Kenesaw Bodies Cancelled, [place] Cells Cancelled, Bite Cells Cancelled, Crenated Cell [...] (Auto) 68.5, Lymph % (Auto) 13.2 L, [place] % (Auto) 10.8 H, Eos % (Auto) [...] L 01/07/25 12:32: Lymph % (Auto) Cancelled, [place] % (Auto) 9.1 01/07/25 12:32: [place] % (Auto) Cancelled, Eos % (Auto) 5.2 [...] (Auto) 68.5, Lymph % (Auto) 13.2 L, [place] % (Auto) 10.8 H, Eos % (Auto) 6.3 H, Baso % (Auto) 0.7, Absolute Neuts (auto) 7.1, Nucleated RBC % 0 Rhythm: EKG: ECHO: Stress Test: Cardiac Cath: PCI: CT Surgery: Holter monitor: EPS: PPM: CXR: Chest CT Scan: Radiography Diagnostic Testing: Radiology Impression Chest X-Ray 01/07/25 12:40 IMPRESSION: NO ACUTE FINDINGS. Reading Location: [facility] Chest CTA 01/07/25 13:24 IMPRESSION: No significant abnormality Reading Location: [facility] Physical Exam Const alert, oriented x3 [...] made. Addendum: Cardiac catheterization demonstrated the following: FOLEY to the LAD is patent. Saphenous vein [...] Cosigner Signature (if applicable): CC: ~ Signed [facility] Work Phone: 1(153) 187-149709-22-2025 Discharge summary [facility] Medical Records Department [address] [place] [address] Discharge Summary 01/08/25 3505 MR#: [id number] Acct: [id number] Name: CHRISTY FRANCIS Rep #:[id number] : 1950 74 From: Rupali Lott DO PCP: Dr. Marielos Perla DO Status:ADM BRIAN Location: [place] [address] Providers Date of Admission: 01/07/25 Date of [...] who presented to the emergency department at [facility] on 01/07/2025 with a chief complaint of chest pain. She has an extensive cardiac history with previous CABG in 2019 at [facility] as well as PVD, HTN/HPL, and [...] was taken for cardiac catheterization. Cardiaccatheterization revealed FOLEY to LAD being patent, SVGto the PDA [...] % (Auto) Cancelled, Lymph % (Auto) Cancelled, [place] % (Auto) Cancelled, Eos % (Auto) Cancelled, [...] Drop Cells Cancelled, Ovalocytes Cancelled, Stomatocytes Cancelled, Johnson-Kenesaw Bodies Cancelled, [place] Cells Cancelled, Bite Cells Cancelled, Crenated Cell [...] (Auto) 68.5, Lymph % (Auto) 13.2 L, [place] % (Auto) 10.8 H, Eos % (Auto) 6.3 H, Baso % (Auto) 0.7, Absolute Neuts (auto) 7.1, Absolute Lymphs (auto) 1.37, Nucleated RBC % 0 01/08/25 06:41: POC Glucose 189 H 01/08/25 11:17: POC Glucose 169 H Radiography Diagnostic Testing: Radiology Impression Chest CTA 01/07/25 13:24 IMPRESSION: No significant abnormality Reading [facility] Instructions Discharge Activity: Return to Normal [...] Self Care Charges/Coding Visit Charges Inpatient E&M: 15252 Disch Hosp >30min 01/08/25 1420 Cosigner Signature (if applicable): CC: Dr. Jorge Anderson MD; Dr. Rupali Lott DO; Dr. Marielos Perla DO~ Signed [facility]09-22-2025 Hospital Discharge instructionsAdditional Instructions 1. Please notice the changes in your blood pressure medicine with a decrease in your losartan from 25 mg to 12.5 mg and an increase in your metoprolol from 50 mg to 75 mg. I did this to make sure your blood pressure does not drop too low and hopefully help with your heart rate. Date of Discharge: 01/08/25[facility] Work Phone: 1(681) 335-685509-22-2025 [facility] Medical Records Department [address] [place] [address] Discharge Summary 01/08/25 1357 MR#: [id number] Acct: [id number] Name: CHRISTY FRANCIS Rep #: [id number] : 1950 74 From: Rupali Lott DO PCP: Dr. Marielos Perla DO Status:ADM BRIAN Location: [place] [address] Providers Date of Admission: 01/07/25 Date of [...] who presented to the emergency department at [facility] on 01/07/2025 with a chief complaint of chest pain. She has an extensive cardiac history with previous CABG in 2019 at [facility] as well as PVD, HTN/HPL, and [...] taken for cardiac catheterization. Cardiac catheterization revealed FOLEY to LAD being patent, SVG to the [...] twice daily and (more content not included)... [facility]09-22-2025 Progress note [facility] Medical Records Department [address] [place] [address] Progress Note - Cardiology 01/08/25 1250 MR#: [id number] Acct: [id number] Name: CHRISTY FRANCIS Rep #:[id number] : 1950 74 From: Jorge Anderson MD PCP: Dr. Marielos Perla, DO Status:ADM BRIAN Location: [place] [address] Subjective Subjective Patient seen and evaluated. Underwent [...] L 01/07/25 12:32: Lymph % (Auto) Cancelled, [place] % (Auto) 9.1 01/07/25 12:32: [place] % (Auto) Cancelled, Eos % (Auto) 5.2 [...] Drop Cells Cancelled, Ovalocytes Cancelled, Stomatocytes Cancelled, Johnson-Kenesaw Bodies Cancelled, [place] Cells Cancelled, Bite Cells Cancelled, Crenated Cell [...] (Auto) 68.5, Lymph % (Auto) 13.2 L, [place] % (Auto) 10.8 H, Eos % (Auto) [...] L 01/07/25 12:32: Lymph % (Auto) Cancelled, [place] % (Auto) 9.1 01/07/25 12:32: [place] % (Auto) Cancelled, Eos % (Auto) 5.2 [...] (Auto) 68.5, Lymph % (Auto) 13.2 L, [place] % (Auto) 10.8 H, Eos % (Auto) 6.3 H, Baso % (Auto) 0.7, Absolute Neuts (auto) 7.1, Nucleated RBC % 0 Rhythm: EKG: ECHO: Stress Test: Cardiac Cath: PCI: CT Surgery: Holter monitor: EPS: PPM: CXR: Chest CT Scan: Radiography Diagnostic Testing: Radiology Impression Chest X-Ray 01/07/25 12:40 IMPRESSION: NO ACUTE FINDINGS. Reading Location: [facility] Chest CTA 01/07/25 13:24 IMPRESSION: No significant abnormality Reading [facility] Physical Exam Const alert, oriented x3 and [...] made. Addendum: Cardiac catheterization demonstrated the following: FOLEY to the LAD is patent. Saphenous vein [...] Cosigner Signature (if applicable): CC: ~ Signed [facility]09-22-2025 Consult note Author Jorge Anderson [facility] Note Date/Time January 08, 2025 4:48pm [facility] Medical Records Department [address] [place] [address] Consultation - Cardiology 01/08/25 0652 MR#: [id number] Acct: [id number] Name: CHRISTY FRANCIS Rep #:[id number] : 1950 74 From: Jorge Anderson MD PCP: Dr. Marielos Perla, DO Status:DIS BRIAN Location: [place] [address] Assessment & Plan Assessment/Plan (1) Chest pain: [...] of coronary artery bypass surgery with a FOLEY to the LAD saphenous vein graft to [...] last catheterization in 2021 demonstrated the patent FOLEY to the LAD and the saphenous vein graft to the posterior descending artery. The graft to the obtuse marginal branch was occluded. [facility] Medical History Severe left ventricular systolic dysfunction (LVSD) Palpitations Right rotator cuff tear Trigger finger of both hands Carpal tunnel syndrome on both sides FHx: cholecystectomy History of left heart catheterization (LHC) (~06/03/21) Essential hypertension Mechanical loosening of prosthetic knee Atherosclerosis of [place] coronary artery of [place] heart without angina pectoris PAD (peripheral artery disease) HLD (hyperlipidemia) Type II diabetes mellitus Home Medications ?Medication ?Instructions ?Recorded ?Last Taken ?Type aspirin 81 mg tablet,delayed 81 mg PO DAILY heart heal 12/15/13 01/07/25 History release duloxetine 60 mg [...] L 01/07/25 12:32: Lymph % (Auto) Cancelled, [place] % (Auto) 9.1 01/07/25 12:32: [place] % (Auto) Cancelled, Eos % (Auto) 5.2 [...] Drop Cells Cancelled, Ovalocytes Cancelled, Stomatocytes Cancelled, Johnson-Kenesaw Bodies Cancelled, Johan Cells Cancelled, Bite Cells [...] (Auto) 68.5, Lymph % (Auto) 13.2 L, [place] % (Auto) 10.8 H, Eos % (Auto) [...] L 01/07/25 12:32: Lymph % (Auto) Cancelled, [place] % (Auto) 9.1 01/07/25 12:32: [place] % (Auto) Cancelled, Eos % (Auto) 5.2 [...] (Auto) 68.5, Lymph % (Auto) 13.2 L, [place] % (Auto) 10.8 H, Eos % (Auto) 6.3 H, Baso % (Auto) 0.7, Absolute Neuts (auto) 7.1, Nucleated RBC % 0 Rhythm: EKG: ECHO: Stress Test: Cardiac Cath: PCI: CT Surgery: Holter monitor: EPS: PPM: CXR: Chest CT Scan: Radiography Diagnostic Testing: Radiology Impression Chest X-Ray 01/07/25 12:40 IMPRESSION: NO ACUTE FINDINGS. Reading Location: [facility] Chest CTA 01/07/25 13:24 IMPRESSION: No significant abnormality Reading Location: [facility] LINK Risk Score for UA/STEMI Assesmment [...] Signature (if applicable): CC: Dr. Marielos Perla, ~ Signed [facility] Work Phone: 1(649) 906-759509-21-2025 History and physical note Author [facility] Note Date/Time January 07, 2025 5:21pm [facility] Medical Records Department [address] [place] [address] H&P Exam - Hospitalist 01/07/25 1436 MR#: [id number] Acct: [id number] Name: CHRISTY FRANCIS Rep #:[id number] : 1950 74 From: Maritza Suresh MD PCP: Dr. Marielos Perla, Status:ADM BRIAN Location: [place] [address] HPI - General General Date of Admission: [...] a history of CABG in 2019 at [facility] as well as peripheral artery disease, hyperlipidemia and type 2 diabetes mellitus. She also admitted to indigestion for several weeks prior to admission. She [...] managed for chest pain rule out ACS. [facility] Medical History Severe left ventricular systolic dysfunction (LVSD) Palpitations Right rotator cuff tear Trigger finger of both hands Carpal tunnel syndrome on both sides FHx: cholecystectomy History of left heart catheterization (LHC) (~06/03/21) Essential hypertension Mechanical loosening of prosthetic knee Atherosclerosis of [place] coronary artery of [place] heart without angina pectoris PAD (peripheral artery [...] (Auto) 70.0, Lymph % (Auto) 14.8 L, [place] % (Auto) 9.1, Eos % (Auto) 5.2 [...] 12:40 IMPRESSION: NO ACUTE FINDINGS. Reading Location: [facility] Assessment & Plan Assessment/Plan (1) Chest [...] was all done in presence of her yqiertsz-xp-iea Lynda Francis who is a nurse in the hospital. * Patient elects to be full code. * Total fcvr-kg-hgad time 16 minutes. Charges/Coding Visit Charges Inpatient E&M: 11512 Init Hosp L3 Procedures Hospitalists Procedures: 87032 Advncd Care Plan 30 Min 01/07/25 1721 <Electronically signed by Maritza Suresh MD> Cosigner Signature (if applicable): CC: Dr. Marielos Perla DO; Dr. Maritza Suresh MD~ Signed [facility] Work Phone: 1(194) 723-110009-21-2025 History and physical note [facility] Medical Records Department [address] [place] [address] H&P Exam - Hospitalist 01/07/25 1436 MR#: [id number] Acct: [id number] Name: CHRISTY FRANCIS Rep #:[id number] : 1950 74 From: Maritza Suresh MD PCP: Dr. Marielos Perla DO Status:ADM BRIAN Location: [place] [address] HPI - General General Date of Admission: [...] a history of CABG in 2019 at [facility] as well as peripheral artery disease,hyperlipidemia and type 2 diabetes mellitus. She also admitted to indigestion for several weeks prior to admission. She [...] managed for chest pain rule out ACS. [facility] Medical History Severe left ventricular systolic dysfunction (LVSD) Palpitations Right rotator cuff tear Trigger finger of both hands Carpal tunnel syndrome on both sides FHx: cholecystectomy History of left heart catheterization (LHC) (~06/03/21) Essential hypertension Mechanical loosening of prosthetic knee Atherosclerosis of [place] coronary artery of [place] heart without angina pectoris PAD (peripheral artery [...] (Auto) 70.0, Lymph % (Auto) 14.8 L, [place] % (Auto) 9.1, Eos % (Auto) 5.2 [...] 12:40 IMPRESSION: NO ACUTE FINDINGS. Reading Location: [facility] Assessment & Plan Assessment/Plan (1) Chest [...] was all done in presence of her cogopkil-it-vhk Lynda Francis who is a nurse in the hospital. * Patient elects to be full code. * Total xvvi-zw-rkey time 16 minutes. Charges/Coding Visit Charges Inpatient E&M: 65181 Init Hosp L3 Procedures Hospitalists Procedures: 70015 Advncd Care Plan 30 Min 01/07/25 1721 Cosigner Signature (if applicable): CC: Dr. Marielos Perla DO; Dr. Maritza Suresh MD~ Signed [facility]09-21-2025 Discharge summary Author Elena Bill [facility] Note Date/Time January 07, 2025 2:51pm [facility] Medical Records Department [address] [place] [address] Emergency Department Summary 01/07/25 MR#: [id number] Acct: [id number] Name: CHRISTY FRANCIS Rep #:[id number] : 1950 74 From: Elena Bill MD PCP: Dr. Marielos Perla DO Status:REG ER Location: ED HPI History of Present Illness Chief Complaint: Chest Pain Narrative Narrative: Patient is a 74-year-old female presenting to the emergency department for chestpain that started around 9 AM this morning. Patient has a past medical history of a CABG in 2019 at [facility], palpitations, hypertension, hyperlipidemia, type 2 diabetes [...] baby aspirin this morning prior to coming. [facility] Medical History Severe left ventricular systolic dysfunction (LVSD) Palpitations Right rotator cuff tear Trigger finger of both hands Carpal tunnel syndrome on both sides FHx: cholecystectomy History of left heart catheterization (LHC) (~06/03/21) Essential hypertension Mechanical loosening of prosthetic knee Atherosclerosis of [place] coronary artery of [place] heart without angina pectoris PAD (peripheral artery [...] .every week Unknown History subcutaneous pen injector (Mounjasonro) metoprolol tartrate 50 mg tablet 50 mg [...] lactate (From Allergy Shortness Verified 01/07/25 12:23 Vaibhavwin) of breath atorvastatin AdvReac Severe Severe Verified [...] (Auto) 70.0 Lymph % (Auto) 14.8 L [place] % (Auto) 9.1 Eos % (Auto) 5.2 [...] 12:40 IMPRESSION: NO ACUTE FINDINGS. Reading Location: [id number] Chest CTA 01/07/25 13:24 IMPRESSION: No significant abnormality [facility] Discharge Plan Triage Chief Complaint: Chest Pain [...] [Primary Care Provider, Family Practice] Print Language: Georgian What to do if you have Problems For any increased pain, shortness of breath, bleeding, nausea or vomiting, chestpain, or any unexpected problems, contact your Primary Care Provider. Call [facility] ([phone]) or report to the closest Emergency Room. Call 911 if necessary. 01/07/25 1451 <Electronically signed by Elena Bill MD> Cosigner Signature (if applicable): CC: Dr. Marielos Perla DO ~ Signed [facility] Work Phone: 1(696) 996-689209-21-2025 Discharge summary [facility] Medical Records Department [address] [facility] [place] [address] Emergency Department Summary 01/07/25 MR#: [id number] Acct: [id number] Name: CHRISTY FRANCIS Rep #:[id number] : 1950 74 From: Elena Bill MD PCP: Dr. Marielos Perla DO Status:REG ER Location: ED HPI History of Present Illness Chief Complaint: Chest Pain Narrative Narrative: Patient is a 74-year-old female presenting to the emergency department for chestpain that started around 9 AM this morning. Patient has a past medical history of a CABG in 2019 at [facility], palpitations, hypertension, hyperlipidemia, type 2 diabetes [...] baby aspirin this morning prior to coming. [facility] Medical History Severe left ventricular systolic dysfunction (LVSD) Palpitations Right rotator cuff tear Trigger finger of both hands Carpal tunnel syndrome on both sides FHx: cholecystectomy History of left heart catheterization (LHC) (~06/03/21) Essential hypertension Mechanical loosening of prosthetic knee Atherosclerosis of [place] coronary artery of [place] heart without angina pectoris PAD (peripheral artery [...] (Auto) 70.0 Lymph % (Auto) 14.8 L [place] % (Auto) 9.1 Eos % (Auto) 5.2 [...] 12:40 IMPRESSION: NO ACUTE FINDINGS. Reading Location: [id number] Chest CTA 01/07/25 13:24 IMPRESSION: No significant abnormality Reading [facility] Dis[facility] Plan Triage Chief Complaint: Chest Pain [...] [Primary Care Provider, Family Practice] Print Language: Georgian What to do if you have Problems For any increased pain, shortness of breath, bleeding, nausea or vomiting, chestpain, or any unexpected problems, contact your Primary Care Provider. Call [facility] ([phone]) or report tothe closest Emergency Room. Call 911 if necessary. 01/07/25 1451 Cosigner Signature (if applicable): CC: Dr. Marielos Perla DO ~ Signed [facility]09-21-2025 Radiology Diagnostic study note [facility] Imaging Services [address], [place] [address] CTA Chest W/WO Contrast MR#: [id number] Acct: [id number] Name: CHRISTY FRANCIS Rep #: [id number] : 1950 F 74 From: Michael Ignacio MD PCP: Dr. Marielos Perla DO Status: REG ER Study:CTA Chest W/WO Contrast Date of Exam: 01/07/25 Exam# [id number] Ordering Dr: Tomasz Bill MD PROCEDURE: CTA [...] Contrast IMPRESSION: No significant abnormality Reading Location: [facility] CC: Dr. Elena Bill MD; Dr. Marielos Perla DO ~ Scarf Gluer: Signed [facility]09-21-2025 Radiology Diagnostic study note [facility] Imaging Services [address] [place], [place] [id number] Chest PA and Lateral MR#: [id number] Acct: [id number] Name: CHRISTY FRANCIS Rep #: [id number] : 1950 74 From: Suhail Haines MD PCP: Dr. Marielos Perla DO Status: REG ER Study:Chest PA and Lateral Date of Exam: 01/07/25 Exam# [id number] Ordering Dr: Tomasz Bill MD PROCEDURE: CHEST [...] Lateral IMPRESSION: NO ACUTE FINDINGS. Reading Location: [facility] CC: Dr. Elena Bill MD; Dr. Marielos Perla DO ~ Scarf Gluer: Signed [facility]09-06-2025 Radiology Diagnostic study note [facility] Imaging Services [address] [place], [place] [id number] Lumbar Spine 2 or 3 Views MR#: [id number] Acct: [id number] Name: CHRISTY FRANCIS Rep #: [id number] : 1950 F 74 From: Pamela Bullock MD PCP: Dr. Marielos Perla DO Status: REG CLI Study:Lumbar Spine 2 or 3 Views Date of Exam: 12/22/24 Exam# [id number] Ordering Dr: Rio Young ison PA EXAM: XR Lumbosacral Spine, 2 or [...] changes lumbar spine as described. Reading Location: [id number] CC: SKYLER Watson; Dr. Marielos Perla DO ~ Scarf Gluer: Signed [facility]08-13-2025 Radiology Diagnostic study note [facility] Imaging Services [address] [place], [place] [address] Pelvic w/ Transvaginal MR#: [id number] Acct: [id number] Name: CHRISTY FRANCIS Rep #: [id number] : 1950 F 74 From: Randy Reese MD PCP: Dr. Marielos Perla DO Status: REG CLI Study:Pelvic w/ Transvaginal Date of Exam: 11/29/24 Exam# [id number] Ordering Dr: Tresa Perla sa, DO PROCEDURE: [...] Endometrial thickening. Clinical correlation recommended. Reading Location: [id number] CC: Dr. Marielos Perla, DO ~ Scarf Gluer: Signed [facility]07-17-2025 Evaluation note* Diagnosis Onset Date Resolution Status Admit Date Severe left ventricular systolic dysfunction (LVSD) acute November 02, 2024 10:11am Essential hypertension chronic ly 2024 10:11am History of coronary artery bypass graft x February, chronic November 02, 2024 10:11am HLD (hyperlipidemia) chronic November 02, 2024 10:11am PAD (peripheral artery disease) chronic November 02, 2024 10:11am [facility] Work Phone: 1([phone]) 791-724707-17-2025 Evaluation note* Diagnosis Onset Date Resolution Status [...] (peripheral artery disease) chronic December 12 10:37am [facility] Work Phone: 1(578) 306-138007-17-2025 Evaluation note* Diagnosis Onset Date Resolution Status Admit Date Severe left ventricular systolic dysfunction (LVSD) acute November 02, 2024 10:11am Essential hypertension inactive ly 2024 10:11am History of coronary artery bypass graft x February, inactive November 02, 2024 10:11am HLD (hyperlipidemia) inactive November 02, 2024 10:11am PAD (peripheral artery disease) inactive Elizabeth 17th, 2025 10:11am Lower extremity neuropathy acute December 12, 2024 10:37am PAD (peripheral artery disease) inactive December 12 10:37am Lower extremity neuropathy acute January 03, 2025 9:20am PAD (peripheral artery disease) inactive January 03, 2025 9:20am Chest pain resolved December 3:00pm Essential hypertension inactive Se pt2024 3:00pm History of coronary artery bypass graft x February, inactive January 07, 2025 3:00pm HLD (hyperlipidemia) inactive Dec 3:00pm PAD (peripheral artery disease) inactive January 07, 2025 3:00pm Thickened endometrium acute Sep 2024 10:45am [facility] Work Phone: [phone] 958-721407-17-2025 Evaluation note* Diagnosis Onset Date Resolution Status Admit Date Severe left ventricular systolic dysfunction (LVSD) acute November 02, 2024 10:11am Essential hypertension inactive 2024 10:11am History of coronary artery bypass graft x February, inactive November 02, 2024 10:11am HLD [...] of coronary artery bypass graft x February, inactive January 07, 2025 3:00pm HLD (hyperlipidemia) inactive Dec 3:00pm PAD (peripheral artery disease) inactive January 07, 2025 3:00pm Thickened endometrium acute Sep 2024 10:45am Degenerative disc disease (DDD) of lumbar region with discogenic back pain acute January 9:21am Lumbar stenosis with neurogenic claudication acute January 18, 2025 9:21am Spondylolisthesis at L4-L5 level acute January 18 9:21am Cardiomyopathy acute January 302024 8:50am Left ventricular hypertrophy acute 2025 8:50am Atherosclerosis of [place] coronary artery of [place] heart without angina chronic January 8:50am [facility] Work Phone: 1(592) 666-671506-02-2025 Radiology Diagnostic study note [facility] Imaging Services [address] [place], [place] [address] L/S Spine Min 4 Views MR#: [id number] Acct: [id number] Name: CHRISTY FRANCIS Rep #: [id number] : 1950 F 74 From: Adrianna Serrano MD PCP: Dr. Marielos Perla DO Status: REG CLI Study:L/S Spine Min 4 Views Date of Exam: 09/18/24 Exam# [id number] Ordering Dr: Ra javier Mckeon PUMP TECHNICIAN-C PROCEDURE: L/S SPINE MIN 4 VIEWS 09/18/2024 REASON FOR EXAM: PAIN, SCIATICA TECHNIQUE: Four views of the lumbar spine COMPARISON: None FINDINGS: There are 5 pay-tgq-nefuhiv lumbar-type vertebral bodies. The pars are not [...] is likely degenerative. Reading Location: [facility] CC: PUMP TECHNICIAN-C Rand Mckeon; Dr. Marielos Perla DO ~ Scarf Gluer: Signed [facility]02-17-2025 Evaluation note* Diagnosis Onset Date Resolution Status Admit Date Essential hypertension chronic Fe bruary 2024 10:41am History of coronary artery bypass graft x 3 February, chronic June 05, 2024 10:41am HLD (hyperlipidemia) chronic Febr uary 2024 10:41am PAD (peripheral artery disease) chronic June 05, 2 025 10:41am Shortness of breath chronic Febru kristine 2024 10:41am [facility] Work Phone: 1([phone]) 449-624011-01-2019 Evaluation note* Diagnosis Onset Date Resolution Status Chest pain acute Essential hypertension acute History of coronary artery bypass graft x February, acute HLD (hyperlipidemia) chronic PAD (peripheral artery disease) chronic [facility] Work Phone: 1([phone]) 606-102211-01-2019 Evaluation note* Diagnosis Onset Date Resolution Status Chest pain acute Essential hypertension acute History of coronary artery bypass graft x February, acute HLD (hyperlipidemia) chronic PAD (peripheral artery disease) chronic Essential hypertension acute History of coronary artery bypass graft x February, acute Palpitations acute HLD (hyperlipidemia) chronic PAD (peripheral artery disease) chronic [facility] Work Phone: 1(310) 472-311911-01-2019 Evaluation note* Diagnosis Onset Date Resolution Status Admit Date Severe left ventricular systolic dysfunction (LVSD) acute November 02, 2024 10:11am Essential hypertension chronic Ju ly 2024 10:11am History of coronary artery bypass graft x February, chronic November 02, 2024 10:11am HLD (hyperlipidemia) chronic November 02, 2024 10:11am PAD (peripheral artery disease) chronic November 02, 2024 10:11am [facility] [employer] Work Phone: Consult note Author Jorge Anderson [facility] Note Date/Time January 08, 2025 4:48pm [facility] Medical Records Department [address] [place] [address] Consultation - Cardiology 01/08/25 0652 MR#: [id number] Acct: [id number] Name: CHRISTY FRANCIS Rep #:[id number] : 1950 74 From: Jorge Anderson MD PCP: Dr. Marielos Perla, DO Status:DIS BRIAN Location: [place] [address] Assessment & Plan Assessment/Plan (1) Chest pain: [...] of coronary artery bypass surgery with a FOLEY to the LAD saphenous vein graft to [...] last catheterization in 2021 demonstrated the patent FOLEY to the LAD and the saphenous vein graft to the posterior descending artery. The graft to the obtuse marginal branch was occluded. [facility] Medical History Severe left ventricular systolic dysfunction (LVSD) Palpitations Right rotator cuff tear Trigger finger of both hands Carpal tunnel syndrome on both sides FHx: cholecystectomy History of left heart catheterization (LHC) (~06/03/21) Essential hypertension Mechanical loosening of prosthetic knee Atherosclerosis of [place] coronary artery of [place] heart without angina pectoris PAD (peripheral artery [...] L 01/07/25 12:32: Lymph % (Auto) Cancelled, [place] % (Auto) 9.1 01/07/25 12:32: [place] % (Auto) Cancelled, Eos % (Auto) 5.2 [...] Drop Cells Cancelled, Ovalocytes Cancelled, Stomatocytes Cancelled, Johnson-Kenes[place] Bodies Cancelled, Johan Cells Cancelled, Bite Cells [...] (Auto) 68.5, Lymph % (Auto) 13.2 L, [place] % (Auto) 10.8 H, Eos % (Auto) [...] L 01/07/25 12:32: Lymph % (Auto) Cancelled, [place] % (Auto) 9.1 01/07/25 12:32: [place] % (Auto) Cancelled, Eos % (Auto) 5.2 [...] (Auto) 68.5, Lymph % (Auto) 13.2 L, [place] % (Auto) 10.8 H, Eos % (Auto) 6.3 H, Baso % (Auto) 0.7, Absolute Neuts (auto) 7.1, Nucleated RBC % 0 Rhythm: EKG: ECHO: Stress Test: Cardiac Cath: PCI: CT Surgery: Holter monitor: EPS: PPM: CXR: Chest CT Scan: Radiography Diagnostic Testing: Radiology Impression Chest X-Ray 01/07/25 12:40 IMPRESSION: NO ACUTE FINDINGS. Reading Location: [facility] Chest CTA 01/07/25 13:24 IMPRESSION: No significant abnormality Reading Location: [facility] LINK Risk Score for UA/STEMI Assesmment [...] Signature (if applicable): CC: Dr. Marielos Perla, ~ Signed [facility] Work Phone: Consult note Author Cecy Cheatham [facility] Note Date/Time January 08, 2025 3:16pm [facility] Medical Records Department [address] [place] [address] Counseling Note - Pharmacy 01/08/25 5635 MR#: [id number] Acct: [id number] Name: CHRISTY FRANCIS Rep #:[id number] : 1950 74 From: Cecy Cheatham PCP: Dr. Marielos Perla DO Status:ADM BRIAN Y Location: [place] [id number] DC Med Rec Counseling Pharmacy Service has performed discharge medication [...] Signature (if applicable): Date CC: ~ Signed [facility] Work Phone: Discharge summary Author Rupali Lott [facility] Note Date/Time January 08, 2025 2:20pm [facility] Medical Records Department [address] [facility] [address] Discharge Summary 01/08/25 1357 MR#: [id number] Acct: [id number] Name: CHRISTY FRANCIS Rep #:[id number] : 1950 74 From: Rupali Lott DO PCP: Dr. Marielos Perla DO Status:ADM BRIAN Location: [place] [address] Providers Date of Admission: 01/07/25 Date of [...] who presented to the emergency department at [facility] on 01/07/2025 with a chief complaint of chest pain. She has an extensive cardiac history with previous CABG in 2019 at [facility] as well as PVD, HTN/HPL, and [...] taken for cardiac catheterization. Cardiac catheterization revealed FOLEY to LAD being patent, SVGto the PDA [...] % (Auto) Cancelled, Lymph % (Auto) Cancelled, [place] % (Auto) Cancelled, Eos % (Auto) Cancelled, [...] Drop Cells Cancelled, Ovalocytes Cancelled, Stomatocytes Cancelled, Johnson-Kenes[place] Bodies Cancelled, Johan Cells Cancelled, Bite Cells [...] (Auto) 68.5, Lymph % (Auto) 13.2 L, [place] % (Auto) 10.8 H, Eos % (Auto) 6.3 H, Baso % (Auto) 0.7, Absolute Neuts (auto) 7.1, Absolute Lymphs (auto) 1.37, Nucleated RBC % 0 01/08/25 06:41: POC Glucose 189 H 01/08/25 11:17: POC Glucose 169 H Radiography Diagnostic Testing: Radiology Impression Chest CTA 01/07/25 13:24 IMPRESSION: No significant abnormality Reading [facility] Instructions Discharge Activity: Return to Normal [...] Self Care Charges/Coding Visit Charges Inpatient E&M: 65461 Disch Hosp >30min 01/08/25 1420 <Electronically signed by Rupali Lott DO> Cosigner Signature (if applicable): CC: Dr. Jorge Anderson MD; Dr. Rupali Lott DO; Dr. Marielos Perla DO~ Signed [facility] Work Phone: Evaluation noteNo assessment information available [facility] Work Phone: Evaluation note* Diagnosis Onset Date Resolution Status Right rotator cuff tear acut e [facility] Work Phone: History and physical note Author Maritza Suresh [facility] Note Date/Time January 07, 2025 5:21pm [facility] Medical Records Department [address] [place] [address] H&P Exam - Hospitalist 01/07/25 1436 MR#: [id number] Acct: [id number] Name: CHRISTY FRANCIS Rep #:[id number] : 1950 74 From: Maritza Suresh MD PCP: Dr. Marielos Perla, DO Status:ADM BRIAN Location: [place] [address] HPI - General General Date of Admission: [...] a history of CABG in 2019 at [facility] as well as peripheral artery disease, hyperlipidemia and type 2 diabetes mellitus. She also admitted to [facility] for several weeks prior to admission. She [...] managed for chest pain rule out ACS. [facility] Medical History Severe left ventricular systolic dysfunction (LVSD) Palpitations Right rotator cuff tear Trigger finger of both hands Carpal tunnel syndrome on both sides FHx: cholecystectomy History of left heart catheterization (LHC) (~06/03/21) Essential hypertension Mechanical loosening of prosthetic knee Atherosclerosis of [place] coronary artery of [place] heart without angina pectoris PAD (peripheral artery disease) HLD (hyperlipidemia) Type II diabetes mellitus Home Medications ?Medication ?Instructions ?Recorded ?Last Taken ?Type aspirin 81 mg tablet,delayed 81 mg PO DAILY heart heal 08/29/14 02/15/22 History release duloxetine 60 mg capsule,delayed 60 [...] (Auto) 70.0, Lymph % (Auto) 14.8 L, [place] % (Auto) 9.1, Eos % (Auto) 5.2 [...] 12:40 IMPRESSION: NO ACUTE FINDINGS. Reading Location: [facility] Assessment & Plan Assessment/Plan (1) Chest [...] was all done in presence of her fnrpqupa-rc-haj Lynda Francis who is a nurse in the hospital. * Patient elects to be full code. * Total eudh-mo-rkmk time 16 minutes. Charges/Coding Visit Charges Inpatient E&M: 12194 Init Hosp L3 Procedures Hospitalists Procedures: 99363 Advncd Care Plan 30 Min 01/07/25 1721 <Electronically signed by Maritza Suresh MD> Cosigner Signature (if applicable): CC: Dr. Marielos Perla DO; Dr. Maritza Suresh MD~ Signed [facility] Work Phone: Hospital Discharge instructions Additional Instructions X-rays of your shoulder knee showed no broken bones. Rest, ice, and use the Percocet as needed. After that you can take Tylenol or Motrin. If symptoms are not improving in 1 week please see your primary care doctor for reevaluation.[facility] Work Phone: Hospital Discharge instructionsAdditional Instructions 1. [...] with your heart rate. [facility]: [facility] note Author Jorge Anderson [facility] Note Date/Time January 08, 2025 12:53pm [facility] Medical Records Department [address] [place] [address] Progress Note - Cardiology 01/08/25 1250 MR#: [id number] Acct: [id number] Name: CHRISTY FRANCIS Rep #:[id number] : 1950 74 From: Jorge Anderson MD PCP: Dr. Marielos Perla, DO Status:ADM BRIAN Location: [place] [address] Subjective Subjective Patient seen and evaluated. Underwent [...] L 01/07/25 12:32: Lymph % (Auto) Cancelled, [place] % (Auto) 9.1 01/07/25 12:32: [place] % (Auto) Cancelled, Eos % (Auto) 5.2 [...] Drop Cells Cancelled, Ovalocytes Cancelled, Stomatocytes Cancelled, Johnson-Kenesaw Bodies Cancelled, [place] Cells Cancelled, Bite Cells Cancelled, Crenated Cell [...] (Auto) 68.5, Lymph % (Auto) 13.2 L, [place] % (Auto) 10.8 H, Eos % (Auto) [...] L 01/07/25 12:32: Lymph % (Auto) Cancelled, [place] % (Auto) 9.1 01/07/25 12:32: [place] % (Auto) Cancelled, Eos % (Auto) 5.2 [...] (Auto) 68.5, Lymph % (Auto) 13.2 L, [place] % (Auto) 10.8 H, Eos % (Auto) 6.3 H, Baso % (Auto) 0.7, Absolute Neuts (auto) 7.1, Nucleated RBC % 0 Rhythm: EKG: ECHO: Stress Test: Cardiac Cath: PCI: CT Surgery: Holter monitor: EPS: PPM: CXR: Chest CT Scan: Radiography Diagnostic Testing: Radiology Impression Chest X-Ray 01/07/25 12:40 IMPRESSION: NO ACUTE FINDINGS. Reading Location: [facility] Chest CTA 01/07/25 13:24 IMPRESSION: No significant abnormality Reading Location: [facility] Physical Exam Const alert, oriented x3 [...] made. Addendum: Cardiac catheterization demonstrated the following: FOLEY to the LAD is patent. Saphenous vein [...] Cosigner Signature (if applicable): CC: ~ Signed [facility] Work Phone: Progress note Author Lamar Olivera [facility] Note Date/Time January 10, 2025 11:16am [facility] [address], [address] [place] [address] OFFICE VISIT Date of Service: 01/10/25 MR#: [id number] Acct: [id number] Name: CHRISTY FRANCIS Rep #: [id number] : 1950 Provider: JOHNATHON Olivera Age/Sex: 74/F [place] [facility]: Signed Intake Vital Signs 11/02/24 10:17 01/07/25 16:04 01/10/25 10:46 Height 5 ft 2 in 5 ft 2 in 5 ft 2 in Weight: 167 lb BMI 30.5 BP 125/74 H Blood Pressure Location Rt brachial Position Sitting Pulse 98 Pulse Source Monitor Intake Visit Reasons: 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 [email or web address]. Smoking Status: Light Smoker (<10/day) alcohol intake: [...] Bth Weight Gen [facility] FOB [birth year] Germán [birth year] Jean-Claude [facility] EMB ([place]) Details: CHRISTY FRANCIS is a 74 year [...] Thickened endometrium R93.89 CPT Codes Endometrial Biopsy (54142) Assessment and Plan Assessment and Plan (1) Thickened endometrium: Status: Acute Comment: 6.6mm. no vag bleeding. EMB pending Orders: Orders Endometrial Biopsy Today SCRN MAMM (CAD)W/LAVON BILAT Today Plan Reviewed S&S infection Call pathology If normal than can just monitor Mammogram ordered 01/10/25 1116 <Electronically signed by Lamar juárez PUMP TECHNICIAN PUMP TECHNICIAN-C> Date _ Lamar Olivera PUMP TECHNICIAN PUMP TECHNICIAN-C Cosigner Signature: Date (if applicable) CC: Dr. Marielos Perla, DO ~ [facility] Work Phone: Progress note Author Akin Jauregui [facility] Note Date/Time 2025 9 :51am [facility] [place] [facility] [address] [place] [address] OFFICE VISIT Date of Service: 01/30/25 MR#: [id number] Acct: [id number] Name: CHRISTY FRANCIS Rep #: [id number] : 1950 Provider: SKYLER Pritchett Age/Sex: 75/F [place] [facility] Status: Signed HPI HPI History of Present Illness Details: Christy Francis is a 75-year-old female who presents to office today for hospital follow-up. She has a history of coronary artery disease status post CABG receiving FOLEY to her LAD, SVG to the OM 2 and SVG to RCA/PDA in February 2019 at [facility], ischemic mediated cardiomyopathy, hyperlipidemia, hypertension and peripheral arterial occlusive disease following with vascular surgery, Dr. Torres. 01/07/2025 she presented to [facility] ED with complaints of chest pain. She had been experiencing multiple weeks of indigestion prior to this. Troponin was elevated at 27 on arrival. EKG and chest CT in the emergency department demonstrated no acute findings. She was started on a heparin drip and admitted for ACS rule out and catheterization. She underwent cardiac catheterization 01/08/2025 that demonstrated patent foley to the LAD and patent SVG to the posterior descending artery, occluded SVG to the second OM which was previously known. Ejection fraction was reported at 60%. Medical therapy was recommended. While admitted, the hospitalist increased metoprolol to 75mg BID, decreased Losartan to 12.5 BID, and started her on ranolazine 500mg BID for angina. Today she reports significant symptom improvement with the Ranolazine. She states that she continued to have minor chest pain for the first few days out ofthe hospital, but they dissipated after consistent Ranolazine use. Home blood pressure has been stable around 120/80 with the new medication adjustments. She reports one isolated episode of lightheadedness that occurred in the grocery store 2.5 weeks ago requiring her to rest and stabilize herself on her shopping cart. She states this self-resolved and she felt fatigued for the rest of the day, but did not reoccur. She denies chest pain, palpitations, or pedal edema. She reports quitting smoking 1.5 weeks ago and has been doing well without nicotine. 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 Accompanied by: Self Is patient in pain?: No Allergies cefazolin Allergy (Verified 01/30/25 09:02) Shortness of breath codeine Allergy (Verified 01/30/25 09:02) Shortness of breath morphine Allergy (Verified 01/30/25 09:02) Other naloxone (Naloxone) Allergy (Verified 01/30/25 09:02) Shortness of breath pentazocine Allergy (Verified 01/30/25 09:02) Shortness of breath pentazocine lactate (From Talwin) Allergy (Verified 01/30/25 09:02) Shortness of breath atorvastatin Adverse Reaction (Severe, Verified 01/30/25 09:02) Severe myalgias acetaminophen (From Tylenol) Adverse Reaction (Verified 01/30/25 09:02) Nausea Medications ?Medication ?Instructions ?Recorded ?Confirmed ?Type aspirin 81 mg tablet,delayed 81 mg PO DAILY heart heal th 12/15/13 01/30/25 History release duloxetine 60 mg capsule,delayed 60 mg PO DAILY mental health 08/20/22 01/30/25 History release allopurinol 300 mg tablet 300 mg PO BID gout 11/05/23 01/30/25 History cilostazol 100 mg tablet 100 mg PO BID anti platelet 11/05/23 01/30/25 History rosuvastatin 10 mg tablet See Rx Instructions .Route 1 01/30/25 Rx .COMPLEX cholesterol #90 TABLETS furosemide 40 mg tablet 40 mg PO DAILY diuretic #90 TABLETS 06/19/24 01/30/25 Rx glimepiride 4 mg tablet 4 mg PO BID diabetes 5 01/30/25 History insulin aspar prt-insulin aspart 20 unit subcut QAM di abetes 11/02/24 01/30/25 History 100 unit/mL (70-30) subcutaneous soln (Novolog Mix 70-30 U-100 Insuln) nitroglycerin 0.4 mg sublingual 0.4 mg sublingual Q5-1 5M PRN chest 11/02/24 01/30/25 Rx tablet pain #25 tabs tirzepatide 10 mg/0.5 mL 10 mg subcut .every week anabela betes 11/02/24 01/30/25 History subcutaneous pen injector (May) isosorbide mononitrate 60 mg 60 mg PO BID heart 01/30/25 History tablet,extended release 24 hr omeprazole 20 mg capsule,delayed 20 mg PO DAILY reflux 01/07/25 01/30/25 History release losartan 25 mg tablet 12.5 mg (1/2 x 25 mg) PO GAYE LY #15 01/08/25 01/30/25 Rx tabs metoprolol tartrate 50 mg tablet 75 mg (1.5 x 50 mg) P O BID blood 01/08/25 01/30/25 Rx pressure #180 tabs ranolazine 500 mg tablet,extended 500 mg PO BID #180 t abs 01/30/25 01/30/25 Rx release,12 hr Ejection fraction %: 60 Have you fallen in the past year?: No PFSH Medical History Severe left ventricular systolic dysfunction (LVSD) Palpitations Right rotator cuff tear Trigger finger of both hands Carpal tunnel syndrome on both sides FHx: cholecystectomy History of left heart catheterization (LHC) (~06/03/21) Essential hypertension Mechanical loosening of prosthetic knee Atherosclerosis of [place] coronary artery of [place] heart without angina pectoris PAD (peripheral artery disease) HLD (hyperlipidemia) Type II diabetes mellitus Surgical History History of cholecystectomy History of coronary artery bypass graft x 3 (~02/27/19) History of prosthetic unicompartmental arthroplasty of left knee Family History Mother Heart disease Social History current occupational status: retired current occupation: Retired. [employer]. Smoking Status: Light Smoker (<10/day) alcohol intake: current alcohol intake frequency: holidays/special occasions only substance use type: does not use caffeine: Yes Type: coffee Number of servings: 3 do you feel safe at home: Yes additional social history: . ROS Const Const: Positive for headache(s) (2 times a week); Negative for fatigue or weakness Eyes Eyes: Negative for change in vision ENT ENT: Positive for headache(s) (2 times a week); Negative for dizziness, Nosebleed/epistaxis or balance problems Cardio Chest Pain: No Palpitations: No Edema: None Resp Respiratory: Negative for SOB with activity, SOB at rest or SOB orthopnea\SOB lying down GI GI: Negative nausea, vomiting, heartburn or bright, red blood in stools : Negative for hematuria Musc Musc: Negative for balance problems Neuro Neuro: Positive for headache(s) (2 times a week); Negative for dizziness, lightheadedness, syncope or weakness Endo Endo: Negative for fatigue Cardiology Exam Const Appearance: cooperative, comfortable, no acute distress and well developed; Negative diaphoretic or ill appearing Nutritional Appearance: obese Orientation: alert and oriented x3 Ambulating without assistive device Head Head: normal to inspection, normocephalic and atraumatic Ears: hearing grossly normal bilaterally Nose: external nose normal and Negative epistaxis Face and Sinus: face symmetric Eyes General: appearance normal, both eyes and all related structures Eyelids: eyelids normal Conjunctivae: conjunctivae normal; Negative scleral icterus EOM: EOM intact bilaterally Neck Neck: no JVD Carotids: normal carotid upstroke; Negative bruit Neck Mass: Negative Neck mass Chest Chest inspection: normal respiratory effort; Negative respiratory distress, audible wheezes or tachypneic Auscultation: Bilateral: Rhonchi (bilateral lung base) Cardio Rate: regular rate Rhythm: regular rhythm Heart sounds: S1 normal and S2 normal; Negative rub, gallop or murmur GI GI: obese Neuro General: patient alert, patient awake, patient oriented x3 and moves all extremities Skin Skin: no rashes or lesions noted Extremities Pulses: Normal: Right Posterior Tibial Pulse, Left Posterior Tibial Pulse, RightRadial Pulse and Left Radial Pulse Lower Extremity Edema: None: Bilateral Psych Psychological: normal affect Supplemental Info Supplemental Information Left heart catheterization 01/08/2025 CONCLUSIONS Ejection fraction 60% Coronary artery disease with patent FOLEY to the LAD, saphenous vein graft to posterior descending artery, diffusely diseased circumflex artery with obtuse marginal to the circumflex artery territory occluded. This was previously known. CORONARY ANGIOGRAPHY 01/08/2025 DOMINANCE: Right Dominant LEFT HEART ASSESSMENT Left Ventricular Ejection Fraction: by Echo 60 % Normal Left Ventricular systolic function LEFT MAIN: Ostial 40% [...] stenosis. RIGHT CORONARY ARTERY: is occluded GRAFTS: FOLEY graft to the Mid LAD is patent Saphenous Vein graft to the RPDA is patent Saphenous Vein graft to the 2nd OM is totally occluded COLLATERAL FLOW: Collateral flow from Left to Right Echocardiogram 02/21/2024 Interpretation Summary Normal LV size. Severe concentric left ventricular hypertrophy. The left ventricular ejection fraction is 60 %. Stage 1 diastolic dysfunction. Stress Test 02/21/2024 Conclusion: Normal pharmacologic myocardial perfusion stress test. Preserved ejection fraction. Chest CTA 02/19/2024 IMPRESSION: Normal CTA chest examination, without a demonstrated pulmonary embolism or arterial dissection. No acute pulmonary findings. Multinodular goiter. If not previously evaluated, consider routine follow-up thyroid ultrasound. Ankle Brachial Index 10/01/2023 Interpretation Summary The right resting ankle-brachial index appears mildly abnormal. The left restingankle-brachial index appears moderately abnormal. Assessment and Plan Assessment and Plan (1) Atherosclerosis of [place] coronary artery of [place] heart without angina pectoris: Status: Chronic Comment: CABG x3 with FOLEY to LAD, SVG to OM 2, and SVG to PDA of RCA on 02/27/[address] Taylor at [facility]; Plan: Catheterization from 01/08/2025 shows stable coronary artery plaque. Continue medical management including antiplatelet, statin, nitrate,and beta jessica and monitoring symptoms. We will refill ranolazine today. Ordered lipid level and liver panel to evaluate current cholesterol management on atorvastatin. (2) Cardiomyopathy: Status: Acute Plan: Ejection fraction has improved to 60% since left ventricular systolic dysfunction was found on 02/26/2024 with EF of 45%. She is now due for surveillance echocardiogram. Would like to have this performed despite recent catheterization for in depth observation of left ventricular hypertrophy. Continue medical management including furosemide, losartan, metoprolol. (3) Left ventricular hypertrophy: Status: Acute Plan: LVH noted on 02/26/2024 echocardiogram. Ejection fraction has improved to 60% with medical management. Perform surveillence echocardiogram at this time to monitor current hypertrophy. Continue medical management. Orders: Orders Lipid Profile 01/30/25 I25.10 - Atherosclerotic heart disease of [place] coronary artery without angina pectoris Liver Profile 01/30/25 I25.10 - Atherosclerotic heart disease of [place] coronary artery without angina pectoris Medications: Refilled ranolazine ER 500 mg PO BID 180 tabs 3RF Plan 1. Will still plan for evaluation via echo to assess LVH 2. Continue Ranolazine 3. Updated lipid/liver labs Patient will follow-up in 3 months or sooner, if needed. Thank you for allowing me to participate in the care of your patient. Please don't hesitate to call if any issues arise. This note was generated using a voice recognition system and there may be incorrect words, spelling, or punctuation that were not noted when reviewing theoffice note prior to saving. Portions of this documentation were copied and pasted from previous office visitnotes to provide a cohesive continuity of the history. The note has been reviewed, edited, and updated, as necessary. Plan Details Follow Up: 3 Months (MM/SRD) Coding Level of Care Code Off vis,est,level 4 Diagnoses Atherosclerosis of [place] coronary artery of [place] heart without angina pectoris I25.10 Cardiomyopathy I42.9 Left ventricular hypertrophy I51.7 Coding Level of Care Code Off vis,est,level 4 Diagnoses Atherosclerosis of [place] coronary artery of [place] heart without angina pectoris I25.10 Cardiomyopathy I42.9 Left ventricular hypertrophy I51.7 Clinical Quality Measures Falls Risk Screening/Assistive Devices Have you fallen in the past year?: No Cardiac Ejection fraction %: 60 02/03/25 0757 <Electronically signed by Akin HOLLAND> Date _ Akin HOLLAND 02/03/25 0808<Electronically signed by Jorge Anderson MD> Cosigner Signature: Date (if applicable) Jorge Anderson MD CC: Dr. Marielos Perla, DO ~ [facility] Work Phone: Reason for referral (narrative)No reason for referral information availableWPaulding County Hospital Work Phone: Discharge Instructions * Discharge Instr - Lab* Yamilet Nogueira, RN - 03/02/2019 3:13 PM EST Your physician has ordered skilled home care services for you. Your home care will be provided by: [facility] [phone] * Additional Instructions* Lukas Moise, PAPER CONE GRADER - PANEL COVERER - 03/03/2019 When to call the surgeon: If any symptoms concern you, call us: -Dr. Taylor/Dr. Medina's office -Phone number [phone] -[address] Notify us if the following occur: [...] Everywhere. * Coronary Artery Bypass Graft: Post-op (Georgian) documented in this encounter History of Present [...] medications would be and if reasonable with [facility] if not then [...] Date 03/03/19 0000 - 03/03/19 2359 Shift [id number] 7090-1871 5032-5895 24 Hour Total INTAKE P.O. 120 120 [...] gms)/meal Problem List: Principal Problem: CAD in [place] artery Active Problems: S/P CABG x 3 Hyperkalemia Diabetes mellitus (HCC) Hypertension HFrEF (heart failure with reduced ejection fraction) (HCC) Resolved Problems: * No resolved hospital problems. * Assessment and Plan: 1. Multivessel CAD: Status post CABG x 3: FOLEY to LAD, V to OM2, V to [...] Initiative Log: - none to date * Marga Clint - 03/02/2019 3:28 PM EST Physical Therapy [...] of Arthritis, Blood circulation, collateral, CAD in [place] artery, Diabetes mellitus (HCC), HFrEF (heart failure with reduced ejection fraction) ([facility]), and Hypertension. has a past surgical [...] Minutes: 27 Minutes(FAx1, GA x1 ) DIEGO Gutierres, ENTERTAINMENT MUSICIAN * Oren Adams MD - 03/02/2019 9:21 [...] []Injected [x]Non-Injected / Pinnae []Normal []Other/ Dentitian [][place] Teeth []Dentures Oral Mucosa [][employer] [x]Moist []Dry/ Oral ETT []Present [x]Absent Neck: [...] [x]Absent/ FERGUSON ([]RUE []RLE []LUE []LLE) Neurologic: WILTON []Yes [x]No Corneal reflexes []Present []Absent / [...] ABG: Recent Labs 02/27/19 1545 PHART 7.274* [id number] 46.0* PO2ART 270.6* [id number] 98.8 CBC: Recent Labs 03/01/19 0015 03/02/19 [...] Portable Ordering Physician GRANT TAYLOR Accession Number [id number] CPT4 Codes 95290 () Reason For Exam sob Report CLINICAL INFORMATION: Shortness of breath. Status post open heart surgery. CHEST X-RAY, PORTABLE, 0537 hours: An AP portable view is compared to the prior examination of previous day. There is no change in the mediastinal or left lower hemithorax chest tubes or right internal jugular Bamberg-Jose introducer sheath. There is stable slightly limited [...] avoid intravascular fluid depletion Case discussed with PUMP TECHNICIAN from [facility], (Minoo) Critical care will sign [...] minutes so far today. * Minoo Encinas, PAPER CONE GRADER - CHIEF PAYROLL CLERK - 03/02/2019 4:05 AM EST Cardiothoracic Surgery [...] DIET CARDIAC; Assessment and Plan: CAD/HTN-S/P CABGx3 (FOLEY to LAD, V to OM2, V to PDA of RCA) EVH and DONNELL on 02/27/19: Negative fluid balance for stay weight up 6lbs- await CXR may add gentle diuresis; WILLARD improving; no BM discussed MOM/mag citrate will hold off for now. EF: 45% [facility]; intraop DONNELL pending-02/27 POD # 3 Core [...] with home health Planned Disposition: patient from [facility]; home when medically stable [x] Home [...] balance;Decreased ADL status;Decreased strength;Decreased endurance Assessment: OT silva completed. 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 Goals and/or treatment plan was established in collaboration with patient/family/other representatives. Heather Zhang OTR/L * Jos Baker, ENTERTAINMENT MUSICIAN - 03/01/2019 1:48 PM EST Physical Therapy [...] of Arthritis, Blood circulation, collateral, CAD in [place] artery, Diabetes mellitus (HCC), HFrEF (heart failure with reduced ejection fraction) ([facility]), and Hypertension. has a past surgical [...] AM-PAC Inpatient Mobility Raw Score : 15 (03/01/19 1347) AM-PAC Inpatient T-Scale Score : 39.45 (03/01/19 134) Mobility Inpatient CMS 0-100% Score: 57.7 (03/01/19 134) Mobility Inpatient CMS G-Code Modifier : CK [...] Conrad MD - 03/01/2019 10:53 AM EST [facility] [address] [place] [address] Dept: [phone] Loc: [phone] Visit Date: 03/01/2019 HPI: Christy Francis is [...] Date Arthritis Blood circulation, collateral CAD in [place] artery 02/22/2019 Diabetes mellitus (HCC) HFrEF (heart failure with reduced ejection fraction) (HCC) Hypertension Past Surgical History: Procedure Laterality Date CHOLECYSTECTOMY JOINT REPLACEMENT Current Facility-Administered Medications Medication Dose Route Frequency Provider Last Rate Last Dose heparin (porcine) injection 5,000 Units 5,000 Units Subcutaneous BID DIANA Dial CNP 5,000 Units at 03/01/19 0856 metoprolol tartrate (LOPRESSOR) tablet 25 mg 25 mg Oral BID Lukas Moise, DIANA - PANEL COVERER 25 mg at 856 pantoprazole (PROTONIX) tablet 40 mg 40 mg Oral QAM AC Apr MoiseDIANA - PANEL COVERER 40 mg at 03/01/19 0709 FLUoxetine (PROZAC) capsule 20 mg 20 mg Oral Daily Apr MoiseDIANA PANEL COVERER 20 mg at 03/01/19 0856 0.45 % [...] []Injected [x]Non-Injected / Pinnae []Normal []Other/ Dentitian [][place] Teeth []Dentures Oral Mucosa [][employer] [x]Moist []Dry/ Oral ETT []Present [x]Absent Neck: [...] [x]Absent/ FERGUSON ([]RUE []RLE []LUE []LLE) Neurologic: WILTON []Yes [x]No Corneal reflexes []Present []Absent / [...] ABG: Recent Labs 02/27/19 1545 PHART 7.274* [id number] 46.0* PO2ART 270.6* [id number] 98.8 CBC: Recent Labs 02/28/19 0404 03/01/19 [...] Portable Ordering Physician GRANT TAYLOR Accession Number [id number] CPT4 Codes 69293 () Reason For Exam sob Report CLINICAL INFORMATION: Shortness of breath. Status post open heart surgery. CHEST X-RAY, PORTABLE, 0537 hours: An AP portable view is compared to the prior examination of previous day. There is no change in the mediastinal or left lower hemithorax chest tubes or right internal jugular Bamberg-Jose introducer sheath. There is stable slightly limited [...] minutes so far today. * Minoo Encinas, PAPER CONE GRADER - CHIEF PAYROLL CLERK - 03/01/2019 4:54 AM EST Cardiothoracic Surgery [...] 97% BMI 33.25 kg/m I/O: Date 03/01/19 - 03/01/19 2359 Shift [id number] 4554-6369 4535-1076 24 Hour Total INTAKE Shift Total(mL/kg) OUTPUT [...] Oral Supplement Assessment and Plan: CAD/HTN-S/P CABGx3 (FOLEY to LAD, V to OM2, V to [...] this morning may increase BB. EF: 45% [facility]; intraop DONNELL pending-02/27 POD # 2 Chest [...] with home health Planned Disposition: patient from [facility]; home when medically stable [x] Home [...] mg Oral Daily Active Problems: CAD in [place] artery Diabetes mellitus (HCC) Hypertension HFrEF (heart failure with reduced ejection fraction) ([facility]) Resolved Problems: * No resolved hospital [...] 104/61 Pulse: 119 114 104 91 Resp: Temp: 97.9 F (36.6 C) TempSrc: Oral [...] IMPRESSIONS/RECOMMENDATIONS: 1. CAD s/p CABG x 3: FOLEY to LAD, V to OM2, V to [...] left. 8. Dispo - Pt lives in [place] and states she intends to follow up [...] up weekly Nutrition Assessment: Pt presents from [place] for evaluation for PCI vs CABG after presenting to [place] ED with chest pressure and having abnormal [...] High Nutrient Needs: Estimated Daily Total Kcal: 3697-5161 Estimated Daily Protein (g): 48-57 Estimated Daily [...] Asaf=19. Chest tubex3. Labs noted: ^BUN-25, ^potassium-7.0-->6.7, kezzeux-25-759, HgA1C on 02/25-10.3% Wound Type: Surgical Wound [...] confirm weight change, will continue to monitor [place] Body Wt: 105 lb (47.6 kg), % [place] Body 168% BMI Classification: BMI 30.0 - [...] admitted for Pod#1 CABG x 3. Pt ENTERTAINMENT MUSICIAN was living alone independently. Pt this date [...] of Arthritis, Blood circulation, collateral, CAD in [place] artery, Diabetes mellitus (HCC), HFrEF (heart failure with reduced ejection fraction) ([facility]), and Hypertension. 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 Mil Reddy, PT * Liz Diaz, PAPER CONE GRADER - CHIEF PAYROLL CLERK - 02/28/2019 11:20 AM EST ENDOCRINOLOGY PROGRESS NOTE Patient: Christy Francis Unit/Bed:[id number] Date of : 1950 Admit date: 02/22/2019 [...] (H) 02/25/2019 Multivessel CAD with Angina - [facility] on 02/22 concerning for multivessel disease - S/p CABG yesterday Plan: As outpatient prior to this admission: Road Sign Installer: None Diabetes Medications/regimen: Metformin 500 mg daily [...] []Injected [x]Non-Injected Pinnae [x]Normal []Other Oral Mucosa [x][employer] [x]Moist []Dry Oral ETT []Present [x]Absent Neck: [...] [x]Absent FERGUSON ([x]RUE [x]RLE [x]LUE [x]LLE) Neurologic: WILTON []Yes [x]No Corneal reflexes []Present []Absent Plantar [...] prophylaxis Patient Active Problem List: CAD in [place] artery Diabetes mellitus ([facility]) Hypertension HFrEF (heart failure with reduced ejection fraction) ([facility]) CHANTELL ÁLVAREZ MD * Lukas Moise [...] Date 02/28/19 0000 - 02/28/19 2359 Shift [id number] 8249-3342 9734-0134 24 Hour Total INTAKE I.V.(mL/kg/hr) 2220(3.5) 2220 [...] LIQUID; Problem List: Active Problems: CAD in [place] artery Diabetes mellitus (HCC) Hypertension HFrEF (heart failure with reduced ejection fraction) ([facility]) Resolved Problems: * No resolved hospital problems. * Assessment and Plan: 1. Multivessel CAD: Status post CABG x 3: FOLEY to LAD, V to OM2, V to [...] EST Hospitalist Progress Note 02/27/2019 10:49 AM [phone]: Please page me for patient care issues. [phone]: Please page [facility] night Hospitalist for any issues. [...] of Hospitalist Medicine Inpatient Medical Services PAGER: [phone] * Sixto Salamanca MD - 02/26/2019 1:31 [...] (H) 02/25/2019 Multivessel CAD with Angina - [facility] on 02/22 concerning for multivessel disease - Planning for possible CABG on Wednesday Plan: As outpatient prior to this admission: Road Sign Installer: None Diabetes Medications/regimen: Metformin 500 mg daily [...] 2-4 weeks after discharge * Ronda Carmona, PAPER CONE GRADER - PANEL COVERER - 02/26/2019 11:23 AM EST Cardiothoracic Surgery Progress Note 02/26/2019 Subjective: Admit Date: 02/22/2019 Interval History: Transferred from [place](see consult note) Multivessel CAD plan for CABG [...] Date 02/26/19 0000 - 02/26/19 2359 Shift 7179-5853 5150-8599 0713-1435 24 Hour Total INTAKE P.O. 240 240 [...] Specified Problem List: Active Problems: CAD in [place] artery Diabetes mellitus (HCC) Hypertension HFrEF (heart failure with reduced ejection fraction) ([facility]) Resolved Problems: * No resolved hospital [...] Plan: As outpatient prior to this admission: Road Sign Installer: None Diabetes Medications/regimen: Metformin 500 mg daily [...] 2-4 weeks after discharge * Ronda Carmona, PAPER CONE GRADER - PANEL COVERER - 02/25/2019 10:52 AM EST Cardiothoracic Surgery Progress Note 02/25/2019 Subjective: Admit Date: 02/22/2019 Interval History: Transferred from [place](see consult note) Multivessel CAD plan for CABG [...] Date 02/25/19 0000 - 02/25/19 2359 Shift 5882-8875 9143-2171 3292-6354 24 Hour Total INTAKE P.O. 200 300 [...] CONTROL; Problem List: Active Problems: CAD in [place] artery Diabetes mellitus (HCC) Hypertension HFrEF (heart failure with reduced ejection fraction) ([facility]) Resolved Problems: * No resolved hospital [...] 25 mg, 25 mg, Oral, BID, Brigido Cornad MD, 25 mg at 02/25/19 0842 lisinopril [...] Discharge planning: TBD Jayson Metzger MD * MoiseLukas APRN - PANEL COVERER - 02/24/2019 2:54 PM EST Cardiothoracic Surgery Progress Note 02/24/2019 Subjective: Admit Date: 02/22/2019 Interval History: Transferred from [place](see consult note) Multivessel CAD plan for CABG [...] 33.35 kg/m I/O: Date 02/24/19 0000 - 02/24/192358 Shift 9772-2319 9701-3595 3422-5040 24 Hour Total INTAKE P.O. 812 887 1219 Shift Total(mL/kg) 400(5) 720(9) 1120(14) OUTPUT Urine(mL/kg/hr) [...] CONTROL; Problem List: Active Problems: CAD in [place] artery Diabetes mellitus (HCC) Hypertension HFrEF (heart failure with reduced ejection fraction) ([facility]) Resolved Problems: * No resolved hospital [...] Date 02/24/19 0000 - 02/24/19 2359 Shift 3390-9536 3850-1111 1768-3180 24 Hour Total INTAKE P.O.(mL/kg/hr) 400(0.6) 400 [...] neurologic deficits. Assessment Active Problems: CAD in [place] artery Diabetes mellitus (HCC) Hypertension HFrEF (heart failure with reduced ejection fraction) ([facility]) Resolved Problems: * No resolved hospital [...] be monitored and followed by the diet fiber optic technician. FAREED Fischer * Mil Pettit MD - 02/23/2019 9:52 AM EST Hospitalist Progress Note 02/23/2019 9:52 AM Subjective: Admit Date: 02/22/2019 PCP: LIANET PETERS Interval History: pt feels ok Some sore throat No overnight issues. Deniesabdominal pain, nausea, vomiting, diarrhea, constipation, fevers, or chills. DIET CARB CONTROL; Date 02/23/19 0000 - 02/23/19 2359 Shift 2159-2132 3425-9894 3540-2603 24 Hour Total INTAKE Shift Total(mL/kg) OUTPUT [...] neurologic deficits. Assessment Active Problems: CAD in [place] artery Diabetes mellitus (HCC) Hypertension HFrEF (heart failure with reduced ejection fraction) ([facility]) Resolved Problems: * No resolved hospital problems. * Await CTS and cards review of images, surgical planning Increase insulin Supportive care otherwise See orders, continue POC Advance Directive: Full Code Suzan Trevino Hospitalist documented in this encounter Assessments Diagnosis CAD in [place] artery- Primary Coronary atherosclerosis of [place] coronary artery S/P CABG x 3 Postsurgical aortocoronary bypass status Type 2 diabetes mellitus with other circulatory complication, with long-term current use of insulin (HCC) Diabetes mellitus ([facility]) Type II or unspecified type diabetes mellitus without mention of complication, not stated as uncontrolled Hypertension Unspecified essential hypertension HFrEF (heart failure with reduced ejection fraction) ([facility]) Hyperkalemia Hyperpotassemia Advance Directives No Advanced Directives Records FoundDocuments on File Type Date Recorded Patient Paintless Dent Repair Technician Expl anation Advance Directives and Living Will Power of Body Shop Estimator Latest Code Status on File Code Status Date Activated Date Inactivated Comments Full Code 02/27/2019 4:35 PM Full Code 02/22/2019 3:10 PM 02/27/2019 4:35 PM Advance Directive Response Recorded Date/ Time Advance Directives Yes May 8:25am Living Will Yes June 03 8:25am Power of Body Shop Estimator Yes June 03, 2021 8:25am Advance Directive Response Recorded Date/ Time Advance Directives Yes May 8:25am Living Will No March 29 5:45pm Power of Body Shop Estimator No March 29, 2022 5:45pm Advance Directive Response Recorded Date/ Time Advance Directives Yes May 9:25am Living Will No March 29 022 6:45pm Power of Body Shop Estimator No March 29, 2022 6:45pm Advance Directive Response Recorded Date/ Time Advance Directives Yes May 9:25am Advance Directive Response Recorded Date/ Time Living Will No October 01, 2023 2:53pm Do you have a Healthcare Power of Body Shop Estimator? No October 01, 2023 2:53pm Advance Directives Yes May 9:25am Advance Directive Response Recorded Date/ Time Living Will No October 01, 2023 2:53pm Do you have a Healthcare Pow er of Body Shop Estimator? No October 01, 2023 2:53pm Do you have a Healthcare Pow er of Body Shop Estimator? Yes January 07, 2025 4:04pm Name of Medical Power of Body Shop Estimator Lynda Francis, [id number] January 07, 2025 4:04p m Advance Directives [...] neuropathy December 9:20am [facility] 9:[facility] Chest pain January 07, 2025 3:00pm Essential hypertension January 07, 025 3:00pm History of coronary artery bypass graft x 3 January 07, 2025 3:00pm HLD (hyperlipidemia) January 07 3:00pm PAD (peripheral artery disease) [facility] 2024 3:00pm Thickened endometrium January 10 10:45am [...] Room 1 January 18, 2025 9: 36am Chief Complaint Admit Date 1 Y FU November 02, 2024 10:1 1am PELVIC PAIN, RLQ November 29, 2024 8: 38am EORDER December 06, 2024 9: 05am PAD December 12, 2024 10 :37am CLAUDICATION December 22, 2024 9:26am Discuss Results January 03, 2025 9:20am CHEST PAIN January 07, 2025 3:00pm CHEST PAIN January 08, 2025 12:14pm CHEST PAIN January 08, 2025 12:50pm CHEST PAIN January 08, 2025 1:57pm EMB ([place]) January 10, 2025 10:45am LUMBAR SPINE January 18, 2025 9: 21am Room 1 January 18, 2025 9: 36am I73.9 Peripheral vascular disease, unspe cified January 22, 2025 7:02am screen January 29, 2025 7 :10am S/P [facility] 01/08January 30, 2025 8 :50am E ORDERS 2025 9 :56am Reason for Visit Admit Date Severe left [...] neuropathy December 9:20am [facility] Chest pain January 07, 2025 3:00pm Essential hypertension January 07, 2 025 3:00pm History of coronary artery bypass graft x 3 January 07, 2025 3:00pm HLD (hyperlipidemia) January 07 3:00pm PAD (peripheral artery disease) [facility] 2024 3:00pm Thickened endometrium January 10 10:45am Degenerative disc disease (D DD) of lumbar region with discogenic back pain January 18, 2025 9:21am Lumbar stenosis with neurogenic claudica tion January 18, 2025 9:21am Spondylolisthesis at L4-L5 level January 18, 2025 9:21am Cardiomyopathy 2025 8 :50am Left ventricular hypertrophy January 8:50am Atherosclerosis of [place] co ronary artery of [place] heart without angina 2025 8:50am Additional Source Comments INFORMATION SOURCE (unrecogn ized section and content) DATE CREATED AUTHOR 05/04/2019 [employer] DATE CREATED AUTHOR AUTHOR'S ORGANIZ ATION 02/28/2025 [facility] Goals (unrecognized section and content) Goals [...] MD Family Provider Active Dr. Marielos Perla , DO Primary Care Provider Active Team Status: Inactive Member Role Status Dates Dr. Marielos Perla , DO Primary Care Provider Active Charlie Johnosn PUMP TECHNICIAN, PUMP TECHNICIAN-C Attending Provider, Referring Pro vider Active Team Status: Inactive Member Role Status Dates Dr. Marielos Perla , DO Primary Care Provider Active Dr. Keith [...] Primary Care Provider, Referring P rovider Active Kalye Son PUMP TECHNICIAN, PUMP TECHNICIAN-C Attending Provider Active Team Status: Inactive Member [...] 2024 End: June 05, 2024 Charlie Johnson PUMP TECHNICIAN, PUMP TECHNICIAN-C Attending Provider Active S tart: June 05, [...] 02, 2024 End: November 02, 2024 Jennifer Bailey PA, PA Attending Provider Active Start: November 02, 2024 End: November 02, 2024 Team Status: Inactive Member Role/Relationship Status Dates Dr. Marielos Perla DO Primary Care Provider Active Start: November 02, 2024 End: November 02, 2024 Jennifer Bailey PA, PA Attending Provider Active Start: November 02, 2024 End: November 02, 2024 Jennifer Bailey PA, PA Referring Provider Active Start: November 02, [...] Provider Active Start: December 06, 2024 Jennifer Bailey PA, PA Attending Provider Active Start: December 06, 2024 Jennifer Bailey PA, PA Referring Provider Active Start: December 06, [...] End: December 06, 2024 Jennifer HOLLAND PA Referring Provider Active Start: December 06, [...] Status: Inactive Member Role/Relationship Status Dates Dr. Marileos Perla DO Primary care physician Active Start: November 02, 2024 End: November 02, 2024 SKYLER Clarke Attending physician Active Start: November 02, 2024 End: November 02, 2024 SKYLER Clarke Referring Provider Active Start: November 02, 2024 [...] End: December 06, 2024 Jennifer HOLLAND PA Referring Provider Active Start: December 06, [...] 08, 2025 Dr. [facility] Active Start: January 07, 2025 [...] 08, 2025 Dr. Elena [facility] Active Start: January 08, 2025 [...] 2025 End: January 10, 2025 Lamar Olivera PUMP TECHNICIAN, PUMP TECHNICIAN-C Attending physician Active Start: January 10, 2025 End: January 10, 2025 Team Status: Inactive Member Role/Relationship Status Dates Dr. Marielos Perla DO Primary care physician Active Start: January 10, 2025 End: January 10, 2025 Lamar Olivera PUMP TECHNICIAN, PUMP TECHNICIAN-C Attending physician Active Start: January 10, 2025 End: January 10, 2025 Team Status: Inactive Member Role/Relationship Status Dates Dr. Marielos Perla DO Primary care physician Active Start: November 02, 2024 End: November 02, 2024 Dr. Marielos Perla DO Referring Provider Active St art: November 02, 2024 End: November 02, 2024 Jennifer HOLLAND, PA Attending physician Active Start: November 02, 2024 End: November 02, 2024 Team Status: Inactive Member Role/Relationship Status Dates Dr. Marielos Perla DO Primary care physician Active Start: November 02, 2024 End: November 02, 2024 Jennifer HOLLAND, PA Attending physician Active Start: November 02, 2024 End: November 02, 2024 Jennifer Bailey PA, PA Referring Provider Active Start: November 02, [...] 08, 2025 Dr. Elena [facility] Active Start: January 08, 2025 [...] 2025 End: January 10, 2025 Lamar Olivera PUMP TECHNICIAN, PUMP TECHNICIAN-C Attending physician Active Start: January 10, 2025 End: January 10, 2025 Team Status: Inactive Member Role/Relationship Status Dates Dr. Marielos Perla DO Primary care physician Active Start: January 10, 2025 End: January 10, 2025 Lamar Olivera PUMP TECHNICIAN, PUMP TECHNICIAN-C Attending physician Active Start: January 10, 2025 [...] 2025 End: January 18, 2025 Team Status: Active Member Role/Relationship Status Dates Dr. Marielos Perla DO Primary care physician Active Start: January 08, 2025 Dr. Jorge Anderson MD Attending physician Active Start: January 08, 2025 Dr. Jorge Anderson MD Referring Provider Active S tart: January 08, 2025 Team [...] DO Primary care physician Active Start: January 22, 2025 End: January 22, 2025 SKYLER Watson Attending physician Active Sta rt: January 22, 2025 End: January 22, 2025 SKYLER Watson Referring Provider Active Star t: January 22, 2025 End: January 22, 2025 Team Status: Inactive Member Role/Relationship Status Dates Dr. Marielos Perla DO Primary care physician Active Start: January 29, 2025 End: January 29, 2025 Lamar Olivera NP PUMP TECHNICIAN-C Attending physician Active Start: January 29, 2025 End: January 29, 2025 Lamar Olivera NP, NP-C Referring Provider Active Start: January 29, 2025 End: January 29, 2025 Team Status: Inactive Member Role/Relationship Status Dates Dr. Marielos Perla DO Primary care physician Active Start: 2025 End: 2025 Dr. Marielos Perla DO Referring Provider Active St art: 2025 End: 2025 SKYLER Gongora Attending physician Active S tart: 2025 End: 2025 Team Status: Inactive Member Role/Relationship Status Dates Dr. Marielos Perla DO Primary care physician Active Start: 2025 End: 2025 SKYLER Gongora Attending physician Active S tart: 2025 End: 2025 SKYLER Gongora Referring Provider Active St art: 2025 End: 2025 FOR RECORDS PERTAINING TO PATIENTS WHO [...] BE BASED ON THE PRIMARY CLINICAL RECORDS. [facility] [employer] [facility]. provides no warranty or guarantee of the accuracy or completeness of information in this document.
== END | disposition home or self-care (01) ==
LOC: CVS 13:27
PROVIDERS: PCP Family Medicine; Referring Provider Physician Assistant Medical; Visit Provider Physician Assistant Medical
DX: I51.89 Other ill-defined heart diseases (principal)
CPT/HCPCS: 93306; Q9957; C8929

== ENCOUNTER 2025-03-18 17:21 | Emergency (ER) | payer MEDICARE, SELFPAY ==
[2019-11-14 08:38] VITALS: BMI 31.6
[2025-03-18 17:21] VITALS: BP 172/87; PULSE 85; RESP 14; TEMP 36.1; BMI 30.9
--- NOTE | 2025-03-18 17:27 | EDS_ITS ---
HPI History of Present Illness HPI Narrative: Patient presents with a left ankle injury that occurred today. Patient states she twisted her left ankle and fell. Patient thinks she inverted her ankle. Patient states she felt some popping in her left ankle. Patient states her pain is burning and stabbing. Patient states nothing makes it better nothing makes it worse. Patient was able to ambulate after the fall. Patient denies any weakness. Patient admits to some tingling into her toes. Patient denies any other injuries. Chief Complaint: Lower Extremity Injury Informant: patient Occured/Mechanism Mechanism/Context: Yes fall Onset/Context/Timing Onset: Today Context: Sudden Onset Timing: Continuous Quality of Pain: Burning and Stabbing Location: Left ankle Worsened by: Nothing Relieved by: Nothing Associated Symptoms Associated Symptoms: Positive for Parasthesia; Negative for Weakness or Loss of Funtion PFSH PFS Medical History PAD (peripheral artery disease) Wears glasses Post-menopausal Depression Anxiety Diabetes Arthritis High cholesterol Back pain Gastric reflux Smoker Shortness of breath on exertion History of pain when walking History of echocardiogram History of stress test Cardiology follow-up encounter History of heart attack Severe left ventricular systolic dysfunction (LVSD) Right rotator cuff tear Trigger finger of both hands History of left heart catheterization (LHC) (~06/03/21) Essential hypertension Mechanical loosening of prosthetic knee Atherosclerosis of [place] coronary artery of [place] heart without angina pectoris PAD (peripheral artery disease) HLD (hyperlipidemia) Home Medications ?Medication ?Instructions ?Recorded ?Last Taken ?Type aspirin 81 mg tablet,delayed 81 mg PO DAILY heart heal th 12/15/13 01/07/25 History release duloxetine 60 mg capsule,delayed 60 mg PO DAILY mental health 08/20/22 01/07/25 History release allopurinol 300 mg tablet 300 mg PO BID gout 11/05/23 01/07/25 History cilostazol 100 mg tablet 100 mg PO BID anti platelet 11/05/23 01/07/25 History rosuvastatin 10 mg tablet See Rx Instructions .Route 1 01/06/25 Rx .COMPLEX cholesterol #90 TABLETS furosemide 40 mg tablet 40 mg PO DAILY diuretic #90 TABLETS 06/19/24 01/07/25 Rx insulin aspar prt-insulin aspart 20 unit subcut QAM MS N diabetes 11/02/24 01/07/25 History 100 unit/mL (70-30) subcutaneous soln (Novolog Mix 70-30 U-100 Insuln) nitroglycerin 0.4 mg sublingual 0.4 mg sublingual Q5-1 5M PRN chest 11/02/24 Unknown Rx tablet pain #25 tabs tirzepatide 10 mg/0.5 mL 10 mg subcut MO diabetes 03/12/25 History subcutaneous pen injector (May) isosorbide mononitrate 60 mg 60 mg PO BID heart 01/07/25 History tablet,extended release 24 hr omeprazole 20 mg capsule,delayed 20 mg PO DAILY reflux 01/07/25 01/07/25 History release losartan 25 mg tablet 12.5 mg (1/2 x 25 mg) PO GAYE LY #15 01/08/25 Unknown Rx tabs metoprolol tartrate 50 mg tablet 75 mg (1.5 x 50 mg) P O BID blood 01/08/25 Unknown Rx pressure #180 tabs ranolazine 500 mg tablet,extended 500 mg PO BID #180 t abs 01/30/25 Unknown Rx release,12 hr Allergy/AdvReac Type Severity Reaction Status Date / Time cefazolin Allergy Shortness Verified 03/18/25 17:22 of breath codeine Allergy Shortness Verified 03/18/25 17:22 of breath morphine Allergy Other Verified 03/18/25 17:22 naloxone (Naloxone) Allergy Shortness Verified 03/18/25 17:22 of breath pentazocine Allergy Shortness Verified 03/18/25 17:22 of breath pentazocine lactate (From Allergy Shortness Verified 03/18/25 17:22 Flakita) of breath atorvastatin AdvReac Severe Severe Verified 03/18/25 17:22 myalgias acetaminophen (From Tylenol) AdvReac Nausea Verified 03/18/25 17:22 Family History Mother Heart disease Surgical History (Updated 03/13/25 @ 16:27 by Lynda Franks) History of cardiac catheterization History of carpal tunnel surgery of right wrist History of carpal tunnel surgery of left wrist History of cholecystectomy History of coronary artery bypass graft x 3 (~02/27/19) History of prosthetic unicompartmental arthroplasty of left knee Social History current occupational status: retired current occupation: Retired. [employer]. Smoking Status: Light Smoker (<10/day) alcohol intake: current alcohol intake frequency: holidays/special occasions only substance use type: does not use caffeine: Yes Type: coffee Number of servings: 3 do you feel safe at home: Yes additional social history: . ROS ROS ED Constitutional Constitutional ED: Denies chills or fever(s) Eyes Eyes: Denies blurry vision or change in vision ENT ENT ED: Denies rhinorrhea or sore throat Cardiovascular Cardiovascular: Denies chest pain or palpitations Respiratory/Chest Respiratory/Chest: Denies cough or dyspnea Gastrointestinal Gastrointestinal: Denies nausea or vomiting Genitourinary Genitourinary ED: Denies dysuria or hematuria Musculoskeletal Musculoskeletal: Denies back pain or neck pain Integumentary Denies abscess or rash Neurologic Neurologic: Denies headache(s) or weakness Allergic/Immunologic Allergic/Immunologic ED: Denies mouth swelling or urticaria EXAM Physical Exam Const Vital Signs: 03/18/25 17:21 Temperature 97 F L Temperature Source Temporal Pulse Rate 85 Respiratory Rate 14 Blood Pressure 172/87 H Blood Pressure Mean 115 Positive well nourished and well developed General Appearance ED: well developed and NAD HEENT Reports moist mucous membranes normocephalic and atraumatic Neck full ROM and supple Extremity Extremity Narrative: There is tenderness, edema, and ecchymosis over the lateral aspect of the left ankle. There is no tenderness over the proximal fibula. There is minimal tenderness over the fifth metatarsal. There is no tenderness over the medial malleolus. Range of motion was slightly limited in all motions of the left ankle secondary to pain. Sensation was intact to light touch in all digits. Capillary refill is less than 2 seconds in all digits. There is good pedal pulse palpated. Neuro oriented x3, CN's II-XII intact bilaterally, moves all extremities and no sensory deficits noted Sensorium / Orientation: alert Motor Exam: strength 5/5 throughout Psych mental status grossly normal MDM MDM MDM Narrative Medical decision making narrative: Differential diagnose includes fracture, sprain, and contusion. X-rays of the left ankle will be obtained to assess for fracture. Radiography Diagnostic Testing: Clinical Impression(s) from Imaging Studies Ankle X-Ray 03/18/25 17:36 IMPRESSION: Distal fibular nondisplaced fracture Reading Location: [facility] X-rays of the left ankle were obtained. There are 3 views. On my independent interpretation, there is a questionable nondisplaced fracture of the tip of the lateral malleolus. There is no displacement. There is no angulation noted. Radiologist also interpreted the x-rays and agrees. Treatment and Re-Evaluation Narrative: Patient was advised of her findings. Patient was placed in a walking boot. Patient was instructed to follow-up with orthopedics or podiatry in 5 to 7 days. Patient was instructed to return if worse in any way. Patient understood and was agreeable with the plan. All questions were answered. Discharge Plan Triage Chief Complaint: Lower Extremity Injury ED Provider: Galo Patiño Dx/Rx/DC Orders Clinical Impression: Nondisplaced fracture of distal end of fibula, Fall, Type II diabetes mellitus Instructions: ED Ankle Fracture, Distal Fibula Prescriptions: No Action duloxetine 60 mg capsule,delayed release(DR/EC) 60 mg PO DAILY insulin asp prt-insulin aspart [Novolog Mix 70-30 U-100 Insuln] 100 unit/mL (70-30) solution 20 unit subcut QAM PRN (Reason: diabetes) Patient Comments: 20-25 cilostazol 100 mg tablet 100 mg PO BID allopurinol 300 mg tablet 300 mg PO BID Mounjaro 10 mg/0.5 mL pen injector 10 mg subcut MO Patient Comments: [NO ORIGINAL SIG] nitroglycerin 0.4 mg tablet, sublingual 0.4 mg sublingual Q5-15M PRN (Reason: chest pain) Qty: 25 3RF Rx Instructions: do not exceed 3 doses per episode ranolazine 500 mg tablet extended release 12 hr 500 mg PO BID Qty: 180 3RF aspirin 81 MG tablet 81 mg PO DAILY isosorbide mononitrate 60 mg tablet extended release 24 hr 60 mg PO BID omeprazole 20 mg capsule,delayed release(DR/EC) 20 mg PO DAILY losartan 25 mg tablet 12.5 mg PO DAILY Qty: 15 0RF metoprolol tartrate 50 mg tablet 75 mg PO BID Qty: 180 1RF rosuvastatin 10 mg tablet See Rx Instructions .ROUTE .COMPLEX Qty: 90 3RF Dose Instruction: TAKE 1 TABLET BY MOUTH EVERY DAY Rx Instructions: TAKE 1 TABLET BY MOUTH EVERY DAY furosemide 40 mg tablet 40 mg PO DAILY Qty: 90 3RF Primary Care Provider: Marielos Perla Referrals: Marielos Perla DO [Primary Care Provider, [facility]] - 5-7 Days Molly Rashid DPM [Med Staff - Active Staff, Podiatry] - 3-5 Days Mil Cook MD [Med Staff - Active Staff, Orthopedics] - 3-5 Days Print Language: Beninese Disposition Disposition: Home, Self Care
--- NOTE | 2025-03-18 17:36 | RAD_ITS ---
PROCEDURE: ANKLE MIN 3 VIEWS 03/18/2025 REASON FOR EXAM: INJURY/PAIN TECHNIQUE: Procedure Code: RADANK Modality: DX Procedure: ANKLE MIN 3 VIEWS Laterality: Left FINDINGS: There is a fracture, nondisplaced of the distal fibula. Calcaneal spurring present. RAD/Ankle min 3 Views IMPRESSION: Distal fibular nondisplaced fracture Reading Location: [facility]
--- OUTSIDE RECORDS SUMMARY | 2025-03-18 17:51 | XMS RPT_ITS | CCD ---
Author Organization [facility] Care Team Providers Care Cardiovascular Invasive Specialist Name Role Phone LorraineLianet Charis Primary Care Provider Dr. Marielos Perla Primary Care Provider Dr. Marielos Perla Referring Provider 1([facility])[phone] MD Bruce Dubon Attending Provider [phone] Marielos Perla Primary Care Provider 1([facility])[phone] Dr. Marielos Perla Referring Provider 1([facility])[phone] Huy SECURITY SHIFT SUPERVISOR, SECURITY SHIFT SUPERVISOR-C Kaley Attending Provider SKYLER Thakkar Attending Provider Dr. Marielos Perla DO Primary Care Provider [phone]([facility])[phone] Dr. Marielos Perla DO Referring Provider 1([facility])[phone] Charlie Mcknight Attending Provider Mike SECURITY SHIFT SUPERVISOR-CRand Attending Provider [phone] Mike SECURITY SHIFT SUPERVISOR-CRand Referring Provider 1([facility])[phone] Marielos Perla DO Primary Care Provider [phone] Dr. Marielos Perla DO Referring Provider [phone] Jennifer Thakkar Attending Provider [phone] Jennifer Thakkar Referring Provider Dr. Marielos Perla DO Attending Provider [phone] Ava Walker Attending Provider 1([facility])-[phone] Ava Walker Referring Provider Brian ROMERO, Dr. Rosenthal Attending Provider Pan LYLE, Dr. Arceo Primary Care Physician Mike SECURITY SHIFT SUPERVISOR-CRand Attending Physician [phone] Jennifer Thakkar Attending Physician Pan LYLE, Dr. [...] Oren LYLE, Dr. Zapien Nurse Practitioner Jarod SECURITY SHIFT SUPERVISOR-CLamar Attending Physician Pan LYLE, Dr. Arceo Primary Care Physician Lidia Fleming Attending Physician Monica ROMERO, Dr. Patel Attending Physician Monica ROMERO, Dr. Patel Referring Provider Jarod SECURITY SHIFT SUPERVISOR-CLamar Referring Provider Akin Reynolds Attending Physician Akin Reynolds Referring Provider Jorge Anderson Consulting Unavailable Laurenceam, Maritza Leticia Admitting Unavailable Rupali Lott Attending Unavailable Malys, Marielos Primary Care Unavailable Koram, Maritza Leticia Consulting Unavailable Jennifer Thakkar Attending Unavail able Jennifer Thakkar Referring Unavail able Malys, Marielos Primary Care Unavailable Malys, Marielos Attending Unavailable Malys, Marielos Referring Unavailable Malys, Marielos Primary Care Unavailable [facility] Charlie LOCKHART Attending Unavailable Malys, Marielos Referring Unavailable Malys, Marielos Primary Care Unavailable Malys, Marielos Referring Unavailable Lynn HOLLAND, Jennifer Wright Attending Unavail able Malys, Marielos Primary Care Unavailable Young, Ava Attending Unavailable Malys, Marielos Referring Unavailable Malys, Marielos Primary Care Unavailable Jarod SECURITY SHIFT SUPERVISOR, Lamar Attending Unavailable Malys, Marielos Referring Unavailable [...] Consulting Unavailable Oren, Rupali Consulting Unavailable Jarod SECURITY SHIFT SUPERVISOR, Lamar Attending Unavailable [place] SECURITY SHIFT SUPERVISOR, Lamar Referring Unavailable Malys, Marielos Primary Care Unavailable [place] SECURITY SHIFT SUPERVISOR, Lamar Attending Unavailable Malys, Marielos Primary Care Unavailable Malys, Marielos Referring Unavailable Malys, Marielos Primary Care Unavailable Malys, Marielos Attending Unavailable Demiter, Akin Attending Unavailable Demiter, Akin Referring Unavailable Malys, Marielos Primary Care Unavailable Jack, Lidia Consulting Unavailable [place] SECURITY SHIFT SUPERVISOR, Lamar Attending Unavailable Jarod SECURITY SHIFT SUPERVISOR, Lamar Referring Unavailable Malys, Marielos Primary Care Unavailable Monica, [place] Attending Unavailable Sorento, Grant Attending Unavailable Young, Ava Referring Unavailable Malys, Marielos Primary Care Unavailable Koram, Maritza Leticia Attending Unavailable Monica, [place] Attending Unavailable Malys, Marielos Primary Care Unavailable Jack, Lidia Attending Unavailable Malys, Marielos Primary Care Unavailable Malys, Marielos Referring Unavailable Charlie Johnson NP Attending Unavailable Malys, Marielos Referring Unavailable Malys, Marielos Primary Care Unavailable Jennifer Thakkar Referring Unavail able Jennifer Thakkar Attending Unavail able Malys, Marielos Primary Care Unavailable Jennifer Thakkar Referring Unavail able eJnnifer Thakkar Attending Unavail able Malys, Marielos Primary Care Unavailable Yaa Stanford Attending Unavailable Malys, Marielos Primary Care Unavailable Allergies Allergy Classification Reported Allergen(s) Allergy Type Date of Onset Reaction(s) Facility (20 sources) ceFAZolin Drug Allergy 9 Hives, Shortness Of Breath [place], [place] (20 sources) Codeine Drug Allergy 9 Hives, Shortness Of Breath [place] (20 sources) Morphine Drug Allergy 9 Hives, Shortness Of Breath [place] (20 sources) Naloxone Drug Allergy 9 Hives, Shortness Of Breath [place] (20 sources) Pentazocine Drug Allergy 9 Hives, Shortness Of Breath [place] (20 sources) Acetaminophen Drug Allergy 2 Nausea [facility] (20 sources) atorvastatin Drug Allergy 2 Severe myalgias [facility] (20 sources) Pentazocine; Translations: [pentazocine lactate] Drug Allergy 2 Shortness of breath [facility] (1 source) Acetaminophen Drug Allergy 5 [facility] Repository (1 source) atorvastatin Drug Allergy 5 [facility] Repository (1 source) ceFAZolin Drug Allergy 5 [facility] Repository (1 source) Codeine Drug Allergy 5 [facility] Repository (1 source) Morphine Drug Allergy 5 [facility] Repository (1 source) Naloxone Drug Allergy 5 [facility] Repository (1 source) Pentazocine Drug Allergy 5 [facility] Repository Medications Current Medications Medication Drug [...] 5-325 MG per tablet Indications: CAD in [place] artery , S/P CABG x 3 Take [...] extended release oral tablet (1 source) Uncompetitive S-uehbai-U-asparta te Receptor Antagonist, Sigma-1 Agonist Start: 02-25-2019 [...] interventions based on BGT and call the Corporate Securities Research Analyst. o Maximum insulin infusion drip rate may not exceed 30 units/hr; Insulin drip may NOT be discontinued unless approved by Corporate Securities Research Analyst. Discontinue all subcutaneous Insulin orders (if patient [...] March 28, 2019 2:41pm polyethylene glycol 3350 73270 mg powder for oral solution (20 sources) [...] 20 ml/hr to SP(introducer) and WT on [place] Jose Catheter; once [place] discontinued run at 20 ml/hr through SP(introducer) [...] heart disease (20 sources) Coronary arteriosclerosis in [place] artery; Translations: [Coronary atherosclerosis] Onset: 02-22-2019 03-03-2019 Chronic Comment on above: CABG x3 with FOLEY to LAD, SVG to OM 2, and SVG to PDA of RCA on 02/27/[address] Taylor at [facility]; Coronary atherosclerosis and other heart disease [...] Facility Orthopedic Visit Reporton Orthopedic Visit Report [facility] [address] [place] [address] OFFICE VISIT Date of Service: 02/26/25 MR#: [id number] Acct: [id number] Name: CHRISTY FRANCIS Rep #: [id number] : 1950 Provider: SKYLER Vance Age/Sex: 75/F [...] you fallen in the past year?: [facility] Severe left ventricular systolic dysfunction (LVSD) Palpitations Right rotator cuff tear Trigger finger of both hands Carpal tunnel syndrome on both sides FHx: cholecystectomy History of left heart catheterization (LHC) ( 06/03/21) Essential hypertension Mechanical loosening of prosthetic knee Atherosclerosis of [place] coronary artery of [place] heart without angina pectoris PAD (peripheral artery [...] recent inj (more content not included)... Normal [facility] MR/BMS.Son 02-14-2025 MR/BMS.JOHNNY [facility] Vascular Surgery [address] [place] [address] OFFICE VISIT Date of Service: 02/14/25 MR#: [id number] Acct: [id number] Name: CHRISTY FRANCIS Rep #: [id number] : 1950 Provider: Dr. Grant Torres MD Age/Sex: 75/F Location: [facility] Status: Signed Intake Vital Signs 01/18/25 09:28 [...] room air Intake Visit Reasons: DISCUSS RESULTS Marine Equipment Preservation Inspector Required: No Accompanied by: Self Is patient [...] Mechanical loosening of prosthetic knee Atherosclerosis of [place] coronary artery of [place] heart without angina pectoris PAD (peripheral artery disease) HLD (hyperlipidemia) Type II diabetes mellitus Surgical History History of cholecystectomy History of coronary artery bypass graft x 3 ( 02/27/19) History of prosthetic unicompartmental arthroplasty of left knee Family History Mother Heart disease Social History current occupational status: retired current occupation: Retired. [employer]. Smoking Status: Light Smoker (<10/day) alcohol intake: [...] disease burden and she was referred to [facility]. ROS General General: Yes weight change an (more content not included)... Normal [facility] Microalb:Creat Ratio,Random URon 02-14-2025 Creatinine [Mass/Vol] 68.50 mg/dL Normal 28.00-217.00 [facility] Comment on above: Performed By: #### L 502.0250 #### [facility] Laboratory [address] [place], [address] MALB:CREAT 348.9 mg/g CRE High <30 mg/g CRE [facility] Comment on above: Performed By: #### L 502.0250 #### [facility] Laboratory [address] [place], [address] MICROALBUMIN,UR 239.0 mg/L Normal <20 mg/L [facility] Comment on above: Performed By: #### L 502.0250 #### [facility] Laboratory [address] [place], [address] Pelvic w/ Transvaginalon Pelvic w/ Transvaginal [facility] Imaging Services [address] [place] [address] Pelvic w/ Transvaginal MR#: [id number] Acct: [id number] Name: CHRISTY FRANCIS Rep #: [id number] : 1950 F 75 From: Demarcus dominguez MD PCP: Dr. Marielos Perla, DO Status: REG CLI Study: Pelvic w/ Transvaginal Date of Exam: 02/13/25 Exam# [id number] Ordering Dr: Lamar Olivera NP SECURITY SHIFT SUPERVISOR -C PROCEDURE: PELVIC W/ TRANSVAGINAL REASON FOR [...] cm 1.8 cm uterine fibroid. Reading Location: [id number] CC: SECURITY SHIFT SUPERVISOR-C Lamar Olivera; Dr. Marielos Perla DO Treasury Accountant: Signed Normal [facility] Spine Lumbar (Routine)on Spine Lumbar (Routine) [facility] Imaging Services [address] [place] [address] Spine Lumbar (Routine) MR#: [id number] Acct: [id number] Name: CHRISTY FRANCIS Rep #: [id number] : 1950 F 75 From: Thee Ignacio MD PCP: Dr. Marielos Perla DO Status: REG CLI Study: Spine Lumbar (Routine) Date of Exam: 02/13/25 Exam# [id number] Ordering Dr: Lidia Santiago PROCEDURE: SPINE LUMBAR [...] narrowing from L1-L2 through L3-L4 Reading Location: [facility] CC: SKYLER Vance; Dr. Marielos Perla DO Treasury Accountant: Signed Normal [facility] Bilirubin directOrdered By: Akin Jauregui on 2025 Bilirubin.direct [Mass/Vol] 0.12 mg/dL 0.00-0.30 [facility] Bilirubin, totalOrdered By: Akin Jauregui on 2025 Bilirubin [Mass/Vol] 0.20 mg/dL 0.00-1.30 [facility] Calculated very low density lipoprotein (VLDL) cholesterol measurementOrdered By: Akin Jauregui on 2025 Calculated very low density lipoprotein (VLDL) cholesterol measurement 30 mg/dL 5-40 [facility] Cardiology Visit Reporton Cardiology Visit Report [facility] [address] [place] [address] OFFICE VISIT Date of Service: 01/30/25 MR#: [id number] Acct: [id number] Name: CHRISTY FRANCIS Rep #: [id number] : 1950 Provider: SKYLER Gongora Age/Sex: 75/F Location: [facility] Status: Signed HPI HPI History of Present Illness Details: Christy Francis is a 75-year-old female who presents to office today for hospital follow-up. She has a history of coronary artery disease status post CABG receiving FOLEY to her LAD, SVG to the OM 2 and SVG to RCA/PDA in February 2019 at [facility], ischemic mediated cardiomyopathy, hyperlipidemia, hypertension and peripheral arterial occlusive disease following with vascular surgery, Dr. Torres. 01/07/2025 she presented to [facility] ED with complaints of chest pain. [...] Method room air Intake Visit Reasons: S/P [facility] 01/08 Marine Equipment Preservation Inspector Required: No Accompanied by: Self Is patient [...] Rx press (more content not included)... Normal [facility] LDL calc ser/plasOrdered By: Akin Jauregui on 2025 Cholesterol in LDL [Mass/Vol] 55 mg/dL [facility] Comment on above: Yucrpfasov=619-400 m g/dL & Higher Ftmo=359 mg/dL or greaterFriedwald Equation for LDL-C Laboratory - Chemistry and C hemistry - challengeOrdered By: Akin Jauregui on 2025 AST [Catalytic activity/Vol] 17 U/L <32 [facility] Lipid Profileon 2025 CHOL:HDL 2.71 Normal [facility] Comment on above: Performed By: #### L 500.4100, L500.3400 #### [facility] Laboratory [address] [place], [place], [address] Cholesterol [Mass/Vol] 134 mg/dL Normal <=200 [facility] Comment on above: Result Comment: Chol esterol level, Desirable <200 mg/dL Borderline high cholesterol 200-239 mg/dL High cholesterol >=240 mg/dL Recommendations of the NCEP Adult Treatment Panel for the following risk-cutoff thresholds for the [place] population. Performed By: #### L 500.4100, L500.3400 #### [facility] Laboratory [address] [place], [place], [address] Cholesterol in HDL [Mass/Vol] 49 mg/dL Normal [facility] Comment on above: Result Comment: Teresita onal Cholesterol Education Program (NCEP) guidelines: <40 mg/dL: Low HDL-cholesterol (major risk factor for CHD) >= 60 mg/dL: High HDL-cholesterol (negative risk factor for CHD) HDL-cholesterol is affected by a number of factors, e.g. smoking, exercise, hormones, sex and age. Performed By: #### L 500.4100, L500.3400 #### [facility] Laboratory [address] [place], [address] Cholesterol in LDL [Mass/Vol] 55 mg/dL Normal [facility] Comment on above: Result Comment: Bord bfrlhl=945-598 mg/dL Higher Fuvi=703 mg/dL or greater Friedwald Equation for LDL-C Performed By: #### L 500.4100, L500.3400 #### [facility] Laboratory [address] [place], [address] Cholesterol in VLDL [Mass/Vol] 30 mg/dL Normal 5-40 [facility] Comment on above: Performed By: #### L 500.4100, L500.3400 #### [facility] Laboratory [address] [place], [address] Triglyceride [Mass/Vol] 150 mg/dL Normal [facility] Comment on above: Result Comment: The drugs N-Acetylcysteine and Metamizole may falsely depress this assay. Normal range: <150 mg/dL Borderline High: 150-199 mg/dL High: 200-499 mg/dL Very High: >500 mg/dL Performed By: #### L 500.4100, L500.3400 #### [facility] Laboratory [address] [place], [address] Liver Profileon 2025 Albumin [Mass/Vol] 3.9 g/dL Normal 3.4-4.8 [facility] Comment on above: Performed By: #### L 500.4100, L500.3400 #### [facility] Laboratory [address] [place], [address] ALK PHOS 98 U/L Normal 35-104 [facility] Comment on above: Performed By: #### L 500.4100, L500.3400 #### [facility] Laboratory [address] [place], [address] ALT [Catalytic activity/Vol] 9 U/L Normal <=34 [facility] Comment on above: Performed By: #### L 500.4100, L500.3400 #### [facility] Laboratory [address] [place], [address] AST [Catalytic activity/Vol] 17 U/L Normal <=31 [facility] Comment on above: Performed By: #### L 500.4100, L500.3400 #### [facility] Laboratory [address] [place], [address] Bilirubin [Mass/Vol] 0.20 mg/dL Normal 0.00-1.30 [facility] Comment on above: Performed By: #### L 500.4100, L500.3400 #### [facility] Laboratory [address] [place], [address] Bilirubin.direct [Mass/Vol] 0.12 mg/dL Normal 0.00-0.30 [facility] Comment on above: Performed By: #### L 500.4100, L500.3400 #### [facility] Laboratory [address] [place], [address] Globulin (S) [Mass/Vol] 2.8 g/dL Normal 2.2-4.2 [facility] Comment on above: Performed By: #### L 500.4100, L500.3400 #### [facility] Laboratory [address] [place], [address] T PROT 6.7 g/dL Normal 5.9-8.4 [facility] Comment on above: Performed By: #### L 500.4100, L500.3400 #### [facility] Laboratory [place], [address] Screening total cholesterol/ high density lipoprotein (HDL) cholesterol ratioOrdered By: Akin Jauregui on 2025 Cholesterol.total/Chol esterol in HDL [Mass ratio] 2.71 {ratio} [facility] Serum globulin measurementOr dered By: Akin Jauregui on 2025 Globulin (S) [Mass/Vol] 2.8 g/dL 2.2-4.2 [facility] Serum or plasma alanine whitehead otransferase (ALT) measurementOrdered By: Akin Jauregui on 2025 ALT [Catalytic activity/Vol] 9 U/L <35 [facility] Serum or plasma albumin shannon urement (mass/volume)Ordered By: Akin Jauregui on 2025 Albumin [Mass/Vol] 3.9 g/dL 3.4-4.8 [facility] Serum or plasma alkaline diana sphatase measurementOrdered By: Akin Shania on 2025 ALP [Catalytic activity/Vol] 98 U/L 35-104 [facility] Serum or plasma cholesterol in HDL measurement (mass/volume)Ordered By: Akin Jauregui on 2025 Cholesterol in HDL [Mass/Vol] 49 mg/dL >40 [facility] Comment on above: National Cholesterol Education Program (NCEP) guidelines:<40 mg/dL: Low HDL-cholesterol (major risk factor for CHD)>= 60 mg/dL: High HDL-cholesterol (negative risk factor for CHD)HDL-cholesterol is affected by a number of factors, e.g. smoking, exercise, hormones, sex and age. Serum or plasma cholesterol measurement (mass/volume)Ordered By: Akin Jauregui on 2025 Cholesterol [Mass/Vol] 134 mg/dL <201 [facility] Comment on above: Cholesterol level, D esirable <200 mg/dLBorderline high cholesterol 200-239 mg/dLHigh cholesterol >=240 mg/dLRecommendations of the NCEP Adult Treatment Panel for the following risk-cutoff thresholds for the [place] population. Total proteinOrdered By: Jakob Jauregui on 2025 Protein [Mass/Vol] 6.7 g/dL 5.9-8.4 [facility] Triglycerides measurementOrd ered By: Akin Jauregui on 2025 Triglyceride [Mass/Vol] 150 mg/dL <199 [facility] Comment on above: The drugs N-Acetylcy steine and Metamizole may falsely depress this assay. Normal range: <150 mg/dLBorderline High: 150-199 mg/dLHigh: 200-499 mg/dLVery High: >500 mg/dL SCRN MAMM (CAD)W/LAVON BILATo n 01-29-2025 SCRN MAMM (CAD)W/LAVON BILAT [facility] Imaging Services [address] [place], [place] [address] SCRN MAMM (CAD)W/LAVON BILAT MR#: [id number] Acct: [id number] Name: CHRISTY FRANCIS Rep #: [id number] : 1950 F 74 From: Jyoti Cuenca PCP: Dr. Marielos Perla, DO Status: REG CLI Study: SCRN MAMM (CAD)W/LAVON BILAT Date of Exam: 01/17 07/11 Exam# [id number] Ordering Dr: Lamar Olivera SECURITY SHIFT SUPERVISOR SECURITY SHIFT SUPERVISOR -C EXAM: SCRN MAMM (CAD)W/LAVON BILAT DATE: [...] be mailed to the patient. Reading Location: [id number] CC: JOHNATHON Olivera; Dr. Marielos Perla DO Treasury Accountant: Signed Normal [facility] CTA Abd w/Runoff W/WO Contra ston 01-22-2025 CTA Abd w/Runoff W/WO Contrast [facility] Imaging Services [address], [place] [id number] CTA Abd w/Runoff W/WO Contrast MR#: [id number] Acct: [id number] Name: CHRISTY FRANCIS Rep #: [id number] : 1950 F 74 From: Dannie Olson MD PCP: Dr. Marielos Perla DO Status: REG CLI Study: CTA Abd w/Runoff W/WO Contrast Date of Exam: Exam# [id number] Ordering Dr: Ava Young PROCEDURE: CTA ABD [...] stenosis proximal left anterior tibial. Reading Location: [id number] CC: SKYLER Watson; Dr. Marielos Perla DO Treasury Accountant: Signed Normal [facility] L/S Spine Bending Flex/[place] 01-18-2025 L/S Spine Bending Flex/Ext [facility] Imaging Services [address] [place] [address] L/S Spine Bending Flex/Ext MR#: [id number] Acct: [id number] Name: CHRITSY FRANCIS Rep #: [id number] : 1950 F 74 From: Felisa Haines MD PCP: Dr. Marielos Perla DO Status: DEP AMB Study: L/S Spine Bending Flex/Ext Date of Exam: 01/18 Exam# [id number] Ordering Dr: Lidia Santiago PROCEDURE: L/S SPINE [...] Degenerative changes of the spine. Reading Location: [id number] CC: SKYLER Vance; Dr. Marielos Perla DO Treasury Accountant: Signed Normal [facility] Orthopedic Visit Reporton Orthopedic Visit Report [facility] Orthopedics [address] [place] [address] OFFICE VISIT Date of Service: 01/18/25 MR#: [id number] Acct: [id number] Name: CHRISTY FRANCIS Rep #: [id number] : 1950 Provider: SKYLER Vance Age/Sex: 74/F Location: [facility] Status: Signed Intake Vital Signs 01/07/25 16:04 [...] Mechanical loosening of prosthetic knee Atherosclerosis of [place] coronary artery of [place] heart without angina pectoris PAD (peripheral artery disease) HLD (hyperlipidemia) Type II diabetes mellitus Surgical History History of cholecystectomy History of coronary artery bypass graft x 3 ( 02/27/19) History of prosthetic unicompartmental arthroplasty of left knee Family History Mother Heart disease Social History current occupational status: retired current occupation: Retired. [employer]. Smoking Status: Light Smoker (<10/day) alcohol intake: current alcohol intake frequency: holidays/special occasions only substance use type: does not use caffeine: Yes Type: coffee Number of servings: 3 do you feel safe at home: Yes additional social history: . HPI LUMBAR SPINE Details: This documentation accurately reflects the service provided and the decisions made by me, SKYLER Vance 01/18/25 0927. Part of today???s visit [...] had rhianna (more content not included)... Normal [facility] Surgical pathology reportOrd ered By: Tammy Simmons on 01-12-2025 Surgical pathology study [facility] [facility] Web Production Manager Office Visit Reporton 01-10-2025 Web Production Manager Office Visit Report [facility]'[address], [address] [place] [address] OFFICE VISIT Date of Service: 01/10/25 MR#: [id number] Acct: [id number] Name: CHRISTY FRANCIS Rep #: [id number] : 1950 Provider: JOHNATHON haro Age/Sex: 74/F Location: [facility] Status: Signed Intake Vital Signs 11/02/24 10:17 01/07/25 16:04 01/10/25 10:46 Height 5 ft 2 in 5 ft 2 in 5 ft 2 in Weight: 167 lb BMI 30.5 BP 125/74 H Blood Pressure Location Rt brachial Position Sitting Pulse 98 Pulse Source Monitor Intake Visit Reasons: NU (CLAIRE) Marine Equipment Preservation Inspector Required: No Accompanied by: Self Is patient [...] Mechanical loosening of prosthetic knee Atherosclerosis of [place] coronary artery of [place] heart without angina pectoris PAD (peripheral artery disease) HLD (hyperlipidemia) Type II diabetes mellitus Surgical History History of cholecystectomy History of coronary artery bypass graft x 3 ( 02/27/19) History of prosthetic unicompartmental arthroplasty of left knee Family History Mother Heart disease Social History (Updated 01/10/25 @ 10:53 by Kaylen Medrano) current occupational status: retired current occupation: Retired. [employer]. Smoking Status: Light Smoker (<10/day) alcohol [...] Provider FOB [birth year] Germán HENDERSON [birth year] Jean-Claude [facility] ([place]) Details: CHRISTY FRANCIS is a 74 year old who (more content not included)... Normal [facility] Surgery Specimen Level Anthony 01-10-2025 Surgery Specimen Level IV Patient Age/Sex Location Account Attending Physician CHRISTY FRANCIS 74/F LABSPEC [id number] JOHNATHON Dos Santos Specimen: [id number] Received: 01/10/25 Status: LISBETH Sepulveda Num: [id number] Spec Type: ENDOM BX/C Subm Dr: JOHNATHON [...] pink-red tissue. Entirely submitted in 1 cassette. [place] 01/10/2025 CPT:63403 Patient Age/Sex Location Account Attending Physician CHRISTY FRANCIS 74/F LABSPEC [id number] JOHNATHON Dos Santos Signed (signature on file) Dr. Tammy Simmons MD 01/12/25 1526 Normal [facility] Comment on above: Performed By: #### P [place] ####[facility] [id number] [place], [place], [id number] 12 Lead EKGon 01-08-2025 12 Lead EKG [facility] Cardiovascular Services [address] [place] [address] 12 Lead EKG 01/08/25 0542 MR#: [id number] Acct: [id number] Name: CHRISTY FRANCIS Rep #: [id number] : 1950 74 From: Jorge Anderson MD Attending Dr: Dr. Rupali Lott DO Status: ADM I NO Ordering Dr: Maritza Suresh MD Date: 01/08/25 Location: [facility] Sex: F C Admitted: 01/07/25 Test [...] UNCONFIRMED Confirmed by MONICA ROMERO, JORGE ([id number]), order editor SHILPA VALENZUELA ([id number]) on 01/08/2025 10:31:37 AM Referred By: Confirmed By: JORGE ANDERSON MD 01/08/25 103 Date Jorge Anderson MD CC: Dr. Rupali Lott DO; Dr. Marielos Perla DO; Dr. Maritza Suresh MD Signed Normal [facility] Absolute lymphocyte countOrd ered By: Elena Bill on 01-08-2025 Lymphocytes Auto (Unsp spec) [#/Vol] 1.37 10*3/uL 0.83-4.51 [facility] Absolute neutrophil countOrd ered By: Elena Bill on 01-08-2025 Neutrophils (Bld) [#/Vol] 7.1 10*3/uL 2.0-7.7 [facility] Automated lymphocyte count a s percentage of total leukocytesOrdered By: Elena Bill on 01-08-2025 Lymphocytes/100 WBC Auto (Unsp spec) 13.2 % Low 19-41 [facility] Basophil percentageOrdered B y: Elena Bill on 01-08-2025 Basophils/100 WBC (Bld) 0.7 % 0-1 [facility] Bedside Glucoseon 01-08-2025 FINGERSTICK GLU 169 mg/dL High 74-106 [facility] Comment on above: Result Comment: GENARO ATKINSENT OF PATIENT CARE PER NURSING PROTOCOL Performed By: #### L 502.0250 #### [facility] Laboratory [address] [place], [address] FINGERSTICK GLU 189 mg/dL High 74-106 [facility] Comment on above: Result Comment: GENARO GEMENT OF PATIENT CARE PER NURSING PROTOCOL Performed By: #### L 501.080 ####[facility] [address] [place], [address] CBC W/Diff, Automatedon 12-19 Absolute Lymph 1.37 X10 3/uL Normal 0.83-4.51 [facility] Comment on above: Performed By: #### L 100.0100 #### [facility] Laboratory [address] [place], [address] Absolute Neut 7.1 X10 3/uL Normal 2.0-7.7 [facility] Comment on above: Performed By: #### L 100.0100 #### [facility] Laboratory [address] [place], [address] Basophils/100 WBC (Bld) 0.7 % Normal 0-1 [facility] Comment on above: Performed By: #### L 100.0100 #### [facility] Laboratory [address] [place], [address] Eosinophils/100 WBC (Bld) 6.3 % High 0-5 [facility] Comment on above: Performed By: #### L 100.0100 #### [facility] Laboratory [address] [place], [address] Erythrocyte distribution width (RBC) [Ratio] 15.0 % High 11.6-14.6 [facility] Comment on above: Performed By: #### L 100.0100 #### [facility] Laboratory [address] [place], [address] Hematocrit (Bld) [Volume fraction] 37.3 % Normal 37-47 [facility] Comment on above: Performed By: #### L 100.0100 #### [facility] Laboratory [address] [place], [address] Hemoglobin (Bld) [Mass/Vol] 12.2 g/dL Normal 12.0-15.0 [facility] Comment on above: Performed By: #### L 100.0100 #### [facility] Laboratory [address] [place], [address] IG% 0.500 Normal 0.0-0.9 [facility] Comment on above: Result Comment: IG% - Immature Granulocytes (promyelocytes, myelocytes and metamyelocytes) > 1% indicates that a LEFT SHIFT is Present. Performed By: #### L 100.0100 #### [facility] Laboratory [address] [place], [address] Lymphocytes/100 WBC (Bld) 13.2 % Low 19-41 [facility] Comment on above: Performed By: #### L 100.0100 #### [facility] Laboratory [address] [place], [address] MCH (RBC) [Entitic mass] 30.6 pg Normal 27.0-32.0 [facility] Comment on above: Performed By: #### L 100.0100 #### [facility] Laboratory [address] [place], [address] MCHC (RBC) [Mass/Vol] 32.7 g/dL Normal 32-36 [facility] Comment on above: Performed By: #### L 100.0100 #### [facility] Laboratory [address] [place], [address] MCV (RBC) [Entitic vol] 93.5 fL Normal 81-99 [facility] Comment on above: Performed By: #### L 100.0100 #### [facility] Laboratory [address] [place], [address] Monocytes/100 WBC (Bld) 10.8 % High 0-10 [facility] Comment on above: Performed By: #### L 100.0100 #### [facility] Laboratory [address] [place], [address] Neutrophils/100 WBC (Bld) 68.5 % Normal 47-70 [facility] Comment on above: Performed By: #### L 100.0100 #### [facility] Laboratory [facility] [place], [address] Nucleated RBC (Bld) [#/Vol] 0 10*3/uL Normal 0-5 [facility] Comment on above: Performed By: #### L 100.0100 #### [facility] Laboratory [address] [place], [address] Platelet mean volume (Bld) [Entitic vol] 11.0 fL Normal 6.2-12.0 [facility] Comment on above: Performed By: #### L 100.0100 #### [facility] Laboratory [address] [place], [address] Platelets (Bld) [#/Vol] 282 10*3/uL Normal 150-450 [facility] Comment on above: Performed By: #### L 100.0100 #### [facility] Laboratory [facility] [place], [address] RBC (Bld) [#/Vol] 3.99 10*6/uL Low 4.2-5.4 [facility] Comment on above: Performed By: #### L 100.0100 #### [facility] Laboratory [address] [place], [address] RDW SD 51.2 fl High 35.1-43.9 [facility] Comment on above: Performed By: #### L 100.0100 #### [facility] Laboratory [address] [place], [address] WBC (Bld) [#/Vol] 10.4 10*3/uL Normal 4.4-11.0 [facility] Comment on above: Performed By: #### L 100.0100 #### [facility] Laboratory [address] [place], [address] Cardiac Cath Diagnosticon Cardiac Cath Diagnostic [facility] Imaging Services [address] [place] [address] Cardiac Cath Diagnostic MR#: [id number] Acct: [id number] Name: CHRISTY FRANCIS Rep #: [id number] : 1950 74 From: Jorge Anderson MD PCP: Dr. Marielos Perla, DO Status:ADM BRIAN Patient Name: CHRISTY FRANCIS Study Date: 01/08/2025 Performing: Jorge Anderson MD Ht: 62 inches 157.48 cm : 1950 Wt: 165.8 lbs 75.1 kg Age: 74 Gender: female BSA: 1.76 PROCEDURE(S) PERFORMED DC04-(02602)LHC/COR/CABG CLINICAL PROFILE AND INDICATIONS Indications: Worsening Angina [...] Dictated: 01/08/25 1222 Date Transcribed: 01/08/25 1306 Treasury Accountant: [place] Signed Normal [facility] Cardiac catheterization repo rtOrdered By: Jorge Anderson on 01-08-2025 Cardiac catheterization study [facility] Imaging Services [address] [place] [address] Cardiac Cath Diagnostic MR#: [id number] Acct: [id number] Name: CHRISTY FRANCIS Rep #:[id number] : 1950 74 From: Jorge Anderson MD PCP: Dr. Marielos Perla DO Status:ADM BRIAN Patient Name: CHRISTY FRANCIS Study Date: 01/08/2025 Performing: Jorge Anderson MD Ht: 62 inches 157.48 cm : 1950 Wt: 165.8 lbs 75.1 kg Age: 74 Gender: female BSA: 1.76 PROCEDURE(S) PERFORMED DC04-(97026)LHC/COR/CABG CLINICAL PROFILE AND INDICATIONS Indications: Worsening Angina [...] Dictated: 01/08/25 1222 Date Transcribed: 01/08/25 1306 Treasury Accountant: [place] Signed [facility] Work Phone: Consultation - Cardiologyon 01-08-2025 Consultation - Cardiology [facility] Medical Records Department [address] [place] [address] Consultation - Cardiology 01/08/25 0652 MR#: [id number] Acct: [id number] Name: GALILEOCHRISTY S Rep #: [id number] : 1950 74 From: Jorge Anderson MD PCP: Dr. Marielos Perla DO Status:DIS BRIAN Location: [place] [address] Assessment Plan Assessment/Plan (1) Chest pain: PLAN: [...] to the obtuse marginal branch was occluded. [facility] Medical History Severe left ventricular systolic dysfunction (LVSD) Palpitations Right rotator cuff tear Trigger finger of both hands Carpal tunnel syndrome on both sides FHx: cholecystectomy History of left heart catheterization (LHC) ( 06/03/21) Essential hypertension Mechanical loosening of prosthetic knee Atherosclerosis of [place] coronary artery of [place] heart without angina pectoris PAD (peripheral artery [...] Status D (more content not included)... Normal [facility] Electrocardiogram reportOrde red By: Jorge Anderson on 01-08-2025 EKG study [facility] Cardiovascular Services [address] [place] [address] 12 Lead EKG 01/07/25 1623 MR#: [id number] Acct: [id number] Name: CHRISTY FRANCIS Rep #:[id number] : 1950 74 From: Jorge Anderson MD [...] IS UNCONFIRMED Confirmed by JORGE ANDERSON MD ([id number]), order editor SHILPA VALENZUELA ([id number]) on 01/08/2025 10:32:10 AM Referred By: SATHYA Confirmed By: JORGE ANDERSON MD 01/08/25 103 Date _ Jorge Anderson MD CC: Dr. Rupali Lott DO; Dr. Marielos Perla DO; Dr. Maritza Suresh MD ~ Signed [facility] Work Phone: EKG study [facility] Cardiovascular Services [address] [place] [address] 12 Lead EKG 01/08/25 0542 MR#: [id number] Acct: [id number] Name: CHRISTY FRANCIS Rep #:[id number] : 1950 74 From: Jorge Anderson MD Attending Dr: DO Charis Ernandez tatus: ADM BRIAN Ordering Dr: Maritza Suresh MD Date: 01/08/25 Location: [facility] Sex: F C Admitted: 01/07/25 Test [...] IS UNCONFIRMED Confirmed by JORGE ANDERSON MD ([id number]), order editor SHILPA VALENZUELA ([id number]) on 01/08/2025 10:31:37 AM Referred By: Confirmed By: JORGE ANDERSON MD 01/08/25 1031 Date _ Jorge Anderson MD CC: Dr. Rupali Lott DO; Dr. Marielos Perla DO; Dr. Maritza Suresh MD ~ Signed [facility] Work Phone: EKG study [facility] Cardiovascular Services [address] [place] [address] 12 Lead EKG 01/07/25 1234 MR#: [id number] Acct: [id number] Name: CHRISTY FRANCIS Rep #:[id number] : 1950 74 From: Jorge Anderson MD Attending Dr: Dr. Rupali Lott DO S tatus: ADM BRIAN Ordering Dr: Elena Bill MD Date: Location: [facility] Sex: F C Admitted: 01/07/25 Test Reason : AR/ER Blood Pressure : */* mmHG Vent. Rate : 99 BPM Atrial Rate : 99 BPM P-R Int : 152 ms QRS Dur : 72 ms QT Int : 332 ms P-R-T Axes : 59 -4 83 degrees QTcB Int : 426 ms Normal sinus rhythm Normal ECG Confirmed by MONICA ROMERO, JORGE ([id number]), order editor SHILPA VALENZUELA ([id number]) on 01/08/2025 7:56:38 AM Referred By: Confirmed By: JORGE ANDERSON MD 01/08/25 0756 Date _ Jorge Anderson MD CC: Dr. Elena Bill MD; Dr. Rupali Lott DO; Dr. Marielos Perla DO ~ Signed [facility] Work Phone: [phone] Eosinophil percentageOrdered By: Elena Bill on 01-08-2025 Eosinophils/100 WBC (Bld) 6.3 % High 0-5 [facility] Erythrocyte distribution wid th ratioOrdered By: Elena Bill on 01-08-2025 Erythrocyte distribution width (RBC) [Ratio] 15.0 % High 11.6-14.6 [facility] Erythrocyte distribution wid th standard deviationOrdered By: Elena Bill on 01-08-2025 Erythrocyte distribution width (RBC) [Ratio] 51.2 fl High 35.1-43.9 [facility] Glucose measurement at bedsi deOrdered By: Rupali Lott on 01-08-2025 Glucose [Mass/Vol] 169 mg/dL High 74-106 [facility] Comment on above: MANAGEMENT OF PATIEN T CARE PER NURSING PROTOCOL Hematocrit Auto (Bld) [Volum e fraction]Ordered By: Elena Bill on 01-08-2025 Hematocrit (Bld) [Volume fraction] 37.3 % 37-47 [facility] Hemoglobin measurementOrdere d By: Elena Bill on 01-08-2025 Hemoglobin (Bld) [Mass/Vol] 12.2 g/dL 12.0-15.0 [facility] Immature granulocytes/100 WB C Auto (Bld)Ordered By: Elena Bill on 01-08-2025 Immature granulocytes/100 WBC (Bld) 0.500 % 0.0-0.9 [facility] Comment on above: IG% - Immature Granu locytes (promyelocytes, myelocytes and metamyelocytes) > 1% indicates that a LEFT SHIFT is Present. MCV (mean corpuscular volume ) determinationOrdered By: Elena Bill on 01-08-2025 MCV (RBC) [Entitic vol] 93.5 fL 81-99 [facility] Mean corpuscular hemoglobin (MCH) determinationOrdered By: Elena Bill on 01-08-2025 MCH (RBC) [Entitic mass] 30.6 pg 27.0-32.0 [facility] Mean corpuscular hemoglobin concentration (MCHC) determinationOrdered By: Elena Bill on 01-08-2025 MCHC (RBC) [Mass/Vol] 32.7 g/dL 32-36 [facility] Mean platelet volume determi nationOrdered By: Elena Bill on 01-08-2025 Platelet mean volume (Bld) [Entitic vol] 11.0 fL 6.2-12.0 [facility] Monocyte percentageOrdered B y: Elena Bill on 01-08-2025 Monocytes/100 WBC (Bld) 10.8 % High 0-10 [facility] Neutrophil percentageOrdered By: Elena Bill on 01-08-2025 Neutrophils/100 WBC (Bld) 68.5 % 47-70 [facility] Nucleated red blood cell per centageOrdered By: Elena Bill on 01-08-2025 Nucleated RBC/100 WBC (Bld) [Ratio] 0 % 0-5 [facility] Platelet countOrdered By: Tomasz Bill on 01-08-2025 Platelets (Bld) [#/Vol] 282 10*3/uL 150-450 [facility] RBC Auto (Bld) [#/Vol]Ordere d By: Elena Bill on 01-08-2025 RBC (Bld) [#/Vol] 3.99 10*6/uL Low 4.2-5.4 [facility] White blood cell (WBC) count Ordered By: Elena Bill on 01-08-2025 WBC (Bld) [#/Vol] 10.4 10*3/uL 4.4-11.0 [facility] 12 Lead EKGon 01-07-2025 12 Lead EKG [facility] Cardiovascular Services [address] [place] [address] 12 Lead EKG 01/07/25 1623 MR#: [id number] Acct: [id number] Name: CHRISTY FRANCIS Rep #: [id number] : 1950 74 From: Jorge Anderson MD Attending Dr: Dr. Rupali Lott, DO Status: ADM I NO Ordering Dr: Maritza Suresh MD Date: 01/07/25 Location: [facility] Sex: F C Admitted: 01/07/25 Test [...] UNCONFIRMED Confirmed by MONICA ROMERO, JORGE ([id number]), order editor SHILPA VALENZUELA ([id number]) on 01/08/2025 10:32:10 AM Referred By: SATHYA Confirmed By: JORGE ANDERSON MD 01/08/25 1032 Date Jorge Anderson MD CC: Dr. Rupali Lott DO; Dr. Marielos Perla DO; Dr. Maritza Suresh MD Signed [facility] 12 Lead EKG [facility] Cardiovascular Services [address] [place] [address] 12 Lead EKG 01/07/25 1234 MR#: [id number] Acct: [id number] Name: CHRISTY FRANCIS Rep #: [id number] : 1950 74 From: Jorge Anderson MD Attending Dr: Dr. Rupali Lott DO Status: ADM I NO Ordering Dr: Elena Bill MD Date: 01/07/25 Location: [facility] Sex: F C Admitted: 01/07/25 Test Reason : AR/ER Blood Pressure : */* mmHG Vent. Rate : 99 BPM Atrial Rate : 99 BPM P-R Int : 152 ms QRS Dur : 72 ms QT Int : 332 ms P-R-T Axes : 59 -4 83 degrees QTcB Int : 426 ms Normal sinus rhythm Normal ECG Confirmed by JORGE ANDERSON MD ([id number]), order editor SHILPA VALENZUELA ([id number]) on 01/08/2025 7:56:38 AM Referred By: Confirmed By: JORGE ANDERSON MD 01/08/25 0756 Date Jorge Anderson MD CC: Dr. Elena Bill MD; Dr. Rupali Lott DO; Dr. Marielos Perla DO Signed [facility] Activated partial thrombopla stin time (aPTT) in platelet poor plasma by coagulation aOrdered By: Elena Bill on 01-07-2025 aPTT Coag (PPP) [Time] 26.9 s 24.1-36.2 [facility] Anion gap in Serum or Plasma Ordered By: Elenaomar Bill on 01-07-2025 Anion gap [Moles/Vol] 13 mmol/L 5-15 [facility] BUN/creatinine ratioOrdered By: Elena Bill on 01-07-2025 Urea nitrogen/Creatinine [Mass ratio] 22.7 mg/mg High 10- [facility] Basic Metabolic Profile (BMP )on 01-07-2025 BUN/CRE 22.7 RATIO High - [facility] Comment on above: Performed By: #### L 502.0250 #### [facility] Laboratory [address] [place], [address] Calcium [Mass/Vol] 9.5 mg/dL Normal 7.6-11.0 [facility] Comment on above: Performed By: #### L 502.0250 #### [facility] Laboratory [address] [place], [address] Chloride [Moles/Vol] 99 mmol/L Normal 98-108 [facility] Comment on above: Performed By: #### L 502.0250 #### [facility] Laboratory [address] [place], [address] CO2 [Moles/Vol] 25.3 mmol/L Normal 21.0-32.0 [facility] Comment on above: Performed By: #### L 502.0250 #### [facility] Laboratory [address] [place], [address] Creatinine [Mass/Vol] 1.26 mg/dL High 0.70-1.20 [facility] Comment on above: Performed By: #### L 502.0250 #### [facility] Laboratory [address] [place], [address] ECRCL 37.37 ml/min Low 50-250 [facility] Comment on above: Performed By: #### L 502.0250 #### [facility] Laboratory [address] [place], [address] GAP 13 Normal 5-15 [facility] Comment on above: Performed By: #### L 502.0250 #### [facility] Laboratory [address] [place], [address] GFR/1.73 sq M.predicted among non-blacks MDRD (S/P/Bld) [Vol rate/Area] 45 mL/min/{1.73_m2} Low >60 [facility] Comment on above: Result Comment: mL/m in/1.73m2 CKD-EPI Creatinine Equation (2020) Performed By: #### L 502.0250 #### [facility] Laboratory [address] [place], [address] Glucose [Mass/Vol] 186 mg/dL High 70-99 [facility] Comment on above: Performed By: #### L 502.0250 #### [facility] Laboratory [address] [place], [address] Potassium [Moles/Vol] 4.0 mmol/L Normal 3.3-5.1 [facility] Comment on above: Performed By: #### L 502.0250 #### [facility] Laboratory [address] [place], [address] Sodium [Moles/Vol] 138 mmol/L Normal 133-145 [facility] Comment on above: Performed By: #### L 502.0250 #### [facility] Laboratory [address] [place], [address] Urea nitrogen [Mass/Vol] 29 mg/dL High 4-19 [facility] Comment on above: Performed By: #### L 502.0250 #### [facility] Laboratory [address] [place], [address] Bedside Glucoseon 01-07-2025 FINGERSTICK GLU 194 mg/dL High 74-106 [facility] Comment on above: Result Comment: GENARO DANG OF PATIENT CARE PER NURSING PROTOCOL Performed By: #### L 501.080 ####[facility] [address] [place], [address] CBC W/Diff, Automatedon 09- Absolute Lymph 1.76 X10 3/uL Normal 0.83-4.51 [facility] Comment on above: Performed By: #### L 502.0250 #### [facility] Laboratory [address] [place], [address] Absolute Neut 8.4 X10 3/uL High 2.0-7.7 [facility] Comment on above: Performed By: #### L 502.0250 #### [facility] Laboratory [address] [place], [address] Basophils/100 WBC (Bld) 0.6 % Normal 0-1 [facility] Comment on above: Performed By: #### L 502.0250 #### [facility] Laboratory [address] [place], [address] Eosinophils/100 WBC (Bld) 5.2 % High 0-5 [facility] Comment on above: Performed By: #### L 502.0250 #### [facility] Laboratory [address] [place], [address] Erythrocyte distribution width (RBC) [Ratio] 15.2 % High 11.6-14.6 [facility] [facility] Comment on above: Performed By: #### L 502.0250 #### [facility] [address] [place], [address] Hematocrit (Bld) [Volume fraction] 40.1 % Normal 37-47 [facility] Comment on above: Performed By: #### L 502.0250 #### [facility] [address] [place], [address] Hemoglobin (Bld) [Mass/Vol] 13.4 g/dL Normal 12.0-15.0 [facility] Comment on above: Performed By: #### L 502.0250 #### [facility] [address] [place], [address] IG% 0.300 Normal 0.0-0.9 [facility] Comment on above: Result Comment: IG% - Immature Granulocytes (promyelocytes, myelocytes and metamyelocytes) > 1% indicates that a LEFT SHIFT is Present. Performed By: #### L 502.0250 #### [facility] [address] [place], [address] Lymphocytes/100 WBC (Bld) 14.8 % Low 19-41 [facility] Comment on above: Performed By: #### L 502.0250 #### [facility] [address] [place], [address] MCH (RBC) [Entitic mass] 31.8 pg Normal 27.0-32.0 [facility] Comment on above: Performed By: #### L 502.0250 #### [facility] [address] [place], [address] MCHC (RBC) [Mass/Vol] 33.4 g/dL Normal 32-36 [facility] Comment on above: Performed By: #### L 502.0250 #### [facility] [address] [place], [address] MCV (RBC) [Entitic vol] 95.0 fL Normal 81-99 [facility] Comment on above: Performed By: #### L 502.0250 #### [facility] [address] [place], [address] Monocytes/100 WBC (Bld) 9.1 % Normal 0-10 [facility] Comment on above: Performed By: #### L 502.0250 #### [facility] [address] [place], [address] Neutrophils/100 WBC (Bld) 70.0 % Normal 47-70 [facility] Comment on above: Performed By: #### L 502.0250 #### [facility] [address] [place], [address] Nucleated RBC (Bld) [#/Vol] 0 10*3/uL Normal 0-5 [facility] Comment on above: Performed By: #### L 502.0250 #### [facility] [address] [place], [address] Platelet mean volume (Bld) [Entitic vol] 11.0 fL Normal 6.2-12.0 [facility] Comment on above: Performed By: #### L 502.0250 #### [facility] [address] [place], [address] Platelets (Bld) [#/Vol] 312 10*3/uL Normal 150-450 [facility] Comment on above: Performed By: #### L 502.0250 #### [facility] [address] [place], [address] RBC (Bld) [#/Vol] 4.22 10*6/uL Normal 4.2-5.4 [facility] Comment on above: Performed By: #### L 502.0250 #### [facility] [address] [place], [address] RDW SD 53.1 fl High 35.1-43.9 [facility] Comment on above: Performed By: #### L 502.0250 #### [facility] [address] [place], [address] WBC (Bld) [#/Vol] 11.9 10*3/uL High 4.4-11.0 [facility] Comment on above: Performed By: #### L 502.0250 #### [facility] [address] [place], [address] Absolute Neut Normal 2.0-7.7 [facility] Comment on above: Order Comment: Comme nts: If not done in prior 24 hours Result Comment: DUPL ICATE ORDER. Performed By: #### L 500.4100, L500.3400 #### [facility] [address] [place], [address] HCT Normal 37-47 [facility] Comment on above: Order Comment: Comme nts: If not done in prior 24 hours Result Comment: DUPL ICATE ORDER. Performed By: #### L 500.4100, L500.3400 #### [facility] [address] [place], [address] HGB Normal 12.0-15.0 [facility] Comment on above: Order Comment: Comme nts: If not done in prior 24 hours Result Comment: DUPL ICATE ORDER. Performed By: #### L 500.4100, L500.3400 #### [facility] [address] [place], [address] MCH Normal 27.0-32.0 [facility] Comment on above: Order Comment: Comme nts: If not done in prior 24 hours Result Comment: DUPL ICATE ORDER. Performed By: #### L 500.4100, L500.3400 #### [facility] [address] [place], [address] MCHC Normal 32-36 [facility] Comment on above: Order Comment: Comme nts: If not done in prior 24 hours Result Comment: DUPL ICATE ORDER. Performed By: #### L 500.4100, L500.3400 #### [facility] [address] [place], [address] MCV Normal 81-99 [facility] Comment on above: Order Comment: Comme nts: If not done in prior 24 hours Result Comment: DUPL ICATE ORDER. Performed By: #### L 500.4100, L500.3400 #### [facility] [address] [place], [address] NEUT% Normal 47-70 [facility] Comment on above: Order Comment: Comme nts: If not done in prior 24 hours Result Comment: DUPL ICATE ORDER. Performed By: #### L 500.4100, L500.3400 #### [facility] [address] [place], [address] PLT Normal 150-450 [facility] Comment on above: Order Comment: Comme nts: If not done in prior 24 hours Result Comment: DUPL ICATE ORDER. Performed By: #### L 500.4100, L500.3400 #### [facility] [address] [place], [address] RBC Normal 4.2-5.4 [facility] Comment on above: Order Comment: Comme nts: If not done in prior 24 hours Result Comment: DUPL ICATE ORDER. Performed By: #### L 500.4100, L500.3400 #### [facility] [address] [place], [address] RDW CV Normal 11.6-14.6 [facility] Comment on above: Order Comment: Comme nts: If not done in prior 24 hours Result Comment: DUPL ICATE ORDER. Performed By: #### L 500.4100, L500.3400 #### [facility] [address] [place], [address] RDW SD Normal 35.1-43.9 [facility] Comment on above: Order Comment: Comme nts: If not done in prior 24 hours Result Comment: DUPL ICATE ORDER. Performed By: #### L 500.4100, L500.3400 #### [facility] [address] [place], [address] WBC Normal 4.4-11.0 [facility] Comment on above: Order Comment: Comme nts: If not done in prior 24 hours Result Comment: DUPL ICATE ORDER. Performed By: #### L 500.4100, L500.3400 #### [facility] [address] [place], [place], [address] CTA Chest W/WO Contraston CTA Chest W/WO Contrast [facility] Imaging Services [address] [place] [address] CTA Chest W/WO Contrast MR#: [id number] Acct: [id number] Name: CHRISTY FRANCIS Rep #: [id number] : 1950 F 74 From: Thee Ignacio MD PCP: Dr. Marielos Perla DO Status: [facility] ER Study: CTA Chest W/WO Contrast Date of Exam: 01/07/25 Exam# [id number] Ordering Dr: Elena Bill MD PROCEDURE: CTA [...] Contrast IMPRESSION: No significant abnormality Reading Location: [facility] CC: Dr. Elena Bill MD; Dr. Marielos Perla DO Treasury Accountant: Signed Normal [facility] Carbon dioxide, total [Moles /volume] in Central venous bloodOrdered By: Elena Bill on 09-21-2025 CO2 [Moles/Vol] 25.3 mmol/L 21.0-32.0 [facility] Chest PA and Lateralon 01-07 Chest PA and Lateral [facility] Imaging Services [address] [place] [address] Chest PA and Lateral MR#: [id number] Acct: [id number] Name: CHRISTY FRANCIS Rep #: [id number] : 1950 F 74 From: Felisa Haines MD PCP: Dr. Marielos Perla DO Status: REG ER Study: Chest PA and Lateral Date of Exam: 01/07/25 Exam# [id number] Ordering Dr: Elena Bill MD PROCEDURE: CHEST [...] Lateral IMPRESSION: NO ACUTE FINDINGS. Reading Location: [facility] CC: Dr. Elena Bill MD; Dr. Marielos Perla DO Treasury Accountant: Signed Normal [facility] Chloride assayOrdered By: Tomasz Bill on 01-07-2025 Chloride [Moles/Vol] 99 mmol/L 98-108 [facility] D-Dimer Quantitative (DVT/PE )on 01-07-2025 D-DIMER QUANT 0.83 FEU/ug/m Invalid Interpretation Code 0.27-0.49 [facility] Comment on above: Result Comment: CRIT ICAL VALUE CALLED TO Dedra DIXON 01/07/25 1321 Lalita Temple. RESULTS READ BACK BY SAME. D-Dimer ELEVATED (>0.49): Additional studies and clinical assessments are indicated to conclude diagnosis of: Deep Vein Thrombosis (DVT) or Pulmonary Embolism (PE) Performed By: #### L 502.0250 #### [facility] [address] [place], [address] Emergency Department Summary on 01-07-2025 Emergency Department Summary [facility] Medical Records Department [address] [place] [address] Emergency Department Summary 01/07/25 MR#: [id number] Acct: [id number] Name: CHRISTY FRANCIS Rep #: [id number] : 1950 74 From: Elena Bill MD PCP: Dr. Marielos Perla, DO Status:REG ER Location: ED HPI History of Present Illness Chief Complaint: Chest Pain Narrative Narrative: Patient is a 74-year-old female presenting to the emergency department for chest pain that started around 9 AM this morning. Patient has a past medical history of a CABG in 2019 at [facility], palpitations, hypertension, hyperlipidemia, type 2 [...] baby aspirin this morning prior to coming. [facility] Medical History Severe left ventricular systolic dysfunction (LVSD) Palpitations Right rotator cuff tear Trigger finger of both hands Carpal tunnel syndrome on both sides FHx: cholecystectomy History of left heart catheterization (LHC) ( 06/03/21) Essential hypertension Mechanical loosening of prosthetic knee Atherosclerosis of [place] coronary artery of [place] heart without angina pectoris PAD (peripheral artery [...] and sym (more content not included)... Normal [facility] Glomerular filtration rate ( GFR) estimation/1.73 sq m using serum, plasma, or whole bOrdered By: Elena Bill on 01-07-2025 GFR/1.73 sq M.predicted among non-blacks MDRD (S/P/Bld) [Vol rate/Area] 45 mL/min/{1.73_m2} Low >60 [facility] Comment on above: mL/min/1.73m2 CKD-EP I Creatinine Equation (2020) H AND P Exam - [facility] 01-07-2025 H&P Exam - Hospitalist [facility] Medical Records Department [address] [place] [address] H P Exam - Hospitalist 01/07/25 1436 MR#: [id number] Acct: [id number] Name: CHRISTY FRANCIS Rep #: [id number] : 1950 74 From: Maritza Suresh MD PCP: Dr. Marielos Perla, DO Status:ADM BRIAN Location: [place] [address] HPI - General General Date of Admission: [...] a history of CABG in 2019 at [facility] as well as peripheral artery disease, hyperlipidemia and type 2 diabetes mellitus. She also admitted to [facility] several weeks prior to admission. [...] managed for chest pain rule out ACS. [facility] Medical History Severe left ventricular systolic dysfunction (LVSD) Palpitations Right rotator cuff tear Trigger finger of both hands Carpal tunnel syndrome on both sides FHx: cholecystectomy History of left heart catheterization (LHC) ( 06/03/21) Essential hypertension Mechanical loosening of prosthetic knee Atherosclerosis of [place] coronary artery of [place] heart without angina pectoris PAD (peripheral artery [...] frequency: hol (more content not included)... Normal [facility] International normalized rat io (INR) calculationOrdered By: Elena Bill on 01-07-2025 INR Coag (Bld) [Relative time] 1.1 {INR} [facility] L501.4021on 01-07-2025 Trop T High Sen 27 ng/L High <=14 [facility] Comment on above: Performed By: #### L 500.4100, L500.3400 #### [facility] [address] [place], [address] Partial Thromboplast Timeon 01-07-2025 aPTT Coag (Bld) [Time] 26.9 s Normal 24.1-36.2 [facility] Comment on above: Order Comment: Comme nts: If not done in prior 24 hours Performed By: #### L 500.4100, L500.3400 #### [facility] [address] [place], [address] Potassium measurement (mass/ volume)Ordered By: Elena Bill on 01-07-2025 Potassium (Unsp spec) [Mass/Vol] 4.0 mmol/L 3.3-5.1 [facility] Prothrombin Time w/INRon INR Coag (PPP) [Relative time] 1.1 {INR} Normal [facility] Comment on above: Order Comment: Comme nts: If not done in prior 24 hours Performed By: #### L 500.4100, L500.3400 #### [facility] [address] [place], [address] PT Coag (PPP) [Time] 14.2 s Normal 11.7-14.9 [facility] Comment on above: Order Comment: Comme nts: If not done in prior 24 hours Performed By: #### L 500.4100, L500.3400 #### [facility] [address] [place], [place], [address] Prothrombin timeOrdered By: Elena Bill on 01-07-2025 PT Coag (PPP) [Time] 14.2 s 11.7-14.9 [facility] Serum creatinine measurement (mass/volume)Ordered By: Elena Bill on 01-07-2025 Creatinine [Mass/Vol] 1.26 mg/dL High 0.70-1.20 [facility] Serum glucose measurement (m ass/volume)Ordered By: Elena Bill on 01-07-2025 Glucose [Mass/Vol] 186 mg/dL High 70-99 [facility] Serum or plasma calcium shannon urement (mass/volume)Ordered By: Elena Bill on 01-07-2025 Calcium [Mass/Vol] 9.5 mg/dL 7.6-11.0 [facility] Serum or plasma urea nitroge n measurement (mass/volume)Ordered By: Elena Bill on 01-07-2025 Urea nitrogen [Mass/Vol] 29 mg/dL High 4-19 [facility] Sodium levelOrdered By: Grant Bill on 01-07-2025 Sodium [Moles/Vol] 138 mmol/L 133-145 [facility] Troponin T HS 2 HRon 025 Trop T High Sen 28 ng/L High <=14 [facility] Comment on above: Performed By: #### L 499.0042 #### [facility] [address] [place], [place], [address] Troponin T HS 4 HRon 025 Trop T High Sen 27 ng/L High <=14 [facility] Comment on above: Performed By: #### L 500.4100, L500.3400 #### [facility] [address] [place], [place], [address] Troponin T.cardiac [Mass/vol ume] in Serum or Plasma by High sensitivity methodOrdered By: Elena Bill on 01-07-2025 Troponin T.cardiac High sensitivity method [Mass/Vol] 27 ng/L High <14 [facility] Troponin T.cardiac High sensitivity method [Mass/Vol] 28 ng/L High <14 [facility] Troponin T.cardiac High sensitivity method [Mass/Vol] 27 ng/L High <14 [facility] MR/BMS.Son 01-03-2025 MR/BMS.BVS [facility] [address] [place] [address] OFFICE VISIT Date of Service: 01/03/25 MR#: [id number] Acct: [id number] Name: CHRISTY FRANCIS Rep #: [id number] : 1950 Provider: SKYLER Watson Age/Sex: 74/F Location: [facility] Status: Signed Intake Vital Signs 11/02/24 [...] Mechanical loosening of prosthetic knee Atherosclerosis of [place] coronary artery of [place] heart without angina pectoris PAD (peripheral artery [...] of we (more content not included)... Normal [facility] Arterial study reportOrdered By: Grant Torres on 12-25-2024 Noninvasive arteriosclerosis study report [facility] Cardiovascular Services [address] [place] [address] Lower Ext Art Exam w/ Exercise 12/22/24 0956 MR#: [id number] Acct: [id number] Name: CHRISTY FRANCIS Rep #:[id number] : 1950 74 From: Grant Mendez Attending [...] Date Dictated: 12/22/2456 Date Transcribed: 12/25/24 1238 Treasury Accountant: Signed [facility] Work Phone: Lower Ext Art Exam w/ Exerci mai 12-22-2024 Lower Ext Art Exam w/ Exercise [facility] [place] [address] Lower Ext Art Exam w/ Exercise 12/22/24 0956 MR#: [id number] Acct: [id number] Name: CHRISTY FRANCIS Rep #: [id number] : 1950 74 From: Grant Torres MD Attending Dr: SKYLER Watson Status: REG CLI Ordering Dr: Ava Young Date: 12/22/24 Location: [facility] Sex: F C Admitted: Reason For [...] Date Dictated: 12/22/2456 Date Transcribed: 12/25/24 1238 Treasury Accountant: Signed Normal [facility] Lumbar Spine 2 or 3 Viewson 12-22-2024 Lumbar Spine 2 or 3 Views [facility] Imaging Services [address] [place], [place] [address] Lumbar Spine 2 or 3 Views MR#: [id number] Acct: [id number] Name: CHRISTY FRANCIS Rep #: [id number] : 1950 F 74 From: Ted Bullock MD PCP: Dr. Marielos Perla, Status: REG CLI Study: Lumbar Spine 2 or 3 Views Date of Exam: Exam# [id number] Ordering Dr: Ava Young EXAM: XR Lumbosacral [...] changes lumbar spine as described. Reading Location: [facility] CC: SKYLER Watson; Dr. Marielos Perla DO Treasury Accountant: Signed Normal [facility] MR/BMS.BVSon 12-12-2024 MR/BMS.BVS [facility] Surgery [address] [place] [address] OFFICE VISIT Date of Service: 12/12/24 MR#: [id number] Acct: [id number] Name: CHRISTY FRANCIS Rep #: [id number] : 1950 Provider: SKYLER Watson Age/Sex: 74/F Location: [facility] Status: Signed Intake Vital Signs 11/02/24 10:17 [...] Mechanical loosening of prosthetic knee Atherosclerosis of [place] coronary artery of [place] heart without angina pectoris PAD (peripheral artery [...] accompanied to her appointment today by her plrttahk-my-hmd Lynda who is an RN and helps [...] her k (more content not included)... Normal [facility] Anion gap in Serum or Plasma Ordered By: Jennifer Bailey on 12-06-2024 Anion gap [Moles/Vol] 14 mmol/L 5- [facility] BUN/creatinine ratioOrdered By: Jennifer Bailey on 12-06-2024 Urea nitrogen/Creatinine [Mass ratio] 22.5 mg/mg High 02-05 [facility] Basic Metabolic Profile (BMP )on 12-06-2024 BUN/CRE 22.5 RATIO High 02-05 [facility] Comment on above: Performed By: #### L 500.2500 #### [facility] [address] [place], [address] Calcium [Mass/Vol] 9.5 mg/dL Normal 7.6-11.0 [facility] Comment on above: Performed By: #### L 500.2500 #### [facility] [address] [place], [address] Chloride [Moles/Vol] 98 mmol/L Normal 98-108 [facility] Comment on above: Performed By: #### L 500.2500 #### [facility] [address] [place], [address] CO2 [Moles/Vol] 26.5 mmol/L Normal 21.0-32.0 [facility] Comment on above: Performed By: #### L 500.2500 #### [facility] [address] [place], [address] Creatinine [Mass/Vol] 1.42 mg/dL High 0.70-1.20 [facility] Comment on above: Performed By: #### L 500.2500 #### [facility] [address] [place], [address] GAP 14 Normal 5-15 [facility] Comment on above: Performed By: #### L 500.2500 #### [facility] [address] [place], [address] GFR/1.73 sq M.predicted among non-blacks MDRD (S/P/Bld) [Vol rate/Area] 39 mL/min/{1.73_m2} Low >60 [facility] Comment on above: Result Comment: mL/m in/1.73m2 CKD-EPI Creatinine Equation (2020) Performed By: #### L 500.2500 #### [facility] [address] [place], [address] Glucose [Mass/Vol] 169 mg/dL High 70-99 [facility] Comment on above: Performed By: #### L 500.2500 #### [facility] [address] [place], [address] Potassium [Moles/Vol] 4.2 mmol/L Normal 3.3-5.1 [facility] Comment on above: Performed By: #### L 500.2500 #### [facility] [address] [place], [place], [address] Sodium [Moles/Vol] 138 mmol/L Normal 133-145 [facility] Comment on above: Performed By: #### L 500.2500 #### [facility] [address] [place], [place], [address] Urea nitrogen [Mass/Vol] 32 mg/dL High 4-19 [facility] Comment on above: Performed By: #### L 500.2500 #### [facility] [address] [place], [place], [address] Carbon dioxide, total [Moles /volume] in Central venous bloodOrdered By: Jennifer Bailey on 12-06-2024 CO2 [Moles/Vol] 26.5 mmol/L 21.0-32.0 [facility] Chloride assayOrdered By: Shantell Bailey on 12-06-2024 Chloride [Moles/Vol] 98 mmol/L 98-108 [facility] Glomerular filtration rate ( GFR) estimation/1.73 sq m using serum, plasma, or whole bOrdered By: Jennifer Bailey on 12-06-2024 GFR/1.73 sq M.predicted among non-blacks MDRD (S/P/Bld) [Vol rate/Area] 39 mL/min/{1.73_m2} Low >60 [facility] Comment on above: mL/min/1.73m2 CKD-EP I Creatinine Equation (2020) Potassium measurement (mass/ volume)Ordered By: Jennifer Bailey on 12-06-2024 Potassium (Unsp spec) [Mass/Vol] 4.2 mmol/L 3.3-5.1 [facility] Serum creatinine measurement (mass/volume)Ordered By: Jennifer Bailey on 12-06-2024 Creatinine [Mass/Vol] 1.42 mg/dL High 0.70-1.20 [facility] Serum glucose measurement (m ass/volume)Ordered By: Jennifer Bailey on 12-06-2024 Glucose [Mass/Vol] 169 mg/dL High 70-99 [facility] Serum or plasma calcium shannon urement (mass/volume)Ordered By: Jennifer Bailey on 12-06-2024 Calcium [Mass/Vol] 9.5 mg/dL 7.6-11.0 [facility] Serum or plasma urea nitroge n measurement (mass/volume)Ordered By: Jennifer Bailey on 12-06-2024 Urea nitrogen [Mass/Vol] 32 mg/dL High 4-19 [facility] Sodium levelOrdered By: Estiven trejoe Lynn on 12-06-2024 Sodium [Moles/Vol] 138 mmol/L 133-145 [facility] Pelvic w/ Transvaginalon Pelvic w/ Transvaginal [facility] Imaging Services [address] [place], [place] [address] Pelvic w/ Transvaginal MR#: [id number] Acct: [id number] Name: CHRISTY FRANCIS Rep #: [id number] : 1950 F 74 From: Demarcus dominguez MD PCP: Dr. Marielos Perla DO Status: REG CLI Study: Pelvic w/ Transvaginal Date of Exam: 11/29/24 Exam# [id number] Ordering Dr: Marielos Perla DO PROCEDURE: PELVIC [...] Endometrial thickening. Clinical correlation recommended. Reading Location: [id number] CC: Dr. Marielos Perla, Treasury Accountant: Signed Normal [facility] Anion gap in Serum or Plasma Ordered By: Jennifer Bailey on 11-02-2024 Anion gap [Moles/Vol] 15 mmol/L 5-15 [facility] BUN/creatinine ratioOrdered By: Jennifer Bailey on 11-02-2024 Urea nitrogen/Creatinine [Mass ratio] 20.1 mg/mg High 10-20 [facility] Basic Metabolic Profile (BMP )on 11-02-2024 BUN/CRE 20.1 RATIO High - [facility] Comment on above: Performed By: #### L 500.2500 #### [facility] Laboratory [address] [place], [address] Calcium [Mass/Vol] 9.9 mg/dL Normal 7.6-11.0 [facility] Comment on above: Performed By: #### L 500.2500 #### [facility] Laboratory [address] [place], [address] Chloride [Moles/Vol] 98 mmol/L Normal 98-108 [facility] Comment on above: Performed By: #### L 500.2500 #### [facility] Laboratory [address] [facility] [place], [address] CO2 [Moles/Vol] 23.7 mmol/L Normal 21.0-32.0 [facility] Comment on above: Performed By: #### L 500.2500 #### [facility] Laboratory [address] [place], [address] Creatinine [Mass/Vol] 1.77 mg/dL High 0.70-1.20 [facility] Comment on above: Performed By: #### L 500.2500 #### [facility] Laboratory [address] [place], [address] GAP 15 Normal 5-15 [facility] Comment on above: Performed By: #### L 500.2500 #### [facility] Laboratory [address] [place], [address] GFR/1.73 sq M.predicted among non-blacks MDRD (S/P/Bld) [Vol rate/Area] 30 mL/min/{1.73_m2} Low >60 [facility] Comment on above: Result Comment: mL/m in/1.73m2 CKD-EPI Creatinine Equation (2020) Performed By: #### L 500.2500 #### [facility] Laboratory [address] [place], [address] Glucose [Mass/Vol] 127 mg/dL High 70-99 [facility] Comment on above: Performed By: #### L 500.2500 #### [facility] Laboratory [address] [place], [address] Potassium [Moles/Vol] 4.8 mmol/L Normal 3.3-5.1 [facility] Comment on above: Performed By: #### L 500.2500 #### [facility] Laboratory [address] [place], [address] Sodium [Moles/Vol] 137 mmol/L Normal 133-145 [facility] Comment on above: Performed By: #### L 500.2500 #### [facility] Laboratory [address] [place], [address] Urea nitrogen [Mass/Vol] 36 mg/dL High 4-19 [facility] Comment on above: Performed By: #### L 500.2500 #### [facility] Laboratory [address] [place], [address] Carbon dioxide, total [Moles /volume] in Central venous bloodOrdered By: Jennifer Bailey on 11-02-2024 CO2 [Moles/Vol] 23.7 mmol/L 21.0-32.0 [facility] Cardiology Visit Reporton Cardiology Visit Report [facility] [address] [place] [address] OFFICE VISIT Date of Service: 11/02/24 MR#: [id number] Acct: [id number] Name: CHRISTY FRANCIS Rep #: [id number] : 1950 Provider: SKYLER Low Age/Sex: 74/F Location: [facility] [place] Status: Signed HPI HPI History of Present Illness Details: This is a 74-year-old white female who presents today for outpatient cardiovascular follow-up visit. She has a history of underlying CAD status post CABG ([facility]: 02-27-2019: FOLEY to the LAD, SVG to [...] Monitor Intake Visit Reasons: 1 Y FU Marine Equipment Preservation Inspector Required: No Accompanied by: Self Is patient [...] Mechanical loosening of prosthetic knee Atherosclerosis of [place] coronary artery of [place] heart without angina pectoris PAD (peripheral artery disease) HLD (hyperlipidemia) Type II diabetes mellitus Surgical History History of coronary artery bypass graft x 3 ( 02/27/19) History of prosthetic unicompartmental arthroplasty of left knee Family History Mother Heart disease Social History Smoking Status: Light Smoker (<10/day) alcohol intake: current alcohol intake frequency: ho (more content not included)... Normal [facility] Chloride assayOrdered By: Shantell Bailey on 11-02-2024 Chloride [Moles/Vol] 98 mmol/L 98-108 [facility] Glomerular filtration rate ( GFR) estimation/1.73 sq m using serum, plasma, or whole bOrdered By: Jennifer Bailey on 11-02-2024 GFR/1.73 sq M.predicted among non-blacks MDRD (S/P/Bld) [Vol rate/Area] 30 mL/min/{1.73_m2} Low >60 [facility] Comment on above: mL/min/1.73m2 CKD-EP I Creatinine Equation (2020) Potassium measurement (mass/ volume)Ordered By: Jennifer Bailey on 11-02-2024 Potassium (Unsp spec) [Mass/Vol] 4.8 mmol/L 3.3-5.1 [facility] Serum creatinine measurement (mass/volume)Ordered By: Jennifer Bailey on 11-02-2024 Creatinine [Mass/Vol] 1.77 mg/dL High 0.70-1.20 [facility] Serum glucose measurement (m ass/volume)Ordered By: Jennifer Bailey on 11-02-2024 Glucose [Mass/Vol] 127 mg/dL High 70-99 [facility] Serum or plasma calcium shannon urement (mass/volume)Ordered By: Jennifer Bailey on 11-02-2024 Calcium [Mass/Vol] 9.9 mg/dL 7.6-11.0 [facility] Serum or plasma urea nitroge n measurement (mass/volume)Ordered By: Jennifer Bailey on 11-02-2024 Urea nitrogen [Mass/Vol] 36 mg/dL High 4-19 [facility] Sodium levelOrdered By: Estiven Bailey on 11-02-2024 Sodium [Moles/Vol] 137 mmol/L 133-145 [facility] L/S Spine Min 4 Viewson L/S Spine Min 4 Views [facility] Imaging Services [address] [place] [address] L/S Spine Min 4 Views MR#: [id number] Acct: [id number] Name: CHRISTY FRANCIS Rep #: [id number] : 1950 F 74 From: Bryce Serrano MD PCP: Dr. Marielos Perla, Status: REG CLI Study: L/S Spine Min 4 Views Date of Exam: 09/18/24 Exam# [id number] Ordering Dr: Rand Mckeon SECURITY SHIFT SUPERVISOR-Sweetie PROCEDURE: L/S SPINE MIN 4 VIEWS 09/18/2024 REASON FOR EXAM: PAIN, SCIATICA TECHNIQUE: Four views of the lumbar spine COMPARISON: None FINDINGS: There are 5 [id number] lumbar-type vertebral bodies. The pars are not [...] on L5 is likely degenerative. Reading Location: [id number] CC: JOHNATHON Mckeon; Dr. Marielos Perla DO Treasury Accountant: Signed Normal [facility] Cardiology Visit Reporton Cardiology Visit Report [facility] Heart [place] [id number] [facility] [place] [address] OFFICE VISIT Date of Service: 06/05/24 MR#: [id number] Acct: [id number] Name: CHRISTY FRANCIS Rep #: [id number] : 1950 Provider: JOHNATHON olivas Age/Sex: 74/F Location: [facility] [place] Status: Signed HPI HPI History of Present Illness Details: This is a 74-year-old white female who presents today for outpatient cardiovascular follow-up visit. She has a history of underlying CAD status post CABG ([facility]: 02-27-2019: FOLEY to the LAD, SVG to [...] NIBP Intake Visit Reasons: 3 M FU Marine Equipment Preservation Inspector Required: No Is patient in pain?: No [...] Mechanical loosening of prosthetic knee Atherosclerosis of [place] coronary artery of [place] heart without angina pectoris PAD (peripheral artery disease) HLD (hyperlipidemia) Type II diabetes mellitus Surgical History (Updated 06/05/24 @ 11:25 by Charlie Johnson SECURITY SHIFT SUPERVISOR, SECURITY SHIFT SUPERVISOR-C) History of coronary artery bypass graft x 3 ( 02/27/19) History of prosthetic unicompartmental arthroplasty of left knee Family History Mother Heart disease So (more content not included)... Normal [facility] Cardiology Visit Reporton Cardiology Visit Report [facility] [address] [place] [address] OFFICE VISIT Date of Service: 03/09/24 MR#: [id number] Acct: [id number] Name: CHRISTY FRANCIS Rep #: [id number] : 1950 Provider: JOHNATHON olivas Age/Sex: 74/F Location: [facility] [place] Status: Signed HPI HPI History of Present Illness Details: This is a 74-year-old white female who presents today for outpatient cardiovascular follow-up visit. She has a history of underlying CAD status post CABG ([facility]: 02-27-2019: FOLEY to the LAD, SVG to [...] Pulse Source NIBP Intake Visit Reasons: S/P [facility] 02/20 Marine Equipment Preservation Inspector Required: No Is patient in pain?: No [...] Mechanical loosening of prosthetic knee Atherosclerosis of [place] coronary artery of [place] heart without angina pectoris PAD (peripheral artery [...] frequency: holidays/ (more content not included)... Normal [facility] Basophil percentageOrdered B y: Marielos Perla on 06-14-2023 Creatinine [Mass/Vol] 1.4 mg/dL 0.55-1.02 [facility] Laboratory - Chemistry and C hemistry - challengeOrdered By: Marielos Perla on 06-14-2023 GFR/1.73 sq M.predicted among non-blacks MDRD (S/P/Bld) [Vol rate/Area] 40.0000 mL/min/{1.73_m2} >60 [facility] Absolute lymphocyte countOrd ered By: Marielos Perla on 11-23-2022 Lymphocytes Auto (Unsp spec) [#/Vol] 2.13 10*3/uL 0.83-4.51 [facility] Basophil percentageOrdered B y: Marielos Perla on 11-23-2022 Basophils/100 WBC (Bld) 0.9 % 0-1 [facility] Bilirubin [Mass/Vol] 0.40 mg/dL 0.20-1.00 [facility] Comment on above: For patients on eltr ombopag therapy, use of Dimension [place] TBIL is not recommended. Chloride [Moles/Vol] 106 mmol/L 98-107 [facility] Cholesterol [Mass/Vol] 165 mg/dL <200 [facility] Comment on above: <200 mg/dL Desirable 200-240 mg/dL Borderline >240 mg/dL High Risk Eosinophils/100 WBC (Bld) 7.6 % 0-5 [facility] Glucose [Mass/Vol] 183 mg/dL 74-106 [facility] Comment on above: Fasting Glucose resu lt greater than or equal to 126 mg/dL suggests DIABETES MELLITUS per A.D.A. criteria. Neutrophils (Bld) [#/Vol] 4.6 10*3/uL 2.0-7.7 [facility] Neutrophils/100 WBC (Bld) 55.9 % 47-70 [facility] Potassium [Moles/Vol] 4.3 mmol/L 3.5-5.1 [facility] Protein [Mass/Vol] 7.5 g/dL 6.4-8.2 [facility] Sodium [Moles/Vol] 138 mmol/L 136-145 [facility] Triglyceride [Mass/Vol] 241 mg/dL <199 [facility] Comment on above: The drugs N-Acetylcy steine and Metamizole may falsely depress this assay.Serum Triglycerides Reference Interval Normal <150 mg/dL Borderline high 150 - 199 mg/dL High 200 - 499 mg/dL Very High > or = 500 mg/dL WBC (Bld) [#/Vol] 8.1 10*3/uL 4.4-11.0 [facility] Blood erythrocytes count (nu mber/volume)Ordered By: Marielos Perla on 11-23-2022 RBC (Bld) [#/Vol] 4.97 10*6/uL 4.2-5.4 [facility] Blood hemoglobin measurement (mass/volume)Ordered By: Marielos Perla on 11-23-2022 Hemoglobin (Bld) [Mass/Vol] 15.5 g/dL 12.0-15.0 [facility] Blood lymphocytes/100 leukoc ytesOrdered By: Marielos Perla on 11-23-2022 Lymphocytes/100 WBC (Bld) 26.2 % 19-41 [facility] Blood monocytes/100 leukocyt esOrdered By: Marielos Perla on 11-23-2022 Monocytes/100 WBC (Bld) 9.0 % 0-10 [facility] Blood platelet mean volumeOr dered By: Marielos Perla on 11-23-2022 Platelet mean volume (Bld) [Entitic vol] 11.1 fL 6.2-12.0 [facility] Determination of erythrocyte mean corpuscular volume (MCV)Ordered By: Marielos Perla on 11-23-2022 MCV (RBC) [Entitic vol] 92.6 fL 81-99 [facility] Hematocrit Auto (Bld) [Volum e fraction]Ordered By: Marileos Perla on 11-23-2022 Hematocrit (Bld) [Volume fraction] 46.0 % 37-47 [facility] Laboratory - Chemistry and C hemistry - challengeOrdered By: Marielos Perla on 11-23-2022 ALP [Catalytic activity/Vol] 65 U/L 45-117 [facility] ALT [Catalytic activity/Vol] 29 U/L 13-56 [facility] CO2 [Moles/Vol] 27.0 mmol/L 21.0-32.0 [facility] Globulin (S) [Mass/Vol] 3.9 g/dL 2.2-4.2 [facility] Urea nitrogen/Creatinine [Mass ratio] 18.0 mg/mg 10-20 [facility] Laboratory - Hematology and Cell countsOrdered By: Marielos Perla on 11-23-2022 Erythrocyte distribution width (RBC) [Entitic vol] 45.6 fL 35.1-43.9 [facility] Erythrocyte distribution width (RBC) [Ratio] 13.5 % 11.6-14.6 [facility] Immature granulocytes/100 WBC (Bld) 0.400 % 0.0-0.9 [facility] Comment on above: IG% - Immature Granu locytes (promyelocytes, myelocytes and metamyelocytes) > 1% indicates that a LEFT SHIFT is Present. MCH (RBC) [Entitic mass] 31.2 pg 27.0-32.0 [facility] Nucleated RBC/100 WBC (Bld) [Ratio] 0 % 0-5 [facility] MCHC Auto (RBC) [Mass/Vol]Or dered By: Marielos Perla on 11-23-2022 MCHC (RBC) [Mass/Vol] 33.7 g/dL 32-36 [facility] No Panel InformationOrdered By: Marielos Perla on 11-23-2022 Estimated GFR (MDRD) Amer 44 mL/min >60 [facility] Comment on above: GFR Calc Estimated GFR (MDRD) Non-Af Amer 36 mL/min >60 [facility] Comment on above: Non- GFR Calc Urine Microalbumin/Creatinin e Ratio 1038.3 mg/g CRE <30 [facility] Platelets bldOrdered By: Mariposa Perla on 11-23-2022 Platelets (Bld) [#/Vol] 228 10*3/uL 150-450 [facility] Serum or plasma albumin shannon urement (mass/volume)Ordered By: Marielos Perla on 11-23-2022 Albumin [Mass/Vol] 3.6 g/dL 3.2-5.0 [facility] Serum or plasma albumin/glob ulin mass ratioOrdered By: Marielos Perla on 11-23-2022 Albumin/Globulin [Mass ratio] 0.9 {ratio} 0.9-2.4 [facility] Serum or plasma calcium shannon urement (mass/volume)Ordered By: Marielos Perla on 11-23-2022 Calcium [Mass/Vol] 9.1 mg/dL 8.5-10.1 [facility] Serum or plasma cholesterol in HDL measurement (mass/volume)Ordered By: Marielos Perla on 11-23-2022 Cholesterol in HDL [Mass/Vol] 51 mg/dL >40 [facility] Comment on above: The drugs N-Acetylcy steine and Metamizole may falsely depress this assay. Reference Range HDL <40 mg/dL Low HDL Cholesterol HDL >or= 60 mg/dL High HDL Cholesterol Serum or plasma cholesterol in VLDL measurement (mass/volume)Ordered By: Marielos Perla on 11-23-2022 Cholesterol in VLDL [Mass/Vol] 48 mg/dL 5-40 [facility] Serum or plasma creatinine m easurement (mass/volume)Ordered By: Marielos Perla on 11-23-2022 Creatinine [Mass/Vol] 1.50 mg/dL 0.55-1.02 [facility] Comment on above: The validity of the calculated GFR & GFRAA in patients over 70 years has not been determined. Clinical correlation is essential. Serum or plasma low density lipoprotein (LDL) cholesterol measurement (mass/volume)Ordered By: Marielos Perla on 11-23-2022 Cholesterol in LDL [Mass/Vol] 66 mg/dL 0-130 [facility] Serum or plasma urea nitroge n measurement (mass/volume)Ordered By: Marielos Perla on 11-23-2022 Urea nitrogen [Mass/Vol] 27 mg/dL 7-18 [facility] Thin prep Papanicolaou smear with manual screeningOrdered By: Marielos Perla on 11-23-2022 Thin prep Papanicolaou smear with manual screening 24 U/L 15-37 [facility] Thin prep Papanicolaou smear with manual screening 5 5-15 [facility] Thin prep Papanicolaou smear with manual screening 325.0 mg/L NO RANGE EST. [facility] Urine creatinine measurement (mass/volume)Ordered By: Marielos Perla on 11-23-2022 Creatinine (U) [Mass/Vol] 31.30 mg/dL NO RANGE EST. [facility] Basophil percentageOrdered B y: Charlie Johnson on 08-14-2022 Bilirubin [Mass/Vol] 0.30 mg/dL 0.20-1.00 [facility] Comment on above: For patients on eltr ombopag therapy, use of Dimension [place] TBIL is not recommended. Chloride [Moles/Vol] 109 mmol/L 98-107 [facility] Cholesterol [Mass/Vol] 185 mg/dL <200 [facility] Comment on above: <200 mg/dL Desirable 200-240 mg/dL Borderline >240 mg/dL High Risk Glucose [Mass/Vol] 70 mg/dL 74-106 [facility] Potassium [Moles/Vol] 4.2 mmol/L 3.5-5.1 [facility] Protein [Mass/Vol] 7.3 g/dL 6.4-8.2 [facility] Sodium [Moles/Vol] 141 mmol/L 136-145 [facility] Triglyceride [Mass/Vol] 360 mg/dL <199 [facility] Comment on above: The drugs N-Acetylcy steine and Metamizole may falsely depress this assay.Serum Triglycerides Reference Interval Normal <150 mg/dL Borderline high 150 - 199 mg/dL High 200 - 499 mg/dL Very High > or = 500 mg/dL WBC (Bld) [#/Vol] 10.0 10*3/uL 4.4-11.0 [facility] Blood erythrocytes count (nu mber/volume)Ordered By: Charlie Johnson on 08-14-2022 RBC (Bld) [#/Vol] 5.23 10*6/uL 4.2-5.4 [facility] Blood hemoglobin measurement (mass/volume)Ordered By: Charlie Johnson on 08-14-2022 Hemoglobin (Bld) [Mass/Vol] 15.9 g/dL 12.0-15.0 [facility] Blood platelet mean volumeOr dered By: Charlie Johnson on 08-14-2022 Platelet mean volume (Bld) [Entitic vol] 10.5 fL 6.2-12.0 [facility] Determination of erythrocyte mean corpuscular volume (MCV)Ordered By: Charlie Johnson on 08-14-2022 MCV (RBC) [Entitic vol] 95.2 fL 81-99 [facility] Direct bilirubinOrdered By: Charlie Johnson on 08-14-2022 Bilirubin.direct [Mass/Vol] 0.08 mg/dL 0.00-0.30 [facility] Hematocrit Auto (Bld) [Volum e fraction]Ordered By: Charlie Johnson on 08-14-2022 Hematocrit (Bld) [Volume fraction] 49.8 % 37-47 [facility] Laboratory - Chemistry and C hemistry - challengeOrdered By: Charlie Johnson on 08-14-2022 ALP [Catalytic activity/Vol] 68 U/L 45-117 [facility] ALT [Catalytic activity/Vol] 25 U/L 13-56 [facility] CO2 [Moles/Vol] 28.0 mmol/L 21.0-32.0 [facility] Globulin (S) [Mass/Vol] 4.0 g/dL 2.2-4.2 [facility] Natriuretic peptide B (Bld) [Mass/Vol] 336.8 pg/mL 0-100 [facility] Urea nitrogen/Creatinine [Mass ratio] 19.0 mg/mg 10-20 [facility] Laboratory - Hematology and Cell countsOrdered By: Charlie Johnson on 08-14-2022 Erythrocyte distribution width (RBC) [Entitic vol] 48.3 fL 35.1-43.9 [facility] Erythrocyte distribution width (RBC) [Ratio] 13.8 % 11.6-14.6 [facility] MCH (RBC) [Entitic mass] 30.4 pg 27.0-32.0 [facility] MCHC Auto (RBC) [Mass/Vol]Or dered By: Charlie Johnson on 08-14-2022 MCHC (RBC) [Mass/Vol] 31.9 g/dL 32-36 [facility] No Panel InformationOrdered By: Charlie Johnson on 08-14-2022 Estimated GFR (MDRD) Amer 49 mL/min >60 [facility] Comment on above: GFR Calc Estimated GFR (MDRD) Non-Af Amer 40 mL/min >60 [facility] Comment on above: Non- GFR Calc Platelets bldOrdered By: Liban Johnson on 08-14-2022 Platelets (Bld) [#/Vol] 309 10*3/uL 150-450 [facility] Serum or plasma albumin shannon urement (mass/volume)Ordered By: Charlie Johnson on 08-14-2022 Albumin [Mass/Vol] 3.3 g/dL 3.2-5.0 [facility] Serum or plasma calcium shannon urement (mass/volume)Ordered By: Charlie Johnson on 08-14-2022 Calcium [Mass/Vol] 9.3 mg/dL 8.5-10.1 [facility] Serum or plasma cholesterol in HDL measurement (mass/volume)Ordered By: Charlie Johnson on 08-14-2022 Cholesterol in HDL [Mass/Vol] 48 mg/dL >40 [facility] Comment on above: The drugs N-Acetylcy steine and Metamizole may falsely depress this assay. Reference Range HDL <40 mg/dL Low HDL Cholesterol HDL >or= 60 mg/dL High HDL Cholesterol Serum or plasma cholesterol in VLDL measurement (mass/volume)Ordered By: Charlie Johnson on 08-14-2022 Cholesterol in VLDL [Mass/Vol] 72 mg/dL 5-40 [facility] Serum or plasma creatinine m easurement (mass/volume)Ordered By: Charlie Johnson on 08-14-2022 Creatinine [Mass/Vol] 1.37 mg/dL 0.55-1.02 [facility] Comment on above: The validity of the calculated GFR & GFRAA in patients over 70 years has not been determined. Clinical correlation is essential. Serum or plasma low density lipoprotein (LDL) cholesterol measurement (mass/volume)Ordered By: Charlie Johnson on 08-14-2022 Cholesterol in LDL [Mass/Vol] 65 mg/dL 0-130 [facility] Serum or plasma urea nitroge n measurement (mass/volume)Ordered By: Charlie Johnson on 08-14-2022 Urea nitrogen [Mass/Vol] 26 mg/dL 7-18 [facility] Thin prep Papanicolaou smear with manual screeningOrdered By: Charlie Johnson on 08-14-2022 Thin prep Papanicolaou smear with manual screening 24 U/L 15-37 [facility] Thin prep Papanicolaou smear with manual screening 4 5-15 [facility] Basophil percentageOrdered B y: Charlie Johnson on 02-25-2022 Bilirubin [Mass/Vol] 0.30 mg/dL 0.20-1.00 [facility] Comment on above: For patients on eltr ombopag therapy, use of Dimension [place] TBIL is not recommended. Cholesterol [Mass/Vol] 156 mg/dL <200 [facility] Comment on above: <200 mg/dL Desirable 200-240 mg/dL Borderline >240 mg/dL High Risk Protein [Mass/Vol] 6.7 g/dL 6.4-8.2 [facility] Triglyceride [Mass/Vol] 213 mg/dL <199 [facility] Comment on above: The drugs N-Acetylcy steine and Metamizole may falsely depress this assay.Serum Triglycerides Reference Interval Normal <150 mg/dL Borderline high 150 - 199 mg/dL High 200 - 499 mg/dL Very High > or = 500 mg/dL Direct bilirubinOrdered By: Charlie Johnson on 02-25-2022 Bilirubin.direct [Mass/Vol] 0.11 mg/dL 0.00-0.30 [facility] Laboratory - Chemistry and C hemistry - challengeOrdered By: Charlie Johnson on 02-25-2022 ALP [Catalytic activity/Vol] 57 U/L 45-117 [facility] ALT [Catalytic activity/Vol] 26 U/L 13-56 [facility] Globulin (S) [Mass/Vol] 3.5 g/dL 2.2-4.2 [facility] Serum or plasma albumin shannon urement (mass/volume)Ordered By: Charlie Johnson on 02-25-2022 Albumin [Mass/Vol] 3.2 g/dL 3.2-5.0 [facility] Serum or plasma cholesterol in HDL measurement (mass/volume)Ordered By: Charlie Johnson on 02-25-2022 Cholesterol in HDL [Mass/Vol] 50 mg/dL >40 [facility] Comment on above: The drugs N-Acetylcy steine and Metamizole may falsely depress this assay. Reference Range HDL <40 mg/dL Low HDL Cholesterol HDL >or= 60 mg/dL High HDL Cholesterol Serum or plasma cholesterol in VLDL measurement (mass/volume)Ordered By: Charlie Johnson on 02-25-2022 Cholesterol in VLDL [Mass/Vol] 43 mg/dL 5-40 [facility] Serum or plasma low density lipoprotein (LDL) cholesterol measurement (mass/volume)Ordered By: Charlie Johnson on 02-25-2022 Cholesterol in LDL [Mass/Vol] 63 mg/dL 0-130 [facility] Thin prep Papanicolaou smear with manual screeningOrdered By: Charlie Johnson on 02-25-2022 Thin prep Papanicolaou smear with manual screening 18 U/L 15-37 [facility] Basic Metabolic Panelon 02-17 Calcium [Mass/Vol] 9.2 mg/dL Normal 8.4-10.4 [facility] Comment on above: Performed By: #### B GLU #### [address] [place], [place] Glucose [Mass/Vol] 170 mg/dL High 70-100 [facility] Comment on above: Performed By: #### B GLU #### [facility] [address] [place], [place] Anion gap [Moles/Vol] 11 Normal [facility] Comment on above: Performed By: #### B GLU #### [facility] [address], [place] CO2 [Moles/Vol] 25 mmol/L Normal 22-30 [facility] Comment on above: Performed By: #### B GLU #### [address] [place], [place] Creatinine [Mass/Vol] 1.21 mg/dL Normal 0.52-1.25 [facility] Comment on above: Performed By: #### B GLU #### [facility] [address] [place] [address] GFR/1.73 sq M predicted among blacks MDRD (S/P/Bld) [Vol rate/Area] 53.5 mL/min/{1.73_m2} Normal >60 [facility] Comment on above: Performed By: #### B GLU #### [address] [place] [address] GFR/1.73 sq M predicted among non-blacks MDRD (S/P/Bld) [Vol rate/Area] 44.1 mL/min/{1.73_m2} Normal >60 [facility] Comment on above: Result Comment: Sour ce- MDRD equation with creatinine calibration to IDMS(NKDEP) eGFR not recommended for drug dose adjustment Performed By: #### B GLU #### [address] [place], [place] Urea nitrogen [Mass/Vol] 28 mg/dL High 7-20 [facility] Comment on above: Performed By: #### B GLU #### [address] [place], [place] Chloride [Moles/Vol] 102 mmol/L Normal 98-107 [facility] Comment on above: Performed By: #### B GLU #### [address] [place], [place] Potassium [Moles/Vol] 4.6 mmol/L Normal 3.5-5.1 [facility] Comment on above: Performed By: #### B GLU #### [address] [place], [place] Sodium [Moles/Vol] 138 mmol/L Normal 135-145 [facility] Comment on above: Performed By: #### B GLU #### [address] [place], [place] Anion gap [Moles/Vol] 11 mmol/L [facility], [place] Calcium [Mass/Vol] 9.2 mg/dL 8.4 - 10. 4 mg/dL [facility], [place] Chloride [Moles/Vol] 102 mmol/L 98 - 10 7 mmol/L [place], [place] CO2 [Moles/Vol] 25 mmol/L 22 - 30 mmol/L [place] Creatinine [Mass/Vol] 1.21 mg/dL 0.52 - 1.25 mg/dL [place] EGFR IF NonAfrican [place] 44.1 mL/min >60 [place] Comment on above: Source- MDRD equatio n with creatinine calibration to IDMS(NKDEP) eGFR not recommended for drug dose adjustment GFR/1.73 sq M predicted among blacks MDRD (S/P/Bld) [Vol rate/Area] 53.5 mL/min/{1.73_m2} >60 [place] Glucose [Mass/Vol] 170 mg/dL High 70 - 100 mg/dL [place] Interpretation and review of laboratory results Abnormal [place] Potassium [Moles/Vol] 4.6 mmol/L 3.5 - 5.1 mmol/L [place] Sodium [Moles/Vol] 138 mmol/L 135 - 145 mmol/L [place] Urea nitrogen [Mass/Vol] 28 mg/dL High 7 - 20 mg/dL [place] Test Performed by [address] [address] [place], [place] CBCon 03-03-2019 Erythrocyte distribution width (RBC) [Ratio] 13.1 % 11.5 - 14.5 % [place] Hematocrit (Bld) [Volume fraction] 32.0 % Low 35 - 47 % [place] Hemoglobin (Bld) [Mass/Vol] 10.6 g/dL Low 11.7 - 16 g/dL [place] Interpretation and review of laboratory results Abnormal [place] MCH (RBC) [Entitic mass] 30.4 pg 26 - 34 pg [place] MCHC (RBC) [Mass/Vol] 33.1 % 32 - 36 % [place] MCV (RBC) [Entitic vol] 91.7 fL 79 - 98 fL [place] Platelet mean volume (Bld) [Entitic vol] 9.4 fL 7.4 - 10.4 fL [place] Platelets (Bld) [#/Vol] 201 10*3/uL 140 - 440 10*3/uL [place] RBC (Bld) [#/Vol] 3.49 10*6/uL Low 3.8 - 5.2 10*6/uL [place] WBC (Bld) [#/Vol] 16.2 10*3/uL High 3.6 - 10.7 10*3/uL [place] Test Performed by [facility], [address] [place] [address] [place], [place] CR Chest Portableon 03-03-20 19 CR Chest Portable Patient Name: CHRISTY FRANCIS Diagnostic Radiology Exam Date/Time 03/03/2019 05:56:23 EST Exam CR Chest Portable Ordering Physician GRANT TAYLOR Accession Number [id number] CPT4 Codes 36785 () Reason For Exam POST OP OPEN [...] Transcribed Date and Time: 03/03/2019 6:46 Normal [facility] Glucose,Bedsideon 03-03-2019 Glucose [Mass/Vol] 220 mg/dL High 70-100 [facility] Comment on above: Result Comment: Test performed by glucose meter. Results may be 10%-15% lower than serum/plasma values. (CLIA ID [id number]) Performed By: #### B GLU #### [facility] [address], [place] Glucose [Mass/Vol] 224 mg/dL High 70-100 [facility] Comment on above: Result Comment: Test performed by glucose meter. Results may be 10%-15% lower than serum/plasma values. (CLIA ID [id number]) Performed By: #### B GLU #### [address] [place], [place] Hemogramon 03-03-2019 Erythrocyte distribution width (RBC) [Ratio] 13.1 % Normal 11.5-14.5 [facility] Comment on above: Performed By: #### B GLU #### [address] [place] Hematocrit (Bld) [Volume fraction] 32.0 % Low 35.0-47.0 [facility] Comment on above: Performed By: #### B GLU #### [address] [place] Hemoglobin (Bld) [Mass/Vol] 10.6 g/dL Low 11.7-16.0 [facility] Comment on above: Performed By: #### B GLU #### [address] [place] MCH (RBC) [Entitic mass] 30.4 pg Normal 26.0-34.0 [facility] Comment on above: Performed By: #### B GLU #### [address] [place] MCHC (RBC) [Mass/Vol] 33.1 % Normal 32.0-36.0 [facility] Comment on above: Performed By: #### B GLU #### [address] [address] [place], [place] MCV (RBC) [Entitic vol] 91.7 fL Normal 79.0-98.0 [facility] Comment on above: Performed By: #### B GLU #### [address] [place] Platelet mean volume (Bld) [Entitic vol] 9.4 fL Normal 7.4-10.4 [facility] Comment on above: Performed By: #### B GLU #### [facility] [address], [place] Platelets (Bld) [#/Vol] 201 10*3/uL Normal 140-440 [facility] Comment on above: Performed By: #### B GLU #### [facility] [address] [place], [place] RBC (Bld) [#/Vol] 3.49 10*6/uL Low 3.80-5.20 [facility] Comment on above: Performed By: #### B GLU #### [facility] [address], [place] WBC (Bld) [#/Vol] 16.2 10*3/uL High 3.6-10.7 [facility] Comment on above: Performed By: #### B GLU #### [facility] [address], [place] POCT Glucoseon 03-03-2019 Glucose [Mass/Vol] 220 mg/dL High 70 - 100 mg/dL [place] Comment on above: Test performed by gl ucose meter. Results may be 10%-15% lower than serum/plasma values. (CLIA ID [id number]) Interpretation and review of laboratory results Abnormal [place], [place] Test Performed by [facility], [address] [place] [address] [facility] [place] Glucose [Mass/Vol] 224 mg/dL High 70 - 100 mg/dL [place] Comment on above: Test performed by gl ucose meter. Results may be 10%-15% lower than serum/plasma values. (CLIA ID [id number]) Interpretation and review of laboratory results Abnormal [place] Test Performed by [facility], [address] [place] [address] [facility], [place] XR CHEST PORTABLEon 03-03-20 19 Brian, [facility] Incoming Radiology Results From [facility] - 03/03/2019 6:48 AM EST Patient Name: CHRISTY FRANCIS ---Diagnostic Radiology--- Exam Date/Time 03/03/2019 05:56:23 EST Exam CR Chest Portable Ordering Physician GRANT TAYLOR Accession Number [id number] CPT4 Codes 29245 () Reason For Exam POST OP OPEN [...] JEFFREY Transcribed Date and Time: 03/03/2019 6:46 [place], [place] Patient Name: CHRISTY FRANCIS ---Diagnostic Radiology--- Exam Date/Time 03/03/2019 05:56:23 EST Exam CR Chest Portable Ordering Physician GRANT TAYLOR Accession Number [id number] CPT4 Codes 52513 () Reason For Exam POST OP OPEN [...] JEFFREY Transcribed Date and Time: 03/03/2019 6:46 [facility], [place] Basic Metabolic Panelon 02-17 Calcium [Mass/Vol] 9.3 mg/dL Normal 8.4-10.4 [facility] Comment on above: Performed By: #### B GLU #### [facility] [address], [place] Anion gap [Moles/Vol] 10 Normal [facility] Comment on above: Performed By: #### B GLU #### [facility] [address] [place], [place] CO2 [Moles/Vol] 22 mmol/L Normal 22-30 [facility] Comment on above: Performed By: #### B GLU #### [address] [address] [place], [place] Creatinine [Mass/Vol] 1.24 mg/dL Normal 0.52-1.25 [facility] Comment on above: Performed By: #### B GLU #### [facility] [address] [place], [place] GFR/1.73 sq M predicted among blacks MDRD (S/P/Bld) [Vol rate/Area] 52.0 mL/min/{1.73_m2} Normal >60 [facility] Comment on above: Performed By: #### B GLU #### [facility] [address] [place] GFR/1.73 sq M predicted among non-blacks MDRD (S/P/Bld) [Vol rate/Area] 42.9 mL/min/{1.73_m2} Normal >60 [facility] Comment on above: Result Comment: Sour ce- MDRD equation with creatinine calibration to IDMS(NKDEP) eGFR not recommended for drug dose adjustment Performed By: #### B GLU #### [facility] [address] [place], [place] Glucose [Mass/Vol] 253 mg/dL High 70-100 [facility] Comment on above: Performed By: #### B GLU #### [address] [address] [place] Urea nitrogen [Mass/Vol] 32 mg/dL High 7-20 [facility] Comment on above: Performed By: #### B GLU #### [facility] [address] [place] [address] Chloride [Moles/Vol] 104 mmol/L Normal 98-107 [facility] Comment on above: Performed By: #### B GLU #### [facility] [address] [place] [address] Potassium [Moles/Vol] 5.0 mmol/L Normal 3.5-5.1 [facility] Comment on above: Performed By: #### B GLU #### [facility] [address] [place] [address] Sodium [Moles/Vol] 135 mmol/L Normal 135-145 [facility] Comment on above: Performed By: #### B GLU #### [facility] [address] [place] [address] Anion gap [Moles/Vol] 10 mmol/L [place] Calcium [Mass/Vol] 9.3 mg/dL 8.4 - 10. 4 mg/dL [place] Chloride [Moles/Vol] 104 mmol/L 98 - 10 7 mmol/L [place] CO2 [Moles/Vol] 22 mmol/L 22 - 30 mmol/L [place] Creatinine [Mass/Vol] 1.24 mg/dL 0.52 - 1.25 mg/dL [place] EGFR IF NonAfrican [place] 42.9 mL/min >60 [place] Comment on above: Source- MDRD equatio n with creatinine calibration to IDMS(NKDEP) eGFR not recommended for drug dose adjustment GFR/1.73 sq M predicted among blacks MDRD (S/P/Bld) [Vol rate/Area] 52.0 mL/min/{1.73_m2} >60 [place] Glucose [Mass/Vol] 253 mg/dL High 70 - 100 mg/dL [place] Interpretation and review of laboratory results Abnormal [place] Potassium [Moles/Vol] 5.0 mmol/L 3.5 - 5.1 mmol/L [place] Sodium [Moles/Vol] 135 mmol/L 135 - 145 mmol/L [place] Urea nitrogen [Mass/Vol] 32 mg/dL High 7 - 20 mg/dL [place] Test Performed by [facility], [address] [place] [address] [place] CBCon 03-02-2019 Erythrocyte distribution width (RBC) [Ratio] 13.2 % 11.5 - 14.5 % [place] Hematocrit (Bld) [Volume fraction] 33.8 % Low 35 - 47 % [place] Hemoglobin (Bld) [Mass/Vol] 11.0 g/dL Low 11.7 - 16 g/dL [place] Interpretation and review of laboratory results Abnormal [place] MCH (RBC) [Entitic mass] 30.3 pg 26 - 34 pg [place] MCHC (RBC) [Mass/Vol] 32.6 % 32 - 36 % [place] MCV (RBC) [Entitic vol] 92.7 fL 79 - 98 fL [place] Platelet mean volume (Bld) [Entitic vol] 10.7 fL High 7.4 - 10.4 fL [place] Platelets (Bld) [#/Vol] 169 10*3/uL 140 - 440 10*3/uL [place] RBC (Bld) [#/Vol] 3.65 10*6/uL Low 3.8 - 5.2 10*6/uL [place] WBC (Bld) [#/Vol] 18.8 10*3/uL High 3.6 - 10.7 10*3/uL [place] Test Performed by [facility], [address] [place] [address] [place] CR Chest Portableon 03-02-20 19 CR Chest Portable Patient Name: CHRISTY FRANCIS Diagnostic Radiology Exam Date/Time 03/02/2019 06:07:22 EST Exam CR Chest Portable Ordering Physician GRANT TAYLOR Accession Number [id number] CPT4 Codes 19928 () Reason For Exam POST OP OPEN [...] Transcribed Date and Time: 03/02/2019 6:14 Normal [facility] Echocardiogram transesophage pedro pablo 03-02-2019 Brian, [facility] Incoming Cardiology Results From [facility] - 03/02/2019 8:47 AM EST TRANSESOPHAGEAL ECHOCARDIOGRAM Intraoperative-Pre Pump Only PATIENT: Christy Francis STUDY DATE: 02/27/2019 : 1950 AGE: 69 HT/WT: 154.9 cm (61 80 kg in) (176 lb) GENDER: F BP: 98 / 57 LOCATION: [facility] PATIENT Inpatient [facility] STATUS: *ORDERING PHYSICIAN: * Ronda Carmona *READING PHYSICIAN: * iMchi Dewitt, *COMMERCIAL HOUSEKEEPER: Janice Austin MD INDICATIONS: CABG. CONCLUSIONS SUMMARY: [...] Michi Dewitt MD 03/02/2019 08:46 Prior Signatures: [facility] [place] TRANSESOPHAGEAL ECHOCARDIOGRAM Intraoperative-Pre Pump Only PATIENT: Christy Francis STUDY DATE: 02/27/2019 : 1950 AGE: 69 HT/WT: 154.9 cm (61 80 kg in) (176 lb) GENDER: F BP: 98 / 57 LOCATION: [facility] PATIENT Inpatient [facility] STATUS: *ORDERING PHYSICIAN: * Ronda Carmona *READING PHYSICIAN: * Michi Dewtit, *COMMERCIAL HOUSEKEEPER: * Janice Trivedi MD [facility] [...] MD 03/02/2019 08:46 Prior Signatures: [facility] Glucose,Bedsideon 03-02-2019 Glucose [Mass/Vol] 168 mg/dL High 70-100 [facility] Comment on above: Result Comment: Test performed by glucose meter. Results may be 10%-15% lower than serum/plasma values. (CLIA ID [id number]) Performed By: #### B GLU #### [facility] [address] [place], [place] Glucose [Mass/Vol] 249 mg/dL High 70-100 [facility] Comment on above: Result Comment: Test performed by glucose meter. Results may be 10%-15% lower than serum/plasma values. (CLIA ID [id number]) Performed By: #### B GLU #### [facility] [address] [place], [place] Glucose [Mass/Vol] 324 mg/dL High 70-100 [facility] Comment on above: Result Comment: Test performed by glucose meter. Results may be 10%-15% lower than serum/plasma values. (CLIA ID [id number]) Performed By: #### B GLU #### [facility] [address] [place], [place] Glucose [Mass/Vol] 347 mg/dL High 70-100 [facility] Comment on above: Result Comment: Test performed by glucose meter. Results may be 10%-15% lower than serum/plasma values. (CLIA ID [id number]) Performed By: #### B GLU #### [facility] [address] [place], [place] Hemogramon 03-02-2019 Erythrocyte distribution width (RBC) [Ratio] 13.2 % Normal 11.5-14.5 [facility] Comment on above: Performed By: #### B GLU #### [facility] [address] [place], [place] Hematocrit (Bld) [Volume fraction] 33.8 % Low 35.0-47.0 [facility] Comment on above: Performed By: #### B GLU #### [facility] [address] [place], [place] Hemoglobin (Bld) [Mass/Vol] 11.0 g/dL Low 11.7-16.0 [facility] Comment on above: Performed By: #### B GLU #### [address] [address] [place] MCH (RBC) [Entitic mass] 30.3 pg Normal 26.0-34.0 [facility] Comment on above: Performed By: #### B GLU #### [address] [address] [place] MCHC (RBC) [Mass/Vol] 32.6 % Normal 32.0-36.0 [facility] Comment on above: Performed By: #### B GLU #### [address] [address] [place] MCV (RBC) [Entitic vol] 92.7 fL Normal 79.0-98.0 [facility] Comment on above: Performed By: #### B GLU #### [address] [place] Platelet mean volume (Bld) [Entitic vol] 10.7 fL High 7.4-10.4 [facility] Comment on above: Performed By: #### B GLU #### [address] [address] [place] Platelets (Bld) [#/Vol] 169 10*3/uL Normal 140-440 [facility] Comment on above: Performed By: #### B GLU #### [address] [address] [place] RBC (Bld) [#/Vol] 3.65 10*6/uL Low 3.80-5.20 [facility] Comment on above: Performed By: #### B GLU #### [address] [address] [place] WBC (Bld) [#/Vol] 18.8 10*3/uL High 3.6-10.7 [facility] Comment on above: Performed By: #### B GLU #### [address] [address] [place], [place] POCT Glucoseon 11-14-2019 Glucose [Mass/Vol] 168 mg/dL High 70 - 100 mg/dL [facility] [place] Comment on above: Test performed by gl ucose meter. Results may be 10%-15% lower than serum/plasma values. (CLIA ID [id number]) Interpretation and review of laboratory results Abnormal [facility] Test Performed by [facility], [address] [place] [address] [facility] Glucose [Mass/Vol] 249 mg/dL High 70 - 100 mg/dL [facility] [place] Comment on above: Test performed by gl ucose meter. Results may be 10%-15% lower than serum/plasma values. (CLIA ID [id number]) Interpretation and review of laboratory results Abnormal [facility] [place] Test Performed by [employer] [facility], [address] [place] [address] [facility] Glucose [Mass/Vol] 324 mg/dL High 70 - 100 mg/dL [facility] [place] Comment on above: Test performed by gl ucose meter. Results may be 10%-15% lower than serum/plasma values. (CLIA ID [id number]) Interpretation and review of laboratory results Abnormal [facility] [place] Test Performed by [employer] [facility], [address] [place] [address] [facility] Glucose [Mass/Vol] 347 mg/dL High 70 - 100 mg/dL [facility] [place] Comment on above: Test performed by gl ucose meter. Results may be 10%-15% lower than serum/plasma values. (CLIA ID [id number]) Interpretation and review of laboratory results Abnormal [facility] [place] Test Performed by [employer] [facility], [address] [place] [address] [facility] [place] XR CHEST PORTABLEon 03-02-20 19 Brian, [facility] Incoming Radiology Results From [facility] - 03/02/2019 6:17 AM EST Patient Name: CHRISTY FRANCIS ---Diagnostic Radiology--- Exam Date/Time 03/02/2019 06:07:22 EST Exam CR Chest Portable Ordering Physician GRANT TAYLOR Accession Number [id number] CPT4 Codes 57447 () Reason For Exam POST OP OPEN [...] JEFFREY Transcribed Date and Time: 03/02/2019 6:14 [place] Patient Name: CHRISTY FRANCIS ---Diagnostic Radiology--- Exam Date/Time 03/02/2019 06:07:22 EST Exam CR Chest Portable Ordering Physician GRANT TAYLOR Accession Number [id number] CPT4 Codes 80741 () Reason For Exam POST OP OPEN [...] JEFFREY Transcribed Date and Time: 03/02/2019 6:14 [place] Basic Metabolic Panelon - Calcium [Mass/Vol] 8.9 mg/dL Normal 8.4-10.4 [facility] Comment on above: Performed By: #### B GLU #### [facility] [address], [place] Glucose [Mass/Vol] 293 mg/dL High 70-100 [facility] Comment on above: Performed By: #### B GLU #### [facility] [address], [place] Anion gap [Moles/Vol] 11 Normal [facility] Comment on above: Performed By: #### B GLU #### [address] [address] [place] CO2 [Moles/Vol] 20 mmol/L Low 22-30 [facility] Comment on above: Performed By: #### B GLU #### [address] [address] [place] Creatinine [Mass/Vol] 1.40 mg/dL High 0.52-1.25 [facility] Comment on above: Performed By: #### B GLU #### [address] [address] [place] GFR/1.73 sq M predicted among blacks MDRD (S/P/Bld) [Vol rate/Area] 45.2 mL/min/{1.73_m2} Normal >60 [facility] Comment on above: Performed By: #### B GLU #### [address] [address] [place] GFR/1.73 sq M predicted among non-blacks MDRD (S/P/Bld) [Vol rate/Area] 37.3 mL/min/{1.73_m2} Normal >60 [facility] Comment on above: Result Comment: Sour ce- MDRD equation with creatinine calibration to IDMS(NKDEP) eGFR not recommended for drug dose adjustment Performed By: #### B GLU #### [facility] [address], [place] Urea nitrogen [Mass/Vol] 33 mg/dL High 7-20 [facility] Comment on above: Performed By: #### B GLU #### [address] [address] [place] Chloride [Moles/Vol] 102 mmol/L Normal 98-107 [facility] Comment on above: Performed By: #### B GLU #### [facility] [address], [place] Potassium [Moles/Vol] 5.5 mmol/L High 3.5-5.1 [facility] Comment on above: Performed By: #### B GLU #### [facility] [facility] [address] [place], [place] Sodium [Moles/Vol] 132 mmol/L Low 135-145 [facility] Comment on above: Performed By: #### B GLU #### [facility] [address] [place], [place] Anion gap [Moles/Vol] 11 mmol/L [place], [place] Calcium [Mass/Vol] 8.9 mg/dL 8.4 - 10. 4 mg/dL [place], [place] Chloride [Moles/Vol] 102 mmol/L 98 - 10 7 mmol/L [place] CO2 [Moles/Vol] 20 mmol/L Low 22 - 30 mmol/L [place] Creatinine [Mass/Vol] 1.4 mg/dL High 0.52 - 1.25 mg/dL [place], [place] EGFR IF NonAfrican [place]ian 37.3 mL/min >60 [place], [place] Comment on above: Source- MDRD equatio n with creatinine calibration to IDMS(NKDEP) eGFR not recommended for drug dose adjustment GFR/1.73 sq M predicted among blacks MDRD (S/P/Bld) [Vol rate/Area] 45.2 mL/min/{1.73_m2} >60 [place], [place] Glucose [Mass/Vol] 293 mg/dL High 70 - 100 mg/dL [place] Interpretation and review of laboratory results Abnormal [place] Potassium [Moles/Vol] 5.5 mmol/L High 3.5 - 5.1 mmol/L [place] Sodium [Moles/Vol] 132 mmol/L Low 135 - 145 mmol/L [facility] [place], [place] Urea nitrogen [Mass/Vol] 33 mg/dL High 7 - 20 mg/dL [facility], [place] Test Performed by [facility], [address] [place] [address] [place], [place] Calcium [Mass/Vol] 9.1 mg/dL Normal 8.4-10.4 [facility] Comment on above: Performed By: #### H EMOG, BMP3, MG3 ####[facility] [id number] [place], [place] Anion gap [Moles/Vol] 10 Normal [facility] Comment on above: Performed By: #### H EMOG, BMP3, MG3 ####[facility] [id number] [place], [place] CO2 [Moles/Vol] 22 mmol/L Normal 22-30 [facility] Comment on above: Performed By: #### H EMOG, BMP3, MG3 ####[facility] [id number] [place], [place] Creatinine [Mass/Vol] 1.63 mg/dL High 0.52-1.25 [facility] Comment on above: Performed By: #### H EMOG, BMP3, MG3 ####[employer] [id number] [place], [place] GFR/1.73 sq M predicted among blacks MDRD (S/P/Bld) [Vol rate/Area] 37.9 mL/min/{1.73_m2} Normal >60 [facility] Comment on above: Performed By: #### H EMOG, BMP3, MG3 ####[facility] [id number] [place], [place] GFR/1.73 sq M predicted among non-blacks MDRD (S/P/Bld) [Vol rate/Area] 31.3 mL/min/{1.73_m2} Normal >60 [facility] Comment on above: Result Comment: Sour ce- MDRD equation with creatinine calibration to IDMS(NKDEP) eGFR not recommended for drug dose adjustment Performed By: #### H EMOG, BMP3, MG3 ####[address] [place] [address] Glucose [Mass/Vol] 90 mg/dL Normal 70-100 [facility] Comment on above: Performed By: #### H SANGEETA AVILA3, MG3 ####[address] [place] [address] Urea nitrogen [Mass/Vol] 32 mg/dL High 7-20 [facility] Comment on above: Performed By: #### H AUSTIN BMP3, MG3 ####[address] [place] [address] Chloride [Moles/Vol] 108 mmol/L High 98-107 [facility] Comment on above: Performed By: #### H SANGEETA AVILA3, MG3 ####[address] [place] [address] Potassium [Moles/Vol] 5.7 mmol/L High 3.5-5.1 [facility] Comment on above: Performed By: #### H SANGEETA AVILA3, MG3 ####[address] [place] [address] Sodium [Moles/Vol] 140 mmol/L Normal 135-145 [facility] Comment on above: Performed By: #### H SANGEETA AVILA3, MG3 ####[address] [address] Anion gap [Moles/Vol] 10 mmol/L [place] Calcium [Mass/Vol] 9.1 mg/dL 8.4 - 10. 4 mg/dL [place] Chloride [Moles/Vol] 108 mmol/L High 98 - 10 7 mmol/L [place] CO2 [Moles/Vol] 22 mmol/L 22 - 30 mmol/L [place] Creatinine [Mass/Vol] 1.63 mg/dL High 0.52 - 1.25 mg/dL [place] EGFR IF NonAfrican [place] 31.3 mL/min >60 [place] Comment on above: Source- MDRD equatio n with creatinine calibration to IDMS(NKDEP) eGFR not recommended for drug dose adjustment GFR/1.73 sq M predicted among blacks MDRD (S/P/Bld) [Vol rate/Area] 37.9 mL/min/{1.73_m2} >60 [place], [place] Glucose [Mass/Vol] 90 mg/dL 70 - 100 mg/dL [place] Interpretation and review of laboratory results Abnormal [place] Potassium [Moles/Vol] 5.7 mmol/L High 3.5 - 5.1 mmol/L [place] Sodium [Moles/Vol] 140 mmol/L 135 - 145 mmol/L [place] Urea nitrogen [Mass/Vol] 32 mg/dL High 7 - 20 mg/dL [place] CBCon 03-01-2019 Erythrocyte distribution width (RBC) [Ratio] 13.5 % 11.5 - 14.5 % [place] Hematocrit (Bld) [Volume fraction] 34.2 % Low 35 - 47 % [place] Hemoglobin (Bld) [Mass/Vol] 11.1 g/dL Low 11.7 - 16 g/dL [place] Interpretation and review of laboratory results Abnormal [place] MCH (RBC) [Entitic mass] 30.1 pg 26 - 34 pg [place] MCHC (RBC) [Mass/Vol] 32.4 % 32 - 36 % [place] MCV (RBC) [Entitic vol] 92.9 fL 79 - 98 fL [place] Platelet mean volume (Bld) [Entitic vol] 9.8 fL 7.4 - 10.4 fL [place] Platelets (Bld) [#/Vol] 151 10*3/uL 140 - 440 10*3/uL [place] RBC (Bld) [#/Vol] 3.68 10*6/uL Low 3.8 - 5.2 10*6/uL [place] WBC (Bld) [#/Vol] 17.8 10*3/uL High 3.6 - 10.7 10*3/uL [place] CR Chest Portableon 03-01-20 19 CR Chest Portable Patient Name: CHRISTY FRANCIS Diagnostic Radiology Exam Date/Time 03/01/2019 07:10:13 EST Exam CR Chest Portable Ordering Physician GRANT TAYLOR Accession Number [id number] CPT4 Codes 48990 () Reason For Exam sob Report CLINICAL INFORMATION: Shortness of breath. Status post open heart surgery. CHEST X-RAY, PORTABLE, 0537 hours: An AP portable view is compared to the prior examination of previous day. There is no change in the mediastinal or left lower hemithorax chest tubes or right internal jugular [place] introducer sheath. There is stable slightly limited lung volumes. No pneumothorax or other acute process or interval change identified. 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1950 Requested By: GRANT TAYLOR A Order Number: [id number] Reading MD: Saray Yates Measurements Intervals Sodus Rate: 97 P: 62 TN: 139 QRS: 28 QRSD: 67 T: 83 QT: 327 QTc: 416 Interpretive Statements Sinus rhythm Inferior infarct, acute Electronically Signed On 03-01-2019 9:20:04 EST by [facility] [place] Brian [facility] Incoming Cardiology Results From [facility] - 03/01/2019 9:21 AM EST [facility] Test Date: 2019-03-01 Pat Name: Christy Francis Department: 1AU Room: 1H04 Gender: 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 Results may be 10%-15% lower than serum/plasma values. (CLIA ID [id number]) Performed By: #### B GLU #### [facility] [address] [place] [address] Glucose [Mass/Vol] 357 mg/dL High 70-100 [facility] Comment on above: Result Comment: Test performed by glucose meter. Results may be 10%-15% lower than serum/plasma values. (CLIA ID [id number]) Performed By: #### B GLU #### [facility] [address] [place] [address] Glucose [Mass/Vol] 92 mg/dL Normal 70-100 [facility] Comment on above: Result Comment: Test performed by glucose meter. Results may be 10%-15% lower than serum/plasma values. (CLIA ID [id number]) Performed By: #### B GLU ####[facility] [address] [place] [address] Glucose [Mass/Vol] 85 mg/dL Normal 70-100 [facility] Comment on above: Result Comment: Test performed by glucose meter. Results may be 10%-15% lower than serum/plasma values. (CLIA ID [id number]) Performed By: #### B GLU #### [facility] [address] [place] [address] Glucose [Mass/Vol] 95 mg/dL Normal 70-100 [facility] Comment on above: Result Comment: Test performed by glucose meter. Results may be 10%-15% lower than serum/plasma values. (CLIA ID [id number]) Performed By: #### B GLU #### [facility] [address] [place] [address] Glucose [Mass/Vol] 111 mg/dL High 70-100 [facility] Comment on above: Result Comment: Test performed by glucose meter. Results may be 10%-15% lower than serum/plasma values. (CLIA ID [id number]) Performed By: #### B GLU #### [facility] IPXI [facility] [address] [facility] [place] [address] Glucose [Mass/Vol] 149 mg/dL High 70-100 [facility] Comment on above: Result Comment: Test performed by glucose meter. Results may be 10%-15% lower than serum/plasma values. (CLIA ID [id number]) Performed By: #### B GLU #### [facility] [address] [place] [address] Glucose [Mass/Vol] 153 mg/dL High 70-100 [facility] Comment on above: Result Comment: Test performed by glucose meter. Results may be 10%-15% lower than serum/plasma values. (CLIA ID [id number]) Performed By: #### B GLU #### [facility] [address] [facility] [place] [address] Glucose [Mass/Vol] 165 mg/dL High 70-100 [facility] Comment on above: Result Comment: Test performed by glucose meter. Results may be 10%-15% lower than serum/plasma values. (CLIA ID [id number]) Performed By: #### B GLU #### [facility] IPXI [facility] [address] [place] [address] Glucose [Mass/Vol] 150 mg/dL High 70-100 [facility] Comment on above: Result Comment: Test performed by glucose meter. Results may be 10%-15% lower than serum/plasma values. (CLIA ID [id number]) Performed By: #### B GLU #### [facility] IPXI [facility] [address] [facility] [place] [address] Glucose [Mass/Vol] 172 mg/dL High 70-100 [facility] Comment on above: Result Comment: Test performed by glucose meter. Results may be 10%-15% lower than serum/plasma values. (CLIA ID [id number]) Performed By: #### B GLU #### [facility] [address] [place] [address] Glucose [Mass/Vol] 112 mg/dL High 70-100 [facility] Comment on above: Result Comment: Test performed by glucose meter. Results may be 10%-15% lower than serum/plasma values. (CLIA ID [id number]) Performed By: #### B GLU ####[facility] [address] [facility] [address] Glucose [Mass/Vol] 96 mg/dL Normal 70-100 [facility] Comment on above: Result Comment: Test performed by glucose meter. Results may be 10%-15% lower than serum/plasma values. (CLIA ID [id number]) Performed By: #### B GLU ####[facility] [address] [place] [address] Glucose [Mass/Vol] 95 mg/dL Normal 70-100 [facility] Comment on above: Result Comment: Test performed by glucose meter. Results may be 10%-15% lower than serum/plasma values. (CLIA ID [id number]) Performed By: #### B GLU ####[facility] [facility] [address] Glucose [Mass/Vol] 136 mg/dL High 70-100 [facility] Comment on above: Result Comment: Test performed by glucose meter. Results may be 10%-15% lower than serum/plasma values. (CLIA ID [id number]) Performed By: #### B GLU ####[facility] [address] [place] [address] Glucose [Mass/Vol] 162 mg/dL High 70-100 [facility] Comment on above: Result Comment: Test performed by glucose meter. Results may be 10%-15% lower than serum/plasma values. (CLIA ID [id number]) Performed By: #### B GLU ####[facility] [address] [place] [address] Hematologyon 03-01-2019 ABO and Rh group Nom (Bld) [address] [facility], [place] Hemogramon 03-01-2019 Erythrocyte distribution width (RBC) [Ratio] 13.5 % Normal 11.5-14.5 [facility] Comment on above: Performed By: #### H SANGEETA AVILA3, MG3 ####[address] [place], [place] Hematocrit (Bld) [Volume fraction] 34.2 % Low 35.0-47.0 [facility] Comment on above: Performed By: #### H AUSTIN BMP3, MG3 ####[address] [place], [place] Hemoglobin (Bld) [Mass/Vol] 11.1 g/dL Low 11.7-16.0 [facility] Comment on above: Performed By: #### Papito AVILA BMP3, MG3 ####[address] MCH (RBC) [Entitic mass] 30.1 pg Normal 26.0-34.0 [facility] Comment on above: Performed By: #### H SANGEETA AVILA3, MG3 ####[address] [place], [place] MCHC (RBC) [Mass/Vol] 32.4 % Normal 32.0-36.0 [facility] Comment on above: Performed By: #### H AUSTIN BMP3, MG3 ####[address] MCV (RBC) [Entitic vol] 92.9 fL Normal 79.0-98.0 [facility] Comment on above: Performed By: #### H AUSTIN BMP3, MG3 ####[address] [place], [place] Platelet mean volume (Bld) [Entitic vol] 9.8 fL Normal 7.4-10.4 [facility] Comment on above: Performed By: #### Papito AVILA BMP3, MG3 ####[address] [place] Platelets (Bld) [#/Vol] 151 10*3/uL Normal 140-440 [facility] Comment on above: Performed By: #### H AUSTIN, BMP3, MG3 ####[facility] [place], [place] RBC (Bld) [#/Vol] 3.68 10*6/uL Low 3.80-5.20 [facility] Comment on above: Performed By: #### H GILLESG, BMP3, MG3 ####[facility] [place], [place] WBC (Bld) [#/Vol] 17.8 10*3/uL High 3.6-10.7 [facility] Comment on above: Performed By: #### H AUSTIN, BMP3, MG3 ####[facility] [place], [place] Leukodepleted Red Cellson Leukodepleted Red Cells Leukodepleted Red Cells: [id number] released 03/01/19 07:45 JMV Unit Blood Type: A Unit Blood Rh: POS Blood Product Code: AS1 Unit Number: [id number] Unit Status: released Barcoded Unit Number: =[id number] Barcoded Product Code: = Barcoded ABO/Rh: =%6200 Unit Expiration: [id number] Leukodepleted Red Cells: [id number] released 03/01/19 07:45 JMV Unit Blood Type: A Unit Blood Rh: POS Blood Product Code: AS1 Unit Number: [id number] Unit Status: released Barcoded Unit Number: =[id number] Barcoded Product Code: = Barcoded ABO/Rh: =%6200 Unit Expiration: [id number] Normal [facility] Comment on above: Performed By: #### H EMOG, CMP3M #### [facility] [address], [place] Magnesiumon 03-01-2019 Magnesium [Mass/Vol] 2.1 mg/dL Normal 1.6-2.3 [facility] Comment on above: Performed By: #### H EMO, BMP3, MG3 ####[facility] [place] [address] Magnesium [Mass/Vol] 2.1 mg/dL 1.6 - 2 .3 mg/dL [place], [place] Metabolic Panelon 03-01-2019 Sodium [Moles/Vol] [id number] [place], [place] Sodium [Moles/Vol] [id number] mmol/L [place], [place] Sodium [Moles/Vol] released [place], [place] Otheron 03-01-2019 Test Performed by [facility], [facility] [address] Test Performed by [facility], [facility] [address] POCT Glucoseon 03-01-2019 Glucose [Mass/Vol] 334 mg/dL High 70 - 100 mg/dL [place] Comment on above: Test performed by gl ucose meter. Results may be 10%-15% lower than serum/plasma values. (CLIA ID [id number]) Interpretation and review of laboratory results Abnormal [place] Test Performed by [facility], [facility] [address] [place], [place] [address] [place] [address] Glucose [Mass/Vol] 357 mg/dL High 70 - 100 mg/dL [place] Comment on above: Test performed by gl ucose meter. Results may be 10%-15% lower than serum/plasma values. (CLIA ID [id number]) Interpretation and review of laboratory results Abnormal [place] Test Performed by [facility], [facility] [address] [place], [place] [address] [place] [address] Glucose [Mass/Vol] 85 mg/dL 70 - 100 mg/dL [place], [place] Comment on above: Test performed by gl ucose meter. Results may be 10%-15% lower than serum/plasma values. (CLIA ID [id number]) Test Performed by [facility], [facility] [address] [place] [address] [facility] Glucose [Mass/Vol] 95 mg/dL 70 - 100 mg/dL [facility] [place] Comment on above: Test performed by gl ucose meter. Results may be 10%-15% lower than serum/plasma values. (CLIA ID [id number]) Test Performed by [facility], [address] [place] [address] [facility] Glucose [Mass/Vol] 111 mg/dL High 70 - 100 mg/dL [facility] [place] Comment on above: Test performed by gl ucose meter. Results may be 10%-15% lower than serum/plasma values. (CLIA ID [id number]) Interpretation and review of laboratory results Abnormal [facility] [place] Test Performed by [facility], [address] [place] [place] [address] [facility] Glucose [Mass/Vol] 149 mg/dL High 70 - 100 mg/dL [facility] [place] Comment on above: Test performed by gl ucose meter. Results may be 10%-15% lower than serum/plasma values. (CLIA ID [id number]) Interpretation and review of laboratory results Abnormal [facility] [place] Test Performed by [facility], [address] [place] [address] [facility] [place] Glucose [Mass/Vol] 153 mg/dL High 70 - 100 mg/dL [facility] [place] Comment on above: Test performed by gl ucose meter. Results may be 10%-15% lower than serum/plasma values. (CLIA ID [id number]) Interpretation and review of laboratory results Abnormal [facility] [place] Test Performed by [employer] [facility] [facility], [address] [place] [address] [facility] [place] Glucose [Mass/Vol] 165 mg/dL High 70 - 100 mg/dL [facility] [place] Comment on above: Test performed by gl ucose meter. Results may be 10%-15% lower than serum/plasma values. (CLIA ID [id number]) Interpretation and review of laboratory results Abnormal [facility] [place] Test Performed by [employer] [facility], [address] [place] [address] [facility] Glucose [Mass/Vol] 150 mg/dL High 70 - 100 mg/dL [facility] [place] Comment on above: Test performed by gl ucose meter. Results may be 10%-15% lower than serum/plasma values. (CLIA ID [id number]) Interpretation and review of laboratory results Abnormal [facility] [place] Test Performed by [facility], [address] [place] [address] [facility] [place] Glucose [Mass/Vol] 172 mg/dL High 70 - 100 mg/dL [facility] [place] Comment on above: Test performed by gl ucose meter. Results may be 10%-15% lower than serum/plasma values. (CLIA ID [id number]) Interpretation and review of laboratory results Abnormal [facility] [place] Test Performed by [facility], [address] [place] [place] [address] [facility] Glucose [Mass/Vol] 112 mg/dL High 70 - 100 mg/dL [facility] Comment on above: Test performed by gl ucose meter. Results may be 10%-15% lower than serum/plasma values. (CLIA ID [id number]) Interpretation and review of laboratory results Abnormal [facility] [place] Test Performed by [facility], [address] [place] [address] [facility] Glucose [Mass/Vol] 96 mg/dL 70 - 100 mg/dL [facility] Comment on above: Test performed by gl ucose meter. Results may be 10%-15% lower than serum/plasma values. (CLIA ID [id number]) Test Performed by [facility], [address] [place] [address] [facility] [place] Glucose [Mass/Vol] 95 mg/dL 70 - 100 mg/dL [facility] [place] Comment on above: Test performed by gl ucose meter. Results may be 10%-15% lower than serum/plasma values. (CLIA ID [id number]) Test Performed by [facility], [address] [place] [address] [place], [place] PREPARE RBC (CROSSMATCH), 2 Unitson 03-01-2019 Blood product unit ID (Dose) [#] [id number] [place], [place] Blood product unit ID (Dose) [#] [id number] [place], [place] Potassiumon 03-01-2019 Potassium [Moles/Vol] 5.4 mmol/L High 3.5-5.1 [facility] Comment on above: Performed By: #### B GLU #### [facility] [address] [place] [address] Interpretation and review of laboratory results Abnormal [place], [place] Potassium [Moles/Vol] 5.4 mmol/L High 3.5 - 5.1 mmol/L [place], [place] Test Performed by [facility], [facility] [place] [address] [place], [place] XR CHEST PORTABLEon 03-01-20 19 Patient Name: CHRISTY FRANCIS ---Diagnostic Radiology--- Exam Date/Time 03/01/2019 07:10:13 EST Exam CR Chest Portable Ordering Physician GRANT TAYLOR Accession Number [id number] CPT4 Codes 29132 () Reason For Exam sob Report CLINICAL INFORMATION: Shortness of breath. Status post open heart surgery. CHEST X-RAY, PORTABLE, 0537 hours: An AP portable view is compared to the prior examination of previous day. There is no change in the mediastinal or left lower hemithorax chest tubes or right internal jugular [place] introducer sheath. There is stable slightly limited lung volumes. No pneumothorax or other acute process or interval change identified. Report Dictated on --- Final --- Dictated: 03/01/2019 7:23 am Dictating Physician: MD JIMENEZ HARLAN Signed Date and Time: 03/01/2019 7:25 am Signed by: MD JIMENEZ HARLAN Transcribed Date and Time: 03/01/2019 7:23 [place], [place] Kathie Torres Incoming Radiology Results From [facility] - 03/01/2019 7:26 AM EST Patient Name: CHRISTY FRANCIS ---Diagnostic Radiology--- Exam Date/Time 03/01/2019 07:10:13 EST Exam CR Chest Portable Ordering Physician GRANT TAYLOR Accession Number [id number] CPT4 Codes 15011 () Reason For Exam sob Report CLINICAL INFORMATION: Shortness of breath. Status post open heart surgery. CHEST X-RAY, PORTABLE, 0537 hours: An AP portable view is compared to the prior examination of previous day. There is no change in the mediastinal or left lower hemithorax chest tubes or right internal jugular [place] introducer sheath. There is stable slightly limited lung volumes. No pneumothorax or other acute process or interval change identified. Report Dictated on --- Final --- Dictated: 03/01/2019 7:23 am Dictating Physician: MD JIMENEZ HARLAN Signed Date and Time: 03/01/2019 7:25 am Signed by: MD JIMENEZ HARLAN Transcribed Date and Time: 03/01/2019 7:23 [place], [place] Basic Metabolic Panelon 02-17 Calcium [Mass/Vol] 9.3 mg/dL Normal 8.4-10.4 [facility] Comment on above: Performed By: #### B GLU #### [address] [place], [place] Anion gap [Moles/Vol] 14 Normal [facility] Comment on above: Performed By: #### B GLU #### [facility] [address] [place], [place] CO2 [Moles/Vol] 18 mmol/L Low 22-30 [facility] Comment on above: Performed By: #### B GLU #### [facility] [address] [place], [place] Creatinine [Mass/Vol] 1.35 mg/dL High 0.52-1.25 [facility] Comment on above: Performed By: #### B GLU #### [facility] [address] [place], [place] GFR/1.73 sq M predicted among blacks MDRD (S/P/Bld) [Vol rate/Area] 47.1 mL/min/{1.73_m2} Normal >60 [facility] Comment on above: Performed By: #### B GLU #### [facility] [address] [place], [place] GFR/1.73 sq M predicted among non-blacks MDRD (S/P/Bld) [Vol rate/Area] 38.9 mL/min/{1.73_m2} Normal >60 [facility] Comment on above: Result Comment: Sour ce- MDRD equation with creatinine calibration to IDMS(NKDEP) eGFR not recommended for drug dose adjustment Performed By: #### B GLU #### [address] [place], [place] Glucose [Mass/Vol] 127 mg/dL High 70-100 [facility] Comment on above: Performed By: #### B GLU #### [address] [place], [place] Urea nitrogen [Mass/Vol] 25 mg/dL High 7-20 [facility] Comment on above: Performed By: #### B GLU #### [address] [place], [place] Chloride [Moles/Vol] 109 mmol/L High 98-107 [facility] Comment on above: Performed By: #### B GLU #### [address] [place], [place] Potassium [Moles/Vol] 4.7 mmol/L Normal 3.5-5.1 [facility] Comment on above: Performed By: #### B GLU #### [address] [place], [place] Sodium [Moles/Vol] 141 mmol/L Normal 135-145 [facility] Comment on above: Performed By: #### B GLU #### [address] [place], [place] Anion gap [Moles/Vol] 14 mmol/L [facility] [place], [place] Calcium [Mass/Vol] 9.3 mg/dL 8.4 - 10. 4 mg/dL [facility], [place] Chloride [Moles/Vol] 109 mmol/L High 98 - 10 7 mmol/L [place], [place] CO2 [Moles/Vol] 18 mmol/L Low 22 - 30 mmol/L [place] Creatinine [Mass/Vol] 1.35 mg/dL High 0.52 - 1.25 mg/dL [place], [place] EGFR IF NonAfrican [place] 38.9 mL/min >60 [place] Comment on above: Source- MDRD equatio n with creatinine calibration to IDMS(NKDEP) eGFR not recommended for drug dose adjustment GFR/1.73 sq M predicted among blacks MDRD (S/P/Bld) [Vol rate/Area] 47.1 mL/min/{1.73_m2} >60 [place] Glucose [Mass/Vol] 127 mg/dL High 70 - 100 mg/dL [place] Potassium [Moles/Vol] 4.7 mmol/L 3.5 - 5.1 mmol/L [place] Sodium [Moles/Vol] 141 mmol/L 135 - 145 mmol/L [place] Urea nitrogen [Mass/Vol] 25 mg/dL High 7 - 20 mg/dL [place] Test Performed by [address] [address] [place], [place] Potassium [Moles/Vol] 7.0 mmol/L Critically high 3.5-5.1 [facility] Comment on above: Result Comment: repe ated Performed By: #### B GLU #### [address] [place] Calcium [Mass/Vol] 9.2 mg/dL Normal 8.4-10.4 [facility] Comment on above: Performed By: #### B GLU #### [address] Glucose [Mass/Vol] 115 mg/dL High 70-100 [facility] Comment on above: Performed By: #### B GLU #### [address] [place], [place] Anion gap [Moles/Vol] 9 Normal [facility] Comment on above: Performed By: #### B GLU #### [facility] [address] [place] [address] CO2 [Moles/Vol] 21 mmol/L Low 22-30 [facility] Comment on above: Performed By: #### B GLU #### [address] [place] [address] Creatinine [Mass/Vol] 1.18 mg/dL Normal 0.52-1.25 [facility] Comment on above: Performed By: #### B GLU #### [address] [place] [address] GFR/1.73 sq M predicted among blacks MDRD (S/P/Bld) [Vol rate/Area] 55.0 mL/min/{1.73_m2} Normal >60 [facility] Comment on above: Performed By: #### B GLU #### [address] [place] GFR/1.73 sq M predicted among non-blacks MDRD (S/P/Bld) [Vol rate/Area] 45.4 mL/min/{1.73_m2} Normal >60 [facility] Comment on above: Result Comment: Sour ce- MDRD equation with creatinine calibration to IDMS(NKDEP) eGFR not recommended for drug dose adjustment Performed By: #### B GLU #### [address] [place] Urea nitrogen [Mass/Vol] 25 mg/dL High 7-20 [facility] Comment on above: Performed By: #### B GLU #### [address] [place] Chloride [Moles/Vol] 110 mmol/L High 98-107 [facility] Comment on above: Performed By: #### B GLU #### [address] [place] Sodium [Moles/Vol] 139 mmol/L Normal 135-145 [facility] Comment on above: Performed By: #### B GLU #### [address] [address] [place] [address] Anion gap [Moles/Vol] 9 mmol/L [place], [place] Calcium [Mass/Vol] 9.2 mg/dL 8.4 - 10. 4 mg/dL [place] Chloride [Moles/Vol] 110 mmol/L High 98 - 10 7 mmol/L [place] CO2 [Moles/Vol] 21 mmol/L Low 22 - 30 mmol/L [place] Creatinine [Mass/Vol] 1.18 mg/dL 0.52 - 1.25 mg/dL [place] EGFR IF NonAfrican [place] 45.4 mL/min >60 [place] Comment on above: Source- MDRD equatio n with creatinine calibration to IDMS(NKDEP) eGFR not recommended for drug dose adjustment GFR/1.73 sq M predicted among blacks MDRD (S/P/Bld) [Vol rate/Area] 55.0 mL/min/{1.73_m2} >60 [place] Glucose [Mass/Vol] 115 mg/dL High 70 - 100 mg/dL [place] Interpretation and review of laboratory results Abnormal [place] Potassium [Moles/Vol] 7.0 mmol/L Critically high 3.5 - 5.1 mmol/L [place] Comment on above: repeated Sodium [Moles/Vol] 139 mmol/L 135 - 145 mmol/L [place] Urea nitrogen [Mass/Vol] 25 mg/dL High 7 - 20 mg/dL [place] Test Performed by [facility], [address] [place] [address] [place], [place] CBCon 02-28-2019 Erythrocyte distribution width (RBC) [Ratio] 13.1 % 11.5 - 14.5 % [place] Hematocrit (Bld) [Volume fraction] 34.8 % Low 35 - 47 % [place] Hemoglobin (Bld) [Mass/Vol] 11.4 g/dL Low 11.7 - 16 g/dL [place] Interpretation and review of laboratory results Abnormal [place] MCH (RBC) [Entitic mass] 30.3 pg 26 - 34 pg [place] MCHC (RBC) [Mass/Vol] 32.8 % 32 - 36 % [place], [place] MCV (RBC) [Entitic vol] 92.3 fL 79 - 98 fL [place] Platelet mean volume (Bld) [Entitic vol] 10.1 fL 7.4 - 10.4 fL [place] Platelets (Bld) [#/Vol] 160 10*3/uL 140 - 440 10*3/uL [place] RBC (Bld) [#/Vol] 3.78 10*6/uL Low 3.8 - 5.2 10*6/uL [place] WBC (Bld) [#/Vol] 18.8 10*3/uL High 3.6 - 10.7 10*3/uL [place] Test Performed by [id number] [place] [address] CR Chest Portableon 02-29-20 19 CR Chest Portable Patient Name: CHRISTY FRANCIS Diagnostic Radiology Exam Date/Time 02/28/2019 07:24:40 EST Exam CR Chest Portable Ordering Physician GRANT TAYLOR Accession Number [id number] CPT4 Codes 31173 () Reason For Exam POST OPEN HEART Report CHEST - PORTABLE: CLINICAL INDICATION: Respiratory distress for follow up TECHNIQUE: Portable AP COMPARISON: One day ago FINDINGS: Life support devices: Right jugular venous sheath is noted. The [place]-Jose catheter has been removed. 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1950 Requested By: Order Number: [id number] Reading MD: Bryce Hayden Measurements Intervals Sodus Rate: 95 P: 61 TN: 146 QRS: 11 QRSD: 85 T: 93 QT: 321 QTc: 404 Interpretive Statements Sinus rhythm Left atrial enlargement Nonspecific T abnormalities, lateral leads Electronically Signed On 02-28-2019 12:56:39 EST [facility], [facility] Incoming Cardiology Results From [employer]ge[employer] - 02/28/2019 12:57 PM EST [facility] Test Date: 2019-02-28 Pat Name: Christy Francis Department: [facility] Room: [facility] 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 70-100 [facility] Comment on above: Result Comment: Test performed by glucose meter. Results may be 10%-15% lower than serum/plasma values. (CLIA ID [id number]) Performed By: #### B GLU ####[address] [address] Glucose [Mass/Vol] 196 mg/dL High 70-100 [facility] Comment on above: Result Comment: Test performed by glucose meter. Results may be 10%-15% lower than serum/plasma values. (CLIA ID [id number]) Performed By: #### B GLU #### [facility] [address] [place] [address] Glucose [Mass/Vol] 135 mg/dL High 70-100 [facility] Comment on above: Result Comment: Test performed by glucose meter. Results may be 10%-15% lower than serum/plasma values. (CLIA ID [id number]) Performed By: #### B GLU #### [facility] [address] [facility] [place] [address] Glucose [Mass/Vol] 121 mg/dL High 70-100 [facility] Comment on above: Result Comment: Test performed by glucose meter. Results may be 10%-15% lower than serum/plasma values. (CLIA ID [id number]) Performed By: #### B GLU #### [facility] [address] [place] [address] Glucose [Mass/Vol] 76 mg/dL Normal 70-100 [facility] Comment on above: Result Comment: Test performed by glucose meter. Results may be 10%-15% lower than serum/plasma values. (CLIA ID [id number]) Performed By: #### B GLU #### [facility] [address] [facility] [place] [address] Glucose [Mass/Vol] 76 mg/dL Normal 70-100 [facility] Comment on above: Result Comment: Test performed by glucose meter. Results may be 10%-15% lower than serum/plasma values. (CLIA ID [id number]) Performed By: #### B GLU #### [facility] [address] [place] [address] Glucose [Mass/Vol] 90 mg/dL Normal 70-100 [facility] Comment on above: Result Comment: Test performed by glucose meter. Results may be 10%-15% lower than serum/plasma values. (CLIA ID [id number]) Performed By: #### B GLU #### [facility] [address] [place] [address] Glucose [Mass/Vol] 97 mg/dL Normal 70-100 [facility] Comment on above: Result Comment: Test performed by glucose meter. Results may be 10%-15% lower than serum/plasma values. (CLIA ID [id number]) Performed By: #### B GLU #### [facility] [address] [place] [address] Glucose [Mass/Vol] 123 mg/dL High 70-100 [facility] Comment on above: Result Comment: Test performed by glucose meter. Results may be 10%-15% lower than serum/plasma values. (CLIA ID [id number]) Performed By: #### B GLU #### [facility] [address] [place] [address] Glucose [Mass/Vol] 133 mg/dL High 70-100 [facility] Comment on above: Result Comment: Test performed by glucose meter. Results may be 10%-15% lower than serum/plasma values. (CLIA ID [id number]) Performed By: #### B GLU #### [facility] [address] [place] [address] Glucose [Mass/Vol] 115 mg/dL High 70-100 [facility] Comment on above: Result Comment: Test performed by glucose meter. Results may be 10%-15% lower than serum/plasma values. (CLIA ID [id number]) Performed By: #### B GLU #### [facility] [address] [place] [address] Glucose [Mass/Vol] 138 mg/dL High 70-100 [place] Comment on above: Test performed by gl ucose meter. Results may be 10%-15% lower than serum/plasma values. (CLIA ID [id number]) Result Comment: Test performed by glucose meter. Results may be 10%-15% lower than serum/plasma values. (CLIA ID [id number]) Performed By: #### B GLU #### [facility] [address] [place] [address] Glucose [Mass/Vol] 135 mg/dL High 70-100 [facility] Comment on above: Result Comment: Test performed by glucose meter. Results may be 10%-15% lower than serum/plasma values. (CLIA ID [id number]) Performed By: #### B GLU #### [facility] [address] [place] [address] Glucose [Mass/Vol] 134 mg/dL High 70-100 [facility] Comment on above: Result Comment: Test performed by glucose meter. Results may be 10%-15% lower than serum/plasma values. (CLIA ID [id number]) Performed By: #### B GLU #### [facility] [address] [place] [address] Glucose [Mass/Vol] 143 mg/dL High 70-100 [facility] Comment on above: Result Comment: Test performed by glucose meter. Results may be 10%-15% lower than serum/plasma values. (CLIA ID [id number]) Performed By: #### B GLU #### [facility] [address] [place] [address] Glucose [Mass/Vol] 110 mg/dL High 70-100 [facility] Comment on above: Result Comment: Test performed by glucose meter. Results may be 10%-15% lower than serum/plasma values. (CLIA ID [id number]) Performed By: #### B GLU #### [facility] [address] [place] [address] Glucose [Mass/Vol] 155 mg/dL High 70-100 [place] Comment on above: Test performed by gl ucose meter. Results may be 10%-15% lower than serum/plasma values. (CLIA ID [id number]) Result Comment: Test performed by glucose meter. Results may be 10%-15% lower than serum/plasma values. (CLIA ID [id number]) Performed By: #### B GLU #### [facility] [address] [place] [address] Glucose [Mass/Vol] 104 mg/dL High 70-100 [facility] Comment on above: Result Comment: Test performed by glucose meter. Results may be 10%-15% lower than serum/plasma values. (CLIA ID [id number]) Performed By: #### B GLU #### [facility] [address] [place] [address] Glucose [Mass/Vol] 82 mg/dL Normal 70-100 [facility] Comment on above: Result Comment: Test performed by glucose meter. Results may be 10%-15% lower than serum/plasma values. (CLIA ID [id number]) Performed By: #### B GLU #### [facility] [address] [facility] [place] [address] Glucose [Mass/Vol] 92 mg/dL Normal 70-100 [place] Comment on above: Test performed by gl ucose meter. Results may be 10%-15% lower than serum/plasma values. (CLIA ID [id number]) Result Comment: Test performed by glucose meter. Results may be 10%-15% lower than serum/plasma values. (CLIA ID [id number]) Performed By: #### B GLU #### [facility] [address] [place] [address] Glucose [Mass/Vol] 110 mg/dL High 70-100 [facility] Comment on above: Result Comment: Test performed by glucose meter. Results may be 10%-15% lower than serum/plasma values. (CLIA ID [id number]) Performed By: #### B GLU #### [facility] [address] [place] [address] Glucose [Mass/Vol] 122 mg/dL High 70-100 [facility] Comment on above: Result Comment: Test performed by glucose meter. Results may be 10%-15% lower than serum/plasma values. (CLIA ID [id number]) Performed By: #### B GLU #### [facility] [address] [facility] [place] [address] Glucose [Mass/Vol] 152 mg/dL High 70-100 [facility] Comment on above: Result Comment: Test performed by glucose meter. Results may be 10%-15% lower than serum/plasma values. (CLIA ID [id number]) Performed By: #### B GLU #### [facility] [employer] [address] [place] [address] Glucose [Mass/Vol] 156 mg/dL High 70-100 [facility] Comment on above: Result Comment: Test performed by glucose meter. Results may be 10%-15% lower than serum/plasma values. (CLIA ID [id number]) Performed By: #### B GLU #### [address] [address] [place], [place] Hemogramon 02-28-2019 Erythrocyte distribution width (RBC) [Ratio] 13.1 % Normal 11.5-14.5 [facility] Comment on above: Performed By: #### B GLU #### [address] [place] Hematocrit (Bld) [Volume fraction] 34.8 % Low 35.0-47.0 [facility] Comment on above: Performed By: #### B GLU #### [address] [place] Hemoglobin (Bld) [Mass/Vol] 11.4 g/dL Low 11.7-16.0 [facility] Comment on above: Performed By: #### B GLU #### [address] [place] MCH (RBC) [Entitic mass] 30.3 pg Normal 26.0-34.0 [facility] Comment on above: Performed By: #### B GLU #### [address] [place] MCHC (RBC) [Mass/Vol] 32.8 % Normal 32.0-36.0 [facility] Comment on above: Performed By: #### B GLU #### [address] MCV (RBC) [Entitic vol] 92.3 fL Normal 79.0-98.0 [facility] Comment on above: Performed By: #### B GLU #### [address] Platelet mean volume (Bld) [Entitic vol] 10.1 fL Normal 7.4-10.4 [facility] Comment on above: Performed By: #### B GLU #### [address] [place] Platelets (Bld) [#/Vol] 160 10*3/uL Normal 140-440 [facility] Comment on above: Performed By: #### B GLU #### [facility] [address] [place], [place] RBC (Bld) [#/Vol] 3.78 10*6/uL Low 3.80-5.20 [facility] Comment on above: Performed By: #### B GLU #### [facility] [address] [place], [place] WBC (Bld) [#/Vol] 18.8 10*3/uL High 3.6-10.7 [facility] Comment on above: Performed By: #### B GLU #### [facility] [address] [place], [place] Otheron 02-28-2019 Interpretation and review of laboratory results Abnormal [facility] [place] POCT Glucoseon 02-28-2019 Glucose [Mass/Vol] 136 mg/dL High 70 - 100 mg/dL [place] Comment on above: Test performed by gl ucose meter. Results may be 10%-15% lower than serum/plasma values. (CLIA ID [id number]) Interpretation and review of laboratory results Abnormal [employer] Test Performed by [facility], [address] [place] [address] [place], [place] Glucose [Mass/Vol] 162 mg/dL High 70 - 100 mg/dL [place] Comment on above: Test performed by gl ucose meter. Results may be 10%-15% lower than serum/plasma values. (CLIA ID [id number]) Interpretation and review of laboratory results Abnormal [employer] Test Performed by [facility], [address] [place] [address] [place] Glucose [Mass/Vol] 214 mg/dL High 70 - 100 mg/dL [place] Comment on above: Test performed by gl ucose meter. Results may be 10%-15% lower than serum/plasma values. (CLIA ID [id number]) Interpretation and review of laboratory results Abnormal [facility] [place] Test Performed by [facility], [address] [place] [address] [facility] [place] Glucose [Mass/Vol] 196 mg/dL High 70 - 100 mg/dL [facility] [place] Comment on above: Test performed by gl ucose meter. Results may be 10%-15% lower than serum/plasma values. (CLIA ID [id number]) Interpretation and review of laboratory results Abnormal [facility] [place] Test Performed by [facility], [address] [place] [address] [facility] [place] Glucose [Mass/Vol] 135 mg/dL High 70 - 100 mg/dL [facility] [place] Comment on above: Test performed by gl ucose meter. Results may be 10%-15% lower than serum/plasma values. (CLIA ID [id number]) Interpretation and review of laboratory results Abnormal [facility] [place] Test Performed by [facility], [address] [place] [address] [facility] [place] Glucose [Mass/Vol] 121 mg/dL High 70 - 100 mg/dL [facility] Comment on above: Test performed by gl ucose meter. Results may be 10%-15% lower than serum/plasma values. (CLIA ID [id number]) Interpretation and review of laboratory results Abnormal [facility] [place] Test Performed by [facility], [address] [place] [address] [facility] Glucose [Mass/Vol] 76 mg/dL 70 - 100 mg/dL [facility] [place] Comment on above: Test performed by gl ucose meter. Results may be 10%-15% lower than serum/plasma values. (CLIA ID [id number]) Test Performed by [facility], [address] [place] [address] [facility] [place] Glucose [Mass/Vol] 76 mg/dL 70 - 100 mg/dL [facility] [place] Comment on above: Test performed by gl ucose meter. Results may be 10%-15% lower than serum/plasma values. (CLIA ID [id number]) Test Performed by [facility], [address] [place] [address] [facility] [place] Glucose [Mass/Vol] 90 mg/dL 70 - 100 mg/dL [facility] [place] Comment on above: Test performed by gl ucose meter. Results may be 10%-15% lower than serum/plasma values. (CLIA ID [id number]) Test Performed by [facility], [address] [place] [address] [facility] [place] Glucose [Mass/Vol] 97 mg/dL 70 - 100 mg/dL [facility] [place] Comment on above: Test performed by gl ucose meter. Results may be 10%-15% lower than serum/plasma values. (CLIA ID [id number]) Test Performed by [facility], [address], [place] [address] [facility] [place] Glucose [Mass/Vol] 123 mg/dL High 70 - 100 mg/dL [facility] [place] Comment on above: Test performed by gl ucose meter. Results may be 10%-15% lower than serum/plasma values. (CLIA ID [id number]) Interpretation and review of laboratory results Abnormal [facility] [place] Test Performed by [facility], [address] [place] [address] [facility] [place] Glucose [Mass/Vol] 133 mg/dL High 70 - 100 mg/dL [facility] [place] Comment on above: Test performed by gl ucose meter. Results may be 10%-15% lower than serum/plasma values. (CLIA ID [id number]) Interpretation and review of laboratory results Abnormal [facility] [place] Test Performed by [facility], [address] [place] [address] [facility] [place] Glucose [Mass/Vol] 115 mg/dL High 70 - 100 mg/dL [facility] [place] Comment on above: Test performed by gl ucose meter. Results may be 10%-15% lower than serum/plasma values. (CLIA ID [id number]) Interpretation and review of laboratory results Abnormal [facility] [place] Test Performed by [facility], [address] [place] [address] [facility] [place] Glucose [Mass/Vol] 135 mg/dL High 70 - 100 mg/dL [facility] [place] Comment on above: Test performed by gl ucose meter. Results may be 10%-15% lower than serum/plasma values. (CLIA ID [id number]) Interpretation and review of laboratory results Abnormal [facility] [place] Test Performed by [facility] [facility], [address] [place] [address] [facility] [place] Glucose [Mass/Vol] 134 mg/dL High 70 - 100 mg/dL [facility] [place] Comment on above: Test performed by gl ucose meter. Results may be 10%-15% lower than serum/plasma values. (CLIA ID [id number]) Interpretation and review of laboratory results Abnormal [facility] [place] Test Performed by [facility], [address] [place] [address] [facility] [place] Glucose [Mass/Vol] 143 mg/dL High 70 - 100 mg/dL [facility] Comment on above: Test performed by gl ucose meter. Results may be 10%-15% lower than serum/plasma values. (CLIA ID [id number]) Interpretation and review of laboratory results Abnormal [facility] Test Performed by [facility], [address] [place] [address] [facility] [place] Glucose [Mass/Vol] 110 mg/dL High 70 - 100 mg/dL [facility] [place] Comment on above: Test performed by gl ucose meter. Results may be 10%-15% lower than serum/plasma values. (CLIA ID [id number]) Interpretation and review of laboratory results Abnormal [facility] [place] Test Performed by [facility], [address] [place] [address] [facility] [place] Glucose [Mass/Vol] 104 mg/dL High 70 - 100 mg/dL [facility] [place] Comment on above: Test performed by gl ucose meter. Results may be 10%-15% lower than serum/plasma values. (CLIA ID [id number]) Interpretation and review of laboratory results Abnormal [facility] Test Performed by [facility], [facility] [place] [address] [facility] Glucose [Mass/Vol] 82 mg/dL 70 - 100 mg/dL [facility] [place] Comment on above: Test performed by gl ucose meter. Results may be 10%-15% lower than serum/plasma values. (CLIA ID [id number]) Test Performed by [facility], [facility] [place] [address] [facility] Test Performed by [place] [address] [place] [address] [facility] Glucose [Mass/Vol] 110 mg/dL High 70 - 100 mg/dL [facility] [place] Comment on above: Test performed by gl ucose meter. Results may be 10%-15% lower than serum/plasma values. (CLIA ID [id number]) Interpretation and review of laboratory results Abnormal [facility] Test Performed by [facility], [address] [place] [address] [facility], [place] Glucose [Mass/Vol] 122 mg/dL High 70 - 100 mg/dL [facility], [place] Comment on above: Test performed by gl ucose meter. Results may be 10%-15% lower than serum/plasma values. (CLIA ID [id number]) Interpretation and review of laboratory results Abnormal [facility] Test Performed by [facility], [address] [place] [address] [facility], [place] Potassiumon 02-28-2019 Potassium [Moles/Vol] 6.7 mmol/L Critically high 3.5-5.1 [facility] Comment on above: Result Comment: Repe ated Performed By: #### B GLU #### [address] [address] Interpretation and review of laboratory results Abnormal [facility] Potassium [Moles/Vol] 6.7 mmol/L Critically high 3.5 - 5.1 mmol/L [place], [place] Comment on above: Repeated Test Performed by [facility], [address] [place] [address] [facility], [place] XR CHEST PORTABLEon 02-29-20 Patient Name: CHRISTY FRANCIS ---Diagnostic Radiology--- Exam Date/Time 02/28/2019 07:24:40 EST Exam CR Chest Portable Ordering Physician GRANT TAYLOR Accession Number [id number] CPT4 Codes 66496 () Reason For Exam POST OPEN HEART Report CHEST - PORTABLE: CLINICAL INDICATION: Respiratory distress for follow up TECHNIQUE: Portable AP COMPARISON: One day ago FINDINGS: Life support devices: Right jugular venous sheath is noted. The [place]-Jose catheter has been removed. Endotracheal tube and [...] JEFFREY Transcribed Date and Time: 02/28/2019 6:53 [place], [place] Brian, [facility] Incoming Radiology Results From [facility] - 02/28/2019 7:25 AM EST Patient Name: CHRISTY FRANCIS ---Diagnostic Radiology--- Exam Date/Time 02/28/2019 07:24:40 EST Exam CR Chest Portable Ordering Physician GRANT TAYLOR Accession Number [id number] CPT4 Codes 46687 () Reason For Exam POST OPEN HEART Report CHEST - PORTABLE: CLINICAL INDICATION: Respiratory distress for follow up TECHNIQUE: Portable AP COMPARISON: One day ago FINDINGS: Life support devices: Right jugular venous sheath is noted. The [place]-Jose catheter has been removed. Endotracheal tube and [...] JEFFREY Transcribed Date and Time: 02/28/2019 6:53 [place], [place] Arterial Blood Gaseson 02-27 CO2 [Moles/Vol] 22.3 mmol/L Low 23.0-27.0 [facility] Comment on above: Performed By: #### Papito AVILA CMP3M #### [facility] [address] [place], [place] HCO3 (Bld) [Moles/Vol] 20.8 mmol/L Low 21.0-25.0 [facility] Comment on above: Performed By: #### Papito AVILA CMP3M #### [facility] [address] [place], [place] Hemoglobin (Bld) [Mass/Vol] 10.4 g/dL Normal ScreenOnly [facility] Comment on above: Performed By: #### H AUSTIN CMP3M #### [facility] [address] [place], [place] Oxygen (Bld) [Partial pressure] 270.6 mm[Hg] High 80.0-100.0 [facility] Comment on above: Performed By: #### H AUSTIN CMP3M #### [facility] [address] [place], [place] Oxygen saturation in Blood 98.8 % Normal 95.0-100.0 [facility] Comment on above: Performed By: #### Papito AVILA CMP3M #### [facility] [address] [place], [place] pCO2 46.0 mm[Hg] High 35.0-45.0 [facility] Comment on above: Performed By: #### H MEGHNA AVILA3M #### [facility] [address] [place], [place] pH (Bld) 7.274 Low 7.350-7.450 [facility] Comment on above: Performed By: #### H MEGHNA AVILA3M #### [facility] [address] [place], [place] Std Base Excess -5.8 mmol/L Low -3.0-3.0 [facility] Comment on above: Performed By: #### H MEGHNA AVILA3M #### [facility] [address] [place], [place] FIO2 100% Normal [facility] Comment on above: Performed By: #### H MEGHNA AVILA3M #### [facility] [address] [place], [place] Basic Metabolic Panelon 11- Calcium [Mass/Vol] 9.7 mg/dL Normal 8.4-10.4 [facility] Comment on above: Performed By: #### B GLU #### [facility] [address] [place], [place] Glucose [Mass/Vol] 164 mg/dL High 70-100 [facility] Comment on above: Performed By: #### B GLU #### [facility] [address] [place], [place] Anion gap [Moles/Vol] 13 Normal [facility] Comment on above: Performed By: #### B GLU #### [facility] [address] [place], [place] CO2 [Moles/Vol] 18 mmol/L Low 22-30 [facility] Comment on above: Performed By: #### B GLU #### [facility] [address] [place], [place] Creatinine [Mass/Vol] 1.13 mg/dL Normal 0.52-1.25 [facility] Comment on above: Performed By: #### B GLU #### [facility] [address] [place], [place] GFR/1.73 sq M predicted among blacks MDRD (S/P/Bld) [Vol rate/Area] 57.9 mL/min/{1.73_m2} Normal >60 [facility] Comment on above: Performed By: #### B GLU #### [address] [address] [address] [place], [place] GFR/1.73 sq M predicted among non-blacks MDRD (S/P/Bld) [Vol rate/Area] 47.7 mL/min/{1.73_m2} Normal >60 [facility] Comment on above: Result Comment: Sour ce- MDRD equation with creatinine calibration to IDMS(NKDEP) eGFR not recommended for drug dose adjustment Performed By: #### B GLU #### [address] [address] [address] [place], [place] Urea nitrogen [Mass/Vol] 24 mg/dL High 7-20 [facility] Comment on above: Performed By: #### B GLU #### [address] [address] [address] [place] Chloride [Moles/Vol] 110 mmol/L High 98-107 [facility] Comment on above: Performed By: #### B GLU #### [address] [address] [address] [place], [place] Potassium [Moles/Vol] 4.0 mmol/L Normal 3.5-5.1 [facility] Comment on above: Performed By: #### B GLU #### [address] [address] [address] [place] Sodium [Moles/Vol] 141 mmol/L Normal 135-145 [facility] Comment on above: Performed By: #### B GLU #### [address] [address] [address] [place], [place] Anion gap [Moles/Vol] 13 mmol/L [facility], [place] Calcium [Mass/Vol] 9.7 mg/dL 8.4 - 10. 4 mg/dL [facility], [place] Chloride [Moles/Vol] 110 mmol/L High 98 - 10 7 mmol/L [facility], [place] CO2 [Moles/Vol] 18 mmol/L Low 22 - 30 mmol/L [place], [place] Creatinine [Mass/Vol] 1.13 mg/dL 0.52 - 1.25 mg/dL [place], [place] EGFR IF NonAfrican [place] 47.7 mL/min >60 [place], [place] Comment on above: Source- MDRD equatio n with creatinine calibration to IDMS(NKDEP) eGFR not recommended for drug dose adjustment GFR/1.73 sq M predicted among blacks MDRD (S/P/Bld) [Vol rate/Area] 57.9 mL/min/{1.73_m2} >60 [place], [place] Glucose [Mass/Vol] 164 mg/dL High 70 - 100 mg/dL [place] Potassium [Moles/Vol] 4.0 mmol/L 3.5 - 5.1 mmol/L [place] Sodium [Moles/Vol] 141 mmol/L 135 - 145 mmol/L [place] Urea nitrogen [Mass/Vol] 24 mg/dL High 7 - 20 mg/dL [place] Calcium [Mass/Vol] 10.7 mg/dL High 8.4-10.4 [facility] Comment on above: Performed By: #### B GLU #### [address] [address] [address] [place] Glucose [Mass/Vol] 160 mg/dL High 70-100 [facility] Comment on above: Performed By: #### B GLU #### [address] [address] [address] [place] Urea nitrogen [Mass/Vol] 25 mg/dL High 7-20 [facility] Comment on above: Performed By: #### B GLU #### [address] [address] [address] [place] Anion gap [Moles/Vol] 12 Normal [facility] Comment on above: Performed By: #### B GLU #### [address] [address] [address] [place] CO2 [Moles/Vol] 19 mmol/L Low 22-30 [facility] Comment on above: Performed By: #### B GLU #### [address] [address] [address] [place] Creatinine [Mass/Vol] 1.17 mg/dL Normal 0.52-1.25 [facility] Comment on above: Performed By: #### B GLU #### [address] [address] [address] [place] GFR/1.73 sq M predicted among blacks MDRD (S/P/Bld) [Vol rate/Area] 55.6 mL/min/{1.73_m2} Normal >60 [facility] Comment on above: Performed By: #### B GLU #### [address] [address] [address] [place] GFR/1.73 sq M predicted among non-blacks MDRD (S/P/Bld) [Vol rate/Area] 45.9 mL/min/{1.73_m2} Normal >60 [facility] Comment on above: Result Comment: Sour ce- MDRD equation with creatinine calibration to IDMS(NKDEP) eGFR not recommended for drug dose adjustment Performed By: #### B GLU #### [address] [address] [address] [place] Chloride [Moles/Vol] 110 mmol/L High 98-107 [facility] Comment on above: Performed By: #### B GLU #### [address] [address] [address] [place] Potassium [Moles/Vol] 4.2 mmol/L Normal 3.5-5.1 [facility] Comment on above: Performed By: #### B GLU #### [address] [address] [address] [place] Sodium [Moles/Vol] 140 mmol/L Normal 135-145 [facility] Comment on above: Performed By: #### B GLU #### [address] [address] [address] [place] Anion gap [Moles/Vol] 12 mmol/L [place], [place] Calcium [Mass/Vol] 10.7 mg/dL High 8.4 - 10. 4 mg/dL [place], [place] Chloride [Moles/Vol] 110 mmol/L High 98 - 10 7 mmol/L [place] CO2 [Moles/Vol] 19 mmol/L Low 22 - 30 mmol/L [place] Creatinine [Mass/Vol] 1.17 mg/dL 0.52 - 1.25 mg/dL [place] EGFR IF NonAfrican [place] 45.9 mL/min >60 [place] Comment on above: Source- MDRD equatio n with creatinine calibration to IDMS(NKDEP) eGFR not recommended for drug dose adjustment GFR/1.73 sq M predicted among blacks MDRD (S/P/Bld) [Vol rate/Area] 55.6 mL/min/{1.73_m2} >60 [place] Glucose [Mass/Vol] 160 mg/dL High 70 - 100 mg/dL [place] Potassium [Moles/Vol] 4.2 mmol/L 3.5 - 5.1 mmol/L [place] Sodium [Moles/Vol] 140 mmol/L 135 - 145 mmol/L [place] Urea nitrogen [Mass/Vol] 25 mg/dL High 7 - 20 mg/dL [place] Calcium [Mass/Vol] 9.6 mg/dL Normal 8.4-10.4 [facility] Comment on above: Performed By: #### Papito AVILA CMP3M #### [facility] [address] [place], [place] Glucose [Mass/Vol] 233 mg/dL High 70-100 [facility] Comment on above: Performed By: #### Papito AVILA CMP3M #### [facility] [address] [place], [place] Urea nitrogen [Mass/Vol] 32 mg/dL High 7-20 [facility] Comment on above: Performed By: #### Papito AVILA CMP3M #### [facility] [address] [place], [place] Anion gap [Moles/Vol] 12 Normal [facility] Comment on above: Performed By: #### Papito AVILA CMP3M #### [facility] [address] [place], [place] CO2 [Moles/Vol] 24 mmol/L Normal 22-30 [facility] Comment on above: Performed By: #### Papito AVILA CMP3M #### [address] [address] [address] [place] Creatinine [Mass/Vol] 1.05 mg/dL Normal 0.52-1.25 [facility] Comment on above: Performed By: #### Papito AVILA CMP3M #### [address] [address] [address] [place] GFR/1.73 sq M predicted among blacks MDRD (S/P/Bld) [Vol rate/Area] mL/min/{1.73_m2} Normal >60 [facility] Comment on above: Performed By: #### Papito AVILA CMP3M #### [address] [address] [place], [place] GFR/1.73 sq M predicted among non-blacks MDRD (S/P/Bld) [Vol rate/Area] 52.0 mL/min/{1.73_m2} Normal >60 [facility] Comment on above: Result Comment: Sour ce- MDRD equation with creatinine calibration to IDMS(NKDEP) eGFR not recommended for drug dose adjustment Performed By: #### Papito AVILA CMP3M #### [address] [place] Chloride [Moles/Vol] 103 mmol/L Normal 98-107 [facility] Comment on above: Performed By: #### Papito AVILA CMP3M #### [address] [address] [address] [place] Potassium [Moles/Vol] 4.7 mmol/L Normal 3.5-5.1 [facility] Comment on above: Performed By: #### Papito AVILA CMP3M #### [address] [address] [address] [place] Sodium [Moles/Vol] 138 mmol/L Normal 135-145 [facility] Comment on above: Performed By: #### Papito AVILA CMP3M #### [address] [address] [address] [place], [place] Basic Metabolic Panel w/ Ref oneil to MGon 02-27-2019 Anion gap [Moles/Vol] 12 mmol/L [place] Calcium [Mass/Vol] 9.6 mg/dL 8.4 - 10. 4 mg/dL [place], [place] Chloride [Moles/Vol] 103 mmol/L 98 - 10 7 mmol/L [place] CO2 [Moles/Vol] 24 mmol/L 22 - 30 mmol/L [place] Creatinine [Mass/Vol] 1.05 mg/dL 0.52 - 1.25 mg/dL [place] EGFR IF NonAfrican [place] 52.0 mL/min >60 [place], [place] Comment on above: Source- MDRD equatio n with creatinine calibration to IDMS(NKDEP) eGFR not recommended for drug dose adjustment GFR/1.73 sq M predicted among blacks MDRD (S/P/Bld) [Vol rate/Area] mL/min/{1.73_m2} >60 mL/min [place] Glucose [Mass/Vol] 233 mg/dL High 70 - 100 mg/dL [place] Interpretation and review of laboratory results Abnormal [place], [place] Potassium [Moles/Vol] 4.7 mmol/L 3.5 - 5.1 mmol/L [place], [place] Sodium [Moles/Vol] 138 mmol/L 135 - 145 mmol/L [place], [place] Urea nitrogen [Mass/Vol] 32 mg/dL High 7 - 20 mg/dL [place] Test Performed by [address] [address] [place], [place] Blood Gas, Arterialon 2018 Base Excess, Arterial -5.8 mmol/L Low -3 - 3 mmol/L [place] HCO3, Arterial 20.8 mmol/L Low 21 - 25 mmol/L [place] Hemoglobin (Bld) [Mass/Vol] 10.4 g/dL ScreenOnly [place], [place] Oxygen saturation in Blood 98.8 % 95 - 100 % [place] pCO2, Arterial 46.0 mm[Hg] High 35 - 45 mm[Hg] [place], [place] pH, Arterial 7.274 Low [place], [place] pO2, Arterial 270.6 mm[Hg] High 80 - 100 mm[Hg] [place], [place] Sodium [Moles/Vol] 100% [place] TCO2, Arterial 22.3 mmol/L Low 23 - 27 mmol/L [place], [place] CBCon 02-27-2019 Erythrocyte distribution width (RBC) [Ratio] 13.0 % 11.5 - 14.5 % [place] Hematocrit (Bld) [Volume fraction] 34.0 % Low 35 - 47 % [place] Hemoglobin (Bld) [Mass/Vol] 11.2 g/dL Low 11.7 - 16 g/dL [place] Interpretation and review of laboratory results Abnormal [place] MCH (RBC) [Entitic mass] 30.3 pg 26 - 34 pg [place] MCHC (RBC) [Mass/Vol] 32.9 % 32 - 36 % [place] MCV (RBC) [Entitic vol] 92.1 fL 79 - 98 fL [place], [place] Platelet mean volume (Bld) [Entitic vol] 9.9 fL 7.4 - 10.4 fL [place] Platelets (Bld) [#/Vol] 143 10*3/uL 140 - 440 10*3/uL [place] RBC (Bld) [#/Vol] 3.69 10*6/uL Low 3.8 - 5.2 10*6/uL [place] WBC (Bld) [#/Vol] 16.7 10*3/uL High 3.6 - 10.7 10*3/uL [place] Test Performed by [facility], [address] [place] [address] [place] Erythrocyte distribution width (RBC) [Ratio] 12.9 % 11.5 - 14.5 % [place] Hematocrit (Bld) [Volume fraction] 29.0 % Low 35 - 47 % [place] Hemoglobin (Bld) [Mass/Vol] 9.8 g/dL Low 11.7 - 16 g/dL [place] Interpretation and review of laboratory results Abnormal [place] MCH (RBC) [Entitic mass] 31.1 pg 26 - 34 pg [place] MCHC (RBC) [Mass/Vol] 33.8 % 32 - 36 % [place] MCV (RBC) [Entitic vol] 91.9 fL 79 - 98 fL [place] Platelet mean volume (Bld) [Entitic vol] 9.7 fL 7.4 - 10.4 fL [place] Platelets (Bld) [#/Vol] 144 10*3/uL 140 - 440 10*3/uL [place] RBC (Bld) [#/Vol] 3.15 10*6/uL Low 3.8 - 5.2 10*6/uL [place] WBC (Bld) [#/Vol] 16.4 10*3/uL High 3.6 - 10.7 10*3/uL [place] Test Performed by [facility], [address] [place] [address] [place], [place] CR Chest Portableon 02-28-20 19 CR Chest Portable Patient Name: CHRISTY FRANCIS Diagnostic Radiology Exam Date/Time 02/27/2019 16:56:34 EST Exam CR Chest Portable Ordering Physician GRANT TAYLOR Accession Number [id number] CPT4 Codes 22743 () Reason For Exam ETT placement Report CHEST PORTABLE: Indication: Inpatient; endotracheal tube placement Views: Portable frontal Comparison: 02/23/2019 Time: 16:42 on 02/27/2019 FINDINGS: Interval intubation with the endotracheal tube at the az, recommend repositioning and retraction. New right upper lung atelectasis/collapse. An enteric tube is in place with distal tip below the hemidiaphragm but excluded from [id number]. Interval placement of a right internal jugular [place]-Ojse catheter with tip overlying the right main [...] Transcribed Date and Time: 02/27/2019 5:56 Normal [facility] CULTURE STAPH AUREUSon 02-27 CULTURE STAPH AUREUS CULTURE STAPH AUREU S --> Status: F No Staphylococcus aureus isolated. Normal [facility] Comment on above: Order Comment: Speci men Source Comment:Nasal Performed By: #### H MEGHNA AVILA3M #### [address] [address] CULTURE, STAPH AUREUSon 02-17 CULTURE, STAPHYLOCOCCUS SCREEN No Staphylococcus aureus isolated. [place], [place] Test Performed by [address] [address] Specimen Source Comment:Nasal [place], [place] Calcium, Ionizedon 9 Ionized Ca 5.50 mg/dL High 4.3 - 5.2 mg/dL [place], [place] pH (Bld) 7.27 [pH] Low [place], [place] Calcium,Ionizedon 02-27-2019 Ionized Ca,Measured 5.50 mg/dL High 4.30-5.20 [facility] Comment on above: Performed By: #### H MEGHNA AVILA3M #### [address] [address] pH, Ionized Calcium 7.27 Low 7.31-7.46 [facility] Comment on above: Performed By: #### H MEGHNA AVILA3M #### [address] [address] Echo 2D/3D DONNELL w/wo Contrast on 02-27-2019 Echo 2D/3D DONNELL w/wo Contrast Patient Name: CHRISTY FRANCIS Ultrasound Exam Date/Time 02/27/2019 13:12:30 EST Exam Echo 2D/3D DONNELL w/wo Contrast Ordering Physician CITLALY CARMONA ELLEN E Accession Number [id number] Reason For Exam Surgery Report TRANSESOPHAGEAL ECHOCARDIOGRAM Intraoperative-Pre Pump Only PATIENT: Christy Francis STUDY DATE: 02/27/2019 : 1950 AGE: 69 HT/WT: 154.9 cm (61 80 kg in) (176 lb) GENDER: F BP: 98 / 57 LOCATION: [facility] PATIENT Inpatient [facility] STATUS: *ORDERING PHYSICIAN: * Ronda Carmona *READING PHYSICIAN: * Michi Dewitt, *COMMERCIAL HOUSEKEEPER: Janice Austin MD [facility] [...] 8:47 am Signed by: MICHI DEWITT Normal [facility] Glucose,Bedsideon 02-27-2019 Glucose [Mass/Vol] 180 mg/dL High 70-100 [facility] Comment on above: Result Comment: Test performed by glucose meter. Results may be 10%-15% lower than serum/plasma values. (CLIA ID [id number]) Performed By: #### B GLU #### [facility] [address] [place] [address] Glucose [Mass/Vol] 181 mg/dL High 70-100 [facility] Comment on above: Result Comment: Test performed by glucose meter. Results may be 10%-15% lower than serum/plasma values. (CLIA ID [id number]) Performed By: #### B GLU #### [facility] [address] [place] [address] Glucose [Mass/Vol] 179 mg/dL High 70-100 [facility] Comment on above: Result Comment: Test performed by glucose meter. Results may be 10%-15% lower than serum/plasma values. (CLIA ID [id number]) Performed By: #### B GLU #### [facility] [address] [place] [address] Glucose [Mass/Vol] 148 mg/dL High [address] [facility] Comment on above: Result Comment: Test performed by glucose meter. Results may be 10%-15% lower than serum/plasma values. (CLIA ID [id number]) Performed By: #### B GLU #### [facility] [address] [place] [address] Glucose [Mass/Vol] 139 mg/dL High 70-100 [facility] Comment on above: Result Comment: Test performed by glucose meter. Results may be 10%-15% lower than serum/plasma values. (CLIA ID [id number]) Performed By: #### B GLU #### [facility] [address] [place] [address] Glucose [Mass/Vol] 233 mg/dL High 70-100 [facility] Comment on above: Result Comment: Test performed by glucose meter. Results may be 10%-15% lower than serum/plasma values. (CLIA ID [id number]) Performed By: #### H MEGHNA AVILA3M #### [facility] [address] [place] Glucose [Mass/Vol] 299 mg/dL High 70-100 [facility] Comment on above: Result Comment: Test performed by glucose meter. Results may be 10%-15% lower than serum/plasma values. (CLIA ID [id number]) Performed By: #### H MEGHNA AVILA3M #### [address] [address] [address] [place] Hemogramon 02-27-2019 Erythrocyte distribution width (RBC) [Ratio] 13.0 % Normal 11.5-14.5 [facility] Comment on above: Performed By: #### B GLU #### [address] [address] [address] [place] Hematocrit (Bld) [Volume fraction] 34.0 % Low 35.0-47.0 [facility] Comment on above: Performed By: #### B GLU #### [address] [address] [address] [place] Hemoglobin (Bld) [Mass/Vol] 11.2 g/dL Low 11.7-16.0 [facility] Comment on above: Performed By: #### B GLU #### [address] [address] [address] [place] MCH (RBC) [Entitic mass] 30.3 pg Normal 26.0-34.0 [facility] Comment on above: Performed By: #### B GLU #### [address] [address] [address] [place] MCHC (RBC) [Mass/Vol] 32.9 % Normal 32.0-36.0 [facility] Comment on above: Performed By: #### B GLU #### [address] [address] [address] [place] MCV (RBC) [Entitic vol] 92.1 fL Normal 79.0-98.0 [facility] Comment on above: Performed By: #### B GLU #### [address] [place], [place] Platelet mean volume (Bld) [Entitic vol] 9.9 fL Normal 7.4-10.4 [facility] Comment on above: Performed By: #### B GLU #### [address] [place] Platelets (Bld) [#/Vol] 143 10*3/uL Normal 140-440 [facility] Comment on above: Performed By: #### B GLU #### [address] [place] RBC (Bld) [#/Vol] 3.69 10*6/uL Low 3.80-5.20 [facility] Comment on above: Performed By: #### B GLU #### [address] [place] WBC (Bld) [#/Vol] 16.7 10*3/uL High 3.6-10.7 [facility] Comment on above: Performed By: #### B GLU #### [address] [place] Erythrocyte distribution width (RBC) [Ratio] 12.9 % Normal 11.5-14.5 [facility] Comment on above: Performed By: #### H AUSTIN CMP3M #### [address] [place] Hematocrit (Bld) [Volume fraction] 29.0 % Low 35.0-47.0 [facility] Comment on above: Performed By: #### H AUSTIN CMP3M #### [address] [place] Hemoglobin (Bld) [Mass/Vol] 9.8 g/dL Low 11.7-16.0 [facility] Comment on above: Performed By: #### H AUSTIN CMP3M #### [address] [place] MCH (RBC) [Entitic mass] 31.1 pg Normal 26.0-34.0 [facility] Comment on above: Performed By: #### Papito AVILA CMP3M #### [address] [place] MCHC (RBC) [Mass/Vol] 33.8 % Normal 32.0-36.0 [facility] Comment on above: Performed By: #### Papito AVILA CMP3M #### [address] [place] MCV (RBC) [Entitic vol] 91.9 fL Normal 79.0-98.0 [facility] Comment on above: Performed By: #### Papito AVILA CMP3M #### [address] [place] Platelet mean volume (Bld) [Entitic vol] 9.7 fL Normal 7.4-10.4 [facility] Comment on above: Performed By: #### Papito AVILA CMP3M #### [address] [place] Platelets (Bld) [#/Vol] 144 10*3/uL Normal 140-440 [facility] Comment on above: Performed By: #### Papito AVILA CMP3M #### [address] [place] RBC (Bld) [#/Vol] 3.15 10*6/uL Low 3.80-5.20 [facility] Comment on above: Performed By: #### Papito AVIAL CMP3M #### [address] [place] WBC (Bld) [#/Vol] 16.4 10*3/uL High 3.6-10.7 [facility] Comment on above: Performed By: #### Papito AVILA CMP3M #### [address] [place] Magnesiumon 02-27-2019 Magnesium [Mass/Vol] 2.4 mg/dL High 1.6-2.3 [facility] Comment on above: Performed By: #### B GLU #### [facility] [address] [place] [address] Magnesium [Mass/Vol] 2.4 mg/dL High 1.6 - 2 .3 mg/dL [facility] [place] Magnesium [Mass/Vol] 3.2 mg/dL High 1.6-2.3 [facility] Comment on above: Performed By: #### B GLU #### [facility] [address] [place] [address] Magnesium [Mass/Vol] 3.2 mg/dL High 1.6 - 2 .3 mg/dL [facility] Otheron 02-27-2019 Interpretation and review of laboratory results Abnormal [facility] [place] Test Performed by [facility], [facility] [place] [address] [facility] Interpretation and review of laboratory results Abnormal [facility] [place] Test Performed by [facility], [facility] [place] [address] [facility] Interpretation and review of laboratory results Abnormal [facility] [place] Test Performed by [facility], [facility] [place] [address] [facility] POCT Glucoseon 02-27-2019 Glucose [Mass/Vol] 152 mg/dL High 70 - 100 mg/dL [facility] Comment on above: Test performed by gl ucose meter. Results may be 10%-15% lower than serum/plasma values. (CLIA ID [id number]) Interpretation and review of laboratory results Abnormal [facility] [place] Test Performed by [facility], [address] [place] [address] [facility] Glucose [Mass/Vol] 156 mg/dL High 70 - 100 mg/dL [facility] Comment on above: Test performed by gl ucose meter. Results may be 10%-15% lower than serum/plasma values. (CLIA ID [id number]) Interpretation and review of laboratory results Abnormal [facility] Test Performed by [facility], [address] [place] [place] [address] [facility] [place] Glucose [Mass/Vol] 180 mg/dL High 70 - 100 mg/dL [facility] [place] Comment on above: Test performed by gl ucose meter. Results may be 10%-15% lower than serum/plasma values. (CLIA ID [id number]) Interpretation and review of laboratory results Abnormal [facility] [place] Test Performed by [facility], [address] [place] [address] [facility] [place] Glucose [Mass/Vol] 181 mg/dL High 70 - 100 mg/dL [facility] [place] Comment on above: Test performed by gl ucose meter. Results may be 10%-15% lower than serum/plasma values. (CLIA ID [id number]) Interpretation and review of laboratory results Abnormal [facility] Test Performed by [facility], [address], [place] [address] [facility] Glucose [Mass/Vol] 179 mg/dL High 70 - 100 mg/dL [facility] [place] Comment on above: Test performed by gl ucose meter. Results may be 10%-15% lower than serum/plasma values. (CLIA ID [id number]) Interpretation and review of laboratory results Abnormal [facility] [place] Test Performed by [facility], [address] [place] [place] [address] [facility] [place] Glucose [Mass/Vol] 148 mg/dL High 70 - 100 mg/dL [facility] [place] Comment on above: Test performed by gl ucose meter. Results may be 10%-15% lower than serum/plasma values. (CLIA ID [id number]) Interpretation and review of laboratory results Abnormal [facility] Test Performed by [employer] [facility], [address] [place] [address] [facility] [place] Glucose [Mass/Vol] 139 mg/dL High 70 - 100 mg/dL [facility] [place] Comment on above: Test performed by gl ucose meter. Results may be 10%-15% lower than serum/plasma values. (CLIA ID [id number]) Interpretation and review of laboratory results Abnormal [facility] Test Performed by [facility], [address] [place] [id number] [place] [address] Glucose [Mass/Vol] 233 mg/dL High 70 - 100 mg/dL [place], [place] Comment on above: Test performed by gl ucose meter. Results may be 10%-15% lower than serum/plasma values. (CLIA ID [id number]) Interpretation and review of laboratory results Abnormal [place], [place] Test Performed by [facility], [facility] [place], [place] [id number] [place] [address] Glucose [Mass/Vol] 299 mg/dL High 70 - 100 mg/dL [place] Comment on above: Test performed by gl ucose meter. Results may be 10%-15% lower than serum/plasma values. (CLIA ID [id number]) Interpretation and review of laboratory results Abnormal [place], [place] Test Performed by [facility], [address] [place] [address] Phosphoruson 02-27-2019 Phosphate [Mass/Vol] 3.3 mg/dL Normal 2.5-4.5 [facility] Comment on above: Performed By: #### B GLU #### [address] Phosphate [Mass/Vol] 3.3 mg/dL 2.5 - 4 .5 mg/dL [place], [place] Protime AND APTTon 9 INR Coag (PPP) [Relative time] 1.3 High 0.9-1.1 [facility] Comment on above: Result Comment: Gael [...] Performed By: #### H AUSTIN, CMP3M #### [address] [address] [place], [place] PT Coag (PPP) [Time] 13.5 s High 9.0-12.0 [facility] Comment on above: Result Comment: . Performed By: #### H MEGHNA AVILA3M #### [facility] [address] [place], [place] aPTT Coag (Bld) [Time] 21.2 s Normal 20.0-30.5 [facility] Comment on above: Result Comment: NOTE : The therapeutic time for Heparin anticoagulation, based on Xa activity inhibition, is an APTT of 46-80 seconds. Performed By: #### H MEGHNA AVILA3M #### [facility] [address] [place], [place] Protime/INR & PTTon 02-28-20 aPTT Coag (Bld) [Time] 21.2 s 20 - 30.5 s [place], [place] Comment on above: NOTE: The therapeuti c time for Heparin anticoagulation, based on Xa activity inhibition, is an APTT of 46-80 seconds. INR Coag (PPP) [Relative time] 1.3 {INR} High [place], [place] Comment on above: Recommended Anticoag ulant [...] Interpretation and review of laboratory results Abnormal [place], [place] PT Coag (PPP) [Time] 13.5 s High 9 - 12 s [place], [place] Comment on above: . Test Performed by [facility], [facility] [place], [place] XR CHEST PORTABLEon 02-28-20 Patient Name: CHRISTY FRANCIS ---Diagnostic Radiology--- Exam Date/Time 02/27/2019 16:56:34 EST Exam CR Chest Portable Ordering Physician GRANT TAYLOR Accession Number [id number] CPT4 Codes 32139 () Reason For Exam ETT placement Report CHEST PORTABLE: Indication: Inpatient; endotracheal tube placement Views: Portable frontal Comparison: 02/23/2019 Time: 16:42 on 02/27/2019 FINDINGS: Interval intubation with the endotracheal tube at the az, recommend repositioning and retraction. New right upper lung atelectasis/collapse. An enteric tube is in place with distal tip below the hemidiaphragm but excluded from [id number]. Interval placement of a right internal jugular [place]-Jose catheter with tip overlying the right main [...] R Transcribed Date and Time: 02/27/2019 5:56 [place], [place] Brian, [facility] Incoming Radiology Results From [facility] - 02/27/2019 6:03 PM EST Patient Name: CHRISTY FRANCIS ---Diagnostic Radiology--- Exam Date/Time 02/27/2019 16:56:34 EST Exam CR Chest Portable Ordering Physician GRANT TAYLOR Accession Number [id number] CPT4 Codes 47201 () Reason For Exam ETT placement Report CHEST PORTABLE: Indication: Inpatient; endotracheal tube placement Views: Portable frontal Comparison: 02/23/2019 Time: 16:42 on 02/27/2019 FINDINGS: Interval intubation with the endotracheal tube at the az, recommend repositioning and retraction. New right upper lung atelectasis/collapse. An enteric tube is in place with distal tip below the hemidiaphragm but excluded from [id number]. Interval placement of a right internal jugular [place]-Jose catheter with tip overlying the right main [...] R Transcribed Date and Time: 02/27/2019 5:56 [facility], [place] Basic Metabolic Panelon 11-1 Calcium [Mass/Vol] 9.2 mg/dL Normal 8.4-10.4 [facility] Comment on above: Performed By: #### H MEGHNA AVILA3M #### [facility] [address] [place], [place] Glucose [Mass/Vol] 317 mg/dL High 70-100 [facility] Comment on above: Performed By: #### H MEGHNA AVILA3M #### [facility] [address] [place], [place] Anion gap [Moles/Vol] 10 Normal [facility] Comment on above: Performed By: #### H MEGHNA AVILA3M #### [facility] [address] [place] CO2 [Moles/Vol] 21 mmol/L Low 22-30 [facility] Comment on above: Performed By: #### H MEGHNA AVILA3M #### [facility] [address] [place] Creatinine [Mass/Vol] 1.14 mg/dL Normal 0.52-1.25 [facility] Comment on above: Performed By: #### Papito AVILA CMP3M #### [address] [address] [place] GFR/1.73 sq M predicted among blacks MDRD (S/P/Bld) [Vol rate/Area] 57.3 mL/min/{1.73_m2} Normal >60 [facility] Comment on above: Performed By: #### Papito AVILA CMP3M #### [address] [place] GFR/1.73 sq M predicted among non-blacks MDRD (S/P/Bld) [Vol rate/Area] 47.2 mL/min/{1.73_m2} Normal >60 [facility] Comment on above: Result Comment: Sour ce- MDRD equation with creatinine calibration to IDMS(NKDEP) eGFR not recommended for drug dose adjustment Performed By: #### Papito AVILA CMP3M #### [address] [address] [place] Urea nitrogen [Mass/Vol] 30 mg/dL High 7-20 [facility] Comment on above: Performed By: #### Papito AVILA CMP3M #### [address] [address] [place] Chloride [Moles/Vol] 105 mmol/L Normal 98-107 [facility] Comment on above: Performed By: #### Papito AVILA CMP3M #### [address] [place] Potassium [Moles/Vol] 5.1 mmol/L Normal 3.5-5.1 [facility] Comment on above: Performed By: #### Papito AVILA CMP3M #### [address] Sodium [Moles/Vol] 136 mmol/L Normal 135-145 [facility] Comment on above: Performed By: #### Papito AVILA CMP3M #### [address] [place] Basic Metabolic Panel w/ Ref oneil to MGon 11-10-2019 Anion gap [Moles/Vol] 10 mmol/L [place], [place] Calcium [Mass/Vol] 9.2 mg/dL 8.4 - 10. 4 mg/dL [place], [place] Chloride [Moles/Vol] 105 mmol/L 98 - 10 7 mmol/L [place] CO2 [Moles/Vol] 21 mmol/L Low 22 - 30 mmol/L [place] Creatinine [Mass/Vol] 1.14 mg/dL 0.52 - 1.25 mg/dL [place], [place] EGFR IF NonAfrican [place] 47.2 mL/min >60 [place], [place] Comment on above: Source- MDRD equatio n with creatinine calibration to IDMS(NKDEP) eGFR not recommended for drug dose adjustment GFR/1.73 sq M predicted among blacks MDRD (S/P/Bld) [Vol rate/Area] 57.3 mL/min/{1.73_m2} >60 [place], [place] Glucose [Mass/Vol] 317 mg/dL High 70 - 100 mg/dL [place], [place] Interpretation and review of laboratory results Abnormal [place], [place] Potassium [Moles/Vol] 5.1 mmol/L 3.5 - 5.1 mmol/L [place], [place] Sodium [Moles/Vol] 136 mmol/L 135 - 145 mmol/L [place], [place] Urea nitrogen [Mass/Vol] 30 mg/dL High 7 - 20 mg/dL [place] Test Performed by [address] [address] [place], [place] CBCon 02-26-2019 Erythrocyte distribution width (RBC) [Ratio] 13.1 % 11.5 - 14.5 % [place] Hematocrit (Bld) [Volume fraction] 44.0 % 35 - 47 % [place], [place] Hemoglobin (Bld) [Mass/Vol] 14.9 g/dL 11.7 - 16 g/dL [place], [place] MCH (RBC) [Entitic mass] 30.6 pg 26 - 34 pg [place], [place] MCHC (RBC) [Mass/Vol] 33.9 % 32 - 36 % [place], [place] MCV (RBC) [Entitic vol] 90.3 fL 79 - 98 fL [place], [place] Platelet mean volume (Bld) [Entitic vol] 9.9 fL 7.4 - 10.4 fL [place], [place] Platelets (Bld) [#/Vol] 205 10*3/uL 140 - 440 10*3/uL [place], [place] RBC (Bld) [#/Vol] 4.88 10*6/uL 3.8 - 5.2 10*6/uL [place] WBC (Bld) [#/Vol] 8.3 10*3/uL 3.6 - 10.7 10*3/uL [place] Test Performed by [facility], [address] [place] [id number] [place] [address] Complete Urinalysison 2018 Appearance (U) Clear Normal Clear [facility] Comment on above: Performed By: #### Papito AVILA CMP3M #### [address] Bacteria LM.HPF (Urine sed) [#/Area] Negative Normal Negative [facility] Comment on above: Performed By: #### Papito AVILA CMP3M #### [address] Bilirubin,Urine Negative Normal Negative [facility] Comment on above: Performed By: #### Papito AVILA CMP3M #### [address] Cast, Hyaline Negative Normal Negative [facility] Comment on above: Performed By: #### Papito AVILA CMP3M #### [address] Color (U) Light-Yellow Normal Lt. Yellow [facility] Comment on above: Performed By: #### Papito AVILA CMP3M #### [address] Glucose Ql (U) 300 mg/dL Normal Normal (<70) [facility] Comment on above: Performed By: #### H AUSTIN CMP3M #### [facility] [address] Ketone,Urine Negative Normal Negative [facility] Comment on above: Performed By: #### H AUSTIN CMP3M #### [facility] [address] [place] Leukocytes,Urine 25 Michael/uL Normal Negative [facility] Comment on above: Performed By: #### H AUSTIN CMP3M #### [address] [place] Mucous Threads Few Normal Negative [facility] Comment on above: Performed By: #### H AUSTIN CMP3M #### [address] [place] Nitrites,Urine Negative Normal Negative [facility] Comment on above: Performed By: #### Papito AVILA CMP3M #### [address] [place] Occult Blood,Urine 0.03 mg/dL Normal Negative [facility] Comment on above: Performed By: #### H AUSTIN CMP3M #### [address] [place] pH (U) 5.0 Normal 5.0-8.0 [facility] Comment on above: Performed By: #### H AUSTIN CMP3M #### [address] [place] Protein (U) [Mass/Vol] Negative Normal Negative [facility] Comment on above: Performed By: #### H AUSTIN CMP3M #### [address] [place] RBC LM.HPF (Urine sed) [#/Area] 0 - 2 Normal 0-2 [facility] Comment on above: Performed By: #### H AUSTIN CMP3M #### [address] [place] Specific [place],Urine 1.015 Normal 1.005-1.030 [facility] Comment on above: Performed By: #### H EMOG, CMP3M #### [facility] [address] [place] [address] Squamous Epithelial 0 - 2 Normal 3-5 [facility] Comment on above: Performed By: #### H EMOG, CMP3M #### [facility] [address] [place] [address] Urobilinogen,Urine Normal Normal Normal (0-1) [facility] Comment on above: Performed By: #### H EMOG, CMP3M #### [facility] [address] [place] [address] WBC LM.HPF (Urine sed) [#/Area] 0 - 2 Normal 0-5 [facility] Comment on above: Performed By: #### H EMOG, CMP3M #### [facility] [address] 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1950 Requested By: Order Number: [id number] Reading MD: Keith Ngo Measurements Intervals Sodus Rate: 78 P: 52 TN: 150 QRS: -10 QRSD: 86 T: 122 QT: 386 QTc: 440 Interpretive Statements Sinus rhythm LAE, consider biatrial enlargement LVH with secondary repolarization abnormality Electronically Signed On 02-26-2019 9:22:41 EST by Keith Ngo [facility], [facility] Test Date: 2019-02-25 Pat Name: Christy Francis Department: 1A5 Room: [facility] 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 Results may be 10%-15% lower than serum/plasma values. (CLIA ID [id number]) Performed By: #### H EMOG CMP3M #### [facility] [address] [place] [address] Glucose [Mass/Vol] 270 mg/dL High 70-100 [facility] Comment on above: Result Comment: Test performed by glucose meter. Results may be 10%-15% lower than serum/plasma values. (CLIA ID [id number]) Performed By: #### H EMOG CMP3M #### [facility] [address] [place] [address] Glucose [Mass/Vol] 245 mg/dL High 70-100 [facility] Comment on above: Result Comment: Test performed by glucose meter. Results may be 10%-15% lower than serum/plasma values. (CLIA ID [id number]) Performed By: #### H EMOG CMP3M #### [facility] [address] [place] [address] Glucose [Mass/Vol] 316 mg/dL High 70-100 [facility] Comment on above: Result Comment: Test performed by glucose meter. Results may be 10%-15% lower than serum/plasma values. (CLIA ID [id number]) Performed By: #### H EMOG CMP3M #### [facility] [address] [place] [address] Hemogramon 02-26-2019 Erythrocyte distribution width (RBC) [Ratio] 13.1 % Normal 11.5-14.5 [facility] Comment on above: Performed By: #### B GLU #### [employer] [facility] [address] [place] [address] Hematocrit (Bld) [Volume fraction] 44.0 % Normal 35.0-47.0 [facility] Comment on above: Performed By: #### B GLU #### [facility] [address] [place] Hemoglobin (Bld) [Mass/Vol] 14.9 g/dL Normal 11.7-16.0 [facility] Comment on above: Performed By: #### B GLU #### [facility] [address] [place] MCH (RBC) [Entitic mass] 30.6 pg Normal 26.0-34.0 [facility] Comment on above: Performed By: #### B GLU #### [facility] [address] [place] MCHC (RBC) [Mass/Vol] 33.9 % Normal 32.0-36.0 [facility] Comment on above: Performed By: #### B GLU #### [address] [address] [place] MCV (RBC) [Entitic vol] 90.3 fL Normal 79.0-98.0 [facility] Comment on above: Performed By: #### B GLU #### [facility] [address] [place] Platelet mean volume (Bld) [Entitic vol] 9.9 fL Normal 7.4-10.4 [facility] Comment on above: Performed By: #### B GLU #### [facility] [address] [place] Platelets (Bld) [#/Vol] 205 10*3/uL Normal 140-440 [facility] Comment on above: Performed By: #### B GLU #### [address] [place] RBC (Bld) [#/Vol] 4.88 10*6/uL Normal 3.80-5.20 [facility] Comment on above: Performed By: #### B GLU #### [address] [place] WBC (Bld) [#/Vol] 8.3 10*3/uL Normal 3.6-10.7 [facility] Comment on above: Performed By: #### B GLU #### [facility] [address] [place] [address] POCT Glucoseon 02-26-2019 Glucose [Mass/Vol] 257 mg/dL High 70 - 100 mg/dL [facility] [place] Comment on above: Test performed by gl ucose meter. Results may be 10%-15% lower than serum/plasma values. (CLIA ID [id number]) Interpretation and review of laboratory results Abnormal [facility] Test Performed by [facility], [address] [place] [address] [facility] [place] Glucose [Mass/Vol] 270 mg/dL High 70 - 100 mg/dL [facility] [place] Comment on above: Test performed by gl ucose meter. Results may be 10%-15% lower than serum/plasma values. (CLIA ID [id number]) Interpretation and review of laboratory results Abnormal [facility] [place] Test Performed by [employer] [facility], [address] [place] [address] [facility] [place] Glucose [Mass/Vol] 245 mg/dL High 70 - 100 mg/dL [facility] [place] Comment on above: Test performed by gl ucose meter. Results may be 10%-15% lower than serum/plasma values. (CLIA ID [id number]) Interpretation and review of laboratory results Abnormal [facility] [place] Test Performed by [employer] [facility], [address] [place] [address] [facility] [place] Glucose [Mass/Vol] 316 mg/dL High 70 - 100 mg/dL [facility]- [place], [place] Comment on above: Test performed by gl ucose meter. Results may be 10%-15% lower than serum/plasma values. (CLIA ID [id number]) Interpretation and review of laboratory results Abnormal [facility]- [place] Test Performed by [employer] [facility], [address] [place] [address] [facility]- [place] Prothrombin Timeon 9 INR Coag (PPP) [Relative time] 1.0 Normal 0.9-1.1 [facility] Comment on above: Result Comment: Gael [...] Performed By: #### Papito AVILA CMP3M #### [facility] [address] [place] [address] PT Coag (PPP) [Time] 10.9 s Normal 9.0-12.0 [facility] Comment on above: Result Comment: . Performed By: #### Papito AVILA CMP3M #### [address] [place] [address] Protime-INRon 02-26-2019 INR Coag (PPP) [Relative time] 1.0 {INR} [place], [place] Comment on above: Recommended Anticoag ulant [...] [Time] 10.9 s 9 - 12 s [place], [place] Comment on above: . Test Performed by [facility], [address] [place] [address] [place], [place] TS GELon 02-26-2019 TS GEL ABO Group: A Rh, Gel: POS Antibody Screen Gel: NEG Normal [facility] Comment on above: Performed By: #### H MEGHNA AVILA3M #### [facility] [address] [place] [address] TYPE AND SCREENon 02-26-2019 Sodium [Moles/Vol] Positive [place], [place] Comment on above: Test Performed by [facility], [address] [place] [address] Sodium [Moles/Vol] A [place], [place] Sodium [Moles/Vol] Negative [place] Comment on above: Test Performed by [facility], [address] [place] [address] Test Performed by [facility], [address] [place] [address] [place], [place] Urinalysison 02-26-2019 Appearance (U) Clear Clear NA [place] Bacteria, UA Negative Negative /[HPF] [place] Bilirubin Urine Negative Negative mg/dL [place] Color (U) Light-Yellow Lt. Yellow NA [place], [place] Glucose, Ur 300 mg/dL Normal (<70) [place] Hyaline Casts, UA Negative Negative /[LPF] [place], [place] Ketones Ql (U) Negative Negative mg/dL [place] LEUKOCYTES, UA 25 Negative Michael/uL [place] Mucous Threads Few Negative /[LPF] [place] Nitrite, Urine Negative Negative NA [place] Occult Blood,Urine 0.03 mg/dL Negative [place] pH (U) 5.0 [pH] [place] Protein (U) [Mass/Vol] Negative Negat johnny mg/dL [place] RBC (U) [#/Vol] 0-2 0 - 2 /[HPF] [place] Specific [place], Urine 1.015 [place], [place] Squam Epithel, UA 0-2 3 - 5 /[HPF] [place] Urobilinogen, Urine Normal Normal ( 0-1) mg/dL [place] WBC, UA 0-2 0 - 5 /[HPF] [place] Test Performed by [facility], [address] [place] [address] [place] VL ARTERIAL PVR LOWER WO EXE RCISEon 02-26-2019 [facility] Multilevel Lower Extremity Arterial Evaluation Report Ordering Physician: Timmy Basilio MD Color Worker: Yamilet Cortes RVT Interpreting Physician: Charlie Solano MD Location: [facility] Indications: PVD. Conclusions 1. Left resting [...] supine position. Images were obtained using a [employer] [facility] 2100 vascular ultrasound machine. Arterial pressure [...] signed by Charlie Solano MD 02/26/2019 09:13 [facility] Incoming Cardiology Results From [employer] - 02/26/2019 9:13 AM EST [facility] Multilevel Lower Extremity Arterial Evaluation Report Ordering Physician: Timmy Basilio MD Color Worker: Yamilet Cortes RVT Interpreting Physician: Charlie Solano MD Location: [facility] Indications: PVD. Conclusions 1. Left resting [...] supine position. Images were obtained using a [employer] [facility] 2100 vascular ultrasound machine. Arterial pressure [...] signed by Charlie Solano MD 02/26/2019 09:13 [facility] [place] [place] VL DUP CAROTID BILATERALon 1 04-28-2018 [facility] Incoming Cardiology Results From Vera/Brooke - 02/26/2019 9:08 AM EST [facility] Carotid Duplex Report Ordering Physician: Minoo Encinas Color Worker: Yamilet Cortes RVT Interpreting Physician: Charlie Solano MD Location: [facility] Indications: Carotid stenosis. Conclusions 1. Mild [...] Charlie Solano MD 02/26/2019 09:08 [facility] [place] [facility] Carotid Duplex Report Ordering Physician: Minoo Encinas Color Worker: Yamilet Cortes RVT Interpreting Physician: Charlie Solano MD Location: [facility] Indications: Carotid stenosis. Conclusions 1. Mild [...] Charlie Solano MD 02/26/2019 09:08 [facility]- [place] VL Pre Op Vein Mappingon [facility] Bilateral LE Vein Mapping For Bypass Report Ordering Physician: Minoo Encinas Color Worker: Yamilet Cortes RVT Interpreting Physician: Charlie Solano MD Location: [facility] Indications: Pre-op bypass. Conclusions 1. The right great saphenous vein and left great saphenous veinappears patent. 2. Vein sizes as noted below. Study data: Bilateral lower extremity vein mapping. [employer] 2D imaging. Location: Vascular laboratory. Procedure: A vascular evaluation was performed with the patient in the supine position. Images were obtained using a [employer] E9 vascular ultrasound machine. Vein mapping: + [...] signed by Charlie Solano MD 02/26/2019 09:10 [facility] Incoming Cardiology Results From [employer] - 02/26/2019 9:10 AM EST [facility] Bilateral LE Vein Mapping For Bypass Report Ordering Physician: Minoo Encinas Color Worker: Yamilet Cortes RVT Interpreting Physician: Charlie Solano MD Location: [facility] Indications: Pre-op bypass. Conclusions 1. The right great saphenous vein and left great saphenous veinappears patent. 2. Vein sizes as noted below. Study data: Bilateral lower extremity vein mapping. Grayscale 2D imaging. Location: Vascular laboratory. Procedure: A vascular evaluation was performed with the patient in the supine position. Images were obtained using a POI E9 vascular ultrasound machine. Vein mapping: + [...] Charlie Solano MD 02/26/2019 09:10 [facility]- [place], [place] Complete Urinalysison 2018 Appearance (U) Clear Normal Clear [facility] Comment on above: Performed By: #### B GLU #### [facility] [address], [place] Bacteria LM.HPF (Urine sed) [#/Area] Few Normal Negative [facility] Comment on above: Performed By: #### B GLU #### [address] [address] [place], [place] Bilirubin,Urine Negative Normal Negative [facility] Comment on above: Performed By: #### B GLU #### [address] [address] [place], [place] Color (U) Colorless Normal Lt. Yellow [facility] Comment on above: Performed By: #### B GLU #### [address] [address] [place], [place] Glucose Ql (U) 300 mg/dL Normal Normal (<70) [facility] Comment on above: Performed By: #### B GLU #### [facility] [address] [place], [place] Ketone,Urine Negative Normal Negative [facility] Comment on above: Performed By: #### B GLU #### [facility] [address], [place] Leukocytes,Urine 75 Michael/uL Normal Negative [facility] Comment on above: Performed By: #### B GLU #### [address] [address] [place], [place] Nitrites,Urine Negative Normal Negative [facility] Comment on above: Performed By: #### B GLU #### [address] [address] [place], [place] Occult Blood,Urine Negative Normal Negative [facility] Comment on above: Performed By: #### B GLU #### [facility] [address] [place], [place] pH (U) 5.0 Normal 5.0-8.0 [facility] Comment on above: Performed By: #### B GLU #### [facility] [address], [place] Protein (U) [Mass/Vol] Negative Normal Negative [facility] Comment on above: Performed By: #### B GLU #### [facility] [address], [place] Specific [place],Urine 1.009 Normal 1.005-1.030 [facility] Comment on above: Performed By: #### B GLU #### [facility] [address] [place], [place] Squamous Epithelial 0 - 2 Normal 3-5 [facility] Comment on above: Performed By: #### B GLU #### [facility] [address] [place], [place] Urobilinogen,Urine Normal Normal Normal (0-1) [facility] Comment on above: Performed By: #### B GLU #### [facility] [address] [place], [place] WBC LM.HPF (Urine sed) [#/Area] 6 - 10 Normal 0-5 [facility] Comment on above: Performed By: #### B GLU #### [facility] [address], [place] Glucose,Bedsideon 02-25-2019 Glucose [Mass/Vol] 280 mg/dL High 70-100 [facility] Comment on above: Result Comment: Test performed by glucose meter. Results may be 10%-15% lower than serum/plasma values. (CLIA ID [id number]) Performed By: #### B GLU #### [facility] [address], [place] Glucose [Mass/Vol] 266 mg/dL High 70-100 [facility] Comment on above: Result Comment: Test performed by glucose meter. Results may be 10%-15% lower than serum/plasma values. (CLIA ID [id number]) Performed By: #### B GLU #### [facility] [address] [place] [address] Glucose [Mass/Vol] 219 mg/dL High 70-100 [facility] Comment on above: Result Comment: Test performed by glucose meter. Results may be 10%-15% lower than serum/plasma values. (CLIA ID [id number]) Performed By: #### B GLU #### [facility] [address] [place] [address] Glucose [Mass/Vol] 338 mg/dL High 70-100 [facility] Comment on above: Result Comment: Test performed by glucose meter. Results may be 10%-15% lower than serum/plasma values. (CLIA ID [id number]) Performed By: #### B GLU #### [address] [place] [address] Glucose [Mass/Vol] 272 mg/dL High 70-100 [facility] Comment on above: Result Comment: Test performed by glucose meter. Results may be 10%-15% lower than serum/plasma values. (CLIA ID [id number]) Performed By: #### B GLU #### [facility] [address] [place] [address] Hemoglobin A1Con 02-25-2019 HbA1c (Bld) [Mass fraction] 249 mg/dL Normal [facility] Comment on above: Performed By: #### B GLU #### [facility] [address] [place] [address] HbA1c (Bld) [Mass fraction] 10.3 % High 4.0-5.7 [facility] Comment on above: Result Comment: --Hg bA1C levels may not be accurate in patients who have renal disease, received recent blood transfusions, are anemic, or who have dyshemoglobinemia. Performed By: #### B GLU #### [facility] [address] [place] [address] Hemoglobin A1con 02-25-2019 eAG 249 mg/dL [facility], [place] HbA1c (Bld) [Mass fraction] 10.3 % High 4 - 5.7 % [facility] [place] Comment on above: --HgbA1C levels may not be accurate in patients who have renal disease, received recent blood transfusions, are anemic, or who have dyshemoglobinemia. Interpretation and review of laboratory results Abnormal [facility]- [place] Test Performed by [facility], [address] [place] [address] [facility]- [place] POCT Glucoseon 02-25-2019 Glucose [Mass/Vol] 280 mg/dL High 70 - 100 mg/dL [facility] [place] Comment on above: Test performed by gl ucose meter. Results may be 10%-15% lower than serum/plasma values. (CLIA ID [id number]) Interpretation and review of laboratory results Abnormal [facility] Test Performed by [facility], [address] [place] [address] [facility] [place] Glucose [Mass/Vol] 266 mg/dL High 70 - 100 mg/dL [facility] [place] Comment on above: Test performed by gl ucose meter. Results may be 10%-15% lower than serum/plasma values. (CLIA ID [id number]) Interpretation and review of laboratory results Abnormal [facility] [place] Test Performed by [facility], [address] [place] [address] [facility] Glucose [Mass/Vol] 219 mg/dL High 70 - 100 mg/dL [facility] Comment on above: Test performed by gl ucose meter. Results may be 10%-15% lower than serum/plasma values. (CLIA ID [id number]) Interpretation and review of laboratory results Abnormal [facility] [place] Test Performed by [facility], [address] [place] [address] [facility] [place] Glucose [Mass/Vol] 338 mg/dL High 70 - 100 mg/dL [facility] [place] Comment on above: Test performed by gl ucose meter. Results may be 10%-15% lower than serum/plasma values. (CLIA ID [id number]) Interpretation and review of laboratory results Abnormal [facility] [place] Test Performed by [facility], [address] [place] [address] [place], [place] Urinalysison 02-25-2019 Appearance (U) Clear Clear NA [place], [place] Bacteria, UA Few Negative /[HPF] [place], [place] Bilirubin Urine Negative Negative mg/dL [place], [place] Color (U) Colorless Lt. Yellow NA [place], [place] Glucose, Ur 300 mg/dL Normal (<70) [place], [place] Ketones Ql (U) Negative Negative mg/dL [facility], [place] LEUKOCYTES, UA 75 Negative Michael/uL [place] Nitrite, Urine Negative Negative NA [place], [place] Occult Blood,Urine Negative Negative mg/dL [place] pH (U) 5.0 [pH] [place] Protein (U) [Mass/Vol] Negative Negat johnny mg/dL [place] Specific [place], Urine 1.009 [place] Squam Epithel, UA 0-2 3 - 5 /[HPF] [place] Urobilinogen, Urine Normal Normal ( 0-1) mg/dL [place] WBC, UA 6-10 0 - 5 /[HPF] [place] Test Performed by [facility], [address] [place] [address] [place] VL Carotid Duplex Ultrasound Completeon 02-25-2019 VL Carotid Duplex Ultrasound Complete Patient Name: CHRISTY FRANCIS Ultrasound Exam Date/Time 02/25/2019 13:56:07 EST Exam VL Carotid Duplex Ultrasound Complete Ordering Physician RICHY ENCINAS, MINOO Rivera Accession Number [id number] CPT4 Codes 58916 () Reason For Exam preop CABG Report [facility] Carotid Duplex Report Ordering Physician: Minoo Encinas Color Worker: Yamilet Cortes RVT Interpreting Physician: Charlie Solano MD Location: [facility] Indications: Carotid stenosis. Conclusions 1. Mild [...] 02/26/2019 9:08 am Signed by: CHARLIE SOLANO [facility] VL PVR Arterial Doppler Lwr w/o Exerciseon 02-25-2019 VL PVR Arterial Doppler Lwr w/o Exercise Patient Name: CHRISTY FRANCIS Ultrasound Exam Date/Time 02/25/2019 13:56:47 EST Exam VL PVR Arterial Doppler Lwr w/o Exercise Ordering Physician MD CIRILO, TIMMY Accession Number [id number] CPT4 Codes 86232 () Reason For Exam PVD preop CABG Report [facility] Multilevel Lower Extremity Arterial Evaluation Report Ordering Physician: Timmy Basilio MD Color Worker: Yamilet Cortes RVT Interpreting Physician: Charlie Solano MD Location: [facility] Indications: PVD. Conclusions 1. Left resting [...] supine position. Images were obtained using a [employer] 2100 vascular ultrasound machine. Arterial pressure indices: [...] 02/26/2019 9:13 am Signed by: CHARLIE SOLANO [facility] VL Vein Map for Preop Bypass [place] 02-25-2019 VL Vein Map for Preop Bypass Lower Ext Patient Name: CHRISTY FRANCIS Ultrasound Exam Date/Time 02/25/2019 13:56:27 EST Exam VL Vein Map for Preop Bypass Lower Ext Ordering Physician RICHY ENCINAS, MINOO Rivera Accession Number [id number] CPT4 Codes 02512 () Reason For Exam pre op CABG please ted legs Report [facility] Bilateral LE Vein Mapping For Bypass Report Ordering Physician: Minoo Encinas Color Worker: Yamilet Cortes RVT Interpreting Physician: Charlie Solano MD Location: [facility] Indications: Pre-op bypass. Conclusions 1. The right great saphenous vein and left great saphenous veinappears patent. 2. Vein sizes as noted below. Study data: Bilateral lower extremity vein mapping. [employer] 2D imaging. Location: Vascular laboratory. Procedure: A vascular evaluation was performed with the patient in the supine position. Images were obtained using a [employer] E9 vascular ultrasound machine. Vein mapping: + [...] 9:10 am Signed by: CHARLIE SOLANO Normal [facility] Glucose,Bedsideon 02-24-2019 Glucose [Mass/Vol] 285 mg/dL High 70-100 [facility] Comment on above: Result Comment: Test performed by glucose meter. Results may be 10%-15% lower than serum/plasma values. (CLIA ID [id number]) Performed By: #### B GLU #### [address] [place] [address] Glucose [Mass/Vol] 290 mg/dL High 70-100 [facility] Comment on above: Result Comment: Test performed by glucose meter. Results may be 10%-15% lower than serum/plasma values. (CLIA ID [id number]) Performed By: #### B GLU #### [facility] [address] [place] [address] Glucose [Mass/Vol] 302 mg/dL High 70-100 [facility] Comment on above: Result Comment: Test performed by glucose meter. Results may be 10%-15% lower than serum/plasma values. (CLIA ID [id number]) Performed By: #### B GLU #### [facility] [address] [place] [address] POCT Glucoseon 02-24-2019 Glucose [Mass/Vol] 272 mg/dL High 70 - 100 mg/dL [place] Comment on above: Test performed by gl ucose meter. Results may be 10%-15% lower than serum/plasma values. (CLIA ID [id number]) Interpretation and review of laboratory results Abnormal [place] Test Performed by [facility], [address] [place] [address] [place], [place] Glucose [Mass/Vol] 285 mg/dL High 70 - 100 mg/dL [place] Comment on above: Test performed by gl ucose meter. Results may be 10%-15% lower than serum/plasma values. (CLIA ID [id number]) Interpretation and review of laboratory results Abnormal [facility] [place] Test Performed by [facility] [employer] [facility] [facility], [address] [place] [address] [facility] Glucose [Mass/Vol] 290 mg/dL High 70 - 100 mg/dL [facility] [place] Comment on above: Test performed by gl ucose meter. Results may be 10%-15% lower than serum/plasma values. (CLIA ID [id number]) Interpretation and review of laboratory results Abnormal [facility] [place] Test Performed by [employer] [facility], [address] [place] [address] [facility] [place] Glucose [Mass/Vol] 302 mg/dL High 70 - 100 mg/dL [facility] [place] Comment on above: Test performed by gl ucose meter. Results may be 10%-15% lower than serum/plasma values. (CLIA ID [id number]) Interpretation and review of laboratory results Abnormal [facility] [place] Test Performed by [facility] [employer] [facility] [facility], [address] [place] [address] [facility] Bedside spirometryon [address] [place] [address] Incoming Cardiology Results From [facility]/[place] - 02/28/2019 12:48 PM EST Name: CHRISTY FRANCIS PatientID: [id number] Gender: Female Birthdate: 1950 Study Date: 02/23/2019 3:15:42 P Age: 69 Race: Other Race Height: 62.0 in, 157.5 cm Weight: 176.0 lbs, 80.0 kg Smoke Status: Smokes Pack Years: 26.Tbco Prod: Cigarettes Ordering Physician: [id number] Interpreting Physician: [id number] Printing 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: Jennifer Pressley Location: [facility] Diagnosis: CAD, HFrEF, pre-surgical values Spirometry Units Pred PreDrug Pre%Pred Post Post%Pred %Change FVC L,btps 2.79 1.80 64. FEV1 L,btps 2.11 1.33 63. FEV1/FVC (%) % 76. 74. 97. UHV45-72% L/s 1.83 1.01 55. FEFmax L/s 5.42 [...] /MIP cmH2O -68.81 PEmax /MEP cmH2O 90.11 TRANSLATIONAL SPECIALIST NOTES Calibration check passed with acceptable system performance. Spirometry best effort, met acceptability and repeatability guidelines. Pt sitting upright in bedside chair with both feet on ground. [address] [place] Tests to perform: RT17 - BEDSIDE [...] Possible moderate restriction #2. Small airways obstruction [place], [place] Name: CHRISTY FRANCIS PatientID: [id number] Gender: Female Birthdate: 1950 Study Date: 02/23/2019 3:15:42 P Age: 69 Race: Other Race Height: 62.0 in, 157.5 cm Weight: 176.0 lbs, 80.0 kg Smoke Status: Smokes Pack Years: 26.Tbco Prod: Cigarettes Ordering Physician: [id number] Interpreting Physician: [id number] Printing 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: Jennifer Testing Location: [facility] Diagnosis: CAD, HFrEF, pre-surgical values Spirometry Units Pred PreDrug Pre%Pred Post Post%Pred %Change FVC L,btps 2.79 1.80 64. FEV1 L,btps 2.11 1.33 63. FEV1/FVC (%) % 76. 74. 97. HFC03-26% L/s 1.83 1.01 55. FEFmax L/s 5.42 [...] /MIP cmH2O -68.81 PEmax /MEP cmH2O 90.11 TRANSLATIONAL SPECIALIST NOTES Calibration check passed with acceptable system performance. Spirometry best effort, met acceptability and repeatability guidelines. Pt sitting upright in bedside chair with both feet on ground. [address]- [place] Tests to perform: RT17 - BEDSIDE [...] Possible moderate restriction #2. Small airways obstruction [place], [place] CBCon 02-23-2019 Erythrocyte distribution width (RBC) [Ratio] 13.1 % 11.5 - 14.5 % [place] Hematocrit (Bld) [Volume fraction] 44.3 % 35 - 47 % [place] Hemoglobin (Bld) [Mass/Vol] 15.1 g/dL 11.7 - 16 g/dL [place] MCH (RBC) [Entitic mass] 30.8 pg 26 - 34 pg [place] MCHC (RBC) [Mass/Vol] 34.0 % 32 - 36 % [place] MCV (RBC) [Entitic vol] 90.3 fL 79 - 98 fL [place] Platelet mean volume (Bld) [Entitic vol] 9.4 fL 7.4 - 10.4 fL [place], [place] Platelets (Bld) [#/Vol] 212 10*3/uL 140 - 440 10*3/uL [place] RBC (Bld) [#/Vol] 4.90 10*6/uL 3.8 - 5.2 10*6/uL [place] WBC (Bld) [#/Vol] 8.6 10*3/uL 3.6 - 10.7 10*3/uL [place] Test Performed by [facility], [address] [place] [address] [place], [place] CR Chest Portableon 02-24-20 19 CR Chest Portable Patient Name: CHRISTY FRANCIS Diagnostic Radiology Exam Date/Time 02/23/2019 17:30:22 EST Exam CR Chest Portable Ordering Physician RICHY ENCINAS, MINOO Rivera Accession Number [id number] CPT4 Codes 57469 () Reason For Exam preop CABG Report [...] Transcribed Date and Time: 02/23/2019 9:18 Normal [facility] Comp Panel with Mg Reflexon 02-23-2019 Calcium [Mass/Vol] 9.1 mg/dL Normal 8.4-10.4 [facility] Comment on above: Performed By: #### Papito AVILA CMP3M #### [facility] [address], [place] ALP [Catalytic activity/Vol] 57 U/L Normal 38-126 [facility] Comment on above: Performed By: #### Papito AVILA CMP3M #### [facility] [address], [place] ALT [Catalytic activity/Vol] 53 U/L Normal 13-69 [facility] Comment on above: Performed By: #### Papito AVILA CMP3M #### [facility] [address] [place], [place] Anion gap [Moles/Vol] 8 Normal [facility] Comment on above: Performed By: #### Papito AVILA CMP3M #### [facility] [address], [place] AST [Catalytic activity/Vol] 49 U/L High 15-46 [facility] Comment on above: Performed By: #### Papito AVILA CMP3M #### [facility] [address], [place] Bilirubin [Mass/Vol] 0.5 mg/dL Normal 0.2-1.3 [facility] Comment on above: Performed By: #### Papito AVILA CMP3M #### [facility] [address], [place] CO2 [Moles/Vol] 21 mmol/L Low 22-30 [facility] Comment on above: Performed By: #### H AUSTIN CMP3M #### [facility] [address], [place] Glucose [Mass/Vol] 288 mg/dL High 70-100 [facility] Comment on above: Performed By: #### H AUSTIN CMP3M #### [facility] [address], [place] Protein [Mass/Vol] 7.0 g/dL Normal 6.3-8.2 [facility] Comment on above: Performed By: #### H AUSTIN CMP3M #### [facility] [address], [place] Urea nitrogen [Mass/Vol] 24 mg/dL High 7-20 [facility] Comment on above: Performed By: #### H AUSTIN CMP3M #### [facility] [address], [place] Creatinine [Mass/Vol] 1.03 mg/dL Normal 0.52-1.25 [facility] Comment on above: Performed By: #### H AUSTIN CMP3M #### [facility] [address], [place] GFR/1.73 sq M predicted among blacks MDRD (S/P/Bld) [Vol rate/Area] mL/min/{1.73_m2} Normal >60 [facility] Comment on above: Performed By: #### H AUSTIN CMP3M #### [facility] [address], [place] GFR/1.73 sq M predicted among non-blacks MDRD (S/P/Bld) [Vol rate/Area] 53.1 mL/min/{1.73_m2} Normal >60 [facility] Comment on above: Result Comment: Sour ce- MDRD equation with creatinine calibration to IDMS(NKDEP) eGFR not recommended for drug dose adjustment Performed By: #### H AUSTIN CMP3M #### [facility] [address], [place] Albumin [Mass/Vol] 3.9 g/dL Normal 3.5-5.0 [facility] Comment on above: Performed By: #### H MEGHNA AVILA3M #### [facility] [address], [place] Chloride [Moles/Vol] 106 mmol/L Normal 98-107 [facility] Comment on above: Performed By: #### H MEGHNA AVILA3M #### [facility] [address], [place] Potassium [Moles/Vol] 4.8 mmol/L Normal 3.5-5.1 [facility] Comment on above: Performed By: #### H MEGHNA AVILA3M #### [facility] [address], [place] Sodium [Moles/Vol] 136 mmol/L Normal 135-145 [facility] Comment on above: Performed By: #### Papito AVILA CMP3M #### [facility] [address] [place], [place] Comprehensive Metabolic Pane l w/ Reflex to MGon 02-23-2019 Albumin [Mass/Vol] 3.9 g/dL 3.5 - 5 g/dL [place], [place] ALP [Catalytic activity/Vol] 57 U/L 38 - 126 U/L [place], [place] ALT [Catalytic activity/Vol] 53 U/L 13 - 69 U/L [place] Anion gap [Moles/Vol] 8 mmol/L [place], [place] AST [Catalytic activity/Vol] 49 U/L High 15 - 46 U/L [place] Bilirubin Ql (U) 0.5 mg/dL 0.2 - 1.3 mg/dL [place] Calcium [Mass/Vol] 9.1 mg/dL 8.4 - 10. 4 mg/dL [place] Chloride [Moles/Vol] 106 mmol/L 98 - 10 7 mmol/L [place] CO2 [Moles/Vol] 21 mmol/L Low 22 - 30 mmol/L [place] Creatinine [Mass/Vol] 1.03 mg/dL 0.52 - 1.25 mg/dL [place] EGFR IF NonAfrican [place] 53.1 mL/min >60 [place] Comment on above: Source- MDRD equatio n with creatinine calibration to IDMS(NKDEP) eGFR not recommended for drug dose adjustment GFR/1.73 sq M predicted among blacks MDRD (S/P/Bld) [Vol rate/Area] mL/min/{1.73_m2} >60 mL/min [place], [place] Glucose [Mass/Vol] 288 mg/dL High 70 - 100 mg/dL [place] Interpretation and review of laboratory results Abnormal [place] Potassium [Moles/Vol] 4.8 mmol/L 3.5 - 5.1 mmol/L [place] Protein [Mass/Vol] 7.0 g/dL 6.3 - 8.2 g/dL [place] Sodium [Moles/Vol] 136 mmol/L 135 - 145 mmol/L [place] Urea nitrogen [Mass/Vol] 24 mg/dL High 7 - 20 mg/dL [place] Test Performed by [facility], [address] [place] [id number] [place] [address] Glucose,Bedsideon 02-23-2019 Glucose [Mass/Vol] 296 mg/dL High 70-100 [place] Comment on above: Test performed by gl ucose meter. Results may be 10%-15% lower than serum/plasma values. (CLIA ID [id number]) Result Comment: Test performed by glucose meter. Results may be 10%-15% lower than serum/plasma values. (CLIA ID [id number]) Performed By: #### B GLU #### [address] [address] Glucose [Mass/Vol] 328 mg/dL High 70-100 [facility] Comment on above: Result Comment: Test performed by glucose meter. Results may be 10%-15% lower than serum/plasma values. (CLIA ID [id number]) Performed By: #### B GLU #### [address] [address] [address] [place], [place] Glucose [Mass/Vol] 348 mg/dL High 70-100 [facility] Comment on above: Result Comment: Test performed by glucose meter. Results may be 10%-15% lower than serum/plasma values. (CLIA ID [id number]) Performed By: #### B GLU #### [address], [place] Glucose [Mass/Vol] 315 mg/dL High 70-100 [facility] Comment on above: Result Comment: Test performed by glucose meter. Results may be 10%-15% lower than serum/plasma values. (CLIA ID [id number]) Performed By: #### B GLU #### [address], [place] Hemogramon 02-23-2019 Erythrocyte distribution width (RBC) [Ratio] 13.1 % Normal 11.5-14.5 [facility] Comment on above: Performed By: #### Papito AVILA CMP3M #### [address] [place], [place] Hematocrit (Bld) [Volume fraction] 44.3 % Normal 35.0-47.0 [facility] Comment on above: Performed By: #### Papito AVILA CMP3M #### [address] [place], [place] Hemoglobin (Bld) [Mass/Vol] 15.1 g/dL Normal 11.7-16.0 [facility] Comment on above: Performed By: #### Papito AVILA CMP3M #### [address] [place], [place] MCH (RBC) [Entitic mass] 30.8 pg Normal 26.0-34.0 [facility] Comment on above: Performed By: #### Papito AVILA CMP3M #### [address] [place], [place] MCHC (RBC) [Mass/Vol] 34.0 % Normal 32.0-36.0 [facility] Comment on above: Performed By: #### Papito AVILA CMP3M #### [facility] [address] [place] [address] MCV (RBC) [Entitic vol] 90.3 fL Normal 79.0-98.0 [facility] Comment on above: Performed By: #### H AUSTIN CMP3M #### [facility] [address] [place] [address] Platelet mean volume (Bld) [Entitic vol] 9.4 fL Normal 7.4-10.4 [facility] Comment on above: Performed By: #### H AUSTIN CMP3M #### [address] [place] [address] Platelets (Bld) [#/Vol] 212 10*3/uL Normal 140-440 [facility] Comment on above: Performed By: #### H AUSTIN CMP3M #### [address] [place], [place] RBC (Bld) [#/Vol] 4.90 10*6/uL Normal 3.80-5.20 [facility] Comment on above: Performed By: #### H AUSTIN CMP3M #### [address] [place] [address] WBC (Bld) [#/Vol] 8.6 10*3/uL Normal 3.6-10.7 [facility] Comment on above: Performed By: #### Papito AVILA CMP3M #### [address] [place] [address] POCT Glucoseon 02-23-2019 Interpretation and review of laboratory results Abnormal [employer], [place] Test Performed by [facility], [address] [place] [address] [facility] [place], [place] Glucose [Mass/Vol] 328 mg/dL High 70 - 100 mg/dL [place], [place] Comment on above: Test performed by gl ucose meter. Results may be 10%-15% lower than serum/plasma values. (CLIA ID [id number]) Interpretation and review of laboratory results Abnormal [facility] [place], [place] Test Performed by [facility], [facility] [place] [address] [place], [place] Glucose [Mass/Vol] 348 mg/dL High 70 - 100 mg/dL [place] Comment on above: Test performed by gl ucose meter. Results may be 10%-15% lower than serum/plasma values. (CLIA ID [id number]) Interpretation and review of laboratory results Abnormal [facility], [place] Test Performed by [facility], [address] [place] [address] [place], [place] Glucose [Mass/Vol] 315 mg/dL High 70 - 100 mg/dL [place] Comment on above: Test performed by gl ucose meter. Results may be 10%-15% lower than serum/plasma values. (CLIA ID [id number]) Interpretation and review of laboratory results Abnormal [place], [place] Test Performed by [facility], [address] [place] [address] [place], [place] XR CHEST PORTABLEon 02-24-20 Patient Name: CHRISTY FRANCIS ---Diagnostic Radiology--- Exam Date/Time 02/23/2019 17:30:22 EST Exam CR Chest Portable Ordering Physician RICHY ENCINAS, MINOO Rivera Accession Number [id number] CPT4 Codes 95072 () Reason For Exam preop CABG Report [...] ALFRED Transcribed Date and Time: 02/23/2019 9:18 [place], [place] Brian, Kathie Incoming Radiology Results From [facility] - 02/23/2019 9:20 PM EST Patient Name: CHRISTY FRANCIS ---Diagnostic Radiology--- Exam Date/Time 02/23/2019 17:30:22 EST Exam CR Chest Portable Ordering Physician RICHY ENCINAS, MINOO Rivera Accession Number [id number] CPT4 Codes 69180 () Reason For Exam preop CABG Report [...] ALFRED Transcribed Date and Time: 02/23/2019 9:18 [place], [place] Glucose,Bedsideon 02-22-2019 Glucose [Mass/Vol] 283 mg/dL High 70-100 [facility] Comment on above: Result Comment: Test performed by glucose meter. Results may be 10%-15% lower than serum/plasma values. (CLIA ID [id number]) Performed By: #### B GLU #### [facility] [address] [place] [address] Glucose [Mass/Vol] 200 mg/dL High 70-100 [facility] Comment on above: Result Comment: Test performed by glucose meter. Results may be 10%-15% lower than serum/plasma values. (CLIA ID [id number]) Performed By: #### B GLU #### [facility] [address] [place] [address] POCT Glucoseon 02-22-2019 Glucose [Mass/Vol] 283 mg/dL High 70 - 100 mg/dL [place] Comment on above: Test performed by gl ucose meter. Results may be 10%-15% lower than serum/plasma values. (CLIA ID [id number]) Interpretation and review of laboratory results Abnormal [facility] [place], [place] Test Performed by [facility], [facility] [place] [address] [employer], [place] Glucose [Mass/Vol] 200 mg/dL High 70 - 100 mg/dL [facility] [place] Comment on above: Test performed by gl ucose meter. Results may be 10%-15% lower than serum/plasma values. (CLIA ID [id number]) Interpretation and review of laboratory results Abnormal [facility] [place], [place] Test Performed by [facility], [facility] [place] [address] [facility] [place] Vital Signs Date Time Vital Sign Value Performing Clinician Facility 2025 07:55-0400 Body height 157.[address] Marielos Perla DO Work Phone: [facility] 2025 07:55-0400 Body mass index (BMI) [Ratio] 30.5 kg/m2 Dr. Marielos Perla DO Work Phone: [facility] 2025 07:55-0400 Body weight 75.[address] Marielos Perla DO Work Phone: [facility] 2025 07:55-0400 Diastolic blood pressure 75 mm[Hg] Dr. Marielos Perla DO Work Phone: [facility] 2025 07:55-0400 Heart rate 93 /min Dr. Marielos Perla DO Work Phone: [facility] 2025 07:55-0400 Respiratory rate 18 /min Dr. Marielos Perla DO Work Phone: [facility] 2025 07:55-0400 SaO2% (BldA) [Mass fraction] 96 % Dr. Marielos Perla DO Work Phone: [facility] 2025 07:55-0400 Systolic blood pressure 131 mm[Hg] Dr. Marielos Perla DO Work Phone: [facility] 01-18-2025 09:28-0400 Body height 157.[address] Marielos Perla DO Work Phone: [facility] 01-18-2025 09:28-0400 Body mass index (BMI) [Ratio] 29.9 kg/m2 Dr. Marielos Perla DO Work Phone: [facility] 01-18-2025 09:28-0400 Body weight 74.[address] Marielos Perla DO Work Phone: [facility] 01-10-2025 10:46-0400 Body height 157.[address] Marielos Perla DO Work Phone: [facility] 01-10-2025 10:46-0400 Body mass index (BMI) [Ratio] 30.5 kg/m2 Dr. Marielos Perla DO Work Phone: [facility] 01-10-2025 10:46-0400 Body weight 75.[address] Marielos Perla DO Work Phone: [facility] 01-10-2025 10:46-0400 Diastolic blood pressure 74 mm[Hg] Dr. Marielos Perla DO Work Phone: [facility] 01-10-2025 10:46-0400 Heart rate 98 /min Dr. Marielos Perla DO Work Phone: [facility] 01-10-2025 10:46-0400 Systolic blood pressure 125 mm[Hg] Dr. Marielos Perla DO Work Phone: [facility] 01-08-2025 16:00-0400 Diastolic blood pressure 105 mm[Hg] Dr. Marielos Perla DO Work Phone: [facility] 01-08-2025 16:00-0400 Heart rate 89 /min Dr. Marielos Perla DO Work Phone: [facility] 01-08-2025 16:00-0400 Respiratory rate 14 /min Dr. Marielos Perla DO Work Phone: [facility] 01-08-2025 16:00-0400 SaO2% (BldA) [Mass fraction] 92 % Dr. Marielos Perla DO Work Phone: [facility] 01-08-2025 16:00-0400 Systolic blood pressure 122 mm[Hg] Dr. Marielos Perla DO Work Phone: [facility] 01-08-2025 07:45-0400 Body temperature 97.4 [degF] Dr. Marielos Perla DO Work Phone: [facility] 01-07-2025 16:04-0400 Body mass index (BMI) [Ratio] 30.2 kg/m2 Dr. Marielos Perla DO Work Phone: [facility] 01-07-2025 16:04-0400 Body weight 75.[address] Marielos Perla DO Work Phone: [facility] 01-03-2025 09:30-0400 Body temperature 97.7 [degF] Dr. Marielos Perla DO Work Phone: [facility] 01-03-2025 09:30-0400 Body weight 74.[address] Marielos Perla DO Work Phone: [facility] 01-03-2025 09:30-0400 Diastolic blood pressure 64 mm[Hg] Dr. Marielos Perla DO Work Phone: [facility] 01-03-2025 09:30-0400 Heart rate 106 /min Dr. Marielos Perla DO Work Phone: [facility] 01-03-2025 09:30-0400 Respiratory rate 16 /min Dr. Marielos Perla DO Work Phone: [facility] 01-03-2025 09:30-0400 SaO2% (BldA) [Mass fraction] 97 % Dr. Marielos Perla DO Work Phone: [facility] 01-03-2025 09:30-0400 Systolic blood pressure 108 mm[Hg] Dr. Marielos Perla DO Work Phone: [facility] 12-12-2024 10:53-0400 Body temperature 97.7 [degF] Dr. Marielos Perla DO Work Phone: [facility] 12-12-2024 10:53-0400 Body weight 76.[address] Marielos Perla DO Work Phone: [facility] 12-12-2024 10:53-0400 Diastolic blood pressure 78 mm[Hg] Dr. Marielos Perla DO Work Phone: [facility] 12-12-2024 10:53-0400 Heart rate 112 /min Dr. Marielos Perla DO Work Phone: [facility] 12-12-2024 10:53-0400 Respiratory rate 18 /min Dr. Marielos Perla DO Work Phone: [facility] 12-12-2024 10:53-0400 SaO2% (BldA) [Mass fraction] 98 % Dr. Marielos Perla DO Work Phone: [facility] 12-12-2024 10:53-0400 Systolic blood pressure 126 mm[Hg] Dr. Marielos Perla DO Work Phone: [facility] 11-02-2024 10:17-0400 Body height 157.[address] Marielos Perla DO Work Phone: [facility] 11-02-2024 10:17-0400 Body mass index (BMI) [Ratio] 30.5 kg/m2 Dr. Marielos Perla DO Work Phone: [facility] 11-02-2024 10:17-0400 Body weight 75.[address] Marielos Perla DO Work Phone: [facility] 11-02-2024 10:17-0400 Diastolic blood pressure 65 mm[Hg] Dr. Marielos Perla DO Work Phone: [facility] 11-02-2024 10:17-0400 Respiratory rate 18 /min Dr. Marielos Perla DO Work Phone: [facility] 11-02-2024 10:17-0400 Systolic blood pressure 112 mm[Hg] Dr. Marielos Perla DO Work Phone: [facility] 06-05-2024 10:52-0500 Body height 157.[address] Marielos Perla DO Work Phone: [facility] 06-05-2024 10:52-0500 Body mass index (BMI) [Ratio] 34.2 kg/m2 Dr. Marielos Perla DO Work Phone: [facility] 06-05-2024 10:52-0500 Body weight 84.[address] Marielos Perla DO Work Phone: [facility] 06-05-2024 10:52-0500 Diastolic blood pressure 73 mm[Hg] Dr. Marielos Perla DO Work Phone: [facility] 06-05-2024 10:52-0500 Heart rate 98 /min Dr. Marielos Perla DO Work Phone: [facility] 06-05-2024 10:52-0500 Respiratory rate 18 /min Dr. Marielos Perla DO Work Phone: [facility] 06-05-2024 10:52-0500 Systolic blood pressure 119 mm[Hg] Dr. Marielos Perla DO Work Phone: [facility] 11-18-2022 13:38-0400 Body height 157.[address] Marielos Perla Work Phone: [facility] 11-18-2022 13:38-0400 Body mass index (BMI) [Ratio] 35.8 kg/m2 Dr. Marielos Perla Work Phone: [facility] 11-18-2022 13:38-0400 Body weight 88.[address] Marielos Perla Work Phone: [facility] 11-18-2022 13:38-0400 Diastolic blood pressure 80 mm[Hg] Dr. Marielos Perla Work Phone: [facility] 11-18-2022 13:38-0400 Heart rate 93 /min Dr. Marielos Perla Work Phone: [facility] 11-18-2022 13:38-0400 Respiratory rate 18 /min Dr. Marielos Perla Work Phone: [facility] 11-18-2022 13:38-0400 SaO2% (BldA) [Mass fraction] 95 % Dr. Marielos Perla Work Phone: [facility] 11-18-2022 13:38-0400 Systolic blood pressure 146 mm[Hg] Dr. Marielos Perla Work Phone: [facility] 08-20-2022 09:54-0400 Body height 157.[address] Marielos Perla Work Phone: [facility] 08-20-2022 09:54-0400 Body mass index (BMI) [Ratio] 35.3 kg/m2 Dr. Marielos Perla Work Phone: [facility] 08-20-2022 09:54-0400 Body weight 87.[address] Marielos Perla Work Phone: [facility] 08-20-2022 09:54-0400 Diastolic blood pressure 79 mm[Hg] Dr. Marielos Perla Work Phone: [facility] 08-20-2022 09:54-0400 Heart rate 76 /min Dr. Marielos Perla Work Phone: [facility] 08-20-2022 09:54-0400 Respiratory rate 18 /min Dr. Marielos Perla Work Phone: [facility] 08-20-2022 09:54-0400 Systolic blood pressure 139 mm[Hg] Dr. Marielos Perla Work Phone: [facility] 03-29-2022 18:34-0500 Body temperature 98.3 [degF] [facility] 03-29-2022 18:34-0500 Diastolic blood pressure 85 mm[Hg] [facility] 03-29-2022 18:34-0500 Heart rate 74 /min [facility] 03-29-2022 18:34-0500 Respiratory rate 18 /min [facility] 03-29-2022 18:34-0500 SaO2% (BldA) [Mass fraction] 99 % [facility] 03-29-2022 18:34-0500 Systolic blood pressure 125 mm[Hg] [facility] 03-29-2022 17:27-0500 Body height 157.48 cm [facility] 03-29-2022 17:27-0500 Body mass index (BMI) [Ratio] 33.8 kg/m2 [facility] 03-29-2022 17:27-0500 Body weight 83.91 kg [facility] 03-03-2019 15:30-0500 BP Diastolic 55 mm[Hg] [facility] , [place] 03-03-2019 15:30-0500 BP Systolic 124 mm[Hg] [facility] , [place] 03-03-2019 15:30-0500 Pulse (Heart Rate) 83 /min [place], [place] 03-03-2019 15:30-0500 Pulse Oximetry 96 % [facility] , [place] 03-03-2019 15:30-0500 Respiratory Rate 18 /min [facility], [place] 03-03-2019 11:51-0500 Body Temperature 97.81 [degF] [facility], [place] 03-03-2019 00:00-0500 BMI (Body Mass Index) 34.14 kg/m2 [facility], [place] 03-03-2019 00:00-0500 Body weight 81.97 kg [place], [place] 02-28-2019 12:00-0500 Height 154.9 cm [place], [place] Encounters Encounter Date Encounter Type Care Provider Facility Start: 03-22-2025 ambulatory Yaa Buenrostro lity:[facility] Start: 03-08-2025 ambulatory Jennifer HOLLAND Facility:[facility] Start: 02-26-2025 End: 02-26-2025 ambulatory Lidia Santiago Facility:[facility] Start: 02-14-2025 End: 02-14-2025 ambulatory Grant Torres Facility:[facility] Start: 02-14-2025 End: 02-14-2025 ambulatory Marielos Perla Facility:[facility] Start: 02-13-2025 End: 02-13-2025 ambulatory Lidia Santiago Facility:[facility] Start: 2025 End: 2025 Patient encounter procedure Akin HOLLAND -Laboratory Work Phone: Start: 2025 End: 2025 Patient encounter procedure Akin HOLLAND -[facility] Work Phone: Start: 2025 End: [address] Marielos Perla DO Work Phone: -[facility] Start: 2025 End: 2025 ambulatory Akin Jauregui Facility:[facility] Start: 01-29-2025 End: 01-29-2025 Patient encounter procedure Lamar Olivera [employer] -[facility] Work Phone: Start: 01-29-2025 End: 01-29-2025 ambulatory Lamar Olivera NP Facility:[facility] Start: 01-22-2025 End: 01-22-2025 Patient encounter procedure Ava Young PA -Cat [facility] Work Phone: Start: 01-22-2025 End: 01-22-2025 ambulatory Ava Young Facility:[facility] Start: 01-18-2025 End: 01-18-2025 Patient encounter procedure Lidia HOLLAND -[facility] Work Phone: Start: 01-18-2025 End: 01-18-[address] Marielos Perla DO Work Phone: -[facility] Start: 01-10-2025 End: 01-10-[address] Marielos Perla DO Work Phone: -[facility] Start: 01-10-2025 End: 01-10-2025 Patient encounter procedure Lamar Olivera [employer]PER[employer] -Laboratory Specimen Work Phone: Start: 01-10-2025 End: 01-10-2025 Patient encounter procedure Lamar Olivera [employer]PER[employer]OR[employer] -[facility] Work Phone: Start: 01-10-2025 End: 01-10-[address] Marielos Perla DO Work Phone: -[facility] Start: 01-10-2025 End: 01-10-2025 ambulatory Lamarosiris Olivera SECURITY SHIFT SUPERVISOR Facility:[facility] Start: 01-08-2025 Non-patient / Non-visit Dr. Rupali Lott DO -[facility] Work Phone: Start: 01-08-2025 Non-patient / Non-visit Dr. Fred ROMERO -[facility] Start: 01-07-2025 End: 01-08-2025 ambulatory Jorge Anderson Facility:[facility] Start: 01-07-2025 End: 01-08-2025 Evaluation and management of inpatient Dr. Rupali Lott DO -[facility] Unit Work Phone: Start: 01-07-2025 End: 01-08-[address] Marielos Perla DO Work Phone: -Progressive Care Unit Start: 01-03-2025 End: 01-03-2025 Patient encounter procedure Ava HOLLAND -[facility] Work Phone: Start: 01-03-2025 End: 01-03-[address] Marielos Perla DO Work Phone: -[facility] Start: 12-22-2024 Non-patient / Non-visit Dr. Grant coburn MD -[facility] Start: 12-22-2024 End: 12-22-[address] Marielos Perla DO Work Phone: -Cardiovascular Services Start: 12-22-2024 End: 12-22-2024 Patient encounter procedure Ava HOLLAND -[facility] Work Phone: Start: 12-22-2024 End: 12-22-2024 ambulatory Ava Young Facility:[facility] Start: 12-12-2024 End: 12-12-2024 Patient encounter procedure Ava HOLLAND -[facility] Work Phone: Start: 12-12-2024 End: 12-12-[address] Marielos Perla DO Work Phone: -[facility] Start: 12-06-2024 End: 12-06-[address] Marielos Perla DO Work Phone: -[facility] [place] Start: 12-06-2024 End: 12-06-2024 Patient encounter procedure Jennifer HOLLAND -[facility] Work Phone: Start: 12-06-2024 End: 12-06-2024 ambulatory Jennifer HOLLAND Facility:[facility] Start: 11-29-2024 End: 11-29-[address] Marielos Perla DO Work Phone: -[facility] Start: 11-29-2024 End: 11-29-[address] Marielos Perla DO -[facility] Work Phone: Start: 11-29-2024 End: 11-29-2024 ambulatory Marielos Perla Facility:[facility] Start: 11-02-2024 End: 11-02-2024 Patient encounter procedure Jennifer HOLLAND -[facility] Work Phone: Start: 11-02-2024 End: 11-02-[address] Marielos Perla DO Work Phone: -[facility] Start: 11-02-2024 End: 11-02-2024 ambulatory Jennifer HOLLAND Facility:[facility] Start: 09-18-2024 End: 09-18-[address] Marielos Perla DO Work Phone: [facility] Work Phone: Start: 09-18-2024 End: 09-18-2024 Patient encounter procedure Rand Mckeon SECURITY SHIFT SUPERVISOR-C -[facility] [place] Work Phone: Start: 09-18-2024 End: 09-18-2024 ambulatory Rand Mckeon Facility:[facility] Start: 06-05-2024 End: 06-05-2024 Patient encounter procedure Charile Johnson SECURITY SHIFT SUPERVISOR-C -[facility] Work Phone: Start: 06-05-2024 End: 06-05-2024 ambulatory Charlie Johnson NP Facility:[facility] Start: 03-09-2024 End: 03-09-2024 ambulatory Charlie Johnson SECURITY SHIFT SUPERVISOR Facility:[facility] Start: 07-19-2023 End: 07-19-2023 ambulatory [facility] Work Phone: Start: 07-19-2023 End: 07-19-2023 Patient encounter procedure [facility]-Radiology, [place] Work Phone: Start: 06-14-2023 End: 06-14-2023 ambulatory [facility] Work Phone: Start: 06-14-2023 End: 06-14-2023 Patient encounter procedure [facility]-Cat Scan, [facility] Work Phone: Start: 11-25-2022 End: 11-25-[address] Marielos Perla Work Phone: [facility] Work Phone: Start: 11-25-2022 End: 11-25-[address] Marielos Perla Work Phone: [facility]-Pulmonary Services/Neurology Work Phone: Start: 11-23-2022 End: 11-23-[address] Marielos Perla Work Phone: [facility] Work Phone: Start: 11-23-2022 End: 11-23-[address] Marielos Perla Work Phone: [facility] Start: 11-18-2022 End: 11-18-[address] Marielos Perla Work Phone: [facility] Work Phone: Start: 08-20-2022 End: 08-20-[address] Marielos Perla Work Phone: [facility] Work Phone: Start: 08-14-2022 End: 08-14-[address] Marielos Perla Work Phone: [facility] Work Phone: Start: 08-14-2022 End: 08-14-[address] Marielos Perla Work Phone: [facility]-Laboratory Start: 07-08-2022 End: 07-08-[address] Marielos Perla Work Phone: [facility] Work Phone: Start: 07-08-2022 End: 07-08-[address] Marielos Perla Work Phone: [facility]-Cardiovascula r Services Start: 06-16-[address] Marielos Perla Work Phone: [facility]-Physical Therapy Start: 06-09-2022 End: 06-09-[address] Marielos Perla Work Phone: [facility] Start: 05-23-2022 End: 05-23-2022 ambulatory [facility] Work Phone: Start: 05-23-2022 End: 05-23-2022 Patient encounter procedure [facility]-MRI - [facility] Start: 03-29-2022 End: 03-29-2022 Emergency department patient visit [facility]-Emergency Department Start: 02-25-2022 End: 02-25-2022 ambulatory [facility] Work Phone: Start: 02-25-2022 End: 02-25-2022 Patient encounter procedure [facility]-Laboratory Start: 02-22-2019 End: 03-03-2019 Evaluation and management of inpatient Mil Pettit Work Phone: [facility] Comment on above: CAD in [place] artery (Primary Dx); S/P CABG x 3; Type 2 diabetes mellitus with other circulatory complication, with long-term current use of insulin (HCC) Procedures Date Procedure Procedure Detail Performing Clinician Start: 01-29-2025 Screening mammography D r. Marielso Perla DO Work Phone: Start: 01-22-2025 CT [...] 02-26-2019 Blood typing serologic abo Ronda Bellamy Haryr Work Phone: Start: 02-26-2019 Prothrombin time Ronda [...] artery bypass graft x 3 Charlie Johnson SECURITY SHIFT SUPERVISOR-C Comment on above: CABG x3 with FOLEY to LAD, SVG to OM 2, and SVG to PDA of RCA on 02/27/[address] Taylor at [facility]; Plan of Treatment Date Care Activity Detail Author Start: 01-29-2025 MG Breast - bilatera l Screening [facility] Start: 01-18-2025 X-ray of lumbosacral spine L/S Spine Bending Flex/Ext [facility] Start: 01-18-2025 XR Spine Lumbar and Sacrum Views [facility] Start: 01-08-2025 Patient discharge [facility] Start: 01-08-2025 Notification of physician [facility] Start: 01-08-2025 Patient education [facility] Start: 01-08-2025 Provision of activit y privileges [facility] Start: 01-08-2025 Pulse taking [facility] Start: 01-08-2025 Taking patient vital signs [facility] Start: 01-08-2025 Wound care [facility] Start: 01-08-2025 [facility] Start: 01-08-2025 Catheterization of vein [facility] Start: 01-08-2025 Notification of physician [facility] Start: 01-08-2025 Preoperative care [facility] Start: 01-08-2025 [facility] Start: 01-07-2025 End: 01-07-2025 [facility] Start: 01-07-2025 Care regimes management [facility] Start: 01-07-2025 Notification of physician [facility] Start: 01-07-2025 Referral to chemist physical [facility] Start: 01-07-2025 End: 01-07-2025 [facility] Start: 01-07-2025 Assessment of risk o f venous thromboembolism [facility] Start: 01-07-2025 Insertion of cathete r into peripheral vein [facility] Start: 01-07-2025 Measuring intake and output [facility] Start: 01-07-2025 Providing care accor ding to standard [facility] Start: 01-07-2025 Provision of activit y privileges [facility] Start: 01-07-2025 Referral for physica l therapy [facility] Start: 01-07-2025 Referral to occupati onal therapist [facility] Start: 01-07-2025 Following clinical pathway protocol [facility] Start: 01-07-2025 Admission procedure [facility] Start: 01-07-2025 [facility] Start: 01-03-2025 CT of abdominal aort a with contrast [facility] Start: 06-09-2022 Patient referral [facility] Work Phone: Start: 02-24-2020 Creatinine monitoring Creatinine mon itoring [place], [place] Start: 02-24-2020 Potassium monitoring Potassium monit [place]ing [place] Start: 03-14-2019 End: 03-14-2019 Office Visit 03/14/2019 Office Visit Cardiothoracic Surgery Ronda Carmona, [facility] [address] [place] [address] [phone] [address] [facility] Start: 02-24-2019 Annual Wellness Visi t (AWV) Annual Wellness Visit (AWV) [place], [place] Start: 12-18-2018 Influenza vaccination Flu vaccine (# 1) [place], [place] Start: 2015 DEXA (modify frequen cy per FRAX score) DEXA (modify frequency per FRAX score) [place] Start: 2015 Pneumococcal 65+ yea rs Vaccine (1 of 1 - PPSV23) Pneumococcal 65+ years Vaccine (1 of 1 - PPSV23) [place] Start: 01-31-2000 Breast cancer screen Breast cancer s creen [place] Start: 01-31-2000 Colon cancer screen colonoscopy Colon cancer screen colonoscopy [place] Start: 01-31-2000 Shingles Vaccine (1 of 2) Shingles V accine (1 of 2) [place] Start: 01-31-1968 Diabetic microalbumi ximena test Diabetic microalbuminuria test [place] Start: 1961 DTaP/Tdap/Td vaccine (1 - Tdap) DTaP/Tdap/Td vaccine (1 - Tdap) [place] Start: 01-31-1960 [object Object] Diabetic foot exam [facility] [place], [place] Start: 01-31-1960 A1C test (Diabetic o r Prediabetic) A1C test (Diabetic or Prediabetic) [place] Start: 01-31-1960 Diabetic retinal exam Diabetic retin al exam [place] Start: 01-31-1960 Lipid screen Lipid screen [place], [place] Start: 1950 Hepatitis C screen Hepatitis C scree n [place] Acapella Acapella Respira tory Care Routine Every 2hr while awake until discontinued starting 02/27/2019 [place] Comment on above: Every 2hr while awak e until discontinued starting 02/27/2019 Ankle brachial press ure index [facility] Basic metabolic 2000 panel Basic Metabolic Panel Lab Routine Daily until discontinued starting 02/27/2019, 4 completed [place] Comment on above: Daily until disconti nued starting 02/27/2019, 4 completed Basic metabolic 2008 panel with ionized calcium - Serum or Plasma [facility] Blood chemistry [facility] CBC CBC Lab Routine Daily until discontinued starting 02/27/2019, 5 completed [place] Comment on above: Daily until disconti nued starting 02/27/2019, 5 completed [facility] Treatment [place] Comment on above: 0800, 1200, 1600, 20 00 (respiratory use only) until discontinued starting 02/27/2019 Every 4hr until disc ontinued starting 03/02/2019 Incentive spirometry Incentive s pirometry Respiratory Care Routine Every 1hr while awake until discontinued starting 02/27/2019 [place] Comment on above: Every 1hr while awak e until discontinued starting 02/27/2019 Initiate Oxygen Ther apy Protocol Initiate Oxygen Therapy Protocol Respiratory Care Routine Daily until discontinued starting 02/27/2019 [place] Comment on above: Daily until disconti nued starting 02/27/2019 MR Lumbar spine [facility] Patient Education Bruises (Contu sions) ED Abrasion [facility] Work Phone: Patient referral [facility] Work Phone: POCT glucose [facility] [place] Comment on above: 4X Daily (AC & HS) u ntil discontinued starting 03/01/2019 As Needed until disc ontinued starting 03/01/2019 End: 02-23-2019 Urinalysis Urinalysis Lab Routine One Time for 1 Occurrences starting 02/23/2019 until 02/23/2019 [place] Comment on above: One Time for 1 Occur rences starting 02/23/2019 until 02/23/2019 Urinalysis Urinalysis Lab R outine 02/23/2019 6:49 PM EST [facility] XR CHEST PORTABLE XR CHEST MIHIR BLE Imaging Routine Daily until discontinued starting 02/28/2019, 4 completed [place] Comment on above: Daily until disconti nued starting 02/28/2019, 4 completed XR Lumbar spine 2 or 3 Views [facility] Immunizations Immunization Date Immunization Notes Care Provider Sher ferreira 01-18-2024 influenza, high dose seasonal, preservative-free Dr. Marielos Perla DO Work Phone: [facility] 07-11-2020 Covid (Pfizer) [facility] 07-09-2020 tetanus toxoid, redu deejay diphtheria toxoid, and acellular pertussis vaccine, adsorbed [facility] 06-20-2020 Covid (Pfizer) [facility] 02-01-2019 Influenza virus vaccine [facility] Payers Date Payer Category Payer Self-pay [id number] 2024 Unknown [id number] 2023 Medicare [id number] 2018 Medicare HUMANA MEDICARE HUMANA CHOICE-PPO MEDICARE xxxxxxxxx 2018-Present [address] [address] [place] [address] xxxxxxxxx [id number] Medicare [id number] Medicare MEDICARE PART A B [id number] Unknown [id number]2 Unknown [id number] 2.16.840.1.853476.3.579.2.462 Unknown [id number] 2.16.840.1.781102.3.579.2.462 Unknown [id number] 2.16.840.1.542393.3.579.2.462 Unknown [id number] 2.16.840.1.782484.3.579.2.462 Unknown [id number] 2.16.840.1.062463.3.579.2.462 Unknown [id number] 2.16.840.1.749638.3.579.2.462 Unknown [id number] 2.16.840.1.003648.3.579.2.462 Unknown [id number] 2.16.840.1.361631.3.579.2.462 Unknown [id number] 2.16.840.1.935812.3.579.2.462 Unknown [id number] 2.16.840.1.683882.3.579.2.462 Unknown [id number] 2.16.840.1.877371.3.579.2.462 Unknown [id number] 2.16.840.1.657477.3.579.2.462 Unknown [id number] 2.16.840.1.143761.3.579.2.462 Unknown [id number] 2.16.840.1.143410.3.579.2.462 Unknown [id number] 2.16.840.1.597937.3.579.2.462 Unknown [id number] 2.16.840.1.366659.3.579.2.462 Unknown [id number] 2.16.840.1.212258.3.579.2.462 Unknown [id number] 2.16.840.1.473869.3.579.2.462 Unknown [id number] 2.16.840.1.781710.3.579.2.462 Unknown [id number] 2.16.840.1.539850.3.579.2.462 Unknown [id number] 2.16.840.1.810577.3.579.2.462 Unknown [id number] 2.16.840.1.593662.3.579.2.462 Unknown [id number] 2.16.840.1.778154.3.579.2.462 Unknown [id number] 2.16.840.1.975969.3.579.2.462 Unknown [id number] 2.16.840.1.603703.3.579.2.462 Unknown [id number] 2.16.840.1.078595.3.579.2.462 Unknown [id number] 2.16.840.1.086812.3.579.2.462 Unknown [id number] 2.16.840.1.063183.3.579.2.462 Social History Date Type Detail Facility Start: 02-23-2019 End: 11-18-2022 Tobacco smoking status SDIS Unknown if ever smoked [facility] Sex Assigned At Not on file [place] Start: 01-15-2021 None [facility] Start: 01-15-2021 Homeless [facility] Start: 01-15-2021 Cigarettes [facility] Start: 1950 Sex Assigned At Female [facility] Start: 03-09-2024 End: 01-10-2025 Tobacco smoking status NHIS Current Light tobacco smoker [facility] Sex Female [facility] Medical Equipment Procedure Code Equipment Code Equipment Origin al Text Equipment Identifier Dates Test three times a day & as needed for symptoms of irregular blood glucose. [id number] Start: 03-03-2019 Goals Date Patient Goal Desired Activity /State Functional Status Date Assessment Result Facility 01-08-2025 Functional status Ambulates [facility] Work Phone: Mental Status Date Assessment Result Facility 01-08-2025 Cognitive function Voice/Name [facility] Work Phone: Clinical Notes 02-17-2019 to 2025 Note Date & Type Note Facility 2025 Progress note [facility] 01-10-2025 Progress note [facility] 01-08-2025 Consult note [facility] 01-08-2025 Discharge summary Note Date/Time January 08, 2025 2:20pm [facility] Medical Records Department [address] [place] [address] Discharge Summary 01/08/25 1357 MR#: [id number] Acct: [id number] Name: CHRISTY FRANCIS Rep #:[id number] : 1950 74 From: Rupali Lott DO PCP: Dr. Marielos Perla DO Status:ADM BRIAN Location: [place] [address] Providers Date of Admission: 01/07/25 Date of [...] who presented to the emergency department at [facility] on 01/07/2025 with a chief complaint of chest pain. She has an extensive cardiac history with previous CABG in 2019 at [facility] as well as PVD, HTN/HPL, [...] % (Auto) Cancelled, Lymph % (Auto) Cancelled, [place] % (Auto) Cancelled, Eos % (Auto) Cancelled, [...] Drop Cells Cancelled, Ovalocytes Cancelled, Stomatocytes Cancelled, Johnson-Loraine Bodies Cancelled, [place] Cells Cancelled, Bite Cells Cancelled, Crenated Cell [...] (Auto) 68.5, Lymph % (Auto) 13.2 L, [place] % (Auto) 10.8 H, Eos % (Auto) 6.3 H, Baso % (Auto) 0.7, Absolute Neuts (auto) 7.1, Absolute Lymphs (auto) 1.37, Nucleated RBC % 0 01/08/25 06:41: POC Glucose 189 H 01/08/25 11:17: POC Glucose 169 H Radiography Diagnostic Testing: Radiology Impression Chest CTA 01/07/25 13:24 IMPRESSION: No significant abnormality Reading Location: [facility] D/C Instructions Discharge Activity: Return to [...] Self Care Charges/Coding Visit Charges Inpatient E&M: 03198 Disch Hosp >30min 01/08/25 1420 <Electronically signed by Rupali Lott DO> Cosigner Signature (if applicable): CC: Dr. Jorge Anderson MD; Dr. Rupali Lott DO; Dr. Marielos Perla DO~ Signed [facility] Work Phone: 1(485) 423-387009-22-2025 Consult note [facility] Medical Records Department [address] [place] [address] Counseling Note - Pharmacy 01/08/25 1515 MR#: [id number] Acct: [id number] Name: CHRISTY FRANCIS Rep #:[id number] : 1950 74 From: Cecy Cheatham PCP: Dr. Marielos Perla DO Status:ADM BRIAN Y Location: [place] [address] Pharmacy [facility] Counseling Pharmacy Service has performed discharge medication [...] Signature (if applicable): Date CC: ~ Signed [facility]09-22-2025 Progress note Author Jorge Anderson [facility] Note Date/Time January 08, 2025 12:53pm [facility] Medical Records Department [address] [place] [address] Progress Note - Cardiology 01/08/25 1250 MR#: [id number] Acct: [id number] Name: CHRISTY FRANCIS Rep #:[id number] : 1950 74 From: Jorge Anderson MD PCP: Dr. Marielos Perla, DO Status:ADM BRIAN Location: [place] [address] Subjective Subjective Patient seen and evaluated. Underwent [...] L 01/07/25 12:32: Lymph % (Auto) Cancelled, [place] % (Auto) 9.1 01/07/25 12:32: [place] % (Auto) Cancelled, Eos % (Auto) 5.2 [...] Drop Cells Cancelled, Ovalocytes Cancelled, Stomatocytes Cancelled, Johnson-Loraine Bodies Cancelled, [place] Cells Cancelled, Bite Cells Cancelled, Crenated Cell [...] (Auto) 68.5, Lymph % (Auto) 13.2 L, [place] % (Auto) 10.8 H, Eos % (Auto) [...] L 01/07/25 12:32: Lymph % (Auto) Cancelled, [place] % (Auto) 9.1 01/07/25 12:32: [place] % (Auto) Cancelled, Eos % (Auto) 5.2 [...] (Auto) 68.5, Lymph % (Auto) 13.2 L, [place] % (Auto) 10.8 H, Eos % (Auto) 6.3 H, Baso % (Auto) 0.7, Absolute Neuts (auto) 7.1, Nucleated RBC % 0 Rhythm: EKG: ECHO: Stress Test: Cardiac Cath: PCI: CT Surgery: Holter monitor: EPS: PPM: CXR: Chest CT Scan: Radiography Diagnostic Testing: Radiology Impression Chest X-Ray 01/07/25 12:40 IMPRESSION: NO ACUTE FINDINGS. Reading Location: [facility] Chest CTA 01/07/25 13:24 IMPRESSION: No significant abnormality Reading Location: [facility] Physical Exam Const alert, oriented x3 [...] Cosigner Signature (if applicable): CC: ~ Signed [facility] Work Phone: 1(532) 468-547909-22-2025 Discharge summary [facility] Medical Records Department [address] [place] [address] Discharge Summary 01/08/25 0029 MR#: [id number] Acct: [id number] Name: CHRISTY FRANCIS Rep #:[id number] : 1950 74 From: Rupali Lott DO PCP: Dr. Marielos Perla DO Status:ADM BRIAN Location: [place] [address] Providers Date of Admission: 01/07/25 Date of [...] who presented to the emergency department at [facility] on 01/07/2025 with a chief complaint of chest pain. She has an extensive cardiac history with previous CABG in 2019 at [facility] as well as PVD, HTN/HPL, [...] % (Auto) Cancelled, Lymph % (Auto) Cancelled, [place] % (Auto) Cancelled, Eos % (Auto) Cancelled, [...] Drop Cells Cancelled, Ovalocytes Cancelled, Stomatocytes Cancelled, Johnson-Loraine Bodies Cancelled, [place] Cells Cancelled, Bite Cells Cancelled, Crenated Cell [...] (Auto) 68.5, Lymph % (Auto) 13.2 L, [place] % (Auto) 10.8 H, Eos % (Auto) 6.3 H, Baso % (Auto) 0.7, Absolute Neuts (auto) 7.1, Absolute Lymphs (auto) 1.37, Nucleated RBC % 0 01/08/25 06:41: POC Glucose 189 H 01/08/25 11:17: POC Glucose 169 H Radiography Diagnostic Testing: Radiology Impression Chest CTA 01/07/25 13:24 IMPRESSION: No significant abnormality Reading [facility] Instructions Discharge Activity: Return to [...] Self Care Charges/Coding Visit Charges Inpatient E&M: 77622 Disch Hosp >30min 01/08/25 1420 Cosigner Signature (if applicable): CC: Dr. Jorge Anderson MD; Dr. Rupali Lott DO; Dr. Marielos Perla DO~ Signed [facility]09-22-2025 Hospital Discharge instructionsAdditional Instructions 1. Please notice the changes in your blood pressure medicine with a decrease in your losartan from 25 mg to 12.5 mg and an increase in your metoprolol from 50 mg to 75 mg. I did this to make sure your blood pressure does not drop too low and hopefully help with your heart rate. Date [facility] Dis[facility]: [facility] [facility] Work Phone: 1(922) 141-566009-22-2025 [facility] Medical Records Department [address] [place] [address] Discharge Summary 01/08/25 1357 MR#: [id number] Acct: [id number] Name: CHRISTY FRANCIS Rep #: [id number] : 1950 74 From: Rupali Lott DO PCP: Dr. Marielos Perla DO Status:ADM BRIAN Location: [place] [address] Providers Date of Admission: 01/07/25 Date of [...] who presented to the emergency department at [facility] on 01/07/2025 with a chief complaint of chest pain. She has an extensive cardiac history with previous CABG in 2019 at [facility] as well as PVD, HTN/HPL, [...] twice daily and (more content not included)... [facility]09-22-2025 Progress note [facility] Medical Records Department [address] [place] [address] Progress Note - Cardiology 01/08/25 1250 MR#: [id number] Acct: [id number] Name: CHRISTY FRANCIS Rep #:[id number] : 1950 74 From: Jorge Anderson MD PCP: Dr. Marielos Perla, DO Status:ADM BRIAN Location: [place] [address] Subjective Subjective Patient seen and evaluated. Underwent [...] L 01/07/25 12:32: Lymph % (Auto) Cancelled, [place] % (Auto) 9.1 01/07/25 12:32: [place] % (Auto) Cancelled, Eos % (Auto) 5.2 [...] Drop Cells Cancelled, Ovalocytes Cancelled, Stomatocytes Cancelled, Johnson-Loraine Bodies Cancelled, [place] Cells Cancelled, Bite Cells Cancelled, Crenated Cell [...] (Auto) 68.5, Lymph % (Auto) 13.2 L, [place] % (Auto) 10.8 H, Eos % (Auto) [...] L 01/07/25 12:32: Lymph % (Auto) Cancelled, [place] % (Auto) 9.1 01/07/25 12:32: [place] % (Auto) Cancelled, Eos % (Auto) 5.2 [...] (Auto) 68.5, Lymph % (Auto) 13.2 L, [place] % (Auto) 10.8 H, Eos % (Auto) 6.3 H, Baso % (Auto) 0.7, Absolute Neuts (auto) 7.1, Nucleated RBC % 0 Rhythm: EKG: ECHO: Stress Test: Cardiac Cath: PCI: CT Surgery: Holter monitor: EPS: PPM: CXR: Chest CT Scan: Radiography Diagnostic Testing: Radiology Impression Chest X-Ray 01/07/25 12:40 IMPRESSION: NO ACUTE FINDINGS. Reading Location: [id number] Chest CTA 01/07/25 13:24 IMPRESSION: No significant abnormality Reading Location[facility] Physical Exam Const alert, oriented x3 and [...] Cosigner Signature (if applicable): CC: ~ Signed [facility]09-22-2025 Consult note Author Jorge Anderson [facility] Note Date/Time January 08, 2025 4:48pm [facility] Medical Records Department [address] [place] [address] Consultation - Cardiology 01/08/25 0652 MR#: [id number] Acct: [id number] Name: CHRISTY FRANCIS Rep #:[id number] : 1950 74 From: Jorge Anderson MD PCP: Dr. Marielos Perla, DO Status:DIS BRIAN Location: [place] [address] Assessment & Plan Assessment/Plan (1) Chest pain: [...] to the obtuse marginal branch was occluded. [facility] Medical History Severe left ventricular systolic dysfunction (LVSD) Palpitations Right rotator cuff tear Trigger finger of both hands Carpal tunnel syndrome on both sides FHx: cholecystectomy History of left heart catheterization (LHC) (~06/03/21) Essential hypertension Mechanical loosening of prosthetic knee Atherosclerosis of [place] coronary artery of [place] heart without angina pectoris PAD (peripheral artery [...] L 01/07/25 12:32: Lymph % (Auto) Cancelled, [place] % (Auto) 9.1 01/07/25 12:32: [place] % (Auto) Cancelled, Eos % (Auto) 5.2 [...] Drop Cells Cancelled, Ovalocytes Cancelled, Stomatocytes Cancelled, Johnson-Loraine Bodies Cancelled, Johan Cells Cancelled, Bite Cells [...] (Auto) 68.5, Lymph % (Auto) 13.2 L, [place] % (Auto) 10.8 H, Eos % (Auto) [...] L 01/07/25 12:32: Lymph % (Auto) Cancelled, [place] % (Auto) 9.1 01/07/25 12:32: [place] % (Auto) Cancelled, Eos % (Auto) 5.2 [...] (Auto) 68.5, Lymph % (Auto) 13.2 L, [place] % (Auto) 10.8 H, Eos % (Auto) 6.3 H, Baso % (Auto) 0.7, Absolute Neuts (auto) 7.1, Nucleated RBC % 0 Rhythm: EKG: ECHO: Stress Test: Cardiac Cath: PCI: CT Surgery: Holter monitor: EPS: PPM: CXR: Chest CT Scan: Radiography Diagnostic Testing: Radiology Impression Chest X-Ray 01/07/25 12:40 IMPRESSION: NO ACUTE FINDINGS. Reading Location: [facility] Chest CTA 01/07/25 13:24 IMPRESSION: No significant abnormality Reading Location: [facility] LINK Risk Score for UA/STEMI Assesmment [...] applicable): CC: Dr. Marielos Perla, ~ Signed [facility] Work Phone: 1(370) 799-593409-21-2025 History and physical note Author Maritza [facility] Note Date/Time January 07, 2025 5:21pm [facility] Medical Records Department [address] [place] [address] H&P Exam - Hospitalist 01/07/25 1436 MR#: [id number] Acct: [id number] Name: CHRISTY FRANCIS Rep #:[id number] : 1950 74 From: Maritza Suresh MD PCP: Dr. Marielos Perla, Status:ADM BRIAN Location: [place] [address] HPI - General General Date of Admission: [...] a history of CABG in 2019 at [facility] as well as peripheral artery disease, hyperlipidemia [...] managed for chest pain rule out ACS. [facility] Medical History Severe left ventricular systolic dysfunction (LVSD) Palpitations Right rotator cuff tear Trigger finger of both hands Carpal tunnel syndrome on both sides FHx: cholecystectomy History of left heart catheterization (LHC) (~06/03/21) Essential hypertension Mechanical loosening of prosthetic knee Atherosclerosis of [place] coronary artery of [place] heart without angina pectoris PAD (peripheral artery [...] (Auto) 70.0, Lymph % (Auto) 14.8 L, [place] % (Auto) 9.1, Eos % (Auto) 5.2 [...] 12:40 IMPRESSION: NO ACUTE FINDINGS. Reading Location: [facility] Assessment & Plan Assessment/Plan (1) Chest [...] was all done in presence of her gipgymet-iq-kws Lynda Francis who is a nurse in the hospital. * Patient elects to be full code. * Total aeoo-hm-ryrb time 16 minutes. Charges/Coding Visit Charges Inpatient E&M: 19470 Init Hosp L3 Procedures Hospitalists Procedures: 97973 Advncd Care Plan 30 Min 01/07/25 1721 <Electronically signed by Maritza Suresh MD> Cosigner Signature (if applicable): CC: Dr. Marielos Perla DO; Dr. Maritza Suresh MD~ Signed [facility] Work Phone: 1(178) 869-654309-21-2025 History and physical note [facility] Medical Records Department [address] [place] [address] H&P Exam - Hospitalist 01/07/25 1436 MR#: [id number] Acct: [id number] Name: CHRISTY FRANCIS Rep #:[id number] : 1950 74 From: Maritza Suresh MD PCP: Dr. Marielos Perla DO Status:ADM BRIAN Location: [place] [address] HPI - General General Date of Admission: [...] a history of CABG in 2019 at [facility] as well as peripheral artery disease,hyperlipidemia and [...] managed for chest pain rule out ACS. [facility] Medical History Severe left ventricular systolic dysfunction (LVSD) Palpitations Right rotator cuff tear Trigger finger of both hands Carpal tunnel syndrome on both sides FHx: cholecystectomy History of left heart catheterization (LHC) (~06/03/21) Essential hypertension Mechanical loosening of prosthetic knee Atherosclerosis of [place] coronary artery of [place] heart without angina pectoris PAD (peripheral artery [...] (Auto) 70.0, Lymph % (Auto) 14.8 L, [place] % (Auto) 9.1, Eos % (Auto) 5.2 [...] 12:40 IMPRESSION: NO ACUTE FINDINGS. Reading Location: [facility] Assessment & Plan Assessment/Plan (1) Chest [...] was all done in presence of her yzpyeltf-sa-oor Lynda Francis who is a nurse in the hospital. * Patient elects to be full code. * Total sbcr-dl-cyiy time 16 minutes. Charges/Coding Visit Charges Inpatient E&M: 00447 Init Hosp L3 Procedures Hospitalists Procedures: 26254 Advncd Care Plan 30 Min 01/07/25 1721 Cosigner Signature (if applicable): CC: Dr. Marielos Perla DO; Dr. Maritza Suresh MD~ Signed [facility]09-21-2025 Discharge summary Author Elena Bill [facility] Note Date/Time January 07, 2025 2:51pm [facility] Medical Records Department [address] [place] [address] Emergency Department Summary 01/07/25 MR#: [id number] Acct: [id number] Name: CHRISTY FRANCIS Rep #:[id number] : 1950 74 From: Elena Bill MD PCP: Dr. Marielos Perla DO Status:REG ER Location: ED HPI History of Present Illness Chief Complaint: Chest Pain Narrative Narrative: Patient is a 74-year-old female presenting to the emergency department for chestpain that started around 9 AM this morning. Patient has a past medical history of a CABG in 2019 at [facility], palpitations, hypertension, hyperlipidemia, type 2 [...] baby aspirin this morning prior to coming. [facility] Medical History Severe left ventricular systolic dysfunction (LVSD) Palpitations Right rotator cuff tear Trigger finger of both hands Carpal tunnel syndrome on both sides FHx: cholecystectomy History of left heart catheterization (LHC) (~06/03/21) Essential hypertension Mechanical loosening of prosthetic knee Atherosclerosis of [place] coronary artery of [place] heart without angina pectoris PAD (peripheral artery [...] (Auto) 70.0 Lymph % (Auto) 14.8 L [place] % (Auto) 9.1 Eos % (Auto) 5.2 [...] 12:40 IMPRESSION: NO ACUTE FINDINGS. Reading Location: [id number] Chest CTA 01/07/25 13:24 IMPRESSION: No significant abnormality Reading Location[facility] Discharge Plan Triage Chief Complaint: Chest [...] [Primary Care Provider, Family Practice] Print Language: Swazi What to do if you have Problems For any increased pain, shortness of breath, bleeding, nausea or vomiting, chestpain, or any unexpected problems, contact your Primary Care Provider. Call [facility] ([phone]) or report to the closest Emergency Room. Call 911 if necessary. 01/07/25 1451 <Electronically signed by Elena Bill MD> Cosigner Signature (if applicable): CC: Dr. Marielos Perla DO ~ Signed [facility] Work Phone: 1(269) 253-564909-21-2025 Discharge summary [facility] Medical Records Department [address] [place] [address] Emergency Department Summary 01/07/25 MR#: [id number] Acct: [id number] Name: CHRISTY FRANCIS Rep #:[id number] : 1950 74 From: Elena Bill MD PCP: Dr. Marielos Perla DO Status:REG ER Location: ED HPI History of Present Illness Chief Complaint: Chest Pain Narrative Narrative: Patient is a 74-year-old female presenting to the emergency department for chestpain that started around 9 AM this morning. Patient has a past medical history of a CABG in 2019 at [facility], palpitations, hypertension, hyperlipidemia, type 2 [...] baby aspirin this morning prior to coming. [facility] Medical History Severe left ventricular systolic dysfunction (LVSD) Palpitations Right rotator cuff tear Trigger finger of both hands Carpal tunnel syndrome on both sides FHx: cholecystectomy History of left heart catheterization (LHC) (~06/03/21) Essential hypertension Mechanical loosening of prosthetic knee Atherosclerosis of [place] coronary artery of [place] heart without angina pectoris PAD (peripheral artery [...] (Auto) 70.0 Lymph % (Auto) 14.8 L [place] % (Auto) 9.1 Eos % (Auto) 5.2 [...] 12:40 IMPRESSION: NO ACUTE FINDINGS. Reading Location: [id number] Chest CTA 01/07/25 13:24 IMPRESSION: No significant abnormality Reading Location: [facility] Discharge Plan Triage Chief Complaint: Chest Pain [...] [Primary Care Provider, Family Practice] Print Language: Swazi What to do if you have Problems For any increased pain, shortness of breath, bleeding, nausea or vomiting, chestpain, or any unexpected problems, contact your Primary Care Provider. Call [facility] ([phone]) or report tothe closest Emergency Room. Call 911 if necessary. 01/07/25 1451 Cosigner Signature (if applicable): CC: Dr. Marielos Pelra DO ~ Signed [facility]09-21-2025 Radiology Diagnostic study note [facility] Imaging Services [address] [place], [place] [address] CTA Chest W/WO Contrast MR#: [id number] Acct: [id number] Name: CHRISTY FRANCIS Rep #: [id number] : 1950 F 74 From: Michael Ignacio MD PCP: Dr. Marielos Perla DO Status: REG ER Study:CTA Chest W/WO Contrast Date of Exam: 01/07/25 Exam# [id number] Ordering Dr: Tomasz Bill MD PROCEDURE: CTA [...] Contrast IMPRESSION: No significant abnormality Reading Location: [facility] CC: Dr. Elena Bill MD; Dr. Marielos Perla DO ~ Treasury Accountant: Signed [facility]09-21-2025 Radiology Diagnostic study note [facility] Imaging Services [address] [place], [place] [id number] Chest PA and Lateral MR#: [id number] Acct: [id number] Name: CHRISTY FRANCIS Rep #: [id number] : 1950 74 From: Suhail Haines MD PCP: Dr. Marielos Perla DO Status: REG ER Study:Chest PA and Lateral Date of Exam: 01/07/25 Exam# [id number] Ordering Dr: Tomasz Bill MD PROCEDURE: CHEST [...] Lateral IMPRESSION: NO ACUTE FINDINGS. Reading Location: [facility] CC: Dr. Elena Bill MD; Dr. Marielos Perla DO ~ Treasury Accountant: Signed [facility]09-06-2025 Radiology Diagnostic study note [facility] Imaging Services [address] [place], [place] [id number] Lumbar Spine 2 or 3 Views MR#: [id number] Acct: [id number] Name: CHRISTY FRANCIS Rep #: [id number] : 1950 F 74 From: Pamela Bullock MD PCP: Dr. Marielos Perla DO Status: REG CLI Study:Lumbar Spine 2 or 3 Views Date of Exam: 12/22/24 Exam# [id number] Ordering Dr: Rio Young ison PA EXAM: [...] changes lumbar spine as described. Reading Location: [id number] CC: SKYLER Watson; Dr. Marielos Perla DO ~ Treasury Accountant: Signed [facility]08-13-2025 Radiology Diagnostic study note [facility] Imaging Services [address] [place], [place] [address] Pelvic w/ Transvaginal MR#: [id number] Acct: [id number] Name: CHRISTY FRANCIS Rep #: [id number] : 1950 F 74 From: Randy Reese MD PCP: Dr. Marielos Perla DO Status: REG CLI Study:Pelvic w/ Transvaginal Date of Exam: 11/29/24 Exam# [id number] Ordering Dr: Tresa Perla sa, DO PROCEDURE: [...] Endometrial thickening. Clinical correlation recommended. Reading Location: [id number] CC: Dr. Marielos Perla, DO ~ Treasury Accountant: Signed [facility]07-17-2025 Evaluation note* Diagnosis Onset Date Resolution Status Admit Date Severe left ventricular systolic dysfunction (LVSD) acute November 02, 2024 10:11am Essential hypertension chronic ly 2024 10:11am History of coronary artery bypass graft x February, chronic November 02, 2024 10:11am HLD (hyperlipidemia) chronic November 02, 2024 10:11am PAD (peripheral artery disease) chronic November 02, 2024 10:11am [facility] Work Phone: 1(305) 978-489407-17-2025 Evaluation note* Diagnosis Onset Date Resolution Status [...] (peripheral artery disease) chronic December 12 10:37am [facility] Work Phone: 1(476) 623-442507-17-2025 Evaluation note* Diagnosis Onset Date Resolution Status [...] 3:00pm Thickened endometrium acute Sep 2024 10:45am [facility] Work Phone: 1(477) 670-684207-17-2025 Evaluation note* Diagnosis Onset Date Resolution Status [...] ventricular hypertrophy acute 2025 8:50am Atherosclerosis of [place] coronary artery of [place] heart without angina chronic January 8:50am [facility] Work Phone: 1(945) 537-924306-02-2025 Radiology Diagnostic study note [facility] Imaging Services [address], [place] [address] L/S Spine Min 4 Views MR#: [id number] Acct: [id number] Name: CHRISTY FRANCIS Rep #: [id number] : 1950 F 74 From: Adrianna Serrano MD PCP: Dr. Marielos Perla DO Status: REG CLI Study:L/S Spine Min 4 Views Date of Exam: 09/18/24 Exam# [id number] Ordering Dr: Ra javier Mckeon SECURITY SHIFT SUPERVISOR-C PROCEDURE: L/S SPINE MIN 4 VIEWS 09/18/2024 REASON FOR EXAM: PAIN, SCIATICA TECHNIQUE: Four views of the lumbar spine COMPARISON: None FINDINGS: There are 5 sby-jaz-rpqykdy lumbar-type vertebral bodies. The pars are not [...] is likely degenerative. Reading Location: [facility] CC: SECURITY SHIFT SUPERVISOR-C Rand Mckeon; Dr. Marielos Perla DO ~ Treasury Accountant: Signed [facility]02-17-2025 Evaluation note* Diagnosis Onset Date Resolution Status Admit Date Essential hypertension chronic Fe bruary 2024 10:41am History of coronary artery bypass graft x 3 February, chronic June 05, 2024 10:41am HLD (hyperlipidemia) chronic Febr uary 2024 10:41am PAD (peripheral artery disease) chronic June 05, 2 025 10:41am Shortness of breath chronic Febru kristine 2024 10:41am [facility] Work Phone: 1(674) 334-848311-01-2019 Evaluation note* Diagnosis Onset Date Resolution Status Chest pain acute Essential hypertension acute History of coronary artery bypass graft x February, acute HLD (hyperlipidemia) chronic PAD (peripheral artery disease) chronic [facility] Work Phone: 1([phone]) 829-990411-01-2019 Evaluation note* Diagnosis Onset Date Resolution Status Chest pain acute Essential hypertension acute History of coronary artery bypass graft x February, acute HLD (hyperlipidemia) chronic PAD (peripheral artery disease) chronic Essential hypertension acute History of coronary artery bypass graft x February, acute Palpitations acute HLD (hyperlipidemia) chronic PAD (peripheral artery disease) chronic [facility] Work Phone: 1(995) 427-202211-01-2019 Evaluation note* Diagnosis Onset Date Resolution Status Admit Date Severe left ventricular systolic dysfunction (LVSD) acute November 02, 2024 10:11am Essential hypertension chronic Ju ly 2024 10:11am History of coronary artery bypass graft x February, chronic November 02, 2024 10:11am HLD (hyperlipidemia) chronic November 02, 2024 10:11am PAD (peripheral artery disease) chronic November 02, 2024 10:11am [facility] [employer] Work Phone: Consult note Author Jorge Anderson [facility] Note Date/Time January 08, 2025 4:48pm [facility] Medical Records Department [address] [place] [address] Consultation - Cardiology 01/08/25 0652 MR#: [id number] Acct: [id number] Name: CHRISTY FRANCIS Rep #:[id number] : 1950 74 From: Jorge Anderson MD PCP: Dr. Marielos Perla, DO Status:DIS BRIAN Location: [place] [address] Assessment & Plan Assessment/Plan (1) Chest pain: [...] to the obtuse marginal branch was occluded. [facility] Medical History Severe left ventricular systolic dysfunction (LVSD) Palpitations Right rotator cuff tear Trigger finger of both hands Carpal tunnel syndrome on both sides FHx: cholecystectomy History of left heart catheterization (LHC) (~06/03/21) Essential hypertension Mechanical loosening of prosthetic knee Atherosclerosis of [place] coronary artery of [place] heart without angina pectoris PAD (peripheral artery [...] L 01/07/25 12:32: Lymph % (Auto) Cancelled, [place] % (Auto) 9.1 01/07/25 12:32: [place] % (Auto) Cancelled, Eos % (Auto) 5.2 [...] Cancelled, Toxic Vacuolation Cancelled, Dohle Bodies Cancelled, Iastu Rods Cancelled, Platelet Estimate Cancelled, Plt Morphology Comment Cancelled, RBC Morphology Cancelled 01/07/25 12:32: RBC Morphology Cancelled, Polychromasia Cancelled, HypochromasiaCancelled, Basophilic Stippling Cancelled, Anisocytosis Cancelled, Microcytosis Cancelled, Macrocytosis Cancelled, Spherocytes Cancelled, Sickle Cells Cancelled, Target Cells Cancelled, Tear Drop Cells Cancelled, Ovalocytes Cancelled, Stomatocytes Cancelled, Johnson-Loraine Bodies Cancelled, Johan Cells Cancelled, Bite Cells [...] (Auto) 68.5, Lymph % (Auto) 13.2 L, [place] % (Auto) 10.8 H, Eos % (Auto) [...] L 01/07/25 12:32: Lymph % (Auto) Cancelled, [place] % (Auto) 9.1 01/07/25 12:32: [place] % (Auto) Cancelled, Eos % (Auto) 5.2 [...] (Auto) 68.5, Lymph % (Auto) 13.2 L, [place] % (Auto) 10.8 H, Eos % (Auto) 6.3 H, Baso % (Auto) 0.7, Absolute Neuts (auto) 7.1, Nucleated RBC % 0 Rhythm: EKG: ECHO: Stress Test: Cardiac Cath: PCI: CT Surgery: Holter monitor: EPS: PPM: CXR: Chest CT Scan: Radiography Diagnostic Testing: Radiology Impression Chest X-Ray 01/07/25 12:40 IMPRESSION: NO ACUTE FINDINGS. Reading Location: [facility] Chest CTA 01/07/25 13:24 IMPRESSION: No significant abnormality Reading Location: [facility] Risk Score for UA/STEMI Assesmment [...] applicable): CC: Dr. Marielos Perla, ~ Signed [facility] Work Phone: Consult note Author Cecy Cheatham [facility] Note Date/Time January 08, 2025 3:16pm [facility] Medical Records Department [address] [place] [address] Counseling Note - Pharmacy 01/08/25 1655 MR#: [id number] Acct: [id number] Name: CHRISTY FRANCIS Rep #:[id number] : 1950 74 From: Cecy Cheatham PCP: Dr. Marielos Perla DO Status:ADM BRIAN Y Location: [place] [id number] Med Rec Counseling Pharmacy Service [...] Signature (if applicable): Date CC: ~ Signed [facility] Work Phone: Discharge summary Author Rupali Lott [facility] Note Date/Time January 08, 2025 2:20pm [facility] Medical Records Department [address] [facility] [place] [address] Discharge Summary 01/08/25 1357 MR#: [id number] Acct: [id number] Name: CHRISTY FRANCIS Rep #:[id number] : 1950 74 From: Rupali Lott DO PCP: Dr. Marielos Perla DO Status:ADM BRIAN Location: [place] [address] Providers Date of Admission: 01/07/25 Date of [...] who presented to the emergency department at [facility] on 01/07/2025 with a chief complaint of chest pain. She has an extensive cardiac history with previous CABG in 2019 at [facility] as well as PVD, HTN/HPL, [...] % (Auto) Cancelled, Lymph % (Auto) Cancelled, [place] % (Auto) Cancelled, Eos % (Auto) Cancelled, [...] Drop Cells Cancelled, Ovalocytes Cancelled, Stomatocytes Cancelled, Johnson-Loraine Bodies Cancelled, Johan Cells Cancelled, Bite Cells [...] (Auto) 68.5, Lymph % (Auto) 13.2 L, [place] % (Auto) 10.8 H, Eos % (Auto) 6.3 H, Baso % (Auto) 0.7, Absolute Neuts (auto) 7.1, Absolute Lymphs (auto) 1.37, Nucleated RBC % 0 01/08/25 06:41: POC Glucose 189 H 01/08/25 11:17: POC Glucose 169 H Radiography Diagnostic Testing: Radiology Impression Chest CTA 01/07/25 13:24 IMPRESSION: No significant abnormality Reading Location[facility] D/C Instructions Discharge Activity: Return to [...] Self Care Charges/Coding Visit Charges Inpatient E&M: 71072 Disch Hosp >30min 01/08/25 1420 <Electronically signed by Rupali Lott DO> Cosigner Signature (if applicable): CC: Dr. Jorge Anderson MD; Dr. Rupali Lott DO; Dr. Marielos Perla DO~ Signed [facility] Work Phone: Evaluation noteNo assessment information available [facility] Work Phone: Evaluation note* Diagnosis Onset Date Resolution Status Right rotator cuff tear acut e [facility] Work Phone: History and physical note Author Maritza Suresh [facility] Note Date/Time January 07, 2025 5:21pm [facility] Medical Records Department [address] [place] [address] H&P Exam - Hospitalist 01/07/25 1436 MR#: [id number] Acct: [id number] Name: CHRISTY FRANCIS Rep #:[id number] : 1950 74 From: Maritza Suresh MD PCP: Dr. Marielos Perla, DO Status:ADM BRIAN Location: [place] [address] HPI - General General Date of Admission: [...] a history of CABG in 2019 at [facility] as well as peripheral artery disease, hyperlipidemia and type 2 diabetes mellitus. She also [facility] several weeks prior to admission. [...] managed for chest pain rule out ACS. [facility] Medical History Severe left ventricular systolic dysfunction (LVSD) Palpitations Right rotator cuff tear Trigger finger of both hands Carpal tunnel syndrome on both sides FHx: cholecystectomy History of left heart catheterization (LHC) (~06/03/21) Essential hypertension Mechanical loosening of prosthetic knee Atherosclerosis of [place] coronary artery of [place] heart without angina pectoris PAD (peripheral artery [...] (Auto) 70.0, Lymph % (Auto) 14.8 L, [place] % (Auto) 9.1, Eos % (Auto) 5.2 [...] 12:40 IMPRESSION: NO ACUTE FINDINGS. Reading Location: [facility] Assessment & Plan Assessment/Plan (1) Chest [...] was all done in presence of her rrboaipg-uq-tft Lynda Francis who is a nurse in the hospital. * Patient elects to be full code. * Total uybh-ng-nutw time 16 minutes. Charges/Coding Visit Charges Inpatient E&M: 74026 Init Hosp L3 Procedures Hospitalists Procedures: 30499 Advncd Care Plan 30 Min 01/07/25 1721 <Electronically signed by Maritza Suresh MD> Cosigner Signature (if applicable): CC: Dr. Marielos Perla DO; Dr. Maritza Suresh MD~ Signed [facility] Work Phone: Hospital Discharge instructions Additional Instructions X-rays of your shoulder knee showed no broken bones. Rest, ice, and use the Percocet as needed. After that you can take Tylenol or Motrin. If symptoms are not improving in 1 week please see your primary care doctor for reevaluation.[facility] Work Phone: Hospital Discharge instructionsAdditional Instructions [...] with your heart rate. Date [facility]: [facility] Work Phone: Progress note Author Jorge Anderson [facility] Note Date/Time January 08, 2025 12:53pm [facility] Medical Records Department [address] [place] [address] Progress Note - Cardiology 01/08/25 1250 MR#: [id number] Acct: [id number] Name: CHRISTY FRANCIS Rep #:[id number] : 1950 74 From: Jorge Anderson MD PCP: Dr. Marielos Perla, DO Status:ADM BRIAN Location: [place] [address] Subjective Subjective Patient seen and evaluated. Underwent [...] L 01/07/25 12:32: Lymph % (Auto) Cancelled, [place] % (Auto) 9.1 01/07/25 12:32: [place] % (Auto) Cancelled, Eos % (Auto) 5.2 [...] Drop Cells Cancelled, Ovalocytes Cancelled, Stomatocytes Cancelled, Johnson-Loraine Bodies Cancelled, [place] Cells Cancelled, Bite Cells Cancelled, Crenated Cell [...] (Auto) 68.5, Lymph % (Auto) 13.2 L, [place] % (Auto) 10.8 H, Eos % (Auto) [...] L 01/07/25 12:32: Lymph % (Auto) Cancelled, [place] % (Auto) 9.1 01/07/25 12:32: [place] % (Auto) Cancelled, Eos % (Auto) 5.2 [...] (Auto) 68.5, Lymph % (Auto) 13.2 L, [place] % (Auto) 10.8 H, Eos % (Auto) 6.3 H, Baso % (Auto) 0.7, Absolute Neuts (auto) 7.1, Nucleated RBC % 0 Rhythm: EKG: ECHO: Stress Test: Cardiac Cath: PCI: CT Surgery: Holter monitor: EPS: PPM: CXR: Chest CT Scan: Radiography Diagnostic Testing: Radiology Impression Chest X-Ray 01/07/25 12:40 IMPRESSION: NO ACUTE FINDINGS. Reading Location: [facility] Chest CTA 01/07/25 13:24 IMPRESSION: No significant abnormality Reading Location: [facility] Physical Exam Const alert, oriented x3 [...] Cosigner Signature (if applicable): CC: ~ Signed [facility] Work Phone: Progress note Author Lamar Olivera [facility] Note Date/Time January 10, 2025 11:16am [facility] [address], [address] [place] [address] OFFICE VISIT Date of Service: 01/10/25 MR#: [id number] Acct: [id number] Name: CHRISTY FRANCIS Rep #: [id number] : 1950 Provider: JOHNATHON Olivera Age/Sex: 74/F Location: [facility] Status: Signed Intake Vital Signs 11/02/24 10:17 01/07/25 16:04 01/10/25 10:46 Height 5 ft 2 in 5 ft 2 in 5 ft 2 in Weight: 167 lb BMI 30.5 BP 125/74 H Blood Pressure Location Rt brachial Position Sitting Pulse 98 Pulse Source Monitor Intake Visit Reasons: EMB (CLAIRE) Marine Equipment Preservation Inspector Required: No Accompanied by: Self Is patient [...] Mechanical loosening of prosthetic knee Atherosclerosis of [place] coronary artery of [place] heart without angina pectoris PAD (peripheral artery disease) HLD (hyperlipidemia) Type II diabetes mellitus Surgical History History of cholecystectomy History of coronary artery bypass graft x 3 (~02/27/19) History of prosthetic unicompartmental arthroplasty of left knee Family History Mother Heart disease Social History (Updated 01/10/25 @ 10:53 by Kaylen Medrano) current occupational status: retired current occupation: Retired. [employer]. Smoking Status: Light Smoker (<10/day) alcohol intake: [...] Bth Weight [facility] FOB 09[birth year] Germán 10[birth year] [facility] EMB (MERTZON) Details: CHRISTY FRANCIS is a 74 year [...] Thickened endometrium R93.89 CPT Codes Endometrial Biopsy (31706) Assessment and Plan Assessment and Plan (1) Thickened endometrium: Status: Acute Comment: 6.6mm. no vag bleeding. EMB pending Orders: Orders Endometrial Biopsy Today SCRN MAMM (CAD)W/LAVON BILAT Today Plan Reviewed S&S infection Call pathology If normal than can just monitor Mammogram ordered 01/10/25 1116 <Electronically signed by Lamar juárez SECURITY SHIFT SUPERVISOR SECURITY SHIFT SUPERVISOR-C> Date _ Lamar Olivera SECURITY SHIFT SUPERVISOR SECURITY SHIFT SUPERVISOR-C Cosigner Signature: Date (if applicable) CC: Dr. Marielos Perla, DO ~ [facility] Work Phone: Progress note Author Akin Jauregui [facility] Note Date/Time 2025 9 :51am [facility] [place] [facility] [address] [place] [address] OFFICE VISIT Date of Service: 01/30/25 MR#: [id number] Acct: [id number] Name: CHRISTY FRANCIS Rep #: [id number] : 1950 Provider: SKYLER Pritchett Age/Sex: 75/F Location: [facility] Status: Signed HPI HPI History of Present Illness Details: Christy Francis is a 75-year-old female who presents to office today for hospital follow-up. She has a history of coronary artery disease status post CABG receiving FOLEY to her LAD, SVG to the OM 2 and SVG to RCA/PDA in February 2019 at [facility], ischemic mediated cardiomyopathy, hyperlipidemia, hypertension and peripheral arterial occlusive disease following with vascular surgery, Dr. Torres. 01/07/2025 she presented to [facility] ED with complaints of chest pain. [...] Method room air Intake Visit Reasons: S/P [facility] 01/08 Marine Equipment Preservation Inspector Required: No Accompanied by: Self Is patient [...] Mechanical loosening of prosthetic knee Atherosclerosis of [place] coronary artery of [place] heart without angina pectoris PAD (peripheral artery disease) HLD (hyperlipidemia) Type II diabetes mellitus Surgical History History of cholecystectomy History of coronary artery bypass graft x 3 (~02/27/19) History of prosthetic unicompartmental arthroplasty of left knee Family History Mother Heart disease Social History current occupational status: retired current occupation: Retired. [employer]. Smoking Status: Light Smoker (<10/day) alcohol intake: [...] Plan Assessment and Plan (1) Atherosclerosis of [place] coronary artery of [place] heart without angina pectoris: Status: Chronic Comment: CABG x3 with FOLEY to LAD, SVG to OM 2, and SVG to PDA of RCA on 02/27/[address] Taylor at [facility]; Plan: Catheterization from 01/08/2025 shows stable coronary [...] 01/30/25 I25.10 - Atherosclerotic heart disease of [place] coronary artery without angina pectoris Liver Profile 01/30/25 I25.10 - Atherosclerotic heart disease of [place] coronary artery without angina pectoris Medications: Refilled [...] Code Off vis,est,level 4 Diagnoses Atherosclerosis of [place] coronary artery of [place] heart without angina pectoris I25.10 Cardiomyopathy I42.9 Left ventricular hypertrophy I51.7 Coding Level of Care Code Off vis,est,level 4 Diagnoses Atherosclerosis of [place] coronary artery of [place] heart without angina pectoris I25.10 Cardiomyopathy I42.9 Left ventricular hypertrophy I51.7 Clinical Quality Measures Falls Risk Screening/Assistive Devices Have you fallen in the past year?: No Cardiac Ejection fraction %: 60 02/03/25 0757 <Electronically signed by Akin HOLLAND> Date _ Akin HOLLAND 02/03/25 0808<Electronically signed by Jorge Anderson MD> Cosigner Signature: Date (if applicable) Jorge Anderson MD CC: Dr. Marielos Perla, DO ~ [facility] Work Phone: Reason for referral (narrative)No reason for referral information [facility] Work Phone: Discharge Instructions * Discharge Instr - Lab* Yamilet Nogueira, RN - 03/02/2019 3:13 PM EST Your physician has ordered skilled home care services for you. Your home care will be provided by: [facility] [phone] * Additional Instructions* Lukas Moise, SAMPLE SAWYER - BOOK BINDER - 03/03/2019 When to call the surgeon: If any symptoms concern you, call us: -Dr. Taylor/Dr. Medina's office -Phone number [phone] Notify us if the following occur: [...] Everywhere. * Coronary Artery Bypass Graft: Post-op (Swazi) documented in this encounter History of Present [...] medications would be and if reasonable with [facility] if not then will [...] Date 03/03/19 0000 - 03/03/19 2359 Shift 9789-2678 9409-0411 8564-7273 24 Hour Total INTAKE P.O. 120 120 [...] gms)/meal Problem List: Principal Problem: CAD in [place] artery Active Problems: S/P CABG x 3 [...] 3:28 PM EST Physical Therapy Facility/Department: [facility] Daily Treatment [...] of Arthritis, Blood circulation, collateral, CAD in [place] artery, Diabetes mellitus (HCC), HFrEF (heart failure with reduced ejection fraction) ([facility]), and Hypertension. has a past surgical history [...] 27 Minutes(FAx1, GA x1 ) DIEGO Gutierres, MOLD PRESS OPERATOR * Oren Adams MD - 03/02/2019 [...] []Injected [x]Non-Injected / Pinnae []Normal []Other/ Dentitian [][place] Teeth []Dentures Oral Mucosa [][place] [x]Moist []Dry/ Oral ETT []Present [x]Absent Neck: [...] [x]Absent/ [place] ([]RUE []RLE []LUE []LLE) Neurologic: WALES []Yes [x]No Corneal reflexes []Present []Absent / [...] ABG: Recent Labs 02/27/19 1545 PHART 7.274* [id number] 46.0* PO2ART 270.6* [id number] 98.8 CBC: Recent Labs 03/01/19 0015 03/02/19 [...] Portable Ordering Physician GRANT TAYLOR Accession Number [id number] CPT4 Codes 06865 () Reason For Exam sob Report CLINICAL INFORMATION: Shortness of breath. Status post open heart surgery. CHEST X-RAY, PORTABLE, 0537 hours: An AP portable view is compared to the prior examination of previous day. There is no change in the mediastinal or left lower hemithorax chest tubes or right internal jugular [place] introducer sheath. There is stable slightly limited [...] avoid intravascular fluid depletion Case discussed with SECURITY SHIFT SUPERVISOR from CTS, (Minoo) Critical care will sign [...] minutes so far today. * Minoo Encinas, SAMPLE SAWYER - HYDRAULIC CORRUGATING MACHINE OPERATOR - 03/02/2019 4:05 AM EST Cardiothoracic [...] will hold off for now. EF: 45% [facility]; intraop DONNELL pending-02/27 POD # 3 [...] with home health [facility] home when medically stable [x] Home [...] balance;Decreased ADL status;Decreased strength;Decreased endurance Assessment: OT sliva completed. 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 Goals and/or treatment plan was established in collaboration with patient/family/other representatives. Heather Zhang OTR/L * Jos Baker, MOLD PRESS OPERATOR - 03/01/2019 1:48 PM EST Physical Therapy Facility/Department: [facility] Daily Treatment [...] of Arthritis, Blood circulation, collateral, CAD in [place] artery, Diabetes mellitus (HCC), HFrEF (heart failure with reduced ejection fraction) ([facility]), and Hypertension. has a past surgical history [...] [facility] [address] [place] [address] Dept: [phone] Loc: [phone] Visit Date: 03/01/2019 HPI: Christy Francis is [...] Date Arthritis Blood circulation, collateral CAD in [place] artery 02/22/2019 Diabetes mellitus (HCC) HFrEF (heart [...] mg Oral BID Lukas Moise, DIANA - BOOK BINDER 25 mg at 856 pantoprazole (PROTONIX) tablet 40 mg 40 mg Oral QAM AC Apr MoiseDIANA - BOOK BINDER 40 mg at 03/01/19 0709 FLUoxetine (PROZAC) capsule 20 mg 20 mg Oral Daily Apr MoiseDIANA BOOK BINDER 20 mg at 03/01/19 0856 0.45 % [...] Assessment: Type 2 DM with hyperglycemia with group home insulin use s/p cabg 02/27 Will likely [...] []Injected [x]Non-Injected / Pinnae []Normal []Other/ Dentitian [][place] Teeth []Dentures Oral Mucosa [][place] [x]Moist []Dry/ Oral ETT []Present [x]Absent Neck: [...] [x]Absent/ [place] ([]RUE []RLE []LUE []LLE) Neurologic: WALES []Yes [x]No Corneal reflexes []Present []Absent / [...] ABG: Recent Labs 02/27/19 1545 PHART 7.274* [id number] 46.0* PO2ART 270.6* [id number] 98.8 CBC: Recent Labs 02/28/19 0404 03/01/19 [...] Portable Ordering Physician GRANT TAYLOR Accession Number [id number] CPT4 Codes 53482 () Reason For Exam sob Report CLINICAL INFORMATION: Shortness of breath. Status post open heart surgery. CHEST X-RAY, PORTABLE, 0537 hours: An AP portable view is compared to the prior examination of previous day. There is no change in the mediastinal or left lower hemithorax chest tubes or right internal jugular [place] introducer sheath. There is stable slightly limited [...] minutes so far today. * Minoo Encinas, SAMPLE SAWYER - HYDRAULIC CORRUGATING MACHINE OPERATOR - 03/01/2019 4:54 AM EST Cardiothoracic [...] I/O: Date 03/01/19 - 03/01/19 2359 Shift 7631-1533 5064-2538 4413-7458 24 Hour Total INTAKE Shift Total(mL/kg) OUTPUT [...] this morning may increase BB. EF: 45% [facility]; intraop DONNELL pending-02/27 POD # 2 [...] with home health [facility] medically stable [x] Home [...] mg Oral Daily Active Problems: CAD in [place] artery Diabetes mellitus (HCC) Hypertension HFrEF (heart failure with reduced ejection fraction) ([facility]) Resolved Problems: * No resolved hospital problems. [...] SR-ST 90-120s DONNELL: In process Last Echo: [facility] LVEF 45%. Mild MAC with mild MR Last stress test: [facility] NST Stress Induced Ischemia involving portions of [...] left. 8. Dispo - Pt lives in [place] and states she intends to follow up [...] up weekly Nutrition Assessment: Pt presents from [place] for evaluation for PCI vs CABG after presenting to [place] ED with chest pressure and having abnormal [...] High Nutrient Needs: Estimated Daily Total Kcal: 0032-9443 Estimated Daily Protein (g): 48-57 Estimated Daily [...] Asaf=19. Chest tubex3. Labs noted: ^BUN-25, ^potassium-7.0-->6.7, [id number], HgA1C on 02/25-10.3% Wound Type: Surgical Wound [...] confirm weight change, will continue to monitor [place] Body Wt: 105 lb (47.6 kg), % [place] Body 168% BMI Classification: BMI 30.0 - [...] 12:03 PM EST Physical Therapy Facility/Department: [facility] Initial Assessment NAME: Christy Francis : 1950 Date of Service: 02/28/2019 Discharge Recommendations: Home independently Assessment Body structures, Functions, Activity limitations: Decreased strength;Decreased endurance;Decreased functional mobility ;Decreased safe awareness;Decreased balance Assessment: Pt admitted for Pod#1 CABG x 3. Pt MOLD PRESS OPERATOR was living alone independently. Pt this [...] of Arthritis, Blood circulation, collateral, CAD in [place] artery, Diabetes mellitus (HCC), HFrEF (heart failure with reduced ejection fraction) ([facility]), and Hypertension. 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 Goals and/or treatment plan was established in collaboration with patient/family/other (specify). Mil Reddy, PT * Liz Diaz, SAMPLE SAWYER - HYDRAULIC CORRUGATING MACHINE OPERATOR - 02/28/2019 11:20 AM EST ENDOCRINOLOGY PROGRESS NOTE Patient: Christy Francis Unit/Bed:[id number]/[id number] Date of : 1950 Admit date: 02/22/2019 [...] Assessment: Type 2 DM with hyperglycemia with group home insulin use Lab Results Component Value Date LABA1C 10.3 (H) 02/25/2019 Multivessel CAD with Angina - [facility] on 02/22 concerning for multivessel disease - S/p CABG yesterday Plan: As outpatient prior to this admission: Corporate Securities Research Analyst: None Diabetes Medications/regimen: Metformin 500 mg daily [...] []Injected [x]Non-Injected Pinnae [x]Normal []Other Oral Mucosa [x][place] [x]Moist []Dry Oral ETT []Present [x]Absent Neck: [...] [x]Absent [place] ([x]RUE [x]RLE [x]LUE [x]LLE) Neurologic: WALES []Yes [x]No Corneal reflexes []Present []Absent Plantar [...] prophylaxis Patient Active Problem List: CAD in [place] artery Diabetes mellitus ([facility]) Hypertension HFrEF (heart failure with reduced ejection fraction) ([facility]) CHANTELL ÁLVAREZ MD * Lukas Moise APRN [...] Date 02/28/19 0000 - 02/28/19 2359 Shift 0378-7698 1435-9345 5292-6331 24 Hour Total INTAKE I.V.(mL/kg/hr) 2220(3.5) 2220 [...] LIQUID; Problem List: Active Problems: CAD in [place] artery Diabetes mellitus (HCC) Hypertension HFrEF (heart failure with reduced ejection fraction) ([facility]) Resolved Problems: * No resolved hospital problems. [...] EST Hospitalist Progress Note 02/27/2019 10:49 AM [phone]: Please page me for patient care issues. [phone]: Please page [facility] night Hospitalist for any issues. [...] of Hospitalist Medicine Inpatient Medical Services PAGER: [phone] * Sixto Salamanca MD - 02/26/2019 1:31 [...] Assessment: Type 2 DM with hyperglycemia with group home insulin use Lab Results Component Value Date LABA1C 10.3 (H) 02/25/2019 Multivessel CAD with Angina - [facility] on 02/22 concerning for multivessel disease - Planning for possible CABG on Wednesday Plan: As outpatient prior to this admission: Corporate Securities Research Analyst: None Diabetes Medications/regimen: Metformin 500 mg daily [...] 2-4 weeks after discharge * Ronda Carmona, SAMPLE SAWYER - BOOK BINDER - 02/26/2019 11:23 AM EST Cardiothoracic Surgery Progress Note 02/26/2019 Subjective: Admit Date: 02/22/2019 Interval History: Transferred from [place](see consult note) Multivessel CAD plan for CABG [...] Date 02/26/19 0000 - 02/26/19 2359 Shift 0074-7411 1780-3411 5904-7079 24 Hour Total INTAKE P.O. 240 240 [...] Specified Problem List: Active Problems: CAD in [place] artery Diabetes mellitus (HCC) Hypertension HFrEF (heart failure with reduced ejection fraction) ([facility]) Resolved Problems: * No resolved hospital problems. [...] Assessment: Type 2 DM with hyperglycemia with group home insulin use Lab Results Component Value Date LABA1C 10.3 (H) 02/25/2019 Multivessel CAD with Angina - [facility] on 02/22 concerning for multivessel disease - Planning for possible CABG on Wednesday Plan: As outpatient prior to this admission: Corporate Securities Research Analyst: None Diabetes Medications/regimen: Metformin 500 mg daily [...] 2-4 weeks after discharge * Ronda Carmona, SAMPLE SAWYER - BOOK BINDER - 02/25/2019 10:52 AM EST Cardiothoracic Surgery Progress Note 02/25/2019 Subjective: Admit Date: 02/22/2019 Interval History: Transferred from [place](see consult note) Multivessel CAD plan for CABG [...] Date 02/25/19 0000 - 02/25/19 2359 Shift 8356-2297 9397-5745 2261-1827 24 Hour Total INTAKE P.O. 200 300 [...] CONTROL; Problem List: Active Problems: CAD in [place] artery Diabetes mellitus (HCC) Hypertension HFrEF (heart failure with reduced ejection fraction) ([facility]) Resolved Problems: * No resolved hospital problems. [...] Jayson Metzger MD * MoiseLukas APRN - BOOK BINDER - 02/24/2019 2:54 PM EST Cardiothoracic Surgery Progress Note 02/24/2019 Subjective: Admit Date: 02/22/2019 Interval History: Transferred from [place](see consult note) Multivessel CAD plan for CABG [...] I/O: Date 02/24/19 0000 - 02/24/192358 Shift 1090-9729 8612-3815 1870-9836 24 Hour Total INTAKE P.O. 678 872 3270 Shift Total(mL/kg) 400(5) 720(9) 1120(14) OUTPUT Urine(mL/kg/hr) [...] CONTROL; Problem List: Active Problems: CAD in [place] artery Diabetes mellitus (HCC) Hypertension HFrEF (heart failure with reduced ejection fraction) ([facility]) Resolved Problems: * No resolved hospital problems. [...] Date 02/24/19 0000 - 02/24/19 2359 Shift 1254-4633 6996-2720 5162-2301 24 Hour Total INTAKE P.O.(mL/kg/hr) 400(0.6) 400 [...] neurologic deficits. Assessment Active Problems: CAD in [place] artery Diabetes mellitus (HCC) Hypertension HFrEF (heart failure with reduced ejection fraction) ([facility]) Resolved Problems: * No resolved hospital problems. [...] be monitored and followed by the diet museum exhibit technician. FAREED Fischer * Mil Pettit MD - 02/23/2019 9:52 AM EST Hospitalist Progress Note 02/23/2019 9:52 AM Subjective: Admit Date: 02/22/2019 PCP: LIANET PETERS Interval History: pt feels ok Some sore throat No overnight issues. Deniesabdominal pain, nausea, vomiting, diarrhea, constipation, fevers, or chills. DIET CARB CONTROL; Date 02/23/19 0000 - 02/23/19 2359 Shift 9815-0338 8910-2977 2806-0583 24 Hour Total INTAKE Shift Total(mL/kg) OUTPUT [...] neurologic deficits. Assessment Active Problems: CAD in [place] artery Diabetes mellitus (HCC) Hypertension HFrEF (heart failure with reduced ejection fraction) ([facility]) Resolved Problems: * No resolved hospital problems. * Await CTS and cards review of images, surgical planning Increase insulin Supportive care otherwise See orders, continue POC Advance Directive: Full Code Suzan Trevino Hospitalist documented in this encounter Assessments Diagnosis CAD in [place] artery- Primary Coronary atherosclerosis of [place] coronary artery S/P CABG x 3 Postsurgical aortocoronary bypass status Type 2 diabetes mellitus with other circulatory complication, with long-term current use of insulin (HCC) Diabetes mellitus ([facility]) Type II or unspecified type diabetes mellitus without mention of complication, not stated as uncontrolled Hypertension Unspecified essential hypertension HFrEF (heart failure with reduced ejection fraction) ([facility]) Hyperkalemia Hyperpotassemia Advance Directives No Advanced Directives Records FoundDocuments on File Type Date Recorded Patient Feed Elevator Worker Expl anation Advance Directives and Living Will Power of [place] Latest Code Status on File Code Status Date Activated Date Inactivated Comments Full Code 02/27/2019 4:35 PM Full Code 02/22/2019 3:10 PM 02/27/2019 4:35 PM Advance Directive Response Recorded Date/ Time Advance Directives Yes May 8:25am Living Will Yes June 03 8:25am Power of [place] Yes June 03, 2021 8:25am Advance Directive Response Recorded Date/ Time Advance Directives Yes May 8:25am Living Will No March 29 5:45pm Power of [place] No March 29, 2022 5:45pm Advance Directive Response Recorded Date/ Time Advance Directives Yes May 9:25am Living Will No March 29 022 6:45pm Power of [place] No March 29, 2022 6:45pm Advance Directive Response Recorded Date/ Time Advance Directives Yes May 9:25am Advance Directive Response Recorded Date/ Time Living Will No October 01, 2023 2:53pm Do you have a Healthcare Power of [place]? No October 01, 2023 2:53pm Advance Directives Yes May 9:25am Advance Directive Response Recorded Date/ Time Living Will No October 01, 2023 2:53pm Do you have a Healthcare Pow er of [place]? No October 01, 2023 2:53pm Do you have a Healthcare Pow er of [place]? Yes January 07, 2025 4:04pm Name of Medical Power of [place] Lynda Francis, [id number] January 07, 2025 4:04p m Advance Directives [...] neuropathy December 9:20am [facility] Chest pain January 07, 2025 [...] neuropathy December 9:20am PAD (peripheral artery disease) [facility]20[facility] Chest pain January 07, [...] Left ventricular hypertrophy January 8:50am Atherosclerosis of [place] co ronary artery of [place] heart without angina 2025 8:50am Additional Source Comments INFORMATION SOURCE (unrecogn ized section and content) DATE CREATED AUTHOR 05/04/2019 [employer] DATE CREATED AUTHOR AUTHOR'S ORGANIZ ATION 02/28/2025 [facility] Goals (unrecognized section and content) Goals may [...] , DO Primary Care Provider Active Charlie Johnson SECURITY SHIFT SUPERVISOR, SECURITY SHIFT SUPERVISOR-C Attending Provider, Referring Pro vider Active Team [...] Provider, Referring P rovider Active Kaley Son SECURITY SHIFT SUPERVISOR, SECURITY SHIFT SUPERVISOR-C Attending Provider Active Team Status: Inactive Member [...] 2024 End: June 05, 2024 Charlie Johnson SECURITY SHIFT SUPERVISOR, SECURITY SHIFT SUPERVISOR-C Attending Provider Active S tart: June 05, [...] Status Dates Dr. Marileos Perla DO Primary Care Provider Active Start: [...] December 22, 2024 End: December 22, 2024 SKYELR Watson Referring Provider Active Star t: December [...] 08, 2025 Dr. [facility] Active Start: January 07, 2025 [...] 08, 2025 Dr. [facility] Active Start: January 08, [...] 2025 End: January 10, 2025 Lamar Olivera SECURITY SHIFT SUPERVISOR, SECURITY SHIFT SUPERVISOR-C Attending physician Active Start: January 10, 2025 End: January 10, 2025 Team Status: Inactive Member Role/Relationship Status Dates Dr. Marielos Perla DO Primary care physician Active Start: January 10, 2025 End: January 10, 2025 Lamar Olivera SECURITY SHIFT SUPERVISOR, SECURITY SHIFT SUPERVISOR-C Attending physician Active Start: January 10, 2025 [...] 06, 2024 End: December 06, 2024 Jennifer OHLLAND, PA Attending physician Active Start: December 06, [...] 08, 2025 Dr. Elena [facility] Active Start: January 08, [...] 2025 End: January 10, 2025 Lamar Olivera SECURITY SHIFT SUPERVISOR, SECURITY SHIFT SUPERVISOR-C Attending physician Active Start: January 10, 2025 End: January 10, 2025 Team Status: Inactive Member Role/Relationship Status Dates Dr. Marielos Perla DO Primary care physician Active Start: January 10, 2025 End: January 10, 2025 Lamar Olivera SECURITY SHIFT SUPERVISOR, SECURITY SHIFT SUPERVISOR-C Attending physician Active Start: January 10, 2025 [...] End: January 29, 2025 Lamar Olivera NP SECURITY SHIFT SUPERVISOR-C Attending physician Active Start: January 29, 2025 [...] PRIMARY CLINICAL RECORDS. [facility] [employer] [facility]. provides no warranty or guarantee of the accuracy or completeness of information in this document.
[2025-03-18 19:29] VITALS: BP 172/87; PULSE 85; RESP 14; TEMP 36.1; O2SAT 99
== END 2025-03-18 19:30 | disposition home or self-care (01) ==
PROVIDERS: Emergency Provider Emergency Medicine; PCP Family Medicine; Visit Provider Emergency Medicine
DX: S82.65XA Nondisplaced fracture of lateral malleolus of left fibula, initial encounter for closed fracture (principal); E11.51 Type 2 diabetes mellitus with diabetic peripheral angiopathy without gangrene; Z79.4 Long term (current) use of insulin; W19.XXXA Unspecified fall, initial encounter; I10 Essential (primary) hypertension; Z79.84 Long term (current) use of oral hypoglycemic drugs; Z79.899 Other long term (current) drug therapy
CPT/HCPCS: 73610; 99283

== ENCOUNTER 2025-03-22 11:58 | Day surgery (SDC) | payer MEDICARE, SELFPAY ==
[2019-11-14 08:38] VITALS: BMI 31.6
--- NOTE | 2025-03-14 12:17 | PAT.ANE_ITS ---
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 When Was Last Pacemaker Check QUESTION #4 FULL TEXT: You/Your Family Experience fever (hyperthermia) with Anesthesia Last Oral Intake Last Oral intake: Last Oral Intake NPO since Meds taken in AM with sips of water? Meds patient instructed to take am of surgery PONV PONV - test and balance engineer: PONV - test and balance engineer Female Yes 03/13/25 16:19 HX of Motion Sickness No 03/13/25 16:19 HX of N/V After Surgery No 03/13/25 16:19 Non-Smoker No 03/13/25 16:19 Duration of Surgery greater No 03/13/25 16:19 than 60 minutes Number of Risk Factors 1 03/13/25 16:19 PONV Score Low Risk 03/13/25 16:19 Height & Weight Height & Weight: Anesthesia: Height & Weight Height 5 ft 2 in 02/14/25 14:55 Respiratory Assessment Respiratory Assessment - test and balance engineer: Respiratory Tract Infection Hx - test and balance engineer Hx Respiratory Tract Infection No 03/13/25 16:19 STOP Sleep Apnea STOP Sleep Apnea - test and balance engineer: STOP Sleep Apnea - test and balance engineer Hx Hypertension Yes: CONTROLLED WITH MED 03/13/25 16:19 Hx Sleep Apnea No 03/13/25 16:19 CPAP No 01/07/25 16:04 BIPAP No 01/07/25 16:04 Do you snore loudly (louder Yes 03/13/25 16:19 than talking or can be heard Do you often feel tired/ No 03/13/25 16:19 fatigued/ sleepy during daytime? Has anyone observed you stop No 03/13/25 16:19 breathing during sleep? STOP Results Positive 03/13/25 16:19 QUESTION #5 FULL TEXT : Do you snore loudly (louder than talking or can be heard through closed doors)? 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 Specify any problems Hx of Preganancy in last 3 No 03/13/25 16:19 Months Nurse Filling Out Transfusion DSCHRIBER 03/13/25 16:19 & Questions: Date: 03/13/25 03/13/25 16:19 Time: 16:21 03/13/25 16:19 Patient unable to answer at this time (ie. confused, unrespo /Reproduction History /Reproductive History - test and balance engineer: /Reproductive Hx- test and balance engineer Hx Now No 03/13/25 16:19 Gestational Age (in weeks): EDC: Hx Hx Para Hx Section SAB No 03/13/25 16:19 Does the father of the baby or his family experience fever w Father of the baby Malignant Hypertension history comment PFSH Medical History (Updated 03/13/25 @ 16:30 by Lynda Franks) PAD (peripheral artery disease) Wears glasses Post-menopausal Depression Anxiety Diabetes Arthritis High cholesterol Back pain Gastric reflux Smoker Shortness of breath on exertion History of pain when walking History of echocardiogram History of stress test Cardiology follow-up encounter History of heart attack Severe left ventricular systolic dysfunction (LVSD) Right rotator cuff tear Trigger finger of both hands History of left heart catheterization (LHC) (~06/03/21) Essential hypertension Mechanical loosening of prosthetic knee Atherosclerosis of [place] coronary artery of [place] heart without angina pectoris PAD (peripheral artery disease) HLD (hyperlipidemia) Home Medications ?Medication ?Instructions ?Recorded ?Last Taken ?Type aspirin 81 mg tablet,delayed 81 mg PO DAILY heart heal th 12/15/13 01/07/25 History release duloxetine 60 mg capsule,delayed 60 mg PO DAILY mental health 08/20/22 01/07/25 History release allopurinol 300 mg tablet 300 mg PO BID gout 11/05/23 01/07/25 History cilostazol 100 mg tablet 100 mg PO BID anti platelet 11/05/23 01/07/25 History rosuvastatin 10 mg tablet See Rx Instructions .Route 1 01/06/25 Rx .COMPLEX cholesterol #90 TABLETS furosemide 40 mg tablet 40 mg PO DAILY diuretic #90 TABLETS 06/19/24 01/07/25 Rx insulin aspar prt-insulin aspart 20 unit subcut QAM CO N diabetes 11/02/24 01/07/25 History 100 unit/mL (70-30) subcutaneous soln (Novolog Mix 70-30 U-100 Insuln) nitroglycerin 0.4 mg sublingual 0.4 mg sublingual Q5-1 5M PRN chest 11/02/24 Unknown Rx tablet pain #25 tabs tirzepatide 10 mg/0.5 mL 10 mg subcut MO diabetes 03/12/25 History subcutaneous pen injector (May) isosorbide mononitrate 60 mg 60 mg PO BID heart 01/07/25 History tablet,extended release 24 hr omeprazole 20 mg capsule,delayed 20 mg PO DAILY reflux 01/07/25 01/07/25 History release losartan 25 mg tablet 12.5 mg (1/2 x 25 mg) PO GAYE LY #15 01/08/25 Unknown Rx tabs metoprolol tartrate 50 mg tablet 75 mg (1.5 x 50 mg) P O BID blood 01/08/25 Unknown Rx pressure #180 tabs ranolazine 500 mg tablet,extended 500 mg PO BID #180 t abs 01/30/25 Unknown Rx release,12 hr Allergy/AdvReac Type Severity Reaction Status Date / Time cefazolin Allergy Shortness Verified 03/13/25 16:16 of breath codeine Allergy Shortness Verified 03/13/25 16:16 of breath morphine Allergy Other Verified 03/13/25 16:16 naloxone (Naloxone) Allergy Shortness Verified 03/13/25 16:16 of breath pentazocine Allergy Shortness Verified 03/13/25 16:16 of breath pentazocine lactate (From Allergy Shortness Verified 03/13/25 16:16 Flakita) of breath atorvastatin AdvReac Severe Severe Verified 03/13/25 16:16 myalgias acetaminophen (From Tylenol) AdvReac Nausea Verified 03/13/25 16:16 Family History Mother Heart disease Surgical History (Updated 03/13/25 @ 16:27 by Lynda Franks) History of cardiac catheterization History of carpal tunnel surgery of right wrist History of carpal tunnel surgery of left wrist History of cholecystectomy History of coronary artery bypass graft x 3 (~02/27/19) History of prosthetic unicompartmental arthroplasty of left knee Social History current occupational status: retired current occupation: Retired. [employer]. Smoking Status: Light Smoker (<10/day) alcohol intake: current alcohol intake frequency: holidays/special occasions only substance use type: does not use caffeine: Yes Type: coffee Number of servings: 3 do you feel safe at home: Yes additional social history: . Audit: Pertinent Findings HISTORY of Pertinent Findings History of Pertinent Findings: As per cardiology: 75-year-old female who presents to office today for hospital follow-up. She has a history of coronary artery disease status post CABG receiving GIRALDO to her LAD, SVG to the OM 2 and SVG to RCA/PDA in February 2019 at [facility], ischemic mediated cardiomyopathy, hyperlipidemia, hypertension and peripheral arterial occlusive disease following with vascular surgery, Dr. Torres. 01/07/2025 she presented to [facility] ED with complaints of chest pain. She had been experiencing multiple weeks of indigestion prior to this. Troponin was elevated at 27 on arrival. EKG and chest CT in the emergency department demonstrated no acute findings. She was started on a heparin drip and admitted for ACS rule out and catheterization. She underwent cardiac catheterization 01/08/2025 that demonstrated patent giraldo to the LAD and patent SVG to the posterior descending artery, occluded SVG to the second OM which was previously known. Ejection fraction was reported at 60%. Medical therapy was recommended. While admitted, the hospitalist increased metoprolol to 75mg BID, decreased Losartan to 12.5 BID, and started her on ranolazine 500mg BID for angina. Catheterization from 01/08/2025 shows stable coronary artery plaque. Continue medical management including antiplatelet, statin, nitrate,and beta jessica and monitoring symptoms Pertinent Findings EKG Perinent findings: Normal sinus rhythm Normal ECG Confirmed by ANTONIO WANG MD ([id number]), editorial manager SHILPA VALENZUELA ([id number]) on 01/08/2025 7:56:38 AM Stress test pertinent findings: Stress Test 02/21/2024 Conclusion: Normal pharmacologic myocardial perfusion stress test. Preserved ejection fraction. Echo (EF%) pertinent findings: Echocardiogram 02/21/2024 Interpretation Summary Normal LV size. Severe concentric left ventricular hypertrophy. The left ventricular ejection fraction is 60 %. Stage 1 diastolic dysfunction Heart catheterization pertinent findings: Left heart catheterization 01/08/2025 CONCLUSIONS Ejection fraction 60% Coronary artery disease with patent GIRALDO to the LAD, saphenous vein graft to posterior descending artery, diffusely diseased circumflex artery with obtuse marginal to the circumflex artery territory occluded. This was previously known. ORONARY ANGIOGRAPHY 01/08/2025 DOMINANCE: Right Dominant LEFT HEART ASSESSMENT Left Ventricular Ejection Fraction: by Echo 60 % Normal Left Ventricular systolic function LEFT MAIN: Ostial 40% stenosis. Mild calcification present LEFT ANTERIOR DESCENDING ARTERY: This vessel gave her for first diagonal branch which is diffusely diseased and then in the midsegment appears to be totally occluded. CIRCUMFLEX ARTERY: Diffusely diseased vessel. 1st and 2nd obtuse marginal branch and diffusely diseased these are smaller vessels at the large obtuse marginal branches patent with no significant stenosis and an AV groove branch has mild diffuse 30 to 40% stenosis. RIGHT CORONARY ARTERY: is occluded GRAFTS: GIRALDO graft to the Mid LAD is patent Saphenous Vein graft to the RPDA is patent Saphenous Vein graft to the 2nd OM is totally occluded COLLATERAL FLOW: Collateral flow from Left to Right Additional pertinent findings: Chest CTA 02/19/2024 IMPRESSION: Normal CTA chest examination, without a demonstrated pulmonary embolism or arterial dissection. No acute pulmonary findings. Multinodular goiter. If not previously evaluated, consider routine follow-up thyroid ultrasound. Recommendation Anesthesia Recommendation Anesthesia recommendation: OPTIMIZED for anesthesia
[2025-03-19 11:51] LABS: Hematocrit 39.9 % (37-47); Hemoglobin 13.0 g/dL (12.0-15.0); Mean Corp Hgb Conc 32.6 g/dL (32-36); Mean Corpuscular Volume 96.4 fL (81-99); Mean Platelet Vol. 9.9 fl (6.2-12.0); Platelet Count 382 K/mm3 (150-450); RBC Distribution Width CV 15.5 % (11.6-14.6); RBC Distribution Width SD 54.6 fl (35.1-43.9); Red Blood Count 4.14 M/mm3 (4.2-5.4); White Blood Count 9.1 K/mm3 (4.4-11.0)
[2025-03-19 12:19] LABS: AST(SGOT) 19 U/L (<=31); Alanine Aminotransfer ALT/SGPT 9 U/L (<=34); Albumin, Serum 3.8 g/dL (3.4-4.8); Alkaline Phosphatase 86 U/L (35-104); Anion Gap 11 (5-15); BUN 13 mg/dL (4-19); BUN/Creat Ratio 12.9 RATIO (10-20); Calcium,Total 9.2 mg/dL (7.6-11.0); Carbon Dioxide 28.4 mmol/L (21.0-32.0); Chloride 102 mmol/L (98-108); Globulin 3.1 g/dL (2.2-4.2); Glucose 58 mg/dL (70-99); Potassium 3.3 mmol/L (3.3-5.1)
[2025-03-22] VITALS (10 sets, daily range): BP systolic 121–142; BP diastolic 56–70; PULSE 67–81; RESP 16–18; TEMP 36.2–36.4; O2SAT 93–97; BMI 29.8
--- NOTE | 2025-03-22 12:26 | HP.PCM_ITS ---
History and Physical Date of Admission: 03/22/25 Intake Vital Signs 01/30/2507:55 02/14/2514:55 03/12/2513:23 Height 5 ft 2 in 5 ft 2 in 5 ft 2 in Weight: 166 lb 1 oz BMI 30.4 BP 122/67 H Intake Visit Reasons: Pre-op D&C Doctor Of Nurse Anesthesia Practice Required: No Is patient in pain?: No Allergies cefazolin Allergy (Verified 03/12/25 13:24) Shortness of breath codeine Allergy (Verified 03/12/25 13:24) Shortness of breath morphine Allergy (Verified 03/12/25 13:24) Other naloxone (Naloxone) Allergy (Verified 03/12/25 13:24) Shortness of breath pentazocine Allergy (Verified 03/12/25 13:24) Shortness of breath pentazocine lactate (From Talwin) Allergy (Verified 03/12/25 13:24) Shortness of breath atorvastatin Adverse Reaction (Severe, Verified 03/12/25 13:24) Severe myalgias acetaminophen (From Tylenol) Adverse Reaction (Verified 03/12/25 13:24) Nausea Medications ?Medication ?Instructions ?Recorded ?Confirmed ?Type aspirin 81 mg tablet,delayed 81 mg PO DAILY heart health 12/15/13 History release duloxetine 60 mg capsule,delayed 60 mg PO DAILY mental health 08/20/22 History release allopurinol 300 mg tablet 300 mg PO BID gout 11/05/23 03/12/25 His tory cilostazol 100 mg tablet 100 mg PO BID anti platelet 11/05/23 History rosuvastatin 10 mg tablet See Rx Instructions .Route 04/17/24 03/12/25 Rx .COMPLEX cholesterol #90 TABLETS furosemide 40 mg tablet 40 mg PO DAILY diuretic #90 TABLETS 03/0 07/1103/12/25 Rx insulin aspar prt-insulin aspart 20 unit subcut QAM diabetes 11/02/24 History 100 unit/mL (70-30) subcutaneous soln (Novolog Mix 70-30 U-100 Insuln) nitroglycerin 0.4 mg sublingual 0.4 mg sublingual Q5-15M PRN chest 11/0203/12/25 Rx tablet pain #25 tabs tirzepatide 10 mg/0.5 mL 10 mg subcut .every week diabetes 03/12/25 History subcutaneous pen injector (May) isosorbide mononitrate 60 mg 60 mg PO BID heart 01/07/25 03/12/25 His tory tablet,extended release 24 hr omeprazole 20 mg capsule,delayed 20 mg PO DAILY reflux 01/07/25 03/12/25 History release losartan 25 mg tablet 12.5 mg (1/2 x 25 mg) PO DAILY #15 01/0803/12/25 Rx tabs metoprolol tartrate 50 mg tablet 75 mg (1.5 x 50 mg) PO BID blood 5 03/12/25 Rx pressure #180 tabs ranolazine 500 mg tablet,extended 500 mg PO BID #180 tabs 01/30/25 5 Rx release,12 hr Is last menstrual period known: No Post menopausal: Yes Patient : No : No PFSH Medical History Severe left ventricular systolic dysfunction (LVSD) Palpitations Right rotator cuff tear Trigger finger of both hands Carpal tunnel syndrome on both sides FHx: cholecystectomy History of left heart catheterization (LHC) (~06/03/21) Essential hypertension Mechanical loosening of prosthetic knee Atherosclerosis of [place] coronary artery of [place] heart without angina pectoris PAD (peripheral artery disease) HLD (hyperlipidemia) Type II diabetes mellitus Surgical History History of cholecystectomy History of coronary artery bypass graft x 3 (~02/27/19) History of prosthetic unicompartmental arthroplasty of left knee Family History Mother Heart disease Social History current occupational status: retired current occupation: Retired. [employer]. Smoking Status: Light Smoker (<10/day) alcohol intake: current alcohol intake frequency: holidays/special occasions only substance use type: does not use caffeine: Yes Type: coffee Number of servings: 3 do you feel safe at home: Yes additional social history: . HPI Pre-op D&C Details: HPI: The patient is a 74-year-old female with a history of endometrial thickening, diabetes mellitus, and extensive cardiac history presenting for a consultation regarding a D&C. Endometrial Thickening - Recently evaluated by Dr. Lamar Olivera, who noted endometrial thickening on ultrasound. - Initial endometrial biopsy was performed but was non-diagnostic, showing no endometrial tissue. - Denies any significant cramping or bleeding post-biopsy. - Denies any episodes of vaginal bleeding. - Initial ultrasound was ordered due to reported lower pelvic pain. Diabetes Mellitus - Currently managed with Mounjaro, which she reports has been effective in maintaining blood glucose levels. - Last HbA1c was 6.3-6.7. - Uses NovoLog 70/30 insulin on an as-needed basis, often not requiring it in the mornings. Cardiac History - Extensive cardiac history, including a triple bypass surgery performed in 2018. - Recent echocardiogram reportedly showed good cardiac function. - Denies any current chest pain or shortness of breath. Peripheral Arterial Disease (PAD) - Diagnosed with PAD of the legs. - Able to walk but occasionally needs to stop and rest. - Denies significant swelling in the legs. Past Surgical History - Triple bypass surgery in 2018. - Knee surgery. - Cholecystectomy. Social History - Enjoys taking care of her 2.5-year-old grandson. - [id number], Lynda, a nurse, will be accompanying her on the day of surgery. Subjective Sections: Current Meds - Mounjaro once weekly subcutaneous - 70/30 insulin as needed subcutaneous - NovoLog as needed subcutaneous PMHx - Type 2 diabetes mellitus - Hyperlipidemia - Hypertension - Coronary artery disease - Peripheral artery disease PSHx - Coronary artery bypass graft (2018) - Knee surgery - Cholecystectomy ROS: Cardiovascular: (-) chest pain, (-) peripheral edema Respiratory: (-) shortness of breath Gastrointestinal: (-) diarrhea, (-) constipation Genitourinary: (-) vaginal bleeding Musculoskeletal: (+) back pain, (+) joint pain Neurological: (-) numbness, (-) neuropathy all other systems reviewed and negative PhysicalExam: GENERAL: Pleasant; in no apparent distress PULMONARY: normal inspiratory effort; lungs clear to auscultation bilaterally ABDOMEN: soft, non-tender, no masses NEURO: alert and oriented x3 EXTREMITIES: normal CARDIOVASCULAR: No murmurs History 2 Elective abortions Hx Para 2 Spontaneous abortions Hx # Term Pregnancies Ectopic pregnancies Hx # Pregnancies Multiple births # of living children Past Pregnancies Del. Date Name GA/Weeks Outcome Route Bth Weight [facility] [birth year] Germán HENDERSON [birth year] Jean-Claude HENDERSON Coding Level of Care Code Off vis,est,level 4 Diagnoses Thickened endometrium R93.89 Additional Codes SDOH Screening - Does the patient want assistance with any of the above?: No (G0136) Assessment and Plan Assessment and Plan (1) Thickened endometrium: Status: Acute Comment: 6.6mm. no vag bleeding.d and c hysteroscopy Plan Assessment/Plan: # Thickened endometrium (R93.89): - Intermittent lower pelvic pain prompted initial ultrasound demonstrating increased endometrial thickness; prior endometrial biopsy was inconclusive, returning no endometrial tissue. - Proceeding with diagnostic and therapeutic dilation and curettage (D&C) and hysteroscopy under sedation on the to obtain adequate tissue sample and address any identified pathology such as polyps. - Discussed risks including bleeding, infection, and uterine perforation; patient acknowledged and consented to procedure. - Educated patient to hold Mounjaro 7 to 10 days before surgery and refrain from insulin if not eating on day of procedure; no drive home post-anesthesia, but routine activities and driving may resume the next day. - Provided preoperative instructions regarding the use of antiseptic soap from the neck down the night prior and morning of surgery, and no solid food for 8 hours before surgery with clear liquids permissible until 2 hours before. - Postoperative follow-up appointment scheduled on the ; patient instructed to call for any signs of worsening pain, fever, or heavy bleeding. # Type 2 diabetes mellitus without complications (E11.9): - Hemoglobin A1c of approximately 6.3, indicating good glycemic control. - Continues on Mounjaro; instructed to hold one dose 7 to 10 days before the scheduled procedure. - Patient typically uses 70/30 insulin as needed; advised to abstain from insulin on day of procedure due to fasting status. - Advised to continue self-monitoring blood glucose postoperatively. # Essential (primary) hypertension (I10): - Stable on current regimen per patient report; no episodes of chest pain or shortness of breath noted. - No adjustment indicated at this time based on stable blood pressure control. # Atherosclerosis of [place] arteries of extremities with intermittent claudication, bilateral legs (I70.213): - Patient experiences occasional need to rest during ambulation but reports no other concerns; no signs of worsening claudication. - No new interventions indicated at this time; condition remains stable. Patient Instructions: - Hold your scheduled Mounjaro dose before surgery; take all other usual medications with a small sip of water as directed, except do not take your insulin the morning of the procedure. - Do not eat or drink anything for 8 hours before surgery; clear liquids are allowed until 2 hours before your arrival time. - Use the special antimicrobial soap from neck to toes the night before and again the morning of surgery to help reduce infection risk. - Plan to arrive at the hospital by 11:30 am on the for your dilation and curettage with hysteroscopy; you?ll be asleep under twilight anesthesia and wake comfortably when it?s done. The hospital will call the day before to confirm your exact arrival time. - Arrange a ride to and from the hospital?you cannot drive yourself home after surgery. - You may resume normal eating, activities, and stair-climbing the same day; you can drive the next day. - Attend your post-operative visit on the ; check with the first front ventilator for the appointment time. UPDATE- I have seen the patient and performed any clinically relevant updates to the history and physical exam. Yaa Stanford MD
[2025-03-22] MEDS: Lactated Ringers 1,000 ML 15 ML IV (12:47)
--- NOTE | 2025-03-22 13:30 | EMB_PTH ---
PATIENT: KINGSLEY GURROLA LOC: [facility] [place] U#:[id number] AGE/SX: 75/F ROOM: RE03/22/[address]: Dr. Yaa Stanford MD : 1950 BED: DIS: 03/22/2025 SPEC #: [id number] RECD: 03/22/25 16:09 STATUS: LISBETH MARIEL #: [id number] BETO: 03/22/25 13:[address]: Yaa Stanford DEPT: SURGICAL PATHOLOGY RECD BY: Gustavo Sarabia ENTERED: 03/23/25 11:30 SP TYPE: ENDOM BX/C KOBI DR: Dr. Marielos Perla, DO Tissues: A - Endometrium, NOS Procedures: Surgery Specimen Level IV HEADER OPERATION: Hysteroscopy, dilation and curettage PRE-OP DIAGNOSIS: Thickened endometrium TISSUE SUBMITTED: A- Endometrial curettings MICROSCOPIC DIAGNOSIS A. Endometrium, curettage: - Fragments of benign squamous cervical mucosa and endocervical mucosa with squamous metaplasia. - Scant benign superficial glandular mucosa consistent with endometrium - see note. Note: A very limited amount of superficial endometrium is seen. Clinical correlation to assess the adequacy of the sampling is necessary. MICROSCOPIC DESCRIPTION Slides are reviewed. GROSS DESCRIPTION A. Received in formalin labeled with the patient's name and date of . Designated as endometrial curettings is a 2.5 x 1.3 x 0.1 cm aggregate of mucoid material and flecks of red-brown apparent tissue. Entirely submitted in 1 cassette. IN 03/23/2025 CPT:40671
--- NOTE | 2025-03-22 13:47 | PCM.PRE.AN2 ---
ASA Classification* ASA Classification ASA Classification: 3 Assessment & Plan Anesthesia* Anesthesia Assessment Anesthesia Assessment: Discussed sedation and/or anesthesia options, risks, benefits, and alternatives with patient/parents/legal guardian/POA. Questions invited. The patient/parents/legal guardian/POA seems to understand and agrees to proceed with anesthesia plan. Reviewed the physical assessment, medical history, allergy history and patient home medications list prior to surgery/procedure/anesthetic and documented any changes. Performed airway and anesthesia risk assessments. Anesthesia Type Anesthesia Type: MAC History Source History Obtained from:: Patient and Chart Anesthesia Focused Assessment* Temperature: 97.6 F Pulse Rate: 67 Blood Pressure: 142/69 Respiratory Rate: 16 Pulse Ox: 97 Oxygen Delivery Method: Room Air Airway Assessment Mouth opens: >3 cm Mallampati Score: III Teeth Condition: Chipped/Broken (Chip #9) and Missing (Patient is missing several teeth. The rest are tight.) Neck Range of motion (ROM): Limited ROM (Slight Decrease) Labs Anesthesia Preop lab: CBC WBC, (4.4-11.0) 9.1 K/mm3 03/19/25, 11:14 RBC, (4.2-5.4) 4.14 M/mm3 L 03/19/25, 11:14 Hgb, (12.0-15.0) 13.0 g/dL 03/19/25, 11:14 Hct, (37-47) 39.9 % 03/19/25, 11:14 Plt Count, (150-450) 382 K/mm3 03/19/25, 11:14 CHEMISTRY Potassium, (3.3-5.1) 3.3 mmol/L 03/19/25, 11:14 Sodium, (133-145) 141 mmol/L 03/19/25, 11:14 Magnesium, (1.6-2.6) 2.0 mg/dL 02/21/24, 05:20 Phosphorus, (2.5-4.9) 4.4 mg/dL 02/21/24, 05:20 BUN, (4-19) 13 mg/dL 03/19/25, 11:14 Creatinine, (0.70-1.20) 0.98 mg/dL 03/19/25, 11:14 Glucose, (70-99) 58 mg/dL L 03/19/25, 11:14 POC Glucose, (74-106) 178 mg/dL H Today, 12:55 TSH, (0.358-3.740) 0.994 uIU/mL 02/20/24, 05:20 COAG PT, (11.7-14.9) 14.2 SECONDS 01/07/25, 14:31 Pre-Assessment Diagnosis/Proposed Procedure Planned Operative Procedure(s): HYSTEROSCOPY D&C Anesthesia History Anesthesia History - advice line rn: Anesthesia History - advice line rn Hx Hospitalization Yes: HEART ISSUES 8 MONTHS 03/13/25 16:19 AGO Any Problems With Anesthesia No 03/13/25 16:19 Cholinesterase deficiency No 03/13/25 16:19 You/Your Family Experience No 03/13/25 16:19 fever (hyperthermia) with Relationship Recent Exposure to Contagious No 11/14/19 08:38 Disease Does patient have nerve No 03/13/25 16:19 stimulator Patient instructed to have device shut off --Does patient have Pacemaker No 03/22/25 12:37 or ICD? When Was Last Pacemaker Check QUESTION #4 FULL TEXT: You/Your Family Experience fever (hyperthermia) with Anesthesia Last Oral Intake Last Oral intake: Last Oral Intake NPO since 08:30 03/22/25 12:37 Meds taken in AM with sips of Yes 03/22/25 12:37 water? Meds patient instructed to see med list 03/22/25 12:37 take am of surgery Any additional information?: Yes Meds taken in AM with sips of water?: Yes PONV PONV - advice line rn: PONV - advice line rn Female Yes 03/13/25 16:19 HX of Motion Sickness No 03/13/25 16:19 HX of N/V After Surgery No 03/13/25 16:19 Non-Smoker No 03/13/25 16:19 Duration of Surgery greater No 03/13/25 16:19 than 60 minutes Number of Risk Factors 1 03/13/25 16:19 PONV Score Low Risk 03/13/25 16:19 Height & Weight Height & Weight: Anesthesia: Height & Weight Height 5 ft 2 in 03/22/25 12:37 Weight: 73.936 kg 03/22/25 12:37 Body Mass Index (BMI) 29.8 03/22/25 12:37 Respiratory Assessment Respiratory Assessment - advice line rn: Respiratory Tract Infection Hx - advice line rn Hx Respiratory Tract Infection No 03/13/25 16:19 STOP Sleep Apnea STOP Sleep Apnea - advice line rn: STOP Sleep Apnea - advice line rn Hx Hypertension Yes: CONTROLLED WITH MED 03/13/25 16:19 Hx Sleep Apnea No 03/13/25 16:19 CPAP No 01/07/25 16:04 BIPAP No 01/07/25 16:04 Do you snore loudly (louder Yes 03/13/25 16:19 than talking or can be heard Do you often feel tired/ No 03/13/25 16:19 fatigued/ sleepy during daytime? Has anyone observed you stop No 03/13/25 16:19 breathing during sleep? STOP Results Positive 03/13/25 16:19 QUESTION #5 FULL TEXT : Do you snore loudly (louder than talking or can be heard through closed doors)? 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 Specify any problems Hx of Preganancy in last 3 No 03/13/25 16:19 Months Nurse Filling Out Transfusion DSCHRIBER 03/13/25 16:19 & Questions: Date: 03/13/25 03/13/25 16:19 Time: 16:21 03/13/25 16:19 Patient unable to answer at this time (ie. confused, unrespo /Reproduction History /Reproductive History - advice line rn: /Reproductive Hx- advice line rn Hx Now No 03/13/25 16:19 Gestational Age (in weeks): EDC: Hx Hx Para Hx Section SAB No 03/13/25 16:19 Does the father of the baby or his family experience fever w Father of the baby Malignant Hypertension history comment Active Medications Active Medications: Current Medications Generic Name Dose Route Start Last Admin Trade Name Freq PRN Reason Stop Dose Admin Enoxaparin Sodium 40 mg 03/22/25 12:36 03/22/25 12:56 Enoxaparin 40 Mg/0.4 Ml Syringe SC 03/22/25 12:37 40 mg X1 ONE Administration Lactated Ringer's 1,000 mls @ 15 mls/hr 03/22/25 12:30 03/22/25 12:47 IV 15 mls/hr .Q48H GASPER Administration PFSH Medical History PAD (peripheral artery disease) Wears glasses Post-menopausal Depression Anxiety Diabetes Arthritis High cholesterol Back pain Gastric reflux Smoker Shortness of breath on exertion History of pain when walking History of echocardiogram History of stress test Cardiology follow-up encounter History of heart attack Severe left ventricular systolic dysfunction (LVSD) Right rotator cuff tear Trigger finger of both hands History of left heart catheterization (LHC) (~06/03/21) Essential hypertension Mechanical loosening of prosthetic knee Atherosclerosis of [place] coronary artery of [place] heart without angina pectoris PAD (peripheral artery disease) HLD (hyperlipidemia) Home Medications ?Medication ?Instructions ?Recorded ?Last Taken ?Type aspirin 81 mg tablet,delayed 81 mg PO DAILY heart health 12/15/13 01/07/25 History release duloxetine 60 mg capsule,delayed 60 mg PO DAILY mental health 08/20/22 01/07/25 History release allopurinol 300 mg tablet 300 mg PO BID gout 11/05/23 01/07/25 History cilostazol 100 mg tablet 100 mg PO BID anti platelet 11/05/23 01/07/25 History rosuvastatin 10 mg tablet See Rx Instructions .Route 04/17/24 01/06/25 Rx .COMPLEX cholesterol #90 TABLETS furosemide 40 mg tablet 40 mg PO DAILY diuretic #90 TABLETS 06/19/24 01/07/25 Rx insulin aspar prt-insulin aspart 20 unit subcut QAM PRN diabetes 11/02/24 01/07/25 History 100 unit/mL (70-30) subcutaneous soln (Novolog Mix 70-30 U-100 Insuln) nitroglycerin 0.4 mg sublingual 0.4 mg sublingual Q5-15M PRN chest 11/02/24 Unknown Rx tablet pain #25 tabs tirzepatide 10 mg/0.5 mL 10 mg subcut MO diabetes 11/02/24 03/12/25 History subcutaneous pen injector (May) isosorbide mononitrate 60 mg 60 mg PO BID heart 01/07/25 03/22/25 08:30 History tablet,extended release 24 hr omeprazole 20 mg capsule,delayed 20 mg PO DAILY reflux 01/07/25 01/07/25 History release losartan 25 mg tablet 12.5 mg (1/2 x 25 mg) PO DAILY #15 01/08/25 03/22/25 08:30 Rx tabs metoprolol tartrate 50 mg tablet 75 mg (1.5 x 50 mg) PO BID blood 01/08/25 03/22/25 08:30 Rx pressure #180 tabs ranolazine 500 mg tablet,extended 500 mg PO BID #180 tabs 01/30/25 Unknown Rx release,12 hr Allergy/AdvReac Type Severity Reaction Status Date / Time cefazolin Allergy Shortness Verified 03/22/25 12:32 of breath codeine Allergy Shortness Verified 03/22/25 12:32 of breath morphine Allergy Other Verified 03/22/25 12:32 naloxone (Naloxone) Allergy Shortness Verified 03/22/25 12:32 of breath pentazocine Allergy Shortness Verified 03/22/25 12:32 of breath pentazocine lactate (From Allergy Shortness Verified 03/22/25 12:32 Vaibhavwin) of breath atorvastatin AdvReac Severe Severe Verified 03/22/25 12:32 myalgias Family History Mother Heart disease Surgical History History of cardiac catheterization History of carpal tunnel surgery of right wrist History of carpal tunnel surgery of left wrist History of cholecystectomy History of coronary artery bypass graft x 3 (~02/27/19) History of prosthetic unicompartmental arthroplasty of left knee Social History current occupational status: retired current occupation: Retired. [employer]. Smoking Status: Light Smoker (<10/day) alcohol intake: current alcohol intake frequency: holidays/special occasions only substance use type: does not use caffeine: Yes Type: coffee Number of servings: 3 do you feel safe at home: Yes additional social history: . Review of Systems (Anesthesia) ROS Narrative System reviewed and no additional complaints, except as documented.
[2025-03-22] MEDS: Lactated Ringers 500 ML IV (14:49)
[2025-03-22] MEDS: Midazolam 2 MG/2 ML Syringe IV (14:50)
[2025-03-22] MEDS: Lidocaine 1% (5 ml sdv) 5 ML Vial IV (14:55)
[2025-03-22] MEDS: fentaNYL 100 MCG/2 ML Ampul IV (15:08)
[2025-03-22] MEDS: Lidocaine 1% (20 ml mdv) 20 ML Vial (15:11)
--- NOTE | 2025-03-22 15:25 | PCM.POST.ANE ---
Anesthesia: Postop Eval I Current Vital Signs Temperature: 97.5 F Pulse Rate: 80 Blood Pressure: 128/62 Respiratory Rate: 16 Pulse Ox: 96 Oxygen Delivery Method: Room Air Assessment Airway patent: Yes Spontaneous unlabored respirations: Yes Mental status: Awake and Calm nausea: No Vomiting: No Anesthesia Complication: No Fluid Hydration Crystalloid volume administer (ml): 500 Total IV fluid infused: 500 Progress Note Anesthesia document: Postop Eval 1 completed: Yes
--- NOTE | 2025-03-22 15:38 | PCM.OPRPT ---
Multi Select Codes Urinary/Genital Urinary/Genital CPT Codes: 45516 Hysteroscopy, Polypectomy, Symphion Operative Report (Standard) Operative Information Date of Procedure: 03/22/25 Pre-Operative Diagnosis: see problem list comments Post-Operative Diagnosis: same Surgery/Procedure Performed: dilation and curettage hysteroscopy credit and collection manager: No Type of Anesthesia: IV Sedation and Local RN Documented Start/Stop Times: Operation Date: 03/22/25 13:30 Case Time Into Pre-Op 03/22/25 12:19 Out of Pre-Op 03/22/25 14:48 Anesthesia Start 03/22/25 14:49 Into Room 03/22/25 14:49 Procedure Start 03/22/25 15:11 Procedure End 03/22/25 15:17 Anesthesia End 03/22/25 15:21 Out of Room 03/22/25 15:21 Into Recovery 03/22/25 15:23 Procedure Start Time: 15:11 Procedure Stop Time: 15:17 Select all DRAINS/GRAFTS/IMPLANTS that apply: None Estimated Blood Loss: 25 Specimen collected: Yes Description of specimen(s) removed: atrophic lining Description of surgery: Patient was prepped and draped in a normal sterile fashion under MAC anesthesia. A weighted speculum was placed in the vagina and the anterior lip of the cervix was grasped with a single-tooth tenaculum. A paracervical block was placed with 1% lidocaine. Cervix was progressively dilated to allow passage of a 7 mm hysteroscope. The lining was fully visualized and noted to have atrophic lining with some scarring . Uterine sounded to 7 cm. Curettage was performed and tissue removed , sent to pathology. All instruments were removed from the vagina and excellent hemostasis was noted. Patient was awoken and taken to recovery in stable condition. Surgical Findings: thin endometrial lining Complications Complications: No
--- NOTE | 2025-03-22 15:41 | DCINST_ITS ---
Discharge Instructions DC O2, CPAP, BIPAP needs Home O2 Discharge instructions: No Dressing / Incision Discharge Activity: Return to Normal Activity, May Shower and May Take a Tub Bath (after 1 week) May resume sexual activity in: 1-2 weeks Weight Bearing Status: Weight bearing as tolerated Lifting Restrictions: none Dressing / Incision Call your doctor if you observe: Fever of 101 or Higher, Using more than 1 pad per hour, Shortness of breath and Uncontrolled pain Follow Up Care Please Follow Up With: Yaa Stanford MD When: Call [phone] to schedule appointment. Test Results: Test results from this visit will be discussed in further detail at your follow- up appointment, if applicable. Discharge Plan Admission Attending Provider: Yaa Stanford Primary Care Provider: Marielos Perla Instructions Print Language: [place] Discharge Orders/Prescriptions Prescriptions: No Action duloxetine 60 mg capsule,delayed release(DR/EC) 60 mg PO DAILY insulin asp prt-insulin aspart [Novolog Mix 70-30 U-100 Insuln] 100 unit/mL (70-30) solution 20 unit subcut QAM PRN (Reason: diabetes) Patient Comments: 20-25 cilostazol 100 mg tablet 100 mg PO BID allopurinol 300 mg tablet 300 mg PO BID Mounjaro 10 mg/0.5 mL pen injector 10 mg subcut MO Patient Comments: [NO ORIGINAL SIG] nitroglycerin 0.4 mg tablet, sublingual 0.4 mg sublingual Q5-15M PRN (Reason: chest pain) Qty: 25 3RF Rx Instructions: do not exceed 3 doses per episode ranolazine 500 mg tablet extended release 12 hr 500 mg PO BID Qty: 180 3RF aspirin 81 MG tablet 81 mg PO DAILY isosorbide mononitrate 60 mg tablet extended release 24 hr 60 mg PO BID omeprazole 20 mg capsule,delayed release(DR/EC) 20 mg PO DAILY losartan 25 mg tablet 12.5 mg PO DAILY Qty: 15 0RF metoprolol tartrate 50 mg tablet 75 mg PO BID Qty: 180 1RF rosuvastatin 10 mg tablet See Rx Instructions .ROUTE .COMPLEX Qty: 90 3RF Dose Instruction: TAKE 1 TABLET BY MOUTH EVERY DAY Rx Instructions: TAKE 1 TABLET BY MOUTH EVERY DAY furosemide 40 mg tablet 40 mg PO DAILY Qty: 90 3RF Referrals / Follow Up: Marielos Perla DO [Primary Care Provider, Family Practice] Disposition Disposition (needs filled in before D/C Order can be placed): Home, Self Care
--- NOTE | 2025-03-22 16:13 | POSTOPAN2_ITS ---
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.SKOBY Spontaneous unlabored Yes 03/22/25 15:26 MOBILE CRANE OPERATOR.LUIS respirations Mental status Awake,Calm 03/22/25 15:26 MOBILE CRANE OPERATOR.SKOBY nausea No 03/22/25 15:26 MOBILE CRANE OPERATOR.SKOBY Vomiting No 03/22/25 15:26 MOBILE CRANE OPERATOR.SKOBY Anesthesia Postop Eval I: Fluid Summary Crystalloid volume administer 500 03/22/25 15:26 MOBILE CRANE OPERATOR.SKOBY (ml) Colloids volume administered ( ml) Blood Product volume administered (ml) Total IV fluid infused 500 03/22/25 15:26 MOBILE CRANE OPERATOR.ELÍASOBAnupama Anesthesia Postop Eval I: Summary Notes Anesthesia Complication No 03/22/25 15:26 MOBILE CRANE OPERATOR.ELÍASOBAnupama Anesthesia Complication Comment: Post-operative progress note Anesthesia: Postop Eval II Evaluation Mental status: Awake and Calm Pain Level: 0 nausea: No Vomiting: No Complications Anesthesia Complication: No
--- NOTE | 2025-03-22 16:13 | PCM.POSTANE2 ---
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 Spontaneous unlabored Yes 03/22/25 15:26 PARK RANGER.LUIS respirations Mental status Awake,Calm 03/22/25 15:26 PARK RANGER.SKOBY nausea No 03/22/25 15:26 PARK RANGER.SKOBY Vomiting No 03/22/25 15:26 PARK RANGER.SKOBY Anesthesia Postop Eval I: Fluid Summary Crystalloid volume administer 500 03/22/25 15:26 PARK RANGER.SKOBY (ml) Colloids volume administered ( ml) Blood Product volume administered (ml) Total IV fluid infused 500 03/22/25 15:26 PARK RANGER.ELÍASOBAnupama Anesthesia Postop Eval I: Summary Notes Anesthesia Complication No 03/22/25 15:26 PARK RANGER.ELÍASOBAnupama Anesthesia Complication Comment: Post-operative progress note Anesthesia: Postop Eval II Evaluation Mental status: Awake and Calm Pain Level: 0 nausea: No Vomiting: No Complications Anesthesia Complication: No
== END 2025-03-22 16:15 | disposition home or self-care (01) ==
LOC: SDC 12:01 → AC 12:01
PROVIDERS: PCP Family Medicine; Referring Provider Obstetrics & Gynecology; Visit Provider Obstetrics & Gynecology
PROC: 0UDB8ZZ Extraction of Endometrium, Via Natural or Artificial Opening Endoscopic (ICD-10-PCS; CPT 58558; principal; 2025-03-22 13:15)
DX: N85.8 Other specified noninflammatory disorders of uterus (principal); E11.51 Type 2 diabetes mellitus with diabetic peripheral angiopathy without gangrene; E11.69 Type 2 diabetes mellitus with other specified complication; I25.10 Atherosclerotic heart disease of native coronary artery without angina pectoris; I70.213 Atherosclerosis of native arteries of extremities with intermittent claudication, bilateral legs; I10 Essential (primary) hypertension; Z79.85 Long-term (current) use of injectable non-insulin antidiabetic drugs; E78.5 Hyperlipidemia, unspecified; F17.210 Nicotine dependence, cigarettes, uncomplicated; Z95.1 Presence of aortocoronary bypass graft; Z79.82 Long term (current) use of aspirin; Z79.899 Other long term (current) drug therapy
CPT/HCPCS: 58558; 00952; 36415; 80053; 82962; 85027; 86850; 86900; 86901; 88305; J2405